=== PATIENT | male | born 1965 | race Caucasian/White ===

== ENCOUNTER 2019-12-31 15:31 | Outpatient (REF) | payer MEDICARE, MEDICAID, SELFPAY ==
[2019-12-31 16:03] LABS: MANUAL DIFF FLAG NO
[2019-12-31 16:04] LABS: Basophils Percent Auto 0.1 % (0-2); Hematocrit 40.3 % (42-52); Hemoglobin 12.9 g/dl (14.0-18.0); Imm Gran Abs Auto 0.03 X10*3/uL (0.00-0.03); Imm Gran Pct Auto 0.4 % (0.0-0.4); Lymphocytes Absolute Auto 1.4 X10*3/uL (1.2-4.9); Lymphocytes Percent Auto 17.4 % (20-40); Mean Corpuscular Hemoglobin 29.1 pg (27.0-33.0); Mean Corpuscular Volume 90.8 fL (80-98); Mean Platelet Volume 10.3 fL (9.4-12.4); Monocytes Absolute Auto 0.5 X10*3/uL (0.1-1.2); Monocytes Percent Auto 6.7 % (2-11); Neutrophils Absolute Auto 6.1 X10*3/uL (2.0-8.3); Neutrophils Percent Auto 75.4 % (45-73); Platelet Count 145 X10*3/uL (160-400); Red Blood Count 4.44 X10*6/uL (4.60-5.80); Red Cell Distribution Width 13.2 % (11.0-16.0); White Blood Count 8.1 X10*3/uL (4.8-10.8)
== END 2019-12-31 15:32 | disposition home or self-care (01) ==
LOC: HO.LABR 15:31
PROVIDERS: Visit Provider Clinical Nurse Specialist Psychiatric/Mental Health, Adult
DX: Z79.899 Other long term (current) drug therapy (principal)
CPT/HCPCS: 36415; 85025

== ENCOUNTER 2020-01-28 15:04 | Outpatient (REF) | payer MEDICARE, MEDICAID, SELFPAY ==
[2020-01-28 15:59] LABS: MANUAL DIFF FLAG NO
[2020-01-28 16:06] LABS: Basophils Percent Auto 0.1 % (0-2); Hematocrit 42.3 % (42-52); Hemoglobin 13.5 g/dl (14.0-18.0); Imm Gran Abs Auto 0.05 X10*3/uL (0.00-0.03); Imm Gran Pct Auto 0.5 % (0.0-0.4); Lymphocytes Absolute Auto 1.6 X10*3/uL (1.2-4.9); Lymphocytes Percent Auto 16.5 % (20-40); Mean Corpuscular HGB Conc 31.9 g/dl (31.0-36.0); Mean Corpuscular Hemoglobin 28.9 pg (27.0-33.0); Mean Corpuscular Volume 90.6 fL (80-98); Mean Platelet Volume 11.2 fL (9.4-12.4); Monocytes Absolute Auto 0.7 X10*3/uL (0.1-1.2); Monocytes Percent Auto 6.6 % (2-11); Neut%MD 76.3 %; Neutrophils Absolute Auto 7.5 X10*3/uL (2.0-8.3); Neutrophils Percent Auto 76.3 % (45-73); Platelet Count 186 X10*3/uL (160-400); Red Blood Count 4.67 X10*6/uL (4.60-5.80); Red Cell Distribution Width 13.2 % (11.0-16.0); WBCANC 9.9 X10*3/uL; White Blood Count 9.9 X10*3/uL (4.8-10.8)
== END 2020-01-28 15:05 | disposition home or self-care (01) ==
LOC: HO.LABR 15:04
PROVIDERS: Visit Provider Clinical Nurse Specialist Psychiatric/Mental Health, Adult
DX: Z79.899 Other long term (current) drug therapy (principal)
CPT/HCPCS: 36415; 85025

== ENCOUNTER 2020-02-25 15:33 | Outpatient (REF) | payer MEDICARE, MEDICAID, SELFPAY ==
[2020-02-25 16:25] LABS: MANUAL DIFF FLAG NO
[2020-02-25 16:31] LABS: Basophils Percent Auto 0.1 % (0-2); Hematocrit 41.1 % (42-52); Hemoglobin 13.4 g/dl (14.0-18.0); Imm Gran Abs Auto 0.07 X10*3/uL (0.00-0.03); Imm Gran Pct Auto 0.9 % (0.0-0.4); Lymphocytes Absolute Auto 1.8 X10*3/uL (1.2-4.9); Lymphocytes Percent Auto 22.5 % (20-40); Mean Corpuscular HGB Conc 32.6 g/dl (31.0-36.0); Mean Corpuscular Hemoglobin 29.2 pg (27.0-33.0); Mean Corpuscular Volume 89.5 fL (80-98); Mean Platelet Volume 10.8 fL (9.4-12.4); Monocytes Absolute Auto 0.7 X10*3/uL (0.1-1.2); Monocytes Percent Auto 8.5 % (2-11); Neutrophils Absolute Auto 5.4 X10*3/uL (2.0-8.3); Platelet Count 173 X10*3/uL (160-400); Red Blood Count 4.59 X10*6/uL (4.60-5.80); Red Cell Distribution Width 13.4 % (11.0-16.0); WBCANC 7.9 X10*3/uL; White Blood Count 7.9 X10*3/uL (4.8-10.8)
== END 2020-02-25 15:34 | disposition home or self-care (01) ==
LOC: HO.LABR 15:33
PROVIDERS: Visit Provider Clinical Nurse Specialist Psychiatric/Mental Health, Adult
DX: Z79.899 Other long term (current) drug therapy (principal)
CPT/HCPCS: 36415; 85025

== ENCOUNTER 2020-03-31 15:24 | Outpatient (REF) | payer MEDICARE, MEDICAID, SELFPAY ==
[2020-03-31 16:01] LABS: MANUAL DIFF FLAG NO
[2020-03-31 16:08] LABS: Hematocrit 41.6 % (42-52); Imm Gran Abs Auto 0.05 X10*3/uL (0.00-0.03); Imm Gran Pct Auto 0.6 % (0.0-0.4); Lymphocytes Absolute Auto 1.7 X10*3/uL (1.2-4.9); Lymphocytes Percent Auto 20.9 % (20-40); Mean Corpuscular HGB Conc 31.3 g/dl (31.0-36.0); Mean Corpuscular Volume 92.9 fL (80-98); Mean Platelet Volume 10.2 fL (9.4-12.4); Monocytes Absolute Auto 0.5 X10*3/uL (0.1-1.2); Monocytes Percent Auto 6.6 % (2-11); Neut%MD 71.9 %; Neutrophils Absolute Auto 5.9 X10*3/uL (2.0-8.3); Neutrophils Percent Auto 71.9 % (45-73); Platelet Count 166 X10*3/uL (160-400); Red Blood Count 4.48 X10*6/uL (4.60-5.80); Red Cell Distribution Width 13.4 % (11.0-16.0); WBCANC 8.2 X10*3/uL; White Blood Count 8.2 X10*3/uL (4.8-10.8)
== END 2020-03-31 15:25 | disposition home or self-care (01) ==
LOC: HO.LABR 15:24
PROVIDERS: Visit Provider Clinical Nurse Specialist Psychiatric/Mental Health, Adult
DX: Z79.899 Other long term (current) drug therapy (principal)
CPT/HCPCS: 36415; 85025; 85048

== ENCOUNTER 2020-05-08 15:24 | Outpatient (REF) | payer MEDICARE, MEDICAID, SELFPAY ==
[2020-05-08 15:46] LABS: MANUAL DIFF FLAG NO
[2020-05-08 15:53] LABS: Hemoglobin 12.8 g/dl (14.0-18.0); Imm Gran Abs Auto 0.04 X10*3/uL (0.00-0.03); Imm Gran Pct Auto 0.5 % (0.0-0.4); Lymphocytes Absolute Auto 1.7 X10*3/uL (1.2-4.9); Mean Corpuscular HGB Conc 31.2 g/dl (31.0-36.0); Mean Corpuscular Hemoglobin 28.6 pg (27.0-33.0); Mean Corpuscular Volume 91.5 fL (80-98); Mean Platelet Volume 10.8 fL (9.4-12.4); Monocytes Absolute Auto 0.7 X10*3/uL (0.1-1.2); Monocytes Percent Auto 8.2 % (2-11); Neut%MD 70.3 %; Neutrophils Absolute Auto 5.6 X10*3/uL (2.0-8.3); Neutrophils Percent Auto 70.3 % (45-73); Platelet Count 166 X10*3/uL (160-400); Red Blood Count 4.48 X10*6/uL (4.60-5.80); Red Cell Distribution Width 13.2 % (11.0-16.0)
== END 2020-05-08 15:25 | disposition home or self-care (01) ==
LOC: HO.LABR 15:24
PROVIDERS: PCP Nurse Practitioner Family; Visit Provider Clinical Nurse Specialist Psychiatric/Mental Health, Adult
DX: Z79.899 Other long term (current) drug therapy (principal)
CPT/HCPCS: 36415; 85025; 85048

== ENCOUNTER 2020-05-28 14:15 | Outpatient (REF) | payer MEDICARE, MEDICAID, SELFPAY ==
[2020-05-28 14:52] LABS: MANUAL DIFF FLAG NO
[2020-05-28 14:54] LABS: Hemoglobin 13.7 g/dl (14.0-18.0); Imm Gran Abs Auto 0.06 X10*3/uL (0.00-0.03); Imm Gran Pct Auto 0.6 % (0.0-0.4); Lymphocytes Absolute Auto 1.6 X10*3/uL (1.2-4.9); Lymphocytes Percent Auto 14.8 % (20-40); Mean Corpuscular HGB Conc 31.1 g/dl (31.0-36.0); Mean Corpuscular Hemoglobin 28.5 pg (27.0-33.0); Mean Corpuscular Volume 91.7 fL (80-98); Mean Platelet Volume 10.7 fL (9.4-12.4); Monocytes Absolute Auto 0.7 X10*3/uL (0.1-1.2); Monocytes Percent Auto 6.6 % (2-11); Neutrophils Absolute Auto 8.3 X10*3/uL (2.0-8.3); Platelet Count 160 X10*3/uL (160-400); Red Cell Distribution Width 13.2 % (11.0-16.0); WBCANC 10.7 X10*3/uL; White Blood Count 10.7 X10*3/uL (4.8-10.8)
== END 2020-05-28 14:16 | disposition home or self-care (01) ==
LOC: HO.LABR 14:15
PROVIDERS: Visit Provider Clinical Nurse Specialist Psychiatric/Mental Health, Adult
DX: Z79.899 Other long term (current) drug therapy (principal)
CPT/HCPCS: 36415; 85025; 85048

== ENCOUNTER 2020-06-30 15:36 | Outpatient (REF) | payer MEDICARE, MEDICAID, SELFPAY ==
[2020-06-30 16:05] LABS: MANUAL DIFF FLAG NO
[2020-06-30 16:18] LABS: Hematocrit 42.6 % (42-52); Hemoglobin 13.5 g/dl (14.0-18.0); Imm Gran Abs Auto 0.04 X10*3/uL (0.00-0.03); Imm Gran Pct Auto 0.5 % (0.0-0.4); Lymphocytes Percent Auto 25.5 % (20-40); Mean Corpuscular HGB Conc 31.7 g/dl (31.0-36.0); Mean Corpuscular Hemoglobin 28.8 pg (27.0-33.0); Mean Corpuscular Volume 90.8 fL (80-98); Mean Platelet Volume 10.8 fL (9.4-12.4); Monocytes Absolute Auto 0.7 X10*3/uL (0.1-1.2); Monocytes Percent Auto 9.2 % (2-11); Neut%MD 64.8 %; Neutrophils Absolute Auto 5.1 X10*3/uL (2.0-8.3); Neutrophils Percent Auto 64.8 % (45-73); Platelet Count 181 X10*3/uL (160-400); Red Blood Count 4.69 X10*6/uL (4.60-5.80); Red Cell Distribution Width 13.4 % (11.0-16.0); WBCANC 7.9 X10*3/uL; White Blood Count 7.9 X10*3/uL (4.8-10.8)
== END 2020-06-30 15:37 | disposition home or self-care (01) ==
LOC: HO.LABR 15:36
PROVIDERS: PCP Internal Medicine; Visit Provider Clinical Nurse Specialist Psychiatric/Mental Health, Adult
DX: Z79.899 Other long term (current) drug therapy (principal)
CPT/HCPCS: 36415; 85025; 85048

== ENCOUNTER 2020-07-28 15:32 | Outpatient (REF) | payer MEDICARE, MEDICAID, SELFPAY ==
[2020-07-28 16:06] LABS: MANUAL DIFF FLAG NO
[2020-07-28 16:10] LABS: Hematocrit 41.2 % (42-52); Hemoglobin 13.1 g/dl (14.0-18.0); Imm Gran Abs Auto 0.04 X10*3/uL (0.00-0.03); Imm Gran Pct Auto 0.5 % (0.0-0.4); Lymphocytes Absolute Auto 1.6 X10*3/uL (1.2-4.9); Mean Corpuscular HGB Conc 31.8 g/dl (31.0-36.0); Mean Corpuscular Hemoglobin 28.7 pg (27.0-33.0); Mean Corpuscular Volume 90.4 fL (80-98); Mean Platelet Volume 10.9 fL (9.4-12.4); Monocytes Absolute Auto 0.7 X10*3/uL (0.1-1.2); Monocytes Percent Auto 7.3 % (2-11); Neutrophils Absolute Auto 6.6 X10*3/uL (2.0-8.3); Neutrophils Percent Auto 74.2 % (45-73); Platelet Count 174 X10*3/uL (160-400); Red Blood Count 4.56 X10*6/uL (4.60-5.80); Red Cell Distribution Width 13.3 % (11.0-16.0); White Blood Count 8.9 X10*3/uL (4.8-10.8)
== END 2020-07-28 15:33 | disposition home or self-care (01) ==
LOC: HO.LABR 15:32
PROVIDERS: PCP Internal Medicine; Visit Provider Clinical Nurse Specialist Psychiatric/Mental Health, Adult
DX: Z79.899 Other long term (current) drug therapy (principal)
CPT/HCPCS: 36415; 85025

== ENCOUNTER 2020-08-25 15:42 | Outpatient (REF) | payer MEDICARE, MEDICAID, SELFPAY ==
[2020-08-25 17:30] LABS: MANUAL DIFF FLAG NO
[2020-08-25 17:40] LABS: Hematocrit 43.4 % (42-52); Hemoglobin 13.8 g/dl (14.0-18.0); Imm Gran Abs Auto 0.04 X10*3/uL (0.00-0.03); Imm Gran Pct Auto 0.4 % (0.0-0.4); Lymphocytes Absolute Auto 1.7 X10*3/uL (1.2-4.9); Lymphocytes Percent Auto 18.5 % (20-40); Mean Corpuscular HGB Conc 31.8 g/dl (31.0-36.0); Mean Corpuscular Hemoglobin 28.6 pg (27.0-33.0); Mean Corpuscular Volume 89.9 fL (80-98); Mean Platelet Volume 12.1 fL (9.4-12.4); Monocytes Absolute Auto 0.6 X10*3/uL (0.1-1.2); Monocytes Percent Auto 6.9 % (2-11); Neut%MD 74.2 %; Neutrophils Absolute Auto 6.6 X10*3/uL (2.0-8.3); Neutrophils Percent Auto 74.2 % (45-73); Platelet Count 173 X10*3/uL (160-400); Red Blood Count 4.83 X10*6/uL (4.60-5.80); Red Cell Distribution Width 13.4 % (11.0-16.0)
== END 2020-08-25 15:43 | disposition home or self-care (01) ==
LOC: HO.LABR 15:42
PROVIDERS: Visit Provider Clinical Nurse Specialist Psychiatric/Mental Health, Adult
DX: Z79.899 Other long term (current) drug therapy (principal)
CPT/HCPCS: 36415; 85025; 85048

== ENCOUNTER 2020-08-28 12:43 | Outpatient (REF) | payer MEDICARE, MEDICAID, SELFPAY ==
[2020-08-28 13:04] LABS: COVID-19 Test Negative (Negative); IDNOW Serial# 9DD0AD1C
== END 2020-08-28 12:44 | disposition home or self-care (01) ==
LOC: HO.LAB 12:43
PROVIDERS: Visit Provider Internal Medicine
DX: Z20.822 Contact with and (suspected) exposure to COVID-19 (principal)
CPT/HCPCS: 36415; 87635; C9803

== ENCOUNTER 2020-09-22 15:25 | Outpatient (REF) | payer MEDICARE, MEDICAID, SELFPAY ==
[2020-09-22 15:38] LABS: MANUAL DIFF FLAG NO
[2020-09-22 15:42] LABS: Basophils Percent Auto 0.1 % (0-2); Hematocrit 42.6 % (42-52); Hemoglobin 13.4 g/dl (14.0-18.0); Imm Gran Abs Auto 0.06 X10*3/uL (0.00-0.03); Imm Gran Pct Auto 0.6 % (0.0-0.4); Lymphocytes Absolute Auto 1.8 X10*3/uL (1.2-4.9); Lymphocytes Percent Auto 16.9 % (20-40); Mean Corpuscular HGB Conc 31.5 g/dl (31.0-36.0); Mean Corpuscular Hemoglobin 28.5 pg (27.0-33.0); Mean Corpuscular Volume 90.4 fL (80-98); Mean Platelet Volume 10.5 fL (9.4-12.4); Monocytes Absolute Auto 0.8 X10*3/uL (0.1-1.2); Monocytes Percent Auto 7.3 % (2-11); Neutrophils Absolute Auto 8.1 X10*3/uL (2.0-8.3); Neutrophils Percent Auto 75.1 % (45-73); Platelet Count 178 X10*3/uL (160-400); Red Blood Count 4.71 X10*6/uL (4.60-5.80); Red Cell Distribution Width 13.7 % (11.0-16.0); White Blood Count 10.7 X10*3/uL (4.8-10.8)
[2020-09-22 16:40] LABS: Prostate Specific Antigen 1.27 ng/mL (<0.05-4.0)
== END 2020-09-22 15:26 | disposition home or self-care (01) ==
LOC: HO.LABR 15:25
PROVIDERS: Nurse Practitioner Family; PCP Internal Medicine; Visit Provider Clinical Nurse Specialist Psychiatric/Mental Health, Adult
DX: Z12.5 Encounter for screening for malignant neoplasm of prostate (principal); Z79.899 Other long term (current) drug therapy
CPT/HCPCS: 36415; 84153; 85025

== ENCOUNTER 2020-09-29 13:52 | Outpatient (REF) | payer MEDICARE, MEDICAID, SELFPAY ==
[2020-09-29 14:19] LABS: MANUAL DIFF FLAG NO
[2020-09-29 14:24] LABS: Hematocrit 41.8 % (42-52); Hemoglobin 13.3 g/dl (14.0-18.0); Imm Gran Abs Auto 0.05 X10*3/uL (0.00-0.03); Imm Gran Pct Auto 0.5 % (0.0-0.4); Lymphocytes Absolute Auto 1.6 X10*3/uL (1.2-4.9); Lymphocytes Percent Auto 16.1 % (20-40); Mean Corpuscular HGB Conc 31.8 g/dl (31.0-36.0); Mean Corpuscular Hemoglobin 28.6 pg (27.0-33.0); Mean Corpuscular Volume 89.9 fL (80-98); Mean Platelet Volume 10.8 fL (9.4-12.4); Monocytes Absolute Auto 0.6 X10*3/uL (0.1-1.2); Monocytes Percent Auto 6.5 % (2-11); Neutrophils Absolute Auto 7.5 X10*3/uL (2.0-8.3); Neutrophils Percent Auto 76.9 % (45-73); Platelet Count 156 X10*3/uL (160-400); Red Blood Count 4.65 X10*6/uL (4.60-5.80); Red Cell Distribution Width 13.3 % (11.0-16.0); White Blood Count 9.7 X10*3/uL (4.8-10.8)
== END 2020-09-29 13:53 | disposition home or self-care (01) ==
LOC: HO.LABR 13:52
PROVIDERS: PCP Physician Assistant; Visit Provider Clinical Nurse Specialist Psychiatric/Mental Health, Adult
DX: Z79.899 Other long term (current) drug therapy (principal)
CPT/HCPCS: 36415; 85025

== ENCOUNTER 2020-10-29 13:28 | Outpatient (REF) | payer MEDICARE, MEDICAID, SELFPAY ==
[2020-10-29 14:17] LABS: MANUAL DIFF FLAG NO
[2020-10-29 14:20] LABS: Hematocrit 41.5 % (42-52); Hemoglobin 13.1 g/dl (14.0-18.0); Imm Gran Abs Auto 0.08 X10*3/uL (0.00-0.03); Imm Gran Pct Auto 1.1 % (0.0-0.4); Lymphocytes Absolute Auto 1.5 X10*3/uL (1.2-4.9); Lymphocytes Percent Auto 19.7 % (20-40); Mean Corpuscular HGB Conc 31.6 g/dl (31.0-36.0); Mean Corpuscular Hemoglobin 28.7 pg (27.0-33.0); Mean Platelet Volume 10.6 fL (9.4-12.4); Monocytes Absolute Auto 0.6 X10*3/uL (0.1-1.2); Monocytes Percent Auto 7.9 % (2-11); Neutrophils Absolute Auto 5.4 X10*3/uL (2.0-8.3); Neutrophils Percent Auto 71.3 % (45-73); Platelet Count 170 X10*3/uL (160-400); Red Blood Count 4.56 X10*6/uL (4.60-5.80); Red Cell Distribution Width 13.4 % (11.0-16.0); White Blood Count 7.6 X10*3/uL (4.8-10.8)
== END 2020-10-29 13:29 | disposition home or self-care (01) ==
LOC: HO.LABR 13:28
PROVIDERS: PCP Internal Medicine; Visit Provider Clinical Nurse Specialist Psychiatric/Mental Health, Adult
DX: Z79.899 Other long term (current) drug therapy (principal)
CPT/HCPCS: 36415; 85025

== ENCOUNTER 2020-12-01 15:37 | Outpatient (REF) | payer MEDICARE, MEDICAID, SELFPAY ==
[2020-12-01 16:51] LABS: MANUAL DIFF FLAG NO
[2020-12-01 16:54] LABS: Hematocrit 41.1 % (42-52); Hemoglobin 13.2 g/dl (14.0-18.0); Imm Gran Abs Auto 0.06 X10*3/uL (0.00-0.03); Imm Gran Pct Auto 0.6 % (0.0-0.4); Lymphocytes Absolute Auto 1.4 X10*3/uL (1.2-4.9); Mean Corpuscular HGB Conc 32.1 g/dl (31.0-36.0); Mean Corpuscular Hemoglobin 28.8 pg (27.0-33.0); Mean Corpuscular Volume 89.7 fL (80-98); Mean Platelet Volume 11.2 fL (9.4-12.4); Monocytes Absolute Auto 0.8 X10*3/uL (0.1-1.2); Monocytes Percent Auto 8.1 % (2-11); Neutrophils Absolute Auto 7.9 X10*3/uL (2.0-8.3); Neutrophils Percent Auto 77.3 % (45-73); Platelet Count 176 X10*3/uL (160-400); Red Blood Count 4.58 X10*6/uL (4.60-5.80); Red Cell Distribution Width 13.5 % (11.0-16.0); White Blood Count 10.2 X10*3/uL (4.8-10.8)
== END 2020-12-01 15:38 | disposition home or self-care (01) ==
LOC: HO.LABR 15:37
PROVIDERS: PCP Internal Medicine; Visit Provider Clinical Nurse Specialist Psychiatric/Mental Health, Adult
DX: Z79.899 Other long term (current) drug therapy (principal)
CPT/HCPCS: 36415; 85025

== ENCOUNTER 2020-12-29 16:07 | Outpatient (REF) | payer MEDICARE, MEDICAID, SELFPAY ==
[2020-12-29 16:31] LABS: MANUAL DIFF FLAG NO
[2020-12-29 16:59] LABS: Basophils Percent Auto 0.1 % (0-2); Hematocrit 41.4 % (42-52); Hemoglobin 13.2 g/dl (14.0-18.0); Imm Gran Abs Auto 0.05 X10*3/uL (0.00-0.03); Imm Gran Pct Auto 0.5 % (0.0-0.4); Lymphocytes Absolute Auto 1.4 X10*3/uL (1.2-4.9); Lymphocytes Percent Auto 13.7 % (20-40); Mean Corpuscular HGB Conc 31.9 g/dl (31.0-36.0); Mean Corpuscular Hemoglobin 28.5 pg (27.0-33.0); Mean Corpuscular Volume 89.4 fL (80-98); Mean Platelet Volume 11.5 fL (9.4-12.4); Monocytes Absolute Auto 0.7 X10*3/uL (0.1-1.2); Monocytes Percent Auto 7.5 % (2-11); Neut%MD 78.2 %; Neutrophils Absolute Auto 7.7 X10*3/uL (2.0-8.3); Neutrophils Percent Auto 78.2 % (45-73); Platelet Count 172 X10*3/uL (160-400); Red Blood Count 4.63 X10*6/uL (4.60-5.80); Red Cell Distribution Width 13.4 % (11.0-16.0); WBCANC 9.8 X10*3/uL; White Blood Count 9.8 X10*3/uL (4.8-10.8)
== END 2020-12-29 16:08 | disposition home or self-care (01) ==
LOC: HO.LABR 16:07
PROVIDERS: PCP Internal Medicine; Visit Provider Clinical Nurse Specialist Psychiatric/Mental Health, Adult
DX: Z79.899 Other long term (current) drug therapy (principal)
CPT/HCPCS: 36415; 85025

== ENCOUNTER 2021-01-01 15:18 | Outpatient (REF) | payer MEDICARE, MEDICAID, SELFPAY ==
[2021-01-01 16:53] LABS: Lithium 0.81 mmol/L (0.60-1.20)
[2021-01-01 16:59] LABS: Anion Gap 12 (12-20); Blood Urea Nitrogen 12 mg/dL (9-16); Calcium 8.9 mg/dL (8.4-10.2); Carbon Dioxide 26 mmol/L (22-29); Chloride 108 mmol/L (96-108); Estimated Glomerular Filt Rate 54; Glucose Random 94 mg/dL (60-115); Potassium 4.1 mmol/L (3.3-5.1); Sodium 142 mmol/L (135-145)
[2021-01-01 17:21] LABS: Thyroid Stimulating Hormone 0.94 uIU/mL (0.32-4.0)
== END 2021-01-01 15:19 | disposition home or self-care (01) ==
LOC: HO.LABR 15:18
PROVIDERS: PCP Physician Assistant; Visit Provider Clinical Nurse Specialist Psychiatric/Mental Health, Adult
DX: Z79.899 Other long term (current) drug therapy (principal)
CPT/HCPCS: 36415; 80048; 80178; 84443

== ENCOUNTER 2021-01-26 15:40 | Outpatient (REF) | payer MEDICARE, MEDICAID, SELFPAY ==
[2021-01-26 15:47] LABS: MANUAL DIFF FLAG NO
[2021-01-26 16:04] LABS: Hematocrit 41.1 % (42.0-52.0); Hemoglobin 13.2 g/dl (14.0-18.0); Imm Gran Abs Auto 0.07 X10*3/uL (0.00-0.03); Imm Gran Pct Auto 0.9 % (0.0-0.4); Lymphocytes Absolute Auto 1.5 X10*3/uL (1.2-4.9); Lymphocytes Percent Auto 19.7 % (20-40); Mean Corpuscular HGB Conc 32.1 g/dl (31.0-36.0); Mean Corpuscular Hemoglobin 28.9 pg (27.0-33.0); Mean Corpuscular Volume 90.1 fL (80.0-98.0); Mean Platelet Volume 10.3 fL (9.4-12.4); Monocytes Absolute Auto 0.6 X10*3/uL (0.1-1.2); Monocytes Percent Auto 8.1 % (2-11); Neutrophils Absolute Auto 5.53 x10*3/uL (2.0-8.3); Neutrophils Percent Auto 71.3 % (45-73); Platelet Count 187 X10*3/uL (160-400); Red Blood Count 4.56 X10*6/uL (4.60-5.80); Red Cell Distribution Width 13.2 % (11.0-16.0); White Blood Count 7.8 X10*3/uL (4.8-10.8)
== END 2021-01-26 15:41 | disposition home or self-care (01) ==
LOC: HO.LAB 15:40
PROVIDERS: Visit Provider Clinical Nurse Specialist Psychiatric/Mental Health, Adult
DX: Z79.899 Other long term (current) drug therapy (principal)
CPT/HCPCS: 36415; 85025

== ENCOUNTER 2021-03-04 15:31 | Outpatient (REF) | payer MEDICARE, MEDICAID, SELFPAY ==
[2021-03-04 15:44] LABS: MANUAL DIFF FLAG NO
[2021-03-04 16:00] LABS: Basophils Percent Auto 0.1 % (0-2); Hemoglobin 13.1 g/dl (14.0-18.0); Imm Gran Abs Auto 0.02 X10*3/uL (0.00-0.03); Imm Gran Pct Auto 0.3 % (0.0-0.4); Lymphocytes Absolute Auto 1.6 X10*3/uL (1.2-4.9); Lymphocytes Percent Auto 20.7 % (20-40); Mean Corpuscular Hemoglobin 28.9 pg (27.0-33.0); Mean Corpuscular Volume 90.5 fL (80.0-98.0); Mean Platelet Volume 10.7 fL (9.4-12.4); Monocytes Absolute Auto 0.5 X10*3/uL (0.1-1.2); Monocytes Percent Auto 6.9 % (2-11); Neutrophils Absolute Auto 5.4 x10*3/uL (2.0-8.3); Platelet Count 168 X10*3/uL (160-400); Red Blood Count 4.53 X10*6/uL (4.60-5.80); WBCANC 7.5 X10*3/uL; White Blood Count 7.5 X10*3/uL (4.8-10.8)
== END 2021-03-04 15:32 | disposition home or self-care (01) ==
LOC: HO.LAB 15:31
PROVIDERS: PCP Internal Medicine; Visit Provider Clinical Nurse Specialist Psychiatric/Mental Health, Adult
DX: Z79.899 Other long term (current) drug therapy (principal)
CPT/HCPCS: 36415; 85025

== ENCOUNTER 2021-03-30 13:16 | Outpatient (REF) | payer MEDICARE, MEDICAID, SELFPAY ==
[2021-03-30 13:37] LABS: MANUAL DIFF FLAG NO
[2021-03-30 14:04] LABS: Hematocrit 44.4 % (42.0-52.0); Hemoglobin 13.9 g/dl (14.0-18.0); Imm Gran Abs Auto 0.07 X10*3/uL (0.00-0.03); Imm Gran Pct Auto 0.9 % (0.0-0.4); Lymphocytes Absolute Auto 1.4 X10*3/uL (1.2-4.9); Lymphocytes Percent Auto 18.3 % (20-40); Mean Corpuscular HGB Conc 31.3 g/dl (31.0-36.0); Mean Corpuscular Hemoglobin 28.5 pg (27.0-33.0); Mean Platelet Volume 11.2 fL (9.4-12.4); Monocytes Absolute Auto 0.6 X10*3/uL (0.1-1.2); Monocytes Percent Auto 7.7 % (2-11); Neutrophils Absolute Auto 5.6 x10*3/uL (2.0-8.3); Neutrophils Percent Auto 73.1 % (45-73); Platelet Count 169 X10*3/uL (160-400); Red Blood Count 4.88 X10*6/uL (4.60-5.80); Red Cell Distribution Width 13.2 % (11.0-16.0); White Blood Count 7.7 X10*3/uL (4.8-10.8)
== END 2021-03-30 13:17 | disposition home or self-care (01) ==
LOC: HO.LABR 13:16
PROVIDERS: Clinical Nurse Specialist Psychiatric/Mental Health, Adult; PCP Physician Assistant; Visit Provider Physician Assistant
DX: Z79.899 Other long term (current) drug therapy (principal)
CPT/HCPCS: 36415; 85025

== ENCOUNTER 2021-04-27 15:28 | Outpatient (REF) | payer MEDICARE, MEDICAID, SELFPAY ==
[2021-04-27 15:49] LABS: MANUAL DIFF FLAG NO
[2021-04-27 16:03] LABS: Basophils Percent Auto 0.1 % (0-2); Hematocrit 42.3 % (42.0-52.0); Hemoglobin 13.3 g/dl (14.0-18.0); Imm Gran Abs Auto 0.05 X10*3/uL (0.00-0.03); Imm Gran Pct Auto 0.5 % (0.0-0.4); Lymphocytes Absolute Auto 1.5 X10*3/uL (1.2-4.9); Lymphocytes Percent Auto 14.3 % (20-40); Mean Corpuscular HGB Conc 31.4 g/dl (31.0-36.0); Mean Corpuscular Hemoglobin 28.4 pg (27.0-33.0); Mean Corpuscular Volume 90.2 fL (80.0-98.0); Mean Platelet Volume 10.6 fL (9.4-12.4); Monocytes Absolute Auto 0.7 X10*3/uL (0.1-1.2); Monocytes Percent Auto 6.7 % (2-11); Neut%MD 78.4 %; Neutrophils Absolute Auto 8.1 x10*3/uL (2.0-8.3); Neutrophils Percent Auto 78.4 % (45-73); Platelet Count 162 X10*3/uL (160-400); Red Blood Count 4.69 X10*6/uL (4.60-5.80); Red Cell Distribution Width 13.2 % (11.0-16.0); WBCANC 10.4 X10*3/uL; White Blood Count 10.4 X10*3/uL (4.8-10.8)
== END 2021-04-27 15:29 | disposition home or self-care (01) ==
LOC: HO.LABR 15:28
PROVIDERS: PCP Physician Assistant; Visit Provider Clinical Nurse Specialist Psychiatric/Mental Health, Adult
DX: Z79.899 Other long term (current) drug therapy (principal)
CPT/HCPCS: 36415; 85025

== ENCOUNTER 2021-05-17 15:09 | Outpatient (REF) | payer MEDICARE, MEDICAID, SELFPAY ==
--- NOTE | ~2021-05-17 | XR_ITS ---
EXAMINATION: XR HIP, RIGHT CLINICAL INFORMATION: Pain COMPARISON: None TECHNIQUE: Two views of the right hip and one view of the pelvis. FINDINGS: Bone alignment is normal. No fracture or dislocation is seen. The right hip joint is normal. Bones of the pelvis are unremarkable. There is mild arthritis with small osteophyte at the left hip joint. There is proliferative bone reaction of the adjacent to both iliac crests. There are degenerative changes of the lower lumbar spine. XR/XR hip RT min 2V IMPRESSION: Normal-appearing right hip.
== END 2021-05-17 15:10 | disposition home or self-care (01) ==
LOC: HO.XRAY 15:09
PROVIDERS: PCP Internal Medicine; Visit Provider Physician Assistant
DX: M25.551 Pain in right hip (principal)
CPT/HCPCS: 73502

== ENCOUNTER 2021-05-26 15:23 | Outpatient (REF) | payer MEDICARE, MEDICAID, SELFPAY ==
[2021-05-26 15:33] LABS: MANUAL DIFF FLAG NO
[2021-05-26 15:44] LABS: Hematocrit 43.7 % (42.0-52.0); Hemoglobin 13.9 g/dl (14.0-18.0); Imm Gran Abs Auto 0.03 X10*3/uL (0.00-0.03); Imm Gran Pct Auto 0.4 % (0.0-0.4); Lymphocytes Absolute Auto 1.3 X10*3/uL (1.2-4.9); Lymphocytes Percent Auto 17.4 % (20-40); Mean Corpuscular HGB Conc 31.8 g/dl (31.0-36.0); Mean Corpuscular Hemoglobin 28.5 pg (27.0-33.0); Mean Corpuscular Volume 89.5 fL (80.0-98.0); Mean Platelet Volume 10.9 fL (9.4-12.4); Monocytes Absolute Auto 0.5 X10*3/uL (0.1-1.2); Neutrophils Absolute Auto 5.5 x10*3/uL (2.0-8.3); Neutrophils Percent Auto 75.2 % (45-73); Platelet Count 159 X10*3/uL (160-400); Red Blood Count 4.88 X10*6/uL (4.60-5.80); Red Cell Distribution Width 13.2 % (11.0-16.0); White Blood Count 7.3 X10*3/uL (4.8-10.8)
== END 2021-05-26 15:24 | disposition home or self-care (01) ==
LOC: HO.LABR 15:23
PROVIDERS: Visit Provider Clinical Nurse Specialist Psychiatric/Mental Health, Adult
DX: Z79.899 Other long term (current) drug therapy (principal)
CPT/HCPCS: 36415; 85025

== ENCOUNTER 2021-06-15 07:46 | Day surgery (SDC) | payer MEDICARE, MEDICAID, SELFPAY ==
[2021-06-10 15:32] VITALS: BMI 39.7
--- NOTE | 2021-06-14 10:49 | HO.ANESPROP2 ---
Documented by User: Odalys Whatley NP 06/14/21 10:50 HPI - Anesthesia Eval Consult details Narrative: 55yo M for Colonoscopy PMFSH Active Problems Active Problems: All Active Problems (Updated 06/10/21 @ 15:21 by Eileen Shields RN) Cough (Acute) Benign prostate hyperplasia (Acute) Adult general medical exam (Acute) Essential hypertension (Acute) Right hip pain (Acute) Status post fall (Acute) Screening for colon cancer (Acute) Screening for prostate cancer (Acute) Essential (primary) hypertension (Acute) Diabetes mellitus (Acute) Schizophrenia, unspecified (Acute) Past Medical History Medical History BPH (benign prostatic hyperplasia) Diabetes mellitus Essential (primary) hypertension Schizophrenia, unspecified Screening for colon cancer Screening for prostate cancer Family History Family History Mother Cancer Father Kidney agenesis Surgical History Surgical History History of root canal procedure History of tooth extraction Social History Social History Housing: Apartment Alcohol intake: never Patient Tobacco Use Status: Never used Tobacco e-Cigarette/Vaping Use: Never Used Second Hand Smoke Exposure: No Use of substances other than those prescribed or required for medical reasons: No Are you DNR?: No Advance Directives: No Advance Directives Information Provided: Yes Recently lost weight without trying: No service: No Current occupational status: employed Cognitive needs: No Hearing needs: No Vision needs: No Meds Allergies Allergy/AdvReac Type Severity Reaction Status Date / Time No Known Allergies [NKA] Allergy Unknown NONE Verified 05/17/21 14:49 Home Medications Medication Instructions Recorded Confirmed Last Taken Type clozapine 100 mg tablet mg PO 05/18/20 05/17/21 Unknown History lithium carbonate 300 mg capsule mg PO 05/18/20 05/17/21 Unknown History lorazepam 2 mg tablet mg PO 05/18/20 05/17/21 Unknown History olanzapine 10 mg tablet mg PO 05/18/20 05/17/21 Unknown History sertraline 100 mg tablet mg PO 05/18/20 05/17/21 Unknown History Exam Exam Date and Time: June 14, 2021 1049 Height,Weight and Vital Signs: Height 5 ft 7 in Weight 115.212 kg Pertinent Lab Results Pertinent Lab Results: Laboratory Tests 01/01/21 05/26/21 15:54 15:31 WBC 7.3 Hgb 13.9 L Hct 43.7 Plt Count 159 L Sodium 142 Potassium 4.1 Chloride 108 Carbon Dioxide 26 BUN 12 Creatinine 1.36 Assessment and Plan Assessment Anesthesia Assessment: Chart Reviewed Documented by User: Luis Antonio Smith MD 06/15/21 15:32 PMFSH Past Medical History Medical History BPH (benign prostatic hyperplasia) Diabetes mellitus Essential (primary) hypertension Schizophrenia, unspecified Screening for colon cancer Screening for prostate cancer Family History Family History Mother Cancer Father Kidney agenesis Family history of problems with anesthesia: No Surgical History Surgical History History of root canal procedure History of tooth extraction History of Problems with Anesthesia: No Social History Social History Housing: Apartment Alcohol intake: never Patient Tobacco Use Status: Never used Tobacco e-Cigarette/Vaping Use: Never Used Second Hand Smoke Exposure: No Use of substances other than those prescribed or required for medical reasons: No Are you DNR?: No Advance Directives: No Advance Directives Information Provided: Yes Recently lost weight without trying: No service: No Current occupational status: employed Cognitive needs: No Hearing needs: No Vision needs: No Meds Allergies Allergy/AdvReac Type Severity Reaction Status Date / Time No Known Allergies [NKA] Allergy Unknown NONE Verified 05/17/21 14:49 Home Medications Medication Instructions Recorded Confirmed Last Taken Type clozapine 100 mg tablet mg PO 05/18/20 05/17/21 Unknown History lithium carbonate 300 mg capsule mg PO 05/18/20 05/17/21 Unknown History lorazepam 2 mg tablet mg PO 05/18/20 05/17/21 Unknown History olanzapine 10 mg tablet mg PO 05/18/20 05/17/21 Unknown History sertraline 100 mg tablet mg PO 05/18/20 05/17/21 Unknown History Exam Airway Mallampati Class: III TM Dist: >3cm Neck ROM: Full Partial: Upper Loose/Missing/Broken Teeth: Yes Heart: rrr Lungs: bl breath sounds Assessment and Plan Assessment Anesthesia Assessment: Anesthesia Plan Discussed Final Anesthetic Review Family History of Problems with Anesthesia: No History of Problems with Anesthesia: No NPO: Yes ASA Class: III Final Preanesthetic Review: Meds/Allgs Chart Reviewed, Consent Obtained/Reviewed and Anes Risks/Benef Reviewed Patient Risk: Intermediate Procedure Risk: Intermediate Anesthetic Plan Anesthetic Plan: MAC: Disposition: Standard PACU
[2021-06-15 08:14] VITALS: BP 152/81; PULSE 77; RESP 20; TEMP 37.1; O2SAT 96
[2021-06-15] MEDS: Lactated Ringers 1,000 ML 100 ML IVCONT (08:20)
--- NOTE | 2021-06-15 08:50 | MHC.SHP ---
Pre-Procedural Eval Section A Date of Service: 06/15/21 The patient is an INPATIENT: No Changes since office visit: No Cold of Flu in the past 2 weeks, No New Medical Problems, No Changes in Medication and No Patient answered all questions The History & Physical has been completed within 30 days and I have reviewed it.: Yes Section B Chief Complaint: screening Allergies: Allergies Allergy/AdvReac Type Severity Reaction Status Date / Time No Known Allergies [NKA] Allergy Unknown NONE Verified 05/17/21 14:49 Plan I have reviewed the history and physical and performed a pertinent physical examination on my patient. No changes have occurred unless specified.
[2021-06-15 08:53] LABS: Glucose, Whole Blood 127 mg/dL (60-115)
--- NOTE | 2021-06-15 10:14 | P.BOP_ITS ---
Brief Operative Note Date of Service: 06/15/21 Pre-op diagnosis: screening colonoscopy Post-op diagnosis: same (colon polyps) Procedure: [id number] Surgeon: Remy Rodriguez Anesthesia: MAC Was an Micropaleontologist used for this Procedure?: No Estimated blood loss (mL): 20 Pathology: other (multiple polyps) Condition: stable Disposition: PACU
--- NOTE | 2021-06-15 10:14 | PM.OP ---
Brief Operative Note Date of Service: 06/15/21 Pre-op diagnosis: screening colonoscopy Post-op diagnosis: same (colon polyps) Procedure: [id number] Surgeon: Remy Rodriguez Anesthesia: MAC Was an [place] Stitcher used for this Procedure?: No Estimated blood loss (mL): 20 Pathology: other (multiple polyps) Condition: stable Disposition: PACU
[2021-06-15 10:17] VITALS: BP 136/79; PULSE 86; RESP 16; TEMP 36.7; O2SAT 97
[2021-06-15 10:32] VITALS: BP 149/97; PULSE 83; RESP 16; O2SAT 96
[2021-06-15 10:37] VITALS: BP 153/90; PULSE 86; RESP 16; TEMP 37.1; O2SAT 97
--- NOTE | 2021-06-15 12:03 | OP_ITS ---
SURGEON: Remy Rodriguez MD PREOPERATIVE DIAGNOSIS: POSTOPERATIVE DIAGNOSIS: PROCEDURE PERFORMED: Colonoscopy to the terminal ileum with snare polypectomy and endoscopic clip placement for control of hemorrhage. ESTIMATED BLOOD LOSS: COMPLICATIONS: ANESTHESIA: ASSISTANTS: SPECIMENS: MEDICATIONS: Monitored anesthesia care. DESCRIPTION OF PROCEDURE: History and physical were performed. The risks and benefits of the procedure were explained to the patient. An informed consent was obtained. The patient was placed in the left lateral decubitus position. A digital rectal exam was performed and was found to be normal. The Olympus pediatric video colonoscope was introduced into the rectum and advanced to the cecum without difficulty. The cecum was identified by transillumination, palpation, and identification of ileocecal valve. Examination was performed. The scope was removed. He tolerated the procedure well and was sent to the recovery area in stable condition. FINDINGS: The terminal ileum was examined and appeared normal. The visualized colonic mucosa was normal. The quality of the prep was good. Multiple colonic polyps were identified and removed with a snare and recovered using suction and Hill Net. The procedure was extended and difficult due to the multiple colonic polyps requiring removal and reinsertion of the colonoscope on multiple occasions. In the right colon was a 15 mm polyp, which was snared and piecemeal suctioned after snaring. In the transverse colon were 7 polyps, 3 of which were greater than 10 mm, which was all snared and recovered with Hill net and suctioned. At 40 cm was a 15-20 mm polyp with a broad-base, which was snared. There was arterial bleeding from the polypectomy site, which was controlled with cautery using the tip of the snare and placement of 2 hemostatic endoscopic clips with excellent hemostasis at the termination of the procedure. The polyp was recovered with the colonoscope. A final polyp at 40 cm measuring less than 10 mm was snared, but could not be recovered because of technical reasons. Retroflexed examination showed moderate-sized internal hemorrhoids. IMPRESSION: Colon polyps. RECOMMENDATION: Follow up the biopsy results. MD WILFRIDO Laguerre/ZULEIKA / [id number]
== END 2021-06-15 11:39 | disposition home or self-care (01) ==
PROVIDERS: PCP Internal Medicine; Visit Provider Internal Medicine Gastroenterology
PROC: 0DJD8ZZ Inspection of Lower Intestinal Tract, Via Natural or Artificial Opening Endoscopic (ICD-10-PCS; CPT 45378; principal; 2021-06-15 09:00)
DX: Z12.11 Encounter for screening for malignant neoplasm of colon (principal); D12.2 Benign neoplasm of ascending colon; D12.3 Benign neoplasm of transverse colon; D12.5 Benign neoplasm of sigmoid colon; K64.8 Other hemorrhoids; K59.00 Constipation, unspecified; I10 Essential (primary) hypertension; E11.9 Type 2 diabetes mellitus without complications; N40.0 Benign prostatic hyperplasia without lower urinary tract symptoms; F20.9 Schizophrenia, unspecified; Z79.84 Long term (current) use of oral hypoglycemic drugs; Z79.899 Other long term (current) drug therapy
CPT/HCPCS: 45385; 82947; 88305; J2250

== ENCOUNTER 2021-07-07 15:07 | Outpatient (REF) | payer MEDICARE, MEDICAID, SELFPAY ==
[2021-07-07 15:22] LABS: MANUAL DIFF FLAG NO
[2021-07-07 15:27] LABS: Basophils Percent Auto 0.1 % (0-2); Hematocrit 40.3 % (42.0-52.0); Hemoglobin 12.7 g/dl (14.0-18.0); Imm Gran Abs Auto 0.02 X10*3/uL (0.00-0.03); Imm Gran Pct Auto 0.3 % (0.0-0.4); Lymphocytes Absolute Auto 1.4 X10*3/uL (1.2-4.9); Mean Corpuscular HGB Conc 31.5 g/dl (31.0-36.0); Mean Corpuscular Hemoglobin 28.2 pg (27.0-33.0); Mean Corpuscular Volume 89.6 fL (80.0-98.0); Mean Platelet Volume 11.3 fL (9.4-12.4); Monocytes Absolute Auto 0.6 X10*3/uL (0.1-1.2); Monocytes Percent Auto 7.8 % (2-11); Neutrophils Absolute Auto 5.9 x10*3/uL (2.0-8.3); Neutrophils Percent Auto 73.8 % (45-73); Platelet Count 155 X10*3/uL (160-400); Red Cell Distribution Width 13.2 % (11.0-16.0)
== END 2021-07-07 15:08 | disposition home or self-care (01) ==
LOC: HO.LABR 15:07
PROVIDERS: Visit Provider Clinical Nurse Specialist Psychiatric/Mental Health, Adult
DX: Z79.899 Other long term (current) drug therapy (principal)
CPT/HCPCS: 36415; 85025

== ENCOUNTER 2021-07-27 15:25 | Outpatient (REF) | payer MEDICARE, MEDICAID, SELFPAY ==
[2021-07-27 16:13] LABS: Basophils Percent Auto 0.1 % (0-2); Hematocrit 41.6 % (42.0-52.0); Hemoglobin 13.3 g/dl (14.0-18.0); Imm Gran Abs Auto 0.05 X10*3/uL (0.00-0.03); Imm Gran Pct Auto 0.7 % (0.0-0.4); Lymphocytes Absolute Auto 1.5 X10*3/uL (1.2-4.9); Lymphocytes Percent Auto 21.6 % (20-40); MANUAL DIFF FLAG NO; Mean Corpuscular Hemoglobin 28.7 pg (27.0-33.0); Mean Corpuscular Volume 89.8 fL (80.0-98.0); Mean Platelet Volume 11.2 fL (9.4-12.4); Monocytes Absolute Auto 0.6 X10*3/uL (0.1-1.2); Monocytes Percent Auto 8.7 % (2-11); Neut%MD 68.9 %; Neutrophils Absolute Auto 4.9 x10*3/uL (2.0-8.3); Neutrophils Percent Auto 68.9 % (45-73); Platelet Count 177 X10*3/uL (160-400); Red Blood Count 4.63 X10*6/uL (4.60-5.80); Red Cell Distribution Width 13.3 % (11.0-16.0); WBCANC 7.1 X10*3/uL; White Blood Count 7.1 X10*3/uL (4.8-10.8)
== END 2021-07-27 15:26 | disposition home or self-care (01) ==
LOC: HO.LABR 15:25
PROVIDERS: Visit Provider Clinical Nurse Specialist Psychiatric/Mental Health, Adult
DX: Z79.899 Other long term (current) drug therapy (principal)
CPT/HCPCS: 36415; 85025

== ENCOUNTER 2021-08-31 15:32 | Outpatient (REF) | payer MEDICARE, MEDICAID, SELFPAY ==
[2021-08-31 15:46] LABS: MANUAL DIFF FLAG NO
[2021-08-31 16:24] LABS: Hematocrit 40.8 % (42.0-52.0); Hemoglobin 12.8 g/dl (14.0-18.0); Imm Gran Abs Auto 0.05 X10*3/uL (0.00-0.03); Imm Gran Pct Auto 0.6 % (0.0-0.4); Lymphocytes Absolute Auto 1.4 X10*3/uL (1.2-4.9); Lymphocytes Percent Auto 17.1 % (20-40); Mean Corpuscular HGB Conc 31.4 g/dl (31.0-36.0); Mean Corpuscular Hemoglobin 27.9 pg (27.0-33.0); Mean Corpuscular Volume 88.9 fL (80.0-98.0); Mean Platelet Volume 10.9 fL (9.4-12.4); Monocytes Absolute Auto 0.6 X10*3/uL (0.1-1.2); Monocytes Percent Auto 7.6 % (2-11); Neutrophils Absolute Auto 6.3 x10*3/uL (2.0-8.3); Neutrophils Percent Auto 74.7 % (45-73); Platelet Count 172 X10*3/uL (160-400); Red Blood Count 4.59 X10*6/uL (4.60-5.80); White Blood Count 8.4 X10*3/uL (4.8-10.8)
== END 2021-08-31 15:33 | disposition home or self-care (01) ==
LOC: HO.LABR 15:32
PROVIDERS: Visit Provider Clinical Nurse Specialist Psychiatric/Mental Health, Adult
DX: Z79.899 Other long term (current) drug therapy (principal)
CPT/HCPCS: 36415; 85025

== ENCOUNTER 2021-09-29 11:06 | Outpatient (REF) | payer MEDICARE, MEDICAID, SELFPAY ==
[2021-09-29 11:29] LABS: MANUAL DIFF FLAG NO
[2021-09-29 11:47] LABS: Hematocrit 41.5 % (42.0-52.0); Hemoglobin 12.9 g/dl (14.0-18.0); Imm Gran Abs Auto 0.04 X10*3/uL (0.00-0.03); Imm Gran Pct Auto 0.6 % (0.0-0.4); Lymphocytes Absolute Auto 1.2 X10*3/uL (1.2-4.9); Lymphocytes Percent Auto 17.3 % (20-40); Mean Corpuscular HGB Conc 31.1 g/dl (31.0-36.0); Mean Corpuscular Hemoglobin 27.6 pg (27.0-33.0); Mean Corpuscular Volume 88.7 fL (80.0-98.0); Mean Platelet Volume 11.9 fL (9.4-12.4); Monocytes Absolute Auto 0.5 X10*3/uL (0.1-1.2); Monocytes Percent Auto 7.2 % (2-11); Neut%MD 74.9 %; Neutrophils Absolute Auto 5.3 x10*3/uL (2.0-8.3); Neutrophils Percent Auto 74.9 % (45-73); Platelet Count 151 X10*3/uL (160-400); Red Blood Count 4.68 X10*6/uL (4.60-5.80); Red Cell Distribution Width 13.2 % (11.0-16.0); WBCANC 7.1 X10*3/uL; White Blood Count 7.1 X10*3/uL (4.8-10.8)
== END 2021-09-29 11:07 | disposition home or self-care (01) ==
LOC: HO.LABR 11:06
PROVIDERS: Absent Provider Clinical Nurse Specialist Psychiatric/Mental Health, Adult; PCP Internal Medicine; Visit Provider Nurse Practitioner Family
DX: Z79.899 Other long term (current) drug therapy (principal)
CPT/HCPCS: 36415; 85025

== ENCOUNTER 2021-10-19 15:21 | Outpatient (REF) | payer MEDICARE, MEDICAID, SELFPAY ==
[2021-10-23 21:56] LABS: Clozapine (Clozaril) 458 mcg/L; Norclozapine 215 mcg/L (25-400)
== END 2021-10-19 15:22 | disposition home or self-care (01) ==
LOC: HO.LABR 15:21
PROVIDERS: Visit Provider Clinical Nurse Specialist Psychiatric/Mental Health, Adult
DX: Z79.899 Other long term (current) drug therapy (principal)
CPT/HCPCS: 36415; 80159; 80178

== ENCOUNTER 2021-11-15 14:33 | Outpatient (REF) | payer MEDICARE, MEDICAID, SELFPAY ==
[2021-11-15 14:48] LABS: MANUAL DIFF FLAG NO
[2021-11-15 15:16] LABS: Hematocrit 41.9 % (42.0-52.0); Hemoglobin 13.2 g/dl (14.0-18.0); Imm Gran Abs Auto 0.03 X10*3/uL (0.00-0.03); Imm Gran Pct Auto 0.4 % (0.0-0.4); Lymphocytes Absolute Auto 1.3 X10*3/uL (1.2-4.9); Lymphocytes Percent Auto 18.1 % (20-40); Mean Corpuscular HGB Conc 31.5 g/dl (31.0-36.0); Mean Corpuscular Hemoglobin 27.8 pg (27.0-33.0); Mean Corpuscular Volume 88.2 fL (80.0-98.0); Mean Platelet Volume 11.9 fL (9.4-12.4); Monocytes Absolute Auto 0.5 X10*3/uL (0.1-1.2); Monocytes Percent Auto 7.3 % (2-11); Neutrophils Absolute Auto 5.5 x10*3/uL (2.0-8.3); Neutrophils Percent Auto 74.2 % (45-73); Platelet Count 162 X10*3/uL (160-400); Red Blood Count 4.75 X10*6/uL (4.60-5.80); White Blood Count 7.4 X10*3/uL (4.8-10.8)
== END 2021-11-15 14:34 | disposition home or self-care (01) ==
LOC: HO.LABR 14:33
PROVIDERS: PCP Internal Medicine; Visit Provider Clinical Nurse Specialist Psychiatric/Mental Health, Adult
DX: Z79.899 Other long term (current) drug therapy (principal)
CPT/HCPCS: 36415; 85025

== ENCOUNTER 2021-11-30 15:50 | Outpatient (REF) | payer MEDICARE, MEDICAID, SELFPAY ==
[2021-11-30 16:22] LABS: MANUAL DIFF FLAG NO
[2021-11-30 16:51] LABS: Eosinophils Percent Auto 0.1 % (0-4); Hematocrit 39.8 % (42.0-52.0); Hemoglobin 12.3 g/dl (14.0-18.0); Imm Gran Abs Auto 0.03 X10*3/uL (0.00-0.03); Imm Gran Pct Auto 0.4 % (0.0-0.4); Lymphocytes Absolute Auto 1.5 X10*3/uL (1.2-4.9); Lymphocytes Percent Auto 20.5 % (20-40); Mean Corpuscular HGB Conc 30.9 g/dl (31.0-36.0); Mean Corpuscular Hemoglobin 27.7 pg (27.0-33.0); Mean Corpuscular Volume 89.6 fL (80.0-98.0); Mean Platelet Volume 11.5 fL (9.4-12.4); Monocytes Absolute Auto 0.6 X10*3/uL (0.1-1.2); Monocytes Percent Auto 8.4 % (2-11); Neutrophils Absolute Auto 5.2 x10*3/uL (2.0-8.3); Neutrophils Percent Auto 70.6 % (45-73); Platelet Count 172 X10*3/uL (160-400); Red Blood Count 4.44 X10*6/uL (4.60-5.80); Red Cell Distribution Width 13.3 % (11.0-16.0); White Blood Count 7.4 X10*3/uL (4.8-10.8)
== END 2021-11-30 15:51 | disposition home or self-care (01) ==
LOC: HO.LABR 15:50
PROVIDERS: PCP Internal Medicine; Visit Provider Clinical Nurse Specialist Psychiatric/Mental Health, Adult
DX: Z79.899 Other long term (current) drug therapy (principal)
CPT/HCPCS: 36415; 85025

== ENCOUNTER 2021-12-30 15:05 | Outpatient (REF) | payer MEDICARE, MEDICAID, SELFPAY ==
[2021-12-30 15:16] LABS: MANUAL DIFF FLAG NO
[2021-12-30 15:54] LABS: Basophils Percent Auto 0.1 % (0-2); Hematocrit 40.2 % (42.0-52.0); Hemoglobin 12.8 g/dl (14.0-18.0); Imm Gran Abs Auto 0.05 X10*3/uL (0.00-0.03); Imm Gran Pct Auto 0.6 % (0.0-0.4); Lymphocytes Absolute Auto 1.5 X10*3/uL (1.2-4.9); Lymphocytes Percent Auto 19.3 % (20-40); Mean Corpuscular HGB Conc 31.8 g/dl (31.0-36.0); Mean Corpuscular Hemoglobin 27.6 pg (27.0-33.0); Mean Corpuscular Volume 86.8 fL (80.0-98.0); Mean Platelet Volume 11.4 fL (9.4-12.4); Monocytes Absolute Auto 0.6 X10*3/uL (0.1-1.2); Monocytes Percent Auto 7.7 % (2-11); Neut%MD 72.3 %; Neutrophils Absolute Auto 5.7 x10*3/uL (2.0-8.3); Neutrophils Percent Auto 72.3 % (45-73); Platelet Count 175 X10*3/uL (160-400); Red Blood Count 4.63 X10*6/uL (4.60-5.80); Red Cell Distribution Width 13.2 % (11.0-16.0); WBCANC 7.8 X10*3/uL; White Blood Count 7.8 X10*3/uL (4.8-10.8)
== END 2021-12-30 15:06 | disposition home or self-care (01) ==
LOC: HO.LABR 15:05
PROVIDERS: PCP Internal Medicine; Visit Provider Clinical Nurse Specialist Psychiatric/Mental Health, Adult
DX: Z79.899 Other long term (current) drug therapy (principal)
CPT/HCPCS: 36415; 85025

== ENCOUNTER 2022-01-25 15:23 | Outpatient (REF) | payer MEDICARE, MEDICAID, SELFPAY ==
[2022-01-25 15:36] LABS: MANUAL DIFF FLAG NO
[2022-01-25 15:50] LABS: Hemoglobin 12.2 g/dl (14.0-18.0); Imm Gran Abs Auto 0.03 X10*3/uL (0.00-0.03); Imm Gran Pct Auto 0.5 % (0.0-0.4); Lymphocytes Absolute Auto 1.5 X10*3/uL (1.2-4.9); Lymphocytes Percent Auto 23.8 % (20-40); Mean Corpuscular HGB Conc 30.5 g/dl (31.0-36.0); Mean Corpuscular Hemoglobin 27.4 pg (27.0-33.0); Mean Corpuscular Volume 89.7 fL (80.0-98.0); Mean Platelet Volume 11.2 fL (9.4-12.4); Monocytes Absolute Auto 0.5 X10*3/uL (0.1-1.2); Monocytes Percent Auto 8.3 % (2-11); Neutrophils Absolute Auto 4.3 x10*3/uL (2.0-8.3); Neutrophils Percent Auto 67.4 % (45-73); Platelet Count 154 X10*3/uL (160-400); Red Blood Count 4.46 X10*6/uL (4.60-5.80); Red Cell Distribution Width 13.2 % (11.0-16.0); White Blood Count 6.4 X10*3/uL (4.8-10.8)
== END 2022-01-25 15:24 | disposition home or self-care (01) ==
LOC: HO.LABR 15:23
PROVIDERS: PCP Internal Medicine; Visit Provider Clinical Nurse Specialist Psychiatric/Mental Health, Adult
DX: Z79.899 Other long term (current) drug therapy (principal)
CPT/HCPCS: 36415; 85025

== ENCOUNTER 2022-02-28 09:39 | Outpatient (REF) | payer MEDICARE, MEDICAID, SELFPAY ==
[2022-02-28 09:52] LABS: MANUAL DIFF FLAG NO
[2022-02-28 10:52] LABS: Basophils Percent Auto 0.1 % (0-2); Hematocrit 42.3 % (42.0-52.0); Hemoglobin 13.2 g/dl (14.0-18.0); Imm Gran Abs Auto 0.04 X10*3/uL (0.00-0.03); Imm Gran Pct Auto 0.5 % (0.0-0.4); Lymphocytes Absolute Auto 1.6 X10*3/uL (1.2-4.9); Lymphocytes Percent Auto 21.8 % (20-40); Mean Corpuscular HGB Conc 31.2 g/dl (31.0-36.0); Mean Corpuscular Hemoglobin 28.3 pg (27.0-33.0); Mean Corpuscular Volume 90.8 fL (80.0-98.0); Monocytes Absolute Auto 0.6 X10*3/uL (0.1-1.2); Monocytes Percent Auto 7.6 % (2-11); Neutrophils Absolute Auto 5.1 x10*3/uL (2.0-8.3); Platelet Count 171 X10*3/uL (160-400); Red Blood Count 4.66 X10*6/uL (4.60-5.80); Red Cell Distribution Width 13.9 % (11.0-16.0); WBCANC 7.3 X10*3/uL; White Blood Count 7.3 X10*3/uL (4.8-10.8)
== END 2022-02-28 09:40 | disposition home or self-care (01) ==
LOC: HO.LABR 09:39
PROVIDERS: Visit Provider Clinical Nurse Specialist Psychiatric/Mental Health, Adult
DX: Z79.899 Other long term (current) drug therapy (principal)
CPT/HCPCS: 36415; 85025

== ENCOUNTER 2022-03-30 10:17 | Outpatient (REF) | payer MEDICARE, MEDICAID, SELFPAY ==
[2022-03-30 10:34] LABS: MANUAL DIFF FLAG NO
[2022-03-30 10:45] LABS: Hematocrit 40.9 % (42.0-52.0); Hemoglobin 12.7 g/dl (14.0-18.0); Imm Gran Abs Auto 0.05 X10*3/uL (0.00-0.03); Imm Gran Pct Auto 0.8 % (0.0-0.4); Lymphocytes Absolute Auto 1.4 X10*3/uL (1.2-4.9); Mean Corpuscular HGB Conc 31.1 g/dl (31.0-36.0); Mean Corpuscular Hemoglobin 28.3 pg (27.0-33.0); Mean Corpuscular Volume 91.3 fL (80.0-98.0); Mean Platelet Volume 10.4 fL (9.4-12.4); Monocytes Absolute Auto 0.5 X10*3/uL (0.1-1.2); Monocytes Percent Auto 7.1 % (2-11); Neutrophils Absolute Auto 4.7 x10*3/uL (2.0-8.3); Neutrophils Percent Auto 71.1 % (45-73); Platelet Count 155 X10*3/uL (160-400); Red Blood Count 4.48 X10*6/uL (4.60-5.80); Red Cell Distribution Width 13.8 % (11.0-16.0); White Blood Count 6.6 X10*3/uL (4.8-10.8)
== END 2022-03-30 10:18 | disposition home or self-care (01) ==
LOC: HO.LABR 10:17
PROVIDERS: Visit Provider Clinical Nurse Specialist Psychiatric/Mental Health, Adult
DX: Z79.899 Other long term (current) drug therapy (principal)
CPT/HCPCS: 36415; 85025

== ENCOUNTER 2022-04-27 11:25 | Outpatient (REF) | payer MEDICARE, MEDICAID, SELFPAY ==
[2022-04-27 11:36] LABS: MANUAL DIFF FLAG NO
[2022-04-27 11:55] LABS: Hematocrit 42.3 % (42.0-52.0); Hemoglobin 13.1 g/dl (14.0-18.0); Imm Gran Abs Auto 0.03 X10*3/uL (0.00-0.03); Imm Gran Pct Auto 0.4 % (0.0-0.4); Lymphocytes Absolute Auto 1.4 X10*3/uL (1.2-4.9); Lymphocytes Percent Auto 17.4 % (20-40); Mean Corpuscular Hemoglobin 28.4 pg (27.0-33.0); Mean Corpuscular Volume 91.8 fL (80.0-98.0); Mean Platelet Volume 10.8 fL (9.4-12.4); Monocytes Absolute Auto 0.5 X10*3/uL (0.1-1.2); Monocytes Percent Auto 6.4 % (2-11); Neutrophils Absolute Auto 6.2 x10*3/uL (2.0-8.3); Neutrophils Percent Auto 75.8 % (45-73); Platelet Count 157 X10*3/uL (160-400); Red Blood Count 4.61 X10*6/uL (4.60-5.80); Red Cell Distribution Width 13.3 % (11.0-16.0); White Blood Count 8.1 X10*3/uL (4.8-10.8)
== END 2022-04-27 11:26 | disposition home or self-care (01) ==
LOC: HO.LABR 11:25
PROVIDERS: Visit Provider Clinical Nurse Specialist Psychiatric/Mental Health, Adult
DX: Z79.899 Other long term (current) drug therapy (principal)
CPT/HCPCS: 36415; 85025

== ENCOUNTER 2022-05-30 13:42 | Outpatient (REF) | payer MEDICARE, MEDICAID, SELFPAY ==
[2022-05-30 13:59] LABS: MANUAL DIFF FLAG NO
[2022-05-30 14:42] LABS: Basophils Percent Auto 0.2 % (0-2); Hematocrit 39.8 % (42.0-52.0); Hemoglobin 12.5 g/dl (14.0-18.0); Imm Gran Abs Auto 0.03 X10*3/uL (0.00-0.03); Imm Gran Pct Auto 0.5 % (0.0-0.4); Lymphocytes Absolute Auto 1.3 X10*3/uL (1.2-4.9); Lymphocytes Percent Auto 20.8 % (20-40); Mean Corpuscular HGB Conc 31.4 g/dl (31.0-36.0); Mean Corpuscular Hemoglobin 28.5 pg (27.0-33.0); Mean Corpuscular Volume 90.9 fL (80.0-98.0); Mean Platelet Volume 12.3 fL (9.4-12.4); Monocytes Absolute Auto 0.3 X10*3/uL (0.1-1.2); Monocytes Percent Auto 4.5 % (2-11); Neutrophils Absolute Auto 4.6 x10*3/uL (2.0-8.3); Platelet Count 153 X10*3/uL (160-400); Red Blood Count 4.38 X10*6/uL (4.60-5.80); Red Cell Distribution Width 13.1 % (11.0-16.0); WBCANC 6.2 X10*3/uL; White Blood Count 6.2 X10*3/uL (4.8-10.8)
== END 2022-05-30 13:43 | disposition home or self-care (01) ==
LOC: HO.LAB 13:42
PROVIDERS: Visit Provider Clinical Nurse Specialist Psychiatric/Mental Health, Adult
DX: Z13.89 Encounter for screening for other disorder (principal)
CPT/HCPCS: 36415; 85025

== ENCOUNTER 2022-05-30 19:08 | Emergency (ER) | payer MEDICARE, MEDICAID, SELFPAY ==
--- NOTE | ~2022-05-30 | XR_ITS ---
EXAMINATION: XR FOOT, RIGHT CLINICAL INFORMATION: Pain. COMPARISON: None TECHNIQUE: AP, lateral, and oblique views of the right foot. FINDINGS: No acute fracture or dislocation. 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 There is a plantar calcaneal spur. There is a prominent posterior calcaneal spur at the insertion of the Achilles tendon with a 7 mm round coarse calcification at the insertion site in the Achilles tendon XR/XR foot RT min 3V IMPRESSION: 1. No acute abnormality. 2. Plantar calcaneal spur. 3. Prominent posterior calcaneal spur at the insertion site of the Achilles tendon.
[2022-05-30 19:29] VITALS: BP 112/60; BP 122/73; PULSE 74; PULSE 75; RESP 16; TEMP 36.4; O2SAT 98; BMI 32.3
--- NOTE | 2022-05-30 19:33 | ED_ITS ---
HPI - Extremity Injury (Lower) General Chief Complaint: Extremity Injury, Lower <ALEC Donald - Last Filed: 05/30/22 19:36> Stated Complaint: R FOOT PAIN X5 HRS,NO INJURY PER EMS <ALEC Donald - Last Filed: 05/30/22 19:36> Time Seen by Provider: 05/30/22 20:41 <ALEC Donald - Last Filed: 05/30/22 19:36> Source: patient <Derick Araujo MD - Last Filed: 05/30/22 21:57> Mode of arrival: ambulatory <Derick Araujo MD - Last Filed: 05/30/22 21:57> Limitations: no limitations <Derick Araujo MD - Last Filed: 05/30/22 21:57> History of Present Illness HPI Narrative: Patient with schizophrenia mentally challenged complaining of pain in the right foot heel area for the last 7 hours no injury no fever no skin color change patient able to ambulate complaining of diffuse pain in the heel area <Jd Araujo MD - Last Filed: 05/30/22 21:57> Related Data Home Medications: Home Medications Medication Instructions Recorded Confirmed clozapine 100 mg tablet mg PO 05/18/20 03/29/22 lithium carbonate 300 mg capsule mg PO 05/18/20 03/29/22 lorazepam 2 mg tablet mg PO 05/18/20 03/29/22 olanzapine 10 mg tablet mg PO 05/18/20 03/29/22 sertraline 100 mg tablet mg PO 05/18/20 03/29/22 Previous Rx's Medication Instructions Recorded metformin 500 mg tablet,extended 500 mg PO DAILY 90 days #90 tabs 12/28/21 release 24 hr ibuprofen 400 mg tablet 400 mg PO Q8H PRN pain #14 tabs 03/29/22 tamsulosin 0.4 mg capsule 0.4 mg PO DAILY #90 caps 04/28/22 blood sugar diagnostic (FreeStyle 1 strip miscellaneous DAILY #100 05/18/22 Lite Strips) strips lancets 28 gauge (FreeStyle #100 ea 05/18/22 Lancets) ibuprofen 600 mg tablet 600 mg PO Q6H PRN fever or pain 05/30/22 #30 tabs <ALEC Donald - Last Filed: 05/30/22 19:36> Allergies/Adverse Reactions: Allergies Allergy/AdvReac Type Severity Reaction Status Date / Time No Known Allergies [NKA] Allergy Unknown NONE Verified 04/14/22 14:20 <ALEC Donald - Last Filed: 05/30/22 19:36> Review of Systems Review of Systems: Yes all other systems are reviewed and are negative <Derick Araujo MD - Last Filed: 05/30/22 21:57> [facility] Past Medical History Medical History: Medical History BPH (benign prostatic hyperplasia) Diabetes mellitus Essential (primary) hypertension Schizophrenia, unspecified Screening for colon cancer Screening for prostate cancer <ALEC Donald - Last Filed: 05/30/22 19:36> Surgical History: Surgical History History of colonoscopy History of root canal procedure History of tooth extraction <ALEC Donald - Last Filed: 05/30/22 19:36> Family History Family History: Family History Mother Cancer Father Kidney agenesis <ALEC Donald - Last Filed: 05/30/22 19:36> Social History Social History: Social History Housing: Apartment Alcohol intake: never Patient Tobacco Use Status: Never used Tobacco e-Cigarette/Vaping Use: Never Used Second Hand Smoke Exposure: No Advance Directives: No Advance Directives Information Provided: No service: No Current occupational status: employed Cognitive needs: No Hearing needs: No Vision needs: No <ALEC Donald - Last Filed: 05/30/22 19:36> Physical Exam Vital Signs: Vital Signs: Last Vital Signs Temp 97.5 F 05/30/22 19:29 Pulse 75 05/30/22 19:29 Resp 16 05/30/22 19:29 BP 122/73 05/30/22 19:29 Pulse Ox 98 05/30/22 19:29 O2 Del Method 05/30/22 19:29 BMI result Body Mass Index 32.3 <ALEC Donald - Last Filed: 05/30/22 19:36> Vital Signs: Last Vital Signs Temp 97.5 F 05/30/22 19:29 Pulse 75 05/30/22 19:29 Resp 16 05/30/22 19:29 BP 122/73 05/30/22 19:29 Pulse Ox 98 05/30/22 19:29 O2 Del Method 05/30/22 19:29 BMI result Body Mass Index 32.3 <Derick Araujo MD - Last Filed: 05/30/22 21:57> Appearance: Alert. And awake. No acute distress. CVS: Normal heart rate and rhythm. Pulses normal. Respiratory: No respiratory distress. Equal air entry bilateral, Abdomen: Soft and nontender. Bowel sounds are present, no mass palpable, no CVA tenderness Skin: Skin warm and dry. Normal skin color. Normal skin turgor. Extremities: No lower extremity edema. No calf tenderness diffuse mild tenderness at calcaneum Neuro: Oriented and awake No motor deficit. <Derick Araujo MD - Last Filed: 05/30/22 21:57> Course Course Course Narrative: RME - 56 yo male with history of DM, HTN, schizophrenia, BPH who presents to the ER from home via EMS for evaluation of right foot pain that started earlier this afternoon. He noticed pain when trying to get up, he was unable to put all of his weight on his foot. Thinks he may have accidentally kicked a piece of furniture but no signs of trauma on exam. Seems lethargic with delayed responses in triage, unknown baseline. 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 if pain continues for further management <ALEC Donald - Last Filed: 05/30/22 19:36> Prescriptions: New ibuprofen 600 mg tablet 600 mg PO Q6H PRN (Reason: fever or pain) Qty: 30 0RF No Action tamsulosin 0.4 mg capsule 0.4 mg PO DAILY Qty: 90 0RF (DME) lancets [FreeStyle Lancets] 28 gauge misc See Rx Instructions .ROUTE .MEDSUPPLY Qty: 100 0RF Rx Instructions: test blood sugar once a day FreeStyle Lite Strips Strip 1 strip miscellaneous DAILY Qty: 100 1RF lorazepam 2 mg tablet PO olanzapine 10 mg tablet PO clozapine 100 mg tablet PO lithium carbonate 300 mg capsule PO sertraline 100 mg tablet PO metformin 500 mg tablet extended release 24 hr 500 mg PO DAILY 90 Days Qty: 90 1RF ibuprofen 400 mg tablet 400 mg PO Q8H PRN (Reason: pain) Qty: 14 0RF <ALEC Donald - Last Filed: 05/30/22 19:36>
[2022-05-30] MEDS: Ibuprofen 600 MG TABLET PO (22:09)
--- NOTE | 2022-05-30 22:33 | PC.NURSE ---
pt medicated per MAY, pt presented to dept via EMS, pt oob to without assistance. die out worker Helen, to book [facility] for pt. pt is in possession of his house keys and other belongings- dc'd to [facility]
== END 2022-05-30 22:36 | disposition home or self-care (01) ==
PROVIDERS: Emergency Provider Internal Medicine
DX: M77.31 Calcaneal spur, right foot (principal); M79.671 Pain in right foot; E11.9 Type 2 diabetes mellitus without complications; I10 Essential (primary) hypertension; Z79.899 Other long term (current) drug therapy; Z79.84 Long term (current) use of oral hypoglycemic drugs
CPT/HCPCS: 36415; 73630; 85025; 99283

== ENCOUNTER 2022-06-01 14:19 | Outpatient (REF) | payer MEDICARE, MEDICAID, SELFPAY ==
[2022-06-01 15:23] LABS: Lithium 0.39 mmol/L (0.60-1.20)
[2022-06-01 15:42] LABS: Anion Gap 14 (12-20); Carbon Dioxide 25 mmol/L (22-29); Chloride 108 mmol/L (96-108); Potassium 4.5 mmol/L (3.3-5.1); Sodium 142 mmol/L (135-145)
[2022-06-01 15:49] LABS: Blood Urea Nitrogen 18 mg/dL (9-16); Estimated Glomerular Filt Rate 52; Glucose Random 100 mg/dL (60-115); Thyroid Stimulating Hormone 0.32 uIU/mL (0.32-4.0)
== END 2022-06-01 14:20 | disposition home or self-care (01) ==
LOC: HO.LAB 14:19
PROVIDERS: Visit Provider Clinical Nurse Specialist Psychiatric/Mental Health, Adult
DX: Z79.899 Other long term (current) drug therapy (principal)
CPT/HCPCS: 36415; 80048; 80178; 84443

== ENCOUNTER 2022-06-11 18:19 | Inpatient (IN) | payer MEDICARE, MEDICAID, SELFPAY ==
--- NOTE | ~2022-06-11 | XR_ITS ---
EXAMINATION: XR ABDOMEN KUB CLINICAL INDICATION: Constipation COMPARISON: 06/26/2022 TECHNIQUE: AP view of the abdomen. FINDINGS: No significantly dilated loops of large or small bowel are evident. There is a large stool burden seen throughout the colon with no pneumatosis intestinalis identified. Psoas margins are intact. No destructive bony lesions identified. There is sacralization of L5 with facet arthropathy and disc space narrowing seen at the L4-L5 level. XR/XR KUB IMPRESSION: Large stool burden throughout the colon.
--- NOTE | ~2022-06-11 | XR_ITS ---
EXAMINATION: XR CHEST CLINICAL INFORMATION: Low oxygenation COMPARISON: 08/22/2019 TECHNIQUE: Frontal view of the chest was obtained. FINDINGS: Lungs are hypoinflated and right diaphragm elevated. Minimal linear opacity of discoid atelectasis in the left midlung zone. No airspace disease or pleural effusion. No pneumothorax. The evaluation of the inferior right lung is limited by the hypoinflation and diaphragm elevation. Cardiac silhouette is normal in size. The visualized bones are intact. XR/XR chest 1V IMPRESSION: * Lungs are hypoinflated and right diaphragm elevated. * No evidence of pneumonia or congestive heart failure.
--- NOTE | ~2022-06-11 | XR_ITS ---
EXAMINATION: XR ABDOMEN COMPLETE CLINICAL INDICATION: Reason for Exam unknown last bm, abd discomfort COMPARISON: KUB 12/28/2006 TECHNIQUE: AP view of the abdomen. FINDINGS: Lines or devices: None. Nonobstructive bowel gas pattern. Large colonic stool burden predominantly in the ascending colon and splenic flexure. Supine technique limits evaluation for extraluminal air although no secondary findings are appreciated. Calcified phleboliths in the pelvis. Bases are clear. XR/XR KUB IMPRESSION: 1. Nonobstructive bowel gas pattern with a large colonic stool burden predominantly in the ascending colon and splenic flexure.
--- NOTE | ~2022-06-11 | XR_ITS ---
EXAMINATION: XR ABDOMEN KUB CLINICAL INDICATION: Bowel obstruction COMPARISON: Abdomen 06/30/2022 TECHNIQUE: AP view of the abdomen. FINDINGS: No abnormally dilated bowel loops. Large volume of stool throughout the colon similar prior study. Bowel pattern change since prior study 06/30/2022. XR/XR abdomen 1V IMPRESSION: Large volume of stool in colon. Nonobstructive bowel pattern.
[2022-06-11 18:30] VITALS: BP 151/88; PULSE 90; RESP 15; TEMP 36.7; O2SAT 95; BMI 29.5
[2022-06-11 19:39] LABS: MANUAL DIFF FLAG NO
[2022-06-11 19:45] LABS: Basophils Percent Auto 0.1 % (0-2); Hematocrit 41.8 % (42.0-52.0); Hemoglobin 13.4 g/dl (14.0-18.0); Imm Gran Abs Auto 0.03 X10*3/uL (0.00-0.03); Imm Gran Pct Auto 0.4 % (0.0-0.4); Lymphocytes Absolute Auto 0.9 X10*3/uL (1.2-4.9); Lymphocytes Percent Auto 10.4 % (20-40); Mean Corpuscular HGB Conc 32.1 g/dl (31.0-36.0); Mean Corpuscular Hemoglobin 28.6 pg (27.0-33.0); Mean Corpuscular Volume 89.1 fL (80.0-98.0); Mean Platelet Volume 11.7 fL (9.4-12.4); Monocytes Absolute Auto 0.5 X10*3/uL (0.1-1.2); Monocytes Percent Auto 5.5 % (2-11); Neutrophils Absolute Auto 7.1 x10*3/uL (2.0-8.3); Neutrophils Percent Auto 83.6 % (45-73); Platelet Count 167 X10*3/uL (160-400); Red Blood Count 4.69 X10*6/uL (4.60-5.80); White Blood Count 8.5 X10*3/uL (4.8-10.8)
--- NOTE | 2022-06-11 19:46 | ED.GENADULT ---
HPI - General Adult General Chief complaint: Psychiatric Symptoms <Dewey Eddy - Last Filed: 06/11/22 19:57> Stated complaint: psych eval <Dewey Eddy - Last Filed: 06/11/22 19:57> Time Seen by Provider: 06/11/22 19:34 <Dewey Eddy - Last Filed: 06/11/22 19:57> Source: patient, RN notes reviewed and old records reviewed <Dewey Eddy - Last Filed: 06/11/22 19:57> Mode of arrival: ambulatory <Dewey Eddy - Last Filed: 06/11/22 19:57> Limitations: other (The patient is not speaking) <Dewey Eddy - Last Filed: 06/11/22 19:57> History of Present Illness HPI narrative: 56-year-old male presents for evaluation of behavioral change. Upon the patient was dropped off because he has not been speaking. It is unclear how long this has been going on. The patient apparently lives in an apartment and has a visiting nurse and should he is taking his medications. He is supposed to be on Clozaril as well as lithium The patient will not answer any questions to explain why he is here or if he has any concerns. Nursing staff spoke to the patient's father who is listed as the patient's caregiver. The patient's father reports that the patient has a history of presenting like this when he stops taking his medications <Dewey Eddy - Last Filed: 06/11/22 19:57> Related Data Home medications: Home Medications Medication Instructions Recorded Confirmed clozapine 100 mg tablet 250 mg PO BEDTIME 05/18/20 06/11/22 lithium carbonate 300 mg capsule 600 mg PO BEDTIME 05/18/20 06/11/22 lorazepam 2 mg tablet 1 tab PO TID PRN Anxiety 06/11/22 06/11/22 metformin 500 mg tablet,extended 1 tab PO DAILY 06/11/22 06/11/22 release 24 hr olanzapine 10 mg tablet 1 tab PO BEDTIME 06/11/22 06/11/22 sertraline 100 mg tablet 150 mg PO QAM 06/11/22 06/11/22 tamsulosin 0.4 mg capsule 1 cap PO DAILY 06/11/22 06/11/22 <Dewey Marleyy - Last Filed: 06/11/22 19:57> Allergies/adverse reactions: Allergies Allergy/AdvReac Type Severity Reaction Status Date / Time No Known Allergies [NKA] Allergy Unknown NONE Verified 04/14/22 14:20 <Dewey Marleyy - Last Filed: 06/11/22 19:57> Review of Systems Review of Systems: unable to obtain review of system <Deweydallas Marleyy - Last Filed: 06/11/22 19:57> [facility] Past Medical History Medical History: Medical History BPH (benign prostatic hyperplasia) Diabetes mellitus Essential (primary) hypertension Schizophrenia, unspecified Screening for colon cancer Screening for prostate cancer <Dewey OCalera - Last Filed: 06/11/22 19:57> Surgical History: Surgical History History of colonoscopy History of root canal procedure History of tooth extraction <Deweydallas Marleyy - Last Filed: 06/11/22 19:57> Family History Family History: Family History Mother Cancer Father Kidney agenesis <Deweydallas Marleyy - Last Filed: 06/11/22 19:57> Social History Social History: Social History Housing: Apartment Alcohol intake: never Patient Tobacco Use Status: Never used Tobacco e-Cigarette/Vaping Use: Never Used Second Hand Smoke Exposure: No Advance Directives: No Advance Directives Information Provided: Yes service: No Current occupational status: employed Cognitive needs: No Hearing needs: No Vision needs: No <Deweydallas Marley Last Filed: 06/11/22 19:57> Physical Exam ED Vital Signs: Vital Signs - 24 hr 06/11/22 18:30 06/12/22 06:42 06/12/22 10:08 Temperature 98.1 F 97.6 F 99.3 F Pulse Rate 90 70 71 Respiratory Rate 15 16 16 Blood Pressure 151/88 H 154/74 H 143/77 H Pulse Oximetry 95 95 95 Oxygen Delivery Method Room Air Room Air Room Air BMI result Body Mass Index 29.5 <Dewey LindsayFly - Last Filed: 06/11/22 19:57> Vital Signs - 24 hr 06/11/22 18:30 06/12/22 06:42 06/12/22 10:08 Temperature 98.1 F 97.6 F 99.3 F Pulse Rate 90 70 71 Respiratory Rate 15 16 16 Blood Pressure 151/88 H 154/74 H 143/77 H Pulse Oximetry 95 95 95 Oxygen Delivery Method Room Air Room Air Room Air BMI result Body Mass Index 29.5 <Sandoval Benson MD - Last Filed: 06/12/22 14:47> Const General: comfortable and no acute distress <Dewey OCalera - Last Filed: 06/11/22 19:57> HENMT Head: Yes normocephalic and Yes atraumatic <Dewey O - Last Filed: 06/11/22 19:57> Eyes Alignment and Position: alignment normal <Dewey O - Last Filed: 06/11/22 19:57> Periorbital: periorbital findings normal <Dewey O - Last Filed: 06/11/22 19:57> Eyelids: Yes eyelids normal <Dewey O - Last Filed: 06/11/22 19:57> Conjunctivae: conjunctivae normal <Dewey O - Last Filed: 06/11/22 19:57> Sclerae: sclerae normal <Dewey O - Last Filed: 06/11/22 19:57> Resp Effort & Inspection: normal respiratory effort <Dewey OCalera - Last Filed: 06/11/22 19:57> Auscultation: clear to auscultation bilaterally <Dewey O - Last Filed: 06/11/22 19:57> GI Inspection: No distended <Dewey O - Last Filed: 06/11/22 19:57> Palpation (GI): Soft to palpation and no guarding <Dewey LindsayCalera - Last Filed: 06/11/22 19:57> Neuro Other: Patient is ambulatory and able to move all extremities. <Dewey O - Last Filed: 06/11/22 19:57> General: no focal motor deficits <Dewey Eddy - Last Filed: 06/11/22 19:57> Psych Other: Patient presenting catatonic, he is staring off without responding to questioning. <Dewey Eddy - Last Filed: 06/11/22 19:57> Mental Status: mental status grossly abnormal <Dewey Eddy - Last Filed: 06/11/22 19:57> Speech and movement: Catatonic speech present <Dewey Eddy - Last Filed: 06/11/22 19:57> Affect: Blunted affect present <Dewey Eddy - Last Filed: 06/11/22 19:57> Attitude: cooperative <Dewey Eddy - Last Filed: 06/11/22 19:57> Course Reevaluation(s) Reevaluation #1: I was able to speak with the patient's father who presents to the ER to traumatic she has an answer any questions. The patient has been schizophrenic since he was a teenager. He has had several presentations with this in the past when he stops taking his medications described as catatonia. The patient's father states he has not had an episode and 5 or 6 years. He will try to get 1 the patient has CHD worker's she is supposed to be taking. <Dewey Eddy - Last Filed: 06/11/22 19:57> Time: 19:56 <Dewey Eddy - Last Filed: 06/11/22 19:57> Reevaluation #2: Under physician observation, stable vital signs, no issue reported by nurse overnight, was evaluated by care team and bed search is underway, continue with physician observation. <Sandoval Benson MD - Last Filed: 06/12/22 14:47> Time: 09:27 <Sandoval Benson MD - Last Filed: 06/12/22 14:47> Medications Administered Generic Name Dose Route Start Last Admin Trade Name Freq PRN Reason Stop Dose Admin [place] Carbonate 600 mg 06/11/22 21:00 06/11/22 20:50 [place] Carbonate 300 Mg Capsule PO 600 mg BEDTIME KRISTIN Administration Lorazepam 2 mg 06/11/22 20:28 06/12/22 10:03 Lorazepam 1 Mg Tablet PO 2 mg TID PRN Administration Anxiety Metformin HCl 500 mg 06/12/22 09:00 06/12/22 10:03 Metformin Hcl Er 500 Mg Tab.Er.24h PO 500 mg DAILY KRISTIN Administration Olanzapine 10 mg 06/11/22 21:00 06/11/22 20:50 Olanzapine 10 Mg Tablet PO 10 mg BEDTIME KRISTIN Administration Sertraline HCl 150 mg 06/12/22 09:00 06/12/22 10:03 Sertraline Hcl 50 Mg Tablet PO 150 mg DAILY KRISTIN Administration Tamsulosin HCl 0.4 mg 06/12/22 09:00 06/12/22 10:03 Tamsulosin Hcl 0.4 Mg Capsule PO 0.4 mg DAILY KRISTIN Administration Discontinued Medications Generic Name Dose Route Start Last Admin Trade Name Freq PRN Reason Stop Dose Admin Clozapine 25 mg 06/11/22 20:29 06/11/22 20:50 Clozapine 25 Mg Tablet PO 06/11/22 20:30 25 mg ONCE ONE Administration <Dewey Eddy - Last Filed: 06/11/22 19:57> Medications Administered Generic Name Dose Route Start Last Admin Trade Name Freq PRN Reason Stop Dose Admin [place] Carbonate 600 mg 06/11/22 21:00 06/11/22 20:50 [place] Carbonate 300 Mg Capsule PO 600 mg BEDTIME KRISTIN Administration Lorazepam 2 mg 06/11/22 20:28 06/12/22 10:03 Lorazepam 1 Mg Tablet PO 2 mg TID PRN Administration Anxiety Metformin HCl 500 mg 06/12/22 09:00 06/12/22 10:03 Metformin Hcl Er 500 Mg Tab.Er.24h PO 500 mg DAILY RKISTIN Administration Olanzapine 10 mg 06/11/22 21:00 06/11/22 20:50 Olanzapine 10 Mg Tablet PO 10 mg BEDTIME KRISTIN Administration Sertraline HCl 150 mg 06/12/22 09:00 06/12/22 10:03 Sertraline Hcl 50 Mg Tablet PO 150 mg DAILY KRISTIN Administration Tamsulosin HCl 0.4 mg 06/12/22 09:00 06/12/22 10:03 Tamsulosin Hcl 0.4 Mg Capsule PO 0.4 mg DAILY KRISTIN Administration Discontinued Medications Generic Name Dose Route Start Last Admin Trade Name Freq PRN Reason Stop Dose Admin Clozapine 25 mg 06/11/22 20:29 06/11/22 20:50 Clozapine 25 Mg Tablet PO 06/11/22 20:30 25 mg ONCE ONE Administration <Sandoval Benson MD - Last Filed: 06/12/22 14:47> Medical Decision Making Medical Decision Making MDM Narrative: 56-year-old male with a history of hypertension, diabetes, schizophrenia presenting for evaluation of behavioral change. The patient has apparently been nonverbal but it is unclear how long. Apparently the patient has a history of presenting this way when he is noncompliant with medications. I do not have a lot of previous records <Dewey Eddy - Last Filed: 06/11/22 19:57> Differential Diagnosis Line schizophrenia Bipolar disorder Catatonia Metabolic encephalopathy CVA <Dewey Eddy - Last Filed: 06/11/22 19:57> Lab Data Result Diagrams: 06/11/22 19:32 06/11/22 19:32 <Dewey Eddy - Last Filed: 06/11/22 19:57> Labs: Lab Results 06/11/22 06/11/22 06/11/22 Range/Units 19:32 19:32 19:32 WBC 8.5 (4.8-10.8) X10*3/uL RBC 4.69 (4.60-5.80) X10*6/uL Hgb 13.4 L (14.0-18.0) g/dl Hct 41.8 L (42.0-52.0) % MCV 89.1 (80.0-98.0) fL MCH 28.6 (27.0-33.0) pg MCHC 32.1 (31.0-36.0) g/dl RDW 13.0 (11.0-16.0) % Plt Count 167 (160-400) X10*3/uL MPV 11.7 (9.4-12.4) fL Immature Gran % (Auto) 0.4 (0.0-0.4) % Neut % (Auto) 83.6 H (45-73) % Lymph % (Auto) 10.4 L (20-40) % [place] % (Auto) 5.5 (2-11) % Eos % (Auto) 0.0 (0-4) % Baso % (Auto) 0.1 (0-2) % Lymph # (Auto) 0.9 L (1.2-4.9) X10*3/uL [place] # (Auto) 0.5 (0.1-1.2) X10*3/uL Eos # (Auto) 0.0 (0.0-0.4) X10*3/uL Baso # (Auto) 0.0 (0.0-0.2) X10*3/uL Abs Immat Gran (auto) 0.03 (0.00-0.03) X10*3/uL Absolute Neuts (auto) 7.1 (2.0-8.3) x10*3/uL Absolute Nucleated RBC 0.000 (0.0-0.012) X10*3/uL Nucleated RBC % (auto) 0.0 (0.0-0.2) /100WBC Sodium 142 (135-145) mmol/L Potassium 4.6 (3.3-5.1) mmol/L Chloride 107 (96-108) mmol/L Carbon Dioxide 23 (22-29) mmol/L Anion Gap 17 (12-20) BUN 13 (9-16) mg/dL Creatinine 1.20 (0.5-1.4) mg/dL Estim Creat Clear Calc 74.6 Estimated GFR > 60 Random Glucose 97 (60-115) mg/dL Calcium 9.2 D (8.4-10.2) mg/dL Total Bilirubin 0.7 (0.0-1.0) mg/dL AST 10 (5-37) U/L ALT 9 (0-40) U/L Alkaline Phosphatase 54 (39-117) U/L Total Protein 6.7 (6.5-8.0) g/dL Albumin 4.3 (3.5-5.0) g/dL [place] (0.60-1.20) mmol/L Ethyl Alcohol < 10 mg/dL COVID-19 ([facility]AKA) Negative (Negative) COVID-19 Clin Com See Note 06/11/22 Range/Units 19:32 WBC (4.8-10.8) X10*3/uL RBC (4.60-5.80) X10*6/uL Hgb (14.0-18.0) g/dl Hct (42.0-52.0) % MCV (80.0-98.0) fL MCH (27.0-33.0) pg MCHC (31.0-36.0) g/dl RDW (11.0-16.0) % Plt Count (160-400) X10*3/uL MPV (9.4-12.4) fL Immature Gran % (Auto) (0.0-0.4) % Neut % (Auto) (45-73) % Lymph % (Auto) (20-40) % [place] % (Auto) (2-11) % Eos % (Auto) (0-4) % Baso % (Auto) (0-2) % Lymph # (Auto) (1.2-4.9) X10*3/uL [place] # (Auto) (0.1-1.2) X10*3/uL Eos # (Auto) (0.0-0.4) X10*3/uL Baso # (Auto) (0.0-0.2) X10*3/uL Abs Immat Gran (auto) (0.00-0.03) X10*3/uL Absolute Neuts (auto) (2.0-8.3) x10*3/uL Absolute Nucleated RBC (0.0-0.012) X10*3/uL Nucleated RBC % (auto) (0.0-0.2) /100WBC Sodium (135-145) mmol/L Potassium (3.3-5.1) mmol/L Chloride (96-108) mmol/L Carbon Dioxide (22-29) mmol/L Anion Gap (12-20) BUN (9-16) mg/dL Creatinine (0.5-1.4) mg/dL Estim Creat Clear Calc Estimated GFR Random Glucose (60-115) mg/dL Calcium (8.4-10.2) mg/dL Total Bilirubin (0.0-1.0) mg/dL AST (5-37) U/L ALT (0-40) U/L Alkaline Phosphatase (39-117) U/L Total Protein (6.5-8.0) g/dL Albumin (3.5-5.0) g/dL [place] 0.50 L (0.60-1.20) mmol/L Ethyl Alcohol mg/dL COVID-19 ([facility]AKA) (Negative) COVID-19 Clin Com <Dewey O'Calera - Last Filed: 06/11/22 19:57> Lab Results 06/11/22 06/11/22 06/11/22 Range/Units 19:32 19:32 19:32 WBC 8.5 (4.8-10.8) X10*3/uL RBC 4.69 (4.60-5.80) X10*6/uL Hgb 13.4 L (14.0-18.0) g/dl Hct 41.8 L (42.0-52.0) % MCV 89.1 (80.0-98.0) fL MCH 28.6 (27.0-33.0) pg MCHC 32.1 (31.0-36.0) g/dl RDW 13.0 (11.0-16.0) % Plt Count 167 (160-400) X10*3/uL MPV 11.7 (9.4-12.4) fL Immature Gran % (Auto) 0.4 (0.0-0.4) % Neut % (Auto) 83.6 H (45-73) % Lymph % (Auto) 10.4 L (20-40) % [place] % (Auto) 5.5 (2-11) % Eos % (Auto) 0.0 (0-4) % Baso % (Auto) 0.1 (0-2) % Lymph # (Auto) 0.9 L (1.2-4.9) X10*3/uL [place] # (Auto) 0.5 (0.1-1.2) X10*3/uL Eos # (Auto) 0.0 (0.0-0.4) X10*3/uL Baso # (Auto) 0.0 (0.0-0.2) X10*3/uL Abs Immat Gran (auto) 0.03 (0.00-0.03) X10*3/uL Absolute Neuts (auto) 7.1 (2.0-8.3) x10*3/uL Absolute Nucleated RBC 0.000 (0.0-0.012) X10*3/uL Nucleated RBC % (auto) 0.0 (0.0-0.2) /100WBC Sodium 142 (135-145) mmol/L Potassium 4.6 (3.3-5.1) mmol/L Chloride 107 (96-108) mmol/L Carbon Dioxide 23 (22-29) mmol/L Anion Gap 17 (12-20) BUN 13 (9-16) mg/dL Creatinine 1.20 (0.5-1.4) mg/dL Estim Creat Clear Calc 74.6 Estimated GFR > 60 Random Glucose 97 (60-115) mg/dL Calcium 9.2 D (8.4-10.2) mg/dL Total Bilirubin 0.7 (0.0-1.0) mg/dL AST 10 (5-37) U/L ALT 9 (0-40) U/L Alkaline Phosphatase 54 (39-117) U/L Total Protein 6.7 (6.5-8.0) g/dL Albumin 4.3 (3.5-5.0) g/dL [place] (0.60-1.20) mmol/L Ethyl Alcohol < 10 mg/dL COVID-19 ([facility]AKA) Negative (Negative) COVID-19 Clin Com See Note 06/11/22 Range/Units 19:32 WBC (4.8-10.8) X10*3/uL RBC (4.60-5.80) X10*6/uL Hgb (14.0-18.0) g/dl Hct (42.0-52.0) % MCV (80.0-98.0) fL MCH (27.0-33.0) pg MCHC (31.0-36.0) g/dl RDW (11.0-16.0) % Plt Count (160-400) X10*3/uL MPV (9.4-12.4) fL Immature Gran % (Auto) (0.0-0.4) % Neut % (Auto) (45-73) % Lymph % (Auto) (20-40) % [place] % (Auto) (2-11) % Eos % (Auto) (0-4) % Baso % (Auto) (0-2) % Lymph # (Auto) (1.2-4.9) X10*3/uL [place] # (Auto) (0.1-1.2) X10*3/uL Eos # (Auto) (0.0-0.4) X10*3/uL Baso # (Auto) (0.0-0.2) X10*3/uL Abs Immat Gran (auto) (0.00-0.03) X10*3/uL Absolute Neuts (auto) (2.0-8.3) x10*3/uL Absolute Nucleated RBC (0.0-0.012) X10*3/uL Nucleated RBC % (auto) (0.0-0.2) /100WBC Sodium (135-145) mmol/L Potassium (3.3-5.1) mmol/L Chloride (96-108) mmol/L Carbon Dioxide (22-29) mmol/L Anion Gap (12-20) BUN (9-16) mg/dL Creatinine (0.5-1.4) mg/dL Estim Creat Clear Calc Estimated GFR Random Glucose (60-115) mg/dL Calcium (8.4-10.2) mg/dL Total Bilirubin (0.0-1.0) mg/dL AST (5-37) U/L ALT (0-40) U/L Alkaline Phosphatase (39-117) U/L Total Protein (6.5-8.0) g/dL Albumin (3.5-5.0) g/dL [place] 0.50 L (0.60-1.20) mmol/L Ethyl Alcohol mg/dL COVID-19 ([facility]AK[facility]) (Negative) COVID-19 Clin Com <Sandoval Benson MD - Last Filed: 06/12/22 14:47> Discharge Plan Discharge Clinical Impression: Schizophrenia, unspecified <Dewey Eddy - Last Filed: 06/11/22 19:57> Patient Disposition: Still a Patient <Dewey Eddy - Last Filed: 06/11/22 19:57> Prescriptions: No Action lorazepam 2 mg tablet 1 tab PO TID PRN (Reason: Anxiety) sertraline 100 mg tablet 150 mg PO QAM olanzapine 10 mg tablet 1 tab PO BEDTIME metformin 500 mg tablet extended release 24 hr 1 tab PO DAILY tamsulosin 0.4 mg capsule 1 cap PO DAILY clozapine 100 mg tablet 250 mg PO BEDTIME lithium carbonate 300 mg capsule 600 mg PO BEDTIME <Dewey Eddy - Last Filed: 06/11/22 19:57> Interventions: Elizabeth-Suicide Risk Severity Scale Last Done: 06/12/22 06:34 <Dewey Eddy - Last Filed: 06/11/22 19:57>
[2022-06-11 20:22] LABS: Alanine Aminotransferase 9 U/L (0-40); Albumin Level 4.3 g/dL (3.5-5.0); Alkaline Phosphatase 54 U/L (39-117); Anion Gap 17 (12-20); Aspartate Amino Transferase 10 U/L (5-37); Bilirubin Total 0.7 mg/dL (0.0-1.0); Blood Urea Nitrogen 13 mg/dL (9-16); Calcium 9.2 mg/dL (8.4-10.2); Carbon Dioxide 23 mmol/L (22-29); Chloride 107 mmol/L (96-108); Creatinine Clr Calc Pharmacy 74.6; Estimated Glomerular Filt Rate > 60; Ethanol < 10 mg/dL; Glucose Random 97 mg/dL (60-115); Potassium 4.6 mmol/L (3.3-5.1); Sodium 142 mmol/L (135-145); Total Protein 6.7 g/dL (6.5-8.0)
[2022-06-11 20:25] LABS: COVID-19 Test Negative (Negative); IDNOW Serial# 55D5AD1C
[2022-06-11] MEDS: cloZAPine 25 MG TABLET PO (20:50)
[2022-06-11] MEDS: OLANZapine 10 MG TABLET PO (20:50)
[2022-06-11] MEDS: Lithium Carbonate 300 MG CAPSULE 600 MG PO (20:50)
--- NOTE | 2022-06-11 20:58 | PC.NURSE ---
Patient is in bed appears resting, tremulous, hypo to non verbal at this time, father and CHD called to obtain home medication list, med list received from [facility] via fax/med rec completed/approved by the provider/medication compliant, no distress reported at this time, care consult ordered, pending urine sample for FIELD, will continue to monitor
--- NOTE | 2022-06-12 06:35 | PC.NURSE ---
Patient slept through the night, no distress observed/reported, medication compliant, labs completed, pending urine sample, behavior non concerning, pending care team assessment, VSS, will continue to monitor
[2022-06-12 06:42] VITALS: BP 154/74; PULSE 70; RESP 16; TEMP 36.4; O2SAT 95
--- NOTE | 2022-06-12 09:24 | MHC.CARE ---
Pt seen by [facility] in community and is a psych bedsearch, he is voluntary for inpatient level of care.
[2022-06-12] MEDS: metFORMIN HCl ER 500 MG TAB.ER.24H PO (10:03)
[2022-06-12] MEDS: Sertraline HCL 50 MG TABLET 150 MG PO (10:03)
[2022-06-12] MEDS: LORazepam 1 MG TABLET 2 MG PO (10:03)
[2022-06-12] MEDS: Tamsulosin HCL 0.4 MG CAPSULE PO (10:03)
[2022-06-12 10:08] VITALS: BP 143/77; PULSE 71; RESP 16; TEMP 37.4; O2SAT 95
--- NOTE | 2022-06-12 13:25 | PC.NURSE ---
Pt continues to be resting in bed, pt not responding to questions. Pt took all of morning medications, offers no complaints. Resp even and unlabored, vss.
--- NOTE | 2022-06-12 16:35 | MHC.CARE ---
Dulce from [facility] came to [facility] ED [facility]OD to complete an MSU on the pt. Dulce stated that the pt is still non verbal and his mouth tremors when he tries to speak. Dulce asked the pt to raise a hand in response to yes/no questions. Pt was able to relay to Dulce that he is hearing voices but not seeing anything. Pt was able to deny SI/HI to Dulce. Pt also was able to reply that he did not know why he was here. Dulce stated that he is sleeping but not eating. Pt has been med compliant while here. Dulce stated that she would inform the MD and the RN that the pt is still a bed search.
[2022-06-12] MEDS: OLANZapine 10 MG TABLET PO (21:47)
[2022-06-12] MEDS: Lithium Carbonate 300 MG CAPSULE 600 MG PO (21:47)
--- NOTE | 2022-06-13 | ECG_ITS ---
Test Reason : PSYCH MEDS Blood Pressure : / mmHG Vent. Rate : 074 BPM Atrial Rate : 074 BPM P-R Int : 148 ms QRS Dur : 082 ms QT Int : 352 ms P-R-T Axes : 072 031 058 degrees QTc Int : 390 ms Normal sinus rhythm Nonspecific T wave abnormality Abnormal ECG When compared with ECG of 18-MAY-2016 11:51, Nonspecific T wave abnormality now evident in Lateral leads Referred By: Zan Hogue Electronically Signed By:AUGUSTO RAYMUNDO MD
--- NOTE | 2022-06-13 07:03 | PC.NURSE ---
assumed care of patient, pt resting comfortably bed, VSS, sec [address], bed search in progress
[2022-06-13 07:04] VITALS: BP 137/80; PULSE 71; RESP 16; TEMP 36.4; O2SAT 93
[2022-06-13] MEDS: Tamsulosin HCL 0.4 MG CAPSULE PO (07:50)
[2022-06-13] MEDS: metFORMIN HCl ER 500 MG TAB.ER.24H PO (07:50)
[2022-06-13] MEDS: Sertraline HCL 50 MG TABLET 150 MG PO (07:50)
[2022-06-13] MEDS: LORazepam 1 MG TABLET 2 MG PO (16:22)
--- NOTE | 2022-06-13 16:23 | PC.NURSE ---
pt helped with urinal, UA sent, given fresh sheets and PRN ativan
[2022-06-13 16:38] LABS: Appearance Urine Clear; Color Urine Yellow; Glucose Urine UA Negative (Negative); Leukocyte Esterase Urine Trace (Negative); Nitrite Urine Negative (Negative); PH 6.5 (5.0-9.0); UMIC TRIGGER UA YES; Urine Blood Negative (Negative); Urine Ketones 40 mg/dL (Negative); Urine Protein Trace mg/dL (Neg-Trace)
[2022-06-13 16:42] LABS: Bacteria Urine None Seen (None Seen); Hyaline Casts Urine 0-2 /LPF (0-2); Squamous Epithelial Cell Urine 0-2 /HPF (0-2); WBC Urine 0-5 /HPF (0-5)
[2022-06-13 16:52] LABS: Amphetamine Screen Urine Not Detected (Not Detect); Barbiturates, Urine Not Detected (Not Detect); Benzodiazepines Screen Urine Not Detected (Not Detect); Cannabinoid Screen Urine Not Detected (Not Detect); Cocaine Screen Urine Not Detected (Not Detect); Fentanyl, urine Not Detected (Not Detect); Opiate Screen Urine Not Detected (Not Detect); Phencyclidine Screen Urine Not Detected (Not Detect)
[2022-06-13 21:29] VITALS: BP 149/98; PULSE 81; RESP 20; TEMP 37.2; O2SAT 95
[2022-06-13] MEDS: OLANZapine 10 MG TABLET PO (21:30)
[2022-06-13] MEDS: cloZAPine 25 MG TABLET PO (21:30)
[2022-06-13] MEDS: Lithium Carbonate 300 MG CAPSULE 600 MG PO (21:30)
[2022-06-14 00:17] VITALS: BP 146/90; PULSE 113; RESP 18; TEMP 36.1; O2SAT 97
--- NOTE | 2022-06-14 02:12 | PC.ADMIT ---
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 Per the crisis report the patient has not taken medications since 06/09/22 and has been experiencing worsening psychiatric symptoms. Patient is slow to respond with poor concentration, poor eye contact and appears to be thought blocked. He denies auditory/visual hallucinations however, per the crisis report the patient has been experiencing command auditory hallucinations telling him not to take his medications. The patient lives in his own apartment and has CHD and VNA services. the patient denies depression ands anxiety, as well as suicidal/homicidal ideation. patient is oriented X'3 and per patient he is independent with ADL's however, when patient arrived to the floor he stated that he needed to urinate but was unable to make it to the bathroom and urinated in his pants. When this job specification writer asked if he uses adult briefs he responded by saying that he use[s] grab bars in the bathroom . Patient was unable to remember the names of his PCP, Therapist or Psychiatrist. patient fully admitted, treatment plan initiated, monitor for safety
[2022-06-14 08:10] VITALS: BP 148/92; PULSE 104; RESP 18; TEMP 36.6; O2SAT 99
[2022-06-14 09:09] LABS: Cholesterol 125 mg/dL; HDL Cholesterol 28 mg/dL; LDL Cholesterol Calculated 75 mg/dl; Triglycerides 112 mg/dL
[2022-06-14 09:12] LABS: Estimated Average Glucose 103 mg/dL; Hemoglobin A1c % 5.2 %
[2022-06-14] MEDS: Tamsulosin HCL 0.4 MG CAPSULE PO (09:26)
[2022-06-14] MEDS: metFORMIN HCl ER 500 MG TAB.ER.24H PO (09:26)
[2022-06-14] MEDS: LORazepam 1 MG TABLET 2 MG PO ×3 (09:26→20:30)
--- NOTE | 2022-06-14 09:38 | HO.PSYADMNOT ---
HPI Date of Service: 06/14/22 Chief Complaint: psychosis Sources of Information: patient interviewed, chart reviewed and crisis/core team assessment reviewed HPI Subjective Notes: [place] Warning (given and shows understanding) and Conditional Voluntary Narrative: Mr. Tenorio is a 56 year-old male with hx of schizophrenia. Pt was brought via EMS after [facility] worker contacted crisis as pt presenting as confused, not talking, staring, which is not his usual. Per [facility] worker, pt was started on ibuprofen about 2 weeks ago and after had change in mentation. He is also on lithium therefore there was concern of lithium toxicity with combination of medication. Pt apparently had stopped some medications prior to being brought to [facility], which appears to be more result of confusion/AMS as this is also not his usual. On the unit, pt presents with black stare, delayed response rate. He did brighten up more after ativan 2mg po. He has ativan 2mg po TID for several years. He denies SI/HI. He denies VH/AH. He was more visible in the afternoon and attended some groups. No behavioral concerns. Past Psychiatric History: Inpatient: multiple in the past. OP: [facility] Past medication trials: clozaril, ativan, sertraline, olanzapine. Medical Evaluation Reviewed: Yes [facility] Medical History BPH (benign prostatic hyperplasia) Diabetes mellitus Essential (primary) hypertension Schizophrenia, unspecified Screening for colon cancer Screening for prostate cancer Surgical History History of colonoscopy History of root canal procedure History of tooth extraction Diagnostics Vital Signs (24Hr): Vital Signs - 24 hr 06/13/22 21:29 06/14/22 00:17 Temperature 98.9 F 97.0 F Pulse Rate 81 113 H Respiratory Rate 20 18 Blood Pressure 149/98 H 146/90 H Pulse Oximetry 95 97 Oxygen Delivery Method Room Air Room Air BMI result Body Mass Index 29.5 Labs 06/11/22 19:32 06/11/22 19:32 Labs: Laboratory Results - last 48 hr 06/13/22 06/13/22 06/14/22 16:23 16:23 08:35 Estimat Average Glucose 103 Hemoglobin A1c % 5.2 Triglycerides Cholesterol LDL Cholesterol, Calc HDL Cholesterol Urine Color Yellow Urine Appearance Clear Urine pH 6.5 Ur Specific [place] 1.020 Urine Protein Trace Urine Glucose (UA) Negative Urine Ketones 40 Urine Blood Negative Urine Nitrite Negative Ur Leukocyte Esterase Trace H Urine RBC 3-5 H Urine WBC 0-5 Ur Squamous Epith Cells 0-2 Urine Bacteria None Seen Hyaline Casts 0-2 Urine Opiates Screen Not Detected Urine Fentanyl Screen Not Detected Ur Barbiturates Screen Not Detected Ur Phencyclidine Scrn Not Detected Ur Amphetamines Screen Not Detected U Benzodiazepines Scrn Not Detected Urine Cocaine Screen Not Detected U Marijuana (THC) Screen Not Detected 06/14/22 08:35 Estimat Average Glucose Hemoglobin A1c % Triglycerides 112 Cholesterol 125 LDL Cholesterol, Calc 75 HDL Cholesterol 28 Urine Color Urine Appearance Urine pH Ur Specific [place] Urine Protein Urine Glucose (UA) Urine Ketones Urine Blood Urine Nitrite Ur Leukocyte Esterase Urine RBC Urine WBC Ur Squamous Epith Cells Urine Bacteria Hyaline Casts Urine Opiates Screen Urine Fentanyl Screen Ur Barbiturates Screen Ur Phencyclidine Scrn Ur Amphetamines Screen U Benzodiazepines Scrn Urine Cocaine Screen U Marijuana (THC) Screen Meds/Allergies Meds Home Medications Medication Instructions Recorded Confirmed Type clozapine 100 mg tablet 250 mg PO BEDTIME 05/18/20 06/11/22 History lithium carbonate 300 mg capsule 600 mg PO BEDTIME 05/18/20 06/11/22 History lorazepam 2 mg tablet 1 tab PO TID PRN Anxiety 06/11/22 06/11/22 History metformin 500 mg tablet,extended 1 tab PO DAILY 06/11/22 06/11/22 History release 24 hr olanzapine 10 mg tablet 1 tab PO BEDTIME 06/11/22 06/11/22 History sertraline 100 mg tablet 150 mg PO QAM 06/11/22 06/11/22 History tamsulosin 0.4 mg capsule 1 cap PO DAILY 06/11/22 06/11/22 History Allergies Allergies Allergy/AdvReac Type Severity Reaction Status Date / Time No Known Allergies [NKA] Allergy Unknown NONE Verified 04/14/22 14:20 Mental Status Exam Mental Status Exam Narrative: Appearance: wearing hospital gown, poor eye contact, in NAD Behavior: cooperative Psychomotor: retardation noted Speech: clear, with significant delayed in response, minimally spontaneous TP: single word answer TC: no overt psychosis, feeling off Mood: better Affect: constricted SI: denies HI: denies VH/AH: denies, ? thought blocking Delusions: no overt delusional content noted or reported. Insight/judgment: fair x 2. Memory/cog: alert, oriented x 3. Assessment & Plan Assessment & Plan (1) Schizophrenia, catatonic: Status: Acute Code(s): 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 Tenorio is a 56 year-old male with hx of schizophrenia, stable for some years until he had declined in past 2-3 week. His [facility] shelter case manager contacted crisis as pt not verbal, appeared confused, not his baseline. Pt did start ibuprofen recently and in combination with lithium concern was potential lithium toxicity. [facility] provider noted jerk like movements which are not baseline. He did missed few doses prior to coming to the hospital. In the ED, lithium not toxic levels. However, it does seem some degree of underlying kidney disease with decrease creatinine clearance. Pt with s/s of catatonia including mutism, staring at wall, did improve once given ativan 2mg. He is on ativan 2mg po TID at home for years but may have missed some doses and in the ED ativan was ordered as PRN. Pt on clozaril but was restarted at 25mg po qhs given reports of pt missing more than 2 doses. He is currently on 50mg po qhs and will increase daily by 25mg. PLAN 1. Admit to M3, cv 15 minutes checks. 2. continue current medications. continue titration of clozaril 50mg po qhs today, 75mg po qhs tomorrow. 3. obtain collateral information 4. Aftercare planning Patient educated on: diagnosis Reason for continued inpatient stay Substantial Risk for: inability to function Statement Statement: I have reviewed the history and physical and performed a pertinent examination on my patient. No changes have occurred unless specified. If the History and Physical was not performed prior to admission, the Hospitalist's service will be consulted for completing the admission physical. Time Spent With Patient Time: Total time managing care of this patient today ____ minutes.
[2022-06-14] MEDS: Sertraline HCL 50 MG TABLET 150 MG PO (12:28)
[2022-06-14 14:11] LABS: Glucose, Whole Blood 120 mg/dL (60-115)
[2022-06-14] MEDS: guaiFENesin 200 MG/10 ML 10 ML LIQUID PO ×2 (17:56→20:34)
--- NOTE | 2022-06-14 18:27 | PC.NURSE ---
Benjamin reportes having gotten his flu shot at his pharmacy prior to 2021
[2022-06-14 20:14] VITALS: BP 128/73; PULSE 81; RESP 18; TEMP 36.6; O2SAT 99
[2022-06-14] MEDS: cloZAPine 25 MG TABLET 50 MG PO (20:30)
[2022-06-14] MEDS: OLANZapine 10 MG TABLET PO (20:30)
[2022-06-14] MEDS: Lithium Carbonate 300 MG CAPSULE 600 MG PO (20:30)
[2022-06-15 08:15] VITALS: BP 134/72; PULSE 66; RESP 18; TEMP 36.6; O2SAT 96
[2022-06-15 08:17] LABS: Glucose, Whole Blood 112 mg/dL (60-115)
[2022-06-15] MEDS: LORazepam 1 MG TABLET 2 MG PO ×3 (09:02→21:37)
[2022-06-15] MEDS: Sertraline HCL 50 MG TABLET 150 MG PO (09:03)
[2022-06-15] MEDS: metFORMIN HCl ER 500 MG TAB.ER.24H PO (09:04)
[2022-06-15] MEDS: Tamsulosin HCL 0.4 MG CAPSULE PO (09:05)
[2022-06-15 21:25] VITALS: BP 129/64; PULSE 72; RESP 16; TEMP 36.1; O2SAT 96
[2022-06-15] MEDS: Lithium Carbonate 300 MG CAPSULE 600 MG PO (21:37)
[2022-06-15] MEDS: OLANZapine 10 MG TABLET PO (21:37)
[2022-06-15] MEDS: cloZAPine 25 MG TABLET 75 MG PO (21:37)
[2022-06-16 09:00] VITALS: BP 124/71; PULSE 74; RESP 16; TEMP 36.5; O2SAT 96
[2022-06-16 09:05] LABS: Glucose, Whole Blood 111 mg/dL (60-115)
--- NOTE | 2022-06-16 09:18 | HO.PSYCHPN ---
Subjective Subjective Date of Service: 06/15/22 Reason For Visit: psychosis Subjective Notes: Conditional Voluntary Interim History: Pt more visible on the unit. He is more talkative. He reports feeling better in that he is able to talk better. He reports his gait is improving- he appears somewhat ataxic but he states is actually improving but not baseline. He denies SI/HI. he reports he slept well. No behavioral concerns Medication Compliance: Yes Side effects from medications: No Attending Groups: Intermittent Review of Systems Review of Systems unable to obtain review of system Mental Status Exam Mental Status Exam Narrative: Appearance: wearing hospital gown, poor eye contact, in NAD Behavior: cooperative Psychomotor: retardation noted Speech: clear, with significant delayed in response, minimally spontaneous TP: single word answer TC: no overt psychosis, feeling off Mood: better Affect: constricted SI: denies HI: denies VH/AH: denies, ? thought blocking Delusions: no overt delusional content noted or reported. Insight/judgment: fair x 2. Memory/cog: alert, oriented x 3. Diagnostics Vital Signs (24Hr): Vital Signs - 24 hr 06/15/22 21:25 Temperature 97.0 F Pulse Rate 72 Respiratory Rate 16 Blood Pressure 129/64 Pulse Oximetry 96 Oxygen Delivery Method Room Air BMI result Body Mass Index 29.5 Labs 06/11/22 19:32 06/11/22 19:32 Labs: Laboratory Results - last 48 hr 06/14/22 06/15/22 06/16/22 09:18 08:08 08:54 POC Glucose 120 H 112 111 Medications Medications Current Medications Acetaminophen (Acetaminophen 325 Mg Tablet) 650 mg PO Q6H PRN PRN Reason: Headache/Pain Mild Scale (1-3) Al Hydroxide/Mg Hydroxide (Magnesium Hydrox/Alum Hydrox 30 Ml Oral.Susp) 30 ml PO Q6H PRN PRN Reason: Heartburn/Nausea Clozapine (Clozapine 25 Mg Tablet) 75 mg PO BEDTIME KRISTIN Last Admin: 06/15/22 21:37 Dose: 75 mg Guaifenesin (Guaifenesin 200 Mg/10 Ml 10 Ml Liquid) 10 ml PO Q4H PRN PRN Reason: productive cough Last Admin: 06/14/22 20:34 Dose: 10 ml Hydroxyzine HCl (Hydroxyzine Hcl 25 Mg Tablet) 25 mg PO Q6H PRN PRN Reason: Anxiety [place] Carbonate ([place] Carbonate 300 Mg Capsule) 600 mg PO BEDTIME COUNTS INCLUDE 234 BEDS AT THE [facility] Last Admin: 06/15/22 21:37 Dose: 600 mg Lorazepam (Lorazepam 1 Mg Tablet) 2 mg PO TID COUNTS INCLUDE 234 BEDS AT THE [facility] Last Admin: 06/15/22 21:37 Dose: 2 mg Magnesium Hydroxide (Milk Of Magnesia 30 Ml Oral.Susp) 30 ml PO DAILY PRN PRN Reason: Constipation Metformin HCl (Metformin Hcl Er 500 Mg Tab.Er.24h) 500 mg PO DAILY COUNTS INCLUDE 234 BEDS AT THE [facility] Last Admin: 06/15/22 09:04 Dose: 500 mg Nicotine Polacrilex (Nicotine Polacrilex 2 Mg Gum) 4 mg BUCCAL Q2H PRN PRN Reason: Nicotine Cravings Olanzapine (Olanzapine 10 Mg Tablet) 10 mg PO BEDTIME COUNTS INCLUDE 234 BEDS AT THE [facility] Last Admin: 06/15/22 21:37 Dose: 10 mg Olanzapine (Olanzapine 5 Mg Tablet) 5 mg PO TID PRN PRN Reason: agitation Sertraline HCl (Sertraline Hcl 50 Mg Tablet) 150 mg PO DAILY COUNTS INCLUDE 234 BEDS AT THE [facility] Last Admin: 06/15/22 09:03 Dose: 150 mg Tamsulosin HCl (Tamsulosin Hcl 0.4 Mg Capsule) 0.4 mg PO DAILY COUNTS INCLUDE 234 BEDS AT THE [facility] Last Admin: 06/15/22 09:05 Dose: 0.4 mg Trazodone HCl (Trazodone Hcl 50 Mg Tablet) 50 mg PO BEDTIME PRN PRN Reason: Insomnia Allergies Allergies Allergy/AdvReac Type Severity Reaction Status Date / Time No Known Allergies [NKA] Allergy Unknown NONE Verified 04/14/22 14:20 Assessment & Plan Assessment & Plan (1) Schizophrenia, catatonic: Status: Acute Code(s): 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 Tenorio is a 56 year-old male with hx of schizophrenia, stable for some years until he had declined in past 2-3 week. His [facility] high risk case manager contacted crisis as pt not verbal, appeared confused, not his baseline. Pt did start ibuprofen recently and in combination with lithium concern was potential lithium toxicity. [facility] provider noted jerk like movements which are not baseline. He did missed few doses prior to coming to the hospital. In the ED, lithium not toxic levels. However, it does seem some degree of underlying kidney disease with decrease creatinine clearance. Pt with s/s of catatonia including mutism, staring at wall, did improve once given ativan 2mg. He is on ativan 2mg po TID at home for years but may have missed some doses and in the ED ativan was ordered as PRN. Pt on clozaril but was restarted at 25mg po qhs given reports of pt missing more than 2 doses. He is currently on 50mg po qhs and will increase daily by 25mg. PLAN 1. Admit to M3, cv 15 minutes checks. 2. continue current medications. continue titration of clozaril 50mg po qhs today, 75mg po qhs tomorrow. 3. obtain collateral information 4. Aftercare planning 06/15 continue tx. Reason for contiued inpatient stay Substantial Risk for: inability to function Time Spent With Patient Time: Total time managing care of this patient today ____ minutes.
--- NOTE | 2022-06-16 09:24 | P.PNPSI_ITS ---
Subjective Subjective Date of Service: 06/16/22 Reason For Visit: psychosis Subjective Notes: Conditional Voluntary Interim History: Benjamin again appears with more signs of catatonia, staring at wall, not talking much. He does note that he seemed to be doing better yesterday. He denied SI/HI. Diagnostics Vital Signs (24Hr): Vital Signs - 24 hr 06/15/22 21:25 Temperature 97.0 F Pulse Rate 72 Respiratory Rate 16 Blood Pressure 129/64 Pulse Oximetry 96 Oxygen Delivery Method Room Air BMI result Body Mass Index 29.5 Labs 06/11/22 19:32 06/11/22 19:32 Labs: Laboratory Results - last 48 hr 06/14/22 06/15/22 06/16/22 09:18 08:08 08:54 POC Glucose 120 H 112 111 Medications Medications Current Medications Acetaminophen (Acetaminophen 325 Mg Tablet) 650 mg PO Q6H PRN PRN Reason: Headache/Pain Mild Scale (1-3) Al Hydroxide/Mg Hydroxide (Magnesium Hydrox/Alum Hydrox 30 Ml Oral.Susp) 30 ml PO Q6H PRN PRN Reason: Heartburn/Nausea Clozapine (Clozapine 25 Mg Tablet) 75 mg PO BEDTIME [facility] Last Admin: 06/15/22 21:37 Dose: 75 mg Guaifenesin (Guaifenesin 200 Mg/10 Ml 10 Ml Liquid) 10 ml PO Q4H PRN PRN Reason: productive cough Last Admin: 06/14/22 20:34 Dose: 10 ml Hydroxyzine HCl (Hydroxyzine Hcl 25 Mg Tablet) 25 mg PO Q6H PRN PRN Reason: Anxiety [place] Carbonate ([place] Carbonate 300 Mg Capsule) 600 mg PO BEDTIME [facility] Last Admin: 06/15/22 21:37 Dose: 600 mg Lorazepam (Lorazepam 1 Mg Tablet) 2 mg PO TID [facility] Last Admin: 06/15/22 21:37 Dose: 2 mg Magnesium Hydroxide (Milk Of Magnesia 30 Ml Oral.Susp) 30 ml PO DAILY PRN PRN Reason: Constipation Metformin HCl (Metformin Hcl Er 500 Mg Tab.Er.24h) 500 mg PO DAILY [facility] Last Admin: 06/15/22 09:04 Dose: 500 mg Nicotine Polacrilex (Nicotine Polacrilex 2 Mg Gum) 4 mg BUCCAL Q2H PRN PRN Reason: Nicotine Cravings Olanzapine (Olanzapine 10 Mg Tablet) 10 mg PO BEDTIME [facility] Last Admin: 06/15/22 21:37 Dose: 10 mg Olanzapine (Olanzapine 5 Mg Tablet) 5 mg PO TID PRN PRN Reason: agitation Sertraline HCl (Sertraline Hcl 50 Mg Tablet) 150 mg PO DAILY [facility] Last Admin: 06/15/22 09:03 Dose: 150 mg Tamsulosin HCl (Tamsulosin Hcl 0.4 Mg Capsule) 0.4 mg PO DAILY [facility] Last Admin: 06/15/22 09:05 Dose: 0.4 mg Trazodone HCl (Trazodone Hcl 50 Mg Tablet) 50 mg PO BEDTIME PRN PRN Reason: Insomnia Allergies Allergies Allergy/AdvReac Type Severity Reaction Status Date / Time No Known Allergies [NKA] Allergy Unknown NONE Verified 04/14/22 14:20 Assessment & Plan Assessment & Plan (1) Schizophrenia, catatonic: Status: Acute Code(s): 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 Tenorio is a 56 year-old male with hx of schizophrenia, stable for some years until he had declined in past 2-[address] [facility] disability case manager contacted crisis as pt not verbal, appeared confused, not his baseline. Pt did start ibuprofen recently and in combination with lithium concern was potential lithium toxicity. [facility] provider noted jerk like movements which are not baseline. He did missed few doses prior to coming to the hospital. In the ED, lithium not toxic levels. However, it does seem some degree of underlying kidney disease with decrease creatinine clearance. Pt with s/s of catatonia including mutism, staring at wall, did improve once given ativan 2mg. He is on ativan 2mg po TID at home for years but may have missed some doses and in the ED ativan was ordered as PRN. Pt on clozaril but was restarted at 25mg po qhs given reports of pt missing more than 2 doses. He is currently on 50mg po qhs and will increase daily by 25mg. PLAN 1. Admit to M3, cv 15 minutes checks. 2. continue current medications. continue titration of clozaril 50mg po qhs today, 75mg po qhs tomorrow. 3. obtain collateral information 4. Aftercare planning 06/15 continue tx. 06/16 increase ativan 2mg po QID. continue clozaril titration Reason for contiued inpatient stay Substantial Risk for: inability to function Time Spent With Patient Time: Total time managing care of this patient today ____ minutes.
[2022-06-16] MEDS: Sertraline HCL 50 MG TABLET 150 MG PO (09:29)
[2022-06-16] MEDS: Tamsulosin HCL 0.4 MG CAPSULE PO (09:29)
[2022-06-16] MEDS: LORazepam 1 MG TABLET 2 MG PO ×4 (09:29→23:02)
[2022-06-16] MEDS: metFORMIN HCl ER 500 MG TAB.ER.24H PO (09:30)
[2022-06-16 10:42] VITALS: BMI 31.6
[2022-06-16 11:05] LABS: Alanine Aminotransferase 7 U/L (0-40); Albumin Level 4.2 g/dL (3.5-5.0); Alkaline Phosphatase 64 U/L (39-117); Anion Gap 15 (12-20); Aspartate Amino Transferase 11 U/L (5-37); Bilirubin Total 0.8 mg/dL (0.0-1.0); Blood Urea Nitrogen 23 mg/dL (9-16); Calcium 9.3 mg/dL (8.4-10.2); Carbon Dioxide 26 mmol/L (22-29); Chloride 106 mmol/L (96-108); Creatinine Clr Calc Pharmacy 73.4; Estimated Glomerular Filt Rate 59; Glucose Fasting 108 mg/dL (60-99); Potassium 4.3 mmol/L (3.3-5.1); Sodium 143 mmol/L (135-145); Total Protein 6.7 g/dL (6.5-8.0)
[2022-06-16] MEDS: Milk of Magnesia 30 ML ORAL.SUSP PO (14:42)
[2022-06-16 16:30] VITALS: RESP 18
[2022-06-16 17:25] VITALS: RESP 18
[2022-06-16] MEDS: Docusate Sodium 100 MG CAPSULE PO (23:02)
[2022-06-16] MEDS: OLANZapine 10 MG TABLET PO (23:03)
[2022-06-16] MEDS: cloZAPine 100 MG TABLET PO (23:03)
[2022-06-16 23:05] VITALS: BP 115/58; PULSE 68; RESP 16; TEMP 36.2; O2SAT 94
[2022-06-17 08:42] LABS: Glucose, Whole Blood 98 mg/dL (60-115)
[2022-06-17 08:55] LABS: Lithium 0.87 mmol/L (0.60-1.20)
[2022-06-17] MEDS: Sertraline HCL 50 MG TABLET 150 MG PO (09:31)
[2022-06-17] MEDS: LORazepam 1 MG TABLET 2 MG PO ×4 (09:31→20:54)
[2022-06-17] MEDS: Tamsulosin HCL 0.4 MG CAPSULE PO (09:31)
[2022-06-17] MEDS: metFORMIN HCl ER 500 MG TAB.ER.24H PO (09:31)
[2022-06-17] MEDS: Docusate Sodium 100 MG CAPSULE PO ×2 (09:31→20:54)
[2022-06-17 09:37] VITALS: BP 124/68; PULSE 81; RESP 18; TEMP 36.2; O2SAT 96
--- NOTE | 2022-06-17 14:49 | P.PNPSI_ITS ---
Subjective Subjective Date of Service: 06/17/22 Reason For Visit: psychosis Interim History: delayed responses, soft spoken and flat. no requests or complaints. per staff, withdrawn. thought-blocking. distractible. eating. more catatonic. Mental Status Exam Mental Status Exam Narrative: Appearance: wearing hospital gown, poor eye contact, in NAD Behavior: cooperative Psychomotor: retardation noted Speech: soft and flat, with significant delayed in response, minimally spontaneo us TP: single word answer TC: no overt psychosis, feeling off Affect: constricted SI: denies HI: denies VH/AH: denies, ? thought blocking Delusions: no overt delusional content noted or reported. Insight/judgment: fair x 2. Memory/cog: alert, oriented x 3. Diagnostics Vital Signs (24Hr): Vital Signs - 24 hr 06/16/22 17:25 06/16/22 16:30 06/16/22 23:05 Temperature 97.2 F Pulse Rate 68 Respiratory Rate 18 18 16 Blood Pressure 115/58 L Pulse Oximetry 94 Oxygen Delivery Method Room Air 06/17/22 09:37 Temperature 97.2 F Pulse Rate 81 Respiratory Rate 18 Blood Pressure 124/68 Pulse Oximetry 96 Oxygen Delivery Method Room Air BMI result Body Mass Index 31.6 Labs 06/11/22 19:32 06/16/22 09:44 Labs: Laboratory Results - last 48 hr 06/16/22 06/16/22 06/17/22 08:54 09:44 08:30 Sodium 143 Potassium 4.3 Chloride 106 Carbon Dioxide 26 Anion Gap 15 BUN 23 H Creatinine 1.26 Estim Creat Clear Calc 73.4 Estimated GFR 59 POC Glucose 111 Fasting Glucose 108 H Calcium 9.3 Total Bilirubin 0.8 AST 11 ALT 7 Alkaline Phosphatase 64 Total Protein 6.7 Albumin 4.2 [place] 0.87 06/17/22 08:32 Sodium Potassium Chloride Carbon Dioxide Anion Gap BUN Creatinine Estim Creat Clear Calc Estimated GFR POC Glucose 98 Fasting Glucose Calcium Total Bilirubin AST ALT Alkaline Phosphatase Total Protein Albumin [place] Medications Medications Current Medications Acetaminophen (Acetaminophen 325 Mg Tablet) 650 mg PO Q6H PRN PRN Reason: Headache/Pain Mild Scale (1-3) Al Hydroxide/Mg Hydroxide (Magnesium Hydrox/Alum Hydrox 30 Ml Oral.Susp) 30 ml PO Q6H PRN PRN Reason: Heartburn/Nausea Clozapine (Clozapine 100 Mg Tablet) 100 mg PO BEDTIME [facility] Last Admin: 06/16/22 23:03 Dose: 100 mg Docusate Sodium (Docusate Sodium 100 Mg Capsule) 100 mg PO BID [facility] Last Admin: 06/17/22 09:31 Dose: 100 mg Guaifenesin (Guaifenesin 200 Mg/10 Ml 10 Ml Liquid) 10 ml PO Q4H PRN PRN Reason: productive cough Last Admin: 06/14/22 20:34 Dose: 10 ml Hydroxyzine HCl (Hydroxyzine Hcl 25 Mg Tablet) 25 mg PO Q6H PRN PRN Reason: Anxiety [place] Carbonate ([place] Carbonate 300 Mg Capsule) 600 mg PO BEDTIME [facility] Last Admin: 06/15/22 21:37 Dose: 600 mg Lorazepam (Lorazepam 1 Mg Tablet) 2 mg PO QID [facility] Last Admin: 06/17/22 13:19 Dose: 2 mg Magnesium Hydroxide (Milk Of Magnesia 30 Ml Oral.Susp) 30 ml PO DAILY PRN PRN Reason: Constipation Last Admin: 06/16/22 14:42 Dose: 30 ml Metformin HCl (Metformin Hcl Er 500 Mg Tab.Er.24h) 500 mg PO DAILY [facility] Last Admin: 06/17/22 09:31 Dose: 500 mg Nicotine Polacrilex (Nicotine Polacrilex 2 Mg Gum) 4 mg BUCCAL Q2H PRN PRN Reason: Nicotine Cravings Olanzapine (Olanzapine 10 Mg Tablet) 10 mg PO BEDTIME [facility] Last Admin: 06/16/22 23:03 Dose: 10 mg Olanzapine (Olanzapine 5 Mg Tablet) 5 mg PO TID PRN PRN Reason: agitation Sertraline HCl (Sertraline Hcl 50 Mg Tablet) 150 mg PO DAILY [facility] Last Admin: 06/17/22 09:31 Dose: 150 mg Tamsulosin HCl (Tamsulosin Hcl 0.4 Mg Capsule) 0.4 mg PO DAILY [facility] Last Admin: 06/17/22 09:31 Dose: 0.4 mg Trazodone HCl (Trazodone Hcl 50 Mg Tablet) 50 mg PO BEDTIME PRN PRN Reason: Insomnia Allergies Allergies Allergy/AdvReac Type Severity Reaction Status Date / Time No Known Allergies [NKA] Allergy Unknown NONE Verified 04/14/22 14:20 Assessment & Plan Assessment & Plan (1) Schizophrenia, catatonic: Status: Acute Code(s): 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 Tenorio is a 56 year-old male with hx of schizophrenia, stable for some years until he had declined in past 2-3 week. His [facility] embedded case manager contacted crisis as pt not verbal, appeared confused, not his baseline. Pt did start ibuprofen recently and in combination with lithium concern was potential lithium toxicity. [facility] provider noted jerk like movements which are not baseline. He did missed few doses prior to coming to the hospital. In the ED, lithium not toxic levels. However, it does seem some degree of underlying kidney disease with decrease creatinine clearance. Pt with s/s of catatonia including mutism, staring at wall, did improve once given ativan 2mg. He is on ativan 2mg po TID at home for years but may have missed some doses and in the ED ativan was ordered as PRN. Pt on clozaril but was restarted at 25mg po qhs given reports of pt missing more than 2 doses. He is currently on 50mg po qhs and will increase daily by 25mg. PLAN 1. Admit to M3, cv 15 minutes checks. 2. continue current medications. continue titration of clozaril 50mg po qhs today, 75mg po qhs tomorrow. 3. obtain collateral information 4. Aftercare planning 06/15 continue tx. 06/16 increase ativan 2mg po QID. continue clozaril titration 06/17: ativan increased from 2 mg TID to 2 mg QID today due to ongoing catatonia. Reason for contiued inpatient stay Substantial Risk for: inability to function and rapid decompensation Time Spent With Patient Time: Total time managing care of this patient today ____ minutes.
[2022-06-17] MEDS: Acetaminophen 325 MG TABLET 650 MG PO (20:53)
[2022-06-17] MEDS: guaiFENesin 200 MG/10 ML 10 ML LIQUID PO (20:53)
[2022-06-17] MEDS: OLANZapine 10 MG TABLET PO (20:54)
[2022-06-17] MEDS: cloZAPine 100 MG TABLET PO (20:54)
[2022-06-17 21:06] VITALS: BP 131/76; PULSE 71; TEMP 36.7; O2SAT 94
[2022-06-18 08:28] VITALS: BP 128/73; PULSE 71; TEMP 36.6; O2SAT 92
[2022-06-18 08:29] LABS: Glucose, Whole Blood 132 mg/dL (60-115)
[2022-06-18] MEDS: Sertraline HCL 50 MG TABLET 150 MG PO (08:55)
[2022-06-18] MEDS: LORazepam 1 MG TABLET 2 MG PO ×4 (08:55→20:27)
[2022-06-18] MEDS: Tamsulosin HCL 0.4 MG CAPSULE PO (08:57)
[2022-06-18] MEDS: Docusate Sodium 100 MG CAPSULE PO ×2 (08:57→20:28)
[2022-06-18] MEDS: metFORMIN HCl ER 500 MG TAB.ER.24H PO (08:57)
[2022-06-18 09:20] LABS: Neutrophils Absolute Auto 5.5 x10*3/uL (2.0-8.3); WBCANC 7.6 X10*3/uL
[2022-06-18] MEDS: guaiFENesin 200 MG/10 ML 10 ML LIQUID PO ×2 (10:52→20:27)
[2022-06-18] MEDS: Acetaminophen 325 MG TABLET 650 MG PO (20:27)
[2022-06-18] MEDS: OLANZapine 10 MG TABLET PO (20:28)
[2022-06-18] MEDS: cloZAPine 100 MG TABLET PO (20:28)
[2022-06-18 20:29] VITALS: BP 127/69; PULSE 67; TEMP 36.8; O2SAT 95
--- NOTE | 2022-06-18 22:01 | P.PNPSI_ITS ---
Subjective Subjective Date of Service: 06/18/22 Reason For Visit: psychosis Interim History: * delayed responses, soft spoken and flat. Patient having cough. No fevers. No SOB. No Chest pain. He continues withdrawn. no requests or complaints. thought-blocking. distractible. eating. Review of Systems Review of Systems unable to obtain review of system Mental Status Exam Mental Status Exam Narrative: Appearance: wearing hospital gown, poor eye contact, in NAD Behavior: cooperative Psychomotor: retardation noted Speech: soft and flat, with significant delayed in response, minimally spontaneous TP: single word answer TC: no overt psychosis, feeling off Affect: constricted SI: denies HI: denies VH/AH: denies, ? thought blocking Delusions: no overt delusional content noted or reported. Insight/judgment: fair x 2. Memory/cog: alert, oriented x 3. Diagnostics Vital Signs (24Hr): Vital Signs - 24 hr 06/18/22 08:28 06/18/22 20:29 Temperature 97.8 F 98.3 F Pulse Rate 71 67 Blood Pressure 128/73 127/69 Pulse Oximetry 92 95 Oxygen Delivery Method Room Air Room Air BMI result Body Mass Index 31.6 Labs 06/11/22 19:32 06/16/22 09:44 Labs: Laboratory Results - last 48 hr 06/17/22 06/17/22 06/18/22 08:30 08:32 08:18 Absolute Neuts (auto) POC Glucose 98 132 H [place] 0.87 06/18/22 09:01 Absolute Neuts (auto) 5.5 POC Glucose [place] Imaging Radiology Impressions: ITS Impressions Chest X-Ray 06/18/22 12:00 IMPRESSION: * Lungs are hypoinflated and right diaphragm elevated. * No evidence of pneumonia or congestive heart failure. Medications Medications Current Medications Acetaminophen (Acetaminophen 325 Mg Tablet) 650 mg PO Q6H PRN PRN Reason: Headache/Pain Mild Scale (1-3) Last Admin: 06/18/22 20:27 Dose: 650 mg Al Hydroxide/Mg Hydroxide (Magnesium Hydrox/Alum Hydrox 30 Ml Oral.Susp) 30 ml PO Q6H PRN PRN Reason: Heartburn/Nausea Clozapine (Clozapine 100 Mg Tablet) 100 mg PO BEDTIME [facility] Last Admin: 06/18/22 20:28 Dose: 100 mg Docusate Sodium (Docusate Sodium 100 Mg Capsule) 100 mg PO BID [facility] Last Admin: 06/18/22 20:28 Dose: 100 mg Guaifenesin (Guaifenesin 200 Mg/10 Ml 10 Ml Liquid) 10 ml PO Q4H PRN PRN Reason: productive cough Last Admin: 06/18/22 20:27 Dose: 10 ml Hydroxyzine HCl (Hydroxyzine Hcl 25 Mg Tablet) 25 mg PO Q6H PRN PRN Reason: Anxiety [place] Carbonate ([place] Carbonate 300 Mg Capsule) 600 mg PO BEDTIME [facility] Last Admin: 06/15/22 21:37 Dose: 600 mg Lorazepam (Lorazepam 1 Mg Tablet) 2 mg PO QID [facility] Last Admin: 06/18/22 20:27 Dose: 2 mg Magnesium Hydroxide (Milk Of Magnesia 30 Ml Oral.Susp) 30 ml PO DAILY PRN PRN Reason: Constipation Last Admin: 06/16/22 14:42 Dose: 30 ml Metformin HCl (Metformin Hcl Er 500 Mg Tab.Er.24h) 500 mg PO DAILY [facility] Last Admin: 06/18/22 08:57 Dose: 500 mg Nicotine Polacrilex (Nicotine Polacrilex 2 Mg Gum) 4 mg [place]CC[place] Q2H PRN PRN Reason: Nicotine Cravings Olanzapine (Olanzapine 10 Mg Tablet) 10 mg PO BEDTIME [facility] Last Admin: 06/18/22 20:28 Dose: 10 mg Olanzapine (Olanzapine 5 Mg Tablet) 5 mg PO TID PRN PRN Reason: agitation Sertraline HCl (Sertraline Hcl 50 Mg Tablet) 150 mg PO DAILY [facility] Last Admin: 06/18/22 08:55 Dose: 150 mg Tamsulosin HCl (Tamsulosin Hcl 0.4 Mg Capsule) 0.4 mg PO DAILY [facility] Last Admin: 06/18/22 08:57 Dose: 0.4 mg Trazodone HCl (Trazodone Hcl 50 Mg Tablet) 50 mg PO BEDTIME PRN PRN Reason: Insomnia Allergies Allergies Allergy/AdvReac Type Severity Reaction Status Date / Time No Known Allergies [NKA] Allergy Unknown NONE Verified 04/14/22 14:20 Assessment & Plan Assessment & Plan (1) Schizophrenia, catatonic: Status: Acute Code(s): 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 Tenorio is a 56 year-old male with hx of schizophrenia, stable for some years until he had declined in past 2-3 week. His [facility] protective services case worker contacted crisis as pt not verbal, appeared confused, not his baseline. Pt did start ibuprofen recently and in combination with lithium concern was potential lithium toxicity. [facility] provider noted jerk like movements which are not baseline. He did missed few doses prior to coming to the hospital. In the ED, lithium not toxic levels. However, it does seem some degree of underlying kidney disease with decrease creatinine clearance. Pt with s/s of catatonia including mutism, staring at wall, did improve once given ativan 2mg. He is on ativan 2mg po TID at home for years but may have missed some doses and in the ED ativan was ordered as PRN. Pt on clozaril but was restarted at 25mg po qhs given reports of pt missing more than 2 doses. He is currently on 50mg po qhs and will increase daily by 25mg. PLAN 1. Admit to M3, cv 15 minutes checks. 2. continue current medications. continue titration of clozaril 50mg po qhs today, 75mg po qhs tomorrow. 3. obtain collateral information 4. Aftercare planning 06/15 continue tx. 06/16 increase ativan 2mg po QID. continue clozaril titration 06/17: ativan increased from 2 mg TID to 2 mg QID today due to ongoing catatonia. 06/18: CXR no evidence of pneumonia or CHF. Monitor respiratory status. Continue psychiatric management. Reason for contiued inpatient stay Substantial Risk for: inability to function and rapid decompensation Time Spent With Patient Time: Total time managing care of this patient today ____ minutes.
[2022-06-19 09:00] VITALS: BP 139/71; PULSE 66; TEMP 36.6; O2SAT 91
[2022-06-19] MEDS: Sertraline HCL 50 MG TABLET 150 MG PO (09:12)
[2022-06-19] MEDS: Tamsulosin HCL 0.4 MG CAPSULE PO (09:13)
[2022-06-19] MEDS: Docusate Sodium 100 MG CAPSULE PO ×2 (09:13→22:25)
[2022-06-19] MEDS: LORazepam 1 MG TABLET 2 MG PO ×4 (09:13→22:25)
[2022-06-19] MEDS: metFORMIN HCl ER 500 MG TAB.ER.24H PO (09:14)
[2022-06-19 13:59] LABS: Glucose, Whole Blood 104 mg/dL (60-115)
[2022-06-19] MEDS: Milk of Magnesia 30 ML ORAL.SUSP PO (15:29)
--- NOTE | 2022-06-19 21:03 | HO.PSYCHPN ---
Subjective Subjective Date of Service: 06/19/22 Reason For Visit: psychosis Interim History: Patient seen and discussed with RN. He seems to be a little more responsive. He was seen in his room. He was slowed and laying in bed. He reported he is OK. He was asked about his eating and said I ate 25% of my food but it's not particularly gourmet food here. He denied SI. Continues on 1:1. He continues with delayed responses, soft spoken and flat. He continues withdrawn. thought-blocking. no requests or complaints. Review of Systems Review of Systems unable to obtain review of system Mental Status Exam Mental Status Exam Narrative: Appearance: wearing hospital gown, poor eye contact, in NAD Behavior: cooperative Psychomotor: retardation noted Speech: soft and flat, with significant delayed in response, minimally spontaneous TP: single word answer TC: no overt psychosis, feeling off Affect: constricted SI: denies HI: denies VH/AH: denies, ? thought blocking Delusions: no overt delusional content noted or reported. Insight/judgment: fair x 2. Memory/cog: alert, oriented x 3. Diagnostics Vital Signs (24Hr): Vital Signs - 24 hr 06/19/22 09:00 Temperature 97.9 F Pulse Rate 66 Blood Pressure 139/71 Pulse Oximetry 91 L Oxygen Delivery Method Room Air BMI result Body Mass Index 31.6 Labs 06/11/22 19:32 06/16/22 09:44 Labs: Laboratory Results - last 48 hr 06/18/22 06/18/22 06/19/22 08:18 09:01 08:54 Absolute Neuts (auto) 5.5 POC Glucose 132 H 104 Imaging Radiology Impressions: ITS Impressions Chest X-Ray 06/18/22 12:00 IMPRESSION: * Lungs are hypoinflated and right diaphragm elevated. * No evidence of pneumonia or congestive heart failure. Medications Medications Current Medications Acetaminophen (Acetaminophen 325 Mg Tablet) 650 mg PO Q6H PRN PRN Reason: Headache/Pain Mild Scale (1-3) Last Admin: 06/18/22 20:27 Dose: 650 mg Al Hydroxide/Mg Hydroxide (Magnesium Hydrox/Alum Hydrox 30 Ml Oral.Susp) 30 ml PO Q6H PRN PRN Reason: Heartburn/Nausea Clozapine (Clozapine 100 Mg Tablet) 100 mg PO BEDTIME [facility] Last Admin: 06/18/22 20:28 Dose: 100 mg Docusate Sodium (Docusate Sodium 100 Mg Capsule) 100 mg PO BID [facility] Last Admin: 06/19/22 09:13 Dose: 100 mg Guaifenesin (Guaifenesin 200 Mg/10 Ml 10 Ml Liquid) 10 ml PO Q4H PRN PRN Reason: productive cough Last Admin: 06/18/22 20:27 Dose: 10 ml Hydroxyzine HCl (Hydroxyzine Hcl 25 Mg Tablet) 25 mg PO Q6H PRN PRN Reason: Anxiety [place] Carbonate ([place] Carbonate 300 Mg Capsule) 600 mg PO BEDTIME [facility] Last Admin: 06/15/22 21:37 Dose: 600 mg Lorazepam (Lorazepam 1 Mg Tablet) 2 mg PO QID [facility] Last Admin: 06/19/22 17:23 Dose: 2 mg Magnesium Hydroxide (Milk Of Magnesia 30 Ml Oral.Susp) 30 ml PO DAILY PRN PRN Reason: Constipation Last Admin: 06/19/22 15:29 Dose: 30 ml Metformin HCl (Metformin Hcl Er 500 Mg Tab.Er.24h) 500 mg PO DAILY [facility] Last Admin: 06/19/22 09:14 Dose: 500 mg Nicotine Polacrilex (Nicotine Polacrilex 2 Mg Gum) 4 mg BUCCAL Q2H PRN PRN Reason: Nicotine Cravings Olanzapine (Olanzapine 10 Mg Tablet) 10 mg PO BEDTIME [facility] Last Admin: 06/18/22 20:28 Dose: 10 mg Olanzapine (Olanzapine 5 Mg Tablet) 5 mg PO TID PRN PRN Reason: agitation Sertraline HCl (Sertraline Hcl 50 Mg Tablet) 150 mg PO DAILY [facility] Last Admin: 06/19/22 09:12 Dose: 150 mg Tamsulosin HCl (Tamsulosin Hcl 0.4 Mg Capsule) 0.4 mg PO DAILY [facility] Last Admin: 06/19/22 09:13 Dose: 0.4 mg Trazodone HCl (Trazodone Hcl 50 Mg Tablet) 50 mg PO BEDTIME PRN PRN Reason: Insomnia Allergies Allergies Allergy/AdvReac Type Severity Reaction Status Date / Time No Known Allergies [NKA] Allergy Unknown NONE Verified 04/14/22 14:20 Assessment & Plan Assessment & Plan (1) Schizophrenia, catatonic: Status: Acute Code(s): 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 Tenorio is a 56 year-old male with hx of schizophrenia, stable for some years until he had declined in past 2-3 week. His [facility] piano case and bench assembler contacted crisis as pt not verbal, appeared confused, not his baseline. Pt did start ibuprofen recently and in combination with lithium concern was potential lithium toxicity. [facility] provider noted jerk like movements which are not baseline. He did missed few doses prior to coming to the hospital. In the ED, lithium not toxic levels. However, it does seem some degree of underlying kidney disease with decrease creatinine clearance. Pt with s/s of catatonia including mutism, staring at wall, did improve once given ativan 2mg. He is on ativan 2mg po TID at home for years but may have missed some doses and in the ED ativan was ordered as PRN. Pt on clozaril but was restarted at 25mg po qhs given reports of pt missing more than 2 doses. He is currently on 50mg po qhs and will increase daily by 25mg. PLAN 1. Admit to M3, cv 15 minutes checks. 2. continue current medications. continue titration of clozaril 50mg po qhs today, 75mg po qhs tomorrow. 3. obtain collateral information 4. Aftercare planning 06/15 continue tx. 06/16 increase ativan 2mg po QID. continue clozaril titration 06/17: ativan increased from 2 mg TID to 2 mg QID today due to ongoing catatonia. 06/18: CXR no evidence of pneumonia or CHF. Monitor respiratory status. Continue psychiatric management. 06/19: Continue current tx plan. Reason for contiued inpatient stay Substantial Risk for: inability to function and rapid decompensation Time Spent With Patient Time: Total time managing care of this patient today ____ minutes.
[2022-06-19 22:10] VITALS: BP 124/63; PULSE 64; RESP 16; TEMP 36.4; O2SAT 95
[2022-06-19] MEDS: OLANZapine 10 MG TABLET PO (22:25)
[2022-06-19] MEDS: cloZAPine 100 MG TABLET PO (22:25)
[2022-06-20 06:00] VITALS: BP 119/62; PULSE 66; RESP 16; TEMP 36.3; O2SAT 94
[2022-06-20 09:20] LABS: Glucose, Whole Blood 104 mg/dL (60-115)
--- NOTE | 2022-06-20 09:30 | HO.PSYCHPN ---
Subjective Subjective Date of Service: 06/20/22 Reason For Visit: psychosis Subjective Notes: Conditional Voluntary Interim History: Pt presents more sedated than catatonic- no waxy flexibility, pt reports feeling somnolent and needing to lay down in bed. He appears to have phlegm. swallowing eval ordered- pt down graded to NDD2- ground/mech altered. Labs ordered including cbc, cmp, no signs of infection, pt afebrile. Ativan lowered. Later in day pt less sedated, more talkative. Review of Systems Review of Systems unable to obtain review of system Mental Status Exam Mental Status Exam Narrative: Appearance: wearing hospital gown, poor eye contact, in NAD Behavior: cooperative Psychomotor: retardation noted Speech: soft and flat, with significant delayed in response, minimally spontaneous TP: single word answer TC: no overt psychosis, feeling off Affect: constricted SI: denies HI: denies VH/AH: denies, ? thought blocking Delusions: no overt delusional content noted or reported. Insight/judgment: fair x 2. Memory/cog: alert, oriented x 3. Diagnostics Vital Signs (24Hr): Vital Signs - 24 hr 06/19/22 22:10 06/20/22 06:00 Temperature 97.6 F 97.4 F Pulse Rate 64 66 Respiratory Rate 16 16 Blood Pressure 124/63 119/62 Pulse Oximetry 95 94 Oxygen Delivery Method Room Air Room Air BMI result Body Mass Index 31.6 Labs 06/11/22 19:32 06/16/22 09:44 Labs: Laboratory Results - last 48 hr 06/19/22 06/20/22 08:54 09:16 POC Glucose 104 104 Imaging Radiology Impressions: ITS Impressions Chest X-Ray 06/18/22 12:00 IMPRESSION: * Lungs are hypoinflated and right diaphragm elevated. * No evidence of pneumonia or congestive heart failure. Medications Medications Current Medications Acetaminophen (Acetaminophen 325 Mg Tablet) 650 mg PO Q6H PRN PRN Reason: Headache/Pain Mild Scale (1-3) Last Admin: 06/18/22 20:27 Dose: 650 mg Al Hydroxide/Mg Hydroxide (Magnesium Hydrox/Alum Hydrox 30 Ml Oral.Susp) 30 ml PO Q6H PRN PRN Reason: Heartburn/Nausea Clozapine (Clozapine 25 Mg Tablet) 125 mg PO BEDTIME [facility] Docusate Sodium (Docusate Sodium 100 Mg Capsule) 100 mg PO BID [facility] Last Admin: 06/19/22 22:25 Dose: 100 mg Guaifenesin (Guaifenesin 200 Mg/10 Ml 10 Ml Liquid) 10 ml PO Q4H PRN PRN Reason: productive cough Last Admin: 06/18/22 20:27 Dose: 10 ml Hydroxyzine HCl (Hydroxyzine Hcl 25 Mg Tablet) 25 mg PO Q6H PRN PRN Reason: Anxiety [place] Carbonate ([place] Carbonate 300 Mg Capsule) 600 mg PO BEDTIME [facility] Last Admin: 06/15/22 21:37 Dose: 600 mg Lorazepam (Lorazepam 1 Mg Tablet) 2 mg PO QID [facility] Last Admin: 06/19/22 22:25 Dose: 2 mg Magnesium Hydroxide (Milk Of Magnesia 30 Ml Oral.Susp) 30 ml PO DAILY PRN PRN Reason: Constipation Last Admin: 06/19/22 15:29 Dose: 30 ml Metformin HCl (Metformin Hcl Er 500 Mg Tab.Er.24h) 500 mg PO DAILY [facility] Last Admin: 06/19/22 09:14 Dose: 500 mg Nicotine Polacrilex (Nicotine Polacrilex 2 Mg Gum) 4 mg [place] Q2H PRN PRN Reason: Nicotine Cravings Olanzapine (Olanzapine 10 Mg Tablet) 10 mg PO BEDTIME [facility] Last Admin: 06/19/22 22:25 Dose: 10 mg Olanzapine (Olanzapine 5 Mg Tablet) 5 mg PO TID PRN PRN Reason: agitation Sertraline HCl (Sertraline Hcl 50 Mg Tablet) 150 mg PO DAILY [facility] Last Admin: 06/19/22 09:12 Dose: 150 mg Tamsulosin HCl (Tamsulosin Hcl 0.4 Mg Capsule) 0.4 mg PO DAILY [facility] Last Admin: 06/19/22 09:13 Dose: 0.4 mg Trazodone HCl (Trazodone Hcl 50 Mg Tablet) 50 mg PO BEDTIME PRN PRN Reason: Insomnia Allergies Allergies Allergy/AdvReac Type Severity Reaction Status Date / Time No Known Allergies [NKA] Allergy Unknown NONE Verified 04/14/22 14:20 Assessment & Plan Assessment & Plan (1) Schizophrenia, catatonic: Status: Acute Code(s): 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 Tenorio is a 56 year-old male with hx of schizophrenia, stable for some years until he had declined in past 2-3 week. His [facility] field case manager contacted crisis as pt not verbal, appeared confused, not his baseline. Pt did start ibuprofen recently and in combination with lithium concern was potential lithium toxicity. [facility] provider noted jerk like movements which are not baseline. He did missed few doses prior to coming to the hospital. In the ED, lithium not toxic levels. However, it does seem some degree of underlying kidney disease with decrease creatinine clearance. Pt with s/s of catatonia including mutism, staring at wall, did improve once given ativan 2mg. He is on ativan 2mg po TID at home for years but may have missed some doses and in the ED ativan was ordered as PRN. Pt on clozaril but was restarted at 25mg po qhs given reports of pt missing more than 2 doses. He is currently on 50mg po qhs and will increase daily by 25mg. PLAN 1. Admit to M3, cv 15 minutes checks. 2. continue current medications. continue titration of clozaril 50mg po qhs today, 75mg po qhs tomorrow. 3. obtain collateral information 4. Aftercare planning 06/15 continue tx. 06/16 increase ativan 2mg po QID. continue clozaril titration 06/17: ativan increased from 2 mg TID to 2 mg QID today due to ongoing catatonia. 06/18: CXR no evidence of pneumonia or CHF. Monitor respiratory status. Continue psychiatric management. 06/19: Continue current tx plan. 06/20 lower ativan to 1mg po tid- pt appears more sedated than catatonic. .hypersalivation noted- rebound anticholigergic with lower dose of clozaril. Titrate clozaril to 125mg po qhs. Home dose was 250mg po qhs. Reason for contiued inpatient stay Substantial Risk for: inability to function Time Spent With Patient Time: Total time managing care of this patient today ____ minutes.
[2022-06-20] MEDS: metFORMIN HCl ER 500 MG TAB.ER.24H PO (09:31)
[2022-06-20] MEDS: LORazepam 1 MG TABLET 2 MG PO (09:31)
[2022-06-20] MEDS: Docusate Sodium 100 MG CAPSULE PO ×2 (09:31→22:16)
[2022-06-20] MEDS: Sertraline HCL 50 MG TABLET 150 MG PO (09:31)
[2022-06-20] MEDS: Tamsulosin HCL 0.4 MG CAPSULE PO (09:31)
[2022-06-20 10:31] LABS: MANUAL DIFF FLAG NO
[2022-06-20 10:34] LABS: Basophils Percent Auto 0.1 % (0-2); Hematocrit 40.9 % (42.0-52.0); Hemoglobin 12.9 g/dl (14.0-18.0); Imm Gran Abs Auto 0.02 X10*3/uL (0.00-0.03); Imm Gran Pct Auto 0.3 % (0.0-0.4); Lymphocytes Absolute Auto 1.5 X10*3/uL (1.2-4.9); Lymphocytes Percent Auto 19.8 % (20-40); Mean Corpuscular HGB Conc 31.5 g/dl (31.0-36.0); Mean Corpuscular Hemoglobin 28.4 pg (27.0-33.0); Mean Corpuscular Volume 89.9 fL (80.0-98.0); Mean Platelet Volume 11.6 fL (9.4-12.4); Monocytes Absolute Auto 0.5 X10*3/uL (0.1-1.2); Monocytes Percent Auto 7.2 % (2-11); Neutrophils Absolute Auto 5.4 x10*3/uL (2.0-8.3); Neutrophils Percent Auto 72.6 % (45-73); Platelet Count 154 X10*3/uL (160-400); Red Blood Count 4.55 X10*6/uL (4.60-5.80); Red Cell Distribution Width 12.7 % (11.0-16.0); White Blood Count 7.4 X10*3/uL (4.8-10.8)
[2022-06-20 11:04] LABS: Alanine Aminotransferase 12 U/L (0-40); Albumin Level 3.8 g/dL (3.5-5.0); Alkaline Phosphatase 63 U/L (39-117); Anion Gap 10 (12-20); Aspartate Amino Transferase 20 U/L (5-37); Bilirubin Total 0.4 mg/dL (0.0-1.0); Blood Urea Nitrogen 19 mg/dL (9-16); Calcium 8.9 mg/dL (8.4-10.2); Carbon Dioxide 28 mmol/L (22-29); Chloride 107 mmol/L (96-108); Creatinine Clr Calc Pharmacy 71.9; Estimated Glomerular Filt Rate 58; Glucose Random 145 mg/dL (60-115); Potassium 4.3 mmol/L (3.3-5.1); Sodium 141 mmol/L (135-145)
--- NOTE | 2022-06-20 12:35 | MHC.SL.SWA ---
Speech Pathologist Impression: Oral phase dysphagia, risk of aspiration Risk of Aspiration Due to: Reduced Cognition Dysphasia Diet Status: Downgrade to NDD2/thin Liquid Consistency and Strategies for Safe Swallow: Liquid Intake Recommendation: Thin Liquid Intake Strategies: Small Sips No Straws Solid Food Consistency: Dietary Recommendations: Grnd/Mech Altered (NDD2) Additional Modifications to Solid Foods: Pt w/ mild oral phase dysphagia 2nd to current mental state. Oral phase characterized by prolonged, slow mastication pattern and pocketing of solid foods. Recommend DOWNGRADE to GROUND/MECH ALTERED (NDD2) solids at this time and continue on THIN liquids, pills WHOLE or CRUSHED in PUREE per pt's tolerance. Discussed with nursing staff on unit. Recommend total supervision, provide cues throughout meals as needed. Pt must be awake and alert for presentation of PO, minimize distractions during meals. Ensure pt is taking small bites and adequately chewing food before swallowing. Alternate solids and liquids to promote oral clearance. Oral cavity to be clear before taking more bites. Upright 90 degree position when eating and drinking. Diet order updated by [employer]. Notified care team (MD, RN, RD) via [place] Message. [employer] will continue to follow. Oral Medication Intake: Crushed with Puree Please contact the pharmacy regarding appropriate crushable or liquid drug formulations that are available whenever modified delivery is recommended. Compensatory Strategies and Precautions to be Taken for Safe Swallow: Sitting Upright (90 deg) Double Swallow No Straw Small Bites and Sips Alternate Liquids/Solids Rate of Ingestion Change Oral Check Avoid Specific Foods Supervision While Eating and Drinking for Safe Swallow: Total Supervision (1:1) Foods to Avoid: Hard to chew solids Swallowing Recommended Treatments: Compens. Strategy Educat. Recommendation for Speech: Inpatient Speech Therapy Tower Hoist Operator Clinican/Clinical Fellow: No Supervisory Statement: I have reviewed and agree with the student/clinical fellow's documentation: N/A Speech Language Pathologist: Nona Whitmore M.A., CCC-B[employer]ER
[2022-06-20 15:15] LABS: COVID-19 Test Negative (Negative); IDNOW Serial# 9DB6401D
[2022-06-20] MEDS: LORazepam 1 MG TABLET PO ×2 (15:54→22:16)
[2022-06-20 22:06] VITALS: BP 125/63; PULSE 63; RESP 16; TEMP 36.4; O2SAT 95
[2022-06-20] MEDS: cloZAPine 100 MG TABLET PO (22:16)
[2022-06-20] MEDS: OLANZapine 10 MG TABLET PO (22:16)
[2022-06-20] MEDS: cloZAPine 25 MG TABLET PO (22:16)
[2022-06-21 08:54] LABS: Glucose, Whole Blood 111 mg/dL (60-115)
[2022-06-21 08:55] VITALS: BP 130/63; PULSE 73; RESP 18; TEMP 36.4; O2SAT 91
[2022-06-21] MEDS: Tamsulosin HCL 0.4 MG CAPSULE PO (09:01)
[2022-06-21] MEDS: Docusate Sodium 100 MG CAPSULE PO ×2 (09:01→20:30)
[2022-06-21] MEDS: LORazepam 1 MG TABLET PO ×3 (09:01→20:30)
[2022-06-21] MEDS: Sertraline HCL 50 MG TABLET 150 MG PO (09:02)
[2022-06-21] MEDS: Milk of Magnesia 30 ML ORAL.SUSP PO (09:02)
[2022-06-21] MEDS: metFORMIN HCl ER 500 MG TAB.ER.24H PO (09:02)
--- NOTE | 2022-06-21 11:20 | HO.PSYCHPN ---
Subjective Subjective Date of Service: 06/21/22 Reason For Visit: psychosis Subjective Notes: Conditional Voluntary Interim History: Pt somewhat somnolent this morning. He reports swelling of right eye, which apparently not new. Pt more awake and visible on the unit around lunch time. He was talking more and more alert. He denies SI/HI. No overt VH/AH. continue clozaril titration Medication Compliance: Yes Side effects from medications: No Mental Status Exam Mental Status Exam Narrative: Appearance: wearing hospital gown, poor eye contact, in NAD Behavior: cooperative Psychomotor: retardation noted Speech:mumbles at times, less delayed in response rate, spontaneous TP: linear TC: no overt psychosis, feeling off Affect: constricted SI: denies HI: denies VH/AH: denies, ? thought blocking Delusions: no overt delusional content noted or reported. Insight/judgment: fair x 2. Memory/cog: alert, oriented x 3. Diagnostics Vital Signs (24Hr): Vital Signs - 24 hr 06/20/22 22:06 06/21/22 08:55 Temperature 97.6 F 97.6 F Pulse Rate 63 73 Respiratory Rate 16 18 Blood Pressure 125/63 130/63 Pulse Oximetry 95 91 L Oxygen Delivery Method Room Air Room Air BMI result Body Mass Index 31.6 Labs 06/20/22 10:25 06/20/22 05:20 Labs: Laboratory Results - last 48 hr 06/19/22 06/20/22 06/20/22 08:54 05:20 09:16 WBC RBC Hgb Hct MCV MCH MCHC RDW Plt Count MPV Immature Gran % (Auto) Neut % (Auto) Lymph % (Auto) [place] % (Auto) Eos % (Auto) Baso % (Auto) Lymph # (Auto) [place] # (Auto) Eos # (Auto) Baso # (Auto) Abs Immat Gran (auto) Absolute Neuts (auto) Absolute Nucleated RBC Nucleated RBC % (auto) Sodium 141 Potassium 4.3 Chloride 107 Carbon Dioxide 28 Anion Gap 10 L BUN 19 H Creatinine 1.27 Estim Creat Clear Calc 71.9 Estimated GFR 58 POC Glucose 104 104 Random Glucose 145 H Calcium 8.9 Total Bilirubin 0.4 AST 20 ALT 12 Alkaline Phosphatase 63 Total Protein 6.0 L Albumin 3.8 COVID-19 ([facility]) COVID-19 Clin Com 06/20/22 06/20/22 06/21/22 10:25 14:35 08:33 WBC 7.4 RBC 4.55 L Hgb 12.9 L Hct 40.9 L MCV 89.9 MCH 28.4 MCHC 31.5 RDW 12.7 Plt Count 154 L MPV 11.6 Immature Gran % (Auto) 0.3 Neut % (Auto) 72.6 Lymph % (Auto) 19.8 L [place] % (Auto) 7.2 Eos % (Auto) 0.0 Baso % (Auto) 0.1 Lymph # (Auto) 1.5 [place] # (Auto) 0.5 Eos # (Auto) 0.0 Baso # (Auto) 0.0 Abs Immat Gran (auto) 0.02 Absolute Neuts (auto) 5.4 Absolute Nucleated RBC 0.000 Nucleated RBC % (auto) 0.0 Sodium Potassium Chloride Carbon Dioxide Anion Gap BUN Creatinine Estim Creat Clear Calc Estimated GFR POC Glucose 111 Random Glucose Calcium Total Bilirubin AST ALT Alkaline Phosphatase Total Protein Albumin COVID-19 ([facility]) Negative COVID-19 Clin Com See Note Imaging Radiology Impressions: ITS Impressions Chest X-Ray 06/18/22 12:00 IMPRESSION: * Lungs are hypoinflated and right diaphragm elevated. * No evidence of pneumonia or congestive heart failure. Medications Medications Current Medications Acetaminophen (Acetaminophen 325 Mg Tablet) 650 mg PO Q6H PRN PRN Reason: Headache/Pain Mild Scale (1-3) Last Admin: 06/18/22 20:27 Dose: 650 mg Al Hydroxide/Mg Hydroxide (Magnesium Hydrox/Alum Hydrox 30 Ml Oral.Susp) 30 ml PO Q6H PRN PRN Reason: Heartburn/Nausea Clozapine (Clozapine 100 Mg Tablet) 100 mg PO BEDTIME [facility] Last Admin: 06/20/22 22:16 Dose: 100 mg Clozapine (Clozapine 25 Mg Tablet) 25 mg PO BEDTIME [facility] Last Admin: 06/20/22 22:16 Dose: 25 mg Docusate Sodium (Docusate Sodium 100 Mg Capsule) 100 mg PO BID [facility] Last Admin: 06/21/22 09:01 Dose: 100 mg Guaifenesin (Guaifenesin 200 Mg/10 Ml 10 Ml Liquid) 10 ml PO Q4H PRN PRN Reason: productive cough Last Admin: 06/18/22 20:27 Dose: 10 ml Hydroxyzine HCl (Hydroxyzine Hcl 25 Mg Tablet) 25 mg PO Q6H PRN PRN Reason: Anxiety [place] Carbonate ([place] Carbonate 300 Mg Capsule) 600 mg PO BEDTIME [facility] Last Admin: 06/15/22 21:37 Dose: 600 mg Lorazepam (Lorazepam 1 Mg Tablet) 1 mg PO TID [facility] Last Admin: 06/21/22 09:01 Dose: 1 mg Magnesium Hydroxide (Milk Of Magnesia 30 Ml Oral.Susp) 30 ml PO DAILY PRN PRN Reason: Constipation Last Admin: 06/21/22 09:02 Dose: 30 ml Metformin HCl (Metformin Hcl Er 500 Mg Tab.Er.24h) 500 mg PO DAILY [facility] Last Admin: 06/21/22 09:02 Dose: 500 mg Nicotine Polacrilex (Nicotine Polacrilex 2 Mg Gum) 4 mg BUCCAL Q2H PRN PRN Reason: Nicotine Cravings Olanzapine (Olanzapine 10 Mg Tablet) 10 mg PO BEDTIME [facility] Last Admin: 06/20/22 22:16 Dose: 10 mg Olanzapine (Olanzapine 5 Mg Tablet) 5 mg PO TID PRN PRN Reason: agitation Sertraline HCl (Sertraline Hcl 50 Mg Tablet) 150 mg PO DAILY [facility] Last Admin: 06/21/22 09:02 Dose: 150 mg Tamsulosin HCl (Tamsulosin Hcl 0.4 Mg Capsule) 0.4 mg PO DAILY [facility] Last Admin: 06/21/22 09:01 Dose: 0.4 mg Trazodone HCl (Trazodone Hcl 50 Mg Tablet) 50 mg PO BEDTIME PRN PRN Reason: Insomnia Allergies Allergies Allergy/AdvReac Type Severity Reaction Status Date / Time No Known Allergies [NKA] Allergy Unknown NONE Verified 04/14/22 14:20 Assessment & Plan Assessment & Plan (1) Schizophrenia, catatonic: Status: Acute Code(s): 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 Tenorio is a 56 year-old male with hx of schizophrenia, stable for some years until he had declined in past 2-3 week. His [facility] pillowcase folder contacted crisis as pt not verbal, appeared confused, not his baseline. Pt did start ibuprofen recently and in combination with lithium concern was potential lithium toxicity. [facility] provider noted jerk like movements which are not baseline. He did missed few doses prior to coming to the hospital. In the ED, lithium not toxic levels. However, it does seem some degree of underlying kidney disease with decrease creatinine clearance. Pt with s/s of catatonia including mutism, staring at wall, did improve once given ativan 2mg. He is on ativan 2mg po TID at home for years but may have missed some doses and in the ED ativan was ordered as PRN. Pt on clozaril but was restarted at 25mg po qhs given reports of pt missing more than 2 doses. He is currently on 50mg po qhs and will increase daily by 25mg. PLAN 1. Admit to M3, cv 15 minutes checks. 2. continue current medications. continue titration of clozaril 50mg po qhs today, 75mg po qhs tomorrow. 3. obtain collateral information 4. Aftercare planning 06/15 continue tx. 06/16 increase ativan 2mg po QID. continue clozaril titration 06/17: ativan increased from 2 mg TID to 2 mg QID today due to ongoing catatonia. 06/18: CXR no evidence of pneumonia or CHF. Monitor respiratory status. Continue psychiatric management. 06/19: Continue current tx plan. 06/20 lower ativan to 1mg po tid- pt appears more sedated than catatonic. .hypersalivation noted- ?rebound anticholigergic with lower dose of clozaril. Titrate clozaril to 125mg po qhs. Home dose was 250mg po qhs. 06/21 continue current tx. continue to monitor sedation, O2sat. Reason for contiued inpatient stay Substantial Risk for: inability to function Time Spent With Patient Time: Total time managing care of this patient today ____ minutes.
[2022-06-21 18:50] VITALS: BP 122/58; PULSE 69; RESP 18; TEMP 36.8; O2SAT 98
[2022-06-21] MEDS: cloZAPine 25 MG TABLET 50 MG PO (20:29)
[2022-06-21] MEDS: bisacodyL 5 MG TABLET.DR 10 MG PO (20:29)
[2022-06-21] MEDS: OLANZapine 10 MG TABLET PO (20:30)
[2022-06-21] MEDS: cloZAPine 100 MG TABLET PO (20:30)
[2022-06-22 08:24] LABS: Glucose, Whole Blood 102 mg/dL (60-115)
[2022-06-22 09:17] VITALS: BP 110/60; PULSE 76; RESP 20; TEMP 36.6; O2SAT 94
[2022-06-22] MEDS: Tamsulosin HCL 0.4 MG CAPSULE PO (09:18)
[2022-06-22] MEDS: LORazepam 1 MG TABLET PO ×3 (09:18→21:25)
[2022-06-22] MEDS: metFORMIN HCl ER 500 MG TAB.ER.24H PO (09:18)
[2022-06-22] MEDS: Sertraline HCL 50 MG TABLET 150 MG PO (09:18)
[2022-06-22] MEDS: Docusate Sodium 100 MG CAPSULE PO ×2 (09:19→21:23)
--- NOTE | 2022-06-22 16:50 | P.PNPSI_ITS ---
Subjective Subjective Date of Service: 06/22/22 Reason For Visit: psychosis Interim History: in bed. slowed, quiet. denies any problems, no questions or concerns. per staff, asleep much of the morning yesterday. walked to bathroom with 2-person assist. falling asleep in chair. denies anx/dep. denies SI/HI/AVH. slowed. making urine. some TV in eves. Mental Status Exam Mental Status Exam Narrative: Appearance: wearing hospital gown, poor eye contact, in NAD Behavior: cooperative Psychomotor: retardation noted Speech:mumbles at times, less delayed in response rate, spontaneous TP: linear TC: no overt psychosis, feeling off Affect: constricted SI: none expressed HI: none expressed VH/AH: none expressed Delusions: no overt delusional content noted or reported. Insight/judgment: fair x 2. Memory/cog: alert, oriented x 3. Diagnostics Vital Signs (24Hr): Vital Signs - 24 hr 06/21/22 18:50 06/22/22 09:17 Temperature 98.2 F 97.8 F Pulse Rate 69 76 Respiratory Rate 18 20 Blood Pressure 122/58 L 110/60 Pulse Oximetry 98 94 Oxygen Delivery Method Room Air Room Air BMI result Body Mass Index 31.6 Labs 06/20/22 10:25 06/20/22 05:20 Labs: Laboratory Results - last 48 hr 06/21/22 06/22/22 08:33 08:19 POC Glucose 111 102 Imaging Radiology Impressions: ITS Impressions Chest X-Ray 06/18/22 12:00 IMPRESSION: * Lungs are hypoinflated and right diaphragm elevated. * No evidence of pneumonia or congestive heart failure. Medications Medications Current Medications Acetaminophen (Acetaminophen 325 Mg Tablet) 650 mg PO Q6H PRN PRN Reason: Headache/Pain Mild Scale (1-3) Last Admin: 06/18/22 20:27 Dose: 650 mg Al Hydroxide/Mg Hydroxide (Magnesium Hydrox/Alum Hydrox 30 Ml Oral.Susp) 30 ml PO Q6H PRN PRN Reason: Heartburn/Nausea Clozapine (Clozapine 100 Mg Tablet) 100 mg PO BEDTIME [facility] Last Admin: 06/21/22 20:30 Dose: 100 mg Clozapine (Clozapine 25 Mg Tablet) 50 mg PO BEDTIME [facility] Last Admin: 06/21/22 20:29 Dose: 50 mg Docusate Sodium (Docusate Sodium 100 Mg Capsule) 100 mg PO BID [facility] Last Admin: 06/22/22 09:19 Dose: 100 mg Guaifenesin (Guaifenesin 200 Mg/10 Ml 10 Ml Liquid) 10 ml PO Q4H PRN PRN Reason: productive cough Last Admin: 06/18/22 20:27 Dose: 10 ml Hydroxyzine HCl (Hydroxyzine Hcl 25 Mg Tablet) 25 mg PO Q6H PRN PRN Reason: Anxiety [place] Carbonate ([place] Carbonate 300 Mg Capsule) 600 mg PO BEDTIME [facility] Last Admin: 06/15/22 21:37 Dose: 600 mg Lorazepam (Lorazepam 1 Mg Tablet) 1 mg PO TID [facility] Last Admin: 06/22/22 15:33 Dose: 1 mg Magnesium Hydroxide (Milk Of Magnesia 30 Ml Oral.Susp) 30 ml PO DAILY PRN PRN Reason: Constipation Last Admin: 06/21/22 09:02 Dose: 30 ml Metformin HCl (Metformin Hcl Er 500 Mg Tab.Er.24h) 500 mg PO DAILY [facility] Last Admin: 06/22/22 09:18 Dose: 500 mg Nicotine Polacrilex (Nicotine Polacrilex 2 Mg Gum) 4 mg BUCCAL Q2H PRN PRN Reason: Nicotine Cravings Olanzapine (Olanzapine 10 Mg Tablet) 10 mg PO BEDTIME [facility] Last Admin: 06/21/22 20:30 Dose: 10 mg Olanzapine (Olanzapine 5 Mg Tablet) 5 mg PO TID PRN PRN Reason: agitation Sertraline HCl (Sertraline Hcl 50 Mg Tablet) 150 mg PO DAILY [facility] Last Admin: 06/22/22 09:18 Dose: 150 mg Tamsulosin HCl (Tamsulosin Hcl 0.4 Mg Capsule) 0.4 mg PO DAILY [facility] Last Admin: 06/22/22 09:18 Dose: 0.4 mg Trazodone HCl (Trazodone Hcl 50 Mg Tablet) 50 mg PO BEDTIME PRN PRN Reason: Insomnia Allergies Allergies Allergy/AdvReac Type Severity Reaction Status Date / Time No Known Allergies [NKA] Allergy Unknown NONE Verified 04/14/22 14:20 Assessment & Plan Assessment & Plan (1) Schizophrenia, catatonic: Status: Acute Code(s): 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 Tenorio is a 56 year-old male with hx of schizophrenia, stable for some years until he had declined in past 2-3 week. His [facility] keycase assembler contacted crisis as pt not verbal, appeared confused, not his baseline. Pt did start ibuprofen recently and in combination with lithium concern was potential lithium toxicity. [facility] provider noted jerk like movements which are not baseline. He did missed few doses prior to coming to the hospital. In the ED, lithium not toxic levels. However, it does seem some degree of underlying kidney disease with decrease creatinine clearance. Pt with s/s of catatonia including mutism, staring at wall, did improve once given ativan 2mg. He is on ativan 2mg po TID at home for years but may have missed some doses and in the ED ativan was ordered as PRN. Pt on clozaril but was restarted at 25mg po qhs given reports of pt missing more than 2 doses. He is currently on 50mg po qhs and will increase daily by 25mg. PLAN 1. Admit to M3, cv 15 minutes checks. 2. continue current medications. continue titration of clozaril 50mg po qhs today, 75mg po qhs tomorrow. 3. obtain collateral information 4. Aftercare planning 06/15 continue tx. 06/16 increase ativan 2mg po QID. continue clozaril titration 06/17: ativan increased from 2 mg TID to 2 mg QID today due to ongoing catatonia. 06/18: CXR no evidence of pneumonia or CHF. Monitor respiratory status. Continue psychiatric management. 06/19: Continue current tx plan. 06/20 lower ativan to 1mg po tid- pt appears more sedated than catatonic. .hypersalivation noted- ?rebound anticholigergic with lower dose of clozaril. Titrate clozaril to 125mg po qhs. Home dose was 250mg po qhs. 06/21 continue current tx. continue to monitor sedation, O2sat. 06/22: stable. no change in mgmt. Reason for contiued inpatient stay Substantial Risk for: inability to function and med/psych decompensation Time Spent With Patient Time: Total time managing care of this patient today ____ minutes.
[2022-06-22] MEDS: OLANZapine 10 MG TABLET PO (21:23)
[2022-06-22] MEDS: cloZAPine 25 MG TABLET 50 MG PO (21:24)
[2022-06-22] MEDS: cloZAPine 100 MG TABLET PO (21:25)
[2022-06-22 21:33] VITALS: BP 115/60; PULSE 71; TEMP 36.4; O2SAT 93
[2022-06-23 07:00] VITALS: BMI 32.1
[2022-06-23 08:15] VITALS: BP 126/64; PULSE 77; RESP 18; TEMP 36.6; O2SAT 97
[2022-06-23 08:38] LABS: Glucose, Whole Blood 116 mg/dL (60-115)
[2022-06-23] MEDS: Sertraline HCL 50 MG TABLET 150 MG PO (08:46)
[2022-06-23] MEDS: metFORMIN HCl ER 500 MG TAB.ER.24H PO (08:47)
[2022-06-23] MEDS: LORazepam 1 MG TABLET PO ×3 (08:48→20:37)
[2022-06-23] MEDS: Docusate Sodium 100 MG CAPSULE PO ×2 (08:48→20:36)
[2022-06-23] MEDS: Tamsulosin HCL 0.4 MG CAPSULE PO (08:48)
--- NOTE | 2022-06-23 15:56 | HO.PSYCHPN ---
Subjective Subjective Date of Service: 06/23/22 Reason For Visit: psychosis Interim History: up and about today, less PMR, more spontaneous. agreeable to clozapine dose increase. per staff, anpped much of day yesterday. up with assistance. not attending groups. dep 9, anx 7 on eves. denies SI/HI. unsure re AVH. slept well overnight. Mental Status Exam Mental Status Exam Narrative: Appearance: wearing hospital gown, poor eye contact, in NAD Behavior: cooperative Psychomotor: retardation noted Speech:mumbles at times, less delayed in response rate, spontaneous TP: linear TC: no overt psychosis, feeling off Affect: constricted SI: none expressed HI: none expressed VH/AH: none expressed Delusions: no overt delusional content noted or reported. Insight/judgment: fair x 2. Memory/cog: alert, oriented x 3. Diagnostics Vital Signs (24Hr): Vital Signs - 24 hr 06/22/22 21:33 06/23/22 08:15 Temperature 97.6 F 97.9 F Pulse Rate 71 77 Respiratory Rate 18 Blood Pressure 115/60 126/64 Pulse Oximetry 93 97 Oxygen Delivery Method Room Air Room Air BMI result Body Mass Index 32.1 Labs 06/20/22 10:25 06/20/22 05:20 Labs: Laboratory Results - last 48 hr 06/22/22 06/23/22 08:19 07:52 POC Glucose 102 116 H Imaging Radiology Impressions: ITS Impressions Chest X-Ray 06/18/22 12:00 IMPRESSION: * Lungs are hypoinflated and right diaphragm elevated. * No evidence of pneumonia or congestive heart failure. Medications Medications Current Medications Acetaminophen (Acetaminophen 325 Mg Tablet) 650 mg PO Q6H PRN PRN Reason: Headache/Pain Mild Scale (1-3) Last Admin: 06/18/22 20:27 Dose: 650 mg Al Hydroxide/Mg Hydroxide (Magnesium Hydrox/Alum Hydrox 30 Ml Oral.Susp) 30 ml PO Q6H PRN PRN Reason: Heartburn/Nausea Clozapine (Clozapine 100 Mg Tablet) 100 mg PO BEDTIME [facility] Last Admin: 06/22/22 21:25 Dose: 100 mg Clozapine (Clozapine 25 Mg Tablet) 50 mg PO BEDTIME [facility] Last Admin: 06/22/22 21:24 Dose: 50 mg Docusate Sodium (Docusate Sodium 100 Mg Capsule) 100 mg PO BID [facility] Last Admin: 06/23/22 08:48 Dose: 100 mg Guaifenesin (Guaifenesin 200 Mg/10 Ml 10 Ml Liquid) 10 ml PO Q4H PRN PRN Reason: productive cough Last Admin: 06/18/22 20:27 Dose: 10 ml Hydroxyzine HCl (Hydroxyzine Hcl 25 Mg Tablet) 25 mg PO Q6H PRN PRN Reason: Anxiety [place] Carbonate ([place] Carbonate 300 Mg Capsule) 600 mg PO BEDTIME [facility] Last Admin: 06/15/22 21:37 Dose: 600 mg Lorazepam (Lorazepam 1 Mg Tablet) 1 mg PO TID [facility] Last Admin: 06/23/22 14:34 Dose: 1 mg Magnesium Hydroxide (Milk Of Magnesia 30 Ml Oral.Susp) 30 ml PO DAILY PRN PRN Reason: Constipation Last Admin: 06/21/22 09:02 Dose: 30 ml Metformin HCl (Metformin Hcl Er 500 Mg Tab.Er.24h) 500 mg PO DAILY [facility] Last Admin: 06/23/22 08:47 Dose: 500 mg Nicotine Polacrilex (Nicotine Polacrilex 2 Mg Gum) 4 mg BUCCAL Q2H PRN PRN Reason: Nicotine Cravings Olanzapine (Olanzapine 10 Mg Tablet) 10 mg PO BEDTIME [facility] Last Admin: 06/22/22 21:23 Dose: 10 mg Olanzapine (Olanzapine 5 Mg Tablet) 5 mg PO TID PRN PRN Reason: agitation Sertraline HCl (Sertraline Hcl 50 Mg Tablet) 150 mg PO DAILY [facility] Last Admin: 06/23/22 08:46 Dose: 150 mg Tamsulosin HCl (Tamsulosin Hcl 0.4 Mg Capsule) 0.4 mg PO DAILY [facility] Last Admin: 06/23/22 08:48 Dose: 0.4 mg Trazodone HCl (Trazodone Hcl 50 Mg Tablet) 50 mg PO BEDTIME PRN PRN Reason: Insomnia Allergies Allergies Allergy/AdvReac Type Severity Reaction Status Date / Time No Known Allergies [NKA] Allergy Unknown NONE Verified 04/14/22 14:20 Assessment & Plan Assessment & Plan (1) Schizophrenia, catatonic: Status: Acute Code(s): 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 Tenorio is a 56 year-old male with hx of schizophrenia, stable for some years until he had declined in past 2-[address] [facility] pillowcase turner contacted crisis as pt not verbal, appeared confused, not his baseline. Pt did start ibuprofen recently and in combination with lithium concern was potential lithium toxicity. [facility] provider noted jerk like movements which are not baseline. He did missed few doses prior to coming to the hospital. In the ED, lithium not toxic levels. However, it does seem some degree of underlying kidney disease with decrease creatinine clearance. Pt with s/s of catatonia including mutism, staring at wall, did improve once given ativan 2mg. He is on ativan 2mg po TID at home for years but may have missed some doses and in the ED ativan was ordered as PRN. Pt on clozaril but was restarted at 25mg po qhs given reports of pt missing more than 2 doses. He is currently on 50mg po qhs and will increase daily by 25mg. PLAN 1. Admit to M3, cv 15 minutes checks. 2. continue current medications. continue titration of clozaril 50mg po qhs today, 75mg po qhs tomorrow. 3. obtain collateral information 4. Aftercare planning 06/15 continue tx. 06/16 increase ativan 2mg po QID. continue clozaril titration 06/17: ativan increased from 2 mg TID to 2 mg QID today due to ongoing catatonia. 06/18: CXR no evidence of pneumonia or CHF. Monitor respiratory status. Continue psychiatric management. 06/19: Continue current tx plan. 06/20 lower ativan to 1mg po tid- pt appears more sedated than catatonic. .hypersalivation noted- ?rebound anticholigergic with lower dose of clozaril. Titrate clozaril to 125mg po qhs. Home dose was 250mg po qhs. 06/21 continue current tx. continue to monitor sedation, O2sat. 06/22: stable. no change in mgmt. 06/23: increase HS clozapine from 150 mg to 175 mg. slightly less PMR. Reason for contiued inpatient stay Substantial Risk for: inability to function and rapid decompensation Time Spent With Patient Time: Total time managing care of this patient today ____ minutes.
--- NOTE | 2022-06-23 16:58 | MHC.SL.SWA ---
Speech Pathologist Impression: Risk of Aspiration Due to: Reduced Cognition Dysphasia Diet Status: Recommend patient continue on Ground/Mechanical Altered with thin liquids pills whole with liquid. Liquid Consistency and Strategies for Safe Swallow: Liquid Intake Recommendation: Thin Liquid Intake Strategies: Small Sips No Straws Solid Food Consistency: Dietary Recommendations: Grnd/Mech Altered (NDD2) Additional Modifications to Solid Foods: Pt w/ mild oral phase dysphagia 2nd to current mental state. Oral phase characterized by prolonged, slow mastication pattern and pocketing of solid foods. Oral Medication Intake: Whole with Liquid Please contact the pharmacy regarding appropriate crushable or liquid drug formulations that are available whenever modified delivery is recommended. Compensatory Strategies and Precautions to be Taken for Safe Swallow: Sitting Upright (90 deg) Double Swallow No Straw Small Bites and Sips Alternate Liquids/Solids Rate of Ingestion Change Avoid Specific Foods Supervision While Eating and Drinking for Safe Swallow: Total Supervision (1:1) Foods to Avoid: Hard to chew solids Swallowing Recommended Treatments: Compens. Strategy Educat. Recommendation for Speech: Inpatient Speech Therapy Comment:Patient was seen during lunch to assess toleration of recommended diet. Patient had already begun his lunch when I arrived, had sitter with him in his room. I introduced myself and stated why I was there which patient listened to without making eye contact. He then ceased eating, put hands in his lap, became very still and did not make any verbal response to queries. I labelled the issue that my presence had made him stop eating so I would leave, then stood near door observing the meal. He resumed eating on my departure. Patient had a lunch of Mac and Cheese with soup and pudding for desert. He ate the full plate of mac and cheese. Noted slow and careful rate of mastication, no difficulty with swallowing. Patient was observed opening and drinking a juice cup, also with no difficulty with swallowing. Patient appears to be tolerating diet consistency well, and it appears to be appropriate given patient's slow rate of mastication. Recommend patient continue on Ground/Mechanical Altered with thin liquids pills whole with liquid. Frequency/Duration: Date Range for Service Req: Timeline to reassess: Oil Expeller Operator Clinican/Clinical Fellow: No Supervisory Statement: I have reviewed and agree with the student/clinical fellow's documentation: N/A Speech Language Pathologist: Vicki Jane M.A., CCC-GAME MASTER
[2022-06-23 20:34] VITALS: BP 127/63; PULSE 62; RESP 18; TEMP 36.4; O2SAT 94
[2022-06-23] MEDS: OLANZapine 10 MG TABLET PO (20:36)
[2022-06-23] MEDS: cloZAPine 100 MG TABLET PO (20:36)
[2022-06-23] MEDS: cloZAPine 25 MG TABLET 75 MG PO (20:36)
[2022-06-23] MEDS: OLANZapine 5 MG TABLET PO (20:37)
[2022-06-24 08:36] LABS: Glucose, Whole Blood 108 mg/dL (60-115)
[2022-06-24 08:54] VITALS: BP 131/77; PULSE 68; RESP 15; TEMP 36.6; O2SAT 92
[2022-06-24] MEDS: metFORMIN HCl ER 500 MG TAB.ER.24H PO (09:08)
[2022-06-24] MEDS: LORazepam 1 MG TABLET PO ×3 (09:08→21:50)
[2022-06-24] MEDS: Sertraline HCL 50 MG TABLET 150 MG PO (09:08)
[2022-06-24] MEDS: Tamsulosin HCL 0.4 MG CAPSULE PO (09:08)
[2022-06-24] MEDS: Docusate Sodium 100 MG CAPSULE PO ×2 (09:08→21:50)
--- NOTE | 2022-06-24 14:10 | P.PNPSI_ITS ---
Subjective Subjective Date of Service: 06/24/22 Reason For Visit: psychosis Interim History: sleeping midday. slowed, tired. states he is not doing well but is unable to describe in what way. agrees to hold off on clozapine increase today. per staff, attended 2 groups yesterday. meds and meals compliant. slept doris shift and also through the night. Mental Status Exam Mental Status Exam Narrative: Appearance: wearing hospital gown, poor eye contact, in NAD Behavior: cooperative Psychomotor: retardation noted Speech:mumbles at times, delayed in response rate, non-spontaneous TP: linear TC: no overt psychosis, feeling off Affect: constricted SI: none expressed HI: none expressed VH/AH: none expressed Delusions: no overt delusional content noted or reported. Insight/judgment: fair x 2. Memory/cog: alert, oriented x 3. Diagnostics Vital Signs (24Hr): Vital Signs - 24 hr 06/23/22 20:34 06/24/22 08:54 Temperature 97.6 F 97.9 F Pulse Rate 62 68 Respiratory Rate 18 15 Blood Pressure 127/63 131/77 Pulse Oximetry 94 92 Oxygen Delivery Method Room Air Room Air BMI result Body Mass Index 32.1 Labs 06/20/22 10:25 06/20/22 05:20 Labs: Laboratory Results - last 48 hr 06/23/22 06/24/22 07:52 08:32 POC Glucose 116 H 108 Imaging Radiology Impressions: ITS Impressions Chest X-Ray 06/18/22 12:00 IMPRESSION: * Lungs are hypoinflated and right diaphragm elevated. * No evidence of pneumonia or congestive heart failure. Medications Medications Current Medications Acetaminophen (Acetaminophen 325 Mg Tablet) 650 mg PO Q6H PRN PRN Reason: Headache/Pain Mild Scale (1-3) Last Admin: 06/18/22 20:27 Dose: 650 mg Al Hydroxide/Mg Hydroxide (Magnesium Hydrox/Alum Hydrox 30 Ml Oral.Susp) 30 ml PO Q6H PRN PRN Reason: Heartburn/Nausea Clozapine (Clozapine 100 Mg Tablet) 100 mg PO BEDTIME [facility] Last Admin: 06/23/22 20:36 Dose: 100 mg Clozapine (Clozapine 25 Mg Tablet) 75 mg PO BEDTIME [facility] Last Admin: 06/23/22 20:36 Dose: 75 mg Docusate Sodium (Docusate Sodium 100 Mg Capsule) 100 mg PO BID [facility] Last Admin: 06/24/22 09:08 Dose: 100 mg Guaifenesin (Guaifenesin 200 Mg/10 Ml 10 Ml Liquid) 10 ml PO Q4H PRN PRN Reason: productive cough Last Admin: 06/18/22 20:27 Dose: 10 ml Hydroxyzine HCl (Hydroxyzine Hcl 25 Mg Tablet) 25 mg PO Q6H PRN PRN Reason: Anxiety [place] Carbonate ([place] Carbonate 300 Mg Capsule) 600 mg PO BEDTIME [facility] Last Admin: 06/15/22 21:37 Dose: 600 mg Lorazepam (Lorazepam 1 Mg Tablet) 1 mg PO TID [facility] Last Admin: 06/24/22 09:08 Dose: 1 mg Magnesium Hydroxide (Milk Of Magnesia 30 Ml Oral.Susp) 30 ml PO DAILY PRN PRN Reason: Constipation Last Admin: 06/21/22 09:02 Dose: 30 ml Metformin HCl (Metformin Hcl Er 500 Mg Tab.Er.24h) 500 mg PO DAILY [facility] Last Admin: 06/24/22 09:08 Dose: 500 mg Nicotine Polacrilex (Nicotine Polacrilex 2 Mg Gum) 4 mg BUCCAL Q2H PRN PRN Reason: Nicotine Cravings Olanzapine (Olanzapine 10 Mg Tablet) 10 mg PO BEDTIME [facility] Last Admin: 06/23/22 20:36 Dose: 10 mg Olanzapine (Olanzapine 5 Mg Tablet) 5 mg PO TID PRN PRN Reason: agitation Last Admin: 06/23/22 20:37 Dose: 5 mg Sertraline HCl (Sertraline Hcl 50 Mg Tablet) 150 mg PO DAILY [facility] Last Admin: 06/24/22 09:08 Dose: 150 mg Tamsulosin HCl (Tamsulosin Hcl 0.4 Mg Capsule) 0.4 mg PO DAILY [facility] Last Admin: 06/24/22 09:08 Dose: 0.4 mg Trazodone HCl (Trazodone Hcl 50 Mg Tablet) 50 mg PO BEDTIME PRN PRN Reason: Insomnia Allergies Allergies Allergy/AdvReac Type Severity Reaction Status Date / Time No Known Allergies [NKA] Allergy Unknown NONE Verified 04/14/22 14:20 Assessment & Plan Assessment & Plan (1) Schizophrenia, catatonic: Status: Acute Code(s): 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 Tenorio is a 56 year-old male with hx of schizophrenia, stable for some years until he had declined in past 2-3 week. His [facility] manager of case contacted crisis as pt not verbal, appeared confused, not his baseline. Pt did start ibuprofen recently and in combination with lithium concern was potential lithium toxicity. [facility] provider noted jerk like movements which are not baseline. He did missed few doses prior to coming to the hospital. In the ED, lithium not toxic levels. However, it does seem some degree of underlying kidney disease with decrease creatinine clearance. Pt with s/s of catatonia including mutism, staring at wall, did improve once given ativan 2mg. He is on ativan 2mg po TID at home for years but may have missed some doses and in the ED ativan was ordered as PRN. Pt on clozaril but was restarted at 25mg po qhs given reports of pt missing more than 2 doses. He is currently on 50mg po qhs and will increase daily by 25mg. PLAN 1. Admit to M3, cv 15 minutes checks. 2. continue current medications. continue titration of clozaril 50mg po qhs today, 75mg po qhs tomorrow. 3. obtain collateral information 4. Aftercare planning 06/15 continue tx. 06/16 increase ativan 2mg po QID. continue clozaril titration 06/17: ativan increased from 2 mg TID to 2 mg QID today due to ongoing catatonia. 06/18: CXR no evidence of pneumonia or CHF. Monitor respiratory status. Continue psychiatric management. 06/19: Continue current tx plan. 06/20 lower ativan to 1mg po tid- pt appears more sedated than catatonic. .hypersalivation noted- ?rebound anticholigergic with lower dose of clozaril. Titrate clozaril to 125mg po qhs. Home dose was 250mg po qhs. 06/21 continue current tx. continue to monitor sedation, O2sat. 06/22: stable. no change in mgmt. 06/23: increase HS clozapine from 150 mg to 175 mg. slightly less PMR. 06/24: appears sedated midday. no increase in clozapine for today. continue cu rrent mgmt. Reason for contiued inpatient stay Substantial Risk for: inability to function and rapid decompensation Time Spent With Patient Time: Total time managing care of this patient today ____ minutes.
--- NOTE | 2022-06-24 15:51 | MHC.SL.SWA ---
Addendum entered and electronically signed by Nona Whitmore MA, CCC-PATHOLOGY LABORATORY DIRECTOR 06/27/22 09:09: D.S. Original Note: Risk of Aspiration Due to: Reduced Cognition Dysphasia Diet Status: Recommend patient UPGRADE to CHOPPED/AVANCED solids (NDD3). Continue with thin liquids pills whole with liquid. Liquid Consistency and Strategies for Safe Swallow: Liquid Intake Recommendation: Thin Liquid Intake Strategies: Small Sips No Straws Solid Food Consistency: Dietary Recommendations: Chopped/Advanced (NDD3) Additional Modifications to Solid Foods: Pt w/ mild oral phase dysphagia 2nd to current mental state. Oral phase characterized by prolonged, slow mastication pattern and pocketing of solid foods. Recommend DOWNGRADE to GROUND/MECH ALTERED (NDD2) solids at this time and continue on THIN liquids, pills WHOLE or CRUSHED in PUREE per pt's tolerance. Discussed with nursing staff on unit. Recommend total supervision, provide cues throughout meals as needed. Pt must be awake and alert for presentation of PO, minimize distractions during meals. Ensure pt is taking small bites and adequately chewing food before swallowing. Alternate solids and liquids to promote oral clearance. Oral cavity to be clear before taking more bites. Upright 90 degree position when eating and drinking. Diet order updated by PATHOLOGY LABORATORY DIRECTOR. Notified care team (MD, RN, RD) via [facility] Message. PATHOLOGY LABORATORY DIRECTOR will continue to follow. Oral Medication Intake: Whole with Liquid Please contact the pharmacy regarding appropriate crushable or liquid drug formulations that are available whenever modified delivery is recommended. Compensatory Strategies and Precautions to be Taken for Safe Swallow: Sitting Upright (90 deg) Double Swallow No Straw Small Bites and Sips Alternate Liquids/Solids Rate of Ingestion Change Avoid Specific Foods Supervision While Eating and Drinking for Safe Swallow: Total Supervision (1:1) Foods to Avoid: Hard to chew solids Swallowing Recommended Treatments: Compens. Strategy Educat. Recommendation for Speech: Inpatient Speech Therapy Pt seen this afternoon for toleration of NDD2 and possible upgrade. Pt observed to be impulsive w/ food and drink w/o cueing; stuffing mouth with food, introducing new PO before clearing oral cavity, long chain sips of water. Pt presented w/ immediate prolonged cough following swallow when these behaviors were observed. When provided with cues to take small bites/sips, slow rate of ingestion, and wait to introduce additional bites/sips until oral cavity is cleared, pt did not present with any s/s of aspiration. Pt observed to cough following chain sips when drinking from small water bottles tilting head back. When taking chain sips from cup, patient not observed to tilt back or present w/ s/s of aspiration. Recommend patient drink out of cup. Pt was agreeable to upgrade under the condition of having some reminders for safe eating strategies during PO. Recommend full 1-1 supervision at this time to provide cues listed above. Recommend UPGRADE at this time to NDD3 (chopped/advanced solids). If pt presenting w/ overt s/s of aspiration (constant throat clear, immediate cough following swallow) and is not able to tolerate upgrade, recommend downgrade to NDD2 (ground/mech altered) solids. PATHOLOGY LABORATORY DIRECTOR to continue to follow. Admissions Representative Clinican/Clinical Fellow: Yes: Lilliana Montenegro M.A., CF-PATHOLOGY LABORATORY DIRECTOR
[2022-06-24 21:44] VITALS: BP 133/75; PULSE 60; RESP 16; TEMP 36.6; O2SAT 93
[2022-06-24] MEDS: cloZAPine 100 MG TABLET PO (21:50)
[2022-06-24] MEDS: OLANZapine 10 MG TABLET PO (21:50)
[2022-06-24] MEDS: OLANZapine 5 MG TABLET PO (21:50)
[2022-06-24] MEDS: cloZAPine 25 MG TABLET 75 MG PO (21:50)
[2022-06-25 07:06] LABS: Neutrophils Absolute Auto 3.8 x10*3/uL (2.0-8.3); WBCANC 6.3 X10*3/uL
[2022-06-25 08:45] VITALS: BP 143/60; PULSE 73; RESP 16; TEMP 36.6; O2SAT 93
[2022-06-25] MEDS: Docusate Sodium 100 MG CAPSULE PO ×2 (08:54→20:13)
[2022-06-25] MEDS: LORazepam 1 MG TABLET PO ×4 (08:54→20:14)
[2022-06-25] MEDS: metFORMIN HCl ER 500 MG TAB.ER.24H PO (08:54)
[2022-06-25] MEDS: Sertraline HCL 50 MG TABLET 150 MG PO (08:54)
[2022-06-25] MEDS: Tamsulosin HCL 0.4 MG CAPSULE PO (08:54)
--- NOTE | 2022-06-25 09:53 | HO.PSYCHPN ---
Subjective Subjective Date of Service: 06/25/22 Reason For Visit: psychosis Subjective Notes: Conditional Voluntary Interim History: Pt up this morning, staring at breakfast. He did eat but minimal verbalization. Pt upgraded in diet as speech therapist recommendation. Pt not talking much unable to provide further details. Medication Compliance: Yes Review of Systems Review of Systems unable to obtain review of system Mental Status Exam Mental Status Exam Narrative: Appearance: wearing hospital gown, poor eye contact, in NAD Behavior: cooperative Psychomotor: retardation noted Speech:mumbles at times, delayed in response rate, non-spontaneous TP: linear TC: no overt psychosis, feeling off Affect: constricted SI: none expressed HI: none expressed VH/AH: none expressed Delusions: no overt delusional content noted or reported. Insight/judgment: fair x 2. Memory/cog: alert, oriented x 3. Diagnostics Vital Signs (24Hr): Vital Signs - 24 hr 06/24/22 21:44 Temperature 97.8 F Pulse Rate 60 Respiratory Rate 16 Blood Pressure 133/75 Pulse Oximetry 93 Oxygen Delivery Method Room Air BMI result Body Mass Index 32.1 Labs 06/20/22 10:25 06/20/22 05:20 Labs: Laboratory Results - last 48 hr 06/24/22 06/25/22 08:32 06:30 Absolute Neuts (auto) 3.8 POC Glucose 108 Imaging Radiology Impressions: ITS Impressions Chest X-Ray 06/18/22 12:00 IMPRESSION: * Lungs are hypoinflated and right diaphragm elevated. * No evidence of pneumonia or congestive heart failure. Medications Medications Current Medications Acetaminophen (Acetaminophen 325 Mg Tablet) 650 mg PO Q6H PRN PRN Reason: Headache/Pain Mild Scale (1-3) Last Admin: 06/18/22 20:27 Dose: 650 mg Al Hydroxide/Mg Hydroxide (Magnesium Hydrox/Alum Hydrox 30 Ml Oral.Susp) 30 ml PO Q6H PRN PRN Reason: Heartburn/Nausea Clozapine (Clozapine 100 Mg Tablet) 100 mg PO BEDTIME [facility] Last Admin: 06/24/22 21:50 Dose: 100 mg Clozapine (Clozapine 25 Mg Tablet) 75 mg PO BEDTIME [facility] Last Admin: 06/24/22 21:50 Dose: 75 mg Docusate Sodium (Docusate Sodium 100 Mg Capsule) 100 mg PO BID [facility] Last Admin: 06/25/22 08:54 Dose: 100 mg Guaifenesin (Guaifenesin 200 Mg/10 Ml 10 Ml Liquid) 10 ml PO Q4H PRN PRN Reason: productive cough Last Admin: 06/18/22 20:27 Dose: 10 ml Hydroxyzine HCl (Hydroxyzine Hcl 25 Mg Tablet) 25 mg PO Q6H PRN PRN Reason: Anxiety [place] Carbonate ([place] Carbonate 300 Mg Capsule) 600 mg PO BEDTIME [facility] Last Admin: 06/15/22 21:37 Dose: 600 mg Lorazepam (Lorazepam 1 Mg Tablet) 1 mg PO TID [facility] Last Admin: 06/25/22 08:54 Dose: 1 mg Magnesium Hydroxide (Milk Of Magnesia 30 Ml Oral.Susp) 30 ml PO DAILY PRN PRN Reason: Constipation Last Admin: 06/21/22 09:02 Dose: 30 ml Metformin HCl (Metformin Hcl Er 500 Mg Tab.Er.24h) 500 mg PO DAILY [facility] Last Admin: 06/25/22 08:54 Dose: 500 mg Nicotine Polacrilex (Nicotine Polacrilex 2 Mg Gum) 4 mg BUCCAL Q2H PRN PRN Reason: Nicotine Cravings Olanzapine (Olanzapine 10 Mg Tablet) 10 mg PO BEDTIME [facility] Last Admin: 06/24/22 21:50 Dose: 10 mg Olanzapine (Olanzapine 5 Mg Tablet) 5 mg PO TID PRN PRN Reason: agitation Last Admin: 06/24/22 21:50 Dose: 5 mg Sertraline HCl (Sertraline Hcl 50 Mg Tablet) 150 mg PO DAILY [facility] Last Admin: 06/25/22 08:54 Dose: 150 mg Tamsulosin HCl (Tamsulosin Hcl 0.4 Mg Capsule) 0.4 mg PO DAILY [facility] Last Admin: 06/25/22 08:54 Dose: 0.4 mg Trazodone HCl (Trazodone Hcl 50 Mg Tablet) 50 mg PO BEDTIME PRN PRN Reason: Insomnia Allergies Allergies Allergy/AdvReac Type Severity Reaction Status Date / Time No Known Allergies [NKA] Allergy Unknown NONE Verified 04/14/22 14:20 Assessment & Plan Assessment & Plan (1) Schizophrenia, catatonic: Status: Acute Code(s): 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 Tenorio is a 56 year-old male with hx of schizophrenia, stable for some years until he had declined in past 2-3 week. His [facility] heel caser contacted crisis as pt not verbal, appeared confused, not his baseline. Pt did start ibuprofen recently and in combination with lithium concern was potential lithium toxicity. [facility] provider noted jerk like movements which are not baseline. He did missed few doses prior to coming to the hospital. In the ED, lithium not toxic levels. However, it does seem some degree of underlying kidney disease with decrease creatinine clearance. Pt with s/s of catatonia including mutism, staring at wall, did improve once given ativan 2mg. He is on ativan 2mg po TID at home for years but may have missed some doses and in the ED ativan was ordered as PRN. Pt on clozaril but was restarted at 25mg po qhs given reports of pt missing more than 2 doses. He is currently on 50mg po qhs and will increase daily by 25mg. PLAN 1. Admit to M3, cv 15 minutes checks. 2. continue current medications. continue titration of clozaril 50mg po qhs today, 75mg po qhs tomorrow. 3. obtain collateral information 4. Aftercare planning 06/15 continue tx. 06/16 increase ativan 2mg po QID. continue clozaril titration 06/17: ativan increased from 2 mg TID to 2 mg QID today due to ongoing catatonia. 06/18: CXR no evidence of pneumonia or CHF. Monitor respiratory status. Continue psychiatric management. 06/19: Continue current tx plan. 06/20 lower ativan to 1mg po tid- pt appears more sedated than catatonic. .hypersalivation noted- ?rebound anticholigergic with lower dose of clozaril. Titrate clozaril to 125mg po qhs. Home dose was 250mg po qhs. 06/21 continue current tx. continue to monitor sedation, O2sat. 06/22: stable. no change in mgmt. 06/23: increase HS clozapine from 150 mg to 175 mg. slightly less PMR. 06/24: appears sedated midday. no increase in clozapine for today. continue current mgmt. 06/25 continue tx. Reason for contiued inpatient stay Substantial Risk for: inability to function Time Spent With Patient Time: Total time managing care of this patient today ____ minutes.
[2022-06-25 12:39] LABS: Glucose, Whole Blood 106 mg/dL (60-115)
--- NOTE | 2022-06-25 18:34 | PC.NURSE ---
PVR today at 1230= 60
[2022-06-25 20:11] VITALS: BP 135/74; PULSE 82; RESP 18; TEMP 36.6; O2SAT 96
[2022-06-25] MEDS: cloZAPine 25 MG TABLET 75 MG PO (20:13)
[2022-06-25] MEDS: cloZAPine 100 MG TABLET 200 MG PO (20:13)
[2022-06-25] MEDS: OLANZapine 5 MG TABLET PO (20:14)
[2022-06-25] MEDS: OLANZapine 10 MG TABLET PO (20:14)
[2022-06-26 08:38] LABS: Glucose, Whole Blood 113 mg/dL (60-115)
[2022-06-26 08:55] VITALS: BP 140/72; PULSE 71; RESP 18; TEMP 36.3; O2SAT 95
[2022-06-26] MEDS: LORazepam 1 MG TABLET PO ×3 (08:59→20:35)
[2022-06-26] MEDS: Docusate Sodium 100 MG CAPSULE PO ×2 (08:59→20:36)
[2022-06-26] MEDS: Sertraline HCL 50 MG TABLET 150 MG PO (08:59)
[2022-06-26] MEDS: Tamsulosin HCL 0.4 MG CAPSULE PO (08:59)
[2022-06-26] MEDS: Milk of Magnesia 30 ML ORAL.SUSP PO (09:00)
[2022-06-26] MEDS: metFORMIN HCl ER 500 MG TAB.ER.24H PO (09:00)
--- NOTE | 2022-06-26 20:09 | P.PNPSI_ITS ---
Subjective Subjective Date of Service: 06/26/22 Reason For Visit: psychosis Interim History: Pt up this morning, staring at breakfast. He did eat but minimal verbalization. Pt upgraded in diet as speech therapist recommendation. Pt not talking much unable to provide further details. Review of Systems Review of Systems unable to obtain review of system Mental Status Exam Mental Status Exam Narrative: Appearance: wearing hospital gown, poor eye contact, in NAD Behavior: cooperative Psychomotor: retardation noted Speech:mumbles at times, delayed in response rate, non-spontaneous TP: linear TC: no overt psychosis, feeling off Affect: constricted SI: none expressed HI: none expressed VH/AH: none expressed Delusions: no overt delusional content noted or reported. Insight/judgment: fair x 2. Memory/cog: alert, oriented x 3. Diagnostics Vital Signs (24Hr): Vital Signs - 24 hr 06/25/22 20:11 06/26/22 08:55 Temperature 97.8 F 97.4 F Pulse Rate 82 71 Respiratory Rate 18 18 Blood Pressure 135/74 140/72 H Pulse Oximetry 96 95 Oxygen Delivery Method Room Air Room Air BMI result Body Mass Index 32.1 Labs 06/20/22 10:25 06/20/22 05:20 Labs: Laboratory Results - last 48 hr 06/25/22 06/25/22 06/26/22 06:30 08:39 08:25 Absolute Neuts (auto) 3.8 POC Glucose 106 113 Imaging Radiology Impressions: ITS Impressions Chest X-Ray 06/18/22 12:00 IMPRESSION: * Lungs are hypoinflated and right diaphragm elevated. * No evidence of pneumonia or congestive heart failure. Medications Medications Current Medications Acetaminophen (Acetaminophen 325 Mg Tablet) 650 mg PO Q6H PRN PRN Reason: Headache/Pain Mild Scale (1-3) Last Admin: 06/18/22 20:27 Dose: 650 mg Al Hydroxide/Mg Hydroxide (Magnesium Hydrox/Alum Hydrox 30 Ml Oral.Susp) 30 ml PO Q6H PRN PRN Reason: Heartburn/Nausea Clozapine (Clozapine 25 Mg Tablet) 250 mg PO BEDTIME [facility] Docusate Sodium (Docusate Sodium 100 Mg Capsule) 100 mg PO BID [facility] Last Admin: 06/26/22 08:59 Dose: 100 mg Guaifenesin (Guaifenesin 200 Mg/10 Ml 10 Ml Liquid) 10 ml PO Q4H PRN PRN Reason: productive cough Last Admin: 06/18/22 20:27 Dose: 10 ml Hydroxyzine HCl (Hydroxyzine Hcl 25 Mg Tablet) 25 mg PO Q6H PRN PRN Reason: Anxiety [place] Carbonate ([place] Carbonate 300 Mg Capsule) 600 mg PO BEDTIME [facility] Last Admin: 06/15/22 21:37 Dose: 600 mg Lorazepam (Lorazepam 1 Mg Tablet) 1 mg PO TID [facility] Last Admin: 06/26/22 15:51 Dose: 1 mg Magnesium Hydroxide (Milk Of Magnesia 30 Ml Oral.Susp) 30 ml PO DAILY PRN PRN Reason: Constipation Last Admin: 06/26/22 09:00 Dose: 30 ml Metformin HCl (Metformin Hcl Er 500 Mg Tab.Er.24h) 500 mg PO DAILY [facility] Last Admin: 06/26/22 09:00 Dose: 500 mg Nicotine Polacrilex (Nicotine Polacrilex 2 Mg Gum) 4 mg BUCCAL Q2H PRN PRN Reason: Nicotine Cravings Olanzapine (Olanzapine 10 Mg Tablet) 10 mg PO BEDTIME [facility] Last Admin: 06/25/22 20:14 Dose: 10 mg Olanzapine (Olanzapine 5 Mg Tablet) 5 mg PO TID PRN PRN Reason: agitation Last Admin: 06/25/22 20:14 Dose: 5 mg Sertraline HCl (Sertraline Hcl 50 Mg Tablet) 150 mg PO DAILY [facility] Last Admin: 06/26/22 08:59 Dose: 150 mg Tamsulosin HCl (Tamsulosin Hcl 0.4 Mg Capsule) 0.4 mg PO DAILY [facility] Last Admin: 06/26/22 08:59 Dose: 0.4 mg Trazodone HCl (Trazodone Hcl 50 Mg Tablet) 50 mg PO BEDTIME PRN PRN Reason: Insomnia Allergies Allergies Allergy/AdvReac Type Severity Reaction Status Date / Time No Known Allergies [NKA] Allergy Unknown NONE Verified 04/14/22 14:20 Assessment & Plan Assessment & Plan (1) Schizophrenia, catatonic: Status: Acute Code(s): 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 Tenorio is a 56 year-old male with hx of schizophrenia, stable for some years until he had declined in past 2-3 week. His [facility] immigration case manager contacted crisis as pt not verbal, appeared confused, not his baseline. Pt did start ibuprofen recently and in combination with lithium concern was potential lithium toxicity. CHD provider noted jerk like movements which are not baseline. He did missed few doses prior to coming to the hospital. In the ED, lithium not toxic levels. However, it does seem some degree of underlying kidney disease with decrease creatinine clearance. Pt with s/s of catatonia including mutism, staring at wall, did improve once given ativan 2mg. He is on ativan 2mg po TID at home for years but may have missed some doses and in the ED ativan was ordered as PRN. Pt on clozaril but was restarted at 25mg po qhs given reports of pt missing more than 2 doses. He is currently on 50mg po qhs and will increase daily by 25mg. PLAN 1. Admit to M3, cv 15 minutes checks. 2. continue current medications. continue titration of clozaril 50mg po qhs today, 75mg po qhs tomorrow. 3. obtain collateral information 4. Aftercare planning 06/15 continue tx. 06/16 increase ativan 2mg po QID. continue clozaril titration 06/17: ativan increased from 2 mg TID to 2 mg QID today due to ongoing catatonia. 06/18: CXR no evidence of pneumonia or CHF. Monitor respiratory status. Continue psychiatric management. 06/19: Continue current tx plan. 06/20 lower ativan to 1mg po tid- pt appears more sedated than catatonic. .hypersalivation noted- ?rebound anticholigergic with lower dose of clozaril. Titrate clozaril to 125mg po qhs. Home dose was 250mg po qhs. 06/21 continue current tx. continue to monitor sedation, O2sat. 06/22: stable. no change in mgmt. 06/23: increase HS clozapine from 150 mg to 175 mg. slightly less PMR. 06/24: appears sedated midday. no increase in clozapine for today. continue current mgmt. 06/25 continue tx. 06/26 did give extra dose of ativan with some effect. Reason for contiued inpatient stay Substantial Risk for: inability to function Time Spent With Patient Time: Total time managing care of this patient today ____ minutes.
[2022-06-26 20:30] VITALS: BP 121/67; PULSE 76; RESP 16; TEMP 36.6; O2SAT 95
[2022-06-26] MEDS: cloZAPine 200 MG, cloZAPine 50 MG 250 MG PO (20:36)
[2022-06-26] MEDS: OLANZapine 10 MG TABLET PO (20:36)
[2022-06-27 08:00] VITALS: BP 126/67; PULSE 95; TEMP 36.6; O2SAT 95
[2022-06-27 08:04] LABS: Glucose, Whole Blood 110 mg/dL (60-115)
[2022-06-27] MEDS: Sertraline HCL 50 MG TABLET 150 MG PO (09:08)
[2022-06-27] MEDS: LORazepam 1 MG TABLET PO ×3 (09:09→20:52)
[2022-06-27] MEDS: Tamsulosin HCL 0.4 MG CAPSULE PO (09:09)
[2022-06-27] MEDS: metFORMIN HCl ER 500 MG TAB.ER.24H PO (09:09)
[2022-06-27] MEDS: Docusate Sodium 100 MG CAPSULE PO ×2 (09:09→20:53)
--- NOTE | 2022-06-27 13:37 | P.PNPSI_ITS ---
Subjective Subjective Date of Service: 06/27/22 Reason For Visit: psychosis Subjective Notes: Conditional Voluntary Interim History: Pt more visible today. He showered and has been able to feed himself. However, continues minimally verbal. When approached, pt states I'm good. Any attempts to ask questions, pt was mute. No waxy flexbility. Pt slept through the night. Medication Compliance: Yes Side effects from medications: No Attending Groups: Yes Review of Systems Review of Systems unable to obtain review of system Mental Status Exam Mental Status Exam Narrative: Appearance: wearing hospital gown, poor eye contact, in NAD Behavior: cooperative Psychomotor: retardation noted Speech:mumbles at times, delayed in response rate, non-spontaneous TP: linear TC: no overt psychosis, feeling off Affect: constricted SI: none expressed HI: none expressed VH/AH: none expressed Delusions: no overt delusional content noted or reported. Insight/judgment: fair x 2. Memory/cog: alert, oriented x 3. Diagnostics Vital Signs (24Hr): Vital Signs - 24 hr 06/26/22 20:30 06/27/22 08:00 Temperature 97.9 F 97.9 F Pulse Rate 76 95 Respiratory Rate 16 Blood Pressure 121/67 126/67 Pulse Oximetry 95 95 Oxygen Delivery Method Room Air Room Air BMI result Body Mass Index 32.1 Labs 06/20/22 10:25 06/20/22 05:20 Labs: Laboratory Results - last 48 hr 06/26/22 06/27/22 08:25 07:55 POC Glucose 113 110 Imaging Radiology Impressions: ITS Impressions Chest X-Ray 06/18/22 12:00 IMPRESSION: * Lungs are hypoinflated and right diaphragm elevated. * No evidence of pneumonia or congestive heart failure. KUB X-Ray 06/26/22 19:04 IMPRESSION: 1. Nonobstructive bowel gas pattern with a large colonic stool burden predominantly in the ascending colon and splenic flexure. Medications Medications Current Medications Acetaminophen (Acetaminophen 325 Mg Tablet) 650 mg PO Q6H PRN PRN Reason: Headache/Pain Mild Scale (1-3) Last Admin: 06/18/22 20:27 Dose: 650 mg Al Hydroxide/Mg Hydroxide (Magnesium Hydrox/Alum Hydrox 30 Ml Oral.Susp) 30 ml PO Q6H PRN PRN Reason: Heartburn/Nausea Clozapine 200 mg/ Clozapine 50 (mg) 250 mg PO BEDTIME [facility] Last Admin: 06/26/22 20:36 Dose: 250 mg Docusate Sodium (Docusate Sodium 100 Mg Capsule) 100 mg PO BID [facility] Last Admin: 06/27/22 09:09 Dose: 100 mg Guaifenesin (Guaifenesin 200 Mg/10 Ml 10 Ml Liquid) 10 ml PO Q4H PRN PRN Reason: productive cough Last Admin: 06/18/22 20:27 Dose: 10 ml Hydroxyzine HCl (Hydroxyzine Hcl 25 Mg Tablet) 25 mg PO Q6H PRN PRN Reason: Anxiety [place] Carbonate ([place] Carbonate 300 Mg Capsule) 600 mg PO BEDTIME [facility] Last Admin: 06/26/22 20:41 Dose: Not Given Lorazepam (Lorazepam 1 Mg Tablet) 1 mg PO TID [facility] Last Admin: 06/27/22 09:09 Dose: 1 mg Magnesium Hydroxide (Milk Of Magnesia 30 Ml Oral.Susp) 30 ml PO DAILY PRN PRN Reason: Constipation Last Admin: 06/26/22 09:00 Dose: 30 ml Metformin HCl (Metformin Hcl Er 500 Mg Tab.Er.24h) 500 mg PO DAILY [facility] Last Admin: 06/27/22 09:09 Dose: 500 mg Nicotine Polacrilex (Nicotine Polacrilex 2 Mg Gum) 4 mg BUCCAL Q2H PRN PRN Reason: Nicotine Cravings Olanzapine (Olanzapine 10 Mg Tablet) 10 mg PO BEDTIME [facility] Last Admin: 06/26/22 20:36 Dose: 10 mg Olanzapine (Olanzapine 5 Mg Tablet) 5 mg PO TID PRN PRN Reason: agitation Last Admin: 06/25/22 20:14 Dose: 5 mg Sertraline HCl (Sertraline Hcl 50 Mg Tablet) 150 mg PO DAILY [facility] Last Admin: 06/27/22 09:08 Dose: 150 mg Tamsulosin HCl (Tamsulosin Hcl 0.4 Mg Capsule) 0.4 mg PO DAILY [facility] Last Admin: 06/27/22 09:09 Dose: 0.4 mg Trazodone HCl (Trazodone Hcl 50 Mg Tablet) 50 mg PO BEDTIME PRN PRN Reason: Insomnia Allergies Allergies Allergy/AdvReac Type Severity Reaction Status Date / Time No Known Allergies [NKA] Allergy Unknown NONE Verified 04/14/22 14:20 Assessment & Plan Assessment & Plan (1) Schizophrenia, catatonic: Status: Acute Code(s): 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 Tenorio is a 56 year-old male with hx of schizophrenia, stable for some years until he had declined in past 2-3 week. 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 Pt did start ibuprofen recently and in combination with lithium concern was potential lithium toxicity. [facility] provider noted jerk like movements which are not baseline. He did missed few doses prior to coming to the hospital. In the ED, lithium not toxic levels. However, it does seem some degree of underlying kidney disease with decrease creatinine clearance. Pt with s/s of catatonia including mutism, staring at wa ll, did improve once given ativan 2mg. He is on ativan 2mg po TID at home for years but may have missed some doses and in the ED ativan was ordered as PRN. Pt on clozaril but was restarted at 25mg po qhs given reports of pt missing more than 2 doses. He is currently on 50mg po qhs and will increase daily by 25mg. PLAN 1. Admit to M3, cv 15 minutes checks. 2. continue current medications. continue titration of clozaril 50mg po qhs today, 75mg po qhs tomorrow. 3. obtain collateral information 4. Aftercare planning 06/15 continue tx. 06/16 increase ativan 2mg po QID. continue clozaril titration 06/17: ativan increased from 2 mg TID to 2 mg QID today due to ongoing catatonia. 06/18: CXR no evidence of pneumonia or CHF. Monitor respiratory status. Continue psychiatric management. 06/19: Continue current tx plan. 06/20 lower ativan to 1mg po tid- pt appears more sedated than catatonic. .hy persalivation noted- ?rebound anticholigergic with lower dose of clozaril. Titrate clozaril to 125mg po qhs. Home dose was 250mg po qhs. 06/21 continue current tx. continue to monitor sedation, O2sat. 06/22: stable. no change in mgmt. 06/23: increase HS clozapine from 150 mg to 175 mg. slightly less PMR. 06/24: appears sedated midday. no increase in clozapine for today. continue current mgmt. 06/25 continue tx. 4/2 did give extra dose of ativan with some effect. /3 continue tx. may increase ativan as pt more alert but mute and staring. Reason for contiued inpatient stay Substantial Risk for: inability to function Time Spent With Patient Time: Total time managing care of this patient today ____ minutes.
--- NOTE | 2022-06-27 15:18 | MHC.SLORD ---
Speech Language Pathology Order Status: Attempted to see pt for dysphagia treatment, pt refused to participate, laying back down to sleep. Per RN, pt tolerated pills with water, is tolerating textures, but with limited PO intake. RN also reported pt is less interactive than he was last week. PRODUCTION CHECKER will continue to follow.
[2022-06-27 20:30] VITALS: BP 129/74; PULSE 72; RESP 16; TEMP 36.4; O2SAT 96
[2022-06-27] MEDS: Lithium Carbonate 300 MG CAPSULE 600 MG PO (20:52)
[2022-06-27] MEDS: cloZAPine 200 MG, cloZAPine 50 MG 250 MG PO (20:53)
[2022-06-27] MEDS: OLANZapine 10 MG TABLET PO (20:53)
[2022-06-28 08:45] VITALS: BP 126/78; PULSE 88; RESP 18; TEMP 36.7; O2SAT 94
[2022-06-28 08:47] LABS: Glucose, Whole Blood 115 mg/dL (60-115)
[2022-06-28] MEDS: Docusate Sodium 100 MG CAPSULE PO ×2 (09:18→20:07)
[2022-06-28] MEDS: Tamsulosin HCL 0.4 MG CAPSULE PO (09:18)
[2022-06-28] MEDS: Sertraline HCL 50 MG TABLET 150 MG PO (09:18)
[2022-06-28] MEDS: metFORMIN HCl ER 500 MG TAB.ER.24H PO (09:18)
[2022-06-28] MEDS: LORazepam 1 MG TABLET PO ×3 (09:19→20:07)
--- NOTE | 2022-06-28 09:31 | P.PNPSI_ITS ---
Subjective Subjective Date of Service: 06/28/22 Reason For Visit: psychosis Subjective Notes: Conditional Voluntary Interim History: more spontaneous vocalization, pt up most of the day, still significantly mute. No SI/HI. He eats on his own, continues on one to one for unsteady gait and AMS. No behavioral concerns. Pt appears to have sleep apnea but no sleep study. Medication Compliance: Yes Review of Systems Review of Systems unable to obtain review of system Mental Status Exam Mental Status Exam Narrative: Appearance: wearing hospital gown, poor eye contact, in NAD Behavior: cooperative Psychomotor: retardation noted Speech:mumbles at times, delayed in response rate, non-spontaneous TP: linear TC: no overt psychosis, feeling off Affect: constricted SI: none expressed HI: none expressed VH/AH: none expressed Delusions: no overt delusional content noted or reported. Insight/judgment: fair x 2. Memory/cog: alert, oriented x 3. Diagnostics Vital Signs (24Hr): Vital Signs - 24 hr 06/27/22 20:30 Temperature 97.6 F Pulse Rate 72 Respiratory Rate 16 Blood Pressure 129/74 Pulse Oximetry 96 Oxygen Delivery Method Room Air BMI result Body Mass Index 32.1 Labs 06/20/22 10:25 06/20/22 05:20 Labs: Laboratory Results - last 48 hr 06/27/22 06/28/22 07:55 08:34 POC Glucose 110 115 Imaging Radiology Impressions: ITS Impressions Chest X-Ray 06/18/22 12:00 IMPRESSION: * Lungs are hypoinflated and right diaphragm elevated. * No evidence of pneumonia or congestive heart failure. KUB X-Ray 06/26/22 19:04 IMPRESSION: 1. Nonobstructive bowel gas pattern with a large colonic stool burden predominantly in the ascending colon and splenic flexure. Medications Medications Current Medications Acetaminophen (Acetaminophen 325 Mg Tablet) 650 mg PO Q6H PRN PRN Reason: Headache/Pain Mild Scale (1-3) Last Admin: 06/18/22 20:27 Dose: 650 mg Al Hydroxide/Mg Hydroxide (Magnesium Hydrox/Alum Hydrox 30 Ml Oral.Susp) 30 ml PO Q6H PRN PRN Reason: Heartburn/Nausea Bisacodyl (Bisacodyl 5 Mg Tablet.Dr) 10 mg PO ONCE ONE Stop: 06/28/22 09:25 Clozapine 200 mg/ Clozapine 50 (mg) 250 mg PO BEDTIME [facility] Last Admin: 06/27/22 20:53 Dose: 250 mg Docusate Sodium (Docusate Sodium 100 Mg Capsule) 100 mg PO BID [facility] Last Admin: 06/28/22 09:18 Dose: 100 mg Guaifenesin (Guaifenesin 200 Mg/10 Ml 10 Ml Liquid) 10 ml PO Q4H PRN PRN Reason: productive cough Last Admin: 06/18/22 20:27 Dose: 10 ml Hydroxyzine HCl (Hydroxyzine Hcl 25 Mg Tablet) 25 mg PO Q6H PRN PRN Reason: Anxiety [place] Carbonate ([place] Carbonate 300 Mg Capsule) 600 mg PO BEDTIME [facility] Last Admin: 06/27/22 20:52 Dose: 600 mg Lorazepam (Lorazepam 1 Mg Tablet) 1 mg PO TID [facility] Last Admin: 06/28/22 09:19 Dose: 1 mg Magnesium Hydroxide (Milk Of Magnesia 30 Ml Oral.Susp) 30 ml PO DAILY PRN PRN Reason: Constipation Last Admin: 06/26/22 09:00 Dose: 30 ml Metformin HCl (Metformin Hcl Er 500 Mg Tab.Er.24h) 500 mg PO DAILY [facility] Last Admin: 06/28/22 09:18 Dose: 500 mg Nicotine Polacrilex (Nicotine Polacrilex 2 Mg Gum) 4 mg BUCCAL Q2H PRN PRN Reason: Nicotine Cravings Olanzapine (Olanzapine 10 Mg Tablet) 10 mg PO BEDTIME [facility] Last Admin: 06/27/22 20:53 Dose: 10 mg Olanzapine (Olanzapine 5 Mg Tablet) 5 mg PO TID PRN PRN Reason: agitation Last Admin: 06/25/22 20:14 Dose: 5 mg Senna (Sennosides 8.6 Mg Tablet) 17.2 mg PO BID [facility] Sertraline HCl (Sertraline Hcl 50 Mg Tablet) 150 mg PO DAILY [facility] Last Admin: 06/28/22 09:18 Dose: 150 mg Tamsulosin HCl (Tamsulosin Hcl 0.4 Mg Capsule) 0.4 mg PO DAILY [facility] Last Admin: 06/28/22 09:18 Dose: 0.4 mg Trazodone HCl (Trazodone Hcl 50 Mg Tablet) 50 mg PO BEDTIME PRN PRN Reason: Insomnia Allergies Allergies Allergy/AdvReac Type Severity Reaction Status Date / Time No Known Allergies [NKA] Allergy Unknown NONE Verified 04/14/22 14:20 Assessment & Plan Assessment & Plan (1) Schizophrenia, catatonic: Status: Acute Code(s): 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 Tenorio is a 56 year-old male with hx of schizophrenia, stable for some years until he had declined in past 2-3 week. 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 Pt did start ibuprofen recently and in combination with lithium concern was potential lithium toxicity. [facility] provider noted jerk like movements which are not baseline. He did missed few doses prior to coming to the hospital. In the ED, lithium not toxic levels. However, it does seem some degree of underlying kidney disease with decrease creatinine clearance. Pt with s/s of catatonia including mutism, staring at wall , did improve once given ativan 2mg. He is on ativan 2mg po TID at home for years but may have missed some doses and in the ED ativan was ordered as PRN. Pt on clozaril but was restarted at 25mg po qhs given reports of pt missing more than 2 doses. He is currently on 50mg po qhs and will increase daily by 25mg. PLAN 1. Admit to M3, cv 15 minutes checks. 2. continue current medications. continue titration of clozaril 50mg po qhs today, 75mg po qhs tomorrow. 3. obtain collateral information 4. Aftercare planning 06/15 continue tx. 06/16 increase ativan 2mg po QID. continue clozaril titration 06/17: ativan increased from 2 mg TID to 2 mg QID today due to ongoing catatonia. 06/18: CXR no evidence of pneumonia or CHF. Monitor respiratory status. Continue psychiatric management. 06/19: Continue current tx plan. 06/20 lower ativan to 1mg po tid- pt appears more sedated than catatonic. .hype rsalivation noted- ?rebound anticholigergic with lower dose of clozaril. Titrate clozaril to 125mg po qhs. Home dose was 250mg po qhs. 06/21 continue current tx. continue to monitor sedation, O2sat. 06/22: stable. no change in mgmt. 06/23: increase HS clozapine from 150 mg to 175 mg. slightly less PMR. 06/24: appears sedated midday. no increase in clozapine for today. continue current mgmt. 06/25 continue tx. 06/26 did give extra dose of ativan with some effect. 06/27 continue tx. may increase ativan as pt more alert but mute and staring. 06/28 continue tx. constipation on KUB. Added senna to colace, ducolax given, may consider enema. Reason for contiued inpatient stay Substantial Risk for: inability to function Time Spent With Patient Time: Total time managing care of this patient today ____ minutes.
[2022-06-28] MEDS: bisacodyL 5 MG TABLET.DR 10 MG PO (11:22)
[2022-06-28 19:50] VITALS: BP 134/74; PULSE 78; RESP 16; TEMP 36.6; O2SAT 93
[2022-06-28] MEDS: Sennosides 8.6 MG TABLET 17.2 MG PO (20:07)
[2022-06-28] MEDS: cloZAPine 200 MG, cloZAPine 50 MG 250 MG PO (20:07)
[2022-06-28] MEDS: OLANZapine 10 MG TABLET PO (20:07)
[2022-06-28] MEDS: Lithium Carbonate 300 MG CAPSULE 600 MG PO (20:07)
--- NOTE | 2022-06-28 21:45 | HO.PSYCHPN ---
Subjective Subjective Reason For Visit: psychosis Diagnostics Vital Signs (24Hr): Vital Signs - 24 hr 06/28/22 08:45 06/28/22 19:50 Temperature 98.1 F 97.9 F Pulse Rate 88 78 Respiratory Rate 18 16 Blood Pressure 126/78 134/74 Pulse Oximetry 94 93 Oxygen Delivery Method Room Air Room Air BMI result Body Mass Index 32.1 Labs 06/20/22 10:25 06/20/22 05:20 Labs: Laboratory Results - last 48 hr 06/27/22 06/28/22 07:55 08:34 POC Glucose 110 115 Imaging Radiology Impressions: ITS Impressions Chest X-Ray 06/18/22 12:00 IMPRESSION: * Lungs are hypoinflated and right diaphragm elevated. * No evidence of pneumonia or congestive heart failure. KUB X-Ray 06/26/22 19:04 IMPRESSION: 1. Nonobstructive bowel gas pattern with a large colonic stool burden predominantly in the ascending colon and splenic flexure. Medications Medications Current Medications Acetaminophen (Acetaminophen 325 Mg Tablet) 650 mg PO Q6H PRN PRN Reason: Headache/Pain Mild Scale (1-3) Last Admin: 06/18/22 20:27 Dose: 650 mg Al Hydroxide/Mg Hydroxide (Magnesium Hydrox/Alum Hydrox 30 Ml Oral.Susp) 30 ml PO Q6H PRN PRN Reason: Heartburn/Nausea Clozapine 200 mg/ Clozapine 50 (mg) 250 mg PO BEDTIME [facility] Last Admin: 06/28/22 20:07 Dose: 250 mg Docusate Sodium (Docusate Sodium 100 Mg Capsule) 100 mg PO BID [facility] Last Admin: 06/28/22 20:07 Dose: 100 mg Guaifenesin (Guaifenesin 200 Mg/10 Ml 10 Ml Liquid) 10 ml PO Q4H PRN PRN Reason: productive cough Last Admin: 06/18/22 20:27 Dose: 10 ml Hydroxyzine HCl (Hydroxyzine Hcl 25 Mg Tablet) 25 mg PO Q6H PRN PRN Reason: Anxiety [place] Carbonate ([place] Carbonate 300 Mg Capsule) 600 mg PO BEDTIME [facility] Last Admin: 06/28/22 20:07 Dose: 600 mg Lorazepam (Lorazepam 1 Mg Tablet) 1 mg PO TID [facility] Last Admin: 06/28/22 20:07 Dose: 1 mg Magnesium Hydroxide (Milk Of Magnesia 30 Ml Oral.Susp) 30 ml PO DAILY PRN PRN Reason: Constipation Last Admin: 06/26/22 09:00 Dose: 30 ml Metformin HCl (Metformin Hcl Er 500 Mg Tab.Er.24h) 500 mg PO DAILY [facility] Last Admin: 06/28/22 09:18 Dose: 500 mg Nicotine Polacrilex (Nicotine Polacrilex 2 Mg Gum) 4 mg BUCCAL Q2H PRN PRN Reason: Nicotine Cravings Olanzapine (Olanzapine 10 Mg Tablet) 10 mg PO BEDTIME [facility] Last Admin: 06/28/22 20:07 Dose: 10 mg Olanzapine (Olanzapine 5 Mg Tablet) 5 mg PO TID PRN PRN Reason: agitation Last Admin: 06/25/22 20:14 Dose: 5 mg Senna (Sennosides 8.6 Mg Tablet) 17.2 mg PO BID [facility] Last Admin: 06/28/22 20:07 Dose: 17.2 mg Sertraline HCl (Sertraline Hcl 50 Mg Tablet) 150 mg PO DAILY [facility] Last Admin: 06/28/22 09:18 Dose: 150 mg Tamsulosin HCl (Tamsulosin Hcl 0.4 Mg Capsule) 0.4 mg PO DAILY [facility] Last Admin: 06/28/22 09:18 Dose: 0.4 mg Trazodone HCl (Trazodone Hcl 50 Mg Tablet) 50 mg PO BEDTIME PRN PRN Reason: Insomnia Allergies Allergies Allergy/AdvReac Type Severity Reaction Status Date / Time No Known Allergies [NKA] Allergy Unknown NONE Verified 04/14/22 14:20 Assessment & Plan Assessment & Plan (1) Schizophrenia, catatonic: Status: Acute Code(s): 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 Tenorio is a 56 year-old male with hx of schizophrenia, stable for some years until he had declined in past 2-3 week. 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 Pt did start ibuprofen recently and in combination with lithium concern was potential lithium toxicity. [facility] provider noted jerk like movements which are not baseline. He did missed few doses prior to coming to the hospital. In the ED, lithium not toxic levels. However, it does seem some degree of underlying kidney disease with decrease creatinine clearance. Pt with s/s of catatonia including mutism, staring at wall, did improve once given ativan 2mg. He is on ativan 2mg po TID at home for years but may have missed some doses and in the ED ativan was ordered as PRN. Pt on clozaril but was restarted at 25mg po qhs given reports of pt missing more than 2 doses. He is currently on 50mg po qhs and will increase daily by 25mg. PLAN 1. Admit to M3, cv 15 minutes checks. 2. continue current medications. continue titration of clozaril 50mg po qhs today, 75mg po qhs tomorrow. 3. obtain collateral information 4. Aftercare planning 06/15 continue tx. 06/16 increase ativan 2mg po QID. continue clozaril titration 06/17: ativan increased from 2 mg TID to 2 mg QID today due to ongoing catatonia. 06/18: CXR no evidence of pneumonia or CHF. Monitor respiratory status. Continue psychiatric management. 06/19: Continue current tx plan. 06/20 lower ativan to 1mg po tid- pt appears more sedated than catatonic. .hypersalivation noted- ?rebound anticholigergic with lower dose of clozaril. Titrate clozaril to 125mg po qhs. Home dose was 250mg po qhs. 06/21 continue current tx. continue to monitor sedation, O2sat. 06/22: stable. no change in mgmt. 06/23: increase HS clozapine from 150 mg to 175 mg. slightly less PMR. 06/24: appears sedated midday. no increase in clozapine for today. continue current mgmt. 06/25 continue tx. 06/26 did give extra dose of ativan with some effect. 06/27 continue tx. may increase ativan as pt more alert but mute and staring. Time Spent With Patient Time: Total time managing care of this patient today ____ minutes.
[2022-06-29 08:56] LABS: Glucose, Whole Blood 112 mg/dL (60-115)
[2022-06-29] MEDS: LORazepam 1 MG TABLET PO ×3 (09:39→21:44)
[2022-06-29] MEDS: Docusate Sodium 100 MG CAPSULE PO ×2 (09:39→21:44)
[2022-06-29] MEDS: Sertraline HCL 50 MG TABLET 150 MG PO (09:39)
[2022-06-29] MEDS: Sennosides 8.6 MG TABLET 17.2 MG PO ×2 (09:39→21:44)
[2022-06-29] MEDS: Tamsulosin HCL 0.4 MG CAPSULE PO (09:39)
[2022-06-29] MEDS: metFORMIN HCl ER 500 MG TAB.ER.24H PO (09:39)
[2022-06-29 10:03] VITALS: BP 126/62; PULSE 79; RESP 16; TEMP 36.3; O2SAT 94
[2022-06-29 10:23] LABS: Creatinine Clr Calc Pharmacy 76.8; Estimated Glomerular Filt Rate > 60
[2022-06-29] MEDS: Milk of Magnesia 30 ML ORAL.SUSP PO (10:49)
--- NOTE | 2022-06-29 14:25 | MHC.SLORD ---
Addendum entered and electronically signed by Nona Whitmore MA, CCC-[employer] TE[employer] 06/29/22 17:56: D.S. Original Note: Speech Language Pathology Order Status: [employer] TE[employer]ER attempted to see pt this afternoon following lunch. Pt in/out of sleep, agreeable to future visit by H[employer] TE[employer]ER during a meal. Per check-in w/ RN, pt tolerating small cup sips of liquid then presented w/ coughing 1/2 [address] through cup. Pt was reportedly cued to slow down and take small sips. Pt reports no difficulty swallowing or w/ current diet. Recommend continued 1-1 supervision during meals, to monitor for s/s of aspiration and provide cueing. Cue to take small bites/sips, slow rate of ingestion, and wait to introduce additional bites/sips until oral cavity is cleared. H[employer] TE[employer]ER to continue to follow, to visit during meal if possible.
--- NOTE | 2022-06-29 15:43 | HO.PSYCHPN ---
Subjective Subjective Date of Service: 06/29/22 Reason For Visit: psychosis Interim History: up and about the unit. PMR, long latency of speech. declines more aggressive mgmt of bowels. no other complaints or requests. per staff, flat, minimal interactions. visible, safe. no BM for nearly a week. slept well. Mental Status Exam Mental Status Exam Narrative: Appearance: street clothes, poor eye contact, in NAD Behavior: cooperative Psychomotor: retardation noted Speech: delayed in response rate, non-spontaneous TP: linear TC: no overt psychosis Affect: flat SI: none expressed HI: none expressed VH/AH: none expressed Delusions: no overt delusional content noted or reported. Insight/judgment: fair x 2. Memory/cog: alert, oriented x 3. Diagnostics Vital Signs (24Hr): Vital Signs - 24 hr 06/28/22 19:50 06/29/22 10:03 Temperature 97.9 F 97.4 F Pulse Rate 78 79 Respiratory Rate 16 16 Blood Pressure 134/74 126/62 Pulse Oximetry 93 94 Oxygen Delivery Method Room Air Room Air BMI result Body Mass Index 32.1 Labs 06/20/22 10:25 06/29/22 08:47 Labs: Laboratory Results - last 48 hr 06/28/22 06/29/22 06/29/22 08:34 08:47 08:50 Creatinine 1.20 Estim Creat Clear Calc 76.8 Estimated GFR > 60 POC Glucose 115 112 Imaging Radiology Impressions: ITS Impressions Chest X-Ray 06/18/22 12:00 IMPRESSION: * Lungs are hypoinflated and right diaphragm elevated. * No evidence of pneumonia or congestive heart failure. KUB X-Ray 06/26/22 19:04 IMPRESSION: 1. Nonobstructive bowel gas pattern with a large colonic stool burden predominantly in the ascending colon and splenic flexure. Medications Medications Current Medications Acetaminophen (Acetaminophen 325 Mg Tablet) 650 mg PO Q6H PRN PRN Reason: Headache/Pain Mild Scale (1-3) Last Admin: 06/18/22 20:27 Dose: 650 mg Al Hydroxide/Mg Hydroxide (Magnesium Hydrox/Alum Hydrox 30 Ml Oral.Susp) 30 ml PO Q6H PRN PRN Reason: Heartburn/Nausea Clozapine 200 mg/ Clozapine 50 (mg) 250 mg PO BEDTIME [facility] Last Admin: 06/28/22 20:07 Dose: 250 mg Docusate Sodium (Docusate Sodium 100 Mg Capsule) 100 mg PO BID [facility] Last Admin: 06/29/22 09:39 Dose: 100 mg Guaifenesin (Guaifenesin 200 Mg/10 Ml 10 Ml Liquid) 10 ml PO Q4H PRN PRN Reason: productive cough Last Admin: 06/18/22 20:27 Dose: 10 ml Hydroxyzine HCl (Hydroxyzine Hcl 25 Mg Tablet) 25 mg PO Q6H PRN PRN Reason: Anxiety [place] Carbonate ([place] Carbonate 300 Mg Capsule) 600 mg PO BEDTIME [facility] Last Admin: 06/28/22 20:07 Dose: 600 mg Lorazepam (Lorazepam 1 Mg Tablet) 1 mg PO TID [facility] Last Admin: 06/29/22 15:01 Dose: 1 mg Magnesium Hydroxide (Milk Of Magnesia 30 Ml Oral.Susp) 30 ml PO DAILY PRN PRN Reason: Constipation Last Admin: 06/29/22 10:49 Dose: 30 ml Metformin HCl (Metformin Hcl Er 500 Mg Tab.Er.24h) 500 mg PO DAILY [facility] Last Admin: 06/29/22 09:39 Dose: 500 mg Nicotine Polacrilex (Nicotine Polacrilex 2 Mg Gum) 4 mg BUCCAL Q2H PRN PRN Reason: Nicotine Cravings Olanzapine (Olanzapine 10 Mg Tablet) 10 mg PO BEDTIME [facility] Last Admin: 06/28/22 20:07 Dose: 10 mg Olanzapine (Olanzapine 5 Mg Tablet) 5 mg PO TID PRN PRN Reason: agitation Last Admin: 06/25/22 20:14 Dose: 5 mg Senna (Sennosides 8.6 Mg Tablet) 17.2 mg PO BID [facility] Last Admin: 06/29/22 09:39 Dose: 17.2 mg Sertraline HCl (Sertraline Hcl 50 Mg Tablet) 150 mg PO DAILY [facility] Last Admin: 06/29/22 09:39 Dose: 150 mg Tamsulosin HCl (Tamsulosin Hcl 0.4 Mg Capsule) 0.4 mg PO DAILY [facility] Last Admin: 06/29/22 09:39 Dose: 0.4 mg Trazodone HCl (Trazodone Hcl 50 Mg Tablet) 50 mg PO BEDTIME PRN PRN Reason: Insomnia Allergies Allergies Allergy/AdvReac Type Severity Reaction Status Date / Time No Known Allergies [NKA] Allergy Unknown NONE Verified 04/14/22 14:20 Assessment & Plan Assessment & Plan (1) Schizophrenia, catatonic: Status: Acute Code(s): 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 Tenorio is a 56 year-old male with hx of schizophrenia, stable for some years until he had declined in past 2-3 week. His [facility] worker hospital contacted crisis as pt not verbal, appeared confused, not his baseline. Pt did start ibuprofen recently and in combination with lithium concern was potential lithium toxicity. [facility] provider noted jerk like movements which are not baseline. He did missed few doses prior to coming to the hospital. In the ED, lithium not toxic levels. However, it does seem some degree of underlying kidney disease with decrease creatinine clearance. Pt with s/s of catatonia including mutism, staring at wall, did improve once given ativan 2mg. He is on ativan 2mg po TID at home for years but may have missed some doses and in the ED ativan was ordered as PRN. Pt on clozaril but was restarted at 25mg po qhs given reports of pt missing more than 2 doses. He is currently on 50mg po qhs and will increase daily by 25mg. PLAN 1. Admit to M3, cv 15 minutes checks. 2. continue current medications.? continue titration of clozaril 50mg po qhs today, 75mg po qhs tomorrow. 3. obtain collateral information 4. Aftercare planning 06/15 continue tx. 06/16 increase ativan 2mg po QID. continue clozaril titration 06/17:? ativan increased from 2 mg TID to 2 mg QID today due to ongoing catatonia. 06/18: CXR no evidence of pneumonia or CHF. Monitor respiratory status. Continue psychiatric management. 06/19: Continue current tx plan. 06/20 lower ativan to 1mg po tid- pt appears more sedated than catatonic. .hypersalivation noted- ?rebound anticholigergic with lower dose of clozaril. Titrate clozaril to 125mg po qhs. Home? dose was 250mg po qhs. 06/21 continue current tx. continue to monitor sedation, O2sat. 06/22: stable.? no change in mgmt. 06/23: increase HS clozapine from 150 mg to 175 mg.? slightly less PMR. 06/24: appears sedated midday.? no increase in clozapine for today.? continue current mgmt. 06/25 continue tx. 06/26 did give extra dose of ativan with some effect. 06/27 continue tx. may increase ativan as pt more alert but mute and staring. 06/28 continue tx. constipation on KUB. Added senna to colace, ducolax given, may consider enema. 06/29: continue current mgmt. remains without stool. Reason for contiued inpatient stay Substantial Risk for: inability to function and rapid decompensation Time Spent With Patient Time: Total time managing care of this patient today ____ minutes.
--- NOTE | 2022-06-29 18:31 | PC.NURSE ---
Pt remains catatonic with minimal response when spoken too. Pt ate breakfast and lunch in the kitchen along with attending art group. Pt ate 100% of these meals without difficulty. Pt received chopped ham steak for supper and had much difficulty with this.Pt having difficulty with the larger pieces of food. Pt received MOM a/o at 1045 with no results. Pt encouraged to sit on toilet which he did without success of a BM. Pt brush his teeth with cuing and ambulated in the hallway.
[2022-06-29 20:20] VITALS: BP 129/74; PULSE 77; RESP 16; O2SAT 94
[2022-06-29] MEDS: Lithium Carbonate 300 MG CAPSULE 600 MG PO (21:44)
[2022-06-29] MEDS: OLANZapine 10 MG TABLET PO (21:44)
[2022-06-29] MEDS: cloZAPine 200 MG, cloZAPine 50 MG 250 MG PO (21:44)
[2022-06-30 08:37] LABS: Glucose, Whole Blood 105 mg/dL (60-115)
[2022-06-30 08:45] VITALS: BP 134/79; PULSE 76; RESP 18; TEMP 36.7; O2SAT 94
[2022-06-30] MEDS: Docusate Sodium 100 MG CAPSULE PO ×2 (09:13→22:58)
[2022-06-30] MEDS: Sennosides 8.6 MG TABLET 17.2 MG PO ×2 (09:13→22:58)
[2022-06-30] MEDS: metFORMIN HCl ER 500 MG TAB.ER.24H PO (09:13)
[2022-06-30] MEDS: LORazepam 1 MG TABLET PO ×2 (09:13→14:57)
[2022-06-30] MEDS: Sertraline HCL 50 MG TABLET 150 MG PO (09:13)
[2022-06-30] MEDS: Tamsulosin HCL 0.4 MG CAPSULE PO (09:13)
[2022-06-30] MEDS: Mineral OiL enema 133 ML ENEMA PR (11:15)
--- NOTE | 2022-06-30 13:50 | MHC.SL.SWA ---
Speech Pathologist Impression: Risk of Aspiration Due to: Reduced Cognition Dysphasia Diet Status: Recommend continue on Chopped/Advanced (NDD3) with Thin Liquids, pills whole with liquid, requiring 1-1 supervision/cuing. Liquid Consistency and Strategies for Safe Swallow: Liquid Intake Recommendation: Thin Liquid Intake Strategies: Small Sips No Straws Solid Food Consistency: Dietary Recommendations: Chopped/Advanced (NDD3) Additional Modifications to Solid Foods: Pt w/ mild oral phase dysphagia 2nd to current mental state. Oral phase characterized by prolonged, slow mastication pattern and pocketing of solid foods. Recommend DOWNGRADE to GROUND/MECH ALTERED (NDD2) solids at this time and continue on THIN liquids, pills WHOLE or CRUSHED in PUREE per pt's tolerance. Discussed with nursing staff on unit. Recommend total supervision, provide cues throughout meals as needed. Pt must be awake and alert for presentation of PO, minimize distractions during meals. Ensure pt is taking small bites and adequately chewing food before swallowing. Alternate solids and liquids to promote oral clearance. Oral cavity to be clear before taking more bites. Upright 90 degree position when eating and drinking. Diet order updated by BUSINESS SYSTEMS ARCHITECT. Notified care team (MD, RN, RD) via [employer] Message. BUSINESS SYSTEMS ARCHITECT will continue to follow. Oral Medication Intake: Whole with Liquid Please contact the pharmacy regarding appropriate crushable or liquid drug formulations that are available whenever modified delivery is recommended. Compensatory Strategies and Precautions to be Taken for Safe Swallow: Sitting Upright (90 deg) Double Swallow No Straw Small Bites and Sips Alternate Liquids/Solids Rate of Ingestion Change Avoid Specific Foods Supervision While Eating and Drinking for Safe Swallow: Total Supervision (1:1) Foods to Avoid: Hard to chew solids Swallowing Recommended Treatments: Compens. Strategy Educat. Recommendation for Speech: Inpatient Speech Therapy Comment: Patient observed at lunch for toleration of upgraded diet (NDD3) with thin liquids. Patient was already eating when BUSINESS SYSTEMS ARCHITECT arrived, had behavioral health advertising assistant monitoring him closely during the meal, offering appropriate cuing throughout. Patient initially was taking spoonfuls of soup, which was managed well until taking about two thirds of the bowl by individual bites, patient produced a wet cough. Aid cued him to try other food, e.g. the mac and cheese which was the main meal on tray. Patient then took a bite of the mac and cheese, then added a second and third bite without swallowing (continuing to chew). Aid then cued him to swallow what he had in his mouth before taking more, then additionally cued him to take a sip of liquid before eating again (which the patient complied with). This pattern, of packing mouth then cued to stop, swallow, sip liquid continued, with patient eating about 1/3 of the Mac and Cheese. Patient then ate some of the sherbert on the tray, managing this consistency without difficulty. Patient then went back to the remaining solid food on the tray which was rice, and again exhibited the pattern of needing to be cued not to pack mouth, swallow and take sip of liquid. Aid did an excellent job monitoring and cuing patient, who needs this level of supervision on this consistency of food. Recommend continue on Chopped/Advanced (NDD3) with Thin Liquids, pills whole with liquid, requiring 1-1 supervision/cuing. Frequency/Duration: Date Range for Service Req: Timeline to reassess: Truck Jumper Clinican/Clinical Fellow: No Supervisory Statement: I have reviewed and agree with the student/clinical fellow's documentation: N/A Speech Language Pathologist: Vicki Jane M.A., CCC-BUSINESS SYSTEMS ARCHITECT
--- NOTE | 2022-06-30 15:36 | P.PNPSI_ITS ---
Subjective Subjective Date of Service: 06/30/22 Reason For Visit: psychosis Subjective Notes: Conditional Voluntary Interim History: Patient's case reviewed with treatment team nursing staff Julieth Haney nurse practitioner Patient remains on one-to-one a fall risk he is lethargic psychomotor retarded thought blocking marked latency speech noted to have Significant constipation abdominal x-ray shows stool but not evidence of obstruction Medication Compliance: Yes Side effects from medications: Yes Attending Groups: No Review of Systems Constipation fall risk Mental Status Exam Mental Status Exam Narrative: Appearance: wearing hospital gown, poor eye contact, in NAD Behavior: Superficially cooperative Psychomotor: retardation noted Speecdelayed in response rate, non-spontaneous TP: linear TC: Poverty of content minimal engagement no gross delusional material Affect: constricted SI: none expressed HI: none expressed VH/AH: none expressed Delusions: no overt delusional content noted or reported. Insight/judgment: fair x 2. Memory/cog: Knows he is in a hospital. No complaints of pain Diagnostics Vital Signs (24Hr): Vital Signs - 24 hr 06/29/22 20:20 06/30/22 08:45 Temperature 98.1 F Pulse Rate 77 76 Respiratory Rate 16 18 Blood Pressure 129/74 134/79 Pulse Oximetry 94 94 Oxygen Delivery Method Room Air Room Air BMI result Body Mass Index 32.1 Labs 06/20/22 10:25 06/29/22 08:47 Labs: Laboratory Results - last 48 hr 06/29/22 06/29/22 06/30/22 08:47 08:50 08:30 Creatinine 1.20 Estim Creat Clear Calc 76.8 Estimated GFR > 60 POC Glucose 112 105 Imaging Radiology Impressions: ITS Impressions Chest X-Ray 06/18/22 12:00 IMPRESSION: * Lungs are hypoinflated and right diaphragm elevated. * No evidence of pneumonia or congestive heart failure. KUB X-Ray 06/26/22 19:04 IMPRESSION: 1. Nonobstructive bowel gas pattern with a large colonic stool burden predominantly in the ascending colon and splenic flexure. Medications Medications Current Medications Acetaminophen (Acetaminophen 325 Mg Tablet) 650 mg PO Q6H PRN PRN Reason: Headache/Pain Mild Scale (1-3) Last Admin: 06/18/22 20:27 Dose: 650 mg Al Hydroxide/Mg Hydroxide (Magnesium Hydrox/Alum Hydrox 30 Ml Oral.Susp) 30 ml PO Q6H PRN PRN Reason: Heartburn/Nausea Clozapine 200 mg/ Clozapine 50 (mg) 250 mg PO BEDTIME [facility] Last Admin: 06/29/22 21:44 Dose: 250 mg Docusate Sodium (Docusate Sodium 100 Mg Capsule) 100 mg PO BID [facility] Last Admin: 06/30/22 09:13 Dose: 100 mg Guaifenesin (Guaifenesin 200 Mg/10 Ml 10 Ml Liquid) 10 ml PO Q4H PRN PRN Reason: productive cough Last Admin: 06/18/22 20:27 Dose: 10 ml Hydroxyzine HCl (Hydroxyzine Hcl 25 Mg Tablet) 25 mg PO Q6H PRN PRN Reason: Anxiety [place] Carbonate ([place] Carbonate 300 Mg Capsule) 600 mg PO BEDTIME [facility] Last Admin: 06/29/22 21:44 Dose: 600 mg Lorazepam (Lorazepam 1 Mg Tablet) 1 mg PO TID [facility] Last Admin: 06/30/22 14:57 Dose: 1 mg Magnesium Hydroxide (Milk Of Magnesia 30 Ml Oral.Susp) 30 ml PO DAILY PRN PRN Reason: Constipation Last Admin: 06/29/22 10:49 Dose: 30 ml Metformin HCl (Metformin Hcl Er 500 Mg Tab.Er.24h) 500 mg PO DAILY [facility] Last Admin: 06/30/22 09:13 Dose: 500 mg Nicotine Polacrilex (Nicotine Polacrilex 2 Mg Gum) 4 mg BUCCAL Q2H PRN PRN Reason: Nicotine Cravings Olanzapine (Olanzapine 10 Mg Tablet) 10 mg PO BEDTIME [facility] Last Admin: 06/29/22 21:44 Dose: 10 mg Olanzapine (Olanzapine 5 Mg Tablet) 5 mg PO TID PRN PRN Reason: agitation Last Admin: 06/25/22 20:14 Dose: 5 mg Senna (Sennosides 8.6 Mg Tablet) 17.2 mg PO BID [facility] Last Admin: 06/30/22 09:13 Dose: 17.2 mg Sertraline HCl (Sertraline Hcl 50 Mg Tablet) 150 mg PO DAILY [facility] Last Admin: 06/30/22 09:13 Dose: 150 mg Tamsulosin HCl (Tamsulosin Hcl 0.4 Mg Capsule) 0.4 mg PO DAILY [facility] Last Admin: 06/30/22 09:13 Dose: 0.4 mg Trazodone HCl (Trazodone Hcl 50 Mg Tablet) 50 mg PO BEDTIME PRN PRN Reason: Insomnia Allergies Allergies Allergy/AdvReac Type Severity Reaction Status Date / Time No Known Allergies [NKA] Allergy Unknown NONE Verified 04/14/22 14:20 Assessment & Plan Assessment & Plan (1) Schizophrenia, catatonic: Status: Acute Code(s): 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 Tenorio is a 56 year-old male with hx of schizophrenia, stable for some years until he had declined in past 2-3 week. His [facility] community case manager contacted crisis as pt not verbal, appeared confused, not his baseline. Pt did start ibuprofen recently and in combination with lithium concern was potential lithium toxicity. [facility] provider noted jerk like movements which are not baseline. He did missed few doses prior to coming to the hospital. In the ED, lithium not toxic levels. However, it does seem some degree of underlying kidney disease with decrease creatinine clearance. Pt with s/s of catatonia including mutism, staring at wall, did improve once given ativan 2mg. He is on ativan 2mg po TID at home for years but may have missed some doses and in the ED ativan was ordered as PRN. Pt on clozaril but was restarted at 25mg po qhs given reports of pt missing more than 2 doses. He is currently on 50mg po qhs and will increase daily by 25mg. PLAN 1. Admit to M3, cv 15 minutes checks. 2. continue current medications.? continue titration of clozaril 50mg po qhs today, 75mg po qhs tomorrow. 3. obtain collateral information 4. Aftercare planning 06/15 continue tx. 06/16 increase ativan 2mg po QID. continue clozaril titration 06/17:? ativan increased from 2 mg TID to 2 mg QID today due to ongoing catatonia. 06/18: CXR no evidence of pneumonia or CHF. Monitor respiratory status. Continue psychiatric management. 06/19: Continue current tx plan. 06/20 lower ativan to 1mg po tid- pt appears more sedated than catatonic. .hypersalivation noted- ?rebound anticholigergic with lower dose of clozaril. Titrate clozaril to 125mg po qhs. Home? dose was 250mg po qhs. 06/21 continue current tx. continue to monitor sedation, O2sat. 06/22: stable.? no change in mgmt. 06/23: increase HS clozapine from 150 mg to 175 mg.? slightly less PMR. 06/24: appears sedated midday.? no increase in clozapine for today.? continue current mgmt. 06/25 continue tx. 06/26 did give extra dose of ativan with some effect. 06/27 continue tx. may increase ativan as pt more alert but mute and staring. 06/28 continue tx. constipation on KUB. Added senna to colace, ducolax given, may consider enema. 06/29: continue current mgmt. remains without stool. 06/30/2022 Patient withdrawn psychomotor retarded discussed with patient's staff option of possible ECT marked constipation without obstruction noted did not respond to enema. Reviewed case with hospitalist service given no obstruction bili soft no evidence of obstruction on abdominal x-ray start lactulose. Hold olanzapine given psychomotor retardation catatonic type symptoms would strongly consider option of ECT monitor for any evidence of abdominal obstruction Start lactulose. . Discontinue Olanzapine Patient educated on: ECT and medical condition Informed Consent: further education needed Reason for contiued inpatient stay Substantial Risk for: inability to function, rapid decompensation and med/psych decompensation Time Spent With Patient Time: Total time managing care of this patient today _35___ minutes.
[2022-06-30] MEDS: Lactulose 20 GM/30 ML SOLUTION PO ×2 (16:56→22:58)
[2022-06-30 22:55] VITALS: BP 123/66; PULSE 78; RESP 16; TEMP 36.3; O2SAT 94
[2022-06-30] MEDS: LORazepam 0.5 MG TABLET 1.5 MG PO (22:58)
[2022-06-30] MEDS: cloZAPine 200 MG, cloZAPine 50 MG 250 MG PO (22:58)
[2022-06-30] MEDS: Lithium Carbonate 300 MG CAPSULE 600 MG PO (22:58)
[2022-07-01 08:00] VITALS: BP 123/71; PULSE 82; TEMP 36.3; O2SAT 92
[2022-07-01 08:57] LABS: Glucose, Whole Blood 101 mg/dL (60-115)
[2022-07-01] MEDS: Sennosides 8.6 MG TABLET 17.2 MG PO ×2 (09:03→20:35)
[2022-07-01] MEDS: metFORMIN HCl ER 500 MG TAB.ER.24H PO (09:03)
[2022-07-01] MEDS: Sertraline HCL 50 MG TABLET 150 MG PO (09:03)
[2022-07-01] MEDS: Tamsulosin HCL 0.4 MG CAPSULE PO (09:03)
[2022-07-01] MEDS: Lactulose 20 GM/30 ML SOLUTION PO ×4 (09:03→20:33)
[2022-07-01] MEDS: LORazepam 0.5 MG TABLET 1.5 MG PO (09:03)
[2022-07-01] MEDS: Docusate Sodium 100 MG CAPSULE PO ×2 (09:03→20:35)
--- NOTE | 2022-07-01 09:32 | P.PNPSI_ITS ---
Subjective Subjective Date of Service: 07/01/22 Reason For Visit: psychosis Subjective Notes: Conditional Voluntary Guardianship: No Medical Problems Affecting Mental Status: Yes (Severe constipation) Interim History: The patient is a 57-year-old male remains lethargic psychomotor retarded he is eating and drinking as per hospitalist service recommended lactulose patient's Suzanne is soft no abdominal pain noted olanzapine discontinued Ativan 2 mg t.i.d. patient on one-to-one for safety patient remains flat apathetic psychomotor retarded poverty of content Medication Compliance: Yes Attending Groups: No Review of Systems Constipation Mental Status Exam Mental Status Exam Narrative: Appearance: wearing hospital gown, poor eye contact, often sleeping Behavior: Superficially cooperative Psychomotor: retardation no waxy flexibility Speecdelayed in response rate, non-spontaneous TP: Marked poverty of content minimal responses but logical TC: Poverty of content denies pain Affect: constricted SI: none expressed HI: none expressed VH/AH: none expressed Delusions: no overt delusional content noted or reported. Insight/judgment: fair x 2. Memory/cog: Knows he is in a hospital. No complaints of pain Belly soft nontender on palpation Diagnostics Vital Signs (24Hr): Vital Signs - 24 hr 06/30/22 22:55 Temperature 97.3 F Pulse Rate 78 Respiratory Rate 16 Blood Pressure 123/66 Pulse Oximetry 94 Oxygen Delivery Method Room Air BMI result Body Mass Index 32.1 Labs 06/20/22 10:25 06/29/22 08:47 Labs: Laboratory Results - last 48 hr 06/29/22 06/30/22 07/01/22 08:47 08:30 08:52 Creatinine 1.20 Estim Creat Clear Calc 76.8 Estimated GFR > 60 POC Glucose 105 101 Imaging Radiology Impressions: ITS Impressions Chest X-Ray 06/18/22 12:00 IMPRESSION: * Lungs are hypoinflated and right diaphragm elevated. * No evidence of pneumonia or congestive heart failure. KUB X-Ray 06/26/22 19:04 IMPRESSION: 1. Nonobstructive bowel gas pattern with a large colonic stool burden predominantly in the ascending colon and splenic flexure. KUB X-Ray 06/30/22 13:56 IMPRESSION: Large stool burden throughout the colon. Medications Medications Current Medications Acetaminophen (Acetaminophen 325 Mg Tablet) 650 mg PO Q6H PRN PRN Reason: Headache/Pain Mild Scale (1-3) Last Admin: 06/18/22 20:27 Dose: 650 mg Al Hydroxide/Mg Hydroxide (Magnesium Hydrox/Alum Hydrox 30 Ml Oral.Susp) 30 ml PO Q6H PRN PRN Reason: Heartburn/Nausea Clozapine 200 mg/ Clozapine 50 (mg) 250 mg PO BEDTIME [facility] Last Admin: 06/30/22 22:58 Dose: 250 mg Docusate Sodium (Docusate Sodium 100 Mg Capsule) 100 mg PO BID [facility] Last Admin: 07/01/22 09:03 Dose: 100 mg Guaifenesin (Guaifenesin 200 Mg/10 Ml 10 Ml Liquid) 10 ml PO Q4H PRN PRN Reason: productive cough Last Admin: 06/18/22 20:27 Dose: 10 ml Hydroxyzine HCl (Hydroxyzine Hcl 25 Mg Tablet) 25 mg PO Q6H PRN PRN Reason: Anxiety Lactulose (Lactulose 20 Gm/30 Ml Solution) 20 gm PO QID [facility] Last Admin: 07/01/22 09:03 Dose: 20 gm [place] Carbonate ([place] Carbonate 300 Mg Capsule) 600 mg PO BEDTIME [facility] Last Admin: 06/30/22 22:58 Dose: 600 mg Lorazepam (Lorazepam 0.5 Mg Tablet) 1.5 mg PO TID [facility] Last Admin: 07/01/22 09:03 Dose: 1.5 mg Magnesium Hydroxide (Milk Of Magnesia 30 Ml Oral.Susp) 30 ml PO DAILY PRN PRN Reason: Constipation Last Admin: 06/29/22 10:49 Dose: 30 ml Metformin HCl (Metformin Hcl Er 500 Mg Tab.Er.24h) 500 mg PO DAILY [facility] Last Admin: 07/01/22 09:03 Dose: 500 mg Nicotine Polacrilex (Nicotine Polacrilex 2 Mg Gum) 4 mg [place] Q2H PRN PRN Reason: Nicotine Cravings Olanzapine (Olanzapine 5 Mg Tablet) 5 mg PO TID PRN PRN Reason: agitation Last Admin: 06/25/22 20:14 Dose: 5 mg Senna (Sennosides 8.6 Mg Tablet) 17.2 mg PO BID [facility] Last Admin: 07/01/22 09:03 Dose: 17.2 mg Sertraline HCl (Sertraline Hcl 50 Mg Tablet) 150 mg PO DAILY [facility] Last Admin: 07/01/22 09:03 Dose: 150 mg Tamsulosin HCl (Tamsulosin Hcl 0.4 Mg Capsule) 0.4 mg PO DAILY [facility] Last Admin: 07/01/22 09:03 Dose: 0.4 mg Trazodone HCl (Trazodone Hcl 50 Mg Tablet) 50 mg PO BEDTIME PRN PRN Reason: Insomnia Allergies Allergies Allergy/AdvReac Type Severity Reaction Status Date / Time No Known Allergies [NKA] Allergy Unknown NONE Verified 04/14/22 14:20 Assessment & Plan Assessment & Plan (1) Schizophrenia, catatonic: Status: Acute Code(s): 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 Tenorio is a 56 year-old male with hx of schizophrenia, stable for some years until he had declined in past 2-3 week. His [facility] wrapper caser contacted crisis as pt not verbal, appeared confused, not his baseline. Pt did start ibuprofen recently and in combination with lithium concern was potential lithium toxicity. [facility] provider noted jerk like movements which are not baseline. He did missed few doses prior to coming to the hospital. In the ED, lithium not toxic levels. However, it does seem some degree of underlying kidney disease with decrease creatinine clearance. Pt with s/s of catatonia including mutism, staring at wall, did improve once given ativan 2mg. He is on ativan 2mg po TID at home for years but may have missed some doses and in the ED ativan was ordered as PRN. Pt on clozaril but was restarted at 25mg po qhs given reports of pt missing more than 2 doses. He is currently on 50mg po qhs and will increase daily by 25mg. PLAN 1. Admit to M3, cv 15 minutes checks. 2. continue current medications.? continue titration of clozaril 50mg po qhs today, 75mg po qhs tomorrow. 3. obtain collateral information 4. Aftercare planning 06/15 continue tx. 06/16 increase ativan 2mg po QID. continue clozaril titration 06/17:? ativan increased from 2 mg TID to 2 mg QID today due to ongoing catatonia. 06/18: CXR no evidence of pneumonia or CHF. Monitor respiratory status. Continue psychiatric management. 06/19: Continue current tx plan. 06/20 lower ativan to 1mg po tid- pt appears more sedated than catatonic. .hypersalivation noted- ?rebound anticholigergic with lower dose of clozaril. Titrate clozaril to 125mg po qhs. Home? dose was 250mg po qhs. 06/21 continue current tx. continue to monitor sedation, O2sat. 06/22: stable.? no change in mgmt. 06/23: increase HS clozapine from 150 mg to 175 mg.? slightly less PMR. 06/24: appears sedated midday.? no increase in clozapine for today.? continue current mgmt. 06/25 continue tx. 06/26 did give extra dose of ativan with some effect. 06/27 continue tx. may increase ativan as pt more alert but mute and staring. 06/28 continue tx. constipation on KUB. Added senna to colace, ducolax given, may consider enema. 06/29: continue current mgmt. remains without stool. 06/30/2022 Patient withdrawn psychomotor retarded discussed with patient's staff option of possible ECT marked constipation without obstruction noted did not respond to enema. Reviewed case with hospitalist service given no obstruction bili soft no evidence of obstruction on abdominal x-ray start lactulose. Hold olanzapine given psychomotor retardation catatonic type symptoms would strongly consider option of ECT monitor for any evidence of abdominal obstruction Start lactulose. . Discontinue Olanzapine 07/01/22 Continue lactulose case reviewed with hospitalist service consider ECT olanzapine discontinued encourage fluids maintain clozapine at present dose secondary to constipation Reason for contiued inpatient stay Substantial Risk for: inability to function and med/psych decompensation Time Spent With Patient Time: Total time managing care of this patient today ____ minutes.
[2022-07-01] MEDS: Mineral OiL enema 133 ML ENEMA PR (13:52)
[2022-07-01] MEDS: LORazepam 1 MG TABLET 2 MG PO ×2 (16:11→20:35)
[2022-07-01 20:05] VITALS: BP 131/68; PULSE 75; RESP 18; TEMP 36.6; O2SAT 96
[2022-07-01] MEDS: Lithium Carbonate 300 MG CAPSULE 600 MG PO (20:34)
[2022-07-01] MEDS: cloZAPine 200 MG, cloZAPine 50 MG 250 MG PO (20:34)
[2022-07-02 07:53] LABS: MANUAL DIFF FLAG NO
[2022-07-02 07:56] LABS: Neut%MD 74.3 %; Neutrophils Absolute Auto 5.8 x10*3/uL (2.0-8.3); WBCANC 7.8 X10*3/uL
[2022-07-02 07:58] LABS: Basophils Percent Auto 0.1 % (0-2); Hematocrit 40.6 % (42.0-52.0); Hemoglobin 12.9 g/dl (14.0-18.0); Imm Gran Abs Auto 0.03 X10*3/uL (0.00-0.03); Imm Gran Pct Auto 0.4 % (0.0-0.4); Lymphocytes Absolute Auto 1.5 X10*3/uL (1.2-4.9); Lymphocytes Percent Auto 18.8 % (20-40); Mean Corpuscular HGB Conc 31.8 g/dl (31.0-36.0); Mean Corpuscular Hemoglobin 28.4 pg (27.0-33.0); Mean Corpuscular Volume 89.2 fL (80.0-98.0); Mean Platelet Volume 11.2 fL (9.4-12.4); Monocytes Absolute Auto 0.5 X10*3/uL (0.1-1.2); Monocytes Percent Auto 6.6 % (2-11); Neutrophils Absolute Auto 5.8 x10*3/uL (2.0-8.3); Neutrophils Percent Auto 74.1 % (45-73); Platelet Count 145 X10*3/uL (160-400); Red Blood Count 4.55 X10*6/uL (4.60-5.80); Red Cell Distribution Width 12.5 % (11.0-16.0); White Blood Count 7.8 X10*3/uL (4.8-10.8)
[2022-07-02 08:00] VITALS: BP 130/65; PULSE 95; RESP 18; TEMP 36.6; O2SAT 95
[2022-07-02 08:42] LABS: Alanine Aminotransferase 10 U/L (0-40); Albumin Level 3.6 g/dL (3.5-5.0); Alkaline Phosphatase 57 U/L (39-117); Anion Gap 11 (12-20); Aspartate Amino Transferase 10 U/L (5-37); Bilirubin Total 0.5 mg/dL (0.0-1.0); Blood Urea Nitrogen 17 mg/dL (9-16); Calcium 8.8 mg/dL (8.4-10.2); Carbon Dioxide 27 mmol/L (22-29); Chloride 109 mmol/L (96-108); Creatinine Clr Calc Pharmacy 76.2; Estimated Glomerular Filt Rate > 60; Glucose Fasting 104 mg/dL (60-99); Potassium 4.7 mmol/L (3.3-5.1); Sodium 142 mmol/L (135-145); Total Protein 5.9 g/dL (6.5-8.0)
[2022-07-02 09:03] LABS: Glucose, Whole Blood 104 mg/dL (60-115)
[2022-07-02] MEDS: Sertraline HCL 50 MG TABLET 150 MG PO (09:07)
[2022-07-02] MEDS: metFORMIN HCl ER 500 MG TAB.ER.24H PO (09:07)
[2022-07-02] MEDS: Sennosides 8.6 MG TABLET 17.2 MG PO ×2 (09:08→20:54)
[2022-07-02] MEDS: Docusate Sodium 100 MG CAPSULE PO ×2 (09:09→20:54)
[2022-07-02] MEDS: LORazepam 1 MG TABLET 2 MG PO ×3 (09:09→20:53)
[2022-07-02] MEDS: Tamsulosin HCL 0.4 MG CAPSULE PO (09:09)
[2022-07-02] MEDS: Lactulose 20 GM/30 ML SOLUTION PO ×4 (09:10→20:52)
--- NOTE | 2022-07-02 16:25 | P.PNPSI_ITS ---
Subjective Subjective Date of Service: 07/02/22 Reason For Visit: psychosis Medical Problems Affecting Mental Status: No Interim History: met with patient. Review chart. Discussed with Nursing. Overall being managed with some features of catatonia and on one-to-one observation. Today is flat in affect. Does answer questions but with clear psychomotor retardation evident. Reported an interest in getting outside. Otherwise denied depression. Denied medication concerns. Denied psychosis but may have some internal preoccupation. Was observed by entry writer to be drinking fluids. Medication Compliance: Yes Side effects from medications: No Attending Groups: No Review of Systems Acute medical concerns: No Review of Systems Review of Systems Nothing acute Mental Status Exam Mental Status Exam Narrative: Appearance: wearing hospital gown, poor eye contact, often sleeping Behavior: Superficially cooperative Psychomotor: retardation Speech- delayed in response rate, non-spontaneous TP: Marked poverty of content minimal responses but logical TC: Poverty of content denies pain Affect: constricted SI: none expressed HI: none expressed VH/AH: none expressed Delusions: no overt delusional content noted or reported. Insight/judgment: fair x 2. Memory/cog: Knows he is in a hospital. No complaints of pain Diagnostics Vital Signs (24Hr): Vital Signs - 24 hr 07/01/22 20:05 07/02/22 08:00 Temperature 97.8 F 97.9 F Pulse Rate 75 95 Respiratory Rate 18 18 Blood Pressure 131/68 130/65 Pulse Oximetry 96 95 Oxygen Delivery Method Room Air Room Air BMI result Body Mass Index 32.1 Labs 07/02/22 07:37 07/02/22 07:37 Labs: Laboratory Results - last 48 hr 07/01/22 07/02/22 07/02/22 08:52 07:37 07:37 WBC 7.8 RBC 4.55 L Hgb 12.9 L Hct 40.6 L MCV 89.2 MCH 28.4 MCHC 31.8 RDW 12.5 Plt Count 145 L MPV 11.2 Immature Gran % (Auto) 0.4 Neut % (Auto) 74.1 H Lymph % (Auto) 18.8 L Barnes % (Auto) 6.6 Eos % (Auto) 0.0 Baso % (Auto) 0.1 Lymph # (Auto) 1.5 Barnes # (Auto) 0.5 Eos # (Auto) 0.0 Baso # (Auto) 0.0 Abs Immat Gran (auto) 0.03 Absolute Neuts (auto) 5.8 Absolute Nucleated RBC 0.000 Nucleated RBC % (auto) 0.0 Sodium 142 Potassium 4.7 Chloride 109 H Carbon Dioxide 27 Anion Gap 11 L BUN 17 H Creatinine 1.21 Estim Creat Clear Calc 76.2 Estimated GFR > 60 POC Glucose 101 Fasting Glucose 104 H Calcium 8.8 Total Bilirubin 0.5 AST 10 ALT 10 Alkaline Phosphatase 57 Total Protein 5.9 L Albumin 3.6 [place] 07/02/22 07/02/22 07/02/22 07:37 07:37 08:58 WBC RBC Hgb Hct MCV MCH MCHC RDW Plt Count MPV Immature Gran % (Auto) Neut % (Auto) Lymph % (Auto) Barnes % (Auto) Eos % (Auto) Baso % (Auto) Lymph # (Auto) Barnes # (Auto) Eos # (Auto) Baso # (Auto) Abs Immat Gran (auto) Absolute Neuts (auto) 5.8 Absolute Nucleated RBC Nucleated RBC % (auto) Sodium Potassium Chloride Carbon Dioxide Anion Gap BUN Creatinine Estim Creat Clear Calc Estimated GFR POC Glucose 104 Fasting Glucose Calcium Total Bilirubin AST ALT Alkaline Phosphatase Total Protein Albumin [place] 0.80 Imaging Radiology Impressions: ITS Impressions Chest X-Ray 06/18/22 12:00 IMPRESSION: * Lungs are hypoinflated and right diaphragm elevated. * No evidence of pneumonia or congestive heart failure. KUB X-Ray 06/26/22 19:04 IMPRESSION: 1. Nonobstructive bowel gas pattern with a large colonic stool burden predominantly in the ascending colon and splenic flexure. KUB X-Ray 06/30/22 13:56 IMPRESSION: Large stool burden throughout the colon. Medications Medications Current Medications Acetaminophen (Acetaminophen 325 Mg Tablet) 650 mg PO Q6H PRN PRN Reason: Headache/Pain Mild Scale (1-3) Last Admin: 06/18/22 20:27 Dose: 650 mg Al Hydroxide/Mg Hydroxide (Magnesium Hydrox/Alum Hydrox 30 Ml Oral.Susp) 30 ml PO Q6H PRN PRN Reason: Heartburn/Nausea Clozapine 200 mg/ Clozapine 50 (mg) 250 mg PO BEDTIME [facility] Last Admin: 07/01/22 20:34 Dose: 50 mg Docusate Sodium (Docusate Sodium 100 Mg Capsule) 100 mg PO BID [facility] Last Admin: 07/02/22 09:09 Dose: 100 mg Guaifenesin (Guaifenesin 200 Mg/10 Ml 10 Ml Liquid) 10 ml PO Q4H PRN PRN Reason: productive cough Last Admin: 06/18/22 20:27 Dose: 10 ml Hydroxyzine HCl (Hydroxyzine Hcl 25 Mg Tablet) 25 mg PO Q6H PRN PRN Reason: Anxiety Lactulose (Lactulose 20 Gm/30 Ml Solution) 20 gm PO QID [facility] Last Admin: 07/02/22 14:33 Dose: 20 gm [place] Carbonate ([place] Carbonate 300 Mg Capsule) 600 mg PO BEDTIME [facility] Last Admin: 07/01/22 20:34 Dose: 600 mg Lorazepam (Lorazepam 1 Mg Tablet) 2 mg PO TID [facility] Last Admin: 07/02/22 14:32 Dose: 2 mg Magnesium Hydroxide (Milk Of Magnesia 30 Ml Oral.Susp) 30 ml PO DAILY PRN PRN Reason: Constipation Last Admin: 06/29/22 10:49 Dose: 30 ml Metformin HCl (Metformin Hcl Er 500 Mg Tab.Er.24h) 500 mg PO DAILY [facility] Last Admin: 07/02/22 09:07 Dose: 500 mg Nicotine Polacrilex (Nicotine Polacrilex 2 Mg Gum) 4 mg [place] Q2H PRN PRN Reason: Nicotine Cravings Olanzapine (Olanzapine 5 Mg Tablet) 5 mg PO TID PRN PRN Reason: agitation Last Admin: 06/25/22 20:14 Dose: 5 mg Senna (Sennosides 8.6 Mg Tablet) 17.2 mg PO BID [facility] Last Admin: 07/02/22 09:08 Dose: 17.2 mg Sertraline HCl (Sertraline Hcl 50 Mg Tablet) 150 mg PO DAILY [facility] Last Admin: 07/02/22 09:07 Dose: 150 mg Tamsulosin HCl (Tamsulosin Hcl 0.4 Mg Capsule) 0.4 mg PO DAILY [facility] Last Admin: 07/02/22 09:09 Dose: 0.4 mg Trazodone HCl (Trazodone Hcl 50 Mg Tablet) 50 mg PO BEDTIME PRN PRN Reason: Insomnia Allergies Allergies Allergy/AdvReac Type Severity Reaction Status Date / Time No Known Allergies [NKA] Allergy Unknown NONE Verified 04/14/22 14:20 Assessment & Plan Assessment & Plan (1) Schizophrenia, catatonic: Status: Acute Code(s): 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 Tenorio is a 56 year-old male with hx of schizophrenia, stable for some years until he had declined in past 2-3 week. His [facility] field nurse case manager contacted crisis as pt not verbal, appeared confused, not his baseline. Pt did start ibuprofen recently and in combination with lithium concern was potential lithium toxicity. [facility] provider noted jerk like movements which are not baseline. He did missed few doses prior to coming to the hospital. In the ED, lithium not toxic levels. However, it does seem some degree of underlying kidney disease with decrease creatinine clearance. Pt with s/s of catatonia including mutism, staring at wall, did improve once given ativan 2mg. He is on ativan 2mg po TID at home for years but may have missed some doses and in the ED ativan was ordered as PRN. Pt on clozaril but was restarted at 25mg po qhs given reports of pt missing more than 2 doses. He is currently on 50mg po qhs and will increase daily by 25mg. PLAN 1. Admit to M3, cv 15 minutes checks. 2. continue current medications.? continue titration of clozaril 50mg po qhs today, 75mg po qhs tomorrow. 3. obtain collateral information 4. Aftercare planning 06/15 continue tx. 06/16 increase ativan 2mg po QID. continue clozaril titration 06/17:? ativan increased from 2 mg TID to 2 mg QID today due to ongoing catatonia. 06/18: CXR no evidence of pneumonia or CHF. Monitor respiratory status. Continue psychiatric management. 06/19: Continue current tx plan. 06/20 lower ativan to 1mg po tid- pt appears more sedated than catatonic. .hypersalivation noted- ?rebound anticholigergic with lower dose of clozaril. Titrate clozaril to 125mg po qhs. Home? dose was 250mg po qhs. 06/21 continue current tx. continue to monitor sedation, O2sat. 06/22: stable.? no change in mgmt. 06/23: increase HS clozapine from 150 mg to 175 mg.? slightly less PMR. 06/24: appears sedated midday.? no increase in clozapine for today.? continue current mgmt. 06/25 continue tx. 06/26 did give extra dose of ativan with some effect. 06/27 continue tx. may increase ativan as pt more alert but mute and staring. 06/28 continue tx. constipation on KUB. Added senna to colace, ducolax given, may consider enema. 06/29: continue current mgmt. remains without stool. 06/30/2022 Patient withdrawn psychomotor retarded discussed with patient's staff option of possible ECT marked constipation without obstruction noted did not respond to enema. Reviewed case with hospitalist service given no obstruction bili soft no evidence of obstruction on abdominal x-ray start lactulose. Hold olanzapine given psychomotor retardation catatonic type symptoms would strongly consider option of ECT monitor for any evidence of abdominal obstruction Start lactulose. . Discontinue Olanzapine 07/02/2022: no changes to current plan- primary team considering ECT Reason for contiued inpatient stay Substantial Risk for: inability to function Time Spent With Patient Time: Total time managing care of this patient today ____ minutes.
[2022-07-02 20:16] VITALS: BP 112/63; PULSE 69; RESP 16; TEMP 36.6; O2SAT 94
[2022-07-02] MEDS: cloZAPine 200 MG, cloZAPine 50 MG 250 MG PO (20:53)
[2022-07-02] MEDS: Lithium Carbonate 300 MG CAPSULE 600 MG PO (20:53)
[2022-07-02] MEDS: Acetaminophen 325 MG TABLET 650 MG PO (20:53)
[2022-07-03 08:20] VITALS: BP 111/55; PULSE 87; RESP 18; TEMP 36.6; O2SAT 95
[2022-07-03] MEDS: Sennosides 8.6 MG TABLET 17.2 MG PO ×2 (09:43→22:42)
[2022-07-03] MEDS: Docusate Sodium 100 MG CAPSULE PO ×2 (09:43→22:44)
[2022-07-03] MEDS: Tamsulosin HCL 0.4 MG CAPSULE PO (09:44)
[2022-07-03] MEDS: metFORMIN HCl ER 500 MG TAB.ER.24H PO (09:44)
[2022-07-03] MEDS: LORazepam 1 MG TABLET 2 MG PO ×2 (09:44→15:09)
[2022-07-03] MEDS: Sertraline HCL 50 MG TABLET 150 MG PO (09:45)
[2022-07-03] MEDS: Lactulose 20 GM/30 ML SOLUTION PO ×2 (09:46→12:25)
[2022-07-03 12:21] LABS: Glucose, Whole Blood 135 mg/dL (60-115)
--- NOTE | 2022-07-03 14:07 | HO.PSYCHPN ---
Subjective Subjective Date of Service: 07/03/22 Reason For Visit: psychosis Interim History: Still some catatonia and on one-to-one observation. Today is flat in affect. Minimal answer. Has been eating more today. Otherwise denied depression. Denied medication concerns. Denied feeling scared or unsafe Medication Compliance: Yes Side effects from medications: No Attending Groups: No Review of Systems Acute medical concerns: No Review of Systems Review of Systems Nothing acute Mental Status Exam Mental Status Exam Narrative: Appearance: wearing hospital gown, poor eye contact, often sleeping Behavior: Superficially cooperative Psychomotor: retardation Speech- delayed in response rate, non-spontaneous TP: Marked poverty of content minimal responses but logical TC: Poverty of content denies pain Affect: constricted SI: none expressed HI: none expressed VH/AH: none expressed Delusions: no overt delusional content noted or reported. Insight/judgment: fair x 2. Memory/cog: Knows he is in a hospital. No complaints of pain Diagnostics Vital Signs (24Hr): Vital Signs - 24 hr 07/02/22 20:16 07/03/22 08:20 Temperature 97.8 F 97.9 F Pulse Rate 69 87 Respiratory Rate 16 18 Blood Pressure 112/63 111/55 L Pulse Oximetry 94 95 Oxygen Delivery Method Room Air Room Air BMI result Body Mass Index 32.1 Labs 07/02/22 07:37 07/02/22 07:37 Labs: Laboratory Results - last 48 hr 07/02/22 07/02/22 07/02/22 07:37 07:37 07:37 WBC 7.8 RBC 4.55 L Hgb 12.9 L Hct 40.6 L MCV 89.2 MCH 28.4 MCHC 31.8 RDW 12.5 Plt Count 145 L MPV 11.2 Immature Gran % (Auto) 0.4 Neut % (Auto) 74.1 H Lymph % (Auto) 18.8 L Calhoun % (Auto) 6.6 Eos % (Auto) 0.0 Baso % (Auto) 0.1 Lymph # (Auto) 1.5 Calhoun # (Auto) 0.5 Eos # (Auto) 0.0 Baso # (Auto) 0.0 Abs Immat Gran (auto) 0.03 Absolute Neuts (auto) 5.8 Absolute Nucleated RBC 0.000 Nucleated RBC % (auto) 0.0 Sodium 142 Potassium 4.7 Chloride 109 H Carbon Dioxide 27 Anion Gap 11 L BUN 17 H Creatinine 1.21 Estim Creat Clear Calc 76.2 Estimated GFR > 60 POC Glucose Fasting Glucose 104 H Calcium 8.8 Total Bilirubin 0.5 AST 10 ALT 10 Alkaline Phosphatase 57 Total Protein 5.9 L Albumin 3.6 Bloomer 0.80 07/02/22 07/02/22 07/03/22 07:37 08:58 12:16 WBC RBC Hgb Hct MCV MCH MCHC RDW Plt Count MPV Immature Gran % (Auto) Neut % (Auto) Lymph % (Auto) Calhoun % (Auto) Eos % (Auto) Baso % (Auto) Lymph # (Auto) Calhoun # (Auto) Eos # (Auto) Baso # (Auto) Abs Immat Gran (auto) Absolute Neuts (auto) 5.8 Absolute Nucleated RBC Nucleated RBC % (auto) Sodium Potassium Chloride Carbon Dioxide Anion Gap BUN Creatinine Estim Creat Clear Calc Estimated GFR POC Glucose 104 135 H Fasting Glucose Calcium Total Bilirubin AST ALT Alkaline Phosphatase Total Protein Albumin Bloomer Imaging Radiology Impressions: ITS Impressions Chest X-Ray 06/18/22 12:00 IMPRESSION: * Lungs are hypoinflated and right diaphragm elevated. * No evidence of pneumonia or congestive heart failure. KUB X-Ray 06/26/22 19:04 IMPRESSION: 1. Nonobstructive bowel gas pattern with a large colonic stool burden predominantly in the ascending colon and splenic flexure. KUB X-Ray 06/30/22 13:56 IMPRESSION: Large stool burden throughout the colon. Medications Medications Current Medications Acetaminophen (Acetaminophen 325 Mg Tablet) 650 mg PO Q6H PRN PRN Reason: Headache/Pain Mild Scale (1-3) Last Admin: 07/02/22 20:53 Dose: 650 mg Al Hydroxide/Mg Hydroxide (Magnesium Hydrox/Alum Hydrox 30 Ml Oral.Susp) 30 ml PO Q6H PRN PRN Reason: Heartburn/Nausea Clozapine 200 mg/ Clozapine 50 (mg) 250 mg PO BEDTIME KRISTIN Last Admin: 07/02/22 20:53 Dose: 250 mg Docusate Sodium (Docusate Sodium 100 Mg Capsule) 100 mg PO BID KRISTIN Last Admin: 07/03/22 09:43 Dose: 100 mg Guaifenesin (Guaifenesin 200 Mg/10 Ml 10 Ml Liquid) 10 ml PO Q4H PRN PRN Reason: productive cough Last Admin: 06/18/22 20:27 Dose: 10 ml Hydroxyzine HCl (Hydroxyzine Hcl 25 Mg Tablet) 25 mg PO Q6H PRN PRN Reason: Anxiety Lactulose (Lactulose 20 Gm/30 Ml Solution) 20 gm PO QID [facility] Last Admin: 07/03/22 12:25 Dose: 20 gm Bloom[place] Carbonate (Bloomer Carbonate 300 Mg Capsule) 600 mg PO BEDTIME [facility] Last Admin: 07/02/22 20:53 Dose: 600 mg Lorazepam (Lorazepam 1 Mg Tablet) 2 mg PO TID [facility] Last Admin: 07/03/22 09:44 Dose: 2 mg Magnesium Hydroxide (Milk Of Magnesia 30 Ml Oral.Susp) 30 ml PO DAILY PRN PRN Reason: Constipation Last Admin: 06/29/22 10:49 Dose: 30 ml Metformin HCl (Metformin Hcl Er 500 Mg Tab.Er.24h) 500 mg PO DAILY [facility] Last Admin: 07/03/22 09:44 Dose: 500 mg Nicotine Polacrilex (Nicotine Polacrilex 2 Mg Gum) 4 mg BUCCAL Q2H PRN PRN Reason: Nicotine Cravings Olanzapine (Olanzapine 5 Mg Tablet) 5 mg PO TID PRN PRN Reason: agitation Last Admin: 06/25/22 20:14 Dose: 5 mg Senna (Sennosides 8.6 Mg Tablet) 17.2 mg PO BID [facility] Last Admin: 07/03/22 09:43 Dose: 17.2 mg Sertraline HCl (Sertraline Hcl 50 Mg Tablet) 150 mg PO DAILY [facility] Last Admin: 07/03/22 09:45 Dose: 150 mg Tamsulosin HCl (Tamsulosin Hcl 0.4 Mg Capsule) 0.4 mg PO DAILY [facility] Last Admin: 07/03/22 09:44 Dose: 0.4 mg Trazodone HCl (Trazodone Hcl 50 Mg Tablet) 50 mg PO BEDTIME PRN PRN Reason: Insomnia Allergies Allergies Allergy/AdvReac Type Severity Reaction Status Date / Time No Known Allergies [NKA] Allergy Unknown NONE Verified 04/14/22 14:20 Assessment & Plan Assessment & Plan (1) Schizophrenia, catatonic: Status: Acute Code(s): 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 Tenorio is a 56 year-old male with hx of schizophrenia, stable for some years until he had declined in past 2-3 week. His CHD case aide contacted crisis as pt not verbal, appeared confused, not his baseline. Pt did start ibuprofen recently and in combination with lithium concern was potential lithium toxicity. CHD provider noted jerk like movements which are not baseline. He did missed few doses prior to coming to the hospital. In the ED, lithium not toxic levels. However, it does seem some degree of underlying kidney disease with decrease creatinine clearance. Pt with s/s of catatonia including mutism, staring at wall, did improve once given ativan 2mg. He is on ativan 2mg po TID at home for years but may have missed some doses and in the ED ativan was ordered as PRN. Pt on clozaril but was restarted at 25mg po qhs given reports of pt missing more than 2 doses. He is currently on 50mg po qhs and will increase daily by 25mg. PLAN 1. Admit to M3, cv 15 minutes checks. 2. continue current medications.? continue titration of clozaril 50mg po qhs today, 75mg po qhs tomorrow. 3. obtain collateral information 4. Aftercare planning 06/15 continue tx. 06/16 increase ativan 2mg po QID. continue clozaril titration 06/17:? ativan increased from 2 mg TID to 2 mg QID today due to ongoing catatonia. 06/18: CXR no evidence of pneumonia or CHF. Monitor respiratory status. Continue psychiatric management. 06/19: Continue current tx plan. 06/20 lower ativan to 1mg po tid- pt appears more sedated than catatonic. .hypersalivation noted- ?rebound anticholigergic with lower dose of clozaril. Titrate clozaril to 125mg po qhs. Home? dose was 250mg po qhs. 06/21 continue current tx. continue to monitor sedation, O2sat. 06/22: stable.? no change in mgmt. 06/23: increase HS clozapine from 150 mg to 175 mg.? slightly less PMR. 06/24: appears sedated midday.? no increase in clozapine for today.? continue current mgmt. 06/25 continue tx. 06/26 did give extra dose of ativan with some effect. 06/27 continue tx. may increase ativan as pt more alert but mute and staring. 06/28 continue tx. constipation on KUB. Added senna to colace, ducolax given, may consider enema. 06/29: continue current mgmt. remains without stool. 06/30/2022 Patient withdrawn psychomotor retarded discussed with patient's staff option of possible ECT marked constipation without obstruction noted did not respond to enema. Reviewed case with hospitalist service given no obstruction bili soft no evidence of obstruction on abdominal x-ray start lactulose. Hold olanzapine given psychomotor retardation catatonic type symptoms would strongly consider option of ECT monitor for any evidence of abdominal obstruction Start lactulose. . Discontinue Olanzapine 07/03/2022: no changes to current plan- primary team considering ECT Reason for contiued inpatient stay Substantial Risk for: inability to function Time Spent With Patient Time: Total time managing care of this patient today ____ minutes.
--- NOTE | 2022-07-03 16:57 | PC.NURSE ---
Pt refused 1700 lactulose c/o gas pains
[2022-07-03 22:40] VITALS: BP 96/49; PULSE 82; RESP 18
[2022-07-03] MEDS: cloZAPine 200 MG, cloZAPine 50 MG 250 MG PO (22:42)
[2022-07-03] MEDS: Lithium Carbonate 300 MG CAPSULE 600 MG PO (22:44)
[2022-07-04 08:40] LABS: Glucose, Whole Blood 98 mg/dL (60-115)
[2022-07-04] MEDS: LORazepam 1 MG TABLET 2 MG PO ×3 (09:40→22:48)
[2022-07-04] MEDS: Sennosides 8.6 MG TABLET 17.2 MG PO (09:40)
[2022-07-04] MEDS: Lactulose 20 GM/30 ML SOLUTION PO ×2 (09:40→14:33)
[2022-07-04] MEDS: Sertraline HCL 50 MG TABLET 150 MG PO (09:41)
[2022-07-04] MEDS: Docusate Sodium 100 MG CAPSULE PO (09:41)
[2022-07-04] MEDS: metFORMIN HCl ER 500 MG TAB.ER.24H PO (09:41)
[2022-07-04] MEDS: Tamsulosin HCL 0.4 MG CAPSULE PO (09:42)
[2022-07-04 09:44] VITALS: BP 134/70; PULSE 81; RESP 18; TEMP 36.3; O2SAT 95
--- NOTE | 2022-07-04 12:12 | MHC.SL.SWA ---
Speech Pathologist Impression: Risk of aspiration, oropharyngeal dysphagia Risk of Aspiration Due to: Reduced Cognition Dysphasia Diet Status: Recommend continue on Chopped/Advanced (NDD3) with Thin Liquids, pills whole with liquid, requiring 1-1 supervision/cuing. Liquid Consistency and Strategies for Safe Swallow: Liquid Intake Recommendation: Thin Liquid Intake Strategies: Small Sips No Straws Solid Food Consistency: Dietary Recommendations: Chopped/Advanced (NDD3) Oral Medication Intake: Whole with Liquid Please contact the pharmacy regarding appropriate crushable or liquid drug formulations that are available whenever modified delivery is recommended. Compensatory Strategies and Precautions to be Taken for Safe Swallow: Sitting Upright (90 deg) Double Swallow No Straw Small Bites and Sips Alternate Liquids/Solids Rate of Ingestion Change Avoid Specific Foods Supervision While Eating and Drinking for Safe Swallow: Total Supervision (1:1) Foods to Avoid: Hard to chew solids Swallowing Recommended Treatments: Compens. Strategy Educat. Recommendation for Speech: Inpatient Speech Therapy Ge[employer] Laboratory Director Clinican/Clinical Fellow: No Supervisory Statement: I have reviewed and agree with the student/clinical fellow's documentation: N/A Speech Language Pathologist: Nona Whitmore M.A., CCC-SANITATION OFFICER
[2022-07-04] MEDS: Lactated Ringers 1,000 ML 125 ML IVCONT (18:22)
[2022-07-04] MEDS: PEG 3350/Na Sulf,Bicarb,Cl/KCL 4,000 ML SOLN.RECON 4000 ML PO (19:45)
[2022-07-04] MEDS: Lithium Carbonate 300 MG CAPSULE 600 MG PO (22:48)
[2022-07-04] MEDS: cloZAPine 200 MG, cloZAPine 50 MG 250 MG PO (22:48)
--- NOTE | 2022-07-04 23:32 | P.PNPSI_ITS ---
Subjective Subjective Date of Service: 07/04/22 Reason For Visit: psychosis Interim History: Patient quite depressed withdrawn still has not passed significant feces remains on one-to-one minimal engagement psychomotor retarded slowed mentation no clear improvement with Ativan 2 t.i.d. c/o some degree abd discomfort abd xr no impaction Medication Compliance: Intermittent Side effects from medications: Yes Mental Status Exam Mental Status Exam Narrative: Appearance: wearing hospital gown, poor eye contact, snoring when sleeping Behavior: Superficially cooperative Psychomotor: retardation Speech- delayed in response rate, non-spontaneous TP: Marked poverty of content minimal responses but logical TC: Poverty of content denies pain Affect: constricted SI: none expressed HI: none expressed VH/AH: none expressed Delusions: no overt delusional content noted or reported. Insight/judgment: fair x 2. Memory/cog: Knows he is in a hospital. minimal c/o stomach discomfort Diagnostics Vital Signs (24Hr): Vital Signs - 24 hr 07/04/22 09:44 Temperature 97.4 F Pulse Rate 81 Respiratory Rate 18 Blood Pressure 134/70 Pulse Oximetry 95 Oxygen Delivery Method Room Air BMI result Body Mass Index 32.1 Labs 07/02/22 07:37 07/02/22 07:37 Labs: Laboratory Results - last 48 hr 07/03/22 07/04/22 12:16 08:36 POC Glucose 135 H 98 Imaging Radiology Impressions: ITS Impressions Chest X-Ray 06/18/22 12:00 IMPRESSION: * Lungs are hypoinflated and right diaphragm elevated. * No evidence of pneumonia or congestive heart failure. KUB X-Ray 06/26/22 19:04 IMPRESSION: 1. Nonobstructive bowel gas pattern with a large colonic stool burden predominantly in the ascending colon and splenic flexure. KUB X-Ray 06/30/22 13:56 IMPRESSION: Large stool burden throughout the colon. Abdomen X-Ray 07/04/22 17:40 IMPRESSION: Large volume of stool in colon. Nonobstructive bowel pattern. Medications Medications Current Medications Acetaminophen (Acetaminophen 325 Mg Tablet) 650 mg PO Q6H PRN PRN Reason: Headache/Pain Mild Scale (1-3) Last Admin: 07/02/22 20:53 Dose: 650 mg Al Hydroxide/Mg Hydroxide (Magnesium Hydrox/Alum Hydrox 30 Ml Oral.Susp) 30 ml PO Q6H PRN PRN Reason: Heartburn/Nausea Clozapine 200 mg/ Clozapine 50 (mg) 250 mg PO BEDTIME [facility] Last Admin: 07/04/22 22:48 Dose: 250 mg Guaifenesin (Guaifenesin 200 Mg/10 Ml 10 Ml Liquid) 10 ml PO Q4H PRN PRN Reason: productive cough Last Admin: 06/18/22 20:27 Dose: 10 ml Lactated Ringer's (Lr) 1,000 mls @ 125 mls/hr IVCONT .Q8H [facility] Stop: 07/05/22 08:59 Last Admin: 07/04/22 18:22 Dose: 125 mls/hr [employer] Carbonate ([employer] Carbonate 300 Mg Capsule) 600 mg PO BEDTIME [facility] Last Admin: 07/04/22 22:48 Dose: 600 mg Lorazepam (Lorazepam 1 Mg Tablet) 2 mg PO TID [facility] Last Admin: 07/04/22 22:48 Dose: 2 mg Magnesium Hydroxide (Milk Of Magnesia 30 Ml Oral.Susp) 30 ml PO DAILY PRN PRN Reason: Constipation Last Admin: 06/29/22 10:49 Dose: 30 ml Metformin HCl (Metformin Hcl Er 500 Mg Tab.Er.24h) 500 mg PO DAILY [facility] Last Admin: 07/04/22 09:41 Dose: 500 mg Nicotine Polacrilex (Nicotine Polacrilex 2 Mg Gum) 4 mg BUCCAL Q2H PRN PRN Reason: Nicotine Cravings Olanzapine (Olanzapine 5 Mg Tablet) 5 mg PO TID PRN PRN Reason: agitation Last Admin: 06/25/22 20:14 Dose: 5 mg Sertraline HCl (Sertraline Hcl 50 Mg Tablet) 150 mg PO DAILY [facility] Last Admin: 07/04/22 09:41 Dose: 150 mg Tamsulosin HCl (Tamsulosin Hcl 0.4 Mg Capsule) 0.4 mg PO DAILY [facility] Last Admin: 07/04/22 09:42 Dose: 0.4 mg Trazodone HCl (Trazodone Hcl 50 Mg Tablet) 50 mg PO BEDTIME PRN PRN Reason: Insomnia Allergies Allergies Allergy/AdvReac Type Severity Reaction Status Date / Time No Known Allergies [NKA] Allergy Unknown NONE Verified 04/14/22 14:20 Assessment & Plan Assessment & Plan (1) Schizophrenia, catatonic: Status: Acute Code(s): 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 Tenorio is a 56 year-old male with hx of schizophrenia, stable for some years until he had declined in past 2-3 week. His CHD director of casework contacted crisis as pt not verbal, appeared confused, not his baseline. Pt did start ibuprofen recently and in combination with lithium concern was potential lithium toxicity. CHD provider noted jerk like movements which are not baseline. He did missed few doses prior to coming to the hospital. In the ED, lithium not toxic levels. However, it does seem some degree of underlying kidney disease with decrease creatinine clearance. Pt with s/s of catatonia including mutism, staring at wall, did improve once given ativan 2mg. He is on ativan 2mg po TID at home for years but may have missed some doses and in the ED ativan was ordered as PRN. Pt on clozaril but was restarted at 25mg po qhs given reports of pt missing more than 2 doses. He is currently on 50mg po qhs and will increase daily by 25mg. PLAN 1. Admit to M3, cv 15 minutes checks. 2. continue current medications.? continue titration of clozaril 50mg po qhs today, 75mg po qhs tomorrow. 3. obtain collateral information 4. Aftercare planning 06/15 continue tx. 06/16 increase ativan 2mg po QID. continue clozaril titration 06/17:? ativan increased from 2 mg TID to 2 mg QID today due to ongoing cataton ia. 06/18: CXR no evidence of pneumonia or CHF. Monitor respiratory status. Continue psychiatric management. 06/19: Continue current tx plan. 06/20 lower ativan to 1mg po tid- pt appears more sedated than catatonic. .hypersalivation noted- ?rebound anticholigergic with lower dose of clozaril. Titrate clozaril to 125mg po qhs. Home? dose was 250mg po qhs. 06/21 continue current tx. continue to monitor sedation, O2sat. 06/22: stable.? no change in mgmt. 06/23: increase HS clozapine from 150 mg to 175 mg.? slightly less PMR. 06/24: appears sedated midday.? no increase in clozapine for today.? continue c urrent mgmt. 06/25 continue tx. 06/26 did give extra dose of ativan with some effect. 06/27 continue tx. may increase ativan as pt more alert but mute and staring. 06/28 continue tx. constipation on KUB. Added senna to colace, ducolax given, may consider enema. 06/29: continue current mgmt. remains without stool. 06/30/2022 Patient withdrawn psychomotor retarded discussed with patient's staff option of possible ECT marked constipation without obstruction noted did not respond to enema. Reviewed case with hospitalist service given no obstruction bili soft no evidence of obstruction on abdominal x-ray start lactulose. Hold olanzapine given psychomotor retardation catatonic type symptoms would strongly consider option of ECT monitor for any evidence of abdominal obstruction Start lactulose. . Discontinue Olanzapine 07/01/22 Continue lactulose case reviewed with hospitalist service consider ECT renato zapine discontinued encourage fluids maintain clozapine at present dose secondary to constipation 07/04/22 Pt on golytely case reviewed extensively with the hospitalist service Dr. Hilton check clozapine level lithium level electrolytes abdominal x-ray nonobstructive pattern Patient educated on: medication risk/benefits and medical condition Informed Consent: further education needed Reason for contiued inpatient stay Substantial Risk for: inability to function, rapid decompensation and med/psych decompensation Time Spent With Patient Time: Total time managing care of this patient today __35__ minutes.
[2022-07-05] MEDS: Lactated Ringers 1,000 ML 125 ML IVCONT (01:56)
--- NOTE | 2022-07-05 05:21 | MHC.HEMONC ---
PT finished 4liters of (Golytely) Gavilyte solution at 310 am tolerated it well. Started to have liquid stools at 23:30 , 00:15, 00:30, 01:30 unable to determine consistency due to auto flush toilet.
[2022-07-05 08:59] VITALS: BP 145/85; PULSE 88; RESP 18; TEMP 36.6; O2SAT 95
[2022-07-05 08:59] LABS: Glucose, Whole Blood 96 mg/dL (60-115)
[2022-07-05] MEDS: Tamsulosin HCL 0.4 MG CAPSULE PO (09:01)
[2022-07-05] MEDS: metFORMIN HCl ER 500 MG TAB.ER.24H PO (09:02)
[2022-07-05] MEDS: Sertraline HCL 50 MG TABLET 150 MG PO (09:02)
[2022-07-05] MEDS: LORazepam 1 MG TABLET 2 MG PO ×2 (09:02→14:17)
--- NOTE | 2022-07-05 13:52 | MHC.SPEECHCO ---
OVEN ROASTER attempted to see patient twice today unsuccessfully. Per RN, Pt had too much difficulty with the Chopped/Advanced (NDD3) meats (cubed ham and cubed chicken) and thus [facility]ND[facility] Per his sitter today, he completed 75-100% of his tray.
--- NOTE | 2022-07-05 16:13 | HO.PSYCHPN ---
Subjective Subjective Date of Service: 07/05/22 Reason For Visit: psychosis Subjective Notes: Conditional Voluntary Guardianship: No Interim History: Patient with perhaps some slight improvement in mentation patient did respond well to goltely he is again moving his bowels has not responded to lorazepam increase to 2 t.i.d. Medication Compliance: Intermittent Attending Groups: No Review of Systems Severe constipation relieved Mental Status Exam Mental Status Exam Narrative: Appearance: wearing hospital gown, poor eye contact, snoring when sleeping Behavior: Superficially cooperative Psychomotor: retardation Speech- delayed in response rate, non-spontaneous TP: Marked poverty of content minimal responses but logical TC: Poverty of content Affect: constricted SI: none expressed HI: none expressed VH/AH: none expressed Delusions: no overt delusional content noted or reported. Insight/judgment: fair x 2. Memory/cog: Knows he is in a hospital. More informational able to tell me who his psychiatric provider is where he works Diagnostics Vital Signs (24Hr): Vital Signs - 24 hr 07/05/22 08:59 Temperature 97.8 F Pulse Rate 88 Respiratory Rate 18 Blood Pressure 145/85 H Pulse Oximetry 95 Oxygen Delivery Method Room Air BMI result Body Mass Index 32.1 Labs 07/02/22 07:37 07/02/22 07:37 Labs: Laboratory Results - last 48 hr 07/04/22 07/05/22 08:36 08:47 POC Glucose 98 96 Imaging Radiology Impressions: ITS Impressions Chest X-Ray 06/18/22 12:00 IMPRESSION: * Lungs are hypoinflated and right diaphragm elevated. * No evidence of pneumonia or congestive heart failure. KUB X-Ray 06/26/22 19:04 IMPRESSION: 1. Nonobstructive bowel gas pattern with a large colonic stool burden predominantly in the ascending colon and splenic flexure. KUB X-Ray 06/30/22 13:56 IMPRESSION: Large stool burden throughout the colon. Abdomen X-Ray 07/04/22 17:40 IMPRESSION: Large volume of stool in colon. Nonobstructive bowel pattern. Medications Medications Current Medications Acetaminophen (Acetaminophen 325 Mg Tablet) 650 mg PO Q6H PRN PRN Reason: Headache/Pain Mild Scale (1-3) Last Admin: 07/02/22 20:53 Dose: 650 mg Al Hydroxide/Mg Hydroxide (Magnesium Hydrox/Alum Hydrox 30 Ml Oral.Susp) 30 ml PO Q6H PRN PRN Reason: Heartburn/Nausea Clozapine 200 mg/ Clozapine 50 (mg) 250 mg PO BEDTIME COUNT INCLUDES [facility] Last Admin: 07/04/22 22:48 Dose: 250 mg Guaifenesin (Guaifenesin 200 Mg/10 Ml 10 Ml Liquid) 10 ml PO Q4H PRN PRN Reason: productive cough Last Admin: 06/18/22 20:27 Dose: 10 ml [place] Carbonate ([place] Carbonate 300 Mg Capsule) 600 mg PO BEDTIME COUNT INCLUDES [facility] Last Admin: 07/04/22 22:48 Dose: 600 mg Lorazepam (Lorazepam 1 Mg Tablet) 1 mg PO TID COUNT INCLUDES THE [facility] Magnesium Hydroxide (Milk Of Magnesia 30 Ml Oral.Susp) 30 ml PO DAILY PRN PRN Reason: Constipation Last Admin: 06/29/22 10:49 Dose: 30 ml Metformin HCl (Metformin Hcl Er 500 Mg Tab.Er.24h) 500 mg PO DAILY COUNT [facility]CLUDES [facility] Last Admin: 07/05/22 09:02 Dose: 500 mg Nicotine Polacrilex (Nicotine Polacrilex 2 Mg Gum) 4 mg BUCCAL Q2H PRN PRN Reason: Nicotine Cravings Olanzapine (Olanzapine 5 Mg Tablet) 5 mg PO TID PRN PRN Reason: agitation Last Admin: 06/25/22 20:14 Dose: 5 mg Sertraline HCl (Sertraline Hcl 50 Mg Tablet) 150 mg PO DAILY COUNT [facility]CLUDES [facility] Last Admin: 07/05/22 09:02 Dose: 150 mg Tamsulosin HCl (Tamsulosin Hcl 0.4 Mg Capsule) 0.4 mg PO DAILY COUNT INCLUDES [facility] Last Admin: 07/05/22 09:01 Dose: 0.4 mg Trazodone HCl (Trazodone Hcl 50 Mg Tablet) 50 mg PO BEDTIME PRN PRN Reason: Insomnia Allergies Allergies Allergy/AdvReac Type Severity Reaction Status Date / Time No Known Allergies [NKA] Allergy Unknown NONE Verified 04/14/22 14:20 Assessment & Plan Assessment & Plan (1) Schizophrenia, catatonic: Status: Acute Code(s): 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 Tenorio is a 56 year-old male with hx of schizophrenia, stable for some years until he had declined in past 2-3 week. His [facility] major case detective contacted crisis as pt not verbal, appeared confused, not his baseline. Pt did start ibuprofen recently and in combination with lithium concern was potential lithium toxicity. CHD provider noted jerk like movements which are not baseline. He did missed few doses prior to coming to the hospital. In the ED, lithium not toxic levels. However, it does seem some degree of underlying kidney disease with decrease creatinine clearance. Pt with s/s of catatonia including mutism, staring at wall, did improve once given ativan 2mg. He is on ativan 2mg po TID at home for years but may have missed some doses and in the ED ativan was ordered as PRN. Pt on clozaril but was restarted at 25mg po qhs given reports of pt missing more than 2 doses. He is currently on 50mg po qhs and will increase daily by 25mg. PLAN 1. Admit to M3, cv 15 minutes checks. 2. continue current medications.? continue titration of clozaril 50mg po qhs today, 75mg po qhs tomorrow. 3. obtain collateral information 4. Aftercare planning 06/15 continue tx. 06/16 increase ativan 2mg po QID. continue clozaril titration 06/17:? ativan increased from 2 mg TID to 2 mg QID today due to ongoing catatonia. 06/18: CXR no evidence of pneumonia or CHF. Monitor respiratory status. Continue psychiatric management. 06/19: Continue current tx plan. 06/20 lower ativan to 1mg po tid- pt appears more sedated than catatonic. .hypersalivation noted- ?rebound anticholigergic with lower dose of clozaril. Titrate clozaril to 125mg po qhs. Home? dose was 250mg po qhs. 06/21 continue current tx. continue to monitor sedation, O2sat. 06/22: stable.? no change in mgmt. 06/23: increase HS clozapine from 150 mg to 175 mg.? slightly less PMR. 06/24: appears sedated midday.? no increase in clozapine for today.? continue current mgmt. 06/25 continue tx. 06/26 did give extra dose of ativan with some effect. 06/27 continue tx. may increase ativan as pt more alert but mute and staring. 06/28 continue tx. constipation on KUB. Added senna to colace, ducolax given, may consider enema. 06/29: continue current mgmt. remains without stool. 06/30/2022 Patient withdrawn psychomotor retarded discussed with patient's staff option of possible ECT marked constipation without obstruction noted did not respond to enema. Reviewed case with hospitalist service given no obstruction bili soft no evidence of obstruction on abdominal x-ray start lactulose. Hold olanzapine given psychomotor retardation catatonic type symptoms would strongly consider option of ECT monitor for any evidence of abdominal obstruction Start lactulose. . Discontinue Olanzapine 07/01/22 Continue lactulose case reviewed with hospitalist service consider ECT olanzapine discontinued encourage fluids maintain clozapine at present dose secondary to constipation 07/04/22 Pt on golytely case reviewed extensively with the hospitalist service Dr. Hilton check clozapine level lithium level electrolytes abdominal x-ray nonobstructive pattern 07/05/2022 Patient intermittently with unsteady gait lower Ativan to 1 t.i.d. check lithium level and electrolytes coordinate with outpatient nurse practitioner Og Bryson continue clozapine sertraline Patient educated on: medication risk/benefits Informed Consent: further education needed Reason for contiued inpatient stay Substantial Risk for: inability to function, rapid decompensation and med/psych decompensation Time Spent With Patient Time: Total time managing care of this patient today _35___ minutes.
[2022-07-05 18:29] VITALS: BP 131/70; PULSE 85; RESP 18; TEMP 36.3; O2SAT 95
--- NOTE | 2022-07-05 18:43 | PC.NURSE ---
Peripheral IV removed from right arm. Catheter intact. No further bleeding. Site clean and dry.
[2022-07-05 19:49] LABS: Alanine Aminotransferase 9 U/L (0-40); Albumin Level 3.7 g/dL (3.5-5.0); Alkaline Phosphatase 60 U/L (39-117); Anion Gap 11 (12-20); Aspartate Amino Transferase 10 U/L (5-37); Bilirubin Total 0.4 mg/dL (0.0-1.0); Blood Urea Nitrogen 14 mg/dL (9-16); Calcium 8.8 mg/dL (8.4-10.2); Carbon Dioxide 31 mmol/L (22-29); Chloride 105 mmol/L (96-108); Creatinine Clr Calc Pharmacy 67.8; Estimated Glomerular Filt Rate 54; Glucose Random 142 mg/dL (60-115); Sodium 143 mmol/L (135-145); Total Protein 5.9 g/dL (6.5-8.0)
[2022-07-05 20:46] LABS: Lithium 0.53 mmol/L (0.60-1.20)
[2022-07-05] MEDS: cloZAPine 200 MG, cloZAPine 50 MG 250 MG PO (21:21)
[2022-07-05] MEDS: LORazepam 1 MG TABLET PO (21:21)
[2022-07-05] MEDS: Lithium Carbonate 300 MG CAPSULE 600 MG PO (21:21)
[2022-07-06 09:08] LABS: Glucose, Whole Blood 84 mg/dL (60-115)
[2022-07-06] MEDS: polyethylene glycoL 3350 17 GM POWD.PACK PO (09:38)
[2022-07-06] MEDS: Tamsulosin HCL 0.4 MG CAPSULE PO (09:39)
[2022-07-06] MEDS: metFORMIN HCl ER 500 MG TAB.ER.24H PO (09:39)
[2022-07-06] MEDS: Sertraline HCL 50 MG TABLET 150 MG PO (09:39)
[2022-07-06] MEDS: LORazepam 1 MG TABLET PO ×3 (09:40→20:36)
[2022-07-06] MEDS: Docusate Sodium 100 MG CAPSULE PO ×2 (09:40→20:37)
[2022-07-06 09:43] VITALS: BP 140/68; PULSE 81; TEMP 36.6; O2SAT 96
--- NOTE | 2022-07-06 10:44 | P.PNPSI_ITS ---
Subjective Subjective Date of Service: 07/06/22 Reason For Visit: psychosis Subjective Notes: Conditional Voluntary Interim History: Pt more talkative today. He reports sleeping better. He states he is able to talk better. He describes mood as depressed but denies SI/HI. He has been more visible but continues on one to one due to fall risk due to unsteady gait and catatonia. Per nursing, pt had several bowel movements. Pt denies any abdominal pain. Medication Compliance: Yes Diagnostics Vital Signs (24Hr): Vital Signs - 24 hr 07/05/22 18:29 07/06/22 09:43 Temperature 97.3 F 97.9 F Pulse Rate 85 81 Respiratory Rate 18 Blood Pressure 131/70 140/68 H Pulse Oximetry 95 96 Oxygen Delivery Method Room Air Room Air BMI result Body Mass Index 32.1 Labs 07/02/22 07:37 07/05/22 18:52 Labs: Laboratory Results - last 48 hr 07/05/22 07/05/22 07/05/22 08:47 18:52 18:52 Sodium 143 Potassium 4.0 Chloride 105 Carbon Dioxide 31 H Anion Gap 11 L BUN 14 Creatinine 1.36 Estim Creat Clear Calc 67.8 Estimated GFR 54 POC Glucose 96 Random Glucose 142 H Calcium 8.8 Total Bilirubin 0.4 AST 10 ALT 9 Alkaline Phosphatase 60 Total Protein 5.9 L Albumin 3.7 [place] 0.53 L 07/06/22 09:02 Sodium Potassium Chloride Carbon Dioxide Anion Gap BUN Creatinine Estim Creat Clear Calc Estimated GFR POC Glucose 84 Random Glucose Calcium Total Bilirubin AST ALT Alkaline Phosphatase Total Protein Albumin [place] Imaging Radiology Impressions: ITS Impressions Chest X-Ray 06/18/22 12:00 IMPRESSION: * Lungs are hypoinflated and right diaphragm elevated. * No evidence of pneumonia or congestive heart failure. KUB X-Ray 06/26/22 19:04 IMPRESSION: 1. Nonobstructive bowel gas pattern with a large colonic stool burden predominantly in the ascending colon and splenic flexure. KUB X-Ray 06/30/22 13:56 IMPRESSION: Large stool burden throughout the colon. Abdomen X-Ray 07/04/22 17:40 IMPRESSION: Large volume of stool in colon. Nonobstructive bowel pattern. Medications Medications Current Medications Acetaminophen (Acetaminophen 325 Mg Tablet) 650 mg PO Q6H PRN PRN Reason: Headache/Pain Mild Scale (1-3) Last Admin: 07/02/22 20:53 Dose: 650 mg Al Hydroxide/Mg Hydroxide (Magnesium Hydrox/Alum Hydrox 30 Ml Oral.Susp) 30 ml PO Q6H PRN PRN Reason: Heartburn/Nausea Clozapine 200 mg/ Clozapine 50 (mg) 250 mg PO BEDTIME [facility] Last Admin: 07/05/22 21:21 Dose: 250 mg Docusate Sodium (Docusate Sodium 100 Mg Capsule) 100 mg PO BID [facility] Last Admin: 07/06/22 09:40 Dose: 100 mg Guaifenesin (Guaifenesin 200 Mg/10 Ml 10 Ml Liquid) 10 ml PO Q4H PRN PRN Reason: productive cough Last Admin: 06/18/22 20:27 Dose: 10 ml [place] Carbonate ([place] Carbonate 300 Mg Capsule) 600 mg PO BEDTIME [facility] Last Admin: 07/05/22 21:21 Dose: 600 mg Lorazepam (Lorazepam 1 Mg Tablet) 1 mg PO TID [facility] Last Admin: 07/06/22 09:40 Dose: 1 mg Magnesium Hydroxide (Milk Of Magnesia 30 Ml Oral.Susp) 30 ml PO DAILY PRN PRN Reason: Constipation Last Admin: 06/29/22 10:49 Dose: 30 ml Metformin HCl (Metformin Hcl Er 500 Mg Tab.Er.24h) 500 mg PO DAILY [facility] Last Admin: 07/06/22 09:39 Dose: 500 mg Nicotine Polacrilex (Nicotine Polacrilex 2 Mg Gum) 4 mg BUCCAL Q2H PRN PRN Reason: Nicotine Cravings Olanzapine (Olanzapine 5 Mg Tablet) 5 mg PO TID PRN PRN Reason: agitation Last Admin: 06/25/22 20:14 Dose: 5 mg Polyethylene Glycol (Polyethylene Glycol 3350 17 Gm Powd.Pack) 17 gm PO DAILY [facility] Last Admin: 07/06/22 09:38 Dose: 17 gm Sertraline HCl (Sertraline Hcl 50 Mg Tablet) 150 mg PO DAILY [facility] Last Admin: 07/06/22 09:39 Dose: 150 mg Tamsulosin HCl (Tamsulosin Hcl 0.4 Mg Capsule) 0.4 mg PO DAILY [facility] Last Admin: 07/06/22 09:39 Dose: 0.4 mg Trazodone HCl (Trazodone Hcl 50 Mg Tablet) 50 mg PO BEDTIME PRN PRN Reason: Insomnia Allergies Allergies Allergy/AdvReac Type Severity Reaction Status Date / Time No Known Allergies [NKA] Allergy Unknown NONE Verified 04/14/22 14:20 Assessment & Plan Assessment & Plan (1) Schizophrenia, catatonic: Status: Acute Code(s): 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 Tenorio is a 56 year-old male with hx of schizophrenia, stable for some years until he had declined in past 2-[address] [facility] family service caseworker contacted crisis as pt not verbal, appeared confused, not his baseline. Pt did start ibuprofen recently and in combination with lithium concern was potential lithium toxicity. CHD provider noted jerk like movements which are not baseline. He did missed few doses prior to coming to the hospital. In the ED, lithium not toxic levels. However, it does seem some degree of underlying kidney disease with decrease creatinine clearance. Pt with s/s of catatonia including mutism, staring at wall, did improve once given ativan 2mg. He is on ativan 2mg po TID at home for years but may have missed some doses and in the ED ativan was ordered as PRN. Pt on clozaril but was restarted at 25mg po qhs given reports of pt missing more than 2 doses. He is currently on 50mg po qhs and will increase daily by 25mg. PLAN 1. Admit to M3, cv 15 minutes checks. 2. continue current medications.? continue titration of clozaril 50mg po qhs today, 75mg po qhs tomorrow. 3. obtain collateral information 4. Aftercare planning 06/15 continue tx. 06/16 increase ativan 2mg po QID. continue clozaril titration 06/17:? ativan increased from 2 mg TID to 2 mg QID today due to ongoing catatonia. 06/18: CXR no evidence of pneumonia or CHF. Monitor respiratory status. Continue psychiatric management. 06/19: Continue current tx plan. 06/20 lower ativan to 1mg po tid- pt appears more sedated than catatonic. .hypersalivation noted- ?rebound anticholigergic with lower dose of clozaril. Titrate clozaril to 125mg po qhs. Home? dose was 250mg po qhs. 06/21 continue current tx. continue to monitor sedation, O2sat. 06/22: stable.? no change in mgmt. 06/23: increase HS clozapine from 150 mg to 175 mg.? slightly less PMR. 06/24: appears sedated midday.? no increase in clozapine for today.? continue current mgmt. 06/25 continue tx. 06/26 did give extra dose of ativan with some effect. 06/27 continue tx. may increase ativan as pt more alert but mute and staring. 06/28 continue tx. constipation on KUB. Added senna to colace, ducolax given, may consider enema. 06/29: continue current mgmt. remains without stool. 06/30/2022 Patient withdrawn psychomotor retarded discussed with patient's staff option of possible ECT marked constipation without obstruction noted did not respond to enema. Reviewed case with hospitalist service given no obstruction bili soft no evidence of obstruction on abdominal x-ray start lactulose. Hold olanzapine given psychomotor retardation catatonic type symptoms would strongly consider option of ECT monitor for any evidence of abdominal obstruction Start lactulose. . Discontinue Olanzapine 07/01/22 Continue lactulose case reviewed with hospitalist service consider ECT olanzapine discontinued encourage fluids maintain clozapine at present dose secondary to constipation 07/04/22 Pt on golytely case reviewed extensively with the hospitalist service Dr. Hilton check clozapine level lithium level electrolytes abdominal x-ray nonobstructive pattern 07/05/2022 Patient intermittently with unsteady gait lower Ativan to 1 t.i.d. check lithium level and electrolytes coordinate with outpatient nurse practitioner Og Bryson continue clozapine sertraline 07/06 continue tx. Reason for contiued inpatient stay Substantial Risk for: inability to function Time Spent With Patient Time: Total time managing care of this patient today ____ minutes.
--- NOTE | 2022-07-06 14:11 | MHC.SL.SWA ---
Addendum entered and electronically signed by Nona Whitmore MA, CCC-MANAGER VOICE 07/07/22 12:30: D.S. Original Note: Risk of Aspiration Due to: Reduced Cognition Dysphasia Diet Status: No change Liquid Consistency and Strategies for Safe Swallow: Liquid Intake Recommendation: Thin Liquid Intake Strategies: Small Sips No Straws Solid Food Consistency: Dietary Recommendations: Grnd/Mech Altered (NDD2) Oral Medication Intake: Whole with Liquid Please contact the pharmacy regarding appropriate crushable or liquid drug formulations that are available whenever modified delivery is recommended. Compensatory Strategies and Precautions to be Taken for Safe Swallow: Sitting Upright (90 deg) Double Swallow No Straw Small Bites and Sips Alternate Liquids/Solids Rate of Ingestion Change Avoid Specific Foods Supervision While Eating and Drinking for Safe Swallow: Total Supervision (1:1) Foods to Avoid: Hard to chew solids Swallowing Recommended Treatments: Compens. Strategy Educat. Recommendation for Speech: Inpatient Speech Therapy Recommend continue on GROUND solids (NDD2) with Thin Liquids, pills whole with liquid, requiring 1-1 supervision/cuing. Cues: take small bites and sips, chew well, slow rate of ingestion, alternate solids and liquids, wait to introduce new bites until oral cavity is cleared. Dental Hygiene Teacher Clinican/Clinical Fellow: Yes: Lilliana Montenegro M.A., CF-MANAGER VOICE Supervisory Statement: I have reviewed and agree with the student/clinical fellow's documentation: N/A Speech Language Pathologist: Nona Whitmore M.A., CCC-MANAGER VOICE
[2022-07-06 20:00] VITALS: BP 120/63; PULSE 73; RESP 16; TEMP 36.7; O2SAT 94
[2022-07-06] MEDS: cloZAPine 200 MG, cloZAPine 50 MG 250 MG PO (20:36)
[2022-07-06] MEDS: Lithium Carbonate 300 MG CAPSULE 600 MG PO (20:37)
[2022-07-07 07:59] LABS: Glucose, Whole Blood 118 mg/dL (60-115)
[2022-07-07] MEDS: polyethylene glycoL 3350 17 GM POWD.PACK PO (08:26)
[2022-07-07] MEDS: metFORMIN HCl ER 500 MG TAB.ER.24H PO (08:27)
[2022-07-07] MEDS: Tamsulosin HCL 0.4 MG CAPSULE PO (08:27)
[2022-07-07] MEDS: Sertraline HCL 50 MG TABLET 150 MG PO (08:28)
[2022-07-07] MEDS: LORazepam 1 MG TABLET PO ×3 (08:28→20:22)
[2022-07-07] MEDS: Docusate Sodium 100 MG CAPSULE PO ×2 (08:29→20:22)
[2022-07-07 08:37] VITALS: BP 136/73; PULSE 72; TEMP 36.6; O2SAT 94
--- NOTE | 2022-07-07 09:45 | HO.PSYCHPN ---
Subjective Subjective Date of Service: 07/07/22 Reason For Visit: psychosis Subjective Notes: Conditional Voluntary Interim History: Patient flat blunted withdrawn does get out of bed encourage ambulation patient has been eating psychomotor retardation noted slowed mentation but improved Medication Compliance: Yes Mental Status Exam Mental Status Exam Narrative: Appearance: wearing hospital gown, poor eye contact, snoring when sleeping Behavior: Superficially cooperative Psychomotor: retardation Speech- delayed in response rate, non-spontaneous TP: Marked poverty of content minimal responses but logical TC: Poverty of content Affect: constricted SI: none expressed HI: none expressed VH/AH: none expressed Delusions: no overt delusional content noted or reported. Insight/judgment: fair x 2. Memory/cog: Knows he is in a hospital. Needs encouragement to ambulate get a bed X post to sunlight Diagnostics Vital Signs (24Hr): Vital Signs - 24 hr 07/06/22 20:00 07/07/22 08:37 Temperature 98.1 F 97.9 F Pulse Rate 73 72 Respiratory Rate 16 Blood Pressure 120/63 136/73 Pulse Oximetry 94 94 Oxygen Delivery Method Room Air Room Air BMI result Body Mass Index 32.1 Labs 07/02/22 07:37 07/05/22 18:52 Labs: Laboratory Results - last 48 hr 07/05/22 07/05/22 07/06/22 18:52 18:52 09:02 Sodium 143 Potassium 4.0 Chloride 105 Carbon Dioxide 31 H Anion Gap 11 L BUN 14 Creatinine 1.36 Estim Creat Clear Calc 67.8 Estimated GFR 54 POC Glucose 84 Random Glucose 142 H Calcium 8.8 Total Bilirubin 0.4 AST 10 ALT 9 Alkaline Phosphatase 60 Total Protein 5.9 L Albumin 3.7 [place] 0.53 L 07/07/22 07:55 Sodium Potassium Chloride Carbon Dioxide Anion Gap BUN Creatinine Estim Creat Clear Calc Estimated GFR POC Glucose 118 H Random Glucose Calcium Total Bilirubin AST ALT Alkaline Phosphatase Total Protein Albumin [place] Imaging Radiology Impressions: ITS Impressions Chest X-Ray 06/18/22 12:00 IMPRESSION: * Lungs are hypoinflated and right diaphragm elevated. * No evidence of pneumonia or congestive heart failure. KUB X-Ray 06/26/22 19:04 IMPRESSION: 1. Nonobstructive bowel gas pattern with a large colonic stool burden predominantly in the ascending colon and splenic flexure. KUB X-Ray 06/30/22 13:56 IMPRESSION: Large stool burden throughout the colon. Abdomen X-Ray 07/04/22 17:40 IMPRESSION: Large volume of stool in colon. Nonobstructive bowel pattern. Medications Medications Current Medications Acetaminophen (Acetaminophen 325 Mg Tablet) 650 mg PO Q6H PRN PRN Reason: Headache/Pain Mild Scale (1-3) Last Admin: 07/02/22 20:53 Dose: 650 mg Al Hydroxide/Mg Hydroxide (Magnesium Hydrox/Alum Hydrox 30 Ml Oral.Susp) 30 ml PO Q6H PRN PRN Reason: Heartburn/Nausea Clozapine 200 mg/ Clozapine 50 (mg) 250 mg PO BEDTIME [facility] Last Admin: 07/06/22 20:36 Dose: 250 mg Docusate Sodium (Docusate Sodium 100 Mg Capsule) 100 mg PO BID [facility] Last Admin: 07/07/22 08:29 Dose: 100 mg Guaifenesin (Guaifenesin 200 Mg/10 Ml 10 Ml Liquid) 10 ml PO Q4H PRN PRN Reason: productive cough Last Admin: 06/18/22 20:27 Dose: 10 ml [place] Carbonate ([place] Carbonate 300 Mg Capsule) 600 mg PO BEDTIME [facility] Last Admin: 07/06/22 20:37 Dose: 600 mg Lorazepam (Lorazepam 1 Mg Tablet) 1 mg PO TID [facility] Last Admin: 07/07/22 08:28 Dose: 1 mg Magnesium Hydroxide (Milk Of Magnesia 30 Ml Oral.Susp) 30 ml PO DAILY PRN PRN Reason: Constipation Last Admin: 06/29/22 10:49 Dose: 30 ml Metformin HCl (Metformin Hcl Er 500 Mg Tab.Er.24h) 500 mg PO DAILY [facility] Last Admin: 07/07/22 08:27 Dose: 500 mg Nicotine Polacrilex (Nicotine Polacrilex 2 Mg Gum) 4 mg [place] Q2H PRN PRN Reason: Nicotine Cravings Olanzapine (Olanzapine 5 Mg Tablet) 5 mg PO TID PRN PRN Reason: agitation Last Admin: 06/25/22 20:14 Dose: 5 mg Polyethylene Glycol (Polyethylene Glycol 3350 17 Gm Powd.Pack) 17 gm PO DAILY [facility] Last Admin: 07/07/22 08:26 Dose: 17 gm Sertraline HCl (Sertraline Hcl 50 Mg Tablet) 150 mg PO DAILY [facility] Last Admin: 07/07/22 08:28 Dose: 150 mg Tamsulosin HCl (Tamsulosin Hcl 0.4 Mg Capsule) 0.4 mg PO DAILY [facility] Last Admin: 07/07/22 08:27 Dose: 0.4 mg Trazodone HCl (Trazodone Hcl 50 Mg Tablet) 50 mg PO BEDTIME PRN PRN Reason: Insomnia Allergies Allergies Allergy/AdvReac Type Severity Reaction Status Date / Time No Known Allergies [NKA] Allergy Unknown NONE Verified 04/14/22 14:20 Assessment & Plan Assessment & Plan (1) Schizophrenia, catatonic: Status: Acute Code(s): 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 Tenorio is a 56 year-old male with hx of schizophrenia, stable for some years until he had declined in past 2-3 week. His [facility] therapeutic case manager contacted crisis as pt not verbal, appeared confused, not his baseline. Pt did start ibuprofen recently and in combination with lithium concern was potential lithium toxicity. CHD provider noted jerk like movements which are not baseline. He did missed few doses prior to coming to the hospital. In the ED, lithium not toxic levels. However, it does seem some degree of underlying kidney disease with decrease creatinine clearance. Pt with s/s of catatonia including mutism, staring at wall, did improve once given ativan 2mg. He is on ativan 2mg po TID at home for years but may have missed some doses and in the ED ativan was ordered as PRN. Pt on clozaril but was restarted at 25mg po qhs given reports of pt missing more than 2 doses. He is currently on 50mg po qhs and will increase daily by 25mg. PLAN 1. Admit to M3, cv 15 minutes checks. 2. continue current medications.? continue titration of clozaril 50mg po qhs today, 75mg po qhs tomorrow. 3. obtain collateral information 4. Aftercare planning 06/15 continue tx. 06/16 increase ativan 2mg po QID. continue clozaril titration 06/17:? ativan increased from 2 mg TID to 2 mg QID today due to ongoing catatonia. 06/18: CXR no evidence of pneumonia or CHF. Monitor respiratory status. Continue psychiatric management. 06/19: Continue current tx plan. 06/20 lower ativan to 1mg po tid- pt appears more sedated than catatonic. .hypersalivation noted- ?rebound anticholigergic with lower dose of clozaril. Titrate clozaril to 125mg po qhs. Home? dose was 250mg po qhs. 06/21 continue current tx. continue to monitor sedation, O2sat. 06/22: stable.? no change in mgmt. 06/23: increase HS clozapine from 150 mg to 175 mg.? slightly less PMR. 06/24: appears sedated midday.? no increase in clozapine for today.? continue current mgmt. 06/25 continue tx. 06/26 did give extra dose of ativan with some effect. 06/27 continue tx. may increase ativan as pt more alert but mute and staring. 06/28 continue tx. constipation on KUB. Added senna to colace, ducolax given, may consider enema. 06/29: continue current mgmt. remains without stool. 06/30/2022 Patient withdrawn psychomotor retarded discussed with patient's staff option of possible ECT marked constipation without obstruction noted did not respond to enema. Reviewed case with hospitalist service given no obstruction bili soft no evidence of obstruction on abdominal x-ray start lactulose. Hold olanzapine given psychomotor retardation catatonic type symptoms would strongly consider option of ECT monitor for any evidence of abdominal obstruction Start lactulose. . Discontinue Olanzapine 07/01/22 Continue lactulose case reviewed with hospitalist service consider ECT olanzapine discontinued encourage fluids maintain clozapine at present dose secondary to constipation 07/04/22 Pt on golytely case reviewed extensively with the hospitalist service Dr. Hilton check clozapine level lithium level electrolytes abdominal x-ray nonobstructive pattern 07/05/2022 Patient intermittently with unsteady gait lower Ativan to 1 t.i.d. check lithium level and electrolytes coordinate with outpatient nurse practitioner Og Bryson continue clozapine sertraline 07/06 continue tx. 07/07/2022 electrolytes ok ll .53 Encouraged exposure to light and ambulation continue Ativan sertraline Clozaril olanzapine p.r.n. Reason for contiued inpatient stay Substantial Risk for: inability to function, rapid decompensation and med/psych decompensation Time Spent With Patient Time: Total time managing care of this patient today ____ minutes.
[2022-07-07 20:20] VITALS: BP 139/82; PULSE 69; RESP 18; TEMP 36.6; O2SAT 96
[2022-07-07] MEDS: cloZAPine 200 MG, cloZAPine 50 MG 250 MG PO (20:21)
[2022-07-07] MEDS: Lithium Carbonate 300 MG CAPSULE 600 MG PO (20:22)
[2022-07-08 08:00] VITALS: BP 148/87; PULSE 79; RESP 18; TEMP 36.1; O2SAT 89
[2022-07-08 08:15] LABS: Glucose, Whole Blood 98 mg/dL (60-115)
[2022-07-08] MEDS: LORazepam 1 MG TABLET PO ×3 (08:23→21:00)
[2022-07-08] MEDS: Sertraline HCL 50 MG TABLET 150 MG PO (08:24)
[2022-07-08] MEDS: Docusate Sodium 100 MG CAPSULE 200 MG PO ×2 (08:24→21:01)
[2022-07-08] MEDS: Tamsulosin HCL 0.4 MG CAPSULE PO (08:25)
[2022-07-08] MEDS: metFORMIN HCl ER 500 MG TAB.ER.24H PO (08:25)
[2022-07-08] MEDS: polyethylene glycoL 3350 17 GM POWD.PACK PO (08:26)
--- NOTE | 2022-07-08 09:34 | P.PNPSI_ITS ---
Subjective Subjective Date of Service: 07/08/22 Reason For Visit: psychosis Subjective Notes: Conditional Voluntary Interim History: pt has been withdrawn fatigued gait reportedly improved flat blunted Medication Compliance: Yes Attending Groups: Intermittent Mental Status Exam Mental Status Exam Narrative: Appearance: wearing hospital gown, poor eye contact, snoring when sleeping Behavior: Superficially cooperative Psychomotor: retardation Speech- delayed in response rate, non-spontaneous TP: Marked poverty of content minimal responses but logical TC: Poverty of content Affect: constricted SI: none expressed HI: none expressed VH/AH: none expressed Delusions: no overt delusional content noted or reported. Insight/judgment: fair x 2. Memory/cog: Knows he is in a hospital. Needs encouragement to ambulate get a bed X post to sunlight Diagnostics Vital Signs (24Hr): Vital Signs - 24 hr 07/07/22 20:20 07/08/22 08:00 Temperature 97.9 F 97.0 F Pulse Rate 69 79 Respiratory Rate 18 18 Blood Pressure 139/82 148/87 H Pulse Oximetry 96 89 L Oxygen Delivery Method Room Air Room Air BMI result Body Mass Index 32.1 Labs 07/02/22 07:37 07/05/22 18:52 Labs: Laboratory Results - last 48 hr 07/07/22 07/08/22 07:55 08:09 POC Glucose 118 H 98 Imaging Radiology Impressions: ITS Impressions Chest X-Ray 06/18/22 12:00 IMPRESSION: * Lungs are hypoinflated and right diaphragm elevated. * No evidence of pneumonia or congestive heart failure. KUB X-Ray 06/26/22 19:04 IMPRESSION: 1. Nonobstructive bowel gas pattern with a large colonic stool burden predominantly in the ascending colon and splenic flexure. KUB X-Ray 06/30/22 13:56 IMPRESSION: Large stool burden throughout the colon. Abdomen X-Ray 07/04/22 17:40 IMPRESSION: Large volume of stool in colon. Nonobstructive bowel pattern. Medications Medications Current Medications Acetaminophen (Acetaminophen 325 Mg Tablet) 650 mg PO Q6H PRN PRN Reason: Headache/Pain Mild Scale (1-3) Last Admin: 07/02/22 20:53 Dose: 650 mg Al Hydroxide/Mg Hydroxide (Magnesium Hydrox/Alum Hydrox 30 Ml Oral.Susp) 30 ml PO Q6H PRN PRN Reason: Heartburn/Nausea Clozapine 200 mg/ Clozapine 50 (mg) 250 mg PO BEDTIME [facility] Last Admin: 07/07/22 20:21 Dose: 250 mg Docusate Sodium (Docusate Sodium 100 Mg Capsule) 200 mg PO BID [facility] Last Admin: 07/08/22 08:24 Dose: 200 mg Guaifenesin (Guaifenesin 200 Mg/10 Ml 10 Ml Liquid) 10 ml PO Q4H PRN PRN Reason: productive cough Last Admin: 06/18/22 20:27 Dose: 10 ml [place] Carbonate ([place] Carbonate 300 Mg Capsule) 600 mg PO BEDTIME [facility] Last Admin: 07/07/22 20:22 Dose: 600 mg Lorazepam (Lorazepam 1 Mg Tablet) 1 mg PO TID [facility] Last Admin: 07/08/22 08:23 Dose: 1 mg Magnesium Hydroxide (Milk Of Magnesia 30 Ml Oral.Susp) 30 ml PO DAILY PRN PRN Reason: Constipation Last Admin: 06/29/22 10:49 Dose: 30 ml Metformin HCl (Metformin Hcl Er 500 Mg Tab.Er.24h) 500 mg PO DAILY [facility] Last Admin: 07/08/22 08:25 Dose: 500 mg Nicotine Polacrilex (Nicotine Polacrilex 2 Mg Gum) 4 mg BUCCAL Q2H PRN PRN Reason: Nicotine Cravings Olanzapine (Olanzapine 5 Mg Tablet) 5 mg PO TID PRN PRN Reason: agitation Last Admin: 06/25/22 20:14 Dose: 5 mg Polyethylene Glycol (Polyethylene Glycol 3350 17 Gm Powd.Pack) 17 gm PO DAILY [facility] Last Admin: 07/08/22 08:26 Dose: 17 gm Sertraline HCl (Sertraline Hcl 50 Mg Tablet) 150 mg PO DAILY [facility] Last Admin: 07/08/22 08:24 Dose: 150 mg Tamsulosin HCl (Tamsulosin Hcl 0.4 Mg Capsule) 0.4 mg PO DAILY [facility] Last Admin: 07/08/22 08:25 Dose: 0.4 mg Trazodone HCl (Trazodone Hcl 50 Mg Tablet) 50 mg PO BEDTIME PRN PRN Reason: Insomnia Allergies Allergies Allergy/AdvReac Type Severity Reaction Status Date / Time No Known Allergies [NKA] Allergy Unknown NONE Verified 04/14/22 14:20 Assessment & Plan Assessment & Plan (1) Schizophrenia, catatonic: Status: Acute Code(s): 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 Jona is a 56 year-old male with hx of schizophrenia, stable for some years until he had declined in past 2-3 week. His [facility] disease case manager rn contacted crisis as pt not verbal, appeared confused, not his baseline. Pt did start ibuprofen recently and in combination with lithium concern was potential lithium toxicity. CHD provider noted jerk like movements which are not baseline. He did missed few doses prior to coming to the hospital. In the ED, lithium not toxic levels. However, it does seem some degree of underlying kidney disease with decrease creatinine clearance. Pt with s/s of catatonia including mutism, staring at wall, did improve once given ativan 2mg. He is on ativan 2mg po TID at home for years but may have missed some doses and in the ED ativan was ordered as PRN. Pt on clozaril but was restarted at 25mg po qhs given reports of pt missing more than 2 doses. He is currently on 50mg po qhs and will increase daily by 25mg. PLAN 1. Admit to M3, cv 15 minutes checks. 2. continue current medications.? continue titration of clozaril 50mg po qhs today, 75mg po qhs tomorrow. 3. obtain collateral information 4. Aftercare planning 06/15 continue tx. 06/16 increase ativan 2mg po QID. continue clozaril titration 06/17:? ativan increased from 2 mg TID to 2 mg QID today due to ongoing catatonia. 06/18: CXR no evidence of pneumonia or CHF. Monitor respiratory status. Continue psychiatric management. 06/19: Continue current tx plan. 06/20 lower ativan to 1mg po tid- pt appears more sedated than catatonic. .hypersalivation noted- ?rebound anticholigergic with lower dose of clozaril. Titrate clozaril to 125mg po qhs. Home? dose was 250mg po qhs. 06/21 continue current tx. continue to monitor sedation, O2sat. 06/22: stable.? no change in mgmt. 06/23: increase HS clozapine from 150 mg to 175 mg.? slightly less PMR. 06/24: appears sedated midday.? no increase in clozapine for today.? continue current mgmt. 06/25 continue tx. 06/26 did give extra dose of ativan with some effect. 06/27 continue tx. may increase ativan as pt more alert but mute and staring. 06/28 continue tx. constipation on KUB. Added senna to colace, ducolax given, may consider enema. 06/29: continue current mgmt. remains without stool. 06/30/2022 Patient withdrawn psychomotor retarded discussed with patient's staff option of possible ECT marked constipation without obstruction noted did not respond to enema. Reviewed case with hospitalist service given no obstruction bili soft no evidence of obstruction on abdominal x-ray start lactulose. Hold olanzapine given psychomotor retardation catatonic type symptoms would strongly consider option of ECT monitor for any evidence of abdominal obstruction Start lactulose. . Discontinue Olanzapine 07/01/22 Continue lactulose case reviewed with hospitalist service consider ECT olanzapine discontinued encourage fluids maintain clozapine at present dose secondary to constipation 07/04/22 Pt on golytely case reviewed extensively with the hospitalist service Dr. Hilton check clozapine level lithium level electrolytes abdominal x-ray nonobstructive pattern 07/05/2022 Patient intermittently with unsteady gait lower Ativan to 1 t.i.d. check lithium level and electrolytes coordinate with outpatient nurse practitioner Og Bryson continue clozapine sertraline 07/06 continue tx. 07/07/2022 electrolytes ok ll .53 Encouraged exposure to light and ambulation continue Ativan sertraline Clozaril olanzapine p.r.n. 07/08/22 Pt seen in f/u inc sertraline 200 mg inc donald 1.5 tid encourage walking oob more Reason for contiued inpatient stay Substantial Risk for: inability to function and rapid decompensation Time Spent With Patient Time: Total time managing care of this patient today ____ minutes.
--- NOTE | 2022-07-08 13:36 | MHC.SL.DTX ---
Dysphagia Diet modifications: Last documented Solid diet consistencies: Grnd/Mech Altered (NDD2) Last documented Liquid consistency: Thin Last documented Medication Administration: Changes made to current diet?: No Liquid Consistency and Strategies: Liquid Intake Recommendation: Thin Compensatory Strategies for Safe Swallow: Small Sips Compensatory Strategies for Safe Swallow(b): Sitting Upright (90 deg) Double Swallow Small Bites and Sips Alternate Liquids/Solids Rate of Ingestion Change Avoid Specific Foods Solid Food Consistency: Dietary Recommendations: Grnd/Mech Altered (NDD2) Additional Modifications to Solids: Pt w/ mild oral phase dysphagia 2nd to current mental state. Oral phase characterized by prolonged, slow mastication pattern and pocketing of solid foods. Recommend DOWNGRADE to GROUND/MECH ALTERED (NDD2) solids at this time and continue on THIN liquids, pills WHOLE or CRUSHED in PUREE per pt's tolerance. Discussed with nursing staff on unit. Recommend total supervision, provide cues throughout meals as needed. Pt must be awake and alert for presentation of PO, minimize distractions during meals. Ensure pt is taking small bites and adequately chewing food before swallowing. Alternate solids and liquids to promote oral clearance. Oral cavity to be clear before taking more bites. Upright 90 degree position when eating and drinking. Diet order updated by CHIEF SALES OFFICER. Notified care team (MD, RN, RD) via Ramer Message. CHIEF SALES OFFICER will continue to follow. Oral Medication Intake: Whole with Liquid Strategies and Precautions to be Taken for Safe Swallow: Sitting Upright (90 deg) Double Swallow Small Bites and Sips Alternate Liquids/Solids Rate of Ingestion Change Avoid Specific Foods Supervision While Eating and/Drinking: Total Supervision (1:1) Foods to Avoid: Hard to chew solids Swallowing Recommended Treatments: Compens. Strategy Educat. Level of Impact on: Daily activities: None Interpersonal interactions: Education: None Employment: None Community: Mild Prognosis for Improvement: Good Recommendation for Speech: Inpatient Speech Therapy Comment: Recommend GROUND/MECH ALTERED solids (NDD2), thin liquids, pills whole w/ liquid. CHIEF SALES OFFICER to continue to follow. Recommend total supervision, provide cues throughout meals as needed. Pt must be awake and alert for presentation of PO, minimize distractions during meals. Ensure pt is taking small bites and adequately chewing food before swallowing. Alternate solids and liquids to promote oral clearance. Oral cavity to be clear before taking more bites. Upright 90 degree position when eating and drinking. Recommended cues: take small bites/sips, slow rate of ingestion, and wait to introduce additional bites/sips until oral cavity is cleared Frequency/Duration: Date Range for Service Req: Timeline to reassess: Additional Comments: Treatment: Per RN report, Pt had difficulty with a meal provided to him that contained large cubes of ham and another of chicken, thus he was down graded by the MD to Ground Solids. Today's sitter reports that he ate 75%-100% of his meal (not the soup) and no new reports of difficulty have been presented in the medical record since his downgrade. Today he tolerated Thin Liquids with no overt s/s of aspiration. He tolerate Puree Solids and Advanced Solids (Jose Cracker in Pudding) with adequate mastication time and oral clearance. Subsequent swallows of thin liquids resulted in no overt s/s of aspiration. Pt has been stable on this diet and no further potential for upgrade exist under his current condition. No further CHIEF SALES OFFICER service required at this time. Please re-refer if status changes. Assessment: Belt Measurer Clinican/Clinical Fellow: No: Lilliana Montenegro M.A., [facility]-CHIEF SALES OFFICER Supervisory Statement: I have reviewed and agree with the student/clinical fellow's documentation: N/A Speech Language Pathologist: Jet Serrano M.A., [facility]-CHIEF SALES OFFICER
[2022-07-08] MEDS: cloZAPine 200 MG, cloZAPine 50 MG 250 MG PO (21:00)
[2022-07-08] MEDS: Lithium Carbonate 300 MG CAPSULE 600 MG PO (21:01)
[2022-07-08 21:03] VITALS: BP 132/60; PULSE 64; RESP 16; TEMP 36.5; O2SAT 97
[2022-07-09 07:31] LABS: Neut%MD 67.4 %; Neutrophils Absolute Auto 4.5 x10*3/uL (2.0-8.3); WBCANC 6.7 X10*3/uL
[2022-07-09 08:40] VITALS: BP 115/71; PULSE 74; RESP 18; TEMP 36.3; O2SAT 99
[2022-07-09] MEDS: Sertraline HCL 100 MG TABLET 200 MG PO (08:45)
[2022-07-09] MEDS: Docusate Sodium 100 MG CAPSULE 200 MG PO ×2 (08:46→20:50)
[2022-07-09] MEDS: LORazepam 1 MG TABLET PO ×3 (08:47→20:49)
[2022-07-09] MEDS: polyethylene glycoL 3350 17 GM POWD.PACK PO (08:48)
[2022-07-09] MEDS: Tamsulosin HCL 0.4 MG CAPSULE PO (08:48)
[2022-07-09] MEDS: metFORMIN HCl ER 500 MG TAB.ER.24H PO (08:48)
--- NOTE | 2022-07-09 14:32 | PC.NURSE ---
Patient showered independently, agreed to join TW for a walk around the unit x1.5. Per 1:1 eating current diet w/o difficulty, no coughing noted.
--- NOTE | 2022-07-09 16:34 | P.PNPSI_ITS ---
Subjective Subjective Date of Service: 07/09/22 Reason For Visit: psychosis Subjective Notes: Conditional Voluntary Guardianship: No Interim History: Patient out of bed more shows some improvement. Patient is able to relate he is experiencing auditory hallucinations Review of Systems Medical Review of Systems: unchanged Mental Status Exam Mental Status Exam Narrative: Appearance: poor eye contact, sitting in kitchen Behavior: Superficially cooperative Psychomotor: retardation Speech- delayed in response rate, non-spontaneous TP: Marked poverty of content minimal responses but logical TC: States he is depressed experiencing auditory hallucinations Affect: constricted SI: none expressed HI: none expressed VH/AH: Auditory hallucinations Delusions: no overt delusional content noted or reported. Insight/judgment: fair x 2. Memory/cog: Knows he is in a hospital. Needs encouragement to ambulate get a bed X post to sunlight Diagnostics Vital Signs (24Hr): Vital Signs - 24 hr 07/08/22 21:03 07/09/22 08:40 Temperature 97.7 F 97.4 F Pulse Rate 64 74 Respiratory Rate 16 18 Blood Pressure 132/60 115/71 Pulse Oximetry 97 99 Oxygen Delivery Method Room Air Room Air BMI result Body Mass Index 32.1 Labs 07/02/22 07:37 07/05/22 18:52 Labs: Laboratory Results - last 48 hr 07/08/22 07/09/22 08:09 07:07 Absolute Neuts (auto) 4.5 POC Glucose 98 Imaging Radiology Impressions: ITS Impressions Chest X-Ray 06/18/22 12:00 IMPRESSION: * Lungs are hypoinflated and right diaphragm elevated. * No evidence of pneumonia or congestive heart failure. KUB X-Ray 06/26/22 19:04 IMPRESSION: 1. Nonobstructive bowel gas pattern with a large colonic stool burden predominantly in the ascending colon and splenic flexure. KUB X-Ray 06/30/22 13:56 IMPRESSION: Large stool burden throughout the colon. Abdomen X-Ray 07/04/22 17:40 IMPRESSION: Large volume of stool in colon. Nonobstructive bowel pattern. Medications Medications Current Medications Acetaminophen (Acetaminophen 325 Mg Tablet) 650 mg PO Q6H PRN PRN Reason: Headache/Pain Mild Scale (1-3) Last Admin: 07/02/22 20:53 Dose: 650 mg Al Hydroxide/Mg Hydroxide (Magnesium Hydrox/Alum Hydrox 30 Ml Oral.Susp) 30 ml PO Q6H PRN PRN Reason: Heartburn/Nausea Clozapine 200 mg/ Clozapine 50 (mg) 250 mg PO BEDTIME [facility] Last Admin: 07/08/22 21:00 Dose: 250 mg Docusate Sodium (Docusate Sodium 100 Mg Capsule) 200 mg PO BID [facility] Last Admin: 07/09/22 08:46 Dose: 200 mg Guaifenesin (Guaifenesin 200 Mg/10 Ml 10 Ml Liquid) 10 ml PO Q4H PRN PRN Reason: productive cough Last Admin: 06/18/22 20:27 Dose: 10 ml [place] Carbonate ([place] Carbonate 300 Mg Capsule) 600 mg PO BEDTIME [facility] Last Admin: 07/08/22 21:01 Dose: 600 mg Lorazepam (Lorazepam 1 Mg Tablet) 1 mg PO TID [facility] Last Admin: 07/09/22 14:31 Dose: 1 mg Magnesium Hydroxide (Milk Of Magnesia 30 Ml Oral.Susp) 30 ml PO DAILY PRN PRN Reason: Constipation Last Admin: 06/29/22 10:49 Dose: 30 ml Metformin HCl (Metformin Hcl Er 500 Mg Tab.Er.24h) 500 mg PO DAILY [facility] Last Admin: 07/09/22 08:48 Dose: 500 mg Nicotine Polacrilex (Nicotine Polacrilex 2 Mg Gum) 4 mg BUCCAL Q2H PRN PRN Reason: Nicotine Cravings Olanzapine (Olanzapine 5 Mg Tablet) 5 mg PO TID PRN PRN Reason: agitation Last Admin: 06/25/22 20:14 Dose: 5 mg Polyethylene Glycol (Polyethylene Glycol 3350 17 Gm Powd.Pack) 17 gm PO DAILY [facility] Last Admin: 07/09/22 08:48 Dose: 17 gm Sertraline HCl (Sertraline Hcl 100 Mg Tablet) 200 mg PO DAILY [facility] Last Admin: 07/09/22 08:45 Dose: 200 mg Tamsulosin HCl (Tamsulosin Hcl 0.4 Mg Capsule) 0.4 mg PO DAILY [facility] Last Admin: 07/09/22 08:48 Dose: 0.4 mg Trazodone HCl (Trazodone Hcl 50 Mg Tablet) 50 mg PO BEDTIME PRN PRN Reason: Insomnia Allergies Allergies Allergy/AdvReac Type Severity Reaction Status Date / Time No Known Allergies [NKA] Allergy Unknown NONE Verified 04/14/22 14:20 Assessment & Plan Assessment & Plan (1) Schizophrenia, catatonic: Status: Acute Code(s): 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 Tenorio is a 56 year-old male with hx of schizophrenia, stable for some years until he had declined in past 2-3 week. His [facility] case management social worker contacted crisis as pt not verbal, appeared confused, not his baseline. Pt did start ibuprofen recently and in combination with lithium concern was potential lithium toxicity. [facility] provider noted jerk like movements which are not baseline. He did missed few doses prior to coming to the hospital. In the ED, lithium not toxic levels. However, it does seem some degree of underlying kidney disease with decrease creatinine clearance. Pt with s/s of catatonia including mutism, staring at wall, did improve once given ativan 2mg. He is on ativan 2mg po TID at home for years but may have missed some doses and in the ED ativan was ordered as PRN. Pt on clozaril but was restarted at 25mg po qhs given reports of pt missing more than 2 doses. He is currently on 50mg po qhs and will increase daily by 25mg. PLAN 1. Admit to M3, cv 15 minutes checks. 2. continue current medications.? continue titration of clozaril 50mg po qhs today, 75mg po qhs tomorrow. 3. obtain collateral information 4. Aftercare planning 06/15 continue tx. 06/16 increase ativan 2mg po QID. continue clozaril titration 06/17:? ativan increased from 2 mg TID to 2 mg QID today due to ongoing catatonia. 06/18: CXR no evidence of pneumonia or CHF. Monitor respiratory status. Continue psychiatric management. 06/19: Continue current tx plan. 06/20 lower ativan to 1mg po tid- pt appears more sedated than catatonic. .hypersalivation noted- ?rebound anticholigergic with lower dose of clozaril. Titrate clozaril to 125mg po qhs. Home? dose was 250mg po qhs. 06/21 continue current tx. continue to monitor sedation, O2sat. 06/22: stable.? no change in mgmt. 06/23: increase HS clozapine from 150 mg to 175 mg.? slightly less PMR. 06/24: appears sedated midday.? no increase in clozapine for today.? continue current mgmt. 06/25 continue tx. 06/26 did give extra dose of ativan with some effect. 06/27 continue tx. may increase ativan as pt more alert but mute and staring. 06/28 continue tx. constipation on KUB. Added senna to colace, ducolax given, may consider enema. 06/29: continue current mgmt. remains without stool. 06/30/2022 Patient withdrawn psychomotor retarded discussed with patient's staff option of possible ECT marked constipation without obstruction noted did not respond to enema. Reviewed case with hospitalist service given no obstruction bili soft no evidence of obstruction on abdominal x-ray start lactulose. Hold olanzapine given psychomotor retardation catatonic type symptoms would strongly consider option of ECT monitor for any evidence of abdominal obstruction Start lactulose. . Discontinue Olanzapine 07/01/22 Continue lactulose case reviewed with hospitalist service consider ECT olanzapine discontinued encourage fluids maintain clozapine at present dose secondary to constipation 07/04/22 Pt on golytely case reviewed extensively with the hospitalist service Dr. Hilton check clozapine level lithium level electrolytes abdominal x-ray nonobstructive pattern 07/05/2022 Patient intermittently with unsteady gait lower Ativan to 1 t.i.d. check lithium level and electrolytes coordinate with outpatient nurse practitioner gO Bryson continue clozapine sertraline 07/06 continue tx. 07/07/2022 electrolytes ok ll .53 Encouraged exposure to light and ambulation continue Ativan sertraline Clozaril olanzapine p.r.n. 07/08/22 Pt seen in f/u inc sertraline 200 mg inc donald 1.5 tid encourage walking oob more 07/09/2022 Patient seen in the kitchen there is some increased range of affect Reason for continued inpatient stay Substantial Risk for: inability to function, rapid decompensation and med/psych decompensation Time Spent With Patient Time: Total time managing care of this patient today ____ minutes.
[2022-07-09 20:45] VITALS: BP 124/72; PULSE 67; RESP 18; TEMP 36; O2SAT 96
[2022-07-09] MEDS: cloZAPine 200 MG, cloZAPine 50 MG 250 MG PO (20:49)
[2022-07-09] MEDS: Lithium Carbonate 300 MG CAPSULE 600 MG PO (20:50)
[2022-07-09] MEDS: Sennosides 8.6 MG TABLET 17.2 MG PO (20:50)
[2022-07-10 02:12] LABS: Glucose, Whole Blood 100 mg/dL (60-115)
--- NOTE | 2022-07-10 05:35 | PC.NURSE ---
New order for clozaril 275 mg not given at HS as order entered after previous ordered dose of 250 mg already administered.
[2022-07-10 08:30] VITALS: BP 121/66; PULSE 72; RESP 16; TEMP 36.6; O2SAT 90
[2022-07-10] MEDS: metFORMIN HCl ER 500 MG TAB.ER.24H PO (08:40)
[2022-07-10] MEDS: Docusate Sodium 100 MG CAPSULE 200 MG PO ×2 (08:40→21:08)
[2022-07-10] MEDS: Tamsulosin HCL 0.4 MG CAPSULE PO (08:40)
[2022-07-10] MEDS: Sertraline HCL 100 MG TABLET 200 MG PO (08:40)
[2022-07-10] MEDS: polyethylene glycoL 3350 17 GM POWD.PACK PO (08:40)
[2022-07-10] MEDS: LORazepam 1 MG TABLET PO ×3 (08:40→21:35)
[2022-07-10 08:50] LABS: Glucose, Whole Blood 104 mg/dL (60-115)
[2022-07-10 20:05] VITALS: BP 130/66; PULSE 75; RESP 16; TEMP 36.2; O2SAT 97
[2022-07-10] MEDS: cloZAPine 25 MG TABLET 75 MG PO (21:06)
[2022-07-10] MEDS: cloZAPine 100 MG TABLET 200 MG PO (21:06)
[2022-07-10] MEDS: Lithium Carbonate 300 MG CAPSULE 600 MG PO (21:08)
[2022-07-10] MEDS: Sennosides 8.6 MG TABLET 17.2 MG PO (21:08)
--- NOTE | 2022-07-10 21:28 | P.PNPSI_ITS ---
Subjective Subjective Date of Service: 07/10/22 Reason For Visit: psychosis Subjective Notes: Conditional Voluntary Healthcare Proxy: No Guardianship: No Medical Problems Affecting Mental Status: No Interim History: The patient more active and engaged. Not sleeping in his room for most the day like he had been previously more verbal regarding hallucinations feeling depressed denies SI Medication Compliance: Yes Side effects from medications: Yes (Constipation) Mental Status Exam Mental Status Exam Narrative: Appearance: poor eye contact, sitting in kitchen Behavior: Superficially cooperative Psychomotor: retardation Speech- delayed in response rate, non-spontaneous TP: logical concrete TC: States he is depressed experiencing auditory hallucinations Affect: constricted SI: none expressed HI: none expressed VH/AH: Auditory hallucinations Delusions: no overt delusional content noted or reported. Insight/judgment: fair x 2. Memory/cog: Diagnostics Vital Signs (24Hr): Vital Signs - 24 hr 07/10/22 08:30 07/10/22 20:05 Temperature 97.8 F 97.1 F Pulse Rate 72 75 Respiratory Rate 16 16 Blood Pressure 121/66 130/66 Pulse Oximetry 90 L 97 Oxygen Delivery Method Room Air Room Air BMI result Body Mass Index 32.1 Labs 07/02/22 07:37 07/05/22 18:52 Labs: Laboratory Results - last 48 hr 07/09/22 07/09/22 07/10/22 07:07 08:44 08:38 Absolute Neuts (auto) 4.5 POC Glucose 100 104 Imaging Radiology Impressions: ITS Impressions Chest X-Ray 06/18/22 12:00 IMPRESSION: * Lungs are hypoinflated and right diaphragm elevated. * No evidence of pneumonia or congestive heart failure. KUB X-Ray 06/26/22 19:04 IMPRESSION: 1. Nonobstructive bowel gas pattern with a large colonic stool burden predominantly in the ascending colon and splenic flexure. KUB X-Ray 06/30/22 13:56 IMPRESSION: Large stool burden throughout the colon. Abdomen X-Ray 07/04/22 17:40 IMPRESSION: Large volume of stool in colon. Nonobstructive bowel pattern. Medications Medications Current Medications Acetaminophen (Acetaminophen 325 Mg Tablet) 650 mg PO Q6H PRN PRN Reason: Headache/Pain Mild Scale (1-3) Last Admin: 07/02/22 20:53 Dose: 650 mg Al Hydroxide/Mg Hydroxide (Magnesium Hydrox/Alum Hydrox 30 Ml Oral.Susp) 30 ml PO Q6H PRN PRN Reason: Heartburn/Nausea Clozapine (Clozapine 25 Mg Tablet) 75 mg PO BEDTIME [facility] Last Admin: 07/10/22 21:06 Dose: 75 mg Clozapine (Clozapine 100 Mg Tablet) 200 mg PO BEDTIME [facility] Last Admin: 07/10/22 21:06 Dose: 200 mg Docusate Sodium (Docusate Sodium 100 Mg Capsule) 200 mg PO BID [facility] Last Admin: 07/10/22 21:08 Dose: 200 mg Guaifenesin (Guaifenesin 200 Mg/10 Ml 10 Ml Liquid) 10 ml PO Q4H PRN PRN Reason: productive cough Last Admin: 06/18/22 20:27 Dose: 10 ml [place] Carbonate ([place] Carbonate 300 Mg Capsule) 600 mg PO BEDTIME [facility] Last Admin: 07/10/22 21:08 Dose: 600 mg Magnesium Hydroxide (Milk Of Magnesia 30 Ml Oral.Susp) 30 ml PO DAILY PRN PRN Reason: Constipation Last Admin: 06/29/22 10:49 Dose: 30 ml Metformin HCl (Metformin Hcl Er 500 Mg Tab.Er.24h) 500 mg PO DAILY [facility] Last Admin: 07/10/22 08:40 Dose: 500 mg Nicotine Polacrilex (Nicotine Polacrilex 2 Mg Gum) 4 mg BUCCAL Q2H PRN PRN Reason: Nicotine Cravings Olanzapine (Olanzapine 5 Mg Tablet) 5 mg PO TID PRN PRN Reason: agitation Last Admin: 06/25/22 20:14 Dose: 5 mg Polyethylene Glycol (Polyethylene Glycol 3350 17 Gm Powd.Pack) 17 gm PO DAILY [facility] Last Admin: 07/10/22 08:40 Dose: 17 gm Senna (Sennosides 8.6 Mg Tablet) 17.2 mg PO BEDTIME [facility] Last Admin: 07/10/22 21:08 Dose: 17.2 mg Sertraline HCl (Sertraline Hcl 100 Mg Tablet) 200 mg PO DAILY [facility] Last Admin: 07/10/22 08:40 Dose: 200 mg Tamsulosin HCl (Tamsulosin Hcl 0.4 Mg Capsule) 0.4 mg PO DAILY [facility] Last Admin: 07/10/22 08:40 Dose: 0.4 mg Trazodone HCl (Trazodone Hcl 50 Mg Tablet) 50 mg PO BEDTIME PRN PRN Reason: Insomnia Allergies Allergies Allergy/AdvReac Type Severity Reaction Status Date / Time No Known Allergies [NKA] Allergy Unknown NONE Verified 04/14/22 14:20 Assessment & Plan Assessment & Plan (1) Schizophrenia, catatonic: Status: Acute Code(s): 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 Tenorio is a 56 year-old male with hx of schizophrenia, stable for some years until he had declined in past 2-3 week. His [facility] family independence case manager contacted crisis as pt not verbal, appeared confused, not his baseline. Pt did start ibuprofen recently and in combination with lithium concern was potential lithium toxicity. [facility] provider noted jerk like movements which are not baseline. He did missed few doses prior to coming to the hospital. In the ED, lithium not toxic levels. However, it does seem some degree of underlying kidney disease with decrease creatinine clearance. Pt with s/s of catatonia including mutism, staring at wall, did improve once given ativan 2mg. He is on ativan 2mg po TID at home for years but may have missed some doses and in the ED ativan was ordered as PRN. Pt on clozaril but was restarted at 25mg po qhs given reports of pt missing more than 2 doses. He is currently on 50mg po qhs and will increase daily by 25mg. PLAN 1. Admit to M3, cv 15 minutes checks. 2. continue current medications.? continue titration of clozaril 50mg po qhs today, 75mg po qhs tomorrow. 3. obtain collateral information 4. Aftercare planning 06/15 continue tx. 06/16 increase ativan 2mg po QID. continue clozaril titration 06/17:? ativan increased from 2 mg TID to 2 mg QID today due to ongoing catatoni a. 06/18: CXR no evidence of pneumonia or CHF. Monitor respiratory status. Continue psychiatric management. 06/19: Continue current tx plan. 06/20 lower ativan to 1mg po tid- pt appears more sedated than catatonic. .hypersalivation noted- ?rebound anticholigergic with lower dose of clozaril. Titrate clozaril to 125mg po qhs. Home? dose was 250mg po qhs. 06/21 continue current tx. continue to monitor sedation, O2sat. 06/22: stable.? no change in mgmt. 06/23: increase HS clozapine from 150 mg to 175 mg.? slightly less PMR. 06/24: appears sedated midday.? no increase in clozapine for today.? continue cu rrent mgmt. 06/25 continue tx. 06/26 did give extra dose of ativan with some effect. 06/27 continue tx. may increase ativan as pt more alert but mute and staring. 06/28 continue tx. constipation on KUB. Added senna to colace, ducolax given, may consider enema. 06/29: continue current mgmt. remains without stool. 06/30/2022 Patient withdrawn psychomotor retarded discussed with patient's staff option of possible ECT marked constipation without obstruction noted did not respond to enema. Reviewed case with hospitalist service given no obstruction bili soft no evidence of obstruction on abdominal x-ray start lactulose. Hold olanzapine given psychomotor retardation catatonic type symptoms would strongly consider option of ECT monitor for any evidence of abdominal obstruction Start lactulose. . Discontinue Olanzapine 07/01/22 Continue lactulose case reviewed with hospitalist service consider ECT olanz apine discontinued encourage fluids maintain clozapine at present dose secondary to constipation 07/04/22 Pt on golytely case reviewed extensively with the hospitalist service Dr. Hilton check clozapine level lithium level electrolytes abdominal x-ray nonobstructive pattern 07/05/2022 Patient intermittently with unsteady gait lower Ativan to 1 t.i.d. check lithium level and electrolytes coordinate with outpatient nurse practitioner Og Bryson continue clozapine sertraline 07/06 continue tx. 07/07/2022 electrolytes ok ll .53 Encouraged exposure to light and ambulation continue Ativan sertraline Clozaril olanzapine p.r.n. 07/08/22 Pt seen in f/u inc sertraline 200 mg inc donald 1.5 tid encourage walking oob more 07/09/2022 Patient seen in the kitchen there is some increased range of affect 07/10/2022 Patient continues to show some improvement Better they will functioning sertraline has been increased to 200 mg clozapine increased 300 mg Monitor for over sedation constipation encourage had a bed continue lorazepam for catatonia Reason for continued inpatient stay Substantial Risk for: inability to function and rapid decompensation Time Spent With Patient Time: Total time managing care of this patient today ____ minutes.
[2022-07-11 06:43] LABS: Clozapine (Clozaril) 388 mcg/L; Norclozapine 225 mcg/L (25-400)
[2022-07-11 08:24] LABS: Glucose, Whole Blood 96 mg/dL (60-115)
[2022-07-11] MEDS: polyethylene glycoL 3350 17 GM POWD.PACK PO (08:27)
[2022-07-11] MEDS: Tamsulosin HCL 0.4 MG CAPSULE PO (08:29)
[2022-07-11] MEDS: Sertraline HCL 100 MG TABLET 200 MG PO (08:29)
[2022-07-11] MEDS: Docusate Sodium 100 MG CAPSULE 200 MG PO ×2 (08:29→21:04)
[2022-07-11] MEDS: metFORMIN HCl ER 500 MG TAB.ER.24H PO (08:30)
[2022-07-11] MEDS: LORazepam 1 MG TABLET PO ×3 (08:30→21:04)
[2022-07-11 08:39] VITALS: BP 130/70; PULSE 70; TEMP 36.3; O2SAT 96
--- NOTE | 2022-07-11 13:08 | P.PNPSI_ITS ---
Subjective Subjective Date of Service: 07/11/22 Reason For Visit: psychosis Interim History: the nursing staff reported that his fasting blood sugars was 96 today, he has been cooperative and compliant with treatment. He reported some auditory hallucinations but much better. On interview the patient had a very severe delayed response but no active psychotic symptoms, able to contract for safety Mental Status Exam Mental Status Exam Patient Appearance: Appropriate Patient Orientation: Person and Situation Level of Consciousness: Awake and Appropriate Patient Behavior: Guarded Mood Description: Withdrawn Affect Description: Blunted Patient Cognition Impaired: No Ability to Follow Directions: Good Speech Pattern: Impoverished and Difficulty Finding Words Hallucinations: Auditory Delusions: Paranoid Ideation Thought Process: Slowed Thinking Thought Content: positive for Poverty of Content and positive for Thought Blocking Judgement: Fair Diagnostics Vital Signs (24Hr): Vital Signs - 24 hr 07/10/22 20:05 07/11/22 08:39 Temperature 97.1 F 97.3 F Pulse Rate 75 70 Respiratory Rate 16 Blood Pressure 130/66 130/70 Pulse Oximetry 97 96 Oxygen Delivery Method Room Air Room Air BMI result Body Mass Index 32.1 Labs 07/02/22 07:37 07/05/22 18:52 Labs: Laboratory Results - last 48 hr 07/06/22 07/09/22 07/10/22 12:19 08:44 08:38 POC Glucose 100 104 Clozapine 388 Norclozapine 225 07/11/22 08:20 POC Glucose 96 Clozapine Norclozapine Imaging Radiology Impressions: ITS Impressions Chest X-Ray 06/18/22 12:00 IMPRESSION: * Lungs are hypoinflated and right diaphragm elevated. * No evidence of pneumonia or congestive heart failure. KUB X-Ray 06/26/22 19:04 IMPRESSION: 1. Nonobstructive bowel gas pattern with a large colonic stool burden predominantly in the ascending colon and splenic flexure. KUB X-Ray 06/30/22 13:56 IMPRESSION: Large stool burden throughout the colon. Abdomen X-Ray 07/04/22 17:40 IMPRESSION: Large volume of stool in colon. Nonobstructive bowel pattern. Medications Medications Current Medications Acetaminophen (Acetaminophen 325 Mg Tablet) 650 mg PO Q6H PRN PRN Reason: Headache/Pain Mild Scale (1-3) Last Admin: 07/02/22 20:53 Dose: 650 mg Al Hydroxide/Mg Hydroxide (Magnesium Hydrox/Alum Hydrox 30 Ml Oral.Susp) 30 ml PO Q6H PRN PRN Reason: Heartburn/Nausea Clozapine (Clozapine 100 Mg Tablet) 300 mg PO BEDTIME [facility] Docusate Sodium (Docusate Sodium 100 Mg Capsule) 200 mg PO BID [facility] Last Admin: 07/11/22 08:29 Dose: 200 mg Guaifenesin (Guaifenesin 200 Mg/10 Ml 10 Ml Liquid) 10 ml PO Q4H PRN PRN Reason: productive cough Last Admin: 06/18/22 20:27 Dose: 10 ml [place] Carbonate ([place] Carbonate 300 Mg Capsule) 600 mg PO BEDTIME [facility] Last Admin: 07/10/22 21:08 Dose: 600 mg Lorazepam (Lorazepam 1 Mg Tablet) 1 mg PO TID [facility] Last Admin: 07/11/22 08:30 Dose: 1 mg Magnesium Hydroxide (Milk Of Magnesia 30 Ml Oral.Susp) 30 ml PO DAILY PRN PRN Reason: Constipation Last Admin: 06/29/22 10:49 Dose: 30 ml Metformin HCl (Metformin Hcl Er 500 Mg Tab.Er.24h) 500 mg PO DAILY [facility] Last Admin: 07/11/22 08:30 Dose: 500 mg Nicotine Polacrilex (Nicotine Polacrilex 2 Mg Gum) 4 mg BUCCAL Q2H PRN PRN Reason: Nicotine Cravings Olanzapine (Olanzapine 5 Mg Tablet) 5 mg PO TID PRN PRN Reason: agitation Last Admin: 06/25/22 20:14 Dose: 5 mg Polyethylene Glycol (Polyethylene Glycol 3350 17 Gm Powd.Pack) 17 gm PO DAILY [facility] Last Admin: 07/11/22 08:27 Dose: 17 gm Senna (Sennosides 8.6 Mg Tablet) 17.2 mg PO BEDTIME [facility] Last Admin: 07/10/22 21:08 Dose: 17.2 mg Sertraline HCl (Sertraline Hcl 100 Mg Tablet) 200 mg PO DAILY [facility] Last Admin: 07/11/22 08:29 Dose: 200 mg Tamsulosin HCl (Tamsulosin Hcl 0.4 Mg Capsule) 0.4 mg PO DAILY [facility] Last Admin: 07/11/22 08:29 Dose: 0.4 mg Trazodone HCl (Trazodone Hcl 50 Mg Tablet) 50 mg PO BEDTIME PRN PRN Reason: Insomnia Allergies Allergies Allergy/AdvReac Type Severity Reaction Status Date / Time No Known Allergies [NKA] Allergy Unknown NONE Verified 04/14/22 14:20 Assessment & Plan Assessment & Plan (1) Schizophrenia, catatonic: Status: Acute Code(s): 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 Tenorio is a 56 year-old male with hx of schizophrenia, stable for some years until he had declined in past 2-3 week. His CHD case maker contacted crisis as pt not verbal, appeared confused, not his baseline. Pt did start ibuprofen recently and in combination with lithium concern was potential lithium toxicity. CHD provider noted jerk like movements which are not baseline. He did missed few doses prior to coming to the hospital. In the ED, lithium not toxic levels. However, it does seem some degree of underlying kidney disease with decrease creatinine clearance. Pt with s/s of catatonia including mutism, staring at wall, did improve once given ativan 2mg. He is on ativan 2mg po TID at home for years but may have missed some doses and in the ED ativan was ordered as PRN. Pt on clozaril but was restarted at 25mg po qhs given reports of pt missing more than 2 doses. He is currently on 50mg po qhs and will increase daily by 25mg. PLAN 1. Admit to M3, cv 15 minutes checks. 2. continue current medications.? continue titration of clozaril 50mg po qhs today, 75mg po qhs tomorrow. 3. obtain collateral information 4. Aftercare planning 06/15 continue tx. 06/16 increase ativan 2mg po QID. continue clozaril titration 06/17:? ativan increased from 2 mg TID to 2 mg QID today due to ongoing catatonia. 06/18: CXR no evidence of pneumonia or CHF. Monitor respiratory status. Continue psychiatric management. 06/19: Continue current tx plan. 06/20 lower ativan to 1mg po tid- pt appears more sedated than catatonic. .hypersalivation noted- ?rebound anticholigergic with lower dose of clozaril. Titrate clozaril to 125mg po qhs. Home? dose was 250mg po qhs. 06/21 continue current tx. continue to monitor sedation, O2sat. 06/22: stable.? no change in mgmt. 06/23: increase HS clozapine from 150 mg to 175 mg.? slightly less PMR. 06/24: appears sedated midday.? no increase in clozapine for today.? continue current mgmt. 06/25 continue tx. 06/26 did give extra dose of ativan with some effect. 06/27 continue tx. may increase ativan as pt more alert but mute and staring. 06/28 continue tx. constipation on KUB. Added senna to colace, ducolax given, may consider enema. 06/29: continue current mgmt. remains without stool. 06/30/2022 Patient withdrawn psychomotor retarded discussed with patient's staff option of possible ECT marked constipation without obstruction noted did not respond to enema. Reviewed case with hospitalist service given no obstruction bili soft no evidence of obstruction on abdominal x-ray start lactulose. Hold olanzapine given psychomotor retardation catatonic type symptoms would strongly consider option of ECT monitor for any evidence of abdominal obstruction Start lactulose. . Discontinue Olanzapine 07/01/22 Continue lactulose case reviewed with hospitalist service consider ECT olanzapine discontinued encourage fluids maintain clozapine at present dose secondary to constipation 07/04/22 Pt on golytely case reviewed extensively with the hospitalist service Dr. Hilton check clozapine level lithium level electrolytes abdominal x-ray nonobstructive pattern 07/05/2022 Patient intermittently with unsteady gait lower Ativan to 1 t.i.d. check lithium level and electrolytes coordinate with outpatient nurse practitioner Og Bryson continue clozapine sertraline 07/06 continue tx. 07/07/2022 electrolytes ok ll .53 Encouraged exposure to light and ambulation continue Ativan sertraline Clozaril olanzapine p.r.n. 07/08/22 Pt seen in f/u inc sertraline 200 mg inc donald 1.5 tid encourage walking oob more 07/09/2022 Patient seen in the kitchen there is some increased range of affect 07/10/2022 Patient continues to show some improvement Better they will functioning sertraline has been increased to 200 mg clozapine increased 300 mg Monitor for over sedation constipation encourage had a bed continue lorazepam for catatonia 07/11 keep same treatment. Reason for continued inpatient stay Substantial Risk for: inability to function, rapid decompensation and med/psych decompensation Time Spent With Patient Time: Total time managing care of this patient today __20__ minutes.
[2022-07-11 20:00] VITALS: BP 108/54; PULSE 70; RESP 18; TEMP 36.6; O2SAT 98
[2022-07-11] MEDS: Lithium Carbonate 300 MG CAPSULE 600 MG PO (21:04)
[2022-07-11] MEDS: Sennosides 8.6 MG TABLET 17.2 MG PO (21:04)
[2022-07-11] MEDS: cloZAPine 100 MG TABLET 300 MG PO (21:04)
[2022-07-12 08:38] LABS: Glucose, Whole Blood 96 mg/dL (60-115)
[2022-07-12] MEDS: polyethylene glycoL 3350 17 GM POWD.PACK PO (08:45)
[2022-07-12] MEDS: metFORMIN HCl ER 500 MG TAB.ER.24H PO (08:46)
[2022-07-12] MEDS: Sertraline HCL 100 MG TABLET 200 MG PO (08:46)
[2022-07-12] MEDS: LORazepam 1 MG TABLET PO ×3 (08:50→21:53)
[2022-07-12] MEDS: Tamsulosin HCL 0.4 MG CAPSULE PO (08:50)
[2022-07-12] MEDS: Docusate Sodium 100 MG CAPSULE 200 MG PO ×2 (08:50→21:53)
[2022-07-12 08:55] VITALS: BP 120/66; PULSE 78; TEMP 36.6; O2SAT 100
--- NOTE | 2022-07-12 21:36 | P.PNPSI_ITS ---
Subjective Subjective Date of Service: 07/12/22 Reason For Visit: psychosis Subjective Notes: Conditional Voluntary Healthcare Proxy: No Guardianship: No Interim History: pt seen in f/u mood improving some aud diaz but able to put them in the background less depressed orozco affect Medication Compliance: Yes Review of Systems Acute medical concerns: No Mental Status Exam Mental Status Exam Patient Appearance: Appropriate Patient Orientation: Person and Situation Level of Consciousness: Awake and Appropriate Patient Behavior: Appropriate and Cooperative Mood Description: Calm and Constricted Affect Description: Blunted Patient Cognition Impaired: No Ability to Follow Directions: Good Speech Pattern: Impoverished Hallucinations: Auditory Thought Process: Slowed Thinking Thought Content: positive for Poverty of Content and positive for Thought Blocking Judgement: Fair Judgement and Insight: improved mood orozco affect Diagnostics Vital Signs (24Hr): Vital Signs - 24 hr 07/12/22 08:55 Temperature 97.8 F Pulse Rate 78 Blood Pressure 120/66 Pulse Oximetry 100 Oxygen Delivery Method Room Air BMI result Body Mass Index 32.1 Labs 07/02/22 07:37 07/05/22 18:52 Labs: Laboratory Results - last 48 hr 07/06/22 07/11/22 07/12/22 12:19 08:20 08:34 POC Glucose 96 96 Clozapine 388 Norclozapine 225 Imaging Radiology Impressions: ITS Impressions Chest X-Ray 06/18/22 12:00 IMPRESSION: * Lungs are hypoinflated and right diaphragm elevated. * No evidence of pneumonia or congestive heart failure. KUB X-Ray 06/26/22 19:04 IMPRESSION: 1. Nonobstructive bowel gas pattern with a large colonic stool burden predominantly in the ascending colon and splenic flexure. KUB X-Ray 06/30/22 13:56 IMPRESSION: Large stool burden throughout the colon. Abdomen X-Ray 07/04/22 17:40 IMPRESSION: Large volume of stool in colon. Nonobstructive bowel pattern. Medications Medications Current Medications Acetaminophen (Acetaminophen 325 Mg Tablet) 650 mg PO Q6H PRN PRN Reason: Headache/Pain Mild Scale (1-3) Last Admin: 07/02/22 20:53 Dose: 650 mg Al Hydroxide/Mg Hydroxide (Magnesium Hydrox/Alum Hydrox 30 Ml Oral.Susp) 30 ml PO Q6H PRN PRN Reason: Heartburn/Nausea Clozapine (Clozapine 100 Mg Tablet) 300 mg PO BEDTIME [facility] Last Admin: 07/11/22 21:04 Dose: 300 mg Docusate Sodium (Docusate Sodium 100 Mg Capsule) 200 mg PO BID [facility] Last Admin: 07/12/22 08:50 Dose: 200 mg Guaifenesin (Guaifenesin 200 Mg/10 Ml 10 Ml Liquid) 10 ml PO Q4H PRN PRN Reason: productive cough Last Admin: 06/18/22 20:27 Dose: 10 ml [place] Carbonate ([place] Carbonate 300 Mg Capsule) 600 mg PO BEDTIME [facility] Last Admin: 07/11/22 21:04 Dose: 600 mg Lorazepam (Lorazepam 1 Mg Tablet) 1 mg PO TID [facility] Last Admin: 07/12/22 15:36 Dose: 1 mg Magnesium Hydroxide (Milk Of Magnesia 30 Ml Oral.Susp) 30 ml PO DAILY PRN PRN Reason: Constipation Last Admin: 06/29/22 10:49 Dose: 30 ml Metformin HCl (Metformin Hcl Er 500 Mg Tab.Er.24h) 500 mg PO DAILY [facility] Last Admin: 07/12/22 08:46 Dose: 500 mg Nicotine Polacrilex (Nicotine Polacrilex 2 Mg Gum) 4 mg BUCCAL Q2H PRN PRN Reason: Nicotine Cravings Olanzapine (Olanzapine 5 Mg Tablet) 5 mg PO TID PRN PRN Reason: agitation Last Admin: 06/25/22 20:14 Dose: 5 mg Polyethylene Glycol (Polyethylene Glycol 3350 17 Gm Powd.Pack) 17 gm PO DAILY [facility] Last Admin: 07/12/22 08:45 Dose: 17 gm Senna (Sennosides 8.6 Mg Tablet) 17.2 mg PO BEDTIME [facility] Last Admin: 07/11/22 21:04 Dose: 17.2 mg Sertraline HCl (Sertraline Hcl 100 Mg Tablet) 200 mg PO DAILY [facility] Last Admin: 07/12/22 08:46 Dose: 200 mg Tamsulosin HCl (Tamsulosin Hcl 0.4 Mg Capsule) 0.4 mg PO DAILY [facility] Last Admin: 07/12/22 08:50 Dose: 0.4 mg Trazodone HCl (Trazodone Hcl 50 Mg Tablet) 50 mg PO BEDTIME PRN PRN Reason: Insomnia Allergies Allergies Allergy/AdvReac Type Severity Reaction Status Date / Time No Known Allergies [NKA] Allergy Unknown NONE Verified 04/14/22 14:20 Assessment & Plan Assessment & Plan (1) Schizophrenia, catatonic: Status: Acute Code(s): 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 Tenorio is a 56 year-old male with hx of schizophrenia, stable for some years until he had declined in past 2-3 week. His CHD shoe parts caser contacted crisis as pt not verbal, appeared confused, not his baseline. Pt did start ibuprofen recently and in combination with lithium concern was potential lithium toxicity. CHD provider noted jerk like movements which are not baseline. He did missed few doses prior to coming to the hospital. In the ED, lithium not toxic levels. However, it does seem some degree of underlying kidney disease with decrease creatinine clearance. Pt with s/s of catatonia including mutism, staring at wall, did improve once given ativan 2mg. He is on ativan 2mg po TID at home for years but may have missed some doses and in the ED ativan was ordered as PRN. Pt on clozaril but was restarted at 25mg po qhs given reports of pt missing more than 2 doses. He is currently on 50mg po qhs and will increase daily by 25mg. PLAN 1. Admit to M3, cv 15 minutes checks. 2. continue current medications.? continue titration of clozaril 50mg po qhs today, 75mg po qhs tomorrow. 3. obtain collateral information 4. Aftercare planning 06/15 continue tx. 06/16 increase ativan 2mg po QID. continue clozaril titration 06/17:? ativan increased from 2 mg TID to 2 mg QID today due to ongoing catatonia. 06/18: CXR no evidence of pneumonia or CHF. Monitor respiratory status. Continue psychiatric management. 06/19: Continue current tx plan. 06/20 lower ativan to 1mg po tid- pt appears more sedated than catatonic. .hypersalivation noted- ?rebound anticholigergic with lower dose of clozaril. Titrate clozaril to 125mg po qhs. Home? dose was 250mg po qhs. 06/21 continue current tx. continue to monitor sedation, O2sat. 06/22: stable.? no change in mgmt. 06/23: increase HS clozapine from 150 mg to 175 mg.? slightly less PMR. 06/24: appears sedated midday.? no increase in clozapine for today.? continue current mgmt. 06/25 continue tx. 06/26 did give extra dose of ativan with some effect. 06/27 continue tx. may increase ativan as pt more alert but mute and staring. 06/28 continue tx. constipation on KUB. Added senna to colace, ducolax given, may consider enema. 06/29: continue current mgmt. remains without stool. 06/30/2022 Patient withdrawn psychomotor retarded discussed with patient's staff option of possible ECT marked constipation without obstruction noted did not respond to enema. Reviewed case with hospitalist service given no obstruction bili soft no evidence of obstruction on abdominal x-ray start lactulose. Hold olanzapine given psychomotor retardation catatonic type symptoms would strongly consider option of ECT monitor for any evidence of abdominal obstruction Start lactulose. . Discontinue Olanzapine 07/01/22 Continue lactulose case reviewed with hospitalist service consider ECT olanzapine discontinued encourage fluids maintain clozapine at present dose secondary to constipation 07/04/22 Pt on golytely case reviewed extensively with the hospitalist service Dr. Hilton check clozapine level lithium level electrolytes abdominal x-ray nonobstructive pattern 07/05/2022 Patient intermittently with unsteady gait lower Ativan to 1 t.i.d. check lithium level and electrolytes coordinate with outpatient nurse practitioner Og Bryson continue clozapine sertraline 07/06 continue tx. 07/07/2022 electrolytes ok ll .53 Encouraged exposure to light and ambulation continue Ativan sertraline Clozaril olanzapine p.r.n. 07/08/22 Pt seen in f/u inc sertraline 200 mg inc donald 1.5 tid encourage walking oob more 07/09/2022 Patient seen in the kitchen there is some increased range of affect 07/10/2022 Patient continues to show some improvement Better they will functioning sertraline has been increased to 200 mg clozapine increased 300 mg Monitor for over sedation constipation encourage had a bed continue lorazepam for catatonia 07/11 keep same treatment. 07/12/2022 Continue clozapine sertraline patient is showing clear improvement Patient educated on: diagnosis and medication risk/benefits Informed Consent: understands Reason for continued inpatient stay Substantial Risk for: inability to function and rapid decompensation Time Spent With Patient Time: Total time managing care of this patient today ____ minutes.
[2022-07-12 21:45] VITALS: BP 127/60; PULSE 74; RESP 18; TEMP 36.6; O2SAT 98
[2022-07-12] MEDS: cloZAPine 100 MG TABLET 300 MG PO (21:53)
[2022-07-12] MEDS: Lithium Carbonate 300 MG CAPSULE 600 MG PO (21:53)
[2022-07-12] MEDS: Sennosides 8.6 MG TABLET 17.2 MG PO (21:53)
[2022-07-13 06:00] VITALS: BP 128/68; PULSE 77; RESP 18; TEMP 36.7; O2SAT 98
[2022-07-13] MEDS: Sertraline HCL 100 MG TABLET 200 MG PO (08:24)
[2022-07-13] MEDS: Tamsulosin HCL 0.4 MG CAPSULE PO (08:24)
[2022-07-13] MEDS: Docusate Sodium 100 MG CAPSULE 200 MG PO ×2 (08:24→21:29)
[2022-07-13] MEDS: LORazepam 1 MG TABLET PO ×3 (08:24→21:29)
[2022-07-13] MEDS: polyethylene glycoL 3350 17 GM POWD.PACK PO (08:25)
[2022-07-13] MEDS: metFORMIN HCl ER 500 MG TAB.ER.24H PO (08:25)
[2022-07-13 08:26] LABS: Glucose, Whole Blood 96 mg/dL (60-115)
[2022-07-13 10:41] LABS: Creatinine Clr Calc Pharmacy 63.6; Estimated Glomerular Filt Rate 50
--- NOTE | 2022-07-13 19:47 | HO.PSYCHPN ---
Subjective Subjective Date of Service: 07/13/22 Reason For Visit: psychosis Subjective Notes: Conditional Voluntary Interim History: Patient continues to show improvement in mood and range of affect Medication Compliance: Yes Mental Status Exam Mental Status Exam Patient Appearance: Appropriate Patient Orientation: Person and Situation Level of Consciousness: Awake and Appropriate Patient Behavior: Appropriate and Cooperative Mood Description: Calm and Constricted Affect Description: Blunted Patient Cognition Impaired: No Ability to Follow Directions: Good Speech Pattern: Impoverished Memory Description: Working Impaired Hallucinations: Auditory Thought Process: Slowed Thinking Thought Content: positive for Poverty of Content and positive for Thought Blocking Judgement: Fair Judgement and Insight: improved mood orozco affect Diagnostics Vital Signs (24Hr): Vital Signs - 24 hr 07/12/22 21:45 07/13/22 06:00 Temperature 97.8 F 98.0 F Pulse Rate 74 77 Respiratory Rate 18 18 Blood Pressure 127/60 128/68 Pulse Oximetry 98 98 Oxygen Delivery Method Room Air Room Air BMI result Body Mass Index 32.1 Labs 07/02/22 07:37 07/13/22 09:38 Labs: Laboratory Results - last 48 hr 07/12/22 07/13/22 07/13/22 08:34 08:20 09:38 Creatinine 1.45 H Estim Creat Clear Calc 63.6 Estimated GFR 50 POC Glucose 96 96 Imaging Radiology Impressions: ITS Impressions Chest X-Ray 06/18/22 12:00 IMPRESSION: * Lungs are hypoinflated and right diaphragm elevated. * No evidence of pneumonia or congestive heart failure. KUB X-Ray 06/26/22 19:04 IMPRESSION: 1. Nonobstructive bowel gas pattern with a large colonic stool burden predominantly in the ascending colon and splenic flexure. KUB X-Ray 06/30/22 13:56 IMPRESSION: Large stool burden throughout the colon. Abdomen X-Ray 07/04/22 17:40 IMPRESSION: Large volume of stool in colon. Nonobstructive bowel pattern. Medications Medications Current Medications Acetaminophen (Acetaminophen 325 Mg Tablet) 650 mg PO Q6H PRN PRN Reason: Headache/Pain Mild Scale (1-3) Last Admin: 07/02/22 20:53 Dose: 650 mg Al Hydroxide/Mg Hydroxide (Magnesium Hydrox/Alum Hydrox 30 Ml Oral.Susp) 30 ml PO Q6H PRN PRN Reason: Heartburn/Nausea Clozapine (Clozapine 100 Mg Tablet) 300 mg PO BEDTIME KRISTIN Last Admin: 07/12/22 21:53 Dose: 300 mg Docusate Sodium (Docusate Sodium 100 Mg Capsule) 200 mg PO BID [facility] Last Admin: 07/13/22 08:24 Dose: 200 mg Guaifenesin (Guaifenesin 200 Mg/10 Ml 10 Ml Liquid) 10 ml PO Q4H PRN PRN Reason: productive cough Last Admin: 06/18/22 20:27 Dose: 10 ml [place] Carbonate ([place] Carbonate 300 Mg Capsule) 600 mg PO BEDTIME [facility] Last Admin: 07/12/22 21:53 Dose: 600 mg Lorazepam (Lorazepam 1 Mg Tablet) 1 mg PO TID [facility] Last Admin: 07/13/22 14:33 Dose: 1 mg Magnesium Hydroxide (Milk Of Magnesia 30 Ml Oral.Susp) 30 ml PO DAILY PRN PRN Reason: Constipation Last Admin: 06/29/22 10:49 Dose: 30 ml Metformin HCl (Metformin Hcl Er 500 Mg Tab.Er.24h) 500 mg PO DAILY [facility] Last Admin: 07/13/22 08:25 Dose: 500 mg Nicotine Polacrilex (Nicotine Polacrilex 2 Mg Gum) 4 mg BUCCAL Q2H PRN PRN Reason: Nicotine Cravings Olanzapine (Olanzapine 5 Mg Tablet) 5 mg PO TID PRN PRN Reason: agitation Last Admin: 06/25/22 20:14 Dose: 5 mg Polyethylene Glycol (Polyethylene Glycol 3350 17 Gm Powd.Pack) 17 gm PO DAILY [facility] Last Admin: 07/13/22 08:25 Dose: 17 gm Senna (Sennosides 8.6 Mg Tablet) 17.2 mg PO BEDTIME [facility] Last Admin: 07/12/22 21:53 Dose: 17.2 mg Sertraline HCl (Sertraline Hcl 100 Mg Tablet) 200 mg PO DAILY [facility] Last Admin: 07/13/22 08:24 Dose: 200 mg Tamsulosin HCl (Tamsulosin Hcl 0.4 Mg Capsule) 0.4 mg PO DAILY [facility] Last Admin: 07/13/22 08:24 Dose: 0.4 mg Trazodone HCl (Trazodone Hcl 50 Mg Tablet) 50 mg PO BEDTIME PRN PRN Reason: Insomnia Allergies Allergies Allergy/AdvReac Type Severity Reaction Status Date / Time No Known Allergies [NKA] Allergy Unknown NONE Verified 04/14/22 14:20 Assessment & Plan Assessment & Plan (1) Schizophrenia, catatonic: Status: Acute Code(s): 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 Tenorio is a 56 year-old male with hx of schizophrenia, stable for some years until he had declined in past 2-3 week. His [facility] case operator contacted crisis as pt not verbal, appeared confused, not his baseline. Pt did start ibuprofen recently and in combination with lithium concern was potential lithium toxicity. CHD provider noted jerk like movements which are not baseline. He did missed few doses prior to coming to the hospital. In the ED, lithium not toxic levels. However, it does seem some degree of underlying kidney disease with decrease creatinine clearance. Pt with s/s of catatonia including mutism, staring at wall, did improve once given ativan 2mg. He is on ativan 2mg po TID at home for years but may have missed some doses and in the ED ativan was ordered as PRN. Pt on clozaril but was restarted at 25mg po qhs given reports of pt missing more than 2 doses. He is currently on 50mg po qhs and will increase daily by 25mg. PLAN 1. Admit to M3, cv 15 minutes checks. 2. continue current medications.? continue titration of clozaril 50mg po qhs today, 75mg po qhs tomorrow. 3. obtain collateral information 4. Aftercare planning 06/15 continue tx. 06/16 increase ativan 2mg po QID. continue clozaril titration 06/17:? ativan increased from 2 mg TID to 2 mg QID today due to ongoing catatonia. 06/18: CXR no evidence of pneumonia or CHF. Monitor respiratory status. Continue psychiatric management. 06/19: Continue current tx plan. 06/20 lower ativan to 1mg po tid- pt appears more sedated than catatonic. .hypersalivation noted- ?rebound anticholigergic with lower dose of clozaril. Titrate clozaril to 125mg po qhs. Home? dose was 250mg po qhs. 06/21 continue current tx. continue to monitor sedation, O2sat. 06/22: stable.? no change in mgmt. 06/23: increase HS clozapine from 150 mg to 175 mg.? slightly less PMR. 06/24: appears sedated midday.? no increase in clozapine for today.? continue current mgmt. 06/25 continue tx. 06/26 did give extra dose of ativan with some effect. 06/27 continue tx. may increase ativan as pt more alert but mute and staring. 06/28 continue tx. constipation on KUB. Added senna to colace, ducolax given, may consider enema. 06/29: continue current mgmt. remains without stool. 06/30/2022 Patient withdrawn psychomotor retarded discussed with patient's staff option of possible ECT marked constipation without obstruction noted did not respond to enema. Reviewed case with hospitalist service given no obstruction bili soft no evidence of obstruction on abdominal x-ray start lactulose. Hold olanzapine given psychomotor retardation catatonic type symptoms would strongly consider option of ECT monitor for any evidence of abdominal obstruction Start lactulose. . Discontinue Olanzapine 07/01/22 Continue lactulose case reviewed with hospitalist service consider ECT olanzapine discontinued encourage fluids maintain clozapine at present dose secondary to constipation 07/04/22 Pt on golytely case reviewed extensively with the hospitalist service Dr. Hilton check clozapine level lithium level electrolytes abdominal x-ray nonobstructive pattern 07/05/2022 Patient intermittently with unsteady gait lower Ativan to 1 t.i.d. check lithium level and electrolytes coordinate with outpatient nurse practitioner Og Bryson continue clozapine sertraline 07/06 continue tx. 07/07/2022 electrolytes ok ll .53 Encouraged exposure to light and ambulation continue Ativan sertraline Clozaril olanzapine p.r.n. 07/08/22 Pt seen in f/u inc sertraline 200 mg inc donald 1.5 tid encourage walking oob more 07/09/2022 Patient seen in the kitchen there is some increased range of affect 07/10/2022 Patient continues to show some improvement Better they will functioning sertraline has been increased to 200 mg clozapine increased 300 mg Monitor for over sedation constipation encourage had a bed continue lorazepam for catatonia 07/11 keep same treatment. 07/12/2022 Continue clozapine sertraline patient is showing clear improvement 07/13/2022 Continue plan of care Patient educated on: medical condition Informed Consent: understands Reason for continued inpatient stay Substantial Risk for: inability to function and rapid decompensation Time Spent With Patient Time: Total time managing care of this patient today ____ minutes.
[2022-07-13 20:30] VITALS: BP 111/56; PULSE 65; RESP 16; TEMP 36.4; O2SAT 97
[2022-07-13] MEDS: cloZAPine 100 MG TABLET 300 MG PO (21:29)
[2022-07-13] MEDS: Sennosides 8.6 MG TABLET 17.2 MG PO (21:29)
[2022-07-13] MEDS: Lithium Carbonate 300 MG CAPSULE 600 MG PO (21:29)
[2022-07-14 07:00] VITALS: BMI 32.3
[2022-07-14 08:20] VITALS: BP 125/67; PULSE 68; RESP 16; TEMP 36.7; O2SAT 97
[2022-07-14] MEDS: LORazepam 1 MG TABLET PO ×3 (08:23→20:55)
[2022-07-14] MEDS: metFORMIN HCl ER 500 MG TAB.ER.24H PO (08:23)
[2022-07-14] MEDS: Tamsulosin HCL 0.4 MG CAPSULE PO (08:23)
[2022-07-14] MEDS: Sertraline HCL 100 MG TABLET 200 MG PO (08:23)
[2022-07-14] MEDS: Docusate Sodium 100 MG CAPSULE 200 MG PO ×2 (08:23→20:56)
[2022-07-14] MEDS: polyethylene glycoL 3350 17 GM POWD.PACK PO (08:24)
[2022-07-14 08:30] LABS: Glucose, Whole Blood 97 mg/dL (60-115)
--- NOTE | 2022-07-14 12:47 | P.PNPSI_ITS ---
Subjective Subjective Date of Service: 07/14/22 Reason For Visit: psychosis Subjective Notes: Conditional Voluntary Interim History: Patient with gradually Pope range of motion states feels mildly depressed but more engaged out of bed enjoying sunshine still slowed mentation and slowed speech Swallowing re-evaluation reviewed Medication Compliance: Yes Review of Systems Continues to need supervision during meals Mental Status Exam Mental Status Exam Patient Appearance: Appropriate Patient Orientation: Person and Situation Level of Consciousness: Awake and Appropriate Patient Behavior: Appropriate and Cooperative Mood Description: Calm, Constricted and Flat Affect Description: Blunted Patient Cognition Impaired: No Ability to Follow Directions: Good Speech Pattern: Impoverished Memory Description: Working Impaired Hallucinations: Auditory Thought Process: Slowed Thinking Thought Content: positive for Poverty of Content and positive for Thought Blocking Judgement: Fair Judgement and Insight: improved mood pope affect Diagnostics Vital Signs (24Hr): Vital Signs - 24 hr 07/13/22 20:30 07/14/22 08:20 Temperature 97.6 F 98.0 F Pulse Rate 65 68 Respiratory Rate 16 16 Blood Pressure 111/56 L 125/67 Pulse Oximetry 97 97 Oxygen Delivery Method Room Air Room Air BMI result Body Mass Index 32.3 Labs 07/02/22 07:37 07/13/22 09:38 Labs: Laboratory Results - last 48 hr 07/13/22 07/13/22 07/14/22 08:20 09:38 08:22 Creatinine 1.45 H Estim Creat Clear Calc 63.6 Estimated GFR 50 POC Glucose 96 97 Imaging Radiology Impressions: ITS Impressions Chest X-Ray 06/18/22 12:00 IMPRESSION: * Lungs are hypoinflated and right diaphragm elevated. * No evidence of pneumonia or congestive heart failure. KUB X-Ray 06/26/22 19:04 IMPRESSION: 1. Nonobstructive bowel gas pattern with a large colonic stool burden predominantly in the ascending colon and splenic flexure. KUB X-Ray 06/30/22 13:56 IMPRESSION: Large stool burden throughout the colon. Abdomen X-Ray 07/04/22 17:40 IMPRESSION: Large volume of stool in colon. Nonobstructive bowel pattern. Medications Medications Current Medications Acetaminophen (Acetaminophen 325 Mg Tablet) 650 mg PO Q6H PRN PRN Reason: Headache/Pain Mild Scale (1-3) Last Admin: 07/02/22 20:53 Dose: 650 mg Al Hydroxide/Mg Hydroxide (Magnesium Hydrox/Alum Hydrox 30 Ml Oral.Susp) 30 ml PO Q6H PRN PRN Reason: Heartburn/Nausea Clozapine (Clozapine 100 Mg Tablet) 300 mg PO BEDTIME [facility] Last Admin: 07/13/22 21:29 Dose: 300 mg Docusate Sodium (Docusate Sodium 100 Mg Capsule) 200 mg PO BID [facility] Last Admin: 07/14/22 08:23 Dose: 200 mg Guaifenesin (Guaifenesin 200 Mg/10 Ml 10 Ml Liquid) 10 ml PO Q4H PRN PRN Reason: productive cough Last Admin: 06/18/22 20:27 Dose: 10 ml [place] Carbonate ([place] Carbonate 300 Mg Capsule) 600 mg PO BEDTIME [facility] Last Admin: 07/13/22 21:29 Dose: 600 mg Lorazepam (Lorazepam 1 Mg Tablet) 1 mg PO TID [facility] Last Admin: 07/14/22 08:23 Dose: 1 mg Magnesium Hydroxide (Milk Of Magnesia 30 Ml Oral.Susp) 30 ml PO DAILY PRN PRN Reason: Constipation Last Admin: 06/29/22 10:49 Dose: 30 ml Metformin HCl (Metformin Hcl Er 500 Mg Tab.Er.24h) 500 mg PO DAILY [facility] Last Admin: 07/14/22 08:23 Dose: 500 mg Nicotine Polacrilex (Nicotine Polacrilex 2 Mg Gum) 4 mg BUCCAL Q2H PRN PRN Reason: Nicotine Cravings Olanzapine (Olanzapine 5 Mg Tablet) 5 mg PO TID PRN PRN Reason: agitation Last Admin: 06/25/22 20:14 Dose: 5 mg Polyethylene Glycol (Polyethylene Glycol 3350 17 Gm Powd.Pack) 17 gm PO DAILY [facility] Last Admin: 07/14/22 08:24 Dose: 17 gm Senna (Sennosides 8.6 Mg Tablet) 17.2 mg PO BEDTIME [facility] Last Admin: 07/13/22 21:29 Dose: 17.2 mg Sertraline HCl (Sertraline Hcl 100 Mg Tablet) 200 mg PO DAILY [facility] Last Admin: 07/14/22 08:23 Dose: 200 mg Tamsulosin HCl (Tamsulosin Hcl 0.4 Mg Capsule) 0.4 mg PO DAILY [facility] Last Admin: 07/14/22 08:23 Dose: 0.4 mg Trazodone HCl (Trazodone Hcl 50 Mg Tablet) 50 mg PO BEDTIME PRN PRN Reason: Insomnia Allergies Allergies Allergy/AdvReac Type Severity Reaction Status Date / Time No Known Allergies [NKA] Allergy Unknown NONE Verified 04/14/22 14:20 Assessment & Plan Assessment & Plan (1) Schizophrenia, catatonic: Status: Acute Code(s): 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 Tenorio is a 56 year-old male with hx of schizophrenia, stable for some years until he had declined in past 2-3 week. His [facility] hospice case manager contacted crisis as pt not verbal, appeared confused, not his baseline. Pt did start ibuprofen recently and in combination with lithium concern was potential lithium toxicity. CHD provider noted jerk like movements which are not baseline. He did missed few doses prior to coming to the hospital. In the ED, lithium not toxic levels. However, it does seem some degree of underlying kidney disease with decrease creatinine clearance. Pt with s/s of catatonia including mutism, staring at wall, did improve once given ativan 2mg. He is on ativan 2mg po TID at home for years but may have missed some doses and in the ED ativan was ordered as PRN. Pt on clozaril but was restarted at 25mg po qhs given reports of pt missing more than 2 doses. He is currently on 50mg po qhs and will increase daily by 25mg. PLAN 1. Admit to M3, cv 15 minutes checks. 2. continue current medications.? continue titration of clozaril 50mg po qhs today, 75mg po qhs tomorrow. 3. obtain collateral information 4. Aftercare planning 06/15 continue tx. 06/16 increase ativan 2mg po QID. continue clozaril titration 06/17:? ativan increased from 2 mg TID to 2 mg QID today due to ongoing ca tatonia. 06/18: CXR no evidence of pneumonia or CHF. Monitor respiratory status. Continue psychiatric management. 06/19: Continue current tx plan. 06/20 lower ativan to 1mg po tid- pt appears more sedated than catatonic. .hypersalivation noted- ?rebound anticholigergic with lower dose of clozaril. Titrate clozaril to 125mg po qhs. Home? dose was 250mg po qhs. 06/21 continue current tx. continue to monitor sedation, O2sat. 06/22: stable.? no change in mgmt. 06/23: increase HS clozapine from 150 mg to 175 mg.? slightly less PMR. 06/24: appears sedated midday.? no increase in clozapine for today.? continue current mgmt. 06/25 continue tx. 06/26 did give extra dose of ativan with some effect. 06/27 continue tx. may increase ativan as pt more alert but mute and staring. 06/28 continue tx. constipation on KUB. Added senna to colace, ducolax given, may consider enema. 06/29: continue current mgmt. remains without stool. 06/30/2022 Patient withdrawn psychomotor retarded discussed with patient's staff option of possible ECT marked constipation without obstruction noted did not respond to enema. Reviewed case with hospitalist service given no obstruction bili soft no evidence of obstruction on abdominal x-ray start lactulose. Hold olanzapine given psychomotor retardation catatonic type symptoms would strongly consider option of ECT monitor for any evidence of abdominal obstruction Start lactulose. . Discontinue Olanzapine 07/01/22 Continue lactulose case reviewed with hospitalist service consider ECT olanzapine discontinued encourage fluids maintain clozapine at present dose secondary to constipation 07/04/22 Pt on golytely case reviewed extensively with the hospitalist service Dr. Hilton check clozapine level lithium level electrolytes abdominal x-ray nonobstructive pattern 07/05/2022 Patient intermittently with unsteady gait lower Ativan to 1 t.i.d. check lithium level and electrolytes coordinate with outpatient nurse practitioner Og Bryson continue clozapine sertraline 07/06 continue tx. 07/07/2022 electrolytes ok ll .53 Encouraged exposure to light and ambulation continue Ativan sertraline Clozaril olanzapine p.r.n. 07/08/22 Pt seen in f/u inc sertraline 200 mg inc donald 1.5 tid encourage walking oob more 07/09/2022 Patient seen in the kitchen there is some increased range of affect 07/10/2022 Patient continues to show some improvement Better they will functioning sertraline has been increased to 200 mg clozapine increased 300 mg Monitor for over sedation constipation encourage had a bed continue lorazepam for catatonia 07/11 keep same treatment. 07/12/2022 Continue clozapine sertraline patient is showing clear improvement 07/13/2022 Continue plan of care 07/14/2022 Continue plan of care. Patient still requires one-to-one during meals still at risk Reason for continued inpatient stay Substantial Risk for: inability to function and rapid decompensation Time Spent With Patient Time: Total time managing care of this patient today ____ minutes.
--- NOTE | 2022-07-14 13:59 | MHC.SL.SWA ---
Speech Pathologist Impression: Risk of Aspiration Due to: Reduced Cognition Dysphasia Diet Status: Upgrade to Chopped/Advanced (NDD3) with Thin Liquids Liquid Consistency and Strategies for Safe Swallow: Liquid Intake Recommendation: Thin Liquid Intake Strategies: Small Sips Solid Food Consistency: Dietary Recommendations: Chopped/Advanced (NDD3) Additional Modifications to Solid Foods: Will request patient be cleared for bread so he can access sandwiches and burgers with bun. Patient continues to require supervision during meals, as he is at risk for packing mouth, creating choking risk. e.g. Patient has been previously viewed to benefit from occasional cuing to stop and finish eating what is in his mouth before adding more food. Oral Medication Intake: Whole with Liquid Please contact the pharmacy regarding appropriate crushable or liquid drug formulations that are available whenever modified delivery is recommended. Compensatory Strategies and Precautions to be Taken for Safe Swallow: Sitting Upright (90 deg) Liquids from Cup Liquids from Straw Small Bites and Sips Alternate Liquids/Solids Rate of Ingestion Change Supervision While Eating and Drinking for Safe Swallow: Total Supervision (1:1) Foods to Avoid: Large pieces of food, difficult to chew solids. Swallowing Recommended Treatments: Compens. Strategy Educat. Recommendation for Speech: Inpatient Speech Therapy Comment: Patient continues to present with a slowed rate of mastication and oral management of food consistent with a mild to moderate oral phase dysphagia. Patient is at risk for choking if too much food is added to mouth before swallowing. However, reason for this evaluation was patient and staff c/o limited choices on ground mechanical diet, which was previously determined to be safest diet, given choking risk. On assessment today, patient managed more advanced textures, but again presented with slowed rate of mastication. Recommend advance diet to CHOPPED/ADVANCED (NDD3), continue on THIN LIQUIDS, with pills whole with liquid. Patient will require supervision during his meals with cuing to avoid packing mouth with too much food, or food and liquid. TEACHING ASSISTANT will request RD clear patient for breads so that he may access sandwiches, etc. , RN, RD advised of recommendation by secure text, TEACHING ASSISTANT adjusted diet recommendations in EXPANSE. Frequency/Duration: Recommend 1-2 F/u for toleration of diet. Date Range for Service Req: Timeline to reassess: Buckle Stapler Clinican/Clinical Fellow: No Supervisory Statement: I have reviewed and agree with the student/clinical fellow's documentation: N/A Speech Language Pathologist: Vicki Jane M.A., [facility]-TEACHING ASSISTANT
[2022-07-14 20:10] VITALS: BP 126/71; PULSE 66; RESP 18; TEMP 36.4; O2SAT 97
[2022-07-14] MEDS: Lithium Carbonate 300 MG CAPSULE 600 MG PO (20:55)
[2022-07-14] MEDS: Sennosides 8.6 MG TABLET 17.2 MG PO (20:55)
[2022-07-14] MEDS: cloZAPine 100 MG TABLET 300 MG PO (20:56)
[2022-07-15 06:00] VITALS: BP 136/70; PULSE 78; RESP 16; TEMP 36.7; O2SAT 98
[2022-07-15 08:15] LABS: Glucose, Whole Blood 101 mg/dL (60-115)
[2022-07-15] MEDS: polyethylene glycoL 3350 17 GM POWD.PACK PO (08:43)
[2022-07-15] MEDS: Sertraline HCL 100 MG TABLET 200 MG PO (08:44)
[2022-07-15] MEDS: metFORMIN HCl ER 500 MG TAB.ER.24H PO (08:44)
[2022-07-15] MEDS: Tamsulosin HCL 0.4 MG CAPSULE PO (08:44)
[2022-07-15] MEDS: Docusate Sodium 100 MG CAPSULE 200 MG PO ×2 (08:44→20:56)
[2022-07-15] MEDS: LORazepam 1 MG TABLET PO ×3 (08:44→20:56)
--- NOTE | 2022-07-15 14:55 | MHC.SLORD ---
Speech Language Pathology Order Status: Per discussion with vp digital marketing social media and crm, pt is tolerating chopped diet, is supervised and cued by staff during meals. He has been doing well with diet textures with no reported choking or difficulties. VETERINARY SURGEON will continue to follow.
--- NOTE | 2022-07-15 17:35 | HO.PSYCHPN ---
Subjective Subjective Date of Service: 07/15/22 Reason For Visit: psychosis Subjective Notes: Conditional Voluntary Guardianship: No Interim History: Patient gradually improving less internally preoccupied still psycho motor retarded issues related to chewing and swallowing reviewed with speech Medication Compliance: Yes Attending Groups: No Mental Status Exam Mental Status Exam Patient Appearance: Appropriate Patient Orientation: Person and Situation Level of Consciousness: Awake and Appropriate Patient Behavior: Appropriate and Cooperative Mood Description: Calm, Constricted and Flat Affect Description: Blunted Patient Cognition Impaired: No Ability to Follow Directions: Good Speech Pattern: Impoverished Memory Description: Working Impaired Hallucinations: Auditory Thought Process: Slowed Thinking Thought Content: positive for Poverty of Content and positive for Thought Blocking Judgement: Fair Judgement and Insight: improved mood orozco affect Diagnostics Vital Signs (24Hr): Vital Signs - 24 hr 07/14/22 20:10 07/15/22 06:00 Temperature 97.6 F 98.0 F Pulse Rate 66 78 Respiratory Rate 18 16 Blood Pressure 126/71 136/70 Pulse Oximetry 97 98 Oxygen Delivery Method Room Air Room Air BMI result Body Mass Index 32.3 Labs 07/02/22 07:37 07/13/22 09:38 Labs: Laboratory Results - last 48 hr 07/14/22 07/15/22 08:22 08:11 POC Glucose 97 101 Imaging Radiology Impressions: ITS Impressions Chest X-Ray 06/18/22 12:00 IMPRESSION: * Lungs are hypoinflated and right diaphragm elevated. * No evidence of pneumonia or congestive heart failure. KUB X-Ray 06/26/22 19:04 IMPRESSION: 1. Nonobstructive bowel gas pattern with a large colonic stool burden predominantly in the ascending colon and splenic flexure. KUB X-Ray 06/30/22 13:56 IMPRESSION: Large stool burden throughout the colon. Abdomen X-Ray 07/04/22 17:40 IMPRESSION: Large volume of stool in colon. Nonobstructive bowel pattern. Medications Medications Current Medications Acetaminophen (Acetaminophen 325 Mg Tablet) 650 mg PO Q6H PRN PRN Reason: Headache/Pain Mild Scale (1-3) Last Admin: 07/02/22 20:53 Dose: 650 mg Al Hydroxide/Mg Hydroxide (Magnesium Hydrox/Alum Hydrox 30 Ml Oral.Susp) 30 ml PO Q6H PRN PRN Reason: Heartburn/Nausea Clozapine (Clozapine 100 Mg Tablet) 300 mg PO BEDTIME KRISTIN Last Admin: 07/14/22 20:56 Dose: 300 mg Docusate Sodium (Docusate Sodium 100 Mg Capsule) 200 mg PO BID [facility] Last Admin: 07/15/22 08:44 Dose: 200 mg Guaifenesin (Guaifenesin 200 Mg/10 Ml 10 Ml Liquid) 10 ml PO Q4H PRN PRN Reason: productive cough Last Admin: 06/18/22 20:27 Dose: 10 ml [place] Carbonate ([place] Carbonate 300 Mg Capsule) 600 mg PO BEDTIME [facility] Last Admin: 07/14/22 20:55 Dose: 600 mg Lorazepam (Lorazepam 1 Mg Tablet) 1 mg PO TID [facility] Last Admin: 07/15/22 14:32 Dose: 1 mg Magnesium Hydroxide (Milk Of Magnesia 30 Ml Oral.Susp) 30 ml PO DAILY PRN PRN Reason: Constipation Last Admin: 06/29/22 10:49 Dose: 30 ml Metformin HCl (Metformin Hcl Er 500 Mg Tab.Er.24h) 500 mg PO DAILY [facility] Last Admin: 07/15/22 08:44 Dose: 500 mg Nicotine Polacrilex (Nicotine Polacrilex 2 Mg Gum) 4 mg BUCCAL Q2H PRN PRN Reason: Nicotine Cravings Olanzapine (Olanzapine 5 Mg Tablet) 5 mg PO TID PRN PRN Reason: agitation Last Admin: 06/25/22 20:14 Dose: 5 mg Polyethylene Glycol (Polyethylene Glycol 3350 17 Gm Powd.Pack) 17 gm PO DAILY [facility] Last Admin: 07/15/22 08:43 Dose: 17 gm Senna (Sennosides 8.6 Mg Tablet) 17.2 mg PO BEDTIME [facility] Last Admin: 07/14/22 20:55 Dose: 17.2 mg Sertraline HCl (Sertraline Hcl 100 Mg Tablet) 200 mg PO DAILY [facility] Last Admin: 07/15/22 08:44 Dose: 200 mg Tamsulosin HCl (Tamsulosin Hcl 0.4 Mg Capsule) 0.4 mg PO DAILY [facility] Last Admin: 07/15/22 08:44 Dose: 0.4 mg Trazodone HCl (Trazodone Hcl 50 Mg Tablet) 50 mg PO BEDTIME PRN PRN Reason: Insomnia Allergies Allergies Allergy/AdvReac Type Severity Reaction Status Date / Time No Known Allergies [NKA] Allergy Unknown NONE Verified 04/14/22 14:20 Assessment & Plan Assessment & Plan (1) Schizophrenia, catatonic: Status: Acute Code(s): 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 Tenorio is a 56 year-old male with hx of schizophrenia, stable for some years until he had declined in past 2-3 week. His [facility] case maker contacted crisis as pt not verbal, appeared confused, not his baseline. Pt did start ibuprofen recently and in combination with lithium concern was potential lithium toxicity. [facility] provider noted jerk like movements which are not baseline. He did missed few doses prior to coming to the hospital. In the ED, lithium not toxic levels. However, it does seem some degree of underlying kidney disease with decrease creatinine clearance. Pt with s/s of catatonia including mutism, staring at wall, did improve once given ativan 2mg. He is on ativan 2mg po TID at home for years but may have missed some doses and in the ED ativan was ordered as PRN. Pt on clozaril but was restarted at 25mg po qhs given reports of pt missing more than 2 doses. He is currently on 50mg po qhs and will increase daily by 25mg. PLAN 1. Admit to M3, cv 15 minutes checks. 2. continue current medications.? continue titration of clozaril 50mg po qhs today, 75mg po qhs tomorrow. 3. obtain collateral information 4. Aftercare planning 06/15 continue tx. 06/16 increase ativan 2mg po QID. continue clozaril titration 06/17:? ativan increased from 2 mg TID to 2 mg QID today due to ongoing catatonia. 06/18: CXR no evidence of pneumonia or CHF. Monitor respiratory status. Continue psychiatric management. 06/19: Continue current tx plan. 06/20 lower ativan to 1mg po tid- pt appears more sedated than catatonic. .hypersalivation noted- ?rebound anticholigergic with lower dose of clozaril. Titrate clozaril to 125mg po qhs. Home? dose was 250mg po qhs. 06/21 continue current tx. continue to monitor sedation, O2sat. 06/22: stable.? no change in mgmt. 06/23: increase HS clozapine from 150 mg to 175 mg.? slightly less PMR. 06/24: appears sedated midday.? no increase in clozapine for today.? continue current mgmt. 06/25 continue tx. 06/26 did give extra dose of ativan with some effect. 06/27 continue tx. may increase ativan as pt more alert but mute and staring. 06/28 continue tx. constipation on KUB. Added senna to colace, ducolax given, may consider enema. 06/29: continue current mgmt. remains without stool. 06/30/2022 Patient withdrawn psychomotor retarded discussed with patient's staff option of possible ECT marked constipation without obstruction noted did not respond to enema. Reviewed case with hospitalist service given no obstruction bili soft no evidence of obstruction on abdominal x-ray start lactulose. Hold olanzapine given psychomotor retardation catatonic type symptoms would strongly consider option of ECT monitor for any evidence of abdominal obstruction Start lactulose. . Discontinue Olanzapine 07/01/22 Continue lactulose case reviewed with hospitalist service consider ECT olanzapine discontinued encourage fluids maintain clozapine at present dose secondary to constipation 07/04/22 Pt on golytely case reviewed extensively with the hospitalist service Dr. Hilton check clozapine level lithium level electrolytes abdominal x-ray nonobstructive pattern 07/05/2022 Patient intermittently with unsteady gait lower Ativan to 1 t.i.d. check lithium level and electrolytes coordinate with outpatient nurse practitioner Og Bryson continue clozapine sertraline 07/06 continue tx. 07/07/2022 electrolytes ok ll .53 Encouraged exposure to light and ambulation continue Ativan sertraline Clozaril olanzapine p.r.n. 07/08/22 Pt seen in f/u inc sertraline 200 mg inc donald 1.5 tid encourage walking oob more 07/09/2022 Patient seen in the kitchen there is some increased range of affect 07/10/2022 Patient continues to show some improvement Better they will functioning sertraline has been increased to 200 mg clozapine increased 300 mg Monitor for over sedation constipation encourage had a bed continue lorazepam for catatonia 07/11 keep same treatment. 07/12/2022 Continue clozapine sertraline patient is showing clear improvement 07/13/2022 Continue plan of care 07/14/2022 Continue plan of care. Patient still requires one-to-one during meals still at risk 07/15/2022 Continue clozapine sertraline lorazepam Continue have speech work with patient on swallowing and more awareness portions and showing Patient educated on: medication risk/benefits and medical condition Informed Consent: further education needed Reason for continued inpatient stay Substantial Risk for: inability to function and rapid decompensation Time Spent With Patient Time: Total time managing care of this patient today ____ minutes.
[2022-07-15 20:50] VITALS: BP 127/64; PULSE 76; RESP 18; TEMP 36.4; O2SAT 98
[2022-07-15] MEDS: cloZAPine 100 MG TABLET 300 MG PO (20:55)
[2022-07-15] MEDS: Lithium Carbonate 300 MG CAPSULE 600 MG PO (20:55)
[2022-07-15] MEDS: Sennosides 8.6 MG TABLET 17.2 MG PO (20:56)
[2022-07-16 07:09] LABS: Neut%MD 65.3 %; Neutrophils Absolute Auto 4.2 x10*3/uL (2.0-8.3); WBCANC 6.5 X10*3/uL
[2022-07-16 08:36] LABS: Glucose, Whole Blood 94 mg/dL (60-115)
[2022-07-16] MEDS: polyethylene glycoL 3350 17 GM POWD.PACK PO (08:38)
[2022-07-16] MEDS: Sertraline HCL 100 MG TABLET 200 MG PO (08:39)
[2022-07-16] MEDS: Tamsulosin HCL 0.4 MG CAPSULE PO (08:39)
[2022-07-16] MEDS: LORazepam 1 MG TABLET PO ×3 (08:40→20:56)
[2022-07-16] MEDS: Docusate Sodium 100 MG CAPSULE 200 MG PO ×2 (08:40→20:56)
[2022-07-16] MEDS: metFORMIN HCl ER 500 MG TAB.ER.24H PO (08:40)
[2022-07-16 08:44] VITALS: BP 140/69; PULSE 80; TEMP 36.2; O2SAT 98
--- NOTE | 2022-07-16 12:28 | HO.PSYCHPN ---
Subjective Subjective Date of Service: 07/16/22 Reason For Visit: psychosis Subjective Notes: Conditional Voluntary Healthcare Proxy: No Guardianship: No Medical Problems Affecting Mental Status: No Interim History: Patient was seen and discussed in rounds today. Records and plans were reviewed. He has been doing a lot better, speaking full sentences. He is little anxious about his discharge. No hallucinations reported. He is medication compliant. Attending groups. No complaints or side effects. No changes were made today Medication Compliance: Yes Side effects from medications: No Attending Groups: Yes Review of Systems Review of Systems Yes all other systems are reviewed and are negative Mental Status Exam Mental Status Exam Narrative: In today's visit he is alert, oriented and pleasant. Soft-spoken speech. Moderate eye contact. Affect is constricted. No acute signs of psychosis. Denies any auditory or visual hallucinations. No SI. Cognitively he has slow thought processes. Judgment is intact. Diagnostics Vital Signs (24Hr): Vital Signs - 24 hr 07/15/22 20:50 07/16/22 08:44 Temperature 97.6 F 97.2 F Pulse Rate 76 80 Respiratory Rate 18 Blood Pressure 127/64 140/69 H Pulse Oximetry 98 98 Oxygen Delivery Method Room Air Room Air BMI result Body Mass Index 32.3 Labs 07/02/22 07:37 07/13/22 09:38 Labs: Laboratory Results - last 48 hr 07/15/22 07/16/22 07/16/22 08:11 06:31 08:31 Absolute Neuts (auto) 4.2 POC Glucose 101 94 Imaging Radiology Impressions: ITS Impressions Chest X-Ray 06/18/22 12:00 IMPRESSION: * Lungs are hypoinflated and right diaphragm elevated. * No evidence of pneumonia or congestive heart failure. KUB X-Ray 06/26/22 19:04 IMPRESSION: 1. Nonobstructive bowel gas pattern with a large colonic stool burden predominantly in the ascending colon and splenic flexure. KUB X-Ray 06/30/22 13:56 IMPRESSION: Large stool burden throughout the colon. Abdomen X-Ray 07/04/22 17:40 IMPRESSION: Large volume of stool in colon. Nonobstructive bowel pattern. Medications Medications Current Medications Acetaminophen (Acetaminophen 325 Mg Tablet) 650 mg PO Q6H PRN PRN Reason: Headache/Pain Mild Scale (1-3) Last Admin: 07/02/22 20:53 Dose: 650 mg Al Hydroxide/Mg Hydroxide (Magnesium Hydrox/Alum Hydrox 30 Ml Oral.Susp) 30 ml PO Q6H PRN PRN Reason: Heartburn/Nausea Clozapine (Clozapine 100 Mg Tablet) 300 mg PO BEDTIME [facility] Last Admin: 07/15/22 20:55 Dose: 300 mg Docusate Sodium (Docusate Sodium 100 Mg Capsule) 200 mg PO BID [facility] Last Admin: 07/16/22 08:40 Dose: 200 mg Guaifenesin (Guaifenesin 200 Mg/10 Ml 10 Ml Liquid) 10 ml PO Q4H PRN PRN Reason: productive cough Last Admin: 06/18/22 20:27 Dose: 10 ml [place] Carbonate ([place] Carbonate 300 Mg Capsule) 600 mg PO BEDTIME [facility] Last Admin: 07/15/22 20:55 Dose: 600 mg Lorazepam (Lorazepam 1 Mg Tablet) 1 mg PO TID [facility] Last Admin: 07/16/22 08:40 Dose: 1 mg Magnesium Hydroxide (Milk Of Magnesia 30 Ml Oral.Susp) 30 ml PO DAILY PRN PRN Reason: Constipation Last Admin: 06/29/22 10:49 Dose: 30 ml Metformin HCl (Metformin Hcl Er 500 Mg Tab.Er.24h) 500 mg PO DAILY [facility] Last Admin: 07/16/22 08:40 Dose: 500 mg Nicotine Polacrilex (Nicotine Polacrilex 2 Mg Gum) 4 mg BUCCAL Q2H PRN PRN Reason: Nicotine Cravings Olanzapine (Olanzapine 5 Mg Tablet) 5 mg PO TID PRN PRN Reason: agitation Last Admin: 06/25/22 20:14 Dose: 5 mg Polyethylene Glycol (Polyethylene Glycol 3350 17 Gm Powd.Pack) 17 gm PO DAILY [facility] Last Admin: 07/16/22 08:38 Dose: 17 gm Senna (Sennosides 8.6 Mg Tablet) 17.2 mg PO BEDTIME [facility] Last Admin: 07/15/22 20:56 Dose: 17.2 mg Sertraline HCl (Sertraline Hcl 100 Mg Tablet) 200 mg PO DAILY [facility] Last Admin: 07/16/22 08:39 Dose: 200 mg Tamsulosin HCl (Tamsulosin Hcl 0.4 Mg Capsule) 0.4 mg PO DAILY [facility] Last Admin: 07/16/22 08:39 Dose: 0.4 mg Trazodone HCl (Trazodone Hcl 50 Mg Tablet) 50 mg PO BEDTIME PRN PRN Reason: Insomnia Allergies Allergies Allergy/AdvReac Type Severity Reaction Status Date / Time No Known Allergies [NKA] Allergy Unknown NONE Verified 04/14/22 14:20 Assessment & Plan Assessment & Plan (1) Schizophrenia, catatonic: Status: Acute Code(s): 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 Tenorio is a 56 year-old male with hx of schizophrenia, stable for some years until he had declined in past 2-3 week. His [facility] shoe caser contacted crisis as pt not verbal, appeared confused, not his baseline. Pt did start ibuprofen recently and in combination with lithium concern was potential lithium toxicity. [facility] provider noted jerk like movements which are not baseline. He did missed few doses prior to coming to the hospital. In the ED, lithium not toxic levels. However, it does seem some degree of underlying kidney disease with decrease creatinine clearance. Pt with s/s of catatonia including mutism, staring at wall, did improve once given ativan 2mg. He is on ativan 2mg po TID at home for years but may have missed some doses and in the ED ativan was ordered as PRN. Pt on clozaril but was restarted at 25mg po qhs given reports of pt missing more than 2 doses. He is currently on 50mg po qhs and will increase daily by 25mg. PLAN 1. Admit to M3, cv 15 minutes checks. 2. continue current medications.? continue titration of clozaril 50mg po qhs today, 75mg po qhs tomorrow. 3. obtain collateral information 4. Aftercare planning 06/15 continue tx. 06/16 increase ativan 2mg po QID. continue clozaril titration 06/17:? ativan increased from 2 mg TID to 2 mg QID today due to ongoing catatonia. 06/18: CXR no evidence of pneumonia or CHF. Monitor respiratory status. Continue psychiatric management. 06/19: Continue current tx plan. 06/20 lower ativan to 1mg po tid- pt appears more sedated than catatonic. .hypersalivation noted- ?rebound anticholigergic with lower dose of clozaril. Titrate clozaril to 125mg po qhs. Home? dose was 250mg po qhs. 06/21 continue current tx. continue to monitor sedation, O2sat. 06/22: stable.? no change in mgmt. 06/23: increase HS clozapine from 150 mg to 175 mg.? slightly less PMR. 06/24: appears sedated midday.? no increase in clozapine for today.? continue current mgmt. 06/25 continue tx. 06/26 did give extra dose of ativan with some effect. 06/27 continue tx. may increase ativan as pt more alert but mute and staring. 06/28 continue tx. constipation on KUB. Added senna to colace, ducolax given, may consider enema. 06/29: continue current mgmt. remains without stool. 06/30/2022 Patient withdrawn psychomotor retarded discussed with patient's staff option of possible ECT marked constipation without obstruction noted did not respond to enema. Reviewed case with hospitalist service given no obstruction bili soft no evidence of obstruction on abdominal x-ray start lactulose. Hold olanzapine given psychomotor retardation catatonic type symptoms would strongly consider option of ECT monitor for any evidence of abdominal obstruction Start lactulose. . Discontinue Olanzapine 07/01/22 Continue lactulose case reviewed with hospitalist service consider ECT olanzapine discontinued encourage fluids maintain clozapine at present dose secondary to constipation 07/04/22 Pt on golytely case reviewed extensively with the hospitalist service Dr. Hilton check clozapine level lithium level electrolytes abdominal x-ray nonobstructive pattern 07/05/2022 Patient intermittently with unsteady gait lower Ativan to 1 t.i.d. check lithium level and electrolytes coordinate with outpatient nurse practitioner Og Bryson continue clozapine sertraline 07/06 continue tx. 07/07/2022 electrolytes ok ll .53 Encouraged exposure to light and ambulation continue Ativan sertraline Clozaril olanzapine p.r.n. 07/08/22 Pt seen in f/u inc sertraline 200 mg inc donald 1.5 tid encourage walking oob more 07/09/2022 Patient seen in the kitchen there is some increased range of affect 07/10/2022 Patient continues to show some improvement Better they will functioning sertraline has been increased to 200 mg clozapine increased 300 mg Monitor for over sedation constipation encourage had a bed continue lorazepam for catatonia 07/11 keep same treatment. 07/12/2022 Continue clozapine sertraline patient is showing clear improvement 07/13/2022 Continue plan of care 07/14/2022 Continue plan of care. Patient still requires one-to-one during meals still at risk 07/15/2022 Continue clozapine sertraline lorazepam 07/16: Continue current regimen and plans Reason for continued inpatient stay Substantial Risk for: med/psych decompensation Time Spent With Patient Time: Total time managing care of this patient today ____ minutes.
[2022-07-16 19:50] VITALS: BP 118/62; PULSE 70; RESP 16; TEMP 36.6; O2SAT 96
[2022-07-16] MEDS: Sennosides 8.6 MG TABLET 17.2 MG PO (20:55)
[2022-07-16] MEDS: cloZAPine 100 MG TABLET 300 MG PO (20:56)
[2022-07-16] MEDS: Lithium Carbonate 300 MG CAPSULE 600 MG PO (20:56)
[2022-07-17 08:31] VITALS: BP 126/66; PULSE 73; TEMP 36.4; O2SAT 98
[2022-07-17] MEDS: polyethylene glycoL 3350 17 GM POWD.PACK PO (08:38)
[2022-07-17] MEDS: Tamsulosin HCL 0.4 MG CAPSULE PO (08:39)
[2022-07-17] MEDS: Sertraline HCL 100 MG TABLET 200 MG PO (08:39)
[2022-07-17] MEDS: Docusate Sodium 100 MG CAPSULE 200 MG PO ×2 (08:39→20:56)
[2022-07-17 08:40] LABS: Glucose, Whole Blood 86 mg/dL (60-115)
[2022-07-17] MEDS: LORazepam 1 MG TABLET PO ×3 (08:40→20:56)
[2022-07-17] MEDS: metFORMIN HCl ER 500 MG TAB.ER.24H PO (08:40)
--- NOTE | 2022-07-17 11:53 | HO.PSYCHPN ---
Subjective Subjective Date of Service: 07/17/22 Reason For Visit: psychosis Subjective Notes: Conditional Voluntary Healthcare Proxy: No Guardianship: No Medical Problems Affecting Mental Status: No Interim History: Patient was seen and discussed in rounds today. Records and plans were reviewed. He has been visible and overall stew in better. Continues to have some cognitive deficits with short-term memory. There was report of having some testicular pain but he denies it this morning. He is working towards discharged early this week. Eating and sleeping adequately. No changes were made today. Medication Compliance: Yes Side effects from medications: No Attending Groups: Yes Review of Systems Review of Systems Yes all other systems are reviewed and are negative Mental Status Exam Mental Status Exam Narrative: In today's visit he is alert, oriented and pleasant. Soft-spoken speech. Moderate eye contact. Affect is constricted. No acute signs of psychosis. Denies any auditory or visual hallucinations. No SI. Cognitively he has slow thought processes. Judgment is intact. Diagnostics Vital Signs (24Hr): Vital Signs - 24 hr 07/16/22 19:50 07/17/22 08:31 Temperature 97.9 F 97.5 F Pulse Rate 70 73 Respiratory Rate 16 Blood Pressure 118/62 126/66 Pulse Oximetry 96 98 Oxygen Delivery Method Room Air Room Air BMI result Body Mass Index 32.3 Labs 07/02/22 07:37 07/13/22 09:38 Labs: Laboratory Results - last 48 hr 07/16/22 07/16/22 07/17/22 06:31 08:31 08:35 Absolute Neuts (auto) 4.2 POC Glucose 94 86 Imaging Radiology Impressions: ITS Impressions Chest X-Ray 06/18/22 12:00 IMPRESSION: * Lungs are hypoinflated and right diaphragm elevated. * No evidence of pneumonia or congestive heart failure. KUB X-Ray 06/26/22 19:04 IMPRESSION: 1. Nonobstructive bowel gas pattern with a large colonic stool burden predominantly in the ascending colon and splenic flexure. KUB X-Ray 06/30/22 13:56 IMPRESSION: Large stool burden throughout the colon. Abdomen X-Ray 07/04/22 17:40 IMPRESSION: Large volume of stool in colon. Nonobstructive bowel pattern. Medications Medications Current Medications Acetaminophen (Acetaminophen 325 Mg Tablet) 650 mg PO Q6H PRN PRN Reason: Headache/Pain Mild Scale (1-3) Last Admin: 07/02/22 20:53 Dose: 650 mg Al Hydroxide/Mg Hydroxide (Magnesium Hydrox/Alum Hydrox 30 Ml Oral.Susp) 30 ml PO Q6H PRN PRN Reason: Heartburn/Nausea Clozapine (Clozapine 100 Mg Tablet) 300 mg PO BEDTIME [facility] Last Admin: 07/16/22 20:56 Dose: 300 mg Docusate Sodium (Docusate Sodium 100 Mg Capsule) 200 mg PO BID [facility] Last Admin: 07/17/22 08:39 Dose: 200 mg Guaifenesin (Guaifenesin 200 Mg/10 Ml 10 Ml Liquid) 10 ml PO Q4H PRN PRN Reason: productive cough Last Admin: 06/18/22 20:27 Dose: 10 ml [place] Carbonate ([place] Carbonate 300 Mg Capsule) 600 mg PO BEDTIME [facility] Last Admin: 07/16/22 20:56 Dose: 600 mg Lorazepam (Lorazepam 1 Mg Tablet) 1 mg PO TID [facility] Last Admin: 07/17/22 08:40 Dose: 1 mg Magnesium Hydroxide (Milk Of Magnesia 30 Ml Oral.Susp) 30 ml PO DAILY PRN PRN Reason: Constipation Last Admin: 06/29/22 10:49 Dose: 30 ml Metformin HCl (Metformin Hcl Er 500 Mg Tab.Er.24h) 500 mg PO DAILY [facility] Last Admin: 07/17/22 08:40 Dose: 500 mg Nicotine Polacrilex (Nicotine Polacrilex 2 Mg Gum) 4 mg BUCCAL Q2H PRN PRN Reason: Nicotine Cravings Olanzapine (Olanzapine 5 Mg Tablet) 5 mg PO TID PRN PRN Reason: agitation Last Admin: 06/25/22 20:14 Dose: 5 mg Polyethylene Glycol (Polyethylene Glycol 3350 17 Gm Powd.Pack) 17 gm PO DAILY [facility] Last Admin: 07/17/22 08:38 Dose: 17 gm Senna (Sennosides 8.6 Mg Tablet) 17.2 mg PO BEDTIME [facility] Last Admin: 07/16/22 20:55 Dose: 17.2 mg Sertraline HCl (Sertraline Hcl 100 Mg Tablet) 200 mg PO DAILY [facility] Last Admin: 07/17/22 08:39 Dose: 200 mg Tamsulosin HCl (Tamsulosin Hcl 0.4 Mg Capsule) 0.4 mg PO DAILY [facility] Last Admin: 07/17/22 08:39 Dose: 0.4 mg Trazodone HCl (Trazodone Hcl 50 Mg Tablet) 50 mg PO BEDTIME PRN PRN Reason: Insomnia Allergies Allergies Allergy/AdvReac Type Severity Reaction Status Date / Time No Known Allergies [NKA] Allergy Unknown NONE Verified 04/14/22 14:20 Assessment & Plan Assessment & Plan (1) Schizophrenia, catatonic: Status: Acute Code(s): 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 Tenorio is a 56 year-old male with hx of schizophrenia, stable for some years until he had declined in past 2-3 week. His [facility] case briefer contacted crisis as pt not verbal, appeared confused, not his baseline. Pt did start ibuprofen recently and in combination with lithium concern was potential lithium toxicity. [facility] provider noted jerk like movements which are not baseline. He did missed few doses prior to coming to the hospital. In the ED, lithium not toxic levels. However, it does seem some degree of underlying kidney disease with decrease creatinine clearance. Pt with s/s of catatonia including mutism, staring at wall, did improve once given ativan 2mg. He is on ativan 2mg po TID at home for years but may have missed some doses and in the ED ativan was ordered as PRN. Pt on clozaril but was restarted at 25mg po qhs given reports of pt missing more than 2 doses. He is currently on 50mg po qhs and will increase daily by 25mg. PLAN 1. Admit to M3, cv 15 minutes checks. 2. continue current medications.? continue titration of clozaril 50mg po qhs today, 75mg po qhs tomorrow. 3. obtain collateral information 4. Aftercare planning 06/15 continue tx. 06/16 increase ativan 2mg po QID. continue clozaril titration 06/17:? ativan increased from 2 mg TID to 2 mg QID today due to ongoing catatonia. 06/18: CXR no evidence of pneumonia or CHF. Monitor respiratory status. Continue psychiatric management. 06/19: Continue current tx plan. 06/20 lower ativan to 1mg po tid- pt appears more sedated than catatonic. .hypersalivation noted- ?rebound anticholigergic with lower dose of clozaril. Titrate clozaril to 125mg po qhs. Home? dose was 250mg po qhs. 06/21 continue current tx. continue to monitor sedation, O2sat. 06/22: stable.? no change in mgmt. 06/23: increase HS clozapine from 150 mg to 175 mg.? slightly less PMR. 06/24: appears sedated midday.? no increase in clozapine for today.? continue current mgmt. 06/25 continue tx. 06/26 did give extra dose of ativan with some effect. 06/27 continue tx. may increase ativan as pt more alert but mute and staring. 06/28 continue tx. constipation on KUB. Added senna to colace, ducolax given, may consider enema. 06/29: continue current mgmt. remains without stool. 06/30/2022 Patient withdrawn psychomotor retarded discussed with patient's staff option of possible ECT marked constipation without obstruction noted did not respond to enema. Reviewed case with hospitalist service given no obstruction bili soft no evidence of obstruction on abdominal x-ray start lactulose. Hold olanzapine given psychomotor retardation catatonic type symptoms would strongly consider option of ECT monitor for any evidence of abdominal obstruction Start lactulose. . Discontinue Olanzapine 07/01/22 Continue lactulose case reviewed with hospitalist service consider ECT olanzapine discontinued encourage fluids maintain clozapine at present dose secondary to constipation 07/04/22 Pt on golytely case reviewed extensively with the hospitalist service Dr. Hilton check clozapine level lithium level electrolytes abdominal x-ray nonobstructive pattern 07/05/2022 Patient intermittently with unsteady gait lower Ativan to 1 t.i.d. check lithium level and electrolytes coordinate with outpatient nurse practitioner Og Bryson continue clozapine sertraline 07/06 continue tx. 07/07/2022 electrolytes ok ll .53 Encouraged exposure to light and ambulation continue Ativan sertraline Clozaril olanzapine p.r.n. 07/08/22 Pt seen in f/u inc sertraline 200 mg inc donald 1.5 tid encourage walking oob more 07/09/2022 Patient seen in the kitchen there is some increased range of affect 07/10/2022 Patient continues to show some improvement Better they will functioning sertraline has been increased to 200 mg clozapine increased 300 mg Monitor for over sedation constipation encourage had a bed continue lorazepam for catatonia 07/11 keep same treatment. 07/12/2022 Continue clozapine sertraline patient is showing clear improvement 07/13/2022 Continue plan of care 07/14/2022 Continue plan of care. Patient still requires one-to-one during meals still at risk 07/15/2022 Continue clozapine sertraline lorazepam 07/16: Continue current regimen and plans 07/17: Continue current plans and regimen Reason for continued inpatient stay Substantial Risk for: med/psych decompensation Time Spent With Patient Time: Total time managing care of this patient today ____ minutes.
[2022-07-17 20:18] VITALS: BP 117/73; PULSE 79; RESP 16; TEMP 36.3; O2SAT 99
[2022-07-17] MEDS: Lithium Carbonate 300 MG CAPSULE 600 MG PO (20:56)
[2022-07-17] MEDS: cloZAPine 100 MG TABLET 300 MG PO (20:56)
[2022-07-17] MEDS: Sennosides 8.6 MG TABLET 17.2 MG PO (20:56)
[2022-07-18 08:00] VITALS: BP 116/61; PULSE 81; TEMP 36.4; O2SAT 96
[2022-07-18 08:50] LABS: Glucose, Whole Blood 92 mg/dL (60-115)
[2022-07-18] MEDS: polyethylene glycoL 3350 17 GM POWD.PACK PO (08:59)
[2022-07-18] MEDS: Tamsulosin HCL 0.4 MG CAPSULE PO (08:59)
[2022-07-18] MEDS: Docusate Sodium 100 MG CAPSULE 200 MG PO ×2 (09:00→21:00)
[2022-07-18] MEDS: metFORMIN HCl ER 500 MG TAB.ER.24H PO (09:01)
[2022-07-18] MEDS: Sertraline HCL 100 MG TABLET 200 MG PO (09:01)
[2022-07-18] MEDS: LORazepam 1 MG TABLET PO ×3 (09:01→21:00)
--- NOTE | 2022-07-18 14:53 | HO.PSYCHPN ---
Subjective Subjective Date of Service: 07/18/22 Reason For Visit: psychosis Subjective Notes: Conditional Voluntary Interim History: Pt reports feeling better. His speech is more spontaneous. He is visible on the unit and social with select peers. No VH/AH. No overt delusional content noted or reported. No SI/HI. He is completing ADL on his own. No behavioral concerns. d/c tomorrow. Medication Compliance: Yes Mental Status Exam Mental Status Exam Narrative: Appearance: wearing hospital gown, poor eye contact, in NAD Behavior: cooperative Psychomotor: no agitation or retardation noted Speech: clear, regular response rate, spontaneous TP: linear TC: feeling better, wanting to go home soon Affect: brighter SI: none expressed HI: none expressed VH/AH: none expressed Delusions: no overt delusional content noted or reported. Insight/judgment: fair x 2. Memory/cog: alert, oriented x 3. Diagnostics Vital Signs (24Hr): Vital Signs - 24 hr 07/17/22 20:18 07/18/22 08:00 Temperature 97.3 F 97.6 F Pulse Rate 79 81 Respiratory Rate 16 Blood Pressure 117/73 116/61 Pulse Oximetry 99 96 Oxygen Delivery Method Room Air Room Air BMI result Body Mass Index 32.3 Labs 07/02/22 07:37 07/13/22 09:38 Labs: Laboratory Results - last 48 hr 07/17/22 07/18/22 08:35 08:46 POC Glucose 86 92 Imaging Radiology Impressions: ITS Impressions Chest X-Ray 06/18/22 12:00 IMPRESSION: * Lungs are hypoinflated and right diaphragm elevated. * No evidence of pneumonia or congestive heart failure. KUB X-Ray 06/26/22 19:04 IMPRESSION: 1. Nonobstructive bowel gas pattern with a large colonic stool burden predominantly in the ascending colon and splenic flexure. KUB X-Ray 06/30/22 13:56 IMPRESSION: Large stool burden throughout the colon. Abdomen X-Ray 07/04/22 17:40 IMPRESSION: Large volume of stool in colon. Nonobstructive bowel pattern. Medications Medications Current Medications Acetaminophen (Acetaminophen 325 Mg Tablet) 650 mg PO Q6H PRN PRN Reason: Headache/Pain Mild Scale (1-3) Last Admin: 07/02/22 20:53 Dose: 650 mg Al Hydroxide/Mg Hydroxide (Magnesium Hydrox/Alum Hydrox 30 Ml Oral.Susp) 30 ml PO Q6H PRN PRN Reason: Heartburn/Nausea Clozapine (Clozapine 100 Mg Tablet) 300 mg PO BEDTIME [facility] Last Admin: 07/17/22 20:56 Dose: 300 mg Docusate Sodium (Docusate Sodium 100 Mg Capsule) 200 mg PO BID [facility] Last Admin: 07/18/22 09:00 Dose: 200 mg Guaifenesin (Guaifenesin 200 Mg/10 Ml 10 Ml Liquid) 10 ml PO Q4H PRN PRN Reason: productive cough Last Admin: 06/18/22 20:27 Dose: 10 ml [place] Carbonate ([place] Carbonate 300 Mg Capsule) 600 mg PO BEDTIME [facility] Last Admin: 07/17/22 20:56 Dose: 600 mg Lorazepam (Lorazepam 1 Mg Tablet) 1 mg PO TID [facility] Last Admin: 07/18/22 14:35 Dose: 1 mg Magnesium Hydroxide (Milk Of Magnesia 30 Ml Oral.Susp) 30 ml PO DAILY PRN PRN Reason: Constipation Last Admin: 06/29/22 10:49 Dose: 30 ml Metformin HCl (Metformin Hcl Er 500 Mg Tab.Er.24h) 500 mg PO DAILY [facility] Last Admin: 07/18/22 09:01 Dose: 500 mg Nicotine Polacrilex (Nicotine Polacrilex 2 Mg Gum) 4 mg BUCCAL Q2H PRN PRN Reason: Nicotine Cravings Olanzapine (Olanzapine 5 Mg Tablet) 5 mg PO TID PRN PRN Reason: agitation Last Admin: 06/25/22 20:14 Dose: 5 mg Polyethylene Glycol (Polyethylene Glycol 3350 17 Gm Powd.Pack) 17 gm PO DAILY [facility] Last Admin: 07/18/22 08:59 Dose: 17 gm Senna (Sennosides 8.6 Mg Tablet) 17.2 mg PO BEDTIME [facility] Last Admin: 07/17/22 20:56 Dose: 17.2 mg Sertraline HCl (Sertraline Hcl 100 Mg Tablet) 200 mg PO DAILY [facility] Last Admin: 07/18/22 09:01 Dose: 200 mg Tamsulosin HCl (Tamsulosin Hcl 0.4 Mg Capsule) 0.4 mg PO DAILY [facility] Last Admin: 07/18/22 08:59 Dose: 0.4 mg Trazodone HCl (Trazodone Hcl 50 Mg Tablet) 50 mg PO BEDTIME PRN PRN Reason: Insomnia Allergies Allergies Allergy/AdvReac Type Severity Reaction Status Date / Time No Known Allergies [NKA] Allergy Unknown NONE Verified 04/14/22 14:20 Assessment & Plan Assessment & Plan (1) Schizophrenia, catatonic: Status: Acute Code(s): 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 Tenorio is a 56 year-old male with hx of schizophrenia, stable for some years until he had declined in past 2-3 week. His [facility] nurse outreach case manager contacted crisis as pt not verbal, appeared confused, not his baseline. Pt did start ibuprofen recently and in combination with lithium concern was potential lithium toxicity. [facility] provider noted jerk like movements which are not baseline. He did missed few doses prior to coming to the hospital. In the ED, lithium not toxic levels. However, it does seem some degree of underlying kidney disease with decrease creatinine clearance. Pt with s/s of catatonia including mutism, staring at wall, did improve once given ativan 2mg. He is on ativan 2mg po TID at home for years but may have missed some doses and in the ED ativan was ordered as PRN. Pt on clozaril but was restarted at 25mg po qhs given reports of pt missing more than 2 doses. He is currently on 50mg po qhs and will increase daily by 25mg. PLAN 1. Admit to M3, cv 15 minutes checks. 2. continue current medications.? continue titration of clozaril 50mg po qhs today, 75mg po qhs tomorrow. 3. obtain collateral information 4. Aftercare planning 06/15 continue tx. 06/16 increase ativan 2mg po QID. continue clozaril titration 06/17:? ativan increased from 2 mg TID to 2 mg QID today due to ongoing catatonia. 06/18: CXR no evidence of pneumonia or CHF. Monitor respiratory status. Continue psychiatric management. 06/19: Continue current tx plan. 06/20 lower ativan to 1mg po tid- pt appears more sedated than catatonic. .hypersalivation noted- ?rebound anticholigergic with lower dose of clozaril. Titrate clozaril to 125mg po qhs. Home? dose was 250mg po qhs. 06/21 continue current tx. continue to monitor sedation, O2sat. 06/22: stable.? no change in mgmt. 06/23: increase HS clozapine from 150 mg to 175 mg.? slightly less PMR. 06/24: appears sedated midday.? no increase in clozapine for today.? continue current mgmt. 06/25 continue tx. 06/26 did give extra dose of ativan with some effect. 06/27 continue tx. may increase ativan as pt more alert but mute and staring. 06/28 continue tx. constipation on KUB. Added senna to colace, ducolax given, may consider enema. 06/29: continue current mgmt. remains without stool. 06/30/2022 Patient withdrawn psychomotor retarded discussed with patient's staff option of possible ECT marked constipation without obstruction noted did not respond to enema. Reviewed case with hospitalist service given no obstruction bili soft no evidence of obstruction on abdominal x-ray start lactulose. Hold olanzapine given psychomotor retardation catatonic type symptoms would strongly consider option of ECT monitor for any evidence of abdominal obstruction Start lactulose. . Discontinue Olanzapine 07/01/22 Continue lactulose case reviewed with hospitalist service consider ECT olanzapine discontinued encourage fluids maintain clozapine at present dose secondary to constipation 07/04/22 Pt on golytely case reviewed extensively with the hospitalist service Dr. Hilton check clozapine level lithium level electrolytes abdominal x-ray nonobstructive pattern 07/05/2022 Patient intermittently with unsteady gait lower Ativan to 1 t.i.d. check lithium level and electrolytes coordinate with outpatient nurse practitioner Og Bryson continue clozapine sertraline 07/06 continue tx. 07/07/2022 electrolytes ok ll .53 Encouraged exposure to light and ambulation continue Ativan sertraline Clozaril olanzapine p.r.n. 07/08/22 Pt seen in f/u inc sertraline 200 mg inc donald 1.5 tid encourage walking oob more 07/09/2022 Patient seen in the kitchen there is some increased range of affect 07/10/2022 Patient continues to show some improvement Better they will functioning sertraline has been increased to 200 mg clozapine increased 300 mg Monitor for over sedation constipation encourage had a bed continue lorazepam for catatonia 07/11 keep same treatment. 07/12/2022 Continue clozapine sertraline patient is showing clear improvement 07/13/2022 Continue plan of care 07/14/2022 Continue plan of care. Patient still requires one-to-one during meals still at risk 07/15/2022 Continue clozapine sertraline lorazepam Continue have speech work with patient on swallowing and more awareness portions and showing 07/18 continue tx. stable, d/c tomorrow. Reason for continued inpatient stay Substantial Risk for: stable for discharge Time Spent With Patient Time: Total time managing care of this patient today ____ minutes.
[2022-07-18] MEDS: Milk of Magnesia 30 ML ORAL.SUSP PO (17:37)
--- NOTE | 2022-07-18 17:39 | PC.NURSE ---
Per EMR, RN report, patient has not had BM x2 days. Reviewed w/ provider and patient. Patient given MOM per provider recommendation.
[2022-07-18 20:30] VITALS: BP 131/75; PULSE 73; RESP 16; TEMP 36.6; O2SAT 98
[2022-07-18] MEDS: Lithium Carbonate 300 MG CAPSULE 600 MG PO (21:00)
[2022-07-18] MEDS: cloZAPine 100 MG TABLET 300 MG PO (21:00)
[2022-07-18] MEDS: Sennosides 8.6 MG TABLET 17.2 MG PO (21:00)
[2022-07-19 08:15] LABS: Glucose, Whole Blood 91 mg/dL (60-115)
[2022-07-19] MEDS: polyethylene glycoL 3350 17 GM POWD.PACK PO (08:15)
[2022-07-19] MEDS: Tamsulosin HCL 0.4 MG CAPSULE PO (08:17)
[2022-07-19] MEDS: LORazepam 1 MG TABLET PO ×2 (08:17→14:12)
[2022-07-19] MEDS: Docusate Sodium 100 MG CAPSULE 200 MG PO (08:18)
[2022-07-19] MEDS: Sertraline HCL 100 MG TABLET 200 MG PO (08:18)
[2022-07-19] MEDS: metFORMIN HCl ER 500 MG TAB.ER.24H PO (08:18)
[2022-07-19 08:35] VITALS: BP 106/61; PULSE 77; RESP 16; TEMP 36.6; O2SAT 96
--- NOTE | 2022-07-19 13:35 | PM.PSYDC ---
DS: Providers Provider Date of Service: 07/19/22 Date of admission: 06/13/22 23:36 Primary care physician: Jonn Smith MD DS: Diagnosis Discharge Diagnosis (1) Schizophrenia, catatonic: Status: Acute DS: Medications Discharge Medications Home Medications: Previous Rx's Medication Instructions Recorded clozapine 100 mg tablet 300 mg PO BEDTIME #45 tabs 07/19/22 docusate sodium 100 mg capsule 200 mg PO BID #120 caps 07/19/22 lithium carbonate 300 mg capsule 600 mg PO BEDTIME #60 caps 07/19/22 lorazepam 1 mg tablet 1 mg PO TID #90 tabs 07/19/22 metformin 500 mg tablet,extended 500 mg PO DAILY #30 tabs 07/19/22 release 24 hr polyethylene glycol 3350 8.5 gram 17 g PO DAILY #72 ea 07/19/22 oral powder packet sennosides 8.6 mg tablet (Senna 17.2 mg PO BEDTIME #30 tabs 07/19/22 Lax) sertraline 100 mg tablet 200 mg PO DAILY #60 tabs 07/19/22 tamsulosin 0.4 mg capsule 0.4 mg PO DAILY #30 caps 07/19/22 Mental Status Exam Mental Status Exam Narrative: Appearance: wearing hospital gown, poor eye contact, in NAD Behavior: cooperative Psychomotor: no agitation or retardation noted Speech: clear, regular response rate, spontaneous TP: linear TC: feeling better, wanting to go home soon Affect: brighter SI: none expressed HI: none expressed VH/AH: none expressed Delusions: no overt delusional content noted or reported. Insight/judgment: fair x 2. Memory/cog: alert, oriented x 3. Data Data Completed and Pending Completed studies during hospitalization [Text1]: 07/13/22 07/13/22 07/14/22 08:20 09:38 08:22 Absolute Neuts (auto) Creatinine 1.45 H Estim Creat Clear Calc 63.6 Estimated GFR 50 POC Glucose 96 97 07/15/22 07/16/22 07/16/22 08:11 06:31 08:31 Absolute Neuts (auto) 4.2 Creatinine Estim Creat Clear Calc Estimated GFR POC Glucose 101 94 07/17/22 07/18/22 07/19/22 08:35 08:46 08:10 Absolute Neuts (auto) Creatinine Estim Creat Clear Calc Estimated GFR POC Glucose 86 92 91 Imaging Diagnostic Imaging Impressions Chest X-Ray 06/18/22 12:00 IMPRESSION: * Lungs are hypoinflated and right diaphragm elevated. * No evidence of pneumonia or congestive heart failure. KUB X-Ray 06/26/22 19:04 IMPRESSION: 1. Nonobstructive bowel gas pattern with a large colonic stool burden predominantly in the ascending colon and splenic flexure. KUB X-Ray 06/30/22 13:56 IMPRESSION: Large stool burden throughout the colon. Abdomen X-Ray 07/04/22 17:40 IMPRESSION: Large volume of stool in colon. Nonobstructive bowel pattern. DS: Summary Hospital Course Hospital Course: ?[place]o Warning (given and shows understanding) and Conditional Voluntary Narrative: Mr. Tenorio is a 56 year-old male with hx of schizophrenia. Pt was brought via EMS after [facility] worker contacted crisis as pt presenting as confused, not talking, staring, which is not his usual. Per [facility] worker, pt was started on ibuprofen about 2 weeks ago and after had change in mentation. He is also on lithium therefore there was concern of lithium toxicity with combination of medication. Pt apparently had stopped some medications prior to being brought to [facility] ED, which appears to be more result of confusion/AMS as this is also not his usual. On the unit, pt presents with black stare, delayed response rate. He did brighten up more after ativan 2mg po. He has ativan 2mg po TID for several years. He denies SI/HI. He denies VH/AH. He was more visible in the afternoon and attended some groups. No behavioral concerns. Past Psychiatric History: Inpatient: multiple in the past.? OP: [facility] ? Past medication trials: clozaril, ativan, sertraline, olanzapine. Medical Evaluation Reviewed: Yes HOSPITAL COURSE On the unit, pt was admitted on a CV and placed on 15 minutes checks for safety. Pt presented as confused, with significant psychomotor retardation, mutism and wisome degree of ataxic gait and unsteady gait which required him to be on one to one. After discussing risks, benefits and alternative treatment options, Pt was restarted on ativan, clozaril, lithium. He had been on lorazepam 2mg po TID for several years. He did seem to have episodes of hypoxia at night, which could be result of underlying sleep apnea. He has not had a sleep study but pt recommended to have one outpatient. He also appeared somewhat lethargic (more than catatonic at that point, no waxy flexibility, or blank staring) and ativan was decreased to 1mg po TID. He was continued on clozaril but olanzapine was discontinued to avoid unnecessary side effects such as constipation, over sedation without clear therapeutic benefit. He did not report or present with overt psychosis or delusional content. His clozaril was titrated to 300mg po qhs. Sertraline was increase to 200mg po daily. He did have severe constipation without signs of obstruction. MIralax and senna were added to bowel regimen. There were no disruptive behaviors nor need for restraint. He gradually presented with much brighter affect and his gait improved. He was able to complete ADLS on his own as usual. He was more visible on the unit and social with select peers. No SI/HI. Status at Discharge Cognitive/behavioral status at discharge: Pt with brighter, non labile, although limited range of affect is his baseline. No SI/HI. No psychosis or delusions. Pt sleeping and eating well. No signs of aggression towards self or others. No signs of aggression towards self or others. Functional status at discharge: independent ambulation Overall status at discharge: patient is progressing back to baseline Time Spent with Patient Time attestation: Total time managing care of this patient today ____ minutes. Discharge Plan Discharge Anticipated Discharge Date/Time: 07/19/22 13:36 Discharge Diagnosis: Schizophrenia Referrals: Jonn Smith MD [Primary Care Provider] - 08/04/22 10:30 am (Follow up appointment made to see Wanda Ernst NP, spoke with Juanita at [facility]) Discharge Medications: New clozapine 100 mg Tablet 300 mg PO BEDTIME Qty: 45 0RF sertraline 100 mg Tablet 200 mg PO DAILY Qty: 60 0RF tamsulosin 0.4 mg Capsule 0.4 mg PO DAILY Qty: 30 0RF lithium carbonate 300 mg Capsule 600 mg PO BEDTIME Qty: 60 0RF docusate sodium 100 mg Capsule 200 mg PO BID Qty: 120 0RF lorazepam 1 mg Tablet 1 mg PO TID Qty: 90 0RF polyethylene glycol 3350 8.5 gram powder in packet 17 g PO DAILY Qty: 72 0RF sennosides [Senna Lax] 8.6 mg Tablet 17.2 mg PO BEDTIME Qty: 30 0RF metformin 500 mg Tablet Extended Release 24 Hr 500 mg PO DAILY Qty: 30 0RF Discontinued lorazepam 2 mg tablet 1 tab PO TID PRN (Reason: Anxiety) sertraline 100 mg tablet 150 mg PO QAM olanzapine 10 mg tablet 1 tab PO BEDTIME metformin 500 mg tablet extended release 24 hr 1 tab PO DAILY tamsulosin 0.4 mg capsule 1 cap PO DAILY clozapine 100 mg tablet 250 mg PO BEDTIME lithium carbonate 300 mg capsule 600 mg PO BEDTIME Discharge Orders: Discharge Order (Routine); Ordered 07/19/22 Ordered By: Dahiana Haney Diet: Regular diet Activity on Discharge: As tolerated Stand Alone Forms: Patient Portal Discharge page Care Plan Goals: 1. Maintain mood 2. No SI/HI 3. No overt psychosis or delusional content noted or reported Health Concerns: Follow up with PCP to schedule sleep study and routine care Plan of Treatment: 1. Take medications as prescribed 2. Go to nearest ED or call 911 in event of emergency Assessment: Pt with brighter, non labile affect (still with some degree of limited range of affect but this is baseline). No SI/HI. No overt psychosis or delusional content. Pt sleeping and eating well. Future oriented. No s/s of catatonia or psychomotor retardation noted.
--- NOTE | 2022-07-19 15:08 | MHC.SL.SWA ---
Addendum entered and electronically signed by Nona Whitmore MA, CCC-SOLAR SALES ASSOCIATE 07/22/22 14:46: D.S. Original Note: Risk of Aspiration Due to: Reduced Cognition Dysphasia Diet Status: No change Liquid Consistency and Strategies for Safe Swallow: Liquid Intake Recommendation: Thin Liquid Intake Strategies: Small Sips Solid Food Consistency: Dietary Recommendations: Chopped/Advanced (NDD3) Additional Modifications to Solid Foods: Will request patient be cleared for bread so he can access sandwiches and burgers with bun. Patient continues to require supervision during meals, as he is at risk for packing mouth, creating choking risk. e.g. Patient has been previously viewed to benefit from occasional cuing to stop and finish eating what is in his mouth before adding more food. Oral Medication Intake: Whole with Liquid Please contact the pharmacy regarding appropriate crushable or liquid drug formulations that are available whenever modified delivery is recommended. Compensatory Strategies and Precautions to be Taken for Safe Swallow: Sitting Upright (90 deg) Liquids from Cup Liquids from Straw Small Bites and Sips Alternate Liquids/Solids Rate of Ingestion Change Supervision While Eating and Drinking for Safe Swallow: Total Supervision (1:1) Foods to Avoid: Large pieces of food, difficult to chew solids. Swallowing Recommended Treatments: Compens. Strategy Educat. Recommendation for Speech: Inpatient Speech Therapy Pt seen this afternoon prior to d/c. Pt reports that he has been tolerating current diet well. RN reports pt complaining of consistent gurgly feeling in throat. SOLAR SALES ASSOCIATE provided education and resources to pt. SOLAR SALES ASSOCIATE recommended if sensation in throat persists, ptshould see doctor for referral for ENT and/or SOLAR SALES ASSOCIATE. SOLAR SALES ASSOCIATE provided educational reminders of safe eating strategies: small bites/sips, wait to introduce new bites, chew well. Registered Diet Technician Clinican/Clinical Fellow: Yes: Lilliana Montenegro M.A., CF-[employer] SAL[employer] ASSOCIATE
--- NOTE | 2022-07-19 15:22 | PC.NURSE ---
Patient alert, oriented, engages in conversation, responses increasingly spontaneous. Describes depression and anxiety at about a 4, but denies SI AH/VH or any other concerns. States he is looking forward to returning home this afternoon, denies any concerns about upcoming discharge. Reviewed discharge instructions- patient verbalized understanding. Reviewed belongings w/ patient- patient thought he had a duffel bag here as well but not on belongings list. ED called as well- no belongings there. Patient states that they may be w/ [facility]. No other concerns reported. Patient discharged to care of his staff .
== END 2022-07-19 15:12 | disposition home or self-care (01) | DRG 885 ==
LOC: HO.ED 06-12 14:47 → HO.PGERI 06-13 23:51 → HO.PADLT16 06-13 23:57
PROVIDERS: Physician Assistant; Psychiatry & Neurology Psychiatry; Admitting Provider Psychiatry & Neurology Psychiatry; Emergency Provider Emergency Medicine Emergency Medical Services; PCP Internal Medicine; Visit Provider Social Worker
DX: F20.2 Catatonic schizophrenia (principal); N40.0 Benign prostatic hyperplasia without lower urinary tract symptoms; Z20.822 Contact with and (suspected) exposure to COVID-19; Z79.84 Long term (current) use of oral hypoglycemic drugs; Z79.899 Other long term (current) drug therapy
CPT/HCPCS: 36415; 71045; 74018; 80053; 80061; 80159; 80178; 80307; 81001; 82077; 82565; 82947; 83036; 85025; 85048; 87635; 92526; 92610; 93005; 97162; 99285

== ENCOUNTER 2022-07-26 13:36 | Outpatient (REF) | payer MEDICARE, MEDICAID, SELFPAY ==
[2022-07-26 13:54] LABS: MANUAL DIFF FLAG NO
[2022-07-26 14:22] LABS: Basophils Percent Auto 0.1 % (0-2); Hematocrit 39.7 % (42.0-52.0); Hemoglobin 12.7 g/dl (14.0-18.0); Imm Gran Abs Auto 0.04 X10*3/uL (0.00-0.03); Imm Gran Pct Auto 0.5 % (0.0-0.4); Lymphocytes Absolute Auto 1.4 X10*3/uL (1.2-4.9); Lymphocytes Percent Auto 17.8 % (20-40); Mean Corpuscular Hemoglobin 28.5 pg (27.0-33.0); Monocytes Absolute Auto 0.5 X10*3/uL (0.1-1.2); Neutrophils Absolute Auto 5.7 x10*3/uL (2.0-8.3); Neutrophils Percent Auto 74.6 % (45-73); Platelet Count 180 X10*3/uL (160-400); Red Blood Count 4.46 X10*6/uL (4.60-5.80); White Blood Count 7.6 X10*3/uL (4.8-10.8)
== END 2022-07-26 13:37 | disposition home or self-care (01) ==
LOC: HO.LABR 13:36
PROVIDERS: PCP Internal Medicine; Visit Provider Clinical Nurse Specialist Psychiatric/Mental Health, Adult
DX: Z79.899 Other long term (current) drug therapy (principal)
CPT/HCPCS: 36415; 85025

== ENCOUNTER → 2022-08-14 19:30 | Outpatient (REF) | payer MEDICARE, MEDICAID, SELFPAY | LOC: HO.SL 19:30 | PROVIDERS: PCP Internal Medicine; Visit Provider Nurse Practitioner Family | DX: Z13.89 Encounter for screening for other disorder (principal) ==

== ENCOUNTER 2022-08-18 13:26 | Outpatient (REF) | payer MEDICARE, MEDICAID, SELFPAY ==
[2022-08-18 14:42] LABS: Lithium 0.67 mmol/L (0.60-1.20)
[2022-08-18 14:47] LABS: Anion Gap 12 (12-20); Blood Urea Nitrogen 13 mg/dL (9-16); Calcium 8.9 mg/dL (8.4-10.2); Carbon Dioxide 29 mmol/L (22-29); Chloride 107 mmol/L (96-108); Estimated Glomerular Filt Rate > 60; Glucose Random 90 mg/dL (60-115); Potassium 4.5 mmol/L (3.3-5.1); Sodium 143 mmol/L (135-145)
== END 2022-08-18 13:27 | disposition home or self-care (01) ==
LOC: HO.LAB 13:26
PROVIDERS: Visit Provider Clinical Nurse Specialist Psychiatric/Mental Health, Adult
DX: Z79.899 Other long term (current) drug therapy (principal)
CPT/HCPCS: 36415; 80048; 80178

== ENCOUNTER 2022-08-26 11:09 | Outpatient (REF) | payer MEDICARE, MEDICAID, SELFPAY ==
[2022-08-26 11:24] LABS: MANUAL DIFF FLAG NO
[2022-08-26 12:27] LABS: Basophils Percent Auto 0.1 % (0-2); Hematocrit 40.2 % (42.0-52.0); Hemoglobin 12.6 g/dl (14.0-18.0); Imm Gran Abs Auto 0.04 X10*3/uL (0.00-0.03); Imm Gran Pct Auto 0.5 % (0.0-0.4); Lymphocytes Absolute Auto 1.4 X10*3/uL (1.2-4.9); Lymphocytes Percent Auto 19.2 % (20-40); Mean Corpuscular HGB Conc 31.3 g/dl (31.0-36.0); Mean Corpuscular Hemoglobin 28.8 pg (27.0-33.0); Monocytes Absolute Auto 0.5 X10*3/uL (0.1-1.2); Monocytes Percent Auto 6.7 % (2-11); Neutrophils Absolute Auto 5.4 x10*3/uL (2.0-8.3); Neutrophils Percent Auto 73.5 % (45-73); Platelet Count 170 X10*3/uL (160-400); Red Blood Count 4.37 X10*6/uL (4.60-5.80); Red Cell Distribution Width 13.7 % (11.0-16.0); White Blood Count 7.3 X10*3/uL (4.8-10.8)
== END 2022-08-26 11:10 | disposition home or self-care (01) ==
LOC: HO.LABR 11:09
PROVIDERS: PCP Internal Medicine; Visit Provider Clinical Nurse Specialist Psychiatric/Mental Health, Adult
DX: Z79.899 Other long term (current) drug therapy (principal)
CPT/HCPCS: 36415; 85025

== ENCOUNTER 2022-09-22 13:42 | Outpatient (REF) | payer MEDICARE, MEDICAID, SELFPAY ==
[2022-09-22 13:51] LABS: MANUAL DIFF FLAG NO
[2022-09-22 14:38] LABS: Basophils Percent Auto 0.1 % (0-2); Hematocrit 38.2 % (42.0-52.0); Imm Gran Abs Auto 0.03 X10*3/uL (0.00-0.03); Imm Gran Pct Auto 0.4 % (0.0-0.4); Lymphocytes Absolute Auto 1.7 X10*3/uL (1.2-4.9); Lymphocytes Percent Auto 20.5 % (20-40); Mean Corpuscular HGB Conc 31.4 g/dl (31.0-36.0); Mean Corpuscular Hemoglobin 28.8 pg (27.0-33.0); Mean Corpuscular Volume 91.8 fL (80.0-98.0); Monocytes Absolute Auto 0.6 X10*3/uL (0.1-1.2); Monocytes Percent Auto 7.5 % (2-11); Neutrophils Absolute Auto 5.9 x10*3/uL (2.0-8.3); Neutrophils Percent Auto 71.5 % (45-73); Platelet Count 185 X10*3/uL (160-400); Red Blood Count 4.16 X10*6/uL (4.60-5.80); Red Cell Distribution Width 13.7 % (11.0-16.0); White Blood Count 8.3 X10*3/uL (4.8-10.8)
== END 2022-09-22 13:43 | disposition home or self-care (01) ==
LOC: HO.LABR 13:42
PROVIDERS: Visit Provider Clinical Nurse Specialist Psychiatric/Mental Health, Adult
DX: Z79.899 Other long term (current) drug therapy (principal)
CPT/HCPCS: 36415; 85025

== ENCOUNTER 2022-10-12 10:23 | Outpatient (AMB) | payer MEDICARE, MEDICAID, SELFPAY ==
--- NOTE | 2022-10-12 10:27 | A.OFFPC_ITS ---
Vital Signs 10/12/22 10:29 Height 5 ft 10 in Weight 213 lb 8 oz BMI 30.6 BP 130/82 Blood Pressure Location Lt brachial Position Sitting Pulse 82 Pulse Source Pulse Oximeter Pulse Oximetry (%) 95 Oxygen Delivery Method Room Air Intake Visit Reasons: 6m F/U Intake Note: Patient is here to follow up on DM, HTN, Schizophernia. [employer] Supervisor Required: No Manager Casino: Not Required per policy Accompanied by: Self / Same As Patient Allergies No Known Allergies [NKA] Allergy (Unknown, Verified 10/12/22 10:29) NONE Tobacco use date assessed: 10/12/22 Dental Screening Dental Screen Date: 10/12/22 Did you have a dental visit in the last 12 months?: Yes Did you have a dental problem in the last 6 months where you did not have access to dental care?: No Was dental information given to patient?: Patient has dentist HPI 6m F/U HPI Details 57-year-old male presents to the office for a follow-up visit. He comes alone to the office. He reports that somebody supervises him for taking medications. Patient lives alone and came to the office driving. Able to function and do activities of daily living. [facility] Medical History BPH (benign prostatic hyperplasia) Diabetes mellitus Essential (primary) hypertension Schizophrenia, unspecified Screening for colon cancer Screening for prostate cancer Surgical History History of colonoscopy History of root canal procedure History of tooth extraction Family History Mother Cancer Father Kidney agenesis Social History Household Members: None Housing: Apartment Do you presently have visiting nurse or other home services: Yes Alcohol intake: never Patient Tobacco Use Status: Never used Tobacco e-Cigarette/Vaping Use: Never Used Second Hand Smoke Exposure: No service: No Current occupational status: employed Sexual orientation: Don't Know Cognitive needs: No Hearing needs: No Vision needs: No Questionnaire Thrive Questionnaire Date Thrive assessed: 04/14/22 JONAH-7 AMB Questionnaire JONAH-7 Date JONAH - 7 assessed: 10/12/22 Feeling nervous, anxious, or on edge: 0 = Not at all Not being able to stop or control worryin = Not at all Worrying too much about different things: 0 = Not at all Trouble relaxin = Not at all Being so restless that it is hard to sit still: 0 = Not at all Becoming easily annoyed or irritable: 0 = Not at all Feeling afraid as if something awful might happen: 0 = Not at all Total JONAH-7 score (0-4 normal; 5-9 mild; 10-14 moderate; 15-21 severe): 0 Source: Developed by Drs. Jacob Bates, Farrah Scott, Jose Martin Powell and colleagues, with an educational brigid from [employer]. Physical exam (Primary Care) Vital Signs: Last Vital Signs Pulse 82 10/12/22 10:29 BP 130/82 10/12/22 10:29 Pulse Ox 95 10/12/22 10:29 Oxygen Delivery Method Room Air 10/12/22 10:29 BMI result Body Mass Index 30.6 Tobacco/Smoking Status: Tobacco use Status Tobacco use date assessed 10/12/22 10/12/22 10:37 Patient Tobacco Use Status Never used Tobacco 10/12/22 10:37 e-Cigarette/Vaping Use Never Used 10/12/22 10:37 Thrive Assessment: Date of Thrive Assessment Date Thrive assessed 04/14/22 10/12/22 10:37 Const General: cooperative, healthy appearing and comfortable HENMT Head: Yes normal to inspection and Yes atraumatic Eyes General: appearance normal, both eyes and all related structures Neck Neck: Yes normal visual inspection and Yes full ROM Chest Chest palpation & inspection: normal inspection of the chest Resp Effort & Inspection: normal respiratory effort Auscultation: clear to auscultation bilaterally Cardio Jugular venous distension: no JVD Palpation: normal PMI Rate: regular rate Heart sounds: S1 normal heart sound present and S2 normal heart sound present GI Palpation (GI): Soft to palpation and No hepatosplenomegaly present Extrem General: Yes normal to inspection and Yes full ROM Results AMB Hemoglobin A1c AMB Hemoglobin A1c 5.1 % Last Edit by CORRY Harris on 10/12/22 10:40 Results Reviewed Results Reviewed: Laboratory Last Values Hgb A1c (Clinic) 5.1 % (4.0-6.0) 10/12/22 10:27 Assessment and Plan Assessment & Plan (1) Schizophrenia, catatonic: Code(s): F20.2 - Catatonic schizophrenia Plan: This condition is much improved. Patient is able to live independently, Drive and do a few activities of daily living independently. Continue current medications. (2) Essential hypertension: Code(s): I10 - Essential (primary) hypertension Plan: Blood pressure is in range. Continue current medications. (3) Diabetes mellitus: Code(s): E11.9 - Type 2 diabetes mellitus without complications Qualifiers: Diabetes mellitus type: type 2 Diabetes mellitus [facility] insulin use: without [facility] use Diabetes mellitus complication status: with hyperglycemia Qualified Code(s): E11.65 - Type 2 diabetes mellitus with hyperglycemia Plan A1c is in range. Continue current medications. Orders: Orders AMB Hemoglobin A1c Today E11.9 - Type 2 diabetes mellitus without complications Coding Level of Care Code Est Pt Level 4 (48721) Diagnoses Schizophrenia, catatonic F20.2 Essential hypertension I10 Diabetes mellitus E11.65 Diabetes mellitus type: type 2 Diabetes mellitus [facility] insulin use: without [facility] use Diabetes mellitus complication status: with hyperglycemia
[2022-10-12 10:29] VITALS: BP 130/82; PULSE 82; O2SAT 95; BMI 30.6
== END 2022-10-12 11:23 | disposition home or self-care (01) ==
PROVIDERS: PCP Internal Medicine; Visit Provider Internal Medicine
DX: F20.2 Catatonic schizophrenia (principal); I10 Essential (primary) hypertension; E11.65 Type 2 diabetes mellitus with hyperglycemia; E11.9 Type 2 diabetes mellitus without complications
CPT/HCPCS: 83036; 99214

== ENCOUNTER 2022-10-22 09:21 | Outpatient (REF) | payer MEDICARE, MEDICAID, SELFPAY ==
[2022-10-22 10:13] LABS: Basophils Percent Auto 0.2 % (0-2); Hematocrit 41.4 % (42.0-52.0); Hemoglobin 13.1 g/dl (14.0-18.0); Imm Gran Abs Auto 0.04 X10*3/uL (0.00-0.03); Imm Gran Pct Auto 0.6 % (0.0-0.4); Lymphocytes Absolute Auto 1.5 X10*3/uL (1.2-4.9); Lymphocytes Percent Auto 22.5 % (20-40); MANUAL DIFF FLAG NO; Mean Corpuscular HGB Conc 31.6 g/dl (31.0-36.0); Mean Corpuscular Hemoglobin 28.9 pg (27.0-33.0); Mean Corpuscular Volume 91.2 fL (80.0-98.0); Mean Platelet Volume 11.6 fL (9.4-12.4); Monocytes Absolute Auto 0.5 X10*3/uL (0.1-1.2); Neutrophils Absolute Auto 4.6 x10*3/uL (2.0-8.3); Neutrophils Percent Auto 68.7 % (45-73); Platelet Count 156 X10*3/uL (160-400); Red Blood Count 4.54 X10*6/uL (4.60-5.80); Red Cell Distribution Width 13.2 % (11.0-16.0); White Blood Count 6.6 X10*3/uL (4.8-10.8)
== END 2022-10-22 09:22 | disposition home or self-care (01) ==
LOC: HO.LABR 09:21
PROVIDERS: Visit Provider Clinical Nurse Specialist Psychiatric/Mental Health, Adult
DX: Z79.899 Other long term (current) drug therapy (principal)
CPT/HCPCS: 36415; 85025

== ENCOUNTER 2022-11-16 12:46 | Outpatient (REF) | payer MEDICARE, MEDICAID, SELFPAY ==
[2022-11-16 13:05] LABS: MANUAL DIFF FLAG NO
[2022-11-16 13:38] LABS: Basophils Percent Auto 0.1 % (0-2); Hematocrit 40.2 % (42.0-52.0); Hemoglobin 12.6 g/dl (14.0-18.0); Imm Gran Abs Auto 0.05 X10*3/uL (0.00-0.03); Imm Gran Pct Auto 0.6 % (0.0-0.4); Lymphocytes Absolute Auto 1.6 X10*3/uL (1.2-4.9); Lymphocytes Percent Auto 20.5 % (20-40); Mean Corpuscular HGB Conc 31.3 g/dl (31.0-36.0); Mean Corpuscular Hemoglobin 28.3 pg (27.0-33.0); Mean Corpuscular Volume 90.3 fL (80.0-98.0); Mean Platelet Volume 10.5 fL (9.4-12.4); Monocytes Absolute Auto 0.6 X10*3/uL (0.1-1.2); Monocytes Percent Auto 7.4 % (2-11); Neutrophils Absolute Auto 5.5 x10*3/uL (2.0-8.3); Neutrophils Percent Auto 71.4 % (45-73); Platelet Count 187 X10*3/uL (160-400); Red Blood Count 4.45 X10*6/uL (4.60-5.80); Red Cell Distribution Width 12.9 % (11.0-16.0); White Blood Count 7.7 X10*3/uL (4.8-10.8)
== END 2022-11-16 12:47 | disposition home or self-care (01) ==
LOC: HO.LABR 12:46
PROVIDERS: Visit Provider Clinical Nurse Specialist Psychiatric/Mental Health, Adult
DX: Z79.899 Other long term (current) drug therapy (principal)
CPT/HCPCS: 36415; 85025

== ENCOUNTER 2022-11-29 15:09 | Outpatient (AMB) | payer MEDICARE, MEDICAID, SELFPAY ==
--- NOTE | 2022-11-29 15:13 | MHC.OFFVIS ---
Intake Vital Signs 11/29/22 15:14 Height 5 ft 10 in Weight 213 lb BMI 30.6 BP 138/76 Blood Pressure Location Rt brachial Position Sitting Pulse 80 Pulse Source Pulse Oximeter Pulse Oximetry (%) 96 Oxygen Delivery Method Room Air Intake Visit Reasons: I-CONTRACT ASSISTANT: Sleep Apnea - Confirmed Intake Note: Patient presents for sleep apnea.Patient states this is for sleep apnea Allergies No Known Allergies [NKA] Allergy (Unknown, Verified 12/21/22 09:41) NONE HPI HPI Comments History of Present Illness Details 57 y/o male patient presents for new in-person visit to manage sleep apnea and nocturnal hypoxia. Patient did experience nocturnal hypoxia at times and was recommended to have outpatient sleep study.? The PSG sleep study result was mild degree of sleep apnea. The AHI was 7/hr and oxygen garcía was 84%. 3LPM oxygen used during the sleep study to maintain oxygenation. Pt reports he wakes up gasping frequently, and having non refreshing sleep. He wakes up tired and exhausted. He feels he breathe heavy, and can't sleep on his back, needs to sleep on his side. He always sleepy and tired. Sleep questionnaire: Have you ever been diagnosed with a sleep disorder? Yes, mild degree of sleep apnea and nocturnal hypoxemia. Have you ever had a sleep study in the past? Yes, PSG. Have you ever been treated for a sleep disorder? No. Do you take medications for a sleep disorder? Yes. Do you snore? Yes. Do you wake up gasping at night? Yes. Do you have episodes of apneas? Yes. If yes, are they witnessed? Yes. Do you have episodes of nocturnal chest pain or dyspnea? Yes. Do you have difficulty initiating sleep? No. Do you have difficulty maintaining sleep? Yes. Do you wake up tired? Yes. Do you have headaches upon awakening? No. Do you wake up with dry mouth or throat? Yes. Do you have GERD? Yes. Do you have nocturia? Yes. Do you have nocturnal leg cramps? No. Do you have symptoms of restless legs? No. Do you act out your dreams? No. Sleep hygiene questionnaire: What is your usual sleep routine? Usual bedtime is at 9 pm; Usual wake up time is at 6-7 am. Do you take naps? No. Is your sleep environment cool, dark, and quiet? No, needs light to sleep better. Do you exercise? Yes, stationary bike every day for 25 min. He lost about 60 lb. Do you take caffeine or other stimulants? Coffee in the morning and afternoon, and trying to cut it. Do you use electronics in bed? Watches TV. What is your work schedule? , Monday 12-2 pm. Hypersomnolence questionnaire: Do you have daytime tiredness or fatigue? Yes. Do you easily fall asleep when inactive? No. Have you ever had episodes of sudden weakness? No. Have you ever had episodes of sudden weakness associated with strong emotions? No. PFSH Medical History BPH (benign prostatic hyperplasia) Screening for colon cancer Screening for prostate cancer Essential (primary) hypertension Diabetes mellitus Surgical History History of colonoscopy History of tooth extraction History of root canal procedure Family History Mother Cancer Father Kidney agenesis Social History Household Members: None Housing: Apartment Do you presently have visiting nurse or other home services: Yes Alcohol intake: never Patient Tobacco Use Status: Never used Tobacco e-Cigarette/Vaping Use: Never Used Second Hand Smoke Exposure: No service: No Current occupational status: employed Sexual orientation: Don't Know Cognitive needs: No Hearing needs: No Vision needs: No Review of Systems Const All systems reviewed & are unremarkable except as noted in HPI and below ENT Reports Normal hearing present Neuro Reports Normal hearing present Physical Exam Vital Signs: Last Vital Signs Pulse 80 11/29/22 15:14 BP 138/76 11/29/22 15:14 Pulse Ox 96 11/29/22 15:14 Oxygen Delivery Method Room Air 11/29/22 15:14 BMI result Body Mass Index 30.6 Const General: cooperative and tired appearing Nutritional Appearance: obese Orientation/consciousness: patient oriented x3 Neck Neck: Yes full ROM and Yes supple Resp Effort & Inspection: normal respiratory effort and able to speak in complete sentences Neuro Other: Dyskinesia, mouth and leg involuntary movement. General: patient oriented x3 and gait normal Cranial nerves: Yes Bilaterally intact EOM present, Yes Normal facial strength present, Yes Midline tongue present, Yes Symmetric palate elevation present, Yes Normal hearing present, Yes Ability to bilaterally rotate head present and Yes Ability to bilaterally elevate shoulders present Cognition (Neuro): normal cognition Psych Appearance: grossly normal Speech and movement: Other speech and movement exam findings present (Psych) (dyskinesia, mouth and leg invoulntary movement. ) Affect: Other affect and mood findings present (flat effect but cooperative. ) Attitude: cooperative Assessment & Plan Assessment & Plan (1) Mild sleep apnea: Code(s): G47.30 - Sleep apnea, unspecified (2) Nocturnal hypoxia: Code(s): G47.34 - Idiopathic sleep related nonobstructive alveolar hypoventilation Plan Advised patient to undergo in lab CPAP titration study to find optimal CPAP pressure to treat sleep apnea and nocturnal hypoxemia. Advised patient to continue to sleep on his side. Sleep hygiene education provided, limit electronic screen use before bedtime. Wt reduction adivsed. Coding Level of Care Code New Pt Level 4 (06001) Diagnoses Mild sleep apnea G47.30 Nocturnal hypoxia G47.34
[2022-11-29 15:14] VITALS: BP 138/76; PULSE 80; O2SAT 96; BMI 30.6
== END 2022-11-29 15:39 | disposition home or self-care (01) ==
LOC: HO.HSMC 15:09
PROVIDERS: PCP Internal Medicine; Visit Provider Nurse Practitioner Family
DX: G47.30 Sleep apnea, unspecified (principal); G47.34 Idiopathic sleep related nonobstructive alveolar hypoventilation
CPT/HCPCS: 99204

== ENCOUNTER → 2022-11-29 15:09 | Outpatient (BNVA) | payer MEDICARE, MEDICAID, SELFPAY | PROVIDERS: PCP Internal Medicine; Visit Provider Nurse Practitioner Family ==

== ENCOUNTER 2022-12-19 13:08 | Outpatient (REF) | payer MEDICARE, MEDICAID, SELFPAY ==
[2022-12-19 13:53] LABS: MANUAL DIFF FLAG NO
[2022-12-19 14:15] LABS: Basophils Percent Auto 0.1 % (0-2); Hematocrit 40.7 % (42.0-52.0); Hemoglobin 12.4 g/dl (14.0-18.0); Imm Gran Abs Auto 0.11 X10*3/uL (0.00-0.03); Imm Gran Pct Auto 1.4 % (0.0-0.4); Lymphocytes Absolute Auto 1.5 X10*3/uL (1.2-4.9); Lymphocytes Percent Auto 19.2 % (20-40); Mean Corpuscular HGB Conc 30.5 g/dl (31.0-36.0); Mean Corpuscular Hemoglobin 28.1 pg (27.0-33.0); Mean Corpuscular Volume 92.1 fL (80.0-98.0); Mean Platelet Volume 10.4 fL (9.4-12.4); Monocytes Absolute Auto 0.6 X10*3/uL (0.1-1.2); Monocytes Percent Auto 7.7 % (2-11); Neutrophils Absolute Auto 5.5 x10*3/uL (2.0-8.3); Neutrophils Percent Auto 71.6 % (45-73); Platelet Count 165 X10*3/uL (160-400); Red Blood Count 4.42 X10*6/uL (4.60-5.80); Red Cell Distribution Width 13.3 % (11.0-16.0); White Blood Count 7.8 X10*3/uL (4.8-10.8)
== END 2022-12-19 13:09 | disposition home or self-care (01) ==
LOC: HO.LABR 13:08
PROVIDERS: PCP Internal Medicine; Visit Provider Clinical Nurse Specialist Psychiatric/Mental Health, Adult
DX: Z79.899 Other long term (current) drug therapy (principal)
CPT/HCPCS: 36415; 85025

== ENCOUNTER 2022-12-21 09:12 | Outpatient (AMB) | payer MEDICARE, MEDICAID, SELFPAY ==
[2022-12-21 09:27] VITALS: BP 114/72; PULSE 80; O2SAT 97; BMI 31.6
--- NOTE | 2022-12-21 09:27 | A.OFFVIS_ITS ---
Intake Vital Signs 12/21/22 09:27 Height 5 ft 10 in Weight 220 lb 0.8 oz BMI 31.6 BP 114/72 Blood Pressure Location Lt brachial Position Sitting Pulse 80 Pulse Source Pulse Oximeter Temp Source Skin Pulse Oximetry (%) 97 Oxygen Delivery Method Room Air Intake Visit Reasons: SAWV Allergies No Known Allergies [NKA] Allergy (Unknown, Verified 12/21/22 09:41) NONE Medication List - Last Reconciled 12/21/22 by [facility]ila blood sugar diagnostic (FreeStyle Lite Strips) 1 strip miscellaneous DAILY clozapine 300 mg (3 x 100 mg) PO BEDTIME docusate sodium 200 mg (2 x 100 mg) PO BID lancets (FreeStyle Lancets) TEST BLOOD SUGAR ONCE DAILY lithium carbonate 600 mg (2 x 300 mg) PO BEDTIME lorazepam 1 mg PO TID metformin ER 500 mg PO DAILY sennosides (Senna Lax) 17.2 mg (2 x 8.6 mg) PO BEDTIME sertraline 200 mg (2 x 100 mg) PO DAILY tamsulosin 0.4 mg PO DAILY HPI SAWV HPI Details Patient is a 57-year-old male who presents today for subsequent wellness visit. Patient of Dr. Smith. Today we discussed patient's need for prostate cancer screening. Up-to-date with immunizations. [place] of care was reviewed with the patient and he was provided with a screening schedule. End of life planning was discussed with the patient and he was provided with healthcare proxy and MOLST forms. [facility] Medical History BPH (benign prostatic hyperplasia) Screening for colon cancer Screening for prostate cancer Essential (primary) hypertension Diabetes mellitus Surgical History History of colonoscopy History of tooth extraction History of root canal procedure Family History Mother Cancer Father Kidney agenesis Social History Household Members: None Housing: Apartment Do you presently have visiting nurse or other home services: Yes Alcohol intake: never Patient Tobacco Use Status: Never used Tobacco e-Cigarette/Vaping Use: Never Used Second Hand Smoke Exposure: No service: No Current occupational status: employed Sexual orientation: Don't Know Cognitive needs: No Hearing needs: No Vision needs: No Questionnaire Medicare Wellness Checkup What [age] your age?: 65-69 (57) What gender do you identify with?: male During the past 4 weeks, how much have you been bothered by emotional problems such as feeling anxious, depressed, irritable, sad or downhearted, and blue?: slightly During the past 4 weeks, has your physical & emotional health limited your social activities with family, friends, neighbors, or groups?: slightly During the past 4 weeks, how much bodily pain have you generally had?: very mild pain During the past 4 weeks, was someone available to help you if you needed & wanted help?: yes, quite a bit During the past 4 weeks, what was the hardest physical activity you could do for at least 2 minutes?: light Can you get to places out of walking distance without help? (For eg., can you travel alone on buses, taxis or drive your car?): Yes Can you go shopping for groceries or clothes without someone's help?: Yes Can you prepare your own meals?: Yes Can you do your housework without help?: Yes Because of any health problems, do you need the help of another person with your personal care needs such as eating, bathing, dressing or getting around the house?: No During the past 4 weeks, how would you rate your health in general?: very good During the past 4 weeks how have things been going for you?: pretty well Are you having difficulties driving your car?: no Do you always fasten your seat belt when you are in a car?: yes, usually During past 4 weeks, have you been bothered by the following: never: Problems using the telephone?, seldom: Falling or dizzy when standing up and Sexual problems?, sometimes: Teeth or denture problems? and Tiredness or fatigue? and often: Trouble eating well? Have you fallen 2 or more times in the past year?: Yes Are you afraid of falling?: Yes Are you a smoker?: no During the past 4 weeks, how many drinks of wine, beer, or other alcoholic beverages did you have?: no alcohol at all Do you exercise for about 20 minutes 3 or more times a week?: yes, most of the time Have you been given information to help with the following?: yes: Hazards in your house that might hurt you? and yes: Keeping track of your medications? How often do you have trouble taking medicines the way you have been told to take them?: I always take medicine as prescribed How confident are you that you can control & manage most of your health problems?: very confident What is your race?: White Mini Mental State Exam (MMSE) Orientation What is the (year) (season) (date) (day) (month)?: year, season, date, day and month Score Score: 5 Activity of Daily Living Bathing - sponge bath, tub bath or shower: receives no assistance (gets in/out by self, if usual bathing means Dressing - getting clothes from closets & drawers, including inner/outer garments & fasteners.: gets clothes & gets completely dressed without help Toileting - going to the 'toilet room' for urine/bowel elimination & cleaning self/arranging clothes: goes to toilet room, cleans self, arranges clothes without help Transfer: moves in & out of bed and chair without help (may use support object) Continence: controls urination/bowel movements completely by self Feeding: feeds self without help Total Score: 0 Information obtained from: patient Using telephone: independent Traveling: independent Shopping: independent Preparing meals: independent Housework: independent Taking medicine: needs assistance Managing money: independent PHQ-9 Over the last 2 weeks, how often have you been bothered by any of the following problems? 1. Little interest or pleasure in doing things: several days 2. Feeling down, depressed, or hopeless: several days 3. Trouble falling or staying asleep, or sleeping too much: not at all 4. Feeling tired or having little energy: not at all 5. Poor appetite or overeating: not at all 6. Feeling bad about yourself - or that you are a failure or have let yourself or your family down: not at all 7. Trouble concentrating on things, such as reading the newspaper or watching television: not at all 8. Moving or speaking so slowly that other people could have noticed. Or the opposite - being so fidgety or restless that you have been moving around a lot more than usual: not at all 9. Thoughts that you would be better off or of hurting yourself in some way: not at all Total score: 2 Depression Screening Interpretation: Negative 67900 - PHQ-9 Billing: Yes Source: Developed by Drs. Jacob Bates, Farrah Scott, Jose Martin Powell and colleagues, with an educational brigid from [employer]. Physical Exam Vital Signs: Last Vital Signs Pulse 80 12/21/22 09:27 BP 114/72 12/21/22 09:27 Pulse Ox 97 12/21/22 09:27 Oxygen Delivery Method Room Air 12/21/22 09:27 BMI result Body Mass Index 31.6 Const General: cooperative and no acute distress Orientation/consciousness: patient oriented x3 HEENT Other: Whisper test: pass Neuro Other: Balance: Normal Get up and walk: able to Romberg: negative Tandem gait: unable to General: patient oriented x3 Assessment & Plan Assessment & Plan (1) Benign prostate hyperplasia: Code(s): N40.0 - Benign prostatic hyperplasia without lower urinary tract symptoms Qualifiers: Lower urinary tract symptom presence: unspecified whether lower urinary tract symptoms present Qualified Code(s): N40.0 - Benign prostatic hyperplasia without lower urinary tract symptoms Plan: Tamsulosin 0.4 mg daily (2) Adult general medical exam: Code(s): Z00.00 - Encounter for general adult medical examination without abnormal findings (3) Essential hypertension: Code(s): I10 - Essential (primary) hypertension Plan: Stable Low-sodium diet (4) Screening for prostate cancer: Code(s): Z12.5 - Encounter for screening for malignant neoplasm of prostate (5) Diabetes mellitus: Code(s): E11.9 - Type 2 diabetes mellitus without complications Qualifiers: Diabetes mellitus type: type 2 Diabetes mellitus intermodal customer service insulin use: without intermodal customer service use Diabetes mellitus complication status: with hyperglycemia Qualified Code(s): E11.65 - Type 2 diabetes mellitus with hyperglycemia Plan: A1c 5.1 09/2022 Low-carbohydrate diet Metformin 500 mg daily (6) Schizophrenia, unspecified: Code(s): F20.9 - Schizophrenia, unspecified Plan: Continue to follow-up with therapist and psychiatrist (7) Mild sleep apnea: Code(s): G47.30 - Sleep apnea, unspecified Plan: Continue to follow-up with Dr. Roldan Orders: Orders Prostate Specific Antigen Today Z12.5 - Encounter for screening for malignant neoplasm of prostate Quality Reporting (2019) Depression/Bipolar (159/160/161/177) PHQ-9: Total score: 2 Coding Level of Care Code Medicare Subsequent (G0439) Diagnoses Benign prostatic hyperplasia, unspecified whether lower urinary tract symptoms present N40.0 Lower urinary tract symptom presence: unspecified whether lower urinary tract symptoms present Adult general medical exam Z00.00 Essential hypertension I10 Screening for prostate cancer Z12.5 Type 2 diabetes mellitus with hyperglycemia, without long-term current use of insulin E11.65 Diabetes mellitus type: type 2 Diabetes mellitus intermediate insulin use: without intermediate use Diabetes mellitus complication status: with hyperglycemia Paranoid schizophrenia F20.9 Mild sleep apnea G47.30 CPT Codes Advance Care Planning - Time spent: 1-15 minutes, not on file ([id number]) Advance Care Planning Date of discussion: 12/21/22 Who was present: pt and cyber legal advisor Forms completed: None Time spent: 1-15 minutes, not on file Actual minutes spent: 3 Did not discuss due to Cultural/Spiritual beliefs: No
== END 2022-12-21 09:54 | disposition home or self-care (01) ==
PROVIDERS: PCP Internal Medicine; Visit Provider Nurse Practitioner Family
DX: Z00.00 Encounter for general adult medical examination without abnormal findings (principal); I10 Essential (primary) hypertension; E11.65 Type 2 diabetes mellitus with hyperglycemia; F20.9 Schizophrenia, unspecified; Z12.5 Encounter for screening for malignant neoplasm of prostate; N40.0 Benign prostatic hyperplasia without lower urinary tract symptoms; G47.30 Sleep apnea, unspecified
CPT/HCPCS: 1124F; G0439

== ENCOUNTER 2023-01-03 16:40 | Inpatient (IN) | payer MEDICARE, MEDICAID, SELFPAY ==
--- NOTE | ~2023-01-03 | US_ITS ---
EXAMINATION: US VENOUS WITH DOPPLER UPPER EXTREMITY, RIGHT CLINICAL INFORMATION: Right hand swelling COMPARISON: None available. TECHNIQUE: Ultrasound of the upper extremity is performed using compression sonography and color and pulse Doppler flow with assessment of augmentation of flow. There is also imaging and Doppler assessment of the jugular and subclavian veins. Spectral analysis with color-flow imaging is performed. FINDINGS: Respiratory variation, normal compression, and augmented flow are noted throughout the upper extremity including the axillary, brachial, cubital, and radial and ulnar veins. There is normal flow in the internal jugular and subclavian veins. There is no visible deep or superficial thrombophlebitis. If the patient's symptoms progress, a followup ultrasound in 5 -7 days might be of value to exclude proximal propagation from a nonvisualized distal arm vein. US/US venous duplex UE RT IMPRESSION: No DVT demonstrated in the right upper extremity
--- NOTE | 2023-01-03 16:55 | ED.PSYCH ---
HPI - Psych General Stated Complaint: Crisis Time Seen by Provider: 01/03/23 16:44 Source: EMS Mode of arrival: EMS Limitations: altered mental status History of Present Illness HPI Narrative: patient comes to the emergency room via EMS from [facility]. Patient is awake, alert but not speaking. Patient has history of schizoaffective disorder, depressive type with catatonia. According to reports from [facility], patient is currently compliant with his medications due to having a VNA coming to his house twice a day. Patient was assessed by [facility] at the request of his CS worker, seems the patient is decompensated and catatonic state, patient makes no effort pain to engage in conversation. According to the report, about a week ago, patient was still able to drive, but to work and meet with [facility]. Patient was able to dress himself but is struggling with ADLs Related Data Previous Rx's Medication Instructions Recorded clozapine 100 mg tablet 300 mg (3 x 100 mg) PO BEDTIME #45 07/19/22 tabs lithium carbonate 300 mg capsule 600 mg (2 x 300 mg) PO BEDTIME #60 07/19/22 caps lorazepam 1 mg tablet 1 mg PO TID #90 tabs 07/19/22 sertraline 100 mg tablet 200 mg (2 x 100 mg) PO DAILY #60 07/19/22 tabs sennosides 8.6 mg tablet (Senna 17.2 mg (2 x 8.6 mg) PO BEDTIME 09/05/22 Lax) #90 tabs blood sugar diagnostic (FreeStyle 1 strip miscellaneous DAILY #100 10/05/22 Lite Strips) strips lancets 28 gauge (FreeStyle #100 ea 10/05/22 Lancets) tamsulosin 0.4 mg capsule 0.4 mg PO DAILY #90 caps 11/03/22 docusate sodium 100 mg capsule 200 mg (2 x 100 mg) PO BID #120 12/18/22 caps metformin 500 mg tablet,extended 500 mg PO DAILY #30 tabs 12/26/22 release 24 hr Allergies Allergy/AdvReac Type Severity Reaction Status Date / Time No Known Allergies [NKA] Allergy Unknown NONE Verified 12/21/22 09:41 Review of Systems Review of Systems: Yes Unobtainable due to mental condition PMFSH Past Medical History Medical History Schizophrenia, catatonic BPH (benign prostatic hyperplasia) Screening for colon cancer Screening for prostate cancer Essential (primary) hypertension Diabetes mellitus Surgical History History of colonoscopy History of tooth extraction History of root canal procedure Family History Family History Mother Cancer Father Kidney agenesis Social History Social History Household Members: None Housing: Apartment Do you presently have visiting nurse or other home services: Yes Alcohol intake: never Patient Tobacco Use Status: Never used Tobacco e-Cigarette/Vaping Use: Never Used Second Hand Smoke Exposure: No service: No Current occupational status: employed Sexual orientation: Don't Know Cognitive needs: No Hearing needs: No Vision needs: No Physical Exam Const: Other: ?Appearance: Alert.? No acute distress.? ?able to follow commands but not answering any questions Eyes: Pupils equal, round and reactive to light.? ENT: Pharynx normal.? Neck: Normal inspection.? Neck supple. No lymph nodes noted. No crepitus CVS: Normal heart rate and rhythm.? Pulses normal. Normal S1 and S2 Respiratory: No respiratory distress.? Breath sounds normal. No Wheezing. No rales? Abdomen: Soft and nontender. No rigidity. No distention.? Skin: Skin warm and dry.? Normal skin color.? Normal skin turgor.? Extremities: No lower extremity edema. No Lacerations. No Rash Neuro: Oriented X 3.? No motor deficit.? No sensory deficit. Moving all extremities. No slurred speech. CN 2 through 12 grossly intact Psych: calm, cooperative,? seems spaced out, distracted, not answering questions Course Course Course Narrative: - all of patient' labs pending - care team consult pending - patient will likely be admitted, patient seems to be significantly decompensated according to [facility] notes - physician observation started at 17:00 Medical Decision Making Differential Diagnosis Differential Diagnoses: The differential diagnosis associated with the presentation includes ( schizophrenia, schizoaffective disorder, catatonia) Admission/Observation Consideration of admission/observation: Escalation of care including admission/observation considered ( patient will likely be admitted. Patient has already been seen by [facility], likely to be admitted) Discharge Plan Discharge Clinical Impression: Schizophrenia, catatonic Patient Disposition: Still a Patient Prescriptions: No Action sennosides [Senna Lax] 8.6 mg tablet 17.2 mg PO BEDTIME Qty: 90 3RF FreeStyle Lite Strips Strip 1 strip miscellaneous DAILY Qty: 100 5RF (DME) lancets [FreeStyle Lancets] 28 gauge misc See Rx Instructions .ROUTE .COMPLEX Qty: 100 0RF Dose Instruction: TEST BLOOD SUGAR ONCE DAILY Rx Instructions: TEST BLOOD SUGAR ONCE DAILY tamsulosin 0.4 mg capsule 0.4 mg PO DAILY Qty: 90 0RF docusate sodium 100 mg capsule 200 mg PO BID Qty: 120 3RF metformin 500 mg tablet extended release 24 hr 500 mg PO DAILY Qty: 30 1RF clozapine 100 mg Tablet 300 mg PO BEDTIME Qty: 45 0RF sertraline 100 mg Tablet 200 mg PO DAILY Qty: 60 0RF lithium carbonate 300 mg Capsule 600 mg PO BEDTIME Qty: 60 0RF lorazepam 1 mg Tablet 1 mg PO TID Qty: 90 0RF
[2023-01-03 17:03] VITALS: BP 148/80; PULSE 84; RESP 16; TEMP 37; O2SAT 100; BMI 28.0
[2023-01-03 18:05] LABS: Alanine Aminotransferase 6 U/L (0-40); Albumin Level 4.2 g/dL (3.5-5.0); Alkaline Phosphatase 59 U/L (39-117); Anion Gap 14 (12-20); Aspartate Amino Transferase 12 U/L (5-37); Bilirubin Direct 0.2 mg/dL (0.0-0.5); Bilirubin Total 0.5 mg/dL (0.0-1.0); Blood Urea Nitrogen 19 mg/dL (9-16); Calcium 9.5 mg/dL (8.4-10.2); Carbon Dioxide 25 mmol/L (22-29); Chloride 105 mmol/L (96-108); Creatinine Clr Calc Pharmacy 65.9; Estimated Glomerular Filt Rate 54; Glucose Random 87 mg/dL (60-115); Magnesium 2.1 mg/dL (1.6-2.6); Potassium 4.1 mmol/L (3.3-5.1); Sodium 140 mmol/L (135-145); Total Protein 7.2 g/dL (6.5-8.0)
--- NOTE | 2023-01-03 19:10 | PC.NURSE ---
pt triaged by FAITH Castillo. pt appears catatonic, hx of schizophrenia with SI. have to pull information from pt. delayed responses. regular diet ordered. pt able to feed himself. sitter at bedside for pt safety. rr even/unlabored. resting quietly on stetcher in no apparent distress. plan of care ongoing.
[2023-01-03 20:00] VITALS: BP 122/66; PULSE 75; RESP 18; TEMP 37.1; O2SAT 95
--- NOTE | 2023-01-03 20:07 | PC.NURSE ---
Assumed care at 1900, introduced self to patient, updated vital signs, unable to obtain history, pt in catatonic state, pt unable to answer questions. Provided with urinal, sitter in place, call contreras in place. Plan of care on going.
[2023-01-03 23:55] VITALS: BP 114/62; PULSE 63; RESP 17; TEMP 36.9; O2SAT 95
--- NOTE | 2023-01-04 01:38 | PC.NURSE ---
per CARE team pt seen in the community by [facility], patient to go up to [facility] however they will not accept pt at this time until the morning. pt resting comfortably on stretcher, respirations even and unlabored, pt continues to be in a catatonic state not answering questions at this time. call contreras within reach, sitter in place, plan of care ongoing.
[2023-01-04 06:52] VITALS: RESP 17
[2023-01-04 06:57] VITALS: BP 145/81; PULSE 73; RESP 17; TEMP 37.3; O2SAT 95
--- NOTE | 2023-01-04 08:59 | PHA.MEDREC ---
Pharmacy Consult ? Medication Reconciliation Pharmacy has completed the medication reconciliation.Med rec complete using list from [facility]. Pt has VNA who gives meds at home BID. Pt last dose of all meds at home was 10/10 for morning dose before sent to [facility] by [facility] in afternoon.
[2023-01-04 10:40] VITALS: BP 126/80; PULSE 78; RESP 16; TEMP 36.8; O2SAT 94
--- NOTE | 2023-01-04 11:51 | PC.NURSE ---
at 1040 am pt ate one bowl of rice checks with 240cc milk. He was able to eat independently without any choking after rn prepared the cereal and put the spoon in his hand. He was able to void in the toliet and manage his own clothing at 1110 - voided a very large amount of urine. There was notable hesitancy prior to start of void and, toward the end of the void, multiple bursts. Pt has a history of being on flomax and ddavp.
--- NOTE | 2023-01-04 14:53 | P.HPPS_ITS ---
HPI Date of Service: 01/04/23 Chief Complaint: Psychosis HPI Narrative: per [facility] crisis eval, pt was noted to have changed from his baseline level of function in the negative and was referred for hospitalization as a result. he has stopped going to work and has become very psychomotorically slowed. [facility] team noted his apartment smelled of urine and pt was slowed and appeared distracted, unable to effectively engage with the team. he was referref for hospitalization and was admitted voluntarily. on interview by psych MD in the unit, pt was quite delayed in his responses, had a resting tremor of his jaw and RUE, and what responses were offered were extremely terse. he was unable to describe his mood and denied SI, endorsed AVH. Past Psychiatric History: Inpatient: multiple in the past. h/o ECT for catatonia. OP: [facility] Past medication trials: clozaril, ativan, sertraline, olanzapine. Medical Evaluation Reviewed: Yes [facility] Medical History Schizophrenia, catatonic BPH (benign prostatic hyperplasia) Screening for colon cancer Screening for prostate cancer Essential (primary) hypertension Diabetes mellitus Surgical History History of colonoscopy History of tooth extraction History of root canal procedure Family History: unknown Social History: lives independently, works, drives. apartment in [place]. Substance History: none reported Trauma History: unknown Diagnostics Vital Signs (24Hr): Vital Signs - 24 hr 01/03/23 17:03 01/03/23 20:00 01/03/23 23:55 Temperature 98.6 F 98.7 F 98.4 F Pulse Rate 84 75 63 Respiratory Rate 16 18 17 Blood Pressure 148/80 H 122/66 114/62 Pulse Oximetry 100 95 95 Oxygen Delivery Method Room Air Room Air Room Air 01/04/23 06:52 01/04/23 06:57 Temperature 99.2 F Pulse Rate 73 Respiratory Rate 17 17 Blood Pressure 145/81 H Pulse Oximetry 95 Oxygen Delivery Method Room Air BMI result Body Mass Index 28.0 Labs 01/03/23 17:40 01/03/23 17:40 Labs: Laboratory Results - last 48 hr 01/03/23 01/04/23 01/04/23 17:40 00:55 10:38 WBC 7.8 RBC 4.42 L Hgb 12.7 L Hct 40.1 L MCV 90.7 MCH 28.7 MCHC 31.7 RDW 13.2 Plt Count 166 MPV 11.0 Immature Gran % (Auto) 0.5 H Neut % (Auto) 71.4 Lymph % (Auto) 20.7 [place] % (Auto) 7.4 Eos % (Auto) 0.0 Baso % (Auto) 0.0 Lymph # (Auto) 1.6 [place] # (Auto) 0.6 Eos # (Auto) 0.0 Baso # (Auto) 0.0 Abs Immat Gran (auto) 0.04 H Absolute Neuts (auto) 5.6 Absolute Nucleated RBC 0.000 Nucleated RBC % (auto) 0.0 Sodium 140 Potassium 4.1 Chloride 105 Carbon Dioxide 25 Anion Gap 14 BUN 19 H Creatinine 1.35 Estim Creat Clear Calc 65.9 Estimated GFR 54 POC Glucose 108 Random Glucose 87 Calcium 9.5 D Magnesium 2.1 Total Bilirubin 0.5 Direct Bilirubin 0.2 AST 12 ALT 6 Alkaline Phosphatase 59 Total Protein 7.2 Albumin 4.2 Urine Color Yellow Urine Appearance Clear Urine pH 6.5 Ur Specific [place] 1.015 Urine Protein Negative Urine Glucose (UA) Negative Urine Ketones Negative Urine Blood Negative Urine Nitrite Negative Ur Leukocyte Esterase Negative Urine Opiates Screen Not Detected Urine Fentanyl Screen Not Detected Ur Barbiturates Screen Not Detected Ur Phencyclidine Scrn Not Detected Ur Amphetamines Screen Not Detected U Benzodiazepines Scrn Not Detected [place] 0.72 Urine Cocaine Screen Not Detected U Marijuana (THC) Screen Not Detected Ethyl Alcohol < 10 COVID-19 ([facility]) Negative COVID-19 Clin Com See Note Meds/Allergies Meds Home Medications Medication Instructions Recorded Confirmed Type lancets 28 gauge (FreeStyle 01/04/23 01/04/23 History Lancets) tamsulosin 0.4 mg capsule 0.4 mg PO DAILY 01/04/23 01/04/23 History Allergies Allergies Allergy/AdvReac Type Severity Reaction Status Date / Time No Known Allergies [NKA] Allergy Unknown NONE Verified 12/21/22 09:41 Mental Status Exam Mental Status Exam Narrative: Appearance: wearing hospital gown, poor eye contact, in NAD Behavior: cooperative Psychomotor: no agitation or retardation noted Speech: soft, muffled, terse, non-spontaneous TP: linear TC: no delusions or paranoia expressed Affect: constricted, hyper-intense SI: none HI: none VH/AH: + Insight/judgment: fair x 2. Memory/cog: alert, oriented x 3. Assessment & Plan Assessment & Plan (1) Schizoaffective disorder, depressive type: Status: Acute Code(s): F25.1 - Schizoaffective disorder, depressive type Plan continue outpt medications regimen for now. recent onset of mvmts which appear c/w EPS; unclear why movements have begun. trend Sx. T/C ECT if indicated, as was done at most recent admission on M3. Patient educated on: medication risk/benefits and ECT Reason for continued inpatient stay Substantial Risk for: inability to function Statement Statement: I have reviewed the history and physical and performed a pertinent examination on my patient. No changes have occurred unless specified. If the History and Physical was not performed prior to admission, the Hospitalist's service will be consulted for completing the admission physical. Time Spent With Patient Time: Total time managing care of this patient today _55___ minutes.
--- NOTE | 2023-01-04 15:03 | PC.NURSE ---
Pt is unable to remember or communicate if he had a flu shot this year due to decompensated mental state. His visiting nurse and his pharmacy were unable to tell me if he had his flu shot this year. Until we are able to determine if he has received flu shot this season we will hold off on flu shot.
--- NOTE | 2023-01-04 16:43 | PC.NURSE ---
Benjamin was admitted to M3 at 1030 from [facility] on CV for treatment of schizophrenia with catatonia? Father alerted outreach team of pt's recent decompensation and they brought him for crisis evaluation. As recently as last week pt was noted at baseline: driving, working and going to the gym. Per visiting nurse she noted he was more withdrawn starting during Monday am visit. She says he had not missed any visits and has been compliant with all rxd meds. De[place] level is .72. Per outreach RN pt stopped using his seasonal affective lamp last week. Benjamin had difficulty engaging in the admission assessment. He appeared to be attending to questions but his answers were delayed or nonexistent. Much of the assessment was based on crisis eval and collateral from outpt providers. He is flat and withdrawn but did respond verbally briefly and intermittently. He appears internally preoccupied with significant thought blocking. Benjamin did not eat in ED. Here on the unit he has eaten meals with minimal prompting - staff hands him utensils and he eats. Unfortunately he has a pronounced tremor in right upper and lower extremities which complicate his eating. Weighted utensils were obtained from OT for trial at dinner. Pt was accompanied during meals here today and no choking episodes were noted ( he had difficulty with choking last admission) He was unable to follow instructions for standing scale so has not yet been weighed. He was steady on his feet on arrival. Benjamin has been laying in bed with his eyes open this shift. No napping noted. No history or current issues with substance abuse. In ED pt was noted to have urinary issues : one episode of urinary incontinence, then last night he was retaining with bladder scan [address]. This is not baseline. Per pharmacy outpt MD declined to refill flomax so pt has not had the med for approximately 3 weeks. With prompting to use the bathroom he voided in toilet lg amount at 1110 am. Other medical issues include NIDDM and HTN. RBS today 108 on arrival to the unit and VSS. Benjamin is on q 15 minute Safety Checks
[2023-01-04 20:00] VITALS: BP 134/67; PULSE 84; RESP 16; TEMP 36.8; O2SAT 95
[2023-01-04] MEDS: Docusate Sodium 100 MG CAPSULE 200 MG PO (21:43)
[2023-01-04] MEDS: cloZAPine 100 MG TABLET 300 MG PO (21:43)
[2023-01-04] MEDS: Lithium Carbonate 300 MG CAPSULE 600 MG PO (21:44)
[2023-01-04] MEDS: Sennosides 8.6 MG TABLET 17.2 MG PO (21:44)
[2023-01-04] MEDS: LORazepam 1 MG TABLET PO (21:45)
--- NOTE | 2023-01-05 06:56 | PC.NURSE ---
inability to void-brought to the toilet this AM. unable to pass urine. no c/o discomfort. dr. knight notified via tiger text. will review concerns at shift change.
[2023-01-05 07:00] VITALS: BMI 30.1
[2023-01-05 08:08] VITALS: BP 120/60; PULSE 81; RESP 20; TEMP 36.1; O2SAT 93
[2023-01-05] MEDS: LORazepam 1 MG TABLET PO ×3 (08:21→22:44)
[2023-01-05] MEDS: metFORMIN HCl ER 500 MG TAB.ER.24H PO (08:21)
[2023-01-05] MEDS: Docusate Sodium 100 MG CAPSULE 200 MG PO (08:21)
[2023-01-05] MEDS: Tamsulosin HCL 0.4 MG CAPSULE PO (08:21)
[2023-01-05] MEDS: Sertraline HCL 100 MG TABLET 200 MG PO (08:21)
[2023-01-05 08:28] LABS: Glucose, Whole Blood 107 mg/dL (60-115)
[2023-01-05 09:23] LABS: Lithium 0.85 mmol/L (0.60-1.20)
--- NOTE | 2023-01-05 09:46 | PC.NURSE ---
Patient voided a large amount of urine this am. Pt experiencing hesitancy with urination, denies discomfort, will continue to monitor.
[2023-01-05] MEDS: Magnesium Hydrox/Alum Hydrox 30 ML ORAL.SUSP PO (11:31)
--- NOTE | 2023-01-05 13:17 | P.PNPSI_ITS ---
Subjective Subjective Date of Service: 01/05/23 Reason For Visit: Psychosis Subjective Notes: Conditional Voluntary Interim History: Pt with significant delayed in response. Pt reports hearing voices and seeing things. Takes time to elaborate. He denies SI/HI. He reports constipation. question of urinary retention- bladder scan has to be post void. Review of Systems Review of Systems Yes Unobtainable due to mental condition Mental Status Exam Mental Status Exam Narrative: Appearance: wearing hospital gown, poor eye contact, in NAD Behavior: cooperative Psychomotor: no agitation or retardation noted Speech: soft, muffled, terse, non-spontaneous TP: linear TC: no delusions or paranoia expressed Affect: constricted, hyper-intense SI: none HI: none VH/AH: + Insight/judgment: fair x 2. Memory/cog: alert, oriented x 3. Diagnostics Vital Signs (24Hr): Vital Signs - 24 hr 01/04/23 20:00 01/05/23 08:08 Temperature 98.2 F 97.0 F Pulse Rate 84 81 Respiratory Rate 16 20 Blood Pressure 134/67 120/60 Pulse Oximetry 95 93 Oxygen Delivery Method Room Air Room Air BMI result Body Mass Index 28.0 Labs 01/03/23 17:40 01/05/23 13:38 Labs: Laboratory Results - last 48 hr 01/03/23 01/04/23 01/04/23 17:40 00:55 10:38 WBC 7.8 RBC 4.42 L Hgb 12.7 L Hct 40.1 L MCV 90.7 MCH 28.7 MCHC 31.7 RDW 13.2 Plt Count 166 MPV 11.0 Immature Gran % (Auto) 0.5 H Neut % (Auto) 71.4 Lymph % (Auto) 20.7 [place] % (Auto) 7.4 Eos % (Auto) 0.0 Baso % (Auto) 0.0 Lymph # (Auto) 1.6 [place] # (Auto) 0.6 Eos # (Auto) 0.0 Baso # (Auto) 0.0 Abs Immat Gran (auto) 0.04 H Absolute Neuts (auto) 5.6 Absolute Nucleated RBC 0.000 Nucleated RBC % (auto) 0.0 Sodium 140 Potassium 4.1 Chloride 105 Carbon Dioxide 25 Anion Gap 14 BUN 19 H Creatinine 1.35 Estim Creat Clear Calc 65.9 Estimated GFR 54 POC Glucose 108 Random Glucose 87 Calcium 9.5 D Magnesium 2.1 Total Bilirubin 0.5 Direct Bilirubin 0.2 AST 12 ALT 6 Alkaline Phosphatase 59 Total Protein 7.2 Albumin 4.2 Urine Color Yellow Urine Appearance Clear Urine pH 6.5 Ur Specific [place] 1.015 Urine Protein Negative Urine Glucose (UA) Negative Urine Ketones Negative Urine Blood Negative Urine Nitrite Negative Ur Leukocyte Esterase Negative Urine Opiates Screen Not Detected Urine Fentanyl Screen Not Detected Ur Barbiturates Screen Not Detected Ur Phencyclidine Scrn Not Detected Ur Amphetamines Screen Not Detected U Benzodiazepines Scrn Not Detected [place] 0.72 Urine Cocaine Screen Not Detected U Marijuana (THC) Screen Not Detected Ethyl Alcohol < 10 COVID-19 ([facility]) Negative COVID-19 Clin Com See Note 01/05/23 01/05/23 08:23 08:36 WBC RBC Hgb Hct MCV MCH MCHC RDW Plt Count MPV Immature Gran % (Auto) Neut % (Auto) Lymph % (Auto) [place] % (Auto) Eos % (Auto) Baso % (Auto) Lymph # (Auto) [place] # (Auto) Eos # (Auto) Baso # (Auto) Abs Immat Gran (auto) Absolute Neuts (auto) Absolute Nucleated RBC Nucleated RBC % (auto) Sodium Potassium Chloride Carbon Dioxide Anion Gap BUN Creatinine Estim Creat Clear Calc Estimated GFR POC Glucose 107 Random Glucose Calcium Magnesium Total Bilirubin Direct Bilirubin AST ALT Alkaline Phosphatase Total Protein Albumin Urine Color Urine Appearance Urine pH Ur Specific [place] Urine Protein Urine Glucose (UA) Urine Ketones Urine Blood Urine Nitrite Ur Leukocyte Esterase Urine Opiates Screen Urine Fentanyl Screen Ur Barbiturates Screen Ur Phencyclidine Scrn Ur Amphetamines Screen U Benzodiazepines Scrn [place] 0.85 Urine Cocaine Screen U Marijuana (THC) Screen Ethyl Alcohol COVID-19 ([facility]) COVID-19 Clin Com Medications Medications Current Medications Acetaminophen (Acetaminophen 325 Mg Tablet) 650 mg PO Q6H PRN PRN Reason: Headache/Pain Mild Scale (1-3) Al Hydroxide/Mg Hydroxide (Magnesium Hydrox/Alum Hydrox 30 Ml Oral.Susp) 30 ml PO Q6H PRN PRN Reason: Heartburn/Nausea Last Admin: 01/05/23 11:31 Dose: 30 ml Clozapine (Clozapine 100 Mg Tablet) 300 mg PO BEDTIME [facility] Last Admin: 01/04/23 21:43 Dose: 300 mg Hydroxyzine HCl (Hydroxyzine Hcl 25 Mg Tablet) 25 mg PO Q6H PRN PRN Reason: Anxiety [place] Carbonate ([place] Carbonate 300 Mg Capsule) 600 mg PO BEDTIME [facility] Last Admin: 01/04/23 21:44 Dose: 600 mg Lorazepam (Lorazepam 1 Mg Tablet) 1 mg PO TID [facility] Last Admin: 01/05/23 08:21 Dose: 1 mg Magnesium Hydroxide (Milk Of Magnesia 30 Ml Oral.Susp) 30 ml PO DAILY PRN PRN Reason: Constipation Metformin HCl (Metformin Hcl Er 500 Mg Tab.Er.24h) 500 mg PO DAILY [facility] Last Admin: 01/05/23 08:21 Dose: 500 mg Nicotine Polacrilex (Nicotine Polacrilex 2 Mg Gum) 4 mg BUCCAL Q2H PRN PRN Reason: Nicotine Cravings Senna (Sennosides 8.6 Mg Tablet) 17.2 mg PO BEDTIME [facility] Last Admin: 01/04/23 21:44 Dose: 17.2 mg Senna/Docusate Sodium (Sennosides/Docusate Sodium Tablet) 2 tab PO BID [facility] Sertraline HCl (Sertraline Hcl 100 Mg Tablet) 200 mg PO DAILY [facility] Last Admin: 01/05/23 08:21 Dose: 200 mg Tamsulosin HCl (Tamsulosin Hcl 0.4 Mg Capsule) 0.4 mg PO DAILY [facility] Last Admin: 01/05/23 08:21 Dose: 0.4 mg Trazodone HCl (Trazodone Hcl 50 Mg Tablet) 50 mg PO BEDTIME MRX1 PRN PRN Reason: Insomnia Allergies Allergies Allergy/AdvReac Type Severity Reaction Status Date / Time No Known Allergies [NKA] Allergy Unknown NONE Verified 12/21/22 09:41 Assessment & Plan Assessment & Plan (1) Schizoaffective disorder, depressive type: Status: Acute Code(s): F25.1 - Schizoaffective disorder, depressive type Plan continue outpt medications regimen for now. recent onset of mvmts which appear c/w EPS; unclear why movements have begun. trend Sx. T/C ECT if indicated, as was done at most recent admission on M3. PLAN 01/05- pt reports hearing voices, taking clozaril. will check clozaril level. decrease sertraline as it worsens psychosis. order bladder scan POST VOID, may need straigh cath if PVR>300ml. sennakot BID. Pt appears with chest congestion, excessive secretions. Reason for continued inpatient stay Substantial Risk for: inability to function Time Spent With Patient Time: Total time managing care of this patient today ____ minutes.
[2023-01-05 14:04] LABS: Alanine Aminotransferase < 5 U/L (0-40); Alkaline Phosphatase 57 U/L (39-117); Anion Gap 12 (12-20); Aspartate Amino Transferase 9 U/L (5-37); Bilirubin Total 0.5 mg/dL (0.0-1.0); Blood Urea Nitrogen 24 mg/dL (9-16); Calcium 9.5 mg/dL (8.4-10.2); Carbon Dioxide 28 mmol/L (22-29); Chloride 105 mmol/L (96-108); Estimated Glomerular Filt Rate 52; Glucose Random 120 mg/dL (60-115); Sodium 141 mmol/L (135-145); Total Protein 6.8 g/dL (6.5-8.0)
[2023-01-05 20:23] VITALS: BP 130/65; PULSE 64; RESP 16; TEMP 36.7; O2SAT 95
[2023-01-05] MEDS: Sennosides/Docusate Sodium TABLET 2 TAB PO (22:44)
[2023-01-05] MEDS: Lithium Carbonate 300 MG CAPSULE 600 MG PO (22:44)
[2023-01-05] MEDS: cloZAPine 100 MG TABLET 300 MG PO (22:44)
[2023-01-06 07:48] LABS: Glucose, Whole Blood 112 mg/dL (60-115)
[2023-01-06 08:00] VITALS: BP 110/59; PULSE 74; RESP 20; TEMP 36.2; O2SAT 94
[2023-01-06] MEDS: metFORMIN HCl ER 500 MG TAB.ER.24H PO (08:00)
[2023-01-06] MEDS: Tamsulosin HCL 0.4 MG CAPSULE PO (08:01)
[2023-01-06] MEDS: Sertraline HCL 100 MG TABLET PO (08:01)
[2023-01-06] MEDS: LORazepam 1 MG TABLET PO ×3 (08:01→22:15)
[2023-01-06] MEDS: Sennosides/Docusate Sodium TABLET 2 TAB PO ×2 (08:01→22:15)
--- NOTE | 2023-01-06 14:43 | HO.PSYCHPN ---
Subjective Subjective Date of Service: 01/06/23 Reason For Visit: Psychosis Interim History: no IVM noted today. remains otherwise as per two days ago. states he is feeling a little different now than he was when admitted, can't say in what way. states he would llike to hold off on ECT for now and just take medications. per staff, slowed thoughts. anx/dep 8. diet changed to chopped. in bed all doris, appeared to have slept through the night. Mental Status Exam Mental Status Exam Narrative: Appearance: wearing hospital gown, poor eye contact, in NAD Behavior: cooperative Psychomotor: retardation Speech: soft, muffled, terse, non-spontaneous TP: linear TC: no delusions or paranoia expressed Affect: constricted, hypo-intense SI: none expressed HI: none expressed VH/AH: none expressed Insight/judgment: fair x 2. Memory/cog: alert, oriented x 3. Diagnostics Vital Signs (24Hr): Vital Signs - 24 hr 01/05/23 20:23 01/06/23 08:00 Temperature 98.0 F 97.1 F Pulse Rate 64 74 Respiratory Rate 16 20 Blood Pressure 130/65 110/59 L Pulse Oximetry 95 94 Oxygen Delivery Method Room Air Room Air BMI result Body Mass Index 30.1 Labs 01/03/23 17:40 01/05/23 13:38 Labs: Laboratory Results - last 48 hr 01/05/23 01/05/23 01/05/23 08:23 08:36 13:38 Sodium 141 Potassium 4.0 Chloride 105 Carbon Dioxide 28 Anion Gap 12 BUN 24 H Creatinine 1.39 Estim Creat Clear Calc 64.0 Estimated GFR 52 POC Glucose 107 Random Glucose 120 H Calcium 9.5 Total Bilirubin 0.5 AST 9 ALT < 5 Alkaline Phosphatase 57 Total Protein 6.8 Albumin 4.0 [place] 0.85 01/06/23 07:43 Sodium Potassium Chloride Carbon Dioxide Anion Gap BUN Creatinine Estim Creat Clear Calc Estimated GFR POC Glucose 112 Random Glucose Calcium Total Bilirubin AST ALT Alkaline Phosphatase Total Protein Albumin Tiro Medications Medications Current Medications Acetaminophen (Acetaminophen 325 Mg Tablet) 650 mg PO Q6H PRN PRN Reason: Headache/Pain Mild Scale (1-3) Al Hydroxide/Mg Hydroxide (Magnesium Hydrox/Alum Hydrox 30 Ml Oral.Susp) 30 ml PO Q6H PRN PRN Reason: Heartburn/Nausea Last Admin: 01/05/23 11:31 Dose: 30 ml Clozapine (Clozapine 100 Mg Tablet) 300 mg PO BEDTIME [facility] Last Admin: 01/05/23 22:44 Dose: 300 mg Hydroxyzine HCl (Hydroxyzine Hcl 25 Mg Tablet) 25 mg PO Q6H PRN PRN Reason: Anxiety [place] Carbonate ([place] Carbonate 300 Mg Capsule) 600 mg PO BEDTIME [facility] Last Admin: 01/05/23 22:44 Dose: 600 mg Lorazepam (Lorazepam 1 Mg Tablet) 1 mg PO TID [facility] Last Admin: 01/06/23 08:01 Dose: 1 mg Magnesium Hydroxide (Milk Of Magnesia 30 Ml Oral.Susp) 30 ml PO DAILY PRN PRN Reason: Constipation Metformin HCl (Metformin Hcl Er 500 Mg Tab.Er.24h) 500 mg PO DAILY [facility] Last Admin: 01/06/23 08:00 Dose: 500 mg Nicotine Polacrilex (Nicotine Polacrilex 2 Mg Gum) 4 mg BUCCAL Q2H PRN PRN Reason: Nicotine Cravings Senna/Docusate Sodium (Sennosides/Docusate Sodium Tablet) 2 tab PO BID [facility] Last Admin: 01/06/23 08:01 Dose: 2 tab Sertraline HCl (Sertraline Hcl 100 Mg Tablet) 100 mg PO DAILY [facility] Last Admin: 01/06/23 08:01 Dose: 100 mg Tamsulosin HCl (Tamsulosin Hcl 0.4 Mg Capsule) 0.4 mg PO DAILY [facility] Last Admin: 01/06/23 08:01 Dose: 0.4 mg Trazodone HCl (Trazodone Hcl 50 Mg Tablet) 50 mg PO BEDTIME MRX1 PRN PRN Reason: Insomnia Allergies Allergies Allergy/AdvReac Type Severity Reaction Status Date / Time No Known Allergies [NKA] Allergy Unknown NONE Verified 12/21/22 09:41 Assessment & Plan Assessment & Plan (1) Schizoaffective disorder, depressive type: Status: Acute Code(s): F25.1 - Schizoaffective disorder, depressive type Plan 01/04: continue outpt medications regimen for now. recent onset of mvmts which appear c/w EPS; unclear why movements have begun. trend Sx. T/C ECT if indicated, as was done at most recent admission on M3. 01/05- pt reports hearing voices, taking clozaril. will check clozaril level. decrease sertraline as it worsens psychosis. order bladder scan POST VOID, may need straigh cath if PVR>300ml. sennakot BID. Pt appears with chest congestion, excessive secretions. 01/06: continue current mgmt. IVM have resolved. T/C anti-ACh agent if sialorrhea continues. declines ECT at present. feels changed from admission, unable to express in what way. Reason for continued inpatient stay Substantial Risk for: inability to function and rapid decompensation Time Spent With Patient Time: Total time managing care of this patient today __25__ minutes.
[2023-01-06 20:00] VITALS: BP 127/69; PULSE 62; RESP 18; TEMP 36.1; O2SAT 95
[2023-01-06] MEDS: cloZAPine 100 MG TABLET 300 MG PO (22:15)
[2023-01-06] MEDS: Lithium Carbonate 300 MG CAPSULE 600 MG PO (22:15)
[2023-01-07] MEDS: metFORMIN HCl ER 500 MG TAB.ER.24H PO (08:22)
[2023-01-07 08:23] LABS: Glucose, Whole Blood 102 mg/dL (60-115)
[2023-01-07] MEDS: Tamsulosin HCL 0.4 MG CAPSULE PO (08:23)
[2023-01-07] MEDS: LORazepam 1 MG TABLET PO ×3 (08:23→22:36)
[2023-01-07] MEDS: Sennosides/Docusate Sodium TABLET 2 TAB PO ×2 (08:23→22:36)
[2023-01-07] MEDS: Sertraline HCL 100 MG TABLET PO (08:23)
--- NOTE | 2023-01-07 16:46 | P.PNPSI_ITS ---
Subjective Subjective Date of Service: 01/07/23 Reason For Visit: Psychosis Medical Problems Affecting Mental Status: No Interim History: No management issues. Eating in day area. Minimal engagement not much to say . Medication Compliance: Yes Side effects from medications: No Attending Groups: No Review of Systems Acute medical concerns: No Review of Systems Review of Systems Yes Unobtainable due to mental status Mental Status Exam Mental Status Exam Narrative: Appearance: wearing hospital gown, poor eye contact, in NAD Behavior: cooperative Psychomotor: retardation Speech: soft, muffled, terse, non-spontaneous TP: linear TC: no delusions or paranoia expressed Affect: constricted, hypo-intense SI: none expressed HI: none expressed VH/AH: none expressed Insight/judgment: fair x 2. Memory/cog: alert, oriented x 3. Diagnostics Vital Signs (24Hr): Vital Signs - 24 hr 01/06/23 20:00 Temperature 97.0 F Pulse Rate 62 Respiratory Rate 18 Blood Pressure 127/69 Pulse Oximetry 95 Oxygen Delivery Method Room Air BMI result Body Mass Index 30.1 Labs 01/03/23 17:40 01/05/23 13:38 Labs: Laboratory Results - last 48 hr 01/06/23 01/07/23 07:43 08:13 POC Glucose 112 102 Medications Medications Current Medications Acetaminophen (Acetaminophen 325 Mg Tablet) 650 mg PO Q6H PRN PRN Reason: Headache/Pain Mild Scale (1-3) Al Hydroxide/Mg Hydroxide (Magnesium Hydrox/Alum Hydrox 30 Ml Oral.Susp) 30 ml PO Q6H PRN PRN Reason: Heartburn/Nausea Last Admin: 01/05/23 11:31 Dose: 30 ml Clozapine (Clozapine 100 Mg Tablet) 300 mg PO BEDTIME [facility] Last Admin: 01/06/23 22:15 Dose: 300 mg Hydroxyzine HCl (Hydroxyzine Hcl 25 Mg Tablet) 25 mg PO Q6H PRN PRN Reason: Anxiety [place] Carbonate ([place] Carbonate 300 Mg Capsule) 600 mg PO BEDTIME [facility] Last Admin: 01/06/23 22:15 Dose: 600 mg Lorazepam (Lorazepam 1 Mg Tablet) 1 mg PO TID [facility] Last Admin: 01/07/23 14:47 Dose: 1 mg Magnesium Hydroxide (Milk Of Magnesia 30 Ml Oral.Susp) 30 ml PO DAILY PRN PRN Reason: Constipation Metformin HCl (Metformin Hcl Er 500 Mg Tab.Er.24h) 500 mg PO DAILY [facility] Last Admin: 01/07/23 08:22 Dose: 500 mg Nicotine Polacrilex (Nicotine Polacrilex 2 Mg Gum) 4 mg BUCCAL Q2H PRN PRN Reason: Nicotine Cravings Senna/Docusate Sodium (Sennosides/Docusate Sodium Tablet) 2 tab PO BID [facility] Last Admin: 01/07/23 08:23 Dose: 2 tab Sertraline HCl (Sertraline Hcl 100 Mg Tablet) 100 mg PO DAILY [facility] Last Admin: 01/07/23 08:23 Dose: 100 mg Tamsulosin HCl (Tamsulosin Hcl 0.4 Mg Capsule) 0.4 mg PO DAILY [facility] Last Admin: 01/07/23 08:23 Dose: 0.4 mg Trazodone HCl (Trazodone Hcl 50 Mg Tablet) 50 mg PO BEDTIME MRX1 PRN PRN Reason: Insomnia Allergies Allergies Allergy/AdvReac Type Severity Reaction Status Date / Time No Known Allergies [NKA] Allergy Unknown NONE Verified 12/21/22 09:41 Assessment & Plan Assessment & Plan (1) Schizoaffective disorder, depressive type: Status: Acute Code(s): F25.1 - Schizoaffective disorder, depressive type Plan 01/04: continue outpt medications regimen for now. recent onset of mvmts which appear c/w EPS; unclear why movements have begun. trend Sx. T/C ECT if indicated, as was done at most recent admission on M3. 01/05- pt reports hearing voices, taking clozaril. will check clozaril level. decrease sertraline as it worsens psychosis. order bladder scan POST VOID, may need straigh cath if PVR>300ml. sennakot BID. Pt appears with chest congestion, excessive secretions. 01/06: continue current mgmt. IVM have resolved. T/C anti-ACh agent if sialorrhea continues. declines ECT at present. feels changed from admission, unable to express in what way. 01/07: no changes Reason for continued inpatient stay Substantial Risk for: inability to function Time Spent With Patient Time: Total time managing care of this patient today ____ minutes.
[2023-01-07 19:12] VITALS: BP 135/70; PULSE 61; RESP 16; TEMP 36.2; O2SAT 97
[2023-01-07] MEDS: Lithium Carbonate 300 MG CAPSULE 600 MG PO (22:36)
[2023-01-07] MEDS: cloZAPine 100 MG TABLET 300 MG PO (22:36)
[2023-01-08 08:08] LABS: Glucose, Whole Blood 96 mg/dL (60-115)
[2023-01-08 08:50] VITALS: BP 126/75; PULSE 70; RESP 20; TEMP 36.1; O2SAT 95
[2023-01-08] MEDS: metFORMIN HCl ER 500 MG TAB.ER.24H PO (08:53)
[2023-01-08] MEDS: Sennosides/Docusate Sodium TABLET 2 TAB PO ×2 (08:53→21:15)
[2023-01-08] MEDS: LORazepam 1 MG TABLET PO ×3 (08:53→21:15)
[2023-01-08] MEDS: Tamsulosin HCL 0.4 MG CAPSULE PO (08:53)
[2023-01-08] MEDS: Sertraline HCL 100 MG TABLET PO (08:53)
--- NOTE | 2023-01-08 14:56 | P.PNPSI_ITS ---
Subjective Subjective Date of Service: 01/08/23 Reason For Visit: Psychosis Interim History: No management issues. Showered today. Eating in day area. No concerns. No overt psychosis Medication Compliance: Yes Side effects from medications: No Attending Groups: Intermittent Review of Systems Acute medical concerns: No Review of Systems Review of Systems Yes all other systems are reviewed and are negative Mental Status Exam Mental Status Exam Narrative: Appearance: wearing hospital gown, poor eye contact, in NAD Behavior: cooperative Psychomotor: retardation Speech: soft, muffled, terse, non-spontaneous TP: linear TC: no delusions or paranoia expressed Affect: constricted, hypo-intense SI: none expressed HI: none expressed VH/AH: none expressed Insight/judgment: fair x 2. Memory/cog: alert, oriented x 3. Diagnostics Vital Signs (24Hr): Vital Signs - 24 hr 01/07/23 19:12 01/08/23 08:50 Temperature 97.1 F 97.0 F Pulse Rate 61 70 Respiratory Rate 16 20 Blood Pressure 135/70 126/75 Pulse Oximetry 97 95 Oxygen Delivery Method Room Air Room Air BMI result Body Mass Index 30.1 Labs 01/03/23 17:40 01/05/23 13:38 Labs: Laboratory Results - last 48 hr 01/07/23 01/08/23 08:13 08:02 POC Glucose 102 96 Medications Medications Current Medications Acetaminophen (Acetaminophen 325 Mg Tablet) 650 mg PO Q6H PRN PRN Reason: Headache/Pain Mild Scale (1-3) Al Hydroxide/Mg Hydroxide (Magnesium Hydrox/Alum Hydrox 30 Ml Oral.Susp) 30 ml PO Q6H PRN PRN Reason: Heartburn/Nausea Last Admin: 01/05/23 11:31 Dose: 30 ml Clozapine (Clozapine 100 Mg Tablet) 300 mg PO BEDTIME [facility] Last Admin: 01/07/23 22:36 Dose: 300 mg Hydroxyzine HCl (Hydroxyzine Hcl 25 Mg Tablet) 25 mg PO Q6H PRN PRN Reason: Anxiety [place] Carbonate ([place] Carbonate 300 Mg Capsule) 600 mg PO BEDTIME [facility] Last Admin: 01/07/23 22:36 Dose: 600 mg Lorazepam (Lorazepam 1 Mg Tablet) 1 mg PO TID [facility] Last Admin: 01/08/23 08:53 Dose: 1 mg Magnesium Hydroxide (Milk Of Magnesia 30 Ml Oral.Susp) 30 ml PO DAILY PRN PRN Reason: Constipation Metformin HCl (Metformin Hcl Er 500 Mg Tab.Er.24h) 500 mg PO DAILY [facility] Last Admin: 01/08/23 08:53 Dose: 500 mg Nicotine Polacrilex (Nicotine Polacrilex 2 Mg Gum) 4 mg BUCCAL Q2H PRN PRN Reason: Nicotine Cravings Senna/Docusate Sodium (Sennosides/Docusate Sodium Tablet) 2 tab PO BID [facility] Last Admin: 01/08/23 08:53 Dose: 2 tab Sertraline HCl (Sertraline Hcl 100 Mg Tablet) 100 mg PO DAILY [facility] Last Admin: 01/08/23 08:53 Dose: 100 mg Tamsulosin HCl (Tamsulosin Hcl 0.4 Mg Capsule) 0.4 mg PO DAILY [facility] Last Admin: 01/08/23 08:53 Dose: 0.4 mg Trazodone HCl (Trazodone Hcl 50 Mg Tablet) 50 mg PO BEDTIME MRX1 PRN PRN Reason: Insomnia Allergies Allergies Allergy/AdvReac Type Severity Reaction Status Date / Time No Known Allergies [NKA] Allergy Unknown NONE Verified 12/21/22 09:41 Assessment & Plan Assessment & Plan (1) Schizoaffective disorder, depressive type: Status: Acute Code(s): F25.1 - Schizoaffective disorder, depressive type Plan 01/04: continue outpt medications regimen for now. recent onset of mvmts which appear c/w EPS; unclear why movements have begun. trend Sx. T/C ECT if indicated, as was done at most recent admission on M3. 01/05- pt reports hearing voices, taking clozaril. will check clozaril level. decrease sertraline as it worsens psychosis. order bladder scan POST VOID, may need straigh cath if PVR>300ml. sennakot BID. Pt appears with chest congestion, excessive secretions. 01/06: continue current mgmt. IVM have resolved. T/C anti-ACh agent if sialorrhea continues. declines ECT at present. feels changed from admission, unable to express in what way. 01/08: no changes Reason for continued inpatient stay Substantial Risk for: inability to function Time Spent With Patient Time: Total time managing care of this patient today ____ minutes.
[2023-01-08 18:57] VITALS: BP 117/64; PULSE 74; RESP 16; TEMP 36.3; O2SAT 96
[2023-01-08] MEDS: Lithium Carbonate 300 MG CAPSULE 600 MG PO (21:15)
[2023-01-08] MEDS: cloZAPine 100 MG TABLET 300 MG PO (21:16)
[2023-01-09 07:59] LABS: Glucose, Whole Blood 108 mg/dL (60-115)
[2023-01-09 08:29] VITALS: BP 123/60; PULSE 78; RESP 16; TEMP 36.1; O2SAT 100
[2023-01-09] MEDS: Tamsulosin HCL 0.4 MG CAPSULE PO (08:52)
[2023-01-09] MEDS: metFORMIN HCl ER 500 MG TAB.ER.24H PO (08:52)
[2023-01-09] MEDS: Sertraline HCL 100 MG TABLET PO (08:53)
[2023-01-09] MEDS: LORazepam 1 MG TABLET PO ×3 (08:53→20:28)
[2023-01-09] MEDS: Sennosides/Docusate Sodium TABLET 2 TAB PO ×2 (08:53→20:28)
--- NOTE | 2023-01-09 15:46 | P.PNPSI_ITS ---
Subjective Subjective Date of Service: 01/09/23 Reason For Visit: Psychosis Interim History: reports feeling slightly better than at admission. slowed and disorganized. says he might as well do ECT. per staff, isolative, napping. up for meals. visit with father. increased presence in afternoon. denies SI/HI/AVH. still PMR. voiding 1-2x/shift. Mental Status Exam Mental Status Exam Narrative: Appearance: wearing hospital gown, poor eye contact, in NAD Behavior: cooperative Psychomotor: retardation Speech: soft, muffled, terse, non-spontaneous TP: linear very briefly , then tangential/loose TC: no delusions or paranoia expressed Affect: constricted, hypo-intense mood: depressed SI: none expressed HI: none expressed VH/AH: none expressed Insight/judgment: fair x 2. Memory/cog: alert, oriented x 3. Diagnostics Vital Signs (24Hr): Vital Signs - 24 hr 01/08/23 18:57 01/09/23 08:29 Temperature 97.3 F 97.0 F Pulse Rate 74 78 Respiratory Rate 16 16 Blood Pressure 117/64 123/60 Pulse Oximetry 96 100 Oxygen Delivery Method Room Air Room Air BMI result Body Mass Index 30.1 Labs 01/03/23 17:40 01/05/23 13:38 Labs: Laboratory Results - last 48 hr 01/08/23 01/09/23 08:02 07:54 POC Glucose 96 108 Medications Medications Current Medications Acetaminophen (Acetaminophen 325 Mg Tablet) 650 mg PO Q6H PRN PRN Reason: Headache/Pain Mild Scale (1-3) Al Hydroxide/Mg Hydroxide (Magnesium Hydrox/Alum Hydrox 30 Ml Oral.Susp) 30 ml PO Q6H PRN PRN Reason: Heartburn/Nausea Last Admin: 01/05/23 11:31 Dose: 30 ml Clozapine (Clozapine 100 Mg Tablet) 300 mg PO BEDTIME KRISTIN Last Admin: 01/08/23 21:16 Dose: 300 mg Hydroxyzine HCl (Hydroxyzine Hcl 25 Mg Tablet) 25 mg PO Q6H PRN PRN Reason: Anxiety [place] Carbonate ([place] Carbonate 300 Mg Capsule) 600 mg PO BEDTIME KRISTIN Last Admin: 01/08/23 21:15 Dose: 600 mg Lorazepam (Lorazepam 1 Mg Tablet) 1 mg PO TID KRISTIN Last Admin: 01/09/23 14:52 Dose: 1 mg Magnesium Hydroxide (Milk Of Magnesia 30 Ml Oral.Susp) 30 ml PO DAILY PRN PRN Reason: Constipation Metformin HCl (Metformin Hcl Er 500 Mg Tab.Er.24h) 500 mg PO DAILY [facility] Last Admin: 01/09/23 08:52 Dose: 500 mg Nicotine Polacrilex (Nicotine Polacrilex 2 Mg Gum) 4 mg BUCCAL Q2H PRN PRN Reason: Nicotine Cravings Senna/Docusate Sodium (Sennosides/Docusate Sodium Tablet) 2 tab PO BID [facility] Last Admin: 01/09/23 08:53 Dose: 2 tab Sertraline HCl (Sertraline Hcl 100 Mg Tablet) 100 mg PO DAILY [facility] Last Admin: 01/09/23 08:53 Dose: 100 mg Tamsulosin HCl (Tamsulosin Hcl 0.4 Mg Capsule) 0.4 mg PO DAILY [facility] Last Admin: 01/09/23 08:52 Dose: 0.4 mg Trazodone HCl (Trazodone Hcl 50 Mg Tablet) 50 mg PO BEDTIME MRX1 PRN PRN Reason: Insomnia Allergies Allergies Allergy/AdvReac Type Severity Reaction Status Date / Time No Known Allergies [NKA] Allergy Unknown NONE Verified 12/21/22 09:41 Assessment & Plan Assessment & Plan (1) Schizoaffective disorder, depressive type: Status: Acute Code(s): F25.1 - Schizoaffective disorder, depressive type Plan 01/04: continue outpt medications regimen for now. recent onset of mvmts which appear c/w EPS; unclear why movements have begun. trend Sx. T/C ECT if indicated, as was done at most recent admission on M3. 01/05- pt reports hearing voices, taking clozaril. will check clozaril level. decrease sertraline as it worsens psychosis. order bladder scan POST VOID, may need straigh cath if PVR>300ml. sennakot BID. Pt appears with chest congestion, excessive secretions. 01/06: continue current mgmt. IVM have resolved. T/C anti-ACh agent if sialorrhea continues. declines ECT at present. feels changed from admission, unable to express in what way. 01/08: no changes 01/09: says he is depressed, expresses interest in ECT. consult [facility] and obtain medical clearance. continue current medication. Reason for continued inpatient stay Substantial Risk for: inability to function and rapid decompensation Time Spent With Patient Time: Total time managing care of this patient today __25__ minutes.
[2023-01-09 19:45] VITALS: BP 131/60; PULSE 66; RESP 17; TEMP 36.4; O2SAT 96
[2023-01-09] MEDS: cloZAPine 100 MG TABLET 300 MG PO (20:27)
[2023-01-09] MEDS: Lithium Carbonate 300 MG CAPSULE 600 MG PO (20:28)
--- NOTE | 2023-01-09 20:59 | P.CONHOSP_ITS ---
History of Present Illness Data of Consult Service Date: 01/09/23 Requesting physician: Alejandro Crane Primary Care Provider: Unknown Physician HPI Reason for consult: ECT evaluation 57-year-old male with history of hypertension, [id number] type 2 diabetes, schizoaffective disorder, and depression with catatonia admitted to Psychiatry with consult placed to hospitalist service for ECT evaluation. The patient is not the best historian. He is noted to be very slow to respond and question the accuracy of his responses. The patient has no complaints. Upon review of systems, he does state he is short of breath all the time. Patient is noted to be sitter comfortably without any increased work of breathing or distress. He states he is able to walk down the diaz and Nura and flight of stairs but occasionally gets lightheaded. No syncope. No chest pains or palpitations. Denies any history of seizure activity. States he has undergone ECT in the past but is unable to elaborate on this. EKG reviewed which shows NSR, rate 64, no significant st/t wave abnormality. Review of Systems 2 Review of Systems: General: No fevers, malaise, unintentional weight loss HEENT: No blurred vision, diplopia Cardiovascular: No chest pain, palpitations, or leg edema Respiratory: +sob. No wheezing, cough Neuro: No headaches, weakness, paresthesias, seizures. +lightheaded PMFSH Medical History Schizophrenia, catatonic BPH (benign prostatic hyperplasia) Screening for colon cancer Screening for prostate cancer Essential (primary) hypertension Diabetes mellitus Family History Mother Cancer Father Kidney agenesis Surgical History History of colonoscopy History of tooth extraction History of root canal procedure Social History Household Members: None Housing: Apartment Do you presently have visiting nurse or other home services: Yes ([place]) Alcohol intake: never Patient Tobacco Use Status: Never used Tobacco Smoked in Last 30 Days: No e-Cigarette/Vaping Use: Never Used Second Hand Smoke Exposure: No Use of substances other than those prescribed or required for medical reasons: No Currently Displaying Signs/Symptoms of Drug Intoxication Withdrawal: No Any prior treatment program specific to substance use: No Have you been hit, kicked, punched, or otherwise hurt by someone within the past year? If so, by whom?: No Do you feel safe in your current relationship?: No Current Relationship Is there a partner from a previous relationship who is making you feel unsafe now?: No Are you made to feel afraid or neglected: No Advance Directives: No Advance Directives Information Provided: No Do you have thoughts of harming others: None Do you have a plan to hurt others: No Plan Recently lost weight without trying: Unsure Poor oral hygiene: No service: No Current occupational status: employed Sexual orientation: Unable to collect Cognitive needs: No Hearing needs: No Vision needs: No Meds Allergies Allergy/AdvReac Type Severity Reaction Status Date / Time No Known Allergies [NKA] Allergy Unknown NONE Verified 12/21/22 09:41 Active Medications: Current Medications Acetaminophen (Acetaminophen 325 Mg Tablet) 650 mg PO Q6H PRN PRN Reason: Headache/Pain Mild Scale (1-3) Al Hydroxide/Mg Hydroxide (Magnesium Hydrox/Alum Hydrox 30 Ml Oral.Susp) 30 ml PO Q6H PRN PRN Reason: Heartburn/Nausea Last Admin: 01/05/23 11:31 Dose: 30 ml Clozapine (Clozapine 100 Mg Tablet) 300 mg PO BEDTIME [facility] Last Admin: 01/09/23 20:27 Dose: 300 mg Hydroxyzine HCl (Hydroxyzine Hcl 25 Mg Tablet) 25 mg PO Q6H PRN PRN Reason: Anxiety [place] Carbonate ([place] Carbonate 300 Mg Capsule) 600 mg PO BEDTIME [facility] Last Admin: 01/09/23 20:28 Dose: 600 mg Lorazepam (Lorazepam 1 Mg Tablet) 1 mg PO TID [facility] Last Admin: 01/09/23 20:28 Dose: 1 mg Magnesium Hydroxide (Milk Of Magnesia 30 Ml Oral.Susp) 30 ml PO DAILY PRN PRN Reason: Constipation Metformin HCl (Metformin Hcl Er 500 Mg Tab.Er.24h) 500 mg PO DAILY [facility] Last Admin: 01/09/23 08:52 Dose: 500 mg Nicotine Polacrilex (Nicotine Polacrilex 2 Mg Gum) 4 mg BUCCAL Q2H PRN PRN Reason: Nicotine Cravings Senna/Docusate Sodium (Sennosides/Docusate Sodium Tablet) 2 tab PO BID [facility] Last Admin: 01/09/23 20:28 Dose: 2 tab Sertraline HCl (Sertraline Hcl 100 Mg Tablet) 100 mg PO DAILY [facility] Last Admin: 01/09/23 08:53 Dose: 100 mg Tamsulosin HCl (Tamsulosin Hcl 0.4 Mg Capsule) 0.4 mg PO DAILY [facility] Last Admin: 01/09/23 08:52 Dose: 0.4 mg Trazodone HCl (Trazodone Hcl 50 Mg Tablet) 50 mg PO BEDTIME MRX1 PRN PRN Reason: Insomnia Home Medications Medication Instructions Recorded Confirmed Last Taken Type lancets 28 gauge (FreeStyle 01/04/23 01/04/23 Unknown History Lancets) tamsulosin 0.4 mg capsule 0.4 mg PO DAILY 01/04/23 01/04/23 01/02/23 17:00 History Physical Exam 2 Vital Signs and Narrative: Vital Signs: Last Vital Signs Temp 97.6 F 01/09/23 19:45 Pulse 66 01/09/23 19:45 Resp 17 01/09/23 19:45 BP 131/60 01/09/23 19:45 Pulse Ox 96 01/09/23 19:45 O2 Del Method Room Air 01/09/23 19:45 BMI result Body Mass Index 30.1 Constitutional - Awake and Alert, No apparent distress Eyes - PERRLA, EOMI Cardiovascular - S1S2, RRR, No edema Respiratory - Normal lung expansion, Normal respiratory effort, No respiratory distress, CTA bilaterally Extremities - no calf tenderness bilaterally, no swelling Skin - Warm/Dry Neurological - Alert & oriented x3 Psych- flat affect, slow to respond Results Labs 01/03/23 17:40 01/05/23 13:38 Labs: Laboratory Results - last 24 hr 01/09/23 07:54 POC Glucose 108 Assessment and Plan (1) Routine medical exam: Status: Acute Plan 57-year-old male with history of hypertension, [id number] type 2 diabetes, schizoaffective disorder, and depression with catatonia admitted to Psychiatry consult placed to hospitalist service for ECT evaluation. # schizoaffective disorder/depression with catatonia -plan per Psychiatry -Pt reports constant sob. He is maintaining oximetry 100% with lungs CTA on exam. There is no respiratory distress or increased wob. VS are stable. EKG is without dysrhythmia or significant ST/T wave abnormality, QT/QTc normal. Discussed with Dr. Torres. At this time, no medical contraindication exists that would preclude pt from undergoing ECT. Thank you for allowing me to participate in this consult. Signing off at this time. Please do not hesitate to call for further questions. Time Spent With Patient Time: Total time managing care of this patient today ____ minutes.
[2023-01-10 08:08] LABS: Neut%MD 65.2 %; Neutrophils Absolute Auto 4.7 x10*3/uL (2.0-8.3); WBCANC 7.3 X10*3/uL
[2023-01-10 08:09] LABS: Glucose, Whole Blood 101 mg/dL (60-115)
[2023-01-10] MEDS: Sennosides/Docusate Sodium TABLET 2 TAB PO ×2 (08:38→19:53)
[2023-01-10] MEDS: LORazepam 1 MG TABLET PO ×3 (08:38→19:53)
[2023-01-10] MEDS: Tamsulosin HCL 0.4 MG CAPSULE PO (08:38)
[2023-01-10] MEDS: metFORMIN HCl ER 500 MG TAB.ER.24H PO (08:38)
[2023-01-10] MEDS: Sertraline HCL 100 MG TABLET PO (08:39)
[2023-01-10 08:44] VITALS: BP 127/70; PULSE 62; RESP 16; TEMP 36.2; O2SAT 96
--- NOTE | 2023-01-10 15:39 | P.PNPSI_ITS ---
Subjective Subjective Date of Service: 01/10/23 Reason For Visit: Psychosis Interim History: no change in presentation. reports slight improvement in depression from admission. met with [facility], remains interested in ECT. per staff, sleeping better. eating 100%. out in the milieu more. not attending groups. taking meds, c/o depression. +SI. no plan. slept well overnight. Mental Status Exam Mental Status Exam Narrative: Appearance: wearing hospital gown, poor eye contact, in NAD Behavior: cooperative Psychomotor: retardation Speech: soft, muffled, terse, non-spontaneous TP: linear TC: no delusions or paranoia expressed Affect: constricted, hypo-intense mood: depressed SI: none expressed HI: none expressed VH/AH: none expressed Insight/judgment: fair x 2. Memory/cog: alert, oriented x 3. Diagnostics Vital Signs (24Hr): Vital Signs - 24 hr 01/09/23 19:45 01/10/23 08:44 Temperature 97.6 F 97.1 F Pulse Rate 66 62 Respiratory Rate 17 16 Blood Pressure 131/60 127/70 Pulse Oximetry 96 96 Oxygen Delivery Method Room Air Room Air BMI result Body Mass Index 30.1 Labs 01/03/23 17:40 01/05/23 13:38 Labs: Laboratory Results - last 48 hr 01/09/23 01/10/23 01/10/23 07:54 07:49 08:01 Absolute Neuts (auto) 4.7 POC Glucose 108 101 Medications Medications Current Medications Acetaminophen (Acetaminophen 325 Mg Tablet) 650 mg PO Q6H PRN PRN Reason: Headache/Pain Mild Scale (1-3) Al Hydroxide/Mg Hydroxide (Magnesium Hydrox/Alum Hydrox 30 Ml Oral.Susp) 30 ml PO Q6H PRN PRN Reason: Heartburn/Nausea Last Admin: 01/05/23 11:31 Dose: 30 ml Clozapine (Clozapine 100 Mg Tablet) 300 mg PO BEDTIME KRISTIN Last Admin: 01/09/23 20:27 Dose: 300 mg Hydroxyzine HCl (Hydroxyzine Hcl 25 Mg Tablet) 25 mg PO Q6H PRN PRN Reason: Anxiety [place] Carbonate ([place] Carbonate 300 Mg Capsule) 600 mg PO BEDTIME KRISTIN Last Admin: 01/09/23 20:28 Dose: 600 mg Lorazepam (Lorazepam 1 Mg Tablet) 1 mg PO TID KRISTIN Last Admin: 01/10/23 14:37 Dose: 1 mg Magnesium Hydroxide (Milk Of Magnesia 30 Ml Oral.Susp) 30 ml PO DAILY PRN PRN Reason: Constipation Metformin HCl (Metformin Hcl Er 500 Mg Tab.Er.24h) 500 mg PO DAILY [facility] Last Admin: 01/10/23 08:38 Dose: 500 mg Nicotine Polacrilex (Nicotine Polacrilex 2 Mg Gum) 4 mg BUCCAL Q2H PRN PRN Reason: Nicotine Cravings Senna/Docusate Sodium (Sennosides/Docusate Sodium Tablet) 2 tab PO BID [facility] Last Admin: 01/10/23 08:38 Dose: 2 tab Sertraline HCl (Sertraline Hcl 100 Mg Tablet) 100 mg PO DAILY [facility] Last Admin: 01/10/23 08:39 Dose: 100 mg Tamsulosin HCl (Tamsulosin Hcl 0.4 Mg Capsule) 0.4 mg PO DAILY [facility] Last Admin: 01/10/23 08:38 Dose: 0.4 mg Trazodone HCl (Trazodone Hcl 50 Mg Tablet) 50 mg PO BEDTIME MRX1 PRN PRN Reason: Insomnia Allergies Allergies Allergy/AdvReac Type Severity Reaction Status Date / Time No Known Allergies [NKA] Allergy Unknown NONE Verified 12/21/22 09:41 Assessment & Plan Assessment & Plan (1) Routine medical exam: Status: Acute Code(s): Z00.00 - Encounter for general adult medical examination without abnormal findings (2) Schizoaffective disorder, depressive type: Status: Acute Code(s): F25.1 - Schizoaffective disorder, depressive type Assessment and Plan: 01/04: continue outpt medications regimen for now. recent onset of mvmts which appear c/w EPS; unclear why movements have begun. trend Sx. T/C ECT if indicated, as was done at most recent admission on M3. 01/05- pt reports hearing voices, taking clozaril. will check clozaril level. decrease sertraline as it worsens psychosis. order bladder scan POST VOID, may need straigh cath if PVR>300ml. sennakot BID. Pt appears with chest congestion, excessive secretions. 01/06: continue current mgmt. IVM have resolved. T/C anti-ACh agent if sialorrhea continues. declines ECT at present. feels changed from admission, unable to express in what way. 01/08: no changes 01/09: says he is depressed, expresses interest in ECT. consult [facility] and obtain medical clearance. continue current medication. 01/10: medically cleared for ECT. seen by [facility]; awaiting go-ahead from [facility] for ECT. continue current medications for now. stable presentation, depressed and severely PMR. Reason for continued inpatient stay Substantial Risk for: inability to function and rapid decompensation Time Spent With Patient Time: Total time managing care of this patient today __25__ minutes.
[2023-01-10 18:00] VITALS: BP 133/67; PULSE 59; RESP 16; TEMP 36.3; O2SAT 96
[2023-01-10] MEDS: Lithium Carbonate 300 MG CAPSULE 600 MG PO (19:53)
[2023-01-10] MEDS: cloZAPine 100 MG TABLET 300 MG PO (19:53)
[2023-01-10] MEDS: traZODone HCL 50 MG TABLET PO (19:53)
--- NOTE | 2023-01-10 22:22 | P.CONECT_ITS ---
History of Present Illness General Data Date of Service: 01/10/23 Reason for consult: ect evaluation Requesting provider: Alejandro Crane History of Present Illness Pt is a 57 yo male hx schizoaffective dx adm with depression ,catatonic like be oscar.On cloz sertraline donald 1 tid . Has been inc unable to fx taking care of himself Past Psychiatric History/Medication Trials: hx of catatonia on cloz x yrs past hx of ect [facility] Medical History Schizophrenia, catatonic BPH (benign prostatic hyperplasia) Screening for colon cancer Screening for prostate cancer Essential (primary) hypertension Diabetes mellitus Surgical History History of colonoscopy History of tooth extraction History of root canal procedure Family History: unknown Social History: lives independently, works, drives. apartment in [place]. Trauma History: unknown Meds/Allergies Meds Home Medications Medication Instructions Recorded Confirmed Type lancets 28 gauge (AristeoStyle 01/04/23 01/04/23 History Lancets) tamsulosin 0.4 mg capsule 0.4 mg PO DAILY 01/04/23 01/04/23 History Allergies Allergies Allergy/AdvReac Type Severity Reaction Status Date / Time No Known Allergies [NKA] Allergy Unknown NONE Verified 12/21/22 09:41 Mental Status Exam Mental Status Exam Narrative: * Appearance: lying in bed lethargic Behavior: cooperative Psychomotor: retardation Speech: soft, muffled, terse, non-spontaneous TP: linear TC: no delusions or paranoia expressed Affect: constricted, hypo-intense mood: depressed SI: none expressed HI: none expressed VH/AH: pos aud diaz Insight/judgment: fair x 2. Memory/cog: alert, oriented x 3. Assessment & Plan Assessment & Plan (1) Schizoaffective disorder, depressive type: Status: Acute Code(s): F25.1 - Schizoaffective disorder, depressive type Plan consider ect for depression catatonia coukld inc lorazepam pt was asking about ect hx htn diabetes will review with team Total time managing care of this patient today ____ minutes. Patient educated on: diagnosis and ECT Informed Consent: further education needed
[2023-01-11] MEDS: metFORMIN HCl ER 500 MG TAB.ER.24H PO (08:28)
[2023-01-11] MEDS: LORazepam 1 MG TABLET PO ×3 (08:28→20:24)
[2023-01-11] MEDS: Sertraline HCL 100 MG TABLET PO (08:28)
[2023-01-11] MEDS: Sennosides/Docusate Sodium TABLET 2 TAB PO ×2 (08:29→20:24)
[2023-01-11] MEDS: Tamsulosin HCL 0.4 MG CAPSULE PO (08:29)
[2023-01-11 08:31] LABS: Glucose, Whole Blood 94 mg/dL (60-115)
[2023-01-11 08:36] VITALS: BP 127/78; PULSE 73; RESP 16; TEMP 36.3; O2SAT 95
--- NOTE | 2023-01-11 15:34 | P.PNPSI_ITS ---
Subjective Subjective Date of Service: 01/11/23 Reason For Visit: Psychosis Interim History: slightly less delay in responses. continue current mgmt. planning for ECT monday. per staff, PMR. no groups or socializing. slept eves. taking meds. slept O/N. ECT monday. Mental Status Exam Mental Status Exam Narrative: Appearance: wearing street clothes, soiled, poor eye contact, in NAD Behavior: cooperative Psychomotor: retardation Speech: soft, muffled, terse, non-spontaneous TP: linear TC: no delusions or paranoia expressed Affect: constricted, hypo-intense mood: depressed SI: none expressed HI: none expressed VH/AH: none expressed Insight/judgment: fair x 2. Memory/cog: alert, oriented x 3. Diagnostics Vital Signs (24Hr): Vital Signs - 24 hr 01/10/23 18:00 01/11/23 08:36 Temperature 97.3 F 97.3 F Pulse Rate 59 73 Respiratory Rate 16 16 Blood Pressure 133/67 127/78 Pulse Oximetry 96 95 Oxygen Delivery Method Room Air Room Air BMI result Body Mass Index 30.1 Labs 01/03/23 17:40 01/05/23 13:38 Labs: Laboratory Results - last 48 hr 01/10/23 01/10/23 01/11/23 07:49 08:01 08:27 Absolute Neuts (auto) 4.7 POC Glucose 101 94 Medications Medications Current Medications Acetaminophen (Acetaminophen 325 Mg Tablet) 650 mg PO Q6H PRN PRN Reason: Headache/Pain Mild Scale (1-3) Al Hydroxide/Mg Hydroxide (Magnesium Hydrox/Alum Hydrox 30 Ml Oral.Susp) 30 ml PO Q6H PRN PRN Reason: Heartburn/Nausea Last Admin: 01/05/23 11:31 Dose: 30 ml Clozapine (Clozapine 100 Mg Tablet) 300 mg PO BEDTIME KRISTIN Last Admin: 01/10/23 19:53 Dose: 300 mg Hydroxyzine HCl (Hydroxyzine Hcl 25 Mg Tablet) 25 mg PO Q6H PRN PRN Reason: Anxiety [place] Carbonate ([place] Carbonate 300 Mg Capsule) 600 mg PO BEDTIME KRISTIN Last Admin: 01/10/23 19:53 Dose: 600 mg Lorazepam (Lorazepam 1 Mg Tablet) 1 mg PO TID KRISTIN Last Admin: 01/11/23 14:39 Dose: 1 mg Magnesium Hydroxide (Milk Of Magnesia 30 Ml Oral.Susp) 30 ml PO DAILY PRN PRN Reason: Constipation Metformin HCl (Metformin Hcl Er 500 Mg Tab.Er.24h) 500 mg PO DAILY [facility] Last Admin: 01/11/23 08:28 Dose: 500 mg Nicotine Polacrilex (Nicotine Polacrilex 2 Mg Gum) 4 mg BUCCAL Q2H PRN PRN Reason: Nicotine Cravings Senna/Docusate Sodium (Sennosides/Docusate Sodium Tablet) 2 tab PO BID [facility] Last Admin: 01/11/23 08:29 Dose: 2 tab Sertraline HCl (Sertraline Hcl 100 Mg Tablet) 100 mg PO DAILY [facility] Last Admin: 01/11/23 08:28 Dose: 100 mg Tamsulosin HCl (Tamsulosin Hcl 0.4 Mg Capsule) 0.4 mg PO DAILY [facility] Last Admin: 01/11/23 08:29 Dose: 0.4 mg Trazodone HCl (Trazodone Hcl 50 Mg Tablet) 50 mg PO BEDTIME MRX1 PRN PRN Reason: Insomnia Last Admin: 01/10/23 19:53 Dose: 50 mg Allergies Allergies Allergy/AdvReac Type Severity Reaction Status Date / Time No Known Allergies [NKA] Allergy Unknown NONE Verified 12/21/22 09:41 Assessment & Plan Assessment & Plan (1) Schizoaffective disorder, depressive type: Status: Acute Code(s): F25.1 - Schizoaffective disorder, depressive type Plan 01/04: continue outpt medications regimen for now. recent onset of mvmts which appear c/w EPS; unclear why movements have begun. trend Sx. T/C ECT if indicated; pt has h/o ECT with some response. 01/05- pt reports hearing voices, taking clozaril. will check clozaril level. decrease sertraline as it worsens psychosis. order bladder scan POST VOID, may need straigh cath if PVR>300ml. sennakot BID. Pt appears with chest congestion, excessive secretions. 01/06: continue current mgmt. IVM have resolved. T/C anti-ACh agent if sialorrhea continues. declines ECT at present. feels changed from admission, unable to express in what way. 01/08: no changes 01/09: says he is depressed, expresses interest in ECT. consult [facility] and obtain medical clearance. continue current medication. 01/10: medically cleared for ECT. seen by [facility]; awaiting go-ahead from [facility] for ECT. continue current medications for now. stable presentation, depressed and severely PMR. 01/11: continue current mgmt. ECT to start monday. slightly faster responses today. Reason for continued inpatient stay Substantial Risk for: inability to function and rapid decompensation Time Spent With Patient Time: Total time managing care of this patient today _25___ minutes.
[2023-01-11 19:58] VITALS: BP 119/56; PULSE 60; RESP 18; TEMP 36.4; O2SAT 97
[2023-01-11] MEDS: cloZAPine 100 MG TABLET 300 MG PO (20:22)
[2023-01-11] MEDS: Lithium Carbonate 300 MG CAPSULE 600 MG PO (20:23)
[2023-01-12 07:00] VITALS: BMI 30.1
[2023-01-12 08:30] VITALS: BP 124/67; PULSE 68; RESP 20; TEMP 36.4; O2SAT 97
[2023-01-12] MEDS: LORazepam 1 MG TABLET PO ×2 (08:33→17:41)
[2023-01-12] MEDS: metFORMIN HCl ER 500 MG TAB.ER.24H PO (08:34)
[2023-01-12] MEDS: Sertraline HCL 100 MG TABLET PO (08:34)
[2023-01-12] MEDS: Tamsulosin HCL 0.4 MG CAPSULE PO (08:34)
[2023-01-12] MEDS: Sennosides/Docusate Sodium TABLET 2 TAB PO ×2 (08:34→22:08)
[2023-01-12 09:28] LABS: Creatinine Clr Calc Pharmacy 76.7; Estimated Glomerular Filt Rate > 60
[2023-01-12 10:54] LABS: Glucose, Whole Blood 121 mg/dL (60-115)
--- NOTE | 2023-01-12 14:35 | P.PNPSI_ITS ---
Subjective Subjective Date of Service: 01/12/23 Reason For Visit: Psychosis Interim History: calm, cooperative, PMR, depressed. per staff, showered and washed clothes with minimal support. not attending groups, not engaging in social interactions. in the milieu for meals only. mostly in bed eves and NOC. Mental Status Exam Mental Status Exam Narrative: Appearance: wearing street clothes, soiled, poor eye contact, in NAD Behavior: cooperative Psychomotor: retardation Speech: soft, muffled, terse, non-spontaneous TP: linear TC: no delusions or paranoia expressed Affect: constricted, hypo-intense mood: depressed SI: none expressed HI: none expressed VH/AH: none expressed Insight/judgment: fair x 2. Memory/cog: alert, oriented x 3. Diagnostics Vital Signs (24Hr): Vital Signs - 24 hr 01/11/23 19:58 01/12/23 08:30 Temperature 97.5 F 97.5 F Pulse Rate 60 68 Respiratory Rate 18 20 Blood Pressure 119/56 L 124/67 Pulse Oximetry 97 97 Oxygen Delivery Method Room Air Room Air BMI result Body Mass Index 30.1 Labs 01/03/23 17:40 01/12/23 08:46 Labs: Laboratory Results - last 48 hr 01/11/23 01/12/23 01/12/23 08:27 08:46 10:50 Creatinine 1.20 Estim Creat Clear Calc 76.7 Estimated GFR > 60 POC Glucose 94 121 H Medications Medications Current Medications Acetaminophen (Acetaminophen 325 Mg Tablet) 650 mg PO Q6H PRN PRN Reason: Headache/Pain Mild Scale (1-3) Al Hydroxide/Mg Hydroxide (Magnesium Hydrox/Alum Hydrox 30 Ml Oral.Susp) 30 ml PO Q6H PRN PRN Reason: Heartburn/Nausea Last Admin: 01/05/23 11:31 Dose: 30 ml Clozapine (Clozapine 100 Mg Tablet) 300 mg PO BEDTIME KRISTIN Last Admin: 01/11/23 20:22 Dose: 300 mg Hydroxyzine HCl (Hydroxyzine Hcl 25 Mg Tablet) 25 mg PO Q6H PRN PRN Reason: Anxiety [place] Carbonate ([place] Carbonate 300 Mg Capsule) 300 mg PO BEDTIME KRISTIN Lorazepam (Lorazepam 1 Mg Tablet) 1 mg PO BID@0800,1800 K[facility] Magnesium Hydroxide (Milk Of Magnesia 30 Ml Oral.Susp) 30 ml PO DAILY PRN PRN Reason: Constipation Metformin HCl (Metformin Hcl Er 500 Mg Tab.Er.24h) 500 mg PO DAILY [facility] Last Admin: 01/12/23 08:34 Dose: 500 mg Nicotine Polacrilex (Nicotine Polacrilex 2 Mg Gum) 4 mg BUCCAL Q2H PRN PRN Reason: Nicotine Cravings Senna/Docusate Sodium (Sennosides/Docusate Sodium Tablet) 2 tab PO BID [facility] Last Admin: 01/12/23 08:34 Dose: 2 tab Sertraline HCl (Sertraline Hcl 100 Mg Tablet) 100 mg PO DAILY [facility] Last Admin: 01/12/23 08:34 Dose: 100 mg Tamsulosin HCl (Tamsulosin Hcl 0.4 Mg Capsule) 0.4 mg PO DAILY [facility] Last Admin: 01/12/23 08:34 Dose: 0.4 mg Trazodone HCl (Trazodone Hcl 50 Mg Tablet) 50 mg PO BEDTIME MRX1 PRN PRN Reason: Insomnia Last Admin: 01/10/23 19:53 Dose: 50 mg Allergies Allergies Allergy/AdvReac Type Severity Reaction Status Date / Time No Known Allergies [NKA] Allergy Unknown NONE Verified 12/21/22 09:41 Assessment & Plan Assessment & Plan (1) Schizoaffective disorder, depressive type: Status: Acute Code(s): F25.1 - Schizoaffective disorder, depressive type Plan 01/04: continue outpt medications regimen for now. recent onset of mvmts which appear c/w EPS; unclear why movements have begun. trend Sx. T/C ECT if indicated; pt has h/o ECT with some response. 01/05- pt reports hearing voices, taking clozaril. will check clozaril level. decrease sertraline as it worsens psychosis. order bladder scan POST VOID, may need straigh cath if PVR>300ml. sennakot BID. Pt appears with chest congestion, excessive secretions. 01/06: continue current mgmt. IVM have resolved. T/C anti-ACh agent if sialorrhea continues. declines ECT at present. feels changed from admission, unable to express in what way. 01/08: no changes 01/09: says he is depressed, expresses interest in ECT. consult [facility] and obtain medical clearance. continue current medication. 01/10: medically cleared for ECT. seen by [facility]; awaiting go-ahead from [facility] for ECT. continue current medications for now. stable presentation, depressed and severely PMR. 01/11: continue current mgmt. ECT to start monday. slightly faster responses today. 01/12: slower today, no substantial change in past couple of days. ECT tomorrow morning. Reason for continued inpatient stay Substantial Risk for: inability to function and rapid decompensation Time Spent With Patient Time: Total time managing care of this patient today ____ minutes.
[2023-01-12 20:12] VITALS: BP 115/65; PULSE 58; RESP 16; TEMP 36.2; O2SAT 95
[2023-01-12] MEDS: cloZAPine 100 MG TABLET 300 MG PO (22:09)
[2023-01-12] MEDS: Acetaminophen 325 MG TABLET 650 MG PO (22:13)
[2023-01-13] VITALS (12 sets, daily range): BP systolic 117–159; BP diastolic 64–83; PULSE 63–93; RESP 16–21; TEMP 36.1–36.7; O2SAT 93–100
[2023-01-13 08:11] LABS: Glucose, Whole Blood 102 mg/dL (60-115)
--- NOTE | 2023-01-13 09:28 | P.CONAN_ITS ---
[facility] Active Problems Active Problems: All Active Problems (Updated 01/09/23 @ 21:06 by ALEC Agustin) Routine medical exam (Acute) Schizoaffective disorder, depressive type (Acute) Schizophrenia, catatonic (Acute) Mild sleep apnea (Acute) Nocturnal hypoxia (Acute) Joint inflammation of right hand and wrist (Acute) Cough (Acute) Benign prostate hyperplasia (Acute) Adult general medical exam (Acute) Essential hypertension (Acute) Right hip pain (Acute) Status post fall (Acute) Screening for colon cancer (Acute) Screening for prostate cancer (Acute) Essential (primary) hypertension (Acute) Diabetes mellitus (Acute) Past Medical History Medical History Schizophrenia, catatonic BPH (benign prostatic hyperplasia) Screening for colon cancer Screening for prostate cancer Essential (primary) hypertension Diabetes mellitus Family History Family History Mother Cancer Father Kidney agenesis Family history of problems with anesthesia: No Surgical History Surgical History History of colonoscopy History of tooth extraction History of root canal procedure History of Problems with Anesthesia: No Social History Social History Household Members: None Housing: Apartment Do you presently have visiting nurse or other home services: Yes ([facility]) Alcohol intake: never Patient Tobacco Use Status: Never used Tobacco Smoked in Last 30 Days: No e-Cigarette/Vaping Use: Never Used Second Hand Smoke Exposure: No Use of substances other than those prescribed or required for medical reasons: No Currently Displaying Signs/Symptoms of Drug Intoxication Withdrawal: No Any prior treatment program specific to substance use: No Have you been hit, kicked, punched, or otherwise hurt by someone within the past year? If so, by whom?: No Do you feel safe in your current relationship?: No Current Relationship Is there a partner from a previous relationship who is making you feel unsafe now?: No Are you made to feel afraid or neglected: No Advance Directives: No Advance Directives Information Provided: No Do you have thoughts of harming others: None Do you have a plan to hurt others: No Plan Recently lost weight without trying: Unsure Poor oral hygiene: No service: No Current occupational status: employed Sexual orientation: Unable to collect Cognitive needs: No Hearing needs: No Vision needs: No Meds Allergies Allergy/AdvReac Type Severity Reaction Status Date / Time No Known Allergies [NKA] Allergy Unknown NONE Verified 12/21/22 09:41 Active Medications: Current Medications Acetaminophen (Acetaminophen 325 Mg Tablet) 650 mg PO Q6H PRN PRN Reason: Headache/Pain Mild Scale (1-3) Last Admin: 01/12/23 22:13 Dose: 650 mg Al Hydroxide/Mg Hydroxide (Magnesium Hydrox/Alum Hydrox 30 Ml Oral.Susp) 30 ml PO Q6H PRN PRN Reason: Heartburn/Nausea Last Admin: 01/05/23 11:31 Dose: 30 ml Clozapine (Clozapine 100 Mg Tablet) 300 mg PO BEDTIME [facility] Last Admin: 01/12/23 22:09 Dose: 300 mg Hydroxyzine HCl (Hydroxyzine Hcl 25 Mg Tablet) 25 mg PO Q6H PRN PRN Reason: Anxiety Lactated Ringer's (Lr) 1,000 mls @ 50 mls/hr IVCONT .Q20H [facility] [place] Carbonate ([place] Carbonate 300 Mg Capsule) 300 mg PO BEDTIME [facility] Last Admin: 01/12/23 22:16 Dose: Not Given Lorazepam (Lorazepam 1 Mg Tablet) 1 mg PO BID@0800,1800 [facility] Last Admin: 01/12/23 17:41 Dose: 1 mg Magnesium Hydroxide (Milk Of Magnesia 30 Ml Oral.Susp) 30 ml PO DAILY PRN PRN Reason: Constipation Metformin HCl (Metformin Hcl Er 500 Mg Tab.Er.24h) 500 mg PO DAILY [facility] Last Admin: 01/12/23 08:34 Dose: 500 mg Nicotine Polacrilex (Nicotine Polacrilex 2 Mg Gum) 4 mg BUCCAL Q2H PRN PRN Reason: Nicotine Cravings Senna/Docusate Sodium (Sennosides/Docusate Sodium Tablet) 2 tab PO BID [facility] Last Admin: 01/12/23 22:08 Dose: 2 tab Sertraline HCl (Sertraline Hcl 100 Mg Tablet) 100 mg PO DAILY [facility] Last Admin: 01/12/23 08:34 Dose: 100 mg Tamsulosin HCl (Tamsulosin Hcl 0.4 Mg Capsule) 0.4 mg PO DAILY [facility] Last Admin: 01/12/23 08:34 Dose: 0.4 mg Trazodone HCl (Trazodone Hcl 50 Mg Tablet) 50 mg PO BEDTIME MRX1 PRN PRN Reason: Insomnia Last Admin: 01/10/23 19:53 Dose: 50 mg Home Medications Medication Instructions Recorded Confirmed Last Taken Type lancets 28 gauge (FreeStyle 01/04/23 01/04/23 Unknown History Lancets) tamsulosin 0.4 mg capsule 0.4 mg PO DAILY 01/04/23 01/04/23 01/02/23 17:00 History Exam Exam Date and Time: January 13, 2023 0928 Height,Weight and Vital Signs: Height 5 ft 10 in Weight 95.148 kg Last Vital Signs Temp 97 F 01/13/23 08:44 Pulse 73 01/13/23 08:44 Resp 16 01/13/23 08:44 BP 124/80 01/13/23 08:44 Pulse Ox 95 01/13/23 08:44 O2 Del Method Room Air 01/13/23 08:44 Pertinent Lab Results Pertinent Lab Results: Laboratory Tests 01/03/23 01/04/23 01/04/23 17:40 00:55 10:38 WBC 7.8 RBC 4.42 L Hgb 12.7 L Hct 40.1 L MCV 90.7 MCH 28.7 MCHC 31.7 RDW 13.2 Plt Count 166 MPV 11.0 Immature Gran % (Auto) 0.5 H Neut % (Auto) 71.4 Lymph % (Auto) 20.7 [place] % (Auto) 7.4 Eos % (Auto) 0.0 Baso % (Auto) 0.0 Lymph # (Auto) 1.6 [place] # (Auto) 0.6 Eos # (Auto) 0.0 Baso # (Auto) 0.0 Abs Immat Gran (auto) 0.04 H Absolute Neuts (auto) 5.6 Absolute Nucleated RBC 0.000 Nucleated RBC % (auto) 0.0 Sodium 140 Potassium 4.1 Chloride 105 Carbon Dioxide 25 Anion Gap 14 BUN 19 H Creatinine 1.35 Estim Creat Clear Calc 65.9 Estimated GFR 54 POC Glucose 108 Random Glucose 87 Calcium 9.5 D Magnesium 2.1 Total Bilirubin 0.5 Direct Bilirubin 0.2 AST 12 ALT 6 Alkaline Phosphatase 59 Total Protein 7.2 Albumin 4.2 Urine Color Yellow Urine Appearance Clear Urine pH 6.5 Ur Specific [place] 1.015 Urine Protein Negative Urine Glucose (UA) Negative Urine Ketones Negative Urine Blood Negative Urine Nitrite Negative Ur Leukocyte Esterase Negative Urine Opiates Screen Not Detected Urine Fentanyl Screen Not Detected Ur Barbiturates Screen Not Detected Ur Phencyclidine Scrn Not Detected Ur Amphetamines Screen Not Detected U Benzodiazepines Scrn Not Detected [place] 0.72 Urine Cocaine Screen Not Detected U Marijuana (THC) Screen Not Detected Ethyl Alcohol < 10 COVID-19 ([facility]) Negative COVID-19 Clin Com See Note 01/05/23 01/05/23 01/05/23 08:23 08:36 13:38 WBC RBC Hgb Hct MCV MCH MCHC RDW Plt Count MPV Immature Gran % (Auto) Neut % (Auto) Lymph % (Auto) [place] % (Auto) Eos % (Auto) Baso % (Auto) Lymph # (Auto) [place] # (Auto) Eos # (Auto) Baso # (Auto) Abs Immat Gran (auto) Absolute Neuts (auto) Absolute Nucleated RBC Nucleated RBC % (auto) Sodium 141 Potassium 4.0 Chloride 105 Carbon Dioxide 28 Anion Gap 12 BUN 24 H Creatinine 1.39 Estim Creat Clear Calc 64.0 Estimated GFR 52 POC Glucose 107 Random Glucose 120 H Calcium 9.5 Magnesium Total Bilirubin 0.5 Direct Bilirubin AST 9 ALT < 5 Alkaline Phosphatase 57 Total Protein 6.8 Albumin 4.0 Urine Color Urine Appearance Urine pH Ur Specific [place] Urine Protein Urine Glucose (UA) Urine Ketones Urine Blood Urine Nitrite Ur Leukocyte Esterase Urine Opiates Screen Urine Fentanyl Screen Ur Barbiturates Screen Ur Phencyclidine Scrn Ur Amphetamines Screen U Benzodiazepines Scrn [place] 0.85 Urine Cocaine Screen U Marijuana (THC) Screen Ethyl Alcohol COVID-19 ([facility]) COVID-19 Clin Com 01/06/23 01/07/23 01/08/23 07:43 08:13 08:02 WBC RBC Hgb Hct MCV MCH MCHC RDW Plt Count MPV Immature Gran % (Auto) Neut % (Auto) Lymph % (Auto) [place] % (Auto) Eos % (Auto) Baso % (Auto) Lymph # (Auto) [place] # (Auto) Eos # (Auto) Baso # (Auto) Abs Immat Gran (auto) Absolute Neuts (auto) Absolute Nucleated RBC Nucleated RBC % (auto) Sodium Potassium Chloride Carbon Dioxide Anion Gap BUN Creatinine Estim Creat Clear Calc Estimated GFR POC Glucose 112 102 96 Random Glucose Calcium Magnesium Total Bilirubin Direct Bilirubin AST ALT Alkaline Phosphatase Total Protein Albumin Urine Color Urine Appearance Urine pH Ur Specific [place] Urine Protein Urine Glucose (UA) Urine Ketones Urine Blood Urine Nitrite Ur Leukocyte Esterase Urine Opiates Screen Urine Fentanyl Screen Ur Barbiturates Screen Ur Phencyclidine Scrn Ur Amphetamines Screen U Benzodiazepines Scrn [place] Urine Cocaine Screen U Marijuana (THC) Screen Ethyl Alcohol COVID-19 ([facility]) COVID-19 [employer] Com 01/09/23 01/10/23 01/10/23 07:54 07:49 08:01 WBC RBC Hgb Hct MCV MCH MCHC RDW Plt Count MPV Immature Gran % (Auto) Neut % (Auto) Lymph % (Auto) [place] % (Auto) Eos % (Auto) Baso % (Auto) Lymph # (Auto) [place] # (Auto) Eos # (Auto) Baso # (Auto) Abs Immat Gran (auto) Absolute Neuts (auto) 4.7 Absolute Nucleated RBC Nucleated RBC % (auto) Sodium Potassium Chloride Carbon Dioxide Anion Gap BUN Creatinine Estim Creat Clear Calc Estimated GFR POC Glucose 108 101 Random Glucose Calcium Magnesium Total Bilirubin Direct Bilirubin AST ALT Alkaline Phosphatase Total Protein Albumin Urine Color Urine Appearance Urine pH Ur Specific [place] Urine Protein Urine Glucose (UA) Urine Ketones Urine Blood Urine Nitrite Ur Leukocyte Esterase Urine Opiates Screen Urine Fentanyl Screen Ur Barbiturates Screen Ur Phencyclidine Scrn Ur Amphetamines Screen U Benzodiazepines Scrn [place] Urine Cocaine Screen U Marijuana (THC) Screen Ethyl Alcohol COVID-19 ([facility]) COVID-19 [employer] Com 01/11/23 01/12/23 01/12/23 08:27 08:46 10:50 WBC RBC Hgb Hct MCV MCH MCHC RDW Plt Count MPV Immature Gran % (Auto) Neut % (Auto) Lymph % (Auto) [place] % (Auto) Eos % (Auto) Baso % (Auto) Lymph # (Auto) [place] # (Auto) Eos # (Auto) Baso # (Auto) Abs Immat Gran (auto) Absolute Neuts (auto) Absolute Nucleated RBC Nucleated RBC % (auto) Sodium Potassium Chloride Carbon Dioxide Anion Gap BUN Creatinine 1.20 Estim Creat Clear Calc 76.7 Estimated GFR > 60 POC Glucose 94 121 H Random Glucose Calcium Magnesium Total Bilirubin Direct Bilirubin AST ALT Alkaline Phosphatase Total Protein Albumin Urine Color Urine Appearance Urine pH Ur Specific [place] Urine Protein Urine Glucose (UA) Urine Ketones Urine Blood Urine Nitrite Ur Leukocyte Esterase Urine Opiates Screen Urine Fentanyl Screen Ur Barbiturates Screen Ur Phencyclidine Scrn Ur Amphetamines Screen U Benzodiazepines Scrn [place] Urine Cocaine Screen U Marijuana (THC) Screen Ethyl Alcohol COVID-19 ([facility]) COVID-19 Clin Com 01/13/23 08:05 WBC RBC Hgb Hct MCV MCH MCHC RDW Plt Count MPV Immature Gran % (Auto) Neut % (Auto) Lymph % (Auto) [place] % (Auto) Eos % (Auto) Baso % (Auto) Lymph # (Auto) [place] # (Auto) Eos # (Auto) Baso # (Auto) Abs Immat Gran (auto) Absolute Neuts (auto) Absolute Nucleated RBC Nucleated RBC % (auto) Sodium Potassium Chloride Carbon Dioxide Anion Gap BUN Creatinine Estim Creat Clear Calc Estimated GFR POC Glucose 102 Random Glucose Calcium Magnesium Total Bilirubin Direct Bilirubin AST ALT Alkaline Phosphatase Total Protein Albumin Urine Color Urine Appearance Urine pH Ur Specific [place] Urine Protein Urine Glucose (UA) Urine Ketones Urine Blood Urine Nitrite Ur Leukocyte Esterase Urine Opiates Screen Urine Fentanyl Screen Ur Barbiturates Screen Ur Phencyclidine Scrn Ur Amphetamines Screen U Benzodiazepines Scrn [place] Urine Cocaine Screen U Marijuana (THC) Screen Ethyl Alcohol COVID-19 ([facility]) COVID-19 Clin Com Airway Mallampati Class: II TM Dist: >3cm Neck ROM: Full Heart: rrr Lungs: cta Assessment and Plan Assessment Anesthesia Assessment: Anesthesia Plan Discussed and Chart Reviewed Final Anesthetic Review Family History of Problems with Anesthesia: No History of Problems with Anesthesia: No NPO: Yes ASA Class: III Final Preanesthetic Review: No Changes in Pt Med Stat, Meds/Allgs Chart Reviewed and Consent Obtained/Reviewed Patient Risk: Intermediate Procedure Risk: Intermediate Anesthetic Plan Anesthetic Plan: GA Disposition: Standard PACU
--- NOTE | 2023-01-13 10:03 | MHC.SHP ---
Pre-Procedural Eval Section A Date of Service: 01/13/23 The patient is an INPATIENT: Yes Changes since office visit: Yes Changes in Medication; No Cold of Flu in the past 2 weeks, No New Medical Problems and No Patient answered all questions The History & Physical has been completed within 30 days and I have reviewed it.: Yes Section B Chief Complaint: Psychosis Allergies: Allergies Allergy/AdvReac Type Severity Reaction Status Date / Time No Known Allergies [NKA] Allergy Unknown NONE Verified 12/21/22 09:41 Plan I have reviewed the history and physical and performed a pertinent physical examination on my patient. No changes have occurred unless specified. Time Spent With Patient Time: Total time managing care of this patient today ____ minutes.
[2023-01-13] MEDS: LORazepam 2 MG/ML VIAL IVPUSH (10:37)
[2023-01-13] MEDS: Sertraline HCL 100 MG TABLET PO (12:01)
[2023-01-13] MEDS: metFORMIN HCl ER 500 MG TAB.ER.24H PO (12:02)
[2023-01-13] MEDS: Sennosides/Docusate Sodium TABLET 2 TAB PO ×2 (12:03→20:30)
[2023-01-13] MEDS: Tamsulosin HCL 0.4 MG CAPSULE PO (12:03)
--- NOTE | 2023-01-13 13:40 | P.PNPSI_ITS ---
Subjective Subjective Date of Service: 01/13/23 Reason For Visit: Psychosis Interim History: calm, cooperative, back from ECT. no complications. no questions or concerns. per staff, PMR. cued to do ADLs. shaved, showered. dep/anx 7. eating OK. got ECT this morning. Mental Status Exam Mental Status Exam Narrative: Appearance: wearing hospital clothes, poor eye contact, in NAD Behavior: cooperative Psychomotor: retardation Speech: soft, muffled, terse, non-spontaneous TP: linear TC: no delusions or paranoia expressed Affect: constricted, hypo-intense mood: depressed SI: none expressed HI: none expressed VH/AH: none expressed Insight/judgment: fair x 2. Memory/cog: alert, oriented x 3. Diagnostics Vital Signs (24Hr): Vital Signs - 24 hr 01/12/23 20:12 01/13/23 08:15 01/13/23 08:35 Temperature 97.2 F 98.1 F 98.1 F Pulse Rate 58 71 71 Respiratory Rate 16 20 20 Blood Pressure 115/65 117/64 117/64 Pulse Oximetry 95 94 94 Oxygen Delivery Method Room Air Room Air Oxygen Flow Rate 01/13/23 08:44 01/13/23 10:30 01/13/23 10:35 Temperature 97 F 97.5 F Pulse Rate 73 63 93 Respiratory Rate 16 16 16 Blood Pressure 124/80 157/80 H 141/78 H Pulse Oximetry 95 100 98 Oxygen Delivery Method Room Air Nasal Cannula with ETCO2 Oxygen Flow Rate 2 01/13/23 10:40 01/13/23 10:45 01/13/23 11:00 Temperature Pulse Rate 85 83 85 Respiratory Rate 21 H 20 21 H Blood Pressure 159/75 H 159/75 H 149/81 H Pulse Oximetry 98 98 93 Oxygen Delivery Method Nasal Cannula with ETCO2 Nasal Cannula with ETCO2 Room Air Oxygen Flow Rate 2 2 52 01/13/23 11:15 01/13/23 11:30 01/13/23 11:55 Temperature 97.2 F Pulse Rate 83 83 84 Respiratory Rate 20 21 H 20 Blood Pressure 140/83 H 141/80 H 136/70 Pulse Oximetry 94 93 95 Oxygen Delivery Method Room Air Room Air Oxygen Flow Rate 01/13/23 11:55 Temperature 97.2 F Pulse Rate 84 Respiratory Rate 20 Blood Pressure 136/70 Pulse Oximetry 95 Oxygen Delivery Method Room Air Oxygen Flow Rate BMI result Body Mass Index 30.1 Labs 01/03/23 17:40 01/12/23 08:46 Labs: Laboratory Results - last 48 hr 01/12/23 01/12/23 01/13/23 08:46 10:50 08:05 Creatinine 1.20 Estim Creat Clear Calc 76.7 Estimated GFR > 60 POC Glucose 121 H 102 Medications Medications Current Medications Acetaminophen (Acetaminophen 325 Mg Tablet) 650 mg PO Q6H PRN PRN Reason: Headache/Pain Mild Scale (1-3) Last Admin: 01/12/23 22:13 Dose: 650 mg Al Hydroxide/Mg Hydroxide (Magnesium Hydrox/Alum Hydrox 30 Ml Oral.Susp) 30 ml PO Q6H PRN PRN Reason: Heartburn/Nausea Last Admin: 01/05/23 11:31 Dose: 30 ml Clozapine (Clozapine 100 Mg Tablet) 300 mg PO BEDTIME [facility] Last Admin: 01/12/23 22:09 Dose: 300 mg Hydroxyzine HCl (Hydroxyzine Hcl 25 Mg Tablet) 25 mg PO Q6H PRN PRN Reason: Anxiety Lorazepam (Lorazepam 1 Mg Tablet) 1 mg PO BID@0800,1800 [facility] Last Admin: 01/13/23 12:02 Dose: Not Given Magnesium Hydroxide (Milk Of Magnesia 30 Ml Oral.Susp) 30 ml PO DAILY PRN PRN Reason: Constipation Metformin HCl (Metformin Hcl Er 500 Mg Tab.Er.24h) 500 mg PO DAILY [facility] Last Admin: 01/13/23 12:02 Dose: 500 mg Nicotine Polacrilex (Nicotine Polacrilex 2 Mg Gum) 4 mg BUCCAL Q2H PRN PRN Reason: Nicotine Cravings Senna/Docusate Sodium (Sennosides/Docusate Sodium Tablet) 2 tab PO BID [facility] Last Admin: 01/13/23 12:03 Dose: 2 tab Sertraline HCl (Sertraline Hcl 100 Mg Tablet) 100 mg PO DAILY [facility] Last Admin: 01/13/23 12:01 Dose: 100 mg Tamsulosin HCl (Tamsulosin Hcl 0.4 Mg Capsule) 0.4 mg PO DAILY [facility] Last Admin: 01/13/23 12:03 Dose: 0.4 mg Trazodone HCl (Trazodone Hcl 50 Mg Tablet) 50 mg PO BEDTIME MRX1 PRN PRN Reason: Insomnia Last Admin: 01/10/23 19:53 Dose: 50 mg Allergies Allergies Allergy/AdvReac Type Severity Reaction Status Date / Time No Known Allergies [NKA] Allergy Unknown NONE Verified 12/21/22 09:41 Assessment & Plan Assessment & Plan (1) Schizoaffective disorder, depressive type: Status: Acute Code(s): F25.1 - Schizoaffective disorder, depressive type Plan 01/04: continue outpt medications regimen for now. recent onset of mvmts which appear c/w EPS; unclear why movements have begun. trend Sx. T/C ECT if indicated; pt has h/o ECT with some response. 01/05- pt reports hearing voices, taking clozaril. will check clozaril level. decrease sertraline as it worsens psychosis. order bladder scan POST VOID, may need straigh cath if PVR>300ml. sennakot BID. Pt appears with chest congestion, excessive secretions. 01/06: continue current mgmt. IVM have resolved. T/C anti-ACh agent if sialorrhea continues. declines ECT at present. feels changed from admission, unable to express in what way. 01/08: no changes 01/09: says he is depressed, expresses interest in ECT. consult [facility] and obtain medical clearance. continue current medication. 01/10: medically cleared for ECT. seen by [facility]; awaiting go-ahead from [place] for ECT. continue current medications for now. stable presentation, depressed and severely PMR. 01/11: continue current mgmt. ECT to start monday. slightly faster responses today. 01/12: slower today, no substantial change in past couple of days. ECT tomorrow morning. 01/13: [facility] #1 completed this morning. no negative events. continue current mgmt. ECT #2 monday. Reason for continued inpatient stay Substantial Risk for: inability to function and rapid decompensation Time Spent With Patient Time: Total time managing care of this patient today ____ minutes.
[2023-01-13] MEDS: LORazepam 1 MG TABLET PO (17:33)
--- NOTE | 2023-01-13 20:05 | HO.ECTPROC ---
ECT Procedure Note Diagnosis/Treatment Date of Service: 01/13/23 Diagnosis: Schizoaffective Disorder Current Treatment Number: 1 Treatment: Series Interval Clinical Notes: Patient depressed withdrawn slowed mentation able to give consent agreeable to treatment Time: Total time managing care of this patient today ____ minutes. ECT Settings Device: THYMATRON DGx Electrode Placement: Bitemporal Program/Pulse Width: 0.50 Energy Percent: 100 Seizure Duration By EEG (in seconds): 42 Medications Administration General Anesthetic: Etomidate (16) Muscle Relaxant: Succinylcholine (120) Ancillary Medications Anti-emetics: Zofran - Pre ECT Miscillaneous Medications: Other (lorazepam 2 mg) Airway Management Airway Management: Bag Mask Ventilation Treatment Recommendations No Changes Recommended: No change Notes: iv lorazepam 2 mg post Pt Tolerated Procedure w/o Issue: Yes
[2023-01-13] MEDS: cloZAPine 100 MG TABLET 300 MG PO (20:30)
[2023-01-14 08:10] LABS: Glucose, Whole Blood 94 mg/dL (60-115)
[2023-01-14] MEDS: LORazepam 1 MG TABLET PO ×3 (08:21→21:02)
[2023-01-14] MEDS: Sennosides/Docusate Sodium TABLET 2 TAB PO ×2 (08:21→21:02)
[2023-01-14] MEDS: Tamsulosin HCL 0.4 MG CAPSULE PO (08:21)
[2023-01-14] MEDS: metFORMIN HCl ER 500 MG TAB.ER.24H PO (08:21)
[2023-01-14] MEDS: Sertraline HCL 100 MG TABLET PO (08:21)
[2023-01-14 09:31] VITALS: BP 144/73; PULSE 70; RESP 20; TEMP 36.2; O2SAT 95
--- NOTE | 2023-01-14 09:49 | P.PNPSI_ITS ---
Subjective Subjective Date of Service: 01/14/23 Reason For Visit: Psychosis Subjective Notes: Conditional Voluntary Interim History: Patient somewhat improved some decrease in lethargy internal preoccupation has been doing self-care tolerated 1st ECT without difficulty Medication Compliance: Yes Side effects from medications: No Review of Systems Acute medical concerns: No Mental Status Exam Mental Status Exam Narrative: Appearance: Behavior: cooperative Psychomotor: retardation Speech: soft, slowed hesitant TP: linear TC: no delusions or paranoia expressed Affect: constricted, flat mood: depressed SI: none expressed HI: none expressed VH/AH: pos Insight/judgment: fair x 2. Memory/cog: alert, oriented x 3. Diagnostics Vital Signs (24Hr): Vital Signs - 24 hr 01/13/23 10:30 01/13/23 10:35 01/13/23 10:40 Temperature 97.5 F Pulse Rate 63 93 85 Respiratory Rate 16 16 21 H Blood Pressure 157/80 H 141/78 H 159/75 H Pulse Oximetry 100 98 98 Oxygen Delivery Method Nasal Cannula with ETCO2 Nasal Cannula with ETCO2 Oxygen Flow Rate 2 2 01/13/23 10:45 01/13/23 11:00 01/13/23 11:15 Temperature Pulse Rate 83 85 83 Respiratory Rate 20 21 H 20 Blood Pressure 159/75 H 149/81 H 140/83 H Pulse Oximetry 98 93 94 Oxygen Delivery Method Nasal Cannula with ETCO2 Room Air Room Air Oxygen Flow Rate 2 52 01/13/23 11:30 01/13/23 11:55 01/13/23 11:55 Temperature 97.2 F 97.2 F Pulse Rate 83 84 84 Respiratory Rate 21 H 20 20 Blood Pressure 141/80 H 136/70 136/70 Pulse Oximetry 93 95 95 Oxygen Delivery Method Room Air Room Air Oxygen Flow Rate 01/13/23 19:35 01/14/23 09:31 Temperature 97.0 F 97.2 F Pulse Rate 73 70 Respiratory Rate 18 20 Blood Pressure 142/73 H 144/73 H Pulse Oximetry 97 95 Oxygen Delivery Method Room Air Room Air Oxygen Flow Rate BMI result Body Mass Index 30.1 Labs 01/03/23 17:40 01/12/23 08:46 Labs: Laboratory Results - last 48 hr 01/12/23 01/13/23 01/14/23 10:50 08:05 08:04 POC Glucose 121 H 102 94 Medications Medications Current Medications Acetaminophen (Acetaminophen 325 Mg Tablet) 650 mg PO Q6H PRN PRN Reason: Headache/Pain Mild Scale (1-3) Last Admin: 01/12/23 22:13 Dose: 650 mg Al Hydroxide/Mg Hydroxide (Magnesium Hydrox/Alum Hydrox 30 Ml Oral.Susp) 30 ml PO Q6H PRN PRN Reason: Heartburn/Nausea Last Admin: 01/05/23 11:31 Dose: 30 ml Clozapine (Clozapine 100 Mg Tablet) 300 mg PO BEDTIME KRISTIN Last Admin: 01/13/23 20:30 Dose: 300 mg Hydroxyzine HCl (Hydroxyzine Hcl 25 Mg Tablet) 25 mg PO Q6H PRN PRN Reason: Anxiety Magnesium Hydroxide (Milk Of Magnesia 30 Ml Oral.Susp) 30 ml PO DAILY PRN PRN Reason: Constipation Metformin HCl (Metformin Hcl Er 500 Mg Tab.Er.24h) 500 mg PO DAILY [facility] Last Admin: 01/14/23 08:21 Dose: 500 mg Nicotine Polacrilex (Nicotine Polacrilex 2 Mg Gum) 4 mg BUCCAL Q2H PRN PRN Reason: Nicotine Cravings Senna/Docusate Sodium (Sennosides/Docusate Sodium Tablet) 2 tab PO BID [facility] Last Admin: 01/14/23 08:21 Dose: 2 tab Sertraline HCl (Sertraline Hcl 100 Mg Tablet) 100 mg PO DAILY [facility] Last Admin: 01/14/23 08:21 Dose: 100 mg Tamsulosin HCl (Tamsulosin Hcl 0.4 Mg Capsule) 0.4 mg PO DAILY [facility] Last Admin: 01/14/23 08:21 Dose: 0.4 mg Trazodone HCl (Trazodone Hcl 50 Mg Tablet) 50 mg PO BEDTIME MRX1 PRN PRN Reason: Insomnia Last Admin: 01/10/23 19:53 Dose: 50 mg Allergies Allergies Allergy/AdvReac Type Severity Reaction Status Date / Time No Known Allergies [NKA] Allergy Unknown NONE Verified 12/21/22 09:41 Assessment & Plan Assessment & Plan (1) Schizoaffective disorder, depressive type: Status: Acute Code(s): F25.1 - Schizoaffective disorder, depressive type Plan 01/04: continue outpt medications regimen for now. recent onset of mvmts which appear c/w EPS; unclear why movements have begun. trend Sx. T/C ECT if indicated; pt has h/o ECT with some response. 01/05- pt reports hearing voices, taking clozaril. will check clozaril level. decrease sertraline as it worsens psychosis. order bladder scan POST VOID, may need straigh cath if PVR>300ml. sennakot BID. Pt appears with chest congestion, excessive secretions. 01/06: continue current mgmt. IVM have resolved. T/C anti-ACh agent if sialorrhea continues. declines ECT at present. feels changed from admission, unable to express in what way. 01/08: no changes 01/09: says he is depressed, expresses interest in ECT. consult [facility] and obtain medical clearance. continue current medication. 01/10: medically cleared for ECT. seen by [facility]; awaiting go-ahead from [facility] for ECT. continue current medications for now. stable presentation, depressed and severely PMR. 01/11: continue current mgmt. ECT to start monday. slightly faster responses today. 01/12: slower today, no substantial change in past couple of days. ECT tomorrow morning. 01/13: ECY #1 completed this morning. no negative events. continue current mgmt. ECT #2 monday. 01/14 Tolerated 1st ECT bitemporally continue plan of care on a decreased dose of lorazepam Patient educated on: diagnosis and ECT Informed Consent: understands Reason for continued inpatient stay Substantial Risk for: inability to function and rapid decompensation Time Spent With Patient Time: Total time managing care of this patient today ____ minutes.
[2023-01-14 20:21] VITALS: BP 113/70; PULSE 79; RESP 16; TEMP 36.7; O2SAT 98
[2023-01-14] MEDS: cloZAPine 100 MG TABLET 300 MG PO (21:02)
[2023-01-15 08:14] LABS: Glucose, Whole Blood 94 mg/dL (60-115)
[2023-01-15] MEDS: Tamsulosin HCL 0.4 MG CAPSULE PO (08:30)
[2023-01-15] MEDS: Sennosides/Docusate Sodium TABLET 2 TAB PO ×2 (08:30→20:45)
[2023-01-15] MEDS: metFORMIN HCl ER 500 MG TAB.ER.24H PO (08:30)
[2023-01-15] MEDS: LORazepam 1 MG TABLET PO ×2 (08:30→15:33)
[2023-01-15] MEDS: Sertraline HCL 100 MG TABLET PO (08:30)
[2023-01-15 08:53] VITALS: BP 108/71; PULSE 71; RESP 20; TEMP 36.3; O2SAT 96
--- NOTE | 2023-01-15 16:03 | HO.PSYCHPN ---
Subjective Subjective Date of Service: 01/15/23 Reason For Visit: Psychosis Subjective Notes: Conditional Voluntary Guardianship: No Medication Compliance: Yes Attending Groups: Intermittent Review of Systems Acute medical concerns: No Medical Review of Systems: unchanged Mental Status Exam Mental Status Exam Narrative: Appearance: Behavior: cooperative Psychomotor: retardation Speech: soft, slowed hesitant TP: linear TC: no delusions or paranoia expressed Affect: constricted, flat mood: depressed SI: none expressed HI: none expressed VH/AH: pos Insight/judgment: fair x 2. Memory/cog: alert, oriented x 3. Diagnostics Vital Signs (24Hr): Vital Signs - 24 hr 01/14/23 20:21 01/15/23 08:53 Temperature 98.0 F 97.4 F Pulse Rate 79 71 Respiratory Rate 16 20 Blood Pressure 113/70 108/71 Pulse Oximetry 98 96 Oxygen Delivery Method Room Air Room Air BMI result Body Mass Index 30.1 Labs 01/03/23 17:40 01/12/23 08:46 Labs: Laboratory Results - last 48 hr 01/14/23 01/15/23 08:04 08:05 POC Glucose 94 94 Medications Medications Current Medications Acetaminophen (Acetaminophen 325 Mg Tablet) 650 mg PO Q6H PRN PRN Reason: Headache/Pain Mild Scale (1-3) Last Admin: 01/12/23 22:13 Dose: 650 mg Al Hydroxide/Mg Hydroxide (Magnesium Hydrox/Alum Hydrox 30 Ml Oral.Susp) 30 ml PO Q6H PRN PRN Reason: Heartburn/Nausea Last Admin: 01/05/23 11:31 Dose: 30 ml Clozapine (Clozapine 100 Mg Tablet) 300 mg PO BEDTIME [facility] Last Admin: 01/14/23 21:02 Dose: 300 mg Hydroxyzine HCl (Hydroxyzine Hcl 25 Mg Tablet) 25 mg PO Q6H PRN PRN Reason: Anxiety Lorazepam (Lorazepam 1 Mg Tablet) 1 mg PO TID [facility] Last Admin: 01/15/23 15:33 Dose: 1 mg Magnesium Hydroxide (Milk Of Magnesia 30 Ml Oral.Susp) 30 ml PO DAILY PRN PRN Reason: Constipation Metformin HCl (Metformin Hcl Er 500 Mg Tab.Er.24h) 500 mg PO DAILY [facility] Last Admin: 01/15/23 08:30 Dose: 500 mg Nicotine Polacrilex (Nicotine Polacrilex 2 Mg Gum) 4 mg BUCCAL Q2H PRN PRN Reason: Nicotine Cravings Senna/Docusate Sodium (Sennosides/Docusate Sodium Tablet) 2 tab PO BID [facility] Last Admin: 01/15/23 08:30 Dose: 2 tab Sertraline HCl (Sertraline Hcl 100 Mg Tablet) 100 mg PO DAILY [facility] Last Admin: 01/15/23 08:30 Dose: 100 mg Tamsulosin HCl (Tamsulosin Hcl 0.4 Mg Capsule) 0.4 mg PO DAILY [facility] Last Admin: 01/15/23 08:30 Dose: 0.4 mg Trazodone HCl (Trazodone Hcl 50 Mg Tablet) 50 mg PO BEDTIME MRX1 PRN PRN Reason: Insomnia Last Admin: 01/10/23 19:53 Dose: 50 mg Allergies Allergies Allergy/AdvReac Type Severity Reaction Status Date / Time No Known Allergies [NKA] Allergy Unknown NONE Verified 12/21/22 09:41 Assessment & Plan Assessment & Plan (1) Schizoaffective disorder, depressive type: Status: Acute Code(s): F25.1 - Schizoaffective disorder, depressive type Plan 01/04: continue outpt medications regimen for now. recent onset of mvmts which appear c/w EPS; unclear why movements have begun. trend Sx. T/C ECT if indicated; pt has h/o ECT with some response. 01/05- pt reports hearing voices, taking clozaril. will check clozaril level. decrease sertraline as it worsens psychosis. order bladder scan POST VOID, may need straigh cath if PVR>300ml. sennakot BID. Pt appears with chest congestion, excessive secretions. 01/06: continue current mgmt. IVM have resolved. T/C anti-ACh agent if sialorrhea continues. declines ECT at present. feels changed from admission, unable to express in what way. 01/08: no changes 01/09: says he is depressed, expresses interest in ECT. consult [facility] and obtain medical clearance. continue current medication. 01/10: medically cleared for ECT. seen by [facility]; awaiting go-ahead from [facility] for ECT. continue current medications for now. stable presentation, depressed and severely PMR. 01/11: continue current mgmt. ECT to start monday. slightly faster responses today. 01/12: slower today, no substantial change in past couple of days. ECT tomorrow morning. 01/13: ECY #1 completed this morning. no negative events. continue current mgmt. ECT #2 monday. 01/14 Tolerated 1st ECT bitemporally continue plan of care on a decreased dose of lorazepam 01/15/2023 Continue ECT try and limit lorazepam but if needed may need to increase does cannot was reversed with flumazenil Patient educated on: ECT Informed Consent: further education needed Reason for continued inpatient stay Substantial Risk for: inability to function, rapid decompensation and med/psych decompensation Time Spent With Patient Time: Total time managing care of this patient today ____ minutes.
[2023-01-15 19:37] VITALS: BP 133/72; PULSE 80; RESP 16; TEMP 36.4; O2SAT 99
[2023-01-15] MEDS: cloZAPine 100 MG TABLET 300 MG PO (20:45)
[2023-01-16] VITALS (9 sets, daily range): BP systolic 120–154; BP diastolic 59–90; PULSE 68–94; RESP 14–20; TEMP 36.1–36.4; O2SAT 95–98
[2023-01-16 06:13] LABS: Glucose, Whole Blood 100 mg/dL (60-115)
--- NOTE | 2023-01-16 07:02 | MHC.SHP ---
Pre-Procedural Eval Section A Date of Service: 01/16/23 The patient is an INPATIENT: Yes Changes since office visit: No Cold of Flu in the past 2 weeks, No New Medical Problems, No Changes in Medication and No Patient answered all questions The History & Physical has been completed within 30 days and I have reviewed it.: Yes Section B Chief Complaint: Psychosis Allergies: Allergies Allergy/AdvReac Type Severity Reaction Status Date / Time No Known Allergies [NKA] Allergy Unknown NONE Verified 12/21/22 09:41 Plan I have reviewed the history and physical and performed a pertinent physical examination on my patient. No changes have occurred unless specified. Time Spent With Patient Time: Total time managing care of this patient today ____ minutes.
--- NOTE | 2023-01-16 07:42 | HO.ANESPROP2 ---
[facility] Active Problems Active Problems: All Active Problems (Updated 01/09/23 @ 21:06 by ALEC Agustin) Routine medical exam (Acute) Schizoaffective disorder, depressive type (Acute) Schizophrenia, catatonic (Acute) Mild sleep apnea (Acute) Nocturnal hypoxia (Acute) Joint inflammation of right hand and wrist (Acute) Cough (Acute) Benign prostate hyperplasia (Acute) Adult general medical exam (Acute) Essential hypertension (Acute) Right hip pain (Acute) Status post fall (Acute) Screening for colon cancer (Acute) Screening for prostate cancer (Acute) Essential (primary) hypertension (Acute) Diabetes mellitus (Acute) Past Medical History Medical History Schizophrenia, catatonic BPH (benign prostatic hyperplasia) Screening for colon cancer Screening for prostate cancer Essential (primary) hypertension Diabetes mellitus Family History Family History Mother Cancer Father Kidney agenesis Family history of problems with anesthesia: No Surgical History Surgical History History of colonoscopy History of tooth extraction History of root canal procedure History of Problems with Anesthesia: No Social History Social History Household Members: None Housing: Apartment Do you presently have visiting nurse or other home services: Yes ([facility]) Alcohol intake: never Patient Tobacco Use Status: Never used Tobacco Smoked in Last 30 Days: No e-Cigarette/Vaping Use: Never Used Second Hand Smoke Exposure: No Use of substances other than those prescribed or required for medical reasons: No Currently Displaying Signs/Symptoms of Drug Intoxication Withdrawal: No Any prior treatment program specific to substance use: No Have you been hit, kicked, punched, or otherwise hurt by someone within the past year? If so, by whom?: No Do you feel safe in your current relationship?: No Current Relationship Is there a partner from a previous relationship who is making you feel unsafe now?: No Are you made to feel afraid or neglected: No Advance Directives: No Advance Directives Information Provided: No Do you have thoughts of harming others: None Do you have a plan to hurt others: No Plan Recently lost weight without trying: Unsure Poor oral hygiene: No service: No Current occupational status: employed Sexual orientation: Unable to collect Cognitive needs: No Hearing needs: No Vision needs: No Meds Allergies Allergy/AdvReac Type Severity Reaction Status Date / Time No Known Allergies [NKA] Allergy Unknown NONE Verified 12/21/22 09:41 Active Medications: Current Medications Acetaminophen (Acetaminophen 325 Mg Tablet) 650 mg PO Q6H PRN PRN Reason: Headache/Pain Mild Scale (1-3) Last Admin: 01/12/23 22:13 Dose: 650 mg Al Hydroxide/Mg Hydroxide (Magnesium Hydrox/Alum Hydrox 30 Ml Oral.Susp) 30 ml PO Q6H PRN PRN Reason: Heartburn/Nausea Last Admin: 01/05/23 11:31 Dose: 30 ml Clozapine (Clozapine 100 Mg Tablet) 300 mg PO BEDTIME [facility] Last Admin: 01/15/23 20:45 Dose: 300 mg Hydroxyzine HCl (Hydroxyzine Hcl 25 Mg Tablet) 25 mg PO Q6H PRN PRN Reason: Anxiety Lactated Ringer's (Lr) 1,000 mls @ 50 mls/hr IVCONT .Q20H KRISTIN Lorazepam (Lorazepam 1 Mg Tablet) 1 mg PO TID [facility] Last Admin: 01/15/23 20:10 Dose: Not Given Magnesium Hydroxide (Milk Of Magnesia 30 Ml Oral.Susp) 30 ml PO DAILY PRN PRN Reason: Constipation Metformin HCl (Metformin Hcl Er 500 Mg Tab.Er.24h) 500 mg PO DAILY [facility] Last Admin: 01/15/23 08:30 Dose: 500 mg Nicotine Polacrilex (Nicotine Polacrilex 2 Mg Gum) 4 mg BUCCAL Q2H PRN PRN Reason: Nicotine Cravings Senna/Docusate Sodium (Sennosides/Docusate Sodium Tablet) 2 tab PO BID [facility] Last Admin: 01/15/23 20:45 Dose: 2 tab Sertraline HCl (Sertraline Hcl 100 Mg Tablet) 100 mg PO DAILY [facility] Last Admin: 01/15/23 08:30 Dose: 100 mg Tamsulosin HCl (Tamsulosin Hcl 0.4 Mg Capsule) 0.4 mg PO DAILY [facility] Last Admin: 01/15/23 08:30 Dose: 0.4 mg Trazodone HCl (Trazodone Hcl 50 Mg Tablet) 50 mg PO BEDTIME MRX1 PRN PRN Reason: Insomnia Last Admin: 01/10/23 19:53 Dose: 50 mg Home Medications Medication Instructions Recorded Confirmed Last Taken Type lancets 28 gauge (FreeStyle 01/04/23 01/04/23 Unknown History Lancets) tamsulosin 0.4 mg capsule 0.4 mg PO DAILY 01/04/23 01/04/23 01/02/23 17:00 History Exam Exam Date and Time: January 16, 2023 0742 Height,Weight and Vital Signs: Height 5 ft 10 in Weight 95.148 kg Last Vital Signs Temp 97.6 F 01/16/23 06:44 Pulse 68 01/16/23 06:44 Resp 14 01/16/23 06:44 BP 130/80 01/16/23 06:44 Pulse Ox 95 01/16/23 06:44 O2 Del Method Room Air 01/16/23 06:44 O2 Flow Rate 52 01/13/23 11:00 Pertinent Lab Results Pertinent Lab Results: Laboratory Tests 01/03/23 01/04/23 01/04/23 17:40 00:55 10:38 WBC 7.8 RBC 4.42 L Hgb 12.7 L Hct 40.1 L MCV 90.7 MCH 28.7 MCHC 31.7 RDW 13.2 Plt Count 166 MPV 11.0 Immature Gran % (Auto) 0.5 H Neut % (Auto) 71.4 Lymph % (Auto) 20.7 Cherry % (Auto) 7.4 Eos % (Auto) 0.0 Baso % (Auto) 0.0 Lymph # (Auto) 1.6 Cherry # (Auto) 0.6 Eos # (Auto) 0.0 Baso # (Auto) 0.0 Abs Immat Gran (auto) 0.04 H Absolute Neuts (auto) 5.6 Absolute Nucleated RBC 0.000 Nucleated RBC % (auto) 0.0 Sodium 140 Potassium 4.1 Chloride 105 Carbon Dioxide 25 Anion Gap 14 BUN 19 H Creatinine 1.35 Estim Creat Clear Calc 65.9 Estimated GFR 54 POC Glucose 108 Random Glucose 87 Calcium 9.5 D Magnesium 2.1 Total Bilirubin 0.5 Direct Bilirubin 0.2 AST 12 ALT 6 Alkaline Phosphatase 59 Total Protein 7.2 Albumin 4.2 Urine Color Yellow Urine Appearance Clear Urine pH 6.5 Ur Specific [place] 1.015 Urine Protein Negative Urine Glucose (UA) Negative Urine Ketones Negative Urine Blood Negative Urine Nitrite Negative Ur Leukocyte Esterase Negative Urine Opiates Screen Not Detected Urine Fentanyl Screen Not Detected Ur Barbiturates Screen Not Detected Ur Phencyclidine Scrn Not Detected Ur Amphetamines Screen Not Detected U Benzodiazepines Scrn Not Detected [place] 0.72 Urine Cocaine Screen Not Detected U Marijuana (THC) Screen Not Detected Ethyl Alcohol < 10 COVID-19 ([facility]) Negative COVID-[employer] [employer] See Note 01/05/23 01/05/23 01/05/23 08:23 08:36 13:38 WBC RBC Hgb Hct MCV MCH MCHC RDW Plt Count MPV Immature Gran % (Auto) Neut % (Auto) Lymph % (Auto) Cherry % (Auto) Eos % (Auto) Baso % (Auto) Lymph # (Auto) Cherry # (Auto) Eos # (Auto) Baso # (Auto) Abs Immat Gran (auto) Absolute Neuts (auto) Absolute Nucleated RBC Nucleated RBC % (auto) Sodium 141 Potassium 4.0 Chloride 105 Carbon Dioxide 28 Anion Gap 12 BUN 24 H Creatinine 1.39 Estim Creat Clear Calc 64.0 Estimated GFR 52 POC Glucose 107 Random Glucose 120 H Calcium 9.5 Magnesium Total Bilirubin 0.5 Direct Bilirubin AST 9 ALT < 5 Alkaline Phosphatase 57 Total Protein 6.8 Albumin 4.0 Urine Color Urine Appearance Urine pH Ur Specific [place] Urine Protein Urine Glucose (UA) Urine Ketones Urine Blood Urine Nitrite Ur Leukocyte Esterase Urine Opiates Screen Urine Fentanyl Screen Ur Barbiturates Screen Ur Phencyclidine Scrn Ur Amphetamines Screen U Benzodiazepines Scrn [place] 0.85 Urine Cocaine Screen U Marijuana (THC) Screen Ethyl Alcohol COVID-19 ([facility]) COVID-[facility] [employer] 01/06/23 01/07/23 01/08/23 07:43 08:13 08:02 WBC RBC Hgb Hct MCV MCH MCHC RDW Plt Count MPV Immature Gran % (Auto) Neut % (Auto) Lymph % (Auto) Cherry % (Auto) Eos % (Auto) Baso % (Auto) Lymph # (Auto) Cherry # (Auto) Eos # (Auto) Baso # (Auto) Abs Immat Gran (auto) Absolute Neuts (auto) Absolute Nucleated RBC Nucleated RBC % (auto) Sodium Potassium Chloride Carbon Dioxide Anion Gap BUN Creatinine Estim Creat Clear Calc Estimated GFR POC Glucose 112 102 96 Random Glucose Calcium Magnesium Total Bilirubin Direct Bilirubin AST ALT Alkaline Phosphatase Total Protein Albumin Urine Color Urine Appearance Urine pH Ur Specific [place] Urine Protein Urine Glucose (UA) Urine Ketones Urine Blood Urine Nitrite Ur Leukocyte Esterase Urine Opiates Screen Urine Fentanyl Screen Ur Barbiturates Screen Ur Phencyclidine Scrn Ur Amphetamines Screen U Benzodiazepines Scrn [place] Urine Cocaine Screen U Marijuana (THC) Screen Ethyl Alcohol COVID-19 ([facility]) COVID-19 depict 01/09/23 01/10/23 01/10/23 07:54 07:49 08:01 WBC RBC Hgb Hct MCV MCH MCHC RDW Plt Count MPV Immature Gran % (Auto) Neut % (Auto) Lymph % (Auto) Cherry % (Auto) Eos % (Auto) Baso % (Auto) Lymph # (Auto) Cherry # (Auto) Eos # (Auto) Baso # (Auto) Abs Immat Gran (auto) Absolute Neuts (auto) 4.7 Absolute Nucleated RBC Nucleated RBC % (auto) Sodium Potassium Chloride Carbon Dioxide Anion Gap BUN Creatinine Estim Creat Clear Calc Estimated GFR POC Glucose 108 101 Random Glucose Calcium Magnesium Total Bilirubin Direct Bilirubin AST ALT Alkaline Phosphatase Total Protein Albumin Urine Color Urine Appearance Urine pH Ur Specific [place] Urine Protein Urine Glucose (UA) Urine Ketones Urine Blood Urine Nitrite Ur Leukocyte Esterase Urine Opiates Screen Urine Fentanyl Screen Ur Barbiturates Screen Ur Phencyclidine Scrn Ur Amphetamines Screen U Benzodiazepines Scrn [place] Urine Cocaine Screen U Marijuana (THC) Screen Ethyl Alcohol COVID-19 ([facility]) COVID-19 depict 01/11/23 01/12/23 01/12/23 08:27 08:46 10:50 WBC RBC Hgb Hct MCV MCH MCHC RDW Plt Count MPV Immature Gran % (Auto) Neut % (Auto) Lymph % (Auto) Cherry % (Auto) Eos % (Auto) Baso % (Auto) Lymph # (Auto) Cherry # (Auto) Eos # (Auto) Baso # (Auto) Abs Immat Gran (auto) Absolute Neuts (auto) Absolute Nucleated RBC Nucleated RBC % (auto) Sodium Potassium Chloride Carbon Dioxide Anion Gap BUN Creatinine 1.20 Estim Creat Clear Calc 76.7 Estimated GFR > 60 POC Glucose 94 121 H Random Glucose Calcium Magnesium Total Bilirubin Direct Bilirubin AST ALT Alkaline Phosphatase Total Protein Albumin Urine Color Urine Appearance Urine pH Ur Specific [place] Urine Protein Urine Glucose (UA) Urine Ketones Urine Blood Urine Nitrite Ur Leukocyte Esterase Urine Opiates Screen Urine Fentanyl Screen Ur Barbiturates Screen Ur Phencyclidine Scrn Ur Amphetamines Screen U Benzodiazepines Scrn [place] Urine Cocaine Screen U Marijuana (THC) Screen Ethyl Alcohol COVID-19 ([facility]) COVID-19 [employer] 01/13/23 01/14/23 01/15/23 08:05 08:04 08:05 WBC RBC Hgb Hct MCV MCH MCHC RDW Plt Count MPV Immature Gran % (Auto) Neut % (Auto) Lymph % (Auto) Cherry % (Auto) Eos % (Auto) Baso % (Auto) Lymph # (Auto) Cherry # (Auto) Eos # (Auto) Baso # (Auto) Abs Immat Gran (auto) Absolute Neuts (auto) Absolute Nucleated RBC Nucleated RBC % (auto) Sodium Potassium Chloride Carbon Dioxide Anion Gap BUN Creatinine Estim Creat Clear Calc Estimated GFR POC Glucose 102 94 94 Random Glucose Calcium Magnesium Total Bilirubin Direct Bilirubin AST ALT Alkaline Phosphatase Total Protein Albumin Urine Color Urine Appearance Urine pH Ur Specific [place] Urine Protein Urine Glucose (UA) Urine Ketones Urine Blood Urine Nitrite Ur Leukocyte Esterase Urine Opiates Screen Urine Fentanyl Screen Ur Barbiturates Screen Ur Phencyclidine Scrn Ur Amphetamines Screen U Benzodiazepines Scrn [place] Urine Cocaine Screen U Marijuana (THC) Screen Ethyl Alcohol COVID-19 ([facility]) COVID-19 [employer] 01/16/23 06:07 WBC RBC Hgb Hct MCV MCH MCHC RDW Plt Count MPV Immature Gran % (Auto) Neut % (Auto) Lymph % (Auto) Cherry % (Auto) Eos % (Auto) Baso % (Auto) Lymph # (Auto) Cherry # (Auto) Eos # (Auto) Baso # (Auto) Abs Immat Gran (auto) Absolute Neuts (auto) Absolute Nucleated RBC Nucleated RBC % (auto) Sodium Potassium Chloride Carbon Dioxide Anion Gap BUN Creatinine Estim Creat Clear Calc Estimated GFR POC Glucose 100 Random Glucose Calcium Magnesium Total Bilirubin Direct Bilirubin AST ALT Alkaline Phosphatase Total Protein Albumin Urine Color Urine Appearance Urine pH Ur Specific [place] Urine Protein Urine Glucose (UA) Urine Ketones Urine Blood Urine Nitrite Ur Leukocyte Esterase Urine Opiates Screen Urine Fentanyl Screen Ur Barbiturates Screen Ur Phencyclidine Scrn Ur Amphetamines Screen U Benzodiazepines Scrn [place] Urine Cocaine Screen U Marijuana (THC) Screen Ethyl Alcohol COVID-19 ([facility]) COVID-19 Clin Com Airway Mallampati Class: II TM Dist: >3cm Neck ROM: Full Denture: Upper Heart: rrr Lungs: cta Assessment and Plan Assessment Anesthesia Assessment: Anesthesia Plan Discussed and Chart Reviewed Final Anesthetic Review Family History of Problems with Anesthesia: No History of Problems with Anesthesia: No NPO: Yes ASA Class: III Final Preanesthetic Review: No Changes in Pt Med Stat, Meds/Allgs Chart Reviewed and Consent Obtained/Reviewed Patient Risk: Intermediate Procedure Risk: Intermediate Anesthetic Plan Anesthetic Plan: GA Disposition: Standard PACU
--- NOTE | 2023-01-16 08:03 | HO.ECTPROC ---
ECT Procedure Note Diagnosis/Treatment Date of Service: 01/16/23 Diagnosis: Schizoaffective Disorder Previous ECT Date: 01/13/23 Current Treatment Number: 2 Treatment: Series Interval Clinical Notes: The patient was very sleepy, awaken with verbal stimuli, looks despondent, denies side effects with previous ECT. Bitemporal ECT tamiko as previous procedure, still dyphoric. No complications with the procedure. Time: Total time managing care of this patient today __30__ minutes. ECT Settings Device: THYMATRON DGx Electrode Placement: Bitemporal Program/Pulse Width: 0.50 Energy Percent: 100 Seizure Duration By EEG (in seconds): 35 By Motor Observation (in seconds): 21 Medications Administration General Anesthetic: Etomidate (16) Muscle Relaxant: Succinylcholine (00) Ancillary Medications Analgesics: Torodol - Pre ECT Anti-emetics: Zofran - Pre ECT Airway Management Airway Management: Bag Mask Ventilation Treatment Recommendations No Changes Recommended: No change Pt Tolerated Procedure w/o Issue: Yes
[2023-01-16] MEDS: LORazepam 1 MG TABLET PO ×3 (09:27→22:22)
[2023-01-16] MEDS: Sertraline HCL 100 MG TABLET PO (09:28)
[2023-01-16] MEDS: Sennosides/Docusate Sodium TABLET 2 TAB PO ×2 (09:28→22:22)
[2023-01-16] MEDS: metFORMIN HCl ER 500 MG TAB.ER.24H PO (09:28)
[2023-01-16] MEDS: Tamsulosin HCL 0.4 MG CAPSULE PO (09:29)
--- NOTE | 2023-01-16 15:18 | HO.PSYCHPN ---
Subjective Subjective Date of Service: 01/16/23 Reason For Visit: Psychosis Interim History: calm, cooperative. remains with PMR, but faster responses than earlier in stay. per staff, had a good w/e. spontaneous speech over w/e. watching some TV. eating well, reg. diet. sleeping well. good ADLs. Mental Status Exam Mental Status Exam Narrative: Appearance: wearing hospital clothes, fair eye contact, in NAD Behavior: cooperative Psychomotor: retardation Speech: soft, muffled, terse, non-spontaneous TP: linear TC: no delusions or paranoia expressed Affect: constricted, hypo-intense mood: anxious, fluctuating SI: none expressed HI: none expressed VH/AH: none expressed Insight/judgment: fair x 2. Memory/cog: alert, oriented x 3. Diagnostics Vital Signs (24Hr): Vital Signs - 24 hr 01/15/23 19:37 01/16/23 06:15 01/16/23 06:44 Temperature 97.5 F 97.0 F 97.6 F Pulse Rate 80 72 68 Respiratory Rate 16 18 14 Blood Pressure 133/72 130/80 130/80 Pulse Oximetry 99 98 95 Oxygen Delivery Method Room Air Room Air Oxygen Flow Rate 01/16/23 08:30 01/16/23 08:35 01/16/23 08:40 Temperature 97.3 F Pulse Rate 80 94 94 Respiratory Rate 16 15 15 Blood Pressure 143/83 H 154/88 H 148/89 H Pulse Oximetry 97 96 98 Oxygen Delivery Method Nasal Cannula Nasal Cannula Nasal Cannula Oxygen Flow Rate 2 2 2 01/16/23 08:45 01/16/23 09:01 01/16/23 09:15 Temperature 97.3 F 97.0 F Pulse Rate 92 86 88 Respiratory Rate 15 15 20 Blood Pressure 151/90 H 146/85 H 127/74 Pulse Oximetry 95 95 98 Oxygen Delivery Method Room Air Room Air Oxygen Flow Rate 2 BMI result Body Mass Index 30.1 Labs 01/03/23 17:40 01/12/23 08:46 Labs: Laboratory Results - last 48 hr 01/15/23 01/16/23 08:05 06:07 POC Glucose 94 100 Medications Medications Current Medications Acetaminophen (Acetaminophen 325 Mg Tablet) 650 mg PO Q6H PRN PRN Reason: Headache/Pain Mild Scale (1-3) Last Admin: 01/12/23 22:13 Dose: 650 mg Al Hydroxide/Mg Hydroxide (Magnesium Hydrox/Alum Hydrox 30 Ml Oral.Susp) 30 ml PO Q6H PRN PRN Reason: Heartburn/Nausea Last Admin: 01/05/23 11:31 Dose: 30 ml Clozapine (Clozapine 100 Mg Tablet) 300 mg PO BEDTIME [facility] Last Admin: 01/15/23 20:45 Dose: 300 mg Hydroxyzine HCl (Hydroxyzine Hcl 25 Mg Tablet) 25 mg PO Q6H PRN PRN Reason: Anxiety Lorazepam (Lorazepam 1 Mg Tablet) 1 mg PO TID [facility] Last Admin: 01/16/23 14:38 Dose: 1 mg Magnesium Hydroxide (Milk Of Magnesia 30 Ml Oral.Susp) 30 ml PO DAILY PRN PRN Reason: Constipation Metformin HCl (Metformin Hcl Er 500 Mg Tab.Er.24h) 500 mg PO DAILY [facility] Last Admin: 01/16/23 09:28 Dose: 500 mg Nicotine Polacrilex (Nicotine Polacrilex 2 Mg Gum) 4 mg BUCCAL Q2H PRN PRN Reason: Nicotine Cravings Senna/Docusate Sodium (Sennosides/Docusate Sodium Tablet) 2 tab PO BID [facility] Last Admin: 01/16/23 09:28 Dose: 2 tab Sertraline HCl (Sertraline Hcl 100 Mg Tablet) 100 mg PO DAILY [facility] Last Admin: 01/16/23 09:28 Dose: 100 mg Tamsulosin HCl (Tamsulosin Hcl 0.4 Mg Capsule) 0.4 mg PO DAILY [facility] Last Admin: 01/16/23 09:29 Dose: 0.4 mg Trazodone HCl (Trazodone Hcl 50 Mg Tablet) 50 mg PO BEDTIME MRX1 PRN PRN Reason: Insomnia Last Admin: 01/10/23 19:53 Dose: 50 mg Allergies Allergies Allergy/AdvReac Type Severity Reaction Status Date / Time No Known Allergies [NKA] Allergy Unknown NONE Verified 12/21/22 09:41 Assessment & Plan Assessment & Plan (1) Schizoaffective disorder, depressive type: Status: Acute Code(s): F25.1 - Schizoaffective disorder, depressive type Plan 01/04: continue outpt medications regimen for now. recent onset of mvmts which appear c/w EPS; unclear why movements have begun. trend Sx. T/C ECT if indicated; pt has h/o ECT with some response. 01/05- pt reports hearing voices, taking clozaril. will check clozaril level. decrease sertraline as it worsens psychosis. order bladder scan POST VOID, may need straigh cath if PVR>300ml. sennakot BID. Pt appears with chest congestion, excessive secretions. 01/06: continue current mgmt. IVM have resolved. T/C anti-ACh agent if sialorrhea continues. declines ECT at present. feels changed from admission, unable to express in what way. 01/08: no changes 01/09: says he is depressed, expresses interest in ECT. consult [place] and obtain medical clearance. continue current medication. 01/10: medically cleared for ECT. seen by [facility]; awaiting go-ahead from [place] for ECT. continue current medications for now. stable presentation, depressed and severely PMR. 01/11: continue current mgmt. ECT to start monday. slightly faster responses today. 01/12: slower today, no substantial change in past couple of days. ECT tomorrow morning. 01/13: ECY #1 completed this morning. no negative events. continue current mgmt. ECT #2 monday. 01/14: Tolerated 1st ECT bitemporally continue plan of care on a decreased dose of lorazepam 01/15: Continue ECT try and limit lorazepam but if needed may need to increase does cannot was reversed with flumazenil. 01/16: tolerated ECT #2 today. slowed from weekend. continue current mgmt. Reason for continued inpatient stay Substantial Risk for: inability to function and rapid decompensation Time Spent With Patient Time: Total time managing care of this patient today __25__ minutes.
[2023-01-16] MEDS: cloZAPine 100 MG TABLET 300 MG PO (22:21)
[2023-01-17 08:03] LABS: Glucose, Whole Blood 94 mg/dL (60-115)
[2023-01-17 08:33] LABS: Neut%MD 66.1 %; Neutrophils Absolute Auto 3.6 x10*3/uL (2.0-8.3); WBCANC 5.4 X10*3/uL
[2023-01-17 08:39] VITALS: BP 126/69; PULSE 80; RESP 16; TEMP 36.6; O2SAT 99
[2023-01-17] MEDS: LORazepam 1 MG TABLET PO ×2 (08:41→15:20)
[2023-01-17] MEDS: metFORMIN HCl ER 500 MG TAB.ER.24H PO (08:41)
[2023-01-17] MEDS: Sennosides/Docusate Sodium TABLET 2 TAB PO ×2 (08:41→20:22)
[2023-01-17] MEDS: Tamsulosin HCL 0.4 MG CAPSULE PO (08:41)
[2023-01-17] MEDS: Sertraline HCL 100 MG TABLET PO (08:41)
--- NOTE | 2023-01-17 14:03 | P.PNPSI_ITS ---
Subjective Subjective Date of Service: 01/17/23 Reason For Visit: Psychosis Interim History: clearly faster responses today, able to ambulate a bit on the unit, observed in the milieu for the first time by this radio news writer. no complaints or requests. per staff, some PMR. dep 4 anx 7. no SI/HI/AVH. slept well overnight. Mental Status Exam Mental Status Exam Narrative: Appearance: wearing street clothes, fair eye contact, in NAD Behavior: cooperative Psychomotor: retardation, less than previous Speech: soft, terse, non-spontaneous TP: linear TC: no delusions or paranoia expressed Affect: constricted, hypo-intense mood: anxious SI: none expressed HI: none expressed VH/AH: none expressed Insight/judgment: fair x 2. Memory/cog: alert, oriented x 3. Diagnostics Vital Signs (24Hr): Vital Signs - 24 hr 01/16/23 19:23 01/17/23 08:39 Temperature 97.5 F 97.9 F Pulse Rate 76 80 Respiratory Rate 16 16 Blood Pressure 120/59 L 126/69 Pulse Oximetry 96 99 Oxygen Delivery Method Room Air Room Air BMI result Body Mass Index 30.1 Labs 01/03/23 17:40 01/12/23 08:46 Labs: Laboratory Results - last 48 hr 01/16/23 01/17/23 01/17/23 06:07 07:59 08:10 Absolute Neuts (auto) 3.6 POC Glucose 100 94 Medications Medications Current Medications Acetaminophen (Acetaminophen 325 Mg Tablet) 650 mg PO Q6H PRN PRN Reason: Headache/Pain Mild Scale (1-3) Last Admin: 01/12/23 22:13 Dose: 650 mg Al Hydroxide/Mg Hydroxide (Magnesium Hydrox/Alum Hydrox 30 Ml Oral.Susp) 30 ml PO Q6H PRN PRN Reason: Heartburn/Nausea Last Admin: 01/05/23 11:31 Dose: 30 ml Clozapine (Clozapine 100 Mg Tablet) 300 mg PO BEDTIME [facility] Last Admin: 01/16/23 22:21 Dose: 300 mg Hydroxyzine HCl (Hydroxyzine Hcl 25 Mg Tablet) 25 mg PO Q6H PRN PRN Reason: Anxiety Lorazepam (Lorazepam 1 Mg Tablet) 1 mg PO TID [facility] Last Admin: 01/17/23 08:41 Dose: 1 mg Magnesium Hydroxide (Milk Of Magnesia 30 Ml Oral.Susp) 30 ml PO DAILY PRN PRN Reason: Constipation Metformin HCl (Metformin Hcl Er 500 Mg Tab.Er.24h) 500 mg PO DAILY [facility] Last Admin: 01/17/23 08:41 Dose: 500 mg Nicotine Polacrilex (Nicotine Polacrilex 2 Mg Gum) 4 mg BUCCAL Q2H PRN PRN Reason: Nicotine Cravings Senna/Docusate Sodium (Sennosides/Docusate Sodium Tablet) 2 tab PO BID [facility] Last Admin: 01/17/23 08:41 Dose: 2 tab Sertraline HCl (Sertraline Hcl 100 Mg Tablet) 100 mg PO DAILY [facility] Last Admin: 01/17/23 08:41 Dose: 100 mg Tamsulosin HCl (Tamsulosin Hcl 0.4 Mg Capsule) 0.4 mg PO DAILY [facility] Last Admin: 01/17/23 08:41 Dose: 0.4 mg Trazodone HCl (Trazodone Hcl 50 Mg Tablet) 50 mg PO BEDTIME MRX1 PRN PRN Reason: Insomnia Last Admin: 01/10/23 19:53 Dose: 50 mg Allergies Allergies Allergy/AdvReac Type Severity Reaction Status Date / Time No Known Allergies [NKA] Allergy Unknown NONE Verified 12/21/22 09:41 Assessment & Plan Assessment & Plan (1) Schizoaffective disorder, depressive type: Status: Acute Code(s): F25.1 - Schizoaffective disorder, depressive type Plan 01/04: continue outpt medications regimen for now. recent onset of mvmts which appear c/w EPS; unclear why movements have begun. trend Sx. T/C ECT if indicated; pt has h/o ECT with some response. 01/05- pt reports hearing voices, taking clozaril. will check clozaril level. decrease sertraline as it worsens psychosis. order bladder scan POST VOID, may need straigh cath if PVR>300ml. sennakot BID. Pt appears with chest congestion, excessive secretions. 01/06: continue current mgmt. IVM have resolved. T/C anti-ACh agent if sialorrhea continues. declines ECT at present. feels changed from admission, unable to express in what way. 01/08: no changes 01/09: says he is depressed, expresses interest in ECT. consult [facility] and obtain medical clearance. continue current medication. 01/10: medically cleared for ECT. seen by [facility]; awaiting go-ahead from [place] for ECT. continue current medications for now. stable presentation, depressed and severely PMR. 01/11: continue current mgmt. ECT to start monday. slightly faster responses today. 01/12: slower today, no substantial change in past couple of days. ECT tomorrow morning. 01/13: ECY #1 completed this morning. no negative events. continue current mgmt. ECT #2 monday. 01/14: Tolerated 1st ECT bitemporally continue plan of care on a decreased dose of lorazepam 01/15: Continue ECT try and limit lorazepam but if needed may need to increase does cannot was reversed with flumazenil. 01/16: tolerated ECT #2 today. slowed from weekend. continue current mgmt. 01/17: ambulating in the milieu, less PMR. continue current mgmt. Reason for continued inpatient stay Substantial Risk for: inability to function and rapid decompensation Time Spent With Patient Time: Total time managing care of this patient today __25__ minutes.
[2023-01-17 19:40] VITALS: BP 127/59; PULSE 77; RESP 15; TEMP 36.2; O2SAT 96
[2023-01-17] MEDS: cloZAPine 100 MG TABLET 300 MG PO (20:22)
[2023-01-18] VITALS (12 sets, daily range): BP systolic 115–169; BP diastolic 57–88; PULSE 70–101; RESP 14–20; TEMP 36.1–37.6; O2SAT 94–99
[2023-01-18 08:02] LABS: Glucose, Whole Blood 98 mg/dL (60-115)
--- NOTE | 2023-01-18 13:20 | P.CONAN_ITS ---
HPI - Anesthesia Eval Consult details Narrative: 57 yo male patient for ECT PMFSH Active Problems Active Problems: All Active Problems (Updated 01/18/23 @ 13:21 by Karie Serrano MD) Routine medical exam (Acute) Schizoaffective disorder, depressive type (Acute) Schizophrenia, catatonic (Acute) Mild sleep apnea (Acute) Nocturnal hypoxia (Acute) Joint inflammation of right hand and wrist (Acute) Cough (Acute) Benign prostate hyperplasia (Acute) Adult general medical exam (Acute) Essential hypertension (Acute) Right hip pain (Acute) Status post fall (Acute) Screening for colon cancer (Acute) Screening for prostate cancer (Acute) Essential (primary) hypertension (Acute) Diabetes mellitus (Acute) Past Medical History Medical History Schizophrenia, catatonic BPH (benign prostatic hyperplasia) Screening for colon cancer Screening for prostate cancer Essential (primary) hypertension Diabetes mellitus Family History Family History Mother Cancer Father Kidney agenesis Family history of problems with anesthesia: No Surgical History Surgical History History of colonoscopy History of tooth extraction History of root canal procedure History of Problems with Anesthesia: No Social History Social History Household Members: None Housing: Apartment Do you presently have visiting nurse or other home services: Yes (Jansen) Alcohol intake: never Patient Tobacco Use Status: Never used Tobacco Smoked in Last 30 Days: No e-Cigarette/Vaping Use: Never Used Second Hand Smoke Exposure: No Use of substances other than those prescribed or required for medical reasons: No Currently Displaying Signs/Symptoms of Drug Intoxication Withdrawal: No Any prior treatment program specific to substance use: No Have you been hit, kicked, punched, or otherwise hurt by someone within the past year? If so, by whom?: No Do you feel safe in your current relationship?: No Current Relationship Is there a partner from a previous relationship who is making you feel unsafe now?: No Are you made to feel afraid or neglected: No Advance Directives: No Advance Directives Information Provided: No Do you have thoughts of harming others: None Do you have a plan to hurt others: No Plan Recently lost weight without trying: Unsure Poor oral hygiene: No service: No Current occupational status: employed Sexual orientation: Unable to collect Cognitive needs: No Hearing needs: No Vision needs: No Meds Allergies Allergy/AdvReac Type Severity Reaction Status Date / Time No Known Allergies [NKA] Allergy Unknown NONE Verified 12/21/22 09:41 Active Medications: Current Medications Acetaminophen (Acetaminophen 325 Mg Tablet) 650 mg PO Q6H PRN PRN Reason: Headache/Pain Mild Scale (1-3) Last Admin: 01/12/23 22:13 Dose: 650 mg Al Hydroxide/Mg Hydroxide (Magnesium Hydrox/Alum Hydrox 30 Ml Oral.Susp) 30 ml PO Q6H PRN PRN Reason: Heartburn/Nausea Last Admin: 01/05/23 11:31 Dose: 30 ml Clozapine (Clozapine 100 Mg Tablet) 300 mg PO BEDTIME REPLACED BY [facility] Last Admin: 01/17/23 20:22 Dose: 300 mg Hydroxyzine HCl (Hydroxyzine Hcl 25 Mg Tablet) 25 mg PO Q6H PRN PRN Reason: Anxiety Lorazepam (Lorazepam 1 Mg Tablet) 1 mg PO TID REPLACED BY [facility] Last Admin: 01/17/23 20:27 Dose: Not Given Magnesium Hydroxide (Milk Of Magnesia 30 Ml Oral.Susp) 30 ml PO DAILY PRN PRN Reason: Constipation Metformin HCl (Metformin Hcl Er 500 Mg Tab.Er.24h) 500 mg PO DAILY REPLACED BY [facility] Last Admin: 01/17/23 08:41 Dose: 500 mg Nicotine Polacrilex (Nicotine Polacrilex 2 Mg Gum) 4 mg BUCCAL Q2H PRN PRN Reason: Nicotine Cravings Senna/Docusate Sodium (Sennosides/Docusate Sodium Tablet) 2 tab PO BID REPLACED BY [facility] Last Admin: 01/17/23 20:22 Dose: 2 tab Sertraline HCl (Sertraline Hcl 100 Mg Tablet) 100 mg PO DAILY REPLACED BY [facility] Last Admin: 01/17/23 08:41 Dose: 100 mg Tamsulosin HCl (Tamsulosin Hcl 0.4 Mg Capsule) 0.4 mg PO DAILY REPLACED BY [facility] Last Admin: 01/17/23 08:41 Dose: 0.4 mg Trazodone HCl (Trazodone Hcl 50 Mg Tablet) 50 mg PO BEDTIME MRX1 PRN PRN Reason: Insomnia Last Admin: 01/10/23 19:53 Dose: 50 mg Home Medications Medication Instructions Recorded Confirmed Last Taken Type lancets 28 gauge (FreeStyle 01/04/23 01/04/23 Unknown History Lancets) tamsulosin 0.4 mg capsule 0.4 mg PO DAILY 01/04/23 01/04/23 01/02/23 17:00 History Exam Exam Date and Time: January 18, 2023 1320 Height,Weight and Vital Signs: Height 5 ft 10 in Weight 95.148 kg Last Vital Signs Temp 97.0 F 01/18/23 12:48 Pulse 75 01/18/23 12:48 Resp 20 01/18/23 12:48 BP 155/85 H 01/18/23 12:48 Pulse Ox 99 01/18/23 12:48 O2 Del Method Room Air 01/18/23 12:48 O2 Flow Rate 2 01/16/23 09:01 Pertinent Lab Results Pertinent Lab Results: Laboratory Tests 01/03/23 01/04/23 01/04/23 17:40 00:55 10:38 WBC 7.8 RBC 4.42 L Hgb 12.7 L Hct 40.1 L MCV 90.7 MCH 28.7 MCHC 31.7 RDW 13.2 Plt Count 166 MPV 11.0 Immature Gran % (Auto) 0.5 H Neut % (Auto) 71.4 Lymph % (Auto) 20.7 [place] % (Auto) 7.4 Eos % (Auto) 0.0 Baso % (Auto) 0.0 Lymph # (Auto) 1.6 [place] # (Auto) 0.6 Eos # (Auto) 0.0 Baso # (Auto) 0.0 Abs Immat Gran (auto) 0.04 H Absolute Neuts (auto) 5.6 Absolute Nucleated RBC 0.000 Nucleated RBC % (auto) 0.0 Sodium 140 Potassium 4.1 Chloride 105 Carbon Dioxide 25 Anion Gap 14 BUN 19 H Creatinine 1.35 Estim Creat Clear Calc 65.9 Estimated GFR 54 POC Glucose 108 Random Glucose 87 Calcium 9.5 D Magnesium 2.1 Total Bilirubin 0.5 Direct Bilirubin 0.2 AST 12 ALT 6 Alkaline Phosphatase 59 Total Protein 7.2 Albumin 4.2 Urine Color Yellow Urine Appearance Clear Urine pH 6.5 Ur Specific [place] 1.015 Urine Protein Negative Urine Glucose (UA) Negative Urine Ketones Negative Urine Blood Negative Urine Nitrite Negative Ur Leukocyte Esterase Negative Urine Opiates Screen Not Detected Urine Fentanyl Screen Not Detected Ur Barbiturates Screen Not Detected Ur Phencyclidine Scrn Not Detected Ur Amphetamines Screen Not Detected U Benzodiazepines Scrn Not Detected [place] 0.72 Urine Cocaine Screen Not Detected U Marijuana (THC) Screen Not Detected Ethyl Alcohol < 10 COVID-19 (SHAKA) Negative COVID-19 Tw[facility]q See Note 01/05/23 01/05/23 01/05/23 08:23 08:36 13:38 WBC RBC Hgb Hct MCV MCH MCHC RDW Plt Count MPV Immature Gran % (Auto) Neut % (Auto) Lymph % (Auto) [place] % (Auto) Eos % (Auto) Baso % (Auto) Lymph # (Auto) [place] # (Auto) Eos # (Auto) Baso # (Auto) Abs Immat Gran (auto) Absolute Neuts (auto) Absolute Nucleated RBC Nucleated RBC % (auto) Sodium 141 Potassium 4.0 Chloride 105 Carbon Dioxide 28 Anion Gap 12 BUN 24 H Creatinine 1.39 Estim Creat Clear Calc 64.0 Estimated GFR 52 POC Glucose 107 Random Glucose 120 H Calcium 9.5 Magnesium Total Bilirubin 0.5 Direct Bilirubin AST 9 ALT < 5 Alkaline Phosphatase 57 Total Protein 6.8 Albumin 4.0 Urine Color Urine Appearance Urine pH Ur Specific [place] Urine Protein Urine Glucose (UA) Urine Ketones Urine Blood Urine Nitrite Ur Leukocyte Esterase Urine Opiates Screen Urine Fentanyl Screen Ur Barbiturates Screen Ur Phencyclidine Scrn Ur Amphetamines Screen U Benzodiazepines Scrn [place] 0.85 Urine Cocaine Screen U Marijuana (THC) Screen Ethyl Alcohol COVID-19 ([facility]AKA) COVID-19 Tw[place]q 01/06/23 01/07/23 01/08/23 07:43 08:13 08:02 WBC RBC Hgb Hct MCV MCH MCHC RDW Plt Count MPV Immature Gran % (Auto) Neut % (Auto) Lymph % (Auto) [place] % (Auto) Eos % (Auto) Baso % (Auto) Lymph # (Auto) [place] # (Auto) Eos # (Auto) Baso # (Auto) Abs Immat Gran (auto) Absolute Neuts (auto) Absolute Nucleated RBC Nucleated RBC % (auto) Sodium Potassium Chloride Carbon Dioxide Anion Gap BUN Creatinine Estim Creat Clear Calc Estimated GFR POC Glucose 112 102 96 Random Glucose Calcium Magnesium Total Bilirubin Direct Bilirubin AST ALT Alkaline Phosphatase Total Protein Albumin Urine Color Urine Appearance Urine pH Ur Specific [place] Urine Protein Urine Glucose (UA) Urine Ketones Urine Blood Urine Nitrite Ur Leukocyte Esterase Urine Opiates Screen Urine Fentanyl Screen Ur Barbiturates Screen Ur Phencyclidine Scrn Ur Amphetamines Screen U Benzodiazepines Scrn [place] Urine Cocaine Screen U Marijuana (THC) Screen Ethyl Alcohol COVID-19 ([facility]) COVID-19 [employer] 01/09/23 01/10/23 01/10/23 07:54 07:49 08:01 WBC RBC Hgb Hct MCV MCH MCHC RDW Plt Count MPV Immature Gran % (Auto) Neut % (Auto) Lymph % (Auto) [place] % (Auto) Eos % (Auto) Baso % (Auto) Lymph # (Auto) [place] # (Auto) Eos # (Auto) Baso # (Auto) Abs Immat Gran (auto) Absolute Neuts (auto) 4.7 Absolute Nucleated RBC Nucleated RBC % (auto) Sodium Potassium Chloride Carbon Dioxide Anion Gap BUN Creatinine Estim Creat Clear Calc Estimated GFR POC Glucose 108 101 Random Glucose Calcium Magnesium Total Bilirubin Direct Bilirubin AST ALT Alkaline Phosphatase Total Protein Albumin Urine Color Urine Appearance Urine pH Ur Specific [place] Urine Protein Urine Glucose (UA) Urine Ketones Urine Blood Urine Nitrite Ur Leukocyte Esterase Urine Opiates Screen Urine Fentanyl Screen Ur Barbiturates Screen Ur Phencyclidine Scrn Ur Amphetamines Screen U Benzodiazepines Scrn [place] Urine Cocaine Screen U Marijuana (THC) Screen Ethyl Alcohol COVID-19 ([facility]AK[facility]) COVID-19 Tw[facility]q 01/11/23 01/12/23 01/12/23 08:27 08:46 10:50 WBC RBC Hgb Hct MCV MCH MCHC RDW Plt Count MPV Immature Gran % (Auto) Neut % (Auto) Lymph % (Auto) [place] % (Auto) Eos % (Auto) Baso % (Auto) Lymph # (Auto) [place] # (Auto) Eos # (Auto) Baso # (Auto) Abs Immat Gran (auto) Absolute Neuts (auto) Absolute Nucleated RBC Nucleated RBC % (auto) Sodium Potassium Chloride Carbon Dioxide Anion Gap BUN Creatinine 1.20 Estim Creat Clear Calc 76.7 Estimated GFR > 60 POC Glucose 94 121 H Random Glucose Calcium Magnesium Total Bilirubin Direct Bilirubin AST ALT Alkaline Phosphatase Total Protein Albumin Urine Color Urine Appearance Urine pH Ur Specific [place] Urine Protein Urine Glucose (UA) Urine Ketones Urine Blood Urine Nitrite Ur Leukocyte Esterase Urine Opiates Screen Urine Fentanyl Screen Ur Barbiturates Screen Ur Phencyclidine Scrn Ur Amphetamines Screen U Benzodiazepines Scrn [place] Urine Cocaine Screen U Marijuana (THC) Screen Ethyl Alcohol COVID-19 ([facility]AK[facility]) COVID-19 Twonq 01/13/23 01/14/23 01/15/23 08:05 08:04 08:05 WBC RBC Hgb Hct MCV MCH MCHC RDW Plt Count MPV Immature Gran % (Auto) Neut % (Auto) Lymph % (Auto) [place] % (Auto) Eos % (Auto) Baso % (Auto) Lymph # (Auto) [place] # (Auto) Eos # (Auto) Baso # (Auto) Abs Immat Gran (auto) Absolute Neuts (auto) Absolute Nucleated RBC Nucleated RBC % (auto) Sodium Potassium Chloride Carbon Dioxide Anion Gap BUN Creatinine Estim Creat Clear Calc Estimated GFR POC Glucose 102 94 94 Random Glucose Calcium Magnesium Total Bilirubin Direct Bilirubin AST ALT Alkaline Phosphatase Total Protein Albumin Urine Color Urine Appearance Urine pH Ur Specific [place] Urine Protein Urine Glucose (UA) Urine Ketones Urine Blood Urine Nitrite Ur Leukocyte Esterase Urine Opiates Screen Urine Fentanyl Screen Ur Barbiturates Screen Ur Phencyclidine Scrn Ur Amphetamines Screen U Benzodiazepines Scrn [place] Urine Cocaine Screen U Marijuana (THC) Screen Ethyl Alcohol COVID-19 ([facility]AK[facility]) [employer] 01/16/23 01/17/23 01/17/23 06:07 07:59 08:10 WBC RBC Hgb Hct MCV MCH MCHC RDW Plt Count MPV Immature Gran % (Auto) Neut % (Auto) Lymph % (Auto) [place] % (Auto) Eos % (Auto) Baso % (Auto) Lymph # (Auto) [place] # (Auto) Eos # (Auto) Baso # (Auto) Abs Immat Gran (auto) Absolute Neuts (auto) 3.6 Absolute Nucleated RBC Nucleated RBC % (auto) Sodium Potassium Chloride Carbon Dioxide Anion Gap BUN Creatinine Estim Creat Clear Calc Estimated GFR POC Glucose 100 94 Random Glucose Calcium Magnesium Total Bilirubin Direct Bilirubin AST ALT Alkaline Phosphatase Total Protein Albumin Urine Color Urine Appearance Urine pH Ur Specific [place] Urine Protein Urine Glucose (UA) Urine Ketones Urine Blood Urine Nitrite Ur Leukocyte Esterase Urine Opiates Screen Urine Fentanyl Screen Ur Barbiturates Screen Ur Phencyclidine Scrn Ur Amphetamines Screen U Benzodiazepines Scrn [place] Urine Cocaine Screen U Marijuana (THC) Screen Ethyl Alcohol COVID-19 ([place]) [employer] 01/18/23 07:56 WBC RBC Hgb Hct MCV MCH MCHC RDW Plt Count MPV Immature Gran % (Auto) Neut % (Auto) Lymph % (Auto) [place] % (Auto) Eos % (Auto) Baso % (Auto) Lymph # (Auto) [place] # (Auto) Eos # (Auto) Baso # (Auto) Abs Immat Gran (auto) Absolute Neuts (auto) Absolute Nucleated RBC Nucleated RBC % (auto) Sodium Potassium Chloride Carbon Dioxide Anion Gap BUN Creatinine Estim Creat Clear Calc Estimated GFR POC Glucose 98 Random Glucose Calcium Magnesium Total Bilirubin Direct Bilirubin AST ALT Alkaline Phosphatase Total Protein Albumin Urine Color Urine Appearance Urine pH Ur Specific [place] Urine Protein Urine Glucose (UA) Urine Ketones Urine Blood Urine Nitrite Ur Leukocyte Esterase Urine Opiates Screen Urine Fentanyl Screen Ur Barbiturates Screen Ur Phencyclidine Scrn Ur Amphetamines Screen U Benzodiazepines Scrn [place] Urine Cocaine Screen U Marijuana (THC) Screen Ethyl Alcohol COVID-19 ([facility]AK[facility]) COVID-19 Clin Com Airway Mallampati Class: III (Small mouth opening) TM Dist: >3cm Neck ROM: Full Partial: Upper Loose/Missing/Broken Teeth: Yes (Upper denture) Heart: RRR Lungs: CTAB Assessment and Plan Assessment Anesthesia Assessment: Anesthesia Plan Discussed and Chart Reviewed Final Anesthetic Review Family History of Problems with Anesthesia: No History of Problems with Anesthesia: No NPO: Yes ASA Class: III Final Preanesthetic Review: No Changes in Pt Med Stat, Meds/Allgs Chart Reviewed, Consent Obtained/Reviewed and Anes Risks/Benef Reviewed Patient Risk: Intermediate Procedure Risk: Intermediate Assessment/Block/Sedation in SS: Assess/Block/Sedation-SS Anesthetic Plan Anesthetic Plan: GA Disposition: Standard PACU and Inp. Admit - Standard Bed
--- NOTE | 2023-01-18 13:50 | MHC.SHP ---
Pre-Procedural Eval Section A Date of Service: 01/18/23 The patient is an INPATIENT: Yes Changes since office visit: No Cold of Flu in the past 2 weeks, No New Medical Problems, No Changes in Medication and No Patient answered all questions The History & Physical has been completed within 30 days and I have reviewed it.: Yes Section B Chief Complaint: Psychosis Allergies: Allergies Allergy/AdvReac Type Severity Reaction Status Date / Time No Known Allergies [NKA] Allergy Unknown NONE Verified 12/21/22 09:41 Plan I have reviewed the history and physical and performed a pertinent physical examination on my patient. No changes have occurred unless specified. Time Spent With Patient Time: Total time managing care of this patient today ____ minutes.
--- NOTE | 2023-01-18 13:51 | HO.ECTPROC ---
ECT Procedure Note Diagnosis/Treatment Date of Service: 01/18/23 Diagnosis: Schizoaffective Disorder Previous ECT Date: 01/16/23 Current Treatment Number: 3 Treatment: Series Interval Clinical Notes: . Patient remains depressed withdrawn delayed response slowed mentation given iv ativan post ect Time: Total time managing care of this patient today ____ minutes. ECT Settings Device: THYMATRON DGx Electrode Placement: Bitemporal Program/Pulse Width: 0.50 Energy Percent: 100 Seizure Duration By EEG (in seconds): 34 Medications Administration General Anesthetic: Etomidate (16) Muscle Relaxant: Succinylcholine (120) Ancillary Medications Analgesics: Torodol - Pre ECT Anti-emetics: Zofran - Pre ECT Airway Management Airway Management: Bag Mask Ventilation Treatment Recommendations No Changes Recommended: No change Notes: USE FLUMAZENIL PRE TX may get better response ? Pt Tolerated Procedure w/o Issue: Yes
[2023-01-18] MEDS: LORazepam 2 MG/ML VIAL IVPUSH (14:24)
[2023-01-18] MEDS: Sennosides/Docusate Sodium TABLET 2 TAB PO ×2 (15:28→20:40)
[2023-01-18] MEDS: Sertraline HCL 100 MG TABLET PO (15:29)
[2023-01-18] MEDS: LORazepam 1 MG TABLET PO ×2 (15:29→20:40)
[2023-01-18] MEDS: Tamsulosin HCL 0.4 MG CAPSULE PO (15:29)
[2023-01-18] MEDS: metFORMIN HCl ER 500 MG TAB.ER.24H PO (15:29)
--- NOTE | 2023-01-18 15:44 | P.PNPSI_ITS ---
Subjective Subjective Date of Service: 01/18/23 Reason For Visit: Psychosis Interim History: calm, cooperative. slowed. per staff more active in the milieu last night. Mental Status Exam Mental Status Exam Narrative: Appearance: wearing street clothes, fair eye contact, in NAD Behavior: cooperative Psychomotor: retardation, less than previous Speech: soft, terse, non-spontaneous TP: linear TC: no delusions or paranoia expressed Affect: constricted, hypo-intense mood: anxious SI: none expressed HI: none expressed VH/AH: none expressed Insight/judgment: fair x 2. Memory/cog: alert, oriented x 3. Diagnostics Vital Signs (24Hr): Vital Signs - 24 hr 01/17/23 19:40 01/18/23 07:37 01/18/23 12:00 Temperature 97.2 F 97.1 F 97.3 F Pulse Rate 77 78 70 Respiratory Rate 15 14 18 Blood Pressure 127/59 L 116/61 126/78 Pulse Oximetry 96 97 98 Oxygen Delivery Method Room Air Room Air Oxygen Flow Rate 01/18/23 12:48 01/18/23 13:53 01/18/23 13:58 Temperature 97.0 F 99.6 F Pulse Rate 75 84 97 Respiratory Rate 20 16 16 Blood Pressure 155/85 H 169/88 H 137/64 Pulse Oximetry 99 99 97 Oxygen Delivery Method Room Air Nasal Cannula with ETCO2 Nasal Cannula with ETCO2 Oxygen Flow Rate 3 3 01/18/23 14:03 01/18/23 14:08 01/18/23 14:20 Temperature Pulse Rate 84 89 88 Respiratory Rate 20 16 18 Blood Pressure 139/63 127/58 L 127/58 L Pulse Oximetry 99 98 96 Oxygen Delivery Method Nasal Cannula with ETCO2 Nasal Cannula with ETCO2 Room Air Oxygen Flow Rate 3 3 01/18/23 14:35 01/18/23 14:45 01/18/23 15:37 Temperature 98.3 F 97.2 F Pulse Rate 95 97 101 H Respiratory Rate 19 18 18 Blood Pressure 132/63 149/73 H 142/75 H Pulse Oximetry 94 96 98 Oxygen Delivery Method Room Air Room Air Oxygen Flow Rate BMI result Body Mass Index 30.1 Labs 01/03/23 17:40 01/12/23 08:46 Labs: Laboratory Results - last 48 hr 01/17/23 01/17/23 01/18/23 07:59 08:10 07:56 Absolute Neuts (auto) 3.6 POC Glucose 94 98 Medications Medications Current Medications Acetaminophen (Acetaminophen 325 Mg Tablet) 650 mg PO Q6H PRN PRN Reason: Headache/Pain Mild Scale (1-3) Last Admin: 01/12/23 22:13 Dose: 650 mg Al Hydroxide/Mg Hydroxide (Magnesium Hydrox/Alum Hydrox 30 Ml Oral.Susp) 30 ml PO Q6H PRN PRN Reason: Heartburn/Nausea Last Admin: 01/05/23 11:31 Dose: 30 ml Clozapine (Clozapine 100 Mg Tablet) 300 mg PO BEDTIME [facility] Last Admin: 01/17/23 20:22 Dose: 300 mg Hydroxyzine HCl (Hydroxyzine Hcl 25 Mg Tablet) 25 mg PO Q6H PRN PRN Reason: Anxiety Lactated Ringer's (Lr) 1,000 mls @ 100 mls/hr IVCONT .Q10H KRISTIN Lorazepam (Lorazepam 1 Mg Tablet) 1 mg PO TID [facility] Last Admin: 01/18/23 15:29 Dose: 1 mg Magnesium Hydroxide (Milk Of Magnesia 30 Ml Oral.Susp) 30 ml PO DAILY PRN PRN Reason: Constipation Metformin HCl (Metformin Hcl Er 500 Mg Tab.Er.24h) 500 mg PO DAILY [facility] Last Admin: 01/18/23 15:29 Dose: 500 mg Nicotine Polacrilex (Nicotine Polacrilex 2 Mg Gum) 4 mg BUCCAL Q2H PRN PRN Reason: Nicotine Cravings Ondansetron HCl (Ondansetron Hcl 4 Mg/2 Ml Vial) 4 mg IVPUSH ONCE PRN PRN Reason: Nausea and Vomiting Senna/Docusate Sodium (Sennosides/Docusate Sodium Tablet) 2 tab PO BID [facility] Last Admin: 01/18/23 15:28 Dose: 2 tab Sertraline HCl (Sertraline Hcl 100 Mg Tablet) 100 mg PO DAILY [facility] Last Admin: 01/18/23 15:29 Dose: 100 mg Tamsulosin HCl (Tamsulosin Hcl 0.4 Mg Capsule) 0.4 mg PO DAILY [facility] Last Admin: 01/18/23 15:29 Dose: 0.4 mg Trazodone HCl (Trazodone Hcl 50 Mg Tablet) 50 mg PO BEDTIME MRX1 PRN PRN Reason: Insomnia Last Admin: 01/10/23 19:53 Dose: 50 mg Allergies Allergies Allergy/AdvReac Type Severity Reaction Status Date / Time No Known Allergies [NKA] Allergy Unknown NONE Verified 12/21/22 09:41 Assessment & Plan Assessment & Plan (1) Schizoaffective disorder, depressive type: Status: Acute Code(s): F25.1 - Schizoaffective disorder, depressive type Plan 01/04: continue outpt medications regimen for now. recent onset of mvmts which appear c/w EPS; unclear why movements have begun. trend Sx. T/C ECT if indicated; pt has h/o ECT with some response. 01/05- pt reports hearing voices, taking clozaril. will check clozaril level. decrease sertraline as it worsens psychosis. order bladder scan POST VOID, may need straigh cath if PVR>300ml. sennakot BID. Pt appears with chest congestion, excessive secretions. 01/06: continue current mgmt. IVM have resolved. T/C anti-ACh agent if sialorrhea continues. declines ECT at present. feels changed from admission, unable to express in what way. 01/08: no changes 01/09: says he is depressed, expresses interest in ECT. consult [facility] and obtain medical clearance. continue current medication. 01/10: medically cleared for ECT. seen by [facility]; awaiting go-ahead from sawyer for ECT. continue current medications for now. stable presentation, depressed and severely PMR. 01/11: continue current mgmt. ECT to start monday. slightly faster responses today. 01/12: slower today, no substantial change in past couple of days. ECT tomorrow morning. 01/13: ECY #1 completed this morning. no negative events. continue current mgmt. ECT #2 monday. 01/14: Tolerated 1st ECT bitemporally continue plan of care on a decreased dose of lorazepam 01/15: Continue ECT try and limit lorazepam but if needed may need to increase does cannot was reversed with flumazenil. 01/16: tolerated ECT #2 today. slowed from weekend. continue current mgmt. 01/17: ambulating in the milieu, less PMR. continue current mgmt. 01/18: ECT #3 completed today. slightly more active in the milieu the past 36 hours. Reason for continued inpatient stay Substantial Risk for: inability to function and rapid decompensation Time Spent With Patient Time: Total time managing care of this patient today __25__ minutes.
--- NOTE | 2023-01-18 16:10 | PC.NURSE ---
Pt's AM meds were pulled but held per Dr. Crane due to pt having ECT. Meds were administered at 1530 when pt returned. Since pt received scheduled 0900 medication at 1530, pt'/s 1500 Ativan was held per Dr. Crane.
[2023-01-18] MEDS: cloZAPine 100 MG TABLET 300 MG PO (20:40)
[2023-01-19 07:00] VITALS: BMI 30.6
[2023-01-19 07:13] VITALS: BP 116/59; PULSE 69; RESP 14; TEMP 36.3; O2SAT 98
[2023-01-19 07:50] LABS: Glucose, Whole Blood 93 mg/dL (60-115)
[2023-01-19] MEDS: Sennosides/Docusate Sodium TABLET 2 TAB PO ×2 (08:21→21:02)
[2023-01-19] MEDS: metFORMIN HCl ER 500 MG TAB.ER.24H PO (08:21)
[2023-01-19] MEDS: Sertraline HCL 100 MG TABLET PO (08:21)
[2023-01-19] MEDS: Tamsulosin HCL 0.4 MG CAPSULE PO (08:21)
[2023-01-19] MEDS: LORazepam 1 MG TABLET PO (08:21)
[2023-01-19 09:06] LABS: Creatinine Clr Calc Pharmacy 81.4; Estimated Glomerular Filt Rate > 60
[2023-01-19] MEDS: Omeprazole 20 MG CAPSULE.DR PO ×2 (11:12→17:35)
--- NOTE | 2023-01-19 15:47 | P.PNPSI_ITS ---
Subjective Subjective Date of Service: 01/19/23 Reason For Visit: Psychosis Interim History: ambulating in milieu, interactive, less slowed than yesterday. c/o CP when lying down, agreed to start omeprazole. per staff, napping. brighter, more active after ECT. slowed again eves. showered. Mental Status Exam Mental Status Exam Narrative: Appearance: wearing street clothes, fair eye contact, in NAD Behavior: cooperative Psychomotor: retardation, less than previous Speech: soft, terse, non-spontaneous TP: linear TC: no delusions or paranoia expressed Affect: constricted, hypo-intense mood: unchanged from yesterday SI: none expressed HI: none expressed VH/AH: none expressed Insight/judgment: fair x 2. Memory/cog: alert, oriented x 3. Diagnostics Vital Signs (24Hr): Vital Signs - 24 hr 01/18/23 18:00 01/19/23 07:13 Temperature 98.2 F 97.4 F Pulse Rate 82 69 Respiratory Rate 16 14 Blood Pressure 115/57 L 116/59 L Pulse Oximetry 98 98 Oxygen Delivery Method Room Air Room Air BMI result Body Mass Index 30.6 Labs 01/03/23 17:40 01/19/23 08:17 Labs: Laboratory Results - last 48 hr 01/18/23 01/19/23 01/19/23 07:56 07:42 08:17 Creatinine 1.13 Estim Creat Clear Calc 81.4 Estimated GFR > 60 POC Glucose 98 93 Medications Medications Current Medications Acetaminophen (Acetaminophen 325 Mg Tablet) 650 mg PO Q6H PRN PRN Reason: Headache/Pain Mild Scale (1-3) Last Admin: 01/12/23 22:13 Dose: 650 mg Al Hydroxide/Mg Hydroxide (Magnesium Hydrox/Alum Hydrox 30 Ml Oral.Susp) 30 ml PO Q6H PRN PRN Reason: Heartburn/Nausea Last Admin: 01/05/23 11:31 Dose: 30 ml Clozapine (Clozapine 100 Mg Tablet) 300 mg PO BEDTIME KRISTIN Last Admin: 01/18/23 20:40 Dose: 300 mg Hydroxyzine HCl (Hydroxyzine Hcl 25 Mg Tablet) 25 mg PO Q6H PRN PRN Reason: Anxiety Magnesium Hydroxide (Milk Of Magnesia 30 Ml Oral.Susp) 30 ml PO DAILY PRN PRN Reason: Constipation Metformin HCl (Metformin Hcl Er 500 Mg Tab.Er.24h) 500 mg PO DAILY [facility] Last Admin: 01/19/23 08:21 Dose: 500 mg Nicotine Polacrilex (Nicotine Polacrilex 2 Mg Gum) 4 mg BUCCAL Q2H PRN PRN Reason: Nicotine Cravings Omeprazole (Omeprazole 20 Mg Capsule.Dr) 20 mg PO BID@0630,1630 [facility] Last Admin: 01/19/23 11:12 Dose: 20 mg Ondansetron HCl (Ondansetron Hcl 4 Mg/2 Ml Vial) 4 mg IVPUSH ONCE PRN PRN Reason: Nausea and Vomiting Senna/Docusate Sodium (Sennosides/Docusate Sodium Tablet) 2 tab PO BID [facility] Last Admin: 01/19/23 08:21 Dose: 2 tab Sertraline HCl (Sertraline Hcl 100 Mg Tablet) 100 mg PO DAILY [facility] Last Admin: 01/19/23 08:21 Dose: 100 mg Tamsulosin HCl (Tamsulosin Hcl 0.4 Mg Capsule) 0.4 mg PO DAILY [facility] Last Admin: 01/19/23 08:21 Dose: 0.4 mg Trazodone HCl (Trazodone Hcl 50 Mg Tablet) 50 mg PO BEDTIME MRX1 PRN PRN Reason: Insomnia Last Admin: 01/10/23 19:53 Dose: 50 mg Allergies Allergies Allergy/AdvReac Type Severity Reaction Status Date / Time No Known Allergies [NKA] Allergy Unknown NONE Verified 12/21/22 09:41 Assessment & Plan Assessment & Plan (1) Schizoaffective disorder, depressive type: Status: Acute Code(s): F25.1 - Schizoaffective disorder, depressive type Plan 01/04: continue outpt medications regimen for now. recent onset of mvmts which appear c/w EPS; unclear why movements have begun. trend Sx. T/C ECT if indicated; pt has h/o ECT with some response. 01/05- pt reports hearing voices, taking clozaril. will check clozaril level. decrease sertraline as it worsens psychosis. order bladder scan POST VOID, may need straigh cath if PVR>300ml. sennakot BID. Pt appears with chest congestion, excessive secretions. 01/06: continue current mgmt. IVM have resolved. T/C anti-ACh agent if sialorrhea continues. declines ECT at present. feels changed from admission, unable to express in what way. 10/15: no changes 01/09: says he is depressed, expresses interest in ECT. consult [facility] and obtain medical clearance. continue current medication. 01/10: medically cleared for ECT. seen by [facility]; awaiting go-ahead from [facility] for ECT. continue current medications for now. stable presentation, depressed and severely PMR. 01/11: continue current mgmt. ECT to start monday. slightly faster responses today. 01/12: slower today, no substantial change in past couple of days. ECT tomorrow morning. 01/13: ECY #1 completed this morning. no negative events. continue current mgmt. ECT #2 monday. 01/14: Tolerated 1st ECT bitemporally continue plan of care on a decreased dose of lorazepam 01/15: Continue ECT try and limit lorazepam but if needed may need to increase does cannot was reversed with flumazenil. 01/16: tolerated ECT #2 today. slowed from weekend. continue current mgmt. 01/17: ambulating in the milieu, less PMR. continue current mgmt. 01/18: ECT #3 completed today. slightly more active in the milieu the past 36 hours. 01/19: less slowed than previously. up and about the unit. c/o CP when lying down, agreed to trial of omeprazole 20 BID. Reason for continued inpatient stay Substantial Risk for: inability to function and rapid decompensation Time Spent With Patient Time: Total time managing care of this patient today __25__ minutes.
[2023-01-19 19:55] VITALS: BP 112/68; PULSE 70; RESP 18; TEMP 36.5; O2SAT 98
[2023-01-19] MEDS: cloZAPine 100 MG TABLET 300 MG PO (21:01)
[2023-01-20 08:03] LABS: Glucose, Whole Blood 93 mg/dL (60-115)
[2023-01-20 08:14] VITALS: BP 123/74; PULSE 66; RESP 18; TEMP 36.2; O2SAT 96
[2023-01-20] MEDS: metFORMIN HCl ER 500 MG TAB.ER.24H PO (10:44)
[2023-01-20] MEDS: Tamsulosin HCL 0.4 MG CAPSULE PO (10:44)
[2023-01-20] MEDS: Sertraline HCL 100 MG TABLET PO (10:44)
[2023-01-20] MEDS: Sennosides/Docusate Sodium TABLET 2 TAB PO ×2 (10:44→22:13)
--- NOTE | 2023-01-20 11:13 | HO.PSYCHPN ---
Subjective Subjective Date of Service: 01/20/23 Reason For Visit: Psychosis Interim History: slowed, calm, cooperative. missed ECT today due to having eaten this morning. does not seem to appreciate the fact, distractable. per staff, depressed, slowed, but improving. good sleep overnight. Mental Status Exam Mental Status Exam Narrative: Appearance: wearing mix of hospital and street clothes, fair eye contact, in NAD Behavior: cooperative Psychomotor: retardation, less than previous Speech: soft, terse, non-spontaneous TP: linear TC: no delusions or paranoia expressed Affect: constricted, hypo-intense mood: unchanged from yesterday SI: none expressed HI: none expressed VH/AH: none expressed Insight/judgment: fair x 2. Memory/cog: alert, oriented x 3. Diagnostics Vital Signs (24Hr): Vital Signs - 24 hr 01/19/23 19:55 01/20/23 08:14 Temperature 97.7 F 97.2 F Pulse Rate 70 66 Respiratory Rate 18 18 Blood Pressure 112/68 123/74 Pulse Oximetry 98 96 Oxygen Delivery Method Room Air Room Air BMI result Body Mass Index 30.6 Labs 01/03/23 17:40 01/19/23 08:17 Labs: Laboratory Results - last 48 hr 01/19/23 01/19/23 01/20/23 07:42 08:17 07:53 Creatinine 1.13 Estim Creat Clear Calc 81.4 Estimated GFR > 60 POC Glucose 93 93 Medications Medications Current Medications Acetaminophen (Acetaminophen 325 Mg Tablet) 650 mg PO Q6H PRN PRN Reason: Headache/Pain Mild Scale (1-3) Last Admin: 01/12/23 22:13 Dose: 650 mg Al Hydroxide/Mg Hydroxide (Magnesium Hydrox/Alum Hydrox 30 Ml Oral.Susp) 30 ml PO Q6H PRN PRN Reason: Heartburn/Nausea Last Admin: 01/05/23 11:31 Dose: 30 ml Clozapine (Clozapine 100 Mg Tablet) 300 mg PO BEDTIME KRISTIN Last Admin: 01/19/23 21:01 Dose: 300 mg Hydroxyzine HCl (Hydroxyzine Hcl 25 Mg Tablet) 25 mg PO Q6H PRN PRN Reason: Anxiety Magnesium Hydroxide (Milk Of Magnesia 30 Ml Oral.Susp) 30 ml PO DAILY PRN PRN Reason: Constipation Metformin HCl (Metformin Hcl Er 500 Mg Tab.Er.24h) 500 mg PO DAILY KRISTIN Last Admin: 01/20/23 10:44 Dose: 500 mg Nicotine Polacrilex (Nicotine Polacrilex 2 Mg Gum) 4 mg BUCCAL Q2H PRN PRN Reason: Nicotine Cravings Omeprazole (Omeprazole 20 Mg Capsule.Dr) 20 mg PO BID@0630,1630 [facility] Last Admin: 01/20/23 10:50 Dose: Not Given Ondansetron HCl (Ondansetron Hcl 4 Mg/2 Ml Vial) 4 mg IVPUSH ONCE PRN PRN Reason: Nausea and Vomiting Senna/Docusate Sodium (Sennosides/Docusate Sodium Tablet) 2 tab PO BID [facility] Last Admin: 01/20/23 10:44 Dose: 2 tab Sertraline HCl (Sertraline Hcl 100 Mg Tablet) 100 mg PO DAILY [facility] Last Admin: 01/20/23 10:44 Dose: 100 mg Tamsulosin HCl (Tamsulosin Hcl 0.4 Mg Capsule) 0.4 mg PO DAILY [facility] Last Admin: 01/20/23 10:44 Dose: 0.4 mg Trazodone HCl (Trazodone Hcl 50 Mg Tablet) 50 mg PO BEDTIME MRX1 PRN PRN Reason: Insomnia Last Admin: 01/10/23 19:53 Dose: 50 mg Allergies Allergies Allergy/AdvReac Type Severity Reaction Status Date / Time No Known Allergies [NKA] Allergy Unknown NONE Verified 12/21/22 09:41 Assessment & Plan Assessment & Plan (1) Schizoaffective disorder, depressive type: Status: Acute Code(s): F25.1 - Schizoaffective disorder, depressive type Plan 01/04: continue outpt medications regimen for now. recent onset of mvmts which appear c/w EPS; unclear why movements have begun. trend Sx. T/C ECT if indicated; pt has h/o ECT with some response. 01/05- pt reports hearing voices, taking clozaril. will check clozaril level. decrease sertraline as it worsens psychosis. order bladder scan POST VOID, may need straigh cath if PVR>300ml. sennakot BID. Pt appears with chest congestion, excessive secretions. 01/06: continue current mgmt. IVM have resolved. T/C anti-ACh agent if sialorrhea continues. declines ECT at present. feels changed from admission, unable to express in what way. 01/08: no changes 01/09: says he is depressed, expresses interest in ECT. consult [facility] and obtain medical clearance. continue current medication. 01/10: medically cleared for ECT. seen by [facility]; awaiting go-ahead from [place] [facility] for ECT. continue current medications for now. stable presentation, depressed and severely PMR. 01/11: continue current mgmt. ECT to start monday. slightly faster responses today. 01/12: slower today, no substantial change in past couple of days. ECT tomorrow morning. 01/13: ECY #1 completed this morning. no negative events. continue current mgmt. ECT #2 monday. 01/14: Tolerated 1st ECT bitemporally continue plan of care on a decreased dose of lorazepam 01/15: Continue ECT try and limit lorazepam but if needed may need to increase does cannot was reversed with flumazenil. 01/16: tolerated ECT #2 today. slowed from weekend. continue current mgmt. 01/17: ambulating in the milieu, less PMR. continue current mgmt. 01/18: ECT #3 completed today. slightly more active in the milieu the past 36 hours. 01/19: less slowed than previously. up and about the unit. c/o CP when lying down, agreed to trial of omeprazole 20 BID. 01/20: missed ECT this morning due to having eaten some breakfast. remains slowed but improved from admission. continue current mgmt. Reason for continued inpatient stay Substantial Risk for: inability to function and rapid decompensation Time Spent With Patient Time: Total time managing care of this patient today __25__ minutes.
[2023-01-20] MEDS: Omeprazole 20 MG CAPSULE.DR PO (17:07)
[2023-01-20 19:47] VITALS: BP 109/56; PULSE 63; RESP 16; TEMP 36.7; O2SAT 97
[2023-01-20] MEDS: cloZAPine 100 MG TABLET 300 MG PO (22:13)
[2023-01-21 07:59] LABS: Glucose, Whole Blood 102 mg/dL (60-115)
[2023-01-21 08:30] VITALS: BP 149/67; PULSE 75; RESP 20; TEMP 36.1; O2SAT 98
[2023-01-21] MEDS: Omeprazole 20 MG CAPSULE.DR PO ×2 (08:44→16:22)
[2023-01-21] MEDS: Tamsulosin HCL 0.4 MG CAPSULE PO (08:45)
[2023-01-21] MEDS: Sertraline HCL 100 MG TABLET PO (08:45)
[2023-01-21] MEDS: LORazepam 1 MG TABLET PO ×3 (08:45→20:31)
[2023-01-21] MEDS: metFORMIN HCl ER 500 MG TAB.ER.24H PO (08:45)
[2023-01-21] MEDS: Sennosides/Docusate Sodium TABLET 2 TAB PO ×2 (08:45→20:31)
--- NOTE | 2023-01-21 09:53 | P.PNPSI_ITS ---
Subjective Subjective Date of Service: 01/21/23 Reason For Visit: Psychosis Interim History: Patient was seen and discussed in rounds today. Records and plans were reviewed. He continues to be withdrawn, home minimal response with delay. He is medication compliant. He missed his ECT on Monday because of eating. He feels that the treatment has been helpful to him. He is not having any complaints. No changes were made today Medication Compliance: Yes Attending Groups: No Review of Systems Review of Systems Yes all other systems are reviewed and are negative Mental Status Exam Mental Status Exam Narrative: In today's visit he is alert, oriented and pleasant. Soft-spoken speech. Moderate eye contact. Affect is appropriate and constricted. No signs of psychosis. No SI. Cognitively he has slow thought processes. Judgment is intact. Diagnostics Vital Signs (24Hr): Vital Signs - 24 hr 01/20/23 19:47 Temperature 98.1 F Pulse Rate 63 Respiratory Rate 16 Blood Pressure 109/56 L Pulse Oximetry 97 Oxygen Delivery Method Room Air BMI result Body Mass Index 30.6 Labs 01/03/23 17:40 01/19/23 08:17 Labs: Laboratory Results - last 48 hr 01/20/23 01/21/23 07:53 07:54 POC Glucose 93 102 Medications Medications Current Medications Acetaminophen (Acetaminophen 325 Mg Tablet) 650 mg PO Q6H PRN PRN Reason: Headache/Pain Mild Scale (1-3) Last Admin: 01/12/23 22:13 Dose: 650 mg Al Hydroxide/Mg Hydroxide (Magnesium Hydrox/Alum Hydrox 30 Ml Oral.Susp) 30 ml PO Q6H PRN PRN Reason: Heartburn/Nausea Last Admin: 01/05/23 11:31 Dose: 30 ml Clozapine (Clozapine 100 Mg Tablet) 300 mg PO BEDTIME KRISTIN Last Admin: 01/20/23 22:13 Dose: 300 mg Hydroxyzine HCl (Hydroxyzine Hcl 25 Mg Tablet) 25 mg PO Q6H PRN PRN Reason: Anxiety Lorazepam (Lorazepam 1 Mg Tablet) 1 mg PO TID [facility] Last Admin: 01/21/23 08:45 Dose: 1 mg Magnesium Hydroxide (Milk Of Magnesia 30 Ml Oral.Susp) 30 ml PO DAILY PRN PRN Reason: Constipation Metformin HCl (Metformin Hcl Er 500 Mg Tab.Er.24h) 500 mg PO DAILY [facility] Last Admin: 01/21/23 08:45 Dose: 500 mg Nicotine Polacrilex (Nicotine Polacrilex 2 Mg Gum) 4 mg BUCCAL Q2H PRN PRN Reason: Nicotine Cravings Omeprazole (Omeprazole 20 Mg Capsule.) 20 mg PO BID@0630,1630 [facility] Last Admin: 01/21/23 08:44 Dose: 20 mg Ondansetron HCl (Ondansetron Hcl 4 Mg/2 Ml Vial) 4 mg IVPUSH ONCE PRN PRN Reason: Nausea and Vomiting Senna/Docusate Sodium (Sennosides/Docusate Sodium Tablet) 2 tab PO BID [facility] Last Admin: 01/21/23 08:45 Dose: 2 tab Sertraline HCl (Sertraline Hcl 100 Mg Tablet) 100 mg PO DAILY [facility] Last Admin: 01/21/23 08:45 Dose: 100 mg Tamsulosin HCl (Tamsulosin Hcl 0.4 Mg Capsule) 0.4 mg PO DAILY [facility] Last Admin: 01/21/23 08:45 Dose: 0.4 mg Trazodone HCl (Trazodone Hcl 50 Mg Tablet) 50 mg PO BEDTIME MRX1 PRN PRN Reason: Insomnia Last Admin: 01/10/23 19:53 Dose: 50 mg Allergies Allergies Allergy/AdvReac Type Severity Reaction Status Date / Time No Known Allergies [NKA] Allergy Unknown NONE Verified 12/21/22 09:41 Assessment & Plan Assessment & Plan (1) Schizoaffective disorder, depressive type: Status: Acute Code(s): F25.1 - Schizoaffective disorder, depressive type Plan 01/04: continue outpt medications regimen for now. recent onset of mvmts which appear c/w EPS; unclear why movements have begun. trend Sx. T/C ECT if indicated; pt has h/o ECT with some response. 01/05- pt reports hearing voices, taking clozaril. will check clozaril level. decrease sertraline as it worsens psychosis. order bladder scan POST VOID, may need straigh cath if PVR>300ml. sennakot BID. Pt appears with chest congestion, excessive secretions. 01/06: continue current mgmt. IVM have resolved. T/C anti-ACh agent if sialorrhea continues. declines ECT at present. feels changed from admission, unable to express in what way. 01/08: no changes 01/09: says he is depressed, expresses interest in ECT. consult [facility] and obtain medical clearance. continue current medication. 01/10: medically cleared for ECT. seen by [facility]; awaiting go-ahead from [facility] for ECT. continue current medications for now. stable presentation, depressed and severely PMR. 01/11: continue current mgmt. ECT to start monday. slightly faster responses today. 01/12: slower today, no substantial change in past couple of days. ECT tomorrow morning. 01/13: ECY #1 completed this morning. no negative events. continue current mgmt. ECT #2 monday. 01/14: Tolerated 1st ECT bitemporally continue plan of care on a decreased dose of lorazepam 01/15: Continue ECT try and limit lorazepam but if needed may need to increase does cannot was reversed with flumazenil. 01/16: tolerated ECT #2 today. slowed from weekend. continue current mgmt. 01/17: ambulating in the milieu, less PMR. continue current mgmt. 01/18: ECT #3 completed today. slightly more active in the milieu the past 36 hours. 01/19: less slowed than previously. up and about the unit. c/o CP when lying down, agreed to trial of omeprazole 20 BID. 01/20: missed ECT this morning due to having eaten some breakfast. remains slowed but improved from admission. continue current mgmt. 01/21: Continue current regimen and plans. Continue ECT on Monday. Reason for continued inpatient stay Substantial Risk for: med/psych decompensation Time Spent With Patient Time: Total time managing care of this patient today ____ minutes.
[2023-01-21 19:32] VITALS: BP 126/71; PULSE 78; RESP 18; TEMP 36.3; O2SAT 99
[2023-01-21] MEDS: cloZAPine 100 MG TABLET 300 MG PO (20:31)
[2023-01-22] MEDS: Omeprazole 20 MG CAPSULE.DR PO ×2 (06:43→16:29)
[2023-01-22 08:00] VITALS: BP 113/57; PULSE 74; RESP 20; TEMP 36.2; O2SAT 97
[2023-01-22 08:10] LABS: Glucose, Whole Blood 104 mg/dL (60-115)
[2023-01-22] MEDS: Sennosides/Docusate Sodium TABLET 2 TAB PO ×2 (08:18→20:29)
[2023-01-22] MEDS: LORazepam 1 MG TABLET PO ×2 (08:18→15:16)
[2023-01-22] MEDS: metFORMIN HCl ER 500 MG TAB.ER.24H PO (08:19)
[2023-01-22] MEDS: Tamsulosin HCL 0.4 MG CAPSULE PO (08:20)
[2023-01-22] MEDS: Sertraline HCL 100 MG TABLET PO (08:21)
--- NOTE | 2023-01-22 08:58 | P.PNPSI_ITS ---
Subjective Subjective Date of Service: 01/22/23 Reason For Visit: Psychosis Subjective Notes: Conditional Voluntary Interim History: Patient was seen and discussed in rounds today. Records and plans were reviewed. He has been stable and compliant with treatment. Clozaril level pending. POC was 1 0 to. Eating and sleeping adequately. No complaints or side effects. No changes were made Medication Compliance: Yes Attending Groups: No Review of Systems Review of Systems Yes all other systems are reviewed and are negative Mental Status Exam Mental Status Exam Narrative: In today's visit he is alert, oriented and pleasant. Soft-spoken speech. Moderate eye contact. Affect is appropriate and constricted. No signs of psychosis. No SI. Cognitively he has slow thought processes. Judgment is intact. Diagnostics Vital Signs (24Hr): Vital Signs - 24 hr 01/21/23 19:32 Temperature 97.3 F Pulse Rate 78 Respiratory Rate 18 Blood Pressure 126/71 Pulse Oximetry 99 Oxygen Delivery Method Room Air BMI result Body Mass Index 30.6 Labs 01/03/23 17:40 01/19/23 08:17 Labs: Laboratory Results - last 48 hr 01/21/23 01/22/23 07:54 08:00 POC Glucose 102 104 Medications Medications Current Medications Acetaminophen (Acetaminophen 325 Mg Tablet) 650 mg PO Q6H PRN PRN Reason: Headache/Pain Mild Scale (1-3) Last Admin: 01/12/23 22:13 Dose: 650 mg Al Hydroxide/Mg Hydroxide (Magnesium Hydrox/Alum Hydrox 30 Ml Oral.Susp) 30 ml PO Q6H PRN PRN Reason: Heartburn/Nausea Last Admin: 01/05/23 11:31 Dose: 30 ml Clozapine (Clozapine 100 Mg Tablet) 300 mg PO BEDTIME [facility] Last Admin: 01/21/23 20:31 Dose: 300 mg Hydroxyzine HCl (Hydroxyzine Hcl 25 Mg Tablet) 25 mg PO Q6H PRN PRN Reason: Anxiety Lorazepam (Lorazepam 1 Mg Tablet) 1 mg PO TID [facility] Last Admin: 01/22/23 08:18 Dose: 1 mg Magnesium Hydroxide (Milk Of Magnesia 30 Ml Oral.Susp) 30 ml PO DAILY PRN PRN Reason: Constipation Metformin HCl (Metformin Hcl Er 500 Mg Tab.Er.24h) 500 mg PO DAILY [facility] Last Admin: 01/22/23 08:19 Dose: 500 mg Nicotine Polacrilex (Nicotine Polacrilex 2 Mg Gum) 4 mg BUCCAL Q2H PRN PRN Reason: Nicotine Cravings Omeprazole (Omeprazole 20 Mg Capsule.) 20 mg PO BID@0630,1630 [facility] Last Admin: 01/22/23 06:43 Dose: 20 mg Ondansetron HCl (Ondansetron Hcl 4 Mg/2 Ml Vial) 4 mg IVPUSH ONCE PRN PRN Reason: Nausea and Vomiting Senna/Docusate Sodium (Sennosides/Docusate Sodium Tablet) 2 tab PO BID [facility] Last Admin: 01/22/23 08:18 Dose: 2 tab Sertraline HCl (Sertraline Hcl 100 Mg Tablet) 100 mg PO DAILY [facility] Last Admin: 01/22/23 08:21 Dose: 100 mg Tamsulosin HCl (Tamsulosin Hcl 0.4 Mg Capsule) 0.4 mg PO DAILY [facility] Last Admin: 01/22/23 08:20 Dose: 0.4 mg Trazodone HCl (Trazodone Hcl 50 Mg Tablet) 50 mg PO BEDTIME MRX1 PRN PRN Reason: Insomnia Last Admin: 01/10/23 19:53 Dose: 50 mg Allergies Allergies Allergy/AdvReac Type Severity Reaction Status Date / Time No Known Allergies [NKA] Allergy Unknown NONE Verified 12/21/22 09:41 Assessment & Plan Assessment & Plan (1) Schizoaffective disorder, depressive type: Status: Acute Code(s): F25.1 - Schizoaffective disorder, depressive type Plan 01/04: continue outpt medications regimen for now. recent onset of mvmts which appear c/w EPS; unclear why movements have begun. trend Sx. T/C ECT if indicated; pt has h/o ECT with some response. 01/05- pt reports hearing voices, taking clozaril. will check clozaril level. decrease sertraline as it worsens psychosis. order bladder scan POST VOID, may need straigh cath if PVR>300ml. sennakot BID. Pt appears with chest congestion, excessive secretions. 01/06: continue current mgmt. IVM have resolved. T/C anti-ACh agent if sialorrhea continues. declines ECT at present. feels changed from admission, unable to express in what way. 01/08: no changes 01/09: says he is depressed, expresses interest in ECT. consult [facility] and obtain medical clearance. continue current medication. 01/10: medically cleared for ECT. seen by [facility]; awaiting go-ahead from [facility] for ECT. continue current medications for now. stable presentation, depressed and severely PMR. 01/11: continue current mgmt. ECT to start monday. slightly faster responses today. 01/12: slower today, no substantial change in past couple of days. ECT tomorrow morning. 01/13: ECY #1 completed this morning. no negative events. continue current mgmt. ECT #2 monday. 01/14: Tolerated 1st ECT bitemporally continue plan of care on a decreased dose of lorazepam 01/15: Continue ECT try and limit lorazepam but if needed may need to increase does cannot was reversed with flumazenil. 01/16: tolerated ECT #2 today. slowed from weekend. continue current mgmt. 01/17: ambulating in the milieu, less PMR. continue current mgmt. 01/18: ECT #3 completed today. slightly more active in the milieu the past 36 hours. 01/19: less slowed than previously. up and about the unit. c/o CP when lying down, agreed to trial of omeprazole 20 BID. 01/20: missed ECT this morning due to having eaten some breakfast. remains slowed but improved from admission. continue current mgmt. 01/21: Continue current regimen and plans. Continue ECT on Monday. 01/22: Continue current plans and regimen. Reason for continued inpatient stay Substantial Risk for: med/psych decompensation Time Spent With Patient Time: Total time managing care of this patient today ____ minutes.
[2023-01-22 19:25] VITALS: BP 119/68; PULSE 66; RESP 13; TEMP 36.2; O2SAT 100
[2023-01-22] MEDS: cloZAPine 100 MG TABLET 300 MG PO (20:29)
[2023-01-23] VITALS (12 sets, daily range): BP systolic 121–192; BP diastolic 58–89; PULSE 63–103; RESP 15–18; TEMP 36.1–37.3; O2SAT 92–99
[2023-01-23 06:42] LABS: Glucose, Whole Blood 93 mg/dL (60-115)
--- NOTE | 2023-01-23 07:03 | HO.ANESPROP2 ---
[facility] Active Problems Active Problems: All Active Problems (Updated 01/09/23 @ 21:06 by ALEC Agustin) Routine medical exam (Acute) Schizoaffective disorder, depressive type (Acute) Schizophrenia, catatonic (Acute) Mild sleep apnea (Acute) Nocturnal hypoxia (Acute) Joint inflammation of right hand and wrist (Acute) Cough (Acute) Benign prostate hyperplasia (Acute) Adult general medical exam (Acute) Essential hypertension (Acute) Right hip pain (Acute) Status post fall (Acute) Screening for colon cancer (Acute) Screening for prostate cancer (Acute) Essential (primary) hypertension (Acute) Diabetes mellitus (Acute) Past Medical History Medical History Schizophrenia, catatonic BPH (benign prostatic hyperplasia) Screening for colon cancer Screening for prostate cancer Essential (primary) hypertension Diabetes mellitus Family History Family History Mother Cancer Father Kidney agenesis Family history of problems with anesthesia: No Surgical History Surgical History History of colonoscopy History of tooth extraction History of root canal procedure History of Problems with Anesthesia: No Social History Social History Household Members: None Housing: Apartment Do you presently have visiting nurse or other home services: Yes ([facility]) Alcohol intake: never Patient Tobacco Use Status: Never used Tobacco Smoked in Last 30 Days: No e-Cigarette/Vaping Use: Never Used Second Hand Smoke Exposure: No Use of substances other than those prescribed or required for medical reasons: No Currently Displaying Signs/Symptoms of Drug Intoxication Withdrawal: No Any prior treatment program specific to substance use: No Have you been hit, kicked, punched, or otherwise hurt by someone within the past year? If so, by whom?: No Do you feel safe in your current relationship?: No Current Relationship Is there a partner from a previous relationship who is making you feel unsafe now?: No Are you made to feel afraid or neglected: No Advance Directives: No Advance Directives Information Provided: No Do you have thoughts of harming others: None Do you have a plan to hurt others: No Plan Recently lost weight without trying: Unsure Poor oral hygiene: No service: No Current occupational status: employed Sexual orientation: Unable to collect Cognitive needs: No Hearing needs: No Vision needs: No Meds Allergies Allergy/AdvReac Type Severity Reaction Status Date / Time No Known Allergies [NKA] Allergy Unknown NONE Verified 12/21/22 09:41 Active Medications: Current Medications Acetaminophen (Acetaminophen 325 Mg Tablet) 650 mg PO Q6H PRN PRN Reason: Headache/Pain Mild Scale (1-3) Last Admin: 01/12/23 22:13 Dose: 650 mg Al Hydroxide/Mg Hydroxide (Magnesium Hydrox/Alum Hydrox 30 Ml Oral.Susp) 30 ml PO Q6H PRN PRN Reason: Heartburn/Nausea Last Admin: 01/05/23 11:31 Dose: 30 ml Clozapine (Clozapine 100 Mg Tablet) 300 mg PO BEDTIME [facility] Last Admin: 01/22/23 20:29 Dose: 300 mg Hydroxyzine HCl (Hydroxyzine Hcl 25 Mg Tablet) 25 mg PO Q6H PRN PRN Reason: Anxiety Lorazepam (Lorazepam 1 Mg Tablet) 1 mg PO TID [facility] Last Admin: 01/22/23 20:31 Dose: Not Given Magnesium Hydroxide (Milk Of Magnesia 30 Ml Oral.Susp) 30 ml PO DAILY PRN PRN Reason: Constipation Metformin HCl (Metformin Hcl Er 500 Mg Tab.Er.24h) 500 mg PO DAILY [facility] Last Admin: 01/22/23 08:19 Dose: 500 mg Nicotine Polacrilex (Nicotine Polacrilex 2 Mg Gum) 4 mg BUCCAL Q2H PRN PRN Reason: Nicotine Cravings Omeprazole (Omeprazole 20 Mg Capsule.) 20 mg PO BID@0630,1630 [facility] Last Admin: 01/22/23 16:29 Dose: 20 mg Ondansetron HCl (Ondansetron Hcl 4 Mg/2 Ml Vial) 4 mg IVPUSH ONCE PRN PRN Reason: Nausea and Vomiting Senna/Docusate Sodium (Sennosides/Docusate Sodium Tablet) 2 tab PO BID [facility] Last Admin: 01/22/23 20:29 Dose: 2 tab Sertraline HCl (Sertraline Hcl 100 Mg Tablet) 100 mg PO DAILY [facility] Last Admin: 01/22/23 08:21 Dose: 100 mg Tamsulosin HCl (Tamsulosin Hcl 0.4 Mg Capsule) 0.4 mg PO DAILY [facility] Last Admin: 01/22/23 08:20 Dose: 0.4 mg Trazodone HCl (Trazodone Hcl 50 Mg Tablet) 50 mg PO BEDTIME MRX1 PRN PRN Reason: Insomnia Last Admin: 01/10/23 19:53 Dose: 50 mg Home Medications Medication Instructions Recorded Confirmed Last Taken Type lancets 28 gauge (FreeStyle 01/04/23 01/04/23 Unknown History Lancets) tamsulosin 0.4 mg capsule 0.4 mg PO DAILY 01/04/23 01/04/23 01/02/23 17:00 History Exam Exam Date and Time: January 23, 2023 0703 Height,Weight and Vital Signs: Height 5 ft 10 in Weight 96.615 kg Last Vital Signs Temp 97.3 F 01/23/23 06:43 Pulse 73 01/23/23 06:43 Resp 16 01/23/23 06:43 BP 128/83 01/23/23 06:43 Pulse Ox 94 01/23/23 06:43 O2 Del Method Room Air 01/23/23 06:43 O2 Flow Rate 3 01/18/23 14:08 Pertinent Lab Results Pertinent Lab Results: Laboratory Tests 01/03/23 01/04/23 01/04/23 17:40 00:55 10:38 WBC 7.8 RBC 4.42 L Hgb 12.7 L Hct 40.1 L MCV 90.7 MCH 28.7 MCHC 31.7 RDW 13.2 Plt Count 166 MPV 11.0 Immature Gran % (Auto) 0.5 H Neut % (Auto) 71.4 Lymph % (Auto) 20.7 [place] % (Auto) 7.4 Eos % (Auto) 0.0 Baso % (Auto) 0.0 Lymph # (Auto) 1.6 [place] # (Auto) 0.6 Eos # (Auto) 0.0 Baso # (Auto) 0.0 Abs Immat Gran (auto) 0.04 H Absolute Neuts (auto) 5.6 Absolute Nucleated RBC 0.000 Nucleated RBC % (auto) 0.0 Sodium 140 Potassium 4.1 Chloride 105 Carbon Dioxide 25 Anion Gap 14 BUN 19 H Creatinine 1.35 Estim Creat Clear Calc 65.9 Estimated GFR 54 POC Glucose 108 Random Glucose 87 Calcium 9.5 D Magnesium 2.1 Total Bilirubin 0.5 Direct Bilirubin 0.2 AST 12 ALT 6 Alkaline Phosphatase 59 Total Protein 7.2 Albumin 4.2 Urine Color Yellow Urine Appearance Clear Urine pH 6.5 Ur Specific [place] 1.015 Urine Protein Negative Urine Glucose (UA) Negative Urine Ketones Negative Urine Blood Negative Urine Nitrite Negative Ur Leukocyte Esterase Negative Urine Opiates Screen Not Detected Urine Fentanyl Screen Not Detected Ur Barbiturates Screen Not Detected Ur Phencyclidine Scrn Not Detected Ur Amphetamines Screen Not Detected U Benzodiazepines Scrn Not Detected [place] 0.72 Urine Cocaine Screen Not Detected U Marijuana (THC) Screen Not Detected Ethyl Alcohol < 10 COVID-19 ([facility]) Negative COVID-19 Clin Com See Note 01/05/23 01/05/23 01/05/23 08:23 08:36 13:38 WBC RBC Hgb Hct MCV MCH MCHC RDW Plt Count MPV Immature Gran % (Auto) Neut % (Auto) Lymph % (Auto) [place] % (Auto) Eos % (Auto) Baso % (Auto) Lymph # (Auto) [place] # (Auto) Eos # (Auto) Baso # (Auto) Abs Immat Gran (auto) Absolute Neuts (auto) Absolute Nucleated RBC Nucleated RBC % (auto) Sodium 141 Potassium 4.0 Chloride 105 Carbon Dioxide 28 Anion Gap 12 BUN 24 H Creatinine 1.39 Estim Creat Clear Calc 64.0 Estimated GFR 52 POC Glucose 107 Random Glucose 120 H Calcium 9.5 Magnesium Total Bilirubin 0.5 Direct Bilirubin AST 9 ALT < 5 Alkaline Phosphatase 57 Total Protein 6.8 Albumin 4.0 Urine Color Urine Appearance Urine pH Ur Specific [place] Urine Protein Urine Glucose (UA) Urine Ketones Urine Blood Urine Nitrite Ur Leukocyte Esterase Urine Opiates Screen Urine Fentanyl Screen Ur Barbiturates Screen Ur Phencyclidine Scrn Ur Amphetamines Screen U Benzodiazepines Scrn [place] 0.85 Urine Cocaine Screen U Marijuana (THC) Screen Ethyl Alcohol COVID-19 ([facility]) COVID-19 Clin Com 01/06/23 01/07/23 01/08/23 07:43 08:13 08:02 WBC RBC Hgb Hct MCV MCH MCHC RDW Plt Count MPV Immature Gran % (Auto) Neut % (Auto) Lymph % (Auto) [place] % (Auto) Eos % (Auto) Baso % (Auto) Lymph # (Auto) [place] # (Auto) Eos # (Auto) Baso # (Auto) Abs Immat Gran (auto) Absolute Neuts (auto) Absolute Nucleated RBC Nucleated RBC % (auto) Sodium Potassium Chloride Carbon Dioxide Anion Gap BUN Creatinine Estim Creat Clear Calc Estimated GFR POC Glucose 112 102 96 Random Glucose Calcium Magnesium Total Bilirubin Direct Bilirubin AST ALT Alkaline Phosphatase Total Protein Albumin Urine Color Urine Appearance Urine pH Ur Specific [place] Urine Protein Urine Glucose (UA) Urine Ketones Urine Blood Urine Nitrite Ur Leukocyte Esterase Urine Opiates Screen Urine Fentanyl Screen Ur Barbiturates Screen Ur Phencyclidine Scrn Ur Amphetamines Screen U Benzodiazepines Scrn [place] Urine Cocaine Screen U Marijuana (THC) Screen Ethyl Alcohol COVID-19 ([facility]) COVID-19 Explore.To [employer] Pages Com 01/09/23 01/10/23 01/10/23 07:54 07:49 08:01 WBC RBC Hgb Hct MCV MCH MCHC RDW Plt Count MPV Immature Gran % (Auto) Neut % (Auto) Lymph % (Auto) [place] % (Auto) Eos % (Auto) Baso % (Auto) Lymph # (Auto) [place] # (Auto) Eos # (Auto) Baso # (Auto) Abs Immat Gran (auto) Absolute Neuts (auto) 4.7 Absolute Nucleated RBC Nucleated RBC % (auto) Sodium Potassium Chloride Carbon Dioxide Anion Gap BUN Creatinine Estim Creat Clear Calc Estimated GFR POC Glucose 108 101 Random Glucose Calcium Magnesium Total Bilirubin Direct Bilirubin AST ALT Alkaline Phosphatase Total Protein Albumin Urine Color Urine Appearance Urine pH Ur Specific [place] Urine Protein Urine Glucose (UA) Urine Ketones Urine Blood Urine Nitrite Ur Leukocyte Esterase Urine Opiates Screen Urine Fentanyl Screen Ur Barbiturates Screen Ur Phencyclidine Scrn Ur Amphetamines Screen U Benzodiazepines Scrn [place] Urine Cocaine Screen U Marijuana (THC) Screen Ethyl Alcohol COVID-19 ([facility]) COVID-19 Explore.To [employer] Com 01/11/23 01/12/23 01/12/23 08:27 08:46 10:50 WBC RBC Hgb Hct MCV MCH MCHC RDW Plt Count MPV Immature Gran % (Auto) Neut % (Auto) Lymph % (Auto) [place] % (Auto) Eos % (Auto) Baso % (Auto) Lymph # (Auto) [place] # (Auto) Eos # (Auto) Baso # (Auto) Abs Immat Gran (auto) Absolute Neuts (auto) Absolute Nucleated RBC Nucleated RBC % (auto) Sodium Potassium Chloride Carbon Dioxide Anion Gap BUN Creatinine 1.20 Estim Creat Clear Calc 76.7 Estimated GFR > 60 POC Glucose 94 121 H Random Glucose Calcium Magnesium Total Bilirubin Direct Bilirubin AST ALT Alkaline Phosphatase Total Protein Albumin Urine Color Urine Appearance Urine pH Ur Specific [place] Urine Protein Urine Glucose (UA) Urine Ketones Urine Blood Urine Nitrite Ur Leukocyte Esterase Urine Opiates Screen Urine Fentanyl Screen Ur Barbiturates Screen Ur Phencyclidine Scrn Ur Amphetamines Screen U Benzodiazepines Scrn [place] Urine Cocaine Screen U Marijuana (THC) Screen Ethyl Alcohol COVID-19 ([facility]) COVID-19 Clin Com 01/13/23 01/14/23 01/15/23 08:05 08:04 08:05 WBC RBC Hgb Hct MCV MCH MCHC RDW Plt Count MPV Immature Gran % (Auto) Neut % (Auto) Lymph % (Auto) [place] % (Auto) Eos % (Auto) Baso % (Auto) Lymph # (Auto) [place] # (Auto) Eos # (Auto) Baso # (Auto) Abs Immat Gran (auto) Absolute Neuts (auto) Absolute Nucleated RBC Nucleated RBC % (auto) Sodium Potassium Chloride Carbon Dioxide Anion Gap BUN Creatinine Estim Creat Clear Calc Estimated GFR POC Glucose 102 94 94 Random Glucose Calcium Magnesium Total Bilirubin Direct Bilirubin AST ALT Alkaline Phosphatase Total Protein Albumin Urine Color Urine Appearance Urine pH Ur Specific [place] Urine Protein Urine Glucose (UA) Urine Ketones Urine Blood Urine Nitrite Ur Leukocyte Esterase Urine Opiates Screen Urine Fentanyl Screen Ur Barbiturates Screen Ur Phencyclidine Scrn Ur Amphetamines Screen U Benzodiazepines Scrn [place] Urine Cocaine Screen U Marijuana (THC) Screen Ethyl Alcohol COVID-19 ([facility]) COVID-19 Explore.To [employer] Com 01/16/23 01/17/23 01/17/23 06:07 07:59 08:10 WBC RBC Hgb Hct MCV MCH MCHC RDW Plt Count MPV Immature Gran % (Auto) Neut % (Auto) Lymph % (Auto) [place] % (Auto) Eos % (Auto) Baso % (Auto) Lymph # (Auto) [place] # (Auto) Eos # (Auto) Baso # (Auto) Abs Immat Gran (auto) Absolute Neuts (auto) 3.6 Absolute Nucleated RBC Nucleated RBC % (auto) Sodium Potassium Chloride Carbon Dioxide Anion Gap BUN Creatinine Estim Creat Clear Calc Estimated GFR POC Glucose 100 94 Random Glucose Calcium Magnesium Total Bilirubin Direct Bilirubin AST ALT Alkaline Phosphatase Total Protein Albumin Urine Color Urine Appearance Urine pH Ur Specific [place] Urine Protein Urine Glucose (UA) Urine Ketones Urine Blood Urine Nitrite Ur Leukocyte Esterase Urine Opiates Screen Urine Fentanyl Screen Ur Barbiturates Screen Ur Phencyclidine Scrn Ur Amphetamines Screen U Benzodiazepines Scrn [place] Urine Cocaine Screen U Marijuana (THC) Screen Ethyl Alcohol COVID-19 ([facility]) COVID-19 Explore.To [employer] Pages Com 01/18/23 01/19/23 01/19/23 07:56 07:42 08:17 WBC RBC Hgb Hct MCV MCH MCHC RDW Plt Count MPV Immature Gran % (Auto) Neut % (Auto) Lymph % (Auto) [place] % (Auto) Eos % (Auto) Baso % (Auto) Lymph # (Auto) [place] # (Auto) Eos # (Auto) Baso # (Auto) Abs Immat Gran (auto) Absolute Neuts (auto) Absolute Nucleated RBC Nucleated RBC % (auto) Sodium Potassium Chloride Carbon Dioxide Anion Gap BUN Creatinine 1.13 Estim Creat Clear Calc 81.4 Estimated GFR > 60 POC Glucose 98 93 Random Glucose Calcium Magnesium Total Bilirubin Direct Bilirubin AST ALT Alkaline Phosphatase Total Protein Albumin Urine Color Urine Appearance Urine pH Ur Specific [place] Urine Protein Urine Glucose (UA) Urine Ketones Urine Blood Urine Nitrite Ur Leukocyte Esterase Urine Opiates Screen Urine Fentanyl Screen Ur Barbiturates Screen Ur Phencyclidine Scrn Ur Amphetamines Screen U Benzodiazepines Scrn [place] Urine Cocaine Screen U Marijuana (THC) Screen Ethyl Alcohol COVID-19 ([facility]) COVID-19 Milk A Deal 01/20/23 01/21/23 01/22/23 07:53 07:54 08:00 WBC RBC Hgb Hct MCV MCH MCHC RDW Plt Count MPV Immature Gran % (Auto) Neut % (Auto) Lymph % (Auto) [place] % (Auto) Eos % (Auto) Baso % (Auto) Lymph # (Auto) [place] # (Auto) Eos # (Auto) Baso # (Auto) Abs Immat Gran (auto) Absolute Neuts (auto) Absolute Nucleated RBC Nucleated RBC % (auto) Sodium Potassium Chloride Carbon Dioxide Anion Gap BUN Creatinine Estim Creat Clear Calc Estimated GFR POC Glucose 93 102 104 Random Glucose Calcium Magnesium Total Bilirubin Direct Bilirubin AST ALT Alkaline Phosphatase Total Protein Albumin Urine Color Urine Appearance Urine pH Ur Specific [place] Urine Protein Urine Glucose (UA) Urine Ketones Urine Blood Urine Nitrite Ur Leukocyte Esterase Urine Opiates Screen Urine Fentanyl Screen Ur Barbiturates Screen Ur Phencyclidine Scrn Ur Amphetamines Screen U Benzodiazepines Scrn [place] Urine Cocaine Screen U Marijuana (THC) Screen Ethyl Alcohol COVID-19 ([facility]) [email or web address] Com 01/23/23 06:39 WBC RBC Hgb Hct MCV MCH MCHC RDW Plt Count MPV Immature Gran % (Auto) Neut % (Auto) Lymph % (Auto) [place] % (Auto) Eos % (Auto) Baso % (Auto) Lymph # (Auto) [place] # (Auto) Eos # (Auto) Baso # (Auto) Abs Immat Gran (auto) Absolute Neuts (auto) Absolute Nucleated RBC Nucleated RBC % (auto) Sodium Potassium Chloride Carbon Dioxide Anion Gap BUN Creatinine Estim Creat Clear Calc Estimated GFR POC Glucose 93 Random Glucose Calcium Magnesium Total Bilirubin Direct Bilirubin AST ALT Alkaline Phosphatase Total Protein Albumin Urine Color Urine Appearance Urine pH Ur Specific [place] Urine Protein Urine Glucose (UA) Urine Ketones Urine Blood Urine Nitrite Ur Leukocyte Esterase Urine Opiates Screen Urine Fentanyl Screen Ur Barbiturates Screen Ur Phencyclidine Scrn Ur Amphetamines Screen U Benzodiazepines Scrn [place] Urine Cocaine Screen U Marijuana (THC) Screen Ethyl Alcohol COVID-19 ([facility]) COVID-19 Clin Com Airway Mallampati Class: II TM Dist: >3cm Neck ROM: Full Denture: Upper Heart: rrrr Lungs: cta Assessment and Plan Assessment Anesthesia Assessment: Anesthesia Plan Discussed and Chart Reviewed Final Anesthetic Review Family History of Problems with Anesthesia: No History of Problems with Anesthesia: No NPO: Yes ASA Class: III Final Preanesthetic Review: No Changes in Pt Med Stat, Meds/Allgs Chart Reviewed and Consent Obtained/Reviewed Patient Risk: Intermediate Procedure Risk: Intermediate Anesthetic Plan Anesthetic Plan: GA Disposition: Standard PACU
--- NOTE | 2023-01-23 07:04 | MHC.SHP ---
Pre-Procedural Eval Section A Date of Service: 01/23/23 The patient is an INPATIENT: Yes Changes since office visit: No Cold of Flu in the past 2 weeks, No New Medical Problems, No Changes in Medication and No Patient answered all questions The History & Physical has been completed within 30 days and I have reviewed it.: Yes Section B Chief Complaint: Psychosis Allergies: Allergies Allergy/AdvReac Type Severity Reaction Status Date / Time No Known Allergies [NKA] Allergy Unknown NONE Verified 12/21/22 09:41 Plan I have reviewed the history and physical and performed a pertinent physical examination on my patient. No changes have occurred unless specified. Time Spent With Patient Time: Total time managing care of this patient today ____ minutes.
--- NOTE | 2023-01-23 08:01 | HO.ECTPROC ---
ECT Procedure Note Diagnosis/Treatment Date of Service: 01/23/23 Diagnosis: Catatonia and Schizoaffective Disorder Previous ECT Date: 01/18/23 Current Treatment Number: 5 Treatment: Series Interval Clinical Notes: The patient didn't have ECT last Monday since he ate breakfast and the procedure needed to be cancelled. Today, he came and he was catatonic like, responding barely to verbal stimuli, he was able to answer with short phrases. ECT done bitemporal as usual without any complications. I ordered Ativan 2 mg IVP after procedure due to catatonia. Time: Total time managing care of this patient today ____ minutes. ECT Settings Device: THYMATRON DGx Electrode Placement: Bitemporal Program/Pulse Width: 0.50 Energy Percent: 100 Seizure Duration By EEG (in seconds): 51 By Motor Observation (in seconds): 19 Medications Administration General Anesthetic: Etomidate (16) Muscle Relaxant: Succinylcholine (120) Ancillary Medications Analgesics: Torodol - Pre ECT Anti-emetics: Zofran - Pre ECT Miscillaneous Medications: Other (Ativan 2 mg IVP after procedure) Airway Management Airway Management: Bag Mask Ventilation Treatment Recommendations No Changes Recommended: No change Pt Tolerated Procedure w/o Issue: Yes
[2023-01-23] MEDS: LORazepam 2 MG/ML VIAL IVPUSH (08:16)
[2023-01-23] MEDS: LORazepam 1 MG TABLET PO ×3 (09:37→20:07)
[2023-01-23] MEDS: Sertraline HCL 100 MG TABLET PO (09:37)
[2023-01-23] MEDS: metFORMIN HCl ER 500 MG TAB.ER.24H PO (09:37)
[2023-01-23] MEDS: Omeprazole 20 MG CAPSULE.DR PO ×2 (09:37→16:06)
[2023-01-23] MEDS: Sennosides/Docusate Sodium TABLET 2 TAB PO ×2 (09:38→20:07)
[2023-01-23] MEDS: Tamsulosin HCL 0.4 MG CAPSULE PO (09:38)
--- NOTE | 2023-01-23 13:08 | P.PNPSI_ITS ---
Subjective Subjective Date of Service: 01/23/23 Reason For Visit: Psychosis Interim History: more engaging than last week. more spontaneous, better related. states he felt quite well one of the days over the weekend. got ECT this morning, no complications. per staff, ativan fell off 01/19 and was noticed over w/e and restarted. since restarting, improved much. +ADLs. brighter, more engaged monday. Mental Status Exam Mental Status Exam Narrative: In today's visit he is alert, oriented and pleasant. Soft-spoken speech. Moderate eye contact. Affect is appropriate and constricted. No signs of psychosis. No SI. Cognitively he has slow thought processes. Judgment is intact. Diagnostics Vital Signs (24Hr): Vital Signs - 24 hr 01/22/23 19:25 01/23/23 05:55 01/23/23 06:43 Temperature 97.1 F 97.6 F 97.3 F Pulse Rate 66 63 73 Respiratory Rate 13 16 16 Blood Pressure 119/68 121/60 128/83 Pulse Oximetry 100 95 94 Oxygen Delivery Method Room Air Room Air Oxygen Flow Rate 01/23/23 08:01 01/23/23 08:06 01/23/23 08:11 Temperature 99.2 F Pulse Rate 70 97 97 Respiratory Rate 16 16 16 Blood Pressure 158/89 H 153/76 H 192/88 H Pulse Oximetry 97 97 97 Oxygen Delivery Method Nasal Cannula Nasal Cannula Nasal Cannula Oxygen Flow Rate 2 2 2 01/23/23 08:16 01/23/23 08:31 01/23/23 08:46 Temperature Pulse Rate 99 103 H 99 Respiratory Rate 16 16 16 Blood Pressure 151/83 H 140/84 H 158/77 H Pulse Oximetry 92 97 93 Oxygen Delivery Method Nasal Cannula Room Air Room Air Oxygen Flow Rate 2 01/23/23 09:01 01/23/23 09:30 01/23/23 09:32 Temperature 97.6 F 97.8 F 97.8 F Pulse Rate 95 101 H 101 H Respiratory Rate 16 18 18 Blood Pressure 142/88 H 148/83 H 148/83 H Pulse Oximetry 94 93 93 Oxygen Delivery Method Room Air Room Air Oxygen Flow Rate BMI result Body Mass Index 30.6 Labs 01/03/23 17:40 01/19/23 08:17 Labs: Laboratory Results - last 48 hr 01/22/23 01/23/23 08:00 06:39 POC Glucose 104 93 Medications Medications Current Medications Acetaminophen (Acetaminophen 325 Mg Tablet) 650 mg PO Q6H PRN PRN Reason: Headache/Pain Mild Scale (1-3) Last Admin: 01/12/23 22:13 Dose: 650 mg Al Hydroxide/Mg Hydroxide (Magnesium Hydrox/Alum Hydrox 30 Ml Oral.Susp) 30 ml PO Q6H PRN PRN Reason: Heartburn/Nausea Last Admin: 01/05/23 11:31 Dose: 30 ml Clozapine (Clozapine 100 Mg Tablet) 300 mg PO BEDTIME [facility] Last Admin: 01/22/23 20:29 Dose: 300 mg Hydroxyzine HCl (Hydroxyzine Hcl 25 Mg Tablet) 25 mg PO Q6H PRN PRN Reason: Anxiety Lorazepam (Lorazepam 1 Mg Tablet) 1 mg PO TID [facility] Last Admin: 01/23/23 09:37 Dose: 1 mg Magnesium Hydroxide (Milk Of Magnesia 30 Ml Oral.Susp) 30 ml PO DAILY PRN PRN Reason: Constipation Metformin HCl (Metformin Hcl Er 500 Mg Tab.Er.24h) 500 mg PO DAILY [facility] Last Admin: 01/23/23 09:37 Dose: 500 mg Nicotine Polacrilex (Nicotine Polacrilex 2 Mg Gum) 4 mg BUCCAL Q2H PRN PRN Reason: Nicotine Cravings Omeprazole (Omeprazole 20 Mg Capsule.Dr) 20 mg PO BID@0630,1630 [facility] Last Admin: 01/23/23 09:37 Dose: 20 mg Ondansetron HCl (Ondansetron Hcl 4 Mg/2 Ml Vial) 4 mg IVPUSH ONCE PRN PRN Reason: Nausea and Vomiting Polyethylene Glycol (Polyethylene Glycol 3350 17 Gm Powd.Pack) 17 gm PO DAILY PRN PRN Reason: Constipation Senna/Docusate Sodium (Sennosides/Docusate Sodium Tablet) 2 tab PO BID [facility] Last Admin: 01/23/23 09:38 Dose: 2 tab Sertraline HCl (Sertraline Hcl 100 Mg Tablet) 100 mg PO DAILY [facility] Last Admin: 01/23/23 09:37 Dose: 100 mg Tamsulosin HCl (Tamsulosin Hcl 0.4 Mg Capsule) 0.4 mg PO DAILY [facility] Last Admin: 01/23/23 09:38 Dose: 0.4 mg Trazodone HCl (Trazodone Hcl 50 Mg Tablet) 50 mg PO BEDTIME MRX1 PRN PRN Reason: Insomnia Last Admin: 01/10/23 19:53 Dose: 50 mg Allergies Allergies Allergy/AdvReac Type Severity Reaction Status Date / Time No Known Allergies [NKA] Allergy Unknown NONE Verified 12/21/22 09:41 Assessment & Plan Assessment & Plan (1) Schizoaffective disorder, depressive type: Status: Acute Code(s): F25.1 - Schizoaffective disorder, depressive type Plan 01/04: continue outpt medications regimen for now. recent onset of mvmts which appear c/w EPS; unclear why movements have begun. trend Sx. T/C ECT if indicated; pt has h/o ECT with some response. 01/05- pt reports hearing voices, taking clozaril. will check clozaril level. decrease sertraline as it worsens psychosis. order bladder scan POST VOID, may need straigh cath if PVR>300ml. sennakot BID. Pt appears with chest congestion, excessive secretions. 01/06: continue current mgmt. IVM have resolved. T/C anti-ACh agent if sialorrhea continues. declines ECT at present. feels changed from admission, unable to express in what way. 01/08: no changes 01/09: says he is depressed, expresses interest in ECT. consult [facility] and obtain medical clearance. continue current medication. 01/10: medically cleared for ECT. seen by [facility]; awaiting go-ahead from [place] for ECT. continue current medications for now. stable presentation, depressed and severely PMR. 01/11: continue current mgmt. ECT to start monday. slightly faster responses today. 01/12: slower today, no substantial change in past couple of days. ECT tomorrow morning. 01/13: ECY #1 completed this morning. no negative events. continue current mgmt. ECT #2 monday. 01/14: Tolerated 1st ECT bitemporally continue plan of care on a decreased dose of lorazepam 01/15: Continue ECT try and limit lorazepam but if needed may need to increase does cannot was reversed with flumazenil. 01/16: tolerated ECT #2 today. slowed from weekend. continue current mgmt. 01/17: ambulating in the milieu, less PMR. continue current mgmt. 01/18: ECT #3 completed today. slightly more active in the milieu the past 36 hours. 01/19: less slowed than previously. up and about the unit. c/o CP when lying down, agreed to trial of omeprazole 20 BID. 01/20: missed ECT this morning due to having eaten some breakfast. remains slowed but improved from admission. continue current mgmt. 01/21: Continue current regimen and plans. Continue ECT on Monday. 01/22: Continue current plans and regimen. 01/23: ECT #4 completed this morning. more up and about, better related. Reason for continued inpatient stay Substantial Risk for: inability to function and rapid decompensation Time Spent With Patient Time: Total time managing care of this patient today __25__ minutes.
[2023-01-23] MEDS: polyethylene glycoL 3350 17 GM POWD.PACK PO (14:28)
[2023-01-23] MEDS: cloZAPine 100 MG TABLET 300 MG PO (20:08)
[2023-01-24 07:15] VITALS: BP 129/64; PULSE 73; TEMP 36.2; O2SAT 93
[2023-01-24] MEDS: LORazepam 1 MG TABLET PO ×3 (08:12→20:53)
[2023-01-24] MEDS: Omeprazole 20 MG CAPSULE.DR PO ×2 (08:12→16:28)
[2023-01-24] MEDS: Sertraline HCL 100 MG TABLET PO (08:12)
[2023-01-24] MEDS: Sennosides/Docusate Sodium TABLET 2 TAB PO ×2 (08:12→20:52)
[2023-01-24] MEDS: metFORMIN HCl ER 500 MG TAB.ER.24H PO (08:12)
[2023-01-24] MEDS: Tamsulosin HCL 0.4 MG CAPSULE PO (08:12)
[2023-01-24 08:17] LABS: Glucose, Whole Blood 101 mg/dL (60-115)
[2023-01-24 08:52] VITALS: BP 129/64; PULSE 73; RESP 16; TEMP 36.2; O2SAT 93
[2023-01-24 09:10] LABS: Neut%MD 75.1 %; Neutrophils Absolute Auto 5.4 x10*3/uL (2.0-8.3); WBCANC 7.2 X10*3/uL
[2023-01-24 19:45] VITALS: PULSE 76; RESP 15; TEMP 36.2; O2SAT 99
[2023-01-24] MEDS: cloZAPine 100 MG TABLET 300 MG PO (20:52)
--- NOTE | 2023-01-24 21:34 | P.PNPSI_ITS ---
Subjective Subjective Date of Service: 01/24/23 Reason For Visit: Psychosis Subjective Notes: Conditional Voluntary Interim History: Patient generally with orozco affect remains internally preoccupied at times difficulty expressing himself. Has been more engaged social at times seems to be doing better with ECT lorazepam sertraline Medication Compliance: Yes Attending Groups: Intermittent Review of Systems Acute medical concerns: No Mental Status Exam Mental Status Exam Narrative: Appearance: wearing mix of hospital and street clothes, fair eye contact, in NAD Behavior: cooperative Psychomotor: retardation, less than previous Speech: soft, terse, non-spontaneous TP: linear slowed TC: no delusions or paranoia expressed but internally preoccupied Affect: constricted, hypo-intense mood: flat SI: none expressed HI: none expressed VH/AH: none expressed Insight/judgment: fair x 2. Memory/cog: alert, oriented x 3. Diagnostics Vital Signs (24Hr): Vital Signs - 24 hr 01/24/23 07:15 01/24/23 08:52 01/24/23 19:45 Temperature 97.1 F 97.1 F 97.2 F Pulse Rate 73 73 76 Respiratory Rate 16 15 Blood Pressure 129/64 129/64 Pulse Oximetry 93 93 99 Oxygen Delivery Method Room Air Room Air Room Air BMI result Body Mass Index 30.6 Labs 01/03/23 17:40 01/19/23 08:17 Labs: Laboratory Results - last 48 hr 01/23/23 01/24/23 01/24/23 06:39 08:11 08:51 Absolute Neuts (auto) Cancelled POC Glucose 93 101 01/24/23 08:51 Absolute Neuts (auto) 5.4 POC Glucose Medications Medications Current Medications Acetaminophen (Acetaminophen 325 Mg Tablet) 650 mg PO Q6H PRN PRN Reason: Headache/Pain Mild Scale (1-3) Last Admin: 01/12/23 22:13 Dose: 650 mg Al Hydroxide/Mg Hydroxide (Magnesium Hydrox/Alum Hydrox 30 Ml Oral.Susp) 30 ml PO Q6H PRN PRN Reason: Heartburn/Nausea Last Admin: 01/05/23 11:31 Dose: 30 ml Clozapine (Clozapine 100 Mg Tablet) 300 mg PO BEDTIME [facility] Last Admin: 01/24/23 20:52 Dose: 300 mg Hydroxyzine HCl (Hydroxyzine Hcl 25 Mg Tablet) 25 mg PO Q6H PRN PRN Reason: Anxiety Lorazepam (Lorazepam 1 Mg Tablet) 1 mg PO TID [facility] Last Admin: 01/24/23 20:53 Dose: 1 mg Magnesium Hydroxide (Milk Of Magnesia 30 Ml Oral.Susp) 30 ml PO DAILY PRN PRN Reason: Constipation Metformin HCl (Metformin Hcl Er 500 Mg Tab.Er.24h) 500 mg PO DAILY [facility] Last Admin: 01/24/23 08:12 Dose: 500 mg Nicotine Polacrilex (Nicotine Polacrilex 2 Mg Gum) 4 mg BUCCAL Q2H PRN PRN Reason: Nicotine Cravings Omeprazole (Omeprazole 20 Mg Capsule.Dr) 20 mg PO BID@0630,1630 [facility] Last Admin: 01/24/23 16:28 Dose: 20 mg Ondansetron HCl (Ondansetron Hcl 4 Mg/2 Ml Vial) 4 mg IVPUSH ONCE PRN PRN Reason: Nausea and Vomiting Polyethylene Glycol (Polyethylene Glycol 3350 17 Gm Powd.Pack) 17 gm PO DAILY PRN PRN Reason: Constipation Last Admin: 01/23/23 14:28 Dose: 17 gm Senna/Docusate Sodium (Sennosides/Docusate Sodium Tablet) 2 tab PO BID [facility] Last Admin: 01/24/23 20:52 Dose: 2 tab Sertraline HCl (Sertraline Hcl 50 Mg Tablet) 150 mg PO DAILY [facility] Tamsulosin HCl (Tamsulosin Hcl 0.4 Mg Capsule) 0.4 mg PO DAILY [facility] Last Admin: 01/24/23 08:12 Dose: 0.4 mg Trazodone HCl (Trazodone Hcl 50 Mg Tablet) 50 mg PO BEDTIME MRX1 PRN PRN Reason: Insomnia Last Admin: 01/10/23 19:53 Dose: 50 mg Allergies Allergies Allergy/AdvReac Type Severity Reaction Status Date / Time No Known Allergies [NKA] Allergy Unknown NONE Verified 12/21/22 09:41 Assessment & Plan Assessment & Plan (1) Schizoaffective disorder, depressive type: Status: Acute Code(s): F25.1 - Schizoaffective disorder, depressive type Plan 01/04: continue outpt medications regimen for now. recent onset of mvmts which appear c/w EPS; unclear why movements have begun. trend Sx. T/C ECT if indicated; pt has h/o ECT with some response. 01/05- pt reports hearing voices, taking clozaril. will check clozaril level. decrease sertraline as it worsens psychosis. order bladder scan POST VOID, may need straigh cath if PVR>300ml. sennakot BID. Pt appears with chest congestion, excessive secretions. 01/06: continue current mgmt. IVM have resolved. T/C anti-ACh agent if sialorrhea continues. declines ECT at present. feels changed from admission, unable to express in what way. 01/08: no changes 01/09: says he is depressed, expresses interest in ECT. consult [place] and obtain medical clearance. continue current medication. 01/10: medically cleared for ECT. seen by [facility]; awaiting go-ahead from [place] for ECT. continue current medications for now. stable presentation, depressed and severely PMR. 01/11: continue current mgmt. ECT to start monday. slightly faster responses today. 01/12: slower today, no substantial change in past couple of days. ECT tomorrow morning. 01/13: ECY #1 completed this morning. no negative events. continue current mgmt. ECT #2 monday. 01/14: Tolerated 1st ECT bitemporally continue plan of care on a decreased dose of lorazepam 01/15: Continue ECT try and limit lorazepam but if needed may need to increase does cannot was reversed with flumazenil. 01/16: tolerated ECT #2 today. slowed from weekend. continue current mgmt. 01/17: ambulating in the milieu, less PMR. continue current mgmt. 01/18: ECT #3 completed today. slightly more active in the milieu the past 36 hours. 01/19: less slowed than previously. up and about the unit. c/o CP when lying down, agreed to trial of omeprazole 20 BID. 01/20: missed ECT this morning due to having eaten some breakfast. remains slowed but improved from admission. continue current mgmt. 01/21: Continue current regimen and plans. Continue ECT on Monday. 01/22: Continue current plans and regimen. 01/23: ECT #4 completed this morning. more up and about, better related. 01/24/23 pt somewhat flat some internal preoccupation cont ect in am Reason for continued inpatient stay Substantial Risk for: inability to function and rapid decompensation Time Spent With Patient Time: Total time managing care of this patient today ____ minutes.
[2023-01-25] VITALS (11 sets, daily range): BP systolic 132–162; BP diastolic 69–93; PULSE 73–93; RESP 14–24; TEMP 36.2–37.1; O2SAT 94–100
[2023-01-25 06:12] LABS: Glucose, Whole Blood 106 mg/dL (60-115)
--- NOTE | 2023-01-25 07:11 | P.CONAN_ITS ---
[facility] Active Problems Active Problems: All Active Problems (Updated 01/09/23 @ 21:06 by ALEC Agustin) Routine medical exam (Acute) Schizoaffective disorder, depressive type (Acute) Schizophrenia, catatonic (Acute) Mild sleep apnea (Acute) Nocturnal hypoxia (Acute) Joint inflammation of right hand and wrist (Acute) Cough (Acute) Benign prostate hyperplasia (Acute) Adult general medical exam (Acute) Essential hypertension (Acute) Right hip pain (Acute) Status post fall (Acute) Screening for colon cancer (Acute) Screening for prostate cancer (Acute) Essential (primary) hypertension (Acute) Diabetes mellitus (Acute) Past Medical History Medical History Schizophrenia, catatonic BPH (benign prostatic hyperplasia) Screening for colon cancer Screening for prostate cancer Essential (primary) hypertension Diabetes mellitus Family History Family History Mother Cancer Father Kidney agenesis Family history of problems with anesthesia: No Surgical History Surgical History History of colonoscopy History of tooth extraction History of root canal procedure History of Problems with Anesthesia: No Social History Social History Household Members: None Housing: Apartment Do you presently have visiting nurse or other home services: Yes ([place]) Alcohol intake: never Patient Tobacco Use Status: Never used Tobacco Smoked in Last 30 Days: No e-Cigarette/Vaping Use: Never Used Second Hand Smoke Exposure: No Use of substances other than those prescribed or required for medical reasons: No Currently Displaying Signs/Symptoms of Drug Intoxication Withdrawal: No Any prior treatment program specific to substance use: No Have you been hit, kicked, punched, or otherwise hurt by someone within the past year? If so, by whom?: No Do you feel safe in your current relationship?: No Current Relationship Is there a partner from a previous relationship who is making you feel unsafe now?: No Are you made to feel afraid or neglected: No Advance Directives: No Advance Directives Information Provided: No Do you have thoughts of harming others: None Do you have a plan to hurt others: No Plan Recently lost weight without trying: Unsure Poor oral hygiene: No service: No Current occupational status: employed Sexual orientation: Unable to collect Cognitive needs: No Hearing needs: No Vision needs: No Meds Allergies Allergy/AdvReac Type Severity Reaction Status Date / Time No Known Allergies [NKA] Allergy Unknown NONE Verified 12/21/22 09:41 Active Medications: Current Medications Acetaminophen (Acetaminophen 325 Mg Tablet) 650 mg PO Q6H PRN PRN Reason: Headache/Pain Mild Scale (1-3) Last Admin: 01/12/23 22:13 Dose: 650 mg Al Hydroxide/Mg Hydroxide (Magnesium Hydrox/Alum Hydrox 30 Ml Oral.Susp) 30 ml PO Q6H PRN PRN Reason: Heartburn/Nausea Last Admin: 01/05/23 11:31 Dose: 30 ml Clozapine (Clozapine 100 Mg Tablet) 300 mg PO BEDTIME [facility] Last Admin: 01/24/23 20:52 Dose: 300 mg Hydroxyzine HCl (Hydroxyzine Hcl 25 Mg Tablet) 25 mg PO Q6H PRN PRN Reason: Anxiety Lorazepam (Lorazepam 1 Mg Tablet) 1 mg PO TID [facility] Last Admin: 01/24/23 20:53 Dose: 1 mg Magnesium Hydroxide (Milk Of Magnesia 30 Ml Oral.Susp) 30 ml PO DAILY PRN PRN Reason: Constipation Metformin HCl (Metformin Hcl Er 500 Mg Tab.Er.24h) 500 mg PO DAILY [facility] Last Admin: 01/24/23 08:12 Dose: 500 mg Nicotine Polacrilex (Nicotine Polacrilex 2 Mg Gum) 4 mg BUCCAL Q2H PRN PRN Reason: Nicotine Cravings Omeprazole (Omeprazole 20 Mg Capsule.Dr) 20 mg PO BID@0630,1630 [facility] Last Admin: 01/24/23 16:28 Dose: 20 mg Ondansetron HCl (Ondansetron Hcl 4 Mg/2 Ml Vial) 4 mg IVPUSH ONCE PRN PRN Reason: Nausea and Vomiting Polyethylene Glycol (Polyethylene Glycol 3350 17 Gm Powd.Pack) 17 gm PO DAILY PRN PRN Reason: Constipation Last Admin: 01/23/23 14:28 Dose: 17 gm Senna/Docusate Sodium (Sennosides/Docusate Sodium Tablet) 2 tab PO BID [facility] Last Admin: 01/24/23 20:52 Dose: 2 tab Sertraline HCl (Sertraline Hcl 50 Mg Tablet) 150 mg PO DAILY [facility] Tamsulosin HCl (Tamsulosin Hcl 0.4 Mg Capsule) 0.4 mg PO DAILY [facility] Last Admin: 01/24/23 08:12 Dose: 0.4 mg Trazodone HCl (Trazodone Hcl 50 Mg Tablet) 50 mg PO BEDTIME MRX1 PRN PRN Reason: Insomnia Last Admin: 01/10/23 19:53 Dose: 50 mg Home Medications Medication Instructions Recorded Confirmed Last Taken Type lancets 28 gauge (FreeStyle 01/04/23 01/04/23 Unknown History Lancets) tamsulosin 0.4 mg capsule 0.4 mg PO DAILY 01/04/23 01/04/23 01/02/23 17:00 History Exam Exam Date and Time: January 25, 2023 0711 Height,Weight and Vital Signs: Height 5 ft 10 in Weight 96.615 kg Last Vital Signs Temp 97.1 F 01/25/23 06:52 Pulse 77 01/25/23 06:52 Resp 16 01/25/23 06:52 BP 149/70 H 01/25/23 06:52 Pulse Ox 98 01/25/23 06:52 O2 Del Method Room Air 01/25/23 06:42 O2 Flow Rate 2 01/23/23 08:16 Pertinent Lab Results Pertinent Lab Results: Laboratory Tests 01/03/23 01/04/23 01/04/23 17:40 00:55 10:38 WBC 7.8 RBC 4.42 L Hgb 12.7 L Hct 40.1 L MCV 90.7 MCH 28.7 MCHC 31.7 RDW 13.2 Plt Count 166 MPV 11.0 Immature Gran % (Auto) 0.5 H Neut % (Auto) 71.4 Lymph % (Auto) 20.7 [place] % (Auto) 7.4 Eos % (Auto) 0.0 Baso % (Auto) 0.0 Lymph # (Auto) 1.6 [place] # (Auto) 0.6 Eos # (Auto) 0.0 Baso # (Auto) 0.0 Abs Immat Gran (auto) 0.04 H Absolute Neuts (auto) 5.6 Absolute Nucleated RBC 0.000 Nucleated RBC % (auto) 0.0 Sodium 140 Potassium 4.1 Chloride 105 Carbon Dioxide 25 Anion Gap 14 BUN 19 H Creatinine 1.35 Estim Creat Clear Calc 65.9 Estimated GFR 54 POC Glucose 108 Random Glucose 87 Calcium 9.5 D Magnesium 2.1 Total Bilirubin 0.5 Direct Bilirubin 0.2 AST 12 ALT 6 Alkaline Phosphatase 59 Total Protein 7.2 Albumin 4.2 Urine Color Yellow Urine Appearance Clear Urine pH 6.5 Ur Specific [place] 1.015 Urine Protein Negative Urine Glucose (UA) Negative Urine Ketones Negative Urine Blood Negative Urine Nitrite Negative Ur Leukocyte Esterase Negative Urine Opiates Screen Not Detected Urine Fentanyl Screen Not Detected Ur Barbiturates Screen Not Detected Ur Phencyclidine Scrn Not Detected Ur Amphetamines Screen Not Detected U Benzodiazepines Scrn Not Detected [place] 0.72 Urine Cocaine Screen Not Detected U Marijuana (THC) Screen Not Detected Ethyl Alcohol < 10 COVID-19 ([facility]) Negative COVID-19 [facility] See Note 01/05/23 01/05/23 01/05/23 08:23 08:36 13:38 WBC RBC Hgb Hct MCV MCH MCHC RDW Plt Count MPV Immature Gran % (Auto) Neut % (Auto) Lymph % (Auto) [place] % (Auto) Eos % (Auto) Baso % (Auto) Lymph # (Auto) [place] # (Auto) Eos # (Auto) Baso # (Auto) Abs Immat Gran (auto) Absolute Neuts (auto) Absolute Nucleated RBC Nucleated RBC % (auto) Sodium 141 Potassium 4.0 Chloride 105 Carbon Dioxide 28 Anion Gap 12 BUN 24 H Creatinine 1.39 Estim Creat Clear Calc 64.0 Estimated GFR 52 POC Glucose 107 Random Glucose 120 H Calcium 9.5 Magnesium Total Bilirubin 0.5 Direct Bilirubin AST 9 ALT < 5 Alkaline Phosphatase 57 Total Protein 6.8 Albumin 4.0 Urine Color Urine Appearance Urine pH Ur Specific [place] Urine Protein Urine Glucose (UA) Urine Ketones Urine Blood Urine Nitrite Ur Leukocyte Esterase Urine Opiates Screen Urine Fentanyl Screen Ur Barbiturates Screen Ur Phencyclidine Scrn Ur Amphetamines Screen U Benzodiazepines Scrn [place] 0.85 Urine Cocaine Screen U Marijuana (THC) Screen Ethyl Alcohol COVID-19 ([facility]) COVID-19 [facility] 01/06/23 01/07/23 01/08/23 07:43 08:13 08:02 WBC RBC Hgb Hct MCV MCH MCHC RDW Plt Count MPV Immature Gran % (Auto) Neut % (Auto) Lymph % (Auto) [place] % (Auto) Eos % (Auto) Baso % (Auto) Lymph # (Auto) [place] # (Auto) Eos # (Auto) Baso # (Auto) Abs Immat Gran (auto) Absolute Neuts (auto) Absolute Nucleated RBC Nucleated RBC % (auto) Sodium Potassium Chloride Carbon Dioxide Anion Gap BUN Creatinine Estim Creat Clear Calc Estimated GFR POC Glucose 112 102 96 Random Glucose Calcium Magnesium Total Bilirubin Direct Bilirubin AST ALT Alkaline Phosphatase Total Protein Albumin Urine Color Urine Appearance Urine pH Ur Specific [place] Urine Protein Urine Glucose (UA) Urine Ketones Urine Blood Urine Nitrite Ur Leukocyte Esterase Urine Opiates Screen Urine Fentanyl Screen Ur Barbiturates Screen Ur Phencyclidine Scrn Ur Amphetamines Screen U Benzodiazepines Scrn [place] Urine Cocaine Screen U Marijuana (THC) Screen Ethyl Alcohol COVID-19 ([facility]) COVID-19 [facility] 01/09/23 01/10/23 01/10/23 07:54 07:49 08:01 WBC RBC Hgb Hct MCV MCH MCHC RDW Plt Count MPV Immature Gran % (Auto) Neut % (Auto) Lymph % (Auto) [place] % (Auto) Eos % (Auto) Baso % (Auto) Lymph # (Auto) [place] # (Auto) Eos # (Auto) Baso # (Auto) Abs Immat Gran (auto) Absolute Neuts (auto) 4.7 Absolute Nucleated RBC Nucleated RBC % (auto) Sodium Potassium Chloride Carbon Dioxide Anion Gap BUN Creatinine Estim Creat Clear Calc Estimated GFR POC Glucose 108 101 Random Glucose Calcium Magnesium Total Bilirubin Direct Bilirubin AST ALT Alkaline Phosphatase Total Protein Albumin Urine Color Urine Appearance Urine pH Ur Specific [place] Urine Protein Urine Glucose (UA) Urine Ketones Urine Blood Urine Nitrite Ur Leukocyte Esterase Urine Opiates Screen Urine Fentanyl Screen Ur Barbiturates Screen Ur Phencyclidine Scrn Ur Amphetamines Screen U Benzodiazepines Scrn [place] Urine Cocaine Screen U Marijuana (THC) Screen Ethyl Alcohol COVID-19 ([facility]) COVID-19 [facility] 01/11/23 01/12/23 01/12/23 08:27 08:46 10:50 WBC RBC Hgb Hct MCV MCH MCHC RDW Plt Count MPV Immature Gran % (Auto) Neut % (Auto) Lymph % (Auto) [place] % (Auto) Eos % (Auto) Baso % (Auto) Lymph # (Auto) [place] # (Auto) Eos # (Auto) Baso # (Auto) Abs Immat Gran (auto) Absolute Neuts (auto) Absolute Nucleated RBC Nucleated RBC % (auto) Sodium Potassium Chloride Carbon Dioxide Anion Gap BUN Creatinine 1.20 Estim Creat Clear Calc 76.7 Estimated GFR > 60 POC Glucose 94 121 H Random Glucose Calcium Magnesium Total Bilirubin Direct Bilirubin AST ALT Alkaline Phosphatase Total Protein Albumin Urine Color Urine Appearance Urine pH Ur Specific [place] Urine Protein Urine Glucose (UA) Urine Ketones Urine Blood Urine Nitrite Ur Leukocyte Esterase Urine Opiates Screen Urine Fentanyl Screen Ur Barbiturates Screen Ur Phencyclidine Scrn Ur Amphetamines Screen U Benzodiazepines Scrn [place] Urine Cocaine Screen U Marijuana (THC) Screen Ethyl Alcohol COVID-19 ([facility]) COVID-19 [facility] 01/13/23 01/14/23 01/15/23 08:05 08:04 08:05 WBC RBC Hgb Hct MCV MCH MCHC RDW Plt Count MPV Immature Gran % (Auto) Neut % (Auto) Lymph % (Auto) [place] % (Auto) Eos % (Auto) Baso % (Auto) Lymph # (Auto) [place] # (Auto) Eos # (Auto) Baso # (Auto) Abs Immat Gran (auto) Absolute Neuts (auto) Absolute Nucleated RBC Nucleated RBC % (auto) Sodium Potassium Chloride Carbon Dioxide Anion Gap BUN Creatinine Estim Creat Clear Calc Estimated GFR POC Glucose 102 94 94 Random Glucose Calcium Magnesium Total Bilirubin Direct Bilirubin AST ALT Alkaline Phosphatase Total Protein Albumin Urine Color Urine Appearance Urine pH Ur Specific [place] Urine Protein Urine Glucose (UA) Urine Ketones Urine Blood Urine Nitrite Ur Leukocyte Esterase Urine Opiates Screen Urine Fentanyl Screen Ur Barbiturates Screen Ur Phencyclidine Scrn Ur Amphetamines Screen U Benzodiazepines Scrn [place] Urine Cocaine Screen U Marijuana (THC) Screen Ethyl Alcohol COVID-19 ([facility]) [facility] 01/16/23 01/17/23 01/17/23 06:07 07:59 08:10 WBC RBC Hgb Hct MCV MCH MCHC RDW Plt Count MPV Immature Gran % (Auto) Neut % (Auto) Lymph % (Auto) [place] % (Auto) Eos % (Auto) Baso % (Auto) Lymph # (Auto) [place] # (Auto) Eos # (Auto) Baso # (Auto) Abs Immat Gran (auto) Absolute Neuts (auto) 3.6 Absolute Nucleated RBC Nucleated RBC % (auto) Sodium Potassium Chloride Carbon Dioxide Anion Gap BUN Creatinine Estim Creat Clear Calc Estimated GFR POC Glucose 100 94 Random Glucose Calcium Magnesium Total Bilirubin Direct Bilirubin AST ALT Alkaline Phosphatase Total Protein Albumin Urine Color Urine Appearance Urine pH Ur Specific [place] Urine Protein Urine Glucose (UA) Urine Ketones Urine Blood Urine Nitrite Ur Leukocyte Esterase Urine Opiates Screen Urine Fentanyl Screen Ur Barbiturates Screen Ur Phencyclidine Scrn Ur Amphetamines Screen U Benzodiazepines Scrn [place] Urine Cocaine Screen U Marijuana (THC) Screen Ethyl Alcohol COVID-19 ([facility]) COVID-19 [facility] 01/18/23 01/19/23 01/19/23 07:56 07:42 08:17 WBC RBC Hgb Hct MCV MCH MCHC RDW Plt Count MPV Immature Gran % (Auto) Neut % (Auto) Lymph % (Auto) [place] % (Auto) Eos % (Auto) Baso % (Auto) Lymph # (Auto) [place] # (Auto) Eos # (Auto) Baso # (Auto) Abs Immat Gran (auto) Absolute Neuts (auto) Absolute Nucleated RBC Nucleated RBC % (auto) Sodium Potassium Chloride Carbon Dioxide Anion Gap BUN Creatinine 1.13 Estim Creat Clear Calc 81.4 Estimated GFR > 60 POC Glucose 98 93 Random Glucose Calcium Magnesium Total Bilirubin Direct Bilirubin AST ALT Alkaline Phosphatase Total Protein Albumin Urine Color Urine Appearance Urine pH Ur Specific [place] Urine Protein Urine Glucose (UA) Urine Ketones Urine Blood Urine Nitrite Ur Leukocyte Esterase Urine Opiates Screen Urine Fentanyl Screen Ur Barbiturates Screen Ur Phencyclidine Scrn Ur Amphetamines Screen U Benzodiazepines Scrn [place] Urine Cocaine Screen U Marijuana (THC) Screen Ethyl Alcohol COVID-19 ([facility]) COVID-19 [facility] 01/20/23 01/21/23 01/22/23 07:53 07:54 08:00 WBC RBC Hgb Hct MCV MCH MCHC RDW Plt Count MPV Immature Gran % (Auto) Neut % (Auto) Lymph % (Auto) [place] % (Auto) Eos % (Auto) Baso % (Auto) Lymph # (Auto) [place] # (Auto) Eos # (Auto) Baso # (Auto) Abs Immat Gran (auto) Absolute Neuts (auto) Absolute Nucleated RBC Nucleated RBC % (auto) Sodium Potassium Chloride Carbon Dioxide Anion Gap BUN Creatinine Estim Creat Clear Calc Estimated GFR POC Glucose 93 102 104 Random Glucose Calcium Magnesium Total Bilirubin Direct Bilirubin AST ALT Alkaline Phosphatase Total Protein Albumin Urine Color Urine Appearance Urine pH Ur Specific [place] Urine Protein Urine Glucose (UA) Urine Ketones Urine Blood Urine Nitrite Ur Leukocyte Esterase Urine Opiates Screen Urine Fentanyl Screen Ur Barbiturates Screen Ur Phencyclidine Scrn Ur Amphetamines Screen U Benzodiazepines Scrn [place] Urine Cocaine Screen U Marijuana (THC) Screen Ethyl Alcohol COVID-19 ([facility]) COVID-19 [facility] 01/23/23 01/24/23 01/24/23 06:39 08:11 08:51 WBC RBC Hgb Hct MCV MCH MCHC RDW Plt Count MPV Immature Gran % (Auto) Neut % (Auto) Lymph % (Auto) [place] % (Auto) Eos % (Auto) Baso % (Auto) Lymph # (Auto) [place] # (Auto) Eos # (Auto) Baso # (Auto) Abs Immat Gran (auto) Absolute Neuts (auto) Cancelled Absolute Nucleated RBC Nucleated RBC % (auto) Sodium Potassium Chloride Carbon Dioxide Anion Gap BUN Creatinine Estim Creat Clear Calc Estimated GFR POC Glucose 93 101 Random Glucose Calcium Magnesium Total Bilirubin Direct Bilirubin AST ALT Alkaline Phosphatase Total Protein Albumin Urine Color Urine Appearance Urine pH Ur Specific [place] Urine Protein Urine Glucose (UA) Urine Ketones Urine Blood Urine Nitrite Ur Leukocyte Esterase Urine Opiates Screen Urine Fentanyl Screen Ur Barbiturates Screen Ur Phencyclidine Scrn Ur Amphetamines Screen U Benzodiazepines Scrn [place] Urine Cocaine Screen U Marijuana (THC) Screen Ethyl Alcohol COVID-19 ([facility]) [facility] 01/24/23 01/25/23 08:51 06:06 WBC RBC Hgb Hct MCV MCH MCHC RDW Plt Count MPV Immature Gran % (Auto) Neut % (Auto) Lymph % (Auto) [place] % (Auto) Eos % (Auto) Baso % (Auto) Lymph # (Auto) [place] # (Auto) Eos # (Auto) Baso # (Auto) Abs Immat Gran (auto) Absolute Neuts (auto) 5.4 Absolute Nucleated RBC Nucleated RBC % (auto) Sodium Potassium Chloride Carbon Dioxide Anion Gap BUN Creatinine Estim Creat Clear Calc Estimated GFR POC Glucose 106 Random Glucose Calcium Magnesium Total Bilirubin Direct Bilirubin AST ALT Alkaline Phosphatase Total Protein Albumin Urine Color Urine Appearance Urine pH Ur Specific [place] Urine Protein Urine Glucose (UA) Urine Ketones Urine Blood Urine Nitrite Ur Leukocyte Esterase Urine Opiates Screen Urine Fentanyl Screen Ur Barbiturates Screen Ur Phencyclidine Scrn Ur Amphetamines Screen U Benzodiazepines Scrn [place] Urine Cocaine Screen U Marijuana (THC) Screen Ethyl Alcohol COVID-19 ([facility]) COVID-19 Clin Com Airway Mallampati Class: II TM Dist: >3cm Neck ROM: Full Heart: rrr Lungs: cta Assessment and Plan Assessment Anesthesia Assessment: Anesthesia Plan Discussed and Chart Reviewed Final Anesthetic Review Family History of Problems with Anesthesia: No History of Problems with Anesthesia: No NPO: Yes ASA Class: III Final Preanesthetic Review: No Changes in Pt Med Stat, Meds/Allgs Chart Reviewed and Consent Obtained/Reviewed Patient Risk: Intermediate Procedure Risk: Intermediate Anesthetic Plan Anesthetic Plan: GA Disposition: Standard PACU
--- NOTE | 2023-01-25 08:10 | MHC.SHP ---
Pre-Procedural Eval Section A Date of Service: 01/25/23 The patient is an INPATIENT: Yes Changes since office visit: No Cold of Flu in the past 2 weeks, No New Medical Problems, No Changes in Medication and No Patient answered all questions The History & Physical has been completed within 30 days and I have reviewed it.: Yes Section B Chief Complaint: Psychosis Allergies: Allergies Allergy/AdvReac Type Severity Reaction Status Date / Time No Known Allergies [NKA] Allergy Unknown NONE Verified 12/21/22 09:41 Plan I have reviewed the history and physical and performed a pertinent physical examination on my patient. No changes have occurred unless specified. Time Spent With Patient Time: Total time managing care of this patient today ____ minutes.
--- NOTE | 2023-01-25 08:10 | HO.ECTPROC ---
ECT Procedure Note Diagnosis/Treatment Date of Service: 01/25/23 Diagnosis: Catatonia and Schizoaffective Disorder Previous ECT Date: 01/18/23 Current Treatment Number: 6 Treatment: Series Interval Clinical Notes: pt has ect number 6 .some inc range affect noted lorazepam 1 mg iv post tx Time: Total time managing care of this patient today ____ minutes. ECT Settings Device: THYMATRON DGx Electrode Placement: Bitemporal Program/Pulse Width: 0.50 Energy Percent: 100 Seizure Duration By EEG (in seconds): 23 Medications Administration General Anesthetic: Etomidate (16) Muscle Relaxant: Succinylcholine (120) Ancillary Medications Analgesics: Torodol - Pre ECT Anti-emetics: Zofran - Pre ECT Miscillaneous Medications: Other (Ativan 2 mg IVP after procedure) Airway Management Airway Management: Bag Mask Ventilation Treatment Recommendations No Changes Recommended: No change Notes: hold lorazepam nite prior to ect Pt Tolerated Procedure w/o Issue: Yes
[2023-01-25] MEDS: LORazepam 2 MG/ML VIAL 1 MG IVPUSH (08:56)
[2023-01-25] MEDS: Tamsulosin HCL 0.4 MG CAPSULE PO (10:17)
[2023-01-25] MEDS: metFORMIN HCl ER 500 MG TAB.ER.24H PO (10:17)
[2023-01-25] MEDS: Sennosides/Docusate Sodium TABLET 2 TAB PO ×2 (10:17→21:18)
[2023-01-25] MEDS: Omeprazole 20 MG CAPSULE.DR PO ×2 (10:17→17:44)
[2023-01-25] MEDS: Sertraline HCL 50 MG TABLET 150 MG PO (10:18)
[2023-01-25] MEDS: polyethylene glycoL 3350 17 GM POWD.PACK PO (10:25)
[2023-01-25] MEDS: bisacodyL 10 MG SUPP.RECT PR (11:40)
[2023-01-25] MEDS: LORazepam 1 MG TABLET PO ×2 (14:41→21:17)
[2023-01-25] MEDS: cloZAPine 100 MG TABLET 300 MG PO (21:17)
--- NOTE | 2023-01-25 21:36 | P.PNPSI_ITS ---
Subjective Subjective Date of Service: 01/25/23 Reason For Visit: Psychosis Interim History: Tolerating ECT increase range of affect Medication Compliance: Yes Side effects from medications: Yes Review of Systems Constipation responded to treatment history of questionable obstructive sleep apnea some increased secretions noted Mental Status Exam Mental Status Exam Narrative: Appearance: wearing mix of hospital and street clothes, fair eye contact, in NAD Behavior: cooperative Psychomotor: retardation, less than previous Speech: soft, terse, non-spontaneous TP: linear slowed TC: no delusions or paranoia expressed but internally preoccupied Affect: constricted, hypo-intense mood: flat SI: none expressed HI: none expressed VH/AH: none expressed Insight/judgment: fair x 2. Memory/cog: alert, oriented x 3. Diagnostics Vital Signs (24Hr): Vital Signs - 24 hr 01/25/23 06:42 01/25/23 06:52 01/25/23 08:35 Temperature 97.5 F 97.1 F 98.8 F Pulse Rate 73 77 90 Respiratory Rate 14 16 24 H Blood Pressure 156/82 H 149/70 H 161/93 H Pulse Oximetry 94 98 100 Oxygen Delivery Method Room Air Nasal Cannula Oxygen Flow Rate 2 01/25/23 08:40 01/25/23 08:45 01/25/23 08:50 Temperature Pulse Rate 93 89 87 Respiratory Rate 22 H 22 H 18 Blood Pressure 162/84 H 153/85 H 152/80 H Pulse Oximetry 95 96 98 Oxygen Delivery Method Nasal Cannula Nasal Cannula Nasal Cannula Oxygen Flow Rate 2 2 01/25/23 09:05 01/25/23 09:20 01/25/23 09:38 Temperature 97.6 F Pulse Rate 83 79 81 Respiratory Rate 18 17 17 Blood Pressure 152/83 H 135/89 151/82 H Pulse Oximetry 94 96 95 Oxygen Delivery Method Room Air Room Air Room Air Oxygen Flow Rate 01/25/23 10:05 Temperature 98.1 F Pulse Rate 85 Respiratory Rate 16 Blood Pressure 136/82 Pulse Oximetry 95 Oxygen Delivery Method Oxygen Flow Rate BMI result Body Mass Index 30.6 Labs 01/03/23 17:40 01/19/23 08:17 Labs: Laboratory Results - last 48 hr 01/24/23 01/24/23 01/24/23 08:11 08:51 08:51 Absolute Neuts (auto) Cancelled 5.4 POC Glucose 101 01/25/23 06:06 Absolute Neuts (auto) POC Glucose 106 Medications Medications Current Medications Acetaminophen (Acetaminophen 325 Mg Tablet) 650 mg PO Q6H PRN PRN Reason: Headache/Pain Mild Scale (1-3) Last Admin: 01/12/23 22:13 Dose: 650 mg Al Hydroxide/Mg Hydroxide (Magnesium Hydrox/Alum Hydrox 30 Ml Oral.Susp) 30 ml PO Q6H PRN PRN Reason: Heartburn/Nausea Last Admin: 01/05/23 11:31 Dose: 30 ml Bisacodyl (Bisacodyl 10 Mg Supp.Rect) 10 mg AL DAILY PRN PRN Reason: Constipation Last Admin: 01/25/23 11:40 Dose: 10 mg Clozapine (Clozapine 100 Mg Tablet) 300 mg PO BEDTIME [facility] Last Admin: 01/25/23 21:17 Dose: 300 mg Hydroxyzine HCl (Hydroxyzine Hcl 25 Mg Tablet) 25 mg PO Q6H PRN PRN Reason: Anxiety Lorazepam (Lorazepam 1 Mg Tablet) 1 mg PO TID [facility] Last Admin: 01/25/23 21:17 Dose: 1 mg Magnesium Hydroxide (Milk Of Magnesia 30 Ml Oral.Susp) 30 ml PO DAILY PRN PRN Reason: Constipation Metformin HCl (Metformin Hcl Er 500 Mg Tab.Er.24h) 500 mg PO DAILY [facility] Last Admin: 01/25/23 10:17 Dose: 500 mg Nicotine Polacrilex (Nicotine Polacrilex 2 Mg Gum) 4 mg BUCCAL Q2H PRN PRN Reason: Nicotine Cravings Omeprazole (Omeprazole 20 Mg Capsule.Dr) 20 mg PO BID@0630,1630 [facility] Last Admin: 01/25/23 17:44 Dose: 20 mg Ondansetron HCl (Ondansetron Hcl 4 Mg/2 Ml Vial) 4 mg IVPUSH ONCE PRN PRN Reason: Nausea and Vomiting Polyethylene Glycol (Polyethylene Glycol 3350 17 Gm Powd.Pack) 17 gm PO DAILY [facility] Senna/Docusate Sodium (Sennosides/Docusate Sodium Tablet) 2 tab PO BID [facility] Last Admin: 01/25/23 21:18 Dose: 2 tab Sertraline HCl (Sertraline Hcl 50 Mg Tablet) 150 mg PO DAILY [facility] Last Admin: 01/25/23 10:18 Dose: 150 mg Tamsulosin HCl (Tamsulosin Hcl 0.4 Mg Capsule) 0.4 mg PO DAILY [facility] Last Admin: 01/25/23 10:17 Dose: 0.4 mg Trazodone HCl (Trazodone Hcl 50 Mg Tablet) 50 mg PO BEDTIME MRX1 PRN PRN Reason: Insomnia Last Admin: 01/10/23 19:53 Dose: 50 mg Allergies Allergies Allergy/AdvReac Type Severity Reaction Status Date / Time No Known Allergies [NKA] Allergy Unknown NONE Verified 12/21/22 09:41 Assessment & Plan Assessment & Plan (1) Schizoaffective disorder, depressive type: Status: Acute Code(s): F25.1 - Schizoaffective disorder, depressive type Plan 01/04: continue outpt medications regimen for now. recent onset of mvmts which appear c/w EPS; unclear why movements have begun. trend Sx. T/C ECT if indicated; pt has h/o ECT with some response. 01/05- pt reports hearing voices, taking clozaril. will check clozaril level. decrease sertraline as it worsens psychosis. order bladder scan POST VOID, may need straigh cath if PVR>300ml. sennakot BID. Pt appears with chest congestion, excessive secretions. 01/06: continue current mgmt. IVM have resolved. T/C anti-ACh agent if sialorrhea continues. declines ECT at present. feels changed from admission, unable to express in what way. 01/08: no changes 01/09: says he is depressed, expresses interest in ECT. consult [place] and obtain medical clearance. continue current medication. 01/10: medically cleared for ECT. seen by [facility]; awaiting go-ahead from [place] for ECT. continue current medications for now. stable presentation, depressed and severely PMR. 01/11: continue current mgmt. ECT to start monday. slightly faster responses today. 01/12: slower today, no substantial change in past couple of days. ECT tomorrow morning. 01/13: ECY #1 completed this morning. no negative events. continue current mgmt. ECT #2 monday. 01/14: Tolerated 1st ECT bitemporally continue plan of care on a decreased dose of lorazepam 01/15: Continue ECT try and limit lorazepam but if needed may need to increase does cannot was reversed with flumazenil. 01/16: tolerated ECT #2 today. slowed from weekend. continue current mgmt. 01/17: ambulating in the milieu, less PMR. continue current mgmt. 01/18: ECT #3 completed today. slightly more active in the milieu the past 36 hours. 01/19: less slowed than previously. up and about the unit. c/o CP when lying down, agreed to trial of omeprazole 20 BID. 01/20: missed ECT this morning due to having eaten some breakfast. remains slowed but improved from admission. continue current mgmt. 01/21: Continue current regimen and plans. Continue ECT on Monday. 01/22: Continue current plans and regimen. 01/23: ECT #4 completed this morning. more up and about, better related. 01/24/23 pt somewhat flat some internal preoccupation cont ect in am 01/25/2023 Use wedge when sleeping to decrease the risk of aspiration consider Robinul but would increase severe constipation risk questionable history of ALFREDO trying clarify continue ECT patient improved sertraline increased Patient educated on: medication risk/benefits and ECT Informed Consent: understands Reason for continued inpatient stay Substantial Risk for: inability to function, rapid decompensation and med/psych decompensation Time Spent With Patient Time: Total time managing care of this patient today ____ minutes.
[2023-01-26 07:21] LABS: Creatinine Clr Calc Pharmacy 84.3; Estimated Glomerular Filt Rate > 60
[2023-01-26 07:53] VITALS: BP 137/74; PULSE 71; RESP 16; TEMP 36.2; O2SAT 94
[2023-01-26 07:59] LABS: Glucose, Whole Blood 116 mg/dL (60-115)
[2023-01-26 08:19] LABS: Clozapine (Clozaril) 408 mcg/L; Norclozapine 258 mcg/L (25-400)
[2023-01-26 08:25] VITALS: BMI 31.2
[2023-01-26] MEDS: Omeprazole 20 MG CAPSULE.DR PO ×2 (08:29→16:31)
[2023-01-26] MEDS: metFORMIN HCl ER 500 MG TAB.ER.24H PO (08:29)
[2023-01-26] MEDS: Sertraline HCL 50 MG TABLET 150 MG PO (08:30)
[2023-01-26] MEDS: Sennosides/Docusate Sodium TABLET 2 TAB PO ×2 (08:30→21:15)
[2023-01-26] MEDS: LORazepam 1 MG TABLET PO ×2 (08:30→15:01)
[2023-01-26] MEDS: Tamsulosin HCL 0.4 MG CAPSULE PO (08:31)
[2023-01-26] MEDS: polyethylene glycoL 3350 17 GM POWD.PACK PO (08:32)
[2023-01-26 19:51] VITALS: BP 112/61; PULSE 71; RESP 16; TEMP 36.6; O2SAT 97
[2023-01-26] MEDS: cloZAPine 100 MG TABLET 300 MG PO (21:08)
--- NOTE | 2023-01-26 22:38 | P.PNPSI_ITS ---
Subjective Subjective Date of Service: 01/26/23 Reason For Visit: Psychosis Subjective Notes: Conditional Voluntary Healthcare Proxy: No Guardianship: No Interim History: Patient generally improved orozco affect tolerating ECT Medication Compliance: Yes Mental Status Exam Mental Status Exam Narrative: Appearance: wearing mix of hospital and street clothes, fair eye contact, in NAD Behavior: cooperative Psychomotor: retardation, less than previous Speech: soft, terse, non-spontaneous TP: linear slowed TC: no delusions or paranoia expressed but internally preoccupied Affect: constricted, hypo-intense mood: flat SI: none expressed HI: none expressed VH/AH: none expressed Insight/judgment: fair x 2. Memory/cog: alert, oriented x 3. Diagnostics Vital Signs (24Hr): Vital Signs - 24 hr 01/26/23 07:53 Temperature 97.1 F Pulse Rate 71 Respiratory Rate 16 Blood Pressure 137/74 Pulse Oximetry 94 Oxygen Delivery Method Room Air BMI result Body Mass Index 31.2 Labs 01/03/23 17:40 01/26/23 06:37 Labs: Laboratory Results - last 48 hr 01/20/23 01/25/23 01/26/23 08:37 06:06 06:37 Creatinine 1.10 Estim Creat Clear Calc 84.3 Estimated GFR > 60 POC Glucose 106 Clozapine 408 Norclozapine 258 01/26/23 07:52 Creatinine Estim Creat Clear Calc Estimated GFR POC Glucose 116 H Clozapine Norclozapine Medications Medications Current Medications Acetaminophen (Acetaminophen 325 Mg Tablet) 650 mg PO Q6H PRN PRN Reason: Headache/Pain Mild Scale (1-3) Last Admin: 01/12/23 22:13 Dose: 650 mg Al Hydroxide/Mg Hydroxide (Magnesium Hydrox/Alum Hydrox 30 Ml Oral.Susp) 30 ml PO Q6H PRN PRN Reason: Heartburn/Nausea Last Admin: 01/05/23 11:31 Dose: 30 ml Bisacodyl (Bisacodyl 10 Mg Supp.Rect) 10 mg [place] DAILY PRN PRN Reason: Constipation Last Admin: 01/25/23 11:40 Dose: 10 mg Clozapine (Clozapine 100 Mg Tablet) 300 mg PO BEDTIME [facility] Last Admin: 01/26/23 21:08 Dose: 300 mg Hydroxyzine HCl (Hydroxyzine Hcl 25 Mg Tablet) 25 mg PO Q6H PRN PRN Reason: Anxiety Lorazepam (Lorazepam 1 Mg Tablet) 1 mg PO TID [facility] Last Admin: 01/26/23 21:12 Dose: Not Given Magnesium Hydroxide (Milk Of Magnesia 30 Ml Oral.Susp) 30 ml PO DAILY PRN PRN Reason: Constipation Metformin HCl (Metformin Hcl Er 500 Mg Tab.Er.24h) 500 mg PO DAILY [facility] Last Admin: 01/26/23 08:29 Dose: 500 mg Nicotine Polacrilex (Nicotine Polacrilex 2 Mg Gum) 4 mg BUCCAL Q2H PRN PRN Reason: Nicotine Cravings Omeprazole (Omeprazole 20 Mg Capsule.Dr) 20 mg PO BID@0630,1630 [facility] Last Admin: 01/26/23 16:31 Dose: 20 mg Ondansetron HCl (Ondansetron Hcl 4 Mg/2 Ml Vial) 4 mg IVPUSH ONCE PRN PRN Reason: Nausea and Vomiting Polyethylene Glycol (Polyethylene Glycol 3350 17 Gm Powd.Pack) 17 gm PO DAILY [facility] Last Admin: 01/26/23 08:32 Dose: 17 gm Senna/Docusate Sodium (Sennosides/Docusate Sodium Tablet) 2 tab PO BID [facility] Last Admin: 01/26/23 21:15 Dose: 2 tab Sertraline HCl (Sertraline Hcl 50 Mg Tablet) 150 mg PO DAILY [facility] Last Admin: 01/26/23 08:30 Dose: 150 mg Tamsulosin HCl (Tamsulosin Hcl 0.4 Mg Capsule) 0.4 mg PO DAILY [facility] Last Admin: 01/26/23 08:31 Dose: 0.4 mg Trazodone HCl (Trazodone Hcl 50 Mg Tablet) 50 mg PO BEDTIME MRX1 PRN PRN Reason: Insomnia Last Admin: 01/10/23 19:53 Dose: 50 mg Allergies Allergies Allergy/AdvReac Type Severity Reaction Status Date / Time No Known Allergies [NKA] Allergy Unknown NONE Verified 12/21/22 09:41 Assessment & Plan Assessment & Plan (1) Schizoaffective disorder, depressive type: Status: Acute Code(s): F25.1 - Schizoaffective disorder, depressive type Plan 01/04: continue outpt medications regimen for now. recent onset of mvmts which appear c/w EPS; unclear why movements have begun. trend Sx. T/C ECT if indicated; pt has h/o ECT with some response. 01/05- pt reports hearing voices, taking clozaril. will check clozaril level. decrease sertraline as it worsens psychosis. order bladder scan POST VOID, may need straigh cath if PVR>300ml. sennakot BID. Pt appears with chest congestion, excessive secretions. 01/06: continue current mgmt. IVM have resolved. T/C anti-ACh agent if sialorrhea continues. declines ECT at present. feels changed from admission, unable to express in what way. 01/08: no changes 01/09: says he is depressed, expresses interest in ECT. consult [place] and obtain medical clearance. continue current medication. 01/10: medically cleared for ECT. seen by [facility]; awaiting go-ahead from [place] for ECT. continue current medications for now. stable presentation, depressed and severely PMR. 01/11: continue current mgmt. ECT to start monday. slightly faster responses today. 01/12: slower today, no substantial change in past couple of days. ECT tomorrow morning. 01/13: ECY #1 completed this morning. no negative events. continue current mgmt. ECT #2 monday. 01/14: Tolerated 1st ECT bitemporally continue plan of care on a decreased dose of lorazepam 01/15: Continue ECT try and limit lorazepam but if needed may need to increase does cannot was reversed with flumazenil. 01/16: tolerated ECT #2 today. slowed from weekend. continue current mgmt. 01/17: ambulating in the milieu, less PMR. continue current mgmt. 01/18: ECT #3 completed today. slightly more active in the milieu the past 36 hours. 01/19: less slowed than previously. up and about the unit. c/o CP when lying down, agreed to trial of omeprazole 20 BID. 01/20: missed ECT this morning due to having eaten some breakfast. remains slowed but improved from admission. continue current mgmt. 01/21: Continue current regimen and plans. Continue ECT on Monday. 01/22: Continue current plans and regimen. 01/23: ECT #4 completed this morning. more up and about, better related. 01/24/23 pt somewhat flat some internal preoccupation cont ect in am 01/25/2023 Use wedge when sleeping to decrease the risk of aspiration consider Robinul but would increase severe constipation risk questionable history of ALFREDO trying clarify continue ECT patient improved sertraline increased 01/26/2023 Continue ECT Reason for continued inpatient stay Substantial Risk for: rapid decompensation Time Spent With Patient Time: Total time managing care of this patient today ____ minutes.
[2023-01-27] VITALS (10 sets, daily range): BP systolic 129–156; BP diastolic 66–91; PULSE 75–90; RESP 15–21; TEMP 36.1–36.7; O2SAT 95–98
[2023-01-27 06:19] LABS: Glucose, Whole Blood 115 mg/dL (60-115)
--- NOTE | 2023-01-27 06:51 | P.CONAN_ITS ---
FORM[facility]LY [facility] Active Problems Active Problems: All Active Problems (Updated 01/09/23 @ 21:06 by ALEC Agustin) Routine medical exam (Acute) Schizoaffective disorder, depressive type (Acute) Schizophrenia, catatonic (Acute) Mild sleep apnea (Acute) Nocturnal hypoxia (Acute) Joint inflammation of right hand and wrist (Acute) Cough (Acute) Benign prostate hyperplasia (Acute) Adult general medical exam (Acute) Essential hypertension (Acute) Right hip pain (Acute) Status post fall (Acute) Screening for colon cancer (Acute) Screening for prostate cancer (Acute) Essential (primary) hypertension (Acute) Diabetes mellitus (Acute) Past Medical History Medical History Schizophrenia, catatonic BPH (benign prostatic hyperplasia) Screening for colon cancer Screening for prostate cancer Essential (primary) hypertension Diabetes mellitus Family History Family History Mother Cancer Father Kidney agenesis Family history of problems with anesthesia: No Surgical History Surgical History History of colonoscopy History of tooth extraction History of root canal procedure History of Problems with Anesthesia: No Social History Social History Household Members: None Housing: Apartment Do you presently have visiting nurse or other home services: Yes ([employer]) Alcohol intake: never Patient Tobacco Use Status: Never used Tobacco Smoked in Last 30 Days: No e-Cigarette/Vaping Use: Never Used Second Hand Smoke Exposure: No Use of substances other than those prescribed or required for medical reasons: No Currently Displaying Signs/Symptoms of Drug Intoxication Withdrawal: No Any prior treatment program specific to substance use: No Have you been hit, kicked, punched, or otherwise hurt by someone within the past year? If so, by whom?: No Do you feel safe in your current relationship?: No Current Relationship Is there a partner from a previous relationship who is making you feel unsafe now?: No Are you made to feel afraid or neglected: No Advance Directives: No Advance Directives Information Provided: No Do you have thoughts of harming others: None Do you have a plan to hurt others: No Plan Recently lost weight without trying: Unsure Poor oral hygiene: No service: No Current occupational status: employed Sexual orientation: Unable to collect Cognitive needs: No Hearing needs: No Vision needs: No Meds Allergies Allergy/AdvReac Type Severity Reaction Status Date / Time No Known Allergies [NKA] Allergy Unknown NONE Verified 12/21/22 09:41 Active Medications: Current Medications Acetaminophen (Acetaminophen 325 Mg Tablet) 650 mg PO Q6H PRN PRN Reason: Headache/Pain Mild Scale (1-3) Last Admin: 01/12/23 22:13 Dose: 650 mg Al Hydroxide/Mg Hydroxide (Magnesium Hydrox/Alum Hydrox 30 Ml Oral.Susp) 30 ml PO Q6H PRN PRN Reason: Heartburn/Nausea Last Admin: 01/05/23 11:31 Dose: 30 ml Bisacodyl (Bisacodyl 10 Mg Supp.Rect) 10 mg IN DAILY PRN PRN Reason: Constipation Last Admin: 01/25/23 11:40 Dose: 10 mg Clozapine (Clozapine 100 Mg Tablet) 300 mg PO BEDTIME [facility] Last Admin: 01/26/23 21:08 Dose: 300 mg Hydroxyzine HCl (Hydroxyzine Hcl 25 Mg Tablet) 25 mg PO Q6H PRN PRN Reason: Anxiety Lactated Ringer's (Lr) 1,000 mls @ 50 mls/hr IVCONT .Q20H [facility] Lorazepam (Lorazepam 1 Mg Tablet) 1 mg PO TID [facility] Last Admin: 01/26/23 21:12 Dose: Not Given Magnesium Hydroxide (Milk Of Magnesia 30 Ml Oral.Susp) 30 ml PO DAILY PRN PRN Reason: Constipation Metformin HCl (Metformin Hcl Er 500 Mg Tab.Er.24h) 500 mg PO DAILY [facility] Last Admin: 01/26/23 08:29 Dose: 500 mg Nicotine Polacrilex (Nicotine Polacrilex 2 Mg Gum) 4 mg BUCCAL Q2H PRN PRN Reason: Nicotine Cravings Omeprazole (Omeprazole 20 Mg Capsule.Dr) 20 mg PO BID@0630,1630 [facility] Last Admin: 01/26/23 16:31 Dose: 20 mg Ondansetron HCl (Ondansetron Hcl 4 Mg/2 Ml Vial) 4 mg IVPUSH ONCE PRN PRN Reason: Nausea and Vomiting Polyethylene Glycol (Polyethylene Glycol 3350 17 Gm Powd.Pack) 17 gm PO DAILY [facility] Last Admin: 01/26/23 08:32 Dose: 17 gm Senna/Docusate Sodium (Sennosides/Docusate Sodium Tablet) 2 tab PO BID [facility] Last Admin: 01/26/23 21:15 Dose: 2 tab Sertraline HCl (Sertraline Hcl 50 Mg Tablet) 150 mg PO DAILY [facility] Last Admin: 01/26/23 08:30 Dose: 150 mg Tamsulosin HCl (Tamsulosin Hcl 0.4 Mg Capsule) 0.4 mg PO DAILY [facility] Last Admin: 01/26/23 08:31 Dose: 0.4 mg Trazodone HCl (Trazodone Hcl 50 Mg Tablet) 50 mg PO BEDTIME MRX1 PRN PRN Reason: Insomnia Last Admin: 01/10/23 19:53 Dose: 50 mg Home Medications Medication Instructions Recorded Confirmed Last Taken Type lancets 28 gauge (FreeStyle 01/04/23 01/04/23 Unknown History Lancets) tamsulosin 0.4 mg capsule 0.4 mg PO DAILY 01/04/23 01/04/23 01/02/23 17:00 History Exam Exam Date and Time: January 27, 2023 0651 Height,Weight and Vital Signs: Height 5 ft 10 in Weight 98.702 kg Last Vital Signs Temp 97.2 F 01/27/23 06:38 Pulse 75 01/27/23 06:38 Resp 16 01/27/23 06:38 BP 139/78 01/27/23 06:38 Pulse Ox 95 01/27/23 06:38 O2 Del Method Room Air 01/27/23 06:38 O2 Flow Rate 2 01/25/23 08:45 Pertinent Lab Results Pertinent Lab Results: Laboratory Tests 01/03/23 01/04/23 01/04/23 17:40 00:55 10:38 WBC 7.8 RBC 4.42 L Hgb 12.7 L Hct 40.1 L MCV 90.7 MCH 28.7 MCHC 31.7 RDW 13.2 Plt Count 166 MPV 11.0 Immature Gran % (Auto) 0.5 H Neut % (Auto) 71.4 Lymph % (Auto) 20.7 [place] % (Auto) 7.4 Eos % (Auto) 0.0 Baso % (Auto) 0.0 Lymph # (Auto) 1.6 [place] # (Auto) 0.6 Eos # (Auto) 0.0 Baso # (Auto) 0.0 Abs Immat Gran (auto) 0.04 H Absolute Neuts (auto) 5.6 Absolute Nucleated RBC 0.000 Nucleated RBC % (auto) 0.0 Sodium 140 Potassium 4.1 Chloride 105 Carbon Dioxide 25 Anion Gap 14 BUN 19 H Creatinine 1.35 Estim Creat Clear Calc 65.9 Estimated GFR 54 POC Glucose 108 Random Glucose 87 Calcium 9.5 D Magnesium 2.1 Total Bilirubin 0.5 Direct Bilirubin 0.2 AST 12 ALT 6 Alkaline Phosphatase 59 Total Protein 7.2 Albumin 4.2 Urine Color Yellow Urine Appearance Clear Urine pH 6.5 Ur Specific [place] 1.015 Urine Protein Negative Urine Glucose (UA) Negative Urine Ketones Negative Urine Blood Negative Urine Nitrite Negative Ur Leukocyte Esterase Negative Urine Opiates Screen Not Detected Urine Fentanyl Screen Not Detected Ur Barbiturates Screen Not Detected Ur Phencyclidine Scrn Not Detected Clozapine Norclozapine Ur Amphetamines Screen Not Detected U Benzodiazepines Scrn Not Detected [place] 0.72 Urine Cocaine Screen Not Detected U Marijuana (THC) Screen Not Detected Ethyl Alcohol < 10 COVID-19 ([facility]) Negative COVID-19 [facility] See Note 01/05/23 01/05/23 01/05/23 08:23 08:36 13:38 WBC RBC Hgb Hct MCV MCH MCHC RDW Plt Count MPV Immature Gran % (Auto) Neut % (Auto) Lymph % (Auto) [place] % (Auto) Eos % (Auto) Baso % (Auto) Lymph # (Auto) [place] # (Auto) Eos # (Auto) Baso # (Auto) Abs Immat Gran (auto) Absolute Neuts (auto) Absolute Nucleated RBC Nucleated RBC % (auto) Sodium 141 Potassium 4.0 Chloride 105 Carbon Dioxide 28 Anion Gap 12 BUN 24 H Creatinine 1.39 Estim Creat Clear Calc 64.0 Estimated GFR 52 POC Glucose 107 Random Glucose 120 H Calcium 9.5 Magnesium Total Bilirubin 0.5 Direct Bilirubin AST 9 ALT < 5 Alkaline Phosphatase 57 Total Protein 6.8 Albumin 4.0 Urine Color Urine Appearance Urine pH Ur Specific [place] Urine Protein Urine Glucose (UA) Urine Ketones Urine Blood Urine Nitrite Ur Leukocyte Esterase Urine Opiates Screen Urine Fentanyl Screen Ur Barbiturates Screen Ur Phencyclidine Scrn Clozapine Norclozapine Ur Amphetamines Screen U Benzodiazepines Scrn [place] 0.85 Urine Cocaine Screen U Marijuana (THC) Screen Ethyl Alcohol COVID-19 ([facility]) COVID-19 Clin Com 01/06/23 01/07/23 01/08/23 07:43 08:13 08:02 WBC RBC Hgb Hct MCV MCH MCHC RDW Plt Count MPV Immature Gran % (Auto) Neut % (Auto) Lymph % (Auto) [place] % (Auto) Eos % (Auto) Baso % (Auto) Lymph # (Auto) [place] # (Auto) Eos # (Auto) Baso # (Auto) Abs Immat Gran (auto) Absolute Neuts (auto) Absolute Nucleated RBC Nucleated RBC % (auto) Sodium Potassium Chloride Carbon Dioxide Anion Gap BUN Creatinine Estim Creat Clear Calc Estimated GFR POC Glucose 112 102 96 Random Glucose Calcium Magnesium Total Bilirubin Direct Bilirubin AST ALT Alkaline Phosphatase Total Protein Albumin Urine Color Urine Appearance Urine pH Ur Specific [place] Urine Protein Urine Glucose (UA) Urine Ketones Urine Blood Urine Nitrite Ur Leukocyte Esterase Urine Opiates Screen Urine Fentanyl Screen Ur Barbiturates Screen Ur Phencyclidine Scrn Clozapine Norclozapine Ur Amphetamines Screen U Benzodiazepines Scrn [place] Urine Cocaine Screen U Marijuana (THC) Screen Ethyl Alcohol COVID-19 ([facility]) COVID-19 [employer] 01/09/23 01/10/23 01/10/23 07:54 07:49 08:01 WBC RBC Hgb Hct MCV MCH MCHC RDW Plt Count MPV Immature Gran % (Auto) Neut % (Auto) Lymph % (Auto) [place] % (Auto) Eos % (Auto) Baso % (Auto) Lymph # (Auto) [place] # (Auto) Eos # (Auto) Baso # (Auto) Abs Immat Gran (auto) Absolute Neuts (auto) 4.7 Absolute Nucleated RBC Nucleated RBC % (auto) Sodium Potassium Chloride Carbon Dioxide Anion Gap BUN Creatinine Estim Creat Clear Calc Estimated GFR POC Glucose 108 101 Random Glucose Calcium Magnesium Total Bilirubin Direct Bilirubin AST ALT Alkaline Phosphatase Total Protein Albumin Urine Color Urine Appearance Urine pH Ur Specific [place] Urine Protein Urine Glucose (UA) Urine Ketones Urine Blood Urine Nitrite Ur Leukocyte Esterase Urine Opiates Screen Urine Fentanyl Screen Ur Barbiturates Screen Ur Phencyclidine Scrn Clozapine Norclozapine Ur Amphetamines Screen U Benzodiazepines Scrn [place] Urine Cocaine Screen U Marijuana (THC) Screen Ethyl Alcohol COVID-19 ([facility]) COVID-19 [employer] 01/11/23 01/12/23 01/12/23 08:27 08:46 10:50 WBC RBC Hgb Hct MCV MCH MCHC RDW Plt Count MPV Immature Gran % (Auto) Neut % (Auto) Lymph % (Auto) [place] % (Auto) Eos % (Auto) Baso % (Auto) Lymph # (Auto) [place] # (Auto) Eos # (Auto) Baso # (Auto) Abs Immat Gran (auto) Absolute Neuts (auto) Absolute Nucleated RBC Nucleated RBC % (auto) Sodium Potassium Chloride Carbon Dioxide Anion Gap BUN Creatinine 1.20 Estim Creat Clear Calc 76.7 Estimated GFR > 60 POC Glucose 94 121 H Random Glucose Calcium Magnesium Total Bilirubin Direct Bilirubin AST ALT Alkaline Phosphatase Total Protein Albumin Urine Color Urine Appearance Urine pH Ur Specific [place] Urine Protein Urine Glucose (UA) Urine Ketones Urine Blood Urine Nitrite Ur Leukocyte Esterase Urine Opiates Screen Urine Fentanyl Screen Ur Barbiturates Screen Ur Phencyclidine Scrn Clozapine Norclozapine Ur Amphetamines Screen U Benzodiazepines Scrn [place] Urine Cocaine Screen U Marijuana (THC) Screen Ethyl Alcohol COVID-19 ([facility]) [employer] 01/13/23 01/14/23 01/15/23 08:05 08:04 08:05 WBC RBC Hgb Hct MCV MCH MCHC RDW Plt Count MPV Immature Gran % (Auto) Neut % (Auto) Lymph % (Auto) [place] % (Auto) Eos % (Auto) Baso % (Auto) Lymph # (Auto) [place] # (Auto) Eos # (Auto) Baso # (Auto) Abs Immat Gran (auto) Absolute Neuts (auto) Absolute Nucleated RBC Nucleated RBC % (auto) Sodium Potassium Chloride Carbon Dioxide Anion Gap BUN Creatinine Estim Creat Clear Calc Estimated GFR POC Glucose 102 94 94 Random Glucose Calcium Magnesium Total Bilirubin Direct Bilirubin AST ALT Alkaline Phosphatase Total Protein Albumin Urine Color Urine Appearance Urine pH Ur Specific [place] Urine Protein Urine Glucose (UA) Urine Ketones Urine Blood Urine Nitrite Ur Leukocyte Esterase Urine Opiates Screen Urine Fentanyl Screen Ur Barbiturates Screen Ur Phencyclidine Scrn Clozapine Norclozapine Ur Amphetamines Screen U Benzodiazepines Scrn [place] Urine Cocaine Screen U Marijuana (THC) Screen Ethyl Alcohol COVID-19 ([facility]) [employer] 01/16/23 01/17/23 01/17/23 06:07 07:59 08:10 WBC RBC Hgb Hct MCV MCH MCHC RDW Plt Count MPV Immature Gran % (Auto) Neut % (Auto) Lymph % (Auto) [place] % (Auto) Eos % (Auto) Baso % (Auto) Lymph # (Auto) [place] # (Auto) Eos # (Auto) Baso # (Auto) Abs Immat Gran (auto) Absolute Neuts (auto) 3.6 Absolute Nucleated RBC Nucleated RBC % (auto) Sodium Potassium Chloride Carbon Dioxide Anion Gap BUN Creatinine Estim Creat Clear Calc Estimated GFR POC Glucose 100 94 Random Glucose Calcium Magnesium Total Bilirubin Direct Bilirubin AST ALT Alkaline Phosphatase Total Protein Albumin Urine Color Urine Appearance Urine pH Ur Specific [place] Urine Protein Urine Glucose (UA) Urine Ketones Urine Blood Urine Nitrite Ur Leukocyte Esterase Urine Opiates Screen Urine Fentanyl Screen Ur Barbiturates Screen Ur Phencyclidine Scrn Clozapine Norclozapine Ur Amphetamines Screen U Benzodiazepines Scrn [place] Urine Cocaine Screen U Marijuana (THC) Screen Ethyl Alcohol COVID-19 ([facility]) [employer] 01/18/23 01/19/23 01/19/23 07:56 07:42 08:17 WBC RBC Hgb Hct MCV MCH MCHC RDW Plt Count MPV Immature Gran % (Auto) Neut % (Auto) Lymph % (Auto) [place] % (Auto) Eos % (Auto) Baso % (Auto) Lymph # (Auto) [place] # (Auto) Eos # (Auto) Baso # (Auto) Abs Immat Gran (auto) Absolute Neuts (auto) Absolute Nucleated RBC Nucleated RBC % (auto) Sodium Potassium Chloride Carbon Dioxide Anion Gap BUN Creatinine 1.13 Estim Creat Clear Calc 81.4 Estimated GFR > 60 POC Glucose 98 93 Random Glucose Calcium Magnesium Total Bilirubin Direct Bilirubin AST ALT Alkaline Phosphatase Total Protein Albumin Urine Color Urine Appearance Urine pH Ur Specific [place] Urine Protein Urine Glucose (UA) Urine Ketones Urine Blood Urine Nitrite Ur Leukocyte Esterase Urine Opiates Screen Urine Fentanyl Screen Ur Barbiturates Screen Ur Phencyclidine Scrn Clozapine Norclozapine Ur Amphetamines Screen U Benzodiazepines Scrn [place] Urine Cocaine Screen U Marijuana (THC) Screen Ethyl Alcohol COVID-19 ([facility]) [employer] 01/20/23 01/20/23 01/21/23 07:53 08:37 07:54 WBC RBC Hgb Hct MCV MCH MCHC RDW Plt Count MPV Immature Gran % (Auto) Neut % (Auto) Lymph % (Auto) [place] % (Auto) Eos % (Auto) Baso % (Auto) Lymph # (Auto) [place] # (Auto) Eos # (Auto) Baso # (Auto) Abs Immat Gran (auto) Absolute Neuts (auto) Absolute Nucleated RBC Nucleated RBC % (auto) Sodium Potassium Chloride Carbon Dioxide Anion Gap BUN Creatinine Estim Creat Clear Calc Estimated GFR POC Glucose 93 102 Random Glucose Calcium Magnesium Total Bilirubin Direct Bilirubin AST ALT Alkaline Phosphatase Total Protein Albumin Urine Color Urine Appearance Urine pH Ur Specific [place] Urine Protein Urine Glucose (UA) Urine Ketones Urine Blood Urine Nitrite Ur Leukocyte Esterase Urine Opiates Screen Urine Fentanyl Screen Ur Barbiturates Screen Ur Phencyclidine Scrn Clozapine 408 Norclozapine 258 Ur Amphetamines Screen U Benzodiazepines Scrn [place] Urine Cocaine Screen U Marijuana (THC) Screen Ethyl Alcohol COVID-19 ([facility]) [employer] 01/22/23 01/23/23 01/24/23 08:00 06:39 08:11 WBC RBC Hgb Hct MCV MCH MCHC RDW Plt Count MPV Immature Gran % (Auto) Neut % (Auto) Lymph % (Auto) [place] % (Auto) Eos % (Auto) Baso % (Auto) Lymph # (Auto) [place] # (Auto) Eos # (Auto) Baso # (Auto) Abs Immat Gran (auto) Absolute Neuts (auto) Absolute Nucleated RBC Nucleated RBC % (auto) Sodium Potassium Chloride Carbon Dioxide Anion Gap BUN Creatinine Estim Creat Clear Calc Estimated GFR POC Glucose 104 93 101 Random Glucose Calcium Magnesium Total Bilirubin Direct Bilirubin AST ALT Alkaline Phosphatase Total Protein Albumin Urine Color Urine Appearance Urine pH Ur Specific [place] Urine Protein Urine Glucose (UA) Urine Ketones Urine Blood Urine Nitrite Ur Leukocyte Esterase Urine Opiates Screen Urine Fentanyl Screen Ur Barbiturates Screen Ur Phencyclidine Scrn Clozapine Norclozapine Ur Amphetamines Screen U Benzodiazepines Scrn [place] Urine Cocaine Screen U Marijuana (THC) Screen Ethyl Alcohol COVID-19 ([facility]) COVID-[employer] 01/24/23 01/24/23 01/25/23 08:51 08:51 06:06 WBC RBC Hgb Hct MCV MCH MCHC RDW Plt Count MPV Immature Gran % (Auto) Neut % (Auto) Lymph % (Auto) [place] % (Auto) Eos % (Auto) Baso % (Auto) Lymph # (Auto) [place] # (Auto) Eos # (Auto) Baso # (Auto) Abs Immat Gran (auto) Absolute Neuts (auto) Cancelled 5.4 Absolute Nucleated RBC Nucleated RBC % (auto) Sodium Potassium Chloride Carbon Dioxide Anion Gap BUN Creatinine Estim Creat Clear Calc Estimated GFR POC Glucose 106 Random Glucose Calcium Magnesium Total Bilirubin Direct Bilirubin AST ALT Alkaline Phosphatase Total Protein Albumin Urine Color Urine Appearance Urine pH Ur Specific [place] Urine Protein Urine Glucose (UA) Urine Ketones Urine Blood Urine Nitrite Ur Leukocyte Esterase Urine Opiates Screen Urine Fentanyl Screen Ur Barbiturates Screen Ur Phencyclidine Scrn Clozapine Norclozapine Ur Amphetamines Screen U Benzodiazepines Scrn [place] Urine Cocaine Screen U Marijuana (THC) Screen Ethyl Alcohol COVID-19 ([facility]) COVID-19 Clin Com 01/26/23 01/26/23 01/27/23 06:37 07:52 06:15 WBC RBC Hgb Hct MCV MCH MCHC RDW Plt Count MPV Immature Gran % (Auto) Neut % (Auto) Lymph % (Auto) [place] % (Auto) Eos % (Auto) Baso % (Auto) Lymph # (Auto) [place] # (Auto) Eos # (Auto) Baso # (Auto) Abs Immat Gran (auto) Absolute Neuts (auto) Absolute Nucleated RBC Nucleated RBC % (auto) Sodium Potassium Chloride Carbon Dioxide Anion Gap BUN Creatinine 1.10 Estim Creat Clear Calc 84.3 Estimated GFR > 60 POC Glucose 116 H 115 Random Glucose Calcium Magnesium Total Bilirubin Direct Bilirubin AST ALT Alkaline Phosphatase Total Protein Albumin Urine Color Urine Appearance Urine pH Ur Specific [place] Urine Protein Urine Glucose (UA) Urine Ketones Urine Blood Urine Nitrite Ur Leukocyte Esterase Urine Opiates Screen Urine Fentanyl Screen Ur Barbiturates Screen Ur Phencyclidine Scrn Clozapine Norclozapine Ur Amphetamines Screen U Benzodiazepines Scrn [place] Urine Cocaine Screen U Marijuana (THC) Screen Ethyl Alcohol COVID-19 ([facility]) COVID-19 Clin Com Airway Mallampati Class: II TM Dist: >3cm Neck ROM: Full Heart: rrr Lungs: cta Assessment and Plan Assessment Anesthesia Assessment: Anesthesia Plan Discussed and Chart Reviewed Final Anesthetic Review Family History of Problems with Anesthesia: No History of Problems with Anesthesia: No NPO: Yes ASA Class: III Final Preanesthetic Review: No Changes in Pt Med Stat, Meds/Allgs Chart Reviewed and Consent Obtained/Reviewed Patient Risk: Intermediate Procedure Risk: Intermediate Anesthetic Plan Anesthetic Plan: GA Disposition: Standard PACU
--- NOTE | 2023-01-27 07:49 | MHC.SHP ---
Pre-Procedural Eval Section A Date of Service: 01/27/23 The patient is an INPATIENT: Yes Changes since office visit: Yes Changes in Medication and Yes Patient answered all questions; No Cold of Flu in the past 2 weeks and No New Medical Problems The History & Physical has been completed within 30 days and I have reviewed it.: Yes Section B Chief Complaint: Psychosis Allergies: Allergies Allergy/AdvReac Type Severity Reaction Status Date / Time No Known Allergies [NKA] Allergy Unknown NONE Verified 12/21/22 09:41 Plan I have reviewed the history and physical and performed a pertinent physical examination on my patient. No changes have occurred unless specified. Time Spent With Patient Time: Total time managing care of this patient today ____ minutes.
[2023-01-27] MEDS: LORazepam 2 MG/ML VIAL 1 MG IVPUSH (08:33)
[2023-01-27 09:21] LABS: Glucose, Whole Blood 116 mg/dL (60-115)
[2023-01-27] MEDS: polyethylene glycoL 3350 17 GM POWD.PACK PO (09:46)
[2023-01-27] MEDS: Sennosides/Docusate Sodium TABLET 2 TAB PO ×2 (09:46→20:25)
[2023-01-27] MEDS: Omeprazole 20 MG CAPSULE.DR PO ×2 (09:47→16:58)
[2023-01-27] MEDS: Sertraline HCL 50 MG TABLET 150 MG PO (09:47)
[2023-01-27] MEDS: LORazepam 1 MG TABLET PO ×3 (09:47→20:25)
[2023-01-27] MEDS: metFORMIN HCl ER 500 MG TAB.ER.24H PO (09:47)
[2023-01-27] MEDS: Tamsulosin HCL 0.4 MG CAPSULE PO (09:47)
--- NOTE | 2023-01-27 13:39 | HO.PSYCHPN ---
Subjective Subjective Date of Service: 01/27/23 Reason For Visit: Psychosis Interim History: reports feeling better. more talkative, spontaneous. cognition may be impaired. informed of plan for 2 more ECTs and then D/C. per staff, ECT done, smiling. showered yesterday. shaved. dep 6, anx 4. less MIGUEL. denies AVH. 2 more ECT. D/C late next week. Mental Status Exam Mental Status Exam Narrative: Appearance: wearing street clothes, fair eye contact, in NAD Behavior: cooperative Psychomotor: retardation, less than previous Speech: soft, terse, spontaneous TP: linear, logical, normal rate TC: no delusions or paranoia expressed Affect: constricted, hypo-intense mood: improved SI: none expressed HI: none expressed VH/AH: none expressed Insight/judgment: fair x 2. Memory/cog: alert, oriented x 3. Diagnostics Vital Signs (24Hr): Vital Signs - 24 hr 01/26/23 19:51 01/27/23 05:50 01/27/23 06:38 Temperature 97.9 F 97.1 F 97.2 F Pulse Rate 71 81 75 Respiratory Rate 16 16 16 Blood Pressure 112/61 129/75 139/78 Pulse Oximetry 97 96 95 Oxygen Delivery Method Room Air Room Air Oxygen Flow Rate 01/27/23 08:07 01/27/23 08:12 01/27/23 08:17 Temperature 97.0 F Pulse Rate 87 88 90 Respiratory Rate 16 17 21 H Blood Pressure 155/91 H 151/85 H 135/84 Pulse Oximetry 98 97 98 Oxygen Delivery Method Nasal Cannula with ETCO2 Nasal Cannula with ETCO2 Nasal Cannula with ETCO2 Oxygen Flow Rate 2 2 2 01/27/23 08:22 01/27/23 08:37 01/27/23 08:54 Temperature 97.0 F Pulse Rate 83 81 77 Respiratory Rate 17 17 16 Blood Pressure 151/88 H 145/87 H 139/89 Pulse Oximetry 98 97 98 Oxygen Delivery Method Room Air Room Air Room Air Oxygen Flow Rate BMI result Body Mass Index 31.2 Labs 01/03/23 17:40 01/26/23 06:37 Labs: Laboratory Results - last 48 hr 01/20/23 01/26/23 01/26/23 08:37 06:37 07:52 Creatinine 1.10 Estim Creat Clear Calc 84.3 Estimated GFR > 60 POC Glucose 116 H Clozapine 408 Norclozapine 258 01/27/23 01/27/23 06:15 09:15 Creatinine Estim Creat Clear Calc Estimated GFR POC Glucose 115 116 H Clozapine Norclozapine Medications Medications Current Medications Acetaminophen (Acetaminophen 325 Mg Tablet) 650 mg PO Q6H PRN PRN Reason: Headache/Pain Mild Scale (1-3) Last Admin: 01/12/23 22:13 Dose: 650 mg Al Hydroxide/Mg Hydroxide (Magnesium Hydrox/Alum Hydrox 30 Ml Oral.Susp) 30 ml PO Q6H PRN PRN Reason: Heartburn/Nausea Last Admin: 01/05/23 11:31 Dose: 30 ml Bisacodyl (Bisacodyl 10 Mg Supp.Rect) 10 mg [place] DAILY PRN PRN Reason: Constipation Last Admin: 01/25/23 11:40 Dose: 10 mg Clozapine (Clozapine 100 Mg Tablet) 300 mg PO BEDTIME [facility] Last Admin: 01/26/23 21:08 Dose: 300 mg Hydroxyzine HCl (Hydroxyzine Hcl 25 Mg Tablet) 25 mg PO Q6H PRN PRN Reason: Anxiety Lorazepam (Lorazepam 1 Mg Tablet) 1 mg PO TID [facility] Last Admin: 01/27/23 09:47 Dose: 1 mg Magnesium Hydroxide (Milk Of Magnesia 30 Ml Oral.Susp) 30 ml PO DAILY PRN PRN Reason: Constipation Metformin HCl (Metformin Hcl Er 500 Mg Tab.Er.24h) 500 mg PO DAILY [facility] Last Admin: 01/27/23 09:47 Dose: 500 mg Nicotine Polacrilex (Nicotine Polacrilex 2 Mg Gum) 4 mg BUCCAL Q2H PRN PRN Reason: Nicotine Cravings Omeprazole (Omeprazole 20 Mg Capsule.Dr) 20 mg PO BID@0630,1630 [facility] Last Admin: 01/27/23 09:47 Dose: 20 mg Ondansetron HCl (Ondansetron Hcl 4 Mg/2 Ml Vial) 4 mg IVPUSH ONCE PRN PRN Reason: Nausea and Vomiting Polyethylene Glycol (Polyethylene Glycol 3350 17 Gm Powd.Pack) 17 gm PO DAILY [facility] Last Admin: 01/27/23 09:46 Dose: 17 gm Senna/Docusate Sodium (Sennosides/Docusate Sodium Tablet) 2 tab PO BID [facility] Last Admin: 01/27/23 09:46 Dose: 2 tab Sertraline HCl (Sertraline Hcl 50 Mg Tablet) 150 mg PO DAILY [facility] Last Admin: 01/27/23 09:47 Dose: 150 mg Tamsulosin HCl (Tamsulosin Hcl 0.4 Mg Capsule) 0.4 mg PO DAILY [facility] Last Admin: 01/27/23 09:47 Dose: 0.4 mg Trazodone HCl (Trazodone Hcl 50 Mg Tablet) 50 mg PO BEDTIME MRX1 PRN PRN Reason: Insomnia Last Admin: 01/10/23 19:53 Dose: 50 mg Allergies Allergies Allergy/AdvReac Type Severity Reaction Status Date / Time No Known Allergies [NKA] Allergy Unknown NONE Verified 12/21/22 09:41 Assessment & Plan Assessment & Plan (1) Schizoaffective disorder, depressive type: Status: Acute Code(s): F25.1 - Schizoaffective disorder, depressive type Plan 01/04: continue outpt medications regimen for now. recent onset of mvmts which appear c/w EPS; unclear why movements have begun. trend Sx. T/C ECT if indicated; pt has h/o ECT with some response. 01/05- pt reports hearing voices, taking clozaril. will check clozaril level. decrease sertraline as it worsens psychosis. order bladder scan POST VOID, may need straigh cath if PVR>300ml. sennakot BID. Pt appears with chest congestion, excessive secretions. 01/06: continue current mgmt. IVM have resolved. T/C anti-ACh agent if sialorrhea continues. declines ECT at present. feels changed from admission, unable to express in what way. 01/08: no changes 01/09: says he is depressed, expresses interest in ECT. consult [facility] and obtain medical clearance. continue current medication. 01/10: medically cleared for ECT. seen by [facility]; awaiting go-ahead from [facility] for ECT. continue current medications for now. stable presentation, depressed and severely PMR. 01/11: continue current mgmt. ECT to start monday. slightly faster responses today. 01/12: slower today, no substantial change in past couple of days. ECT tomorrow morning. 01/13: ECY #1 completed this morning. no negative events. continue current mgmt. ECT #2 monday. 01/14: Tolerated 1st ECT bitemporally continue plan of care on a decreased dose of lorazepam 01/15: Continue ECT try and limit lorazepam but if needed may need to increase does cannot was reversed with flumazenil. 01/16: tolerated ECT #2 today. slowed from weekend. continue current mgmt. 01/17: ambulating in the milieu, less PMR. continue current mgmt. 01/18: ECT #3 completed today. slightly more active in the milieu the past 36 hours. 01/19: less slowed than previously. up and about the unit. c/o CP when lying down, agreed to trial of omeprazole 20 BID. 01/20: missed ECT this morning due to having eaten some breakfast. remains slowed but improved from admission. continue current mgmt. 01/21: Continue current regimen and plans. Continue ECT on Monday. 01/22: Continue current plans and regimen. 01/23: ECT #4 completed this morning. more up and about, better related. 01/24/23 pt somewhat flat some internal preoccupation cont ect in am 01/25/2023 Use wedge when sleeping to decrease the risk of aspiration consider Robinul but would increase severe constipation risk questionable history of ALFREDO trying clarify continue ECT patient improved sertraline increased 01/26/2023 Continue ECT 01/27: ECT #6 today, well-tolerated, improved processing speed and spontaneity of speech. continue for 2 more ECTs next week, then planning for discharge to home. Reason for continued inpatient stay Substantial Risk for: inability to function and rapid decompensation Time Spent With Patient Time: Total time managing care of this patient today __25__ minutes.
--- NOTE | 2023-01-27 14:40 | HO.ECTPROC ---
ECT Procedure Note Diagnosis/Treatment Date of Service: 01/27/23 Previous ECT Date: 01/25/23 Current Treatment Number: 7 Treatment: Series Interval Clinical Notes: pt doing better orozco affect no noted s/e Time: Total time managing care of this patient today ____ minutes. ECT Settings Device: THYMATRON DGx Electrode Placement: Bitemporal Program/Pulse Width: 0.50 Energy Percent: 100 Seizure Duration By EEG (in seconds): 18 Medications Administration General Anesthetic: Etomidate (18) Muscle Relaxant: Succinylcholine (120) Ancillary Medications Analgesics: Torodol - Pre ECT Anti-emetics: Zofran - Pre ECT Miscillaneous Medications: Other (lorazepam 1 mg ivp post ect) Airway Management Airway Management: Bag Mask Ventilation Treatment Recommendations Notes: lorazepam held night prior lower etom 16 mg Pt Tolerated Procedure w/o Issue: Yes
[2023-01-27] MEDS: cloZAPine 100 MG TABLET 300 MG PO (20:25)
[2023-01-28 08:00] VITALS: BP 112/56; PULSE 81; RESP 16; TEMP 36.6; O2SAT 94
[2023-01-28 08:02] LABS: Glucose, Whole Blood 122 mg/dL (60-115)
[2023-01-28] MEDS: Sertraline HCL 50 MG TABLET 150 MG PO (08:47)
[2023-01-28] MEDS: Omeprazole 20 MG CAPSULE.DR PO ×2 (08:48→15:42)
[2023-01-28] MEDS: Sennosides/Docusate Sodium TABLET 2 TAB PO ×2 (08:48→20:29)
[2023-01-28] MEDS: metFORMIN HCl ER 500 MG TAB.ER.24H PO (08:48)
[2023-01-28] MEDS: Tamsulosin HCL 0.4 MG CAPSULE PO (08:49)
[2023-01-28] MEDS: polyethylene glycoL 3350 17 GM POWD.PACK PO (08:49)
[2023-01-28] MEDS: LORazepam 1 MG TABLET PO ×3 (08:49→20:29)
--- NOTE | 2023-01-28 13:32 | P.PNPSI_ITS ---
Subjective Subjective Date of Service: 01/28/23 Reason For Visit: Psychosis Subjective Notes: Conditional Voluntary Interim History: The nursing staff reported that the patient had been more verbal, out in the common areas. He had ECT yesterday and he was incontinent after the procedure. On interview the patient reports that he is feeling much better, he looks alert and awake no evidence of catatonic symptoms. Mental Status Exam Mental Status Exam Patient Appearance: Well Grooomed and Appropriate Patient Orientation: Person and Situation Level of Consciousness: Awake and Appropriate Patient Behavior: Cooperative and Passive Mood Description: Calm Affect Description: Constricted Patient Cognition Impaired: No Ability to Follow Directions: Good Speech Pattern: Clear Hallucinations: None Delusions: Not Present Thought Process: Linear Thought Content: positive for [place] and positive for Poverty of Content Judgement: Fair Diagnostics Vital Signs (24Hr): Vital Signs - 24 hr 01/27/23 20:05 01/28/23 08:00 Temperature 97.8 F 98 F Pulse Rate 80 81 Respiratory Rate 15 16 Blood Pressure 156/66 H 112/56 L Pulse Oximetry 96 94 Oxygen Delivery Method Room Air Room Air BMI result Body Mass Index 31.2 Labs 01/03/23 17:40 01/26/23 06:37 Labs: Laboratory Results - last 48 hr 01/27/23 01/27/23 01/28/23 06:15 09:15 07:51 POC Glucose 115 116 H 122 H Medications Medications Current Medications Acetaminophen (Acetaminophen 325 Mg Tablet) 650 mg PO Q6H PRN PRN Reason: Headache/Pain Mild Scale (1-3) Last Admin: 01/12/23 22:13 Dose: 650 mg Al Hydroxide/Mg Hydroxide (Magnesium Hydrox/Alum Hydrox 30 Ml Oral.Susp) 30 ml PO Q6H PRN PRN Reason: Heartburn/Nausea Last Admin: 01/05/23 11:31 Dose: 30 ml Bisacodyl (Bisacodyl 10 Mg Supp.Rect) 10 mg [place] DAILY PRN PRN Reason: Constipation Last Admin: 01/25/23 11:40 Dose: 10 mg Clozapine (Clozapine 100 Mg Tablet) 300 mg PO BEDTIME [facility] Last Admin: 01/27/23 20:25 Dose: 300 mg Hydroxyzine HCl (Hydroxyzine Hcl 25 Mg Tablet) 25 mg PO Q6H PRN PRN Reason: Anxiety Lorazepam (Lorazepam 1 Mg Tablet) 1 mg PO TID [facility] Last Admin: 01/28/23 08:49 Dose: 1 mg Magnesium Hydroxide (Milk Of Magnesia 30 Ml Oral.Susp) 30 ml PO DAILY PRN PRN Reason: Constipation Metformin HCl (Metformin Hcl Er 500 Mg Tab.Er.24h) 500 mg PO DAILY [facility] Last Admin: 01/28/23 08:48 Dose: 500 mg Nicotine Polacrilex (Nicotine Polacrilex 2 Mg Gum) 4 mg BUCCAL Q2H PRN PRN Reason: Nicotine Cravings Omeprazole (Omeprazole 20 Mg Capsule.Dr) 20 mg PO BID@0630,1630 [facility] Last Admin: 01/28/23 08:48 Dose: 20 mg Ondansetron HCl (Ondansetron Hcl 4 Mg/2 Ml Vial) 4 mg IVPUSH ONCE PRN PRN Reason: Nausea and Vomiting Polyethylene Glycol (Polyethylene Glycol 3350 17 Gm Powd.Pack) 17 gm PO DAILY [facility] Last Admin: 01/28/23 08:49 Dose: 17 gm Senna/Docusate Sodium (Sennosides/Docusate Sodium Tablet) 2 tab PO BID [facility] Last Admin: 01/28/23 08:48 Dose: 2 tab Sertraline HCl (Sertraline Hcl 50 Mg Tablet) 150 mg PO DAILY [facility] Last Admin: 01/28/23 08:47 Dose: 150 mg Tamsulosin HCl (Tamsulosin Hcl 0.4 Mg Capsule) 0.4 mg PO DAILY [facility] Last Admin: 01/28/23 08:49 Dose: 0.4 mg Trazodone HCl (Trazodone Hcl 50 Mg Tablet) 50 mg PO BEDTIME MRX1 PRN PRN Reason: Insomnia Last Admin: 01/10/23 19:53 Dose: 50 mg Allergies Allergies Allergy/AdvReac Type Severity Reaction Status Date / Time No Known Allergies [NKA] Allergy Unknown NONE Verified 12/21/22 09:41 Assessment & Plan Assessment & Plan (1) Schizoaffective disorder, depressive type: Status: Acute Code(s): F25.1 - Schizoaffective disorder, depressive type Plan 01/04: continue outpt medications regimen for now. recent onset of mvmts which appear c/w EPS; unclear why movements have begun. trend Sx. T/C ECT if indicated; pt has h/o ECT with some response. 01/05- pt reports hearing voices, taking clozaril. will check clozaril level. decrease sertraline as it worsens psychosis. order bladder scan POST VOID, may need straigh cath if PVR>300ml. sennakot BID. Pt appears with chest congestion, excessive secretions. 01/06: continue current mgmt. IVM have resolved. T/C anti-ACh agent if sialorrhea continues. declines ECT at present. feels changed from admission, unable to express in what way. 01/08: no changes 01/09: says he is depressed, expresses interest in ECT. consult [facility] and obtain medical clearance. continue current medication. 01/10: medically cleared for ECT. seen by [facility]; awaiting go-ahead from [place] for ECT. continue current medications for now. stable presentation, depressed and severely PMR. 01/11: continue current mgmt. ECT to start monday. slightly faster responses today. 01/12: slower today, no substantial change in past couple of days. ECT tomorrow morning. 01/13: ECY #1 completed this morning. no negative events. continue current mgmt. ECT #2 monday. 01/14: Tolerated 1st ECT bitemporally continue plan of care on a decreased dose of lorazepam 01/15: Continue ECT try and limit lorazepam but if needed may need to increase does cannot was reversed with flumazenil. 01/16: tolerated ECT #2 today. slowed from weekend. continue current mgmt. 01/17: ambulating in the milieu, less PMR. continue current mgmt. 01/18: ECT #3 completed today. slightly more active in the milieu the past 36 hours. 01/19: less slowed than previously. up and about the unit. c/o CP when lying down, agreed to trial of omeprazole 20 BID. 01/20: missed ECT this morning due to having eaten some breakfast. remains slowed but improved from admission. continue current mgmt. 01/21: Continue current regimen and plans. Continue ECT on Monday. 01/22: Continue current plans and regimen. 01/23: ECT #4 completed this morning. more up and about, better related. 01/24/23 pt somewhat flat some internal preoccupation cont ect in am 01/25/2023 Use wedge when sleeping to decrease the risk of aspiration consider Robinul but would increase severe constipation risk questionable history of ALFREDO trying clarify continue ECT patient improved sertraline increased 01/26/2023 Continue ECT 01/27: ECT #6 today, well-tolerated, improved processing speed and spontaneity of speech. continue for 2 more ECTs next week, then planning for discharge to home. 02/07 continue same treatment. Reason for continued inpatient stay Substantial Risk for: inability to function, rapid decompensation and med/psych decompensation Time Spent With Patient Time: Total time managing care of this patient today __20__ minutes.
[2023-01-28 19:40] VITALS: BP 116/68; PULSE 76; RESP 16; TEMP 36.1; O2SAT 98
[2023-01-28] MEDS: cloZAPine 100 MG TABLET 300 MG PO (20:29)
[2023-01-29 08:00] VITALS: BP 119/70; PULSE 76; RESP 16; TEMP 36.6; O2SAT 97
[2023-01-29 08:15] LABS: Glucose, Whole Blood 98 mg/dL (60-115)
[2023-01-29] MEDS: Sennosides/Docusate Sodium TABLET 2 TAB PO ×2 (08:21→20:17)
[2023-01-29] MEDS: Sertraline HCL 50 MG TABLET 150 MG PO (08:21)
[2023-01-29] MEDS: Tamsulosin HCL 0.4 MG CAPSULE PO (08:21)
[2023-01-29] MEDS: LORazepam 1 MG TABLET PO ×2 (08:22→15:30)
[2023-01-29] MEDS: Omeprazole 20 MG CAPSULE.DR PO ×2 (08:22→15:30)
[2023-01-29] MEDS: metFORMIN HCl ER 500 MG TAB.ER.24H PO (08:22)
[2023-01-29] MEDS: polyethylene glycoL 3350 17 GM POWD.PACK PO (08:23)
--- NOTE | 2023-01-29 13:54 | P.PNPSI_ITS ---
Subjective Subjective Date of Service: 01/29/23 Reason For Visit: Psychosis Subjective Notes: Conditional Voluntary Interim History: The nursing staff reported the patient is doing well, his affect is brighter and he had been compliant with treatment. On interview the patient denies new symptoms, pleasant. Mental Status Exam Mental Status Exam Patient Appearance: Well Grooomed and Appropriate Patient Orientation: Person and Situation Level of Consciousness: Awake Patient Behavior: Cooperative Mood Description: Calm Affect Description: Constricted Patient Cognition Impaired: No Ability to Follow Directions: Good Speech Pattern: Clear Hallucinations: None Delusions: Not Present Thought Process: Linear Thought Content: positive for Circumstantial Judgement: Fair Diagnostics Vital Signs (24Hr): Vital Signs - 24 hr 01/28/23 19:40 01/29/23 08:00 Temperature 97.0 F 98 F Pulse Rate 76 76 Respiratory Rate 16 16 Blood Pressure 116/68 119/70 Pulse Oximetry 98 97 Oxygen Delivery Method Room Air Room Air BMI result Body Mass Index 31.2 Labs 01/03/23 17:40 01/26/23 06:37 Labs: Laboratory Results - last 48 hr 01/28/23 01/29/23 07:51 08:00 POC Glucose 122 H 98 Medications Medications Current Medications Acetaminophen (Acetaminophen 325 Mg Tablet) 650 mg PO Q6H PRN PRN Reason: Headache/Pain Mild Scale (1-3) Last Admin: 01/12/23 22:13 Dose: 650 mg Al Hydroxide/Mg Hydroxide (Magnesium Hydrox/Alum Hydrox 30 Ml Oral.Susp) 30 ml PO Q6H PRN PRN Reason: Heartburn/Nausea Last Admin: 01/05/23 11:31 Dose: 30 ml Bisacodyl (Bisacodyl 10 Mg Supp.Rect) 10 mg [place] DAILY PRN PRN Reason: Constipation Last Admin: 01/25/23 11:40 Dose: 10 mg Clozapine (Clozapine 100 Mg Tablet) 300 mg PO BEDTIME [facility] Last Admin: 01/28/23 20:29 Dose: 300 mg Hydroxyzine HCl (Hydroxyzine Hcl 25 Mg Tablet) 25 mg PO Q6H PRN PRN Reason: Anxiety Lorazepam (Lorazepam 1 Mg Tablet) 1 mg PO TID [facility] Last Admin: 01/29/23 08:22 Dose: 1 mg Magnesium Hydroxide (Milk Of Magnesia 30 Ml Oral.Susp) 30 ml PO DAILY PRN PRN Reason: Constipation Metformin HCl (Metformin Hcl Er 500 Mg Tab.Er.24h) 500 mg PO DAILY [facility] Last Admin: 01/29/23 08:22 Dose: 500 mg Nicotine Polacrilex (Nicotine Polacrilex 2 Mg Gum) 4 mg BUCCAL Q2H PRN PRN Reason: Nicotine Cravings Omeprazole (Omeprazole 20 Mg Capsule.Dr) 20 mg PO BID@0630,1630 [facility] Last Admin: 01/29/23 08:22 Dose: 20 mg Ondansetron HCl (Ondansetron Hcl 4 Mg/2 Ml Vial) 4 mg IVPUSH ONCE PRN PRN Reason: Nausea and Vomiting Polyethylene Glycol (Polyethylene Glycol 3350 17 Gm Powd.Pack) 17 gm PO DAILY [facility] Last Admin: 01/29/23 08:23 Dose: 17 gm Senna/Docusate Sodium (Sennosides/Docusate Sodium Tablet) 2 tab PO BID [facility] Last Admin: 01/29/23 08:21 Dose: 2 tab Sertraline HCl (Sertraline Hcl 50 Mg Tablet) 150 mg PO DAILY [facility] Last Admin: 01/29/23 08:21 Dose: 150 mg Tamsulosin HCl (Tamsulosin Hcl 0.4 Mg Capsule) 0.4 mg PO DAILY [facility] Last Admin: 01/29/23 08:21 Dose: 0.4 mg Trazodone HCl (Trazodone Hcl 50 Mg Tablet) 50 mg PO BEDTIME MRX1 PRN PRN Reason: Insomnia Last Admin: 01/10/23 19:53 Dose: 50 mg Allergies Allergies Allergy/AdvReac Type Severity Reaction Status Date / Time No Known Allergies [NKA] Allergy Unknown NONE Verified 12/21/22 09:41 Assessment & Plan Assessment & Plan (1) Schizoaffective disorder, depressive type: Status: Acute Code(s): F25.1 - Schizoaffective disorder, depressive type Plan 01/04: continue outpt medications regimen for now. recent onset of mvmts which appear c/w EPS; unclear why movements have begun. trend Sx. T/C ECT if indicated; pt has h/o ECT with some response. 01/05- pt reports hearing voices, taking clozaril. will check clozaril level. decrease sertraline as it worsens psychosis. order bladder scan POST VOID, may need straigh cath if PVR>300ml. sennakot BID. Pt appears with chest congestion, excessive secretions. 01/06: continue current mgmt. IVM have resolved. T/C anti-ACh agent if sialorrhea continues. declines ECT at present. feels changed from admission, unable to express in what way. 01/08: no changes 01/09: says he is depressed, expresses interest in ECT. consult [place] and obtain medical clearance. continue current medication. 01/10: medically cleared for ECT. seen by [facility]; awaiting go-ahead from [place] for ECT. continue current medications for now. stable presentation, depressed and severely PMR. 01/11: continue current mgmt. ECT to start monday. slightly faster responses today. 01/12: slower today, no substantial change in past couple of days. ECT tomorrow morning. 01/13: ECY #1 completed this morning. no negative events. continue current mgmt. ECT #2 monday. 01/14: Tolerated 1st ECT bitemporally continue plan of care on a decreased dose of lorazepam 01/15: Continue ECT try and limit lorazepam but if needed may need to increase does cannot was reversed with flumazenil. 01/16: tolerated ECT #2 today. slowed from weekend. continue current mgmt. 01/17: ambulating in the milieu, less PMR. continue current mgmt. 01/18: ECT #3 completed today. slightly more active in the milieu the past 36 hours. 01/19: less slowed than previously. up and about the unit. c/o CP when lying down, agreed to trial of omeprazole 20 BID. 01/20: missed ECT this morning due to having eaten some breakfast. remains slowed but improved from admission. continue current mgmt. 01/21: Continue current regimen and plans. Continue ECT on Monday. 01/22: Continue current plans and regimen. 01/23: ECT #4 completed this morning. more up and about, better related. 01/24/23 pt somewhat flat some internal preoccupation cont ect in am 01/25/2023 Use wedge when sleeping to decrease the risk of aspiration consider Robinul but would increase severe constipation risk questionable history of ALFREDO trying clarify continue ECT patient improved sertraline increased 01/26/2023 Continue ECT 01/27: ECT #6 today, well-tolerated, improved processing speed and spontaneity of speech. continue for 2 more ECTs next week, then planning for discharge to home. 02/07 continue same treatment. 01/29 continue same Treatment. Reason for continued inpatient stay Substantial Risk for: inability to function, rapid decompensation and med/psych decompensation Time Spent With Patient Time: Total time managing care of this patient today __20__ minutes.
[2023-01-29 19:55] VITALS: BP 126/60; PULSE 76; RESP 18; TEMP 36.2; O2SAT 95
[2023-01-29] MEDS: cloZAPine 100 MG TABLET 300 MG PO (20:16)
[2023-01-30] VITALS (11 sets, daily range): BP systolic 107–193; BP diastolic 57–100; PULSE 70–95; RESP 12–20; TEMP 36.1–36.6; O2SAT 96–98
[2023-01-30 05:56] LABS: Glucose, Whole Blood 123 mg/dL (60-115)
--- NOTE | 2023-01-30 06:50 | P.CONAN_ITS ---
[facility] Active Problems Active Problems: All Active Problems (Updated 01/09/23 @ 21:06 by ALEC Agustin) Routine medical exam (Acute) Schizoaffective disorder, depressive type (Acute) Schizophrenia, catatonic (Acute) Mild sleep apnea (Acute) Nocturnal hypoxia (Acute) Joint inflammation of right hand and wrist (Acute) Cough (Acute) Benign prostate hyperplasia (Acute) Adult general medical exam (Acute) Essential hypertension (Acute) Right hip pain (Acute) Status post fall (Acute) Screening for colon cancer (Acute) Screening for prostate cancer (Acute) Essential (primary) hypertension (Acute) Diabetes mellitus (Acute) Past Medical History Medical History Schizophrenia, catatonic BPH (benign prostatic hyperplasia) Screening for colon cancer Screening for prostate cancer Essential (primary) hypertension Diabetes mellitus Family History Family History Mother Cancer Father Kidney agenesis Family history of problems with anesthesia: No Surgical History Surgical History History of colonoscopy History of tooth extraction History of root canal procedure History of Problems with Anesthesia: No Social History Social History Household Members: None Housing: Apartment Do you presently have visiting nurse or other home services: Yes ([facility]) Alcohol intake: never Patient Tobacco Use Status: Never used Tobacco Smoked in Last 30 Days: No e-Cigarette/Vaping Use: Never Used Second Hand Smoke Exposure: No Use of substances other than those prescribed or required for medical reasons: No Currently Displaying Signs/Symptoms of Drug Intoxication Withdrawal: No Any prior treatment program specific to substance use: No Have you been hit, kicked, punched, or otherwise hurt by someone within the past year? If so, by whom?: No Do you feel safe in your current relationship?: No Current Relationship Is there a partner from a previous relationship who is making you feel unsafe now?: No Are you made to feel afraid or neglected: No Advance Directives: No Advance Directives Information Provided: No Do you have thoughts of harming others: None Do you have a plan to hurt others: No Plan Recently lost weight without trying: Unsure Poor oral hygiene: No service: No Current occupational status: employed Sexual orientation: Unable to collect Cognitive needs: No Hearing needs: No Vision needs: No Meds Allergies Allergy/AdvReac Type Severity Reaction Status Date / Time No Known Allergies [NKA] Allergy Unknown NONE Verified 12/21/22 09:41 Active Medications: Current Medications Acetaminophen (Acetaminophen 325 Mg Tablet) 650 mg PO Q6H PRN PRN Reason: Headache/Pain Mild Scale (1-3) Last Admin: 01/12/23 22:13 Dose: 650 mg Al Hydroxide/Mg Hydroxide (Magnesium Hydrox/Alum Hydrox 30 Ml Oral.Susp) 30 ml PO Q6H PRN PRN Reason: Heartburn/Nausea Last Admin: 01/05/23 11:31 Dose: 30 ml Bisacodyl (Bisacodyl 10 Mg Supp.Rect) 10 mg IN DAILY PRN PRN Reason: Constipation Last Admin: 01/25/23 11:40 Dose: 10 mg Clozapine (Clozapine 100 Mg Tablet) 300 mg PO BEDTIME [facility] Last Admin: 01/29/23 20:16 Dose: 300 mg Hydroxyzine HCl (Hydroxyzine Hcl 25 Mg Tablet) 25 mg PO Q6H PRN PRN Reason: Anxiety Lactated Ringer's (Lr) 1,000 mls @ 50 mls/hr IVCONT .Q20H [facility] Lorazepam (Lorazepam 1 Mg Tablet) 1 mg PO TID [facility] Last Admin: 01/29/23 19:59 Dose: Not Given Magnesium Hydroxide (Milk Of Magnesia 30 Ml Oral.Susp) 30 ml PO DAILY PRN PRN Reason: Constipation Metformin HCl (Metformin Hcl Er 500 Mg Tab.Er.24h) 500 mg PO DAILY [facility] Last Admin: 01/29/23 08:22 Dose: 500 mg Nicotine Polacrilex (Nicotine Polacrilex 2 Mg Gum) 4 mg BUCCAL Q2H PRN PRN Reason: Nicotine Cravings Omeprazole (Omeprazole 20 Mg Capsule.Dr) 20 mg PO BID@0630,1630 [facility] Last Admin: 01/29/23 15:30 Dose: 20 mg Ondansetron HCl (Ondansetron Hcl 4 Mg/2 Ml Vial) 4 mg IVPUSH ONCE PRN PRN Reason: Nausea and Vomiting Polyethylene Glycol (Polyethylene Glycol 3350 17 Gm Powd.Pack) 17 gm PO DAILY [facility] Last Admin: 01/29/23 08:23 Dose: 17 gm Senna/Docusate Sodium (Sennosides/Docusate Sodium Tablet) 2 tab PO BID [facility] Last Admin: 01/29/23 20:17 Dose: 2 tab Sertraline HCl (Sertraline Hcl 50 Mg Tablet) 150 mg PO DAILY [facility] Last Admin: 01/29/23 08:21 Dose: 150 mg Tamsulosin HCl (Tamsulosin Hcl 0.4 Mg Capsule) 0.4 mg PO DAILY [facility] Last Admin: 01/29/23 08:21 Dose: 0.4 mg Trazodone HCl (Trazodone Hcl 50 Mg Tablet) 50 mg PO BEDTIME MRX1 PRN PRN Reason: Insomnia Last Admin: 01/10/23 19:53 Dose: 50 mg Home Medications Medication Instructions Recorded Confirmed Last Taken Type lancets 28 gauge (FreeStyle 01/04/23 01/04/23 Unknown History Lancets) tamsulosin 0.4 mg capsule 0.4 mg PO DAILY 01/04/23 01/04/23 01/02/23 17:00 History Exam Exam Date and Time: January 30, 2023 0650 Height,Weight and Vital Signs: Height 5 ft 10 in Weight 98.702 kg Last Vital Signs Temp 97.3 F 01/30/23 06:34 Pulse 77 01/30/23 06:34 Resp 12 01/30/23 06:34 BP 160/92 H 01/30/23 06:34 Pulse Ox 97 01/30/23 06:34 O2 Del Method Room Air 01/30/23 06:34 O2 Flow Rate 2 01/27/23 08:17 Pertinent Lab Results Pertinent Lab Results: Laboratory Tests 01/03/23 01/04/23 01/04/23 17:40 00:55 10:38 WBC 7.8 RBC 4.42 L Hgb 12.7 L Hct 40.1 L MCV 90.7 MCH 28.7 MCHC 31.7 RDW 13.2 Plt Count 166 MPV 11.0 Immature Gran % (Auto) 0.5 H Neut % (Auto) 71.4 Lymph % (Auto) 20.7 [place] % (Auto) 7.4 Eos % (Auto) 0.0 Baso % (Auto) 0.0 Lymph # (Auto) 1.6 [place] # (Auto) 0.6 Eos # (Auto) 0.0 Baso # (Auto) 0.0 Abs Immat Gran (auto) 0.04 H Absolute Neuts (auto) 5.6 Absolute Nucleated RBC 0.000 Nucleated RBC % (auto) 0.0 Sodium 140 Potassium 4.1 Chloride 105 Carbon Dioxide 25 Anion Gap 14 BUN 19 H Creatinine 1.35 Estim Creat Clear Calc 65.9 Estimated GFR 54 POC Glucose 108 Random Glucose 87 Calcium 9.5 D Magnesium 2.1 Total Bilirubin 0.5 Direct Bilirubin 0.2 AST 12 ALT 6 Alkaline Phosphatase 59 Total Protein 7.2 Albumin 4.2 Urine Color Yellow Urine Appearance Clear Urine pH 6.5 Ur Specific [place] 1.015 Urine Protein Negative Urine Glucose (UA) Negative Urine Ketones Negative Urine Blood Negative Urine Nitrite Negative Ur Leukocyte Esterase Negative Urine Opiates Screen Not Detected Urine Fentanyl Screen Not Detected Ur Barbiturates Screen Not Detected Ur Phencyclidine Scrn Not Detected Clozapine Norclozapine Ur Amphetamines Screen Not Detected U Benzodiazepines Scrn Not Detected [place] 0.72 Urine Cocaine Screen Not Detected U Marijuana (THC) Screen Not Detected Ethyl Alcohol < 10 COVID-19 ([facility]) Negative COVID-19 IT MOVES IT Com See Note 01/05/23 01/05/23 01/05/23 08:23 08:36 13:38 WBC RBC Hgb Hct MCV MCH MCHC RDW Plt Count MPV Immature Gran % (Auto) Neut % (Auto) Lymph % (Auto) [place] % (Auto) Eos % (Auto) Baso % (Auto) Lymph # (Auto) [place] # (Auto) Eos # (Auto) Baso # (Auto) Abs Immat Gran (auto) Absolute Neuts (auto) Absolute Nucleated RBC Nucleated RBC % (auto) Sodium 141 Potassium 4.0 Chloride 105 Carbon Dioxide 28 Anion Gap 12 BUN 24 H Creatinine 1.39 Estim Creat Clear Calc 64.0 Estimated GFR 52 POC Glucose 107 Random Glucose 120 H Calcium 9.5 Magnesium Total Bilirubin 0.5 Direct Bilirubin AST 9 ALT < 5 Alkaline Phosphatase 57 Total Protein 6.8 Albumin 4.0 Urine Color Urine Appearance Urine pH Ur Specific [place] Urine Protein Urine Glucose (UA) Urine Ketones Urine Blood Urine Nitrite Ur Leukocyte Esterase Urine Opiates Screen Urine Fentanyl Screen Ur Barbiturates Screen Ur Phencyclidine Scrn Clozapine Norclozapine Ur Amphetamines Screen U Benzodiazepines Scrn [place] 0.85 Urine Cocaine Screen U Marijuana (THC) Screen Ethyl Alcohol COVID-19 ([facility]) COVID-19 Clin Com 01/06/23 01/07/23 01/08/23 07:43 08:13 08:02 WBC RBC Hgb Hct MCV MCH MCHC RDW Plt Count MPV Immature Gran % (Auto) Neut % (Auto) Lymph % (Auto) [place] % (Auto) Eos % (Auto) Baso % (Auto) Lymph # (Auto) [place] # (Auto) Eos # (Auto) Baso # (Auto) Abs Immat Gran (auto) Absolute Neuts (auto) Absolute Nucleated RBC Nucleated RBC % (auto) Sodium Potassium Chloride Carbon Dioxide Anion Gap BUN Creatinine Estim Creat Clear Calc Estimated GFR POC Glucose 112 102 96 Random Glucose Calcium Magnesium Total Bilirubin Direct Bilirubin AST ALT Alkaline Phosphatase Total Protein Albumin Urine Color Urine Appearance Urine pH Ur Specific [place] Urine Protein Urine Glucose (UA) Urine Ketones Urine Blood Urine Nitrite Ur Leukocyte Esterase Urine Opiates Screen Urine Fentanyl Screen Ur Barbiturates Screen Ur Phencyclidine Scrn Clozapine Norclozapine Ur Amphetamines Screen U Benzodiazepines Scrn [place] Urine Cocaine Screen U Marijuana (THC) Screen Ethyl Alcohol COVID-19 ([facility]) COVID-19 Cardiorobotics 01/09/23 01/10/23 01/10/23 07:54 07:49 08:01 WBC RBC Hgb Hct MCV MCH MCHC RDW Plt Count MPV Immature Gran % (Auto) Neut % (Auto) Lymph % (Auto) [place] % (Auto) Eos % (Auto) Baso % (Auto) Lymph # (Auto) [place] # (Auto) Eos # (Auto) Baso # (Auto) Abs Immat Gran (auto) Absolute Neuts (auto) 4.7 Absolute Nucleated RBC Nucleated RBC % (auto) Sodium Potassium Chloride Carbon Dioxide Anion Gap BUN Creatinine Estim Creat Clear Calc Estimated GFR POC Glucose 108 101 Random Glucose Calcium Magnesium Total Bilirubin Direct Bilirubin AST ALT Alkaline Phosphatase Total Protein Albumin Urine Color Urine Appearance Urine pH Ur Specific [place] Urine Protein Urine Glucose (UA) Urine Ketones Urine Blood Urine Nitrite Ur Leukocyte Esterase Urine Opiates Screen Urine Fentanyl Screen Ur Barbiturates Screen Ur Phencyclidine Scrn Clozapine Norclozapine Ur Amphetamines Screen U Benzodiazepines Scrn [place] Urine Cocaine Screen U Marijuana (THC) Screen Ethyl Alcohol COVID-19 ([facility]) COVID-19 Cardiorobotics 01/11/23 01/12/23 01/12/23 08:27 08:46 10:50 WBC RBC Hgb Hct MCV MCH MCHC RDW Plt Count MPV Immature Gran % (Auto) Neut % (Auto) Lymph % (Auto) [place] % (Auto) Eos % (Auto) Baso % (Auto) Lymph # (Auto) [place] # (Auto) Eos # (Auto) Baso # (Auto) Abs Immat Gran (auto) Absolute Neuts (auto) Absolute Nucleated RBC Nucleated RBC % (auto) Sodium Potassium Chloride Carbon Dioxide Anion Gap BUN Creatinine 1.20 Estim Creat Clear Calc 76.7 Estimated GFR > 60 POC Glucose 94 121 H Random Glucose Calcium Magnesium Total Bilirubin Direct Bilirubin AST ALT Alkaline Phosphatase Total Protein Albumin Urine Color Urine Appearance Urine pH Ur Specific [place] Urine Protein Urine Glucose (UA) Urine Ketones Urine Blood Urine Nitrite Ur Leukocyte Esterase Urine Opiates Screen Urine Fentanyl Screen Ur Barbiturates Screen Ur Phencyclidine Scrn Clozapine Norclozapine Ur Amphetamines Screen U Benzodiazepines Scrn [place] Urine Cocaine Screen U Marijuana (THC) Screen Ethyl Alcohol COVID-19 ([facility]) [employer] 01/13/23 01/14/23 01/15/23 08:05 08:04 08:05 WBC RBC Hgb Hct MCV MCH MCHC RDW Plt Count MPV Immature Gran % (Auto) Neut % (Auto) Lymph % (Auto) [place] % (Auto) Eos % (Auto) Baso % (Auto) Lymph # (Auto) [place] # (Auto) Eos # (Auto) Baso # (Auto) Abs Immat Gran (auto) Absolute Neuts (auto) Absolute Nucleated RBC Nucleated RBC % (auto) Sodium Potassium Chloride Carbon Dioxide Anion Gap BUN Creatinine Estim Creat Clear Calc Estimated GFR POC Glucose 102 94 94 Random Glucose Calcium Magnesium Total Bilirubin Direct Bilirubin AST ALT Alkaline Phosphatase Total Protein Albumin Urine Color Urine Appearance Urine pH Ur Specific [place] Urine Protein Urine Glucose (UA) Urine Ketones Urine Blood Urine Nitrite Ur Leukocyte Esterase Urine Opiates Screen Urine Fentanyl Screen Ur Barbiturates Screen Ur Phencyclidine Scrn Clozapine Norclozapine Ur Amphetamines Screen U Benzodiazepines Scrn [place] Urine Cocaine Screen U Marijuana (THC) Screen Ethyl Alcohol COVID-19 ([facility]) [employer] 01/16/23 01/17/23 01/17/23 06:07 07:59 08:10 WBC RBC Hgb Hct MCV MCH MCHC RDW Plt Count MPV Immature Gran % (Auto) Neut % (Auto) Lymph % (Auto) [place] % (Auto) Eos % (Auto) Baso % (Auto) Lymph # (Auto) [place] # (Auto) Eos # (Auto) Baso # (Auto) Abs Immat Gran (auto) Absolute Neuts (auto) 3.6 Absolute Nucleated RBC Nucleated RBC % (auto) Sodium Potassium Chloride Carbon Dioxide Anion Gap BUN Creatinine Estim Creat Clear Calc Estimated GFR POC Glucose 100 94 Random Glucose Calcium Magnesium Total Bilirubin Direct Bilirubin AST ALT Alkaline Phosphatase Total Protein Albumin Urine Color Urine Appearance Urine pH Ur Specific [place] Urine Protein Urine Glucose (UA) Urine Ketones Urine Blood Urine Nitrite Ur Leukocyte Esterase Urine Opiates Screen Urine Fentanyl Screen Ur Barbiturates Screen Ur Phencyclidine Scrn Clozapine Norclozapine Ur Amphetamines Screen U Benzodiazepines Scrn [place] Urine Cocaine Screen U Marijuana (THC) Screen Ethyl Alcohol COVID-19 ([facility]) [employer] 01/18/23 01/19/23 01/19/23 07:56 07:42 08:17 WBC RBC Hgb Hct MCV MCH MCHC RDW Plt Count MPV Immature Gran % (Auto) Neut % (Auto) Lymph % (Auto) [place] % (Auto) Eos % (Auto) Baso % (Auto) Lymph # (Auto) [place] # (Auto) Eos # (Auto) Baso # (Auto) Abs Immat Gran (auto) Absolute Neuts (auto) Absolute Nucleated RBC Nucleated RBC % (auto) Sodium Potassium Chloride Carbon Dioxide Anion Gap BUN Creatinine 1.13 Estim Creat Clear Calc 81.4 Estimated GFR > 60 POC Glucose 98 93 Random Glucose Calcium Magnesium Total Bilirubin Direct Bilirubin AST ALT Alkaline Phosphatase Total Protein Albumin Urine Color Urine Appearance Urine pH Ur Specific [place] Urine Protein Urine Glucose (UA) Urine Ketones Urine Blood Urine Nitrite Ur Leukocyte Esterase Urine Opiates Screen Urine Fentanyl Screen Ur Barbiturates Screen Ur Phencyclidine Scrn Clozapine Norclozapine Ur Amphetamines Screen U Benzodiazepines Scrn [place] Urine Cocaine Screen U Marijuana (THC) Screen Ethyl Alcohol COVID-19 ([facility]) [employer] 01/20/23 01/20/23 01/21/23 07:53 08:37 07:54 WBC RBC Hgb Hct MCV MCH MCHC RDW Plt Count MPV Immature Gran % (Auto) Neut % (Auto) Lymph % (Auto) [place] % (Auto) Eos % (Auto) Baso % (Auto) Lymph # (Auto) [place] # (Auto) Eos # (Auto) Baso # (Auto) Abs Immat Gran (auto) Absolute Neuts (auto) Absolute Nucleated RBC Nucleated RBC % (auto) Sodium Potassium Chloride Carbon Dioxide Anion Gap BUN Creatinine Estim Creat Clear Calc Estimated GFR POC Glucose 93 102 Random Glucose Calcium Magnesium Total Bilirubin Direct Bilirubin AST ALT Alkaline Phosphatase Total Protein Albumin Urine Color Urine Appearance Urine pH Ur Specific [place] Urine Protein Urine Glucose (UA) Urine Ketones Urine Blood Urine Nitrite Ur Leukocyte Esterase Urine Opiates Screen Urine Fentanyl Screen Ur Barbiturates Screen Ur Phencyclidine Scrn Clozapine 408 Norclozapine 258 Ur Amphetamines Screen U Benzodiazepines Scrn [place] Urine Cocaine Screen U Marijuana (THC) Screen Ethyl Alcohol COVID-19 ([facility]) [employer] 01/22/23 01/23/23 01/24/23 08:00 06:39 08:11 WBC RBC Hgb Hct MCV MCH MCHC RDW Plt Count MPV Immature Gran % (Auto) Neut % (Auto) Lymph % (Auto) [place] % (Auto) Eos % (Auto) Baso % (Auto) Lymph # (Auto) [place] # (Auto) Eos # (Auto) Baso # (Auto) Abs Immat Gran (auto) Absolute Neuts (auto) Absolute Nucleated RBC Nucleated RBC % (auto) Sodium Potassium Chloride Carbon Dioxide Anion Gap BUN Creatinine Estim Creat Clear Calc Estimated GFR POC Glucose 104 93 101 Random Glucose Calcium Magnesium Total Bilirubin Direct Bilirubin AST ALT Alkaline Phosphatase Total Protein Albumin Urine Color Urine Appearance Urine pH Ur Specific [place] Urine Protein Urine Glucose (UA) Urine Ketones Urine Blood Urine Nitrite Ur Leukocyte Esterase Urine Opiates Screen Urine Fentanyl Screen Ur Barbiturates Screen Ur Phencyclidine Scrn Clozapine Norclozapine Ur Amphetamines Screen U Benzodiazepines Scrn [place] Urine Cocaine Screen U Marijuana (THC) Screen Ethyl Alcohol COVID-19 ([facility]) [employer] 01/24/23 01/24/23 01/25/23 08:51 08:51 06:06 WBC RBC Hgb Hct MCV MCH MCHC RDW Plt Count MPV Immature Gran % (Auto) Neut % (Auto) Lymph % (Auto) [place] % (Auto) Eos % (Auto) Baso % (Auto) Lymph # (Auto) [place] # (Auto) Eos # (Auto) Baso # (Auto) Abs Immat Gran (auto) Absolute Neuts (auto) Cancelled 5.4 Absolute Nucleated RBC Nucleated RBC % (auto) Sodium Potassium Chloride Carbon Dioxide Anion Gap BUN Creatinine Estim Creat Clear Calc Estimated GFR POC Glucose 106 Random Glucose Calcium Magnesium Total Bilirubin Direct Bilirubin AST ALT Alkaline Phosphatase Total Protein Albumin Urine Color Urine Appearance Urine pH Ur Specific [place] Urine Protein Urine Glucose (UA) Urine Ketones Urine Blood Urine Nitrite Ur Leukocyte Esterase Urine Opiates Screen Urine Fentanyl Screen Ur Barbiturates Screen Ur Phencyclidine Scrn Clozapine Norclozapine Ur Amphetamines Screen U Benzodiazepines Scrn [place] Urine Cocaine Screen U Marijuana (THC) Screen Ethyl Alcohol COVID-19 ([facility]) COVID-19 Clin Com 01/26/23 01/26/23 01/27/23 06:37 07:52 06:15 WBC RBC Hgb Hct MCV MCH MCHC RDW Plt Count MPV Immature Gran % (Auto) Neut % (Auto) Lymph % (Auto) [place] % (Auto) Eos % (Auto) Baso % (Auto) Lymph # (Auto) [place] # (Auto) Eos # (Auto) Baso # (Auto) Abs Immat Gran (auto) Absolute Neuts (auto) Absolute Nucleated RBC Nucleated RBC % (auto) Sodium Potassium Chloride Carbon Dioxide Anion Gap BUN Creatinine 1.10 Estim Creat Clear Calc 84.3 Estimated GFR > 60 POC Glucose 116 H 115 Random Glucose Calcium Magnesium Total Bilirubin Direct Bilirubin AST ALT Alkaline Phosphatase Total Protein Albumin Urine Color Urine Appearance Urine pH Ur Specific [place] Urine Protein Urine Glucose (UA) Urine Ketones Urine Blood Urine Nitrite Ur Leukocyte Esterase Urine Opiates Screen Urine Fentanyl Screen Ur Barbiturates Screen Ur Phencyclidine Scrn Clozapine Norclozapine Ur Amphetamines Screen U Benzodiazepines Scrn [place] Urine Cocaine Screen U Marijuana (THC) Screen Ethyl Alcohol COVID-19 ([facility]) COVID-19 Clin Com 01/27/23 01/28/23 01/29/23 09:15 07:51 08:00 WBC RBC Hgb Hct MCV MCH MCHC RDW Plt Count MPV Immature Gran % (Auto) Neut % (Auto) Lymph % (Auto) [place] % (Auto) Eos % (Auto) Baso % (Auto) Lymph # (Auto) [place] # (Auto) Eos # (Auto) Baso # (Auto) Abs Immat Gran (auto) Absolute Neuts (auto) Absolute Nucleated RBC Nucleated RBC % (auto) Sodium Potassium Chloride Carbon Dioxide Anion Gap BUN Creatinine Estim Creat Clear Calc Estimated GFR POC Glucose 116 H 122 H 98 Random Glucose Calcium Magnesium Total Bilirubin Direct Bilirubin AST ALT Alkaline Phosphatase Total Protein Albumin Urine Color Urine Appearance Urine pH Ur Specific [place] Urine Protein Urine Glucose (UA) Urine Ketones Urine Blood Urine Nitrite Ur Leukocyte Esterase Urine Opiates Screen Urine Fentanyl Screen Ur Barbiturates Screen Ur Phencyclidine Scrn Clozapine Norclozapine Ur Amphetamines Screen U Benzodiazepines Scrn [place] Urine Cocaine Screen U Marijuana (THC) Screen Ethyl Alcohol COVID-19 ([facility]) COVID-19 Clin Com 01/30/23 05:51 WBC RBC Hgb Hct MCV MCH MCHC RDW Plt Count MPV Immature Gran % (Auto) Neut % (Auto) Lymph % (Auto) [place] % (Auto) Eos % (Auto) Baso % (Auto) Lymph # (Auto) [place] # (Auto) Eos # (Auto) Baso # (Auto) Abs Immat Gran (auto) Absolute Neuts (auto) Absolute Nucleated RBC Nucleated RBC % (auto) Sodium Potassium Chloride Carbon Dioxide Anion Gap BUN Creatinine Estim Creat Clear Calc Estimated GFR POC Glucose 123 H Random Glucose Calcium Magnesium Total Bilirubin Direct Bilirubin AST ALT Alkaline Phosphatase Total Protein Albumin Urine Color Urine Appearance Urine pH Ur Specific [place] Urine Protein Urine Glucose (UA) Urine Ketones Urine Blood Urine Nitrite Ur Leukocyte Esterase Urine Opiates Screen Urine Fentanyl Screen Ur Barbiturates Screen Ur Phencyclidine Scrn Clozapine Norclozapine Ur Amphetamines Screen U Benzodiazepines Scrn [place] Urine Cocaine Screen U Marijuana (THC) Screen Ethyl Alcohol COVID-19 ([facility]) COVID-19 Clin Com Airway Mallampati Class: III TM Dist: >3cm Neck ROM: Full Heart: r Lungs: cta Assessment and Plan Assessment Anesthesia Assessment: Anesthesia Plan Discussed and Chart Reviewed Final Anesthetic Review Family History of Problems with Anesthesia: No History of Problems with Anesthesia: No NPO: Yes ASA Class: III Final Preanesthetic Review: No Changes in Pt Med Stat, Meds/Allgs Chart Reviewed and Consent Obtained/Reviewed Patient Risk: Intermediate Procedure Risk: Intermediate Anesthetic Plan Anesthetic Plan: GA Disposition: Standard PACU
--- NOTE | 2023-01-30 07:42 | MHC.SHP ---
Pre-Procedural Eval Section A Date of Service: 01/30/23 The patient is an INPATIENT: Yes Changes since office visit: No Cold of Flu in the past 2 weeks, No New Medical Problems, No Changes in Medication and No Patient answered all questions The History & Physical has been completed within 30 days and I have reviewed it.: Yes Section B Chief Complaint: Psychosis Allergies: Allergies Allergy/AdvReac Type Severity Reaction Status Date / Time No Known Allergies [NKA] Allergy Unknown NONE Verified 12/21/22 09:41 Plan I have reviewed the history and physical and performed a pertinent physical examination on my patient. No changes have occurred unless specified. Time Spent With Patient Time: Total time managing care of this patient today ____ minutes.
--- NOTE | 2023-01-30 07:59 | HO.ECTPROC ---
ECT Procedure Note Diagnosis/Treatment Date of Service: 01/30/23 Diagnosis: Catatonia and Schizoaffective Disorder Previous ECT Date: 01/27/23 Current Treatment Number: 8 Treatment: Series Interval Clinical Notes: The patient's catatonia has resolved, he is able to respond questions, a little hypoactive since he is sleepy, he stated that he slept poorly last night. No side effects with the previous procedure. Current procedure done as usual, no complications. We decided not to give the Ativan post ECT since the patient is not catatonic anymore. Time: Total time managing care of this patient today _30___ minutes. ECT Settings Device: THYMATRON DGx Electrode Placement: Bitemporal Program/Pulse Width: 0.50 Energy Percent: 100 Seizure Duration By EEG (in seconds): 0 (the computer didn't registerd seizure activity but he had seizure activity until 57s) By Motor Observation (in seconds): 19 Medications Administration General Anesthetic: Etomidate (18) Muscle Relaxant: Succinylcholine (120) Ancillary Medications Analgesics: Torodol - Pre ECT Anti-emetics: Zofran - Pre ECT Airway Management Airway Management: Bag Mask Ventilation Treatment Recommendations No Changes Recommended: No change Pt Tolerated Procedure w/o Issue: Yes
[2023-01-30] MEDS: LORazepam 1 MG TABLET PO ×3 (09:57→21:14)
[2023-01-30] MEDS: Omeprazole 20 MG CAPSULE.DR PO ×2 (09:57→16:10)
[2023-01-30] MEDS: Sertraline HCL 50 MG TABLET 150 MG PO (09:58)
[2023-01-30] MEDS: Tamsulosin HCL 0.4 MG CAPSULE PO (09:58)
[2023-01-30] MEDS: metFORMIN HCl ER 500 MG TAB.ER.24H PO (09:58)
[2023-01-30] MEDS: Sennosides/Docusate Sodium TABLET 2 TAB PO ×2 (09:59→21:14)
[2023-01-30] MEDS: polyethylene glycoL 3350 17 GM POWD.PACK PO (10:11)
--- NOTE | 2023-01-30 14:40 | P.PNPSI_ITS ---
Subjective Subjective Date of Service: 01/30/23 Reason For Visit: Psychosis Interim History: out and about in milieu. more affectively expressive. more spontaneous. denies dep/anx. agreeable to discharge . per staff, ECT this morning. bright affect, laughing and joking. no anx/dep. Mental Status Exam Mental Status Exam Narrative: Appearance: wearing street clothes, fair eye contact, in NAD Behavior: cooperative Psychomotor: slight retardation Speech: nml rate, amount, loudness, latency; spontaneous TP: linear, logical TC: no delusions or paranoia expressed Affect: more flexible, hypo-intense mood: improved, denies dep/anx SI: none expressed HI: none expressed VH/AH: none expressed Insight/judgment: fair x 2. Memory/cog: alert, oriented x 3. Diagnostics Vital Signs (24Hr): Vital Signs - 24 hr 01/29/23 19:55 01/30/23 06:00 01/30/23 06:34 Temperature 97.2 F 97.0 F 97.3 F Pulse Rate 76 79 77 Respiratory Rate 18 18 12 Blood Pressure 126/60 140/79 H 160/92 H Pulse Oximetry 95 98 97 Oxygen Delivery Method Room Air Room Air Room Air Oxygen Flow Rate 01/30/23 08:09 01/30/23 08:14 01/30/23 08:19 Temperature 97.8 F Pulse Rate 91 93 95 Respiratory Rate 16 18 18 Blood Pressure 193/90 H 183/94 H 164/88 H Pulse Oximetry 97 98 98 Oxygen Delivery Method Nasal Cannula with ETCO2 Nasal Cannula with ETCO2 Nasal Cannula with ETCO2 Oxygen Flow Rate 3 2 2 01/30/23 08:24 01/30/23 08:39 01/30/23 08:54 Temperature 97.8 F Pulse Rate 91 86 85 Respiratory Rate 18 20 20 Blood Pressure 187/100 H 182/94 H 174/93 H Pulse Oximetry 98 97 96 Oxygen Delivery Method Nasal Cannula with ETCO2 Room Air Room Air Oxygen Flow Rate 2 01/30/23 09:35 01/30/23 14:37 Temperature 97.0 F 97.0 F Pulse Rate 84 84 Respiratory Rate 20 20 Blood Pressure 130/77 130/77 Pulse Oximetry 98 98 Oxygen Delivery Method Room Air Oxygen Flow Rate BMI result Body Mass Index 31.2 Labs 01/03/23 17:40 01/26/23 06:37 Labs: Laboratory Results - last 48 hr 01/29/23 01/30/23 08:00 05:51 POC Glucose 98 123 H Medications Medications Current Medications Acetaminophen (Acetaminophen 325 Mg Tablet) 650 mg PO Q6H PRN PRN Reason: Headache/Pain Mild Scale (1-3) Last Admin: 01/12/23 22:13 Dose: 650 mg Al Hydroxide/Mg Hydroxide (Magnesium Hydrox/Alum Hydrox 30 Ml Oral.Susp) 30 ml PO Q6H PRN PRN Reason: Heartburn/Nausea Last Admin: 01/05/23 11:31 Dose: 30 ml Bisacodyl (Bisacodyl 10 Mg Supp.Rect) 10 mg [place] DAILY PRN PRN Reason: Constipation Last Admin: 01/25/23 11:40 Dose: 10 mg Clozapine (Clozapine 100 Mg Tablet) 300 mg PO BEDTIME [facility] Last Admin: 01/29/23 20:16 Dose: 300 mg Hydroxyzine HCl (Hydroxyzine Hcl 25 Mg Tablet) 25 mg PO Q6H PRN PRN Reason: Anxiety Lorazepam (Lorazepam 1 Mg Tablet) 1 mg PO TID [facility] Last Admin: 01/30/23 09:57 Dose: 1 mg Magnesium Hydroxide (Milk Of Magnesia 30 Ml Oral.Susp) 30 ml PO DAILY PRN PRN Reason: Constipation Metformin HCl (Metformin Hcl Er 500 Mg Tab.Er.24h) 500 mg PO DAILY [facility] Last Admin: 01/30/23 09:58 Dose: 500 mg Nicotine Polacrilex (Nicotine Polacrilex 2 Mg Gum) 4 mg BUCCAL Q2H PRN PRN Reason: Nicotine Cravings Omeprazole (Omeprazole 20 Mg Capsule.Dr) 20 mg PO BID@0630,1630 [facility] Last Admin: 01/30/23 09:57 Dose: 20 mg Ondansetron HCl (Ondansetron Hcl 4 Mg/2 Ml Vial) 4 mg IVPUSH ONCE PRN PRN Reason: Nausea and Vomiting Polyethylene Glycol (Polyethylene Glycol 3350 17 Gm Powd.Pack) 17 gm PO DAILY [facility] Last Admin: 01/30/23 10:11 Dose: 17 gm Senna/Docusate Sodium (Sennosides/Docusate Sodium Tablet) 2 tab PO BID [facility] Last Admin: 01/30/23 09:59 Dose: 2 tab Sertraline HCl (Sertraline Hcl 50 Mg Tablet) 150 mg PO DAILY [facility] Last Admin: 01/30/23 09:58 Dose: 150 mg Tamsulosin HCl (Tamsulosin Hcl 0.4 Mg Capsule) 0.4 mg PO DAILY [facility] Last Admin: 01/30/23 09:58 Dose: 0.4 mg Trazodone HCl (Trazodone Hcl 50 Mg Tablet) 50 mg PO BEDTIME [facility] PRN PRN Reason: Insomnia Last Admin: 01/10/23 19:53 Dose: 50 mg Allergies Allergies Allergy/AdvReac Type Severity Reaction Status Date / Time No Known Allergies [NKA] Allergy Unknown NONE Verified 12/21/22 09:41 Assessment & Plan Assessment & Plan (1) Schizoaffective disorder, depressive type: Status: Acute Code(s): F25.1 - Schizoaffective disorder, depressive type Plan 01/04: continue outpt medications regimen for now. recent onset of mvmts which appear c/w EPS; unclear why movements have begun. trend Sx. T/C ECT if indicated; pt has h/o ECT with some response. 01/05- pt reports hearing voices, taking clozaril. will check clozaril level. decrease sertraline as it worsens psychosis. order bladder scan POST VOID, may need straigh cath if PVR>300ml. sennakot BID. Pt appears with chest congestion, excessive secretions. 01/06: continue current mgmt. IVM have resolved. T/C anti-ACh agent if sialorrhea continues. declines ECT at present. feels changed from admission, unable to express in what way. 01/08: no changes 01/09: says he is depressed, expresses interest in ECT. consult [facility] and obtain medical clearance. continue current medication. 01/10: medically cleared for ECT. seen by [facility]; awaiting go-ahead from [facility] for ECT. continue current medications for now. stable presentation, depressed and severely PMR. 01/11: continue current mgmt. ECT to start monday. slightly faster responses today. 01/12: slower today, no substantial change in past couple of days. ECT tomorrow morning. 01/13: ECY #1 completed this morning. no negative events. continue current mgmt. ECT #2 monday. 01/14: Tolerated 1st ECT bitemporally continue plan of care on a decreased dose of lorazepam 01/15: Continue ECT try and limit lorazepam but if needed may need to increase does cannot was reversed with flumazenil. 01/16: tolerated ECT #2 today. slowed from weekend. continue current mgmt. 01/17: ambulating in the milieu, less PMR. continue current mgmt. 01/18: ECT #3 completed today. slightly more active in the milieu the past 36 hours. 01/19: less slowed than previously. up and about the unit. c/o CP when lying down, agreed to trial of omeprazole 20 BID. 01/20: missed ECT this morning due to having eaten some breakfast. remains slowed but improved from admission. continue current mgmt. 01/21: Continue current regimen and plans. Continue ECT on Monday. 01/22: Continue current plans and regimen. 01/23: ECT #4 completed this morning. more up and about, better related. 01/24/23 pt somewhat flat some internal preoccupation cont ect in am 01/25/2023 Use wedge when sleeping to decrease the risk of aspiration consider Robinul but would increase severe constipation risk questionable history of ALFREDO trying clarify continue ECT patient improved sertraline increased 01/26/2023 Continue ECT 01/27: ECT #6 today, well-tolerated, improved processing speed and spontaneity of speech. continue for 2 more ECTs next week, then planning for discharge to home. 02/07 continue same treatment. 01/29 continue same Treatment. 01/30: ECT #7 completed today. planning for 1 more ECT weds, then discharge . substantial improvement over w/e, with more flexible affect, more speech, resolved mood and anxiety complaints. Reason for continued inpatient stay Substantial Risk for: inability to function and rapid decompensation Time Spent With Patient Time: Total time managing care of this patient today _25___ minutes.
[2023-01-30] MEDS: cloZAPine 100 MG TABLET 300 MG PO (21:14)
[2023-01-31 06:00] VITALS: BP 133/60; PULSE 97; TEMP 36.2; O2SAT 94
[2023-01-31 07:34] LABS: Glucose, Whole Blood 106 mg/dL (60-115)
[2023-01-31 08:29] LABS: Neut%MD 67.7 %; Neutrophils Absolute Auto 4.3 x10*3/uL (2.0-8.3); WBCANC 6.3 X10*3/uL
[2023-01-31] MEDS: Sertraline HCL 50 MG TABLET 150 MG PO (08:30)
[2023-01-31] MEDS: Omeprazole 20 MG CAPSULE.DR PO ×2 (08:31→16:47)
[2023-01-31] MEDS: LORazepam 1 MG TABLET PO ×2 (08:31→15:05)
[2023-01-31] MEDS: Sennosides/Docusate Sodium TABLET 2 TAB PO ×2 (08:31→20:49)
[2023-01-31] MEDS: Tamsulosin HCL 0.4 MG CAPSULE PO (08:31)
[2023-01-31] MEDS: metFORMIN HCl ER 500 MG TAB.ER.24H PO (08:31)
[2023-01-31] MEDS: polyethylene glycoL 3350 17 GM POWD.PACK PO (08:32)
--- NOTE | 2023-01-31 09:23 | HO.PSYCHPN ---
Subjective Subjective Date of Service: 01/31/23 Reason For Visit: Psychosis Subjective Notes: Conditional Voluntary Interim History: Seen in psychiatric follow-up mood improved schedule for ECT tomorrow prior to discharge Mental Status Exam Mental Status Exam Narrative: Appearance: wearing street clothes, fair eye contact, in NAD Behavior: cooperative Psychomotor: slight retardation Speech: nml rate, amount, loudness, latency; spontaneous TP: linear, logical TC: no delusions or paranoia expressed Affect: more flexible, hypo-intense mood: improved, denies dep/anx SI: none expressed HI: none expressed VH/AH: none expressed Insight/judgment: fair x 2. Memory/cog: alert, oriented x 3. Diagnostics Vital Signs (24Hr): Vital Signs - 24 hr 01/30/23 09:35 01/30/23 14:37 01/30/23 19:10 Temperature 97.0 F 97.0 F 97.0 F Pulse Rate 84 84 70 Respiratory Rate 20 20 16 Blood Pressure 130/77 130/77 107/57 L Pulse Oximetry 98 98 96 Oxygen Delivery Method Room Air Room Air 01/31/23 06:00 Temperature 97.1 F Pulse Rate 97 Respiratory Rate Blood Pressure 133/60 Pulse Oximetry 94 Oxygen Delivery Method Room Air BMI result Body Mass Index 31.2 Labs 01/03/23 17:40 01/26/23 06:37 Labs: Laboratory Results - last 48 hr 01/30/23 01/31/23 01/31/23 05:51 07:29 08:18 Absolute Neuts (auto) 4.3 POC Glucose 123 H 106 Medications Medications Current Medications Acetaminophen (Acetaminophen 325 Mg Tablet) 650 mg PO Q6H PRN PRN Reason: Headache/Pain Mild Scale (1-3) Last Admin: 01/12/23 22:13 Dose: 650 mg Al Hydroxide/Mg Hydroxide (Magnesium Hydrox/Alum Hydrox 30 Ml Oral.Susp) 30 ml PO Q6H PRN PRN Reason: Heartburn/Nausea Last Admin: 01/05/23 11:31 Dose: 30 ml Bisacodyl (Bisacodyl 10 Mg Supp.Rect) 10 mg [place] DAILY PRN PRN Reason: Constipation Last Admin: 01/25/23 11:40 Dose: 10 mg Clozapine (Clozapine 100 Mg Tablet) 300 mg PO BEDTIME [facility] Last Admin: 01/30/23 21:14 Dose: 300 mg Hydroxyzine HCl (Hydroxyzine Hcl 25 Mg Tablet) 25 mg PO Q6H PRN PRN Reason: Anxiety Lorazepam (Lorazepam 1 Mg Tablet) 1 mg PO TID [facility] Last Admin: 01/31/23 08:31 Dose: 1 mg Magnesium Hydroxide (Milk Of Magnesia 30 Ml Oral.Susp) 30 ml PO DAILY PRN PRN Reason: Constipation Metformin HCl (Metformin Hcl Er 500 Mg Tab.Er.24h) 500 mg PO DAILY [facility] Last Admin: 01/31/23 08:31 Dose: 500 mg Nicotine Polacrilex (Nicotine Polacrilex 2 Mg Gum) 4 mg BUCCAL Q2H PRN PRN Reason: Nicotine Cravings Omeprazole (Omeprazole 20 Mg Capsule.Dr) 20 mg PO BID@0630,1630 [facility] Last Admin: 01/31/23 08:31 Dose: 20 mg Ondansetron HCl (Ondansetron Hcl 4 Mg/2 Ml Vial) 4 mg IVPUSH ONCE PRN PRN Reason: Nausea and Vomiting Polyethylene Glycol (Polyethylene Glycol 3350 17 Gm Powd.Pack) 17 gm PO DAILY [facility] Last Admin: 01/31/23 08:32 Dose: 17 gm Senna/Docusate Sodium (Sennosides/Docusate Sodium Tablet) 2 tab PO BID [facility] Last Admin: 01/31/23 08:31 Dose: 2 tab Sertraline HCl (Sertraline Hcl 50 Mg Tablet) 150 mg PO DAILY [facility] Last Admin: 01/31/23 08:30 Dose: 150 mg Tamsulosin HCl (Tamsulosin Hcl 0.4 Mg Capsule) 0.4 mg PO DAILY [facility] Last Admin: 01/31/23 08:31 Dose: 0.4 mg Trazodone HCl (Trazodone Hcl 50 Mg Tablet) 50 mg PO BEDTIME [facility]X1 PRN PRN Reason: Insomnia Last Admin: 01/10/23 19:53 Dose: 50 mg Allergies Allergies Allergy/AdvReac Type Severity Reaction Status Date / Time No Known Allergies [NKA] Allergy Unknown NONE Verified 12/21/22 09:41 Assessment & Plan Assessment & Plan (1) Schizoaffective disorder, depressive type: Status: Acute Code(s): F25.1 - Schizoaffective disorder, depressive type Plan 01/04: continue outpt medications regimen for now. recent onset of mvmts which appear c/w EPS; unclear why movements have begun. trend Sx. T/C ECT if indicated; pt has h/o ECT with some response. 01/05- pt reports hearing voices, taking clozaril. will check clozaril level. decrease sertraline as it worsens psychosis. order bladder scan POST VOID, may need straigh cath if PVR>300ml. sennakot BID. Pt appears with chest congestion, excessive secretions. 01/06: continue current mgmt. IVM have resolved. T/C anti-ACh agent if sialorrhea continues. declines ECT at present. feels changed from admission, unable to express in what way. 01/08: no changes 01/09: says he is depressed, expresses interest in ECT. consult [facility] and obtain medical clearance. continue current medication. 01/10: medically cleared for ECT. seen by [facility]; awaiting go-ahead from [place] for ECT. continue current medications for now. stable presentation, depressed and severely PMR. 01/11: continue current mgmt. ECT to start monday. slightly faster responses today. 01/12: slower today, no substantial change in past couple of days. ECT tomorrow morning. 01/13: ECY #1 completed this morning. no negative events. continue current mgmt. ECT #2 monday. 01/14: Tolerated 1st ECT bitemporally continue plan of care on a decreased dose of lorazepam 01/15: Continue ECT try and limit lorazepam but if needed may need to increase does cannot was reversed with flumazenil. 01/16: tolerated ECT #2 today. slowed from weekend. continue current mgmt. 01/17: ambulating in the milieu, less PMR. continue current mgmt. 01/18: ECT #3 completed today. slightly more active in the milieu the past 36 hours. 01/19: less slowed than previously. up and about the unit. c/o CP when lying down, agreed to trial of omeprazole 20 BID. 01/20: missed ECT this morning due to having eaten some breakfast. remains slowed but improved from admission. continue current mgmt. 01/21: Continue current regimen and plans. Continue ECT on Monday. 01/22: Continue current plans and regimen. 01/23: ECT #4 completed this morning. more up and about, better related. 01/24/23 pt somewhat flat some internal preoccupation cont ect in am 01/25/2023 Use wedge when sleeping to decrease the risk of aspiration consider Robinul but would increase severe constipation risk questionable history of ALFREDO trying clarify continue ECT patient improved sertraline increased 01/26/2023 Continue ECT 01/27: ECT #6 today, well-tolerated, improved processing speed and spontaneity of speech. continue for 2 more ECTs next week, then planning for discharge to home. 02/07 continue same treatment. 01/29 continue same Treatment. 01/30: ECT #7 completed today. planning for 1 more ECT , then discharge . substantial improvement over w/e, with more flexible affect, more speech, resolved mood and anxiety complaints. 01/31/23 Pt seen in f/u much improved Reason for continued inpatient stay Substantial Risk for: inability to function and rapid decompensation Time Spent With Patient Time: Total time managing care of this patient today ____ minutes.
[2023-01-31 20:30] VITALS: BP 117/62; PULSE 76; TEMP 36.4; O2SAT 97
[2023-01-31] MEDS: cloZAPine 100 MG TABLET 300 MG PO (20:49)
[2023-02-01] VITALS (11 sets, daily range): BP systolic 126–177; BP diastolic 62–98; PULSE 66–95; RESP 16–20; TEMP 36.1–36.6; O2SAT 93–100
[2023-02-01 06:02] LABS: Glucose, Whole Blood 110 mg/dL (60-115)
--- NOTE | 2023-02-01 09:12 | MHC.SHP ---
Pre-Procedural Eval Section A Date of Service: 02/01/23 Changes since office visit: Yes New Medical Problems and Yes Patient answered all questions; No Cold of Flu in the past 2 weeks and No Changes in Medication The History & Physical has been completed within 30 days and I have reviewed it.: Yes Section B Chief Complaint: Psychosis Allergies: Allergies Allergy/AdvReac Type Severity Reaction Status Date / Time No Known Allergies [NKA] Allergy Unknown NONE Verified 12/21/22 09:41 Plan I have reviewed the history and physical and performed a pertinent physical examination on my patient. No changes have occurred unless specified. Time Spent With Patient Time: Total time managing care of this patient today ____ minutes.
--- NOTE | 2023-02-01 09:12 | HO.ECTPROC ---
ECT Procedure Note Diagnosis/Treatment Date of Service: 02/01/23 Diagnosis: Catatonia and Schizoaffective Disorder Previous ECT Date: 01/27/23 Current Treatment Number: 9 Treatment: Series Interval Clinical Notes: pt much improved would do well with maintenance orozco affect sense of humor Time: Total time managing care of this patient today _35___ minutes. ECT Settings Device: THYMATRON DGx Electrode Placement: Rt temporal/ Lt frontal Program/Pulse Width: Other Energy Percent: 100 Seizure Duration By EEG (in seconds): 47 Medications Administration General Anesthetic: Etomidate (18) Muscle Relaxant: Succinylcholine (120) Ancillary Medications Anti-emetics: Zofran - Pre ECT Airway Management Airway Management: Bag Mask Ventilation Treatment Recommendations No Changes Recommended: No change Notes: pt has r hand swelling no fever has not has that as iv site Pt Tolerated Procedure w/o Issue: Yes
[2023-02-01] MEDS: polyethylene glycoL 3350 17 GM POWD.PACK PO (11:03)
[2023-02-01] MEDS: Omeprazole 20 MG CAPSULE.DR PO ×2 (11:05→17:40)
[2023-02-01] MEDS: Sennosides/Docusate Sodium TABLET 2 TAB PO ×2 (11:05→20:25)
[2023-02-01] MEDS: metFORMIN HCl ER 500 MG TAB.ER.24H PO (11:05)
[2023-02-01] MEDS: LORazepam 1 MG TABLET PO ×3 (11:05→20:26)
[2023-02-01] MEDS: Sertraline HCL 50 MG TABLET 150 MG PO (11:06)
[2023-02-01] MEDS: Tamsulosin HCL 0.4 MG CAPSULE PO (11:06)
--- NOTE | 2023-02-01 11:46 | PM.PSYDC ---
DS: Providers Provider Date of Service: 02/01/23 Date of admission: 01/04/23 09:57 Primary care physician: Unknown Physician Consults: 01/09/23 15:49 Consult to Hospitalist Routine Comment: Consulting Provider: Hospitalist Reason For Exam: ECT clearance Consult to Mental Health Routine Consulting Provider: Steven Huerta Reason for consultation: ECT for depression DS: Diagnosis Discharge Diagnosis (1) Schizoaffective disorder, depressive type: Status: Acute DS: Medications Discharge Medications Home Medications: Home Medications Medication Instructions Recorded Confirmed lancets 28 gauge (FreeStyle 01/04/23 01/04/23 Lancets) tamsulosin 0.4 mg capsule 0.4 mg PO DAILY 01/04/23 01/04/23 Previous Rx's Medication Instructions Recorded clozapine 100 mg tablet 300 mg (3 x 100 mg) PO BEDTIME #45 07/19/22 tabs lithium carbonate 300 mg capsule 600 mg (2 x 300 mg) PO BEDTIME #60 07/19/22 caps lorazepam 1 mg tablet 1 mg PO TID #90 tabs 07/19/22 sennosides 8.6 mg tablet (Senna 17.2 mg (2 x 8.6 mg) PO BEDTIME 09/05/22 Lax) #90 tabs docusate sodium 100 mg capsule 200 mg (2 x 100 mg) PO BID #120 12/18/22 caps metformin 500 mg tablet,extended 500 mg PO DAILY #30 tabs 12/26/22 release 24 hr omeprazole 20 mg capsule,delayed 20 mg PO BID@0630,1630 30 days #60 02/01/23 release caps polyethylene glycol 3350 17 gram 17 g PO DAILY 30 days #30 ea 02/01/23 oral powder packet sertraline 50 mg tablet 150 mg (3 x 50 mg) PO DAILY #0 tabs 02/01/23 Mental Status Exam Mental Status Exam Narrative: Appearance: wearing street clothes, fair eye contact, in NAD Behavior: cooperative Psychomotor: slight retardation Speech: nml rate, amount, loudness, latency; spontaneous TP: linear, logical TC: no delusions or paranoia expressed Affect: more flexible, hypo-intense mood: good SI: none HI: none VH/AH: none Insight/judgment: fair x 2. Memory/cog: alert, oriented x 3. Data Data Completed and Pending Completed studies during hospitalization [Text1]: 01/20/23 01/26/23 01/26/23 08:37 06:37 07:52 Absolute Neuts (auto) Creatinine 1.10 Estim Creat Clear Calc 84.3 Estimated GFR > 60 POC Glucose 116 H Clozapine 408 Norclozapine 258 01/27/23 01/27/23 01/28/23 06:15 09:15 07:51 Absolute Neuts (auto) Creatinine Estim Creat Clear Calc Estimated GFR POC Glucose 115 116 H 122 H Clozapine Norclozapine 01/29/23 01/30/23 01/31/23 08:00 05:51 07:29 Absolute Neuts (auto) Creatinine Estim Creat Clear Calc Estimated GFR POC Glucose 98 123 H 106 Clozapine Norclozapine 01/31/23 02/01/23 08:18 05:55 Absolute Neuts (auto) 4.3 Creatinine Estim Creat Clear Calc Estimated GFR POC Glucose 110 Clozapine Norclozapine DS: Summary Hospital Course Hospital Course: per 01/04 admission note: per [facility] crisis eval, pt was noted to have changed from his baseline level of function in the negative and was referred for hospitalization as a result. he has stopped going to work and has become very psychomotorically slowed. [facility] team noted his apartment smelled of urine and pt was slowed and appeared distracted, unable to effectively engage with the team. he was referref for hospitalization and was admitted voluntarily. on interview by psych MD in the unit, pt was quite delayed in his responses, had a resting tremor of his jaw and RUE, and what responses were offered were extremely terse. he was unable to describe his mood and denied SI, endorsed AVH. Past Psychiatric History: Inpatient: multiple in the past. h/o ECT for catatonia. OP: [facility] Og Lomas Past medication trials: clozaril, ativan, sertraline, olanzapine. Medical Evaluation Reviewed: Yes [facility] Medical History Schizophrenia, catatonic BPH (benign prostatic hyperplasia) Screening for colon cancer Screening for prostate cancer Essential (primary) hypertension Diabetes mellitus Surgical History History of colonoscopy History of tooth extraction History of root canal procedure Family History: unknown Social History: lives independently, works, drives. apartment in [place]. Substance History: none reported Trauma History: unknown Precis: 01/04: continue outpt medications regimen for now. recent onset of mvmts which appear c/w EPS; unclear why movements have begun. trend Sx. T/C ECT if indicated; pt has h/o ECT with some response. 01/05- pt reports hearing voices, taking clozaril. will check clozaril level. decrease sertraline as it worsens psychosis. order bladder scan POST VOID, may need straight cath if PVR>300ml. sennakot BID. Pt appears with chest congestion, excessive secretions. 01/06: continue current mgmt. IVM have resolved. T/C anti-ACh agent if sialorrhea continues. declines ECT at present. feels changed from admission, unable to express in what way. 01/08: no changes 01/09: says he is depressed, expresses interest in ECT. consult [facility] and obtain medical clearance. continue current medication. 01/10: medically cleared for ECT. seen by [facility]; awaiting go-ahead from [place] for ECT. continue current medications for now. stable presentation, depressed and severely PMR. 01/11: continue current mgmt. ECT to start monday. slightly faster responses today. 01/12: slower today, no substantial change in past couple of days. ECT tomorrow morning. 01/13: ECT #1 completed this morning. no negative events. continue current mgmt. ECT #2 monday. 01/14: Tolerated 1st ECT bitemporally continue plan of care on a decreased dose of lorazepam 01/15: Continue ECT try and limit lorazepam but if needed may need to increase does cannot was reversed with flumazenil. 01/16: tolerated ECT #2 today. slowed from weekend. continue current mgmt. 01/17: ambulating in the milieu, less PMR. continue current mgmt. 01/18: ECT #3 completed today. slightly more active in the milieu the past 36 hours. 01/19: less slowed than previously. up and about the unit. c/o CP when lying down, agreed to trial of omeprazole 20 BID. 01/20: missed ECT this morning due to having eaten some breakfast. remains slowed but improved from admission. continue current mgmt. 01/21: Continue current regimen and plans. Continue ECT on Monday. 01/22: Continue current plans and regimen. 01/23: ECT #4 completed this morning. more up and about, better related. 01/24: pt somewhat flat some internal preoccupation cont ect in am 01/25: Use wedge when sleeping to decrease the risk of aspiration consider Robinul but would increase severe constipation risk questionable history of ALFREDO trying clarify continue ECT patient improved sertraline increased 01/26: Continue ECT 01/27: ECT #6 today, well-tolerated, improved processing speed and spontaneity of speech. continue for 2 more ECTs next week, then planning for discharge to home. 02/07 continue same treatment. 01/29 continue same Treatment. 01/30: ECT #7 completed today. planning for 1 more ECT , then discharge . substantial improvement over w/e, with more flexible affect, more speech, resolved mood and anxiety complaints. 01/31: Pt seen in f/u much improved. 02/01: ECT #8 completed, very much improved from admission. 02/02: stable, no longer depressed. discharged to home as per plan. Time Spent with Patient Time attestation: Total time managing care of this patient today ____ minutes. Time spent: Greater than 30 minutes Discharge Plan Discharge Anticipated Discharge Date/Time: 02/02/23 11:00 Patient Disposition: Home, Self-Care Discharge Diagnosis: Schizoaffective Disorder, Depressive Type Referrals: Jonn Smith MD [Physician] - 1 Week (OFFICE WILL CONTACT PATIENT) Discharge Medications: New polyethylene glycol 3350 17 gram Powder In Packet 17 g PO DAILY 30 Days Qty: 30 0RF omeprazole 20 mg Capsule,Delayed Release(Dr/Ec) 20 mg PO BID@0630,1630 30 Days Qty: 60 0RF sertraline 50 mg Tablet 150 mg PO DAILY Qty: 0 0RF Continued sennosides [Senna Lax] 8.6 mg tablet 17.2 mg PO BEDTIME Qty: 90 3RF docusate sodium 100 mg capsule 200 mg PO BID Qty: 120 3RF metformin 500 mg tablet extended release 24 hr 500 mg PO DAILY Qty: 30 1RF clozapine 100 mg Tablet 300 mg PO BEDTIME Qty: 45 0RF lithium carbonate 300 mg Capsule 600 mg PO BEDTIME Qty: 60 0RF lorazepam 1 mg Tablet 1 mg PO TID Qty: 90 0RF tamsulosin 0.4 mg capsule 0.4 mg PO DAILY (DME) lancets [FreeStyle Lancets] 28 gauge misc See Rx Instructions .ROUTE .COMPLEX Rx Instructions: TEST BLOOD SUGAR ONCE DAILY Discontinued sertraline 100 mg Tablet 200 mg PO DAILY Qty: 60 0RF Discharge Orders: Discharge Order (Routine); Ordered 02/02/23 Ordered By: Alejandro Crane Diet: Diabetic diet Activity on Discharge: As tolerated Stand Alone Forms: Patient Portal Discharge page, Community Support Care Plan Goals: remain safe and stable in the outpatient treatment setting Health Concerns: Diabetes Mellitus Plan of Treatment: take medications as prescribed, attend appointments as scheduled Assessment: not at imminent risk of harm to self or others
[2023-02-01] MEDS: cloZAPine 100 MG TABLET 300 MG PO (20:25)
--- NOTE | 2023-02-01 21:46 | HO.ECTPROC ---
ECT Procedure Note Diagnosis/Treatment Date of Service: 02/01/23 Diagnosis: Schizoaffective Disorder Current Treatment Number: 9 Treatment: Series Interval Clinical Notes: Patient doing markedly better orozco affect no complaints of side effects seems safe for discharge tomorrow will have evaluation for ALFREDO to night unfortunately not able to do outpatient ECT Time: Total time managing care of this patient today _35___ minutes. ECT Settings Device: THYMATRON DGx Electrode Placement: Rt temporal/ Lt frontal Program/Pulse Width: 0.50 Energy Percent: 100 Seizure Duration By EEG (in seconds): 47 Medications Administration General Anesthetic: Etomidate (18) Muscle Relaxant: Succinylcholine (120) Ancillary Medications Anti-emetics: Zofran - Pre ECT Airway Management Airway Management: Bag Mask Ventilation Treatment Recommendations No Changes Recommended: No change Notes: Patient has done remarkably well Pt Tolerated Procedure w/o Issue: Yes
[2023-02-02 08:33] LABS: Glucose, Whole Blood 103 mg/dL (60-115)
[2023-02-02] MEDS: LORazepam 1 MG TABLET PO (09:08)
[2023-02-02] MEDS: Omeprazole 20 MG CAPSULE.DR PO (09:08)
[2023-02-02] MEDS: Sennosides/Docusate Sodium TABLET 2 TAB PO (09:09)
[2023-02-02] MEDS: Sertraline HCL 50 MG TABLET 150 MG PO (09:09)
[2023-02-02] MEDS: metFORMIN HCl ER 500 MG TAB.ER.24H PO (09:09)
[2023-02-02] MEDS: polyethylene glycoL 3350 17 GM POWD.PACK PO (09:09)
[2023-02-02] MEDS: Tamsulosin HCL 0.4 MG CAPSULE PO (09:09)
[2023-02-02 09:28] LABS: Creatinine Clr Calc Pharmacy 77.4; Estimated Glomerular Filt Rate > 60
[2023-02-02 09:37] VITALS: BP 152/70; PULSE 73; RESP 18; TEMP 36.8; O2SAT 94
== END 2023-02-02 13:10 | disposition home or self-care (01) | DRG 885 ==
LOC: HO.ED 17:33 → HO.PADLT16 01-04 10:03
PROVIDERS: Physician Assistant; Psychiatry & Neurology Psychiatry; Social Worker; Admitting Provider Psychiatry & Neurology Psychiatry; Emergency Provider Emergency Medicine; Visit Provider Psychiatry & Neurology Psychiatry
PROC: GZB4ZZZ Other Electroconvulsive Therapy (ICD-10-PCS; CPT 90870; principal; 2023-01-13 10:30)
DX: F25.1 Schizoaffective disorder, depressive type (principal); F06.1 Catatonic disorder due to known physiological condition; N40.0 Benign prostatic hyperplasia without lower urinary tract symptoms; Z20.822 Contact with and (suspected) exposure to COVID-19; Z79.84 Long term (current) use of oral hypoglycemic drugs; Z79.899 Other long term (current) drug therapy
CPT/HCPCS: 36415; 80048; 80053; 80076; 80159; 80178; 80307; 81003; 82565; 82947; 83735; 85025; 85048; 87635; 90870; 93005; 93971; 99285; J0330; J2060; J2405

== ENCOUNTER → 2023-01-04 09:57 | Outpatient (BNV) | payer MEDICARE, MEDICAID, SELFPAY | PROVIDERS: Admitting Provider Psychiatry & Neurology Psychiatry; Emergency Provider Emergency Medicine; Visit Provider Psychiatry & Neurology Psychiatry | DX: F25.1 Schizoaffective disorder, depressive type (principal) | CPT/HCPCS: 90870; 99231; 99232; 99499 ==

== ENCOUNTER → 2023-01-04 09:57 | Outpatient (BNV) | payer MEDICARE, MEDICAID, SELFPAY | PROVIDERS: Admitting Provider Psychiatry & Neurology Psychiatry; Emergency Provider Emergency Medicine; Visit Provider Psychiatry & Neurology Psychiatry | DX: F25.1 Schizoaffective disorder, depressive type (principal) | CPT/HCPCS: 90792; 90870; 99231; 99232; 99239 ==

== ENCOUNTER → 2023-01-04 09:57 | Outpatient (BNV) | payer MEDICARE, MEDICAID, SELFPAY | PROVIDERS: Admitting Provider Psychiatry & Neurology Psychiatry; Emergency Provider Emergency Medicine; Visit Provider Physician Assistant | DX: R06.02 Shortness of breath (principal) | CPT/HCPCS: 99221 ==

== ENCOUNTER 2023-02-23 11:33 | Outpatient (REF) | payer MEDICARE, MEDICAID, SELFPAY ==
[2023-02-23 11:48] LABS: MANUAL DIFF FLAG NO
[2023-02-23 12:17] LABS: Basophils Percent Auto 0.1 % (0-2); Hematocrit 42.3 % (42.0-52.0); Hemoglobin 13.3 g/dl (14.0-18.0); Imm Gran Abs Auto 0.04 X10*3/uL (0.00-0.03); Imm Gran Pct Auto 0.6 % (0.0-0.4); Lymphocytes Absolute Auto 1.4 X10*3/uL (1.2-4.9); Lymphocytes Percent Auto 20.8 % (20-40); Mean Corpuscular HGB Conc 31.4 g/dl (31.0-36.0); Mean Corpuscular Hemoglobin 28.5 pg (27.0-33.0); Mean Corpuscular Volume 90.8 fL (80.0-98.0); Monocytes Absolute Auto 0.4 X10*3/uL (0.1-1.2); Monocytes Percent Auto 6.5 % (2-11); Neutrophils Absolute Auto 4.9 x10*3/uL (2.0-8.3); Platelet Count 178 X10*3/uL (160-400); Red Blood Count 4.66 X10*6/uL (4.60-5.80); Red Cell Distribution Width 13.1 % (11.0-16.0); White Blood Count 6.7 X10*3/uL (4.8-10.8)
== END 2023-02-23 11:34 | disposition home or self-care (01) ==
LOC: HO.LABR 11:33
PROVIDERS: Visit Provider Clinical Nurse Specialist Psychiatric/Mental Health, Adult
DX: Z79.899 Other long term (current) drug therapy (principal)
CPT/HCPCS: 36415; 85025

== ENCOUNTER 2023-03-05 10:05 | Inpatient (IN) | payer MEDICARE, MEDICAID, SELFPAY ==
--- NOTE | ~2023-03-05 | XR_ITS ---
EXAMINATION: XR CHEST CLINICAL INFORMATION: Acute mental status change COMPARISON: Previous chest x-ray May 2022 TECHNIQUE: Frontal view of the chest was obtained. FINDINGS: No significant abnormality is noted involving the heart, lungs, mediastinum, bony thorax or soft tissues. Degenerative changes of the thoracic spine. XR/XR chest 1V IMPRESSION: Unremarkable examination.
--- NOTE | ~2023-03-05 | CT_ITS ---
EXAMINATION: CT HEAD WITHOUT CONTRAST CLINICAL INFORMATION: Acute mental status change COMPARISON: Previous head CT from 2019 TECHNIQUE: Contiguous axial imaging was performed from the skull base to vertex without intravenous administration of contrast. This CT examination was performed using dose optimization techniques as appropriate, variously including the following: *Automated exposure control *Adjustment of mA and/or kV according to patient size (this includes techniques or standardized protocols for targeted exams where dose is matched to indication/reason for exam; i.e. extremities or head) *Use of iterative reconstruction technique DLP: 843mGy-cm FINDINGS: there is no evidence of an extra-axial collection. There is no evidence of intra or extra-axial hemorrhage. The ventricles and extra-axial CSF spaces are appropriate. Joe-white matter differentiation is normal. No mass, mass effect or infarct is seen. There is partial soft tissue opacification of the left side of the sphenoid sinus. Paranasal sinuses, mastoid air cells and middle ears are otherwise clear. CT/CT head/brain wo IV con IMPRESSION: No acute intracranial findings. Mild sphenoid sinus disease.
[2023-03-05 10:23] VITALS: BP 126/71; BP 135/77; PULSE 69; PULSE 70; RESP 12; TEMP 37; O2SAT 95; O2SAT 96
--- NOTE | 2023-03-05 10:27 | ECG_ITS ---
Test Reason : AMS Blood Pressure : / mmHG Vent. Rate : 065 BPM Atrial Rate : 065 BPM P-R Int : 176 ms QRS Dur : 086 ms QT Int : 374 ms P-R-T Axes : 043 023 037 degrees QTc Int : 388 ms Normal sinus rhythm Nonspecific T wave abnormality Abnormal ECG When compared with ECG of 03-JAN-2023 17:09, Nonspecific T wave abnormality no longer evident in Inferior leads Referred By: Florecita Ellison Electronically Signed By:Homer Paige
--- NOTE | 2023-03-05 10:27 | ED_ITS ---
HPI - General Adult General Chief complaint: Altered Mental Status Stated complaint: AMS LETHARGIC Time Seen by Provider: 03/05/23 10:26 Source: patient and EMS Mode of arrival: EMS Limitations: no limitations History of Present Illness HPI narrative: Patient is a 57 year old assigned male at with a history of schizoaffective disorder, HTN, and DM presenting to the emergency department today with concerns of being altered. Patient states that he feels fine and does not have any complaints. EMS states that [facility] called EMS because when she arrived at his house to give him his meds, he seemed altered. Patient denies any dizziness, lightheadedness, abdominal pain, nausea, vomiting, fever, chills, blurry vision, double vision, loss of vision, chest pain, difficulty breathing, shortness of breath, back pain, night sweats, pain with urination, increased urinary frequency, increased urinary urgency, blood in his urine or stool, syncope or a near syncopal episode, recent trauma or falls, bowel incontinence, bladder incontinence, bowel retention, bladder retention, or any other complaints at this time. Relieving factors: none Exacerbating factors: none Associated symptoms: denies other symptoms Treatments prior to arrival: none Related Data Home Medications Medication Instructions Recorded Confirmed lancets 28 gauge (FreeStyle 01/04/23 01/04/23 Lancets) tamsulosin 0.4 mg capsule 0.4 mg PO DAILY 01/04/23 01/04/23 Previous Rx's Medication Instructions Recorded clozapine 100 mg tablet 300 mg (3 x 100 mg) PO BEDTIME #45 07/19/22 tabs lithium carbonate 300 mg capsule 600 mg (2 x 300 mg) PO BEDTIME #60 07/19/22 caps lorazepam 1 mg tablet 1 mg PO TID #90 tabs 07/19/22 sennosides 8.6 mg tablet (Senna 17.2 mg (2 x 8.6 mg) PO BEDTIME 09/05/22 Lax) #90 tabs docusate sodium 100 mg capsule 200 mg (2 x 100 mg) PO BID #120 12/18/22 caps metformin 500 mg tablet,extended 500 mg PO DAILY #30 tabs 12/26/22 release 24 hr omeprazole 20 mg capsule,delayed 20 mg PO BID@0630,1630 30 days #60 02/01/23 release caps polyethylene glycol 3350 17 gram 17 g PO DAILY 30 days #30 ea 02/01/23 oral powder packet sertraline 50 mg tablet 150 mg (3 x 50 mg) PO DAILY #0 tabs 02/01/23 Allergies Allergy/AdvReac Type Severity Reaction Status Date / Time No Known Allergies [NKA] Allergy Unknown NONE Verified 12/21/22 09:41 Review of Systems 2 Constitutional: Constitutional: Reports no additional constitutional complaints, Denies chills, Denies fever(s) and Denies night sweats Eyes: Eyes: Reports no additional eye complaints, Denies blurry vision, Denies change in vision, Denies diplopia, Denies eye discharge, Denies loss of vision and Denies eye pain ENT: Denies dizziness Cardiovascular: Cardiovascular: Reports no additional cardiovascular complaints, Denies chest pain, Denies lightheadedness, Denies Loss of Consciousness and Denies dyspnea Respiratory: Respiratory: Reports no additional respiratory complaints and Denies dyspnea Gastrointestinal: Gastrointestinal: Reports no additional gastrointestinal complaints, Denies abdominal pain, Denies melena, Denies hematochezia, Denies change in bowel habits and Denies change in stool character Genitourinary: Genitourinary: Reports no additional male genitourinary complaints, Denies hematuria, Denies oliguria, Denies difficulty urinating, Denies dysuria, Denies urinary frequency, Denies urinary hesitancy, Denies urinary incontinence and Denies urinary urgency Musculoskeletal: Musculoskeletal: Reports no additional musculoskeletal complaints, Denies numbness and Denies tingling Neurologic: Denies dizziness, Denies loss of vision, Denies numbness and Denies tingling Psychiatric: Psychiatric: Reports no additional psychiatric complaints Endocrine: Endocrine: Reports no additional endocrine complaints Hematologic/Lymphatic: Hematologic/Lymphatic: Reports no additional hematologic/lymphatic complaints Allergic/Immunologic: Allergic/Immunologic: Reports no additional allergic/immunologic complaints PMFSH Past Medical History Attestation statement: The following information was validated with the patient. Source: old records reviewed and nursing notes reviewed Medical History (Updated 03/05/23 @ 14:57 by ALEC Acuna) Nocturnal hypoxia Joint inflammation of right hand and wrist Status post fall Adult general medical exam Screening for colon cancer Screening for prostate cancer Cough Routine medical exam Schizophrenia, catatonic BPH (benign prostatic hyperplasia) Essential (primary) hypertension Diabetes mellitus Surgical History History of colonoscopy History of tooth extraction History of root canal procedure Family History Family History Mother Cancer Father Kidney agenesis Social History Social History Household Members: None Housing: Apartment Do you presently have visiting nurse or other home services: Yes ([place]) Alcohol intake: never Comment: 1:1 Patient Tobacco Use Status: Never used Tobacco e-Cigarette/Vaping Use: Never Used Second Hand Smoke Exposure: No Advance Directives: No Advance Directives Information Provided: No service: No Current occupational status: employed Sexual orientation: Unable to collect Cognitive needs: No Hearing needs: No Vision needs: No Physical Exam ED Vital Signs: Vital Signs - 24 hr 03/05/23 10:23 03/05/23 12:01 Temperature 98.6 F Pulse Rate 69 65 Respiratory Rate 12 16 Blood Pressure 135/77 131/75 Pulse Oximetry 96 96 Oxygen Delivery Method Room Air Room Air BMI result Body Mass Index 0.4 Const General: cooperative, no acute distress, alert and awake Nutritional Appearance: well nourished Orientation/consciousness: patient oriented x3 Limitations: no limitations HENMT Head: Yes normal to inspection and Yes atraumatic Ears: hearing grossly normal bilaterally and external ears normal General nose exam: Normal external nose present, no nasal discharge noted and no epistaxis Face and sinus: Yes normal facial exam, No abrasion and No laceration Mouth: Normal oral and palatal mucosa present, no drooling and no muffled voice Eyes General: appearance normal, both eyes and all related structures Periorbital: periorbital findings normal Eyelids: Yes eyelids normal Conjunctivae: conjunctivae normal Pupils: Equal, round and reactive pupils present EOM: EOMs intact bilaterally Neck Neck: Yes normal visual inspection, Yes full ROM and Yes no lymphadenopathy Chest Chest palpation & inspection: normal inspection of the chest Resp Effort & Inspection: normal respiratory effort and able to speak in complete sentences Auscultation: clear to auscultation bilaterally Cardio Rate: regular rate Rhythm: regular rhythm GI Inspection: Yes normal to inspection Palpation (GI): Soft to palpation, not firm, nontender and no guarding Neuro General: patient oriented x3 and moves all extremities Cranial nerves: Yes Equal, round and reactive pupils present Cognition (Neuro): normal cognition Motor exam (neuro): 5/5 motor strength present throughout Sensory Exam: Normal double simultaneous stimulation for sensation Coordination: [id number] test normal Extrem General: Yes normal to inspection, Yes full ROM and Yes capillary refill normal Psych Appearance: grossly normal Mental Status: mental status grossly normal Affect: normal affect Attitude: cooperative Thought process: Normal thought process present Thought content: Normal thought content present Insight: Good insight present (Psych) Medications Administered Discontinued Medications Generic Name Dose Route Start Last Admin Trade Name Freq PRN Reason Stop Dose Admin Sodium Chloride 1,000 mls @ 999 mls/hr 03/05/23 11:30 03/05/23 12:03 Ns IV 03/05/23 12:30 999 mls/hr .Q1H1M KRISTIN Administration Medical Decision Making Medical Decision Making [facility] Narrative: Patient is a 57 year old assigned male at with a history of schizoaffective disorder, HTN, and DM presenting to the emergency department today with no acute complaints. Patient's physical exam was unremarkable. Patient's blood work was unremarkable. Patient's urine showed no acute process. Patient's EKG was unremarkable. Patient's chest x-ray and head CT showed no acute process. I explained my physical exam findings as well as all test results to the patient. I answered all questions asked by the patient. Patient disposition will be determined after CARE team evaluation. Differential Diagnosis Differential Diagnoses: The differential diagnosis associated with the presentation includes Schizoaffective disorder Admission/Observation Consideration of admission/observation: Escalation of care including admission/observation considered Patient's disposition will be determined after CARE team evaluation. Lab Data [facility] Lab Attestation statement: I reviewed the patient's lab results. My interpretation of these studies and their corresponding values is that they are grossly normal. 03/05/23 11:05 03/05/23 11:05 Labs: Lab Results 03/05/23 03/05/23 Range/Units 11:05 14:01 WBC 6.7 (4.8-10.8) X10*3/uL RBC 4.73 (4.60-5.80) X10*6/uL Hgb 13.5 L (14.0-18.0) g/dl Hct 42.3 (42.0-52.0) % MCV 89.4 (80.0-98.0) fL MCH 28.5 (27.0-33.0) pg MCHC 31.9 (31.0-36.0) g/dl RDW 13.1 (11.0-16.0) % Plt Count 149 L (160-400) X10*3/uL MPV 11.1 (9.4-12.4) fL Immature Gran % (Auto) 0.6 H (0.0-0.4) % Neut % (Auto) 74.0 H (45-73) % Lymph % (Auto) 18.4 L (20-40) % [place] % (Auto) 7.0 (2-11) % Eos % (Auto) 0.0 (0-4) % Baso % (Auto) 0.0 (0-2) % Lymph # (Auto) 1.2 (1.2-4.9) X10*3/uL [place] # (Auto) 0.5 (0.1-1.2) X10*3/uL Eos # (Auto) 0.0 (0.0-0.4) X10*3/uL Baso # (Auto) 0.0 (0.0-0.2) X10*3/uL Abs Immat Gran (auto) 0.04 H (0.00-0.03) X10*3/uL Absolute Neuts (auto) 4.9 (2.0-8.3) x10*3/uL Absolute Nucleated RBC 0.000 (0.0-0.012) X10*3/uL Nucleated RBC % (auto) 0.0 (0.0-0.2) /100WBC Sodium 143 (135-145) mmol/L Potassium 4.3 (3.3-5.1) mmol/L Chloride 109 H (96-108) mmol/L Carbon Dioxide 27 (22-29) mmol/L Anion Gap 11 L (12-20) BUN 17 H (9-16) mg/dL Creatinine 1.42 H (0.5-1.4) mg/dL Estim Creat Clear Calc 79.0 Estimated GFR 51 Random Glucose 107 (60-115) mg/dL Calcium 9.3 (8.4-10.2) mg/dL Total Bilirubin 0.6 (0.0-1.0) mg/dL AST 10 (5-37) U/L ALT 7 (0-40) U/L Alkaline Phosphatase 60 (39-117) U/L Total Protein 7.3 (6.5-8.0) g/dL Albumin 4.4 (3.5-5.0) g/dL Urine Color Yellow Urine Appearance Clear Urine pH 6.5 (5.0-9.0) Ur Specific [place] 1.010 (1.005-1.025) Urine Protein Negative (Neg-Trace) mg/dL Urine Glucose (UA) Negative (Negative) mg/dL Urine Ketones Negative (Negative) mg/dL Urine Blood Negative (Negative) Urine Nitrite Negative (Negative) Ur Leukocyte Esterase Negative (Negative) Salicylates < 5.0 L (15-30) mg/dL Urine Opiates Screen Not Detected (Not Detect) Urine Fentanyl Screen Not Detected (Not Detect) Acetaminophen < 3 (<30) mcg/mL Ur Barbiturates Screen Not Detected (Not Detect) Ur Phencyclidine Scrn Not Detected (Not Detect) Ur Amphetamines Screen Not Detected (Not Detect) U Benzodiazepines Scrn Not Detected (Not Detect) Urine Cocaine Screen Not Detected (Not Detect) U Marijuana (THC) Screen Not Detected (Not Detect) Ethyl Alcohol < 10 mg/dL COVID-19 (SHAKA) Negative (Negative) COVID-19 Clin Com See Note Independent Interpretation I performed an independent interpretation of an: EKG, Plain X-Ray and CT Scan Interpretation: My interpretation is in agreement with the radiologist's impression of these imaging studies. - EXAMINATION: XR CHEST CLINICAL INFORMATION: Acute mental status change COMPARISON: Previous chest x-ray May 2022 TECHNIQUE: Frontal view of the chest was obtained. FINDINGS: No significant abnormality is noted involving the heart, lungs, mediastinum, bony thorax or soft tissues. Degenerative changes of the thoracic spine. XR/XR chest 1V IMPRESSION: Unremarkable examination. Dictated By: Dorie Ramos MD Signed By: Electronically signed by Dorie Ramos MD 03/05/23 1142 - EXAMINATION: CT HEAD WITHOUT CONTRAST CLINICAL INFORMATION: Acute mental status change COMPARISON: Previous head CT from 2019 TECHNIQUE: Contiguous axial imaging was performed from the skull base to vertex without intravenous administration of contrast. This CT examination was performed using dose optimization techniques as appropriate, variously including the following: *Automated exposure control *Adjustment of mA and/or kV according to patient size (this includes techniques or standardized protocols for targeted exams where dose is matched to indication/reason for exam; i.e. extremities or head) *Use of iterative reconstruction technique DLP: 843mGy-cm FINDINGS: there is no evidence of an extra-axial collection. There is no evidence of intra or extra-axial hemorrhage. The ventricles and extra-axial CSF spaces are appropriate. Joe-white matter differentiation is normal. No mass, mass effect or infarct is seen. There is partial soft tissue opacification of the left side of the sphenoid sinus. Paranasal sinuses, mastoid air cells and middle ears are otherwise clear. CT/CT head/brain wo IV con IMPRESSION: No acute intracranial findings. Mild sphenoid sinus disease. Dictated By: Dorie Ramos MD Signed By: Electronically signed by Dorie Ramos MD 03/05/23 1245 - Vent. Rate: 065 BPM Atrial Rate: 065 BPM P-R Int: 176 ms QRS Dur: 086 ms QT Int: 374 ms P-R-T Axes: 043 023 037 degrees QTc Int: 388 ms Normal sinus rhythm Nonspecific T wave abnormality Abnormal ECG When compared with ECG of 03-JAN-2023 17:09, Nonspecific T wave abnormality no longer evident in Inferior leads DD/ 1035 Radiology Impression Discussion of test interpretation with radiology: I have reviewed the radiologist's reading. Independent Historian Clinical information obtained from an independent historian. History obtained from or confirmed by: EMS (EMS provided additional history and confirmed the history provided by the patient.) Chronic Conditions Patient?s care impacted by: Diabetes and Hypertension Critical Care Time Critical Care Time Critical Care Time: Yes Total Critical Care Time: 45 Attestation: I spent 45 minutes of Critical Care Time with this patient. This does not include time spent on separately reported billable procedures. Discharge Plan Discharge Clinical Impression: Schizoaffective disorder, depressive type Patient Disposition: Still a Patient Prescriptions: No Action sennosides [Senna Lax] 8.6 mg tablet 17.2 mg PO BEDTIME Qty: 90 3RF docusate sodium 100 mg capsule 200 mg PO BID Qty: 120 3RF metformin 500 mg tablet extended release 24 hr 500 mg PO DAILY Qty: 30 1RF clozapine 100 mg Tablet 300 mg PO BEDTIME Qty: 45 0RF lithium carbonate 300 mg Capsule 600 mg PO BEDTIME Qty: 60 0RF lorazepam 1 mg Tablet 1 mg PO TID Qty: 90 0RF tamsulosin 0.4 mg capsule 0.4 mg PO DAILY (DME) lancets [FreeStyle Lancets] 28 gauge misc See Rx Instructions .ROUTE .COMPLEX Rx Instructions: TEST BLOOD SUGAR ONCE DAILY polyethylene glycol 3350 17 gram Powder In Packet 17 g PO DAILY 30 Days Qty: 30 0RF omeprazole 20 mg Capsule,Delayed Release(Dr/Ec) 20 mg PO BID@0630,1630 30 Days Qty: 60 0RF sertraline 50 mg Tablet 150 mg PO DAILY Qty: 0 0RF
[2023-03-05 11:08] LABS: MANUAL DIFF FLAG NO
[2023-03-05 11:10] LABS: Hematocrit 42.3 % (42.0-52.0); Hemoglobin 13.5 g/dl (14.0-18.0); Imm Gran Abs Auto 0.04 X10*3/uL (0.00-0.03); Imm Gran Pct Auto 0.6 % (0.0-0.4); Lymphocytes Absolute Auto 1.2 X10*3/uL (1.2-4.9); Lymphocytes Percent Auto 18.4 % (20-40); Mean Corpuscular HGB Conc 31.9 g/dl (31.0-36.0); Mean Corpuscular Hemoglobin 28.5 pg (27.0-33.0); Mean Corpuscular Volume 89.4 fL (80.0-98.0); Mean Platelet Volume 11.1 fL (9.4-12.4); Monocytes Absolute Auto 0.5 X10*3/uL (0.1-1.2); Neutrophils Absolute Auto 4.9 x10*3/uL (2.0-8.3); Platelet Count 149 X10*3/uL (160-400); Red Blood Count 4.73 X10*6/uL (4.60-5.80); Red Cell Distribution Width 13.1 % (11.0-16.0); White Blood Count 6.7 X10*3/uL (4.8-10.8)
[2023-03-05 11:25] LABS: COVID-19 Test Negative (Negative); IDNOW Serial# 08D9AD1C
[2023-03-05 11:26] LABS: Alanine Aminotransferase 7 U/L (0-40); Albumin Level 4.4 g/dL (3.5-5.0); Alkaline Phosphatase 60 U/L (39-117); Anion Gap 11 (12-20); Aspartate Amino Transferase 10 U/L (5-37); Bilirubin Total 0.6 mg/dL (0.0-1.0); Blood Urea Nitrogen 17 mg/dL (9-16); Calcium 9.3 mg/dL (8.4-10.2); Carbon Dioxide 27 mmol/L (22-29); Chloride 109 mmol/L (96-108); Estimated Glomerular Filt Rate 51; Ethanol < 10 mg/dL; Glucose Random 107 mg/dL (60-115); Potassium 4.3 mmol/L (3.3-5.1); Sodium 143 mmol/L (135-145); Total Protein 7.3 g/dL (6.5-8.0)
[2023-03-05 11:29] LABS: Acetaminophen LAB < 3 mcg/mL (<30); Salicylate < 5.0 mg/dL (15-30)
[2023-03-05 12:01] VITALS: BP 131/75; PULSE 65; RESP 16; O2SAT 96
[2023-03-05] MEDS: 0.9 % Sodium Chloride 1,000 ML 999 ML IV (12:03)
[2023-03-05 14:10] LABS: Appearance Urine Clear; Color Urine Yellow; Glucose Urine UA Negative (Negative); Leukocyte Esterase Urine Negative (Negative); Nitrite Urine Negative (Negative); PH 6.5 (5.0-9.0); Urine Blood Negative (Negative); Urine Ketones Negative (Negative); Urine Protein Negative (Neg-Trace)
[2023-03-05 14:15] LABS: Amphetamine Screen Urine Not Detected (Not Detect); Barbiturates, Urine Not Detected (Not Detect); Benzodiazepines Screen Urine Not Detected (Not Detect); Cannabinoid Screen Urine Not Detected (Not Detect); Cocaine Screen Urine Not Detected (Not Detect); Fentanyl, urine Not Detected (Not Detect); Opiate Screen Urine Not Detected (Not Detect); Phencyclidine Screen Urine Not Detected (Not Detect)
[2023-03-05 19:18] VITALS: BP 131/70; PULSE 63; RESP 20; TEMP 36.8; O2SAT 97
--- NOTE | 2023-03-05 20:06 | PC.NURSE ---
Patient is alert and oriented x3. VSS. Patient reports occasional generalized pain which is usually managed with repositioning. Patient requested urinal. This RN assisted patient to use a urinal, he voided 345 mL of yellow, clear, non-odorous urine. Patient instructed in call contreras use, patient verbalized understanding. Call contreras placed within patient's reach.
--- NOTE | 2023-03-05 21:06 | MHC.CARE ---
Pt was seen by the CARE Team and will be made a follow up to allow the team to contact pt's providers. Pt is aware of plan
[2023-03-06] VITALS (11 sets, daily range): BP systolic 115–160; BP diastolic 60–77; PULSE 59–91; RESP 14–20; TEMP 36.2–37.1; O2SAT 92–98
--- NOTE | 2023-03-06 00:54 | PC.NURSE ---
this rn assumed care of pt @ 2100. pt sleeping but arousable to name. med rec not previously performed on previous shift. this rn performed med rec utilizing last fill date in medical record. awaiting medications to be continued
[2023-03-06 05:25] LABS: Lithium 0.65 mmol/L (0.60-1.20)
--- NOTE | 2023-03-06 05:30 | PC.NURSE ---
this rn attempted at 0530 to give report to pacu prior to scheduled ect @ 0600
--- NOTE | 2023-03-06 05:45 | PC.NURSE ---
this rn attempted @ this time to give report to rn referral prior to transport to scheduled ect
--- NOTE | 2023-03-06 07:14 | PC.NURSE ---
this rn gave rn to rn report to laurent puentes in pacu. pt to go down to pacu for scheduled ect procedure. pacu staff to bring pt down to pacu bay 5. hand off report given to oncoming shift rn
--- NOTE | 2023-03-06 07:16 | PC.NURSE ---
Patient taken to ECT by PACU staff.
--- NOTE | 2023-03-06 07:23 | MHC.SHP ---
Pre-Procedural Eval Section A Date of Service: 03/06/23 The patient is an INPATIENT: No Changes since office visit: No Cold of Flu in the past 2 weeks, No New Medical Problems, No Changes in Medication and No Patient answered all questions The History & Physical has been completed within 30 days and I have reviewed it.: Yes Section B Chief Complaint: AMS LETHARGIC Details of Present Illness: The patient was transferred from the ED, on 03/05 [facility] called EMS since the patient was altered. He was transferred from the ED to PACU for ECT and reassess after the procedure. Relevant Family History (Specify if Yes): No Relevant Social History: None Present Medications: see Short Stay Collaborative assessment Medical History: No relevant PMH History of Previous Operations: No relevant previous surgery Allergies: Allergies Allergy/AdvReac Type Severity Reaction Status Date / Time No Known Allergies [NKA] Allergy Unknown NONE Verified 12/21/22 09:41 Review of Systems Sugical H&P ROS: Negative: Constitution, Cardiovascular, Respiratory, Neurological, Psychiatric, Hem-Onc, Allergic/Immunologic, Gastrointestinal, Genitourinary, Musculoskeletal, Integumentary, Endocrine and Eyes/Ears/Nose/Throat Exam Surgical H&P Exam: Normal: HEENT, Normal: Heart, Normal: Lungs, Normal: Extremities, Normal: Abdomen, Normal: Skin and Normal: Neurological Plan Diagnosis/Plan: Unchanged I have reviewed the history and physical and performed a pertinent physical examination on my patient. No changes have occurred unless specified. Time Spent With Patient Time: Total time managing care of this patient today __20__ minutes.
[2023-03-06 07:28] LABS: Glucose, Whole Blood 97 mg/dL (60-115)
--- NOTE | 2023-03-06 07:43 | HO.ECTPROC ---
ECT Procedure Note Diagnosis/Treatment Date of Service: 03/06/23 Diagnosis: Schizoaffective Disorder Previous ECT Date: 02/01/23 Treatment: Maintenance Interval Clinical Notes: The patient was brought to our ED last weekend since the [facility] noticed that he was mute and on the ED, the care team assessed. We did the ECT and he will be reassessed after the procedure. Before, the procedure, he was awake and he was able to answer a few questions, he signed the consents for ECT and anestesia, still minimally responsive. I changed the ECT to bitemperal at 0.5 100% and he had a motor seizures for more than 20s but the computer was unable to register the seizure that was over 60s. He woke up without any problems, I ordered Ativan 1 mg after the procedure for catatonia. Time: Total time managing care of this patient today ____ minutes. ECT Settings Device: THYMATRON DGx Electrode Placement: Bifrontal Program/Pulse Width: 0.50 Energy Percent: 100 Seizure Duration By EEG (in seconds): 0 (computer didn't recognize seizure activity but he had seizure activity until 81s) By Motor Observation (in seconds): 24 Medications Administration General Anesthetic: Etomidate (18) Muscle Relaxant: Succinylcholine (120) Ancillary Medications Anti-emetics: Zofran - Pre ECT Miscillaneous Medications: Other (Ativan 1 mg IVP after procedure) Airway Management Airway Management: Bag Mask Ventilation Treatment Recommendations No Changes Recommended: No change
[2023-03-06] MEDS: LORazepam 2 MG/ML VIAL 1 MG IVPUSH (07:58)
--- NOTE | 2023-03-06 08:01 | HO.ANESPROP2 ---
[facility] Active Problems Active Problems: All Active Problems (Updated 03/05/23 @ 14:57 by ALEC Acuna) Schizoaffective disorder, depressive type (Acute) Mild sleep apnea (Acute) Benign prostate hyperplasia (Acute) Essential hypertension (Acute) Right hip pain (Acute) Essential (primary) hypertension (Acute) Diabetes mellitus (Acute) Past Medical History Medical History Nocturnal hypoxia Joint inflammation of right hand and wrist Status post fall Adult general medical exam Screening for colon cancer Screening for prostate cancer Cough Routine medical exam Schizophrenia, catatonic BPH (benign prostatic hyperplasia) Essential (primary) hypertension Diabetes mellitus Family History Family History Mother Cancer Father Kidney agenesis Family history of problems with anesthesia: No Surgical History Surgical History History of colonoscopy History of tooth extraction History of root canal procedure History of Problems with Anesthesia: No Social History Social History Household Members: None Housing: Apartment Do you presently have visiting nurse or other home services: Yes ([place]) Alcohol intake: former Comment: 1:1 Patient Tobacco Use Status: Never used Tobacco Smoked in Last 30 Days: No e-Cigarette/Vaping Use: Never Used Second Hand Smoke Exposure: No Use of substances other than those prescribed or required for medical reasons: No Advance Directives: No Advance Directives Information Provided: No Healthcare Proxy: No Guardian: No service: No Current occupational status: employed Sexual orientation: Unable to collect Cognitive needs: No Hearing needs: No Vision needs: No Meds Allergies Allergy/AdvReac Type Severity Reaction Status Date / Time No Known Allergies [NKA] Allergy Unknown NONE Verified 12/21/22 09:41 Active Medications: Current Medications Clozapine (Clozapine 100 Mg Tablet) 300 mg PO BEDTIME KRISTIN Docusate Sodium (Docusate Sodium 100 Mg Capsule) 200 mg PO BID KRISTIN [place] Carbonate ([place] Carbonate 300 Mg Capsule) 600 mg PO BEDTIME KRISTIN Lorazepam (Lorazepam 1 Mg Tablet) 1 mg PO TID KRISTIN Metformin HCl (Metformin Hcl Er 500 Mg Tab.Er.24h) 500 mg PO DAILY KRISTIN Omeprazole (Omeprazole 20 Mg Capsule.Dr) 20 mg PO BID@0630,1630 KRISTIN Last Admin: 03/06/23 06:51 Dose: Not Given Sertraline HCl (Sertraline Hcl 50 Mg Tablet) 150 mg PO DAILY [facility] Tamsulosin HCl (Tamsulosin Hcl 0.4 Mg Capsule) 0.4 mg PO DAILY [facility] Home Medications Medication Instructions Recorded Confirmed Last Taken Type lancets 28 gauge (FreeStyle 01/04/23 01/04/23 Unknown History Lancets) tamsulosin 0.4 mg capsule 0.4 mg PO DAILY 01/04/23 03/06/23 01/02/23 17:00 History Exam Height,Weight and Vital Signs: Height 50 ft 10 in Weight 99.79 kg Last Vital Signs Temp 97.5 F 03/06/23 07:25 Pulse 70 03/06/23 07:25 Resp 18 03/06/23 07:25 BP 137/75 03/06/23 07:25 Pulse Ox 96 03/06/23 07:25 O2 Del Method Room Air 03/06/23 07:25 Pertinent Lab Results Pertinent Lab Results: Laboratory Tests 03/05/23 03/05/23 03/06/23 11:05 14:01 05:07 WBC 6.7 RBC 4.73 Hgb 13.5 L Hct 42.3 MCV 89.4 MCH 28.5 MCHC 31.9 RDW 13.1 Plt Count 149 L MPV 11.1 Immature Gran % (Auto) 0.6 H Neut % (Auto) 74.0 H Lymph % (Auto) 18.4 L [place] % (Auto) 7.0 Eos % (Auto) 0.0 Baso % (Auto) 0.0 Lymph # (Auto) 1.2 [place] # (Auto) 0.5 Eos # (Auto) 0.0 Baso # (Auto) 0.0 Abs Immat Gran (auto) 0.04 H Absolute Neuts (auto) 4.9 Absolute Nucleated RBC 0.000 Nucleated RBC % (auto) 0.0 Sodium 143 Potassium 4.3 Chloride 109 H Carbon Dioxide 27 Anion Gap 11 L BUN 17 H Creatinine 1.42 H Estim Creat Clear Calc 79.0 Estimated GFR 51 POC Glucose Random Glucose 107 Calcium 9.3 Total Bilirubin 0.6 AST 10 ALT 7 Alkaline Phosphatase 60 Total Protein 7.3 Albumin 4.4 Urine Color Yellow Urine Appearance Clear Urine pH 6.5 Ur Specific [place] 1.010 Urine Protein Negative Urine Glucose (UA) Negative Urine Ketones Negative Urine Blood Negative Urine Nitrite Negative Ur Leukocyte Esterase Negative Salicylates < 5.0 L Urine Opiates Screen Not Detected Urine Fentanyl Screen Not Detected Acetaminophen < 3 Ur Barbiturates Screen Not Detected Ur Phencyclidine Scrn Not Detected Ur Amphetamines Screen Not Detected U Benzodiazepines Scrn Not Detected [place] 0.65 Urine Cocaine Screen Not Detected U Marijuana (THC) Screen Not Detected Ethyl Alcohol < 10 COVID-19 (SHAKA) Negative COVID-19 Clin Com See Note 03/06/23 07:24 WBC RBC Hgb Hct MCV MCH MCHC RDW Plt Count MPV Immature Gran % (Auto) Neut % (Auto) Lymph % (Auto) [place] % (Auto) Eos % (Auto) Baso % (Auto) Lymph # (Auto) [place] # (Auto) Eos # (Auto) Baso # (Auto) Abs Immat Gran (auto) Absolute Neuts (auto) Absolute Nucleated RBC Nucleated RBC % (auto) Sodium Potassium Chloride Carbon Dioxide Anion Gap BUN Creatinine Estim Creat Clear Calc Estimated GFR POC Glucose 97 Random Glucose Calcium Total Bilirubin AST ALT Alkaline Phosphatase Total Protein Albumin Urine Color Urine Appearance Urine pH Ur Specific [place] Urine Protein Urine Glucose (UA) Urine Ketones Urine Blood Urine Nitrite Ur Leukocyte Esterase Salicylates Urine Opiates Screen Urine Fentanyl Screen Acetaminophen Ur Barbiturates Screen Ur Phencyclidine Scrn Ur Amphetamines Screen U Benzodiazepines Scrn [place] Urine Cocaine Screen U Marijuana (THC) Screen Ethyl Alcohol COVID-19 ([facility]) COVID-19 Clin Com Airway Mallampati Class: Patient Non-Cooperative TM Dist: >3cm Neck ROM: Full Loose/Missing/Broken Teeth: Yes and Upper Heart: RRR Lungs: CTA Assessment and Plan Assessment Anesthesia Assessment: Anesthesia Plan Discussed and Chart Reviewed Final Anesthetic Review Family History of Problems with Anesthesia: No History of Problems with Anesthesia: No NPO: Yes ASA Class: III Final Preanesthetic Review: Meds/Allgs Chart Reviewed, Consent Obtained/Reviewed and Anes Risks/Benef Reviewed Patient Risk: Intermediate Procedure Risk: Intermediate Anesthetic Plan Anesthetic Plan: GA Disposition: Standard PACU
--- NOTE | 2023-03-06 08:39 | PC.NURSE ---
Patient back from ECT. Patient's outreach program ([facility]) Yovana updated per request. Would like a call if patient gets discharged or has medication changes ([phone]).
[2023-03-06 10:11] LABS: Glucose, Whole Blood 97 mg/dL (60-115)
[2023-03-06] MEDS: Sertraline HCL 50 MG TABLET 150 MG PO (10:54)
[2023-03-06] MEDS: Tamsulosin HCL 0.4 MG CAPSULE PO ×2 (10:55→20:58)
[2023-03-06] MEDS: metFORMIN HCl ER 500 MG TAB.ER.24H PO (10:55)
--- NOTE | 2023-03-06 11:03 | PC.NURSE ---
Patient awake, eating breakfast. Reports it's good. Patient cooperative with morning medications, took them without incident.
--- NOTE | 2023-03-06 12:25 | PC.NURSE ---
Patient incontinent of urine. Linens changed, stephanie care provided. MASD noted to coccyx and gluteal cleft area. Call contreras within reach.
--- NOTE | 2023-03-06 13:00 | PC.NURSE ---
Medication list requested from [facility] worker Yovana, received and faxed to pharmacy.
--- NOTE | 2023-03-06 13:40 | PC.NURSE ---
Patient given lunch tray.
--- NOTE | 2023-03-06 13:52 | PHA.MEDREC ---
Pharmacy Consult ? Medication Reconciliation Pharmacy has completed the medication reconciliation. Reviewed and updated list of medications from faxed med list.
--- NOTE | 2023-03-06 15:37 | PC.ADMIT ---
Benjamin is a 57-year-old male [place] [facility] [place] for treatment of schizoaffective disorder, bipolar type. Tox screen negative, [place] 0.65. Pt was recently discharged from 01/31/23. Pt was brought into the ED after he was not at his baseline level of functioning. His [facility] worker stated he was unable to make eye contact, had delays of speech and appeared to have signs of catatonia. During admission assessment, pt was pleasant but appeared flat and guarded with thought-blocking. Pt was able to make eye contact but stated he was tired and asked to sleep. Per crisis eval, pt reports good sleep and appetite. Pt reports feeling slow and denies SI/HI. Pt received ECT earlier today. Pt placed on 15 minute safety checks.
--- NOTE | 2023-03-06 16:09 | HE.PHANOTE ---
RE: clozapine Spoke to nurse Zambrano who confirmed she spoke to Benjamin's visiting nurse and he last received his dose on 03/04/23
[2023-03-06] MEDS: Sennosides 8.6 MG TABLET 17.2 MG PO (20:58)
[2023-03-06] MEDS: Lithium Carbonate ER 300 MG TABLET.ER 600 MG PO (20:58)
[2023-03-06] MEDS: Docusate Sodium 100 MG CAPSULE 200 MG PO (20:58)
[2023-03-06] MEDS: LORazepam 1 MG TABLET PO (20:58)
[2023-03-06] MEDS: cloZAPine 100 MG TABLET 300 MG PO (20:59)
[2023-03-07 07:42] VITALS: BP 134/83; PULSE 83; RESP 16; TEMP 36.1; O2SAT 94
[2023-03-07] MEDS: Docusate Sodium 100 MG CAPSULE 200 MG PO ×2 (08:26→21:01)
[2023-03-07] MEDS: Sertraline HCL 50 MG TABLET 150 MG PO (08:26)
[2023-03-07] MEDS: metFORMIN HCl ER 500 MG TAB.ER.24H PO (08:26)
[2023-03-07] MEDS: LORazepam 1 MG TABLET PO ×3 (08:26→20:59)
[2023-03-07] MEDS: Omeprazole 20 MG CAPSULE.DR PO (08:26)
[2023-03-07] MEDS: polyethylene glycoL 3350 17 GM POWD.PACK PO (08:27)
--- NOTE | 2023-03-07 08:55 | P.HPPS_ITS ---
HPI Date of Service: 03/07/23 Chief Complaint: Psychosis HPI Narrative: per CARE team evaluation, pt was referred for evaluation by his VNA, who found him slower than usual and appearing to decompensate. he was found suitable for admission and received one ECT Tx prior to admission. he is slated for another course of ECT inpatient. he appears vastly improved from when he was admitted most recently (01/04/23), but not as well as when he was discharged (01/31/23). he is clearly slower, more distracted, and less spontaneous. he endorses depressed mood, denies SI/AVH. he endorses interest in ECT. Past Psychiatric History: Inpatient: multiple in the past. h/o ECT for catatonia. OP: [facility] [place] Past medication trials: clozaril, ativan, sertraline, olanzapine. Medical Evaluation Reviewed: Yes [facility] Medical History Nocturnal hypoxia Joint inflammation of right hand and wrist Status post fall Adult general medical exam Screening for colon cancer Screening for prostate cancer Cough Routine medical exam Schizophrenia, catatonic BPH (benign prostatic hyperplasia) Essential (primary) hypertension Diabetes mellitus Surgical History History of colonoscopy History of tooth extraction History of root canal procedure Family History: unknown Social History: lives independently, works, drives. apartment in [place]. Substance History: none Trauma History: unknown Diagnostics Vital Signs (24Hr): Vital Signs - 24 hr 03/06/23 12:24 03/06/23 19:15 03/07/23 07:42 Temperature 98.7 F 97.2 F 97.0 F Pulse Rate 83 79 83 Respiratory Rate 18 16 16 Blood Pressure 135/60 115/64 134/83 Pulse Oximetry 95 94 94 Oxygen Delivery Method Room Air Room Air Room Air BMI result Body Mass Index 0.4 Labs 03/05/23 11:05 03/05/23 11:05 Labs: Laboratory Results - last 48 hr 03/05/23 03/05/23 03/06/23 11:05 14:01 05:07 WBC 6.7 RBC 4.73 Hgb 13.5 L Hct 42.3 MCV 89.4 MCH 28.5 MCHC 31.9 RDW 13.1 Plt Count 149 L MPV 11.1 Immature Gran % (Auto) 0.6 H Neut % (Auto) 74.0 H Lymph % (Auto) 18.4 L [place] % (Auto) 7.0 Eos % (Auto) 0.0 Baso % (Auto) 0.0 Lymph # (Auto) 1.2 [place] # (Auto) 0.5 Eos # (Auto) 0.0 Baso # (Auto) 0.0 Abs Immat Gran (auto) 0.04 H Absolute Neuts (auto) 4.9 Absolute Nucleated RBC 0.000 Nucleated RBC % (auto) 0.0 Sodium 143 Potassium 4.3 Chloride 109 H Carbon Dioxide 27 Anion Gap 11 L BUN 17 H Creatinine 1.42 H Estim Creat Clear Calc 79.0 Estimated GFR 51 POC Glucose Random Glucose 107 Calcium 9.3 Total Bilirubin 0.6 AST 10 ALT 7 Alkaline Phosphatase 60 Total Protein 7.3 Albumin 4.4 Urine Color Yellow Urine Appearance Clear Urine pH 6.5 Ur Specific [place] 1.010 Urine Protein Negative Urine Glucose (UA) Negative Urine Ketones Negative Urine Blood Negative Urine Nitrite Negative Ur Leukocyte Esterase Negative Salicylates < 5.0 L Urine Opiates Screen Not Detected Urine Fentanyl Screen Not Detected Acetaminophen < 3 Ur Barbiturates Screen Not Detected Ur Phencyclidine Scrn Not Detected Ur Amphetamines Screen Not Detected U Benzodiazepines Scrn Not Detected [place] 0.65 Urine Cocaine Screen Not Detected U Marijuana (THC) Screen Not Detected Ethyl Alcohol < 10 COVID-19 ([facility]) Negative COVID-19 Clin Com See Note 03/06/23 03/06/23 07:24 10:08 WBC RBC Hgb Hct MCV MCH MCHC RDW Plt Count MPV Immature Gran % (Auto) Neut % (Auto) Lymph % (Auto) [place] % (Auto) Eos % (Auto) Baso % (Auto) Lymph # (Auto) [place] # (Auto) Eos # (Auto) Baso # (Auto) Abs Immat Gran (auto) Absolute Neuts (auto) Absolute Nucleated RBC Nucleated RBC % (auto) Sodium Potassium Chloride Carbon Dioxide Anion Gap BUN Creatinine Estim Creat Clear Calc Estimated GFR POC Glucose 97 97 Random Glucose Calcium Total Bilirubin AST ALT Alkaline Phosphatase Total Protein Albumin Urine Color Urine Appearance Urine pH Ur Specific [place] Urine Protein Urine Glucose (UA) Urine Ketones Urine Blood Urine Nitrite Ur Leukocyte Esterase Salicylates Urine Opiates Screen Urine Fentanyl Screen Acetaminophen Ur Barbiturates Screen Ur Phencyclidine Scrn Ur Amphetamines Screen U Benzodiazepines Scrn [place] Urine Cocaine Screen U Marijuana (THC) Screen Ethyl Alcohol COVID-19 ([facility]) COVID-19 Clin Com Imaging Radiology Impressions: ITS Impressions Chest X-Ray 03/05/23 11:16 IMPRESSION: Unremarkable examination. Head CT 03/05/23 11:42 IMPRESSION: No acute intracranial findings. Mild sphenoid sinus disease. Meds/Allergies Meds Home Medications Medication Instructions Recorded Confirmed Type lancets 28 gauge (FreeStyle 01/04/23 01/04/23 History Lancets) tamsulosin 0.4 mg capsule 0.4 mg PO QPM 01/04/23 03/06/23 History Allergies Allergies Allergy/AdvReac Type Severity Reaction Status Date / Time No Known Allergies [NKA] Allergy Unknown NONE Verified 12/21/22 09:41 Mental Status Exam Mental Status Exam Narrative: Appearance: wearing hospital lilliam, fair eye contact, in NAD Behavior: cooperative Psychomotor: moderate retardation Speech: nml rate, decr amount, decr loudness, incr latency TP: linear, logical TC: no delusions or paranoia expressed Affect: constricted, hypo-intense, non-labile mood: i'm having a little bit of a hard time SI: none HI: none VH/AH: none Insight/judgment: fair x 2. Memory/cog: alert, oriented x 3. Assessment & Plan Assessment & Plan (1) Schizoaffective disorder, depressive type: Status: Acute Code(s): F25.1 - Schizoaffective disorder, depressive type Plan continue outpt medications. obtain ECT clearance. begin inpatient ECT, to start monday. Patient educated on: ECT and therapeutic strategies Reason for continued inpatient stay Substantial Risk for: inability to function and rapid decompensation Statement Statement: I have reviewed the history and physical and performed a pertinent examination on my patient. No changes have occurred unless specified. If the History and Physical was not performed prior to admission, the Hospitalist's service will be consulted for completing the admission physical. Time Spent With Patient Time: Total time managing care of this patient today __55__ minutes.
[2023-03-07 09:11] LABS: Glucose, Whole Blood 96 mg/dL (60-115)
--- NOTE | 2023-03-07 16:55 | HO.PM.IMCN ---
History of Present Illness Data of Consult Service Date: 03/07/23 Requesting physician: Alejandro Crane Primary Care Provider: MD ARIELLE Cosby Reason for consult: ECT evaluation 57-year-old male with history of hypertension, [id number] type 2 diabetes, schizoaffective disorder, and depression with catatonia admitted to Psychiatry with consult placed to hospitalist service for ECT evaluation. The patient has no complaints. Patient is noted to be sitting comfortably without any increased work of breathing or distress. He states he is able to walk down the diaz and ascend a flight of stairs. No syncope or lightheadedness. No chest pains, sob, or palpitations. Denies any history of seizure activity. States he has undergone ECT in the past including last night. EKG reviewed which shows NSR, rate 65, no significant st/t wave abnormality. Qt/Qtc wnl. Review of Systems Review of Systems: Yes all other systems are reviewed and are negative [facility] Medical History (Updated 03/07/23 @ 16:59 by ALEC Agustin) Routine medical exam Nocturnal hypoxia Joint inflammation of right hand and wrist Status post fall Adult general medical exam Screening for colon cancer Screening for prostate cancer Cough Schizophrenia, catatonic BPH (benign prostatic hyperplasia) Essential (primary) hypertension Diabetes mellitus Family History Mother Cancer Father Kidney agenesis Surgical History History of colonoscopy History of tooth extraction History of root canal procedure Social History Household Members: None Housing: Apartment Do you presently have visiting nurse or other home services: Yes Alcohol intake: former Comment: 1:1 Patient Tobacco Use Status: Never used Tobacco Smoked in Last 30 Days: No e-Cigarette/Vaping Use: Never Used Second Hand Smoke Exposure: No Use of substances other than those prescribed or required for medical reasons: No Currently Displaying Signs/Symptoms of Drug Intoxication Withdrawal: No Have you been hit, kicked, punched, or otherwise hurt by someone within the past year? If so, by whom?: No Do you feel safe in your current relationship?: No Current Relationship Is there a partner from a previous relationship who is making you feel unsafe now?: No Advance Directives: No Advance Directives Information Provided: No Healthcare Proxy: No Guardian: No Do you have thoughts of harming others: None Do you have a plan to hurt others: No Plan Recently lost weight without trying: No Nutrition Risks: No Nutritional Risk Poor oral hygiene: No service: No Current occupational status: employed Sexual orientation: Straight/Heterosexual Cognitive needs: No Hearing needs: No Vision needs: No Meds Allergies Allergy/AdvReac Type Severity Reaction Status Date / Time No Known Allergies [NKA] Allergy Unknown NONE Verified 12/21/22 09:41 Active Medications: Current Medications Acetaminophen (Acetaminophen 325 Mg Tablet) 650 mg PO Q6H PRN PRN Reason: Headache/Pain Mild Scale (1-3) Al Hydroxide/Mg Hydroxide (Magnesium Hydrox/Alum Hydrox 30 Ml Oral.Susp) 30 ml PO Q6H PRN PRN Reason: Heartburn/Nausea Clozapine (Clozapine 100 Mg Tablet) 300 mg PO BEDTIME [facility] Last Admin: 03/06/23 20:59 Dose: 300 mg Docusate Sodium (Docusate Sodium 100 Mg Capsule) 200 mg PO BID [facility] Last Admin: 03/07/23 08:26 Dose: 200 mg Hydroxyzine HCl (Hydroxyzine Hcl 25 Mg Tablet) 25 mg PO Q6H PRN PRN Reason: Anxiety [place] Carbonate ([place] Carbonate Er 300 Mg Tablet.Er) 600 mg PO BEDTIME [facility] Last Admin: 03/06/23 20:58 Dose: 600 mg Lorazepam (Lorazepam 1 Mg Tablet) 1 mg PO TID [facility] Last Admin: 03/07/23 15:36 Dose: 1 mg Magnesium Hydroxide (Milk Of Magnesia 30 Ml Oral.Susp) 30 ml PO DAILY PRN PRN Reason: Constipation Metformin HCl (Metformin Hcl Er 500 Mg Tab.Er.24h) 500 mg PO DAILY [facility] Last Admin: 03/07/23 08:26 Dose: 500 mg Omeprazole (Omeprazole 20 Mg Capsule.Dr) 20 mg PO DAILY@0630 [facility] Last Admin: 03/07/23 08:26 Dose: 20 mg Polyethylene Glycol (Polyethylene Glycol 3350 17 Gm Powd.Pack) 17 gm PO DAILY [facility] Last Admin: 03/07/23 08:27 Dose: 17 gm Senna (Sennosides 8.6 Mg Tablet) 17.2 mg PO BEDTIME [facility] Last Admin: 03/06/23 20:58 Dose: 17.2 mg Sertraline HCl (Sertraline Hcl 50 Mg Tablet) 150 mg PO DAILY [facility] Last Admin: 03/07/23 08:26 Dose: 150 mg Tamsulosin HCl (Tamsulosin Hcl 0.4 Mg Capsule) 0.4 mg PO BEDTIME [facility]RISTIN Last Admin: 03/06/23 20:58 Dose: 0.4 mg Trazodone HCl (Trazodone Hcl 50 Mg Tablet) 50 mg PO BEDTIME MRX1 PRN PRN Reason: Insomnia Home Medications Medication Instructions Recorded Confirmed Last Taken Type lancets 28 gauge (FreeStyle 01/04/23 01/04/23 Unknown History Lancets) tamsulosin 0.4 mg capsule 0.4 mg PO QPM 01/04/23 03/06/23 01/02/23 17:00 History Physical Exam Vital Signs and Narrative: Vital Signs: Last Vital Signs Temp 97.0 F 03/07/23 07:42 Pulse 83 03/07/23 07:42 Resp 16 03/07/23 07:42 BP 134/83 03/07/23 07:42 Pulse Ox 94 03/07/23 07:42 O2 Del Method Room Air 03/07/23 07:42 O2 Flow Rate 2 03/06/23 08:00 BMI result Body Mass Index 0.4 Constitutional - Awake and Alert, No apparent distress Eyes - PERRLA, EOMI Cardiovascular - S1S2, RRR, No edema Respiratory - Normal lung expansion, Normal respiratory effort, No respiratory distress, CTA bilaterally Extremities - no calf tenderness bilaterally, no swelling Skin - Warm/Dry Neurological - Alert & oriented x3 Psychological - flat affect Results Labs 03/05/23 11:05 03/05/23 11:05 Labs: Laboratory Results - last 24 hr 03/07/23 09:03 POC Glucose 96 Assessment and Plan (1) Routine medical exam: Status: Acute Plan 57-year-old male with history of hypertension, dth-xomkhar-aphunktzo type 2 diabetes, schizoaffective disorder, and depression with catatonia admitted to Psychiatry consult placed to hospitalist service for ECT evaluation. # schizoaffective disorder/depression with catatonia -plan per Psychiatry -VS are stable. EKG is without dysrhythmia or significant ST/T wave abnormality, QT/QTc normal. At this time, no medical contraindication exists that would preclude pt from undergoing ECT. Thank you for allowing me to participate in this consult. Signing off at this time. Please do not hesitate to call for further questions.
[2023-03-07 19:40] VITALS: BP 124/65; PULSE 67; RESP 14; TEMP 36.2; O2SAT 97
[2023-03-07] MEDS: cloZAPine 100 MG TABLET 300 MG PO (20:58)
[2023-03-07] MEDS: Lithium Carbonate ER 300 MG TABLET.ER 600 MG PO (20:58)
[2023-03-07] MEDS: Tamsulosin HCL 0.4 MG CAPSULE PO (20:59)
[2023-03-07] MEDS: Sennosides 8.6 MG TABLET 17.2 MG PO (21:00)
[2023-03-08] MEDS: Omeprazole 20 MG CAPSULE.DR PO (06:49)
[2023-03-08 07:49] VITALS: BP 126/67; PULSE 82; RESP 16; TEMP 36.4; O2SAT 93
[2023-03-08 07:53] LABS: Glucose, Whole Blood 124 mg/dL (60-115)
[2023-03-08] MEDS: Docusate Sodium 100 MG CAPSULE 200 MG PO ×2 (08:26→20:46)
[2023-03-08] MEDS: LORazepam 1 MG TABLET PO ×3 (08:26→20:48)
[2023-03-08] MEDS: polyethylene glycoL 3350 17 GM POWD.PACK PO (08:26)
[2023-03-08] MEDS: metFORMIN HCl ER 500 MG TAB.ER.24H PO (08:26)
[2023-03-08] MEDS: Sertraline HCL 50 MG TABLET 150 MG PO (08:26)
--- NOTE | 2023-03-08 14:02 | HO.PSYCHPN ---
Subjective Subjective Date of Service: 03/08/23 Reason For Visit: Psychosis Interim History: calm, cooperative. similar presentation as yesterday. awaiting ECT monday. per staff, blunted, depressed. some thought-blocking. cleared by hospitalist for ECT. slept about 8 hours. Mental Status Exam Mental Status Exam Narrative: Appearance: wearing hospital lilliam, fair eye contact, in NAD Behavior: cooperative Psychomotor: moderate retardation Speech: nml rate, decr amount, decr loudness, incr latency TP: linear, logical TC: no delusions or paranoia expressed Affect: constricted, hypo-intense, non-labile mood: depressed SI: none HI: none VH/AH: none Insight/judgment: fair x 2. Memory/cog: alert, oriented x 3. Diagnostics Vital Signs (24Hr): Vital Signs - 24 hr 03/07/23 19:40 03/08/23 07:49 Temperature 97.1 F 97.5 F Pulse Rate 67 82 Respiratory Rate 14 16 Blood Pressure 124/65 126/67 Pulse Oximetry 97 93 Oxygen Delivery Method Room Air Room Air BMI result Body Mass Index 0.4 Labs 03/05/23 11:05 03/05/23 11:05 Labs: Laboratory Results - last 48 hr 03/07/23 03/08/23 09:03 07:42 POC Glucose 96 124 H Imaging Radiology Impressions: ITS Impressions Chest X-Ray 03/05/23 11:16 IMPRESSION: Unremarkable examination. Head CT 03/05/23 11:42 IMPRESSION: No acute intracranial findings. Mild sphenoid sinus disease. Medications Medications Current Medications Acetaminophen (Acetaminophen 325 Mg Tablet) 650 mg PO Q6H PRN PRN Reason: Headache/Pain Mild Scale (1-3) Al Hydroxide/Mg Hydroxide (Magnesium Hydrox/Alum Hydrox 30 Ml Oral.Susp) 30 ml PO Q6H PRN PRN Reason: Heartburn/Nausea Clozapine (Clozapine 100 Mg Tablet) 300 mg PO BEDTIME [facility] Last Admin: 03/07/23 20:58 Dose: 300 mg Docusate Sodium (Docusate Sodium 100 Mg Capsule) 200 mg PO BID KRISTIN Last Admin: 03/08/23 08:26 Dose: 200 mg Hydroxyzine HCl (Hydroxyzine Hcl 25 Mg Tablet) 25 mg PO Q6H PRN PRN Reason: Anxiety [place] Carbonate ([place] Carbonate Er 300 Mg Tablet.Er) 600 mg PO BEDTIME KRISTIN Last Admin: 03/07/23 20:58 Dose: 600 mg Lorazepam (Lorazepam 1 Mg Tablet) 1 mg PO TID [facility] Last Admin: 03/08/23 08:26 Dose: 1 mg Magnesium Hydroxide (Milk Of Magnesia 30 Ml Oral.Susp) 30 ml PO DAILY PRN PRN Reason: Constipation Metformin HCl (Metformin Hcl Er 500 Mg Tab.Er.24h) 500 mg PO DAILY [facility] Last Admin: 03/08/23 08:26 Dose: 500 mg Omeprazole (Omeprazole 20 Mg Capsule.Dr) 20 mg PO DAILY@0630 [facility] Last Admin: 03/08/23 06:49 Dose: 20 mg Polyethylene Glycol (Polyethylene Glycol 3350 17 Gm Powd.Pack) 17 gm PO DAILY [facility] Last Admin: 03/08/23 08:26 Dose: 17 gm Senna (Sennosides 8.6 Mg Tablet) 17.2 mg PO BEDTIME [facility] Last Admin: 03/07/23 21:00 Dose: 17.2 mg Sertraline HCl (Sertraline Hcl 50 Mg Tablet) 150 mg PO DAILY [facility] Last Admin: 03/08/23 08:26 Dose: 150 mg Tamsulosin HCl (Tamsulosin Hcl 0.4 Mg Capsule) 0.4 mg PO BEDTIME [facility] Last Admin: 03/07/23 20:59 Dose: 0.4 mg Trazodone HCl (Trazodone Hcl 50 Mg Tablet) 50 mg PO BEDTIME MRX1 PRN PRN Reason: Insomnia Allergies Allergies Allergy/AdvReac Type Severity Reaction Status Date / Time No Known Allergies [NKA] Allergy Unknown NONE Verified 12/21/22 09:41 Assessment & Plan Assessment & Plan (1) Routine medical exam: Status: Acute Code(s): Z00.00 - Encounter for general adult medical examination without abnormal findings Assessment and Plan: 57-year-old male with history of hypertension, [id number] type 2 diabetes, schizoaffective disorder, and depression with catatonia admitted to Psychiatry consult placed to hospitalist service for ECT evaluation. # schizoaffective disorder/depression with catatonia -plan per Psychiatry -VS are stable. EKG is without dysrhythmia or significant ST/T wave abnormality, QT/QTc normal. At this time, no medical contraindication exists that would preclude pt from undergoing ECT. (2) Schizoaffective disorder, depressive type: Status: Acute Code(s): F25.1 - Schizoaffective disorder, depressive type Plan 03/07: continue outpt medications. obtain ECT clearance. begin inpatient ECT, to start monday. 03/08: medically cleared for ECT. scheduled for monday. continue current mgmt. Reason for continued inpatient stay Substantial Risk for: harm to self, inability to function and rapid decompensation Time Spent With Patient Time: Total time managing care of this patient today __25__ minutes.
[2023-03-08 20:33] VITALS: BP 136/73; PULSE 61; RESP 18; TEMP 36.7; O2SAT 97
[2023-03-08] MEDS: Lithium Carbonate ER 300 MG TABLET.ER 600 MG PO (20:47)
[2023-03-08] MEDS: cloZAPine 100 MG TABLET 300 MG PO (20:48)
[2023-03-08] MEDS: Sennosides 8.6 MG TABLET 17.2 MG PO (20:48)
[2023-03-08] MEDS: Tamsulosin HCL 0.4 MG CAPSULE PO (20:49)
[2023-03-09] MEDS: Omeprazole 20 MG CAPSULE.DR PO (06:37)
[2023-03-09 07:00] VITALS: BMI 31.5
[2023-03-09 07:35] VITALS: BP 123/64; PULSE 67; RESP 20; TEMP 36.3; O2SAT 94
[2023-03-09 08:26] LABS: Glucose, Whole Blood 98 mg/dL (60-115)
[2023-03-09] MEDS: polyethylene glycoL 3350 17 GM POWD.PACK PO (08:50)
[2023-03-09] MEDS: Sertraline HCL 50 MG TABLET 150 MG PO (08:51)
[2023-03-09] MEDS: Docusate Sodium 100 MG CAPSULE 200 MG PO ×2 (08:52→20:02)
[2023-03-09] MEDS: metFORMIN HCl ER 500 MG TAB.ER.24H PO (08:52)
[2023-03-09] MEDS: LORazepam 1 MG TABLET PO ×3 (08:52→20:03)
--- NOTE | 2023-03-09 14:18 | HO.PSYCHPN ---
Subjective Subjective Date of Service: 03/09/23 Reason For Visit: Psychosis Interim History: calm, cooperative. not terribly bad, no AH. no change in presentation. ECT tomorrow. per staff, dep 3 anx 2. eating well. denies SI/HI/AVH. dep/anx 6 eves. isolative. +meds. slept 8 hours. Mental Status Exam Mental Status Exam Narrative: Appearance: wearing street clothes, fair eye contact, in NAD Behavior: cooperative Psychomotor: moderate retardation Speech: nml rate, decr amount, decr loudness, incr latency TP: linear, logical TC: no delusions or paranoia expressed Affect: constricted, hypo-intense, non-labile mood: not terribly bad. SI: none expressed HI: none expressed VH/AH: no AH, no VH expressed Insight/judgment: fair x 2. Memory/cog: alert, oriented x 3. Diagnostics Vital Signs (24Hr): Vital Signs - 24 hr 03/08/23 20:33 03/09/23 07:35 Temperature 98.1 F 97.3 F Pulse Rate 61 67 Respiratory Rate 18 20 Blood Pressure 136/73 123/64 Pulse Oximetry 97 94 Oxygen Delivery Method Room Air Room Air BMI result Body Mass Index 0.4 Labs 03/05/23 11:05 03/05/23 11:05 Labs: Laboratory Results - last 48 hr 03/08/23 03/09/23 07:42 08:10 POC Glucose 124 H 98 Imaging Radiology Impressions: ITS Impressions Chest X-Ray 03/05/23 11:16 IMPRESSION: Unremarkable examination. Head CT 03/05/23 11:42 IMPRESSION: No acute intracranial findings. Mild sphenoid sinus disease. Medications Medications Current Medications Acetaminophen (Acetaminophen 325 Mg Tablet) 650 mg PO Q6H PRN PRN Reason: Headache/Pain Mild Scale (1-3) Al Hydroxide/Mg Hydroxide (Magnesium Hydrox/Alum Hydrox 30 Ml Oral.Susp) 30 ml PO Q6H PRN PRN Reason: Heartburn/Nausea Clozapine (Clozapine 100 Mg Tablet) 300 mg PO BEDTIME [facility] Last Admin: 03/08/23 20:48 Dose: 300 mg Docusate Sodium (Docusate Sodium 100 Mg Capsule) 200 mg PO BID KRISTIN Last Admin: 03/09/23 08:52 Dose: 200 mg Hydroxyzine HCl (Hydroxyzine Hcl 25 Mg Tablet) 25 mg PO Q6H PRN PRN Reason: Anxiety [place] Carbonate ([place] Carbonate Er 300 Mg Tablet.Er) 600 mg PO BEDTIME [facility] Last Admin: 03/08/23 20:47 Dose: 600 mg Lorazepam (Lorazepam 1 Mg Tablet) 1 mg PO TID [facility] Last Admin: 03/09/23 08:52 Dose: 1 mg Magnesium Hydroxide (Milk Of Magnesia 30 Ml Oral.Susp) 30 ml PO DAILY PRN PRN Reason: Constipation Metformin HCl (Metformin Hcl Er 500 Mg Tab.Er.24h) 500 mg PO DAILY [facility] Last Admin: 03/09/23 08:52 Dose: 500 mg Omeprazole (Omeprazole 20 Mg Capsule.Dr) 20 mg PO DAILY@0630 [facility] Last Admin: 03/09/23 06:37 Dose: 20 mg Polyethylene Glycol (Polyethylene Glycol 3350 17 Gm Powd.Pack) 17 gm PO DAILY [facility] Last Admin: 03/09/23 08:50 Dose: 17 gm Senna (Sennosides 8.6 Mg Tablet) 17.2 mg PO BEDTIME [facility] Last Admin: 03/08/23 20:48 Dose: 17.2 mg Sertraline HCl (Sertraline Hcl 50 Mg Tablet) 150 mg PO DAILY [facility] Last Admin: 03/09/23 08:51 Dose: 150 mg Tamsulosin HCl (Tamsulosin Hcl 0.4 Mg Capsule) 0.4 mg PO BEDTIME [facility] Last Admin: 03/08/23 20:49 Dose: 0.4 mg Trazodone HCl (Trazodone Hcl 50 Mg Tablet) 50 mg PO BEDTIME MRX1 PRN PRN Reason: Insomnia Allergies Allergies Allergy/AdvReac Type Severity Reaction Status Date / Time No Known Allergies [NKA] Allergy Unknown NONE Verified 12/21/22 09:41 Assessment & Plan Assessment & Plan (1) Routine medical exam: Status: Acute Code(s): Z00.00 - Encounter for general adult medical examination without abnormal findings Assessment and Plan: 57-year-old male with history of hypertension, [id number] type 2 diabetes, schizoaffective disorder, and depression with catatonia admitted to Psychiatry consult placed to hospitalist service for ECT evaluation. # schizoaffective disorder/depression with catatonia -plan per Psychiatry -VS are stable. EKG is without dysrhythmia or significant ST/T wave abnormality, QT/QTc normal. At this time, no medical contraindication exists that would preclude pt from undergoing ECT. (2) Schizoaffective disorder, depressive type: Status: Acute Code(s): F25.1 - Schizoaffective disorder, depressive type Plan 03/07: continue outpt medications. obtain ECT clearance. begin inpatient ECT, to start monday. 03/08: medically cleared for ECT. scheduled for monday. continue current mgmt. 03/09: ECT tomorrow. remains slowed and depressed, non-psychotic. hold ativan tonight. continue plan of care otherwise. Reason for continued inpatient stay Substantial Risk for: inability to function and rapid decompensation Time Spent With Patient Time: Total time managing care of this patient today _25___ minutes.
[2023-03-09] MEDS: Lithium Carbonate ER 300 MG TABLET.ER 600 MG PO (20:03)
[2023-03-09] MEDS: traZODone HCL 50 MG TABLET PO (20:03)
[2023-03-09] MEDS: Tamsulosin HCL 0.4 MG CAPSULE PO (20:03)
[2023-03-09] MEDS: cloZAPine 100 MG TABLET 300 MG PO (20:03)
[2023-03-09] MEDS: Sennosides 8.6 MG TABLET 17.2 MG PO (20:03)
[2023-03-09 20:33] VITALS: BP 126/58; PULSE 66; RESP 18; TEMP 36.8; O2SAT 95
[2023-03-10] VITALS (9 sets, daily range): BP systolic 122–173; BP diastolic 56–116; PULSE 70–90; RESP 14–158; TEMP 36.2–37.1; O2SAT 90–99
[2023-03-10 07:43] LABS: Glucose, Whole Blood 100 mg/dL (60-115)
[2023-03-10] MEDS: metFORMIN HCl ER 500 MG TAB.ER.24H PO (08:52)
[2023-03-10] MEDS: Sertraline HCL 50 MG TABLET 150 MG PO (08:52)
[2023-03-10] MEDS: Docusate Sodium 100 MG CAPSULE 200 MG PO ×2 (08:52→21:30)
[2023-03-10 12:59] LABS: Glucose, Whole Blood 77 mg/dL (60-115)
--- NOTE | 2023-03-10 13:07 | MHC.SHP ---
Pre-Procedural Eval Section A Date of Service: 03/10/23 The patient is an INPATIENT: Yes Changes since office visit: No Cold of Flu in the past 2 weeks, No New Medical Problems, No Changes in Medication and No Patient answered all questions The History & Physical has been completed within 30 days and I have reviewed it.: Yes Section B Chief Complaint: Psychosis Allergies: Allergies Allergy/AdvReac Type Severity Reaction Status Date / Time No Known Allergies [NKA] Allergy Unknown NONE Verified 12/21/22 09:41 Plan I have reviewed the history and physical and performed a pertinent physical examination on my patient. No changes have occurred unless specified. Time Spent With Patient Time: Total time managing care of this patient today ____ minutes.
--- NOTE | 2023-03-10 13:46 | P.PNPSI_ITS ---
Subjective Subjective Date of Service: 03/10/23 Reason For Visit: Psychosis Interim History: no change in presentation. awaiting ECT. per staff, no issues overnight. Mental Status Exam Mental Status Exam Narrative: Appearance: wearing street clothes, fair eye contact, in NAD Behavior: cooperative Psychomotor: moderate retardation Speech: nml rate, decr amount, decr loudness, incr latency TP: linear, logical TC: no delusions or paranoia expressed Affect: constricted, hypo-intense, non-labile mood: depressed SI: none expressed HI: none expressed VH/AH: no AVH expressed Insight/judgment: fair x 2. Memory/cog: alert, oriented x 3. Diagnostics Vital Signs (24Hr): Vital Signs - 24 hr 03/09/23 20:33 03/10/23 08:05 03/10/23 12:50 Temperature 98.3 F 97.3 F 97.1 F Pulse Rate 66 76 70 Respiratory Rate 18 14 18 Blood Pressure 126/58 L 127/68 148/86 H Pulse Oximetry 95 90 L 98 Oxygen Delivery Method Room Air Room Air Room Air BMI result Body Mass Index 31.5 Labs 03/05/23 11:05 03/05/23 11:05 Labs: Laboratory Results - last 48 hr 03/09/23 03/10/23 03/10/23 08:10 07:37 12:55 POC Glucose 98 100 77 Imaging Radiology Impressions: ITS Impressions Chest X-Ray 03/05/23 11:16 IMPRESSION: Unremarkable examination. Head CT 03/05/23 11:42 IMPRESSION: No acute intracranial findings. Mild sphenoid sinus disease. Medications Medications Current Medications Acetaminophen (Acetaminophen 325 Mg Tablet) 650 mg PO Q6H PRN PRN Reason: Headache/Pain Mild Scale (1-3) Al Hydroxide/Mg Hydroxide (Magnesium Hydrox/Alum Hydrox 30 Ml Oral.Susp) 30 ml PO Q6H PRN PRN Reason: Heartburn/Nausea Clozapine (Clozapine 100 Mg Tablet) 300 mg PO BEDTIME [facility] Last Admin: 03/09/23 20:03 Dose: 300 mg Docusate Sodium (Docusate Sodium 100 Mg Capsule) 200 mg PO BID KRISTIN Last Admin: 03/10/23 08:52 Dose: 200 mg Hydroxyzine HCl (Hydroxyzine Hcl 25 Mg Tablet) 25 mg PO Q6H PRN PRN Reason: Anxiety [place] Carbonate ([place] Carbonate Er 300 Mg Tablet.Er) 600 mg PO BEDTIME [facility] Last Admin: 03/09/23 20:03 Dose: 600 mg Lorazepam (Lorazepam 1 Mg Tablet) 1 mg PO TID [facility] Last Admin: 03/10/23 08:57 Dose: Not Given Magnesium Hydroxide (Milk Of Magnesia 30 Ml Oral.Susp) 30 ml PO DAILY PRN PRN Reason: Constipation Metformin HCl (Metformin Hcl Er 500 Mg Tab.Er.24h) 500 mg PO DAILY [facility] Last Admin: 03/10/23 08:52 Dose: 500 mg Omeprazole (Omeprazole 20 Mg Capsule.Dr) 20 mg PO DAILY@0630 [facility] Last Admin: 03/10/23 05:40 Dose: Not Given Polyethylene Glycol (Polyethylene Glycol 3350 17 Gm Powd.Pack) 17 gm PO DAILY [facility] Last Admin: 03/10/23 08:58 Dose: Not Given Senna (Sennosides 8.6 Mg Tablet) 17.2 mg PO BEDTIME [facility] Last Admin: 03/09/23 20:03 Dose: 17.2 mg Sertraline HCl (Sertraline Hcl 50 Mg Tablet) 150 mg PO DAILY [facility] Last Admin: 03/10/23 08:52 Dose: 150 mg Tamsulosin HCl (Tamsulosin Hcl 0.4 Mg Capsule) 0.4 mg PO BEDTIME [facility] Last Admin: 03/09/23 20:03 Dose: 0.4 mg Trazodone HCl (Trazodone Hcl 50 Mg Tablet) 50 mg PO BEDTIME MRX1 PRN PRN Reason: Insomnia Last Admin: 03/09/23 20:03 Dose: 50 mg Allergies Allergies Allergy/AdvReac Type Severity Reaction Status Date / Time No Known Allergies [NKA] Allergy Unknown NONE Verified 12/21/22 09:41 Assessment & Plan Assessment & Plan (1) Routine medical exam: Status: Acute Code(s): Z00.00 - Encounter for general adult medical examination without abnormal findings Assessment and Plan: 57-year-old male with history of hypertension, [id number] type 2 diabetes, schizoaffective disorder, and depression with catatonia admitted to Psychiatry consult placed to hospitalist service for ECT evaluation. # schizoaffective disorder/depression with catatonia -plan per Psychiatry -VS are stable. EKG is without dysrhythmia or significant ST/T wave abnormality, QT/QTc normal. At this time, no medical contraindication exists that would preclude pt from undergoing ECT. (2) Schizoaffective disorder, depressive type: Status: Acute Code(s): F25.1 - Schizoaffective disorder, depressive type Plan 03/07: continue outpt medications. obtain ECT clearance. begin inpatient ECT, to start monday. 03/08: medically cleared for ECT. scheduled for monday. continue current mgmt. 03/09: ECT tomorrow. remains slowed and depressed, non-psychotic. hold ativan tonight. continue plan of care otherwise. 03/10: awaiting anoon ECT. no change in presentation. continue current mgmt. Reason for continued inpatient stay Substantial Risk for: harm to self, inability to function and rapid decompensation Time Spent With Patient Time: Total time managing care of this patient today ____ minutes.
--- NOTE | 2023-03-10 13:59 | HO.ECTPROC ---
ECT Procedure Note Diagnosis/Treatment Date of Service: 03/10/23 Diagnosis: Catatonia and Schizoaffective Disorder Previous ECT Date: 03/06/23 Current Treatment Number: 2 Treatment: Series Interval Clinical Notes: The patient was admitted after the last ECT for catatonia. No side effects with previous procedure. ECT done bifrontal 0.5 at 100%, he had an observed seizure for more than 20s and EEG showed seizure activity for 41s but the computer didn't registered. Woke up without problems. Time: Total time managing care of this patient today ____ minutes. ECT Settings Device: THYMATRON DGx Electrode Placement: Bifrontal Program/Pulse Width: 0.50 Energy Percent: 100 Seizure Duration By EEG (in seconds): 0 (41 s of seizure activity not recorded) By Motor Observation (in seconds): 21 Medications Administration General Anesthetic: Etomidate (18) Muscle Relaxant: Succinylcholine (120) Ancillary Medications Analgesics: Torodol - Pre ECT Anti-emetics: Zofran - Pre ECT Miscillaneous Medications: Other (ativan 1 mg IVP after procedure) Airway Management Airway Management: Bag Mask Ventilation Treatment Recommendations No Changes Recommended: No change Pt Tolerated Procedure w/o Issue: Yes
--- NOTE | 2023-03-10 14:01 | HO.ANESPROP2 ---
HPI - Anesthesia Eval Consult details Narrative: 57 yo M presenting for ECT PMFSH Active Problems Active Problems: All Active Problems (Updated 03/07/23 @ 16:59 by ALEC Agustin) Routine medical exam (Acute) Schizoaffective disorder, depressive type (Acute) Mild sleep apnea (Acute) Benign prostate hyperplasia (Acute) Essential hypertension (Acute) Right hip pain (Acute) Essential (primary) hypertension (Acute) Diabetes mellitus (Acute) Past Medical History Medical History (Updated 03/07/23 @ 16:59 by ALEC Agustin) Routine medical exam Nocturnal hypoxia Joint inflammation of right hand and wrist Status post fall Adult general medical exam Screening for colon cancer Screening for prostate cancer Cough Schizophrenia, catatonic BPH (benign prostatic hyperplasia) Essential (primary) hypertension Diabetes mellitus Family History Family History Mother Cancer Father Kidney agenesis Family history of problems with anesthesia: No Surgical History Surgical History History of colonoscopy History of tooth extraction History of root canal procedure History of Problems with Anesthesia: No Social History Social History Household Members: None Housing: Apartment Do you presently have visiting nurse or other home services: Yes Alcohol intake: former Comment: 1:1 Patient Tobacco Use Status: Never used Tobacco Smoked in Last 30 Days: No e-Cigarette/Vaping Use: Never Used Second Hand Smoke Exposure: No Use of substances other than those prescribed or required for medical reasons: No Currently Displaying Signs/Symptoms of Drug Intoxication Withdrawal: No Have you been hit, kicked, punched, or otherwise hurt by someone within the past year? If so, by whom?: No Do you feel safe in your current relationship?: No Current Relationship Is there a partner from a previous relationship who is making you feel unsafe now?: No Advance Directives: No Advance Directives Information Provided: No Healthcare Proxy: No Guardian: No Do you have thoughts of harming others: None Do you have a plan to hurt others: No Plan Recently lost weight without trying: No Nutrition Risks: No Nutritional Risk Poor oral hygiene: No service: No Current occupational status: employed Sexual orientation: Straight/Heterosexual Cognitive needs: No Hearing needs: No Vision needs: No Meds Allergies Allergy/AdvReac Type Severity Reaction Status Date / Time No Known Allergies [NKA] Allergy Unknown NONE Verified 12/21/22 09:41 Active Medications: Current Medications Acetaminophen (Acetaminophen 325 Mg Tablet) 650 mg PO Q6H PRN PRN Reason: Headache/Pain Mild Scale (1-3) Al Hydroxide/Mg Hydroxide (Magnesium Hydrox/Alum Hydrox 30 Ml Oral.Susp) 30 ml PO Q6H PRN PRN Reason: Heartburn/Nausea Clozapine (Clozapine 100 Mg Tablet) 300 mg PO BEDTIME [facility] Last Admin: 03/09/23 20:03 Dose: 300 mg Docusate Sodium (Docusate Sodium 100 Mg Capsule) 200 mg PO BID [facility] Last Admin: 03/10/23 08:52 Dose: 200 mg Hydroxyzine HCl (Hydroxyzine Hcl 25 Mg Tablet) 25 mg PO Q6H PRN PRN Reason: Anxiety [place] Carbonate ([place] Carbonate Er 300 Mg Tablet.Er) 600 mg PO BEDTIME [facility] Last Admin: 03/09/23 20:03 Dose: 600 mg Lorazepam (Lorazepam 1 Mg Tablet) 1 mg PO TID [facility] Last Admin: 03/10/23 08:57 Dose: Not Given Magnesium Hydroxide (Milk Of Magnesia 30 Ml Oral.Susp) 30 ml PO DAILY PRN PRN Reason: Constipation Metformin HCl (Metformin Hcl Er 500 Mg Tab.Er.24h) 500 mg PO DAILY [facility] Last Admin: 03/10/23 08:52 Dose: 500 mg Omeprazole (Omeprazole 20 Mg Capsule.Dr) 20 mg PO DAILY@0630 [facility] Last Admin: 03/10/23 05:40 Dose: Not Given Polyethylene Glycol (Polyethylene Glycol 3350 17 Gm Powd.Pack) 17 gm PO DAILY [facility] Last Admin: 03/10/23 08:58 Dose: Not Given Senna (Sennosides 8.6 Mg Tablet) 17.2 mg PO BEDTIME [facility] Last Admin: 03/09/23 20:03 Dose: 17.2 mg Sertraline HCl (Sertraline Hcl 50 Mg Tablet) 150 mg PO DAILY [facility] Last Admin: 03/10/23 08:52 Dose: 150 mg Tamsulosin HCl (Tamsulosin Hcl 0.4 Mg Capsule) 0.4 mg PO BEDTIME [facility] Last Admin: 03/09/23 20:03 Dose: 0.4 mg Trazodone HCl (Trazodone Hcl 50 Mg Tablet) 50 mg PO BEDTIME MRX1 PRN PRN Reason: Insomnia Last Admin: 03/09/23 20:03 Dose: 50 mg Home Medications Medication Instructions Recorded Confirmed Last Taken Type lancets 28 gauge (FreeStyle 01/04/23 01/04/23 Unknown History Lancets) tamsulosin 0.4 mg capsule 0.4 mg PO QPM 01/04/23 03/06/23 01/02/23 17:00 History Exam Exam Date and Time: March 10, 2023 1350 Height,Weight and Vital Signs: Height 5 ft 10 in Weight 99.7 kg Last Vital Signs Temp 97.1 F 03/10/23 12:50 Pulse 70 03/10/23 12:50 Resp 18 03/10/23 12:50 BP 148/86 H 03/10/23 12:50 Pulse Ox 98 03/10/23 12:50 O2 Del Method Room Air 03/10/23 12:50 O2 Flow Rate 2 03/06/23 08:00 Pertinent Lab Results Pertinent Lab Results: Laboratory Tests 03/05/23 03/05/23 03/06/23 11:05 14:01 05:07 WBC 6.7 RBC 4.73 Hgb 13.5 L Hct 42.3 MCV 89.4 MCH 28.5 MCHC 31.9 RDW 13.1 Plt Count 149 L MPV 11.1 Immature Gran % (Auto) 0.6 H Neut % (Auto) 74.0 H Lymph % (Auto) 18.4 L Hall % (Auto) 7.0 Eos % (Auto) 0.0 Baso % (Auto) 0.0 Lymph # (Auto) 1.2 Hall # (Auto) 0.5 Eos # (Auto) 0.0 Baso # (Auto) 0.0 Abs Immat Gran (auto) 0.04 H Absolute Neuts (auto) 4.9 Absolute Nucleated RBC 0.000 Nucleated RBC % (auto) 0.0 Sodium 143 Potassium 4.3 Chloride 109 H Carbon Dioxide 27 Anion Gap 11 L BUN 17 H Creatinine 1.42 H Estim Creat Clear Calc 79.0 Estimated GFR 51 POC Glucose Random Glucose 107 Calcium 9.3 Total Bilirubin 0.6 AST 10 ALT 7 Alkaline Phosphatase 60 Total Protein 7.3 Albumin 4.4 Urine Color Yellow Urine Appearance Clear Urine pH 6.5 Ur Specific Chloe 1.010 Urine Protein Negative Urine Glucose (UA) Negative Urine Ketones Negative Urine Blood Negative Urine Nitrite Negative Ur Leukocyte Esterase Negative Salicylates < 5.0 L Urine Opiates Screen Not Detected Urine Fentanyl Screen Not Detected Acetaminophen < 3 Ur Barbiturates Screen Not Detected Ur Phencyclidine Scrn Not Detected Ur Amphetamines Screen Not Detected U Benzodiazepines Scrn Not Detected [place] 0.65 Urine Cocaine Screen Not Detected U Marijuana (THC) Screen Not Detected Ethyl Alcohol < 10 COVID-19 ([facility]) Negative COVID-19 Clin Com See Note 03/06/23 03/06/23 03/07/23 07:24 10:08 09:03 WBC RBC Hgb Hct MCV MCH MCHC RDW Plt Count MPV Immature Gran % (Auto) Neut % (Auto) Lymph % (Auto) Hall % (Auto) Eos % (Auto) Baso % (Auto) Lymph # (Auto) Hall # (Auto) Eos # (Auto) Baso # (Auto) Abs Immat Gran (auto) Absolute Neuts (auto) Absolute Nucleated RBC Nucleated RBC % (auto) Sodium Potassium Chloride Carbon Dioxide Anion Gap BUN Creatinine Estim Creat Clear Calc Estimated GFR POC Glucose 97 97 96 Random Glucose Calcium Total Bilirubin AST ALT Alkaline Phosphatase Total Protein Albumin Urine Color Urine Appearance Urine pH Ur Specific Chloe Urine Protein Urine Glucose (UA) Urine Ketones Urine Blood Urine Nitrite Ur Leukocyte Esterase Salicylates Urine Opiates Screen Urine Fentanyl Screen Acetaminophen Ur Barbiturates Screen Ur Phencyclidine Scrn Ur Amphetamines Screen U Benzodiazepines Scrn [place] Urine Cocaine Screen U Marijuana (THC) Screen Ethyl Alcohol COVID-19 ([facility]) COVID-19 Clin Com 03/08/23 03/09/23 03/10/23 07:42 08:10 07:37 WBC RBC Hgb Hct MCV MCH MCHC RDW Plt Count MPV Immature Gran % (Auto) Neut % (Auto) Lymph % (Auto) Hall % (Auto) Eos % (Auto) Baso % (Auto) Lymph # (Auto) Hall # (Auto) Eos # (Auto) Baso # (Auto) Abs Immat Gran (auto) Absolute Neuts (auto) Absolute Nucleated RBC Nucleated RBC % (auto) Sodium Potassium Chloride Carbon Dioxide Anion Gap BUN Creatinine Estim Creat Clear Calc Estimated GFR POC Glucose 124 H 98 100 Random Glucose Calcium Total Bilirubin AST ALT Alkaline Phosphatase Total Protein Albumin Urine Color Urine Appearance Urine pH Ur Specific Chloe Urine Protein Urine Glucose (UA) Urine Ketones Urine Blood Urine Nitrite Ur Leukocyte Esterase Salicylates Urine Opiates Screen Urine Fentanyl Screen Acetaminophen Ur Barbiturates Screen Ur Phencyclidine Scrn Ur Amphetamines Screen U Benzodiazepines Scrn [place] Urine Cocaine Screen U Marijuana (THC) Screen Ethyl Alcohol COVID-19 ([facility]) COVID-19 Clin Com 03/10/23 12:55 WBC RBC Hgb Hct MCV MCH MCHC RDW Plt Count MPV Immature Gran % (Auto) Neut % (Auto) Lymph % (Auto) Hall % (Auto) Eos % (Auto) Baso % (Auto) Lymph # (Auto) Hall # (Auto) Eos # (Auto) Baso # (Auto) Abs Immat Gran (auto) Absolute Neuts (auto) Absolute Nucleated RBC Nucleated RBC % (auto) Sodium Potassium Chloride Carbon Dioxide Anion Gap BUN Creatinine Estim Creat Clear Calc Estimated GFR POC Glucose 77 Random Glucose Calcium Total Bilirubin AST ALT Alkaline Phosphatase Total Protein Albumin Urine Color Urine Appearance Urine pH Ur Specific Chloe Urine Protein Urine Glucose (UA) Urine Ketones Urine Blood Urine Nitrite Ur Leukocyte Esterase Salicylates Urine Opiates Screen Urine Fentanyl Screen Acetaminophen Ur Barbiturates Screen Ur Phencyclidine Scrn Ur Amphetamines Screen U Benzodiazepines Scrn [place] Urine Cocaine Screen U Marijuana (THC) Screen Ethyl Alcohol COVID-19 ([facility]) COVID-19 Clin Com Airway Mallampati Class: III TM Dist: <=3cm Neck ROM: Full Loose/Missing/Broken Teeth: Yes (poor dentition) Heart: S1S2 Lungs: CTAB Assessment and Plan Assessment Anesthesia Assessment: Anesthesia Plan Discussed and Chart Reviewed Final Anesthetic Review Family History of Problems with Anesthesia: No History of Problems with Anesthesia: No NPO: Yes ASA Class: III Final Preanesthetic Review: No Changes in Pt Med Stat, Meds/Allgs Chart Reviewed, Consent Obtained/Reviewed and Anes Risks/Benef Reviewed Patient Risk: Intermediate Procedure Risk: Low Anesthetic Plan Anesthetic Plan: GA and Agree w/ Assess. and Plan Disposition: Standard PACU
[2023-03-10] MEDS: LORazepam 2 MG/ML VIAL 1 MG IVPUSH (14:21)
--- NOTE | 2023-03-10 15:26 | PC.NURSE ---
Benjamin was picked up from ECT this afternoon by this RN and returned to the unit at 1500 via wheelchair. He denies headache and nausea. His vitals were stable (see documentation). He reported feeling somewhat unsteady while walking. He was incontinent of urine x1 and showered with supervision d/t unsteadiness upon return to the unit. He reported being hungry and sat in the day room listening to [employer] while waiting for his meal tray to arrive.
[2023-03-10] MEDS: Sennosides 8.6 MG TABLET 17.2 MG PO (21:27)
[2023-03-10] MEDS: Lithium Carbonate ER 300 MG TABLET.ER 600 MG PO (21:28)
[2023-03-10] MEDS: cloZAPine 100 MG TABLET 300 MG PO (21:29)
[2023-03-10] MEDS: Tamsulosin HCL 0.4 MG CAPSULE PO (21:30)
[2023-03-10] MEDS: LORazepam 1 MG TABLET PO (21:30)
[2023-03-11 06:00] VITALS: BP 121/61; PULSE 71; TEMP 36.5; O2SAT 96
[2023-03-11] MEDS: Omeprazole 20 MG CAPSULE.DR PO (06:32)
[2023-03-11 08:28] VITALS: BP 121/61; PULSE 71; TEMP 36.5; O2SAT 96
[2023-03-11] MEDS: metFORMIN HCl ER 500 MG TAB.ER.24H PO (08:59)
[2023-03-11] MEDS: Docusate Sodium 100 MG CAPSULE 200 MG PO ×2 (08:59→20:37)
[2023-03-11] MEDS: Sertraline HCL 50 MG TABLET 150 MG PO (09:00)
[2023-03-11] MEDS: LORazepam 1 MG TABLET PO ×3 (09:01→20:38)
[2023-03-11] MEDS: polyethylene glycoL 3350 17 GM POWD.PACK PO (09:02)
--- NOTE | 2023-03-11 17:18 | HO.PSYCHPN ---
Subjective Subjective Date of Service: 03/11/23 Reason For Visit: Psychosis Interim History: Patient seen. He is tolerating ECT. He denies complications. He is feeling his mood is improving. Otherwise no change in presentation. per staff, no issues overnight. Review of Systems Review of Systems Yes all other systems are reviewed and are negative Constitutional: Reports no additional constitutional complaints, Denies chills, Denies fever(s) and Denies night sweats Eyes: Reports no additional eye complaints, Denies blurry vision, Denies change in vision, Denies diplopia, Denies eye discharge, Denies loss of vision and Denies eye pain Denies dizziness Cardiovascular: Reports no additional cardiovascular complaints, Denies chest pain, Denies lightheadedness, Denies Loss of Consciousness and Denies dyspnea Respiratory: Reports no additional respiratory complaints and Denies dyspnea Gastrointestinal: Reports no additional gastrointestinal complaints, Denies abdominal pain, Denies melena, Denies hematochezia, Denies change in bowel habits and Denies change in stool character Genitourinary: Reports no additional male genitourinary complaints, Denies hematuria, Denies oliguria, Denies difficulty urinating, Denies dysuria, Denies urinary frequency, Denies urinary hesitancy, Denies urinary incontinence and Denies urinary urgency Musculoskeletal: Reports no additional musculoskeletal complaints, Denies numbness and Denies tingling Denies dizziness, Denies loss of vision, Denies numbness and Denies tingling Psychiatric: Reports no additional psychiatric complaints Endocrine: Reports no additional endocrine complaints Hematologic/Lymphatic: Reports no additional hematologic/lymphatic complaints Allergic/Immunologic: Reports no additional allergic/immunologic complaints Mental Status Exam Mental Status Exam Narrative: Appearance: wearing street clothes, fair eye contact, in NAD Behavior: cooperative Psychomotor: moderate retardation Speech: nml rate, decr amount, decr loudness, incr latency TP: linear, logical TC: no delusions or paranoia expressed Affect: constricted, hypo-intense, non-labile mood: depressed SI: none expressed HI: none expressed VH/AH: no AVH expressed Insight/judgment: fair x 2. Memory/cog: alert, oriented x 3. Diagnostics Vital Signs (24Hr): Vital Signs - 24 hr 03/10/23 19:15 03/11/23 06:00 03/11/23 08:28 Temperature 98.3 F 97.7 F 97.7 F Pulse Rate 88 71 71 Respiratory Rate 14 Blood Pressure 122/56 L 121/61 121/61 Pulse Oximetry 98 96 96 Oxygen Delivery Method Room Air Room Air Room Air BMI result Body Mass Index 31.5 Labs 03/05/23 11:05 03/05/23 11:05 Labs: Laboratory Results - last 48 hr 03/10/23 03/10/23 07:37 12:55 POC Glucose 100 77 Imaging Radiology Impressions: ITS Impressions Chest X-Ray 03/05/23 11:16 IMPRESSION: Unremarkable examination. Head CT 03/05/23 11:42 IMPRESSION: No acute intracranial findings. Mild sphenoid sinus disease. Medications Medications Current Medications Acetaminophen (Acetaminophen 325 Mg Tablet) 650 mg PO Q6H PRN PRN Reason: Headache/Pain Mild Scale (1-3) Al Hydroxide/Mg Hydroxide (Magnesium Hydrox/Alum Hydrox 30 Ml Oral.Susp) 30 ml PO Q6H PRN PRN Reason: Heartburn/Nausea Clozapine (Clozapine 100 Mg Tablet) 300 mg PO BEDTIME [facility] Last Admin: 03/10/23 21:29 Dose: 300 mg Docusate Sodium (Docusate Sodium 100 Mg Capsule) 200 mg PO BID [facility] Last Admin: 03/11/23 08:59 Dose: 200 mg Hydroxyzine HCl (Hydroxyzine Hcl 25 Mg Tablet) 25 mg PO Q6H PRN PRN Reason: Anxiety [place] Carbonate ([place] Carbonate Er 300 Mg Tablet.Er) 600 mg PO BEDTIME [facility] Last Admin: 03/10/23 21:28 Dose: 600 mg Lorazepam (Lorazepam 1 Mg Tablet) 1 mg PO TID [facility] Last Admin: 03/11/23 14:49 Dose: 1 mg Magnesium Hydroxide (Milk Of Magnesia 30 Ml Oral.Susp) 30 ml PO DAILY PRN PRN Reason: Constipation Metformin HCl (Metformin Hcl Er 500 Mg Tab.Er.24h) 500 mg PO DAILY [facility] Last Admin: 03/11/23 08:59 Dose: 500 mg Omeprazole (Omeprazole 20 Mg Capsule.Dr) 20 mg PO DAILY@0630 [facility] Last Admin: 03/11/23 06:32 Dose: 20 mg Polyethylene Glycol (Polyethylene Glycol 3350 17 Gm Powd.Pack) 17 gm PO DAILY [facility] Last Admin: 03/11/23 09:02 Dose: 17 gm Senna (Sennosides 8.6 Mg Tablet) 17.2 mg PO BEDTIME [facility] Last Admin: 03/10/23 21:27 Dose: 17.2 mg Sertraline HCl (Sertraline Hcl 50 Mg Tablet) 150 mg PO DAILY [facility] Last Admin: 03/11/23 09:00 Dose: 150 mg Tamsulosin HCl (Tamsulosin Hcl 0.4 Mg Capsule) 0.4 mg PO BEDTIME [facility] Last Admin: 03/10/23 21:30 Dose: 0.4 mg Trazodone HCl (Trazodone Hcl 50 Mg Tablet) 50 mg PO BEDTIME MRX1 PRN PRN Reason: Insomnia Last Admin: 03/09/23 20:03 Dose: 50 mg Allergies Allergies Allergy/AdvReac Type Severity Reaction Status Date / Time No Known Allergies [NKA] Allergy Unknown NONE Verified 12/21/22 09:41 Assessment & Plan Assessment & Plan (1) Routine medical exam: Status: Acute Code(s): Z00.00 - Encounter for general adult medical examination without abnormal findings Assessment and Plan: 57-year-old male with history of hypertension, [id number] type 2 diabetes, schizoaffective disorder, and depression with catatonia admitted to Psychiatry consult placed to hospitalist service for ECT evaluation. # schizoaffective disorder/depression with catatonia -plan per Psychiatry -VS are stable. EKG is without dysrhythmia or significant ST/T wave abnormality, QT/QTc normal. At this time, no medical contraindication exists that would preclude pt from undergoing ECT. (2) Schizoaffective disorder, depressive type: Status: Acute Code(s): F25.1 - Schizoaffective disorder, depressive type Plan 03/07: continue outpt medications. obtain ECT clearance. begin inpatient ECT, to start monday. 03/08: medically cleared for ECT. scheduled for monday. continue current mgmt. 03/09: ECT tomorrow. remains slowed and depressed, non-psychotic. hold ativan tonight. continue plan of care otherwise. 03/10: awaiting anoon ECT. no change in presentation. continue current mgmt. 03/11: Continue current management and treatment plan. Reason for continued inpatient stay Substantial Risk for: inability to function and rapid decompensation Time Spent With Patient Time: Total time managing care of this patient today ____ minutes.
[2023-03-11 19:45] VITALS: BP 120/60; PULSE 77; RESP 16; TEMP 36.6; O2SAT 99
[2023-03-11] MEDS: Lithium Carbonate ER 300 MG TABLET.ER 600 MG PO (20:37)
[2023-03-11] MEDS: Tamsulosin HCL 0.4 MG CAPSULE PO (20:37)
[2023-03-11] MEDS: cloZAPine 100 MG TABLET 300 MG PO (20:37)
[2023-03-11] MEDS: Sennosides 8.6 MG TABLET 17.2 MG PO (20:37)
[2023-03-12 06:00] VITALS: BP 133/62; PULSE 62; RESP 18; TEMP 36.3; O2SAT 96
[2023-03-12] MEDS: Omeprazole 20 MG CAPSULE.DR PO (06:22)
[2023-03-12 07:55] VITALS: BP 133/62; PULSE 62; RESP 18; TEMP 36.3; O2SAT 96
[2023-03-12 07:59] LABS: Glucose, Whole Blood 120 mg/dL (60-115)
[2023-03-12] MEDS: Docusate Sodium 100 MG CAPSULE 200 MG PO ×2 (08:02→21:08)
[2023-03-12] MEDS: metFORMIN HCl ER 500 MG TAB.ER.24H PO (08:02)
[2023-03-12] MEDS: Sertraline HCL 50 MG TABLET 150 MG PO (08:02)
[2023-03-12] MEDS: LORazepam 1 MG TABLET PO ×3 (08:02→21:07)
[2023-03-12] MEDS: polyethylene glycoL 3350 17 GM POWD.PACK PO (08:02)
[2023-03-12 08:44] LABS: Neut%MD 68.7 %; Neutrophils Absolute Auto 4.4 x10*3/uL (2.0-8.3); WBCANC 6.4 X10*3/uL
[2023-03-12 08:56] LABS: Creatinine Clr Calc Pharmacy 74.7; Estimated Glomerular Filt Rate 59
--- NOTE | 2023-03-12 14:27 | PC.NURSE ---
Pt had a visit with his father who asked to speak with this RN. Father stated I don't want him getting any more shock treatments. He had them 10 years ago and he ended up in the ICU, I don't want to go through that again. Benjamin, you don't want the treatments anymore right? Pt shook his head no. RN explained that pt has a right to refuse treatments. Pt's father wrote a letter stating that pt does not want to receive any additional ECT treatments and he signed the letter along with the pt. Dr. Vega aware who will reach out to Dr. Crane.
--- NOTE | 2023-03-12 19:35 | HO.PSYCHPN ---
Subjective Subjective Date of Service: 03/12/23 Reason For Visit: Psychosis Interim History: Patient seen. He is tolerating ECT. He denies complications. Later in the day, his father told RN Benjamin shouldn't be getting ECT due to having complications 10 years ago while getting ECT. He reported that after talking to him, patient also said he doesn't want to do ECT anymore. Patient was told he has the right to refuse treatment. Otherwise patient is feeling his mood is improving. Per staff, no issues overnight. Review of Systems Review of Systems Yes all other systems are reviewed and are negative Constitutional: Reports no additional constitutional complaints, Denies chills, Denies fever(s) and Denies night sweats Eyes: Reports no additional eye complaints, Denies blurry vision, Denies change in vision, Denies diplopia, Denies eye discharge, Denies loss of vision and Denies eye pain Denies dizziness Cardiovascular: Reports no additional cardiovascular complaints, Denies chest pain, Denies lightheadedness, Denies Loss of Consciousness and Denies dyspnea Respiratory: Reports no additional respiratory complaints and Denies dyspnea Gastrointestinal: Reports no additional gastrointestinal complaints, Denies abdominal pain, Denies melena, Denies hematochezia, Denies change in bowel habits and Denies change in stool character Genitourinary: Reports no additional male genitourinary complaints, Denies hematuria, Denies oliguria, Denies difficulty urinating, Denies dysuria, Denies urinary frequency, Denies urinary hesitancy, Denies urinary incontinence and Denies urinary urgency Musculoskeletal: Reports no additional musculoskeletal complaints, Denies numbness and Denies tingling Denies dizziness, Denies loss of vision, Denies numbness and Denies tingling Psychiatric: Reports no additional psychiatric complaints Endocrine: Reports no additional endocrine complaints Hematologic/Lymphatic: Reports no additional hematologic/lymphatic complaints Allergic/Immunologic: Reports no additional allergic/immunologic complaints Mental Status Exam Mental Status Exam Narrative: Appearance: wearing street clothes, fair eye contact, in NAD Behavior: cooperative Psychomotor: moderate retardation Speech: nml rate, decr amount, decr loudness, incr latency TP: linear, logical TC: no delusions or paranoia expressed Affect: constricted, hypo-intense, non-labile mood: depressed SI: none expressed HI: none expressed VH/AH: no AVH expressed Insight/judgment: fair x 2. Memory/cog: alert, oriented x 3. Diagnostics Vital Signs (24Hr): Vital Signs - 24 hr 03/11/23 19:45 03/12/23 06:00 03/12/23 07:55 Temperature 97.8 F 97.4 F 97.4 F Pulse Rate 77 62 62 Respiratory Rate 16 18 18 Blood Pressure 120/60 133/62 133/62 Pulse Oximetry 99 96 96 Oxygen Delivery Method Room Air Room Air Room Air BMI result Body Mass Index 31.5 Labs 03/05/23 11:05 03/12/23 08:15 Labs: Laboratory Results - last 48 hr 03/12/23 03/12/23 07:49 08:15 Absolute Neuts (auto) 4.4 Creatinine 1.26 Estim Creat Clear Calc 74.7 Estimated GFR 59 POC Glucose 120 H Imaging Radiology Impressions: ITS Impressions Chest X-Ray 03/05/23 11:16 IMPRESSION: Unremarkable examination. Head CT 03/05/23 11:42 IMPRESSION: No acute intracranial findings. Mild sphenoid sinus disease. Medications Medications Current Medications Acetaminophen (Acetaminophen 325 Mg Tablet) 650 mg PO Q6H PRN PRN Reason: Headache/Pain Mild Scale (1-3) Al Hydroxide/Mg Hydroxide (Magnesium Hydrox/Alum Hydrox 30 Ml Oral.Susp) 30 ml PO Q6H PRN PRN Reason: Heartburn/Nausea Clozapine (Clozapine 100 Mg Tablet) 300 mg PO BEDTIME [facility] Last Admin: 03/11/23 20:37 Dose: 300 mg Docusate Sodium (Docusate Sodium 100 Mg Capsule) 200 mg PO BID [facility] Last Admin: 03/12/23 08:02 Dose: 200 mg Hydroxyzine HCl (Hydroxyzine Hcl 25 Mg Tablet) 25 mg PO Q6H PRN PRN Reason: Anxiety [place] Carbonate ([place] Carbonate Er 300 Mg Tablet.Er) 600 mg PO BEDTIME [facility] Last Admin: 03/11/23 20:37 Dose: 600 mg Lorazepam (Lorazepam 1 Mg Tablet) 1 mg PO TID [facility] Last Admin: 03/12/23 14:44 Dose: 1 mg Magnesium Hydroxide (Milk Of Magnesia 30 Ml Oral.Susp) 30 ml PO DAILY PRN PRN Reason: Constipation Metformin HCl (Metformin Hcl Er 500 Mg Tab.Er.24h) 500 mg PO DAILY [facility] Last Admin: 03/12/23 08:02 Dose: 500 mg Omeprazole (Omeprazole 20 Mg Capsule.) 20 mg PO DAILY@0630 [facility] Last Admin: 03/12/23 06:22 Dose: 20 mg Polyethylene Glycol (Polyethylene Glycol 3350 17 Gm Powd.Pack) 17 gm PO DAILY [facility] Last Admin: 03/12/23 08:02 Dose: 17 gm Senna (Sennosides 8.6 Mg Tablet) 17.2 mg PO BEDTIME [facility] Last Admin: 03/11/23 20:37 Dose: 17.2 mg Sertraline HCl (Sertraline Hcl 50 Mg Tablet) 150 mg PO DAILY [facility] Last Admin: 03/12/23 08:02 Dose: 150 mg Tamsulosin HCl (Tamsulosin Hcl 0.4 Mg Capsule) 0.4 mg PO BEDTIME [facility] Last Admin: 03/11/23 20:37 Dose: 0.4 mg Trazodone HCl (Trazodone Hcl 50 Mg Tablet) 50 mg PO BEDTIME MRX1 PRN PRN Reason: Insomnia Last Admin: 03/09/23 20:03 Dose: 50 mg Allergies Allergies Allergy/AdvReac Type Severity Reaction Status Date / Time No Known Allergies [NKA] Allergy Unknown NONE Verified 12/21/22 09:41 Assessment & Plan Assessment & Plan (1) Routine medical exam: Status: Acute Code(s): Z00.00 - Encounter for general adult medical examination without abnormal findings Assessment and Plan: 57-year-old male with history of hypertension, [id number] type 2 diabetes, schizoaffective disorder, and depression with catatonia admitted to Psychiatry consult placed to hospitalist service for ECT evaluation. # schizoaffective disorder/depression with catatonia -plan per Psychiatry -VS are stable. EKG is without dysrhythmia or significant ST/T wave abnormality, QT/QTc normal. At this time, no medical contraindication exists that would preclude pt from undergoing ECT. (2) Schizoaffective disorder, depressive type: Status: Acute Code(s): F25.1 - Schizoaffective disorder, depressive type Plan 03/07: continue outpt medications. obtain ECT clearance. begin inpatient ECT, to start monday. 03/08: medically cleared for ECT. scheduled for monday. continue current mgmt. 03/09: ECT tomorrow. remains slowed and depressed, non-psychotic. hold ativan tonight. continue plan of care otherwise. 03/10: awaiting anoon ECT. no change in presentation. continue current mgmt. 03/11: Continue current management and treatment plan. 03/12: Hold ECT tomorrow. Informed primary team about above. Reason for continued inpatient stay Substantial Risk for: harm to self, inability to function and rapid decompensation Time Spent With Patient Time: Total time managing care of this patient today ____ minutes.
[2023-03-12 21:00] VITALS: BP 134/64; PULSE 66; RESP 16; TEMP 36.2; O2SAT 98
[2023-03-12] MEDS: cloZAPine 100 MG TABLET 300 MG PO (21:07)
[2023-03-12] MEDS: Lithium Carbonate ER 300 MG TABLET.ER 600 MG PO (21:07)
[2023-03-12] MEDS: Tamsulosin HCL 0.4 MG CAPSULE PO (21:07)
[2023-03-12] MEDS: Sennosides 8.6 MG TABLET 17.2 MG PO (21:08)
[2023-03-12 21:17] LABS: Glucose, Whole Blood 88 mg/dL (60-115)
[2023-03-13] MEDS: Omeprazole 20 MG CAPSULE.DR PO (07:15)
[2023-03-13 08:09] LABS: Glucose, Whole Blood 103 mg/dL (60-115)
[2023-03-13] MEDS: metFORMIN HCl ER 500 MG TAB.ER.24H PO (08:37)
[2023-03-13] MEDS: Sertraline HCL 50 MG TABLET 150 MG PO (08:38)
[2023-03-13] MEDS: Docusate Sodium 100 MG CAPSULE 200 MG PO ×2 (08:38→20:40)
[2023-03-13] MEDS: LORazepam 1 MG TABLET PO ×3 (08:38→20:39)
[2023-03-13] MEDS: polyethylene glycoL 3350 17 GM POWD.PACK PO (08:39)
[2023-03-13 08:52] VITALS: BP 153/73; PULSE 100; RESP 18; TEMP 36.2; O2SAT 96
--- NOTE | 2023-03-13 11:57 | MHC.SL.SWA ---
Speech Pathologist Impression: Risk of aspiration, oropharyngeal dysphagia Dysphasia Diet Status: DOWNGRADE solids to NDD3, requiring 1-1 supervision/cuing. Cues: take small bites and sips, chew well, slow rate of ingestion, alternate solids and liquids, wait to introduce new bites until oral cavity is cleared. Liquid Consistency and Strategies for Safe Swallow: Liquid Intake Recommendation: Thin Liquid Intake Strategies: Small Sips Solid Food Consistency: Dietary Recommendations: Chopped/Advanced (NDD3) Additional Modifications to Solid Foods: Pt seen for bedside dysphagia evaluation this morning. Pt demonstrated some impulsive and unsafe eating behaviors, such as taking heaping spoonfuls of food and packing mouth with food before swallowing. He responded very well to verbal cues requesting him to take smaller bites, to eat with a small pace, take one bite at a time, and alternating bites of food with sips of liquid. Recommend START pt on CHOPPED/ADVANCED solids (NDD3) and THIN liquids, pills CRUSHED or WHOLE in PUREE depending on pt's tolerance/preference. Pt is recommended TOTAL supervision as he would benefit from cues throughout meals. SEASONAL TAX PREPARER will continue to follow. Oral Medication Intake: Crushed with Puree Please contact the pharmacy regarding appropriate crushable or liquid drug formulations that are available whenever modified delivery is recommended. Compensatory Strategies and Precautions to be Taken for Safe Swallow: Sitting Upright (90 deg) Double Swallow No Straw Small Bites and Sips Alternate Liquids/Solids Rate of Ingestion Change Avoid Specific Foods Supervision While Eating and Drinking for Safe Swallow: Total Supervision (1:1) Foods to Avoid: Hard, dry, or sticky foods; mixed textures (i.e. thin broth with solid ingredients) Swallowing Recommended Treatments: Compens. Strategy Educat. Recommendation for Speech: Inpatient Speech Therapy Comment: SEASONAL TAX PREPARER will continue to monitor given pt's history of dysphagia Control Panel Assembler Clinican/Clinical Fellow: No Supervisory Statement: I have reviewed and agree with the student/clinical fellow's documentation: N/A Speech Language Pathologist: Nona Whitmore M.A., [facility]-SEASONAL TAX PREPARER
--- NOTE | 2023-03-13 12:20 | P.DS_ITS ---
DS: Providers Provider Date of Service: 03/13/23 Date of admission: 03/06/23 14:33 Primary care physician: Jonn Smith MD DS: Diagnosis Discharge Diagnosis (1) Routine medical exam: Status: Acute (2) Schizoaffective disorder, depressive type: Status: Acute DS: Medications Discharge Medications Home Medications: Home Medications Medication Instructions Recorded Confirmed lancets 28 gauge (FreeStyle 01/04/23 01/04/23 Lancets) tamsulosin 0.4 mg capsule 0.4 mg PO QPM 01/04/23 03/06/23 Previous Rx's Medication Instructions Recorded clozapine 100 mg tablet 300 mg (3 x 100 mg) PO BEDTIME #45 07/19/22 tabs lithium carbonate 300 mg capsule 600 mg (2 x 300 mg) PO BEDTIME #60 07/19/22 caps lorazepam 1 mg tablet 1 mg PO TID #90 tabs 07/19/22 sennosides 8.6 mg tablet (Senna 17.2 mg (2 x 8.6 mg) PO BEDTIME 09/05/22 Lax) #90 tabs docusate sodium 100 mg capsule 200 mg (2 x 100 mg) PO BID #120 12/18/22 caps metformin 500 mg tablet,extended 500 mg PO DAILY #30 tabs 12/26/22 release 24 hr omeprazole 20 mg capsule,delayed 20 mg PO BID@0630,1630 30 days #60 02/01/23 release caps polyethylene glycol 3350 17 gram 17 g PO DAILY 30 days #30 ea 02/01/23 oral powder packet sertraline 50 mg tablet 150 mg (3 x 50 mg) PO DAILY #0 tabs 02/01/23 Mental Status Exam Mental Status Exam Narrative: Appearance: wearing street clothes, fair eye contact, in NAD Behavior: cooperative Psychomotor: moderate retardation Speech: decr rate, decr amount, decr loudness, incr latency TP: linear, logical TC: no delusions or paranoia expressed Affect: constricted, hypo-intense, non-labile mood: good SI: none HI: none VH/AH: no AVH Insight/judgment: fair x 2. Memory/cog: alert, oriented x 3. Data Data Completed and Pending Completed studies during hospitalization [Text1]: 03/07/23 03/08/23 03/09/23 09:03 07:42 08:10 Absolute Neuts (auto) Creatinine Estim Creat Clear Calc Estimated GFR POC Glucose 96 124 H 98 03/10/23 03/10/23 03/12/23 07:37 12:55 07:49 Absolute Neuts (auto) Creatinine Estim Creat Clear Calc Estimated GFR POC Glucose 100 77 120 H 03/12/23 03/12/23 03/13/23 08:15 21:05 07:37 Absolute Neuts (auto) 4.4 Creatinine 1.26 Estim Creat Clear Calc 74.7 Estimated GFR 59 POC Glucose 88 103 Imaging Diagnostic Imaging Impressions Chest X-Ray 03/05/23 11:16 IMPRESSION: Unremarkable examination. Head CT 03/05/23 11:42 IMPRESSION: No acute intracranial findings. Mild sphenoid sinus disease. DS: Summary Hospital Course Hospital Course: per 03/07 admission note: per CARE team evaluation, pt was referred for evaluation by his [facility], who found him slower than usual and appearing to decompensate. he was found suitable for admission and received one ECT Tx prior to admission. he is slated for another course of ECT inpatient. he appears vastly improved from when he was admitted most recently (01/04/23), but not as well as when he was discharged (01/31/23). he is clearly slower, more distracted, and less spontaneous. he endorses depressed mood, denies SI/AVH. he endorses interest in ECT. Past Psychiatric History: Inpatient: multiple in the past. h/o ECT for catatonia. OP: [facility] Past medication trials: clozaril, ativan, sertraline, olanzapine. Medical Evaluation Reviewed: Yes [facility] Medical History Nocturnal hypoxia Joint inflammation of right hand and wrist Status post fall Adult general medical exam Screening for colon cancer Screening for prostate cancer Cough Routine medical exam Schizophrenia, catatonic BPH (benign prostatic hyperplasia) Essential (primary) hypertension Diabetes mellitus Surgical History History of colonoscopy History of tooth extraction History of root canal procedure Family History: unknown Social History: lives independently, works, drives. apartment in [place]. Substance History: none Trauma History: unknown Precis: 03/07: continue outpt medications. obtain ECT clearance. begin inpatient ECT, to start monday. 03/08: medically cleared for ECT. scheduled for monday. continue current mgmt. 03/09: ECT tomorrow. remains slowed and depressed, non-psychotic. hold ativan tonight. continue plan of care otherwise. 03/10: awaiting anoon ECT. no change in presentation. continue current mgmt. 03/11: Continue current management and treatment plan. 03/12: pt refusing ECT after pressure from his father. Hold ECT tomorrow. Informed primary team about above. 03/13: pt affirms he does not want ECT. meds reviewed, reconciled. pt to be discharged tomorrow to outpt F/U. 03/14: no change in presentation, discharged as per plan. remains similar in presentation to time of discharge at last hospitalization. per 03/13 speech therapy eval: Speech Pathologist Impression: Risk of aspiration, oropharyngeal dysphagia Dysphasia Diet Status: DOWNGRADE solids to NDD3, requiring 1-1 supervision/cuing. Cues: take small bites and sips, chew well, slow rate of ingestion, alternate solids and liquids, wait to introduce new bites until oral cavity is cleared. Liquid Consistency and Strategies for Safe Swallow: Liquid Intake Recommendation: Thin Liquid Intake Strategies: Small Sips Solid Food Consistency: Dietary Recommendations: Chopped/Advanced (NDD3) Additional Modifications to Solid Foods: Pt seen for bedside dysphagia evaluation this morning. Pt demonstrated some impulsive and unsafe eating behaviors, such as taking heaping spoonfuls of food and packing mouth with food before swallowing. He responded very well to verbal cues requesting him to take smaller bites, to eat with a small pace, take one bite at a time, and alternating bites of food with sips of liquid. Recommend START pt on CHOPPED/A DVANCED solids (NDD3) and THIN liquids, pills CRUSHED or WHOLE in PUREE depending on pt's tolerance/preference. Pt is recommended TOTAL supervision as he would benefit from cues throughout meals. 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 Oral Medication Intake: Crushed with Puree Please contact the pharmacy regarding appropriate crushable or liquid drug formulations that are available whenever modified delivery is recommended. Compensatory Strategies and Precautions to be Taken for Safe Swallow: Sitting Upright (90 deg) Double Swallow No Straw Small Bites and Sips Alternate Liquids/Solids Rate of Ingestion Change Avoid Specific Foods Supervision While Eating and Drinking for Safe Swallow: Total Supervision (1:1) Foods to Avoid: Hard, dry, or sticky foods; mixed textures (i.e. thin broth with solid ingredients) Swallowing Recommended Treatments: Compens. Strategy Educat. Recommendation for Speech: Inpatient Speech Therapy Time Spent with Patient Time attestation: Total time managing care of this patient today ____ minutes. Time spent: Greater than 30 minutes Discharge Plan Discharge Anticipated Discharge Date/Time: 03/14/23 11:00 Patient Disposition: Home, Self-Care Discharge Diagnosis: schizoaffective disorder, depressive type Referrals: Psychiatry [Other] - 1 Week (*Your [facility] outreach staff will reach out to [facility] in order to obtain your follow up appointment. ) [facility] [Other] - 1 Week ([facility] services to restart this evening.) Jonn Smith MD [Primary Care Provider] - 1 Week (PCP office will contact patient with appt.) Discharge Medications: Continued sennosides [Senna Lax] 8.6 mg tablet 17.2 mg PO BEDTIME Qty: 90 3RF docusate sodium 100 mg capsule 200 mg PO BID Qty: 120 3RF metformin 500 mg tablet extended release 24 hr 500 mg PO DAILY Qty: 30 1RF clozapine 100 mg Tablet 300 mg PO BEDTIME Qty: 45 0RF lithium carbonate 300 mg Capsule 600 mg PO BEDTIME Qty: 60 0RF lorazepam 1 mg Tablet 1 mg PO TID Qty: 90 0RF tamsulosin 0.4 mg capsule 0.4 mg PO QPM (DME) lancets [FreeStyle Lancets] 28 gauge misc See Rx Instructions .ROUTE .COMPLEX Rx Instructions: TEST BLOOD SUGAR ONCE DAILY polyethylene glycol 3350 17 gram Powder In Packet 17 g PO DAILY 30 Days Qty: 30 0RF omeprazole 20 mg Capsule,Delayed Release(Dr/Ec) 20 mg PO BID@0630,1630 30 Days Qty: 60 0RF sertraline 50 mg Tablet 150 mg PO DAILY Qty: 0 0RF Discharge Orders: Discharge Order (Routine); Ordered 03/14/23 Ordered By: Alejandro Crane Diet: Diabetic diet Activity on Discharge: As tolerated Stand Alone Forms: Patient Portal Discharge page, Community Support Care Plan Goals: remain safe and stable in the outpatient treatment setting Health Concerns: Diabetes Mellitus Plan of Treatment: take medications as prescribed, attend appointments as scheduled Assessment: not at imminent risk of harm to self or others Discharge Date/Time: 03/14/23 11:57
[2023-03-13 19:13] VITALS: BP 116/67; PULSE 83; RESP 16; TEMP 36; O2SAT 95
[2023-03-13] MEDS: cloZAPine 100 MG TABLET 300 MG PO (20:38)
[2023-03-13] MEDS: Lithium Carbonate ER 300 MG TABLET.ER 600 MG PO (20:38)
[2023-03-13] MEDS: Tamsulosin HCL 0.4 MG CAPSULE PO (20:39)
[2023-03-13] MEDS: Sennosides 8.6 MG TABLET 17.2 MG PO (20:40)
[2023-03-13 20:49] LABS: Glucose, Whole Blood 127 mg/dL (60-115)
[2023-03-14] MEDS: Omeprazole 20 MG CAPSULE.DR PO (06:35)
[2023-03-14 07:55] VITALS: BP 134/65; PULSE 72; RESP 16; TEMP 36.6; O2SAT 95
[2023-03-14 08:34] LABS: Glucose, Whole Blood 100 mg/dL (60-115)
[2023-03-14] MEDS: Sertraline HCL 50 MG TABLET 150 MG PO (08:55)
[2023-03-14] MEDS: LORazepam 1 MG TABLET PO (08:55)
[2023-03-14] MEDS: metFORMIN HCl ER 500 MG TAB.ER.24H PO (08:56)
[2023-03-14] MEDS: Docusate Sodium 100 MG CAPSULE 200 MG PO (08:56)
[2023-03-14] MEDS: polyethylene glycoL 3350 17 GM POWD.PACK PO (08:57)
== END 2023-03-14 11:57 | disposition home or self-care (01) | DRG 885 ==
LOC: HO.ED 03-06 14:28 → HO.PADLT16 03-06 14:46
PROVIDERS: Physician Assistant Medical; Psychiatry & Neurology Psychiatry; Student in an Organized Health Care Education/Training Program; Admitting Provider Psychiatry & Neurology Psychiatry; Emergency Provider Emergency Medicine Emergency Medical Services; PCP Internal Medicine; Visit Provider Psychiatry & Neurology Psychiatry
PROC: (CPT 90870; principal; 2023-03-06 07:30)
PROC: GZB4ZZZ Other Electroconvulsive Therapy (ICD-10-PCS; CPT 90870; principal; 2023-03-10 15:30)
DX: F25.1 Schizoaffective disorder, depressive type (principal); I10 Essential (primary) hypertension; E11.9 Type 2 diabetes mellitus without complications; F06.1 Catatonic disorder due to known physiological condition; Z20.822 Contact with and (suspected) exposure to COVID-19; Z79.84 Long term (current) use of oral hypoglycemic drugs; Z79.899 Other long term (current) drug therapy
CPT/HCPCS: 36415; 70450; 71045; 80053; 80143; 80178; 80179; 80307; 81003; 82565; 82947; 85025; 85048; 87635; 90870; 92610; 93005; 99285; J0330; J2060; J2405; S9485

== ENCOUNTER → 2023-03-05 10:27 | Outpatient (BNV) | payer MEDICARE, MEDICAID, SELFPAY | PROVIDERS: Emergency Provider Emergency Medicine Emergency Medical Services; PCP Internal Medicine; Visit Provider Internal Medicine Cardiovascular Disease | DX: R94.31 Abnormal electrocardiogram [ECG] [EKG] (principal); R41.82 Altered mental status, unspecified | CPT/HCPCS: 93010 ==

== ENCOUNTER → 2023-03-05 10:55 | Outpatient (BNV) | payer MEDICARE, MEDICAID, SELFPAY | PROVIDERS: Emergency Provider Emergency Medicine Emergency Medical Services; PCP Internal Medicine; Visit Provider Psychiatry & Neurology Psychiatry | DX: F25.1 Schizoaffective disorder, depressive type (principal) | CPT/HCPCS: 90792; 90870; 99231; 99239 ==

== ENCOUNTER → 2023-03-06 14:33 | Outpatient (BNV) | payer MEDICARE, MEDICAID, SELFPAY | PROVIDERS: Admitting Provider Psychiatry & Neurology Psychiatry; Emergency Provider Emergency Medicine Emergency Medical Services; PCP Internal Medicine; Visit Provider Physician Assistant | DX: Z02.2 Encounter for examination for admission to residential institution (principal) | CPT/HCPCS: 99429 ==

== ENCOUNTER 2023-03-28 13:55 | Outpatient (REF) | payer MEDICARE, MEDICAID, SELFPAY ==
[2023-03-28 14:10] LABS: MANUAL DIFF FLAG NO
[2023-03-28 15:01] LABS: Hematocrit 38.2 % (42.0-52.0); Hemoglobin 12.3 g/dl (14.0-18.0); Imm Gran Abs Auto 0.05 X10*3/uL (0.00-0.03); Imm Gran Pct Auto 0.7 % (0.0-0.4); Lymphocytes Absolute Auto 1.5 X10*3/uL (1.2-4.9); Lymphocytes Percent Auto 19.7 % (20-40); Mean Corpuscular HGB Conc 32.2 g/dl (31.0-36.0); Mean Corpuscular Hemoglobin 28.5 pg (27.0-33.0); Mean Corpuscular Volume 88.6 fL (80.0-98.0); Mean Platelet Volume 10.7 fL (9.4-12.4); Monocytes Absolute Auto 0.5 X10*3/uL (0.1-1.2); Monocytes Percent Auto 7.1 % (2-11); Neutrophils Absolute Auto 5.5 x10*3/uL (2.0-8.3); Neutrophils Percent Auto 72.5 % (45-73); Platelet Count 181 X10*3/uL (160-400); Red Blood Count 4.31 X10*6/uL (4.60-5.80); Red Cell Distribution Width 13.2 % (11.0-16.0); White Blood Count 7.6 X10*3/uL (4.8-10.8)
== END 2023-03-28 13:56 | disposition home or self-care (01) ==
LOC: HO.LABR 13:55
PROVIDERS: Visit Provider Clinical Nurse Specialist Psychiatric/Mental Health, Adult
DX: Z79.899 Other long term (current) drug therapy (principal)
CPT/HCPCS: 36415; 85025

== ENCOUNTER 2023-04-05 12:59 | Outpatient (AMB) | payer MEDICARE, MEDICAID, SELFPAY ==
--- NOTE | 2023-04-05 13:19 | MHC.OFFVIS ---
Intake Vital Signs 04/05/23 13:21 Height 5 ft 10 in Weight 233 lb 4 oz BMI 33.5 BP 138/62 Blood Pressure Location Rt brachial Position Sitting Pulse 70 Pulse Source Pulse Oximeter Pulse Oximetry (%) 96 Oxygen Delivery Method Room Air Intake Visit Reasons: f/u appt - Confirmed with [facility] Allergies No Known Allergies [NKA] Allergy (Unknown, Verified 04/05/23 13:23) NONE HPI HPI Comments History of Present Illness Details 57 y/o male patient presents for follow up of sleep study. The home sleep study result was significant for a severe degree of sleep apnea. The AHI was 56/hr and there is also nocturnal hypoxemia with average O2 sat 89%. lowest O2 sat 79%. The the duration of O2 sat lower than 88% for 134 min. In lab titration study ordered, but the test was hold due to too soon to have a repeat sleep study. Pt reports he wakes up gasping frequently, and having non refreshing sleep. He wakes up tired and exhausted. He feels he breathe heavy, and can't sleep on his back, needs to sleep on his side. He always sleepy and tired. [facility] Medical History (Updated 04/05/23 @ 13:34 by Jean Carlos Roldan CNP) Mild sleep apnea Nocturnal hypoxia Routine medical exam Joint inflammation of right hand and wrist Status post fall Adult general medical exam Screening for colon cancer Screening for prostate cancer Cough Schizophrenia, catatonic BPH (benign prostatic hyperplasia) Essential (primary) hypertension Diabetes mellitus Surgical History History of colonoscopy History of tooth extraction History of root canal procedure Family History Mother Cancer Father Kidney agenesis Social History Household Members: None Housing: Apartment Do you presently have visiting nurse or other home services: Yes Alcohol intake: former Comment: 1:1 Patient Tobacco Use Status: Never used Tobacco e-Cigarette/Vaping Use: Never Used Second Hand Smoke Exposure: No service: No Current occupational status: employed Sexual orientation: Straight/Heterosexual Cognitive needs: No Hearing needs: No Vision needs: No Review of Systems Const All systems reviewed & are unremarkable except as noted in HPI and below ENT Reports Normal hearing present Neuro Reports Normal hearing present Physical Exam Vital Signs: Last Vital Signs Pulse 70 04/05/23 13:21 BP 138/62 04/05/23 13:21 Pulse Ox 96 04/05/23 13:21 Oxygen Delivery Method Room Air 04/05/23 13:21 BMI result Body Mass Index 33.5 Const General: cooperative and tired appearing Nutritional Appearance: obese Orientation/consciousness: patient oriented x3 Neck Neck: Yes full ROM and Yes supple Resp Effort & Inspection: normal respiratory effort and able to speak in complete sentences Neuro Other: Dyskinesia, mouth and leg involuntary movement. General: patient oriented x3 and gait normal Cranial nerves: Yes Bilaterally intact EOM present, Yes Normal facial strength present, Yes Midline tongue present, Yes Symmetric palate elevation present, Yes Normal hearing present, Yes Ability to bilaterally rotate head present and Yes Ability to bilaterally elevate shoulders present Cognition (Neuro): normal cognition Psych Appearance: grossly normal Speech and movement: Other speech and movement exam findings present (Psych) (dyskinesia, mouth and leg invoulntary movement. ) Affect: Other affect and mood findings present (flat effect but cooperative. ) Attitude: cooperative Assessment & Plan Assessment & Plan (1) Nocturnal hypoxia: Code(s): G47.34 - Idiopathic sleep related nonobstructive alveolar hypoventilation (2) Sleep apnea: Comment: Severe degree of sleep apnea with hypoxemia. Code(s): G47.30 - Sleep apnea, unspecified Plan Advised patient to undergo in lab CPAP titration study to find optimal CPAP pressure to treat sleep apnea and nocturnal hypoxemia. Advised patient to continue to sleep on his side. Sleep hygiene education provided, limit electronic screen use before bedtime. Wt reduction adivsed. Orders: Orders RT PSG in-lab sleep titration Today G47.30 - Sleep apnea, unspecified, G47.34 - Idiopathic sleep related nonobstructive alveolar hypoventilation Coding Level of Care Code Est Pt Level 3 (15433) Diagnoses Nocturnal hypoxia G47.34 Sleep apnea G47.30
[2023-04-05 13:21] VITALS: BP 138/62; PULSE 70; O2SAT 96; BMI 33.5
== END 2023-04-05 13:40 | disposition home or self-care (01) ==
PROVIDERS: PCP Internal Medicine; Visit Provider Nurse Practitioner Family
DX: G47.34 Idiopathic sleep related nonobstructive alveolar hypoventilation (principal); G47.30 Sleep apnea, unspecified
CPT/HCPCS: 99213

== ENCOUNTER → 2023-04-05 12:59 | Outpatient (BNVA) | payer MEDICARE, MEDICAID, SELFPAY | PROVIDERS: PCP Internal Medicine; Visit Provider Nurse Practitioner Family | DX: G47.34 Idiopathic sleep related nonobstructive alveolar hypoventilation (principal); G47.30 Sleep apnea, unspecified | CPT/HCPCS: 99212 ==

== ENCOUNTER 2023-04-13 13:29 | Outpatient (AMB) | payer MEDICARE, MEDICAID, SELFPAY ==
--- NOTE | 2023-04-13 13:44 | MHC.PC.OV ---
Vital Signs 04/13/23 13:46 Height 5 ft 10 in Weight 222 lb 8 oz BMI 31.9 BP 110/72 Blood Pressure Location Lt brachial Position Sitting Pulse 67 Pulse Source Pulse Oximeter Pulse Oximetry (%) 96 Oxygen Delivery Method Room Air Intake Visit Reasons: 6 month f/u Intake Note: Patient is here to follow up on HTN, DM, Sleep [place]. Financial Planning Analyst Required: No Merchandise Planner: Not Required per policy Accompanied by: Self / Same As Patient Allergies No Known Allergies [NKA] Allergy (Unknown, Verified 04/13/23 14:27) NONE Medication List - Last Reconciled 04/13/23 by Jonn Smith MD clozapine 300 mg (3 x 100 mg) PO BEDTIME docusate sodium 200 mg (2 x 100 mg) PO BID lancets (FreeStyle Lancets) TEST BLOOD SUGAR ONCE DAILY lithium carbonate 600 mg (2 x 300 mg) PO BEDTIME lorazepam 1 mg PO TID metformin ER 500 mg PO DAILY omeprazole 20 mg PO BID@0630,1630 30 days omeprazole magnesium (Prilosec) 10 mg PO DAILY sennosides (Senna Lax) 17.2 mg (2 x 8.6 mg) PO BEDTIME sertraline 150 mg (3 x 50 mg) PO DAILY tamsulosin 0.4 mg PO QPM Tobacco use date assessed: 04/13/23 Dental Screening Dental Screen Date: 04/13/23 Did you have a dental visit in the last 12 months?: Yes Did you have a dental problem in the last 6 months where you did not have access to dental care?: No Was dental information given to patient?: Patient has dentist HPI 6 month f/u HPI Details 57-year-old male presents to the office to discuss his medical condition. Patient comes alone for the office visit. He has been driving independently. Patient has schizoaffective disorder and response to questions very slowly. He reports that he has been taking medications and has been seeing the psychiatrist. Could not recollect if he needed any refills. EMR reviewed and determined that patient was seen by the neurologist for evaluation of obstructive sleep apnea. A sleep study has been requested. [facility] Medical History Mild sleep apnea Nocturnal hypoxia Routine medical exam Joint inflammation of right hand and wrist Status post fall Adult general medical exam Screening for colon cancer Screening for prostate cancer Cough Schizophrenia, catatonic BPH (benign prostatic hyperplasia) Essential (primary) hypertension Diabetes mellitus Surgical History History of colonoscopy History of tooth extraction History of root canal procedure Family History Mother Cancer Father Kidney agenesis Social History Household Members: None Housing: Apartment Do you presently have visiting nurse or other home services: Yes Alcohol intake: former Comment: 1:1 Patient Tobacco Use Status: Never used Tobacco e-Cigarette/Vaping Use: Never Used Second Hand Smoke Exposure: No service: No Current occupational status: employed Sexual orientation: Straight/Heterosexual Cognitive needs: No Hearing needs: No Vision needs: No Questionnaire PHQ-9 Over the last 2 weeks, how often have you been bothered by any of the following problems? 1. Little interest or pleasure in doing things: not at all 2. Feeling down, depressed, or hopeless: several days 3. Trouble falling or staying asleep, or sleeping too much: not at all 4. Feeling tired or having little energy: not at all 5. Poor appetite or overeating: not at all 6. Feeling bad about yourself - or that you are a failure or have let yourself or your family down: not at all 7. Trouble concentrating on things, such as reading the newspaper or watching television: not at all 8. Moving or speaking so slowly that other people could have noticed. Or the opposite - being so fidgety or restless that you have been moving around a lot more than usual: not at all 9. Thoughts that you would be better off or of hurting yourself in some way: not at all Total score: 1 Depression Screening Interpretation: Negative Depression Screening Done: Yes Source: Developed by Drs. Jacob Bates, Farrah Scott, Jose Martin Powell and colleagues, with an educational brigid from [employer]. Thrive Questionnaire Date Thrive assessed: 04/13/23 I am a: Patient What is your living situation today?: I have a steady place to live Within the past 12 months, did the food you bought not last and you didn't have the money to get more?: Never true Within the past 12 months, did you worry whether your food would run out before you got money to buy more?: Never true Do you have trouble paying for medicines?: No Do you have trouble getting transportation to medical appointments?: No Do you have trouble paying your heating and electricity bill?: No Do you have trouble taking care of your child, family member or friend?: No Do you have trouble with day-to-day activities such as bathing, preparing meals, shopping, managing finances, etc.?: No Are you currently unemployed and looking for a job?: No Are you interested in more education?: No Currently or been in a relationship where the following occur: no concerns reported AUDIT C Alcohol Use Questionnaire (AUDIT-C) 1. How often do you have a drink containing alcohol?: Never Total Score: 0 JONAH-7 AMB Questionnaire JONAH-7 Date JONAH - 7 assessed: 04/13/23 Not being able to stop or control worryin = Not at all Worrying too much about different things: 0 = Not at all Trouble relaxin = Not at all Being so restless that it is hard to sit still: 0 = Not at all Becoming easily annoyed or irritable: 0 = Not at all Feeling afraid as if something awful might happen: 0 = Not at all Source: Developed by Drs. Jacob Bates, Farrah Scott, Jose Martin Powell and colleagues, with an educational brigid from [employer]. Physical exam (Primary Care) Vital Signs: Last Vital Signs Pulse 67 04/13/23 13:46 BP 110/72 04/13/23 13:46 Pulse Ox 96 04/13/23 13:46 Oxygen Delivery Method Room Air 04/13/23 13:46 BMI result Body Mass Index 31.9 Tobacco/Smoking Status: Tobacco use Status Tobacco use date assessed 04/13/23 04/13/23 13:46 Patient Tobacco Use Status Never used Tobacco 04/13/23 13:46 e-Cigarette/Vaping Use Never Used 04/13/23 13:46 PHQ-9: PHQ-9 Score PHQ-9: Total score 1 04/13/23 14:02 Depression Screening Interpretation: Negative Thrive Assessment: Date of Thrive Assessment Date Thrive assessed 04/13/23 04/13/23 13:46 Currently or been in a relationship where the following occur: no concerns reported Const General: cooperative and healthy appearing Nutritional Appearance: well nourished Orientation/consciousness: patient oriented x3 Limitations: no limitations HENMT Head: Yes normal to inspection Eyes General: appearance normal, both eyes and all related structures Neck Neck: Yes normal visual inspection Chest Chest palpation & inspection: normal palpation of entire chest wall Resp Effort & Inspection: normal respiratory effort Neuro General: patient oriented x3 Office Procedures Flu Questionnaire Does the patient have a severe egg allergy?: No Does the patient have severe life threatening allergies?: No Does the patient have a fever or illness today?: No Has the patient ever had Guillain-Westby Syndrome?: No Has the patient ever had any past reaction to a flu shot?: No Results AMB Hemoglobin A1c AMB Hemoglobin A1c 5.6 % Last Edit by CORRY Harris on 04/13/23 14:01 Immunizations flu vacc [id number] 6mos up(PF) 60 mcg(15 mcgx4)/0.5 mL IM syringe Performing Provider: Jonn Smith MD Performing Location: [facility] Administered by: CORRY George on 04/13/23 14:07 Dose Route Admin Location Dispensed Lot Number Expiration Date NDC Raw Stock Dyeing Machine Tender 0.5 mL IM Left Tricep 0.5 mL [id number] 09/24/23 15308-710-58 [employer] VIS Given Date VIS Provided VIS Publication Date 04/13/23 Single Vaccine 20 Eligibility Eligibility Date Funding Source Not VFC Eligible 04/13/23 Private Results Reviewed Results Reviewed: Laboratory Last Values Hgb A1c (Clinic) 5.6 % (4.0-6.0) 04/13/23 13:48 Assessment and Plan Assessment & Plan (1) Diabetes mellitus: Code(s): E11.9 - Type 2 diabetes mellitus without complications Qualifiers: Diabetes mellitus type: type 2 Diabetes mellitus senior living insulin use: without keno terminal operator use Diabetes mellitus complication status: with hyperglycemia Qualified Code(s): E11.65 - Type 2 diabetes mellitus with hyperglycemia Plan: A1c is in range. However creatinine seems to be increasing. Repeat blood work. Continue medications at same dosage. (2) Essential (primary) hypertension: Code(s): I10 - Essential (primary) hypertension Plan: Blood pressure is in range. Continue medications at same dosage. (3) Schizoaffective disorder, depressive type: Code(s): F25.1 - Schizoaffective disorder, depressive type Plan: Condition is stable. Patient does receive ECT treatment. Follow-up as per psychiatrist. (4) Sleep apnea: Comment: Severe degree of sleep apnea with hypoxemia. Code(s): G47.30 - Sleep apnea, unspecified Orders: Orders Influenza [id number] Immunization Today Z23 - Encounter for immunization AMB Hemoglobin A1c Today E11.9 - Type 2 diabetes mellitus without complications Coding Level of Care Code Est Pt Level 4 (20995) Diagnoses Type 2 diabetes mellitus with hyperglycemia, without long-term current use of insulin E11.65 Diabetes mellitus type: type 2 Diabetes mellitus senior living insulin use: without keno terminal operator use Diabetes mellitus complication status: with hyperglycemia Essential (primary) hypertension I10 Schizoaffective disorder, depressive type F25.1 Sleep apnea G47.30
[2023-04-13 13:46] VITALS: BP 110/72; PULSE 67; O2SAT 96; BMI 31.9
== END 2023-04-13 14:20 | disposition home or self-care (01) ==
PROVIDERS: PCP Internal Medicine; Visit Provider Internal Medicine
DX: Z23 Encounter for immunization (principal); E11.65 Type 2 diabetes mellitus with hyperglycemia; I10 Essential (primary) hypertension; F25.1 Schizoaffective disorder, depressive type; G47.30 Sleep apnea, unspecified
CPT/HCPCS: 83036; 90471; 90686; 99214

== ENCOUNTER 2023-04-16 17:44 | Inpatient (IN) | payer MEDICARE, MEDICAID, SELFPAY ==
--- NOTE | 2023-04-16 17:48 | ECG_ITS ---
Test Reason : crisis Blood Pressure : / mmHG Vent. Rate : 060 BPM Atrial Rate : 060 BPM P-R Int : 170 ms QRS Dur : 082 ms QT Int : 378 ms P-R-T Axes : 051 020 037 degrees QTc Int : 378 ms Normal sinus rhythm Nonspecific T wave abnormality Abnormal ECG When compared with ECG of 05-MAR-2023 10:35, No significant change was found Referred By: Norma Burger Electronically Signed By:Homer Paige
[2023-04-16 17:53] VITALS: BP 120/58; PULSE 122; PULSE 78; RESP 16; TEMP 36.4; O2SAT 97; O2SAT 98; BMI 31.4
--- NOTE | 2023-04-16 17:54 | ED_ITS ---
HPI - Psych General Chief Complaint: Psychiatric Symptoms Stated Complaint: EVAL Source: patient, EMS and old records reviewed Mode of arrival: EMS Limitations: other (vague historian) History of Present Illness HPI Narrative: 57 yo male with PMH of HTN, NIDDM, schizoaffective disorder, and depression with catatonia just admitted here start of february for episode and required ECT - responded well. Here after his VNA noted he has decompensated and worried he is in another cycle. He denies anything to me other than feeling tired and down. No trauma or pain. He is compliant with medications - he lives alone but has VNA at home twice a day. MD complaint: feels depressed Onset (ago): unknown Duration: constant History of same: Yes Relieving factors: none Exacerbating factors: none Context: other Associated psychiatric symptoms: depression Associated symptoms: other (fatigue and malaise) Treatments prior to arrival: none Related Data Home Medications Medication Instructions Recorded Confirmed lancets 28 gauge (FreeStyle 01/04/23 04/13/23 Lancets) tamsulosin 0.4 mg capsule 0.4 mg PO QPM 01/04/23 04/13/23 omeprazole magnesium 2.5 mg oral 10 mg PO DAILY 04/05/23 04/13/23 suspension,delayed release (Prilosec) Previous Rx's Medication Instructions Recorded clozapine 100 mg tablet 300 mg (3 x 100 mg) PO BEDTIME #45 07/19/22 tabs lithium carbonate 300 mg capsule 600 mg (2 x 300 mg) PO BEDTIME #60 07/19/22 caps lorazepam 1 mg tablet 1 mg PO TID #90 tabs 07/19/22 docusate sodium 100 mg capsule 200 mg (2 x 100 mg) PO BID #120 12/18/22 caps metformin 500 mg tablet,extended 500 mg PO DAILY #30 tabs 12/26/22 release 24 hr sertraline 50 mg tablet 150 mg (3 x 50 mg) PO DAILY #0 tabs 02/01/23 omeprazole 20 mg capsule,delayed 20 mg PO BID@0630,1630 30 days #60 03/17/23 release caps sennosides 8.6 mg tablet (Senna 17.2 mg (2 x 8.6 mg) PO BEDTIME 04/11/23 Lax) #90 tabs Allergies Allergy/AdvReac Type Severity Reaction Status Date / Time No Known Allergies [NKA] Allergy Unknown NONE Verified 04/13/23 14:27 Review of Systems 2 Review of Systems: Constitutional : No Fever, No Chills ENT/Mouth : No Ear Pain, No Nasal Congestion, No sore throat Eyes: No Eye Pain, No Swelling, No Redness Cardiovascular : No Chest Pain, No SOB Respiratory : No Cough, No Sputum, No Dyspnea Gastrointestinal : No Nausea, No Vomiting, No Diarrhea, No Hematochezia, No Melena Genitourinary : No Dysuria, No Urinary Frequency, No Hematuria Musculoskeletal : No Myalgias Skin : No Skin Lesions, No rash Neuro : No Weakness, No Numbness, No Paresthesias, No Dizziness, No Headache Psych : no Anxiety, positive Depression, no SI/HI Heme/Lymph: No Lymphadenopathy Endocrine : No Polyuria, No Polydipsia All other systems reviewed and are negative [facility] Past Medical History Attestation statement: The following information was validated with the patient. Source: old records reviewed Onset Date is defined in the Problem List Problems that require an onset date and time if occurred within 24 hrs of arrival to the ED Aortic Dissection and Rupture; Neurologic impairment; Cardiopulmonary Arrest; Endotracheal Intubation; Insertion or Replacement of Mechanical Circulatory Assist Device Medical History Mild sleep apnea Nocturnal hypoxia Routine medical exam Joint inflammation of right hand and wrist Status post fall Adult general medical exam Screening for colon cancer Screening for prostate cancer Cough Schizophrenia, catatonic BPH (benign prostatic hyperplasia) Essential (primary) hypertension Diabetes mellitus Surgical History History of colonoscopy History of tooth extraction History of root canal procedure Family History Family History Mother Cancer Father Kidney agenesis Social History Social History Household Members: None Housing: Apartment Do you presently have visiting nurse or other home services: Yes Alcohol intake: former Comment: 1:1 Patient Tobacco Use Status: Never used Tobacco Smoked in Last 30 Days: No e-Cigarette/Vaping Use: Never Used Second Hand Smoke Exposure: No Advance Directives: No Advance Directives Information Provided: No service: No Current occupational status: employed Sexual orientation: Straight/Heterosexual Cognitive needs: No Hearing needs: No Vision needs: No Physical Exam 2 Vital Signs: Vital Signs: Last Vital Signs Temp 97.6 F 04/16/23 17:53 Pulse 78 04/16/23 17:53 Resp 16 04/16/23 17:53 BP 120/58 L 04/16/23 17:53 Pulse Ox 97 04/16/23 17:53 O2 Del Method Room Air 04/16/23 17:53 BMI result Body Mass Index 31.4 Appearance: Alert. Oriented X3. No acute distress. Very soft spoken and flat affect Eyes: Pupils equal, round and reactive to light. ENT: Pharynx normal. Neck: Normal inspection. Neck supple. CVS: Normal heart rate and rhythm. Pulses normal. Respiratory: No respiratory distress. Breath sounds normal. Abdomen: Soft and nontender. Skin: Skin warm and dry. Normal skin color. Normal skin turgor. Extremities: No lower extremity edema. No calf ttp Neuro: Oriented X 3. No motor deficit. No sensory deficit. CN2-12 intact Course Course Course Narrative: Physician observation started at 712pm. Patient placed in physician observation because the patient needed more time for CARE team to assess the need for psych admission. At the time observation was started the patient's vitals were stable, patient is alert and oriented but very withdrawn and flat affect Neuro: nonfocal, CV RRR, Lungs clear mild dehydration will give fluids and recheck Cr in AM Medical Decision Making Medical Decision Making [facility] Narrative: 57 yo male with PMH of HTN, NIDDM, schizoaffective disorder, and depression with catatonia here with c/o being tired and depressed - seems to be similar to recent admission he has a nonfocal neuro exam will obtain basic labs, CARE team consult and assess need for ECT treatment. Differential Diagnosis Differential Diagnoses: The differential diagnosis associated with the presentation includes depression, fatigue Admission/Observation Consideration of admission/observation: Escalation of care including admission/observation considered observe until assessed by care team Consult Healthcare Provider Management of the patient was discussed with: Behavioral Health Provider Lab Data [facility] Lab Attestation statement: I reviewed the patient's lab results. 04/16/23 18:26 04/16/23 18:26 Labs: Lab Results 04/16/23 04/16/23 04/16/23 Range/Units 18:25 18:26 18:28 WBC 8.6 (4.8-10.8) X10*3/uL RBC 4.51 L (4.60-5.80) X10*6/uL Hgb 12.9 L (14.0-18.0) g/dl Hct 40.9 L (42.0-52.0) % MCV 90.7 (80.0-98.0) fL MCH 28.6 (27.0-33.0) pg MCHC 31.5 (31.0-36.0) g/dl RDW 13.3 (11.0-16.0) % Plt Count 146 L (160-400) X10*3/uL MPV 10.8 (9.4-12.4) fL Immature Gran % (Auto) 0.5 H (0.0-0.4) % Neut % (Auto) 75.0 H (45-73) % Lymph % (Auto) 17.2 L (20-40) % Geary % (Auto) 7.2 (2-11) % Eos % (Auto) 0.0 (0-4) % Baso % (Auto) 0.1 (0-2) % Lymph # (Auto) 1.5 (1.2-4.9) X10*3/uL Geary # (Auto) 0.6 (0.1-1.2) X10*3/uL Eos # (Auto) 0.0 (0.0-0.4) X10*3/uL Baso # (Auto) 0.0 (0.0-0.2) X10*3/uL Abs Immat Gran (auto) 0.04 H (0.00-0.03) X10*3/uL Absolute Neuts (auto) 6.4 (2.0-8.3) x10*3/uL Absolute Nucleated RBC 0.000 (0.0-0.012) X10*3/uL Nucleated RBC % (auto) 0.0 (0.0-0.2) /100WBC VBG pH 7.34 (7.32-7.43) VBG pCO2 53 mmHg VBG pO2 45 mmHg VBG HCO3 29 H (22-26) mmol/L VBG O2 Saturation 76.0 % VBG Base Excess 2.5 mmol/L Sodium 142 (135-145) mmol/L Potassium 4.1 (3.3-5.1) mmol/L Chloride 109 H (96-108) mmol/L Carbon Dioxide 26 (22-29) mmol/L Anion Gap 11 L (12-20) BUN 13 (9-16) mg/dL Creatinine 1.43 H (0.5-1.4) mg/dL Estim Creat Clear Calc 67.6 Estimated GFR 51 Random Glucose 68 (60-115) mg/dL Calcium 8.9 (8.4-10.2) mg/dL Magnesium 2.4 (1.6-2.6) mg/dL Total Bilirubin 0.4 (0.0-1.0) mg/dL Direct Bilirubin 0.2 (0.0-0.5) mg/dL AST 13 (5-37) U/L ALT 9 (0-40) U/L Alkaline Phosphatase 62 (39-117) U/L Ammonia 48 (13-55) umol/L Total Creatine Kinase 107 (38-174) U/L Total Protein 7.1 (6.5-8.0) g/dL Albumin 4.2 (3.5-5.0) g/dL TSH 0.69 (0.32-4.0) uIU/mL Level [place] 0.87 (0.60-1.20) mmol/L Ethyl Alcohol < 10 mg/dL COVID-19 ([facility]AKA) Negative (Negative) COVID-19 Clin Com See Note Independent Interpretation I performed an independent interpretation of an: EKG Interpretation: Rate: 60 Rhythm: NSR Exline: normal Normal P waves. Normal BEVERLY. Normal QRS complex. ST T wave : no MANPREET, artifact noted qTC: 378 prior studies: no acute ischemia The study has been interpreted contemporaneously by me. . Independent Historian Clinical information obtained from an independent historian. History obtained from or confirmed by: EMS External Record Review External record reviewed: Inpatient record Discharge Plan Discharge Clinical Impression: Schizoaffective disorder, depressive type, Acute dehydration Patient Disposition: Still a Patient Prescriptions: No Action docusate sodium 100 mg capsule 200 mg PO BID Qty: 120 3RF metformin 500 mg tablet extended release 24 hr 500 mg PO DAILY Qty: 30 1RF omeprazole 20 mg capsule,delayed release(DR/EC) 20 mg PO BID@0630,1630 30 Days Qty: 60 0RF sennosides [Senna Lax] 8.6 mg tablet 17.2 mg PO BEDTIME Qty: 90 3RF clozapine 100 mg Tablet 300 mg PO BEDTIME Qty: 45 0RF lithium carbonate 300 mg Capsule 600 mg PO BEDTIME Qty: 60 0RF lorazepam 1 mg Tablet 1 mg PO TID Qty: 90 0RF tamsulosin 0.4 mg capsule 0.4 mg PO QPM (DME) lancets [FreeStyle Lancets] 28 gauge misc See Rx Instructions .ROUTE .COMPLEX Rx Instructions: TEST BLOOD SUGAR ONCE DAILY sertraline 50 mg Tablet 150 mg PO DAILY Qty: 0 0RF Prilosec 2.5 mg susp,delayed release for recon 10 mg PO DAILY Interventions: [place]-Suicide Risk Severity Scale Last Done: 04/16/23 18:26
--- NOTE | 2023-04-16 18:28 | PC.NURSE ---
pt changed to hospital gown with security at bedside. pt alert and oriented. affect is flat, pt responds with short answers to questions and does not elaborate on health history. denies SI/HI.
[2023-04-16 18:30] LABS: MANUAL DIFF FLAG NO
[2023-04-16 18:31] LABS: Basophils Percent Auto 0.1 % (0-2); Hematocrit 40.9 % (42.0-52.0); Hemoglobin 12.9 g/dl (14.0-18.0); Imm Gran Abs Auto 0.04 X10*3/uL (0.00-0.03); Imm Gran Pct Auto 0.5 % (0.0-0.4); Lymphocytes Absolute Auto 1.5 X10*3/uL (1.2-4.9); Lymphocytes Percent Auto 17.2 % (20-40); Mean Corpuscular HGB Conc 31.5 g/dl (31.0-36.0); Mean Corpuscular Hemoglobin 28.6 pg (27.0-33.0); Mean Corpuscular Volume 90.7 fL (80.0-98.0); Mean Platelet Volume 10.8 fL (9.4-12.4); Monocytes Absolute Auto 0.6 X10*3/uL (0.1-1.2); Monocytes Percent Auto 7.2 % (2-11); Neutrophils Absolute Auto 6.4 x10*3/uL (2.0-8.3); Platelet Count 146 X10*3/uL (160-400); Red Blood Count 4.51 X10*6/uL (4.60-5.80); Red Cell Distribution Width 13.3 % (11.0-16.0); White Blood Count 8.6 X10*3/uL (4.8-10.8)
[2023-04-16 18:35] LABS: VBG Base Excess 2.5 mmol/L; VBG HCO3 29 mmol/L (22-26); VBG pCO2 53 mmHg; VBG pH 7.34 (7.32-7.43); VBG pO2 45 mmHg
[2023-04-16 18:35] LABS: Venous Blood Gas Refer to POC result
[2023-04-16 18:39] LABS: Ammonia 48 umol/L (13-55)
[2023-04-16 18:40] LABS: Lithium 0.87 mmol/L (0.60-1.20)
[2023-04-16 18:47] LABS: Alanine Aminotransferase 9 U/L (0-40); Albumin Level 4.2 g/dL (3.5-5.0); Alkaline Phosphatase 62 U/L (39-117); Anion Gap 11 (12-20); Aspartate Amino Transferase 13 U/L (5-37); Bilirubin Direct 0.2 mg/dL (0.0-0.5); Bilirubin Total 0.4 mg/dL (0.0-1.0); Blood Urea Nitrogen 13 mg/dL (9-16); Calcium 8.9 mg/dL (8.4-10.2); Carbon Dioxide 26 mmol/L (22-29); Chloride 109 mmol/L (96-108); Creatinine Clr Calc Pharmacy 67.6; Estimated Glomerular Filt Rate 51; Ethanol < 10 mg/dL; Glucose Random 68 mg/dL (60-115); Magnesium 2.4 mg/dL (1.6-2.6); Potassium 4.1 mmol/L (3.3-5.1); Sodium 142 mmol/L (135-145); Total Protein 7.1 g/dL (6.5-8.0)
[2023-04-16 18:51] LABS: COVID-19 Test Negative (Negative); IDNOW Serial# 08D9AD1C
[2023-04-16 19:08] LABS: TSH reflex Free T4 0.69 uIU/mL (0.32-4.0)
[2023-04-16] MEDS: 0.9 % Sodium Chloride 1,000 ML 999 ML IV (19:26)
[2023-04-16 20:15] VITALS: BP 131/71; PULSE 66; RESP 12; TEMP 36.7; O2SAT 99
[2023-04-16 20:58] LABS: Appearance Urine Clear; Color Urine Yellow; Glucose Urine UA Negative (Negative); Leukocyte Esterase Urine Negative (Negative); Nitrite Urine Negative (Negative); Specific Gravity - Urine 1.015 (1.005-1.025); Urine Blood Negative (Negative); Urine Ketones Negative (Negative); Urine Protein Negative (Neg-Trace)
[2023-04-16 21:05] LABS: Amphetamine Screen Urine Not Detected (Not Detect); Barbiturates, Urine Not Detected (Not Detect); Benzodiazepines Screen Urine Not Detected (Not Detect); Cannabinoid Screen Urine Not Detected (Not Detect); Cocaine Screen Urine Not Detected (Not Detect); Fentanyl, urine Not Detected (Not Detect); Opiate Screen Urine Not Detected (Not Detect); Phencyclidine Screen Urine Not Detected (Not Detect)
[2023-04-17 00:07] LABS: Glucose, Whole Blood 85 mg/dL (60-115)
--- NOTE | 2023-04-17 00:27 | PC.NURSE ---
this rn assumed care of pt @0160. pt sleeping at this time. respirations non labored pt easily wakes to name. 1:[address]
--- NOTE | 2023-04-17 00:51 | PC.NURSE ---
this rn and dr stubbs attempted to perform med rec on pt. medication card pt present to ED with did not match doses previously filled from pharmacy. unable to complete med rec. international accountant aware
--- NOTE | 2023-04-17 04:10 | PC.NURSE ---
pt boosted up in bed. provided with warm pillow. pt affect flat
[2023-04-17 05:45] VITALS: BP 127/78; PULSE 73; RESP 17; TEMP 36.4; O2SAT 97
[2023-04-17 07:09] VITALS: BP 139/77; PULSE 76; RESP 16; TEMP 36.5; O2SAT 93
[2023-04-17 07:15] LABS: Glucose, Whole Blood 90 mg/dL (60-115)
[2023-04-17 07:23] LABS: Anion Gap 10 (12-20); Blood Urea Nitrogen 12 mg/dL (9-16); Calcium 8.8 mg/dL (8.4-10.2); Carbon Dioxide 28 mmol/L (22-29); Chloride 111 mmol/L (96-108); Creatinine Clr Calc Pharmacy 70.6; Estimated Glomerular Filt Rate 53; Glucose Random 93 mg/dL (60-115); Potassium 3.9 mmol/L (3.3-5.1); Sodium 145 mmol/L (135-145)
--- NOTE | 2023-04-17 07:30 | PC.NURSE ---
Pt sleeping at this time, respirations even and unlabored. Patient observer within arms reach.
--- NOTE | 2023-04-17 07:49 | PC.NURSE ---
Called pharmacy to complete med rec for this pt. hospital pharmacy technician will do once all admits are done.
--- NOTE | 2023-04-17 10:19 | PHA.MEDREC ---
Pharmacy Consult ? Medication Reconciliation Pharmacy has completed the medication reconciliation. Spoke to patient. OF NOTE: patient took last dose of clozaril last night, and takes lithium BID.
--- NOTE | 2023-04-17 12:21 | MHC.CM.ED ---
Received voicemail from Carissa at [facility] stating patient is active with their agency. Left voicemail explaining patient is still waiting to be seen by the Care Team via telephone at [phone] ext [phone]. Continue to monitor for d/c needs.
[2023-04-17 14:00] VITALS: BP 131/67; PULSE 79; RESP 18; TEMP 36.8; O2SAT 97
--- NOTE | 2023-04-17 14:48 | PC.NURSE ---
Alert but slow to respond, denies SI/Hi or any pain or discomfort
--- NOTE | 2023-04-17 15:05 | MHC.CARE ---
Patient evaluated by the CARE Team, disposition inpatient psychiatric care.
--- NOTE | 2023-04-17 16:00 | PC.NURSE ---
Report given to POD RN
[2023-04-17 16:12] VITALS: BP 143/79; PULSE 76; RESP 16; TEMP 36.9; O2SAT 94
--- NOTE | 2023-04-17 16:27 | PC.NURSE ---
Assumed care of patient at 1625, patient moved from main ER to 3. This RN removed IV from LFA. Pt denies pain, SI/HI. Pt is now resting calmly in bed, offers no complaints. RR even and unlabored
[2023-04-17 21:20] VITALS: BP 150/73; PULSE 76; RESP 18; TEMP 36.7; O2SAT 98
[2023-04-17] MEDS: Sertraline HCL 100 MG TABLET PO (21:59)
[2023-04-17] MEDS: LORazepam 1 MG TABLET PO (21:59)
[2023-04-17] MEDS: Docusate Sodium 100 MG CAPSULE 200 MG PO (21:59)
[2023-04-17] MEDS: Lithium Carbonate 300 MG CAPSULE PO (21:59)
[2023-04-17] MEDS: Tamsulosin HCL 0.4 MG CAPSULE PO (21:59)
[2023-04-17] MEDS: cloZAPine 100 MG TABLET 300 MG PO (21:59)
[2023-04-17] MEDS: Sennosides 8.6 MG TABLET 17.2 MG PO (21:59)
[2023-04-17 22:38] VITALS: BMI 30.4
--- NOTE | 2023-04-17 22:59 | PC.ADMIT ---
Patient is a 57 year old male admitted from [facility] on 04/17/23 at 2120 on a CV for increased lethargy and decompensation. Patient recently admitted to [facility] in February 2023 and received ECT. His VNA at home report that he is increasingly tired, and unable to care for himself, and worried that he may be entering another cycle requiring ECT. Patient is appearing flat, slow to answer questions, and minimal responses. Patient is known to be med compliant, and sometimes refuses to take 2pm ativan.? Upon arrival to the unit, patient appears flat, avoiding eye contact, and slow to respond or declining to answer. Patient appears anxious., bouncing legs up and down constantly while talking. Cooperative with vital signs, skin check, and signing DAUQAN?s. Patient has easier time answering yes or no questions. Patient denies SI/HI/AH/VH.
[2023-04-18] MEDS: Omeprazole 20 MG CAPSULE.DR PO ×2 (05:52→16:33)
[2023-04-18 08:11] VITALS: BP 141/66; PULSE 80; RESP 16; TEMP 36.2; O2SAT 97
[2023-04-18] MEDS: Lithium Carbonate 300 MG CAPSULE PO ×2 (08:22→19:36)
[2023-04-18] MEDS: Docusate Sodium 100 MG CAPSULE 200 MG PO ×2 (08:22→19:36)
[2023-04-18] MEDS: LORazepam 1 MG TABLET PO ×3 (08:22→19:36)
[2023-04-18] MEDS: Sertraline HCL 100 MG TABLET PO ×2 (08:22→19:36)
[2023-04-18] MEDS: metFORMIN HCl ER 500 MG TAB.ER.24H PO (08:22)
[2023-04-18 08:48] LABS: Glucose, Whole Blood 100 mg/dL (60-115)
--- NOTE | 2023-04-18 13:54 | HO.PSYADMNOT ---
HPI Date of Service: 04/18/23 Chief Complaint: Depression Sources of Information: patient interviewed, chart reviewed and crisis/core team assessment reviewed HPI Subjective Notes: [place] Warning and Conditional Voluntary Healthcare Proxy: No Guardianship: No Medical Problems Affecting Mental Status: No Narrative: 57 yo male, history of schizoaffective disorder, bipolar type, presents with lethargy/decompensation/anergy/depression, possibly catatonia. Hx of ECT which is reported stopped due to feedback from his father. VNA reports regression however med compliant. Iyanbito level WNL. Pt seen x 3. He is slow to respond to questions, offering minimal responses. He does deny SI/HI. He states, I feel feverish . T 97.1 Recent discharge 03/14/24 with a similiar presentation, refusal of ECT. Swallow eval last admit- NDD3, chopped/adv solids, thin liquids, pills crushed in puree, total supervision for eating and meds. Continued. Past Psychiatric History: Inpatient: multiple in the past. h/o ECT for catatonia. OP: [facility] Past medication trials: clozaril, ativan, sertraline, olanzapine. Medical Evaluation Reviewed: Yes REPLACED BY [facility] Medical History Mild sleep apnea Nocturnal hypoxia Routine medical exam Joint inflammation of right hand and wrist Status post fall Adult general medical exam Screening for colon cancer Screening for prostate cancer Cough Schizophrenia, catatonic BPH (benign prostatic hyperplasia) Essential (primary) hypertension Diabetes mellitus Surgical History History of colonoscopy History of tooth extraction History of root canal procedure Family History: unknown Social History: lives independently, works, drives. apartment in [place]. Substance History: no history Trauma History: unknown Diagnostics Vital Signs (24Hr): Vital Signs - 24 hr 04/17/23 14:00 04/17/23 16:12 04/17/23 21:20 Temperature 98.2 F 98.4 F 98.1 F Pulse Rate 79 76 76 Respiratory Rate 18 16 18 Blood Pressure 131/67 143/79 H 150/73 H Pulse Oximetry 97 94 98 Oxygen Delivery Method Room Air Room Air Room Air 04/18/23 08:11 Temperature 97.1 F Pulse Rate 80 Respiratory Rate 16 Blood Pressure 141/66 H Pulse Oximetry 97 Oxygen Delivery Method Room Air BMI result Body Mass Index 30.4 Labs 04/16/23 18:26 04/17/23 06:53 Labs: Laboratory Results - last 48 hr 04/16/23 04/16/23 04/16/23 18:25 18:26 18:28 WBC 8.6 RBC 4.51 L Hgb 12.9 L Hct 40.9 L MCV 90.7 MCH 28.6 MCHC 31.5 RDW 13.3 Plt Count 146 L MPV 10.8 Immature Gran % (Auto) 0.5 H Neut % (Auto) 75.0 H Lymph % (Auto) 17.2 L [place] % (Auto) 7.2 Eos % (Auto) 0.0 Baso % (Auto) 0.1 Lymph # (Auto) 1.5 [place] # (Auto) 0.6 Eos # (Auto) 0.0 Baso # (Auto) 0.0 Abs Immat Gran (auto) 0.04 H Absolute Neuts (auto) 6.4 Absolute Nucleated RBC 0.000 Nucleated RBC % (auto) 0.0 VBG pH 7.34 VBG pCO2 53 VBG pO2 45 VBG HCO3 29 H VBG O2 Saturation 76.0 VBG Base Excess 2.5 Sodium 142 Potassium 4.1 Chloride 109 H Carbon Dioxide 26 Anion Gap 11 L BUN 13 Creatinine 1.43 H Estim Creat Clear Calc 67.6 Estimated GFR 51 POC Glucose Random Glucose 68 Calcium 8.9 Magnesium 2.4 Total Bilirubin 0.4 Direct Bilirubin 0.2 AST 13 ALT 9 Alkaline Phosphatase 62 Ammonia 48 Total Creatine Kinase 107 Total Protein 7.1 Albumin 4.2 TSH 0.69 Urine Color Urine Appearance Urine pH Ur Specific [place] Urine Protein Urine Glucose (UA) Urine Ketones Urine Blood Urine Nitrite Ur Leukocyte Esterase Urine Opiates Screen Urine Fentanyl Screen Ur Barbiturates Screen Ur Phencyclidine Scrn Ur Amphetamines Screen U Benzodiazepines Scrn Iyanbito 0.87 Urine Cocaine Screen U Marijuana (THC) Screen Ethyl Alcohol < 10 COVID-19 ([facility]AK[facility]) Negative COVID-19 Clin Com See Note 04/16/23 04/16/23 04/17/23 20:50 23:57 06:53 WBC RBC Hgb Hct MCV MCH MCHC RDW Plt Count MPV Immature Gran % (Auto) Neut % (Auto) Lymph % (Auto) [place] % (Auto) Eos % (Auto) Baso % (Auto) Lymph # (Auto) [place] # (Auto) Eos # (Auto) Baso # (Auto) Abs Immat Gran (auto) Absolute Neuts (auto) Absolute Nucleated RBC Nucleated RBC % (auto) VBG pH VBG pCO2 VBG pO2 VBG HCO3 VBG O2 Saturation VBG Base Excess Sodium 145 Potassium 3.9 Chloride 111 H Carbon Dioxide 28 Anion Gap 10 L BUN 12 Creatinine 1.37 Estim Creat Clear Calc 70.6 Estimated GFR 53 POC Glucose 85 Random Glucose 93 Calcium 8.8 Magnesium Total Bilirubin Direct Bilirubin AST ALT Alkaline Phosphatase Ammonia Total Creatine Kinase Total Protein Albumin TSH Urine Color Yellow Urine Appearance Clear Urine pH 6.0 Ur Specific [place] 1.015 Urine Protein Negative Urine Glucose (UA) Negative Urine Ketones Negative Urine Blood Negative Urine Nitrite Negative Ur Leukocyte Esterase Negative Urine Opiates Screen Not Detected Urine Fentanyl Screen Not Detected Ur Barbiturates Screen Not Detected Ur Phencyclidine Scrn Not Detected Ur Amphetamines Screen Not Detected U Benzodiazepines Scrn Not Detected [place] Urine Cocaine Screen Not Detected U Marijuana (THC) Screen Not Detected Ethyl Alcohol COVID-19 ([facility]AK[facility]) [employer] 04/17/23 04/18/23 07:06 08:44 WBC RBC Hgb Hct MCV MCH MCHC RDW Plt Count MPV Immature Gran % (Auto) Neut % (Auto) Lymph % (Auto) [place] % (Auto) Eos % (Auto) Baso % (Auto) Lymph # (Auto) [place] # (Auto) Eos # (Auto) Baso # (Auto) Abs Immat Gran (auto) Absolute Neuts (auto) Absolute Nucleated RBC Nucleated RBC % (auto) VBG pH VBG pCO2 VBG pO2 VBG HCO3 VBG O2 Saturation VBG Base Excess Sodium Potassium Chloride Carbon Dioxide Anion Gap BUN Creatinine Estim Creat Clear Calc Estimated GFR POC Glucose 90 100 Random Glucose Calcium Magnesium Total Bilirubin Direct Bilirubin AST ALT Alkaline Phosphatase Ammonia Total Creatine Kinase Total Protein Albumin TSH Urine Color Urine Appearance Urine pH Ur Specific [place] Urine Protein Urine Glucose (UA) Urine Ketones Urine Blood Urine Nitrite Ur Leukocyte Esterase Urine Opiates Screen Urine Fentanyl Screen Ur Barbiturates Screen Ur Phencyclidine Scrn Ur Amphetamines Screen U Benzodiazepines Scrn [place] Urine Cocaine Screen U Marijuana (THC) Screen Ethyl Alcohol COVID-19 ([facility]AKA) COVID-19 [employer] Meds/Allergies Meds Home Medications Medication Instructions Recorded Confirmed Type tamsulosin 0.4 mg capsule 0.4 mg PO QPM 01/04/23 04/17/23 History lithium carbonate 300 mg capsule 300 mg PO BID 04/17/23 04/17/23 History sertraline 100 mg tablet 100 mg PO BID 04/17/23 04/17/23 History Allergies Allergies Allergy/AdvReac Type Severity Reaction Status Date / Time No Known Allergies [NKA] Allergy Unknown NONE Verified 04/13/23 14:27 Mental Status Exam Mental Status Exam Patient Appearance: Fatigued Patient Orientation: Person and Place Level of Consciousness: Awake, Alert and Follows Commands Patient Behavior: Guarded, Passive, Suspicious, Avoidant, Isolative and Good Eye Contact Mood Description: Constricted Affect Description: Constricted Patient Cognition Impaired: No Ability to Follow Directions: Fair Speech Pattern: Impoverished, Spontaneous Speech, Soft-Spoken, Delayed and Long Pauses Memory Description: Episodic Impaired Hallucinations: None (denies) Delusions: Paranoid Ideation Perceptual Disturbances: Depersonalization Thought Process: Rumination Thought Content: positive for Perseveration Depressive Symptoms: Increased Fatigue and Loss of Energy Judgement: Poor Assessment & Plan Assessment & Plan (1) Schizoaffective disorder, depressive type: Status: Acute Code(s): F25.1 - Schizoaffective disorder, depressive type Plan 57 yo male, to ER secondary to decompensation and lethargy. Hx of catatonia. Compliant with medicine in the community however his team reports decline prior to admission. Plan: Clozapine level. B12,Folate, Iron Profile Continue swallow eval recommendations NDD3, chopped/adv solids, think liquids, meds crushed in puree and total supervision meals/meds. Collateral contact- OP team, residence, family ECT consult if pt will agree. It has been effective for pt in the past. Patient educated on: therapeutic strategies Informed Consent: further education needed Reason for continued inpatient stay Substantial Risk for: rapid decompensation Statement Statement: I have reviewed the history and physical and performed a pertinent examination on my patient. No changes have occurred unless specified. If the History and Physical was not performed prior to admission, the Hospitalist's service will be consulted for completing the admission physical. Time Spent With Patient Time: Total time managing care of this patient today ____ minutes.
--- NOTE | 2023-04-18 16:57 | MHC.CM.ED ---
Received telephone call from Carissa at [facility]. Pt is active with them. She was updated that patient was admitted to [facility]. Did not mention M5. Pt is active with agency. May need to be called when patient discharges home ([phone] ext [phone]).
[2023-04-18 18:00] VITALS: BP 120/70; PULSE 71; RESP 16; TEMP 36.2; O2SAT 98
[2023-04-18] MEDS: Tamsulosin HCL 0.4 MG CAPSULE PO (19:36)
[2023-04-18] MEDS: Sennosides 8.6 MG TABLET 17.2 MG PO (19:36)
[2023-04-18] MEDS: cloZAPine 100 MG TABLET 300 MG PO (19:36)
[2023-04-19] MEDS: Omeprazole 20 MG CAPSULE.DR PO ×2 (05:48→16:34)
[2023-04-19 08:00] VITALS: BP 143/78; PULSE 71; RESP 16; TEMP 36.1; O2SAT 96
[2023-04-19 08:43] LABS: Glucose, Whole Blood 106 mg/dL (60-115)
[2023-04-19] MEDS: metFORMIN HCl ER 500 MG TAB.ER.24H PO (09:24)
[2023-04-19] MEDS: Sertraline HCL 100 MG TABLET PO ×2 (09:24→20:41)
[2023-04-19] MEDS: LORazepam 1 MG TABLET PO ×3 (09:24→20:41)
[2023-04-19] MEDS: Lithium Carbonate 300 MG CAPSULE PO ×2 (09:24→20:41)
[2023-04-19] MEDS: Docusate Sodium 100 MG CAPSULE 200 MG PO ×2 (09:24→20:41)
[2023-04-19 10:22] LABS: Iron 71 mcg/dL (45-160); Magnesium 2.1 mg/dL (1.6-2.6); Percent Iron Saturation 31 % (15-50); Total Iron Binding Capacity 230 mcg/dL (228-428); Unsaturated Iron Binding 159 ug/dL
[2023-04-19 10:55] LABS: Folate 11.6 ng/mL (> or = 4.0); Vitamin B12 328 pg/mL (200-900)
--- NOTE | 2023-04-19 14:54 | MHC.SL.SWA ---
Dysphasia Diet Status: NO CHANGE Liquid Consistency and Strategies for Safe Swallow: Liquid Intake Recommendation: Thin Solid Food Consistency: Dietary Recommendations: Chopped/Advanced (NDD3) Additional Modifications to Solid Foods: Moisten w/ sauce/gravy Oral Medication Intake: Whole with Puree Please contact the pharmacy regarding appropriate crushable or liquid drug formulations that are available whenever modified delivery is recommended. Compensatory Strategies and Precautions to be Taken for Safe Swallow: Sitting Upright (90 deg) Small Bites and Sips Alternate Liquids/Solids Rate of Ingestion Change Supervision While Eating and Drinking for Safe Swallow: Total Supervision (1:1) Foods to Avoid: Hard, dry, or sticky foods; mixed textures (i.e. thin broth with solid ingredients) Swallowing Recommended Treatments: Recommendation for Speech: Inpatient Speech Therapy Comment: Patient seen by [employer] w/ chopped tray for lunch. Recommend patient continue with chopped solids and thin liquids w/ supervision at this time. Patient observed to eat multiple bites consecutively then take a sip of liquid and present w/ prolonged cough. Recommend pills whole in puree. Pt requires 1-1 supervision/cuing. Cues: take small bites and sips, chew well, slow rate of ingestion, alternate solids and liquids, wait to introduce new bites until oral cavity is cleared. Patient reportedly eats regular solids at home and takes pills whole w/ liquid. Recommend that patient trial regular solid tray w/ [employer]. Home Specialist Clinican/Clinical Fellow: No Supervisory Statement: I have reviewed and agree with the student/clinical fellow's documentation: N/A Speech Language Pathologist: Lilliana Montenegro M.A. [facility]-[employer] [employer]
[2023-04-19 18:45] VITALS: BP 127/78; PULSE 68; RESP 16; TEMP 36.4; O2SAT 97
--- NOTE | 2023-04-19 19:06 | HO.PSYCHPN ---
Subjective Subjective Date of Service: 04/19/23 Reason For Visit: Depression Subjective Notes: Conditional Voluntary Healthcare Proxy: No Guardianship: No Medical Problems Affecting Mental Status: No Interim History: Pt willing to meet and participatory Reports depression. No interest in ECT which has helped in the past. Identifies major issue as when at home having difficulty swallowing-fears choking-recently vomited cereal and milk. Agrees to med adjustment Repeat swallow eval done with pt. Medication Compliance: Yes Side effects from medications: No Attending Groups: No Review of Systems Acute medical concerns: No Medical Review of Systems: unchanged Review of Systems Reports dysphagia Gastrointestinal: Reports dysphagia Mental Status Exam Mental Status Exam Patient Appearance: Fatigued Patient Orientation: Person and Place Level of Consciousness: Awake, Alert and Follows Commands Patient Behavior: Guarded, Passive, Suspicious, Avoidant, Isolative and Good Eye Contact Mood Description: Constricted Affect Description: Constricted Patient Cognition Impaired: No Ability to Follow Directions: Fair Speech Pattern: Impoverished, Spontaneous Speech, Soft-Spoken, Delayed and Long Pauses Memory Description: Episodic Impaired Hallucinations: None (denies) Delusions: Paranoid Ideation Perceptual Disturbances: Depersonalization Thought Process: Rumination Thought Content: positive for Perseveration Depressive Symptoms: Increased Fatigue and Loss of Energy Judgement: Poor Diagnostics Vital Signs (24Hr): Vital Signs - 24 hr 04/19/23 08:00 Temperature 97 F Pulse Rate 71 Respiratory Rate 16 Blood Pressure 143/78 H Pulse Oximetry 96 Oxygen Delivery Method Room Air BMI result Body Mass Index 30.4 Labs 04/16/23 18:26 04/17/23 06:53 Labs: Laboratory Results - last 48 hr 04/18/23 04/19/23 04/19/23 08:44 08:38 09:53 POC Glucose 100 106 Magnesium 2.1 Iron 71 TIBC 230 % Saturation 31 Unsat Iron Binding 159 Vitamin B12 328 Folate 11.6 Medications Medications Current Medications Acetaminophen (Acetaminophen 325 Mg Tablet) 650 mg PO Q6H PRN PRN Reason: Headache/Pain Mild Scale (1-3) Al Hydroxide/Mg Hydroxide (Magnesium Hydrox/Alum Hydrox 30 Ml Oral.Susp) 30 ml PO Q6H PRN PRN Reason: Heartburn/Nausea Clozapine (Clozapine 100 Mg Tablet) 300 mg PO BEDTIME KRISTIN Last Admin: 04/18/23 19:36 Dose: 300 mg Docusate Sodium (Docusate Sodium 100 Mg Capsule) 200 mg PO BID [facility] Last Admin: 04/19/23 09:24 Dose: 200 mg Hydroxyzine HCl (Hydroxyzine Hcl 25 Mg Tablet) 25 mg PO Q6H PRN PRN Reason: Anxiety [place] Carbonate ([place] Carbonate 300 Mg Capsule) 300 mg PO BID [facility] Last Admin: 04/19/23 09:24 Dose: 300 mg Lorazepam (Lorazepam 1 Mg Tablet) 1 mg PO TID [facility] Last Admin: 04/19/23 14:48 Dose: 1 mg Magnesium Hydroxide (Milk Of Magnesia 30 Ml Oral.Susp) 30 ml PO DAILY PRN PRN Reason: Constipation Metformin HCl (Metformin Hcl Er 500 Mg Tab.Er.24h) 500 mg PO DAILY [facility] Last Admin: 04/19/23 09:24 Dose: 500 mg Omeprazole (Omeprazole 20 Mg Capsule.Dr) 20 mg PO BID@0630,1630 [facility] Last Admin: 04/19/23 16:34 Dose: 20 mg Senna (Sennosides 8.6 Mg Tablet) 17.2 mg PO BEDTIME [facility] Last Admin: 04/18/23 19:36 Dose: 17.2 mg Sertraline HCl (Sertraline Hcl 100 Mg Tablet) 100 mg PO BID [facility] Last Admin: 04/19/23 09:24 Dose: 100 mg Tamsulosin HCl (Tamsulosin Hcl 0.4 Mg Capsule) 0.4 mg PO BEDTIME [facility] Last Admin: 04/18/23 19:36 Dose: 0.4 mg Trazodone HCl (Trazodone Hcl 50 Mg Tablet) 50 mg PO BEDTIME MRX1 PRN PRN Reason: Insomnia Allergies Allergies Allergy/AdvReac Type Severity Reaction Status Date / Time No Known Allergies [NKA] Allergy Unknown NONE Verified 04/13/23 14:27 Assessment & Plan Assessment & Plan (1) Schizoaffective disorder, depressive type: Status: Acute Code(s): F25.1 - Schizoaffective disorder, depressive type Plan 57 yo male, to ER secondary to decompensation and lethargy. Hx of catatonia. Compliant with medicine in the community however his team reports decline prior to admission. Plan: Clozapine level. B12,Folate, Iron Profile Continue swallow eval recommendations NDD3, chopped/adv solids, think liquids, meds crushed in puree and total supervision meals/meds. Collateral contact- OP team, residence, family ECT consult if pt will agree. It has been effective for pt in the past. 04/19/23- Swallow re-eval appreciated. Pt considering medicine changes Reports swallowing is his major concern. Patient educated on: therapeutic strategies and medical condition Informed Consent: further education needed Reason for continued inpatient stay Substantial Risk for: rapid decompensation and med/psych decompensation Time Spent With Patient Time: Total time managing care of this patient today ____ minutes.
[2023-04-19] MEDS: Sennosides 8.6 MG TABLET 17.2 MG PO (20:41)
[2023-04-19] MEDS: cloZAPine 100 MG TABLET 300 MG PO (20:41)
[2023-04-19] MEDS: Tamsulosin HCL 0.4 MG CAPSULE PO (20:41)
[2023-04-20] MEDS: Omeprazole 20 MG CAPSULE.DR PO ×2 (06:24→16:42)
[2023-04-20 08:00] VITALS: BP 129/85; PULSE 76; RESP 16; TEMP 36.2; O2SAT 95
[2023-04-20 08:12] LABS: Glucose, Whole Blood 96 mg/dL (60-115)
[2023-04-20] MEDS: Sertraline HCL 100 MG TABLET PO ×2 (08:55→19:56)
[2023-04-20] MEDS: LORazepam 1 MG TABLET PO ×3 (08:55→19:55)
[2023-04-20] MEDS: Docusate Sodium 100 MG CAPSULE 200 MG PO ×2 (08:55→19:56)
[2023-04-20] MEDS: Lithium Carbonate 300 MG CAPSULE PO ×2 (08:55→19:56)
[2023-04-20] MEDS: metFORMIN HCl ER 500 MG TAB.ER.24H PO (08:55)
[2023-04-20 11:42] VITALS: BMI 32.0
--- NOTE | 2023-04-20 15:11 | MHC.SL.SWA ---
Speech Pathologist Impression: Risk of Aspiration Due to: Dysphasia Diet Status: Recommend UPGRADE diet to Regular with THIN liquids, pills whole with liquid. Recommend periodic supervision/check ins during meal as patient has history of packing mouth/choking episodes, and may need reminders. Liquid Consistency and Strategies for Safe Swallow: Liquid Intake Recommendation: Thin Liquid Intake Strategies: Solid Food Consistency: Dietary Recommendations: Regular Additional Modifications to Solid Foods: Monitor patient for taking small, reasonable bites of food per swallow~ patient with HX behaviorally packing mouth, adding more food/liquid to mouth before swallowing, and episodic choking when engaging in this behavior. Oral Medication Intake: Whole with Puree Please contact the pharmacy regarding appropriate crushable or liquid drug formulations that are available whenever modified delivery is recommended. Compensatory Strategies and Precautions to be Taken for Safe Swallow: Sitting Upright (90 deg) Small Bites and Sips Alternate Liquids/Solids Rate of Ingestion Change Supervision While Eating and Drinking for Safe Swallow: Intermittent Supervision Foods to Avoid: Hard, dry, or sticky foods Swallowing Recommended Treatments: Recommendation for Speech: Inpatient Speech Therapy Comment: Patient seen at lunch for trial with regular diet. [employer] had ordered regular burger to be added to ordered chopped Mac and cheese. In addition, tray had cup of black coffee, and a cupcake. [employer] brought tray to patient who was seated in community eating area, with several other patients present and eating lunch. [employer] introduced self and reason for presence at lunch, patient gave minimal acknowledgement verbally, but with tray present began to eat. Patient was observed eating the Mac and cheese, noted to take reasonable, individual bites, producing a mildly delayed oral phase due to mastication followed by timely swallow, with all aspects mostly wfl. Patient periodically took sips of coffee with all aspects of swallow WFL. Patient then took bites of burger, again taking individual bites, producing a timely oral phase, timely pharyngeal phase with swallow trigger present, no apparent oral residual after swallow. Throughout meal, patient evidenced a good pace to eating, had no incidents of packing mouth or taking more than one bite/mouthful per swallow. [employer] discussed patient with RN after observation, with RN expressing ? about requirement for 1-1 during meals. [employer] reported hx of mouth packing/choking incident at previous admit, and request this time for [employer] evaluation. Recommended periodic supervision/reminders as needed for this behavior. Recommend UPGRADE diet to Regular with THIN liquids, pills whole with liquid. As patient on least restrictive diet, will d/c services at this time. Please re-contact if any additional concerns arise. Frequency/Duration: Date Range for Service Req: Timeline to reassess: Body Care Manager Clinican/Clinical Fellow: No Supervisory Statement: I have reviewed and agree with the student/clinical fellow's documentation: N/A Speech Language Pathologist: Vicki Jane M.A., CCC-[facility] [employer]
--- NOTE | 2023-04-20 15:26 | P.PNPSI_ITS ---
Subjective Subjective Date of Service: 04/20/23 Reason For Visit: Depression Subjective Notes: Conditional Voluntary Healthcare Proxy: No Guardianship: No Medical Problems Affecting Mental Status: No Interim History: Pt resting in bed today. Alert, interactive. Reports eating/swallowing have improved. Feeling safe with milieu support while he eats. Agrees to further eval of swallowing issues. Discussed with team/Dr. Huerta, who knows pt well. Remains depressed, isolative, anergic. Medication Compliance: Yes Side effects from medications: No Attending Groups: No Review of Systems Acute medical concerns: No Medical Review of Systems: unchanged Review of Systems Reports dysphagia Gastrointestinal: Reports dysphagia Mental Status Exam Mental Status Exam Patient Appearance: Fatigued Patient Orientation: Person and Place Level of Consciousness: Awake, Alert and Follows Commands Patient Behavior: Guarded, Passive, Suspicious, Avoidant, Isolative and Good Eye Contact Mood Description: Constricted Affect Description: Constricted Patient Cognition Impaired: No Ability to Follow Directions: Fair Speech Pattern: Impoverished, Spontaneous Speech, Soft-Spoken, Delayed and Long Pauses Memory Description: Episodic Impaired Hallucinations: None (denies) Delusions: Paranoid Ideation Perceptual Disturbances: Depersonalization Thought Process: Rumination Thought Content: positive for Perseveration Depressive Symptoms: Increased Fatigue and Loss of Energy Judgement: Poor Diagnostics Vital Signs (24Hr): Vital Signs - 24 hr 04/19/23 18:45 04/20/23 08:00 Temperature 97.6 F 97.1 F Pulse Rate 68 76 Respiratory Rate 16 16 Blood Pressure 127/78 129/85 Pulse Oximetry 97 95 Oxygen Delivery Method Room Air Room Air BMI result Body Mass Index 32.0 Labs 04/16/23 18:26 04/17/23 06:53 Labs: Laboratory Results - last 48 hr 04/19/23 04/19/23 04/20/23 08:38 09:53 08:07 POC Glucose 106 96 Magnesium 2.1 Iron 71 TIBC 230 % Saturation 31 Unsat Iron Binding 159 Vitamin B12 328 Folate 11.6 Medications Medications Current Medications Acetaminophen (Acetaminophen 325 Mg Tablet) 650 mg PO Q6H PRN PRN Reason: Headache/Pain Mild Scale (1-3) Al Hydroxide/Mg Hydroxide (Magnesium Hydrox/Alum Hydrox 30 Ml Oral.Susp) 30 ml PO Q6H PRN PRN Reason: Heartburn/Nausea Clozapine (Clozapine 100 Mg Tablet) 300 mg PO BEDTIME KRISTIN Last Admin: 04/19/23 20:41 Dose: 300 mg Docusate Sodium (Docusate Sodium 100 Mg Capsule) 200 mg PO BID [facility] Last Admin: 04/20/23 08:55 Dose: 200 mg Hydroxyzine HCl (Hydroxyzine Hcl 25 Mg Tablet) 25 mg PO Q6H PRN PRN Reason: Anxiety [place] Carbonate ([place] Carbonate 300 Mg Capsule) 300 mg PO BID [facility] Last Admin: 04/20/23 08:55 Dose: 300 mg Lorazepam (Lorazepam 1 Mg Tablet) 1 mg PO TID [facility] Last Admin: 04/20/23 14:26 Dose: 1 mg Magnesium Hydroxide (Milk Of Magnesia 30 Ml Oral.Susp) 30 ml PO DAILY PRN PRN Reason: Constipation Metformin HCl (Metformin Hcl Er 500 Mg Tab.Er.24h) 500 mg PO DAILY [facility] Last Admin: 04/20/23 08:55 Dose: 500 mg Omeprazole (Omeprazole 20 Mg Capsule.Dr) 20 mg PO BID@0630,1630 [facility] Last Admin: 04/20/23 06:24 Dose: 20 mg Senna (Sennosides 8.6 Mg Tablet) 17.2 mg PO BEDTIME [facility] Last Admin: 04/19/23 20:41 Dose: 17.2 mg Sertraline HCl (Sertraline Hcl 100 Mg Tablet) 100 mg PO BID [facility] Last Admin: 04/20/23 08:55 Dose: 100 mg Tamsulosin HCl (Tamsulosin Hcl 0.4 Mg Capsule) 0.4 mg PO BEDTIME [facility] Last Admin: 04/19/23 20:41 Dose: 0.4 mg Trazodone HCl (Trazodone Hcl 50 Mg Tablet) 50 mg PO BEDTIME MRX1 PRN PRN Reason: Insomnia Allergies Allergies Allergy/AdvReac Type Severity Reaction Status Date / Time No Known Allergies [NKA] Allergy Unknown NONE Verified 04/13/23 14:27 Assessment & Plan Assessment & Plan (1) Schizoaffective disorder, depressive type: Status: Acute Code(s): F25.1 - Schizoaffective disorder, depressive type Plan 57 yo male, to ER secondary to decompensation and lethargy. Hx of catatonia. Compliant with medicine in the community however his team reports decline prior to admission. Plan: Clozapine level. B12,Folate, Iron Profile Continue swallow eval recommendations NDD3, chopped/adv solids, think liquids, meds crushed in puree and total supervision meals/meds. Collateral contact- OP team, residence, family ECT consult if pt will agree. It has been effective for pt in the past. 04/20/23 Continue current tx. Further swallow eval to be decided. Patient educated on: medication risk/benefits and therapeutic strategies Informed Consent: further education needed Reason for continued inpatient stay Substantial Risk for: rapid decompensation and med/psych decompensation Time Spent With Patient Time: Total time managing care of this patient today ____ minutes.
[2023-04-20 18:00] VITALS: BP 142/67; PULSE 73; RESP 18; TEMP 36.7; O2SAT 95
[2023-04-20] MEDS: Tamsulosin HCL 0.4 MG CAPSULE PO (19:56)
[2023-04-20] MEDS: Sennosides 8.6 MG TABLET 17.2 MG PO (19:57)
[2023-04-20] MEDS: cloZAPine 100 MG TABLET 300 MG PO (19:57)
[2023-04-20] MEDS: Milk of Magnesia 30 ML ORAL.SUSP PO (20:00)
[2023-04-21] MEDS: Omeprazole 20 MG CAPSULE.DR PO ×2 (06:05→16:55)
[2023-04-21 08:20] LABS: Glucose, Whole Blood 107 mg/dL (60-115)
[2023-04-21 08:31] VITALS: BP 109/48; PULSE 66; RESP 16; TEMP 36.6; O2SAT 98
[2023-04-21] MEDS: Lithium Carbonate 300 MG CAPSULE PO ×2 (08:37→20:37)
[2023-04-21] MEDS: Sertraline HCL 100 MG TABLET PO ×2 (08:37→20:38)
[2023-04-21] MEDS: metFORMIN HCl ER 500 MG TAB.ER.24H PO (08:37)
[2023-04-21] MEDS: LORazepam 1 MG TABLET PO ×3 (08:37→20:37)
[2023-04-21] MEDS: Docusate Sodium 100 MG CAPSULE 200 MG PO ×2 (08:37→20:36)
[2023-04-21] MEDS: Milk of Magnesia 30 ML ORAL.SUSP PO (09:59)
--- NOTE | 2023-04-21 15:27 | HO.PSYCHPN ---
Subjective Subjective Date of Service: 04/21/23 Reason For Visit: Depression Subjective Notes: Conditional Voluntary Healthcare Proxy: No Guardianship: No Medical Problems Affecting Mental Status: No Interim History: Pt has been upgraded for swallow eval to regular diet, thin liquids, pills whole with liquid during meal and with check ins during eating. Reports sx sialorrhea, atropine drops SL prn ordered. Pt not very talkative today, reports depressive sx, feeling cold. Trial of Abilify to agument regime initiated to assist with sx. mgt. Medication Compliance: Yes Side effects from medications: No Attending Groups: Intermittent Review of Systems Acute medical concerns: No Medical Review of Systems: unchanged Review of Systems Review of Systems reports feeling cold reports sialorrhea, especially at night. Yes all other systems are reviewed and are negative Mental Status Exam Mental Status Exam Patient Appearance: Fatigued Patient Orientation: Person and Place Level of Consciousness: Awake, Alert and Follows Commands Patient Behavior: Guarded, Passive, Suspicious, Avoidant, Isolative and Good Eye Contact Mood Description: Constricted Affect Description: Constricted Patient Cognition Impaired: No Ability to Follow Directions: Fair Speech Pattern: Impoverished, Spontaneous Speech, Soft-Spoken, Delayed and Long Pauses Memory Description: Episodic Impaired Hallucinations: None (denies) Delusions: Paranoid Ideation Perceptual Disturbances: Depersonalization Thought Process: Rumination Thought Content: positive for Perseveration Depressive Symptoms: Increased Fatigue and Loss of Energy Judgement: Poor Diagnostics Vital Signs (24Hr): Vital Signs - 24 hr 04/20/23 18:00 04/21/23 08:31 Temperature 98.0 F 97.9 F Pulse Rate 73 66 Respiratory Rate 18 16 Blood Pressure 142/67 H 109/48 L Pulse Oximetry 95 98 Oxygen Delivery Method Room Air Room Air BMI result Body Mass Index 32.0 Labs 04/16/23 18:26 04/17/23 06:53 Labs: Laboratory Results - last 48 hr 04/20/23 04/21/23 08:07 08:16 POC Glucose 96 107 Medications Medications Current Medications Acetaminophen (Acetaminophen 325 Mg Tablet) 650 mg PO Q6H PRN PRN Reason: Headache/Pain Mild Scale (1-3) Al Hydroxide/Mg Hydroxide (Magnesium Hydrox/Alum Hydrox 30 Ml Oral.Susp) 30 ml PO Q6H PRN PRN Reason: Heartburn/Nausea Clozapine (Clozapine 100 Mg Tablet) 300 mg PO BEDTIME [facility] Last Admin: 04/20/23 19:57 Dose: 300 mg Docusate Sodium (Docusate Sodium 100 Mg Capsule) 200 mg PO BID [facility] Last Admin: 04/21/23 08:37 Dose: 200 mg Hydroxyzine HCl (Hydroxyzine Hcl 25 Mg Tablet) 25 mg PO Q6H PRN PRN Reason: Anxiety [place] Carbonate ([place] Carbonate 300 Mg Capsule) 300 mg PO BID [facility] Last Admin: 04/21/23 08:37 Dose: 300 mg Lorazepam (Lorazepam 1 Mg Tablet) 1 mg PO TID [facility] Last Admin: 04/21/23 14:28 Dose: 1 mg Magnesium Hydroxide (Milk Of Magnesia 30 Ml Oral.Susp) 30 ml PO DAILY PRN PRN Reason: Constipation Last Admin: 04/21/23 09:59 Dose: 30 ml Metformin HCl (Metformin Hcl Er 500 Mg Tab.Er.24h) 500 mg PO DAILY [facility] Last Admin: 04/21/23 08:37 Dose: 500 mg Omeprazole (Omeprazole 20 Mg Capsule.Dr) 20 mg PO BID@0630,1630 [facility] Last Admin: 04/21/23 06:05 Dose: 20 mg Risperidone (Risperidone 0.5 Mg Tablet) 0.5 mg PO BID [facility] Senna (Sennosides 8.6 Mg Tablet) 17.2 mg PO BEDTIME [facility] Last Admin: 04/20/23 19:57 Dose: 17.2 mg Sertraline HCl (Sertraline Hcl 100 Mg Tablet) 100 mg PO BID [facility] Last Admin: 04/21/23 08:37 Dose: 100 mg Tamsulosin HCl (Tamsulosin Hcl 0.4 Mg Capsule) 0.4 mg PO BEDTIME [facility] Last Admin: 04/20/23 19:56 Dose: 0.4 mg Trazodone HCl (Trazodone Hcl 50 Mg Tablet) 50 mg PO BEDTIME MRX1 PRN PRN Reason: Insomnia Allergies Allergies Allergy/AdvReac Type Severity Reaction Status Date / Time No Known Allergies [NKA] Allergy Unknown NONE Verified 04/13/23 14:27 Assessment & Plan Assessment & Plan (1) Schizoaffective disorder, depressive type: Status: Acute Code(s): F25.1 - Schizoaffective disorder, depressive type Plan 57 yo male, to ER secondary to decompensation and lethargy. Hx of catatonia. Compliant with medicine in the community however his team reports decline prior to admission. Plan: Clozapine level. B12,Folate, Iron Profile Continue swallow eval recommendations NDD3, chopped/adv solids, think liquids, meds crushed in puree and total supervision meals/meds. Collateral contact- OP team, residence, family ECT consult if pt will agree. It has been effective for pt in the past. 04/20/23 Continue current tx. Further swallow eval to be decided. 04/21/23 Atropine opth drops SL 1 q4h prn sialorrhea sx Abilify 5 mg a.m. trial for augmentation of regime Informed Consent: further education needed Reason for continued inpatient stay Substantial Risk for: rapid decompensation Time Spent With Patient Time: Total time managing care of this patient today ____ minutes.
[2023-04-21 17:44] VITALS: BP 142/74; PULSE 75; RESP 16; TEMP 36.3; O2SAT 99
[2023-04-21] MEDS: cloZAPine 100 MG TABLET 300 MG PO (20:35)
[2023-04-21] MEDS: Tamsulosin HCL 0.4 MG CAPSULE PO (20:37)
[2023-04-21] MEDS: Sennosides 8.6 MG TABLET 17.2 MG PO (20:38)
[2023-04-22] MEDS: Omeprazole 20 MG CAPSULE.DR PO ×2 (06:08→17:20)
[2023-04-22 08:29] LABS: Glucose, Whole Blood 98 mg/dL (60-115)
[2023-04-22 08:30] VITALS: BP 149/73; PULSE 78; RESP 16; TEMP 36.2; O2SAT 100
[2023-04-22] MEDS: Docusate Sodium 100 MG CAPSULE 200 MG PO ×2 (08:52→20:41)
[2023-04-22] MEDS: Sertraline HCL 100 MG TABLET PO ×2 (08:53→20:41)
[2023-04-22] MEDS: Lithium Carbonate 300 MG CAPSULE PO ×2 (08:53→20:41)
[2023-04-22] MEDS: metFORMIN HCl ER 500 MG TAB.ER.24H PO (08:53)
[2023-04-22] MEDS: ARIPiprazole 5 MG TABLET PO (08:53)
[2023-04-22] MEDS: LORazepam 1 MG TABLET PO ×3 (08:53→20:41)
--- NOTE | 2023-04-22 12:05 | P.PNPSI_ITS ---
Subjective Subjective Date of Service: 04/22/23 Reason For Visit: Depression Interim History: Pt has not been pocketing food; he has been upgraded for swallow eval to regular diet, thin liquids, pills whole with liquid during meal and with check ins during eating. Reports sx sialorrhea, atropine drops SL prn ordered. Pt not very talkative today, reports depressive sx, feeling cold. Trial of Abilify to agument regime initiated to assist with sx. mgt. Medication Compliance: Yes Side effects from medications: No Review of Systems Acute medical concerns: No Medical Review of Systems: unchanged Review of Systems Review of Systems reports feeling cold reports sialorrhea, especially at night. Yes all other systems are reviewed and are negative and Unobtainable due to mental status Reports dysphagia Gastrointestinal: Reports dysphagia Mental Status Exam Mental Status Exam Patient Appearance: Fatigued Patient Orientation: Person and Place Level of Consciousness: Awake, Alert and Follows Commands Patient Behavior: Guarded, Passive, Suspicious, Avoidant, Isolative and Good Eye Contact Mood Description: Constricted Affect Description: Constricted Patient Cognition Impaired: No Ability to Follow Directions: Fair Speech Pattern: Impoverished, Spontaneous Speech, Soft-Spoken, Delayed and Long Pauses Memory Description: Episodic Impaired Thought Process: Intact Thought Content: positive for Intact Judgement: Fair Diagnostics Vital Signs (24Hr): Vital Signs - 24 hr 04/21/23 17:44 04/22/23 08:30 Temperature 97.3 F 97.2 F Pulse Rate 75 78 Respiratory Rate 16 16 Blood Pressure 142/74 H 149/73 H Pulse Oximetry 99 100 Oxygen Delivery Method Room Air Room Air BMI result Body Mass Index 32.0 Labs 04/16/23 18:26 04/17/23 06:53 Labs: Laboratory Results - last 48 hr 04/21/23 04/22/23 08:16 08:22 POC Glucose 107 98 Medications Medications Current Medications Acetaminophen (Acetaminophen 325 Mg Tablet) 650 mg PO Q6H PRN PRN Reason: Headache/Pain Mild Scale (1-3) Al Hydroxide/Mg Hydroxide (Magnesium Hydrox/Alum Hydrox 30 Ml Oral.Susp) 30 ml PO Q6H PRN PRN Reason: Heartburn/Nausea Aripiprazole (Aripiprazole 5 Mg Tablet) 5 mg PO DAILY [facility] Last Admin: 04/22/23 08:53 Dose: 5 mg Atropine Sulfate (Atropine Sulfate 1 % Ophth Mallorie 2 Ml Bottle) 1 drop SUBLINGUAL Q4H PRN PRN Reason: Sialorrhea Clozapine (Clozapine 100 Mg Tablet) 300 mg PO BEDTIME [facility] Last Admin: 04/21/23 20:35 Dose: 300 mg Docusate Sodium (Docusate Sodium 100 Mg Capsule) 200 mg PO BID [facility] [place] Last Admin: 04/22/23 08:52 Dose: 200 mg Hydroxyzine HCl (Hydroxyzine Hcl 25 Mg Tablet) 25 mg PO Q6H PRN PRN Reason: Anxiety [place]ora Carbonate (Flora Carbonate 300 Mg Capsule) 300 mg PO BID [facility] [place] Last Admin: 04/22/23 08:53 Dose: 300 mg Lorazepam (Lorazepam 1 Mg Tablet) 1 mg PO TID [facility] [place] Last Admin: 04/22/23 08:53 Dose: 1 mg Magnesium Hydroxide (Milk Of Magnesia 30 Ml Oral.Susp) 30 ml PO DAILY PRN PRN Reason: Constipation Last Admin: 04/21/23 09:59 Dose: 30 ml Metformin HCl (Metformin Hcl Er 500 Mg Tab.Er.24h) 500 mg PO DAILY [facility] [place] Last Admin: 04/22/23 08:53 Dose: 500 mg Omeprazole (Omeprazole 20 Mg Capsule.Dr) 20 mg PO BID@0630,1630 [facility] [place] Last Admin: 04/22/23 06:08 Dose: 20 mg Senna (Sennosides 8.6 Mg Tablet) 17.2 mg PO BEDTIME [facility] [place] Last Admin: 04/21/23 20:38 Dose: 17.2 mg Sertraline HCl (Sertraline Hcl 100 Mg Tablet) 100 mg PO BID [facility] [place] Last Admin: 04/22/23 08:53 Dose: 100 mg Tamsulosin HCl (Tamsulosin Hcl 0.4 Mg Capsule) 0.4 mg PO BEDTIME [facility] [place] Last Admin: 04/21/23 20:37 Dose: 0.4 mg Trazodone HCl (Trazodone Hcl 50 Mg Tablet) 50 mg PO BEDTIME MRX1 PRN PRN Reason: Insomnia Allergies Allergies Allergy/AdvReac Type Severity Reaction Status Date / Time No Known Allergies [NKA] Allergy Unknown NONE Verified 04/13/23 14:27 Assessment & Plan Assessment & Plan (1) Schizoaffective disorder, depressive type: Status: Acute Code(s): F25.1 - Schizoaffective disorder, depressive type Plan 57 yo male, to ER secondary to decompensation and lethargy. Hx of catatonia. Compliant with medicine in the community however his team reports decline prior to admission. Plan: Clozapine level. B12,Folate, Iron Profile Continue swallow eval recommendations NDD3, chopped/adv solids, think liquids, meds crushed in puree and total supervision meals/meds. Collateral contact- OP team, residence, family ECT consult if pt will agree. It has been effective for pt in the past. 04/20/23 Continue current tx. Further swallow eval to be decided. 04/21/23 Atropine opth drops SL 1 q4h prn sialorrhea sx Abilify 5 mg a.m. trial for augmentation of regime 04/22/23 continue tx plan Reason for continued inpatient stay Substantial Risk for: harm to self, inability to function and rapid decompensation Time Spent With Patient Time: Total time managing care of this patient today ____ minutes.
[2023-04-22 18:00] VITALS: BP 131/63; PULSE 75; RESP 18; TEMP 36.5; O2SAT 97
[2023-04-22] MEDS: Sennosides 8.6 MG TABLET 17.2 MG PO (20:41)
[2023-04-22] MEDS: Tamsulosin HCL 0.4 MG CAPSULE PO (20:41)
[2023-04-22] MEDS: cloZAPine 100 MG TABLET 300 MG PO (20:41)
[2023-04-23] MEDS: Omeprazole 20 MG CAPSULE.DR PO ×2 (06:34→17:29)
[2023-04-23 08:30] VITALS: BP 149/74; PULSE 68; RESP 16; TEMP 36.2; O2SAT 95
[2023-04-23 08:52] LABS: Glucose, Whole Blood 110 mg/dL (60-115)
[2023-04-23] MEDS: Sertraline HCL 100 MG TABLET PO ×2 (09:05→20:33)
[2023-04-23] MEDS: LORazepam 1 MG TABLET PO ×3 (09:05→20:33)
[2023-04-23] MEDS: metFORMIN HCl ER 500 MG TAB.ER.24H PO (09:05)
[2023-04-23] MEDS: Docusate Sodium 100 MG CAPSULE 200 MG PO ×2 (09:06→20:33)
[2023-04-23] MEDS: ARIPiprazole 5 MG TABLET PO (09:06)
[2023-04-23] MEDS: Lithium Carbonate 300 MG CAPSULE PO ×2 (09:06→20:33)
--- NOTE | 2023-04-23 10:10 | HO.PSYCHPN ---
Subjective Subjective Date of Service: 04/23/23 Reason For Visit: Depression Interim History: Pt has not been pocketing food;reports he feels safe on unit. He is intermittently internally preoccupied and has delayed response. med compliant no side effect noted Medication Compliance: Yes Side effects from medications: No Attending Groups: Intermittent Review of Systems Acute medical concerns: No Medical Review of Systems: unchanged Review of Systems Review of Systems reports feeling cold reports sialorrhea, especially at night. Yes all other systems are reviewed and are negative and Unobtainable due to mental status Reports dysphagia Gastrointestinal: Reports dysphagia Mental Status Exam Mental Status Exam Patient Appearance: Fatigued Patient Orientation: Person and Place Level of Consciousness: Awake, Alert and Follows Commands Patient Behavior: Guarded, Passive, Suspicious, Avoidant, Isolative and Good Eye Contact Mood Description: Constricted Affect Description: Constricted Patient Cognition Impaired: No Ability to Follow Directions: Fair Speech Pattern: Impoverished, Spontaneous Speech, Soft-Spoken, Delayed and Long Pauses Memory Description: Episodic Impaired Judgement: Fair Diagnostics Vital Signs (24Hr): Vital Signs - 24 hr 04/22/23 18:00 04/23/23 08:30 Temperature 97.7 F 97.1 F Pulse Rate 75 68 Respiratory Rate 18 16 Blood Pressure 131/63 149/74 H Pulse Oximetry 97 95 Oxygen Delivery Method Room Air Room Air BMI result Body Mass Index 32.0 Labs 04/16/23 18:26 04/17/23 06:53 Labs: Laboratory Results - last 48 hr 04/22/23 04/23/23 08:22 08:15 POC Glucose 98 110 Medications Medications Current Medications Acetaminophen (Acetaminophen 325 Mg Tablet) 650 mg PO Q6H PRN PRN Reason: Headache/Pain Mild Scale (1-3) Al Hydroxide/Mg Hydroxide (Magnesium Hydrox/Alum Hydrox 30 Ml Oral.Susp) 30 ml PO Q6H PRN PRN Reason: Heartburn/Nausea Aripiprazole (Aripiprazole 5 Mg Tablet) 5 mg PO DAILY [facility] Last Admin: 04/23/23 09:06 Dose: 5 mg Atropine Sulfate (Atropine Sulfate 1 % Ophth Mallorie 2 Ml Bottle) 1 drop SUBLINGUAL Q4H PRN PRN Reason: Sialorrhea Clozapine (Clozapine 100 Mg Tablet) 300 mg PO BEDTIME [facility] Last Admin: 04/22/23 20:41 Dose: 300 mg Docusate Sodium (Docusate Sodium 100 Mg Capsule) 200 mg PO BID [facility] Last Admin: 04/23/23 09:06 Dose: 200 mg Hydroxyzine HCl (Hydroxyzine Hcl 25 Mg Tablet) 25 mg PO Q6H PRN PRN Reason: Anxiety [place] Carbonate ([place] Carbonate 300 Mg Capsule) 300 mg PO BID [facility] Last Admin: 04/23/23 09:06 Dose: 300 mg Lorazepam (Lorazepam 1 Mg Tablet) 1 mg PO TID [facility] Last Admin: 04/23/23 09:05 Dose: 1 mg Magnesium Hydroxide (Milk Of Magnesia 30 Ml Oral.Susp) 30 ml PO DAILY PRN PRN Reason: Constipation Last Admin: 04/21/23 09:59 Dose: 30 ml Metformin HCl (Metformin Hcl Er 500 Mg Tab.Er.24h) 500 mg PO DAILY [facility] Last Admin: 04/23/23 09:05 Dose: 500 mg Omeprazole (Omeprazole 20 Mg Capsule.Dr) 20 mg PO BID@0630,1630 [facility] Last Admin: 04/23/23 06:34 Dose: 20 mg Senna (Sennosides 8.6 Mg Tablet) 17.2 mg PO BEDTIME [facility] Last Admin: 04/22/23 20:41 Dose: 17.2 mg Sertraline HCl (Sertraline Hcl 100 Mg Tablet) 100 mg PO BID [facility] Last Admin: 04/23/23 09:05 Dose: 100 mg Tamsulosin HCl (Tamsulosin Hcl 0.4 Mg Capsule) 0.4 mg PO BEDTIME [facility] Last Admin: 04/22/23 20:41 Dose: 0.4 mg Trazodone HCl (Trazodone Hcl 50 Mg Tablet) 50 mg PO BEDTIME MRX1 PRN PRN Reason: Insomnia Allergies Allergies Allergy/AdvReac Type Severity Reaction Status Date / Time No Known Allergies [NKA] Allergy Unknown NONE Verified 04/13/23 14:27 Assessment & Plan Assessment & Plan (1) Schizoaffective disorder, depressive type: Status: Acute Code(s): F25.1 - Schizoaffective disorder, depressive type Plan 57 yo male, to ER secondary to decompensation and lethargy. Hx of catatonia. Compliant with medicine in the community however his team reports decline prior to admission. Plan: Clozapine level. B12,Folate, Iron Profile Continue swallow eval recommendations NDD3, chopped/adv solids, think liquids, meds crushed in puree and total supervision meals/meds. Collateral contact- OP team, residence, family ECT consult if pt will agree. It has been effective for pt in the past. 04/20/23 Continue current tx. Further swallow eval to be decided. 04/21/23 Atropine opth drops SL 1 q4h prn sialorrhea sx Abilify 5 mg a.m. trial for augmentation of regime 04/22/23 continue tx plan 04/23/23 continue tx plan Patient educated on: medication risk/benefits and therapeutic strategies Reason for continued inpatient stay Substantial Risk for: harm to self, inability to function, rapid decompensation and med/psych decompensation Time Spent With Patient Time: Total time managing care of this patient today ____ minutes.
[2023-04-23 10:21] LABS: Neut%MD 72.3 %; Neutrophils Absolute Auto 4.9 x10*3/uL (2.0-8.3); WBCANC 6.8 X10*3/uL
[2023-04-23 16:39] LABS: Clozapine (Clozaril) 550 mcg/L; Norclozapine 222 mcg/L (25-400)
[2023-04-23 18:00] VITALS: BP 113/60; PULSE 72; RESP 16; TEMP 36.3; O2SAT 98
[2023-04-23] MEDS: cloZAPine 100 MG TABLET 300 MG PO (20:32)
[2023-04-23] MEDS: Sennosides 8.6 MG TABLET 17.2 MG PO (20:33)
[2023-04-23] MEDS: Tamsulosin HCL 0.4 MG CAPSULE PO (20:33)
[2023-04-23] MEDS: polyethylene glycoL 3350 17 GM POWD.PACK PO (20:33)
[2023-04-24] MEDS: Omeprazole 20 MG CAPSULE.DR PO ×2 (05:50→16:23)
[2023-04-24 08:00] VITALS: BP 128/75; PULSE 79; RESP 16; TEMP 36.4; O2SAT 96
[2023-04-24 08:11] LABS: Glucose, Whole Blood 104 mg/dL (60-115)
[2023-04-24] MEDS: Sertraline HCL 100 MG TABLET PO ×2 (08:23→20:10)
[2023-04-24] MEDS: Docusate Sodium 100 MG CAPSULE 200 MG PO ×2 (08:23→20:09)
[2023-04-24] MEDS: metFORMIN HCl ER 500 MG TAB.ER.24H PO (08:23)
[2023-04-24] MEDS: LORazepam 1 MG TABLET PO ×3 (08:24→20:10)
[2023-04-24] MEDS: ARIPiprazole 5 MG TABLET PO (08:24)
[2023-04-24] MEDS: Lithium Carbonate 300 MG CAPSULE PO ×2 (08:24→20:10)
[2023-04-24 09:14] LABS: Creatinine Clr Calc Pharmacy 71.7; Estimated Glomerular Filt Rate 54
--- NOTE | 2023-04-24 16:41 | HO.PSYCHPN ---
Subjective Subjective Date of Service: 04/24/23 Reason For Visit: Depression Subjective Notes: Conditional Voluntary Healthcare Proxy: No Guardianship: No Medical Problems Affecting Mental Status: No Interim History: Benjamin reports mild improvement in mood, increased interest in group attendance. GI consult ordered. He reports doing well with speech recommendations for dysphagia and hopes to have Barium Swallow to make sure there are no specific problems. Tolerating Abilify augment without SE he reports In the milieu in the a.m. Napping in the afternoon. States he awakens for later afternoon group activity. Medication Compliance: Yes Side effects from medications: No Attending Groups: Intermittent Review of Systems Acute medical concerns: No Medical Review of Systems: unchanged Review of Systems Review of Systems dysphagia improved per pt report when following speech plan of care. Mental Status Exam Mental Status Exam Patient Appearance: Fatigued and Appropriate Patient Orientation: Person, Place, Time and Situation Level of Consciousness: Alert Patient Behavior: Talkative and Good Eye Contact Mood Description: Constricted Affect Description: Constricted Patient Cognition Impaired: No Ability to Follow Directions: Fair Speech Pattern: Spontaneous Speech, Soft-Spoken and Long Pauses Memory Description: Intact Hallucinations: None (denies) Delusions: Not Present Perceptual Disturbances: Depersonalization and Derealization Thought Process: Rumination Thought Content: positive for Circumstantial, positive for Thought Blocking (??) and positive for Suicidal Ideation (denies) Depressive Symptoms: Low Self Esteem Judgement: Fair Diagnostics Vital Signs (24Hr): Vital Signs - 24 hr 04/23/23 18:00 04/24/23 08:00 Temperature 97.3 F 97.5 F Pulse Rate 72 79 Respiratory Rate 16 16 Blood Pressure 113/60 128/75 Pulse Oximetry 98 96 Oxygen Delivery Method Room Air Room Air BMI result Body Mass Index 32.0 Labs 04/16/23 18:26 04/24/23 08:36 Labs: Laboratory Results - last 48 hr 04/19/23 04/23/23 04/23/23 09:53 08:15 10:16 Absolute Neuts (auto) 4.9 Creatinine Estim Creat Clear Calc Estimated GFR POC Glucose 110 Clozapine 550 Norclozapine 222 04/24/23 04/24/23 08:03 08:36 Absolute Neuts (auto) Creatinine 1.36 Estim Creat Clear Calc 71.7 Estimated GFR 54 POC Glucose 104 Clozapine Norclozapine Medications Medications Current Medications Acetaminophen (Acetaminophen 325 Mg Tablet) 650 mg PO Q6H PRN PRN Reason: Headache/Pain Mild Scale (1-3) Al Hydroxide/Mg Hydroxide (Magnesium Hydrox/Alum Hydrox 30 Ml Oral.Susp) 30 ml PO Q6H PRN PRN Reason: Heartburn/Nausea Aripiprazole (Aripiprazole 5 Mg Tablet) 5 mg PO DAILY [facility] Last Admin: 04/24/23 08:24 Dose: 5 mg Atropine Sulfate (Atropine Sulfate 1 % Ophth Mallorie 2 Ml Bottle) 1 drop SUBLINGUAL Q4H PRN PRN Reason: Sialorrhea Clozapine (Clozapine 100 Mg Tablet) 300 mg PO BEDTIME [facility] Last Admin: 04/23/23 20:32 Dose: 300 mg Docusate Sodium (Docusate Sodium 100 Mg Capsule) 200 mg PO BID [facility] Last Admin: 04/24/23 08:23 Dose: 200 mg Hydroxyzine HCl (Hydroxyzine Hcl 25 Mg Tablet) 25 mg PO Q6H PRN PRN Reason: Anxiety [place] Carbonate ([place] Carbonate 300 Mg Capsule) 300 mg PO BID [facility] Last Admin: 04/24/23 08:24 Dose: 300 mg Lorazepam (Lorazepam 1 Mg Tablet) 1 mg PO TID [facility] Last Admin: 04/24/23 14:05 Dose: 1 mg Magnesium Hydroxide (Milk Of Magnesia 30 Ml Oral.Susp) 30 ml PO DAILY PRN PRN Reason: Constipation Last Admin: 04/21/23 09:59 Dose: 30 ml Metformin HCl (Metformin Hcl Er 500 Mg Tab.Er.24h) 500 mg PO DAILY [facility] Last Admin: 04/24/23 08:23 Dose: 500 mg Omeprazole (Omeprazole 20 Mg Capsule.Dr) 20 mg PO BID@0630,1630 [facility] Last Admin: 04/24/23 16:23 Dose: 20 mg Polyethylene Glycol (Polyethylene Glycol 3350 17 Gm Powd.Pack) 17 gm PO DAILY PRN PRN Reason: Constipation Last Admin: 04/23/23 20:33 Dose: 17 gm Senna (Sennosides 8.6 Mg Tablet) 17.2 mg PO BEDTIME [facility] Last Admin: 04/23/23 20:33 Dose: 17.2 mg Sertraline HCl (Sertraline Hcl 100 Mg Tablet) 100 mg PO BID [facility] Last Admin: 04/24/23 08:23 Dose: 100 mg Tamsulosin HCl (Tamsulosin Hcl 0.4 Mg Capsule) 0.4 mg PO BEDTIME [facility] Last Admin: 04/23/23 20:33 Dose: 0.4 mg Trazodone HCl (Trazodone Hcl 50 Mg Tablet) 50 mg PO BEDTIME MRX1 PRN PRN Reason: Insomnia Allergies Allergies Allergy/AdvReac Type Severity Reaction Status Date / Time No Known Allergies [NKA] Allergy Unknown NONE Verified 04/13/23 14:27 Assessment & Plan Assessment & Plan (1) Schizoaffective disorder, depressive type: Status: Acute Code(s): F25.1 - Schizoaffective disorder, depressive type Plan 57 yo male, to ER secondary to decompensation and lethargy. Hx of catatonia. Compliant with medicine in the community however his team reports decline prior to admission. Plan: Clozapine level. B12,Folate, Iron Profile Continue swallow eval recommendations NDD3, chopped/adv solids, think liquids, meds crushed in puree and total supervision meals/meds. Collateral contact- OP team, residence, family ECT consult if pt will agree. It has been effective for pt in the past. 04/20/23 Continue current tx. Further swallow eval to be decided. 04/21/23 Atropine opth drops SL 1 q4h prn sialorrhea sx Abilify 5 mg a.m. trial for augmentation of regime 04/22/23 continue tx plan 04/23/23 continue tx plan 04/24/23 GI Consult for dysphagia, sialorrhea, choking. Continue current regime. Patient educated on: therapeutic strategies and medical condition Informed Consent: understands Reason for continued inpatient stay Substantial Risk for: med/psych decompensation Time Spent With Patient Time: Total time managing care of this patient today ____ minutes.
[2023-04-24 18:00] VITALS: BP 135/80; PULSE 75; RESP 16; TEMP 36.6
[2023-04-24] MEDS: Sennosides 8.6 MG TABLET 17.2 MG PO (20:08)
[2023-04-24] MEDS: Tamsulosin HCL 0.4 MG CAPSULE PO (20:09)
[2023-04-24] MEDS: cloZAPine 100 MG TABLET 300 MG PO (20:11)
[2023-04-24] MEDS: polyethylene glycoL 3350 17 GM POWD.PACK PO (20:31)
[2023-04-25] MEDS: Omeprazole 20 MG CAPSULE.DR PO ×2 (06:15→17:01)
[2023-04-25] MEDS: Lithium Carbonate 300 MG CAPSULE PO ×2 (08:22→20:00)
[2023-04-25] MEDS: LORazepam 1 MG TABLET PO ×3 (08:22→20:01)
[2023-04-25] MEDS: Docusate Sodium 100 MG CAPSULE 200 MG PO ×2 (08:22→19:59)
[2023-04-25] MEDS: ARIPiprazole 5 MG TABLET PO (08:22)
[2023-04-25] MEDS: Sertraline HCL 100 MG TABLET PO ×2 (08:22→20:00)
[2023-04-25] MEDS: metFORMIN HCl ER 500 MG TAB.ER.24H PO (08:22)
[2023-04-25 08:30] LABS: Glucose, Whole Blood 116 mg/dL (60-115)
[2023-04-25 08:35] VITALS: BP 123/63; PULSE 69; RESP 16; TEMP 36.2; O2SAT 97
--- NOTE | 2023-04-25 09:52 | P.PNPSI_ITS ---
Subjective Subjective Date of Service: 04/25/23 Reason For Visit: Depression Subjective Notes: Conditional Voluntary Healthcare Proxy: No Guardianship: No Medical Problems Affecting Mental Status: No Interim History: Pt reports feeling improved. He visited with his father which he states was positive. Care discussed with out pt prescriber, Og Lomas who reports pt has been more socially isolative during the pandemic and as a result seemingly increasingly symptomatic. [facility] team is attempting to engage him in more social activities to help with sx of isolation and lonliness. Pt reports no adverse effects from Abilify. GI consult pending, ?need for barium swallow eval. Medication Compliance: Yes Side effects from medications: No Attending Groups: Yes Review of Systems Acute medical concerns: No Medical Review of Systems: unchanged Review of Systems Review of Systems Yes all other systems are reviewed and are negative Mental Status Exam Mental Status Exam Patient Appearance: Appropriate Patient Orientation: Person, Place, Time and Situation Level of Consciousness: Alert Patient Behavior: Talkative and Good Eye Contact Mood Description: Constricted Affect Description: Constricted Patient Cognition Impaired: No Ability to Follow Directions: Fair Speech Pattern: Spontaneous Speech, Soft-Spoken and Long Pauses Memory Description: Intact Hallucinations: None (denies) Delusions: Not Present Perceptual Disturbances: Depersonalization and Derealization Thought Process: Rumination Thought Content: positive for Circumstantial, positive for Thought Blocking (??) and positive for Suicidal Ideation (denies) Depressive Symptoms: Low Self Esteem Judgement: Fair Diagnostics Vital Signs (24Hr): Vital Signs - 24 hr 04/24/23 18:00 Temperature 97.8 F Pulse Rate 75 Respiratory Rate 16 Blood Pressure 135/80 BMI result Body Mass Index 32.0 Labs 04/16/23 18:26 04/24/23 08:36 Labs: Laboratory Results - last 48 hr 04/19/23 04/23/23 04/24/23 09:53 10:16 08:03 Absolute Neuts (auto) 4.9 Creatinine Estim Creat Clear Calc Estimated GFR POC Glucose 104 Clozapine 550 Norclozapine 222 04/24/23 04/25/23 08:36 08:15 Absolute Neuts (auto) Creatinine 1.36 Estim Creat Clear Calc 71.7 Estimated GFR 54 POC Glucose 116 H Clozapine Norclozapine Medications Medications Current Medications Acetaminophen (Acetaminophen 325 Mg Tablet) 650 mg PO Q6H PRN PRN Reason: Headache/Pain Mild Scale (1-3) Al Hydroxide/Mg Hydroxide (Magnesium Hydrox/Alum Hydrox 30 Ml Oral.Susp) 30 ml PO Q6H PRN PRN Reason: Heartburn/Nausea Aripiprazole (Aripiprazole 5 Mg Tablet) 5 mg PO DAILY [facility] Last Admin: 04/25/23 08:22 Dose: 5 mg Atropine Sulfate (Atropine Sulfate 1 % Ophth Mallorie 2 Ml Bottle) 1 drop SUBLINGUAL Q4H PRN PRN Reason: Sialorrhea Clozapine (Clozapine 100 Mg Tablet) 300 mg PO BEDTIME [facility] Last Admin: 04/24/23 20:11 Dose: 300 mg Docusate Sodium (Docusate Sodium 100 Mg Capsule) 200 mg PO BID [facility] Last Admin: 04/25/23 08:22 Dose: 200 mg Hydroxyzine HCl (Hydroxyzine Hcl 25 Mg Tablet) 25 mg PO Q6H PRN PRN Reason: Anxiety [place] Carbonate ([place] Carbonate 300 Mg Capsule) 300 mg PO BID [facility] Last Admin: 04/25/23 08:22 Dose: 300 mg Lorazepam (Lorazepam 1 Mg Tablet) 1 mg PO TID [facility] Last Admin: 04/25/23 08:22 Dose: 1 mg Magnesium Hydroxide (Milk Of Magnesia 30 Ml Oral.Susp) 30 ml PO DAILY PRN PRN Reason: Constipation Last Admin: 04/21/23 09:59 Dose: 30 ml Metformin HCl (Metformin Hcl Er 500 Mg Tab.Er.24h) 500 mg PO DAILY [facility] Last Admin: 04/25/23 08:22 Dose: 500 mg Omeprazole (Omeprazole 20 Mg Capsule.Dr) 20 mg PO BID@0630,1630 [facility] Last Admin: 04/25/23 06:15 Dose: 20 mg Polyethylene Glycol (Polyethylene Glycol 3350 17 Gm Powd.Pack) 17 gm PO DAILY PRN PRN Reason: Constipation Last Admin: 04/24/23 20:31 Dose: 17 gm Senna (Sennosides 8.6 Mg Tablet) 17.2 mg PO BEDTIME [facility] Last Admin: 04/24/23 20:08 Dose: 17.2 mg Sertraline HCl (Sertraline Hcl 100 Mg Tablet) 100 mg PO BID [facility] Last Admin: 04/25/23 08:22 Dose: 100 mg Tamsulosin HCl (Tamsulosin Hcl 0.4 Mg Capsule) 0.4 mg PO BEDTIME [facility] Last Admin: 04/24/23 20:09 Dose: 0.4 mg Trazodone HCl (Trazodone Hcl 50 Mg Tablet) 50 mg PO BEDTIME MRX1 PRN PRN Reason: Insomnia Allergies Allergies Allergy/AdvReac Type Severity Reaction Status Date / Time No Known Allergies [NKA] Allergy Unknown NONE Verified 04/13/23 14:27 Assessment & Plan Assessment & Plan (1) Schizoaffective disorder, depressive type: Status: Acute Code(s): F25.1 - Schizoaffective disorder, depressive type Plan 57 yo male, to ER secondary to decompensation and lethargy. Hx of catatonia. Compliant with medicine in the community however his team reports decline prior to admission. Plan: Clozapine level. B12,Folate, Iron Profile Continue swallow eval recommendations NDD3, chopped/adv solids, think liquids, meds crushed in puree and total supervision meals/meds. Collateral contact- OP team, residence, family ECT consult if pt will agree. It has been effective for pt in the past. 04/20/23 Continue current tx. Further swallow eval to be decided. 04/21/23 Atropine opth drops SL 1 q4h prn sialorrhea sx Abilify 5 mg a.m. trial for augmentation of regime 04/22/23 continue tx plan 04/23/23 continue tx plan 04/24/23 GI Consult for dysphagia, sialorrhea, choking. Continue current regime. 04/25/23 Continue tx. Patient educated on: therapeutic strategies Informed Consent: understands and further education needed Reason for continued inpatient stay Substantial Risk for: rapid decompensation Time Spent With Patient Time: Total time managing care of this patient today ____ minutes.
[2023-04-25 12:31] LABS: Glucose, Whole Blood 98 mg/dL (60-115)
[2023-04-25 16:51] LABS: Glucose, Whole Blood 96 mg/dL (60-115)
[2023-04-25 17:07] VITALS: BP 146/80; PULSE 63; RESP 16; TEMP 36.2; O2SAT 99
[2023-04-25] MEDS: cloZAPine 100 MG TABLET 300 MG PO (20:00)
[2023-04-25] MEDS: Tamsulosin HCL 0.4 MG CAPSULE PO (20:00)
[2023-04-25] MEDS: Sennosides 8.6 MG TABLET 17.2 MG PO (20:01)
[2023-04-25] MEDS: polyethylene glycoL 3350 17 GM POWD.PACK PO (20:35)
[2023-04-26] MEDS: Omeprazole 20 MG CAPSULE.DR PO ×2 (06:24→17:21)
[2023-04-26 07:58] VITALS: BP 118/79; PULSE 84; RESP 16; TEMP 36.4; O2SAT 96
[2023-04-26 08:06] LABS: Glucose, Whole Blood 97 mg/dL (60-115)
[2023-04-26] MEDS: metFORMIN HCl ER 500 MG TAB.ER.24H PO (08:56)
[2023-04-26] MEDS: Docusate Sodium 100 MG CAPSULE 200 MG PO ×2 (08:56→20:03)
[2023-04-26] MEDS: ARIPiprazole 5 MG TABLET PO (08:56)
[2023-04-26] MEDS: Lithium Carbonate 300 MG CAPSULE PO ×2 (08:56→20:04)
[2023-04-26] MEDS: LORazepam 1 MG TABLET PO ×3 (08:57→20:03)
[2023-04-26] MEDS: Sertraline HCL 100 MG TABLET PO ×2 (08:57→20:04)
--- NOTE | 2023-04-26 13:30 | P.PNPSI_ITS ---
Subjective Subjective Date of Service: 04/26/23 Reason For Visit: Depression Subjective Notes: Conditional Voluntary Healthcare Proxy: No Guardianship: No Medical Problems Affecting Mental Status: No Interim History: Improved affect today. Engaging/Initiating discussion. Increased interest in care planning for discharge. Pleased that his out pt team was contacted and are thinking of ways to help him on discharge. Discussed his schedule. Reports working 2 [id number] for 8 hours. Uses days off for appointments, VNA BID and home cleaning. Considering social day programs to help fill some free time with activities Medication Compliance: Yes Side effects from medications: No Attending Groups: Yes Review of Systems Acute medical concerns: No Medical Review of Systems: unchanged Review of Systems Review of Systems Yes all other systems are reviewed and are negative Mental Status Exam Mental Status Exam Patient Appearance: Appropriate Patient Orientation: Person, Place, Time and Situation Level of Consciousness: Alert Patient Behavior: Talkative and Good Eye Contact Mood Description: Constricted Affect Description: Constricted Patient Cognition Impaired: No Ability to Follow Directions: Fair Speech Pattern: Spontaneous Speech, Soft-Spoken and Long Pauses Memory Description: Intact Hallucinations: None (denies) Delusions: Not Present Perceptual Disturbances: Depersonalization and Derealization Thought Process: Rumination Thought Content: positive for Circumstantial, positive for Thought Blocking (??) and positive for Suicidal Ideation (denies) Depressive Symptoms: Low Self Esteem Judgement: Fair Diagnostics Vital Signs (24Hr): Vital Signs - 24 hr 04/25/23 17:07 04/26/23 07:58 Temperature 97.1 F 97.5 F Pulse Rate 63 84 Respiratory Rate 16 16 Blood Pressure 146/80 H 118/79 Pulse Oximetry 99 96 Oxygen Delivery Method Room Air Room Air BMI result Body Mass Index 32.0 Labs 04/16/23 18:26 04/24/23 08:36 Labs: Laboratory Results - last 48 hr 04/25/23 04/25/23 04/25/23 08:15 12:17 16:47 POC Glucose 116 H 98 96 04/26/23 08:01 POC Glucose 97 Medications Medications Current Medications Acetaminophen (Acetaminophen 325 Mg Tablet) 650 mg PO Q6H PRN PRN Reason: Headache/Pain Mild Scale (1-3) Al Hydroxide/Mg Hydroxide (Magnesium Hydrox/Alum Hydrox 30 Ml Oral.Susp) 30 ml PO Q6H PRN PRN Reason: Heartburn/Nausea Aripiprazole (Aripiprazole 5 Mg Tablet) 5 mg PO DAILY [facility] Last Admin: 04/26/23 08:56 Dose: 5 mg Atropine Sulfate (Atropine Sulfate 1 % Ophth Mallorie 2 Ml Bottle) 1 drop SUBLINGUAL Q4H PRN PRN Reason: Sialorrhea Clozapine (Clozapine 100 Mg Tablet) 300 mg PO BEDTIME [facility] Last Admin: 04/25/23 20:00 Dose: 300 mg Docusate Sodium (Docusate Sodium 100 Mg Capsule) 200 mg PO BID [facility] Last Admin: 04/26/23 08:56 Dose: 200 mg Hydroxyzine HCl (Hydroxyzine Hcl 25 Mg Tablet) 25 mg PO Q6H PRN PRN Reason: Anxiety [place] Carbonate ([place] Carbonate 300 Mg Capsule) 300 mg PO BID [facility] Last Admin: 04/26/23 08:56 Dose: 300 mg Lorazepam (Lorazepam 1 Mg Tablet) 1 mg PO TID [facility] Last Admin: 04/26/23 08:57 Dose: 1 mg Magnesium Hydroxide (Milk Of Magnesia 30 Ml Oral.Susp) 30 ml PO DAILY PRN PRN Reason: Constipation Last Admin: 04/21/23 09:59 Dose: 30 ml Metformin HCl (Metformin Hcl Er 500 Mg Tab.Er.24h) 500 mg PO DAILY [facility] Last Admin: 04/26/23 08:56 Dose: 500 mg Omeprazole (Omeprazole 20 Mg Capsule.Dr) 20 mg PO BID@0630,1630 [facility] Last Admin: 04/26/23 06:24 Dose: 20 mg Polyethylene Glycol (Polyethylene Glycol 3350 17 Gm Powd.Pack) 17 gm PO DAILY PRN PRN Reason: Constipation Last Admin: 04/25/23 20:35 Dose: 17 gm Senna (Sennosides 8.6 Mg Tablet) 17.2 mg PO BEDTIME [facility] Last Admin: 04/25/23 20:01 Dose: 17.2 mg Sertraline HCl (Sertraline Hcl 100 Mg Tablet) 100 mg PO BID [facility] Last Admin: 04/26/23 08:57 Dose: 100 mg Tamsulosin HCl (Tamsulosin Hcl 0.4 Mg Capsule) 0.4 mg PO BEDTIME [facility] Last Admin: 04/25/23 20:00 Dose: 0.4 mg Trazodone HCl (Trazodone Hcl 50 Mg Tablet) 50 mg PO BEDTIME MRX1 PRN PRN Reason: Insomnia Allergies Allergies Allergy/AdvReac Type Severity Reaction Status Date / Time No Known Allergies [NKA] Allergy Unknown NONE Verified 04/13/23 14:27 Assessment & Plan Assessment & Plan (1) Schizoaffective disorder, depressive type: Status: Acute Code(s): F25.1 - Schizoaffective disorder, depressive type Plan 57 yo male, to ER secondary to decompensation and lethargy. Hx of catatonia. Compliant with medicine in the community however his team reports decline prior to admission. Plan: Clozapine level. B12,Folate, Iron Profile Continue swallow eval recommendations NDD3, chopped/adv solids, think liquids, meds crushed in puree and total supervision meals/meds. Collateral contact- OP team, residence, family ECT consult if pt will agree. It has been effective for pt in the past. 04/20/23 Continue current tx. Further swallow eval to be decided. 04/21/23 Atropine opth drops SL 1 q4h prn sialorrhea sx Abilify 5 mg a.m. trial for augmentation of regime 04/22/23 continue tx plan 04/23/23 continue tx plan 04/24/23 GI Consult for dysphagia, sialorrhea, choking. Continue current regime. 04/25/23 Continue tx. 04/26/23 Continue tx Patient educated on: therapeutic strategies Informed Consent: understands and further education needed Reason for continued inpatient stay Substantial Risk for: rapid decompensation Time Spent With Patient Time: Total time managing care of this patient today ____ minutes.
[2023-04-26 19:16] VITALS: BP 136/65; PULSE 72; RESP 16; TEMP 36.2; O2SAT 98
[2023-04-26] MEDS: Atropine Sulfate 1 % Ophth Sol 2 ML BOTTLE 1 DROP SUBLINGUAL (20:01)
[2023-04-26] MEDS: Sennosides 8.6 MG TABLET 17.2 MG PO (20:03)
[2023-04-26] MEDS: cloZAPine 100 MG TABLET 300 MG PO (20:04)
[2023-04-26] MEDS: Tamsulosin HCL 0.4 MG CAPSULE PO (20:04)
[2023-04-26] MEDS: polyethylene glycoL 3350 17 GM POWD.PACK PO (20:22)
[2023-04-27] MEDS: Omeprazole 20 MG CAPSULE.DR PO ×2 (06:23→16:45)
[2023-04-27 08:00] VITALS: BP 134/64; PULSE 65; RESP 16; TEMP 36.3; O2SAT 94
[2023-04-27 08:12] LABS: Glucose, Whole Blood 104 mg/dL (60-115)
[2023-04-27] MEDS: Sertraline HCL 100 MG TABLET PO ×2 (08:16→20:35)
[2023-04-27] MEDS: Lithium Carbonate 300 MG CAPSULE PO ×2 (08:16→20:14)
[2023-04-27] MEDS: Docusate Sodium 100 MG CAPSULE 200 MG PO ×2 (08:16→20:13)
[2023-04-27] MEDS: metFORMIN HCl ER 500 MG TAB.ER.24H PO (08:16)
[2023-04-27] MEDS: ARIPiprazole 5 MG TABLET PO (08:16)
[2023-04-27] MEDS: LORazepam 1 MG TABLET PO ×3 (08:17→20:13)
[2023-04-27 13:04] VITALS: BMI 31.7
--- NOTE | 2023-04-27 17:18 | HO.PSYCHPN ---
Subjective Subjective Date of Service: 04/27/23 Reason For Visit: Depression Subjective Notes: Conditional Voluntary Healthcare Proxy: No Guardianship: No Medical Problems Affecting Mental Status: No Interim History: Pt visable in milieu, attending group, states he is feeling well. Denies SI, HI. Reports no depressive, anxious sx. Call to his program [facility], today [phone] to review plan of care. Medication Compliance: Yes Side effects from medications: No Attending Groups: Yes Review of Systems Acute medical concerns: No Medical Review of Systems: unchanged Review of Systems Review of Systems Yes all other systems are reviewed and are negative Mental Status Exam Mental Status Exam Patient Appearance: Appropriate Patient Orientation: Person, Place, Time and Situation Level of Consciousness: Alert Patient Behavior: Talkative and Good Eye Contact Mood Description: Constricted Affect Description: Constricted Patient Cognition Impaired: No Ability to Follow Directions: Fair Speech Pattern: Spontaneous Speech, Soft-Spoken and Long Pauses Memory Description: Intact Hallucinations: None (denies) Delusions: Not Present Perceptual Disturbances: Depersonalization and Derealization Thought Process: Rumination Thought Content: positive for Circumstantial, positive for Thought Blocking (??) and positive for Suicidal Ideation (denies) Depressive Symptoms: Low Self Esteem Judgement: Fair Diagnostics Vital Signs (24Hr): Vital Signs - 24 hr 04/26/23 19:16 04/27/23 08:00 Temperature 97.2 F 97.4 F Pulse Rate 72 65 Respiratory Rate 16 16 Blood Pressure 136/65 134/64 Pulse Oximetry 98 94 Oxygen Delivery Method Room Air Room Air BMI result Body Mass Index 31.7 Labs 04/16/23 18:26 04/24/23 08:36 Labs: Laboratory Results - last 48 hr 04/26/23 04/27/23 08:01 08:08 POC Glucose 97 104 Medications Medications Current Medications Acetaminophen (Acetaminophen 325 Mg Tablet) 650 mg PO Q6H PRN PRN Reason: Headache/Pain Mild Scale (1-3) Al Hydroxide/Mg Hydroxide (Magnesium Hydrox/Alum Hydrox 30 Ml Oral.Susp) 30 ml PO Q6H PRN PRN Reason: Heartburn/Nausea Aripiprazole (Aripiprazole 5 Mg Tablet) 5 mg PO DAILY [facility] Last Admin: 04/27/23 08:16 Dose: 5 mg Atropine Sulfate (Atropine Sulfate 1 % Ophth Mallorie 2 Ml Bottle) 1 drop SUBLINGUAL Q4H PRN PRN Reason: Sialorrhea Last Admin: 04/26/23 20:01 Dose: 1 drop Clozapine (Clozapine 100 Mg Tablet) 300 mg PO BEDTIME [facility] Last Admin: 04/26/23 20:04 Dose: 300 mg Docusate Sodium (Docusate Sodium 100 Mg Capsule) 200 mg PO BID [facility] Last Admin: 04/27/23 08:16 Dose: 200 mg Hydroxyzine HCl (Hydroxyzine Hcl 25 Mg Tablet) 25 mg PO Q6H PRN PRN Reason: Anxiety [place] Carbonate ([place] Carbonate 300 Mg Capsule) 300 mg PO BID [facility] Last Admin: 04/27/23 08:16 Dose: 300 mg Lorazepam (Lorazepam 1 Mg Tablet) 1 mg PO TID [facility] Last Admin: 04/27/23 14:59 Dose: 1 mg Magnesium Hydroxide (Milk Of Magnesia 30 Ml Oral.Susp) 30 ml PO DAILY PRN PRN Reason: Constipation Last Admin: 04/21/23 09:59 Dose: 30 ml Metformin HCl (Metformin Hcl Er 500 Mg Tab.Er.24h) 500 mg PO DAILY [facility] Last Admin: 04/27/23 08:16 Dose: 500 mg Omeprazole (Omeprazole 20 Mg Capsule.Dr) 20 mg PO BID@0630,1630 [facility] Last Admin: 04/27/23 16:45 Dose: 20 mg Polyethylene Glycol (Polyethylene Glycol 3350 17 Gm Powd.Pack) 17 gm PO DAILY PRN PRN Reason: Constipation Last Admin: 04/26/23 20:22 Dose: 17 gm Senna (Sennosides 8.6 Mg Tablet) 17.2 mg PO BEDTIME [facility] Last Admin: 04/26/23 20:03 Dose: 17.2 mg Sertraline HCl (Sertraline Hcl 100 Mg Tablet) 100 mg PO BID [facility] Last Admin: 04/27/23 08:16 Dose: 100 mg Tamsulosin HCl (Tamsulosin Hcl 0.4 Mg Capsule) 0.4 mg PO BEDTIME [facility] Last Admin: 04/26/23 20:04 Dose: 0.4 mg Trazodone HCl (Trazodone Hcl 50 Mg Tablet) 50 mg PO BEDTIME MRX1 PRN PRN Reason: Insomnia Allergies Allergies Allergy/AdvReac Type Severity Reaction Status Date / Time No Known Allergies [NKA] Allergy Unknown NONE Verified 04/13/23 14:27 Assessment & Plan Assessment & Plan (1) Schizoaffective disorder, depressive type: Status: Acute Code(s): F25.1 - Schizoaffective disorder, depressive type Plan 57 yo male, to ER secondary to decompensation and lethargy. Hx of catatonia. Compliant with medicine in the community however his team reports decline prior to admission. Plan: Clozapine level. B12,Folate, Iron Profile Continue swallow eval recommendations NDD3, chopped/adv solids, think liquids, meds crushed in puree and total supervision meals/meds. Collateral contact- OP team, residence, family ECT consult if pt will agree. It has been effective for pt in the past. 04/20/23 Continue current tx. Further swallow eval to be decided. 04/21/23 Atropine opth drops SL 1 q4h prn sialorrhea sx Abilify 5 mg a.m. trial for augmentation of regime 04/22/23 continue tx plan 04/23/23 continue tx plan 04/24/23 GI Consult for dysphagia, sialorrhea, choking. Continue current regime. 04/25/23 Continue tx. 04/27/23 Continue tx Informed Consent: understands and further education needed Reason for continued inpatient stay Substantial Risk for: rapid decompensation Time Spent With Patient Time: Total time managing care of this patient today ____ minutes.
[2023-04-27 18:00] VITALS: BP 116/77; PULSE 71; RESP 16; TEMP 36.2; O2SAT 96
[2023-04-27] MEDS: cloZAPine 100 MG TABLET 300 MG PO (20:14)
[2023-04-27] MEDS: Sennosides 8.6 MG TABLET 17.2 MG PO (20:14)
[2023-04-27] MEDS: Tamsulosin HCL 0.4 MG CAPSULE PO (20:14)
[2023-04-27] MEDS: Atropine Sulfate 1 % Ophth Sol 2 ML BOTTLE 1 DROP SUBLINGUAL (20:21)
[2023-04-28] MEDS: Omeprazole 20 MG CAPSULE.DR PO ×2 (06:12→16:21)
[2023-04-28 08:00] VITALS: BP 137/69; PULSE 66; RESP 16; TEMP 36.4; O2SAT 98
[2023-04-28 08:28] LABS: Glucose, Whole Blood 105 mg/dL (60-115)
[2023-04-28] MEDS: Sertraline HCL 100 MG TABLET PO ×2 (08:33→20:10)
[2023-04-28] MEDS: ARIPiprazole 5 MG TABLET PO (08:33)
[2023-04-28] MEDS: Docusate Sodium 100 MG CAPSULE 200 MG PO ×2 (08:33→20:07)
[2023-04-28] MEDS: LORazepam 1 MG TABLET PO ×3 (08:33→20:10)
[2023-04-28] MEDS: Lithium Carbonate 300 MG CAPSULE PO ×2 (08:33→20:08)
[2023-04-28] MEDS: metFORMIN HCl ER 500 MG TAB.ER.24H PO (08:33)
[2023-04-28 08:51] LABS: Lithium 0.78 mmol/L (0.60-1.20)
[2023-04-28 13:37] LABS: Clozapine (Clozaril) 432 mcg/L; Norclozapine 232 mcg/L (25-400)
--- NOTE | 2023-04-28 16:12 | P.PNPSI_ITS ---
Subjective Subjective Date of Service: 04/28/23 Reason For Visit: Depression Subjective Notes: Conditional Voluntary Healthcare Proxy: No Guardianship: No Medical Problems Affecting Mental Status: No Interim History: Benjamin reports feeling well. Looking forward to discharge on 05/02 He has trialed atropine drops for sialorrhea with efficacy. Denies med side effects. Participating in milieu and with peers this afternoon. Medication Compliance: Yes Side effects from medications: No Attending Groups: Yes Review of Systems Acute medical concerns: No Medical Review of Systems: unchanged Review of Systems Review of Systems Yes all other systems are reviewed and are negative Mental Status Exam Mental Status Exam Patient Appearance: Appropriate Patient Orientation: Person, Place, Time and Situation Level of Consciousness: Alert Patient Behavior: Talkative and Good Eye Contact Mood Description: Constricted Affect Description: Constricted Patient Cognition Impaired: No Ability to Follow Directions: Fair Speech Pattern: Spontaneous Speech, Soft-Spoken and Long Pauses Memory Description: Intact Hallucinations: None (denies) Delusions: Not Present Perceptual Disturbances: Depersonalization and Derealization Thought Process: Rumination Thought Content: positive for Circumstantial, positive for Thought Blocking (??) and positive for Suicidal Ideation (denies) Depressive Symptoms: Low Self Esteem Judgement: Fair Diagnostics Vital Signs (24Hr): Vital Signs - 24 hr 04/27/23 18:00 04/28/23 08:00 Temperature 97.2 F 97.5 F Pulse Rate 71 66 Respiratory Rate 16 16 Blood Pressure 116/77 137/69 Pulse Oximetry 96 98 Oxygen Delivery Method Room Air Room Air BMI result Body Mass Index 31.7 Labs 04/16/23 18:26 04/24/23 08:36 Labs: Laboratory Results - last 48 hr 04/23/23 04/27/23 04/28/23 07:24 08:08 08:10 POC Glucose 104 Clozapine 432 Norclozapine 232 [place] 0.78 04/28/23 08:19 POC Glucose 105 Clozapine Norclozapine [place] Medications Medications Current Medications Acetaminophen (Acetaminophen 325 Mg Tablet) 650 mg PO Q6H PRN PRN Reason: Headache/Pain Mild Scale (1-3) Al Hydroxide/Mg Hydroxide (Magnesium Hydrox/Alum Hydrox 30 Ml Oral.Susp) 30 ml PO Q6H PRN PRN Reason: Heartburn/Nausea Aripiprazole (Aripiprazole 5 Mg Tablet) 5 mg PO DAILY [facility] Last Admin: 04/28/23 08:33 Dose: 5 mg Atropine Sulfate (Atropine Sulfate 1 % Ophth Mallorie 2 Ml Bottle) 1 drop SUBLINGUAL Q4H PRN PRN Reason: Sialorrhea Last Admin: 04/27/23 20:21 Dose: 1 drop Clozapine (Clozapine 100 Mg Tablet) 300 mg PO BEDTIME [facility] Last Admin: 04/27/23 20:14 Dose: 300 mg Docusate Sodium (Docusate Sodium 100 Mg Capsule) 200 mg PO BID [facility] Last Admin: 04/28/23 08:33 Dose: 200 mg Hydroxyzine HCl (Hydroxyzine Hcl 25 Mg Tablet) 25 mg PO Q6H PRN PRN Reason: Anxiety [place] Carbonate ([place] Carbonate 300 Mg Capsule) 300 mg PO BID [facility] Last Admin: 04/28/23 08:33 Dose: 300 mg Lorazepam (Lorazepam 1 Mg Tablet) 1 mg PO TID [facility] Last Admin: 04/28/23 14:34 Dose: 1 mg Magnesium Hydroxide (Milk Of Magnesia 30 Ml Oral.Susp) 30 ml PO DAILY PRN PRN Reason: Constipation Last Admin: 04/21/23 09:59 Dose: 30 ml Metformin HCl (Metformin Hcl Er 500 Mg Tab.Er.24h) 500 mg PO DAILY [facility] Last Admin: 04/28/23 08:33 Dose: 500 mg Omeprazole (Omeprazole 20 Mg Capsule.Dr) 20 mg PO BID@0630,1630 [facility] Last Admin: 04/28/23 06:12 Dose: 20 mg Polyethylene Glycol (Polyethylene Glycol 3350 17 Gm Powd.Pack) 17 gm PO DAILY PRN PRN Reason: Constipation Last Admin: 04/26/23 20:22 Dose: 17 gm Senna (Sennosides 8.6 Mg Tablet) 17.2 mg PO BEDTIME [facility] Last Admin: 04/27/23 20:14 Dose: 17.2 mg Sertraline HCl (Sertraline Hcl 100 Mg Tablet) 100 mg PO BID [facility] Last Admin: 04/28/23 08:33 Dose: 100 mg Tamsulosin HCl (Tamsulosin Hcl 0.4 Mg Capsule) 0.4 mg PO BEDTIME [facility] Last Admin: 04/27/23 20:14 Dose: 0.4 mg Trazodone HCl (Trazodone Hcl 50 Mg Tablet) 50 mg PO BEDTIME MRX1 PRN PRN Reason: Insomnia Allergies Allergies Allergy/AdvReac Type Severity Reaction Status Date / Time No Known Allergies [NKA] Allergy Unknown NONE Verified 04/13/23 14:27 Assessment & Plan Assessment & Plan (1) Schizoaffective disorder, depressive type: Status: Acute Code(s): F25.1 - Schizoaffective disorder, depressive type Plan 57 yo male, to ER secondary to decompensation and lethargy. Hx of catatonia. Compliant with medicine in the community however his team reports decline prior to admission. Plan: Clozapine level. B12,Folate, Iron Profile Continue swallow eval recommendations NDD3, chopped/adv solids, think liquids, meds crushed in puree and total supervision meals/meds. Collateral contact- OP team, residence, family ECT consult if pt will agree. It has been effective for pt in the past. 04/20/23 Continue current tx. Further swallow eval to be decided. 04/21/23 Atropine opth drops SL 1 q4h prn sialorrhea sx Abilify 5 mg a.m. trial for augmentation of regime 04/22/23 continue tx plan 04/23/23 continue tx plan 04/24/23 GI Consult for dysphagia, sialorrhea, choking. Continue current regime. 04/25/23 Continue tx. 04/27/23 Continue tx 04/28/23 Continue tx Informed Consent: understands Reason for continued inpatient stay Substantial Risk for: rapid decompensation Time Spent With Patient Time: Total time managing care of this patient today ____ minutes.
[2023-04-28 17:21] VITALS: BP 138/69; PULSE 73; RESP 16; TEMP 36.2; O2SAT 99
[2023-04-28] MEDS: Tamsulosin HCL 0.4 MG CAPSULE PO (20:10)
[2023-04-28] MEDS: Sennosides 8.6 MG TABLET 17.2 MG PO (20:10)
[2023-04-28] MEDS: cloZAPine 100 MG TABLET 300 MG PO (20:11)
[2023-04-28] MEDS: polyethylene glycoL 3350 17 GM POWD.PACK PO (20:17)
[2023-04-28] MEDS: Atropine Sulfate 1 % Ophth Sol 2 ML BOTTLE 1 DROP SUBLINGUAL (20:24)
[2023-04-29] MEDS: Omeprazole 20 MG CAPSULE.DR PO ×2 (05:37→17:41)
[2023-04-29] MEDS: Docusate Sodium 100 MG CAPSULE 200 MG PO ×2 (08:31→20:31)
[2023-04-29] MEDS: LORazepam 1 MG TABLET PO ×3 (08:31→20:31)
[2023-04-29] MEDS: metFORMIN HCl ER 500 MG TAB.ER.24H PO (08:31)
[2023-04-29] MEDS: ARIPiprazole 5 MG TABLET PO (08:31)
[2023-04-29] MEDS: Sertraline HCL 100 MG TABLET PO ×2 (08:32→20:31)
[2023-04-29] MEDS: Lithium Carbonate 300 MG CAPSULE PO ×2 (08:32→20:31)
[2023-04-29 08:40] VITALS: BP 126/74; PULSE 75; RESP 18; TEMP 36.2; O2SAT 98
--- NOTE | 2023-04-29 10:55 | P.PNPSI_ITS ---
Subjective Subjective Date of Service: 04/29/23 Reason For Visit: Depression Interim History: met with patient. Discussed with Nursing. Chart reviewed. Overall has been bright and more engaged in the milieu. Reports feeling that he is doing well. Denies depression. Sleep energy and appetite okay. 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 Has been feeling constipated and reports MiraLax is usually helpful. Looking forward to hopefully discharge after the weekend. Medication Compliance: Yes Side effects from medications: No Attending Groups: Yes Review of Systems Acute medical concerns: No Review of Systems Review of Systems Constipation, reports MiraLax helpful Mental Status Exam Mental Status Exam Patient Appearance: Appropriate Patient Orientation: Person, Place, Time and Situation Level of Consciousness: Alert Patient Behavior: Talkative and Good Eye Contact Mood Description: Constricted Affect Description: Constricted Patient Cognition Impaired: No Ability to Follow Directions: Fair Speech Pattern: Spontaneous Speech, Soft-Spoken and Long Pauses Memory Description: Intact Hallucinations: None (denies) Delusions: Not Present Thought Process: Intact Thought Content: positive for Circumstantial, positive for Thought Blocking (??) and positive for Suicidal Ideation (denies) Depressive Symptoms: Low Self Esteem Judgement: Fair Diagnostics Vital Signs (24Hr): Vital Signs - 24 hr 04/28/23 17:21 04/29/23 08:40 Temperature 97.2 F 97.2 F Pulse Rate 73 75 Respiratory Rate 16 18 Blood Pressure 138/69 126/74 Pulse Oximetry 99 98 Oxygen Delivery Method Room Air Room Air BMI result Body Mass Index 31.7 Labs 04/16/23 18:26 04/24/23 08:36 Labs: Laboratory Results - last 48 hr 04/23/23 04/28/23 04/28/23 07:24 08:10 08:19 POC Glucose 105 Clozapine 432 Norclozapine 232 Tynan 0.78 Medications Medications Current Medications Acetaminophen (Acetaminophen 325 Mg Tablet) 650 mg PO Q6H PRN PRN Reason: Headache/Pain Mild Scale (1-3) Al Hydroxide/Mg Hydroxide (Magnesium Hydrox/Alum Hydrox 30 Ml Oral.Susp) 30 ml PO Q6H PRN PRN Reason: Heartburn/Nausea Aripiprazole (Aripiprazole 5 Mg Tablet) 5 mg PO DAILY [facility]RISTIN Last Admin: 04/29/23 08:31 Dose: 5 mg Atropine Sulfate (Atropine Sulfate 1 % Ophth Mallorie 2 Ml Bottle) 1 drop SUBLINGUAL Q4H PRN PRN Reason: Sialorrhea Last Admin: 04/28/23 20:24 Dose: 1 drop Clozapine (Clozapine 100 Mg Tablet) 300 mg PO BEDTIME [facility] Last Admin: 04/28/23 20:11 Dose: 300 mg Docusate Sodium (Docusate Sodium 100 Mg Capsule) 200 mg PO BID [facility] Last Admin: 04/29/23 08:31 Dose: 200 mg Hydroxyzine HCl (Hydroxyzine Hcl 25 Mg Tablet) 25 mg PO Q6H PRN PRN Reason: Anxiety [place] Carbonate ([place] Carbonate 300 Mg Capsule) 300 mg PO BID [facility] Last Admin: 04/29/23 08:32 Dose: 300 mg Lorazepam (Lorazepam 1 Mg Tablet) 1 mg PO TID [facility] Last Admin: 04/29/23 08:31 Dose: 1 mg Magnesium Hydroxide (Milk Of Magnesia 30 Ml Oral.Susp) 30 ml PO DAILY PRN PRN Reason: Constipation Last Admin: 04/21/23 09:59 Dose: 30 ml Metformin HCl (Metformin Hcl Er 500 Mg Tab.Er.24h) 500 mg PO DAILY [facility] Last Admin: 04/29/23 08:31 Dose: 500 mg Omeprazole (Omeprazole 20 Mg Capsule.Dr) 20 mg PO BID@0630,1630 [facility] Last Admin: 04/29/23 05:37 Dose: 20 mg Polyethylene Glycol (Polyethylene Glycol 3350 17 Gm Powd.Pack) 17 gm PO DAILY PRN PRN Reason: Constipation Last Admin: 04/28/23 20:17 Dose: 17 gm Senna (Sennosides 8.6 Mg Tablet) 17.2 mg PO BEDTIME [facility] Last Admin: 04/28/23 20:10 Dose: 17.2 mg Sertraline HCl (Sertraline Hcl 100 Mg Tablet) 100 mg PO BID [facility] Last Admin: 04/29/23 08:32 Dose: 100 mg Tamsulosin HCl (Tamsulosin Hcl 0.4 Mg Capsule) 0.4 mg PO BEDTIME [facility] Last Admin: 04/28/23 20:10 Dose: 0.4 mg Trazodone HCl (Trazodone Hcl 50 Mg Tablet) 50 mg PO BEDTIME MRX1 PRN PRN Reason: Insomnia Allergies Allergies Allergy/AdvReac Type Severity Reaction Status Date / Time No Known Allergies [NKA] Allergy Unknown NONE Verified 04/13/23 14:27 Assessment & Plan Assessment & Plan (1) Schizoaffective disorder, depressive type: Status: Acute Code(s): F25.1 - Schizoaffective disorder, depressive type Plan 57 yo male, to ER secondary to decompensation and lethargy. Hx of catatonia. Compliant with medicine in the community however his team reports decline prior to admission. Plan: Clozapine level. B12,Folate, Iron Profile Continue swallow eval recommendations NDD3, chopped/adv solids, think liquids, meds crushed in puree and total supervision meals/meds. Collateral contact- OP team, residence, family ECT consult if pt will agree. It has been effective for pt in the past. 04/20/23 Continue current tx. Further swallow eval to be decided. 04/21/23 Atropine opth drops SL 1 q4h prn sialorrhea sx Abilify 5 mg a.m. trial for augmentation of regime 04/22/23 continue tx plan 04/23/23 continue tx plan 04/24/23 GI Consult for dysphagia, sialorrhea, choking. Continue current regime. 04/25/23 Continue tx. 04/27/23 Continue tx 04/28/23 Continue tx 04/29: add MiraLax Reason for continued inpatient stay Substantial Risk for: rapid decompensation Time Spent With Patient Time: Total time managing care of this patient today ____ minutes.
[2023-04-29 12:38] LABS: Glucose, Whole Blood 144 mg/dL (60-115)
[2023-04-29] MEDS: polyethylene glycoL 3350 17 GM POWD.PACK PO (14:44)
[2023-04-29 18:55] VITALS: BP 119/58; PULSE 77; RESP 18; TEMP 36.3; O2SAT 99
[2023-04-29] MEDS: cloZAPine 100 MG TABLET 300 MG PO (20:31)
[2023-04-29] MEDS: Tamsulosin HCL 0.4 MG CAPSULE PO (20:31)
[2023-04-29] MEDS: Sennosides 8.6 MG TABLET 17.2 MG PO (20:31)
[2023-04-29] MEDS: Atropine Sulfate 1 % Ophth Sol 2 ML BOTTLE 1 DROP SUBLINGUAL (20:34)
[2023-04-30] MEDS: Omeprazole 20 MG CAPSULE.DR PO ×2 (06:18→17:18)
[2023-04-30 08:10] VITALS: BP 143/70; PULSE 72; RESP 18; TEMP 36.2; O2SAT 97
[2023-04-30 08:10] LABS: Neut%MD 63.3 %; Neutrophils Absolute Auto 4.8 x10*3/uL (2.0-8.3); WBCANC 7.6 X10*3/uL
[2023-04-30 08:29] LABS: Glucose, Whole Blood 90 mg/dL (60-115)
[2023-04-30] MEDS: Sertraline HCL 100 MG TABLET PO ×2 (08:43→20:30)
[2023-04-30] MEDS: metFORMIN HCl ER 500 MG TAB.ER.24H PO (08:43)
[2023-04-30] MEDS: Docusate Sodium 100 MG CAPSULE 200 MG PO ×2 (08:43→20:26)
[2023-04-30] MEDS: ARIPiprazole 5 MG TABLET PO (08:43)
[2023-04-30] MEDS: Lithium Carbonate 300 MG CAPSULE PO ×2 (08:43→20:25)
[2023-04-30] MEDS: polyethylene glycoL 3350 17 GM POWD.PACK PO (08:44)
[2023-04-30] MEDS: LORazepam 1 MG TABLET PO ×3 (08:44→20:26)
--- NOTE | 2023-04-30 12:12 | P.PNPSI_ITS ---
Subjective Subjective Date of Service: 04/30/23 Reason For Visit: Depression Interim History: Met with patient. Discussed with Nursing. Reports having a bowel movment today. Bright and in the milieu. Enjoyed talking about his apartment, playing golf in the [place] and local golf courses he likes. 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 Denies depression. Sleep energy and appetite okay. Looking forward to hopefully discharge after the weekend. Medication Compliance: Yes Side effects from medications: No Attending Groups: Yes Review of Systems Acute medical concerns: No Review of Systems Review of Systems Constipation- had bowel movement today Mental Status Exam Mental Status Exam Patient Appearance: Appropriate Patient Orientation: Person, Place, Time and Situation Level of Consciousness: Alert Patient Behavior: Talkative and Good Eye Contact Mood Description: Relaxed Affect Description: Happy Patient Cognition Impaired: No Ability to Follow Directions: Fair Speech Pattern: Spontaneous Speech, Soft-Spoken and Long Pauses Memory Description: Intact Diagnostics Vital Signs (24Hr): Vital Signs - 24 hr 04/29/23 18:55 04/30/23 08:10 Temperature 97.3 F 97.2 F Pulse Rate 77 72 Respiratory Rate 18 18 Blood Pressure 119/58 L 143/70 H Pulse Oximetry 99 97 Oxygen Delivery Method Room Air Room Air BMI result Body Mass Index 31.7 Labs 04/16/23 18:26 04/24/23 08:36 Labs: Laboratory Results - last 48 hr 04/23/23 04/29/23 04/30/23 07:24 12:31 07:35 Absolute Neuts (auto) 4.8 POC Glucose 144 H Clozapine 432 Norclozapine 232 04/30/23 08:21 Absolute Neuts (auto) POC Glucose 90 Clozapine Norclozapine Medications Medications Current Medications Acetaminophen (Acetaminophen 325 Mg Tablet) 650 mg PO Q6H PRN PRN Reason: Headache/Pain Mild Scale (1-3) Al Hydroxide/Mg Hydroxide (Magnesium Hydrox/Alum Hydrox 30 Ml Oral.Susp) 30 ml PO Q6H PRN PRN Reason: Heartburn/Nausea Aripiprazole (Aripiprazole 5 Mg Tablet) 5 mg PO DAILY [facility] Last Admin: 04/30/23 08:43 Dose: 5 mg Atropine Sulfate (Atropine Sulfate 1 % Ophth Mallorie 2 Ml Bottle) 1 drop SUBLINGUAL Q4H PRN PRN Reason: Sialorrhea Last Admin: 04/29/23 20:34 Dose: 1 drop Clozapine (Clozapine 100 Mg Tablet) 300 mg PO BEDTIME [facility] Last Admin: 04/29/23 20:31 Dose: 300 mg Docusate Sodium (Docusate Sodium 100 Mg Capsule) 200 mg PO BID [facility] Last Admin: 04/30/23 08:43 Dose: 200 mg Hydroxyzine HCl (Hydroxyzine Hcl 25 Mg Tablet) 25 mg PO Q6H PRN PRN Reason: Anxiety [place] Carbonate ([place] Carbonate 300 Mg Capsule) 300 mg PO BID [facility] Last Admin: 04/30/23 08:43 Dose: 300 mg Lorazepam (Lorazepam 1 Mg Tablet) 1 mg PO TID [facility] Last Admin: 04/30/23 08:44 Dose: 1 mg Magnesium Hydroxide (Milk Of Magnesia 30 Ml Oral.Susp) 30 ml PO DAILY PRN PRN Reason: Constipation Last Admin: 04/21/23 09:59 Dose: 30 ml Metformin HCl (Metformin Hcl Er 500 Mg Tab.Er.24h) 500 mg PO DAILY [facility] Last Admin: 04/30/23 08:43 Dose: 500 mg Omeprazole (Omeprazole 20 Mg Capsule.Dr) 20 mg PO BID@0630,1630 [facility] Last Admin: 04/30/23 06:18 Dose: 20 mg Polyethylene Glycol (Polyethylene Glycol 3350 17 Gm Powd.Pack) 17 gm PO DAILY PRN PRN Reason: Constipation Last Admin: 04/28/23 20:17 Dose: 17 gm Polyethylene Glycol (Polyethylene Glycol 3350 17 Gm Powd.Pack) 17 gm PO DAILY [facility] Last Admin: 04/30/23 08:44 Dose: 17 gm Senna (Sennosides 8.6 Mg Tablet) 17.2 mg PO BEDTIME [facility] Last Admin: 04/29/23 20:31 Dose: 17.2 mg Sertraline HCl (Sertraline Hcl 100 Mg Tablet) 100 mg PO BID [facility] Last Admin: 04/30/23 08:43 Dose: 100 mg Tamsulosin HCl (Tamsulosin Hcl 0.4 Mg Capsule) 0.4 mg PO BEDTIME [facility] Last Admin: 04/29/23 20:31 Dose: 0.4 mg Trazodone HCl (Trazodone Hcl 50 Mg Tablet) 50 mg PO BEDTIME MRX1 PRN PRN Reason: Insomnia Allergies Allergies Allergy/AdvReac Type Severity Reaction Status Date / Time No Known Allergies [NKA] Allergy Unknown NONE Verified 04/13/23 14:27 Assessment & Plan Assessment & Plan (1) Schizoaffective disorder, depressive type: Status: Acute Code(s): F25.1 - Schizoaffective disorder, depressive type Plan 57 yo male, to ER secondary to decompensation and lethargy. Hx of catatonia. Compliant with medicine in the community however his team reports decline prior to admission. Plan: Clozapine level. B12,Folate, Iron Profile Continue swallow eval recommendations NDD3, chopped/adv solids, think liquids, meds crushed in puree and total supervision meals/meds. Collateral contact- OP team, residence, family ECT consult if pt will agree. It has been effective for pt in the past. 04/20/23 Continue current tx. Further swallow eval to be decided. 04/21/23 Atropine opth drops SL 1 q4h prn sialorrhea sx Abilify 5 mg a.m. trial for augmentation of regime 04/22/23 continue tx plan 04/23/23 continue tx plan 04/24/23 GI Consult for dysphagia, sialorrhea, choking. Continue current regime. 04/25/23 Continue tx. 04/27/23 Continue tx 04/28/23 Continue tx 04/29: add MiraLax 04/30: no changes Reason for continued inpatient stay Substantial Risk for: rapid decompensation Time Spent With Patient Time: Total time managing care of this patient today ____ minutes.
[2023-04-30] MEDS: bisacodyL 5 MG TABLET.DR 10 MG PO (15:17)
[2023-04-30 18:00] VITALS: BP 136/68; PULSE 75; RESP 18; TEMP 36.7; O2SAT 98
[2023-04-30] MEDS: Tamsulosin HCL 0.4 MG CAPSULE PO (20:25)
[2023-04-30] MEDS: Sennosides 8.6 MG TABLET 17.2 MG PO (20:26)
[2023-04-30] MEDS: cloZAPine 100 MG TABLET 300 MG PO (20:26)
[2023-05-01] MEDS: Omeprazole 20 MG CAPSULE.DR PO ×2 (06:29→17:25)
[2023-05-01 08:26] LABS: Glucose, Whole Blood 93 mg/dL (60-115)
[2023-05-01 08:35] VITALS: BP 158/80; PULSE 75; RESP 16; TEMP 36.2; O2SAT 97
[2023-05-01] MEDS: metFORMIN HCl ER 500 MG TAB.ER.24H PO (08:42)
[2023-05-01] MEDS: LORazepam 1 MG TABLET PO ×3 (08:42→20:19)
[2023-05-01] MEDS: Lithium Carbonate 300 MG CAPSULE PO ×2 (08:42→20:20)
[2023-05-01] MEDS: ARIPiprazole 5 MG TABLET PO (08:42)
[2023-05-01] MEDS: polyethylene glycoL 3350 17 GM POWD.PACK PO (08:42)
[2023-05-01] MEDS: Sertraline HCL 100 MG TABLET PO ×2 (08:42→20:26)
[2023-05-01] MEDS: Docusate Sodium 100 MG CAPSULE 200 MG PO ×2 (08:42→20:20)
[2023-05-01 08:53] LABS: Creatinine Clr Calc Pharmacy 66.6; Estimated Glomerular Filt Rate 49
--- NOTE | 2023-05-01 15:06 | P.PNPSI_ITS ---
Subjective Subjective Date of Service: 05/01/23 Reason For Visit: Depression Subjective Notes: Conditional Voluntary Healthcare Proxy: No Guardianship: No Medical Problems Affecting Mental Status: No Interim History: Pt seen, discussed in team meeting. Pt visable in milieu, interactive, looking forward to discharge tomorrow and returning to work and activities. Denies medication SE. Discussed sialorrhea and current rx for atropine drops along with his OP nurses concern about using this prn at home. Pt agrees a tablet would be safer for him. As a result atropine was stopped, amitriptyline prn ordered for sialorrhea. Medication Compliance: Yes Side effects from medications: No Attending Groups: Yes Review of Systems Acute medical concerns: No Medical Review of Systems: unchanged Review of Systems Review of Systems Yes all other systems are reviewed and are negative (denies) Mental Status Exam Mental Status Exam Patient Appearance: Appropriate Patient Orientation: Person, Place, Time and Situation Level of Consciousness: Alert Patient Behavior: Talkative and Good Eye Contact Mood Description: Relaxed Affect Description: Calm Patient Cognition Impaired: No Ability to Follow Directions: Good Speech Pattern: Spontaneous Speech Memory Description: Intact Hallucinations: None Delusions: Not Present Thought Process: Goal Oriented Thought Content: positive for Goal Oriented Judgement: Good Diagnostics Vital Signs (24Hr): Vital Signs - 24 hr 04/30/23 18:00 05/01/23 08:35 Temperature 98.0 F 97.2 F Pulse Rate 75 75 Respiratory Rate 18 16 Blood Pressure 136/68 158/80 H Pulse Oximetry 98 97 Oxygen Delivery Method Room Air Room Air BMI result Body Mass Index 31.7 Labs 04/16/23 18:26 05/02/23 08:07 Labs: Laboratory Results - last 48 hr 04/30/23 04/30/23 05/01/23 07:35 08:21 08:23 Absolute Neuts (auto) 4.8 Hold Purple Top Creatinine Estim Creat Clear Calc Estimated GFR POC Glucose 90 93 05/01/23 08:28 Absolute Neuts (auto) Hold Purple Top SEE NOTE Creatinine 1.46 H Estim Creat Clear Calc 66.6 Estimated GFR 49 POC Glucose Medications Medications Current Medications Acetaminophen (Acetaminophen 325 Mg Tablet) 650 mg PO Q6H PRN PRN Reason: Headache/Pain Mild Scale (1-3) Al Hydroxide/Mg Hydroxide (Magnesium Hydrox/Alum Hydrox 30 Ml Oral.Susp) 30 ml PO Q6H PRN PRN Reason: Heartburn/Nausea Amitriptyline HCl (Amitriptyline Hcl 10 Mg Tablet) 10 mg PO BEDTIME PRN PRN Reason: sialorrhea Aripiprazole (Aripiprazole 5 Mg Tablet) 5 mg PO DAILY [facility] Last Admin: 05/01/23 08:42 Dose: 5 mg Bisacodyl (Bisacodyl 5 Mg Tablet.) 10 mg PO DAILY PRN PRN Reason: Constipation Clozapine (Clozapine 100 Mg Tablet) 300 mg PO BEDTIME [facility] Last Admin: 04/30/23 20:26 Dose: 300 mg Docusate Sodium (Docusate Sodium 100 Mg Capsule) 200 mg PO BID [facility] Last Admin: 05/01/23 08:42 Dose: 200 mg Hydroxyzine HCl (Hydroxyzine Hcl 25 Mg Tablet) 25 mg PO Q6H PRN PRN Reason: Anxiety [place] Carbonate ([place] Carbonate 300 Mg Capsule) 300 mg PO BID [facility] Last Admin: 05/01/23 08:42 Dose: 300 mg Lorazepam (Lorazepam 1 Mg Tablet) 1 mg PO TID [facility] Last Admin: 05/01/23 08:42 Dose: 1 mg Magnesium Hydroxide (Milk Of Magnesia 30 Ml Oral.Susp) 30 ml PO DAILY PRN PRN Reason: Constipation Last Admin: 04/21/23 09:59 Dose: 30 ml Metformin HCl (Metformin Hcl Er 500 Mg Tab.Er.24h) 500 mg PO DAILY [facility] Last Admin: 05/01/23 08:42 Dose: 500 mg Omeprazole (Omeprazole 20 Mg Capsule.) 20 mg PO BID@0630,1630 [facility] Last Admin: 05/01/23 06:29 Dose: 20 mg Polyethylene Glycol (Polyethylene Glycol 3350 17 Gm Powd.Pack) 17 gm PO DAILY PRN PRN Reason: Constipation Last Admin: 04/28/23 20:17 Dose: 17 gm Polyethylene Glycol (Polyethylene Glycol 3350 17 Gm Powd.Pack) 17 gm PO DAILY [facility] Last Admin: 05/01/23 08:42 Dose: 17 gm Senna (Sennosides 8.6 Mg Tablet) 17.2 mg PO BEDTIME [facility] Last Admin: 04/30/23 20:26 Dose: 17.2 mg Sertraline HCl (Sertraline Hcl 100 Mg Tablet) 100 mg PO BID [facility] Last Admin: 05/01/23 08:42 Dose: 100 mg Tamsulosin HCl (Tamsulosin Hcl 0.4 Mg Capsule) 0.4 mg PO BEDTIME [facility] Last Admin: 04/30/23 20:25 Dose: 0.4 mg Trazodone HCl (Trazodone Hcl 50 Mg Tablet) 50 mg PO BEDTIME MRX1 PRN PRN Reason: Insomnia Allergies Allergies Allergy/AdvReac Type Severity Reaction Status Date / Time No Known Allergies [NKA] Allergy Unknown NONE Verified 04/13/23 14:27 Assessment & Plan Assessment & Plan (1) Schizoaffective disorder, depressive type: Status: Acute Code(s): F25.1 - Schizoaffective disorder, depressive type Plan 57 yo male, to ER secondary to decompensation and lethargy. Hx of catatonia. Compliant with medicine in the community however his team reports decline prior to admission. Plan: Clozapine level. B12,Folate, Iron Profile Continue swallow eval recommendations NDD3, chopped/adv solids, think liquids, meds crushed in puree and total supervision meals/meds. Collateral contact- OP team, residence, family ECT consult if pt will agree. It has been effective for pt in the past. 04/20/23 Continue current tx. Further swallow eval to be decided. 04/21/23 Atropine opth drops SL 1 q4h prn sialorrhea sx Abilify 5 mg a.m. trial for augmentation of regime 04/22/23 continue tx plan 04/23/23 continue tx plan 04/24/23 GI Consult for dysphagia, sialorrhea, choking. Continue current regime. 04/25/23 Continue tx. 04/27/23 Continue tx 04/28/23 Continue tx 04/29: add MiraLax 04/30: no changes 05/01/23: DC Atropine drops Amitriptyline 10 mg daily prn sialorrhea Discharge for 05/02/23. Patient educated on: medication risk/benefits Informed Consent: understands Reason for continued inpatient stay Substantial Risk for: stable for discharge Time Spent With Patient Time: Total time managing care of this patient today ____ minutes.
[2023-05-01 18:00] VITALS: BP 127/79; PULSE 77; RESP 16; TEMP 36.4; O2SAT 94
[2023-05-01] MEDS: cloZAPine 100 MG TABLET 300 MG PO (20:18)
[2023-05-01] MEDS: Sennosides 8.6 MG TABLET 17.2 MG PO (20:19)
[2023-05-01] MEDS: Tamsulosin HCL 0.4 MG CAPSULE PO (20:26)
[2023-05-02] MEDS: Omeprazole 20 MG CAPSULE.DR PO (06:13)
[2023-05-02 08:00] VITALS: BP 159/73; PULSE 87; RESP 16; TEMP 36.3; O2SAT 99
[2023-05-02 08:15] LABS: Glucose, Whole Blood 89 mg/dL (60-115)
[2023-05-02 08:20] LABS: Lithium 0.68 mmol/L (0.60-1.20)
[2023-05-02 08:34] LABS: Anion Gap 13 (12-20); Blood Urea Nitrogen 27 mg/dL (9-16); Carbon Dioxide 29 mmol/L (22-29); Chloride 106 mmol/L (96-108); Creatinine Clr Calc Pharmacy 70.9; Estimated Glomerular Filt Rate 53; Glucose Random 101 mg/dL (60-115); Potassium 4.5 mmol/L (3.3-5.1); Sodium 143 mmol/L (135-145)
[2023-05-02] MEDS: Sertraline HCL 100 MG TABLET PO (08:34)
[2023-05-02] MEDS: Lithium Carbonate 300 MG CAPSULE PO (08:35)
[2023-05-02] MEDS: metFORMIN HCl ER 500 MG TAB.ER.24H PO (08:35)
[2023-05-02] MEDS: ARIPiprazole 5 MG TABLET PO (08:35)
[2023-05-02] MEDS: LORazepam 1 MG TABLET PO (08:35)
[2023-05-02] MEDS: Docusate Sodium 100 MG CAPSULE 200 MG PO (08:35)
[2023-05-02] MEDS: polyethylene glycoL 3350 17 GM POWD.PACK PO (08:35)
[2023-05-02 08:49] LABS: Thyroid Stimulating Hormone 1.07 uIU/mL (0.32-4.0)
--- NOTE | 2023-05-02 09:55 | P.DS_ITS ---
DS: Providers Provider Date of Service: 05/02/23 Date of admission: 04/17/23 20:17 Date of discharge: 05/02/23 Primary care physician: Jonn Smith MD Admitting clinician: Jennifer Prasad Attending physician on admission: Steven Huerta Consults: 04/24/23 16:39 Consult to Gastroenterology Routine Consulting Provider: [facility] Reason for consultation: dysphagia,sialorrhea-following swallow consult directions, ?Ba swallow Has provider been notified: No Attending physician on discharge: Steven Huerta Discharging clinician: Jennifer Prasad DS: Diagnosis Discharge Diagnosis (1) Schizoaffective disorder, depressive type: Status: Acute DS: Medications Discharge Medications Home Medications: Home Medications Medication Instructions Recorded Confirmed tamsulosin 0.4 mg capsule 0.4 mg PO QPM 01/04/23 04/17/23 Previous Rx's Medication Instructions Recorded docusate sodium 100 mg capsule 200 mg (2 x 100 mg) PO BID #120 12/18/22 caps metformin 500 mg tablet,extended 500 mg PO DAILY #30 tabs 12/26/22 release 24 hr omeprazole 20 mg capsule,delayed 20 mg PO BID@0630,1630 30 days #60 03/17/23 release caps sennosides 8.6 mg tablet (Senna 17.2 mg (2 x 8.6 mg) PO BEDTIME 04/11/23 Lax) #90 tabs aripiprazole 5 mg tablet (Abilify) 5 mg PO DAILY #30 tabs 05/02/23 clozapine 100 mg tablet 300 mg (3 x 100 mg) PO BEDTIME #21 05/02/23 tabs lithium carbonate 300 mg capsule 300 mg PO BID #60 caps 05/02/23 lorazepam 1 mg tablet 1 mg PO TID #90 tabs 05/02/23 polyethylene glycol 3350 17 17 g PO DAILY #119 grams 05/02/23 gram/dose oral powder (Miralax) sertraline 100 mg tablet 100 mg PO BID #60 tabs 05/02/23 Mental Status Exam Mental Status Exam Patient Appearance: Appropriate Patient Orientation: Person, Place, Time and Situation Level of Consciousness: Alert Patient Behavior: Talkative and Good Eye Contact Mood Description: Relaxed Affect Description: Calm Patient Cognition Impaired: No Ability to Follow Directions: Good Speech Pattern: Spontaneous Speech Memory Description: Intact Hallucinations: None Delusions: Not Present Thought Process: Goal Oriented Thought Content: positive for Goal Oriented Judgement: Good Data Data Completed and Pending Completed studies during hospitalization [Text1]: 04/23/23 04/25/23 04/25/23 07:24 12:17 16:47 Absolute Neuts (auto) Hold Purple Top Sodium Potassium Chloride Carbon Dioxide Anion Gap BUN Creatinine Estim Creat Clear Calc Estimated GFR POC Glucose 98 96 Random Glucose Calcium TSH Clozapine 432 Norclozapine 232 Meridian 04/26/23 04/27/23 04/28/23 08:01 08:08 08:10 Absolute Neuts (auto) Hold Purple Top Sodium Potassium Chloride Carbon Dioxide Anion Gap BUN Creatinine Estim Creat Clear Calc Estimated GFR POC Glucose 97 104 Random Glucose Calcium TSH Clozapine Norclozapine Meridian 0.78 04/28/23 04/29/23 04/30/23 08:19 12:31 07:35 Absolute Neuts (auto) 4.8 Hold Purple Top Sodium Potassium Chloride Carbon Dioxide Anion Gap BUN Creatinine Estim Creat Clear Calc Estimated GFR POC Glucose 105 144 H Random Glucose Calcium TSH Clozapine Norclozapine Meridian 04/30/23 05/01/23 05/01/23 08:21 08:23 08:28 Absolute Neuts (auto) Hold Purple Top SEE NOTE Sodium Potassium Chloride Carbon Dioxide Anion Gap BUN Creatinine 1.46 H Estim Creat Clear Calc 66.6 Estimated GFR 49 POC Glucose 90 93 Random Glucose Calcium TSH Clozapine Norclozapine Meridian 05/02/23 05/02/23 08:07 08:11 Absolute Neuts (auto) Hold Purple Top Sodium 143 Potassium 4.5 Chloride 106 Carbon Dioxide 29 Anion Gap 13 BUN 27 H Creatinine 1.37 Estim Creat Clear Calc 70.9 Estimated GFR 53 POC Glucose 89 Random Glucose 101 Calcium 9.0 TSH 1.07 Clozapine Norclozapine Meridian 0.68 DS: Summary Hospital Course Hospital Course: 57 yo male, history of schizoaffective disorder, depressed, admitted to adult psychiatry for exacerbation of symptoms of depression. Medications were reviewed and adjusted. Clozapine was continued with clozapine levels of 550 and 432 and norclozapine levels of 222 and 232. WBC 8.6 on 04/16/23 and ANC 4.8 on 04/30/23. Meridian was maintained with levels of 0.78 and 0.68 05/02/22. Abilify 5 mg was initiated for antidepressant agumentation. Amitriptyline prn was added for sialorrhea. Pt, upon admission reported symptoms of difficulty swallowing and choking on food while eating. Extensive speech/swallow evaluations were completed. It is recommended pt have a regular diet with thin liquids, medications taken whole with liquid or puree. Pt was educated regarding avoiding packing his mouth due to choking risk, to sit up straight when eading/drinking, take small bites/sips and to alternate liquids and solids. He was instructed to avoid hard, dry and sticky foods. Pt increased his participation in milieu and improved with increased connection. Care was discussed with OP team who report an increase in symptoms since the beginning of the pandemic possibly due to an increase in social isolation. They will work with him on this in out patient to increase his connections to social activities. Status at Discharge Functional status at discharge: independent ambulation Overall status at discharge: patient is progressing back to baseline Time Spent with Patient Time attestation: Total time managing care of this patient today ____ minutes. Time spent: Greater than 30 minutes Discharge Plan Discharge Anticipated Discharge Date/Time: 05/02/23 12:00 Patient Disposition: Home, Self-Care Discharge Diagnosis: Schizoaffective Disorder, Depressed Referrals: [place] [facility] [Other] - 1 Week (fax- [phone] RN will start again following D/C. ) [facility] Psychiatry w Og Lomas [Other] - 1 Week [facility] radha Alcantara [Other] - 1 Week Debi Ascencio PA [Physician Geophysical Party Chief] - 05/17/23 1:00 pm (IN OFFICE 2 [facility] [address]) Jonn Smith MD [Primary Care Provider] - 07/20/23 2:00 pm (IN OFFICE) Discharge Medications: New aripiprazole [Abilify] 5 mg Tablet 5 mg PO DAILY Qty: 30 0RF polyethylene glycol 3350 [Miralax] 17 gram/dose powder 17 g PO DAILY Qty: 119 0RF amitriptyline 10 mg tablet 10 mg PO DAILY PRN (Reason: sialorrhea) Qty: 14 1RF Continued docusate sodium 100 mg capsule 200 mg PO BID Qty: 120 3RF metformin 500 mg tablet extended release 24 hr 500 mg PO DAILY Qty: 30 1RF omeprazole 20 mg capsule,delayed release(DR/EC) 20 mg PO BID@0630,1630 30 Days Qty: 60 0RF sennosides [Senna Lax] 8.6 mg tablet 17.2 mg PO BEDTIME Qty: 90 3RF clozapine 100 mg Tablet 300 mg PO BEDTIME Qty: 21 0RF sertraline 100 mg tablet 100 mg PO BID Qty: 60 0RF lorazepam 1 mg Tablet 1 mg PO TID Qty: 90 0RF tamsulosin 0.4 mg capsule 0.4 mg PO QPM Changed lithium carbonate 300 mg capsule 300 mg PO BID Qty: 60 0RF Discharge Orders: Discharge Order (Routine); Ordered 05/02/23 Ordered By: Jennifer Prasad Diet: Diabetic diet Activity on Discharge: As tolerated Stand Alone Forms: Patient Portal Discharge page, Community Support Care Plan Goals: Mood and Behavioral Stabilization Health Concerns: Mood and Behavioral Stabilization Plan of Treatment: Attend scheduled appointments Take medications as directed Assessment: Scheduled discharge. Pt interviewed prior to discharge and found to be fully oriented and without SI/HI. Pt has insight and demonstrates good judgment in terms of wanting to pursue treatment. Pt is not in imminent risk of harm to self or others and has a safety plan that includes presenting to the closest ER or calling 911 if feeling unsafe. Pt has been observed closely by nursing and unit staff throughout admission. Pt has not engaged in any behaviors that suggest dangerousness to self or others and has demonstrated appropriate behaviors and impulse control.
== END 2023-05-02 11:36 | disposition home or self-care (01) | DRG 885 ==
LOC: HO.ED 04-17 16:23 → HO.PM5 04-17 20:24
PROVIDERS: Admitting Provider Psychiatry & Neurology Psychiatry; Emergency Provider Emergency Medicine; PCP Internal Medicine; Visit Provider Clinical Nurse Specialist Psychiatric/Mental Health, Adult
DX: F25.1 Schizoaffective disorder, depressive type (principal); R13.10 Dysphagia, unspecified; K11.7 Disturbances of salivary secretion; Z20.822 Contact with and (suspected) exposure to COVID-19; Z79.899 Other long term (current) drug therapy
CPT/HCPCS: 36415; 80048; 80076; 80159; 80178; 80307; 81003; 82140; 82550; 82565; 82607; 82746; 82803; 82947; 83540; 83735; 84443; 85025; 85048; 87635; 92507; 92610; 93005; 99285; S9485

== ENCOUNTER → 2023-04-16 17:48 | Outpatient (BNV) | payer MEDICARE, MEDICAID, SELFPAY | PROVIDERS: Emergency Provider Emergency Medicine; PCP Internal Medicine; Visit Provider Internal Medicine Cardiovascular Disease | DX: R94.31 Abnormal electrocardiogram [ECG] [EKG] (principal) | CPT/HCPCS: 93010 ==

== ENCOUNTER → 2023-04-17 20:17 | Outpatient (BNV) | payer MEDICARE, MEDICAID, SELFPAY | PROVIDERS: Admitting Provider Psychiatry & Neurology Psychiatry; Emergency Provider Emergency Medicine; PCP Internal Medicine; Visit Provider Clinical Nurse Specialist Psychiatric/Mental Health, Adult | DX: F25.1 Schizoaffective disorder, depressive type (principal) | CPT/HCPCS: 90792; 99231; 99232; 99239 ==

== ENCOUNTER 2023-05-04 12:24 | Outpatient (REF) | payer MEDICARE, MEDICAID, SELFPAY ==
[2023-05-04 12:38] LABS: MANUAL DIFF FLAG NO
[2023-05-04 13:37] LABS: Hemoglobin 12.2 g/dl (14.0-18.0); Imm Gran Abs Auto 0.04 X10*3/uL (0.00-0.03); Imm Gran Pct Auto 0.6 % (0.0-0.4); Lymphocytes Absolute Auto 1.3 X10*3/uL (1.2-4.9); Lymphocytes Percent Auto 18.5 % (20-40); Mean Corpuscular HGB Conc 32.1 g/dl (31.0-36.0); Mean Corpuscular Hemoglobin 28.7 pg (27.0-33.0); Mean Corpuscular Volume 89.4 fL (80.0-98.0); Mean Platelet Volume 11.5 fL (9.4-12.4); Monocytes Absolute Auto 0.5 X10*3/uL (0.1-1.2); Monocytes Percent Auto 6.3 % (2-11); Neutrophils Absolute Auto 5.4 x10*3/uL (2.0-8.3); Neutrophils Percent Auto 74.6 % (45-73); Platelet Count 168 X10*3/uL (160-400); Red Blood Count 4.25 X10*6/uL (4.60-5.80); Red Cell Distribution Width 13.4 % (11.0-16.0); White Blood Count 7.2 X10*3/uL (4.8-10.8)
== END 2023-05-04 12:25 | disposition home or self-care (01) ==
LOC: HO.LABR 12:24
PROVIDERS: PCP Internal Medicine; Visit Provider Clinical Nurse Specialist Psychiatric/Mental Health, Adult
DX: Z79.899 Other long term (current) drug therapy (principal)
CPT/HCPCS: 36415; 85025

== ENCOUNTER 2023-05-29 12:49 | Outpatient (REF) | payer MEDICARE, MEDICAID, SELFPAY ==
[2023-05-29 13:04] LABS: MANUAL DIFF FLAG NO
[2023-05-29 13:51] LABS: Basophils Percent Auto 0.1 % (0-2); Hematocrit 41.4 % (42.0-52.0); Hemoglobin 12.8 g/dl (14.0-18.0); Imm Gran Abs Auto 0.05 X10*3/uL (0.00-0.03); Imm Gran Pct Auto 0.6 % (0.0-0.4); Lymphocytes Absolute Auto 1.3 X10*3/uL (1.2-4.9); Lymphocytes Percent Auto 16.4 % (20-40); Mean Corpuscular HGB Conc 30.9 g/dl (31.0-36.0); Mean Corpuscular Hemoglobin 28.4 pg (27.0-33.0); Mean Platelet Volume 12.2 fL (9.4-12.4); Monocytes Absolute Auto 0.5 X10*3/uL (0.1-1.2); Monocytes Percent Auto 5.7 % (2-11); Neut%MD 77.2 %; Neutrophils Absolute Auto 6.3 x10*3/uL (2.0-8.3); Neutrophils Percent Auto 77.2 % (45-73); Platelet Count 128 X10*3/uL (160-400); Red Cell Distribution Width 13.2 % (11.0-16.0); WBCANC 8.1 X10*3/uL; White Blood Count 8.1 X10*3/uL (4.8-10.8)
== END 2023-05-29 12:50 | disposition home or self-care (01) ==
LOC: HO.LABR 12:49
PROVIDERS: Visit Provider Clinical Nurse Specialist Psychiatric/Mental Health, Adult
DX: Z79.899 Other long term (current) drug therapy (principal)
CPT/HCPCS: 36415; 85025

== ENCOUNTER 2023-06-28 15:06 | Outpatient (REF) | payer MEDICARE, MEDICAID, SELFPAY ==
[2023-06-28 15:25] LABS: MANUAL DIFF FLAG NO
[2023-06-28 17:37] LABS: Basophils Percent Auto 0.1 % (0-2); Hematocrit 42.1 % (42.0-52.0); Hemoglobin 13.2 g/dl (14.0-18.0); Imm Gran Abs Auto 0.04 X10*3/uL (0.00-0.03); Imm Gran Pct Auto 0.5 % (0.0-0.4); Lymphocytes Absolute Auto 1.4 X10*3/uL (1.2-4.9); Lymphocytes Percent Auto 16.9 % (20-40); Mean Corpuscular HGB Conc 31.4 g/dl (31.0-36.0); Mean Corpuscular Hemoglobin 28.4 pg (27.0-33.0); Mean Corpuscular Volume 90.5 fL (80.0-98.0); Mean Platelet Volume 12.1 fL (9.4-12.4); Monocytes Absolute Auto 0.5 X10*3/uL (0.1-1.2); Monocytes Percent Auto 6.2 % (2-11); Neutrophils Absolute Auto 6.4 x10*3/uL (2.0-8.3); Neutrophils Percent Auto 76.3 % (45-73); Platelet Count 173 X10*3/uL (160-400); Red Blood Count 4.65 X10*6/uL (4.60-5.80); Red Cell Distribution Width 13.2 % (11.0-16.0); White Blood Count 8.3 X10*3/uL (4.8-10.8)
== END 2023-06-28 15:07 | disposition home or self-care (01) ==
LOC: HO.LAB 15:06
PROVIDERS: PCP Internal Medicine; Visit Provider Clinical Nurse Specialist Psychiatric/Mental Health, Adult
DX: Z79.899 Other long term (current) drug therapy (principal)
CPT/HCPCS: 36415; 85025

== ENCOUNTER 2023-07-07 15:16 | Outpatient (REF) | payer MEDICARE, MEDICAID, SELFPAY ==
[2023-07-07 15:39] LABS: Lithium 0.91 mmol/L (0.60-1.20)
[2023-07-12 05:43] LABS: Clozapine (Clozaril) 278 mcg/L; Norclozapine 204 mcg/L (25-400)
== END 2023-07-07 15:17 | disposition home or self-care (01) ==
LOC: HO.LAB 15:16
PROVIDERS: PCP Internal Medicine; Visit Provider Clinical Nurse Specialist Psychiatric/Mental Health, Adult
DX: Z79.899 Other long term (current) drug therapy (principal)
CPT/HCPCS: 36415; 80159; 80178

== ENCOUNTER 2023-07-20 13:56 | Outpatient (AMB) | payer MEDICARE, MEDICAID, SELFPAY ==
--- NOTE | 2023-07-20 14:05 | A.OFFPC_ITS ---
Vital Signs 07/20/23 14:10 Height 5 ft 10 in Weight 220 lb 6 oz BMI 31.6 BP 122/62 Blood Pressure Location Lt brachial Position Sitting Pulse 75 Pulse Source Pulse Oximeter Pulse Oximetry (%) 96 Oxygen Delivery Method Room Air Intake Visit Reasons: 3 month f/u Intake Note: Patient is here to follow up on DM, HTN, PPH. Residential Appliance Repair Technician Required: No Passenger Elevator Operator: Not Required per policy Accompanied by: Self / Same As Patient Allergies No Known Allergies [NKA] Allergy (Unknown, Verified 07/20/23 14:47) NONE Medication List - Last Reconciled 07/20/23 by Jonn Smith MD amitriptyline 10 mg PO DAILY PRN aripiprazole (Abilify) 5 mg PO DAILY clozapine 300 mg (3 x 100 mg) PO BEDTIME docusate sodium 200 mg (2 x 100 mg) PO BID lithium carbonate 300 mg PO BID lorazepam 1 mg PO TID metformin ER 500 mg PO DAILY omeprazole 20 mg PO BID@0630,1630 30 days polyethylene glycol 3350 (Miralax) 17 grams PO DAILY sennosides (Senna Lax) 17.2 mg (2 x 8.6 mg) PO BEDTIME sertraline 100 mg PO BID tamsulosin 0.4 mg PO QPM Tobacco use date assessed: 07/20/23 Dental Screening Dental Screen Date: 04/13/23 HPI 3 month f/u HPI Details 58-year-old male presents to the office to discuss his medical condition. He comes alone to the office. Patient has schizophrenia that is at baseline. He is able to drive and do certain activities independently. Medications are still actively administered to him. He is able to sleep well. [facility] Medical History Mild sleep apnea Nocturnal hypoxia Routine medical exam Joint inflammation of right hand and wrist Status post fall Adult general medical exam Screening for colon cancer Screening for prostate cancer Cough Schizophrenia, catatonic BPH (benign prostatic hyperplasia) Essential (primary) hypertension Diabetes mellitus Surgical History History of colonoscopy History of tooth extraction History of root canal procedure Family History Mother Cancer Father Kidney agenesis Social History Household Members: None Housing: Apartment Do you presently have visiting nurse or other home services: Yes Alcohol intake: former Comment: 1:1 Patient Tobacco Use Status: Never used Tobacco e-Cigarette/Vaping Use: Never Used Second Hand Smoke Exposure: No service: No Current occupational status: employed Sexual orientation: Straight/Heterosexual Cognitive needs: No Hearing needs: No Vision needs: No Questionnaire Thrive Questionnaire Date Thrive assessed: 05/01/23 JONAH-7 AMB Questionnaire JONAH-7 Date JONAH - 7 assessed: 04/13/23 Source: Developed by Drs. Jacob Bates, Farrah Scott, Jose Martin Powell and colleagues, with an educational brigid from [employer]. Physical exam (Primary Care) Vital Signs: Last Vital Signs Pulse 75 07/20/23 14:10 BP 122/62 07/20/23 14:10 Pulse Ox 96 07/20/23 14:10 Oxygen Delivery Method Room Air 07/20/23 14:10 BMI result Body Mass Index 31.6 Tobacco/Smoking Status: Tobacco use Status Tobacco use date assessed 07/20/23 07/20/23 14:15 Patient Tobacco Use Status Never used Tobacco 07/20/23 14:15 e-Cigarette/Vaping Use Never Used 07/20/23 14:15 Thrive Assessment: Date of Thrive Assessment Date Thrive assessed 05/01/23 07/20/23 14:15 Const General: cooperative and healthy appearing Nutritional Appearance: well nourished Orientation/consciousness: patient oriented x3 Limitations: no limitations HENMT Head: Yes normal to inspection Eyes General: appearance normal, both eyes and all related structures Neck Neck: Yes normal visual inspection Chest Chest palpation & inspection: normal palpation of entire chest wall Resp Effort & Inspection: normal respiratory effort Neuro General: patient oriented x3 Results AMB Hemoglobin A1c AMB Hemoglobin A1c 5.1 % Last Edit by CORRY Harris on 07/20/23 14:23 Results Reviewed Results Reviewed: Laboratory Last Values Hgb A1c (Clinic) 5.1 % (4.0-6.0) 07/20/23 14:05 Assessment and Plan Assessment & Plan (1) Diabetes mellitus: Code(s): E11.9 - Type 2 diabetes mellitus without complications Qualifiers: Diabetes mellitus type: type 2 Diabetes mellitus emt intermediate insulin use: without emt intermediate use Diabetes mellitus complication status: with hyperglycemia Qualified Code(s): E11.65 - Type 2 diabetes mellitus with hyperglycemia Plan: Condition is stable. Continue current medications. (2) Essential hypertension: Code(s): I10 - Essential (primary) hypertension Plan: BP is in range. Continue current medications (3) Schizoaffective disorder, depressive type: Code(s): F25.1 - Schizoaffective disorder, depressive type Plan: At baseline. Continue medications at same dosage. Orders: Orders AMB Hemoglobin A1c Today E11.65 - Type 2 diabetes mellitus with hyperglycemia Medications: Refilled metformin ER 500 mg PO DAILY 30 tabs 1RF E11.65 - Type 2 diabetes mellitus with hyperglycemia polyethylene glycol 3350 (Miralax) 17 grams PO DAILY 119 grams 0RF Coding Level of Care Code Est Pt Level 4 (10010) Diagnoses Type 2 diabetes mellitus with hyperglycemia, without long-term current use of insulin E11.65 Diabetes mellitus type: type 2 Diabetes mellitus intermediate insulin use: without intermediate use Diabetes mellitus complication status: with hyperglycemia Essential hypertension I10 Schizoaffective disorder, depressive type F25.1
[2023-07-20 14:10] VITALS: BP 122/62; PULSE 75; O2SAT 96; BMI 31.6
== END 2023-07-20 14:50 | disposition home or self-care (01) ==
PROVIDERS: PCP Internal Medicine; Visit Provider Internal Medicine
DX: E11.65 Type 2 diabetes mellitus with hyperglycemia (principal); I10 Essential (primary) hypertension; F25.1 Schizoaffective disorder, depressive type
CPT/HCPCS: 83036; 99214

== ENCOUNTER 2023-08-17 13:49 | Outpatient (REF) | payer MEDICARE, MEDICAID, SELFPAY ==
[2023-08-17 14:05] LABS: MANUAL DIFF FLAG NO
[2023-08-17 14:53] LABS: Basophils Percent Auto 0.1 % (0-2); Hematocrit 40.7 % (42.0-52.0); Hemoglobin 12.6 g/dl (14.0-18.0); Imm Gran Abs Auto 0.05 X10*3/uL (0.00-0.03); Imm Gran Pct Auto 0.7 % (0.0-0.4); Lymphocytes Absolute Auto 1.6 X10*3/uL (1.2-4.9); Lymphocytes Percent Auto 21.5 % (20-40); Mean Corpuscular Hemoglobin 28.1 pg (27.0-33.0); Mean Corpuscular Volume 90.8 fL (80.0-98.0); Mean Platelet Volume 10.9 fL (9.4-12.4); Monocytes Absolute Auto 0.6 X10*3/uL (0.1-1.2); Monocytes Percent Auto 7.6 % (2-11); Neutrophils Absolute Auto 5.3 x10*3/uL (2.0-8.3); Neutrophils Percent Auto 70.1 % (45-73); Platelet Count 186 X10*3/uL (160-400); Red Blood Count 4.48 X10*6/uL (4.60-5.80); Red Cell Distribution Width 13.7 % (11.0-16.0); White Blood Count 7.5 X10*3/uL (4.8-10.8)
== END 2023-08-17 13:50 | disposition home or self-care (01) ==
LOC: HO.LABR 13:49
PROVIDERS: PCP Internal Medicine; Visit Provider Clinical Nurse Specialist Psychiatric/Mental Health, Adult
DX: Z79.899 Other long term (current) drug therapy (principal)
CPT/HCPCS: 36415; 85025

== ENCOUNTER 2023-09-15 11:38 | Outpatient (REF) | payer MEDICARE, MEDICAID, SELFPAY ==
[2023-09-15 12:08] LABS: MANUAL DIFF FLAG NO
[2023-09-15 12:34] LABS: Basophils Percent Auto 0.1 % (0-2); Hematocrit 38.8 % (42.0-52.0); Hemoglobin 12.2 g/dl (14.0-18.0); Imm Gran Abs Auto 0.05 X10*3/uL (0.00-0.03); Imm Gran Pct Auto 0.7 % (0.0-0.4); Lymphocytes Absolute Auto 1.5 X10*3/uL (1.2-4.9); Lymphocytes Percent Auto 20.6 % (20-40); Mean Corpuscular HGB Conc 31.4 g/dl (31.0-36.0); Mean Corpuscular Hemoglobin 27.6 pg (27.0-33.0); Mean Corpuscular Volume 87.8 fL (80.0-98.0); Monocytes Absolute Auto 0.5 X10*3/uL (0.1-1.2); Monocytes Percent Auto 6.9 % (2-11); Neutrophils Absolute Auto 5.1 x10*3/uL (2.0-8.3); Neutrophils Percent Auto 71.7 % (45-73); Platelet Count 185 X10*3/uL (160-400); Red Blood Count 4.42 X10*6/uL (4.60-5.80); Red Cell Distribution Width 13.2 % (11.0-16.0); White Blood Count 7.1 X10*3/uL (4.8-10.8)
== END 2023-09-15 11:39 | disposition home or self-care (01) ==
LOC: HO.LABR 11:38
PROVIDERS: PCP Internal Medicine; Visit Provider Clinical Nurse Specialist Psychiatric/Mental Health, Adult
DX: Z79.899 Other long term (current) drug therapy (principal)
CPT/HCPCS: 36415; 85025

== ENCOUNTER 2023-10-13 12:08 | Outpatient (REF) | payer MEDICARE, MEDICAID, SELFPAY ==
[2023-10-13 12:25] LABS: MANUAL DIFF FLAG NO
[2023-10-13 12:41] LABS: Basophils Percent Auto 0.1 % (0-2); Hematocrit 40.5 % (42.0-52.0); Hemoglobin 12.8 g/dl (14.0-18.0); Imm Gran Abs Auto 0.07 X10*3/uL (0.00-0.03); Imm Gran Pct Auto 0.7 % (0.0-0.4); Lymphocytes Absolute Auto 1.3 X10*3/uL (1.2-4.9); Lymphocytes Percent Auto 12.7 % (20-40); Mean Corpuscular HGB Conc 31.6 g/dl (31.0-36.0); Mean Corpuscular Hemoglobin 28.2 pg (27.0-33.0); Mean Corpuscular Volume 89.2 fL (80.0-98.0); Mean Platelet Volume 10.7 fL (9.4-12.4); Monocytes Absolute Auto 0.7 X10*3/uL (0.1-1.2); Monocytes Percent Auto 6.5 % (2-11); Neutrophils Absolute Auto 8.5 x10*3/uL (2.0-8.3); Platelet Count 168 X10*3/uL (160-400); Red Blood Count 4.54 X10*6/uL (4.60-5.80); Red Cell Distribution Width 13.6 % (11.0-16.0); White Blood Count 10.6 X10*3/uL (4.8-10.8)
== END 2023-10-13 12:09 | disposition home or self-care (01) ==
LOC: HO.LABR 12:08
PROVIDERS: PCP Internal Medicine; Visit Provider Clinical Nurse Specialist Psychiatric/Mental Health, Adult
DX: Z79.899 Other long term (current) drug therapy (principal)
CPT/HCPCS: 36415; 85025

== ENCOUNTER 2023-10-26 14:32 | Outpatient (AMB) | payer MEDICARE, MEDICAID, SELFPAY ==
[2023-10-26 14:33] VITALS: BP 134/72; PULSE 62; O2SAT 97; BMI 31.3
--- NOTE | 2023-10-26 14:33 | MHC.PC.OV ---
Vital Signs 10/26/23 14:33 Height 5 ft 10 in Weight 218 lb 0.2 oz BMI 31.3 BP 134/72 Blood Pressure Location Lt brachial Position Sitting Pulse 62 Pulse Source Pulse Oximeter Pulse Oximetry (%) 97 Oxygen Delivery Method Room Air Intake Visit Reasons: 3 Month F/U Plastics Patternmaker Required: No Allergies No Known Allergies [NKA] Allergy (Unknown, Verified 11/07/23 12:15) NONE Medication List - Last Reconciled 11/07/23 by Jonn Smith MD amitriptyline 10 mg PO DAILY PRN aripiprazole (Abilify) 5 mg PO DAILY clozapine 300 mg (3 x 100 mg) PO BEDTIME docusate sodium 200 mg (2 x 100 mg) PO BID lithium carbonate 300 mg PO BID lorazepam 1 mg PO TID metformin ER 500 mg PO DAILY omeprazole 20 mg PO BID@0630,1630 30 days polyethylene glycol 3350 (Miralax) 17 grams PO DAILY sennosides (Senna Lax) 17.2 mg (2 x 8.6 mg) PO BEDTIME sertraline 100 mg PO BID tamsulosin 0.4 mg PO QPM Tobacco use date assessed: 07/20/23 Dental Screening Dental Screen Date: 04/13/23 HPI 3 Month F/U HPI Details 58-year-old male presents to the office to discuss his chronic medical conditions. Patient comes alone. He has history of schizoaffective disorder. His mental health is stable currently. He is able to function and do activities of daily living. He does not drive. Compliant with his medications he reports he is at baseline state of health. [facility] Medical History Mild sleep apnea Nocturnal hypoxia Routine medical exam Joint inflammation of right hand and wrist Status post fall Adult general medical exam Screening for colon cancer Screening for prostate cancer Cough Schizophrenia, catatonic BPH (benign prostatic hyperplasia) Essential (primary) hypertension Diabetes mellitus Surgical History History of colonoscopy History of tooth extraction History of root canal procedure Family History Mother Cancer Father Kidney agenesis Social History Household Members: None Housing: Apartment Do you presently have visiting nurse or other home services: Yes Alcohol intake: former Comment: 1:1 Patient Tobacco Use Status: Never used Tobacco e-Cigarette/Vaping Use: Never Used Second Hand Smoke Exposure: No service: No Current occupational status: employed Sexual orientation: Straight/Heterosexual Cognitive needs: No Hearing needs: No Vision needs: No Questionnaire Thrive Questionnaire Date Thrive assessed: 05/01/23 AUDIT C Alcohol Use Questionnaire (AUDIT-C) 1. How often do you have a drink containing alcohol?: Never Total Score: 0 JONAH-7 AMB Questionnaire JONAH-7 Date JONAH - 7 assessed: 04/13/23 Source: Developed by Drs. Jacob Bates, Farrah Scott, Jose Martin Powell and colleagues, with an educational brigid from [employer]. Physical exam (Primary Care) Vital Signs: Last Vital Signs Pulse 62 10/26/23 14:33 BP 134/72 10/26/23 14:33 Pulse Ox 97 10/26/23 14:33 Oxygen Delivery Method Room Air 10/26/23 14:33 Care Plan Goal for BP management: Blood pressure is stable. BMI result Body Mass Index 31.3 Tobacco/Smoking Status: Tobacco use Status Tobacco use date assessed 07/20/23 10/26/23 14:38 Patient Tobacco Use Status Never used Tobacco 10/26/23 14:38 e-Cigarette/Vaping Use Never Used 10/26/23 14:38 Thrive Assessment: Date of Thrive Assessment Date Thrive assessed 05/01/23 10/26/23 14:38 Const General: cooperative and healthy appearing Nutritional Appearance: well nourished Orientation/consciousness: patient oriented x3 Limitations: no limitations HENMT Head: Yes normal to inspection Eyes General: appearance normal, both eyes and all related structures Neck Neck: Yes normal visual inspection Chest Chest palpation & inspection: normal palpation of entire chest wall Resp Effort & Inspection: normal respiratory effort Neuro General: patient oriented x3 Results AMB Hemoglobin A1c AMB Hemoglobin A1c 5.1 % Last Edit by CORRY Ware on 10/26/23 14:41 Results Reviewed Results Reviewed: Laboratory Last Values Hgb A1c (Clinic) 5.1 % (4.0-6.0) 10/26/23 14:24 Assessment and Plan Assessment & Plan (1) Diabetes mellitus: Code(s): E11.9 - Type 2 diabetes mellitus without complications Qualifiers: Diabetes mellitus type: type 2 Diabetes mellitus fdc insulin use: without fdc use Diabetes mellitus complication status: with hyperglycemia Qualified Code(s): E11.65 - Type 2 diabetes mellitus with hyperglycemia Plan: A1c is 5.1. Continue medications at same dosage. (2) Essential (primary) hypertension: Code(s): I10 - Essential (primary) hypertension Plan: Blood pressure is well controlled. Continue medications at same dosage. Orders: Orders AMB Hemoglobin A1c 10/26/23 E11.65 - Type 2 diabetes mellitus with hyperglycemia Coding Level of Care Code Est Pt Level 4 (70595) Complex EM visit Add On G2211 Diagnoses Type 2 diabetes mellitus with hyperglycemia, without long-term current use of insulin E11.65 Diabetes mellitus type: type 2 Diabetes mellitus fdc insulin use: without intermediate teacher use Diabetes mellitus complication status: with hyperglycemia Essential (primary) hypertension I10
== END 2023-10-26 14:57 | disposition home or self-care (01) ==
LOC: HO.HMGH 14:32
PROVIDERS: PCP Internal Medicine; Visit Provider Internal Medicine
DX: E11.65 Type 2 diabetes mellitus with hyperglycemia (principal)
CPT/HCPCS: 83036; 99214; G2211

== ENCOUNTER 2023-11-08 13:50 | Outpatient (REF) | payer MEDICARE, MEDICAID, SELFPAY ==
[2023-11-08 14:07] LABS: MANUAL DIFF FLAG NO
[2023-11-08 15:44] LABS: Basophils Percent Auto 0.2 % (0-2); Hematocrit 39.1 % (42.0-52.0); Hemoglobin 12.1 g/dl (14.0-18.0); Imm Gran Abs Auto 0.06 X10*3/uL (0.00-0.03); Imm Gran Pct Auto 0.9 % (0.0-0.4); Lymphocytes Absolute Auto 1.3 X10*3/uL (1.2-4.9); Lymphocytes Percent Auto 19.2 % (20-40); Mean Corpuscular HGB Conc 30.9 g/dl (31.0-36.0); Mean Corpuscular Hemoglobin 27.9 pg (27.0-33.0); Mean Corpuscular Volume 90.1 fL (80.0-98.0); Mean Platelet Volume 11.7 fL (9.4-12.4); Monocytes Absolute Auto 0.5 X10*3/uL (0.1-1.2); Monocytes Percent Auto 6.9 % (2-11); Neutrophils Absolute Auto 4.8 x10*3/uL (2.0-8.3); Neutrophils Percent Auto 72.8 % (45-73); Platelet Count 165 X10*3/uL (160-400); Red Blood Count 4.34 X10*6/uL (4.60-5.80); Red Cell Distribution Width 13.5 % (11.0-16.0); White Blood Count 6.6 X10*3/uL (4.8-10.8)
== END 2023-11-08 13:51 | disposition home or self-care (01) ==
LOC: HO.LAB 13:50
PROVIDERS: PCP Internal Medicine; Visit Provider Clinical Nurse Specialist Psychiatric/Mental Health, Adult
DX: Z79.899 Other long term (current) drug therapy (principal)
CPT/HCPCS: 36415; 85025

== ENCOUNTER 2023-12-19 10:48 | Outpatient (REF) | payer MEDICARE, MEDICAID, SELFPAY ==
[2023-12-19 11:03] LABS: MANUAL DIFF FLAG NO
[2023-12-19 11:46] LABS: Basophils Percent Auto 0.1 % (0-2); Hematocrit 38.7 % (42.0-52.0); Imm Gran Abs Auto 0.09 X10*3/uL (0.00-0.03); Imm Gran Pct Auto 0.8 % (0.0-0.4); Lymphocytes Absolute Auto 1.2 X10*3/uL (1.2-4.9); Lymphocytes Percent Auto 9.7 % (20-40); Mean Corpuscular Volume 90.4 fL (80.0-98.0); Mean Platelet Volume 10.8 fL (9.4-12.4); Monocytes Absolute Auto 0.7 X10*3/uL (0.1-1.2); Neutrophils Absolute Auto 9.9 x10*3/uL (2.0-8.3); Neutrophils Percent Auto 83.4 % (45-73); Platelet Count 168 X10*3/uL (160-400); Red Blood Count 4.28 X10*6/uL (4.60-5.80); Red Cell Distribution Width 13.7 % (11.0-16.0); White Blood Count 11.9 X10*3/uL (4.8-10.8)
== END 2023-12-19 10:49 | disposition home or self-care (01) ==
LOC: HO.LABR 10:48
PROVIDERS: PCP Internal Medicine; Visit Provider Clinical Nurse Specialist Psychiatric/Mental Health, Adult
DX: Z79.899 Other long term (current) drug therapy (principal)
CPT/HCPCS: 36415; 85025

== ENCOUNTER 2023-12-27 14:36 | Outpatient (AMB) | payer MEDICARE, MEDICAID, SELFPAY ==
--- NOTE | 2023-12-27 14:54 | A.OFFVIS_ITS ---
Intake Vital Signs 12/27/23 14:57 Height 5 ft 10 in Weight 220 lb 8 oz BMI 31.6 BP 110/72 Blood Pressure Location Lt brachial Position Sitting Pulse 73 Pulse Source Pulse Oximeter Pulse Oximetry (%) 96 Oxygen Delivery Method Room Air Intake Visit Reasons: SALENAV G0439 Intake Note: Patient is here for an Annual Wellness Visit. 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 [facility] Medical History Mild sleep apnea Nocturnal hypoxia Routine medical exam Joint inflammation of right hand and wrist Status post fall Adult general medical exam Screening for colon cancer Screening for prostate cancer Cough Schizophrenia, catatonic BPH (benign prostatic hyperplasia) Essential (primary) hypertension Diabetes mellitus Surgical History History of colonoscopy (~06/15/21) History of tooth extraction History of root canal procedure Family History Mother Cancer Father Kidney agenesis Social History Household Members: None Housing: Apartment Do you presently have visiting nurse or other home services: Yes Alcohol intake: former Comment: 1:1 Patient Tobacco Use Status: Never used Tobacco e-Cigarette/Vaping Use: Never Used Second Hand Smoke Exposure: No service: No Current occupational status: employed Sexual orientation: Straight/Heterosexual Cognitive needs: No Hearing needs: No Vision needs: No Questionnaire Medicare Wellness Checkup What [age] your [age]?: 65-69 (58) What gender do you identify with?: male During the past 4 weeks, how much have you been bothered by emotional problems such as feeling anxious, depressed, irritable, sad or downhearted, and blue?: slightly During the past 4 weeks, has your physical & emotional health limited your social activities with family, friends, neighbors, or groups?: slightly During the past 4 weeks, how much bodily pain have you generally had?: very mild pain During the past 4 weeks, was someone available to help you if you needed & wanted help?: yes, some During the past 4 weeks, what was the hardest physical activity you could do for at least 2 minutes?: moderate Can you get to places out of walking distance without help? (For eg., can you travel alone on buses, taxis or drive your car?): Yes Can you go shopping for groceries or clothes without someone's help?: Yes Can you prepare your own meals?: Yes Can you do your housework without help?: Yes Because of any health problems, do you need the help of another person with your personal care needs such as eating, bathing, dressing or getting around the house?: No Can you handle your own money without help?: Yes During the past 4 weeks, how would you rate your health in general?: very good During the past 4 weeks how have things been going for you?: pretty well Are you having difficulties driving your car?: no Do you always fasten your seat belt when you are in a car?: yes, usually During past 4 weeks, have you been bothered by the following: never: Falling or dizzy when standing up and Problems using the telephone?, sometimes: Trouble eating well?, Teeth or denture problems? and Tiredness or fatigue? and often: Sexual problems? Have you fallen 2 or more times in the past year?: No Are you afraid of falling?: Yes Are you a smoker?: no During the past 4 weeks, how many drinks of wine, beer, or other alcoholic beverages did you have?: no alcohol at all Do you exercise for about 20 minutes 3 or more times a week?: yes, all the time Have you been given information to help with the following?: yes: Hazards in your house that might hurt you? and yes: Keeping track of your medications? How often do you have trouble taking medicines the way you have been told to take them?: I always take medicine as prescribed How confident are you that you can control & manage most of your health problems?: somewhat confident What is your race?: White Mini Mental State Exam (MMSE) Orientation What is the (year) (season) (date) (day) (month)?: year and season Score Score: 2 Activity of Daily Living Bathing - sponge bath, tub bath or shower: receives no assistance (gets in/out by self, if usual bathing means Dressing - getting clothes from closets & drawers, including inner/outer garments & fasteners.: gets clothes & gets completely dressed without help Toileting - going to the 'toilet room' for urine/bowel elimination & cleaning self/arranging clothes: goes to toilet room, cleans self, arranges clothes without help Transfer: moves in & out of bed and chair without help (may use support object) Feeding: feeds self without help Total Score: 0 Information obtained from: patient Using telephone: independent Traveling: independent Shopping: independent Preparing meals: independent Housework: independent Taking medicine: independent Managing money: independent PHQ-9 Over the last 2 weeks, how often have you been bothered by any of the following problems? 1. Little interest or pleasure in doing things: several days 2. Feeling down, depressed, or hopeless: more than half the days 3. Trouble falling or staying asleep, or sleeping too much: not at all 4. Feeling tired or having little energy: more than half the days 5. Poor appetite or overeating: more than half the days 6. Feeling bad about yourself - or that you are a failure or have let yourself or your family down: not at all 7. Trouble concentrating on things, such as reading the newspaper or watching t elevision: several days 8. Moving or speaking so slowly that other people could have noticed. Or the opposite - being so fidgety or restless that you have been moving around a lot more than usual: several days 9. Thoughts that you would be better off or of hurting yourself in some way: not at all Total score: 9 Source: Developed by Drs. Jacob Bates, Farrah Scott, Jose Martin Powell and colleagues, with an educational brigid from [employer]. Thrive Questionnaire Date Thrive assessed: 05/01/23 Are you currently unemployed and looking for a job?: No JONAH-7 AMB Questionnaire JONAH-7 Date JONAH - 7 assessed: 04/13/23 Source: Developed by Drs. Jacob Bates, Farrah Scott, Jose Martin Powell and colleagues, with an educational brigid from [employer]. Physical Exam Vital Signs: Last Vital Signs Pulse 73 12/27/23 14:57 BP 110/72 12/27/23 14:57 Pulse Ox 96 12/27/23 14:57 Oxygen Delivery Method Room Air 12/27/23 14:57 BMI result Body Mass Index 31.6 Balance: Negative Romberg: Negative Tandem Walk: Able to Walk and Turn: Able to Rise from sit to stand: Able to Hearing Whisper test: Pass Patient sees a psychiatrist at [facility], resizer operator at [facility], slubber operator at [place]. Plan for his screening procedures were provided to the patient. Const General: cooperative and healthy appearing Nutritional Appearance: well nourished Orientation/consciousness: patient oriented x3 Limitations: no limitations HEENT Head: Yes normal to inspection Eyes General: appearance normal, both eyes and all related structures Neck Neck: Yes normal visual inspection Chest Chest palpation & inspection: normal palpation of entire chest wall Resp Effort & Inspection: normal respiratory effort Neuro General: patient oriented x3 Assessment & Plan Assessment & Plan (1) Sleep apnea: Comment: Severe degree of sleep apnea with hypoxemia. Code(s): G47.30 - Sleep apnea, unspecified (2) Schizoaffective disorder, depressive type: Code(s): F25.1 - Schizoaffective disorder, depressive type Plan: Condition is stable (3) Benign prostate hyperplasia: Code(s): N40.0 - Benign prostatic hyperplasia without lower urinary tract symptoms Qualifiers: Lower urinary tract symptom presence: unspecified whether lower urinary tract symptoms present Qualified Code(s): N40.0 - Benign prostatic hyperplasia without lower urinary tract symptoms Plan: Condition is stable. (4) Essential hypertension: Code(s): I10 - Essential (primary) hypertension Plan: Blood pressure is stable. (5) Essential (primary) hypertension: Code(s): I10 - Essential (primary) hypertension Plan: Condition is stable. 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 (7) Annual physical exam: Code(s): Z00.00 - Encounter for general adult medical examination without abnormal findings Plan: Condition reviewed Plan Stable Quality Reporting (2019) Depression/Bipolar (159/160/161/177) PHQ-9: Total score: 9 Coding Level of Care Code Medicare Subsequent (G0439) Diagnoses Sleep apnea G47.30 Schizoaffective disorder, depressive type F25.1 Benign prostatic hyperplasia, unspecified whether lower urinary tract symptoms present N40.0 Lower urinary tract symptom presence: unspecified whether lower urinary tract symptoms present Essential hypertension I10 Essential (primary) hypertension I10 Type 2 diabetes mellitus with hyperglycemia, without long-term current use of insulin E11.65 Diabetes mellitus type: type 2 Diabetes mellitus nursing home insulin use: without exterminator helper termite use Diabetes mellitus complication status: with hyperglycemia Annual physical exam Z00.00
[2023-12-27 14:57] VITALS: BP 110/72; PULSE 73; O2SAT 96; BMI 31.6
== END 2023-12-27 15:51 | disposition home or self-care (01) ==
PROVIDERS: PCP Internal Medicine; Visit Provider Internal Medicine
DX: Z00.00 Encounter for general adult medical examination without abnormal findings (principal); F25.1 Schizoaffective disorder, depressive type; E11.65 Type 2 diabetes mellitus with hyperglycemia; G47.30 Sleep apnea, unspecified; N40.0 Benign prostatic hyperplasia without lower urinary tract symptoms; I10 Essential (primary) hypertension

== ENCOUNTER → 2023-12-27 14:36 | Outpatient (BNVA) | payer MEDICARE, MEDICAID, SELFPAY | PROVIDERS: PCP Internal Medicine; Visit Provider Internal Medicine ==

== ENCOUNTER 2024-01-05 11:19 | Inpatient (IN) | payer MEDICARE, MEDICAID, SELFPAY ==
--- NOTE | ~2024-01-05 | CT_ITS ---
EXAMINATION: CT CERVICAL SPINE WITHOUT CONTRAST CLINICAL INFORMATION: Mechanical fall COMPARISON: None available. TECHNIQUE: Contiguous axial images through the cervical spine using 2 mm collimation with bone and soft tissue algorithm. Sagittal and coronal reformatted images acquired. This CT examination was performed using dose optimization techniques as appropriate, variously including the following: *Automated exposure control *Adjustment of mA and/or kV according to patient size (this includes techniques or standardized protocols for targeted exams where dose is matched to indication/reason for exam; i.e. extremities or head) *Use of iterative reconstruction technique DLP: 430 mGy-cm FINDINGS: Craniocervical junction is intact. C1 is intact. C2 is intact. C3 is intact. C4 is intact. C5 is intact. C6 is intact. C3 C7 is intact. Multilevel syndesmophyte formation and marginal osteophyte formation with preservation of the intervertebral disc height from C2 C7. Cortical irregularity at the syndesmophyte formation at C3. No gross malalignment. No prevertebral compartment hematoma. Calcified lesions of the nuchal ligament at C4. Tympanic cavities and mastoid air cells are aerated. CT/CT cervical spine wo IV con IMPRESSION: Multilevel spondylosis likely representing DISH without acute fracture or trauma-related listhesis. A acute to subacute fracture of the syndesmophyte formation at C3 cannot be entire excluded. If patient's symptoms persist recommend non-IV contrast MRI cervical spine. Fleischner guidelines were followed. Electronically signed by: Mayank Irwin MD 02/13/2024 03:34 PM [facility]
--- NOTE | ~2024-01-05 | MR_ITS ---
EXAMINATION: MR CERVICAL SPINE WITHOUT CONTRAST CLINICAL INFORMATION: Syndesmophyte formation at C3 COMPARISON: None available. TECHNIQUE: MRI of the cervical spine was obtained. This examination was ultimately prematurely terminated. Only localizer sequences were obtained. This is a nondiagnostic MRI of the cervical spine. Recommend repeat examination. Electronically signed by: Villa Tello MD 02/13/2024 06:39 PM [facility]
--- NOTE | ~2024-01-05 | MR_ITS ---
EXAMINATION: MR CERVICAL SPINE WITHOUT CONTRAST CLINICAL INFORMATION: CT suggestive of C3 fracture COMPARISON: None available. TECHNIQUE: MRI of the cervical spine was obtained using routine sequences without contrast. FINDINGS: Motion artifact is present. The imaged posterior fossa is unremarkable. Straightening of the normal cervical lordosis. No listhesis. No acute bone marrow abnormality. The vertebral body heights are preserved. There is no definitive evidence of fracture involving the C3 syndesmophyte there is most slight. Multilevel disc desiccation without significant disc height loss. The visualized spinal cord is normal in caliber. No abnormal cord signal. C2-C3: Bilateral facet arthrosis. No significant spinal canal or neural foraminal narrowing. C3-4: Disc osteophyte complex, bilateral uncovertebral hypertrophy, and bilateral facet arthrosis. Mild left greater than right neural foraminal narrowing. No significant spinal canal stenosis is C4-5: Bilateral facet arthrosis. No significant spinal canal or neural foraminal narrowing. C5-6: Disc osteophyte complex and left greater than right uncovertebral hypertrophy. Mild left neural foraminal narrowing. No significant spinal canal stenosis. C6-7: Disc osteophyte complex, bilateral uncovertebral hypertrophy, and bilateral facet arthrosis. No significant spinal canal or neural foraminal narrowing. There is a small perineural cyst on the right. C7-T1: Bilateral facet arthrosis. Mild left neural foraminal narrowing. No significant spinal canal stenosis. The paravertebral soft tissues are unremarkable. MR/MR cervical spine wo con IMPRESSION: Within the limitations of the study, 1. No definitive evidence of fracture involving the C3 syndesmophyte. 2. Multilevel cervical spondylosis without significant spinal canal stenosis or cord compression. Mild multilevel neural foraminal narrowing as described above. Electronically signed by: Villa Tello MD 02/14/2024 03:51 PM [facility]
--- NOTE | ~2024-01-05 | CT_ITS ---
EXAMINATION: CT HEAD WITHOUT CONTRAST CLINICAL INFORMATION: mechanical fall COMPARISON: CT dated March 05, 2023 TECHNIQUE: Contiguous axial imaging was performed from the skull base to vertex without intravenous administration of contrast. This CT examination was performed using dose optimization techniques as appropriate, variously including the following: *Automated exposure control *Adjustment of mA and/or kV according to patient size (this includes techniques or standardized protocols for targeted exams where dose is matched to indication/reason for exam; i.e. extremities or head) *Use of iterative reconstruction technique DLP: 108 mGy-cm FINDINGS: Bony calvarium is intact. Skull base is intact and No acute intracranial hemorrhage, mass effect, midline shift, hydrocephalus or herniation. Joe-white matter differentiation is normal. Posterior cranial fossa contents demonstrated no acute intracranial hemorrhage or mass effect. 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 Mucosal thickening and secretions in the left sphenoid sinus. Tympanic cavities and mastoid air cells are aerated. Pneumatized petrous apices, congenital variants. No gross hematoma within the intraconal or the extraconal compartments of the orbits... CT/CT head/brain wo IV con IMPRESSION: No acute fracture, bony calvarium or acute intracranial hemorrhage. Stable brain. Electronically signed by: Mayank Irwin MD 02/13/2024 03:39 PM [facility]
--- NOTE | ~2024-01-05 | CT_ITS ---
EXAMINATION: CT HIP WITHOUT CONTRAST, RIGHT CLINICAL INFORMATION: Mechanical fall COMPARISON: None available. TECHNIQUE: Multidetector volumetric imaging was obtained through the right hip without contrast material. Multiplanar reformatted images were submitted in coronal and sagittal planes. This CT examination was performed using dose optimization techniques as appropriate, variously including the following: *Automated exposure control *Adjustment of mA and/or kV according to patient size (this includes techniques or standardized protocols for targeted exams where dose is matched to indication/reason for exam; i.e. extremities or head) *Use of iterative reconstruction technique DLP: 425 mGy-cm FINDINGS: The anterior and posterior columns of the right acetabulum are intact. The right femoral head is well-seated in the right acetabulum. The right femoral head neck intertrochanteric region and proximal diaphysis are intact. The right superior and inferior pubic rami are intact. Exostosis in the right ischium and right iliac crest. Marginal osteophyte formation of right sacroiliac joint. No gross soft tissue hematoma. Vascular calcifications. Abundant stool in the large intestine. The sacrococcyx appears intact. CT/CT hip RT wo IV con IMPRESSION: No acute fracture or dislocation right coxofemoral joints/right hip. Electronically signed by: Mayank Irwin MD 02/13/2024 03:48 PM [facility]
--- NOTE | ~2024-01-05 | XR_ITS ---
EXAMINATION: XR CHEST CLINICAL INFORMATION: Rule out pneumonia COMPARISON: Chest x-ray on 03/05/2023 TECHNIQUE: 2 views of the chest were obtained. FINDINGS: The cardiac silhouette is normal. There is mild diffuse bronchial wall thickening. There are no areas of consolidation. There are no pleural effusions or pneumothoraces. The bones and soft tissues are unremarkable for the patient's age. XR/XR chest 2V IMPRESSION: Bronchial wall thickening may be infectious and/or inflammatory in etiology. Electronically signed by: Marianna Torres MD 01/07/2024 03:31 PM EDT
--- NOTE | ~2024-01-05 | CT_ITS ---
EXAMINATION: CT HIP WITHOUT CONTRAST, LEFT CLINICAL INFORMATION: Mechanical fall. COMPARISON: None available. TECHNIQUE: Multidetector volumetric imaging was obtained through the left hip without contrast material. Multiplanar reformatted images were submitted in coronal and sagittal planes. This CT examination was performed using dose optimization techniques as appropriate, variously including the following: *Automated exposure control *Adjustment of mA and/or kV according to patient size (this includes techniques or standardized protocols for targeted exams where dose is matched to indication/reason for exam; i.e. extremities or head) *Use of iterative reconstruction technique DLP: 425 mGy-cm FINDINGS: The left acetabulum anterior and posterior column are intact. The left superior and inferior pubic rami are intact. Left femoral head neck intertrochanteric region and proximal diaphysis are intact. The left femoral head is well-seated in the left acetabulum. Probable bony island in the intertrochanteric region. Exostosis in the left iliac crest likely degenerative similar findings in the left ischium. 6 mm sclerotic lesion posterior left iliac bone. Degenerative changes in the left sacroiliac joint. No gross soft tissue hematoma. CT/CT hip LT wo IV con IMPRESSION: No acute fracture or dislocation, left coxofemoral joint/hip. Electronically signed by: Mayank Irwin MD 02/13/2024 03:44 PM EST
--- NOTE | ~2024-01-05 | XR_ITS ---
EXAMINATION: XR CHEST CLINICAL INFORMATION: low 02 COMPARISON: Chest x-ray January 07, 2024 TECHNIQUE: Frontal portable view of the chest was obtained. 7:30 AM FINDINGS: No significant abnormality is noted involving the heart, lungs, mediastinum, bony thorax or soft tissues. XR/XR chest 1V IMPRESSION: Unremarkable examination. Electronically signed by: Josse Gregorio MD 02/21/2024 05:53 PM EST
[2024-01-05 11:27] VITALS: BP 123/51; BP 134/80; PULSE 80; PULSE 86; RESP 18; TEMP 36.7; O2SAT 97; O2SAT 98; BMI 30.5
--- NOTE | 2024-01-05 11:30 | ED.GENADULT ---
HPI - General Adult General Chief complaint: Psychiatric Symptoms Stated complaint: Hx schizophrenia, deprression, catatonic Time Seen by Provider: 01/05/24 11:30 Source: patient and EMS Mode of arrival: EMS Limitations: other (patient is catatonic) History of Present Illness ED Provider: Florecita Ellison PA-C HPI narrative: Patient is a 58 year old assigned male at with a history of schizoaffective disorder, HTN, and DM presenting to the emergency department today in a catatonic state. Patient is well connected in the community with psychiatric resources. Was evaluated by [facility] who recommended he come to the ER because of his catatonic state. Patient not answering questions at this time. Related Data Home Medications ?Medication ?Instructions ?Recorded ?Confirmed aripiprazole 5 mg tablet 5 mg PO BEDTIME 01/05/24 01/05/24 lithium carbonate 300 mg capsule 300 mg PO BID 01/05/24 01/05/24 omeprazole 20 mg capsule,delayed 20 mg PO DAILY@0630 01/05/24 01/05/24 release polyethylene glycol 3350 17 17 g PO DAILY 01/05/24 01/05/24 gram/dose oral powder (Miralax) sennosides 8.6 mg tablet (senna) 17.2 mg PO BEDTIME 01/05/24 01/05/24 tamsulosin 0.4 mg capsule 0.4 mg PO BEDTIME 01/05/24 01/05/24 Previous Rx's ?Medication ?Instructions ?Recorded clozapine 100 mg tablet 300 mg (3 x 100 mg) PO BEDTIME #21 05/02/23 tabs lorazepam 1 mg tablet 1 mg PO TID #90 tabs 05/02/23 sertraline 100 mg tablet 100 mg PO BID #60 tabs 05/02/23 docusate sodium 100 mg capsule 200 mg (2 x 100 mg) PO BID #120 12/12/23 caps metformin 500 mg tablet,extended 500 mg PO DAILY #30 tabs 12/14/23 release 24 hr blood sugar diagnostic (OneTouch #100 ea 01/04/24 Ultra Test strips) blood-glucose meter (OneTouch #1 ea 01/04/24 Ultra2 Meter) lancets 30 gauge (OneTouch Delica #200 ea 01/04/24 Plus Lancet) Allergies Allergy/AdvReac Type Severity Reaction Status Date / Time No Known Allergies [NKA] Allergy Unknown NONE Verified 01/05/24 11:31 Review of Systems Review of Systems: Yes Other (patient not answering ROS secondary to catatonic state) Psychiatric: Comments: catatonia PMFSH Past Medical History Attestation statement: The following information was validated with the patient. Source: old records reviewed and nursing notes reviewed Medical History Mild sleep apnea Nocturnal hypoxia Routine medical exam Joint inflammation of right hand and wrist Status post fall Adult general medical exam Screening for colon cancer Screening for prostate cancer Cough Schizophrenia, catatonic BPH (benign prostatic hyperplasia) Essential (primary) hypertension Diabetes mellitus Surgical History History of colonoscopy (~06/15/21) History of tooth extraction History of root canal procedure Family History Family History Mother Cancer Father Kidney agenesis Social History Social History Household Members: None Housing: Apartment Do you presently have visiting nurse or other home services: Yes Unable to assess alcohol history related to: Unable to respond Alcohol intake: former Comment: 1:1 Patient Tobacco Use Status: Never used Tobacco Smoked in Last 30 Days: No e-Cigarette/Vaping Use: Never Used Second Hand Smoke Exposure: No Use of substances other than those prescribed or required for medical reasons: Unable to respond Advance Directives: No Advance Directives Information Provided: No Do you have a plan to hurt others: No Plan service: No Current occupational status: employed Sexual orientation: Straight/Heterosexual Cognitive needs: No Hearing needs: No Vision needs: No Physical Exam ED Vital Signs: Vital Signs - 24 hr 01/05/24 11:27 01/05/24 16:56 Temperature 98.0 F 98.4 F Pulse Rate 80 89 Respiratory Rate 18 14 Blood Pressure 134/80 136/74 Pulse Oximetry 97 94 Oxygen Delivery Method Room Air Room Air BMI result Body Mass Index 30.5 Const General: cooperative, no acute distress, alert and awake Nutritional Appearance: well nourished Limitations: other limitations (catatonic) HENMT Head: Yes normal to inspection and Yes atraumatic Ears: hearing grossly normal bilaterally and external ears normal General nose exam: Normal external nose present, no nasal discharge noted and no epistaxis Face and sinus: Yes normal facial exam, No abrasion and No laceration Mouth: Normal oral and palatal mucosa present, no drooling and no muffled voice Eyes General: appearance normal, both eyes and all related structures Periorbital: periorbital findings normal Eyelids: Yes eyelids normal Conjunctivae: conjunctivae normal Pupils: Equal, round and reactive pupils present EOM: EOMs intact bilaterally Neck Neck: Yes normal visual inspection, Yes full ROM and Yes no lymphadenopathy Chest Chest palpation & inspection: normal inspection of the chest Resp Effort & Inspection: normal respiratory effort and able to speak in complete sentences GI Inspection: Yes normal to inspection Neuro General: moves all extremities Cranial nerves: Yes Equal, round and reactive pupils present Cognition (Neuro): normal cognition Extrem General: Yes normal to inspection, Yes full ROM and Yes capillary refill normal Psych Appearance: grossly normal Affect: Other affect and mood findings present (catatonic) Attitude: Refuses to answer (attititude/behavior) Course Reevaluation(s) Reevaluation #1: Physician observation continued. Uneventful night. Vital signs stable. No complaints from nursing overnight. Med reconciliation reviewed and done. Bed search is underway, Will continue to monitor. Time: 08:15 Medications Administered Generic Name Dose Route Start Last Admin Trade Name Michelle PRN Reason Stop Dose Admin Aripiprazole 5 mg 01/05/24 21:00 01/05/24 22:46 Aripiprazole 5 Mg Tablet PO 5 mg BEDTIME KRISTIN Administration Clozapine 300 mg 01/05/24 21:00 01/05/24 22:57 Clozapine 100 Mg Tablet PO 300 mg BEDTIME KRISTIN Administration Docusate Sodium 200 mg 01/05/24 21:00 01/05/24 22:57 Docusate Sodium 100 Mg Capsule PO 200 mg BID KRISTIN Administration Provencal Carbonate 300 mg 01/05/24 21:00 01/05/24 22:45 Provencal Carbonate 300 Mg Capsule PO 300 mg BID KRISTIN Administration Lorazepam 1 mg 01/05/24 15:00 01/05/24 22:47 Lorazepam 1 Mg Tablet PO Not Given TID KRISTIN Metformin HCl 500 mg 01/05/24 16:30 01/05/24 19:22 Metformin Hcl Er 500 Mg Tab.Er.24h PO 500 mg DAILY KRISTIN Administration Omeprazole 20 mg 01/05/24 16:30 01/05/24 19:21 Omeprazole 20 Mg Capsule. PO 20 mg DAILY@0630 KRISTIN Administration Sertraline HCl 100 mg 01/05/24 16:30 01/05/24 22:46 Sertraline Hcl 100 Mg Tablet PO 100 mg BID KRISTIN Administration Tamsulosin HCl 0.4 mg 01/05/24 21:00 01/05/24 22:57 Tamsulosin Hcl 0.4 Mg Capsule PO 0.4 mg BEDTIME KRISTIN Administration Discontinued Medications Generic Name Dose Route Start Last Admin Trade Name Michelle PRN Reason Stop Dose Admin Lorazepam 2 mg 01/05/24 11:34 01/05/24 11:53 Lorazepam 1 Mg Tablet PO 01/05/24 11:35 2 mg ONCE ONE Administration Medical Decision Making Medical Decision Making MDM Narrative: Patient is a 58 year old assigned male at with a history of schizoaffective disorder, HTN, and DM presenting to the emergency department today in a catatonic state. Patient's physical exam showed an individual in a catatonic state. Patient's blood work was unremarkable. Patient's EKG was unremarkable. Patient was evaluated by CARE team who recommended psychiatry referral. Psychiatry met with the patient who recommended inpatient level of psychiatric care. I explained my physical exam findings as well as all test results to the patient. Patient to remain in the department under physician observation pending either psychiatric admission or transfer to an appropriate psychiatric facility. Patient was given PO Ativan which relieved some of the patient's symptoms. Patient ate his entire lunch tray. Differential Diagnosis Differential Diagnoses: The differential diagnosis associated with the presentation includes Catatonia Admission/Observation Consideration of admission/observation: Escalation of care including admission/observation considered Patient to be admitted for continued psychiatric care or transferred to an appropriate psychiatric facility. Consult Healthcare Provider Management of the patient was discussed with: Behavioral Health Provider (spoke to the CARE team and psychiatry as noted in the MDM Rationale portion of this note. ) Lab Data [facility] Lab Attestation statement: I reviewed the patient's lab results. My interpretation of these results are in the MDM Rationale portion of this note. 01/05/24 11:49 01/05/24 11:49 Labs: Lab Results 01/05/24 01/05/24 01/05/24 Range/Units 11:49 15:51 18:36 WBC 8.9 (4.8-10.8) X10*3/uL RBC 4.82 (4.60-5.80) X10*6/uL Hgb 13.9 L (14.0-18.0) g/dl Hct 42.6 (42.0-52.0) % MCV 88.4 (80.0-98.0) fL MCH 28.8 (27.0-33.0) pg MCHC 32.6 (31.0-36.0) g/dl RDW 13.2 (11.0-16.0) % Plt Count 169 (160-400) X10*3/uL MPV 11.1 (9.4-12.4) fL Immature Gran % (Auto) 0.6 H (0.0-0.4) % Neut % (Auto) 79.4 H (45-73) % Lymph % (Auto) 13.1 L (20-40) % [place] % (Auto) 6.8 (2-11) % Eos % (Auto) 0.0 (0-4) % Baso % (Auto) 0.1 (0-2) % Lymph # (Auto) 1.2 (1.2-4.9) X10*3/uL [place] # (Auto) 0.6 (0.1-1.2) X10*3/uL Eos # (Auto) 0.0 (0.0-0.4) X10*3/uL Baso # (Auto) 0.0 (0.0-0.2) X10*3/uL Abs Immat Gran (auto) 0.05 H (0.00-0.03) X10*3/uL Absolute Neuts (auto) 7.1 (2.0-8.3) x10*3/uL Absolute Nucleated RBC 0.000 (0.0-0.012) X10*3/uL Nucleated RBC % (auto) 0.0 (0.0-0.2) /100WBC Sodium 141 (135-145) mmol/L Potassium 4.6 (3.3-5.1) mmol/L Chloride 106 (96-108) mmol/L Carbon Dioxide 27 (22-29) mmol/L Anion Gap 13 (12-20) BUN 23 H (9-16) mg/dL Creatinine 1.42 H (0.5-1.4) mg/dL Estim Creat Clear Calc 64.4 Estimated GFR 51 POC Glucose 90 (60-115) mg/dL Random Glucose 82 (60-115) mg/dL Calcium 9.2 (8.4-10.2) mg/dL Total Bilirubin 0.6 (0.0-1.0) mg/dL AST 13 (5-37) U/L ALT 9 (0-40) U/L Alkaline Phosphatase 64 (39-117) U/L Total Protein 7.0 (6.5-8.0) g/dL Albumin 4.1 (3.5-5.0) g/dL Salicylates < 5.0 L (15-30) mg/dL Acetaminophen < 3 (<30) mcg/mL Provencal 1.19 (0.60-1.20) mmol/L Ethyl Alcohol < 10 mg/dL COVID-19 (SHAKA) Negative (Negative) COVID-19 Clin Com See Note Independent Interpretation I performed an independent interpretation of an: EKG Interpretation: Vent. Rate: 077 BPM Atrial Rate: 077 BPM P-R Int: 152 ms QRS Dur: 086 ms QT Int: 350 ms P-R-T Axes: 051 006 067 degrees QTc Int: 396 ms Normal sinus rhythm Nonspecific T wave abnormality Abnormal ECG When compared with ECG of 16-APR-2023 18:34, No significant change was found Electronically Signed By:ATIF ASHLEY MD Dictated By: Atif Ashley MD Signed By: Electronically signed by Atif Ashley MD 01/05/24 1644 Radiology Impression Discussion of test interpretation with radiology: I have reviewed the radiologist's reading. Independent Historian Clinical information obtained from an independent historian. History obtained from or confirmed by: EMS (EMS provided additional history and confirmed the history provided by the patient.) Critical Care Time Critical Care Time Critical Care Time: Yes Total Critical Care Time: 48 Attestation: I spent 48 minutes of Critical Care Time with this patient. This does not include time spent on separately reported billable procedures. Discharge Plan Discharge Clinical Impression: Catatonia Patient Disposition: Still a Patient Prescriptions: No Action docusate sodium 100 mg capsule 200 mg PO BID Qty: 120 3RF metformin 500 mg tablet extended release 24 hr 500 mg PO DAILY Qty: 30 1RF (DME) lancets [OneTouch Delica Plus Lancet] 30 gauge misc See Rx Instructions .Route Qty: 200 0RF Rx Instructions: As directed daily (DME) OneTouch Ultra Test Strip See Rx Instructions .Route Qty: 100 0RF Rx Instructions: As directed daily (DME) blood-glucose meter [OneTouch Ultra2 Meter] Misc See Rx Instructions .Route Qty: 1 0RF Rx Instructions: As directed clozapine 100 mg Tablet 300 mg PO BEDTIME Qty: 21 0RF sertraline 100 mg tablet 100 mg PO BID Qty: 60 0RF lorazepam 1 mg Tablet 1 mg PO TID Qty: 90 0RF lithium carbonate 300 mg capsule 300 mg PO BID omeprazole 20 mg capsule,delayed release(DR/EC) 20 mg PO DAILY@0630 tamsulosin 0.4 mg capsule 0.4 mg PO BEDTIME aripiprazole 5 mg tablet 5 mg PO BEDTIME sennosides [senna] 8.6 mg Tablet 17.2 mg PO BEDTIME polyethylene glycol 3350 [Miralax] 17 gram/dose Powder 17 g PO DAILY Interventions: [place]-Suicide Risk Severity Scale Last Done: 01/05/24 19:31 Print Language: Qatari
--- NOTE | 2024-01-05 11:34 | ECG_ITS ---
Test Reason : catatonic Blood Pressure : / mmHG Vent. Rate : 077 BPM Atrial Rate : 077 BPM P-R Int : 152 ms QRS Dur : 086 ms QT Int : 350 ms P-R-T Axes : 051 006 067 degrees QTc Int : 396 ms Normal sinus rhythm Nonspecific T wave abnormality Abnormal ECG When compared with ECG of 16-APR-2023 18:34, No significant change was found Referred By: Florecita Ellison Electronically Signed By:AUGUSTO RAYMUNDO MD
[2024-01-05] MEDS: LORazepam 1 MG TABLET 2 MG PO (11:53)
[2024-01-05 11:56] LABS: MANUAL DIFF FLAG NO
[2024-01-05 11:58] LABS: Basophils Percent Auto 0.1 % (0-2); Hematocrit 42.6 % (42.0-52.0); Hemoglobin 13.9 g/dl (14.0-18.0); Imm Gran Abs Auto 0.05 X10*3/uL (0.00-0.03); Imm Gran Pct Auto 0.6 % (0.0-0.4); Lymphocytes Absolute Auto 1.2 X10*3/uL (1.2-4.9); Lymphocytes Percent Auto 13.1 % (20-40); Mean Corpuscular HGB Conc 32.6 g/dl (31.0-36.0); Mean Corpuscular Hemoglobin 28.8 pg (27.0-33.0); Mean Corpuscular Volume 88.4 fL (80.0-98.0); Mean Platelet Volume 11.1 fL (9.4-12.4); Monocytes Absolute Auto 0.6 X10*3/uL (0.1-1.2); Monocytes Percent Auto 6.8 % (2-11); Neutrophils Absolute Auto 7.1 x10*3/uL (2.0-8.3); Neutrophils Percent Auto 79.4 % (45-73); Platelet Count 169 X10*3/uL (160-400); Red Blood Count 4.82 X10*6/uL (4.60-5.80); Red Cell Distribution Width 13.2 % (11.0-16.0); White Blood Count 8.9 X10*3/uL (4.8-10.8)
--- NOTE | 2024-01-05 12:15 | PC.NURSE ---
Pt GUANAKO from home for depression/catatonic state. Pt hx of schizophrenia/depression, visiting nurse from [facility] went to do visit on pt when he answered the door, and was not responsing verbally.. This RN spoke with Sandra from [facility]. Per Sandra, over the last week pt has been making SI statements/not taking care of himself. He has not been grocery shopping and has little to no food in the house, she states she's symptoms have been progressively worsening over the week. [place] [facility] [place] Upon arrival pt alert, unable to assess orientation d/t pt not responding verbally, able to follow commands. No increased wob/sob noted, lung sounds cta bilaterally, s1 and s2 heard, abdomen soft, non-tender on palpation. Pt resting in bed quietly, medicated per MAY with 2mg PO ativan. Call contreras within reach, all needs met at this time, plan of care ongoing. Sandra [facility] [phone],
[2024-01-05 12:16] LABS: COVID-19 Test Negative (Negative); IDNOW Serial# 152EDE1D
[2024-01-05 12:19] LABS: Acetaminophen LAB < 3 mcg/mL (<30); Alanine Aminotransferase 9 U/L (0-40); Albumin Level 4.1 g/dL (3.5-5.0); Alkaline Phosphatase 64 U/L (39-117); Anion Gap 13 (12-20); Aspartate Amino Transferase 13 U/L (5-37); Bilirubin Total 0.6 mg/dL (0.0-1.0); Blood Urea Nitrogen 23 mg/dL (9-16); Calcium 9.2 mg/dL (8.4-10.2); Carbon Dioxide 27 mmol/L (22-29); Chloride 106 mmol/L (96-108); Creatinine Clr Calc Pharmacy 64.4; Estimated Glomerular Filt Rate 51; Ethanol < 10 mg/dL; Glucose Random 82 mg/dL (60-115); Potassium 4.6 mmol/L (3.3-5.1); Salicylate < 5.0 mg/dL (15-30); Sodium 141 mmol/L (135-145)
--- NOTE | 2024-01-05 15:11 | MHC.CARE ---
T/W spoke with Pt's father. Pt's father reported he is the HCP however it is not invoked at this time. He was informed that Pt is in the hospital at this time and safe however when he is transferred to a unit Pt will need to sign an DAQUAN for father to speak with TX team.
--- NOTE | 2024-01-05 16:09 | PHA.MEDREC ---
Addendum entered by Regine Morales RPh 01/05/24 16:28: Reviewed by [facility] Original Note: Pharmacy Consult ? Medication Reconciliation Pharmacy has completed the medication reconciliation. Spoke to patients nurse Sandra from [facility] to confirm med list. Sandra states patient is no longer taking Amitriptyline 10 mg. Nurse said patient takes Clozapine 300 mg at bedtime as for last dose she doesn't know if patient received his bedtime meds last night (01/04/24. The last time she knows patient received a dose was on 01/03/24. Rincon Carbonate is now 300 mg BID, and Abilify 5 mg and Tamsulosin 0.4 mg patient takes at bedtime.
[2024-01-05 16:14] LABS: Lithium 1.19 mmol/L (0.60-1.20)
[2024-01-05 16:56] VITALS: BP 136/74; PULSE 89; RESP 14; TEMP 36.9; O2SAT 94
--- NOTE | 2024-01-05 17:28 | PC.NURSE ---
Med administration delayed d/t unverified by pharmacy.
[2024-01-05 18:39] LABS: Glucose, Whole Blood 90 mg/dL (60-115)
[2024-01-05] MEDS: Sertraline HCL 100 MG TABLET PO ×2 (19:21→22:46)
[2024-01-05] MEDS: Omeprazole 20 MG CAPSULE.DR PO (19:21)
[2024-01-05] MEDS: metFORMIN HCl ER 500 MG TAB.ER.24H PO (19:22)
[2024-01-05] MEDS: LORazepam 1 MG TABLET PO (19:24)
--- NOTE | 2024-01-05 19:30 | PC.NURSE ---
Pt has been able to follow commands, eat w/o support. Took pills whole iwth water. Skin pwd. moist MM. Unable to state needs.
[2024-01-05] MEDS: Lithium Carbonate 300 MG CAPSULE PO (22:45)
[2024-01-05] MEDS: ARIPiprazole 5 MG TABLET PO (22:46)
[2024-01-05] MEDS: Tamsulosin HCL 0.4 MG CAPSULE PO (22:57)
[2024-01-05] MEDS: cloZAPine 100 MG TABLET 300 MG PO (22:57)
[2024-01-05] MEDS: Docusate Sodium 100 MG CAPSULE 200 MG PO (22:57)
[2024-01-06] MEDS: Lithium Carbonate 300 MG CAPSULE PO (09:30)
[2024-01-06] MEDS: Sertraline HCL 100 MG TABLET PO ×2 (09:30→20:11)
[2024-01-06] MEDS: Omeprazole 20 MG CAPSULE.DR PO (09:30)
[2024-01-06] MEDS: metFORMIN HCl ER 500 MG TAB.ER.24H PO (09:30)
[2024-01-06] MEDS: Docusate Sodium 100 MG CAPSULE 200 MG PO ×2 (09:30→20:10)
[2024-01-06] MEDS: LORazepam 1 MG TABLET PO (09:30)
[2024-01-06 11:14] VITALS: BP 113/67; PULSE 87; RESP 14; TEMP 36.8; O2SAT 97
[2024-01-06 12:45] VITALS: BP 128/68; PULSE 93; RESP 20; TEMP 36.6; O2SAT 97
[2024-01-06 14:13] VITALS: BMI 30.3
[2024-01-06] MEDS: LORazepam 1 MG TABLET 2 MG PO ×2 (15:27→20:10)
--- NOTE | 2024-01-06 18:00 | PC.ADMIT ---
This is on of multiple admissions for this 58 y.o. male to the Behavioral Health units at [facility]. Referred by [facility] Care Team with Dx of Schizoaffective disorder, depressive type. Catatonic presentation. Nurse to nurse done prior to admission. Arrived on unit at 1205 and placed on 5 min safety checks, unlocked bathroom. Section 12B signed by Dr Crane after meeting with pt. Precipitating events to admission: brought in by ambulance to [facility] ED due to [facility] staff finding he was unable to speak at his home. Pt opened door to [facility] staff at his home, but was unable to respond to questions. Unable to respond during admission process, blankly stared at this verse writer. Vague responses noted few times during admission process. Able to sign consents when place to sign indicated/explanations given; slow responses/signatures noted. Slight soiling of feces noted in underwear on electronic data interchange specialist/skin check. Showered upon admission to unit with staff assist. Able to wash body parts with direction from staff. Able to eat sandwich, drink gingerale with staff direction for lunch. Required cueing to move forward with ambulation; slow gait noted. Required cueing to toilet, sit on bed and lie down. Required assistance with covering with bed linens. Rested in bed after lunch. Toileted x2 without results. Admission orders received from Dr Crane. Scheduled Ativan 2mg po given at 1527. Exited room independently at 1630 when informed supper was on unit. Ate 100% supper independently. Slight improvement with responses noted, able to respond to simple questions asked when only yes or no was required. Exited community area, found own room, rested in bed and covered self with bed linens after supper. Clarence level 1.19 01/05/24. Clarence level to be drawn tomorrow. ETOH <10, Tox screen not done.
--- NOTE | 2024-01-06 18:49 | HO.PSYADMNOT ---
HPI Date of Service: 01/06/24 Chief Complaint: catatonia HPI Narrative: per CARE team cynthia, pt was BIBA to [facility] ED after [facility] workers made a home visit and found him catatonic. pt was unable to engage with staff from [facility], EMS, ED, or CARE team. 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 per outpt team, pt was able to indicate he was having thoughts of harming himself when assessed in his home. on interview with MD on the unit, pt was unable to answer more than one question. blank stare. section 12b completed. Past Psychiatric History: Inpatient: multiple in the past. h/o ECT for catatonia. OP: [facility] Past medication trials: clozaril, ativan, sertraline, olanzapine. Medical Evaluation Reviewed: Yes [facility] Medical History Mild sleep apnea Nocturnal hypoxia Routine medical exam Joint inflammation of right hand and wrist Status post fall Adult general medical exam Screening for colon cancer Screening for prostate cancer Cough Schizophrenia, catatonic BPH (benign prostatic hyperplasia) Essential (primary) hypertension Diabetes mellitus Surgical History History of colonoscopy (~06/15/21) History of tooth extraction History of root canal procedure Family History: unknown Social History: lives independently, works, drives. apartment in [place]. Substance History: none noted Trauma History: unknown Diagnostics Vital Signs (24Hr): Vital Signs - 24 hr 01/06/24 11:14 01/06/24 12:45 Temperature 98.3 F 97.9 F Pulse Rate 87 93 Respiratory Rate 14 20 Blood Pressure 113/67 128/68 Pulse Oximetry 97 97 Oxygen Delivery Method Room Air Room Air BMI result Body Mass Index 30.3 Labs 01/05/24 11:49 01/05/24 11:49 Labs: Laboratory Results - last 48 hr 01/05/24 01/05/24 01/05/24 11:49 15:51 18:36 WBC 8.9 RBC 4.82 Hgb 13.9 L Hct 42.6 MCV 88.4 MCH 28.8 MCHC 32.6 RDW 13.2 Plt Count 169 MPV 11.1 Immature Gran % (Auto) 0.6 H Neut % (Auto) 79.4 H Lymph % (Auto) 13.1 L [place] % (Auto) 6.8 Eos % (Auto) 0.0 Baso % (Auto) 0.1 Lymph # (Auto) 1.2 [place] # (Auto) 0.6 Eos # (Auto) 0.0 Baso # (Auto) 0.0 Abs Immat Gran (auto) 0.05 H Absolute Neuts (auto) 7.1 Absolute Nucleated RBC 0.000 Nucleated RBC % (auto) 0.0 Sodium 141 Potassium 4.6 Chloride 106 Carbon Dioxide 27 Anion Gap 13 BUN 23 H Creatinine 1.42 H Estim Creat Clear Calc 64.4 Estimated GFR 51 POC Glucose 90 Random Glucose 82 Calcium 9.2 Total Bilirubin 0.6 AST 13 ALT 9 Alkaline Phosphatase 64 Total Protein 7.0 Albumin 4.1 Salicylates < 5.0 L Acetaminophen < 3 [place] 1.19 Ethyl Alcohol < 10 COVID-19 ([facility]) Negative COVID-19 Clin Com See Note Meds/Allergies Meds Home Medications ?Medication ?Instructions ?Recorded ?Confirmed ?Type aripiprazole 5 mg tablet 5 mg PO BEDTIME 01/05/24 01/05/24 History lithium carbonate 300 mg capsule 300 mg PO BID 01/05/24 01/05/24 History omeprazole 20 mg capsule,delayed 20 mg PO DAILY@0630 01/05/24 01/05/24 History release polyethylene glycol 3350 17 17 g PO DAILY 01/05/24 01/05/24 History gram/dose oral powder (Miralax) sennosides 8.6 mg tablet (senna) 17.2 mg PO BEDTIME 01/05/24 01/05/24 History tamsulosin 0.4 mg capsule 0.4 mg PO BEDTIME 01/05/24 01/05/24 History Allergies Allergies Allergy/AdvReac Type Severity Reaction Status Date / Time No Known Allergies [NKA] Allergy Unknown NONE Verified 01/05/24 11:31 Mental Status Exam Mental Status Exam Narrative: disheveled, hospital garb. PMR. poor eye contact. cooperative. speech almost nil, nearly inaudible. only able to say yes on the rhetorical question, you're really slowed down again, aren't you? thoughts difficult to discern, single response was linear. affect flat. mood, SI/HI/AVH unable to assess (pt made no response to questions). Assessment & Plan Assessment & Plan (1) Catatonia: Status: Acute Code(s): F06.1 - Catatonic disorder due to known physiological condition (2) Schizoaffective disorder, depressive type: Status: Acute Code(s): F25.1 - Schizoaffective disorder, depressive type (3) Essential (primary) hypertension: Status: Acute Code(s): I10 - Essential (primary) hypertension (4) Diabetes mellitus: Status: Acute Qualifiers: Diabetes mellitus type: type 2 Diabetes mellitus half-way insulin use: without half-way use Diabetes mellitus complication status: with hyperglycemia Qualified Code(s): E11.65 - Type 2 diabetes mellitus with hyperglycemia Code(s): E11.9 - Type 2 diabetes mellitus without complications (5) Sleep apnea: Status: Acute Code(s): G47.30 - Sleep apnea, unspecified Plan continue home meds. add ativan 2 TID. attempt to obtain consent for ECT, as ECT has historically been most effective Tx for this pt's catatonia. supportive care. Patient educated on: medication risk/benefits and ECT Reason for continued inpatient stay Substantial Risk for: inability to function Statement Statement: I have reviewed the history and physical and performed a pertinent examination on my patient. No changes have occurred unless specified. If the History and Physical was not performed prior to admission, the Hospitalist's service will be consulted for completing the admission physical. Time Spent With Patient Time: Total time managing care of this patient today __55__ minutes.
[2024-01-06 20:00] VITALS: BP 134/76; PULSE 75; RESP 16; TEMP 36; O2SAT 97
[2024-01-06] MEDS: ARIPiprazole 5 MG TABLET PO (20:09)
[2024-01-06] MEDS: cloZAPine 100 MG TABLET 300 MG PO (20:10)
[2024-01-06] MEDS: Sennosides 8.6 MG TABLET 17.2 MG PO (20:15)
[2024-01-06] MEDS: Tamsulosin HCL 0.4 MG CAPSULE PO (20:15)
[2024-01-07 08:03] LABS: Anion Gap 15 (12-20); Blood Urea Nitrogen 23 mg/dL (9-16); Calcium 9.2 mg/dL (8.4-10.2); Carbon Dioxide 25 mmol/L (22-29); Chloride 106 mmol/L (96-108); Creatinine Clr Calc Pharmacy 65.6; Estimated Glomerular Filt Rate 52; Glucose Random 132 mg/dL (60-115); Potassium 4.4 mmol/L (3.3-5.1); Sodium 142 mmol/L (135-145)
[2024-01-07 08:23] VITALS: BP 137/65; PULSE 92; RESP 20; TEMP 36.2; O2SAT 96
[2024-01-07] MEDS: Docusate Sodium 100 MG CAPSULE 200 MG PO (08:24)
[2024-01-07] MEDS: Omeprazole 20 MG CAPSULE.DR PO (08:25)
[2024-01-07] MEDS: metFORMIN HCl ER 500 MG TAB.ER.24H PO (08:25)
[2024-01-07] MEDS: LORazepam 1 MG TABLET 2 MG PO ×4 (08:26→20:58)
[2024-01-07] MEDS: polyethylene glycoL 3350 17 GM POWD.PACK PO (08:26)
[2024-01-07] MEDS: Sertraline HCL 100 MG TABLET PO ×2 (08:26→20:58)
--- NOTE | 2024-01-07 15:10 | P.PNPSI_ITS ---
Subjective Subjective Date of Service: 01/07/24 Reason For Visit: catatonia Interim History: minimal verbal output. per RN, some gurgling, better on elevation. generally mute with staff. ate breakfast on his own, had to be fed lunch. Mental Status Exam Mental Status Exam Narrative: disheveled, hospital garb. PMR. poor eye contact. cooperative. speech almost nil, nearly inaudible. thoughts difficult to discern, overtly linear. affect flat. mood, SI/HI/AVH unable to assess (pt made no response to questions). Diagnostics Vital Signs (24Hr): Vital Signs - 24 hr 01/06/24 20:00 01/07/24 08:23 Temperature 96.8 F 97.2 F Pulse Rate 75 92 Respiratory Rate 16 20 Blood Pressure 134/76 137/65 Pulse Oximetry 97 96 Oxygen Delivery Method Room Air Room Air BMI result Body Mass Index 30.3 Labs 01/05/24 11:49 01/07/24 07:36 Labs: Laboratory Results - last 48 hr 01/05/24 01/05/24 01/07/24 15:51 18:36 07:36 Sodium 142 Potassium 4.4 Chloride 106 Carbon Dioxide 25 Anion Gap 15 BUN 23 H Creatinine 1.39 Estim Creat Clear Calc 65.6 Estimated GFR 52 POC Glucose 90 Random Glucose 132 H Calcium 9.2 [place] 1.19 0.90 Medications Medications Current Medications Acetaminophen (Acetaminophen 325 Mg Tablet) 650 mg PO Q6H PRN PRN Reason: Headache/Pain Mild Scale (1-3) Al Hydroxide/Mg Hydroxide (Magnesium Hydrox/Alum Hydrox 30 Ml Oral.Susp) 30 ml PO Q6H PRN PRN Reason: Heartburn/Nausea Aripiprazole (Aripiprazole 5 Mg Tablet) 5 mg PO BEDTIME [facility] Last Admin: 01/06/24 20:09 Dose: 5 mg Clozapine (Clozapine 100 Mg Tablet) 300 mg PO BEDTIME [facility] Last Admin: 01/06/24 20:10 Dose: 300 mg Docusate Sodium (Docusate Sodium 100 Mg Capsule) 200 mg PO BID [facility] Last Admin: 01/07/24 08:24 Dose: 200 mg Hydroxyzine HCl (Hydroxyzine Hcl 25 Mg Tablet) 25 mg PO Q6H PRN PRN Reason: Anxiety [place] Carbonate ([place] Carbonate 300 Mg Capsule) 300 mg PO BID [facility] Last Admin: 01/06/24 09:30 Dose: 300 mg Lorazepam (Lorazepam 1 Mg Tablet) 2 mg PO QID [facility] Last Admin: 01/07/24 14:06 Dose: 2 mg Magnesium Hydroxide (Milk Of Magnesia 30 Ml Oral.Susp) 30 ml PO DAILY PRN PRN Reason: Constipation Metformin HCl (Metformin Hcl Er 500 Mg Tab.Er.24h) 500 mg PO DAILY [facility] Last Admin: 01/07/24 08:25 Dose: 500 mg Omeprazole (Omeprazole 20 Mg Capsule.Dr) 20 mg PO DAILY@0630 [facility] Last Admin: 01/07/24 08:25 Dose: 20 mg Polyethylene Glycol (Polyethylene Glycol 3350 17 Gm Powd.Pack) 17 gm PO DAILY [facility] Last Admin: 01/07/24 08:26 Dose: 17 gm Senna (Sennosides 8.6 Mg Tablet) 17.2 mg PO BEDTIME [facility] Last Admin: 01/06/24 20:15 Dose: 17.2 mg Sertraline HCl (Sertraline Hcl 100 Mg Tablet) 100 mg PO BID [facility] Last Admin: 01/07/24 08:26 Dose: 100 mg Tamsulosin HCl (Tamsulosin Hcl 0.4 Mg Capsule) 0.4 mg PO BEDTIME [facility] Last Admin: 01/06/24 20:15 Dose: 0.4 mg Trazodone HCl (Trazodone Hcl 50 Mg Tablet) 50 mg PO BEDTIME MRX1 PRN PRN Reason: Insomnia Allergies Allergies Allergy/AdvReac Type Severity Reaction Status Date / Time No Known Allergies [NKA] Allergy Unknown NONE Verified 01/05/24 11:31 Assessment & Plan Assessment & Plan (1) Catatonia: Status: Acute Code(s): F06.1 - Catatonic disorder due to known physiological condition (2) Schizoaffective disorder, depressive type: Status: Acute Code(s): F25.1 - Schizoaffective disorder, depressive type (3) Essential (primary) hypertension: Status: Acute Code(s): I10 - Essential (primary) hypertension (4) Diabetes mellitus: Qualifiers: Diabetes mellitus type: type 2 Diabetes mellitus assisted insulin use: without termite inspector use Diabetes mellitus complication status: with hyperglycemia Qualified Code(s): E11.65 - Type 2 diabetes mellitus with hyperglycemia Status: Acute Code(s): E11.9 - Type 2 diabetes mellitus without complications (5) Sleep apnea: Status: Acute Code(s): G47.30 - Sleep apnea, unspecified Plan 01/05: continue home meds. add ativan 2 TID. attempt to obtain consent for ECT, as ECT has historically been most effective Tx for this pt's catatonia. supportive care. 01/06: increase ativan to 2 QID for catatonia. CXR to R/O pneumonia. swallow eval for food safety. otherwise continue current mgmt. Reason for continued inpatient stay Substantial Risk for: inability to function Time Spent With Patient Time: Total time managing care of this patient today __25__ minutes.
[2024-01-07 20:00] VITALS: BP 134/84; PULSE 75; RESP 18; TEMP 36; O2SAT 92
[2024-01-07] MEDS: cloZAPine 100 MG TABLET 300 MG PO (20:57)
[2024-01-07] MEDS: ARIPiprazole 5 MG TABLET PO (20:57)
[2024-01-07] MEDS: Tamsulosin HCL 0.4 MG CAPSULE PO (21:14)
[2024-01-08] MEDS: Omeprazole 20 MG CAPSULE.DR PO (06:29)
[2024-01-08 09:00] VITALS: BP 134/84; PULSE 79; RESP 18; TEMP 36.8; O2SAT 95
[2024-01-08] MEDS: metFORMIN HCl ER 500 MG TAB.ER.24H PO (09:17)
[2024-01-08] MEDS: Docusate Sodium 100 MG CAPSULE 200 MG PO ×2 (09:17→20:28)
[2024-01-08] MEDS: LORazepam 1 MG TABLET 2 MG PO ×4 (09:17→20:29)
[2024-01-08] MEDS: Sertraline HCL 100 MG TABLET PO ×2 (09:17→20:28)
[2024-01-08] MEDS: polyethylene glycoL 3350 17 GM POWD.PACK PO (09:18)
--- NOTE | 2024-01-08 15:15 | MHC.SL.SWA ---
Speech Pathologist Impression: Risk of Aspiration, Oropharyngeal Dysphagia Risk of Aspiration Due to: Reduced Cognition Dysphasia Diet Status: DOWNGRADE liquids from THIN to NTL Liquid Consistency and Strategies for Safe Swallow: Liquid Intake Recommendation: [place] Thick Liquid Intake Strategies: Small Sips No Straws Solid Food Consistency: Dietary Recommendations: Regular Additional Modifications to Solid Foods: Patient seen for bedside swallow. Coughing on thin liquids. Tendency to take impulsive sips and pack mouth full of food. Recommend REGULAR texture solids and NECTAR THICK liquids, pills WHOLE in PUREE. Patient will need 1:1 supervision with PO intake, cues for patient to take small, individual bites/sips. Oral Medication Intake: Whole with Puree Please contact the pharmacy regarding appropriate crushable or liquid drug formulations that are available whenever modified delivery is recommended. Compensatory Strategies and Precautions to be Taken for Safe Swallow: Sitting Upright (90 deg) Double Swallow No Straw Small Bites and Sips Alternate Liquids/Solids Rate of Ingestion Change Avoid Specific Foods Supervision While Eating and Drinking for Safe Swallow: Total Supervision (1:1) Foods to Avoid: Mixed consistencies Swallowing Recommended Treatments: Compens. Strategy Educat. Recommendation for Speech: Inpatient Speech Therapy Frequency/Duration: M-F PRN Date Range for Service Req: Timeline to reassess: Dry Kiln Worker Clinican/Clinical Fellow: No Supervisory Statement: I have reviewed and agree with the student/clinical fellow's documentation: N/A Speech Language Pathologist: Nona Whitmore M.A., CCC-SALES AND MARKETING PROFESSIONAL
--- NOTE | 2024-01-08 16:14 | P.PNPSI_ITS ---
Subjective Subjective Date of Service: 01/08/24 Reason For Visit: catatonia Interim History: minimal verbal communication. using some head gestures. c/o feeling tired, so ativan will not be increased. encouraged to do ECT. per staff, no change in presentation. seen for swallow eval. Mental Status Exam Mental Status Exam Narrative: disheveled, hospital garb. PMR. poor eye contact. cooperative. speech almost nil, nearly inaudible. thoughts difficult to discern, overtly linear. affect flat. mood, SI/HI/AVH unable to assess (pt made no response to questions). Diagnostics Vital Signs (24Hr): Vital Signs - 24 hr 01/07/24 20:00 01/08/24 09:00 Temperature 96.8 F 98.2 F Pulse Rate 75 79 Respiratory Rate 18 18 Blood Pressure 134/84 134/84 Pulse Oximetry 92 95 Oxygen Delivery Method Room Air Room Air BMI result Body Mass Index 30.3 Labs 01/05/24 11:49 01/07/24 07:36 Labs: Laboratory Results - last 48 hr 01/07/24 07:36 Sodium 142 Potassium 4.4 Chloride 106 Carbon Dioxide 25 Anion Gap 15 BUN 23 H Creatinine 1.39 Estim Creat Clear Calc 65.6 Estimated GFR 52 Random Glucose 132 H Calcium 9.2 [place] 0.90 Imaging Radiology Impressions: ITS Impressions Chest X-Ray 01/07/24 13:27 IMPRESSION: Bronchial wall thickening may be infectious and/or inflammatory in etiology. Electronically signed by: Marianna Torres MD 01/07/2024 03:31 PM EDT RP Medications Medications Current Medications Acetaminophen (Acetaminophen 325 Mg Tablet) 650 mg PO Q6H PRN PRN Reason: Headache/Pain Mild Scale (1-3) Al Hydroxide/Mg Hydroxide (Magnesium Hydrox/Alum Hydrox 30 Ml Oral.Susp) 30 ml PO Q6H PRN PRN Reason: Heartburn/Nausea Aripiprazole (Aripiprazole 5 Mg Tablet) 5 mg PO BEDTIME [facility] Last Admin: 01/07/24 20:57 Dose: 5 mg Clozapine (Clozapine 100 Mg Tablet) 300 mg PO BEDTIME [facility] Last Admin: 01/07/24 20:57 Dose: 300 mg Docusate Sodium (Docusate Sodium 100 Mg Capsule) 200 mg PO BID [facility] Last Admin: 01/08/24 09:17 Dose: 200 mg Hydroxyzine HCl (Hydroxyzine Hcl 25 Mg Tablet) 25 mg PO Q6H PRN PRN Reason: Anxiety [place] Carbonate ([place] Carbonate 300 Mg Capsule) 300 mg PO BID [facility] Last Admin: 01/06/24 09:30 Dose: 300 mg Lorazepam (Lorazepam 1 Mg Tablet) 2 mg PO QID [facility] Last Admin: 01/08/24 12:44 Dose: 2 mg Magnesium Hydroxide (Milk Of Magnesia 30 Ml Oral.Susp) 30 ml PO DAILY PRN PRN Reason: Constipation Metformin HCl (Metformin Hcl Er 500 Mg Tab.Er.24h) 500 mg PO DAILY [facility] Last Admin: 01/08/24 09:17 Dose: 500 mg Omeprazole (Omeprazole 20 Mg Capsule.Dr) 20 mg PO DAILY@0630 [facility] Last Admin: 01/08/24 06:29 Dose: 20 mg Polyethylene Glycol (Polyethylene Glycol 3350 17 Gm Powd.Pack) 17 gm PO DAILY [facility] Last Admin: 01/08/24 09:18 Dose: 17 gm Senna (Sennosides 8.6 Mg Tablet) 17.2 mg PO BEDTIME [facility] Last Admin: 01/07/24 21:05 Dose: Not Given Sertraline HCl (Sertraline Hcl 100 Mg Tablet) 100 mg PO BID [facility] Last Admin: 01/08/24 09:17 Dose: 100 mg Tamsulosin HCl (Tamsulosin Hcl 0.4 Mg Capsule) 0.4 mg PO BEDTIME [facility] Last Admin: 01/07/24 21:14 Dose: 0.4 mg Trazodone HCl (Trazodone Hcl 50 Mg Tablet) 50 mg PO BEDTIME MRX1 PRN PRN Reason: Insomnia Allergies Allergies Allergy/AdvReac Type Severity Reaction Status Date / Time No Known Allergies [NKA] Allergy Unknown NONE Verified 01/05/24 11:31 Assessment & Plan Assessment & Plan (1) Catatonia: Status: Acute Code(s): F06.1 - Catatonic disorder due to known physiological condition (2) Schizoaffective disorder, depressive type: Status: Acute Code(s): F25.1 - Schizoaffective disorder, depressive type (3) Essential (primary) hypertension: Status: Acute Code(s): I10 - Essential (primary) hypertension (4) Diabetes mellitus: Qualifiers: Diabetes mellitus type: type 2 Diabetes mellitus senior care insulin use: without intermediate teacher use Diabetes mellitus complication status: with hyperglycemia Qualified Code(s): E11.65 - Type 2 diabetes mellitus with hyperglycemia Status: Acute Code(s): E11.9 - Type 2 diabetes mellitus without complications (5) Sleep apnea: Status: Acute Code(s): G47.30 - Sleep apnea, unspecified Plan 01/05: continue home meds. add ativan 2 TID. attempt to obtain consent for ECT, as ECT has historically been most effective Tx for this pt's catatonia. supportive care. 01/06: increase ativan to 2 QID for catatonia. CXR to R/O pneumonia. swallow eval for food safety. otherwise continue current mgmt. 01/07: no change in presentation. per swallow eval at risk of aspiration will need modified diet (ordered). CXR not showing pneumonia. c/o sedation, will continue ativan at current dose. encouraging ECT. Reason for continued inpatient stay Substantial Risk for: inability to function and rapid decompensation Time Spent With Patient Time: Total time managing care of this patient today ____ minutes.
[2024-01-08 20:00] VITALS: BP 121/65; PULSE 65; RESP 18; TEMP 36; O2SAT 95
[2024-01-08] MEDS: ARIPiprazole 5 MG TABLET PO (20:28)
[2024-01-08] MEDS: Sennosides 8.6 MG TABLET 17.2 MG PO (20:28)
[2024-01-08] MEDS: Tamsulosin HCL 0.4 MG CAPSULE PO (20:28)
[2024-01-08] MEDS: cloZAPine 100 MG TABLET 300 MG PO (20:28)
[2024-01-09] MEDS: Omeprazole 20 MG CAPSULE.DR PO (06:36)
[2024-01-09 08:00] VITALS: BP 139/76; PULSE 71; RESP 16; TEMP 36.8; O2SAT 95
[2024-01-09] MEDS: metFORMIN HCl ER 500 MG TAB.ER.24H PO (08:41)
[2024-01-09] MEDS: LORazepam 1 MG TABLET 2 MG PO ×4 (08:41→21:40)
[2024-01-09] MEDS: Docusate Sodium 100 MG CAPSULE 200 MG PO ×2 (08:42→21:41)
[2024-01-09] MEDS: polyethylene glycoL 3350 17 GM POWD.PACK PO (08:47)
[2024-01-09] MEDS: Sertraline HCL 100 MG TABLET PO ×2 (08:48→21:43)
--- NOTE | 2024-01-09 10:52 | P.PNPSI_ITS ---
Subjective Subjective Date of Service: 01/09/24 Reason For Visit: catatonia Subjective Notes: Section 12B Interim History: The nursing staff reported the patient had been on his bed most of the time, minimally interacting with peers or staff. The patient was brought to the hospital after he was seen by his outpatient providers completely neglected. On interview the patient was very passive, nearly catatonic. He was unable to recognize me since I did ECT on him last February. Mental Status Exam Mental Status Exam Patient Appearance: Appropriate Patient Orientation: Person and Situation Level of Consciousness: Awake and Appropriate Patient Behavior: Guarded and Passive Mood Description: Withdrawn Affect Description: Constricted Patient Cognition Impaired: Yes Ability to Follow Directions: Fair Speech Pattern: Impoverished and Monotone Hallucinations: None Delusions: Not Present Thought Process: Distracted and Slowed Thinking Thought Content: positive for [place] and positive for Poverty of Content Judgement: Poor Diagnostics Vital Signs (24Hr): Vital Signs - 24 hr 01/08/24 20:00 01/09/24 08:00 Temperature 96.8 F 98.2 F Pulse Rate 65 71 Respiratory Rate 18 16 Blood Pressure 121/65 139/76 Pulse Oximetry 95 95 Oxygen Delivery Method Room Air Room Air BMI result Body Mass Index 30.3 Labs 01/05/24 11:49 01/07/24 07:36 Imaging Radiology Impressions: ITS Impressions Chest X-Ray 01/07/24 13:27 IMPRESSION: Bronchial wall thickening may be infectious and/or inflammatory in etiology. Electronically signed by: Marianna Torres MD 01/07/2024 03:31 PM EDT RP Medications Medications Current Medications Acetaminophen (Acetaminophen 325 Mg Tablet) 650 mg PO Q6H PRN PRN Reason: Headache/Pain Mild Scale (1-3) Al Hydroxide/Mg Hydroxide (Magnesium Hydrox/Alum Hydrox 30 Ml Oral.Susp) 30 ml PO Q6H PRN PRN Reason: Heartburn/Nausea Aripiprazole (Aripiprazole 5 Mg Tablet) 5 mg PO BEDTIME KRISTIN Last Admin: 01/08/24 20:28 Dose: 5 mg Clozapine (Clozapine 100 Mg Tablet) 300 mg PO BEDTIME KRISTIN Last Admin: 01/08/24 20:28 Dose: 300 mg Docusate Sodium (Docusate Sodium 100 Mg Capsule) 200 mg PO BID KRISTIN Last Admin: 01/09/24 08:42 Dose: 200 mg Hydroxyzine HCl (Hydroxyzine Hcl 25 Mg Tablet) 25 mg PO Q6H PRN PRN Reason: Anxiety [place] Carbonate ([place] Carbonate 300 Mg Capsule) 300 mg PO BID [facility] Last Admin: 01/06/24 09:30 Dose: 300 mg Lorazepam (Lorazepam 1 Mg Tablet) 2 mg PO QID [facility] Last Admin: 01/09/24 08:41 Dose: 2 mg Magnesium Hydroxide (Milk Of Magnesia 30 Ml Oral.Susp) 30 ml PO DAILY PRN PRN Reason: Constipation Metformin HCl (Metformin Hcl Er 500 Mg Tab.Er.24h) 500 mg PO DAILY [facility] Last Admin: 01/09/24 08:41 Dose: 500 mg Omeprazole (Omeprazole 20 Mg Capsule.Dr) 20 mg PO DAILY@0630 [facility] Last Admin: 01/09/24 06:36 Dose: 20 mg Polyethylene Glycol (Polyethylene Glycol 3350 17 Gm Powd.Pack) 17 gm PO DAILY [facility] Last Admin: 01/09/24 08:47 Dose: 17 gm Senna (Sennosides 8.6 Mg Tablet) 17.2 mg PO BEDTIME [facility] Last Admin: 01/08/24 20:28 Dose: 17.2 mg Sertraline HCl (Sertraline Hcl 100 Mg Tablet) 100 mg PO BID [facility] Last Admin: 01/09/24 08:48 Dose: 100 mg Tamsulosin HCl (Tamsulosin Hcl 0.4 Mg Capsule) 0.4 mg PO BEDTIME [facility] Last Admin: 01/08/24 20:28 Dose: 0.4 mg Trazodone HCl (Trazodone Hcl 50 Mg Tablet) 50 mg PO BEDTIME MRX1 PRN PRN Reason: Insomnia Allergies Allergies Allergy/AdvReac Type Severity Reaction Status Date / Time No Known Allergies [NKA] Allergy Unknown NONE Verified 01/05/24 11:31 Assessment & Plan Assessment & Plan (1) Catatonia: Status: Acute Code(s): F06.1 - Catatonic disorder due to known physiological condition (2) Schizoaffective disorder, depressive type: Status: Acute Code(s): F25.1 - Schizoaffective disorder, depressive type (3) Essential (primary) hypertension: Status: Acute Code(s): I10 - Essential (primary) hypertension (4) Diabetes mellitus: Qualifiers: Diabetes mellitus complication status: with hyperglycemia Diabetes mellitus watermaster insulin use: without half-way use Diabetes mellitus type: t ype 2 Qualified Code(s): E11.65 - Type 2 diabetes mellitus with hyperglycemia Status: Acute Code(s): E11.9 - Type 2 diabetes mellitus without complications (5) Sleep apnea: Status: Acute Code(s): G47.30 - Sleep apnea, unspecified Plan 01/05: continue home meds. add ativan 2 TID. attempt to obtain consent for ECT, as ECT has historically been most effective Tx for this pt's catatonia. supportive care. 01/06: increase ativan to 2 QID for catatonia. CXR to R/O pneumonia. swallow eval for food safety. otherwise continue current mgmt. 01/07: no change in presentation. per swallow eval at risk of aspiration will need modified diet (ordered). CXR not showing pneumonia. c/o sedation, will continue ativan at current dose. encouraging ECT. 01/08 continue same treatment, we will do referral for ECT. Reason for continued inpatient stay Substantial Risk for: inability to function, rapid decompensation and med/psych decompensation Time Spent With Patient Time: Total time managing care of this patient today ___20_ minutes.
--- NOTE | 2024-01-09 13:47 | MHC.SL.DTX ---
Dysphagia Diet modifications: Last documented Solid diet consistencies: Grnd/Mech Altered (NDD2) Changes made to current diet?: No Liquid Consistency and Strategies: Liquid Intake Recommendation: [place] Thick Compensatory Strategies for Safe Swallow: Small Sips No Straws Compensatory Strategies for Safe Swallow(b): Sitting Upright (90 deg) No Straw Liquids from Cup Small Bites and Sips Rate of Ingestion Change Solid Food Consistency: Dietary Recommendations: Regular Additional Modifications to Solids: Patient seen for bedside swallow. Coughing on thin liquids. Tendency to take impulsive sips and pack mouth full of food. Recommend REGULAR texture solids and NECTAR THICK liquids, pills WHOLE in PUREE. Patient will need 1:1 supervision with PO intake, cues for patient to take small, individual bites/sips. Oral Medication Intake: Whole with Puree Strategies and Precautions to be Taken for Safe Swallow: Sitting Upright (90 deg) No Straw Liquids from Cup Small Bites and Sips Rate of Ingestion Change Supervision While Eating and/Drinking: Total Supervision (1:1) Foods to Avoid: Mixed consistencies Swallowing Recommended Treatments: Oral Motor Exercises Base of Tongue Exercises Pharyngeal Resistive Exer Compens. Strategy Educat. Level of Impact on: Daily activities: None Interpersonal interactions: Education: None Employment: None Community: Mild Prognosis for Improvement: Good Recommendation for Speech: Inpatient Speech Therapy Comment: Patient seen for bedside swallow. Coughing on thin liquids. Tendency to take impulsive sips and pack mouth full of food. Recommend REGULAR texture solids and NECTAR THICK liquids, pills WHOLE in PUREE. Patient will need 1:1 supervision with PO intake, cues for patient to take small, individual bites/sips. Frequency/Duration: M-F PRN Additional Comments: Treatment: Pt seen after lunch. WARP HAULER reports no difficulty with current diet of Regular Solids and [place]-Thick Liquids. HAND KISS SETTER reassessed for toleration of Regular Solid and Thin Liquids. He is noted to have a very wet and gurgled vocal quality at rest. He is asked to clear his throat to which he responds that he can't. Pt tolerated his first two sips of Thin Liquids with no overt s/s of aspiration. Pt noted to sit more upright when drinking liquids independently. Unfortunately, on his third sip he demonstrated weak, insufficient cough and throat clearing. No further PO trials were attempted. Pt does appear better today with medication changes. HAND KISS SETTER will continue to monitor for safe return to baseline Thin Liquids. Race Steward Clinican/Clinical Fellow: No Supervisory Statement: I have reviewed and agree with the student/clinical fellow's documentation: N/A Speech Language Pathologist: Jet Serrano M.A., [facility]-HAND KISS SETTER
[2024-01-09 20:00] VITALS: BP 121/83; PULSE 77; RESP 16; TEMP 36.4; O2SAT 97
[2024-01-09] MEDS: cloZAPine 100 MG TABLET 300 MG PO (21:39)
[2024-01-09] MEDS: Tamsulosin HCL 0.4 MG CAPSULE PO (21:40)
[2024-01-09] MEDS: Sennosides 8.6 MG TABLET 17.2 MG PO (21:40)
[2024-01-09] MEDS: ARIPiprazole 5 MG TABLET PO (21:41)
[2024-01-10] MEDS: Omeprazole 20 MG CAPSULE.DR PO (05:40)
[2024-01-10 08:00] VITALS: BP 124/76; PULSE 76; RESP 18; TEMP 36.8; O2SAT 98
[2024-01-10] MEDS: polyethylene glycoL 3350 17 GM POWD.PACK PO (09:27)
[2024-01-10] MEDS: LORazepam 1 MG TABLET 2 MG PO ×4 (09:27→20:54)
[2024-01-10] MEDS: Sertraline HCL 100 MG TABLET PO ×2 (09:28→20:54)
[2024-01-10] MEDS: Docusate Sodium 100 MG CAPSULE 200 MG PO ×2 (09:28→20:54)
[2024-01-10] MEDS: metFORMIN HCl ER 500 MG TAB.ER.24H PO (09:28)
--- NOTE | 2024-01-10 15:15 | P.PNPSI_ITS ---
Subjective Subjective Date of Service: 01/10/24 Reason For Visit: catatonia Subjective Notes: Section 12B Interim History: The nursing staff reported the patient had been having severe thought blocking staying on his bed most of the time. Was seen responding to internal stimuli. He has been visible in the unit with encouragement. On interview the patient was unable to verbalize how he was feeling he looks nearly catatonic. We are going to filed for Section 7 and 8 since the patient can not sign for himself into the hospital due to catatonia. We will continue with Ativan 2 mg p.o. 4 times a day Mental Status Exam Mental Status Exam Patient Appearance: Appropriate Patient Orientation: Person Level of Consciousness: Awake Patient Behavior: Guarded and Passive Mood Description: Calm Affect Description: Blunted Patient Cognition Impaired: Yes Ability to Follow Directions: Fair Speech Pattern: Impoverished Hallucinations: None Delusions: Ideas of Reference Thought Process: Distracted and Slowed Thinking Thought Content: positive for [place] and positive for Poverty of Content Judgement: Poor Diagnostics Vital Signs (24Hr): Vital Signs - 24 hr 01/09/24 20:00 01/10/24 08:00 Temperature 97.5 F 98.2 F Pulse Rate 77 76 Respiratory Rate 16 18 Blood Pressure 121/83 124/76 Pulse Oximetry 97 98 Oxygen Delivery Method Room Air Room Air BMI result Body Mass Index 30.3 Labs 01/05/24 11:49 01/07/24 07:36 Imaging Radiology Impressions: ITS Impressions Chest X-Ray 01/07/24 13:27 IMPRESSION: Bronchial wall thickening may be infectious and/or inflammatory in etiology. Electronically signed by: Marianna Torres MD 01/07/2024 03:31 PM EDT Medications Medications Current Medications Acetaminophen (Acetaminophen 325 Mg Tablet) 650 mg PO Q6H PRN PRN Reason: Headache/Pain Mild Scale (1-3) Al Hydroxide/Mg Hydroxide (Magnesium Hydrox/Alum Hydrox 30 Ml Oral.Susp) 30 ml PO Q6H PRN PRN Reason: Heartburn/Nausea Aripiprazole (Aripiprazole 5 Mg Tablet) 5 mg PO BEDTIME KRISTIN Last Admin: 01/09/24 21:41 Dose: 5 mg Clozapine (Clozapine 100 Mg Tablet) 300 mg PO BEDTIME KRISTIN Last Admin: 01/09/24 21:39 Dose: 300 mg Docusate Sodium (Docusate Sodium 100 Mg Capsule) 200 mg PO BID [facility] Last Admin: 01/10/24 09:28 Dose: 200 mg Hydroxyzine HCl (Hydroxyzine Hcl 25 Mg Tablet) 25 mg PO Q6H PRN PRN Reason: Anxiety [place] Carbonate ([place] Carbonate 300 Mg Capsule) 300 mg PO BID [facility] Last Admin: 01/06/24 09:30 Dose: 300 mg Lorazepam (Lorazepam 1 Mg Tablet) 2 mg PO QID [facility] Last Admin: 01/10/24 14:01 Dose: 2 mg Magnesium Hydroxide (Milk Of Magnesia 30 Ml Oral.Susp) 30 ml PO DAILY PRN PRN Reason: Constipation Metformin HCl (Metformin Hcl Er 500 Mg Tab.Er.24h) 500 mg PO DAILY [facility] Last Admin: 01/10/24 09:28 Dose: 500 mg Omeprazole (Omeprazole 20 Mg Capsule.Dr) 20 mg PO DAILY@0630 [facility] Last Admin: 01/10/24 05:40 Dose: 20 mg Polyethylene Glycol (Polyethylene Glycol 3350 17 Gm Powd.Pack) 17 gm PO DAILY [facility] Last Admin: 01/10/24 09:27 Dose: 17 gm Senna (Sennosides 8.6 Mg Tablet) 17.2 mg PO BEDTIME [facility] Last Admin: 01/09/24 21:40 Dose: 17.2 mg Sertraline HCl (Sertraline Hcl 100 Mg Tablet) 100 mg PO BID [facility] Last Admin: 01/10/24 09:28 Dose: 100 mg Tamsulosin HCl (Tamsulosin Hcl 0.4 Mg Capsule) 0.4 mg PO BEDTIME [facility] Last Admin: 01/09/24 21:40 Dose: 0.4 mg Trazodone HCl (Trazodone Hcl 50 Mg Tablet) 50 mg PO BEDTIME MRX1 PRN PRN Reason: Insomnia Allergies Allergies Allergy/AdvReac Type Severity Reaction Status Date / Time No Known Allergies [NKA] Allergy Unknown NONE Verified 01/05/24 11:31 Assessment & Plan Assessment & Plan (1) Catatonia: Status: Acute Code(s): F06.1 - Catatonic disorder due to known physiological condition (2) Schizoaffective disorder, depressive type: Status: Acute Code(s): F25.1 - Schizoaffective disorder, depressive type (3) Essential (primary) hypertension: Status: Acute Code(s): I10 - Essential (primary) hypertension (4) Diabetes mellitus: Qualifiers: Diabetes mellitus type: type 2 Diabetes mellitus senior living insulin use: without senior living use Diabetes mellitus complication status: with hyperglycemia Qualified Code(s): E11.65 - Type 2 diabetes mellitus with hyperglycemia Status: Acute Code(s): E11.9 - Type 2 diabetes mellitus without complications (5) Sleep apnea: Status: Acute Code(s): G47.30 - Sleep apnea, unspecified Plan 01/05: continue home meds. add ativan 2 TID. attempt to obtain consent for ECT, as ECT has historically been most effective Tx for this pt's catatonia. supportive care. 01/06: increase ativan to 2 QID for catatonia. CXR to R/O pneumonia. swallow eval for food safety. otherwise continue current mgmt. 01/07: no change in presentation. per swallow eval at risk of aspiration will need modified diet (ordered). CXR not showing pneumonia. c/o sedation, will continue ativan at current dose. encouraging ECT. 01/08 continue same treatment, we will do referral for ECT. 01/09 continue same treatment, we are going to try to invoke healthcare proxy, we are filing for Section 7 and 8 Reason for continued inpatient stay Substantial Risk for: inability to function, rapid decompensation and med/psych decompensation Time Spent With Patient Time: Total time managing care of this patient today __20__ minutes.
[2024-01-10 20:00] VITALS: BP 147/77; PULSE 77; RESP 17; TEMP 36.1; O2SAT 98
[2024-01-10] MEDS: cloZAPine 100 MG TABLET 300 MG PO (20:53)
[2024-01-10] MEDS: Tamsulosin HCL 0.4 MG CAPSULE PO (20:54)
[2024-01-10] MEDS: Sennosides 8.6 MG TABLET 17.2 MG PO (20:54)
[2024-01-10] MEDS: ARIPiprazole 5 MG TABLET PO (20:54)
[2024-01-10] MEDS: traZODone HCL 50 MG TABLET PO (20:54)
[2024-01-11] MEDS: Omeprazole 20 MG CAPSULE.DR PO (05:56)
[2024-01-11 08:00] VITALS: BP 130/80; PULSE 80; RESP 16; TEMP 36.4; O2SAT 95
[2024-01-11] MEDS: Docusate Sodium 100 MG CAPSULE 200 MG PO ×2 (09:05→20:48)
[2024-01-11] MEDS: metFORMIN HCl ER 500 MG TAB.ER.24H PO (09:06)
[2024-01-11] MEDS: LORazepam 1 MG TABLET 2 MG PO ×4 (09:06→20:49)
[2024-01-11] MEDS: Sertraline HCL 100 MG TABLET PO ×2 (09:29→20:48)
[2024-01-11] MEDS: polyethylene glycoL 3350 17 GM POWD.PACK PO (09:37)
[2024-01-11] MEDS: Milk of Magnesia 30 ML ORAL.SUSP PO (12:48)
--- NOTE | 2024-01-11 12:48 | MHC.SL.SWA ---
Speech Pathologist Impression: Risk of Aspiration Due to: Reduced Cognition Dysphasia Diet Status: Continue Regular Solids upgrade to thin liquids. DC Speech service. Liquid Consistency and Strategies for Safe Swallow: Liquid Intake Recommendation: Thin Liquid Intake Strategies: Small Sips Solid Food Consistency: Dietary Recommendations: Regular Additional Modifications to Solid Foods: Patient seen for bedside swallow. Coughing on thin liquids. Tendency to take impulsive sips and pack mouth full of food. Recommend REGULAR texture solids and NECTAR THICK liquids, pills WHOLE in PUREE. Patient will need 1:1 supervision with PO intake, cues for patient to take small, individual bites/sips. Oral Medication Intake: Whole with Puree Please contact the pharmacy regarding appropriate crushable or liquid drug formulations that are available whenever modified delivery is recommended. Compensatory Strategies and Precautions to be Taken for Safe Swallow: Sitting Upright (90 deg) Liquids from Cup Small Bites and Sips Rate of Ingestion Change Supervision While Eating and Drinking for Safe Swallow: Total Supervision (1:1) Foods to Avoid: Mixed consistencies Swallowing Recommended Treatments: Base of Tongue Exercises Compens. Strategy Educat. Recommendation for Speech: Inpatient Speech Therapy Comment: Patient seen at lunch today, with tray arriving without liquids. OUTREACH COUNSELOR supplied cup of water with ice and NT apple juice for trials of liquids during lunch. TABLE GAMES SUPERVISOR provided patient with plastic knife, as fish was whole, needed cutting. Patient noted to be somewhat clumsy with cutlery, sometimes missing food, or using utensil upside down. However he made good independent progress through his meal. On request, patient took sip of liquid from cup, evidencing mild delay of swallow (absent swallow trigger) but no clinical signs of aspiration. Patient was also very tentative with raising cup to mouth, OUTREACH COUNSELOR provided straw. When patient independently drank water with straw, produced a timely swallow, no clinical signs of aspiration. Recommend UPGRADE liquids to THIN, continue on regular diet. As patient is on least restrictive diet, evidencing improved mentation, recommend DC speech at this time. Please re-contact if additional concerns arise. Frequency/Duration: M-F PRN Date Range for Service Req: Timeline to reassess: Road Crossing Guard Clinican/Clinical Fellow: No Supervisory Statement: I have reviewed and agree with the student/clinical fellow's documentation: N/A Speech Language Pathologist: Vicki Jane M.A., [facility]-OUTREACH COUNSELOR
--- NOTE | 2024-01-11 15:59 | P.PNPSI_ITS ---
Subjective Subjective Date of Service: 01/11/24 Reason For Visit: catatonia Subjective Notes: Conditional Voluntary Interim History: The nursing staff reported the patient had being isolative, yesterday he took a shower. The foster care social worker is trying to call the CHD worker and get more collateral information. On interview the patient was nonsensical at times, internally preoccupied. Mental Status Exam Mental Status Exam Patient Appearance: Appropriate Patient Orientation: Person and Situation Level of Consciousness: Awake and Appropriate Patient Behavior: Guarded and Passive Mood Description: Withdrawn Affect Description: Constricted Patient Cognition Impaired: Yes Ability to Follow Directions: Good Speech Pattern: Clear Hallucinations: None Delusions: Not Present Thought Process: Distracted and Slowed Thinking Thought Content: positive for [place] and positive for Poverty of Content Judgement: Fair Diagnostics Vital Signs (24Hr): Vital Signs - 24 hr 01/10/24 20:00 01/11/24 08:00 Temperature 97 F 97.6 F Pulse Rate 77 80 Respiratory Rate 17 16 Blood Pressure 147/77 H 130/80 Pulse Oximetry 98 95 Oxygen Delivery Method Room Air Room Air BMI result Body Mass Index 30.3 Labs 01/05/24 11:49 01/07/24 07:36 Imaging Radiology Impressions: ITS Impressions Chest X-Ray 01/07/24 13:27 IMPRESSION: Bronchial wall thickening may be infectious and/or inflammatory in etiology. Electronically signed by: Marianna Torres MD 01/07/2024 03:31 PM EDT RP Medications Medications Current Medications Acetaminophen (Acetaminophen 325 Mg Tablet) 650 mg PO Q6H PRN PRN Reason: Headache/Pain Mild Scale (1-3) Al Hydroxide/Mg Hydroxide (Magnesium Hydrox/Alum Hydrox 30 Ml Oral.Susp) 30 ml PO Q6H PRN PRN Reason: Heartburn/Nausea Aripiprazole (Aripiprazole 5 Mg Tablet) 5 mg PO BEDTIME KRISTIN Last Admin: 01/10/24 20:54 Dose: 5 mg Clozapine (Clozapine 100 Mg Tablet) 300 mg PO BEDTIME KRISTIN Last Admin: 01/10/24 20:53 Dose: 300 mg Docusate Sodium (Docusate Sodium 100 Mg Capsule) 200 mg PO BID KRISTIN Last Admin: 01/11/24 09:05 Dose: 200 mg Hydroxyzine HCl (Hydroxyzine Hcl 25 Mg Tablet) 25 mg PO Q6H PRN PRN Reason: Anxiety [place] Carbonate ([place] Carbonate 300 Mg Capsule) 300 mg PO BID [facility] Last Admin: 01/06/24 09:30 Dose: 300 mg Lorazepam (Lorazepam 1 Mg Tablet) 2 mg PO QID [facility] Last Admin: 01/11/24 12:47 Dose: 2 mg Magnesium Hydroxide (Milk Of Magnesia 30 Ml Oral.Susp) 30 ml PO DAILY PRN PRN Reason: Constipation Last Admin: 01/11/24 12:48 Dose: 30 ml Metformin HCl (Metformin Hcl Er 500 Mg Tab.Er.24h) 500 mg PO DAILY [facility] Last Admin: 01/11/24 09:06 Dose: 500 mg Omeprazole (Omeprazole 20 Mg Capsule.Dr) 20 mg PO DAILY@0630 [facility] Last Admin: 01/11/24 05:56 Dose: 20 mg Polyethylene Glycol (Polyethylene Glycol 3350 17 Gm Powd.Pack) 17 gm PO DAILY [facility] Last Admin: 01/11/24 09:37 Dose: 17 gm Senna (Sennosides 8.6 Mg Tablet) 17.2 mg PO BEDTIME [facility] Last Admin: 01/10/24 20:54 Dose: 17.2 mg Sertraline HCl (Sertraline Hcl 100 Mg Tablet) 100 mg PO BID [facility] Last Admin: 01/11/24 09:29 Dose: 100 mg Tamsulosin HCl (Tamsulosin Hcl 0.4 Mg Capsule) 0.4 mg PO BEDTIME [facility] Last Admin: 01/10/24 20:54 Dose: 0.4 mg Trazodone HCl (Trazodone Hcl 50 Mg Tablet) 50 mg PO BEDTIME MRX1 PRN PRN Reason: Insomnia Last Admin: 01/10/24 20:54 Dose: 50 mg Allergies Allergies Allergy/AdvReac Type Severity Reaction Status Date / Time No Known Allergies [NKA] Allergy Unknown NONE Verified 01/05/24 11:31 Assessment & Plan Assessment & Plan (1) Catatonia: Status: Acute Code(s): F06.1 - Catatonic disorder due to known physiological condition (2) Schizoaffective disorder, depressive type: Status: Acute Code(s): F25.1 - Schizoaffective disorder, depressive type (3) Essential (primary) hypertension: Status: Acute Code(s): I10 - Essential (primary) hypertension (4) Diabetes mellitus: Qualifiers: Diabetes mellitus type: type 2 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 add ativan 2 TID. attempt to obtain consent for ECT, as ECT has historically been most effective Tx for this pt's catatonia. supportive care. 01/06: increase ativan to 2 QID for catatonia. CXR to R/O pneumonia. swallow eval for food safety. otherwise continue current mgmt. 01/07: no change in presentation. per swallow eval at risk of aspiration will need modified diet (ordered). CXR not showing pneumonia. c/o sedation, will continue ativan at current dose. encouraging ECT. 01/08 continue same treatment, we will do referral for ECT. 01/09 continue same treatment, we are going to try to invoke healthcare proxy, we are filing for Section 7 and 8 01/10 we filed for Section 7 and 8, continue with same treatment. We will try to gather more collateral information Reason for continued inpatient stay Substantial Risk for: inability to function, rapid decompensation and med/psych decompensation Time Spent With Patient Time: Total time managing care of this patient today __20__ minutes.
[2024-01-11 20:00] VITALS: BP 126/75; PULSE 69; RESP 16; TEMP 36.5; O2SAT 97
[2024-01-11] MEDS: ARIPiprazole 5 MG TABLET PO (20:48)
[2024-01-11] MEDS: Tamsulosin HCL 0.4 MG CAPSULE PO (20:48)
[2024-01-11] MEDS: Sennosides 8.6 MG TABLET 17.2 MG PO (20:49)
[2024-01-11] MEDS: cloZAPine 100 MG TABLET 300 MG PO (20:49)
[2024-01-12] MEDS: Omeprazole 20 MG CAPSULE.DR PO (06:25)
[2024-01-12 08:31] VITALS: BP 142/72; PULSE 81; RESP 20; TEMP 35.9; O2SAT 96
[2024-01-12] MEDS: polyethylene glycoL 3350 17 GM POWD.PACK PO (08:33)
[2024-01-12] MEDS: metFORMIN HCl ER 500 MG TAB.ER.24H PO (08:33)
[2024-01-12] MEDS: Docusate Sodium 100 MG CAPSULE 200 MG PO ×2 (08:33→20:17)
[2024-01-12] MEDS: Sertraline HCL 100 MG TABLET PO ×2 (08:33→20:17)
[2024-01-12] MEDS: LORazepam 1 MG TABLET 2 MG PO ×3 (08:33→20:17)
[2024-01-12] MEDS: Acetaminophen 325 MG TABLET 650 MG PO (09:03)
[2024-01-12 09:07] LABS: Neut%MD 70.4 %; Neutrophils Absolute Auto 4.9 x10*3/uL (2.0-8.3); WBCANC 6.9 X10*3/uL
--- NOTE | 2024-01-12 13:58 | HO.PSYCHPN ---
Subjective Subjective Date of Service: 01/12/24 Reason For Visit: catatonia Subjective Notes: Section 7 and Section 8 Interim History: The nursing staff reported the patient had been visible in the unit mostly in the kitchen a little more responsive. He slept 8 hours. The social media content manager reported yesterday was nonsensical ambulating with help. Today interview the patient was nonsensical very sleepy. We are lowering the lorazepam to 2 mg p.o. t.i.d.. Mental Status Exam Mental Status Exam Patient Appearance: Well Grooomed and Appropriate Patient Orientation: Person and Situation Level of Consciousness: Awake and Appropriate Patient Behavior: Guarded and Passive Mood Description: Withdrawn Affect Description: Blunted Patient Cognition Impaired: Yes Ability to Follow Directions: Good Speech Pattern: No Speech Hallucinations: None Delusions: Present Thought Process: Distracted Thought Content: positive for Poverty of Content and positive for Thought Blocking Judgement: Poor Diagnostics Vital Signs (24Hr): Vital Signs - 24 hr 01/11/24 20:00 01/12/24 08:31 Temperature 97.7 F 96.7 F L Pulse Rate 69 81 Respiratory Rate 16 20 Blood Pressure 126/75 142/72 H Pulse Oximetry 97 96 Oxygen Delivery Method Room Air Room Air BMI result Body Mass Index 30.3 Labs 01/05/24 11:49 01/07/24 07:36 Labs: Laboratory Results - last 48 hr 01/12/24 08:25 Absolute Neuts (auto) 4.9 Imaging Radiology Impressions: ITS Impressions Chest X-Ray 01/07/24 13:27 IMPRESSION: Bronchial wall thickening may be infectious and/or inflammatory in etiology. Electronically signed by: Marianna Torres MD 01/07/2024 03:31 PM EDT Medications Medications Current Medications Acetaminophen (Acetaminophen 325 Mg Tablet) 650 mg PO Q6H PRN PRN Reason: Headache/Pain Mild Scale (1-3) Last Admin: 01/12/24 09:03 Dose: 650 mg Al Hydroxide/Mg Hydroxide (Magnesium Hydrox/Alum Hydrox 30 Ml Oral.Susp) 30 ml PO Q6H PRN PRN Reason: Heartburn/Nausea Aripiprazole (Aripiprazole 5 Mg Tablet) 5 mg PO BEDTIME KRISTIN Last Admin: 01/11/24 20:48 Dose: 5 mg Clozapine (Clozapine 100 Mg Tablet) 300 mg PO BEDTIME KRISTIN Last Admin: 01/11/24 20:49 Dose: 300 mg Docusate Sodium (Docusate Sodium 100 Mg Capsule) 200 mg PO BID [facility] Last Admin: 01/12/24 08:33 Dose: 200 mg Hydroxyzine HCl (Hydroxyzine Hcl 25 Mg Tablet) 25 mg PO Q6H PRN PRN Reason: Anxiety [place] Carbonate ([place] Carbonate 300 Mg Capsule) 300 mg PO BID [facility] Last Admin: 01/06/24 09:30 Dose: 300 mg Lorazepam (Lorazepam 1 Mg Tablet) 2 mg PO TID [facility] Magnesium Hydroxide (Milk Of Magnesia 30 Ml Oral.Susp) 30 ml PO DAILY PRN PRN Reason: Constipation Last Admin: 01/11/24 12:48 Dose: 30 ml Metformin HCl (Metformin Hcl Er 500 Mg Tab.Er.24h) 500 mg PO DAILY [facility] Last Admin: 01/12/24 08:33 Dose: 500 mg Omeprazole (Omeprazole 20 Mg Capsule.Dr) 20 mg PO DAILY@0630 [facility] Last Admin: 01/12/24 06:25 Dose: 20 mg Polyethylene Glycol (Polyethylene Glycol 3350 17 Gm Powd.Pack) 17 gm PO DAILY [facility] Last Admin: 01/12/24 08:33 Dose: 17 gm Senna (Sennosides 8.6 Mg Tablet) 17.2 mg PO BEDTIME [facility] Last Admin: 01/11/24 20:49 Dose: 17.2 mg Sertraline HCl (Sertraline Hcl 100 Mg Tablet) 100 mg PO BID [facility] Last Admin: 01/12/24 08:33 Dose: 100 mg Tamsulosin HCl (Tamsulosin Hcl 0.4 Mg Capsule) 0.4 mg PO BEDTIME [facility] Last Admin: 01/11/24 20:48 Dose: 0.4 mg Trazodone HCl (Trazodone Hcl 50 Mg Tablet) 50 mg PO BEDTIME MRX1 PRN PRN Reason: Insomnia Last Admin: 01/10/24 20:54 Dose: 50 mg Allergies Allergies Allergy/AdvReac Type Severity Reaction Status Date / Time No Known Allergies [NKA] Allergy Unknown NONE Verified 01/05/24 11:31 Assessment & Plan Assessment & Plan (1) Catatonia: Status: Acute Code(s): F06.1 - Catatonic disorder due to known physiological condition (2) Schizoaffective disorder, depressive type: Status: Acute Code(s): F25.1 - Schizoaffective disorder, depressive type (3) Essential (primary) hypertension: Status: Acute Code(s): I10 - Essential (primary) hypertension (4) Diabetes mellitus: Qualifiers: Diabetes mellitus complication status: with hyperglycemia Diabetes mellitus alf insulin use: without alf use Diabetes mellitus type: type 2 Qualified Code(s): E11.65 - Type 2 diabetes mellitus with hyperglycemia Status: Acute Code(s): E11.9 - Type 2 diabetes mellitus without complications (5) Sleep apnea: Status: Acute Code(s): G47.30 - Sleep apnea, unspecified Plan 01/05: continue home meds. add ativan 2 TID. attempt to obtain consent for ECT, as ECT has historically been most effective Tx for this pt's catatonia. supportive care. 01/06: increase ativan to 2 QID for catatonia. CXR to R/O pneumonia. swallow eval for food safety. otherwise continue current mgmt. 01/07: no change in presentation. per swallow eval at risk of aspiration will need modified diet (ordered). CXR not showing pneumonia. c/o sedation, will continue ativan at current dose. encouraging ECT. 01/08 continue same treatment, we will do referral for ECT. 01/09 continue same treatment, we are going to try to invoke healthcare proxy, we are filing for Section 7 and 8 01/10 we filed for Section 7 and 8, continue with same treatment. We will try to gather more collateral information. 01/11 we are lowering Ativan to 2 mg p.o. t.i.d. since he was over-sedated today in the morning Reason for continued inpatient stay Substantial Risk for: inability to function, rapid decompensation and med/psych decompensation Time Spent With Patient Time: Total time managing care of this patient today __20__ minutes.
[2024-01-12 20:00] VITALS: BP 131/64; PULSE 75; RESP 20; TEMP 36.2; O2SAT 96
[2024-01-12] MEDS: cloZAPine 100 MG TABLET 300 MG PO (20:17)
[2024-01-12] MEDS: Sennosides 8.6 MG TABLET 17.2 MG PO (20:17)
[2024-01-12] MEDS: ARIPiprazole 5 MG TABLET PO (20:18)
[2024-01-12] MEDS: Tamsulosin HCL 0.4 MG CAPSULE PO (20:18)
[2024-01-13] MEDS: Omeprazole 20 MG CAPSULE.DR PO (06:08)
--- NOTE | 2024-01-13 06:46 | P.PNPSI_ITS ---
Subjective Subjective Date of Service: 01/13/24 Reason For Visit: catatonia Subjective Notes: Section 7 and Section 8 Interim History: The nursing staff reported the patient remains most of the time isolative with minimal interaction. He looks catatonic but the team reported that he had been more responsive. On interview the patient was ambulatory but still catatonic. We lowered lorazepam yesterday due to over-sedation. Mental Status Exam Mental Status Exam Patient Appearance: Appropriate and Unkempt Patient Orientation: Person and Situation Level of Consciousness: Awake Patient Behavior: Guarded and Passive Mood Description: Withdrawn Affect Description: Blunted Patient Cognition Impaired: Yes Ability to Follow Directions: Fair Speech Pattern: Impoverished Thought Process: Illogical Thought Content: positive for [place], positive for Poverty of Content and positive for Disorganized Judgement: Poor Diagnostics Vital Signs (24Hr): Vital Signs - 24 hr 01/12/24 08:31 01/12/24 20:00 Temperature 96.7 F L 97.1 F Pulse Rate 81 75 Respiratory Rate 20 20 Blood Pressure 142/72 H 131/64 Pulse Oximetry 96 96 Oxygen Delivery Method Room Air Room Air BMI result Body Mass Index 30.3 Labs 01/05/24 11:49 01/07/24 07:36 Labs: Laboratory Results - last 48 hr 01/12/24 08:25 Absolute Neuts (auto) 4.9 Imaging Radiology Impressions: ITS Impressions Chest X-Ray 01/07/24 13:27 IMPRESSION: Bronchial wall thickening may be infectious and/or inflammatory in etiology. Electronically signed by: Marianna Torres MD 01/07/2024 03:31 PM EDT Medications Medications Current Medications Acetaminophen (Acetaminophen 325 Mg Tablet) 650 mg PO Q6H PRN PRN Reason: Headache/Pain Mild Scale (1-3) Last Admin: 01/12/24 09:03 Dose: 650 mg Al Hydroxide/Mg Hydroxide (Magnesium Hydrox/Alum Hydrox 30 Ml Oral.Susp) 30 ml PO Q6H PRN PRN Reason: Heartburn/Nausea Aripiprazole (Aripiprazole 5 Mg Tablet) 5 mg PO BEDTIME KRISTIN Last Admin: 01/12/24 20:18 Dose: 5 mg Clozapine (Clozapine 100 Mg Tablet) 300 mg PO BEDTIME KRISTIN Last Admin: 01/12/24 20:17 Dose: 300 mg Docusate Sodium (Docusate Sodium 100 Mg Capsule) 200 mg PO BID [facility] Last Admin: 01/12/24 20:17 Dose: 200 mg Hydroxyzine HCl (Hydroxyzine Hcl 25 Mg Tablet) 25 mg PO Q6H PRN PRN Reason: Anxiety [place] Carbonate ([place] Carbonate 300 Mg Capsule) 300 mg PO BID [facility] Last Admin: 01/06/24 09:30 Dose: 300 mg Lorazepam (Lorazepam 1 Mg Tablet) 2 mg PO TID [facility] Last Admin: 01/12/24 20:17 Dose: 2 mg Magnesium Hydroxide (Milk Of Magnesia 30 Ml Oral.Susp) 30 ml PO DAILY PRN PRN Reason: Constipation Last Admin: 01/11/24 12:48 Dose: 30 ml Metformin HCl (Metformin Hcl Er 500 Mg Tab.Er.24h) 500 mg PO DAILY [facility] Last Admin: 01/12/24 08:33 Dose: 500 mg Omeprazole (Omeprazole 20 Mg Capsule.Dr) 20 mg PO DAILY@0630 [facility] Last Admin: 01/13/24 06:08 Dose: 20 mg Polyethylene Glycol (Polyethylene Glycol 3350 17 Gm Powd.Pack) 17 gm PO DAILY [facility] Last Admin: 01/12/24 08:33 Dose: 17 gm Senna (Sennosides 8.6 Mg Tablet) 17.2 mg PO BEDTIME [facility] Last Admin: 01/12/24 20:17 Dose: 17.2 mg Sertraline HCl (Sertraline Hcl 100 Mg Tablet) 100 mg PO BID [facility] Last Admin: 01/12/24 20:17 Dose: 100 mg Tamsulosin HCl (Tamsulosin Hcl 0.4 Mg Capsule) 0.4 mg PO BEDTIME [facility] Last Admin: 01/12/24 20:18 Dose: 0.4 mg Trazodone HCl (Trazodone Hcl 50 Mg Tablet) 50 mg PO BEDTIME MRX1 PRN PRN Reason: Insomnia Last Admin: 01/10/24 20:54 Dose: 50 mg Allergies Allergies Allergy/AdvReac Type Severity Reaction Status Date / Time No Known Allergies [NKA] Allergy Unknown NONE Verified 01/05/24 11:31 Assessment & Plan Assessment & Plan (1) Catatonia: Status: Acute Code(s): F06.1 - Catatonic disorder due to known physiological condition (2) Schizoaffective disorder, depressive type: Status: Acute Code(s): F25.1 - Schizoaffective disorder, depressive type (3) Essential (primary) hypertension: Status: Acute Code(s): I10 - Essential (primary) hypertension (4) Diabetes mellitus: Qualifiers: Diabetes mellitus complication status: with hyperglycemia Diabetes mellitus mcc insulin use: without mcc use Diabetes mellitus type: t ype 2 Qualified Code(s): E11.65 - Type 2 diabetes mellitus with hyperglycemia Status: Acute Code(s): E11.9 - Type 2 diabetes mellitus without complications (5) Sleep apnea: Status: Acute Code(s): G47.30 - Sleep apnea, unspecified Plan 01/05: continue home meds. add ativan 2 TID. attempt to obtain consent for ECT, as ECT has historically been most effective Tx for this pt's catatonia. supportive care. 01/06: increase ativan to 2 QID for catatonia. CXR to R/O pneumonia. swallow eval for food safety. otherwise continue current mgmt. 01/07: no change in presentation. per swallow eval at risk of aspiration will need modified diet (ordered). CXR not showing pneumonia. c/o sedation, will continue ativan at current dose. encouraging ECT. 01/08 continue same treatment, we will do referral for ECT. 01/09 continue same treatment, we are going to try to invoke healthcare proxy, we are filing for Section 7 and 8 01/10 we filed for Section 7 and 8, continue with same treatment. We will try to gather more collateral information. 01/11 we are lowering Ativan to 2 mg p.o. t.i.d. since he was over-sedated today in the morning. 01/12 continue same treatment Reason for continued inpatient stay Substantial Risk for: inability to function, rapid decompensation and med/psych decompensation Time Spent With Patient Time: Total time managing care of this patient today ___20_ minutes.
[2024-01-13 08:00] VITALS: BP 127/76; PULSE 76; RESP 16; TEMP 36.1; O2SAT 96
[2024-01-13] MEDS: Docusate Sodium 100 MG CAPSULE 200 MG PO ×2 (08:47→20:41)
[2024-01-13] MEDS: LORazepam 1 MG TABLET 2 MG PO ×3 (08:47→20:41)
[2024-01-13] MEDS: metFORMIN HCl ER 500 MG TAB.ER.24H PO (08:47)
[2024-01-13] MEDS: Sertraline HCL 100 MG TABLET PO ×2 (08:47→20:41)
[2024-01-13] MEDS: polyethylene glycoL 3350 17 GM POWD.PACK PO (08:48)
[2024-01-13 20:00] VITALS: BP 129/67; PULSE 61; RESP 18; TEMP 36.5; O2SAT 96
[2024-01-13] MEDS: Sennosides 8.6 MG TABLET 17.2 MG PO (20:41)
[2024-01-13] MEDS: cloZAPine 100 MG TABLET 300 MG PO (20:41)
[2024-01-13] MEDS: ARIPiprazole 5 MG TABLET PO (20:41)
[2024-01-13] MEDS: Tamsulosin HCL 0.4 MG CAPSULE PO (20:41)
[2024-01-14] MEDS: Omeprazole 20 MG CAPSULE.DR PO (05:30)
--- NOTE | 2024-01-14 06:35 | P.PNPSI_ITS ---
Subjective Subjective Date of Service: 01/14/24 Reason For Visit: catatonia Subjective Notes: Section 7, Section 8 and Section 12B Interim History: The nursing staff reported the patient had been isolative, responding only to direct questions. On interview the patient remains still catatonic. He slept 8 hours. Mental Status Exam Mental Status Exam Patient Appearance: Appropriate Patient Orientation: Person and Situation Level of Consciousness: Awake and Appropriate Patient Behavior: Guarded and Passive Mood Description: Withdrawn Affect Description: Constricted Patient Cognition Impaired: Yes Ability to Follow Directions: Good Speech Pattern: Clear Hallucinations: None Delusions: Paranoid Ideation Thought Process: Distracted and Slowed Thinking Thought Content: positive for [place], positive for Poverty of Content and positive for Thought Blocking Judgement: Poor Diagnostics Vital Signs (24Hr): Vital Signs - 24 hr 01/13/24 08:00 01/13/24 20:00 Temperature 97 F 97.7 F Pulse Rate 76 61 Respiratory Rate 16 18 Blood Pressure 127/76 129/67 Pulse Oximetry 96 96 Oxygen Delivery Method Room Air Room Air BMI result Body Mass Index 30.3 Labs 01/05/24 11:49 01/07/24 07:36 Labs: Laboratory Results - last 48 hr 01/12/24 08:25 Absolute Neuts (auto) 4.9 Imaging Radiology Impressions: ITS Impressions Chest X-Ray 01/07/24 13:27 IMPRESSION: Bronchial wall thickening may be infectious and/or inflammatory in etiology. Electronically signed by: Marianna Torres MD 01/07/2024 03:31 PM EDT Medications Medications Current Medications Acetaminophen (Acetaminophen 325 Mg Tablet) 650 mg PO Q6H PRN PRN Reason: Headache/Pain Mild Scale (1-3) Last Admin: 01/12/24 09:03 Dose: 650 mg Al Hydroxide/Mg Hydroxide (Magnesium Hydrox/Alum Hydrox 30 Ml Oral.Susp) 30 ml PO Q6H PRN PRN Reason: Heartburn/Nausea Aripiprazole (Aripiprazole 5 Mg Tablet) 5 mg PO BEDTIME KRISTIN Last Admin: 01/13/24 20:41 Dose: 5 mg Clozapine (Clozapine 100 Mg Tablet) 300 mg PO BEDTIME KRISTIN Last Admin: 01/13/24 20:41 Dose: 300 mg Docusate Sodium (Docusate Sodium 100 Mg Capsule) 200 mg PO BID KRISTIN Last Admin: 01/13/24 20:41 Dose: 200 mg Hydroxyzine HCl (Hydroxyzine Hcl 25 Mg Tablet) 25 mg PO Q6H PRN PRN Reason: Anxiety [place] Carbonate ([place] Carbonate 300 Mg Capsule) 300 mg PO BID [facility] Last Admin: 01/06/24 09:30 Dose: 300 mg Lorazepam (Lorazepam 1 Mg Tablet) 2 mg PO TID [facility] Last Admin: 01/13/24 20:41 Dose: 2 mg Magnesium Hydroxide (Milk Of Magnesia 30 Ml Oral.Susp) 30 ml PO DAILY PRN PRN Reason: Constipation Last Admin: 01/11/24 12:48 Dose: 30 ml Metformin HCl (Metformin Hcl Er 500 Mg Tab.Er.24h) 500 mg PO DAILY [facility] Last Admin: 01/13/24 08:47 Dose: 500 mg Omeprazole (Omeprazole 20 Mg Capsule.Dr) 20 mg PO DAILY@0630 [facility] Last Admin: 01/14/24 05:30 Dose: 20 mg Polyethylene Glycol (Polyethylene Glycol 3350 17 Gm Powd.Pack) 17 gm PO DAILY [facility] Last Admin: 01/13/24 08:48 Dose: 17 gm Senna (Sennosides 8.6 Mg Tablet) 17.2 mg PO BEDTIME [facility] Last Admin: 01/13/24 20:41 Dose: 17.2 mg Sertraline HCl (Sertraline Hcl 100 Mg Tablet) 100 mg PO BID [facility] Last Admin: 01/13/24 20:41 Dose: 100 mg Tamsulosin HCl (Tamsulosin Hcl 0.4 Mg Capsule) 0.4 mg PO BEDTIME [facility] Last Admin: 01/13/24 20:41 Dose: 0.4 mg Trazodone HCl (Trazodone Hcl 50 Mg Tablet) 50 mg PO BEDTIME MRX1 PRN PRN Reason: Insomnia Last Admin: 01/10/24 20:54 Dose: 50 mg Allergies Allergies Allergy/AdvReac Type Severity Reaction Status Date / Time No Known Allergies [NKA] Allergy Unknown NONE Verified 01/05/24 11:31 Assessment & Plan Assessment & Plan (1) Catatonia: Status: Acute Code(s): F06.1 - Catatonic disorder due to known physiological condition (2) Schizoaffective disorder, depressive type: Status: Acute Code(s): F25.1 - Schizoaffective disorder, depressive type (3) Essential (primary) hypertension: Status: Acute Code(s): I10 - Essential (primary) hypertension (4) Diabetes mellitus: Qualifiers: Diabetes mellitus complication status: with hyperglycemia Diabetes mellitus [facility] insulin use: without [facility] use Diabetes mellitus type: t ype 2 Qualified Code(s): E11.65 - Type 2 diabetes mellitus with hyperglycemia Status: Acute Code(s): E11.9 - Type 2 diabetes mellitus without complications (5) Sleep apnea: Status: Acute Code(s): G47.30 - Sleep apnea, unspecified Plan 01/05: continue home meds. add ativan 2 TID. attempt to obtain consent for ECT, as ECT has historically been most effective Tx for this pt's catatonia. supportive care. 01/06: increase ativan to 2 QID for catatonia. CXR to R/O pneumonia. swallow eval for food safety. otherwise continue current mgmt. 01/07: no change in presentation. per swallow eval at risk of aspiration will need modified diet (ordered). CXR not showing pneumonia. c/o sedation, will continue ativan at current dose. encouraging ECT. 01/08 continue same treatment, we will do referral for ECT. 01/09 continue same treatment, we are going to try to invoke healthcare proxy, we are filing for Section 7 and 8 01/10 we filed for Section 7 and 8, continue with same treatment. We will try to gather more collateral information. 01/11 we are lowering Ativan to 2 mg p.o. t.i.d. since he was over-sedated today in the morning. 01/12 continue same treatment. 01/13 continue same treatment. Reason for continued inpatient stay Substantial Risk for: inability to function, rapid decompensation and med/psych decompensation Time Spent With Patient Time: Total time managing care of this patient today __20__ minutes.
[2024-01-14 07:55] VITALS: BP 132/74; PULSE 78; RESP 18; TEMP 36.8; O2SAT 97
[2024-01-14] MEDS: polyethylene glycoL 3350 17 GM POWD.PACK PO (08:16)
[2024-01-14] MEDS: Sertraline HCL 100 MG TABLET PO ×2 (08:17→20:43)
[2024-01-14] MEDS: Docusate Sodium 100 MG CAPSULE 200 MG PO ×2 (08:17→20:43)
[2024-01-14] MEDS: Lithium Carbonate 300 MG CAPSULE PO ×2 (08:17→20:43)
[2024-01-14] MEDS: LORazepam 1 MG TABLET 2 MG PO ×3 (08:17→20:43)
[2024-01-14] MEDS: metFORMIN HCl ER 500 MG TAB.ER.24H PO (08:17)
[2024-01-14 08:56] LABS: Creatinine Clr Calc Pharmacy 58.8; Estimated Glomerular Filt Rate 46
[2024-01-14 20:00] VITALS: BP 121/56; PULSE 60; RESP 18; TEMP 36.4; O2SAT 97
[2024-01-14] MEDS: cloZAPine 100 MG TABLET 300 MG PO (20:43)
[2024-01-14] MEDS: Sennosides 8.6 MG TABLET 17.2 MG PO (20:43)
[2024-01-14] MEDS: ARIPiprazole 5 MG TABLET PO (20:43)
[2024-01-14] MEDS: Tamsulosin HCL 0.4 MG CAPSULE PO (20:43)
[2024-01-15] MEDS: Omeprazole 20 MG CAPSULE.DR PO (06:40)
[2024-01-15 08:00] VITALS: BP 107/75; RESP 16; TEMP 36.2; O2SAT 98
[2024-01-15] MEDS: Lithium Carbonate 300 MG CAPSULE PO ×2 (09:30→20:08)
[2024-01-15] MEDS: Sertraline HCL 100 MG TABLET PO ×2 (09:30→20:08)
[2024-01-15] MEDS: metFORMIN HCl ER 500 MG TAB.ER.24H PO (09:30)
[2024-01-15] MEDS: LORazepam 1 MG TABLET 2 MG PO ×3 (09:31→20:09)
--- NOTE | 2024-01-15 12:17 | HO.PSYCHPN ---
Subjective Subjective Date of Service: 01/15/24 Reason For Visit: catatonia Subjective Notes: Section 7 and Section 8 Interim History: The nursing staff reported the patient looks slightly better, with good appetite medication compliant. The social science professor reported they try to reach out the outreach service of [facility]. On interview the patient remains with thought blocking. Mental Status Exam Mental Status Exam Patient Appearance: Appropriate Patient Orientation: Person and Situation Level of Consciousness: Awake and Appropriate Patient Behavior: Guarded and Passive Mood Description: Withdrawn and Blunted Affect Description: Blunted Patient Cognition Impaired: Yes Ability to Follow Directions: Good Speech Pattern: Clear Hallucinations: None Delusions: Ideas of Reference Thought Process: Distracted and Slowed Thinking Thought Content: positive for [place] and positive for Thought Blocking Judgement: Poor Diagnostics Vital Signs (24Hr): Vital Signs - 24 hr 01/14/24 20:00 01/15/24 08:00 Temperature 97.6 F 97.1 F Pulse Rate 60 Respiratory Rate 18 16 Blood Pressure 121/56 L 107/75 Pulse Oximetry 97 98 Oxygen Delivery Method Room Air Room Air BMI result Body Mass Index 30.3 Labs 01/05/24 11:49 01/14/24 08:35 Labs: Laboratory Results - last 48 hr 01/14/24 08:35 Creatinine 1.55 H Estim Creat Clear Calc 58.8 Estimated GFR 46 Imaging Radiology Impressions: ITS Impressions Chest X-Ray 01/07/24 13:27 IMPRESSION: Bronchial wall thickening may be infectious and/or inflammatory in etiology. Electronically signed by: Marianna Torres MD 01/07/2024 03:31 PM EDT Medications Medications Current Medications Acetaminophen (Acetaminophen 325 Mg Tablet) 650 mg PO Q6H PRN PRN Reason: Headache/Pain Mild Scale (1-3) Last Admin: 01/12/24 09:03 Dose: 650 mg Al Hydroxide/Mg Hydroxide (Magnesium Hydrox/Alum Hydrox 30 Ml Oral.Susp) 30 ml PO Q6H PRN PRN Reason: Heartburn/Nausea Aripiprazole (Aripiprazole 5 Mg Tablet) 5 mg PO BEDTIME KRISTIN Last Admin: 01/14/24 20:43 Dose: 5 mg Clozapine (Clozapine 100 Mg Tablet) 300 mg PO BEDTIME KRISTIN Last Admin: 01/14/24 20:43 Dose: 300 mg Docusate Sodium (Docusate Sodium 100 Mg Capsule) 200 mg PO BID KRISTIN Last Admin: 01/15/24 09:30 Dose: Not Given Hydroxyzine HCl (Hydroxyzine Hcl 25 Mg Tablet) 25 mg PO Q6H PRN PRN Reason: Anxiety [place] Carbonate ([place] Carbonate 300 Mg Capsule) 300 mg PO BID [facility] Last Admin: 01/15/24 09:30 Dose: 300 mg Lorazepam (Lorazepam 1 Mg Tablet) 2 mg PO TID [facility] Last Admin: 01/15/24 09:31 Dose: 2 mg Magnesium Hydroxide (Milk Of Magnesia 30 Ml Oral.Susp) 30 ml PO DAILY PRN PRN Reason: Constipation Last Admin: 01/11/24 12:48 Dose: 30 ml Metformin HCl (Metformin Hcl Er 500 Mg Tab.Er.24h) 500 mg PO DAILY [facility] Last Admin: 01/15/24 09:30 Dose: 500 mg Omeprazole (Omeprazole 20 Mg Capsule.Dr) 20 mg PO DAILY@0630 [facility] Last Admin: 01/15/24 06:40 Dose: 20 mg Polyethylene Glycol (Polyethylene Glycol 3350 17 Gm Powd.Pack) 17 gm PO DAILY [facility] Last Admin: 01/15/24 09:31 Dose: Not Given Senna (Sennosides 8.6 Mg Tablet) 17.2 mg PO BEDTIME [facility] Last Admin: 01/14/24 20:43 Dose: 17.2 mg Sertraline HCl (Sertraline Hcl 100 Mg Tablet) 100 mg PO BID [facility] Last Admin: 01/15/24 09:30 Dose: 100 mg Tamsulosin HCl (Tamsulosin Hcl 0.4 Mg Capsule) 0.4 mg PO BEDTIME [facility] Last Admin: 01/14/24 20:43 Dose: 0.4 mg Trazodone HCl (Trazodone Hcl 50 Mg Tablet) 50 mg PO BEDTIME MRX1 PRN PRN Reason: Insomnia Last Admin: 01/10/24 20:54 Dose: 50 mg Allergies Allergies Allergy/AdvReac Type Severity Reaction Status Date / Time No Known Allergies [NKA] Allergy Unknown NONE Verified 01/05/24 11:31 Assessment & Plan Assessment & Plan (1) Catatonia: Status: Acute Code(s): F06.1 - Catatonic disorder due to known physiological condition (2) Schizoaffective disorder, depressive type: Status: Acute Code(s): F25.1 - Schizoaffective disorder, depressive type (3) Essential (primary) hypertension: Status: Acute Code(s): I10 - Essential (primary) hypertension (4) Diabetes mellitus: Qualifiers: Diabetes mellitus complication status: with hyperglycemia 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 add ativan 2 TID. attempt to obtain consent for ECT, as ECT has historically been most effective Tx for this pt's catatonia. supportive care. 01/06: increase ativan to 2 QID for catatonia. CXR to R/O pneumonia. swallow eval for food safety. otherwise continue current mgmt. 01/07: no change in presentation. per swallow eval at risk of aspiration will need modified diet (ordered). CXR not showing pneumonia. c/o sedation, will continue ativan at current dose. encouraging ECT. 01/08 continue same treatment, we will do referral for ECT. 01/09 continue same treatment, we are going to try to invoke healthcare proxy, we are filing for Section 7 and 8 01/10 we filed for Section 7 and 8, continue with same treatment. We will try to gather more collateral information. 01/11 we are lowering Ativan to 2 mg p.o. t.i.d. since he was over-sedated today in the morning. 01/12 continue same treatment. 01/13 continue same treatment. 01/14 continue same treatment, mild improvement Reason for continued inpatient stay Substantial Risk for: inability to function, rapid decompensation and med/psych decompensation Time Spent With Patient Time: Total time managing care of this patient today _20___ minutes.
[2024-01-15 20:00] VITALS: BP 124/60; PULSE 69; RESP 18; TEMP 36.7; O2SAT 95
[2024-01-15] MEDS: cloZAPine 100 MG TABLET 300 MG PO (20:07)
[2024-01-15] MEDS: ARIPiprazole 5 MG TABLET PO (20:08)
[2024-01-15] MEDS: Tamsulosin HCL 0.4 MG CAPSULE PO (20:08)
[2024-01-15] MEDS: Docusate Sodium 100 MG CAPSULE 200 MG PO (20:09)
[2024-01-15] MEDS: Sennosides 8.6 MG TABLET 17.2 MG PO (20:09)
[2024-01-16] MEDS: Omeprazole 20 MG CAPSULE.DR PO (06:02)
[2024-01-16 08:00] VITALS: BP 110/62; PULSE 66; RESP 20; TEMP 36.9; O2SAT 94
--- NOTE | 2024-01-16 08:47 | P.PNPSI_ITS ---
Subjective Subjective Reason For Visit: catatonia Diagnostics Vital Signs (24Hr): Vital Signs - 24 hr 01/15/24 20:00 Temperature 98.1 F Pulse Rate 69 Respiratory Rate 18 Blood Pressure 124/60 Pulse Oximetry 95 Oxygen Delivery Method Room Air BMI result Body Mass Index 30.3 Labs 01/05/24 11:49 01/14/24 08:35 Labs: Laboratory Results - last 48 hr 01/14/24 08:35 Creatinine 1.55 H Estim Creat Clear Calc 58.8 Estimated GFR 46 Imaging Radiology Impressions: ITS Impressions Chest X-Ray 01/07/24 13:27 IMPRESSION: Bronchial wall thickening may be infectious and/or inflammatory in etiology. Electronically signed by: Marianna Torres MD 01/07/2024 03:31 PM EDT RP Medications Medications Current Medications Acetaminophen (Acetaminophen 325 Mg Tablet) 650 mg PO Q6H PRN PRN Reason: Headache/Pain Mild Scale (1-3) Last Admin: 01/12/24 09:03 Dose: 650 mg Al Hydroxide/Mg Hydroxide (Magnesium Hydrox/Alum Hydrox 30 Ml Oral.Susp) 30 ml PO Q6H PRN PRN Reason: Heartburn/Nausea Aripiprazole (Aripiprazole 5 Mg Tablet) 5 mg PO BEDTIME [facility] Last Admin: 01/15/24 20:08 Dose: 5 mg Clozapine (Clozapine 100 Mg Tablet) 300 mg PO BEDTIME [facility]RI[facility] Last Admin: 01/15/24 20:07 Dose: 300 mg Docusate Sodium (Docusate Sodium 100 Mg Capsule) 200 mg PO BID [facility] Last Admin: 01/15/24 20:09 Dose: 200 mg Hydroxyzine HCl (Hydroxyzine Hcl 25 Mg Tablet) 25 mg PO Q6H PRN PRN Reason: Anxiety [place] Carbonate ([place] Carbonate 300 Mg Capsule) 300 mg PO BID [facility] Last Admin: 01/15/24 20:08 Dose: 300 mg Lorazepam (Lorazepam 1 Mg Tablet) 2 mg PO TID [facility] Last Admin: 01/15/24 20:09 Dose: 2 mg Magnesium Hydroxide (Milk Of Magnesia 30 Ml Oral.Susp) 30 ml PO DAILY PRN PRN Reason: Constipation Last Admin: 01/11/24 12:48 Dose: 30 ml Metformin HCl (Metformin Hcl Er 500 Mg Tab.Er.24h) 500 mg PO DAILY [facility]RISTIN Last Admin: 01/15/24 09:30 Dose: 500 mg Omeprazole (Omeprazole 20 Mg Capsule.Dr) 20 mg PO DAILY@0630 [facility] Last Admin: 01/16/24 06:02 Dose: 20 mg Polyethylene Glycol (Polyethylene Glycol 3350 17 Gm Powd.Pack) 17 gm PO DAILY [facility] Last Admin: 01/15/24 09:31 Dose: Not Given Senna (Sennosides 8.6 Mg Tablet) 17.2 mg PO BEDTIME [facility] Last Admin: 01/15/24 20:09 Dose: 17.2 mg Sertraline HCl (Sertraline Hcl 100 Mg Tablet) 100 mg PO BID [facility] Last Admin: 01/15/24 20:08 Dose: 100 mg Tamsulosin HCl (Tamsulosin Hcl 0.4 Mg Capsule) 0.4 mg PO BEDTIME [facility] Last Admin: 01/15/24 20:08 Dose: 0.4 mg Trazodone HCl (Trazodone Hcl 50 Mg Tablet) 50 mg PO BEDTIME MRX1 PRN PRN Reason: Insomnia Last Admin: 01/10/24 20:54 Dose: 50 mg Allergies Allergies Allergy/AdvReac Type Severity Reaction Status Date / Time No Known Allergies [NKA] Allergy Unknown NONE Verified 01/05/24 11:31 Assessment & Plan Assessment & Plan (1) Catatonia: Status: Acute Code(s): F06.1 - Catatonic disorder due to known physiological condition (2) Schizoaffective disorder, depressive type: Status: Acute Code(s): F25.1 - Schizoaffective disorder, depressive type (3) Essential (primary) hypertension: Status: Acute Code(s): I10 - Essential (primary) hypertension (4) Diabetes mellitus: Qualifiers: Diabetes mellitus type: type 2 Diabetes mellitus water quality specialist insulin use: without water quality specialist use Diabetes mellitus complication status: with hyperglycemia Qualified Code(s): E11.65 - Type 2 diabetes mellitus with hyperglycemia Status: Acute Code(s): E11.9 - Type 2 diabetes mellitus without complications (5) Sleep apnea: Status: Acute Code(s): G47.30 - Sleep apnea, unspecified Plan 01/05: continue home meds. add ativan 2 TID. attempt to obtain consent for ECT, as ECT has historically been most effective Tx for this pt's catatonia. supportive care. 01/06: increase ativan to 2 QID for catatonia. CXR to R/O pneumonia. swallow eval for food safety. otherwise continue current mgmt. 01/07: no change in presentation. per swallow eval at risk of aspiration will need modified diet (ordered). CXR not showing pneumonia. c/o sedation, will continue ativan at current dose. encouraging ECT. 01/08 continue same treatment, we will do referral for ECT. 01/09 continue same treatment, we are going to try to invoke healthcare proxy, we are filing for Section 7 and 8 01/10 we filed for Section 7 and 8, continue with same treatment. We will try to gather more collateral information. 01/11 we are lowering Ativan to 2 mg p.o. t.i.d. since he was over-sedated today in the morning. 01/12 continue same treatment. 01/13 continue same treatment. 01/14 continue same treatment, mild improvement Time Spent With Patient Time: Total time managing care of this patient today ____ minutes.
[2024-01-16] MEDS: metFORMIN HCl ER 500 MG TAB.ER.24H PO (10:01)
[2024-01-16] MEDS: Lithium Carbonate 300 MG CAPSULE PO ×2 (10:01→20:31)
[2024-01-16] MEDS: Sertraline HCL 100 MG TABLET PO ×2 (10:01→20:31)
[2024-01-16] MEDS: LORazepam 1 MG TABLET 2 MG PO ×3 (10:01→20:29)
[2024-01-16] MEDS: polyethylene glycoL 3350 17 GM POWD.PACK PO (10:02)
[2024-01-16] MEDS: Docusate Sodium 100 MG CAPSULE 200 MG PO ×2 (10:02→20:30)
--- NOTE | 2024-01-16 12:35 | HO.PSYCHPN ---
Subjective Subjective Date of Service: 01/16/24 Reason For Visit: catatonia Subjective Notes: Section 7 Healthcare Proxy: No Guardianship: No Interim History: Patient has been on clozapine sertraline and lorazepam for catatonia. Patient has a history of recurrent catatonia might benefit in the future from lithium for cyclic disorder. Patient has been taking in some food and fluids. Patient has had past treatment with ECT that was effective and past treatment with ECT that was not effective , Patient remains significantly psychomotor retarded he is awake speech quite delayed Mental Status Exam Mental Status Exam Patient Appearance: Appropriate Patient Orientation: Person and Situation Level of Consciousness: Awake, Appropriate and Combative Patient Behavior: Guarded and Passive Mood Description: Withdrawn and Blunted Affect Description: Blunted Patient Cognition Impaired: Yes Ability to Follow Directions: Good Speech Pattern: Clear Hallucinations: None Delusions: Ideas of Reference Thought Process: Distracted and Slowed Thinking Thought Content: positive for [place] and positive for Thought Blocking Judgement: Poor Diagnostics Vital Signs (24Hr): Vital Signs - 24 hr 01/15/24 20:00 01/16/24 08:00 Temperature 98.1 F 98.4 F Pulse Rate 69 66 Respiratory Rate 18 20 Blood Pressure 124/60 110/62 Pulse Oximetry 95 94 Oxygen Delivery Method Room Air Room Air BMI result Body Mass Index 30.3 Labs 01/05/24 11:49 01/14/24 08:35 Imaging Radiology Impressions: ITS Impressions Chest X-Ray 01/07/24 13:27 IMPRESSION: Bronchial wall thickening may be infectious and/or inflammatory in etiology. Electronically signed by: Marianna Torres MD 01/07/2024 03:31 PM EDT Medications Medications Current Medications Acetaminophen (Acetaminophen 325 Mg Tablet) 650 mg PO Q6H PRN PRN Reason: Headache/Pain Mild Scale (1-3) Last Admin: 01/12/24 09:03 Dose: 650 mg Al Hydroxide/Mg Hydroxide (Magnesium Hydrox/Alum Hydrox 30 Ml Oral.Susp) 30 ml PO Q6H PRN PRN Reason: Heartburn/Nausea Aripiprazole (Aripiprazole 5 Mg Tablet) 5 mg PO BEDTIME [facility] Last Admin: 01/15/24 20:08 Dose: 5 mg Clozapine (Clozapine 100 Mg Tablet) 300 mg PO BEDTIME [facility] Last Admin: 01/15/24 20:07 Dose: 300 mg Docusate Sodium (Docusate Sodium 100 Mg Capsule) 200 mg PO BID [facility] Last Admin: 01/16/24 10:02 Dose: 200 mg Hydroxyzine HCl (Hydroxyzine Hcl 25 Mg Tablet) 25 mg PO Q6H PRN PRN Reason: Anxiety [place] Carbonate ([place] Carbonate 300 Mg Capsule) 300 mg PO BID [facility] Last Admin: 01/16/24 10:01 Dose: 300 mg Lorazepam (Lorazepam 1 Mg Tablet) 2 mg PO TID [facility] Last Admin: 01/16/24 10:01 Dose: 2 mg Magnesium Hydroxide (Milk Of Magnesia 30 Ml Oral.Susp) 30 ml PO DAILY PRN PRN Reason: Constipation Last Admin: 01/11/24 12:48 Dose: 30 ml Metformin HCl (Metformin Hcl Er 500 Mg Tab.Er.24h) 500 mg PO DAILY [facility] Last Admin: 01/16/24 10:01 Dose: 500 mg Omeprazole (Omeprazole 20 Mg Capsule.Dr) 20 mg PO DAILY@0630 [facility] Last Admin: 01/16/24 06:02 Dose: 20 mg Polyethylene Glycol (Polyethylene Glycol 3350 17 Gm Powd.Pack) 17 gm PO DAILY [facility] Last Admin: 01/16/24 10:02 Dose: 17 gm Senna (Sennosides 8.6 Mg Tablet) 17.2 mg PO BEDTIME [facility] Last Admin: 01/15/24 20:09 Dose: 17.2 mg Sertraline HCl (Sertraline Hcl 100 Mg Tablet) 100 mg PO BID [facility] Last Admin: 01/16/24 10:01 Dose: 100 mg Tamsulosin HCl (Tamsulosin Hcl 0.4 Mg Capsule) 0.4 mg PO BEDTIME [facility] Last Admin: 01/15/24 20:08 Dose: 0.4 mg Trazodone HCl (Trazodone Hcl 50 Mg Tablet) 50 mg PO BEDTIME MRX1 PRN PRN Reason: Insomnia Last Admin: 01/10/24 20:54 Dose: 50 mg Allergies Allergies Allergy/AdvReac Type Severity Reaction Status Date / Time No Known Allergies [NKA] Allergy Unknown NONE Verified 01/05/24 11:31 Assessment & Plan Assessment & Plan (1) Catatonia: Status: Acute Code(s): F06.1 - Catatonic disorder due to known physiological condition (2) Schizoaffective disorder, depressive type: Status: Acute Code(s): F25.1 - Schizoaffective disorder, depressive type (3) Essential (primary) hypertension: Status: Acute Code(s): I10 - Essential (primary) hypertension (4) Diabetes mellitus: Qualifiers: Diabetes mellitus complication status: with hyperglycemia Diabetes mellitus fdc insulin use: 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 add ativan 2 TID. attempt to obtain consent for ECT, as ECT has historically been most effective Tx for this pt's catatonia. supportive care. 01/06: increase ativan to 2 QID for catatonia. CXR to R/O pneumonia. swallow eval for food safety. otherwise continue current mgmt. 01/07: no change in presentation. per swallow eval at risk of aspiration will need modified diet (ordered). CXR not showing pneumonia. c/o sedation, will continue ativan at current dose. encouraging ECT. 01/08 continue same treatment, we will do referral for ECT. 01/09 continue same treatment, we are going to try to invoke healthcare proxy, we are filing for Section 7 and 8 01/10 we filed for Section 7 and 8, continue with same treatment. We will try to gather more collateral information. 01/11 we are lowering Ativan to 2 mg p.o. t.i.d. since he was over-sedated today in the morning. 01/12 continue same treatment. 01/13 continue same treatment. 01/14 continue same treatment, mild improvement 01/16/2024 Continue plan of care check lab continue Ativan Reason for continued inpatient stay Substantial Risk for: inability to function, rapid decompensation and med/psych decompensation Time Spent With Patient Time: Total time managing care of this patient today ____ minutes.
--- NOTE | 2024-01-16 16:20 | PC.NURSE ---
Pt noted to have insp/exp rhonchi and congested weak cough upon waking this AM. O2 sats 94%-96%. Pt encouraged to C/DB and get up and ambulating. Once OOB and walking pt rechecked and lungs now CTA and no coughing noted. He denied sob or other complaint. no s/s physical distress noted. VS as noted. MD aware no POC's ordered on this diabetic patient.
[2024-01-16 18:48] LABS: Glucose, Whole Blood 88 mg/dL (60-115)
[2024-01-16 20:26] VITALS: BP 114/57; PULSE 66; RESP 17; TEMP 36.6; O2SAT 94
[2024-01-16] MEDS: cloZAPine 100 MG TABLET 300 MG PO (20:29)
[2024-01-16] MEDS: ARIPiprazole 5 MG TABLET PO (20:30)
[2024-01-16] MEDS: Sennosides 8.6 MG TABLET 17.2 MG PO (20:31)
[2024-01-16] MEDS: Tamsulosin HCL 0.4 MG CAPSULE PO (20:31)
[2024-01-17] MEDS: Omeprazole 20 MG CAPSULE.DR PO (05:53)
[2024-01-17 08:34] VITALS: BP 117/66; PULSE 66; RESP 18; TEMP 37.3; O2SAT 94
[2024-01-17] MEDS: metFORMIN HCl ER 500 MG TAB.ER.24H PO (08:36)
[2024-01-17] MEDS: Docusate Sodium 100 MG CAPSULE 200 MG PO ×2 (08:36→19:56)
[2024-01-17] MEDS: Sertraline HCL 100 MG TABLET PO ×2 (08:37→19:56)
[2024-01-17] MEDS: Lithium Carbonate 300 MG CAPSULE PO ×2 (08:37→19:57)
[2024-01-17] MEDS: LORazepam 1 MG TABLET 2 MG PO (08:37)
[2024-01-17 08:38] LABS: Estimated Average Glucose 103 mg/dL; Hemoglobin A1C 109.0097 umol/L; Hemoglobin A1c % 5.2 % (<6.0); Total Hemoglobin (HGBA1C) 3250.9729 umol/L
[2024-01-17] MEDS: polyethylene glycoL 3350 17 GM POWD.PACK PO (08:39)
[2024-01-17 08:43] LABS: Alanine Aminotransferase 12 U/L (0-40); Albumin Level 3.9 g/dL (3.5-5.0); Alkaline Phosphatase 66 U/L (39-117); Anion Gap 10 (12-20); Aspartate Amino Transferase 15 U/L (5-37); Bilirubin Total 0.4 mg/dL (0.0-1.0); Blood Urea Nitrogen 24 mg/dL (9-16); Calcium 9.4 mg/dL (8.4-10.2); Carbon Dioxide 29 mmol/L (22-29); Chloride 109 mmol/L (96-108); Creatinine Clr Calc Pharmacy 66.5; Estimated Glomerular Filt Rate 53; Glucose Fasting 90 mg/dL (60-99); Potassium 4.3 mmol/L (3.3-5.1); Sodium 144 mmol/L (135-145); Total Protein 6.6 g/dL (6.5-8.0)
[2024-01-17 08:58] LABS: TSH reflex Free T4 0.78 uIU/mL (0.32-4.0)
[2024-01-17 09:00] LABS: Lithium 0.65 mmol/L (0.60-1.20)
[2024-01-17] MEDS: LORazepam 1 MG TABLET PO ×2 (15:37→19:58)
--- NOTE | 2024-01-17 18:44 | P.PNPSI_ITS ---
Subjective Subjective Date of Service: 01/17/24 Reason For Visit: catatonia Subjective Notes: Section 7 Healthcare Proxy: No Guardianship: No Medical Problems Affecting Mental Status: No Interim History: The patient shows continued evidence of significant catatonia complicated by what appears to be over-sedation. He is somewhat obese and this complicates the situation. Has significant thought blocking nods yes when asked about depression was able to eat lunch. Minimal engagement needs encouragement to get out of bed Medication Compliance: Yes Side effects from medications: Yes Mental Status Exam Mental Status Exam Patient Appearance: Fatigued Patient Orientation: Person, Place and Situation Level of Consciousness: Drowsy, Sedated and Lethargic Patient Behavior: Guarded and Passive Mood Description: Withdrawn, Depressed and Blunted Affect Description: Constricted and Blunted Patient Cognition Impaired: Yes Ability to Follow Directions: Good Speech Pattern: Whisper, Delayed and Long Pauses Thought Process: Distracted and Slowed Thinking Thought Content: positive for [place] and positive for Thought Blocking Abnormal Motor Activity Signs and Symptoms: Psychomotor Retardation Judgement: Poor Judgement and Insight: Patient nods yes when asked about depression does not respond when asked about hallucinations difficult to arouse when seen Diagnostics Vital Signs (24Hr): Vital Signs - 24 hr 01/16/24 20:26 01/17/24 08:34 Temperature 97.8 F 99.1 F Pulse Rate 66 66 Respiratory Rate 17 18 Blood Pressure 114/57 L 117/66 Pulse Oximetry 94 94 Oxygen Delivery Method Room Air Room Air BMI result Body Mass Index 30.3 Labs 01/05/24 11:49 01/17/24 08:14 Labs: Laboratory Results - last 48 hr 01/16/24 01/17/24 10:15 08:14 Sodium 144 Potassium 4.3 Chloride 109 H Carbon Dioxide 29 Anion Gap 10 L BUN 24 H Creatinine 1.37 Estim Creat Clear Calc 66.5 Estimated GFR 53 POC Glucose 88 Fasting Glucose 90 Estimat Average Glucose 103 Hemoglobin A1c % 5.2 Calcium 9.4 Total Bilirubin 0.4 AST 15 ALT 12 Alkaline Phosphatase 66 Total Protein 6.6 Albumin 3.9 TSH 0.78 [place] 0.65 Imaging Radiology Impressions: ITS Impressions Chest X-Ray 01/07/24 13:27 IMPRESSION: Bronchial wall thickening may be infectious and/or inflammatory in etiology. Electronically signed by: Marianna Torres MD 01/07/2024 03:31 PM EDT RP Medications Medications Current Medications Acetaminophen (Acetaminophen 325 Mg Tablet) 650 mg PO Q6H PRN PRN Reason: Headache/Pain Mild Scale (1-3) Last Admin: 01/12/24 09:03 Dose: 650 mg Al Hydroxide/Mg Hydroxide (Magnesium Hydrox/Alum Hydrox 30 Ml Oral.Susp) 30 ml PO Q6H PRN PRN Reason: Heartburn/Nausea Aripiprazole (Aripiprazole 5 Mg Tablet) 5 mg PO BEDTIME [facility] Last Admin: 01/16/24 20:30 Dose: 5 mg Clozapine 200 mg/ Clozapine 50 (mg) 250 mg PO DAILY@1930 [facility] Docusate Sodium (Docusate Sodium 100 Mg Capsule) 200 mg PO BID [facility] Last Admin: 01/17/24 08:36 Dose: 200 mg Hydroxyzine HCl (Hydroxyzine Hcl 25 Mg Tablet) 25 mg PO Q6H PRN PRN Reason: Anxiety [place] Carbonate ([place] Carbonate 300 Mg Capsule) 300 mg PO BID [facility] Last Admin: 01/17/24 08:37 Dose: 300 mg Lorazepam (Lorazepam 1 Mg Tablet) 1 mg PO TID [facility] Last Admin: 01/17/24 15:37 Dose: 1 mg Magnesium Hydroxide (Milk Of Magnesia 30 Ml Oral.Susp) 30 ml PO DAILY PRN PRN Reason: Constipation Last Admin: 01/11/24 12:48 Dose: 30 ml Metformin HCl (Metformin Hcl Er 500 Mg Tab.Er.24h) 500 mg PO DAILY [facility] Last Admin: 01/17/24 08:36 Dose: 500 mg Omeprazole (Omeprazole 20 Mg Capsule.Dr) 20 mg PO DAILY@0630 [facility] Last Admin: 01/17/24 05:53 Dose: 20 mg Polyethylene Glycol (Polyethylene Glycol 3350 17 Gm Powd.Pack) 17 gm PO DAILY [facility] Last Admin: 01/17/24 08:39 Dose: 17 gm Senna (Sennosides 8.6 Mg Tablet) 17.2 mg PO BEDTIME [facility] Last Admin: 01/16/24 20:31 Dose: 17.2 mg Sertraline HCl (Sertraline Hcl 100 Mg Tablet) 100 mg PO BID [facility] Last Admin: 01/17/24 08:37 Dose: 100 mg Tamsulosin HCl (Tamsulosin Hcl 0.4 Mg Capsule) 0.4 mg PO BEDTIME [facility] Last Admin: 01/16/24 20:31 Dose: 0.4 mg Trazodone HCl (Trazodone Hcl 50 Mg Tablet) 50 mg PO BEDTIME MRX1 PRN PRN Reason: Insomnia Last Admin: 01/10/24 20:54 Dose: 50 mg Allergies Allergies Allergy/AdvReac Type Severity Reaction Status Date / Time No Known Allergies [NKA] Allergy Unknown NONE Verified 01/05/24 11:31 Assessment & Plan Assessment & Plan (1) Catatonia: Status: Acute Code(s): F06.1 - Catatonic disorder due to known physiological condition (2) Schizoaffective disorder, depressive type: Status: Acute Code(s): F25.1 - Schizoaffective disorder, depressive type (3) Essential (primary) hypertension: Status: Acute Code(s): I10 - Essential (primary) hypertension (4) Diabetes mellitus: Qualifiers: Diabetes mellitus complication status: with hyperglycemia Diabetes mellitus half-way insulin use: without half-way use Diabetes mellitus type: t ype 2 Qualified Code(s): E11.65 - Type 2 diabetes mellitus with hyperglycemia Status: Acute Code(s): E11.9 - Type 2 diabetes mellitus without complications (5) Sleep apnea: Status: Acute Code(s): G47.30 - Sleep apnea, unspecified Plan 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 Patient not tolerating combination of clozapine and lorazepam appears overly sedated lethargic remains blunted psychomotor retarded with catatonia. Will lower Ativan to 1 mg 3 times a day lower clozapine to 250 mg hopefully patient will be more alert and we can better tease out catatonia versus medication induced lethargy on top of that. The patient has had a complicated response in the past to ECT. Last year did seem to help him in some years past the patient did have a course of over 10 treatments that did not help with his catatonia and eventually responded to combination of clozapine and lorazepam. stop abilify If patient becomes more alert will try and see if he is able to possibly consent for ECT which he has done in the past there was a lot of negative feedback from a family member which had been difficult for the patient to deal with. There is a court hearing for treatment order and retention scheduled past records in responses extensively reviewed Patient educated on: diagnosis, medication risk/benefits and ECT Informed Consent: further education needed Reason for continued inpatient stay Substantial Risk for: inability to function, rapid decompensation and med/psych decompensation Time Spent With Patient Time: Total time managing care of this patient today __45__ minutes.
[2024-01-17] MEDS: Sennosides 8.6 MG TABLET 17.2 MG PO (19:54)
[2024-01-17] MEDS: cloZAPine 200 MG, cloZAPine 50 MG 250 MG PO (19:55)
[2024-01-17] MEDS: traZODone HCL 50 MG TABLET PO (19:56)
[2024-01-17] MEDS: ARIPiprazole 5 MG TABLET PO (19:57)
[2024-01-17] MEDS: Tamsulosin HCL 0.4 MG CAPSULE PO (19:58)
[2024-01-17 20:00] VITALS: BP 121/67; PULSE 62; RESP 16; TEMP 36.4; O2SAT 94
[2024-01-18] MEDS: Omeprazole 20 MG CAPSULE.DR PO (06:19)
[2024-01-18 08:53] VITALS: BP 123/60; PULSE 60; RESP 18; TEMP 36.3; O2SAT 94
[2024-01-18] MEDS: metFORMIN HCl ER 500 MG TAB.ER.24H PO (08:54)
[2024-01-18] MEDS: LORazepam 1 MG TABLET PO ×3 (08:54→20:45)
[2024-01-18] MEDS: Sertraline HCL 100 MG TABLET PO ×2 (08:54→20:45)
[2024-01-18] MEDS: polyethylene glycoL 3350 17 GM POWD.PACK PO (08:54)
[2024-01-18] MEDS: Lithium Carbonate 300 MG CAPSULE PO ×2 (08:54→20:46)
[2024-01-18] MEDS: Docusate Sodium 100 MG CAPSULE 200 MG PO ×2 (08:54→20:43)
[2024-01-18 11:32] VITALS: BMI 30.1
[2024-01-18 20:00] VITALS: BP 116/62; PULSE 84; RESP 16; TEMP 36.6; O2SAT 94
[2024-01-18] MEDS: cloZAPine 200 MG, cloZAPine 50 MG 250 MG PO (20:44)
[2024-01-18] MEDS: Tamsulosin HCL 0.4 MG CAPSULE PO (20:44)
[2024-01-18] MEDS: Sennosides 8.6 MG TABLET 17.2 MG PO (20:44)
--- NOTE | 2024-01-18 20:49 | HO.PSYCHPN ---
Subjective Subjective Date of Service: 01/18/24 Reason For Visit: catatonia Subjective Notes: Section 7 Interim History: Pt with orozco affect flat dysphoric somewhat more alert and engaged seems better on lower cloz lorazepam Diagnostics Vital Signs (24Hr): Vital Signs - 24 hr 01/18/24 08:53 Temperature 97.4 F Pulse Rate 60 Respiratory Rate 18 Blood Pressure 123/60 Pulse Oximetry 94 Oxygen Delivery Method Room Air BMI result Body Mass Index 30.1 Labs 01/05/24 11:49 01/17/24 08:14 Labs: Laboratory Results - last 48 hr 01/17/24 08:14 Sodium 144 Potassium 4.3 Chloride 109 H Carbon Dioxide 29 Anion Gap 10 L BUN 24 H Creatinine 1.37 Estim Creat Clear Calc 66.5 Estimated GFR 53 Fasting Glucose 90 Estimat Average Glucose 103 Hemoglobin A1c % 5.2 Calcium 9.4 Total Bilirubin 0.4 AST 15 ALT 12 Alkaline Phosphatase 66 Total Protein 6.6 Albumin 3.9 TSH 0.78 [place] 0.65 Imaging Radiology Impressions: ITS Impressions Chest X-Ray 01/07/24 13:27 IMPRESSION: Bronchial wall thickening may be infectious and/or inflammatory in etiology. Electronically signed by: Marianna Torres MD 01/07/2024 03:31 PM EDT RP Medications Medications Current Medications Acetaminophen (Acetaminophen 325 Mg Tablet) 650 mg PO Q6H PRN PRN Reason: Headache/Pain Mild Scale (1-3) Last Admin: 01/12/24 09:03 Dose: 650 mg Al Hydroxide/Mg Hydroxide (Magnesium Hydrox/Alum Hydrox 30 Ml Oral.Susp) 30 ml PO Q6H PRN PRN Reason: Heartburn/Nausea Clozapine 200 mg/ Clozapine 50 (mg) 250 mg PO DAILY@1930 [facility] Last Admin: 01/17/24 19:55 Dose: 250 mg Docusate Sodium (Docusate Sodium 100 Mg Capsule) [address] [facility] Last Admin: 01/18/24 08:54 Dose: 200 mg Hydroxyzine HCl (Hydroxyzine Hcl 25 Mg Tablet) 25 mg PO Q6H PRN PRN Reason: Anxiety [place] Carbonate ([place] Carbonate 300 Mg Capsule) [address] [facility] Last Admin: 01/18/24 08:54 Dose: 300 mg Lorazepam (Lorazepam 1 Mg Tablet) [address] [facility] Last Admin: 01/18/24 15:04 Dose: 1 mg Magnesium Hydroxide (Milk Of Magnesia 30 Ml Oral.Susp) 30 ml PO DAILY PRN PRN Reason: Constipation Last Admin: 01/11/24 12:48 Dose: 30 ml Metformin HCl (Metformin Hcl Er 500 Mg Tab.Er.24h) [address] [facility] Last Admin: 01/18/24 08:54 Dose: 500 mg Omeprazole (Omeprazole 20 Mg Capsule.Dr) 20 mg PO DAILY@0630 [facility] Last Admin: 01/18/24 06:19 Dose: 20 mg Polyethylene Glycol (Polyethylene Glycol 3350 17 Gm Powd.Pack) [address] [facility] Last Admin: 01/18/24 08:54 Dose: 17 gm Senna (Sennosides 8.6 Mg Tablet) 17.[address] [facility] Last Admin: 01/17/24 19:54 Dose: 17.2 mg Sertraline HCl (Sertraline Hcl 100 Mg Tablet) [address] [facility] Last Admin: 01/18/24 08:54 Dose: 100 mg Tamsulosin HCl (Tamsulosin Hcl 0.4 Mg Capsule) 0.[address] [facility] Last Admin: 01/17/24 19:58 Dose: 0.4 mg Trazodone HCl (Trazodone Hcl 50 Mg Tablet) 50 mg PO BEDTIME MRX1 PRN PRN Reason: Insomnia Last Admin: 01/17/24 19:56 Dose: 50 mg Allergies Allergies Allergy/AdvReac Type Severity Reaction Status Date / Time No Known Allergies [NKA] Allergy Unknown NONE Verified 01/05/24 11:31 Assessment & Plan Assessment & Plan (1) Catatonia: Status: Acute Code(s): F06.1 - Catatonic disorder due to known physiological condition (2) Schizoaffective disorder, depressive type: Status: Acute Code(s): F25.1 - Schizoaffective disorder, depressive type (3) Essential (primary) hypertension: Status: Acute Code(s): I10 - Essential (primary) hypertension (4) Diabetes mellitus: Qualifiers: Diabetes mellitus type: type 2 Diabetes mellitus nursing home insulin use: without ocean transportation intermediary use Diabetes mellitus complication status: with hyperglycemia Qualified Code(s): E11.65 - Type 2 diabetes mellitus with hyperglycemia Status: Acute Code(s): E11.9 - Type 2 diabetes mellitus without complications (5) Sleep apnea: Status: Acute Code(s): G47.30 - Sleep apnea, unspecified Plan 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 Patient not tolerating combination of clozapine and lorazepam appears overly sedated lethargic remains blunted psychomotor retarded with catatonia. Will lower Ativan to 1 mg 3 times a day lower clozapine to 250 mg hopefully patient will be more alert and we can better tease out catatonia versus medication induced lethargy on top of that. The patient has had a complicated response in the past to ECT. Last year did seem to help him in some years past the patient did have a course of over 10 treatments that did not help with his catatonia and eventually responded to combination of clozapine and lorazepam. stop abilify If patient becomes more alert will try and see if he is able to possibly consent for ECT which he has done in the past there was a lot of negative feedback from a family member which had been difficult for the patient to deal with. There is a court hearing for treatment order and retention scheduled past records in responses extensively reviewed 01/18/24 cont current tx plan improvement noted abilify d/c in context of catatonia monitor response to dec clozapine lower ativan . trying to balance catatonia tx vs oversedation ect remains possible option but pt improved today Reason for continued inpatient stay Substantial Risk for: inability to function, rapid decompensation and med/psych decompensation Time Spent With Patient Time: Total time managing care of this patient today ____ minutes.
[2024-01-19] MEDS: Omeprazole 20 MG CAPSULE.DR PO (06:24)
[2024-01-19 08:00] VITALS: BP 126/78; PULSE 69; RESP 20; TEMP 36.2; O2SAT 97
[2024-01-19] MEDS: Lithium Carbonate 300 MG CAPSULE PO ×2 (08:55→21:49)
[2024-01-19] MEDS: Sertraline HCL 100 MG TABLET PO ×2 (08:55→21:49)
[2024-01-19] MEDS: LORazepam 1 MG TABLET PO ×3 (08:55→21:49)
[2024-01-19] MEDS: metFORMIN HCl ER 500 MG TAB.ER.24H PO (08:56)
[2024-01-19] MEDS: Docusate Sodium 100 MG CAPSULE 200 MG PO ×2 (08:56→21:48)
[2024-01-19] MEDS: polyethylene glycoL 3350 17 GM POWD.PACK PO (08:57)
[2024-01-19 09:10] LABS: Neut%MD 73.6 %; Neutrophils Absolute Auto 5.3 x10*3/uL (2.0-8.3); WBCANC 7.2 X10*3/uL
[2024-01-19 09:17] LABS: Lithium 0.89 mmol/L (0.60-1.20)
[2024-01-19 20:00] VITALS: BP 139/66; PULSE 77; RESP 16; TEMP 36.6; O2SAT 95
[2024-01-19] MEDS: cloZAPine 200 MG, cloZAPine 50 MG 250 MG PO (21:47)
[2024-01-19] MEDS: Tamsulosin HCL 0.4 MG CAPSULE PO (21:49)
[2024-01-19] MEDS: Sennosides 8.6 MG TABLET 17.2 MG PO (21:49)
[2024-01-20 09:09] VITALS: BP 132/61; PULSE 79; RESP 16; TEMP 36.5; O2SAT 96
[2024-01-20] MEDS: polyethylene glycoL 3350 17 GM POWD.PACK PO (09:10)
[2024-01-20] MEDS: LORazepam 1 MG TABLET PO (09:11)
[2024-01-20] MEDS: Sertraline HCL 100 MG TABLET PO ×2 (09:11→20:39)
[2024-01-20] MEDS: Lithium Carbonate 300 MG CAPSULE PO ×2 (09:11→20:39)
[2024-01-20] MEDS: Docusate Sodium 100 MG CAPSULE 200 MG PO (09:11)
[2024-01-20] MEDS: metFORMIN HCl ER 500 MG TAB.ER.24H PO (09:11)
[2024-01-20] MEDS: LORazepam 2 MG/ML VIAL IM (11:55)
--- NOTE | 2024-01-20 12:09 | PC.NURSE ---
Patient appears more catatonic today than previous days. He has been in bed the entire morning, minimal response to questions with no facial expressions upon interactions. Patient also noted to have audible mucous buildup, upon assessment lung sounds were clear and patient is sitting up in bed and encouraged to cough to prevent aspiration. Provider Dahiana Haney notified and ordered 2mg Ativan IM. Patient agreed to medication which was placed in his left deltoid, pending effectiveness.
[2024-01-20 14:14] VITALS: BP 129/93
[2024-01-20] MEDS: cloNIDine HCL 0.1 MG TABLET 0.05 MG PO ×2 (14:14→20:39)
[2024-01-20] MEDS: LORazepam 1 MG TABLET 2 MG PO ×2 (15:06→20:39)
[2024-01-20 20:00] VITALS: BP 126/68; PULSE 76; RESP 16; TEMP 36.4; O2SAT 98
--- NOTE | 2024-01-20 20:10 | HO.PSYCHPN ---
Subjective Subjective Date of Service: 01/20/24 Reason For Visit: catatonia Subjective Notes: Conditional Voluntary Interim History: Pt slept most of the night. He is standing, staring, waxy flexibility on exam, mute. given ativan 2mg IM for catatonia- with good effect. increased ativan dose to 2mg TID. however, other side effects in terms of unsteady gait. started on clonidine low dose for hypersalivation, trying to avoid adding yet another anticholihergic medications given his chronic constipation. Later he appeared more talkative and was able to eat. Review of Systems Review of Systems Yes Other (patient not answering ROS secondary to catatonic state) Mental Status Exam Mental Status Exam Narrative: disheveled, hospital garb. PMR. poor eye contact. cooperative. speech almost nil, nearly inaudible. thoughts difficult to discern, overtly linear. affect flat. mood, SI/HI/AVH unable to assess (pt made no response to questions). Diagnostics Vital Signs (24Hr): Vital Signs - 24 hr 01/20/24 09:09 01/20/24 14:14 Temperature 97.7 F Pulse Rate 79 Respiratory Rate 16 Blood Pressure 132/61 129/93 H Pulse Oximetry 96 Oxygen Delivery Method Room Air BMI result Body Mass Index 30.1 Labs 01/05/24 11:49 01/21/24 12:20 Labs: Laboratory Results - last 48 hr 01/19/24 08:50 Absolute [place] (auto) 5.3 [place] 0.89 Imaging Radiology Impressions: ITS Impressions Chest X-Ray 01/07/24 13:27 IMPRESSION: Bronchial wall thickening may be infectious and/or inflammatory in etiology. Electronically signed by: Marianna Torres MD 01/07/2024 03:31 PM EDT Medications Medications Current Medications Acetaminophen (Acetaminophen 325 Mg Tablet) 650 mg PO Q6H PRN PRN Reason: Headache/Pain Mild Scale (1-3) Last Admin: 01/12/24 09:03 Dose: 650 mg Al Hydroxide/Mg Hydroxide (Magnesium Hydrox/Alum Hydrox 30 Ml Oral.Susp) 30 ml PO Q6H PRN PRN Reason: Heartburn/Nausea Clonidine HCl (Clonidine Hcl 0.1 Mg Tablet) 0.05 mg PO BID [facility]; Protocol Last Admin: 01/20/24 14:14 Dose: 0.05 mg Clozapine 200 mg/ Clozapine 50 (mg) 250 mg PO DAILY@1930 [facility] Last Admin: 01/19/24 21:47 Dose: 250 mg Docusate Sodium (Docusate Sodium 100 Mg Capsule) 100 mg PO BID [facility] Hydroxyzine HCl (Hydroxyzine Hcl 25 Mg Tablet) 25 mg PO Q6H PRN PRN Reason: Anxiety [place] Carbonate ([place] Carbonate 300 Mg Capsule) 300 mg PO BID [facility] Last Admin: 01/20/24 09:11 Dose: 300 mg Lorazepam (Lorazepam 1 Mg Tablet) 2 mg PO TID [facility] Last Admin: 01/20/24 15:06 Dose: 2 mg Magnesium Hydroxide (Milk Of Magnesia 30 Ml Oral.Susp) 30 ml PO DAILY PRN PRN Reason: Constipation Last Admin: 01/11/24 12:48 Dose: 30 ml Metformin HCl (Metformin Hcl Er 500 Mg Tab.Er.24h) 500 mg PO DAILY [facility] Last Admin: 01/20/24 09:11 Dose: 500 mg Omeprazole (Omeprazole 20 Mg Capsule.Dr) 20 mg PO DAILY@0630 [facility] Last Admin: 01/20/24 08:40 Dose: Not Given Polyethylene Glycol (Polyethylene Glycol 3350 17 Gm Powd.Pack) 17 gm PO DAILY [facility] Last Admin: 01/20/24 09:10 Dose: 17 gm Senna (Sennosides 8.6 Mg Tablet) 17.2 mg PO BEDTIME [facility] Last Admin: 01/19/24 21:49 Dose: 17.2 mg Sertraline HCl (Sertraline Hcl 100 Mg Tablet) 100 mg PO BID [facility] Last Admin: 01/20/24 09:11 Dose: 100 mg Tamsulosin HCl (Tamsulosin Hcl 0.4 Mg Capsule) 0.4 mg PO BEDTIME [facility] Last Admin: 01/19/24 21:49 Dose: 0.4 mg Trazodone HCl (Trazodone Hcl 50 Mg Tablet) 50 mg PO BEDTIME MRX1 PRN PRN Reason: Insomnia Last Admin: 01/17/24 19:56 Dose: 50 mg Allergies Allergies Allergy/AdvReac Type Severity Reaction Status Date / Time No Known Allergies [NKA] Allergy Unknown NONE Verified 01/05/24 11:31 Assessment & Plan Assessment & Plan (1) Catatonia: Status: Acute Code(s): F06.1 - Catatonic disorder due to known physiological condition (2) Schizoaffective disorder, depressive type: Status: Acute Code(s): F25.1 - Schizoaffective disorder, depressive type (3) Essential (primary) hypertension: Status: Acute Code(s): I10 - Essential (primary) hypertension (4) Diabetes mellitus: Qualifiers: Diabetes mellitus complication status: with hyperglycemia Diabetes mellitus intermediate teacher insulin use: without intermediate teacher use Diabetes mellitus type: type 2 Qualified Code(s): E11.65 - Type 2 diabetes mellitus with hyperglycemia Status: Acute Code(s): E11.9 - Type 2 diabetes mellitus without complications (5) Sleep apnea: Status: Acute Code(s): G47.30 - Sleep apnea, unspecified Plan 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 Patient not tolerating combination of clozapine and lorazepam appears overly sedated lethargic remains blunted psychomotor retarded with catatonia. Will lower Ativan to 1 mg 3 times a day lower clozapine to 250 mg hopefully patient will be more alert and we can better tease out catatonia versus medication induced lethargy on top of that. The patient has had a complicated response in the past to ECT. Last year did seem to help him in some years past the patient did have a course of over 10 treatments that did not help with his catatonia and eventually responded to combination of clozapine and lorazepam. stop abilify If patient becomes more alert will try and see if he is able to possibly consent for ECT which he has done in the past there was a lot of negative feedback from a family member which had been difficult for the patient to deal with. There is a court hearing for treatment order and retention scheduled past records in responses extensively reviewed 01/18/24 cont current tx plan improvement noted abilify d/c in context of catatonia monitor response to dec clozapine lower ativan . trying to balance catatonia tx vs oversedation ect remains possible option but pt improved today 01/19 increased ativan back to 2mg po TID due to worsening catatonia. started clonidine 0.05mg po BID for hypersalivation, trying to avoid anticholinergic medication for this side effects given ongoing constipation. monitor BP, renal function. Reason for continued inpatient stay Substantial Risk for: inability to function Time Spent With Patient Time: Total time managing care of this patient today ____ minutes.
[2024-01-20] MEDS: Docusate Sodium 100 MG CAPSULE PO (20:38)
[2024-01-20] MEDS: Tamsulosin HCL 0.4 MG CAPSULE PO (20:38)
[2024-01-20 20:39] VITALS: BP 126/68
[2024-01-20] MEDS: cloZAPine 200 MG, cloZAPine 50 MG 250 MG PO (20:39)
[2024-01-20] MEDS: Sennosides 8.6 MG TABLET 17.2 MG PO (20:41)
[2024-01-21] MEDS: Omeprazole 20 MG CAPSULE.DR PO (06:28)
[2024-01-21 08:00] VITALS: BP 139/86; PULSE 73; RESP 16; TEMP 36.4; O2SAT 93
[2024-01-21 08:04] LABS: Creatinine Clr Calc Pharmacy 55.4; Estimated Glomerular Filt Rate 43
[2024-01-21] MEDS: polyethylene glycoL 3350 17 GM POWD.PACK PO (09:18)
[2024-01-21] MEDS: metFORMIN HCl ER 500 MG TAB.ER.24H PO (09:20)
[2024-01-21] MEDS: LORazepam 1 MG TABLET 2 MG PO ×3 (09:22→20:20)
[2024-01-21] MEDS: Sertraline HCL 100 MG TABLET PO ×2 (09:23→20:22)
[2024-01-21] MEDS: Docusate Sodium 100 MG CAPSULE PO ×2 (09:23→20:21)
[2024-01-21] MEDS: cloNIDine HCL 0.1 MG TABLET 0.05 MG PO ×2 (09:24→20:20)
[2024-01-21] MEDS: Lithium Carbonate 300 MG CAPSULE PO ×2 (09:24→20:20)
[2024-01-21 12:49] LABS: Alanine Aminotransferase 15 U/L (0-40); Alkaline Phosphatase 65 U/L (39-117); Anion Gap 13 (12-20); Aspartate Amino Transferase 15 U/L (5-37); Bilirubin Total 0.5 mg/dL (0.0-1.0); Blood Urea Nitrogen 31 mg/dL (9-16); Calcium 9.3 mg/dL (8.4-10.2); Carbon Dioxide 26 mmol/L (22-29); Chloride 106 mmol/L (96-108); Creatinine Clr Calc Pharmacy 51.6; Estimated Glomerular Filt Rate 40; Glucose Random 173 mg/dL (60-115); Potassium 3.8 mmol/L (3.3-5.1); Sodium 141 mmol/L (135-145); Total Protein 6.7 g/dL (6.5-8.0)
--- NOTE | 2024-01-21 16:01 | P.PNPSI_ITS ---
Subjective Subjective Date of Service: 01/21/24 Reason For Visit: catatonia Subjective Notes: Conditional Voluntary Interim History: Pt slept most of the night. Labs completed- renal function elevated Cr and BUN. will repeat adding electrolytes and lithium level. Pt more visible, slightly more spontaneous but ativan does seem to have partial benefit. Review of Systems Review of Systems Yes Other (patient not answering ROS secondary to catatonic state) Mental Status Exam Mental Status Exam Patient Appearance: Fatigued Patient Orientation: Person, Place and Situation Level of Consciousness: Drowsy, Sedated and Lethargic Patient Behavior: Guarded and Passive Mood Description: Withdrawn, Depressed and Blunted Affect Description: Constricted and Blunted Patient Cognition Impaired: Yes Ability to Follow Directions: Good Speech Pattern: Whisper, Delayed and Long Pauses Diagnostics Vital Signs (24Hr): Vital Signs - 24 hr 01/20/24 20:00 01/20/24 20:39 01/21/24 08:00 Temperature 97.6 F 97.5 F Pulse Rate 76 73 Respiratory Rate 16 16 Blood Pressure 126/68 126/68 139/86 Pulse Oximetry 98 93 Oxygen Delivery Method Room Air Room Air BMI result Body Mass Index 30.1 Labs 01/05/24 11:49 01/21/24 12:20 Labs: Laboratory Results - last 48 hr 01/21/24 01/21/24 07:36 12:20 Sodium 141 Potassium 3.8 Chloride 106 Carbon Dioxide 26 Anion Gap 13 BUN 31 H Creatinine 1.64 H 1.76 H Estim Creat Clear Calc 55.4 51.6 Estimated GFR 43 40 Random Glucose 173 H Calcium 9.3 Total Bilirubin 0.5 AST 15 ALT 15 Alkaline Phosphatase 65 Total Protein 6.7 Albumin 4.0 [place] 1.20 Imaging Radiology Impressions: ITS Impressions Chest X-Ray 01/07/24 13:27 IMPRESSION: Bronchial wall thickening may be infectious and/or inflammatory in etiology. Electronically signed by: Marianna Torres MD 01/07/2024 03:31 PM EDT Medications Medications Current Medications Acetaminophen (Acetaminophen 325 Mg Tablet) 650 mg PO Q6H PRN PRN Reason: Headache/Pain Mild Scale (1-3) Last Admin: 01/12/24 09:03 Dose: 650 mg Al Hydroxide/Mg Hydroxide (Magnesium Hydrox/Alum Hydrox 30 Ml Oral.Susp) 30 ml PO Q6H PRN PRN Reason: Heartburn/Nausea Clonidine HCl (Clonidine Hcl 0.1 Mg Tablet) 0.05 mg PO BID [facility]; Protocol Last Admin: 01/21/24 09:24 Dose: 0.05 mg Clozapine 200 mg/ Clozapine 50 (mg) 250 mg PO DAILY@1930 [facility] Last Admin: 01/20/24 20:39 Dose: 250 mg Docusate Sodium (Docusate Sodium 100 Mg Capsule) 100 mg PO BID [facility] Last Admin: 01/21/24 09:23 Dose: 100 mg Hydroxyzine HCl (Hydroxyzine Hcl 25 Mg Tablet) 25 mg PO Q6H PRN PRN Reason: Anxiety [place] Carbonate ([place] Carbonate 300 Mg Capsule) 300 mg PO BID [facility] Last Admin: 01/21/24 09:24 Dose: 300 mg Lorazepam (Lorazepam 1 Mg Tablet) 2 mg PO TID [facility] Last Admin: 01/21/24 15:44 Dose: 2 mg Magnesium Hydroxide (Milk Of Magnesia 30 Ml Oral.Susp) 30 ml PO DAILY PRN PRN Reason: Constipation Last Admin: 01/11/24 12:48 Dose: 30 ml Metformin HCl (Metformin Hcl Er 500 Mg Tab.Er.24h) 500 mg PO DAILY [facility] Last Admin: 01/21/24 09:20 Dose: 500 mg Omeprazole (Omeprazole 20 Mg Capsule.Dr) 20 mg PO DAILY@0630 [facility] Last Admin: 01/21/24 06:28 Dose: 20 mg Polyethylene Glycol (Polyethylene Glycol 3350 17 Gm Powd.Pack) 17 gm PO DAILY [facility] Last Admin: 01/21/24 09:18 Dose: 17 gm Senna (Sennosides 8.6 Mg Tablet) 17.2 mg PO BEDTIME [facility] Last Admin: 01/20/24 20:41 Dose: 17.2 mg Sertraline HCl (Sertraline Hcl 100 Mg Tablet) 100 mg PO BID [facility] Last Admin: 01/21/24 09:23 Dose: 100 mg Tamsulosin HCl (Tamsulosin Hcl 0.4 Mg Capsule) 0.4 mg PO BEDTIME [facility] Last Admin: 01/20/24 20:38 Dose: 0.4 mg Trazodone HCl (Trazodone Hcl 50 Mg Tablet) 50 mg PO BEDTIME MRX1 PRN PRN Reason: Insomnia Last Admin: 01/17/24 19:56 Dose: 50 mg Allergies Allergies Allergy/AdvReac Type Severity Reaction Status Date / Time No Known Allergies [NKA] Allergy Unknown NONE Verified 01/05/24 11:31 Assessment & Plan Assessment & Plan (1) Catatonia: Status: Acute Code(s): F06.1 - Catatonic disorder due to known physiological condition (2) Schizoaffective disorder, depressive type: Status: Acute Code(s): F25.1 - Schizoaffective disorder, depressive type (3) Essential (primary) hypertension: Status: Acute Code(s): I10 - Essential (primary) hypertension (4) Diabetes mellitus: Qualifiers: Diabetes mellitus complication status: with hyperglycemia Diabetes mellitus intermediate accountant insulin use: without longterm use Diabetes mellitus type: t ype 2 Qualified Code(s): E11.65 - Type 2 diabetes mellitus with hyperglycemia Status: Acute Code(s): E11.9 - Type 2 diabetes mellitus without complications (5) Sleep apnea: Status: Acute Code(s): G47.30 - Sleep apnea, unspecified Plan 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 Patient not tolerating combination of clozapine and lorazepam appears overly sedated lethargic remains blunted psychomotor retarded with catatonia. Will lower Ativan to 1 mg 3 times a day lower clozapine to 250 mg hopefully patient will be more alert and we can better tease out catatonia versus medication induced lethargy on top of that. The patient has had a complicated response in the past to ECT. Last year did seem to help him in some years past the patient did have a course of over 10 treatments that did not help with his catatonia and eventually responded to combination of clozapine and lorazepam. stop abilify If patient becomes more alert will try and see if he is able to possibly consent for ECT which he has done in the past there was a lot of negative feedback from a family member which had been difficult for the patient to deal with. There is a court hearing for treatment order and retention scheduled past records in responses extensively reviewed 01/18/24 cont current tx plan improvement noted abilify d/c in context of catatonia monitor response to dec clozapine lower ativan . trying to balance catatonia tx vs oversedation ect remains possible option but pt improved today 01/20 recheck renal, with electrolytes and lithium level. hold lithium given [place]. encouraged fluids. may need IV fluids. Reason for continued inpatient stay Substantial Risk for: inability to function Time Spent With Patient Time: Total time managing care of this patient today ____ minutes.
[2024-01-21 20:00] VITALS: BP 109/56; PULSE 74; RESP 16; TEMP 36.6; O2SAT 99
[2024-01-21] MEDS: Sennosides 8.6 MG TABLET 17.2 MG PO (20:20)
[2024-01-21] MEDS: Tamsulosin HCL 0.4 MG CAPSULE PO (20:20)
[2024-01-21] MEDS: cloZAPine 200 MG, cloZAPine 50 MG 250 MG PO (20:21)
--- NOTE | 2024-01-21 22:11 | HO.PSYCHPN ---
Subjective Subjective Date of Service: 01/19/24 Reason For Visit: catatonia Subjective Notes: Section 7 Interim History: late entry for 01/19/24 Pt getting oob more but wooden depressed looking minimally reactive verbally He is eating and drinking Mental Status Exam Mental Status Exam Patient Appearance: Fatigued Patient Orientation: Person, Place and Situation Level of Consciousness: Drowsy, Sedated and Lethargic Patient Behavior: Guarded and Passive Mood Description: Withdrawn, Depressed and Blunted Affect Description: Constricted and Blunted Patient Cognition Impaired: Yes Ability to Follow Directions: Good Speech Pattern: Whisper, Delayed and Long Pauses Thought Process: Distracted and Slowed Thinking Thought Content: positive for [place] and positive for Thought Blocking Abnormal Motor Activity Signs and Symptoms: Psychomotor Retardation Judgement: Poor Judgement and Insight: Patient nods yes when asked about depression does not respond when asked about hallucinations or si or hi Diagnostics Vital Signs (24Hr): Vital Signs - 24 hr 01/21/24 08:00 01/21/24 20:00 Temperature 97.5 F 97.8 F Pulse Rate 73 74 Respiratory Rate 16 16 Blood Pressure 139/86 109/56 L Pulse Oximetry 93 99 Oxygen Delivery Method Room Air Room Air BMI result Body Mass Index 30.1 Labs 01/05/24 11:49 01/21/24 12:20 Labs: Laboratory Results - last 48 hr 01/21/24 01/21/24 07:36 12:20 Sodium 141 Potassium 3.8 Chloride 106 Carbon Dioxide 26 Anion Gap 13 BUN 31 H Creatinine 1.64 H 1.76 H Estim Creat Clear Calc 55.4 51.6 Estimated GFR 43 40 Random Glucose 173 H Calcium 9.3 Total Bilirubin 0.5 AST 15 ALT 15 Alkaline Phosphatase 65 Total Protein 6.7 Albumin 4.0 [place] 1.20 Imaging Radiology Impressions: ITS Impressions Chest X-Ray 01/07/24 13:27 IMPRESSION: Bronchial wall thickening may be infectious and/or inflammatory in etiology. Electronically signed by: Marianna Torres MD 01/07/2024 03:31 PM EDT RP Medications Medications Current Medications Acetaminophen (Acetaminophen 325 Mg Tablet) 650 mg PO Q6H PRN PRN Reason: Headache/Pain Mild Scale (1-3) Last Admin: 01/12/24 09:03 Dose: 650 mg Al Hydroxide/Mg Hydroxide (Magnesium Hydrox/Alum Hydrox 30 Ml Oral.Susp) 30 ml PO Q6H PRN PRN Reason: Heartburn/Nausea Clonidine HCl (Clonidine Hcl 0.1 Mg Tablet) 0.05 mg PO BID COUNTS INCLUDE 234 BEDS AT THE [facility]; Protocol Last Admin: 01/21/24 20:20 Dose: 0.05 mg Clozapine 200 mg/ Clozapine 50 (mg) 250 mg PO DAILY@1930 COUNTS INCLUDE 234 BEDS AT THE [facility] Last Admin: 01/21/24 20:21 Dose: 250 mg Docusate Sodium (Docusate Sodium 100 Mg Capsule) 100 mg PO BID COUNTS INCLUDE 234 BEDS AT THE [facility] Last Admin: 01/21/24 20:21 Dose: 100 mg Hydroxyzine HCl (Hydroxyzine Hcl 25 Mg Tablet) 25 mg PO Q6H PRN PRN Reason: Anxiety [place] Carbonate ([place] Carbonate 300 Mg Capsule) 300 mg PO BID COUNTS INCLUDE 234 BEDS AT THE [facility] Last Admin: 01/21/24 20:20 Dose: 300 mg Lorazepam (Lorazepam 1 Mg Tablet) 2 mg PO TID COUNTS INCLUDE 234 BEDS AT THE [facility] Last Admin: 01/21/24 20:20 Dose: 2 mg Magnesium Hydroxide (Milk Of Magnesia 30 Ml Oral.Susp) 30 ml PO DAILY PRN PRN Reason: Constipation Last Admin: 01/11/24 12:48 Dose: 30 ml Metformin HCl (Metformin Hcl Er 500 Mg Tab.Er.24h) 500 mg PO DAILY COUNTS INCLUDE 234 BEDS AT THE [facility] Last Admin: 01/21/24 09:20 Dose: 500 mg Omeprazole (Omeprazole 20 Mg Capsule.Dr) 20 mg PO DAILY@0630 COUNTS INCLUDE 234 BEDS AT THE [facility] Last Admin: 01/21/24 06:28 Dose: 20 mg Polyethylene Glycol (Polyethylene Glycol 3350 17 Gm Powd.Pack) 17 gm PO DAILY COUNTS INCLUDE 234 BEDS AT THE [facility] Last Admin: 01/21/24 09:18 Dose: 17 gm Senna (Sennosides 8.6 Mg Tablet) 17.2 mg PO BEDTIME COUNTS INCLUDE 234 BEDS AT THE [facility] Last Admin: 01/21/24 20:20 Dose: 17.2 mg Sertraline HCl (Sertraline Hcl 100 Mg Tablet) 100 mg PO BID COUNTS INCLUDE 234 BEDS AT THE [facility] Last Admin: 01/21/24 20:22 Dose: 100 mg Tamsulosin HCl (Tamsulosin Hcl 0.4 Mg Capsule) 0.4 mg PO BEDTIME COUNTS INCLUDE 234 BEDS AT THE [facility] Last Admin: 01/21/24 20:20 Dose: 0.4 mg Trazodone HCl (Trazodone Hcl 50 Mg Tablet) 50 mg PO BEDTIME MRX1 PRN PRN Reason: Insomnia Last Admin: 01/17/24 19:56 Dose: 50 mg Allergies Allergies Allergy/AdvReac Type Severity Reaction Status Date / Time No Known Allergies [NKA] Allergy Unknown NONE Verified 01/05/24 11:31 Assessment & Plan Assessment & Plan (1) Catatonia: Status: Acute Code(s): F06.1 - Catatonic disorder due to known physiological condition (2) Schizoaffective disorder, depressive type: Status: Acute Code(s): F25.1 - Schizoaffective disorder, depressive type (3) Essential (primary) hypertension: Status: Acute Code(s): I10 - Essential (primary) hypertension (4) Diabetes mellitus: Qualifiers: Diabetes mellitus type: type 2 Diabetes mellitus jail insulin use: without jail use Diabetes mellitus complication status: with hyperglycemia Qualified Code(s): E11.65 - Type 2 diabetes mellitus with hyperglycemia Status: Acute Code(s): E11.9 - Type 2 diabetes mellitus without complications (5) Sleep apnea: Status: Acute Code(s): G47.30 - Sleep apnea, unspecified Plan 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 Patient not tolerating combination of clozapine and lorazepam appears overly sedated lethargic remains blunted psychomotor retarded with catatonia. Will lower Ativan to 1 mg 3 times a day lower clozapine to 250 mg hopefully patient will be more alert and we can better tease out catatonia versus medication induced lethargy on top of that. The patient has had a complicated response in the past to ECT. Last year did seem to help him in some years past the patient did have a course of over 10 treatments that did not help with his catatonia and eventually responded to combination of clozapine and lorazepam. stop abilify If patient becomes more alert will try and see if he is able to possibly consent for ECT which he has done in the past there was a lot of negative feedback from a family member which had been difficult for the patient to deal with. There is a court hearing for treatment order and retention scheduled past records in responses extensively reviewed 01/18/24 cont current tx plan improvement noted abilify d/c in context of catatonia monitor response to dec clozapine lower ativan . trying to balance catatonia tx vs oversedation ect remains possible option but pt improved today 01/19/24 labs reviewed some inc oob but significant thought blocking may try to inc lorazepam again if no change next few days will recommend ect Reason for continued inpatient stay Substantial Risk for: inability to function, rapid decompensation and med/psych decompensation Time Spent With Patient Time: Total time managing care of this patient today ____ minutes.
[2024-01-22 05:53] LABS: Clozapine (Clozaril) 353 mcg/L; Norclozapine 196 mcg/L (25-400)
[2024-01-22] MEDS: Omeprazole 20 MG CAPSULE.DR PO (06:33)
[2024-01-22 08:00] VITALS: BP 120/58; PULSE 65; RESP 16; O2SAT 95
[2024-01-22 08:35] VITALS: BP 120/58
[2024-01-22] MEDS: LORazepam 1 MG TABLET 2 MG PO ×3 (08:35→20:30)
[2024-01-22] MEDS: Docusate Sodium 100 MG CAPSULE PO ×2 (08:35→20:31)
[2024-01-22] MEDS: cloNIDine HCL 0.1 MG TABLET 0.05 MG PO ×2 (08:35→20:32)
[2024-01-22] MEDS: Sertraline HCL 100 MG TABLET PO ×2 (08:35→20:31)
[2024-01-22] MEDS: Lithium Carbonate 300 MG CAPSULE PO (08:35)
[2024-01-22] MEDS: polyethylene glycoL 3350 17 GM POWD.PACK PO (08:37)
[2024-01-22] MEDS: metFORMIN HCl 500 MG TABLET PO (08:43)
--- NOTE | 2024-01-22 10:58 | PM.EVENT ---
Event Note Date of Service: 01/22/24 Event Note: consult for CAMILLE pt is catatonic and nurse reports he was eating and drinking minimally yesterday. has not moved today and has not had anything PO. met with pt who was laying in bed sleeping. answered yes/no to me. has been urinating and agreed to push PO fluids today due to CAMILLE. he is aware he will need IVF if he does not push PO fluids today. spoke with nurse who is aware and will encourage pt. recheck BMP tomorrow Time Spent With Patient Time: Total time managing care of this patient today 10 minutes.
[2024-01-22 16:37] LABS: Alanine Aminotransferase 10 U/L (0-40); Albumin Level 3.8 g/dL (3.5-5.0); Alkaline Phosphatase 55 U/L (39-117); Anion Gap 10 (12-20); Aspartate Amino Transferase 18 U/L (5-37); Bilirubin Total 0.4 mg/dL (0.0-1.0); Blood Urea Nitrogen 29 mg/dL (9-16); Carbon Dioxide 28 mmol/L (22-29); Chloride 107 mmol/L (96-108); Creatinine Clr Calc Pharmacy 54.4; Estimated Glomerular Filt Rate 42; Glucose Random 96 mg/dL (60-115); Potassium 3.8 mmol/L (3.3-5.1); Sodium 141 mmol/L (135-145); Total Protein 6.3 g/dL (6.5-8.0)
[2024-01-22 20:00] VITALS: BP 111/57; PULSE 60; RESP 18; TEMP 36.2; O2SAT 96
[2024-01-22] MEDS: cloZAPine 200 MG, cloZAPine 50 MG 250 MG PO (20:30)
[2024-01-22] MEDS: Tamsulosin HCL 0.4 MG CAPSULE PO (20:31)
[2024-01-22] MEDS: Sennosides 8.6 MG TABLET 17.2 MG PO (20:32)
--- NOTE | 2024-01-22 22:59 | HO.PSYCHPN ---
Subjective Subjective Date of Service: 01/22/24 Reason For Visit: catatonia Subjective Notes: Section 7 Healthcare Proxy: No Guardianship: No Interim History: Pt has some improvement noted orozco affect les restricted in speech inc creat noted has been taking lorazepam clozapine. Mental Status Exam Mental Status Exam Patient Appearance: Fatigued Patient Orientation: Person, Place and Situation Level of Consciousness: Awake and Drowsy Patient Behavior: Guarded and Passive Mood Description: Withdrawn, Depressed and Blunted Affect Description: Constricted and Blunted Patient Cognition Impaired: Yes Ability to Follow Directions: Good Speech Pattern: Whisper and Delayed Hallucinations: Auditory (vague) Delusions: Not Present Thought Process: Distracted and Slowed Thinking Thought Content: positive for [place] and positive for Thought Blocking Abnormal Motor Activity Signs and Symptoms: Psychomotor Retardation Judgement: Poor Judgement and Insight: Patient nods yes when asked about depression some inc verbal output Diagnostics Vital Signs (24Hr): Vital Signs - 24 hr 01/22/24 08:00 01/22/24 08:35 01/22/24 20:00 Temperature 97.1 F Pulse Rate 65 60 Respiratory Rate 16 18 Blood Pressure 120/58 L 120/58 L 111/57 L Pulse Oximetry 95 96 Oxygen Delivery Method Room Air Room Air BMI result Body Mass Index 30.1 Labs 01/05/24 11:49 01/22/24 16:09 Labs: Laboratory Results - last 48 hr 01/17/24 01/21/24 01/21/24 08:14 07:36 12:20 Sodium 141 Potassium 3.8 Chloride 106 Carbon Dioxide 26 Anion Gap 13 BUN 31 H Creatinine 1.64 H 1.76 H Estim Creat Clear Calc 55.4 51.6 Estimated GFR 43 40 Random Glucose 173 H Calcium 9.3 Total Bilirubin 0.5 AST 15 ALT 15 Alkaline Phosphatase 65 Total Protein 6.7 Albumin 4.0 Clozapine 353 Norclozapine 196 [place] 1.20 01/22/24 16:09 Sodium 141 Potassium 3.8 Chloride 107 Carbon Dioxide 28 Anion Gap 10 L BUN 29 H Creatinine 1.67 H Estim Creat Clear Calc 54.4 Estimated GFR 42 Random Glucose 96 Calcium 9.0 Total Bilirubin 0.4 AST 18 ALT 10 Alkaline Phosphatase 55 Total Protein 6.3 L Albumin 3.8 Clozapine Norclozapine [place] Imaging Radiology Impressions: ITS Impressions Chest X-Ray 01/07/24 13:27 IMPRESSION: Bronchial wall thickening may be infectious and/or inflammatory in etiology. Electronically signed by: Marianna Torres MD 01/07/2024 03:31 PM EDT RP Medications Medications Current Medications Acetaminophen (Acetaminophen 325 Mg Tablet) 650 mg PO Q6H PRN PRN Reason: Headache/Pain Mild Scale (1-3) Last Admin: 01/12/24 09:03 Dose: 650 mg Al Hydroxide/Mg Hydroxide (Magnesium Hydrox/Alum Hydrox 30 Ml Oral.Susp) 30 ml PO Q6H PRN PRN Reason: Heartburn/Nausea Clonidine HCl (Clonidine Hcl 0.1 Mg Tablet) 0.05 mg PO BID [facility]; Protocol Last Admin: 01/22/24 20:32 Dose: 0.05 mg Clozapine 200 mg/ Clozapine 50 (mg) 250 mg PO DAILY@193 [facility] Last Admin: 01/22/24 20:30 Dose: 250 mg Docusate Sodium (Docusate Sodium 100 Mg Capsule) 100 mg PO BID [facility] Last Admin: 01/22/24 20:31 Dose: 100 mg Hydroxyzine HCl (Hydroxyzine Hcl 25 Mg Tablet) 25 mg PO Q6H PRN PRN Reason: Anxiety [place] Carbonate ([place] Carbonate 300 Mg Capsule) 300 mg PO BEDTIME [facility] Lorazepam (Lorazepam 1 Mg Tablet) 2 mg PO TID [facility] Last Admin: 01/22/24 20:30 Dose: 2 mg Magnesium Hydroxide (Milk Of Magnesia 30 Ml Oral.Susp) 30 ml PO DAILY PRN PRN Reason: Constipation Last Admin: 01/11/24 12:48 Dose: 30 ml Metformin HCl (Metformin Hcl 500 Mg Tablet) 500 mg PO DAILY [facility] Last Admin: 01/22/24 08:43 Dose: 500 mg Omeprazole (Omeprazole 20 Mg Capsule.Dr) 20 mg PO DAILY@0630 [facility] Last Admin: 01/22/24 06:33 Dose: 20 mg Polyethylene Glycol (Polyethylene Glycol 3350 17 Gm Powd.Pack) 17 gm PO DAILY [facility] Last Admin: 01/22/24 08:37 Dose: 17 gm Senna (Sennosides 8.6 Mg Tablet) 17.2 mg PO BEDTIME [facility] Last Admin: 01/22/24 20:32 Dose: 17.2 mg Sertraline HCl (Sertraline Hcl 100 Mg Tablet) 100 mg PO BID [facility] Last Admin: 01/22/24 20:31 Dose: 100 mg Tamsulosin HCl (Tamsulosin Hcl 0.4 Mg Capsule) 0.4 mg PO BEDTIME [facility] Last Admin: 01/22/24 20:31 Dose: 0.4 mg Trazodone HCl (Trazodone Hcl 50 Mg Tablet) 50 mg PO BEDTIME MRX1 PRN PRN Reason: Insomnia Last Admin: 01/17/24 19:56 Dose: 50 mg Allergies Allergies Allergy/AdvReac Type Severity Reaction Status Date / Time No Known Allergies [NKA] Allergy Unknown NONE Verified 01/05/24 11:31 Assessment & Plan Assessment & Plan (1) Catatonia: Status: Acute Code(s): F06.1 - Catatonic disorder due to known physiological condition (2) Schizoaffective disorder, depressive type: Status: Acute Code(s): F25.1 - Schizoaffective disorder, depressive type (3) Essential (primary) hypertension: Status: Acute Code(s): I10 - Essential (primary) hypertension (4) Diabetes mellitus: Qualifiers: Diabetes mellitus type: type 2 Diabetes mellitus 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 Patient not tolerating combination of clozapine and lorazepam appears overly sedated lethargic remains blunted psychomotor retarded with catatonia. Will lower Ativan to 1 mg 3 times a day lower clozapine to 250 mg hopefully patient will be more alert and we can better tease out catatonia versus medication induced lethargy on top of that. The patient has had a complicated response in the past to ECT. Last year did seem to help him in some years past the patient did have a course of over 10 treatments that did not help with his catatonia and eventually responded to combination of clozapine and lorazepam. stop abilify If patient becomes more alert will try and see if he is able to possibly consent for ECT which he has done in the past there was a lot of negative feedback from a family member which had been difficult for the patient to deal with. There is a court hearing for treatment order and retention scheduled past records in responses extensively reviewed 01/18/24 cont current tx plan improvement noted abilify d/c in context of catatonia monitor response to dec clozapine lower ativan . trying to balance catatonia tx vs oversedation ect remains possible option but pt improved today 01/18 recheck renal, with electrolytes and lithium level. hold lithium given CAMILLE. encouraged fluids. may need IV fluids. 01/22/24 ck creat in am iv fluids if not improved Reason for continued inpatient stay Substantial Risk for: inability to function, rapid decompensation and med/psych decompensation Time Spent With Patient Time: Total time managing care of this patient today ____ minutes.
[2024-01-23] MEDS: Omeprazole 20 MG CAPSULE.DR PO (06:29)
[2024-01-23 08:00] VITALS: BP 110/62; PULSE 72; RESP 18; TEMP 37; O2SAT 98
[2024-01-23] MEDS: Docusate Sodium 100 MG CAPSULE PO ×2 (08:35→21:03)
[2024-01-23] MEDS: cloNIDine HCL 0.1 MG TABLET 0.05 MG PO ×2 (08:35→21:03)
[2024-01-23] MEDS: LORazepam 1 MG TABLET 2 MG PO ×2 (08:35→21:03)
[2024-01-23] MEDS: Sertraline HCL 100 MG TABLET PO ×2 (08:35→21:02)
[2024-01-23] MEDS: polyethylene glycoL 3350 17 GM POWD.PACK PO (08:36)
[2024-01-23] MEDS: metFORMIN HCl 500 MG TABLET PO (08:36)
--- NOTE | 2024-01-23 09:49 | PM.EVENT ---
Event Note Date of Service: 01/23/24 Event Note: Pt still catatonic and not taking enough PO fluids. - add 2L LR due to increasing creatinine. Time Spent With Patient Time: Total time managing care of this patient today ____ minutes.
[2024-01-23] MEDS: Lactated Ringers 1,000 ML 999 ML IV ×2 (10:33→11:52)
[2024-01-23 14:02] LABS: Anion Gap 12 (12-20); Blood Urea Nitrogen 25 mg/dL (9-16); Calcium 8.9 mg/dL (8.4-10.2); Carbon Dioxide 29 mmol/L (22-29); Chloride 107 mmol/L (96-108); Creatinine Clr Calc Pharmacy 70.4; Estimated Glomerular Filt Rate 57; Glucose Random 91 mg/dL (60-115); Sodium 144 mmol/L (135-145)
[2024-01-23] MEDS: LORazepam 2 MG/ML VIAL 1 MG IVPUSH ×2 (14:40→16:44)
--- NOTE | 2024-01-23 16:41 | P.PNPSI_ITS ---
Subjective Subjective Date of Service: 01/22/24 Reason For Visit: catatonia Subjective Notes: Section 7 Healthcare Proxy: Yes Medical Problems Affecting Mental Status: No Interim History: Pt with variable response to lorazepam for catatonia lithium held sec to inc creatinine , was given iv fluids later lorazepam iv push. Today pts HCP paperwork was obtained and spoke with pts hcp his father. Pt was consenting to iv lorazepam also reviewed this with hcp who is aware that pt has catatonia agrees to medication but at this point refuses to consider ect given what he had seen in the past 2011 spoke with hcp regarding more recent ect and response Mental Status Exam Mental Status Exam Patient Appearance: Fatigued Patient Orientation: Person, Place and Situation Level of Consciousness: Awake and Drowsy Patient Behavior: Guarded and Passive Mood Description: Withdrawn, Depressed and Blunted Affect Description: Constricted and Blunted Patient Cognition Impaired: Yes Ability to Follow Directions: Fair Speech Pattern: Spontaneous Speech, Whisper, Delayed and Poor Articulation Hallucinations: Auditory (vague) Delusions: Not Present Thought Process: Distracted and Slowed Thinking Thought Content: positive for [place] and positive for Thought Blocking Abnormal Motor Activity Signs and Symptoms: Psychomotor Retardation Judgement: Poor Judgement and Insight: some inc verbal output Diagnostics Vital Signs (24Hr): Vital Signs - 24 hr 01/22/24 20:00 01/23/24 08:00 Temperature 97.1 F 98.6 F Pulse Rate 60 72 Respiratory Rate 18 18 Blood Pressure 111/57 L 110/62 Pulse Oximetry 96 98 Oxygen Delivery Method Room Air Room Air BMI result Body Mass Index 30.1 Labs 01/05/24 11:49 01/23/24 08:05 Labs: Laboratory Results - last 48 hr 01/17/24 01/22/24 01/23/24 08:14 16:09 08:05 Sodium 141 144 Potassium 3.8 4.0 Chloride 107 107 Carbon Dioxide 28 29 Anion Gap 10 L 12 BUN 29 H 25 H Creatinine 1.67 H 1.29 Estim Creat Clear Calc 54.4 70.4 Estimated GFR 42 57 Random Glucose 96 91 Calcium 9.0 8.9 Total Bilirubin 0.4 AST 18 ALT 10 Alkaline Phosphatase 55 Total Protein 6.3 L Albumin 3.8 Clozapine 353 Norclozapine 196 Imaging Radiology Impressions: ITS Impressions Chest X-Ray 01/07/24 13:27 IMPRESSION: Bronchial wall thickening may be infectious and/or inflammatory in etiology. Electronically signed by: Marianna Torres MD 01/07/2024 03:31 PM EDT RP Medications Medications Current Medications Acetaminophen (Acetaminophen 325 Mg Tablet) 650 mg PO Q6H PRN PRN Reason: Headache/Pain Mild Scale (1-3) Last Admin: 01/12/24 09:03 Dose: 650 mg Al Hydroxide/Mg Hydroxide (Magnesium Hydrox/Alum Hydrox 30 Ml Oral.Susp) 30 ml PO Q6H PRN PRN Reason: Heartburn/Nausea Clonidine HCl (Clonidine Hcl 0.1 Mg Tablet) 0.05 mg PO BID [facility]; Protocol Last Admin: 01/23/24 08:35 Dose: 0.05 mg Clozapine 200 mg/ Clozapine 50 (mg) 250 mg PO DAILY@1930 [facility] Last Admin: 01/22/24 20:30 Dose: 250 mg Docusate Sodium (Docusate Sodium 100 Mg Capsule) 100 mg PO BID [facility] Last Admin: 01/23/24 08:35 Dose: 100 mg Hydroxyzine HCl (Hydroxyzine Hcl 25 Mg Tablet) 25 mg PO Q6H PRN PRN Reason: Anxiety [place] Carbonate ([place] Carbonate 300 Mg Capsule) 300 mg PO BEDTIME [facility] Magnesium Hydroxide (Milk Of Magnesia 30 Ml Oral.Susp) 30 ml PO DAILY PRN PRN Reason: Constipation Last Admin: 01/11/24 12:48 Dose: 30 ml Metformin HCl (Metformin Hcl 500 Mg Tablet) 500 mg PO DAILY [facility] Last Admin: 01/23/24 08:36 Dose: 500 mg Omeprazole (Omeprazole 20 Mg Capsule.Dr) 20 mg PO DAILY@0630 [facility] Last Admin: 01/23/24 06:29 Dose: 20 mg Polyethylene Glycol (Polyethylene Glycol 3350 17 Gm Powd.Pack) 17 gm PO DAILY [facility] Last Admin: 01/23/24 08:36 Dose: 17 gm Senna (Sennosides 8.6 Mg Tablet) 17.2 mg PO BEDTIME [facility] Last Admin: 01/22/24 20:32 Dose: 17.2 mg Sertraline HCl (Sertraline Hcl 100 Mg Tablet) 100 mg PO BID [facility] Last Admin: 01/23/24 08:35 Dose: 100 mg Tamsulosin HCl (Tamsulosin Hcl 0.4 Mg Capsule) 0.4 mg PO BEDTIME [facility] Last Admin: 01/22/24 20:31 Dose: 0.4 mg Trazodone HCl (Trazodone Hcl 50 Mg Tablet) 50 mg PO BEDTIME MRX1 PRN PRN Reason: Insomnia Last Admin: 01/17/24 19:56 Dose: 50 mg Allergies Allergies Allergy/AdvReac Type Severity Reaction Status Date / Time No Known Allergies [NKA] Allergy Unknown NONE Verified 01/05/24 11:31 Assessment & Plan Assessment & Plan (1) Catatonia: Status: Acute Code(s): F06.1 - Catatonic disorder due to known physiological condition (2) Schizoaffective disorder, depressive type: Status: Acute Code(s): F25.1 - Schizoaffective disorder, depressive type (3) Essential (primary) hypertension: Status: Acute Code(s): I10 - Essential (primary) hypertension (4) Diabetes mellitus: Qualifiers: Diabetes mellitus complication status: with hyperglycemia Diabetes mellitus 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 Patient not tolerating combination of clozapine and lorazepam appears overly sedated lethargic remains blunted psychomotor retarded with catatonia. Will lower Ativan to 1 mg 3 times a day lower clozapine to 250 mg hopefully patient will be more alert and we can better tease out catatonia versus medication induced lethargy on top of that. The patient has had a complicated response in the past to ECT. Last year did seem to help him in some years past the patient did have a course of over 10 treatments that did not help with his catatonia and eventually responded to combination of clozapine and lorazepam. stop abilify If patient becomes more alert will try and see if he is able to possibly consent for ECT which he has done in the past there was a lot of negative feedback from a family member which had been difficult for the patient to deal with. There is a court hearing for treatment order and retention scheduled past records in responses extensively reviewed 01/18/24 cont current tx plan improvement noted abilify d/c in context of catatonia monitor response to dec clozapine lower ativan . trying to balance catatonia tx vs oversedation ect remains possible option but pt improved today 01/18 recheck renal, with electrolytes and lithium level. hold lithium given CAMILLE. encouraged fluids. may need IV fluids. 01/22/24 ck creat in am iv fluids if not improved 01/23/24 hcp invoked in chart was invoked when sec 7 filed essentially given iv fluids and donald ivp ck labs in am ect presently on hold father states will sign cv tomm Reason for continued inpatient stay Substantial Risk for: inability to function, rapid decompensation and med/psych decompensation Time Spent With Patient Time: Total time managing care of this patient today ____ minutes.
[2024-01-23 20:00] VITALS: BP 146/75; PULSE 74; RESP 18; TEMP 36.3; O2SAT 97
[2024-01-23] MEDS: Tamsulosin HCL 0.4 MG CAPSULE PO (21:02)
[2024-01-23] MEDS: Sennosides 8.6 MG TABLET 17.2 MG PO (21:02)
[2024-01-23] MEDS: cloZAPine 200 MG, cloZAPine 50 MG 250 MG PO (21:02)
[2024-01-23 21:03] VITALS: BP 146/75
[2024-01-23] MEDS: 0.9 % Sodium Chloride Flush 3 ML SYRINGE IVFLUSH (23:19)
[2024-01-24] MEDS: Omeprazole 20 MG CAPSULE.DR PO (06:25)
[2024-01-24 08:15] LABS: Anion Gap 10 (12-20); Blood Urea Nitrogen 22 mg/dL (9-16); Calcium 8.9 mg/dL (8.4-10.2); Carbon Dioxide 28 mmol/L (22-29); Chloride 110 mmol/L (96-108); Creatinine Clr Calc Pharmacy 66.3; Estimated Glomerular Filt Rate 53; Glucose Random 101 mg/dL (60-115); Potassium 4.1 mmol/L (3.3-5.1); Sodium 144 mmol/L (135-145)
[2024-01-24 09:04] VITALS: BP 115/68; PULSE 66; RESP 16; TEMP 36.1; O2SAT 95
[2024-01-24] MEDS: 0.9 % Sodium Chloride Flush 3 ML SYRINGE IVFLUSH ×2 (09:25→17:24)
[2024-01-24] MEDS: LORazepam 1 MG TABLET 2 MG PO ×3 (09:28→20:36)
[2024-01-24] MEDS: cloNIDine HCL 0.1 MG TABLET 0.05 MG PO ×2 (09:28→20:37)
[2024-01-24] MEDS: Sertraline HCL 100 MG TABLET PO ×2 (09:28→20:36)
[2024-01-24] MEDS: Docusate Sodium 100 MG CAPSULE PO ×2 (09:28→20:37)
[2024-01-24] MEDS: metFORMIN HCl 500 MG TABLET PO (09:28)
[2024-01-24] MEDS: polyethylene glycoL 3350 17 GM POWD.PACK PO (09:30)
[2024-01-24] MEDS: Flu Vacc TS2024-25(6mos up)/PF 0.5 ML SYRINGE IM (10:48)
[2024-01-24 16:34] LABS: Glucose, Whole Blood 106 mg/dL (60-115)
[2024-01-24 20:00] VITALS: BP 127/66; PULSE 64; RESP 17; TEMP 36.8; O2SAT 98
[2024-01-24 20:00] LABS: Glucose, Whole Blood 105 mg/dL (60-115)
[2024-01-24] MEDS: Tamsulosin HCL 0.4 MG CAPSULE PO (20:36)
[2024-01-24] MEDS: cloZAPine 200 MG, cloZAPine 50 MG 250 MG PO (20:36)
[2024-01-24] MEDS: Sennosides 8.6 MG TABLET 17.2 MG PO (20:37)
--- NOTE | 2024-01-24 21:32 | P.PNPSI_ITS ---
Subjective Subjective Date of Service: 01/24/24 Reason For Visit: catatonia Subjective Notes: Conditional Voluntary (signed by HCP) Healthcare Proxy: Yes Interim History: Pt slept most of the night. Improvement in renal function with IV fluids. Speech more spontaneous. He denies constipation- which is ongoing concern with him. He denies SI/HI. He has been visible for meals. Review of Systems Review of Systems Yes Other (patient not answering ROS secondary to catatonic state) Mental Status Exam Mental Status Exam Narrative: disheveled, hospital garb. PMR. poor eye contact. cooperative. speech almost nil, nearly inaudible. thoughts difficult to discern, overtly linear. affect flat. mood, SI/HI/AVH unable to assess (pt made no response to questions). Diagnostics Vital Signs (24Hr): Vital Signs - 24 hr 01/24/24 09:04 01/24/24 20:00 Temperature 97 F 98.3 F Pulse Rate 66 64 Respiratory Rate 16 17 Blood Pressure 115/68 127/66 Pulse Oximetry 95 98 Oxygen Delivery Method Room Air BMI result Body Mass Index 30.1 Labs 01/05/24 11:49 01/24/24 07:46 Labs: Laboratory Results - last 48 hr 01/23/24 01/24/24 01/24/24 08:05 07:46 16:29 Sodium 144 144 Potassium 4.0 4.1 Chloride 107 110 H Carbon Dioxide 29 28 Anion Gap 12 10 L BUN 25 H 22 H Creatinine 1.29 1.37 Estim Creat Clear Calc 70.4 66.3 Estimated GFR 57 53 POC Glucose 106 Random Glucose 91 101 Calcium 8.9 8.9 01/24/24 19:54 Sodium Potassium Chloride Carbon Dioxide Anion Gap BUN Creatinine Estim Creat Clear Calc Estimated GFR POC Glucose 105 Random Glucose Calcium Imaging Radiology Impressions: ITS Impressions Chest X-Ray 01/07/24 13:27 IMPRESSION: Bronchial wall thickening may be infectious and/or inflammatory in etiology. Electronically signed by: Marianna Torres MD 01/07/2024 03:31 PM EDT RP Medications Medications Current Medications Acetaminophen (Acetaminophen 325 Mg Tablet) 650 mg PO Q6H PRN PRN Reason: Headache/Pain Mild Scale (1-3) Last Admin: 01/12/24 09:03 Dose: 650 mg Al Hydroxide/Mg Hydroxide (Magnesium Hydrox/Alum Hydrox 30 Ml Oral.Susp) 30 ml PO Q6H PRN PRN Reason: Heartburn/Nausea Clonidine HCl (Clonidine Hcl 0.1 Mg Tablet) 0.05 mg PO BID [facility]; Protocol Last Admin: 01/24/24 20:37 Dose: 0.05 mg Clozapine 200 mg/ Clozapine 50 (mg) 250 mg PO DAILY@1930 [facility] Last Admin: 01/24/24 20:36 Dose: 250 mg Docusate Sodium (Docusate Sodium 100 Mg Capsule) 100 mg PO BID [facility] Last Admin: 01/24/24 20:37 Dose: 100 mg Glucose (Glucose Gel 15 Gm Gel..Gram.) 15 gm PO Q15M PRN; Protocol PRN Reason: per Hypoglycemia Standing Ord. Hydroxyzine HCl (Hydroxyzine Hcl 25 Mg Tablet) 25 mg PO Q6H PRN PRN Reason: Anxiety Dextrose (D10) 250 mls @ 750 mls/hr IV Q15M PRN; Protocol PRN Reason: per Hypoglycemia Standing Ord. Insulin Human Lispro (Insulin Lispro 100 Unit/Ml 3 Ml Vial) 0 unit SUBCUT QIDACHS [facility]; Protocol Last Admin: 01/24/24 20:40 Dose: Not Given Lorazepam (Lorazepam 1 Mg Tablet) 2 mg PO TID [facility] Last Admin: 01/24/24 20:36 Dose: 2 mg Magnesium Hydroxide (Milk Of Magnesia 30 Ml Oral.Susp) 30 ml PO DAILY PRN PRN Reason: Constipation Last Admin: 01/11/24 12:48 Dose: 30 ml Omeprazole (Omeprazole 20 Mg Capsule.Dr) 20 mg PO DAILY@0630 [facility] Last Admin: 01/24/24 06:25 Dose: 20 mg Polyethylene Glycol (Polyethylene Glycol 3350 17 Gm Powd.Pack) 17 gm PO DAILY [facility] Last Admin: 01/24/24 09:30 Dose: 17 gm Senna (Sennosides 8.6 Mg Tablet) 17.2 mg PO BEDTIME [facility] Last Admin: 01/24/24 20:37 Dose: 17.2 mg Sertraline HCl (Sertraline Hcl 100 Mg Tablet) 100 mg PO BID [facility] Last Admin: 01/24/24 20:36 Dose: 100 mg Tamsulosin HCl (Tamsulosin Hcl 0.4 Mg Capsule) 0.4 mg PO BEDTIME [facility] Last Admin: 01/24/24 20:36 Dose: 0.4 mg Trazodone HCl (Trazodone Hcl 50 Mg Tablet) 50 mg PO BEDTIME MRX1 PRN PRN Reason: Insomnia Last Admin: 01/17/24 19:56 Dose: 50 mg Allergies Allergies Allergy/AdvReac Type Severity Reaction Status Date / Time No Known Allergies [NKA] Allergy Unknown NONE Verified 01/05/24 11:31 Assessment & Plan Assessment & Plan (1) Catatonia: Status: Acute Code(s): F06.1 - Catatonic disorder due to known physiological condition (2) Schizoaffective disorder, depressive type: Status: Acute Code(s): F25.1 - Schizoaffective disorder, depressive type (3) Essential (primary) hypertension: Status: Acute Code(s): I10 - Essential (primary) hypertension (4) Diabetes mellitus: Qualifiers: Diabetes mellitus complication status: with hyperglycemia Diabetes mellitus 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 Patient not tolerating combination of clozapine and lorazepam appears overly sedated lethargic remains blunted psychomotor retarded with catatonia. Will lower Ativan to 1 mg 3 times a day lower clozapine to 250 mg hopefully patient will be more alert and we can better tease out catatonia versus medication induced lethargy on top of that. The patient has had a complicated response in the past to ECT. Last year did seem to help him in some years past the patient did have a course of over 10 treatments that did not help with his catatonia and eventually responded to combination of clozapine and lorazepam. stop abilify If patient becomes more alert will try and see if he is able to possibly consent for ECT which he has done in the past there was a lot of negative feedback from a family member which had been difficult for the patient to deal with. There is a court hearing for treatment order and retention scheduled past records in responses extensively reviewed 01/18/24 cont current tx plan improvement noted abilify d/c in context of catatonia monitor response to dec clozapine lower ativan . trying to balance catatonia tx vs oversedation ect remains possible option but pt improved today 01/18 recheck renal, with electrolytes and lithium level. hold lithium given CAMILLE. encouraged fluids. may need IV fluids. 01/22/24 ck creat in am iv fluids if not improved 01/23/24 hcp invoked in chart was invoked when sec 7 filed essentially given iv fluids and donald ivp ck labs in am ect presently on hold father states will sign cv tomm 01/23 renal function improved with IV fluids- will remove IV. continue current meds. lithium stopped. Reason for continued inpatient stay Substantial Risk for: inability to function Time Spent With Patient Time: Total time managing care of this patient today ____ minutes.
[2024-01-25] MEDS: Omeprazole 20 MG CAPSULE.DR PO (05:15)
[2024-01-25 06:42] LABS: Glucose, Whole Blood 110 mg/dL (60-115)
[2024-01-25 07:00] VITALS: BMI 30.5
[2024-01-25 08:00] VITALS: BP 123/68; PULSE 72; RESP 14; TEMP 36.5; O2SAT 99
[2024-01-25] MEDS: polyethylene glycoL 3350 17 GM POWD.PACK PO (09:00)
[2024-01-25] MEDS: LORazepam 1 MG TABLET 2 MG PO ×3 (09:02→21:15)
[2024-01-25] MEDS: cloNIDine HCL 0.1 MG TABLET 0.05 MG PO ×2 (09:02→21:15)
[2024-01-25] MEDS: Sertraline HCL 100 MG TABLET PO ×2 (09:03→21:15)
[2024-01-25] MEDS: Docusate Sodium 100 MG CAPSULE PO ×2 (09:03→21:16)
[2024-01-25 12:46] LABS: Glucose, Whole Blood 159 mg/dL (60-115)
[2024-01-25] MEDS: Insulin Lispro 100 UNIT/ML 3 ML VIAL SUBCUT (12:49)
--- NOTE | 2024-01-25 14:21 | HO.PSYCHPN ---
Subjective Subjective Date of Service: 01/25/24 Reason For Visit: catatonia Subjective Notes: Conditional Voluntary Healthcare Proxy: Yes Interim History: The nursing staff reported the patient had been less catatonic. His father who is the healthcare proxy signed him in. Last days he was with Ativan IV with some improvement. On interview the patient remains internally preoccupied but he is more visible in the unit. Mental Status Exam Mental Status Exam Patient Appearance: Well Grooomed and Appropriate Patient Orientation: Person and Situation Level of Consciousness: Awake and Appropriate Patient Behavior: Guarded and Passive Mood Description: Withdrawn Affect Description: Constricted Patient Cognition Impaired: Yes Ability to Follow Directions: Good Speech Pattern: Clear Hallucinations: None Delusions: Not Present Thought Process: Distracted and Slowed Thinking Thought Content: positive for [place] and positive for Poverty of Content Judgement: Fair Diagnostics Vital Signs (24Hr): Vital Signs - 24 hr 01/24/24 20:00 01/25/24 08:00 Temperature 98.3 F 97.7 F Pulse Rate 64 72 Respiratory Rate 17 14 Blood Pressure 127/66 123/68 Pulse Oximetry 98 99 Oxygen Delivery Method Room Air BMI result Body Mass Index 30.1 Labs 01/05/24 11:49 01/24/24 07:46 Labs: Laboratory Results - last 48 hr 01/24/24 01/24/24 01/24/24 07:46 16:29 19:54 Sodium 144 Potassium 4.1 Chloride 110 H Carbon Dioxide 28 Anion Gap 10 L BUN 22 H Creatinine 1.37 Estim Creat Clear Calc 66.3 Estimated GFR 53 POC Glucose 106 105 Random Glucose 101 Calcium 8.9 01/25/24 01/25/24 06:36 12:42 Sodium Potassium Chloride Carbon Dioxide Anion Gap BUN Creatinine Estim Creat Clear Calc Estimated GFR POC Glucose 110 159 H Random Glucose Calcium Imaging Radiology Impressions: ITS Impressions Chest X-Ray 01/07/24 13:27 IMPRESSION: Bronchial wall thickening may be infectious and/or inflammatory in etiology. Electronically signed by: Marianna Torres MD 01/07/2024 03:31 PM EDT RP Medications Medications Current Medications Acetaminophen (Acetaminophen 325 Mg Tablet) 650 mg PO Q6H PRN PRN Reason: Headache/Pain Mild Scale (1-3) Last Admin: 01/12/24 09:03 Dose: 650 mg Al Hydroxide/Mg Hydroxide (Magnesium Hydrox/Alum Hydrox 30 Ml Oral.Susp) 30 ml PO Q6H PRN PRN Reason: Heartburn/Nausea Clonidine HCl (Clonidine Hcl 0.1 Mg Tablet) 0.05 mg PO BID [facility]; Protocol Last Admin: 01/25/24 09:02 Dose: 0.05 mg Clozapine 200 mg/ Clozapine 50 (mg) 250 mg PO DAILY@1930 [facility] Last Admin: 01/24/24 20:36 Dose: 250 mg Docusate Sodium (Docusate Sodium 100 Mg Capsule) 100 mg PO BID [facility] Last Admin: 01/25/24 09:03 Dose: 100 mg Glucose (Glucose Gel 15 Gm Gel..Gram.) 15 gm PO Q15M PRN; Protocol PRN Reason: per Hypoglycemia Standing Ord. Hydroxyzine HCl (Hydroxyzine Hcl 25 Mg Tablet) 25 mg PO Q6H PRN PRN Reason: Anxiety Dextrose (D10) 250 mls @ 750 mls/hr IV Q15M PRN; Protocol PRN Reason: per Hypoglycemia Standing Ord. Insulin Human Lispro (Insulin Lispro 100 Unit/Ml 3 Ml Vial) 0 unit SUBCUT QIDACHS [facility]; Protocol Last Admin: 01/25/24 12:49 Dose: 2 unit Lorazepam (Lorazepam 1 Mg Tablet) 2 mg PO TID [facility] Last Admin: 01/25/24 09:02 Dose: 2 mg Magnesium Hydroxide (Milk Of Magnesia 30 Ml Oral.Susp) 30 ml PO DAILY PRN PRN Reason: Constipation Last Admin: 01/11/24 12:48 Dose: 30 ml Omeprazole (Omeprazole 20 Mg Capsule.Dr) 20 mg PO DAILY@0630 [facility] Last Admin: 01/25/24 05:15 Dose: 20 mg Polyethylene Glycol (Polyethylene Glycol 3350 17 Gm Powd.Pack) 17 gm PO DAILY [facility] Last Admin: 01/25/24 09:00 Dose: 17 gm Senna (Sennosides 8.6 Mg Tablet) 17.2 mg PO BEDTIME [facility] Last Admin: 01/24/24 20:37 Dose: 17.2 mg Sertraline HCl (Sertraline Hcl 100 Mg Tablet) 100 mg PO BID [facility] Last Admin: 01/25/24 09:03 Dose: 100 mg Tamsulosin HCl (Tamsulosin Hcl 0.4 Mg Capsule) 0.4 mg PO BEDTIME [facility] Last Admin: 01/24/24 20:36 Dose: 0.4 mg Trazodone HCl (Trazodone Hcl 50 Mg Tablet) 50 mg PO BEDTIME MRX1 PRN PRN Reason: Insomnia Last Admin: 01/17/24 19:56 Dose: 50 mg Allergies Allergies Allergy/AdvReac Type Severity Reaction Status Date / Time No Known Allergies [NKA] Allergy Unknown NONE Verified 01/05/24 11:31 Assessment & Plan Assessment & Plan (1) Catatonia: Status: Acute Code(s): F06.1 - Catatonic disorder due to known physiological condition (2) Schizoaffective disorder, depressive type: Status: Acute Code(s): F25.1 - Schizoaffective disorder, depressive type (3) Essential (primary) hypertension: Status: Acute Code(s): I10 - Essential (primary) hypertension (4) Diabetes mellitus: Qualifiers: Diabetes mellitus type: type 2 Diabetes mellitus [facility] insulin use: without [facility] use Diabetes mellitus complication status: with hyperglycemia Qualified Code(s): E11.65 - Type 2 diabetes mellitus with hyperglycemia Status: Acute Code(s): E11.9 - Type 2 diabetes mellitus without complications (5) Sleep apnea: Status: Acute Code(s): G47.30 - Sleep apnea, unspecified Plan 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 Patient not tolerating combination of clozapine and lorazepam appears overly sedated lethargic remains blunted psychomotor retarded with catatonia. Will lower Ativan to 1 mg 3 times a day lower clozapine to 250 mg hopefully patient will be more alert and we can better tease out catatonia versus medication induced lethargy on top of that. The patient has had a complicated response in the past to ECT. Last year did seem to help him in some years past the patient did have a course of over 10 treatments that did not help with his catatonia and eventually responded to combination of clozapine and lorazepam. stop abilify If patient becomes more alert will try and see if he is able to possibly consent for ECT which he has done in the past there was a lot of negative feedback from a family member which had been difficult for the patient to deal with. There is a court hearing for treatment order and retention scheduled past records in responses extensively reviewed 01/18/24 cont current tx plan improvement noted abilify d/c in context of catatonia monitor response to dec clozapine lower ativan . trying to balance catatonia tx vs oversedation ect remains possible option but pt improved today Plan 1. Continue with Clozaril and Ativan. 2. We will reassess the possibility of ECT with his father. Reason for continued inpatient stay Substantial Risk for: inability to function, rapid decompensation and med/psych decompensation Time Spent With Patient Time: Total time managing care of this patient today __20__ minutes.
[2024-01-25 16:54] LABS: Glucose, Whole Blood 84 mg/dL (60-115)
[2024-01-25 21:08] VITALS: BP 132/71; PULSE 78; RESP 17; TEMP 36.4; O2SAT 100
[2024-01-25] MEDS: cloZAPine 200 MG, cloZAPine 50 MG 250 MG PO (21:14)
[2024-01-25 21:15] VITALS: BP 132/71
[2024-01-25] MEDS: Tamsulosin HCL 0.4 MG CAPSULE PO (21:15)
[2024-01-25] MEDS: Sennosides 8.6 MG TABLET 17.2 MG PO (21:15)
[2024-01-25 21:29] LABS: Glucose, Whole Blood 118 mg/dL (60-115)
[2024-01-26] MEDS: Omeprazole 20 MG CAPSULE.DR PO (05:47)
[2024-01-26 06:41] LABS: Glucose, Whole Blood 101 mg/dL (60-115)
[2024-01-26 08:00] VITALS: BP 98/48; PULSE 88; RESP 16; TEMP 36.7; O2SAT 98
[2024-01-26 08:08] LABS: Neut%MD 67.4 %; Neutrophils Absolute Auto 3.4 x10*3/uL (2.0-8.3); WBCANC 5.1 X10*3/uL
[2024-01-26] MEDS: Docusate Sodium 100 MG CAPSULE PO ×2 (09:00→21:22)
[2024-01-26] MEDS: LORazepam 1 MG TABLET 2 MG PO ×3 (09:00→21:22)
[2024-01-26 09:01] VITALS: BP 92/48
[2024-01-26] MEDS: Sertraline HCL 100 MG TABLET PO ×2 (09:02→21:20)
[2024-01-26] MEDS: polyethylene glycoL 3350 17 GM POWD.PACK PO (09:02)
--- NOTE | 2024-01-26 11:15 | P.PNPSI_ITS ---
Subjective Subjective Date of Service: 01/26/24 Reason For Visit: catatonia Subjective Notes: Conditional Voluntary Healthcare Proxy: Yes Interim History: The nursing staff reported the patient remains with slow responses, he slept 8 hours. On interview the patient has a very long latency for responses, nonsensical at times. We discussed the case with Dr. Luz apparently is Ativan IM works better for him than the p.o.. Mental Status Exam Mental Status Exam Patient Appearance: Appropriate Patient Orientation: Person Level of Consciousness: Awake Patient Behavior: Guarded and Passive Mood Description: Withdrawn Affect Description: Blunted Patient Cognition Impaired: Yes Ability to Follow Directions: Good Speech Pattern: Impoverished, Delayed and Long Pauses Hallucinations: None Delusions: Ideas of Reference Thought Process: Slowed Thinking Thought Content: positive for [place], positive for Poverty of Content and positive for Thought Blocking Judgement: Poor Diagnostics Vital Signs (24Hr): Vital Signs - 24 hr 01/25/24 21:08 01/25/24 21:15 01/26/24 08:00 Temperature 97.5 F 98.1 F Pulse Rate 78 88 Respiratory Rate 17 16 Blood Pressure 132/71 132/71 98/48 L Pulse Oximetry 100 98 Oxygen Delivery Method Room Air Room Air 01/26/24 09:01 Temperature Pulse Rate Respiratory Rate Blood Pressure 92/48 L Pulse Oximetry Oxygen Delivery Method BMI result Body Mass Index 30.5 Labs 01/05/24 11:49 01/24/24 07:46 Labs: Laboratory Results - last 48 hr 01/24/24 01/24/24 01/25/24 16:29 19:54 06:36 Absolute Neuts (auto) POC Glucose 106 105 110 01/25/24 01/25/24 01/25/24 12:42 16:48 21:13 Absolute Neuts (auto) POC Glucose 159 H 84 118 H 01/26/24 01/26/24 06:33 07:56 Absolute Neuts (auto) 3.4 POC Glucose 101 Imaging Radiology Impressions: ITS Impressions Chest X-Ray 01/07/24 13:27 IMPRESSION: Bronchial wall thickening may be infectious and/or inflammatory in etiology. Electronically signed by: Marianna Torres MD 01/07/2024 03:31 PM EDT Medications Medications Current Medications Acetaminophen (Acetaminophen 325 Mg Tablet) 650 mg PO Q6H PRN PRN Reason: Headache/Pain Mild Scale (1-3) Last Admin: 01/12/24 09:03 Dose: 650 mg Al Hydroxide/Mg Hydroxide (Magnesium Hydrox/Alum Hydrox 30 Ml Oral.Susp) 30 ml PO Q6H PRN PRN Reason: Heartburn/Nausea Clonidine HCl (Clonidine Hcl 0.1 Mg Tablet) 0.05 mg PO BID [facility]; Protocol Last Admin: 01/26/24 09:01 Dose: Not Given Clozapine 200 mg/ Clozapine 50 (mg) 250 mg PO DAILY@1930 [facility] Last Admin: 01/25/24 21:14 Dose: 250 mg Docusate Sodium (Docusate Sodium 100 Mg Capsule) 100 mg PO BID [facility] Last Admin: 01/26/24 09:00 Dose: 100 mg Glucose (Glucose Gel 15 Gm Gel..Gram.) 15 gm PO Q15M PRN; Protocol PRN Reason: per Hypoglycemia Standing Ord. Hydroxyzine HCl (Hydroxyzine Hcl 25 Mg Tablet) 25 mg PO Q6H PRN PRN Reason: Anxiety Dextrose (D10) 250 mls @ 750 mls/hr IV Q15M PRN; Protocol PRN Reason: per Hypoglycemia Standing Ord. Insulin Human Lispro (Insulin Lispro 100 Unit/Ml 3 Ml Vial) 0 unit SUBCUT QIDACHS [facility]; Protocol Last Admin: 01/26/24 08:08 Dose: Not Given Lorazepam (Lorazepam 1 Mg Tablet) 2 mg PO TID [facility] Last Admin: 01/26/24 09:00 Dose: 2 mg Magnesium Hydroxide (Milk Of Magnesia 30 Ml Oral.Susp) 30 ml PO DAILY PRN PRN Reason: Constipation Last Admin: 01/11/24 12:48 Dose: 30 ml Omeprazole (Omeprazole 20 Mg Capsule.Dr) 20 mg PO DAILY@0630 [facility] Last Admin: 01/26/24 05:47 Dose: 20 mg Polyethylene Glycol (Polyethylene Glycol 3350 17 Gm Powd.Pack) 17 gm PO DAILY [facility] Last Admin: 01/26/24 09:02 Dose: 17 gm Senna (Sennosides 8.6 Mg Tablet) 17.2 mg PO BEDTIME [facility] Last Admin: 01/25/24 21:15 Dose: 17.2 mg Sertraline HCl (Sertraline Hcl 100 Mg Tablet) 100 mg PO BID [facility] Last Admin: 01/26/24 09:02 Dose: 100 mg Tamsulosin HCl (Tamsulosin Hcl 0.4 Mg Capsule) 0.4 mg PO BEDTIME [facility] Last Admin: 01/25/24 21:15 Dose: 0.4 mg Trazodone HCl (Trazodone Hcl 50 Mg Tablet) 50 mg PO BEDTIME MRX1 PRN PRN Reason: Insomnia Last Admin: 01/17/24 19:56 Dose: 50 mg Allergies Allergies Allergy/AdvReac Type Severity Reaction Status Date / Time No Known Allergies [NKA] Allergy Unknown NONE Verified 01/05/24 11:31 Assessment & Plan Assessment & Plan (1) Catatonia: Status: Acute Code(s): F06.1 - Catatonic disorder due to known physiological condition (2) Schizoaffective disorder, depressive type: Status: Acute Code(s): F25.1 - Schizoaffective disorder, depressive type (3) Essential (primary) hypertension: Status: Acute Code(s): I10 - Essential (primary) hypertension (4) Diabetes mellitus: Qualifiers: Diabetes mellitus complication status: with hyperglycemia 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 Patient not tolerating combination of clozapine and lorazepam appears overly sedated lethargic remains blunted psychomotor retarded with catatonia. Will lower Ativan to 1 mg 3 times a day lower clozapine to 250 mg hopefully patient will be more alert and we can better tease out catatonia versus medication induced lethargy on top of that. The patient has had a complicated response in the past to ECT. Last year did seem to help him in some years past the patient did have a course of over 10 treatments that did not help with his catatonia and eventually responded to combination of clozapine and lorazepam. stop abilify If patient becomes more alert will try and see if he is able to possibly consent for ECT which he has done in the past there was a lot of negative feedback from a family member which had been difficult for the patient to deal with. There is a court hearing for treatment order and retention scheduled past records in responses extensively reviewed 01/18/24 cont current tx plan improvement noted abilify d/c in context of catatonia monitor response to dec clozapine lower ativan . trying to balance catatonia tx vs oversedation ect remains possible option but pt improved today Plan 1. Continue with Clozaril and Ativan. 2. We will reassess the possibility of ECT with his father. 3. The patient is conditional voluntary by healthcare proxy Reason for continued inpatient stay Substantial Risk for: inability to function, rapid decompensation and med/psych decompensation Time Spent With Patient Time: Total time managing care of this patient today _20___ minutes.
[2024-01-26 11:37] LABS: Glucose, Whole Blood 97 mg/dL (60-115)
[2024-01-26 16:38] LABS: Glucose, Whole Blood 83 mg/dL (60-115)
[2024-01-26 20:00] VITALS: BP 119/58; PULSE 95; RESP 18; TEMP 36.4; O2SAT 95
[2024-01-26] MEDS: cloNIDine HCL 0.1 MG TABLET 0.05 MG PO (21:20)
[2024-01-26] MEDS: cloZAPine 200 MG, cloZAPine 50 MG 250 MG PO (21:20)
[2024-01-26] MEDS: Sennosides 8.6 MG TABLET 17.2 MG PO (21:22)
[2024-01-26] MEDS: Tamsulosin HCL 0.4 MG CAPSULE PO (21:22)
[2024-01-26 21:36] LABS: Glucose, Whole Blood 101 mg/dL (60-115)
[2024-01-27] MEDS: Omeprazole 20 MG CAPSULE.DR PO (06:48)
[2024-01-27 06:59] LABS: Glucose, Whole Blood 108 mg/dL (60-115)
--- NOTE | 2024-01-27 08:07 | HO.PSYCHPN ---
Subjective Subjective Date of Service: 01/27/24 Reason For Visit: catatonia Subjective Notes: Section 7 Interim History: The nursing staff reported the patient remains with slow responses. Sleeping ok. Presents with minimal responses. Catatonia evident with very long latency for responses. Is taking ativan PO along with clozapine Medication Compliance: Yes Side effects from medications: No Attending Groups: No Review of Systems Acute medical concerns: No Review of Systems Review of Systems Yes Other (patient not answering ROS secondary to catatonic state) Mental Status Exam Mental Status Exam Patient Appearance: Appropriate Patient Orientation: Person Level of Consciousness: Awake Patient Behavior: Guarded and Passive Mood Description: Withdrawn Affect Description: Blunted Patient Cognition Impaired: Yes Ability to Follow Directions: Good Speech Pattern: Impoverished, Delayed and Long Pauses Diagnostics Vital Signs (24Hr): Vital Signs - 24 hr 01/26/24 09:01 01/26/24 20:00 Temperature 97.5 F Pulse Rate 95 Respiratory Rate 18 Blood Pressure 92/48 L 119/58 L Pulse Oximetry 95 Oxygen Delivery Method Room Air BMI result Body Mass Index 30.5 Labs 01/05/24 11:49 01/24/24 07:46 Labs: Laboratory Results - last 48 hr 01/25/24 01/25/24 01/25/24 12:42 16:48 21:13 Absolute Neuts (auto) POC Glucose 159 H 84 118 H 01/26/24 01/26/24 01/26/24 06:33 07:56 11:32 Absolute Neuts (auto) 3.4 POC Glucose 101 97 01/26/24 01/26/24 01/27/24 16:33 21:18 06:50 Absolute Neuts (auto) POC Glucose 83 101 108 Imaging Radiology Impressions: ITS Impressions Chest X-Ray 01/07/24 13:27 IMPRESSION: Bronchial wall thickening may be infectious and/or inflammatory in etiology. Electronically signed by: Marianna Torres MD 01/07/2024 03:31 PM EDT RP Medications Medications Current Medications Acetaminophen (Acetaminophen 325 Mg Tablet) 650 mg PO Q6H PRN PRN Reason: Headache/Pain Mild Scale (1-3) Last Admin: 01/12/24 09:03 Dose: 650 mg Al Hydroxide/Mg Hydroxide (Magnesium Hydrox/Alum Hydrox 30 Ml Oral.Susp) 30 ml PO Q6H PRN PRN Reason: Heartburn/Nausea Clonidine HCl (Clonidine Hcl 0.1 Mg Tablet) 0.05 mg PO BID [facility]; Protocol Last Admin: 01/26/24 21:20 Dose: 0.05 mg Clozapine 200 mg/ Clozapine 50 (mg) 250 mg PO DAILY@1930 [facility] Last Admin: 01/26/24 21:20 Dose: 250 mg Docusate Sodium (Docusate Sodium 100 Mg Capsule) 100 mg PO BID [facility] Last Admin: 01/26/24 21:22 Dose: 100 mg Glucose (Glucose Gel 15 Gm Gel..Gram.) 15 gm PO Q15M PRN; Protocol PRN Reason: per Hypoglycemia Standing Ord. Hydroxyzine HCl (Hydroxyzine Hcl 25 Mg Tablet) 25 mg PO Q6H PRN PRN Reason: Anxiety Dextrose (D10) 250 mls @ 750 mls/hr IV Q15M PRN; Protocol PRN Reason: per Hypoglycemia Standing Ord. Insulin Human Lispro (Insulin Lispro 100 Unit/Ml 3 Ml Vial) 0 unit SUBCUT QIDACHS [facility]; Protocol Last Admin: 01/27/24 07:28 Dose: Not Given Lorazepam (Lorazepam 1 Mg Tablet) 2 mg PO TID [facility] Last Admin: 01/26/24 21:22 Dose: 2 mg Magnesium Hydroxide (Milk Of Magnesia 30 Ml Oral.Susp) 30 ml PO DAILY PRN PRN Reason: Constipation Last Admin: 01/11/24 12:48 Dose: 30 ml Omeprazole (Omeprazole 20 Mg Capsule.Dr) 20 mg PO DAILY@0630 [facility] Last Admin: 01/27/24 06:48 Dose: 20 mg Polyethylene Glycol (Polyethylene Glycol 3350 17 Gm Powd.Pack) 17 gm PO DAILY [facility] Last Admin: 01/26/24 09:02 Dose: 17 gm Senna (Sennosides 8.6 Mg Tablet) 17.2 mg PO BEDTIME [facility] Last Admin: 01/26/24 21:22 Dose: 17.2 mg Sertraline HCl (Sertraline Hcl 100 Mg Tablet) 100 mg PO BID [facility] Last Admin: 01/26/24 21:20 Dose: 100 mg Tamsulosin HCl (Tamsulosin Hcl 0.4 Mg Capsule) 0.4 mg PO BEDTIME [facility] Last Admin: 01/26/24 21:22 Dose: 0.4 mg Trazodone HCl (Trazodone Hcl 50 Mg Tablet) 50 mg PO BEDTIME MRX1 PRN PRN Reason: Insomnia Last Admin: 01/17/24 19:56 Dose: 50 mg Allergies Allergies Allergy/AdvReac Type Severity Reaction Status Date / Time No Known Allergies [NKA] Allergy Unknown NONE Verified 01/05/24 11:31 Assessment & Plan Assessment & Plan (1) Catatonia: Status: Acute Code(s): F06.1 - Catatonic disorder due to known physiological condition (2) Schizoaffective disorder, depressive type: Status: Acute Code(s): F25.1 - Schizoaffective disorder, depressive type (3) Essential (primary) hypertension: Status: Acute Code(s): I10 - Essential (primary) hypertension (4) Diabetes mellitus: Qualifiers: Diabetes mellitus complication status: with hyperglycemia Diabetes mellitus intermission coordinator insulin use: without senior living use Diabetes mellitus type: type 2 Qualified Code(s): E11.65 - Type 2 diabetes mellitus with hyperglycemia Status: Acute Code(s): E11.9 - Type 2 diabetes mellitus without complications (5) Sleep apnea: Status: Acute Code(s): G47.30 - Sleep apnea, unspecified Plan 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 Patient not tolerating combination of clozapine and lorazepam appears overly sedated lethargic remains blunted psychomotor retarded with catatonia. Will lower Ativan to 1 mg 3 times a day lower clozapine to 250 mg hopefully patient will be more alert and we can better tease out catatonia versus medication induced lethargy on top of that. The patient has had a complicated response in the past to ECT. Last year did seem to help him in some years past the patient did have a course of over 10 treatments that did not help with his catatonia and eventually responded to combination of clozapine and lorazepam. stop abilify If patient becomes more alert will try and see if he is able to possibly consent for ECT which he has done in the past there was a lot of negative feedback from a family member which had been difficult for the patient to deal with. There is a court hearing for treatment order and retention scheduled past records in responses extensively reviewed 01/18/24 cont current tx plan improvement noted abilify d/c in context of catatonia monitor response to dec clozapine lower ativan . trying to balance catatonia tx vs oversedation ect remains possible option but pt improved today Plan 1. Continue with Clozaril and Ativan. 2. We will reassess the possibility of ECT with his father. 3. The patient is conditional voluntary by healthcare proxy 01/27/24: no changes ie continue as per primary team above Reason for continued inpatient stay Substantial Risk for: inability to function Time Spent With Patient Time: Total time managing care of this patient today ____ minutes.
[2024-01-27 08:15] VITALS: BP 120/68; PULSE 68; RESP 18; TEMP 36.8; O2SAT 96
[2024-01-27] MEDS: cloNIDine HCL 0.1 MG TABLET 0.05 MG PO ×2 (08:49→20:35)
[2024-01-27] MEDS: polyethylene glycoL 3350 17 GM POWD.PACK PO (08:50)
[2024-01-27] MEDS: Docusate Sodium 100 MG CAPSULE PO ×2 (08:50→20:34)
[2024-01-27] MEDS: LORazepam 1 MG TABLET 2 MG PO ×3 (08:50→20:34)
[2024-01-27] MEDS: Sertraline HCL 100 MG TABLET PO ×2 (08:50→20:35)
[2024-01-27 11:17] LABS: Glucose, Whole Blood 99 mg/dL (60-115)
[2024-01-27 16:25] VITALS: BP 117/59
[2024-01-27 16:40] LABS: Glucose, Whole Blood 80 mg/dL (60-115)
[2024-01-27 20:00] VITALS: BP 105/57; PULSE 62; RESP 18; TEMP 36.4; O2SAT 95
[2024-01-27] MEDS: cloZAPine 200 MG, cloZAPine 50 MG 250 MG PO (20:34)
[2024-01-27] MEDS: Tamsulosin HCL 0.4 MG CAPSULE PO (20:34)
[2024-01-27] MEDS: Sennosides 8.6 MG TABLET 17.2 MG PO (20:34)
[2024-01-27 21:36] LABS: Glucose, Whole Blood 99 mg/dL (60-115)
[2024-01-28] MEDS: Omeprazole 20 MG CAPSULE.DR PO (06:24)
[2024-01-28 06:43] LABS: Glucose, Whole Blood 111 mg/dL (60-115)
[2024-01-28 07:39] LABS: Creatinine Clr Calc Pharmacy 61.8; Estimated Glomerular Filt Rate 48
[2024-01-28 08:50] VITALS: BP 127/74; PULSE 69; RESP 18; TEMP 36.8; O2SAT 97
[2024-01-28] MEDS: Sertraline HCL 100 MG TABLET PO ×2 (09:10→21:24)
[2024-01-28] MEDS: cloNIDine HCL 0.1 MG TABLET 0.05 MG PO ×2 (09:10→21:22)
[2024-01-28] MEDS: Docusate Sodium 100 MG CAPSULE PO ×2 (09:10→21:25)
[2024-01-28] MEDS: LORazepam 1 MG TABLET 2 MG PO ×3 (09:10→21:21)
[2024-01-28] MEDS: polyethylene glycoL 3350 17 GM POWD.PACK PO (09:11)
--- NOTE | 2024-01-28 10:21 | P.PNPSI_ITS ---
Subjective Subjective Date of Service: 01/28/24 Reason For Visit: catatonia Interim History: The nursing staff reported the patient remains with slow responses. Sleeping ok. Presents with minimal responses and catatonia evident with very long latency for responses. Is taking ativan PO along with clozapine. Was observed in day area later and eating all of his lunch. Medication Compliance: Yes Side effects from medications: No Attending Groups: No Review of Systems Acute medical concerns: No Review of Systems Review of Systems Yes Other (patient not answering ROS secondary to catatonic state) Mental Status Exam Mental Status Exam Patient Appearance: Appropriate Patient Orientation: Person Level of Consciousness: Awake Patient Behavior: Guarded and Passive Mood Description: Withdrawn Affect Description: Blunted Patient Cognition Impaired: Yes Ability to Follow Directions: Good Speech Pattern: Impoverished, Delayed and Long Pauses Diagnostics Vital Signs (24Hr): Vital Signs - 24 hr 01/27/24 16:25 01/27/24 20:00 Temperature 97.6 F Pulse Rate 62 Respiratory Rate 18 Blood Pressure 117/59 L 105/57 L Pulse Oximetry 95 Oxygen Delivery Method Room Air BMI result Body Mass Index 30.5 Labs 01/05/24 11:49 01/28/24 07:21 Labs: Laboratory Results - last 48 hr 01/26/24 01/26/24 01/26/24 11:32 16:33 21:18 Creatinine Estim Creat Clear Calc Estimated GFR POC Glucose 97 83 101 01/27/24 01/27/24 01/27/24 06:50 11:13 16:36 Creatinine Estim Creat Clear Calc Estimated GFR POC Glucose 108 99 80 01/27/24 01/28/24 01/28/24 21:31 06:25 07:21 Creatinine 1.48 H Estim Creat Clear Calc 61.8 Estimated GFR 48 POC Glucose 99 111 Imaging Radiology Impressions: ITS Impressions Chest X-Ray 01/07/24 13:27 IMPRESSION: Bronchial wall thickening may be infectious and/or inflammatory in etiology. Electronically signed by: Marianna Torres MD 01/07/2024 03:31 PM EDT Medications Medications Current Medications Acetaminophen (Acetaminophen 325 Mg Tablet) 650 mg PO Q6H PRN PRN Reason: Headache/Pain Mild Scale (1-3) Last Admin: 01/12/24 09:03 Dose: 650 mg Al Hydroxide/Mg Hydroxide (Magnesium Hydrox/Alum Hydrox 30 Ml Oral.Susp) 30 ml PO Q6H PRN PRN Reason: Heartburn/Nausea Clonidine HCl (Clonidine Hcl 0.1 Mg Tablet) 0.05 mg PO BID [facility]; Protocol Last Admin: 01/28/24 09:10 Dose: 0.05 mg Clozapine 200 mg/ Clozapine 50 (mg) 250 mg PO DAILY@1930 [facility] Last Admin: 01/27/24 20:34 Dose: 250 mg Docusate Sodium (Docusate Sodium 100 Mg Capsule) 100 mg PO BID [facility] Last Admin: 01/28/24 09:10 Dose: 100 mg Glucose (Glucose Gel 15 Gm Gel..Gram.) 15 gm PO Q15M PRN; Protocol PRN Reason: per Hypoglycemia Standing Ord. Hydroxyzine HCl (Hydroxyzine Hcl 25 Mg Tablet) 25 mg PO Q6H PRN PRN Reason: Anxiety Dextrose (D10) 250 mls @ 750 mls/hr IV Q15M PRN; Protocol PRN Reason: per Hypoglycemia Standing Ord. Insulin Human Lispro (Insulin Lispro 100 Unit/Ml 3 Ml Vial) 0 unit SUBCUT QIDACHS [facility]; Protocol Last Admin: 01/28/24 08:33 Dose: Not Given Lorazepam (Lorazepam 1 Mg Tablet) 2 mg PO TID [facility] Last Admin: 01/28/24 09:10 Dose: 2 mg Magnesium Hydroxide (Milk Of Magnesia 30 Ml Oral.Susp) 30 ml PO DAILY PRN PRN Reason: Constipation Last Admin: 01/11/24 12:48 Dose: 30 ml Omeprazole (Omeprazole 20 Mg Capsule.Dr) 20 mg PO DAILY@0630 [facility] Last Admin: 01/28/24 06:24 Dose: 20 mg Polyethylene Glycol (Polyethylene Glycol 3350 17 Gm Powd.Pack) 17 gm PO DAILY [facility] Last Admin: 01/28/24 09:11 Dose: 17 gm Senna (Sennosides 8.6 Mg Tablet) 17.2 mg PO BEDTIME [facility] Last Admin: 01/27/24 20:34 Dose: 17.2 mg Sertraline HCl (Sertraline Hcl 100 Mg Tablet) 100 mg PO BID [facility] Last Admin: 01/28/24 09:10 Dose: 100 mg Tamsulosin HCl (Tamsulosin Hcl 0.4 Mg Capsule) 0.4 mg PO BEDTIME [facility] Last Admin: 01/27/24 20:34 Dose: 0.4 mg Trazodone HCl (Trazodone Hcl 50 Mg Tablet) 50 mg PO BEDTIME MRX1 PRN PRN Reason: Insomnia Last Admin: 01/17/24 19:56 Dose: 50 mg Allergies Allergies Allergy/AdvReac Type Severity Reaction Status Date / Time No Known Allergies [NKA] Allergy Unknown NONE Verified 01/05/24 11:31 Assessment & Plan Assessment & Plan (1) Catatonia: Status: Acute Code(s): F06.1 - Catatonic disorder due to known physiological condition (2) Schizoaffective disorder, depressive type: Status: Acute Code(s): F25.1 - Schizoaffective disorder, depressive type (3) Essential (primary) hypertension: Status: Acute Code(s): I10 - Essential (primary) hypertension (4) Diabetes mellitus: Qualifiers: Diabetes mellitus complication status: with hyperglycemia Diabetes mellitus halfway insulin use: without halfway use Diabetes mellitus type: t ype 2 Qualified Code(s): E11.65 - Type 2 diabetes mellitus with hyperglycemia Status: Acute Code(s): E11.9 - Type 2 diabetes mellitus without complications (5) Sleep apnea: Status: Acute Code(s): G47.30 - Sleep apnea, unspecified Plan 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 Patient not tolerating combination of clozapine and lorazepam appears overly sedated lethargic remains blunted psychomotor retarded with catatonia. Will lower Ativan to 1 mg 3 times a day lower clozapine to 250 mg hopefully patient will be more alert and we can better tease out catatonia versus medication induced lethargy on top of that. The patient has had a complicated response in the past to ECT. Last year did seem to help him in some years past the patient did have a course of over 10 treatments that did not help with his catatonia and eventually responded to combination of clozapine and lorazepam. stop abilify If patient becomes more alert will try and see if he is able to possibly consent for ECT which he has done in the past there was a lot of negative feedback from a family member which had been difficult for the patient to deal with. There is a court hearing for treatment order and retention scheduled past records in responses extensively reviewed 01/18/24 cont current tx plan improvement noted abilify d/c in context of catatonia monitor response to dec clozapine lower ativan . trying to balance catatonia tx vs oversedation ect remains possible option but pt improved today Plan 1. Continue with Clozaril and Ativan. 2. We will reassess the possibility of ECT with his father. 3. The patient is conditional voluntary by healthcare proxy 01/28/24: no changes ie continue as per primary team above Reason for continued inpatient stay Substantial Risk for: inability to function Time Spent With Patient Time: Total time managing care of this patient today ____ minutes.
[2024-01-28 11:36] LABS: Glucose, Whole Blood 93 mg/dL (60-115)
[2024-01-28 20:00] VITALS: BP 117/64; PULSE 84; RESP 16; TEMP 36.8; O2SAT 94
[2024-01-28 20:00] LABS: Glucose, Whole Blood 123 mg/dL (60-115)
[2024-01-28] MEDS: cloZAPine 200 MG, cloZAPine 50 MG 250 MG PO (21:21)
[2024-01-28 21:22] VITALS: BP 117/64
[2024-01-28] MEDS: Sennosides 8.6 MG TABLET 17.2 MG PO (21:24)
[2024-01-28] MEDS: Tamsulosin HCL 0.4 MG CAPSULE PO (21:25)
[2024-01-29] MEDS: Omeprazole 20 MG CAPSULE.DR PO (06:24)
[2024-01-29 06:41] LABS: Glucose, Whole Blood 109 mg/dL (60-115)
[2024-01-29 08:00] VITALS: BP 127/55; PULSE 72; RESP 16; TEMP 37.1; O2SAT 97
[2024-01-29] MEDS: Docusate Sodium 100 MG CAPSULE PO ×2 (09:25→20:52)
[2024-01-29] MEDS: Sertraline HCL 100 MG TABLET PO ×2 (09:26→20:53)
[2024-01-29] MEDS: cloNIDine HCL 0.1 MG TABLET 0.05 MG PO ×2 (09:26→20:50)
[2024-01-29] MEDS: LORazepam 1 MG TABLET 2 MG PO ×3 (09:27→20:49)
[2024-01-29] MEDS: polyethylene glycoL 3350 17 GM POWD.PACK PO (09:28)
--- NOTE | 2024-01-29 15:18 | HO.PSYCHPN ---
Subjective Subjective Date of Service: 01/29/24 Reason For Visit: catatonia Subjective Notes: Conditional Voluntary Healthcare Proxy: Yes Interim History: The nursing staff reported the patient had been isolative in his room he slept 8 hours. On interview the patient remains hypoactive, with delayed response. His father signed the conditional voluntary but he does not want ECT so we will continue with benzodiazepines. Mental Status Exam Mental Status Exam Patient Appearance: Appropriate Patient Orientation: Person Level of Consciousness: Awake and Obtunded Patient Behavior: Guarded and Passive Mood Description: Blunted Affect Description: Calm Patient Cognition Impaired: Yes Ability to Follow Directions: Fair Speech Pattern: Clear Hallucinations: None Delusions: Not Present Thought Process: Distracted and Slowed Thinking Thought Content: positive for [place] and positive for Poverty of Content Judgement: Poor Diagnostics Vital Signs (24Hr): Vital Signs - 24 hr 01/28/24 20:00 01/28/24 21:22 01/29/24 08:00 Temperature 98.3 F 98.7 F Pulse Rate 84 72 Respiratory Rate 16 16 Blood Pressure 117/64 117/64 127/55 L Pulse Oximetry 94 97 Oxygen Delivery Method Room Air Room Air BMI result Body Mass Index 30.5 Labs 01/05/24 11:49 01/28/24 07:21 Labs: Laboratory Results - last 48 hr 01/27/24 01/27/24 01/28/24 16:36 21:31 06:25 Creatinine Estim Creat Clear Calc Estimated GFR POC Glucose 80 99 111 01/28/24 01/28/24 01/28/24 07:21 11:32 19:53 Creatinine 1.48 H Estim Creat Clear Calc 61.8 Estimated GFR 48 POC Glucose 93 123 H 01/29/24 06:32 Creatinine Estim Creat Clear Calc Estimated GFR POC Glucose 109 Imaging Radiology Impressions: ITS Impressions Chest X-Ray 01/07/24 13:27 IMPRESSION: Bronchial wall thickening may be infectious and/or inflammatory in etiology. Electronically signed by: Marianna Torres MD 01/07/2024 03:31 PM EDT Medications Medications Current Medications Acetaminophen (Acetaminophen 325 Mg Tablet) 650 mg PO Q6H PRN PRN Reason: Headache/Pain Mild Scale (1-3) Last Admin: 01/12/24 09:03 Dose: 650 mg Al Hydroxide/Mg Hydroxide (Magnesium Hydrox/Alum Hydrox 30 Ml Oral.Susp) 30 ml PO Q6H PRN PRN Reason: Heartburn/Nausea Clonidine HCl (Clonidine Hcl 0.1 Mg Tablet) 0.05 mg PO BID [facility]; Protocol Last Admin: 01/29/24 09:26 Dose: 0.05 mg Clozapine 200 mg/ Clozapine 50 (mg) 250 mg PO DAILY@1930 [facility] Last Admin: 01/28/24 21:21 Dose: 250 mg Docusate Sodium (Docusate Sodium 100 Mg Capsule) 100 mg PO BID [facility] Last Admin: 01/29/24 09:25 Dose: 100 mg Glucose (Glucose Gel 15 Gm Gel..Gram.) 15 gm PO Q15M PRN; Protocol PRN Reason: per Hypoglycemia Standing Ord. Hydroxyzine HCl (Hydroxyzine Hcl 25 Mg Tablet) 25 mg PO Q6H PRN PRN Reason: Anxiety Dextrose (D10) 250 mls @ 750 mls/hr IV Q15M PRN; Protocol PRN Reason: per Hypoglycemia Standing Ord. Insulin Human Lispro (Insulin Lispro 100 Unit/Ml 3 Ml Vial) 0 unit SUBCUT DAILY [facility]; Protocol Last Admin: 01/29/24 09:28 Dose: Not Given Lorazepam (Lorazepam 1 Mg Tablet) 2 mg PO TID [facility] Last Admin: 01/29/24 14:30 Dose: 2 mg Magnesium Hydroxide (Milk Of Magnesia 30 Ml Oral.Susp) 30 ml PO DAILY PRN PRN Reason: Constipation Last Admin: 01/11/24 12:48 Dose: 30 ml Omeprazole (Omeprazole 20 Mg Capsule.Dr) 20 mg PO DAILY@0630 [facility] Last Admin: 01/29/24 06:24 Dose: 20 mg Polyethylene Glycol (Polyethylene Glycol 3350 17 Gm Powd.Pack) 17 gm PO DAILY [facility] Last Admin: 01/29/24 09:28 Dose: 17 gm Senna (Sennosides 8.6 Mg Tablet) 17.2 mg PO BEDTIME [facility] Last Admin: 01/28/24 21:24 Dose: 17.2 mg Sertraline HCl (Sertraline Hcl 100 Mg Tablet) 100 mg PO BID [facility] Last Admin: 01/29/24 09:26 Dose: 100 mg Tamsulosin HCl (Tamsulosin Hcl 0.4 Mg Capsule) 0.4 mg PO BEDTIME [facility] Last Admin: 01/28/24 21:25 Dose: 0.4 mg Trazodone HCl (Trazodone Hcl 50 Mg Tablet) 50 mg PO BEDTIME MRX1 PRN PRN Reason: Insomnia Last Admin: 01/17/24 19:56 Dose: 50 mg Allergies Allergies Allergy/AdvReac Type Severity Reaction Status Date / Time No Known Allergies [NKA] Allergy Unknown NONE Verified 01/05/24 11:31 Assessment & Plan Assessment & Plan (1) Catatonia: Status: Acute Code(s): F06.1 - Catatonic disorder due to known physiological condition (2) Schizoaffective disorder, depressive type: Status: Acute Code(s): F25.1 - Schizoaffective disorder, depressive type (3) Essential (primary) hypertension: Status: Acute Code(s): I10 - Essential (primary) hypertension (4) Diabetes mellitus: Qualifiers: Diabetes mellitus complication status: with hyperglycemia Diabetes mellitus prison insulin use: without prison use Diabetes mellitus type: type 2 Qualified Code(s): E11.65 - Type 2 diabetes mellitus with hyperglycemia Status: Acute Code(s): E11.9 - Type 2 diabetes mellitus without complications (5) Sleep apnea: Status: Acute Code(s): G47.30 - Sleep apnea, unspecified Plan 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 Patient not tolerating combination of clozapine and lorazepam appears overly sedated lethargic remains blunted psychomotor retarded with catatonia. Will lower Ativan to 1 mg 3 times a day lower clozapine to 250 mg hopefully patient will be more alert and we can better tease out catatonia versus medication induced lethargy on top of that. The patient has had a complicated response in the past to ECT. Last year did seem to help him in some years past the patient did have a course of over 10 treatments that did not help with his catatonia and eventually responded to combination of clozapine and lorazepam. stop abilify If patient becomes more alert will try and see if he is able to possibly consent for ECT which he has done in the past there was a lot of negative feedback from a family member which had been difficult for the patient to deal with. There is a court hearing for treatment order and retention scheduled past records in responses extensively reviewed 01/18/24 cont current tx plan improvement noted abilify d/c in context of catatonia monitor response to dec clozapine lower ativan . trying to balance catatonia tx vs oversedation ect remains possible option but pt improved today Plan 1. Continue with Clozaril and Ativan. 2. We will reassess the possibility of ECT with his father. His father has adamantly refused this treatment option. 3. The patient is conditional voluntary by healthcare proxy 4. The patient remains with some catatonic symptoms but slightly better. We will wait. Reason for continued inpatient stay Substantial Risk for: inability to function, rapid decompensation and med/psych decompensation Time Spent With Patient Time: Total time managing care of this patient today _20___ minutes.
[2024-01-29 20:00] VITALS: BP 87/57; PULSE 97; RESP 16; TEMP 36.5; O2SAT 100
[2024-01-29 20:12] LABS: Glucose, Whole Blood 148 mg/dL (60-115)
[2024-01-29] MEDS: cloZAPine 200 MG, cloZAPine 50 MG 250 MG PO (20:49)
[2024-01-29 20:50] VITALS: BP 118/76
[2024-01-29] MEDS: Sennosides 8.6 MG TABLET 17.2 MG PO (20:52)
[2024-01-29] MEDS: Tamsulosin HCL 0.4 MG CAPSULE PO (20:53)
[2024-01-30] MEDS: Omeprazole 20 MG CAPSULE.DR PO (06:35)
[2024-01-30 06:49] LABS: Glucose, Whole Blood 109 mg/dL (60-115)
[2024-01-30 09:28] VITALS: BP 120/68; PULSE 79; RESP 15; TEMP 36.7; O2SAT 95
[2024-01-30] MEDS: polyethylene glycoL 3350 17 GM POWD.PACK PO (09:29)
[2024-01-30] MEDS: cloNIDine HCL 0.1 MG TABLET 0.05 MG PO ×2 (09:30→20:45)
[2024-01-30] MEDS: Docusate Sodium 100 MG CAPSULE PO ×2 (09:30→20:47)
[2024-01-30] MEDS: Sertraline HCL 100 MG TABLET PO ×2 (09:30→20:47)
[2024-01-30] MEDS: LORazepam 1 MG TABLET 2 MG PO ×3 (09:30→20:44)
--- NOTE | 2024-01-30 13:49 | P.PNPSI_ITS ---
Subjective Subjective Date of Service: 01/30/24 Reason For Visit: catatonia Subjective Notes: Conditional Voluntary Interim History: The nursing staff reported the patient had been compliant with treatment, he came out today in the morning. Today interview the patient was slightly more awake and alert. Still catatonic Mental Status Exam Mental Status Exam Patient Appearance: Appropriate Patient Orientation: Person and Situation Level of Consciousness: Awake and Appropriate Patient Behavior: Guarded and Passive Mood Description: Withdrawn Affect Description: Constricted Patient Cognition Impaired: Yes Ability to Follow Directions: Good Speech Pattern: Clear Hallucinations: None Delusions: Not Present Thought Process: Distracted and Slowed Thinking Thought Content: positive for Armstrong and positive for Poverty of Content Judgement: Fair Diagnostics Vital Signs (24Hr): Vital Signs - 24 hr 01/29/24 20:00 01/29/24 20:50 01/30/24 09:28 Temperature 97.7 F 98.1 F Pulse Rate 97 79 Respiratory Rate 16 15 Blood Pressure 87/57 L 118/76 120/68 Pulse Oximetry 100 95 Oxygen Delivery Method Room Air Room Air BMI result Body Mass Index 30.5 Labs 01/05/24 11:49 01/28/24 07:21 Labs: Laboratory Results - last 48 hr 01/28/24 01/29/24 01/29/24 19:53 06:32 19:56 POC Glucose 123 H 109 148 H 01/30/24 06:34 POC Glucose 109 Imaging Radiology Impressions: ITS Impressions Chest X-Ray 01/07/24 13:27 IMPRESSION: Bronchial wall thickening may be infectious and/or inflammatory in etiology. Electronically signed by: Marianna Torres MD 01/07/2024 03:31 PM EDT Medications Medications Current Medications Acetaminophen (Acetaminophen 325 Mg Tablet) 650 mg PO Q6H PRN PRN Reason: Headache/Pain Mild Scale (1-3) Last Admin: 01/12/24 09:03 Dose: 650 mg Al Hydroxide/Mg Hydroxide (Magnesium Hydrox/Alum Hydrox 30 Ml Oral.Susp) 30 ml PO Q6H PRN PRN Reason: Heartburn/Nausea Clonidine HCl (Clonidine Hcl 0.1 Mg Tablet) 0.05 mg PO BID [facility]; Protocol Last Admin: 01/30/24 09:30 Dose: 0.05 mg Clozapine 200 mg/ Clozapine 50 (mg) 250 mg PO DAILY@1930 [facility] Last Admin: 01/29/24 20:49 Dose: 250 mg Docusate Sodium (Docusate Sodium 100 Mg Capsule) 100 mg PO BID [facility] Last Admin: 01/30/24 09:30 Dose: 100 mg Glucose (Glucose Gel 15 Gm Gel..Gram.) 15 gm PO Q15M PRN; Protocol PRN Reason: per Hypoglycemia Standing Ord. Hydroxyzine HCl (Hydroxyzine Hcl 25 Mg Tablet) 25 mg PO Q6H PRN PRN Reason: Anxiety Dextrose (D10) 250 mls @ 750 mls/hr IV Q15M PRN; Protocol PRN Reason: per Hypoglycemia Standing Ord. Insulin Human Lispro (Insulin Lispro 100 Unit/Ml 3 Ml Vial) 0 unit SUBCUT DAILY [facility]; Protocol Last Admin: 01/30/24 09:31 Dose: Not Given Lorazepam (Lorazepam 1 Mg Tablet) 2 mg PO TID [facility] Last Admin: 01/30/24 09:30 Dose: 2 mg Magnesium Hydroxide (Milk Of Magnesia 30 Ml Oral.Susp) 30 ml PO DAILY PRN PRN Reason: Constipation Last Admin: 01/11/24 12:48 Dose: 30 ml Omeprazole (Omeprazole 20 Mg Capsule.Dr) 20 mg PO DAILY@0630 [facility] Last Admin: 01/30/24 06:35 Dose: 20 mg Polyethylene Glycol (Polyethylene Glycol 3350 17 Gm Powd.Pack) 17 gm PO DAILY [facility] Last Admin: 01/30/24 09:29 Dose: 17 gm Senna (Sennosides 8.6 Mg Tablet) 17.2 mg PO BEDTIME [facility] Last Admin: 01/29/24 20:52 Dose: 17.2 mg Sertraline HCl (Sertraline Hcl 100 Mg Tablet) 100 mg PO BID [facility] Last Admin: 01/30/24 09:30 Dose: 100 mg Tamsulosin HCl (Tamsulosin Hcl 0.4 Mg Capsule) 0.4 mg PO BEDTIME [facility] Last Admin: 01/29/24 20:53 Dose: 0.4 mg Trazodone HCl (Trazodone Hcl 50 Mg Tablet) 50 mg PO BEDTIME MRX1 PRN PRN Reason: Insomnia Last Admin: 01/17/24 19:56 Dose: 50 mg Allergies Allergies Allergy/AdvReac Type Severity Reaction Status Date / Time No Known Allergies [NKA] Allergy Unknown NONE Verified 01/05/24 11:31 Assessment & Plan Assessment & Plan (1) Catatonia: Status: Acute Code(s): F06.1 - Catatonic disorder due to known physiological condition (2) Schizoaffective disorder, depressive type: Status: Acute Code(s): F25.1 - Schizoaffective disorder, depressive type (3) Essential (primary) hypertension: Status: Acute Code(s): I10 - Essential (primary) hypertension (4) Diabetes mellitus: Qualifiers: Diabetes mellitus type: type 2 Diabetes mellitus group home insulin use: 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 Patient not tolerating combination of clozapine and lorazepam appears overly sedated lethargic remains blunted psychomotor retarded with catatonia. Will lower Ativan to 1 mg 3 times a day lower clozapine to 250 mg hopefully patient will be more alert and we can better tease out catatonia versus medication induced lethargy on top of that. The patient has had a complicated response in the past to ECT. Last year did seem to help him in some years past the patient did have a course of over 10 treatments that did not help with his catatonia and eventually responded to combination of clozapine and lorazepam. stop abilify If patient becomes more alert will try and see if he is able to possibly consent for ECT which he has done in the past there was a lot of negative feedback from a family member which had been difficult for the patient to deal with. There is a court hearing for treatment order and retention scheduled past records in responses extensively reviewed 01/18/24 cont current tx plan improvement noted abilify d/c in context of catatonia monitor response to dec clozapine lower ativan . trying to balance catatonia tx vs oversedation ect remains possible option but pt improved today Plan 1. Continue with Clozaril and Ativan. 2. We will reassess the possibility of ECT with his father. His father has adamantly refused this treatment option. 3. The patient is conditional voluntary by healthcare proxy 4. The patient remains with some catatonic symptoms but slightly better. We will wait. Reason for continued inpatient stay Substantial Risk for: inability to function, rapid decompensation and med/psych decompensation Time Spent With Patient Time: Total time managing care of this patient today __20__ minutes.
[2024-01-30 20:00] VITALS: BP 90/57; PULSE 66; RESP 18; TEMP 36.5; O2SAT 96
[2024-01-30] MEDS: cloZAPine 200 MG, cloZAPine 50 MG 250 MG PO (20:44)
[2024-01-30 20:45] VITALS: BP 90/57
[2024-01-30] MEDS: Sennosides 8.6 MG TABLET 17.2 MG PO (20:47)
[2024-01-30] MEDS: Tamsulosin HCL 0.4 MG CAPSULE PO (20:47)
[2024-01-31] MEDS: Omeprazole 20 MG CAPSULE.DR PO (06:37)
[2024-01-31 06:46] LABS: Glucose, Whole Blood 98 mg/dL (60-115)
[2024-01-31 08:00] VITALS: BP 130/75; PULSE 72; TEMP 36.2; O2SAT 95
[2024-01-31] MEDS: polyethylene glycoL 3350 17 GM POWD.PACK PO (09:08)
[2024-01-31] MEDS: LORazepam 1 MG TABLET 2 MG PO ×3 (09:11→19:49)
[2024-01-31 09:12] VITALS: BP 130/75
[2024-01-31] MEDS: Sertraline HCL 100 MG TABLET PO ×2 (09:12→19:50)
[2024-01-31] MEDS: Docusate Sodium 100 MG CAPSULE PO ×2 (09:12→19:53)
[2024-01-31] MEDS: cloNIDine HCL 0.1 MG TABLET 0.05 MG PO ×2 (09:12→19:52)
[2024-01-31 10:23] VITALS: RESP 17
--- NOTE | 2024-01-31 13:40 | HO.PSYCHPN ---
Subjective Subjective Date of Service: 01/31/24 Reason For Visit: catatonia Subjective Notes: Conditional Voluntary Healthcare Proxy: Yes Interim History: The nursing staff reported no changes in his mental status, compliant with treatment, he eats by himself his meals and he takes good p.o. in take of fluids. On interview the patient remains catatonic at times. Mental Status Exam Mental Status Exam Patient Appearance: Appropriate Patient Orientation: Person and Situation Level of Consciousness: Awake Patient Behavior: Guarded and Passive Mood Description: Calm Affect Description: Constricted Patient Cognition Impaired: Yes Ability to Follow Directions: Good Speech Pattern: Clear Hallucinations: None Delusions: Ideas of Reference Thought Process: Distracted and Slowed Thinking Thought Content: positive for Thought Blocking Judgement: Poor Diagnostics Vital Signs (24Hr): Vital Signs - 24 hr 01/30/24 20:00 01/30/24 20:45 01/31/24 08:00 Temperature 97.7 F 97.1 F Pulse Rate 66 72 Respiratory Rate 18 Blood Pressure 90/57 L 90/57 L 130/75 Pulse Oximetry 96 95 Oxygen Delivery Method Room Air 01/31/24 09:12 01/31/24 10:23 Temperature Pulse Rate Respiratory Rate 17 Blood Pressure 130/75 Pulse Oximetry Oxygen Delivery Method BMI result Body Mass Index 30.5 Labs 01/05/24 11:49 01/28/24 07:21 Labs: Laboratory Results - last 48 hr 01/29/24 01/30/24 01/31/24 19:56 06:34 06:35 POC Glucose 148 H 109 98 Imaging Radiology Impressions: ITS Impressions Chest X-Ray 01/07/24 13:27 IMPRESSION: Bronchial wall thickening may be infectious and/or inflammatory in etiology. Electronically signed by: Marianna Torres MD 01/07/2024 03:31 PM EDT Medications Medications Current Medications Acetaminophen (Acetaminophen 325 Mg Tablet) 650 mg PO Q6H PRN PRN Reason: Headache/Pain Mild Scale (1-3) Last Admin: 01/12/24 09:03 Dose: 650 mg Al Hydroxide/Mg Hydroxide (Magnesium Hydrox/Alum Hydrox 30 Ml Oral.Susp) 30 ml PO Q6H PRN PRN Reason: Heartburn/Nausea Clonidine HCl (Clonidine Hcl 0.1 Mg Tablet) 0.05 mg PO BID [facility]; Protocol Last Admin: 01/31/24 09:12 Dose: 0.05 mg Clozapine 200 mg/ Clozapine 50 (mg) 250 mg PO DAILY@1930 [facility] Last Admin: 01/30/24 20:44 Dose: 250 mg Docusate Sodium (Docusate Sodium 100 Mg Capsule) 100 mg PO BID [facility] Last Admin: 01/31/24 09:12 Dose: 100 mg Glucose (Glucose Gel 15 Gm Gel..Gram.) 15 gm PO Q15M PRN; Protocol PRN Reason: per Hypoglycemia Standing Ord. Hydroxyzine HCl (Hydroxyzine Hcl 25 Mg Tablet) 25 mg PO Q6H PRN PRN Reason: Anxiety Dextrose (D10) 250 mls @ 750 mls/hr IV Q15M PRN; Protocol PRN Reason: per Hypoglycemia Standing Ord. Insulin Human Lispro (Insulin Lispro 100 Unit/Ml 3 Ml Vial) 0 unit SUBCUT DAILY [facility]; Protocol Last Admin: 01/31/24 11:00 Dose: Not Given Lorazepam (Lorazepam 1 Mg Tablet) 2 mg PO TID [facility] Last Admin: 01/31/24 09:11 Dose: 2 mg Magnesium Hydroxide (Milk Of Magnesia 30 Ml Oral.Susp) 30 ml PO DAILY PRN PRN Reason: Constipation Last Admin: 01/11/24 12:48 Dose: 30 ml Omeprazole (Omeprazole 20 Mg Capsule.Dr) 20 mg PO DAILY@0630 [facility] Last Admin: 01/31/24 06:37 Dose: 20 mg Polyethylene Glycol (Polyethylene Glycol 3350 17 Gm Powd.Pack) 17 gm PO DAILY [facility] Last Admin: 01/31/24 09:08 Dose: 17 gm Senna (Sennosides 8.6 Mg Tablet) 17.2 mg PO BEDTIME [facility] Last Admin: 01/30/24 20:47 Dose: 17.2 mg Sertraline HCl (Sertraline Hcl 100 Mg Tablet) 100 mg PO BID [facility] Last Admin: 01/31/24 09:12 Dose: 100 mg Tamsulosin HCl (Tamsulosin Hcl 0.4 Mg Capsule) 0.4 mg PO BEDTIME [facility] Last Admin: 01/30/24 20:47 Dose: 0.4 mg Trazodone HCl (Trazodone Hcl 50 Mg Tablet) 50 mg PO BEDTIME MRX1 PRN PRN Reason: Insomnia Last Admin: 01/17/24 19:56 Dose: 50 mg Allergies Allergies Allergy/AdvReac Type Severity Reaction Status Date / Time No Known Allergies [NKA] Allergy Unknown NONE Verified 01/05/24 11:31 Assessment & Plan Assessment & Plan (1) Catatonia: Status: Acute Code(s): F06.1 - Catatonic disorder due to known physiological condition (2) Schizoaffective disorder, depressive type: Status: Acute Code(s): F25.1 - Schizoaffective disorder, depressive type (3) Essential (primary) hypertension: Status: Acute Code(s): I10 - Essential (primary) hypertension (4) Diabetes mellitus: Qualifiers: Diabetes mellitus complication status: with hyperglycemia Diabetes mellitus [facility] use: without [facility] use Diabetes mellitus type: type 2 Qualified Code(s): E11.65 - Type 2 diabetes mellitus with hyperglycemia Status: Acute Code(s): E11.9 - Type 2 diabetes mellitus without complications (5) Sleep apnea: Status: Acute Code(s): G47.30 - Sleep apnea, unspecified Plan 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 Patient not tolerating combination of clozapine and lorazepam appears overly sedated lethargic remains blunted psychomotor retarded with catatonia. Will lower Ativan to 1 mg 3 times a day lower clozapine to 250 mg hopefully patient will be more alert and we can better tease out catatonia versus medication induced lethargy on top of that. The patient has had a complicated response in the past to ECT. Last year did seem to help him in some years past the patient did have a course of over 10 treatments that did not help with his catatonia and eventually responded to combination of clozapine and lorazepam. stop abilify If patient becomes more alert will try and see if he is able to possibly consent for ECT which he has done in the past there was a lot of negative feedback from a family member which had been difficult for the patient to deal with. There is a court hearing for treatment order and retention scheduled past records in responses extensively reviewed 01/18/24 cont current tx plan improvement noted abilify d/c in context of catatonia monitor response to dec clozapine lower ativan . trying to balance catatonia tx vs oversedation ect remains possible option but pt improved today Plan 1. Continue with Clozaril and Ativan. 2. We will reassess the possibility of ECT with his father. His father has adamantly refused this treatment option. 3. The patient is conditional voluntary by healthcare proxy 4. The patient remains with some catatonic symptoms but slightly better. We will wait. Reason for continued inpatient stay Substantial Risk for: inability to function, rapid decompensation and med/psych decompensation Time Spent With Patient Time: Total time managing care of this patient today _20___ minutes.
[2024-01-31] MEDS: cloZAPine 200 MG, cloZAPine 50 MG 250 MG PO (19:50)
[2024-01-31] MEDS: Tamsulosin HCL 0.4 MG CAPSULE PO (19:51)
[2024-01-31 19:52] VITALS: BP 135/73
[2024-01-31] MEDS: Sennosides 8.6 MG TABLET 17.2 MG PO (19:52)
[2024-01-31 20:00] VITALS: BP 135/73; PULSE 68; RESP 16; TEMP 36.3; O2SAT 97
[2024-02-01 06:40] LABS: Glucose, Whole Blood 101 mg/dL (60-115)
[2024-02-01 08:00] VITALS: BP 128/61; PULSE 74; RESP 18; TEMP 36.4; O2SAT 98
[2024-02-01] MEDS: cloNIDine HCL 0.1 MG TABLET 0.05 MG PO ×2 (08:41→20:33)
[2024-02-01] MEDS: Docusate Sodium 100 MG CAPSULE PO ×2 (08:42→20:29)
[2024-02-01] MEDS: Sertraline HCL 100 MG TABLET PO ×2 (08:42→20:28)
[2024-02-01] MEDS: polyethylene glycoL 3350 17 GM POWD.PACK PO (08:46)
[2024-02-01] MEDS: LORazepam 1 MG TABLET 2 MG PO ×3 (09:41→20:28)
[2024-02-01 13:42] VITALS: BMI 30.6
--- NOTE | 2024-02-01 14:25 | P.PNPSI_ITS ---
Subjective Subjective Date of Service: 02/01/24 Reason For Visit: catatonia Subjective Notes: Conditional Voluntary Interim History: The nursing staff reported no changes in his mental status still catatonic at times. On interview the patient is able to follow simple commands. Mental Status Exam Mental Status Exam Patient Orientation: Person and Situation Level of Consciousness: Awake and Appropriate Patient Behavior: Guarded and Passive Mood Description: Blunted Affect Description: Blunted Patient Cognition Impaired: Yes Ability to Follow Directions: Fair Speech Pattern: Clear Hallucinations: None Delusions: Ideas of Reference Thought Process: Distracted and Slowed Thinking Thought Content: positive for Poverty of Content and positive for Thought Blocking Judgement: Poor Diagnostics Vital Signs (24Hr): Vital Signs - 24 hr 01/31/24 19:52 01/31/24 20:00 02/01/24 08:00 Temperature 97.4 F 97.6 F Pulse Rate 68 74 Respiratory Rate 16 18 Blood Pressure 135/73 135/73 128/61 Pulse Oximetry 97 98 Oxygen Delivery Method Room Air Room Air BMI result Body Mass Index 30.6 Labs 01/05/24 11:49 01/28/24 07:21 Labs: Laboratory Results - last 48 hr 01/31/24 02/01/24 06:35 06:09 POC Glucose 98 101 Imaging Radiology Impressions: ITS Impressions Chest X-Ray 01/07/24 13:27 IMPRESSION: Bronchial wall thickening may be infectious and/or inflammatory in etiology. Electronically signed by: Marianna Torres MD 01/07/2024 03:31 PM EDT RP Medications Medications Current Medications Acetaminophen (Acetaminophen 325 Mg Tablet) 650 mg PO Q6H PRN PRN Reason: Headache/Pain Mild Scale (1-3) Last Admin: 01/12/24 09:03 Dose: 650 mg Al Hydroxide/Mg Hydroxide (Magnesium Hydrox/Alum Hydrox 30 Ml Oral.Susp) 30 ml PO Q6H PRN PRN Reason: Heartburn/Nausea Clonidine HCl (Clonidine Hcl 0.1 Mg Tablet) 0.05 mg PO BID [facility]; Protocol Last Admin: 02/01/24 08:41 Dose: 0.05 mg Clozapine 200 mg/ Clozapine 50 (mg) 250 mg PO DAILY@1930 [facility] Last Admin: 01/31/24 19:50 Dose: 250 mg Docusate Sodium (Docusate Sodium 100 Mg Capsule) 100 mg PO BID [facility] Last Admin: 02/01/24 08:42 Dose: 100 mg Glucose (Glucose Gel 15 Gm Gel..Gram.) 15 gm PO Q15M PRN; Protocol PRN Reason: per Hypoglycemia Standing Ord. Hydroxyzine HCl (Hydroxyzine Hcl 25 Mg Tablet) 25 mg PO Q6H PRN PRN Reason: Anxiety Dextrose (D10) 250 mls @ 750 mls/hr IV Q15M PRN; Protocol PRN Reason: per Hypoglycemia Standing Ord. Insulin Human Lispro (Insulin Lispro 100 Unit/Ml 3 Ml Vial) 0 unit SUBCUT DAILY [facility]; Protocol Last Admin: 02/01/24 08:43 Dose: Not Given Lorazepam (Lorazepam 1 Mg Tablet) 2 mg PO TID [facility] Last Admin: 02/01/24 09:41 Dose: 2 mg Magnesium Hydroxide (Milk Of Magnesia 30 Ml Oral.Susp) 30 ml PO DAILY PRN PRN Reason: Constipation Last Admin: 01/11/24 12:48 Dose: 30 ml Omeprazole (Omeprazole 20 Mg Capsule.Dr) 20 mg PO DAILY@0630 [facility] Last Admin: 02/01/24 06:39 Dose: Not Given Polyethylene Glycol (Polyethylene Glycol 3350 17 Gm Powd.Pack) 17 gm PO DAILY [facility] Last Admin: 02/01/24 08:46 Dose: 17 gm Senna (Sennosides 8.6 Mg Tablet) 17.2 mg PO BEDTIME [facility] Last Admin: 01/31/24 19:52 Dose: 17.2 mg Sertraline HCl (Sertraline Hcl 100 Mg Tablet) 100 mg PO BID [facility] Last Admin: 02/01/24 08:42 Dose: 100 mg Tamsulosin HCl (Tamsulosin Hcl 0.4 Mg Capsule) 0.4 mg PO BEDTIME [facility] Last Admin: 01/31/24 19:51 Dose: 0.4 mg Trazodone HCl (Trazodone Hcl 50 Mg Tablet) 50 mg PO BEDTIME MRX1 PRN PRN Reason: Insomnia Last Admin: 01/17/24 19:56 Dose: 50 mg Allergies Allergies Allergy/AdvReac Type Severity Reaction Status Date / Time No Known Allergies [NKA] Allergy Unknown NONE Verified 01/05/24 11:31 Assessment & Plan Assessment & Plan (1) Catatonia: Status: Acute Code(s): F06.1 - Catatonic disorder due to known physiological condition (2) Schizoaffective disorder, depressive type: Status: Acute Code(s): F25.1 - Schizoaffective disorder, depressive type (3) Essential (primary) hypertension: Status: Acute Code(s): I10 - Essential (primary) hypertension (4) Diabetes mellitus: Qualifiers: Diabetes mellitus type: type 2 Diabetes mellitus nursing home insulin use: without nursing home use Diabetes mellitus complication status: with hyperglycemia Qualified Code(s): E11.65 - Type 2 diabetes mellitus with hyperglycemia Status: Acute Code(s): E11.9 - Type 2 diabetes mellitus without complications (5) Sleep apnea: Status: Acute Code(s): G47.30 - Sleep apnea, unspecified Plan 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 Patient not tolerating combination of clozapine and lorazepam appears overly sedated lethargic remains blunted psychomotor retarded with catatonia. Will lower Ativan to 1 mg 3 times a day lower clozapine to 250 mg hopefully patient will be more alert and we can better tease out catatonia versus medication induced lethargy on top of that. The patient has had a complicated response in the past to ECT. Last year did seem to help him in some years past the patient did have a course of over 10 treatments that did not help with his catatonia and eventually responded to combination of clozapine and lorazepam. stop abilify If patient becomes more alert will try and see if he is able to possibly consent for ECT which he has done in the past there was a lot of negative feedback from a family member which had been difficult for the patient to deal with. There is a court hearing for treatment order and retention scheduled past records in responses extensively reviewed 01/18/24 cont current tx plan improvement noted abilify d/c in context of catatonia monitor response to dec clozapine lower ativan . trying to balance catatonia tx vs oversedation ect remains possible option but pt improved today Plan 1. Continue with Clozaril and Ativan. 2. We will reassess the possibility of ECT with his father. His father has adamantly refused this treatment option. 3. The patient is conditional voluntary by healthcare proxy 4. The patient remains with some catatonic symptoms but slightly better. We will wait. Reason for continued inpatient stay Substantial Risk for: inability to function, rapid decompensation and med/psych decompensation Time Spent With Patient Time: Total time managing care of this patient today __20__ minutes.
[2024-02-01 19:42] VITALS: BP 104/61; PULSE 78; RESP 18; TEMP 36.4; O2SAT 96
[2024-02-01] MEDS: Tamsulosin HCL 0.4 MG CAPSULE PO (20:28)
[2024-02-01] MEDS: cloZAPine 200 MG, cloZAPine 50 MG 250 MG PO (20:29)
[2024-02-01] MEDS: Sennosides 8.6 MG TABLET 17.2 MG PO (20:29)
[2024-02-02] MEDS: Omeprazole 20 MG CAPSULE.DR PO (06:11)
[2024-02-02 06:31] LABS: Glucose, Whole Blood 102 mg/dL (60-115)
[2024-02-02 08:49] LABS: Neutrophils Absolute Auto 3.3 x10*3/uL (2.0-8.3); WBCANC 5.2 X10*3/uL
[2024-02-02 09:10] VITALS: BP 134/65; PULSE 76; RESP 18; TEMP 36.1; O2SAT 96
[2024-02-02] MEDS: LORazepam 1 MG TABLET 2 MG PO ×3 (09:14→21:30)
[2024-02-02] MEDS: Docusate Sodium 100 MG CAPSULE PO ×2 (09:14→21:31)
[2024-02-02] MEDS: cloNIDine HCL 0.1 MG TABLET 0.05 MG PO ×2 (09:14→21:31)
[2024-02-02] MEDS: polyethylene glycoL 3350 17 GM POWD.PACK PO (09:15)
[2024-02-02] MEDS: Sertraline HCL 100 MG TABLET PO ×2 (09:15→21:30)
--- NOTE | 2024-02-02 11:47 | P.PNPSI_ITS ---
Subjective Subjective Date of Service: 02/02/24 Reason For Visit: catatonia Subjective Notes: Conditional Voluntary Healthcare Proxy: Yes Interim History: The nursing staff reported the patient had a big bowel movement yesterday. He slept 8 hours. His visible on the common areas, hypoactive responding with 1 word. Able to follow simple commands still catatonic. Mental Status Exam Mental Status Exam Patient Appearance: Appropriate Patient Orientation: Person Level of Consciousness: Obtunded Patient Behavior: Guarded and Passive Mood Description: Withdrawn Affect Description: Blunted Patient Cognition Impaired: Yes Ability to Follow Directions: Fair Speech Pattern: Clear Hallucinations: None Delusions: Not Present Thought Process: Distracted and Slowed Thinking Thought Content: positive for [place] and positive for Poverty of Content Judgement: Poor Diagnostics Vital Signs (24Hr): Vital Signs - 24 hr 02/01/24 19:42 02/02/24 09:10 Temperature 97.6 F 97 F Pulse Rate 78 76 Respiratory Rate 18 18 Blood Pressure 104/61 134/65 Pulse Oximetry 96 96 Oxygen Delivery Method Room Air Room Air BMI result Body Mass Index 30.6 Labs 01/05/24 11:49 01/28/24 07:21 Labs: Laboratory Results - last 48 hr 02/01/24 02/02/24 02/02/24 06:09 06:19 08:25 Absolute Neuts (auto) 3.3 POC Glucose 101 102 Imaging Radiology Impressions: ITS Impressions Chest X-Ray 01/07/24 13:27 IMPRESSION: Bronchial wall thickening may be infectious and/or inflammatory in etiology. Electronically signed by: Marianna Torres MD 01/07/2024 03:31 PM EDT Medications Medications Current Medications Acetaminophen (Acetaminophen 325 Mg Tablet) 650 mg PO Q6H PRN PRN Reason: Headache/Pain Mild Scale (1-3) Last Admin: 01/12/24 09:03 Dose: 650 mg Al Hydroxide/Mg Hydroxide (Magnesium Hydrox/Alum Hydrox 30 Ml Oral.Susp) 30 ml PO Q6H PRN PRN Reason: Heartburn/Nausea Clonidine HCl (Clonidine Hcl 0.1 Mg Tablet) 0.05 mg PO BID [facility]; Protocol Last Admin: 02/02/24 09:14 Dose: 0.05 mg Clozapine 200 mg/ Clozapine 50 (mg) 250 mg PO DAILY@1930 [facility] Last Admin: 02/01/24 20:29 Dose: 250 mg Docusate Sodium (Docusate Sodium 100 Mg Capsule) 100 mg PO BID [facility] Last Admin: 02/02/24 09:14 Dose: 100 mg Glucose (Glucose Gel 15 Gm Gel..Gram.) 15 gm PO Q15M PRN; Protocol PRN Reason: per Hypoglycemia Standing Ord. Hydroxyzine HCl (Hydroxyzine Hcl 25 Mg Tablet) 25 mg PO Q6H PRN PRN Reason: Anxiety Dextrose (D10) 250 mls @ 750 mls/hr IV Q15M PRN; Protocol PRN Reason: per Hypoglycemia Standing Ord. Insulin Human Lispro (Insulin Lispro 100 Unit/Ml 3 Ml Vial) 0 unit SUBCUT DAILY [facility]; Protocol Last Admin: 02/02/24 09:15 Dose: Not Given Lorazepam (Lorazepam 1 Mg Tablet) 2 mg PO TID [facility] Last Admin: 02/02/24 09:14 Dose: 2 mg Magnesium Hydroxide (Milk Of Magnesia 30 Ml Oral.Susp) 30 ml PO DAILY PRN PRN Reason: Constipation Last Admin: 01/11/24 12:48 Dose: 30 ml Omeprazole (Omeprazole 20 Mg Capsule.Dr) 20 mg PO DAILY@0630 [facility] Last Admin: 02/02/24 06:11 Dose: 20 mg Polyethylene Glycol (Polyethylene Glycol 3350 17 Gm Powd.Pack) 17 gm PO DAILY [facility] Last Admin: 02/02/24 09:15 Dose: 17 gm Senna (Sennosides 8.6 Mg Tablet) 17.2 mg PO BEDTIME [facility] Last Admin: 02/01/24 20:29 Dose: 17.2 mg Sertraline HCl (Sertraline Hcl 100 Mg Tablet) 100 mg PO BID [facility] Last Admin: 02/02/24 09:15 Dose: 100 mg Tamsulosin HCl (Tamsulosin Hcl 0.4 Mg Capsule) 0.4 mg PO BEDTIME [facility] Last Admin: 02/01/24 20:28 Dose: 0.4 mg Trazodone HCl (Trazodone Hcl 50 Mg Tablet) 50 mg PO BEDTIME MRX1 PRN PRN Reason: Insomnia Last Admin: 01/17/24 19:56 Dose: 50 mg Allergies Allergies Allergy/AdvReac Type Severity Reaction Status Date / Time No Known Allergies [NKA] Allergy Unknown NONE Verified 01/05/24 11:31 Assessment & Plan Assessment & Plan (1) Catatonia: Status: Acute Code(s): F06.1 - Catatonic disorder due to known physiological condition (2) Schizoaffective disorder, depressive type: Status: Acute Code(s): F25.1 - Schizoaffective disorder, depressive type (3) Essential (primary) hypertension: Status: Acute Code(s): I10 - Essential (primary) hypertension (4) Diabetes mellitus: Qualifiers: Diabetes mellitus type: type 2 Diabetes mellitus detention insulin use: without termite control representative use Diabetes mellitus complication status: with hyperglycemia Qualified Code(s): E11.65 - Type 2 diabetes mellitus with hyperglycemia Status: Acute Code(s): E11.9 - Type 2 diabetes mellitus without complications (5) Sleep apnea: Status: Acute Code(s): G47.30 - Sleep apnea, unspecified Plan 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 Patient not tolerating combination of clozapine and lorazepam appears overly sedated lethargic remains blunted psychomotor retarded with catatonia. Will lower Ativan to 1 mg 3 times a day lower clozapine to 250 mg hopefully patient will be more alert and we can better tease out catatonia versus medication induced lethargy on top of that. The patient has had a complicated response in the past to ECT. Last year did seem to help him in some years past the patient did have a course of over 10 treatments that did not help with his catatonia and eventually responded to combination of clozapine and lorazepam. stop abilify If patient becomes more alert will try and see if he is able to possibly consent for ECT which he has done in the past there was a lot of negative feedback from a family member which had been difficult for the patient to deal with. There is a court hearing for treatment order and retention scheduled past records in responses extensively reviewed 01/18/24 cont current tx plan improvement noted abilify d/c in context of catatonia monitor response to dec clozapine lower ativan . trying to balance catatonia tx vs oversedation ect remains possible option but pt improved today Plan 1. Continue with Clozaril and Ativan. 2. We will reassess the possibility of ECT with his father. His father has adamantly refused this treatment option. 3. The patient is conditional voluntary by healthcare proxy 4. The patient remains with some catatonic symptoms but slightly better. We will wait. Reason for continued inpatient stay Substantial Risk for: inability to function, rapid decompensation and med/psych decompensation Time Spent With Patient Time: Total time managing care of this patient today __20__ minutes.
[2024-02-02 20:00] VITALS: BP 138/89; PULSE 72; RESP 16; TEMP 36.6; O2SAT 96
[2024-02-02] MEDS: cloZAPine 200 MG, cloZAPine 50 MG 250 MG PO (21:30)
[2024-02-02] MEDS: Tamsulosin HCL 0.4 MG CAPSULE PO (21:30)
[2024-02-02] MEDS: Sennosides 8.6 MG TABLET 17.2 MG PO (21:30)
[2024-02-02 21:31] VITALS: BP 138/89
[2024-02-03] MEDS: Omeprazole 20 MG CAPSULE.DR PO (06:39)
[2024-02-03 06:46] LABS: Glucose, Whole Blood 95 mg/dL (60-115)
[2024-02-03 08:10] VITALS: BP 128/64; PULSE 70; RESP 16; TEMP 36.8; O2SAT 96
--- NOTE | 2024-02-03 08:47 | HO.PSYCHPN ---
Subjective Subjective Date of Service: 02/03/24 Reason For Visit: catatonia Subjective Notes: Conditional Voluntary Healthcare Proxy: Yes Interim History: Periods of some brief improvement, but mostly catatonic, he is eating, with encouragement from nursing out for meals. No SI/HI. Medication Compliance: Yes Review of Systems Review of Systems Yes Other (patient not answering ROS secondary to catatonic state) Mental Status Exam Mental Status Exam Narrative: disheveled, hospital garb. PMR. poor eye contact. cooperative. speech almost nil, nearly inaudible. thoughts difficult to discern, overtly linear. affect flat. mood, SI/HI/AVH unable to assess (pt made no response to questions). Diagnostics Vital Signs (24Hr): Vital Signs - 24 hr 02/02/24 09:10 02/02/24 20:00 02/02/24 21:31 Temperature 97 F 97.8 F Pulse Rate 76 72 Respiratory Rate 18 16 Blood Pressure 134/65 138/89 138/89 Pulse Oximetry 96 96 Oxygen Delivery Method Room Air Room Air BMI result Body Mass Index 30.6 Labs 01/05/24 11:49 02/04/24 07:17 Labs: Laboratory Results - last 48 hr 02/02/24 02/02/24 02/03/24 06:19 08:25 06:37 Absolute Neuts (auto) 3.3 POC Glucose 102 95 Imaging Radiology Impressions: ITS Impressions Chest X-Ray 01/07/24 13:27 IMPRESSION: Bronchial wall thickening may be infectious and/or inflammatory in etiology. Electronically signed by: Marianna Torres MD 01/07/2024 03:31 PM EDT Medications Medications Current Medications Acetaminophen (Acetaminophen 325 Mg Tablet) 650 mg PO Q6H PRN PRN Reason: Headache/Pain Mild Scale (1-3) Last Admin: 01/12/24 09:03 Dose: 650 mg Al Hydroxide/Mg Hydroxide (Magnesium Hydrox/Alum Hydrox 30 Ml Oral.Susp) 30 ml PO Q6H PRN PRN Reason: Heartburn/Nausea Clonidine HCl (Clonidine Hcl 0.1 Mg Tablet) 0.05 mg PO BID [facility]; Protocol Last Admin: 02/02/24 21:31 Dose: 0.05 mg Clozapine 200 mg/ Clozapine 50 (mg) 250 mg PO DAILY@1930 [facility] Last Admin: 02/02/24 21:30 Dose: 250 mg Docusate Sodium (Docusate Sodium 100 Mg Capsule) 100 mg PO BID [facility] Last Admin: 02/02/24 21:31 Dose: 100 mg Glucose (Glucose Gel 15 Gm Gel..Gram.) 15 gm PO Q15M PRN; Protocol PRN Reason: per Hypoglycemia Standing Ord. Hydroxyzine HCl (Hydroxyzine Hcl 25 Mg Tablet) 25 mg PO Q6H PRN PRN Reason: Anxiety Dextrose (D10) 250 mls @ 750 mls/hr IV Q15M PRN; Protocol PRN Reason: per Hypoglycemia Standing Ord. Insulin Human Lispro (Insulin Lispro 100 Unit/Ml 3 Ml Vial) 0 unit SUBCUT DAILY [facility]; Protocol Last Admin: 02/02/24 09:15 Dose: Not Given Lorazepam (Lorazepam 1 Mg Tablet) 2 mg PO TID [facility] Last Admin: 02/02/24 21:30 Dose: 2 mg Magnesium Hydroxide (Milk Of Magnesia 30 Ml Oral.Susp) 30 ml PO DAILY PRN PRN Reason: Constipation Last Admin: 01/11/24 12:48 Dose: 30 ml Omeprazole (Omeprazole 20 Mg Capsule.Dr) 20 mg PO DAILY@0630 [facility] Last Admin: 02/03/24 06:39 Dose: 20 mg Polyethylene Glycol (Polyethylene Glycol 3350 17 Gm Powd.Pack) 17 gm PO DAILY [facility] Last Admin: 02/02/24 09:15 Dose: 17 gm Senna (Sennosides 8.6 Mg Tablet) 17.2 mg PO BEDTIME [facility] Last Admin: 02/02/24 21:30 Dose: 17.2 mg Sertraline HCl (Sertraline Hcl 100 Mg Tablet) 100 mg PO BID [facility] Last Admin: 02/02/24 21:30 Dose: 100 mg Tamsulosin HCl (Tamsulosin Hcl 0.4 Mg Capsule) 0.4 mg PO BEDTIME [facility] Last Admin: 02/02/24 21:30 Dose: 0.4 mg Trazodone HCl (Trazodone Hcl 50 Mg Tablet) 50 mg PO BEDTIME MRX1 PRN PRN Reason: Insomnia Last Admin: 01/17/24 19:56 Dose: 50 mg Allergies Allergies Allergy/AdvReac Type Severity Reaction Status Date / Time No Known Allergies [NKA] Allergy Unknown NONE Verified 01/05/24 11:31 Assessment & Plan Assessment & Plan (1) Catatonia: Status: Acute Code(s): F06.1 - Catatonic disorder due to known physiological condition (2) Schizoaffective disorder, depressive type: Status: Acute Code(s): F25.1 - Schizoaffective disorder, depressive type (3) Essential (primary) hypertension: Status: Acute Code(s): I10 - Essential (primary) hypertension (4) Diabetes mellitus: Qualifiers: Diabetes mellitus complication status: with hyperglycemia Diabetes mellitus director long term care insulin use: without mcc use Diabetes mellitus type: type 2 Qualified Code(s): E11.65 - Type 2 diabetes mellitus with hyperglycemia Status: Acute Code(s): E11.9 - Type 2 diabetes mellitus without complications (5) Sleep apnea: Status: Acute Code(s): G47.30 - Sleep apnea, unspecified Plan 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 Patient not tolerating combination of clozapine and lorazepam appears overly sedated lethargic remains blunted psychomotor retarded with catatonia. Will lower Ativan to 1 mg 3 times a day lower clozapine to 250 mg hopefully patient will be more alert and we can better tease out catatonia versus medication induced lethargy on top of that. The patient has had a complicated response in the past to ECT. Last year did seem to help him in some years past the patient did have a course of over 10 treatments that did not help with his catatonia and eventually responded to combination of clozapine and lorazepam. stop abilify If patient becomes more alert will try and see if he is able to possibly consent for ECT which he has done in the past there was a lot of negative feedback from a family member which had been difficult for the patient to deal with. There is a court hearing for treatment order and retention scheduled past records in responses extensively reviewed 01/18/24 cont current tx plan improvement noted abilify d/c in context of catatonia monitor response to dec clozapine lower ativan . trying to balance catatonia tx vs oversedation ect remains possible option but pt improved today Plan 1. Continue with Clozaril and Ativan. 2. We will reassess the possibility of ECT with his father. His father has adamantly refused this treatment option. 3. The patient is conditional voluntary by healthcare proxy 4. The patient remains with some catatonic symptoms but slightly better. We will wait. Reason for continued inpatient stay Substantial Risk for: inability to function Time Spent With Patient Time: Total time managing care of this patient today ____ minutes.
[2024-02-03] MEDS: LORazepam 1 MG TABLET 2 MG PO ×3 (09:18→21:30)
[2024-02-03] MEDS: cloNIDine HCL 0.1 MG TABLET 0.05 MG PO ×2 (09:19→21:30)
[2024-02-03] MEDS: Docusate Sodium 100 MG CAPSULE PO ×2 (09:19→21:29)
[2024-02-03] MEDS: Sertraline HCL 100 MG TABLET PO ×2 (09:19→21:30)
[2024-02-03] MEDS: polyethylene glycoL 3350 17 GM POWD.PACK PO (09:20)
[2024-02-03 20:00] VITALS: BP 119/67; PULSE 66; RESP 16; TEMP 36.4; O2SAT 96
[2024-02-03] MEDS: Sennosides 8.6 MG TABLET 17.2 MG PO (21:29)
[2024-02-03] MEDS: cloZAPine 200 MG, cloZAPine 50 MG 250 MG PO (21:29)
[2024-02-03 21:30] VITALS: BP 119/67
[2024-02-03] MEDS: Tamsulosin HCL 0.4 MG CAPSULE PO (21:30)
[2024-02-04] MEDS: Omeprazole 20 MG CAPSULE.DR PO (06:47)
[2024-02-04 06:55] LABS: Glucose, Whole Blood 98 mg/dL (60-115)
[2024-02-04 07:36] LABS: Creatinine Clr Calc Pharmacy 69.3; Estimated Glomerular Filt Rate 55
[2024-02-04 07:55] VITALS: BP 123/73; PULSE 72; RESP 20; TEMP 36.6; O2SAT 97
[2024-02-04] MEDS: Sertraline HCL 100 MG TABLET PO ×2 (09:28→20:14)
[2024-02-04] MEDS: polyethylene glycoL 3350 17 GM POWD.PACK PO (09:28)
[2024-02-04] MEDS: cloNIDine HCL 0.1 MG TABLET 0.05 MG PO ×2 (09:28→20:14)
[2024-02-04] MEDS: Docusate Sodium 100 MG CAPSULE PO ×2 (09:28→20:14)
[2024-02-04] MEDS: LORazepam 1 MG TABLET 2 MG PO ×3 (09:33→20:13)
--- NOTE | 2024-02-04 19:57 | HO.PSYCHPN ---
Subjective Subjective Date of Service: 02/04/24 Reason For Visit: catatonia Interim History: Periods of some brief improvement, but mostly catatonic, he is eating, with encouragement from nursing out for meals. No SI/HI. Review of Systems Review of Systems Yes Other (patient not answering ROS secondary to catatonic state) Mental Status Exam Mental Status Exam Patient Appearance: Appropriate Patient Orientation: Person Level of Consciousness: Obtunded Patient Behavior: Guarded and Passive Mood Description: Withdrawn Affect Description: Blunted Patient Cognition Impaired: Yes Ability to Follow Directions: Fair Speech Pattern: Clear Diagnostics Vital Signs (24Hr): Vital Signs - 24 hr 02/03/24 20:00 02/03/24 21:30 02/04/24 07:55 Temperature 97.5 F 97.9 F Pulse Rate 66 72 Respiratory Rate 16 20 Blood Pressure 119/67 119/67 123/73 Pulse Oximetry 96 97 Oxygen Delivery Method Room Air Room Air BMI result Body Mass Index 30.6 Labs 01/05/24 11:49 02/04/24 07:17 Labs: Laboratory Results - last 48 hr 02/03/24 02/04/24 02/04/24 06:37 06:46 07:17 Creatinine 1.32 Estim Creat Clear Calc 69.3 Estimated GFR 55 POC Glucose 95 98 Imaging Radiology Impressions: ITS Impressions Chest X-Ray 01/07/24 13:27 IMPRESSION: Bronchial wall thickening may be infectious and/or inflammatory in etiology. Electronically signed by: Marianna Torres MD 01/07/2024 03:31 PM EDT Medications Medications Current Medications Acetaminophen (Acetaminophen 325 Mg Tablet) 650 mg PO Q6H PRN PRN Reason: Headache/Pain Mild Scale (1-3) Last Admin: 01/12/24 09:03 Dose: 650 mg Al Hydroxide/Mg Hydroxide (Magnesium Hydrox/Alum Hydrox 30 Ml Oral.Susp) 30 ml PO Q6H PRN PRN Reason: Heartburn/Nausea Clonidine HCl (Clonidine Hcl 0.1 Mg Tablet) 0.05 mg PO BID [facility]; Protocol Last Admin: 02/04/24 09:28 Dose: 0.05 mg Clozapine 200 mg/ Clozapine 50 (mg) 250 mg PO DAILY@1930 [facility] Last Admin: 02/03/24 21:29 Dose: 250 mg Docusate Sodium (Docusate Sodium 100 Mg Capsule) 100 mg PO BID [facility] Last Admin: 02/04/24 09:28 Dose: 100 mg Glucose (Glucose Gel 15 Gm Gel..Gram.) 15 gm PO Q15M PRN; Protocol PRN Reason: per Hypoglycemia Standing Ord. Hydroxyzine HCl (Hydroxyzine Hcl 25 Mg Tablet) 25 mg PO Q6H PRN PRN Reason: Anxiety Dextrose (D10) 250 mls @ 750 mls/hr IV Q15M PRN; Protocol PRN Reason: per Hypoglycemia Standing Ord. Insulin Human Lispro (Insulin Lispro 100 Unit/Ml 3 Ml Vial) 0 unit SUBCUT DAILY [facility]; Protocol Last Admin: 02/04/24 09:30 Dose: Not Given Lorazepam (Lorazepam 1 Mg Tablet) 2 mg PO TID [facility] Last Admin: 02/04/24 14:30 Dose: 2 mg Magnesium Hydroxide (Milk Of Magnesia 30 Ml Oral.Susp) 30 ml PO DAILY PRN PRN Reason: Constipation Last Admin: 01/11/24 12:48 Dose: 30 ml Omeprazole (Omeprazole 20 Mg Capsule.Dr) 20 mg PO DAILY@0630 [facility] Last Admin: 02/04/24 06:47 Dose: 20 mg Polyethylene Glycol (Polyethylene Glycol 3350 17 Gm Powd.Pack) 17 gm PO DAILY [facility] Last Admin: 02/04/24 09:28 Dose: 17 gm Senna (Sennosides 8.6 Mg Tablet) 17.2 mg PO BEDTIME [facility] Last Admin: 02/03/24 21:29 Dose: 17.2 mg Sertraline HCl (Sertraline Hcl 100 Mg Tablet) 100 mg PO BID [facility] Last Admin: 02/04/24 09:28 Dose: 100 mg Tamsulosin HCl (Tamsulosin Hcl 0.4 Mg Capsule) 0.4 mg PO BEDTIME [facility] Last Admin: 02/03/24 21:30 Dose: 0.4 mg Trazodone HCl (Trazodone Hcl 50 Mg Tablet) 50 mg PO BEDTIME MRX1 PRN PRN Reason: Insomnia Last Admin: 01/17/24 19:56 Dose: 50 mg Allergies Allergies Allergy/AdvReac Type Severity Reaction Status Date / Time No Known Allergies [NKA] Allergy Unknown NONE Verified 01/05/24 11:31 Assessment & Plan Assessment & Plan (1) Catatonia: Status: Acute Code(s): F06.1 - Catatonic disorder due to known physiological condition (2) Schizoaffective disorder, depressive type: Status: Acute Code(s): F25.1 - Schizoaffective disorder, depressive type (3) Essential (primary) hypertension: Status: Acute Code(s): I10 - Essential (primary) hypertension (4) Diabetes mellitus: Qualifiers: Diabetes mellitus complication status: with hyperglycemia Diabetes mellitus senior living insulin use: without dedicated intermodal truck driver use Diabetes mellitus type: type 2 Qualified Code(s): E11.65 - Type 2 diabetes mellitus with hyperglycemia Status: Acute Code(s): E11.9 - Type 2 diabetes mellitus without complications (5) Sleep apnea: Status: Acute Code(s): G47.30 - Sleep apnea, unspecified Plan 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 Patient not tolerating combination of clozapine and lorazepam appears overly sedated lethargic remains blunted psychomotor retarded with catatonia. Will lower Ativan to 1 mg 3 times a day lower clozapine to 250 mg hopefully patient will be more alert and we can better tease out catatonia versus medication induced lethargy on top of that. The patient has had a complicated response in the past to ECT. Last year did seem to help him in some years past the patient did have a course of over 10 treatments that did not help with his catatonia and eventually responded to combination of clozapine and lorazepam. stop abilify If patient becomes more alert will try and see if he is able to possibly consent for ECT which he has done in the past there was a lot of negative feedback from a family member which had been difficult for the patient to deal with. There is a court hearing for treatment order and retention scheduled past records in responses extensively reviewed 01/18/24 cont current tx plan improvement noted abilify d/c in context of catatonia monitor response to dec clozapine lower ativan . trying to balance catatonia tx vs oversedation ect remains possible option but pt improved today 02/03 intermittent worsening of catatonia. continue tx. Plan 1. Continue with Clozaril and Ativan. 2. We will reassess the possibility of ECT with his father. His father has adamantly refused this treatment option. 3. The patient is conditional voluntary by healthcare proxy 4. The patient remains with some catatonic symptoms but slightly better. We will wait. Reason for continued inpatient stay Substantial Risk for: inability to function Time Spent With Patient Time: Total time managing care of this patient today ____ minutes.
[2024-02-04 20:12] VITALS: BP 113/50; PULSE 71; RESP 17; TEMP 37.2; O2SAT 97
[2024-02-04 20:14] VITALS: BP 113/50
[2024-02-04] MEDS: Tamsulosin HCL 0.4 MG CAPSULE PO (20:14)
[2024-02-04] MEDS: Sennosides 8.6 MG TABLET 17.2 MG PO (20:14)
[2024-02-04] MEDS: cloZAPine 200 MG, cloZAPine 50 MG 250 MG PO (20:14)
[2024-02-05] MEDS: Omeprazole 20 MG CAPSULE.DR PO (06:03)
[2024-02-05 06:53] LABS: Glucose, Whole Blood 94 mg/dL (60-115)
[2024-02-05 08:00] VITALS: BP 101/60; PULSE 73; RESP 16; TEMP 37.9; O2SAT 99
[2024-02-05] MEDS: LORazepam 1 MG TABLET 2 MG PO ×3 (09:28→20:15)
[2024-02-05 09:29] VITALS: BP 101/50
[2024-02-05] MEDS: Sertraline HCL 100 MG TABLET PO ×2 (09:29→20:17)
[2024-02-05] MEDS: Docusate Sodium 100 MG CAPSULE PO ×2 (09:29→20:17)
[2024-02-05] MEDS: cloNIDine HCL 0.1 MG TABLET 0.05 MG PO ×2 (09:29→20:16)
[2024-02-05] MEDS: polyethylene glycoL 3350 17 GM POWD.PACK PO (09:31)
--- NOTE | 2024-02-05 13:48 | HO.PSYCHPN ---
Subjective Subjective Date of Service: 02/05/24 Reason For Visit: catatonia Subjective Notes: Conditional Voluntary Healthcare Proxy: Yes Interim History: The nursing staff reported that he still flat, he slept 7 hours goes to common areas for meals. On interview the patient was unable to answer questions due to catatonia. Mental Status Exam Mental Status Exam Patient Appearance: Appropriate Patient Orientation: Person Level of Consciousness: Awake Patient Behavior: Guarded Mood Description: Withdrawn Affect Description: Blunted Patient Cognition Impaired: Yes Ability to Follow Directions: Good Speech Pattern: Clear Hallucinations: None Delusions: Not Present Thought Process: Distracted and Slowed Thinking Thought Content: positive for Poverty of Content and positive for Thought Blocking Judgement: Poor Diagnostics Vital Signs (24Hr): Vital Signs - 24 hr 02/04/24 20:12 02/04/24 20:14 02/05/24 08:00 Temperature 99.0 F 100.2 F Pulse Rate 71 73 Respiratory Rate 17 16 Blood Pressure 113/50 L 113/50 L 101/60 Pulse Oximetry 97 99 Oxygen Delivery Method Room Air Room Air 02/05/24 09:29 Temperature Pulse Rate Respiratory Rate Blood Pressure 101/50 L Pulse Oximetry Oxygen Delivery Method BMI result Body Mass Index 30.6 Labs 01/05/24 11:49 02/04/24 07:17 Labs: Laboratory Results - last 48 hr 02/04/24 02/04/24 02/05/24 06:46 07:17 06:37 Creatinine 1.32 Estim Creat Clear Calc 69.3 Estimated GFR 55 POC Glucose 98 94 Imaging Radiology Impressions: ITS Impressions Chest X-Ray 01/07/24 13:27 IMPRESSION: Bronchial wall thickening may be infectious and/or inflammatory in etiology. Electronically signed by: Marianna Torres MD 01/07/2024 03:31 PM EDT RP Medications Medications Current Medications Acetaminophen (Acetaminophen 325 Mg Tablet) 650 mg PO Q6H PRN PRN Reason: Headache/Pain Mild Scale (1-3) Last Admin: 01/12/24 09:03 Dose: 650 mg Al Hydroxide/Mg Hydroxide (Magnesium Hydrox/Alum Hydrox 30 Ml Oral.Susp) 30 ml PO Q6H PRN PRN Reason: Heartburn/Nausea Clonidine HCl (Clonidine Hcl 0.1 Mg Tablet) 0.05 mg PO BID [facility]; Protocol Last Admin: 02/05/24 09:29 Dose: 0.05 mg Clozapine 200 mg/ Clozapine 50 (mg) 250 mg PO DAILY@1930 [facility] Last Admin: 02/04/24 20:14 Dose: 250 mg Docusate Sodium (Docusate Sodium 100 Mg Capsule) 100 mg PO BID [facility] Last Admin: 02/05/24 09:29 Dose: 100 mg Glucose (Glucose Gel 15 Gm Gel..Gram.) 15 gm PO Q15M PRN; Protocol PRN Reason: per Hypoglycemia Standing Ord. Hydroxyzine HCl (Hydroxyzine Hcl 25 Mg Tablet) 25 mg PO Q6H PRN PRN Reason: Anxiety Dextrose (D10) 250 mls @ 750 mls/hr IV Q15M PRN; Protocol PRN Reason: per Hypoglycemia Standing Ord. Insulin Human Lispro (Insulin Lispro 100 Unit/Ml 3 Ml Vial) 0 unit SUBCUT DAILY [facility]; Protocol Last Admin: 02/05/24 09:31 Dose: Not Given Lorazepam (Lorazepam 1 Mg Tablet) 2 mg PO TID [facility] Last Admin: 02/05/24 09:28 Dose: 2 mg Magnesium Hydroxide (Milk Of Magnesia 30 Ml Oral.Susp) 30 ml PO DAILY PRN PRN Reason: Constipation Last Admin: 01/11/24 12:48 Dose: 30 ml Omeprazole (Omeprazole 20 Mg Capsule.Dr) 20 mg PO DAILY@0630 [facility] Last Admin: 02/05/24 06:03 Dose: 20 mg Polyethylene Glycol (Polyethylene Glycol 3350 17 Gm Powd.Pack) 17 gm PO DAILY [facility] Last Admin: 02/05/24 09:31 Dose: 17 gm Senna (Sennosides 8.6 Mg Tablet) 17.2 mg PO BEDTIME [facility] Last Admin: 02/04/24 20:14 Dose: 17.2 mg Sertraline HCl (Sertraline Hcl 100 Mg Tablet) 100 mg PO BID [facility] Last Admin: 02/05/24 09:29 Dose: 100 mg Tamsulosin HCl (Tamsulosin Hcl 0.4 Mg Capsule) 0.4 mg PO BEDTIME [facility] Last Admin: 02/04/24 20:14 Dose: 0.4 mg Trazodone HCl (Trazodone Hcl 50 Mg Tablet) 50 mg PO BEDTIME MRX1 PRN PRN Reason: Insomnia Last Admin: 01/17/24 19:56 Dose: 50 mg Allergies Allergies Allergy/AdvReac Type Severity Reaction Status Date / Time No Known Allergies [NKA] Allergy Unknown NONE Verified 01/05/24 11:31 Assessment & Plan Assessment & Plan (1) Catatonia: Status: Acute Code(s): F06.1 - Catatonic disorder due to known physiological condition (2) Schizoaffective disorder, depressive type: Status: Acute Code(s): F25.1 - Schizoaffective disorder, depressive type (3) Essential (primary) hypertension: Status: Acute Code(s): I10 - Essential (primary) hypertension (4) Diabetes mellitus: Qualifiers: Diabetes mellitus type: type 2 Diabetes mellitus continuous churn buttermaker insulin use: without chcf use Diabetes mellitus complication status: with hyperglycemia Qualified Code(s): E11.65 - Type 2 diabetes mellitus with hyperglycemia Status: Acute Code(s): E11.9 - Type 2 diabetes mellitus without complications (5) Sleep apnea: Status: Acute Code(s): G47.30 - Sleep apnea, unspecified Plan 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 Patient not tolerating combination of clozapine and lorazepam appears overly sedated lethargic remains blunted psychomotor retarded with catatonia. Will lower Ativan to 1 mg 3 times a day lower clozapine to 250 mg hopefully patient will be more alert and we can better tease out catatonia versus medication induced lethargy on top of that. The patient has had a complicated response in the past to ECT. Last year did seem to help him in some years past the patient did have a course of over 10 treatments that did not help with his catatonia and eventually responded to combination of clozapine and lorazepam. stop abilify If patient becomes more alert will try and see if he is able to possibly consent for ECT which he has done in the past there was a lot of negative feedback from a family member which had been difficult for the patient to deal with. There is a court hearing for treatment order and retention scheduled past records in responses extensively reviewed 01/18/24 cont current tx plan improvement noted abilify d/c in context of catatonia monitor response to dec clozapine lower ativan . trying to balance catatonia tx vs oversedation ect remains possible option but pt improved today 02/03 intermittent worsening of catatonia. continue tx. Plan 1. Continue with Clozaril and Ativan. 2. We will reassess the possibility of ECT with his father. His father has adamantly refused this treatment option. 3. The patient is conditional voluntary by healthcare proxy 4. The patient remains with some catatonic symptoms but slightly better. We will wait. Reason for continued inpatient stay Substantial Risk for: inability to function, rapid decompensation and med/psych decompensation Time Spent With Patient Time: Total time managing care of this patient today __20__ minutes.
[2024-02-05 20:00] VITALS: BP 106/56; PULSE 71; RESP 18; TEMP 36.6
[2024-02-05] MEDS: Tamsulosin HCL 0.4 MG CAPSULE PO (20:15)
[2024-02-05] MEDS: cloZAPine 200 MG, cloZAPine 50 MG 250 MG PO (20:16)
[2024-02-05] MEDS: Sennosides 8.6 MG TABLET 17.2 MG PO (20:17)
[2024-02-06] MEDS: Omeprazole 20 MG CAPSULE.DR PO (06:24)
[2024-02-06 06:54] LABS: Glucose, Whole Blood 103 mg/dL (60-115)
[2024-02-06 08:00] VITALS: BP 109/63; PULSE 77; RESP 18; TEMP 37.1; O2SAT 95
[2024-02-06] MEDS: cloNIDine HCL 0.1 MG TABLET 0.05 MG PO ×2 (09:15→20:42)
[2024-02-06] MEDS: Docusate Sodium 100 MG CAPSULE PO ×2 (09:15→20:42)
[2024-02-06] MEDS: Sertraline HCL 100 MG TABLET PO ×2 (09:15→20:42)
[2024-02-06] MEDS: LORazepam 1 MG TABLET 2 MG PO ×3 (09:16→22:08)
[2024-02-06] MEDS: polyethylene glycoL 3350 17 GM POWD.PACK PO (09:16)
--- NOTE | 2024-02-06 13:45 | P.PNPSI_ITS ---
Subjective Subjective Date of Service: 02/06/24 Reason For Visit: catatonia Subjective Notes: Conditional Voluntary Interim History: The nursing staff reported no changes in his mental status, he goes out and goes to the bathroom by himself and have meals but he is isolative with delayed response. On interview the patient denies new symptoms. Today we met with the his father and explained the lack of response since he needs ECT. Mental Status Exam Mental Status Exam Patient Appearance: Appropriate Patient Orientation: Person and Situation Level of Consciousness: Awake and Appropriate Patient Behavior: Guarded and Passive Mood Description: Calm Affect Description: Constricted Patient Cognition Impaired: Yes Ability to Follow Directions: Good Speech Pattern: Clear Hallucinations: None Delusions: Not Present Thought Process: Distracted and Slowed Thinking Thought Content: positive for [place] and positive for Thought Blocking Judgement: Poor Diagnostics Vital Signs (24Hr): Vital Signs - 24 hr 02/05/24 20:00 02/06/24 08:00 Temperature 97.8 F 98.8 F Pulse Rate 71 77 Respiratory Rate 18 18 Blood Pressure 106/56 L 109/63 Pulse Oximetry 95 Oxygen Delivery Method Room Air Room Air BMI result Body Mass Index 30.6 Labs 01/05/24 11:49 02/04/24 07:17 Labs: Laboratory Results - last 48 hr 02/05/24 02/06/24 06:37 06:46 POC Glucose 94 103 Imaging Radiology Impressions: ITS Impressions Chest X-Ray 01/07/24 13:27 IMPRESSION: Bronchial wall thickening may be infectious and/or inflammatory in etiology. Electronically signed by: Marianna Torres MD 01/07/2024 03:31 PM EDT Medications Medications Current Medications Acetaminophen (Acetaminophen 325 Mg Tablet) 650 mg PO Q6H PRN PRN Reason: Headache/Pain Mild Scale (1-3) Last Admin: 01/12/24 09:03 Dose: 650 mg Al Hydroxide/Mg Hydroxide (Magnesium Hydrox/Alum Hydrox 30 Ml Oral.Susp) 30 ml PO Q6H PRN PRN Reason: Heartburn/Nausea Clonidine HCl (Clonidine Hcl 0.1 Mg Tablet) 0.05 mg PO BID [facility]; Protocol Last Admin: 02/06/24 09:15 Dose: 0.05 mg Clozapine 200 mg/ Clozapine 50 (mg) 250 mg PO DAILY@1930 [facility] Last Admin: 02/05/24 20:16 Dose: 250 mg Docusate Sodium (Docusate Sodium 100 Mg Capsule) 100 mg PO BID [facility] Last Admin: 02/06/24 09:15 Dose: 100 mg Glucose (Glucose Gel 15 Gm Gel..Gram.) 15 gm PO Q15M PRN; Protocol PRN Reason: per Hypoglycemia Standing Ord. Hydroxyzine HCl (Hydroxyzine Hcl 25 Mg Tablet) 25 mg PO Q6H PRN PRN Reason: Anxiety Dextrose (D10) 250 mls @ 750 mls/hr IV Q15M PRN; Protocol PRN Reason: per Hypoglycemia Standing Ord. Insulin Human Lispro (Insulin Lispro 100 Unit/Ml 3 Ml Vial) 0 unit SUBCUT DAILY [facility]; Protocol Last Admin: 02/06/24 07:33 Dose: Not Given Lorazepam (Lorazepam 1 Mg Tablet) 2 mg PO TID [facility] Last Admin: 02/06/24 09:16 Dose: 2 mg Magnesium Hydroxide (Milk Of Magnesia 30 Ml Oral.Susp) 30 ml PO DAILY PRN PRN Reason: Constipation Last Admin: 01/11/24 12:48 Dose: 30 ml Omeprazole (Omeprazole 20 Mg Capsule.Dr) 20 mg PO DAILY@0630 [facility] Last Admin: 02/06/24 06:24 Dose: 20 mg Polyethylene Glycol (Polyethylene Glycol 3350 17 Gm Powd.Pack) 17 gm PO DAILY [facility] Last Admin: 02/06/24 09:16 Dose: 17 gm Senna (Sennosides 8.6 Mg Tablet) 17.2 mg PO BEDTIME [facility] Last Admin: 02/05/24 20:17 Dose: 17.2 mg Sertraline HCl (Sertraline Hcl 100 Mg Tablet) 100 mg PO BID [facility] Last Admin: 02/06/24 09:15 Dose: 100 mg Tamsulosin HCl (Tamsulosin Hcl 0.4 Mg Capsule) 0.4 mg PO BEDTIME [facility] Last Admin: 02/05/24 20:15 Dose: 0.4 mg Trazodone HCl (Trazodone Hcl 50 Mg Tablet) 50 mg PO BEDTIME MRX1 PRN PRN Reason: Insomnia Last Admin: 01/17/24 19:56 Dose: 50 mg Allergies Allergies Allergy/AdvReac Type Severity Reaction Status Date / Time No Known Allergies [NKA] Allergy Unknown NONE Verified 01/05/24 11:31 Assessment & Plan Assessment & Plan (1) Catatonia: Status: Acute Code(s): F06.1 - Catatonic disorder due to known physiological condition (2) Schizoaffective disorder, depressive type: Status: Acute Code(s): F25.1 - Schizoaffective disorder, depressive type (3) Essential (primary) hypertension: Status: Acute Code(s): I10 - Essential (primary) hypertension (4) Diabetes mellitus: Qualifiers: Diabetes mellitus complication status: with hyperglycemia Diabetes mellitus fpc insulin use: without fpc use Diabetes mellitus type: t ype 2 Qualified Code(s): E11.65 - Type 2 diabetes mellitus with hyperglycemia Status: Acute Code(s): E11.9 - Type 2 diabetes mellitus without complications (5) Sleep apnea: Status: Acute Code(s): G47.30 - Sleep apnea, unspecified Plan 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 Patient not tolerating combination of clozapine and lorazepam appears overly sedated lethargic remains blunted psychomotor retarded with catatonia. Will lower Ativan to 1 mg 3 times a day lower clozapine to 250 mg hopefully patient will be more alert and we can better tease out catatonia versus medication induced lethargy on top of that. The patient has had a complicated response in the past to ECT. Last year did seem to help him in some years past the patient did have a course of over 10 treatments that did not help with his catatonia and eventually responded to combination of clozapine and lorazepam. stop abilify If patient becomes more alert will try and see if he is able to possibly consent for ECT which he has done in the past there was a lot of negative feedback from a family member which had been difficult for the patient to deal with. There is a court hearing for treatment order and retention scheduled past records in responses extensively reviewed 01/18/24 cont current tx plan improvement noted abilify d/c in context of catatonia monitor response to dec clozapine lower ativan . trying to balance catatonia tx vs oversedation ect remains possible option but pt improved today 11/10 intermittent worsening of catatonia. continue tx. Plan 1. Continue with Clozaril and Ativan. 2. We will reassess the possibility of ECT with his father. His father has adamantly refused this treatment option. 3. The patient is conditional voluntary by healthcare proxy 4. The patient remains with some catatonic symptoms but slightly better. We will wait. Reason for continued inpatient stay Substantial Risk for: inability to function, rapid decompensation and med/psych decompensation Time Spent With Patient Time: Total time managing care of this patient today __20__ minutes.
[2024-02-06 20:00] VITALS: BP 127/69; PULSE 73; RESP 18; TEMP 36.6; O2SAT 95
[2024-02-06] MEDS: cloZAPine 200 MG, cloZAPine 50 MG 250 MG PO (20:41)
[2024-02-06] MEDS: Tamsulosin HCL 0.4 MG CAPSULE PO (20:42)
[2024-02-06] MEDS: Sennosides 8.6 MG TABLET 17.2 MG PO (20:42)
[2024-02-07] MEDS: Omeprazole 20 MG CAPSULE.DR PO (06:08)
[2024-02-07 07:11] LABS: Glucose, Whole Blood 118 mg/dL (60-115)
[2024-02-07 08:00] VITALS: BP 129/65; PULSE 72; RESP 18; TEMP 36.4; O2SAT 95
[2024-02-07] MEDS: Sertraline HCL 100 MG TABLET PO (08:55)
[2024-02-07] MEDS: Docusate Sodium 100 MG CAPSULE PO (08:55)
[2024-02-07] MEDS: cloNIDine HCL 0.1 MG TABLET 0.05 MG PO (08:55)
[2024-02-07] MEDS: polyethylene glycoL 3350 17 GM POWD.PACK PO (08:55)
[2024-02-07] MEDS: LORazepam 1 MG TABLET 2 MG PO ×2 (09:01→15:29)
--- NOTE | 2024-02-07 11:50 | HO.PSYCHPN ---
Subjective Subjective Date of Service: 02/07/24 Reason For Visit: catatonia Subjective Notes: Conditional Voluntary Healthcare Proxy: Yes Interim History: The nursing staff reported the patient had been on his bed most of the time slept I hours. Yesterday we had a family meeting with the social service liaison and his father and the father was open for ECT if he is not responding with benzodiazepines. On interview the patient remains catatonic. We are going to wait this week and if he does not improved with p.o. Ativan we are going to start ECT next week. Mental Status Exam Mental Status Exam Patient Appearance: Appropriate Patient Orientation: Person and Situation Level of Consciousness: Awake and Appropriate Patient Behavior: Guarded and Passive Mood Description: Withdrawn Affect Description: Constricted Patient Cognition Impaired: Yes Ability to Follow Directions: Good Speech Pattern: Clear Hallucinations: None Delusions: Not Present Thought Process: Distracted and Slowed Thinking Thought Content: positive for Poverty of Content and positive for Thought Blocking Judgement: Fair Diagnostics Vital Signs (24Hr): Vital Signs - 24 hr 02/06/24 20:00 02/07/24 08:00 Temperature 97.9 F 97.5 F Pulse Rate 73 72 Respiratory Rate 18 18 Blood Pressure 127/69 129/65 Pulse Oximetry 95 95 Oxygen Delivery Method Room Air Room Air BMI result Body Mass Index 30.6 Labs 01/05/24 11:49 02/04/24 07:17 Labs: Laboratory Results - last 48 hr 02/06/24 02/07/24 06:46 06:57 POC Glucose 103 118 H Imaging Radiology Impressions: ITS Impressions Chest X-Ray 01/07/24 13:27 IMPRESSION: Bronchial wall thickening may be infectious and/or inflammatory in etiology. Electronically signed by: Marianna Torres MD 01/07/2024 03:31 PM EDT RP Medications Medications Current Medications Acetaminophen (Acetaminophen 325 Mg Tablet) 650 mg PO Q6H PRN PRN Reason: Headache/Pain Mild Scale (1-3) Last Admin: 01/12/24 09:03 Dose: 650 mg Al Hydroxide/Mg Hydroxide (Magnesium Hydrox/Alum Hydrox 30 Ml Oral.Susp) 30 ml PO Q6H PRN PRN Reason: Heartburn/Nausea Clonidine HCl (Clonidine Hcl 0.1 Mg Tablet) 0.05 mg PO BID [facility]; Protocol Last Admin: 02/07/24 08:55 Dose: 0.05 mg Clozapine 200 mg/ Clozapine 50 (mg) 250 mg PO DAILY@1930 [facility] Last Admin: 02/06/24 20:41 Dose: 250 mg Docusate Sodium (Docusate Sodium 100 Mg Capsule) 100 mg PO BID [facility] Last Admin: 02/07/24 08:55 Dose: 100 mg Glucose (Glucose Gel 15 Gm Gel..Gram.) 15 gm PO Q15M PRN; Protocol PRN Reason: per Hypoglycemia Standing Ord. Hydroxyzine HCl (Hydroxyzine Hcl 25 Mg Tablet) 25 mg PO Q6H PRN PRN Reason: Anxiety Dextrose (D10) 250 mls @ 750 mls/hr IV Q15M PRN; Protocol PRN Reason: per Hypoglycemia Standing Ord. Insulin Human Lispro (Insulin Lispro 100 Unit/Ml 3 Ml Vial) 0 unit SUBCUT DAILY [facility]; Protocol Last Admin: 02/07/24 09:02 Dose: Not Given Lorazepam (Lorazepam 1 Mg Tablet) 2 mg PO TID [facility] Last Admin: 02/07/24 09:01 Dose: 2 mg Magnesium Hydroxide (Milk Of Magnesia 30 Ml Oral.Susp) 30 ml PO DAILY PRN PRN Reason: Constipation Last Admin: 01/11/24 12:48 Dose: 30 ml Omeprazole (Omeprazole 20 Mg Capsule.Dr) 20 mg PO DAILY@0630 [facility] Last Admin: 02/07/24 06:08 Dose: 20 mg Polyethylene Glycol (Polyethylene Glycol 3350 17 Gm Powd.Pack) 17 gm PO DAILY [facility] Last Admin: 02/07/24 08:55 Dose: 17 gm Senna (Sennosides 8.6 Mg Tablet) 17.2 mg PO BEDTIME [facility] Last Admin: 02/06/24 20:42 Dose: 17.2 mg Sertraline HCl (Sertraline Hcl 100 Mg Tablet) 100 mg PO BID [facility] Last Admin: 02/07/24 08:55 Dose: 100 mg Tamsulosin HCl (Tamsulosin Hcl 0.4 Mg Capsule) 0.4 mg PO BEDTIME [facility] Last Admin: 02/06/24 20:42 Dose: 0.4 mg Trazodone HCl (Trazodone Hcl 50 Mg Tablet) 50 mg PO BEDTIME MRX1 PRN PRN Reason: Insomnia Last Admin: 01/17/24 19:56 Dose: 50 mg Allergies Allergies Allergy/AdvReac Type Severity Reaction Status Date / Time No Known Allergies [NKA] Allergy Unknown NONE Verified 01/05/24 11:31 Assessment & Plan Assessment & Plan (1) Catatonia: Status: Acute Code(s): F06.1 - Catatonic disorder due to known physiological condition (2) Schizoaffective disorder, depressive type: Status: Acute Code(s): F25.1 - Schizoaffective disorder, depressive type (3) Essential (primary) hypertension: Status: Acute Code(s): I10 - Essential (primary) hypertension (4) Diabetes mellitus: Qualifiers: Diabetes mellitus complication status: with hyperglycemia Diabetes mellitus terminal carman insulin use: without terminal carman use Diabetes mellitus type: type 2 Qualified Code(s): E11.65 - Type 2 diabetes mellitus with hyperglycemia Status: Acute Code(s): E11.9 - Type 2 diabetes mellitus without complications (5) Sleep apnea: Status: Acute Code(s): G47.30 - Sleep apnea, unspecified Plan 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 Patient not tolerating combination of clozapine and lorazepam appears overly sedated lethargic remains blunted psychomotor retarded with catatonia. Will lower Ativan to 1 mg 3 times a day lower clozapine to 250 mg hopefully patient will be more alert and we can better tease out catatonia versus medication induced lethargy on top of that. The patient has had a complicated response in the past to ECT. Last year did seem to help him in some years past the patient did have a course of over 10 treatments that did not help with his catatonia and eventually responded to combination of clozapine and lorazepam. stop abilify If patient becomes more alert will try and see if he is able to possibly consent for ECT which he has done in the past there was a lot of negative feedback from a family member which had been difficult for the patient to deal with. There is a court hearing for treatment order and retention scheduled past records in responses extensively reviewed 01/18/24 cont current tx plan improvement noted abilify d/c in context of catatonia monitor response to dec clozapine lower ativan . trying to balance catatonia tx vs oversedation ect remains possible option but pt improved today 02/03 intermittent worsening of catatonia. continue tx. Plan 1. Continue with Clozaril and Ativan. 2. We will reassess the possibility of ECT with his father. His father has adamantly refused this treatment option. 3. The patient is conditional voluntary by healthcare proxy 4. The patient remains with some catatonic symptoms but slightly better. We will wait. Reason for continued inpatient stay Substantial Risk for: inability to function, rapid decompensation and med/psych decompensation Time Spent With Patient Time: Total time managing care of this patient today __20__ minutes.
[2024-02-07 20:00] VITALS: BP 126/70; PULSE 72; RESP 16; TEMP 36.6; O2SAT 97
--- NOTE | 2024-02-08 | ECG_ITS ---
Test Reason : ECT CLEARENCE Blood Pressure : / mmHG Vent. Rate : 087 BPM Atrial Rate : 087 BPM P-R Int : 148 ms QRS Dur : 078 ms QT Int : 352 ms P-R-T Axes : 052 026 022 degrees QTc Int : 423 ms Normal sinus rhythm Nonspecific T wave abnormality Abnormal ECG When compared with ECG of 05-JAN-2024 12:06, Nonspecific T wave abnormality now evident in Inferior leads Referred By: Poncho Beauchamp Electronically Signed By:Homer Paige
[2024-02-08] MEDS: Omeprazole 20 MG CAPSULE.DR PO (06:21)
[2024-02-08 06:44] LABS: Glucose, Whole Blood 117 mg/dL (60-115)
[2024-02-08 08:00] VITALS: BP 131/65; PULSE 82; RESP 16; TEMP 36.5; O2SAT 94
[2024-02-08] MEDS: Docusate Sodium 100 MG CAPSULE PO ×2 (09:28→20:37)
[2024-02-08] MEDS: Sertraline HCL 100 MG TABLET PO ×2 (09:28→20:35)
[2024-02-08] MEDS: cloNIDine HCL 0.1 MG TABLET 0.05 MG PO ×2 (09:29→20:36)
[2024-02-08] MEDS: LORazepam 1 MG TABLET 2 MG PO ×3 (09:29→20:36)
[2024-02-08] MEDS: polyethylene glycoL 3350 17 GM POWD.PACK PO (09:41)
--- NOTE | 2024-02-08 14:24 | P.PNPSI_ITS ---
Subjective Subjective Date of Service: 02/08/24 Reason For Visit: catatonia Subjective Notes: Conditional Voluntary Interim History: The nursing staff reported the patient remains catatonic, limited speech. He had refused his medications last night. Today her father came and visit him, advise him to continue treatment. We are going to start ECT next week if he does not improve in the next days. Mental Status Exam Mental Status Exam Patient Orientation: Person and Situation Level of Consciousness: Awake and Appropriate Patient Behavior: Guarded and Passive Mood Description: Withdrawn Affect Description: Constricted Patient Cognition Impaired: Yes Ability to Follow Directions: Good Speech Pattern: Clear Hallucinations: None Delusions: Not Present Thought Process: Distracted and Slowed Thinking Thought Content: positive for [place] and positive for Poverty of Content Judgement: Poor Diagnostics Vital Signs (24Hr): Vital Signs - 24 hr 02/07/24 20:00 02/08/24 08:00 Temperature 98 F 97.7 F Pulse Rate 72 82 Respiratory Rate 16 16 Blood Pressure 126/70 131/65 Pulse Oximetry 97 94 Oxygen Delivery Method Room Air Room Air BMI result Body Mass Index 30.6 Labs 01/05/24 11:49 02/04/24 07:17 Labs: Laboratory Results - last 48 hr 02/07/24 02/08/24 06:57 06:32 POC Glucose 118 H 117 H Imaging Radiology Impressions: ITS Impressions Chest X-Ray 01/07/24 13:27 IMPRESSION: Bronchial wall thickening may be infectious and/or inflammatory in etiology. Electronically signed by: Marianna Torres MD 01/07/2024 03:31 PM EDT RP Medications Medications Current Medications Acetaminophen (Acetaminophen 325 Mg Tablet) 650 mg PO Q6H PRN PRN Reason: Headache/Pain Mild Scale (1-3) Last Admin: 01/12/24 09:03 Dose: 650 mg Al Hydroxide/Mg Hydroxide (Magnesium Hydrox/Alum Hydrox 30 Ml Oral.Susp) 30 ml PO Q6H PRN PRN Reason: Heartburn/Nausea Clonidine HCl (Clonidine Hcl 0.1 Mg Tablet) 0.05 mg PO BID [facility]; Protocol Last Admin: 02/08/24 09:29 Dose: 0.05 mg Clozapine 200 mg/ Clozapine 50 (mg) 250 mg PO DAILY@1930 [facility] Last Admin: 02/07/24 20:26 Dose: Not Given Docusate Sodium (Docusate Sodium 100 Mg Capsule) 100 mg PO BID [facility] Last Admin: 02/08/24 09:28 Dose: 100 mg Glucose (Glucose Gel 15 Gm Gel..Gram.) 15 gm PO Q15M PRN; Protocol PRN Reason: per Hypoglycemia Standing Ord. Hydroxyzine HCl (Hydroxyzine Hcl 25 Mg Tablet) 25 mg PO Q6H PRN PRN Reason: Anxiety Dextrose (D10) 250 mls @ 750 mls/hr IV Q15M PRN; Protocol PRN Reason: per Hypoglycemia Standing Ord. Insulin Human Lispro (Insulin Lispro 100 Unit/Ml 3 Ml Vial) 0 unit SUBCUT DAILY [facility]; Protocol Last Admin: 02/08/24 10:27 Dose: Not Given Lorazepam (Lorazepam 1 Mg Tablet) 2 mg PO TID [facility] Last Admin: 02/08/24 09:29 Dose: 2 mg Magnesium Hydroxide (Milk Of Magnesia 30 Ml Oral.Susp) 30 ml PO DAILY PRN PRN Reason: Constipation Last Admin: 01/11/24 12:48 Dose: 30 ml Omeprazole (Omeprazole 20 Mg Capsule.Dr) 20 mg PO DAILY@0630 [facility] Last Admin: 02/08/24 06:21 Dose: 20 mg Polyethylene Glycol (Polyethylene Glycol 3350 17 Gm Powd.Pack) 17 gm PO DAILY [facility] Last Admin: 02/08/24 09:41 Dose: 17 gm Senna (Sennosides 8.6 Mg Tablet) 17.2 mg PO BEDTIME [facility] Last Admin: 02/07/24 20:27 Dose: Not Given Sertraline HCl (Sertraline Hcl 100 Mg Tablet) 100 mg PO BID [facility] Last Admin: 02/08/24 09:28 Dose: 100 mg Tamsulosin HCl (Tamsulosin Hcl 0.4 Mg Capsule) 0.4 mg PO BEDTIME [facility] Last Admin: 02/07/24 20:28 Dose: Not Given Trazodone HCl (Trazodone Hcl 50 Mg Tablet) 50 mg PO BEDTIME MRX1 PRN PRN Reason: Insomnia Last Admin: 01/17/24 19:56 Dose: 50 mg Allergies Allergies Allergy/AdvReac Type Severity Reaction Status Date / Time No Known Allergies [NKA] Allergy Unknown NONE Verified 01/05/24 11:31 Assessment & Plan Assessment & Plan (1) Catatonia: Status: Acute Code(s): F06.1 - Catatonic disorder due to known physiological condition (2) Schizoaffective disorder, depressive type: Status: Acute Code(s): F25.1 - Schizoaffective disorder, depressive type (3) Essential (primary) hypertension: Status: Acute Code(s): I10 - Essential (primary) hypertension (4) Diabetes mellitus: Qualifiers: Diabetes mellitus complication status: with hyperglycemia Diabetes mellitus cmm programmer insulin use: without cmm programmer use Diabetes mellitus type: t ype 2 Qualified Code(s): E11.65 - Type 2 diabetes mellitus with hyperglycemia Status: Acute Code(s): E11.9 - Type 2 diabetes mellitus without complications (5) Sleep apnea: Status: Acute Code(s): G47.30 - Sleep apnea, unspecified Plan 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 Patient not tolerating combination of clozapine and lorazepam appears overly sedated lethargic remains blunted psychomotor retarded with catatonia. Will lower Ativan to 1 mg 3 times a day lower clozapine to 250 mg hopefully patient will be more alert and we can better tease out catatonia versus medication induced lethargy on top of that. The patient has had a complicated response in the past to ECT. Last year did seem to help him in some years past the patient did have a course of over 10 treatments that did not help with his catatonia and eventually responded to combination of clozapine and lorazepam. stop abilify If patient becomes more alert will try and see if he is able to possibly consent for ECT which he has done in the past there was a lot of negative feedback from a family member which had been difficult for the patient to deal with. There is a court hearing for treatment order and retention scheduled past records in responses extensively reviewed 01/18/24 cont current tx plan improvement noted abilify d/c in context of catatonia monitor response to dec clozapine lower ativan . trying to balance catatonia tx vs oversedation ect remains possible option but pt improved today 02/03 intermittent worsening of catatonia. continue tx. Plan 1. Continue with Clozaril and Ativan. 2. We will reassess the possibility of ECT with his father. His father has adamantly refused this treatment option. Later on, he is open to this since he has failed benzodiazepines p.o. 3. The patient is conditional voluntary by healthcare proxy 4. The patient remains with some catatonic symptoms but slightly better. We will wait. 5. Start clearance for ECT. Reason for continued inpatient stay Substantial Risk for: inability to function, rapid decompensation and med/psych decompensation Time Spent With Patient Time: Total time managing care of this patient today __20__ minutes.
[2024-02-08 15:27] VITALS: BMI 30.7
[2024-02-08 20:00] VITALS: BP 144/79; PULSE 80; RESP 16; TEMP 36.6; O2SAT 95
[2024-02-08] MEDS: cloZAPine 200 MG, cloZAPine 50 MG 250 MG PO (20:34)
[2024-02-08] MEDS: Sennosides 8.6 MG TABLET 17.2 MG PO (20:35)
[2024-02-08 20:36] VITALS: BP 133/71
[2024-02-08] MEDS: Tamsulosin HCL 0.4 MG CAPSULE PO (20:38)
[2024-02-09] MEDS: Omeprazole 20 MG CAPSULE.DR PO (06:41)
[2024-02-09 06:56] LABS: Glucose, Whole Blood 121 mg/dL (60-115)
[2024-02-09 08:00] VITALS: BP 122/50; PULSE 68; RESP 16; TEMP 36.9; O2SAT 94
[2024-02-09 08:05] LABS: Neut%MD 70.2 %; Neutrophils Absolute Auto 3.9 x10*3/uL (2.0-8.3); WBCANC 5.6 X10*3/uL
[2024-02-09] MEDS: Docusate Sodium 100 MG CAPSULE PO ×2 (08:26→20:58)
[2024-02-09] MEDS: Sertraline HCL 100 MG TABLET PO ×2 (08:27→20:57)
[2024-02-09] MEDS: cloNIDine HCL 0.1 MG TABLET 0.05 MG PO ×2 (08:27→20:58)
[2024-02-09] MEDS: LORazepam 1 MG TABLET 2 MG PO (08:27)
[2024-02-09] MEDS: polyethylene glycoL 3350 17 GM POWD.PACK PO (08:29)
--- NOTE | 2024-02-09 11:41 | HO.ECTCONS_ITS ---
History of Present Illness Data of Consult Service Date: 02/09/24 Primary Care Provider: Jonn Smith MD HPI Reason for consult: ECT clearance Patient is a 58-year-old male with a PMH significant for HTN, [id number] type 2 diabetes, BPH, schizoaffective disorder, and depression with catatonia admitted to [facility] with hospitalist consult ECT risk stratification. Patient seen and evaluated on the unit where he is initially noted to be sitting comfortably in the common area eating lunch. Patient is overall a poor historian and his marked delay in response, sometimes taking up to 1 minute before responding to a question. Patient also sometimes does not respond to queries. HPI and ros thus limited. However, review of records indicates patient has undergone ECT multiple times in the past without apparent complications. Patient currently denies any acute medical complaints, including SOB or chest pain. No nausea, vomiting, or abdominal pain. EKG reviewed which showed normal sinus rhythm with QTc WNL at 04:23 without evidence of significant ST elevations or depressions. Review of Systems 2 Review of Systems: Negative except for that which is stated in the HPI, though ROS admittedly difficult to obtain as patient has history of catatonia and with marked delay in response, occasionally not answering questions PMFSH Medical History Mild sleep apnea Nocturnal hypoxia Routine medical exam Joint inflammation of right hand and wrist Status post fall Adult general medical exam Screening for colon cancer Screening for prostate cancer Cough Schizophrenia, catatonic BPH (benign prostatic hyperplasia) Essential (primary) hypertension Diabetes mellitus Family History Mother Cancer Father Kidney agenesis Surgical History History of colonoscopy (~06/15/21) History of tooth extraction History of root canal procedure Social History Household Members: None Housing: Apartment Do you presently have visiting nurse or other home services: Yes Unable to assess alcohol history related to: Unable to respond Alcohol intake: former Comment: 1:1 Patient Tobacco Use Status: Never used Tobacco e-Cigarette/Vaping Use: Never Used Second Hand Smoke Exposure: No service: No Current occupational status: employed Sexual orientation: Straight/Heterosexual Cognitive needs: No Hearing needs: No Vision needs: No Meds Allergies Allergy/AdvReac Type Severity Reaction Status Date / Time No Known Allergies [NKA] Allergy Unknown NONE Verified 01/05/24 11:31 Active Medications: Current Medications Acetaminophen (Acetaminophen 325 Mg Tablet) 650 mg PO Q6H PRN PRN Reason: Headache/Pain Mild Scale (1-3) Last Admin: 01/12/24 09:03 Dose: 650 mg Al Hydroxide/Mg Hydroxide (Magnesium Hydrox/Alum Hydrox 30 Ml Oral.Susp) 30 ml PO Q6H PRN PRN Reason: Heartburn/Nausea Clonidine HCl (Clonidine Hcl 0.1 Mg Tablet) 0.05 mg PO BID [facility]; Protocol Last Admin: 02/09/24 08:27 Dose: 0.05 mg Clozapine 200 mg/ Clozapine 50 (mg) 250 mg PO DAILY@1930 [facility] Last Admin: 02/08/24 20:34 Dose: 250 mg Docusate Sodium (Docusate Sodium 100 Mg Capsule) 100 mg PO BID [facility] Last Admin: 02/09/24 08:26 Dose: 100 mg Glucose (Glucose Gel 15 Gm Gel..Gram.) 15 gm PO Q15M PRN; Protocol PRN Reason: per Hypoglycemia Standing Ord. Hydroxyzine HCl (Hydroxyzine Hcl 25 Mg Tablet) 25 mg PO Q6H PRN PRN Reason: Anxiety Dextrose (D10) 250 mls @ 750 mls/hr IV Q15M PRN; Protocol PRN Reason: per Hypoglycemia Standing Ord. Insulin Human Lispro (Insulin Lispro 100 Unit/Ml 3 Ml Vial) 0 unit SUBCUT DAILY [facility]; Protocol Last Admin: 02/09/24 10:22 Dose: Not Given Magnesium Hydroxide (Milk Of Magnesia 30 Ml Oral.Susp) 30 ml PO DAILY PRN PRN Reason: Constipation Last Admin: 01/11/24 12:48 Dose: 30 ml Omeprazole (Omeprazole 20 Mg Capsule.Dr) 20 mg PO DAILY@0630 [facility] Last Admin: 02/09/24 06:41 Dose: 20 mg Polyethylene Glycol (Polyethylene Glycol 3350 17 Gm Powd.Pack) 17 gm PO DAILY [facility] Last Admin: 02/09/24 08:29 Dose: 17 gm Senna (Sennosides 8.6 Mg Tablet) 17.2 mg PO BEDTIME [facility] Last Admin: 02/08/24 20:35 Dose: 17.2 mg Sertraline HCl (Sertraline Hcl 100 Mg Tablet) 100 mg PO BID [facility] Last Admin: 02/09/24 08:27 Dose: 100 mg Tamsulosin HCl (Tamsulosin Hcl 0.4 Mg Capsule) 0.4 mg PO BEDTIME [facility] Last Admin: 02/08/24 20:38 Dose: 0.4 mg Trazodone HCl (Trazodone Hcl 50 Mg Tablet) 50 mg PO BEDTIME MRX1 PRN PRN Reason: Insomnia Last Admin: 01/17/24 19:56 Dose: 50 mg Home Medications ?Medication ?Instructions ?Recorded ?Confirmed ?Last Taken ?Type aripiprazole 5 mg tablet 5 mg PO BEDTIME 01/05/24 01/05/24 01/03/24 History lithium carbonate 300 mg capsule 300 mg PO BID 01/05/24 01/05/24 01/05/24 History omeprazole 20 mg capsule,delayed 20 mg PO DAILY@0630 01/05/24 01/05/24 01/05/24 History release polyethylene glycol 3350 17 17 g PO DAILY 01/05/24 01/05/24 01/05/24 History gram/dose oral powder (Miralax) sennosides 8.6 mg tablet (senna) 17.2 mg PO BEDTIME 01/05/24 01/05/24 01/05/24 History tamsulosin 0.4 mg capsule 0.4 mg PO BEDTIME 01/05/24 01/05/24 01/03/24 History Physical Exam 2 Vital Signs and Narrative: Vital Signs: Last Vital Signs Temp 98.5 F 02/09/24 08:00 Pulse 68 02/09/24 08:00 Resp 16 02/09/24 08:00 BP 122/50 L 02/09/24 08:00 Pulse Ox 94 02/09/24 08:00 O2 Del Method Room Air 02/09/24 08:00 BMI result Body Mass Index 30.7 General: AOx3, no acute distress Resp: CTA bilaterally CVS: S1, S2, RRR GI: +BS, NT, no distention Skin: Warm, dry Neuro: Cranial nerves II-XII grossly intact bilaterally. Motor grossly intact bilaterally. Marked delay in response to worries, though answering appropriately when he does respond Extremities: No edema Psych: Flat affect, slow verbal response Results Labs 01/05/24 11:49 02/04/24 07:17 Labs: Laboratory Results - last 24 hr 02/09/24 02/09/24 06:40 07:57 Absolute Neuts (auto) 3.9 POC Glucose 121 H Assessment and Plan (1) Pre-op evaluation: Status: Acute Plan Patient is a 58-year-old male with a PMH significant for HTN, [id number] type 2 diabetes, BPH, schizoaffective disorder, and depression with catatonia admitted to [facility] psych with hospitalist consult ECT risk stratification. ECT risk stratification Patient with history of multiple prior ECT without apparent complications No apparent acute medical complaints, vitals and EKG reassuring RCRI class 1 risk, 0 points; no additional cardiac workup indicated Based on patient's history, exam, and EKG, there are no apparent contraindications for the planned procedure Thank you for allowing us to participate in the care of this patient. Signing off at this time. Please re-consult if any acute complaints or issues arise.
--- NOTE | 2024-02-09 12:01 | P.PNPSI_ITS ---
Subjective Subjective Date of Service: 02/09/24 Reason For Visit: catatonia Subjective Notes: Conditional Voluntary Interim History: The nursing staff reported the patient had been catatonic, he goes out for meals and sometimes he is nonsensical. The occupational therapist reported that he answered yesterday inappropriately. On interview the patient remains selectively mute. Mental Status Exam Mental Status Exam Patient Appearance: Appropriate Patient Orientation: Person and Situation Level of Consciousness: Awake Patient Behavior: Guarded and Passive Mood Description: Withdrawn Affect Description: Withdrawn Patient Cognition Impaired: Yes Ability to Follow Directions: Good Speech Pattern: Clear Hallucinations: None Delusions: Ideas of Reference Thought Process: Distracted and Slowed Thinking Thought Content: positive for [place] and positive for Poverty of Content Judgement: Poor Diagnostics Vital Signs (24Hr): Vital Signs - 24 hr 02/08/24 20:00 02/08/24 20:36 02/09/24 08:00 Temperature 98 F 98.5 F Pulse Rate 80 68 Respiratory Rate 16 16 Blood Pressure 144/79 H 133/71 122/50 L Pulse Oximetry 95 94 Oxygen Delivery Method Room Air Room Air BMI result Body Mass Index 30.7 Labs 01/05/24 11:49 02/04/24 07:17 Labs: Laboratory Results - last 48 hr 02/08/24 02/09/24 02/09/24 06:32 06:40 07:57 Absolute Neuts (auto) 3.9 POC Glucose 117 H 121 H Imaging Radiology Impressions: ITS Impressions Chest X-Ray 01/07/24 13:27 IMPRESSION: Bronchial wall thickening may be infectious and/or inflammatory in etiology. Electronically signed by: Marianna Torres MD 01/07/2024 03:31 PM EDT Medications Medications Current Medications Acetaminophen (Acetaminophen 325 Mg Tablet) 650 mg PO Q6H PRN PRN Reason: Headache/Pain Mild Scale (1-3) Last Admin: 01/12/24 09:03 Dose: 650 mg Al Hydroxide/Mg Hydroxide (Magnesium Hydrox/Alum Hydrox 30 Ml Oral.Susp) 30 ml PO Q6H PRN PRN Reason: Heartburn/Nausea Clonidine HCl (Clonidine Hcl 0.1 Mg Tablet) 0.05 mg PO BID [facility]; Protocol Last Admin: 02/09/24 08:27 Dose: 0.05 mg Clozapine 200 mg/ Clozapine 50 (mg) 250 mg PO DAILY@1930 [facility] Last Admin: 02/08/24 20:34 Dose: 250 mg Docusate Sodium (Docusate Sodium 100 Mg Capsule) 100 mg PO BID [facility] Last Admin: 02/09/24 08:26 Dose: 100 mg Glucose (Glucose Gel 15 Gm Gel..Gram.) 15 gm PO Q15M PRN; Protocol PRN Reason: per Hypoglycemia Standing Ord. Hydroxyzine HCl (Hydroxyzine Hcl 25 Mg Tablet) 25 mg PO Q6H PRN PRN Reason: Anxiety Dextrose (D10) 250 mls @ 750 mls/hr IV Q15M PRN; Protocol PRN Reason: per Hypoglycemia Standing Ord. Insulin Human Lispro (Insulin Lispro 100 Unit/Ml 3 Ml Vial) 0 unit SUBCUT DAILY [facility]; Protocol Last Admin: 02/09/24 10:22 Dose: Not Given Magnesium Hydroxide (Milk Of Magnesia 30 Ml Oral.Susp) 30 ml PO DAILY PRN PRN Reason: Constipation Last Admin: 01/11/24 12:48 Dose: 30 ml Omeprazole (Omeprazole 20 Mg Capsule.Dr) 20 mg PO DAILY@0630 [facility] Last Admin: 02/09/24 06:41 Dose: 20 mg Polyethylene Glycol (Polyethylene Glycol 3350 17 Gm Powd.Pack) 17 gm PO DAILY [facility] Last Admin: 02/09/24 08:29 Dose: 17 gm Senna (Sennosides 8.6 Mg Tablet) 17.2 mg PO BEDTIME [facility] Last Admin: 02/08/24 20:35 Dose: 17.2 mg Sertraline HCl (Sertraline Hcl 100 Mg Tablet) 100 mg PO BID [facility] Last Admin: 02/09/24 08:27 Dose: 100 mg Tamsulosin HCl (Tamsulosin Hcl 0.4 Mg Capsule) 0.4 mg PO BEDTIME [facility] Last Admin: 02/08/24 20:38 Dose: 0.4 mg Trazodone HCl (Trazodone Hcl 50 Mg Tablet) 50 mg PO BEDTIME MRX1 PRN PRN Reason: Insomnia Last Admin: 01/17/24 19:56 Dose: 50 mg Allergies Allergies Allergy/AdvReac Type Severity Reaction Status Date / Time No Known Allergies [NKA] Allergy Unknown NONE Verified 01/05/24 11:31 Assessment & Plan Assessment & Plan (1) Catatonia: Status: Acute Code(s): F06.1 - Catatonic disorder due to known physiological condition (2) Schizoaffective disorder, depressive type: Status: Acute Code(s): F25.1 - Schizoaffective disorder, depressive type (3) Essential (primary) hypertension: Status: Acute Code(s): I10 - Essential (primary) hypertension (4) Diabetes mellitus: Qualifiers: Diabetes mellitus complication status: with hyperglycemia Diabetes mellitus care home insulin use: without care home use Diabetes mellitus type: t ype 2 Qualified Code(s): E11.65 - Type 2 diabetes mellitus with hyperglycemia Status: Acute Code(s): E11.9 - Type 2 diabetes mellitus without complications (5) Sleep apnea: Status: Acute Code(s): G47.30 - Sleep apnea, unspecified Plan 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 Patient not tolerating combination of clozapine and lorazepam appears overly sedated lethargic remains blunted psychomotor retarded with catatonia. Will lower Ativan to 1 mg 3 times a day lower clozapine to 250 mg hopefully patient will be more alert and we can better tease out catatonia versus medication induced lethargy on top of that. The patient has had a complicated response in the past to ECT. Last year did seem to help him in some years past the patient did have a course of over 10 treatments that did not help with his catatonia and eventually responded to combination of clozapine and lorazepam. stop abilify If patient becomes more alert will try and see if he is able to possibly consent for ECT which he has done in the past there was a lot of negative feedback from a family member which had been difficult for the patient to deal with. There is a court hearing for treatment order and retention scheduled past records in responses extensively reviewed 01/18/24 cont current tx plan improvement noted abilify d/c in context of catatonia monitor response to dec clozapine lower ativan . trying to balance catatonia tx vs oversedation ect remains possible option but pt improved today 02/03 intermittent worsening of catatonia. continue tx. Plan 1. Continue with Clozaril and Ativan. 2. We will reassess the possibility of ECT with his father. His father has adamantly refused this treatment option. Later on, he is open to this since he has failed benzodiazepines p.o. 3. The patient is conditional voluntary by healthcare proxy 4. The patient remains with some catatonic symptoms but slightly better. We will wait. 5. Start clearance for ECT. Reason for continued inpatient stay Substantial Risk for: inability to function, rapid decompensation and med/psych decompensation Time Spent With Patient Time: Total time managing care of this patient today __20__ minutes.
[2024-02-09 20:00] VITALS: BP 109/59; PULSE 65; RESP 18; TEMP 36.4; O2SAT 94
[2024-02-09] MEDS: Sennosides 8.6 MG TABLET 17.2 MG PO (20:57)
[2024-02-09] MEDS: cloZAPine 200 MG, cloZAPine 50 MG 250 MG PO (20:57)
[2024-02-09] MEDS: Tamsulosin HCL 0.4 MG CAPSULE PO (20:57)
[2024-02-10] MEDS: Omeprazole 20 MG CAPSULE.DR PO (06:33)
--- NOTE | 2024-02-10 06:41 | P.PNPSI_ITS ---
Subjective Subjective Date of Service: 02/10/24 Reason For Visit: catatonia Subjective Notes: Conditional Voluntary Interim History: The nursing staff reported the patient remains catatonic with limited responses even though he had been seen going to the common areas and having his meals. On interview the patient has limited responses. We already did the workout for ECT and we are going to start next Monday. Mental Status Exam Mental Status Exam Patient Appearance: Well Grooomed and Appropriate Patient Orientation: Person and Situation Level of Consciousness: Awake and Appropriate Patient Behavior: Guarded and Passive Mood Description: Withdrawn Affect Description: Constricted Patient Cognition Impaired: Yes Ability to Follow Directions: Good Speech Pattern: Clear Hallucinations: Auditory Delusions: Paranoid Ideation Thought Process: Distracted and Slowed Thinking Thought Content: positive for Kimberly and positive for Thought Blocking Judgement: Poor Diagnostics Vital Signs (24Hr): Vital Signs - 24 hr 02/09/24 08:00 02/09/24 20:00 Temperature 98.5 F 97.6 F Pulse Rate 68 65 Respiratory Rate 16 18 Blood Pressure 122/50 L 109/59 L Pulse Oximetry 94 94 Oxygen Delivery Method Room Air Room Air BMI result Body Mass Index 30.7 Labs 01/05/24 11:49 02/04/24 07:17 Labs: Laboratory Results - last 48 hr 02/08/24 02/09/24 02/09/24 06:32 06:40 07:57 Absolute Neuts (auto) 3.9 POC Glucose 117 H 121 H Imaging Radiology Impressions: ITS Impressions Chest X-Ray 01/07/24 13:27 IMPRESSION: Bronchial wall thickening may be infectious and/or inflammatory in etiology. Electronically signed by: Marianna Torres MD 01/07/2024 03:31 PM EDT Medications Medications Current Medications Acetaminophen (Acetaminophen 325 Mg Tablet) 650 mg PO Q6H PRN PRN Reason: Headache/Pain Mild Scale (1-3) Last Admin: 01/12/24 09:03 Dose: 650 mg Al Hydroxide/Mg Hydroxide (Magnesium Hydrox/Alum Hydrox 30 Ml Oral.Susp) 30 ml PO Q6H PRN PRN Reason: Heartburn/Nausea Clonidine HCl (Clonidine Hcl 0.1 Mg Tablet) 0.05 mg PO BID [facility]; Protocol Last Admin: 02/09/24 20:58 Dose: 0.05 mg Clozapine 200 mg/ Clozapine 50 (mg) 250 mg PO DAILY@1930 [facility] Last Admin: 02/09/24 20:57 Dose: 250 mg Docusate Sodium (Docusate Sodium 100 Mg Capsule) 100 mg PO BID [facility] Last Admin: 02/09/24 20:58 Dose: 100 mg Glucose (Glucose Gel 15 Gm Gel..Gram.) 15 gm PO Q15M PRN; Protocol PRN Reason: per Hypoglycemia Standing Ord. Hydroxyzine HCl (Hydroxyzine Hcl 25 Mg Tablet) 25 mg PO Q6H PRN PRN Reason: Anxiety Dextrose (D10) 250 mls @ 750 mls/hr IV Q15M PRN; Protocol PRN Reason: per Hypoglycemia Standing Ord. Insulin Human Lispro (Insulin Lispro 100 Unit/Ml 3 Ml Vial) 0 unit SUBCUT DAILY [facility]; Protocol Last Admin: 02/09/24 10:22 Dose: Not Given Magnesium Hydroxide (Milk Of Magnesia 30 Ml Oral.Susp) 30 ml PO DAILY PRN PRN Reason: Constipation Last Admin: 01/11/24 12:48 Dose: 30 ml Omeprazole (Omeprazole 20 Mg Capsule.Dr) 20 mg PO DAILY@0630 [facility] Last Admin: 02/10/24 06:33 Dose: 20 mg Polyethylene Glycol (Polyethylene Glycol 3350 17 Gm Powd.Pack) 17 gm PO DAILY [facility] Last Admin: 02/09/24 08:29 Dose: 17 gm Senna (Sennosides 8.6 Mg Tablet) 17.2 mg PO BEDTIME [facility] Last Admin: 02/09/24 20:57 Dose: 17.2 mg Sertraline HCl (Sertraline Hcl 100 Mg Tablet) 100 mg PO BID [facility] Last Admin: 02/09/24 20:57 Dose: 100 mg Tamsulosin HCl (Tamsulosin Hcl 0.4 Mg Capsule) 0.4 mg PO BEDTIME [facility] Last Admin: 02/09/24 20:57 Dose: 0.4 mg Trazodone HCl (Trazodone Hcl 50 Mg Tablet) 50 mg PO BEDTIME MRX1 PRN PRN Reason: Insomnia Last Admin: 01/17/24 19:56 Dose: 50 mg Allergies Allergies Allergy/AdvReac Type Severity Reaction Status Date / Time No Known Allergies [NKA] Allergy Unknown NONE Verified 01/05/24 11:31 Assessment & Plan Assessment & Plan (1) Pre-op evaluation: Status: Acute Code(s): Z01.818 - Encounter for other preprocedural examination Plan Patient is a 58-year-old male with a PMH significant for HTN, [id number] type 2 diabetes, BPH, schizoaffective disorder, and depression with catatonia admitted to [facility] with hospitalist consult ECT risk stratification. ECT risk stratification Patient with history of multiple prior ECT without apparent complications No apparent acute medical complaints, vitals and EKG reassuring RCRI class 1 risk, 0 points; no additional cardiac workup indicated Based on patient's history, exam, and EKG, there are no apparent contraindications for the planned procedure Plan 1. Continue with Clozaril. 2. Continue with Ativan t.i.d.. 3. Scheduled for ECT next Monday. Reason for continued inpatient stay Substantial Risk for: inability to function, rapid decompensation and med/psych decompensation Time Spent With Patient Time: Total time managing care of this patient today __20__ minutes.
[2024-02-10 06:43] LABS: Glucose, Whole Blood 110 mg/dL (60-115)
[2024-02-10 07:58] VITALS: BP 131/69; PULSE 81; RESP 18; TEMP 36.1; O2SAT 95
[2024-02-10] MEDS: Sertraline HCL 100 MG TABLET PO ×2 (08:12→20:46)
[2024-02-10] MEDS: cloNIDine HCL 0.1 MG TABLET 0.05 MG PO ×2 (08:12→20:46)
[2024-02-10] MEDS: Docusate Sodium 100 MG CAPSULE PO ×2 (08:12→20:46)
[2024-02-10] MEDS: polyethylene glycoL 3350 17 GM POWD.PACK PO (08:13)
[2024-02-10 19:56] VITALS: BP 133/70; PULSE 70; RESP 18; TEMP 36.6; O2SAT 96
[2024-02-10] MEDS: cloZAPine 200 MG, cloZAPine 50 MG 250 MG PO (20:46)
[2024-02-10] MEDS: Sennosides 8.6 MG TABLET 17.2 MG PO (20:46)
[2024-02-10] MEDS: Tamsulosin HCL 0.4 MG CAPSULE PO (20:46)
[2024-02-11] MEDS: Omeprazole 20 MG CAPSULE.DR PO (05:37)
[2024-02-11 06:56] LABS: Glucose, Whole Blood 114 mg/dL (60-115)
[2024-02-11 08:43] VITALS: BP 136/76; PULSE 76; RESP 16; TEMP 36.6; O2SAT 98
[2024-02-11] MEDS: cloNIDine HCL 0.1 MG TABLET 0.05 MG PO ×2 (08:49→20:18)
[2024-02-11] MEDS: polyethylene glycoL 3350 17 GM POWD.PACK PO (08:49)
[2024-02-11] MEDS: Docusate Sodium 100 MG CAPSULE PO ×2 (08:50→20:19)
[2024-02-11] MEDS: Sertraline HCL 100 MG TABLET PO ×2 (08:50→20:19)
[2024-02-11 10:52] LABS: Creatinine Clr Calc Pharmacy 75.8; Estimated Glomerular Filt Rate > 60
--- NOTE | 2024-02-11 12:01 | P.PNPSI_ITS ---
Subjective Subjective Date of Service: 02/11/24 Reason For Visit: catatonia Subjective Notes: Conditional Voluntary Interim History: The nursing staff reported the patient remains catatonic, he was seen packing food on his mouth. The staff reported that he looks slightly better. He is scheduled for ECT tomorrow. On interview the patient remains catatonic. Mental Status Exam Mental Status Exam Patient Appearance: Well Grooomed Patient Orientation: Person and Situation Level of Consciousness: Awake Patient Behavior: Guarded and Passive Mood Description: Withdrawn Affect Description: Constricted Patient Cognition Impaired: Yes Ability to Follow Directions: Good Speech Pattern: Clear Hallucinations: None Delusions: Not Present Thought Process: Distracted and Slowed Thinking Thought Content: positive for Many and positive for Poverty of Content Judgement: Fair Diagnostics Vital Signs (24Hr): Vital Signs - 24 hr 02/10/24 19:56 02/11/24 08:43 Temperature 97.9 F 97.9 F Pulse Rate 70 76 Respiratory Rate 18 16 Blood Pressure 133/70 136/76 Pulse Oximetry 96 98 Oxygen Delivery Method Room Air Room Air BMI result Body Mass Index 30.7 Labs 01/05/24 11:49 02/11/24 10:16 Labs: Laboratory Results - last 48 hr 02/10/24 02/11/24 02/11/24 06:31 06:50 10:16 Creatinine 1.21 Estim Creat Clear Calc 75.8 Estimated GFR > 60 POC Glucose 110 114 Imaging Radiology Impressions: ITS Impressions Chest X-Ray 01/07/24 13:27 IMPRESSION: Bronchial wall thickening may be infectious and/or inflammatory in etiology. Electronically signed by: Marianna Torres MD 01/07/2024 03:31 PM EDT Medications Medications Current Medications Acetaminophen (Acetaminophen 325 Mg Tablet) 650 mg PO Q6H PRN PRN Reason: Headache/Pain Mild Scale (1-3) Last Admin: 01/12/24 09:03 Dose: 650 mg Al Hydroxide/Mg Hydroxide (Magnesium Hydrox/Alum Hydrox 30 Ml Oral.Susp) 30 ml PO Q6H PRN PRN Reason: Heartburn/Nausea Clonidine HCl (Clonidine Hcl 0.1 Mg Tablet) 0.05 mg PO BID [facility]; Protocol Last Admin: 02/11/24 08:49 Dose: 0.05 mg Clozapine 200 mg/ Clozapine 50 (mg) 250 mg PO DAILY@1930 [facility] Last Admin: 02/10/24 20:46 Dose: 250 mg Docusate Sodium (Docusate Sodium 100 Mg Capsule) 100 mg PO BID [facility] Last Admin: 02/11/24 08:50 Dose: 100 mg Glucose (Glucose Gel 15 Gm Gel..Gram.) 15 gm PO Q15M PRN; Protocol PRN Reason: per Hypoglycemia Standing Ord. Hydroxyzine HCl (Hydroxyzine Hcl 25 Mg Tablet) 25 mg PO Q6H PRN PRN Reason: Anxiety Dextrose (D10) 250 mls @ 750 mls/hr IV Q15M PRN; Protocol PRN Reason: per Hypoglycemia Standing Ord. Insulin Human Lispro (Insulin Lispro 100 Unit/Ml 3 Ml Vial) 0 unit SUBCUT DAILY [facility]; Protocol Last Admin: 02/11/24 08:52 Dose: Not Given Magnesium Hydroxide (Milk Of Magnesia 30 Ml Oral.Susp) 30 ml PO DAILY PRN PRN Reason: Constipation Last Admin: 01/11/24 12:48 Dose: 30 ml Omeprazole (Omeprazole 20 Mg Capsule.Dr) 20 mg PO DAILY@0630 [facility] Last Admin: 02/11/24 05:37 Dose: 20 mg Polyethylene Glycol (Polyethylene Glycol 3350 17 Gm Powd.Pack) 17 gm PO DAILY [facility] Last Admin: 02/11/24 08:49 Dose: 17 gm Senna (Sennosides 8.6 Mg Tablet) 17.2 mg PO BEDTIME [facility] Last Admin: 02/10/24 20:46 Dose: 17.2 mg Sertraline HCl (Sertraline Hcl 100 Mg Tablet) 100 mg PO BID [facility] Last Admin: 02/11/24 08:50 Dose: 100 mg Tamsulosin HCl (Tamsulosin Hcl 0.4 Mg Capsule) 0.4 mg PO BEDTIME [facility] Last Admin: 02/10/24 20:46 Dose: 0.4 mg Trazodone HCl (Trazodone Hcl 50 Mg Tablet) 50 mg PO BEDTIME MRX1 PRN PRN Reason: Insomnia Last Admin: 01/17/24 19:56 Dose: 50 mg Allergies Allergies Allergy/AdvReac Type Severity Reaction Status Date / Time No Known Allergies [NKA] Allergy Unknown NONE Verified 01/05/24 11:31 Assessment & Plan Assessment & Plan (1) Pre-op evaluation: Status: Acute Code(s): Z01.818 - Encounter for other preprocedural examination Plan Patient is a 58-year-old male with a PMH significant for HTN, [id number] type 2 diabetes, BPH, schizoaffective disorder, and depression with catatonia admitted to [facility] psych with hospitalist consult ECT risk stratification. ECT risk stratification Patient with history of multiple prior ECT without apparent complications No apparent acute medical complaints, vitals and EKG reassuring RCRI class 1 risk, 0 points; no additional cardiac workup indicated Based on patient's history, exam, and EKG, there are no apparent contraindications for the planned procedure Plan 1. Continue with Clozaril. 2. Continue with Ativan t.i.d.. 3. Scheduled for ECT next Monday. Reason for continued inpatient stay Substantial Risk for: inability to function, rapid decompensation and med/psych decompensation Time Spent With Patient Time: Total time managing care of this patient today __20__ minutes.
[2024-02-11 20:00] VITALS: BP 130/67; PULSE 73; RESP 18; TEMP 36.7; O2SAT 98
[2024-02-11] MEDS: cloZAPine 200 MG, cloZAPine 50 MG 250 MG PO (20:18)
[2024-02-11] MEDS: Sennosides 8.6 MG TABLET 17.2 MG PO (20:19)
[2024-02-11] MEDS: Tamsulosin HCL 0.4 MG CAPSULE PO (20:19)
[2024-02-12 06:45] LABS: Glucose, Whole Blood 130 mg/dL (60-115)
[2024-02-12 08:00] VITALS: BP 128/65; PULSE 68; RESP 18; TEMP 36.2; O2SAT 97
[2024-02-12 09:29] VITALS: BP 151/85; PULSE 66; RESP 18; TEMP 36.1; O2SAT 97
[2024-02-12] MEDS: Lactated Ringers 1,000 ML 100 ML IVCONT (09:32)
[2024-02-12 10:18] LABS: Glucose, Whole Blood 102 mg/dL (60-115)
--- NOTE | 2024-02-12 10:30 | HO.ANESPROP2 ---
HPI - Anesthesia Eval Consult details Narrative: 58 yo male patient for ECT PMFSH Active Problems Active Problems: All Active Problems (Updated 02/26/24 @ 13:35 by Karie Serrano MD) Pre-op evaluation (Acute) Catatonia (Acute) Nocturnal hypoxia (Acute) Sleep apnea (Acute) Schizoaffective disorder, depressive type (Acute) Benign prostate hyperplasia (Acute) Essential hypertension (Acute) Right hip pain (Acute) Essential (primary) hypertension (Acute) Diabetes mellitus (Acute) Past Medical History Medical History Schizophrenia, catatonic Mild sleep apnea Nocturnal hypoxia Routine medical exam Joint inflammation of right hand and wrist Status post fall Adult general medical exam Screening for colon cancer Screening for prostate cancer Cough BPH (benign prostatic hyperplasia) Essential (primary) hypertension Diabetes mellitus Family History Family History Mother Cancer Father Kidney agenesis Family history of problems with anesthesia: No Surgical History Surgical History History of colonoscopy (~06/15/21) History of tooth extraction History of root canal procedure History of Problems with Anesthesia: No Social History Social History Household Members: None Housing: Apartment Do you presently have visiting nurse or other home services: Yes Unable to assess alcohol history related to: Unable to respond Alcohol intake: former Comment: 1:1 Patient Tobacco Use Status: Never used Tobacco e-Cigarette/Vaping Use: Never Used Second Hand Smoke Exposure: No service: No Current occupational status: employed Sexual orientation: Straight/Heterosexual Cognitive needs: No Hearing needs: No Vision needs: No Meds Allergies Allergy/AdvReac Type Severity Reaction Status Date / Time No Known Allergies [NKA] Allergy Unknown NONE Verified 01/05/24 11:31 Active Medications: Current Medications Acetaminophen (Acetaminophen 325 Mg Tablet) 650 mg PO Q6H PRN PRN Reason: Headache/Pain Mild Scale (1-3) Last Admin: 01/12/24 09:03 Dose: 650 mg Acetaminophen (Acetaminophen 325 Mg Tablet) 650 mg PO ONCE PRN PRN Reason: Pain, Mild (Pain Scale 1-3) Stop: 02/12/24 16:27 Al Hydroxide/Mg Hydroxide (Magnesium Hydrox/Alum Hydrox 30 Ml Oral.Susp) 30 ml PO Q6H PRN PRN Reason: Heartburn/Nausea Clonidine HCl (Clonidine Hcl 0.1 Mg Tablet) 0.05 mg PO BID [facility]; Protocol Last Admin: 02/11/24 20:18 Dose: 0.05 mg Clozapine 200 mg/ Clozapine 50 (mg) 250 mg PO DAILY@1930 [facility] Last Admin: 02/11/24 20:18 Dose: 250 mg Docusate Sodium (Docusate Sodium 100 Mg Capsule) 100 mg PO BID [facility] Last Admin: 02/11/24 20:19 Dose: 100 mg Glucose (Glucose Gel 15 Gm Gel..Gram.) 15 gm PO Q15M PRN; Protocol PRN Reason: per Hypoglycemia Standing Ord. Hydroxyzine HCl (Hydroxyzine Hcl 25 Mg Tablet) 25 mg PO Q6H PRN PRN Reason: Anxiety Dextrose (D10) 250 mls @ 750 mls/hr IV Q15M PRN; Protocol PRN Reason: per Hypoglycemia Standing Ord. Lactated Ringer's (Lr) 1,000 mls @ 100 mls/hr IVCONT .Q10H [facility] Last Admin: 02/12/24 09:32 Dose: 100 mls/hr Insulin Human Lispro (Insulin Lispro 100 Unit/Ml 3 Ml Vial) 0 unit SUBCUT DAILY [facility]; Protocol Last Admin: 02/11/24 08:52 Dose: Not Given Magnesium Hydroxide (Milk Of Magnesia 30 Ml Oral.Susp) 30 ml PO DAILY PRN PRN Reason: Constipation Last Admin: 01/11/24 12:48 Dose: 30 ml Omeprazole (Omeprazole 20 Mg Capsule.Dr) 20 mg PO DAILY@0630 [facility] Last Admin: 02/12/24 05:14 Dose: Not Given Ondansetron HCl (Ondansetron Hcl 4 Mg/2 Ml Vial) 4 mg IVPUSH ONCE PRN PRN Reason: Nausea and Vomiting Stop: 02/12/24 16:27 Polyethylene Glycol (Polyethylene Glycol 3350 17 Gm Powd.Pack) 17 gm PO DAILY [facility] Last Admin: 02/11/24 08:49 Dose: 17 gm Senna (Sennosides 8.6 Mg Tablet) 17.2 mg PO BEDTIME [facility] Last Admin: 02/11/24 20:19 Dose: 17.2 mg Sertraline HCl (Sertraline Hcl 100 Mg Tablet) 100 mg PO BID [facility] Last Admin: 02/11/24 20:19 Dose: 100 mg Tamsulosin HCl (Tamsulosin Hcl 0.4 Mg Capsule) 0.4 mg PO BEDTIME [facility] Last Admin: 02/11/24 20:19 Dose: 0.4 mg Trazodone HCl (Trazodone Hcl 50 Mg Tablet) 50 mg PO BEDTIME MRX1 PRN PRN Reason: Insomnia Last Admin: 01/17/24 19:56 Dose: 50 mg Home Medications ?Medication ?Instructions ?Recorded ?Confirmed ?Last Taken ?Type aripiprazole 5 mg tablet 5 mg PO BEDTIME 01/05/24 01/05/24 01/03/24 History lithium carbonate 300 mg capsule 300 mg PO BID 01/05/24 01/05/24 01/05/24 History omeprazole 20 mg capsule,delayed 20 mg PO DAILY@0630 01/05/24 01/05/24 01/05/24 History release polyethylene glycol 3350 17 17 g PO DAILY 01/05/24 01/05/24 01/05/24 History gram/dose oral powder (Miralax) sennosides 8.6 mg tablet (senna) 17.2 mg PO BEDTIME 01/05/24 01/05/24 01/05/24 History tamsulosin 0.4 mg capsule 0.4 mg PO BEDTIME 01/05/24 01/05/24 01/03/24 History Exam Height,Weight and Vital Signs: Height 5 ft 10 in Weight 96.978 kg Last Vital Signs Temp 97 F 02/12/24 09:29 Pulse 66 02/12/24 09:29 Resp 18 02/12/24 09:29 BP 151/85 H 02/12/24 09:29 Pulse Ox 97 02/12/24 09:29 O2 Del Method Room Air 02/12/24 09:29 Vital Signs Temp Pulse Resp BP Pulse Ox O2 Del Method 02/26/24 07:54 97.7 F 72 18 129/62 96 Room Air 02/25/24 20:00 97.1 F 80 18 116/56 L 97 Room Air Pertinent Lab Results Pertinent Lab Results: Laboratory Tests 01/05/24 01/05/24 01/05/24 11:49 15:51 18:36 WBC 8.9 RBC 4.82 Hgb 13.9 L Hct 42.6 MCV 88.4 MCH 28.8 MCHC 32.6 RDW 13.2 Plt Count 169 MPV 11.1 Immature Gran % (Auto) 0.6 H Neut % (Auto) 79.4 H Lymph % (Auto) 13.1 L [place] % (Auto) 6.8 Eos % (Auto) 0.0 Baso % (Auto) 0.1 Lymph # (Auto) 1.2 [place] # (Auto) 0.6 Eos # (Auto) 0.0 Baso # (Auto) 0.0 Abs Immat Gran (auto) 0.05 H Absolute Neuts (auto) 7.1 Absolute Nucleated RBC 0.000 Nucleated RBC % (auto) 0.0 Sodium 141 Potassium 4.6 Chloride 106 Carbon Dioxide 27 Anion Gap 13 BUN 23 H Creatinine 1.42 H Estim Creat Clear Calc 64.4 Estimated GFR 51 POC Glucose 90 Random Glucose 82 Fasting Glucose Estimat Average Glucose Hemoglobin A1c % Calcium 9.2 Total Bilirubin 0.6 AST 13 ALT 9 Alkaline Phosphatase 64 Total Protein 7.0 Albumin 4.1 TSH Salicylates < 5.0 L Acetaminophen < 3 Clozapine Norclozapine [place] 1.19 Ethyl Alcohol < 10 COVID-19 ([facility]) Negative COVID-19 [facility] Com See Note 01/07/24 01/12/24 01/14/24 07:36 08:25 08:35 WBC RBC Hgb Hct MCV MCH MCHC RDW Plt Count MPV Immature Gran % (Auto) Neut % (Auto) Lymph % (Auto) [place] % (Auto) Eos % (Auto) Baso % (Auto) Lymph # (Auto) [place] # (Auto) Eos # (Auto) Baso # (Auto) Abs Immat Gran (auto) Absolute Neuts (auto) 4.9 Absolute Nucleated RBC Nucleated RBC % (auto) Sodium 142 Potassium 4.4 Chloride 106 Carbon Dioxide 25 Anion Gap 15 BUN 23 H Creatinine 1.39 1.55 H Estim Creat Clear Calc 65.6 58.8 Estimated GFR 52 46 POC Glucose Random Glucose 132 H Fasting Glucose Estimat Average Glucose Hemoglobin A1c % Calcium 9.2 Total Bilirubin AST ALT Alkaline Phosphatase Total Protein Albumin TSH Salicylates Acetaminophen Clozapine Norclozapine [place] 0.90 Ethyl Alcohol COVID-19 ([facility]) COVID-19 [facility] Com 01/16/24 01/17/24 01/19/24 10:15 08:14 08:50 WBC RBC Hgb Hct MCV MCH MCHC RDW Plt Count MPV Immature Gran % (Auto) Neut % (Auto) Lymph % (Auto) [place] % (Auto) Eos % (Auto) Baso % (Auto) Lymph # (Auto) [place] # (Auto) Eos # (Auto) Baso # (Auto) Abs Immat Gran (auto) Absolute Neuts (auto) 5.3 Absolute Nucleated RBC Nucleated RBC % (auto) Sodium 144 Potassium 4.3 Chloride 109 H Carbon Dioxide 29 Anion Gap 10 L BUN 24 H Creatinine 1.37 Estim Creat Clear Calc 66.5 Estimated GFR 53 POC Glucose 88 Random Glucose Fasting Glucose 90 Estimat Average Glucose 103 Hemoglobin A1c % 5.2 Calcium 9.4 Total Bilirubin 0.4 AST 15 ALT 12 Alkaline Phosphatase 66 Total Protein 6.6 Albumin 3.9 TSH 0.78 Salicylates Acetaminophen Clozapine 353 Norclozapine 196 [place] 0.65 0.89 Ethyl Alcohol COVID-19 ([facility]) COVID-19 [employer] [place] 01/21/24 01/21/24 01/22/24 07:36 12:20 16:09 WBC RBC Hgb Hct MCV MCH MCHC RDW Plt Count MPV Immature Gran % (Auto) Neut % (Auto) Lymph % (Auto) [place] % (Auto) Eos % (Auto) Baso % (Auto) Lymph # (Auto) [place] # (Auto) Eos # (Auto) Baso # (Auto) Abs Immat Gran (auto) Absolute Neuts (auto) Absolute Nucleated RBC Nucleated RBC % (auto) Sodium 141 141 Potassium 3.8 3.8 Chloride 106 107 Carbon Dioxide 26 28 Anion Gap 13 10 L BUN 31 H 29 H Creatinine 1.64 H 1.76 H 1.67 H Estim Creat Clear Calc 55.4 51.6 54.4 Estimated GFR 43 40 42 POC Glucose Random Glucose 173 H 96 Fasting Glucose Estimat Average Glucose Hemoglobin A1c % Calcium 9.3 9.0 Total Bilirubin 0.5 0.4 AST 15 18 ALT 15 10 Alkaline Phosphatase 65 55 Total Protein 6.7 6.3 L Albumin 4.0 3.8 TSH Salicylates Acetaminophen Clozapine Norclozapine [place] 1.20 Ethyl Alcohol COVID-19 ([facility]) COVID-19 [employer] [place] 01/23/24 01/24/24 01/24/24 08:05 07:46 16:29 WBC RBC Hgb Hct MCV MCH MCHC RDW Plt Count MPV Immature Gran % (Auto) Neut % (Auto) Lymph % (Auto) [place] % (Auto) Eos % (Auto) Baso % (Auto) Lymph # (Auto) [place] # (Auto) Eos # (Auto) Baso # (Auto) Abs Immat Gran (auto) Absolute Neuts (auto) Absolute Nucleated RBC Nucleated RBC % (auto) Sodium 144 144 Potassium 4.0 4.1 Chloride 107 110 H Carbon Dioxide 29 28 Anion Gap 12 10 L BUN 25 H 22 H Creatinine 1.29 1.37 Estim Creat Clear Calc 70.4 66.3 Estimated GFR 57 53 POC Glucose 106 Random Glucose 91 101 Fasting Glucose Estimat Average Glucose Hemoglobin A1c % Calcium 8.9 8.9 Total Bilirubin AST ALT Alkaline Phosphatase Total Protein Albumin TSH Salicylates Acetaminophen Clozapine Norclozapine [place] Ethyl Alcohol COVID-19 ([facility]) [employer] 01/24/24 01/25/24 01/25/24 19:54 06:36 12:42 WBC RBC Hgb Hct MCV MCH MCHC RDW Plt Count MPV Immature Gran % (Auto) Neut % (Auto) Lymph % (Auto) [place] % (Auto) Eos % (Auto) Baso % (Auto) Lymph # (Auto) [place] # (Auto) Eos # (Auto) Baso # (Auto) Abs Immat Gran (auto) Absolute Neuts (auto) Absolute Nucleated RBC Nucleated RBC % (auto) Sodium Potassium Chloride Carbon Dioxide Anion Gap BUN Creatinine Estim Creat Clear Calc Estimated GFR POC Glucose 105 110 159 H Random Glucose Fasting Glucose Estimat Average Glucose Hemoglobin A1c % Calcium Total Bilirubin AST ALT Alkaline Phosphatase Total Protein Albumin TSH Salicylates Acetaminophen Clozapine Norclozapine [place] Ethyl Alcohol COVID-19 ([facility]) [employer] 01/25/24 01/25/24 01/26/24 16:48 21:13 06:33 WBC RBC Hgb Hct MCV MCH MCHC RDW Plt Count MPV Immature Gran % (Auto) Neut % (Auto) Lymph % (Auto) [place] % (Auto) Eos % (Auto) Baso % (Auto) Lymph # (Auto) [place] # (Auto) Eos # (Auto) Baso # (Auto) Abs Immat Gran (auto) Absolute Neuts (auto) Absolute Nucleated RBC Nucleated RBC % (auto) Sodium Potassium Chloride Carbon Dioxide Anion Gap BUN Creatinine Estim Creat Clear Calc Estimated GFR POC Glucose 84 118 H 101 Random Glucose Fasting Glucose Estimat Average Glucose Hemoglobin A1c % Calcium Total Bilirubin AST ALT Alkaline Phosphatase Total Protein Albumin TSH Salicylates Acetaminophen Clozapine Norclozapine [place] Ethyl Alcohol COVID-19 ([facility]) COVID-19 [employer] [place] 01/26/24 01/26/24 01/26/24 07:56 11:32 16:33 WBC RBC Hgb Hct MCV MCH MCHC RDW Plt Count MPV Immature Gran % (Auto) Neut % (Auto) Lymph % (Auto) [place] % (Auto) Eos % (Auto) Baso % (Auto) Lymph # (Auto) [place] # (Auto) Eos # (Auto) Baso # (Auto) Abs Immat Gran (auto) Absolute Neuts (auto) 3.4 Absolute Nucleated RBC Nucleated RBC % (auto) Sodium Potassium Chloride Carbon Dioxide Anion Gap BUN Creatinine Estim Creat Clear Calc Estimated GFR POC Glucose 97 83 Random Glucose Fasting Glucose Estimat Average Glucose Hemoglobin A1c % Calcium Total Bilirubin AST ALT Alkaline Phosphatase Total Protein Albumin TSH Salicylates Acetaminophen Clozapine Norclozapine [place] Ethyl Alcohol COVID-19 ([facility]) COVID-19 [employer] [place] 01/26/24 01/27/24 01/27/24 21:18 06:50 11:13 WBC RBC Hgb Hct MCV MCH MCHC RDW Plt Count MPV Immature Gran % (Auto) Neut % (Auto) Lymph % (Auto) [place] % (Auto) Eos % (Auto) Baso % (Auto) Lymph # (Auto) [place] # (Auto) Eos # (Auto) Baso # (Auto) Abs Immat Gran (auto) Absolute Neuts (auto) Absolute Nucleated RBC Nucleated RBC % (auto) Sodium Potassium Chloride Carbon Dioxide Anion Gap BUN Creatinine Estim Creat Clear Calc Estimated GFR POC Glucose 101 108 99 Random Glucose Fasting Glucose Estimat Average Glucose Hemoglobin A1c % Calcium Total Bilirubin AST ALT Alkaline Phosphatase Total Protein Albumin TSH Salicylates Acetaminophen Clozapine Norclozapine [place] Ethyl Alcohol COVID-19 ([facility]) COVID-19 [employer] [place] 01/27/24 01/27/24 01/28/24 16:36 21:31 06:25 WBC RBC Hgb Hct MCV MCH MCHC RDW Plt Count MPV Immature Gran % (Auto) Neut % (Auto) Lymph % (Auto) [place] % (Auto) Eos % (Auto) Baso % (Auto) Lymph # (Auto) [place] # (Auto) Eos # (Auto) Baso # (Auto) Abs Immat Gran (auto) Absolute Neuts (auto) Absolute Nucleated RBC Nucleated RBC % (auto) Sodium Potassium Chloride Carbon Dioxide Anion Gap BUN Creatinine Estim Creat Clear Calc Estimated GFR POC Glucose 80 99 111 Random Glucose Fasting Glucose Estimat Average Glucose Hemoglobin A1c % Calcium Total Bilirubin AST ALT Alkaline Phosphatase Total Protein Albumin TSH Salicylates Acetaminophen Clozapine Norclozapine [place] Ethyl Alcohol COVID-19 ([facility]) COVID-19 [facility] Com 01/28/24 01/28/24 01/28/24 07:21 11:32 19:53 WBC RBC Hgb Hct MCV MCH MCHC RDW Plt Count MPV Immature Gran % (Auto) Neut % (Auto) Lymph % (Auto) [place] % (Auto) Eos % (Auto) Baso % (Auto) Lymph # (Auto) [place] # (Auto) Eos # (Auto) Baso # (Auto) Abs Immat Gran (auto) Absolute Neuts (auto) Absolute Nucleated RBC Nucleated RBC % (auto) Sodium Potassium Chloride Carbon Dioxide Anion Gap BUN Creatinine 1.48 H Estim Creat Clear Calc 61.8 Estimated GFR 48 POC Glucose 93 123 H Random Glucose Fasting Glucose Estimat Average Glucose Hemoglobin A1c % Calcium Total Bilirubin AST ALT Alkaline Phosphatase Total Protein Albumin TSH Salicylates Acetaminophen Clozapine Norclozapine [place] Ethyl Alcohol COVID-19 ([facility]) COVID-19 [employer] [place] 01/29/24 01/29/24 01/30/24 06:32 19:56 06:34 WBC RBC Hgb Hct MCV MCH MCHC RDW Plt Count MPV Immature Gran % (Auto) Neut % (Auto) Lymph % (Auto) [place] % (Auto) Eos % (Auto) Baso % (Auto) Lymph # (Auto) [place] # (Auto) Eos # (Auto) Baso # (Auto) Abs Immat Gran (auto) Absolute Neuts (auto) Absolute Nucleated RBC Nucleated RBC % (auto) Sodium Potassium Chloride Carbon Dioxide Anion Gap BUN Creatinine Estim Creat Clear Calc Estimated GFR POC Glucose 109 148 H 109 Random Glucose Fasting Glucose Estimat Average Glucose Hemoglobin A1c % Calcium Total Bilirubin AST ALT Alkaline Phosphatase Total Protein Albumin TSH Salicylates Acetaminophen Clozapine Norclozapine [place] Ethyl Alcohol COVID-19 ([facility]) COVID-19 [facility] Com 01/31/24 02/01/24 02/02/24 06:35 06:09 06:19 WBC RBC Hgb Hct MCV MCH MCHC RDW Plt Count MPV Immature Gran % (Auto) Neut % (Auto) Lymph % (Auto) [place] % (Auto) Eos % (Auto) Baso % (Auto) Lymph # (Auto) [place] # (Auto) Eos # (Auto) Baso # (Auto) Abs Immat Gran (auto) Absolute Neuts (auto) Absolute Nucleated RBC Nucleated RBC % (auto) Sodium Potassium Chloride Carbon Dioxide Anion Gap BUN Creatinine Estim Creat Clear Calc Estimated GFR POC Glucose 98 101 102 Random Glucose Fasting Glucose Estimat Average Glucose Hemoglobin A1c % Calcium Total Bilirubin AST ALT Alkaline Phosphatase Total Protein Albumin TSH Salicylates Acetaminophen Clozapine Norclozapine [place] Ethyl Alcohol COVID-19 ([facility]) COVID-19 [employer] [place] 02/02/24 02/03/24 02/04/24 08:25 06:37 06:46 WBC RBC Hgb Hct MCV MCH MCHC RDW Plt Count MPV Immature Gran % (Auto) Neut % (Auto) Lymph % (Auto) [place] % (Auto) Eos % (Auto) Baso % (Auto) Lymph # (Auto) [place] # (Auto) Eos # (Auto) Baso # (Auto) Abs Immat Gran (auto) Absolute Neuts (auto) 3.3 Absolute Nucleated RBC Nucleated RBC % (auto) Sodium Potassium Chloride Carbon Dioxide Anion Gap BUN Creatinine Estim Creat Clear Calc Estimated GFR POC Glucose 95 98 Random Glucose Fasting Glucose Estimat Average Glucose Hemoglobin A1c % Calcium Total Bilirubin AST ALT Alkaline Phosphatase Total Protein Albumin TSH Salicylates Acetaminophen Clozapine Norclozapine [place] Ethyl Alcohol COVID-19 ([facility]) COVID-19 [employer] [place] 02/04/24 02/05/24 02/06/24 07:17 06:37 06:46 WBC RBC Hgb Hct MCV MCH MCHC RDW Plt Count MPV Immature Gran % (Auto) Neut % (Auto) Lymph % (Auto) [place] % (Auto) Eos % (Auto) Baso % (Auto) Lymph # (Auto) [place] # (Auto) Eos # (Auto) Baso # (Auto) Abs Immat Gran (auto) Absolute Neuts (auto) Absolute Nucleated RBC Nucleated RBC % (auto) Sodium Potassium Chloride Carbon Dioxide Anion Gap BUN Creatinine 1.32 Estim Creat Clear Calc 69.3 Estimated GFR 55 POC Glucose 94 103 Random Glucose Fasting Glucose Estimat Average Glucose Hemoglobin A1c % Calcium Total Bilirubin AST ALT Alkaline Phosphatase Total Protein Albumin TSH Salicylates Acetaminophen Clozapine Norclozapine [place] Ethyl Alcohol COVID-19 ([facility]) COVID-19 [facility] Com 02/07/24 02/08/24 02/09/24 06:57 06:32 06:40 WBC RBC Hgb Hct MCV MCH MCHC RDW Plt Count MPV Immature Gran % (Auto) Neut % (Auto) Lymph % (Auto) [place] % (Auto) Eos % (Auto) Baso % (Auto) Lymph # (Auto) [place] # (Auto) Eos # (Auto) Baso # (Auto) Abs Immat Gran (auto) Absolute Neuts (auto) Absolute Nucleated RBC Nucleated RBC % (auto) Sodium Potassium Chloride Carbon Dioxide Anion Gap BUN Creatinine Estim Creat Clear Calc Estimated GFR POC Glucose 118 H 117 H 121 H Random Glucose Fasting Glucose Estimat Average Glucose Hemoglobin A1c % Calcium Total Bilirubin AST ALT Alkaline Phosphatase Total Protein Albumin TSH Salicylates Acetaminophen Clozapine Norclozapine [place] Ethyl Alcohol COVID-19 ([facility]) COVID-19 [employer] [place] 02/09/24 02/10/24 02/11/24 07:57 06:31 06:50 WBC RBC Hgb Hct MCV MCH MCHC RDW Plt Count MPV Immature Gran % (Auto) Neut % (Auto) Lymph % (Auto) [place] % (Auto) Eos % (Auto) Baso % (Auto) Lymph # (Auto) [place] # (Auto) Eos # (Auto) Baso # (Auto) Abs Immat Gran (auto) Absolute Neuts (auto) 3.9 Absolute Nucleated RBC Nucleated RBC % (auto) Sodium Potassium Chloride Carbon Dioxide Anion Gap BUN Creatinine Estim Creat Clear Calc Estimated GFR POC Glucose 110 114 Random Glucose Fasting Glucose Estimat Average Glucose Hemoglobin A1c % Calcium Total Bilirubin AST ALT Alkaline Phosphatase Total Protein Albumin TSH Salicylates Acetaminophen Clozapine Norclozapine [place] Ethyl Alcohol COVID-19 ([facility]) COVID-19 [facility] Com 02/11/24 02/12/24 02/12/24 10:16 06:36 10:14 WBC RBC Hgb Hct MCV MCH MCHC RDW Plt Count MPV Immature Gran % (Auto) Neut % (Auto) Lymph % (Auto) [place] % (Auto) Eos % (Auto) Baso % (Auto) Lymph # (Auto) [place] # (Auto) Eos # (Auto) Baso # (Auto) Abs Immat Gran (auto) Absolute Neuts (auto) Absolute Nucleated RBC Nucleated RBC % (auto) Sodium Potassium Chloride Carbon Dioxide Anion Gap BUN Creatinine 1.21 Estim Creat Clear Calc 75.8 Estimated GFR > 60 POC Glucose 130 H 102 Random Glucose Fasting Glucose Estimat Average Glucose Hemoglobin A1c % Calcium Total Bilirubin AST ALT Alkaline Phosphatase Total Protein Albumin TSH Salicylates Acetaminophen Clozapine Norclozapine [place] Ethyl Alcohol COVID-19 ([facility]) COVID-19 Clin Com Last Resulted Lab Tests WBC 6.9 X10*3/uL (4.8-10.8) 02/14/24 14:36 RBC 4.34 X10*6/uL (4.60-5.80) L 02/14/24 14:36 Hgb 12.5 g/dl (14.0-18.0) L 02/14/24 14:36 Hct 37.5 % (42.0-52.0) L 02/14/24 14:36 MCV 86.4 fL (80.0-98.0) 02/14/24 14:36 MCH 28.8 pg (27.0-33.0) 02/14/24 14:36 MCHC 33.3 g/dl (31.0-36.0) 02/14/24 14:36 RDW 12.7 % (11.0-16.0) 02/14/24 14:36 Plt Count 130 X10*3/uL (160-400) L 02/14/24 14:36 MPV 11.0 fL (9.4-12.4) 02/14/24 14:36 Immature Gran % (Auto) 0.3 % (0.0-0.4) 02/14/24 14:36 Neut % (Auto) 71.4 % (45-73) 02/14/24 14:36 Lymph % (Auto) 19.9 % (20-40) L 02/14/24 14:36 [place] % (Auto) 8.3 % (2-11) 02/14/24 14:36 Eos % (Auto) 0.0 % (0-4) 02/14/24 14:36 Baso % (Auto) 0.1 % (0-2) 02/14/24 14:36 Lymph # (Auto) 1.4 X10*3/uL (1.2-4.9) 02/14/24 14:36 [place] # (Auto) 0.6 X10*3/uL (0.1-1.2) 02/14/24 14:36 Eos # (Auto) 0.0 X10*3/uL (0.0-0.4) 02/14/24 14:36 Baso # (Auto) 0.0 X10*3/uL (0.0-0.2) 02/14/24 14:36 Abs Immat Gran (auto) 0.02 X10*3/uL (0.00-0.03) 02/14/24 14:36 Absolute Neuts (auto) 3.9 x10*3/uL (2.0-8.3) 02/23/24 08:01 Absolute Nucleated RBC 0.000 X10*3/uL (0.0-0.012) 02/14/24 14:36 Nucleated RBC % (auto) 0.0 /100WBC (0.0-0.2) 02/14/24 14:36 Sodium 144 mmol/L (135-145) 02/14/24 14:36 Potassium 3.8 mmol/L (3.3-5.1) 02/14/24 14:36 Chloride 110 mmol/L (96-108) H 02/14/24 14:36 Carbon Dioxide 23 mmol/L (22-29) 02/14/24 14:36 Anion Gap 15 (12-20) 02/14/24 14:36 BUN 21 mg/dL (9-16) H 02/14/24 14:36 Creatinine 1.32 mg/dL (0.5-1.4) 02/25/24 08:12 Estim Creat Clear Calc 67.7 02/25/24 08:12 Estimated GFR 55 02/25/24 08:12 POC Glucose 106 mg/dL (60-115) 02/26/24 06:23 Random Glucose 101 mg/dL (60-115) 01/24/24 07:46 Fasting Glucose 99 mg/dL (60-99) 02/14/24 14:36 Estimat Average Glucose 103 mg/dL 01/17/24 08:14 Hemoglobin A1c % 5.2 % (<6.0) 01/17/24 08:14 Calcium 9.1 mg/dL (8.4-10.2) 02/14/24 14:36 Total Bilirubin 0.5 mg/dL (0.0-1.0) 02/14/24 14:36 AST 26 U/L (5-37) 02/14/24 14:36 ALT 13 U/L (0-40) 02/14/24 14:36 Alkaline Phosphatase 63 U/L (39-117) 02/14/24 14:36 Ammonia 39 umol/L (13-55) 02/14/24 14:36 Total Protein 6.4 g/dL (6.5-8.0) L 02/14/24 14:36 Albumin 3.8 g/dL (3.5-5.0) 02/14/24 14:36 TSH 0.92 uIU/mL (0.32-4.0) 02/14/24 14:36 Salicylates < 5.0 mg/dL (15-30) L 01/05/24 11:49 Acetaminophen < 3 mcg/mL (<30) 01/05/24 11:49 Clozapine 353 mcg/L 01/17/24 08:14 Norclozapine 196 mcg/L (25-400) 01/17/24 08:14 [place] 1.20 mmol/L (0.60-1.20) 01/21/24 12:20 Ethyl Alcohol < 10 mg/dL 01/05/24 11:49 COVID-19 ([facility]) Negative (Negative) 01/05/24 11:49 COVID-19 Clin Com See Note 01/05/24 11:49 Airway Mallampati Class: IV (Patient opens mouth but minimally) TM Dist: >3cm Neck ROM: Limited Loose/Missing/Broken Teeth: Yes (Some missing) Heart: RRR Lungs: CTAB Assessment and Plan Assessment Anesthesia Assessment: Anesthesia Plan Discussed and Chart Reviewed Final Anesthetic Review Family History of Problems with Anesthesia: No History of Problems with Anesthesia: No NPO: Yes ASA Class: III Final Preanesthetic Review: No Changes in Pt Med Stat, Meds/Allgs Chart Reviewed, Consent Obtained/Reviewed and Anes Risks/Benef Reviewed Patient Risk: Intermediate Procedure Risk: Intermediate Assessment/Block/Sedation in SS: Assess/Block/Sedation- Anesthetic Plan Anesthetic Plan: GA Disposition: Standard PACU
--- NOTE | 2024-02-12 10:43 | MHC.SHP ---
Pre-Procedural Eval Section A - 24 Hr Update-Section A only Date of Service: 02/12/24 The patient is an INPATIENT: Yes Changes since office visit: No Cold of Flu in the past 2 weeks, No New Medical Problems, No Changes in Medication and No Patient answered all questions The patient has been examined within 24 hours of the surgical procedure. The History & Physical has been completed within 30 days and I have reviewed it.: Yes Section B - Complete if H&P > 30 days Chief Complaint: catatonia Details of Present Illness: Patient is catatonic, HCP invoked and his father gave us consent Relevant Family History (Specify if Yes): No Relevant Social History: None Present Medications: see Short Stay Collaborative assessment Medical History: No relevant PMH History of Previous Operations: No relevant previous surgery Allergies: Allergies Allergy/AdvReac Type Severity Reaction Status Date / Time No Known Allergies [NKA] Allergy Unknown NONE Verified 01/05/24 11:31 Review of Systems Sugical H&P ROS: Negative: Constitution, Cardiovascular, Respiratory, Neurological, Psychiatric, Hem-Onc, Allergic/Immunologic, Gastrointestinal, Genitourinary, Musculoskeletal, Integumentary, Endocrine and Eyes/Ears/Nose/Throat Exam Surgical H&P Exam: Not Evaluated: HEENT, Not Evaluated: Heart, Not Evaluated: Lungs, Not Evaluated: Extremities, Not Evaluated: Abdomen, Not Evaluated: Skin and Not Evaluated: Neurological Plan Diagnosis/Plan: Unchanged I have reviewed the history and physical and performed a pertinent physical examination on my patient. No changes have occurred unless specified. Time Spent With Patient Time: Total time managing care of this patient today __15__ minutes.
[2024-02-12] MEDS: cloNIDine HCL 0.1 MG TABLET 0.05 MG PO ×2 (11:51→21:14)
[2024-02-12] MEDS: Sertraline HCL 100 MG TABLET PO ×2 (11:51→21:14)
--- NOTE | 2024-02-12 13:06 | HO.PSYCHPN ---
Subjective Subjective Date of Service: 02/12/24 Reason For Visit: catatonia Subjective Notes: Conditional Voluntary Interim History: The nursing staff reported the patient remains catatonic, staffing food on his mouth but not chewing it. He slept 7 hours. Today we scheduled ECT and we tried to contact his father but he was not able to be reached so he could not sign the conditional voluntary for ECT. On interview the patient remains catatonic. Mental Status Exam Mental Status Exam Patient Appearance: Disheveled and Unkempt Patient Orientation: Person and Situation Level of Consciousness: Awake and Appropriate Patient Behavior: Passive Mood Description: Withdrawn Affect Description: Blunted Patient Cognition Impaired: Yes Ability to Follow Directions: Poor Speech Pattern: No Speech Hallucinations: None Delusions: Paranoid Ideation and Ideas of Reference Thought Process: Illogical and Slowed Thinking Thought Content: positive for Poverty of Content Judgement: Poor Diagnostics Vital Signs (24Hr): Vital Signs - 24 hr 02/11/24 20:00 02/12/24 08:00 02/12/24 09:29 Temperature 98.1 F 97.1 F 97 F Pulse Rate 73 68 66 Respiratory Rate 18 18 18 Blood Pressure 130/67 128/65 151/85 H Pulse Oximetry 98 97 97 Oxygen Delivery Method Room Air Room Air Room Air BMI result Body Mass Index 30.7 Labs 01/05/24 11:49 02/11/24 10:16 Labs: Laboratory Results - last 48 hr 02/11/24 02/11/24 02/12/24 06:50 10:16 06:36 Creatinine 1.21 Estim Creat Clear Calc 75.8 Estimated GFR > 60 POC Glucose 114 130 H 02/12/24 10:14 Creatinine Estim Creat Clear Calc Estimated GFR POC Glucose 102 Imaging Radiology Impressions: ITS Impressions Chest X-Ray 01/07/24 13:27 IMPRESSION: Bronchial wall thickening may be infectious and/or inflammatory in etiology. Electronically signed by: Marianna Torres MD 01/07/2024 03:31 PM EDT Medications Medications Current Medications Acetaminophen (Acetaminophen 325 Mg Tablet) 650 mg PO Q6H PRN PRN Reason: Headache/Pain Mild Scale (1-3) Last Admin: 01/12/24 09:03 Dose: 650 mg Acetaminophen (Acetaminophen 325 Mg Tablet) 650 mg PO ONCE PRN PRN Reason: Pain, Mild (Pain Scale 1-3) Stop: 02/12/24 16:27 Al Hydroxide/Mg Hydroxide (Magnesium Hydrox/Alum Hydrox 30 Ml Oral.Susp) 30 ml PO Q6H PRN PRN Reason: Heartburn/Nausea Clonidine HCl (Clonidine Hcl 0.1 Mg Tablet) 0.05 mg PO BID [facility]; Protocol Last Admin: 02/12/24 11:51 Dose: 0.05 mg Clozapine 200 mg/ Clozapine 50 (mg) 250 mg PO DAILY@1930 [facility] Last Admin: 02/11/24 20:18 Dose: 250 mg Docusate Sodium (Docusate Sodium 100 Mg Capsule) 100 mg PO BID [facility] Last Admin: 02/12/24 12:05 Dose: Not Given Glucose (Glucose Gel 15 Gm Gel..Gram.) 15 gm PO Q15M PRN; Protocol PRN Reason: per Hypoglycemia Standing Ord. Hydroxyzine HCl (Hydroxyzine Hcl 25 Mg Tablet) 25 mg PO Q6H PRN PRN Reason: Anxiety Dextrose (D10) 250 mls @ 750 mls/hr IV Q15M PRN; Protocol PRN Reason: per Hypoglycemia Standing Ord. Lactated Ringer's (Lr) 1,000 mls @ 100 mls/hr IVCONT .Q10H [facility] Last Admin: 02/12/24 09:32 Dose: 100 mls/hr Insulin Human Lispro (Insulin Lispro 100 Unit/Ml 3 Ml Vial) 0 unit SUBCUT DAILY [facility]; Protocol Last Admin: 02/12/24 11:57 Dose: Not Given Magnesium Hydroxide (Milk Of Magnesia 30 Ml Oral.Susp) 30 ml PO DAILY PRN PRN Reason: Constipation Last Admin: 01/11/24 12:48 Dose: 30 ml Omeprazole (Omeprazole 20 Mg Capsule.Dr) 20 mg PO DAILY@0630 [facility] Last Admin: 02/12/24 05:14 Dose: Not Given Ondansetron HCl (Ondansetron Hcl 4 Mg/2 Ml Vial) 4 mg IVPUSH ONCE PRN PRN Reason: Nausea and Vomiting Stop: 02/12/24 16:27 Polyethylene Glycol (Polyethylene Glycol 3350 17 Gm Powd.Pack) 17 gm PO DAILY [facility] Last Admin: 02/12/24 11:56 Dose: 17 gm Senna (Sennosides 8.6 Mg Tablet) 17.2 mg PO BEDTIME [facility] Last Admin: 02/11/24 20:19 Dose: 17.2 mg Sertraline HCl (Sertraline Hcl 100 Mg Tablet) 100 mg PO BID [facility] Last Admin: 02/12/24 11:51 Dose: 100 mg Tamsulosin HCl (Tamsulosin Hcl 0.4 Mg Capsule) 0.4 mg PO BEDTIME [facility] Last Admin: 02/11/24 20:19 Dose: 0.4 mg Trazodone HCl (Trazodone Hcl 50 Mg Tablet) 50 mg PO BEDTIME MRX1 PRN PRN Reason: Insomnia Last Admin: 01/17/24 19:56 Dose: 50 mg Allergies Allergies Allergy/AdvReac Type Severity Reaction Status Date / Time No Known Allergies [NKA] Allergy Unknown NONE Verified 01/05/24 11:31 Assessment & Plan Assessment & Plan (1) Pre-op evaluation: Status: Acute Code(s): Z01.818 - Encounter for other preprocedural examination Plan Patient is a 58-year-old male with a PMH significant for HTN, [id number] type 2 diabetes, BPH, schizoaffective disorder, and depression with catatonia admitted to [facility] with hospitalist consult ECT risk stratification. ECT risk stratification Patient with history of multiple prior ECT without apparent complications No apparent acute medical complaints, vitals and EKG reassuring RCRI class 1 risk, 0 points; no additional cardiac workup indicated Based on patient's history, exam, and EKG, there are no apparent contraindications for the planned procedure Plan 1. Continue with Clozaril. 2. Continue with Ativan t.i.d.. 3. Scheduled for ECT next Monday. Reason for continued inpatient stay Substantial Risk for: inability to function, rapid decompensation and med/psych decompensation Time Spent With Patient Time: Total time managing care of this patient today __20__ minutes.
[2024-02-12] MEDS: LORazepam 1 MG TABLET 2 MG PO (15:58)
[2024-02-12 20:10] VITALS: BP 143/69; PULSE 93; RESP 18; TEMP 36.9; O2SAT 94
[2024-02-12] MEDS: cloZAPine 200 MG, cloZAPine 50 MG 250 MG PO (21:13)
[2024-02-12] MEDS: Tamsulosin HCL 0.4 MG CAPSULE PO (21:14)
[2024-02-12] MEDS: Sennosides 8.6 MG TABLET 17.2 MG PO (21:14)
[2024-02-12] MEDS: Docusate Sodium 100 MG CAPSULE PO (21:14)
--- NOTE | 2024-02-13 | ECG_ITS ---
Test Reason : fall Blood Pressure : / mmHG Vent. Rate : 084 BPM Atrial Rate : 084 BPM P-R Int : 148 ms QRS Dur : 080 ms QT Int : 380 ms P-R-T Axes : 054 030 045 degrees QTc Int : 449 ms Sinus rhythm with Premature atrial complexes with Aberrant conduction Nonspecific T wave abnormality Abnormal ECG When compared with ECG of 08-FEB-2024 15:53, Aberrant conduction is now Present Referred By: Poncho Beauchamp Electronically Signed By:AUGUSTO RAYMUNDO MD
[2024-02-13] MEDS: Omeprazole 20 MG CAPSULE.DR PO (07:08)
[2024-02-13 07:28] LABS: Glucose, Whole Blood 115 mg/dL (60-115)
[2024-02-13 08:23] VITALS: BP 125/68; PULSE 88; RESP 15; TEMP 36.7; O2SAT 94
[2024-02-13] MEDS: cloNIDine HCL 0.1 MG TABLET 0.05 MG PO ×2 (08:24→19:40)
[2024-02-13] MEDS: Sertraline HCL 100 MG TABLET PO ×2 (08:24→19:40)
[2024-02-13] MEDS: Docusate Sodium 100 MG CAPSULE PO ×2 (08:25→19:41)
[2024-02-13] MEDS: polyethylene glycoL 3350 17 GM POWD.PACK PO (09:04)
[2024-02-13 10:27] VITALS: BP 122/75; PULSE 78; RESP 16; TEMP 36.9; O2SAT 96
[2024-02-13] MEDS: hydrOXYzine HCL 25 MG TABLET PO (12:56)
--- NOTE | 2024-02-13 13:06 | HO.PSYCHPN ---
Subjective Subjective Date of Service: 02/13/24 Reason For Visit: catatonia Subjective Notes: Conditional Voluntary Healthcare Proxy: Yes Interim History: The nursing staff reported the patient had been more catatonic and agitated at times. Today at noon he was sitting on the floor very shaky and confused. I interview him and he agreed to have Ativan IM. We order it and we will reassess. We contact his father and he is going to be available for tomorrow for the consult for ECT since the patient is unable to give us consent. Mental Status Exam Mental Status Exam Patient Appearance: Appropriate Patient Orientation: Person and Situation Level of Consciousness: Awake and Appropriate Patient Behavior: Guarded Mood Description: Blunted Affect Description: Blunted Patient Cognition Impaired: Yes Ability to Follow Directions: Fair Speech Pattern: Impoverished Hallucinations: None Delusions: Paranoid Ideation and Ideas of Reference Thought Process: Distracted and Slowed Thinking Thought Content: positive for [place] and positive for Poverty of Content Judgement: Poor Diagnostics Vital Signs (24Hr): Vital Signs - 24 hr 02/12/24 20:10 02/13/24 08:23 Temperature 98.4 F 98.1 F Pulse Rate 93 88 Respiratory Rate 18 15 Blood Pressure 143/69 H 125/68 Pulse Oximetry 94 94 Oxygen Delivery Method Room Air Room Air BMI result Body Mass Index 30.7 Labs 01/05/24 11:49 02/11/24 10:16 Labs: Laboratory Results - last 48 hr 02/12/24 02/12/24 02/13/24 06:36 10:14 07:10 POC Glucose 130 H 102 115 Imaging Radiology Impressions: ITS Impressions Chest X-Ray 01/07/24 13:27 IMPRESSION: Bronchial wall thickening may be infectious and/or inflammatory in etiology. Electronically signed by: Marianna Torres MD 01/07/2024 03:31 PM EDT RP Medications Medications Current Medications Acetaminophen (Acetaminophen 325 Mg Tablet) 650 mg PO Q6H PRN PRN Reason: Headache/Pain Mild Scale (1-3) Last Admin: 01/12/24 09:03 Dose: 650 mg Al Hydroxide/Mg Hydroxide (Magnesium Hydrox/Alum Hydrox 30 Ml Oral.Susp) 30 ml PO Q6H PRN PRN Reason: Heartburn/Nausea Clonidine HCl (Clonidine Hcl 0.1 Mg Tablet) 0.05 mg PO BID [facility]; Protocol Last Admin: 02/13/24 08:24 Dose: 0.05 mg Clozapine 200 mg/ Clozapine 50 (mg) 250 mg PO DAILY@1930 [facility] Last Admin: 02/12/24 21:13 Dose: 250 mg Docusate Sodium (Docusate Sodium 100 Mg Capsule) 100 mg PO BID [facility] Last Admin: 02/13/24 08:25 Dose: 100 mg Glucose (Glucose Gel 15 Gm Gel..Gram.) 15 gm PO Q15M PRN; Protocol PRN Reason: per Hypoglycemia Standing Ord. Hydroxyzine HCl (Hydroxyzine Hcl 25 Mg Tablet) 25 mg PO Q6H PRN PRN Reason: Anxiety Last Admin: 02/13/24 12:56 Dose: 25 mg Dextrose (D10) 250 mls @ 750 mls/hr IV Q15M PRN; Protocol PRN Reason: per Hypoglycemia Standing Ord. Insulin Human Lispro (Insulin Lispro 100 Unit/Ml 3 Ml Vial) 0 unit SUBCUT DAILY [facility]; Protocol Last Admin: 02/13/24 09:05 Dose: Not Given Lorazepam (Lorazepam 2 Mg/Ml Vial) 2 mg IM ONCE ONE Stop: 02/13/24 13:05 Magnesium Hydroxide (Milk Of Magnesia 30 Ml Oral.Susp) 30 ml PO DAILY PRN PRN Reason: Constipation Last Admin: 01/11/24 12:48 Dose: 30 ml Omeprazole (Omeprazole 20 Mg Capsule.Dr) 20 mg PO DAILY@0630 [facility] Last Admin: 02/13/24 07:08 Dose: 20 mg Polyethylene Glycol (Polyethylene Glycol 3350 17 Gm Powd.Pack) 17 gm PO DAILY [facility] Last Admin: 02/13/24 09:04 Dose: 17 gm Senna (Sennosides 8.6 Mg Tablet) 17.2 mg PO BEDTIME [facility] Last Admin: 02/12/24 21:14 Dose: 17.2 mg Sertraline HCl (Sertraline Hcl 100 Mg Tablet) 100 mg PO BID [facility] Last Admin: 02/13/24 08:24 Dose: 100 mg Tamsulosin HCl (Tamsulosin Hcl 0.4 Mg Capsule) 0.4 mg PO BEDTIME [facility] Last Admin: 02/12/24 21:14 Dose: 0.4 mg Trazodone HCl (Trazodone Hcl 50 Mg Tablet) 50 mg PO BEDTIME MRX1 PRN PRN Reason: Insomnia Last Admin: 01/17/24 19:56 Dose: 50 mg Allergies Allergies Allergy/AdvReac Type Severity Reaction Status Date / Time No Known Allergies [NKA] Allergy Unknown NONE Verified 01/05/24 11:31 Assessment & Plan Assessment & Plan (1) Pre-op evaluation: Status: Acute Code(s): Z01.818 - Encounter for other preprocedural examination Plan Patient is a 58-year-old male with a PMH significant for HTN, unr-ukxcivq-ovzsbnrwm type 2 diabetes, BPH, schizoaffective disorder, and depression with catatonia admitted to [facility] with hospitalist consult ECT risk stratification. ECT risk stratification Patient with history of multiple prior ECT without apparent complications No apparent acute medical complaints, vitals and EKG reassuring RCRI class 1 risk, 0 points; no additional cardiac workup indicated Based on patient's history, exam, and EKG, there are no apparent contraindications for the planned procedure Plan 1. Continue with Clozaril. 2. Continue with Ativan t.i.d.. 3. Scheduled for ECT next Monday. We are going to restart on Monday since we could not get consents from the father who is the healthcare proxy. 4. On February 12 we gave him Ativan 2 mg IM Reason for continued inpatient stay Substantial Risk for: inability to function, rapid decompensation and med/psych decompensation Time Spent With Patient Time: Total time managing care of this patient today __20__ minutes.
[2024-02-13] MEDS: LORazepam 2 MG/ML VIAL IM (13:13)
[2024-02-13 14:39] LABS: Glucose, Whole Blood 89 mg/dL (60-115)
--- NOTE | 2024-02-13 14:44 | PM.EVENT ---
Event Note Date of Service: 02/13/24 Event Note: 58 yo male on [facility] psych with a pmhx significant for mood disroder, BPH, HTN and DM, rapid response called for mechanical fall. The floor staff report that he has been disoriented the past few days as if he is walking in space and he stood up from a sitting position and slowly fell backwards. fall was witnessed. no complaints of lightheadedness, chest pain or SOB prior. Pt received ativan 2mg IM just prior to the episode. PE: Pt responsive to questions, jaw chattering, tremor mostly of right arm. did not appear to be seizure like activity as he was responsive. no incontinence. c-spine held and c-collar placed and pt transferred to stretcher. vitals stable. POC normal. A/P: mechanical fall, likely secondary to recent ativan/confused psychiatric state head/cervical spine/B hip CT ordered to r/o fracture or bleed Time Spent With Patient Time: Total time managing care of this patient today ____ minutes.
--- NOTE | 2024-02-13 16:11 | PC.NURSE ---
Pt had a behavioral episode, where he sat down on the floor. He then leaned back and his trunk was lowered safely to the ground. While patient was laying down, Dr Beauchamp came out to assess him. He asked the patient if he would like Ativan 2mg IM, and pt agreed to this. That medication was administered by this real estate underwriter. Pt was then placed on an unofficial 1:1 staffing ratio. Pt was walked to his bed, and layed down there. 40 minutes after the Ativan was administered, pt was fluttering his eyes, waving his hands, appeared to be hallucinating both visually and auditoril, and laughing inappropriately.. This real estate underwriter texted Dr. Beauchamp to request that he come and assess the patient. Dr Beauchamp read the text, and did not come to assess. The patient then got up and walked to the dinning room area with his unofficial 1:1 staff. He then sat back down on his bottom (on the floor) and his trunk fell backwards and his head hit the floor, the 1:1 was unable to keep his head from hitting the floor. A rapid response was called, and BL hip/head/cervical spine CT's were ordered. Please see report of cervical spine for additional information. All other reports without finding. This real estate underwriter texted Dr. Beauchamp and sent it priority. Dr Beauchamp called the unit and spoke to this real estate underwriter. This real estate underwriter made him aware of the fall, the findings, and requested that he call the father of the patient, which he agreed to. This real estate underwriter provided him with that contact information. Dr. Beauchamp called this real estate underwriter back, instructed her to keep the cervical collar on the patient until the MRI which he will get tomorrow, is read. This real estate underwriter sent out a text message to the whole group of [employer] employees. Pt currently appears to be resting comfortably on stretcher, with 1:1 staff at his side.
--- NOTE | 2024-02-13 18:29 | P.CONHOSP_ITS ---
History of Present Illness Data of Consult Service Date: 02/13/24 Primary Care Provider: Jonn Smith MD HPI 58-year-old male with history of mood disorder, BPH, hypertension, diabetes mellitus admitted to [facility] for mental health care of catatonia. Rapid response was called this afternoon after the patient had a fall in the hallway. According to the staff the patient did hit his head and has seemed disoriented prior. No visible injury was noted to patient and vital signs were stable. Review of Systems 2 Review of Systems: Yes Unobtainable due to mental status PMFSH Medical History Mild sleep apnea Nocturnal hypoxia Routine medical exam Joint inflammation of right hand and wrist Status post fall Adult general medical exam Screening for colon cancer Screening for prostate cancer Cough Schizophrenia, catatonic BPH (benign prostatic hyperplasia) Essential (primary) hypertension Diabetes mellitus Family History Mother Cancer Father Kidney agenesis Surgical History History of colonoscopy (~06/15/21) History of tooth extraction History of root canal procedure Social History Household Members: None Housing: Apartment Do you presently have visiting nurse or other home services: Yes Unable to assess alcohol history related to: Unable to respond Alcohol intake: former Comment: 1:1 Patient Tobacco Use Status: Never used Tobacco e-Cigarette/Vaping Use: Never Used Second Hand Smoke Exposure: No service: No Current occupational status: employed Sexual orientation: Straight/Heterosexual Cognitive needs: No Hearing needs: No Vision needs: No Meds Allergies Allergy/AdvReac Type Severity Reaction Status Date / Time No Known Allergies [NKA] Allergy Unknown NONE Verified 01/05/24 11:31 Active Medications: Current Medications Acetaminophen (Acetaminophen 325 Mg Tablet) 650 mg PO Q6H PRN PRN Reason: Headache/Pain Mild Scale (1-3) Last Admin: 01/12/24 09:03 Dose: 650 mg Al Hydroxide/Mg Hydroxide (Magnesium Hydrox/Alum Hydrox 30 Ml Oral.Susp) 30 ml PO Q6H PRN PRN Reason: Heartburn/Nausea Clonidine HCl (Clonidine Hcl 0.1 Mg Tablet) 0.05 mg PO BID [facility]; Protocol Last Admin: 02/13/24 08:24 Dose: 0.05 mg Clozapine 200 mg/ Clozapine 50 (mg) 250 mg PO DAILY@1930 [facility] Last Admin: 02/12/24 21:13 Dose: 250 mg Docusate Sodium (Docusate Sodium 100 Mg Capsule) 100 mg PO BID [facility] Last Admin: 02/13/24 08:25 Dose: 100 mg Glucose (Glucose Gel 15 Gm Gel..Gram.) 15 gm PO Q15M PRN; Protocol PRN Reason: per Hypoglycemia Standing Ord. Hydroxyzine HCl (Hydroxyzine Hcl 25 Mg Tablet) 25 mg PO Q6H PRN PRN Reason: Anxiety Last Admin: 02/13/24 12:56 Dose: 25 mg Dextrose (D10) 250 mls @ 750 mls/hr IV Q15M PRN; Protocol PRN Reason: per Hypoglycemia Standing Ord. Insulin Human Lispro (Insulin Lispro 100 Unit/Ml 3 Ml Vial) 0 unit SUBCUT DAILY [facility]; Protocol Last Admin: 02/13/24 09:05 Dose: Not Given Magnesium Hydroxide (Milk Of Magnesia 30 Ml Oral.Susp) 30 ml PO DAILY PRN PRN Reason: Constipation Last Admin: 01/11/24 12:48 Dose: 30 ml Omeprazole (Omeprazole 20 Mg Capsule.Dr) 20 mg PO DAILY@0630 [facility] Last Admin: 02/13/24 07:08 Dose: 20 mg Polyethylene Glycol (Polyethylene Glycol 3350 17 Gm Powd.Pack) 17 gm PO DAILY [facility] Last Admin: 02/13/24 09:04 Dose: 17 gm Senna (Sennosides 8.6 Mg Tablet) 17.2 mg PO BEDTIME [facility] Last Admin: 02/12/24 21:14 Dose: 17.2 mg Sertraline HCl (Sertraline Hcl 100 Mg Tablet) 100 mg PO BID [facility] Last Admin: 02/13/24 08:24 Dose: 100 mg Tamsulosin HCl (Tamsulosin Hcl 0.4 Mg Capsule) 0.4 mg PO BEDTIME [facility] Last Admin: 02/12/24 21:14 Dose: 0.4 mg Trazodone HCl (Trazodone Hcl 50 Mg Tablet) 50 mg PO BEDTIME MRX1 PRN PRN Reason: Insomnia Last Admin: 01/17/24 19:56 Dose: 50 mg Home Medications ?Medication ?Instructions ?Recorded ?Confirmed ?Last Taken ?Type aripiprazole 5 mg tablet 5 mg PO BEDTIME 01/05/24 01/05/24 01/03/24 History lithium carbonate 300 mg capsule 300 mg PO BID 01/05/24 01/05/24 01/05/24 History omeprazole 20 mg capsule,delayed 20 mg PO DAILY@0630 01/05/24 01/05/24 01/05/24 History release polyethylene glycol 3350 17 17 g PO DAILY 01/05/24 01/05/24 01/05/24 History gram/dose oral powder (Miralax) sennosides 8.6 mg tablet (senna) 17.2 mg PO BEDTIME 01/05/24 01/05/24 01/05/24 History tamsulosin 0.4 mg capsule 0.4 mg PO BEDTIME 01/05/24 01/05/24 01/03/24 History Physical Exam 2 Vital Signs and Narrative: Vital Signs: Last Vital Signs Temp 98.5 F 02/13/24 10:27 Pulse 78 02/13/24 10:27 Resp 16 02/13/24 10:27 BP 122/75 02/13/24 10:27 Pulse Ox 96 02/13/24 10:27 O2 Del Method Room Air 02/13/24 10:27 BMI result Body Mass Index 30.7 Alert, not oriented, confused Normal neurological exam, patient singing and saying random words which is patient's baseline at this time C-collar cleared lungs normal expansion [facility]RAY Results Labs 01/05/24 11:49 02/11/24 10:16 Labs: Laboratory Results - last 24 hr 02/13/24 02/13/24 07:10 14:35 POC Glucose 115 89 Imaging Radiologist's Impressions: Impressions Cervical Spine CT 02/13/24 14:54 IMPRESSION: Multilevel spondylosis likely representing DISH without acute fracture or trauma-related listhesis. A acute to subacute fracture of the syndesmophyte formation at C3 cannot be entire excluded. If patient's symptoms persist recommend non-IV contrast MRI cervical spine. Fleischner guidelines were followed. Electronically signed by: Mayank Irwin MD 02/13/2024 03:34 [place] [facility] [place] 02/13/24 14:54 IMPRESSION: No acute fracture, bony calvarium or acute intracranial hemorrhage. Stable brain. Electronically signed by: Mayank Irwin MD 02/13/2024 03:39 PM EST RP Hip CT 02/13/24 14:54 IMPRESSION: No acute fracture or dislocation right coxofemoral joints/right hip. Electronically signed by: Mayank Irwin MD 02/13/2024 03:48 PM EST RP Hip CT 02/13/24 14:54 IMPRESSION: No acute fracture or dislocation, left coxofemoral joint/hip. Electronically signed by: Mayank Irwin MD 02/13/2024 03:44 PM EST RP Assessment and Plan (1) Fall: Status: Acute Plan 58-year-old man currently in [facility]. Medical consultation placed after mechanical fall in the hallway with no loss of consciousness Mechanical fall Multiple imaging studies completed. Hip CT and head CT negative for acute abnormality Cervical spine CT showed acute to subacute fracture of the syndesmophyte formation at C3 Discussed this with [facility] neurosurgery (Laila MICHAEL). After looking at the images that were uploaded to [employer], provider for neurosurgery stated that there is no structural fracture and seems more like an osteophyte was fractured. ok to clear C-collar Obviously if patient develops severe pain or any neurological deficits [facility] Neurosurgery should be contacted Avoid having patient ambulate after being medicated with sedative medications Medical consultation complete. Consult hospitalist service if for any further questions or if in need of further assistance.
--- NOTE | 2024-02-13 18:40 | PC.NURSE ---
Per Dr. Wilkinson, hospitalist, pt may safely have cervical collar removed as there are no longer potential concerning findings.
[2024-02-13] MEDS: OLANZapine ODT 10 MG TAB.RAPDIS TRANSLINGU (18:51)
[2024-02-13] MEDS: cloZAPine 200 MG, cloZAPine 50 MG 250 MG PO (19:39)
[2024-02-13 19:40] VITALS: BP 138/72
[2024-02-13] MEDS: traZODone HCL 50 MG TABLET PO (19:40)
[2024-02-13] MEDS: Tamsulosin HCL 0.4 MG CAPSULE PO (19:40)
[2024-02-13] MEDS: Sennosides 8.6 MG TABLET 17.2 MG PO (19:40)
[2024-02-13 20:00] VITALS: BP 135/86; PULSE 90; RESP 15; TEMP 36.9; O2SAT 94
[2024-02-13 21:06] LABS: Glucose, Whole Blood 105 mg/dL (60-115)
[2024-02-14 00:28] VITALS: BP 128/81; PULSE 82; RESP 18; TEMP 36.4; O2SAT 95
[2024-02-14] MEDS: Acetaminophen 325 MG TABLET 650 MG PO (01:05)
[2024-02-14] MEDS: hydrOXYzine HCL 25 MG TABLET PO (01:06)
[2024-02-14] MEDS: traZODone HCL 50 MG TABLET PO (01:06)
[2024-02-14 04:30] VITALS: BP 133/76; PULSE 77; RESP 20; TEMP 36.6; O2SAT 95
[2024-02-14] MEDS: Omeprazole 20 MG CAPSULE.DR PO (05:52)
[2024-02-14 06:43] LABS: Glucose, Whole Blood 111 mg/dL (60-115)
[2024-02-14 08:00] VITALS: BP 130/80; PULSE 84; RESP 15; TEMP 36.8; O2SAT 96
--- NOTE | 2024-02-14 08:19 | P.PNPSI_ITS ---
Subjective Subjective Date of Service: 02/14/24 Reason For Visit: catatonia Subjective Notes: Conditional Voluntary Healthcare Proxy: Yes Interim History: The patient had a fall yesterday and CT scan of the cervical region found a probably all lesion. MRI was tried yesterday but he was too agitated. After the fall the patient had been very confused with agitated catatonia grossly disorganized and nonsensical. We are going to try to have an MRI again of the cervical spine but we are going to premedicate him. Yesterday I spoke with his father who is the healthcare proxy and stated that we are not going to do ECT right now until he is completely medically cleared. At this moment he has worsened and he is extremely grossly disorganized. Catatonic and agitated. Mental Status Exam Mental Status Exam Patient Appearance: Appropriate Patient Orientation: Person Level of Consciousness: Awake and Restless Patient Behavior: Restless Mood Description: Blunted Affect Description: Withdrawn Patient Cognition Impaired: Yes Ability to Follow Directions: Poor Speech Pattern: Impoverished Hallucinations: Auditory and Visual Delusions: Ideas of Reference Thought Process: Illogical Thought Content: positive for Thought Blocking and positive for Incoherent Judgement: Poor Diagnostics Vital Signs (24Hr): Vital Signs - 24 hr 02/13/24 08:23 02/13/24 10:27 02/13/24 19:40 Temperature 98.1 F 98.5 F Pulse Rate 88 78 Respiratory Rate 15 16 Blood Pressure 125/68 122/75 138/72 Pulse Oximetry 94 96 Oxygen Delivery Method Room Air Room Air 02/13/24 20:00 02/14/24 00:28 02/14/24 04:30 Temperature 98.4 F 97.6 F 97.9 F Pulse Rate 90 82 77 Respiratory Rate 15 18 20 Blood Pressure 135/86 128/81 133/76 Pulse Oximetry 94 95 95 Oxygen Delivery Method Room Air Room Air Room Air BMI result Body Mass Index 30.7 Labs 01/05/24 11:49 02/11/24 10:16 Labs: Laboratory Results - last 48 hr 02/12/24 02/13/24 02/13/24 10:14 07:10 14:35 POC Glucose 102 115 89 02/13/24 02/14/24 19:44 06:30 POC Glucose 105 111 Imaging Radiology Impressions: ITS Impressions Chest X-Ray 01/07/24 13:27 IMPRESSION: Bronchial wall thickening may be infectious and/or inflammatory in etiology. Electronically signed by: Marianna Torres MD 01/07/2024 03:31 PM EDT RP Cervical Spine CT 02/13/24 14:54 IMPRESSION: Multilevel spondylosis likely representing DISH without acute fracture or trauma-related listhesis. A acute to subacute fracture of the syndesmophyte formation at C3 cannot be entire excluded. If patient's symptoms persist recommend non-IV contrast MRI cervical spine. Fleischner guidelines were followed. Electronically signed by: Mayank Irwin MD 02/13/2024 03:34 PM EST RP Head CT 02/13/24 14:54 IMPRESSION: No acute fracture, bony calvarium or acute intracranial hemorrhage. Stable brain. Electronically signed by: Mayank Irwin MD 02/13/2024 03:39 PM EST RP Hip CT 02/13/24 14:54 IMPRESSION: No acute fracture or dislocation right coxofemoral joints/right hip. Electronically signed by: Mayank Irwin MD 02/13/2024 03:48 PM EST RP Hip CT 02/13/24 14:54 IMPRESSION: No acute fracture or dislocation, left coxofemoral joint/hip. Electronically signed by: Mayank Irwin MD 02/13/2024 03:44 PM EST RP Medications Medications Current Medications Acetaminophen (Acetaminophen 325 Mg Tablet) 650 mg PO Q6H PRN PRN Reason: Headache/Pain Mild Scale (1-3) Last Admin: 02/14/24 01:05 Dose: 650 mg Al Hydroxide/Mg Hydroxide (Magnesium Hydrox/Alum Hydrox 30 Ml Oral.Susp) 30 ml PO Q6H PRN PRN Reason: Heartburn/Nausea Clonidine HCl (Clonidine Hcl 0.1 Mg Tablet) 0.05 mg PO BID [facility]; Protocol Last Admin: 02/13/24 19:40 Dose: 0.05 mg Clozapine 200 mg/ Clozapine 50 (mg) 250 mg PO DAILY@1930 [facility] Last Admin: 02/13/24 19:39 Dose: 250 mg Docusate Sodium (Docusate Sodium 100 Mg Capsule) 100 mg PO BID [facility] Last Admin: 02/13/24 19:41 Dose: 100 mg Glucose (Glucose Gel 15 Gm Gel..Gram.) 15 gm PO Q15M PRN; Protocol PRN Reason: per Hypoglycemia Standing Ord. Hydroxyzine HCl (Hydroxyzine Hcl 25 Mg Tablet) 25 mg PO Q6H PRN PRN Reason: Anxiety Last Admin: 02/14/24 01:06 Dose: 25 mg Dextrose (D10) 250 mls @ 750 mls/hr IV Q15M PRN; Protocol PRN Reason: per Hypoglycemia Standing Ord. Insulin Human Lispro (Insulin Lispro 100 Unit/Ml 3 Ml Vial) 0 unit SUBCUT DAILY [facility]; Protocol Last Admin: 02/13/24 09:05 Dose: Not Given Magnesium Hydroxide (Milk Of Magnesia 30 Ml Oral.Susp) 30 ml PO DAILY PRN PRN Reason: Constipation Last Admin: 01/11/24 12:48 Dose: 30 ml Omeprazole (Omeprazole 20 Mg Capsule.Dr) 20 mg PO DAILY@0630 [facility] Last Admin: 02/14/24 05:52 Dose: 20 mg Polyethylene Glycol (Polyethylene Glycol 3350 17 Gm Powd.Pack) 17 gm PO DAILY [facility] Last Admin: 02/13/24 09:04 Dose: 17 gm Senna (Sennosides 8.6 Mg Tablet) 17.2 mg PO BEDTIME [facility] Last Admin: 02/13/24 19:40 Dose: 17.2 mg Sertraline HCl (Sertraline Hcl 100 Mg Tablet) 100 mg PO BID [facility] Last Admin: 02/13/24 19:40 Dose: 100 mg Tamsulosin HCl (Tamsulosin Hcl 0.4 Mg Capsule) 0.4 mg PO BEDTIME [facility] Last Admin: 02/13/24 19:40 Dose: 0.4 mg Trazodone HCl (Trazodone Hcl 50 Mg Tablet) 50 mg PO BEDTIME MRX1 PRN PRN Reason: Insomnia Last Admin: 02/14/24 01:06 Dose: 50 mg Allergies Allergies Allergy/AdvReac Type Severity Reaction Status Date / Time No Known Allergies [NKA] Allergy Unknown NONE Verified 01/05/24 11:31 Assessment & Plan Assessment & Plan (1) Fall: Status: Acute Code(s): W19.XXXA - Unspecified fall, initial encounter Plan 58-year-old man currently in [facility]. Medical consultation placed after mechanical fall in the hallway with no loss of consciousness Mechanical fall Multiple imaging studies completed. Hip CT and head CT negative for acute abnormality Cervical spine CT showed acute to subacute fracture of the syndesmophyte formation at C3 Discussed this with [facility] neurosurgery (Laila MICHAEL). After looking at the images that were uploaded to [email or web address], provider for neurosurgery stated that there is no structural fracture and seems more like an osteophyte was fractured. ok to clear C-collar Obviously if patient develops severe pain or any neurological deficits [facility] Neurosurgery should be contacted Avoid having patient ambulate after being medicated with sedative medications Medical consultation complete. Consult hospitalist service if for any further questions or if in need of further assistance. Plan 1. Repeat MRI. 2. We are going to give Zyprexa 20 IM and Ativan 2 IM since the patient is grossly agitated and disorganized.. 3. On one-to-one for safety. 4. When he is medically clear we will do ECT since the patient having agitated catatonia, he has worsened in the last days. Reason for continued inpatient stay Substantial Risk for: inability to function, rapid decompensation and med/psych decompensation Time Spent With Patient Time: Total time managing care of this patient today __20__ minutes.
[2024-02-14] MEDS: OLANZapine 10 MG VIAL 20 MG IM (12:41)
[2024-02-14] MEDS: LORazepam 2 MG/ML VIAL IM (12:41)
[2024-02-14] MEDS: LORazepam 2 MG/ML VIAL IVPUSH (14:04)
[2024-02-14 14:37] LABS: MANUAL DIFF FLAG NO
[2024-02-14 14:42] LABS: Basophils Percent Auto 0.1 % (0-2); Hematocrit 37.5 % (42.0-52.0); Hemoglobin 12.5 g/dl (14.0-18.0); Imm Gran Abs Auto 0.02 X10*3/uL (0.00-0.03); Imm Gran Pct Auto 0.3 % (0.0-0.4); Lymphocytes Absolute Auto 1.4 X10*3/uL (1.2-4.9); Lymphocytes Percent Auto 19.9 % (20-40); Mean Corpuscular HGB Conc 33.3 g/dl (31.0-36.0); Mean Corpuscular Hemoglobin 28.8 pg (27.0-33.0); Mean Corpuscular Volume 86.4 fL (80.0-98.0); Monocytes Absolute Auto 0.6 X10*3/uL (0.1-1.2); Monocytes Percent Auto 8.3 % (2-11); Neutrophils Absolute Auto 4.9 x10*3/uL (2.0-8.3); Neutrophils Percent Auto 71.4 % (45-73); Platelet Count 130 X10*3/uL (160-400); Red Blood Count 4.34 X10*6/uL (4.60-5.80); Red Cell Distribution Width 12.7 % (11.0-16.0); White Blood Count 6.9 X10*3/uL (4.8-10.8)
[2024-02-14 14:46] LABS: Ammonia 39 umol/L (13-55)
[2024-02-14 14:56] LABS: Alanine Aminotransferase 13 U/L (0-40); Albumin Level 3.8 g/dL (3.5-5.0); Anion Gap 15 (12-20); Aspartate Amino Transferase 26 U/L (5-37); Bilirubin Total 0.5 mg/dL (0.0-1.0); Blood Urea Nitrogen 21 mg/dL (9-16); Calcium 9.1 mg/dL (8.4-10.2); Carbon Dioxide 23 mmol/L (22-29); Chloride 110 mmol/L (96-108); Creatinine Clr Calc Pharmacy 70.5; Estimated Glomerular Filt Rate 56; Glucose Fasting 99 mg/dL (60-99); Potassium 3.8 mmol/L (3.3-5.1); Sodium 144 mmol/L (135-145); Total Protein 6.4 g/dL (6.5-8.0)
[2024-02-14 15:08] LABS: Alkaline Phosphatase 63 U/L (39-117)
[2024-02-14 15:19] LABS: Thyroid Stimulating Hormone 0.92 uIU/mL (0.32-4.0)
[2024-02-14] MEDS: 0.9 % Sodium Chloride 1,000 ML 125 ML IVCONT (15:48)
[2024-02-14 20:00] VITALS: BP 142/88; PULSE 90; RESP 15; TEMP 36.3; O2SAT 92
[2024-02-14] MEDS: Sennosides 8.6 MG TABLET 17.2 MG PO (20:47)
[2024-02-14] MEDS: cloZAPine 200 MG, cloZAPine 50 MG 250 MG PO (20:47)
[2024-02-14] MEDS: Tamsulosin HCL 0.4 MG CAPSULE PO (20:47)
[2024-02-15] MEDS: 0.9 % Sodium Chloride 1,000 ML 125 ML IVCONT ×2 (03:03→13:12)
[2024-02-15 06:53] LABS: Glucose, Whole Blood 99 mg/dL (60-115)
[2024-02-15 08:00] VITALS: BP 129/66; PULSE 82; RESP 16; TEMP 36.3; O2SAT 94
--- NOTE | 2024-02-15 08:51 | P.PNPSI_ITS ---
Subjective Subjective Date of Service: 02/15/24 Reason For Visit: catatonia Subjective Notes: Conditional Voluntary Interim History: Pt with severe agitated catatonia, ECT was held due to question of cervical injury post fall on 02/13/24. Pt received ativan 2mg IM initially, later ativan 2mg IV push with good effect. He presented much more organized after that, speech more coherent, able to eat and drink. Labs were completed- cmp with stable renal function. Plan is for him to have ECT tomorrow on 02/16/24. Father, who is HCP needs to provide verbal consent prior to tx for anesthesia. Medication Compliance: Intermittent Diagnostics Vital Signs (24Hr): Vital Signs - 24 hr 02/14/24 20:00 Temperature 97.3 F Pulse Rate 90 Respiratory Rate 15 Blood Pressure 142/88 H Pulse Oximetry 92 Oxygen Delivery Method Room Air BMI result Body Mass Index 30.7 Labs 02/14/24 14:36 02/14/24 14:36 Labs: Laboratory Results - last 48 hr 02/13/24 02/13/24 02/14/24 14:35 19:44 06:30 WBC RBC Hgb Hct MCV MCH MCHC RDW Plt Count MPV Immature Gran % (Auto) Neut % (Auto) Lymph % (Auto) [place] % (Auto) Eos % (Auto) Baso % (Auto) Lymph # (Auto) [place] # (Auto) Eos # (Auto) Baso # (Auto) Abs Immat Gran (auto) Absolute Neuts (auto) Absolute Nucleated RBC Nucleated RBC % (auto) Sodium Potassium Chloride Carbon Dioxide Anion Gap BUN Creatinine Estim Creat Clear Calc Estimated GFR POC Glucose 89 105 111 Fasting Glucose Calcium Total Bilirubin AST ALT Alkaline Phosphatase Ammonia Total Protein Albumin TSH 02/14/24 02/15/24 14:36 06:36 WBC 6.9 RBC 4.34 L Hgb 12.5 L Hct 37.5 L MCV 86.4 MCH 28.8 MCHC 33.3 RDW 12.7 Plt Count 130 L MPV 11.0 Immature Gran % (Auto) 0.3 Neut % (Auto) 71.4 Lymph % (Auto) 19.9 L [place] % (Auto) 8.3 Eos % (Auto) 0.0 Baso % (Auto) 0.1 Lymph # (Auto) 1.4 [place] # (Auto) 0.6 Eos # (Auto) 0.0 Baso # (Auto) 0.0 Abs Immat Gran (auto) 0.02 Absolute Neuts (auto) 4.9 Absolute Nucleated RBC 0.000 Nucleated RBC % (auto) 0.0 Sodium 144 Potassium 3.8 Chloride 110 H Carbon Dioxide 23 Anion Gap 15 BUN 21 H Creatinine 1.30 Estim Creat Clear Calc 70.5 Estimated GFR 56 POC Glucose 99 Fasting Glucose 99 Calcium 9.1 Total Bilirubin 0.5 AST 26 ALT 13 Alkaline Phosphatase 63 Ammonia 39 Total Protein 6.4 L Albumin 3.8 TSH 0.92 Imaging Radiology Impressions: ITS Impressions Chest X-Ray 01/07/24 13:27 IMPRESSION: Bronchial wall thickening may be infectious and/or inflammatory in etiology. Electronically signed by: Marianna Torres MD 01/07/2024 03:31 PM EDT RP Cervical Spine CT 02/13/24 14:54 IMPRESSION: Multilevel spondylosis likely representing DISH without acute fracture or trauma-related listhesis. A acute to subacute fracture of the syndesmophyte formation at C3 cannot be entire excluded. If patient's symptoms persist recommend non-IV contrast MRI cervical spine. Fleischner guidelines were followed. Electronically signed by: Mayank Irwin MD 02/13/2024 03:34 PM EST RP Head CT 02/13/24 14:54 IMPRESSION: No acute fracture, bony calvarium or acute intracranial hemorrhage. Stable brain. Electronically signed by: Mayank Irwin MD 02/13/2024 03:39 PM EST RP Hip CT 02/13/24 14:54 IMPRESSION: No acute fracture or dislocation right coxofemoral joints/right hip. Electronically signed by: Mayank Irwin MD 02/13/2024 03:48 PM EST RP Hip CT 02/13/24 14:54 IMPRESSION: No acute fracture or dislocation, left coxofemoral joint/hip. Electronically signed by: Mayank Irwin MD 02/13/2024 03:44 PM EST RP Cervical Spine MRI 02/14/24 14:41 IMPRESSION: Within the limitations of the study, 1. No definitive evidence of fracture involving the C3 syndesmophyte. 2. Multilevel cervical spondylosis without significant spinal canal stenosis or cord compression. Mild multilevel neural foraminal narrowing as described above. Electronically signed by: Villa Tello MD 02/14/2024 03:51 PM [facility] Medications Medications Current Medications Acetaminophen (Acetaminophen 325 Mg Tablet) 650 mg PO Q6H PRN PRN Reason: Headache/Pain Mild Scale (1-3) Last Admin: 02/14/24 01:05 Dose: 650 mg Al Hydroxide/Mg Hydroxide (Magnesium Hydrox/Alum Hydrox 30 Ml Oral.Susp) 30 ml PO Q6H PRN PRN Reason: Heartburn/Nausea Clonidine HCl (Clonidine Hcl 0.1 Mg Tablet) 0.05 mg PO BID [facility]; Protocol Last Admin: 02/14/24 16:03 Dose: Not Given Clozapine 200 mg/ Clozapine 50 (mg) 250 mg PO DAILY@193 [facility] Last Admin: 02/14/24 20:47 Dose: 250 mg Docusate Sodium (Docusate Sodium 100 Mg Capsule) 100 mg PO BID [facility] Last Admin: 02/14/24 16:04 Dose: Not Given Glucose (Glucose Gel 15 Gm Gel..Gram.) 15 gm PO Q15M PRN; Protocol PRN Reason: per Hypoglycemia Standing Ord. Hydroxyzine HCl (Hydroxyzine Hcl 25 Mg Tablet) 25 mg PO Q6H PRN PRN Reason: Anxiety Last Admin: 02/14/24 01:06 Dose: 25 mg Dextrose (D10) 250 mls @ 750 mls/hr IV Q15M PRN; Protocol PRN Reason: per Hypoglycemia Standing Ord. Sodium Chloride (Ns) 1,000 mls @ 125 mls/hr IVCONT .Q8H [facility] Last Admin: 02/15/24 05:25 Dose: Not Given Insulin Human Lispro (Insulin Lispro 100 Unit/Ml 3 Ml Vial) 0 unit SUBCUT DAILY [facility]; Protocol Last Admin: 02/14/24 16:04 Dose: Not Given Magnesium Hydroxide (Milk Of Magnesia 30 Ml Oral.Susp) 30 ml PO DAILY PRN PRN Reason: Constipation Last Admin: 01/11/24 12:48 Dose: 30 ml Omeprazole (Omeprazole 20 Mg Capsule.Dr) 20 mg PO DAILY@0630 [facility] Last Admin: 02/14/24 05:52 Dose: 20 mg Polyethylene Glycol (Polyethylene Glycol 3350 17 Gm Powd.Pack) 17 gm PO DAILY [facility] Last Admin: 02/14/24 16:04 Dose: Not Given Senna (Sennosides 8.6 Mg Tablet) 17.2 mg PO BEDTIME [facility] Last Admin: 02/14/24 20:47 Dose: 17.2 mg Sertraline HCl (Sertraline Hcl 100 Mg Tablet) 100 mg PO BID [facility] Last Admin: 02/14/24 16:04 Dose: Not Given Tamsulosin HCl (Tamsulosin Hcl 0.4 Mg Capsule) 0.4 mg PO BEDTIME [facility] Last Admin: 02/14/24 20:47 Dose: 0.4 mg Trazodone HCl (Trazodone Hcl 50 Mg Tablet) 50 mg PO BEDTIME MRX1 PRN PRN Reason: Insomnia Last Admin: 02/14/24 01:06 Dose: 50 mg Allergies Allergies Allergy/AdvReac Type Severity Reaction Status Date / Time No Known Allergies [NKA] Allergy Unknown NONE Verified 01/05/24 11:31 Assessment & Plan Assessment & Plan (1) Schizophrenia, catatonic: Status: Acute Code(s): 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 Tenorio is a 58 year-old male with hx of schizophrenia. He has been presenting with catatonic symptoms. Limited response to ativan. He has been worsening, with more s/s of excitatory catatonia. 02/14- continue tx with plan to start ECT tomorrow morning. Reason for continued inpatient stay Substantial Risk for: inability to function Time Spent With Patient Time: Total time managing care of this patient today ____ minutes.
[2024-02-15 13:10] VITALS: BMI 29.8
[2024-02-15] MEDS: LORazepam 2 MG/ML VIAL IVPUSH (15:37)
[2024-02-15 20:00] VITALS: BP 128/73; PULSE 81; RESP 18; TEMP 36.8; O2SAT 94
[2024-02-15] MEDS: cloZAPine 200 MG, cloZAPine 50 MG 250 MG PO (21:24)
[2024-02-15] MEDS: Sennosides 8.6 MG TABLET 17.2 MG PO (21:25)
[2024-02-15] MEDS: Tamsulosin HCL 0.4 MG CAPSULE PO (21:26)
--- NOTE | 2024-02-16 06:59 | PC.NURSE ---
POC-67, GIVEN 240ml of [place] juice. Pt is responsive and swallowed w/o difficulty. [id number] at 07:03h -78.
[2024-02-16 07:09] LABS: Glucose, Whole Blood 78 mg/dL (60-115)
[2024-02-16 07:09] LABS: Glucose, Whole Blood 67 mg/dL (60-115)
[2024-02-16 08:00] VITALS: BP 142/74; PULSE 96; RESP 18; TEMP 36.6; O2SAT 94
[2024-02-16 10:17] LABS: Neut%MD 71.8 %; Neutrophils Absolute Auto 4.5 x10*3/uL (2.0-8.3); WBCANC 6.2 X10*3/uL
--- NOTE | 2024-02-16 12:18 | HO.PSYCHPN ---
Subjective Subjective Date of Service: 02/16/24 Reason For Visit: catatonia Subjective Notes: Conditional Voluntary Healthcare Proxy: Yes Interim History: The nursing staff reported the patient was scheduled for ECT but since he was not medically cleared it was canceled. Yesterday he was sedated and he had an IV access but it seems infiltrated swings to be removed. I consulted the hospitalist for a follow-up. On interview the patient looks slightly sedated, catatonic but not agitated. Mental Status Exam Mental Status Exam Patient Appearance: Appropriate Patient Orientation: Person and Situation Level of Consciousness: Awake and Appropriate Patient Behavior: Guarded and Passive Mood Description: Withdrawn Affect Description: Constricted Patient Cognition Impaired: Yes Ability to Follow Directions: Good Speech Pattern: Clear Hallucinations: None Delusions: Not Present Thought Process: Distracted and Slowed Thinking Thought Content: positive for [place], positive for Perseveration and positive for Thought Blocking Judgement: Poor Diagnostics Vital Signs (24Hr): Vital Signs - 24 hr 02/15/24 20:00 02/16/24 08:00 Temperature 98.2 F 97.9 F Pulse Rate 81 96 Respiratory Rate 18 18 Blood Pressure 128/73 142/74 H Pulse Oximetry 94 94 Oxygen Delivery Method Room Air Room Air BMI result Body Mass Index 29.8 Labs 02/14/24 14:36 02/14/24 14:36 Labs: Laboratory Results - last 48 hr 02/14/24 02/15/24 02/16/24 14:36 06:36 06:34 WBC 6.9 RBC 4.34 L Hgb 12.5 L Hct 37.5 L MCV 86.4 MCH 28.8 MCHC 33.3 RDW 12.7 Plt Count 130 L MPV 11.0 Immature Gran % (Auto) 0.3 Neut % (Auto) 71.4 Lymph % (Auto) 19.9 L [place] % (Auto) 8.3 Eos % (Auto) 0.0 Baso % (Auto) 0.1 Lymph # (Auto) 1.4 [place] # (Auto) 0.6 Eos # (Auto) 0.0 Baso # (Auto) 0.0 Abs Immat Gran (auto) 0.02 Absolute Neuts (auto) 4.9 Absolute Nucleated RBC 0.000 Nucleated RBC % (auto) 0.0 Sodium 144 Potassium 3.8 Chloride 110 H Carbon Dioxide 23 Anion Gap 15 BUN 21 H Creatinine 1.30 Estim Creat Clear Calc 70.5 Estimated GFR 56 POC Glucose 99 67 Fasting Glucose 99 Calcium 9.1 Total Bilirubin 0.5 AST 26 ALT 13 Alkaline Phosphatase 63 Ammonia 39 Total Protein 6.4 L Albumin 3.8 TSH 0.92 02/16/24 02/16/24 07:03 10:11 WBC RBC Hgb Hct MCV MCH MCHC RDW Plt Count MPV Immature Gran % (Auto) Neut % (Auto) Lymph % (Auto) [place] % (Auto) Eos % (Auto) Baso % (Auto) Lymph # (Auto) [place] # (Auto) Eos # (Auto) Baso # (Auto) Abs Immat Gran (auto) Absolute Neuts (auto) 4.5 Absolute Nucleated RBC Nucleated RBC % (auto) Sodium Potassium Chloride Carbon Dioxide Anion Gap BUN Creatinine Estim Creat Clear Calc Estimated GFR POC Glucose 78 Fasting Glucose Calcium Total Bilirubin AST ALT Alkaline Phosphatase Ammonia Total Protein Albumin TSH Imaging Radiology Impressions: ITS Impressions Chest X-Ray 01/07/24 13:27 IMPRESSION: Bronchial wall thickening may be infectious and/or inflammatory in etiology. Electronically signed by: Marianna Torres MD 01/07/2024 03:31 PM EDT RP Cervical Spine CT 02/13/24 14:54 IMPRESSION: Multilevel spondylosis likely representing DISH without acute fracture or trauma-related listhesis. A acute to subacute fracture of the syndesmophyte formation at C3 cannot be entire excluded. If patient's symptoms persist recommend non-IV contrast MRI cervical spine. Fleischner guidelines were followed. Electronically signed by: Mayank Irwin MD 02/13/2024 03:34 PM EST RP Head CT 02/13/24 14:54 IMPRESSION: No acute fracture, bony calvarium or acute intracranial hemorrhage. Stable brain. Electronically signed by: Mayank Irwin MD 02/13/2024 03:39 PM EST RP Hip CT 02/13/24 14:54 IMPRESSION: No acute fracture or dislocation right coxofemoral joints/right hip. Electronically signed by: Mayank Irwin MD 02/13/2024 03:48 PM EST RP Hip CT 02/13/24 14:54 IMPRESSION: No acute fracture or dislocation, left coxofemoral joint/hip. Electronically signed by: Mayank Irwin MD 02/13/2024 03:44 PM EST RP Cervical Spine MRI 02/14/24 14:41 IMPRESSION: Within the limitations of the study, 1. No definitive evidence of fracture involving the C3 syndesmophyte. 2. Multilevel cervical spondylosis without significant spinal canal stenosis or cord compression. Mild multilevel neural foraminal narrowing as described above. Electronically signed by: Villa Tello MD 02/14/2024 03:51 PM EST RP Medications Medications Current Medications Acetaminophen (Acetaminophen 325 Mg Tablet) 650 mg PO Q6H PRN PRN Reason: Headache/Pain Mild Scale (1-3) Last Admin: 02/14/24 01:05 Dose: 650 mg Al Hydroxide/Mg Hydroxide (Magnesium Hydrox/Alum Hydrox 30 Ml Oral.Susp) 30 ml PO Q6H PRN PRN Reason: Heartburn/Nausea Clonidine HCl (Clonidine Hcl 0.1 Mg Tablet) 0.05 mg PO BID [facility]; Protocol Last Admin: 02/14/24 16:03 Dose: Not Given Clozapine 200 mg/ Clozapine 50 (mg) 250 mg PO DAILY@1930 [facility] Last Admin: 02/15/24 21:24 Dose: 250 mg Docusate Sodium (Docusate Sodium 100 Mg Capsule) 100 mg PO BID [facility] Last Admin: 02/14/24 16:04 Dose: Not Given Glucose (Glucose Gel 15 Gm Gel..Gram.) 15 gm PO Q15M PRN; Protocol PRN Reason: per Hypoglycemia Standing Ord. Hydroxyzine HCl (Hydroxyzine Hcl 25 Mg Tablet) 25 mg PO Q6H PRN PRN Reason: Anxiety Last Admin: 02/14/24 01:06 Dose: 25 mg Dextrose (D10) 250 mls @ 750 mls/hr IV Q15M PRN; Protocol PRN Reason: per Hypoglycemia Standing Ord. Insulin Human Lispro (Insulin Lispro 100 Unit/Ml 3 Ml Vial) 0 unit SUBCUT DAILY [facility]; Protocol Last Admin: 02/16/24 09:13 Dose: Not Given Magnesium Hydroxide (Milk Of Magnesia 30 Ml Oral.Susp) 30 ml PO DAILY PRN PRN Reason: Constipation Last Admin: 01/11/24 12:48 Dose: 30 ml Omeprazole (Omeprazole 20 Mg Capsule.) 20 mg PO DAILY@0630 [facility] Last Admin: 02/14/24 05:52 Dose: 20 mg Polyethylene Glycol (Polyethylene Glycol 3350 17 Gm Powd.Pack) 17 gm PO DAILY [facility] Last Admin: 02/14/24 16:04 Dose: Not Given Senna (Sennosides 8.6 Mg Tablet) 17.2 mg PO BEDTIME [facility] Last Admin: 02/15/24 21:25 Dose: 17.2 mg Sertraline HCl (Sertraline Hcl 100 Mg Tablet) 100 mg PO DAILY [facility] Tamsulosin HCl (Tamsulosin Hcl 0.4 Mg Capsule) 0.4 mg PO BEDTIME [facility] Last Admin: 02/15/24 21:26 Dose: 0.4 mg Trazodone HCl (Trazodone Hcl 50 Mg Tablet) 50 mg PO BEDTIME MRX1 PRN PRN Reason: Insomnia Last Admin: 02/14/24 01:06 Dose: 50 mg Allergies Allergies Allergy/AdvReac Type Severity Reaction Status Date / Time No Known Allergies [NKA] Allergy Unknown NONE Verified 01/05/24 11:31 Assessment & Plan Assessment & Plan (1) Schizophrenia, catatonic: Status: Acute Code(s): F20.2 - Catatonic schizophrenia Plan Patient is a 58-year-old male with a PMH significant for HTN, [id number] type 2 diabetes, BPH, schizoaffective disorder, and depression with catatonia admitted to [facility] with hospitalist consult ECT risk stratification. ECT risk stratification Patient with history of multiple prior ECT without apparent complications No apparent acute medical complaints, vitals and EKG reassuring RCRI class 1 risk, 0 points; no additional cardiac workup indicated Based on patient's history, exam, and EKG, there are no apparent contraindications for the planned procedure Plan 1. The patient remains catatonic, we will schedule for ECT next Monday. 2. Hospitalist already cleared him up after his last fall. 3. Continue one-to-one observation. 4. Continue with Clozaril and benzodiazepines. Reason for continued inpatient stay Substantial Risk for: inability to function, rapid decompensation and med/psych decompensation Time Spent With Patient Time: Total time managing care of this patient today _20___ minutes.
[2024-02-16 20:00] VITALS: BP 141/67; PULSE 89; RESP 18; TEMP 36.5; O2SAT 94
[2024-02-16] MEDS: cloZAPine 200 MG, cloZAPine 50 MG 250 MG PO (21:21)
[2024-02-16] MEDS: Tamsulosin HCL 0.4 MG CAPSULE PO (21:22)
[2024-02-16] MEDS: Sennosides 8.6 MG TABLET 17.2 MG PO (21:22)
[2024-02-17 06:46] LABS: Glucose, Whole Blood 88 mg/dL (60-115)
[2024-02-17 07:59] VITALS: BP 126/66; PULSE 90; RESP 20; TEMP 36.3; O2SAT 95
--- NOTE | 2024-02-17 11:23 | HO.PSYCHPN ---
Subjective Subjective Date of Service: 02/17/24 Reason For Visit: catatonia Interim History: lying in bed, tremulous. making eye contact, not responding to questions. per chief of staff, restless, fell recently. no abnormalities post-fail re imaging. on 1:1 for safety. sleeping well. Mental Status Exam Mental Status Exam Patient Appearance: Appropriate Patient Orientation: Person Level of Consciousness: Awake Patient Behavior: Guarded and Passive Affect Description: Blunted Patient Cognition Impaired: Yes Ability to Follow Directions: Poor Speech Pattern: No Speech Judgement: Poor (impaired) Diagnostics Vital Signs (24Hr): Vital Signs - 24 hr 02/16/24 20:00 02/17/24 07:59 Temperature 97.7 F 97.4 F Pulse Rate 89 90 Respiratory Rate 18 20 Blood Pressure 141/67 H 126/66 Pulse Oximetry 94 95 Oxygen Delivery Method Room Air Room Air BMI result Body Mass Index 29.8 Labs 02/14/24 14:36 02/14/24 14:36 Labs: Laboratory Results - last 48 hr 02/16/24 02/16/24 02/16/24 06:34 07:03 10:11 Absolute Neuts (auto) 4.5 POC Glucose 67 78 02/17/24 06:24 Absolute Neuts (auto) POC Glucose 88 Imaging Radiology Impressions: ITS Impressions Chest X-Ray 01/07/24 13:27 IMPRESSION: Bronchial wall thickening may be infectious and/or inflammatory in etiology. Electronically signed by: Marianna Torres MD 01/07/2024 03:31 PM EDT RP Cervical Spine CT 02/13/24 14:54 IMPRESSION: Multilevel spondylosis likely representing DISH without acute fracture or trauma-related listhesis. A acute to subacute fracture of the syndesmophyte formation at C3 cannot be entire excluded. If patient's symptoms persist recommend non-IV contrast MRI cervical spine. Fleischner guidelines were followed. Electronically signed by: Mayank Irwin MD 02/13/2024 03:34 PM EST RP Head CT 02/13/24 14:54 IMPRESSION: No acute fracture, bony calvarium or acute intracranial hemorrhage. Stable brain. Electronically signed by: Mayank Irwin MD 02/13/2024 03:39 PM EST RP Hip CT 02/13/24 14:54 IMPRESSION: No acute fracture or dislocation right coxofemoral joints/right hip. Electronically signed by: Mayank Irwin MD 02/13/2024 03:48 PM EST RP Hip CT 02/13/24 14:54 IMPRESSION: No acute fracture or dislocation, left coxofemoral joint/hip. Electronically signed by: Mayank Irwin MD 02/13/2024 03:44 PM EST RP Cervical Spine MRI 02/14/24 14:41 IMPRESSION: Within the limitations of the study, 1. No definitive evidence of fracture involving the C3 syndesmophyte. 2. Multilevel cervical spondylosis without significant spinal canal stenosis or cord compression. Mild multilevel neural foraminal narrowing as described above. Electronically signed by: Villa Tello MD 02/14/2024 03:51 PM EST RP Medications Medications Current Medications Acetaminophen (Acetaminophen 325 Mg Tablet) 650 mg PO Q6H PRN PRN Reason: Headache/Pain Mild Scale (1-3) Last Admin: 02/14/24 01:05 Dose: 650 mg Al Hydroxide/Mg Hydroxide (Magnesium Hydrox/Alum Hydrox 30 Ml Oral.Susp) 30 ml PO Q6H PRN PRN Reason: Heartburn/Nausea Clonidine HCl (Clonidine Hcl 0.1 Mg Tablet) 0.05 mg PO BID [facility]; Protocol Last Admin: 02/14/24 16:03 Dose: Not Given Clozapine 200 mg/ Clozapine 50 (mg) 250 mg PO DAILY@1930 [facility] Last Admin: 02/16/24 21:21 Dose: 250 mg Docusate Sodium (Docusate Sodium 100 Mg Capsule) 100 mg PO BID [facility] Last Admin: 02/14/24 16:04 Dose: Not Given Glucose (Glucose Gel 15 Gm Gel..Gram.) 15 gm PO Q15M PRN; Protocol PRN Reason: per Hypoglycemia Standing Ord. Hydroxyzine HCl (Hydroxyzine Hcl 25 Mg Tablet) 25 mg PO Q6H PRN PRN Reason: Anxiety Last Admin: 02/14/24 01:06 Dose: 25 mg Dextrose (D10) 250 mls @ 750 mls/hr IV Q15M PRN; Protocol PRN Reason: per Hypoglycemia Standing Ord. Insulin Human Lispro (Insulin Lispro 100 Unit/Ml 3 Ml Vial) 0 unit SUBCUT DAILY [facility]; Protocol Last Admin: 02/17/24 07:43 Dose: Not Given Magnesium Hydroxide (Milk Of Magnesia 30 Ml Oral.Susp) 30 ml PO DAILY PRN PRN Reason: Constipation Last Admin: 01/11/24 12:48 Dose: 30 ml Omeprazole (Omeprazole 20 Mg Capsule.Dr) 20 mg PO DAILY@0630 [facility] Last Admin: 02/14/24 05:52 Dose: 20 mg Polyethylene Glycol (Polyethylene Glycol 3350 17 Gm Powd.Pack) 17 gm PO DAILY [facility] Last Admin: 02/14/24 16:04 Dose: Not Given Senna (Sennosides 8.6 Mg Tablet) 17.2 mg PO BEDTIME [facility] Last Admin: 02/16/24 21:22 Dose: 17.2 mg Sertraline HCl (Sertraline Hcl 100 Mg Tablet) 100 mg PO DAILY [facility] Tamsulosin HCl (Tamsulosin Hcl 0.4 Mg Capsule) 0.4 mg PO BEDTIME [facility] Last Admin: 02/16/24 21:22 Dose: 0.4 mg Trazodone HCl (Trazodone Hcl 50 Mg Tablet) 50 mg PO BEDTIME MRX1 PRN PRN Reason: Insomnia Last Admin: 02/14/24 01:06 Dose: 50 mg Allergies Allergies Allergy/AdvReac Type Severity Reaction Status Date / Time No Known Allergies [NKA] Allergy Unknown NONE Verified 01/05/24 11:31 Assessment & Plan Assessment & Plan (1) Schizophrenia, catatonic: Status: Acute Code(s): F20.2 - Catatonic schizophrenia Plan Patient is a 58-year-old male with a PMH significant for HTN, [id number] type 2 diabetes, BPH, schizoaffective disorder, and depression with catatonia admitted to [facility] with hospitalist consult ECT risk stratification. ECT risk stratification Patient with history of multiple prior ECT without apparent complications No apparent acute medical complaints, vitals and EKG reassuring RCRI class 1 risk, 0 points; no additional cardiac workup indicated Based on patient's history, exam, and EKG, there are no apparent contraindications for the planned procedure Plan 1. The patient remains catatonic, we will schedule for ECT next Monday. 2. Hospitalist already cleared him up after his last fall. 3. Continue one-to-one observation. 4. Continue with Clozaril and benzodiazepines. 02/16: remains catatonic. several medications being held for unclear reasons, decision to restart or not will be deferred to primary team monday absent any compelling indication for them in the meantime. Reason for continued inpatient stay Substantial Risk for: inability to function Time Spent With Patient Time: Total time managing care of this patient today ____ minutes.
[2024-02-17 20:00] VITALS: BP 132/82; PULSE 88; RESP 15; TEMP 36.3; O2SAT 95
[2024-02-17] MEDS: cloZAPine 200 MG, cloZAPine 50 MG 250 MG PO (20:51)
[2024-02-17] MEDS: Tamsulosin HCL 0.4 MG CAPSULE PO (20:52)
[2024-02-17] MEDS: Sennosides 8.6 MG TABLET 17.2 MG PO (20:52)
[2024-02-18 06:54] LABS: Glucose, Whole Blood 114 mg/dL (60-115)
[2024-02-18 08:00] VITALS: BP 142/74; PULSE 81; RESP 16; TEMP 36.3; O2SAT 96
[2024-02-18 08:37] LABS: Creatinine Clr Calc Pharmacy 61.2; Estimated Glomerular Filt Rate 48
--- NOTE | 2024-02-18 17:42 | PC.NURSE ---
Patient spent most of the day in his room, had meals in the room, walking with observer in the hallway. Neuro checks done Q4H with no changes, provider notified and orders for Neuro checks change to Qshift, 1:1 observer discontinued and order for 5min checks ordered.
--- NOTE | 2024-02-18 18:38 | HO.PSYCHPN ---
Subjective Subjective Date of Service: 02/18/24 Reason For Visit: catatonia Interim History: able to say, OK several times to pieces of information MD was providing him (such as return of regular staff tomorrow). moving limbs periodically. tremulous. per staff, minimally interactive. staying in bed. Mental Status Exam Mental Status Exam Patient Appearance: Appropriate Patient Orientation: Person and Situation Level of Consciousness: Awake and Appropriate Patient Behavior: Guarded and Passive Mood Description: Withdrawn Affect Description: Constricted Patient Cognition Impaired: Yes Ability to Follow Directions: Good Speech Pattern: Clear Hallucinations: None Delusions: Not Present Thought Process: Distracted and Slowed Thinking Thought Content: positive for Thought Blocking Judgement: Poor Diagnostics Vital Signs (24Hr): Vital Signs - 24 hr 02/17/24 20:00 02/18/24 08:00 Temperature 97.3 F 97.4 F Pulse Rate 88 81 Respiratory Rate 15 16 Blood Pressure 132/82 142/74 H Pulse Oximetry 95 96 BMI result Body Mass Index 29.8 Labs 02/14/24 14:36 02/18/24 08:19 Labs: Laboratory Results - last 48 hr 02/17/24 02/18/24 02/18/24 06:24 06:45 08:19 Creatinine 1.48 H Estim Creat Clear Calc 61.2 Estimated GFR 48 POC Glucose 88 114 Imaging Radiology Impressions: ITS Impressions Chest X-Ray 01/07/24 13:27 IMPRESSION: Bronchial wall thickening may be infectious and/or inflammatory in etiology. Electronically signed by: Marianna Torres MD 01/07/2024 03:31 PM EDT RP Cervical Spine CT 02/13/24 14:54 IMPRESSION: Multilevel spondylosis likely representing DISH without acute fracture or trauma-related listhesis. A acute to subacute fracture of the syndesmophyte formation at C3 cannot be entire excluded. If patient's symptoms persist recommend non-IV contrast MRI cervical spine. Fleischner guidelines were followed. Electronically signed by: Mayank Irwin MD 02/13/2024 03:34 PM EST RP Head CT 02/13/24 14:54 IMPRESSION: No acute fracture, bony calvarium or acute intracranial hemorrhage. Stable brain. Electronically signed by: Mayank Irwin MD 02/13/2024 03:39 PM EST RP Hip CT 02/13/24 14:54 IMPRESSION: No acute fracture or dislocation right coxofemoral joints/right hip. Electronically signed by: Mayank Irwin MD 02/13/2024 03:48 PM EST RP Hip CT 02/13/24 14:54 IMPRESSION: No acute fracture or dislocation, left coxofemoral joint/hip. Electronically signed by: Mayank Irwin MD 02/13/2024 03:44 PM EST RP Cervical Spine MRI 02/14/24 14:41 IMPRESSION: Within the limitations of the study, 1. No definitive evidence of fracture involving the C3 syndesmophyte. 2. Multilevel cervical spondylosis without significant spinal canal stenosis or cord compression. Mild multilevel neural foraminal narrowing as described above. Electronically signed by: Villa Tello MD 02/14/2024 03:51 PM EST RP Medications Medications Current Medications Acetaminophen (Acetaminophen 325 Mg Tablet) 650 mg PO Q6H PRN PRN Reason: Headache/Pain Mild Scale (1-3) Last Admin: 02/14/24 01:05 Dose: 650 mg Al Hydroxide/Mg Hydroxide (Magnesium Hydrox/Alum Hydrox 30 Ml Oral.Susp) 30 ml PO Q6H PRN PRN Reason: Heartburn/Nausea Clonidine HCl (Clonidine Hcl 0.1 Mg Tablet) 0.05 mg PO BID [facility]; Protocol Last Admin: 02/14/24 16:03 Dose: Not Given Clozapine 200 mg/ Clozapine 50 (mg) 250 mg PO DAILY@1930 [facility] Last Admin: 02/17/24 20:51 Dose: 250 mg Docusate Sodium (Docusate Sodium 100 Mg Capsule) 100 mg PO BID [facility] Last Admin: 02/14/24 16:04 Dose: Not Given Glucose (Glucose Gel 15 Gm Gel..Gram.) 15 gm PO Q15M PRN; Protocol PRN Reason: per Hypoglycemia Standing Ord. Hydroxyzine HCl (Hydroxyzine Hcl 25 Mg Tablet) 25 mg PO Q6H PRN PRN Reason: Anxiety Last Admin: 02/14/24 01:06 Dose: 25 mg Dextrose (D10) 250 mls @ 750 mls/hr IV Q15M PRN; Protocol PRN Reason: per Hypoglycemia Standing Ord. Insulin Human Lispro (Insulin Lispro 100 Unit/Ml 3 Ml Vial) 0 unit SUBCUT DAILY [facility]; Protocol Last Admin: 02/18/24 07:39 Dose: Not Given Magnesium Hydroxide (Milk Of Magnesia 30 Ml Oral.Susp) 30 ml PO DAILY PRN PRN Reason: Constipation Last Admin: 01/11/24 12:48 Dose: 30 ml Omeprazole (Omeprazole 20 Mg Capsule.Dr) 20 mg PO DAILY@0630 [facility] Last Admin: 02/14/24 05:52 Dose: 20 mg Polyethylene Glycol (Polyethylene Glycol 3350 17 Gm Powd.Pack) 17 gm PO DAILY [facility] Last Admin: 02/14/24 16:04 Dose: Not Given Senna (Sennosides 8.6 Mg Tablet) 17.2 mg PO BEDTIME [facility] Last Admin: 02/17/24 20:52 Dose: 17.2 mg Sertraline HCl (Sertraline Hcl 100 Mg Tablet) 100 mg PO DAILY [facility] Tamsulosin HCl (Tamsulosin Hcl 0.4 Mg Capsule) 0.4 mg PO BEDTIME [facility] Last Admin: 02/17/24 20:52 Dose: 0.4 mg Trazodone HCl (Trazodone Hcl 50 Mg Tablet) 50 mg PO BEDTIME MRX1 PRN PRN Reason: Insomnia Last Admin: 02/14/24 01:06 Dose: 50 mg Allergies Allergies Allergy/AdvReac Type Severity Reaction Status Date / Time No Known Allergies [NKA] Allergy Unknown NONE Verified 01/05/24 11:31 Assessment & Plan Assessment & Plan (1) Schizophrenia, catatonic: Status: Acute Code(s): F20.2 - Catatonic schizophrenia Plan Patient is a 58-year-old male with a PMH significant for HTN, [id number] type 2 diabetes, BPH, schizoaffective disorder, and depression with catatonia admitted to [facility] psych with hospitalist consult ECT risk stratification. ECT risk stratification Patient with history of multiple prior ECT without apparent complications No apparent acute medical complaints, vitals and EKG reassuring RCRI class 1 risk, 0 points; no additional cardiac workup indicated Based on patient's history, exam, and EKG, there are no apparent contraindications for the planned procedure Plan 1. The patient remains catatonic, we will schedule for ECT next Monday. 2. Hospitalist already cleared him up after his last fall. 3. Continue one-to-one observation. 4. Continue with Clozaril and benzodiazepines. 02/16: remains catatonic. several medications being held for unclear reasons, decision to restart or not will be deferred to primary team monday absent any compelling indication for them in the meantime. 02/17: able to say, OK several times, otherwise nonverbal and as per yesterday. continue current mgmt. Reason for continued inpatient stay Substantial Risk for: inability to function Time Spent With Patient Time: Total time managing care of this patient today ____ minutes.
[2024-02-18 19:30] VITALS: BP 117/81; PULSE 81; RESP 16; TEMP 36.4; O2SAT 95
[2024-02-18] MEDS: cloZAPine 200 MG, cloZAPine 50 MG 250 MG PO (20:59)
[2024-02-18] MEDS: Sennosides 8.6 MG TABLET 17.2 MG PO (21:00)
[2024-02-18] MEDS: Tamsulosin HCL 0.4 MG CAPSULE PO (21:00)
[2024-02-18] MEDS: hydrOXYzine HCL 25 MG TABLET PO (21:04)
[2024-02-18] MEDS: traZODone HCL 50 MG TABLET PO (21:04)
[2024-02-19 07:00] LABS: Glucose, Whole Blood 111 mg/dL (60-115)
[2024-02-19 08:00] VITALS: BP 146/77; PULSE 87; RESP 17; TEMP 36.2; O2SAT 95
--- NOTE | 2024-02-19 13:04 | HO.PSYCHPN ---
Subjective Subjective Date of Service: 02/19/24 Reason For Visit: catatonia Subjective Notes: Conditional Voluntary Healthcare Proxy: Yes Interim History: The nursing staff reported the patient had been out only for food, we have not been able to contact his father. He had been skin for ECT that we could not contact his father who is the healthcare proxy to sign consents. We will try to gather more information. On interview the patient remains catatonic at times. No changes in mental status. Mental Status Exam Mental Status Exam Patient Appearance: Well Grooomed and Appropriate Patient Orientation: Person and Situation Level of Consciousness: Awake and Appropriate Patient Behavior: Passive Mood Description: Withdrawn and Blunted Affect Description: Calm Patient Cognition Impaired: Yes Ability to Follow Directions: Fair Speech Pattern: Clear Hallucinations: None Delusions: Ideas of Reference Thought Process: Distracted and Slowed Thinking Thought Content: positive for [place] and positive for Poverty of Content Judgement: Poor Diagnostics Vital Signs (24Hr): Vital Signs - 24 hr 02/18/24 19:30 02/19/24 08:00 Temperature 97.5 F 97.1 F Pulse Rate 81 87 Respiratory Rate 16 17 Blood Pressure 117/81 146/77 H Pulse Oximetry 95 95 Oxygen Delivery Method Room Air Room Air BMI result Body Mass Index 29.8 Labs 02/14/24 14:36 02/18/24 08:19 Labs: Laboratory Results - last 48 hr 02/18/24 02/18/24 02/19/24 06:45 08:19 06:40 Creatinine 1.48 H Estim Creat Clear Calc 61.2 Estimated GFR 48 POC Glucose 114 111 Imaging Radiology Impressions: ITS Impressions Chest X-Ray 01/07/24 13:27 IMPRESSION: Bronchial wall thickening may be infectious and/or inflammatory in etiology. Electronically signed by: Marianna Torres MD 01/07/2024 03:31 PM EDT RP Cervical Spine CT 02/13/24 14:54 IMPRESSION: Multilevel spondylosis likely representing DISH without acute fracture or trauma-related listhesis. A acute to subacute fracture of the syndesmophyte formation at C3 cannot be entire excluded. If patient's symptoms persist recommend non-IV contrast MRI cervical spine. Fleischner guidelines were followed. Electronically signed by: Mayank Irwin MD 02/13/2024 03:34 PM EST RP Head CT 02/13/24 14:54 IMPRESSION: No acute fracture, bony calvarium or acute intracranial hemorrhage. Stable brain. Electronically signed by: Maynak Irwin MD 02/13/2024 03:39 PM EST RP Hip CT 02/13/24 14:54 IMPRESSION: No acute fracture or dislocation right coxofemoral joints/right hip. Electronically signed by: Mayank Irwin MD 02/13/2024 03:48 PM EST RP Hip CT 02/13/24 14:54 IMPRESSION: No acute fracture or dislocation, left coxofemoral joint/hip. Electronically signed by: Mayank Irwin MD 02/13/2024 03:44 PM EST RP Cervical Spine MRI 02/14/24 14:41 IMPRESSION: Within the limitations of the study, 1. No definitive evidence of fracture involving the C3 syndesmophyte. 2. Multilevel cervical spondylosis without significant spinal canal stenosis or cord compression. Mild multilevel neural foraminal narrowing as described above. Electronically signed by: Villa Tello MD 02/14/2024 03:51 PM EST RP Medications Medications Current Medications Acetaminophen (Acetaminophen 325 Mg Tablet) 650 mg PO Q6H PRN PRN Reason: Headache/Pain Mild Scale (1-3) Last Admin: 02/14/24 01:05 Dose: 650 mg Al Hydroxide/Mg Hydroxide (Magnesium Hydrox/Alum Hydrox 30 Ml Oral.Susp) 30 ml PO Q6H PRN PRN Reason: Heartburn/Nausea Clonidine HCl (Clonidine Hcl 0.1 Mg Tablet) 0.05 mg PO BID [facility]; Protocol Last Admin: 02/14/24 16:03 Dose: Not Given Clozapine 200 mg/ Clozapine 50 (mg) 250 mg PO DAILY@1930 [facility] Last Admin: 02/18/24 20:59 Dose: 250 mg Docusate Sodium (Docusate Sodium 100 Mg Capsule) 100 mg PO BID [facility] Last Admin: 02/14/24 16:04 Dose: Not Given Glucose (Glucose Gel 15 Gm Gel..Gram.) 15 gm PO Q15M PRN; Protocol PRN Reason: per Hypoglycemia Standing Ord. Hydroxyzine HCl (Hydroxyzine Hcl 25 Mg Tablet) 25 mg PO Q6H PRN PRN Reason: Anxiety Last Admin: 02/18/24 21:04 Dose: 25 mg Dextrose (D10) 250 mls @ 750 mls/hr IV Q15M PRN; Protocol PRN Reason: per Hypoglycemia Standing Ord. Insulin Human Lispro (Insulin Lispro 100 Unit/Ml 3 Ml Vial) 0 unit SUBCUT DAILY [facility]; Protocol Last Admin: 02/19/24 09:43 Dose: Not Given Magnesium Hydroxide (Milk Of Magnesia 30 Ml Oral.Susp) 30 ml PO DAILY PRN PRN Reason: Constipation Last Admin: 01/11/24 12:48 Dose: 30 ml Omeprazole (Omeprazole 20 Mg Capsule.Dr) 20 mg PO DAILY@0630 [facility] Last Admin: 02/14/24 05:52 Dose: 20 mg Polyethylene Glycol (Polyethylene Glycol 3350 17 Gm Powd.Pack) 17 gm PO DAILY [facility] Last Admin: 02/14/24 16:04 Dose: Not Given Senna (Sennosides 8.6 Mg Tablet) 17.2 mg PO BEDTIME [facility] Last Admin: 02/18/24 21:00 Dose: 17.2 mg Sertraline HCl (Sertraline Hcl 100 Mg Tablet) 100 mg PO DAILY [facility] Tamsulosin HCl (Tamsulosin Hcl 0.4 Mg Capsule) 0.4 mg PO BEDTIME [facility] Last Admin: 02/18/24 21:00 Dose: 0.4 mg Trazodone HCl (Trazodone Hcl 50 Mg Tablet) 50 mg PO BEDTIME MRX1 PRN PRN Reason: Insomnia Last Admin: 02/18/24 21:04 Dose: 50 mg Allergies Allergies Allergy/AdvReac Type Severity Reaction Status Date / Time No Known Allergies [NKA] Allergy Unknown NONE Verified 01/05/24 11:31 Assessment & Plan Assessment & Plan (1) Schizophrenia, catatonic: Status: Acute Code(s): F20.2 - Catatonic schizophrenia Plan Patient is a 58-year-old male with a PMH significant for HTN, [id number] type 2 diabetes, BPH, schizoaffective disorder, and depression with catatonia admitted to [facility] with hospitalist consult ECT risk stratification. ECT risk stratification Patient with history of multiple prior ECT without apparent complications No apparent acute medical complaints, vitals and EKG reassuring RCRI class 1 risk, 0 points; no additional cardiac workup indicated Based on patient's history, exam, and EKG, there are no apparent contraindications for the planned procedure Plan 1. The patient remains catatonic, we will schedule for ECT next Monday. 2. Hospitalist already cleared him up after his last fall. 3. Continue one-to-one observation. 4. Continue with Clozaril and benzodiazepines. 5. ECT to be scheduled, we will need to contact his father for constant for the treatment. Reason for continued inpatient stay Substantial Risk for: inability to function, rapid decompensation and med/psych decompensation Time Spent With Patient Time: Total time managing care of this patient today __20__ minutes.
--- NOTE | 2024-02-19 18:01 | PC.NURSE ---
Benjamin Tenorio appeared restless and tremulous this evening,staff was assigned to observe him, Dr. George notified to have him placed on a 1:1 at 1744.
[2024-02-19 20:00] VITALS: BP 159/84; PULSE 100; RESP 18; TEMP 36.5; O2SAT 96
[2024-02-19] MEDS: Tamsulosin HCL 0.4 MG CAPSULE PO (21:51)
[2024-02-19] MEDS: cloZAPine 200 MG, cloZAPine 50 MG 250 MG PO (21:54)
[2024-02-19] MEDS: LORazepam 1 MG TABLET PO ×2 (21:55→22:33)
[2024-02-19] MEDS: Sennosides 8.6 MG TABLET 17.2 MG PO (21:55)
[2024-02-20 06:37] LABS: Glucose, Whole Blood 117 mg/dL (60-115)
[2024-02-20 08:00] VITALS: BP 150/81; PULSE 82; RESP 18; TEMP 36.1; O2SAT 96
--- NOTE | 2024-02-20 08:24 | P.PNPSI_ITS ---
Subjective Subjective Date of Service: 02/20/24 Reason For Visit: catatonia Subjective Notes: Conditional Voluntary Healthcare Proxy: Yes Interim History: The nursing staff reported the patient had been catatonic nonverbal took medications at night he had a loose stool last night and needed to be washed he cooperate with that. It seems that Valium is working but it does not last long. On interview the patient remains catatonic. We are going to try to consent for ECT, so far we could not contact his father who is the healthcare proxy. Mental Status Exam Mental Status Exam Patient Appearance: Appropriate Patient Orientation: Person and Situation Level of Consciousness: Awake Patient Behavior: Guarded Mood Description: Calm Affect Description: Blunted Patient Cognition Impaired: Yes Ability to Follow Directions: Poor Speech Pattern: Clear Hallucinations: None Delusions: Paranoid Ideation and Ideas of Reference Thought Process: Distracted and Slowed Thinking Thought Content: positive for Hope and positive for Poverty of Content Judgement: Poor Diagnostics Vital Signs (24Hr): Vital Signs - 24 hr 02/19/24 20:00 02/20/24 08:00 Temperature 97.7 F 96.9 F Pulse Rate 100 82 Respiratory Rate 18 18 Blood Pressure 159/84 H 150/81 H Pulse Oximetry 96 96 Oxygen Delivery Method Room Air Room Air BMI result Body Mass Index 29.8 Labs 02/14/24 14:36 02/18/24 08:19 Labs: Laboratory Results - last 48 hr 02/18/24 02/19/24 02/20/24 08:19 06:40 06:33 Creatinine 1.48 H Estim Creat Clear Calc 61.2 Estimated GFR 48 POC Glucose 111 117 H Imaging Radiology Impressions: ITS Impressions Chest X-Ray 01/07/24 13:27 IMPRESSION: Bronchial wall thickening may be infectious and/or inflammatory in etiology. Electronically signed by: Marianna Torres MD 01/07/2024 03:31 PM EDT RP Cervical Spine CT 02/13/24 14:54 IMPRESSION: Multilevel spondylosis likely representing DISH without acute fracture or trauma-related listhesis. A acute to subacute fracture of the syndesmophyte formation at C3 cannot be entire excluded. If patient's symptoms persist recommend non-IV contrast MRI cervical spine. Fleischner guidelines were followed. Electronically signed by: Mayank Irwin MD 02/13/2024 03:34 PM EST RP Head CT 02/13/24 14:54 IMPRESSION: No acute fracture, bony calvarium or acute intracranial hemorrhage. Stable brain. Electronically signed by: Mayank Irwin MD 02/13/2024 03:39 PM EST RP Hip CT 02/13/24 14:54 IMPRESSION: No acute fracture or dislocation right coxofemoral joints/right hip. Electronically signed by: Mayank Irwin MD 02/13/2024 03:48 PM EST RP Hip CT 02/13/24 14:54 IMPRESSION: No acute fracture or dislocation, left coxofemoral joint/hip. Electronically signed by: Mayank Irwin MD 02/13/2024 03:44 PM EST RP Cervical Spine MRI 02/14/24 14:41 IMPRESSION: Within the limitations of the study, 1. No definitive evidence of fracture involving the C3 syndesmophyte. 2. Multilevel cervical spondylosis without significant spinal canal stenosis or cord compression. Mild multilevel neural foraminal narrowing as described above. Electronically signed by: Villa Tello MD 02/14/2024 03:51 PM EST RP Medications Medications Current Medications Acetaminophen (Acetaminophen 325 Mg Tablet) 650 mg PO Q6H PRN PRN Reason: Headache/Pain Mild Scale (1-3) Last Admin: 02/14/24 01:05 Dose: 650 mg Al Hydroxide/Mg Hydroxide (Magnesium Hydrox/Alum Hydrox 30 Ml Oral.Susp) 30 ml PO Q6H PRN PRN Reason: Heartburn/Nausea Clonidine HCl (Clonidine Hcl 0.1 Mg Tablet) 0.05 mg PO BID [facility]; Protocol Last Admin: 02/14/24 16:03 Dose: Not Given Clozapine 200 mg/ Clozapine 50 (mg) 250 mg PO DAILY@1930 [facility] Last Admin: 02/19/24 21:54 Dose: 250 mg Docusate Sodium (Docusate Sodium 100 Mg Capsule) 100 mg PO BID [facility] Last Admin: 02/14/24 16:04 Dose: Not Given Glucose (Glucose Gel 15 Gm Gel..Gram.) 15 gm PO Q15M PRN; Protocol PRN Reason: per Hypoglycemia Standing Ord. Hydroxyzine HCl (Hydroxyzine Hcl 25 Mg Tablet) 25 mg PO Q6H PRN PRN Reason: Anxiety Last Admin: 02/18/24 21:04 Dose: 25 mg Dextrose (D10) 250 mls @ 750 mls/hr IV Q15M PRN; Protocol PRN Reason: per Hypoglycemia Standing Ord. Insulin Human Lispro (Insulin Lispro 100 Unit/Ml 3 Ml Vial) 0 unit SUBCUT DAILY [facility]; Protocol Last Admin: 02/19/24 09:43 Dose: Not Given Lorazepam (Lorazepam 1 Mg Tablet) 1 mg PO TID KRISTIN Last Admin: 02/19/24 22:33 Dose: 1 mg Magnesium Hydroxide (Milk Of Magnesia 30 Ml Oral.Susp) 30 ml PO DAILY PRN PRN Reason: Constipation Last Admin: 01/11/24 12:48 Dose: 30 ml Omeprazole (Omeprazole 20 Mg Capsule.Dr) 20 mg PO DAILY@0630 [facility] Last Admin: 02/14/24 05:52 Dose: 20 mg Polyethylene Glycol (Polyethylene Glycol 3350 17 Gm Powd.Pack) 17 gm PO DAILY [facility] Last Admin: 02/14/24 16:04 Dose: Not Given Senna (Sennosides 8.6 Mg Tablet) 17.2 mg PO BEDTIME [facility] Last Admin: 02/19/24 21:55 Dose: 17.2 mg Sertraline HCl (Sertraline Hcl 100 Mg Tablet) 100 mg PO DAILY [facility] Tamsulosin HCl (Tamsulosin Hcl 0.4 Mg Capsule) 0.4 mg PO BEDTIME [facility] Last Admin: 02/19/24 21:51 Dose: 0.4 mg Trazodone HCl (Trazodone Hcl 50 Mg Tablet) 50 mg PO BEDTIME MRX1 PRN PRN Reason: Insomnia Last Admin: 02/18/24 21:04 Dose: 50 mg Allergies Allergies Allergy/AdvReac Type Severity Reaction Status Date / Time No Known Allergies [NKA] Allergy Unknown NONE Verified 01/05/24 11:31 Assessment & Plan Assessment & Plan (1) Schizophrenia, catatonic: Status: Acute Code(s): F20.2 - Catatonic schizophrenia Plan Patient is a 58-year-old male with a PMH significant for HTN, [id number] type 2 diabetes, BPH, schizoaffective disorder, and depression with catatonia admitted to [facility] with hospitalist consult ECT risk stratification. ECT risk stratification Patient with history of multiple prior ECT without apparent complications No apparent acute medical complaints, vitals and EKG reassuring RCRI class 1 risk, 0 points; no additional cardiac workup indicated Based on patient's history, exam, and EKG, there are no apparent contraindications for the planned procedure Plan 1. The patient remains catatonic, we will schedule for ECT next Monday. 2. Hospitalist already cleared him up after his last fall. 3. Continue one-to-one observation. 4. Continue with Clozaril and benzodiazepines. 5. ECT to be scheduled, we will need to contact his father for constant for the treatment. 6. Ativan was increased up to 2 mg p.o. t.i.d. on February 19 Reason for continued inpatient stay Substantial Risk for: inability to function, rapid decompensation and med/psych decompensation Time Spent With Patient Time: Total time managing care of this patient today __20__ minutes.
[2024-02-20] MEDS: LORazepam 1 MG TABLET 2 MG PO ×3 (08:50→20:05)
[2024-02-20 20:00] VITALS: BP 129/77; PULSE 82; RESP 18; TEMP 36.5; O2SAT 96
[2024-02-20] MEDS: cloZAPine 200 MG, cloZAPine 50 MG 250 MG PO (20:05)
[2024-02-20] MEDS: hydrOXYzine HCL 25 MG TABLET PO (20:05)
[2024-02-20] MEDS: Tamsulosin HCL 0.4 MG CAPSULE PO (20:05)
[2024-02-20] MEDS: traZODone HCL 50 MG TABLET PO (20:05)
[2024-02-20] MEDS: Sennosides 8.6 MG TABLET 17.2 MG PO (20:05)
[2024-02-21] VITALS (9 sets, daily range): BP systolic 118–160; BP diastolic 70–117; PULSE 76–98; RESP 16–21; TEMP 36.2–36.7; O2SAT 94–100
[2024-02-21 06:52] LABS: Glucose, Whole Blood 134 mg/dL (60-115)
[2024-02-21] MEDS: Lactated Ringers 1,000 ML 50 ML IVCONT (06:58)
--- NOTE | 2024-02-21 07:03 | P.CONAN_ITS ---
[facility] Active Problems Active Problems: All Active Problems Schizophrenia, catatonic (Acute) Schizoaffective disorder (Acute) Fall (Acute) Pre-op evaluation (Acute) Catatonia (Acute) Nocturnal hypoxia (Acute) Sleep apnea (Acute) Schizoaffective disorder, depressive type (Acute) Benign prostate hyperplasia (Acute) Essential hypertension (Acute) Right hip pain (Acute) Essential (primary) hypertension (Acute) Diabetes mellitus (Acute) Past Medical History Medical History (Updated 02/15/24 @ 09:00 by Dahiana Haney NP) Schizophrenia, catatonic Mild sleep apnea Nocturnal hypoxia Routine medical exam Joint inflammation of right hand and wrist Status post fall Adult general medical exam Screening for colon cancer Screening for prostate cancer Cough BPH (benign prostatic hyperplasia) Essential (primary) hypertension Diabetes mellitus Family History Family History Mother Cancer Father Kidney agenesis Family history of problems with anesthesia: No Surgical History Surgical History History of colonoscopy (~06/15/21) History of tooth extraction History of root canal procedure History of Problems with Anesthesia: No Social History Social History Household Members: None Housing: Apartment Do you presently have visiting nurse or other home services: Yes Unable to assess alcohol history related to: Unable to respond Alcohol intake: former Comment: 1:1 Patient Tobacco Use Status: Never used Tobacco e-Cigarette/Vaping Use: Never Used Second Hand Smoke Exposure: No service: No Current occupational status: employed Sexual orientation: Straight/Heterosexual Cognitive needs: No Hearing needs: No Vision needs: No Meds Allergies Allergy/AdvReac Type Severity Reaction Status Date / Time No Known Allergies [NKA] Allergy Unknown NONE Verified 01/05/24 11:31 Active Medications: Current Medications Acetaminophen (Acetaminophen 325 Mg Tablet) 650 mg PO Q6H PRN PRN Reason: Headache/Pain Mild Scale (1-3) Last Admin: 02/14/24 01:05 Dose: 650 mg Al Hydroxide/Mg Hydroxide (Magnesium Hydrox/Alum Hydrox 30 Ml Oral.Susp) 30 ml PO Q6H PRN PRN Reason: Heartburn/Nausea Clonidine HCl (Clonidine Hcl 0.1 Mg Tablet) 0.05 mg PO BID KRISTIN; Protocol Last Admin: 02/14/24 16:03 Dose: Not Given Clozapine 200 mg/ Clozapine 50 (mg) 250 mg PO DAILY@1930 [facility] Last Admin: 02/20/24 20:05 Dose: 250 mg Docusate Sodium (Docusate Sodium 100 Mg Capsule) 100 mg PO BID [facility] Last Admin: 02/14/24 16:04 Dose: Not Given Glucose (Glucose Gel 15 Gm Gel..Gram.) 15 gm PO Q15M PRN; Protocol PRN Reason: per Hypoglycemia Standing Ord. Hydroxyzine HCl (Hydroxyzine Hcl 25 Mg Tablet) 25 mg PO Q6H PRN PRN Reason: Anxiety Last Admin: 02/20/24 20:05 Dose: 25 mg Dextrose (D10) 250 mls @ 750 mls/hr IV Q15M PRN; Protocol PRN Reason: per Hypoglycemia Standing Ord. Lactated Ringer's (Lr) 1,000 mls @ 50 mls/hr IVCONT .Q20H [facility] Last Admin: 02/21/24 06:58 Dose: 50 mls/hr Insulin Human Lispro (Insulin Lispro 100 Unit/Ml 3 Ml Vial) 0 unit SUBCUT DAILY [facility]; Protocol Last Admin: 02/20/24 08:44 Dose: Not Given Lorazepam (Lorazepam 1 Mg Tablet) 2 mg PO TID [facility] Last Admin: 02/20/24 20:05 Dose: 2 mg Magnesium Hydroxide (Milk Of Magnesia 30 Ml Oral.Susp) 30 ml PO DAILY PRN PRN Reason: Constipation Last Admin: 01/11/24 12:48 Dose: 30 ml Omeprazole (Omeprazole 20 Mg Capsule.Dr) 20 mg PO DAILY@0630 [facility] Last Admin: 02/14/24 05:52 Dose: 20 mg Polyethylene Glycol (Polyethylene Glycol 3350 17 Gm Powd.Pack) 17 gm PO DAILY [facility] Last Admin: 02/14/24 16:04 Dose: Not Given Senna (Sennosides 8.6 Mg Tablet) 17.2 mg PO BEDTIME [facility] Last Admin: 02/20/24 20:05 Dose: 17.2 mg Sertraline HCl (Sertraline Hcl 100 Mg Tablet) 100 mg PO DAILY [facility] Tamsulosin HCl (Tamsulosin Hcl 0.4 Mg Capsule) 0.4 mg PO BEDTIME [facility] Last Admin: 02/20/24 20:05 Dose: 0.4 mg Trazodone HCl (Trazodone Hcl 50 Mg Tablet) 50 mg PO BEDTIME MRX1 PRN PRN Reason: Insomnia Last Admin: 02/20/24 20:05 Dose: 50 mg Home Medications ?Medication ?Instructions ?Recorded ?Confirmed ?Last Taken ?Type aripiprazole 5 mg tablet 5 mg PO BEDTIME 01/05/24 01/05/24 01/03/24 History lithium carbonate 300 mg capsule 300 mg PO BID 01/05/24 01/05/24 01/05/24 History omeprazole 20 mg capsule,delayed 20 mg PO DAILY@0630 01/05/24 01/05/24 01/05/24 History release polyethylene glycol 3350 17 17 g PO DAILY 01/05/24 01/05/24 01/05/24 History gram/dose oral powder (Miralax) sennosides 8.6 mg tablet (senna) 17.2 mg PO BEDTIME 01/05/24 01/05/24 01/05/24 History tamsulosin 0.4 mg capsule 0.4 mg PO BEDTIME 01/05/24 01/05/24 01/03/24 History Exam Height,Weight and Vital Signs: Height 5 ft 10 in Weight 94.347 kg Last Vital Signs Temp 97.3 F 02/21/24 06:46 Pulse 92 02/21/24 06:46 Resp 16 02/21/24 06:46 BP 138/90 H 02/21/24 06:46 Pulse Ox 95 02/21/24 06:46 O2 Del Method Room Air 02/21/24 06:46 Pertinent Lab Results Pertinent Lab Results: Laboratory Tests 01/05/24 01/05/24 01/05/24 11:49 15:51 18:36 WBC 8.9 RBC 4.82 Hgb 13.9 L Hct 42.6 MCV 88.4 MCH 28.8 MCHC 32.6 RDW 13.2 Plt Count 169 MPV 11.1 Immature Gran % (Auto) 0.6 H Neut % (Auto) 79.4 H Lymph % (Auto) 13.1 L [place] % (Auto) 6.8 Eos % (Auto) 0.0 Baso % (Auto) 0.1 Lymph # (Auto) 1.2 [place] # (Auto) 0.6 Eos # (Auto) 0.0 Baso # (Auto) 0.0 Abs Immat Gran (auto) 0.05 H Absolute Neuts (auto) 7.1 Absolute Nucleated RBC 0.000 Nucleated RBC % (auto) 0.0 Sodium 141 Potassium 4.6 Chloride 106 Carbon Dioxide 27 Anion Gap 13 BUN 23 H Creatinine 1.42 H Estim Creat Clear Calc 64.4 Estimated GFR 51 POC Glucose 90 Random Glucose 82 Fasting Glucose Estimat Average Glucose Hemoglobin A1c % Calcium 9.2 Total Bilirubin 0.6 AST 13 ALT 9 Alkaline Phosphatase 64 Ammonia Total Protein 7.0 Albumin 4.1 TSH Salicylates < 5.0 L Acetaminophen < 3 Clozapine [address]cl[address] [place] 1.19 Ethyl Alcohol < 10 COVID-19 ([facility]) Negative COVID-19 Clin Com See Note 01/07/24 01/12/24 01/14/24 07:36 08:25 08:35 WBC RBC Hgb Hct MCV MCH MCHC RDW Plt Count MPV Immature Gran % (Auto) Neut % (Auto) Lymph % (Auto) [place] % (Auto) Eos % (Auto) Baso % (Auto) Lymph # (Auto) [place] # (Auto) Eos # (Auto) Baso # (Auto) Abs Immat Gran (auto) Absolute Neuts (auto) 4.9 Absolute Nucleated RBC Nucleated RBC % (auto) Sodium 142 Potassium 4.4 Chloride 106 Carbon Dioxide 25 Anion Gap 15 BUN 23 H Creatinine 1.39 1.55 H Estim Creat Clear Calc 65.6 58.8 Estimated GFR 52 46 POC Glucose Random Glucose 132 H Fasting Glucose Estimat Average Glucose Hemoglobin A1c % Calcium 9.2 Total Bilirubin AST ALT Alkaline Phosphatase Ammonia Total Protein Albumin TSH Salicylates Acetaminophen Clozapine Norclozapine [place] 0.90 Ethyl Alcohol COVID-19 ([facility]) COVID-19 [employer] [employer] 01/16/24 01/17/24 01/19/24 10:15 08:14 08:50 WBC RBC Hgb Hct MCV MCH MCHC RDW Plt Count MPV Immature Gran % (Auto) Neut % (Auto) Lymph % (Auto) [place] % (Auto) Eos % (Auto) Baso % (Auto) Lymph # (Auto) [place] # (Auto) Eos # (Auto) Baso # (Auto) Abs Immat Gran (auto) Absolute Neuts (auto) 5.3 Absolute Nucleated RBC Nucleated RBC % (auto) Sodium 144 Potassium 4.3 Chloride 109 H Carbon Dioxide 29 Anion Gap 10 L BUN 24 H Creatinine 1.37 Estim Creat Clear Calc 66.5 Estimated GFR 53 POC Glucose 88 Random Glucose Fasting Glucose 90 Estimat Average Glucose 103 Hemoglobin A1c % 5.2 Calcium 9.4 Total Bilirubin 0.4 AST 15 ALT 12 Alkaline Phosphatase 66 Ammonia Total Protein 6.6 Albumin 3.9 TSH 0.78 Salicylates Acetaminophen Clozapine [address] Norcl[address]apine [address] [place] 0.65 0.89 Ethyl Alcohol COVID-19 ([facility]) COVID-19 [employer] 01/21/24 01/21/24 01/22/24 07:36 12:20 16:09 WBC RBC Hgb Hct MCV MCH MCHC RDW Plt Count MPV Immature Gran % (Auto) Neut % (Auto) Lymph % (Auto) [place] % (Auto) Eos % (Auto) Baso % (Auto) Lymph # (Auto) [place] # (Auto) Eos # (Auto) Baso # (Auto) Abs Immat Gran (auto) Absolute Neuts (auto) Absolute Nucleated RBC Nucleated RBC % (auto) Sodium 141 141 Potassium 3.8 3.8 Chloride 106 107 Carbon Dioxide 26 28 Anion Gap 13 10 L BUN 31 H 29 H Creatinine 1.64 H 1.76 H 1.67 H Estim Creat Clear Calc 55.4 51.6 54.4 Estimated GFR 43 40 42 POC Glucose Random Glucose 173 H 96 Fasting Glucose Estimat Average Glucose Hemoglobin A1c % Calcium 9.3 9.0 Total Bilirubin 0.5 0.4 AST 15 18 ALT 15 10 Alkaline Phosphatase 65 55 Ammonia Total Protein 6.7 6.3 L Albumin 4.0 3.8 TSH Salicylates Acetaminophen Clozapine Norclozapine [place] 1.20 Ethyl Alcohol COVID-19 ([facility]) COVID-[employer] 01/23/24 01/24/24 01/24/24 08:05 07:46 16:29 WBC RBC Hgb Hct MCV MCH MCHC RDW Plt Count MPV Immature Gran % (Auto) Neut % (Auto) Lymph % (Auto) [place] % (Auto) Eos % (Auto) Baso % (Auto) Lymph # (Auto) [place] # (Auto) Eos # (Auto) Baso # (Auto) Abs Immat Gran (auto) Absolute Neuts (auto) Absolute Nucleated RBC Nucleated RBC % (auto) Sodium 144 144 Potassium 4.0 4.1 Chloride 107 110 H Carbon Dioxide 29 28 Anion Gap 12 10 L BUN 25 H 22 H Creatinine 1.29 1.37 Estim Creat Clear Calc 70.4 66.3 Estimated GFR 57 53 POC Glucose 106 Random Glucose 91 101 Fasting Glucose Estimat Average Glucose Hemoglobin A1c % Calcium 8.9 8.9 Total Bilirubin AST ALT Alkaline Phosphatase Ammonia Total Protein Albumin TSH Salicylates Acetaminophen Clozapine Norclozapine [place] Ethyl Alcohol COVID-19 ([facility]) COVID-19 [facility] [employer] 01/24/24 01/25/24 01/25/24 19:54 06:36 12:42 WBC RBC Hgb Hct MCV MCH MCHC RDW Plt Count MPV Immature Gran % (Auto) Neut % (Auto) Lymph % (Auto) [place] % (Auto) Eos % (Auto) Baso % (Auto) Lymph # (Auto) [place] # (Auto) Eos # (Auto) Baso # (Auto) Abs Immat Gran (auto) Absolute Neuts (auto) Absolute Nucleated RBC Nucleated RBC % (auto) Sodium Potassium Chloride Carbon Dioxide Anion Gap BUN Creatinine Estim Creat Clear Calc Estimated GFR POC Glucose 105 110 159 H Random Glucose Fasting Glucose Estimat Average Glucose Hemoglobin A1c % Calcium Total Bilirubin AST ALT Alkaline Phosphatase Ammonia Total Protein Albumin TSH Salicylates Acetaminophen Clozapine Norclozapine [place] Ethyl Alcohol COVID-19 ([facility]) COVID-19 [employer] 01/25/24 01/25/24 01/26/24 16:48 21:13 06:33 WBC RBC Hgb Hct MCV MCH MCHC RDW Plt Count MPV Immature Gran % (Auto) Neut % (Auto) Lymph % (Auto) [place] % (Auto) Eos % (Auto) Baso % (Auto) Lymph # (Auto) [place] # (Auto) Eos # (Auto) Baso # (Auto) Abs Immat Gran (auto) Absolute Neuts (auto) Absolute Nucleated RBC Nucleated RBC % (auto) Sodium Potassium Chloride Carbon Dioxide Anion Gap BUN Creatinine Estim Creat Clear Calc Estimated GFR POC Glucose 84 118 H 101 Random Glucose Fasting Glucose Estimat Average Glucose Hemoglobin A1c % Calcium Total Bilirubin AST ALT Alkaline Phosphatase Ammonia Total Protein Albumin TSH Salicylates Acetaminophen Clozapine Norclozapine [place] Ethyl Alcohol COVID-19 ([facility]) COVID-19 [facility] 01/26/24 01/26/24 01/26/24 07:56 11:32 16:33 WBC RBC Hgb Hct MCV MCH MCHC RDW Plt Count MPV Immature Gran % (Auto) Neut % (Auto) Lymph % (Auto) [place] % (Auto) Eos % (Auto) Baso % (Auto) Lymph # (Auto) [place] # (Auto) Eos # (Auto) Baso # (Auto) Abs Immat Gran (auto) Absolute Neuts (auto) 3.4 Absolute Nucleated RBC Nucleated RBC % (auto) Sodium Potassium Chloride Carbon Dioxide Anion Gap BUN Creatinine Estim Creat Clear Calc Estimated GFR POC Glucose 97 83 Random Glucose Fasting Glucose Estimat Average Glucose Hemoglobin A1c % Calcium Total Bilirubin AST ALT Alkaline Phosphatase Ammonia Total Protein Albumin TSH Salicylates Acetaminophen Clozapine Norclozapine [place] Ethyl Alcohol COVID-19 ([facility]) COVID-[employer] 01/26/24 01/27/24 01/27/24 21:18 06:50 11:13 WBC RBC Hgb Hct MCV MCH MCHC RDW Plt Count MPV Immature Gran % (Auto) Neut % (Auto) Lymph % (Auto) [place] % (Auto) Eos % (Auto) Baso % (Auto) Lymph # (Auto) [place] # (Auto) Eos # (Auto) Baso # (Auto) Abs Immat Gran (auto) Absolute Neuts (auto) Absolute Nucleated RBC Nucleated RBC % (auto) Sodium Potassium Chloride Carbon Dioxide Anion Gap BUN Creatinine Estim Creat Clear Calc Estimated GFR POC Glucose 101 108 99 Random Glucose Fasting Glucose Estimat Average Glucose Hemoglobin A1c % Calcium Total Bilirubin AST ALT Alkaline Phosphatase Ammonia Total Protein Albumin TSH Salicylates Acetaminophen Clozapine Norclozapine [place] Ethyl Alcohol COVID-19 ([facility]) [employer] 01/27/24 01/27/24 01/28/24 16:36 21:31 06:25 WBC RBC Hgb Hct MCV MCH MCHC RDW Plt Count MPV Immature Gran % (Auto) Neut % (Auto) Lymph % (Auto) [place] % (Auto) Eos % (Auto) Baso % (Auto) Lymph # (Auto) [place] # (Auto) Eos # (Auto) Baso # (Auto) Abs Immat Gran (auto) Absolute Neuts (auto) Absolute Nucleated RBC Nucleated RBC % (auto) Sodium Potassium Chloride Carbon Dioxide Anion Gap BUN Creatinine Estim Creat Clear Calc Estimated GFR POC Glucose 80 99 111 Random Glucose Fasting Glucose Estimat Average Glucose Hemoglobin A1c % Calcium Total Bilirubin AST ALT Alkaline Phosphatase Ammonia Total Protein Albumin TSH Salicylates Acetaminophen Clozapine Norclozapine [place] Ethyl Alcohol COVID-19 ([facility]) COVID-[employer] 01/28/24 01/28/24 01/28/24 07:21 11:32 19:53 WBC RBC Hgb Hct MCV MCH MCHC RDW Plt Count MPV Immature Gran % (Auto) Neut % (Auto) Lymph % (Auto) [place] % (Auto) Eos % (Auto) Baso % (Auto) Lymph # (Auto) [place] # (Auto) Eos # (Auto) Baso # (Auto) Abs Immat Gran (auto) Absolute Neuts (auto) Absolute Nucleated RBC Nucleated RBC % (auto) Sodium Potassium Chloride Carbon Dioxide Anion Gap BUN Creatinine 1.48 H Estim Creat Clear Calc 61.8 Estimated GFR 48 POC Glucose 93 123 H Random Glucose Fasting Glucose Estimat Average Glucose Hemoglobin A1c % Calcium Total Bilirubin AST ALT Alkaline Phosphatase Ammonia Total Protein Albumin TSH Salicylates Acetaminophen Clozapine Norclozapine [place] Ethyl Alcohol COVID-19 ([facility]) COVID-19 [employer] 01/29/24 01/29/24 01/30/24 06:32 19:56 06:34 WBC RBC Hgb Hct MCV MCH MCHC RDW Plt Count MPV Immature Gran % (Auto) Neut % (Auto) Lymph % (Auto) [place] % (Auto) Eos % (Auto) Baso % (Auto) Lymph # (Auto) [place] # (Auto) Eos # (Auto) Baso # (Auto) Abs Immat Gran (auto) Absolute Neuts (auto) Absolute Nucleated RBC Nucleated RBC % (auto) Sodium Potassium Chloride Carbon Dioxide Anion Gap BUN Creatinine Estim Creat Clear Calc Estimated GFR POC Glucose 109 148 H 109 Random Glucose Fasting Glucose Estimat Average Glucose Hemoglobin A1c % Calcium Total Bilirubin AST ALT Alkaline Phosphatase Ammonia Total Protein Albumin TSH Salicylates Acetaminophen Clozapine Norclozapine [place] Ethyl Alcohol COVID-19 ([facility]) COVID-19 [employer] 01/31/24 02/01/24 02/02/24 06:35 06:09 06:19 WBC RBC Hgb Hct MCV MCH MCHC RDW Plt Count MPV Immature Gran % (Auto) Neut % (Auto) Lymph % (Auto) [place] % (Auto) Eos % (Auto) Baso % (Auto) Lymph # (Auto) [place] # (Auto) Eos # (Auto) Baso # (Auto) Abs Immat Gran (auto) Absolute Neuts (auto) Absolute Nucleated RBC Nucleated RBC % (auto) Sodium Potassium Chloride Carbon Dioxide Anion Gap BUN Creatinine Estim Creat Clear Calc Estimated GFR POC Glucose 98 101 102 Random Glucose Fasting Glucose Estimat Average Glucose Hemoglobin A1c % Calcium Total Bilirubin AST ALT Alkaline Phosphatase Ammonia Total Protein Albumin TSH Salicylates Acetaminophen Clozapine Norclozapine [place] Ethyl Alcohol COVID-19 ([facility]) COVID-19 [employer] 02/02/24 02/03/24 02/04/24 08:25 06:37 06:46 WBC RBC Hgb Hct MCV MCH MCHC RDW Plt Count MPV Immature Gran % (Auto) Neut % (Auto) Lymph % (Auto) [place] % (Auto) Eos % (Auto) Baso % (Auto) Lymph # (Auto) [place] # (Auto) Eos # (Auto) Baso # (Auto) Abs Immat Gran (auto) Absolute Neuts (auto) 3.3 Absolute Nucleated RBC Nucleated RBC % (auto) Sodium Potassium Chloride Carbon Dioxide Anion Gap BUN Creatinine Estim Creat Clear Calc Estimated GFR POC Glucose 95 98 Random Glucose Fasting Glucose Estimat Average Glucose Hemoglobin A1c % Calcium Total Bilirubin AST ALT Alkaline Phosphatase Ammonia Total Protein Albumin TSH Salicylates Acetaminophen Clozapine Norclozapine [place] Ethyl Alcohol COVID-19 ([facility]) COVID-19 [employer] 02/04/24 02/05/24 02/06/24 07:17 06:37 06:46 WBC RBC Hgb Hct MCV MCH MCHC RDW Plt Count MPV Immature Gran % (Auto) Neut % (Auto) Lymph % (Auto) [place] % (Auto) Eos % (Auto) Baso % (Auto) Lymph # (Auto) [place] # (Auto) Eos # (Auto) Baso # (Auto) Abs Immat Gran (auto) Absolute Neuts (auto) Absolute Nucleated RBC Nucleated RBC % (auto) Sodium Potassium Chloride Carbon Dioxide Anion Gap BUN Creatinine 1.32 Estim Creat Clear Calc 69.3 Estimated GFR 55 POC Glucose 94 103 Random Glucose Fasting Glucose Estimat Average Glucose Hemoglobin A1c % Calcium Total Bilirubin AST ALT Alkaline Phosphatase Ammonia Total Protein Albumin TSH Salicylates Acetaminophen Clozapine Norclozapine [place] Ethyl Alcohol COVID-19 ([facility]) COVID-19 [facility] [facility] 02/07/24 02/08/24 02/09/24 06:57 06:32 06:40 WBC RBC Hgb Hct MCV MCH MCHC RDW Plt Count MPV Immature Gran % (Auto) Neut % (Auto) Lymph % (Auto) [place] % (Auto) Eos % (Auto) Baso % (Auto) Lymph # (Auto) [place] # (Auto) Eos # (Auto) Baso # (Auto) Abs Immat Gran (auto) Absolute Neuts (auto) Absolute Nucleated RBC Nucleated RBC % (auto) Sodium Potassium Chloride Carbon Dioxide Anion Gap BUN Creatinine Estim Creat Clear Calc Estimated GFR POC Glucose 118 H 117 H 121 H Random Glucose Fasting Glucose Estimat Average Glucose Hemoglobin A1c % Calcium Total Bilirubin AST ALT Alkaline Phosphatase Ammonia Total Protein Albumin TSH Salicylates Acetaminophen Clozapine Norclozapine [place] Ethyl Alcohol COVID-19 ([facility]) COVID-19 [employer] 02/09/24 02/10/24 02/11/24 07:57 06:31 06:50 WBC RBC Hgb Hct MCV MCH MCHC RDW Plt Count MPV Immature Gran % (Auto) Neut % (Auto) Lymph % (Auto) [place] % (Auto) Eos % (Auto) Baso % (Auto) Lymph # (Auto) [place] # (Auto) Eos # (Auto) Baso # (Auto) Abs Immat Gran (auto) Absolute Neuts (auto) 3.9 Absolute Nucleated RBC Nucleated RBC % (auto) Sodium Potassium Chloride Carbon Dioxide Anion Gap BUN Creatinine Estim Creat Clear Calc Estimated GFR POC Glucose 110 114 Random Glucose Fasting Glucose Estimat Average Glucose Hemoglobin A1c % Calcium Total Bilirubin AST ALT Alkaline Phosphatase Ammonia Total Protein Albumin TSH Salicylates Acetaminophen Clozapine Norclozapine [place] Ethyl Alcohol COVID-19 ([facility]) COVID-19 [facility] 02/11/24 02/12/24 02/12/24 10:16 06:36 10:14 WBC RBC Hgb Hct MCV MCH MCHC RDW Plt Count MPV Immature Gran % (Auto) Neut % (Auto) Lymph % (Auto) [place] % (Auto) Eos % (Auto) Baso % (Auto) Lymph # (Auto) [place] # (Auto) Eos # (Auto) Baso # (Auto) Abs Immat Gran (auto) Absolute Neuts (auto) Absolute Nucleated RBC Nucleated RBC % (auto) Sodium Potassium Chloride Carbon Dioxide Anion Gap BUN Creatinine 1.21 Estim Creat Clear Calc 75.8 Estimated GFR > 60 POC Glucose 130 H 102 Random Glucose Fasting Glucose Estimat Average Glucose Hemoglobin A1c % Calcium Total Bilirubin AST ALT Alkaline Phosphatase Ammonia Total Protein Albumin TSH Salicylates Acetaminophen Clozapine Norclozapine [place] Ethyl Alcohol COVID-19 ([facility]) COVID-19 [facility] 11/02/13/24 02/13/24 07:10 14:35 19:44 WBC RBC Hgb Hct MCV MCH MCHC RDW Plt Count MPV Immature Gran % (Auto) Neut % (Auto) Lymph % (Auto) [place] % (Auto) Eos % (Auto) Baso % (Auto) Lymph # (Auto) [place] # (Auto) Eos # (Auto) Baso # (Auto) Abs Immat Gran (auto) Absolute Neuts (auto) Absolute Nucleated RBC Nucleated RBC % (auto) Sodium Potassium Chloride Carbon Dioxide Anion Gap BUN Creatinine Estim Creat Clear Calc Estimated GFR POC Glucose 115 89 105 Random Glucose Fasting Glucose Estimat Average Glucose Hemoglobin A1c % Calcium Total Bilirubin AST ALT Alkaline Phosphatase Ammonia Total Protein Albumin TSH Salicylates Acetaminophen Clozapine Norclozapine [place] Ethyl Alcohol COVID-19 ([facility]) [employer] 02/14/24 02/14/24 02/15/24 06:30 14:36 06:36 WBC 6.9 RBC 4.34 L Hgb 12.5 L Hct 37.5 L MCV 86.4 MCH 28.8 MCHC 33.3 RDW 12.7 Plt Count 130 L MPV 11.0 Immature Gran % (Auto) 0.3 Neut % (Auto) 71.4 Lymph % (Auto) 19.9 L [place] % (Auto) 8.3 Eos % (Auto) 0.0 Baso % (Auto) 0.1 Lymph # (Auto) 1.4 [place] # (Auto) 0.6 Eos # (Auto) 0.0 Baso # (Auto) 0.0 Abs Immat Gran (auto) 0.02 Absolute Neuts (auto) 4.9 Absolute Nucleated RBC 0.000 Nucleated RBC % (auto) 0.0 Sodium 144 Potassium 3.8 Chloride 110 H Carbon Dioxide 23 Anion Gap 15 BUN 21 H Creatinine 1.30 Estim Creat Clear Calc 70.5 Estimated GFR 56 POC Glucose 111 99 Random Glucose Fasting Glucose 99 Estimat Average Glucose Hemoglobin A1c % Calcium 9.1 Total Bilirubin 0.5 AST 26 ALT 13 Alkaline Phosphatase 63 Ammonia 39 Total Protein 6.4 L Albumin 3.8 TSH 0.92 Salicylates Acetaminophen Clozapine Norclozapine [place] Ethyl Alcohol COVID-19 ([facility]) [employer] 02/16/24 02/16/24 02/16/24 06:34 07:03 10:11 WBC RBC Hgb Hct MCV MCH MCHC RDW Plt Count MPV Immature Gran % (Auto) Neut % (Auto) Lymph % (Auto) [place] % (Auto) Eos % (Auto) Baso % (Auto) Lymph # (Auto) [place] # (Auto) Eos # (Auto) Baso # (Auto) Abs Immat Gran (auto) Absolute Neuts (auto) 4.5 Absolute Nucleated RBC Nucleated RBC % (auto) Sodium Potassium Chloride Carbon Dioxide Anion Gap BUN Creatinine Estim Creat Clear Calc Estimated GFR POC Glucose 67 78 Random Glucose Fasting Glucose Estimat Average Glucose Hemoglobin A1c % Calcium Total Bilirubin AST ALT Alkaline Phosphatase Ammonia Total Protein Albumin TSH Salicylates Acetaminophen Clozapine Norclozapine [place] Ethyl Alcohol COVID-19 ([facility]) COVID-19 [employer] 02/17/24 02/18/24 02/18/24 06:24 06:45 08:19 WBC RBC Hgb Hct MCV MCH MCHC RDW Plt Count MPV Immature Gran % (Auto) Neut % (Auto) Lymph % (Auto) [place] % (Auto) Eos % (Auto) Baso % (Auto) Lymph # (Auto) [place] # (Auto) Eos # (Auto) Baso # (Auto) Abs Immat Gran (auto) Absolute Neuts (auto) Absolute Nucleated RBC Nucleated RBC % (auto) Sodium Potassium Chloride Carbon Dioxide Anion Gap BUN Creatinine 1.48 H Estim Creat Clear Calc 61.2 Estimated GFR 48 POC Glucose 88 114 Random Glucose Fasting Glucose Estimat Average Glucose Hemoglobin A1c % Calcium Total Bilirubin AST ALT Alkaline Phosphatase Ammonia Total Protein Albumin TSH Salicylates Acetaminophen Clozapine Norclozapine [place] Ethyl Alcohol COVID-19 ([facility]) COVID-19 Clin Com 02/19/24 02/20/24 02/21/24 06:40 06:33 06:48 WBC RBC Hgb Hct MCV MCH MCHC RDW Plt Count MPV Immature Gran % (Auto) Neut % (Auto) Lymph % (Auto) [place] % (Auto) Eos % (Auto) Baso % (Auto) Lymph # (Auto) [place] # (Auto) Eos # (Auto) Baso # (Auto) Abs Immat Gran (auto) Absolute Neuts (auto) Absolute Nucleated RBC Nucleated RBC % (auto) Sodium Potassium Chloride Carbon Dioxide Anion Gap BUN Creatinine Estim Creat Clear Calc Estimated GFR POC Glucose 111 117 H 134 H Random Glucose Fasting Glucose Estimat Average Glucose Hemoglobin A1c % Calcium Total Bilirubin AST ALT Alkaline Phosphatase Ammonia Total Protein Albumin TSH Salicylates Acetaminophen Clozapine Norclozapine [place] Ethyl Alcohol COVID-19 ([facility]) COVID-19 Clin Com Airway Mallampati Class: Patient Non-Cooperative (missing a couple, one top front and top right) Heart: rrr Lungs: uncooperative, shallow breathing, Assessment and Plan Assessment Anesthesia Assessment: Chart Reviewed Final Anesthetic Review Family History of Problems with Anesthesia: No History of Problems with Anesthesia: No NPO: Yes ASA Class: III Final Preanesthetic Review: No Changes in Pt Med Stat, Meds/Allgs Chart Reviewed and Consent Obtained/Reviewed Patient Risk: Intermediate Procedure Risk: Intermediate Anesthetic Plan Anesthetic Plan: GA Disposition: Standard PACU
--- NOTE | 2024-02-21 08:50 | MHC.SHP ---
Pre-Procedural Eval Section A - 24 Hr Update-Section A only Date of Service: 02/21/24 Changes since office visit: Yes New Medical Problems and Yes Changes in Medication; No Cold of Flu in the past 2 weeks and No Patient answered all questions The patient has been examined within 24 hours of the surgical procedure. The History & Physical has been completed within 30 days and I have reviewed it.: Yes Section B - Complete if H&P > 30 days Chief Complaint: catatonia Details of Present Illness: recurrent catatonia had recent fall neg head ct neck ct see hosp eval pt with htn diabetes .HCP gives consent to procedure reviewed with anethesia Relevant Social History: None Allergies: Allergies Allergy/AdvReac Type Severity Reaction Status Date / Time No Known Allergies [NKA] Allergy Unknown NONE Verified 01/05/24 11:31 Review of Systems Sugical H&P ROS: Negative: Cardiovascular and Yes, Specify: Respiratory (cxr neg lot of secretions ) and Neurological (not verbal tracks with eyes) Exam Surgical H&P Exam: Normal: Heart and Normal: Lungs (pharyngeal sec cxr neg) and Significant Findings: Neurological (awake non verbal tracks with eyes ) Plan Diagnosis/Plan: Unchanged I have reviewed the history and physical and performed a pertinent physical examination on my patient. No changes have occurred unless specified. Time Spent With Patient Time: Total time managing care of this patient today ____ minutes.
--- NOTE | 2024-02-21 09:40 | HO.ECTPROC ---
ECT Procedure Note Diagnosis/Treatment Date of Service: 02/21/24 Diagnosis: Schizoaffective Disorder Current Treatment Number: 1 Treatment: Series Interval Clinical Notes: consent had been obtained from pts father hcp Time: Total time managing care of this patient today ____ minutes. ECT Settings Device: THYMATRON DGx Electrode Placement: Bifrontal Program/Pulse Width: 0.50 Energy Percent: 100 Seizure Duration By EEG (in seconds): 55 Medications Administration General Anesthetic: Etomidate (18) Muscle Relaxant: Succinylcholine (120) Ancillary Medications Anti-emetics: Zofran - Pre ECT Cardiovascular Medications: Glycopyrrolate (0.2) Airway Management Airway Management: Bag Mask Ventilation Treatment Recommendations No Changes Recommended: No change
--- NOTE | 2024-02-21 10:06 | PC.NURSE ---
Pt given a bed bath following ECT. Stage 1/blanchable/lynette size noted on coccyx/left cheek. Area cleaned/barrier cream applied. Repositioned patient. Notified .
[2024-02-21] MEDS: LORazepam 1 MG TABLET 2 MG PO ×3 (10:37→20:45)
--- NOTE | 2024-02-21 11:39 | MHC.CLN ---
NUTRITION PATIENT RECEIVING ECT TREATMENT. HX OF POOR PO SOME DAYS. INTAKE APPEARS TO BE IMPROVING. RD TO FOLLOW UP WEEKLY.
--- NOTE | 2024-02-21 14:02 | HO.PSYCHPN ---
Subjective Subjective Date of Service: 02/21/24 Reason For Visit: catatonia Subjective Notes: Conditional Voluntary Healthcare Proxy: Yes Interim History: The nursing staff reported the patient had been catatonic today he had 1st ECT. He had been pleasant in the morning slept well. After ECT he was over-sedated no changes in mental status. Mental Status Exam Mental Status Exam Patient Appearance: Appropriate Patient Orientation: Person and Situation Level of Consciousness: Awake and Appropriate Patient Behavior: Guarded and Passive Mood Description: Withdrawn Affect Description: Constricted Patient Cognition Impaired: Yes Ability to Follow Directions: Good Speech Pattern: Clear Hallucinations: None Delusions: Not Present Thought Process: Distracted Thought Content: positive for [place] and positive for Thought Blocking Judgement: Poor Diagnostics Vital Signs (24Hr): Vital Signs - 24 hr 02/20/24 20:00 02/21/24 06:20 02/21/24 06:46 Temperature 97.7 F 97.3 F 97.3 F Pulse Rate 82 93 92 Respiratory Rate 18 18 16 Blood Pressure 129/77 137/78 138/90 H Pulse Oximetry 96 94 95 Oxygen Delivery Method Room Air Room Air Room Air Oxygen Flow Rate 02/21/24 09:36 02/21/24 09:41 02/21/24 09:46 Temperature 98.1 F 98.1 F Pulse Rate 91 98 95 Respiratory Rate 16 16 16 Blood Pressure 157/89 H 147/117 H 160/100 H Pulse Oximetry 100 98 96 Oxygen Delivery Method Nasal Cannula Room Air Oxygen Flow Rate 2 02/21/24 10:01 02/21/24 10:15 02/21/24 10:33 Temperature 98.1 F 98.1 F 97.1 F Pulse Rate 93 90 92 Respiratory Rate 16 21 H 16 Blood Pressure 146/89 H 141/80 H 143/80 H Pulse Oximetry 96 96 96 Oxygen Delivery Method Room Air Room Air Room Air Oxygen Flow Rate 02/21/24 10:33 Temperature 97.1 F Pulse Rate 92 Respiratory Rate 16 Blood Pressure 143/80 H Pulse Oximetry 96 Oxygen Delivery Method Oxygen Flow Rate BMI result Body Mass Index 29.8 Labs 02/14/24 14:36 02/18/24 08:19 Labs: Laboratory Results - last 48 hr 02/20/24 02/21/24 06:33 06:48 POC Glucose 117 H 134 H Imaging Radiology Impressions: ITS Impressions Chest X-Ray 01/07/24 13:27 IMPRESSION: Bronchial wall thickening may be infectious and/or inflammatory in etiology. Electronically signed by: Marianna Torres MD 01/07/2024 03:31 PM EDT RP Cervical Spine CT 02/13/24 14:54 IMPRESSION: Multilevel spondylosis likely representing DISH without acute fracture or trauma-related listhesis. A acute to subacute fracture of the syndesmophyte formation at C3 cannot be entire excluded. If patient's symptoms persist recommend non-IV contrast MRI cervical spine. Fleischner guidelines were followed. Electronically signed by: Mayank Irwin MD 02/13/2024 03:34 PM EST RP Head CT 02/13/24 14:54 IMPRESSION: No acute fracture, bony calvarium or acute intracranial hemorrhage. Stable brain. Electronically signed by: Mayank Irwin MD 02/13/2024 03:39 PM EST RP Hip CT 02/13/24 14:54 IMPRESSION: No acute fracture or dislocation right coxofemoral joints/right hip. Electronically signed by: Mayank Irwin MD 02/13/2024 03:48 PM EST RP Hip CT 02/13/24 14:54 IMPRESSION: No acute fracture or dislocation, left coxofemoral joint/hip. Electronically signed by: Mayank Irwin MD 02/13/2024 03:44 PM EST RP Cervical Spine MRI 02/14/24 14:41 IMPRESSION: Within the limitations of the study, 1. No definitive evidence of fracture involving the C3 syndesmophyte. 2. Multilevel cervical spondylosis without significant spinal canal stenosis or cord compression. Mild multilevel neural foraminal narrowing as described above. Electronically signed by: Villa Tello MD 02/14/2024 03:51 PM EST RP Medications Medications Current Medications Acetaminophen (Acetaminophen 325 Mg Tablet) 650 mg PO Q6H PRN PRN Reason: Headache/Pain Mild Scale (1-3) Last Admin: 02/14/24 01:05 Dose: 650 mg Al Hydroxide/Mg Hydroxide (Magnesium Hydrox/Alum Hydrox 30 Ml Oral.Susp) 30 ml PO Q6H PRN PRN Reason: Heartburn/Nausea Clonidine HCl (Clonidine Hcl 0.1 Mg Tablet) 0.05 mg PO BID [facility]; Protocol Last Admin: 02/14/24 16:03 Dose: Not Given Clozapine 200 mg/ Clozapine 50 (mg) 250 mg PO DAILY@1930 [facility] Last Admin: 02/20/24 20:05 Dose: 250 mg Docusate Sodium (Docusate Sodium 100 Mg Capsule) 100 mg PO BID [facility] Last Admin: 02/14/24 16:04 Dose: Not Given Glucose (Glucose Gel 15 Gm Gel..Gram.) 15 gm PO Q15M PRN; Protocol PRN Reason: per Hypoglycemia Standing Ord. Hydroxyzine HCl (Hydroxyzine Hcl 25 Mg Tablet) 25 mg PO Q6H PRN PRN Reason: Anxiety Last Admin: 02/20/24 20:05 Dose: 25 mg Dextrose (D10) 250 mls @ 750 mls/hr IV Q15M PRN; Protocol PRN Reason: per Hypoglycemia Standing Ord. Insulin Human Lispro (Insulin Lispro 100 Unit/Ml 3 Ml Vial) 0 unit SUBCUT DAILY [facility]; Protocol Last Admin: 02/21/24 08:28 Dose: Not Given Lorazepam (Lorazepam 1 Mg Tablet) 2 mg PO TID [facility] Last Admin: 02/21/24 10:37 Dose: 2 mg Magnesium Hydroxide (Milk Of Magnesia 30 Ml Oral.Susp) 30 ml PO DAILY PRN PRN Reason: Constipation Last Admin: 01/11/24 12:48 Dose: 30 ml Omeprazole (Omeprazole 20 Mg Capsule.Dr) 20 mg PO DAILY@0630 [facility] Last Admin: 02/14/24 05:52 Dose: 20 mg Polyethylene Glycol (Polyethylene Glycol 3350 17 Gm Powd.Pack) 17 gm PO DAILY [facility] Last Admin: 02/14/24 16:04 Dose: Not Given Senna (Sennosides 8.6 Mg Tablet) 17.2 mg PO BEDTIME [facility] Last Admin: 02/20/24 20:05 Dose: 17.2 mg Sertraline HCl (Sertraline Hcl 100 Mg Tablet) 100 mg PO DAILY [facility] Tamsulosin HCl (Tamsulosin Hcl 0.4 Mg Capsule) 0.4 mg PO BEDTIME [facility] Last Admin: 02/20/24 20:05 Dose: 0.4 mg Trazodone HCl (Trazodone Hcl 50 Mg Tablet) 50 mg PO BEDTIME MRX1 PRN PRN Reason: Insomnia Last Admin: 02/20/24 20:05 Dose: 50 mg Allergies Allergies Allergy/AdvReac Type Severity Reaction Status Date / Time No Known Allergies [NKA] Allergy Unknown NONE Verified 01/05/24 11:31 Assessment & Plan Assessment & Plan (1) Schizophrenia, catatonic: Status: Acute Code(s): F20.2 - Catatonic schizophrenia Plan Patient is a 58-year-old male with a PMH significant for HTN, [id number] type 2 diabetes, BPH, schizoaffective disorder, and depression with catatonia admitted to [facility] with hospitalist consult ECT risk stratification. ECT risk stratification Patient with history of multiple prior ECT without apparent complications No apparent acute medical complaints, vitals and EKG reassuring RCRI class 1 risk, 0 points; no additional cardiac workup indicated Based on patient's history, exam, and EKG, there are no apparent contraindications for the planned procedure Plan 1. The patient remains catatonic, we will schedule for ECT next Monday. 2. Hospitalist already cleared him up after his last fall. 3. Continue one-to-one observation. 4. Continue with Clozaril and benzodiazepines. 5. ECT to be scheduled, we will need to contact his father for consent for the treatment. Finally we got consent and he had his 1st ECT on February 20 6. Ativan was increased up to 2 mg p.o. t.i.d. on February 19 Reason for continued inpatient stay Substantial Risk for: inability to function, rapid decompensation and med/psych decompensation Time Spent With Patient Time: Total time managing care of this patient today __20__ minutes.
[2024-02-21] MEDS: cloZAPine 200 MG, cloZAPine 50 MG 250 MG PO (20:44)
[2024-02-21] MEDS: Tamsulosin HCL 0.4 MG CAPSULE PO (20:45)
[2024-02-21] MEDS: Sennosides 8.6 MG TABLET 17.2 MG PO (20:45)
[2024-02-22 06:38] LABS: Glucose, Whole Blood 121 mg/dL (60-115)
[2024-02-22 07:00] VITALS: BMI 29.0
[2024-02-22 08:00] VITALS: BP 122/78; PULSE 78; RESP 18; TEMP 36.6; O2SAT 97
--- NOTE | 2024-02-22 12:35 | P.PNPSI_ITS ---
Subjective Subjective Date of Service: 02/22/24 Reason For Visit: catatonia Subjective Notes: Conditional Voluntary Interim History: pt with somewhat orozco range of affect more verbal Mental Status Exam Mental Status Exam Patient Appearance: Appropriate Patient Orientation: Person, Place and Situation Level of Consciousness: Appropriate and Drowsy Patient Behavior: Guarded and Passive Mood Description: Withdrawn Affect Description: Constricted Patient Cognition Impaired: Yes Ability to Follow Directions: Good Speech Pattern: Clear Hallucinations: None Delusions: Not Present Thought Process: Distracted Thought Content: positive for [place] and positive for Thought Blocking Judgement: Fair Judgement and Insight: less of a delay in thought felt like he was getting better Diagnostics Vital Signs (24Hr): Vital Signs - 24 hr 02/21/24 20:00 02/22/24 08:00 Temperature 97.1 F 97.9 F Pulse Rate 76 78 Respiratory Rate 18 18 Blood Pressure 118/70 122/78 Pulse Oximetry 97 97 Oxygen Delivery Method Room Air Room Air BMI result Body Mass Index 29.8 Labs 02/14/24 14:36 02/18/24 08:19 Labs: Laboratory Results - last 48 hr 02/21/24 02/22/24 06:48 06:22 POC Glucose 134 H 121 H Imaging Radiology Impressions: ITS Impressions Chest X-Ray 01/07/24 13:27 IMPRESSION: Bronchial wall thickening may be infectious and/or inflammatory in etiology. Electronically signed by: Marianna Torres MD 01/07/2024 03:31 PM EDT RP Cervical Spine CT 02/13/24 14:54 IMPRESSION: Multilevel spondylosis likely representing DISH without acute fracture or trauma-related listhesis. A acute to subacute fracture of the syndesmophyte formation at C3 cannot be entire excluded. If patient's symptoms persist recommend non-IV contrast MRI cervical spine. Fleischner guidelines were followed. Electronically signed by: Mayank Irwin MD 02/13/2024 03:34 PM EST RP Head CT 02/13/24 14:54 IMPRESSION: No acute fracture, bony calvarium or acute intracranial hemorrhage. Stable brain. Electronically signed by: Mayank Irwin MD 02/13/2024 03:39 PM EST RP Hip CT 02/13/24 14:54 IMPRESSION: No acute fracture or dislocation right coxofemoral joints/right hip. Electronically signed by: Mayank Irwin MD 02/13/2024 03:48 PM EST RP Hip CT 02/13/24 14:54 IMPRESSION: No acute fracture or dislocation, left coxofemoral joint/hip. Electronically signed by: Mayank Irwin MD 02/13/2024 03:44 PM EST RP Cervical Spine MRI 02/14/24 14:41 IMPRESSION: Within the limitations of the study, 1. No definitive evidence of fracture involving the C3 syndesmophyte. 2. Multilevel cervical spondylosis without significant spinal canal stenosis or cord compression. Mild multilevel neural foraminal narrowing as described above. Electronically signed by: Villa Tello MD 02/14/2024 03:51 PM EST RP Chest X-Ray 02/21/24 07:23 IMPRESSION: Unremarkable examination. Electronically signed by: Josse Gregorio MD 02/21/2024 05:53 PM EST RP Medications Medications Current Medications Acetaminophen (Acetaminophen 325 Mg Tablet) 650 mg PO Q6H PRN PRN Reason: Headache/Pain Mild Scale (1-3) Last Admin: 02/14/24 01:05 Dose: 650 mg Al Hydroxide/Mg Hydroxide (Magnesium Hydrox/Alum Hydrox 30 Ml Oral.Susp) 30 ml PO Q6H PRN PRN Reason: Heartburn/Nausea Clonidine HCl (Clonidine Hcl 0.1 Mg Tablet) 0.05 mg PO BID [facility]; Protocol Last Admin: 02/14/24 16:03 Dose: Not Given Clozapine 200 mg/ Clozapine 50 (mg) 250 mg PO DAILY@1930 [facility] Last Admin: 02/21/24 20:44 Dose: 250 mg Docusate Sodium (Docusate Sodium 100 Mg Capsule) 100 mg PO BID [facility] Last Admin: 02/14/24 16:04 Dose: Not Given Glucose (Glucose Gel 15 Gm Gel..Gram.) 15 gm PO Q15M PRN; Protocol PRN Reason: per Hypoglycemia Standing Ord. Hydroxyzine HCl (Hydroxyzine Hcl 25 Mg Tablet) 25 mg PO Q6H PRN PRN Reason: Anxiety Last Admin: 02/20/24 20:05 Dose: 25 mg Dextrose (D10) 250 mls @ 750 mls/hr IV Q15M PRN; Protocol PRN Reason: per Hypoglycemia Standing Ord. Insulin Human Lispro (Insulin Lispro 100 Unit/Ml 3 Ml Vial) 0 unit SUBCUT DAILY [facility]; Protocol Last Admin: 02/22/24 07:44 Dose: Not Given Lorazepam (Lorazepam 1 Mg Tablet) 2 mg PO TID [facility] Last Admin: 02/22/24 08:31 Dose: Not Given Magnesium Hydroxide (Milk Of Magnesia 30 Ml Oral.Susp) 30 ml PO DAILY PRN PRN Reason: Constipation Last Admin: 01/11/24 12:48 Dose: 30 ml Omeprazole (Omeprazole 20 Mg Capsule.Dr) 20 mg PO DAILY@0630 [facility] Last Admin: 02/14/24 05:52 Dose: 20 mg Polyethylene Glycol (Polyethylene Glycol 3350 17 Gm Powd.Pack) 17 gm PO DAILY [facility] Last Admin: 02/14/24 16:04 Dose: Not Given Senna (Sennosides 8.6 Mg Tablet) 17.2 mg PO BEDTIME [facility] Last Admin: 02/21/24 20:45 Dose: 17.2 mg Sertraline HCl (Sertraline Hcl 100 Mg Tablet) 100 mg PO DAILY [facility] Tamsulosin HCl (Tamsulosin Hcl 0.4 Mg Capsule) 0.4 mg PO BEDTIME [facility] Last Admin: 02/21/24 20:45 Dose: 0.4 mg Trazodone HCl (Trazodone Hcl 50 Mg Tablet) 50 mg PO BEDTIME MRX1 PRN PRN Reason: Insomnia Last Admin: 02/20/24 20:05 Dose: 50 mg Allergies Allergies Allergy/AdvReac Type Severity Reaction Status Date / Time No Known Allergies [NKA] Allergy Unknown NONE Verified 01/05/24 11:31 Assessment & Plan Assessment & Plan (1) Schizophrenia, catatonic: Status: Acute Code(s): F20.2 - Catatonic schizophrenia Plan Patient is a 58-year-old male with a PMH significant for HTN, [id number] type 2 diabetes, BPH, schizoaffective disorder, and depression with catatonia admitted to [facility] with hospitalist consult ECT risk stratification. ECT risk stratification Patient with history of multiple prior ECT without apparent complications No apparent acute medical complaints, vitals and EKG reassuring RCRI class 1 risk, 0 points; no additional cardiac workup indicated Based on patient's history, exam, and EKG, there are no apparent contraindications for the planned procedure Plan 1. The patient remains catatonic, we will schedule for ECT next Monday. 2. Hospitalist already cleared him up after his last fall. 3. Continue one-to-one observation. 4. Continue with Clozaril and benzodiazepines. 5. ECT to be scheduled, we will need to contact his father for consent for the treatment. Finally we got consent and he had his 1st ECT on February 20 6. Ativan was increased up to 2 mg p.o. t.i.d. on February 19 02/22/24 cont ect tolerated bf well some improvement Reason for continued inpatient stay Substantial Risk for: inability to function, rapid decompensation and med/psych decompensation Time Spent With Patient Time: Total time managing care of this patient today ____ minutes.
[2024-02-22] MEDS: LORazepam 1 MG TABLET 2 MG PO ×2 (14:35→21:06)
[2024-02-22 20:00] VITALS: BP 114/70; PULSE 86; RESP 16; TEMP 36.2; O2SAT 95
[2024-02-22] MEDS: Tamsulosin HCL 0.4 MG CAPSULE PO (21:06)
[2024-02-22] MEDS: cloZAPine 200 MG, cloZAPine 50 MG 250 MG PO (21:06)
[2024-02-22] MEDS: Sennosides 8.6 MG TABLET 17.2 MG PO (21:07)
[2024-02-23 08:07] LABS: Neut%MD 65.7 %; Neutrophils Absolute Auto 3.9 x10*3/uL (2.0-8.3); WBCANC 5.9 X10*3/uL
[2024-02-23 09:10] VITALS: BP 111/69; PULSE 71; RESP 16; TEMP 36; O2SAT 99
[2024-02-23] MEDS: LORazepam 1 MG TABLET 2 MG PO ×3 (09:12→20:13)
--- NOTE | 2024-02-23 14:44 | P.PNPSI_ITS ---
Subjective Subjective Date of Service: 02/23/24 Reason For Visit: catatonia Subjective Notes: Conditional Voluntary Healthcare Proxy: Yes Interim History: The nursing staff reported the patient showed flat affect he had been slightly more active as per the staff. On interview the patient was able to answer a few simple questions still hypoactive but much better after ECT. Mental Status Exam Mental Status Exam Patient Appearance: Appropriate Patient Orientation: Person and Situation Level of Consciousness: Awake and Appropriate Patient Behavior: Guarded and Passive Mood Description: Withdrawn Affect Description: Blunted Patient Cognition Impaired: Yes Ability to Follow Directions: Good Speech Pattern: Clear Hallucinations: None Delusions: Not Present Thought Process: Distracted and Slowed Thinking Thought Content: positive for [place] and positive for [place] of Content Judgement: Poor Diagnostics Vital Signs (24Hr): Vital Signs - 24 hr 02/22/24 20:00 02/23/24 09:10 Temperature 97.2 F 96.8 F Pulse Rate 86 71 Respiratory Rate 16 16 Blood Pressure 114/70 111/69 Pulse Oximetry 95 99 Oxygen Delivery Method Room Air Room Air BMI result Body Mass Index 29.0 Labs 02/14/24 14:36 02/18/24 08:19 Labs: Laboratory Results - last 48 hr 02/22/24 02/23/24 06:22 08:01 Absolute Neuts (auto) 3.9 POC Glucose 121 H Imaging Radiology Impressions: ITS Impressions Chest X-Ray 01/07/24 13:27 IMPRESSION: Bronchial wall thickening may be infectious and/or inflammatory in etiology. Electronically signed by: Marianna Torres MD 01/07/2024 03:31 PM EDT RP Cervical Spine CT 02/13/24 14:54 IMPRESSION: Multilevel spondylosis likely representing DISH without acute fracture or trauma-related listhesis. A acute to subacute fracture of the syndesmophyte formation at C3 cannot be entire excluded. If patient's symptoms persist recommend non-IV contrast MRI cervical spine. Fleischner guidelines were followed. Electronically signed by: Mayank Irwin MD 02/13/2024 03:34 PM EST RP Head CT 02/13/24 14:54 IMPRESSION: No acute fracture, bony calvarium or acute intracranial hemorrhage. Stable brain. Electronically signed by: Mayank Irwin MD 02/13/2024 03:39 PM EST RP Hip CT 02/13/24 14:54 IMPRESSION: No acute fracture or dislocation right coxofemoral joints/right hip. Electronically signed by: Mayank Irwin MD 02/13/2024 03:48 PM EST RP Hip CT 02/13/24 14:54 IMPRESSION: No acute fracture or dislocation, left coxofemoral joint/hip. Electronically signed by: Mayank Irwin MD 02/13/2024 03:44 PM EST RP Cervical Spine MRI 02/14/24 14:41 IMPRESSION: Within the limitations of the study, 1. No definitive evidence of fracture involving the C3 syndesmophyte. 2. Multilevel cervical spondylosis without significant spinal canal stenosis or cord compression. Mild multilevel neural foraminal narrowing as described above. Electronically signed by: Villa Tello MD 02/14/2024 03:51 PM EST RP Chest X-Ray 02/21/24 07:23 IMPRESSION: Unremarkable examination. Electronically signed by: Josse Gregorio MD 02/21/2024 05:53 PM EST RP Medications Medications Current Medications Acetaminophen (Acetaminophen 325 Mg Tablet) 650 mg PO Q6H PRN PRN Reason: Headache/Pain Mild Scale (1-3) Last Admin: 02/14/24 01:05 Dose: 650 mg Al Hydroxide/Mg Hydroxide (Magnesium Hydrox/Alum Hydrox 30 Ml Oral.Susp) 30 ml PO Q6H PRN PRN Reason: Heartburn/Nausea Clonidine HCl (Clonidine Hcl 0.1 Mg Tablet) 0.05 mg PO BID [facility]; Protocol Last Admin: 02/14/24 16:03 Dose: Not Given Clozapine 200 mg/ Clozapine 50 (mg) 250 mg PO DAILY@1930 [facility] Last Admin: 02/22/24 21:06 Dose: 250 mg Docusate Sodium (Docusate Sodium 100 Mg Capsule) 100 mg PO BID [facility] Last Admin: 02/14/24 16:04 Dose: Not Given Glucose (Glucose Gel 15 Gm Gel..Gram.) 15 gm PO Q15M PRN; Protocol PRN Reason: per Hypoglycemia Standing Ord. Hydroxyzine HCl (Hydroxyzine Hcl 25 Mg Tablet) 25 mg PO Q6H PRN PRN Reason: Anxiety Last Admin: 02/20/24 20:05 Dose: 25 mg Dextrose (D10) 250 mls @ 750 mls/hr IV Q15M PRN; Protocol PRN Reason: per Hypoglycemia Standing Ord. Insulin Human Lispro (Insulin Lispro 100 Unit/Ml 3 Ml Vial) 0 unit SUBCUT DAILY [facility]; Protocol Last Admin: 02/23/24 09:00 Dose: Not Given Lorazepam (Lorazepam 1 Mg Tablet) 2 mg PO TID [facility] Last Admin: 02/23/24 09:12 Dose: 2 mg Magnesium Hydroxide (Milk Of Magnesia 30 Ml Oral.Susp) 30 ml PO DAILY PRN PRN Reason: Constipation Last Admin: 01/11/24 12:48 Dose: 30 ml Omeprazole (Omeprazole 20 Mg Capsule.Dr) 20 mg PO DAILY@0630 [facility] Last Admin: 02/14/24 05:52 Dose: 20 mg Polyethylene Glycol (Polyethylene Glycol 3350 17 Gm Powd.Pack) 17 gm PO DAILY [facility] Last Admin: 02/14/24 16:04 Dose: Not Given Senna (Sennosides 8.6 Mg Tablet) 17.2 mg PO BEDTIME [facility] Last Admin: 02/22/24 21:07 Dose: 17.2 mg Sertraline HCl (Sertraline Hcl 100 Mg Tablet) 100 mg PO DAILY [facility] Tamsulosin HCl (Tamsulosin Hcl 0.4 Mg Capsule) 0.4 mg PO BEDTIME [facility] Last Admin: 02/22/24 21:06 Dose: 0.4 mg Trazodone HCl (Trazodone Hcl 50 Mg Tablet) 50 mg PO BEDTIME MRX1 PRN PRN Reason: Insomnia Last Admin: 02/20/24 20:05 Dose: 50 mg Allergies Allergies Allergy/AdvReac Type Severity Reaction Status Date / Time No Known Allergies [NKA] Allergy Unknown NONE Verified 01/05/24 11:31 Assessment & Plan Assessment & Plan (1) Schizophrenia, catatonic: Status: Acute Code(s): F20.2 - Catatonic schizophrenia Plan Patient is a 58-year-old male with a PMH significant for HTN, [id number] type 2 diabetes, BPH, schizoaffective disorder, and depression with catatonia admitted to [facility] with hospitalist consult ECT risk stratification. ECT risk stratification Patient with history of multiple prior ECT without apparent complications No apparent acute medical complaints, vitals and EKG reassuring RCRI class 1 risk, 0 points; no additional cardiac workup indicated Based on patient's history, exam, and EKG, there are no apparent contraindications for the planned procedure Plan 1. The patient remains catatonic, we will schedule for ECT next Monday. 2. Hospitalist already cleared him up after his last fall. 3. Continue one-to-one observation. 4. Continue with Clozaril and benzodiazepines. 5. ECT to be scheduled, we will need to contact his father for consent for the treatment. Finally we got consent and he had his 1st ECT on February 20 6. Ativan was increased up to 2 mg p.o. t.i.d. on February 19 Reason for continued inpatient stay Substantial Risk for: inability to function, rapid decompensation and med/psych decompensation Time Spent With Patient Time: Total time managing care of this patient today __20__ minutes.
[2024-02-23 20:00] VITALS: BP 120/57; PULSE 82; TEMP 36.1; O2SAT 97
[2024-02-23] MEDS: cloZAPine 200 MG, cloZAPine 50 MG 250 MG PO (20:12)
[2024-02-23] MEDS: Sennosides 8.6 MG TABLET 17.2 MG PO (20:13)
[2024-02-23] MEDS: Tamsulosin HCL 0.4 MG CAPSULE PO (20:13)
[2024-02-24 07:02] LABS: Glucose, Whole Blood 123 mg/dL (60-115)
[2024-02-24 08:00] VITALS: BP 119/63; PULSE 69; RESP 14; TEMP 36.1; O2SAT 98
[2024-02-24] MEDS: LORazepam 1 MG TABLET 2 MG PO ×3 (08:22→21:18)
[2024-02-24 20:00] VITALS: BP 103/51; PULSE 73; TEMP 36.8; O2SAT 95
[2024-02-24] MEDS: cloZAPine 200 MG, cloZAPine 50 MG 250 MG PO (21:17)
[2024-02-24] MEDS: Sennosides 8.6 MG TABLET 17.2 MG PO (21:18)
[2024-02-24] MEDS: Tamsulosin HCL 0.4 MG CAPSULE PO (21:18)
[2024-02-24] MEDS: traZODone HCL 50 MG TABLET PO (21:18)
--- NOTE | 2024-02-24 22:34 | P.PNPSI_ITS ---
Subjective Subjective Date of Service: 02/24/24 Reason For Visit: catatonia Subjective Notes: Conditional Voluntary Healthcare Proxy: Yes Interim History: Pt withdrawn some improvement noted cont with ect Mental Status Exam Mental Status Exam Patient Appearance: Appropriate Patient Orientation: Person and Situation Level of Consciousness: Awake and Appropriate Patient Behavior: Guarded and Passive Mood Description: Withdrawn Affect Description: Blunted Patient Cognition Impaired: Yes Ability to Follow Directions: Good Speech Pattern: Clear Hallucinations: None Delusions: Not Present Thought Process: Distracted and Slowed Thinking Thought Content: positive for [place] and positive for Poverty of Content Judgement: Poor Diagnostics Vital Signs (24Hr): Vital Signs - 24 hr 02/24/24 08:00 02/24/24 20:00 Temperature 97 F 98.3 F Pulse Rate 69 73 Respiratory Rate 14 Blood Pressure 119/63 103/51 L Pulse Oximetry 98 95 Oxygen Delivery Method Room Air Room Air BMI result Body Mass Index 29.0 Labs 02/14/24 14:36 02/18/24 08:19 Labs: Laboratory Results - last 48 hr 02/23/24 02/24/24 08:01 06:52 Absolute Neuts (auto) 3.9 POC Glucose 123 H Imaging Radiology Impressions: ITS Impressions Chest X-Ray 01/07/24 13:27 IMPRESSION: Bronchial wall thickening may be infectious and/or inflammatory in etiology. Electronically signed by: Marianna Torres MD 01/07/2024 03:31 PM EDT RP Cervical Spine CT 02/13/24 14:54 IMPRESSION: Multilevel spondylosis likely representing DISH without acute fracture or trauma-related listhesis. A acute to subacute fracture of the syndesmophyte formation at C3 cannot be entire excluded. If patient's symptoms persist recommend non-IV contrast MRI cervical spine. Fleischner guidelines were followed. Electronically signed by: Mayank Irwin MD 02/13/2024 03:34 PM EST RP Head CT 02/13/24 14:54 IMPRESSION: No acute fracture, bony calvarium or acute intracranial hemorrhage. Stable brain. Electronically signed by: Mayank Irwin MD 02/13/2024 03:39 PM EST RP Hip CT 02/13/24 14:54 IMPRESSION: No acute fracture or dislocation right coxofemoral joints/right hip. Electronically signed by: Mayank Irwin MD 02/13/2024 03:48 PM EST RP Hip CT 02/13/24 14:54 IMPRESSION: No acute fracture or dislocation, left coxofemoral joint/hip. Electronically signed by: Mayank Irwin MD 02/13/2024 03:44 PM EST RP Cervical Spine MRI 02/14/24 14:41 IMPRESSION: Within the limitations of the study, 1. No definitive evidence of fracture involving the C3 syndesmophyte. 2. Multilevel cervical spondylosis without significant spinal canal stenosis or cord compression. Mild multilevel neural foraminal narrowing as described above. Electronically signed by: Villa Tello MD 02/14/2024 03:51 PM EST RP Chest X-Ray 02/21/24 07:23 IMPRESSION: Unremarkable examination. Electronically signed by: Josse Gregorio MD 02/21/2024 05:53 PM EST RP Medications Medications Current Medications Acetaminophen (Acetaminophen 325 Mg Tablet) 650 mg PO Q6H PRN PRN Reason: Headache/Pain Mild Scale (1-3) Last Admin: 02/14/24 01:05 Dose: 650 mg Al Hydroxide/Mg Hydroxide (Magnesium Hydrox/Alum Hydrox 30 Ml Oral.Susp) 30 ml PO Q6H PRN PRN Reason: Heartburn/Nausea Clonidine HCl (Clonidine Hcl 0.1 Mg Tablet) 0.05 mg PO BID [facility]; Protocol Last Admin: 02/14/24 16:03 Dose: Not Given Clozapine 200 mg/ Clozapine 50 (mg) 250 mg PO DAILY@1930 [facility] Last Admin: 02/24/24 21:17 Dose: 250 mg Docusate Sodium (Docusate Sodium 100 Mg Capsule) 100 mg PO BID [facility] Last Admin: 02/14/24 16:04 Dose: Not Given Glucose (Glucose Gel 15 Gm Gel..Gram.) 15 gm PO Q15M PRN; Protocol PRN Reason: per Hypoglycemia Standing Ord. Hydroxyzine HCl (Hydroxyzine Hcl 25 Mg Tablet) 25 mg PO Q6H PRN PRN Reason: Anxiety Last Admin: 02/20/24 20:05 Dose: 25 mg Dextrose (D10) 250 mls @ 750 mls/hr IV Q15M PRN; Protocol PRN Reason: per Hypoglycemia Standing Ord. Insulin Human Lispro (Insulin Lispro 100 Unit/Ml 3 Ml Vial) 0 unit SUBCUT DAILY [facility]; Protocol Last Admin: 02/24/24 07:49 Dose: Not Given Lorazepam (Lorazepam 1 Mg Tablet) 2 mg PO TID [facility] Last Admin: 02/24/24 21:18 Dose: 2 mg Magnesium Hydroxide (Milk Of Magnesia 30 Ml Oral.Susp) 30 ml PO DAILY PRN PRN Reason: Constipation Last Admin: 01/11/24 12:48 Dose: 30 ml Omeprazole (Omeprazole 20 Mg Capsule.Dr) 20 mg PO DAILY@0630 [facility] Last Admin: 02/14/24 05:52 Dose: 20 mg Polyethylene Glycol (Polyethylene Glycol 3350 17 Gm Powd.Pack) 17 gm PO DAILY [facility] Last Admin: 02/14/24 16:04 Dose: Not Given Senna (Sennosides 8.6 Mg Tablet) 17.2 mg PO BEDTIME [facility] Last Admin: 02/24/24 21:18 Dose: 17.2 mg Sertraline HCl (Sertraline Hcl 100 Mg Tablet) 100 mg PO DAILY [facility] Tamsulosin HCl (Tamsulosin Hcl 0.4 Mg Capsule) 0.4 mg PO BEDTIME [facility] Last Admin: 02/24/24 21:18 Dose: 0.4 mg Trazodone HCl (Trazodone Hcl 50 Mg Tablet) 50 mg PO BEDTIME MRX1 PRN PRN Reason: Insomnia Last Admin: 02/24/24 21:18 Dose: 50 mg Allergies Allergies Allergy/AdvReac Type Severity Reaction Status Date / Time No Known Allergies [NKA] Allergy Unknown NONE Verified 01/05/24 11:31 Assessment & Plan Assessment & Plan (1) Schizophrenia, catatonic: Status: Acute Code(s): F20.2 - Catatonic schizophrenia Plan Patient is a 58-year-old male with a PMH significant for HTN, [id number] type 2 diabetes, BPH, schizoaffective disorder, and depression with catatonia admitted to [facility] with hospitalist consult ECT risk stratification. ECT risk stratification Patient with history of multiple prior ECT without apparent complications No apparent acute medical complaints, vitals and EKG reassuring RCRI class 1 risk, 0 points; no additional cardiac workup indicated Based on patient's history, exam, and EKG, there are no apparent contraindications for the planned procedure Plan 1. The patient remains catatonic, we will schedule for ECT next Monday. 2. Hospitalist already cleared him up after his last fall. 3. Continue one-to-one observation. 4. Continue with Clozaril and benzodiazepines. 5. ECT to be scheduled, we will need to contact his father for consent for the treatment. Finally we got consent and he had his 1st ECT on February 20 6. Ativan was increased up to 2 mg p.o. t.i.d. on February 19 02/24/24 cont plan of care cont ect some improvement noted Reason for continued inpatient stay Substantial Risk for: inability to function, rapid decompensation and med/psych decompensation Time Spent With Patient Time: Total time managing care of this patient today ____ minutes.
[2024-02-25 07:05] LABS: Glucose, Whole Blood 124 mg/dL (60-115)
[2024-02-25 08:00] VITALS: BP 118/60; PULSE 69; RESP 18; TEMP 37.2; O2SAT 98
[2024-02-25] MEDS: LORazepam 1 MG TABLET 2 MG PO ×3 (08:22→20:21)
[2024-02-25 08:45] LABS: Creatinine Clr Calc Pharmacy 67.7; Estimated Glomerular Filt Rate 55
--- NOTE | 2024-02-25 13:01 | HO.PSYCHPN ---
Subjective Subjective Date of Service: 02/25/24 Reason For Visit: catatonia Subjective Notes: Conditional Voluntary Interim History: Patient showing improved range affect out of bed more improvement noted Mental Status Exam Mental Status Exam Patient Appearance: Appropriate Patient Orientation: Person and Situation Level of Consciousness: Awake and Appropriate Patient Behavior: Guarded and Passive Mood Description: Calm Affect Description: Blunted Patient Cognition Impaired: Yes Ability to Follow Directions: Good Speech Pattern: Clear Hallucinations: None Delusions: Not Present Thought Process: Distracted and Slowed Thinking Thought Content: positive for [place] and positive for Poverty of Content Judgement: Poor Diagnostics Vital Signs (24Hr): Vital Signs - 24 hr 02/24/24 20:00 02/25/24 08:00 Temperature 98.3 F 98.9 F Pulse Rate 73 69 Respiratory Rate 18 Blood Pressure 103/51 L 118/60 Pulse Oximetry 95 98 Oxygen Delivery Method Room Air Room Air BMI result Body Mass Index 29.0 Labs 02/14/24 14:36 02/25/24 08:12 Labs: Laboratory Results - last 48 hr 02/24/24 02/25/24 02/25/24 06:52 07:00 08:12 Creatinine 1.32 Estim Creat Clear Calc 67.7 Estimated GFR 55 POC Glucose 123 H 124 H Imaging Radiology Impressions: ITS Impressions Chest X-Ray 01/07/24 13:27 IMPRESSION: Bronchial wall thickening may be infectious and/or inflammatory in etiology. Electronically signed by: Marianna Torres MD 01/07/2024 03:31 PM EDT RP Cervical Spine CT 02/13/24 14:54 IMPRESSION: Multilevel spondylosis likely representing DISH without acute fracture or trauma-related listhesis. A acute to subacute fracture of the syndesmophyte formation at C3 cannot be entire excluded. If patient's symptoms persist recommend non-IV contrast MRI cervical spine. Fleischner guidelines were followed. Electronically signed by: Mayank Irwin MD 02/13/2024 03:34 PM EST RP Head CT 02/13/24 14:54 IMPRESSION: No acute fracture, bony calvarium or acute intracranial hemorrhage. Stable brain. Electronically signed by: Mayank Irwin MD 02/13/2024 03:39 PM EST RP Hip CT 02/13/24 14:54 IMPRESSION: No acute fracture or dislocation right coxofemoral joints/right hip. Electronically signed by: Mayank Irwin MD 02/13/2024 03:48 PM EST RP Hip CT 02/13/24 14:54 IMPRESSION: No acute fracture or dislocation, left coxofemoral joint/hip. Electronically signed by: Mayank Irwin MD 02/13/2024 03:44 PM EST RP Cervical Spine MRI 02/14/24 14:41 IMPRESSION: Within the limitations of the study, 1. No definitive evidence of fracture involving the C3 syndesmophyte. 2. Multilevel cervical spondylosis without significant spinal canal stenosis or cord compression. Mild multilevel neural foraminal narrowing as described above. Electronically signed by: Villa Tello MD 02/14/2024 03:51 PM EST RP Chest X-Ray 02/21/24 07:23 IMPRESSION: Unremarkable examination. Electronically signed by: Josse Gregorio MD 02/21/2024 05:53 PM EST RP Medications Medications Current Medications Acetaminophen (Acetaminophen 325 Mg Tablet) 650 mg PO Q6H PRN PRN Reason: Headache/Pain Mild Scale (1-3) Last Admin: 02/14/24 01:05 Dose: 650 mg Al Hydroxide/Mg Hydroxide (Magnesium Hydrox/Alum Hydrox 30 Ml Oral.Susp) 30 ml PO Q6H PRN PRN Reason: Heartburn/Nausea Clonidine HCl (Clonidine Hcl 0.1 Mg Tablet) 0.05 mg PO BID [facility]; Protocol Last Admin: 02/14/24 16:03 Dose: Not Given Clozapine 200 mg/ Clozapine 50 (mg) 250 mg PO DAILY@1930 [facility] Last Admin: 02/24/24 21:17 Dose: 250 mg Docusate Sodium (Docusate Sodium 100 Mg Capsule) 100 mg PO BID [facility] Last Admin: 02/14/24 16:04 Dose: Not Given Glucose (Glucose Gel 15 Gm Gel..Gram.) 15 gm PO Q15M PRN; Protocol PRN Reason: per Hypoglycemia Standing Ord. Hydroxyzine HCl (Hydroxyzine Hcl 25 Mg Tablet) 25 mg PO Q6H PRN PRN Reason: Anxiety Last Admin: 02/20/24 20:05 Dose: 25 mg Dextrose (D10) 250 mls @ 750 mls/hr IV Q15M PRN; Protocol PRN Reason: per Hypoglycemia Standing Ord. Insulin Human Lispro (Insulin Lispro 100 Unit/Ml 3 Ml Vial) 0 unit SUBCUT DAILY [facility]; Protocol Last Admin: 02/25/24 08:22 Dose: Not Given Magnesium Hydroxide (Milk Of Magnesia 30 Ml Oral.Susp) 30 ml PO DAILY PRN PRN Reason: Constipation Last Admin: 01/11/24 12:48 Dose: 30 ml Omeprazole (Omeprazole 20 Mg Capsule.Dr) 20 mg PO DAILY@0630 [facility] Last Admin: 02/14/24 05:52 Dose: 20 mg Polyethylene Glycol (Polyethylene Glycol 3350 17 Gm Powd.Pack) 17 gm PO DAILY [facility] Last Admin: 02/14/24 16:04 Dose: Not Given Senna (Sennosides 8.6 Mg Tablet) 17.2 mg PO BEDTIME [facility] Last Admin: 02/24/24 21:18 Dose: 17.2 mg Sertraline HCl (Sertraline Hcl 100 Mg Tablet) 100 mg PO DAILY [facility] Tamsulosin HCl (Tamsulosin Hcl 0.4 Mg Capsule) 0.4 mg PO BEDTIME [facility] Last Admin: 02/24/24 21:18 Dose: 0.4 mg Trazodone HCl (Trazodone Hcl 50 Mg Tablet) 50 mg PO BEDTIME MRX1 PRN PRN Reason: Insomnia Last Admin: 02/24/24 21:18 Dose: 50 mg Allergies Allergies Allergy/AdvReac Type Severity Reaction Status Date / Time No Known Allergies [NKA] Allergy Unknown NONE Verified 01/05/24 11:31 Assessment & Plan Assessment & Plan (1) Schizophrenia, catatonic: Status: Acute Code(s): F20.2 - Catatonic schizophrenia Plan Patient is a 58-year-old male with a PMH significant for HTN, hoe-legytle-pqcoyurbb type 2 diabetes, BPH, schizoaffective disorder, and depression with catatonia admitted to [facility] psych with hospitalist consult ECT risk stratification. ECT risk stratification Patient with history of multiple prior ECT without apparent complications No apparent acute medical complaints, vitals and EKG reassuring RCRI class 1 risk, 0 points; no additional cardiac workup indicated Based on patient's history, exam, and EKG, there are no apparent contraindications for the planned procedure Plan 1. The patient remains catatonic, we will schedule for ECT next Monday. 2. Hospitalist already cleared him up after his last fall. 3. Continue one-to-one observation. 4. Continue with Clozaril and benzodiazepines. 5. ECT to be scheduled, we will need to contact his father for consent for the treatment. Finally we got consent and he had his 1st ECT on February 20 6. Ativan was increased up to 2 mg p.o. t.i.d. on February 19 02/24/24 cont plan of care cont ect some improvement noted 02/25/2024 Patient improving continue lorazepam continue ECT encourage out of bed Reason for continued inpatient stay Substantial Risk for: inability to function and rapid decompensation Time Spent With Patient Time: Total time managing care of this patient today ____ minutes.
[2024-02-25 20:00] VITALS: BP 116/56; PULSE 80; RESP 18; TEMP 36.2; O2SAT 97
[2024-02-25] MEDS: Tamsulosin HCL 0.4 MG CAPSULE PO (20:21)
[2024-02-25] MEDS: Sennosides 8.6 MG TABLET 17.2 MG PO (20:21)
[2024-02-25] MEDS: cloZAPine 200 MG, cloZAPine 50 MG 250 MG PO (20:21)
[2024-02-26] VITALS (11 sets, daily range): BP systolic 117–149; BP diastolic 62–94; PULSE 72–110; RESP 16–18; TEMP 36.1–37; O2SAT 93–98
[2024-02-26 06:33] LABS: Glucose, Whole Blood 106 mg/dL (60-115)
[2024-02-26 13:54] LABS: Glucose, Whole Blood 86 mg/dL (60-115)
[2024-02-26] MEDS: Lactated Ringers 1,000 ML 100 ML IVCONT (14:07)
--- NOTE | 2024-02-26 14:30 | MHC.SHP ---
Pre-Procedural Eval Section A - 24 Hr Update-Section A only Date of Service: 02/26/24 The patient is an INPATIENT: Yes Changes since office visit: No Cold of Flu in the past 2 weeks, No New Medical Problems, No Changes in Medication and No Patient answered all questions The patient has been examined within 24 hours of the surgical procedure. The History & Physical has been completed within 30 days and I have reviewed it.: Yes Section B - Complete if H&P > 30 days Chief Complaint: catatonia Allergies: Allergies Allergy/AdvReac Type Severity Reaction Status Date / Time No Known Allergies [NKA] Allergy Unknown NONE Verified 01/05/24 11:31 Plan I have reviewed the history and physical and performed a pertinent physical examination on my patient. No changes have occurred unless specified. Time Spent With Patient Time: Total time managing care of this patient today ____ minutes.
--- NOTE | 2024-02-26 15:09 | HO.ECTPROC ---
ECT Procedure Note Diagnosis/Treatment Date of Service: 02/26/24 Diagnosis: Catatonia and Schizoaffective Disorder Previous ECT Date: 02/21/24 Current Treatment Number: 2 Treatment: Series Interval Clinical Notes: The patient had a limited improvement after the first ECT last week. Still with catatonic symptoms, unable to verbalize side effects. ECT done now as bitemporal, no complications, woke up well Time: Total time managing care of this patient today ____ minutes. ECT Settings Device: THYMATRON DGx Electrode Placement: Bitemporal Program/Pulse Width: 0.50 Energy Percent: 100 Seizure Duration By EEG (in seconds): 67 By Motor Observation (in seconds): 42 Medications Administration General Anesthetic: Etomidate Muscle Relaxant: Succinylcholine Ancillary Medications Miscillaneous Medications: Other (Ativan 2 mg IVP after ECT) Airway Management Airway Management: Bag Mask Ventilation Treatment Recommendations No Changes Recommended: No change Pt Tolerated Procedure w/o Issue: Yes
[2024-02-26] MEDS: LORazepam 1 MG TABLET 2 MG PO ×2 (16:17→20:35)
--- NOTE | 2024-02-26 16:44 | PC.NURSE ---
Patient 1500, 2mg Ativan held, was back in the unit after 1600, scheduled 9am medications administered.
[2024-02-26] MEDS: Tamsulosin HCL 0.4 MG CAPSULE PO (20:34)
[2024-02-26] MEDS: Sennosides 8.6 MG TABLET 17.2 MG PO (20:35)
[2024-02-26] MEDS: cloZAPine 200 MG, cloZAPine 50 MG 250 MG PO (20:35)
[2024-02-26] MEDS: Docusate Sodium 100 MG CAPSULE PO (20:35)
[2024-02-26] MEDS: cloNIDine HCL 0.1 MG TABLET 0.05 MG PO (20:36)
--- NOTE | 2024-02-26 22:57 | P.PNPSI_ITS ---
Subjective Subjective Date of Service: 02/26/24 Reason For Visit: catatonia Subjective Notes: Conditional Voluntary Interim History: Pt showing improvement ect completed today Mental Status Exam Mental Status Exam Patient Appearance: Appropriate Patient Orientation: Person, Place and Situation Level of Consciousness: Awake and Appropriate Patient Behavior: Passive Mood Description: Calm and Constricted Affect Description: Blunted Patient Cognition Impaired: Yes Ability to Follow Directions: Good Speech Pattern: Clear Hallucinations: None Delusions: Not Present Thought Process: Distracted and Slowed Thinking Thought Content: positive for [place] and positive for Poverty of Content Judgement: Poor Diagnostics Vital Signs (24Hr): Vital Signs - 24 hr 02/26/24 07:54 02/26/24 13:55 02/26/24 14:01 Temperature 97.7 F 98.1 F 97.7 F Pulse Rate 72 83 72 Respiratory Rate 18 16 18 Blood Pressure 129/62 117/83 129/62 Pulse Oximetry 96 96 96 Oxygen Delivery Method Room Air Room Air Oxygen Flow Rate 02/26/24 15:20 02/26/24 15:25 02/26/24 15:30 Temperature 97.2 F Pulse Rate 100 104 H 105 H Respiratory Rate 17 18 18 Blood Pressure 129/78 133/85 149/94 H Pulse Oximetry 98 97 97 Oxygen Delivery Method Nasal Cannula with ETCO2 Nasal Cannula with ETCO2 Nasal Cannula with ETCO2 Oxygen Flow Rate 2 2 2 02/26/24 15:34 02/26/24 15:49 02/26/24 16:15 Temperature 97.2 F 98.6 F Pulse Rate 107 H 108 H 110 H Respiratory Rate 18 18 18 Blood Pressure 138/92 H 146/90 H 144/89 H Pulse Oximetry 95 95 93 Oxygen Delivery Method Room Air Room Air Room Air Oxygen Flow Rate 02/26/24 16:25 02/26/24 20:00 Temperature 98.6 F 96.9 F Pulse Rate 110 H 99 Respiratory Rate 18 17 Blood Pressure 144/89 H 130/80 Pulse Oximetry 93 94 Oxygen Delivery Method Room Air Oxygen Flow Rate BMI result Body Mass Index 29.0 Labs 02/14/24 14:36 02/25/24 08:12 Labs: Laboratory Results - last 48 hr 02/25/24 02/25/24 02/26/24 07:00 08:12 06:23 Creatinine 1.32 Estim Creat Clear Calc 67.7 Estimated GFR 55 POC Glucose 124 H 106 02/26/24 13:44 Creatinine Estim Creat Clear Calc Estimated GFR POC Glucose 86 Imaging Radiology Impressions: ITS Impressions Chest X-Ray 01/07/24 13:27 IMPRESSION: Bronchial wall thickening may be infectious and/or inflammatory in etiology. Electronically signed by: Marianna Torres MD 01/07/2024 03:31 PM EDT RP Cervical Spine CT 02/13/24 14:54 IMPRESSION: Multilevel spondylosis likely representing DISH without acute fracture or trauma-related listhesis. A acute to subacute fracture of the syndesmophyte formation at C3 cannot be entire excluded. If patient's symptoms persist recommend non-IV contrast MRI cervical spine. Fleischner guidelines were followed. Electronically signed by: Mayank Irwin MD 02/13/2024 03:34 PM EST RP Head CT 02/13/24 14:54 IMPRESSION: No acute fracture, bony calvarium or acute intracranial hemorrhage. Stable brain. Electronically signed by: Mayank Irwin MD 02/13/2024 03:39 PM EST RP Hip CT 02/13/24 14:54 IMPRESSION: No acute fracture or dislocation right coxofemoral joints/right hip. Electronically signed by: Mayank Irwin MD 02/13/2024 03:48 PM EST RP Hip CT 02/13/24 14:54 IMPRESSION: No acute fracture or dislocation, left coxofemoral joint/hip. Electronically signed by: Mayank Irwin MD 02/13/2024 03:44 PM EST RP Cervical Spine MRI 02/14/24 14:41 IMPRESSION: Within the limitations of the study, 1. No definitive evidence of fracture involving the C3 syndesmophyte. 2. Multilevel cervical spondylosis without significant spinal canal stenosis or cord compression. Mild multilevel neural foraminal narrowing as described above. Electronically signed by: Villa Tello MD 02/14/2024 03:51 PM EST RP Chest X-Ray 02/21/24 07:23 IMPRESSION: Unremarkable examination. Electronically signed by: Josse Gregorio MD 02/21/2024 05:53 PM EST RP Medications Medications Current Medications Acetaminophen (Acetaminophen 325 Mg Tablet) 650 mg PO Q6H PRN PRN Reason: Headache/Pain Mild Scale (1-3) Last Admin: 02/14/24 01:05 Dose: 650 mg Al Hydroxide/Mg Hydroxide (Magnesium Hydrox/Alum Hydrox 30 Ml Oral.Susp) 30 ml PO Q6H PRN PRN Reason: Heartburn/Nausea Clonidine HCl (Clonidine Hcl 0.1 Mg Tablet) 0.05 mg PO BID [facility]; Protocol Last Admin: 02/26/24 20:36 Dose: 0.05 mg Clozapine 200 mg/ Clozapine 50 (mg) 250 mg PO DAILY@1930 [facility] Last Admin: 02/26/24 20:35 Dose: 250 mg Docusate Sodium (Docusate Sodium 100 Mg Capsule) 100 mg PO BID [facility] Last Admin: 02/26/24 20:35 Dose: 100 mg Glucose (Glucose Gel 15 Gm Gel..Gram.) 15 gm PO Q15M PRN; Protocol PRN Reason: per Hypoglycemia Standing Ord. Hydroxyzine HCl (Hydroxyzine Hcl 25 Mg Tablet) 25 mg PO Q6H PRN PRN Reason: Anxiety Last Admin: 02/20/24 20:05 Dose: 25 mg Dextrose (D10) 250 mls @ 750 mls/hr IV Q15M PRN; Protocol PRN Reason: per Hypoglycemia Standing Ord. Insulin Human Lispro (Insulin Lispro 100 Unit/Ml 3 Ml Vial) 0 unit SUBCUT DAILY [facility]; Protocol Last Admin: 02/26/24 12:06 Dose: Not Given Lorazepam (Lorazepam 1 Mg Tablet) 2 mg PO TID [facility] Last Admin: 02/26/24 20:35 Dose: 2 mg Magnesium Hydroxide (Milk Of Magnesia 30 Ml Oral.Susp) 30 ml PO DAILY PRN PRN Reason: Constipation Last Admin: 01/11/24 12:48 Dose: 30 ml Omeprazole (Omeprazole 20 Mg Capsule.Dr) 20 mg PO DAILY@0630 [facility] Last Admin: 02/14/24 05:52 Dose: 20 mg Polyethylene Glycol (Polyethylene Glycol 3350 17 Gm Powd.Pack) 17 gm PO DAILY [facility] Last Admin: 02/14/24 16:04 Dose: Not Given Senna (Sennosides 8.6 Mg Tablet) 17.2 mg PO BEDTIME [facility] Last Admin: 02/26/24 20:35 Dose: 17.2 mg Sertraline HCl (Sertraline Hcl 100 Mg Tablet) 100 mg PO DAILY [facility] Tamsulosin HCl (Tamsulosin Hcl 0.4 Mg Capsule) 0.4 mg PO BEDTIME [facility] Last Admin: 02/26/24 20:34 Dose: 0.4 mg Trazodone HCl (Trazodone Hcl 50 Mg Tablet) 50 mg PO BEDTIME MRX1 PRN PRN Reason: Insomnia Last Admin: 02/24/24 21:18 Dose: 50 mg Allergies Allergies Allergy/AdvReac Type Severity Reaction Status Date / Time No Known Allergies [NKA] Allergy Unknown NONE Verified 01/05/24 11:31 Assessment & Plan Assessment & Plan (1) Schizophrenia, catatonic: Status: Acute Code(s): F20.2 - Catatonic schizophrenia Plan Patient is a 58-year-old male with a PMH significant for HTN, ibg-jodlzzw-[id number] type 2 diabetes, BPH, schizoaffective disorder, and depression with catatonia admitted to [facility] with hospitalist consult ECT risk stratification. ECT risk stratification Patient with history of multiple prior ECT without apparent complications No apparent acute medical complaints, vitals and EKG reassuring RCRI class 1 risk, 0 points; no additional cardiac workup indicated Based on patient's history, exam, and EKG, there are no apparent contraindications for the planned procedure Plan 1. The patient remains catatonic, we will schedule for ECT next Monday. 2. Hospitalist already cleared him up after his last fall. 3. Continue one-to-one observation. 4. Continue with Clozaril and benzodiazepines. 5. ECT to be scheduled, we will need to contact his father for consent for the treatment. Finally we got consent and he had his 1st ECT on February 20 6. Ativan was increased up to 2 mg p.o. t.i.d. on February 19 02/24/24 cont plan of care cont ect some improvement noted 02/25/2024 Patient improving continue lorazepam continue ECT encourage out of bed 02/26/24 cont ect lorazepam encourage oob Reason for continued inpatient stay Substantial Risk for: inability to function, rapid decompensation and med/psych decompensation Time Spent With Patient Time: Total time managing care of this patient today ____ minutes.
[2024-02-27] MEDS: Omeprazole 20 MG CAPSULE.DR PO (05:36)
[2024-02-27 06:41] LABS: Glucose, Whole Blood 111 mg/dL (60-115)
[2024-02-27 08:45] VITALS: BP 122/67; PULSE 75; RESP 17; TEMP 36.2; O2SAT 96
[2024-02-27] MEDS: Docusate Sodium 100 MG CAPSULE PO ×2 (08:48→20:52)
[2024-02-27] MEDS: Sertraline HCL 100 MG TABLET PO (08:48)
[2024-02-27] MEDS: cloNIDine HCL 0.1 MG TABLET 0.05 MG PO ×2 (08:48→21:00)
[2024-02-27] MEDS: LORazepam 1 MG TABLET 2 MG PO ×3 (08:48→20:52)
[2024-02-27] MEDS: polyethylene glycoL 3350 17 GM POWD.PACK PO (08:50)
[2024-02-27 20:00] VITALS: BP 110/52; PULSE 71; RESP 16; TEMP 36.7; O2SAT 97
[2024-02-27] MEDS: Tamsulosin HCL 0.4 MG CAPSULE PO (20:52)
[2024-02-27] MEDS: cloZAPine 200 MG, cloZAPine 50 MG 250 MG PO (20:52)
[2024-02-27] MEDS: Sennosides 8.6 MG TABLET 17.2 MG PO (20:53)
[2024-02-27 21:00] VITALS: BP 110/52
--- NOTE | 2024-02-27 22:35 | HO.PSYCHPN ---
Subjective Subjective Date of Service: 02/27/24 Reason For Visit: catatonia Subjective Notes: Conditional Voluntary Interim History: Pt oob more still flat tolerating ect mood improving Mental Status Exam Mental Status Exam Patient Appearance: Well Grooomed and Appropriate Patient Orientation: Person, Place and Situation Level of Consciousness: Awake and Appropriate Patient Behavior: Cooperative and Passive Mood Description: Calm and Constricted Affect Description: Blunted Patient Cognition Impaired: Yes Ability to Follow Directions: Good Speech Pattern: Clear Hallucinations: None Delusions: Not Present Thought Process: Distracted and Slowed Thinking Thought Content: positive for [place] and positive for Poverty of Content Judgement: Poor Diagnostics Vital Signs (24Hr): Vital Signs - 24 hr 02/27/24 08:45 02/27/24 20:00 02/27/24 21:00 Temperature 97.1 F 98.1 F Pulse Rate 75 71 Respiratory Rate 17 16 Blood Pressure 122/67 110/52 L 110/52 L Pulse Oximetry 96 97 Oxygen Delivery Method Room Air Room Air BMI result Body Mass Index 29.0 Labs 02/14/24 14:36 02/25/24 08:12 Labs: Laboratory Results - last 48 hr 02/26/24 02/26/24 02/27/24 06:23 13:44 06:31 POC Glucose 106 86 111 Imaging Radiology Impressions: ITS Impressions Chest X-Ray 01/07/24 13:27 IMPRESSION: Bronchial wall thickening may be infectious and/or inflammatory in etiology. Electronically signed by: Marianna Torres MD 01/07/2024 03:31 PM EDT RP Cervical Spine CT 02/13/24 14:54 IMPRESSION: Multilevel spondylosis likely representing DISH without acute fracture or trauma-related listhesis. A acute to subacute fracture of the syndesmophyte formation at C3 cannot be entire excluded. If patient's symptoms persist recommend non-IV contrast MRI cervical spine. Fleischner guidelines were followed. Electronically signed by: Mayank Irwin MD 02/13/2024 03:34 PM EST RP Head CT 02/13/24 14:54 IMPRESSION: No acute fracture, bony calvarium or acute intracranial hemorrhage. Stable brain. Electronically signed by: Mayank Irwin MD 02/13/2024 03:39 PM EST RP Hip CT 02/13/24 14:54 IMPRESSION: No acute fracture or dislocation right coxofemoral joints/right hip. Electronically signed by: Mayank Irwin MD 02/13/2024 03:48 PM EST RP Hip CT 02/13/24 14:54 IMPRESSION: No acute fracture or dislocation, left coxofemoral joint/hip. Electronically signed by: Mayank Irwin MD 02/13/2024 03:44 PM EST RP Cervical Spine MRI 02/14/24 14:41 IMPRESSION: Within the limitations of the study, 1. No definitive evidence of fracture involving the C3 syndesmophyte. 2. Multilevel cervical spondylosis without significant spinal canal stenosis or cord compression. Mild multilevel neural foraminal narrowing as described above. Electronically signed by: Villa Tello MD 02/14/2024 03:51 PM EST RP Chest X-Ray 02/21/24 07:23 IMPRESSION: Unremarkable examination. Electronically signed by: Josse Gregorio MD 02/21/2024 05:53 PM EST RP Medications Medications Current Medications Acetaminophen (Acetaminophen 325 Mg Tablet) 650 mg PO Q6H PRN PRN Reason: Headache/Pain Mild Scale (1-3) Last Admin: 02/14/24 01:05 Dose: 650 mg Al Hydroxide/Mg Hydroxide (Magnesium Hydrox/Alum Hydrox 30 Ml Oral.Susp) 30 ml PO Q6H PRN PRN Reason: Heartburn/Nausea Clonidine HCl (Clonidine Hcl 0.1 Mg Tablet) 0.05 mg PO BID [facility]; Protocol Last Admin: 02/27/24 21:00 Dose: 0.05 mg Clozapine 200 mg/ Clozapine 50 (mg) 250 mg PO DAILY@1930 [facility] Last Admin: 02/27/24 20:52 Dose: 250 mg Docusate Sodium (Docusate Sodium 100 Mg Capsule) 100 mg PO BID [facility] Last Admin: 02/27/24 20:52 Dose: 100 mg Glucose (Glucose Gel 15 Gm Gel..Gram.) 15 gm PO Q15M PRN; Protocol PRN Reason: per Hypoglycemia Standing Ord. Hydroxyzine HCl (Hydroxyzine Hcl 25 Mg Tablet) 25 mg PO Q6H PRN PRN Reason: Anxiety Last Admin: 02/20/24 20:05 Dose: 25 mg Dextrose (D10) 250 mls @ 750 mls/hr IV Q15M PRN; Protocol PRN Reason: per Hypoglycemia Standing Ord. Insulin Human Lispro (Insulin Lispro 100 Unit/Ml 3 Ml Vial) 0 unit SUBCUT DAILY [facility]; Protocol Last Admin: 02/27/24 08:48 Dose: Not Given Lorazepam (Lorazepam 1 Mg Tablet) 2 mg PO TID [facility] Last Admin: 02/27/24 20:52 Dose: 2 mg Magnesium Hydroxide (Milk Of Magnesia 30 Ml Oral.Susp) 30 ml PO DAILY PRN PRN Reason: Constipation Last Admin: 01/11/24 12:48 Dose: 30 ml Omeprazole (Omeprazole 20 Mg Capsule.Dr) 20 mg PO DAILY@0630 [facility] Last Admin: 02/27/24 05:36 Dose: 20 mg Polyethylene Glycol (Polyethylene Glycol 3350 17 Gm Powd.Pack) 17 gm PO DAILY [facility] Last Admin: 02/27/24 08:50 Dose: 17 gm Senna (Sennosides 8.6 Mg Tablet) 17.2 mg PO BEDTIME [facility] Last Admin: 02/27/24 20:53 Dose: 17.2 mg Sertraline HCl (Sertraline Hcl 100 Mg Tablet) 100 mg PO DAILY [facility] Last Admin: 02/27/24 08:48 Dose: 100 mg Tamsulosin HCl (Tamsulosin Hcl 0.4 Mg Capsule) 0.4 mg PO BEDTIME [facility] Last Admin: 02/27/24 20:52 Dose: 0.4 mg Trazodone HCl (Trazodone Hcl 50 Mg Tablet) 50 mg PO BEDTIME MRX1 PRN PRN Reason: Insomnia Last Admin: 02/24/24 21:18 Dose: 50 mg Allergies Allergies Allergy/AdvReac Type Severity Reaction Status Date / Time No Known Allergies [NKA] Allergy Unknown NONE Verified 01/05/24 11:31 Assessment & Plan Assessment & Plan (1) Schizophrenia, catatonic: Status: Acute Code(s): F20.2 - Catatonic schizophrenia Plan Patient is a 58-year-old male with a PMH significant for HTN, [id number] type 2 diabetes, BPH, schizoaffective disorder, and depression with catatonia admitted to [facility] with hospitalist consult ECT risk stratification. ECT risk stratification Patient with history of multiple prior ECT without apparent complications No apparent acute medical complaints, vitals and EKG reassuring RCRI class 1 risk, 0 points; no additional cardiac workup indicated Based on patient's history, exam, and EKG, there are no apparent contraindications for the planned procedure Plan 1. The patient remains catatonic, we will schedule for ECT next Monday. 2. Hospitalist already cleared him up after his last fall. 3. Continue one-to-one observation. 4. Continue with Clozaril and benzodiazepines. 5. ECT to be scheduled, we will need to contact his father for consent for the treatment. Finally we got consent and he had his 1st ECT on February 20 6. Ativan was increased up to 2 mg p.o. t.i.d. on February 19 02/24/24 cont plan of care cont ect some improvement noted 02/25/2024 Patient improving continue lorazepam continue ECT encourage out of bed 02/26/24 cont ect lorazepam encourage oob 02/27/24 Improved fx tolerating ect Reason for continued inpatient stay Substantial Risk for: inability to function, rapid decompensation and med/psych decompensation Time Spent With Patient Time: Total time managing care of this patient today ____ minutes.
[2024-02-28] VITALS (9 sets, daily range): BP systolic 109–155; BP diastolic 56–77; PULSE 67–100; RESP 16–18; TEMP 36–37.7; O2SAT 94–99
[2024-02-28 07:16] LABS: Glucose, Whole Blood 111 mg/dL (60-115)
--- NOTE | 2024-02-28 14:25 | HO.PSYCHPN ---
Subjective Subjective Date of Service: 02/28/24 Reason For Visit: catatonia Interim History: met with pt; discussed with team pt reports he's doing better, mood is better and feels ECT is working pt has no complaints, no requests. Staff reports pt continues to improve, is more social -pt waiting for ECT Mental Status Exam Mental Status Exam Patient Appearance: Well Grooomed and Appropriate Patient Orientation: Person, Place and Situation Level of Consciousness: Awake and Appropriate Patient Behavior: Cooperative, Passive and Good Eye Contact Mood Description: Calm and Appropriate Affect Description: Calm and Blunted (a little) Patient Cognition Impaired: Yes Ability to Follow Directions: Good Speech Pattern: Clear Hallucinations: None Delusions: Not Present Thought Process: Distracted and Slowed Thinking Thought Content: positive for [place] and positive for Poverty of Content Judgement: Poor (but improved) Diagnostics Vital Signs (24Hr): Vital Signs - 24 hr 02/27/24 20:00 02/27/24 21:00 02/28/24 08:20 Temperature 98.1 F 98.1 F Pulse Rate 71 67 Respiratory Rate 16 16 Blood Pressure 110/52 L 110/52 L 109/56 L Pulse Oximetry 97 97 Oxygen Delivery Method Room Air Room Air BMI result Body Mass Index 29.0 Labs 02/14/24 14:36 02/25/24 08:12 Labs: Laboratory Results - last 48 hr 02/27/24 02/28/24 06:31 06:57 POC Glucose 111 111 Imaging Radiology Impressions: ITS Impressions Chest X-Ray 01/07/24 13:27 IMPRESSION: Bronchial wall thickening may be infectious and/or inflammatory in etiology. Electronically signed by: Marianna Torres MD 01/07/2024 03:31 PM EDT RP Cervical Spine CT 02/13/24 14:54 IMPRESSION: Multilevel spondylosis likely representing DISH without acute fracture or trauma-related listhesis. A acute to subacute fracture of the syndesmophyte formation at C3 cannot be entire excluded. If patient's symptoms persist recommend non-IV contrast MRI cervical spine. Fleischner guidelines were followed. Electronically signed by: Mayank Irwin MD 02/13/2024 03:34 PM EST RP Head CT 02/13/24 14:54 IMPRESSION: No acute fracture, bony calvarium or acute intracranial hemorrhage. Stable brain. Electronically signed by: Mayank Irwin MD 02/13/2024 03:39 PM EST RP Hip CT 02/13/24 14:54 IMPRESSION: No acute fracture or dislocation right coxofemoral joints/right hip. Electronically signed by: Mayank Irwin MD 02/13/2024 03:48 PM EST RP Hip CT 02/13/24 14:54 IMPRESSION: No acute fracture or dislocation, left coxofemoral joint/hip. Electronically signed by: Mayank Irwin MD 02/13/2024 03:44 PM EST RP Cervical Spine MRI 02/14/24 14:41 IMPRESSION: Within the limitations of the study, 1. No definitive evidence of fracture involving the C3 syndesmophyte. 2. Multilevel cervical spondylosis without significant spinal canal stenosis or cord compression. Mild multilevel neural foraminal narrowing as described above. Electronically signed by: Villa Tello MD 02/14/2024 03:51 PM EST RP Chest X-Ray 02/21/24 07:23 IMPRESSION: Unremarkable examination. Electronically signed by: Josse Gregorio MD 02/21/2024 05:53 PM EST RP Medications Medications Current Medications Acetaminophen (Acetaminophen 325 Mg Tablet) 650 mg PO Q6H PRN PRN Reason: Headache/Pain Mild Scale (1-3) Last Admin: 02/14/24 01:05 Dose: 650 mg Al Hydroxide/Mg Hydroxide (Magnesium Hydrox/Alum Hydrox 30 Ml Oral.Susp) 30 ml PO Q6H PRN PRN Reason: Heartburn/Nausea Clonidine HCl (Clonidine Hcl 0.1 Mg Tablet) 0.05 mg PO BID [facility]; Protocol Last Admin: 02/28/24 08:50 Dose: Not Given Clozapine 200 mg/ Clozapine 50 (mg) 250 mg PO DAILY@1930 [facility] Last Admin: 02/27/24 20:52 Dose: 250 mg Docusate Sodium (Docusate Sodium 100 Mg Capsule) 100 mg PO BID [facility] Last Admin: 02/28/24 08:51 Dose: Not Given Glucose (Glucose Gel 15 Gm Gel..Gram.) 15 gm PO Q15M PRN; Protocol PRN Reason: per Hypoglycemia Standing Ord. Hydroxyzine HCl (Hydroxyzine Hcl 25 Mg Tablet) 25 mg PO Q6H PRN PRN Reason: Anxiety Last Admin: 02/20/24 20:05 Dose: 25 mg Dextrose (D10) 250 mls @ 750 mls/hr IV Q15M PRN; Protocol PRN Reason: per Hypoglycemia Standing Ord. Insulin Human Lispro (Insulin Lispro 100 Unit/Ml 3 Ml Vial) 0 unit SUBCUT DAILY [facility]; Protocol Last Admin: 02/28/24 07:40 Dose: Not Given Lorazepam (Lorazepam 1 Mg Tablet) 2 mg PO TID [facility] Last Admin: 02/28/24 08:51 Dose: Not Given Magnesium Hydroxide (Milk Of Magnesia 30 Ml Oral.Susp) 30 ml PO DAILY PRN PRN Reason: Constipation Last Admin: 01/11/24 12:48 Dose: 30 ml Omeprazole (Omeprazole 20 Mg Capsule.Dr) 20 mg PO DAILY@0630 [facility] Last Admin: 02/28/24 06:58 Dose: Not Given Polyethylene Glycol (Polyethylene Glycol 3350 17 Gm Powd.Pack) 17 gm PO DAILY [facility] Last Admin: 02/28/24 08:51 Dose: Not Given Senna (Sennosides 8.6 Mg Tablet) 17.2 mg PO BEDTIME [facility] Last Admin: 02/27/24 20:53 Dose: 17.2 mg Sertraline HCl (Sertraline Hcl 100 Mg Tablet) 100 mg PO DAILY [facility] Last Admin: 02/28/24 08:54 Dose: Not Given Tamsulosin HCl (Tamsulosin Hcl 0.4 Mg Capsule) 0.4 mg PO BEDTIME [facility] Last Admin: 02/27/24 20:52 Dose: 0.4 mg Trazodone HCl (Trazodone Hcl 50 Mg Tablet) 50 mg PO BEDTIME MRX1 PRN PRN Reason: Insomnia Last Admin: 02/24/24 21:18 Dose: 50 mg Allergies Allergies Allergy/AdvReac Type Severity Reaction Status Date / Time No Known Allergies [NKA] Allergy Unknown NONE Verified 01/05/24 11:31 Assessment & Plan Assessment & Plan (1) Schizophrenia, catatonic: Status: Acute Code(s): F20.2 - Catatonic schizophrenia Plan Patient is a 58-year-old male with a PMH significant for HTN, [id number] type 2 diabetes, BPH, schizoaffective disorder, and depression with catatonia admitted to [facility] psych with hospitalist consult ECT risk stratification. ECT risk stratification Patient with history of multiple prior ECT without apparent complications No apparent acute medical complaints, vitals and EKG reassuring RCRI class 1 risk, 0 points; no additional cardiac workup indicated Based on patient's history, exam, and EKG, there are no apparent contraindications for the planned procedure Plan 1. The patient remains catatonic, we will schedule for ECT next Monday. 2. Hospitalist already cleared him up after his last fall. 3. Continue one-to-one observation. 4. Continue with Clozaril and benzodiazepines. 5. ECT to be scheduled, we will need to contact his father for consent for the treatment. Finally we got consent and he had his 1st ECT on February 20 6. Ativan was increased up to 2 mg p.o. t.i.d. on February 19 02/24/24 cont plan of care cont ect some improvement noted 02/25/2024 Patient improving continue lorazepam continue ECT encourage out of bed 02/26/24 cont ect lorazepam encourage oob Patient educated on: diagnosis and ECT Informed Consent: understands Reason for continued inpatient stay Substantial Risk for: rapid decompensation Time Spent With Patient Time: Total time managing care of this patient today ____ minutes.
--- NOTE | 2024-02-28 15:13 | MHC.SHP ---
Pre-Procedural Eval Section A - 24 Hr Update-Section A only Date of Service: 02/28/24 The patient is an INPATIENT: Yes Changes since office visit: No Cold of Flu in the past 2 weeks, No New Medical Problems, No Changes in Medication and No Patient answered all questions The patient has been examined within 24 hours of the surgical procedure. The History & Physical has been completed within 30 days and I have reviewed it.: Yes Section B - Complete if H&P > 30 days Chief Complaint: catatonia Allergies: Allergies Allergy/AdvReac Type Severity Reaction Status Date / Time No Known Allergies [NKA] Allergy Unknown NONE Verified 01/05/24 11:31 Plan I have reviewed the history and physical and performed a pertinent physical examination on my patient. No changes have occurred unless specified. Time Spent With Patient Time: Total time managing care of this patient today ____ minutes.
--- NOTE | 2024-02-28 15:26 | P.CONAN_ITS ---
[facility] Active Problems Active Problems: All Active Problems Schizophrenia, catatonic (Acute) Schizoaffective disorder (Acute) Fall (Acute) Pre-op evaluation (Acute) Catatonia (Acute) Nocturnal hypoxia (Acute) Sleep apnea (Acute) Schizoaffective disorder, depressive type (Acute) Benign prostate hyperplasia (Acute) Essential hypertension (Acute) Right hip pain (Acute) Essential (primary) hypertension (Acute) Diabetes mellitus (Acute) Past Medical History Medical History Schizophrenia, catatonic Mild sleep apnea Nocturnal hypoxia Routine medical exam Joint inflammation of right hand and wrist Status post fall Adult general medical exam Screening for colon cancer Screening for prostate cancer Cough BPH (benign prostatic hyperplasia) Essential (primary) hypertension Diabetes mellitus Family History Family History Mother Cancer Father Kidney agenesis Family history of problems with anesthesia: No Surgical History Surgical History History of colonoscopy (~06/15/21) History of tooth extraction History of root canal procedure History of Problems with Anesthesia: No Social History Social History Household Members: None Housing: Apartment Do you presently have visiting nurse or other home services: Yes Unable to assess alcohol history related to: Unable to respond Alcohol intake: former Comment: 1:1 Patient Tobacco Use Status: Never used Tobacco e-Cigarette/Vaping Use: Never Used Second Hand Smoke Exposure: No service: No Current occupational status: employed Sexual orientation: Straight/Heterosexual Cognitive needs: No Hearing needs: No Vision needs: No Meds Allergies Allergy/AdvReac Type Severity Reaction Status Date / Time No Known Allergies [NKA] Allergy Unknown NONE Verified 01/05/24 11:31 Active Medications: Current Medications Acetaminophen (Acetaminophen 325 Mg Tablet) 650 mg PO Q6H PRN PRN Reason: Headache/Pain Mild Scale (1-3) Last Admin: 02/14/24 01:05 Dose: 650 mg Al Hydroxide/Mg Hydroxide (Magnesium Hydrox/Alum Hydrox 30 Ml Oral.Susp) 30 ml PO Q6H PRN PRN Reason: Heartburn/Nausea Clonidine HCl (Clonidine Hcl 0.1 Mg Tablet) 0.05 mg PO BID KRISTIN; Protocol Last Admin: 02/28/24 08:50 Dose: Not Given Clozapine 200 mg/ Clozapine 50 (mg) 250 mg PO DAILY@1930 [facility] Last Admin: 02/27/24 20:52 Dose: 250 mg Docusate Sodium (Docusate Sodium 100 Mg Capsule) 100 mg PO BID [facility] Last Admin: 02/28/24 08:51 Dose: Not Given Glucose (Glucose Gel 15 Gm Gel..Gram.) 15 gm PO Q15M PRN; Protocol PRN Reason: per Hypoglycemia Standing Ord. Hydroxyzine HCl (Hydroxyzine Hcl 25 Mg Tablet) 25 mg PO Q6H PRN PRN Reason: Anxiety Last Admin: 02/20/24 20:05 Dose: 25 mg Dextrose (D10) 250 mls @ 750 mls/hr IV Q15M PRN; Protocol PRN Reason: per Hypoglycemia Standing Ord. Insulin Human Lispro (Insulin Lispro 100 Unit/Ml 3 Ml Vial) 0 unit SUBCUT DAILY [facility]; Protocol Last Admin: 02/28/24 07:40 Dose: Not Given Lorazepam (Lorazepam 1 Mg Tablet) 2 mg PO TID [facility] Last Admin: 02/28/24 08:51 Dose: Not Given Magnesium Hydroxide (Milk Of Magnesia 30 Ml Oral.Susp) 30 ml PO DAILY PRN PRN Reason: Constipation Last Admin: 01/11/24 12:48 Dose: 30 ml Omeprazole (Omeprazole 20 Mg Capsule.Dr) 20 mg PO DAILY@0630 [facility] Last Admin: 02/28/24 06:58 Dose: Not Given Polyethylene Glycol (Polyethylene Glycol 3350 17 Gm Powd.Pack) 17 gm PO DAILY [facility] Last Admin: 02/28/24 08:51 Dose: Not Given Senna (Sennosides 8.6 Mg Tablet) 17.2 mg PO BEDTIME [facility] Last Admin: 02/27/24 20:53 Dose: 17.2 mg Sertraline HCl (Sertraline Hcl 100 Mg Tablet) 100 mg PO DAILY [facility] Last Admin: 02/28/24 08:54 Dose: Not Given Sertraline HCl (Sertraline Hcl 100 Mg Tablet) 100 mg PO ONCE ONE Stop: 02/28/24 17:01 Tamsulosin HCl (Tamsulosin Hcl 0.4 Mg Capsule) 0.4 mg PO BEDTIME [facility] Last Admin: 02/27/24 20:52 Dose: 0.4 mg Trazodone HCl (Trazodone Hcl 50 Mg Tablet) 50 mg PO BEDTIME MRX1 PRN PRN Reason: Insomnia Last Admin: 02/24/24 21:18 Dose: 50 mg Home Medications ?Medication ?Instructions ?Recorded ?Confirmed ?Last Taken ?Type aripiprazole 5 mg tablet 5 mg PO BEDTIME 01/05/24 01/05/24 01/03/24 History lithium carbonate 300 mg capsule 300 mg PO BID 01/05/24 01/05/24 01/05/24 History omeprazole 20 mg capsule,delayed 20 mg PO DAILY@0630 01/05/24 01/05/24 01/05/24 History release polyethylene glycol 3350 17 17 g PO DAILY 01/05/24 01/05/24 01/05/24 History gram/dose oral powder (Miralax) sennosides 8.6 mg tablet (senna) 17.2 mg PO BEDTIME 01/05/24 01/05/24 01/05/24 History tamsulosin 0.4 mg capsule 0.4 mg PO BEDTIME 01/05/24 01/05/24 01/03/24 History Exam Height,Weight and Vital Signs: Height 5 ft 10 in Weight 91.626 kg Last Vital Signs Temp 98.1 F 02/28/24 08:20 Pulse 67 02/28/24 08:20 Resp 16 02/28/24 08:20 BP 109/56 L 02/28/24 08:20 Pulse Ox 97 02/28/24 08:20 O2 Del Method Room Air 02/28/24 08:20 O2 Flow Rate 2 02/26/24 15:30 Pertinent Lab Results Pertinent Lab Results: Laboratory Tests 01/05/24 01/05/24 01/05/24 11:49 15:51 18:36 WBC 8.9 RBC 4.82 Hgb 13.9 L Hct 42.6 MCV 88.4 MCH 28.8 MCHC 32.6 RDW 13.2 Plt Count 169 MPV 11.1 Immature Gran % (Auto) 0.6 H Neut % (Auto) 79.4 H Lymph % (Auto) 13.1 L [place] % (Auto) 6.8 Eos % (Auto) 0.0 Baso % (Auto) 0.1 Lymph # (Auto) 1.2 [place] # (Auto) 0.6 Eos # (Auto) 0.0 Baso # (Auto) 0.0 Abs Immat Gran (auto) 0.05 H Absolute Neuts (auto) 7.1 Absolute Nucleated RBC 0.000 Nucleated RBC % (auto) 0.0 Sodium 141 Potassium 4.6 Chloride 106 Carbon Dioxide 27 Anion Gap 13 BUN 23 H Creatinine 1.42 H Estim Creat Clear Calc 64.4 Estimated GFR 51 POC Glucose 90 Random Glucose 82 Fasting Glucose Estimat Average Glucose Hemoglobin A1c % Calcium 9.2 Total Bilirubin 0.6 AST 13 ALT 9 Alkaline Phosphatase 64 Ammonia Total Protein 7.0 Albumin 4.1 TSH Salicylates < 5.0 L Acetaminophen < 3 Clozapine Norclozapine [place] 1.19 Ethyl Alcohol < 10 COVID-19 ([facility]) Negative COVID-19 iMICROQ See Note 01/07/24 01/12/24 01/14/24 07:36 08:25 08:35 WBC RBC Hgb Hct MCV MCH MCHC RDW Plt Count MPV Immature Gran % (Auto) Neut % (Auto) Lymph % (Auto) [place] % (Auto) Eos % (Auto) Baso % (Auto) Lymph # (Auto) [place] # (Auto) Eos # (Auto) Baso # (Auto) Abs Immat Gran (auto) Absolute Neuts (auto) 4.9 Absolute Nucleated RBC Nucleated RBC % (auto) Sodium 142 Potassium 4.4 Chloride 106 Carbon Dioxide 25 Anion Gap 15 BUN 23 H Creatinine 1.39 1.55 H Estim Creat Clear Calc 65.6 58.8 Estimated GFR 52 46 POC Glucose Random Glucose 132 H Fasting Glucose Estimat Average Glucose Hemoglobin A1c % Calcium 9.2 Total Bilirubin AST ALT Alkaline Phosphatase Ammonia Total Protein Albumin TSH Salicylates Acetaminophen Clozapine Norclozapine [place] 0.90 Ethyl Alcohol COVID-19 ([facility]) COVID-ip.access 01/16/24 01/17/24 01/19/24 10:15 08:14 08:50 WBC RBC Hgb Hct MCV MCH MCHC RDW Plt Count MPV Immature Gran % (Auto) Neut % (Auto) Lymph % (Auto) [place] % (Auto) Eos % (Auto) Baso % (Auto) Lymph # (Auto) [place] # (Auto) Eos # (Auto) Baso # (Auto) Abs Immat Gran (auto) Absolute Neuts (auto) 5.3 Absolute Nucleated RBC Nucleated RBC % (auto) Sodium 144 Potassium 4.3 Chloride 109 H Carbon Dioxide 29 Anion Gap 10 L BUN 24 H Creatinine 1.37 Estim Creat Clear Calc 66.5 Estimated GFR 53 POC Glucose 88 Random Glucose Fasting Glucose 90 Estimat Average Glucose 103 Hemoglobin A1c % 5.2 Calcium 9.4 Total Bilirubin 0.4 AST 15 ALT 12 Alkaline Phosphatase 66 Ammonia Total Protein 6.6 Albumin 3.9 TSH 0.78 Salicylates Acetaminophen Clozapine 353 Norclozapine 196 [place] 0.65 0.89 Ethyl Alcohol COVID-19 ([facility]) COVID-19 iMICROQ 01/21/24 01/21/24 01/22/24 07:36 12:20 16:09 WBC RBC Hgb Hct MCV MCH MCHC RDW Plt Count MPV Immature Gran % (Auto) Neut % (Auto) Lymph % (Auto) [place] % (Auto) Eos % (Auto) Baso % (Auto) Lymph # (Auto) [place] # (Auto) Eos # (Auto) Baso # (Auto) Abs Immat Gran (auto) Absolute Neuts (auto) Absolute Nucleated RBC Nucleated RBC % (auto) Sodium 141 141 Potassium 3.8 3.8 Chloride 106 107 Carbon Dioxide 26 28 Anion Gap 13 10 L BUN 31 H 29 H Creatinine 1.64 H 1.76 H 1.67 H Estim Creat Clear Calc 55.4 51.6 54.4 Estimated GFR 43 40 42 POC Glucose Random Glucose 173 H 96 Fasting Glucose Estimat Average Glucose Hemoglobin A1c % Calcium 9.3 9.0 Total Bilirubin 0.5 0.4 AST 15 18 ALT 15 10 Alkaline Phosphatase 65 55 Ammonia Total Protein 6.7 6.3 L Albumin 4.0 3.8 TSH Salicylates Acetaminophen Clozapine Norclozapine [place] 1.20 Ethyl Alcohol COVID-19 ([facility]) COVID-19 iMICROQ 01/23/24 01/24/24 01/24/24 08:05 07:46 16:29 WBC RBC Hgb Hct MCV MCH MCHC RDW Plt Count MPV Immature Gran % (Auto) Neut % (Auto) Lymph % (Auto) [place] % (Auto) Eos % (Auto) Baso % (Auto) Lymph # (Auto) [place] # (Auto) Eos # (Auto) Baso # (Auto) Abs Immat Gran (auto) Absolute Neuts (auto) Absolute Nucleated RBC Nucleated RBC % (auto) Sodium 144 144 Potassium 4.0 4.1 Chloride 107 110 H Carbon Dioxide 29 28 Anion Gap 12 10 L BUN 25 H 22 H Creatinine 1.29 1.37 Estim Creat Clear Calc 70.4 66.3 Estimated GFR 57 53 POC Glucose 106 Random Glucose 91 101 Fasting Glucose Estimat Average Glucose Hemoglobin A1c % Calcium 8.9 8.9 Total Bilirubin AST ALT Alkaline Phosphatase Ammonia Total Protein Albumin TSH Salicylates Acetaminophen Clozapine Norclozapine [place] Ethyl Alcohol COVID-19 ([facility]) COVID-19 iMICROQ 01/24/24 01/25/24 01/25/24 19:54 06:36 12:42 WBC RBC Hgb Hct MCV MCH MCHC RDW Plt Count MPV Immature Gran % (Auto) Neut % (Auto) Lymph % (Auto) [place] % (Auto) Eos % (Auto) Baso % (Auto) Lymph # (Auto) [place] # (Auto) Eos # (Auto) Baso # (Auto) Abs Immat Gran (auto) Absolute Neuts (auto) Absolute Nucleated RBC Nucleated RBC % (auto) Sodium Potassium Chloride Carbon Dioxide Anion Gap BUN Creatinine Estim Creat Clear Calc Estimated GFR POC Glucose 105 110 159 H Random Glucose Fasting Glucose Estimat Average Glucose Hemoglobin A1c % Calcium Total Bilirubin AST ALT Alkaline Phosphatase Ammonia Total Protein Albumin TSH Salicylates Acetaminophen Clozapine Norclozapine [place] Ethyl Alcohol COVID-19 ([facility]) COVIDFilterSure 01/25/24 01/25/24 01/26/24 16:48 21:13 06:33 WBC RBC Hgb Hct MCV MCH MCHC RDW Plt Count MPV Immature Gran % (Auto) Neut % (Auto) Lymph % (Auto) [place] % (Auto) Eos % (Auto) Baso % (Auto) Lymph # (Auto) [place] # (Auto) Eos # (Auto) Baso # (Auto) Abs Immat Gran (auto) Absolute Neuts (auto) Absolute Nucleated RBC Nucleated RBC % (auto) Sodium Potassium Chloride Carbon Dioxide Anion Gap BUN Creatinine Estim Creat Clear Calc Estimated GFR POC Glucose 84 118 H 101 Random Glucose Fasting Glucose Estimat Average Glucose Hemoglobin A1c % Calcium Total Bilirubin AST ALT Alkaline Phosphatase Ammonia Total Protein Albumin TSH Salicylates Acetaminophen Clozapine Norclozapine [place] Ethyl Alcohol COVID-19 ([facility]) COVID-19 iMICROQ 01/26/24 01/26/24 01/26/24 07:56 11:32 16:33 WBC RBC Hgb Hct MCV MCH MCHC RDW Plt Count MPV Immature Gran % (Auto) Neut % (Auto) Lymph % (Auto) [place] % (Auto) Eos % (Auto) Baso % (Auto) Lymph # (Auto) [place] # (Auto) Eos # (Auto) Baso # (Auto) Abs Immat Gran (auto) Absolute Neuts (auto) 3.4 Absolute Nucleated RBC Nucleated RBC % (auto) Sodium Potassium Chloride Carbon Dioxide Anion Gap BUN Creatinine Estim Creat Clear Calc Estimated GFR POC Glucose 97 83 Random Glucose Fasting Glucose Estimat Average Glucose Hemoglobin A1c % Calcium Total Bilirubin AST ALT Alkaline Phosphatase Ammonia Total Protein Albumin TSH Salicylates Acetaminophen Clozapine Norclozapine [place] Ethyl Alcohol COVID-19 ([facility]) COVID-19 Review Trackers Com 01/26/24 01/27/24 01/27/24 21:18 06:50 11:13 WBC RBC Hgb Hct MCV MCH MCHC RDW Plt Count MPV Immature Gran % (Auto) Neut % (Auto) Lymph % (Auto) [place] % (Auto) Eos % (Auto) Baso % (Auto) Lymph # (Auto) [place] # (Auto) Eos # (Auto) Baso # (Auto) Abs Immat Gran (auto) Absolute Neuts (auto) Absolute Nucleated RBC Nucleated RBC % (auto) Sodium Potassium Chloride Carbon Dioxide Anion Gap BUN Creatinine Estim Creat Clear Calc Estimated GFR POC Glucose 101 108 99 Random Glucose Fasting Glucose Estimat Average Glucose Hemoglobin A1c % Calcium Total Bilirubin AST ALT Alkaline Phosphatase Ammonia Total Protein Albumin TSH Salicylates Acetaminophen Clozapine Norclozapine [place] Ethyl Alcohol COVID-19 ([facility]) COVID-19 Review Trackers Com 01/27/24 01/27/24 01/28/24 16:36 21:31 06:25 WBC RBC Hgb Hct MCV MCH MCHC RDW Plt Count MPV Immature Gran % (Auto) Neut % (Auto) Lymph % (Auto) [place] % (Auto) Eos % (Auto) Baso % (Auto) Lymph # (Auto) [place] # (Auto) Eos # (Auto) Baso # (Auto) Abs Immat Gran (auto) Absolute Neuts (auto) Absolute Nucleated RBC Nucleated RBC % (auto) Sodium Potassium Chloride Carbon Dioxide Anion Gap BUN Creatinine Estim Creat Clear Calc Estimated GFR POC Glucose 80 99 111 Random Glucose Fasting Glucose Estimat Average Glucose Hemoglobin A1c % Calcium Total Bilirubin AST ALT Alkaline Phosphatase Ammonia Total Protein Albumin TSH Salicylates Acetaminophen Clozapine Norclozapine [place] Ethyl Alcohol COVID-19 ([facility]) COVID-19 Clin Com 01/28/24 01/28/24 01/28/24 07:21 11:32 19:53 WBC RBC Hgb Hct MCV MCH MCHC RDW Plt Count MPV Immature Gran % (Auto) Neut % (Auto) Lymph % (Auto) [place] % (Auto) Eos % (Auto) Baso % (Auto) Lymph # (Auto) [place] # (Auto) Eos # (Auto) Baso # (Auto) Abs Immat Gran (auto) Absolute Neuts (auto) Absolute Nucleated RBC Nucleated RBC % (auto) Sodium Potassium Chloride Carbon Dioxide Anion Gap BUN Creatinine 1.48 H Estim Creat Clear Calc 61.8 Estimated GFR 48 POC Glucose 93 123 H Random Glucose Fasting Glucose Estimat Average Glucose Hemoglobin A1c % Calcium Total Bilirubin AST ALT Alkaline Phosphatase Ammonia Total Protein Albumin TSH Salicylates Acetaminophen Clozapine Norclozapine [place] Ethyl Alcohol COVID-19 ([facility]) COVID-19 Clin Com 01/29/24 01/29/24 01/30/24 06:32 19:56 06:34 WBC RBC Hgb Hct MCV MCH MCHC RDW Plt Count MPV Immature Gran % (Auto) Neut % (Auto) Lymph % (Auto) [place] % (Auto) Eos % (Auto) Baso % (Auto) Lymph # (Auto) [place] # (Auto) Eos # (Auto) Baso # (Auto) Abs Immat Gran (auto) Absolute Neuts (auto) Absolute Nucleated RBC Nucleated RBC % (auto) Sodium Potassium Chloride Carbon Dioxide Anion Gap BUN Creatinine Estim Creat Clear Calc Estimated GFR POC Glucose 109 148 H 109 Random Glucose Fasting Glucose Estimat Average Glucose Hemoglobin A1c % Calcium Total Bilirubin AST ALT Alkaline Phosphatase Ammonia Total Protein Albumin TSH Salicylates Acetaminophen Clozapine Norclozapine [place] Ethyl Alcohol COVID-19 ([facility]) COVID-19 Clin Com 01/31/24 02/01/24 02/02/24 06:35 06:09 06:19 WBC RBC Hgb Hct MCV MCH MCHC RDW Plt Count MPV Immature Gran % (Auto) Neut % (Auto) Lymph % (Auto) [place] % (Auto) Eos % (Auto) Baso % (Auto) Lymph # (Auto) [place] # (Auto) Eos # (Auto) Baso # (Auto) Abs Immat Gran (auto) Absolute Neuts (auto) Absolute Nucleated RBC Nucleated RBC % (auto) Sodium Potassium Chloride Carbon Dioxide Anion Gap BUN Creatinine Estim Creat Clear Calc Estimated GFR POC Glucose 98 101 102 Random Glucose Fasting Glucose Estimat Average Glucose Hemoglobin A1c % Calcium Total Bilirubin AST ALT Alkaline Phosphatase Ammonia Total Protein Albumin TSH Salicylates Acetaminophen Clozapine Norclozapine [place] Ethyl Alcohol COVID-19 ([facility]) COVID-19 Review Trackers Com 02/02/24 02/03/24 02/04/24 08:25 06:37 06:46 WBC RBC Hgb Hct MCV MCH MCHC RDW Plt Count MPV Immature Gran % (Auto) Neut % (Auto) Lymph % (Auto) [place] % (Auto) Eos % (Auto) Baso % (Auto) Lymph # (Auto) [place] # (Auto) Eos # (Auto) Baso # (Auto) Abs Immat Gran (auto) Absolute Neuts (auto) 3.3 Absolute Nucleated RBC Nucleated RBC % (auto) Sodium Potassium Chloride Carbon Dioxide Anion Gap BUN Creatinine Estim Creat Clear Calc Estimated GFR POC Glucose 95 98 Random Glucose Fasting Glucose Estimat Average Glucose Hemoglobin A1c % Calcium Total Bilirubin AST ALT Alkaline Phosphatase Ammonia Total Protein Albumin TSH Salicylates Acetaminophen Clozapine Norclozapine [place] Ethyl Alcohol COVID-19 ([facility]) [employer]19 iMICROQ 02/04/24 02/05/24 02/06/24 07:17 06:37 06:46 WBC RBC Hgb Hct MCV MCH MCHC RDW Plt Count MPV Immature Gran % (Auto) Neut % (Auto) Lymph % (Auto) [place] % (Auto) Eos % (Auto) Baso % (Auto) Lymph # (Auto) [place] # (Auto) Eos # (Auto) Baso # (Auto) Abs Immat Gran (auto) Absolute Neuts (auto) Absolute Nucleated RBC Nucleated RBC % (auto) Sodium Potassium Chloride Carbon Dioxide Anion Gap BUN Creatinine 1.32 Estim Creat Clear Calc 69.3 Estimated GFR 55 POC Glucose 94 103 Random Glucose Fasting Glucose Estimat Average Glucose Hemoglobin A1c % Calcium Total Bilirubin AST ALT Alkaline Phosphatase Ammonia Total Protein Albumin TSH Salicylates Acetaminophen Clozapine Norclozapine [place] Ethyl Alcohol COVID-19 ([facility]) COVID-19 iMICROQ 02/07/24 02/08/24 02/09/24 06:57 06:32 06:40 WBC RBC Hgb Hct MCV MCH MCHC RDW Plt Count MPV Immature Gran % (Auto) Neut % (Auto) Lymph % (Auto) [place] % (Auto) Eos % (Auto) Baso % (Auto) Lymph # (Auto) [place] # (Auto) Eos # (Auto) Baso # (Auto) Abs Immat Gran (auto) Absolute Neuts (auto) Absolute Nucleated RBC Nucleated RBC % (auto) Sodium Potassium Chloride Carbon Dioxide Anion Gap BUN Creatinine Estim Creat Clear Calc Estimated GFR POC Glucose 118 H 117 H 121 H Random Glucose Fasting Glucose Estimat Average Glucose Hemoglobin A1c % Calcium Total Bilirubin AST ALT Alkaline Phosphatase Ammonia Total Protein Albumin TSH Salicylates Acetaminophen Clozapine Norclozapine [place] Ethyl Alcohol COVID-19 ([facility]) COVID-19 Review Trackers Com 02/09/24 02/10/24 02/11/24 07:57 06:31 06:50 WBC RBC Hgb Hct MCV MCH MCHC RDW Plt Count MPV Immature Gran % (Auto) Neut % (Auto) Lymph % (Auto) [place] % (Auto) Eos % (Auto) Baso % (Auto) Lymph # (Auto) [place] # (Auto) Eos # (Auto) Baso # (Auto) Abs Immat Gran (auto) Absolute Neuts (auto) 3.9 Absolute Nucleated RBC Nucleated RBC % (auto) Sodium Potassium Chloride Carbon Dioxide Anion Gap BUN Creatinine Estim Creat Clear Calc Estimated GFR POC Glucose 110 114 Random Glucose Fasting Glucose Estimat Average Glucose Hemoglobin A1c % Calcium Total Bilirubin AST ALT Alkaline Phosphatase Ammonia Total Protein Albumin TSH Salicylates Acetaminophen Clozapine Norclozapine [place] Ethyl Alcohol COVID-19 ([facility]) COVID-19 Review Trackers Com 02/11/24 02/12/24 02/12/24 10:16 06:36 10:14 WBC RBC Hgb Hct MCV MCH MCHC RDW Plt Count MPV Immature Gran % (Auto) Neut % (Auto) Lymph % (Auto) [place] % (Auto) Eos % (Auto) Baso % (Auto) Lymph # (Auto) [place] # (Auto) Eos # (Auto) Baso # (Auto) Abs Immat Gran (auto) Absolute Neuts (auto) Absolute Nucleated RBC Nucleated RBC % (auto) Sodium Potassium Chloride Carbon Dioxide Anion Gap BUN Creatinine 1.21 Estim Creat Clear Calc 75.8 Estimated GFR > 60 POC Glucose 130 H 102 Random Glucose Fasting Glucose Estimat Average Glucose Hemoglobin A1c % Calcium Total Bilirubin AST ALT Alkaline Phosphatase Ammonia Total Protein Albumin TSH Salicylates Acetaminophen Clozapine Norclozapine [place] Ethyl Alcohol COVID-19 ([facility]) COVID-19 Review Trackers Com 02/13/24 02/13/24 02/13/24 07:10 14:35 19:44 WBC RBC Hgb Hct MCV MCH MCHC RDW Plt Count MPV Immature Gran % (Auto) Neut % (Auto) Lymph % (Auto) [place] % (Auto) Eos % (Auto) Baso % (Auto) Lymph # (Auto) [place] # (Auto) Eos # (Auto) Baso # (Auto) Abs Immat Gran (auto) Absolute Neuts (auto) Absolute Nucleated RBC Nucleated RBC % (auto) Sodium Potassium Chloride Carbon Dioxide Anion Gap BUN Creatinine Estim Creat Clear Calc Estimated GFR POC Glucose 115 89 105 Random Glucose Fasting Glucose Estimat Average Glucose Hemoglobin A1c % Calcium Total Bilirubin AST ALT Alkaline Phosphatase Ammonia Total Protein Albumin TSH Salicylates Acetaminophen Clozapine Norclozapine [place] Ethyl Alcohol COVID-19 ([facility]) COVID-19 iMICROQ 02/14/24 02/14/24 02/15/24 06:30 14:36 06:36 WBC 6.9 RBC 4.34 L Hgb 12.5 L Hct 37.5 L MCV 86.4 MCH 28.8 MCHC 33.3 RDW 12.7 Plt Count 130 L MPV 11.0 Immature Gran % (Auto) 0.3 Neut % (Auto) 71.4 Lymph % (Auto) 19.9 L [place] % (Auto) 8.3 Eos % (Auto) 0.0 Baso % (Auto) 0.1 Lymph # (Auto) 1.4 [place] # (Auto) 0.6 Eos # (Auto) 0.0 Baso # (Auto) 0.0 Abs Immat Gran (auto) 0.02 Absolute Neuts (auto) 4.9 Absolute Nucleated RBC 0.000 Nucleated RBC % (auto) 0.0 Sodium 144 Potassium 3.8 Chloride 110 H Carbon Dioxide 23 Anion Gap 15 BUN 21 H Creatinine 1.30 Estim Creat Clear Calc 70.5 Estimated GFR 56 POC Glucose 111 99 Random Glucose Fasting Glucose 99 Estimat Average Glucose Hemoglobin A1c % Calcium 9.1 Total Bilirubin 0.5 AST 26 ALT 13 Alkaline Phosphatase 63 Ammonia 39 Total Protein 6.4 L Albumin 3.8 TSH 0.92 Salicylates Acetaminophen Clozapine Norclozapine [place] Ethyl Alcohol COVID-19 ([facility]) COVID-19 Review Trackers Com 02/16/24 02/16/24 02/16/24 06:34 07:03 10:11 WBC RBC Hgb Hct MCV MCH MCHC RDW Plt Count MPV Immature Gran % (Auto) Neut % (Auto) Lymph % (Auto) [place] % (Auto) Eos % (Auto) Baso % (Auto) Lymph # (Auto) [place] # (Auto) Eos # (Auto) Baso # (Auto) Abs Immat Gran (auto) Absolute Neuts (auto) 4.5 Absolute Nucleated RBC Nucleated RBC % (auto) Sodium Potassium Chloride Carbon Dioxide Anion Gap BUN Creatinine Estim Creat Clear Calc Estimated GFR POC Glucose 67 78 Random Glucose Fasting Glucose Estimat Average Glucose Hemoglobin A1c % Calcium Total Bilirubin AST ALT Alkaline Phosphatase Ammonia Total Protein Albumin TSH Salicylates Acetaminophen Clozapine Norclozapine [place] Ethyl Alcohol COVID-19 ([facility]) [employer] 02/17/24 02/18/24 02/18/24 06:24 06:45 08:19 WBC RBC Hgb Hct MCV MCH MCHC RDW Plt Count MPV Immature Gran % (Auto) Neut % (Auto) Lymph % (Auto) [place] % (Auto) Eos % (Auto) Baso % (Auto) Lymph # (Auto) [place] # (Auto) Eos # (Auto) Baso # (Auto) Abs Immat Gran (auto) Absolute Neuts (auto) Absolute Nucleated RBC Nucleated RBC % (auto) Sodium Potassium Chloride Carbon Dioxide Anion Gap BUN Creatinine 1.48 H Estim Creat Clear Calc 61.2 Estimated GFR 48 POC Glucose 88 114 Random Glucose Fasting Glucose Estimat Average Glucose Hemoglobin A1c % Calcium Total Bilirubin AST ALT Alkaline Phosphatase Ammonia Total Protein Albumin TSH Salicylates Acetaminophen Clozapine Norclozapine [place] Ethyl Alcohol COVID-19 ([facility]) [email or web address].access 02/19/24 02/20/24 02/21/24 06:40 06:33 06:48 WBC RBC Hgb Hct MCV MCH MCHC RDW Plt Count MPV Immature Gran % (Auto) Neut % (Auto) Lymph % (Auto) [place] % (Auto) Eos % (Auto) Baso % (Auto) Lymph # (Auto) [place] # (Auto) Eos # (Auto) Baso # (Auto) Abs Immat Gran (auto) Absolute Neuts (auto) Absolute Nucleated RBC Nucleated RBC % (auto) Sodium Potassium Chloride Carbon Dioxide Anion Gap BUN Creatinine Estim Creat Clear Calc Estimated GFR POC Glucose 111 117 H 134 H Random Glucose Fasting Glucose Estimat Average Glucose Hemoglobin A1c % Calcium Total Bilirubin AST ALT Alkaline Phosphatase Ammonia Total Protein Albumin TSH Salicylates Acetaminophen Clozapine Norclozapine [place] Ethyl Alcohol COVID-19 ([facility]) COVID-19 iMICROQ 02/22/24 02/23/24 02/24/24 06:22 08:01 06:52 WBC RBC Hgb Hct MCV MCH MCHC RDW Plt Count MPV Immature Gran % (Auto) Neut % (Auto) Lymph % (Auto) [place] % (Auto) Eos % (Auto) Baso % (Auto) Lymph # (Auto) [place] # (Auto) Eos # (Auto) Baso # (Auto) Abs Immat Gran (auto) Absolute Neuts (auto) 3.9 Absolute Nucleated RBC Nucleated RBC % (auto) Sodium Potassium Chloride Carbon Dioxide Anion Gap BUN Creatinine Estim Creat Clear Calc Estimated GFR POC Glucose 121 H 123 H Random Glucose Fasting Glucose Estimat Average Glucose Hemoglobin A1c % Calcium Total Bilirubin AST ALT Alkaline Phosphatase Ammonia Total Protein Albumin TSH Salicylates Acetaminophen Clozapine Norclozapine [place] Ethyl Alcohol COVID-19 ([facility]) [email or web address] 02/25/24 02/25/24 02/26/24 07:00 08:12 06:23 WBC RBC Hgb Hct MCV MCH MCHC RDW Plt Count MPV Immature Gran % (Auto) Neut % (Auto) Lymph % (Auto) [place] % (Auto) Eos % (Auto) Baso % (Auto) Lymph # (Auto) [place] # (Auto) Eos # (Auto) Baso # (Auto) Abs Immat Gran (auto) Absolute Neuts (auto) Absolute Nucleated RBC Nucleated RBC % (auto) Sodium Potassium Chloride Carbon Dioxide Anion Gap BUN Creatinine 1.32 Estim Creat Clear Calc 67.7 Estimated GFR 55 POC Glucose 124 H 106 Random Glucose Fasting Glucose Estimat Average Glucose Hemoglobin A1c % Calcium Total Bilirubin AST ALT Alkaline Phosphatase Ammonia Total Protein Albumin TSH Salicylates Acetaminophen Clozapine Norclozapine [place] Ethyl Alcohol COVID-19 ([facility]) [employer] 02/26/24 02/27/24 02/28/24 13:44 06:31 06:57 WBC RBC Hgb Hct MCV MCH MCHC RDW Plt Count MPV Immature Gran % (Auto) Neut % (Auto) Lymph % (Auto) [place] % (Auto) Eos % (Auto) Baso % (Auto) Lymph # (Auto) [place] # (Auto) Eos # (Auto) Baso # (Auto) Abs Immat Gran (auto) Absolute Neuts (auto) Absolute Nucleated RBC Nucleated RBC % (auto) Sodium Potassium Chloride Carbon Dioxide Anion Gap BUN Creatinine Estim Creat Clear Calc Estimated GFR POC Glucose 86 111 111 Random Glucose Fasting Glucose Estimat Average Glucose Hemoglobin A1c % Calcium Total Bilirubin AST ALT Alkaline Phosphatase Ammonia Total Protein Albumin TSH Salicylates Acetaminophen Clozapine Norclozapine [place] Ethyl Alcohol COVID-19 ([facility]) COVID-19 Clin Com Airway Mallampati Class: II TM Dist: >3cm Neck ROM: Full Heart: rrr Lungs: cta Assessment and Plan Assessment Anesthesia Assessment: Anesthesia Plan Discussed and Chart Reviewed Final Anesthetic Review Family History of Problems with Anesthesia: No History of Problems with Anesthesia: No NPO: Yes ASA Class: III Final Preanesthetic Review: No Changes in Pt Med Stat, Meds/Allgs Chart Reviewed and Consent Obtained/Reviewed Patient Risk: Intermediate Procedure Risk: Intermediate Anesthetic Plan Anesthetic Plan: GA Disposition: Standard PACU
--- NOTE | 2024-02-28 15:40 | HO.ECTPROC ---
ECT Procedure Note Diagnosis/Treatment Date of Service: 02/28/24 Diagnosis: Catatonia and Schizoaffective Disorder Previous ECT Date: 02/26/24 Current Treatment Number: 3 Treatment: Series Interval Clinical Notes: The patient is more talkative, responding to questions with simple yes or no, but more interactive. No side effects with the previious ECT. ECT done as usual, no complications. Time: Total time managing care of this patient today ____ minutes. ECT Settings Device: THYMATRON DGx Electrode Placement: Bitemporal Program/Pulse Width: 0.50 Energy Percent: 100 Seizure Duration By EEG (in seconds): 56 By Motor Observation (in seconds): 22 Medications Administration General Anesthetic: Etomidate (18) Muscle Relaxant: Succinylcholine (120) Ancillary Medications Miscillaneous Medications: Other (Ativan 2 mg IVP after ECT) Airway Management Airway Management: Bag Mask Ventilation Treatment Recommendations No Changes Recommended: No change Pt Tolerated Procedure w/o Issue: Yes
[2024-02-28] MEDS: LORazepam 2 MG/ML VIAL IVPUSH (15:50)
[2024-02-28] MEDS: Sertraline HCL 100 MG TABLET PO (17:25)
[2024-02-28] MEDS: Docusate Sodium 100 MG CAPSULE PO (21:12)
[2024-02-28] MEDS: LORazepam 1 MG TABLET 2 MG PO (21:13)
[2024-02-28] MEDS: Sennosides 8.6 MG TABLET 17.2 MG PO (21:14)
[2024-02-28] MEDS: cloNIDine HCL 0.1 MG TABLET 0.05 MG PO (21:15)
[2024-02-28] MEDS: Tamsulosin HCL 0.4 MG CAPSULE PO (21:15)
[2024-02-28] MEDS: cloZAPine 200 MG, cloZAPine 50 MG 250 MG PO (21:17)
[2024-02-29] MEDS: Omeprazole 20 MG CAPSULE.DR PO (06:42)
[2024-02-29 07:00] VITALS: BMI 29.7
[2024-02-29 07:55] VITALS: BP 111/73; PULSE 85; RESP 18; TEMP 36.8; O2SAT 97
[2024-02-29] MEDS: Docusate Sodium 100 MG CAPSULE PO ×2 (08:13→20:50)
[2024-02-29] MEDS: cloNIDine HCL 0.1 MG TABLET 0.05 MG PO ×2 (08:13→20:51)
[2024-02-29] MEDS: Sertraline HCL 100 MG TABLET PO (08:13)
[2024-02-29] MEDS: polyethylene glycoL 3350 17 GM POWD.PACK PO (08:13)
[2024-02-29] MEDS: LORazepam 1 MG TABLET 2 MG PO ×3 (08:13→20:50)
[2024-02-29 15:46] LABS: Glucose, Whole Blood 122 mg/dL (60-115)
--- NOTE | 2024-02-29 16:04 | P.PNPSI_ITS ---
Subjective Subjective Date of Service: 02/29/24 Reason For Visit: catatonia Interim History: met with pt; discussed with team pt reports mood is good, feeling; agrees to ECT tomorrow. Mental Status Exam Mental Status Exam Patient Appearance: Well Grooomed and Appropriate Patient Orientation: Person, Place and Situation Level of Consciousness: Awake and Appropriate Patient Behavior: Cooperative, Passive and Good Eye Contact Mood Description: Calm and Appropriate Affect Description: Calm and Blunted (a little) Patient Cognition Impaired: Yes Ability to Follow Directions: Good Speech Pattern: Clear Hallucinations: None Delusions: Not Present Thought Process: Distracted and Slowed Thinking Thought Content: positive for [place] and positive for Poverty of Content Judgement: Poor (but improved) Diagnostics Vital Signs (24Hr): Vital Signs - 24 hr 02/28/24 16:17 02/28/24 20:00 02/28/24 21:15 Temperature 98.8 F 96.8 F Pulse Rate 97 96 Respiratory Rate 16 16 Blood Pressure 152/77 H 127/75 127/75 Pulse Oximetry 95 97 Oxygen Delivery Method Room Air Room Air 02/29/24 07:55 Temperature 98.2 F Pulse Rate 85 Respiratory Rate 18 Blood Pressure 111/73 Pulse Oximetry 97 Oxygen Delivery Method Room Air BMI result Body Mass Index 29.7 Labs 02/14/24 14:36 02/25/24 08:12 Labs: Laboratory Results - last 48 hr 02/28/24 02/29/24 06:57 06:41 POC Glucose 111 122 H Imaging Radiology Impressions: ITS Impressions Chest X-Ray 01/07/24 13:27 IMPRESSION: Bronchial wall thickening may be infectious and/or inflammatory in etiology. Electronically signed by: Marianna Torres MD 01/07/2024 03:31 PM EDT RP Cervical Spine CT 02/13/24 14:54 IMPRESSION: Multilevel spondylosis likely representing DISH without acute fracture or trauma-related listhesis. A acute to subacute fracture of the syndesmophyte formation at C3 cannot be entire excluded. If patient's symptoms persist recommend non-IV contrast MRI cervical spine. Fleischner guidelines were followed. Electronically signed by: Mayank Irwin MD 02/13/2024 03:34 PM EST RP Head CT 02/13/24 14:54 IMPRESSION: No acute fracture, bony calvarium or acute intracranial hemorrhage. Stable brain. Electronically signed by: Mayank Irwin MD 02/13/2024 03:39 PM EST RP Hip CT 02/13/24 14:54 IMPRESSION: No acute fracture or dislocation right coxofemoral joints/right hip. Electronically signed by: Mayank Irwin MD 02/13/2024 03:48 PM EST RP Hip CT 02/13/24 14:54 IMPRESSION: No acute fracture or dislocation, left coxofemoral joint/hip. Electronically signed by: Mayank Irwin MD 02/13/2024 03:44 PM EST RP Cervical Spine MRI 02/14/24 14:41 IMPRESSION: Within the limitations of the study, 1. No definitive evidence of fracture involving the C3 syndesmophyte. 2. Multilevel cervical spondylosis without significant spinal canal stenosis or cord compression. Mild multilevel neural foraminal narrowing as described above. Electronically signed by: Villa Tello MD 02/14/2024 03:51 PM EST RP Chest X-Ray 02/21/24 07:23 IMPRESSION: Unremarkable examination. Electronically signed by: Josse Gregorio MD 02/21/2024 05:53 PM EST RP Medications Medications Current Medications Acetaminophen (Acetaminophen 325 Mg Tablet) 650 mg PO Q6H PRN PRN Reason: Headache/Pain Mild Scale (1-3) Last Admin: 02/14/24 01:05 Dose: 650 mg Al Hydroxide/Mg Hydroxide (Magnesium Hydrox/Alum Hydrox 30 Ml Oral.Susp) 30 ml PO Q6H PRN PRN Reason: Heartburn/Nausea Clonidine HCl (Clonidine Hcl 0.1 Mg Tablet) 0.05 mg PO BID [facility]; Protocol Last Admin: 02/29/24 08:13 Dose: 0.05 mg Clozapine 200 mg/ Clozapine 50 (mg) 250 mg PO DAILY@1930 [facility] Last Admin: 02/28/24 21:17 Dose: 250 mg Docusate Sodium (Docusate Sodium 100 Mg Capsule) 100 mg PO BID [facility] Last Admin: 02/29/24 08:13 Dose: 100 mg Glucose (Glucose Gel 15 Gm Gel..Gram.) 15 gm PO Q15M PRN; Protocol PRN Reason: per Hypoglycemia Standing Ord. Hydroxyzine HCl (Hydroxyzine Hcl 25 Mg Tablet) 25 mg PO Q6H PRN PRN Reason: Anxiety Last Admin: 02/20/24 20:05 Dose: 25 mg Dextrose (D10) 250 mls @ 750 mls/hr IV Q15M PRN; Protocol PRN Reason: per Hypoglycemia Standing Ord. Insulin Human Lispro (Insulin Lispro 100 Unit/Ml 3 Ml Vial) 0 unit SUBCUT DAILY [facility]; Protocol Last Admin: 02/29/24 08:21 Dose: Not Given Lorazepam (Lorazepam 1 Mg Tablet) 2 mg PO TID KRISTIN Last Admin: 02/29/24 14:41 Dose: 2 mg Magnesium Hydroxide (Milk Of Magnesia 30 Ml Oral.Susp) 30 ml PO DAILY PRN PRN Reason: Constipation Last Admin: 01/11/24 12:48 Dose: 30 ml Omeprazole (Omeprazole 20 Mg Capsule.Dr) 20 mg PO DAILY@0630 [facility] Last Admin: 02/29/24 06:42 Dose: 20 mg Polyethylene Glycol (Polyethylene Glycol 3350 17 Gm Powd.Pack) 17 gm PO DAILY [facility] Last Admin: 02/29/24 08:13 Dose: 17 gm Senna (Sennosides 8.6 Mg Tablet) 17.2 mg PO BEDTIME [facility] Last Admin: 02/28/24 21:14 Dose: 17.2 mg Sertraline HCl (Sertraline Hcl 100 Mg Tablet) 100 mg PO DAILY [facility] Last Admin: 02/29/24 08:13 Dose: 100 mg Tamsulosin HCl (Tamsulosin Hcl 0.4 Mg Capsule) 0.4 mg PO BEDTIME [facility] Last Admin: 02/28/24 21:15 Dose: 0.4 mg Trazodone HCl (Trazodone Hcl 50 Mg Tablet) 50 mg PO BEDTIME MRX1 PRN PRN Reason: Insomnia Last Admin: 02/24/24 21:18 Dose: 50 mg Allergies Allergies Allergy/AdvReac Type Severity Reaction Status Date / Time No Known Allergies [NKA] Allergy Unknown NONE Verified 01/05/24 11:31 Assessment & Plan Assessment & Plan (1) Schizophrenia, catatonic: Status: Acute Code(s): F20.2 - Catatonic schizophrenia Plan Patient is a 58-year-old male with a PMH significant for HTN, [id number] type 2 diabetes, BPH, schizoaffective disorder, and depression with catatonia admitted to [facility] with hospitalist consult ECT risk stratification. ECT risk stratification Patient with history of multiple prior ECT without apparent complications No apparent acute medical complaints, vitals and EKG reassuring RCRI class 1 risk, 0 points; no additional cardiac workup indicated Based on patient's history, exam, and EKG, there are no apparent contraindications for the planned procedure Plan 1. The patient remains catatonic, we will schedule for ECT next Monday. 2. Hospitalist already cleared him up after his last fall. 3. Continue one-to-one observation. 4. Continue with Clozaril and benzodiazepines. 5. ECT to be scheduled, we will need to contact his father for consent for the treatment. Finally we got consent and he had his 1st ECT on February 20 6. Ativan was increased up to 2 mg p.o. t.i.d. on February 19 02/24/24 cont plan of care cont ect some improvement noted 02/25/2024 Patient improving continue lorazepam continue ECT encourage out of bed 02/26/24 cont ect lorazepam encourage oob 02/27/24 Improved fx tolerating ect Patient educated on: diagnosis and ECT Informed Consent: understands Reason for continued inpatient stay Substantial Risk for: rapid decompensation Time Spent With Patient Time: Total time managing care of this patient today ____ minutes.
[2024-02-29 20:00] VITALS: BP 115/59; PULSE 70; RESP 16; TEMP 36.1; O2SAT 97
[2024-02-29] MEDS: Sennosides 8.6 MG TABLET 17.2 MG PO (20:50)
[2024-02-29] MEDS: Tamsulosin HCL 0.4 MG CAPSULE PO (20:50)
[2024-02-29 20:51] VITALS: BP 115/60
[2024-02-29] MEDS: cloZAPine 200 MG, cloZAPine 50 MG 250 MG PO (20:51)
[2024-03-01] VITALS (12 sets, daily range): BP systolic 117–151; BP diastolic 65–90; PULSE 59–99; RESP 16–18; TEMP 35.8–37.1; O2SAT 94–99
[2024-03-01 06:37] LABS: Glucose, Whole Blood 113 mg/dL (60-115)
[2024-03-01] MEDS: Lactated Ringers 1,000 ML 80 ML IVCONT (06:40)
--- NOTE | 2024-03-01 07:55 | MHC.SHP ---
Pre-Procedural Eval Section A - 24 Hr Update-Section A only Date of Service: 03/01/24 The patient is an INPATIENT: Yes Changes since office visit: Yes Patient answered all questions; No Cold of Flu in the past 2 weeks, No New Medical Problems and No Changes in Medication The patient has been examined within 24 hours of the surgical procedure. The History & Physical has been completed within 30 days and I have reviewed it.: Yes Section B - Complete if H&P > 30 days Chief Complaint: catatonia Allergies: Allergies Allergy/AdvReac Type Severity Reaction Status Date / Time No Known Allergies [NKA] Allergy Unknown NONE Verified 03/01/24 06:35 Plan I have reviewed the history and physical and performed a pertinent physical examination on my patient. No changes have occurred unless specified. Time Spent With Patient Time: Total time managing care of this patient today ____ minutes.
--- NOTE | 2024-03-01 07:55 | HO.ECTPROC ---
ECT Procedure Note Diagnosis/Treatment Date of Service: 03/01/24 Diagnosis: Catatonia and Schizoaffective Disorder Previous ECT Date: 02/26/24 Current Treatment Number: 4 Treatment: Series Interval Clinical Notes: The patient is more talkative, more engaged . No side effects with the previious ECT. ECT done as usual, no complications. Time: Total time managing care of this patient today ____ minutes. ECT Settings Device: THYMATRON DGx Electrode Placement: Bitemporal Program/Pulse Width: 0.50 Energy Percent: 100 Seizure Duration By EEG (in seconds): 22 Medications Administration General Anesthetic: Etomidate (18) Muscle Relaxant: Succinylcholine (120) Ancillary Medications Miscillaneous Medications: Other (Ativan 2 mg IVP after ECT) Airway Management Airway Management: Bag Mask Ventilation Treatment Recommendations No Changes Recommended: No change Pt Tolerated Procedure w/o Issue: Yes
[2024-03-01] MEDS: LORazepam 2 MG/ML VIAL IVPUSH (08:12)
--- NOTE | 2024-03-01 08:29 | HO.ANESPROP2 ---
HPI - Anesthesia Eval Consult details Narrative: for ECT [facility] Active Problems Active Problems: All Active Problems Schizophrenia, catatonic (Acute) Schizoaffective disorder (Acute) Fall (Acute) Pre-op evaluation (Acute) Catatonia (Acute) Nocturnal hypoxia (Acute) Sleep apnea (Acute) Schizoaffective disorder, depressive type (Acute) Benign prostate hyperplasia (Acute) Essential hypertension (Acute) Right hip pain (Acute) Essential (primary) hypertension (Acute) Diabetes mellitus (Acute) Past Medical History Medical History Schizophrenia, catatonic Mild sleep apnea Nocturnal hypoxia Routine medical exam Joint inflammation of right hand and wrist Status post fall Adult general medical exam Screening for colon cancer Screening for prostate cancer Cough BPH (benign prostatic hyperplasia) Essential (primary) hypertension Diabetes mellitus Family History Family History Mother Cancer Father Kidney agenesis Family history of problems with anesthesia: No Surgical History Surgical History History of colonoscopy (~06/15/21) History of tooth extraction History of root canal procedure History of Problems with Anesthesia: No Social History Social History Household Members: None Housing: Apartment Are you a primary special needs child caregiver to a significant other at home: No Do you presently have visiting nurse or other home services: No Unable to assess alcohol history related to: Unable to respond Alcohol intake: former Comment: 1:1 Patient Tobacco Use Status: Never used Tobacco e-Cigarette/Vaping Use: Never Used Second Hand Smoke Exposure: No service: No Current occupational status: employed Sexual orientation: Straight/Heterosexual Cognitive needs: No Hearing needs: No Vision needs: No Meds Allergies Allergy/AdvReac Type Severity Reaction Status Date / Time No Known Allergies [NKA] Allergy Unknown NONE Verified 03/01/24 06:35 Active Medications: Current Medications Acetaminophen (Acetaminophen 325 Mg Tablet) 650 mg PO Q6H PRN PRN Reason: Headache/Pain Mild Scale (1-3) Last Admin: 02/14/24 01:05 Dose: 650 mg Al Hydroxide/Mg Hydroxide (Magnesium Hydrox/Alum Hydrox 30 Ml Oral.Susp) 30 ml PO Q6H PRN PRN Reason: Heartburn/Nausea Clonidine HCl (Clonidine Hcl 0.1 Mg Tablet) 0.05 mg PO BID [facility]; Protocol Last Admin: 02/29/24 20:51 Dose: 0.05 mg Clozapine 200 mg/ Clozapine 50 (mg) 250 mg PO DAILY@1930 [facility] Last Admin: 02/29/24 20:51 Dose: 250 mg Docusate Sodium (Docusate Sodium 100 Mg Capsule) 100 mg PO BID [facility] Last Admin: 02/29/24 20:50 Dose: 100 mg Glucose (Glucose Gel 15 Gm Gel..Gram.) 15 gm PO Q15M PRN; Protocol PRN Reason: per Hypoglycemia Standing Ord. Hydroxyzine HCl (Hydroxyzine Hcl 25 Mg Tablet) 25 mg PO Q6H PRN PRN Reason: Anxiety Last Admin: 02/20/24 20:05 Dose: 25 mg Dextrose (D10) 250 mls @ 750 mls/hr IV Q15M PRN; Protocol PRN Reason: per Hypoglycemia Standing Ord. Lactated Ringer's (Lr) 1,000 mls @ 80 mls/hr IVCONT .[id number] [facility] Last Admin: 03/01/24 06:40 Dose: 80 mls/hr Insulin Human Lispro (Insulin Lispro 100 Unit/Ml 3 Ml Vial) 0 unit SUBCUT DAILY [facility]; Protocol Last Admin: 02/29/24 08:21 Dose: Not Given Lorazepam (Lorazepam 1 Mg Tablet) 2 mg PO TID [facility] Last Admin: 02/29/24 20:50 Dose: 2 mg Magnesium Hydroxide (Milk Of Magnesia 30 Ml Oral.Susp) 30 ml PO DAILY PRN PRN Reason: Constipation Last Admin: 01/11/24 12:48 Dose: 30 ml Omeprazole (Omeprazole 20 Mg Capsule.Dr) 20 mg PO DAILY@0630 [facility] Last Admin: 03/01/24 05:38 Dose: Not Given Polyethylene Glycol (Polyethylene Glycol 3350 17 Gm Powd.Pack) 17 gm PO DAILY [facility] Last Admin: 02/29/24 08:13 Dose: 17 gm Senna (Sennosides 8.6 Mg Tablet) 17.2 mg PO BEDTIME [facility] Last Admin: 02/29/24 20:50 Dose: 17.2 mg Sertraline HCl (Sertraline Hcl 100 Mg Tablet) 100 mg PO DAILY [facility] Last Admin: 02/29/24 08:13 Dose: 100 mg Tamsulosin HCl (Tamsulosin Hcl 0.4 Mg Capsule) 0.4 mg PO BEDTIME [facility] Last Admin: 02/29/24 20:50 Dose: 0.4 mg Trazodone HCl (Trazodone Hcl 50 Mg Tablet) 50 mg PO BEDTIME MRX1 PRN PRN Reason: Insomnia Last Admin: 02/24/24 21:18 Dose: 50 mg Home Medications ?Medication ?Instructions ?Recorded ?Confirmed ?Last Taken ?Type aripiprazole 5 mg tablet 5 mg PO BEDTIME 01/05/24 01/05/24 01/03/24 History lithium carbonate 300 mg capsule 300 mg PO BID 01/05/24 01/05/24 01/05/24 History omeprazole 20 mg capsule,delayed 20 mg PO DAILY@0630 01/05/24 01/05/24 01/05/24 History release polyethylene glycol 3350 17 17 g PO DAILY 01/05/24 01/05/24 01/05/24 History gram/dose oral powder (Miralax) sennosides 8.6 mg tablet (senna) 17.2 mg PO BEDTIME 01/05/24 01/05/24 01/05/24 History tamsulosin 0.4 mg capsule 0.4 mg PO BEDTIME 01/05/24 01/05/24 01/03/24 History Exam Height,Weight and Vital Signs: Height 5 ft 10 in Weight 93.894 kg Last Vital Signs Temp 98 F 03/01/24 08:15 Pulse 94 03/01/24 08:20 Resp 16 03/01/24 08:20 BP 126/83 03/01/24 08:20 Pulse Ox 99 03/01/24 08:20 O2 Del Method Nasal Cannula 03/01/24 08:20 O2 Flow Rate 2 03/01/24 08:20 Pertinent Lab Results Pertinent Lab Results: Laboratory Tests 01/05/24 01/05/24 01/05/24 11:49 15:51 18:36 WBC 8.9 RBC 4.82 Hgb 13.9 L Hct 42.6 MCV 88.4 MCH 28.8 MCHC 32.6 RDW 13.2 Plt Count 169 MPV 11.1 Immature Gran % (Auto) 0.6 H Neut % (Auto) 79.4 H Lymph % (Auto) 13.1 L [place] % (Auto) 6.8 Eos % (Auto) 0.0 Baso % (Auto) 0.1 Lymph # (Auto) 1.2 [place] # (Auto) 0.6 Eos # (Auto) 0.0 Baso # (Auto) 0.0 Abs Immat Gran (auto) 0.05 H Absolute Neuts (auto) 7.1 Absolute Nucleated RBC 0.000 Nucleated RBC % (auto) 0.0 Sodium 141 Potassium 4.6 Chloride 106 Carbon Dioxide 27 Anion Gap 13 BUN 23 H Creatinine 1.42 H Estim Creat Clear Calc 64.4 Estimated GFR 51 POC Glucose 90 Random Glucose 82 Fasting Glucose Estimat Average Glucose Hemoglobin A1c % Calcium 9.2 Total Bilirubin 0.6 AST 13 ALT 9 Alkaline Phosphatase 64 Ammonia Total Protein 7.0 Albumin 4.1 TSH Salicylates < 5.0 L Acetaminophen < 3 Clozapine Norclozapine Tulsita 1.19 Ethyl Alcohol < 10 COVID-19 ([facility]) Negative COVID-19 Clin Com See Note 01/07/24 01/12/24 01/14/24 07:36 08:25 08:35 WBC RBC Hgb Hct MCV MCH MCHC RDW Plt Count MPV Immature Gran % (Auto) Neut % (Auto) Lymph % (Auto) [place] % (Auto) Eos % (Auto) Baso % (Auto) Lymph # (Auto) [place] # (Auto) Eos # (Auto) Baso # (Auto) Abs Immat Gran (auto) Absolute Neuts (auto) 4.9 Absolute Nucleated RBC Nucleated RBC % (auto) Sodium 142 Potassium 4.4 Chloride 106 Carbon Dioxide 25 Anion Gap 15 BUN 23 H Creatinine 1.39 1.55 H Estim Creat Clear Calc 65.6 58.8 Estimated GFR 52 46 POC Glucose Random Glucose 132 H Fasting Glucose Estimat Average Glucose Hemoglobin A1c % Calcium 9.2 Total Bilirubin AST ALT Alkaline Phosphatase Ammonia Total Protein Albumin TSH Salicylates Acetaminophen Clozapine Norclozapine Tulsita 0.90 Ethyl Alcohol COVID-19 ([facility]) COVID-19 [email or web address] Com 01/16/24 01/17/24 01/19/24 10:15 08:14 08:50 WBC RBC Hgb Hct MCV MCH MCHC RDW Plt Count MPV Immature Gran % (Auto) Neut % (Auto) Lymph % (Auto) [place] % (Auto) Eos % (Auto) Baso % (Auto) Lymph # (Auto) [place] # (Auto) Eos # (Auto) Baso # (Auto) Abs Immat Gran (auto) Absolute Neuts (auto) 5.3 Absolute Nucleated RBC Nucleated RBC % (auto) Sodium 144 Potassium 4.3 Chloride 109 H Carbon Dioxide 29 Anion Gap 10 L BUN 24 H Creatinine 1.37 Estim Creat Clear Calc 66.5 Estimated GFR 53 POC Glucose 88 Random Glucose Fasting Glucose 90 Estimat Average Glucose 103 Hemoglobin A1c % 5.2 Calcium 9.4 Total Bilirubin 0.4 AST 15 ALT 12 Alkaline Phosphatase 66 Ammonia Total Protein 6.6 Albumin 3.9 TSH 0.78 Salicylates Acetaminophen Clozapine 353 Norclozapine 196 Tulsita 0.65 0.89 Ethyl Alcohol COVID-19 ([facility]) COVIDA Green Night's Sleep 01/21/24 01/21/24 01/22/24 07:36 12:20 16:09 WBC RBC Hgb Hct MCV MCH MCHC RDW Plt Count MPV Immature Gran % (Auto) Neut % (Auto) Lymph % (Auto) [place] % (Auto) Eos % (Auto) Baso % (Auto) Lymph # (Auto) [place] # (Auto) Eos # (Auto) Baso # (Auto) Abs Immat Gran (auto) Absolute Neuts (auto) Absolute Nucleated RBC Nucleated RBC % (auto) Sodium 141 141 Potassium 3.8 3.8 Chloride 106 107 Carbon Dioxide 26 28 Anion Gap 13 10 L BUN 31 H 29 H Creatinine 1.64 H 1.76 H 1.67 H Estim Creat Clear Calc 55.4 51.6 54.4 Estimated GFR 43 40 42 POC Glucose Random Glucose 173 H 96 Fasting Glucose Estimat Average Glucose Hemoglobin A1c % Calcium 9.3 9.0 Total Bilirubin 0.5 0.4 AST 15 18 ALT 15 10 Alkaline Phosphatase 65 55 Ammonia Total Protein 6.7 6.3 L Albumin 4.0 3.8 TSH Salicylates Acetaminophen Clozapine Norclozapine Tulsita 1.20 Ethyl Alcohol COVID-19 ([facility]) COVIDA Green Night's Sleep 01/23/24 01/24/24 01/24/24 08:05 07:46 16:29 WBC RBC Hgb Hct MCV MCH MCHC RDW Plt Count MPV Immature Gran % (Auto) Neut % (Auto) Lymph % (Auto) [place] % (Auto) Eos % (Auto) Baso % (Auto) Lymph # (Auto) [place] # (Auto) Eos # (Auto) Baso # (Auto) Abs Immat Gran (auto) Absolute Neuts (auto) Absolute Nucleated RBC Nucleated RBC % (auto) Sodium 144 144 Potassium 4.0 4.1 Chloride 107 110 H Carbon Dioxide 29 28 Anion Gap 12 10 L BUN 25 H 22 H Creatinine 1.29 1.37 Estim Creat Clear Calc 70.4 66.3 Estimated GFR 57 53 POC Glucose 106 Random Glucose 91 101 Fasting Glucose Estimat Average Glucose Hemoglobin A1c % Calcium 8.9 8.9 Total Bilirubin AST ALT Alkaline Phosphatase Ammonia Total Protein Albumin TSH Salicylates Acetaminophen Clozapine Norclozapine Tulsita Ethyl Alcohol COVID-19 ([facility]) COVID-19 Clin Com 01/24/24 01/25/24 01/25/24 19:54 06:36 12:42 WBC RBC Hgb Hct MCV MCH MCHC RDW Plt Count MPV Immature Gran % (Auto) Neut % (Auto) Lymph % (Auto) [place] % (Auto) Eos % (Auto) Baso % (Auto) Lymph # (Auto) [place] # (Auto) Eos # (Auto) Baso # (Auto) Abs Immat Gran (auto) Absolute Neuts (auto) Absolute Nucleated RBC Nucleated RBC % (auto) Sodium Potassium Chloride Carbon Dioxide Anion Gap BUN Creatinine Estim Creat Clear Calc Estimated GFR POC Glucose 105 110 159 H Random Glucose Fasting Glucose Estimat Average Glucose Hemoglobin A1c % Calcium Total Bilirubin AST ALT Alkaline Phosphatase Ammonia Total Protein Albumin TSH Salicylates Acetaminophen Clozapine Norclozapine Tulsita Ethyl Alcohol COVID-19 ([facility]) COVID-19 Clin Com 01/25/24 01/25/24 01/26/24 16:48 21:13 06:33 WBC RBC Hgb Hct MCV MCH MCHC RDW Plt Count MPV Immature Gran % (Auto) Neut % (Auto) Lymph % (Auto) [place] % (Auto) Eos % (Auto) Baso % (Auto) Lymph # (Auto) [place] # (Auto) Eos # (Auto) Baso # (Auto) Abs Immat Gran (auto) Absolute Neuts (auto) Absolute Nucleated RBC Nucleated RBC % (auto) Sodium Potassium Chloride Carbon Dioxide Anion Gap BUN Creatinine Estim Creat Clear Calc Estimated GFR POC Glucose 84 118 H 101 Random Glucose Fasting Glucose Estimat Average Glucose Hemoglobin A1c % Calcium Total Bilirubin AST ALT Alkaline Phosphatase Ammonia Total Protein Albumin TSH Salicylates Acetaminophen Clozapine Norclozapine Tulsita Ethyl Alcohol COVID-19 ([facility]) COVID-19 Clin Com 01/26/24 01/26/24 01/26/24 07:56 11:32 16:33 WBC RBC Hgb Hct MCV MCH MCHC RDW Plt Count MPV Immature Gran % (Auto) Neut % (Auto) Lymph % (Auto) [place] % (Auto) Eos % (Auto) Baso % (Auto) Lymph # (Auto) [place] # (Auto) Eos # (Auto) Baso # (Auto) Abs Immat Gran (auto) Absolute Neuts (auto) 3.4 Absolute Nucleated RBC Nucleated RBC % (auto) Sodium Potassium Chloride Carbon Dioxide Anion Gap BUN Creatinine Estim Creat Clear Calc Estimated GFR POC Glucose 97 83 Random Glucose Fasting Glucose Estimat Average Glucose Hemoglobin A1c % Calcium Total Bilirubin AST ALT Alkaline Phosphatase Ammonia Total Protein Albumin TSH Salicylates Acetaminophen Clozapine Norclozapine Tulsita Ethyl Alcohol COVID-19 ([facility]) COVID-19 [email or web address] Com 01/26/24 01/27/24 01/27/24 21:18 06:50 11:13 WBC RBC Hgb Hct MCV MCH MCHC RDW Plt Count MPV Immature Gran % (Auto) Neut % (Auto) Lymph % (Auto) [place] % (Auto) Eos % (Auto) Baso % (Auto) Lymph # (Auto) [place] # (Auto) Eos # (Auto) Baso # (Auto) Abs Immat Gran (auto) Absolute Neuts (auto) Absolute Nucleated RBC Nucleated RBC % (auto) Sodium Potassium Chloride Carbon Dioxide Anion Gap BUN Creatinine Estim Creat Clear Calc Estimated GFR POC Glucose 101 108 99 Random Glucose Fasting Glucose Estimat Average Glucose Hemoglobin A1c % Calcium Total Bilirubin AST ALT Alkaline Phosphatase Ammonia Total Protein Albumin TSH Salicylates Acetaminophen Clozapine Norclozapine Tulsita Ethyl Alcohol COVID-19 ([facility]) COVID-19 Clin Com 01/27/24 01/27/24 01/28/24 16:36 21:31 06:25 WBC RBC Hgb Hct MCV MCH MCHC RDW Plt Count MPV Immature Gran % (Auto) Neut % (Auto) Lymph % (Auto) [place] % (Auto) Eos % (Auto) Baso % (Auto) Lymph # (Auto) [place] # (Auto) Eos # (Auto) Baso # (Auto) Abs Immat Gran (auto) Absolute Neuts (auto) Absolute Nucleated RBC Nucleated RBC % (auto) Sodium Potassium Chloride Carbon Dioxide Anion Gap BUN Creatinine Estim Creat Clear Calc Estimated GFR POC Glucose 80 99 111 Random Glucose Fasting Glucose Estimat Average Glucose Hemoglobin A1c % Calcium Total Bilirubin AST ALT Alkaline Phosphatase Ammonia Total Protein Albumin TSH Salicylates Acetaminophen Clozapine Norclozapine Tulsita Ethyl Alcohol COVID-19 ([facility]) COVID-19 [email or web address] Com 01/28/24 01/28/24 01/28/24 07:21 11:32 19:53 WBC RBC Hgb Hct MCV MCH MCHC RDW Plt Count MPV Immature Gran % (Auto) Neut % (Auto) Lymph % (Auto) [place] % (Auto) Eos % (Auto) Baso % (Auto) Lymph # (Auto) [place] # (Auto) Eos # (Auto) Baso # (Auto) Abs Immat Gran (auto) Absolute Neuts (auto) Absolute Nucleated RBC Nucleated RBC % (auto) Sodium Potassium Chloride Carbon Dioxide Anion Gap BUN Creatinine 1.48 H Estim Creat Clear Calc 61.8 Estimated GFR 48 POC Glucose 93 123 H Random Glucose Fasting Glucose Estimat Average Glucose Hemoglobin A1c % Calcium Total Bilirubin AST ALT Alkaline Phosphatase Ammonia Total Protein Albumin TSH Salicylates Acetaminophen Clozapine Norclozapine Tulsita Ethyl Alcohol COVID-19 ([facility]) COVID-19 [facility] 01/29/24 01/29/24 01/30/24 06:32 19:56 06:34 WBC RBC Hgb Hct MCV MCH MCHC RDW Plt Count MPV Immature Gran % (Auto) Neut % (Auto) Lymph % (Auto) [place] % (Auto) Eos % (Auto) Baso % (Auto) Lymph # (Auto) [place] # (Auto) Eos # (Auto) Baso # (Auto) Abs Immat Gran (auto) Absolute Neuts (auto) Absolute Nucleated RBC Nucleated RBC % (auto) Sodium Potassium Chloride Carbon Dioxide Anion Gap BUN Creatinine Estim Creat Clear Calc Estimated GFR POC Glucose 109 148 H 109 Random Glucose Fasting Glucose Estimat Average Glucose Hemoglobin A1c % Calcium Total Bilirubin AST ALT Alkaline Phosphatase Ammonia Total Protein Albumin TSH Salicylates Acetaminophen Clozapine Norclozapine Tulsita Ethyl Alcohol COVID-19 ([facility]) COVID-19 [email or web address] Com 01/31/24 02/01/24 02/02/24 06:35 06:09 06:19 WBC RBC Hgb Hct MCV MCH MCHC RDW Plt Count MPV Immature Gran % (Auto) Neut % (Auto) Lymph % (Auto) [place] % (Auto) Eos % (Auto) Baso % (Auto) Lymph # (Auto) [place] # (Auto) Eos # (Auto) Baso # (Auto) Abs Immat Gran (auto) Absolute Neuts (auto) Absolute Nucleated RBC Nucleated RBC % (auto) Sodium Potassium Chloride Carbon Dioxide Anion Gap BUN Creatinine Estim Creat Clear Calc Estimated GFR POC Glucose 98 101 102 Random Glucose Fasting Glucose Estimat Average Glucose Hemoglobin A1c % Calcium Total Bilirubin AST ALT Alkaline Phosphatase Ammonia Total Protein Albumin TSH Salicylates Acetaminophen Clozapine Norclozapine Tulsita Ethyl Alcohol COVID-19 ([facility]) COVID-19 [email or web address] Com 02/02/24 02/03/24 02/04/24 08:25 06:37 06:46 WBC RBC Hgb Hct MCV MCH MCHC RDW Plt Count MPV Immature Gran % (Auto) Neut % (Auto) Lymph % (Auto) [place] % (Auto) Eos % (Auto) Baso % (Auto) Lymph # (Auto) [place] # (Auto) Eos # (Auto) Baso # (Auto) Abs Immat Gran (auto) Absolute Neuts (auto) 3.3 Absolute Nucleated RBC Nucleated RBC % (auto) Sodium Potassium Chloride Carbon Dioxide Anion Gap BUN Creatinine Estim Creat Clear Calc Estimated GFR POC Glucose 95 98 Random Glucose Fasting Glucose Estimat Average Glucose Hemoglobin A1c % Calcium Total Bilirubin AST ALT Alkaline Phosphatase Ammonia Total Protein Albumin TSH Salicylates Acetaminophen Clozapine Norclozapine Tulsita Ethyl Alcohol COVID-19 ([facility]) COVID-19 [email or web address] Com 02/04/24 02/05/24 02/06/24 07:17 06:37 06:46 WBC RBC Hgb Hct MCV MCH MCHC RDW Plt Count MPV Immature Gran % (Auto) Neut % (Auto) Lymph % (Auto) [place] % (Auto) Eos % (Auto) Baso % (Auto) Lymph # (Auto) [place] # (Auto) Eos # (Auto) Baso # (Auto) Abs Immat Gran (auto) Absolute Neuts (auto) Absolute Nucleated RBC Nucleated RBC % (auto) Sodium Potassium Chloride Carbon Dioxide Anion Gap BUN Creatinine 1.32 Estim Creat Clear Calc 69.3 Estimated GFR 55 POC Glucose 94 103 Random Glucose Fasting Glucose Estimat Average Glucose Hemoglobin A1c % Calcium Total Bilirubin AST ALT Alkaline Phosphatase Ammonia Total Protein Albumin TSH Salicylates Acetaminophen Clozapine Norclozapine Tulsita Ethyl Alcohol COVID-19 ([facility]) COVID-19 [facility] 02/07/24 02/08/24 02/09/24 06:57 06:32 06:40 WBC RBC Hgb Hct MCV MCH MCHC RDW Plt Count MPV Immature Gran % (Auto) Neut % (Auto) Lymph % (Auto) [place] % (Auto) Eos % (Auto) Baso % (Auto) Lymph # (Auto) [place] # (Auto) Eos # (Auto) Baso # (Auto) Abs Immat Gran (auto) Absolute Neuts (auto) Absolute Nucleated RBC Nucleated RBC % (auto) Sodium Potassium Chloride Carbon Dioxide Anion Gap BUN Creatinine Estim Creat Clear Calc Estimated GFR POC Glucose 118 H 117 H 121 H Random Glucose Fasting Glucose Estimat Average Glucose Hemoglobin A1c % Calcium Total Bilirubin AST ALT Alkaline Phosphatase Ammonia Total Protein Albumin TSH Salicylates Acetaminophen Clozapine Norclozapine Tulsita Ethyl Alcohol COVID-19 ([facility]) VaccsysID-19 [facility] 02/09/24 02/10/24 02/11/24 07:57 06:31 06:50 WBC RBC Hgb Hct MCV MCH MCHC RDW Plt Count MPV Immature Gran % (Auto) Neut % (Auto) Lymph % (Auto) [place] % (Auto) Eos % (Auto) Baso % (Auto) Lymph # (Auto) [place] # (Auto) Eos # (Auto) Baso # (Auto) Abs Immat Gran (auto) Absolute Neuts (auto) 3.9 Absolute Nucleated RBC Nucleated RBC % (auto) Sodium Potassium Chloride Carbon Dioxide Anion Gap BUN Creatinine Estim Creat Clear Calc Estimated GFR POC Glucose 110 114 Random Glucose Fasting Glucose Estimat Average Glucose Hemoglobin A1c % Calcium Total Bilirubin AST ALT Alkaline Phosphatase Ammonia Total Protein Albumin TSH Salicylates Acetaminophen Clozapine Norclozapine Tulsita Ethyl Alcohol COVID-19 ([facility]) COVID-19 [facility] 02/11/24 02/12/24 02/12/24 10:16 06:36 10:14 WBC RBC Hgb Hct MCV MCH MCHC RDW Plt Count MPV Immature Gran % (Auto) Neut % (Auto) Lymph % (Auto) [place] % (Auto) Eos % (Auto) Baso % (Auto) Lymph # (Auto) [place] # (Auto) Eos # (Auto) Baso # (Auto) Abs Immat Gran (auto) Absolute Neuts (auto) Absolute Nucleated RBC Nucleated RBC % (auto) Sodium Potassium Chloride Carbon Dioxide Anion Gap BUN Creatinine 1.21 Estim Creat Clear Calc 75.8 Estimated GFR > 60 POC Glucose 130 H 102 Random Glucose Fasting Glucose Estimat Average Glucose Hemoglobin A1c % Calcium Total Bilirubin AST ALT Alkaline Phosphatase Ammonia Total Protein Albumin TSH Salicylates Acetaminophen Clozapine Norclozapine Tulsita Ethyl Alcohol COVID-19 ([facility]) COVID-19 [email or web address] Com 02/13/24 02/13/24 02/13/24 07:10 14:35 19:44 WBC RBC Hgb Hct MCV MCH MCHC RDW Plt Count MPV Immature Gran % (Auto) Neut % (Auto) Lymph % (Auto) [place] % (Auto) Eos % (Auto) Baso % (Auto) Lymph # (Auto) [place] # (Auto) Eos # (Auto) Baso # (Auto) Abs Immat Gran (auto) Absolute Neuts (auto) Absolute Nucleated RBC Nucleated RBC % (auto) Sodium Potassium Chloride Carbon Dioxide Anion Gap BUN Creatinine Estim Creat Clear Calc Estimated GFR POC Glucose 115 89 105 Random Glucose Fasting Glucose Estimat Average Glucose Hemoglobin A1c % Calcium Total Bilirubin AST ALT Alkaline Phosphatase Ammonia Total Protein Albumin TSH Salicylates Acetaminophen Clozapine Norclozapine Tulsita Ethyl Alcohol COVID-19 ([facility]) COVID-19 [email or web address] Com 02/14/24 02/14/24 02/15/24 06:30 14:36 06:36 WBC 6.9 RBC 4.34 L Hgb 12.5 L Hct 37.5 L MCV 86.4 MCH 28.8 MCHC 33.3 RDW 12.7 Plt Count 130 L MPV 11.0 Immature Gran % (Auto) 0.3 Neut % (Auto) 71.4 Lymph % (Auto) 19.9 L [place] % (Auto) 8.3 Eos % (Auto) 0.0 Baso % (Auto) 0.1 Lymph # (Auto) 1.4 [place] # (Auto) 0.6 Eos # (Auto) 0.0 Baso # (Auto) 0.0 Abs Immat Gran (auto) 0.02 Absolute Neuts (auto) 4.9 Absolute Nucleated RBC 0.000 Nucleated RBC % (auto) 0.0 Sodium 144 Potassium 3.8 Chloride 110 H Carbon Dioxide 23 Anion Gap 15 BUN 21 H Creatinine 1.30 Estim Creat Clear Calc 70.5 Estimated GFR 56 POC Glucose 111 99 Random Glucose Fasting Glucose 99 Estimat Average Glucose Hemoglobin A1c % Calcium 9.1 Total Bilirubin 0.5 AST 26 ALT 13 Alkaline Phosphatase 63 Ammonia 39 Total Protein 6.4 L Albumin 3.8 TSH 0.92 Salicylates Acetaminophen Clozapine Norclozapine Tulsita Ethyl Alcohol COVID-19 ([facility]) COVID-19 [email or web address] Com 02/16/24 02/16/24 02/16/24 06:34 07:03 10:11 WBC RBC Hgb Hct MCV MCH MCHC RDW Plt Count MPV Immature Gran % (Auto) Neut % (Auto) Lymph % (Auto) [place] % (Auto) Eos % (Auto) Baso % (Auto) Lymph # (Auto) [place] # (Auto) Eos # (Auto) Baso # (Auto) Abs Immat Gran (auto) Absolute Neuts (auto) 4.5 Absolute Nucleated RBC Nucleated RBC % (auto) Sodium Potassium Chloride Carbon Dioxide Anion Gap BUN Creatinine Estim Creat Clear Calc Estimated GFR POC Glucose 67 78 Random Glucose Fasting Glucose Estimat Average Glucose Hemoglobin A1c % Calcium Total Bilirubin AST ALT Alkaline Phosphatase Ammonia Total Protein Albumin TSH Salicylates Acetaminophen Clozapine Norclozapine Tulsita Ethyl Alcohol COVID-19 ([facility]) COVID-19 [email or web address] 02/17/24 02/18/24 02/18/24 06:24 06:45 08:19 WBC RBC Hgb Hct MCV MCH MCHC RDW Plt Count MPV Immature Gran % (Auto) Neut % (Auto) Lymph % (Auto) [place] % (Auto) Eos % (Auto) Baso % (Auto) Lymph # (Auto) [place] # (Auto) Eos # (Auto) Baso # (Auto) Abs Immat Gran (auto) Absolute Neuts (auto) Absolute Nucleated RBC Nucleated RBC % (auto) Sodium Potassium Chloride Carbon Dioxide Anion Gap BUN Creatinine 1.48 H Estim Creat Clear Calc 61.2 Estimated GFR 48 POC Glucose 88 114 Random Glucose Fasting Glucose Estimat Average Glucose Hemoglobin A1c % Calcium Total Bilirubin AST ALT Alkaline Phosphatase Ammonia Total Protein Albumin TSH Salicylates Acetaminophen Clozapine Norclozapine Tulsita Ethyl Alcohol COVID-19 ([facility]) COVID-19 [email or web address] 02/19/24 02/20/24 02/21/24 06:40 06:33 06:48 WBC RBC Hgb Hct MCV MCH MCHC RDW Plt Count MPV Immature Gran % (Auto) Neut % (Auto) Lymph % (Auto) [place] % (Auto) Eos % (Auto) Baso % (Auto) Lymph # (Auto) [place] # (Auto) Eos # (Auto) Baso # (Auto) Abs Immat Gran (auto) Absolute Neuts (auto) Absolute Nucleated RBC Nucleated RBC % (auto) Sodium Potassium Chloride Carbon Dioxide Anion Gap BUN Creatinine Estim Creat Clear Calc Estimated GFR POC Glucose 111 117 H 134 H Random Glucose Fasting Glucose Estimat Average Glucose Hemoglobin A1c % Calcium Total Bilirubin AST ALT Alkaline Phosphatase Ammonia Total Protein Albumin TSH Salicylates Acetaminophen Clozapine Norclozapine Tulsita Ethyl Alcohol COVID-19 ([facility]) COVID-19 [email or web address] 02/22/24 02/23/24 02/24/24 06:22 08:01 06:52 WBC RBC Hgb Hct MCV MCH MCHC RDW Plt Count MPV Immature Gran % (Auto) Neut % (Auto) Lymph % (Auto) [place] % (Auto) Eos % (Auto) Baso % (Auto) Lymph # (Auto) [place] # (Auto) Eos # (Auto) Baso # (Auto) Abs Immat Gran (auto) Absolute Neuts (auto) 3.9 Absolute Nucleated RBC Nucleated RBC % (auto) Sodium Potassium Chloride Carbon Dioxide Anion Gap BUN Creatinine Estim Creat Clear Calc Estimated GFR POC Glucose 121 H 123 H Random Glucose Fasting Glucose Estimat Average Glucose Hemoglobin A1c % Calcium Total Bilirubin AST ALT Alkaline Phosphatase Ammonia Total Protein Albumin TSH Salicylates Acetaminophen Clozapine Norclozapine Tulsita Ethyl Alcohol COVID-19 ([facility]AKA) COVID-19 [facility] 02/25/24 02/25/24 02/26/24 07:00 08:12 06:23 WBC RBC Hgb Hct MCV MCH MCHC RDW Plt Count MPV Immature Gran % (Auto) Neut % (Auto) Lymph % (Auto) [place] % (Auto) Eos % (Auto) Baso % (Auto) Lymph # (Auto) [place] # (Auto) Eos # (Auto) Baso # (Auto) Abs Immat Gran (auto) Absolute Neuts (auto) Absolute Nucleated RBC Nucleated RBC % (auto) Sodium Potassium Chloride Carbon Dioxide Anion Gap BUN Creatinine 1.32 Estim Creat Clear Calc 67.7 Estimated GFR 55 POC Glucose 124 H 106 Random Glucose Fasting Glucose Estimat Average Glucose Hemoglobin A1c % Calcium Total Bilirubin AST ALT Alkaline Phosphatase Ammonia Total Protein Albumin TSH Salicylates Acetaminophen Clozapine Norclozapine Tulsita Ethyl Alcohol COVID-19 ([facility]) COVID-19 [email or web address] Com 02/26/24 02/27/24 02/28/24 13:44 06:31 06:57 WBC RBC Hgb Hct MCV MCH MCHC RDW Plt Count MPV Immature Gran % (Auto) Neut % (Auto) Lymph % (Auto) [place] % (Auto) Eos % (Auto) Baso % (Auto) Lymph # (Auto) [place] # (Auto) Eos # (Auto) Baso # (Auto) Abs Immat Gran (auto) Absolute Neuts (auto) Absolute Nucleated RBC Nucleated RBC % (auto) Sodium Potassium Chloride Carbon Dioxide Anion Gap BUN Creatinine Estim Creat Clear Calc Estimated GFR POC Glucose 86 111 111 Random Glucose Fasting Glucose Estimat Average Glucose Hemoglobin A1c % Calcium Total Bilirubin AST ALT Alkaline Phosphatase Ammonia Total Protein Albumin TSH Salicylates Acetaminophen Clozapine Norclozapine Tulsita Ethyl Alcohol COVID-19 ([facility]) COVID-19 [email or web address] Com 02/29/24 03/01/24 06:41 06:26 WBC RBC Hgb Hct MCV MCH MCHC RDW Plt Count MPV Immature Gran % (Auto) Neut % (Auto) Lymph % (Auto) [place] % (Auto) Eos % (Auto) Baso % (Auto) Lymph # (Auto) [place] # (Auto) Eos # (Auto) Baso # (Auto) Abs Immat Gran (auto) Absolute Neuts (auto) Absolute Nucleated RBC Nucleated RBC % (auto) Sodium Potassium Chloride Carbon Dioxide Anion Gap BUN Creatinine Estim Creat Clear Calc Estimated GFR POC Glucose 122 H 113 Random Glucose Fasting Glucose Estimat Average Glucose Hemoglobin A1c % Calcium Total Bilirubin AST ALT Alkaline Phosphatase Ammonia Total Protein Albumin TSH Salicylates Acetaminophen Clozapine Norclozapine Tulsita Ethyl Alcohol COVID-19 ([facility]AKA) COVID-19 [email or web address] Com Airway Mallampati Class: III TM Dist: <=3cm Neck ROM: Full Heart: rrr Lungs: cta Assessment and Plan Assessment Anesthesia Assessment: Anesthesia Plan Discussed Final Anesthetic Review Family History of Problems with Anesthesia: No History of Problems with Anesthesia: No NPO: Yes ASA Class: III Final Preanesthetic Review: No Changes in Pt Med Stat, Meds/Allgs Chart Reviewed, Consent Obtained/Reviewed and Anes Risks/Benef Reviewed Patient Risk: Intermediate Procedure Risk: Low Anesthetic Plan Anesthetic Plan: GA Disposition: Standard PACU
[2024-03-01] MEDS: Docusate Sodium 100 MG CAPSULE PO ×2 (10:02→20:55)
[2024-03-01] MEDS: cloNIDine HCL 0.1 MG TABLET 0.05 MG PO ×2 (10:02→20:55)
[2024-03-01] MEDS: Omeprazole 20 MG CAPSULE.DR PO (10:02)
[2024-03-01] MEDS: Sertraline HCL 100 MG TABLET PO (10:02)
[2024-03-01] MEDS: polyethylene glycoL 3350 17 GM POWD.PACK PO (10:06)
[2024-03-01 14:09] LABS: Neut%MD 66.8 %; Neutrophils Absolute Auto 3.7 x10*3/uL (2.0-8.3); WBCANC 5.5 X10*3/uL
[2024-03-01] MEDS: LORazepam 1 MG TABLET 2 MG PO ×2 (14:27→20:59)
[2024-03-01] MEDS: Sennosides 8.6 MG TABLET 17.2 MG PO (20:56)
[2024-03-01] MEDS: Tamsulosin HCL 0.4 MG CAPSULE PO (20:56)
[2024-03-01] MEDS: cloZAPine 200 MG, cloZAPine 50 MG 250 MG PO (20:58)
--- NOTE | 2024-03-01 23:36 | HO.PSYCHPN ---
Subjective Subjective Date of Service: 03/01/24 Reason For Visit: catatonia Interim History: met with pt; discussed with team pt says he's good and affect is noticeably brighter, speech more clear and spontaneous. Agrees to continued ECT Mental Status Exam Mental Status Exam Patient Appearance: Well Grooomed and Appropriate Patient Orientation: Person, Place and Situation Level of Consciousness: Awake and Appropriate Patient Behavior: Appropriate, Cooperative, Passive and Good Eye Contact Mood Description: Calm and Appropriate Affect Description: Calm Patient Cognition Impaired: Yes Ability to Follow Directions: Good Speech Pattern: Clear Hallucinations: None Delusions: Not Present Thought Process: Distracted and Slowed Thinking Thought Content: positive for [place] and positive for Poverty of Content Judgement: Fair Diagnostics Vital Signs (24Hr): Vital Signs - 24 hr 03/01/24 06:23 03/01/24 06:36 03/01/24 08:00 Temperature 97.2 F 96.4 F L 97.1 F Pulse Rate 78 68 96 Respiratory Rate 16 16 18 Blood Pressure 123/90 H 117/67 151/72 H Pulse Oximetry 95 94 97 Oxygen Delivery Method Room Air Room Air Oxygen Flow Rate 03/01/24 08:05 03/01/24 08:10 03/01/24 08:15 Temperature 98 F 98 F Pulse Rate 59 90 90 Respiratory Rate 16 16 16 Blood Pressure 124/80 126/83 144/80 H Pulse Oximetry 99 99 99 Oxygen Delivery Method Nasal Cannula Nasal Cannula Nasal Cannula Oxygen Flow Rate 2 2 2 03/01/24 08:20 03/01/24 08:35 03/01/24 08:50 Temperature Pulse Rate 94 99 96 Respiratory Rate 16 16 16 Blood Pressure 126/83 138/77 151/82 H Pulse Oximetry 99 99 95 Oxygen Delivery Method Nasal Cannula Room Air Room Air Oxygen Flow Rate 2 03/01/24 09:38 03/01/24 20:00 03/01/24 20:55 Temperature 97.1 F 98.8 F Pulse Rate 96 71 Respiratory Rate 18 16 Blood Pressure 151/72 H 119/65 119/65 Pulse Oximetry 98 96 Oxygen Delivery Method Room Air Oxygen Flow Rate BMI result Body Mass Index 29.7 Labs 02/14/24 14:36 02/25/24 08:12 Labs: Laboratory Results - last 48 hr 02/29/24 03/01/24 03/01/24 06:41 06:26 14:02 Absolute Neuts (auto) 3.7 POC Glucose 122 H 113 03/01/24 14:02 Absolute Neuts (auto) Cancelled POC Glucose Imaging Radiology Impressions: ITS Impressions Chest X-Ray 01/07/24 13:27 IMPRESSION: Bronchial wall thickening may be infectious and/or inflammatory in etiology. Electronically signed by: Marianna Torres MD 01/07/2024 03:31 PM EDT RP Cervical Spine CT 02/13/24 14:54 IMPRESSION: Multilevel spondylosis likely representing DISH without acute fracture or trauma-related listhesis. A acute to subacute fracture of the syndesmophyte formation at C3 cannot be entire excluded. If patient's symptoms persist recommend non-IV contrast MRI cervical spine. Fleischner guidelines were followed. Electronically signed by: Mayank Irwin MD 02/13/2024 03:34 PM EST RP Head CT 02/13/24 14:54 IMPRESSION: No acute fracture, bony calvarium or acute intracranial hemorrhage. Stable brain. Electronically signed by: Mayank Irwin MD 02/13/2024 03:39 PM EST RP Hip CT 02/13/24 14:54 IMPRESSION: No acute fracture or dislocation right coxofemoral joints/right hip. Electronically signed by: Mayank Irwin MD 02/13/2024 03:48 PM EST RP Hip CT 02/13/24 14:54 IMPRESSION: No acute fracture or dislocation, left coxofemoral joint/hip. Electronically signed by: Mayank Irwin MD 02/13/2024 03:44 PM EST RP Cervical Spine MRI 02/14/24 14:41 IMPRESSION: Within the limitations of the study, 1. No definitive evidence of fracture involving the C3 syndesmophyte. 2. Multilevel cervical spondylosis without significant spinal canal stenosis or cord compression. Mild multilevel neural foraminal narrowing as described above. Electronically signed by: Villa Tello MD 02/14/2024 03:51 PM EST RP Chest X-Ray 02/21/24 07:23 IMPRESSION: Unremarkable examination. Electronically signed by: Josse Gregorio MD 02/21/2024 05:53 PM EST Medications Medications Current Medications Acetaminophen (Acetaminophen 325 Mg Tablet) 650 mg PO Q6H PRN PRN Reason: Headache/Pain Mild Scale (1-3) Last Admin: 02/14/24 01:05 Dose: 650 mg Al Hydroxide/Mg Hydroxide (Magnesium Hydrox/Alum Hydrox 30 Ml Oral.Susp) 30 ml PO Q6H PRN PRN Reason: Heartburn/Nausea Clonidine HCl (Clonidine Hcl 0.1 Mg Tablet) 0.05 mg PO BID [facility]; Protocol Last Admin: 03/01/24 20:55 Dose: 0.05 mg Clozapine 200 mg/ Clozapine 50 (mg) 250 mg PO DAILY@1930 [facility] Last Admin: 03/01/24 20:58 Dose: 250 mg Docusate Sodium (Docusate Sodium 100 Mg Capsule) 100 mg PO BID [facility] Last Admin: 03/01/24 20:55 Dose: 100 mg Glucose (Glucose Gel 15 Gm Gel..Gram.) 15 gm PO Q15M PRN; Protocol PRN Reason: per Hypoglycemia Standing Ord. Hydroxyzine HCl (Hydroxyzine Hcl 25 Mg Tablet) 25 mg PO Q6H PRN PRN Reason: Anxiety Last Admin: 02/20/24 20:05 Dose: 25 mg Dextrose (D10) 250 mls @ 750 mls/hr IV Q15M PRN; Protocol PRN Reason: per Hypoglycemia Standing Ord. Lactated Ringer's (Lr) 1,000 mls @ 80 mls/hr IVCONT .[id number] [facility] Last Admin: 03/01/24 21:59 Dose: Not Given Insulin Human Lispro (Insulin Lispro 100 Unit/Ml 3 Ml Vial) 0 unit SUBCUT DAILY [facility]; Protocol Last Admin: 03/01/24 10:10 Dose: Not Given Lorazepam (Lorazepam 1 Mg Tablet) 2 mg PO TID [facility] Last Admin: 03/01/24 20:59 Dose: 2 mg Magnesium Hydroxide (Milk Of Magnesia 30 Ml Oral.Susp) 30 ml PO DAILY PRN PRN Reason: Constipation Last Admin: 01/11/24 12:48 Dose: 30 ml Naloxone HCl (Naloxone Hcl 0.4 Mg/Ml Vial) 0.04 mg IVPUSH Q5M PRN PRN Reason: Excessive sedation or RR < 8 Omeprazole (Omeprazole 20 Mg Capsule.Dr) 20 mg PO DAILY@0630 [facility] Last Admin: 03/01/24 10:02 Dose: 20 mg Polyethylene Glycol (Polyethylene Glycol 3350 17 Gm Powd.Pack) 17 gm PO DAILY [facility] Last Admin: 03/01/24 10:06 Dose: 17 gm Senna (Sennosides 8.6 Mg Tablet) 17.2 mg PO BEDTIME [facility] Last Admin: 03/01/24 20:56 Dose: 17.2 mg Sertraline HCl (Sertraline Hcl 100 Mg Tablet) 100 mg PO DAILY [facility] Last Admin: 03/01/24 10:02 Dose: 100 mg Tamsulosin HCl (Tamsulosin Hcl 0.4 Mg Capsule) 0.4 mg PO BEDTIME [facility] Last Admin: 03/01/24 20:56 Dose: 0.4 mg Trazodone HCl (Trazodone Hcl 50 Mg Tablet) 50 mg PO BEDTIME MRX1 PRN PRN Reason: Insomnia Last Admin: 02/24/24 21:18 Dose: 50 mg Allergies Allergies Allergy/AdvReac Type Severity Reaction Status Date / Time No Known Allergies [NKA] Allergy Unknown NONE Verified 03/01/24 06:35 Assessment & Plan Assessment & Plan (1) Schizophrenia, catatonic: Status: Acute Code(s): F20.2 - Catatonic schizophrenia Plan Patient is a 58-year-old male with a PMH significant for HTN, [id number] type 2 diabetes, BPH, schizoaffective disorder, and depression with catatonia admitted to [facility] with hospitalist consult ECT risk stratification. ECT risk stratification Patient with history of multiple prior ECT without apparent complications No apparent acute medical complaints, vitals and EKG reassuring RCRI class 1 risk, 0 points; no additional cardiac workup indicated Based on patient's history, exam, and EKG, there are no apparent contraindications for the planned procedure Plan 1. The patient remains catatonic, we will schedule for ECT next Monday. 2. Hospitalist already cleared him up after his last fall. 3. Continue one-to-one observation. 4. Continue with Clozaril and benzodiazepines. 5. ECT to be scheduled, we will need to contact his father for consent for the treatment. Finally we got consent and he had his 1st ECT on February 20 6. Ativan was increased up to 2 mg p.o. t.i.d. on February 19 02/24/24 cont plan of care cont ect some improvement noted 02/25/2024 Patient improving continue lorazepam continue ECT encourage out of bed 02/26/24 cont ect lorazepam encourage oob 02/27/24 Improved fx tolerating ect Patient educated on: diagnosis and ECT Informed Consent: understands Reason for continued inpatient stay Substantial Risk for: rapid decompensation Time Spent With Patient Time: Total time managing care of this patient today ____ minutes.
[2024-03-02 07:25] LABS: Glucose, Whole Blood 151 mg/dL (60-115)
[2024-03-02 08:00] VITALS: BP 112/51; PULSE 73; RESP 18; TEMP 36.3; O2SAT 96
[2024-03-02] MEDS: Sertraline HCL 100 MG TABLET PO (08:09)
[2024-03-02] MEDS: cloNIDine HCL 0.1 MG TABLET 0.05 MG PO ×2 (08:09→20:44)
[2024-03-02] MEDS: Docusate Sodium 100 MG CAPSULE PO ×2 (08:10→20:44)
[2024-03-02] MEDS: LORazepam 1 MG TABLET 2 MG PO ×3 (08:10→20:43)
[2024-03-02] MEDS: polyethylene glycoL 3350 17 GM POWD.PACK PO (08:11)
[2024-03-02] MEDS: Insulin Lispro 100 UNIT/ML 3 ML VIAL SUBCUT (08:26)
--- NOTE | 2024-03-02 16:12 | P.PNPSI_ITS ---
Subjective Subjective Date of Service: 03/02/24 Reason For Visit: catatonia Interim History: met with patient; discussed with team pt remains doing better; says mood is good and staff report he remains more social, in the [place], eating, taking meds...no complaints/no requests Mental Status Exam Mental Status Exam Patient Appearance: Well Grooomed and Appropriate Patient Orientation: Person, Place and Situation Level of Consciousness: Awake and Appropriate Patient Behavior: Appropriate, Cooperative, Passive and Good Eye Contact Mood Description: Calm and Appropriate Affect Description: Calm Patient Cognition Impaired: Yes Ability to Follow Directions: Good Speech Pattern: Clear Hallucinations: None Delusions: Not Present Thought Process: Distracted and Slowed Thinking Thought Content: positive for [place] and positive for Poverty of Content Judgement: Fair Diagnostics Vital Signs (24Hr): Vital Signs - 24 hr 03/01/24 20:00 03/01/24 20:55 03/02/24 08:00 Temperature 98.8 F 97.3 F Pulse Rate 71 73 Respiratory Rate 16 18 Blood Pressure 119/65 119/65 112/51 L Pulse Oximetry 96 96 Oxygen Delivery Method Room Air Room Air BMI result Body Mass Index 29.7 Labs 02/14/24 14:36 02/25/24 08:12 Labs: Laboratory Results - last 48 hr 03/01/24 03/01/24 03/01/24 06:26 14:02 14:02 Absolute Neuts (auto) 3.7 Cancelled POC Glucose 113 03/02/24 07:21 Absolute Neuts (auto) POC Glucose 151 H Imaging Radiology Impressions: ITS Impressions Chest X-Ray 01/07/24 13:27 IMPRESSION: Bronchial wall thickening may be infectious and/or inflammatory in etiology. Electronically signed by: Marianna Torres MD 01/07/2024 03:31 PM EDT RP Cervical Spine CT 02/13/24 14:54 IMPRESSION: Multilevel spondylosis likely representing DISH without acute fracture or trauma-related listhesis. A acute to subacute fracture of the syndesmophyte formation at C3 cannot be entire excluded. If patient's symptoms persist recommend non-IV contrast MRI cervical spine. Fleischner guidelines were followed. Electronically signed by: Mayank Irwin MD 02/13/2024 03:34 PM EST RP Head CT 02/13/24 14:54 IMPRESSION: No acute fracture, bony calvarium or acute intracranial hemorrhage. Stable brain. Electronically signed by: Mayank Irwin MD 02/13/2024 03:39 PM EST RP Hip CT 02/13/24 14:54 IMPRESSION: No acute fracture or dislocation right coxofemoral joints/right hip. Electronically signed by: Mayank Irwin MD 02/13/2024 03:48 PM EST RP Hip CT 02/13/24 14:54 IMPRESSION: No acute fracture or dislocation, left coxofemoral joint/hip. Electronically signed by: Mayank Irwin MD 02/13/2024 03:44 PM EST RP Cervical Spine MRI 02/14/24 14:41 IMPRESSION: Within the limitations of the study, 1. No definitive evidence of fracture involving the C3 syndesmophyte. 2. Multilevel cervical spondylosis without significant spinal canal stenosis or cord compression. Mild multilevel neural foraminal narrowing as described above. Electronically signed by: Villa Tello MD 02/14/2024 03:51 PM EST RP Chest X-Ray 02/21/24 07:23 IMPRESSION: Unremarkable examination. Electronically signed by: Josse Gregorio MD 02/21/2024 05:53 PM EST RP Medications Medications Current Medications Acetaminophen (Acetaminophen 325 Mg Tablet) 650 mg PO Q6H PRN PRN Reason: Headache/Pain Mild Scale (1-3) Last Admin: 02/14/24 01:05 Dose: 650 mg Al Hydroxide/Mg Hydroxide (Magnesium Hydrox/Alum Hydrox 30 Ml Oral.Susp) 30 ml PO Q6H PRN PRN Reason: Heartburn/Nausea Clonidine HCl (Clonidine Hcl 0.1 Mg Tablet) 0.05 mg PO BID [facility]; Protocol Last Admin: 03/02/24 08:09 Dose: 0.05 mg Clozapine 200 mg/ Clozapine 50 (mg) 250 mg PO DAILY@1930 [facility] Last Admin: 03/01/24 20:58 Dose: 250 mg Docusate Sodium (Docusate Sodium 100 Mg Capsule) 100 mg PO BID [facility] Last Admin: 03/02/24 08:10 Dose: 100 mg Glucose (Glucose Gel 15 Gm Gel..Gram.) 15 gm PO Q15M PRN; Protocol PRN Reason: per Hypoglycemia Standing Ord. Hydroxyzine HCl (Hydroxyzine Hcl 25 Mg Tablet) 25 mg PO Q6H PRN PRN Reason: Anxiety Last Admin: 02/20/24 20:05 Dose: 25 mg Dextrose (D10) 250 mls @ 750 mls/hr IV Q15M PRN; Protocol PRN Reason: per Hypoglycemia Standing Ord. Lactated Ringer's (Lr) 1,000 mls @ 80 mls/hr IVCONT .[id number] [facility] Last Admin: 03/02/24 15:10 Dose: Not Given Insulin Human Lispro (Insulin Lispro 100 Unit/Ml 3 Ml Vial) 0 unit SUBCUT DAILY [facility]; Protocol Last Admin: 03/02/24 08:26 Dose: 2 unit Lorazepam (Lorazepam 1 Mg Tablet) 2 mg PO TID [facility] Last Admin: 03/02/24 15:07 Dose: 2 mg Magnesium Hydroxide (Milk Of Magnesia 30 Ml Oral.Susp) 30 ml PO DAILY PRN PRN Reason: Constipation Last Admin: 01/11/24 12:48 Dose: 30 ml Naloxone HCl (Naloxone Hcl 0.4 Mg/Ml Vial) 0.04 mg IVPUSH Q5M PRN PRN Reason: Excessive sedation or RR < 8 Omeprazole (Omeprazole 20 Mg Capsule.Dr) 20 mg PO DAILY@0630 [facility] Last Admin: 03/01/24 10:02 Dose: 20 mg Polyethylene Glycol (Polyethylene Glycol 3350 17 Gm Powd.Pack) 17 gm PO DAILY [facility] Last Admin: 03/02/24 08:11 Dose: 17 gm Senna (Sennosides 8.6 Mg Tablet) 17.2 mg PO BEDTIME [facility] Last Admin: 03/01/24 20:56 Dose: 17.2 mg Sertraline HCl (Sertraline Hcl 100 Mg Tablet) 100 mg PO DAILY [facility] Last Admin: 03/02/24 08:09 Dose: 100 mg Tamsulosin HCl (Tamsulosin Hcl 0.4 Mg Capsule) 0.4 mg PO BEDTIME [facility] Last Admin: 03/01/24 20:56 Dose: 0.4 mg Trazodone HCl (Trazodone Hcl 50 Mg Tablet) 50 mg PO BEDTIME MRX1 PRN PRN Reason: Insomnia Last Admin: 02/24/24 21:18 Dose: 50 mg Allergies Allergies Allergy/AdvReac Type Severity Reaction Status Date / Time No Known Allergies [NKA] Allergy Unknown NONE Verified 03/01/24 06:35 Assessment & Plan Assessment & Plan (1) Schizophrenia, catatonic: Status: Acute Code(s): F20.2 - Catatonic schizophrenia Plan Patient is a 58-year-old male with a PMH significant for HTN, [id number] type 2 diabetes, BPH, schizoaffective disorder, and depression with catatonia admitted to [facility] with hospitalist consult ECT risk stratification. ECT risk stratification Patient with history of multiple prior ECT without apparent complications No apparent acute medical complaints, vitals and EKG reassuring RCRI class 1 risk, 0 points; no additional cardiac workup indicated Based on patient's history, exam, and EKG, there are no apparent contraindications for the planned procedure Plan 1. The patient remains catatonic, we will schedule for ECT next Monday. 2. Hospitalist already cleared him up after his last fall. 3. Continue one-to-one observation. 4. Continue with Clozaril and benzodiazepines. 5. ECT to be scheduled, we will need to contact his father for consent for the treatment. Finally we got consent and he had his 1st ECT on February 20 6. Ativan was increased up to 2 mg p.o. t.i.d. on February 19 02/24/24 cont plan of care cont ect some improvement noted 02/25/2024 Patient improving continue lorazepam continue ECT encourage out of bed 02/26/24 cont ect lorazepam encourage oob 02/27/24 Improved fx tolerating ect 03/02 remains doing much better; still blunted but good mood and more social, in [place] Patient educated on: diagnosis and ECT Informed Consent: understands Reason for continued inpatient stay Substantial Risk for: rapid decompensation Time Spent With Patient Time: Total time managing care of this patient today ____ minutes.
[2024-03-02 20:00] VITALS: BP 120/65; PULSE 77; RESP 16; TEMP 36.4; O2SAT 97
[2024-03-02 20:44] VITALS: BP 120/65
[2024-03-02] MEDS: cloZAPine 200 MG, cloZAPine 50 MG 250 MG PO (20:44)
[2024-03-02] MEDS: Sennosides 8.6 MG TABLET 17.2 MG PO (20:44)
[2024-03-02] MEDS: Tamsulosin HCL 0.4 MG CAPSULE PO (20:44)
[2024-03-03] MEDS: Omeprazole 20 MG CAPSULE.DR PO (06:28)
[2024-03-03 06:37] LABS: Glucose, Whole Blood 133 mg/dL (60-115)
[2024-03-03 07:59] VITALS: BP 144/68; PULSE 88; RESP 18; TEMP 36.2; O2SAT 96
[2024-03-03] MEDS: LORazepam 1 MG TABLET 2 MG PO ×2 (08:13→15:13)
[2024-03-03] MEDS: Sertraline HCL 100 MG TABLET PO (08:13)
[2024-03-03] MEDS: polyethylene glycoL 3350 17 GM POWD.PACK PO (08:13)
[2024-03-03] MEDS: Docusate Sodium 100 MG CAPSULE PO ×2 (08:13→21:30)
[2024-03-03] MEDS: cloNIDine HCL 0.1 MG TABLET 0.05 MG PO ×2 (08:14→21:30)
--- NOTE | 2024-03-03 18:51 | P.PNPSI_ITS ---
Subjective Subjective Date of Service: 03/03/24 Reason For Visit: catatonia Interim History: met with patient; discussed with team pt says good mood; no complaints; remains much improved. Discussed ECT and pt agrees to continue. Mental Status Exam Mental Status Exam Patient Appearance: Well Grooomed and Appropriate Patient Orientation: Person, Place and Situation Level of Consciousness: Awake and Appropriate Patient Behavior: Appropriate, Cooperative, Passive and Good Eye Contact Mood Description: Calm and Appropriate Affect Description: Calm and Blunted Patient Cognition Impaired: Yes Ability to Follow Directions: Good Speech Pattern: Clear (still with some latency) Hallucinations: None Delusions: Not Present Thought Process: Distracted and Slowed Thinking Thought Content: positive for [place] and positive for Poverty of Content Judgement: Fair Diagnostics Vital Signs (24Hr): Vital Signs - 24 hr 03/02/24 20:00 03/02/24 20:44 03/03/24 07:59 Temperature 97.5 F 97.1 F Pulse Rate 77 88 Respiratory Rate 16 18 Blood Pressure 120/65 120/65 144/68 H Pulse Oximetry 97 96 Oxygen Delivery Method Room Air Room Air BMI result Body Mass Index 29.7 Labs 02/14/24 14:36 02/25/24 08:12 Labs: Laboratory Results - last 48 hr 03/02/24 03/03/24 07:21 06:27 POC Glucose 151 H 133 H Imaging Radiology Impressions: ITS Impressions Chest X-Ray 01/07/24 13:27 IMPRESSION: Bronchial wall thickening may be infectious and/or inflammatory in etiology. Electronically signed by: Marianna Torres MD 01/07/2024 03:31 PM EDT RP Cervical Spine CT 02/13/24 14:54 IMPRESSION: Multilevel spondylosis likely representing DISH without acute fracture or trauma-related listhesis. A acute to subacute fracture of the syndesmophyte formation at C3 cannot be entire excluded. If patient's symptoms persist recommend non-IV contrast MRI cervical spine. Fleischner guidelines were followed. Electronically signed by: Mayank Irwin MD 02/13/2024 03:34 PM EST RP Head CT 02/13/24 14:54 IMPRESSION: No acute fracture, bony calvarium or acute intracranial hemorrhage. Stable brain. Electronically signed by: Mayank Irwin MD 02/13/2024 03:39 PM EST RP Hip CT 02/13/24 14:54 IMPRESSION: No acute fracture or dislocation right coxofemoral joints/right hip. Electronically signed by: Mayank Irwin MD 02/13/2024 03:48 PM EST RP Hip CT 02/13/24 14:54 IMPRESSION: No acute fracture or dislocation, left coxofemoral joint/hip. Electronically signed by: Mayank Irwin MD 02/13/2024 03:44 PM EST RP Cervical Spine MRI 02/14/24 14:41 IMPRESSION: Within the limitations of the study, 1. No definitive evidence of fracture involving the C3 syndesmophyte. 2. Multilevel cervical spondylosis without significant spinal canal stenosis or cord compression. Mild multilevel neural foraminal narrowing as described above. Electronically signed by: Villa Tello MD 02/14/2024 03:51 PM EST RP Chest X-Ray 02/21/24 07:23 IMPRESSION: Unremarkable examination. Electronically signed by: Josse Gregorio MD 02/21/2024 05:53 PM EST RP Medications Medications Current Medications Acetaminophen (Acetaminophen 325 Mg Tablet) 650 mg PO Q6H PRN PRN Reason: Headache/Pain Mild Scale (1-3) Last Admin: 02/14/24 01:05 Dose: 650 mg Al Hydroxide/Mg Hydroxide (Magnesium Hydrox/Alum Hydrox 30 Ml Oral.Susp) 30 ml PO Q6H PRN PRN Reason: Heartburn/Nausea Clonidine HCl (Clonidine Hcl 0.1 Mg Tablet) 0.05 mg PO BID [facility]; Protocol Last Admin: 03/03/24 08:14 Dose: 0.05 mg Clozapine 200 mg/ Clozapine 50 (mg) 250 mg PO DAILY@1930 [facility] Last Admin: 03/02/24 20:44 Dose: 250 mg Docusate Sodium (Docusate Sodium 100 Mg Capsule) 100 mg PO BID [facility] Last Admin: 03/03/24 08:13 Dose: 100 mg Glucose (Glucose Gel 15 Gm Gel..Gram.) 15 gm PO Q15M PRN; Protocol PRN Reason: per Hypoglycemia Standing Ord. Hydroxyzine HCl (Hydroxyzine Hcl 25 Mg Tablet) 25 mg PO Q6H PRN PRN Reason: Anxiety Last Admin: 02/20/24 20:05 Dose: 25 mg Dextrose (D10) 250 mls @ 750 mls/hr IV Q15M PRN; Protocol PRN Reason: per Hypoglycemia Standing Ord. Insulin Human Lispro (Insulin Lispro 100 Unit/Ml 3 Ml Vial) 0 unit SUBCUT DAILY [facility]; Protocol Last Admin: 03/03/24 09:04 Dose: Not Given Lorazepam (Lorazepam 1 Mg Tablet) 2 mg PO TID [facility] Last Admin: 03/03/24 15:13 Dose: 2 mg Magnesium Hydroxide (Milk Of Magnesia 30 Ml Oral.Susp) 30 ml PO DAILY PRN PRN Reason: Constipation Last Admin: 01/11/24 12:48 Dose: 30 ml Naloxone HCl (Naloxone Hcl 0.4 Mg/Ml Vial) 0.04 mg IVPUSH Q5M PRN PRN Reason: Excessive sedation or RR < 8 Omeprazole (Omeprazole 20 Mg Capsule.Dr) 20 mg PO DAILY@0630 [facility] Last Admin: 03/03/24 06:28 Dose: 20 mg Polyethylene Glycol (Polyethylene Glycol 3350 17 Gm Powd.Pack) 17 gm PO DAILY [facility] Last Admin: 03/03/24 08:13 Dose: 17 gm Senna (Sennosides 8.6 Mg Tablet) 17.2 mg PO BEDTIME [facility] Last Admin: 03/02/24 20:44 Dose: 17.2 mg Sertraline HCl (Sertraline Hcl 100 Mg Tablet) 100 mg PO DAILY [facility] Last Admin: 03/03/24 08:13 Dose: 100 mg Tamsulosin HCl (Tamsulosin Hcl 0.4 Mg Capsule) 0.4 mg PO BEDTIME [facility] Last Admin: 03/02/24 20:44 Dose: 0.4 mg Trazodone HCl (Trazodone Hcl 50 Mg Tablet) 50 mg PO BEDTIME MRX1 PRN PRN Reason: Insomnia Last Admin: 02/24/24 21:18 Dose: 50 mg Allergies Allergies Allergy/AdvReac Type Severity Reaction Status Date / Time No Known Allergies [NKA] Allergy Unknown NONE Verified 03/01/24 06:35 Assessment & Plan Assessment & Plan (1) Schizophrenia, catatonic: Status: Acute Code(s): F20.2 - Catatonic schizophrenia Plan Patient is a 58-year-old male with a PMH significant for HTN, [id number] type 2 diabetes, BPH, schizoaffective disorder, and depression with catatonia admitted to [facility] [place] psych with hospitalist consult ECT risk stratification. ECT risk stratification Patient with history of multiple prior ECT without apparent complications No apparent acute medical complaints, vitals and EKG reassuring RCRI class 1 risk, 0 points; no additional cardiac workup indicated Based on patient's history, exam, and EKG, there are no apparent contraindications for the planned procedure Plan 1. The patient remains catatonic, we will schedule for ECT next Monday. 2. Hospitalist already cleared him up after his last fall. 3. Continue one-to-one observation. 4. Continue with Clozaril and benzodiazepines. 5. ECT to be scheduled, we will need to contact his father for consent for the treatment. Finally we got consent and he had his 1st ECT on February 20 6. Ativan was increased up to 2 mg p.o. t.i.d. on February 19 02/24/24 cont plan of care cont ect some improvement noted 02/25/2024 Patient improving continue lorazepam continue ECT encourage out of bed 02/26/24 cont ect lorazepam encourage oob 02/27/24 Improved fx tolerating ect 03/02 remains doing much better; still blunted but good mood and more social, in [place] Patient educated on: diagnosis and ECT Informed Consent: understands Reason for continued inpatient stay Substantial Risk for: rapid decompensation Time Spent With Patient Time: Total time managing care of this patient today ____ minutes.
[2024-03-03 19:53] LABS: Glucose, Whole Blood 80 mg/dL (60-115)
[2024-03-03 20:00] VITALS: BP 127/68; PULSE 85; RESP 16; TEMP 36.4; O2SAT 99
[2024-03-03] MEDS: Tamsulosin HCL 0.4 MG CAPSULE PO (21:29)
[2024-03-03 21:30] VITALS: BP 127/67
[2024-03-03] MEDS: cloZAPine 200 MG, cloZAPine 50 MG 250 MG PO (21:31)
[2024-03-03] MEDS: Sennosides 8.6 MG TABLET 17.2 MG PO (21:32)
[2024-03-04] VITALS (10 sets, daily range): BP systolic 107–170; BP diastolic 63–90; PULSE 72–111; RESP 16–23; TEMP 36–36.8; O2SAT 94–100
[2024-03-04 06:41] LABS: Glucose, Whole Blood 99 mg/dL (60-115)
[2024-03-04] MEDS: Lactated Ringers 1,000 ML 80 ML IVCONT (06:41)
[2024-03-04 06:48] LABS: Glucose, Whole Blood 108 mg/dL (60-115)
--- NOTE | 2024-03-04 07:04 | MHC.SHP ---
Pre-Procedural Eval Section A - 24 Hr Update-Section A only Date of Service: 03/04/24 The patient is an INPATIENT: Yes Changes since office visit: No Cold of Flu in the past 2 weeks, No New Medical Problems, No Changes in Medication and No Patient answered all questions The patient has been examined within 24 hours of the surgical procedure. The History & Physical has been completed within 30 days and I have reviewed it.: Yes Section B - Complete if H&P > 30 days Chief Complaint: catatonia Allergies: Allergies Allergy/AdvReac Type Severity Reaction Status Date / Time No Known Allergies [NKA] Allergy Unknown NONE Verified 03/01/24 06:35 Plan I have reviewed the history and physical and performed a pertinent physical examination on my patient. No changes have occurred unless specified. Time Spent With Patient Time: Total time managing care of this patient today ____ minutes.
--- NOTE | 2024-03-04 07:18 | HO.ECTPROC ---
ECT Procedure Note Diagnosis/Treatment Date of Service: 03/04/24 Diagnosis: Catatonia and Schizoaffective Disorder Previous ECT Date: 03/01/24 Treatment: Series Interval Clinical Notes: The patient is more talkative, alert, answering simple questions, he looks much better, still hypoactive. No side effects with the preivuos ECT. ECT done as usual, he EEG registered over a minute of seizure but it was an artifact, seizure activity noticed until 48s. Woke up well, no complications. Time: Total time managing care of this patient today ____ minutes. ECT Settings Device: THYMATRON DGx Electrode Placement: Bitemporal Program/Pulse Width: 0.50 Energy Percent: 100 Seizure Duration By EEG (in seconds): 48 (artifacts noticed, seizure aciivity noticed until 48s) By Motor Observation (in seconds): 24 Medications Administration General Anesthetic: Etomidate (18) Muscle Relaxant: Succinylcholine (120) Airway Management Airway Management: Bag Mask Ventilation Treatment Recommendations No Changes Recommended: No change Pt Tolerated Procedure w/o Issue: Yes
--- NOTE | 2024-03-04 08:43 | P.CONAN_ITS ---
[facility] Active Problems Active Problems: All Active Problems Schizophrenia, catatonic (Acute) Schizoaffective disorder (Acute) Fall (Acute) Pre-op evaluation (Acute) Catatonia (Acute) Nocturnal hypoxia (Acute) Sleep apnea (Acute) Schizoaffective disorder, depressive type (Acute) Benign prostate hyperplasia (Acute) Essential hypertension (Acute) Right hip pain (Acute) Essential (primary) hypertension (Acute) Diabetes mellitus (Acute) Past Medical History Medical History Schizophrenia, catatonic Mild sleep apnea Nocturnal hypoxia Routine medical exam Joint inflammation of right hand and wrist Status post fall Adult general medical exam Screening for colon cancer Screening for prostate cancer Cough BPH (benign prostatic hyperplasia) Essential (primary) hypertension Diabetes mellitus Family History Family History Mother Cancer Father Kidney agenesis Family history of problems with anesthesia: No Surgical History Surgical History History of colonoscopy (~06/15/21) History of tooth extraction History of root canal procedure History of Problems with Anesthesia: No Social History Social History Household Members: None Housing: Apartment Are you a primary manager wound care to a significant other at home: No Do you presently have visiting nurse or other home services: No Unable to assess alcohol history related to: Unable to respond Alcohol intake: former Comment: 1:1 Patient Tobacco Use Status: Never used Tobacco e-Cigarette/Vaping Use: Never Used Second Hand Smoke Exposure: No service: No Current occupational status: employed Sexual orientation: Straight/Heterosexual Cognitive needs: No Hearing needs: No Vision needs: No Meds Allergies Allergy/AdvReac Type Severity Reaction Status Date / Time No Known Allergies [NKA] Allergy Unknown NONE Verified 03/01/24 06:35 Active Medications: Current Medications Acetaminophen (Acetaminophen 325 Mg Tablet) 650 mg PO Q6H PRN PRN Reason: Headache/Pain Mild Scale (1-3) Last Admin: 02/14/24 01:05 Dose: 650 mg Al Hydroxide/Mg Hydroxide (Magnesium Hydrox/Alum Hydrox 30 Ml Oral.Susp) 30 ml PO Q6H PRN PRN Reason: Heartburn/Nausea Clonidine HCl (Clonidine Hcl 0.1 Mg Tablet) 0.05 mg PO BID [facility]; Protocol Last Admin: 03/03/24 21:30 Dose: 0.05 mg Clozapine 200 mg/ Clozapine 50 (mg) 250 mg PO DAILY@1930 [facility] Last Admin: 03/03/24 21:31 Dose: 250 mg Docusate Sodium (Docusate Sodium 100 Mg Capsule) 100 mg PO BID [facility] Last Admin: 03/03/24 21:30 Dose: 100 mg Glucose (Glucose Gel 15 Gm Gel..Gram.) 15 gm PO Q15M PRN; Protocol PRN Reason: per Hypoglycemia Standing Ord. Hydroxyzine HCl (Hydroxyzine Hcl 25 Mg Tablet) 25 mg PO Q6H PRN PRN Reason: Anxiety Last Admin: 02/20/24 20:05 Dose: 25 mg Dextrose (D10) 250 mls @ 750 mls/hr IV Q15M PRN; Protocol PRN Reason: per Hypoglycemia Standing Ord. Insulin Human Lispro (Insulin Lispro 100 Unit/Ml 3 Ml Vial) 0 unit SUBCUT DAILY [facility]; Protocol Last Admin: 03/03/24 09:04 Dose: Not Given Lorazepam (Lorazepam 1 Mg Tablet) 2 mg PO TID [facility] Last Admin: 03/03/24 21:38 Dose: Not Given Magnesium Hydroxide (Milk Of Magnesia 30 Ml Oral.Susp) 30 ml PO DAILY PRN PRN Reason: Constipation Last Admin: 01/11/24 12:48 Dose: 30 ml Omeprazole (Omeprazole 20 Mg Capsule.Dr) 20 mg PO DAILY@0630 [facility] Last Admin: 03/04/24 05:22 Dose: Not Given Polyethylene Glycol (Polyethylene Glycol 3350 17 Gm Powd.Pack) 17 gm PO DAILY [facility] Last Admin: 03/03/24 08:13 Dose: 17 gm Senna (Sennosides 8.6 Mg Tablet) 17.2 mg PO BEDTIME [facility] Last Admin: 03/03/24 21:32 Dose: 17.2 mg Sertraline HCl (Sertraline Hcl 100 Mg Tablet) 100 mg PO DAILY [facility] Last Admin: 03/03/24 08:13 Dose: 100 mg Tamsulosin HCl (Tamsulosin Hcl 0.4 Mg Capsule) 0.4 mg PO BEDTIME [facility] Last Admin: 03/03/24 21:29 Dose: 0.4 mg Trazodone HCl (Trazodone Hcl 50 Mg Tablet) 50 mg PO BEDTIME MRX1 PRN PRN Reason: Insomnia Last Admin: 02/24/24 21:18 Dose: 50 mg Home Medications ?Medication ?Instructions ?Recorded ?Confirmed ?Last Taken ?Type aripiprazole 5 mg tablet 5 mg PO BEDTIME 01/05/24 01/05/24 01/03/24 History lithium carbonate 300 mg capsule 300 mg PO BID 01/05/24 01/05/24 01/05/24 History omeprazole 20 mg capsule,delayed 20 mg PO DAILY@0630 01/05/24 01/05/24 01/05/24 History release polyethylene glycol 3350 17 17 g PO DAILY 01/05/24 01/05/24 01/05/24 History gram/dose oral powder (Miralax) sennosides 8.6 mg tablet (senna) 17.2 mg PO BEDTIME 01/05/24 01/05/24 01/05/24 History tamsulosin 0.4 mg capsule 0.4 mg PO BEDTIME 01/05/24 01/05/24 01/03/24 History Exam Height,Weight and Vital Signs: Height 5 ft 10 in Weight 93.894 kg Last Vital Signs Temp 96.8 F 03/04/24 08:37 Pulse 98 03/04/24 08:37 Resp 18 03/04/24 08:37 BP 135/86 03/04/24 08:37 Pulse Ox 95 03/04/24 08:15 O2 Del Method Room Air 03/04/24 08:15 O2 Flow Rate 2 03/04/24 07:45 Pertinent Lab Results Pertinent Lab Results: Laboratory Tests 01/05/24 01/05/24 01/05/24 11:49 15:51 18:36 WBC 8.9 RBC 4.82 Hgb 13.9 L Hct 42.6 MCV 88.4 MCH 28.8 MCHC 32.6 RDW 13.2 Plt Count 169 MPV 11.1 Immature Gran % (Auto) 0.6 H Neut % (Auto) 79.4 H Lymph % (Auto) 13.1 L [place] % (Auto) 6.8 Eos % (Auto) 0.0 Baso % (Auto) 0.1 Lymph # (Auto) 1.2 [place] # (Auto) 0.6 Eos # (Auto) 0.0 Baso # (Auto) 0.0 Abs Immat Gran (auto) 0.05 H Absolute Neuts (auto) 7.1 Absolute Nucleated RBC 0.000 Nucleated RBC % (auto) 0.0 Sodium 141 Potassium 4.6 Chloride 106 Carbon Dioxide 27 Anion Gap 13 BUN 23 H Creatinine 1.42 H Estim Creat Clear Calc 64.4 Estimated GFR 51 POC Glucose 90 Random Glucose 82 Fasting Glucose Estimat Average Glucose Hemoglobin A1c % Calcium 9.2 Total Bilirubin 0.6 AST 13 ALT 9 Alkaline Phosphatase 64 Ammonia Total Protein 7.0 Albumin 4.1 TSH Salicylates < 5.0 L Acetaminophen < 3 Clozapine Norclozapine [place] 1.19 Ethyl Alcohol < 10 COVID-19 ([facility]) Negative COVID-19 [facility] See Note 01/07/24 01/12/24 01/14/24 07:36 08:25 08:35 WBC RBC Hgb Hct MCV MCH MCHC RDW Plt Count MPV Immature Gran % (Auto) Neut % (Auto) Lymph % (Auto) [place] % (Auto) Eos % (Auto) Baso % (Auto) Lymph # (Auto) [place] # (Auto) Eos # (Auto) Baso # (Auto) Abs Immat Gran (auto) Absolute Neuts (auto) 4.9 Absolute Nucleated RBC Nucleated RBC % (auto) Sodium 142 Potassium 4.4 Chloride 106 Carbon Dioxide 25 Anion Gap 15 BUN 23 H Creatinine 1.39 1.55 H Estim Creat Clear Calc 65.6 58.8 Estimated GFR 52 46 POC Glucose Random Glucose 132 H Fasting Glucose Estimat Average Glucose Hemoglobin A1c % Calcium 9.2 Total Bilirubin AST ALT Alkaline Phosphatase Ammonia Total Protein Albumin TSH Salicylates Acetaminophen Clozapine Norclozapine [place] 0.90 Ethyl Alcohol COVID-19 ([facility]) COVID-[facility] 01/16/24 01/17/24 01/19/24 10:15 08:14 08:50 WBC RBC Hgb Hct MCV MCH MCHC RDW Plt Count MPV Immature Gran % (Auto) Neut % (Auto) Lymph % (Auto) [place] % (Auto) Eos % (Auto) Baso % (Auto) Lymph # (Auto) [place] # (Auto) Eos # (Auto) Baso # (Auto) Abs Immat Gran (auto) Absolute Neuts (auto) 5.3 Absolute Nucleated RBC Nucleated RBC % (auto) Sodium 144 Potassium 4.3 Chloride 109 H Carbon Dioxide 29 Anion Gap 10 L BUN 24 H Creatinine 1.37 Estim Creat Clear Calc 66.5 Estimated GFR 53 POC Glucose 88 Random Glucose Fasting Glucose 90 Estimat Average Glucose 103 Hemoglobin A1c % 5.2 Calcium 9.4 Total Bilirubin 0.4 AST 15 ALT 12 Alkaline Phosphatase 66 Ammonia Total Protein 6.6 Albumin 3.9 TSH 0.78 Salicylates Acetaminophen Clozapine 353 Norclozapine 196 [place] 0.65 0.89 Ethyl Alcohol COVID-19 ([facility]) COVID-19 [facility] 01/21/24 01/21/24 01/22/24 07:36 12:20 16:09 WBC RBC Hgb Hct MCV MCH MCHC RDW Plt Count MPV Immature Gran % (Auto) Neut % (Auto) Lymph % (Auto) [place] % (Auto) Eos % (Auto) Baso % (Auto) Lymph # (Auto) [place] # (Auto) Eos # (Auto) Baso # (Auto) Abs Immat Gran (auto) Absolute Neuts (auto) Absolute Nucleated RBC Nucleated RBC % (auto) Sodium 141 141 Potassium 3.8 3.8 Chloride 106 107 Carbon Dioxide 26 28 Anion Gap 13 10 L BUN 31 H 29 H Creatinine 1.64 H 1.76 H 1.67 H Estim Creat Clear Calc 55.4 51.6 54.4 Estimated GFR 43 40 42 POC Glucose Random Glucose 173 H 96 Fasting Glucose Estimat Average Glucose Hemoglobin A1c % Calcium 9.3 9.0 Total Bilirubin 0.5 0.4 AST 15 18 ALT 15 10 Alkaline Phosphatase 65 55 Ammonia Total Protein 6.7 6.3 L Albumin 4.0 3.8 TSH Salicylates Acetaminophen Clozapine Norclozapine [place] 1.20 Ethyl Alcohol COVID-19 ([facility]) COVID-19 [facility] 01/23/24 01/24/24 01/24/24 08:05 07:46 16:29 WBC RBC Hgb Hct MCV MCH MCHC RDW Plt Count MPV Immature Gran % (Auto) Neut % (Auto) Lymph % (Auto) [place] % (Auto) Eos % (Auto) Baso % (Auto) Lymph # (Auto) [place] # (Auto) Eos # (Auto) Baso # (Auto) Abs Immat Gran (auto) Absolute Neuts (auto) Absolute Nucleated RBC Nucleated RBC % (auto) Sodium 144 144 Potassium 4.0 4.1 Chloride 107 110 H Carbon Dioxide 29 28 Anion Gap 12 10 L BUN 25 H 22 H Creatinine 1.29 1.37 Estim Creat Clear Calc 70.4 66.3 Estimated GFR 57 53 POC Glucose 106 Random Glucose 91 101 Fasting Glucose Estimat Average Glucose Hemoglobin A1c % Calcium 8.9 8.9 Total Bilirubin AST ALT Alkaline Phosphatase Ammonia Total Protein Albumin TSH Salicylates Acetaminophen Clozapine Norclozapine [place] Ethyl Alcohol COVID-19 ([facility]) COVID-19 [facility] 01/24/24 01/25/24 01/25/24 19:54 06:36 12:42 WBC RBC Hgb Hct MCV MCH MCHC RDW Plt Count MPV Immature Gran % (Auto) Neut % (Auto) Lymph % (Auto) [place] % (Auto) Eos % (Auto) Baso % (Auto) Lymph # (Auto) [place] # (Auto) Eos # (Auto) Baso # (Auto) Abs Immat Gran (auto) Absolute Neuts (auto) Absolute Nucleated RBC Nucleated RBC % (auto) Sodium Potassium Chloride Carbon Dioxide Anion Gap BUN Creatinine Estim Creat Clear Calc Estimated GFR POC Glucose 105 110 159 H Random Glucose Fasting Glucose Estimat Average Glucose Hemoglobin A1c % Calcium Total Bilirubin AST ALT Alkaline Phosphatase Ammonia Total Protein Albumin TSH Salicylates Acetaminophen Clozapine Norclozapine [place] Ethyl Alcohol COVID-19 ([facility]) COVIDDtime 01/25/24 01/25/24 01/26/24 16:48 21:13 06:33 WBC RBC Hgb Hct MCV MCH MCHC RDW Plt Count MPV Immature Gran % (Auto) Neut % (Auto) Lymph % (Auto) [place] % (Auto) Eos % (Auto) Baso % (Auto) Lymph # (Auto) [place] # (Auto) Eos # (Auto) Baso # (Auto) Abs Immat Gran (auto) Absolute Neuts (auto) Absolute Nucleated RBC Nucleated RBC % (auto) Sodium Potassium Chloride Carbon Dioxide Anion Gap BUN Creatinine Estim Creat Clear Calc Estimated GFR POC Glucose 84 118 H 101 Random Glucose Fasting Glucose Estimat Average Glucose Hemoglobin A1c % Calcium Total Bilirubin AST ALT Alkaline Phosphatase Ammonia Total Protein Albumin TSH Salicylates Acetaminophen Clozapine Norclozapine [place] Ethyl Alcohol COVID-19 ([facility]) COVID-19 [facility] 01/26/24 01/26/24 01/26/24 07:56 11:32 16:33 WBC RBC Hgb Hct MCV MCH MCHC RDW Plt Count MPV Immature Gran % (Auto) Neut % (Auto) Lymph % (Auto) [place] % (Auto) Eos % (Auto) Baso % (Auto) Lymph # (Auto) [place] # (Auto) Eos # (Auto) Baso # (Auto) Abs Immat Gran (auto) Absolute Neuts (auto) 3.4 Absolute Nucleated RBC Nucleated RBC % (auto) Sodium Potassium Chloride Carbon Dioxide Anion Gap BUN Creatinine Estim Creat Clear Calc Estimated GFR POC Glucose 97 83 Random Glucose Fasting Glucose Estimat Average Glucose Hemoglobin A1c % Calcium Total Bilirubin AST ALT Alkaline Phosphatase Ammonia Total Protein Albumin TSH Salicylates Acetaminophen Clozapine Norclozapine [place] Ethyl Alcohol COVID-19 ([facility]) COVID-19 [facility] 01/26/24 01/27/24 01/27/24 21:18 06:50 11:13 WBC RBC Hgb Hct MCV MCH MCHC RDW Plt Count MPV Immature Gran % (Auto) Neut % (Auto) Lymph % (Auto) [place] % (Auto) Eos % (Auto) Baso % (Auto) Lymph # (Auto) [place] # (Auto) Eos # (Auto) Baso # (Auto) Abs Immat Gran (auto) Absolute Neuts (auto) Absolute Nucleated RBC Nucleated RBC % (auto) Sodium Potassium Chloride Carbon Dioxide Anion Gap BUN Creatinine Estim Creat Clear Calc Estimated GFR POC Glucose 101 108 99 Random Glucose Fasting Glucose Estimat Average Glucose Hemoglobin A1c % Calcium Total Bilirubin AST ALT Alkaline Phosphatase Ammonia Total Protein Albumin TSH Salicylates Acetaminophen Clozapine Norclozapine [place] Ethyl Alcohol COVID-19 ([facility]) COVID-19 [facility] 01/27/24 01/27/24 01/28/24 16:36 21:31 06:25 WBC RBC Hgb Hct MCV MCH MCHC RDW Plt Count MPV Immature Gran % (Auto) Neut % (Auto) Lymph % (Auto) [place] % (Auto) Eos % (Auto) Baso % (Auto) Lymph # (Auto) [place] # (Auto) Eos # (Auto) Baso # (Auto) Abs Immat Gran (auto) Absolute Neuts (auto) Absolute Nucleated RBC Nucleated RBC % (auto) Sodium Potassium Chloride Carbon Dioxide Anion Gap BUN Creatinine Estim Creat Clear Calc Estimated GFR POC Glucose 80 99 111 Random Glucose Fasting Glucose Estimat Average Glucose Hemoglobin A1c % Calcium Total Bilirubin AST ALT Alkaline Phosphatase Ammonia Total Protein Albumin TSH Salicylates Acetaminophen Clozapine Norclozapine [place] Ethyl Alcohol COVID-19 ([facility]) COVID-19 [facility] 01/28/24 01/28/24 01/28/24 07:21 11:32 19:53 WBC RBC Hgb Hct MCV MCH MCHC RDW Plt Count MPV Immature Gran % (Auto) Neut % (Auto) Lymph % (Auto) [place] % (Auto) Eos % (Auto) Baso % (Auto) Lymph # (Auto) [place] # (Auto) Eos # (Auto) Baso # (Auto) Abs Immat Gran (auto) Absolute Neuts (auto) Absolute Nucleated RBC Nucleated RBC % (auto) Sodium Potassium Chloride Carbon Dioxide Anion Gap BUN Creatinine 1.48 H Estim Creat Clear Calc 61.8 Estimated GFR 48 POC Glucose 93 123 H Random Glucose Fasting Glucose Estimat Average Glucose Hemoglobin A1c % Calcium Total Bilirubin AST ALT Alkaline Phosphatase Ammonia Total Protein Albumin TSH Salicylates Acetaminophen Clozapine Norclozapine [place] Ethyl Alcohol COVID-19 ([facility]) COVID-19 [facility] 01/29/24 01/29/24 01/30/24 06:32 19:56 06:34 WBC RBC Hgb Hct MCV MCH MCHC RDW Plt Count MPV Immature Gran % (Auto) Neut % (Auto) Lymph % (Auto) [place] % (Auto) Eos % (Auto) Baso % (Auto) Lymph # (Auto) [place] # (Auto) Eos # (Auto) Baso # (Auto) Abs Immat Gran (auto) Absolute Neuts (auto) Absolute Nucleated RBC Nucleated RBC % (auto) Sodium Potassium Chloride Carbon Dioxide Anion Gap BUN Creatinine Estim Creat Clear Calc Estimated GFR POC Glucose 109 148 H 109 Random Glucose Fasting Glucose Estimat Average Glucose Hemoglobin A1c % Calcium Total Bilirubin AST ALT Alkaline Phosphatase [place] Total Protein Albumin TSH Salicylates Acetaminophen Clozapine Norclozapine [place] Ethyl Alcohol COVID-19 ([facility]) COVID-19 [facility] 01/31/24 02/01/24 02/02/24 06:35 06:09 06:19 WBC RBC Hgb Hct MCV MCH MCHC RDW Plt Count MPV Immature Gran % (Auto) Neut % (Auto) Lymph % (Auto) [place] % (Auto) Eos % (Auto) Baso % (Auto) Lymph # (Auto) [place] # (Auto) Eos # (Auto) Baso # (Auto) Abs Immat Gran (auto) Absolute Neuts (auto) Absolute Nucleated RBC Nucleated RBC % (auto) Sodium Potassium Chloride Carbon Dioxide Anion Gap BUN Creatinine Estim Creat Clear Calc Estimated GFR POC Glucose 98 101 102 Random Glucose Fasting Glucose Estimat Average Glucose Hemoglobin A1c % Calcium Total Bilirubin AST ALT Alkaline Phosphatase Ammon[place] Total Protein Albumin TSH Salicylates Acetaminophen Clozapine Norclozapine [place] Ethyl Alcohol COVID-19 ([facility]) COVID-19 [facility] 02/02/24 02/03/24 02/04/24 08:25 06:37 06:46 WBC RBC Hgb Hct MCV MCH MCHC RDW Plt Count MPV Immature Gran % (Auto) Neut % (Auto) Lymph % (Auto) [place] % (Auto) Eos % (Auto) Baso % (Auto) Lymph # (Auto) [place] # (Auto) Eos # (Auto) Baso # (Auto) Abs Immat Gran (auto) Absolute Neuts (auto) 3.3 Absolute Nucleated RBC Nucleated RBC % (auto) Sodium Potassium Chloride Carbon Dioxide Anion Gap BUN Creatinine Estim Creat Clear Calc Estimated GFR POC Glucose 95 98 Random Glucose Fasting Glucose Estimat Average Glucose Hemoglobin A1c % Calcium Total Bilirubin AST ALT Alkaline Phosphatase [place] Total Protein Albumin TSH Salicylates Acetaminophen Clozapine Norclozapine [place] Ethyl Alcohol COVID-19 ([facility]) COVIDcitibuddies19 [facility] 02/04/24 02/05/24 02/06/24 07:17 06:37 06:46 WBC RBC Hgb Hct MCV MCH MCHC RDW Plt Count MPV Immature Gran % (Auto) Neut % (Auto) Lymph % (Auto) [place] % (Auto) Eos % (Auto) Baso % (Auto) Lymph # (Auto) [place] # (Auto) Eos # (Auto) Baso # (Auto) Abs Immat Gran (auto) Absolute Neuts (auto) Absolute Nucleated RBC Nucleated RBC % (auto) Sodium Potassium Chloride Carbon Dioxide Anion Gap BUN Creatinine 1.32 Estim Creat Clear Calc 69.3 Estimated GFR 55 POC Glucose 94 103 Random Glucose Fasting Glucose Estimat Average Glucose Hemoglobin A1c % Calcium Total Bilirubin AST ALT Alkaline Phosphatase [place] Total Protein Albumin TSH Salicylates Acetaminophen Clozapine Norclozapine [place] Ethyl Alcohol COVID-19 ([facility]) COVID-19 [facility] 02/07/24 02/08/24 02/09/24 06:57 06:32 06:40 WBC RBC Hgb Hct MCV MCH MCHC RDW Plt Count MPV Immature Gran % (Auto) Neut % (Auto) Lymph % (Auto) [place] % (Auto) Eos % (Auto) Baso % (Auto) Lymph # (Auto) [place] # (Auto) Eos # (Auto) Baso # (Auto) Abs Immat Gran (auto) Absolute Neuts (auto) Absolute Nucleated RBC Nucleated RBC % (auto) Sodium Potassium Chloride Carbon Dioxide Anion Gap BUN Creatinine Estim Creat Clear Calc Estimated GFR POC Glucose 118 H 117 H 121 H Random Glucose Fasting Glucose Estimat Average Glucose Hemoglobin A1c % Calcium Total Bilirubin AST ALT Alkaline Phosphatase [place] Total Protein Albumin TSH Salicylates Acetaminophen Clozapine Norclozapine [place] Ethyl Alcohol COVID-19 ([facility]) COVID-19 [facility] 02/09/24 02/10/24 02/11/24 07:57 06:31 06:50 WBC RBC Hgb Hct MCV MCH MCHC RDW Plt Count MPV Immature Gran % (Auto) Neut % (Auto) Lymph % (Auto) [place] % (Auto) Eos % (Auto) Baso % (Auto) Lymph # (Auto) [place] # (Auto) Eos # (Auto) Baso # (Auto) Abs Immat Gran (auto) Absolute Neuts (auto) 3.9 Absolute Nucleated RBC Nucleated RBC % (auto) Sodium Potassium Chloride Carbon Dioxide Anion Gap BUN Creatinine Estim Creat Clear Calc Estimated GFR POC Glucose 110 114 Random Glucose Fasting Glucose Estimat Average Glucose Hemoglobin A1c % Calcium Total Bilirubin AST ALT Alkaline Phosphatase [place] Total Protein Albumin TSH Salicylates Acetaminophen Clozapine Norclozapine [place] Ethyl Alcohol COVID-19 ([facility]) COVID-19 [facility] 02/11/24 02/12/24 02/12/24 10:16 06:36 10:14 WBC RBC Hgb Hct MCV MCH MCHC RDW Plt Count MPV Immature Gran % (Auto) Neut % (Auto) Lymph % (Auto) [place] % (Auto) Eos % (Auto) Baso % (Auto) Lymph # (Auto) [place] # (Auto) Eos # (Auto) Baso # (Auto) Abs Immat Gran (auto) Absolute Neuts (auto) Absolute Nucleated RBC Nucleated RBC % (auto) Sodium Potassium Chloride Carbon Dioxide Anion Gap BUN Creatinine 1.21 Estim Creat Clear Calc 75.8 Estimated GFR > 60 POC Glucose 130 H 102 Random Glucose Fasting Glucose Estimat Average Glucose Hemoglobin A1c % Calcium Total Bilirubin AST ALT Alkaline Phosphatase [place] Total Protein Albumin TSH Salicylates Acetaminophen Clozapine Norclozapine [place] Ethyl Alcohol COVID-19 ([facility]) COVID-19 [facility] 02/13/24 02/13/24 02/13/24 07:10 14:35 19:44 WBC RBC Hgb Hct MCV MCH MCHC RDW Plt Count MPV Immature Gran % (Auto) Neut % (Auto) Lymph % (Auto) [place] % (Auto) Eos % (Auto) Baso % (Auto) Lymph # (Auto) [place] # (Auto) Eos # (Auto) Baso # (Auto) Abs Immat Gran (auto) Absolute Neuts (auto) Absolute Nucleated RBC Nucleated RBC % (auto) Sodium Potassium Chloride Carbon Dioxide Anion Gap BUN Creatinine Estim Creat Clear Calc Estimated GFR POC Glucose 115 89 105 Random Glucose Fasting Glucose Estimat Average Glucose Hemoglobin A1c % Calcium Total Bilirubin AST ALT Alkaline Phosphatase [place] Total Protein Albumin TSH Salicylates Acetaminophen Clozapine Norclozapine [place] Ethyl Alcohol COVID-19 ([facility]) COVID-19 [facility] 02/14/24 02/14/24 02/15/24 06:30 14:36 06:36 WBC 6.9 RBC 4.34 L Hgb 12.5 L Hct 37.5 L MCV 86.4 MCH 28.8 MCHC 33.3 RDW 12.7 Plt Count 130 L MPV 11.0 Immature Gran % (Auto) 0.3 Neut % (Auto) 71.4 Lymph % (Auto) 19.9 L [place] % (Auto) 8.3 Eos % (Auto) 0.0 Baso % (Auto) 0.1 Lymph # (Auto) 1.4 [place] # (Auto) 0.6 Eos # (Auto) 0.0 Baso # (Auto) 0.0 Abs Immat Gran (auto) 0.02 Absolute Neuts (auto) 4.9 Absolute Nucleated RBC 0.000 Nucleated RBC % (auto) 0.0 Sodium 144 Potassium 3.8 Chloride 110 H Carbon Dioxide 23 Anion Gap 15 BUN 21 H Creatinine 1.30 Estim Creat Clear Calc 70.5 Estimated GFR 56 POC Glucose 111 99 Random Glucose Fasting Glucose 99 Estimat Average Glucose Hemoglobin A1c % Calcium 9.1 Total Bilirubin 0.5 AST 26 ALT 13 Alkaline Phosphatase 63 Ammonia 39 Total Protein 6.4 L Albumin 3.8 TSH 0.92 Salicylates Acetaminophen Clozapine Norclozapine [place] Ethyl Alcohol COVID-19 ([facility]) COVID-19 [facility] 02/16/24 02/16/24 02/16/24 06:34 07:03 10:11 WBC RBC Hgb Hct MCV MCH MCHC RDW Plt Count MPV Immature Gran % (Auto) Neut % (Auto) Lymph % (Auto) [place] % (Auto) Eos % (Auto) Baso % (Auto) Lymph # (Auto) [place] # (Auto) Eos # (Auto) Baso # (Auto) Abs Immat Gran (auto) Absolute Neuts (auto) 4.5 Absolute Nucleated RBC Nucleated RBC % (auto) Sodium Potassium Chloride Carbon Dioxide Anion Gap BUN Creatinine Estim Creat Clear Calc Estimated GFR POC Glucose 67 78 Random Glucose Fasting Glucose Estimat Average Glucose Hemoglobin A1c % Calcium Total Bilirubin AST ALT Alkaline Phosphatase [place] Total Protein Albumin TSH Salicylates Acetaminophen Clozapine Norclozapine [place] Ethyl Alcohol COVID-19 ([facility]) Chemo Beanies[facility] 02/17/24 02/18/24 02/18/24 06:24 06:45 08:19 WBC RBC Hgb Hct MCV MCH MCHC RDW Plt Count MPV Immature Gran % (Auto) Neut % (Auto) Lymph % (Auto) [place] % (Auto) Eos % (Auto) Baso % (Auto) Lymph # (Auto) [place] # (Auto) Eos # (Auto) Baso # (Auto) Abs Immat Gran (auto) Absolute Neuts (auto) Absolute Nucleated RBC Nucleated RBC % (auto) Sodium Potassium Chloride Carbon Dioxide Anion Gap BUN Creatinine 1.48 H Estim Creat Clear Calc 61.2 Estimated GFR 48 POC Glucose 88 114 Random Glucose Fasting Glucose Estimat Average Glucose Hemoglobin A1c % Calcium Total Bilirubin AST ALT Alkaline Phosphatase [place] Total Protein Albumin TSH Salicylates Acetaminophen Clozapine Norclozapine [place] Ethyl Alcohol COVID-19 ([facility]) COVID-[facility]ince 02/19/24 02/20/24 02/21/24 06:40 06:33 06:48 WBC RBC Hgb Hct MCV MCH MCHC RDW Plt Count MPV Immature Gran % (Auto) Neut % (Auto) Lymph % (Auto) [place] % (Auto) Eos % (Auto) Baso % (Auto) Lymph # (Auto) [place] # (Auto) Eos # (Auto) Baso # (Auto) Abs Immat Gran (auto) Absolute Neuts (auto) Absolute Nucleated RBC Nucleated RBC % (auto) Sodium Potassium Chloride Carbon Dioxide Anion Gap BUN Creatinine Estim Creat Clear Calc Estimated GFR POC Glucose 111 117 H 134 H Random Glucose Fasting Glucose Estimat Average Glucose Hemoglobin A1c % Calcium Total Bilirubin AST ALT Alkaline Phosphatase [place] Total Protein Albumin TSH Salicylates Acetaminophen Clozapine Norclozapine [place] Ethyl Alcohol COVID-19 ([facility]) COVID-19 [facility] 02/22/24 02/23/24 02/24/24 06:22 08:01 06:52 WBC RBC Hgb Hct MCV MCH MCHC RDW Plt Count MPV Immature Gran % (Auto) Neut % (Auto) Lymph % (Auto) [place] % (Auto) Eos % (Auto) Baso % (Auto) Lymph # (Auto) [place] # (Auto) Eos # (Auto) Baso # (Auto) Abs Immat Gran (auto) Absolute Neuts (auto) 3.9 Absolute Nucleated RBC Nucleated RBC % (auto) Sodium Potassium Chloride Carbon Dioxide Anion Gap BUN Creatinine Estim Creat Clear Calc Estimated GFR POC Glucose 121 H 123 H Random Glucose Fasting Glucose Estimat Average Glucose Hemoglobin A1c % Calcium Total Bilirubin AST ALT Alkaline Phosphatase [place] Total Protein Albumin TSH Salicylates Acetaminophen Clozapine Norclozapine [place] Ethyl Alcohol COVID-19 ([facility]) Chemo Beanies[facility]ince 02/25/24 02/25/24 02/26/24 07:00 08:12 06:23 WBC RBC Hgb Hct MCV MCH MCHC RDW Plt Count MPV Immature Gran % (Auto) Neut % (Auto) Lymph % (Auto) [place] % (Auto) Eos % (Auto) Baso % (Auto) Lymph # (Auto) [place] # (Auto) Eos # (Auto) Baso # (Auto) Abs Immat Gran (auto) Absolute Neuts (auto) Absolute Nucleated RBC Nucleated RBC % (auto) Sodium Potassium Chloride Carbon Dioxide Anion Gap BUN Creatinine 1.32 Estim Creat Clear Calc 67.7 Estimated GFR 55 POC Glucose 124 H 106 Random Glucose Fasting Glucose Estimat Average Glucose Hemoglobin A1c % Calcium Total Bilirubin AST ALT Alkaline Phosphatase Ammonia Total Protein Albumin TSH Salicylates Acetaminophen Clozapine Norclozapine [place] Ethyl Alcohol COVID-19 (SHAKA) Chemo Beanies[facility] 02/26/24 02/27/24 02/28/24 13:44 06:31 06:57 WBC RBC Hgb Hct MCV MCH MCHC RDW Plt Count MPV Immature Gran % (Auto) Neut % (Auto) Lymph % (Auto) [place] % (Auto) Eos % (Auto) Baso % (Auto) Lymph # (Auto) [place] # (Auto) Eos # (Auto) Baso # (Auto) Abs Immat Gran (auto) Absolute Neuts (auto) Absolute Nucleated RBC Nucleated RBC % (auto) Sodium Potassium Chloride Carbon Dioxide Anion Gap BUN Creatinine Estim Creat Clear Calc Estimated GFR POC Glucose 86 111 111 Random Glucose Fasting Glucose Estimat Average Glucose Hemoglobin A1c % Calcium Total Bilirubin AST ALT Alkaline Phosphatase Ammonia Total Protein Albumin TSH Salicylates Acetaminophen Clozapine Norclozapine [place] Ethyl Alcohol COVID-19 ([facility]) COVID-19 [facility] 02/29/24 03/01/24 03/01/24 06:41 06:26 14:02 WBC RBC Hgb Hct MCV MCH MCHC RDW Plt Count MPV Immature Gran % (Auto) Neut % (Auto) Lymph % (Auto) [place] % (Auto) Eos % (Auto) Baso % (Auto) Lymph # (Auto) [place] # (Auto) Eos # (Auto) Baso # (Auto) Abs Immat Gran (auto) Absolute Neuts (auto) 3.7 Absolute Nucleated RBC Nucleated RBC % (auto) Sodium Potassium Chloride Carbon Dioxide Anion Gap BUN Creatinine Estim Creat Clear Calc Estimated GFR POC Glucose 122 H 113 Random Glucose Fasting Glucose Estimat Average Glucose Hemoglobin A1c % Calcium Total Bilirubin AST ALT Alkaline Phosphatase Ammonia Total Protein Albumin TSH Salicylates Acetaminophen Clozapine Norclozapine [place] Ethyl Alcohol COVID-19 ([facility]) COVID-19 [facility] 03/01/24 03/02/24 03/03/24 14:02 07:21 06:27 WBC RBC Hgb Hct MCV MCH MCHC RDW Plt Count MPV Immature Gran % (Auto) Neut % (Auto) Lymph % (Auto) [place] % (Auto) Eos % (Auto) Baso % (Auto) Lymph # (Auto) [place] # (Auto) Eos # (Auto) Baso # (Auto) Abs Immat Gran (auto) Absolute Neuts (auto) Cancelled Absolute Nucleated RBC Nucleated RBC % (auto) Sodium Potassium Chloride Carbon Dioxide Anion Gap BUN Creatinine Estim Creat Clear Calc Estimated GFR POC Glucose 151 H 133 H Random Glucose Fasting Glucose Estimat Average Glucose Hemoglobin A1c % Calcium Total Bilirubin AST ALT Alkaline Phosphatase Ammonia Total Protein Albumin TSH Salicylates Acetaminophen Clozapine Norclozapine [place] Ethyl Alcohol COVID-19 ([facility]) COVID-19 [facility] 03/03/24 03/04/24 03/04/24 19:46 05:45 06:37 WBC RBC Hgb Hct MCV MCH MCHC RDW Plt Count MPV Immature Gran % (Auto) Neut % (Auto) Lymph % (Auto) [place] % (Auto) Eos % (Auto) Baso % (Auto) Lymph # (Auto) [place] # (Auto) Eos # (Auto) Baso # (Auto) Abs Immat Gran (auto) Absolute Neuts (auto) Absolute Nucleated RBC Nucleated RBC % (auto) Sodium Potassium Chloride Carbon Dioxide Anion Gap BUN Creatinine Estim Creat Clear Calc Estimated GFR POC Glucose 80 108 99 Random Glucose Fasting Glucose Estimat Average Glucose Hemoglobin A1c % Calcium Total Bilirubin AST ALT Alkaline Phosphatase Ammonia Total Protein Albumin TSH Salicylates Acetaminophen Clozapine Norclozapine [place] Ethyl Alcohol COVID-19 ([facility]) COVID-19 Clin Com Airway Mallampati Class: IV TM Dist: >3cm Neck ROM: Full Assessment and Plan Final Anesthetic Review Family History of Problems with Anesthesia: No History of Problems with Anesthesia: No NPO: Yes ASA Class: III Final Preanesthetic Review: No Changes in Pt Med Stat, Meds/Allgs Chart Reviewed, Consent Obtained/Reviewed and Anes Risks/Benef Reviewed Patient Risk: Intermediate Procedure Risk: Low Anesthetic Plan Anesthetic Plan: GA Disposition: Standard PACU
[2024-03-04] MEDS: Sertraline HCL 100 MG TABLET PO (08:52)
[2024-03-04] MEDS: Docusate Sodium 100 MG CAPSULE PO ×2 (08:52→20:31)
[2024-03-04] MEDS: cloNIDine HCL 0.1 MG TABLET 0.05 MG PO ×2 (08:52→20:31)
[2024-03-04] MEDS: polyethylene glycoL 3350 17 GM POWD.PACK PO (08:53)
[2024-03-04] MEDS: LORazepam 1 MG TABLET 2 MG PO ×3 (11:17→20:31)
--- NOTE | 2024-03-04 17:45 | HO.PSYCHPN ---
Subjective Subjective Date of Service: 03/04/24 Reason For Visit: catatonia Diagnostics Vital Signs (24Hr): Vital Signs - 24 hr 03/03/24 20:00 03/03/24 21:30 03/04/24 05:50 Temperature 97.5 F 97.9 F Pulse Rate 85 72 Respiratory Rate 16 16 Blood Pressure 127/68 127/67 139/68 Pulse Oximetry 99 97 Oxygen Delivery Method Room Air Oxygen Flow Rate 03/04/24 06:24 03/04/24 07:30 03/04/24 07:35 Temperature 97.0 F 98.2 F Pulse Rate 72 102 H 111 H Respiratory Rate 16 22 H 23 H Blood Pressure 135/77 170/90 H 154/84 H Pulse Oximetry 97 100 99 Oxygen Delivery Method Room Air Nasal Cannula Nasal Cannula Oxygen Flow Rate 4 4 03/04/24 07:40 03/04/24 07:45 03/04/24 08:00 Temperature Pulse Rate 109 H 108 H 102 H Respiratory Rate 22 H 22 H 20 Blood Pressure 141/83 H 153/86 H 136/84 Pulse Oximetry 99 99 99 Oxygen Delivery Method Nasal Cannula Nasal Cannula Room Air Oxygen Flow Rate 2 2 03/04/24 08:00 03/04/24 08:15 03/04/24 08:37 Temperature 96.8 F 98.2 F 96.8 F Pulse Rate 98 101 H 98 Respiratory Rate 18 20 18 Blood Pressure 135/86 133/80 135/86 Pulse Oximetry 96 95 Oxygen Delivery Method Room Air Room Air Oxygen Flow Rate BMI result Body Mass Index 29.7 Labs 02/14/24 14:36 02/25/24 08:12 Labs: Laboratory Results - last 48 hr 03/03/24 03/03/24 03/04/24 06:27 19:46 05:45 POC Glucose 133 H 80 108 03/04/24 06:37 POC Glucose 99 Imaging Radiology Impressions: ITS Impressions Chest X-Ray 01/07/24 13:27 IMPRESSION: Bronchial wall thickening may be infectious and/or inflammatory in etiology. Electronically signed by: Marianna Torres MD 01/07/2024 03:31 PM EDT RP Cervical Spine CT 02/13/24 14:54 IMPRESSION: Multilevel spondylosis likely representing DISH without acute fracture or trauma-related listhesis. A acute to subacute fracture of the syndesmophyte formation at C3 cannot be entire excluded. If patient's symptoms persist recommend non-IV contrast MRI cervical spine. Fleischner guidelines were followed. Electronically signed by: Mayank Irwin MD 02/13/2024 03:34 PM EST RP Head CT 02/13/24 14:54 IMPRESSION: No acute fracture, bony calvarium or acute intracranial hemorrhage. Stable brain. Electronically signed by: Mayank Irwin MD 02/13/2024 03:39 PM EST RP Hip CT 02/13/24 14:54 IMPRESSION: No acute fracture or dislocation right coxofemoral joints/right hip. Electronically signed by: Mayank Irwin MD 02/13/2024 03:48 PM EST RP Hip CT 02/13/24 14:54 IMPRESSION: No acute fracture or dislocation, left coxofemoral joint/hip. Electronically signed by: Mayank Irwin MD 02/13/2024 03:44 PM EST RP Cervical Spine MRI 02/14/24 14:41 IMPRESSION: Within the limitations of the study, 1. No definitive evidence of fracture involving the C3 syndesmophyte. 2. Multilevel cervical spondylosis without significant spinal canal stenosis or cord compression. Mild multilevel neural foraminal narrowing as described above. Electronically signed by: Villa Tello MD 02/14/2024 03:51 PM EST RP Chest X-Ray 02/21/24 07:23 IMPRESSION: Unremarkable examination. Electronically signed by: Josse Gregorio MD 02/21/2024 05:53 PM EST RP Medications Medications Current Medications Acetaminophen (Acetaminophen 325 Mg Tablet) 650 mg PO Q6H PRN PRN Reason: Headache/Pain Mild Scale (1-3) Last Admin: 02/14/24 01:05 Dose: 650 mg Al Hydroxide/Mg Hydroxide (Magnesium Hydrox/Alum Hydrox 30 Ml Oral.Susp) 30 ml PO Q6H PRN PRN Reason: Heartburn/Nausea Clonidine HCl (Clonidine Hcl 0.1 Mg Tablet) 0.05 mg PO BID KRISTIN; Protocol Last Admin: 03/04/24 08:52 Dose: 0.05 mg Clozapine 200 mg/ Clozapine 50 (mg) 250 mg PO DAILY@1930 [facility] Last Admin: 03/03/24 21:31 Dose: 250 mg Docusate Sodium (Docusate Sodium 100 Mg Capsule) 100 mg PO BID [facility] Last Admin: 03/04/24 08:52 Dose: 100 mg Glucose (Glucose Gel 15 Gm Gel..Gram.) 15 gm PO Q15M PRN; Protocol PRN Reason: per Hypoglycemia Standing Ord. Hydroxyzine HCl (Hydroxyzine Hcl 25 Mg Tablet) 25 mg PO Q6H PRN PRN Reason: Anxiety Last Admin: 02/20/24 20:05 Dose: 25 mg Dextrose (D10) 250 mls @ 750 mls/hr IV Q15M PRN; Protocol PRN Reason: per Hypoglycemia Standing Ord. Insulin Human Lispro (Insulin Lispro 100 Unit/Ml 3 Ml Vial) 0 unit SUBCUT DAILY [facility]; Protocol Last Admin: 03/04/24 09:59 Dose: Not Given Lorazepam (Lorazepam 1 Mg Tablet) 2 mg PO TID [facility] Last Admin: 03/04/24 14:50 Dose: 2 mg Magnesium Hydroxide (Milk Of Magnesia 30 Ml Oral.Susp) 30 ml PO DAILY PRN PRN Reason: Constipation Last Admin: 01/11/24 12:48 Dose: 30 ml Naloxone HCl (Naloxone Hcl 0.4 Mg/Ml Vial) 0.04 mg IVPUSH Q5M PRN PRN Reason: Excessive sedation or RR < 8 Omeprazole (Omeprazole 20 Mg Capsule.Dr) 20 mg PO DAILY@0630 [facility] Last Admin: 03/04/24 05:22 Dose: Not Given Polyethylene Glycol (Polyethylene Glycol 3350 17 Gm Powd.Pack) 17 gm PO DAILY [facility] Last Admin: 03/04/24 08:53 Dose: 17 gm Senna (Sennosides 8.6 Mg Tablet) 17.2 mg PO BEDTIME [facility] Last Admin: 03/03/24 21:32 Dose: 17.2 mg Sertraline HCl (Sertraline Hcl 100 Mg Tablet) 100 mg PO DAILY [facility] Last Admin: 03/04/24 08:52 Dose: 100 mg Tamsulosin HCl (Tamsulosin Hcl 0.4 Mg Capsule) 0.4 mg PO BEDTIME [facility] Last Admin: 03/03/24 21:29 Dose: 0.4 mg Trazodone HCl (Trazodone Hcl 50 Mg Tablet) 50 mg PO BEDTIME MRX1 PRN PRN Reason: Insomnia Last Admin: 02/24/24 21:18 Dose: 50 mg Allergies Allergies Allergy/AdvReac Type Severity Reaction Status Date / Time No Known Allergies [NKA] Allergy Unknown NONE Verified 03/01/24 06:35 Assessment & Plan Assessment & Plan (1) Schizophrenia, catatonic: Status: Acute Code(s): F20.2 - Catatonic schizophrenia Plan Patient is a 58-year-old male with a PMH significant for HTN, [id number] type 2 diabetes, BPH, schizoaffective disorder, and depression with catatonia admitted to [facility] with hospitalist consult ECT risk stratification. ECT risk stratification Patient with history of multiple prior ECT without apparent complications No apparent acute medical complaints, vitals and EKG reassuring RCRI class 1 risk, 0 points; no additional cardiac workup indicated Based on patient's history, exam, and EKG, there are no apparent contraindications for the planned procedure Plan 1. The patient remains catatonic, we will schedule for ECT next Monday. 2. Hospitalist already cleared him up after his last fall. 3. Continue one-to-one observation. 4. Continue with Clozaril and benzodiazepines. 5. ECT to be scheduled, we will need to contact his father for consent for the treatment. Finally we got consent and he had his 1st ECT on February 20 6. Ativan was increased up to 2 mg p.o. t.i.d. on February 19 02/24/24 cont plan of care cont ect some improvement noted 02/25/2024 Patient improving continue lorazepam continue ECT encourage out of bed 02/26/24 cont ect lorazepam encourage oob 02/27/24 Improved fx tolerating ect 03/02 remains doing much better; still blunted but good mood and more social, in [place] Time Spent With Patient Time: Total time managing care of this patient today ____ minutes.
[2024-03-04] MEDS: Sennosides 8.6 MG TABLET 17.2 MG PO (20:31)
[2024-03-04] MEDS: Tamsulosin HCL 0.4 MG CAPSULE PO (20:31)
[2024-03-04] MEDS: cloZAPine 200 MG, cloZAPine 50 MG 250 MG PO (20:31)
[2024-03-05] MEDS: Omeprazole 20 MG CAPSULE.DR PO (06:38)
[2024-03-05 07:06] LABS: Glucose, Whole Blood 105 mg/dL (60-115)
[2024-03-05 08:00] VITALS: BP 108/73; PULSE 89; RESP 16; TEMP 36.6; O2SAT 95
[2024-03-05] MEDS: Sertraline HCL 100 MG TABLET PO (08:43)
[2024-03-05] MEDS: cloNIDine HCL 0.1 MG TABLET 0.05 MG PO ×2 (08:43→20:22)
[2024-03-05] MEDS: LORazepam 1 MG TABLET 2 MG PO (08:43)
[2024-03-05] MEDS: Docusate Sodium 100 MG CAPSULE PO ×2 (08:43→20:23)
[2024-03-05] MEDS: polyethylene glycoL 3350 17 GM POWD.PACK PO (11:51)
[2024-03-05 13:17] VITALS: BP 108/60; PULSE 84; RESP 16; TEMP 36; O2SAT 97
[2024-03-05 13:18] VITALS: BMI 31.0
[2024-03-05 20:00] VITALS: BP 124/64; PULSE 78; RESP 15; TEMP 36.5; O2SAT 98
[2024-03-05 20:22] VITALS: BP 108/73
[2024-03-05] MEDS: cloZAPine 200 MG, cloZAPine 50 MG 250 MG PO (20:22)
[2024-03-05] MEDS: Sennosides 8.6 MG TABLET 17.2 MG PO (20:23)
[2024-03-05] MEDS: Tamsulosin HCL 0.4 MG CAPSULE PO (20:23)
--- NOTE | 2024-03-05 21:54 | P.PNPSI_ITS ---
Subjective Subjective Date of Service: 03/05/24 Reason For Visit: catatonia Interim History: for a short time, pt felt dizzy, little unsteady gait; not sure if only after standing up quickly; resolved on it's own focused neuro exam CN2-12 grossly intact cerebellar function intact Diagnostics Vital Signs (24Hr): Vital Signs - 24 hr 03/05/24 08:00 03/05/24 13:17 03/05/24 20:00 Temperature 98 F 96.8 F 97.7 F Pulse Rate 89 84 78 Respiratory Rate 16 16 15 Blood Pressure 108/73 108/60 124/64 Pulse Oximetry 95 97 98 Oxygen Delivery Method Room Air Room Air Room Air 03/05/24 20:22 Temperature Pulse Rate Respiratory Rate Blood Pressure 108/73 Pulse Oximetry Oxygen Delivery Method BMI result Body Mass Index 31.0 Labs 02/14/24 14:36 02/25/24 08:12 Labs: Laboratory Results - last 48 hr 03/04/24 03/04/24 03/05/24 05:45 06:37 06:39 POC Glucose 108 99 105 Imaging Radiology Impressions: ITS Impressions Chest X-Ray 01/07/24 13:27 IMPRESSION: Bronchial wall thickening may be infectious and/or inflammatory in etiology. Electronically signed by: Marianna Torres MD 01/07/2024 03:31 PM EDT RP Cervical Spine CT 02/13/24 14:54 IMPRESSION: Multilevel spondylosis likely representing DISH without acute fracture or trauma-related listhesis. A acute to subacute fracture of the syndesmophyte formation at C3 cannot be entire excluded. If patient's symptoms persist recommend non-IV contrast MRI cervical spine. Fleischner guidelines were followed. Electronically signed by: Mayank Irwin MD 02/13/2024 03:34 PM EST RP Head CT 02/13/24 14:54 IMPRESSION: No acute fracture, bony calvarium or acute intracranial hemorrhage. Stable brain. Electronically signed by: Mayank Irwin MD 02/13/2024 03:39 PM EST RP Hip CT 02/13/24 14:54 IMPRESSION: No acute fracture or dislocation right coxofemoral joints/right hip. Electronically signed by: Mayank Irwin MD 02/13/2024 03:48 PM EST RP Hip CT 02/13/24 14:54 IMPRESSION: No acute fracture or dislocation, left coxofemoral joint/hip. Electronically signed by: Mayank Irwin MD 02/13/2024 03:44 PM EST RP Cervical Spine MRI 02/14/24 14:41 IMPRESSION: Within the limitations of the study, 1. No definitive evidence of fracture involving the C3 syndesmophyte. 2. Multilevel cervical spondylosis without significant spinal canal stenosis or cord compression. Mild multilevel neural foraminal narrowing as described above. Electronically signed by: Villa Tello MD 02/14/2024 03:51 PM EST RP Chest X-Ray 02/21/24 07:23 IMPRESSION: Unremarkable examination. Electronically signed by: Josse Gregorio MD 02/21/2024 05:53 PM EST RP Medications Medications Current Medications Acetaminophen (Acetaminophen 325 Mg Tablet) 650 mg PO Q6H PRN PRN Reason: Headache/Pain Mild Scale (1-3) Last Admin: 02/14/24 01:05 Dose: 650 mg Al Hydroxide/Mg Hydroxide (Magnesium Hydrox/Alum Hydrox 30 Ml Oral.Susp) 30 ml PO Q6H PRN PRN Reason: Heartburn/Nausea Clonidine HCl (Clonidine Hcl 0.1 Mg Tablet) 0.05 mg PO BID [facility]; Protocol Last Admin: 03/05/24 20:22 Dose: 0.05 mg Clozapine 200 mg/ Clozapine 50 (mg) 250 mg PO DAILY@1930 [facility] Last Admin: 03/05/24 20:22 Dose: 250 mg Docusate Sodium (Docusate Sodium 100 Mg Capsule) 100 mg PO BID [facility] Last Admin: 03/05/24 20:23 Dose: 100 mg Glucose (Glucose Gel 15 Gm Gel..Gram.) 15 gm PO Q15M PRN; Protocol PRN Reason: per Hypoglycemia Standing Ord. Hydroxyzine HCl (Hydroxyzine Hcl 25 Mg Tablet) 25 mg PO Q6H PRN PRN Reason: Anxiety Last Admin: 02/20/24 20:05 Dose: 25 mg Dextrose (D10) 250 mls @ 750 mls/hr IV Q15M PRN; Protocol PRN Reason: per Hypoglycemia Standing Ord. Insulin Human Lispro (Insulin Lispro 100 Unit/Ml 3 Ml Vial) 0 unit SUBCUT DAILY [facility]; Protocol Last Admin: 03/05/24 07:33 Dose: Not Given Magnesium Hydroxide (Milk Of Magnesia 30 Ml Oral.Susp) 30 ml PO DAILY PRN PRN Reason: Constipation Last Admin: 01/11/24 12:48 Dose: 30 ml Naloxone HCl (Naloxone Hcl 0.4 Mg/Ml Vial) 0.04 mg IVPUSH Q5M PRN PRN Reason: Excessive sedation or RR < 8 Omeprazole (Omeprazole 20 Mg Capsule.Dr) 20 mg PO DAILY@0630 [facility] Last Admin: 03/05/24 06:38 Dose: 20 mg Polyethylene Glycol (Polyethylene Glycol 3350 17 Gm Powd.Pack) 17 gm PO DAILY [facility] Last Admin: 03/05/24 11:51 Dose: 17 gm Senna (Sennosides 8.6 Mg Tablet) 17.2 mg PO BEDTIME [facility] Last Admin: 03/05/24 20:23 Dose: 17.2 mg Sertraline HCl (Sertraline Hcl 100 Mg Tablet) 100 mg PO DAILY [facility] Last Admin: 03/05/24 08:43 Dose: 100 mg Tamsulosin HCl (Tamsulosin Hcl 0.4 Mg Capsule) 0.4 mg PO BEDTIME [facility] Last Admin: 03/05/24 20:23 Dose: 0.4 mg Trazodone HCl (Trazodone Hcl 50 Mg Tablet) 50 mg PO BEDTIME MRX1 PRN PRN Reason: Insomnia Last Admin: 02/24/24 21:18 Dose: 50 mg Allergies Allergies Allergy/AdvReac Type Severity Reaction Status Date / Time No Known Allergies [NKA] Allergy Unknown NONE Verified 03/01/24 06:35 Assessment & Plan Assessment & Plan (1) Schizophrenia, catatonic: Status: Acute Code(s): F20.2 - Catatonic schizophrenia Plan Patient is a 58-year-old male with a PMH significant for HTN, [id number] type 2 diabetes, BPH, schizoaffective disorder, and depression with catatonia admitted to [facility] with hospitalist consult ECT risk stratification. ECT risk stratification Patient with history of multiple prior ECT without apparent complications No apparent acute medical complaints, vitals and EKG reassuring RCRI class 1 risk, 0 points; no additional cardiac workup indicated Based on patient's history, exam, and EKG, there are no apparent contraindications for the planned procedure Plan 1. The patient remains catatonic, we will schedule for ECT next Monday. 2. Hospitalist already cleared him up after his last fall. 3. Continue one-to-one observation. 4. Continue with Clozaril and benzodiazepines. 5. ECT to be scheduled, we will need to contact his father for consent for the treatment. Finally we got consent and he had his 1st ECT on February 20 6. Ativan was increased up to 2 mg p.o. t.i.d. on February 19 02/24/24 cont plan of care cont ect some improvement noted 02/25/2024 Patient improving continue lorazepam continue ECT encourage out of bed 02/26/24 cont ect lorazepam encourage oob 02/27/24 Improved fx tolerating ect 03/02 remains doing much better; still blunted but good mood and more social, in [place] Time Spent With Patient Time: Total time managing care of this patient today ____ minutes.
[2024-03-06] VITALS (10 sets, daily range): BP systolic 111–162; BP diastolic 59–85; PULSE 65–94; RESP 16–18; TEMP 36–36.7; O2SAT 95–100
[2024-03-06 07:06] LABS: Glucose, Whole Blood 118 mg/dL (60-115)
--- NOTE | 2024-03-06 08:15 | MHC.SHP ---
Pre-Procedural Eval Section A - 24 Hr Update-Section A only Date of Service: 03/06/24 The patient is an INPATIENT: Yes Changes since office visit: Yes Patient answered all questions; No Cold of Flu in the past 2 weeks, No New Medical Problems and No Changes in Medication The patient has been examined within 24 hours of the surgical procedure. The History & Physical has been completed within 30 days and I have reviewed it.: Yes Section B - Complete if H&P > 30 days Chief Complaint: catatonia Allergies: Allergies Allergy/AdvReac Type Severity Reaction Status Date / Time No Known Allergies [NKA] Allergy Unknown NONE Verified 03/01/24 06:35 Plan I have reviewed the history and physical and performed a pertinent physical examination on my patient. No changes have occurred unless specified. Time Spent With Patient Time: Total time managing care of this patient today ____ minutes.
[2024-03-06] MEDS: polyethylene glycoL 3350 17 GM POWD.PACK PO (09:53)
[2024-03-06] MEDS: Docusate Sodium 100 MG CAPSULE PO ×2 (09:53→20:08)
[2024-03-06] MEDS: cloNIDine HCL 0.1 MG TABLET 0.05 MG PO ×2 (09:54→20:05)
[2024-03-06] MEDS: Sertraline HCL 100 MG TABLET PO (09:56)
[2024-03-06] MEDS: Omeprazole 20 MG CAPSULE.DR PO (09:58)
--- NOTE | 2024-03-06 11:28 | HO.ANESPROP2 ---
[facility] Active Problems Active Problems: All Active Problems Schizophrenia, catatonic (Acute) Schizoaffective disorder (Acute) Fall (Acute) Pre-op evaluation (Acute) Catatonia (Acute) Nocturnal hypoxia (Acute) Sleep apnea (Acute) Schizoaffective disorder, depressive type (Acute) Benign prostate hyperplasia (Acute) Essential hypertension (Acute) Right hip pain (Acute) Essential (primary) hypertension (Acute) Diabetes mellitus (Acute) Past Medical History Medical History Schizophrenia, catatonic Mild sleep apnea Nocturnal hypoxia Routine medical exam Joint inflammation of right hand and wrist Status post fall Adult general medical exam Screening for colon cancer Screening for prostate cancer Cough BPH (benign prostatic hyperplasia) Essential (primary) hypertension Diabetes mellitus Functional capacity: independent ambulation Family History Family History Mother Cancer Father Kidney agenesis Family history of problems with anesthesia: No Surgical History Surgical History History of colonoscopy (~06/15/21) History of tooth extraction History of root canal procedure History of Problems with Anesthesia: No Social History Social History Household Members: None Housing: Apartment Are you a primary child care attendant to a significant other at home: No Do you presently have visiting nurse or other home services: No Unable to assess alcohol history related to: Unable to respond Alcohol intake: former Comment: 1:1 Patient Tobacco Use Status: Never used Tobacco e-Cigarette/Vaping Use: Never Used Second Hand Smoke Exposure: No service: No Current occupational status: employed Sexual orientation: Straight/Heterosexual Cognitive needs: No Hearing needs: No Vision needs: No Meds Allergies Allergy/AdvReac Type Severity Reaction Status Date / Time No Known Allergies [NKA] Allergy Unknown NONE Verified 03/01/24 06:35 Active Medications: Current Medications Acetaminophen (Acetaminophen 325 Mg Tablet) 650 mg PO Q6H PRN PRN Reason: Headache/Pain Mild Scale (1-3) Last Admin: 02/14/24 01:05 Dose: 650 mg Al Hydroxide/Mg Hydroxide (Magnesium Hydrox/Alum Hydrox 30 Ml Oral.Susp) 30 ml PO Q6H PRN PRN Reason: Heartburn/Nausea Clonidine HCl (Clonidine Hcl 0.1 Mg Tablet) 0.05 mg PO BID [facility]; Protocol Last Admin: 03/06/24 09:54 Dose: 0.05 mg Clozapine 200 mg/ Clozapine 50 (mg) 250 mg PO DAILY@1930 [facility] Last Admin: 03/05/24 20:22 Dose: 250 mg Docusate Sodium (Docusate Sodium 100 Mg Capsule) 100 mg PO BID [facility] Last Admin: 03/06/24 09:53 Dose: 100 mg Glucose (Glucose Gel 15 Gm Gel..Gram.) 15 gm PO Q15M PRN; Protocol PRN Reason: per Hypoglycemia Standing Ord. Hydroxyzine HCl (Hydroxyzine Hcl 25 Mg Tablet) 25 mg PO Q6H PRN PRN Reason: Anxiety Last Admin: 02/20/24 20:05 Dose: 25 mg Insulin Human Lispro (Insulin Lispro 100 Unit/Ml 3 Ml Vial) 0 unit SUBCUT DAILY [facility]; Protocol Last Admin: 03/06/24 09:56 Dose: Not Given Magnesium Hydroxide (Milk Of Magnesia 30 Ml Oral.Susp) 30 ml PO DAILY PRN PRN Reason: Constipation Last Admin: 01/11/24 12:48 Dose: 30 ml Naloxone HCl (Naloxone Hcl 0.4 Mg/Ml Vial) 0.04 mg IVPUSH Q5M PRN PRN Reason: Excessive sedation or RR < 8 Omeprazole (Omeprazole 20 Mg Capsule.Dr) 20 mg PO DAILY@0630 [facility] Last Admin: 03/06/24 09:58 Dose: 20 mg Polyethylene Glycol (Polyethylene Glycol 3350 17 Gm Powd.Pack) 17 gm PO DAILY [facility] Last Admin: 03/06/24 09:53 Dose: 17 gm Senna (Sennosides 8.6 Mg Tablet) 17.2 mg PO BEDTIME [facility] Last Admin: 03/05/24 20:23 Dose: 17.2 mg Sertraline HCl (Sertraline Hcl 100 Mg Tablet) 100 mg PO DAILY [facility] Last Admin: 03/06/24 09:56 Dose: 100 mg Tamsulosin HCl (Tamsulosin Hcl 0.4 Mg Capsule) 0.4 mg PO BEDTIME [facility] Last Admin: 03/05/24 20:23 Dose: 0.4 mg Trazodone HCl (Trazodone Hcl 50 Mg Tablet) 50 mg PO BEDTIME MRX1 PRN PRN Reason: Insomnia Last Admin: 02/24/24 21:18 Dose: 50 mg Home Medications ?Medication ?Instructions ?Recorded ?Confirmed ?Last Taken ?Type aripiprazole 5 mg tablet 5 mg PO BEDTIME 01/05/24 01/05/24 01/03/24 History lithium carbonate 300 mg capsule 300 mg PO BID 01/05/24 01/05/24 01/05/24 History omeprazole 20 mg capsule,delayed 20 mg PO DAILY@0630 01/05/24 01/05/24 01/05/24 History release polyethylene glycol 3350 17 17 g PO DAILY 01/05/24 01/05/24 01/05/24 History gram/dose oral powder (Miralax) sennosides 8.6 mg tablet (senna) 17.2 mg PO BEDTIME 01/05/24 01/05/24 01/05/24 History tamsulosin 0.4 mg capsule 0.4 mg PO BEDTIME 01/05/24 01/05/24 01/03/24 History Exam Height,Weight and Vital Signs: Height 5 ft 10 in Weight 98.067 kg Last Vital Signs Temp 96.8 F 03/06/24 09:51 Pulse 90 03/06/24 09:51 Resp 18 03/06/24 09:51 BP 139/85 03/06/24 09:51 Pulse Ox 95 03/06/24 09:51 O2 Del Method Room Air 03/06/24 09:51 O2 Flow Rate 2 03/06/24 08:55 Pertinent Lab Results Pertinent Lab Results: Laboratory Tests 01/05/24 01/05/24 01/05/24 11:49 15:51 18:36 WBC 8.9 RBC 4.82 Hgb 13.9 L Hct 42.6 MCV 88.4 MCH 28.8 MCHC 32.6 RDW 13.2 Plt Count 169 MPV 11.1 Immature Gran % (Auto) 0.6 H Neut % (Auto) 79.4 H Lymph % (Auto) 13.1 L Foster % (Auto) 6.8 Eos % (Auto) 0.0 Baso % (Auto) 0.1 Lymph # (Auto) 1.2 Foster # (Auto) 0.6 Eos # (Auto) 0.0 Baso # (Auto) 0.0 Abs Immat Gran (auto) 0.05 H Absolute Neuts (auto) 7.1 Absolute Nucleated RBC 0.000 Nucleated RBC % (auto) 0.0 Sodium 141 Potassium 4.6 Chloride 106 Carbon Dioxide 27 Anion Gap 13 BUN 23 H Creatinine 1.42 H Estim Creat Clear Calc 64.4 Estimated GFR 51 POC Glucose 90 Random Glucose 82 Fasting Glucose Estimat Average Glucose Hemoglobin A1c % Calcium 9.2 Total Bilirubin 0.6 AST 13 ALT 9 Alkaline Phosphatase 64 Ammonia Total Protein 7.0 Albumin 4.1 TSH Salicylates < 5.0 L Acetaminophen < 3 Clozapine Norclozapine [place] 1.19 Ethyl Alcohol < 10 COVID-19 ([facility]) Negative COVID-19 Clin Com See Note 01/07/24 01/12/24 01/14/24 07:36 08:25 08:35 WBC RBC Hgb Hct MCV MCH MCHC RDW Plt Count MPV Immature Gran % (Auto) Neut % (Auto) Lymph % (Auto) Foster % (Auto) Eos % (Auto) Baso % (Auto) Lymph # (Auto) Foster # (Auto) Eos # (Auto) Baso # (Auto) Abs Immat Gran (auto) Absolute Neuts (auto) 4.9 Absolute Nucleated RBC Nucleated RBC % (auto) Sodium 142 Potassium 4.4 Chloride 106 Carbon Dioxide 25 Anion Gap 15 BUN 23 H Creatinine 1.39 1.55 H Estim Creat Clear Calc 65.6 58.8 Estimated GFR 52 46 POC Glucose Random Glucose 132 H Fasting Glucose Estimat Average Glucose Hemoglobin A1c % Calcium 9.2 Total Bilirubin AST ALT Alkaline Phosphatase Ammonia Total Protein Albumin TSH Salicylates Acetaminophen Clozapine Norclozapine [place] 0.90 Ethyl Alcohol COVID-19 ([facility]) COVID-19 [employer] 01/16/24 01/17/24 01/19/24 10:15 08:14 08:50 WBC RBC Hgb Hct MCV MCH MCHC RDW Plt Count MPV Immature Gran % (Auto) Neut % (Auto) Lymph % (Auto) Foster % (Auto) Eos % (Auto) Baso % (Auto) Lymph # (Auto) Foster # (Auto) Eos # (Auto) Baso # (Auto) Abs Immat Gran (auto) Absolute Neuts (auto) 5.3 Absolute Nucleated RBC Nucleated RBC % (auto) Sodium 144 Potassium 4.3 Chloride 109 H Carbon Dioxide 29 Anion Gap 10 L BUN 24 H Creatinine 1.37 Estim Creat Clear Calc 66.5 Estimated GFR 53 POC Glucose 88 Random Glucose Fasting Glucose 90 Estimat Average Glucose 103 Hemoglobin A1c % 5.2 Calcium 9.4 Total Bilirubin 0.4 AST 15 ALT 12 Alkaline Phosphatase 66 Ammonia Total Protein 6.6 Albumin 3.9 TSH 0.78 Salicylates Acetaminophen Clozapine 353 Norclozapine 196 [place] 0.65 0.89 Ethyl Alcohol COVID-19 ([facility]) COVID-19 [employer] 01/21/24 01/21/24 01/22/24 07:36 12:20 16:09 WBC RBC Hgb Hct MCV MCH MCHC RDW Plt Count MPV Immature Gran % (Auto) Neut % (Auto) Lymph % (Auto) Foster % (Auto) Eos % (Auto) Baso % (Auto) Lymph # (Auto) Foster # (Auto) Eos # (Auto) Baso # (Auto) Abs Immat Gran (auto) Absolute Neuts (auto) Absolute Nucleated RBC Nucleated RBC % (auto) Sodium 141 141 Potassium 3.8 3.8 Chloride 106 107 Carbon Dioxide 26 28 Anion Gap 13 10 L BUN 31 H 29 H Creatinine 1.64 H 1.76 H 1.67 H Estim Creat Clear Calc 55.4 51.6 54.4 Estimated GFR 43 40 42 POC Glucose Random Glucose 173 H 96 Fasting Glucose Estimat Average Glucose Hemoglobin A1c % Calcium 9.3 9.0 Total Bilirubin 0.5 0.4 AST 15 18 ALT 15 10 Alkaline Phosphatase 65 55 Ammonia Total Protein 6.7 6.3 L Albumin 4.0 3.8 TSH Salicylates Acetaminophen Clozapine Norclozapine [place] 1.20 Ethyl Alcohol COVID-19 ([facility]) COVID-19 [employer] 01/23/24 01/24/24 01/24/24 08:05 07:46 16:29 WBC RBC Hgb Hct MCV MCH MCHC RDW Plt Count MPV Immature Gran % (Auto) Neut % (Auto) Lymph % (Auto) Foster % (Auto) Eos % (Auto) Baso % (Auto) Lymph # (Auto) Foster # (Auto) Eos # (Auto) Baso # (Auto) Abs Immat Gran (auto) Absolute Neuts (auto) Absolute Nucleated RBC Nucleated RBC % (auto) Sodium 144 144 Potassium 4.0 4.1 Chloride 107 110 H Carbon Dioxide 29 28 Anion Gap 12 10 L BUN 25 H 22 H Creatinine 1.29 1.37 Estim Creat Clear Calc 70.4 66.3 Estimated GFR 57 53 POC Glucose 106 Random Glucose 91 101 Fasting Glucose Estimat Average Glucose Hemoglobin A1c % Calcium 8.9 8.9 Total Bilirubin AST ALT Alkaline Phosphatase Ammonia Total Protein Albumin TSH Salicylates Acetaminophen Clozapine Norclozapine [place] Ethyl Alcohol COVID-19 ([facility]) COVID-19 [employer] 01/24/24 01/25/24 01/25/24 19:54 06:36 12:42 WBC RBC Hgb Hct MCV MCH MCHC RDW Plt Count MPV Immature Gran % (Auto) Neut % (Auto) Lymph % (Auto) Foster % (Auto) Eos % (Auto) Baso % (Auto) Lymph # (Auto) Foster # (Auto) Eos # (Auto) Baso # (Auto) Abs Immat Gran (auto) Absolute Neuts (auto) Absolute Nucleated RBC Nucleated RBC % (auto) Sodium Potassium Chloride Carbon Dioxide Anion Gap BUN Creatinine Estim Creat Clear Calc Estimated GFR POC Glucose 105 110 159 H Random Glucose Fasting Glucose Estimat Average Glucose Hemoglobin A1c % Calcium Total Bilirubin AST ALT Alkaline Phosphatase Ammonia Total Protein Albumin TSH Salicylates Acetaminophen Clozapine Norclozapine [place] Ethyl Alcohol COVID-19 ([facility]) COVID-19 [employer] 01/25/24 01/25/24 01/26/24 16:48 21:13 06:33 WBC RBC Hgb Hct MCV MCH MCHC RDW Plt Count MPV Immature Gran % (Auto) Neut % (Auto) Lymph % (Auto) Foster % (Auto) Eos % (Auto) Baso % (Auto) Lymph # (Auto) Foster # (Auto) Eos # (Auto) Baso # (Auto) Abs Immat Gran (auto) Absolute Neuts (auto) Absolute Nucleated RBC Nucleated RBC % (auto) Sodium Potassium Chloride Carbon Dioxide Anion Gap BUN Creatinine Estim Creat Clear Calc Estimated GFR POC Glucose 84 118 H 101 Random Glucose Fasting Glucose Estimat Average Glucose Hemoglobin A1c % Calcium Total Bilirubin AST ALT Alkaline Phosphatase Ammonia Total Protein Albumin TSH Salicylates Acetaminophen Clozapine Norclozapine [place] Ethyl Alcohol COVID-19 ([facility]) COVID-19 [employer] 01/26/24 01/26/24 01/26/24 07:56 11:32 16:33 WBC RBC Hgb Hct MCV MCH MCHC RDW Plt Count MPV Immature Gran % (Auto) Neut % (Auto) Lymph % (Auto) Foster % (Auto) Eos % (Auto) Baso % (Auto) Lymph # (Auto) Foster # (Auto) Eos # (Auto) Baso # (Auto) Abs Immat Gran (auto) Absolute Neuts (auto) 3.4 Absolute Nucleated RBC Nucleated RBC % (auto) Sodium Potassium Chloride Carbon Dioxide Anion Gap BUN Creatinine Estim Creat Clear Calc Estimated GFR POC Glucose 97 83 Random Glucose Fasting Glucose Estimat Average Glucose Hemoglobin A1c % Calcium Total Bilirubin AST ALT Alkaline Phosphatase Ammonia Total Protein Albumin TSH Salicylates Acetaminophen Clozapine Norclozapine [place] Ethyl Alcohol COVID-19 ([facility]) COVID-19 [employer] 01/26/24 01/27/24 01/27/24 21:18 06:50 11:13 WBC RBC Hgb Hct MCV MCH MCHC RDW Plt Count MPV Immature Gran % (Auto) Neut % (Auto) Lymph % (Auto) Foster % (Auto) Eos % (Auto) Baso % (Auto) Lymph # (Auto) Foster # (Auto) Eos # (Auto) Baso # (Auto) Abs Immat Gran (auto) Absolute Neuts (auto) Absolute Nucleated RBC Nucleated RBC % (auto) Sodium Potassium Chloride Carbon Dioxide Anion Gap BUN Creatinine Estim Creat Clear Calc Estimated GFR POC Glucose 101 108 99 Random Glucose Fasting Glucose Estimat Average Glucose Hemoglobin A1c % Calcium Total Bilirubin AST ALT Alkaline Phosphatase Ammonia Total Protein Albumin TSH Salicylates Acetaminophen Clozapine Norclozapine [place] Ethyl Alcohol COVID-19 ([facility]) [employer] 01/27/24 01/27/24 01/28/24 16:36 21:31 06:25 WBC RBC Hgb Hct MCV MCH MCHC RDW Plt Count MPV Immature Gran % (Auto) Neut % (Auto) Lymph % (Auto) Foster % (Auto) Eos % (Auto) Baso % (Auto) Lymph # (Auto) Foster # (Auto) Eos # (Auto) Baso # (Auto) Abs Immat Gran (auto) Absolute Neuts (auto) Absolute Nucleated RBC Nucleated RBC % (auto) Sodium Potassium Chloride Carbon Dioxide Anion Gap BUN Creatinine Estim Creat Clear Calc Estimated GFR POC Glucose 80 99 111 Random Glucose Fasting Glucose Estimat Average Glucose Hemoglobin A1c % Calcium Total Bilirubin AST ALT Alkaline Phosphatase Ammonia Total Protein Albumin TSH Salicylates Acetaminophen Clozapine Norclozapine [place] Ethyl Alcohol COVID-19 ([facility]) [employer] 01/28/24 01/28/24 01/28/24 07:21 11:32 19:53 WBC RBC Hgb Hct MCV MCH MCHC RDW Plt Count MPV Immature Gran % (Auto) Neut % (Auto) Lymph % (Auto) Foster % (Auto) Eos % (Auto) Baso % (Auto) Lymph # (Auto) Foster # (Auto) Eos # (Auto) Baso # (Auto) Abs Immat Gran (auto) Absolute Neuts (auto) Absolute Nucleated RBC Nucleated RBC % (auto) Sodium Potassium Chloride Carbon Dioxide Anion Gap BUN Creatinine 1.48 H Estim Creat Clear Calc 61.8 Estimated GFR 48 POC Glucose 93 123 H Random Glucose Fasting Glucose Estimat Average Glucose Hemoglobin A1c % Calcium Total Bilirubin AST ALT Alkaline Phosphatase Ammonia Total Protein Albumin TSH Salicylates Acetaminophen Clozapine Norclozapine [place] Ethyl Alcohol COVID-19 ([facility]) COVID-19 [employer] 01/29/24 01/29/24 01/30/24 06:32 19:56 06:34 WBC RBC Hgb Hct MCV MCH MCHC RDW Plt Count MPV Immature Gran % (Auto) Neut % (Auto) Lymph % (Auto) Foster % (Auto) Eos % (Auto) Baso % (Auto) Lymph # (Auto) Foster # (Auto) Eos # (Auto) Baso # (Auto) Abs Immat Gran (auto) Absolute Neuts (auto) Absolute Nucleated RBC Nucleated RBC % (auto) Sodium Potassium Chloride Carbon Dioxide Anion Gap BUN Creatinine Estim Creat Clear Calc Estimated GFR POC Glucose 109 148 H 109 Random Glucose Fasting Glucose Estimat Average Glucose Hemoglobin A1c % Calcium Total Bilirubin AST ALT Alkaline Phosphatase Ammonia Total Protein Albumin TSH Salicylates Acetaminophen Clozapine Norclozapine [place] Ethyl Alcohol COVID-19 ([facility]) COVID-19 [employer] 01/31/24 02/01/24 02/02/24 06:35 06:09 06:19 WBC RBC Hgb Hct MCV MCH MCHC RDW Plt Count MPV Immature Gran % (Auto) Neut % (Auto) Lymph % (Auto) Foster % (Auto) Eos % (Auto) Baso % (Auto) Lymph # (Auto) Foster # (Auto) Eos # (Auto) Baso # (Auto) Abs Immat Gran (auto) Absolute Neuts (auto) Absolute Nucleated RBC Nucleated RBC % (auto) Sodium Potassium Chloride Carbon Dioxide Anion Gap BUN Creatinine Estim Creat Clear Calc Estimated GFR POC Glucose 98 101 102 Random Glucose Fasting Glucose Estimat Average Glucose Hemoglobin A1c % Calcium Total Bilirubin AST ALT Alkaline Phosphatase Ammonia Total Protein Albumin TSH Salicylates Acetaminophen Clozapine Norclozapine [place] Ethyl Alcohol COVID-19 ([facility]) COVID-19 [employer] 02/02/24 02/03/24 02/04/24 08:25 06:37 06:46 WBC RBC Hgb Hct MCV MCH MCHC RDW Plt Count MPV Immature Gran % (Auto) Neut % (Auto) Lymph % (Auto) Foster % (Auto) Eos % (Auto) Baso % (Auto) Lymph # (Auto) Foster # (Auto) Eos # (Auto) Baso # (Auto) Abs Immat Gran (auto) Absolute Neuts (auto) 3.3 Absolute Nucleated RBC Nucleated RBC % (auto) Sodium Potassium Chloride Carbon Dioxide Anion Gap BUN Creatinine Estim Creat Clear Calc Estimated GFR POC Glucose 95 98 Random Glucose Fasting Glucose Estimat Average Glucose Hemoglobin A1c % Calcium Total Bilirubin AST ALT Alkaline Phosphatase Ammonia Total Protein Albumin TSH Salicylates Acetaminophen Clozapine Norclozapine [place] Ethyl Alcohol COVID-19 ([facility]) [employer] 02/04/24 02/05/24 02/06/24 07:17 06:37 06:46 WBC RBC Hgb Hct MCV MCH MCHC RDW Plt Count MPV Immature Gran % (Auto) Neut % (Auto) Lymph % (Auto) Foster % (Auto) Eos % (Auto) Baso % (Auto) Lymph # (Auto) Foster # (Auto) Eos # (Auto) Baso # (Auto) Abs Immat Gran (auto) Absolute Neuts (auto) Absolute Nucleated RBC Nucleated RBC % (auto) Sodium Potassium Chloride Carbon Dioxide Anion Gap BUN Creatinine 1.32 Estim Creat Clear Calc 69.3 Estimated GFR 55 POC Glucose 94 103 Random Glucose Fasting Glucose Estimat Average Glucose Hemoglobin A1c % Calcium Total Bilirubin AST ALT Alkaline Phosphatase Ammonia Total Protein Albumin TSH Salicylates Acetaminophen Clozapine Norclozapine [place] Ethyl Alcohol COVID-19 ([facility]) [employer] 02/07/24 02/08/24 02/09/24 06:57 06:32 06:40 WBC RBC Hgb Hct MCV MCH MCHC RDW Plt Count MPV Immature Gran % (Auto) Neut % (Auto) Lymph % (Auto) Foster % (Auto) Eos % (Auto) Baso % (Auto) Lymph # (Auto) Foster # (Auto) Eos # (Auto) Baso # (Auto) Abs Immat Gran (auto) Absolute Neuts (auto) Absolute Nucleated RBC Nucleated RBC % (auto) Sodium Potassium Chloride Carbon Dioxide Anion Gap BUN Creatinine Estim Creat Clear Calc Estimated GFR POC Glucose 118 H 117 H 121 H Random Glucose Fasting Glucose Estimat Average Glucose Hemoglobin A1c % Calcium Total Bilirubin AST ALT Alkaline Phosphatase Ammonia Total Protein Albumin TSH Salicylates Acetaminophen Clozapine Norclozapine [place] Ethyl Alcohol COVID-19 ([facility]) COVID-19 [employer] 02/09/24 02/10/24 02/11/24 07:57 06:31 06:50 WBC RBC Hgb Hct MCV MCH MCHC RDW Plt Count MPV Immature Gran % (Auto) Neut % (Auto) Lymph % (Auto) Foster % (Auto) Eos % (Auto) Baso % (Auto) Lymph # (Auto) Foster # (Auto) Eos # (Auto) Baso # (Auto) Abs Immat Gran (auto) Absolute Neuts (auto) 3.9 Absolute Nucleated RBC Nucleated RBC % (auto) Sodium Potassium Chloride Carbon Dioxide Anion Gap BUN Creatinine Estim Creat Clear Calc Estimated GFR POC Glucose 110 114 Random Glucose Fasting Glucose Estimat Average Glucose Hemoglobin A1c % Calcium Total Bilirubin AST ALT Alkaline Phosphatase Ammonia Total Protein Albumin TSH Salicylates Acetaminophen Clozapine Norclozapine [place] Ethyl Alcohol COVID-19 ([facility]) [employer] 02/11/24 02/12/24 02/12/24 10:16 06:36 10:14 WBC RBC Hgb Hct MCV MCH MCHC RDW Plt Count MPV Immature Gran % (Auto) Neut % (Auto) Lymph % (Auto) Foster % (Auto) Eos % (Auto) Baso % (Auto) Lymph # (Auto) Foster # (Auto) Eos # (Auto) Baso # (Auto) Abs Immat Gran (auto) Absolute Neuts (auto) Absolute Nucleated RBC Nucleated RBC % (auto) Sodium Potassium Chloride Carbon Dioxide Anion Gap BUN Creatinine 1.21 Estim Creat Clear Calc 75.8 Estimated GFR > 60 POC Glucose 130 H 102 Random Glucose Fasting Glucose Estimat Average Glucose Hemoglobin A1c % Calcium Total Bilirubin AST ALT Alkaline Phosphatase Ammonia Total Protein Albumin TSH Salicylates Acetaminophen Clozapine Norclozapine [place] Ethyl Alcohol COVID-19 ([facility]) COVID-19 [employer] 02/13/24 02/13/24 02/13/24 07:10 14:35 19:44 WBC RBC Hgb Hct MCV MCH MCHC RDW Plt Count MPV Immature Gran % (Auto) Neut % (Auto) Lymph % (Auto) Foster % (Auto) Eos % (Auto) Baso % (Auto) Lymph # (Auto) Foster # (Auto) Eos # (Auto) Baso # (Auto) Abs Immat Gran (auto) Absolute Neuts (auto) Absolute Nucleated RBC Nucleated RBC % (auto) Sodium Potassium Chloride Carbon Dioxide Anion Gap BUN Creatinine Estim Creat Clear Calc Estimated GFR POC Glucose 115 89 105 Random Glucose Fasting Glucose Estimat Average Glucose Hemoglobin A1c % Calcium Total Bilirubin AST ALT Alkaline Phosphatase Ammonia Total Protein Albumin TSH Salicylates Acetaminophen Clozapine Norclozapine [place] Ethyl Alcohol COVID-19 ([facility]) [employer] 02/14/24 02/14/24 02/15/24 06:30 14:36 06:36 WBC 6.9 RBC 4.34 L Hgb 12.5 L Hct 37.5 L MCV 86.4 MCH 28.8 MCHC 33.3 RDW 12.7 Plt Count 130 L MPV 11.0 Immature Gran % (Auto) 0.3 Neut % (Auto) 71.4 Lymph % (Auto) 19.9 L Foster % (Auto) 8.3 Eos % (Auto) 0.0 Baso % (Auto) 0.1 Lymph # (Auto) 1.4 Foster # (Auto) 0.6 Eos # (Auto) 0.0 Baso # (Auto) 0.0 Abs Immat Gran (auto) 0.02 Absolute Neuts (auto) 4.9 Absolute Nucleated RBC 0.000 Nucleated RBC % (auto) 0.0 Sodium 144 Potassium 3.8 Chloride 110 H Carbon Dioxide 23 Anion Gap 15 BUN 21 H Creatinine 1.30 Estim Creat Clear Calc 70.5 Estimated GFR 56 POC Glucose 111 99 Random Glucose Fasting Glucose 99 Estimat Average Glucose Hemoglobin A1c % Calcium 9.1 Total Bilirubin 0.5 AST 26 ALT 13 Alkaline Phosphatase 63 Ammonia 39 Total Protein 6.4 L Albumin 3.8 TSH 0.92 Salicylates Acetaminophen Clozapine Norclozapine [place] Ethyl Alcohol COVID-19 ([facility]) COVID-19 [employer] 02/16/24 02/16/24 02/16/24 06:34 07:03 10:11 WBC RBC Hgb Hct MCV MCH MCHC RDW Plt Count MPV Immature Gran % (Auto) Neut % (Auto) Lymph % (Auto) Foster % (Auto) Eos % (Auto) Baso % (Auto) Lymph # (Auto) Foster # (Auto) Eos # (Auto) Baso # (Auto) Abs Immat Gran (auto) Absolute Neuts (auto) 4.5 Absolute Nucleated RBC Nucleated RBC % (auto) Sodium Potassium Chloride Carbon Dioxide Anion Gap BUN Creatinine Estim Creat Clear Calc Estimated GFR POC Glucose 67 78 Random Glucose Fasting Glucose Estimat Average Glucose Hemoglobin A1c % Calcium Total Bilirubin AST ALT Alkaline Phosphatase Ammonia Total Protein Albumin TSH Salicylates Acetaminophen Clozapine Norclozapine [place] Ethyl Alcohol COVID-19 ([facility]) COVID-19 [employer] 02/17/24 02/18/24 02/18/24 06:24 06:45 08:19 WBC RBC Hgb Hct MCV MCH MCHC RDW Plt Count MPV Immature Gran % (Auto) Neut % (Auto) Lymph % (Auto) Foster % (Auto) Eos % (Auto) Baso % (Auto) Lymph # (Auto) Foster # (Auto) Eos # (Auto) Baso # (Auto) Abs Immat Gran (auto) Absolute Neuts (auto) Absolute Nucleated RBC Nucleated RBC % (auto) Sodium Potassium Chloride Carbon Dioxide Anion Gap BUN Creatinine 1.48 H Estim Creat Clear Calc 61.2 Estimated GFR 48 POC Glucose 88 114 Random Glucose Fasting Glucose Estimat Average Glucose Hemoglobin A1c % Calcium Total Bilirubin AST ALT Alkaline Phosphatase Ammonia Total Protein Albumin TSH Salicylates Acetaminophen Clozapine Norclozapine [place] Ethyl Alcohol COVID-19 ([facility]) COVID-19 [employer] 02/19/24 02/20/24 02/21/24 06:40 06:33 06:48 WBC RBC Hgb Hct MCV MCH MCHC RDW Plt Count MPV Immature Gran % (Auto) Neut % (Auto) Lymph % (Auto) Foster % (Auto) Eos % (Auto) Baso % (Auto) Lymph # (Auto) Foster # (Auto) Eos # (Auto) Baso # (Auto) Abs Immat Gran (auto) Absolute Neuts (auto) Absolute Nucleated RBC Nucleated RBC % (auto) Sodium Potassium Chloride Carbon Dioxide Anion Gap BUN Creatinine Estim Creat Clear Calc Estimated GFR POC Glucose 111 117 H 134 H Random Glucose Fasting Glucose Estimat Average Glucose Hemoglobin A1c % Calcium Total Bilirubin AST ALT Alkaline Phosphatase Ammonia Total Protein Albumin TSH Salicylates Acetaminophen Clozapine Norclozapine [place] Ethyl Alcohol COVID-19 ([facility]) COVID-19 Clin Com 02/22/24 02/23/24 02/24/24 06:22 08:01 06:52 WBC RBC Hgb Hct MCV MCH MCHC RDW Plt Count MPV Immature Gran % (Auto) Neut % (Auto) Lymph % (Auto) Foster % (Auto) Eos % (Auto) Baso % (Auto) Lymph # (Auto) Foster # (Auto) Eos # (Auto) Baso # (Auto) Abs Immat Gran (auto) Absolute Neuts (auto) 3.9 Absolute Nucleated RBC Nucleated RBC % (auto) Sodium Potassium Chloride Carbon Dioxide Anion Gap BUN Creatinine Estim Creat Clear Calc Estimated GFR POC Glucose 121 H 123 H Random Glucose Fasting Glucose Estimat Average Glucose Hemoglobin A1c % Calcium Total Bilirubin AST ALT Alkaline Phosphatase Ammonia Total Protein Albumin TSH Salicylates Acetaminophen Clozapine Norclozapine [place] Ethyl Alcohol COVID-19 ([facility]) COVID-19 Clin Com 02/25/24 02/25/24 02/26/24 07:00 08:12 06:23 WBC RBC Hgb Hct MCV MCH MCHC RDW Plt Count MPV Immature Gran % (Auto) Neut % (Auto) Lymph % (Auto) Foster % (Auto) Eos % (Auto) Baso % (Auto) Lymph # (Auto) Foster # (Auto) Eos # (Auto) Baso # (Auto) Abs Immat Gran (auto) Absolute Neuts (auto) Absolute Nucleated RBC Nucleated RBC % (auto) Sodium Potassium Chloride Carbon Dioxide Anion Gap BUN Creatinine 1.32 Estim Creat Clear Calc 67.7 Estimated GFR 55 POC Glucose 124 H 106 Random Glucose Fasting Glucose Estimat Average Glucose Hemoglobin A1c % Calcium Total Bilirubin AST ALT Alkaline Phosphatase Ammonia Total Protein Albumin TSH Salicylates Acetaminophen Clozapine Norclozapine [place] Ethyl Alcohol COVID-19 ([facility]) COVID-19 Clin Com 02/26/24 02/27/24 02/28/24 13:44 06:31 06:57 WBC RBC Hgb Hct MCV MCH MCHC RDW Plt Count MPV Immature Gran % (Auto) Neut % (Auto) Lymph % (Auto) Foster % (Auto) Eos % (Auto) Baso % (Auto) Lymph # (Auto) Foster # (Auto) Eos # (Auto) Baso # (Auto) Abs Immat Gran (auto) Absolute Neuts (auto) Absolute Nucleated RBC Nucleated RBC % (auto) Sodium Potassium Chloride Carbon Dioxide Anion Gap BUN Creatinine Estim Creat Clear Calc Estimated GFR POC Glucose 86 111 111 Random Glucose Fasting Glucose Estimat Average Glucose Hemoglobin A1c % Calcium Total Bilirubin AST ALT Alkaline Phosphatase Ammonia Total Protein Albumin TSH Salicylates Acetaminophen Clozapine Norclozapine [place] Ethyl Alcohol COVID-19 ([facility]) COVID-19 [employer] Com 02/29/24 03/01/24 03/01/24 06:41 06:26 14:02 WBC RBC Hgb Hct MCV MCH MCHC RDW Plt Count MPV Immature Gran % (Auto) Neut % (Auto) Lymph % (Auto) Foster % (Auto) Eos % (Auto) Baso % (Auto) Lymph # (Auto) Foster # (Auto) Eos # (Auto) Baso # (Auto) Abs Immat Gran (auto) Absolute Neuts (auto) 3.7 Absolute Nucleated RBC Nucleated RBC % (auto) Sodium Potassium Chloride Carbon Dioxide Anion Gap BUN Creatinine Estim Creat Clear Calc Estimated GFR POC Glucose 122 H 113 Random Glucose Fasting Glucose Estimat Average Glucose Hemoglobin A1c % Calcium Total Bilirubin AST ALT Alkaline Phosphatase Ammonia Total Protein Albumin TSH Salicylates Acetaminophen Clozapine Norclozapine [place] Ethyl Alcohol COVID-19 ([facility]) COVID-19 [employer] 03/01/24 03/02/24 03/03/24 14:02 07:21 06:27 WBC RBC Hgb Hct MCV MCH MCHC RDW Plt Count MPV Immature Gran % (Auto) Neut % (Auto) Lymph % (Auto) Foster % (Auto) Eos % (Auto) Baso % (Auto) Lymph # (Auto) Foster # (Auto) Eos # (Auto) Baso # (Auto) Abs Immat Gran (auto) Absolute Neuts (auto) Cancelled Absolute Nucleated RBC Nucleated RBC % (auto) Sodium Potassium Chloride Carbon Dioxide Anion Gap BUN Creatinine Estim Creat Clear Calc Estimated GFR POC Glucose 151 H 133 H Random Glucose Fasting Glucose Estimat Average Glucose Hemoglobin A1c % Calcium Total Bilirubin AST ALT Alkaline Phosphatase Ammonia Total Protein Albumin TSH Salicylates Acetaminophen Clozapine Norclozapine [place] Ethyl Alcohol COVID-19 ([facility]) COVID-19 [employer] [facility] 03/03/24 03/04/24 03/04/24 19:46 05:45 06:37 WBC RBC Hgb Hct MCV MCH MCHC RDW Plt Count MPV Immature Gran % (Auto) Neut % (Auto) Lymph % (Auto) Foster % (Auto) Eos % (Auto) Baso % (Auto) Lymph # (Auto) Foster # (Auto) Eos # (Auto) Baso # (Auto) Abs Immat Gran (auto) Absolute Neuts (auto) Absolute Nucleated RBC Nucleated RBC % (auto) Sodium Potassium Chloride Carbon Dioxide Anion Gap BUN Creatinine Estim Creat Clear Calc Estimated GFR POC Glucose 80 108 99 Random Glucose Fasting Glucose Estimat Average Glucose Hemoglobin A1c % Calcium Total Bilirubin AST ALT Alkaline Phosphatase Ammonia Total Protein Albumin TSH Salicylates Acetaminophen Clozapine Norclozapine [place] Ethyl Alcohol COVID-19 ([facility]) COVID-19 [employer] [facility] 03/05/24 03/06/24 06:39 07:04 WBC RBC Hgb Hct MCV MCH MCHC RDW Plt Count MPV Immature Gran % (Auto) Neut % (Auto) Lymph % (Auto) Foster % (Auto) Eos % (Auto) Baso % (Auto) Lymph # (Auto) Foster # (Auto) Eos # (Auto) Baso # (Auto) Abs Immat Gran (auto) Absolute Neuts (auto) Absolute Nucleated RBC Nucleated RBC % (auto) Sodium Potassium Chloride Carbon Dioxide Anion Gap BUN Creatinine Estim Creat Clear Calc Estimated GFR POC Glucose 105 118 H Random Glucose Fasting Glucose Estimat Average Glucose Hemoglobin A1c % Calcium Total Bilirubin AST ALT Alkaline Phosphatase Ammonia Total Protein Albumin TSH Salicylates Acetaminophen Clozapine Norclozapine [place] Ethyl Alcohol COVID-19 ([facility]) COVID-19 [employer] Com Assessment and Plan Final Anesthetic Review Family History of Problems with Anesthesia: No History of Problems with Anesthesia: No
--- NOTE | 2024-03-06 11:29 | HO.ANESPROP2 ---
[facility] Active Problems Active Problems: All Active Problems Schizophrenia, catatonic (Acute) Schizoaffective disorder (Acute) Fall (Acute) Pre-op evaluation (Acute) Catatonia (Acute) Nocturnal hypoxia (Acute) Sleep apnea (Acute) Schizoaffective disorder, depressive type (Acute) Benign prostate hyperplasia (Acute) Essential hypertension (Acute) Right hip pain (Acute) Essential (primary) hypertension (Acute) Diabetes mellitus (Acute) Past Medical History Medical History Schizophrenia, catatonic Mild sleep apnea Nocturnal hypoxia Routine medical exam Joint inflammation of right hand and wrist Status post fall Adult general medical exam Screening for colon cancer Screening for prostate cancer Cough BPH (benign prostatic hyperplasia) Essential (primary) hypertension Diabetes mellitus Functional capacity: independent ambulation Family History Family History Mother Cancer Father Kidney agenesis Family history of problems with anesthesia: No Surgical History Surgical History History of colonoscopy (~06/15/21) History of tooth extraction History of root canal procedure History of Problems with Anesthesia: No Social History Social History Household Members: None Housing: Apartment Are you a primary body care manager to a significant other at home: No Do you presently have visiting nurse or other home services: No Unable to assess alcohol history related to: Unable to respond Alcohol intake: former Comment: 1:1 Patient Tobacco Use Status: Never used Tobacco e-Cigarette/Vaping Use: Never Used Second Hand Smoke Exposure: No service: No Current occupational status: employed Sexual orientation: Straight/Heterosexual Cognitive needs: No Hearing needs: No Vision needs: No Meds Allergies Allergy/AdvReac Type Severity Reaction Status Date / Time No Known Allergies [NKA] Allergy Unknown NONE Verified 03/01/24 06:35 Active Medications: Current Medications Acetaminophen (Acetaminophen 325 Mg Tablet) 650 mg PO Q6H PRN PRN Reason: Headache/Pain Mild Scale (1-3) Last Admin: 02/14/24 01:05 Dose: 650 mg Al Hydroxide/Mg Hydroxide (Magnesium Hydrox/Alum Hydrox 30 Ml Oral.Susp) 30 ml PO Q6H PRN PRN Reason: Heartburn/Nausea Clonidine HCl (Clonidine Hcl 0.1 Mg Tablet) 0.05 mg PO BID [facility]; Protocol Last Admin: 03/06/24 09:54 Dose: 0.05 mg Clozapine 200 mg/ Clozapine 50 (mg) 250 mg PO DAILY@1930 [facility] Last Admin: 03/05/24 20:22 Dose: 250 mg Docusate Sodium (Docusate Sodium 100 Mg Capsule) 100 mg PO BID [facility] Last Admin: 03/06/24 09:53 Dose: 100 mg Glucose (Glucose Gel 15 Gm Gel..Gram.) 15 gm PO Q15M PRN; Protocol PRN Reason: per Hypoglycemia Standing Ord. Hydroxyzine HCl (Hydroxyzine Hcl 25 Mg Tablet) 25 mg PO Q6H PRN PRN Reason: Anxiety Last Admin: 02/20/24 20:05 Dose: 25 mg Insulin Human Lispro (Insulin Lispro 100 Unit/Ml 3 Ml Vial) 0 unit SUBCUT DAILY [facility]; Protocol Last Admin: 03/06/24 09:56 Dose: Not Given Magnesium Hydroxide (Milk Of Magnesia 30 Ml Oral.Susp) 30 ml PO DAILY PRN PRN Reason: Constipation Last Admin: 01/11/24 12:48 Dose: 30 ml Naloxone HCl (Naloxone Hcl 0.4 Mg/Ml Vial) 0.04 mg IVPUSH Q5M PRN PRN Reason: Excessive sedation or RR < 8 Omeprazole (Omeprazole 20 Mg Capsule.Dr) 20 mg PO DAILY@0630 [facility] Last Admin: 03/06/24 09:58 Dose: 20 mg Polyethylene Glycol (Polyethylene Glycol 3350 17 Gm Powd.Pack) 17 gm PO DAILY [facility] Last Admin: 03/06/24 09:53 Dose: 17 gm Senna (Sennosides 8.6 Mg Tablet) 17.2 mg PO BEDTIME [facility] Last Admin: 03/05/24 20:23 Dose: 17.2 mg Sertraline HCl (Sertraline Hcl 100 Mg Tablet) 100 mg PO DAILY [facility] Last Admin: 03/06/24 09:56 Dose: 100 mg Tamsulosin HCl (Tamsulosin Hcl 0.4 Mg Capsule) 0.4 mg PO BEDTIME [facility] Last Admin: 03/05/24 20:23 Dose: 0.4 mg Trazodone HCl (Trazodone Hcl 50 Mg Tablet) 50 mg PO BEDTIME MRX1 PRN PRN Reason: Insomnia Last Admin: 02/24/24 21:18 Dose: 50 mg Home Medications ?Medication ?Instructions ?Recorded ?Confirmed ?Last Taken ?Type aripiprazole 5 mg tablet 5 mg PO BEDTIME 01/05/24 01/05/24 01/03/24 History lithium carbonate 300 mg capsule 300 mg PO BID 01/05/24 01/05/24 01/05/24 History omeprazole 20 mg capsule,delayed 20 mg PO DAILY@0630 01/05/24 01/05/24 01/05/24 History release polyethylene glycol 3350 17 17 g PO DAILY 01/05/24 01/05/24 01/05/24 History gram/dose oral powder (Miralax) sennosides 8.6 mg tablet (senna) 17.2 mg PO BEDTIME 01/05/24 01/05/24 01/05/24 History tamsulosin 0.4 mg capsule 0.4 mg PO BEDTIME 01/05/24 01/05/24 01/03/24 History Exam Height,Weight and Vital Signs: Height 5 ft 10 in Weight 98.067 kg Last Vital Signs Temp 96.8 F 03/06/24 09:51 Pulse 90 03/06/24 09:51 Resp 18 03/06/24 09:51 BP 139/85 03/06/24 09:51 Pulse Ox 95 03/06/24 09:51 O2 Del Method Room Air 03/06/24 09:51 O2 Flow Rate 2 03/06/24 08:55 Pertinent Lab Results Pertinent Lab Results: Laboratory Tests 01/05/24 01/05/24 01/05/24 11:49 15:51 18:36 WBC 8.9 RBC 4.82 Hgb 13.9 L Hct 42.6 MCV 88.4 MCH 28.8 MCHC 32.6 RDW 13.2 Plt Count 169 MPV 11.1 Immature Gran % (Auto) 0.6 H Neut % (Auto) 79.4 H Lymph % (Auto) 13.1 L [place] % (Auto) 6.8 Eos % (Auto) 0.0 Baso % (Auto) 0.1 Lymph # (Auto) 1.2 [place] # (Auto) 0.6 Eos # (Auto) 0.0 Baso # (Auto) 0.0 Abs Immat Gran (auto) 0.05 H Absolute Neuts (auto) 7.1 Absolute Nucleated RBC 0.000 Nucleated RBC % (auto) 0.0 Sodium 141 Potassium 4.6 Chloride 106 Carbon Dioxide 27 Anion Gap 13 BUN 23 H Creatinine 1.42 H Estim Creat Clear Calc 64.4 Estimated GFR 51 POC Glucose 90 Random Glucose 82 Fasting Glucose Estimat Average Glucose Hemoglobin A1c % Calcium 9.2 Total Bilirubin 0.6 AST 13 ALT 9 Alkaline Phosphatase 64 Ammonia Total Protein 7.0 Albumin 4.1 TSH Salicylates < 5.0 L Acetaminophen < 3 Clozapine Norclozapine [employer] 1.19 Ethyl Alcohol < 10 COVID-19 ([facility]) Negative COVID-19 Clin Com See Note 01/07/24 01/12/24 01/14/24 07:36 08:25 08:35 WBC RBC Hgb Hct MCV MCH MCHC RDW Plt Count MPV Immature Gran % (Auto) Neut % (Auto) Lymph % (Auto) [place] % (Auto) Eos % (Auto) Baso % (Auto) Lymph # (Auto) [place] # (Auto) Eos # (Auto) Baso # (Auto) Abs Immat Gran (auto) Absolute Neuts (auto) 4.9 Absolute Nucleated RBC Nucleated RBC % (auto) Sodium 142 Potassium 4.4 Chloride 106 Carbon Dioxide 25 Anion Gap 15 BUN 23 H Creatinine 1.39 1.55 H Estim Creat Clear Calc 65.6 58.8 Estimated GFR 52 46 POC Glucose Random Glucose 132 H Fasting Glucose Estimat Average Glucose Hemoglobin A1c % Calcium 9.2 Total Bilirubin AST ALT Alkaline Phosphatase Ammonia Total Protein Albumin TSH Salicylates Acetaminophen Clozapine Norclozapine [place] 0.90 Ethyl Alcohol COVID-19 ([facility]) COVID-19 [employer] 01/16/24 01/17/24 01/19/24 10:15 08:14 08:50 WBC RBC Hgb Hct MCV MCH MCHC RDW Plt Count MPV Immature Gran % (Auto) Neut % (Auto) Lymph % (Auto) [place] % (Auto) Eos % (Auto) Baso % (Auto) Lymph # (Auto) [place] # (Auto) Eos # (Auto) Baso # (Auto) Abs Immat Gran (auto) Absolute Neuts (auto) 5.3 Absolute Nucleated RBC Nucleated RBC % (auto) Sodium 144 Potassium 4.3 Chloride 109 H Carbon Dioxide 29 Anion Gap 10 L BUN 24 H Creatinine 1.37 Estim Creat Clear Calc 66.5 Estimated GFR 53 POC Glucose 88 Random Glucose Fasting Glucose 90 Estimat Average Glucose 103 Hemoglobin A1c % 5.2 Calcium 9.4 Total Bilirubin 0.4 AST 15 ALT 12 Alkaline Phosphatase 66 Ammonia Total Protein 6.6 Albumin 3.9 TSH 0.78 Salicylates Acetaminophen Clozapine 353 Norclozapine 196 [place] 0.65 0.89 Ethyl Alcohol COVID-19 ([facility]) COVID-19 [employer] 01/21/24 01/21/24 01/22/24 07:36 12:20 16:09 WBC RBC Hgb Hct MCV MCH MCHC RDW Plt Count MPV Immature Gran % (Auto) Neut % (Auto) Lymph % (Auto) [place] % (Auto) Eos % (Auto) Baso % (Auto) Lymph # (Auto) [place] # (Auto) Eos # (Auto) Baso # (Auto) Abs Immat Gran (auto) Absolute Neuts (auto) Absolute Nucleated RBC Nucleated RBC % (auto) Sodium 141 141 Potassium 3.8 3.8 Chloride 106 107 Carbon Dioxide 26 28 Anion Gap 13 10 L BUN 31 H 29 H Creatinine 1.64 H 1.76 H 1.67 H Estim Creat Clear Calc 55.4 51.6 54.4 Estimated GFR 43 40 42 POC Glucose Random Glucose 173 H 96 Fasting Glucose Estimat Average Glucose Hemoglobin A1c % Calcium 9.3 9.0 Total Bilirubin 0.5 0.4 AST 15 18 ALT 15 10 Alkaline Phosphatase 65 55 Ammonia Total Protein 6.7 6.3 L Albumin 4.0 3.8 TSH Salicylates Acetaminophen Clozapine Norclozapine [employer] 1.20 Ethyl Alcohol COVID-19 ([facility]) COVID-19 [employer] 01/23/24 01/24/24 01/24/24 08:05 07:46 16:29 WBC RBC Hgb Hct MCV MCH MCHC RDW Plt Count MPV Immature Gran % (Auto) Neut % (Auto) Lymph % (Auto) [place] % (Auto) Eos % (Auto) Baso % (Auto) Lymph # (Auto) [place] # (Auto) Eos # (Auto) Baso # (Auto) Abs Immat Gran (auto) Absolute Neuts (auto) Absolute Nucleated RBC Nucleated RBC % (auto) Sodium 144 144 Potassium 4.0 4.1 Chloride 107 110 H Carbon Dioxide 29 28 Anion Gap 12 10 L BUN 25 H 22 H Creatinine 1.29 1.37 Estim Creat Clear Calc 70.4 66.3 Estimated GFR 57 53 POC Glucose 106 Random Glucose 91 101 Fasting Glucose Estimat Average Glucose Hemoglobin A1c % Calcium 8.9 8.9 Total Bilirubin AST ALT Alkaline Phosphatase Ammonia Total Protein Albumin TSH Salicylates Acetaminophen Clozapine Norclozapine [employer] Ethyl Alcohol COVID-19 ([facility]) COVID-19 [employer] 01/24/24 01/25/24 01/25/24 19:54 06:36 12:42 WBC RBC Hgb Hct MCV MCH MCHC RDW Plt Count MPV Immature Gran % (Auto) Neut % (Auto) Lymph % (Auto) [place] % (Auto) Eos % (Auto) Baso % (Auto) Lymph # (Auto) [place] # (Auto) Eos # (Auto) Baso # (Auto) Abs Immat Gran (auto) Absolute Neuts (auto) Absolute Nucleated RBC Nucleated RBC % (auto) Sodium Potassium Chloride Carbon Dioxide Anion Gap BUN Creatinine Estim Creat Clear Calc Estimated GFR POC Glucose 105 110 159 H Random Glucose Fasting Glucose Estimat Average Glucose Hemoglobin A1c % Calcium Total Bilirubin AST ALT Alkaline Phosphatase Ammonia Total Protein Albumin TSH Salicylates Acetaminophen Clozapine Norclozapine [employer] Ethyl Alcohol COVID-19 ([facility]) COVID-19 [employer] 01/25/24 01/25/24 01/26/24 16:48 21:13 06:33 WBC RBC Hgb Hct MCV MCH MCHC RDW Plt Count MPV Immature Gran % (Auto) Neut % (Auto) Lymph % (Auto) [place] % (Auto) Eos % (Auto) Baso % (Auto) Lymph # (Auto) [place] # (Auto) Eos # (Auto) Baso # (Auto) Abs Immat Gran (auto) Absolute Neuts (auto) Absolute Nucleated RBC Nucleated RBC % (auto) Sodium Potassium Chloride Carbon Dioxide Anion Gap BUN Creatinine Estim Creat Clear Calc Estimated GFR POC Glucose 84 118 H 101 Random Glucose Fasting Glucose Estimat Average Glucose Hemoglobin A1c % Calcium Total Bilirubin AST ALT Alkaline Phosphatase Ammonia Total Protein Albumin TSH Salicylates Acetaminophen Clozapine Norclozapine [employer] Ethyl Alcohol COVID-19 ([facility]) COVID-19 [employer] 01/26/24 01/26/24 01/26/24 07:56 11:32 16:33 WBC RBC Hgb Hct MCV MCH MCHC RDW Plt Count MPV Immature Gran % (Auto) Neut % (Auto) Lymph % (Auto) [place] % (Auto) Eos % (Auto) Baso % (Auto) Lymph # (Auto) [place] # (Auto) Eos # (Auto) Baso # (Auto) Abs Immat Gran (auto) Absolute Neuts (auto) 3.4 Absolute Nucleated RBC Nucleated RBC % (auto) Sodium Potassium Chloride Carbon Dioxide Anion Gap BUN Creatinine Estim Creat Clear Calc Estimated GFR POC Glucose 97 83 Random Glucose Fasting Glucose Estimat Average Glucose Hemoglobin A1c % Calcium Total Bilirubin AST ALT Alkaline Phosphatase Ammonia Total Protein Albumin TSH Salicylates Acetaminophen Clozapine Norclozapine [employer] Ethyl Alcohol COVID-19 ([facility]) COVID-19 [employer] 01/26/24 01/27/24 01/27/24 21:18 06:50 11:13 WBC RBC Hgb Hct MCV MCH MCHC RDW Plt Count MPV Immature Gran % (Auto) Neut % (Auto) Lymph % (Auto) [place] % (Auto) Eos % (Auto) Baso % (Auto) Lymph # (Auto) [place] # (Auto) Eos # (Auto) Baso # (Auto) Abs Immat Gran (auto) Absolute Neuts (auto) Absolute Nucleated RBC Nucleated RBC % (auto) Sodium Potassium Chloride Carbon Dioxide Anion Gap BUN Creatinine Estim Creat Clear Calc Estimated GFR POC Glucose 101 108 99 Random Glucose Fasting Glucose Estimat Average Glucose Hemoglobin A1c % Calcium Total Bilirubin AST ALT Alkaline Phosphatase Ammonia Total Protein Albumin TSH Salicylates Acetaminophen Clozapine Norclozapine [employer] Ethyl Alcohol COVID-19 ([facility]) [employer] 01/27/24 01/27/24 01/28/24 16:36 21:31 06:25 WBC RBC Hgb Hct MCV MCH MCHC RDW Plt Count MPV Immature Gran % (Auto) Neut % (Auto) Lymph % (Auto) [place] % (Auto) Eos % (Auto) Baso % (Auto) Lymph # (Auto) [place] # (Auto) Eos # (Auto) Baso # (Auto) Abs Immat Gran (auto) Absolute Neuts (auto) Absolute Nucleated RBC Nucleated RBC % (auto) Sodium Potassium Chloride Carbon Dioxide Anion Gap BUN Creatinine Estim Creat Clear Calc Estimated GFR POC Glucose 80 99 111 Random Glucose Fasting Glucose Estimat Average Glucose Hemoglobin A1c % Calcium Total Bilirubin AST ALT Alkaline Phosphatase Ammonia Total Protein Albumin TSH Salicylates Acetaminophen Clozapine Norclozapine [employer] Ethyl Alcohol COVID-19 ([facility]) [employer] 01/28/24 01/28/24 01/28/24 07:21 11:32 19:53 WBC RBC Hgb Hct MCV MCH MCHC RDW Plt Count MPV Immature Gran % (Auto) Neut % (Auto) Lymph % (Auto) [place] % (Auto) Eos % (Auto) Baso % (Auto) Lymph # (Auto) [place] # (Auto) Eos # (Auto) Baso # (Auto) Abs Immat Gran (auto) Absolute Neuts (auto) Absolute Nucleated RBC Nucleated RBC % (auto) Sodium Potassium Chloride Carbon Dioxide Anion Gap BUN Creatinine 1.48 H Estim Creat Clear Calc 61.8 Estimated GFR 48 POC Glucose 93 123 H Random Glucose Fasting Glucose Estimat Average Glucose Hemoglobin A1c % Calcium Total Bilirubin AST ALT Alkaline Phosphatase Ammonia Total Protein Albumin TSH Salicylates Acetaminophen Clozapine Norclozapine [place] Ethyl Alcohol COVID-19 ([facility]) COVID-19 [employer] 01/29/24 01/29/24 01/30/24 06:32 19:56 06:34 WBC RBC Hgb Hct MCV MCH MCHC RDW Plt Count MPV Immature Gran % (Auto) Neut % (Auto) Lymph % (Auto) [place] % (Auto) Eos % (Auto) Baso % (Auto) Lymph # (Auto) [place] # (Auto) Eos # (Auto) Baso # (Auto) Abs Immat Gran (auto) Absolute Neuts (auto) Absolute Nucleated RBC Nucleated RBC % (auto) Sodium Potassium Chloride Carbon Dioxide Anion Gap BUN Creatinine Estim Creat Clear Calc Estimated GFR POC Glucose 109 148 H 109 Random Glucose Fasting Glucose Estimat Average Glucose Hemoglobin A1c % Calcium Total Bilirubin AST ALT Alkaline Phosphatase Ammonia Total Protein Albumin TSH Salicylates Acetaminophen Clozapine Norclozapine [employer] Ethyl Alcohol COVID-19 ([facility]) COVID-19 [employer] 01/31/24 02/01/24 02/02/24 06:35 06:09 06:19 WBC RBC Hgb Hct MCV MCH MCHC RDW Plt Count MPV Immature Gran % (Auto) Neut % (Auto) Lymph % (Auto) [place] % (Auto) Eos % (Auto) Baso % (Auto) Lymph # (Auto) [place] # (Auto) Eos # (Auto) Baso # (Auto) Abs Immat Gran (auto) Absolute Neuts (auto) Absolute Nucleated RBC Nucleated RBC % (auto) Sodium Potassium Chloride Carbon Dioxide Anion Gap BUN Creatinine Estim Creat Clear Calc Estimated GFR POC Glucose 98 101 102 Random Glucose Fasting Glucose Estimat Average Glucose Hemoglobin A1c % Calcium Total Bilirubin AST ALT Alkaline Phosphatase Ammonia Total Protein Albumin TSH Salicylates Acetaminophen Clozapine Norclozapine [place] Ethyl Alcohol COVID-19 ([facility]) COVID-19 [employer] 02/02/24 02/03/24 02/04/24 08:25 06:37 06:46 WBC RBC Hgb Hct MCV MCH MCHC RDW Plt Count MPV Immature Gran % (Auto) Neut % (Auto) Lymph % (Auto) [place] % (Auto) Eos % (Auto) Baso % (Auto) Lymph # (Auto) [place] # (Auto) Eos # (Auto) Baso # (Auto) Abs Immat Gran (auto) Absolute Neuts (auto) 3.3 Absolute Nucleated RBC Nucleated RBC % (auto) Sodium Potassium Chloride Carbon Dioxide Anion Gap BUN Creatinine Estim Creat Clear Calc Estimated GFR POC Glucose 95 98 Random Glucose Fasting Glucose Estimat Average Glucose Hemoglobin A1c % Calcium Total Bilirubin AST ALT Alkaline Phosphatase Ammonia Total Protein Albumin TSH Salicylates Acetaminophen Clozapine Norclozapine [employer] Ethyl Alcohol COVID-19 ([facility]) [employer] 02/04/24 02/05/24 02/06/24 07:17 06:37 06:46 WBC RBC Hgb Hct MCV MCH MCHC RDW Plt Count MPV Immature Gran % (Auto) Neut % (Auto) Lymph % (Auto) [place] % (Auto) Eos % (Auto) Baso % (Auto) Lymph # (Auto) [place] # (Auto) Eos # (Auto) Baso # (Auto) Abs Immat Gran (auto) Absolute Neuts (auto) Absolute Nucleated RBC Nucleated RBC % (auto) Sodium Potassium Chloride Carbon Dioxide Anion Gap BUN Creatinine 1.32 Estim Creat Clear Calc 69.3 Estimated GFR 55 POC Glucose 94 103 Random Glucose Fasting Glucose Estimat Average Glucose Hemoglobin A1c % Calcium Total Bilirubin AST ALT Alkaline Phosphatase Ammonia Total Protein Albumin TSH Salicylates Acetaminophen Clozapine Norclozapine [place] Ethyl Alcohol COVID-19 ([facility]) [employer] 02/07/24 02/08/24 02/09/24 06:57 06:32 06:40 WBC RBC Hgb Hct MCV MCH MCHC RDW Plt Count MPV Immature Gran % (Auto) Neut % (Auto) Lymph % (Auto) [place] % (Auto) Eos % (Auto) Baso % (Auto) Lymph # (Auto) [place] # (Auto) Eos # (Auto) Baso # (Auto) Abs Immat Gran (auto) Absolute Neuts (auto) Absolute Nucleated RBC Nucleated RBC % (auto) Sodium Potassium Chloride Carbon Dioxide Anion Gap BUN Creatinine Estim Creat Clear Calc Estimated GFR POC Glucose 118 H 117 H 121 H Random Glucose Fasting Glucose Estimat Average Glucose Hemoglobin A1c % Calcium Total Bilirubin AST ALT Alkaline Phosphatase Ammonia Total Protein Albumin TSH Salicylates Acetaminophen Clozapine Norclozapine [employer] Ethyl Alcohol COVID-19 ([facility]) COVID-19 [employer] 02/09/24 02/10/24 02/11/24 07:57 06:31 06:50 WBC RBC Hgb Hct MCV MCH MCHC RDW Plt Count MPV Immature Gran % (Auto) Neut % (Auto) Lymph % (Auto) [place] % (Auto) Eos % (Auto) Baso % (Auto) Lymph # (Auto) [place] # (Auto) Eos # (Auto) Baso # (Auto) Abs Immat Gran (auto) Absolute Neuts (auto) 3.9 Absolute Nucleated RBC Nucleated RBC % (auto) Sodium Potassium Chloride Carbon Dioxide Anion Gap BUN Creatinine Estim Creat Clear Calc Estimated GFR POC Glucose 110 114 Random Glucose Fasting Glucose Estimat Average Glucose Hemoglobin A1c % Calcium Total Bilirubin AST ALT Alkaline Phosphatase Ammonia Total Protein Albumin TSH Salicylates Acetaminophen Clozapine Norclozapine [employer] Ethyl Alcohol COVID-19 ([facility]) [employer] 02/11/24 02/12/24 02/12/24 10:16 06:36 10:14 WBC RBC Hgb Hct MCV MCH MCHC RDW Plt Count MPV Immature Gran % (Auto) Neut % (Auto) Lymph % (Auto) [place] % (Auto) Eos % (Auto) Baso % (Auto) Lymph # (Auto) [place] # (Auto) Eos # (Auto) Baso # (Auto) Abs Immat Gran (auto) Absolute Neuts (auto) Absolute Nucleated RBC Nucleated RBC % (auto) Sodium Potassium Chloride Carbon Dioxide Anion Gap BUN Creatinine 1.21 Estim Creat Clear Calc 75.8 Estimated GFR > 60 POC Glucose 130 H 102 Random Glucose Fasting Glucose Estimat Average Glucose Hemoglobin A1c % Calcium Total Bilirubin AST ALT Alkaline Phosphatase Ammonia Total Protein Albumin TSH Salicylates Acetaminophen Clozapine Norclozapine [employer] Ethyl Alcohol COVID-19 ([facility]) COVID-19 [employer] 02/13/24 02/13/24 02/13/24 07:10 14:35 19:44 WBC RBC Hgb Hct MCV MCH MCHC RDW Plt Count MPV Immature Gran % (Auto) Neut % (Auto) Lymph % (Auto) [place] % (Auto) Eos % (Auto) Baso % (Auto) Lymph # (Auto) [place] # (Auto) Eos # (Auto) Baso # (Auto) Abs Immat Gran (auto) Absolute Neuts (auto) Absolute Nucleated RBC Nucleated RBC % (auto) Sodium Potassium Chloride Carbon Dioxide Anion Gap BUN Creatinine Estim Creat Clear Calc Estimated GFR POC Glucose 115 89 105 Random Glucose Fasting Glucose Estimat Average Glucose Hemoglobin A1c % Calcium Total Bilirubin AST ALT Alkaline Phosphatase Ammonia Total Protein Albumin TSH Salicylates Acetaminophen Clozapine Norclozapine [employer] Ethyl Alcohol COVID-19 ([facility]) [employer] 02/14/24 02/14/24 02/15/24 06:30 14:36 06:36 WBC 6.9 RBC 4.34 L Hgb 12.5 L Hct 37.5 L MCV 86.4 MCH 28.8 MCHC 33.3 RDW 12.7 Plt Count 130 L MPV 11.0 Immature Gran % (Auto) 0.3 Neut % (Auto) 71.4 Lymph % (Auto) 19.9 L [place] % (Auto) 8.3 Eos % (Auto) 0.0 Baso % (Auto) 0.1 Lymph # (Auto) 1.4 [place] # (Auto) 0.6 Eos # (Auto) 0.0 Baso # (Auto) 0.0 Abs Immat Gran (auto) 0.02 Absolute Neuts (auto) 4.9 Absolute Nucleated RBC 0.000 Nucleated RBC % (auto) 0.0 Sodium 144 Potassium 3.8 Chloride 110 H Carbon Dioxide 23 Anion Gap 15 BUN 21 H Creatinine 1.30 Estim Creat Clear Calc 70.5 Estimated GFR 56 POC Glucose 111 99 Random Glucose Fasting Glucose 99 Estimat Average Glucose Hemoglobin A1c % Calcium 9.1 Total Bilirubin 0.5 AST 26 ALT 13 Alkaline Phosphatase 63 Ammonia 39 Total Protein 6.4 L Albumin 3.8 TSH 0.92 Salicylates Acetaminophen Clozapine Norclozapine [employer] Ethyl Alcohol COVID-19 ([facility]) COVID-19 [employer] 02/16/24 02/16/24 02/16/24 06:34 07:03 10:11 WBC RBC Hgb Hct MCV MCH MCHC RDW Plt Count MPV Immature Gran % (Auto) Neut % (Auto) Lymph % (Auto) [place] % (Auto) Eos % (Auto) Baso % (Auto) Lymph # (Auto) [place] # (Auto) Eos # (Auto) Baso # (Auto) Abs Immat Gran (auto) Absolute Neuts (auto) 4.5 Absolute Nucleated RBC Nucleated RBC % (auto) Sodium Potassium Chloride Carbon Dioxide Anion Gap BUN Creatinine Estim Creat Clear Calc Estimated GFR POC Glucose 67 78 Random Glucose Fasting Glucose Estimat Average Glucose Hemoglobin A1c % Calcium Total Bilirubin AST ALT Alkaline Phosphatase Ammonia Total Protein Albumin TSH Salicylates Acetaminophen Clozapine Norclozapine [employer] Ethyl Alcohol COVID-19 ([facility]) COVID-19 [employer] 02/17/24 02/18/24 02/18/24 06:24 06:45 08:19 WBC RBC Hgb Hct MCV MCH MCHC RDW Plt Count MPV Immature Gran % (Auto) Neut % (Auto) Lymph % (Auto) [place] % (Auto) Eos % (Auto) Baso % (Auto) Lymph # (Auto) [place] # (Auto) Eos # (Auto) Baso # (Auto) Abs Immat Gran (auto) Absolute Neuts (auto) Absolute Nucleated RBC Nucleated RBC % (auto) Sodium Potassium Chloride Carbon Dioxide Anion Gap BUN Creatinine 1.48 H Estim Creat Clear Calc 61.2 Estimated GFR 48 POC Glucose 88 114 Random Glucose Fasting Glucose Estimat Average Glucose Hemoglobin A1c % Calcium Total Bilirubin AST ALT Alkaline Phosphatase Ammonia Total Protein Albumin TSH Salicylates Acetaminophen Clozapine Norclozapine [employer] Ethyl Alcohol COVID-19 ([facility]) COVID-19 [employer] 02/19/24 02/20/24 02/21/24 06:40 06:33 06:48 WBC RBC Hgb Hct MCV MCH MCHC RDW Plt Count MPV Immature Gran % (Auto) Neut % (Auto) Lymph % (Auto) [place] % (Auto) Eos % (Auto) Baso % (Auto) Lymph # (Auto) [place] # (Auto) Eos # (Auto) Baso # (Auto) Abs Immat Gran (auto) Absolute Neuts (auto) Absolute Nucleated RBC Nucleated RBC % (auto) Sodium Potassium Chloride Carbon Dioxide Anion Gap BUN Creatinine Estim Creat Clear Calc Estimated GFR POC Glucose 111 117 H 134 H Random Glucose Fasting Glucose Estimat Average Glucose Hemoglobin A1c % Calcium Total Bilirubin AST ALT Alkaline Phosphatase Ammonia Total Protein Albumin TSH Salicylates Acetaminophen Clozapine Norclozapine [employer] Ethyl Alcohol COVID-19 ([facility]) COVID-19 Clin Com 02/22/24 02/23/24 02/24/24 06:22 08:01 06:52 WBC RBC Hgb Hct MCV MCH MCHC RDW Plt Count MPV Immature Gran % (Auto) Neut % (Auto) Lymph % (Auto) [place] % (Auto) Eos % (Auto) Baso % (Auto) Lymph # (Auto) [place] # (Auto) Eos # (Auto) Baso # (Auto) Abs Immat Gran (auto) Absolute Neuts (auto) 3.9 Absolute Nucleated RBC Nucleated RBC % (auto) Sodium Potassium Chloride Carbon Dioxide Anion Gap BUN Creatinine Estim Creat Clear Calc Estimated GFR POC Glucose 121 H 123 H Random Glucose Fasting Glucose Estimat Average Glucose Hemoglobin A1c % Calcium Total Bilirubin AST ALT Alkaline Phosphatase Ammonia Total Protein Albumin TSH Salicylates Acetaminophen Clozapine Norclozapine [employer] Ethyl Alcohol COVID-19 ([facility]) COVID-19 Clin Com 02/25/24 02/25/24 02/26/24 07:00 08:12 06:23 WBC RBC Hgb Hct MCV MCH MCHC RDW Plt Count MPV Immature Gran % (Auto) Neut % (Auto) Lymph % (Auto) [place] % (Auto) Eos % (Auto) Baso % (Auto) Lymph # (Auto) [place] # (Auto) Eos # (Auto) Baso # (Auto) Abs Immat Gran (auto) Absolute Neuts (auto) Absolute Nucleated RBC Nucleated RBC % (auto) Sodium Potassium Chloride Carbon Dioxide Anion Gap BUN Creatinine 1.32 Estim Creat Clear Calc 67.7 Estimated GFR 55 POC Glucose 124 H 106 Random Glucose Fasting Glucose Estimat Average Glucose Hemoglobin A1c % Calcium Total Bilirubin AST ALT Alkaline Phosphatase Ammonia Total Protein Albumin TSH Salicylates Acetaminophen Clozapine Norclozapine [place] Ethyl Alcohol COVID-19 ([facility]) COVID-19 Clin Com 02/26/24 02/27/24 02/28/24 13:44 06:31 06:57 WBC RBC Hgb Hct MCV MCH MCHC RDW Plt Count MPV Immature Gran % (Auto) Neut % (Auto) Lymph % (Auto) [place] % (Auto) Eos % (Auto) Baso % (Auto) Lymph # (Auto) [place] # (Auto) Eos # (Auto) Baso # (Auto) Abs Immat Gran (auto) Absolute Neuts (auto) Absolute Nucleated RBC Nucleated RBC % (auto) Sodium Potassium Chloride Carbon Dioxide Anion Gap BUN Creatinine Estim Creat Clear Calc Estimated GFR POC Glucose 86 111 111 Random Glucose Fasting Glucose Estimat Average Glucose Hemoglobin A1c % Calcium Total Bilirubin AST ALT Alkaline Phosphatase Ammonia Total Protein Albumin TSH Salicylates Acetaminophen Clozapine Norclozapine [place] Ethyl Alcohol COVID-19 ([facility]) COVID-19 [employer] Com 02/29/24 03/01/24 03/01/24 06:41 06:26 14:02 WBC RBC Hgb Hct MCV MCH MCHC RDW Plt Count MPV Immature Gran % (Auto) Neut % (Auto) Lymph % (Auto) [place] % (Auto) Eos % (Auto) Baso % (Auto) Lymph # (Auto) [place] # (Auto) Eos # (Auto) Baso # (Auto) Abs Immat Gran (auto) Absolute Neuts (auto) 3.7 Absolute Nucleated RBC Nucleated RBC % (auto) Sodium Potassium Chloride Carbon Dioxide Anion Gap BUN Creatinine Estim Creat Clear Calc Estimated GFR POC Glucose 122 H 113 Random Glucose Fasting Glucose Estimat Average Glucose Hemoglobin A1c % Calcium Total Bilirubin AST ALT Alkaline Phosphatase Ammonia Total Protein Albumin TSH Salicylates Acetaminophen Clozapine Norclozapine [place] Ethyl Alcohol COVID-19 ([facility]) COVID-19 [employer] 03/01/24 03/02/24 03/03/24 14:02 07:21 06:27 WBC RBC Hgb Hct MCV MCH MCHC RDW Plt Count MPV Immature Gran % (Auto) Neut % (Auto) Lymph % (Auto) [place] % (Auto) Eos % (Auto) Baso % (Auto) Lymph # (Auto) [place] # (Auto) Eos # (Auto) Baso # (Auto) Abs Immat Gran (auto) Absolute Neuts (auto) Cancelled Absolute Nucleated RBC Nucleated RBC % (auto) Sodium Potassium Chloride Carbon Dioxide Anion Gap BUN Creatinine Estim Creat Clear Calc Estimated GFR POC Glucose 151 H 133 H Random Glucose Fasting Glucose Estimat Average Glucose Hemoglobin A1c % Calcium Total Bilirubin AST ALT Alkaline Phosphatase Ammonia Total Protein Albumin TSH Salicylates Acetaminophen Clozapine Norclozapine [place] Ethyl Alcohol COVID-19 ([facility]) COVID-19 [employer] Com 03/03/24 03/04/24 03/04/24 19:46 05:45 06:37 WBC RBC Hgb Hct MCV MCH MCHC RDW Plt Count MPV Immature Gran % (Auto) Neut % (Auto) Lymph % (Auto) [place] % (Auto) Eos % (Auto) Baso % (Auto) Lymph # (Auto) [place] # (Auto) Eos # (Auto) Baso # (Auto) Abs Immat Gran (auto) Absolute Neuts (auto) Absolute Nucleated RBC Nucleated RBC % (auto) Sodium Potassium Chloride Carbon Dioxide Anion Gap BUN Creatinine Estim Creat Clear Calc Estimated GFR POC Glucose 80 108 99 Random Glucose Fasting Glucose Estimat Average Glucose Hemoglobin A1c % Calcium Total Bilirubin AST ALT Alkaline Phosphatase Ammonia Total Protein Albumin TSH Salicylates Acetaminophen Clozapine Norclozapine [place] Ethyl Alcohol COVID-19 ([facility]) COVID-19 [employer] Com 03/05/24 03/06/24 06:39 07:04 WBC RBC Hgb Hct MCV MCH MCHC RDW Plt Count MPV Immature Gran % (Auto) Neut % (Auto) Lymph % (Auto) [place] % (Auto) Eos % (Auto) Baso % (Auto) Lymph # (Auto) [place] # (Auto) Eos # (Auto) Baso # (Auto) Abs Immat Gran (auto) Absolute Neuts (auto) Absolute Nucleated RBC Nucleated RBC % (auto) Sodium Potassium Chloride Carbon Dioxide Anion Gap BUN Creatinine Estim Creat Clear Calc Estimated GFR POC Glucose 105 118 H Random Glucose Fasting Glucose Estimat Average Glucose Hemoglobin A1c % Calcium Total Bilirubin AST ALT Alkaline Phosphatase Ammonia Total Protein Albumin TSH Salicylates Acetaminophen Clozapine Norclozapine [place] Ethyl Alcohol COVID-19 ([facility]) COVID-19 [employer] Com Assessment and Plan Final Anesthetic Review Family History of Problems with Anesthesia: No History of Problems with Anesthesia: No
--- NOTE | 2024-03-06 11:31 | HO.POSTANES ---
Post Anesthesia Evaluation Post Anesthesia Evaluation Date of Service: 03/06/24 Vital Signs: Vital Signs Temp Pulse Resp BP Pulse Ox O2 Del Method O2 Flow Rate 03/06/24 09:51 96.8 F 90 18 139/85 95 Room Air 03/06/24 09:15 98.1 F 90 16 152/84 H 96 Room Air 03/06/24 09:00 92 16 157/84 H 97 Room Air 03/06/24 08:55 94 16 162/82 H 99 Nasal Cannula with ETCO2 2 03/06/24 08:50 84 16 158/83 H 99 Nasal Cannula with ETCO2 2 03/06/24 08:45 98.1 F 65 16 155/78 H 100 Nasal Cannula with ETCO2 2 03/06/24 06:58 97 F 76 18 147/83 H 95 Room Air 03/06/24 06:46 97.2 F 70 18 127/75 96 Anesthesia: General Mental Status: Awake Pain Control: Satisfactory Nausea/Vomiting: None Hydration: Adequate Anesthesia-Related Issues: No Anes. Related Issues
[2024-03-06 20:01] LABS: Glucose, Whole Blood 90 mg/dL (60-115)
[2024-03-06] MEDS: cloZAPine 200 MG, cloZAPine 50 MG 250 MG PO (20:05)
[2024-03-06] MEDS: Sennosides 8.6 MG TABLET 17.2 MG PO (20:08)
[2024-03-06] MEDS: Tamsulosin HCL 0.4 MG CAPSULE PO (20:08)
--- NOTE | 2024-03-06 22:24 | HO.ECTPROC ---
ECT Procedure Note Diagnosis/Treatment Date of Service: 03/06/24 Diagnosis: Catatonia and Schizoaffective Disorder Previous ECT Date: 03/04/24 Treatment: Series Interval Clinical Notes: The patient is more talkative, alert, answering simple questions, he looks much better, still hypoactive. No side effects with the preivuos ECT. Pt states he is feeling bettter but still delayed Time: Total time managing care of this patient today ____ minutes. ECT Settings Device: THYMATRON DGx Electrode Placement: Bitemporal Program/Pulse Width: 0.50 Energy Percent: 100 Seizure Duration By EEG (in seconds): 33 Medications Administration General Anesthetic: Etomidate (18) Muscle Relaxant: Succinylcholine (120) Airway Management Airway Management: Bag Mask Ventilation Treatment Recommendations No Changes Recommended: No change Notes: continue tx series Pt Tolerated Procedure w/o Issue: Yes
[2024-03-07] MEDS: Omeprazole 20 MG CAPSULE.DR PO (05:57)
[2024-03-07 07:33] LABS: Glucose, Whole Blood 116 mg/dL (60-115)
[2024-03-07 08:17] VITALS: BP 153/81; PULSE 83; RESP 17; TEMP 36.4; O2SAT 98
[2024-03-07] MEDS: Sertraline HCL 100 MG TABLET PO (08:18)
[2024-03-07] MEDS: cloNIDine HCL 0.1 MG TABLET 0.05 MG PO ×2 (08:19→20:22)
[2024-03-07] MEDS: Docusate Sodium 100 MG CAPSULE PO ×2 (08:19→20:24)
[2024-03-07] MEDS: polyethylene glycoL 3350 17 GM POWD.PACK PO (08:20)
--- NOTE | 2024-03-07 08:39 | P.PNPSI_ITS ---
Subjective Subjective Date of Service: 03/06/24 Reason For Visit: catatonia Subjective Notes: Conditional Voluntary Interim History: Pt slept most night. Pt much more brighter, no overt psychosis or delusions. He does have hypersalivation, which has been attributed to clozaril. No SI/HI. Diagnostics Vital Signs (24Hr): Vital Signs - 24 hr 03/06/24 08:45 03/06/24 08:50 03/06/24 08:55 Temperature 98.1 F Pulse Rate 65 84 94 Respiratory Rate 16 16 16 Blood Pressure 155/78 H 158/83 H 162/82 H Pulse Oximetry 100 99 99 Oxygen Delivery Method Nasal Cannula with ETCO2 Nasal Cannula with ETCO2 Nasal Cannula with ETCO2 Oxygen Flow Rate 2 2 2 03/06/24 09:00 03/06/24 09:15 03/06/24 09:51 Temperature 98.1 F 96.8 F Pulse Rate 92 90 90 Respiratory Rate 16 16 18 Blood Pressure 157/84 H 152/84 H 139/85 Pulse Oximetry 97 96 95 Oxygen Delivery Method Room Air Room Air Room Air Oxygen Flow Rate 03/06/24 20:00 03/06/24 20:05 03/07/24 08:17 Temperature 96.8 F 97.6 F Pulse Rate 66 83 Respiratory Rate 18 17 Blood Pressure 111/59 L 111/60 153/81 H Pulse Oximetry 97 98 Oxygen Delivery Method Room Air Room Air Oxygen Flow Rate BMI result Body Mass Index 31.0 Labs 02/14/24 14:36 02/25/24 08:12 Labs: Laboratory Results - last 48 hr 03/06/24 03/06/24 03/07/24 07:04 19:47 06:24 POC Glucose 118 H 90 116 H Imaging Radiology Impressions: ITS Impressions Chest X-Ray 01/07/24 13:27 IMPRESSION: Bronchial wall thickening may be infectious and/or inflammatory in etiology. Electronically signed by: Marianna Torres MD 01/07/2024 03:31 PM EDT Cervical Spine CT 02/13/24 14:54 IMPRESSION: Multilevel spondylosis likely representing DISH without acute fracture or trauma-related listhesis. A acute to subacute fracture of the syndesmophyte formation at C3 cannot be entire excluded. If patient's symptoms persist recommend non-IV contrast MRI cervical spine. Fleischner guidelines were followed. Electronically signed by: Mayank Irwin MD 02/13/2024 03:34 PM EST RP Head CT 02/13/24 14:54 IMPRESSION: No acute fracture, bony calvarium or acute intracranial hemorrhage. Stable brain. Electronically signed by: Mayank Irwin MD 02/13/2024 03:39 PM EST RP Hip CT 02/13/24 14:54 IMPRESSION: No acute fracture or dislocation right coxofemoral joints/right hip. Electronically signed by: Mayank Irwin MD 02/13/2024 03:48 PM EST RP Hip CT 02/13/24 14:54 IMPRESSION: No acute fracture or dislocation, left coxofemoral joint/hip. Electronically signed by: Mayank Irwin MD 02/13/2024 03:44 PM EST RP Cervical Spine MRI 02/14/24 14:41 IMPRESSION: Within the limitations of the study, 1. No definitive evidence of fracture involving the C3 syndesmophyte. 2. Multilevel cervical spondylosis without significant spinal canal stenosis or cord compression. Mild multilevel neural foraminal narrowing as described above. Electronically signed by: Villa Tello MD 02/14/2024 03:51 PM EST RP Chest X-Ray 02/21/24 07:23 IMPRESSION: Unremarkable examination. Electronically signed by: Josse Gregorio MD 02/21/2024 05:53 PM EST RP Medications Medications Current Medications Acetaminophen (Acetaminophen 325 Mg Tablet) 650 mg PO Q6H PRN PRN Reason: Headache/Pain Mild Scale (1-3) Last Admin: 02/14/24 01:05 Dose: 650 mg Al Hydroxide/Mg Hydroxide (Magnesium Hydrox/Alum Hydrox 30 Ml Oral.Susp) 30 ml PO Q6H PRN PRN Reason: Heartburn/Nausea Clonidine HCl (Clonidine Hcl 0.1 Mg Tablet) 0.05 mg PO BID [facility]; Protocol Last Admin: 03/07/24 08:19 Dose: 0.05 mg Clozapine 200 mg/ Clozapine 50 (mg) 250 mg PO DAILY@1930 [facility] Last Admin: 03/06/24 20:05 Dose: 250 mg Docusate Sodium (Docusate Sodium 100 Mg Capsule) 100 mg PO BID [facility] Last Admin: 03/07/24 08:19 Dose: 100 mg Glucose (Glucose Gel 15 Gm Gel..Gram.) 15 gm PO Q15M PRN; Protocol PRN Reason: per Hypoglycemia Standing Ord. Hydroxyzine HCl (Hydroxyzine Hcl 25 Mg Tablet) 25 mg PO Q6H PRN PRN Reason: Anxiety Last Admin: 02/20/24 20:05 Dose: 25 mg Insulin Human Lispro (Insulin Lispro 100 Unit/Ml 3 Ml Vial) 0 unit SUBCUT DAILY [facility]; Protocol Last Admin: 03/07/24 08:14 Dose: Not Given Magnesium Hydroxide (Milk Of Magnesia 30 Ml Oral.Susp) 30 ml PO DAILY PRN PRN Reason: Constipation Last Admin: 01/11/24 12:48 Dose: 30 ml Naloxone HCl (Naloxone Hcl 0.4 Mg/Ml Vial) 0.04 mg IVPUSH Q5M PRN PRN Reason: Excessive sedation or RR < 8 Naloxone HCl (Naloxone Hcl 0.4 Mg/Ml Vial) 0.04 mg IVPUSH Q5M PRN PRN Reason: Excessive sedation or RR < 8 Omeprazole (Omeprazole 20 Mg Capsule.Dr) 20 mg PO DAILY@0630 [facility] Last Admin: 03/07/24 05:57 Dose: 20 mg Polyethylene Glycol (Polyethylene Glycol 3350 17 Gm Powd.Pack) 17 gm PO DAILY [facility] Last Admin: 03/07/24 08:20 Dose: 17 gm Senna (Sennosides 8.6 Mg Tablet) 17.2 mg PO BEDTIME [facility] Last Admin: 03/06/24 20:08 Dose: 17.2 mg Sertraline HCl (Sertraline Hcl 100 Mg Tablet) 100 mg PO DAILY [facility] Last Admin: 03/07/24 08:18 Dose: 100 mg Tamsulosin HCl (Tamsulosin Hcl 0.4 Mg Capsule) 0.4 mg PO BEDTIME [facility] Last Admin: 03/06/24 20:08 Dose: 0.4 mg Trazodone HCl (Trazodone Hcl 50 Mg Tablet) 50 mg PO BEDTIME MRX1 PRN PRN Reason: Insomnia Last Admin: 02/24/24 21:18 Dose: 50 mg Allergies Allergies Allergy/AdvReac Type Severity Reaction Status Date / Time No Known Allergies [NKA] Allergy Unknown NONE Verified 03/01/24 06:35 Assessment & Plan Assessment & Plan (1) Schizophrenia, catatonic: Status: Acute Code(s): F20.2 - Catatonic schizophrenia Plan Patient is a 58-year-old male with a PMH significant for HTN, [id number] type 2 diabetes, BPH, schizoaffective disorder, and depression with catatonia admitted to [facility] with hospitalist consult ECT risk stratification. ECT risk stratification Patient with history of multiple prior ECT without apparent complications No apparent acute medical complaints, vitals and EKG reassuring RCRI class 1 risk, 0 points; no additional cardiac workup indicated Based on patient's history, exam, and EKG, there are no apparent contraindications for the planned procedure Plan 1. The patient remains catatonic, we will schedule for ECT next Monday. 2. Hospitalist already cleared him up after his last fall. 3. Continue one-to-one observation. 4. Continue with Clozaril and benzodiazepines. 5. ECT to be scheduled, we will need to contact his father for consent for the treatment. Finally we got consent and he had his 1st ECT on February 20 6. Ativan was increased up to 2 mg p.o. t.i.d. on February 19 02/24/24 cont plan of care cont ect some improvement noted 02/25/2024 Patient improving continue lorazepam continue ECT encourage out of bed 02/26/24 cont ect lorazepam encourage oob 02/27/24 Improved fx tolerating ect 03/02 remains doing much better; still blunted but good mood and more social, in [place] 03/06 continue tx. Reason for continued inpatient stay Substantial Risk for: inability to function Time Spent With Patient Time: Total time managing care of this patient today ____ minutes.
--- NOTE | 2024-03-07 08:43 | HO.PSYCHPN ---
Subjective Subjective Date of Service: 03/07/24 Reason For Visit: catatonia Subjective Notes: Conditional Voluntary Interim History: Pt slept most night.Pt with much brighter, much more functional. No s/s of catatonia. No SI/HI. Spontaneous speech. monitoring hypersalivation with clozaril- started on glycopyrrolate as it does increase risk of aspiration and choking while eating. Review of Systems Review of Systems Negative except for that which is stated in the HPI, though ROS admittedly difficult to obtain as patient has history of catatonia and with marked delay in response, occasionally not answering questions Yes Unobtainable due to mental status and Other (patient not answering ROS secondary to catatonic state) Mental Status Exam Mental Status Exam Patient Appearance: Well Grooomed and Appropriate Patient Orientation: Person, Place and Situation Level of Consciousness: Awake and Appropriate Patient Behavior: Appropriate, Cooperative, Passive and Good Eye Contact Mood Description: Calm and Appropriate Affect Description: Calm and Blunted Patient Cognition Impaired: Yes Ability to Follow Directions: Good Speech Pattern: Clear (still with some latency) Diagnostics Vital Signs (24Hr): Vital Signs - 24 hr 03/06/24 08:45 03/06/24 08:50 03/06/24 08:55 Temperature 98.1 F Pulse Rate 65 84 94 Respiratory Rate 16 16 16 Blood Pressure 155/78 H 158/83 H 162/82 H Pulse Oximetry 100 99 99 Oxygen Delivery Method Nasal Cannula with ETCO2 Nasal Cannula with ETCO2 Nasal Cannula with ETCO2 Oxygen Flow Rate 2 2 2 03/06/24 09:00 03/06/24 09:15 03/06/24 09:51 Temperature 98.1 F 96.8 F Pulse Rate 92 90 90 Respiratory Rate 16 16 18 Blood Pressure 157/84 H 152/84 H 139/85 Pulse Oximetry 97 96 95 Oxygen Delivery Method Room Air Room Air Room Air Oxygen Flow Rate 03/06/24 20:00 03/06/24 20:05 03/07/24 08:17 Temperature 96.8 F 97.6 F Pulse Rate 66 83 Respiratory Rate 18 17 Blood Pressure 111/59 L 111/60 153/81 H Pulse Oximetry 97 98 Oxygen Delivery Method Room Air Room Air Oxygen Flow Rate BMI result Body Mass Index 31.0 Labs 02/14/24 14:36 02/25/24 08:12 Labs: Laboratory Results - last 48 hr 03/06/24 03/06/24 03/07/24 07:04 19:47 06:24 POC Glucose 118 H 90 116 H Imaging Radiology Impressions: ITS Impressions Chest X-Ray 01/07/24 13:27 IMPRESSION: Bronchial wall thickening may be infectious and/or inflammatory in etiology. Electronically signed by: Marianna Torres MD 01/07/2024 03:31 PM EDT RP Cervical Spine CT 02/13/24 14:54 IMPRESSION: Multilevel spondylosis likely representing DISH without acute fracture or trauma-related listhesis. A acute to subacute fracture of the syndesmophyte formation at C3 cannot be entire excluded. If patient's symptoms persist recommend non-IV contrast MRI cervical spine. Fleischner guidelines were followed. Electronically signed by: Mayank Irwin MD 02/13/2024 03:34 PM EST RP Head CT 02/13/24 14:54 IMPRESSION: No acute fracture, bony calvarium or acute intracranial hemorrhage. Stable brain. Electronically signed by: Mayank Irwin MD 02/13/2024 03:39 PM EST RP Hip CT 02/13/24 14:54 IMPRESSION: No acute fracture or dislocation right coxofemoral joints/right hip. Electronically signed by: Mayank Irwin MD 02/13/2024 03:48 PM EST RP Hip CT 02/13/24 14:54 IMPRESSION: No acute fracture or dislocation, left coxofemoral joint/hip. Electronically signed by: Mayank Irwin MD 02/13/2024 03:44 PM EST RP Cervical Spine MRI 02/14/24 14:41 IMPRESSION: Within the limitations of the study, 1. No definitive evidence of fracture involving the C3 syndesmophyte. 2. Multilevel cervical spondylosis without significant spinal canal stenosis or cord compression. Mild multilevel neural foraminal narrowing as described above. Electronically signed by: Villa Tello MD 02/14/2024 03:51 PM EST RP Chest X-Ray 02/21/24 07:23 IMPRESSION: Unremarkable examination. Electronically signed by: Josse Gregorio MD 02/21/2024 05:53 PM EST RP Medications Medications Current Medications Acetaminophen (Acetaminophen 325 Mg Tablet) 650 mg PO Q6H PRN PRN Reason: Headache/Pain Mild Scale (1-3) Last Admin: 02/14/24 01:05 Dose: 650 mg Al Hydroxide/Mg Hydroxide (Magnesium Hydrox/Alum Hydrox 30 Ml Oral.Susp) 30 ml PO Q6H PRN PRN Reason: Heartburn/Nausea Clonidine HCl (Clonidine Hcl 0.1 Mg Tablet) 0.05 mg PO BID [facility]; Protocol Last Admin: 03/07/24 08:19 Dose: 0.05 mg Clozapine 200 mg/ Clozapine 50 (mg) 250 mg PO DAILY@1929 [facility] Last Admin: 03/06/24 20:05 Dose: 250 mg Docusate Sodium (Docusate Sodium 100 Mg Capsule) 100 mg PO BID [facility] Last Admin: 03/07/24 08:19 Dose: 100 mg Glucose (Glucose Gel 15 Gm Gel..Gram.) 15 gm PO Q15M PRN; Protocol PRN Reason: per Hypoglycemia Standing Ord. Hydroxyzine HCl (Hydroxyzine Hcl 25 Mg Tablet) 25 mg PO Q6H PRN PRN Reason: Anxiety Last Admin: 02/20/24 20:05 Dose: 25 mg Insulin Human Lispro (Insulin Lispro 100 Unit/Ml 3 Ml Vial) 0 unit SUBCUT DAILY [facility]; Protocol Last Admin: 03/07/24 08:14 Dose: Not Given Magnesium Hydroxide (Milk Of Magnesia 30 Ml Oral.Susp) 30 ml PO DAILY PRN PRN Reason: Constipation Last Admin: 01/11/24 12:48 Dose: 30 ml Naloxone HCl (Naloxone Hcl 0.4 Mg/Ml Vial) 0.04 mg IVPUSH Q5M PRN PRN Reason: Excessive sedation or RR < 8 Naloxone HCl (Naloxone Hcl 0.4 Mg/Ml Vial) 0.04 mg IVPUSH Q5M PRN PRN Reason: Excessive sedation or RR < 8 Omeprazole (Omeprazole 20 Mg Capsule.Dr) 20 mg PO DAILY@629 [facility] Last Admin: 03/07/24 05:57 Dose: 20 mg Polyethylene Glycol (Polyethylene Glycol 3350 17 Gm Powd.Pack) 17 gm PO DAILY [facility] Last Admin: 03/07/24 08:20 Dose: 17 gm Senna (Sennosides 8.6 Mg Tablet) 17.2 mg PO BEDTIME [facility] Last Admin: 03/06/24 20:08 Dose: 17.2 mg Sertraline HCl (Sertraline Hcl 100 Mg Tablet) 100 mg PO DAILY [facility] Last Admin: 03/07/24 08:18 Dose: 100 mg Tamsulosin HCl (Tamsulosin Hcl 0.4 Mg Capsule) 0.4 mg PO BEDTIME [facility] Last Admin: 03/06/24 20:08 Dose: 0.4 mg Trazodone HCl (Trazodone Hcl 50 Mg Tablet) 50 mg PO BEDTIME MRX1 PRN PRN Reason: Insomnia Last Admin: 02/24/24 21:18 Dose: 50 mg Allergies Allergies Allergy/AdvReac Type Severity Reaction Status Date / Time No Known Allergies [NKA] Allergy Unknown NONE Verified 03/01/24 06:35 Assessment & Plan Assessment & Plan (1) Schizophrenia, catatonic: Status: Acute Code(s): F20.2 - Catatonic schizophrenia Plan Patient is a 58-year-old male with a PMH significant for HTN, [id number] type 2 diabetes, BPH, schizoaffective disorder, and depression with catatonia admitted to [facility] with hospitalist consult ECT risk stratification. ECT risk stratification Patient with history of multiple prior ECT without apparent complications No apparent acute medical complaints, vitals and EKG reassuring RCRI class 1 risk, 0 points; no additional cardiac workup indicated Based on patient's history, exam, and EKG, there are no apparent contraindications for the planned procedure Plan 02/24/24 cont plan of care cont ect some improvement noted 02/25/2024 Patient improving continue lorazepam continue ECT encourage out of bed 02/26/24 cont ect lorazepam encourage oob 02/27/24 Improved fx tolerating ect 03/02 remains doing much better; still blunted but good mood and more social, in [place] 03/06 continue tx. 03/08- much improved with catatonia and psychosis. plan for dc most likely next week. Reason for continued inpatient stay Substantial Risk for: inability to function Time Spent With Patient Time: Total time managing care of this patient today ____ minutes.
[2024-03-07] MEDS: Glycopyrrolate 1 MG TABLET PO ×2 (11:39→20:24)
[2024-03-07] MEDS: cloZAPine 200 MG, cloZAPine 50 MG 250 MG PO (20:22)
[2024-03-07] MEDS: Sennosides 8.6 MG TABLET 17.2 MG PO (20:24)
[2024-03-07] MEDS: Tamsulosin HCL 0.4 MG CAPSULE PO (20:24)
[2024-03-08 06:55] LABS: Glucose, Whole Blood 108 mg/dL (60-115)
[2024-03-08 07:49] LABS: Neut%MD 65.3 %; Neutrophils Absolute Auto 3.4 x10*3/uL (2.0-8.3); WBCANC 5.2 X10*3/uL
[2024-03-08 08:27] VITALS: BP 153/66; PULSE 81; RESP 14; TEMP 36.4; O2SAT 98
[2024-03-08] MEDS: Docusate Sodium 100 MG CAPSULE PO ×2 (08:28→19:58)
[2024-03-08] MEDS: Glycopyrrolate 1 MG TABLET PO ×2 (08:28→19:56)
[2024-03-08] MEDS: Sertraline HCL 100 MG TABLET PO (08:28)
[2024-03-08] MEDS: cloNIDine HCL 0.1 MG TABLET 0.05 MG PO ×2 (08:28→19:57)
--- NOTE | 2024-03-08 13:02 | HO.PSYCHPN ---
Subjective Subjective Date of Service: 03/08/24 Reason For Visit: catatonia Interim History: Pt sleeping through the night. No behavioral concerns. He is visible on the unit. No s/s of catatonia, monitoring hypersalivation- started on glycopyrralate. Review of Systems Review of Systems Negative except for that which is stated in the HPI, though ROS admittedly difficult to obtain as patient has history of catatonia and with marked delay in response, occasionally not answering questions Yes Unobtainable due to mental status and Other (patient not answering ROS secondary to catatonic state) Mental Status Exam Mental Status Exam Patient Appearance: Appropriate Patient Orientation: Person and Situation Level of Consciousness: Awake and Appropriate Patient Behavior: Guarded and Passive Mood Description: Calm Affect Description: Constricted Patient Cognition Impaired: Yes Ability to Follow Directions: Good Speech Pattern: Clear Diagnostics Vital Signs (24Hr): Vital Signs - 24 hr 03/08/24 08:27 Temperature 97.5 F Pulse Rate 81 Respiratory Rate 14 Blood Pressure 153/66 H Pulse Oximetry 98 Oxygen Delivery Method Room Air BMI result Body Mass Index 31.0 Labs 02/14/24 14:36 02/25/24 08:12 Labs: Laboratory Results - last 48 hr 03/06/24 03/07/24 03/08/24 19:47 06:24 06:36 Absolute Neuts (auto) POC Glucose 90 116 H 108 03/08/24 07:33 Absolute Neuts (auto) 3.4 POC Glucose Imaging Radiology Impressions: ITS Impressions Chest X-Ray 01/07/24 13:27 IMPRESSION: Bronchial wall thickening may be infectious and/or inflammatory in etiology. Electronically signed by: Marianna Torres MD 01/07/2024 03:31 PM EDT RP Cervical Spine CT 02/13/24 14:54 IMPRESSION: Multilevel spondylosis likely representing DISH without acute fracture or trauma-related listhesis. A acute to subacute fracture of the syndesmophyte formation at C3 cannot be entire excluded. If patient's symptoms persist recommend non-IV contrast MRI cervical spine. Fleischner guidelines were followed. Electronically signed by: Mayank Irwin MD 02/13/2024 03:34 PM EST RP Head CT 02/13/24 14:54 IMPRESSION: No acute fracture, bony calvarium or acute intracranial hemorrhage. Stable brain. Electronically signed by: Mayank Irwin MD 02/13/2024 03:39 PM EST RP Hip CT 02/13/24 14:54 IMPRESSION: No acute fracture or dislocation right coxofemoral joints/right hip. Electronically signed by: Mayank Irwin MD 02/13/2024 03:48 PM EST RP Hip CT 02/13/24 14:54 IMPRESSION: No acute fracture or dislocation, left coxofemoral joint/hip. Electronically signed by: Mayank Irwin MD 02/13/2024 03:44 PM EST RP Cervical Spine MRI 02/14/24 14:41 IMPRESSION: Within the limitations of the study, 1. No definitive evidence of fracture involving the C3 syndesmophyte. 2. Multilevel cervical spondylosis without significant spinal canal stenosis or cord compression. Mild multilevel neural foraminal narrowing as described above. Electronically signed by: Villa Tello MD 02/14/2024 03:51 PM EST RP Chest X-Ray 02/21/24 07:23 IMPRESSION: Unremarkable examination. Electronically signed by: Josse Gregorio MD 02/21/2024 05:53 PM EST RP Medications Medications Current Medications Acetaminophen (Acetaminophen 325 Mg Tablet) 650 mg PO Q6H PRN PRN Reason: Headache/Pain Mild Scale (1-3) Last Admin: 02/14/24 01:05 Dose: 650 mg Al Hydroxide/Mg Hydroxide (Magnesium Hydrox/Alum Hydrox 30 Ml Oral.Susp) 30 ml PO Q6H PRN PRN Reason: Heartburn/Nausea Clonidine HCl (Clonidine Hcl 0.1 Mg Tablet) 0.05 mg PO BID [facility]; Protocol Last Admin: 03/08/24 08:28 Dose: 0.05 mg Clozapine 200 mg/ Clozapine 50 (mg) 250 mg PO DAILY@1930 [facility] Last Admin: 03/07/24 20:22 Dose: 250 mg Docusate Sodium (Docusate Sodium 100 Mg Capsule) 100 mg PO BID [facility] Last Admin: 03/08/24 08:28 Dose: 100 mg Glucose (Glucose Gel 15 Gm Gel..Gram.) 15 gm PO Q15M PRN; Protocol PRN Reason: per Hypoglycemia Standing Ord. Glycopyrrolate (Glycopyrrolate 1 Mg Tablet) 1 mg PO BID [facility] Last Admin: 03/08/24 08:28 Dose: 1 mg Hydroxyzine HCl (Hydroxyzine Hcl 25 Mg Tablet) 25 mg PO Q6H PRN PRN Reason: Anxiety Last Admin: 02/20/24 20:05 Dose: 25 mg Insulin Human Lispro (Insulin Lispro 100 Unit/Ml 3 Ml Vial) 0 unit SUBCUT DAILY [facility]; Protocol Last Admin: 03/08/24 08:29 Dose: Not Given Magnesium Hydroxide (Milk Of Magnesia 30 Ml Oral.Susp) 30 ml PO DAILY PRN PRN Reason: Constipation Last Admin: 01/11/24 12:48 Dose: 30 ml Naloxone HCl (Naloxone Hcl 0.4 Mg/Ml Vial) 0.04 mg IVPUSH Q5M PRN PRN Reason: Excessive sedation or RR < 8 Naloxone HCl (Naloxone Hcl 0.4 Mg/Ml Vial) 0.04 mg IVPUSH Q5M PRN PRN Reason: Excessive sedation or RR < 8 Omeprazole (Omeprazole 20 Mg Capsule.Dr) 20 mg PO DAILY@0630 [facility] Last Admin: 03/08/24 08:25 Dose: Not Given Polyethylene Glycol (Polyethylene Glycol 3350 17 Gm Powd.Pack) 17 gm PO DAILY [facility] Last Admin: 03/08/24 08:29 Dose: Not Given Senna (Sennosides 8.6 Mg Tablet) 17.2 mg PO BEDTIME [facility] Last Admin: 03/07/24 20:24 Dose: 17.2 mg Sertraline HCl (Sertraline Hcl 100 Mg Tablet) 100 mg PO DAILY [facility] Last Admin: 03/08/24 08:28 Dose: 100 mg Tamsulosin HCl (Tamsulosin Hcl 0.4 Mg Capsule) 0.4 mg PO BEDTIME [facility] Last Admin: 03/07/24 20:24 Dose: 0.4 mg Trazodone HCl (Trazodone Hcl 50 Mg Tablet) 50 mg PO BEDTIME MRX1 PRN PRN Reason: Insomnia Last Admin: 02/24/24 21:18 Dose: 50 mg Allergies Allergies Allergy/AdvReac Type Severity Reaction Status Date / Time No Known Allergies [NKA] Allergy Unknown NONE Verified 03/01/24 06:35 Assessment & Plan Assessment & Plan (1) Schizophrenia, catatonic: Status: Acute Code(s): F20.2 - Catatonic schizophrenia Plan Patient is a 58-year-old male with a PMH significant for HTN, [id number] type 2 diabetes, BPH, schizoaffective disorder, and depression with catatonia admitted to [facility] with hospitalist consult ECT risk stratification. ECT risk stratification Patient with history of multiple prior ECT without apparent complications No apparent acute medical complaints, vitals and EKG reassuring RCRI class 1 risk, 0 points; no additional cardiac workup indicated Based on patient's history, exam, and EKG, there are no apparent contraindications for the planned procedure Plan 02/24/24 cont plan of care cont ect some improvement noted 02/25/2024 Patient improving continue lorazepam continue ECT encourage out of bed 02/26/24 cont ect lorazepam encourage oob 02/27/24 Improved fx tolerating ect 03/02 remains doing much better; still blunted but good mood and more social, in [place] 03/06 continue tx. 03/08- much improved with catatonia and psychosis. plan for dc most likely next week. Reason for continued inpatient stay Substantial Risk for: inability to function Time Spent With Patient Time: Total time managing care of this patient today ____ minutes.
[2024-03-08 19:51] VITALS: BP 120/67; PULSE 82; RESP 16; TEMP 36.4; O2SAT 95
[2024-03-08] MEDS: cloZAPine 200 MG, cloZAPine 50 MG 250 MG PO (19:57)
[2024-03-08] MEDS: Tamsulosin HCL 0.4 MG CAPSULE PO (19:58)
[2024-03-08] MEDS: Sennosides 8.6 MG TABLET 17.2 MG PO (19:58)
[2024-03-09] MEDS: Omeprazole 20 MG CAPSULE.DR PO (06:05)
--- NOTE | 2024-03-09 06:50 | P.PNPSI_ITS ---
Subjective Subjective Date of Service: 03/09/24 Reason For Visit: catatonia Subjective Notes: Conditional Voluntary Healthcare Proxy: Yes Interim History: The nursing staff reported the patient had been pleasant, cooperative visible in the unit. Catatonia has resolved. On interview the patient reports that he is feeling much better, he improved remarkably with ECT. Mental Status Exam Mental Status Exam Patient Appearance: Appropriate Patient Orientation: Person and Situation Level of Consciousness: Awake and Appropriate Patient Behavior: Guarded and Passive Mood Description: Calm Affect Description: Constricted Patient Cognition Impaired: Yes Ability to Follow Directions: Good Speech Pattern: Clear Hallucinations: None Delusions: Ideas of Reference Thought Process: Distracted and Slowed Thinking Thought Content: positive for Circumstantial Judgement: Fair Diagnostics Vital Signs (24Hr): Vital Signs - 24 hr 03/08/24 08:27 03/08/24 19:51 Temperature 97.5 F 97.5 F Pulse Rate 81 82 Respiratory Rate 14 16 Blood Pressure 153/66 H 120/67 Pulse Oximetry 98 95 Oxygen Delivery Method Room Air Room Air BMI result Body Mass Index 31.0 Labs 02/14/24 14:36 02/25/24 08:12 Labs: Laboratory Results - last 48 hr 03/07/24 03/08/24 03/08/24 06:24 06:36 07:33 Absolute Neuts (auto) 3.4 POC Glucose 116 H 108 Imaging Radiology Impressions: ITS Impressions Chest X-Ray 01/07/24 13:27 IMPRESSION: Bronchial wall thickening may be infectious and/or inflammatory in etiology. Electronically signed by: Marianna Torres MD 01/07/2024 03:31 PM EDT RP Cervical Spine CT 02/13/24 14:54 IMPRESSION: Multilevel spondylosis likely representing DISH without acute fracture or trauma-related listhesis. A acute to subacute fracture of the syndesmophyte formation at C3 cannot be entire excluded. If patient's symptoms persist recommend non-IV contrast MRI cervical spine. Fleischner guidelines were followed. Electronically signed by: Mayank Irwin MD 02/13/2024 03:34 PM EST RP Head CT 02/13/24 14:54 IMPRESSION: No acute fracture, bony calvarium or acute intracranial hemorrhage. Stable brain. Electronically signed by: Mayank Irwin MD 02/13/2024 03:39 PM EST RP Hip CT 02/13/24 14:54 IMPRESSION: No acute fracture or dislocation right coxofemoral joints/right hip. Electronically signed by: Mayank Irwin MD 02/13/2024 03:48 PM EST RP Hip CT 02/13/24 14:54 IMPRESSION: No acute fracture or dislocation, left coxofemoral joint/hip. Electronically signed by: Mayank Irwin MD 02/13/2024 03:44 PM EST RP Cervical Spine MRI 02/14/24 14:41 IMPRESSION: Within the limitations of the study, 1. No definitive evidence of fracture involving the C3 syndesmophyte. 2. Multilevel cervical spondylosis without significant spinal canal stenosis or cord compression. Mild multilevel neural foraminal narrowing as described above. Electronically signed by: Villa Tello MD 02/14/2024 03:51 PM EST RP Chest X-Ray 02/21/24 07:23 IMPRESSION: Unremarkable examination. Electronically signed by: Josse Gregorio MD 02/21/2024 05:53 PM EST RP Medications Medications Current Medications Acetaminophen (Acetaminophen 325 Mg Tablet) 650 mg PO Q6H PRN PRN Reason: Headache/Pain Mild Scale (1-3) Last Admin: 02/14/24 01:05 Dose: 650 mg Al Hydroxide/Mg Hydroxide (Magnesium Hydrox/Alum Hydrox 30 Ml Oral.Susp) 30 ml PO Q6H PRN PRN Reason: Heartburn/Nausea Clonidine HCl (Clonidine Hcl 0.1 Mg Tablet) 0.05 mg PO BID [facility]; Protocol Last Admin: 03/08/24 19:57 Dose: 0.05 mg Clozapine 200 mg/ Clozapine 50 (mg) 250 mg PO DAILY@1930 [facility] Last Admin: 03/08/24 19:57 Dose: 250 mg Docusate Sodium (Docusate Sodium 100 Mg Capsule) 100 mg PO BID [facility] Last Admin: 03/08/24 19:58 Dose: 100 mg Glucose (Glucose Gel 15 Gm Gel..Gram.) 15 gm PO Q15M PRN; Protocol PRN Reason: per Hypoglycemia Standing Ord. Glycopyrrolate (Glycopyrrolate 1 Mg Tablet) 1 mg PO BID [facility] Last Admin: 03/08/24 19:56 Dose: 1 mg Hydroxyzine HCl (Hydroxyzine Hcl 25 Mg Tablet) 25 mg PO Q6H PRN PRN Reason: Anxiety Last Admin: 02/20/24 20:05 Dose: 25 mg Insulin Human Lispro (Insulin Lispro 100 Unit/Ml 3 Ml Vial) 0 unit SUBCUT DAILY [facility]; Protocol Last Admin: 03/08/24 08:29 Dose: Not Given Magnesium Hydroxide (Milk Of Magnesia 30 Ml Oral.Susp) 30 ml PO DAILY PRN PRN Reason: Constipation Last Admin: 01/11/24 12:48 Dose: 30 ml Naloxone HCl (Naloxone Hcl 0.4 Mg/Ml Vial) 0.04 mg IVPUSH Q5M PRN PRN Reason: Excessive sedation or RR < 8 Naloxone HCl (Naloxone Hcl 0.4 Mg/Ml Vial) 0.04 mg IVPUSH Q5M PRN PRN Reason: Excessive sedation or RR < 8 Omeprazole (Omeprazole 20 Mg Capsule.Dr) 20 mg PO DAILY@0630 [facility] Last Admin: 03/09/24 06:05 Dose: 20 mg Polyethylene Glycol (Polyethylene Glycol 3350 17 Gm Powd.Pack) 17 gm PO DAILY [facility] Last Admin: 03/08/24 08:29 Dose: Not Given Senna (Sennosides 8.6 Mg Tablet) 17.2 mg PO BEDTIME [facility] Last Admin: 03/08/24 19:58 Dose: 17.2 mg Sertraline HCl (Sertraline Hcl 100 Mg Tablet) 100 mg PO DAILY [facility] Last Admin: 03/08/24 08:28 Dose: 100 mg Tamsulosin HCl (Tamsulosin Hcl 0.4 Mg Capsule) 0.4 mg PO BEDTIME [facility] Last Admin: 03/08/24 19:58 Dose: 0.4 mg Trazodone HCl (Trazodone Hcl 50 Mg Tablet) 50 mg PO BEDTIME MRX1 PRN PRN Reason: Insomnia Last Admin: 02/24/24 21:18 Dose: 50 mg Allergies Allergies Allergy/AdvReac Type Severity Reaction Status Date / Time No Known Allergies [NKA] Allergy Unknown NONE Verified 03/01/24 06:35 Assessment & Plan Assessment & Plan (1) Schizophrenia, catatonic: Status: Acute Code(s): F20.2 - Catatonic schizophrenia Plan Patient is a 58-year-old male with a PMH significant for HTN, [id number] type 2 diabetes, BPH, schizoaffective disorder, and depression with catatonia admitted to [facility] with hospitalist consult ECT risk stratification. ECT risk stratification Patient with history of multiple prior ECT without apparent complications No apparent acute medical complaints, vitals and EKG reassuring RCRI class 1 risk, 0 points; no additional cardiac workup indicated Based on patient's history, exam, and EKG, there are no apparent contraindications for the planned procedure Plan 02/24/24 cont plan of care cont ect some improvement noted 02/25/2024 Patient improving continue lorazepam continue ECT encourage out of bed 02/26/24 cont ect lorazepam encourage oob 02/27/24 Improved fx tolerating ect 03/02 remains doing much better; still blunted but good mood and more social, in [place] 03/06 continue tx. 03/08- much improved with catatonia and psychosis. plan for dc most likely next week. 03/09 continue same treatment, much better since ECT was started. Reason for continued inpatient stay Substantial Risk for: inability to function, rapid decompensation and med/psych decompensation Time Spent With Patient Time: Total time managing care of this patient today _20___ minutes.
[2024-03-09 06:54] LABS: Glucose, Whole Blood 113 mg/dL (60-115)
[2024-03-09 07:54] VITALS: BP 117/76; PULSE 79; RESP 18; TEMP 36.2; O2SAT 95
[2024-03-09] MEDS: polyethylene glycoL 3350 17 GM POWD.PACK PO (08:17)
[2024-03-09] MEDS: Glycopyrrolate 1 MG TABLET PO ×2 (08:17→19:44)
[2024-03-09] MEDS: cloNIDine HCL 0.1 MG TABLET 0.05 MG PO ×2 (08:18→19:44)
[2024-03-09] MEDS: Sertraline HCL 100 MG TABLET PO (08:18)
[2024-03-09] MEDS: Docusate Sodium 100 MG CAPSULE PO ×2 (08:18→19:44)
[2024-03-09 19:41] VITALS: BP 119/72; PULSE 79; RESP 15; TEMP 36.3; O2SAT 97
[2024-03-09] MEDS: Sennosides 8.6 MG TABLET 17.2 MG PO (19:43)
[2024-03-09] MEDS: cloZAPine 200 MG, cloZAPine 50 MG 250 MG PO (19:43)
[2024-03-09 19:44] VITALS: BP 119/72
[2024-03-09] MEDS: Tamsulosin HCL 0.4 MG CAPSULE PO (19:44)
[2024-03-09] MEDS: hydrOXYzine HCL 25 MG TABLET PO (22:18)
[2024-03-10] MEDS: Omeprazole 20 MG CAPSULE.DR PO (06:18)
[2024-03-10 06:38] LABS: Glucose, Whole Blood 106 mg/dL (60-115)
--- NOTE | 2024-03-10 06:50 | HO.PSYCHPN ---
Subjective Subjective Date of Service: 03/10/24 Reason For Visit: catatonia Subjective Notes: Conditional Voluntary Healthcare Proxy: Yes Interim History: The nursing staff reported the patient had been redirectable, visible in the unit, talkative. On interview the patient reports that he is feeling much better there is resolution of catatonia with ECT. Mental Status Exam Mental Status Exam Patient Appearance: Appropriate Patient Orientation: Person and Situation Level of Consciousness: Awake and Appropriate Patient Behavior: Guarded and Passive Mood Description: Withdrawn Affect Description: Constricted Patient Cognition Impaired: Yes Ability to Follow Directions: Good Speech Pattern: Clear Hallucinations: None Delusions: Ideas of Reference Thought Process: Distracted and Slowed Thinking Thought Content: positive for [place] and positive for Poverty of Content Judgement: Fair Diagnostics Vital Signs (24Hr): Vital Signs - 24 hr 03/09/24 07:54 03/09/24 19:41 03/09/24 19:44 Temperature 97.1 F 97.3 F Pulse Rate 79 79 Respiratory Rate 18 15 Blood Pressure 117/76 119/72 119/72 Pulse Oximetry 95 97 Oxygen Delivery Method Room Air Room Air BMI result Body Mass Index 31.0 Labs 02/14/24 14:36 02/25/24 08:12 Labs: Laboratory Results - last 48 hr 03/08/24 03/08/24 03/09/24 06:36 07:33 06:42 Absolute Neuts (auto) 3.4 POC Glucose 108 113 03/10/24 06:30 Absolute Neuts (auto) POC Glucose 106 Imaging Radiology Impressions: ITS Impressions Chest X-Ray 01/07/24 13:27 IMPRESSION: Bronchial wall thickening may be infectious and/or inflammatory in etiology. Electronically signed by: Marianna Torres MD 01/07/2024 03:31 PM EDT RP Cervical Spine CT 02/13/24 14:54 IMPRESSION: Multilevel spondylosis likely representing DISH without acute fracture or trauma-related listhesis. A acute to subacute fracture of the syndesmophyte formation at C3 cannot be entire excluded. If patient's symptoms persist recommend non-IV contrast MRI cervical spine. Fleischner guidelines were followed. Electronically signed by: Mayank Irwin MD 02/13/2024 03:34 PM EST RP Head CT 11/19/24 14:54 IMPRESSION: No acute fracture, bony calvarium or acute intracranial hemorrhage. Stable brain. Electronically signed by: Mayank Irwin MD 02/13/2024 03:39 PM EST RP Hip CT 02/13/24 14:54 IMPRESSION: No acute fracture or dislocation right coxofemoral joints/right hip. Electronically signed by: Mayank Irwin MD 02/13/2024 03:48 PM EST RP Hip CT 02/13/24 14:54 IMPRESSION: No acute fracture or dislocation, left coxofemoral joint/hip. Electronically signed by: Mayank Irwin MD 02/13/2024 03:44 PM EST RP Cervical Spine MRI 02/14/24 14:41 IMPRESSION: Within the limitations of the study, 1. No definitive evidence of fracture involving the C3 syndesmophyte. 2. Multilevel cervical spondylosis without significant spinal canal stenosis or cord compression. Mild multilevel neural foraminal narrowing as described above. Electronically signed by: Villa Tello MD 02/14/2024 03:51 PM EST RP Chest X-Ray 02/21/24 07:23 IMPRESSION: Unremarkable examination. Electronically signed by: Josse Gregorio MD 02/21/2024 05:53 PM EST RP Medications Medications Current Medications Acetaminophen (Acetaminophen 325 Mg Tablet) 650 mg PO Q6H PRN PRN Reason: Headache/Pain Mild Scale (1-3) Last Admin: 02/14/24 01:05 Dose: 650 mg Al Hydroxide/Mg Hydroxide (Magnesium Hydrox/Alum Hydrox 30 Ml Oral.Susp) 30 ml PO Q6H PRN PRN Reason: Heartburn/Nausea Clonidine HCl (Clonidine Hcl 0.1 Mg Tablet) 0.05 mg PO BID [facility]; Protocol Last Admin: 03/09/24 19:44 Dose: 0.05 mg Clozapine 200 mg/ Clozapine 50 (mg) 250 mg PO DAILY@1930 [facility] Last Admin: 03/09/24 19:43 Dose: 250 mg Docusate Sodium (Docusate Sodium 100 Mg Capsule) 100 mg PO BID [facility] Last Admin: 03/09/24 19:44 Dose: 100 mg Glucose (Glucose Gel 15 Gm Gel..Gram.) 15 gm PO Q15M PRN; Protocol PRN Reason: per Hypoglycemia Standing Ord. Glycopyrrolate (Glycopyrrolate 1 Mg Tablet) 1 mg PO BID [facility] Last Admin: 03/09/24 19:44 Dose: 1 mg Hydroxyzine HCl (Hydroxyzine Hcl 25 Mg Tablet) 25 mg PO Q6H PRN PRN Reason: Anxiety Last Admin: 03/09/24 22:18 Dose: 25 mg Insulin Human Lispro (Insulin Lispro 100 Unit/Ml 3 Ml Vial) 0 unit SUBCUT DAILY [facility]; Protocol Last Admin: 03/09/24 08:36 Dose: Not Given Magnesium Hydroxide (Milk Of Magnesia 30 Ml Oral.Susp) 30 ml PO DAILY PRN PRN Reason: Constipation Last Admin: 01/11/24 12:48 Dose: 30 ml Naloxone HCl (Naloxone Hcl 0.4 Mg/Ml Vial) 0.04 mg IVPUSH Q5M PRN PRN Reason: Excessive sedation or RR < 8 Naloxone HCl (Naloxone Hcl 0.4 Mg/Ml Vial) 0.04 mg IVPUSH Q5M PRN PRN Reason: Excessive sedation or RR < 8 Omeprazole (Omeprazole 20 Mg Capsule.Dr) 20 mg PO DAILY@0630 [facility] Last Admin: 03/10/24 06:18 Dose: 20 mg Polyethylene Glycol (Polyethylene Glycol 3350 17 Gm Powd.Pack) 17 gm PO DAILY [facility] Last Admin: 03/09/24 08:17 Dose: 17 gm Senna (Sennosides 8.6 Mg Tablet) 17.2 mg PO BEDTIME [facility] Last Admin: 03/09/24 19:43 Dose: 17.2 mg Sertraline HCl (Sertraline Hcl 100 Mg Tablet) 100 mg PO DAILY [facility] Last Admin: 03/09/24 08:18 Dose: 100 mg Tamsulosin HCl (Tamsulosin Hcl 0.4 Mg Capsule) 0.4 mg PO BEDTIME [facility] Last Admin: 03/09/24 19:44 Dose: 0.4 mg Trazodone HCl (Trazodone Hcl 50 Mg Tablet) 50 mg PO BEDTIME MRX1 PRN PRN Reason: Insomnia Last Admin: 02/24/24 21:18 Dose: 50 mg Allergies Allergies Allergy/AdvReac Type Severity Reaction Status Date / Time No Known Allergies [NKA] Allergy Unknown NONE Verified 03/01/24 06:35 Assessment & Plan Assessment & Plan (1) Schizophrenia, catatonic: Status: Acute Code(s): F20.2 - Catatonic schizophrenia Plan Patient is a 58-year-old male with a PMH significant for HTN, [id number] type 2 diabetes, BPH, schizoaffective disorder, and depression with catatonia admitted to [facility] with hospitalist consult ECT risk stratification. ECT risk stratification Patient with history of multiple prior ECT without apparent complications No apparent acute medical complaints, vitals and EKG reassuring RCRI class 1 risk, 0 points; no additional cardiac workup indicated Based on patient's history, exam, and EKG, there are no apparent contraindications for the planned procedure Plan 02/24/24 cont plan of care cont ect some improvement noted 02/25/2024 Patient improving continue lorazepam continue ECT encourage out of bed 02/26/24 cont ect lorazepam encourage oob 02/27/24 Improved fx tolerating ect 03/02 remains doing much better; still blunted but good mood and more social, in [place] 03/06 continue tx. 03/08- much improved with catatonia and psychosis. plan for dc most likely next week. 03/09 continue same treatment, much better since ECT was started. 03/10 continue same treatment Reason for continued inpatient stay Substantial Risk for: inability to function, rapid decompensation and med/psych decompensation Time Spent With Patient Time: Total time managing care of this patient today _20___ minutes.
[2024-03-10 08:00] VITALS: BP 167/77; PULSE 66; RESP 18; TEMP 36; O2SAT 99
[2024-03-10] MEDS: Glycopyrrolate 1 MG TABLET PO ×2 (08:02→19:52)
[2024-03-10] MEDS: Sertraline HCL 100 MG TABLET PO (08:02)
[2024-03-10] MEDS: Docusate Sodium 100 MG CAPSULE PO ×2 (08:02→19:52)
[2024-03-10] MEDS: cloNIDine HCL 0.1 MG TABLET 0.05 MG PO ×2 (08:02→19:51)
[2024-03-10] MEDS: hydrOXYzine HCL 25 MG TABLET PO ×2 (14:55→19:51)
[2024-03-10 19:35] VITALS: BP 114/64; PULSE 81; RESP 16; TEMP 36.5; O2SAT 98
[2024-03-10 19:51] VITALS: BP 114/64
[2024-03-10] MEDS: cloZAPine 200 MG, cloZAPine 50 MG 250 MG PO (19:51)
[2024-03-10] MEDS: Tamsulosin HCL 0.4 MG CAPSULE PO (19:52)
[2024-03-10] MEDS: Sennosides 8.6 MG TABLET 17.2 MG PO (19:52)
[2024-03-11] MEDS: Omeprazole 20 MG CAPSULE.DR PO (06:28)
[2024-03-11 06:34] LABS: Glucose, Whole Blood 99 mg/dL (60-115)
[2024-03-11 08:05] VITALS: BP 125/79; PULSE 78; RESP 18; TEMP 36.3; O2SAT 100
[2024-03-11] MEDS: cloNIDine HCL 0.1 MG TABLET 0.05 MG PO (08:07)
[2024-03-11] MEDS: Docusate Sodium 100 MG CAPSULE PO ×2 (08:07→20:22)
[2024-03-11] MEDS: Glycopyrrolate 1 MG TABLET PO (08:07)
[2024-03-11] MEDS: Sertraline HCL 100 MG TABLET PO (08:07)
--- NOTE | 2024-03-11 11:02 | HO.PSYCHPN ---
Subjective Subjective Date of Service: 03/11/24 Reason For Visit: catatonia Subjective Notes: Conditional Voluntary Interim History: Pt slept through the night. He is much more alert, aware of surroundings. No s/s of catatonia. No overt signs of psychosis or delusions He is noted to have less hypersalivation but addition of glycopyrrolate has exacerbated underlying dyskenisia- noted involuntary perioral movements and resting tremors- more pronounced on right hand. He denies constipation and reports daily BM. He has right side lower extremity edema- no pain, no erythema, no s/s of infection, skin intact. VS stable. Diagnostics Vital Signs (24Hr): Vital Signs - 24 hr 03/10/24 19:35 03/10/24 19:51 03/11/24 08:05 Temperature 97.7 F 97.3 F Pulse Rate 81 78 Respiratory Rate 16 18 Blood Pressure 114/64 114/64 125/79 Pulse Oximetry 98 100 Oxygen Delivery Method Room Air Room Air BMI result Body Mass Index 31.0 Labs 02/14/24 14:36 02/25/24 08:12 Labs: Laboratory Results - last 48 hr 03/10/24 03/11/24 06:30 06:31 POC Glucose 106 99 Imaging Radiology Impressions: ITS Impressions Chest X-Ray 01/07/24 13:27 IMPRESSION: Bronchial wall thickening may be infectious and/or inflammatory in etiology. Electronically signed by: Marianna Torres MD 01/07/2024 03:31 PM EDT RP Cervical Spine CT 02/13/24 14:54 IMPRESSION: Multilevel spondylosis likely representing DISH without acute fracture or trauma-related listhesis. A acute to subacute fracture of the syndesmophyte formation at C3 cannot be entire excluded. If patient's symptoms persist recommend non-IV contrast MRI cervical spine. Fleischner guidelines were followed. Electronically signed by: Mayank Irwin MD 02/13/2024 03:34 PM EST RP Head CT 02/13/24 14:54 IMPRESSION: No acute fracture, bony calvarium or acute intracranial hemorrhage. Stable brain. Electronically signed by: Mayank Irwin MD 02/13/2024 03:39 PM EST RP Hip CT 02/13/24 14:54 IMPRESSION: No acute fracture or dislocation right coxofemoral joints/right hip. Electronically signed by: Mayank Iwrin MD 02/13/2024 03:48 PM EST RP Hip CT 02/13/24 14:54 IMPRESSION: No acute fracture or dislocation, left coxofemoral joint/hip. Electronically signed by: Mayank Irwin MD 02/13/2024 03:44 PM EST RP Cervical Spine MRI 02/14/24 14:41 IMPRESSION: Within the limitations of the study, 1. No definitive evidence of fracture involving the C3 syndesmophyte. 2. Multilevel cervical spondylosis without significant spinal canal stenosis or cord compression. Mild multilevel neural foraminal narrowing as described above. Electronically signed by: Villa Tello MD 02/14/2024 03:51 PM EST RP Chest X-Ray 02/21/24 07:23 IMPRESSION: Unremarkable examination. Electronically signed by: Josse Gregorio MD 02/21/2024 05:53 PM EST RP Medications Medications Current Medications Acetaminophen (Acetaminophen 325 Mg Tablet) 650 mg PO Q6H PRN PRN Reason: Headache/Pain Mild Scale (1-3) Last Admin: 02/14/24 01:05 Dose: 650 mg Al Hydroxide/Mg Hydroxide (Magnesium Hydrox/Alum Hydrox 30 Ml Oral.Susp) 30 ml PO Q6H PRN PRN Reason: Heartburn/Nausea Clonidine HCl (Clonidine Hcl 0.1 Mg Tablet) 0.05 mg PO BID [facility]; Protocol Last Admin: 03/11/24 08:07 Dose: 0.05 mg Clozapine 200 mg/ Clozapine 50 (mg) 250 mg PO DAILY@1930 [facility] Last Admin: 03/10/24 19:51 Dose: 250 mg Docusate Sodium (Docusate Sodium 100 Mg Capsule) 100 mg PO BID [facility] Last Admin: 03/11/24 08:07 Dose: 100 mg Glucose (Glucose Gel 15 Gm Gel..Gram.) 15 gm PO Q15M PRN; Protocol PRN Reason: per Hypoglycemia Standing Ord. Glycopyrrolate (Glycopyrrolate 1 Mg Tablet) 1 mg PO BID [facility] Last Admin: 03/11/24 08:07 Dose: 1 mg Hydroxyzine HCl (Hydroxyzine Hcl 25 Mg Tablet) 25 mg PO Q6H PRN PRN Reason: Anxiety Last Admin: 03/10/24 19:51 Dose: 25 mg Insulin Human Lispro (Insulin Lispro 100 Unit/Ml 3 Ml Vial) 0 unit SUBCUT DAILY [facility]; Protocol Last Admin: 03/11/24 08:09 Dose: Not Given Magnesium Hydroxide (Milk Of Magnesia 30 Ml Oral.Susp) 30 ml PO DAILY PRN PRN Reason: Constipation Last Admin: 01/11/24 12:48 Dose: 30 ml Naloxone HCl (Naloxone Hcl 0.4 Mg/Ml Vial) 0.04 mg IVPUSH Q5M PRN PRN Reason: Excessive sedation or RR < 8 Naloxone HCl (Naloxone Hcl 0.4 Mg/Ml Vial) 0.04 mg IVPUSH Q5M PRN PRN Reason: Excessive sedation or RR < 8 Omeprazole (Omeprazole 20 Mg Capsule.Dr) 20 mg PO DAILY@0630 [facility] Last Admin: 03/11/24 06:28 Dose: 20 mg Polyethylene Glycol (Polyethylene Glycol 3350 17 Gm Powd.Pack) 17 gm PO DAILY [facility] Last Admin: 03/11/24 08:08 Dose: Not Given Senna (Sennosides 8.6 Mg Tablet) 17.2 mg PO BEDTIME [facility] Last Admin: 03/10/24 19:52 Dose: 17.2 mg Sertraline HCl (Sertraline Hcl 100 Mg Tablet) 100 mg PO DAILY [facility] Last Admin: 03/11/24 08:07 Dose: 100 mg Tamsulosin HCl (Tamsulosin Hcl 0.4 Mg Capsule) 0.4 mg PO BEDTIME [facility] Last Admin: 03/10/24 19:52 Dose: 0.4 mg Trazodone HCl (Trazodone Hcl 50 Mg Tablet) 50 mg PO BEDTIME MRX1 PRN PRN Reason: Insomnia Last Admin: 02/24/24 21:18 Dose: 50 mg Allergies Allergies Allergy/AdvReac Type Severity Reaction Status Date / Time No Known Allergies [NKA] Allergy Unknown NONE Verified 03/01/24 06:35 Assessment & Plan Assessment & Plan (1) Schizophrenia, catatonic: Status: Acute Code(s): F20.2 - Catatonic schizophrenia Plan Patient is a 58-year-old male with a PMH significant for HTN, [id number] type 2 diabetes, BPH, schizoaffective disorder, and depression with catatonia admitted to [facility] psych with hospitalist consult ECT risk stratification. ECT risk stratification Patient with history of multiple prior ECT without apparent complications No apparent acute medical complaints, vitals and EKG reassuring RCRI class 1 risk, 0 points; no additional cardiac workup indicated Based on patient's history, exam, and EKG, there are no apparent contraindications for the planned procedure Plan 02/24/24 cont plan of care cont ect some improvement noted 02/25/2024 Patient improving continue lorazepam continue ECT encourage out of bed 02/26/24 cont ect lorazepam encourage oob 02/27/24 Improved fx tolerating ect 03/02 remains doing much better; still blunted but good mood and more social, in [place] 03/06 continue tx. 03/08- much improved with catatonia and psychosis. plan for dc most likely next week. 03/09 continue same treatment, much better since ECT was started. 03/10 continue same treatment 03/11- lower glycopyrrolate to 0.5mg po BID due to exacerbation of dyskinesia (perioral involuntary movement, resting tremor on right hand). He has R LE edema- add lilliana stocking, consider consult to hospitalist. psychiatrically stable. no signs of catatonia nor psychosis or delusions. Reason for continued inpatient stay Substantial Risk for: inability to function Time Spent With Patient Time: Total time managing care of this patient today ____ minutes.
[2024-03-11 20:00] VITALS: BP 135/61; PULSE 75; RESP 16; TEMP 36.4; O2SAT 96
[2024-03-11] MEDS: Sennosides 8.6 MG TABLET 17.2 MG PO (20:21)
[2024-03-11] MEDS: Glycopyrrolate 1 MG TABLET 0.5 MG PO (20:21)
[2024-03-11] MEDS: cloZAPine 200 MG, cloZAPine 50 MG 250 MG PO (20:21)
[2024-03-11] MEDS: Tamsulosin HCL 0.4 MG CAPSULE PO (20:22)
[2024-03-12] MEDS: Omeprazole 20 MG CAPSULE.DR PO (06:15)
[2024-03-12 06:24] LABS: Glucose, Whole Blood 117 mg/dL (60-115)
[2024-03-12 08:00] VITALS: BP 126/38; PULSE 78; RESP 18; TEMP 36.2; O2SAT 98
[2024-03-12] MEDS: Sertraline HCL 100 MG TABLET PO (08:34)
[2024-03-12] MEDS: Glycopyrrolate 1 MG TABLET 0.5 MG PO ×2 (08:34→20:26)
[2024-03-12] MEDS: Docusate Sodium 100 MG CAPSULE PO ×2 (08:34→20:26)
--- NOTE | 2024-03-12 10:02 | HO.PSYCHPN ---
Subjective Subjective Date of Service: 03/12/24 Reason For Visit: catatonia Subjective Notes: Conditional Voluntary Interim History: Pt slept through the night. He is much more alert, aware of surroundings. No s/s of catatonia. No overt signs of psychosis or delusions He is noted to have less hypersalivation but addition of glycopyrrolate has exacerbated underlying dyskinesia- noted involuntary perioral movements and resting tremors- more pronounced on right hand. He denies constipation and reports daily BM. He has right side lower extremity edema- no pain, no erythema, no s/s of infection, skin intact. VS stable. Meeting with [facility] to discuss aftercare plan. Review of Systems Review of Systems Negative except for that which is stated in the HPI, though ROS admittedly difficult to obtain as patient has history of catatonia and with marked delay in response, occasionally not answering questions Yes Unobtainable due to mental status and Other (patient not answering ROS secondary to catatonic state) Mental Status Exam Mental Status Exam Patient Appearance: Appropriate Patient Orientation: Person and Situation Level of Consciousness: Awake and Appropriate Patient Behavior: Guarded and Passive Mood Description: Withdrawn Affect Description: Constricted Patient Cognition Impaired: Yes Ability to Follow Directions: Good Speech Pattern: Clear Diagnostics Vital Signs (24Hr): Vital Signs - 24 hr 03/11/24 20:00 03/12/24 08:00 Temperature 97.6 F 97.1 F Pulse Rate 75 78 Respiratory Rate 16 18 Blood Pressure 135/61 126/38 L Pulse Oximetry 96 98 Oxygen Delivery Method Room Air Room Air BMI result Body Mass Index 31.0 Labs 02/14/24 14:36 02/25/24 08:12 Labs: Laboratory Results - last 48 hr 03/11/24 03/12/24 06:31 06:14 POC Glucose 99 117 H Imaging Radiology Impressions: ITS Impressions Chest X-Ray 01/07/24 13:27 IMPRESSION: Bronchial wall thickening may be infectious and/or inflammatory in etiology. Electronically signed by: Marianna Torres MD 01/07/2024 03:31 PM EDT Cervical Spine CT 02/13/24 14:54 IMPRESSION: Multilevel spondylosis likely representing DISH without acute fracture or trauma-related listhesis. A acute to subacute fracture of the syndesmophyte formation at C3 cannot be entire excluded. If patient's symptoms persist recommend non-IV contrast MRI cervical spine. Fleischner guidelines were followed. Electronically signed by: Mayank Irwin MD 02/13/2024 03:34 PM EST RP Head CT 02/13/24 14:54 IMPRESSION: No acute fracture, bony calvarium or acute intracranial hemorrhage. Stable brain. Electronically signed by: Mayank Irwin MD 02/13/2024 03:39 PM EST RP Hip CT 02/13/24 14:54 IMPRESSION: No acute fracture or dislocation right coxofemoral joints/right hip. Electronically signed by: Mayank Irwin MD 02/13/2024 03:48 PM EST RP Hip CT 02/13/24 14:54 IMPRESSION: No acute fracture or dislocation, left coxofemoral joint/hip. Electronically signed by: Mayank Irwin MD 02/13/2024 03:44 PM EST RP Cervical Spine MRI 02/14/24 14:41 IMPRESSION: Within the limitations of the study, 1. No definitive evidence of fracture involving the C3 syndesmophyte. 2. Multilevel cervical spondylosis without significant spinal canal stenosis or cord compression. Mild multilevel neural foraminal narrowing as described above. Electronically signed by: Villa Tello MD 02/14/2024 03:51 PM EST RP Chest X-Ray 02/21/24 07:23 IMPRESSION: Unremarkable examination. Electronically signed by: Josse Gregorio MD 02/21/2024 05:53 PM EST RP Medications Medications Current Medications Acetaminophen (Acetaminophen 325 Mg Tablet) 650 mg PO Q6H PRN PRN Reason: Headache/Pain Mild Scale (1-3) Last Admin: 02/14/24 01:05 Dose: 650 mg Al Hydroxide/Mg Hydroxide (Magnesium Hydrox/Alum Hydrox 30 Ml Oral.Susp) 30 ml PO Q6H PRN PRN Reason: Heartburn/Nausea Clozapine 200 mg/ Clozapine 50 (mg) 250 mg PO DAILY@1930 [facility] Last Admin: 03/11/24 20:21 Dose: 250 mg Docusate Sodium (Docusate Sodium 100 Mg Capsule) 100 mg PO BID [facility] Last Admin: 03/12/24 08:34 Dose: 100 mg Glucose (Glucose Gel 15 Gm Gel..Gram.) 15 gm PO Q15M PRN; Protocol PRN Reason: per Hypoglycemia Standing Ord. Glycopyrrolate (Glycopyrrolate 1 Mg Tablet) 0.5 mg PO BID [facility] Last Admin: 03/12/24 08:34 Dose: 0.5 mg Hydroxyzine HCl (Hydroxyzine Hcl 25 Mg Tablet) 25 mg PO Q6H PRN PRN Reason: Anxiety Last Admin: 03/10/24 19:51 Dose: 25 mg Insulin Human Lispro (Insulin Lispro 100 Unit/Ml 3 Ml Vial) 0 unit SUBCUT DAILY [facility]; Protocol Last Admin: 03/12/24 08:39 Dose: Not Given Magnesium Hydroxide (Milk Of Magnesia 30 Ml Oral.Susp) 30 ml PO DAILY PRN PRN Reason: Constipation Last Admin: 01/11/24 12:48 Dose: 30 ml Naloxone HCl (Naloxone Hcl 0.4 Mg/Ml Vial) 0.04 mg IVPUSH Q5M PRN PRN Reason: Excessive sedation or RR < 8 Naloxone HCl (Naloxone Hcl 0.4 Mg/Ml Vial) 0.04 mg IVPUSH Q5M PRN PRN Reason: Excessive sedation or RR < 8 Omeprazole (Omeprazole 20 Mg Capsule.Dr) 20 mg PO DAILY@0630 [facility] Last Admin: 03/12/24 06:15 Dose: 20 mg Polyethylene Glycol (Polyethylene Glycol 3350 17 Gm Powd.Pack) 17 gm PO DAILY [facility] Last Admin: 03/12/24 08:38 Dose: Not Given Senna (Sennosides 8.6 Mg Tablet) 17.2 mg PO BEDTIME [facility] Last Admin: 03/11/24 20:21 Dose: 17.2 mg Sertraline HCl (Sertraline Hcl 100 Mg Tablet) 100 mg PO DAILY [facility] Last Admin: 03/12/24 08:34 Dose: 100 mg Tamsulosin HCl (Tamsulosin Hcl 0.4 Mg Capsule) 0.4 mg PO BEDTIME [facility] Last Admin: 03/11/24 20:22 Dose: 0.4 mg Trazodone HCl (Trazodone Hcl 50 Mg Tablet) 50 mg PO BEDTIME MRX1 PRN PRN Reason: Insomnia Last Admin: 02/24/24 21:18 Dose: 50 mg Allergies Allergies Allergy/AdvReac Type Severity Reaction Status Date / Time No Known Allergies [NKA] Allergy Unknown NONE Verified 03/01/24 06:35 Assessment & Plan Assessment & Plan (1) Schizophrenia, catatonic: Status: Acute Code(s): F20.2 - Catatonic schizophrenia Plan Patient is a 58-year-old male with a PMH significant for HTN, [id number] type 2 diabetes, BPH, schizoaffective disorder, and depression with catatonia admitted to [facility] with hospitalist consult ECT risk stratification. ECT risk stratification Patient with history of multiple prior ECT without apparent complications No apparent acute medical complaints, vitals and EKG reassuring RCRI class 1 risk, 0 points; no additional cardiac workup indicated Based on patient's history, exam, and EKG, there are no apparent contraindications for the planned procedure Plan 02/24/24 cont plan of care cont ect some improvement noted 02/25/2024 Patient improving continue lorazepam continue ECT encourage out of bed 02/26/24 cont ect lorazepam encourage oob 02/27/24 Improved fx tolerating ect 03/02 remains doing much better; still blunted but good mood and more social, in [place] 03/06 continue tx. 03/08- much improved with catatonia and psychosis. plan for dc most likely next week. 03/09 continue same treatment, much better since ECT was started. 03/10 continue same treatment 03/11- lower glycopyrrolate to 0.5mg po BID due to exacerbation of dyskinesia (perioral involuntary movement, resting tremor on right hand). He has R LE edema- add lilliana stocking, consider consult to hospitalist. psychiatrically stable. no signs of catatonia nor psychosis or delusions. 03/12 continue tx. may need maintenance ECT. plan for DC on 03/15/2024 Reason for continued inpatient stay Substantial Risk for: inability to function Time Spent With Patient Time: Total time managing care of this patient today ____ minutes.
[2024-03-12 20:00] VITALS: BP 112/62; PULSE 73; RESP 17; TEMP 36.1; O2SAT 97
[2024-03-12] MEDS: cloZAPine 200 MG, cloZAPine 50 MG 250 MG PO (20:26)
[2024-03-12] MEDS: Tamsulosin HCL 0.4 MG CAPSULE PO (20:26)
[2024-03-12] MEDS: Sennosides 8.6 MG TABLET 17.2 MG PO (20:26)
[2024-03-13] MEDS: Omeprazole 20 MG CAPSULE.DR PO (06:06)
[2024-03-13 06:41] LABS: Glucose, Whole Blood 120 mg/dL (60-115)
[2024-03-13 08:00] VITALS: BP 127/59; PULSE 77; RESP 16; TEMP 36.3; O2SAT 98
[2024-03-13] MEDS: Sertraline HCL 100 MG TABLET PO (08:32)
[2024-03-13] MEDS: Glycopyrrolate 1 MG TABLET 0.5 MG PO ×2 (08:32→20:06)
[2024-03-13] MEDS: Docusate Sodium 100 MG CAPSULE PO ×2 (08:33→20:05)
[2024-03-13 20:00] VITALS: BP 124/65; PULSE 69; RESP 18; TEMP 36; O2SAT 95
[2024-03-13] MEDS: cloZAPine 200 MG, cloZAPine 50 MG 250 MG PO (20:05)
[2024-03-13] MEDS: Tamsulosin HCL 0.4 MG CAPSULE PO (20:07)
[2024-03-13] MEDS: Sennosides 8.6 MG TABLET 17.2 MG PO (20:07)
[2024-03-14] MEDS: Omeprazole 20 MG CAPSULE.DR PO (06:10)
[2024-03-14 06:53] LABS: Glucose, Whole Blood 110 mg/dL (60-115)
--- NOTE | 2024-03-14 07:55 | P.DS_ITS ---
DS: Providers Provider Date of Service: 03/14/24 Date of admission: 01/06/24 10:55 Date of discharge: 03/14/24 Primary care physician: Jonn Smith MD Consults: 01/22/24 10:34 Consult to Hospitalist Routine Comment: Consulting Provider: [facility] Hospitalists Reason For Exam: ronny 02/09/24 10:58 Consult to Hospitalist Routine Comment: Consulting Provider: [facility] Hospitalists Reason For Exam: ECT clearance 02/15/24 14:02 Consult to Hospitalist Routine Comment: Consulting Provider: [facility] Hospitalists Reason For Exam: medical clearance for ect post fall Discharging clinician: Dahiana Haney DS: Diagnosis Discharge Diagnosis (1) Schizophrenia, catatonic: Status: Acute DS: Medications Discharge Medications Home Medications: Previous Rx's ?Medication ?Instructions ?Recorded clozapine 200 mg tablet 200 mg PO BEDTIME #30 tabs 03/14/24 docusate sodium 100 mg capsule 100 mg PO BID #60 caps 03/14/24 glycopyrrolate 1 mg tablet 0.5 mg (1/2 x 1 mg) PO BID #30 tabs 03/14/24 omeprazole 20 mg capsule,delayed 20 mg PO DAILY@0630 #30 caps 03/14/24 release polyethylene glycol 3350 17 gram 17 g PO DAILY #30 ea 03/14/24 oral powder packet sennosides 8.6 mg tablet (Senna 17.2 mg (2 x 8.6 mg) PO BEDTIME 03/14/24 Lax) #60 tabs sertraline 100 mg tablet 100 mg PO DAILY #30 tabs 03/14/24 tamsulosin 0.4 mg capsule 0.4 mg PO BEDTIME #30 caps 03/14/24 Mental Status Exam Mental Status Exam Narrative: Appearance: wearing casual clothing, good hygiene, in NAD Behavior: cooperative, engaging Psychomotor: less resting and perioral tremors noted. no psychomotor retardation or agitation noted Speech: clear, normal rate/rhythm/volume, spontaneous TP: linear TC: no signs of psychosis, future oriented, looking forward to return home Mood: good Affect: congruent, brighter- slightly constricted at baseline SI: none HI: none VH/AH: none Delusions: none Insight/judgment: improving Memory/cog: alert, oriented x 3. Data Data Completed and Pending Completed studies during hospitalization [Text1]: 03/08/24 03/08/24 03/09/24 06:36 07:33 06:42 Absolute Neuts (auto) 3.4 POC Glucose 108 113 03/10/24 03/11/24 03/12/24 06:30 06:31 06:14 Absolute Neuts (auto) POC Glucose 106 99 117 H 03/13/24 03/14/24 06:33 06:47 Absolute Neuts (auto) POC Glucose 120 H 110 Imaging Diagnostic Imaging Impressions Chest X-Ray 01/07/24 13:27 IMPRESSION: Bronchial wall thickening may be infectious and/or inflammatory in etiology. Electronically signed by: Marianna Torres MD 01/07/2024 03:31 PM EDT RP Cervical Spine CT 02/13/24 14:54 IMPRESSION: Multilevel spondylosis likely representing DISH without acute fracture or trauma-related listhesis. A acute to subacute fracture of the syndesmophyte formation at C3 cannot be entire excluded. If patient's symptoms persist recommend non-IV contrast MRI cervical spine. Fleischner guidelines were followed. Electronically signed by: Mayank Irwin MD 02/13/2024 03:34 PM EST RP Head CT 02/13/24 14:54 IMPRESSION: No acute fracture, bony calvarium or acute intracranial hemorrhage. Stable brain. Electronically signed by: Mayank Irwin MD 02/13/2024 03:39 PM EST RP Hip CT 02/13/24 14:54 IMPRESSION: No acute fracture or dislocation right coxofemoral joints/right hip. Electronically signed by: Mayank Irwin MD 02/13/2024 03:48 PM EST RP Hip CT 02/13/24 14:54 IMPRESSION: No acute fracture or dislocation, left coxofemoral joint/hip. Electronically signed by: Mayank Irwin MD 02/13/2024 03:44 PM EST RP Cervical Spine MRI 02/14/24 14:41 IMPRESSION: Within the limitations of the study, 1. No definitive evidence of fracture involving the C3 syndesmophyte. 2. Multilevel cervical spondylosis without significant spinal canal stenosis or cord compression. Mild multilevel neural foraminal narrowing as described above. Electronically signed by: Villa Tello MD 02/14/2024 03:51 PM EST RP Chest X-Ray 02/21/24 07:23 IMPRESSION: Unremarkable examination. Electronically signed by: Josse Gregorio MD 02/21/2024 05:53 PM EST RP DS: Summary Hospital Course Hospital Course: per CARE team cynthia, pt was BIBA to [facility] ED after [facility] workers made a home visit and found him catatonic. pt was unable to engage with staff from [facility], EMS, ED, or CARE team. 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 per outpt team, pt was able to indicate he was having thoughts of harming himself when assessed in his home. on interview with MD on the unit, pt was unable to answer more than one question. blank stare. section 12b compl eted. Past Psychiatric History: Inpatient: multiple in the past. h/o ECT for catatonia. OP: New psych provider at [facility]- to be determine as Og Leekrystal left. HOSPITAL COURSE Mr. Tenorio was admitted on a CV signed by HCP. He presented with s/s of catatonia including mutism, staring, waxy flexibility. He did not respond to ativan, even IV. He had episodes of excitatory catatonia. Once he started ECT, his improvement was remarkable. He had a total of 6 ECT bitemporal with no side effects. In terms of his medications, lithium was discontinued due to underlying CKD and unclear therapeutic benefit. Sertraline was kept at 100mg po daily hoping antidepressant wont exacerbate psychosis. He has hypersalivation- tried initially on low dose clonidine with some improvement but later switched to g lycopyrralate which seemed to help more the drooling but exacerbated underlying dyskinesia- therefore dose was kept at 0.5mg po BID. Continue monitor hypersalivation and dyskinesia. Dyskinesia seemed to improve with adjustment of glycopyrralate. He was kept on bowel regiment (senakot and miralax- recommended to avoid bulk agents such metamusil) to prevent constipation with clozaril- he does have hx of obstruction. He did not have any GI issues. He was sleeping and eating well. This is the most stable we have seen him in the past almost 2 years. Recommendation to monitor worsening symptoms of catatonia or signs of psychosis as it does appear that most effective tx for him is ECT. Recommend to judiciously consider ECT OP at first signs of decompensation. Status at Discharge Cognitive/behavioral status at discharge: Pt with brighter, non labile affect. No SI/HI. No psychosis or delusions. No signs of catatonia. Sleeping and eating well. Functional status at discharge: independent ambulation Overall status at discharge: patient is back to baseline Time Spent with Patient Time attestation: Total time managing care of this patient today _35___ minutes. Time spent: Greater than 30 minutes Discharge Plan Discharge Anticipated Discharge Date/Time: 03/14/24 07:46 Patient Disposition: Home, Self-Care Discharge Diagnosis: schizoaffective disorder Referrals: [facility] ACCS Outreach [Other] - 03/14/24 (Your outreach services with [facility] ACCS team will resume at time of discharge. ) Wanda [facility] [employer] [facility] [Other] - 04/03/24 2:45 pm (YOur next appointmnets for therapy with Wanda are as follows 04/03/24 at 2:45pm and 04/17/24 at 2pm. ) Kain Hernandes [employer] Escrow Assistant [Other] - 1 Week (Your [employer] histology manager will contact you following discharge. ) Psychiatrist: Jolly Adams ([facility]) [Other] - 04/04/24 9:20 am (Appointment is in person at the office fopr 04/04/24 at 9:20am. ) [facility] [Other] - 03/14/24 (Your new VNA will begin 03/14/24 and provide twice daily visits to you. Please contact your [facility] nurse Sandra Wiley with questions if needed office: [phone]) Jonn Smith MD [Primary Care Provider] - 03/14/24 3:30 pm Discharge Medications: New glycopyrrolate 1 mg Tablet 0.5 mg PO BID Qty: 30 0RF tamsulosin 0.4 mg Capsule 0.4 mg PO BEDTIME Qty: 30 0RF clozapine 200 mg tablet 200 mg PO BEDTIME Qty: 30 0RF sennosides [Senna Lax] 8.6 mg Tablet 17.2 mg PO BEDTIME Qty: 60 0RF polyethylene glycol 3350 17 gram Powder In Packet 17 g PO DAILY Qty: 30 0RF sertraline 100 mg Tablet 100 mg PO DAILY Qty: 30 0RF docusate sodium 100 mg Capsule 100 mg PO BID Qty: 60 0RF omeprazole 20 mg Capsule,Delayed Release(Dr/Ec) 20 mg PO DAILY@0630 Qty: 30 0RF Discontinued docusate sodium 100 mg capsule 200 mg PO BID Qty: 120 3RF (DME) lancets [OneTouch Delica Plus Lancet] 30 gauge [facility] See Rx Instructions .Route Qty: 200 0RF Rx Instructions: As directed daily (DME) OneTouch Ultra Test Strip See Rx Instructions .Route Qty: 100 0RF Rx Instructions: As directed daily (DME) blood-glucose meter [DocracyTouch Ultra2 Meter] [facility] See Rx Instructions .Route Qty: 1 0RF Rx Instructions: As directed metformin 500 mg tablet extended release 24 hr 500 mg PO DAILY Qty: 90 1RF clozapine 100 mg Tablet 300 mg PO BEDTIME Qty: 21 0RF sertraline 100 mg tablet 100 mg PO BID Qty: 60 0RF lorazepam 1 mg Tablet 1 mg PO TID Qty: 90 0RF lithium carbonate 300 mg capsule 300 mg PO BID omeprazole 20 mg capsule,delayed release(DR/EC) 20 mg PO DAILY@0630 tamsulosin 0.4 mg capsule 0.4 mg PO BEDTIME aripiprazole 5 mg tablet 5 mg PO BEDTIME sennosides [senna] 8.6 mg Tablet 17.2 mg PO BEDTIME polyethylene glycol 3350 [Miralax] 17 gram/dose Powder 17 g PO DAILY Discharge Orders: Discharge Order (Routine); Ordered 03/14/24 Ordered By: Dahiana Haney Diet: Regular diet Activity on Discharge: As tolerated Stand Alone Forms: Patient Portal Discharge page Print Language: Greenlandic Care Plan Goals: maintain mood No SI/HI No psychosis No signs of catatonia Health Concerns: Follow up with PCP Plan of Treatment: 1. Take medications as prescribed 2. Go to nearest ED or call 911 in event of emergency Assessment: Pt with brighter affect. No SI/HI. No overt psychosis or delusions. No signs of catatonia, much more aware of surroundings and engaging in meaningful ways with treatment team. Sleeping and eating well. No aggression towards self or others.
[2024-03-14] MEDS: Docusate Sodium 100 MG CAPSULE PO (08:07)
[2024-03-14] MEDS: Glycopyrrolate 1 MG TABLET 0.5 MG PO (08:07)
[2024-03-14] MEDS: Sertraline HCL 100 MG TABLET PO (08:07)
--- NOTE | 2024-03-14 08:10 | HO.PSYCHPN ---
Subjective Subjective Date of Service: 03/13/24 Reason For Visit: catatonia Subjective Notes: Conditional Voluntary Interim History: Pt slept through the night. He is much more alert, aware of surroundings. No s/s of catatonia. No overt signs of psychosis or delusions less dyskenisia with lower dose of glycopyrrolate He denies constipation and reports daily BM. VS stable. Review of Systems Review of Systems Negative except for that which is stated in the HPI, though ROS admittedly difficult to obtain as patient has history of catatonia and with marked delay in response, occasionally not answering questions Yes Unobtainable due to mental status and Other (patient not answering ROS secondary to catatonic state) Mental Status Exam Mental Status Exam Narrative: Appearance: wearing casual clothing, good hygiene, in NAD Behavior: cooperative, engaging Psychomotor: less resting and perioral tremors noted. no psychomotor retardation or agitation noted Speech: clear, normal rate/rhythm/volume, spontaneous TP: linear TC: no signs of psychosis, future oriented, looking forward to return home Mood: good Affect: congruent, brighter- slightly constricted at baseline SI: none HI: none VH/AH: none Delusions: none Insight/judgment: improving Memory/cog: alert, oriented x 3. Diagnostics Vital Signs (24Hr): Vital Signs - 24 hr 03/13/24 20:00 Temperature 96.8 F Pulse Rate 69 Respiratory Rate 18 Blood Pressure 124/65 Pulse Oximetry 95 Oxygen Delivery Method Room Air BMI result Body Mass Index 31.0 Labs 02/14/24 14:36 02/25/24 08:12 Labs: Laboratory Results - last 48 hr 03/13/24 03/14/24 06:33 06:47 POC Glucose 120 H 110 Imaging Radiology Impressions: ITS Impressions Chest X-Ray 01/07/24 13:27 IMPRESSION: Bronchial wall thickening may be infectious and/or inflammatory in etiology. Electronically signed by: Marianna Torres MD 01/07/2024 03:31 PM EDT Cervical Spine CT 02/13/24 14:54 IMPRESSION: Multilevel spondylosis likely representing DISH without acute fracture or trauma-related listhesis. A acute to subacute fracture of the syndesmophyte formation at C3 cannot be entire excluded. If patient's symptoms persist recommend non-IV contrast MRI cervical spine. Fleischner guidelines were followed. Electronically signed by: Mayank Irwin MD 02/13/2024 03:34 PM EST RP Head CT 02/13/24 14:54 IMPRESSION: No acute fracture, bony calvarium or acute intracranial hemorrhage. Stable brain. Electronically signed by: Mayank Irwin MD 02/13/2024 03:39 PM EST RP Hip CT 02/13/24 14:54 IMPRESSION: No acute fracture or dislocation right coxofemoral joints/right hip. Electronically signed by: Mayank Irwin MD 02/13/2024 03:48 PM EST RP Hip CT 02/13/24 14:54 IMPRESSION: No acute fracture or dislocation, left coxofemoral joint/hip. Electronically signed by: Mayank Irwin MD 02/13/2024 03:44 PM EST RP Cervical Spine MRI 02/14/24 14:41 IMPRESSION: Within the limitations of the study, 1. No definitive evidence of fracture involving the C3 syndesmophyte. 2. Multilevel cervical spondylosis without significant spinal canal stenosis or cord compression. Mild multilevel neural foraminal narrowing as described above. Electronically signed by: Villa Tello MD 02/14/2024 03:51 PM EST RP Chest X-Ray 02/21/24 07:23 IMPRESSION: Unremarkable examination. Electronically signed by: Josse Gregorio MD 02/21/2024 05:53 PM EST RP Medications Medications Current Medications Acetaminophen (Acetaminophen 325 Mg Tablet) 650 mg PO Q6H PRN PRN Reason: Headache/Pain Mild Scale (1-3) Last Admin: 02/14/24 01:05 Dose: 650 mg Al Hydroxide/Mg Hydroxide (Magnesium Hydrox/Alum Hydrox 30 Ml Oral.Susp) 30 ml PO Q6H PRN PRN Reason: Heartburn/Nausea Clozapine 200 mg/ Clozapine 50 (mg) 250 mg PO DAILY@1930 [facility] Last Admin: 03/13/24 20:05 Dose: 250 mg Docusate Sodium (Docusate Sodium 100 Mg Capsule) 100 mg PO BID [facility] Last Admin: 03/14/24 08:07 Dose: 100 mg Glucose (Glucose Gel 15 Gm Gel..Gram.) 15 gm PO Q15M PRN; Protocol PRN Reason: per Hypoglycemia Standing Ord. Glycopyrrolate (Glycopyrrolate 1 Mg Tablet) 0.5 mg PO BID [facility] Last Admin: 03/14/24 08:07 Dose: 0.5 mg Hydroxyzine HCl (Hydroxyzine Hcl 25 Mg Tablet) 25 mg PO Q6H PRN PRN Reason: Anxiety Last Admin: 03/10/24 19:51 Dose: 25 mg Insulin Human Lispro (Insulin Lispro 100 Unit/Ml 3 Ml Vial) 0 unit SUBCUT DAILY [facility]; Protocol Last Admin: 03/14/24 08:07 Dose: Not Given Magnesium Hydroxide (Milk Of Magnesia 30 Ml Oral.Susp) 30 ml PO DAILY PRN PRN Reason: Constipation Last Admin: 01/11/24 12:48 Dose: 30 ml Naloxone HCl (Naloxone Hcl 0.4 Mg/Ml Vial) 0.04 mg IVPUSH Q5M PRN PRN Reason: Excessive sedation or RR < 8 Naloxone HCl (Naloxone Hcl 0.4 Mg/Ml Vial) 0.04 mg IVPUSH Q5M PRN PRN Reason: Excessive sedation or RR < 8 Omeprazole (Omeprazole 20 Mg Capsule.Dr) 20 mg PO DAILY@0630 [facility] Last Admin: 03/14/24 06:10 Dose: 20 mg Polyethylene Glycol (Polyethylene Glycol 3350 17 Gm Powd.Pack) 17 gm PO DAILY [facility] Last Admin: 03/14/24 08:08 Dose: Not Given Senna (Sennosides 8.6 Mg Tablet) 17.2 mg PO BEDTIME [facility] Last Admin: 03/13/24 20:07 Dose: 17.2 mg Sertraline HCl (Sertraline Hcl 100 Mg Tablet) 100 mg PO DAILY [facility] Last Admin: 03/14/24 08:07 Dose: 100 mg Tamsulosin HCl (Tamsulosin Hcl 0.4 Mg Capsule) 0.4 mg PO BEDTIME [facility] Last Admin: 03/13/24 20:07 Dose: 0.4 mg Trazodone HCl (Trazodone Hcl 50 Mg Tablet) 50 mg PO BEDTIME MRX1 PRN PRN Reason: Insomnia Last Admin: 02/24/24 21:18 Dose: 50 mg Allergies Allergies Allergy/AdvReac Type Severity Reaction Status Date / Time No Known Allergies [NKA] Allergy Unknown NONE Verified 03/01/24 06:35 Assessment & Plan Assessment & Plan (1) Schizophrenia, catatonic: Status: Acute Code(s): F20.2 - Catatonic schizophrenia Plan Patient is a 58-year-old male with a PMH significant for HTN, [id number] type 2 diabetes, BPH, schizoaffective disorder, and depression with catatonia admitted to [facility] with hospitalist consult ECT risk stratification. ECT risk stratification Patient with history of multiple prior ECT without apparent complications No apparent acute medical complaints, vitals and EKG reassuring RCRI class 1 risk, 0 points; no additional cardiac workup indicated Based on patient's history, exam, and EKG, there are no apparent contraindications for the planned procedure Plan 02/24/24 cont plan of care cont ect some improvement noted 02/25/2024 Patient improving continue lorazepam continue ECT encourage out of bed 02/26/24 cont ect lorazepam encourage oob 02/27/24 Improved fx tolerating ect 03/02 remains doing much better; still blunted but good mood and more social, in [place] 03/06 continue tx. 03/08- much improved with catatonia and psychosis. plan for dc most likely next week. 03/09 continue same treatment, much better since ECT was started. 03/10 continue same treatment 03/11- lower glycopyrrolate to 0.5mg po BID due to exacerbation of dyskinesia (perioral involuntary movement, resting tremor on right hand). He has R LE edema- add lilliana stocking, consider consult to hospitalist. psychiatrically stable. no signs of catatonia nor psychosis or delusions. 03/12 continue tx. may need maintenance ECT. plan for DC on 03/15/202403/13 plan to dc tomorrow 03/14 Reason for continued inpatient stay Substantial Risk for: inability to function Time Spent With Patient Time: Total time managing care of this patient today ____ minutes.
--- NOTE | 2024-03-14 11:08 | PC.NURSE ---
Pt. A & O X 4. Reports readiness for discharge. Denies anxiety, depression, SI, HI, and perceptual disturbances. Discharge instructions and medications reviewed with patient, who verbalized understanding. Pt. ambulated off unit at 10:56 accompanied by this RN H worker.
== END 2024-03-14 10:56 | disposition home or self-care (01) | DRG 885 ==
LOC: HO.ED 18:06 → HO.PGERI 01-06 11:01
PROVIDERS: Physician Assistant; Physician Assistant Medical; Psychiatry & Neurology Psychiatry; Social Worker; Admitting Provider Psychiatry & Neurology Psychiatry; Emergency Provider Emergency Medicine; PCP Internal Medicine; Visit Provider Psychiatry & Neurology Psychiatry
PROC: GZB4ZZZ Other Electroconvulsive Therapy (ICD-10-PCS; CPT 90870; principal; 2024-02-21 08:30)
DX: F20.2 Catatonic schizophrenia (principal); W19.XXXA Unspecified fall, initial encounter; N40.0 Benign prostatic hyperplasia without lower urinary tract symptoms; I10 Essential (primary) hypertension; E11.65 Type 2 diabetes mellitus with hyperglycemia; G47.30 Sleep apnea, unspecified; Z23 Encounter for immunization; Z20.822 Contact with and (suspected) exposure to COVID-19; Z79.899 Other long term (current) drug therapy
CPT/HCPCS: 36415; 70450; 71045; 71046; 72125; 72141; 73700; 80048; 80053; 80143; 80159; 80178; 80179; 80307; 82140; 82565; 82947; 83036; 84443; 85025; 85048; 87635; 90656; 90870; 92526; 92610; 93005; 99285; J0330; J0360; J1596; J1805; J1920; J2060; J2359; J2405; J2704; J7120; S9485

== ENCOUNTER → 2024-01-05 11:34 | Outpatient (BNV) | payer MEDICARE, MEDICAID, SELFPAY | PROVIDERS: Emergency Provider Emergency Medicine; PCP Internal Medicine; Visit Provider Internal Medicine Cardiovascular Disease | DX: R94.31 Abnormal electrocardiogram [ECG] [EKG] (principal) | CPT/HCPCS: 93010 ==

== ENCOUNTER 2024-01-06 10:55 | Outpatient (BNV) | payer MEDICARE, MEDICAID, SELFPAY | END 2024-02-08 15:53 | PROVIDERS: Admitting Provider Psychiatry & Neurology Psychiatry; Emergency Provider Emergency Medicine; PCP Internal Medicine; Visit Provider Internal Medicine Cardiovascular Disease | DX: R94.31 Abnormal electrocardiogram [ECG] [EKG] (principal) | CPT/HCPCS: 93010 ==

== ENCOUNTER 2024-01-06 10:55 | Outpatient (BNV) | payer MEDICARE, MEDICAID, SELFPAY | END 2024-02-13 14:54 | PROVIDERS: Admitting Provider Psychiatry & Neurology Psychiatry; Emergency Provider Emergency Medicine; PCP Internal Medicine; Visit Provider Radiology Diagnostic Radiology | DX: Z04.89 Encounter for examination and observation for other specified reasons (principal) | CPT/HCPCS: 70450; 72125; 73700 ==

== ENCOUNTER 2024-01-06 10:55 | Outpatient (BNV) | payer MEDICARE, MEDICAID, SELFPAY | END 2024-02-13 14:39 | PROVIDERS: Admitting Provider Psychiatry & Neurology Psychiatry; Emergency Provider Emergency Medicine; PCP Internal Medicine; Visit Provider Internal Medicine Cardiovascular Disease | DX: R94.31 Abnormal electrocardiogram [ECG] [EKG] (principal) | CPT/HCPCS: 93010 ==

== ENCOUNTER → 2024-01-06 10:55 | Outpatient (BNV) | payer MEDICARE, MEDICAID, SELFPAY | PROVIDERS: Admitting Provider Psychiatry & Neurology Psychiatry; Emergency Provider Emergency Medicine; PCP Internal Medicine; Visit Provider Physician Assistant | DX: S09.90XA Unspecified injury of head, initial encounter (principal); W19.XXXA Unspecified fall, initial encounter; Y92.232 Corridor of hospital as the place of occurrence of the external cause | CPT/HCPCS: 99231; 99232; 99499 ==

== ENCOUNTER → 2024-01-06 10:55 | Outpatient (BNV) | payer MEDICARE, MEDICAID, SELFPAY | PROVIDERS: Admitting Provider Psychiatry & Neurology Psychiatry; Emergency Provider Emergency Medicine; PCP Internal Medicine; Visit Provider Psychiatry & Neurology Psychiatry | DX: F20.2 Catatonic schizophrenia (principal) | CPT/HCPCS: 90792; 90870; 99231; 99232 ==

== ENCOUNTER → 2024-01-06 10:55 | Outpatient (BNV) | payer MEDICARE, MEDICAID, SELFPAY | PROVIDERS: Admitting Provider Psychiatry & Neurology Psychiatry; Emergency Provider Emergency Medicine; PCP Internal Medicine; Visit Provider Psychiatry & Neurology Psychiatry | DX: F20.2 Catatonic schizophrenia (principal) | CPT/HCPCS: 90870; 99231; 99232 ==

== ENCOUNTER 2024-03-14 15:22 | Outpatient (AMB) | payer MEDICARE, MEDICAID, SELFPAY ==
--- OUTSIDE RECORDS SUMMARY | 2024-03-14 15:25 | XMS_ITS ---
Author Organization [facility] Behzad jonah Mike Address [address] [facility] [place] [address] Care Team Providers Care Forest Resources Professor Name Role Phone Jonn Smith Primary Care Provider Deanna Baron Unavailable [phone] Allergies No Known Allergies REASON FOR VISIT At Risk Footcare Medications Medication SIG (Take, Route, Frequency, Duration) Notes Start Date End Date Status metFORMIN HCl 500 MG 1 tablet with a anat l Orally Once a day for 30 day(s) Active Tamsulosin HCl Activ e LORazepam 2 MG 1 tablet at bedtime as needed Orally Once a day Active Zoloft 100 mg Oral Active Night Splint AFO - L1930 as directed Active Ciclopirox Olamine 0.77 % 1 application to affected area Externally Twice a day to effected areas on feet for 30 days Active Flomax Active Abilify Active clonazePAM Active Star Carbonate 600 MG 1 capsule at be dtime Orally Once a day for 30 day(s) Active Physical Therapy . . . 2-3x/week for 3- 4 weeks Active Custom Orthotics as directed A ctive Social History Tobacco Use: Social History Observation Description Date Details (start date - stop date) Never Smoker NA - NA Tobacco Use/Smoking Question Answer Notes Are you a: nonsmoker Additional Findings: Tobacco Non-User Current no n-smoker Alcohol Screen Question Answer Notes Did you have a drink containing alcohol in the p ast year? No Points 0 Interpretation Negative Tobacco use other than smoking: Question Answer Notes Are you an other tobacco user? No Vital Signs Height 5ft 10in in 12/26/2023 Weight 227 lbs 12/26/2023 BMI 32.57 kg/m2 12/26/2023 Blood pressure systolic 120 mm Hg 12/26/19 24 Blood pressure diastolic 80 mm Hg 024 Procedures Procedure Date Ordered Date Performed Result Body Sit e 65640-IVAXLYI NAIL, 6 OR MORE 12/26/2023 N/A Encounters Encounter Location Date Provider Diagnosis [facility] [address] [address] 12/26/2023 Deanna Baron Tinea unguium B35.1 and Type 2 diabetes mellitus with diabetic polyneuropathy E11.42 Assessments Encounter Date Diagnosis (ICD Code) Assessment Notes Treatment Notes Treatment Clinical Notes Section Notes 12/26/2023 Tinea unguium (ICD-10 - B35.1) 12/26/2023 Type 2 diabetes mellitus with diabetic polyneuropathy (ICD-10 - E11.42) Plan Of Treatment Pending Test Test Name Order Date 78079-OVWGJBJ NAIL, 6 OR MORE 12/26/2023 Next Appt Details Follow Up: prn, Reason: Provider Name:Deanna Jeter erlin, 03/28/2024 01:30:00 PM, [address] [place] [address], [phone], Procedure Notes * Category Sub-Category Detail Notes Debride Nail 6-10 Nail debridement Performance o f this nail treatment by a nonprofessional would put this patients foot and overall health at risk. Therefore, nail debridement was performed extensively to reduce/remove overall nail length, girth, thickness, subungual debris, and necrotic tissue, by manual and/or electrical means through the use of a nail nipper and/or dremel-type slab grinder, to a more viable healthy nail plate or bed tissue 6-10. Silver nitrate used for any petechial bleeding as necessary. Definitive antifungal treatment options have been reviewed and discussed with the patient. The patient chooses, no pharmaceutical tx - 77708 Progress Notes * Benjamin ALVAREZ PDOB:1965 (58 yo M)Acc No.[id number]:12/26/2023 Progress Note Patient:?Benjamin Alvarez P Provider:?Deanna Baron DPM :1965???Age:58 Y???Sex:Male Wilver e:12/26/2023 Address:[address] [place] [address] [address], [place], [place] Pcp:Jonn Smith Subjective: * Chief Complaints: * ???At Risk Footcare * HPI: ???At Risk footcare:?Pt States Last PCP Visit:?Date?03/27/2023 States has an appt with PCP soon - tomorrow- 12/26 * ROS:?General/Constitutional:?Nausea?denies, denies.?Vomiting?denies, denies.?Hunger Thirst?admits, admits.?Loss appetite?denies, denies.?Chills?denies, denies.?Fatigue?denies, denies.?Fever?denies, denies.?Night Sweats denies, denies.?Unexplained weight loss?denies, denies.?Unexplained weight gain?denies, denies.?HEENTM:?Dentures?denies, denies.?Dizziness?denies, denies.?Glasses/contacts?denies, denies.?Retinopathy?denies, denies.?Blurred/double vision?denies, denies.?TMJ?denies, denies.?Discharge/drainage?denies, denies.?Implants?denies, denies.?Sore throat?denies, denies.?Dental implants?denies, denies.?Hard of hearing ?denies, denies.?Difficulty chewing/swallowing/speaking?denies, denies.?Nose bleeds?denies, denies.?Sore mouth?denies, denies.?Respiratory:?On Oxygen?denies, denies.?Pneumonia/pleurisy?denies, denies.?Bronchitis?denies, denies.?Emphysema?denies, denies.?Coughing?denies, denies.?Cough blood?denies, denies.?Shortness of breath?denies, denies.?Wheezing?denies, denies.?Cardiovascular:?Pacemaker?denies, denies.?MVP?denies, denies.?WPW?denies, denies.?CHF?denies, denies.?Heart attack?denies, denies.?Septal defect?denies, denies.?Rapid beat?denies, denies.?Chest pain ?denies, denies.?Atrial Fib.?denies, denies.?Murmur/Palpitations?denies, denies.?Gastrointestinal:?Hemorrhoids?denies, denies.?Stomach/Abdominal pain?denies, denies.?Dark blood stool?denies, denies.?Irritable bowel ?denies, denies.?Constipation?admits, admits.?Diarrhea?denies, denies.?Hematology:?Swelling?denies, denies.?Clots?denies, denies.?Varicose Veins?denies, denies.?Bruising?denies, denies.?Bleeding problem?denies, denies.?Genitourinary:?Blood urine?denies, denies.?Frequent/Painfu/urination/bladder control?denies, denies.?Kidney stones?denies, denies.?Infection (UTI)?denies, denies.?Nephropathy?denies, denies.?sex trans dis (STD)?denies, denies.?Prostate?denies, denies.?Musculoskeletal:?Hammertoes?denies, denies.?Bunions?denies, denies.?Back Pain?denies, denies.?Muscle Cramps/ Resting?denies, denies.?Muscle cramps / walking?denies, denies.?Generalized aches and pains?denies, denies.?Weakness?denies, denies.?Integ.:?Solorzano?denies, denies.?Scars?denies, denies.?Corns/calluses?denies, denies.?Ingrown nails?admits.?Painful nails?denies, denies.?Open Sores?denies, denies.?Rashes?denies, denies.?Neurologic:?Difficulty sleeping?denies, denies.?Brain disorder?denies, denies.?Numbness?admits.?Balance trouble?denies, denies.?Confusion?denies, denies.?Fainting/blackouts?denies, denies.?Tingling?denies, denies.?Tremors?denies, denies.? * Medical History:? * Surgical History:?colonoscop y 06/19/21 * Hospitalization/Major Diagno stic Procedure:?RTU-Hmpuuqjyfo-KD visit 12/2018 * Family History:?Mother: alethea wolff?Father: alive.? * Social History:?Tobacco Use:?Tobacco Use/Smoking?Are you a:?nonsmoker ?Additional Findings: Tobacco Non-User?Current non-smoker ?Tobacco use other than smoking?Are you an other tobacco user??No ???Drugs/Alcohol:?Drugs?Have you used drugs other than those for medical reasons in the past 12 months??No ?Alcohol Screen?Did you have a drink containing alcohol in the past year??No ?Points?0 ?Interpretation?Negative ???Miscellaneous:?Caffeine: yes, 1-2 cups per day. ?no Children, none. ?Exercise: yes, walking. ?Marital status: single. 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 * Medications:?TakingAbilify c lonazePAM Ciclopirox Olamine 0.77 % Cream 1 application to affected area Externally Twice a day to effected areas on feetFlomax Star Carbonate 600 MG Capsule 1 capsule at bedtime Orally Once a dayLORazepam 2 MG Tablet 1 tablet at bedtime as needed Orally Once a daymetFORMIN HCl 500 MG Tablet 1 tablet with a meal Orally Once a dayTamsulosin HCl Zoloft 100 mg Oral Night Splint AFO - L1930 as directed Physical Therapy . . . . 2-3x/weekCustom Orthotics as directed Medication List reviewed and reconciled with the patientTaking Abilify Taking clonazePAM Taking Ciclopirox Olamine 0.77 % Cream 1 application to affected area Externally Twice a day to effected areas on feetTaking Flomax Taking Star Carbonate 600 MG Capsule 1 capsule at bedtime Orally Once a dayTaking LORazepam 2 MG Tablet 1 tablet at bedtime as needed Orally Once a dayTaking metFORMIN HCl 500 MG Tablet 1 tablet with a meal Orally Once a dayTaking Tamsulosin HCl Taking Zoloft 100 mg Oral Taking Night Splint AFO - L1930 as directed Taking Physical Therapy . . . . 2-3x/weekTaking Custom Orthotics as directed Medication List reviewed and reconciled with the patient * Allergies:?N.K.D.A.yes[Aller gies Verified] Objective: * Vitals:?Ht: 5ft 10in, Wt:227 , BMI:32.57, Shoe size: 10.5, BP:120/80 mm Hg, BS: 115, Ht-cm: 177.8 cm, Wt-k.97 kg. * Examination: ???Dermatologic: ?SKIN FINDINGS:?Skin exam reveals normal color, texture, elasticity, and turgor. There are no masses, nor excrescences. The interspaces are clear, B/L.?Nails: ?NAILS are:?Elongated, overgrown, dystrophic, lytic, greater than 3mm thick, discolored and friable with crumbly malodorous subungual debris, with dull to no pain on palpation due to neuropathy, 2-5 B/L.?Neurological: ?SENSORY:?Neurological exam demonstrates reduced sharp/dull pin prick discrimination reduced light touch sensation reduced vibration sensation reduced proprioception sensation in a stocking fashion 5.07 monofilament test performed at plantar aspects of 5 varied sites per foot shows sensation plantar aspects absent at Forefoot B/L.?Vascular: ?DP PULSES(B):?2/4 , B/L.?PT PULSES(B):?2/4 , B/L.?CAPILLARY FILL TIME:?3 secs. per digit, B/L.?TROPHIC CONDITION-TEXTURE/ELASTICITY/TURGOR/HAIR GROWTH(B):?normal, B/L.?TEMPERTURE GRADIENT(C):?warm to cool, proximal to distal, B/L.?EDEMA(C):?absent, B/L.?Orthopedic: ?MUSCLE STRENGTH:?5/5 all groups in a symmetrical fashion B/L.?General Examination: ?GENERAL APPEARANCE:?pleasant, alert, well nourished, well developed, well hydrated, with good attention to hygiene/body habitus, and in no acute distress.?ORIENTED:?person,place, and time.? Assessment: * Assessment: 1.?Tinea unguium - B35.1 (Pr imary)?2.?Type 2 diabetes mellitus with diabetic polyneuropathy - E11.42? Plan: * Treatment: * Procedures:?Debride Nail 6-10:?Nail debridement?Performance of this nail treatment by a nonprofessional would put this patients foot and overall health at risk. Therefore, nail debridement was performed extensively to reduce/remove overall nail length, girth, thickness, subungual debris, and necrotic tissue, by manual and/or electrical means through the use of a nail nipper and/or dremel-type slab grinder, to a more viable healthy nail plate or bed tissue 6-10. Silver nitrate used for any petechial bleeding as necessary. Definitive antifungal treatment options have been reviewed and discussed with the patient. The patient chooses, no pharmaceutical tx - 01430.? * Procedure Codes:?83423 DEBRI DE NAIL, 6 OR MORE, Modifiers: XS * Follow Up:?prn * Images: * Sign off status: Completed true * Provider:?Deanna Baron DPM Date:?1 Generated for Makenziei christen/Mary/eTransmitting on:?03/14/2024 03:25 PM EST History and Physical Notes * HPI (History of Present Illness) Category Sub-Category Detail Notes Category Not es At Risk footcare Pt States Last PCP Visit: Date: 03/27/2023 States has an appt with PCP soon - tomorrow- 12/26 Examination Category Sub-Category Detail Notes Category Not es Neurological SENSORY: Neurological exa m demonstrates reduced sharp/dull pin prick discrimination reduced light touch sensation reduced vibration sensation reduced proprioception sensation in a stocking fashion 5.07 monofilament test performed at plantar aspects of 5 varied sites per foot shows sensation plantar aspects absent at Forefoot B/L Dermatologic SKIN FINDINGS: Skin exam reveal s normal color, texture, elasticity, and turgor. There are no masses, nor excrescences. The interspaces are clear, B/L Orthopedic MUSCLE STRENGTH: 5/5 all groups in a symmetrical fashion B/L General Examination GENERAL APPEARANCE: pleasant , alert, well nourished, well developed, well hydrated, with good attention to hygiene/body habitus, and in no acute distress ORIENTED: person,place, and ti me Vascular DP PULSES (B): 2/4 , B/L PT PULSES (B): 2/4 , B/L CAPILLARY FILL TIME: 3 secs. per digit, B/L TEMPERTURE GRADIENT (C): warm to cool, p roximal to distal, B/L TROPHIC CONDITION-TEXTURE/ELASTICITY/TURGOR/HAIR GROWTH (B): normal, B/L EDEMA (C): absent, B/L Nails NAILS are: Elongated, overg rown, dystrophic, lytic, greater than 3mm thick, discolored and friable with crumbly malodorous subungual debris, with dull to no pain on palpation due to neuropathy, 2-5 B/L
--- NOTE | 2024-03-14 15:26 | A.OFFPC_ITS ---
Vital Signs 03/14/24 15:27 Height 5 ft 10 in Weight 222 lb BMI 31.9 BP 150/80 H Blood Pressure Location Lt brachial Position Sitting Pulse 92 Pulse Source Pulse Oximeter Pulse Oximetry (%) 98 Oxygen Delivery Method Room Air Intake Visit Reasons: Psy - [facility] Allergies No Known Allergies [NKA] Allergy (Unknown, Verified 03/01/24 06:35) NONE Tobacco use date assessed: 07/20/23 Dental Screening Dental Screen Date: 04/13/23 [facility] Medical History (Updated 03/14/24 @ 16:33 by Jonn Smith MD) Tardive dyskinesia Schizophrenia, catatonic Mild sleep apnea Nocturnal hypoxia Routine medical exam Joint inflammation of right hand and wrist Status post fall Adult general medical exam Screening for colon cancer Screening for prostate cancer Cough BPH (benign prostatic hyperplasia) Essential (primary) hypertension Diabetes mellitus Surgical History History of colonoscopy (~06/15/21) History of tooth extraction History of root canal procedure Family History Mother Cancer Father Kidney agenesis Social History Household Members: None Housing: Apartment Are you a primary pet care associate to a significant other at home: No Do you presently have visiting nurse or other home services: No Unable to assess alcohol history related to: Unable to respond Alcohol intake: former Comment: 1:1 Patient Tobacco Use Status: Never used Tobacco e-Cigarette/Vaping Use: Never Used Second Hand Smoke Exposure: No service: No Current occupational status: employed Sexual orientation: Straight/Heterosexual Cognitive needs: No Hearing needs: No Vision needs: No Questionnaire Thrive Questionnaire Date Thrive assessed: 01/09/24 Are you currently unemployed and looking for a job?: No JONAH-7 AMB Questionnaire JONAH-7 Date JONAH - 7 assessed: 04/13/23 Source: Developed by Drs. Jacob Bates, Farrah Scott, Jose Martin Powell and colleagues, with an educational brigid from [employer]. Physical exam (Primary Care) Vital Signs: Last Vital Signs Pulse 92 03/14/24 15:27 BP 150/80 H 03/14/24 15:27 Pulse Ox 98 03/14/24 15:27 Oxygen Delivery Method Room Air 03/14/24 15:27 BMI result Body Mass Index 31.9 Tobacco/Smoking Status: Tobacco use Status Tobacco use date assessed 07/20/23 03/14/24 15:26 Patient Tobacco Use Status Never used Tobacco 03/14/24 15:26 e-Cigarette/Vaping Use Never Used 03/14/24 15:26 Thrive Assessment: Date of Thrive Assessment Date Thrive assessed 01/09/24 03/14/24 15:26 Office Procedures Flu Questionnaire Does the patient have a severe egg allergy?: No Does the patient have severe life threatening allergies?: No Does the patient have a fever or illness today?: No Has the patient ever had Guillain-Freistatt Syndrome?: No Has the patient ever had any past reaction to a flu shot?: No Immunizations Fluarix Triv [id number] (PF) 45 mcg (15 mcg x 3)/0.5 mL IM syringe Performing Provider: Jonn Smith MD [facility] Administered by: RICHI Orr on 03/14/24 15:36 Dose Route Admin Location Dispensed Lot Number Expiration Date [facility] Geothermal Operations Manager 0.5 mL IM Right Deltoid 0.5 mL [id number] 09/23/24 [id number] [employer] VIS Given Date VIS Provided VIS Publication Date 03/14/24 Single Vaccine 20 Eligibility Eligibility Date Funding Source Not [facility] Eligible 03/14/24 Private Coding Level of Care Code Est Pt Level 4 (62233) Complex EM visit Add On G2211 Diagnoses Schizoaffective disorder F25.9 Tardive dyskinesia G24.01 Assessment & Plan Assessment & Plan (1) Schizoaffective disorder: Code(s): F25.9 - Schizoaffective disorder, unspecified Category: Medical Plan: Hospital notes reviewed. Patient receiving ECT. (2) Tardive dyskinesia: Code(s): G24.01 - Drug induced subacute dyskinesia Category: Medical Plan: Clonazepam has been added to the regimen. Orders: Orders Influenza [id number] Immunization Today Z23 - Encounter for immunization Medications: New 2 clonazepam administer 30 minutes before bedtime 0.5 mg PO BEDTIME 10 tabs 0RF
--- OUTSIDE RECORDS SUMMARY | 2024-03-14 15:26 | XMS_ITS ---
Author Organization [facility] Address [address] [place] [address] Care Team Providers Care Statistical Clerk Advertising Name Role Phone BREN RHOADES Primary Care Provider Remy Groves Jr Unavailable [phone] Encounters Encounter Location Date Provider Diagnosis [facility] [address] [place] [address] 04/25/2023 Remy Rodriguez Jr PLAN OF TREATMENT No Information
--- OUTSIDE RECORDS SUMMARY | 2024-03-14 15:26 | XMS_ITS ---
Author Organization [facility] Address [address] [place] [address] Care Team Providers Care Enamel Machine Operator Name Role Phone Jonn Smith Primary Care Provider Deanna Baron Unavailable [phone] Main Nino Unavailable [phone] REASON FOR VISIT No Show 09/06/2023 Encounters Encounter Location Date [facility] [address] [address] 09/06/2023 Main Nino Plan Of Treatment Next Appt Details Provider Name:Deanna kern, 03/28/2024 01:30:00 PM, [address] [place], [address], Progress Notes * Benjamin ALVAREZ PDOB:1965 (58 yo M)Acc No.[id number]:09/06/2023 Patient:?JonaBilljacob Garland :1965???Age:58 Y???Sex:Male Address:[address] [place] [address] [address], [place], [address] * true * Date:? Generated for Printi ng/Faxing/eTransmitting on:?03/14/2024 03:25 PM EST
--- OUTSIDE RECORDS SUMMARY | 2024-03-14 15:26 | XMS_ITS | Clinical Summary ---
Author Organization Unknown Care Team Providers Care Electronic Equipment Repairmen Name Role Phone VERONA MONTES DE OCA, BREN Unavailable Unavailab issa MORRISON RN, ANGELES Unavailable Unavailable CANDY RN, JOY Unavailable Unavailable NILAY CUEVAS, VERToi Unavailable Unavailable Payers Payer Name Policy Type Policy Number Effective Date Expira tion Date MEDICAID [facility] [id number] MEDICARE [place] [id number] Problems Condition Name Condition Details Condition Category Status Onset Date Resolution Date Last Treatment Date Treating Clinician Comments CATATONIC SCHIZOPHRENI A Active 10-15 00:00: 00 TYPE 2 DIABETES MELLITUS WITHOUT COMPLICATION S Active 03-27 00:00: 00 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 Ordering Clinician Indication Dosage Frequency Signature (SIG) Comments Components clozapine 100 mg tablet 05-18 00:00: 00 Yes [id number] 2.5 tablet EVERY PM 2.5 tablet EVERY PM (route: oral) Med Classific ation: Central Nervous System Agents lithium carbonate 300 mg tablet 04-16 00:00: 00 Yes [id number] 2 tablet EVERY PM 2 tablet EVERY PM (route: oral) Med Classific ation: Central Nervous System Agents lorazepam 2 mg tablet 05-18 00:00: 00 Yes [id number] 1 tablet 3x daily 1 tablet 3x daily (route: oral) Med Classific ation: Central Nervous System Agents metformin 500 mg tablet 05-15 00:00: 00 Yes [id number] 1 tablet EVERY AM 1 tablet EVERY AM (route: oral) Med Classific ation: Endocrine olanzapine 10 mg tablet 05-18 00:00: 00 Yes [id number] 1 tablet EVERY PM 1 tablet EVERY PM (route: oral) Med Classific ation: Central Nervous System Agents sertraline 100 mg tablet 04-30 00:00: 00 Yes [id number] 1.5 tablet EVERY AM 1.5 tablet EVERY AM (route: oral) Med Classific ation: Central Nervous System Agents Flomax 0.4 mg capsule 05-16 00:00: 00 Yes [id number] 1 capsule Every noon 1 capsule Every noon (route: oral) Med Classific ation: Genitouri nary Therapy Immunizations Ordered Immunization Name Filled Immunization Name Date Status Comments Refusal Reason COVID-19, COVID-19 2021-02-05 00:00:00 INFLUENZA, TIV (INACTIVATED) 2021-02-03 00:00:00 COVID-19, COVID-19 2021-02-01 00:00:00 COVID SECOND DOSE, COVID SECOND DOSE 2021-01-14 00:00:00 INFLUENZA, TIV (INACTIVATED) 2021-01-05 00:00:00 INFLUENZA, TIV (INACTIVATED) 2020-11-25 00:00:00 COVID-19, COVID-19 2020-07-04 00:00:00 INFLUENZA, TIV (INACTIVATED) 2019-04-12 00:00:00 INFLUENZA, TIV (INACTIVATED) 2019-02-11 00:00:00 Vital Signs Vital Name Observation Time Observation Value Commen ts Pulse 2022-06-07 07:07:00.000 72 /min Pulse 2022-06-03 07:00:00.000 68 /min Respirations 2022-06-07 07:07:00.000 16 /min Respirations 2022-06-03 07:00:00.000 16 /min Systolic Blood Pressure 2022-06-07 07:07:00.000 138 mm [Hg] Systolic Blood Pressure 2022-06-03 07:00:00.000 132 mm [Hg] Diastolic Blood Pressure 2022-06-07 07:07:00.000 70 mm [Hg] Diastolic Blood Pressure 2022-06-03 07:00:00.000 70 mm [Hg] Plan of Treatment Planned Activity Planned Date Details Comments Future Scheduled Test SKILLED NU RSE TO EVALUATE PATIENT, IDENTIFY PRIMARY AND CO-MORBID CONDITIONS CODED PER CODING GUIDELINES, AND DEVELOP PATIENT SPECIFIC PLAN OF CARE THAT INCLUDES PATIENT GOAL FOR HOME HEALTH. CLINICAL SUMMARY RECERT THE PATIENT IS RECEIVING HOMECARE DUE TO CATOTONIC SCHIZOPHRENIA, DIABETES TYPE 2 RECENT HOSPITALIZATION/INPATIENT ADMISSION RELATED TO: NA NEW OR CHANGED MEDICATIONS: NONE PATIENT LIVING SITUATION/CAREGIVER STATUS: LIVES ALONE RECENT FALLS: NA SUMMARIZE SKILLED NEED: PATIENT IS FORGETFUL AND UNABLE TO TAKE MEDICATION UNLESS PREFILLED AND MONITORED FOR COMPLIANCE. PT IS DIABETIC AND CONTINUES WITH ONGOING MONITORING. SN CONTINUES TO EDUCATE PT ON DISEASE MANAGEMENT AND MEDICATION EDUCATION ADDITIONAL DISCIPLINES NEEDED OR DECLINED ORDERED SERVICES: NA [code = SKILLED NURSE TO EVALUATE PATIENT, IDENTIFY PRIMARY AND CO-MORBID CONDITIONS CODED PER CODING GUIDELINES, AND DEVELOP PATIENT SPECIFIC PLAN OF CARE THAT INCLUDES PATIENT GOAL FOR HOME HEALTH. CLINICAL SUMMARY RECERT THE PATIENT IS RECEIVING HOMECARE DUE TO CATOTONIC SCHIZOPHRENIA, DIABETES TYPE 2 RECENT HOSPITALIZATION/INPATIENT ADMISSION RELATED TO: NA NEW OR CHANGED MEDICATIONS: NONE PATIENT LIVING SITUATION/CAREGIVER STATUS: LIVES ALONE RECENT FALLS: NA SUMMARIZE SKILLED NEED: PATIENT IS FORGETFUL AND UNABLE TO TAKE MEDICATION UNLESS PREFILLED AND MONITORED FOR COMPLIANCE. PT IS DIABETIC AND CONTINUES WITH ONGOING MONITORING. SN CONTINUES TO EDUCATE PT ON DISEASE MANAGEMENT AND MEDICATION EDUCATION ADDITIONAL DISCIPLINES NEEDED OR DECLINED ORDERED SERVICES: NA] Future Scheduled Test SKILLED NU RSE TO PRE-POUR MEDICATION PER MEDICATION LIST [code = SKILLED NURSE TO PRE-POUR MEDICATION PER MEDICATION LIST] Future Scheduled Test PATIENT MA Y HAVE ONE SET OF EMERGENCY MEDICATION NOT TO BE PRE-POURED ANY SOONER THAN 24 HOURS BEFORE SEVERE INCLEMENT WEATHER AND FOLLOWING SKILLED NURSE EVALUATION OF PATIENT SAFETY. [code = PATIENT MAY HAVE ONE SET OF EMERGENCY MEDICATION NOT TO BE PRE-POURED ANY SOONER THAN 24 HOURS BEFORE SEVERE INCLEMENT WEATHER AND FOLLOWING SKILLED NURSE EVALUATION OF PATIENT SAFETY.] Future Scheduled Test SKILLED NU RSE FOR O/A OF ALTERED THOUGHT PROCESS AND/OR DISRUPTION IN COGNITIVE OPERATIONS AND ACTIVITIES [code = SKILLED NURSE FOR O/A OF ALTERED THOUGHT PROCESS AND/OR DISRUPTION IN COGNITIVE OPERATIONS AND ACTIVITIES ] Future Scheduled Test MEDICATION S WILL BE HELD AND STORED IN LOCKBOX [code = MEDICATIONS WILL BE HELD AND STORED IN LOCKBOX] Future Scheduled Test SKILLED NU RSE FOR O/A OF CLIENT'S MEDICATION REGIMEN AND RESPONSE TO ORDERED MEDS. MAY TEACH NEW / CHANGED MEDICATIONS WHEN KNOWLEDGE BASE DEFICITS ARE IDENTIFIED. [code = SKILLED NURSE FOR O/A OF CLIENT'S MEDICATION REGIMEN AND RESPONSE TO ORDERED MEDS. MAY TEACH NEW / CHANGED MEDICATIONS WHEN KNOWLEDGE BASE DEFICITS ARE IDENTIFIED.] Future Scheduled Test SKILLED NU RSE TO PERFORM AND RECORD BLOOD SUGAR READING EVERY VISIT AND PRN FOR SIGNS AND SYMPTOMS OF HYPO/HYPERGLYCEMIA. [code = SKILLED NURSE TO PERFORM AND RECORD BLOOD SUGAR READING EVERY VISIT AND PRN FOR SIGNS AND SYMPTOMS OF HYPO/HYPERGLYCEMIA.] Future Scheduled Test SKILLED NU RSE FOR O/A AND TEACHING OF DIABETIC MANAGEMENT INCLUDING BLOOD SUGAR MONITORING/USE OF GLUCOMETER, DIABETIC DIET, LOWER EXTREMITY SKIN INSPECTION, PROPER SKIN/FOOT CARE, AND SIGNS AND SYMPTOMS HYPO/HYPERGLYCEMIA TO REPORT AND METHODS TO MANAGE [code = SKILLED NURSE FOR O/A AND TEACHING OF DIABETIC MANAGEMENT INCLUDING BLOOD SUGAR MONITORING/USE OF GLUCOMETER, DIABETIC DIET, LOWER EXTREMITY SKIN INSPECTION, PROPER SKIN/FOOT CARE, AND SIGNS AND SYMPTOMS HYPO/HYPERGLYCEMIA TO REPORT AND METHODS TO MANAGE] Future Scheduled Test SKILLED NU RSE TO O/A OF PATIENTS MENTAL/BEHAVIORAL STATUS, ASSESS VITAL SIGNS WEEKLY, ALLOW 2 PRNS FOR MEDICATION MANAGEMENT. [code = SKILLED NURSE TO O/A OF PATIENTS MENTAL/BEHAVIORAL STATUS, ASSESS VITAL SIGNS WEEKLY, ALLOW 2 PRNS FOR MEDICATION MANAGEMENT.] Future Scheduled Test SKILLED NU RSE FOR O/A OF GENERAL HEALTH STATUS OF PAIN, CARDIAC, RESPIRATORY, GASTROINTESTINAL, GENITOURINARY, SKIN, NEUROLOGIC, ENDOCRINE SYSTEMS TO IDENTIFY CHANGES ASSOCIATED WITH EXACERBATION FOR EARLY INTERVENTION OF COMPLICATIONS EACH SN VISIT [code = SKILLED NURSE FOR O/A OF GENERAL HEALTH STATUS OF PAIN, CARDIAC, RESPIRATORY, GASTROINTESTINAL, GENITOURINARY, SKIN, NEUROLOGIC, ENDOCRINE SYSTEMS TO IDENTIFY CHANGES ASSOCIATED WITH EXACERBATION FOR EARLY INTERVENTION OF COMPLICATIONS EACH SN VISIT] Future Scheduled Test SKILLED NU RSE FOR O/A OF DEPRESSIVE SYMPTOMS, SN TO REPORT SIGNIFICANT CHANGE IN DEPRESSIVE SYMPTOMS TO CLINICAL PROVIDER FOR EARLY INTERVENTION. [code = SKILLED NURSE FOR O/A OF DEPRESSIVE SYMPTOMS, SN TO REPORT SIGNIFICANT CHANGE IN DEPRESSIVE SYMPTOMS TO CLINICAL PROVIDER FOR EARLY INTERVENTION.] Future Scheduled Test SKILLED NU RSE FOR OBSERVATION AND ASSESSMENT OF PATIENTS PAIN LEVEL AND EFFECTIVENESS OF PAIN MANAGEMENT REGIMEN. SKILLED NURSE TO INSTRUCT PATIENT/CAREGIVER REGARDING PHARMACOLOGIC AND NON-PHARMACOLOGIC PAIN CONTROL MEASURES. SKILLED NURSE TO REPORT TO PHYSICIAN IF PAIN IS UNCONTROLLED WITH CURRENT PAIN MANAGEMENT REGIMEN. [code = SKILLED NURSE FOR OBSERVATION AND ASSESSMENT OF PATIENTS PAIN LEVEL AND EFFECTIVENESS OF PAIN MANAGEMENT REGIMEN. SKILLED NURSE TO INSTRUCT PATIENT/CAREGIVER REGARDING PHARMACOLOGIC AND NON-PHARMACOLOGIC PAIN CONTROL MEASURES. SKILLED NURSE TO REPORT TO PHYSICIAN IF PAIN IS UNCONTROLLED WITH CURRENT PAIN MANAGEMENT REGIMEN.] Future Scheduled Test SKILLED NU RSE TO PROVIDE INSTRUCTION ON FALL PREVENTION MEASURES. [code = SKILLED NURSE TO PROVIDE INSTRUCTION ON FALL PREVENTION MEASURES.] Future Scheduled Test SKILLED NU RSE MAY PICKUP AND TRANSPORT MEDICATIONS [code = SKILLED NURSE MAY PICKUP AND TRANSPORT MEDICATIONS] Goal 2018-10-15 Patient Goal - NOT TO BE HOS PITALIZED Goal 2018-08-14 Patient Goal - NOT TO BE HOS PITALIZED Goal 2018-12-12 Patient Goal - NOT TO BE HOS PITALIZED Goal 2019-02-11 Patient Goal - NOT TO BE HOS PITALIZED Goal 2019-04-12 Patient Goal - NOT TO BE HOS PITALIZED Goal 2019-06-10 Patient Goal - NOT TO BE HOS PITALIZED Goal 2019-08-09 Patient Goal - NOT TO BE HOS PITALIZED Goal 2019-10-10 Patient Goal - NOT TO BE HOS PITALIZED Goal 2019-12-10 Patient Goal - NOT TO BE HOS PITALIZED Goal 2020-02-05 Patient Goal - NOT TO BE HOS PITALIZED Goal 2020-04-07 Patient Goal - NOT TO BE HOS PITALIZED Goal 2020-06-04 Patient Goal - NOT TO BE HOS PITALIZED Goal 2020-08-04 Patient Goal - NOT TO BE HOS PITALIZED Goal 2020-10-01 Patient Goal - NOT TO BE HOS PITALIZED Goal 2020-12-02 Patient Goal - NOT TO BE HOS PITALIZED Goal 2021-02-01 Patient Goal - NOT TO BE HOS PITALIZED Goal 2021-03-31 Patient Goal - NOT TO BE HOS PITALIZED Goal 2021-05-31 Patient Goal - NOT TO BE HOS PITALIZED Goal 2021-07-28 Patient Goal - NOT TO BE HOS PITALIZED Goal 2021-09-28 Patient Goal - NOT TO BE HOS PITALIZED Goal 2021-11-25 Patient Goal - NOT TO BE HOS PITALIZED Goal 2022-01-26 Patient Goal - T O REMAIN AT HOME AND OUT OF THE HOSPITAL THROUGH NEXT EPISODE Goal 2022-03-29 Patient Goal - T O REMAIN AT HOME AND OUT OF THE HOSPITAL AND TO LOSE SOME WEIGHT THROUGH NEXT EPISODE Goal 2022-05-26 Patient Goal - T O REMAIN AT HOME AND OUT OF THE HOSPITAL AND TO LOSE SOME WEIGHT THROUGH NEXT EPISODE Goal 2022-06-13 Patient Goal - T O REMAIN AT HOME AND OUT OF THE HOSPITAL AND TO LOSE SOME WEIGHT THROUGH NEXT EPISODE Goal Provider Goal - A PLAN OF CARE WILL BE ESTABLISHED THAT MEETS PATIENT'S PRISON NEEDS AND INCLUDES PATIENT GOAL FOR HOME HEALTH. Goal Provider Goal - PATIENT WILL COMPLY WITH MEDICATION WHEN SKILLED NURSE PRE-POURS MEDICATION. Goal Provider Goal - Goal Provider Goal - PATIENT WILL BE ABLE TO PERFORM DAILY FUNCTIONS AND HAVE OPTIMAL IMPROVEMENT IN THOUGHT PROCESS Goal Provider Goal - Goal Provider Goal - PATIENT WILL VERBALIZE INCREASED KNOWLEDGE OF CURRENT MEDICATION REGIMEN DURING THE CERTIFICATION PERIOD. Goal Provider Goal - BLOOD SUGAR READING WILL BE OBTAINED ORDERED. Goal Provider Goal - PATIENT/CAREGIVER WILL VERBALIZE/DEMONSTRATE CHANGES IN DIABETIC STATUS WILL BE IDENTIFIED AND REPORTED TO PHYSICIAN FOR PROMPT INTERVENTION THROUGHOUT THE CERTIFICATION PERIOD. Goal Provider Goal - ALTERED MENTAL/BEHAVIORAL STATUS WILL BE IDENTIFIED PROMPTLY AND INTERVENTION INITIATED QUICKLY TO MINIMIZE ASSOCIATED RISKS Goal Provider Goal - CHANGE IN GENERAL HEALTH STATUS WILL BE IDENTIFIED AND REPORTED TO PHYSICIAN FOR PROMPT INTERVENTION TO MINIMIZE ASSOCIATED RISKS THROUGHOUT CERTIFICATION PERIOD. Goal Provider Goal - PATIENT WILL REMAIN SAFE WITHOUT DECOMPENSATION IN DEPRESSIVE CONDITION. PATIENTS MOOD AND MENTAL STATUS WILL EVIDENCE OPTIMAL LEVEL OF FUNCTIONING. Goal Provider Goal - INCREASED PAIN OR INEFFECTIVE PAIN CONTROL MEASURES WILL BE IDENTIFIED AND PROMPTLY REPORTED TO PHYSICIAN THROUGHOUT THE CERTIFICATION PERIOD. Goal Provider Goal - PATIENT/CAREGIVER DEMONSTRATES UNDERSTANDING OF FALL PREVENTION MEASURES BY THE END OF THE CERTIFICATION PERIOD. Reason for Visit REMAINS INPATIENT AT TIME OF DISCHARGE Encounters Start Date/Time End Date/Time Encounter Type Admission Type Attending [facility] Care [facility] Care Department Encounter ID Discharge Date Discharge Status Discharge Condition Discharge Reason Percent Goals Met 2016-03-01 00:00:00 2022-06-13 00:00:00 Outpatient RECERTIFIC ATION NILAY SAULOToi [facility] [id number] 00:00:00 DISCHARGED /TRANSFERR ED TO A SHORT-TERM [facility] REMAINS INPATIENT AT TIME OF DISCHARGE PER PHYSICIAN REQUEST 50.00
--- OUTSIDE RECORDS SUMMARY | 2024-03-14 15:26 | XMS_ITS | Patient Health Record ---
Author Organization [facility] Address [address] [place] [address] Care Team Providers Care Senior Ux Developer Name Role Phone BREN RHOADES Primary Care Provider Remy Groves Jr Unavailable [phone] REASON FOR REFERRAL No Information MEDICATIONS Medication SIG (Take, Route, Frequency, Duration) Notes Start Date End Date Status Sertraline HCl 100 MG Oral for 30 Active LORazepam 2 MG Oral for 30 Act michelle metFORMIN HCl ER 500 MG Oral for 90 Active cloZAPine 100 MG Oral for 30 A ctive MiraLax (colon prep) 17 GM/SCOOP mixed with Gatorade or Crystal Light Orally begin at 5:00 p.m. the day before the procedure for 1 day 05/19/2021 Active [place] Carbonate 300 MG Oral for 30 Active Tamsulosin HCl 0.4 MG Oral for 90 Active IMMUNIZATIONS Vaccine Route Administration Date Status Comme nts Influenza Unknown 11/25/2020 Administered SOCIAL HISTORY Tobacco Use: Social History Observation Description Date Details (start date - stop date) Never Smoker NA - NA Sex Assigned At : Social History Observation Description Sex Assigned At Unknown Tobacco Use/Smoking Question Answer Notes Patient is a nonsmoker Alcohol Screen Question Answer Notes Did you have a drink containing alcohol in the p ast year? No Points 0 Interpretation Negative PROBLEMS Problem Type ICD Code Onset Dates Problem Status W/U Status Risk SNOMED Code Notes Problem Colon cancer screening (Z12.11) Active confirmed 694286499 Problem shelter (current) use of oral hypoglycemic drugs (Z79.84) Active confirmed [id number] Encounters Encounter Location Date Provider Diagnosis [facility] [address] [place] [address] 04/25/2023 Remy Rodriguez Jr PLAN OF TREATMENT Future Test Test Name Order Date COLONOSCOPY 05/19/2021 Insurance Providers Payer Name Payer Address Payer Phone Subscriber Number Group Number Insured Name Patient Relationship to Insured Coverage Start Date Coverage End Date MEDICARE OF [place] [address] [place] [id number] MULUGETA ALVAREZ Self - patient is the insured MEDICAID OF [facility] [address] [place] [address] [id number] MULUGETA ALVAREZ Self - patient is the insured MEDICAL (GENERAL) HISTORY Medical History History ICD Code diabetes mellitus hypertension schizophrenia BPH Surgical History Surgery Date(Month/Year)
--- OUTSIDE RECORDS SUMMARY | 2024-03-14 15:26 | XMS_ITS | Clinical Summary ---
Author Organization Unknown Care Team Providers Care Machine Biller Name Role Phone VERONA MONTES DE OCA, BREN Unavailable Unavailab issa MORRISON RN, ANGELES Unavailable Unavailable CANDY RN, JOY Unavailable Unavailable NILAY CUEVAS, VERToi Unavailable Unavailable Payers Payer Name Policy Type Policy Number Effective Date Expira tion Date MEDICAID [facility] [id number] MEDICARE - [place] [id number] Problems Condition Name Condition Details Condition Category Status Onset Date Resolution Date Last Treatment Date Treating Clinician Comments CATATONIC SCHIZOPHRENI A Active 10-15 00:00: 00 TYPE 2 DIABETES MELLITUS WITHOUT COMPLICATION S Active 03-27 00:00: 00 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 Active [...] 100 mg tablet 05-18 00:00: 00 Yes [id number] 2.5 tablet EVERY PM 2.5 tablet EVERY PM (route: oral) Med Classific ation: Central Nervous System Agents lithium carbonate 300 mg tablet 04-16 00:00: 00 Yes [id number] 2 tablet EVERY PM 2 tablet EVERY PM (route: oral) Med Classific ation: Central Nervous System Agents lorazepam 2 mg tablet 05-18 00:00: 00 Yes [id number] 1 tablet 3x daily 1 tablet 3x daily (route: oral) Med Classific ation: Central Nervous System Agents metformin 500 mg tablet 05-15 00:00: 00 Yes [id number] 1 tablet EVERY AM 1 tablet EVERY AM (route: oral) Med Classific ation: Endocrine olanzapine 10 mg tablet 05-18 00:00: 00 Yes [id number] 1 tablet EVERY PM 1 tablet EVERY PM (route: oral) Med Classific ation: Central Nervous System Agents sertraline 100 mg tablet 04-30 00:00: 00 Yes [id number] 1.5 tablet EVERY AM 1.5 tablet EVERY AM (route: oral) Med Classific ation: Central Nervous System Agents Flomax 0.4 mg capsule 05-16 00:00: 00 Yes [id number] 1 capsule Every noon 1 capsule Every [...] CARE WILL BE ESTABLISHED THAT MEETS PATIENT'S SNF NEEDS AND INCLUDES PATIENT GOAL FOR HOME [...] End Date/Time Encounter Type Admission Type Attending [facility] [place] Care Department Encounter ID Discharge Date Discharge Status Discharge Condition Discharge Reason Percent Goals Met 2016-03-01 00:00:00 2022-06-13 00:00:00 Outpatient RECERTIFIC ATION NILAY SAULOToi [facility] [id number] 00:00:00 DISCHARGED /TRANSFERR ED TO A SHORT-TERM [facility] REMAINS INPATIENT AT TIME OF DISCHARGE PER PHYSICIAN REQUEST 50.00
--- OUTSIDE RECORDS SUMMARY | 2024-03-14 15:26 | XMS_ITS | Patient Health Record ---
Author Organization [facility] Address [address] [facility] [place] [address] Care Team Providers Care Burner Operator Name Role Phone Sarah Jonn Primary Care Provider [phone] Deanna Baron Unavailable [phone] Main Nino Unavailable [phone] Allergies No Known Allergies Reason For Referral No Information Medications Medication SIG (Take, Route, Frequency, Duration) Notes Start Date End Date Status Physical Therapy . . . 2-3x/week for 3- 4 weeks Active Ciclopirox Olamine 0.77 % 1 application to affected area Externally Twice a day to effected areas on feet for 30 days Active Flomax Active Abilify Active Custom Orthotics as directed A ctive clonazePAM Active metFORMIN HCl 500 MG 1 tablet with a anat l Orally Once a day for 30 day(s) Active Tamsulosin HCl Activ e [place] Carbonate 600 MG 1 capsule at be dtime Orally Once a day for 30 day(s) Active LORazepam 2 MG 1 tablet at bedtime as needed Orally Once a day Active Zoloft 100 mg Oral Active Night Splint AFO - L1930 as directed Active Immunizations Vaccine Route Administration Date Status Comme nts COVID-19 Keanu & Keanu/Mila Unknown 01/19/2021 Administered 1st 07/04/2020 Influenza Unknown 12/26/2017 Administered Influenza Unknown 01/09/2019 Administered Influenza Unknown 12/14/2021 Administered Social History Tobacco Use: Social History Observation [...] Are you an other tobacco user? No Problems Problem Type SNOMED Code ICD Code Onset Dates Problem Status W/U Status Risk Notes Problem Polyneuropathy due to type 2 diabetes mellitus (590517139) Type 2 diabetes mellitus with diabetic polyneuropathy (E11.42) Active confirmed Vital Signs Blood pressure diastolic 80 mm Hg 12/26/2023 Height 5ft 10in in 12/26/2023 Blood pressure systolic 120 mm Hg 12/26/2023 Weight 227 lbs 12/26/2023 BMI 32.57 kg/m2 12/26/2023 Procedures Procedure Date Ordered Date Performed Result Body Sit e 93503-URUMMXK NAIL, 6 OR MORE 12/26/2023 N/A Encounters Encounter Location Date Provider Diagnosis [address] [address] 05/01/2023 Main Nino [address] [address] 05/04/2023 Main Nino Tinea unguium B35.1 ; Type 2 diabetes mellitus with diabetic polyneuropathy E11.42 ; Plantar fascial fibromatosis M72.2 ; Pain in right toe(s) M79.674 ; Pain in left toe(s) M79.675 ; Tinea pedis B35.3 ; Calcaneal spur, right foot M77.31 ; Metatarsalgia, left foot M77.42 and Xerosis cutis L85.[address] [address] 12/26/2023 Deanna Tod Tinea unguium B35.1 and Type 2 diabetes mellitus with diabetic polyneuropathy E11.[address] [address] 09/06/2023 Main Nino Assessments Encounter Date Diagnosis (ICD Code) Assessment Notes Treatment Notes Treatment Clinical Notes Section Notes 05/04/2023 Tinea unguium (ICD-10 - B35.1) 12/26/2023 Tinea unguium (ICD-10 - B35.1) 12/26/2023 Type 2 diabetes mellitus with diabetic polyneuropathy (ICD-10 - E11.42) 05/04/2023 Type 2 diabetes mellitus with diabetic polyneuropathy (ICD-10 - E11.42) 05/04/2023 Plantar fascial fibromatosis (ICD-10 - M72.2) 05/04/2023 Pain in right toe(s) (ICD-10 - M79.674) 05/04/2023 Pain in left toe(s) (ICD-10 - M79.675) 05/04/2023 Tinea pedis (ICD-10 - B35.3) 05/04/2023 Calcaneal spur, right foot (ICD-10 - M77.31) 05/04/2023 Metatarsalgia, left foot (ICD-10 - M77.42) 05/04/2023 Xerosis cutis (ICD-10 - L85.3) Plan Of Treatment Pending Test Test Name Order Date X ray : Foot, right 3V 10/17/2018 85540-NEOUHCD NAIL, 6 OR MORE 12/26/2023 23838-TBES SKIN LESIONS, OVER 4 04/07/19 22 53672-QAIV SKIN LESIONS, OVER 4 01/31/20 19 07926-KFAP SKIN LESIONS, OVER 4 06/05/19 20 13937-PJVM SKIN LESIONS, OVER 4 07/31/19 19 63690-MEDY SKIN LESIONS, OVER 4 10/18/19 19 24554-HUZF SKIN LESIONS, OVER 4 09/18/19 20 47164-PSIQ SKIN LESIONS, OVER 4 12/16/19 20 83416-KODF SKIN LESIONS, OVER 4 04/08/19 21 83716-IGWT SKIN LESIONS, OVER 4 08/06/19 21 73952-WMVR SKIN LESIONS, OVER 4 12/17/19 21 V7769-DUREDVOO DYSTROPHIC NAILS ANY # C1949-PNQRFGNO DYSTROPHIC NAILS ANY # K2254-VUXVWEPA DYSTROPHIC NAILS ANY # K5995-RSQEJRFZ DYSTROPHIC NAILS ANY # K7377-CZSCMLZB DYSTROPHIC NAILS ANY # S0860-UTYSEWPA DYSTROPHIC NAILS ANY # M9464-HXEVVLSX DYSTROPHIC NAILS ANY # Next Appt Details Provider Name:Deanna kern, 03/28/2024 01:30:00 PM, [address] [place], [address], Insurance Providers Payer Name Payer Address Payer Phone Subscriber Number Group Number Insured Name Patient Relationship to Insured Coverage Start Date Coverage End Date Aetna Medicare Open [address] [place] [address] [id number] Benjamin Tenorio Self - patient is the insured Medical (General) History Medical History History ICD Code Depression type II diabetes Surgical History Surgery Date(Month/Year) colonoscopy 06/19/21 Hospitalization History Reason Date(Month/Year) [facility] visit 12/2018
--- OUTSIDE RECORDS SUMMARY | 2024-03-14 15:26 | XMS_ITS ---
Author Organization [facility] Address [address] [place] [address] Care Team Providers Care President Practicing Urologist Name Role Phone SarahJonn Primary Care Provider Deanna Baron Unavailable [phone] Main Nino Unavailable [phone] REASON FOR VISIT Last Visit PCP 11/2021, At Risk Footcare Encounters Encounter Location Date Provider Diagnosis [facility] [address] [place] [address] 09/06/2023 Main Nino Tinea unguium B35.1 ; Type [...] Appt Details Follow Up: 4 Months, Reason: Provider Name:Deanna Jeter erlin, 03/28/2024 01:30:00 PM, [address] [place], [address], Procedure Notes * Category Sub-Category Detail Notes Keratoma Treatment Parring or Cutting o f Benign Hyperkeratotic Lesion(s) 07565 ( >4 Lesions) - The Benign hyperkeratotic [...] (G0127) Progress Notes * Benjamin ALVAREZ PDOB:1965 (58 yo M)Acc No.[id number]:09/06/2023 Progress Note Patient:?Benjamin ALVAREZ Provider:?Main Nino DPM :1965???Age:58 Y???Sex:Male Wilver e:09/06/2023 Address:[address] [place] [address], [place], [place] Pcp:Jonn Smith Subjective: * Chief Complaints: * ???1. Last Visit PCP 11/2021. 2. At Risk Footcare. * HPI: ???At Risk footcare:?Pt States Last PCP Visit:?Date?03/27/2023 ???Skin problems:?Nature:?dryness.?Location:?B/L , Heel/Rearfoot, Forefoot.?Duration:?several months.?Course:?unresolved.?Treatments:?pt has been non-compliant with cetaphil cream as I rx last sev visits.? * ROS:?General/Constitutional:?Nausea?denies.?Vomiting?denies.?Hunger Thirst?admits.?Loss appetite?denies.?Chills?denies.?Fatigue?denies.?Fever?denies.?Night Sweats?denies.?Unexplained weight loss?denies.?Unexplained weight gain?denies.?HEENTM:?Dentures?denies.?Dizziness?denies.?Glasses/contacts?denies.?Retinopathy?de nies.?Blurred/double vision?denies.?TMJ?denies.?Discharge/drainage?denies.?Implants?denies.?Sore throat?denies.?Dental implants?denies.?Hard of hearing ?denies.?Difficulty chewing/swallowing/speaking?denies.?Nose bleeds?denies.?Sore mouth?denies.?Respiratory:?On Oxygen?denies.?Pneumonia/pleurisy?denies.?Bronchitis?denies.?Emphysema?denies.?C oughing?denies.?Cough blood?denies.?Shortness of breath?denies.?Wheezing?denies.?Cardiovascular:?Pacemaker?denies.?MVP?denies.?WPW?denies.?CHF?denies.?Heart attack?denies.?Septal defect?denies.?Rapid beat?denies.?Chest pain ?denies.?Atrial Fib.?denies.?Murmur/Palpitations?denies.?Gastrointestinal:?Hemorrhoids?denies.?Stomach/Abdominal pain?denies.?Dark blood stool?denies.?Irritable bowel ?denies.?Constipation?admits.?Diarrhea?denies.?Hematology:?Swelling?denies.?Clots?denies.?Varicose Veins?denies.?Bruising?denies.?Bleeding problem?denies.?Genitourinary:?Blood urine?denies.?Frequent/Painfu/urination/bladder control?denies.?Kidney stones?denies.?Infection (UTI)?denies.?Nephropathy?denies.?sex trans dis (STD)?denies.?Prostate?denies.?Musculoskeletal:?Hammertoes?denies.?Bunions?denies.?Back Pain?denies.?Muscle Cramps/ Resting?denies.?Muscle cramps / walking?denies.?Generalized aches and pains?denies.?Weakness?denies.?Integ.:?Solorzano?denies.?Scars?denies.?Corns/calluses?denies.?Ingrown nails?denies.?Painful nails?denies.?Open Sores?denies.?Rashes?denies.?Neurologic:?Difficulty sleeping?denies.?Brain disorder?denies.?Numbness?denies.?Balance trouble?denies.?Confusion?denies.?Fainting/blackouts?denies.?Tingling?denies.?Tr emors?denies.? * Medical History:? Objective: * Vitals:? * Examination: ???Ophthalmology Referral: ?DIABETES EYE EXAM?General Examination: ?GENERAL APPEARANCE:?pleasant, alert, well nourished, well developed, well hydrated, with good attention to hygene/body habitus, and in no acute distress.?ORIENTED:?person,place, and time.?FOOT EXAM:?Neurological: ?SENSORY:?exam demonstrates. reduced vibration lower extremity, at Forefoot, B/L, Neurological exam demonstrates mild pop right heel and plantar left mtpj's, 5.07 monofilament test performed at plantar aspects of 5 varied sites per foot shows sensation, reduced , B/L.?TINEL'S COMPRESSION:?Negative tarsal tunnel, nae pedis, and medial calcaneal nerves, B/L.?BABINSKI REFLEX:?Absent, B/L.?Vascular: ?DP PULSES (B):? 03/30, B/L.?PT PULSES (B):? 03/30, B/L.?CAPILLARY FILL TIME:?3 secs. per digit, B/L.?TROPHIC CONDITION-TEXTURE/ELASTICITY/TURGOR/HAIR GROWTH (B):?normal, B/L.?TEMPERTURE GRADIENT (C):?warm to cool, proximal to distal, B/L.?EDEMA (C):? /, B/L, Feet, Ankle(s), Leg(s).?Nails: ?NAILS are:?Elongated, overgrown, dystrophic, lytic, greater than 3mm thick, discolored and friable with crumbly malodorous subungual debris, with dull to no pain on palpation due to neuropathy, 2-5 B/L.?Dermatologic: ?SKIN FINDINGS:?Skin exam reveals keratotic lesion(s) located at, SUB MTH (s), 1, 5,B/L, Heel(s), B/L.?Orthopedic: ?MUSCLE STRENGTH:?5/5 all groups in a symmetrical fashion B/L.?GAIT ABNORMALITY:?pronated, abducted, B/L.?FOOTWEAR:? worn, nonsupportive.? Assessment: * Assessment: 1.?Tinea unguium - B35.1 (Pr imary)???2.?Type 2 diabetes mellitus with diabetic polyneuropathy - E11.42???3.?Plantar fascial fibromatosis - M72.2???4.?Pain in right toe(s) - M79.674???5.?Pain in left toe(s) - M79.675???6.?Tinea pedis - B35.3???7.?Calcaneal spur, right foot - M77.31???8.?Metatarsalgia, left foot - M77.42???9.?Xerosis cutis - L85.3??? Plan: * Treatment: * Procedures:?Keratoma Treatment:?Parring or Cutting of Benign Hyperkeratotic Lesion(s)?76681 ( >4 Lesions) - The Benign hyperkeratotic lesions, as described above were pared, and/or cut utilizing a sterile #15 blade, tissue nippers, and/or dremel.?Nail Reduction:?Nail Reduction?Trimming of dystrophic nails performed to reduce/remove overall nail length and girth, by manual and electrical means with use of a nail nipper and/or dremel, to more viable healthy nail plate or bed tissue 6-10 (G0127).? * Procedure Codes:?86442 TRIM SKIN LESIONS, OVER 4, Modifiers: XS , G0127 TRIMMING DYSTROPHIC NAILS ANY #, Modifiers: XS * Follow Up:?4 Months * Images: * The named appointment provid er may or may not be the originator of this progress note, and it is not deemed complete until electronically signed by the appointment provider. Sign off status: Pending * Provider:?Main Nino DPM Date:? 024 Generated for Senia velásquez/Mary/Geriitting on:?03/14/2024 03:25 PM EST History and Physical [...] B/L Orthopedic GAIT ABNORMALITY: pronated, abducted, B/L FOOTWEAR: worn, nonsupportive MUSCLE STRENGTH: 5/5 all groups [...] Screening:: Yes 03/2022 Vascular DP PULSES (B): 1/4, B/L PT PULSES (B): 1/4, B/L CAPILLARY FILL TIME: 3 secs. per digit, B/L TEMPERTURE GRADIENT (C): warm to cool, p roximal to distal, B/L TROPHIC CONDITION-TEXTURE/ELASTICITY/TURGOR/HAIR GROWTH (B): normal, B/L EDEMA (C): 1/4, B/L, Feet, Ankl e(s), Leg(s) Nails NAILS are: Elongated, overg rown, dystrophic, lytic, greater than 3mm thick, discolored and friable with crumbly malodorous subungual debris, with dull to no pain on palpation due to neuropathy, 2-5 B/L
[2024-03-14 15:27] VITALS: BP 150/80; PULSE 92; O2SAT 98; BMI 31.9
== END 2024-03-14 15:50 | disposition home or self-care (01) ==
PROVIDERS: PCP Internal Medicine; Visit Provider Internal Medicine
DX: F25.9 Schizoaffective disorder, unspecified (principal); G24.01 Drug induced subacute dyskinesia; Z23 Encounter for immunization

== ENCOUNTER → 2024-03-14 15:22 | Outpatient (BNVA) | payer MEDICARE, MEDICAID, SELFPAY | PROVIDERS: PCP Internal Medicine; Visit Provider Internal Medicine | DX: F25.9 Schizoaffective disorder, unspecified (principal); G24.01 Drug induced subacute dyskinesia; Z23 Encounter for immunization | CPT/HCPCS: 90471; 90656; 99212 ==

== ENCOUNTER 2024-03-25 06:10 | Day surgery (SDC) | payer MEDICARE, MEDICAID, SELFPAY ==
--- OUTSIDE RECORDS SUMMARY | 2024-03-18 15:18 | XMS_ITS ---
Author Organization [facility] Address [address] [place] [address] Care Team Providers Care Transmission Superintendent Name Role Phone Jonn Smith Primary Care Provider [phone] Deanna Baron Unavailable [phone] Main Nino Unavailable [phone] REASON FOR VISIT No Show 09/06/2023 Encounters Encounter Location Date [facility] [address] [address] 09/06/2023 Main Nino Plan Of Treatment Next Appt Details Provider Name:Deanna kern, 03/28/2024 01:30:00 PM, [address] [place], [address], Progress Notes * Benjamin ALVAREZ PDOB:1965 (58 yo M)Acc No.[id number]:09/06/2023 Patient:?JonaBilljacob Garland :1965???Age:58 Y???Sex:Male Address:[address] [place] [address] [address], [place], [address] * true * Date:? Generated for Printi ng/Faxing/eTransmitting on:?03/18/2024 03:18 PM EST
--- OUTSIDE RECORDS SUMMARY | 2024-03-18 15:18 | XMS_ITS ---
Author Organization [facility] Address [address] [place] [address] Care Team Providers Care Ad Copy Writer Name Role Phone SarahJonn Primary Care Provider Deanna Baron Unavailable [phone] Main Nino Unavailable [phone] REASON FOR VISIT Last Visit PCP 11/2021, At Risk Footcare Encounters Encounter Location Date Provider Diagnosis [facility] [address] [place] [address] 09/06/2023 Main Nino Tinea unguium B35.1 ; [...] Name:Deanna Jeter erlin, 03/28/2024 01:30:00 PM, [address] [place], [address], Procedure Notes * Category Sub-Category Detail Notes Keratoma Treatment Parring or Cutting o f Benign Hyperkeratotic Lesion(s) 88418 ( >4 Lesions) - The Benign hyperkeratotic [...] * Benjamin ALVAREZ PDOB:1965 (58 yo M)Acc No.[id number]:09/06/2023 Progress Note Patient:?Benjamin ALVAREZ Provider:?Main Nino DPM :1965???Age:58 Y???Sex:Male Wilver e:09/06/2023 Address:[address] [place] [address], [place], [place] Pcp:Jonn Smith Subjective: * Chief Complaints: * [...] Procedures:?Keratoma Treatment:?Parring or Cutting of Benign Hyperkeratotic Lesion(s)?17770 ( >4 Lesions) - The Benign hyperkeratotic lesions, as described above were pared, and/or cut utilizing a sterile #15 blade, tissue nippers, and/or dremel.?Nail Reduction:?Nail Reduction?Trimming of dystrophic nails performed to reduce/remove overall nail length and girth, by manual and electrical means with use of a nail nipper and/or dremel, to more viable healthy nail plate or bed tissue 6-10 (G0127).? * Procedure Codes:?97599 TRIM SKIN LESIONS, OVER 4, Modifiers: XS [...] DPM Date:? 024 Generated for Senia velásquez/Mary/Geriitting on:?03/18/2024 03:18 PM EST History and Physical Notes * [...]
--- OUTSIDE RECORDS SUMMARY | 2024-03-18 15:19 | XMS_ITS | Patient Health Record ---
Author Organization [facility] Address [address] [place] [address] Care Team Providers Care Family Living Educator Name Role Phone BREN RHOADES Primary Care Provider Remy Groves Jr Unavailable REASON FOR REFERRAL No Information MEDICATIONS Medication [...] the procedure for 1 day 05/19/2021 Active [place] Carbonate 300 MG Oral for 30 Active [...] Problem Colon cancer screening (Z12.11) Active confirmed [id number] Problem shelter (current) use of oral hypoglycemic drugs (Z79.84) Active confirmed [id number] Encounters Encounter Location Date Provider Diagnosis [facility] [address] [place] [address] 04/25/2023 Remy Rodriguez Jr PLAN OF TREATMENT Future Test Test Name Order Date COLONOSCOPY 05/19/2021 Insurance Providers Payer Name Payer Address Payer Phone Subscriber Number Group Number Insured Name Patient Relationship to Insured Coverage Start Date Coverage End Date MEDICARE OF [place] [address] [place] [address] [id number] MULUGETA ALVAREZ Self - patient is the insured MEDICAID OF [facility] [address] [place] [address] [phone] [id number] MULUGETA ALVAREZ Self - patient is the insured MEDICAL (GENERAL) HISTORY Medical History History ICD Code diabetes mellitus hypertension schizophrenia BPH Surgical History Surgery Date(Month/Year)
--- OUTSIDE RECORDS SUMMARY | 2024-03-18 15:19 | XMS_ITS | Clinical Summary ---
Author Organization Unknown Care Team Providers Care Damaged Freight Inspector Name Role Phone VERONA MONTES DE OCA, BREN Unavailable Unavailab issa MORRISON RN, ANGELES Unavailable Unavailable CANDY RN, JOY Unavailable Unavailable NILAY CUEVAS, VERToi Unavailable Unavailable Payers Payer Name Policy Type Policy Number Effective Date Expira tion Date MEDICAID [facility] [id number] MEDICARE [place] [id number] Problems Condition Name Condition Details Condition Category Status Onset Date Resolution Date Last Treatment Date Treating Clinician Comments CATATONIC SCHIZOPHRENI A Active 10-15 00:00: 00 TYPE 2 DIABETES MELLITUS WITHOUT COMPLICATION S Active 03-27 00:00: 00 MANAGER SWITCH (CURRENT) USE OF ORAL HYPOGLYCEMIC DRUGS Active [...] 100 mg tablet 05-18 00:00: 00 Yes [id number] 2.5 tablet EVERY PM 2.5 tablet EVERY PM (route: oral) Med Classific ation: Central Nervous System Agents lithium carbonate 300 mg tablet 04-16 00:00: 00 Yes [id number] 2 tablet EVERY PM 2 tablet EVERY PM (route: oral) Med Classific ation: Central Nervous System Agents lorazepam 2 mg tablet 05-18 00:00: 00 Yes [id number] 1 tablet 3x daily 1 tablet 3x daily (route: oral) Med Classific ation: Central Nervous System Agents metformin 500 mg tablet 05-15 00:00: 00 Yes [id number] 1 tablet EVERY AM 1 tablet EVERY AM (route: oral) Med Classific ation: Endocrine olanzapine 10 mg tablet 05-18 00:00: 00 Yes [id number] 1 tablet EVERY PM 1 tablet EVERY PM (route: oral) Med Classific ation: Central Nervous System Agents sertraline 100 mg tablet 04-30 00:00: 00 Yes [id number] 1.5 tablet EVERY AM 1.5 tablet EVERY AM (route: oral) Med Classific ation: Central Nervous System Agents Flomax 0.4 mg capsule 05-16 00:00: 00 Yes [id number] 1 capsule Every noon 1 capsule Every [...] LOSE SOME WEIGHT THROUGH NEXT EPISODE Goal 2020-10-01 Patient Goal - NOT TO [...] - NOT TO BE HOS PITALIZED Goal Provider Goal - A PLAN OF CARE WILL BE ESTABLISHED THAT MEETS PATIENT'S HALFWAY NEEDS AND INCLUDES PATIENT GOAL FOR HOME [...] Date/Time Encounter Type Admission Type Attending [facility] Care Department Encounter ID Discharge Date Discharge Status Discharge Condition Discharge Reason Percent Goals Met 2016-03-01 00:00:00 2022-06-13 00:00:00 Outpatient RECERTIFIC ATION [facility] [id number] 7407-03-20 00:00:00 DISCHARGED /TRANSFERR ED TO A SHORT-TERM [facility] REMAINS INPATIENT AT TIME OF DISCHARGE PER PHYSICIAN REQUEST 50.00
--- OUTSIDE RECORDS SUMMARY | 2024-03-18 15:19 | XMS_ITS | Patient Health Record ---
Author Organization [facility] Address [address] [facility] [address] Care Team Providers Care Dancing Teacher Name Role Phone Sarah Jonn Primary Care Provider [phone] Deanna Baron Unavailable [phone] Main Nino Unavailable [phone] Allergies No Known Allergies Reason For Referral [...] 30 day(s) Active Tamsulosin HCl Activ e [place] Carbonate 600 MG 1 capsule at be [...] Polyneuropathy due to type 2 diabetes mellitus (683046418) Type 2 diabetes mellitus with diabetic polyneuropathy (E11.42) Active confirmed Vital Signs Blood pressure diastolic 80 mm Hg 12/26/2023 Height 5ft 10in in 12/26/2023 Blood pressure systolic 120 mm Hg 12/26/2023 Weight 227 lbs 12/26/2023 BMI 32.57 kg/m2 12/26/2023 Procedures Procedure Date Ordered Date Performed Result Body Sit e 95943-OTQJDBV NAIL, 6 OR MORE 12/26/2023 N/A Encounters Encounter Location Date Provider Diagnosis [address] [address] 05/01/2023 Main Nino [address] [address] 05/04/2023 Main Nino Tinea unguium B35.1 ; Type 2 diabetes mellitus with diabetic polyneuropathy E11.42 ; Plantar fascial fibromatosis M72.2 ; Pain in right toe(s) M79.674 ; Pain in left toe(s) M79.675 ; Tinea pedis B35.3 ; Calcaneal spur, right foot M77.31 ; Metatarsalgia, left foot M77.42 and Xerosis cutis L85.[address] [address] 12/26/2023 Deanna Tod Tinea unguium B35.1 and Type 2 diabetes mellitus with diabetic polyneuropathy E11.[address] [address] 09/06/2023 Main Nino Assessments Encounter Date Diagnosis [...] X ray : Foot, right 3V 10/17/2018 04091-JODDYCL NAIL, 6 OR MORE 12/26/2023 75995-XOWL SKIN LESIONS, OVER 4 04/07/19 22 26511-FKZU SKIN LESIONS, OVER 4 01/31/20 19 16855-HVFN SKIN LESIONS, OVER 4 06/05/19 20 51794-XQAH SKIN LESIONS, OVER 4 07/31/19 19 95356-KAVN SKIN LESIONS, OVER 4 10/18/19 19 90493-BFXP SKIN LESIONS, OVER 4 09/18/19 20 24143-NAOY SKIN LESIONS, OVER 4 12/16/19 20 28542-KMTM SKIN LESIONS, OVER 4 04/08/19 21 42871-DWRK SKIN LESIONS, OVER 4 08/06/19 21 26848-SNHJ SKIN LESIONS, OVER 4 12/17/19 21 O2225-LDFHNMTW DYSTROPHIC NAILS ANY # E4622-ZLOUTMFE DYSTROPHIC NAILS ANY # B3662-RLMQNKBS DYSTROPHIC NAILS ANY # P5361-XNZFGJPB DYSTROPHIC NAILS ANY # S4008-FUSRQZID DYSTROPHIC NAILS ANY # W8219-EDUDZOIZ DYSTROPHIC NAILS ANY # U7047-UQBKTTYO DYSTROPHIC NAILS ANY # Next Appt Details Provider Name:Deanna kern, 03/28/2024 01:30:00 PM, [address] [place], [address], Insurance Providers Payer Name Payer Address Payer Phone Subscriber Number Group Number Insured Name Patient Relationship to Insured Coverage Start Date Coverage End Date [employer] Medicare Open [address] [place] [address] [id number] Benjamin Tenorio Self - patient is the insured Medical (General) History Medical History History ICD Code Depression type II diabetes Surgical History Surgery Date(Month/Year) colonoscopy 06/19/21 Hospitalization History Reason Date(Month/Year) [facility] visit 12/2018
--- OUTSIDE RECORDS SUMMARY | 2024-03-18 15:19 | XMS_ITS | Clinical Summary ---
Author Organization Unknown Care Team Providers Care Pipe Stem Sawyer Name Role Phone VERONA MONTES DE OCA, BREN Unavailable Unavailab issa MORRISON RN, ANGELES Unavailable Unavailable CANDY RN, JOY Unavailable Unavailable NILAY CUEVAS, VERToi Unavailable Unavailable Payers Payer Name Policy Type Policy Number Effective Date Expira tion Date MEDICAID [facility] [id number] [place]IC[place] [id number] Problems Condition Name Condition Details Condition Category Status Onset Date Resolution Date Last Treatment Date Treating Clinician Comments CATATONIC SCHIZOPHRENI A Active 10-15 00:00: 00 TYPE 2 DIABETES MELLITUS WITHOUT COMPLICATION S Active 03-27 00:00: 00 BUSINESS CONTROL MANAGER (CURRENT) USE OF ORAL HYPOGLYCEMIC DRUGS Active [...] 100 mg tablet 05-18 00:00: 00 Yes [id number] 2.5 tablet EVERY PM 2.5 tablet EVERY PM (route: oral) Med Classific ation: Central Nervous System Agents lithium carbonate 300 mg tablet 04-16 00:00: 00 Yes [id number] 2 tablet EVERY PM 2 tablet EVERY PM (route: oral) Med Classific ation: Central Nervous System Agents lorazepam 2 mg tablet 05-18 00:00: 00 Yes [id number] 1 tablet 3x daily 1 tablet 3x daily (route: oral) Med Classific ation: Central Nervous System Agents metformin 500 mg tablet 05-15 00:00: 00 Yes [id number] 1 tablet EVERY AM 1 tablet EVERY AM (route: oral) Med Classific ation: Endocrine olanzapine 10 mg tablet 05-18 00:00: 00 Yes [id number] 1 tablet EVERY PM 1 tablet EVERY PM (route: oral) Med Classific ation: Central Nervous System Agents sertraline 100 mg tablet 04-30 00:00: 00 Yes [id number] 1.5 tablet EVERY AM 1.5 tablet EVERY AM (route: oral) Med Classific ation: Central Nervous System Agents Flomax 0.4 mg capsule 05-16 00:00: 00 Yes [id number] 1 capsule Every noon 1 capsule Every [...] CARE WILL BE ESTABLISHED THAT MEETS PATIENT'S GROUP HOME NEEDS AND INCLUDES PATIENT GOAL FOR HOME [...] End Date/Time Encounter Type Admission Type Attending [facility] Care [facility] Care Department Encounter ID Discharge Date Discharge Status Discharge Condition Discharge Reason Percent Goals Met 2016-03-01 00:00:00 2022-06-13 00:00:00 Outpatient RECERTIFIC ATION [facility] [id number] [id number] 00:00:00 DISCHARGED /TRANSFERR ED TO A SHORT-TERM [facility] REMAINS INPATIENT AT TIME OF DISCHARGE PER PHYSICIAN REQUEST 50.00
--- OUTSIDE RECORDS SUMMARY | 2024-03-18 15:19 | XMS_ITS ---
Author Organization [facility] Address [address] [place] [address] Care Team Providers Care Machine Straw Hat Presser Name Role Phone BREN RHOADES Primary Care Provider Remy Groves Jr Unavailable Encounters Encounter Location Date Provider Diagnosis [facility] [address] [place] [address] 04/25/2023 Remy Rodriguez Jr PLAN OF TREATMENT No Information
[2024-03-25] VITALS (7 sets, daily range): BP systolic 132–169; BP diastolic 80–86; PULSE 75–87; RESP 16–22; TEMP 36.1–36.4; O2SAT 96–99; BMI 28.7
--- NOTE | 2024-03-25 07:05 | MHC.SHP ---
Pre-Procedural Eval Section A - 24 Hr Update-Section A only Date of Service: 03/25/24 The patient is an INPATIENT: No Changes since office visit: No Cold of Flu in the past 2 weeks, No New Medical Problems, No Changes in Medication and No Patient answered all questions The patient has been examined within 24 hours of the surgical procedure. The History & Physical has been completed within 30 days and I have reviewed it.: Yes Section B - Complete if H&P > 30 days Chief Complaint: depression Details of Present Illness: Catatonia has been resolved, he feels much better on maintenance ECT Relevant Family History (Specify if Yes): No Relevant Social History: None Present Medications: see Short Stay Collaborative assessment Medical History: No relevant PMH History of Previous Operations: No relevant previous surgery Allergies: Allergies Allergy/AdvReac Type Severity Reaction Status Date / Time No Known Allergies [NKA] Allergy Unknown NONE Verified 03/01/24 06:35 Review of Systems Sugical H&P ROS: Negative: Cardiovascular, Respiratory, Neurological, Psychiatric, Hem-Onc, Allergic/Immunologic, Gastrointestinal, Genitourinary, Musculoskeletal, Integumentary, Endocrine and Eyes/Ears/Nose/Throat and Yes, Specify: Constitution (overweight) Exam Surgical H&P Exam: Normal: HEENT, Normal: Heart, Normal: Lungs, Normal: Extremities, Normal: Abdomen and Normal: Skin and Significant Findings: Neurological (mild tremors due to TD) Plan Diagnosis/Plan: Unchanged I have reviewed the history and physical and performed a pertinent physical examination on my patient. No changes have occurred unless specified. Time Spent With Patient Time: Total time managing care of this patient today __20__ minutes.
--- NOTE | 2024-03-25 07:30 | P.CONAN_ITS ---
HPI - Anesthesia Eval Consult details Narrative: 58 yo male patient for ECT PMFSH Active Problems Active Problems: All Active Problems Tardive dyskinesia (Acute) Schizoaffective disorder (Acute) Nocturnal hypoxia (Acute) Schizoaffective disorder, depressive type (Acute) Benign prostate hyperplasia (Acute) Essential hypertension (Acute) Right hip pain (Acute) ALFREDO Past Medical History Medical History Tardive dyskinesia Mild sleep apnea Nocturnal hypoxia Routine medical exam Joint inflammation of right hand and wrist Status post fall Adult general medical exam Screening for colon cancer Screening for prostate cancer Cough BPH (benign prostatic hyperplasia) Family History Family History Mother Cancer Father Kidney agenesis Family history of problems with anesthesia: No Surgical History Surgical History History of colonoscopy (~06/15/21) History of tooth extraction History of root canal procedure History of Problems with Anesthesia: No Social History Social History Household Members: None Housing: Apartment Are you a primary doggy daycare activities director to a significant other at home: No Do you presently have visiting nurse or other home services: No Unable to assess alcohol history related to: Unable to respond Alcohol intake: former Comment: 1:1 Patient Tobacco Use Status: Never used Tobacco e-Cigarette/Vaping Use: Never Used Second Hand Smoke Exposure: No service: No Current occupational status: employed Sexual orientation: Straight/Heterosexual Cognitive needs: No Hearing needs: No Vision needs: No Meds Allergies Allergy/AdvReac Type Severity Reaction Status Date / Time No Known Allergies [NKA] Allergy Unknown NONE Verified 03/01/24 06:35 Exam Height,Weight and Vital Signs: Height 5 ft 10 in Weight 90.718 kg Last Vital Signs Temp 97.3 F 03/25/24 07:01 Pulse 75 03/25/24 07:01 Resp 16 03/25/24 07:01 BP 132/86 03/25/24 07:01 Pulse Ox 97 03/25/24 07:01 O2 Del Method Room Air 03/25/24 07:01 Airway Mallampati Class: III TM Dist: >3cm Neck ROM: Full Loose/Missing/Broken Teeth: Yes (Missing many teeth. Denies broken or loose teeth) Heart: RRR Lungs: CTAB Assessment and Plan Assessment Anesthesia Assessment: Anesthesia Plan Discussed and Chart Reviewed Final Anesthetic Review Family History of Problems with Anesthesia: No History of Problems with Anesthesia: No NPO: Yes (Cup of water about 4 hours ago) ASA Class: III Final Preanesthetic Review: No Changes in Pt Med Stat, Meds/Allgs Chart Reviewed, Consent Obtained/Reviewed and Anes Risks/Benef Reviewed Patient Risk: Intermediate Procedure Risk: Intermediate Assessment/Block/Sedation in SS: Assess/Block/Sedation-SS Anesthetic Plan Anesthetic Plan: GA Disposition: Standard PACU
--- NOTE | 2024-03-25 07:44 | HO.ECTPROC ---
ECT Procedure Note Diagnosis/Treatment Date of Service: 03/25/24 Diagnosis: Catatonia and Schizoaffective Disorder Previous ECT Date: 03/06/24 Treatment: Maintenance Interval Clinical Notes: The patient reported feeling much better, resolution of catatonia. No side effects with previous ECT ECT was done as usual, no complications, seizure was slightly longer than usual. He woke up well, no complications. Time: Total time managing care of this patient today _30___ minutes. ECT Settings Device: THYMATRON DGx Electrode Placement: Bitemporal Program/Pulse Width: 0.50 Energy Percent: 100 Seizure Duration By EEG (in seconds): 73 By Motor Observation (in seconds): 40 Medications Administration General Anesthetic: Etomidate (18) Muscle Relaxant: Succinylcholine (100) Ancillary Medications Anti-emetics: Zofran - Pre ECT Cardiovascular Medications: Glycopyrrolate (0.2) Airway Management Airway Management: Bag Mask Ventilation Treatment Recommendations No Changes Recommended: No change Pt Tolerated Procedure w/o Issue: Yes
== END 2024-03-25 09:59 | disposition home or self-care (01) ==
PROVIDERS: PCP Internal Medicine; Visit Provider Psychiatry & Neurology Psychiatry
PROC: (CPT 90870; principal; 2024-03-25 07:00)
DX: F20.2 Catatonic schizophrenia (principal); Z91.81 History of falling; I10 Essential (primary) hypertension; E11.9 Type 2 diabetes mellitus without complications; G47.30 Sleep apnea, unspecified; N40.0 Benign prostatic hyperplasia without lower urinary tract symptoms; Z79.899 Other long term (current) drug therapy
CPT/HCPCS: 90870; J0330; J1596; J2405; J2704

== ENCOUNTER → 2024-03-25 06:10 | Outpatient (BNV) | payer MEDICARE, MEDICAID, SELFPAY | PROVIDERS: PCP Internal Medicine; Visit Provider Psychiatry & Neurology Psychiatry | DX: F33.2 Major depressive disorder, recurrent severe without psychotic features (principal) | CPT/HCPCS: 90870 ==

== ENCOUNTER 2024-04-11 15:18 | Inpatient (IN) | payer MEDICARE, MEDICAID, SELFPAY ==
--- NOTE | 2024-04-11 | ECG_ITS ---
Test Reason : MED CLEAR Blood Pressure : */* mmHG Vent. Rate : 71 BPM Atrial Rate : 357 BPM P-R Int : * ms QRS Dur : 78 ms QT Int : 388 ms P-R-T Axes : 72 40 49 degrees QTcB Int : 421 ms Poor data quality Artefact noted Possible Normal sinus rhythm Abnormal ECG When compared with ECG of 13-Feb-2024 14:39, Poor data quality in current ECG precludes serial comparison Referred By: Richard Fischer Electronically Signed By: AUGUSTO RAYMUNDO MD
[2024-04-11 15:30] VITALS: BP 160/95; BP 164/91; PULSE 83; PULSE 99; RESP 16; TEMP 36.6; O2SAT 98; O2SAT 99; BMI 26.6
--- NOTE | 2024-04-11 15:48 | MHC.CARE ---
Addendum entered by Beth Dugan LCSW 04/11/24 16:11: Per [facility], Pt was not seen by their crisis team today. Original Note: CARE Team received a call from Dr. Beauchamp and Geovanna Rick who report that a [facility] RN who was visiting with Pt today had concerns of decompensation and contacted [facility]. Geovanna reports that she asked Pt several questions over the phone and Pt was minimally responsive. Pt replied yes when Geovanna asked Pt if he needed transport to [facility] ED. Per Dr. Beauchamp, it is planned that Pt is to start ECT tomorrow whether he is discharged or IPLOC and requests Pt to be NPO. POD RN aware of this and will notify the ED provider.
--- NOTE | 2024-04-11 16:10 | MHC.CARE ---
Per [facility] crisis, Pt was not seen today by their crisis team today.
[2024-04-11 16:11] VITALS: RESP 16
--- NOTE | 2024-04-11 17:08 | PC.NURSE ---
Patient unable to provide urine sample at this time
--- NOTE | 2024-04-11 17:58 | PC.NURSE ---
RE: med rec this RN completed med rec with pt history, patient unable to provide information regarding medications to this RN
--- NOTE | 2024-04-11 18:33 | PC.NURSE ---
This RN spoke to Sandra de santiago [facility] RN that follows with Benjamin jackman
[2024-04-11 18:38] LABS: MANUAL DIFF FLAG NO
[2024-04-11 18:41] LABS: White Blood Count 8.5 X10*3/uL (4.8-10.8)
[2024-04-11 18:42] LABS: Basophils Percent Auto 0.1 % (0-2); Hematocrit 39.3 % (42.0-52.0); Hemoglobin 12.8 g/dl (14.0-18.0); Imm Gran Abs Auto 0.08 X10*3/uL (0.00-0.03); Imm Gran Pct Auto 0.9 % (0.0-0.4); Lymphocytes Absolute Auto 1.8 X10*3/uL (1.2-4.9); Mean Corpuscular HGB Conc 32.6 g/dl (31.0-36.0); Mean Corpuscular Hemoglobin 28.4 pg (27.0-33.0); Mean Corpuscular Volume 87.3 fL (80.0-98.0); Mean Platelet Volume 10.4 fL (9.4-12.4); Monocytes Absolute Auto 0.6 X10*3/uL (0.1-1.2); Monocytes Percent Auto 7.1 % (2-11); Neutrophils Absolute Auto 6.1 x10*3/uL (2.0-8.3); Neutrophils Percent Auto 70.9 % (45-73); Platelet Count 224 X10*3/uL (160-400); Red Cell Distribution Width 13.4 % (11.0-16.0)
--- NOTE | 2024-04-11 18:47 | ED.PSYCH ---
HPI - Psych General Chief Complaint: Psychiatric Symptoms Stated Complaint: ?MENTAL HEALTH,[facility] WELL BEING CHECK BY [facility] Time Seen by Provider: 04/11/24 15:57 History of Present Illness ED Provider: Richard Fischer MD HPI Narrative: There was a checking call from outside providers patient was minimally responding verbally but acknowledged yes to coming by EMS. Known to staff here psychiatry has calmed down Related Data Home Medications ?Medication ?Instructions ?Recorded ?Confirmed benztropine 0.5 mg tablet 0.5 mg PO 04/11/24 Previous Rx's ?Medication ?Instructions ?Recorded clonazepam 0.5 mg tablet 0.5 mg PO BEDTIME #10 tabs 03/14/24 glycopyrrolate 1 mg tablet 0.5 mg (1/2 x 1 mg) PO BID #30 tabs 03/14/24 tamsulosin 0.4 mg capsule 0.4 mg PO BEDTIME #30 caps 03/14/24 Allergies Allergy/AdvReac Type Severity Reaction Status Date / Time No Known Allergies [NKA] Allergy Unknown NONE Verified 04/11/24 15:35 PMFSH Past Medical History Medical History Tardive dyskinesia Mild sleep apnea Nocturnal hypoxia Routine medical exam Joint inflammation of right hand and wrist Status post fall Adult general medical exam Screening for colon cancer Screening for prostate cancer Cough BPH (benign prostatic hyperplasia) Surgical History History of colonoscopy (~06/15/21) History of tooth extraction History of root canal procedure Family History Family History Mother Cancer Father Kidney agenesis Social History Social History Household Members: None Housing: Apartment Are you a primary director of primary care to a significant other at home: No Do you presently have visiting nurse or other home services: No Unable to assess alcohol history related to: Unable to respond Alcohol intake: former Comment: 1:1 Patient Tobacco Use Status: Never used Tobacco e-Cigarette/Vaping Use: Never Used Second Hand Smoke Exposure: No Advance Directives: No Advance Directives Information Provided: No service: No Current occupational status: employed Sexual orientation: Straight/Heterosexual Cognitive needs: No Hearing needs: No Vision needs: No Physical Exam Vital Signs: Vital Signs: Last Vital Signs Temp 97.8 F 04/11/24 15:30 Pulse 83 04/11/24 15:30 Resp 16 04/11/24 16:11 BP 160/95 H 04/11/24 15:30 Pulse Ox 99 04/11/24 15:30 O2 Del Method Room Air 04/11/24 15:30 BMI result Body Mass Index 26.6 Const: Other: EXAM: Gen: Awake, makes eye contact. Appears anxious or paranoid. Tracks me with his eyes but does not respond verbally. Head: Atraumatic Eyes: Anicteric, Normal conjunctiva. ENT: Moist mucosa, no pallor. ? Neck: Supple. Respiratory: Breathing comfortably, No distress.Clear to auscultation bilaterally, symmetric chest expansion, No wheeze, rales, ronchi. Cardiovascular: Regular rate and rhythm. No murmurs or rub. Well perfused periphery, warm extremities. No edema. ? Abdominal: Soft, no objective distension. No palpable masses or obvious organomegaly. No focal tenderness, no guarding, no rebound tenderness or other peritoneal findings. : No flank tenderness. Neuro: Alert. Gross movement of all extremities intact. ?Resting pill tremor of the right hand. Following some commands but will not respond verbally. Face is symmetric appears to move all of his extremities Psych: Presentation and response consistent with possible catatonia. Vital signs: See flowsheet Medical Decision Making Medical Decision Making [facility] Narrative: 58-year-old male known to psychiatry staff recently on geriatric psychiatric floor for prolonged period. History of tardive dyskinesia which may explain the patient's pill tremor, he has got schizoaffective disorder and appears to be decompensated with catatonia. We will get labs urine and based on my clinical assessment and vital signs we should be able to medically clear him unless unexpected lab result. Psychiatry plans for ECT tomorrow recommends NPO at this point. Consult Healthcare Provider Management of the patient was discussed with: Behavioral Health Provider Lab Data [facility] Lab Attestation statement: I reviewed the patient's lab results. 04/11/24 18:32 04/11/24 18:32 Labs: Lab Results 04/11/24 Range/Units 18:32 WBC 8.5 (4.8-10.8) X10*3/uL RBC 4.50 L (4.60-5.80) X10*6/uL Hgb 12.8 L (14.0-18.0) g/dl Hct 39.3 L (42.0-52.0) % MCV 87.3 (80.0-98.0) fL MCH 28.4 (27.0-33.0) pg MCHC 32.6 (31.0-36.0) g/dl RDW 13.4 (11.0-16.0) % Plt Count 224 D (160-400) X10*3/uL MPV 10.4 (9.4-12.4) fL Immature Gran % (Auto) 0.9 H (0.0-0.4) % Neut % (Auto) 70.9 (45-73) % Lymph % (Auto) 21.0 (20-40) % [place] % (Auto) 7.1 (2-11) % Eos % (Auto) 0.0 (0-4) % Baso % (Auto) 0.1 (0-2) % Lymph # (Auto) 1.8 (1.2-4.9) X10*3/uL [place] # (Auto) 0.6 (0.1-1.2) X10*3/uL Eos # (Auto) 0.0 (0.0-0.4) X10*3/uL Baso # (Auto) 0.0 (0.0-0.2) X10*3/uL Abs Immat Gran (auto) 0.08 H (0.00-0.03) X10*3/uL Absolute Neuts (auto) 6.1 (2.0-8.3) x10*3/uL Absolute Nucleated RBC 0.000 (0.0-0.012) X10*3/uL Nucleated RBC % (auto) 0.0 (0.0-0.2) /100WBC Sodium 143 (135-145) mmol/L Potassium 4.2 (3.3-5.1) mmol/L Chloride 110 H (96-108) mmol/L Carbon Dioxide 26 (22-29) mmol/L Anion Gap 11 L (12-20) BUN 21 H (9-16) mg/dL Creatinine 1.32 (0.5-1.4) mg/dL Estim Creat Clear Calc 59.5 Estimated GFR 55 Random Glucose 81 (60-115) mg/dL Calcium 9.1 (8.4-10.2) mg/dL Total Bilirubin 0.5 (0.0-1.0) mg/dL AST 19 (5-37) U/L ALT 12 (0-40) U/L Alkaline Phosphatase 56 (39-117) U/L Total Protein 7.4 (6.5-8.0) g/dL Albumin 3.9 (3.5-5.0) g/dL Ethyl Alcohol < 10 mg/dL Independent Interpretation I performed an independent interpretation of an: EKG Discharge Plan Discharge Clinical Impression: Schizoaffective disorder Patient Disposition: Admitted As Inpatient Interventions: Admission Worksheet (ED) Last Done: 04/11/24 23:10 Discharge Date/Time: 04/11/24 23:12
[2024-04-11 18:54] LABS: Alanine Aminotransferase 12 U/L (0-40); Albumin Level 3.9 g/dL (3.5-5.0); Alkaline Phosphatase 56 U/L (39-117); Anion Gap 11 (12-20); Aspartate Amino Transferase 19 U/L (5-37); Bilirubin Total 0.5 mg/dL (0.0-1.0); Blood Urea Nitrogen 21 mg/dL (9-16); Calcium 9.1 mg/dL (8.4-10.2); Carbon Dioxide 26 mmol/L (22-29); Chloride 110 mmol/L (96-108); Creatinine Clr Calc Pharmacy 59.5; Estimated Glomerular Filt Rate 55; Ethanol < 10 mg/dL; Glucose Random 81 mg/dL (60-115); Potassium 4.2 mmol/L (3.3-5.1); Sodium 143 mmol/L (135-145); Total Protein 7.4 g/dL (6.5-8.0)
--- NOTE | 2024-04-11 19:35 | PC.NURSE ---
patient appears to remain at rets
--- OUTSIDE RECORDS SUMMARY | 2024-04-11 21:16 | XMS_ITS | Clinical Summary ---
Author Organization Unknown Care Team Providers Care Mechanical Maintenance Foreman Name Role Phone VERONA MONTES DE OCA, BREN Unavailable Unavailab issa MORRISON RN, ANGELES Unavailable Unavailable CANDY RN, JOY Unavailable Unavailable NILAY CUEVAS, VERToi Unavailable Unavailable Payers Payer Name Policy Type Policy Number Effective Date Expira tion Date MEDICAID [facility] [id number] [place]ARE - [place] [id number] Problems Condition Name Condition Details Condition Category Status Onset Date Resolution Date Last Treatment Date Treating Clinician Comments CATATONIC SCHIZOPHRENI A Active 10-15 00:00: 00 TYPE 2 DIABETES MELLITUS WITHOUT COMPLICATION S Active 03-27 00:00: 00 [facility] (CURRENT) USE OF ORAL HYPOGLYCEMIC DRUGS Active [...] 100 mg tablet 05-18 00:00: 00 Yes [id number] 2.5 tablet EVERY PM 2.5 tablet EVERY PM (route: oral) Med Classific ation: Central Nervous System Agents lithium carbonate 300 mg tablet 04-16 00:00: 00 Yes [id number] 2 tablet EVERY PM 2 tablet EVERY PM (route: oral) Med Classific ation: Central Nervous System Agents lorazepam 2 mg tablet 05-18 00:00: 00 Yes [id number] 1 tablet 3x daily 1 tablet 3x daily (route: oral) Med Classific ation: Central Nervous System Agents metformin 500 mg tablet 05-15 00:00: 00 Yes [id number] 1 tablet EVERY AM 1 tablet EVERY AM (route: oral) Med Classific ation: Endocrine olanzapine 10 mg tablet 05-18 00:00: 00 Yes [id number] 1 tablet EVERY PM 1 tablet EVERY PM (route: oral) Med Classific ation: Central Nervous System Agents sertraline 100 mg tablet 04-30 00:00: 00 Yes [id number] 1.5 tablet EVERY AM 1.5 tablet EVERY AM (route: oral) Med Classific ation: Central Nervous System Agents Flomax 0.4 mg capsule 05-16 00:00: 00 Yes [id number] 1 capsule Every noon 1 capsule Every [...] CARE WILL BE ESTABLISHED THAT MEETS PATIENT'S SENIOR CARE NEEDS AND INCLUDES PATIENT GOAL FOR HOME [...] End Date/Time Encounter Type Admission Type Attending [facility] Care Department Encounter ID Discharge Date Discharge Status Discharge Condition Discharge Reason Percent Goals Met 2016-03-01 00:00:00 2022-06-13 00:00:00 Outpatient RECERTIFIC ATION NILAY SAULOToi [facility] [id number] 7526-03-20 00:00:00 DISCHARGED /TRANSFERR ED TO A SHORT-TERM [facility] REMAINS INPATIENT AT TIME OF DISCHARGE PER PHYSICIAN REQUEST 50.00
--- OUTSIDE RECORDS SUMMARY | 2024-04-11 21:16 | XMS_ITS | Clinical Summary ---
Author Organization Unknown Care Team Providers Care Mop Machine Operator Name Role Phone VERONA MONTES DE OCA, BREN Unavailable Unavailab issa MORRISON RN, ANGELES Unavailable Unavailable CANDY RN, JOY Unavailable Unavailable NILAY CUEVAS, VERToi Unavailable Unavailable Payers Payer Name Policy Type Policy Number Effective Date Expira tion Date MEDICAID [facility] [id number] [place] [id number] Problems Condition Name Condition Details Condition Category Status Onset Date Resolution Date Last Treatment Date Treating Clinician Comments CATATONIC SCHIZOPHRENI A Active 10-15 00:00: 00 TYPE 2 DIABETES MELLITUS WITHOUT COMPLICATION S Active 03-27 00:00: 00 [facility] (CURRENT) USE OF ORAL HYPOGLYCEMIC DRUGS Active [...] 100 mg tablet 05-18 00:00: 00 Yes [id number] 2.5 tablet EVERY PM 2.5 tablet EVERY PM (route: oral) Med Classific ation: Central Nervous System Agents lithium carbonate 300 mg tablet 04-16 00:00: 00 Yes [id number] 2 tablet EVERY PM 2 tablet EVERY PM (route: oral) Med Classific ation: Central Nervous System Agents lorazepam 2 mg tablet 05-18 00:00: 00 Yes [id number] 1 tablet 3x daily 1 tablet 3x daily (route: oral) Med Classific ation: Central Nervous System Agents metformin 500 mg tablet 05-15 00:00: 00 Yes [id number] 1 tablet EVERY AM 1 tablet EVERY AM (route: oral) Med Classific ation: Endocrine olanzapine 10 mg tablet 05-18 00:00: 00 Yes [id number] 1 tablet EVERY PM 1 tablet EVERY PM (route: oral) Med Classific ation: Central Nervous System Agents sertraline 100 mg tablet 04-30 00:00: 00 Yes [id number] 1.5 tablet EVERY AM 1.5 tablet EVERY AM (route: oral) Med Classific ation: Central Nervous System Agents Flomax 0.4 mg capsule 05-16 00:00: 00 Yes [id number] 1 capsule Every noon 1 capsule Every [...] OF THE HOSPITAL THROUGH NEXT EPISODE Goal 2022-05-26 Patient Goal - T O REMAIN AT HOME AND OUT OF THE HOSPITAL AND TO LOSE SOME WEIGHT THROUGH NEXT EPISODE Goal 2022-06-13 Patient Goal - T O REMAIN AT HOME AND OUT OF THE HOSPITAL AND TO LOSE SOME WEIGHT THROUGH NEXT EPISODE Goal 2020-10-01 Patient Goal - NOT TO BE HOS PITALIZED Goal 2022-03-29 Patient Goal - T O REMAIN AT HOME AND OUT OF THE HOSPITAL AND TO LOSE SOME WEIGHT THROUGH NEXT EPISODE Goal 2021-03-31 Patient Goal - NOT TO [...] CARE WILL BE ESTABLISHED THAT MEETS PATIENT'S FDC NEEDS AND INCLUDES PATIENT GOAL FOR HOME [...] End Date/Time Encounter Type Admission Type Attending Critical Access Hospital Care [facility] Care Department Encounter ID Discharge Date Discharge Status Discharge Condition Discharge Reason Percent Goals Met 2016-03-01 00:00:00 2022-06-13 00:00:00 Outpatient RECERTIFIC ATION [facility] [id number] 1950-03-20 00:00:00 DISCHARGED /TRANSFERR ED TO A SHORT-TERM [facility] FOR INPATIENT CARE REMAINS INPATIENT AT TIME OF DISCHARGE PER PHYSICIAN REQUEST 50.00
--- NOTE | 2024-04-11 22:50 | PHA.MEDREC ---
Addendum entered by Lor Mcgraw RP 04/11/24 22:52: reviewed by [facility], spoke to My - benztropine will need to be followed up on. Original Note: Pharmacy Consult ? Medication Reconciliation Pharmacy reviewed med rec done by nursing. Claims match what nurse confirmed on med rec.
[2024-04-11 23:15] VITALS: BP 168/88; PULSE 87; RESP 18; TEMP 37.1; O2SAT 98
[2024-04-11 23:16] VITALS: BP 164/84; RESP 18
--- NOTE | 2024-04-12 02:46 | PC.ADMIT ---
Pt arrived on the unit at 23:15 from ED POD for the treatment of Schizoaffective Disorder - depressive type with catatonic symptoms. Per nurse to nurse and crisis assessment pt has not been entirely med-compliant and sounded off - making odd statements when on the phone with his mental health worker. Pt presents as catatonic with a flat affect, thought-blocking, difficult to engage, only providing minimal yes/no answers. Benjamin is a high fall risk, NPO for tomorrow morning as he is going for ECT and has NKA. Skin check completed with no significant findings other than dry feet and some scratches on L arm. Utox not completed as pt would not provide a urine sample in the ED. He is 15' check with ULB.
[2024-04-12 03:30] VITALS: BMI 30.2
[2024-04-12 07:33] VITALS: BP 137/93; PULSE 71; RESP 16; TEMP 36.9; O2SAT 95
[2024-04-12 08:25] LABS: Estimated Average Glucose 111 mg/dL; Hemoglobin A1C 115.3823 umol/L; Hemoglobin A1c % 5.5 % (<6.0)
[2024-04-12 08:40] LABS: Cholesterol 149 mg/dL (<200); HDL Cholesterol 31 mg/dL (>40); LDL Cholesterol Calculated 101 mg/dL (<100); Magnesium 2.1 mg/dL (1.6-2.6); Triglycerides 88 mg/dL (<150)
[2024-04-12 08:58] LABS: Free T4 (Free Thyroxine) 1.35 ng/dL (0.71-1.85); Thyroid Stimulating Hormone 0.36 uIU/mL (0.32-4.0)
--- NOTE | 2024-04-12 08:59 | P.HPPS_ITS ---
HPI Chief Complaint: Schizoaffective Disorder HPI Past Psychiatric History: Inpatient: multiple in the past. h/o ECT for catatonia. OP: [facility] Past medication trials: clozaril, ativan, sertraline, olanzapine. [facility] Medical History Tardive dyskinesia Mild sleep apnea Nocturnal hypoxia Routine medical exam Joint inflammation of right hand and wrist Status post fall Adult general medical exam Screening for colon cancer Screening for prostate cancer Cough BPH (benign prostatic hyperplasia) Surgical History History of colonoscopy (~06/15/21) History of tooth extraction History of root canal procedure Family History: unknown Social History: lives independently, works, drives. apartment in [place]. Trauma History: unknown Diagnostics Vital Signs (24Hr): Vital Signs - 24 hr 04/11/24 15:30 04/11/24 16:11 04/11/24 23:15 Temperature 97.8 F 98.7 F Pulse Rate 83 87 Respiratory Rate 16 16 18 Blood Pressure 160/95 H 168/88 H Pulse Oximetry 99 98 Oxygen Delivery Method Room Air Room Air 04/11/24 23:16 04/12/24 07:33 Temperature 98.4 F Pulse Rate 71 Respiratory Rate 18 16 Blood Pressure 164/84 H 137/93 H Pulse Oximetry 95 Oxygen Delivery Method Room Air BMI result Body Mass Index 30.2 Labs 04/11/24 18:32 04/11/24 18:32 Labs: Laboratory Results - last 48 hr 04/11/24 04/12/24 18:32 08:04 WBC 8.5 RBC 4.50 L Hgb 12.8 L Hct 39.3 L MCV 87.3 MCH 28.4 MCHC 32.6 RDW 13.4 Plt Count 224 D MPV 10.4 Immature Gran % (Auto) 0.9 H Neut % (Auto) 70.9 Lymph % (Auto) 21.0 [place] % (Auto) 7.1 Eos % (Auto) 0.0 Baso % (Auto) 0.1 Lymph # (Auto) 1.8 [place] # (Auto) 0.6 Eos # (Auto) 0.0 Baso # (Auto) 0.0 Abs Immat Gran (auto) 0.08 H Absolute Neuts (auto) 6.1 Absolute Nucleated RBC 0.000 Nucleated RBC % (auto) 0.0 Sodium 143 Potassium 4.2 Chloride 110 H Carbon Dioxide 26 Anion Gap 11 L BUN 21 H Creatinine 1.32 Estim Creat Clear Calc 59.5 Estimated GFR 55 Random Glucose 81 Estimat Average Glucose 111 Hemoglobin A1c % 5.5 Calcium 9.1 Magnesium 2.1 Total Bilirubin 0.5 AST 19 ALT 12 Alkaline Phosphatase 56 Total Protein 7.4 Albumin 3.9 Triglycerides 88 Cholesterol 149 LDL Cholesterol, Calc 101 H HDL Cholesterol 31 L TSH 0.36 Free T4 1.35 Ethyl Alcohol < 10 Meds/Allergies Meds Home Medications ?Medication ?Instructions ?Recorded ?Confirmed ?Type benztropine 0.5 mg tablet 0.5 mg PO 04/11/24 History Allergies Allergies Allergy/AdvReac Type Severity Reaction Status Date / Time No Known Allergies [NKA] Allergy Unknown NONE Verified 04/11/24 15:35 Assessment & Plan Statement Statement: I have reviewed the history and physical and performed a pertinent examination on my patient. No changes have occurred unless specified. If the History and Physical was not performed prior to admission, the Hospitalist's service will be consulted for completing the admission physical. Time Spent With Patient Time: Total time managing care of this patient today ____ minutes.
--- NOTE | 2024-04-12 09:00 | ECG_ITS ---
Test Reason : ect repeat Blood Pressure : */* mmHG Vent. Rate : 75 BPM Atrial Rate : * BPM P-R Int : * ms QRS Dur : 76 ms QT Int : 366 ms P-R-T Axes : * 32 50 degrees QTcB Int : 408 ms Accelerated Junctional rhythm with Premature ventricular complexes or Fusion complexes Abnormal ECG When compared with ECG of 11-Apr-2024 20:26, Junctional rhythm has replaced Atrial flutter Referred By: Jennifer Prasad Electronically Signed By:
[2024-04-12 09:10] LABS: Folate 17.1 ng/mL (> or = 4.0); Vitamin B12 437 pg/mL (200-900)
--- NOTE | 2024-04-12 09:48 | PC.NURSE ---
Pt declined flu vaccine. Already immunized for this season
--- NOTE | 2024-04-12 11:10 | PHA.MEDREC ---
Pharmacy Consult ? Medication Reconciliation Pharmacy has reviewed the medication reconciliation done by nursing. Benztropine was left unconfirmed with no direction so I called [facility] pharmacy [phone], spoke to Flash (bacteriologist pharmaceutical) for direction benztropine 0.5 mg bid. I also reached out to nurse (France Cool) to see if patient can confirm the meds but she said pt is catatonic and unresponsive to questions . Med was confirmed as pharmacy claim.
--- NOTE | 2024-04-12 13:07 | HO.ECT-CONS ---
History of Present Illness Data of Consult Service Date: 04/12/24 Primary Care Provider: None Physician HPI Reason for consult: ECT risk stratification Pt is a 58-year-old male with a PMH significant for HTN, non insulin-dependent type 2 diabetes, BPH, schizoaffective disorder, and depression with catatonia admitted to [facility] after ?acting off baseline?. Hospitalist consult for ECT risk stratification. Pt seen and evaluated in his room where he is noted to be lying on his back, shaking, and in a semi catatonic state. Pt is able to follow commands such as moving arms and legs, but is limited in his responses to queries, with noted delayed response, one-word answers, and sometimes not responding at all. HPI is thus limited, though pt denies any acute medical issues or pain. This provider has seen pt before in a similar capacity for ECT risk stratification, and pt notes he has undergone ECT in the past multiple times without any apparent complications. Pt reports ECT has been helpful and beneficial. Pt has had multiple EKGs last night and this morning, all of which show artifact due to pt uncontrollably shaking. Computer readings show atrial flutter or junctional rhythm, though these are likely erroneous secondary to artifact. Lead V5 on EKG conducted 04/11/2024 shows normal sinus rhythm with QTc WNL at 421. Review of Systems Review of Systems: Pt has no acute medical complaints at this time [facility] Medical History Tardive dyskinesia Mild sleep apnea Nocturnal hypoxia Routine medical exam Joint inflammation of right hand and wrist Status post fall Adult general medical exam Screening for colon cancer Screening for prostate cancer Cough BPH (benign prostatic hyperplasia) Family History Mother Cancer Father Kidney agenesis Surgical History History of colonoscopy (~06/15/21) History of tooth extraction History of root canal procedure Social History Household Members: None Housing: Unknown / Unable to assess Are you a primary rn home care to a significant other at home: No Do you presently have visiting nurse or other home services: Yes Unable to assess alcohol history related to: Unable to respond Alcohol intake: former Comment: 1:1 Patient Tobacco Use Status: Never used Tobacco e-Cigarette/Vaping Use: Never Used Second Hand Smoke Exposure: No Use of substances other than those prescribed or required for medical reasons: Unknown Currently Displaying Signs/Symptoms of Drug Intoxication Withdrawal: No Advance Directives: No Advance Directives Information Provided: No Do you have thoughts of harming others: None Do you have a plan to hurt others: No Plan Recently lost weight without trying: No How much weight loss: Not applicable Eating poorly because of decreased appetite: No Nutrition screen score: 0 Nutrition Risks: No Nutritional Risk service: No Current occupational status: employed Sexual orientation: Straight/Heterosexual Cognitive needs: No Hearing needs: No Vision needs: No Meds Allergies Allergy/AdvReac Type Severity Reaction Status Date / Time No Known Allergies [NKA] Allergy Unknown NONE Verified 04/11/24 15:35 Active Medications: Current Medications Acetaminophen (Acetaminophen 325 Mg Tablet) 650 mg PO Q6H PRN PRN Reason: Headache/Pain Mild Scale (1-3) Al Hydroxide/Mg Hydroxide (Magnesium Hydrox/Alum Hydrox 30 Ml Oral.Susp) 30 ml PO Q6H PRN PRN Reason: Heartburn/Nausea Clonazepam (Clonazepam 0.5 Mg Tablet) 0.5 mg PO BEDTIME KRISTIN Glycopyrrolate (Glycopyrrolate 1 Mg Tablet) 0.5 mg PO BID [facility] Last Admin: 04/12/24 10:17 Dose: Not Given Hydroxyzine HCl (Hydroxyzine Hcl 25 Mg Tablet) 25 mg PO Q6H PRN PRN Reason: Anxiety Magnesium Hydroxide (Milk Of Magnesia 30 Ml Oral.Susp) 30 ml PO DAILY PRN PRN Reason: Constipation Tamsulosin HCl (Tamsulosin Hcl 0.4 Mg Capsule) 0.4 mg PO BEDTIME KRISTIN Trazodone HCl (Trazodone Hcl 50 Mg Tablet) 50 mg PO BEDTIME MRX1 PRN PRN Reason: Insomnia Home Medications ?Medication ?Instructions ?Recorded ?Confirmed ?Last Taken ?Type benztropine 0.5 mg tablet 0.5 mg PO BID 04/11/24 04/12/24 Unknown History Physical Exam Vital Signs and Narrative: Vital Signs: Last Vital Signs Temp 98.4 F 04/12/24 07:33 Pulse 71 04/12/24 07:33 Resp 16 04/12/24 07:33 BP 137/93 H 04/12/24 07:33 Pulse Ox 95 04/12/24 07:33 O2 Del Method Room Air 04/12/24 07:33 BMI result Body Mass Index 30.2 General: Awake and alert, in no acute distress Resp: CTA bilaterally CVS: S1, S2, RRR GI: +BS, NT, no distention Skin: Warm, dry Neuro: Cranial nerves II-XII grossly intact bilaterally. Motor grossly intact bilaterally. Extremities: No edema Psych: Pt semi catatonic, uncontrollably shaking especially right upper extremity. Capable of following commands and occasionally responding to questions with one-word answers. Results Labs 04/11/24 18:32 04/11/24 18:32 Labs: Laboratory Results - last 24 hr 04/11/24 04/12/24 18:32 08:04 MCV 87.3 MCH 28.4 MCHC 32.6 RDW 13.4 Plt Count 224 D MPV 10.4 Immature Gran % (Auto) 0.9 H Neut % (Auto) 70.9 Lymph % (Auto) 21.0 [place] % (Auto) 7.1 Eos % (Auto) 0.0 Baso % (Auto) 0.1 Lymph # (Auto) 1.8 [place] # (Auto) 0.6 Eos # (Auto) 0.0 Baso # (Auto) 0.0 Abs Immat Gran (auto) 0.08 H Absolute Neuts (auto) 6.1 Absolute Nucleated RBC 0.000 Nucleated RBC % (auto) 0.0 Anion Gap 11 L Estim Creat Clear Calc 59.5 Estimated GFR 55 Random Glucose 81 Estimat Average Glucose 111 Hemoglobin A1c % 5.5 Calcium 9.1 Magnesium 2.1 Total Bilirubin 0.5 AST 19 ALT 12 Alkaline Phosphatase 56 Total Protein 7.4 Albumin 3.9 Triglycerides 88 Cholesterol 149 LDL Cholesterol, Calc 101 H HDL Cholesterol 31 L Vitamin B12 437 Folate 17.1 TSH 0.36 Free T4 1.35 Ethyl Alcohol < 10 Assessment and Plan (1) Pre-op evaluation: Status: Acute Plan Pt is a 58-year-old male with a PMH significant for HTN, non insulin-dependent type 2 diabetes, BPH, schizoaffective disorder, and depression with catatonia admitted to [facility] after ?acting off baseline?. Hospitalist consult for ECT risk stratification. ECT risk stratification Patient with history of multiple prior ECT without apparent complications No apparent acute medical complaints, vitals reassuring EKG with artifact secondary to uncontrollable shaking, by at least one lead showing NSR, QTc WNL RCRI 0 points; no additional cardiac workup indicated Based on patient's history, exam, and EKG, there are no apparent contraindications for the planned procedure Thank you for allowing us to participate in the care of this patient. Signing off at this time. Please re-consult if any acute complaints or issues arise.
[2024-04-12 13:53] VITALS: BP 172/84; PULSE 91; RESP 16; TEMP 36.4; O2SAT 94
--- NOTE | 2024-04-12 13:55 | PC.ADMIT ---
Pt was transferred from M[facility] to S1, and arrived on this unit at 1330 via wheel chair. Pt is here on a 12b. Per crisis, several outpatient providers grew concerned about this patient, while he was living in his home, and receiving outpatient ECT. One of them asked him if he would like to have an ambulance come to his home for assistance, and pt stated yes . Pt is to continue ECT on 04/15/24. Pt is currently non-verbal and cooperative. He was given food and fluids after arriving on the unit, as he had been kept NPO with the anticipation of ECT. He has an upper body tremor, BL and was slightly incontinent of stool upon arriving on the unit.
--- NOTE | 2024-04-12 14:34 | HO.PSYADMNOT ---
HPI Date of Service: 04/12/24 Chief Complaint: Schizoaffective Disorder Sources of Information: patient interviewed, chart reviewed and crisis/core team assessment reviewed HPI Subjective Notes: [place] Warning Narrative: The patient is a 58-year-old male single, living by himself with several ancillary services such as [facility] case management, [facility] and outpatient services, very well known by this team since he was recently discharged from this facility after he became catatonic. The patient carries a diagnosis of schizoaffective disorder bipolar type and recently, 2 months ago he was admitted here for extended period of time where we affirmed the healthcare proxy so his father could sign him for ECT. The patient responded fairly well to ECT but recently he relapsed. According to the case managers of [facility], the patient was minimally responsive at his home and he agreed to come to the emergency room. In the emergency room, the patient was minimally responsive internally preoccupied with tremors compatible with tardive dyskinesia. He was assessed by the care team and transferring to this facility for psychiatric stabilization. On the intake interview the patient was eating by himself and he was internally preoccupied, unable to answer questions me, nearly catatonic. I am going to contact his father who is the healthcare proxy affirmed by the court. He was already seen by the hospitalist and cleared for ECT. Past Psychiatric History: Inpatient: multiple in the past. h/o ECT for catatonia. OP: [facility] Past medication trials: clozaril, ativan, sertraline, olanzapine. Medical Evaluation Reviewed: Yes [facility] Medical History Tardive dyskinesia Mild sleep apnea Nocturnal hypoxia Routine medical exam Joint inflammation of right hand and wrist Status post fall Adult general medical exam Screening for colon cancer Screening for prostate cancer Cough BPH (benign prostatic hyperplasia) Surgical History History of colonoscopy (~06/15/21) History of tooth extraction History of root canal procedure Family History: unknown Social History: lives independently, works, drives. apartment in [place]. Substance History: No history of substance abuse Trauma History: unknown Diagnostics Vital Signs (24Hr): Vital Signs - 24 hr 04/11/24 15:30 04/11/24 16:11 04/11/24 23:15 Temperature 97.8 F 98.7 F Pulse Rate 83 87 Respiratory Rate 16 16 18 Blood Pressure 160/95 H 168/88 H Pulse Oximetry 99 98 Oxygen Delivery Method Room Air Room Air 04/11/24 23:16 04/12/24 07:33 04/12/24 13:53 Temperature 98.4 F 97.5 F Pulse Rate 71 91 Respiratory Rate 18 16 16 Blood Pressure 164/84 H 137/93 H 172/84 H Pulse Oximetry 95 94 Oxygen Delivery Method Room Air Room Air BMI result Body Mass Index 30.2 Labs 04/11/24 18:32 04/11/24 18:32 Labs: Laboratory Results - last 48 hr 04/11/24 04/12/24 18:32 08:04 WBC 8.5 RBC 4.50 L Hgb 12.8 L Hct 39.3 L MCV 87.3 MCH 28.4 MCHC 32.6 RDW 13.4 Plt Count 224 D MPV 10.4 Immature Gran % (Auto) 0.9 H Neut % (Auto) 70.9 Lymph % (Auto) 21.0 [place] % (Auto) 7.1 Eos % (Auto) 0.0 Baso % (Auto) 0.1 Lymph # (Auto) 1.8 [place] # (Auto) 0.6 Eos # (Auto) 0.0 Baso # (Auto) 0.0 Abs Immat Gran (auto) 0.08 H Absolute Neuts (auto) 6.1 Absolute Nucleated RBC 0.000 Nucleated RBC % (auto) 0.0 Sodium 143 Potassium 4.2 Chloride 110 H Carbon Dioxide 26 Anion Gap 11 L BUN 21 H Creatinine 1.32 Estim Creat Clear Calc 59.5 Estimated GFR 55 Random Glucose 81 Estimat Average Glucose 111 Hemoglobin A1c % 5.5 Calcium 9.1 Magnesium 2.1 Total Bilirubin 0.5 AST 19 ALT 12 Alkaline Phosphatase 56 Total Protein 7.4 Albumin 3.9 Triglycerides 88 Cholesterol 149 LDL Cholesterol, Calc 101 H HDL Cholesterol 31 L Vitamin B12 437 Folate 17.1 TSH 0.36 Free T4 1.35 Ethyl Alcohol < 10 Meds/Allergies Meds Home Medications ?Medication ?Instructions ?Recorded ?Confirmed ?Type benztropine 0.5 mg tablet 0.5 mg PO BID 04/11/24 04/12/24 History Allergies Allergies Allergy/AdvReac Type Severity Reaction Status Date / Time No Known Allergies [NKA] Allergy Unknown NONE Verified 04/11/24 15:35 Mental Status Exam Mental Status Exam Patient Appearance: Appropriate and Unkempt Patient Orientation: Person Level of Consciousness: Awake and Obtunded Patient Behavior: Guarded and Passive Mood Description: Withdrawn Affect Description: Blunted Patient Cognition Impaired: Yes Ability to Follow Directions: Fair Speech Pattern: Impoverished, Monotone and Mumbled Hallucinations: None Delusions: Paranoid Ideation and Ideas of Reference Thought Process: Slowed Thinking Thought Content: positive for Poverty of Content and positive for Thought Blocking Judgement: Poor Assessment & Plan Assessment & Plan (1) Schizoaffective disorder: Status: Acute Code(s): F25.9 - Schizoaffective disorder, unspecified (2) Tardive dyskinesia: Status: Acute Code(s): G24.01 - Drug induced subacute dyskinesia Plan The patient is a 58-year-old male with a past history of schizoaffective disorder and catatonia who was readmitted due to relapsed on catatonic symptoms. The patient is a very poor historian but we know him very well since he was admitted here before. Plan 1. Gather collateral information, we are going to contact his father who is the healthcare proxy by court. 2. Continue with Clozaril and other antipsychotics. 3. Start Ativan 2 mg p.o. q.6 hours for catatonia. 4. ECT ordered as soon as possible. The patient is at this moment medically cleared. 5. 5 minute checks. Patient educated on: diagnosis, ECT and medical condition Informed Consent: further education needed Reason for continued inpatient stay Substantial Risk for: harm to self, inability to function, rapid decompensation and med/psych decompensation Statement Statement: I have reviewed the history and physical and performed a pertinent examination on my patient. No changes have occurred unless specified. If the History and Physical was not performed prior to admission, the Hospitalist's service will be consulted for completing the admission physical. Time Spent With Patient Time: Total time managing care of this patient today __45__ minutes.
[2024-04-12] MEDS: LORazepam 1 MG TABLET 2 MG PO ×2 (17:09→21:25)
[2024-04-12 19:57] VITALS: BP 129/65; PULSE 81; TEMP 36.3; O2SAT 95
[2024-04-12] MEDS: Tamsulosin HCL 0.4 MG CAPSULE PO (21:25)
[2024-04-12] MEDS: cloZAPine 25 MG TABLET PO (21:25)
[2024-04-12] MEDS: Glycopyrrolate 1 MG TABLET 0.5 MG PO (21:28)
[2024-04-13] MEDS: LORazepam 1 MG TABLET 2 MG PO ×4 (04:28→20:30)
--- NOTE | 2024-04-13 06:56 | P.PNPSI_ITS ---
Subjective Subjective Date of Service: 04/13/24 Reason For Visit: Schizoaffective Disorder Subjective Notes: Section 12B Interim History: The nursing staff reported the patient had been limited in his responses, with delayed response, tremors and psychomotor retardation. On interview the patient responds minimally, he is catatonic at this point. Mental Status Exam Mental Status Exam Patient Appearance: Appropriate Patient Orientation: Person and Situation Level of Consciousness: Awake and Appropriate Patient Behavior: Guarded and Passive Mood Description: Withdrawn Affect Description: Blunted Patient Cognition Impaired: Yes Ability to Follow Directions: Good Speech Pattern: Impoverished Hallucinations: Auditory Delusions: Paranoid Ideation and Ideas of Reference Thought Process: Distracted and Slowed Thinking Thought Content: positive for [place] and positive for Poverty of Content Judgement: Poor Diagnostics Vital Signs (24Hr): Vital Signs - 24 hr 04/12/24 07:33 04/12/24 13:53 04/12/24 19:57 Temperature 98.4 F 97.5 F 97.3 F Pulse Rate 71 91 81 Respiratory Rate 16 16 Blood Pressure 137/93 H 172/84 H 129/65 Pulse Oximetry 95 94 95 Oxygen Delivery Method Room Air Room Air Room Air BMI result Body Mass Index 30.2 Labs 04/11/24 18:32 04/11/24 18:32 Labs: Laboratory Results - last 48 hr 04/11/24 04/12/24 18:32 08:04 WBC 8.5 RBC 4.50 L Hgb 12.8 L Hct 39.3 L MCV 87.3 MCH 28.4 MCHC 32.6 RDW 13.4 Plt Count 224 D MPV 10.4 Immature Gran % (Auto) 0.9 H Neut % (Auto) 70.9 Lymph % (Auto) 21.0 [place] % (Auto) 7.1 Eos % (Auto) 0.0 Baso % (Auto) 0.1 Lymph # (Auto) 1.8 [place] # (Auto) 0.6 Eos # (Auto) 0.0 Baso # (Auto) 0.0 Abs Immat Gran (auto) 0.08 H Absolute Neuts (auto) 6.1 Absolute Nucleated RBC 0.000 Nucleated RBC % (auto) 0.0 Sodium 143 Potassium 4.2 Chloride 110 H Carbon Dioxide 26 Anion Gap 11 L BUN 21 H Creatinine 1.32 Estim Creat Clear Calc 59.5 Estimated GFR 55 Random Glucose 81 Estimat Average Glucose 111 Hemoglobin A1c % 5.5 Calcium 9.1 Magnesium 2.1 Total Bilirubin 0.5 AST 19 ALT 12 Alkaline Phosphatase 56 Total Protein 7.4 Albumin 3.9 Triglycerides 88 Cholesterol 149 LDL Cholesterol, Calc 101 H HDL Cholesterol 31 L Vitamin B12 437 Folate 17.1 TSH 0.36 Free T4 1.35 Ethyl Alcohol < 10 Medications Medications Current Medications Acetaminophen (Acetaminophen 325 Mg Tablet) 650 mg PO Q6H PRN PRN Reason: Headache/Pain Mild Scale (1-3) Al Hydroxide/Mg Hydroxide (Magnesium Hydrox/Alum Hydrox 30 Ml Oral.Susp) 30 ml PO Q6H PRN PRN Reason: Heartburn/Nausea Clozapine (Clozapine 25 Mg Tablet) 25 mg PO BEDTIME [facility] Last Admin: 04/12/24 21:25 Dose: 25 mg Glycopyrrolate (Glycopyrrolate 1 Mg Tablet) 0.5 mg PO BID [facility] Last Admin: 04/12/24 21:28 Dose: 0.5 mg Hydroxyzine HCl (Hydroxyzine Hcl 25 Mg Tablet) 25 mg PO Q6H PRN PRN Reason: Anxiety Lorazepam (Lorazepam 1 Mg Tablet) 2 mg PO Q6H [facility] Last Admin: 04/13/24 04:28 Dose: 2 mg Magnesium Hydroxide (Milk Of Magnesia 30 Ml Oral.Susp) 30 ml PO DAILY PRN PRN Reason: Constipation Tamsulosin HCl (Tamsulosin Hcl 0.4 Mg Capsule) 0.4 mg PO BEDTIME [facility] Last Admin: 04/12/24 21:25 Dose: 0.4 mg Trazodone HCl (Trazodone Hcl 50 Mg Tablet) 50 mg PO BEDTIME MRX1 PRN PRN Reason: Insomnia Allergies Allergies Allergy/AdvReac Type Severity Reaction Status Date / Time No Known Allergies [NKA] Allergy Unknown NONE Verified 04/11/24 15:35 Assessment & Plan Assessment & Plan (1) Schizoaffective disorder: Status: Acute Code(s): F25.9 - Schizoaffective disorder, unspecified (2) Tardive dyskinesia: Status: Acute Code(s): G24.01 - Drug induced subacute dyskinesia Plan The patient is a 58-year-old male with a past history of schizoaffective disorder and catatonia who was readmitted due to relapsed on catatonic symptoms. The patient is a very poor historian but we know him very well since he was admitted here before. Plan 1. Gather collateral information, we are going to contact his father who is the healthcare proxy by court. 2. Continue with Clozaril and other antipsychotics. 3. Start Ativan 2 mg p.o. q.6 hours for catatonia. 4. ECT ordered as soon as possible. The patient is at this moment medically cleared. 5. 5 minute checks. 6. Clozaril was restarted at 25 last night, we are going to increase up to 15 mg p.o. q.h.s. on April 13. Reason for continued inpatient stay Substantial Risk for: inability to function, rapid decompensation and med/psych decompensation Time Spent With Patient Time: Total time managing care of this patient today __20__ minutes.
[2024-04-13 08:10] VITALS: BP 130/77; PULSE 91; RESP 18; TEMP 36.6; O2SAT 94
[2024-04-13] MEDS: Glycopyrrolate 1 MG TABLET 0.5 MG PO ×2 (08:18→20:29)
--- NOTE | 2024-04-13 18:28 | PC.NURSE ---
Patient voided earlier today and was unable to give urine sample during this shift.
[2024-04-13 20:00] VITALS: BP 135/65; PULSE 66; RESP 16; TEMP 36.4; O2SAT 95
[2024-04-13] MEDS: Tamsulosin HCL 0.4 MG CAPSULE PO (20:29)
[2024-04-13] MEDS: cloZAPine 25 MG TABLET 50 MG PO (20:30)
[2024-04-14] MEDS: LORazepam 1 MG TABLET 2 MG PO ×4 (05:07→20:55)
[2024-04-14 07:56] LABS: MANUAL DIFF FLAG NO
[2024-04-14 08:00] VITALS: BP 148/79; PULSE 81; RESP 18; TEMP 35.9; O2SAT 96
[2024-04-14 08:00] LABS: Basophils Percent Auto 0.2 % (0-2); Hematocrit 40.3 % (42.0-52.0); Hemoglobin 13.2 g/dl (14.0-18.0); Imm Gran Abs Auto 0.11 X10*3/uL (0.00-0.03); Imm Gran Pct Auto 0.6 % (0.0-0.4); Lymphocytes Absolute Auto 1.6 X10*3/uL (1.2-4.9); Lymphocytes Percent Auto 9.2 % (20-40); Mean Corpuscular HGB Conc 32.8 g/dl (31.0-36.0); Mean Corpuscular Hemoglobin 28.8 pg (27.0-33.0); Mean Corpuscular Volume 87.8 fL (80.0-98.0); Mean Platelet Volume 11.1 fL (9.4-12.4); Monocytes Absolute Auto 1.4 X10*3/uL (0.1-1.2); Monocytes Percent Auto 7.8 % (2-11); Neutrophils Absolute Auto 14.4 x10*3/uL (2.0-8.3); Neutrophils Percent Auto 82.2 % (45-73); Platelet Count 197 X10*3/uL (160-400); Red Blood Count 4.59 X10*6/uL (4.60-5.80); Red Cell Distribution Width 13.7 % (11.0-16.0); White Blood Count 17.5 X10*3/uL (4.8-10.8)
[2024-04-14] MEDS: Glycopyrrolate 1 MG TABLET 0.5 MG PO ×2 (08:42→20:55)
--- NOTE | 2024-04-14 09:35 | HO.PSYCHPN ---
Subjective Subjective Date of Service: 04/14/24 Reason For Visit: Schizoaffective Disorder Subjective Notes: Section 12B Interim History: The nursing staff reported the patient had been responding with one-word response with a very long latency, nearly catatonic. He had been out in the milieu with some psychomotor retardation. On interview the patient was very slow, we continue with Ativan 2 mg p.o. q.6 hours and we are increasing tonight Clozaril up to 100. Mental Status Exam Mental Status Exam Patient Appearance: Appropriate Patient Orientation: Person and Situation Level of Consciousness: Awake and Obtunded Patient Behavior: Passive Mood Description: Withdrawn Affect Description: Blunted Patient Cognition Impaired: Yes Ability to Follow Directions: Fair Speech Pattern: Clear Hallucinations: None Delusions: Ideas of Reference Thought Process: Distracted and Slowed Thinking Thought Content: positive for [place] and positive for Poverty of Content Judgement: Poor Diagnostics Vital Signs (24Hr): Vital Signs - 24 hr 04/13/24 20:00 Temperature 97.6 F Pulse Rate 66 Respiratory Rate 16 Blood Pressure 135/65 Pulse Oximetry 95 Oxygen Delivery Method Room Air BMI result Body Mass Index 30.2 Labs 04/14/24 07:32 04/11/24 18:32 Labs: Laboratory Results - last 48 hr 04/14/24 07:32 WBC 17.5 H RBC 4.59 L Hgb 13.2 L Hct 40.3 L MCV 87.8 MCH 28.8 MCHC 32.8 RDW 13.7 Plt Count 197 MPV 11.1 Immature Gran % (Auto) 0.6 H Neut % (Auto) 82.2 H Lymph % (Auto) 9.2 L [place] % (Auto) 7.8 Eos % (Auto) 0.0 Baso % (Auto) 0.2 Lymph # (Auto) 1.6 [place] # (Auto) 1.4 H Eos # (Auto) 0.0 Baso # (Auto) 0.0 Abs Immat Gran (auto) 0.11 H Absolute Neuts (auto) 14.4 H Absolute Nucleated RBC 0.000 Nucleated RBC % (auto) 0.0 Medications Medications Current Medications Acetaminophen (Acetaminophen 325 Mg Tablet) 650 mg PO Q6H PRN PRN Reason: Headache/Pain Mild Scale (1-3) Al Hydroxide/Mg Hydroxide (Magnesium Hydrox/Alum Hydrox 30 Ml Oral.Susp) 30 ml PO Q6H PRN PRN Reason: Heartburn/Nausea Clozapine (Clozapine 25 Mg Tablet) 50 mg PO BEDTIME [facility] Last Admin: 04/13/24 20:30 Dose: 50 mg Glycopyrrolate (Glycopyrrolate 1 Mg Tablet) 0.5 mg PO BID [facility] Last Admin: 04/14/24 08:42 Dose: 0.5 mg Hydroxyzine HCl (Hydroxyzine Hcl 25 Mg Tablet) 25 mg PO Q6H PRN PRN Reason: Anxiety Lorazepam (Lorazepam 1 Mg Tablet) 2 mg PO Q6H [facility] Last Admin: 04/14/24 08:43 Dose: 2 mg Magnesium Hydroxide (Milk Of Magnesia 30 Ml Oral.Susp) 30 ml PO DAILY PRN PRN Reason: Constipation Tamsulosin HCl (Tamsulosin Hcl 0.4 Mg Capsule) 0.4 mg PO BEDTIME [facility] Last Admin: 04/13/24 20:29 Dose: 0.4 mg Trazodone HCl (Trazodone Hcl 50 Mg Tablet) 50 mg PO BEDTIME MRX1 PRN PRN Reason: Insomnia Allergies Allergies Allergy/AdvReac Type Severity Reaction Status Date / Time No Known Allergies [NKA] Allergy Unknown NONE Verified 04/11/24 15:35 Assessment & Plan Assessment & Plan (1) Schizoaffective disorder: Status: Acute Code(s): F25.9 - Schizoaffective disorder, unspecified (2) Tardive dyskinesia: Status: Acute Code(s): G24.01 - Drug induced subacute dyskinesia Plan The patient is a 58-year-old male with a past history of schizoaffective disorder and catatonia who was readmitted due to relapsed on catatonic symptoms. The patient is a very poor historian but we know him very well since he was admitted here before. Plan 1. Gather collateral information, we are going to contact his father who is the healthcare proxy by court. 2. Continue with Clozaril and other antipsychotics. 3. Start Ativan 2 mg p.o. q.6 hours for catatonia. 4. ECT ordered as soon as possible. The patient is at this moment medically cleared. 5. 5 minute checks. 6. Clozaril was restarted at 25 last night, we are going to increase up to 50 mg p.o. q.h.s. on April 13. On April 13 we increase it up to 100 mg p.o. q.h.s. Reason for continued inpatient stay Substantial Risk for: inability to function, rapid decompensation and med/psych decompensation Time Spent With Patient Time: Total time managing care of this patient today __20__ minutes.
[2024-04-14 10:48] LABS: Appearance Urine Clear; Color Urine Yellow; Glucose Urine UA Negative (Negative); Leukocyte Esterase Urine Negative (Negative); Nitrite Urine Negative (Negative); PH 5.5 (5.0-9.0); Urine Blood Negative (Negative); Urine Ketones Negative (Negative); Urine Protein Negative (Neg-Trace)
[2024-04-14 16:59] LABS: Amphetamine Screen Urine Not Detected (Not Detect); Barbiturates, Urine Not Detected (Not Detect); Benzodiazepines Screen Urine Not Detected (Not Detect); Buprenorphine Scr Not Detected (Not Detect); Cannabinoid Screen Urine Not Detected (Not Detect); Cocaine Screen Urine Not Detected (Not Detect); Fentanyl, urine Not Detected (Not Detect); Methadone Screen, Urine Not Detected (Not Detect); Opiate Screen Urine Not Detected (Not Detect); Oxycodone Screen Urine Not Detected (Not Detect); Phencyclidine Screen Urine Not Detected (Not Detect)
[2024-04-14 20:00] VITALS: BP 122/71; PULSE 84; RESP 16; TEMP 36.2; O2SAT 94
[2024-04-14] MEDS: Tamsulosin HCL 0.4 MG CAPSULE PO (20:55)
[2024-04-14] MEDS: cloZAPine 100 MG TABLET PO (20:56)
[2024-04-15] VITALS (12 sets, daily range): BP systolic 118–144; BP diastolic 58–80; PULSE 77–91; RESP 16–22; TEMP 35.7–37; O2SAT 93–96; BMI 30.2
[2024-04-15] MEDS: LORazepam 1 MG TABLET 2 MG PO ×4 (03:14→21:09)
--- NOTE | 2024-04-15 07:01 | P.CONAN_ITS ---
HPI - Anesthesia Eval Consult details Narrative: For ECT - catatonic schizophrenia PMFSH Active Problems Active Problems: All Active Problems Pre-op evaluation (Acute) Tardive dyskinesia (Acute) Schizoaffective disorder (Acute) Nocturnal hypoxia (Acute) Schizoaffective disorder, depressive type (Acute) Benign prostate hyperplasia (Acute) Essential hypertension (Acute) Right hip pain (Acute) Past Medical History Medical History Tardive dyskinesia Mild sleep apnea Nocturnal hypoxia Routine medical exam Joint inflammation of right hand and wrist Status post fall Adult general medical exam Screening for colon cancer Screening for prostate cancer Cough BPH (benign prostatic hyperplasia) Family History Family History Mother Cancer Father Kidney agenesis Family history of problems with anesthesia: No Surgical History Surgical History History of colonoscopy (~06/15/21) History of tooth extraction History of root canal procedure History of Problems with Anesthesia: No Social History Social History Household Members: None Housing: Unknown / Unable to assess Are you a primary pet care attendant to a significant other at home: No Do you presently have visiting nurse or other home services: Yes Unable to assess alcohol history related to: Unable to respond Alcohol intake: former Comment: 1:1 Patient Tobacco Use Status: Never used Tobacco e-Cigarette/Vaping Use: Never Used Second Hand Smoke Exposure: No Use of substances other than those prescribed or required for medical reasons: Unknown Currently Displaying Signs/Symptoms of Drug Intoxication Withdrawal: No Advance Directives: No Advance Directives Information Provided: No Do you have thoughts of harming others: None Do you have a plan to hurt others: No Plan Recently lost weight without trying: No How much weight loss: Not applicable Eating poorly because of decreased appetite: No Nutrition screen score: 0 Nutrition Risks: No Nutritional Risk service: No Current occupational status: employed Sexual orientation: Straight/Heterosexual Cognitive needs: No Hearing needs: No Vision needs: No Meds Allergies Allergy/AdvReac Type Severity Reaction Status Date / Time No Known Allergies [NKA] Allergy Unknown NONE Verified 04/11/24 15:35 Active Medications: Current Medications Acetaminophen (Acetaminophen 325 Mg Tablet) 650 mg PO Q6H PRN PRN Reason: Headache/Pain Mild Scale (1-3) Al Hydroxide/Mg Hydroxide (Magnesium Hydrox/Alum Hydrox 30 Ml Oral.Susp) 30 ml PO Q6H PRN PRN Reason: Heartburn/Nausea Clozapine (Clozapine 100 Mg Tablet) 100 mg PO BEDTIME [facility] Last Admin: 04/14/24 20:56 Dose: 100 mg Glycopyrrolate (Glycopyrrolate 1 Mg Tablet) 0.5 mg PO BID [facility] Last Admin: 04/14/24 20:55 Dose: 0.5 mg Hydroxyzine HCl (Hydroxyzine Hcl 25 Mg Tablet) 25 mg PO Q6H PRN PRN Reason: Anxiety Lorazepam (Lorazepam 1 Mg Tablet) 2 mg PO Q6H [facility] Last Admin: 04/15/24 03:14 Dose: 2 mg Magnesium Hydroxide (Milk Of Magnesia 30 Ml Oral.Susp) 30 ml PO DAILY PRN PRN Reason: Constipation Tamsulosin HCl (Tamsulosin Hcl 0.4 Mg Capsule) 0.4 mg PO BEDTIME [facility] Last Admin: 04/14/24 20:55 Dose: 0.4 mg Trazodone HCl (Trazodone Hcl 50 Mg Tablet) 50 mg PO BEDTIME MRX1 PRN PRN Reason: Insomnia Home Medications ?Medication ?Instructions ?Recorded ?Confirmed ?Last Taken ?Type benztropine 0.5 mg tablet 0.5 mg PO BID 04/11/24 04/12/24 Unknown History Exam Height,Weight and Vital Signs: Height 5 ft 9 in Weight 92.703 kg Last Vital Signs Temp 97.5 F 04/15/24 05:55 Pulse 91 04/15/24 05:55 Resp 18 04/15/24 05:55 BP 130/78 04/15/24 05:55 Pulse Ox 94 04/15/24 05:55 O2 Del Method Room Air 04/15/24 05:55 Pertinent Lab Results Pertinent Lab Results: Laboratory Tests 04/11/24 04/12/24 04/14/24 18:32 08:04 07:32 WBC 8.5 17.5 H RBC 4.50 L 4.59 L Hgb 12.8 L 13.2 L Hct 39.3 L 40.3 L MCV 87.3 87.8 MCH 28.4 28.8 MCHC 32.6 32.8 RDW 13.4 13.7 Plt Count 224 D 197 MPV 10.4 11.1 Immature Gran % (Auto) 0.9 H 0.6 H Neut % (Auto) 70.9 82.2 H Lymph % (Auto) 21.0 9.2 L [place] % (Auto) 7.1 7.8 Eos % (Auto) 0.0 0.0 Baso % (Auto) 0.1 0.2 Lymph # (Auto) 1.8 1.6 [place] # (Auto) 0.6 1.4 H Eos # (Auto) 0.0 0.0 Baso # (Auto) 0.0 0.0 Abs Immat Gran (auto) 0.08 H 0.11 H Absolute Neuts (auto) 6.1 14.4 H Absolute Nucleated RBC 0.000 0.000 Nucleated RBC % (auto) 0.0 0.0 Sodium 143 Potassium 4.2 Chloride 110 H Carbon Dioxide 26 Anion Gap 11 L BUN 21 H Creatinine 1.32 Estim Creat Clear Calc 59.5 Estimated GFR 55 Random Glucose 81 Estimat Average Glucose 111 Hemoglobin A1c % 5.5 Calcium 9.1 Magnesium 2.1 Total Bilirubin 0.5 AST 19 ALT 12 Alkaline Phosphatase 56 Total Protein 7.4 Albumin 3.9 Triglycerides 88 Cholesterol 149 LDL Cholesterol, Calc 101 H HDL Cholesterol 31 L Vitamin B12 437 Folate 17.1 TSH 0.36 Free T4 1.35 Urine Color Urine Appearance Urine pH Ur Specific [place] Urine Protein Urine Glucose (UA) Urine Ketones Urine Blood Urine Nitrite Ur Leukocyte Esterase Urine Opiates Screen Ur Buprenorphine Scrn Ur Oxycodone Screen Urine Methadone Screen Urine Fentanyl Screen Ur Barbiturates Screen Ur Phencyclidine Scrn Ur Amphetamines Screen U Benzodiazepines Scrn Urine Cocaine Screen U Marijuana (THC) Screen Ethyl Alcohol < 10 04/14/24 10:02 WBC RBC Hgb Hct MCV MCH MCHC RDW Plt Count MPV Immature Gran % (Auto) Neut % (Auto) Lymph % (Auto) [place] % (Auto) Eos % (Auto) Baso % (Auto) Lymph # (Auto) [place] # (Auto) Eos # (Auto) Baso # (Auto) Abs Immat Gran (auto) Absolute Neuts (auto) Absolute Nucleated RBC Nucleated RBC % (auto) Sodium Potassium Chloride Carbon Dioxide Anion Gap BUN Creatinine Estim Creat Clear Calc Estimated GFR Random Glucose Estimat Average Glucose Hemoglobin A1c % Calcium Magnesium Total Bilirubin AST ALT Alkaline Phosphatase Total Protein Albumin Triglycerides Cholesterol LDL Cholesterol, Calc HDL Cholesterol Vitamin B12 Folate TSH Free T4 Urine Color Yellow Urine Appearance Clear Urine pH 5.5 Ur Specific [place] 1.020 Urine Protein Negative Urine Glucose (UA) Negative Urine Ketones Negative Urine Blood Negative Urine Nitrite Negative Ur Leukocyte Esterase Negative Urine Opiates Screen Not Detected Ur Buprenorphine Scrn Not Detected Ur Oxycodone Screen Not Detected Urine Methadone Screen Not Detected Urine Fentanyl Screen Not Detected Ur Barbiturates Screen Not Detected Ur Phencyclidine Scrn Not Detected Ur Amphetamines Screen Not Detected U Benzodiazepines Scrn Not Detected Urine Cocaine Screen Not Detected U Marijuana (THC) Screen Not Detected Ethyl Alcohol Airway Mallampati Class: Patient Non-Cooperative Loose/Missing/Broken Teeth: Yes and Upper Heart: ok Lungs: ok. SpO2 94% ra. Assessment and Plan Assessment Anesthesia Assessment: Anesthesia Plan Discussed and Chart Reviewed Final Anesthetic Review Family History of Problems with Anesthesia: No History of Problems with Anesthesia: No NPO: Yes ASA Class: IV (pt is unresponsive.) Final Preanesthetic Review: No Changes in Pt Med Stat, Meds/Allgs Chart Reviewed, Consent Obtained/Reviewed and Anes Risks/Benef Reviewed Patient Risk: High Procedure Risk: Intermediate Anesthetic Plan Anesthetic Plan: GA and Agree w/ Assess. and Plan Disposition: Standard PACU
--- NOTE | 2024-04-15 07:02 | MHC.SHP ---
Pre-Procedural Eval Section A - 24 Hr Update-Section A only Date of Service: 04/15/24 The patient is an INPATIENT: Yes Changes since office visit: No Cold of Flu in the past 2 weeks, No New Medical Problems, No Changes in Medication and No Patient answered all questions The patient has been examined within 24 hours of the surgical procedure. The History & Physical has been completed within 30 days and I have reviewed it.: Yes Section B - Complete if H&P > 30 days Chief Complaint: Schizoaffective Disorder Details of Present Illness: Relapsed on catatonia Relevant Social History: None Present Medications: see Short Stay Collaborative assessment History of Previous Operations: No relevant previous surgery Allergies: Allergies Allergy/AdvReac Type Severity Reaction Status Date / Time No Known Allergies [NKA] Allergy Unknown NONE Verified 04/11/24 15:35 Review of Systems Sugical H&P ROS: Negative: Constitution, Cardiovascular, Respiratory, Neurological, Psychiatric, Hem-Onc, Allergic/Immunologic, Gastrointestinal, Genitourinary, Musculoskeletal, Integumentary, Endocrine and Eyes/Ears/Nose/Throat Exam Surgical H&P Exam: Normal: HEENT, Normal: Heart, Normal: Lungs, Normal: Extremities, Normal: Abdomen, Normal: Skin and Normal: Neurological Plan Diagnosis/Plan: Unchanged I have reviewed the history and physical and performed a pertinent physical examination on my patient. No changes have occurred unless specified. Time Spent With Patient Time: Total time managing care of this patient today __20__ minutes.
--- NOTE | 2024-04-15 07:20 | HO.ECTPROC ---
ECT Procedure Note Diagnosis/Treatment Date of Service: 04/15/24 Diagnosis: Catatonia and Schizoaffective Disorder Current Treatment Number: 1 Treatment: Series Interval Clinical Notes: The patient relapsed on catatonia, currenlty unable to verbalize his needs. ECT done as before, no complications. Time: Total time managing care of this patient today _30___ minutes. ECT Settings Device: THYMATRON DGx Electrode Placement: Bitemporal Program/Pulse Width: 0.50 Energy Percent: 100 Seizure Duration By EEG (in seconds): 49 By Motor Observation (in seconds): 14 Ancillary Medications Cardiovascular Medications: Glycopyrrolate (0.2) Miscillaneous Medications: Propofol and Other (Ativan 2 mg IVP after ECT for catatonia) Airway Management Airway Management: Bag Mask Ventilation Treatment Recommendations No Changes Recommended: No change Pt Tolerated Procedure w/o Issue: Yes
[2024-04-15] MEDS: LORazepam 2 MG/ML VIAL IVPUSH (07:26)
--- NOTE | 2024-04-15 09:41 | PC.NURSE ---
Unable to respond to vaccination status regarding flu. Unable to give consent to receive vaccine.
--- NOTE | 2024-04-15 10:48 | HO.PSYCHPN ---
Subjective Subjective Date of Service: 04/15/24 Reason For Visit: Schizoaffective Disorder Subjective Notes: Section 12B Interim History: The patient went to ECT today, he came back around 10:00. He was slightly sedated but he was able to answer with yes and no questions at bedside. He remains catatonic. Mental Status Exam Mental Status Exam Patient Appearance: Unkempt Patient Orientation: Person and Situation Level of Consciousness: Awake and Appropriate Patient Behavior: Guarded and Passive Mood Description: Withdrawn Affect Description: Blunted Patient Cognition Impaired: Yes Ability to Follow Directions: Good Speech Pattern: Clear Hallucinations: None Delusions: Ideas of Reference Thought Process: Distracted and Slowed Thinking Thought Content: positive for Poverty of Content and positive for Thought Blocking Judgement: Poor Diagnostics Vital Signs (24Hr): Vital Signs - 24 hr 04/14/24 20:00 04/15/24 05:55 04/15/24 06:20 Temperature 97.2 F 97.5 F 98.1 F Pulse Rate 84 91 83 Respiratory Rate 16 18 16 Blood Pressure 122/71 130/78 Pulse Oximetry 94 94 96 Oxygen Delivery Method Room Air Room Air Room Air Oxygen Flow Rate 04/15/24 07:29 04/15/24 07:30 04/15/24 07:35 Temperature 98.6 F Pulse Rate 89 91 91 Respiratory Rate 22 H 18 18 Blood Pressure 132/70 129/68 126/72 Pulse Oximetry 96 96 Oxygen Delivery Method Nasal Cannula Nasal Cannula Nasal Cannula Oxygen Flow Rate 2 2 2 04/15/24 07:40 04/15/24 07:45 04/15/24 08:00 Temperature 98.6 F Pulse Rate 91 91 89 Respiratory Rate 18 18 18 Blood Pressure 132/70 141/72 H 124/74 Pulse Oximetry 93 94 94 Oxygen Delivery Method Nasal Cannula Nasal Cannula Nasal Cannula Oxygen Flow Rate 2 2 2 04/15/24 08:00 04/15/24 08:15 04/15/24 09:21 Temperature 96.3 F L 96.3 F L Pulse Rate 81 90 81 Respiratory Rate 16 18 18 Blood Pressure 144/80 H 118/67 144/80 H Pulse Oximetry 96 94 Oxygen Delivery Method Room Air Nasal Cannula Oxygen Flow Rate 2 BMI result Body Mass Index 30.2 Labs 04/14/24 07:32 04/11/24 18:32 Labs: Laboratory Results - last 48 hr 04/14/24 04/14/24 07:32 10:02 WBC 17.5 H RBC 4.59 L Hgb 13.2 L Hct 40.3 L MCV 87.8 MCH 28.8 MCHC 32.8 RDW 13.7 Plt Count 197 MPV 11.1 Immature Gran % (Auto) 0.6 H Neut % (Auto) 82.2 H Lymph % (Auto) 9.2 L [place] % (Auto) 7.8 Eos % (Auto) 0.0 Baso % (Auto) 0.2 Lymph # (Auto) 1.6 [place] # (Auto) 1.4 H Eos # (Auto) 0.0 Baso # (Auto) 0.0 Abs Immat Gran (auto) 0.11 H Absolute Neuts (auto) 14.4 H Absolute Nucleated RBC 0.000 Nucleated RBC % (auto) 0.0 Urine Color Yellow Urine Appearance Clear Urine pH 5.5 Ur Specific [place] 1.020 Urine Protein Negative Urine Glucose (UA) Negative Urine Ketones Negative Urine Blood Negative Urine Nitrite Negative Ur Leukocyte Esterase Negative Urine Opiates Screen Not Detected Ur Buprenorphine Scrn Not Detected Ur Oxycodone Screen Not Detected Urine Methadone Screen Not Detected Urine Fentanyl Screen Not Detected Ur Barbiturates Screen Not Detected Ur Phencyclidine Scrn Not Detected Ur Amphetamines Screen Not Detected U Benzodiazepines Scrn Not Detected Urine Cocaine Screen Not Detected U Marijuana (THC) Screen Not Detected Medications Medications Current Medications Acetaminophen (Acetaminophen 325 Mg Tablet) 650 mg PO Q6H PRN PRN Reason: Headache/Pain Mild Scale (1-3) Al Hydroxide/Mg Hydroxide (Magnesium Hydrox/Alum Hydrox 30 Ml Oral.Susp) 30 ml PO Q6H PRN PRN Reason: Heartburn/Nausea Clozapine (Clozapine 100 Mg Tablet) 100 mg PO BEDTIME [facility] Last Admin: 04/14/24 20:56 Dose: 100 mg Glycopyrrolate (Glycopyrrolate 1 Mg Tablet) 0.5 mg PO BID [facility] Last Admin: 04/14/24 20:55 Dose: 0.5 mg Hydroxyzine HCl (Hydroxyzine Hcl 25 Mg Tablet) 25 mg PO Q6H PRN PRN Reason: Anxiety Lorazepam (Lorazepam 1 Mg Tablet) 2 mg PO Q6H [facility] Last Admin: 04/15/24 03:14 Dose: 2 mg Magnesium Hydroxide (Milk Of Magnesia 30 Ml Oral.Susp) 30 ml PO DAILY PRN PRN Reason: Constipation Naloxone HCl (Naloxone Hcl 0.4 Mg/Ml Vial) 0.04 mg IVPUSH Q5M PRN PRN Reason: Excessive sedation or RR < 8 Tamsulosin HCl (Tamsulosin Hcl 0.4 Mg Capsule) 0.4 mg PO BEDTIME [facility] Last Admin: 04/14/24 20:55 Dose: 0.4 mg Trazodone HCl (Trazodone Hcl 50 Mg Tablet) 50 mg PO BEDTIME MRX1 PRN PRN Reason: Insomnia Allergies Allergies Allergy/AdvReac Type Severity Reaction Status Date / Time No Known Allergies [NKA] Allergy Unknown NONE Verified 04/11/24 15:35 Assessment & Plan Assessment & Plan (1) Schizoaffective disorder: Status: Acute Code(s): F25.9 - Schizoaffective disorder, unspecified (2) Tardive dyskinesia: Status: Acute Code(s): G24.01 - Drug induced subacute dyskinesia Plan The patient is a 58-year-old male with a past history of schizoaffective disorder and catatonia who was readmitted due to relapsed on catatonic symptoms. The patient is a very poor historian but we know him very well since he was admitted here before. Plan 1. Gather collateral information, we are going to contact his father who is the healthcare proxy by court. 2. Continue with Clozaril and other antipsychotics. 3. Start Ativan 2 mg p.o. q.6 hours for catatonia. 4. ECT ordered as soon as possible. The patient is at this moment medically cleared. First ECT done on April 15 with no complications. 5. 5 minute checks. 6. Clozaril was restarted at 25 last night, we are going to increase up to 50 mg p.o. q.h.s. on April 13. On April 13 we increase it up to 100 mg p.o. q.h.s. Reason for continued inpatient stay Substantial Risk for: inability to function, rapid decompensation and med/psych decompensation Time Spent With Patient Time: Total time managing care of this patient today _20___ minutes.
[2024-04-15] MEDS: Glycopyrrolate 1 MG TABLET 0.5 MG PO ×2 (10:59→20:10)
[2024-04-15] MEDS: Tamsulosin HCL 0.4 MG CAPSULE PO (20:10)
[2024-04-15] MEDS: cloZAPine 100 MG TABLET PO (20:10)
[2024-04-16] MEDS: LORazepam 1 MG TABLET 2 MG PO ×3 (03:28→21:15)
[2024-04-16 08:00] VITALS: BP 148/76; PULSE 81; RESP 18; TEMP 36.8; O2SAT 95
--- NOTE | 2024-04-16 09:32 | P.PNPSI_ITS ---
Subjective Subjective Date of Service: 04/16/24 Reason For Visit: Schizoaffective Disorder Subjective Notes: Conditional Voluntary Healthcare Proxy: Yes Interim History: The nursing staff reported the patient slept most of the day after ECT, he was tired nonverbal. He slept 8 hours. The director of social work reported that her father signed the CV and [facility] will be contact. On interview, the patient remains still with catatonic symptoms. We will continue Ativan 2 mg p.o. t.i.d.. We will keep the Clozaril on 100 mg p.o. q.h.s.. Mental Status Exam Mental Status Exam Patient Appearance: Appropriate Patient Orientation: Person Level of Consciousness: Awake Patient Behavior: Guarded and Passive Mood Description: Withdrawn Affect Description: Blunted Patient Cognition Impaired: Yes Ability to Follow Directions: Fair Speech Pattern: Clear Hallucinations: None Delusions: Ideas of Reference Thought Process: Distracted and Slowed Thinking Thought Content: positive for [place], positive for Poverty of Content and positive for Thought Blocking Judgement: Poor Diagnostics Vital Signs (24Hr): Vital Signs - 24 hr 04/15/24 15:58 04/15/24 20:00 04/16/24 08:00 Temperature 98.0 F 97.8 F 98.2 F Pulse Rate 83 77 81 Respiratory Rate 16 18 Blood Pressure 134/68 119/58 L 148/76 H Pulse Oximetry 95 95 95 Oxygen Delivery Method Room Air Room Air Room Air BMI result Body Mass Index 30.2 Labs 04/14/24 07:32 04/11/24 18:32 Labs: Laboratory Results - last 48 hr 04/14/24 10:02 Urine Color Yellow Urine Appearance Clear Urine pH 5.5 Ur Specific [place] 1.020 Urine Protein Negative Urine Glucose (UA) Negative Urine Ketones Negative Urine Blood Negative Urine Nitrite Negative Ur Leukocyte Esterase Negative Urine Opiates Screen Not Detected Ur Buprenorphine Scrn Not Detected Ur Oxycodone Screen Not Detected Urine Methadone Screen Not Detected Urine Fentanyl Screen Not Detected Ur Barbiturates Screen Not Detected Ur Phencyclidine Scrn Not Detected Ur Amphetamines Screen Not Detected U Benzodiazepines Scrn Not Detected Urine Cocaine Screen Not Detected U Marijuana (THC) Screen Not Detected Medications Medications Current Medications Acetaminophen (Acetaminophen 325 Mg Tablet) 650 mg PO Q6H PRN PRN Reason: Headache/Pain Mild Scale (1-3) Al Hydroxide/Mg Hydroxide (Magnesium Hydrox/Alum Hydrox 30 Ml Oral.Susp) 30 ml PO Q6H PRN PRN Reason: Heartburn/Nausea Clozapine (Clozapine 100 Mg Tablet) 100 mg PO BEDTIME [facility] Last Admin: 04/15/24 20:10 Dose: 100 mg Glycopyrrolate (Glycopyrrolate 1 Mg Tablet) 0.5 mg PO BID [facility] Last Admin: 04/15/24 20:10 Dose: 0.5 mg Hydroxyzine HCl (Hydroxyzine Hcl 25 Mg Tablet) 25 mg PO Q6H PRN PRN Reason: Anxiety Lorazepam (Lorazepam 1 Mg Tablet) 2 mg PO Q6H [facility] Last Admin: 04/16/24 03:28 Dose: 2 mg Magnesium Hydroxide (Milk Of Magnesia 30 Ml Oral.Susp) 30 ml PO DAILY PRN PRN Reason: Constipation Naloxone HCl (Naloxone Hcl 0.4 Mg/Ml Vial) 0.04 mg IVPUSH Q5M PRN PRN Reason: Excessive sedation or RR < 8 Tamsulosin HCl (Tamsulosin Hcl 0.4 Mg Capsule) 0.4 mg PO BEDTIME [facility] Last Admin: 04/15/24 20:10 Dose: 0.4 mg Trazodone HCl (Trazodone Hcl 50 Mg Tablet) 50 mg PO BEDTIME MRX1 PRN PRN Reason: Insomnia Allergies Allergies Allergy/AdvReac Type Severity Reaction Status Date / Time No Known Allergies [NKA] Allergy Unknown NONE Verified 04/11/24 15:35 Assessment & Plan Assessment & Plan (1) Schizoaffective disorder: Status: Acute Code(s): F25.9 - Schizoaffective disorder, unspecified (2) Tardive dyskinesia: Status: Acute Code(s): G24.01 - Drug induced subacute dyskinesia Plan The patient is a 58-year-old male with a past history of schizoaffective disorder and catatonia who was readmitted due to relapsed on catatonic symptoms. The patient is a very poor historian but we know him very well since he was admitted here before. Plan 1. Gather collateral information, we are going to contact his father who is the healthcare proxy by court. 2. Continue with Clozaril and other antipsychotics. 3. Start Ativan 2 mg p.o. q.6 hours for catatonia. 4. ECT ordered as soon as possible. The patient is at this moment medically cleared. First ECT done on April 15 with no complications. 5. 5 minute checks. 6. Clozaril was restarted at 25 last night, we are going to increase up to 50 mg p.o. q.h.s. on April 13. On April 13 we increase it up to 100 mg p.o. q.h.s. Reason for continued inpatient stay Substantial Risk for: inability to function, rapid decompensation and med/psych decompensation Time Spent With Patient Time: Total time managing care of this patient today __20__ minutes.
[2024-04-16] MEDS: Glycopyrrolate 1 MG TABLET 0.5 MG PO ×2 (11:18→21:14)
[2024-04-16 20:00] VITALS: BP 125/59; PULSE 78; RESP 16; TEMP 36.6; O2SAT 93
[2024-04-16] MEDS: Tamsulosin HCL 0.4 MG CAPSULE PO (21:14)
[2024-04-16] MEDS: cloZAPine 100 MG TABLET PO (21:15)
[2024-04-17] VITALS (12 sets, daily range): BP systolic 125–156; BP diastolic 72–86; PULSE 75–88; RESP 15–18; TEMP 36.4–36.7; O2SAT 93–98; BMI 31.6
[2024-04-17] MEDS: LORazepam 1 MG TABLET 2 MG PO (05:16)
--- NOTE | 2024-04-17 07:12 | MHC.SHP ---
Pre-Procedural Eval Section A - 24 Hr Update-Section A only Date of Service: 04/17/24 The patient is an INPATIENT: Yes Changes since office visit: No Cold of Flu in the past 2 weeks, No New Medical Problems, No Changes in Medication and No Patient answered all questions The patient has been examined within 24 hours of the surgical procedure. The History & Physical has been completed within 30 days and I have reviewed it.: Yes Section B - Complete if H&P > 30 days Chief Complaint: Schizoaffective Disorder Allergies: Allergies Allergy/AdvReac Type Severity Reaction Status Date / Time No Known Allergies [NKA] Allergy Unknown NONE Verified 04/11/24 15:35 Plan I have reviewed the history and physical and performed a pertinent physical examination on my patient. No changes have occurred unless specified. Time Spent With Patient Time: Total time managing care of this patient today ____ minutes.
--- NOTE | 2024-04-17 07:22 | P.CONAN_ITS ---
[facility] Active Problems Active Problems: All Active Problems Pre-op evaluation (Acute) Tardive dyskinesia (Acute) Schizoaffective disorder (Acute) Nocturnal hypoxia (Acute) Schizoaffective disorder, depressive type (Acute) Benign prostate hyperplasia (Acute) Essential hypertension (Acute) Right hip pain (Acute) Past Medical History Medical History Tardive dyskinesia Mild sleep apnea Nocturnal hypoxia Routine medical exam Joint inflammation of right hand and wrist Status post fall Adult general medical exam Screening for colon cancer Screening for prostate cancer Cough BPH (benign prostatic hyperplasia) Family History Family History Mother Cancer Father Kidney agenesis Family history of problems with anesthesia: No Surgical History Surgical History History of colonoscopy (~06/15/21) History of tooth extraction History of root canal procedure History of Problems with Anesthesia: No Social History Social History Household Members: None Housing: Unknown / Unable to assess Are you a primary nursing care attendant to a significant other at home: No Do you presently have visiting nurse or other home services: Yes Unable to assess alcohol history related to: Unable to respond Alcohol intake: former Comment: 1:1 Patient Tobacco Use Status: Never used Tobacco e-Cigarette/Vaping Use: Never Used Second Hand Smoke Exposure: No Use of substances other than those prescribed or required for medical reasons: Unknown Currently Displaying Signs/Symptoms of Drug Intoxication Withdrawal: No Advance Directives: No Advance Directives Information Provided: No Do you have thoughts of harming others: None Do you have a plan to hurt others: No Plan Recently lost weight without trying: No How much weight loss: Not applicable Eating poorly because of decreased appetite: No Nutrition screen score: 0 Nutrition Risks: No Nutritional Risk service: No Current occupational status: employed Sexual orientation: Straight/Heterosexual Cognitive needs: No Hearing needs: No Vision needs: No Meds Allergies Allergy/AdvReac Type Severity Reaction Status Date / Time No Known Allergies [NKA] Allergy Unknown NONE Verified 04/11/24 15:35 Active Medications: Current Medications Acetaminophen (Acetaminophen 325 Mg Tablet) 650 mg PO Q6H PRN PRN Reason: Headache/Pain Mild Scale (1-3) Al Hydroxide/Mg Hydroxide (Magnesium Hydrox/Alum Hydrox 30 Ml Oral.Susp) 30 ml PO Q6H PRN PRN Reason: Heartburn/Nausea Clozapine (Clozapine 100 Mg Tablet) 100 mg PO BEDTIME [facility] Last Admin: 04/16/24 21:15 Dose: 100 mg Glycopyrrolate (Glycopyrrolate 1 Mg Tablet) 0.5 mg PO BID [facility] Last Admin: 04/16/24 21:14 Dose: 0.5 mg Hydroxyzine HCl (Hydroxyzine Hcl 25 Mg Tablet) 25 mg PO Q6H PRN PRN Reason: Anxiety Lorazepam (Lorazepam 1 Mg Tablet) 2 mg PO Q6H [facility] Last Admin: 04/17/24 05:16 Dose: 2 mg Magnesium Hydroxide (Milk Of Magnesia 30 Ml Oral.Susp) 30 ml PO DAILY PRN PRN Reason: Constipation Naloxone HCl (Naloxone Hcl 0.4 Mg/Ml Vial) 0.04 mg IVPUSH Q5M PRN PRN Reason: Excessive sedation or RR < 8 Tamsulosin HCl (Tamsulosin Hcl 0.4 Mg Capsule) 0.4 mg PO BEDTIME [facility] Last Admin: 04/16/24 21:14 Dose: 0.4 mg Trazodone HCl (Trazodone Hcl 50 Mg Tablet) 50 mg PO BEDTIME MRX1 PRN PRN Reason: Insomnia Home Medications ?Medication ?Instructions ?Recorded ?Confirmed ?Last Taken ?Type benztropine 0.5 mg tablet 0.5 mg PO BID 04/11/24 04/12/24 Unknown History Exam Height,Weight and Vital Signs: Height 5 ft 9 in Weight 97.2 kg Last Vital Signs Temp 97.5 F 04/17/24 06:19 Pulse 75 04/17/24 06:19 Resp 18 04/17/24 06:19 BP 126/72 04/17/24 06:19 Pulse Ox 94 04/17/24 06:19 O2 Del Method Room Air 04/17/24 06:19 O2 Flow Rate 2 04/17/24 06:19 Pertinent Lab Results Pertinent Lab Results: Laboratory Tests 04/11/24 04/12/24 04/14/24 18:32 08:04 07:32 WBC 8.5 17.5 H RBC 4.50 L 4.59 L Hgb 12.8 L 13.2 L Hct 39.3 L 40.3 L MCV 87.3 87.8 MCH 28.4 28.8 MCHC 32.6 32.8 RDW 13.4 13.7 Plt Count 224 D 197 MPV 10.4 11.1 Immature Gran % (Auto) 0.9 H 0.6 H Neut % (Auto) 70.9 82.2 H Lymph % (Auto) 21.0 9.2 L [place] % (Auto) 7.1 7.8 Eos % (Auto) 0.0 0.0 Baso % (Auto) 0.1 0.2 Lymph # (Auto) 1.8 1.6 [place] # (Auto) 0.6 1.4 H Eos # (Auto) 0.0 0.0 Baso # (Auto) 0.0 0.0 Abs Immat Gran (auto) 0.08 H 0.11 H Absolute Neuts (auto) 6.1 14.4 H Absolute Nucleated RBC 0.000 0.000 Nucleated RBC % (auto) 0.0 0.0 Sodium 143 Potassium 4.2 Chloride 110 H Carbon Dioxide 26 Anion Gap 11 L BUN 21 H Creatinine 1.32 Estim Creat Clear Calc 59.5 Estimated GFR 55 Random Glucose 81 Estimat Average Glucose 111 Hemoglobin A1c % 5.5 Calcium 9.1 Magnesium 2.1 Total Bilirubin 0.5 AST 19 ALT 12 Alkaline Phosphatase 56 Total Protein 7.4 Albumin 3.9 Triglycerides 88 Cholesterol 149 LDL Cholesterol, Calc 101 H HDL Cholesterol 31 L Vitamin B12 437 Folate 17.1 TSH 0.36 Free T4 1.35 Urine Color Urine Appearance Urine pH Ur Specific [place] Urine Protein Urine Glucose (UA) Urine Ketones Urine Blood Urine Nitrite Ur Leukocyte Esterase Urine Opiates Screen Ur Buprenorphine Scrn Ur Oxycodone Screen Urine Methadone Screen Urine Fentanyl Screen Ur Barbiturates Screen Ur Phencyclidine Scrn Ur Amphetamines Screen U Benzodiazepines Scrn Urine Cocaine Screen U Marijuana (THC) Screen Ethyl Alcohol < 10 04/14/24 10:02 WBC RBC Hgb Hct MCV MCH MCHC RDW Plt Count MPV Immature Gran % (Auto) Neut % (Auto) Lymph % (Auto) [place] % (Auto) Eos % (Auto) Baso % (Auto) Lymph # (Auto) [place] # (Auto) Eos # (Auto) Baso # (Auto) Abs Immat Gran (auto) Absolute Neuts (auto) Absolute Nucleated RBC Nucleated RBC % (auto) Sodium Potassium Chloride Carbon Dioxide Anion Gap BUN Creatinine Estim Creat Clear Calc Estimated GFR Random Glucose Estimat Average Glucose Hemoglobin A1c % Calcium Magnesium Total Bilirubin AST ALT Alkaline Phosphatase Total Protein Albumin Triglycerides Cholesterol LDL Cholesterol, Calc HDL Cholesterol Vitamin B12 Folate TSH Free T4 Urine Color Yellow Urine Appearance Clear Urine pH 5.5 Ur Specific [place] 1.020 Urine Protein Negative Urine Glucose (UA) Negative Urine Ketones Negative Urine Blood Negative Urine Nitrite Negative Ur Leukocyte Esterase Negative Urine Opiates Screen Not Detected Ur Buprenorphine Scrn Not Detected Ur Oxycodone Screen Not Detected Urine Methadone Screen Not Detected Urine Fentanyl Screen Not Detected Ur Barbiturates Screen Not Detected Ur Phencyclidine Scrn Not Detected Ur Amphetamines Screen Not Detected U Benzodiazepines Scrn Not Detected Urine Cocaine Screen Not Detected U Marijuana (THC) Screen Not Detected Ethyl Alcohol Airway Mallampati Class: III TM Dist: >3cm Neck ROM: Full Heart: RRR Lungs: CTA Assessment and Plan Assessment Anesthesia Assessment: Anesthesia Plan Discussed and Chart Reviewed Final Anesthetic Review Family History of Problems with Anesthesia: No History of Problems with Anesthesia: No NPO: Yes ASA Class: II Final Preanesthetic Review: Meds/Allgs Chart Reviewed, Consent Obtained/Reviewed and Anes Risks/Benef Reviewed Patient Risk: Low Procedure Risk: Intermediate Anesthetic Plan Anesthetic Plan: GA Disposition: Standard PACU
--- NOTE | 2024-04-17 07:22 | HO.ECTPROC ---
ECT Procedure Note Diagnosis/Treatment Date of Service: 04/17/24 Diagnosis: Catatonia and Schizoaffective Disorder Previous ECT Date: 04/15/24 Current Treatment Number: 2 Treatment: Series Interval Clinical Notes: The patient remains catatonic, unable to verbalize side effects with previous ECT. He got Ativan PO before and we gave him Flumazenil 0.2 ECT done as bitemperal 0.5 at 100%. Very short seizure not detected by EMG but he had seizure activity for 17s and motor for 10s. Woke up well. Gave him Ativan 2 mg IVP after the procedure for catatonia Time: Total time managing care of this patient today __30__ minutes. ECT Settings Device: THYMATRON DGx Electrode Placement: Bitemporal Program/Pulse Width: 0.50 Energy Percent: 100 Seizure Duration By EEG (in seconds): 0 (but there was seizure activity for 17s) By Motor Observation (in seconds): 10 Medications Administration General Anesthetic: Etomidate (18) Muscle Relaxant: Succinylcholine (100) Ancillary Medications Miscillaneous Medications: Flumazenil (0.2) Airway Management Airway Management: Bag Mask Ventilation Treatment Recommendations Notes: Increase Flumazenil to 0.5 Pt Tolerated Procedure w/o Issue: Yes
[2024-04-17] MEDS: LORazepam 2 MG/ML VIAL IVPUSH (08:00)
--- NOTE | 2024-04-17 11:26 | PC.ADMIT ---
Pt is currently sedated and has already had Ativan 4mg today. This sql report writer texted Dr Beauchamp to ask if he would like to place a hold on the Ativan 2mg dose that patient is scheduled to recieve, and he stated he would like it held.
--- NOTE | 2024-04-17 13:26 | P.PNPSI_ITS ---
Subjective Subjective Date of Service: 04/17/24 Reason For Visit: Schizoaffective Disorder Subjective Notes: Conditional Voluntary Interim History: The nursing staff reported the patient had delayed responses, hypoactive. The social worker school reported that the [facility] nurse reported that he was doing well but he decompensate in the last 2 weeks. Interview the patient remains catatonic he had ECT today. Mental Status Exam Mental Status Exam Patient Appearance: Appropriate Patient Orientation: Person Level of Consciousness: Awake Patient Behavior: Guarded and Passive Mood Description: Withdrawn Affect Description: Blunted Patient Cognition Impaired: Yes Ability to Follow Directions: Good Speech Pattern: Impoverished Hallucinations: None Delusions: Ideas of Reference Thought Process: Distracted and Slowed Thinking Thought Content: positive for Poverty of Content and positive for Thought Blocking Judgement: Fair Diagnostics Vital Signs (24Hr): Vital Signs - 24 hr 04/16/24 20:00 04/17/24 05:24 04/17/24 05:46 Temperature 98 F 97.5 F 97.5 F Pulse Rate 78 80 80 Respiratory Rate 16 16 16 Blood Pressure 125/59 L 134/76 134/76 Pulse Oximetry 93 93 93 Oxygen Delivery Method Room Air Room Air Oxygen Flow Rate 04/17/24 06:19 04/17/24 07:58 04/17/24 08:00 Temperature 97.5 F 97.8 F Pulse Rate 75 87 84 Respiratory Rate 18 18 18 Blood Pressure 126/72 145/75 H 156/83 H Pulse Oximetry 94 98 98 Oxygen Delivery Method Room Air Nasal Cannula Nasal Cannula Oxygen Flow Rate 2 2 2 04/17/24 08:05 04/17/24 08:10 04/17/24 08:25 Temperature Pulse Rate 85 88 84 Respiratory Rate 18 18 18 Blood Pressure 152/84 H 153/86 H 146/82 H Pulse Oximetry 98 98 93 Oxygen Delivery Method Nasal Cannula Nasal Cannula Room Air Oxygen Flow Rate 2 2 04/17/24 08:40 04/17/24 08:50 04/17/24 10:13 Temperature 98.1 F 98.1 F Pulse Rate 85 78 78 Respiratory Rate 18 15 15 Blood Pressure 148/80 H 125/79 125/79 Pulse Oximetry 93 95 95 Oxygen Delivery Method Room Air Room Air Oxygen Flow Rate BMI result Body Mass Index 31.6 Labs 04/14/24 07:32 04/11/24 18:32 Medications Medications Current Medications Acetaminophen (Acetaminophen 325 Mg Tablet) 650 mg PO Q6H PRN PRN Reason: Headache/Pain Mild Scale (1-3) Al Hydroxide/Mg Hydroxide (Magnesium Hydrox/Alum Hydrox 30 Ml Oral.Susp) 30 ml PO Q6H PRN PRN Reason: Heartburn/Nausea Clozapine (Clozapine 100 Mg Tablet) 100 mg PO BEDTIME [facility] Last Admin: 04/16/24 21:15 Dose: 100 mg Glycopyrrolate (Glycopyrrolate 1 Mg Tablet) 0.5 mg PO BID [facility] Last Admin: 04/16/24 21:14 Dose: 0.5 mg Hydroxyzine HCl (Hydroxyzine Hcl 25 Mg Tablet) 25 mg PO Q6H PRN PRN Reason: Anxiety Lorazepam (Lorazepam 1 Mg Tablet) 2 mg PO Q6H [facility] Last Admin: 04/17/24 11:28 Dose: Not Given Magnesium Hydroxide (Milk Of Magnesia 30 Ml Oral.Susp) 30 ml PO DAILY PRN PRN Reason: Constipation Naloxone HCl (Naloxone Hcl 0.4 Mg/Ml Vial) 0.04 mg IVPUSH Q5M PRN PRN Reason: Excessive sedation or RR < 8 Naloxone HCl (Naloxone Hcl 0.4 Mg/Ml Vial) 0.04 mg IVPUSH Q5M PRN PRN Reason: Excessive sedation or RR < 8 Ondansetron HCl (Ondansetron Odt 4 Mg Tab.Rapdis) 4 mg TRANSLINGU Q8H PRN PRN Reason: Nausea and Vomiting Tamsulosin HCl (Tamsulosin Hcl 0.4 Mg Capsule) 0.4 mg PO BEDTIME [facility] Last Admin: 04/16/24 21:14 Dose: 0.4 mg Trazodone HCl (Trazodone Hcl 50 Mg Tablet) 50 mg PO BEDTIME MRX1 PRN PRN Reason: Insomnia Allergies Allergies Allergy/AdvReac Type Severity Reaction Status Date / Time No Known Allergies [NKA] Allergy Unknown NONE Verified 04/11/24 15:35 Assessment & Plan Assessment & Plan (1) Schizoaffective disorder: Status: Acute Code(s): F25.9 - Schizoaffective disorder, unspecified (2) Tardive dyskinesia: Status: Acute Code(s): G24.01 - Drug induced subacute dyskinesia Plan The patient is a 58-year-old male with a past history of schizoaffective disorder and catatonia who was readmitted due to relapsed on catatonic symptoms. The patient is a very poor historian but we know him very well since he was admitted here before. Plan 1. Gather collateral information, we are going to contact his father who is the healthcare proxy by court. 2. Continue with Clozaril and other antipsychotics. 3. Start Ativan 2 mg p.o. q.6 hours for catatonia. 4. ECT ordered as soon as possible. The patient is at this moment medically cleared. First ECT done on April 15 with no complications. 5. 5 minute checks. 6. Clozaril was restarted at 25 last night, we are going to increase up to 50 mg p.o. q.h.s. on April 13. On April 13 we increase it up to 100 mg p.o. q.h.s. Reason for continued inpatient stay Substantial Risk for: inability to function, rapid decompensation and med/psych decompensation Time Spent With Patient Time: Total time managing care of this patient today __20__ minutes.
[2024-04-17] MEDS: Glycopyrrolate 1 MG TABLET 0.5 MG PO ×2 (14:36→20:29)
[2024-04-17] MEDS: Tamsulosin HCL 0.4 MG CAPSULE PO (20:29)
[2024-04-17] MEDS: traZODone HCL 50 MG TABLET PO (20:30)
[2024-04-17] MEDS: cloZAPine 100 MG TABLET PO (20:30)
[2024-04-18] MEDS: Glycopyrrolate 1 MG TABLET 0.5 MG PO ×2 (08:58→19:48)
[2024-04-18 09:00] VITALS: BP 148/72; PULSE 80; RESP 18; TEMP 36.6; O2SAT 95
--- NOTE | 2024-04-18 14:02 | P.PNPSI_ITS ---
Subjective Subjective Date of Service: 04/18/24 Reason For Visit: Schizoaffective Disorder Subjective Notes: Conditional Voluntary Interim History: The nursing staff reported the patient still we catatonic symptoms, with a very long latency of response with minimal answering yes or no. On interview the patient remains catatonic. Even though that he has catatonic he can eat and drink fluids. Mental Status Exam Mental Status Exam Patient Appearance: Appropriate Patient Orientation: Person and Situation Level of Consciousness: Awake and Appropriate Patient Behavior: Guarded and Passive Mood Description: Withdrawn Affect Description: Blunted Patient Cognition Impaired: Yes Ability to Follow Directions: Good Speech Pattern: Impoverished Hallucinations: None Delusions: Paranoid Ideation and Ideas of Reference Thought Process: Distracted and Slowed Thinking Thought Content: positive for [place] and positive for Loose Associations Judgement: Poor Diagnostics Vital Signs (24Hr): Vital Signs - 24 hr 04/17/24 20:00 04/18/24 09:00 Temperature 98.1 F 97.9 F Pulse Rate 81 80 Respiratory Rate 16 18 Blood Pressure 136/75 148/72 H Pulse Oximetry 94 95 Oxygen Delivery Method Room Air Room Air BMI result Body Mass Index 31.6 Labs 04/14/24 07:32 04/11/24 18:32 Medications Medications Current Medications Acetaminophen (Acetaminophen 325 Mg Tablet) 650 mg PO Q6H PRN PRN Reason: Headache/Pain Mild Scale (1-3) Al Hydroxide/Mg Hydroxide (Magnesium Hydrox/Alum Hydrox 30 Ml Oral.Susp) 30 ml PO Q6H PRN PRN Reason: Heartburn/Nausea Clozapine (Clozapine 100 Mg Tablet) 200 mg PO BEDTIME [facility] Glycopyrrolate (Glycopyrrolate 1 Mg Tablet) 0.5 mg PO BID [facility] Last Admin: 04/18/24 08:58 Dose: 0.5 mg Hydroxyzine HCl (Hydroxyzine Hcl 25 Mg Tablet) 25 mg PO Q6H PRN PRN Reason: Anxiety Lorazepam (Lorazepam 1 Mg Tablet) 2 mg PO Q6H [facility] Last Admin: 04/17/24 11:28 Dose: Not Given Magnesium Hydroxide (Milk Of Magnesia 30 Ml Oral.Susp) 30 ml PO DAILY PRN PRN Reason: Constipation Naloxone HCl (Naloxone Hcl 0.4 Mg/Ml Vial) 0.04 mg IVPUSH Q5M PRN PRN Reason: Excessive sedation or RR < 8 Naloxone HCl (Naloxone Hcl 0.4 Mg/Ml Vial) 0.04 mg IVPUSH Q5M PRN PRN Reason: Excessive sedation or RR < 8 Ondansetron HCl (Ondansetron Odt 4 Mg Tab.Rapdis) 4 mg TRANSLINGU Q8H PRN PRN Reason: Nausea and Vomiting Tamsulosin HCl (Tamsulosin Hcl 0.4 Mg Capsule) 0.4 mg PO BEDTIME [facility] Last Admin: 04/17/24 20:29 Dose: 0.4 mg Trazodone HCl (Trazodone Hcl 50 Mg Tablet) 50 mg PO BEDTIME MRX1 PRN PRN Reason: Insomnia Last Admin: 04/17/24 20:30 Dose: 50 mg Allergies Allergies Allergy/AdvReac Type Severity Reaction Status Date / Time No Known Allergies [NKA] Allergy Unknown NONE Verified 04/11/24 15:35 Assessment & Plan Assessment & Plan (1) Schizoaffective disorder: Status: Acute Code(s): F25.9 - Schizoaffective disorder, unspecified (2) Tardive dyskinesia: Status: Acute Code(s): G24.01 - Drug induced subacute dyskinesia Plan The patient is a 58-year-old male with a past history of schizoaffective disorder and catatonia who was readmitted due to relapsed on catatonic symptoms. The patient is a very poor historian but we know him very well since he was admitted here before. Plan 1. Gather collateral information, we are going to contact his father who is the healthcare proxy by court. 2. Continue with Clozaril and other antipsychotics. 3. Start Ativan 2 mg p.o. q.6 hours for catatonia. 4. ECT ordered as soon as possible. The patient is at this moment medically cleared. First ECT done on April 15 with no complications. He had 2nd ECT on the but with minimal response yet 5. 5 minute checks. 6. Clozaril was restarted at 25 last night, we are going to increase up to 50 mg p.o. q.h.s. on April 13. On April 13 we increase it up to 100 mg p.o. q.h.s. Reason for continued inpatient stay Substantial Risk for: inability to function, rapid decompensation and med/psych decompensation Time Spent With Patient Time: Total time managing care of this patient today __20__ minutes.
[2024-04-18 14:12] VITALS: BMI 31.2
[2024-04-18] MEDS: Tamsulosin HCL 0.4 MG CAPSULE PO (19:48)
[2024-04-18] MEDS: cloZAPine 100 MG TABLET 200 MG PO (19:49)
[2024-04-18 20:00] VITALS: BP 120/58; PULSE 71; RESP 17; TEMP 36.9; O2SAT 96
[2024-04-19] VITALS (10 sets, daily range): BP systolic 120–157; BP diastolic 59–87; PULSE 77–90; RESP 14–18; TEMP 36.1–37.2; O2SAT 95–100
--- NOTE | 2024-04-19 08:43 | P.PNPSI_ITS ---
Subjective Subjective Date of Service: 04/19/24 Reason For Visit: Schizoaffective Disorder Subjective Notes: Conditional Voluntary Interim History: Pt slept through the night. Pt sitting in wheelchair, minimally moving, mute. waxy flexibility. catatonic. Pending ECT later today. Mental Status Exam Mental Status Exam Narrative: Pt sitting in wheelchair, minimally moving, mute. waxy flexibility. catatonic Diagnostics Vital Signs (24Hr): Vital Signs - 24 hr 04/18/24 09:00 04/18/24 20:00 04/19/24 05:52 Temperature 97.9 F 98.5 F 97.6 F Pulse Rate 80 71 77 Respiratory Rate 18 17 16 Blood Pressure 148/72 H 120/58 L 120/59 L Pulse Oximetry 95 96 Oxygen Delivery Method Room Air Room Air 04/19/24 08:12 Temperature 97 F Pulse Rate 83 Respiratory Rate 18 Blood Pressure 129/76 Pulse Oximetry 97 Oxygen Delivery Method Room Air BMI result Body Mass Index 31.2 Labs 04/14/24 07:32 04/11/24 18:32 Medications Medications Current Medications Acetaminophen (Acetaminophen 325 Mg Tablet) 650 mg PO Q6H PRN PRN Reason: Headache/Pain Mild Scale (1-3) Al Hydroxide/Mg Hydroxide (Magnesium Hydrox/Alum Hydrox 30 Ml Oral.Susp) 30 ml PO Q6H PRN PRN Reason: Heartburn/Nausea Clozapine (Clozapine 100 Mg Tablet) 200 mg PO BEDTIME [facility] Last Admin: 04/18/24 19:49 Dose: 200 mg Glycopyrrolate (Glycopyrrolate 1 Mg Tablet) 0.5 mg PO BID [facility] Last Admin: 04/18/24 19:48 Dose: 0.5 mg Hydroxyzine HCl (Hydroxyzine Hcl 25 Mg Tablet) 25 mg PO Q6H PRN PRN Reason: Anxiety Lorazepam (Lorazepam 1 Mg Tablet) 2 mg PO Q6H [facility] Last Admin: 04/17/24 11:28 Dose: Not Given Magnesium Hydroxide (Milk Of Magnesia 30 Ml Oral.Susp) 30 ml PO DAILY PRN PRN Reason: Constipation Naloxone HCl (Naloxone Hcl 0.4 Mg/Ml Vial) 0.04 mg IVPUSH Q5M PRN PRN Reason: Excessive sedation or RR < 8 Naloxone HCl (Naloxone Hcl 0.4 Mg/Ml Vial) 0.04 mg IVPUSH Q5M PRN PRN Reason: Excessive sedation or RR < 8 Ondansetron HCl (Ondansetron Odt 4 Mg Tab.Rapdis) 4 mg TRANSLINGU Q8H PRN PRN Reason: Nausea and Vomiting Tamsulosin HCl (Tamsulosin Hcl 0.4 Mg Capsule) 0.4 mg PO BEDTIME [facility] Last Admin: 04/18/24 19:48 Dose: 0.4 mg Trazodone HCl (Trazodone Hcl 50 Mg Tablet) 50 mg PO BEDTIME MRX1 PRN PRN Reason: Insomnia Last Admin: 04/17/24 20:30 Dose: 50 mg Allergies Allergies Allergy/AdvReac Type Severity Reaction Status Date / Time No Known Allergies [NKA] Allergy Unknown NONE Verified 04/11/24 15:35 Assessment & Plan Assessment & Plan (1) Schizoaffective disorder: Status: Acute Code(s): F25.9 - Schizoaffective disorder, unspecified (2) Tardive dyskinesia: Status: Acute Code(s): G24.01 - Drug induced subacute dyskinesia Plan The patient is a 58-year-old male with a past history of schizoaffective disorder and catatonia who was readmitted due to relapsed on catatonic symptoms. The patient is a very poor historian but we know him very well since he was admitted here before. Plan 04/19/24- continues tx. ECT, clozaril. may have to schedule some ativan in between ECT Reason for continued inpatient stay Substantial Risk for: inability to function Time Spent With Patient Time: Total time managing care of this patient today ____ minutes.
--- NOTE | 2024-04-19 11:38 | PC.NURSE ---
Patient toileted and did not void, not incontinent at 1130. Patient then brought up to ECT for treatment at 1135. Patient is alert but catatonic and not talking.
--- NOTE | 2024-04-19 13:16 | HO.ANESPROP2 ---
HPI - Anesthesia Eval Consult details Narrative: 58yo male patient for ECT PMFSH Active Problems Active Problems: All Active Problems Pre-op evaluation (Acute) Tardive dyskinesia (Acute) Schizoaffective disorder (Acute) Nocturnal hypoxia (Acute) Schizoaffective disorder, depressive type (Acute) Benign prostate hyperplasia (Acute) Essential hypertension (Acute) Right hip pain (Acute) Past Medical History Medical History Tardive dyskinesia Mild sleep apnea Nocturnal hypoxia Routine medical exam Joint inflammation of right hand and wrist Status post fall Adult general medical exam Screening for colon cancer Screening for prostate cancer Cough BPH (benign prostatic hyperplasia) Family History Family History Mother Cancer Father Kidney agenesis Family history of problems with anesthesia: No Surgical History Surgical History History of colonoscopy (~06/15/21) History of tooth extraction History of root canal procedure History of Problems with Anesthesia: No Social History Social History Household Members: None Housing: Unknown / Unable to assess Are you a primary care management specialist to a significant other at home: No Do you presently have visiting nurse or other home services: Yes Unable to assess alcohol history related to: Unable to respond Alcohol intake: former Comment: 1:1 Patient Tobacco Use Status: Never used Tobacco e-Cigarette/Vaping Use: Never Used Second Hand Smoke Exposure: No Use of substances other than those prescribed or required for medical reasons: Unknown Currently Displaying Signs/Symptoms of Drug Intoxication Withdrawal: No Advance Directives: No Advance Directives Information Provided: No Do you have thoughts of harming others: None Do you have a plan to hurt others: No Plan Recently lost weight without trying: No How much weight loss: Not applicable Eating poorly because of decreased appetite: No Nutrition screen score: 0 Nutrition Risks: No Nutritional Risk service: No Current occupational status: employed Sexual orientation: Straight/Heterosexual Cognitive needs: No Hearing needs: No Vision needs: No Meds Allergies Allergy/AdvReac Type Severity Reaction Status Date / Time No Known Allergies [NKA] Allergy Unknown NONE Verified 04/11/24 15:35 Active Medications: Current Medications Acetaminophen (Acetaminophen 325 Mg Tablet) 650 mg PO Q6H PRN PRN Reason: Headache/Pain Mild Scale (1-3) Al Hydroxide/Mg Hydroxide (Magnesium Hydrox/Alum Hydrox 30 Ml Oral.Susp) 30 ml PO Q6H PRN PRN Reason: Heartburn/Nausea Clozapine (Clozapine 100 Mg Tablet) 200 mg PO BEDTIME [facility] Last Admin: 04/18/24 19:49 Dose: 200 mg Glycopyrrolate (Glycopyrrolate 1 Mg Tablet) 0.5 mg PO BID [facility] Last Admin: 04/18/24 19:48 Dose: 0.5 mg Hydroxyzine HCl (Hydroxyzine Hcl 25 Mg Tablet) 25 mg PO Q6H PRN PRN Reason: Anxiety Lorazepam (Lorazepam 1 Mg Tablet) 2 mg PO Q6H [facility] Last Admin: 04/17/24 11:28 Dose: Not Given Magnesium Hydroxide (Milk Of Magnesia 30 Ml Oral.Susp) 30 ml PO DAILY PRN PRN Reason: Constipation Naloxone HCl (Naloxone Hcl 0.4 Mg/Ml Vial) 0.04 mg IVPUSH Q5M PRN PRN Reason: Excessive sedation or RR < 8 Naloxone HCl (Naloxone Hcl 0.4 Mg/Ml Vial) 0.04 mg IVPUSH Q5M PRN PRN Reason: Excessive sedation or RR < 8 Ondansetron HCl (Ondansetron Odt 4 Mg Tab.Rapdis) 4 mg TRANSLINGU Q8H PRN PRN Reason: Nausea and Vomiting Tamsulosin HCl (Tamsulosin Hcl 0.4 Mg Capsule) 0.4 mg PO BEDTIME [facility] Last Admin: 04/18/24 19:48 Dose: 0.4 mg Trazodone HCl (Trazodone Hcl 50 Mg Tablet) 50 mg PO BEDTIME MRX1 PRN PRN Reason: Insomnia Last Admin: 04/17/24 20:30 Dose: 50 mg Home Medications ?Medication ?Instructions ?Recorded ?Confirmed ?Last Taken ?Type benztropine 0.5 mg tablet 0.5 mg PO BID 04/11/24 04/12/24 Unknown History Exam Height,Weight and Vital Signs: Height 5 ft 9 in Weight 95.889 kg Last Vital Signs Temp 97 F 04/19/24 11:58 Pulse 77 04/19/24 11:58 Resp 17 04/19/24 11:58 BP 126/73 04/19/24 11:58 Pulse Ox 97 04/19/24 11:58 O2 Del Method Room Air 04/19/24 11:58 O2 Flow Rate 2 04/17/24 08:10 Pertinent Lab Results Pertinent Lab Results: Laboratory Tests 04/11/24 04/12/24 04/14/24 18:32 08:04 07:32 WBC 8.5 17.5 H RBC 4.50 L 4.59 L Hgb 12.8 L 13.2 L Hct 39.3 L 40.3 L MCV 87.3 87.8 MCH 28.4 28.8 MCHC 32.6 32.8 RDW 13.4 13.7 Plt Count 224 D 197 MPV 10.4 11.1 Immature Gran % (Auto) 0.9 H 0.6 H Neut % (Auto) 70.9 82.2 H Lymph % (Auto) 21.0 9.2 L [place] % (Auto) 7.1 7.8 Eos % (Auto) 0.0 0.0 Baso % (Auto) 0.1 0.2 Lymph # (Auto) 1.8 1.6 [place] # (Auto) 0.6 1.4 H Eos # (Auto) 0.0 0.0 Baso # (Auto) 0.0 0.0 Abs Immat Gran (auto) 0.08 H 0.11 H Absolute Neuts (auto) 6.1 14.4 H Absolute Nucleated RBC 0.000 0.000 Nucleated RBC % (auto) 0.0 0.0 Sodium 143 Potassium 4.2 Chloride 110 H Carbon Dioxide 26 Anion Gap 11 L BUN 21 H Creatinine 1.32 Estim Creat Clear Calc 59.5 Estimated GFR 55 Random Glucose 81 Estimat Average Glucose 111 Hemoglobin A1c % 5.5 Calcium 9.1 Magnesium 2.1 Total Bilirubin 0.5 AST 19 ALT 12 Alkaline Phosphatase 56 Total Protein 7.4 Albumin 3.9 Triglycerides 88 Cholesterol 149 LDL Cholesterol, Calc 101 H HDL Cholesterol 31 L Vitamin B12 437 Folate 17.1 TSH 0.36 Free T4 1.35 Urine Color Urine Appearance Urine pH Ur Specific [place] Urine Protein Urine Glucose (UA) Urine Ketones Urine Blood Urine Nitrite Ur Leukocyte Esterase Urine Opiates Screen Ur Buprenorphine Scrn Ur Oxycodone Screen Urine Methadone Screen Urine Fentanyl Screen Ur Barbiturates Screen Ur Phencyclidine Scrn Ur Amphetamines Screen U Benzodiazepines Scrn Urine Cocaine Screen U Marijuana (THC) Screen Ethyl Alcohol < 10 01/19/25 10:02 WBC RBC Hgb Hct MCV MCH MCHC RDW Plt Count MPV Immature Gran % (Auto) Neut % (Auto) Lymph % (Auto) [place] % (Auto) Eos % (Auto) Baso % (Auto) Lymph # (Auto) [place] # (Auto) Eos # (Auto) Baso # (Auto) Abs Immat Gran (auto) Absolute Neuts (auto) Absolute Nucleated RBC Nucleated RBC % (auto) Sodium Potassium Chloride Carbon Dioxide Anion Gap BUN Creatinine Estim Creat Clear Calc Estimated GFR Random Glucose Estimat Average Glucose Hemoglobin A1c % Calcium Magnesium Total Bilirubin AST ALT Alkaline Phosphatase Total Protein Albumin Triglycerides Cholesterol LDL Cholesterol, Calc HDL Cholesterol Vitamin B12 Folate TSH Free T4 Urine Color Yellow Urine Appearance Clear Urine pH 5.5 Ur Specific [place] 1.020 Urine Protein Negative Urine Glucose (UA) Negative Urine Ketones Negative Urine Blood Negative Urine Nitrite Negative Ur Leukocyte Esterase Negative Urine Opiates Screen Not Detected Ur Buprenorphine Scrn Not Detected Ur Oxycodone Screen Not Detected Urine Methadone Screen Not Detected Urine Fentanyl Screen Not Detected Ur Barbiturates Screen Not Detected Ur Phencyclidine Scrn Not Detected Ur Amphetamines Screen Not Detected U Benzodiazepines Scrn Not Detected Urine Cocaine Screen Not Detected U Marijuana (THC) Screen Not Detected Ethyl Alcohol Airway Mallampati Class: III TM Dist: >3cm Neck ROM: Full Loose/Missing/Broken Teeth: Yes (Many missing teeth) Heart: RRR Lungs: CTAB Assessment and Plan Assessment Anesthesia Assessment: Anesthesia Plan Discussed and Chart Reviewed Final Anesthetic Review Family History of Problems with Anesthesia: No History of Problems with Anesthesia: No NPO: Yes ASA Class: III Final Preanesthetic Review: No Changes in Pt Med Stat, Meds/Allgs Chart Reviewed, Consent Obtained/Reviewed and Anes Risks/Benef Reviewed Patient Risk: Intermediate Procedure Risk: Intermediate Assessment/Block/Sedation in SS: Assess/Block/Sedation-SS Anesthetic Plan Anesthetic Plan: GA Disposition: Standard PACU
--- NOTE | 2024-04-19 13:18 | MHC.SHP ---
Pre-Procedural Eval Section A - 24 Hr Update-Section A only Date of Service: 04/19/24 The patient is an INPATIENT: Yes Changes since office visit: No Cold of Flu in the past 2 weeks, No New Medical Problems, No Changes in Medication and No Patient answered all questions The patient has been examined within 24 hours of the surgical procedure. The History & Physical has been completed within 30 days and I have reviewed it.: Yes Section B - Complete if H&P > 30 days Chief Complaint: Schizoaffective Disorder Allergies: Allergies Allergy/AdvReac Type Severity Reaction Status Date / Time No Known Allergies [NKA] Allergy Unknown NONE Verified 04/11/24 15:35 Review of Systems Sugical H&P ROS: Negative: Constitution, Respiratory and Gastrointestinal Plan Diagnosis/Plan: Unchanged I have reviewed the history and physical and performed a pertinent physical examination on my patient. No changes have occurred unless specified. Time Spent With Patient Time: Total time managing care of this patient today ____ minutes.
--- NOTE | 2024-04-19 13:45 | MHC.SHP ---
Pre-Procedural Eval Section A - 24 Hr Update-Section A only Date of Service: 04/19/24 The patient is an INPATIENT: Yes Changes since office visit: No Cold of Flu in the past 2 weeks, No New Medical Problems, No Changes in Medication and No Patient answered all questions The patient has been examined within 24 hours of the surgical procedure. The History & Physical has been completed within 30 days and I have reviewed it.: Yes Section B - Complete if H&P > 30 days Chief Complaint: Schizoaffective Disorder Details of Present Illness: remains depressed; talking little Allergies: Allergies Allergy/AdvReac Type Severity Reaction Status Date / Time No Known Allergies [NKA] Allergy Unknown NONE Verified 04/11/24 15:35 Plan Diagnosis/Plan: Unchanged I have reviewed the history and physical and performed a pertinent physical examination on my patient. No changes have occurred unless specified. Time Spent With Patient Time: Total time managing care of this patient today ____ minutes.
--- NOTE | 2024-04-19 13:46 | HO.ECTPROC ---
ECT Procedure Note Diagnosis/Treatment Date of Service: 04/19/24 Diagnosis: Catatonia Previous ECT Date: 04/17/24 Current Treatment Number: 3 Treatment: Series Interval Clinical Notes: remains catatonic, moving little, not speaking Time: Total time managing care of this patient today ____ minutes. ECT Settings Device: THYMATRON DGx Electrode Placement: Bitemporal Program/Pulse Width: 0.50 Energy Percent: 100 Seizure Duration By EEG (in seconds): 39 By Motor Observation (in seconds): 14 Medications Administration General Anesthetic: Etomidate (18) Muscle Relaxant: Succinylcholine (100) Ancillary Medications Miscillaneous Medications: Flumazenil (0.5) and Other (ativan 2mg (post)) Airway Management Airway Management: Bag Mask Ventilation Treatment Recommendations No Changes Recommended: No change Electrode Placement: Bitemporal Program/Pulse Width: 0.50 Energy Percent: 100 Notes: adequate seizure continue w/ tx plan Flumazenil 0.5 seemed to help Pt Tolerated Procedure w/o Issue: Yes
[2024-04-19] MEDS: LORazepam 2 MG/ML VIAL IVPUSH (14:09)
--- NOTE | 2024-04-19 14:11 | HO.ECTPROC ---
ECT Procedure Note Diagnosis/Treatment Date of Service: 04/19/24 Diagnosis: Catatonia Previous ECT Date: 04/17/24 Current Treatment Number: 3 Treatment: Series Interval Clinical Notes: remains catatonic; not moving, not talking Time: Total time managing care of this patient today ____ minutes. ECT Settings Device: THYMATRON DGx Electrode Placement: Bitemporal Program/Pulse Width: 0.50 Energy Percent: 100 Seizure Duration By EEG (in seconds): 39 By Motor Observation (in seconds): 14 Medications Administration General Anesthetic: Etomidate (18) Muscle Relaxant: Succinylcholine (100) Ancillary Medications Miscillaneous Medications: Flumazenil (0.5) Airway Management Airway Management: Bag Mask Ventilation Treatment Recommendations No Changes Recommended: No change Electrode Placement: Bitemporal Program/Pulse Width: 0.50 Energy Percent: 100 Notes: adequate seizure continue tx plan Flumazenil 0.5 seemed to help Pt Tolerated Procedure w/o Issue: Yes
[2024-04-19] MEDS: LORazepam 1 MG TABLET 2 MG PO ×2 (18:44→21:09)
[2024-04-19] MEDS: cloZAPine 100 MG TABLET 200 MG PO (21:08)
[2024-04-19] MEDS: Glycopyrrolate 1 MG TABLET 0.5 MG PO (21:09)
[2024-04-19] MEDS: Tamsulosin HCL 0.4 MG CAPSULE PO (21:09)
[2024-04-20] MEDS: LORazepam 1 MG TABLET 2 MG PO ×4 (02:51→21:07)
[2024-04-20 08:00] VITALS: BP 137/62; PULSE 76; RESP 18; O2SAT 97
[2024-04-20] MEDS: Glycopyrrolate 1 MG TABLET 0.5 MG PO ×2 (09:22→20:22)
--- NOTE | 2024-04-20 14:57 | HO.PSYCHPN ---
Subjective Subjective Date of Service: 04/20/24 Reason For Visit: Schizoaffective Disorder Interim History: Pt seen and reviewed with the team. Team report pt to be responsive to them with brief answers to questions. He is attentive when in milieu although with minimal participation Today he is in bed, awake, alert, non verbal however with appropriate eye contact and a brief, spontaneous smile Medication Compliance: Yes Side effects from medications: No Attending Groups: Intermittent Review of Systems Acute medical concerns: No Medical Review of Systems: unchanged Review of Systems Review of Systems Yes Unobtainable due to mental status Mental Status Exam Mental Status Exam Patient Appearance: Appropriate Patient Orientation: Person Level of Consciousness: Drowsy Patient Behavior: Passive, Fatigued, Distractible and Isolative Mood Description: Constricted Affect Description: Constricted Patient Cognition Impaired: Yes Ability to Follow Directions: Fair Speech Pattern: No Speech Memory Description: Remote Impaired Judgement: Fair Diagnostics Vital Signs (24Hr): Vital Signs - 24 hr 04/19/24 20:00 04/20/24 08:00 Temperature 97.9 F Pulse Rate 83 76 Respiratory Rate 16 18 Blood Pressure 134/74 137/62 Pulse Oximetry 96 97 Oxygen Delivery Method Room Air Room Air BMI result Body Mass Index 31.2 Labs 04/14/24 07:32 04/11/24 18:32 Medications Medications Current Medications Acetaminophen (Acetaminophen 325 Mg Tablet) 650 mg PO Q6H PRN PRN Reason: Headache/Pain Mild Scale (1-3) Al Hydroxide/Mg Hydroxide (Magnesium Hydrox/Alum Hydrox 30 Ml Oral.Susp) 30 ml PO Q6H PRN PRN Reason: Heartburn/Nausea Clozapine (Clozapine 100 Mg Tablet) 200 mg PO BEDTIME [facility] Last Admin: 04/19/24 21:08 Dose: 200 mg Glycopyrrolate (Glycopyrrolate 1 Mg Tablet) 0.5 mg PO BID [facility] Last Admin: 04/20/24 09:22 Dose: 0.5 mg Hydroxyzine HCl (Hydroxyzine Hcl 25 Mg Tablet) 25 mg PO Q6H PRN PRN Reason: Anxiety Lorazepam (Lorazepam 1 Mg Tablet) 2 mg PO Q6H [facility] Last Admin: 04/20/24 14:54 Dose: 2 mg Magnesium Hydroxide (Milk Of Magnesia 30 Ml Oral.Susp) 30 ml PO DAILY PRN PRN Reason: Constipation Ondansetron HCl (Ondansetron Odt 4 Mg Tab.Rapdis) 4 mg TRANSLINGU Q8H PRN PRN Reason: Nausea and Vomiting Tamsulosin HCl (Tamsulosin Hcl 0.4 Mg Capsule) 0.4 mg PO BEDTIME [facility] Last Admin: 04/19/24 21:09 Dose: 0.4 mg Trazodone HCl (Trazodone Hcl 50 Mg Tablet) 50 mg PO BEDTIME MRX1 PRN PRN Reason: Insomnia Last Admin: 04/17/24 20:30 Dose: 50 mg Allergies Allergies Allergy/AdvReac Type Severity Reaction Status Date / Time No Known Allergies [NKA] Allergy Unknown NONE Verified 04/11/24 15:35 Assessment & Plan Assessment & Plan (1) Schizoaffective disorder: Status: Acute Code(s): F25.9 - Schizoaffective disorder, unspecified (2) Tardive dyskinesia: Status: Acute Code(s): G24.01 - Drug induced subacute dyskinesia Plan The patient is a 58-year-old male with a past history of schizoaffective disorder and catatonia who was readmitted due to relapsed on catatonic symptoms. The patient is a very poor historian but we know him very well since he was admitted here before. Plan 04/19/24- continues tx. ECT, clozaril. may have to schedule some ativan in between ECT 04/20/24- Continue plan of care. Reason for continued inpatient stay Substantial Risk for: rapid decompensation and med/psych decompensation Time Spent With Patient Time: Total time managing care of this patient today ____ minutes.
[2024-04-20 19:52] VITALS: BP 120/66; PULSE 84; TEMP 36.9; O2SAT 97
[2024-04-20] MEDS: cloZAPine 100 MG TABLET 200 MG PO (20:22)
[2024-04-20] MEDS: Tamsulosin HCL 0.4 MG CAPSULE PO (20:23)
[2024-04-21] MEDS: LORazepam 1 MG TABLET 2 MG PO ×3 (02:57→19:53)
[2024-04-21 08:00] VITALS: BP 152/61; PULSE 93; RESP 18; TEMP 36.1; O2SAT 97
--- NOTE | 2024-04-21 08:42 | HO.PSYCHPN ---
Subjective Subjective Date of Service: 04/21/24 Reason For Visit: Schizoaffective Disorder Interim History: Pt seen, discussed with team. Team reports they have seen some improvement post ECT. Pt doing some simple things such as choosing his milieu activities, more attentive to team and peers. Today, pt is sleeping-team has held a.m. Lorazepam for sedation. Medication Compliance: Yes Side effects from medications: Yes (sedation) Attending Groups: Intermittent Review of Systems Acute medical concerns: No BP high this a.m. 152/61. Team is monitoring Medical Review of Systems: unchanged Review of Systems Review of Systems Yes Unobtainable due to mental status Mental Status Exam Mental Status Exam Narrative: sleeping this a.m. Diagnostics Vital Signs (24Hr): Vital Signs - 24 hr 04/20/24 19:52 Temperature 98.4 F Pulse Rate 84 Blood Pressure 120/66 Pulse Oximetry 97 Oxygen Delivery Method Room Air BMI result Body Mass Index 31.2 Labs 04/14/24 07:32 04/11/24 18:32 Medications Medications Current Medications Acetaminophen (Acetaminophen 325 Mg Tablet) 650 mg PO Q6H PRN PRN Reason: Headache/Pain Mild Scale (1-3) Al Hydroxide/Mg Hydroxide (Magnesium Hydrox/Alum Hydrox 30 Ml Oral.Susp) 30 ml PO Q6H PRN PRN Reason: Heartburn/Nausea Clozapine (Clozapine 100 Mg Tablet) 200 mg PO BEDTIME [facility] Last Admin: 04/20/24 20:22 Dose: 200 mg Glycopyrrolate (Glycopyrrolate 1 Mg Tablet) 0.5 mg PO BID [facility] Last Admin: 04/20/24 20:22 Dose: 0.5 mg Hydroxyzine HCl (Hydroxyzine Hcl 25 Mg Tablet) 25 mg PO Q6H PRN PRN Reason: Anxiety Lorazepam (Lorazepam 1 Mg Tablet) 2 mg PO Q6H [facility] Last Admin: 04/21/24 02:57 Dose: 2 mg Magnesium Hydroxide (Milk Of Magnesia 30 Ml Oral.Susp) 30 ml PO DAILY PRN PRN Reason: Constipation Ondansetron HCl (Ondansetron Odt 4 Mg Tab.Rapdis) 4 mg TRANSLINGU Q8H PRN PRN Reason: Nausea and Vomiting Tamsulosin HCl (Tamsulosin Hcl 0.4 Mg Capsule) 0.4 mg PO BEDTIME [facility] Last Admin: 04/20/24 20:23 Dose: 0.4 mg Trazodone HCl (Trazodone Hcl 50 Mg Tablet) 50 mg PO BEDTIME MRX1 PRN PRN Reason: Insomnia Last Admin: 04/17/24 20:30 Dose: 50 mg Allergies Allergies Allergy/AdvReac Type Severity Reaction Status Date / Time No Known Allergies [NKA] Allergy Unknown NONE Verified 04/11/24 15:35 Assessment & Plan Assessment & Plan (1) Schizoaffective disorder: Status: Acute Code(s): F25.9 - Schizoaffective disorder, unspecified (2) Tardive dyskinesia: Status: Acute Code(s): G24.01 - Drug induced subacute dyskinesia Plan The patient is a 58-year-old male with a past history of schizoaffective disorder and catatonia who was readmitted due to relapsed on catatonic symptoms. The patient is a very poor historian but we know him very well since he was admitted here before. Plan 04/19/24- continues tx. ECT, clozaril. may have to schedule some ativan in between ECT 04/20/24- Continue plan of care. 04/21/24- continue tx Reason for continued inpatient stay Substantial Risk for: rapid decompensation Time Spent With Patient Time: Total time managing care of this patient today ____ minutes.
[2024-04-21 08:47] LABS: Neut%MD 65.8 %; Neutrophils Absolute Auto 4.4 x10*3/uL (2.0-8.3); WBCANC 6.7 X10*3/uL
--- NOTE | 2024-04-21 10:33 | PC.NURSE ---
Glycopyrrolate and Lorazepam not given at am d/t patient asleep. Marquita visited the unit and notified.
[2024-04-21 13:00] VITALS: BP 133/61; PULSE 88; RESP 18
--- NOTE | 2024-04-21 13:57 | PC.NURSE ---
BP re-check at 1PM 133/61, P 88.
[2024-04-21] MEDS: cloZAPine 100 MG TABLET 200 MG PO (19:51)
[2024-04-21] MEDS: Glycopyrrolate 1 MG TABLET 0.5 MG PO (19:51)
[2024-04-21] MEDS: Tamsulosin HCL 0.4 MG CAPSULE PO (19:51)
[2024-04-21 20:00] VITALS: BP 139/76; PULSE 86; TEMP 36.4; O2SAT 99
[2024-04-22] VITALS (11 sets, daily range): BP systolic 117–158; BP diastolic 56–87; PULSE 72–100; RESP 16–22; TEMP 36.1–37.1; O2SAT 94–100; BMI 31.2
--- NOTE | 2024-04-22 04:52 | PC.NURSE ---
0345 scheduled Ativan 2 mg PO held per provider's order.
--- NOTE | 2024-04-22 07:04 | MHC.SHP ---
Pre-Procedural Eval Section A - 24 Hr Update-Section A only Date of Service: 04/22/24 The patient is an INPATIENT: Yes The patient has been examined within 24 hours of the surgical procedure. The History & Physical has been completed within 30 days and I have reviewed it.: Yes Section B - Complete if H&P > 30 days Chief Complaint: Schizoaffective Disorder Allergies: Allergies Allergy/AdvReac Type Severity Reaction Status Date / Time No Known Allergies [NKA] Allergy Unknown NONE Verified 04/11/24 15:35 Plan I have reviewed the history and physical and performed a pertinent physical examination on my patient. No changes have occurred unless specified. Time Spent With Patient Time: Total time managing care of this patient today ____ minutes.
--- NOTE | 2024-04-22 08:13 | HO.ECTPROC ---
ECT Procedure Note Diagnosis/Treatment Date of Service: 04/22/24 Diagnosis: Catatonia and Schizoaffective Disorder Current Treatment Number: 4 Treatment: Series Interval Clinical Notes: Patient remains catatonic, no responses. ECT done as usual, no complications. Ativan 2 mg IVP after the procedure was done due to catatonia. Time: Total time managing care of this patient today __30__ minutes. ECT Settings Device: THYMATRON DGx Electrode Placement: Bitemporal Program/Pulse Width: 0.50 Energy Percent: 100 Seizure Duration By EEG (in seconds): 64 By Motor Observation (in seconds): 15 Medications Administration General Anesthetic: Etomidate (18) Muscle Relaxant: Succinylcholine (100) Ancillary Medications Miscillaneous Medications: Flumazenil (0.5) and Other (Ativan 2 mg IVP after ECT) Airway Management Airway Management: Bag Mask Ventilation Treatment Recommendations No Changes Recommended: No change Pt Tolerated Procedure w/o Issue: Yes
[2024-04-22] MEDS: LORazepam 2 MG/ML VIAL IVPUSH (08:18)
--- NOTE | 2024-04-22 08:48 | HO.ANESPROP2 ---
[facility] Active Problems Active Problems: All Active Problems Pre-op evaluation (Acute) Tardive dyskinesia (Acute) Schizoaffective disorder (Acute) Nocturnal hypoxia (Acute) Schizoaffective disorder, depressive type (Acute) Benign prostate hyperplasia (Acute) Essential hypertension (Acute) Right hip pain (Acute) Past Medical History Medical History Tardive dyskinesia Mild sleep apnea Nocturnal hypoxia Routine medical exam Joint inflammation of right hand and wrist Status post fall Adult general medical exam Screening for colon cancer Screening for prostate cancer Cough BPH (benign prostatic hyperplasia) Family History Family History Mother Cancer Father Kidney agenesis Family history of problems with anesthesia: No Surgical History Surgical History History of colonoscopy (~06/15/21) History of tooth extraction History of root canal procedure History of Problems with Anesthesia: No Social History Social History Household Members: None Housing: Unknown / Unable to assess Are you a primary child care leader to a significant other at home: No Do you presently have visiting nurse or other home services: Yes Unable to assess alcohol history related to: Unable to respond Alcohol intake: former Patient Tobacco Use Status: Never used Tobacco e-Cigarette/Vaping Use: Never Used Second Hand Smoke Exposure: No Use of substances other than those prescribed or required for medical reasons: Unknown Currently Displaying Signs/Symptoms of Drug Intoxication Withdrawal: No Advance Directives: No Advance Directives Information Provided: No Do you have thoughts of harming others: None Do you have a plan to hurt others: No Plan Recently lost weight without trying: No How much weight loss: Not applicable Eating poorly because of decreased appetite: No Nutrition screen score: 0 Nutrition Risks: No Nutritional Risk service: No Current occupational status: employed Sexual orientation: Straight/Heterosexual Cognitive needs: No Hearing needs: No Vision needs: No Meds Allergies Allergy/AdvReac Type Severity Reaction Status Date / Time No Known Allergies [NKA] Allergy Unknown NONE Verified 04/11/24 15:35 Active Medications: Current Medications Acetaminophen (Acetaminophen 325 Mg Tablet) 650 mg PO Q6H PRN PRN Reason: Headache/Pain Mild Scale (1-3) Al Hydroxide/Mg Hydroxide (Magnesium Hydrox/Alum Hydrox 30 Ml Oral.Susp) 30 ml PO Q6H PRN PRN Reason: Heartburn/Nausea Clozapine (Clozapine 100 Mg Tablet) 200 mg PO BEDTIME [facility] Last Admin: 04/21/24 19:51 Dose: 200 mg Glycopyrrolate (Glycopyrrolate 1 Mg Tablet) 0.5 mg PO BID [facility] Last Admin: 04/21/24 19:51 Dose: 0.5 mg Hydroxyzine HCl (Hydroxyzine Hcl 25 Mg Tablet) 25 mg PO Q6H PRN PRN Reason: Anxiety Lorazepam (Lorazepam 1 Mg Tablet) 2 mg PO Q6H [facility] Last Admin: 04/22/24 04:52 Dose: Not Given Magnesium Hydroxide (Milk Of Magnesia 30 Ml Oral.Susp) 30 ml PO DAILY PRN PRN Reason: Constipation Ondansetron HCl (Ondansetron Odt 4 Mg Tab.Rapdis) 4 mg TRANSLINGU Q8H PRN PRN Reason: Nausea and Vomiting Tamsulosin HCl (Tamsulosin Hcl 0.4 Mg Capsule) 0.4 mg PO BEDTIME [facility] Last Admin: 04/21/24 19:51 Dose: 0.4 mg Trazodone HCl (Trazodone Hcl 50 Mg Tablet) 50 mg PO BEDTIME MRX1 PRN PRN Reason: Insomnia Last Admin: 04/17/24 20:30 Dose: 50 mg Home Medications ?Medication ?Instructions ?Recorded ?Confirmed ?Last Taken ?Type benztropine 0.5 mg tablet 0.5 mg PO BID 04/11/24 04/12/24 Unknown History Exam Height,Weight and Vital Signs: Height 5 ft 9 in Weight 95.88 kg Last Vital Signs Temp 98.8 F 04/22/24 08:20 Pulse 98 04/22/24 08:35 Resp 20 04/22/24 08:35 BP 155/83 H 04/22/24 08:35 Pulse Ox 100 04/22/24 08:35 O2 Del Method Room Air 04/22/24 08:35 O2 Flow Rate 2 04/22/24 08:30 Pertinent Lab Results Pertinent Lab Results: Laboratory Tests 04/11/24 04/12/24 04/14/24 18:32 08:04 07:32 WBC 8.5 17.5 H RBC 4.50 L 4.59 L Hgb 12.8 L 13.2 L Hct 39.3 L 40.3 L MCV 87.3 87.8 MCH 28.4 28.8 MCHC 32.6 32.8 RDW 13.4 13.7 Plt Count 224 D 197 MPV 10.4 11.1 Immature Gran % (Auto) 0.9 H 0.6 H Neut % (Auto) 70.9 82.2 H Lymph % (Auto) 21.0 9.2 L [place] % (Auto) 7.1 7.8 Eos % (Auto) 0.0 0.0 Baso % (Auto) 0.1 0.2 Lymph # (Auto) 1.8 1.6 [place] # (Auto) 0.6 1.4 H Eos # (Auto) 0.0 0.0 Baso # (Auto) 0.0 0.0 Abs Immat Gran (auto) 0.08 H 0.11 H Absolute Neuts (auto) 6.1 14.4 H Absolute Nucleated RBC 0.000 0.000 Nucleated RBC % (auto) 0.0 0.0 Sodium 143 Potassium 4.2 Chloride 110 H Carbon Dioxide 26 Anion Gap 11 L BUN 21 H Creatinine 1.32 Estim Creat Clear Calc 59.5 Estimated GFR 55 Random Glucose 81 Estimat Average Glucose 111 Hemoglobin A1c % 5.5 Calcium 9.1 Magnesium 2.1 Total Bilirubin 0.5 AST 19 ALT 12 Alkaline Phosphatase 56 Total Protein 7.4 Albumin 3.9 Triglycerides 88 Cholesterol 149 LDL Cholesterol, Calc 101 H HDL Cholesterol 31 L Vitamin B12 437 Folate 17.1 TSH 0.36 Free T4 1.35 Urine Color Urine Appearance Urine pH Ur Specific Johnson Urine Protein Urine Glucose (UA) Urine Ketones Urine Blood Urine Nitrite Ur Leukocyte Esterase Urine Opiates Screen Ur Buprenorphine Scrn Ur Oxycodone Screen Urine Methadone Screen Urine Fentanyl Screen Ur Barbiturates Screen Ur Phencyclidine Scrn Ur Amphetamines Screen U Benzodiazepines Scrn Urine Cocaine Screen U Marijuana (THC) Screen Ethyl Alcohol < 10 04/14/24 04/21/24 10:02 08:20 WBC RBC Hgb Hct MCV MCH MCHC RDW Plt Count MPV Immature Gran % (Auto) Neut % (Auto) Lymph % (Auto) [place] % (Auto) Eos % (Auto) Baso % (Auto) Lymph # (Auto) [place] # (Auto) Eos # (Auto) Baso # (Auto) Abs Immat Gran (auto) Absolute Neuts (auto) 4.4 Absolute Nucleated RBC Nucleated RBC % (auto) Sodium Potassium Chloride Carbon Dioxide Anion Gap BUN Creatinine Estim Creat Clear Calc Estimated GFR Random Glucose Estimat Average Glucose Hemoglobin A1c % Calcium Magnesium Total Bilirubin AST ALT Alkaline Phosphatase Total Protein Albumin Triglycerides Cholesterol LDL Cholesterol, Calc HDL Cholesterol Vitamin B12 Folate TSH Free T4 Urine Color Yellow Urine Appearance Clear Urine pH 5.5 Ur Specific Johnson 1.020 Urine Protein Negative Urine Glucose (UA) Negative Urine Ketones Negative Urine Blood Negative Urine Nitrite Negative Ur Leukocyte Esterase Negative Urine Opiates Screen Not Detected Ur Buprenorphine Scrn Not Detected Ur Oxycodone Screen Not Detected Urine Methadone Screen Not Detected Urine Fentanyl Screen Not Detected Ur Barbiturates Screen Not Detected Ur Phencyclidine Scrn Not Detected Ur Amphetamines Screen Not Detected U Benzodiazepines Scrn Not Detected Urine Cocaine Screen Not Detected U Marijuana (THC) Screen Not Detected Ethyl Alcohol Airway Mallampati Class: III TM Dist: >3cm Assessment and Plan Assessment Anesthesia Assessment: Anesthesia Plan Discussed and Chart Reviewed Final Anesthetic Review Family History of Problems with Anesthesia: No History of Problems with Anesthesia: No NPO: Yes ASA Class: III Final Preanesthetic Review: No Changes in Pt Med Stat, Meds/Allgs Chart Reviewed, Consent Obtained/Reviewed, Anes Risks/Benef Reviewed and DNR Form (If Appl.) Patient Risk: Intermediate Procedure Risk: Intermediate Anesthetic Plan Anesthetic Plan: GA Disposition: Standard PACU
--- NOTE | 2024-04-22 09:56 | HO.PSYCHPN ---
Subjective Subjective Date of Service: 04/22/24 Reason For Visit: Schizoaffective Disorder Subjective Notes: Conditional Voluntary Interim History: The nursing staff reported the patient remains catatonic, the staff reported that he spoke a little in the afternoon yesterday he remains most of the time on his med. Today we had ECT with no complications, he remains hypoactive. Mental Status Exam Mental Status Exam Patient Appearance: Appropriate and Unkempt Patient Orientation: Person Level of Consciousness: Awake Patient Behavior: Guarded Mood Description: Calm Affect Description: Blunted Patient Cognition Impaired: Yes Ability to Follow Directions: Fair Speech Pattern: Impoverished Hallucinations: Auditory Delusions: Paranoid Ideation and Ideas of Reference Thought Process: Distracted and Slowed Thinking Thought Content: positive for [place], positive for Poverty of Content and positive for Thought Blocking Judgement: Poor Diagnostics Vital Signs (24Hr): Vital Signs - 24 hr 04/21/24 13:00 04/21/24 20:00 04/22/24 05:35 Temperature 97.5 F 97.1 F Pulse Rate 88 86 75 Respiratory Rate 18 16 Blood Pressure 133/61 139/76 120/59 L Pulse Oximetry 99 100 Oxygen Delivery Method Room Air Oxygen Flow Rate 04/22/24 06:31 04/22/24 08:20 04/22/24 08:25 Temperature 97 F 98.8 F Pulse Rate 83 92 98 Respiratory Rate 16 22 H 22 H Blood Pressure 145/77 H 158/83 H 150/87 H Pulse Oximetry 98 99 100 Oxygen Delivery Method Room Air Nasal Cannula Nasal Cannula Oxygen Flow Rate 2 2 04/22/24 08:30 04/22/24 08:35 04/22/24 08:50 Temperature Pulse Rate 98 98 96 Respiratory Rate 20 20 20 Blood Pressure 154/81 H 155/83 H 147/82 H Pulse Oximetry 100 100 96 Oxygen Delivery Method Nasal Cannula Room Air Room Air Oxygen Flow Rate 2 04/22/24 09:05 Temperature 98.8 F Pulse Rate 100 Respiratory Rate 20 Blood Pressure 142/80 H Pulse Oximetry 96 Oxygen Delivery Method Room Air Oxygen Flow Rate BMI result Body Mass Index 31.2 Labs 04/14/24 07:32 04/11/24 18:32 Labs: Laboratory Results - last 48 hr 04/21/24 08:20 Absolute Neuts (auto) 4.4 Medications Medications Current Medications Acetaminophen (Acetaminophen 325 Mg Tablet) 650 mg PO Q6H PRN PRN Reason: Headache/Pain Mild Scale (1-3) Al Hydroxide/Mg Hydroxide (Magnesium Hydrox/Alum Hydrox 30 Ml Oral.Susp) 30 ml PO Q6H PRN PRN Reason: Heartburn/Nausea Clozapine (Clozapine 100 Mg Tablet) 200 mg PO BEDTIME [facility] Last Admin: 04/21/24 19:51 Dose: 200 mg Glycopyrrolate (Glycopyrrolate 1 Mg Tablet) 0.5 mg PO BID [facility] Last Admin: 04/21/24 19:51 Dose: 0.5 mg Hydroxyzine HCl (Hydroxyzine Hcl 25 Mg Tablet) 25 mg PO Q6H PRN PRN Reason: Anxiety Lorazepam (Lorazepam 1 Mg Tablet) 2 mg PO Q6H [facility] Last Admin: 04/22/24 04:52 Dose: Not Given Magnesium Hydroxide (Milk Of Magnesia 30 Ml Oral.Susp) 30 ml PO DAILY PRN PRN Reason: Constipation Naloxone HCl (Naloxone Hcl 0.4 Mg/Ml Vial) 0.04 mg IVPUSH Q5M PRN PRN Reason: Excessive sedation or RR < 8 Ondansetron HCl (Ondansetron Odt 4 Mg Tab.Rapdis) 4 mg TRANSLINGU Q8H PRN PRN Reason: Nausea and Vomiting Tamsulosin HCl (Tamsulosin Hcl 0.4 Mg Capsule) 0.4 mg PO BEDTIME [facility] Last Admin: 04/21/24 19:51 Dose: 0.4 mg Trazodone HCl (Trazodone Hcl 50 Mg Tablet) 50 mg PO BEDTIME MRX1 PRN PRN Reason: Insomnia Last Admin: 04/17/24 20:30 Dose: 50 mg Allergies Allergies Allergy/AdvReac Type Severity Reaction Status Date / Time No Known Allergies [NKA] Allergy Unknown NONE Verified 04/11/24 15:35 Assessment & Plan Assessment & Plan (1) Schizoaffective disorder: Status: Acute Code(s): F25.9 - Schizoaffective disorder, unspecified (2) Tardive dyskinesia: Status: Acute Code(s): G24.01 - Drug induced subacute dyskinesia Plan The patient is a 58-year-old male with a past history of schizoaffective disorder and catatonia who was readmitted due to relapsed on catatonic symptoms. The patient is a very poor historian but we know him very well since he was admitted here before. Plan 1. Start titration of Clozaril up to 200 mg p.o. q.h.s. that used to be the dose that more for him at this moment so 100 mg p.o. q.h.s.. 2. Continue with Ativan 2 mg p.o. t.i.d. to target catatonia. 3. Continue with ECT, so far he has not responded yet. 4. Reassessment with results. Reason for continued inpatient stay Substantial Risk for: inability to function, rapid decompensation and med/psych decompensation Time Spent With Patient Time: Total time managing care of this patient today __20__ minutes.
[2024-04-22] MEDS: Glycopyrrolate 1 MG TABLET 0.5 MG PO ×2 (11:01→20:51)
[2024-04-22] MEDS: LORazepam 1 MG TABLET 2 MG PO ×3 (11:01→20:50)
[2024-04-22 12:32] LABS: Neut%MD 65.9 %; Neutrophils Absolute Auto 4.3 x10*3/uL (2.0-8.3); WBCANC 6.5 X10*3/uL
[2024-04-22] MEDS: Tamsulosin HCL 0.4 MG CAPSULE PO (20:50)
[2024-04-22] MEDS: cloZAPine 100 MG TABLET 200 MG PO (20:50)
[2024-04-23] MEDS: traZODone HCL 50 MG TABLET PO ×2 (00:23→20:30)
[2024-04-23] MEDS: hydrOXYzine HCL 25 MG TABLET PO ×2 (00:23→20:30)
[2024-04-23] MEDS: LORazepam 1 MG TABLET 2 MG PO ×4 (04:31→21:24)
[2024-04-23 08:00] VITALS: BP 115/56; PULSE 79; RESP 18; TEMP 36.4; O2SAT 95
--- NOTE | 2024-04-23 08:46 | HO.PSYCHPN ---
Subjective Subjective Reason For Visit: Schizoaffective Disorder Diagnostics Vital Signs (24Hr): Vital Signs - 24 hr 04/22/24 08:50 04/22/24 09:05 04/22/24 11:33 Temperature 98.8 F 97.2 F Pulse Rate 96 100 82 Respiratory Rate 20 20 16 Blood Pressure 147/82 H 142/80 H 134/82 Pulse Oximetry 96 96 95 Oxygen Delivery Method Room Air Room Air 04/22/24 20:00 Temperature 97.2 F Pulse Rate 72 Respiratory Rate 18 Blood Pressure 117/56 L Pulse Oximetry 94 Oxygen Delivery Method Room Air BMI result Body Mass Index 31.2 Labs 04/14/24 07:32 04/11/24 18:32 Labs: Laboratory Results - last 48 hr 04/21/24 04/22/24 08:20 12:07 Absolute Neuts (auto) 4.4 4.3 Medications Medications Current Medications Acetaminophen (Acetaminophen 325 Mg Tablet) 650 mg PO Q6H PRN PRN Reason: Headache/Pain Mild Scale (1-3) Al Hydroxide/Mg Hydroxide (Magnesium Hydrox/Alum Hydrox 30 Ml Oral.Susp) 30 ml PO Q6H PRN PRN Reason: Heartburn/Nausea Clozapine (Clozapine 100 Mg Tablet) 200 mg PO BEDTIME [facility] Last Admin: 04/22/24 20:50 Dose: 200 mg Glycopyrrolate (Glycopyrrolate 1 Mg Tablet) 0.5 mg PO BID [facility] Last Admin: 04/22/24 20:51 Dose: 0.5 mg Hydroxyzine HCl (Hydroxyzine Hcl 25 Mg Tablet) 25 mg PO Q6H PRN PRN Reason: Anxiety Last Admin: 04/23/24 00:23 Dose: 25 mg Lorazepam (Lorazepam 1 Mg Tablet) 2 mg PO Q6H [facility] Last Admin: 04/23/24 04:31 Dose: 2 mg Magnesium Hydroxide (Milk Of Magnesia 30 Ml Oral.Susp) 30 ml PO DAILY PRN PRN Reason: Constipation Naloxone HCl (Naloxone Hcl 0.4 Mg/Ml Vial) 0.04 mg IVPUSH Q5M PRN PRN Reason: Excessive sedation or RR < 8 Ondansetron HCl (Ondansetron Odt 4 Mg Tab.Rapdis) 4 mg TRANSLINGU Q8H PRN PRN Reason: Nausea and Vomiting Tamsulosin HCl (Tamsulosin Hcl 0.4 Mg Capsule) 0.4 mg PO BEDTIME [facility] Last Admin: 04/22/24 20:50 Dose: 0.4 mg Trazodone HCl (Trazodone Hcl 50 Mg Tablet) 50 mg PO BEDTIME MRX1 PRN PRN Reason: Insomnia Last Admin: 04/23/24 00:23 Dose: 50 mg Allergies Allergies Allergy/AdvReac Type Severity Reaction Status Date / Time No Known Allergies [NKA] Allergy Unknown NONE Verified 04/11/24 15:35 Assessment & Plan Assessment & Plan (1) Schizoaffective disorder: Status: Acute Code(s): F25.9 - Schizoaffective disorder, unspecified (2) Tardive dyskinesia: Status: Acute Code(s): G24.01 - Drug induced subacute dyskinesia Plan The patient is a 58-year-old male with a past history of schizoaffective disorder and catatonia who was readmitted due to relapsed on catatonic symptoms. The patient is a very poor historian but we know him very well since he was admitted here before. Plan 1. Start titration of Clozaril up to 200 mg p.o. q.h.s. that used to be the dose that more for him at this moment so 100 mg p.o. q.h.s.. 2. Continue with Ativan 2 mg p.o. t.i.d. to target catatonia. 3. Continue with ECT, so far he has not responded yet. 4. Reassessment with results. Time Spent With Patient Time: Total time managing care of this patient today ____ minutes.
[2024-04-23] MEDS: Glycopyrrolate 1 MG TABLET 0.5 MG PO ×2 (10:51→20:32)
--- NOTE | 2024-04-23 11:27 | HO.PSYCHPN ---
Subjective Subjective Date of Service: 04/23/24 Reason For Visit: Schizoaffective Disorder Subjective Notes: Conditional Voluntary Interim History: The nursing staff reported the patient had been catatonic but able to eat and drink. He slept well last night. On interview the patient remains hyper active, catatonic but slightly more reactive. We will continue with ECT Mental Status Exam Mental Status Exam Patient Appearance: Appropriate Patient Orientation: Person and Situation Level of Consciousness: Awake and Appropriate Patient Behavior: Guarded and Passive Mood Description: Withdrawn Affect Description: Constricted Patient Cognition Impaired: Yes Ability to Follow Directions: Good Speech Pattern: Clear Hallucinations: None Delusions: Paranoid Ideation and Ideas of Reference Thought Process: Distracted and Slowed Thinking Thought Content: positive for Thought Blocking Judgement: Fair Diagnostics Vital Signs (24Hr): Vital Signs - 24 hr 04/22/24 11:33 04/22/24 20:00 04/23/24 08:00 Temperature 97.2 F 97.2 F 97.5 F Pulse Rate 82 72 79 Respiratory Rate 16 18 18 Blood Pressure 134/82 117/56 L 115/56 L Pulse Oximetry 95 94 95 Oxygen Delivery Method Room Air Room Air BMI result Body Mass Index 31.2 Labs 04/14/24 07:32 04/11/24 18:32 Labs: Laboratory Results - last 48 hr 04/22/24 12:07 Absolute Neuts (auto) 4.3 Medications Medications Current Medications Acetaminophen (Acetaminophen 325 Mg Tablet) 650 mg PO Q6H PRN PRN Reason: Headache/Pain Mild Scale (1-3) Al Hydroxide/Mg Hydroxide (Magnesium Hydrox/Alum Hydrox 30 Ml Oral.Susp) 30 ml PO Q6H PRN PRN Reason: Heartburn/Nausea Clozapine (Clozapine 100 Mg Tablet) 200 mg PO BEDTIME [facility] Last Admin: 04/22/24 20:50 Dose: 200 mg Glycopyrrolate (Glycopyrrolate 1 Mg Tablet) 0.5 mg PO BID [facility] Last Admin: 04/23/24 10:51 Dose: 0.5 mg Hydroxyzine HCl (Hydroxyzine Hcl 25 Mg Tablet) 25 mg PO Q6H PRN PRN Reason: Anxiety Last Admin: 04/23/24 00:23 Dose: 25 mg Lorazepam (Lorazepam 1 Mg Tablet) 2 mg PO Q6H [facility] Last Admin: 04/23/24 10:52 Dose: 2 mg Magnesium Hydroxide (Milk Of Magnesia 30 Ml Oral.Susp) 30 ml PO DAILY PRN PRN Reason: Constipation Naloxone HCl (Naloxone Hcl 0.4 Mg/Ml Vial) 0.04 mg IVPUSH Q5M PRN PRN Reason: Excessive sedation or RR < 8 Ondansetron HCl (Ondansetron Odt 4 Mg Tab.Rapdis) 4 mg TRANSLINGU Q8H PRN PRN Reason: Nausea and Vomiting Tamsulosin HCl (Tamsulosin Hcl 0.4 Mg Capsule) 0.4 mg PO BEDTIME [facility] Last Admin: 04/22/24 20:50 Dose: 0.4 mg Trazodone HCl (Trazodone Hcl 50 Mg Tablet) 50 mg PO BEDTIME MRX1 PRN PRN Reason: Insomnia Last Admin: 04/23/24 00:23 Dose: 50 mg Allergies Allergies Allergy/AdvReac Type Severity Reaction Status Date / Time No Known Allergies [NKA] Allergy Unknown NONE Verified 04/11/24 15:35 Assessment & Plan Assessment & Plan (1) Catatonia: Status: Acute Code(s): F06.1 - Catatonic disorder due to known physiological condition (2) Schizoaffective disorder: Status: Acute Code(s): F25.9 - Schizoaffective disorder, unspecified (3) Tardive dyskinesia: Status: Acute Code(s): G24.01 - Drug induced subacute dyskinesia Plan The patient is a 58-year-old male with a past history of schizoaffective disorder and catatonia who was readmitted due to relapsed on catatonic symptoms. The patient is a very poor historian but we know him very well since he was admitted here before. Plan 1. Start titration of Clozaril up to 200 mg p.o. q.h.s. that used to be the dose that more for him at this moment so 100 mg p.o. q.h.s.. 2. Continue with Ativan 2 mg p.o. t.i.d. to target catatonia. 3. Continue with ECT, so far he has not responded yet. 4. Reassessment with results. Reason for continued inpatient stay Substantial Risk for: inability to function, rapid decompensation and med/psych decompensation Time Spent With Patient Time: Total time managing care of this patient today __20__ minutes.
[2024-04-23 20:00] VITALS: BP 134/83; PULSE 82; RESP 18; TEMP 36; O2SAT 96
[2024-04-23] MEDS: cloZAPine 100 MG TABLET 200 MG PO (20:29)
[2024-04-23] MEDS: Tamsulosin HCL 0.4 MG CAPSULE PO (20:30)
[2024-04-24] VITALS (10 sets, daily range): BP systolic 115–176; BP diastolic 56–94; PULSE 74–102; RESP 17–20; TEMP 36.1–37.1; O2SAT 93–98
[2024-04-24] MEDS: LORazepam 1 MG TABLET 2 MG PO ×2 (03:35→19:30)
--- NOTE | 2024-04-24 08:03 | MHC.SHP ---
Pre-Procedural Eval Section A - 24 Hr Update-Section A only Date of Service: 04/24/24 The patient is an INPATIENT: Yes Changes since office visit: No Cold of Flu in the past 2 weeks, No New Medical Problems, No Changes in Medication and No Patient answered all questions The patient has been examined within 24 hours of the surgical procedure. The History & Physical has been completed within 30 days and I have reviewed it.: Yes Section B - Complete if H&P > 30 days Chief Complaint: Schizoaffective Disorder Allergies: Allergies Allergy/AdvReac Type Severity Reaction Status Date / Time No Known Allergies [NKA] Allergy Unknown NONE Verified 04/11/24 15:35 Plan I have reviewed the history and physical and performed a pertinent physical examination on my patient. No changes have occurred unless specified. Time Spent With Patient Time: Total time managing care of this patient today ____ minutes.
--- NOTE | 2024-04-24 08:38 | HO.ECTPROC ---
ECT Procedure Note Diagnosis/Treatment Date of Service: 04/24/24 Diagnosis: Catatonia and Schizoaffective Disorder Previous ECT Date: 04/22/24 Current Treatment Number: 5 Treatment: Series Interval Clinical Notes: Patient remains catatonic,minimal responses ECT done BT no complications. Ativan 2 mg IVP after the procedure was done due to catatonia. flumazenil given pre Time: Total time managing care of this patient today ____ minutes. ECT Settings Device: THYMATRON DGx Electrode Placement: Bitemporal Program/Pulse Width: 0.50 Energy Percent: 100 Seizure Duration By EEG (in seconds): 32 Medications Administration General Anesthetic: Etomidate (18) Muscle Relaxant: Succinylcholine (100) Ancillary Medications Miscillaneous Medications: Flumazenil (0.5) and Other (Ativan 2 mg IVP after ECT) Airway Management Airway Management: Bag Mask Ventilation Treatment Recommendations No Changes Recommended: No change Notes: consider robinalfor congestion Pt Tolerated Procedure w/o Issue: Yes
--- NOTE | 2024-04-24 08:41 | HO.ANESPROP2 ---
HPI - Anesthesia Eval Consult details Narrative: 58 yo male patient for ECT PMFSH Active Problems Active Problems: All Active Problems (Updated 04/23/24 @ 15:17 by Poncho Beauchamp MD) Catatonia (Acute) Pre-op evaluation (Acute) Tardive dyskinesia (Acute) Schizoaffective disorder (Acute) Nocturnal hypoxia (Acute) Schizoaffective disorder, depressive type (Acute) Benign prostate hyperplasia (Acute) Essential hypertension (Acute) Right hip pain (Acute) Past Medical History Medical History Tardive dyskinesia Mild sleep apnea Nocturnal hypoxia Routine medical exam Joint inflammation of right hand and wrist Status post fall Adult general medical exam Screening for colon cancer Screening for prostate cancer Cough BPH (benign prostatic hyperplasia) Family History Family History Mother Cancer Father Kidney agenesis Family history of problems with anesthesia: No Surgical History Surgical History History of colonoscopy (~06/15/21) History of tooth extraction History of root canal procedure History of Problems with Anesthesia: No Social History Social History Household Members: None Housing: Unknown / Unable to assess Are you a primary career information specialist to a significant other at home: No Do you presently have visiting nurse or other home services: Yes Unable to assess alcohol history related to: Unable to respond Alcohol intake: former Patient Tobacco Use Status: Never used Tobacco e-Cigarette/Vaping Use: Never Used Second Hand Smoke Exposure: No Use of substances other than those prescribed or required for medical reasons: Unknown Currently Displaying Signs/Symptoms of Drug Intoxication Withdrawal: No Advance Directives: No Advance Directives Information Provided: No Do you have thoughts of harming others: None Do you have a plan to hurt others: No Plan Recently lost weight without trying: No How much weight loss: Not applicable Eating poorly because of decreased appetite: No Nutrition screen score: 0 Nutrition Risks: No Nutritional Risk service: No Current occupational status: employed Sexual orientation: Straight/Heterosexual Cognitive needs: No Hearing needs: No Vision needs: No Meds Allergies Allergy/AdvReac Type Severity Reaction Status Date / Time No Known Allergies [NKA] Allergy Unknown NONE Verified 04/11/24 15:35 Active Medications: Current Medications Acetaminophen (Acetaminophen 325 Mg Tablet) 650 mg PO Q6H PRN PRN Reason: Headache/Pain Mild Scale (1-3) Al Hydroxide/Mg Hydroxide (Magnesium Hydrox/Alum Hydrox 30 Ml Oral.Susp) 30 ml PO Q6H PRN PRN Reason: Heartburn/Nausea Clozapine (Clozapine 100 Mg Tablet) 200 mg PO BEDTIME [facility] Last Admin: 04/23/24 20:29 Dose: 200 mg Glycopyrrolate (Glycopyrrolate 1 Mg Tablet) 0.5 mg PO BID [facility] Last Admin: 04/23/24 20:32 Dose: 0.5 mg Hydroxyzine HCl (Hydroxyzine Hcl 25 Mg Tablet) 25 mg PO Q6H PRN PRN Reason: Anxiety Last Admin: 04/23/24 20:30 Dose: 25 mg Lorazepam (Lorazepam 1 Mg Tablet) 2 mg PO Q6H [facility] Last Admin: 04/24/24 03:35 Dose: 2 mg Magnesium Hydroxide (Milk Of Magnesia 30 Ml Oral.Susp) 30 ml PO DAILY PRN PRN Reason: Constipation Naloxone HCl (Naloxone Hcl 0.4 Mg/Ml Vial) 0.04 mg IVPUSH Q5M PRN PRN Reason: Excessive sedation or RR < 8 Ondansetron HCl (Ondansetron Odt 4 Mg Tab.Rapdis) 4 mg TRANSLINGU Q8H PRN PRN Reason: Nausea and Vomiting Tamsulosin HCl (Tamsulosin Hcl 0.4 Mg Capsule) 0.4 mg PO BEDTIME [facility] Last Admin: 04/23/24 20:30 Dose: 0.4 mg Trazodone HCl (Trazodone Hcl 50 Mg Tablet) 50 mg PO BEDTIME MRX1 PRN PRN Reason: Insomnia Last Admin: 04/23/24 20:30 Dose: 50 mg Home Medications ?Medication ?Instructions ?Recorded ?Confirmed ?Last Taken ?Type benztropine 0.5 mg tablet 0.5 mg PO BID 04/11/24 04/12/24 Unknown History Exam Height,Weight and Vital Signs: Height 5 ft 9 in Weight 95.88 kg Last Vital Signs Temp 97.4 F 04/24/24 06:59 Pulse 78 04/24/24 06:59 Resp 18 04/24/24 06:59 BP 128/80 04/24/24 06:59 Pulse Ox 95 04/24/24 06:59 O2 Del Method Nasal Cannula 04/24/24 06:59 O2 Flow Rate 2 04/24/24 06:59 Vital Signs Temp Pulse Resp BP Pulse Ox O2 Del Method O2 Flow Rate 04/24/24 06:59 97.4 F 78 18 128/80 95 Nasal Cannula 2 04/24/24 06:04 97.2 F 74 18 115/56 L 95 Room Air 04/23/24 20:00 96.8 F 82 18 134/83 96 Room Air Pertinent Lab Results Pertinent Lab Results: Laboratory Tests 04/11/24 04/12/24 04/14/24 18:32 08:04 07:32 WBC 8.5 17.5 H RBC 4.50 L 4.59 L Hgb 12.8 L 13.2 L Hct 39.3 L 40.3 L MCV 87.3 87.8 MCH 28.4 28.8 MCHC 32.6 32.8 RDW 13.4 13.7 Plt Count 224 D 197 MPV 10.4 11.1 Immature Gran % (Auto) 0.9 H 0.6 H Neut % (Auto) 70.9 82.2 H Lymph % (Auto) 21.0 9.2 L [place] % (Auto) 7.1 7.8 Eos % (Auto) 0.0 0.0 Baso % (Auto) 0.1 0.2 Lymph # (Auto) 1.8 1.6 [place] # (Auto) 0.6 1.4 H Eos # (Auto) 0.0 0.0 Baso # (Auto) 0.0 0.0 Abs Immat Gran (auto) 0.08 H 0.11 H Absolute Neuts (auto) 6.1 14.4 H Absolute Nucleated RBC 0.000 0.000 Nucleated RBC % (auto) 0.0 0.0 Sodium 143 Potassium 4.2 Chloride 110 H Carbon Dioxide 26 Anion Gap 11 L BUN 21 H Creatinine 1.32 Estim Creat Clear Calc 59.5 Estimated GFR 55 Random Glucose 81 Estimat Average Glucose 111 Hemoglobin A1c % 5.5 Calcium 9.1 Magnesium 2.1 Total Bilirubin 0.5 AST 19 ALT 12 Alkaline Phosphatase 56 Total Protein 7.4 Albumin 3.9 Triglycerides 88 Cholesterol 149 LDL Cholesterol, Calc 101 H HDL Cholesterol 31 L Vitamin B12 437 Folate 17.1 TSH 0.36 Free T4 1.35 Urine Color Urine Appearance Urine pH Ur Specific Roff Urine Protein Urine Glucose (UA) Urine Ketones Urine Blood Urine Nitrite Ur Leukocyte Esterase Urine Opiates Screen Ur Buprenorphine Scrn Ur Oxycodone Screen Urine Methadone Screen Urine Fentanyl Screen Ur Barbiturates Screen Ur Phencyclidine Scrn Ur Amphetamines Screen U Benzodiazepines Scrn Urine Cocaine Screen U Marijuana (THC) Screen Ethyl Alcohol < 10 04/14/24 04/21/24 04/22/24 10:02 08:20 12:07 WBC RBC Hgb Hct MCV MCH MCHC RDW Plt Count MPV Immature Gran % (Auto) Neut % (Auto) Lymph % (Auto) [place] % (Auto) Eos % (Auto) Baso % (Auto) Lymph # (Auto) [place] # (Auto) Eos # (Auto) Baso # (Auto) Abs Immat Gran (auto) Absolute Neuts (auto) 4.4 4.3 Absolute Nucleated RBC Nucleated RBC % (auto) Sodium Potassium Chloride Carbon Dioxide Anion Gap BUN Creatinine Estim Creat Clear Calc Estimated GFR Random Glucose Estimat Average Glucose Hemoglobin A1c % Calcium Magnesium Total Bilirubin AST ALT Alkaline Phosphatase Total Protein Albumin Triglycerides Cholesterol LDL Cholesterol, Calc HDL Cholesterol Vitamin B12 Folate TSH Free T4 Urine Color Yellow Urine Appearance Clear Urine pH 5.5 Ur Specific Roff 1.020 Urine Protein Negative Urine Glucose (UA) Negative Urine Ketones Negative Urine Blood Negative Urine Nitrite Negative Ur Leukocyte Esterase Negative Urine Opiates Screen Not Detected Ur Buprenorphine Scrn Not Detected Ur Oxycodone Screen Not Detected Urine Methadone Screen Not Detected Urine Fentanyl Screen Not Detected Ur Barbiturates Screen Not Detected Ur Phencyclidine Scrn Not Detected Ur Amphetamines Screen Not Detected U Benzodiazepines Scrn Not Detected Urine Cocaine Screen Not Detected U Marijuana (THC) Screen Not Detected Ethyl Alcohol Narrative Narrative: Very sleepy. Airway Mallampati Class: III TM Dist: >3cm Neck ROM: Full Loose/Missing/Broken Teeth: Yes (Many missing) Heart: RRR Lungs: CTAB Assessment and Plan Assessment Anesthesia Assessment: Anesthesia Plan Discussed and Chart Reviewed Final Anesthetic Review Family History of Problems with Anesthesia: No History of Problems with Anesthesia: No NPO: Yes ASA Class: III Final Preanesthetic Review: No Changes in Pt Med Stat, Meds/Allgs Chart Reviewed, Consent Obtained/Reviewed and Anes Risks/Benef Reviewed Patient Risk: Intermediate Procedure Risk: Intermediate Assessment/Block/Sedation in SS: Assess/Block/Sedation- Anesthetic Plan Anesthetic Plan: GA Disposition: Standard PACU
[2024-04-24] MEDS: Lactated Ringers 1,000 ML 50 ML IVCONT (09:00)
[2024-04-24] MEDS: LORazepam 2 MG/ML VIAL IVPUSH (09:35)
[2024-04-24 12:13] LABS: Basophils Percent Auto 0.2 % (0-2); Eosinophils Percent Auto 0.2 % (0-4); Hematocrit 36.8 % (42.0-52.0); Imm Gran Abs Auto 0.03 X10*3/uL (0.00-0.03); Imm Gran Pct Auto 0.5 % (0.0-0.4); Lymphocytes Absolute Auto 1.2 X10*3/uL (1.2-4.9); Lymphocytes Percent Auto 21.8 % (20-40); MANUAL DIFF FLAG SCAN; Mean Corpuscular HGB Conc 32.6 g/dl (31.0-36.0); Mean Corpuscular Hemoglobin 28.3 pg (27.0-33.0); Mean Corpuscular Volume 86.8 fL (80.0-98.0); Mean Platelet Volume 11.7 fL (9.4-12.4); Monocytes Absolute Auto 0.4 X10*3/uL (0.1-1.2); Monocytes Percent Auto 7.7 % (2-11); Neutrophils Absolute Auto 3.9 x10*3/uL (2.0-8.3); Neutrophils Percent Auto 69.6 % (45-73); PLT CLUMP 1; Red Blood Count 4.24 X10*6/uL (4.60-5.80); Red Cell Distribution Width 13.3 % (11.0-16.0); SCAN SMEAR FLAG 1
[2024-04-24 13:02] LABS: Platelet Count 125 X10*3/uL (160-400); White Blood Count 5.6 X10*3/uL (4.8-10.8)
[2024-04-24 13:04] LABS: SLIDE REVIEW VERIFIED
--- NOTE | 2024-04-24 15:14 | HO.PSYCHPN ---
Subjective Subjective Date of Service: 04/24/24 Reason For Visit: Schizoaffective Disorder Subjective Notes: Conditional Voluntary Interim History: THE NURSING STAFF REPORTED THE PATIENT HAD BEEN ISOLATIVE, VISIBLE IN THE UNIT FLAT SLIGHTLY BRIGHTER AFFECT IN THE EVENING. 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 On interview, the patient reported that he is feeling a little tired after ECT, he looks slightly brighter. Mental Status Exam Mental Status Exam Patient Appearance: Unkempt Patient Orientation: Person and Situation Level of Consciousness: Awake and Appropriate Patient Behavior: Guarded and Passive Mood Description: Withdrawn Affect Description: Blunted Patient Cognition Impaired: Yes Ability to Follow Directions: Good Speech Pattern: Clear Hallucinations: None Delusions: Paranoid Ideation and Ideas of Reference Thought Process: Distracted and Slowed Thinking Thought Content: positive for Ava and positive for Poverty of Content Judgement: Fair Diagnostics Vital Signs (24Hr): Vital Signs - 24 hr 04/23/24 20:00 04/24/24 06:04 04/24/24 06:59 Temperature 96.8 F 97.2 F 97.4 F Pulse Rate 82 74 78 Respiratory Rate 18 18 18 Blood Pressure 134/83 115/56 L 128/80 Pulse Oximetry 96 95 95 Oxygen Delivery Method Room Air Room Air Nasal Cannula Oxygen Flow Rate 2 04/24/24 09:25 04/24/24 09:30 04/24/24 09:35 Temperature 98.8 F Pulse Rate 91 100 99 Respiratory Rate 18 18 18 Blood Pressure 174/94 H 172/86 H 176/82 H Pulse Oximetry 98 98 97 Oxygen Delivery Method Nasal Cannula with ETCO2 Nasal Cannula with ETCO2 Room Air Oxygen Flow Rate 2 2 04/24/24 09:40 04/24/24 09:55 04/24/24 10:10 Temperature 98.3 F Pulse Rate 81 96 98 Respiratory Rate 18 18 20 Blood Pressure 176/82 H 169/89 H 165/89 H Pulse Oximetry 93 95 95 Oxygen Delivery Method Room Air Room Air Room Air Oxygen Flow Rate 2 2 04/24/24 10:50 Temperature 97.0 F Pulse Rate 102 H Respiratory Rate 18 Blood Pressure 137/73 Pulse Oximetry 94 Oxygen Delivery Method Room Air Oxygen Flow Rate BMI result Body Mass Index 31.2 Labs 04/24/24 11:58 04/11/24 18:32 Labs: Laboratory Results - last 48 hr 04/24/24 11:58 WBC 5.6 RBC 4.24 L Hgb 12.0 L Hct 36.8 L MCV 86.8 MCH 28.3 MCHC 32.6 RDW 13.3 Plt Count 125 L D MPV 11.7 Immature Gran % (Auto) 0.5 H Neut % (Auto) 69.6 Lymph % (Auto) 21.8 [place] % (Auto) 7.7 Eos % (Auto) 0.2 Baso % (Auto) 0.2 Lymph # (Auto) 1.2 [place] # (Auto) 0.4 Eos # (Auto) 0.0 Baso # (Auto) 0.0 Abs Immat Gran (auto) 0.03 Absolute Neuts (auto) 3.9 Absolute Nucleated RBC 0.000 Nucleated RBC % (auto) 0.0 Smear Tech's Comments VERIFIED Medications Medications Current Medications Acetaminophen (Acetaminophen 325 Mg Tablet) 650 mg PO Q6H PRN PRN Reason: Headache/Pain Mild Scale (1-3) Al Hydroxide/Mg Hydroxide (Magnesium Hydrox/Alum Hydrox 30 Ml Oral.Susp) 30 ml PO Q6H PRN PRN Reason: Heartburn/Nausea Clozapine (Clozapine 100 Mg Tablet) 200 mg PO BEDTIME [facility] Last Admin: 04/23/24 20:29 Dose: 200 mg Glycopyrrolate (Glycopyrrolate 1 Mg Tablet) 0.5 mg PO BID [facility] Last Admin: 04/23/24 20:32 Dose: 0.5 mg Hydroxyzine HCl (Hydroxyzine Hcl 25 Mg Tablet) 25 mg PO Q6H PRN PRN Reason: Anxiety Last Admin: 04/23/24 20:30 Dose: 25 mg Lorazepam (Lorazepam 1 Mg Tablet) 2 mg PO Q6H [facility] Last Admin: 04/24/24 03:35 Dose: 2 mg Magnesium Hydroxide (Milk Of Magnesia 30 Ml Oral.Susp) 30 ml PO DAILY PRN PRN Reason: Constipation Naloxone HCl (Naloxone Hcl 0.4 Mg/Ml Vial) 0.04 mg IVPUSH Q5M PRN PRN Reason: Excessive sedation or RR < 8 Ondansetron HCl (Ondansetron Odt 4 Mg Tab.Rapdis) 4 mg TRANSLINGU Q8H PRN PRN Reason: Nausea and Vomiting Tamsulosin HCl (Tamsulosin Hcl 0.4 Mg Capsule) 0.4 mg PO BEDTIME [facility] Last Admin: 04/23/24 20:30 Dose: 0.4 mg Trazodone HCl (Trazodone Hcl 50 Mg Tablet) 50 mg PO BEDTIME MRX1 PRN PRN Reason: Insomnia Last Admin: 04/23/24 20:30 Dose: 50 mg Allergies Allergies Allergy/AdvReac Type Severity Reaction Status Date / Time No Known Allergies [NKA] Allergy Unknown NONE Verified 04/11/24 15:35 Assessment & Plan Assessment & Plan (1) Catatonia: Status: Acute Code(s): F06.1 - Catatonic disorder due to known physiological condition (2) Schizoaffective disorder: Status: Acute Code(s): F25.9 - Schizoaffective disorder, unspecified (3) Tardive dyskinesia: Status: Acute Code(s): G24.01 - Drug induced subacute dyskinesia Plan The patient is a 58-year-old male with a history of schizoaffective disorder bipolar type and catatonia who recently relapsed on catatonic symptoms after he missed an ECT. He was previously admitted into this facility a few weeks ago and he was fairly stable with Clozaril, Ativan and ECT. Plan 1. Continue with Clozaril as prescribed. 2. Continue with Ativan 2 mg p.o. t.i.d. for catatonia. 3. Continue with ECT. Reason for continued inpatient stay Substantial Risk for: inability to function, rapid decompensation and med/psych decompensation Time Spent With Patient Time: Total time managing care of this patient today __20__ minutes.
--- NOTE | 2024-04-24 15:41 | PC.NURSE ---
1545 tova held as Benjamin is sleeping due to post ECT procedure. Dr. Beauchamp notified.
[2024-04-24] MEDS: Glycopyrrolate 1 MG TABLET 0.5 MG PO (19:30)
[2024-04-24] MEDS: Tamsulosin HCL 0.4 MG CAPSULE PO (19:30)
[2024-04-24] MEDS: cloZAPine 100 MG TABLET 200 MG PO (19:31)
[2024-04-25] MEDS: LORazepam 1 MG TABLET 2 MG PO ×4 (03:06→20:45)
[2024-04-25 08:54] VITALS: BP 111/58; PULSE 70; RESP 16; TEMP 36.1; O2SAT 95
[2024-04-25] MEDS: Glycopyrrolate 1 MG TABLET 0.5 MG PO ×2 (09:03→19:42)
[2024-04-25 14:56] VITALS: BMI 30.6
--- NOTE | 2024-04-25 16:23 | HO.PSYCHPN ---
Subjective Subjective Date of Service: 04/25/24 Reason For Visit: Schizoaffective Disorder Subjective Notes: Conditional Voluntary Interim History: The nursing staff reported no changes he remains isolative with psychomotor retardation. On interview the patient was able to answer yes or no questions. Mental Status Exam Mental Status Exam Patient Appearance: Appropriate Patient Orientation: Person and Situation Level of Consciousness: Awake and Appropriate Patient Behavior: Guarded and Passive Mood Description: Withdrawn Affect Description: Blunted Patient Cognition Impaired: Yes Ability to Follow Directions: Good Speech Pattern: Clear Hallucinations: None Delusions: Ideas of Reference Thought Process: Distracted and Slowed Thinking Thought Content: positive for [place] and positive for Poverty of Content Judgement: Fair Diagnostics Vital Signs (24Hr): Vital Signs - 24 hr 04/24/24 19:28 04/25/24 08:54 Temperature 97.7 F 96.9 F Pulse Rate 86 70 Respiratory Rate 17 16 Blood Pressure 123/69 111/58 L Pulse Oximetry 95 95 Oxygen Delivery Method Room Air Room Air BMI result Body Mass Index 30.6 Labs 04/24/24 11:58 04/11/24 18:32 Labs: Laboratory Results - last 48 hr 04/24/24 11:58 WBC 5.6 RBC 4.24 L Hgb 12.0 L Hct 36.8 L MCV 86.8 MCH 28.3 MCHC 32.6 RDW 13.3 Plt Count 125 L D MPV 11.7 Immature Gran % (Auto) 0.5 H Neut % (Auto) 69.6 Lymph % (Auto) 21.8 [place] % (Auto) 7.7 Eos % (Auto) 0.2 Baso % (Auto) 0.2 Lymph # (Auto) 1.2 [place] # (Auto) 0.4 Eos # (Auto) 0.0 Baso # (Auto) 0.0 Abs Immat Gran (auto) 0.03 Absolute Neuts (auto) 3.9 Absolute Nucleated RBC 0.000 Nucleated RBC % (auto) 0.0 Smear Tech's Comments VERIFIED Medications Medications Current Medications Acetaminophen (Acetaminophen 325 Mg Tablet) 650 mg PO Q6H PRN PRN Reason: Headache/Pain Mild Scale (1-3) Al Hydroxide/Mg Hydroxide (Magnesium Hydrox/Alum Hydrox 30 Ml Oral.Susp) 30 ml PO Q6H PRN PRN Reason: Heartburn/Nausea Clozapine (Clozapine 100 Mg Tablet) 200 mg PO BEDTIME [facility] Last Admin: 04/24/24 19:31 Dose: 200 mg Glycopyrrolate (Glycopyrrolate 1 Mg Tablet) 0.5 mg PO BID ON LICENSE OF [facility] Last Admin: 04/25/24 09:03 Dose: 0.5 mg Hydroxyzine HCl (Hydroxyzine Hcl 25 Mg Tablet) 25 mg PO Q6H PRN PRN Reason: Anxiety Last Admin: 04/23/24 20:30 Dose: 25 mg Lorazepam (Lorazepam 1 Mg Tablet) 2 mg PO Q6H ON LICENSE OF [facility] Last Admin: 04/25/24 15:19 Dose: 2 mg Magnesium Hydroxide (Milk Of Magnesia 30 Ml Oral.Susp) 30 ml PO DAILY PRN PRN Reason: Constipation Naloxone HCl (Naloxone Hcl 0.4 Mg/Ml Vial) 0.04 mg IVPUSH Q5M PRN PRN Reason: Excessive sedation or RR < 8 Ondansetron HCl (Ondansetron Odt 4 Mg Tab.Rapdis) 4 mg TRANSLINGU Q8H PRN PRN Reason: Nausea and Vomiting Tamsulosin HCl (Tamsulosin Hcl 0.4 Mg Capsule) 0.4 mg PO BEDTIME ON LICENSE OF [facility] Last Admin: 04/24/24 19:30 Dose: 0.4 mg Trazodone HCl (Trazodone Hcl 50 Mg Tablet) 50 mg PO BEDTIME MRX1 PRN PRN Reason: Insomnia Last Admin: 04/23/24 20:30 Dose: 50 mg Allergies Allergies Allergy/AdvReac Type Severity Reaction Status Date / Time No Known Allergies [NKA] Allergy Unknown NONE Verified 04/11/24 15:35 Assessment & Plan Assessment & Plan (1) Catatonia: Status: Acute Code(s): F06.1 - Catatonic disorder due to known physiological condition (2) Schizoaffective disorder: Status: Acute Code(s): F25.9 - Schizoaffective disorder, unspecified (3) Tardive dyskinesia: Status: Acute Code(s): G24.01 - Drug induced subacute dyskinesia Plan The patient is a 58-year-old male with a history of schizoaffective disorder bipolar type and catatonia who recently relapsed on catatonic symptoms after he missed an ECT. He was previously admitted into this facility a few weeks ago and he was fairly stable with Clozaril, Ativan and ECT. Plan 1. Continue with Clozaril as prescribed. 2. Continue with Ativan 2 mg p.o. t.i.d. for catatonia. 3. Continue with ECT. Reason for continued inpatient stay Substantial Risk for: inability to function, rapid decompensation and med/psych decompensation Time Spent With Patient Time: Total time managing care of this patient today __20__ minutes.
[2024-04-25 19:39] VITALS: BP 138/96; PULSE 82; RESP 17; TEMP 36.4; O2SAT 97
[2024-04-25] MEDS: cloZAPine 100 MG TABLET 200 MG PO (19:42)
[2024-04-25] MEDS: Tamsulosin HCL 0.4 MG CAPSULE PO (19:43)
[2024-04-26] MEDS: LORazepam 1 MG TABLET 2 MG PO ×3 (05:30→17:31)
[2024-04-26 08:52] VITALS: BP 154/73; PULSE 72; RESP 20; TEMP 36.4; O2SAT 96
[2024-04-26] MEDS: Glycopyrrolate 1 MG TABLET 0.5 MG PO ×2 (08:54→20:11)
--- NOTE | 2024-04-26 14:08 | P.PNPSI_ITS ---
Subjective Subjective Date of Service: 04/26/24 Reason For Visit: Schizoaffective Disorder Subjective Notes: Conditional Voluntary Interim History: The nursing staff reported the patient remains catatonic with thought blocking he slept 7 hours. Yesterday I spoke with her father who does not want to have more ECT at this moment since he says that he has had 6 and it is too much. I explained him that it is harming him not to have ECT he wants to reassessed next week. On interview the patient remains catatonic. Mental Status Exam Mental Status Exam Patient Appearance: Appropriate Patient Orientation: Person and Situation Level of Consciousness: Awake Patient Behavior: Guarded and Passive Mood Description: Withdrawn Affect Description: Blunted Patient Cognition Impaired: Yes Ability to Follow Directions: Good Speech Pattern: Clear Hallucinations: None Delusions: Paranoid Ideation Thought Process: Slowed Thinking Thought Content: positive for Thought Blocking Judgement: Poor Diagnostics Vital Signs (24Hr): Vital Signs - 24 hr 04/25/24 19:39 04/26/24 08:52 Temperature 97.5 F 97.5 F Pulse Rate 82 72 Respiratory Rate 17 20 Blood Pressure 138/96 H 154/73 H Pulse Oximetry 97 96 Oxygen Delivery Method Room Air Room Air BMI result Body Mass Index 30.6 Labs 04/24/24 11:58 04/11/24 18:32 Medications Medications Current Medications Acetaminophen (Acetaminophen 325 Mg Tablet) 650 mg PO Q6H PRN PRN Reason: Headache/Pain Mild Scale (1-3) Al Hydroxide/Mg Hydroxide (Magnesium Hydrox/Alum Hydrox 30 Ml Oral.Susp) 30 ml PO Q6H PRN PRN Reason: Heartburn/Nausea Clozapine (Clozapine 100 Mg Tablet) 200 mg PO BEDTIME [facility] Last Admin: 04/25/24 19:42 Dose: 200 mg Glycopyrrolate (Glycopyrrolate 1 Mg Tablet) 0.5 mg PO BID [facility] Last Admin: 04/26/24 08:54 Dose: 0.5 mg Hydroxyzine HCl (Hydroxyzine Hcl 25 Mg Tablet) 25 mg PO Q6H PRN PRN Reason: Anxiety Last Admin: 04/23/24 20:30 Dose: 25 mg Lorazepam (Lorazepam 1 Mg Tablet) 2 mg PO Q6H [facility] Last Admin: 04/26/24 09:08 Dose: 2 mg Magnesium Hydroxide (Milk Of Magnesia 30 Ml Oral.Susp) 30 ml PO DAILY PRN PRN Reason: Constipation Naloxone HCl (Naloxone Hcl 0.4 Mg/Ml Vial) 0.04 mg IVPUSH Q5M PRN PRN Reason: Excessive sedation or RR < 8 Ondansetron HCl (Ondansetron Odt 4 Mg Tab.Rapdis) 4 mg TRANSLINGU Q8H PRN PRN Reason: Nausea and Vomiting Tamsulosin HCl (Tamsulosin Hcl 0.4 Mg Capsule) 0.4 mg PO BEDTIME [facility] Last Admin: 04/25/24 19:43 Dose: 0.4 mg Trazodone HCl (Trazodone Hcl 50 Mg Tablet) 50 mg PO BEDTIME MRX1 PRN PRN Reason: Insomnia Last Admin: 04/23/24 20:30 Dose: 50 mg Allergies Allergies Allergy/AdvReac Type Severity Reaction Status Date / Time No Known Allergies [NKA] Allergy Unknown NONE Verified 04/11/24 15:35 Assessment & Plan Assessment & Plan (1) Catatonia: Status: Acute Code(s): F06.1 - Catatonic disorder due to known physiological condition (2) Schizoaffective disorder: Status: Acute Code(s): F25.9 - Schizoaffective disorder, unspecified (3) Tardive dyskinesia: Status: Acute Code(s): G24.01 - Drug induced subacute dyskinesia Plan The patient is a 58-year-old male with a history of schizoaffective disorder bipolar type and catatonia who recently relapsed on catatonic symptoms after he missed an ECT. He was previously admitted into this facility a few weeks ago and he was fairly stable with Clozaril, Ativan and ECT. Plan 1. Continue with Clozaril as prescribed. 2. Continue with Ativan 2 mg p.o. t.i.d. for catatonia. 3. Continue with ECT. But her father has order to stop it until next week Reason for continued inpatient stay Substantial Risk for: inability to function, rapid decompensation and med/psych decompensation Time Spent With Patient Time: Total time managing care of this patient today __20__ minutes.
[2024-04-26 20:00] VITALS: BP 141/74; PULSE 76; RESP 16; TEMP 37.6; O2SAT 94
[2024-04-26] MEDS: traZODone HCL 50 MG TABLET PO (20:10)
[2024-04-26] MEDS: cloZAPine 100 MG TABLET 200 MG PO (20:10)
[2024-04-26] MEDS: hydrOXYzine HCL 25 MG TABLET PO (20:11)
[2024-04-26] MEDS: Tamsulosin HCL 0.4 MG CAPSULE PO (20:12)
[2024-04-27] MEDS: LORazepam 1 MG TABLET 2 MG PO ×4 (02:28→17:45)
[2024-04-27 09:05] VITALS: BP 124/44; PULSE 74; RESP 17; TEMP 35.7; O2SAT 97
[2024-04-27] MEDS: Glycopyrrolate 1 MG TABLET 0.5 MG PO ×2 (09:06→20:47)
--- NOTE | 2024-04-27 19:02 | HO.PSYCHPN ---
Subjective Subjective Date of Service: 04/27/24 Reason For Visit: Schizoaffective Disorder Subjective Notes: Conditional Voluntary Healthcare Proxy: Yes Interim History: Pt scae reviewed staff pt seen . Pt remains withdrawn ect on hold cooperative with medication Medication Compliance: Yes Mental Status Exam Mental Status Exam Patient Appearance: Appropriate Patient Orientation: Person, Place and Situation Level of Consciousness: Awake Patient Behavior: Guarded and Passive Mood Description: Withdrawn Affect Description: Constricted and Blunted Patient Cognition Impaired: Yes Ability to Follow Directions: Good Speech Pattern: Clear Hallucinations: None Delusions: Paranoid Ideation Thought Process: Slowed Thinking Thought Content: positive for Thought Blocking Judgement: Poor Diagnostics Vital Signs (24Hr): Vital Signs - 24 hr 04/26/24 20:00 04/27/24 09:05 Temperature 99.7 F 96.3 F L Pulse Rate 76 74 Respiratory Rate 16 17 Blood Pressure 141/74 H 124/44 L Pulse Oximetry 94 97 Oxygen Delivery Method Room Air Room Air BMI result Body Mass Index 30.6 Labs 04/24/24 11:58 04/11/24 18:32 Medications Medications Current Medications Acetaminophen (Acetaminophen 325 Mg Tablet) 650 mg PO Q6H PRN PRN Reason: Headache/Pain Mild Scale (1-3) Al Hydroxide/Mg Hydroxide (Magnesium Hydrox/Alum Hydrox 30 Ml Oral.Susp) 30 ml PO Q6H PRN PRN Reason: Heartburn/Nausea Clozapine (Clozapine 100 Mg Tablet) 200 mg PO BEDTIME [facility] Last Admin: 04/26/24 20:10 Dose: 200 mg Glycopyrrolate (Glycopyrrolate 1 Mg Tablet) 0.5 mg PO BID [facility] Last Admin: 04/27/24 09:06 Dose: 0.5 mg Hydroxyzine HCl (Hydroxyzine Hcl 25 Mg Tablet) 25 mg PO Q6H PRN PRN Reason: Anxiety Last Admin: 04/26/24 20:11 Dose: 25 mg Lorazepam (Lorazepam 1 Mg Tablet) 2 mg PO Q6H [facility] Last Admin: 04/27/24 17:45 Dose: 2 mg Magnesium Hydroxide (Milk Of Magnesia 30 Ml Oral.Susp) 30 ml PO DAILY PRN PRN Reason: Constipation Naloxone HCl (Naloxone Hcl 0.4 Mg/Ml Vial) 0.04 mg IVPUSH Q5M PRN PRN Reason: Excessive sedation or RR < 8 Ondansetron HCl (Ondansetron Odt 4 Mg Tab.Rapdis) 4 mg TRANSLINGU Q8H PRN PRN Reason: Nausea and Vomiting Tamsulosin HCl (Tamsulosin Hcl 0.4 Mg Capsule) 0.4 mg PO BEDTIME [facility] Last Admin: 04/26/24 20:12 Dose: 0.4 mg Trazodone HCl (Trazodone Hcl 50 Mg Tablet) 50 mg PO BEDTIME MRX1 PRN PRN Reason: Insomnia Last Admin: 04/26/24 20:10 Dose: 50 mg Allergies Allergies Allergy/AdvReac Type Severity Reaction Status Date / Time No Known Allergies [NKA] Allergy Unknown NONE Verified 04/11/24 15:35 Assessment & Plan Assessment & Plan (1) Catatonia: Status: Acute Code(s): F06.1 - Catatonic disorder due to known physiological condition (2) Schizoaffective disorder: Status: Acute Code(s): F25.9 - Schizoaffective disorder, unspecified (3) Tardive dyskinesia: Status: Acute Code(s): G24.01 - Drug induced subacute dyskinesia Plan The patient is a 58-year-old male with a history of schizoaffective disorder bipolar type and catatonia who recently relapsed on catatonic symptoms after he missed an ECT. He was previously admitted into this facility a few weeks ago and he was fairly stable with Clozaril, Ativan and ECT. Plan 1. Continue with Clozaril as prescribed. 2. Continue with Ativan 2 mg p.o. t.i.d. for catatonia. 3. Continue with ECT. But her father has order to stop it until next week 04/27/23 Cont medication hcp father not in favor of ect at [facility] pt unable to engage significantly at present with catatonia Reason for continued inpatient stay Substantial Risk for: inability to function, rapid decompensation and med/psych decompensation Time Spent With Patient Time: Total time managing care of this patient today ____ minutes.
[2024-04-27 20:00] VITALS: BP 147/79; PULSE 87; TEMP 36.3; O2SAT 96
[2024-04-27] MEDS: Tamsulosin HCL 0.4 MG CAPSULE PO (20:47)
[2024-04-27] MEDS: cloZAPine 100 MG TABLET 200 MG PO (20:47)
[2024-04-27] MEDS: traZODone HCL 50 MG TABLET PO (20:49)
[2024-04-28] MEDS: LORazepam 1 MG TABLET 2 MG PO ×3 (06:46→17:17)
[2024-04-28 08:37] VITALS: BP 137/69; PULSE 81; RESP 18; TEMP 35.8; O2SAT 93
--- NOTE | 2024-04-28 10:43 | HO.PSYCHPN ---
Subjective Subjective Date of Service: 04/28/24 Reason For Visit: Schizoaffective Disorder Subjective Notes: Conditional Voluntary Interim History: Patient remains somewhat withdrawn dysphoric slowed mentation difficulty to get clear mental status. He has generally come out after lunch Medication Compliance: Yes Attending Groups: No Review of Systems Medical Review of Systems: unchanged Mental Status Exam Mental Status Exam Patient Appearance: Fatigued and Disheveled Patient Orientation: Person, Place and Situation Level of Consciousness: Awake and Lethargic Patient Behavior: Guarded and Passive Mood Description: Withdrawn Affect Description: Constricted and Blunted Patient Cognition Impaired: Yes Ability to Follow Directions: Fair Speech Pattern: Clear Hallucinations: None Delusions: Paranoid Ideation Thought Process: Slowed Thinking Thought Content: positive for Thought Blocking Judgement: Poor Judgement and Insight: Difficult to assess mental status and cognitive status given catatonia Diagnostics Vital Signs (24Hr): Vital Signs - 24 hr 04/27/24 20:00 04/28/24 08:37 Temperature 97.4 F 96.5 F L Pulse Rate 87 81 Respiratory Rate 18 Blood Pressure 147/79 H 137/69 Pulse Oximetry 96 93 Oxygen Delivery Method Room Air Room Air BMI result Body Mass Index 30.6 Labs 04/24/24 11:58 04/11/24 18:32 Medications Medications Current Medications Acetaminophen (Acetaminophen 325 Mg Tablet) 650 mg PO Q6H PRN PRN Reason: Headache/Pain Mild Scale (1-3) Al Hydroxide/Mg Hydroxide (Magnesium Hydrox/Alum Hydrox 30 Ml Oral.Susp) 30 ml PO Q6H PRN PRN Reason: Heartburn/Nausea Clozapine (Clozapine 100 Mg Tablet) 200 mg PO BEDTIME [facility] Last Admin: 04/27/24 20:47 Dose: 200 mg Glycopyrrolate (Glycopyrrolate 1 Mg Tablet) 0.5 mg PO BID [facility] Last Admin: 04/27/24 20:47 Dose: 0.5 mg Hydroxyzine HCl (Hydroxyzine Hcl 25 Mg Tablet) 25 mg PO Q6H PRN PRN Reason: Anxiety Last Admin: 04/26/24 20:11 Dose: 25 mg Lorazepam (Lorazepam 1 Mg Tablet) 2 mg PO Q6H [facility] Last Admin: 04/28/24 06:46 Dose: 2 mg Magnesium Hydroxide (Milk Of Magnesia 30 Ml Oral.Susp) 30 ml PO DAILY PRN PRN Reason: Constipation Naloxone HCl (Naloxone Hcl 0.4 Mg/Ml Vial) 0.04 mg IVPUSH Q5M PRN PRN Reason: Excessive sedation or RR < 8 Ondansetron HCl (Ondansetron Odt 4 Mg Tab.Rapdis) 4 mg TRANSLINGU Q8H PRN PRN Reason: Nausea and Vomiting Tamsulosin HCl (Tamsulosin Hcl 0.4 Mg Capsule) 0.4 mg PO BEDTIME [facility] Last Admin: 04/27/24 20:47 Dose: 0.4 mg Trazodone HCl (Trazodone Hcl 50 Mg Tablet) 50 mg PO BEDTIME MRX1 PRN PRN Reason: Insomnia Last Admin: 04/27/24 20:49 Dose: 50 mg Allergies Allergies Allergy/AdvReac Type Severity Reaction Status Date / Time No Known Allergies [NKA] Allergy Unknown NONE Verified 04/11/24 15:35 Assessment & Plan Assessment & Plan (1) Catatonia: Status: Acute Code(s): F06.1 - Catatonic disorder due to known physiological condition (2) Schizoaffective disorder: Status: Acute Code(s): F25.9 - Schizoaffective disorder, unspecified (3) Tardive dyskinesia: Status: Acute Code(s): G24.01 - Drug induced subacute dyskinesia Plan The patient is a 58-year-old male with a history of schizoaffective disorder bipolar type and catatonia who recently relapsed on catatonic symptoms after he missed an ECT. He was previously admitted into this facility a few weeks ago and he was fairly stable with Clozaril, Ativan and ECT. Plan 1. Continue with Clozaril as prescribed. 2. Continue with Ativan 2 mg p.o. t.i.d. for catatonia. 3. Continue with ECT. But her father has order to stop it until next week 04/27/23 Cont medication hcp father not in favor of ect at [facility] pt unable to engage significantly at present with catatonia 04/28/2023 Respiratory order to check oxygen and limited sleep study as possible. May benefit from alternative considerations patient has benefitted previously from ECT tends not to respond quickly. Current ECT on hold at request of his father Reason for continued inpatient stay Substantial Risk for: inability to function, rapid decompensation and med/psych decompensation Time Spent With Patient Time: Total time managing care of this patient today ____ minutes.
[2024-04-28] MEDS: Glycopyrrolate 1 MG TABLET 0.5 MG PO ×2 (11:44→20:35)
[2024-04-28 12:29] LABS: Neut%MD 70.7 %; Neutrophils Absolute Auto 5.4 x10*3/uL (2.0-8.3); WBCANC 7.6 X10*3/uL
[2024-04-28 20:00] VITALS: BP 128/67; PULSE 85; RESP 16; TEMP 36.3; O2SAT 97
[2024-04-28] MEDS: cloZAPine 100 MG TABLET 200 MG PO (20:34)
[2024-04-28] MEDS: Tamsulosin HCL 0.4 MG CAPSULE PO (20:34)
[2024-04-28] MEDS: traZODone HCL 50 MG TABLET PO (20:34)
[2024-04-29] MEDS: LORazepam 1 MG TABLET 2 MG PO ×4 (00:39→19:52)
[2024-04-29 11:52] VITALS: BP 148/72; PULSE 85; RESP 16; TEMP 36.8; O2SAT 95
[2024-04-29] MEDS: Glycopyrrolate 1 MG TABLET 0.5 MG PO ×2 (11:53→20:02)
--- NOTE | 2024-04-29 14:58 | HO.PSYCHPN ---
Subjective Subjective Date of Service: 04/29/24 Reason For Visit: Schizoaffective Disorder Subjective Notes: Conditional Voluntary Healthcare Proxy: Yes Interim History: The nursing staff reported the patient had been catatonic, he still can walk around but he has extremely delayed responses. The executive secretary social welfare will follow with his father, the father wants to try medications but it so far he has failed. Mental Status Exam Mental Status Exam Patient Appearance: Appropriate and Unkempt Patient Orientation: Person Level of Consciousness: Lethargic Patient Behavior: Posturing and Passive Mood Description: Withdrawn Affect Description: Blunted Patient Cognition Impaired: Yes Ability to Follow Directions: Fair Speech Pattern: Impoverished and No Speech Hallucinations: Auditory Delusions: Paranoid Ideation and Ideas of Reference Thought Process: Distracted and Slowed Thinking Thought Content: positive for [place] and positive for Poverty of Content Judgement: Poor Diagnostics Vital Signs (24Hr): Vital Signs - 24 hr 04/28/24 20:00 04/29/24 11:52 Temperature 97.4 F 98.2 F Pulse Rate 85 85 Respiratory Rate 16 16 Blood Pressure 128/67 148/72 H Pulse Oximetry 97 95 Oxygen Delivery Method Room Air Room Air BMI result Body Mass Index 30.6 Labs 04/24/24 11:58 04/11/24 18:32 Labs: Laboratory Results - last 48 hr 04/28/24 12:04 Absolute Neuts (auto) 5.4 Medications Medications Current Medications Acetaminophen (Acetaminophen 325 Mg Tablet) 650 mg PO Q6H PRN PRN Reason: Headache/Pain Mild Scale (1-3) Al Hydroxide/Mg Hydroxide (Magnesium Hydrox/Alum Hydrox 30 Ml Oral.Susp) 30 ml PO Q6H PRN PRN Reason: Heartburn/Nausea Clozapine (Clozapine 100 Mg Tablet) 200 mg PO BEDTIME [facility] Last Admin: 04/28/24 20:34 Dose: 200 mg Glycopyrrolate (Glycopyrrolate 1 Mg Tablet) 0.5 mg PO BID [facility] Last Admin: 04/29/24 11:53 Dose: 0.5 mg Hydroxyzine HCl (Hydroxyzine Hcl 25 Mg Tablet) 25 mg PO Q6H PRN PRN Reason: Anxiety Last Admin: 04/26/24 20:11 Dose: 25 mg Lorazepam (Lorazepam 1 Mg Tablet) 2 mg PO Q6H [facility] Last Admin: 04/29/24 14:47 Dose: 2 mg Magnesium Hydroxide (Milk Of Magnesia 30 Ml Oral.Susp) 30 ml PO DAILY PRN PRN Reason: Constipation Naloxone HCl (Naloxone Hcl 0.4 Mg/Ml Vial) 0.04 mg IVPUSH Q5M PRN PRN Reason: Excessive sedation or RR < 8 Ondansetron HCl (Ondansetron Odt 4 Mg Tab.Rapdis) 4 mg TRANSLINGU Q8H PRN PRN Reason: Nausea and Vomiting Tamsulosin HCl (Tamsulosin Hcl 0.4 Mg Capsule) 0.4 mg PO BEDTIME [facility] Last Admin: 04/28/24 20:34 Dose: 0.4 mg Trazodone HCl (Trazodone Hcl 50 Mg Tablet) 50 mg PO BEDTIME MRX1 PRN PRN Reason: Insomnia Last Admin: 04/28/24 20:34 Dose: 50 mg Allergies Allergies Allergy/AdvReac Type Severity Reaction Status Date / Time No Known Allergies [NKA] Allergy Unknown NONE Verified 04/11/24 15:35 Assessment & Plan Assessment & Plan (1) Catatonia: Status: Acute Code(s): F06.1 - Catatonic disorder due to known physiological condition (2) Schizoaffective disorder: Status: Acute Code(s): F25.9 - Schizoaffective disorder, unspecified (3) Tardive dyskinesia: Status: Acute Code(s): G24.01 - Drug induced subacute dyskinesia Plan The patient is a 58-year-old male with a history of schizoaffective disorder bipolar type and catatonia who recently relapsed on catatonic symptoms after he missed an ECT. He was previously admitted into this facility a few weeks ago and he was fairly stable with Clozaril, Ativan and ECT. Plan 1. Continue with Clozaril as prescribed. 2. Continue with Ativan 2 mg p.o. t.i.d. for catatonia. 3. Continue with ECT. But her father has order to stop it until next week Reason for continued inpatient stay Substantial Risk for: inability to function, rapid decompensation and med/psych decompensation Time Spent With Patient Time: Total time managing care of this patient today __20__ minutes.
[2024-04-29 20:00] VITALS: BP 125/67; PULSE 82; TEMP 36.1; O2SAT 97
[2024-04-29] MEDS: cloZAPine 100 MG TABLET 200 MG PO (20:02)
[2024-04-29] MEDS: Tamsulosin HCL 0.4 MG CAPSULE PO (20:03)
[2024-04-29] MEDS: traZODone HCL 50 MG TABLET PO (20:03)
[2024-04-30] MEDS: LORazepam 1 MG TABLET 2 MG PO ×4 (00:43→17:18)
[2024-04-30 08:00] VITALS: BP 95/55; PULSE 83; RESP 16; TEMP 36.9; O2SAT 97
--- NOTE | 2024-04-30 08:03 | PC.RT ---
Sleep Study not done last night due to no sitter availabale. Will try again kelli
[2024-04-30] MEDS: Glycopyrrolate 1 MG TABLET 0.5 MG PO ×2 (11:37→20:48)
--- NOTE | 2024-04-30 15:49 | HO.PSYCHPN ---
Subjective Subjective Date of Service: 04/30/24 Reason For Visit: Schizoaffective Disorder Subjective Notes: Conditional Voluntary Healthcare Proxy: Yes Interim History: The nursing staff reported the patient had been limited verbal responses. The occupational therapist reported that he was able to participate on one-to-one. On interview the patient is still catatonic but slightly brighter than yesterday. His father does not want to do ECT for this week and we will reassess at the end of the week. Mental Status Exam Mental Status Exam Patient Appearance: Appropriate Patient Orientation: Person and Situation Level of Consciousness: Awake Patient Behavior: Guarded and Passive Mood Description: Withdrawn Affect Description: Blunted Patient Cognition Impaired: Yes Ability to Follow Directions: Fair Speech Pattern: Impoverished Hallucinations: None Delusions: Paranoid Ideation and Ideas of Reference Thought Process: Slowed Thinking Thought Content: positive for Poverty of Content and positive for Thought Blocking Judgement: Fair Diagnostics Vital Signs (24Hr): Vital Signs - 24 hr 04/29/24 20:00 04/30/24 08:00 Temperature 96.9 F 98.5 F Pulse Rate 82 83 Respiratory Rate 16 Blood Pressure 125/67 95/55 L Pulse Oximetry 97 97 Oxygen Delivery Method Room Air Room Air BMI result Body Mass Index 30.6 Labs 04/24/24 11:58 04/11/24 18:32 Medications Medications Current Medications Acetaminophen (Acetaminophen 325 Mg Tablet) 650 mg PO Q6H PRN PRN Reason: Headache/Pain Mild Scale (1-3) Al Hydroxide/Mg Hydroxide (Magnesium Hydrox/Alum Hydrox 30 Ml Oral.Susp) 30 ml PO Q6H PRN PRN Reason: Heartburn/Nausea Clozapine (Clozapine 100 Mg Tablet) 200 mg PO BEDTIME [facility] Last Admin: 04/29/24 20:02 Dose: 200 mg Glycopyrrolate (Glycopyrrolate 1 Mg Tablet) 0.5 mg PO BID [facility] Last Admin: 04/30/24 11:37 Dose: 0.5 mg Hydroxyzine HCl (Hydroxyzine Hcl 25 Mg Tablet) 25 mg PO Q6H PRN PRN Reason: Anxiety Last Admin: 04/26/24 20:11 Dose: 25 mg Lorazepam (Lorazepam 1 Mg Tablet) 2 mg PO Q6H [facility] Last Admin: 04/30/24 11:41 Dose: 2 mg Magnesium Hydroxide (Milk Of Magnesia 30 Ml Oral.Susp) 30 ml PO DAILY PRN PRN Reason: Constipation Naloxone HCl (Naloxone Hcl 0.4 Mg/Ml Vial) 0.04 mg IVPUSH Q5M PRN PRN Reason: Excessive sedation or RR < 8 Ondansetron HCl (Ondansetron Odt 4 Mg Tab.Rapdis) 4 mg TRANSLINGU Q8H PRN PRN Reason: Nausea and Vomiting Tamsulosin HCl (Tamsulosin Hcl 0.4 Mg Capsule) 0.4 mg PO BEDTIME [facility] Last Admin: 04/29/24 20:03 Dose: 0.4 mg Trazodone HCl (Trazodone Hcl 50 Mg Tablet) 50 mg PO BEDTIME MRX1 PRN PRN Reason: Insomnia Last Admin: 04/29/24 20:03 Dose: 50 mg Allergies Allergies Allergy/AdvReac Type Severity Reaction Status Date / Time No Known Allergies [NKA] Allergy Unknown NONE Verified 04/11/24 15:35 Assessment & Plan Assessment & Plan (1) Catatonia: Status: Acute Code(s): F06.1 - Catatonic disorder due to known physiological condition (2) Schizoaffective disorder: Status: Acute Code(s): F25.9 - Schizoaffective disorder, unspecified (3) Tardive dyskinesia: Status: Acute Code(s): G24.01 - Drug induced subacute dyskinesia Plan The patient is a 58-year-old male with a history of schizoaffective disorder bipolar type and catatonia who recently relapsed on catatonic symptoms after he missed an ECT. He was previously admitted into this facility a few weeks ago and he was fairly stable with Clozaril, Ativan and ECT. Plan 1. Continue with Clozaril as prescribed. 2. Continue with Ativan 2 mg p.o. t.i.d. for catatonia. 3. Continue with ECT. But her father has order to stop it until next week. Reason for continued inpatient stay Substantial Risk for: inability to function, rapid decompensation and med/psych decompensation Time Spent With Patient Time: Total time managing care of this patient today __20__ minutes.
[2024-04-30 20:00] VITALS: BP 140/70; PULSE 78; RESP 16; TEMP 36.2; O2SAT 99
[2024-04-30] MEDS: cloZAPine 100 MG TABLET 200 MG PO (20:47)
[2024-04-30] MEDS: Tamsulosin HCL 0.4 MG CAPSULE PO (20:49)
[2024-05-01] MEDS: LORazepam 1 MG TABLET 2 MG PO ×4 (00:22→17:44)
[2024-05-01 08:00] VITALS: BP 142/68; PULSE 76; RESP 16; TEMP 37.1; O2SAT 97
[2024-05-01] MEDS: Glycopyrrolate 1 MG TABLET 0.5 MG PO ×2 (10:31→20:31)
--- NOTE | 2024-05-01 15:54 | HO.PSYCHPN ---
Subjective Subjective Date of Service: 05/01/24 Reason For Visit: Schizoaffective Disorder Subjective Notes: Conditional Voluntary Healthcare Proxy: Yes Interim History: The nursing staff reported the patient remains catatonic but he is walking by himself and eating well. He slept well last night. His father wants to hold ECT for this week since he does not want to be dependent on this procedure. On interview the patient remains catatonic with delayed responses. Continue Clozaril and Ativan 2 mg 4 times a day. Mental Status Exam Mental Status Exam Patient Appearance: Appropriate Patient Orientation: Person and Situation Level of Consciousness: Awake and Appropriate Patient Behavior: Guarded and Passive Mood Description: Blunted Affect Description: Blunted Patient Cognition Impaired: Yes Ability to Follow Directions: Fair Speech Pattern: Impoverished Hallucinations: Auditory Delusions: Paranoid Ideation and Ideas of Reference Thought Process: Distracted and Slowed Thinking Thought Content: positive for [place] and positive for Poverty of Content Judgement: Fair Diagnostics Vital Signs (24Hr): Vital Signs - 24 hr 04/30/24 20:00 05/01/24 08:00 Temperature 97.1 F 98.8 F Pulse Rate 78 76 Respiratory Rate 16 16 Blood Pressure 140/70 H 142/68 H Pulse Oximetry 99 97 Oxygen Delivery Method Room Air Room Air BMI result Body Mass Index 30.6 Labs 04/24/24 11:58 04/11/24 18:32 Medications Medications Current Medications Acetaminophen (Acetaminophen 325 Mg Tablet) 650 mg PO Q6H PRN PRN Reason: Headache/Pain Mild Scale (1-3) Al Hydroxide/Mg Hydroxide (Magnesium Hydrox/Alum Hydrox 30 Ml Oral.Susp) 30 ml PO Q6H PRN PRN Reason: Heartburn/Nausea Clozapine (Clozapine 100 Mg Tablet) 200 mg PO BEDTIME [facility]RI[facility] Last Admin: 04/30/24 20:47 Dose: 200 mg Glycopyrrolate (Glycopyrrolate 1 Mg Tablet) 0.5 mg PO BID [facility]RI[facility] Last Admin: 05/01/24 10:31 Dose: 0.5 mg Hydroxyzine HCl (Hydroxyzine Hcl 25 Mg Tablet) 25 mg PO Q6H PRN PRN Reason: Anxiety Last Admin: 04/26/24 20:11 Dose: 25 mg Lorazepam (Lorazepam 1 Mg Tablet) 2 mg PO Q6H [facility] Last Admin: 05/01/24 12:21 Dose: 2 mg Magnesium Hydroxide (Milk Of Magnesia 30 Ml Oral.Susp) 30 ml PO DAILY PRN PRN Reason: Constipation Naloxone HCl (Naloxone Hcl 0.4 Mg/Ml Vial) 0.04 mg IVPUSH Q5M PRN PRN Reason: Excessive sedation or RR < 8 Ondansetron HCl (Ondansetron Odt 4 Mg Tab.Rapdis) 4 mg TRANSLINGU Q8H PRN PRN Reason: Nausea and Vomiting Tamsulosin HCl (Tamsulosin Hcl 0.4 Mg Capsule) 0.4 mg PO BEDTIME [facility] Last Admin: 04/30/24 20:49 Dose: 0.4 mg Trazodone HCl (Trazodone Hcl 50 Mg Tablet) 50 mg PO BEDTIME MRX1 PRN PRN Reason: Insomnia Last Admin: 04/29/24 20:03 Dose: 50 mg Allergies Allergies Allergy/AdvReac Type Severity Reaction Status Date / Time No Known Allergies [NKA] Allergy Unknown NONE Verified 04/11/24 15:35 Assessment & Plan Assessment & Plan (1) Catatonia: Status: Acute Code(s): F06.1 - Catatonic disorder due to known physiological condition (2) Schizoaffective disorder: Status: Acute Code(s): F25.9 - Schizoaffective disorder, unspecified (3) Tardive dyskinesia: Status: Acute Code(s): G24.01 - Drug induced subacute dyskinesia Plan The patient is a 58-year-old male with a history of schizoaffective disorder bipolar type and catatonia who recently relapsed on catatonic symptoms after he missed an ECT. He was previously admitted into this facility a few weeks ago and he was fairly stable with Clozaril, Ativan and ECT. Plan 1. Continue with Clozaril as prescribed. 2. Continue with Ativan 2 mg p.o. t.i.d. for catatonia. 3. ECT had been held for this week. We are going to try to convince his father to have ECT next week. Reason for continued inpatient stay Substantial Risk for: inability to function, rapid decompensation and med/psych decompensation Time Spent With Patient Time: Total time managing care of this patient today __20__ minutes.
[2024-05-01 20:00] VITALS: BP 133/73; PULSE 83; TEMP 36; O2SAT 98
[2024-05-01] MEDS: cloZAPine 100 MG TABLET 200 MG PO (20:31)
[2024-05-01] MEDS: Tamsulosin HCL 0.4 MG CAPSULE PO (20:31)
[2024-05-01] MEDS: traZODone HCL 50 MG TABLET PO (20:31)
--- NOTE | 2024-05-01 23:20 | PC.RT ---
no sitter for tonight
[2024-05-02] MEDS: LORazepam 1 MG TABLET 2 MG PO ×3 (06:57→16:57)
[2024-05-02 08:00] VITALS: BP 147/87; PULSE 80; RESP 16; TEMP 36.4; O2SAT 99
[2024-05-02] MEDS: Glycopyrrolate 1 MG TABLET 0.5 MG PO ×2 (09:07→20:55)
--- NOTE | 2024-05-02 15:43 | P.PNPSI_ITS ---
Subjective Subjective Date of Service: 05/02/24 Reason For Visit: Schizoaffective Disorder Subjective Notes: Conditional Voluntary Interim History: The nursing staff reported the patient remains catatonic even though he is able to eat and drink fluids. We talked with his father and he agreed to do ECT we will restart tomorrow. Mental Status Exam Mental Status Exam Patient Appearance: Appropriate Patient Orientation: Person Level of Consciousness: Lethargic Patient Behavior: Guarded Mood Description: Blunted Affect Description: Blunted Patient Cognition Impaired: Yes Ability to Follow Directions: Fair Speech Pattern: Impoverished and No Speech Hallucinations: None Delusions: Paranoid Ideation and Ideas of Reference Thought Process: Distracted and Slowed Thinking Thought Content: positive for Poverty of Content Judgement: Fair Diagnostics Vital Signs (24Hr): Vital Signs - 24 hr 05/01/24 20:00 05/02/24 08:00 Temperature 96.8 F 97.6 F Pulse Rate 83 80 Respiratory Rate 16 Blood Pressure 133/73 147/87 H Pulse Oximetry 98 99 Oxygen Delivery Method Room Air Room Air BMI result Body Mass Index 30.6 Labs 04/24/24 11:58 04/11/24 18:32 Medications Medications Current Medications Acetaminophen (Acetaminophen 325 Mg Tablet) 650 mg PO Q6H PRN PRN Reason: Headache/Pain Mild Scale (1-3) Al Hydroxide/Mg Hydroxide (Magnesium Hydrox/Alum Hydrox 30 Ml Oral.Susp) 30 ml PO Q6H PRN PRN Reason: Heartburn/Nausea Clozapine (Clozapine 100 Mg Tablet) 200 mg PO BEDTIME COUNTS INCLUDE 234 BEDS AT THE [facility] Last Admin: 05/01/24 20:31 Dose: 200 mg Glycopyrrolate (Glycopyrrolate 1 Mg Tablet) 0.5 mg PO BID COUNTS INCLUDE 234 BEDS AT THE [facility] Last Admin: 05/02/24 09:07 Dose: 0.5 mg Hydroxyzine HCl (Hydroxyzine Hcl 25 Mg Tablet) 25 mg PO Q6H PRN PRN Reason: Anxiety Last Admin: 04/26/24 20:11 Dose: 25 mg Lorazepam (Lorazepam 1 Mg Tablet) 2 mg PO Q6H COUNTS INCLUDE 234 BEDS AT THE [facility] Last Admin: 05/02/24 12:08 Dose: 2 mg Magnesium Hydroxide (Milk Of Magnesia 30 Ml Oral.Susp) 30 ml PO DAILY PRN PRN Reason: Constipation Naloxone HCl (Naloxone Hcl 0.4 Mg/Ml Vial) 0.04 mg IVPUSH Q5M PRN PRN Reason: Excessive sedation or RR < 8 Ondansetron HCl (Ondansetron Odt 4 Mg Tab.Rapdis) 4 mg TRANSLINGU Q8H PRN PRN Reason: Nausea and Vomiting Tamsulosin HCl (Tamsulosin Hcl 0.4 Mg Capsule) 0.4 mg PO BEDTIME KRISTIN Last Admin: 05/01/24 20:31 Dose: 0.4 mg Trazodone HCl (Trazodone Hcl 50 Mg Tablet) 50 mg PO BEDTIME MRX1 PRN PRN Reason: Insomnia Last Admin: 05/01/24 20:31 Dose: 50 mg Allergies Allergies Allergy/AdvReac Type Severity Reaction Status Date / Time No Known Allergies [NKA] Allergy Unknown NONE Verified 04/11/24 15:35 Assessment & Plan Assessment & Plan (1) Catatonia: Status: Acute Code(s): F06.1 - Catatonic disorder due to known physiological condition (2) Schizoaffective disorder: Status: Acute Code(s): F25.9 - Schizoaffective disorder, unspecified (3) Tardive dyskinesia: Status: Acute Code(s): G24.01 - Drug induced subacute dyskinesia Plan The patient is a 58-year-old male with a history of schizoaffective disorder bipolar type and catatonia who recently relapsed on catatonic symptoms after he missed an ECT. He was previously admitted into this facility a few weeks ago and he was fairly stable with Clozaril, Ativan and ECT. Plan 1. Continue with Clozaril as prescribed. 2. Continue with Ativan 2 mg p.o. t.i.d. for catatonia. 3. ECT had been held for this week. We are going to try to convince his father to have ECT next week. Finally, on May 02 the father agreed to restart ECT Reason for continued inpatient stay Substantial Risk for: inability to function, rapid decompensation and med/psych decompensation Time Spent With Patient Time: Total time managing care of this patient today __20__ minutes.
[2024-05-02 20:00] VITALS: BP 155/68; PULSE 84; RESP 16; TEMP 36.4; O2SAT 93
[2024-05-02] MEDS: Tamsulosin HCL 0.4 MG CAPSULE PO (20:55)
[2024-05-02] MEDS: cloZAPine 100 MG TABLET 200 MG PO (20:55)
[2024-05-02] MEDS: traZODone HCL 50 MG TABLET PO (20:55)
--- NOTE | 2024-05-02 23:29 | PC.RT ---
placed pt on sleep study for the night. hr 85 sats 85%. sitter in room with pt.
[2024-05-03] VITALS (11 sets, daily range): BP systolic 99–165; BP diastolic 71–92; PULSE 65–100; RESP 16–18; TEMP 36–37; O2SAT 66–100
[2024-05-03] MEDS: LORazepam 1 MG TABLET 2 MG PO ×3 (00:12→16:56)
--- NOTE | 2024-05-03 12:27 | P.CONAN_ITS ---
[facility] Active Problems Active Problems: All Active Problems Catatonia (Acute) Pre-op evaluation (Acute) Tardive dyskinesia (Acute) Schizoaffective disorder (Acute) Nocturnal hypoxia (Acute) Schizoaffective disorder, depressive type (Acute) Benign prostate hyperplasia (Acute) Essential hypertension (Acute) Right hip pain (Acute) Past Medical History Medical History Tardive dyskinesia Mild sleep apnea Nocturnal hypoxia Routine medical exam Joint inflammation of right hand and wrist Status post fall Adult general medical exam Screening for colon cancer Screening for prostate cancer Cough BPH (benign prostatic hyperplasia) Family History Family History Mother Cancer Father Kidney agenesis Family history of problems with anesthesia: No Surgical History Surgical History History of colonoscopy (~06/15/21) History of tooth extraction History of root canal procedure History of Problems with Anesthesia: No Social History Social History Household Members: None Housing: Unknown / Unable to assess Are you a primary day care worker to a significant other at home: No Do you presently have visiting nurse or other home services: Yes Unable to assess alcohol history related to: Unable to respond Alcohol intake: former Patient Tobacco Use Status: Never used Tobacco e-Cigarette/Vaping Use: Never Used Second Hand Smoke Exposure: No Use of substances other than those prescribed or required for medical reasons: Unknown Currently Displaying Signs/Symptoms of Drug Intoxication Withdrawal: No Advance Directives: No Advance Directives Information Provided: No Do you have thoughts of harming others: None Do you have a plan to hurt others: No Plan Recently lost weight without trying: No How much weight loss: Not applicable Eating poorly because of decreased appetite: No Nutrition screen score: 0 Nutrition Risks: No Nutritional Risk service: No Current occupational status: employed Sexual orientation: Straight/Heterosexual Cognitive needs: No Hearing needs: No Vision needs: No Meds Allergies Allergy/AdvReac Type Severity Reaction Status Date / Time No Known Allergies [NKA] Allergy Unknown NONE Verified 04/11/24 15:35 Active Medications: Current Medications Acetaminophen (Acetaminophen 325 Mg Tablet) 650 mg PO Q6H PRN PRN Reason: Headache/Pain Mild Scale (1-3) Al Hydroxide/Mg Hydroxide (Magnesium Hydrox/Alum Hydrox 30 Ml Oral.Susp) 30 ml PO Q6H PRN PRN Reason: Heartburn/Nausea Clozapine (Clozapine 100 Mg Tablet) 200 mg PO BEDTIME [facility] Last Admin: 05/02/24 20:55 Dose: 200 mg Glycopyrrolate (Glycopyrrolate 1 Mg Tablet) 0.5 mg PO BID [facility] Last Admin: 05/02/24 20:55 Dose: 0.5 mg Hydroxyzine HCl (Hydroxyzine Hcl 25 Mg Tablet) 25 mg PO Q6H PRN PRN Reason: Anxiety Last Admin: 04/26/24 20:11 Dose: 25 mg Lorazepam (Lorazepam 1 Mg Tablet) 2 mg PO Q6H [facility] Last Admin: 05/03/24 06:33 Dose: 2 mg Magnesium Hydroxide (Milk Of Magnesia 30 Ml Oral.Susp) 30 ml PO DAILY PRN PRN Reason: Constipation Naloxone HCl (Naloxone Hcl 0.4 Mg/Ml Vial) 0.04 mg IVPUSH Q5M PRN PRN Reason: Excessive sedation or RR < 8 Ondansetron HCl (Ondansetron Odt 4 Mg Tab.Rapdis) 4 mg TRANSLINGU Q8H PRN PRN Reason: Nausea and Vomiting Tamsulosin HCl (Tamsulosin Hcl 0.4 Mg Capsule) 0.4 mg PO BEDTIME [facility] Last Admin: 05/02/24 20:55 Dose: 0.4 mg Trazodone HCl (Trazodone Hcl 50 Mg Tablet) 50 mg PO BEDTIME MRX1 PRN PRN Reason: Insomnia Last Admin: 05/02/24 20:55 Dose: 50 mg Home Medications ?Medication ?Instructions ?Recorded ?Confirmed ?Last Taken ?Type benztropine 0.5 mg tablet 0.5 mg PO BID 04/11/24 04/12/24 Unknown History Exam Height,Weight and Vital Signs: Height 5 ft 9 in Weight 94.075 kg Last Vital Signs Temp 97.1 F 05/03/24 08:00 Pulse 78 05/03/24 08:00 Resp 18 05/03/24 08:00 BP 136/78 05/03/24 08:00 Pulse Ox 98 05/03/24 08:00 O2 Del Method Room Air 05/03/24 08:00 O2 Flow Rate 2 04/24/24 09:55 Pertinent Lab Results Pertinent Lab Results: Laboratory Tests 04/11/24 04/12/24 04/14/24 18:32 08:04 07:32 WBC 8.5 17.5 H RBC 4.50 L 4.59 L Hgb 12.8 L 13.2 L Hct 39.3 L 40.3 L MCV 87.3 87.8 MCH 28.4 28.8 MCHC 32.6 32.8 RDW 13.4 13.7 Plt Count 224 D 197 MPV 10.4 11.1 Immature Gran % (Auto) 0.9 H 0.6 H Neut % (Auto) 70.9 82.2 H Lymph % (Auto) 21.0 9.2 L Walker % (Auto) 7.1 7.8 Eos % (Auto) 0.0 0.0 Baso % (Auto) 0.1 0.2 Lymph # (Auto) 1.8 1.6 Walker # (Auto) 0.6 1.4 H Eos # (Auto) 0.0 0.0 Baso # (Auto) 0.0 0.0 Abs Immat Gran (auto) 0.08 H 0.11 H Absolute Neuts (auto) 6.1 14.4 H Absolute Nucleated RBC 0.000 0.000 Nucleated RBC % (auto) 0.0 0.0 Smear Tech's Comments Sodium 143 Potassium 4.2 Chloride 110 H Carbon Dioxide 26 Anion Gap 11 L BUN 21 H Creatinine 1.32 Estim Creat Clear Calc 59.5 Estimated GFR 55 Random Glucose 81 Estimat Average Glucose 111 Hemoglobin A1c % 5.5 Calcium 9.1 Magnesium 2.1 Total Bilirubin 0.5 AST 19 ALT 12 Alkaline Phosphatase 56 Total Protein 7.4 Albumin 3.9 Triglycerides 88 Cholesterol 149 LDL Cholesterol, Calc 101 H HDL Cholesterol 31 L Vitamin B12 437 Folate 17.1 TSH 0.36 Free T4 1.35 Urine Color Urine Appearance Urine pH Ur Specific [place] Urine Protein Urine Glucose (UA) Urine Ketones Urine Blood Urine Nitrite Ur Leukocyte Esterase Urine Opiates Screen Ur Buprenorphine Scrn Ur Oxycodone Screen Urine Methadone Screen Urine Fentanyl Screen Ur Barbiturates Screen Ur Phencyclidine Scrn Ur Amphetamines Screen U Benzodiazepines Scrn Urine Cocaine Screen U Marijuana (THC) Screen Ethyl Alcohol < 10 04/14/24 04/21/24 04/22/24 10:02 08:20 12:07 WBC RBC Hgb Hct MCV MCH MCHC RDW Plt Count MPV Immature Gran % (Auto) Neut % (Auto) Lymph % (Auto) Walker % (Auto) Eos % (Auto) Baso % (Auto) Lymph # (Auto) Walker # (Auto) Eos # (Auto) Baso # (Auto) Abs Immat Gran (auto) Absolute Neuts (auto) 4.4 4.3 Absolute Nucleated RBC Nucleated RBC % (auto) Smear Tech's Comments Sodium Potassium Chloride Carbon Dioxide Anion Gap BUN Creatinine Estim Creat Clear Calc Estimated GFR Random Glucose Estimat Average Glucose Hemoglobin A1c % Calcium Magnesium Total Bilirubin AST ALT Alkaline Phosphatase Total Protein Albumin Triglycerides Cholesterol LDL Cholesterol, Calc HDL Cholesterol Vitamin B12 Folate TSH Free T4 Urine Color Yellow Urine Appearance Clear Urine pH 5.5 Ur Specific [place] 1.020 Urine Protein Negative Urine Glucose (UA) Negative Urine Ketones Negative Urine Blood Negative Urine Nitrite Negative Ur Leukocyte Esterase Negative Urine Opiates Screen Not Detected Ur Buprenorphine Scrn Not Detected Ur Oxycodone Screen Not Detected Urine Methadone Screen Not Detected Urine Fentanyl Screen Not Detected Ur Barbiturates Screen Not Detected Ur Phencyclidine Scrn Not Detected Ur Amphetamines Screen Not Detected U Benzodiazepines Scrn Not Detected Urine Cocaine Screen Not Detected U Marijuana (THC) Screen Not Detected Ethyl Alcohol 04/24/24 04/28/24 11:58 12:04 WBC 5.6 RBC 4.24 L Hgb 12.0 L Hct 36.8 L MCV 86.8 MCH 28.3 MCHC 32.6 RDW 13.3 Plt Count 125 L D MPV 11.7 Immature Gran % (Auto) 0.5 H Neut % (Auto) 69.6 Lymph % (Auto) 21.8 Walker % (Auto) 7.7 Eos % (Auto) 0.2 Baso % (Auto) 0.2 Lymph # (Auto) 1.2 Walker # (Auto) 0.4 Eos # (Auto) 0.0 Baso # (Auto) 0.0 Abs Immat Gran (auto) 0.03 Absolute Neuts (auto) 3.9 5.4 Absolute Nucleated RBC 0.000 Nucleated RBC % (auto) 0.0 Smear Tech's Comments VERIFIED Sodium Potassium Chloride Carbon Dioxide Anion Gap BUN Creatinine Estim Creat Clear Calc Estimated GFR Random Glucose Estimat Average Glucose Hemoglobin A1c % Calcium Magnesium Total Bilirubin AST ALT Alkaline Phosphatase Total Protein Albumin Triglycerides Cholesterol LDL Cholesterol, Calc HDL Cholesterol Vitamin B12 Folate TSH Free T4 Urine Color Urine Appearance Urine pH Ur Specific [place] Urine Protein Urine Glucose (UA) Urine Ketones Urine Blood Urine Nitrite Ur Leukocyte Esterase Urine Opiates Screen Ur Buprenorphine Scrn Ur Oxycodone Screen Urine Methadone Screen Urine Fentanyl Screen Ur Barbiturates Screen Ur Phencyclidine Scrn Ur Amphetamines Screen U Benzodiazepines Scrn Urine Cocaine Screen U Marijuana (THC) Screen Ethyl Alcohol Airway Mallampati Class: III TM Dist: >3cm Neck ROM: Full Heart: RRR Lungs: CTA Assessment and Plan Assessment Anesthesia Assessment: Anesthesia Plan Discussed and Chart Reviewed Final Anesthetic Review Family History of Problems with Anesthesia: No History of Problems with Anesthesia: No ASA Class: II Final Preanesthetic Review: Meds/Allgs Chart Reviewed, Consent Obtained/Reviewed and Anes Risks/Benef Reviewed Patient Risk: Low Procedure Risk: Intermediate Anesthetic Plan Anesthetic Plan: GA Disposition: Standard PACU
--- NOTE | 2024-05-03 13:01 | MHC.SHP ---
Pre-Procedural Eval Section A - 24 Hr Update-Section A only Date of Service: 05/03/24 The patient is an INPATIENT: Yes Changes since office visit: No Cold of Flu in the past 2 weeks, No New Medical Problems, No Changes in Medication and No Patient answered all questions The patient has been examined within 24 hours of the surgical procedure. The History & Physical has been completed within 30 days and I have reviewed it.: Yes Section B - Complete if H&P > 30 days Chief Complaint: Schizoaffective Disorder Allergies: Allergies Allergy/AdvReac Type Severity Reaction Status Date / Time No Known Allergies [NKA] Allergy Unknown NONE Verified 04/11/24 15:35 Plan I have reviewed the history and physical and performed a pertinent physical examination on my patient. No changes have occurred unless specified. Time Spent With Patient Time: Total time managing care of this patient today ____ minutes.
--- NOTE | 2024-05-03 13:02 | HO.ECTPROC ---
ECT Procedure Note Diagnosis/Treatment Date of Service: 05/03/24 Diagnosis: Catatonia Previous ECT Date: 04/24/24 Current Treatment Number: 6 Treatment: Series Interval Clinical Notes: Pt father gave informed consent questions answered Time: Total time managing care of this patient today ____ minutes. ECT Settings Device: THYMATRON DGx Electrode Placement: Bitemporal Program/Pulse Width: 0.50 Energy Percent: 100 Seizure Duration By EEG (in seconds): 43 Medications Administration General Anesthetic: Etomidate (18) Muscle Relaxant: Succinylcholine (100) Ancillary Medications Miscillaneous Medications: Flumazenil (0.5) and Other (lorazepam 2 mg iv) Airway Management Airway Management: Bag Mask Ventilation Treatment Recommendations No Changes Recommended: No change Pt Tolerated Procedure w/o Issue: Yes
[2024-05-03] MEDS: LORazepam 2 MG/ML VIAL IVPUSH (13:30)
[2024-05-03] MEDS: Milk of Magnesia 30 ML ORAL.SUSP PO (18:00)
[2024-05-03] MEDS: cloZAPine 100 MG TABLET 200 MG PO (20:09)
[2024-05-03] MEDS: Tamsulosin HCL 0.4 MG CAPSULE PO (20:09)
[2024-05-03] MEDS: Glycopyrrolate 1 MG TABLET 0.5 MG PO (20:09)
[2024-05-03] MEDS: traZODone HCL 50 MG TABLET PO (20:09)
--- NOTE | 2024-05-03 22:16 | P.PNPSI_ITS ---
Subjective Subjective Date of Service: 05/03/24 Reason For Visit: Schizoaffective Disorder Subjective Notes: Conditional Voluntary Interim History: father able to give informed consent pt with significant catatonia sleep study has been ordered ect completed BT Mental Status Exam Mental Status Exam Patient Appearance: Unkempt Patient Orientation: Person and Place Level of Consciousness: Drowsy Patient Behavior: Dependent, Passive and Poor Eye Contact Mood Description: Flat Affect Description: Blunted Patient Cognition Impaired: No Ability to Follow Directions: Fair Speech Pattern: Impoverished Thought Process: Slowed Thinking Thought Content: positive for Thought Blocking Abnormal Motor Activity Signs and Symptoms: Psychomotor Retardation Judgement: Fair Diagnostics Vital Signs (24Hr): Vital Signs - 24 hr 05/03/24 08:00 05/03/24 12:48 05/03/24 12:57 Temperature 97.1 F 97 F 96.8 F Pulse Rate 78 79 78 Respiratory Rate 18 16 18 Blood Pressure 136/78 99/71 126/73 Pulse Oximetry 98 96 96 Oxygen Delivery Method Room Air Room Air Room Air Oxygen Flow Rate 05/03/24 12:58 05/03/24 13:20 05/03/24 13:25 Temperature 96.8 F 98.6 F Pulse Rate 78 95 98 Respiratory Rate 18 18 18 Blood Pressure 126/73 165/80 H 155/92 H Pulse Oximetry 96 100 100 Oxygen Delivery Method Nasal Cannula Nasal Cannula Oxygen Flow Rate 2 2 05/03/24 13:30 05/03/24 13:35 05/03/24 13:50 Temperature 98.6 F Pulse Rate 97 65 96 Respiratory Rate 18 18 18 Blood Pressure 155/92 H 155/89 H 143/90 H Pulse Oximetry 100 66 L 97 Oxygen Delivery Method Nasal Cannula Nasal Cannula Room Air Oxygen Flow Rate 2 2 05/03/24 14:34 05/03/24 19:10 Temperature 98.1 F 98.2 F Pulse Rate 89 100 Respiratory Rate 18 Blood Pressure 150/85 H 128/71 Pulse Oximetry 99 97 Oxygen Delivery Method Room Air Oxygen Flow Rate BMI result Body Mass Index 30.6 Labs 04/24/24 11:58 04/11/24 18:32 Medications Medications Current Medications Acetaminophen (Acetaminophen 325 Mg Tablet) 650 mg PO Q6H PRN PRN Reason: Headache/Pain Mild Scale (1-3) Al Hydroxide/Mg Hydroxide (Magnesium Hydrox/Alum Hydrox 30 Ml Oral.Susp) 30 ml PO Q6H PRN PRN Reason: Heartburn/Nausea Clozapine (Clozapine 100 Mg Tablet) 200 mg PO BEDTIME [facility]RISTIN Last Admin: 05/03/24 20:09 Dose: 200 mg Glycopyrrolate (Glycopyrrolate 1 Mg Tablet) 0.5 mg PO BID [facility] Last Admin: 05/03/24 20:09 Dose: 0.5 mg Hydroxyzine HCl (Hydroxyzine Hcl 25 Mg Tablet) 25 mg PO Q6H PRN PRN Reason: Anxiety Last Admin: 04/26/24 20:11 Dose: 25 mg Lorazepam (Lorazepam 1 Mg Tablet) 2 mg PO Q6H [facility]RISTIN Last Admin: 05/03/24 16:56 Dose: 2 mg Magnesium Hydroxide (Milk Of Magnesia 30 Ml Oral.Susp) 30 ml PO DAILY PRN PRN Reason: Constipation Last Admin: 05/03/24 18:00 Dose: 30 ml Naloxone HCl (Naloxone Hcl 0.4 Mg/Ml Vial) 0.04 mg IVPUSH Q5M PRN PRN Reason: Excessive sedation or RR < 8 Ondansetron HCl (Ondansetron Odt 4 Mg Tab.Rapdis) 4 mg TRANSLINGU Q8H PRN PRN Reason: Nausea and Vomiting Tamsulosin HCl (Tamsulosin Hcl 0.4 Mg Capsule) 0.4 mg PO BEDTIME [facility] Last Admin: 05/03/24 20:09 Dose: 0.4 mg Trazodone HCl (Trazodone Hcl 50 Mg Tablet) 50 mg PO BEDTIME MRX1 PRN PRN Reason: Insomnia Last Admin: 05/03/24 20:09 Dose: 50 mg Allergies Allergies Allergy/AdvReac Type Severity Reaction Status Date / Time No Known Allergies [NKA] Allergy Unknown NONE Verified 04/11/24 15:35 Assessment & Plan Assessment & Plan (1) Catatonia: Status: Acute Code(s): F06.1 - Catatonic disorder due to known physiological condition (2) Schizoaffective disorder: Status: Acute Code(s): F25.9 - Schizoaffective disorder, unspecified (3) Tardive dyskinesia: Status: Acute Code(s): G24.01 - Drug induced subacute dyskinesia Plan The patient is a 58-year-old male with a history of schizoaffective disorder bipolar type and catatonia who recently relapsed on catatonic symptoms after he missed an ECT. He was previously admitted into this facility a few weeks ago and he was fairly stable with Clozaril, Ativan and ECT. Plan 1. Continue with Clozaril as prescribed. 2. Continue with Ativan 2 mg p.o. t.i.d. for catatonia. 3. ECT had been held for this week. We are going to try to convince his father to have ECT next week. Finally, on May 02 the father agreed to restart ECT 05/03/23 [address] ect for catatonia ck sleep study obesity morning fatigue Reason for continued inpatient stay Substantial Risk for: inability to function and rapid decompensation Time Spent With Patient Time: Total time managing care of this patient today ____ minutes.
[2024-05-04] MEDS: LORazepam 1 MG TABLET 2 MG PO ×4 (05:52→18:05)
[2024-05-04 08:00] VITALS: BP 135/67; PULSE 79; RESP 15; TEMP 36.4; O2SAT 93
--- NOTE | 2024-05-04 08:34 | P.PNPSI_ITS ---
Subjective Subjective Date of Service: 05/04/24 Reason For Visit: Schizoaffective Disorder Subjective Notes: Other (HCP) Healthcare Proxy: Yes Guardianship: No Medical Problems Affecting Mental Status: No Interim History: 58 yo with recurrent catatonia improving more verbal- lying in bed- elevated head of bed- which is good idea as patient seems to have snoring/sleep apnea? might want to investigate though unclear if he would cooperate with cpap- should he qualify- Medication Compliance: Yes Side effects from medications: No Attending Groups: No Review of Systems Acute medical concerns: Yes Consider sleep apnea Medical Review of Systems: unchanged Mental Status Exam Mental Status Exam Patient Appearance: Fatigued and Unkempt Patient Orientation: Person and Place Level of Consciousness: Awake and Drowsy Patient Behavior: Passive, Fatigued and Poor Eye Contact Mood Description: Apathetic Affect Description: Flat Patient Cognition Impaired: No Ability to Follow Directions: Poor Speech Pattern: Monotone and Mumbled Hallucinations: None Thought Content: positive for Poverty of Content Abnormal Motor Activity Signs and Symptoms: Psychomotor Retardation Judgement: Poor Diagnostics Vital Signs (24Hr): Vital Signs - 24 hr 05/03/24 12:48 05/03/24 12:57 05/03/24 12:58 Temperature 97 F 96.8 F 96.8 F Pulse Rate 79 78 78 Respiratory Rate 16 18 18 Blood Pressure 99/71 126/73 126/73 Pulse Oximetry 96 96 96 Oxygen Delivery Method Room Air Room Air Oxygen Flow Rate 05/03/24 13:20 05/03/24 13:25 05/03/24 13:30 Temperature 98.6 F Pulse Rate 95 98 97 Respiratory Rate 18 18 18 Blood Pressure 165/80 H 155/92 H 155/92 H Pulse Oximetry 100 100 100 Oxygen Delivery Method Nasal Cannula Nasal Cannula Nasal Cannula Oxygen Flow Rate 2 2 2 05/03/24 13:35 05/03/24 13:50 05/03/24 14:34 Temperature 98.6 F 98.1 F Pulse Rate 65 96 89 Respiratory Rate 18 18 18 Blood Pressure 155/89 H 143/90 H 150/85 H Pulse Oximetry 66 L 97 99 Oxygen Delivery Method Nasal Cannula Room Air Oxygen Flow Rate 2 05/03/24 19:10 Temperature 98.2 F Pulse Rate 100 Respiratory Rate Blood Pressure 128/71 Pulse Oximetry 97 Oxygen Delivery Method Room Air Oxygen Flow Rate BMI result Body Mass Index 30.6 Labs 04/24/24 11:58 01/16/25 18:32 Medications Medications Current Medications Acetaminophen (Acetaminophen 325 Mg Tablet) 650 mg PO Q6H PRN PRN Reason: Headache/Pain Mild Scale (1-3) Al Hydroxide/Mg Hydroxide (Magnesium Hydrox/Alum Hydrox 30 Ml Oral.Susp) 30 ml PO Q6H PRN PRN Reason: Heartburn/Nausea Clozapine (Clozapine 100 Mg Tablet) 200 mg PO BEDTIME [facility] Last Admin: 05/03/24 20:09 Dose: 200 mg Glycopyrrolate (Glycopyrrolate 1 Mg Tablet) 0.5 mg PO BID [facility] Last Admin: 05/03/24 20:09 Dose: 0.5 mg Hydroxyzine HCl (Hydroxyzine Hcl 25 Mg Tablet) 25 mg PO Q6H PRN PRN Reason: Anxiety Last Admin: 04/26/24 20:11 Dose: 25 mg Lorazepam (Lorazepam 1 Mg Tablet) 2 mg PO Q6H [facility] Last Admin: 05/04/24 05:52 Dose: 2 mg Magnesium Hydroxide (Milk Of Magnesia 30 Ml Oral.Susp) 30 ml PO DAILY PRN PRN Reason: Constipation Last Admin: 05/03/24 18:00 Dose: 30 ml Naloxone HCl (Naloxone Hcl 0.4 Mg/Ml Vial) 0.04 mg IVPUSH Q5M PRN PRN Reason: Excessive sedation or RR < 8 Ondansetron HCl (Ondansetron Odt 4 Mg Tab.Rapdis) 4 mg TRANSLINGU Q8H PRN PRN Reason: Nausea and Vomiting Tamsulosin HCl (Tamsulosin Hcl 0.4 Mg Capsule) 0.4 mg PO BEDTIME [facility] Last Admin: 05/03/24 20:09 Dose: 0.4 mg Trazodone HCl (Trazodone Hcl 50 Mg Tablet) 50 mg PO BEDTIME MRX1 PRN PRN Reason: Insomnia Last Admin: 05/03/24 20:09 Dose: 50 mg Allergies Allergies Allergy/AdvReac Type Severity Reaction Status Date / Time No Known Allergies [NKA] Allergy Unknown NONE Verified 04/11/24 15:35 Assessment & Plan Assessment & Plan (1) Catatonia: Status: Acute Code(s): F06.1 - Catatonic disorder due to known physiological condition (2) Schizoaffective disorder: Status: Acute Code(s): F25.9 - Schizoaffective disorder, unspecified (3) Tardive dyskinesia: Status: Acute Code(s): G24.01 - Drug induced subacute dyskinesia Plan The patient is a 58-year-old male with a history of schizoaffective disorder bipolar type and catatonia who recently relapsed on catatonic symptoms after he missed an ECT. He was previously admitted into this facility a few weeks ago and he was fairly stable with Clozaril, Ativan and ECT. Plan 1. Continue with Clozaril as prescribed. 2. Continue with Ativan 2 mg p.o. t.i.d. for catatonia. 3. ECT had been held for this week. We are going to try to convince his father to have ECT next week. Finally, on May 02 the father agreed to restart ECT Patient educated on: medication risk/benefits and ECT Informed Consent: does not understand ( don't want to know how ECT works ) Reason for continued inpatient stay Substantial Risk for: inability to function and med/psych decompensation Time Spent With Patient Time: Total time managing care of this patient today ____ minutes.
[2024-05-04] MEDS: Glycopyrrolate 1 MG TABLET 0.5 MG PO ×2 (12:29→20:07)
[2024-05-04 19:59] VITALS: BP 125/70; PULSE 74; RESP 18; TEMP 36.4; O2SAT 94
[2024-05-04] MEDS: Tamsulosin HCL 0.4 MG CAPSULE PO (20:07)
[2024-05-04] MEDS: cloZAPine 100 MG TABLET 200 MG PO (20:08)
[2024-05-05] MEDS: LORazepam 1 MG TABLET 2 MG PO ×3 (06:02→21:28)
[2024-05-05 08:02] VITALS: BP 116/57; PULSE 68; RESP 18; TEMP 36.4; O2SAT 98
[2024-05-05 08:17] LABS: Neut%MD 58.7 %; Neutrophils Absolute Auto 3.3 x10*3/uL (2.0-8.3); WBCANC 5.6 X10*3/uL
--- NOTE | 2024-05-05 11:30 | HO.PSYCHPN ---
Subjective Subjective Date of Service: 05/05/24 Reason For Visit: Schizoaffective Disorder Subjective Notes: Conditional Voluntary Healthcare Proxy: Yes Guardianship: No Medical Problems Affecting Mental Status: Yes (? of sleep apnea) Interim History: Pt out eating lunch, some verbal but not wanting to talk much- denies concerns/questions about his treatment- Medication Compliance: Yes Side effects from medications: Yes (some sedation ) Attending Groups: No Review of Systems Acute medical concerns: Yes possible sleep apnea Medical Review of Systems: unchanged Mental Status Exam Mental Status Exam Patient Appearance: Unkempt Patient Orientation: Person and Place Level of Consciousness: Drowsy Patient Behavior: Dependent, Passive and Poor Eye Contact Mood Description: Flat Affect Description: Blunted Patient Cognition Impaired: No Ability to Follow Directions: Fair Speech Pattern: Impoverished Thought Process: Slowed Thinking Thought Content: positive for Thought Blocking Abnormal Motor Activity Signs and Symptoms: Psychomotor Retardation Judgement: Fair Diagnostics Vital Signs (24Hr): Vital Signs - 24 hr 05/04/24 19:59 05/05/24 08:02 Temperature 97.5 F 97.5 F Pulse Rate 74 68 Respiratory Rate 18 18 Blood Pressure 125/70 116/57 L Pulse Oximetry 94 98 Oxygen Delivery Method Room Air Room Air BMI result Body Mass Index 30.6 Labs 04/24/24 11:58 04/11/24 18:32 Labs: Laboratory Results - last 48 hr 05/05/24 08:10 Absolute Neuts (auto) 3.3 Medications Medications Current Medications Acetaminophen (Acetaminophen 325 Mg Tablet) 650 mg PO Q6H PRN PRN Reason: Headache/Pain Mild Scale (1-3) Al Hydroxide/Mg Hydroxide (Magnesium Hydrox/Alum Hydrox 30 Ml Oral.Susp) 30 ml PO Q6H PRN PRN Reason: Heartburn/Nausea Clozapine (Clozapine 100 Mg Tablet) 200 mg PO BEDTIME [facility] Last Admin: 05/04/24 20:08 Dose: 200 mg Glycopyrrolate (Glycopyrrolate 1 Mg Tablet) 0.5 mg PO BID [facility] Last Admin: 05/04/24 20:07 Dose: 0.5 mg Hydroxyzine HCl (Hydroxyzine Hcl 25 Mg Tablet) 25 mg PO Q6H PRN PRN Reason: Anxiety Last Admin: 04/26/24 20:11 Dose: 25 mg Lorazepam (Lorazepam 1 Mg Tablet) 2 mg PO Q6H [facility] Last Admin: 05/05/24 06:02 Dose: 2 mg Magnesium Hydroxide (Milk Of Magnesia 30 Ml Oral.Susp) 30 ml PO DAILY PRN PRN Reason: Constipation Last Admin: 05/03/24 18:00 Dose: 30 ml Naloxone HCl (Naloxone Hcl 0.4 Mg/Ml Vial) 0.04 mg IVPUSH Q5M PRN PRN Reason: Excessive sedation or RR < 8 Ondansetron HCl (Ondansetron Odt 4 Mg Tab.Rapdis) 4 mg TRANSLINGU Q8H PRN PRN Reason: Nausea and Vomiting Tamsulosin HCl (Tamsulosin Hcl 0.4 Mg Capsule) 0.4 mg PO BEDTIME [facility] Last Admin: 05/04/24 20:07 Dose: 0.4 mg Trazodone HCl (Trazodone Hcl 50 Mg Tablet) 50 mg PO BEDTIME MRX1 PRN PRN Reason: Insomnia Last Admin: 05/03/24 20:09 Dose: 50 mg Allergies Allergies Allergy/AdvReac Type Severity Reaction Status Date / Time No Known Allergies [NKA] Allergy Unknown NONE Verified 04/11/24 15:35 Assessment & Plan Assessment & Plan (1) Catatonia: Status: Acute Code(s): F06.1 - Catatonic disorder due to known physiological condition (2) Schizoaffective disorder: Status: Acute Code(s): F25.9 - Schizoaffective disorder, unspecified (3) Tardive dyskinesia: Status: Acute Code(s): G24.01 - Drug induced subacute dyskinesia Plan The patient is a 58-year-old male with a history of schizoaffective disorder bipolar type and catatonia who recently relapsed on catatonic symptoms after he missed an ECT. He was previously admitted into this facility a few weeks ago and he was fairly stable with Clozaril, Ativan and ECT. Plan 1. Continue with Clozaril as prescribed. 2. Continue with Ativan 2 mg p.o. t.i.d. for catatonia. 3. ECT had been held for this week. We are going to try to convince his father to have ECT next week. Finally, on May 02 the father agreed to restart ECT05/05/24- dec lorazepam from qid to tid- consider cpap Patient educated on: medication risk/benefits Informed Consent: further education needed Reason for continued inpatient stay Substantial Risk for: inability to function and rapid decompensation Time Spent With Patient Time: Total time managing care of this patient today ____ minutes.
[2024-05-05] MEDS: Glycopyrrolate 1 MG TABLET 0.5 MG PO ×2 (11:47→21:28)
[2024-05-05 20:00] VITALS: BP 118/74; PULSE 85; RESP 18; TEMP 36.3; O2SAT 95
[2024-05-05] MEDS: cloZAPine 100 MG TABLET 200 MG PO (21:27)
[2024-05-05] MEDS: traZODone HCL 50 MG TABLET PO (21:28)
[2024-05-05] MEDS: Tamsulosin HCL 0.4 MG CAPSULE PO (21:28)
[2024-05-06] VITALS (9 sets, daily range): BP systolic 110–173; BP diastolic 56–97; PULSE 78–99; RESP 16–20; TEMP 36.1–37.3; O2SAT 93–100
--- NOTE | 2024-05-06 07:05 | P.CONAN_ITS ---
[facility] Active Problems Active Problems: All Active Problems Catatonia (Acute) Pre-op evaluation (Acute) Tardive dyskinesia (Acute) Schizoaffective disorder (Acute) Nocturnal hypoxia (Acute) Schizoaffective disorder, depressive type (Acute) Benign prostate hyperplasia (Acute) Essential hypertension (Acute) Right hip pain (Acute) Past Medical History Medical History Tardive dyskinesia Mild sleep apnea Nocturnal hypoxia Routine medical exam Joint inflammation of right hand and wrist Status post fall Adult general medical exam Screening for colon cancer Screening for prostate cancer Cough BPH (benign prostatic hyperplasia) Family History Family History Mother Cancer Father Kidney agenesis Family history of problems with anesthesia: No Surgical History Surgical History History of colonoscopy (~06/15/21) History of tooth extraction History of root canal procedure History of Problems with Anesthesia: No Social History Social History Household Members: None Housing: Unknown / Unable to assess Are you a primary hospice home care coordinator to a significant other at home: No Do you presently have visiting nurse or other home services: Yes Unable to assess alcohol history related to: Unable to respond Alcohol intake: former Patient Tobacco Use Status: Never used Tobacco e-Cigarette/Vaping Use: Never Used Second Hand Smoke Exposure: No Use of substances other than those prescribed or required for medical reasons: Unknown Currently Displaying Signs/Symptoms of Drug Intoxication Withdrawal: No Advance Directives: No Advance Directives Information Provided: No Do you have thoughts of harming others: None Do you have a plan to hurt others: No Plan Recently lost weight without trying: No How much weight loss: Not applicable Eating poorly because of decreased appetite: No Nutrition screen score: 0 Nutrition Risks: No Nutritional Risk service: No Current occupational status: employed Sexual orientation: Straight/Heterosexual Cognitive needs: No Hearing needs: No Vision needs: No Meds Allergies Allergy/AdvReac Type Severity Reaction Status Date / Time No Known Allergies [NKA] Allergy Unknown NONE Verified 04/11/24 15:35 Active Medications: Current Medications Acetaminophen (Acetaminophen 325 Mg Tablet) 650 mg PO Q6H PRN PRN Reason: Headache/Pain Mild Scale (1-3) Al Hydroxide/Mg Hydroxide (Magnesium Hydrox/Alum Hydrox 30 Ml Oral.Susp) 30 ml PO Q6H PRN PRN Reason: Heartburn/Nausea Clozapine (Clozapine 100 Mg Tablet) 200 mg PO BEDTIME [facility] Last Admin: 05/05/24 21:27 Dose: 200 mg Glycopyrrolate (Glycopyrrolate 1 Mg Tablet) 0.5 mg PO BID [facility] Last Admin: 05/05/24 21:28 Dose: 0.5 mg Hydroxyzine HCl (Hydroxyzine Hcl 25 Mg Tablet) 25 mg PO Q6H PRN PRN Reason: Anxiety Last Admin: 04/26/24 20:11 Dose: 25 mg Lorazepam (Lorazepam 1 Mg Tablet) 2 mg PO TID [facility] Last Admin: 05/05/24 21:28 Dose: 2 mg Magnesium Hydroxide (Milk Of Magnesia 30 Ml Oral.Susp) 30 ml PO DAILY PRN PRN Reason: Constipation Last Admin: 05/03/24 18:00 Dose: 30 ml Naloxone HCl (Naloxone Hcl 0.4 Mg/Ml Vial) 0.04 mg IVPUSH Q5M PRN PRN Reason: Excessive sedation or RR < 8 Ondansetron HCl (Ondansetron Odt 4 Mg Tab.Rapdis) 4 mg TRANSLINGU Q8H PRN PRN Reason: Nausea and Vomiting Tamsulosin HCl (Tamsulosin Hcl 0.4 Mg Capsule) 0.4 mg PO BEDTIME [facility] Last Admin: 05/05/24 21:28 Dose: 0.4 mg Trazodone HCl (Trazodone Hcl 50 Mg Tablet) 50 mg PO BEDTIME MRX1 PRN PRN Reason: Insomnia Last Admin: 05/05/24 21:28 Dose: 50 mg Home Medications ?Medication ?Instructions ?Recorded ?Confirmed ?Last Taken ?Type benztropine 0.5 mg tablet 0.5 mg PO BID 04/11/24 04/12/24 Unknown History Exam Height,Weight and Vital Signs: Height 5 ft 9 in Weight 94.075 kg Last Vital Signs Temp 97 F 05/06/24 06:28 Pulse 78 05/06/24 06:28 Resp 18 05/06/24 06:28 BP 140/80 H 05/06/24 06:28 Pulse Ox 98 05/06/24 06:28 O2 Del Method Room Air 05/06/24 06:28 O2 Flow Rate 2 05/03/24 13:35 Pertinent Lab Results Pertinent Lab Results: Laboratory Tests 04/11/24 04/12/24 04/14/24 18:32 08:04 07:32 WBC 8.5 17.5 H RBC 4.50 L 4.59 L Hgb 12.8 L 13.2 L Hct 39.3 L 40.3 L MCV 87.3 87.8 MCH 28.4 28.8 MCHC 32.6 32.8 RDW 13.4 13.7 Plt Count 224 D 197 MPV 10.4 11.1 Immature Gran % (Auto) 0.9 H 0.6 H Neut % (Auto) 70.9 82.2 H Lymph % (Auto) 21.0 9.2 L [place] % (Auto) 7.1 7.8 Eos % (Auto) 0.0 0.0 Baso % (Auto) 0.1 0.2 Lymph # (Auto) 1.8 1.6 [place] # (Auto) 0.6 1.4 H Eos # (Auto) 0.0 0.0 Baso # (Auto) 0.0 0.0 Abs Immat Gran (auto) 0.08 H 0.11 H Absolute Neuts (auto) 6.1 14.4 H Absolute Nucleated RBC 0.000 0.000 Nucleated RBC % (auto) 0.0 0.0 Smear Tech's Comments Sodium 143 Potassium 4.2 Chloride 110 H Carbon Dioxide 26 Anion Gap 11 L BUN 21 H Creatinine 1.32 Estim Creat Clear Calc 59.5 Estimated GFR 55 Random Glucose 81 Estimat Average Glucose 111 Hemoglobin A1c % 5.5 Calcium 9.1 Magnesium 2.1 Total Bilirubin 0.5 AST 19 ALT 12 Alkaline Phosphatase 56 Total Protein 7.4 Albumin 3.9 Triglycerides 88 Cholesterol 149 LDL Cholesterol, Calc 101 H HDL Cholesterol 31 L Vitamin B12 437 Folate 17.1 TSH 0.36 Free T4 1.35 Urine Color Urine Appearance Urine pH Ur Specific [place] Urine Protein Urine Glucose (UA) Urine Ketones Urine Blood Urine Nitrite Ur Leukocyte Esterase Urine Opiates Screen Ur Buprenorphine Scrn Ur Oxycodone Screen Urine Methadone Screen Urine Fentanyl Screen Ur Barbiturates Screen Ur Phencyclidine Scrn Ur Amphetamines Screen U Benzodiazepines Scrn Urine Cocaine Screen U Marijuana (THC) Screen Ethyl Alcohol < 10 04/14/24 04/21/24 04/22/24 10:02 08:20 12:07 WBC RBC Hgb Hct MCV MCH MCHC RDW Plt Count MPV Immature Gran % (Auto) Neut % (Auto) Lymph % (Auto) [place] % (Auto) Eos % (Auto) Baso % (Auto) Lymph # (Auto) [place] # (Auto) Eos # (Auto) Baso # (Auto) Abs Immat Gran (auto) Absolute Neuts (auto) 4.4 4.3 Absolute Nucleated RBC Nucleated RBC % (auto) Smear Tech's Comments Sodium Potassium Chloride Carbon Dioxide Anion Gap BUN Creatinine Estim Creat Clear Calc Estimated GFR Random Glucose Estimat Average Glucose Hemoglobin A1c % Calcium Magnesium Total Bilirubin AST ALT Alkaline Phosphatase Total Protein Albumin Triglycerides Cholesterol LDL Cholesterol, Calc HDL Cholesterol Vitamin B12 Folate TSH Free T4 Urine Color Yellow Urine Appearance Clear Urine pH 5.5 Ur Specific [place] 1.020 Urine Protein Negative Urine Glucose (UA) Negative Urine Ketones Negative Urine Blood Negative Urine Nitrite Negative Ur Leukocyte Esterase Negative Urine Opiates Screen Not Detected Ur Buprenorphine Scrn Not Detected Ur Oxycodone Screen Not Detected Urine Methadone Screen Not Detected Urine Fentanyl Screen Not Detected Ur Barbiturates Screen Not Detected Ur Phencyclidine Scrn Not Detected Ur Amphetamines Screen Not Detected U Benzodiazepines Scrn Not Detected Urine Cocaine Screen Not Detected U Marijuana (THC) Screen Not Detected Ethyl Alcohol 04/24/24 04/28/24 05/05/24 11:58 12:04 08:10 WBC 5.6 RBC 4.24 L Hgb 12.0 L Hct 36.8 L MCV 86.8 MCH 28.3 MCHC 32.6 RDW 13.3 Plt Count 125 L D MPV 11.7 Immature Gran % (Auto) 0.5 H Neut % (Auto) 69.6 Lymph % (Auto) 21.8 [place] % (Auto) 7.7 Eos % (Auto) 0.2 Baso % (Auto) 0.2 Lymph # (Auto) 1.2 [place] # (Auto) 0.4 Eos # (Auto) 0.0 Baso # (Auto) 0.0 Abs Immat Gran (auto) 0.03 Absolute Neuts (auto) 3.9 5.4 3.3 Absolute Nucleated RBC 0.000 Nucleated RBC % (auto) 0.0 Smear Tech's Comments VERIFIED Sodium Potassium Chloride Carbon Dioxide Anion Gap BUN Creatinine Estim Creat Clear Calc Estimated GFR Random Glucose Estimat Average Glucose Hemoglobin A1c % Calcium Magnesium Total Bilirubin AST ALT Alkaline Phosphatase Total Protein Albumin Triglycerides Cholesterol LDL Cholesterol, Calc HDL Cholesterol Vitamin B12 Folate TSH Free T4 Urine Color Urine Appearance Urine pH Ur Specific [place] Urine Protein Urine Glucose (UA) Urine Ketones Urine Blood Urine Nitrite Ur Leukocyte Esterase Urine Opiates Screen Ur Buprenorphine Scrn Ur Oxycodone Screen Urine Methadone Screen Urine Fentanyl Screen Ur Barbiturates Screen Ur Phencyclidine Scrn Ur Amphetamines Screen U Benzodiazepines Scrn Urine Cocaine Screen U Marijuana (THC) Screen Ethyl Alcohol Airway Mallampati Class: II TM Dist: >3cm Neck ROM: Full Heart: rrr Lungs: cta Assessment and Plan Assessment Anesthesia Assessment: Anesthesia Plan Discussed and Chart Reviewed Final Anesthetic Review Family History of Problems with Anesthesia: No History of Problems with Anesthesia: No NPO: Yes ASA Class: III Final Preanesthetic Review: No Changes in Pt Med Stat, Meds/Allgs Chart Reviewed and Consent Obtained/Reviewed Patient Risk: Intermediate Procedure Risk: Intermediate Anesthetic Plan Anesthetic Plan: GA Disposition: Standard PACU
[2024-05-06] MEDS: Lactated Ringers 1,000 ML 50 ML IVCONT (07:15)
--- NOTE | 2024-05-06 08:00 | MHC.SHP ---
Pre-Procedural Eval Section A - 24 Hr Update-Section A only Date of Service: 05/06/24 The patient is an INPATIENT: Yes Changes since office visit: No Cold of Flu in the past 2 weeks, No New Medical Problems, No Changes in Medication and No Patient answered all questions The patient has been examined within 24 hours of the surgical procedure. The History & Physical has been completed within 30 days and I have reviewed it.: Yes Section B - Complete if H&P > 30 days Chief Complaint: Schizoaffective Disorder Relevant Family History (Specify if Yes): No Allergies: Allergies Allergy/AdvReac Type Severity Reaction Status Date / Time No Known Allergies [NKA] Allergy Unknown NONE Verified 04/11/24 15:35 Plan Diagnosis/Plan: Unchanged I have reviewed the history and physical and performed a pertinent physical examination on my patient. No changes have occurred unless specified. Time Spent With Patient Time: Total time managing care of this patient today ____ minutes.
--- NOTE | 2024-05-06 08:01 | HO.ECTPROC ---
ECT Procedure Note Diagnosis/Treatment Date of Service: 05/06/24 Diagnosis: Catatonia Previous ECT Date: 05/03/24 Current Treatment Number: 7 Treatment: Series Interval Clinical Notes: remains with catatonia; minimal interaction but knows name, , procedure Time: Total time managing care of this patient today ____ minutes. ECT Settings Device: THYMATRON DGx Electrode Placement: Bitemporal Program/Pulse Width: 0.50 Energy Percent: 100 Seizure Duration By EEG (in seconds): 55 By Motor Observation (in seconds): 12 Medications Administration General Anesthetic: Etomidate (18) Muscle Relaxant: Succinylcholine (100) Ancillary Medications Cardiovascular Medications: Glycopyrrolate (0.2) and Other (flumazenil 0.5) Miscillaneous Medications: Other (Ativan 2mg IV post) Airway Management Airway Management: Bag Mask Ventilation Treatment Recommendations No Changes Recommended: No change Electrode Placement: Bitemporal Program/Pulse Width: 0.50 Energy Percent: 100 Notes: continue current tx plan with current parameters Pt Tolerated Procedure w/o Issue: Yes
[2024-05-06] MEDS: LORazepam 2 MG/ML VIAL IVPUSH (08:49)
[2024-05-06] MEDS: LORazepam 1 MG TABLET 2 MG PO ×3 (09:53→20:40)
[2024-05-06] MEDS: Glycopyrrolate 1 MG TABLET 0.5 MG PO ×2 (09:54→20:40)
[2024-05-06] MEDS: cloZAPine 100 MG TABLET 200 MG PO (20:40)
[2024-05-06] MEDS: Tamsulosin HCL 0.4 MG CAPSULE PO (20:40)
--- NOTE | 2024-05-06 22:20 | HO.PSYCHPN ---
Subjective Subjective Date of Service: 05/06/24 Reason For Visit: Schizoaffective Disorder Subjective Notes: Conditional Voluntary Healthcare Proxy: Yes Interim History: Pts ect completed mood flat withdrawn remains with catatonia resp nighttime eval reviewed Medication Compliance: Yes Mental Status Exam Mental Status Exam Patient Appearance: Unkempt Patient Orientation: Person and Place Level of Consciousness: Drowsy Patient Behavior: Guarded, Passive and Poor Eye Contact Mood Description: Blunted and Flat Affect Description: Blunted Patient Cognition Impaired: No Ability to Follow Directions: Fair Speech Pattern: Impoverished Thought Process: Slowed Thinking Thought Content: positive for Thought Blocking Abnormal Motor Activity Signs and Symptoms: Psychomotor Retardation Judgement: Fair Diagnostics Vital Signs (24Hr): Vital Signs - 24 hr 05/06/24 06:00 05/06/24 06:28 05/06/24 08:26 Temperature 97.4 F 97 F 99.1 F Pulse Rate 87 78 96 Respiratory Rate 18 18 20 Blood Pressure 116/77 140/80 H 140/80 H Pulse Oximetry 99 98 98 Oxygen Delivery Method Room Air Room Air Nasal Cannula Oxygen Flow Rate 2 05/06/24 08:26 05/06/24 08:31 05/06/24 08:36 Temperature 99 F Pulse Rate 96 99 99 Respiratory Rate 20 16 16 Blood Pressure 150/89 H 173/89 H 162/94 H Pulse Oximetry 100 98 98 Oxygen Delivery Method Room Air Nasal Cannula Nasal Cannula Oxygen Flow Rate 2 2 05/06/24 08:41 05/06/24 08:46 05/06/24 08:54 Temperature 98.8 F Pulse Rate 99 99 97 Respiratory Rate 16 16 16 Blood Pressure 157/97 H 153/96 H 154/95 H Pulse Oximetry 98 95 95 Oxygen Delivery Method Nasal Cannula Room Air Room Air Oxygen Flow Rate 2 05/06/24 19:58 Temperature 97 F Pulse Rate 83 Respiratory Rate 16 Blood Pressure 110/56 L Pulse Oximetry 93 Oxygen Delivery Method Room Air Oxygen Flow Rate BMI result Body Mass Index 30.6 Labs 04/24/24 11:58 04/11/24 18:32 Labs: Laboratory Results - last 48 hr 05/05/24 08:10 Absolute Neuts (auto) 3.3 Medications Medications Current Medications Acetaminophen (Acetaminophen 325 Mg Tablet) 650 mg PO Q6H PRN PRN Reason: Headache/Pain Mild Scale (1-3) Al Hydroxide/Mg Hydroxide (Magnesium Hydrox/Alum Hydrox 30 Ml Oral.Susp) 30 ml PO Q6H PRN PRN Reason: Heartburn/Nausea Clozapine (Clozapine 100 Mg Tablet) 200 mg PO BEDTIME [facility] Last Admin: 05/06/24 20:40 Dose: 200 mg Glycopyrrolate (Glycopyrrolate 1 Mg Tablet) 0.5 mg PO BID [facility] Last Admin: 05/06/24 20:40 Dose: 0.5 mg Hydroxyzine HCl (Hydroxyzine Hcl 25 Mg Tablet) 25 mg PO Q6H PRN PRN Reason: Anxiety Last Admin: 04/26/24 20:11 Dose: 25 mg Lorazepam (Lorazepam 1 Mg Tablet) 2 mg PO TID [facility] Last Admin: 05/06/24 20:40 Dose: 2 mg Magnesium Hydroxide (Milk Of Magnesia 30 Ml Oral.Susp) 30 ml PO DAILY PRN PRN Reason: Constipation Last Admin: 05/03/24 18:00 Dose: 30 ml Ondansetron HCl (Ondansetron Odt 4 Mg Tab.Rapdis) 4 mg TRANSLINGU Q8H PRN PRN Reason: Nausea and Vomiting Tamsulosin HCl (Tamsulosin Hcl 0.4 Mg Capsule) 0.4 mg PO BEDTIME [facility] Last Admin: 05/06/24 20:40 Dose: 0.4 mg Trazodone HCl (Trazodone Hcl 50 Mg Tablet) 50 mg PO BEDTIME MRX1 PRN PRN Reason: Insomnia Last Admin: 05/05/24 21:28 Dose: 50 mg Allergies Allergies Allergy/AdvReac Type Severity Reaction Status Date / Time No Known Allergies [NKA] Allergy Unknown NONE Verified 04/11/24 15:35 Assessment & Plan Assessment & Plan (1) Catatonia: Status: Acute Code(s): F06.1 - Catatonic disorder due to known physiological condition (2) Schizoaffective disorder: Status: Acute Code(s): F25.9 - Schizoaffective disorder, unspecified (3) Tardive dyskinesia: Status: Acute Code(s): G24.01 - Drug induced subacute dyskinesia Plan The patient is a 58-year-old male with a history of schizoaffective disorder bipolar type and catatonia who recently relapsed on catatonic symptoms after he missed an ECT. He was previously admitted into this facility a few weeks ago and he was fairly stable with Clozaril, Ativan and ECT. Plan 1. Continue with Clozaril as prescribed. 2. Continue with Ativan 2 mg p.o. t.i.d. for catatonia. 3. ECT had been held for this week. We are going to try to convince his father to have ECT next week. Finally, on May 02 the father agreed to restart ECT 05/03/23 Restart ect for catatonia ck sleep study obesity morning fatigue 05/06/23 Cont bt ect reviewed option of maint ect cont clozapine no evidence of hypoxia or apnea on respiratory eval father giving consent to ect pt agreeable Patient educated on: medication risk/benefits and ECT Informed Consent: does not understand Reason for continued inpatient stay Substantial Risk for: inability to function and rapid decompensation Time Spent With Patient Time: Total time managing care of this patient today ____ minutes.
[2024-05-07 08:00] VITALS: BP 131/82; PULSE 83; RESP 16; TEMP 36.2; O2SAT 98
[2024-05-07] MEDS: LORazepam 1 MG TABLET 2 MG PO ×3 (09:31→20:28)
[2024-05-07] MEDS: Glycopyrrolate 1 MG TABLET 0.5 MG PO ×2 (09:31→20:28)
--- NOTE | 2024-05-07 11:35 | P.PNPSI_ITS ---
Subjective Subjective Date of Service: 05/07/24 Reason For Visit: Schizoaffective Disorder Subjective Notes: Conditional Voluntary Interim History: The nursing staff reported the patient had with a brighter affect with after ECT. The occupational therapist reported that now he is more engageable in groups. On interview the patient denies new symptoms he looks less internally preoccupied. Mental Status Exam Mental Status Exam Patient Appearance: Appropriate Patient Orientation: Person and Situation Level of Consciousness: Awake and Appropriate Patient Behavior: Guarded and Passive Mood Description: Withdrawn Affect Description: Constricted Patient Cognition Impaired: Yes Ability to Follow Directions: Good Speech Pattern: Clear Hallucinations: None Delusions: Ideas of Reference Thought Process: Distracted and Slowed Thinking Thought Content: positive for [employer] and positive for Poverty of Content Judgement: Fair Diagnostics Vital Signs (24Hr): Vital Signs - 24 hr 05/06/24 19:58 Temperature 97 F Pulse Rate 83 Respiratory Rate 16 Blood Pressure 110/56 L Pulse Oximetry 93 Oxygen Delivery Method Room Air BMI result Body Mass Index 30.6 Labs 04/24/24 11:58 04/11/24 18:32 Medications Medications Current Medications Acetaminophen (Acetaminophen 325 Mg Tablet) 650 mg PO Q6H PRN PRN Reason: Headache/Pain Mild Scale (1-3) Al Hydroxide/Mg Hydroxide (Magnesium Hydrox/Alum Hydrox 30 Ml Oral.Susp) 30 ml PO Q6H PRN PRN Reason: Heartburn/Nausea Clozapine (Clozapine 100 Mg Tablet) 200 mg PO BEDTIME [facility] Last Admin: 05/06/24 20:40 Dose: 200 mg Glycopyrrolate (Glycopyrrolate 1 Mg Tablet) 0.5 mg PO BID [facility] Last Admin: 05/07/24 09:31 Dose: 0.5 mg Hydroxyzine HCl (Hydroxyzine Hcl 25 Mg Tablet) 25 mg PO Q6H PRN PRN Reason: Anxiety Last Admin: 04/26/24 20:11 Dose: 25 mg Lorazepam (Lorazepam 1 Mg Tablet) 2 mg PO TID [facility] Last Admin: 05/07/24 09:31 Dose: 2 mg Magnesium Hydroxide (Milk Of Magnesia 30 Ml Oral.Susp) 30 ml PO DAILY PRN PRN Reason: Constipation Last Admin: 05/03/24 18:00 Dose: 30 ml Ondansetron HCl (Ondansetron Odt 4 Mg Tab.Rapdis) 4 mg TRANSLINGU Q8H PRN PRN Reason: Nausea and Vomiting Tamsulosin HCl (Tamsulosin Hcl 0.4 Mg Capsule) 0.4 mg PO BEDTIME [facility] Last Admin: 05/06/24 20:40 Dose: 0.4 mg Trazodone HCl (Trazodone Hcl 50 Mg Tablet) 50 mg PO BEDTIME MRX1 PRN PRN Reason: Insomnia Last Admin: 05/05/24 21:28 Dose: 50 mg Allergies Allergies Allergy/AdvReac Type Severity Reaction Status Date / Time No Known Allergies [NKA] Allergy Unknown NONE Verified 04/11/24 15:35 Assessment & Plan Assessment & Plan (1) Catatonia: Status: Acute Code(s): F06.1 - Catatonic disorder due to known physiological condition (2) Schizoaffective disorder: Status: Acute Code(s): F25.9 - Schizoaffective disorder, unspecified (3) Tardive dyskinesia: Status: Acute Code(s): G24.01 - Drug induced subacute dyskinesia Plan The patient is a 58-year-old male with a history of schizoaffective disorder bipolar type and catatonia who recently relapsed on catatonic symptoms after he missed an ECT. He was previously admitted into this facility a few weeks ago and he was fairly stable with Clozaril, Ativan and ECT. Plan 1. Continue with Clozaril as prescribed. 2. Continue with Ativan 2 mg p.o. t.i.d. for catatonia. 3. ECT had been held for this week. We are going to try to convince his father to have ECT next week. Finally, on May 02 the father agreed to restart ECT 4. Slept study came back within normal limits. Reason for continued inpatient stay Substantial Risk for: inability to function, rapid decompensation and med/psych decompensation Time Spent With Patient Time: Total time managing care of this patient today __20__ minutes.
--- NOTE | 2024-05-07 14:08 | HO.POSTANES ---
Post Anesthesia Evaluation Post Anesthesia Evaluation Date of Service: 05/07/24 Anesthesia: General Mental Status: Awake Pain Control: Satisfactory Nausea/Vomiting: None Hydration: Adequate Anesthesia-Related Issues: No Anes. Related Issues
[2024-05-07 20:00] VITALS: BP 122/74; PULSE 88; TEMP 36.6; O2SAT 96
[2024-05-07] MEDS: cloZAPine 100 MG TABLET 200 MG PO (20:28)
[2024-05-07] MEDS: Tamsulosin HCL 0.4 MG CAPSULE PO (20:28)
[2024-05-08] VITALS (10 sets, daily range): BP systolic 126–168; BP diastolic 59–98; PULSE 75–91; RESP 16–18; TEMP 36.1–37.2; O2SAT 95–98
[2024-05-08] MEDS: LORazepam 1 MG TABLET 2 MG PO ×3 (09:05→20:05)
[2024-05-08] MEDS: Glycopyrrolate 1 MG TABLET 0.5 MG PO ×2 (09:06→20:06)
--- NOTE | 2024-05-08 13:48 | HO.ANESPROP2 ---
HPI - Anesthesia Eval Consult details Narrative: 58 yo male patient for ECT PMFSH Active Problems Active Problems: All Active Problems Catatonia (Acute) Pre-op evaluation (Acute) Tardive dyskinesia (Acute) Schizoaffective disorder (Acute) Nocturnal hypoxia (Acute) Schizoaffective disorder, depressive type (Acute) Benign prostate hyperplasia (Acute) Essential hypertension (Acute) Right hip pain (Acute) Past Medical History Medical History Tardive dyskinesia Mild sleep apnea Nocturnal hypoxia Routine medical exam Joint inflammation of right hand and wrist Status post fall Adult general medical exam Screening for colon cancer Screening for prostate cancer Cough BPH (benign prostatic hyperplasia) Family History Family History Mother Cancer Father Kidney agenesis Family history of problems with anesthesia: No Surgical History Surgical History History of colonoscopy (~06/15/21) History of tooth extraction History of root canal procedure History of Problems with Anesthesia: No Social History Social History Household Members: None Housing: Unknown / Unable to assess Are you a primary women's health care nurse practitioner to a significant other at home: No Do you presently have visiting nurse or other home services: Yes Unable to assess alcohol history related to: Unable to respond Alcohol intake: former Patient Tobacco Use Status: Never used Tobacco e-Cigarette/Vaping Use: Never Used Second Hand Smoke Exposure: No Use of substances other than those prescribed or required for medical reasons: Unknown Currently Displaying Signs/Symptoms of Drug Intoxication Withdrawal: No Advance Directives: No Advance Directives Information Provided: No Do you have thoughts of harming others: None Do you have a plan to hurt others: No Plan Recently lost weight without trying: No How much weight loss: Not applicable Eating poorly because of decreased appetite: No Nutrition screen score: 0 Nutrition Risks: No Nutritional Risk service: No Current occupational status: employed Sexual orientation: Straight/Heterosexual Cognitive needs: No Hearing needs: No Vision needs: No Meds Allergies Allergy/AdvReac Type Severity Reaction Status Date / Time No Known Allergies [NKA] Allergy Unknown NONE Verified 04/11/24 15:35 Active Medications: Current Medications Acetaminophen (Acetaminophen 325 Mg Tablet) 650 mg PO Q6H PRN PRN Reason: Headache/Pain Mild Scale (1-3) Al Hydroxide/Mg Hydroxide (Magnesium Hydrox/Alum Hydrox 30 Ml Oral.Susp) 30 ml PO Q6H PRN PRN Reason: Heartburn/Nausea Clozapine (Clozapine 100 Mg Tablet) 200 mg PO BEDTIME [facility] Last Admin: 05/07/24 20:28 Dose: 200 mg Glycopyrrolate (Glycopyrrolate 1 Mg Tablet) 0.5 mg PO BID [facility] Last Admin: 05/08/24 09:06 Dose: 0.5 mg Hydroxyzine HCl (Hydroxyzine Hcl 25 Mg Tablet) 25 mg PO Q6H PRN PRN Reason: Anxiety Last Admin: 04/26/24 20:11 Dose: 25 mg Lorazepam (Lorazepam 1 Mg Tablet) 2 mg PO TID [facility] Last Admin: 05/08/24 09:05 Dose: 2 mg Magnesium Hydroxide (Milk Of Magnesia 30 Ml Oral.Susp) 30 ml PO DAILY PRN PRN Reason: Constipation Last Admin: 05/03/24 18:00 Dose: 30 ml Ondansetron HCl (Ondansetron Odt 4 Mg Tab.Rapdis) 4 mg TRANSLINGU Q8H PRN PRN Reason: Nausea and Vomiting Tamsulosin HCl (Tamsulosin Hcl 0.4 Mg Capsule) 0.4 mg PO BEDTIME [facility] Last Admin: 05/07/24 20:28 Dose: 0.4 mg Trazodone HCl (Trazodone Hcl 50 Mg Tablet) 50 mg PO BEDTIME MRX1 PRN PRN Reason: Insomnia Last Admin: 05/05/24 21:28 Dose: 50 mg Home Medications ?Medication ?Instructions ?Recorded ?Confirmed ?Last Taken ?Type benztropine 0.5 mg tablet 0.5 mg PO BID 04/11/24 04/12/24 Unknown History Exam Height,Weight and Vital Signs: Height 5 ft 9 in Weight 94.075 kg Last Vital Signs Temp 97.5 F 05/08/24 08:00 Pulse 75 05/08/24 08:00 Resp 18 05/08/24 08:00 BP 129/72 05/08/24 08:00 Pulse Ox 98 05/08/24 08:00 O2 Del Method Room Air 05/08/24 08:00 O2 Flow Rate 2 05/06/24 08:41 Pertinent Lab Results Pertinent Lab Results: Laboratory Tests 04/11/24 04/12/24 04/14/24 18:32 08:04 07:32 WBC 8.5 17.5 H RBC 4.50 L 4.59 L Hgb 12.8 L 13.2 L Hct 39.3 L 40.3 L MCV 87.3 87.8 MCH 28.4 28.8 MCHC 32.6 32.8 RDW 13.4 13.7 Plt Count 224 D 197 MPV 10.4 11.1 Immature Gran % (Auto) 0.9 H 0.6 H Neut % (Auto) 70.9 82.2 H Lymph % (Auto) 21.0 9.2 L [place] % (Auto) 7.1 7.8 Eos % (Auto) 0.0 0.0 Baso % (Auto) 0.1 0.2 Lymph # (Auto) 1.8 1.6 [place] # (Auto) 0.6 1.4 H Eos # (Auto) 0.0 0.0 Baso # (Auto) 0.0 0.0 Abs Immat Gran (auto) 0.08 H 0.11 H Absolute Neuts (auto) 6.1 14.4 H Absolute Nucleated RBC 0.000 0.000 Nucleated RBC % (auto) 0.0 0.0 Smear Tech's Comments Sodium 143 Potassium 4.2 Chloride 110 H Carbon Dioxide 26 Anion Gap 11 L BUN 21 H Creatinine 1.32 Estim Creat Clear Calc 59.5 Estimated GFR 55 Random Glucose 81 Estimat Average Glucose 111 Hemoglobin A1c % 5.5 Calcium 9.1 Magnesium 2.1 Total Bilirubin 0.5 AST 19 ALT 12 Alkaline Phosphatase 56 Total Protein 7.4 Albumin 3.9 Triglycerides 88 Cholesterol 149 LDL Cholesterol, Calc 101 H HDL Cholesterol 31 L Vitamin B12 437 Folate 17.1 TSH 0.36 Free T4 1.35 Urine Color Urine Appearance Urine pH Ur Specific Michael Urine Protein Urine Glucose (UA) Urine Ketones Urine Blood Urine Nitrite Ur Leukocyte Esterase Urine Opiates Screen Ur Buprenorphine Scrn Ur Oxycodone Screen Urine Methadone Screen Urine Fentanyl Screen Ur Barbiturates Screen Ur Phencyclidine Scrn Ur Amphetamines Screen U Benzodiazepines Scrn Urine Cocaine Screen U Marijuana (THC) Screen Ethyl Alcohol < 10 04/14/24 04/21/24 04/22/24 10:02 08:20 12:07 WBC RBC Hgb Hct MCV MCH MCHC RDW Plt Count MPV Immature Gran % (Auto) Neut % (Auto) Lymph % (Auto) [place] % (Auto) Eos % (Auto) Baso % (Auto) Lymph # (Auto) [place] # (Auto) Eos # (Auto) Baso # (Auto) Abs Immat Gran (auto) Absolute Neuts (auto) 4.4 4.3 Absolute Nucleated RBC Nucleated RBC % (auto) Smear Tech's Comments Sodium Potassium Chloride Carbon Dioxide Anion Gap BUN Creatinine Estim Creat Clear Calc Estimated GFR Random Glucose Estimat Average Glucose Hemoglobin A1c % Calcium Magnesium Total Bilirubin AST ALT Alkaline Phosphatase Total Protein Albumin Triglycerides Cholesterol LDL Cholesterol, Calc HDL Cholesterol Vitamin B12 Folate TSH Free T4 Urine Color Yellow Urine Appearance Clear Urine pH 5.5 Ur Specific Michael 1.020 Urine Protein Negative Urine Glucose (UA) Negative Urine Ketones Negative Urine Blood Negative Urine Nitrite Negative Ur Leukocyte Esterase Negative Urine Opiates Screen Not Detected Ur Buprenorphine Scrn Not Detected Ur Oxycodone Screen Not Detected Urine Methadone Screen Not Detected Urine Fentanyl Screen Not Detected Ur Barbiturates Screen Not Detected Ur Phencyclidine Scrn Not Detected Ur Amphetamines Screen Not Detected U Benzodiazepines Scrn Not Detected Urine Cocaine Screen Not Detected U Marijuana (THC) Screen Not Detected Ethyl Alcohol 04/24/24 04/28/24 05/05/24 11:58 12:04 08:10 WBC 5.6 RBC 4.24 L Hgb 12.0 L Hct 36.8 L MCV 86.8 MCH 28.3 MCHC 32.6 RDW 13.3 Plt Count 125 L D MPV 11.7 Immature Gran % (Auto) 0.5 H Neut % (Auto) 69.6 Lymph % (Auto) 21.8 [place] % (Auto) 7.7 Eos % (Auto) 0.2 Baso % (Auto) 0.2 Lymph # (Auto) 1.2 [place] # (Auto) 0.4 Eos # (Auto) 0.0 Baso # (Auto) 0.0 Abs Immat Gran (auto) 0.03 Absolute Neuts (auto) 3.9 5.4 3.3 Absolute Nucleated RBC 0.000 Nucleated RBC % (auto) 0.0 Smear Tech's Comments VERIFIED Sodium Potassium Chloride Carbon Dioxide Anion Gap BUN Creatinine Estim Creat Clear Calc Estimated GFR Random Glucose Estimat Average Glucose Hemoglobin A1c % Calcium Magnesium Total Bilirubin AST ALT Alkaline Phosphatase Total Protein Albumin Triglycerides Cholesterol LDL Cholesterol, Calc HDL Cholesterol Vitamin B12 Folate TSH Free T4 Urine Color Urine Appearance Urine pH Ur Specific Michael Urine Protein Urine Glucose (UA) Urine Ketones Urine Blood Urine Nitrite Ur Leukocyte Esterase Urine Opiates Screen Ur Buprenorphine Scrn Ur Oxycodone Screen Urine Methadone Screen Urine Fentanyl Screen Ur Barbiturates Screen Ur Phencyclidine Scrn Ur Amphetamines Screen U Benzodiazepines Scrn Urine Cocaine Screen U Marijuana (THC) Screen Ethyl Alcohol Narrative Narrative: More awake today. Responding appropriately to questions Airway Mallampati Class: II TM Dist: >3cm Neck ROM: Full Loose/Missing/Broken Teeth: Yes (Missing some teeth- top front and some in back. Denies broken or loose teeth) Heart: RRR Lungs: CTAB Assessment and Plan Assessment Anesthesia Assessment: Anesthesia Plan Discussed and Chart Reviewed Final Anesthetic Review Family History of Problems with Anesthesia: No History of Problems with Anesthesia: No NPO: Yes ASA Class: III Final Preanesthetic Review: No Changes in Pt Med Stat, Meds/Allgs Chart Reviewed, Consent Obtained/Reviewed and Anes Risks/Benef Reviewed Patient Risk: Intermediate Procedure Risk: Intermediate Assessment/Block/Sedation in SS: Assess/Block/Sedation-SS Anesthetic Plan Anesthetic Plan: GA Disposition: Standard PACU
--- NOTE | 2024-05-08 14:23 | MHC.SHP ---
Pre-Procedural Eval Section A - 24 Hr Update-Section A only Date of Service: 05/08/24 The patient is an INPATIENT: Yes Changes since office visit: No Cold of Flu in the past 2 weeks, No New Medical Problems, No Changes in Medication and No Patient answered all questions The patient has been examined within 24 hours of the surgical procedure. The History & Physical has been completed within 30 days and I have reviewed it.: Yes Section B - Complete if H&P > 30 days Chief Complaint: Schizoaffective Disorder Allergies: Allergies Allergy/AdvReac Type Severity Reaction Status Date / Time No Known Allergies [NKA] Allergy Unknown NONE Verified 04/11/24 15:35 Plan I have reviewed the history and physical and performed a pertinent physical examination on my patient. No changes have occurred unless specified. Time Spent With Patient Time: Total time managing care of this patient today ____ minutes.
--- NOTE | 2024-05-08 14:44 | P.PNPSI_ITS ---
Subjective Subjective Date of Service: 05/08/24 Reason For Visit: Schizoaffective Disorder Subjective Notes: Conditional Voluntary Healthcare Proxy: Yes Interim History: The nursisng staff reported that the patient was more awake and alert, more verbal. Today on itnerviw, he reported feeling much better, he wants to have ECT. Mental Status Exam Mental Status Exam Patient Appearance: Well Grooomed and Appropriate Patient Orientation: Person and Situation Level of Consciousness: Awake and Appropriate Patient Behavior: Guarded and Passive Mood Description: Withdrawn Affect Description: Constricted Patient Cognition Impaired: Yes Ability to Follow Directions: Good Speech Pattern: Clear Hallucinations: None Delusions: Ideas of Reference Thought Process: Distracted and Slowed Thinking Thought Content: positive for [place] and positive for Poverty of Content Judgement: Fair Diagnostics Vital Signs (24Hr): Vital Signs - 24 hr 05/07/24 20:00 05/08/24 08:00 05/08/24 13:55 Temperature 97.8 F 97.5 F 98.1 F Pulse Rate 88 75 77 Respiratory Rate 18 18 Blood Pressure 122/74 129/72 126/72 Pulse Oximetry 96 98 98 Oxygen Delivery Method Room Air Room Air Room Air BMI result Body Mass Index 30.6 Labs 04/24/24 11:58 04/11/24 18:32 Medications Medications Current Medications Acetaminophen (Acetaminophen 325 Mg Tablet) 650 mg PO Q6H PRN PRN Reason: Headache/Pain Mild Scale (1-3) Al Hydroxide/Mg Hydroxide (Magnesium Hydrox/Alum Hydrox 30 Ml Oral.Susp) 30 ml PO Q6H PRN PRN Reason: Heartburn/Nausea Clozapine (Clozapine 100 Mg Tablet) 200 mg PO BEDTIME [facility] Last Admin: 05/07/24 20:28 Dose: 200 mg Glycopyrrolate (Glycopyrrolate 1 Mg Tablet) 0.5 mg PO BID [facility] Last Admin: 05/08/24 09:06 Dose: 0.5 mg Hydroxyzine HCl (Hydroxyzine Hcl 25 Mg Tablet) 25 mg PO Q6H PRN PRN Reason: Anxiety Last Admin: 04/26/24 20:11 Dose: 25 mg Lactated Ringer's (Lr) 1,000 mls @ 50 mls/hr IVCONT .Q20H [facility] Lorazepam (Lorazepam 1 Mg Tablet) 2 mg PO TID [facility] Last Admin: 05/08/24 09:05 Dose: 2 mg Magnesium Hydroxide (Milk Of Magnesia 30 Ml Oral.Susp) 30 ml PO DAILY PRN PRN Reason: Constipation Last Admin: 05/03/24 18:00 Dose: 30 ml Ondansetron HCl (Ondansetron Odt 4 Mg Tab.Rapdis) 4 mg TRANSLINGU Q8H PRN PRN Reason: Nausea and Vomiting Tamsulosin HCl (Tamsulosin Hcl 0.4 Mg Capsule) 0.4 mg PO BEDTIME [facility] Last Admin: 05/07/24 20:28 Dose: 0.4 mg Trazodone HCl (Trazodone Hcl 50 Mg Tablet) 50 mg PO BEDTIME MRX1 PRN PRN Reason: Insomnia Last Admin: 05/05/24 21:28 Dose: 50 mg Allergies Allergies Allergy/AdvReac Type Severity Reaction Status Date / Time No Known Allergies [NKA] Allergy Unknown NONE Verified 04/11/24 15:35 Assessment & Plan Assessment & Plan (1) Catatonia: Status: Acute Code(s): F06.1 - Catatonic disorder due to known physiological condition (2) Schizoaffective disorder: Status: Acute Code(s): F25.9 - Schizoaffective disorder, unspecified (3) Tardive dyskinesia: Status: Acute Code(s): G24.01 - Drug induced subacute dyskinesia Plan The patient is a 58-year-old male with a history of schizoaffective disorder bipolar type and catatonia who recently relapsed on catatonic symptoms after he missed an ECT. He was previously admitted into this facility a few weeks ago and he was fairly stable with Clozaril, Ativan and ECT. Plan 1. Continue with Clozaril as prescribed. 2. Continue with Ativan 2 mg p.o. t.i.d. for catatonia. 3. ECT had been held for this week. We are going to try to convince his father to have ECT next week. Finally, on May 02 the father agreed to restart ECT 4. Slept study came back within normal limits. Reason for continued inpatient stay Substantial Risk for: inability to function, rapid decompensation and med/psych decompensation Time Spent With Patient Time: Total time managing care of this patient today __20__ minutes.
--- NOTE | 2024-05-08 15:01 | HO.ECTPROC ---
ECT Procedure Note Diagnosis/Treatment Date of Service: 05/08/24 Diagnosis: Schizoaffective Disorder Previous ECT Date: 05/06/24 Treatment: Series Interval Clinical Notes: The patient's catatonia is improving, now he is verbal and he wants to have ECT. No side effects with the previous ECT. ECT done as usual, no complications, woke up well. Time: Total time managing care of this patient today ____ minutes. ECT Settings Device: THYMATRON DGx Electrode Placement: Bitemporal Program/Pulse Width: 0.50 Energy Percent: 100 Seizure Duration By EEG (in seconds): 44 By Motor Observation (in seconds): 14 Medications Administration General Anesthetic: Etomidate (18) Muscle Relaxant: Succinylcholine (120) Airway Management Airway Management: Bag Mask Ventilation Treatment Recommendations No Changes Recommended: No change Pt Tolerated Procedure w/o Issue: Yes
[2024-05-08] MEDS: cloZAPine 100 MG TABLET 200 MG PO (20:06)
[2024-05-08] MEDS: Tamsulosin HCL 0.4 MG CAPSULE PO (20:06)
[2024-05-08] MEDS: traZODone HCL 50 MG TABLET PO (20:06)
[2024-05-09] MEDS: Glycopyrrolate 1 MG TABLET 0.5 MG PO ×2 (10:30→20:23)
[2024-05-09] MEDS: LORazepam 1 MG TABLET 2 MG PO ×3 (10:31→20:25)
[2024-05-09 10:32] VITALS: BP 136/58; PULSE 84; RESP 18; TEMP 36.4; O2SAT 95
--- NOTE | 2024-05-09 10:52 | HO.PSYCHPN ---
Subjective Subjective Date of Service: 05/09/24 Reason For Visit: Schizoaffective Disorder Subjective Notes: Conditional Voluntary Interim History: The nursing staff reported the patient is doing much better he is more verbal and with a spontaneous speech. On interview the patient reports that he is feeling much better still there is some delayed in his responses. Mental Status Exam Mental Status Exam Patient Appearance: Appropriate Patient Orientation: Person and Situation Level of Consciousness: Awake and Appropriate Patient Behavior: Guarded and Passive Mood Description: Withdrawn Affect Description: Constricted Patient Cognition Impaired: Yes Ability to Follow Directions: Good Speech Pattern: Clear Hallucinations: None Delusions: Ideas of Reference Thought Process: Distracted and Slowed Thinking Thought Content: positive for [place] and positive for Poverty of Content Judgement: Poor Diagnostics Vital Signs (24Hr): Vital Signs - 24 hr 05/08/24 13:55 05/08/24 15:07 05/08/24 15:12 Temperature 98.1 F 98.9 F Pulse Rate 77 83 84 Respiratory Rate 18 18 16 Blood Pressure 126/72 168/88 H 141/93 H Pulse Oximetry 98 98 98 Oxygen Delivery Method Room Air Nasal Cannula Nasal Cannula Oxygen Flow Rate 2 2 05/08/24 15:17 05/08/24 15:22 05/08/24 15:37 Temperature 97.5 F Pulse Rate 90 91 85 Respiratory Rate 16 16 16 Blood Pressure 151/98 H 146/92 H 145/81 H Pulse Oximetry 98 95 95 Oxygen Delivery Method Nasal Cannula Nasal Cannula Room Air Oxygen Flow Rate 2 2 05/08/24 15:52 05/08/24 16:12 05/08/24 20:00 Temperature 97.5 F 97.0 F 97.5 F Pulse Rate 83 85 86 Respiratory Rate 16 18 18 Blood Pressure 146/88 H 137/75 135/59 L Pulse Oximetry 95 96 97 Oxygen Delivery Method Room Air Room Air Oxygen Flow Rate 05/09/24 10:32 Temperature 97.5 F Pulse Rate 84 Respiratory Rate 18 Blood Pressure 136/58 L Pulse Oximetry 95 Oxygen Delivery Method Room Air Oxygen Flow Rate BMI result Body Mass Index 30.6 Labs 04/24/24 11:58 04/11/24 18:32 Medications Medications Current Medications Acetaminophen (Acetaminophen 325 Mg Tablet) 650 mg PO Q6H PRN PRN Reason: Headache/Pain Mild Scale (1-3) Al Hydroxide/Mg Hydroxide (Magnesium Hydrox/Alum Hydrox 30 Ml Oral.Susp) 30 ml PO Q6H PRN PRN Reason: Heartburn/Nausea Clozapine (Clozapine 100 Mg Tablet) 200 mg PO BEDTIME [facility] Last Admin: 05/08/24 20:06 Dose: 200 mg Glycopyrrolate (Glycopyrrolate 1 Mg Tablet) 0.5 mg PO BID [facility] Last Admin: 05/09/24 10:30 Dose: 0.5 mg Hydroxyzine HCl (Hydroxyzine Hcl 25 Mg Tablet) 25 mg PO Q6H PRN PRN Reason: Anxiety Last Admin: 04/26/24 20:11 Dose: 25 mg Lorazepam (Lorazepam 1 Mg Tablet) 2 mg PO TID [facility] Last Admin: 05/09/24 10:31 Dose: 2 mg Magnesium Hydroxide (Milk Of Magnesia 30 Ml Oral.Susp) 30 ml PO DAILY PRN PRN Reason: Constipation Last Admin: 05/03/24 18:00 Dose: 30 ml Ondansetron HCl (Ondansetron Odt 4 Mg Tab.Rapdis) 4 mg TRANSLINGU Q8H PRN PRN Reason: Nausea and Vomiting Tamsulosin HCl (Tamsulosin Hcl 0.4 Mg Capsule) 0.4 mg PO BEDTIME [facility] Last Admin: 05/08/24 20:06 Dose: 0.4 mg Trazodone HCl (Trazodone Hcl 50 Mg Tablet) 50 mg PO BEDTIME MRX1 PRN PRN Reason: Insomnia Last Admin: 05/08/24 20:06 Dose: 50 mg Allergies Allergies Allergy/AdvReac Type Severity Reaction Status Date / Time No Known Allergies [NKA] Allergy Unknown NONE Verified 04/11/24 15:35 Assessment & Plan Assessment & Plan (1) Catatonia: Status: Acute Code(s): F06.1 - Catatonic disorder due to known physiological condition (2) Schizoaffective disorder: Status: Acute Code(s): F25.9 - Schizoaffective disorder, unspecified (3) Tardive dyskinesia: Status: Acute Code(s): G24.01 - Drug induced subacute dyskinesia Plan The patient is a 58-year-old male with a history of schizoaffective disorder bipolar type and catatonia who recently relapsed on catatonic symptoms after he missed an ECT. He was previously admitted into this facility a few weeks ago and he was fairly stable with Clozaril, Ativan and ECT. Plan 1. Continue with Clozaril as prescribed. 2. Continue with Ativan 2 mg p.o. t.i.d. for catatonia. 3. ECT had been held for this week. We are going to try to convince his father to have ECT next week. Finally, on May 02 the father agreed to restart ECT 4. Slept study came back within normal limits. Reason for continued inpatient stay Substantial Risk for: inability to function, rapid decompensation and med/psych decompensation Time Spent With Patient Time: Total time managing care of this patient today __20__ minutes.
[2024-05-09 14:23] VITALS: BMI 31.4
[2024-05-09 20:00] VITALS: BP 130/68; PULSE 78; RESP 16; TEMP 36.6; O2SAT 96
[2024-05-09] MEDS: cloZAPine 100 MG TABLET 200 MG PO (20:25)
[2024-05-09] MEDS: Tamsulosin HCL 0.4 MG CAPSULE PO (20:25)
[2024-05-10] VITALS (10 sets, daily range): BP systolic 135–158; BP diastolic 71–86; PULSE 76–93; RESP 16–24; TEMP 36.1–36.9; O2SAT 95–99
--- NOTE | 2024-05-10 07:50 | MHC.SHP ---
Pre-Procedural Eval Section A - 24 Hr Update-Section A only Date of Service: 05/10/24 Changes since office visit: No Cold of Flu in the past 2 weeks, No New Medical Problems, No Changes in Medication and No Patient answered all questions The patient has been examined within 24 hours of the surgical procedure. The History & Physical has been completed within 30 days and I have reviewed it.: Yes Section B - Complete if H&P > 30 days Chief Complaint: Schizoaffective Disorder Allergies: Allergies Allergy/AdvReac Type Severity Reaction Status Date / Time No Known Allergies [NKA] Allergy Unknown NONE Verified 04/11/24 15:35 Plan I have reviewed the history and physical and performed a pertinent physical examination on my patient. No changes have occurred unless specified. Time Spent With Patient Time: Total time managing care of this patient today ____ minutes.
--- NOTE | 2024-05-10 08:01 | P.CONAN_ITS ---
[facility] Active Problems Active Problems: All Active Problems Catatonia (Acute) Pre-op evaluation (Acute) Tardive dyskinesia (Acute) Schizoaffective disorder (Acute) Nocturnal hypoxia (Acute) Schizoaffective disorder, depressive type (Acute) Benign prostate hyperplasia (Acute) Essential hypertension (Acute) Right hip pain (Acute) Past Medical History Medical History Tardive dyskinesia Mild sleep apnea Nocturnal hypoxia Routine medical exam Joint inflammation of right hand and wrist Status post fall Adult general medical exam Screening for colon cancer Screening for prostate cancer Cough BPH (benign prostatic hyperplasia) Family History Family History Mother Cancer Father Kidney agenesis Family history of problems with anesthesia: No Surgical History Surgical History History of colonoscopy (~06/15/21) History of tooth extraction History of root canal procedure History of Problems with Anesthesia: No Social History Social History Household Members: None Housing: Unknown / Unable to assess Are you a primary acute care clinical nurse specialist to a significant other at home: No Do you presently have visiting nurse or other home services: Yes Unable to assess alcohol history related to: Unable to respond Alcohol intake: former Patient Tobacco Use Status: Never used Tobacco e-Cigarette/Vaping Use: Never Used Second Hand Smoke Exposure: No Use of substances other than those prescribed or required for medical reasons: Unknown Currently Displaying Signs/Symptoms of Drug Intoxication Withdrawal: No Advance Directives: No Advance Directives Information Provided: No Do you have thoughts of harming others: None Do you have a plan to hurt others: No Plan Recently lost weight without trying: No How much weight loss: Not applicable Eating poorly because of decreased appetite: No Nutrition screen score: 0 Nutrition Risks: No Nutritional Risk service: No Current occupational status: employed Sexual orientation: Straight/Heterosexual Cognitive needs: No Hearing needs: No Vision needs: No Meds Allergies Allergy/AdvReac Type Severity Reaction Status Date / Time No Known Allergies [NKA] Allergy Unknown NONE Verified 04/11/24 15:35 Active Medications: Current Medications Acetaminophen (Acetaminophen 325 Mg Tablet) 650 mg PO Q6H PRN PRN Reason: Headache/Pain Mild Scale (1-3) Al Hydroxide/Mg Hydroxide (Magnesium Hydrox/Alum Hydrox 30 Ml Oral.Susp) 30 ml PO Q6H PRN PRN Reason: Heartburn/Nausea Clozapine (Clozapine 100 Mg Tablet) 200 mg PO BEDTIME [facility] Last Admin: 05/09/24 20:25 Dose: 200 mg Glycopyrrolate (Glycopyrrolate 1 Mg Tablet) 0.5 mg PO BID [facility] Last Admin: 05/09/24 20:23 Dose: 0.5 mg Hydroxyzine HCl (Hydroxyzine Hcl 25 Mg Tablet) 25 mg PO Q6H PRN PRN Reason: Anxiety Last Admin: 04/26/24 20:11 Dose: 25 mg Sodium Chloride (Ns) 1,000 mls @ 50 mls/hr IVCONT .Q20H [facility] Lactated Ringer's (Lr) 1,000 mls @ 50 mls/hr IVCONT .Q20H [facility] Lorazepam (Lorazepam 1 Mg Tablet) 2 mg PO TID [facility] Last Admin: 05/09/24 20:25 Dose: 2 mg Magnesium Hydroxide (Milk Of Magnesia 30 Ml Oral.Susp) 30 ml PO DAILY PRN PRN Reason: Constipation Last Admin: 05/03/24 18:00 Dose: 30 ml Ondansetron HCl (Ondansetron Odt 4 Mg Tab.Rapdis) 4 mg TRANSLINGU Q8H PRN PRN Reason: Nausea and Vomiting Tamsulosin HCl (Tamsulosin Hcl 0.4 Mg Capsule) 0.4 mg PO BEDTIME [facility] Last Admin: 05/09/24 20:25 Dose: 0.4 mg Trazodone HCl (Trazodone Hcl 50 Mg Tablet) 50 mg PO BEDTIME MRX1 PRN PRN Reason: Insomnia Last Admin: 05/08/24 20:06 Dose: 50 mg Home Medications ?Medication ?Instructions ?Recorded ?Confirmed ?Last Taken ?Type benztropine 0.5 mg tablet 0.5 mg PO BID 04/11/24 04/12/24 Unknown History Exam Height,Weight and Vital Signs: Height 5 ft 9 in Weight 96.343 kg Last Vital Signs Temp 97 F 05/10/24 07:28 Pulse 76 05/10/24 07:28 Resp 16 05/10/24 07:28 BP 135/83 05/10/24 07:28 Pulse Ox 99 05/10/24 07:28 O2 Del Method Room Air 05/10/24 07:28 O2 Flow Rate 2 05/08/24 15:22 Pertinent Lab Results Pertinent Lab Results: Laboratory Tests 04/11/24 04/12/24 04/14/24 18:32 08:04 07:32 WBC 8.5 17.5 H RBC 4.50 L 4.59 L Hgb 12.8 L 13.2 L Hct 39.3 L 40.3 L MCV 87.3 87.8 MCH 28.4 28.8 MCHC 32.6 32.8 RDW 13.4 13.7 Plt Count 224 D 197 MPV 10.4 11.1 Immature Gran % (Auto) 0.9 H 0.6 H Neut % (Auto) 70.9 82.2 H Lymph % (Auto) 21.0 9.2 L [place] % (Auto) 7.1 7.8 Eos % (Auto) 0.0 0.0 Baso % (Auto) 0.1 0.2 Lymph # (Auto) 1.8 1.6 [place] # (Auto) 0.6 1.4 H Eos # (Auto) 0.0 0.0 Baso # (Auto) 0.0 0.0 Abs Immat Gran (auto) 0.08 H 0.11 H Absolute Neuts (auto) 6.1 14.4 H Absolute Nucleated RBC 0.000 0.000 Nucleated RBC % (auto) 0.0 0.0 Smear Tech's Comments Sodium 143 Potassium 4.2 Chloride 110 H Carbon Dioxide 26 Anion Gap 11 L BUN 21 H Creatinine 1.32 Estim Creat Clear Calc 59.5 Estimated GFR 55 Random Glucose 81 Estimat Average Glucose 111 Hemoglobin A1c % 5.5 Calcium 9.1 Magnesium 2.1 Total Bilirubin 0.5 AST 19 ALT 12 Alkaline Phosphatase 56 Total Protein 7.4 Albumin 3.9 Triglycerides 88 Cholesterol 149 LDL Cholesterol, Calc 101 H HDL Cholesterol 31 L Vitamin B12 437 Folate 17.1 TSH 0.36 Free T4 1.35 Urine Color Urine Appearance Urine pH Ur Specific [place] Urine Protein Urine Glucose (UA) Urine Ketones Urine Blood Urine Nitrite Ur Leukocyte Esterase Urine Opiates Screen Ur Buprenorphine Scrn Ur Oxycodone Screen Urine Methadone Screen Urine Fentanyl Screen Ur Barbiturates Screen Ur Phencyclidine Scrn Ur Amphetamines Screen U Benzodiazepines Scrn Urine Cocaine Screen U Marijuana (THC) Screen Ethyl Alcohol < 10 04/14/24 04/21/24 04/22/24 10:02 08:20 12:07 WBC RBC Hgb Hct MCV MCH MCHC RDW Plt Count MPV Immature Gran % (Auto) Neut % (Auto) Lymph % (Auto) [place] % (Auto) Eos % (Auto) Baso % (Auto) Lymph # (Auto) [place] # (Auto) Eos # (Auto) Baso # (Auto) Abs Immat Gran (auto) Absolute Neuts (auto) 4.4 4.3 Absolute Nucleated RBC Nucleated RBC % (auto) Smear Tech's Comments Sodium Potassium Chloride Carbon Dioxide Anion Gap BUN Creatinine Estim Creat Clear Calc Estimated GFR Random Glucose Estimat Average Glucose Hemoglobin A1c % Calcium Magnesium Total Bilirubin AST ALT Alkaline Phosphatase Total Protein Albumin Triglycerides Cholesterol LDL Cholesterol, Calc HDL Cholesterol Vitamin B12 Folate TSH Free T4 Urine Color Yellow Urine Appearance Clear Urine pH 5.5 Ur Specific [place] 1.020 Urine Protein Negative Urine Glucose (UA) Negative Urine Ketones Negative Urine Blood Negative Urine Nitrite Negative Ur Leukocyte Esterase Negative Urine Opiates Screen Not Detected Ur Buprenorphine Scrn Not Detected Ur Oxycodone Screen Not Detected Urine Methadone Screen Not Detected Urine Fentanyl Screen Not Detected Ur Barbiturates Screen Not Detected Ur Phencyclidine Scrn Not Detected Ur Amphetamines Screen Not Detected U Benzodiazepines Scrn Not Detected Urine Cocaine Screen Not Detected U Marijuana (THC) Screen Not Detected Ethyl Alcohol 04/24/24 04/28/24 05/05/24 11:58 12:04 08:10 WBC 5.6 RBC 4.24 L Hgb 12.0 L Hct 36.8 L MCV 86.8 MCH 28.3 MCHC 32.6 RDW 13.3 Plt Count 125 L D MPV 11.7 Immature Gran % (Auto) 0.5 H Neut % (Auto) 69.6 Lymph % (Auto) 21.8 [place] % (Auto) 7.7 Eos % (Auto) 0.2 Baso % (Auto) 0.2 Lymph # (Auto) 1.2 [place] # (Auto) 0.4 Eos # (Auto) 0.0 Baso # (Auto) 0.0 Abs Immat Gran (auto) 0.03 Absolute Neuts (auto) 3.9 5.4 3.3 Absolute Nucleated RBC 0.000 Nucleated RBC % (auto) 0.0 Smear Tech's Comments VERIFIED Sodium Potassium Chloride Carbon Dioxide Anion Gap BUN Creatinine Estim Creat Clear Calc Estimated GFR Random Glucose Estimat Average Glucose Hemoglobin A1c % Calcium Magnesium Total Bilirubin AST ALT Alkaline Phosphatase Total Protein Albumin Triglycerides Cholesterol LDL Cholesterol, Calc HDL Cholesterol Vitamin B12 Folate TSH Free T4 Urine Color Urine Appearance Urine pH Ur Specific [place] Urine Protein Urine Glucose (UA) Urine Ketones Urine Blood Urine Nitrite Ur Leukocyte Esterase Urine Opiates Screen Ur Buprenorphine Scrn Ur Oxycodone Screen Urine Methadone Screen Urine Fentanyl Screen Ur Barbiturates Screen Ur Phencyclidine Scrn Ur Amphetamines Screen U Benzodiazepines Scrn Urine Cocaine Screen U Marijuana (THC) Screen Ethyl Alcohol Airway Mallampati Class: II TM Dist: >3cm Neck ROM: Full Heart: rrr Lungs: cta Assessment and Plan Assessment Anesthesia Assessment: Anesthesia Plan Discussed and Chart Reviewed Final Anesthetic Review Family History of Problems with Anesthesia: No History of Problems with Anesthesia: No NPO: Yes ASA Class: III Final Preanesthetic Review: No Changes in Pt Med Stat, Meds/Allgs Chart Reviewed and Consent Obtained/Reviewed Patient Risk: Intermediate Procedure Risk: Intermediate Anesthetic Plan Anesthetic Plan: GA Disposition: Standard PACU
[2024-05-10] MEDS: Glycopyrrolate 1 MG TABLET 0.5 MG PO ×2 (10:32→21:00)
[2024-05-10] MEDS: LORazepam 1 MG TABLET 2 MG PO (10:33)
[2024-05-10] MEDS: Milk of Magnesia 30 ML ORAL.SUSP PO (10:34)
--- NOTE | 2024-05-10 13:23 | P.PNPSI_ITS ---
Subjective Subjective Date of Service: 05/10/24 Reason For Visit: Schizoaffective Disorder Subjective Notes: Conditional Voluntary Interim History: The nursing staff reported the patient is doing much better, he was seen laughing inappropriately with staff, he slept 8 hours. The social insurance adviser reported that she contact [facility] case [employer]er and sealer and they will help for transportation for his ECT as an outpatient. On interview the patient denies new symptoms, she reports that she is feeling better Mental Status Exam Mental Status Exam Patient Appearance: Appropriate Patient Orientation: Person and Situation Level of Consciousness: Awake and Appropriate Patient Behavior: Guarded and Passive Mood Description: Withdrawn Affect Description: Constricted Patient Cognition Impaired: Yes Ability to Follow Directions: Good Speech Pattern: Clear Hallucinations: None Delusions: Paranoid Ideation and Ideas of Reference Thought Process: Distracted and Slowed Thinking Thought Content: positive for [place] and positive for Poverty of Content Judgement: Fair Diagnostics Vital Signs (24Hr): Vital Signs - 24 hr 05/09/24 20:00 05/10/24 07:28 05/10/24 08:20 Temperature 98 F 97 F 98.5 F Pulse Rate 78 76 91 Respiratory Rate 16 16 24 H Blood Pressure 130/68 135/83 155/79 H Pulse Oximetry 96 99 98 Oxygen Delivery Method Room Air Room Air Nasal Cannula Oxygen Flow Rate 2 05/10/24 08:25 05/10/24 08:30 05/10/24 08:35 Temperature Pulse Rate 89 87 87 Respiratory Rate 24 H 22 H 22 H Blood Pressure 158/86 H 153/85 H 142/82 H Pulse Oximetry 95 95 95 Oxygen Delivery Method Nasal Cannula Nasal Cannula Nasal Cannula Oxygen Flow Rate 2 2 2 05/10/24 08:50 05/10/24 09:05 05/10/24 09:34 Temperature 98.3 F 97.4 F Pulse Rate 85 83 87 Respiratory Rate 20 20 18 Blood Pressure 146/76 H 140/78 H Pulse Oximetry 95 95 Oxygen Delivery Method Room Air Room Air Oxygen Flow Rate 05/10/24 09:35 Temperature 97.4 F Pulse Rate 87 Respiratory Rate 18 Blood Pressure 144/71 H Pulse Oximetry 95 Oxygen Delivery Method Room Air Oxygen Flow Rate BMI result Body Mass Index 31.4 Labs 04/24/24 11:58 04/11/24 18:32 Medications Medications Current Medications Acetaminophen (Acetaminophen 325 Mg Tablet) 650 mg PO Q6H PRN PRN Reason: Headache/Pain Mild Scale (1-3) Al Hydroxide/Mg Hydroxide (Magnesium Hydrox/Alum Hydrox 30 Ml Oral.Susp) 30 ml PO Q6H PRN PRN Reason: Heartburn/Nausea Clozapine (Clozapine 100 Mg Tablet) 200 mg PO BEDTIME [facility] Last Admin: 05/09/24 20:25 Dose: 200 mg Glycopyrrolate (Glycopyrrolate 1 Mg Tablet) 0.5 mg PO BID [facility] Last Admin: 05/10/24 10:32 Dose: 0.5 mg Hydroxyzine HCl (Hydroxyzine Hcl 25 Mg Tablet) 25 mg PO Q6H PRN PRN Reason: Anxiety Last Admin: 04/26/24 20:11 Dose: 25 mg Sodium Chloride (Ns) 1,000 mls @ 50 mls/hr IVCONT .Q20H [facility] Lorazepam (Lorazepam 1 Mg Tablet) 2 mg PO TID [facility] Last Admin: 05/10/24 10:33 Dose: 2 mg Magnesium Hydroxide (Milk Of Magnesia 30 Ml Oral.Susp) 30 ml PO DAILY PRN PRN Reason: Constipation Last Admin: 05/10/24 10:34 Dose: 30 ml Naloxone HCl (Naloxone Hcl 0.4 Mg/Ml Vial) 0.04 mg IVPUSH Q5M PRN PRN Reason: Excessive sedation or RR < 8 Ondansetron HCl (Ondansetron Odt 4 Mg Tab.Rapdis) 4 mg TRANSLINGU Q8H PRN PRN Reason: Nausea and Vomiting Tamsulosin HCl (Tamsulosin Hcl 0.4 Mg Capsule) 0.4 mg PO BEDTIME [facility] Last Admin: 05/09/24 20:25 Dose: 0.4 mg Trazodone HCl (Trazodone Hcl 50 Mg Tablet) 50 mg PO BEDTIME MRX1 PRN PRN Reason: Insomnia Last Admin: 05/08/24 20:06 Dose: 50 mg Allergies Allergies Allergy/AdvReac Type Severity Reaction Status Date / Time No Known Allergies [NKA] Allergy Unknown NONE Verified 04/11/24 15:35 Assessment & Plan Assessment & Plan (1) Catatonia: Status: Acute Code(s): F06.1 - Catatonic disorder due to known physiological condition (2) Schizoaffective disorder: Status: Acute Code(s): F25.9 - Schizoaffective disorder, unspecified (3) Tardive dyskinesia: Status: Acute Code(s): G24.01 - Drug induced subacute dyskinesia Plan The patient is a 58-year-old male with a history of schizoaffective disorder bipolar type and catatonia who recently relapsed on catatonic symptoms after he missed an ECT. He was previously admitted into this facility a few weeks ago and he was fairly stable with Clozaril, Ativan and ECT. Plan 1. Continue with Clozaril as prescribed. 2. Continue with Ativan 2 mg p.o. t.i.d. for catatonia. 3. ECT had been held for this week. We are going to try to convince his father to have ECT next week. Finally, on May 02 the father agreed to restart ECT 4. Slept study came back within normal limits. Reason for continued inpatient stay Substantial Risk for: inability to function, rapid decompensation and med/psych decompensation Time Spent With Patient Time: Total time managing care of this patient today __20__ minutes.
[2024-05-10] MEDS: Tamsulosin HCL 0.4 MG CAPSULE PO (20:59)
[2024-05-10] MEDS: cloZAPine 100 MG TABLET 200 MG PO (20:59)
[2024-05-11 08:00] VITALS: BP 126/72; PULSE 72; RESP 20; TEMP 36.6; O2SAT 96
[2024-05-11] MEDS: Glycopyrrolate 1 MG TABLET 0.5 MG PO ×2 (08:49→20:02)
--- NOTE | 2024-05-11 10:55 | P.PNPSI_ITS ---
Subjective Subjective Date of Service: 05/11/24 Reason For Visit: Schizoaffective Disorder Subjective Notes: Conditional Voluntary Interim History: Patient was seen and discussed in rounds today. Records and plans were reviewed. He is doing much better and the ECT has been quite helpful. No complaints. No side effects. He has been pleasant and doing much better. Eating and sleeping well. No changes were made today Review of Systems Review of Systems Yes all other systems are reviewed and are negative Mental Status Exam Mental Status Exam Patient Appearance: Appropriate Patient Orientation: Person and Situation Level of Consciousness: Awake and Appropriate Patient Behavior: Guarded and Passive Mood Description: Withdrawn Affect Description: Constricted Patient Cognition Impaired: Yes Ability to Follow Directions: Good Speech Pattern: Clear Hallucinations: None Delusions: Paranoid Ideation and Ideas of Reference Thought Process: Distracted and Slowed Thinking Thought Content: positive for [place] and positive for Poverty of Content Judgement: Fair Diagnostics Vital Signs (24Hr): Vital Signs - 24 hr 05/10/24 20:00 05/11/24 08:00 Temperature 98.3 F 97.9 F Pulse Rate 93 72 Respiratory Rate 16 20 Blood Pressure 141/71 H 126/72 Pulse Oximetry 97 96 Oxygen Delivery Method Room Air Room Air BMI result Body Mass Index 31.4 Labs 04/24/24 11:58 04/11/24 18:32 Medications Medications Current Medications Acetaminophen (Acetaminophen 325 Mg Tablet) 650 mg PO Q6H PRN PRN Reason: Headache/Pain Mild Scale (1-3) Al Hydroxide/Mg Hydroxide (Magnesium Hydrox/Alum Hydrox 30 Ml Oral.Susp) 30 ml PO Q6H PRN PRN Reason: Heartburn/Nausea Clozapine (Clozapine 100 Mg Tablet) 200 mg PO BEDTIME [facility] Last Admin: 05/10/24 20:59 Dose: 200 mg Glycopyrrolate (Glycopyrrolate 1 Mg Tablet) 0.5 mg PO BID [facility] Last Admin: 05/11/24 08:49 Dose: 0.5 mg Hydroxyzine HCl (Hydroxyzine Hcl 25 Mg Tablet) 25 mg PO Q6H PRN PRN Reason: Anxiety Last Admin: 04/26/24 20:11 Dose: 25 mg Sodium Chloride (Ns) 1,000 mls @ 50 mls/hr IVCONT .Q20H [facility] Magnesium Hydroxide (Milk Of Magnesia 30 Ml Oral.Susp) 30 ml PO DAILY PRN PRN Reason: Constipation Last Admin: 05/10/24 10:34 Dose: 30 ml Naloxone HCl (Naloxone Hcl 0.4 Mg/Ml Vial) 0.04 mg IVPUSH Q5M PRN PRN Reason: Excessive sedation or RR < 8 Ondansetron HCl (Ondansetron Odt 4 Mg Tab.Rapdis) 4 mg TRANSLINGU Q8H PRN PRN Reason: Nausea and Vomiting Tamsulosin HCl (Tamsulosin Hcl 0.4 Mg Capsule) 0.4 mg PO BEDTIME [facility] Last Admin: 05/10/24 20:59 Dose: 0.4 mg Trazodone HCl (Trazodone Hcl 50 Mg Tablet) 50 mg PO BEDTIME MRX1 PRN PRN Reason: Insomnia Last Admin: 05/08/24 20:06 Dose: 50 mg Allergies Allergies Allergy/AdvReac Type Severity Reaction Status Date / Time No Known Allergies [NKA] Allergy Unknown NONE Verified 04/11/24 15:35 Assessment & Plan Assessment & Plan (1) Catatonia: Status: Acute Code(s): F06.1 - Catatonic disorder due to known physiological condition (2) Schizoaffective disorder: Status: Acute Code(s): F25.9 - Schizoaffective disorder, unspecified (3) Tardive dyskinesia: Status: Acute Code(s): G24.01 - Drug induced subacute dyskinesia Plan The patient is a 58-year-old male with a history of schizoaffective disorder bipolar type and catatonia who recently relapsed on catatonic symptoms after he missed an ECT. He was previously admitted into this facility a few weeks ago and he was fairly stable with Clozaril, Ativan and ECT. Plan 1. Continue with Clozaril as prescribed. 2. Continue with Ativan 2 mg p.o. t.i.d. for catatonia. 3. ECT had been held for this week. We are going to try to convince his father to have ECT next week. Finally, on May 02 the father agreed to restart ECT 4. Slept study came back within normal limits. 05/11 continue current plans and regimen Reason for continued inpatient stay Substantial Risk for: med/psych decompensation Time Spent With Patient Time: Total time managing care of this patient today ____ minutes.
[2024-05-11] MEDS: LORazepam 1 MG TABLET 2 MG PO ×2 (18:22→20:05)
[2024-05-11 20:00] VITALS: BP 110/60; PULSE 85; RESP 16; TEMP 37.1; O2SAT 93
[2024-05-11] MEDS: Tamsulosin HCL 0.4 MG CAPSULE PO (20:02)
[2024-05-11] MEDS: cloZAPine 100 MG TABLET 200 MG PO (20:02)
[2024-05-12 07:47] LABS: Neut%MD 63.8 %; Neutrophils Absolute Auto 3.3 x10*3/uL (2.0-8.3); WBCANC 5.1 X10*3/uL
[2024-05-12 08:00] VITALS: BP 119/70; PULSE 80; RESP 20; TEMP 36.4; O2SAT 96
[2024-05-12] MEDS: LORazepam 1 MG TABLET 2 MG PO ×3 (08:24→20:26)
[2024-05-12] MEDS: Glycopyrrolate 1 MG TABLET 0.5 MG PO ×2 (08:24→20:27)
--- NOTE | 2024-05-12 10:58 | P.PNPSI_ITS ---
Subjective Subjective Date of Service: 05/12/24 Reason For Visit: Schizoaffective Disorder Subjective Notes: Conditional Voluntary Interim History: Patient was seen and discussed in rounds today. Records and plans were reviewed. He continues to be stable and improved with brighter affect. Out his discharge which he will review on Monday with his doctor. Eating and sleeping adequately and the Ativan has been quite helpful for him. No changes were made today Review of Systems Review of Systems Yes all other systems are reviewed and are negative Mental Status Exam Mental Status Exam Patient Appearance: Appropriate Patient Orientation: Person and Situation Level of Consciousness: Awake and Appropriate Patient Behavior: Guarded and Passive Mood Description: Withdrawn Affect Description: Constricted Patient Cognition Impaired: Yes Ability to Follow Directions: Good Speech Pattern: Clear Hallucinations: None Delusions: Paranoid Ideation and Ideas of Reference Thought Process: Distracted and Slowed Thinking Thought Content: positive for [place] and positive for Poverty of Content Judgement: Fair Diagnostics Vital Signs (24Hr): Vital Signs - 24 hr 05/11/24 20:00 05/12/24 08:00 Temperature 98.7 F 97.5 F Pulse Rate 85 80 Respiratory Rate 16 20 Blood Pressure 110/60 119/70 Pulse Oximetry 93 96 Oxygen Delivery Method Room Air Room Air BMI result Body Mass Index 31.4 Labs 04/24/24 11:58 04/11/24 18:32 Labs: Laboratory Results - last 48 hr 05/12/24 07:41 Absolute Neuts (auto) 3.3 Medications Medications Current Medications Acetaminophen (Acetaminophen 325 Mg Tablet) 650 mg PO Q6H PRN PRN Reason: Headache/Pain Mild Scale (1-3) Al Hydroxide/Mg Hydroxide (Magnesium Hydrox/Alum Hydrox 30 Ml Oral.Susp) 30 ml PO Q6H PRN PRN Reason: Heartburn/Nausea Clozapine (Clozapine 100 Mg Tablet) 200 mg PO BEDTIME [facility] Last Admin: 05/11/24 20:02 Dose: 200 mg Glycopyrrolate (Glycopyrrolate 1 Mg Tablet) 0.5 mg PO BID [facility] Last Admin: 05/12/24 08:24 Dose: 0.5 mg Hydroxyzine HCl (Hydroxyzine Hcl 25 Mg Tablet) 25 mg PO Q6H PRN PRN Reason: Anxiety Last Admin: 04/26/24 20:11 Dose: 25 mg Lorazepam (Lorazepam 1 Mg Tablet) 2 mg PO TID [facility] Last Admin: 05/12/24 08:24 Dose: 2 mg Magnesium Hydroxide (Milk Of Magnesia 30 Ml Oral.Susp) 30 ml PO DAILY PRN PRN Reason: Constipation Last Admin: 05/10/24 10:34 Dose: 30 ml Naloxone HCl (Naloxone Hcl 0.4 Mg/Ml Vial) 0.04 mg IVPUSH Q5M PRN PRN Reason: Excessive sedation or RR < 8 Ondansetron HCl (Ondansetron Odt 4 Mg Tab.Rapdis) 4 mg TRANSLINGU Q8H PRN PRN Reason: Nausea and Vomiting Tamsulosin HCl (Tamsulosin Hcl 0.4 Mg Capsule) 0.4 mg PO BEDTIME [facility] Last Admin: 05/11/24 20:02 Dose: 0.4 mg Trazodone HCl (Trazodone Hcl 50 Mg Tablet) 50 mg PO BEDTIME MRX1 PRN PRN Reason: Insomnia Last Admin: 05/08/24 20:06 Dose: 50 mg Allergies Allergies Allergy/AdvReac Type Severity Reaction Status Date / Time No Known Allergies [NKA] Allergy Unknown NONE Verified 04/11/24 15:35 Assessment & Plan Assessment & Plan (1) Catatonia: Status: Acute Code(s): F06.1 - Catatonic disorder due to known physiological condition (2) Schizoaffective disorder: Status: Acute Code(s): F25.9 - Schizoaffective disorder, unspecified (3) Tardive dyskinesia: Status: Acute Code(s): G24.01 - Drug induced subacute dyskinesia Plan The patient is a 58-year-old male with a history of schizoaffective disorder bipolar type and catatonia who recently relapsed on catatonic symptoms after he missed an ECT. He was previously admitted into this facility a few weeks ago and he was fairly stable with Clozaril, Ativan and ECT. Plan 1. Continue with Clozaril as prescribed. 2. Continue with Ativan 2 mg p.o. t.i.d. for catatonia. 3. ECT had been held for this week. We are going to try to convince his father to have ECT next week. Finally, on May 02 the father agreed to restart ECT 4. Slept study came back within normal limits. 05/11 continue current plans and regimen 05/12: Continue current regimen and plans. Reason for continued inpatient stay Substantial Risk for: med/psych decompensation Time Spent With Patient Time: Total time managing care of this patient today ____ minutes.
[2024-05-12 19:23] VITALS: BP 136/72; PULSE 87; RESP 16; TEMP 37; O2SAT 96
[2024-05-12] MEDS: cloZAPine 100 MG TABLET 200 MG PO (20:26)
[2024-05-12] MEDS: Tamsulosin HCL 0.4 MG CAPSULE PO (20:26)
[2024-05-13 07:52] VITALS: BP 118/58; PULSE 67; RESP 16; TEMP 36.4; O2SAT 98
[2024-05-13] MEDS: LORazepam 1 MG TABLET 2 MG PO ×3 (08:05→20:33)
[2024-05-13] MEDS: Glycopyrrolate 1 MG TABLET 0.5 MG PO ×2 (08:05→20:34)
--- NOTE | 2024-05-13 12:17 | HO.PSYCHPN ---
Subjective Subjective Date of Service: 05/13/24 Reason For Visit: Schizoaffective Disorder Subjective Notes: Conditional Voluntary Interim History: Patient was seen and discussed in rounds today. Records and plans were reviewed. He is doing fairly well and waiting ECT treatment. Eating and sleeping adequately. No SI. No changes were made today Review of Systems Review of Systems Yes all other systems are reviewed and are negative Mental Status Exam Mental Status Exam Patient Appearance: Appropriate Patient Orientation: Person and Situation Level of Consciousness: Awake and Appropriate Patient Behavior: Guarded and Passive Mood Description: Withdrawn Affect Description: Constricted Patient Cognition Impaired: Yes Ability to Follow Directions: Good Speech Pattern: Clear Hallucinations: None Delusions: Paranoid Ideation and Ideas of Reference Thought Process: Distracted and Slowed Thinking Thought Content: positive for [place] and positive for Poverty of Content Judgement: Fair Diagnostics Vital Signs (24Hr): Vital Signs - 24 hr 05/12/24 19:23 05/13/24 07:52 Temperature 98.6 F 97.5 F Pulse Rate 87 67 Respiratory Rate 16 16 Blood Pressure 136/72 118/58 L Pulse Oximetry 96 98 Oxygen Delivery Method Room Air Room Air BMI result Body Mass Index 31.4 Labs 04/24/24 11:58 04/11/24 18:32 Labs: Laboratory Results - last 48 hr 05/12/24 07:41 Absolute Neuts (auto) 3.3 Medications Medications Current Medications Acetaminophen (Acetaminophen 325 Mg Tablet) 650 mg PO Q6H PRN PRN Reason: Headache/Pain Mild Scale (1-3) Al Hydroxide/Mg Hydroxide (Magnesium Hydrox/Alum Hydrox 30 Ml Oral.Susp) 30 ml PO Q6H PRN PRN Reason: Heartburn/Nausea Clozapine (Clozapine 100 Mg Tablet) 200 mg PO BEDTIME [facility] Last Admin: 05/12/24 20:26 Dose: 200 mg Glycopyrrolate (Glycopyrrolate 1 Mg Tablet) 0.5 mg PO BID [facility] Last Admin: 05/13/24 08:05 Dose: 0.5 mg Hydroxyzine HCl (Hydroxyzine Hcl 25 Mg Tablet) 25 mg PO Q6H PRN PRN Reason: Anxiety Last Admin: 04/26/24 20:11 Dose: 25 mg Lorazepam (Lorazepam 1 Mg Tablet) 2 mg PO TID [facility] Last Admin: 05/13/24 08:05 Dose: 2 mg Magnesium Hydroxide (Milk Of Magnesia 30 Ml Oral.Susp) 30 ml PO DAILY PRN PRN Reason: Constipation Last Admin: 05/10/24 10:34 Dose: 30 ml Naloxone HCl (Naloxone Hcl 0.4 Mg/Ml Vial) 0.04 mg IVPUSH Q5M PRN PRN Reason: Excessive sedation or RR < 8 Ondansetron HCl (Ondansetron Odt 4 Mg Tab.Rapdis) 4 mg TRANSLINGU Q8H PRN PRN Reason: Nausea and Vomiting Tamsulosin HCl (Tamsulosin Hcl 0.4 Mg Capsule) 0.4 mg PO BEDTIME [facility] Last Admin: 05/12/24 20:26 Dose: 0.4 mg Trazodone HCl (Trazodone Hcl 50 Mg Tablet) 50 mg PO BEDTIME MRX1 PRN PRN Reason: Insomnia Last Admin: 05/08/24 20:06 Dose: 50 mg Allergies Allergies Allergy/AdvReac Type Severity Reaction Status Date / Time No Known Allergies [NKA] Allergy Unknown NONE Verified 04/11/24 15:35 Assessment & Plan Assessment & Plan (1) Catatonia: Status: Acute Code(s): F06.1 - Catatonic disorder due to known physiological condition (2) Schizoaffective disorder: Status: Acute Code(s): F25.9 - Schizoaffective disorder, unspecified (3) Tardive dyskinesia: Status: Acute Code(s): G24.01 - Drug induced subacute dyskinesia Plan The patient is a 58-year-old male with a history of schizoaffective disorder bipolar type and catatonia who recently relapsed on catatonic symptoms after he missed an ECT. He was previously admitted into this facility a few weeks ago and he was fairly stable with Clozaril, Ativan and ECT. Plan 1. Continue with Clozaril as prescribed. 2. Continue with Ativan 2 mg p.o. t.i.d. for catatonia. 3. ECT had been held for this week. We are going to try to convince his father to have ECT next week. Finally, on May 02 the father agreed to restart ECT 4. Slept study came back within normal limits. 05/11 continue current plans and regimen 05/12: Continue current regimen and plans. 05/13: Continue current regimen and plans Reason for continued inpatient stay Substantial Risk for: med/psych decompensation Time Spent With Patient Time: Total time managing care of this patient today ____ minutes.
[2024-05-13 16:20] LABS: Glucose, Whole Blood 103 mg/dL (60-115)
[2024-05-13 20:00] VITALS: BP 132/70; PULSE 91; RESP 16; TEMP 37.2; O2SAT 96
[2024-05-13] MEDS: cloZAPine 100 MG TABLET 200 MG PO (20:32)
[2024-05-13] MEDS: Tamsulosin HCL 0.4 MG CAPSULE PO (20:33)
[2024-05-14] MEDS: LORazepam 1 MG TABLET 2 MG PO ×3 (07:46→20:58)
[2024-05-14] MEDS: Glycopyrrolate 1 MG TABLET 0.5 MG PO ×2 (07:46→20:58)
[2024-05-14 08:00] VITALS: BP 138/76; PULSE 78; RESP 16; TEMP 36.6; O2SAT 98
--- NOTE | 2024-05-14 11:56 | P.PNPSI_ITS ---
Subjective Subjective Date of Service: 05/14/24 Reason For Visit: Schizoaffective Disorder Subjective Notes: Conditional Voluntary Interim History: The nursing staff reported the patient had been pleasant, slept well compliant with treatment. We will have a family meeting with [facility] staff and his father probably discharge next week. On interview the patient reports that he is feeling much better. Mental Status Exam Mental Status Exam Patient Appearance: Appropriate Patient Orientation: Person and Situation Level of Consciousness: Awake and Appropriate Patient Behavior: Guarded and Passive Mood Description: Withdrawn Affect Description: Constricted Patient Cognition Impaired: Yes Ability to Follow Directions: Good Speech Pattern: Clear Hallucinations: None Delusions: Ideas of Reference Thought Process: Distracted and Slowed Thinking Thought Content: positive for [place] and positive for Poverty of Content Judgement: Fair Diagnostics Vital Signs (24Hr): Vital Signs - 24 hr 05/13/24 20:00 Temperature 98.9 F Pulse Rate 91 Respiratory Rate 16 Blood Pressure 132/70 Pulse Oximetry 96 Oxygen Delivery Method Room Air BMI result Body Mass Index 31.4 Labs 04/24/24 11:58 04/11/24 18:32 Labs: Laboratory Results - last 48 hr 05/13/24 16:16 POC Glucose 103 Medications Medications Current Medications Acetaminophen (Acetaminophen 325 Mg Tablet) 650 mg PO Q6H PRN PRN Reason: Headache/Pain Mild Scale (1-3) Al Hydroxide/Mg Hydroxide (Magnesium Hydrox/Alum Hydrox 30 Ml Oral.Susp) 30 ml PO Q6H PRN PRN Reason: Heartburn/Nausea Clozapine (Clozapine 100 Mg Tablet) 200 mg PO BEDTIME [facility] Last Admin: 05/13/24 20:32 Dose: 200 mg Glycopyrrolate (Glycopyrrolate 1 Mg Tablet) 0.5 mg PO BID [facility] Last Admin: 05/14/24 07:46 Dose: 0.5 mg Hydroxyzine HCl (Hydroxyzine Hcl 25 Mg Tablet) 25 mg PO Q6H PRN PRN Reason: Anxiety Last Admin: 04/26/24 20:11 Dose: 25 mg Lorazepam (Lorazepam 1 Mg Tablet) 2 mg PO TID [facility] Last Admin: 05/14/24 07:46 Dose: 2 mg Magnesium Hydroxide (Milk Of Magnesia 30 Ml Oral.Susp) 30 ml PO DAILY PRN PRN Reason: Constipation Last Admin: 05/10/24 10:34 Dose: 30 ml Naloxone HCl (Naloxone Hcl 0.4 Mg/Ml Vial) 0.04 mg IVPUSH Q5M PRN PRN Reason: Excessive sedation or RR < 8 Ondansetron HCl (Ondansetron Odt 4 Mg Tab.Rapdis) 4 mg TRANSLINGU Q8H PRN PRN Reason: Nausea and Vomiting Tamsulosin HCl (Tamsulosin Hcl 0.4 Mg Capsule) 0.4 mg PO BEDTIME [facility] Last Admin: 05/13/24 20:33 Dose: 0.4 mg Trazodone HCl (Trazodone Hcl 50 Mg Tablet) 50 mg PO BEDTIME MRX1 PRN PRN Reason: Insomnia Last Admin: 05/08/24 20:06 Dose: 50 mg Allergies Allergies Allergy/AdvReac Type Severity Reaction Status Date / Time No Known Allergies [NKA] Allergy Unknown NONE Verified 04/11/24 15:35 Assessment & Plan Assessment & Plan (1) Catatonia: Status: Acute Code(s): F06.1 - Catatonic disorder due to known physiological condition (2) Schizoaffective disorder: Status: Acute Code(s): F25.9 - Schizoaffective disorder, unspecified (3) Tardive dyskinesia: Status: Acute Code(s): G24.01 - Drug induced subacute dyskinesia Plan The patient is a 58-year-old male with a history of schizoaffective disorder bipolar type and catatonia who recently relapsed on catatonic symptoms after he missed an ECT. He was previously admitted into this facility a few weeks ago and he was fairly stable with Clozaril, Ativan and ECT. Plan 1. Continue with Clozaril as prescribed. 2. Continue with Ativan 2 mg p.o. t.i.d. for catatonia. 3. ECT had been held for this week. We are going to try to convince his father to have ECT next week. Finally, on May 02 the father agreed to restart ECT 4. Slept study came back within normal limits. 5. Family meeting for May 15 with [facility] staff and his father Reason for continued inpatient stay Substantial Risk for: inability to function, rapid decompensation and med/psych decompensation Time Spent With Patient Time: Total time managing care of this patient today __20__ minutes.
[2024-05-14 20:00] VITALS: BP 137/80; PULSE 100; RESP 18; TEMP 37.8; O2SAT 100
[2024-05-14] MEDS: cloZAPine 100 MG TABLET 200 MG PO (20:56)
[2024-05-14] MEDS: Acetaminophen 325 MG TABLET 650 MG PO (20:57)
[2024-05-14] MEDS: Tamsulosin HCL 0.4 MG CAPSULE PO (20:58)
[2024-05-14 21:36] LABS: Influenza A PCR NEGATIVE (Negative); Influenza B PCR NEGATIVE (Negative); Resp Syncy Virus RNA Qual PCR NEGATIVE (Negative); SARS COV2 PCR INHOUSE NEGATIVE (Negative)
[2024-05-14 22:38] VITALS: TEMP 37.5
[2024-05-15 09:00] VITALS: BP 113/58; PULSE 111; RESP 15; TEMP 37.7; O2SAT 95
--- NOTE | 2024-05-15 09:05 | PC.NURSE ---
Pt has a pulse of 111 nd a temp of 99.9. [facility] bond writer reported this information to provider, as pt has ECT scheduled for today. Provider stated no concern.
[2024-05-15 12:59] VITALS: BP 119/75; PULSE 101; RESP 18; TEMP 37.6; O2SAT 95
--- NOTE | 2024-05-15 13:09 | MHC.SHP ---
Pre-Procedural Eval Section A - 24 Hr Update-Section A only Date of Service: 05/15/24 The patient is an INPATIENT: Yes Changes since office visit: No Cold of Flu in the past 2 weeks, No New Medical Problems, No Changes in Medication and No Patient answered all questions The patient has been examined within 24 hours of the surgical procedure. The History & Physical has been completed within 30 days and I have reviewed it.: Yes Section B - Complete if H&P > 30 days Chief Complaint: Schizoaffective Disorder Allergies: Allergies Allergy/AdvReac Type Severity Reaction Status Date / Time No Known Allergies [NKA] Allergy Unknown NONE Verified 04/11/24 15:35 Plan I have reviewed the history and physical and performed a pertinent physical examination on my patient. No changes have occurred unless specified. Time Spent With Patient Time: Total time managing care of this patient today ____ minutes.
--- NOTE | 2024-05-15 13:27 | P.CONAN_ITS ---
HPI - Anesthesia Eval Consult details Narrative: 58 yo male patient for ECT Patient seen. However post assessment, patient revealed that he had a bite of a cheeseburger about an hour ago. Procedure will be cancelled and rescheduled. PMFSH Active Problems Active Problems: All Active Problems Catatonia (Acute) Pre-op evaluation (Acute) Tardive dyskinesia (Acute) Schizoaffective disorder (Acute) Nocturnal hypoxia (Acute) Schizoaffective disorder, depressive type (Acute) Benign prostate hyperplasia (Acute) Essential hypertension (Acute) Right hip pain (Acute) Past Medical History Medical History Tardive dyskinesia Mild sleep apnea Nocturnal hypoxia Routine medical exam Joint inflammation of right hand and wrist Status post fall Adult general medical exam Screening for colon cancer Screening for prostate cancer Cough BPH (benign prostatic hyperplasia) Family History Family History Mother Cancer Father Kidney agenesis Family history of problems with anesthesia: No Surgical History Surgical History History of colonoscopy (~06/15/21) History of tooth extraction History of root canal procedure History of Problems with Anesthesia: No Social History Social History Household Members: None Housing: Unknown / Unable to assess Are you a primary care trainer to a significant other at home: No Do you presently have visiting nurse or other home services: Yes Unable to assess alcohol history related to: Unable to respond Alcohol intake: former Patient Tobacco Use Status: Never used Tobacco e-Cigarette/Vaping Use: Never Used Second Hand Smoke Exposure: No Use of substances other than those prescribed or required for medical reasons: Unknown Currently Displaying Signs/Symptoms of Drug Intoxication Withdrawal: No Advance Directives: No Advance Directives Information Provided: No Do you have thoughts of harming others: None Do you have a plan to hurt others: No Plan Recently lost weight without trying: No How much weight loss: Not applicable Eating poorly because of decreased appetite: No Nutrition screen score: 0 Nutrition Risks: No Nutritional Risk service: No Current occupational status: employed Sexual orientation: Straight/Heterosexual Cognitive needs: No Hearing needs: No Vision needs: No Meds Allergies Allergy/AdvReac Type Severity Reaction Status Date / Time No Known Allergies [NKA] Allergy Unknown NONE Verified 04/11/24 15:35 Active Medications: Current Medications Acetaminophen (Acetaminophen 325 Mg Tablet) 650 mg PO Q6H PRN PRN Reason: Headache/Pain Mild Scale (1-3) Last Admin: 05/14/24 20:57 Dose: 650 mg Al Hydroxide/Mg Hydroxide (Magnesium Hydrox/Alum Hydrox 30 Ml Oral.Susp) 30 ml PO Q6H PRN PRN Reason: Heartburn/Nausea Clozapine (Clozapine 100 Mg Tablet) 200 mg PO BEDTIME [facility] Last Admin: 05/14/24 20:56 Dose: 200 mg Glycopyrrolate (Glycopyrrolate 1 Mg Tablet) 0.5 mg PO BID [facility] Last Admin: 05/15/24 08:24 Dose: Not Given Hydroxyzine HCl (Hydroxyzine Hcl 25 Mg Tablet) 25 mg PO Q6H PRN PRN Reason: Anxiety Last Admin: 04/26/24 20:11 Dose: 25 mg Lorazepam (Lorazepam 1 Mg Tablet) 2 mg PO TID [facility] Last Admin: 05/15/24 08:25 Dose: Not Given Magnesium Hydroxide (Milk Of Magnesia 30 Ml Oral.Susp) 30 ml PO DAILY PRN PRN Reason: Constipation Last Admin: 05/10/24 10:34 Dose: 30 ml Naloxone HCl (Naloxone Hcl 0.4 Mg/Ml Vial) 0.04 mg IVPUSH Q5M PRN PRN Reason: Excessive sedation or RR < 8 Ondansetron HCl (Ondansetron Odt 4 Mg Tab.Rapdis) 4 mg TRANSLINGU Q8H PRN PRN Reason: Nausea and Vomiting Tamsulosin HCl (Tamsulosin Hcl 0.4 Mg Capsule) 0.4 mg PO BEDTIME [facility] Last Admin: 05/14/24 20:58 Dose: 0.4 mg Trazodone HCl (Trazodone Hcl 50 Mg Tablet) 50 mg PO BEDTIME MRX1 PRN PRN Reason: Insomnia Last Admin: 05/08/24 20:06 Dose: 50 mg Home Medications ?Medication ?Instructions ?Recorded ?Confirmed ?Last Taken ?Type benztropine 0.5 mg tablet 0.5 mg PO BID 04/11/24 04/12/24 Unknown History Exam Height,Weight and Vital Signs: Height 5 ft 9 in Weight 96.343 kg Last Vital Signs Temp 99.7 F 05/15/24 12:59 Pulse 101 H 05/15/24 12:59 Resp 18 05/15/24 12:59 BP 119/75 05/15/24 12:59 Pulse Ox 95 05/15/24 12:59 O2 Del Method Nasal Cannula 05/15/24 12:59 O2 Flow Rate 2 05/15/24 12:59 Pertinent Lab Results Pertinent Lab Results: Laboratory Tests 04/11/24 04/12/24 04/14/24 18:32 08:04 07:32 WBC 8.5 17.5 H RBC 4.50 L 4.59 L Hgb 12.8 L 13.2 L Hct 39.3 L 40.3 L MCV 87.3 87.8 MCH 28.4 28.8 MCHC 32.6 32.8 RDW 13.4 13.7 Plt Count 224 D 197 MPV 10.4 11.1 Immature Gran % (Auto) 0.9 H 0.6 H Neut % (Auto) 70.9 82.2 H Lymph % (Auto) 21.0 9.2 L [place] % (Auto) 7.1 7.8 Eos % (Auto) 0.0 0.0 Baso % (Auto) 0.1 0.2 Lymph # (Auto) 1.8 1.6 [place] # (Auto) 0.6 1.4 H Eos # (Auto) 0.0 0.0 Baso # (Auto) 0.0 0.0 Abs Immat Gran (auto) 0.08 H 0.11 H Absolute Neuts (auto) 6.1 14.4 H Absolute Nucleated RBC 0.000 0.000 Nucleated RBC % (auto) 0.0 0.0 Smear Tech's Comments Sodium 143 Potassium 4.2 Chloride 110 H Carbon Dioxide 26 Anion Gap 11 L BUN 21 H Creatinine 1.32 Estim Creat Clear Calc 59.5 Estimated GFR 55 POC Glucose Random Glucose 81 Estimat Average Glucose 111 Hemoglobin A1c % 5.5 Calcium 9.1 Magnesium 2.1 Total Bilirubin 0.5 AST 19 ALT 12 Alkaline Phosphatase 56 Total Protein 7.4 Albumin 3.9 Triglycerides 88 Cholesterol 149 LDL Cholesterol, Calc 101 H HDL Cholesterol 31 L Vitamin B12 437 Folate 17.1 TSH 0.36 Free T4 1.35 Urine Color Urine Appearance Urine pH Ur Specific [place] Urine Protein Urine Glucose (UA) Urine Ketones Urine Blood Urine Nitrite Ur Leukocyte Esterase Urine Opiates Screen Ur Buprenorphine Scrn Ur Oxycodone Screen Urine Methadone Screen Urine Fentanyl Screen Ur Barbiturates Screen Ur Phencyclidine Scrn Ur Amphetamines Screen U Benzodiazepines Scrn Urine Cocaine Screen U Marijuana (THC) Screen Ethyl Alcohol < 10 Influenza Type A (PCR) Influenza Type B (PCR) RSV RNA Qual (PCR) SARS-CoV-2 RNA (RT-PCR) 04/14/24 04/21/24 04/22/24 10:02 08:20 12:07 WBC RBC Hgb Hct MCV MCH MCHC RDW Plt Count MPV Immature Gran % (Auto) Neut % (Auto) Lymph % (Auto) [place] % (Auto) Eos % (Auto) Baso % (Auto) Lymph # (Auto) [place] # (Auto) Eos # (Auto) Baso # (Auto) Abs Immat Gran (auto) Absolute Neuts (auto) 4.4 4.3 Absolute Nucleated RBC Nucleated RBC % (auto) Smear Tech's Comments Sodium Potassium Chloride Carbon Dioxide Anion Gap BUN Creatinine Estim Creat Clear Calc Estimated GFR POC Glucose Random Glucose Estimat Average Glucose Hemoglobin A1c % Calcium Magnesium Total Bilirubin AST ALT Alkaline Phosphatase Total Protein Albumin Triglycerides Cholesterol LDL Cholesterol, Calc HDL Cholesterol Vitamin B12 Folate TSH Free T4 Urine Color Yellow Urine Appearance Clear Urine pH 5.5 Ur Specific Sylvia 1.020 Urine Protein Negative Urine Glucose (UA) Negative Urine Ketones Negative Urine Blood Negative Urine Nitrite Negative Ur Leukocyte Esterase Negative Urine Opiates Screen Not Detected Ur Buprenorphine Scrn Not Detected Ur Oxycodone Screen Not Detected Urine Methadone Screen Not Detected Urine Fentanyl Screen Not Detected Ur Barbiturates Screen Not Detected Ur Phencyclidine Scrn Not Detected Ur Amphetamines Screen Not Detected U Benzodiazepines Scrn Not Detected Urine Cocaine Screen Not Detected U Marijuana (THC) Screen Not Detected Ethyl Alcohol Influenza Type A (PCR) Influenza Type B (PCR) RSV RNA Qual (PCR) SARS-CoV-2 RNA (RT-PCR) 04/24/24 04/28/24 05/05/24 11:58 12:04 08:10 WBC 5.6 RBC 4.24 L Hgb 12.0 L Hct 36.8 L MCV 86.8 MCH 28.3 MCHC 32.6 RDW 13.3 Plt Count 125 L D MPV 11.7 Immature Gran % (Auto) 0.5 H Neut % (Auto) 69.6 Lymph % (Auto) 21.8 [place] % (Auto) 7.7 Eos % (Auto) 0.2 Baso % (Auto) 0.2 Lymph # (Auto) 1.2 [place] # (Auto) 0.4 Eos # (Auto) 0.0 Baso # (Auto) 0.0 Abs Immat Gran (auto) 0.03 Absolute Neuts (auto) 3.9 5.4 3.3 Absolute Nucleated RBC 0.000 Nucleated RBC % (auto) 0.0 Smear Tech's Comments VERIFIED Sodium Potassium Chloride Carbon Dioxide Anion Gap BUN Creatinine Estim Creat Clear Calc Estimated GFR POC Glucose Random Glucose Estimat Average Glucose Hemoglobin A1c % Calcium Magnesium Total Bilirubin AST ALT Alkaline Phosphatase Total Protein Albumin Triglycerides Cholesterol LDL Cholesterol, Calc HDL Cholesterol Vitamin B12 Folate TSH Free T4 Urine Color Urine Appearance Urine pH Ur Specific Sylvia Urine Protein Urine Glucose (UA) Urine Ketones Urine Blood Urine Nitrite Ur Leukocyte Esterase Urine Opiates Screen Ur Buprenorphine Scrn Ur Oxycodone Screen Urine Methadone Screen Urine Fentanyl Screen Ur Barbiturates Screen Ur Phencyclidine Scrn Ur Amphetamines Screen U Benzodiazepines Scrn Urine Cocaine Screen U Marijuana (THC) Screen Ethyl Alcohol Influenza Type A (PCR) Influenza Type B (PCR) RSV RNA Qual (PCR) SARS-CoV-2 RNA (RT-PCR) 05/12/24 05/13/24 05/14/24 07:41 16:16 20:48 WBC RBC Hgb Hct MCV MCH MCHC RDW Plt Count MPV Immature Gran % (Auto) Neut % (Auto) Lymph % (Auto) [place] % (Auto) Eos % (Auto) Baso % (Auto) Lymph # (Auto) [place] # (Auto) Eos # (Auto) Baso # (Auto) Abs Immat Gran (auto) Absolute Neuts (auto) 3.3 Absolute Nucleated RBC Nucleated RBC % (auto) Smear Tech's Comments Sodium Potassium Chloride Carbon Dioxide Anion Gap BUN Creatinine Estim Creat Clear Calc Estimated GFR POC Glucose 103 Random Glucose Estimat Average Glucose Hemoglobin A1c % Calcium Magnesium Total Bilirubin AST ALT Alkaline Phosphatase Total Protein Albumin Triglycerides Cholesterol LDL Cholesterol, Calc HDL Cholesterol Vitamin B12 Folate TSH Free T4 Urine Color Urine Appearance Urine pH Ur Specific Syl[place] Urine Protein Urine Glucose (UA) Urine Ketones Urine Blood Urine Nitrite Ur Leukocyte Esterase Urine Opiates Screen Ur Buprenorphine Scrn Ur Oxycodone Screen Urine Methadone Screen Urine Fentanyl Screen Ur Barbiturates Screen Ur Phencyclidine Scrn Ur Amphetamines Screen U Benzodiazepines Scrn Urine Cocaine Screen U Marijuana (THC) Screen Ethyl Alcohol Influenza Type A (PCR) NEGATIVE Influenza Type B (PCR) NEGATIVE RSV RNA Qual (PCR) NEGATIVE SARS-CoV-2 RNA (RT-PCR) NEGATIVE Airway Mallampati Class: II TM Dist: >3cm Neck ROM: Full Loose/Missing/Broken Teeth: Yes (Missing some teeth top front and back. Denies broken or loose teeth) Heart: RRR Lungs: CTAB Assessment and Plan Assessment Anesthesia Assessment: Anesthesia Plan Discussed and Chart Reviewed Final Anesthetic Review Family History of Problems with Anesthesia: No History of Problems with Anesthesia: No NPO: No (Bite of cheeseburger about an hour ago) ASA Class: III Final Preanesthetic Review: No Changes in Pt Med Stat, Meds/Allgs Chart Reviewed, Consent Obtained/Reviewed and Anes Risks/Benef Reviewed Patient Risk: Intermediate Procedure Risk: Intermediate Assessment/Block/Sedation in SS: Assess/Block/Sedation-SS Anesthetic Plan Anesthetic Plan: GA Disposition: Standard PACU
--- NOTE | 2024-05-15 13:41 | HO.PSYCHPN ---
Subjective Subjective Date of Service: 05/15/24 Reason For Visit: Schizoaffective Disorder Subjective Notes: Conditional Voluntary Healthcare Proxy: Yes Interim History: The nursing staff reported that he is doing very well, catatonia is nearly resolved. ON intervewi, he was pleasant and cooperative, unfortunately, he had 1 bite of a cheeseburguer before his ECT and it has to be cancelled, he was disappointed. Mental Status Exam Mental Status Exam Patient Appearance: Appropriate Patient Orientation: Person and Situation Level of Consciousness: Awake and Appropriate Patient Behavior: Guarded and Passive Mood Description: Withdrawn Affect Description: Constricted Patient Cognition Impaired: Yes Ability to Follow Directions: Good Speech Pattern: Clear Hallucinations: None Delusions: Not Present Thought Process: Distracted and Slowed Thinking Thought Content: positive for [place] and positive for Poverty of Content Judgement: Fair Diagnostics Vital Signs (24Hr): Vital Signs - 24 hr 05/14/24 20:00 05/14/24 22:38 05/15/24 09:00 Temperature 100.1 F 99.5 F 99.9 F Pulse Rate 100 111 H Respiratory Rate 18 15 Blood Pressure 137/80 113/58 L Pulse Oximetry 100 95 Oxygen Delivery Method Room Air Room Air Oxygen Flow Rate 05/15/24 12:59 Temperature 99.7 F Pulse Rate 101 H Respiratory Rate 18 Blood Pressure 119/75 Pulse Oximetry 95 Oxygen Delivery Method Nasal Cannula Oxygen Flow Rate 2 BMI result Body Mass Index 31.4 Labs 04/24/24 11:58 04/11/24 18:32 Labs: Laboratory Results - last 48 hr 05/13/24 05/14/24 16:16 20:48 POC Glucose 103 Influenza Type A (PCR) NEGATIVE Influenza Type B (PCR) NEGATIVE RSV RNA Qual (PCR) NEGATIVE SARS-CoV-2 RNA (RT-PCR) NEGATIVE Medications Medications Current Medications Acetaminophen (Acetaminophen 325 Mg Tablet) 650 mg PO Q6H PRN PRN Reason: Headache/Pain Mild Scale (1-3) Last Admin: 05/14/24 20:57 Dose: 650 mg Al Hydroxide/Mg Hydroxide (Magnesium Hydrox/Alum Hydrox 30 Ml Oral.Susp) 30 ml PO Q6H PRN PRN Reason: Heartburn/Nausea Clozapine (Clozapine 100 Mg Tablet) 200 mg PO BEDTIME [facility] Last Admin: 05/14/24 20:56 Dose: 200 mg Glycopyrrolate (Glycopyrrolate 1 Mg Tablet) 0.5 mg PO BID [facility] Last Admin: 05/15/24 08:24 Dose: Not Given Hydroxyzine HCl (Hydroxyzine Hcl 25 Mg Tablet) 25 mg PO Q6H PRN PRN Reason: Anxiety Last Admin: 04/26/24 20:11 Dose: 25 mg Lorazepam (Lorazepam 1 Mg Tablet) 2 mg PO TID [facility] Last Admin: 05/15/24 08:25 Dose: Not Given Magnesium Hydroxide (Milk Of Magnesia 30 Ml Oral.Susp) 30 ml PO DAILY PRN PRN Reason: Constipation Last Admin: 05/10/24 10:34 Dose: 30 ml Naloxone HCl (Naloxone Hcl 0.4 Mg/Ml Vial) 0.04 mg IVPUSH Q5M PRN PRN Reason: Excessive sedation or RR < 8 Ondansetron HCl (Ondansetron Odt 4 Mg Tab.Rapdis) 4 mg TRANSLINGU Q8H PRN PRN Reason: Nausea and Vomiting Tamsulosin HCl (Tamsulosin Hcl 0.4 Mg Capsule) 0.4 mg PO BEDTIME [facility] Last Admin: 05/14/24 20:58 Dose: 0.4 mg Trazodone HCl (Trazodone Hcl 50 Mg Tablet) 50 mg PO BEDTIME MRX1 PRN PRN Reason: Insomnia Last Admin: 05/08/24 20:06 Dose: 50 mg Allergies Allergies Allergy/AdvReac Type Severity Reaction Status Date / Time No Known Allergies [NKA] Allergy Unknown NONE Verified 04/11/24 15:35 Assessment & Plan Assessment & Plan (1) Catatonia: Status: Acute Code(s): F06.1 - Catatonic disorder due to known physiological condition (2) Schizoaffective disorder: Status: Acute Code(s): F25.9 - Schizoaffective disorder, unspecified (3) Tardive dyskinesia: Status: Acute Code(s): G24.01 - Drug induced subacute dyskinesia Plan The patient is a 58-year-old male with a history of schizoaffective disorder bipolar type and catatonia who recently relapsed on catatonic symptoms after he missed an ECT. He was previously admitted into this facility a few weeks ago and he was fairly stable with Clozaril, Ativan and ECT. Plan 1. Continue with Clozaril as prescribed. 2. Continue with Ativan 2 mg p.o. t.i.d. for catatonia. 3. ECT had been held for this week. We are going to try to convince his father to have ECT next week. Finally, on May 02 the father agreed to restart ECT 4. Slept study came back within normal limits. 5. Family meeting for May 15 with [facility] staff and his father Reason for continued inpatient stay Substantial Risk for: inability to function, rapid decompensation and med/psych decompensation Time Spent With Patient Time: Total time managing care of this patient today _20___ minutes.
[2024-05-15] MEDS: LORazepam 1 MG TABLET 2 MG PO ×2 (15:33→20:29)
[2024-05-15 20:00] VITALS: BP 121/60; PULSE 99; RESP 16; TEMP 36.9; O2SAT 95
[2024-05-15] MEDS: cloZAPine 100 MG TABLET 200 MG PO (20:29)
[2024-05-15] MEDS: Tamsulosin HCL 0.4 MG CAPSULE PO (20:29)
[2024-05-15] MEDS: Glycopyrrolate 1 MG TABLET 0.5 MG PO (20:30)
[2024-05-16 08:14] VITALS: BP 123/56; PULSE 92; RESP 20; TEMP 36.3; O2SAT 94
[2024-05-16] MEDS: LORazepam 1 MG TABLET 2 MG PO ×3 (08:16→20:48)
[2024-05-16] MEDS: Glycopyrrolate 1 MG TABLET 0.5 MG PO ×2 (08:16→20:48)
--- NOTE | 2024-05-16 16:47 | HO.PSYCHPN ---
Subjective Subjective Date of Service: 05/16/24 Reason For Visit: Schizoaffective Disorder Subjective Notes: Conditional Voluntary Interim History: The nursing staff reported the patient had been cooperative pleasant, slept 8 hours. On interview the patient denies new symptoms, he will have ECT tomorrow. Mental Status Exam Mental Status Exam Patient Appearance: Appropriate Patient Orientation: Person and Situation Level of Consciousness: Awake and Appropriate Patient Behavior: Cooperative and Passive Mood Description: Calm Affect Description: Constricted Patient Cognition Impaired: Yes Ability to Follow Directions: Good Speech Pattern: Clear Hallucinations: None Delusions: Not Present Thought Process: Distracted and Slowed Thinking Thought Content: positive for [place] and positive for Poverty of Content Judgement: Fair Diagnostics Vital Signs (24Hr): Vital Signs - 24 hr 05/15/24 20:00 05/16/24 08:14 Temperature 98.5 F 97.3 F Pulse Rate 99 92 Respiratory Rate 16 20 Blood Pressure 121/60 123/56 L Pulse Oximetry 95 94 Oxygen Delivery Method Room Air Room Air BMI result Body Mass Index 31.4 Labs 04/24/24 11:58 04/11/24 18:32 Labs: Laboratory Results - last 48 hr 05/14/24 20:48 Influenza Type A (PCR) NEGATIVE Influenza Type B (PCR) NEGATIVE RSV RNA Qual (PCR) NEGATIVE SARS-CoV-2 RNA (RT-PCR) NEGATIVE Medications Medications Current Medications Acetaminophen (Acetaminophen 325 Mg Tablet) 650 mg PO Q6H PRN PRN Reason: Headache/Pain Mild Scale (1-3) Last Admin: 05/14/24 20:57 Dose: 650 mg Al Hydroxide/Mg Hydroxide (Magnesium Hydrox/Alum Hydrox 30 Ml Oral.Susp) 30 ml PO Q6H PRN PRN Reason: Heartburn/Nausea Clozapine (Clozapine 100 Mg Tablet) 200 mg PO BEDTIME [facility] Last Admin: 05/15/24 20:29 Dose: 200 mg Glycopyrrolate (Glycopyrrolate 1 Mg Tablet) 0.5 mg PO BID [facility] Last Admin: 05/16/24 08:16 Dose: 0.5 mg Hydroxyzine HCl (Hydroxyzine Hcl 25 Mg Tablet) 25 mg PO Q6H PRN PRN Reason: Anxiety Last Admin: 04/26/24 20:11 Dose: 25 mg Lorazepam (Lorazepam 1 Mg Tablet) 2 mg PO TID [facility] Last Admin: 05/16/24 15:23 Dose: 2 mg Magnesium Hydroxide (Milk Of Magnesia 30 Ml Oral.Susp) 30 ml PO DAILY PRN PRN Reason: Constipation Last Admin: 05/10/24 10:34 Dose: 30 ml Naloxone HCl (Naloxone Hcl 0.4 Mg/Ml Vial) 0.04 mg IVPUSH Q5M PRN PRN Reason: Excessive sedation or RR < 8 Ondansetron HCl (Ondansetron Odt 4 Mg Tab.Rapdis) 4 mg TRANSLINGU Q8H PRN PRN Reason: Nausea and Vomiting Tamsulosin HCl (Tamsulosin Hcl 0.4 Mg Capsule) 0.4 mg PO BEDTIME [facility] Last Admin: 05/15/24 20:29 Dose: 0.4 mg Trazodone HCl (Trazodone Hcl 50 Mg Tablet) 50 mg PO BEDTIME MRX1 PRN PRN Reason: Insomnia Last Admin: 05/08/24 20:06 Dose: 50 mg Allergies Allergies Allergy/AdvReac Type Severity Reaction Status Date / Time No Known Allergies [NKA] Allergy Unknown NONE Verified 04/11/24 15:35 Assessment & Plan Assessment & Plan (1) Catatonia: Status: Acute Code(s): F06.1 - Catatonic disorder due to known physiological condition (2) Schizoaffective disorder: Status: Acute Code(s): F25.9 - Schizoaffective disorder, unspecified (3) Tardive dyskinesia: Status: Acute Code(s): G24.01 - Drug induced subacute dyskinesia Plan The patient is a 58-year-old male with a history of schizoaffective disorder bipolar type and catatonia who recently relapsed on catatonic symptoms after he missed an ECT. He was previously admitted into this facility a few weeks ago and he was fairly stable with Clozaril, Ativan and ECT. Plan 1. Continue with Clozaril as prescribed. 2. Continue with Ativan 2 mg p.o. t.i.d. for catatonia. 3. ECT had been held for this week. We are going to try to convince his father to have ECT next week. Finally, on May 02 the father agreed to restart ECT 4. Slept study came back within normal limits. 5. Family meeting for May 15 with [facility] staff and his father. [facility] staff reported that they can arrange transportation for outpatient ECT. Reason for continued inpatient stay Substantial Risk for: inability to function, rapid decompensation and med/psych decompensation Time Spent With Patient Time: Total time managing care of this patient today __20__ minutes.
[2024-05-16 20:00] VITALS: BP 127/73; PULSE 71; RESP 18; TEMP 36.6; O2SAT 97
[2024-05-16] MEDS: cloZAPine 100 MG TABLET 200 MG PO (20:48)
[2024-05-16] MEDS: Tamsulosin HCL 0.4 MG CAPSULE PO (20:48)
[2024-05-17] VITALS (8 sets, daily range): BP systolic 107–174; BP diastolic 58–90; PULSE 83–93; RESP 16–24; TEMP 36.1–37; O2SAT 93–97
--- NOTE | 2024-05-17 13:23 | HO.ANESPROP2 ---
[facility] Active Problems Active Problems: All Active Problems Catatonia (Acute) Pre-op evaluation (Acute) Tardive dyskinesia (Acute) Schizoaffective disorder (Acute) Nocturnal hypoxia (Acute) Schizoaffective disorder, depressive type (Acute) Benign prostate hyperplasia (Acute) Essential hypertension (Acute) Right hip pain (Acute) Past Medical History Medical History Tardive dyskinesia Mild sleep apnea Nocturnal hypoxia Routine medical exam Joint inflammation of right hand and wrist Status post fall Adult general medical exam Screening for colon cancer Screening for prostate cancer Cough BPH (benign prostatic hyperplasia) Family History Family History Mother Cancer Father Kidney agenesis Family history of problems with anesthesia: No Surgical History Surgical History History of colonoscopy (~06/15/21) History of tooth extraction History of root canal procedure History of Problems with Anesthesia: No Social History Social History Household Members: None Housing: Unknown / Unable to assess Are you a primary care manager to a significant other at home: No Do you presently have visiting nurse or other home services: Yes Unable to assess alcohol history related to: Unable to respond Alcohol intake: former Patient Tobacco Use Status: Never used Tobacco e-Cigarette/Vaping Use: Never Used Second Hand Smoke Exposure: No service: No Current occupational status: employed Sexual orientation: Straight/Heterosexual Cognitive needs: No Hearing needs: No Vision needs: No Meds Allergies Allergy/AdvReac Type Severity Reaction Status Date / Time No Known Allergies [NKA] Allergy Unknown NONE Verified 04/11/24 15:35 Active Medications: Current Medications Acetaminophen (Acetaminophen 325 Mg Tablet) 650 mg PO Q6H PRN PRN Reason: Headache/Pain Mild Scale (1-3) Last Admin: 05/14/24 20:57 Dose: 650 mg Al Hydroxide/Mg Hydroxide (Magnesium Hydrox/Alum Hydrox 30 Ml Oral.Susp) 30 ml PO Q6H PRN PRN Reason: Heartburn/Nausea Clozapine (Clozapine 100 Mg Tablet) 200 mg PO BEDTIME KRISTIN Last Admin: 05/16/24 20:48 Dose: 200 mg Glycopyrrolate (Glycopyrrolate 1 Mg Tablet) 0.5 mg PO BID [facility] Last Admin: 05/17/24 09:14 Dose: Not Given Hydroxyzine HCl (Hydroxyzine Hcl 25 Mg Tablet) 25 mg PO Q6H PRN PRN Reason: Anxiety Last Admin: 04/26/24 20:11 Dose: 25 mg Lorazepam (Lorazepam 1 Mg Tablet) 2 mg PO TID [facility] Last Admin: 05/17/24 09:14 Dose: Not Given Magnesium Hydroxide (Milk Of Magnesia 30 Ml Oral.Susp) 30 ml PO DAILY PRN PRN Reason: Constipation Last Admin: 05/10/24 10:34 Dose: 30 ml Naloxone HCl (Naloxone Hcl 0.4 Mg/Ml Vial) 0.04 mg IVPUSH Q5M PRN PRN Reason: Excessive sedation or RR < 8 Ondansetron HCl (Ondansetron Odt 4 Mg Tab.Rapdis) 4 mg TRANSLINGU Q8H PRN PRN Reason: Nausea and Vomiting Tamsulosin HCl (Tamsulosin Hcl 0.4 Mg Capsule) 0.4 mg PO BEDTIME [facility] Last Admin: 05/16/24 20:48 Dose: 0.4 mg Trazodone HCl (Trazodone Hcl 50 Mg Tablet) 50 mg PO BEDTIME MRX1 PRN PRN Reason: Insomnia Last Admin: 05/08/24 20:06 Dose: 50 mg Home Medications ?Medication ?Instructions ?Recorded ?Confirmed ?Last Taken ?Type benztropine 0.5 mg tablet 0.5 mg PO BID 04/11/24 04/12/24 Unknown History Exam Height,Weight and Vital Signs: Height 5 ft 9 in Weight 96.343 kg Last Vital Signs Temp 97.6 F 05/17/24 08:00 Pulse 83 05/17/24 08:00 Resp 16 05/17/24 08:00 BP 107/58 L 05/17/24 08:00 Pulse Ox 95 05/17/24 08:00 O2 Del Method Room Air 05/17/24 08:00 O2 Flow Rate 2 05/15/24 12:59 Pertinent Lab Results Pertinent Lab Results: Laboratory Tests 04/11/24 04/12/24 04/14/24 18:32 08:04 07:32 WBC 8.5 17.5 H RBC 4.50 L 4.59 L Hgb 12.8 L 13.2 L Hct 39.3 L 40.3 L MCV 87.3 87.8 MCH 28.4 28.8 MCHC 32.6 32.8 RDW 13.4 13.7 Plt Count 224 D 197 MPV 10.4 11.1 Immature Gran % (Auto) 0.9 H 0.6 H Neut % (Auto) 70.9 82.2 H Lymph % (Auto) 21.0 9.2 L [place] % (Auto) 7.1 7.8 Eos % (Auto) 0.0 0.0 Baso % (Auto) 0.1 0.2 Lymph # (Auto) 1.8 1.6 [place] # (Auto) 0.6 1.4 H Eos # (Auto) 0.0 0.0 Baso # (Auto) 0.0 0.0 Abs Immat Gran (auto) 0.08 H 0.11 H Absolute Neuts (auto) 6.1 14.4 H Absolute Nucleated RBC 0.000 0.000 Nucleated RBC % (auto) 0.0 0.0 Smear Tech's Comments Sodium 143 Potassium 4.2 Chloride 110 H Carbon Dioxide 26 Anion Gap 11 L BUN 21 H Creatinine 1.32 Estim Creat Clear Calc 59.5 Estimated GFR 55 POC Glucose Random Glucose 81 Estimat Average Glucose 111 Hemoglobin A1c % 5.5 Calcium 9.1 Magnesium 2.1 Total Bilirubin 0.5 AST 19 ALT 12 Alkaline Phosphatase 56 Total Protein 7.4 Albumin 3.9 Triglycerides 88 Cholesterol 149 LDL Cholesterol, Calc 101 H HDL Cholesterol 31 L Vitamin B12 437 Folate 17.1 TSH 0.36 Free T4 1.35 Urine Color Urine Appearance Urine pH Ur Specific [place] Urine Protein Urine Glucose (UA) Urine Ketones Urine Blood Urine Nitrite Ur Leukocyte Esterase Urine Opiates Screen Ur Buprenorphine Scrn Ur Oxycodone Screen Urine Methadone Screen Urine Fentanyl Screen Ur Barbiturates Screen Ur Phencyclidine Scrn Ur Amphetamines Screen U Benzodiazepines Scrn Urine Cocaine Screen U Marijuana (THC) Screen Ethyl Alcohol < 10 Influenza Type A (PCR) Influenza Type B (PCR) RSV RNA Qual (PCR) SARS-CoV-2 RNA (RT-PCR) 04/14/24 04/21/24 04/22/24 10:02 08:20 12:07 WBC RBC Hgb Hct MCV MCH MCHC RDW Plt Count MPV Immature Gran % (Auto) Neut % (Auto) Lymph % (Auto) [place] % (Auto) Eos % (Auto) Baso % (Auto) Lymph # (Auto) [place] # (Auto) Eos # (Auto) Baso # (Auto) Abs Immat Gran (auto) Absolute Neuts (auto) 4.4 4.3 Absolute Nucleated RBC Nucleated RBC % (auto) Smear Tech's Comments Sodium Potassium Chloride Carbon Dioxide Anion Gap BUN Creatinine Estim Creat Clear Calc Estimated GFR POC Glucose Random Glucose Estimat Average Glucose Hemoglobin A1c % Calcium Magnesium Total Bilirubin AST ALT Alkaline Phosphatase Total Protein Albumin Triglycerides Cholesterol LDL Cholesterol, Calc HDL Cholesterol Vitamin B12 Folate TSH Free T4 Urine Color Yellow Urine Appearance Clear Urine pH 5.5 Ur Specific [place] 1.020 Urine Protein Negative Urine Glucose (UA) Negative Urine Ketones Negative Urine Blood Negative Urine Nitrite Negative Ur Leukocyte Esterase Negative Urine Opiates Screen Not Detected Ur Buprenorphine Scrn Not Detected Ur Oxycodone Screen Not Detected Urine Methadone Screen Not Detected Urine Fentanyl Screen Not Detected Ur Barbiturates Screen Not Detected Ur Phencyclidine Scrn Not Detected Ur Amphetamines Screen Not Detected U Benzodiazepines Scrn Not Detected Urine Cocaine Screen Not Detected U Marijuana (THC) Screen Not Detected Ethyl Alcohol Influenza Type A (PCR) Influenza Type B (PCR) RSV RNA Qual (PCR) SARS-CoV-2 RNA (RT-PCR) 04/24/24 04/28/24 05/05/24 11:58 12:04 08:10 WBC 5.6 RBC 4.24 L Hgb 12.0 L Hct 36.8 L MCV 86.8 MCH 28.3 MCHC 32.6 RDW 13.3 Plt Count 125 L D MPV 11.7 Immature Gran % (Auto) 0.5 H Neut % (Auto) 69.6 Lymph % (Auto) 21.8 [place] % (Auto) 7.7 Eos % (Auto) 0.2 Baso % (Auto) 0.2 Lymph # (Auto) 1.2 [place] # (Auto) 0.4 Eos # (Auto) 0.0 Baso # (Auto) 0.0 Abs Immat Gran (auto) 0.03 Absolute Neuts (auto) 3.9 5.4 3.3 Absolute Nucleated RBC 0.000 Nucleated RBC % (auto) 0.0 Smear Tech's Comments VERIFIED Sodium Potassium Chloride Carbon Dioxide Anion Gap BUN Creatinine Estim Creat Clear Calc Estimated GFR POC Glucose Random Glucose Estimat Average Glucose Hemoglobin A1c % Calcium Magnesium Total Bilirubin AST ALT Alkaline Phosphatase Total Protein Albumin Triglycerides Cholesterol LDL Cholesterol, Calc HDL Cholesterol Vitamin B12 Folate TSH Free T4 Urine Color Urine Appearance Urine pH Ur Specific [place] Urine Protein Urine Glucose (UA) Urine Ketones Urine Blood Urine Nitrite Ur Leukocyte Esterase Urine Opiates Screen Ur Buprenorphine Scrn Ur Oxycodone Screen Urine Methadone Screen Urine Fentanyl Screen Ur Barbiturates Screen Ur Phencyclidine Scrn Ur Amphetamines Screen U Benzodiazepines Scrn Urine Cocaine Screen U Marijuana (THC) Screen Ethyl Alcohol Influenza Type A (PCR) Influenza Type B (PCR) RSV RNA Qual (PCR) SARS-CoV-2 RNA (RT-PCR) 05/12/24 05/13/24 05/14/24 07:41 16:16 20:48 WBC RBC Hgb Hct MCV MCH MCHC RDW Plt Count MPV Immature Gran % (Auto) Neut % (Auto) Lymph % (Auto) [place] % (Auto) Eos % (Auto) Baso % (Auto) Lymph # (Auto) [place] # (Auto) Eos # (Auto) Baso # (Auto) Abs Immat Gran (auto) Absolute Neuts (auto) 3.3 Absolute Nucleated RBC Nucleated RBC % (auto) Smear Tech's Comments Sodium Potassium Chloride Carbon Dioxide Anion Gap BUN Creatinine Estim Creat Clear Calc Estimated GFR POC Glucose 103 Random Glucose Estimat Average Glucose Hemoglobin A1c % Calcium Magnesium Total Bilirubin AST ALT Alkaline Phosphatase Total Protein Albumin Triglycerides Cholesterol LDL Cholesterol, Calc HDL Cholesterol Vitamin B12 Folate TSH Free T4 Urine Color Urine Appearance Urine pH Ur Specific [place] Urine Protein Urine Glucose (UA) Urine Ketones Urine Blood Urine Nitrite Ur Leukocyte Esterase Urine Opiates Screen Ur Buprenorphine Scrn Ur Oxycodone Screen Urine Methadone Screen Urine Fentanyl Screen Ur Barbiturates Screen Ur Phencyclidine Scrn Ur Amphetamines Screen U Benzodiazepines Scrn Urine Cocaine Screen U Marijuana (THC) Screen Ethyl Alcohol Influenza Type A (PCR) NEGATIVE Influenza Type B (PCR) NEGATIVE RSV RNA Qual (PCR) NEGATIVE SARS-CoV-2 RNA (RT-PCR) NEGATIVE Airway Mallampati Class: III TM Dist: >3cm Neck ROM: Full Heart: RRR Lungs: CTA Assessment and Plan Assessment Anesthesia Assessment: Anesthesia Plan Discussed and Chart Reviewed Final Anesthetic Review Family History of Problems with Anesthesia: No History of Problems with Anesthesia: No NPO: Yes ASA Class: II Final Preanesthetic Review: Meds/Allgs Chart Reviewed, Consent Obtained/Reviewed and Anes Risks/Benef Reviewed Patient Risk: Low Procedure Risk: Intermediate Anesthetic Plan Anesthetic Plan: GA Disposition: Standard PACU
--- NOTE | 2024-05-17 14:12 | MHC.SHP ---
Pre-Procedural Eval Section A - 24 Hr Update-Section A only Date of Service: 05/17/24 The patient is an INPATIENT: Yes Changes since office visit: No Cold of Flu in the past 2 weeks, No New Medical Problems, No Changes in Medication and No Patient answered all questions The patient has been examined within 24 hours of the surgical procedure. The History & Physical has been completed within 30 days and I have reviewed it.: Yes Section B - Complete if H&P > 30 days Chief Complaint: Schizoaffective Disorder Allergies: Allergies Allergy/AdvReac Type Severity Reaction Status Date / Time No Known Allergies [NKA] Allergy Unknown NONE Verified 04/11/24 15:35 Plan I have reviewed the history and physical and performed a pertinent physical examination on my patient. No changes have occurred unless specified. Time Spent With Patient Time: Total time managing care of this patient today ____ minutes.
--- NOTE | 2024-05-17 14:33 | HO.ECTPROC ---
ECT Procedure Note Diagnosis/Treatment Date of Service: 05/18/24 Diagnosis: Catatonia Current Treatment Number: 9 Treatment: Series Interval Clinical Notes: pt has missesed 05/15 tx because of food intake . Ect COMPLETED NEXT TX WOULD USE FLUMAZENIL PRE TX PT SLOWED HAS RELAPSED AFTER MISSING 2 ECT CONT TX SERIES Time: Total time managing care of this patient today ____ minutes. ECT Settings Device: THYMATRON DGx Electrode Placement: Bitemporal Program/Pulse Width: 0.50 Energy Percent: 100 Seizure Duration By EEG (in seconds): 17 Medications Administration General Anesthetic: Etomidate (18) Muscle Relaxant: Succinylcholine (100) Ancillary Medications Anti-emetics: Zofran - Pre ECT Airway Management Airway Management: Bag Mask Ventilation Treatment Recommendations No Changes Recommended: No change Pt Tolerated Procedure w/o Issue: Yes
[2024-05-17] MEDS: LORazepam 1 MG TABLET 2 MG PO ×2 (16:01→20:23)
--- NOTE | 2024-05-17 16:41 | P.PNPSI_ITS ---
Subjective Subjective Date of Service: 05/17/24 Reason For Visit: Schizoaffective Disorder Subjective Notes: Conditional Voluntary Interim History: The nursing staff reported the patient had been compliant with treatment, he had ECT today. On interview the patient denies new symptoms Mental Status Exam Mental Status Exam Patient Appearance: Appropriate Patient Orientation: Person and Situation Level of Consciousness: Awake and Appropriate Patient Behavior: Guarded and Passive Mood Description: Withdrawn Affect Description: Constricted Patient Cognition Impaired: Yes Ability to Follow Directions: Good Speech Pattern: Clear Hallucinations: None Delusions: Not Present Thought Process: Distracted Thought Content: positive for [place] and positive for Poverty of Content Judgement: Fair Diagnostics Vital Signs (24Hr): Vital Signs - 24 hr 05/16/24 20:00 05/17/24 08:00 05/17/24 13:24 Temperature 97.8 F 97.6 F 97 F Pulse Rate 71 83 84 Respiratory Rate 18 16 17 Blood Pressure 127/73 107/58 L 127/75 Pulse Oximetry 97 95 97 Oxygen Delivery Method Room Air Room Air Room Air Oxygen Flow Rate 05/17/24 14:33 05/17/24 14:38 05/17/24 14:43 Temperature 98.2 F Pulse Rate 84 93 91 Respiratory Rate 24 H 19 24 H Blood Pressure 174/90 H 144/86 H 146/81 H Pulse Oximetry 93 96 Oxygen Delivery Method Nasal Cannula with ETCO2 Nasal Cannula with ETCO2 Nasal Cannula with ETCO2 Oxygen Flow Rate 2 2 2 05/17/24 14:48 05/17/24 15:03 Temperature 98.6 F Pulse Rate 91 91 Respiratory Rate 19 18 Blood Pressure 145/86 H 140/82 H Pulse Oximetry 96 95 Oxygen Delivery Method Room Air Room Air Oxygen Flow Rate BMI result Body Mass Index 31.4 Labs 04/24/24 11:58 04/11/24 18:32 Medications Medications Current Medications Acetaminophen (Acetaminophen 325 Mg Tablet) 650 mg PO Q6H PRN PRN Reason: Headache/Pain Mild Scale (1-3) Last Admin: 05/14/24 20:57 Dose: 650 mg Al Hydroxide/Mg Hydroxide (Magnesium Hydrox/Alum Hydrox 30 Ml Oral.Susp) 30 ml PO Q6H PRN PRN Reason: Heartburn/Nausea Clozapine (Clozapine 100 Mg Tablet) 200 mg PO BEDTIME [facility] Last Admin: 05/16/24 20:48 Dose: 200 mg Glycopyrrolate (Glycopyrrolate 1 Mg Tablet) 0.5 mg PO BID [facility] Last Admin: 05/17/24 09:14 Dose: Not Given Hydroxyzine HCl (Hydroxyzine Hcl 25 Mg Tablet) 25 mg PO Q6H PRN PRN Reason: Anxiety Last Admin: 04/26/24 20:11 Dose: 25 mg Lorazepam (Lorazepam 1 Mg Tablet) 2 mg PO TID [facility] Last Admin: 05/17/24 16:01 Dose: 2 mg Magnesium Hydroxide (Milk Of Magnesia 30 Ml Oral.Susp) 30 ml PO DAILY PRN PRN Reason: Constipation Last Admin: 05/10/24 10:34 Dose: 30 ml Naloxone HCl (Naloxone Hcl 0.4 Mg/Ml Vial) 0.04 mg IVPUSH Q5M PRN PRN Reason: Excessive sedation or RR < 8 Ondansetron HCl (Ondansetron Odt 4 Mg Tab.Rapdis) 4 mg TRANSLINGU Q8H PRN PRN Reason: Nausea and Vomiting Tamsulosin HCl (Tamsulosin Hcl 0.4 Mg Capsule) 0.4 mg PO BEDTIME [facility] Last Admin: 05/16/24 20:48 Dose: 0.4 mg Trazodone HCl (Trazodone Hcl 50 Mg Tablet) 50 mg PO BEDTIME MRX1 PRN PRN Reason: Insomnia Last Admin: 05/08/24 20:06 Dose: 50 mg Allergies Allergies Allergy/AdvReac Type Severity Reaction Status Date / Time No Known Allergies [NKA] Allergy Unknown NONE Verified 04/11/24 15:35 Assessment & Plan Assessment & Plan (1) Catatonia: Status: Acute Code(s): F06.1 - Catatonic disorder due to known physiological condition (2) Schizoaffective disorder: Status: Acute Code(s): F25.9 - Schizoaffective disorder, unspecified (3) Tardive dyskinesia: Status: Acute Code(s): G24.01 - Drug induced subacute dyskinesia Plan The patient is a 58-year-old male with a history of schizoaffective disorder bipolar type and catatonia who recently relapsed on catatonic symptoms after he missed an ECT. He was previously admitted into this facility a few weeks ago and he was fairly stable with Clozaril, Ativan and ECT. Plan 1. Continue with Clozaril as prescribed. 2. Continue with Ativan 2 mg p.o. t.i.d. for catatonia. 3. ECT had been held for this week. We are going to try to convince his father to have ECT next week. Finally, on May 02 the father agreed to restart ECT 4. Slept study came back within normal limits. 5. Family meeting for May 15 with [facility] staff and his father. [facility] staff reported that they can arrange transportation for outpatient ECT. Reason for continued inpatient stay Substantial Risk for: inability to function, rapid decompensation and med/psych decompensation Time Spent With Patient Time: Total time managing care of this patient today __20__ minutes.
[2024-05-17] MEDS: Glycopyrrolate 1 MG TABLET 0.5 MG PO (20:23)
[2024-05-17] MEDS: Tamsulosin HCL 0.4 MG CAPSULE PO (20:23)
[2024-05-17] MEDS: cloZAPine 100 MG TABLET 200 MG PO (20:23)
[2024-05-18 08:00] VITALS: BP 129/60; PULSE 88; RESP 16; TEMP 36.3; O2SAT 94
[2024-05-18] MEDS: LORazepam 1 MG TABLET 2 MG PO ×3 (09:52→20:09)
[2024-05-18] MEDS: Glycopyrrolate 1 MG TABLET 0.5 MG PO ×2 (09:53→20:08)
--- NOTE | 2024-05-18 12:14 | P.PNPSI_ITS ---
Subjective Subjective Date of Service: 05/18/24 Reason For Visit: Schizoaffective Disorder Interim History: The nursing staff reported the patient had been compliant with treatment. He is looking forward to leaving. He denies any new symptoms. He is sleeping well. Denies SI/HI. Review of Systems Review of Systems Pt has no acute medical complaints at this time Yes all other systems are reviewed and are negative and Unobtainable due to mental status Mental Status Exam Mental Status Exam Narrative: sleeping this a.m. Patient Appearance: Appropriate Patient Orientation: Person and Situation Level of Consciousness: Awake and Appropriate Patient Behavior: Guarded and Passive Mood Description: Withdrawn Affect Description: Constricted Patient Cognition Impaired: Yes Ability to Follow Directions: Good Speech Pattern: Clear Memory Description: Remote Impaired Diagnostics Vital Signs (24Hr): Vital Signs - 24 hr 05/17/24 13:24 05/17/24 14:33 05/17/24 14:38 Temperature 97 F 98.2 F Pulse Rate 84 84 93 Respiratory Rate 17 24 H 19 Blood Pressure 127/75 174/90 H 144/86 H Pulse Oximetry 97 93 Oxygen Delivery Method Room Air Nasal Cannula with ETCO2 Nasal Cannula with ETCO2 Oxygen Flow Rate 2 2 05/17/24 14:43 05/17/24 14:48 05/17/24 15:03 Temperature 98.6 F Pulse Rate 91 91 91 Respiratory Rate 24 H 19 18 Blood Pressure 146/81 H 145/86 H 140/82 H Pulse Oximetry 96 96 95 Oxygen Delivery Method Nasal Cannula with ETCO2 Room Air Room Air Oxygen Flow Rate 2 05/17/24 20:00 Temperature 97.9 F Pulse Rate 84 Respiratory Rate 16 Blood Pressure 130/76 Pulse Oximetry 97 Oxygen Delivery Method Room Air Oxygen Flow Rate BMI result Body Mass Index 31.4 Labs 04/24/24 11:58 04/11/24 18:32 Medications Medications Current Medications Acetaminophen (Acetaminophen 325 Mg Tablet) 650 mg PO Q6H PRN PRN Reason: Headache/Pain Mild Scale (1-3) Last Admin: 05/14/24 20:57 Dose: 650 mg Al Hydroxide/Mg Hydroxide (Magnesium Hydrox/Alum Hydrox 30 Ml Oral.Susp) 30 ml PO Q6H PRN PRN Reason: Heartburn/Nausea Clozapine (Clozapine 100 Mg Tablet) 200 mg PO BEDTIME KRISTIN Last Admin: 05/17/24 20:23 Dose: 200 mg Glycopyrrolate (Glycopyrrolate 1 Mg Tablet) 0.5 mg PO BID [facility] Last Admin: 05/18/24 09:53 Dose: 0.5 mg Hydroxyzine HCl (Hydroxyzine Hcl 25 Mg Tablet) 25 mg PO Q6H PRN PRN Reason: Anxiety Last Admin: 04/26/24 20:11 Dose: 25 mg Lorazepam (Lorazepam 1 Mg Tablet) 2 mg PO TID [facility] Last Admin: 05/18/24 09:52 Dose: 2 mg Magnesium Hydroxide (Milk Of Magnesia 30 Ml Oral.Susp) 30 ml PO DAILY PRN PRN Reason: Constipation Last Admin: 05/10/24 10:34 Dose: 30 ml Naloxone HCl (Naloxone Hcl 0.4 Mg/Ml Vial) 0.04 mg IVPUSH Q5M PRN PRN Reason: Excessive sedation or RR < 8 Ondansetron HCl (Ondansetron Odt 4 Mg Tab.Rapdis) 4 mg TRANSLINGU Q8H PRN PRN Reason: Nausea and Vomiting Tamsulosin HCl (Tamsulosin Hcl 0.4 Mg Capsule) 0.4 mg PO BEDTIME [facility] Last Admin: 05/17/24 20:23 Dose: 0.4 mg Trazodone HCl (Trazodone Hcl 50 Mg Tablet) 50 mg PO BEDTIME MRX1 PRN PRN Reason: Insomnia Last Admin: 05/08/24 20:06 Dose: 50 mg Allergies Allergies Allergy/AdvReac Type Severity Reaction Status Date / Time No Known Allergies [NKA] Allergy Unknown NONE Verified 04/11/24 15:35 Assessment & Plan Assessment & Plan (1) Catatonia: Status: Acute Code(s): F06.1 - Catatonic disorder due to known physiological condition (2) Schizoaffective disorder: Status: Acute Code(s): F25.9 - Schizoaffective disorder, unspecified (3) Tardive dyskinesia: Status: Acute Code(s): G24.01 - Drug induced subacute dyskinesia Plan The patient is a 58-year-old male with a history of schizoaffective disorder bipolar type and catatonia who recently relapsed on catatonic symptoms after he missed an ECT. He was previously admitted into this facility a few weeks ago and he was fairly stable with Clozaril, Ativan and ECT. Plan 1. Continue with Clozaril as prescribed. 2. Continue with Ativan 2 mg p.o. t.i.d. for catatonia. 3. ECT had been held for this week. We are going to try to convince his father to have ECT next week. Finally, on May 02 the father agreed to restart ECT 4. Slept study came back within normal limits. 5. Family meeting for May 15 with [facility] staff and his father. [facility] staff reported that they can arrange transportation for outpatient ECT. 05/18: Continue current management and treatment plan. Reason for continued inpatient stay Substantial Risk for: inability to function and rapid decompensation Time Spent With Patient Time: Total time managing care of this patient today ____ minutes.
[2024-05-18 20:00] VITALS: BP 119/63; PULSE 73; RESP 18; TEMP 36.6; O2SAT 97
[2024-05-18] MEDS: Tamsulosin HCL 0.4 MG CAPSULE PO (20:09)
[2024-05-18] MEDS: cloZAPine 100 MG TABLET 200 MG PO (20:09)
[2024-05-19 08:02] LABS: Neut%MD 46.3 %; Neutrophils Absolute Auto 1.9 x10*3/uL (2.0-8.3); WBCANC 4.2 X10*3/uL
[2024-05-19 08:14] VITALS: BP 130/62; PULSE 72; RESP 20; TEMP 36.6
[2024-05-19] MEDS: Glycopyrrolate 1 MG TABLET 0.5 MG PO ×2 (08:14→20:29)
[2024-05-19] MEDS: LORazepam 1 MG TABLET 2 MG PO ×3 (08:15→20:29)
[2024-05-19 08:17] VITALS: BMI 31.6
--- NOTE | 2024-05-19 11:12 | HO.PSYCHPN ---
Subjective Subjective Date of Service: 05/19/24 Reason For Visit: Schizoaffective Disorder Interim History: The nursing staff reported the patient had been compliant with treatment. He has almost no anxiety or depression and is looking forward to discharge. He denies any new symptoms. He is sleeping well. Denies SI/HI. Review of Systems Review of Systems Pt has no acute medical complaints at this time Yes all other systems are reviewed and are negative and Unobtainable due to mental status Mental Status Exam Mental Status Exam Narrative: sleeping this a.m. Patient Appearance: Appropriate Patient Orientation: Person and Situation Level of Consciousness: Awake and Appropriate Patient Behavior: Guarded and Passive Mood Description: Withdrawn Affect Description: Constricted Patient Cognition Impaired: Yes Ability to Follow Directions: Good Speech Pattern: Clear Memory Description: Remote Impaired Diagnostics Vital Signs (24Hr): Vital Signs - 24 hr 05/18/24 20:00 05/19/24 08:14 Temperature 97.8 F 97.9 F Pulse Rate 73 72 Respiratory Rate 18 20 Blood Pressure 119/63 130/62 Pulse Oximetry 97 Oxygen Delivery Method Room Air Room Air BMI result Body Mass Index 31.6 Labs 04/24/24 11:58 04/11/24 18:32 Labs: Laboratory Results - last 48 hr 05/19/24 07:51 Absolute Neuts (auto) 1.9 L Medications Medications Current Medications Acetaminophen (Acetaminophen 325 Mg Tablet) 650 mg PO Q6H PRN PRN Reason: Headache/Pain Mild Scale (1-3) Last Admin: 05/14/24 20:57 Dose: 650 mg Al Hydroxide/Mg Hydroxide (Magnesium Hydrox/Alum Hydrox 30 Ml Oral.Susp) 30 ml PO Q6H PRN PRN Reason: Heartburn/Nausea Clozapine (Clozapine 100 Mg Tablet) 200 mg PO BEDTIME [facility] Last Admin: 05/18/24 20:09 Dose: 200 mg Glycopyrrolate (Glycopyrrolate 1 Mg Tablet) 0.5 mg PO BID [facility] Last Admin: 05/19/24 08:14 Dose: 0.5 mg Hydroxyzine HCl (Hydroxyzine Hcl 25 Mg Tablet) 25 mg PO Q6H PRN PRN Reason: Anxiety Last Admin: 04/26/24 20:11 Dose: 25 mg Lorazepam (Lorazepam 1 Mg Tablet) 2 mg PO TID [facility] Last Admin: 05/19/24 08:15 Dose: 2 mg Magnesium Hydroxide (Milk Of Magnesia 30 Ml Oral.Susp) 30 ml PO DAILY PRN PRN Reason: Constipation Last Admin: 05/10/24 10:34 Dose: 30 ml Naloxone HCl (Naloxone Hcl 0.4 Mg/Ml Vial) 0.04 mg IVPUSH Q5M PRN PRN Reason: Excessive sedation or RR < 8 Ondansetron HCl (Ondansetron Odt 4 Mg Tab.Rapdis) 4 mg TRANSLINGU Q8H PRN PRN Reason: Nausea and Vomiting Tamsulosin HCl (Tamsulosin Hcl 0.4 Mg Capsule) 0.4 mg PO BEDTIME [facility] Last Admin: 05/18/24 20:09 Dose: 0.4 mg Trazodone HCl (Trazodone Hcl 50 Mg Tablet) 50 mg PO BEDTIME MRX1 PRN PRN Reason: Insomnia Last Admin: 05/08/24 20:06 Dose: 50 mg Allergies Allergies Allergy/AdvReac Type Severity Reaction Status Date / Time No Known Allergies [NKA] Allergy Unknown NONE Verified 04/11/24 15:35 Assessment & Plan Assessment & Plan (1) Catatonia: Status: Acute Code(s): F06.1 - Catatonic disorder due to known physiological condition (2) Schizoaffective disorder: Status: Acute Code(s): F25.9 - Schizoaffective disorder, unspecified (3) Tardive dyskinesia: Status: Acute Code(s): G24.01 - Drug induced subacute dyskinesia Plan The patient is a 58-year-old male with a history of schizoaffective disorder bipolar type and catatonia who recently relapsed on catatonic symptoms after he missed an ECT. He was previously admitted into this facility a few weeks ago and he was fairly stable with Clozaril, Ativan and ECT. Plan 1. Continue with Clozaril as prescribed. 2. Continue with Ativan 2 mg p.o. t.i.d. for catatonia. 3. ECT had been held for this week. We are going to try to convince his father to have ECT next week. Finally, on May 02 the father agreed to restart ECT 4. Slept study came back within normal limits. 5. Family meeting for May 15 with [facility] staff and his father. [facility] staff reported that they can arrange transportation for outpatient ECT. 05/18: Continue current management and treatment plan. 05/19: continue current management and treatment plan. Reason for continued inpatient stay Substantial Risk for: inability to function, rapid decompensation and med/psych decompensation Time Spent With Patient Time: Total time managing care of this patient today ____ minutes.
[2024-05-19 20:00] VITALS: BP 143/69; PULSE 83; RESP 18; TEMP 36.4; O2SAT 96
[2024-05-19] MEDS: cloZAPine 100 MG TABLET 200 MG PO (20:29)
[2024-05-19] MEDS: Tamsulosin HCL 0.4 MG CAPSULE PO (20:29)
[2024-05-20] VITALS (9 sets, daily range): BP systolic 125–168; BP diastolic 57–98; PULSE 80–98; RESP 16–24; TEMP 36.2–36.9; O2SAT 93–99
--- NOTE | 2024-05-20 06:55 | P.CONAN_ITS ---
[facility] Active Problems Active Problems: All Active Problems Catatonia (Acute) Pre-op evaluation (Acute) Tardive dyskinesia (Acute) Schizoaffective disorder (Acute) Nocturnal hypoxia (Acute) Schizoaffective disorder, depressive type (Acute) Benign prostate hyperplasia (Acute) Essential hypertension (Acute) Right hip pain (Acute) Past Medical History Medical History Tardive dyskinesia Mild sleep apnea Nocturnal hypoxia Routine medical exam Joint inflammation of right hand and wrist Status post fall Adult general medical exam Screening for colon cancer Screening for prostate cancer Cough BPH (benign prostatic hyperplasia) Family History Family History Mother Cancer Father Kidney agenesis Family history of problems with anesthesia: No Surgical History Surgical History History of colonoscopy (~06/15/21) History of tooth extraction History of root canal procedure History of Problems with Anesthesia: No Social History Social History Household Members: None Housing: Unknown / Unable to assess Are you a primary career placement services counselor to a significant other at home: No Do you presently have visiting nurse or other home services: Yes Unable to assess alcohol history related to: Unable to respond Alcohol intake: former Patient Tobacco Use Status: Never used Tobacco e-Cigarette/Vaping Use: Never Used Second Hand Smoke Exposure: No service: No Current occupational status: employed Sexual orientation: Straight/Heterosexual Cognitive needs: No Hearing needs: No Vision needs: No Meds Allergies Allergy/AdvReac Type Severity Reaction Status Date / Time No Known Allergies [NKA] Allergy Unknown NONE Verified 04/11/24 15:35 Active Medications: Current Medications Acetaminophen (Acetaminophen 325 Mg Tablet) 650 mg PO Q6H PRN PRN Reason: Headache/Pain Mild Scale (1-3) Last Admin: 05/14/24 20:57 Dose: 650 mg Al Hydroxide/Mg Hydroxide (Magnesium Hydrox/Alum Hydrox 30 Ml Oral.Susp) 30 ml PO Q6H PRN PRN Reason: Heartburn/Nausea Clozapine (Clozapine 100 Mg Tablet) 200 mg PO BEDTIME [facility] Last Admin: 05/19/24 20:29 Dose: 200 mg Glycopyrrolate (Glycopyrrolate 1 Mg Tablet) 0.5 mg PO BID [facility] Last Admin: 05/19/24 20:29 Dose: 0.5 mg Hydroxyzine HCl (Hydroxyzine Hcl 25 Mg Tablet) 25 mg PO Q6H PRN PRN Reason: Anxiety Last Admin: 04/26/24 20:11 Dose: 25 mg Lactated Ringer's (Lr) 1,000 mls @ 50 mls/hr IVCONT .Q20H [facility] Lorazepam (Lorazepam 1 Mg Tablet) 2 mg PO TID [facility] Last Admin: 05/19/24 20:29 Dose: 2 mg Magnesium Hydroxide (Milk Of Magnesia 30 Ml Oral.Susp) 30 ml PO DAILY PRN PRN Reason: Constipation Last Admin: 05/10/24 10:34 Dose: 30 ml Naloxone HCl (Naloxone Hcl 0.4 Mg/Ml Vial) 0.04 mg IVPUSH Q5M PRN PRN Reason: Excessive sedation or RR < 8 Naloxone HCl (Naloxone Hcl 0.4 Mg/Ml Vial) 0.04 mg IVPUSH Q5M PRN PRN Reason: Excessive sedation or RR < 8 Ondansetron HCl (Ondansetron Odt 4 Mg Tab.Rapdis) 4 mg TRANSLINGU Q8H PRN PRN Reason: Nausea and Vomiting Tamsulosin HCl (Tamsulosin Hcl 0.4 Mg Capsule) 0.4 mg PO BEDTIME [facility] Last Admin: 05/19/24 20:29 Dose: 0.4 mg Trazodone HCl (Trazodone Hcl 50 Mg Tablet) 50 mg PO BEDTIME MRX1 PRN PRN Reason: Insomnia Last Admin: 05/08/24 20:06 Dose: 50 mg Home Medications ?Medication ?Instructions ?Recorded ?Confirmed ?Last Taken ?Type benztropine 0.5 mg tablet 0.5 mg PO BID 04/11/24 04/12/24 Unknown History Exam Height,Weight and Vital Signs: Height 5 ft 9 in Weight 97.069 kg Last Vital Signs Temp 97.6 F 05/19/24 20:00 Pulse 83 05/19/24 20:00 Resp 18 05/19/24 20:00 BP 143/69 H 05/19/24 20:00 Pulse Ox 96 05/19/24 20:00 O2 Del Method Room Air 05/19/24 20:00 O2 Flow Rate 2 05/17/24 14:43 Pertinent Lab Results Pertinent Lab Results: Laboratory Tests 04/11/24 04/12/24 04/14/24 18:32 08:04 07:32 WBC 8.5 17.5 H RBC 4.50 L 4.59 L Hgb 12.8 L 13.2 L Hct 39.3 L 40.3 L MCV 87.3 87.8 MCH 28.4 28.8 MCHC 32.6 32.8 RDW 13.4 13.7 Plt Count 224 D 197 MPV 10.4 11.1 Immature Gran % (Auto) 0.9 H 0.6 H Neut % (Auto) 70.9 82.2 H Lymph % (Auto) 21.0 9.2 L [place] % (Auto) 7.1 7.8 Eos % (Auto) 0.0 0.0 Baso % (Auto) 0.1 0.2 Lymph # (Auto) 1.8 1.6 [place] # (Auto) 0.6 1.4 H Eos # (Auto) 0.0 0.0 Baso # (Auto) 0.0 0.0 Abs Immat Gran (auto) 0.08 H 0.11 H Absolute Neuts (auto) 6.1 14.4 H Absolute Nucleated RBC 0.000 0.000 Nucleated RBC % (auto) 0.0 0.0 Smear Tech's Comments Sodium 143 Potassium 4.2 Chloride 110 H Carbon Dioxide 26 Anion Gap 11 L BUN 21 H Creatinine 1.32 Estim Creat Clear Calc 59.5 Estimated GFR 55 POC Glucose Random Glucose 81 Estimat Average Glucose 111 Hemoglobin A1c % 5.5 Calcium 9.1 Magnesium 2.1 Total Bilirubin 0.5 AST 19 ALT 12 Alkaline Phosphatase 56 Total Protein 7.4 Albumin 3.9 Triglycerides 88 Cholesterol 149 LDL Cholesterol, Calc 101 H HDL Cholesterol 31 L Vitamin B12 437 Folate 17.1 TSH 0.36 Free T4 1.35 Urine Color Urine Appearance Urine pH Ur Specific [place] Urine Protein Urine Glucose (UA) Urine Ketones Urine Blood Urine Nitrite Ur Leukocyte Esterase Urine Opiates Screen Ur Buprenorphine Scrn Ur Oxycodone Screen Urine Methadone Screen Urine Fentanyl Screen Ur Barbiturates Screen Ur Phencyclidine Scrn Ur Amphetamines Screen U Benzodiazepines Scrn Urine Cocaine Screen U Marijuana (THC) Screen Ethyl Alcohol < 10 Influenza Type A (PCR) Influenza Type B (PCR) RSV RNA Qual (PCR) SARS-CoV-2 RNA (RT-PCR) 04/14/24 04/21/24 04/22/24 10:02 08:20 12:07 WBC RBC Hgb Hct MCV MCH MCHC RDW Plt Count MPV Immature Gran % (Auto) Neut % (Auto) Lymph % (Auto) [place] % (Auto) Eos % (Auto) Baso % (Auto) Lymph # (Auto) [place] # (Auto) Eos # (Auto) Baso # (Auto) Abs Immat Gran (auto) Absolute Neuts (auto) 4.4 4.3 Absolute Nucleated RBC Nucleated RBC % (auto) Smear Tech's Comments Sodium Potassium Chloride Carbon Dioxide Anion Gap BUN Creatinine Estim Creat Clear Calc Estimated GFR POC Glucose Random Glucose Estimat Average Glucose Hemoglobin A1c % Calcium Magnesium Total Bilirubin AST ALT Alkaline Phosphatase Total Protein Albumin Triglycerides Cholesterol LDL Cholesterol, Calc HDL Cholesterol Vitamin B12 Folate TSH Free T4 Urine Color Yellow Urine Appearance Clear Urine pH 5.5 Ur Specific [place] 1.020 Urine Protein Negative Urine Glucose (UA) Negative Urine Ketones Negative Urine Blood Negative Urine Nitrite Negative Ur Leukocyte Esterase Negative Urine Opiates Screen Not Detected Ur Buprenorphine Scrn Not Detected Ur Oxycodone Screen Not Detected Urine Methadone Screen Not Detected Urine Fentanyl Screen Not Detected Ur Barbiturates Screen Not Detected Ur Phencyclidine Scrn Not Detected Ur Amphetamines Screen Not Detected U Benzodiazepines Scrn Not Detected Urine Cocaine Screen Not Detected U Marijuana (THC) Screen Not Detected Ethyl Alcohol Influenza Type A (PCR) Influenza Type B (PCR) RSV RNA Qual (PCR) SARS-CoV-2 RNA (RT-PCR) 04/24/24 04/28/24 05/05/24 11:58 12:04 08:10 WBC 5.6 RBC 4.24 L Hgb 12.0 L Hct 36.8 L MCV 86.8 MCH 28.3 MCHC 32.6 RDW 13.3 Plt Count 125 L D MPV 11.7 Immature Gran % (Auto) 0.5 H Neut % (Auto) 69.6 Lymph % (Auto) 21.8 [place] % (Auto) 7.7 Eos % (Auto) 0.2 Baso % (Auto) 0.2 Lymph # (Auto) 1.2 [place] # (Auto) 0.4 Eos # (Auto) 0.0 Baso # (Auto) 0.0 Abs Immat Gran (auto) 0.03 Absolute Neuts (auto) 3.9 5.4 3.3 Absolute Nucleated RBC 0.000 Nucleated RBC % (auto) 0.0 Smear Tech's Comments VERIFIED Sodium Potassium Chloride Carbon Dioxide Anion Gap BUN Creatinine Estim Creat Clear Calc Estimated GFR POC Glucose Random Glucose Estimat Average Glucose Hemoglobin A1c % Calcium Magnesium Total Bilirubin AST ALT Alkaline Phosphatase Total Protein Albumin Triglycerides Cholesterol LDL Cholesterol, Calc HDL Cholesterol Vitamin B12 Folate TSH Free T4 Urine Color Urine Appearance Urine pH Ur Specific [place] Urine Protein Urine Glucose (UA) Urine Ketones Urine Blood Urine Nitrite Ur Leukocyte Esterase Urine Opiates Screen Ur Buprenorphine Scrn Ur Oxycodone Screen Urine Methadone Screen Urine Fentanyl Screen Ur Barbiturates Screen Ur Phencyclidine Scrn Ur Amphetamines Screen U Benzodiazepines Scrn Urine Cocaine Screen U Marijuana (THC) Screen Ethyl Alcohol Influenza Type A (PCR) Influenza Type B (PCR) RSV RNA Qual (PCR) SARS-CoV-2 RNA (RT-PCR) 05/12/24 05/13/24 05/14/24 07:41 16:16 20:48 WBC RBC Hgb Hct MCV MCH MCHC RDW Plt Count MPV Immature Gran % (Auto) Neut % (Auto) Lymph % (Auto) [place] % (Auto) Eos % (Auto) Baso % (Auto) Lymph # (Auto) [place] # (Auto) Eos # (Auto) Baso # (Auto) Abs Immat Gran (auto) Absolute Neuts (auto) 3.3 Absolute Nucleated RBC Nucleated RBC % (auto) Smear Tech's Comments Sodium Potassium Chloride Carbon Dioxide Anion Gap BUN Creatinine Estim Creat Clear Calc Estimated GFR POC Glucose 103 Random Glucose Estimat Average Glucose Hemoglobin A1c % Calcium Magnesium Total Bilirubin AST ALT Alkaline Phosphatase Total Protein Albumin Triglycerides Cholesterol LDL Cholesterol, Calc HDL Cholesterol Vitamin B12 Folate TSH Free T4 Urine Color Urine Appearance Urine pH Ur Specific [place] Urine Protein Urine Glucose (UA) Urine Ketones Urine Blood Urine Nitrite Ur Leukocyte Esterase Urine Opiates Screen Ur Buprenorphine Scrn Ur Oxycodone Screen Urine Methadone Screen Urine Fentanyl Screen Ur Barbiturates Screen Ur Phencyclidine Scrn Ur Amphetamines Screen U Benzodiazepines Scrn Urine Cocaine Screen U Marijuana (THC) Screen Ethyl Alcohol Influenza Type A (PCR) NEGATIVE Influenza Type B (PCR) NEGATIVE RSV RNA Qual (PCR) NEGATIVE SARS-CoV-2 RNA (RT-PCR) NEGATIVE 05/19/24 07:51 WBC RBC Hgb Hct MCV MCH MCHC RDW Plt Count MPV Immature Gran % (Auto) Neut % (Auto) Lymph % (Auto) [place] % (Auto) Eos % (Auto) Baso % (Auto) Lymph # (Auto) [place] # (Auto) Eos # (Auto) Baso # (Auto) Abs Immat Gran (auto) Absolute Neuts (auto) 1.9 L Absolute Nucleated RBC Nucleated RBC % (auto) Smear Tech's Comments Sodium Potassium Chloride Carbon Dioxide Anion Gap BUN Creatinine Estim Creat Clear Calc Estimated GFR POC Glucose Random Glucose Estimat Average Glucose Hemoglobin A1c % Calcium Magnesium Total Bilirubin AST ALT Alkaline Phosphatase Total Protein Albumin Triglycerides Cholesterol LDL Cholesterol, Calc HDL Cholesterol Vitamin B12 Folate TSH Free T4 Urine Color Urine Appearance Urine pH Ur Specific [place] Urine Protein Urine Glucose (UA) Urine Ketones Urine Blood Urine Nitrite Ur Leukocyte Esterase Urine Opiates Screen Ur Buprenorphine Scrn Ur Oxycodone Screen Urine Methadone Screen Urine Fentanyl Screen Ur Barbiturates Screen Ur Phencyclidine Scrn Ur Amphetamines Screen U Benzodiazepines Scrn Urine Cocaine Screen U Marijuana (THC) Screen Ethyl Alcohol Influenza Type A (PCR) Influenza Type B (PCR) RSV RNA Qual (PCR) SARS-CoV-2 RNA (RT-PCR) Airway Mallampati Class: II TM Dist: >3cm Neck ROM: Full Heart: rrr Lungs: cta Assessment and Plan Assessment Anesthesia Assessment: Anesthesia Plan Discussed and Chart Reviewed Final Anesthetic Review Family History of Problems with Anesthesia: No History of Problems with Anesthesia: No NPO: Yes ASA Class: III Final Preanesthetic Review: No Changes in Pt Med Stat, Meds/Allgs Chart Reviewed and Consent Obtained/Reviewed Patient Risk: Intermediate Procedure Risk: Intermediate Anesthetic Plan Anesthetic Plan: GA Disposition: Standard PACU
[2024-05-20] MEDS: Lactated Ringers 1,000 ML 50 ML IVCONT (07:03)
--- NOTE | 2024-05-20 07:04 | MHC.SHP ---
Pre-Procedural Eval Section A - 24 Hr Update-Section A only Date of Service: 05/20/24 The patient is an INPATIENT: Yes Changes since office visit: No Cold of Flu in the past 2 weeks, No New Medical Problems, No Changes in Medication and No Patient answered all questions The patient has been examined within 24 hours of the surgical procedure. The History & Physical has been completed within 30 days and I have reviewed it.: Yes Section B - Complete if H&P > 30 days Chief Complaint: Schizoaffective Disorder Allergies: Allergies Allergy/AdvReac Type Severity Reaction Status Date / Time No Known Allergies [NKA] Allergy Unknown NONE Verified 04/11/24 15:35 Plan I have reviewed the history and physical and performed a pertinent physical examination on my patient. No changes have occurred unless specified. Time Spent With Patient Time: Total time managing care of this patient today ____ minutes.
--- NOTE | 2024-05-20 07:57 | HO.ECTPROC ---
ECT Procedure Note Diagnosis/Treatment Date of Service: 05/20/24 Diagnosis: Schizoaffective Disorder Previous ECT Date: 05/10/24 Current Treatment Number: 10 Treatment: Series Interval Clinical Notes: The patient's catatonia resolved, he is much better. No side effects with the previous ECT. ECT done as usual, short seizure but therapeutic Time: Total time managing care of this patient today _30___ minutes. ECT Settings Device: THYMATRON DGx Electrode Placement: Bitemporal Program/Pulse Width: 0.50 Energy Percent: 100 Seizure Duration By EEG (in seconds): 24 By Motor Observation (in seconds): 12 Medications Administration General Anesthetic: Etomidate (18) Muscle Relaxant: Succinylcholine (100) Ancillary Medications Anti-emetics: Zofran - Pre ECT Airway Management Airway Management: Bag Mask Ventilation Treatment Recommendations No Changes Recommended: No change Pt Tolerated Procedure w/o Issue: Yes
--- NOTE | 2024-05-20 09:29 | PC.NURSE ---
Patient presents as increasingly tired/fatigued after his ECT treatment this morning. Unable to keep pt awake enough to take morning medications and pt requests to just be left alone to sleep . Provider Dr. Beauchamp notified via tiger text and approved of meds being held for this morning.
--- NOTE | 2024-05-20 09:50 | P.PNPSI_ITS ---
Subjective Subjective Date of Service: 05/20/24 Reason For Visit: Schizoaffective Disorder Subjective Notes: Conditional Voluntary Interim History: The nursing staff reported the patient had been pleasant, cooperative compliant with treatment no evidence of catatonia. Today he had a ECT and after the procedure he was sleepy. On interview the patient reports that he is feeling much better excited to be discharged tomorrow. Mental Status Exam Mental Status Exam Patient Appearance: Appropriate Patient Orientation: Person and Situation Level of Consciousness: Awake and Appropriate Patient Behavior: Guarded and Passive Mood Description: Withdrawn Affect Description: Constricted Patient Cognition Impaired: Yes Ability to Follow Directions: Good Speech Pattern: Clear Hallucinations: None Delusions: Not Present Thought Process: Distracted and Slowed Thinking Thought Content: positive for [place] and positive for Poverty of Content Judgement: Fair Diagnostics Vital Signs (24Hr): Vital Signs - 24 hr 05/19/24 20:00 05/20/24 06:54 05/20/24 08:06 Temperature 97.6 F 97.1 F 97.4 F Pulse Rate 83 82 80 Respiratory Rate 18 16 24 H Blood Pressure 143/69 H 133/85 163/94 H Pulse Oximetry 96 94 99 Oxygen Delivery Method Room Air Room Air Nasal Cannula with ETCO2 Oxygen Flow Rate 2 05/20/24 08:11 05/20/24 08:16 05/20/24 08:21 Temperature Pulse Rate 98 98 98 Respiratory Rate 21 H 22 H 21 H Blood Pressure 168/98 H 167/96 H 161/95 H Pulse Oximetry 95 94 94 Oxygen Delivery Method Nasal Cannula with ETCO2 Nasal Cannula with ETCO2 Nasal Cannula with ETCO2 Oxygen Flow Rate 2 2 2 05/20/24 08:36 05/20/24 08:54 05/20/24 09:20 Temperature 97.5 F 98.1 F Pulse Rate 96 95 86 Respiratory Rate 21 H 20 17 Blood Pressure 160/95 H 147/87 H 143/67 H Pulse Oximetry 94 94 93 Oxygen Delivery Method Room Air Room Air Room Air Oxygen Flow Rate BMI result Body Mass Index 31.6 Labs 04/24/24 11:58 04/11/24 18:32 Labs: Laboratory Results - last 48 hr 05/19/24 07:51 Absolute Neuts (auto) 1.9 L Medications Medications Current Medications Acetaminophen (Acetaminophen 325 Mg Tablet) 650 mg PO Q6H PRN PRN Reason: Headache/Pain Mild Scale (1-3) Last Admin: 02/18/25 20:57 Dose: 650 mg Al Hydroxide/Mg Hydroxide (Magnesium Hydrox/Alum Hydrox 30 Ml Oral.Susp) 30 ml PO Q6H PRN PRN Reason: Heartburn/Nausea Clozapine (Clozapine 100 Mg Tablet) 200 mg PO BEDTIME [facility] Last Admin: 05/19/24 20:29 Dose: 200 mg Glycopyrrolate (Glycopyrrolate 1 Mg Tablet) 0.5 mg PO BID [facility] Last Admin: 05/20/24 09:29 Dose: Not Given Hydroxyzine HCl (Hydroxyzine Hcl 25 Mg Tablet) 25 mg PO Q6H PRN PRN Reason: Anxiety Last Admin: 04/26/24 20:11 Dose: 25 mg Lorazepam (Lorazepam 1 Mg Tablet) 2 mg PO TID [facility] Last Admin: 05/20/24 09:29 Dose: Not Given Magnesium Hydroxide (Milk Of Magnesia 30 Ml Oral.Susp) 30 ml PO DAILY PRN PRN Reason: Constipation Last Admin: 05/10/24 10:34 Dose: 30 ml Ondansetron HCl (Ondansetron Odt 4 Mg Tab.Rapdis) 4 mg TRANSLINGU Q8H PRN PRN Reason: Nausea and Vomiting Tamsulosin HCl (Tamsulosin Hcl 0.4 Mg Capsule) 0.4 mg PO BEDTIME [facility] Last Admin: 05/19/24 20:29 Dose: 0.4 mg Trazodone HCl (Trazodone Hcl 50 Mg Tablet) 50 mg PO BEDTIME MRX1 PRN PRN Reason: Insomnia Last Admin: 05/08/24 20:06 Dose: 50 mg Allergies Allergies Allergy/AdvReac Type Severity Reaction Status Date / Time No Known Allergies [NKA] Allergy Unknown NONE Verified 04/11/24 15:35 Assessment & Plan Assessment & Plan (1) Catatonia: Status: Acute Code(s): F06.1 - Catatonic disorder due to known physiological condition (2) Schizoaffective disorder: Status: Acute Code(s): F25.9 - Schizoaffective disorder, unspecified (3) Tardive dyskinesia: Status: Acute Code(s): G24.01 - Drug induced subacute dyskinesia Plan The patient is a 58-year-old male with a history of schizoaffective disorder bipolar type and catatonia who recently relapsed on catatonic symptoms after he missed an ECT. He was previously admitted into this facility a few weeks ago and he was fairly stable with Clozaril, Ativan and ECT. Plan 1. Continue with Clozaril as prescribed. 2. Continue with Ativan 2 mg p.o. t.i.d. for catatonia. We are lovwering to 1 mg po bid on 05/20 3. ECT had been held for this week. We are going to try to convince his father to have ECT next week. Finally, on May 02 the father agreed to restart ECT 4. Slept study came back within normal limits. 5. Family meeting for May 15 with [facility] staff and his father. [facility] staff reported that they can arrange transportation for outpatient ECT. 6. D/C tomorrow Reason for continued inpatient stay Substantial Risk for: inability to function, rapid decompensation and med/psych decompensation Time Spent With Patient Time: Total time managing care of this patient today _20___ minutes.
[2024-05-20] MEDS: LORazepam 1 MG TABLET PO ×2 (15:42→20:09)
[2024-05-20] MEDS: Glycopyrrolate 1 MG TABLET 0.5 MG PO (20:07)
[2024-05-20] MEDS: cloZAPine 100 MG TABLET 200 MG PO (20:07)
[2024-05-20] MEDS: Tamsulosin HCL 0.4 MG CAPSULE PO (20:09)
[2024-05-21 08:00] VITALS: BP 128/66; PULSE 81; RESP 18; TEMP 36.4; O2SAT 96
[2024-05-21] MEDS: Glycopyrrolate 1 MG TABLET 0.5 MG PO (08:30)
[2024-05-21] MEDS: LORazepam 1 MG TABLET PO (08:30)
--- NOTE | 2024-05-21 09:50 | PM.PSYDC ---
DS: Providers Provider Date of Service: 05/21/24 Date of admission: 04/11/24 21:37 Date of discharge: 05/21/24 Primary care physician: Maggi Physician Attending physician on discharge: Poncho Beauchamp DS: Diagnosis Discharge Diagnosis (1) Catatonia: Status: Acute (2) Schizoaffective disorder: Status: Acute (3) Tardive dyskinesia: Status: Acute DS: Medications Discharge Medications Home Medications: Home Medications ?Medication ?Instructions ?Recorded ?Confirmed benztropine 0.5 mg tablet 0.5 mg PO BID 04/11/24 04/12/24 Previous Rx's ?Medication ?Instructions ?Recorded clonazepam 0.5 mg tablet 0.5 mg PO BEDTIME #10 tabs 03/14/24 glycopyrrolate 1 mg tablet 0.5 mg (1/2 x 1 mg) PO BID #30 tabs 03/14/24 tamsulosin 0.4 mg capsule 0.4 mg PO BEDTIME #30 caps 03/14/24 clozapine 100 mg tablet 200 mg (2 x 100 mg) PO BEDTIME 30 05/21/24 days #60 tabs glycopyrrolate 1 mg tablet 0.5 mg (1/2 x 1 mg) PO BID 30 days 05/21/24 #30 tabs lorazepam 1 mg tablet 1 mg PO TID 30 days #90 tabs 05/21/24 tamsulosin 0.4 mg capsule 0.4 mg PO BEDTIME 30 days #30 caps 05/21/24 Mental Status Exam Mental Status Exam Patient Appearance: Well Grooomed and Appropriate Patient Orientation: Person and Situation Level of Consciousness: Awake and Appropriate Patient Behavior: Appropriate and Cooperative Mood Description: Calm Affect Description: Constricted Patient Cognition Impaired: Yes Ability to Follow Directions: Good Speech Pattern: Clear Hallucinations: None Delusions: Not Present Thought Process: Distracted and Slowed Thinking Thought Content: positive for Shubuta and positive for Poverty of Content Judgement: Fair Data Data Completed and Pending Completed studies during hospitalization [Text1]: 05/14/24 05/19/24 20:48 07:51 Absolute Neuts (auto) 1.9 L Influenza Type A (PCR) NEGATIVE Influenza Type B (PCR) NEGATIVE RSV RNA Qual (PCR) NEGATIVE SARS-CoV-2 RNA (RT-PCR) NEGATIVE DS: Summary Hospital Course Hospital Course: The patient is a 58-year-old male with a history of schizoaffective disorder with previous episodes of catatonia, very well known by the team since he was admitted before a few weeks before the present admission. On the last admission the patient was discharged with clozapine 200 mg p.o. q.h.s. and outpatient ECT that he could not attend. He decompensate and became catatonic. He was seen by his regular team and transferring to this facility since he relapsed on catatonia. Please see the HPI of the admission notes for further information. On admission, the patient had signs and symptoms of catatonia even though he was able to eat. The patient has an affirmed healthcare proxy, his father, who was very reluctant to start ECT and try 1st medications. He did not improve with high dose of Ativan 2 mg p.o. 4 times a day. He was restarted finally on ECT and after 1 week of treatment, he improved very mildly but his father refused to continue ECT. Since there were no improvement we had a family meeting and he agreed to restarted. The patient improved remarkably, he is catatonia resolved on session 7. The patient was able to participate in groups, he had a brighter affect future oriented. We had a family meeting and [facility] case managing services will help him to continue ECT as an outpatient. Since there were no safety concerns discharge planning was discussed. Time spent discussing smoking cessation with patient: 3 to 10 minutes Status at Discharge Cognitive/behavioral status at discharge: Impaired mildly at baseline Functional status at discharge: independent ambulation Overall status at discharge: patient is back to baseline Time Spent with Patient Time attestation: Total time managing care of this patient today __30__ minutes. Time spent: Less than 30 minutes Discharge Plan Discharge Anticipated Discharge Date/Time: 05/21/24 11:00 Patient Disposition: Home, Self-Care Discharge Diagnosis: Schizoaffective disorder Catatonia resolved. Referrals: [facility] [Other] - 05/21/24 (Your ACCS services and outreach will resume at time of discharge. Your [facility]S outreach team will be providing transportation to outpatient ECT. ) [facility] [Other] - 05/21/24 (Your [facility] will retsart on 05/21/24 in the evening for twice a day for medication management. ) Geovanna De La Torre [facility] [Other] - 06/21/24 11:00 am (Appointment is in person at the office in [place] ) [facility] [Other] - 05/27/24 6:00 am (You are scheduled for outpatient ECT starting 05/27/24. The following are the dates for ECT: 05/27/24, 06/04/23, 06/10/24, and 06/17/24. Please arrive to ECT at 6am on these days. Your [facility] outreach providers will provide transportation. ) Therapist: Wanda Alcantara ([facility]) [Other] - 05/23/24 11:00 am (Appointment is in person at the office in [place] ) Home Care Referral: [facility] ([facility]) [Other] - 2 Weeks (Referral made on 05/16 for homemaking services and home-delivered meals; will take one to two weeks to process referral and EC will contact Sandra on the ACCS team. Please call the week of 05/27 to check in on status of referral. ) Jonn Smith MD [Physician] - 05/23/24 2:30 pm (Your next PCP appointment is scheduled for 05/23/24 at 2:30PM with ALEC Potter. ) Discharge Medications: New glycopyrrolate 1 mg Tablet 0.5 mg PO BID 30 Days Qty: 30 0RF clozapine 100 mg Tablet 200 mg PO BEDTIME 30 Days Qty: 60 0RF tamsulosin 0.4 mg Capsule 0.4 mg PO BEDTIME 30 Days Qty: 30 0RF lorazepam 1 mg Tablet 1 mg PO TID 30 Days Qty: 90 0RF Discontinued glycopyrrolate 1 mg Tablet 0.5 mg PO BID Qty: 30 0RF tamsulosin 0.4 mg Capsule 0.4 mg PO BEDTIME Qty: 30 0RF benztropine 0.5 mg tablet 0.5 mg PO BID clonazepam 0.5 mg tablet 0.5 mg PO BEDTIME Qty: 10 0RF Rx Instructions: administer 30 minutes before bedtime Discharge Orders: Discharge Order (Routine); Ordered 05/21/24 Ordered By: Poncho Beauchamp Diet: Advance to usual diet Activity on Discharge: As tolerated Stand Alone Forms: Patient Portal Discharge page Print Language: Kinyarwanda Care Plan Goals: Care plan goals achieved in this admission Health Concerns: Continue treatment with primary care physician and outpatient providers. Plan of Treatment: Continue with outpatient ECT. Continue with [facility] case managing. Continue with medication management as an outpatient. Assessment: The patient is a 58-year-old male with a past history of schizoaffective disorder with catatonia who relapsed after missing ECT as an outpatient. He was restarted on ECT with for improvement, at baseline no sign sore symptoms of safety concerns.
== END 2024-05-21 11:35 | disposition home or self-care (01) | DRG 885 ==
LOC: HO.ED 17:41 → HO.PADLT16 21:47 → HO.PGERI 04-12 13:48
PROVIDERS: Psychiatry & Neurology Psychiatry; Admitting Provider Clinical Nurse Specialist Psychiatric/Mental Health, Adult; Emergency Provider Emergency Medicine; Visit Provider Psychiatry & Neurology Psychiatry
PROC: GZB4ZZZ Other Electroconvulsive Therapy (ICD-10-PCS; CPT 90870; principal; 2024-04-15 07:30)
DX: F25.9 Schizoaffective disorder, unspecified (principal); F06.1 Catatonic disorder due to known physiological condition; G24.01 Drug induced subacute dyskinesia; Z20.822 Contact with and (suspected) exposure to COVID-19; Z79.899 Other long term (current) drug therapy
CPT/HCPCS: 0241U; 36415; 80053; 80061; 80307; 81003; 82607; 82746; 82947; 83036; 83735; 84439; 84443; 85025; 85048; 90870; 93005; 95806; 99285; J0330; J1596; J1805; J2060; J2405; J2704; J7120; S9485

== ENCOUNTER → 2024-04-11 20:26 | Outpatient (BNV) | payer MEDICARE, MEDICAID, SELFPAY | PROVIDERS: Admitting Provider Clinical Nurse Specialist Psychiatric/Mental Health, Adult; Emergency Provider Emergency Medicine; Visit Provider Internal Medicine Cardiovascular Disease | DX: R94.31 Abnormal electrocardiogram [ECG] [EKG] (principal) | CPT/HCPCS: 93010 ==

== ENCOUNTER → 2024-04-11 21:37 | Outpatient (BNV) | payer MEDICARE, MEDICAID, SELFPAY | PROVIDERS: Admitting Provider Clinical Nurse Specialist Psychiatric/Mental Health, Adult; Emergency Provider Emergency Medicine; Visit Provider Student in an Organized Health Care Education/Training Program | DX: R94.31 Abnormal electrocardiogram [ECG] [EKG] (principal) | CPT/HCPCS: 99222 ==

== ENCOUNTER → 2024-04-11 21:37 | Outpatient (BNV) | payer MEDICARE, MEDICAID, SELFPAY | PROVIDERS: Admitting Provider Clinical Nurse Specialist Psychiatric/Mental Health, Adult; Emergency Provider Emergency Medicine; Visit Provider Psychiatry & Neurology Psychiatry | DX: F25.0 Schizoaffective disorder, bipolar type (principal); F06.1 Catatonic disorder due to known physiological condition | CPT/HCPCS: 90870 ==

== ENCOUNTER → 2024-04-11 21:37 | Outpatient (BNV) | payer MEDICARE, MEDICAID, SELFPAY | PROVIDERS: Admitting Provider Clinical Nurse Specialist Psychiatric/Mental Health, Adult; Emergency Provider Emergency Medicine; Visit Provider Psychiatry & Neurology Psychiatry | DX: F06.1 Catatonic disorder due to known physiological condition (principal); F25.9 Schizoaffective disorder, unspecified; G24.01 Drug induced subacute dyskinesia | CPT/HCPCS: 90792; 90870; 99231; 99232 ==

== ENCOUNTER 2024-05-23 14:31 | Outpatient (AMB) | payer MEDICARE, MEDICAID, SELFPAY ==
--- NOTE | 2024-05-23 14:39 | A.OFFPC_ITS ---
Vital Signs 05/23/24 14:41 Height 5 ft 10 in Weight 213 lb BMI 30.6 BP 124/80 Blood Pressure Location Lt brachial Position Sitting Pulse 95 Pulse Source Pulse Oximeter Temp 97.7 F Temp Source Temporal Artery Scan Pulse Oximetry (%) 96 Oxygen Delivery Method Room Air Intake Visit Reasons: [facility] 05/16 psych Intake Note: Patient is here for hospital discharge follow up. Patient was discharged from [facility] on 05/16/24. Prescriptionist Required: No Apparel Stock Checker: Not Required per policy Accompanied by: Self / Same As Patient Allergies No Known Allergies [NKA] Allergy (Unknown, Verified 05/23/24 14:52) NONE Medication List - Last Reconciled 05/23/24 by Mirtha Jaramillo PA-C clozapine 200 mg (2 x 100 mg) PO BEDTIME 30 days glycopyrrolate 0.5 mg (1/2 x 1 mg) PO BID 30 days lorazepam 1 mg PO TID 30 days tamsulosin 0.4 mg PO BEDTIME 30 days Tobacco use date assessed: 05/23/24 Dental Screening Dental Screen Date: 05/23/24 Did you have a dental visit in the last 12 months?: No Did you have a dental problem in the last 6 months where you did not have access to dental care?: No Was dental information given to patient?: No [facility] Medical History (Updated 05/23/24 @ 15:05 by Mirtha Jaramillo PA-C) Hospital discharge follow-up Mild sleep apnea Tardive dyskinesia Nocturnal hypoxia Routine medical exam Joint inflammation of right hand and wrist Status post fall Adult general medical exam Screening for colon cancer Screening for prostate cancer Cough BPH (benign prostatic hyperplasia) Surgical History History of colonoscopy (~06/15/21) History of tooth extraction History of root canal procedure Family History Mother Cancer Father Kidney agenesis Social History Household Members: None Housing: Unknown / Unable to assess Are you a primary clinical manager home care to a significant other at home: No Do you presently have visiting nurse or other home services: Yes Unable to assess alcohol history related to: Unable to respond Alcohol intake: former Patient Tobacco Use Status: Never used Tobacco e-Cigarette/Vaping Use: Never Used Second Hand Smoke Exposure: No service: No Current occupational status: employed Sexual orientation: Straight/Heterosexual Cognitive needs: No Hearing needs: No Vision needs: No Questionnaire PHQ-9 Over the last 2 weeks, how often have you been bothered by any of the following problems? 1. Little interest or pleasure in doing things: not at all 2. Feeling down, depressed, or hopeless: not at all 3. Trouble falling or staying asleep, or sleeping too much: not at all 4. Feeling tired or having little energy: not at all 5. Poor appetite or overeating: not at all 6. Feeling bad about yourself - or that you are a failure or have let yourself or your family down: not at all 7. Trouble concentrating on things, such as reading the newspaper or watching television: not at all 8. Moving or speaking so slowly that other people could have noticed. Or the opposite - being so fidgety or restless that you have been moving around a lot more than usual: not at all 9. Thoughts that you would be better off or of hurting yourself in some way: not at all Total score: 0 Depression Screening Interpretation: Negative Depression Screening Done: Yes 34937 - PHQ-9 Billing: Yes Source: Developed by Drs. Jacob Bates, Farrah Scott, Jose Martin Powell and colleagues, with an educational brigid from [employer]. Thrive Questionnaire Date Thrive assessed: 04/12/24 Are you currently unemployed and looking for a job?: No AUDIT C Alcohol Use Questionnaire (AUDIT-C) 1. How often do you have a drink containing alcohol?: Never Total Score: 0 Score Reviewed/Action Taken: Yes JONAH-7 AMB Questionnaire JONAH-7 Date JONAH - 7 assessed: 05/23/24 Feeling nervous, anxious, or on edge: 0 = Not at all Not being able to stop or control worryin = Not at all Worrying too much about different things: 0 = Not at all Trouble relaxin = Not at all Being so restless that it is hard to sit still: 0 = Not at all Becoming easily annoyed or irritable: 0 = Not at all Feeling afraid as if something awful might happen: 0 = Not at all Total JONAH-7 score (0-4 normal; 5-9 mild; 10-14 moderate; 15-21 severe): 0 Source: Developed by Drs. Jacob Bates, Farrah Scott, Jose Martin Powell and colleagues, with an educational brigid from [employer]. JONAH-7 Assessment Billing JONAH-7 Assessment Tool: JONAH-7 Assessment 43316 Physical exam (Primary Care) Vital Signs: Last Vital Signs Temp 97.7 F 05/23/24 14:41 Pulse 95 05/23/24 14:41 BP 124/80 05/23/24 14:41 Pulse Ox 96 05/23/24 14:41 Oxygen Delivery Method Room Air 05/23/24 14:41 Care Plan Goal for BP management: 130/80 BMI result Body Mass Index 30.6 BMI Assessment/Plan discussion: High BMI High, discussed plan: lifestyle, weight reduction, dietary, physical activity and alcohol moderation Tobacco/Smoking Status: Tobacco use Status Tobacco use date assessed 05/23/24 05/23/24 14:45 Patient Tobacco Use Status Never used Tobacco 05/23/24 14:45 e-Cigarette/Vaping Use Never Used 05/23/24 14:45 PHQ-9: PHQ-9 Score PHQ-9: Total score 0 05/23/24 14:45 Depression Screening Interpretation: Negative Thrive Assessment: Date of Thrive Assessment Date Thrive assessed 04/12/24 05/23/24 14:45 Coding Level of Care Code Est Pt Level 4 (83357) Complex EM visit Add On G2211 Diagnoses 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 Tardive dyskinesia G24.01 Schizoaffective disorder F25.9 Schizoaffective disorder, depressive type F25.1 Essential hypertension I10 Benign prostatic hyperplasia, unspecified whether lower urinary tract symptoms present N40.0 Lower urinary tract symptom presence: unspecified whether lower urinary tract symptoms present Mild sleep apnea G47.30 Hospital discharge follow-up Z09 Additional Codes PHQ-9 - 29341 - PHQ-9 Billing: Yes ([id number]) JONAH-7 Assessment Billing - JONAH-7 Assessment Tool: JONAH-7 Assessment 87745 ([id number]) Assessment & Plan Assessment & Plan (1) Catatonia: Code(s): F06.1 - Catatonic disorder due to known physiological condition Category: Medical Plan: Restart ECT therapy May as scheduled. Continue Clozapine 200 mf PO at bedtime. Comtinue glycopyrrolate 0.5mg PO BID. Continue Ativan 1 mg TID. Condition is chronic and stable continue to monitor. (2) Tardive dyskinesia: Code(s): G24.01 - Drug induced subacute dyskinesia Category: Medical Plan: Restart ECT therapy May as scheduled. Continue Clozapine 200 mf PO at bedtime. Comtinue glycopyrrolate 0.5mg PO BID. Continue Ativan 1 mg TID. Condition is chronic and stable continue to monitor. (3) Schizoaffective disorder: Code(s): F25.9 - Schizoaffective disorder, unspecified Category: Medical Plan: Restart ECT therapy May as scheduled. Continue Clozapine 200 mf PO at bedtime. Comtinue glycopyrrolate 0.5mg PO BID. Continue Ativan 1 mg TID. Condition is chronic and stable continue to monitor. (4) Schizoaffective disorder, depressive type: Code(s): F25.1 - Schizoaffective disorder, depressive type Category: Medical Plan: Restart ECT therapy May as scheduled. Continue Clozapine 200 mf PO at bedtime. Comtinue glycopyrrolate 0.5mg PO BID. Continue Ativan 1 mg TID. Condition is chronic and stable continue to monitor. (5) Essential hypertension: Code(s): I10 - Essential (primary) hypertension Category: Medical Plan: Condition is chronic and stable will continue to monitor. (6) Benign prostate hyperplasia: Code(s): N40.0 - Benign prostatic hyperplasia without lower urinary tract symptoms Category: Medical Qualifiers: Lower urinary tract symptom presence: unspecified whether lower urinary tract symptoms present Qualified Code(s): N40.0 - Benign prostatic hyperplasia without lower urinary tract symptoms Plan: Continue tamsulosin 0.4mg bedtime. Condition is chronic and stable will continue to monitor. (7) Mild sleep apnea: Code(s): G47.30 - Sleep apnea, unspecified Category: Medical Plan: Condition is chronic and stable will continue to monitor. (8) Hospital discharge follow-up: Code(s): Z09 - Encounter for follow-up examination after completed treatment for conditions other than malignant neoplasm Category: Medical Plan Plan Continued ECT therapy is scheduled to recommence under [facility] supervision to maintain patient stability following psychiatric admission. Patient will persist with current pharmacotherapy, including glycopyrrolate and clozapine, alongside cessation of clonazepam. A follow-up with the primary care physician is arranged for May 30 for further assessment. Current safety measures and medication supervision protocols to remain. Plans for enhancing lifestyle or modifying treatment are deferred, with emphasis placed on consistent adherence to existing protocols. Patient Instructions: Patient Instructions - Continue taking all medications as prescribed. - Restart ECT therapy starting May. - Attend the follow-up appointment with the primary care physician on May 30. - Maintain routine independent living activities, noting any changes to your health. - Seek immediate care if experiencing any new or worsening symptoms. - Ensure medication compliance, with supervision continuing as arranged. Scribe Plan - Not visible on output: History of Present Illness The patient is a 58-year-old male presenting with a discharge follow-up for psychiatric admission. The admission was due to acute episodes of catatonia linked to schizoaffective disorder, with a background history of tardive dyskinesia. His condition deteriorated post-discharge from an earlier admission owing to missed outpatient ECT sessions. Initial pharmacological management included high doses of lorazepam, albeit without significant improvement. Subsequently, ECT was restarted following consensus with the patient's father, resulting in tangible improvements after seven sessions. The patient was discharged with the intent to continue ECT therapy and appropriate outpatient medication management. His medication regimen includes glycopyrrolate and clozapine, among others, with some alterations post- discharge. Currently, the patient appears stabilized with resolved catatonia but continues experiencing chronic right arm tremors. Case management and safety protocols have been established to facilitate outpatient care sustainably. Social History - The patient lives independently. - Assists in daily activities without a personal lines underwriter ([employer]). - Medication administration is supervised twice daily by an external provider. - Denies use of drugs or alcohol. Review of Systems - Neurological: Denies visual hallucinations and auditory hallucinations. - Gastrointestinal: Reports being able to eat adequately. Physical Exam Appearance: Alert. Oriented X3. No acute distress. Head: Normal external exam. Normocephalic. Atraumatic. Eyes: Pupils are equal, round, and reactive to light. Extraocular movements intact. Conjunctiva and sclera normal. Eyelids normal. Ears: External auditory canal normal. Tympanic membranes normal. Throat: Pharynx normal. Uvula midline. Moist mucous membranes. Neck: Normal inspection. Neck supple. Full range of motion. No adenopathy. Thyroid Normal. No meningeal signs. No neck mass noted. Cardiovascular: Normal heart rate and rhythm. Heart sound normal. No murmurs noted. Pulses normal throughout. Respiratory: No respiratory distress. Painless inspiration. Breath sounds normal. No wheezes/rales/rhonchi noted. Chest nontender. No accessory muscle usage noted or decreased air movement noted. Abdomen: Soft and nontender. Bowel sounds normal in all 4 quadrants. No distention noted. No organomegaly noted. No visible injury noted. Back: No costovertebral angle tenderness. Full range of motion noted. Skin: Skin warm and dry. Normal skin color. Normal skin turgor. No rashes/lesions/lacerations noted. Extremities: No lower extremity edema. Extremities exhibit normal range of motion. Extremities nontender. Neuro: Oriented X 3. No motor deficit. No sensory deficit. Reflexes normal. Noted tremor in the right arm. Psych: Normal affect. Normal judgment. No evidence of SI or HI or any auditory visualizations. No signs of catatonia at this time. Patient was informed and verbally consented to the use of an ambient scribe for clinic note documentation during this visit. Discussion Notes I discussed with the patient the plan to continue ECT therapy starting May 27 and the importance of maintaining his current medication regimen. We reviewed his father?s role as a healthcare proxy and ensured agreement to proceed with ECT, given observed significant progress. We noted the absence of major concerns regarding his current regimen or lifestyle changes. Recommendations for follow- up with his primary care physician on May 30 were made to review overall management. The patient was advised on maintaining medication compliance and engaging proactively with support services managing daily health needs.
[2024-05-23 14:41] VITALS: BP 124/80; PULSE 95; TEMP 36.5; O2SAT 96; BMI 30.6
--- OUTSIDE RECORDS SUMMARY | 2024-05-23 17:45 | XMS_ITS | Patient Health Record ---
Author Organization [facility] Behzad Mckeon Address [address] [place] [address] Care Team Providers Care Armored Cable Machine Operator Name Role Phone SarahJonn Primary Care Provider [phone] Deanna Baron Unavailable [phone] Main Nino Unavailable [phone] Allergies No Known Allergies Reason For Referral [...] as needed Orally Once a day Active [place] Carbonate 600 MG 1 capsule at be [...] Polyneuropathy due to type 2 diabetes mellitus (861373140) Type 2 diabetes mellitus with diabetic polyneuropathy (E11.42) Active confirmed Vital Signs Blood pressure diastolic 80 mm Hg 12/26/2023 Height 5ft 10in in 12/26/2023 Blood pressure systolic 120 mm Hg 12/26/2023 Weight 227 lbs 12/26/2023 BMI 32.57 kg/m2 12/26/2023 Procedures Procedure Date Ordered Date Performed Result Body Sit e 90057-AZNXIPI NAIL, 6 OR MORE 12/26/2023 N/A Encounters Encounter Location Date Provider Diagnosis [facility] [address] 12/26/2023 Deanna Baron Tinea unguium B35.1 and Type 2 diabetes mellitus with diabetic polyneuropathy E11.[address] [facility] [address] 09/06/[address] [address] 03/28/2024 Deanna Baron Assessments Encounter Date Diagnosis (ICD Code) Assessment Notes Treatment Notes Treatment Clinical Notes Section Notes 12/26/2023 Tinea unguium (ICD-10 - B35.1) 12/26/2023 Type 2 diabetes mellitus with diabetic polyneuropathy (ICD-10 - E11.42) Plan Of Treatment Pending Test Test Name Order Date X ray : Foot, right 3V 10/17/2018 60283-BKHWSXR NAIL, 6 OR MORE 12/26/2023 46232-FHGI SKIN LESIONS, OVER 4 04/07/19 22 93741-NBGN SKIN LESIONS, OVER 4 01/31/20 19 33353-GMKO SKIN LESIONS, OVER 4 06/05/19 20 44985-DREA SKIN LESIONS, OVER 4 07/31/19 19 76065-EGHK SKIN LESIONS, OVER 4 10/18/19 19 36931-KLCC SKIN LESIONS, OVER 4 09/18/19 20 62362-EPPK SKIN LESIONS, OVER 4 12/16/19 20 44385-FSKA SKIN LESIONS, OVER 4 04/08/19 61787-VGRN SKIN LESIONS, OVER 4 08/06/19 60349-VOYF SKIN LESIONS, OVER 4 12/17/19 21 Y3128-SNHOIPVH DYSTROPHIC NAILS ANY # U4952-DAOTDVUQ DYSTROPHIC NAILS ANY # T8333-AAKMMBTY DYSTROPHIC NAILS ANY # Z8195-VRQCURAM DYSTROPHIC NAILS ANY # Z2146-YBFEWSBO DYSTROPHIC NAILS ANY # G6247-ULHWSRVH DYSTROPHIC NAILS ANY # Q0388-ZHMXPJRT DYSTROPHIC NAILS ANY # Insurance Providers Payer Name Payer Address Payer Phone Subscriber Number Group Number Insured Name Patient Relationship to Insured Coverage Start Date Coverage End Date Aetna Medicare Open [address] [place] [address] [id number] Benjamin Tenorio Self - patient is the insured Medical (General) History Medical History History ICD Code Depression type II diabetes Surgical History Surgery Date(Month/Year) colonoscopy 06/19/21 Hospitalization History Reason Date(Month/Year) CLX-Plsvvoddny-HW visit 12/2018
--- OUTSIDE RECORDS SUMMARY | 2024-05-23 17:45 | XMS_ITS ---
Author Organization [facility] Behzad jonah Mike Address [address] [facility] [place] [address] Care Team Providers Care Neuropsychiatric Aide Name Role Phone Jonn Smith Primary Care Provider [phone] Deanna Baron Unavailable [phone] Allergies No Known Allergies REASON FOR VISIT [...] Active Flomax Active Abilify Active clonazePAM Active [place] Carbonate 600 MG 1 capsule at be [...] Ordered Date Performed Result Body Sit e 56048-AVIJXPR NAIL, 6 OR MORE 12/26/2023 N/A Encounters Encounter Location Date Provider Diagnosis [facility] [address] [place] [address] 12/26/2023 Deanna Baron Tinea unguium B35.1 and Type 2 diabetes mellitus with diabetic polyneuropathy E11.42 Assessments Encounter Date Diagnosis (ICD Code) Assessment Notes Treatment Notes Treatment Clinical Notes Section Notes 12/26/2023 Tinea unguium (ICD-10 - B35.1) 12/26/2023 Type 2 diabetes mellitus with diabetic polyneuropathy (ICD-10 - E11.42) Plan Of Treatment Pending Test Test Name Order Date 12262-TIPKMXK NAIL, 6 OR MORE 12/26/2023 Next Appt [...] use of a nail nipper and/or dremel-type coffee grinder, to a more viable healthy nail plate or bed tissue 6-10. Silver nitrate used for any petechial bleeding as necessary. Definitive antifungal treatment options have been reviewed and discussed with the patient. The patient chooses, no pharmaceutical tx - 15655 Progress Notes * Benjamin ALVAREZ PDOB:1965 (58 yo M)Acc No.[id number]:12/26/2023 Progress Note Patient:?Benjamin Alvarez Provider:?Deanna Baron DPM :1965???Age:58 Y???Sex:Male Wilver e:12/26/2023 Address:[address] [place] [address] [address], [facility] Pcp:Jonn Smith Subjective: * Chief Complaints: * [...] History:?colonoscop y 06/19/21 * Hospitalization/Major Diagno stic Procedure:?LHA-Ebtjncszds-EJ visit 12/2018 * Family History:?Mother: alethea canales.?Father: [...] ?Exercise: yes, walking. ?Marital status: single. 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 * Medications:?TakingAbilify c lonazePAM Ciclopirox Olamine 0.77 % Cream 1 application to affected area Externally Twice a day to effected areas on feetFlomax [place] Carbonate 600 MG Capsule 1 capsule at [...] to effected areas on feetTaking Flomax Taking [place] Carbonate 600 MG Capsule 1 capsule at [...] use of a nail nipper and/or dremel-type coffee grinder, to a more viable healthy nail plate or bed tissue 6-10. Silver nitrate used for any petechial bleeding as necessary. Definitive antifungal treatment options have been reviewed and discussed with the patient. The patient chooses, no pharmaceutical tx - 92892.? * Procedure Codes:?14337 DEBRI DE NAIL, 6 OR MORE, Modifiers: XS * Follow Up:?prn * Images: * Sign off status: Completed true * Provider:?Deanna Baron DPM Date:?1 Generated for Senia velásquez/Mary/eTransmitting on:?05/23/2024 05:45 PM EST History and Physical Notes * [...]
--- OUTSIDE RECORDS SUMMARY | 2024-05-23 17:46 | XMS_ITS ---
Author Organization [facility] Address [address] [place] [address] Care Team Providers Care Dredge Mate Name Role Phone Jonn Smith Primary Care Provider Deanna Baron [phone] Medications Medication SIG (Take, Route, Frequency, Duration) [...] as needed Orally Once a day Active [place] Carbonate 600 MG 1 capsule at be dtime Orally Once a day for 30 day(s) Active clonazePAM Active Custom Orthotics as directed A ctive Abilify Active Physical Therapy . . . 2-3x/week for 3- 4 weeks Active Night Splint AFO - L1930 as directed Active Tamsulosin HCl Activ e Zoloft 100 mg Oral Active Encounters Encounter Location Date Provider Diagnosis [facility] [address] [place] [address] 03/28/2024 Deanna Baron Plan Of Treatment No Information Progress Notes * ANTONIOBill Restrepoer PDOB:1965 (58 yo M)Acc No.[id number]:03/28/2024 Progress Note Patient:?Benjamin ALVAREZ Provider:?Deanna Baron DPM :1965???Age:58 Y???Sex:Male Wilver e:03/28/2024 Address:[address] [place] [address], [facility] Pcp:Jonn Smith Subjective: * Chief Complaints: * ??? * Medical History:? * Medications:?Taking Abilify , Taking clonazePAM , Taking Ciclopirox Olamine 0.77 % Cream 1 application to affected area Externally Twice a day to effected areas on feet , Taking Flomax , Taking [place] Carbonate 600 MG Capsule 1 capsule at [...] DPM Date:?0 03/28/2024 Generated for Senia velásquez/Mary/Marcelo on:?05/23/2024 05:45 PM EST
--- OUTSIDE RECORDS SUMMARY | 2024-05-23 17:46 | XMS_ITS ---
Author Organization [facility] Address [address] [place] [address] Care Team Providers Care Kitchen Mechanic Name Role Phone BREN RHOADES Primary Care Provider Reym Groves Jr Unavailable Encounters Encounter Location Date Provider Diagnosis [facility] [address] [place] [address] 04/25/2023 Remy Rodriguez Jr PLAN OF TREATMENT No Information
--- OUTSIDE RECORDS SUMMARY | 2024-05-23 17:46 | XMS_ITS | Patient Health Record ---
Author Organization [facility] Address [address] [place] [address] Care Team Providers Care Mobile Practice Lead Name Role Phone BREN RHOADES Primary Care [...] the procedure for 1 day 05/19/2021 Active [place] Carbonate 300 MG Oral for 30 Active [...] Problem Colon cancer screening (Z12.11) Active confirmed 203296241 Problem senior living (current) use of oral hypoglycemic drugs (Z79.84) Active confirmed [id number] PLAN OF TREATMENT Future Test Test Name Order Date COLONOSCOPY 05/19/2021 Insurance Providers Payer Name Payer Address Payer Phone Subscriber Number Group Number Insured Name Patient Relationship to Insured Coverage Start Date Coverage End Date MEDICARE OF [place] [address] [place]BITT [id number] MULUGETA ALVAREZ Self - patient is the insured MEDICAID OF [facility] [address] [place] [phone] [id number] MULUGETA ALVAREZ Self - patient is the insured MEDICAL (GENERAL) HISTORY Medical History History ICD Code diabetes mellitus hypertension schizophrenia BPH Surgical History Surgery Date(Month/Year)
--- OUTSIDE RECORDS SUMMARY | 2024-05-23 17:46 | XMS_ITS ---
Author Organization [facility] Address [address] [place] [address] Care Team Providers Care Integration Technician Name Role Phone Jonn Smith Primary Care Provider Deanna Baron [phone] REASON FOR VISIT No Show Encounters Encounter Location Date Provider Diagnosis [facility] [address] [place] [address] 03/28/2024 Deanna Baron Plan Of Treatment No Information Progress Notes * ANTONIOBill Restrepoer PDOB:1965 (58 yo M)Acc No.[id number]:03/28/2024 Patient:?Benjamin ALVAREZ Gill :1965???Age:58 Y???Sex:Male Address:[address] [place] [address], [place], [address] * true * Date:? Generated for Printi christen/Mary/eTransmitting on:?05/23/2024 05:45 PM EST
== END 2024-05-23 15:01 | disposition home or self-care (01) ==
PROVIDERS: PCP Internal Medicine; Visit Provider Physician Assistant Medical
DX: F06.1 Catatonic disorder due to known physiological condition (principal); G24.01 Drug induced subacute dyskinesia; F25.9 Schizoaffective disorder, unspecified; F25.1 Schizoaffective disorder, depressive type; I10 Essential (primary) hypertension; N40.0 Benign prostatic hyperplasia without lower urinary tract symptoms; G47.30 Sleep apnea, unspecified; Z09 Encounter for follow-up examination after completed treatment for conditions other than malignant neoplasm

== ENCOUNTER → 2024-05-23 14:31 | Outpatient (BNVA) | payer MEDICARE, MEDICAID, SELFPAY | PROVIDERS: PCP Internal Medicine; Visit Provider Physician Assistant Medical | DX: F06.1 Catatonic disorder due to known physiological condition (principal); G24.01 Drug induced subacute dyskinesia; F25.9 Schizoaffective disorder, unspecified; F25.1 Schizoaffective disorder, depressive type; I10 Essential (primary) hypertension; N40.0 Benign prostatic hyperplasia without lower urinary tract symptoms | CPT/HCPCS: 96127; 99212 ==

== ENCOUNTER 2024-05-27 05:58 | Day surgery (SDC) | payer MEDICARE, MEDICAID, SELFPAY ==
--- OUTSIDE RECORDS SUMMARY | 2024-05-20 17:02 | XMS_ITS ---
Author Organization [facility] Address [address] [place] [address] Care Team Providers Care Psychologist Research Assistant Name Role Phone Jonn Smith Primary Care Provider Deanna Baron [phone] Medications Medication SIG (Take, Route, Frequency, Duration) Notes Start Date End Date Status Flomax Active Ciclopirox Olamine 0.77 % 1 application to affected area Externally Twice a day to effected areas on feet for 30 days Active metFORMIN HCl 500 MG 1 tablet with a anat l Orally Once a day for 30 day(s) Active LORazepam 2 MG 1 tablet at bedtime as needed Orally Once a day Active [place] Carbonate 600 MG 1 capsule at be dtime Orally Once a day for 30 day(s) Active clonazePAM Active Custom Orthotics as directed A ctive Abilify Active Physical Therapy . . . 2-3x/week for 3- 4 weeks Active Night Splint AFO - L1930 as directed Active Tamsulosin HCl Activ e Zoloft 100 mg Oral Active Encounters Encounter Location Date Provider Diagnosis [facility] [address] [place] [address] 03/28/2024 Deanna Baron Plan Of Treatment No Information Progress Notes * ANTONIOBill Restrepoer PDOB:1965 (58 yo M)Acc No.[id number]:03/28/2024 Progress Note Patient:?Benjamin ALVAREZ Provider:?Deanna Baron DPM :1965???Age:58 Y???Sex:Male Wilver e:03/28/2024 Address:[address] [place] [address], [facility] Pcp:Jonn Smith Subjective: * Chief Complaints: * ??? * Medical History:? * Medications:?Taking Abilify , Taking clonazePAM , Taking Ciclopirox Olamine 0.77 % Cream 1 application to affected area Externally Twice a day to effected areas on feet , Taking Flomax , Taking [place] Carbonate 600 MG Capsule 1 capsule at [...] Taking Custom Orthotics as directed Objective: * Vitals:? Assessment: Plan: * Treatment: * Images: * The named appointment provid er may or may not be the originator of this progress note, and it is not deemed complete until electronically signed by the appointment provider. Sign off status: Pending * Provider:?Deanna Baron DPM Date:?0 03/28/2024 Generated for Senia velásquez/Mary/Marcelo on:?05/20/2024 05:01 PM EST
--- OUTSIDE RECORDS SUMMARY | 2024-05-20 17:02 | XMS_ITS ---
Author Organization [facility] Behzad jonah Mike Address [address] [facility] [place] [address] Care Team Providers Care Systems Administration Analyst Name Role Phone Jonn Smith Primary Care Provider Deanna Baron Unavailable [phone] Allergies No Known Allergies REASON FOR VISIT [...] Active Flomax Active Abilify Active clonazePAM Active [place] Carbonate 600 MG 1 capsule at be [...] Ordered Date Performed Result Body Sit e 76470-QAWJVSX NAIL, 6 OR MORE 12/26/2023 N/A Encounters Encounter Location Date Provider Diagnosis [facility] [place] [address] [place] [address] 12/26/2023 Deanna Baron Tinea unguium B35.1 and Type 2 diabetes mellitus with diabetic polyneuropathy E11.42 Assessments Encounter Date Diagnosis (ICD Code) Assessment Notes Treatment Notes Treatment Clinical Notes Section Notes 12/26/2023 Tinea unguium (ICD-10 - B35.1) 12/26/2023 Type 2 diabetes mellitus with diabetic polyneuropathy (ICD-10 - E11.42) Plan Of Treatment Pending Test Test Name Order Date 66828-WHDUWPT NAIL, 6 OR MORE 12/26/2023 Next Appt Details Follow Up: prn, Reason: Procedure Notes * Category Sub-Category Detail [...] use of a nail nipper and/or dremel-type grinder setup operator, to a more viable healthy nail plate or bed tissue 6-10. Silver nitrate used for any petechial bleeding as necessary. Definitive antifungal treatment options have been reviewed and discussed with the patient. The patient chooses, no pharmaceutical tx - 00509 Progress Notes * Benjamin ALVAREZ PDOB:1965 (58 yo M)Acc No.[id number]:12/26/2023 Progress Note Patient:?Benjamin Alvarez Provider:?Deanna Baron DPM :1965???Age:58 Y???Sex:Male Wilver e:12/26/2023 Address:[address] [place] [address] [address], [facility] Pcp:Jonn Smith Subjective: * Chief Complaints: * [...] History:?colonoscop y 06/19/21 * Hospitalization/Major Diagno stic Procedure:?GAY-Vugrfksgxi-EN visit 12/2018 * Family History:?Mother: alethea canales.?Father: alive.? * Social History:?Tobacco Use:?Tobacco Use/Smoking?Are you [...] ?Exercise: yes, walking. ?Marital status: single. 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 * Medications:?TakingAbilify c lonazePAM Ciclopirox Olamine 0.77 % Cream 1 application to affected area Externally Twice a day to effected areas on feetFlomax Superior Carbonate 600 MG Capsule 1 capsule at [...] to effected areas on feetTaking Flomax Taking [place] Carbonate 600 MG Capsule 1 capsule at [...] use of a nail nipper and/or dremel-type grinder setup operator, to a more viable healthy nail plate or bed tissue 6-10. Silver nitrate used for any petechial bleeding as necessary. Definitive antifungal treatment options have been reviewed and discussed with the patient. The patient chooses, no pharmaceutical tx - 71137.? * Procedure Codes:?81765 DEBRI DE NAIL, 6 OR MORE, Modifiers: XS * Follow Up:?prn * Images: * Sign off status: Completed true * Provider:?Deanna Baron DPM Date:?1 Generated for Senia velásquez/Mary/eTransmitting on:?05/20/2024 05:01 PM EST History and Physical Notes * [...]
--- OUTSIDE RECORDS SUMMARY | 2024-05-20 17:02 | XMS_ITS ---
Author Organization [facility] Address [address] [place] [address] Care Team Providers Care Associate Biological Sales Name Role Phone BREN RHOADES Primary Care Provider Remy Groves Jr Unavailable [phone] Encounters Encounter Location Date Provider Diagnosis [facility] [address] [place] [address] 04/25/2023 Remy Rodriguez Jr PLAN OF TREATMENT No Information
--- OUTSIDE RECORDS SUMMARY | 2024-05-20 17:02 | XMS_ITS ---
Author Organization [facility] Address [address] [place] [address] Care Team Providers Care Business Systems Manager Name Role Phone Jonn Smith Primary Care Provider Deanna Baron [phone] REASON FOR VISIT No Show Encounters Encounter Location Date Provider Diagnosis [facility] [address] [place] [address] 03/28/2024 Deanna Baron Plan Of Treatment No Information Progress Notes * ANTONIOBill Restrepoer PDOB:1965 (58 yo M)Acc No.[id number]:03/28/2024 Patient:?Benjamin ALVAREZ Gill :1965???Age:58 Y???Sex:Male Address:[address] [place] [address], [place], [address] * true * Date:? Generated for Printi christen/Mary/eTransmitting on:?05/20/2024 05:02 PM EST
--- OUTSIDE RECORDS SUMMARY | 2024-05-20 17:02 | XMS_ITS | Patient Health Record ---
Author Organization [facility] Behzad [facility]keon Address [address] [facility] [address] Care Team Providers Care Auto Wheel Alignment Specialist Name Role Phone SarahJonn Primary Care Provider [phone] Deanna Baron Unavailable [phone] Main Nino Unavailable [phone] Allergies No Known Allergies Reason For Referral No Information Medications Medication SIG (Take, Route, Frequency, Duration) Notes Start Date End Date Status Flomax Active Ciclopirox Olamine 0.77 % 1 application to affected area Externally Twice a day to effected areas on feet for 30 days Active clonazePAM Active Custom Orthotics as directed A ctive Tamsulosin HCl Activ e metFORMIN HCl 500 MG 1 tablet with a anat l Orally Once a day for 30 day(s) Active LORazepam 2 MG 1 tablet at bedtime as needed Orally Once a day Active [place] Carbonate 600 MG 1 capsule at be dtime Orally Once a day for 30 day(s) Active Abilify Active Physical Therapy . . . 2-3x/week for 3- 4 weeks Active Night Splint AFO - L1930 as directed Active Zoloft 100 mg Oral Active Immunizations Vaccine Route Administration Date Status [...] Polyneuropathy due to type 2 diabetes mellitus (676641209) Type 2 diabetes mellitus with diabetic polyneuropathy (E11.42) Active confirmed Vital Signs Blood pressure diastolic 80 mm Hg 12/26/2023 Height 5ft 10in in 12/26/2023 Blood pressure systolic 120 mm Hg 12/26/2023 Weight 227 lbs 12/26/2023 BMI 32.57 kg/m2 12/26/2023 Procedures Procedure Date Ordered Date Performed Result Body Sit e 10706-DGOWZRT NAIL, 6 OR MORE 12/26/2023 N/A Encounters Encounter Location Date Provider Diagnosis [facility] [address] 12/26/2023 Deanna Baron Tinea unguium B35.1 and Type 2 diabetes mellitus with diabetic polyneuropathy E11.[address] [facility] [address] 09/06/[address] [address] 03/28/2024 Deanna Baron Assessments Encounter Date Diagnosis (ICD Code) Assessment Notes Treatment Notes Treatment Clinical Notes Section Notes 12/26/2023 Tinea unguium (ICD-10 - B35.1) 12/26/2023 Type 2 diabetes mellitus with diabetic polyneuropathy (ICD-10 - E11.42) Plan Of Treatment Pending Test Test Name Order Date X ray : Foot, right 3V 10/17/2018 36769-JRWKPUF NAIL, 6 OR MORE 12/26/2023 04768-BUUH SKIN LESIONS, OVER 4 04/07/19 22 96551-XHSK SKIN LESIONS, OVER 4 01/31/20 19 94941-NIFH SKIN LESIONS, OVER 4 06/05/19 20 68966-RVEH SKIN LESIONS, OVER 4 07/31/19 19 29359-FKEN SKIN LESIONS, OVER 4 10/18/19 19 67022-RKCQ SKIN LESIONS, OVER 4 09/18/19 20 54036-CPOR SKIN LESIONS, OVER 4 12/16/19 20 20197-UWXF SKIN LESIONS, OVER 4 04/08/19 27276-FJYV SKIN LESIONS, OVER 4 08/06/19 51843-KPWH SKIN LESIONS, OVER 4 12/17/19 21 R0154-UWVPEFVD DYSTROPHIC NAILS ANY # R6967-OOIAWKOK DYSTROPHIC NAILS ANY # H2641-GLPIKOOJ DYSTROPHIC NAILS ANY # P2575-RIXAXPCR DYSTROPHIC NAILS ANY # O2756-QRGDDYDF DYSTROPHIC NAILS ANY # X0820-IDVFBACY DYSTROPHIC NAILS ANY # G6413-LUILWQQW DYSTROPHIC NAILS ANY # Insurance Providers Payer Name Payer Address Payer Phone Subscriber Number Group Number Insured Name Patient Relationship to Insured Coverage Start Date Coverage End Date [employer] Medicare Open [address] [place] [address] [id number] Benjamin Tenorio Self - patient is the insured Medical (General) History Medical History History ICD Code Depression type II diabetes Surgical History Surgery Date(Month/Year) colonoscopy 06/19/21 Hospitalization History Reason Date(Month/Year) DCV-Asvjbelzyn-YG visit 12/2018
--- OUTSIDE RECORDS SUMMARY | 2024-05-20 17:02 | XMS_ITS | Patient Health Record ---
Author Organization [facility] Address [address] [place] [address] Care Team Providers Care Corporate Legal Intern Name Role Phone BREN RHOADES Primary Care [...] the procedure for 1 day 05/19/2021 Active [place] Carbonate 300 MG Oral for 30 Active [...] Problem Colon cancer screening (Z12.11) Active confirmed [id number] Problem care home (current) use of oral hypoglycemic drugs (Z79.84) Active confirmed [id number] PLAN OF TREATMENT Future Test Test Name Order Date COLONOSCOPY 05/19/2021 Insurance Providers Payer Name Payer Address Payer Phone Subscriber Number Group Number Insured Name Patient Relationship to Insured Coverage Start Date Coverage End Date MEDICARE OF [place] [address] [place] [id number] [phone] [id number] MULUGETA ALVAREZ Self - patient is the insured MEDICAID OF [facility] [address] [place] [phone] [id number] MULUGETA ALVAREZ Self - patient is the insured MEDICAL (GENERAL) HISTORY Medical History History ICD Code diabetes mellitus hypertension schizophrenia BPH Surgical History Surgery Date(Month/Year)
[2024-05-27] VITALS (7 sets, daily range): BP systolic 128–165; BP diastolic 69–84; PULSE 72–89; RESP 16–18; TEMP 36.1–37.3; O2SAT 93–98; BMI 31.6
--- NOTE | 2024-05-27 07:11 | HO.ANESPROP2 ---
[facility] Active Problems Active Problems: All Active Problems Hospital discharge follow-up (Acute) Mild sleep apnea (Acute) Catatonia (Acute) Pre-op evaluation (Acute) Tardive dyskinesia (Acute) Schizoaffective disorder (Acute) Nocturnal hypoxia (Acute) Schizoaffective disorder, depressive type (Acute) Benign prostate hyperplasia (Acute) Essential hypertension (Acute) Right hip pain (Acute) Past Medical History Medical History Hospital discharge follow-up Mild sleep apnea Tardive dyskinesia Nocturnal hypoxia Routine medical exam Joint inflammation of right hand and wrist Status post fall Adult general medical exam Screening for colon cancer Screening for prostate cancer Cough BPH (benign prostatic hyperplasia) Family History Family History Mother Cancer Father Kidney agenesis Family history of problems with anesthesia: No Surgical History Surgical History History of colonoscopy (~06/15/21) History of tooth extraction History of root canal procedure History of Problems with Anesthesia: No Social History Social History Household Members: None Housing: Unknown / Unable to assess Are you a primary urgent care nurse practitioner to a significant other at home: No Do you presently have visiting nurse or other home services: Yes Unable to assess alcohol history related to: Unable to respond Alcohol intake: former Patient Tobacco Use Status: Never used Tobacco e-Cigarette/Vaping Use: Never Used Second Hand Smoke Exposure: No Advance Directives: No Advance Directives Information Provided: Yes service: No Current occupational status: employed Sexual orientation: Straight/Heterosexual Cognitive needs: No Hearing needs: No Vision needs: No Meds Allergies Allergy/AdvReac Type Severity Reaction Status Date / Time No Known Allergies [NKA] Allergy Unknown NONE Verified 05/23/24 14:52 Exam Height,Weight and Vital Signs: Height 5 ft 10 in Weight 99.79 kg Last Vital Signs Temp 97 F 05/27/24 07:00 Pulse 84 05/27/24 07:00 Resp 18 05/27/24 07:00 BP 128/79 05/27/24 07:00 Pulse Ox 94 05/27/24 07:00 O2 Del Method Room Air 05/27/24 07:00 Airway Mallampati Class: III TM Dist: >3cm Neck ROM: Full Loose/Missing/Broken Teeth: No Heart: RRR Lungs: CTA Assessment and Plan Assessment Anesthesia Assessment: Anesthesia Plan Discussed and Chart Reviewed Final Anesthetic Review Family History of Problems with Anesthesia: No History of Problems with Anesthesia: No NPO: Yes ASA Class: III Final Preanesthetic Review: Meds/Allgs Chart Reviewed, Consent Obtained/Reviewed and Anes Risks/Benef Reviewed Patient Risk: Intermediate Procedure Risk: Intermediate Anesthetic Plan Anesthetic Plan: GA Disposition: Standard PACU
--- NOTE | 2024-05-27 07:59 | MHC.SHP ---
Pre-Procedural Eval Section A - 24 Hr Update-Section A only Date of Service: 05/27/24 Section B - Complete if H&P > 30 days Chief Complaint: depression/catatonia Details of Present Illness: hx xatatonia has done well post d/c tremor noted Allergies: Allergies Allergy/AdvReac Type Severity Reaction Status Date / Time No Known Allergies [NKA] Allergy Unknown NONE Verified 05/23/24 14:52 Review of Systems Sugical H&P ROS: Negative: Cardiovascular, Respiratory and Gastrointestinal and Yes, Specify: Neurological (tremor) and Psychiatric (no diaz mood ok) Exam Surgical H&P Exam: Normal: Heart and Normal: Lungs and Significant Findings: Neurological (tremor) Plan Diagnosis/Plan: Unchanged I have reviewed the history and physical and performed a pertinent physical examination on my patient. No changes have occurred unless specified. Time Spent With Patient Time: Total time managing care of this patient today ____ minutes.
--- NOTE | 2024-05-27 08:02 | HO.ECTPROC ---
ECT Procedure Note Diagnosis/Treatment Date of Service: 05/27/24 Diagnosis: Schizoaffective Disorder Previous ECT Date: 05/20/24 Current Treatment Number: 11 Treatment: Series Interval Clinical Notes: The patient's catatonia resolved, he is much better. No side effects with the previous ECT.Pt has been discharged home doing ok Pt has noted resting tremor not catatonic feeling ok Time: Total time managing care of this patient today ____ minutes. ECT Settings Device: THYMATRON DGx Electrode Placement: Bitemporal Program/Pulse Width: 0.50 Energy Percent: 100 Seizure Duration By EEG (in seconds): 20 Medications Administration General Anesthetic: Etomidate (18) Muscle Relaxant: Succinylcholine (100) Ancillary Medications Anti-emetics: Zofran - Pre ECT Airway Management Airway Management: Bag Mask Ventilation Treatment Recommendations No Changes Recommended: No change Notes: f/u 1 week Pt Tolerated Procedure w/o Issue: Yes
== END 2024-05-27 09:53 | disposition home or self-care (01) ==
PROVIDERS: PCP Internal Medicine; Visit Provider Psychiatry & Neurology Psychiatry
PROC: (CPT 90870; principal; 2024-05-27 07:00)
DX: F25.9 Schizoaffective disorder, unspecified (principal); I10 Essential (primary) hypertension; E11.9 Type 2 diabetes mellitus without complications; G47.30 Sleep apnea, unspecified; N40.0 Benign prostatic hyperplasia without lower urinary tract symptoms; G24.01 Drug induced subacute dyskinesia; Z79.899 Other long term (current) drug therapy
CPT/HCPCS: 90870; J0330; J1596; J1805; J2405; J2704

== ENCOUNTER → 2024-05-27 05:58 | Outpatient (BNV) | payer MEDICARE, MEDICAID, SELFPAY | PROVIDERS: PCP Internal Medicine; Visit Provider Psychiatry & Neurology Psychiatry | DX: F33.3 Major depressive disorder, recurrent, severe with psychotic symptoms (principal) | CPT/HCPCS: 90870 ==

== ENCOUNTER 2024-05-30 14:31 | Outpatient (AMB) | payer MEDICARE, MEDICAID, SELFPAY ==
--- NOTE | 2024-05-30 14:50 | MHC.PC.OV ---
Vital Signs 05/30/24 14:51 Height 5 ft 10 in Weight 209 lb 6 oz BMI 30.0 BP 120/70 Blood Pressure Location Lt brachial Position Sitting Pulse 92 Pulse Source Pulse Oximeter Temp 97.5 F Temp Source Temporal Artery Scan Pulse Oximetry (%) 96 Oxygen Delivery Method Room Air Intake Visit Reasons: 3 month f/u Intake Note: Patient is here to follow up on HTN, BPH. Communications Strategist Required: No Scarf Gluer: Not Required per policy Accompanied by: Self / Same As Patient Allergies No Known Allergies [NKA] Allergy (Unknown, Verified 05/30/24 14:51) NONE Tobacco use date assessed: 05/30/24 Dental Screening Dental Screen Date: 05/23/24 [facility] Medical History Hospital discharge follow-up Mild sleep apnea Tardive dyskinesia Nocturnal hypoxia Routine medical exam Joint inflammation of right hand and wrist Status post fall Adult general medical exam Screening for colon cancer Screening for prostate cancer Cough BPH (benign prostatic hyperplasia) Surgical History History of colonoscopy (~06/15/21) History of tooth extraction History of root canal procedure Family History Mother Cancer Father Kidney agenesis Social History Household Members: None Housing: Unknown / Unable to assess Are you a primary lawn care professional to a significant other at home: No Do you presently have visiting nurse or other home services: Yes Unable to assess alcohol history related to: Unable to respond Alcohol intake: former Patient Tobacco Use Status: Never used Tobacco e-Cigarette/Vaping Use: Never Used Second Hand Smoke Exposure: No service: No Current occupational status: employed Sexual orientation: Straight/Heterosexual Cognitive needs: No Hearing needs: No Vision needs: No Questionnaire Thrive Questionnaire Date Thrive assessed: 04/12/24 JONAH-7 AMB Questionnaire JONAH-7 Date JONAH - 7 assessed: 05/23/24 Source: Developed by Drs. Jacob Bates, Farrah Scott, Jose Martin Powell and colleagues, with an educational brigid from [employer]. Physical exam (Primary Care) Vital Signs: Last Vital Signs Temp 97.5 F 05/30/24 14:51 Pulse 92 05/30/24 14:51 BP 120/70 05/30/24 14:51 Pulse Ox 96 05/30/24 14:51 Oxygen Delivery Method Room Air 05/30/24 14:51 BMI result Body Mass Index 30.0 Tobacco/Smoking Status: Tobacco use Status Tobacco use date assessed 05/30/24 05/30/24 14:55 Patient Tobacco Use Status Never used Tobacco 05/30/24 14:55 e-Cigarette/Vaping Use Never Used 05/30/24 14:55 Thrive Assessment: Date of Thrive Assessment Date Thrive assessed 04/12/24 05/30/24 14:55 Coding Level of Care Code Est Pt Level 4 (28833) Complex EM visit Add On G2211 Diagnoses Schizoaffective disorder, depressive type F25.1 Assessment & Plan Assessment & Plan (1) Schizoaffective disorder, depressive type: Code(s): F25.1 - Schizoaffective disorder, depressive type Category: Medical Plan: Continue Current medications Plan History of Present Illness The patient is a 58-year-old male presenting with a medication-induced tremor associated with the use of clozapine. Despite adherence to the prescribed medication, the tremor persists and remains nonpainful. The patient is compliant with his medication regimen, receiving assistance from a visiting nurse for medication administration. He manages his daily activities independently, including driving and cooking, with supplemental meals provided by [employer]. Social History - The patient lives independently. - He receives support from a visiting nurse for medication administration twice daily. - He manages his meal preparation but receives supplemental meals through a Meals on Wheels program. - The patient is capable of driving and regularly does so, including at night. Review of Systems - Neurological: Reports tremor - General: Denies pain Physical Exam General: Appearance normal, both eyes and all related structures Nutritional Appearance: Well nourished Orientation/consciousness: Patient oriented x3 Limitations: No limitations Head: Normal to inspection Neck: Normal visual inspection Chest: Normal palpation of entire chest wall Respiratory: Normal respiratory effort Neurology: Patient oriented x3, noted shaking Results Plan The patient's medication-induced tremor continues despite current treatment with clozapine. He is compliant with his medication regimen, supported by a visiting nurse. Given his stable condition and independence in daily activities, I advised monitoring his tremor progression. Follow-up with psychiatric services is recommended to evaluate potential medication adjustments. Medication adherence should be reinforced through continuing assistance by the visiting nurse. Patient was informed and verbally consented to the use of an ambient scribe for clinic note documentation during this visit. Discussion Notes During the consultation, I discussed with the patient the ongoing nature of his medication-induced tremor attributed to clozapine. I emphasized the importance of medication adherence, which is supported by the visiting nurse. We talked about the possibility of reevaluating his medication regimen with his psychiatrist to address the tremor. I reassured him of the current stability of his condition and provided anticipatory guidance for follow-up in six months, unless his condition changes. Patient Instructions - Continue taking all medications as prescribed. - Maintain regular visits with the visiting nurse for medication administration. - Monitor any changes in the tremor's severity and report them during follow-up. - Schedule and attend follow-up appointments with your psychiatrist. - Contact the clinic if new symptoms arise or existing symptoms worsen before your next appointment.
[2024-05-30 14:51] VITALS: BP 120/70; PULSE 92; TEMP 36.4; O2SAT 96
== END 2024-05-30 15:30 | disposition home or self-care (01) ==
PROVIDERS: PCP Internal Medicine; Visit Provider Internal Medicine
DX: F25.1 Schizoaffective disorder, depressive type (principal)

== ENCOUNTER → 2024-05-30 14:31 | Outpatient (BNVA) | payer MEDICARE, MEDICAID, SELFPAY | PROVIDERS: PCP Internal Medicine; Visit Provider Internal Medicine | DX: F25.1 Schizoaffective disorder, depressive type (principal) | CPT/HCPCS: 99212 ==

== ENCOUNTER 2024-06-03 06:09 | Day surgery (SDC) | payer MEDICARE, MEDICAID, SELFPAY ==
--- OUTSIDE RECORDS SUMMARY | 2024-05-22 17:42 | XMS_ITS ---
Author Organization [facility] Behzad jonah Mike Address [address] [facility] [place] [address] Care Team Providers Care Health Information Management Director Name Role Phone Jonn Smith Primary Care Provider [phone] Deanna Baron Unavailable [phone] Allergies No Known Allergies REASON FOR VISIT [...] Active Flomax Active Abilify Active clonazePAM Active [place] Carbonate 600 MG 1 capsule at be [...] Ordered Date Performed Result Body Sit e 91174-NZTFHVI NAIL, 6 OR MORE 12/26/2023 N/A Encounters Encounter Location Date Provider Diagnosis [facility] [place] [address] [place] [address] 12/26/2023 Deanna Baron Tinea unguium B35.1 and Type 2 diabetes mellitus with diabetic polyneuropathy E11.42 Assessments Encounter Date Diagnosis (ICD Code) Assessment Notes Treatment Notes Treatment Clinical Notes Section Notes 12/26/2023 Tinea unguium (ICD-10 - B35.1) 12/26/2023 Type 2 diabetes mellitus with diabetic polyneuropathy (ICD-10 - E11.42) Plan Of Treatment Pending Test Test Name Order Date 55701-EXTEJGJ NAIL, 6 OR MORE 12/26/2023 Next Appt [...] use of a nail nipper and/or dremel-type snag grinder, to a more viable healthy nail plate or bed tissue 6-10. Silver nitrate used for any petechial bleeding as necessary. Definitive antifungal treatment options have been reviewed and discussed with the patient. The patient chooses, no pharmaceutical tx - 73974 Progress Notes * Benjamin ALVAREZ PDOB:1965 (58 yo M)Acc No.[id number]:12/26/2023 Progress Note Patient:?Benjamin Alvarez Provider:?Deanna Baron DPM :1965???Age:58 Y???Sex:Male Wilver e:12/26/2023 Address:[address] [place] [address] [address], [facility] Pcp:Jonn Smith Subjective: * Chief Complaints: * [...] History:?colonoscop y 06/19/21 * Hospitalization/Major Diagno stic Procedure:?CXK-Utwabawjqv-JM visit 12/2018 * Family History:?Mother: alethea canales.?Father: [...] ?Exercise: yes, walking. ?Marital status: single. 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 * Medications:?TakingAbilify c lonazePAM Ciclopirox Olamine 0.77 % Cream 1 application to affected area Externally Twice a day to effected areas on feetFlomax [place] Carbonate 600 MG Capsule 1 capsule at [...] to effected areas on feetTaking Flomax Taking [place] Carbonate 600 MG Capsule 1 capsule at [...] use of a nail nipper and/or dremel-type snag grinder, to a more viable healthy nail plate or bed tissue 6-10. Silver nitrate used for any petechial bleeding as necessary. Definitive antifungal treatment options have been reviewed and discussed with the patient. The patient chooses, no pharmaceutical tx - 27078.? * Procedure Codes:?97467 DEBRI DE NAIL, 6 OR MORE, Modifiers: XS * Follow Up:?prn * Images: * Sign off status: Completed true * Provider:?Deanna Baron DPM Date:?1 Generated for Senia velásquez/Mary/eTransmitting on:?05/22/2024 05:42 PM EST History and Physical Notes * [...]
--- OUTSIDE RECORDS SUMMARY | 2024-05-22 17:42 | XMS_ITS ---
Author Organization [facility] Address [address] [place] [address] Care Team Providers Care Curriculum Assistant Name Role Phone Jonn Smith Primary Care Provider Deanna Baron [phone] Medications Medication SIG (Take, Route, Frequency, Duration) [...] as needed Orally Once a day Active [place] Carbonate 600 MG 1 capsule at be dtime Orally Once a day for 30 day(s) Active clonazePAM Active Custom Orthotics as directed A ctive Abilify Active Physical Therapy . . . 2-3x/week for 3- 4 weeks Active Night Splint AFO - L1930 as directed Active Tamsulosin HCl Activ e Zoloft 100 mg Oral Active Encounters Encounter Location Date Provider Diagnosis [facility] [address] [place] [address] 03/28/2024 Deanna Baron Plan Of Treatment No Information Progress Notes * ANTONIOBill Restrepoer PDOB:1965 (58 yo M)Acc No.[id number]:03/28/2024 Progress Note Patient:?Benjamin ALVAREZ Provider:?Deanna Baron DPM :1965???Age:58 Y???Sex:Male Wilver e:03/28/2024 Address:[address] [place] [address], [facility] Pcp:Jonn Smith Subjective: * Chief Complaints: * ??? * Medical History:? * Medications:?Taking Abilify , Taking clonazePAM , Taking Ciclopirox Olamine 0.77 % Cream 1 application to affected area Externally Twice a day to effected areas on feet , Taking Flomax , Taking [place] Carbonate 600 MG Capsule 1 capsule at [...] DPM Date:?0 03/28/2024 Generated for Senia velásquez/Mary/Marcelo on:?05/22/2024 05:42 PM EST
--- OUTSIDE RECORDS SUMMARY | 2024-05-22 17:42 | XMS_ITS | Patient Health Record ---
Author Organization [facility] Behzad Mckeon Address [address] [facility] [place] [address] Care Team Providers Care Engineering Programmer Name Role Phone SarahJonn Primary Care Provider Deanna Baron Unavailable [phone] Main Nino Unavailable [phone] Allergies No Known Allergies Reason For Referral [...] as needed Orally Once a day Active [place] Carbonate 600 MG 1 capsule at be [...] Polyneuropathy due to type 2 diabetes mellitus (585384262) Type 2 diabetes mellitus with diabetic polyneuropathy (E11.42) Active confirmed Vital Signs Blood pressure diastolic 80 mm Hg 12/26/2023 Height 5ft 10in in 12/26/2023 Blood pressure systolic 120 mm Hg 12/26/2023 Weight 227 lbs 12/26/2023 BMI 32.57 kg/m2 12/26/2023 Procedures Procedure Date Ordered Date Performed Result Body Sit e 77618-LHYQTSG NAIL, 6 OR MORE 12/26/2023 N/A Encounters Encounter Location Date Provider Diagnosis [facility] [address] 12/26/2023 Deanna Baron Tinea unguium B35.1 and Type 2 diabetes mellitus with diabetic polyneuropathy E11.[address] [facility] [address] 09/06/[address] [address] 03/28/2024 Deanna Baron Assessments Encounter Date Diagnosis (ICD Code) Assessment Notes Treatment Notes Treatment Clinical Notes Section Notes 12/26/2023 Tinea unguium (ICD-10 - B35.1) 12/26/2023 Type 2 diabetes mellitus with diabetic polyneuropathy (ICD-10 - E11.42) Plan Of Treatment Pending Test Test Name Order Date X ray : Foot, right 3V 10/17/2018 27213-QYMNSUH NAIL, 6 OR MORE 12/26/2023 82382-EBEQ SKIN LESIONS, OVER 4 04/07/19 22 12516-IHLA SKIN LESIONS, OVER 4 01/31/20 19 59594-CQNC SKIN LESIONS, OVER 4 06/05/19 20 38098-QYPP SKIN LESIONS, OVER 4 07/31/19 19 65372-LNUB SKIN LESIONS, OVER 4 10/18/19 19 29389-XVCP SKIN LESIONS, OVER 4 09/18/19 20 28105-WHBT SKIN LESIONS, OVER 4 12/16/19 20 19630-UQEH SKIN LESIONS, OVER 4 04/08/19 95215-ZVKZ SKIN LESIONS, OVER 4 08/06/19 32130-TUHK SKIN LESIONS, OVER 4 12/17/19 21 S5132-TTYOHMTQ DYSTROPHIC NAILS ANY # F4965-DZGGCVUN DYSTROPHIC NAILS ANY # B8387-ONZGBWAF DYSTROPHIC NAILS ANY # R6928-NBYAABSC DYSTROPHIC NAILS ANY # G6376-KWTXKNXN DYSTROPHIC NAILS ANY # U6711-PWGGRLUO DYSTROPHIC NAILS ANY # Z6590-SCSNAWRA DYSTROPHIC NAILS ANY # Insurance Providers Payer Name Payer Address Payer Phone Subscriber Number Group Number Insured Name Patient Relationship to Insured Coverage Start Date Coverage End Date Aetna Medicare Open [address] [place] [address] [id number] Benjamin Tenorio Self - patient is the insured Medical (General) History Medical History History ICD Code Depression type II diabetes Surgical History Surgery Date(Month/Year) colonoscopy 06/19/21 Hospitalization History Reason Date(Month/Year) YHQ-Bdpzzxbyoy-TP visit 12/2018
--- OUTSIDE RECORDS SUMMARY | 2024-05-22 17:42 | XMS_ITS ---
Author Organization [facility] Address [address] [place] [address] Care Team Providers Care Studio Data Analyst Name Role Phone Jonn Smith Primary Care Provider [phone] Deanna Baron [phone] REASON FOR VISIT No Show Encounters Encounter Location Date Provider Diagnosis [facility] [address] [place] [address] 03/28/2024 Deanna Baron Plan Of Treatment No Information Progress Notes * ANTONIOBill Restrepoer PDOB:1965 (58 yo M)Acc No.[id number]:03/28/2024 Patient:?Benjamin ALVAREZ Gill :1965???Age:58 Y???Sex:Male Address:[address] [place] [address] t , [place], [address] * true * Date:? Generated for Printi christen/Mary/eTransmitting on:?05/22/2024 05:42 PM EST
--- OUTSIDE RECORDS SUMMARY | 2024-05-22 17:43 | XMS_ITS | Patient Health Record ---
Author Organization [facility] Address [address] [place] [address] Care Team Providers Care Hims Clerk Name Role Phone BREN RHOADES Primary Care [...] the procedure for 1 day 05/19/2021 Active [place] Carbonate 300 MG Oral for 30 Active [...] Problem Colon cancer screening (Z12.11) Active confirmed [id number] Problem penitentiary (current) use of oral hypoglycemic drugs (Z79.84) Active confirmed [id number] PLAN OF TREATMENT Future Test Test Name Order Date COLONOSCOPY 05/19/2021 Insurance Providers Payer Name Payer Address Payer Phone Subscriber Number Group Number Insured Name Patient Relationship to Insured Coverage Start Date Coverage End Date MEDICARE OF [place] [address] [place] [id number] MULUGETA ALVAREZ Self - patient is the insured MEDICAID OF [facility] [address] [place] [phone] [id number] MULUGETA ALVAREZ Self - patient is the insured MEDICAL (GENERAL) HISTORY Medical History History ICD Code diabetes mellitus hypertension schizophrenia BPH Surgical History Surgery Date(Month/Year)
--- OUTSIDE RECORDS SUMMARY | 2024-05-22 17:43 | XMS_ITS ---
Author Organization [facility] Address [address] [place] [address] Care Team Providers Care Toll Line Inspector Name Role Phone BREN RHOADES Primary Care Provider Remy Groves Jr Unavailable [phone] Encounters Encounter Location Date Provider Diagnosis [facility] [address] [place] [address] 04/25/2023 Remy Rodriguez Jr PLAN OF TREATMENT No Information
[2024-06-03] VITALS (7 sets, daily range): BP systolic 124–165; BP diastolic 74–91; PULSE 82–97; RESP 16–18; TEMP 36.6–37.1; O2SAT 95–98; BMI 29.4
[2024-06-03] MEDS: Lactated Ringers 1,000 ML 100 ML IVCONT (06:54)
--- NOTE | 2024-06-03 07:42 | MHC.SHP ---
Pre-Procedural Eval Section A - 24 Hr Update-Section A only Date of Service: 06/03/24 Section B - Complete if H&P > 30 days Chief Complaint: depression Details of Present Illness: pt home alert some anxiety inc range affect not catatonic Relevant Social History: None History of Previous Operations: Relevant previous surgery/procedure and date(s) (recurrent ect) Allergies: Allergies Allergy/AdvReac Type Severity Reaction Status Date / Time No Known Allergies [NKA] Allergy Unknown NONE Verified 05/30/24 14:51 Review of Systems Sugical H&P ROS: Negative: Cardiovascular, Respiratory and Gastrointestinal and Yes, Specify: Neurological (tremor ) and Psychiatric (some anxiety) Exam Surgical H&P Exam: Normal: Heart and Normal: Lungs and Significant Findings: Neurological (rabbit tremor alert knows place ) Exam Comment: no noted psychosis Plan Diagnosis/Plan: Unchanged I have reviewed the history and physical and performed a pertinent physical examination on my patient. No changes have occurred unless specified. Time Spent With Patient Time: Total time managing care of this patient today ____ minutes.
--- NOTE | 2024-06-03 07:44 | P.CONAN_ITS ---
[facility] Active Problems Active Problems: All Active Problems Hospital discharge follow-up (Acute) Mild sleep apnea (Acute) Schizoaffective disorder (Acute) Nocturnal hypoxia (Acute) Schizoaffective disorder, depressive type (Acute) Benign prostate hyperplasia (Acute) Essential hypertension (Acute) Right hip pain (Acute) Past Medical History Medical History Hospital discharge follow-up Mild sleep apnea Tardive dyskinesia Nocturnal hypoxia Routine medical exam Joint inflammation of right hand and wrist Status post fall Adult general medical exam Screening for colon cancer Screening for prostate cancer Cough BPH (benign prostatic hyperplasia) Family History Family History Mother Cancer Father Kidney agenesis Family history of problems with anesthesia: No Surgical History Surgical History History of colonoscopy (~06/15/21) History of tooth extraction History of root canal procedure History of Problems with Anesthesia: No Social History Social History Household Members: None Housing: Unknown / Unable to assess Are you a primary healthcare architect to a significant other at home: No Do you presently have visiting nurse or other home services: Yes Unable to assess alcohol history related to: Unable to respond Alcohol intake: former Patient Tobacco Use Status: Never used Tobacco e-Cigarette/Vaping Use: Never Used Second Hand Smoke Exposure: No Advance Directives: No Advance Directives Information Provided: Yes service: No Current occupational status: employed Sexual orientation: Straight/Heterosexual Cognitive needs: No Hearing needs: No Vision needs: No Meds Allergies Allergy/AdvReac Type Severity Reaction Status Date / Time No Known Allergies [NKA] Allergy Unknown NONE Verified 05/30/24 14:51 Active Medications: Current Medications Lactated Ringer's (Lr) 1,000 mls @ 100 mls/hr IVCONT .Q10H KRISTIN Last Admin: 06/03/24 06:54 Dose: 100 mls/hr Exam Height,Weight and Vital Signs: Height 5 ft 10 in Weight 92.986 kg Last Vital Signs Temp 98 F 06/03/24 06:50 Pulse 82 06/03/24 06:50 Resp 16 06/03/24 06:50 BP 124/76 06/03/24 06:50 Pulse Ox 95 06/03/24 06:50 O2 Del Method Room Air 06/03/24 06:50 Airway Mallampati Class: III TM Dist: >3cm Neck ROM: Full Partial: Upper Loose/Missing/Broken Teeth: Yes and Upper Heart: RRR Lungs: CTA Assessment and Plan Assessment Anesthesia Assessment: Anesthesia Plan Discussed and Chart Reviewed Final Anesthetic Review Family History of Problems with Anesthesia: No History of Problems with Anesthesia: No NPO: Yes ASA Class: III Final Preanesthetic Review: Meds/Allgs Chart Reviewed, Consent Obtained/Reviewed and Anes Risks/Benef Reviewed Patient Risk: Intermediate Procedure Risk: Intermediate Anesthetic Plan Anesthetic Plan: GA Disposition: Standard PACU
--- NOTE | 2024-06-03 07:46 | HO.ECTPROC ---
ECT Procedure Note Diagnosis/Treatment Date of Service: 06/03/24 Diagnosis: Schizoaffective Disorder Current Treatment Number: 10 Treatment: Series Interval Clinical Notes: Pt seen in f/u mood improved oral fascial dyskinesia 'noted on clozapine ect BT no hallucinations or PI Time: Total time managing care of this patient today ____ minutes. ECT Settings Device: THYMATRON DGx Electrode Placement: Bitemporal Program/Pulse Width: 0.50 Energy Percent: 100 Seizure Duration By EEG (in seconds): 50 Medications Administration General Anesthetic: Etomidate (18) Muscle Relaxant: Succinylcholine (100) Ancillary Medications Anti-emetics: Zofran - Pre ECT Treatment Recommendations No Changes Recommended: No change Notes: f/u tx 1week Pt Tolerated Procedure w/o Issue: Yes
== END 2024-06-03 10:13 | disposition home or self-care (01) ==
PROVIDERS: PCP Internal Medicine; Visit Provider Psychiatry & Neurology Psychiatry
PROC: (CPT 90870; principal; 2024-06-03 07:30)
DX: F25.1 Schizoaffective disorder, depressive type (principal); F39 Unspecified mood [affective] disorder; G24.01 Drug induced subacute dyskinesia; T42.4X5A Adverse effect of benzodiazepines, initial encounter; I10 Essential (primary) hypertension; E11.9 Type 2 diabetes mellitus without complications; M19.041 Primary osteoarthritis, right hand; Z91.81 History of falling; N40.0 Benign prostatic hyperplasia without lower urinary tract symptoms; G47.30 Sleep apnea, unspecified; R05.9 Cough, unspecified; Z79.899 Other long term (current) drug therapy
CPT/HCPCS: 90870; J0330; J2405

== ENCOUNTER → 2024-06-03 06:09 | Outpatient (BNV) | payer MEDICARE, MEDICAID, SELFPAY | PROVIDERS: PCP Internal Medicine; Visit Provider Psychiatry & Neurology Psychiatry | DX: F33.3 Major depressive disorder, recurrent, severe with psychotic symptoms (principal) | CPT/HCPCS: 90870 ==

== ENCOUNTER 2024-06-10 06:16 | Day surgery (SDC) | payer MEDICARE, MEDICAID, SELFPAY ==
--- OUTSIDE RECORDS SUMMARY | 2024-05-24 14:00 | XMS_ITS | Patient Health Record ---
Author Organization [facility] Behzad Mckeon Address [address] [facility] [place] [address] Care Team Providers Care Criminal Defense Attorney Name Role Phone SarahJonn Primary Care Provider [phone] Deanna Baron Unavailable [phone] Main Nino Unavailable [phone] Allergies No Known Allergies Reason For Referral [...] as needed Orally Once a day Active [place] Carbonate 600 MG 1 capsule at be [...] Polyneuropathy due to type 2 diabetes mellitus (364708332) Type 2 diabetes mellitus with diabetic polyneuropathy (E11.42) Active confirmed Vital Signs Blood pressure diastolic 80 mm Hg 12/26/2023 Height 5ft 10in in 12/26/2023 Blood pressure systolic 120 mm Hg 12/26/2023 Weight 227 lbs 12/26/2023 BMI 32.57 kg/m2 12/26/2023 Procedures Procedure Date Ordered Date Performed Result Body Sit e 79145-WYHZFDV NAIL, 6 OR MORE 12/26/2023 N/A Encounters Encounter Location Date Provider Diagnosis [facility] [address] 12/26/2023 Deanna Baron Tinea unguium B35.1 and Type 2 diabetes mellitus with diabetic polyneuropathy E11.[address] [facility] [address] 09/06/[address] [address] 03/28/2024 Deanna Baron Assessments Encounter Date Diagnosis (ICD Code) Assessment Notes Treatment Notes Treatment Clinical Notes Section Notes 12/26/2023 Tinea unguium (ICD-10 - B35.1) 12/26/2023 Type 2 diabetes mellitus with diabetic polyneuropathy (ICD-10 - E11.42) Plan Of Treatment Pending Test Test Name Order Date X ray : Foot, right 3V 10/17/2018 88813-FTAAZSL NAIL, 6 OR MORE 12/26/2023 92736-GNZI SKIN LESIONS, OVER 4 04/07/19 22 19887-RKXS SKIN LESIONS, OVER 4 01/31/20 19 45890-XLPM SKIN LESIONS, OVER 4 06/05/19 20 60867-NYYE SKIN LESIONS, OVER 4 07/31/19 19 50741-UQQO SKIN LESIONS, OVER 4 10/18/19 19 68291-HNBT SKIN LESIONS, OVER 4 09/18/19 20 49111-ZHQL SKIN LESIONS, OVER 4 12/16/19 20 95498-THDU SKIN LESIONS, OVER 4 04/08/19 11458-BWLF SKIN LESIONS, OVER 4 08/06/19 06185-QJPO SKIN LESIONS, OVER 4 12/17/19 21 A2760-BSWLPOLL DYSTROPHIC NAILS ANY # J6289-ETMPAAFZ DYSTROPHIC NAILS ANY # X0274-IYCBGELL DYSTROPHIC NAILS ANY # P5086-GMZMFERW DYSTROPHIC NAILS ANY # T2775-JRWKAUSV DYSTROPHIC NAILS ANY # P6066-AIWGNATV DYSTROPHIC NAILS ANY # E8277-LKJIDBTT DYSTROPHIC NAILS ANY # Insurance Providers Payer Name Payer Address Payer Phone Subscriber Number Group Number Insured Name Patient Relationship to Insured Coverage Start Date Coverage End Date [employer] Medicare Open [address] [place] [address] [id number] Benjamin Tenorio Self - patient is the insured Medical (General) History Medical History History ICD Code Depression type II diabetes Surgical History Surgery Date(Month/Year) colonoscopy 06/19/21 Hospitalization History Reason Date(Month/Year) GCP-Dlaypcajcu-DO visit 12/2018
--- OUTSIDE RECORDS SUMMARY | 2024-05-24 14:00 | XMS_ITS ---
Author Organization [facility] Behzad jonah Mike Address [address] [facility] [place] [address] Care Team Providers Care Cattle Inspector Name Role Phone Jonn Smith Primary Care Provider Deanna Baron Unavailable [phone] Allergies No Known Allergies REASON FOR VISIT [...] Active Flomax Active Abilify Active clonazePAM Active [place] Carbonate 600 MG 1 capsule at be [...] Ordered Date Performed Result Body Sit e 18075-YESDUXH NAIL, 6 OR MORE 12/26/2023 N/A Encounters Encounter Location Date Provider Diagnosis [facility] [address] [place] [address] 12/26/2023 Deanna Baron Tinea unguium B35.1 and Type 2 diabetes mellitus with diabetic polyneuropathy E11.42 Assessments Encounter Date Diagnosis (ICD Code) Assessment Notes Treatment Notes Treatment Clinical Notes Section Notes 12/26/2023 Tinea unguium (ICD-10 - B35.1) 12/26/2023 Type 2 diabetes mellitus with diabetic polyneuropathy (ICD-10 - E11.42) Plan Of Treatment Pending Test Test Name Order Date 25480-LKLVXSL NAIL, 6 OR MORE 12/26/2023 Next Appt [...] use of a nail nipper and/or dremel-type head grinder, to a more viable healthy nail plate or bed tissue 6-10. Silver nitrate used for any petechial bleeding as necessary. Definitive antifungal treatment options have been reviewed and discussed with the patient. The patient chooses, no pharmaceutical tx - 83593 Progress Notes * Benjamin ALVAREZ PDOB:1965 (58 yo M)Acc No.[id number]:12/26/2023 Progress Note Patient:?Benjamin Alvarez Provider:?Deanna Baron DPM :1965???Age:58 Y???Sex:Male Wilver e:12/26/2023 Address:[address] [place] [address] [address], [facility] Pcp:Jonn Smith Subjective: * Chief Complaints: * [...] History:?colonoscop y 06/19/21 * Hospitalization/Major Diagno stic Procedure:?FJE-Idmggmrley-HQ visit 12/2018 * Family History:?Mother: alethea canales.?Father: [...] ?Exercise: yes, walking. ?Marital status: single. 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 * Medications:?TakingAbilify c lonazePAM Ciclopirox Olamine 0.77 % Cream 1 application to affected area Externally Twice a day to effected areas on feetFlomax [place] Carbonate 600 MG Capsule 1 capsule at [...] to effected areas on feetTaking Flomax Taking [place] Carbonate 600 MG Capsule 1 capsule at [...] use of a nail nipper and/or dremel-type head grinder, to a more viable healthy nail plate or bed tissue 6-10. Silver nitrate used for any petechial bleeding as necessary. Definitive antifungal treatment options have been reviewed and discussed with the patient. The patient chooses, no pharmaceutical tx - 60696.? * Procedure Codes:?17871 DEBRI DE NAIL, 6 OR MORE, Modifiers: XS * Follow Up:?prn * Images: * Sign off status: Completed true * Provider:?Deanna Baron DPM Date:?1 Generated for Senia velásquez/Mary/eTransmitting on:?05/24/2024 02:00 PM EST History and Physical Notes * [...]
--- OUTSIDE RECORDS SUMMARY | 2024-05-24 14:01 | XMS_ITS ---
Author Organization [facility] Address [address] [place] [address] Care Team Providers Care Tin Dipper Name Role Phone Jonn Smith Primary Care Provider [phone] Deanna Baron [phone] REASON FOR VISIT No Show Encounters Encounter Location Date Provider Diagnosis [facility] [address] [place] [address] 03/28/2024 Deanna Baron Plan Of Treatment No Information Progress Notes * ANTONIO, Benjamin PDOB:1965 (58 yo M)Acc No.[id number]:03/28/2024 Patient:?Benjamin ALVAREZ Gill :1965???Age:58 Y???Sex:Male Address:[address] [place] [address], [place], [address] * true * Date:? Generated for Printi christen/Mary/eTransmitting on:?05/24/2024 02:00 PM EST
--- OUTSIDE RECORDS SUMMARY | 2024-05-24 14:01 | XMS_ITS ---
Author Organization [facility] Address [address] [place] [address] Care Team Providers Care Outer Diameter Grinder Name Role Phone BREN RHOADES Primary Care Provider Remy Groves Jr Unavailable Encounters Encounter Location Date Provider Diagnosis [facility] [address] [place] [address] 04/25/2023 Remy Rodriguez Jr PLAN OF TREATMENT No Information
--- OUTSIDE RECORDS SUMMARY | 2024-05-24 14:01 | XMS_ITS | Patient Health Record ---
Author Organization [facility] Address [address] [place] [address] Care Team Providers Care Agricultural Produce Washer Name Role Phone BREN RHOADES Primary Care [...] the procedure for 1 day 05/19/2021 Active [place] Carbonate 300 MG Oral for 30 Active [...] Problem Colon cancer screening (Z12.11) Active confirmed 836351057 Problem [facility] (current) use of oral hypoglycemic drugs (Z79.84) Active confirmed 303428759380480 PLAN OF TREATMENT Future Test Test Name Order Date COLONOSCOPY 05/19/2021 Insurance Providers Payer Name Payer Address Payer Phone Subscriber Number Group Number Insured Name Patient Relationship to Insured Coverage Start Date Coverage End Date MEDICARE OF [place] [address] [place] [id number] MULUGETA ALVAREZ Self - patient is the insured MEDICAID OF [facility] [address] [place] [phone] [id number] MULUGETA ALVAREZ Self - patient is the insured MEDICAL (GENERAL) HISTORY Medical History History ICD Code diabetes mellitus hypertension schizophrenia BPH Surgical History Surgery Date(Month/Year)
--- OUTSIDE RECORDS SUMMARY | 2024-05-24 14:01 | XMS_ITS ---
Author Organization [facility] Address [address] [place] [address] Care Team Providers Care Impregnating Machine Operator Name Role Phone Jonn Smith Primary Care Provider Deanna Baron [phone] Medications Medication SIG (Take, Route, Frequency, Duration) [...] as needed Orally Once a day Active [place] Carbonate 600 MG 1 capsule at be dtime Orally Once a day for 30 day(s) Active clonazePAM Active Custom Orthotics as directed A ctive Abilify Active Physical Therapy . . . 2-3x/week for 3- 4 weeks Active Night Splint AFO - L1930 as directed Active Tamsulosin HCl Activ e Zoloft 100 mg Oral Active Encounters Encounter Location Date Provider Diagnosis [facility] [address] [place] [address] 03/28/2024 Deanna Baron Plan Of Treatment No Information Progress Notes * ANTONIOBill Restrepoer PDOB:1965 (58 yo M)Acc No.[id number]:03/28/2024 Progress Note Patient:?Benjamin ALVAREZ Provider:?Deanna Baron DPM :1965???Age:58 Y???Sex:Male Wilver e:03/28/2024 Address:[address] [place] [address], [facility] Pcp:Jonn Smith Subjective: * Chief Complaints: * ??? * Medical History:? * Medications:?Taking Abilify , Taking clonazePAM , Taking Ciclopirox Olamine 0.77 % Cream 1 application to affected area Externally Twice a day to effected areas on feet , Taking Flomax , Taking [place] Carbonate 600 MG Capsule 1 capsule at [...] DPM Date:?0 03/28/2024 Generated for Senia velásquez/Mary/Marcelo on:?05/24/2024 02:00 PM EST
[2024-06-10] VITALS (9 sets, daily range): BP systolic 133–172; BP diastolic 74–85; PULSE 82–93; RESP 16–20; TEMP 36.3–37.2; O2SAT 91–100; BMI 29.4
--- NOTE | 2024-06-10 06:45 | P.CONAN_ITS ---
[facility] Active Problems Active Problems: All Active Problems Hospital discharge follow-up (Acute) Mild sleep apnea (Acute) Schizoaffective disorder (Acute) Nocturnal hypoxia (Acute) Schizoaffective disorder, depressive type (Acute) Benign prostate hyperplasia (Acute) Essential hypertension (Acute) Right hip pain (Acute) Past Medical History Medical History Hospital discharge follow-up Mild sleep apnea Tardive dyskinesia Nocturnal hypoxia Routine medical exam Joint inflammation of right hand and wrist Status post fall Adult general medical exam Screening for colon cancer Screening for prostate cancer Cough BPH (benign prostatic hyperplasia) Family History Family History Mother Cancer Father Kidney agenesis Family history of problems with anesthesia: No Surgical History Surgical History History of colonoscopy (~06/15/21) History of tooth extraction History of root canal procedure History of Problems with Anesthesia: No Social History Social History Household Members: None Housing: Unknown / Unable to assess Are you a primary healthcare administrator to a significant other at home: No Do you presently have visiting nurse or other home services: Yes Unable to assess alcohol history related to: Unable to respond Alcohol intake: former Patient Tobacco Use Status: Never used Tobacco e-Cigarette/Vaping Use: Never Used Second Hand Smoke Exposure: No Advance Directives: No Advance Directives Information Provided: Yes service: No Current occupational status: employed Sexual orientation: Straight/Heterosexual Cognitive needs: No Hearing needs: No Vision needs: No Meds Allergies Allergy/AdvReac Type Severity Reaction Status Date / Time No Known Allergies [NKA] Allergy Unknown NONE Verified 05/30/24 14:51 Active Medications: Current Medications Lactated Ringer's (Lr) 1,000 mls @ 50 mls/hr IVCONT .Q20H KRISTIN Exam Airway Mallampati Class: II TM Dist: >3cm Neck ROM: Full Partial: Upper and Lower Heart: rrr Lungs: cta Assessment and Plan Assessment Anesthesia Assessment: Anesthesia Plan Discussed and Chart Reviewed Final Anesthetic Review Family History of Problems with Anesthesia: No History of Problems with Anesthesia: No NPO: Yes ASA Class: III Final Preanesthetic Review: No Changes in Pt Med Stat, Meds/Allgs Chart Reviewed and Consent Obtained/Reviewed Patient Risk: Intermediate Procedure Risk: Intermediate Anesthetic Plan Anesthetic Plan: GA Disposition: Standard PACU
[2024-06-10] MEDS: Lactated Ringers 1,000 ML 50 ML IVCONT (06:50)
--- NOTE | 2024-06-10 07:10 | MHC.SHP ---
Pre-Procedural Eval Section A - 24 Hr Update-Section A only Date of Service: 06/10/24 Section B - Complete if H&P > 30 days Chief Complaint: depression Details of Present Illness: pt home alert some anxiety inc range affect not catatonic Relevant Social History: None History of Previous Operations: Relevant previous surgery/procedure and date(s) (recurrent ect) Allergies: Allergies Allergy/AdvReac Type Severity Reaction Status Date / Time No Known Allergies [NKA] Allergy Unknown NONE Verified 05/30/24 14:51 Review of Systems Sugical H&P ROS: Negative: Cardiovascular, Respiratory and Gastrointestinal and Yes, Specify: Neurological (tremor ) and Psychiatric (some anxiety) Exam Surgical H&P Exam: Normal: Heart, Normal: Lungs, Normal: Abdomen and Normal: Skin and Significant Findings: Neurological (rabbit tremor alert knows place ) Exam Comment: no noted psychosis Plan Diagnosis/Plan: Unchanged I have reviewed the history and physical and performed a pertinent physical examination on my patient. No changes have occurred unless specified. Time Spent With Patient Time: Total time managing care of this patient today ____ minutes.
--- NOTE | 2024-06-10 07:14 | P.CONAN_ITS ---
[facility] Active Problems Active Problems: All Active Problems Hospital discharge follow-up (Acute) Mild sleep apnea (Acute) Schizoaffective disorder (Acute) Nocturnal hypoxia (Acute) Schizoaffective disorder, depressive type (Acute) Benign prostate hyperplasia (Acute) Essential hypertension (Acute) Right hip pain (Acute) Past Medical History Medical History Hospital discharge follow-up Mild sleep apnea Tardive dyskinesia Nocturnal hypoxia Routine medical exam Joint inflammation of right hand and wrist Status post fall Adult general medical exam Screening for colon cancer Screening for prostate cancer Cough BPH (benign prostatic hyperplasia) Family History Family History Mother Cancer Father Kidney agenesis Family history of problems with anesthesia: No Surgical History Surgical History History of colonoscopy (~06/15/21) History of tooth extraction History of root canal procedure History of Problems with Anesthesia: No Social History Social History Household Members: None Housing: Unknown / Unable to assess Are you a primary manager care management to a significant other at home: No Do you presently have visiting nurse or other home services: Yes Unable to assess alcohol history related to: Unable to respond Alcohol intake: former Patient Tobacco Use Status: Never used Tobacco e-Cigarette/Vaping Use: Never Used Second Hand Smoke Exposure: No Advance Directives: No Advance Directives Information Provided: Yes service: No Current occupational status: employed Sexual orientation: Straight/Heterosexual Cognitive needs: No Hearing needs: No Vision needs: No Meds Allergies Allergy/AdvReac Type Severity Reaction Status Date / Time No Known Allergies [NKA] Allergy Unknown NONE Verified 05/30/24 14:51 Active Medications: Current Medications Lactated Ringer's (Lr) 1,000 mls @ 50 mls/hr IVCONT .Q20H KRISTIN Last Admin: 06/10/24 06:50 Dose: 50 mls/hr Naloxone HCl (Naloxone Hcl 0.4 Mg/Ml Vial) 0.04 mg IVPUSH Q5M PRN PRN Reason: Excessive sedation or RR < 8 Exam Height,Weight and Vital Signs: Height 5 ft 10 in Weight 92.986 kg Last Vital Signs Temp 97.4 F 06/10/24 06:46 Pulse 83 06/10/24 06:46 Resp 20 06/10/24 06:46 BP 143/84 H 06/10/24 06:46 Pulse Ox 97 06/10/24 06:46 O2 Del Method Room Air 06/10/24 06:46 Airway Mallampati Class: III TM Dist: >3cm Neck ROM: Full Partial: Upper Loose/Missing/Broken Teeth: Yes and Upper Heart: RRR Lungs: CTA Assessment and Plan Assessment Anesthesia Assessment: Anesthesia Plan Discussed and Chart Reviewed Final Anesthetic Review Family History of Problems with Anesthesia: No History of Problems with Anesthesia: No NPO: Yes ASA Class: III Final Preanesthetic Review: Meds/Allgs Chart Reviewed, Consent Obtained/Reviewed and Anes Risks/Benef Reviewed Patient Risk: Intermediate Procedure Risk: Intermediate Anesthetic Plan Anesthetic Plan: GA Disposition: Standard PACU
--- NOTE | 2024-06-10 07:30 | MHC.SHP ---
Pre-Procedural Eval Section A - 24 Hr Update-Section A only Date of Service: 06/10/24 Section B - Complete if H&P > 30 days Chief Complaint: depression Details of Present Illness: pt home alert some anxiety inc range affect not catatonic but depressd Relevant Social History: None Present Medications: None History of Previous Operations: Relevant previous surgery/procedure and date(s) (recurrent ect) Allergies: Allergies Allergy/AdvReac Type Severity Reaction Status Date / Time No Known Allergies [NKA] Allergy Unknown NONE Verified 05/30/24 14:51 Review of Systems Sugical H&P ROS: Negative: Cardiovascular, Respiratory and Gastrointestinal and Yes, Specify: Neurological (tremor ) and Psychiatric (some anxiety) Exam Surgical H&P Exam: Normal: Heart, Normal: Lungs, Normal: Abdomen and Normal: Skin and Significant Findings: Neurological (rabbit tremor alert knows place ) Exam Comment: no noted psychosis but depressed Plan Diagnosis/Plan: Unchanged I have reviewed the history and physical and performed a pertinent physical examination on my patient. No changes have occurred unless specified. Time Spent With Patient Time: Total time managing care of this patient today ____ minutes.
--- NOTE | 2024-06-10 07:33 | HO.ECTPROC ---
ECT Procedure Note Diagnosis/Treatment Date of Service: 06/10/24 Diagnosis: Schizoaffective Disorder Previous ECT Date: 06/03/24 Current Treatment Number: 11 Treatment: Series Interval Clinical Notes: Pt seems withdrawn verbal some depression some oral fascial dyskinesia no hallucinations Time: Total time managing care of this patient today ____ minutes. ECT Settings Device: THYMATRON DGx Electrode Placement: Bitemporal Program/Pulse Width: 0.50 Energy Percent: 100 Seizure Duration By EEG (in seconds): 38 Medications Administration General Anesthetic: Etomidate (18) Muscle Relaxant: Succinylcholine (100) Airway Management Airway Management: Bag Mask Ventilation Treatment Recommendations No Changes Recommended: No change Pt Tolerated Procedure w/o Issue: Yes
== END 2024-06-10 10:33 | disposition home or self-care (01) ==
PROVIDERS: PCP Internal Medicine; Visit Provider Psychiatry & Neurology Psychiatry
PROC: (CPT 90870; principal; 2024-06-10 07:30)
DX: F25.1 Schizoaffective disorder, depressive type (principal); F06.1 Catatonic disorder due to known physiological condition; I10 Essential (primary) hypertension; E11.9 Type 2 diabetes mellitus without complications; M19.041 Primary osteoarthritis, right hand; N40.0 Benign prostatic hyperplasia without lower urinary tract symptoms; Z91.81 History of falling; G24.01 Drug induced subacute dyskinesia; G47.30 Sleep apnea, unspecified; Z79.899 Other long term (current) drug therapy
CPT/HCPCS: 90870; J0330; J2405

== ENCOUNTER → 2024-06-10 06:16 | Outpatient (BNV) | payer MEDICARE, MEDICAID, SELFPAY | PROVIDERS: PCP Internal Medicine; Visit Provider Psychiatry & Neurology Psychiatry | DX: F33.3 Major depressive disorder, recurrent, severe with psychotic symptoms (principal) | CPT/HCPCS: 90870 ==

== ENCOUNTER 2024-06-17 06:10 | Day surgery (SDC) | payer MEDICARE, MEDICAID, SELFPAY ==
--- OUTSIDE RECORDS SUMMARY | 2024-05-30 08:09 | XMS_ITS ---
Author Organization [facility] Behzad jonah Mike Address [address] [place] [address] Care Team Providers Care Detective Sergeant Name Role Phone Jonn Smith Primary Care Provider Deanna Baron Unavailable [phone] Allergies No Known Allergies REASON FOR VISIT [...] Active Flomax Active Abilify Active clonazePAM Active Dellrose Carbonate 600 MG 1 capsule at be [...] Ordered Date Performed Result Body Sit e 92568-WYJCWRV NAIL, 6 OR MORE 12/26/2023 N/A Encounters Encounter Location Date Provider Diagnosis [facility] [place] [address] [place] [address] 12/26/2023 Deanna Baron Tinea unguium B35.1 and Type 2 diabetes mellitus with diabetic polyneuropathy E11.42 Assessments Encounter Date Diagnosis (ICD Code) Assessment Notes Treatment Notes Treatment Clinical Notes Section Notes 12/26/2023 Tinea unguium (ICD-10 - B35.1) 12/26/2023 Type 2 diabetes mellitus with diabetic polyneuropathy (ICD-10 - E11.42) Plan Of Treatment Pending Test Test Name Order Date 07281-IDIKISY NAIL, 6 OR MORE 12/26/2023 Next Appt [...] use of a nail nipper and/or dremel-type needle grinder, to a more viable healthy nail plate or bed tissue 6-10. Silver nitrate used for any petechial bleeding as necessary. Definitive antifungal treatment options have been reviewed and discussed with the patient. The patient chooses, no pharmaceutical tx - [address]205 Progress Notes * Benjamin ALVAREZ PDOB:1965 (58 yo M)Acc No.[id number]:12/26/2023 Progress Note Patient:?Benjamin Alvarez Provider:?Deanna Baron DPM :1965???Age:58 Y???Sex:Male Wilver e:12/26/2023 Address:[address] [place] [address] [address], [facility] Pcp:Jonn Smith Subjective: * Chief Complaints: * [...] History:?colonoscop y 06/19/21 * Hospitalization/Major Diagno stic Procedure:?KFC-Bgtjapolrm-HA visit 12/2018 * Family History:?Mother: alethea canales.?Father: [...] ?Exercise: yes, walking. ?Marital status: single. 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 * Medications:?TakingAbilify c lonazePAM Ciclopirox Olamine 0.77 % Cream 1 application to affected area Externally Twice a day to effected areas on feetFlomax Dellrose Carbonate 600 MG Capsule 1 capsule at [...] to effected areas on feetTaking Flomax Taking Dellrose Carbonate 600 MG Capsule 1 capsule at [...] use of a nail nipper and/or dremel-type needle grinder, to a more viable healthy nail plate or bed tissue 6-10. Silver nitrate used for any petechial bleeding as necessary. Definitive antifungal treatment options have been reviewed and discussed with the patient. The patient chooses, no pharmaceutical tx - 48244.? * Procedure Codes:?72354 DEBRI DE NAIL, 6 OR MORE, Modifiers: XS * Follow Up:?prn * Images: * Sign off status: Completed true * Provider:?Deanna Baron DPM Date:?1 Generated for Senia velásquez/Mary/eTransmitting on:?05/30/2024 08:09 AM EST History and Physical Notes * HPI [...]
--- OUTSIDE RECORDS SUMMARY | 2024-05-30 08:09 | XMS_ITS | Patient Health Record ---
Author Organization [facility] Address [address] [place] [address] Care Team Providers Care Superintendent Plant Protection Name Role Phone BREN RHOADES Primary Care Provider Remy Groves Jr Unavailable [phone] Reason For Referral No Information Medications Medication [...] the procedure for 1 day 05/19/2021 Active [place] Carbonate 300 MG Oral for 30 Active Tamsulosin HCl 0.4 MG Oral for 90 Active Immunizations Vaccine Route Administration Date Status Comme nts Influenza Unknown 11/25/2020 Administered Social History Tobacco Use: Social History Observation Description Date Details (start date - stop date) Never Smoker NA - NA Tobacco Use/Smoking Question Answer Notes Patient is a nonsmoker Alcohol Screen Question Answer Notes Did you have a drink containing alcohol in the p ast year? 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) use of oral hypoglycemic drugs (Z79.84) Active confirmed Plan Of Treatment Future Test Test Name Order Date COLONOSCOPY 05/19/2021 Insurance Providers Payer Name Payer Address Payer Phone Subscriber Number Group Number Insured Name Patient Relationship to Insured Coverage Start Date Coverage End Date MEDICARE OF [place] [address] [place] [id number] MULUGETA ALVAREZ Self - patient is the insured MEDICAID OF [facility] [address] [place] [phone] [id number] MULUGETA ALVAREZ Self - patient is the insured Medical (General) History Medical History History ICD Code diabetes mellitus hypertension schizophrenia BPH Surgical History Surgery Date(Month/Year)
--- OUTSIDE RECORDS SUMMARY | 2024-05-30 08:09 | XMS_ITS ---
Author Organization [facility] Address [address] [place] [address] Care Team Providers Care Aquarist Name Role Phone Jonn Smith Primary Care Provider [phone] Deanna Baron [phone] REASON FOR VISIT No Show Encounters Encounter Location Date Provider Diagnosis [facility] [address] [place] [address] 03/28/2024 Deanna Baron Plan Of Treatment No Information Progress Notes * ANTONIO, Benjamin PDOB:1965 (58 yo M)Acc No.[id number]:03/28/2024 Patient:?Benjamin ALVAREZ Gill :1965???Age:58 Y???Sex:Male Address:[address] [place] [address], [place], [address] * true * Date:? Generated for Printi christen/Mary/eTransmitting on:?05/30/2024 08:09 AM EST
--- OUTSIDE RECORDS SUMMARY | 2024-05-30 08:09 | XMS_ITS | Patient Health Record ---
Author Organization [facility] Behzad [place] Address [address] [place] [address] Care Team Providers Care Commercial Helicopter Pilot Name Role Phone SarahJonn Primary Care Provider [phone] Deanna Baron Unavailable [phone] Main Nino Unavailable [phone] Allergies No Known Allergies Reason For Referral [...] as needed Orally Once a day Active Hart Carbonate 600 MG 1 capsule at be [...] Polyneuropathy due to type 2 diabetes mellitus (051505599) Type 2 diabetes mellitus with diabetic polyneuropathy (E11.42) Active confirmed Vital Signs Blood pressure diastolic 80 mm Hg 12/26/2023 Height 5ft 10in in 12/26/2023 Blood pressure systolic 120 mm Hg 12/26/2023 Weight 227 lbs 12/26/2023 BMI 32.57 kg/m2 12/26/2023 Procedures Procedure Date Ordered Date Performed Result Body Sit e 95011-NMGBUKU NAIL, 6 OR MORE 12/26/2023 N/A Encounters Encounter Location Date Provider Diagnosis [facility] [address] 12/26/2023 Deanna Baron Tinea unguium B35.1 and Type 2 diabetes mellitus with diabetic polyneuropathy E11.[address] [facility] [address] 09/06/[address] [address] 03/28/2024 Deanna Baron Assessments Encounter Date Diagnosis (ICD Code) Assessment Notes Treatment Notes Treatment Clinical Notes Section Notes 12/26/2023 Tinea unguium (ICD-10 - B35.1) 12/26/2023 Type 2 diabetes mellitus with diabetic polyneuropathy (ICD-10 - E11.42) Plan Of Treatment Pending Test Test Name Order Date X ray : Foot, right 3V 10/17/2018 93715-MNJBHIE NAIL, 6 OR MORE 12/26/2023 19964-BVFK SKIN LESIONS, OVER 4 04/07/19 22 48532-ZSUH SKIN LESIONS, OVER 4 01/31/20 19 69402-MOWO SKIN LESIONS, OVER 4 06/05/19 20 07258-BRYN SKIN LESIONS, OVER 4 07/31/19 19 48368-KTTN SKIN LESIONS, OVER 4 10/18/19 19 61943-GPYG SKIN LESIONS, OVER 4 09/18/19 20 85625-ZVYF SKIN LESIONS, OVER 4 12/16/19 20 71054-NFKY SKIN LESIONS, OVER 4 04/08/19 14792-SBHE SKIN LESIONS, OVER 4 08/06/19 01796-HZXY SKIN LESIONS, OVER 4 12/17/19 21 D9162-MCNNCNZL DYSTROPHIC NAILS ANY # F9164-RQXSEHFB DYSTROPHIC NAILS ANY # T2748-PGYGJSAJ DYSTROPHIC NAILS ANY # R3596-PZJWPRBV DYSTROPHIC NAILS ANY # U8001-XRISSWOB DYSTROPHIC NAILS ANY # G8493-KIKFIUCU DYSTROPHIC NAILS ANY # K6921-DHWQZTXE DYSTROPHIC NAILS ANY # Insurance Providers Payer Name Payer Address Payer Phone Subscriber Number Group Number Insured Name Patient Relationship to Insured Coverage Start Date Coverage End Date [employer] Medicare Open [address] [place] [address] [id number] Benjamin Tenorio Self - patient is the insured Medical (General) History Medical History History ICD Code Depression type II diabetes Surgical History Surgery Date(Month/Year) colonoscopy 06/19/21 Hospitalization History Reason Date(Month/Year) PCM-Ojoqsdxmpc-CD visit 12/2018
--- OUTSIDE RECORDS SUMMARY | 2024-05-30 08:09 | XMS_ITS ---
[facility] Organization [facility] Address [address] [place] [address] Care Team Providers Care Ski Lift Operator Name Role Phone Jonn Smith Primary Care Provider Deanna Baron [phone] Medications Medication SIG (Take, Route, Frequency, Duration) [...] as needed Orally Once a day Active [place] Carbonate 600 MG 1 capsule at be dtime Orally Once a day for 30 day(s) Active clonazePAM Active Custom Orthotics as directed A ctive Abilify Active Physical Therapy . . . 2-3x/week for 3- 4 weeks Active Night Splint AFO - L1930 as directed Active Tamsulosin HCl Activ e Zoloft 100 mg Oral Active Encounters Encounter Location Date Provider Diagnosis [facility] [address] [place] [address] 03/28/2024 Deanna Baron Plan Of Treatment No Information Progress Notes * ANTONIOBill Restrepoer PDOB:1965 (58 yo M)Acc No.[id number]:03/28/2024 Progress Note Patient:?Benjamin ALVAREZ Provider:?Deanna Baron DPM :1965???Age:58 Y???Sex:Male Wilver e:03/28/2024 Address:[address] [place] [address], [facility] Pcp:Jonn Smith Subjective: * Chief Complaints: * ??? * Medical History:? * Medications:?Taking Abilify , Taking clonazePAM , Taking Ciclopirox Olamine 0.77 % Cream 1 application to affected area Externally Twice a day to effected areas on feet , Taking Flomax , Taking [place] Carbonate 600 MG Capsule 1 capsule at [...] DPM Date:?0 03/28/2024 Generated for Senia velásquez/Mary/Marcelo on:?05/30/2024 08:09 AM EST
--- OUTSIDE RECORDS SUMMARY | 2024-05-30 08:10 | XMS_ITS ---
Author Organization [facility] Address [address] [place] [address] Care Team Providers Care Union Organizer Name Role Phone BREN RHOADES Primary Care Provider Remy Groves Jr Unavailable [phone] Encounters Encounter Location Date Provider Diagnosis [facility] [address] [place] [address] 04/25/2023 Remy Rodriguez Jr Plan Of Treatment No Information Progress Notes * MULUGETA ALVAREZ PDOB:1965 (57 yo M)Acc No.[id number]:04/25/2023 Patient:?MULUGETA ALVAREZ :1965???Age:57 Y???Sex:Male Address:[address] [place] [address] [address], [place] [address] * true * Date:? Generated for Senia velásquez/Mary/eTransmitting on:?05/30/2024 08:09 AM EST
[2024-06-17] VITALS (9 sets, daily range): BP systolic 118–150; BP diastolic 51–86; PULSE 72–94; RESP 16–21; TEMP 36.4–36.9; O2SAT 94–98; BMI 29.4
--- NOTE | 2024-06-17 06:56 | MHC.SHP ---
Pre-Procedural Eval Section A - 24 Hr Update-Section A only Date of Service: 06/17/24 The patient is an INPATIENT: No Changes since office visit: No Cold of Flu in the past 2 weeks, No New Medical Problems, No Changes in Medication and No Patient answered all questions The patient has been examined within 24 hours of the surgical procedure. The History & Physical has been completed within 30 days and I have reviewed it.: Yes Section B - Complete if H&P > 30 days Chief Complaint: depression Allergies: Allergies Allergy/AdvReac Type Severity Reaction Status Date / Time No Known Allergies [NKA] Allergy Unknown NONE Verified 05/30/24 14:51 Plan I have reviewed the history and physical and performed a pertinent physical examination on my patient. No changes have occurred unless specified. Time Spent With Patient Time: Total time managing care of this patient today ____ minutes.
[2024-06-17] MEDS: Lactated Ringers 1,000 ML 50 ML IVCONT (07:31)
--- NOTE | 2024-06-17 07:43 | HO.ECTPROC ---
ECT Procedure Note Diagnosis/Treatment Date of Service: 06/17/24 Diagnosis: Catatonia and Schizoaffective Disorder Previous ECT Date: 06/10/24 Current Treatment Number: 12 Treatment: Maintenance Interval Clinical Notes: The patient was awake and alert, answering questions, no evidence of catatonia but he was very anxious and shaky. He reported that he was feeling like having the flu. The staff that brought him reported that he has been a little more hypoactive. ECT done as usual, no complications, I added a dose of Ativan 2 mg IVP after the procedure. Woke up well, no complications. Time: Total time managing care of this patient today __30__ minutes. ECT Settings Device: THYMATRON DGx Electrode Placement: Bitemporal Program/Pulse Width: 0.50 Energy Percent: 100 Seizure Duration By EEG (in seconds): 20 By Motor Observation (in seconds): 15 Medications Administration General Anesthetic: Etomidate (18) Muscle Relaxant: Succinylcholine (100) Ancillary Medications Anti-emetics: Zofran - Pre ECT Miscillaneous Medications: Other (Ativan 2 mg IVP after ECT) Airway Management Airway Management: Bag Mask Ventilation Treatment Recommendations No Changes Recommended: No change Notes: kEEP ECT WEEKLY, IF HE STARTS TO DECOMPENSATE, HE SHOULD HAVE IT MORE FREQUENTLY Pt Tolerated Procedure w/o Issue: Yes
[2024-06-17] MEDS: LORazepam 2 MG/ML VIAL IVPUSH (07:46)
== END 2024-06-17 10:16 | disposition home or self-care (01) ==
PROVIDERS: PCP Internal Medicine; Visit Provider Psychiatry & Neurology Psychiatry
PROC: (CPT 90870; principal; 2024-06-17 07:30)
DX: F25.1 Schizoaffective disorder, depressive type (principal); F06.1 Catatonic disorder due to known physiological condition; I10 Essential (primary) hypertension; E11.9 Type 2 diabetes mellitus without complications; M19.041 Primary osteoarthritis, right hand; N40.0 Benign prostatic hyperplasia without lower urinary tract symptoms; Z91.81 History of falling; G24.01 Drug induced subacute dyskinesia; G47.30 Sleep apnea, unspecified; Z79.899 Other long term (current) drug therapy
CPT/HCPCS: 90870; J0330; J1596; J1805; J2060; J2405; J2704

== ENCOUNTER → 2024-06-17 06:10 | Outpatient (BNV) | payer MEDICARE, MEDICAID, SELFPAY | PROVIDERS: PCP Internal Medicine; Visit Provider Psychiatry & Neurology Psychiatry | DX: F33.3 Major depressive disorder, recurrent, severe with psychotic symptoms (principal) | CPT/HCPCS: 90870 ==

== ENCOUNTER 2024-06-19 20:28 | Inpatient (IN) | payer MEDICARE, MEDICAID, SELFPAY ==
--- NOTE | ~2024-06-19 | XR_ITS ---
EXAMINATION: XR CHEST 1 VIEW HISTORY: Hypoxia, concern for aspiration COMPARISON: Comparison is made with the prior examination dated 06/26/2024. FINDINGS: A single AP portable view of the chest performed at 9:09 AM is submitted. There is mild elevation of the right hemidiaphragm. The lungs are clear. There is no pleural effusion, pneumothorax, or pulmonary vascular congestion. The heart is normal in size. There is degenerative disc disease of the spine. XR/XR chest 1V IMPRESSION: Mild elevation of the right hemidiaphragm. The lungs are clear. Electronically signed by: Jacob Hope MD 07/03/2024 09:38 AM EDT
--- NOTE | ~2024-06-19 | XR_ITS ---
EXAMINATION: XR ABDOMEN 1 VIEW (KUB) HISTORY: on clozapine ? bowel obs COMPARISON: Comparison is made with the prior examination dated 07/04/2022. FINDINGS: Three portable supine views of the abdomen performed at 5:19 PM are submitted. The bowel gas pattern is unremarkable, without evidence of mechanical obstruction. There is a large amount stool throughout the colon. No abnormal calcifications are identified. There are no abnormal soft tissue masses. There is degenerative disc disease of the spine. XR/XR KUB IMPRESSION: Large amount of stool throughout the colon. No evidence of bowel obstruction. Electronically signed by: Jacob Hope MD 07/04/2024 07:14 AM EDT
--- NOTE | ~2024-06-19 | XR_ITS ---
EXAMINATION: XR CHEST 1 VIEW HISTORY: Post-ECT hypoxia, r/o aspiration COMPARISON: Comparison is made with the prior examination dated 02/21/2024. FINDINGS: A single AP portable view of the chest performed at 1:04 PM is submitted. There is new opacity at the right lung base which may represent pneumonia. The left lung is clear. There is no pleural effusion, pneumothorax, or pulmonary vascular congestion. The heart is normal in size. There is mild degenerative disc disease of the spine. XR/XR chest 1V IMPRESSION: Airspace opacity at the right lung base which may represent pneumonia. Follow-up is recommended. Electronically signed by: Jacob Hope MD 06/26/2024 01:50 PM EDT
[2024-06-19 20:38] VITALS: BP 144/95; BP 155/74; PULSE 88; PULSE 90; RESP 16; TEMP 36.9; O2SAT 96; O2SAT 97; BMI 21.8
--- NOTE | 2024-06-19 22:48 | PC.NURSE ---
Report given to FAITH Nguyen.
[2024-06-19 23:04] LABS: MANUAL DIFF FLAG NO
[2024-06-19 23:05] LABS: Basophils Percent Auto 0.2 % (0-2); Hematocrit 38.2 % (42.0-52.0); Imm Gran Abs Auto 0.08 X10*3/uL (0.00-0.03); Imm Gran Pct Auto 0.7 % (0.0-0.4); Lymphocytes Absolute Auto 2.3 X10*3/uL (1.2-4.9); Lymphocytes Percent Auto 20.7 % (20-40); Mean Corpuscular Hemoglobin 28.6 pg (27.0-33.0); Mean Platelet Volume 10.1 fL (9.4-12.4); Monocytes Percent Auto 8.8 % (2-11); Neutrophils Absolute Auto 7.6 x10*3/uL (2.0-8.3); Neutrophils Percent Auto 69.6 % (45-73); Platelet Count 200 X10*3/uL (160-400); Red Blood Count 4.55 X10*6/uL (4.60-5.80); Red Cell Distribution Width 13.9 % (11.0-16.0); White Blood Count 10.9 X10*3/uL (4.8-10.8)
--- NOTE | 2024-06-19 23:16 | ED.GENADULT ---
HPI - General Adult General Chief complaint: General Medical Stated complaint: schizophrenia, blank stare Time Seen by Provider: 06/19/24 23:16 History of Present Illness ED Provider: Cristofer GUZMÁN narrative: The patient is a 59-year-old male with a history of schizoaffective disorder who was on clozapine. He also has a history of episodes of catatonia. He was hospitalized earlier this year and received ECT. He has continued to receive ECT as an outpatient. His last treatment with ECT was 2 days ago on June 17. Apparently his nurse was concerned because he did not answer his door for his nighttime medications. An ambulance was called. He was felt to be catatonic and was brought to the emergency room. The patient is demeanor is quite withdrawn and he is minimally communicative. Related Data Previous Rx's ?Medication ?Instructions ?Recorded clozapine 100 mg tablet 200 mg (2 x 100 mg) PO BEDTIME 30 05/21/24 days #60 tabs glycopyrrolate 1 mg tablet 0.5 mg (1/2 x 1 mg) PO BID 30 days 05/21/24 #30 tabs lorazepam 1 mg tablet 1 mg PO TID 30 days #90 tabs 05/21/24 tamsulosin 0.4 mg capsule 0.4 mg PO BEDTIME 30 days #30 caps 05/21/24 Allergies Allergy/AdvReac Type Severity Reaction Status Date / Time No Known Allergies [NKA] Allergy Unknown NONE Verified 06/19/24 20:43 Review of Systems Review of Systems: Yes Unobtainable due to mental status PMFSH Past Medical History Medical History Hospital discharge follow-up Mild sleep apnea Tardive dyskinesia Nocturnal hypoxia Routine medical exam Joint inflammation of right hand and wrist Status post fall Adult general medical exam Screening for colon cancer Screening for prostate cancer Cough BPH (benign prostatic hyperplasia) Surgical History History of colonoscopy (~06/15/21) History of tooth extraction History of root canal procedure Family History Family History Mother Cancer Father Kidney agenesis Social History Social History Household Members: None Housing: Unknown / Unable to assess Are you a primary acute care physical therapist to a significant other at home: No Do you presently have visiting nurse or other home services: Yes Unable to assess alcohol history related to: Unable to respond Alcohol intake: former Patient Tobacco Use Status: Never used Tobacco Smoked in Last 30 Days: No e-Cigarette/Vaping Use: Never Used Second Hand Smoke Exposure: No Use of substances other than those prescribed or required for medical reasons: No Advance Directives: No Advance Directives Information Provided: No Do you have a plan to hurt others: No Plan service: No Current occupational status: employed Sexual orientation: Straight/Heterosexual Cognitive needs: No Hearing needs: No Vision needs: No Physical Exam ED Vital Signs: Vital Signs - 24 hr 06/19/24 20:38 06/19/24 23:41 06/20/24 00:35 Temperature 98.5 F 98.0 F Pulse Rate 88 82 83 Respiratory Rate 16 16 16 Blood Pressure 155/74 H 162/86 H Pulse Oximetry 97 96 97 Oxygen Delivery Method Room Air Room Air Room Air 06/20/24 05:48 Temperature 98.1 F Pulse Rate 87 Respiratory Rate 16 Blood Pressure 158/80 H Pulse Oximetry 96 Oxygen Delivery Method Room Air BMI result Body Mass Index 21.8 Const Other: The patient is a 59-year-old male who seemed awake. His eyes were open and he made eye contact. However he did not respond to questions and seemed very withdrawn. HENMT Other: Face is symmetrical. Mucous membranes moist. Eyes Other: Pupils are round, equal, and reactive to light, conjunctivae are clear. Extraocular movements seem intact. Neck Other: The patient's neck seems supple. Resp Effort & Inspection: normal respiratory effort Auscultation: clear to auscultation bilaterally Cardio Rate: regular rate Rhythm: regular rhythm Heart sounds: S1 normal heart sound present and S2 normal heart sound present GI Other: The abdomen was soft and seems nontender. Skin Other: Skin is dry and unremarkable Neuro Other: The patient was awake and made eye contact but seemed very withdrawn and did not answer questions. Pupils were round and reactive, extraocular movements seemed intact, the face was symmetrical. He has paucity of speech. At first he did not speak but later he spoke and he was able to speak without dysarthria. Ultimately I felt that his cranial nerves were intact. He has symmetrical tone in all of his extremities. When I firtt examined him he seemed to have wax-like plasticity of his limbs. If I lifted his limb he would leave that limb where I lifted it. He has symmetrical tone in his extremities. Extrem Other: No peripheral edema. Medications Administered Discontinued Medications Generic Name Dose Route Start Last Admin Trade Name Michelle PRN Reason Stop Dose Admin Diazepam 10 mg 06/20/24 02:31 06/20/24 02:37 Diazepam 10 Mg/2 Ml Cartridge IVPUSH 06/20/24 02:32 10 mg STAT STA Administration Lorazepam 2 mg 06/19/24 23:43 06/20/24 00:08 Lorazepam 2 Mg/Ml Vial IVPUSH 06/19/24 23:44 2 mg ONCE ONE Administration Medical Decision Making Medical Decision Making [facility] Narrative: The patient is a 59-year-old male with a history of schizoaffective disorder and a history of catatonia. He has been receiving ECT as an outpatient lately. Despite this the patient seems to have worsening catatonia today. He had a wax figure type of malleability and seemed quite withdrawn. The patient was given 2 mg of IV lorazepam and he was transiently more alert and interactive. However the affect of the lorazepam did not last very long and he once again seemed quite self absorbed. He was subsequently given 10 mg of IV diazepam. I believe the patient is medically clear for disposition by the care team and psychiatry. A care team consult has been placed. We will keep the patient in the emergency room with the an IV in place for additional benzodiazepine administration as needed. At the end of my shift a care team consult is is still pending. I have also put in for a psychiatric consult. The patient will be placed in physician observation pending evaluation by the care team and psychiatry for additional recommendations. Lab Data 06/19/24 22:59 06/19/24 22:59 Labs: Lab Results 06/19/24 06/20/24 Range/Units 22:59 00:38 WBC 10.9 H (4.8-10.8) X10*3/uL RBC 4.55 L (4.60-5.80) X10*6/uL Hgb 13.0 L (14.0-18.0) g/dl Hct 38.2 L (42.0-52.0) % MCV 84.0 (80.0-98.0) fL MCH 28.6 (27.0-33.0) pg MCHC 34.0 (31.0-36.0) g/dl RDW 13.9 (11.0-16.0) % Plt Count 200 D (160-400) X10*3/uL MPV 10.1 (9.4-12.4) fL Immature Gran % (Auto) 0.7 H (0.0-0.4) % Neut % (Auto) 69.6 (45-73) % Lymph % (Auto) 20.7 (20-40) % [place] % (Auto) 8.8 (2-11) % Eos % (Auto) 0.0 (0-4) % Baso % (Auto) 0.2 (0-2) % Lymph # (Auto) 2.3 (1.2-4.9) X10*3/uL [place] # (Auto) 1.0 (0.1-1.2) X10*3/uL Eos # (Auto) 0.0 (0.0-0.4) X10*3/uL Baso # (Auto) 0.0 (0.0-0.2) X10*3/uL Abs Immat Gran (auto) 0.08 H (0.00-0.03) X10*3/uL Absolute Neuts (auto) 7.6 (2.0-8.3) x10*3/uL Absolute Nucleated RBC 0.000 (0.0-0.012) X10*3/uL Nucleated RBC % (auto) 0.0 (0.0-0.2) /100WBC Sodium 140 (135-145) mmol/L Potassium 4.1 (3.3-5.1) mmol/L Chloride 108 (96-108) mmol/L Carbon Dioxide 23 (22-29) mmol/L Anion Gap 13 (12-20) BUN 21 H (9-16) mg/dL Creatinine 1.28 (0.5-1.4) mg/dL Estim Creat Clear Calc 63.3 Estimated GFR 57 Random Glucose 91 (60-115) mg/dL Calcium 9.2 (8.4-10.2) mg/dL Total Bilirubin 0.8 (0.0-1.0) mg/dL AST 17 (5-37) U/L ALT 12 (0-40) U/L Alkaline Phosphatase 50 (39-117) U/L Troponin I High Sens 3.9 (<3.5-35.0) ng/L Total Protein 7.1 (6.5-8.0) g/dL Albumin 4.2 (3.5-5.0) g/dL Ethyl Alcohol < 10 mg/dL Influenza Type A (PCR) NEGATIVE (Negative) Influenza Type B (PCR) NEGATIVE (Negative) RSV RNA Qual (PCR) NEGATIVE (Negative) SARS-CoV-2 RNA (RT-PCR) NEGATIVE (Negative) Discharge Plan Discharge Clinical Impression: Catatonia, Schizoaffective disorder Patient Disposition: Still a Patient Prescriptions: No Action glycopyrrolate 1 mg Tablet 0.5 mg PO BID 30 Days Qty: 30 0RF clozapine 100 mg Tablet 200 mg PO BEDTIME 30 Days Qty: 60 0RF tamsulosin 0.4 mg Capsule 0.4 mg PO BEDTIME 30 Days Qty: 30 0RF lorazepam 1 mg Tablet 1 mg PO TID 30 Days Qty: 90 0RF Print Language: Slovenian
[2024-06-19 23:20] LABS: Anion Gap 13 (12-20); Blood Urea Nitrogen 21 mg/dL (9-16); Calcium 9.2 mg/dL (8.4-10.2); Carbon Dioxide 23 mmol/L (22-29); Chloride 108 mmol/L (96-108); Creatinine Clr Calc Pharmacy 63.3; Estimated Glomerular Filt Rate 57; Glucose Random 91 mg/dL (60-115); Potassium 4.1 mmol/L (3.3-5.1); Sodium 140 mmol/L (135-145)
[2024-06-19 23:21] LABS: Alanine Aminotransferase 12 U/L (0-40); Albumin Level 4.2 g/dL (3.5-5.0); Alkaline Phosphatase 50 U/L (39-117); Aspartate Amino Transferase 17 U/L (5-37); Bilirubin Total 0.8 mg/dL (0.0-1.0); Total Protein 7.1 g/dL (6.5-8.0)
[2024-06-19 23:28] LABS: Troponin-I High Sensitivity 3.9 ng/L (<3.5-35.0)
[2024-06-19 23:41] VITALS: BP 162/86; PULSE 82; RESP 16; TEMP 36.7; O2SAT 96
--- NOTE | 2024-06-19 23:48 | MHC.EDTECH ---
Pt assisted to bathroom with security for meter changes records clerk. Pt walks with slow steady gait. Pt very slow to respond to commands and seems unsteady at times. Belongings on shelf 2 in [facility].
[2024-06-20] MEDS: LORazepam 2 MG/ML VIAL IVPUSH ×3 (00:08→16:43)
[2024-06-20 00:26] LABS: Ethanol < 10 mg/dL
[2024-06-20 00:35] VITALS: PULSE 83; RESP 16; O2SAT 97
--- NOTE | 2024-06-20 01:02 | PC.NURSE ---
this rn assumed care of pt at 2300. pt noted to be staring off in a catatonic like state, pt is answering questions appropriately. pt is denies si/hi at this time. pt noted to not be changed over, security called to bedside and pt changed into green gown. 20G placed in left ac and pt medicated per may. sitter placed on pt for safety.
[2024-06-20 01:19] LABS: Influenza A PCR NEGATIVE (Negative); Influenza B PCR NEGATIVE (Negative); Resp Syncy Virus RNA Qual PCR NEGATIVE (Negative); SARS COV2 PCR INHOUSE NEGATIVE (Negative)
--- NOTE | 2024-06-20 01:35 | PC.NURSE ---
pt able to sit up, move bilateral arms and legs on command at this time, at bedside.
[2024-06-20] MEDS: diazePAM 10 MG/2 ML CARTRIDGE IVPUSH (02:37)
--- NOTE | 2024-06-20 02:42 | PC.NURSE ---
pt noted to intermittently shake arms and stare off to ceiling, when speaking to pt, pt will track with eyes, not respond verbally and then look back up to the ceiling. aware, pt medicated per mar.
--- NOTE | 2024-06-20 04:55 | ECG_ITS ---
Test Reason : WEAKNESS Blood Pressure : */* mmHG Vent. Rate : 81 BPM Atrial Rate : 81 BPM P-R Int : 158 ms QRS Dur : 82 ms QT Int : 376 ms P-R-T Axes : 54 29 49 degrees QTcB Int : 436 ms Normal sinus rhythm Normal ECG When compared with ECG of 12-Apr-2024 12:55, Sinus rhythm has replaced Atrial flutter Referred By: Yvon Cleveland Electronically Signed By: AUGUSTO RAYMUNDO MD
[2024-06-20 05:48] VITALS: BP 158/80; PULSE 87; RESP 16; TEMP 36.7; O2SAT 96
[2024-06-20 08:21] VITALS: BP 139/79; PULSE 80; RESP 20; TEMP 36.7; O2SAT 94
--- NOTE | 2024-06-20 08:30 | PC.NURSE ---
Assumed care of pt at 0700. Pt resting quietly on stretcher, alert- not responding to questions, able to follow commands appropriately, tracks with eyes while talking, respirations even and unlabored, no increased wob/sob noted. Pt medicated per MAY. 1:1 sitter at bedside for safety, call contreras within reach, all needs met at this time.
--- NOTE | 2024-06-20 12:30 | MHC.EDTECH ---
marli cath placed on pt, RN made aware
[2024-06-20 12:34] VITALS: BP 158/86; PULSE 86; RESP 15; TEMP 37.1; O2SAT 95
--- NOTE | 2024-06-20 13:26 | MHC.EDTECH ---
Anastasia pt mentioned to t/w stating I want to . RN made aware
--- NOTE | 2024-06-20 15:39 | PC.NURSE ---
Pt remains in catatonic state, briefly responds to questions, able to follow commands. Pt has not urinated, bladder scan showed >700. MD Mtz made aware.
[2024-06-20 15:42] VITALS: BP 159/84; PULSE 85; RESP 16; TEMP 36.8; O2SAT 95
--- NOTE | 2024-06-20 16:08 | PC.NURSE ---
Pt unable to ambulate to bathroom, straight cath done with ok from MD Mtz. 650ml output. Drug screen urine obtained and sent to lab. Pt offered snacks/drinks. 1:1 sitter at bedside. Call contreras within reach, all needs met at this time.
[2024-06-20 16:20] LABS: Amphetamine Screen Urine Not Detected (Not Detect); Barbiturates, Urine Not Detected (Not Detect); Benzodiazepines Screen Urine POSITIVE (Not Detect); Buprenorphine Scr Not Detected (Not Detect); Cannabinoid Screen Urine Not Detected (Not Detect); Cocaine Screen Urine Not Detected (Not Detect); Fentanyl, urine Not Detected (Not Detect); Methadone Screen, Urine Not Detected (Not Detect); Opiate Screen Urine Not Detected (Not Detect); Oxycodone Screen Urine Not Detected (Not Detect); Phencyclidine Screen Urine Not Detected (Not Detect)
[2024-06-20 18:07] VITALS: BP 162/97; PULSE 101; RESP 20; TEMP 36.6; O2SAT 95
--- NOTE | 2024-06-20 18:47 | PC.ADMIT ---
Pt. arrived on unit at 17:30 via WC and accompanied by 2 RNs. Changeover and contraband search conducted with no significant findings. Pt. unable to respond to most questions due to catatonia. Able to follow some directions (Eating, standing to transfer) with verbal and physical prompts. Only able to determine orientation to self. Pt. did smile at one point when staff joked with him. Fed self sandwiches once handed to him. Unable to sign any admission paperwork. Denisse George NP notified of admission.
[2024-06-20] MEDS: Tamsulosin HCL 0.4 MG CAPSULE PO (20:22)
[2024-06-20 20:32] LABS: Alanine Aminotransferase 14 U/L (0-40); Albumin Level 4.3 g/dL (3.5-5.0); Alkaline Phosphatase 53 U/L (39-117); Anion Gap 16 (12-20); Aspartate Amino Transferase 25 U/L (5-37); Bilirubin Total 0.8 mg/dL (0.0-1.0); Blood Urea Nitrogen 28 mg/dL (9-16); Calcium 9.5 mg/dL (8.4-10.2); Carbon Dioxide 19 mmol/L (22-29); Chloride 109 mmol/L (96-108); Creatinine Clr Calc Pharmacy 56.4; Estimated Glomerular Filt Rate 51; Glucose Random 131 mg/dL (60-115); Potassium 4.5 mmol/L (3.3-5.1); Sodium 139 mmol/L (135-145); Total Protein 7.4 g/dL (6.5-8.0)
[2024-06-20] MEDS: LORazepam 1 MG TABLET 2 MG PO (21:10)
[2024-06-21 08:04] VITALS: BP 167/93; PULSE 101; RESP 20; TEMP 36.6; O2SAT 94
[2024-06-21 08:08] LABS: Estimated Average Glucose 111 mg/dL; Hemoglobin A1C 137.2552 umol/L; Hemoglobin A1c % 5.5 % (<6.0)
[2024-06-21 08:14] LABS: Cholesterol 149 mg/dL (<200); HDL Cholesterol 43 mg/dL (>40); LDL Cholesterol Calculated 94 mg/dL (<100); Triglycerides 64 mg/dL (<150)
--- NOTE | 2024-06-21 13:30 | P.HPPS_ITS ---
HPI Date of Service: 06/21/24 Chief Complaint: Catatonia Sources of Information: patient interviewed, chart reviewed and crisis/core team assessment reviewed HPI Subjective Notes: [place] Warning and Section 12B Healthcare Proxy: Yes Narrative: The patient is a 59-year-old male, single, with no children, with a past history of schizoaffective disorder, living alone with several ancillary services in the community such as pace and visiting nurse provided by [facility]. The patient is very well known by this facility since he had been admitted at least 3 times in the last 6 months. Usually, he becomes catatonic and gets admitted into the hospital. Historically, he has improved dramatically with ECT and he had been having ECT as an outpatient. The patient is very well known by the team since he had several admissions to this unit with similar presentation due to catatonia. The last time that I saw the patient was last week when he attended to his regular ECT appointment. At that moment the patient was slightly hypoactive. Later on, the [facility] staff came to visit at home and he was found to be catatonic again. He was rushed to the emergency room assessed by the care team and transferring to this facility for psychiatric stabilization. On the intake interview the patient was able to recognize me and he was able to respond with yes no questions but most of the time he was nearly catatonic. He was even able to feed himself but he is not at his baseline. We called his father who is the healthcare proxy and he was signed in a conditional voluntary by healthcare proxy. Past Psychiatric History: Inpatient: multiple in the past. h/o ECT for catatonia. OP: [facility] Og Lomas Past medication trials: clozaril, ativan, sertraline, olanzapine. Medical Evaluation Reviewed: Yes [facility] Medical History Hospital discharge follow-up Mild sleep apnea Tardive dyskinesia Nocturnal hypoxia Routine medical exam Joint inflammation of right hand and wrist Status post fall Adult general medical exam Screening for colon cancer Screening for prostate cancer Cough BPH (benign prostatic hyperplasia) Surgical History History of colonoscopy (~06/15/21) History of tooth extraction History of root canal procedure Family History: unknown Social History: lives independently, works, drives. apartment in [place]. Trauma History: unknown Diagnostics Vital Signs (24Hr): Vital Signs - 24 hr 06/20/24 15:42 06/20/24 18:07 06/21/24 08:04 Temperature 98.2 F 97.9 F 98 F Pulse Rate 85 101 H 101 H Respiratory Rate 16 20 20 Blood Pressure 159/84 H 162/97 H 167/93 H Pulse Oximetry 95 95 94 Oxygen Delivery Method Room Air Room Air BMI result Body Mass Index 21.8 Labs 06/19/24 22:59 06/20/24 19:51 Labs: Laboratory Results - last 48 hr 06/19/24 06/20/24 06/20/24 22:59 00:38 16:00 WBC 10.9 H RBC 4.55 L Hgb 13.0 L Hct 38.2 L MCV 84.0 MCH 28.6 MCHC 34.0 RDW 13.9 Plt Count 200 D MPV 10.1 Immature Gran % (Auto) 0.7 H Neut % (Auto) 69.6 Lymph % (Auto) 20.7 [place] % (Auto) 8.8 Eos % (Auto) 0.0 Baso % (Auto) 0.2 Lymph # (Auto) 2.3 [place] # (Auto) 1.0 Eos # (Auto) 0.0 Baso # (Auto) 0.0 Abs Immat Gran (auto) 0.08 H Absolute Neuts (auto) 7.6 Absolute Nucleated RBC 0.000 Nucleated RBC % (auto) 0.0 Sodium 140 Potassium 4.1 Chloride 108 Carbon Dioxide 23 Anion Gap 13 BUN 21 H Creatinine 1.28 Estim Creat Clear Calc 63.3 Estimated GFR 57 Random Glucose 91 Estimat Average Glucose Hemoglobin A1c % Calcium 9.2 Total Bilirubin 0.8 AST 17 ALT 12 Alkaline Phosphatase 50 Troponin I High Sens 3.9 Total Protein 7.1 Albumin 4.2 Triglycerides Cholesterol LDL Cholesterol, Calc HDL Cholesterol Urine Opiates Screen Not Detected Ur Buprenorphine Scrn Not Detected Ur Oxycodone Screen Not Detected Urine Methadone Screen Not Detected Urine Fentanyl Screen Not Detected Ur Barbiturates Screen Not Detected Ur Phencyclidine Scrn Not Detected Ur Amphetamines Screen Not Detected U Benzodiazepines Scrn POSITIVE H Urine Cocaine Screen Not Detected U Marijuana (THC) Screen Not Detected Ethyl Alcohol < 10 Influenza Type A (PCR) NEGATIVE Influenza Type B (PCR) NEGATIVE RSV RNA Qual (PCR) NEGATIVE SARS-CoV-2 RNA (RT-PCR) NEGATIVE 06/20/24 06/21/24 19:51 07:53 WBC RBC Hgb Hct MCV MCH MCHC RDW Plt Count MPV Immature Gran % (Auto) Neut % (Auto) Lymph % (Auto) [place] % (Auto) Eos % (Auto) Baso % (Auto) Lymph # (Auto) [place] # (Auto) Eos # (Auto) Baso # (Auto) Abs Immat Gran (auto) Absolute Neuts (auto) Absolute Nucleated RBC Nucleated RBC % (auto) Sodium 139 Potassium 4.5 Chloride 109 H Carbon Dioxide 19 L Anion Gap 16 BUN 28 H Creatinine 1.42 H Estim Creat Clear Calc 56.4 Estimated GFR 51 Random Glucose 131 H Estimat Average Glucose 111 Hemoglobin A1c % 5.5 Calcium 9.5 Total Bilirubin 0.8 AST 25 ALT 14 Alkaline Phosphatase 53 Troponin I High Sens Total Protein 7.4 Albumin 4.3 Triglycerides 64 Cholesterol 149 LDL Cholesterol, Calc 94 HDL Cholesterol 43 Urine Opiates Screen Ur Buprenorphine Scrn Ur Oxycodone Screen Urine Methadone Screen Urine Fentanyl Screen Ur Barbiturates Screen Ur Phencyclidine Scrn Ur Amphetamines Screen U Benzodiazepines Scrn Urine Cocaine Screen U Marijuana (THC) Screen Ethyl Alcohol Influenza Type A (PCR) Influenza Type B (PCR) RSV RNA Qual (PCR) SARS-CoV-2 RNA (RT-PCR) Meds/Allergies Allergies Allergies Allergy/AdvReac Type Severity Reaction Status Date / Time No Known Allergies [NKA] Allergy Unknown NONE Verified 06/19/24 20:43 Mental Status Exam Mental Status Exam Patient Appearance: Well Grooomed Patient Orientation: Person and Situation Level of Consciousness: Awake and Appropriate Patient Behavior: Guarded and Passive Mood Description: Withdrawn Affect Description: Blunted Patient Cognition Impaired: Yes Ability to Follow Directions: Fair Speech Pattern: Impoverished Hallucinations: None Delusions: Not Present Thought Process: Slowed Thinking Thought Content: positive for [place] and positive for Poverty of Content Judgement: Poor Assessment & Plan Assessment & Plan (1) Schizoaffective disorder: Status: Acute Code(s): F25.9 - Schizoaffective disorder, unspecified (2) Catatonia: Status: Acute Code(s): F06.1 - Catatonic disorder due to known physiological condition Plan The patient is a 59-year-old male with a past history of schizoaffective disorder and catatonia who was readmitted again for relapse on catatonic symptoms even though that he had been fully compliant with antipsychotics, benzodiazepines and ECT. The patient had been receiving outpatient ECT and apparently in the last days he had been more hypoactive. He was assessed by the care team and transferring to this facility for psychiatric stabilization. Plan 1. Gather more collateral information. 2. Invoke healthcare proxy since the patient at this moment is catatonic unable to sign CV. 3. Referral for ECT. 4. Hospitalist follow-up. 5. Continue with Clozaril and other medications. 6. 15 minute checks. Patient educated on: ECT and medical condition Reason for continued inpatient stay Substantial Risk for: inability to function, rapid decompensation and med/psych decompensation Statement Statement: I have reviewed the history and physical and performed a pertinent examination on my patient. No changes have occurred unless specified. If the History and Physical was not performed prior to admission, the Hospitalist's service will be consulted for completing the admission physical. Time Spent With Patient Time: Total time managing care of this patient today __45__ minutes.
--- NOTE | 2024-06-21 14:14 | HE.PHANOTE ---
RE: CLOZAPINE LAST DOSE Per nurse Vale, she thinks patient's last dose of clozapine was on 06/18/24 because visiting nurse did a wellness check on patient on 06/19/24 and called ambulance and patient was admitted on 06/20/24. Consulted with Dahiana Haney about patient being 48 hours without medication and should be retitrated from baseline to avoid cardio adverse effects. Dahiana Haney still wanted patient to receive the full home dose of 200 mg at bedtime (confirmed with her twice).
[2024-06-21] MEDS: LORazepam 1 MG TABLET 2 MG PO (16:01)
--- NOTE | 2024-06-21 19:09 | PC.NURSE ---
Hospital pharmacist requesting last dose of clozapine pt. received. Per CARE team assmt. he did not answer door for visiting nurse to administer med on the , making the the last dose received.
[2024-06-21 20:00] VITALS: BP 129/87; PULSE 87; RESP 18; TEMP 36.2; O2SAT 94
[2024-06-21] MEDS: Tamsulosin HCL 0.4 MG CAPSULE PO (20:12)
[2024-06-21] MEDS: cloZAPine 100 MG TABLET 200 MG PO (20:12)
--- NOTE | 2024-06-22 09:09 | HO.PSYCHPN ---
Subjective Subjective Date of Service: 06/22/24 Reason For Visit: Catatonia Subjective Notes: Conditional Voluntary Medical Problems Affecting Mental Status: No Interim History: 59 yo ?off his medications clozapine now catatonic- very slowed thinking , staring or 1/2 lidded eyes- slow to respond but does when I wave hello 2nd time his arm moves as if to wave and he looks towards me but does not speak Medication Compliance: Yes Side effects from medications: No (looks a bit dehydrated- ) Attending Groups: Intermittent Review of Systems Acute medical concerns: Yes catatonic - may not be keeping up fluid intake Medical Review of Systems: unchanged Mental Status Exam Mental Status Exam Patient Appearance: Unkempt and Rigid Patient Orientation: Person and Place Level of Consciousness: Awake Patient Behavior: Dependent, Passive and Poor Eye Contact Mood Description: Flat Affect Description: Flat Patient Cognition Impaired: No Ability to Follow Directions: Poor Speech Pattern: Aphasic (with this provider) Thought Process: Slowed Thinking Thought Content: positive for Poverty of Content Abnormal Motor Activity Signs and Symptoms: Muscle Rigidity Judgement: Poor Diagnostics Vital Signs (24Hr): Vital Signs - 24 hr 06/21/24 20:00 Temperature 97.2 F Pulse Rate 87 Respiratory Rate 18 Blood Pressure 129/87 Pulse Oximetry 94 Oxygen Delivery Method Room Air BMI result Body Mass Index 21.8 Labs 06/19/24 22:59 06/20/24 19:51 Labs: Laboratory Results - last 48 hr 06/20/24 06/20/24 06/21/24 16:00 19:51 07:53 Sodium 139 Potassium 4.5 Chloride 109 H Carbon Dioxide 19 L Anion Gap 16 BUN 28 H Creatinine 1.42 H Estim Creat Clear Calc 56.4 Estimated GFR 51 Random Glucose 131 H Estimat Average Glucose 111 Hemoglobin A1c % 5.5 Calcium 9.5 Total Bilirubin 0.8 AST 25 ALT 14 Alkaline Phosphatase 53 Total Protein 7.4 Albumin 4.3 Triglycerides 64 Cholesterol 149 LDL Cholesterol, Calc 94 HDL Cholesterol 43 Urine Opiates Screen Not Detected Ur Buprenorphine Scrn Not Detected Ur Oxycodone Screen Not Detected Urine Methadone Screen Not Detected Urine Fentanyl Screen Not Detected Ur Barbiturates Screen Not Detected Ur Phencyclidine Scrn Not Detected Ur Amphetamines Screen Not Detected U Benzodiazepines Scrn POSITIVE H Urine Cocaine Screen Not Detected U Marijuana (THC) Screen Not Detected Medications Medications Current Medications Acetaminophen (Acetaminophen 325 Mg Tablet) 650 mg PO Q6H PRN PRN Reason: Headache/Pain, Scale 1-10 Al Hydroxide/Mg Hydroxide (Magnesium Hydrox/Alum Hydrox 30 Ml Oral.Susp) 30 ml PO Q6H PRN PRN Reason: Heartburn/Nausea Clozapine (Clozapine 100 Mg Tablet) 200 mg PO BEDTIME KRISTIN Last Admin: 06/21/24 20:12 Dose: 200 mg Lorazepam (Lorazepam 1 Mg Tablet) 2 mg PO Q8H PRN PRN Reason: catatonic sx Last Admin: 06/21/24 16:01 Dose: 2 mg Magnesium Hydroxide (Milk Of Magnesia 30 Ml Oral.Susp) 30 ml PO DAILY PRN PRN Reason: Constipation Tamsulosin HCl (Tamsulosin Hcl 0.4 Mg Capsule) 0.4 mg PO BEDTIME KRISTIN Last Admin: 06/21/24 20:12 Dose: 0.4 mg Trazodone HCl (Trazodone Hcl 50 Mg Tablet) 50 mg PO BEDTIME MRX1 PRN PRN Reason: Insomnia Allergies Allergies Allergy/AdvReac Type Severity Reaction Status Date / Time No Known Allergies [NKA] Allergy Unknown NONE Verified 06/19/24 20:43 Assessment & Plan Assessment & Plan (1) Schizoaffective disorder: Status: Acute Code(s): F25.9 - Schizoaffective disorder, unspecified (2) Catatonia: Status: Acute Code(s): F06.1 - Catatonic disorder due to known physiological condition Plan The patient is a 59-year-old male with a past history of schizoaffective disorder and catatonia who was readmitted again for relapse on catatonic symptoms even though that he had been fully compliant with antipsychotics, benzodiazepines and ECT. The patient had been receiving outpatient ECT and apparently in the last days he had been more hypoactive. He was assessed by the care team and transferring to this facility for psychiatric stabilization. Plan 1. Gather more collateral information. 2. Invoke healthcare proxy since the patient at this moment is catatonic unable to sign CV. 3. Referral for ECT. 4. Hospitalist follow-up. 5. Continue with Clozaril and other medications. 6. 15 minute checks. 06/22 patient admitted with inc catatonia despite medication and maintence ECT between weekly ECT declined from hypomovement to catatonic in period of 2 weeks- - now seems dehydrated with elevated bun/cr, will push fluids and check cpk, clozapine lvl possibly track po intake- - check urine- Informed Consent: further education needed Reason for continued inpatient stay Substantial Risk for: rapid decompensation and med/psych decompensation Time Spent With Patient Time: Total time managing care of this patient today ____ minutes.
[2024-06-22 11:46] VITALS: BP 139/84; PULSE 103; RESP 16; TEMP 36.1; O2SAT 100
[2024-06-22] MEDS: LORazepam 1 MG TABLET 2 MG PO (16:40)
[2024-06-22 20:00] VITALS: BP 129/80; PULSE 95; RESP 16; TEMP 36.6; O2SAT 97
[2024-06-22] MEDS: Tamsulosin HCL 0.4 MG CAPSULE PO (20:37)
[2024-06-22] MEDS: traZODone HCL 50 MG TABLET PO (20:37)
[2024-06-22] MEDS: cloZAPine 100 MG TABLET 200 MG PO (20:37)
[2024-06-23] MEDS: LORazepam 1 MG TABLET 2 MG PO ×2 (08:28→20:49)
[2024-06-23 08:34] VITALS: BP 158/81; PULSE 102; RESP 16; TEMP 36.3; O2SAT 98
--- NOTE | 2024-06-23 10:16 | HO.PSYCHPN ---
Subjective Subjective Date of Service: 06/23/24 Reason For Visit: Catatonia Subjective Notes: Conditional Voluntary Healthcare Proxy: Yes Guardianship: Yes Medical Problems Affecting Mental Status: No Interim History: 59 yo with catatonia minimal responses or movements, but in mileu- will have swallow eval done for diet consistency given degree of catatonia, nursing trying to keep up fluids for him Medication Compliance: Yes Side effects from medications: No Attending Groups: No Review of Systems checking clopazapine level check on swallowing ability Medical Review of Systems: unchanged Mental Status Exam Mental Status Exam Patient Appearance: Appropriate Patient Orientation: Person Level of Consciousness: Awake Patient Behavior: Dependent and Passive Mood Description: Flat Patient Cognition Impaired: No Ability to Follow Directions: Poor Speech Pattern: Aphasic Abnormal Motor Activity Signs and Symptoms: Psychomotor Retardation Judgement: Poor Diagnostics Vital Signs (24Hr): Vital Signs - 24 hr 06/22/24 11:46 06/22/24 20:00 06/23/24 08:34 Temperature 97.0 F 97.8 F 97.3 F Pulse Rate 103 H 95 102 H Respiratory Rate 16 16 16 Blood Pressure 139/84 129/80 158/81 H Pulse Oximetry 100 97 98 Oxygen Delivery Method Room Air Room Air Room Air BMI result Body Mass Index 21.8 Labs 06/19/24 22:59 06/20/24 19:51 Labs: Laboratory Results - last 48 hr 06/23/24 08:11 Total Creatine Kinase 62 Medications Medications Current Medications Acetaminophen (Acetaminophen 325 Mg Tablet) 650 mg PO Q6H PRN PRN Reason: Headache/Pain, Scale 1-10 Al Hydroxide/Mg Hydroxide (Magnesium Hydrox/Alum Hydrox 30 Ml Oral.Susp) 30 ml PO Q6H PRN PRN Reason: Heartburn/Nausea Clozapine (Clozapine 100 Mg Tablet) 200 mg PO BEDTIME KRISTIN Last Admin: 06/22/24 20:37 Dose: 200 mg Lorazepam (Lorazepam 1 Mg Tablet) 2 mg PO Q8H PRN PRN Reason: catatonic sx Last Admin: 06/23/24 08:28 Dose: 2 mg Magnesium Hydroxide (Milk Of Magnesia 30 Ml Oral.Susp) 30 ml PO DAILY PRN PRN Reason: Constipation Tamsulosin HCl (Tamsulosin Hcl 0.4 Mg Capsule) 0.4 mg PO BEDTIME KRISTIN Last Admin: 06/22/24 20:37 Dose: 0.4 mg Trazodone HCl (Trazodone Hcl 50 Mg Tablet) 50 mg PO BEDTIME MRX1 PRN PRN Reason: Insomnia Last Admin: 06/22/24 20:37 Dose: 50 mg Allergies Allergies Allergy/AdvReac Type Severity Reaction Status Date / Time No Known Allergies [NKA] Allergy Unknown NONE Verified 06/19/24 20:43 Assessment & Plan Assessment & Plan (1) Schizoaffective disorder: Status: Acute Code(s): F25.9 - Schizoaffective disorder, unspecified (2) Catatonia: Status: Acute Code(s): F06.1 - Catatonic disorder due to known physiological condition Plan The patient is a 59-year-old male with a past history of schizoaffective disorder and catatonia who was readmitted again for relapse on catatonic symptoms even though that he had been fully compliant with antipsychotics, benzodiazepines and ECT. The patient had been receiving outpatient ECT and apparently in the last days he had been more hypoactive. He was assessed by the care team and transferring to this facility for psychiatric stabilization. Plan 1. Gather more collateral information. 2. Invoke healthcare proxy since the patient at this moment is catatonic unable to sign CV. 3. Referral for ECT. 4. Hospitalist follow-up. 5. Continue with Clozaril and other medications. 6. 15 minute checks. 06/22 patient admitted with inc catatonia despite medication and maintence ECT between weekly ECT declined from hypomovement to catatonic in period of 2 weeks- - now seems dehydrated with elevated bun/cr, will push fluids and check cpk, clozapine lvl possibly track po intake- - check urine- 06/23/24 ordered swallow study- CTP likely to get ECT- Patient educated on: ECT Informed Consent: further education needed Reason for continued inpatient stay Substantial Risk for: inability to function, rapid decompensation and med/psych decompensation Time Spent With Patient Time: Total time managing care of this patient today ____ minutes.
[2024-06-23 19:13] LABS: Appearance Urine Clear; Color Urine Dark Yellow; Glucose Urine UA Negative (Negative); Leukocyte Esterase Urine Negative (Negative); Nitrite Urine Negative (Negative); PH 5.5 (5.0-9.0); Specific Gravity - Urine 1.025 (1.005-1.025); Urine Blood Negative (Negative); Urine Ketones 15 mg/dL (Negative); Urine Protein Trace mg/dL (Neg-Trace)
[2024-06-23 19:18] LABS: Bacteria Urine None Seen (None Seen); Hyaline Casts Urine 0-2 /LPF (0-2); RBC Urine 0-2 /HPF (0-2); Squamous Epithelial Cell Urine 0-2 /HPF (0-2); WBC Urine 0-5 /HPF (0-5)
[2024-06-23 20:00] VITALS: BP 130/77; PULSE 83; TEMP 36.2; O2SAT 96
[2024-06-23] MEDS: cloZAPine 100 MG TABLET 200 MG PO (20:49)
[2024-06-23] MEDS: traZODone HCL 50 MG TABLET PO (20:49)
[2024-06-23] MEDS: Tamsulosin HCL 0.4 MG CAPSULE PO (20:50)
--- NOTE | 2024-06-24 | EEG_ITS ---
This is a 16-channel EEG with an EKG lead. The patient is reported awake and drowsy during the tracing. Background EEG rhythm is 16 to 20 hertz, 5 to 20 microvolt posteriorly and lower amplitude fast anteriorly. Photic stimulation and hyperventilation were not performed. Cardiac lead did not reveal any significant abnormality. No sharp wave spikes or paroxysmal tendency noted. IMPRESSION: No significant abnormality noted on this EEG. MD ADRIÁN Cadena/ZULEIKA / [id number]
[2024-06-24 08:00] VITALS: BP 142/77; PULSE 89; RESP 16; TEMP 36.7; O2SAT 94
--- NOTE | 2024-06-24 14:20 | MHC.SL.SWA ---
Speech Pathologist Impression: Mild oropharyngeal dysphagia d/t catatonia Risk of Aspiration Due to: Neurological Condition Dysphasia Diet Status: Continue NDD1 with NTL, upgrade to allow water (thin liquid). Liquid Consistency and Strategies for Safe Swallow: Liquid Intake Recommendation: [place] Thick Liquid Intake Strategies: Small Sips Solid Food Consistency: Dietary Recommendations: Pureed (NDD1) Additional Modifications to Solid Foods: Recc water for hydration, no thickener but close monitoring Oral Medication Intake: Crushed with Puree Please contact the pharmacy regarding appropriate crushable or liquid drug formulations that are available whenever modified delivery is recommended. Compensatory Strategies and Precautions to be Taken for Safe Swallow: Sitting Upright (90 deg) Small Bites and Sips Alternate Liquids/Solids Rate of Ingestion Change Oral Check Supervision While Eating and Drinking for Safe Swallow: Total Assistance (1:1) Foods to Avoid: Mixed consistencies Swallowing Recommended Treatments: Compens. Strategy Educat. Recommendation for Speech: Inpatient Speech Therapy Comment: Pt tolerated tsps of puree and sips of NTL when fed by WIND UP WORKER with slow pacing and consistent verbal cues. WIND UP WORKER explained to pt reason for swallow eval and observations. MD present at end of evaluation. Pt remains on NDD1 with NTL for safety, WIND UP WORKER recc continued modification to diet pending improvement and permission for water without thckener to encourage more adequate hydration through intake of thins. Frequency/Duration: WIND UP WORKER to monitor tolerance and advance diet as indicated Date Range for Service Req: Timeline to reassess: Stretching Machine Operator Clinican/Clinical Fellow: No Supervisory Statement: I have reviewed and agree with the student/clinical fellow's documentation: N/A Speech Language Pathologist: Francia Pink M.S., [facility]-[employer]
--- NOTE | 2024-06-24 14:30 | P.PNPSI_ITS ---
Subjective Subjective Date of Service: 06/17/24 Reason For Visit: Catatonia Subjective Notes: Conditional Voluntary Healthcare Proxy: Yes Interim History: Patient seen psychiatric follow-up he remains catatonic minimally engaged was seen by speech for a swallowing eval. They did have some recommendations. Patient's father's the healthcare proxy has generally been skeptical of ECT patient on clozapine has had repeated episodes of catatonia. Patient needs help assistance with feeding Mostly mute minimally responsive to the environment Medication Compliance: Yes Mental Status Exam Mental Status Exam Patient Appearance: Appropriate Patient Orientation: Person Level of Consciousness: Awake and Drowsy Patient Behavior: Dependent and Passive Mood Description: Flat Patient Cognition Impaired: No Ability to Follow Directions: Poor Speech Pattern: Mumbled and No Speech Abnormal Motor Activity Signs and Symptoms: Psychomotor Retardation Judgement: Poor Judgement and Insight: Patient will respond at times to his name needs assist to help with any food intake or drinking Diagnostics Vital Signs (24Hr): Vital Signs - 24 hr 06/23/24 20:00 06/24/24 08:00 Temperature 97.1 F 98.0 F Pulse Rate 83 89 Respiratory Rate 16 Blood Pressure 130/77 142/77 H Pulse Oximetry 96 94 Oxygen Delivery Method Room Air Room Air BMI result Body Mass Index 21.8 Labs 06/19/24 22:59 06/20/24 19:51 Labs: Laboratory Results - last 48 hr 06/23/24 06/23/24 08:11 19:04 Total Creatine Kinase 62 Urine Color Dark Yellow Urine Appearance Clear Urine pH 5.5 Ur Specific [place] 1.025 Urine Protein Trace Urine Glucose (UA) Negative Urine Ketones 15 Urine Blood Negative Urine Nitrite Negative Ur Leukocyte Esterase Negative Urine RBC 0-2 Urine WBC 0-5 Ur Squamous Epith Cells 0-2 Urine Bacteria None Seen Hyaline Casts 0-2 Medications Medications Current Medications Acetaminophen (Acetaminophen 325 Mg Tablet) 650 mg PO Q6H PRN PRN Reason: Headache/Pain, Scale 1-10 Al Hydroxide/Mg Hydroxide (Magnesium Hydrox/Alum Hydrox 30 Ml Oral.Susp) 30 ml PO Q6H PRN PRN Reason: Heartburn/Nausea Clozapine (Clozapine 100 Mg Tablet) 200 mg PO BEDTIME KRISTIN Last Admin: 06/23/24 20:49 Dose: 200 mg Lorazepam (Lorazepam 1 Mg Tablet) 2 mg PO Q8H PRN PRN Reason: catatonic sx Last Admin: 06/23/24 20:49 Dose: 2 mg Magnesium Hydroxide (Milk Of Magnesia 30 Ml Oral.Susp) 30 ml PO DAILY PRN PRN Reason: Constipation Memantine (Memantine Hcl 5 Mg Tablet) 5 mg PO DAILY KRISTIN Tamsulosin HCl (Tamsulosin Hcl 0.4 Mg Capsule) 0.4 mg PO BEDTIME KRISTIN Last Admin: 06/23/24 20:50 Dose: 0.4 mg Trazodone HCl (Trazodone Hcl 50 Mg Tablet) 50 mg PO BEDTIME MRX1 PRN PRN Reason: Insomnia Last Admin: 06/23/24 20:49 Dose: 50 mg Allergies Allergies Allergy/AdvReac Type Severity Reaction Status Date / Time No Known Allergies [NKA] Allergy Unknown NONE Verified 06/19/24 20:43 Assessment & Plan Assessment & Plan (1) Schizoaffective disorder: Status: Acute Code(s): F25.9 - Schizoaffective disorder, unspecified (2) Catatonia: Status: Acute Code(s): F06.1 - Catatonic disorder due to known physiological condition Plan The patient is a 59-year-old male with a past history of schizoaffective disorder and catatonia who was readmitted again for relapse on catatonic symptoms even though that he had been fully compliant with antipsychotics, benzodiazepines and ECT. The patient had been receiving outpatient ECT and apparently in the last days he had been more hypoactive. He was assessed by the care team and transferring to this facility for psychiatric stabilization. Plan 1. Gather more collateral information. 2. Invoke healthcare proxy since the patient at this moment is catatonic unable to sign CV. 3. Referral for ECT. 4. Hospitalist follow-up. 5. Continue with Clozaril and other medications. 6. 15 minute checks. 06/22 patient admitted with inc catatonia despite medication and maintence ECT between weekly ECT declined from hypomovement to catatonic in period of 2 weeks- - now seems dehydrated with elevated bun/cr, will push fluids and check cpk, clozapine lvl possibly track po intake- - check urine- 06/23/24 ordered swallow study- CTP likely to get ECT- 06/24/2024 Will trying get father's consent who is healthcare proxy to restart ECT Namenda started as off-label treatment for catatonia Informed Consent: further education needed Reason for continued inpatient stay Substantial Risk for: inability to function, rapid decompensation and med/psych decompensation Time Spent With Patient Time: Total time managing care of this patient today _30___ minutes.
[2024-06-24] MEDS: Memantine HCl 5 MG TABLET PO (15:13)
[2024-06-24] MEDS: LORazepam 1 MG TABLET 2 MG PO (15:14)
[2024-06-24 19:33] VITALS: BP 130/71; PULSE 95; RESP 15; TEMP 36.2; O2SAT 96
[2024-06-24] MEDS: cloZAPine 100 MG TABLET 200 MG PO (19:35)
[2024-06-24] MEDS: Tamsulosin HCL 0.4 MG CAPSULE PO (19:35)
--- NOTE | 2024-06-24 23:16 | PC.NURSE ---
Patient voided once in bathroom before bed with staff assist.
[2024-06-24] MEDS: Acetaminophen 325 MG TABLET 650 MG PO (23:26)
[2024-06-25 08:24] VITALS: BP 124/74; PULSE 93; RESP 16; TEMP 36.9; O2SAT 93
[2024-06-25 08:34] LABS: MANUAL DIFF FLAG NO
[2024-06-25 08:35] LABS: Basophils Percent Auto 0.1 % (0-2); Hematocrit 41.8 % (42.0-52.0); Hemoglobin 13.6 g/dl (14.0-18.0); Imm Gran Abs Auto 0.04 X10*3/uL (0.00-0.03); Imm Gran Pct Auto 0.5 % (0.0-0.4); Lymphocytes Absolute Auto 1.3 X10*3/uL (1.2-4.9); Lymphocytes Percent Auto 15.5 % (20-40); Mean Corpuscular HGB Conc 32.5 g/dl (31.0-36.0); Mean Corpuscular Hemoglobin 28.3 pg (27.0-33.0); Mean Corpuscular Volume 86.9 fL (80.0-98.0); Mean Platelet Volume 11.6 fL (9.4-12.4); Monocytes Absolute Auto 0.6 X10*3/uL (0.1-1.2); Monocytes Percent Auto 7.2 % (2-11); Neutrophils Absolute Auto 6.5 x10*3/uL (2.0-8.3); Neutrophils Percent Auto 76.7 % (45-73); Platelet Count 164 X10*3/uL (160-400); Red Blood Count 4.81 X10*6/uL (4.60-5.80); Red Cell Distribution Width 14.3 % (11.0-16.0); White Blood Count 8.5 X10*3/uL (4.8-10.8)
[2024-06-25] MEDS: Memantine HCl 5 MG TABLET PO (08:35)
[2024-06-25] MEDS: LORazepam 1 MG TABLET 2 MG PO (08:35)
[2024-06-25 08:53] LABS: Alanine Aminotransferase 9 U/L (0-40); Albumin Level 4.1 g/dL (3.5-5.0); Alkaline Phosphatase 48 U/L (39-117); Anion Gap 11 (12-20); Aspartate Amino Transferase 12 U/L (5-37); Bilirubin Total 0.8 mg/dL (0.0-1.0); Blood Urea Nitrogen 37 mg/dL (9-16); Calcium 9.3 mg/dL (8.4-10.2); Carbon Dioxide 25 mmol/L (22-29); Chloride 113 mmol/L (96-108); Creatinine Clr Calc Pharmacy 60.2; Estimated Glomerular Filt Rate 55; Glucose Fasting 124 mg/dL (60-99); Sodium 145 mmol/L (135-145)
--- NOTE | 2024-06-25 12:34 | HO.ECT-CONS ---
History of Present Illness Data of Consult Service Date: 06/25/24 Requesting physician: Steven Huerta Primary Care Provider: Unknown Physician HPI Reason for consult: ect evaluation 59 year old male with history of hypertension, [id number] type 2 diabetes, schizoaffective disorder, and depression with catatonia admitted to Psychiatry with consult placed to hospitalist service for ECT evaluation. The patient is lying in bed catatonic, briefly makes eye contact but unable to provide history, mostly nonverbal though mumbles. Per nursing staff he has not appeared short of breath. He is not edematous nor does he appear to be in pain. NO syncope. He has no known history of seizure disorder, CHF, CAD, or dysrhythmia. He has undergone ECT in the past with good effect. EKG on 06/20 showed normal sinus rhythm, rate 81, no ischemic changes. QTc 436. Sinus rhythm replacing atrial flutter, but do not see any evidence on prior EKGs of flutter. Reviewed with cardiology who agrees. Labs today reveal a chronic normocytic anemia with stable H&H. Renal function baseline, electrolyte levels normal except for chloride 111. Hepatic function within normal limits. Per Psychiatry, the patient has not been eating or drinking much today, per RN has consumed about 10 mL of water. Review of Systems Review of Systems: Yes Unobtainable due to mental status PMFSH Medical History Hospital discharge follow-up Mild sleep apnea Tardive dyskinesia Nocturnal hypoxia Routine medical exam Joint inflammation of right hand and wrist Status post fall Adult general medical exam Screening for colon cancer Screening for prostate cancer Cough BPH (benign prostatic hyperplasia) Family History Mother Cancer Father Kidney agenesis Surgical History History of colonoscopy (~06/15/21) History of tooth extraction History of root canal procedure Social History Household Members: None Housing: Apartment Are you a primary attending ambulatory care to a significant other at home: No Do you presently have visiting nurse or other home services: Yes Unable to assess alcohol history related to: Unable to respond Alcohol intake: former Patient Tobacco Use Status: Never used Tobacco Smoked in Last 30 Days: No e-Cigarette/Vaping Use: Never Used Patient Interested in Nicotine Replacement: No (n/a) Patient Given Instructions on How to Stop Smoking: No (n/a) Second Hand Smoke Exposure: No Use of substances other than those prescribed or required for medical reasons: Unable to respond Substance Use Type Other:: unable to answer due to mental status. Last Used Substance Other:: unable to answer due to mental status. Currently Displaying Signs/Symptoms of Drug Intoxication Withdrawal: No Other Past Substance Use Problem:: unable to answer due to mental status. Spiritual Healthcare Practices: unable to answer due to mental status. Alevism Healthcare Practices: unable to answer due to mental status. Cultural Healthcare Practices: unable to answer due to mental status. Advance Directives: No Advance Directives Information Provided: No Do you have thoughts of harming others: None Do you have a plan to hurt others: No Plan Recently lost weight without trying: No Eating poorly because of decreased appetite: No Nutrition Risks: No Nutritional Risk Poor oral hygiene: No service: No Current occupational status: employed Sexual orientation: Straight/Heterosexual Cognitive needs: No Hearing needs: No Vision needs: No Meds Allergies Allergy/AdvReac Type Severity Reaction Status Date / Time No Known Allergies [NKA] Allergy Unknown NONE Verified 06/19/24 20:43 Active Medications: Current Medications Acetaminophen (Acetaminophen 325 Mg Tablet) 650 mg PO Q6H PRN PRN Reason: Headache/Pain, Scale 1-10 Last Admin: 06/24/24 23:26 Dose: 650 mg Al Hydroxide/Mg Hydroxide (Magnesium Hydrox/Alum Hydrox 30 Ml Oral.Susp) 30 ml PO Q6H PRN PRN Reason: Heartburn/Nausea Clozapine (Clozapine 100 Mg Tablet) 200 mg PO BEDTIME KRISTIN Last Admin: 06/24/24 19:35 Dose: 200 mg Lorazepam (Lorazepam 1 Mg Tablet) 2 mg PO Q8H PRN PRN Reason: catatonic sx Last Admin: 06/25/24 08:35 Dose: 2 mg Magnesium Hydroxide (Milk Of Magnesia 30 Ml Oral.Susp) 30 ml PO DAILY PRN PRN Reason: Constipation Memantine (Memantine Hcl 5 Mg Tablet) 5 mg PO DAILY [facility] [place] Last Admin: 06/25/24 08:35 Dose: 5 mg Tamsulosin HCl (Tamsulosin Hcl 0.4 Mg Capsule) 0.4 mg PO BEDTIME KRISTIN Last Admin: 06/24/24 19:35 Dose: 0.4 mg Trazodone HCl (Trazodone Hcl 50 Mg Tablet) 50 mg PO BEDTIME MRX1 PRN PRN Reason: Insomnia Last Admin: 06/23/24 20:49 Dose: 50 mg Physical Exam Vital Signs and Narrative: Vital Signs: Last Vital Signs Temp 98.5 F 06/25/24 08:24 Pulse 93 06/25/24 08:24 Resp 16 06/25/24 08:24 BP 124/74 06/25/24 08:24 Pulse Ox 93 06/25/24 08:24 O2 Del Method Room Air 06/25/24 08:24 BMI result Body Mass Index 21.8 Constitutional - Awake but catatonic Cardiovascular - S1S2, RRR, No edema Respiratory - Normal lung expansion, Normal respiratory effort, No respiratory distress, CTA bilaterally Unable to assess further neuro exam but pupils constricted and eyes appear to track appropriately Results Labs 06/25/24 07:34 06/25/24 07:34 Labs: Laboratory Results - last 24 hr 06/25/24 07:34 MCV 86.9 MCH 28.3 MCHC 32.5 RDW 14.3 Plt Count 164 MPV 11.6 Immature Gran % (Auto) 0.5 H Neut % (Auto) 76.7 H Lymph % (Auto) 15.5 L [place] % (Auto) 7.2 Eos % (Auto) 0.0 Baso % (Auto) 0.1 Lymph # (Auto) 1.3 [place] # (Auto) 0.6 Eos # (Auto) 0.0 Baso # (Auto) 0.0 Abs Immat Gran (auto) 0.04 H Absolute Neuts (auto) 6.5 Absolute Nucleated RBC 0.000 Nucleated RBC % (auto) 0.0 Anion Gap 11 L Estim Creat Clear Calc 60.2 Estimated GFR 55 Fasting Glucose 124 H Calcium 9.3 Total Bilirubin 0.8 AST 12 ALT 9 Alkaline Phosphatase 48 Total Protein 7.0 Albumin 4.1 Assessment and Plan (1) Pre-op evaluation: Status: Resolved Plan 59 year old male with history of hypertension, [id number] type 2 diabetes, schizoaffective disorder, and depression with catatonia admitted to Psychiatry with consult placed to hospitalist service for ECT evaluation. Catatonia Pt with previous well tolerated ECTs. NO history of seizures, chf, cad. No evidence of distress, lungs clear, Heart RRR, no edema. Unfortunately unable to ascertain history/ROS from patient, reviewed with nursing staff EKG reassuring without any dysrhythmia and QTC is reassuring RCRI score 0. At this time, there is no medical contraindication that should preclude patient from undergoing ECT based on available information Give 1L IV LR @500ml/hr given poor PO intake. Consider additional IVF if needed Thank you for allowing me to participate in this consult. Signing off at this time. Please do not hesitate to call for further questions or for any acute medical issues
--- NOTE | 2024-06-25 13:39 | P.PNPSI_ITS ---
Subjective Subjective Date of Service: 06/25/24 Reason For Visit: Catatonia Subjective Notes: Conditional Voluntary Healthcare Proxy: Yes (father) Interim History: The patient is a 59-year-old male history of catatonia. Case reviewed with treatment team chart reviewed had discussion with patient's father regarding his condition risks of catatonia recommendation of ECT which the patient's father approved of and to touch base after the 1st 2 treatments. Reviewed with father off-label use of Namenda and starting IV fluids secondary to volume depletion Medication Compliance: Yes Attending Groups: No Review of Systems Acute medical concerns: Yes Dehydration problems with urination Medical Review of Systems: unchanged Mental Status Exam Mental Status Exam Narrative: Patient is seen sitting in a wheelchair. He does open his eyes eventually response to his name he is seen taking in small amounts of fluid and a tsp nonverbal does open his eyes and briefly become more alert does not seem in distress not overly agitated significant psychomotor retardation intermittently follows simple 1 step command marked latency unable to assess regarding other cognitive issues hallucinations or thoughts of harm to self or others superficially cooperative with feeding not in any obvious respiratory distress Diagnostics Vital Signs (24Hr): Vital Signs - 24 hr 06/24/24 19:33 06/25/24 08:24 Temperature 97.1 F 98.5 F Pulse Rate 95 93 Respiratory Rate 15 16 Blood Pressure 130/71 124/74 Pulse Oximetry 96 93 Oxygen Delivery Method Room Air Room Air BMI result Body Mass Index 21.8 Labs 06/25/24 07:34 06/25/24 07:34 Labs: Laboratory Results - last 48 hr 06/23/24 06/25/24 19:04 07:34 WBC 8.5 RBC 4.81 Hgb 13.6 L Hct 41.8 L MCV 86.9 MCH 28.3 MCHC 32.5 RDW 14.3 Plt Count 164 MPV 11.6 Immature Gran % (Auto) 0.5 H Neut % (Auto) 76.7 H Lymph % (Auto) 15.5 L [place] % (Auto) 7.2 Eos % (Auto) 0.0 Baso % (Auto) 0.1 Lymph # (Auto) 1.3 [place] # (Auto) 0.6 Eos # (Auto) 0.0 Baso # (Auto) 0.0 Abs Immat Gran (auto) 0.04 H Absolute Neuts (auto) 6.5 Absolute Nucleated RBC 0.000 Nucleated RBC % (auto) 0.0 Sodium 145 Potassium 4.0 Chloride 113 H Carbon Dioxide 25 Anion Gap 11 L BUN 37 H Creatinine 1.33 Estim Creat Clear Calc 60.2 Estimated GFR 55 Fasting Glucose 124 H Calcium 9.3 Total Bilirubin 0.8 AST 12 ALT 9 Alkaline Phosphatase 48 Total Protein 7.0 Albumin 4.1 Urine Color Dark Yellow Urine Appearance Clear Urine pH 5.5 Ur Specific [place] 1.025 Urine Protein Trace Urine Glucose (UA) Negative Urine Ketones 15 Urine Blood Negative Urine Nitrite Negative Ur Leukocyte Esterase Negative Urine RBC 0-2 Urine WBC 0-5 Ur Squamous Epith Cells 0-2 Urine Bacteria None Seen Hyaline Casts 0-2 Medications Medications Current Medications Acetaminophen (Acetaminophen 325 Mg Tablet) 650 mg PO Q6H PRN PRN Reason: Headache/Pain, Scale 1-10 Last Admin: 06/24/24 23:26 Dose: 650 mg Al Hydroxide/Mg Hydroxide (Magnesium Hydrox/Alum Hydrox 30 Ml Oral.Susp) 30 ml PO Q6H PRN PRN Reason: Heartburn/Nausea Clozapine (Clozapine 100 Mg Tablet) 200 mg PO BEDTIME [facility] Last Admin: 06/24/24 19:35 Dose: 200 mg Lactated Ringer's (Lr) 1,000 mls @ 100 mls/hr IVCONT .Q10H KRISTIN Lorazepam (Lorazepam 1 Mg Tablet) 2 mg PO Q8H PRN PRN Reason: catatonic sx Last Admin: 06/25/24 08:35 Dose: 2 mg Magnesium Hydroxide (Milk Of Magnesia 30 Ml Oral.Susp) 30 ml PO DAILY PRN PRN Reason: Constipation Memantine (Memantine Hcl 5 Mg Tablet) 5 mg PO DAILY [facility] Last Admin: 06/25/24 08:35 Dose: 5 mg Sodium Chloride (0.9 % Sodium Chloride Flush 3 Ml Syringe) 3 ml IVFLUSH QSHIFT [facility] Tamsulosin HCl (Tamsulosin Hcl 0.4 Mg Capsule) 0.4 mg PO BEDTIME [facility] Last Admin: 06/24/24 19:35 Dose: 0.4 mg Trazodone HCl (Trazodone Hcl 50 Mg Tablet) 50 mg PO BEDTIME MRX1 PRN PRN Reason: Insomnia Last Admin: 06/23/24 20:49 Dose: 50 mg Allergies Allergies Allergy/AdvReac Type Severity Reaction Status Date / Time No Known Allergies [NKA] Allergy Unknown NONE Verified 06/19/24 20:43 Assessment & Plan Assessment & Plan (1) Schizoaffective disorder: Status: Acute Code(s): F25.9 - Schizoaffective disorder, unspecified (2) Catatonia: Status: Acute Code(s): F06.1 - Catatonic disorder due to known physiological condition Assessment and Plan: IV fluid replacement may help with alertness energy elevated BUN optimize preoperatively for ECT Plan The patient is a 59-year-old male with a past history of schizoaffective disorder and catatonia who was readmitted again for relapse on catatonic symptoms even though that he had been fully compliant with antipsychotics, benzodiazepines and ECT. The patient had been receiving outpatient ECT and apparently in the last days he had been more hypoactive. He was assessed by the care team and transferring to this facility for psychiatric stabilization. Plan 1. Gather more collateral information. 2. Invoke healthcare proxy since the patient at this moment is catatonic unable to sign CV. 3. Referral for ECT. 4. Hospitalist follow-up. 5. Continue with Clozaril and other medications. 6. 15 minute checks. 06/22 patient admitted with inc catatonia despite medication and maintence ECT between weekly ECT declined from hypomovement to catatonic in period of 2 weeks- - now seems dehydrated with elevated bun/cr, will push fluids and check cpk, clozapine lvl possibly track po intake- - check urine- 06/23/24 ordered swallow study- CTP likely to get ECT- 06/24/2024 Will trying get father's consent who is healthcare proxy to restart ECT Namenda started as off-label treatment for catatonia 06/25/24 Spoke with patient's father who did give consent to ECT and intravenous fluids Ringer's lactate ordered for intravenous replacement 100 cc an hour Patient will be seen by hospitalist service for a med eval pre ECT continue clozapine Reason for continued inpatient stay Substantial Risk for: inability to function, rapid decompensation and med/psych decompensation Time Spent With Patient Time: Total time managing care of this patient today ____ minutes.
[2024-06-25] MEDS: Lactated Ringers 1,000 ML 100 ML IVCONT ×2 (15:02→19:48)
[2024-06-25] MEDS: cloZAPine 100 MG TABLET 200 MG PO (19:59)
[2024-06-25] MEDS: Tamsulosin HCL 0.4 MG CAPSULE PO (19:59)
[2024-06-25 20:00] VITALS: BP 126/68; PULSE 82; RESP 20; TEMP 37.1; O2SAT 95
[2024-06-26] VITALS (13 sets, daily range): BP systolic 122–140; BP diastolic 66–79; PULSE 80–93; RESP 16–22; TEMP 36.2–36.9; O2SAT 92–100
[2024-06-26] MEDS: 0.9 % Sodium Chloride Flush 3 ML SYRINGE IVFLUSH (00:15)
[2024-06-26] MEDS: Lactated Ringers 1,000 ML 50 ML IVCONT (07:05)
--- NOTE | 2024-06-26 07:28 | MHC.SHP ---
Pre-Procedural Eval Section A - 24 Hr Update-Section A only Date of Service: 06/26/24 The patient is an INPATIENT: Yes Changes since office visit: Yes Changes in Medication; No Cold of Flu in the past 2 weeks, No New Medical Problems and No Patient answered all questions The patient has been examined within 24 hours of the surgical procedure. The History & Physical has been completed within 30 days and I have reviewed it.: Yes Section B - Complete if H&P > 30 days Chief Complaint: Catatonia Allergies: Allergies Allergy/AdvReac Type Severity Reaction Status Date / Time No Known Allergies [NKA] Allergy Unknown NONE Verified 06/19/24 20:43 Plan I have reviewed the history and physical and performed a pertinent physical examination on my patient. No changes have occurred unless specified. Time Spent With Patient Time: Total time managing care of this patient today ____ minutes.
--- NOTE | 2024-06-26 07:50 | HO.ECTPROC ---
ECT Procedure Note Diagnosis/Treatment Date of Service: 06/26/24 Diagnosis: Catatonia Previous ECT Date: 07/15/24 Current Treatment Number: 1 Treatment: Series (1 new series vs continuation) Interval Clinical Notes: pt has full catatonia sx not taking in enough fluids given iv hydration use flumazenil next tx lorazepam 2 mg iv post Time: Total time managing care of this patient today30 ____ minutes. ECT Settings Device: THYMATRON DGx Electrode Placement: Bitemporal Program/Pulse Width: 0.50 Energy Percent: 100 Seizure Duration By EEG (in seconds): 19 Airway Management Airway Management: Bag Mask Ventilation Treatment Recommendations Notes: use flumazenil next tx Pt Tolerated Procedure w/o Issue: Yes
[2024-06-26] MEDS: LORazepam 2 MG/ML VIAL IVPUSH (07:51)
--- NOTE | 2024-06-26 09:10 | P.PNPSI_ITS ---
Subjective Subjective Date of Service: 06/26/24 Reason For Visit: Catatonia Subjective Notes: Conditional Voluntary Healthcare Proxy: Yes Interim History: pt had ect today was lethargic post ect ? rll infiltrate was given iv fluids hospitalist consulted Mental Status Exam Mental Status Exam Narrative: Pt lying in bed He is nonverbal does open his eyes briefly mumbling inchorently Diagnostics Vital Signs (24Hr): Vital Signs - 24 hr 06/25/24 20:00 06/26/24 05:56 06/26/24 06:44 Temperature 98.7 F 97.5 F 97.9 F Pulse Rate 82 86 87 Respiratory Rate 20 20 18 Blood Pressure 126/68 124/77 134/75 Pulse Oximetry 95 98 94 Oxygen Delivery Method Room Air Room Air Room Air Oxygen Flow Rate 06/26/24 07:54 06/26/24 07:55 06/26/24 08:00 Temperature 98.5 F Pulse Rate 86 92 91 Respiratory Rate 16 16 16 Blood Pressure 139/79 133/70 130/71 Pulse Oximetry 100 100 100 Oxygen Delivery Method Nasal Cannula with ETCO2 Nasal Cannula with ETCO2 Nasal Cannula with ETCO2 Oxygen Flow Rate 4 4 4 06/26/24 08:05 06/26/24 08:20 06/26/24 08:35 Temperature Pulse Rate 91 93 93 Respiratory Rate 16 16 16 Blood Pressure 131/77 137/77 126/74 Pulse Oximetry 100 100 94 Oxygen Delivery Method Nasal Cannula with ETCO2 Nasal Cannula with ETCO2 Nasal Cannula Oxygen Flow Rate 4 4 4 06/26/24 08:50 Temperature 97.3 F Pulse Rate 93 Respiratory Rate 22 H Blood Pressure 140/70 H Pulse Oximetry 92 Oxygen Delivery Method Nasal Cannula Oxygen Flow Rate 2 BMI result Body Mass Index 21.8 Labs 06/25/24 07:34 06/26/24 12:04 Labs: Laboratory Results - last 48 hr 06/25/24 07:34 WBC 8.5 RBC 4.81 Hgb 13.6 L Hct 41.8 L MCV 86.9 MCH 28.3 MCHC 32.5 RDW 14.3 Plt Count 164 MPV 11.6 Immature Gran % (Auto) 0.5 H Neut % (Auto) 76.7 H Lymph % (Auto) 15.5 L Millard % (Auto) 7.2 Eos % (Auto) 0.0 Baso % (Auto) 0.1 Lymph # (Auto) 1.3 Millard # (Auto) 0.6 Eos # (Auto) 0.0 Baso # (Auto) 0.0 Abs Immat Gran (auto) 0.04 H Absolute Neuts (auto) 6.5 Absolute Nucleated RBC 0.000 Nucleated RBC % (auto) 0.0 Sodium 145 Potassium 4.0 Chloride 113 H Carbon Dioxide 25 Anion Gap 11 L BUN 37 H Creatinine 1.33 Estim Creat Clear Calc 60.2 Estimated GFR 55 Fasting Glucose 124 H Calcium 9.3 Total Bilirubin 0.8 AST 12 ALT 9 Alkaline Phosphatase 48 Total Protein 7.0 Albumin 4.1 Medications Medications Current Medications Acetaminophen (Acetaminophen 325 Mg Tablet) 650 mg PO Q6H PRN PRN Reason: Headache/Pain, Scale 1-10 Last Admin: 06/24/24 23:26 Dose: 650 mg Al Hydroxide/Mg Hydroxide (Magnesium Hydrox/Alum Hydrox 30 Ml Oral.Susp) 30 ml PO Q6H PRN PRN Reason: Heartburn/Nausea Clozapine (Clozapine 100 Mg Tablet) 200 mg PO BEDTIME [facility] Last Admin: 06/25/24 19:59 Dose: 200 mg Lactated Ringer's (Lr) 1,000 mls @ 150 mls/hr IVCONT .Q6H40M [facility] Last Admin: 06/26/24 07:05 Dose: 50 mls/hr Lactated Ringer's (Lr) 1,000 mls @ 150 mls/hr IVCONT .Q6H40M [facility] Magnesium Hydroxide (Milk Of Magnesia 30 Ml Oral.Susp) 30 ml PO DAILY PRN PRN Reason: Constipation Memantine (Memantine Hcl 5 Mg Tablet) 5 mg PO BID [facility] Naloxone HCl (Naloxone Hcl 0.4 Mg/Ml Vial) 0.04 mg IVPUSH Q5M PRN PRN Reason: Excessive sedation or RR < 8 Sodium Chloride (0.9 % Sodium Chloride Flush 3 Ml Syringe) 3 ml IVFLUSH QSHIFT [facility] Last Admin: 06/26/24 00:15 Dose: 3 ml Sodium Chloride (0.9 % Sodium Chloride Flush 3 Ml Syringe) 3 ml IVFLUSH QSHIFT [facility] Tamsulosin HCl (Tamsulosin Hcl 0.4 Mg Capsule) 0.4 mg PO BEDTIME [facility] Last Admin: 06/25/24 19:59 Dose: 0.4 mg Trazodone HCl (Trazodone Hcl 50 Mg Tablet) 50 mg PO BEDTIME MRX1 PRN PRN Reason: Insomnia Last Admin: 06/23/24 20:49 Dose: 50 mg Allergies Allergies Allergy/AdvReac Type Severity Reaction Status Date / Time No Known Allergies [NKA] Allergy Unknown NONE Verified 06/19/24 20:43 Assessment & Plan Assessment & Plan (1) Schizoaffective disorder, depressive type: Status: Acute Code(s): F25.1 - Schizoaffective disorder, depressive type (2) Catatonia: Status: Acute Code(s): F06.1 - Catatonic disorder due to known physiological condition Plan 59 year old male with history of hypertension, nep-hpmedgh-ghzpxpaey type 2 diabetes, schizoaffective disorder, and depression with catatonia admitted to Psychiatry with consult placed to hospitalist service for ECT evaluation. Catatonia Pt with previous well tolerated ECTs. NO history of seizures, chf, cad. No evidence of distress, lungs clear, Heart RRR, no edema. Unfortunately unable to ascertain history/ROS from patient, reviewed with nursing staff EKG reassuring without any dysrhythmia and QTC is reassuring RCRI score 0. At this time, there is no medical contraindication that should preclude patient from undergoing ECT based on available information Give 1L IV LR @500ml/hr given poor PO intake. Consider additional IVF if needed Thank you for allowing me to participate in this consult. Signing off at this time. Please do not hesitate to call for further questions or for any acute medical issues 06/27/23 Pt medically cleared 06/25 was lethargic post ect but had lorazepam for catatonia given fluids had ? pneumonia on xray po2 ok on room air see hospitalist consu;t prophlatic antibiotics Reason for continued inpatient stay Substantial Risk for: inability to function, rapid decompensation and med/psych decompensation Time Spent With Patient Time: Total time managing care of this patient today ____ minutes.
[2024-06-26] MEDS: Enoxaparin Sodium 40 MG/0.4 ML SYRINGE SUBCUT (12:18)
[2024-06-26 12:30] LABS: Anion Gap 11 (12-20); Blood Urea Nitrogen 29 mg/dL (9-16); Calcium 8.9 mg/dL (8.4-10.2); Carbon Dioxide 25 mmol/L (22-29); Chloride 115 mmol/L (96-108); Creatinine Clr Calc Pharmacy 72.1; Estimated Glomerular Filt Rate > 60; Glucose Random 107 mg/dL (60-115); Potassium 4.4 mmol/L (3.3-5.1); Sodium 147 mmol/L (135-145)
--- NOTE | 2024-06-26 12:50 | PM.EVENT ---
Event Note Date of Service: 06/26/24 Event Note: Pt is a 59-year-old male admitted to psych for worsening catatonia with that medical consult for postop hypoxia. Underwent ECT earlier this morning after which received Ativan 2 mg IV as part of postop treatment. Pt was noted to be hypoxic as low as 86% on RA post-ECT and unresponsive. Pt has underwent ECT multiple times in the past without incident and usually responds well to treatment with decreased catatonia. Pt seen and evaluated in his room where he is resting comfortably in bed. Pt opens eyes eyes to painful stimuli but not answering questions or following commands. Pupils constricted, similar to physical exam on 06/25/2024. Currently satting at 96% on RA and with BP stable and WNL. Chemistry significant for mildly elevated sodium of 147, likely secondary to IVF infusion and not yet having voided. Renal function WNL. Notified by nursing that pt awoke soon after leaving the room immediately voided a large amount. Pt also is now awake, alert, and speaking and less catatonic than prior to ECT. Will order CXR for possible aspiration. Otherwise currently no indication for additional workup or treatment. Time Spent With Patient Time: Total time managing care of this patient today ____ minutes.
[2024-06-26] MEDS: NACL IVCONT ×2 (15:19→19:23)
[2024-06-26] MEDS: DEXTROSE IVCONT ×2 (15:19→19:23)
--- NOTE | 2024-06-26 16:04 | PC.NURSE ---
Pt returned from ECT in an over sedated state. His O2 sat ranged between 93%-84% on room air. Labs, hospitalist consult and pulmonary xray ordered. Pt started on Augmentin per hospitalist and pneumonia.
--- NOTE | 2024-06-26 18:54 | PC.NURSE ---
IV abx were started and then tissue became infiltrated. IV was stopped and nursing correctional food service supervisor was called for assistance with a new IV site.
[2024-06-26] MEDS: Acetaminophen 325 MG TABLET 650 MG PO (20:53)
[2024-06-26] MEDS: cloZAPine 100 MG TABLET 200 MG PO (20:53)
[2024-06-26] MEDS: traZODone HCL 50 MG TABLET PO (20:53)
[2024-06-26] MEDS: Memantine HCl 5 MG TABLET PO (20:53)
[2024-06-26] MEDS: Tamsulosin HCL 0.4 MG CAPSULE PO (20:54)
[2024-06-26] MEDS: Piperacillin Sodium/Tazobactam 4.5 GM in 0.9 % Sodium Chloride 100 ML IV (21:55)
[2024-06-27] MEDS: 0.9 % Sodium Chloride Flush 3 ML SYRINGE IVFLUSH ×3 (01:22→15:17)
[2024-06-27] MEDS: Piperacillin Sodium/Tazobactam 4.5 GM in 0.9 % Sodium Chloride 100 ML IV ×4 (05:47→17:59)
[2024-06-27 05:54] LABS: Clozapine (Clozaril) <10 mcg/L; Norclozapine 11 mcg/L (25-400)
--- NOTE | 2024-06-27 07:03 | PC.NURSE ---
Patient did no void during shift, battery charger conveyor line provider Zainab George notified and order to straight cath x1 given and administered. 900 mL of clear urine drained, procedure well tolerated, will continue to monitor.
[2024-06-27] MEDS: Memantine HCl 5 MG TABLET PO ×2 (09:12→21:05)
[2024-06-27 09:35] VITALS: BP 145/75; PULSE 90; RESP 16; TEMP 36.6; O2SAT 99
--- NOTE | 2024-06-27 10:59 | P.PNPSI_ITS ---
Subjective Subjective Date of Service: 06/27/24 Reason For Visit: Catatonia Subjective Notes: Conditional Voluntary Healthcare Proxy: Yes Interim History: Patient seen psychiatric follow-up. Patient was more stable today alert awake somewhat excited talking in a nonsensical way was hitting himself in the hand. His pulse oxygen has been unremarkable patient may not be able to have ECT even though he is afebrile question of aspiration although again afebrile normal pulse ox started Lovenox but discontinued since patient sitting up and active Medication Compliance: Yes Mental Status Exam Mental Status Exam Narrative: Patient sitting in a chair mumbling unclearly he is alert eyes open response to his name hitting the table at times not overly aggressive does not appear to be self-harming Diagnostics Vital Signs (24Hr): BMI result Body Mass Index 21.8 Labs 06/25/24 07:34 06/26/24 12:04 Labs: Laboratory Results - last 48 hr 06/20/24 06/26/24 13:02 12:04 Sodium 147 H Potassium 4.4 Chloride 115 H Carbon Dioxide 25 Anion Gap 11 L BUN 29 H Creatinine 1.11 Estim Creat Clear Calc 72.1 Estimated GFR > 60 Random Glucose 107 Calcium 8.9 Clozapine <10 L Norclozapine 11 L Imaging Radiology Impressions: ITS Impressions Chest X-Ray 06/26/24 13:05 IMPRESSION: Airspace opacity at the right lung base which may represent pneumonia. Follow-up is recommended. Electronically signed by: Jacob Hope MD 06/26/2024 01:50 PM EDT Medications Medications Current Medications Acetaminophen (Acetaminophen 325 Mg Tablet) 650 mg PO Q6H PRN PRN Reason: Headache/Pain, Scale 1-10 Last Admin: 06/26/24 20:53 Dose: 650 mg Al Hydroxide/Mg Hydroxide (Magnesium Hydrox/Alum Hydrox 30 Ml Oral.Susp) 30 ml PO Q6H PRN PRN Reason: Heartburn/Nausea Clozapine (Clozapine 100 Mg Tablet) 200 mg PO BEDTIME [facility] Last Admin: 06/26/24 20:53 Dose: 200 mg Enoxaparin Sodium (Enoxaparin Sodium 40 Mg/0.4 Ml Syringe) 40 mg SUBCUT Q24H [facility] Last Admin: 06/26/24 12:18 Dose: 40 mg Lactated Ringer's (Lr) 1,000 mls @ 150 mls/hr IVCONT .Q6H40M [facility] Last Admin: 06/26/24 10:35 Dose: Not Given Piperacillin Sod/Tazobactam (Sod 4.5 gm/ Sodium Chloride) 100 mls @ 200 mls/hr IV Q6H [facility] Magnesium Hydroxide (Milk Of Magnesia 30 Ml Oral.Susp) 30 ml PO DAILY PRN PRN Reason: Constipation Memantine (Memantine Hcl 5 Mg Tablet) 5 mg PO BID [facility] Last Admin: 06/27/24 09:12 Dose: 5 mg Sodium Chloride (0.9 % Sodium Chloride Flush 3 Ml Syringe) 3 ml IVFLUSH QSHIFT [facility] Last Admin: 06/27/24 09:12 Dose: 3 ml Tamsulosin HCl (Tamsulosin Hcl 0.4 Mg Capsule) 0.4 mg PO BEDTIME [facility] Last Admin: 06/26/24 20:54 Dose: 0.4 mg Trazodone HCl (Trazodone Hcl 50 Mg Tablet) 50 mg PO BEDTIME MRX1 PRN PRN Reason: Insomnia Last Admin: 06/26/24 20:53 Dose: 50 mg Allergies Allergies Allergy/AdvReac Type Severity Reaction Status Date / Time No Known Allergies [NKA] Allergy Unknown NONE Verified 06/19/24 20:43 Assessment & Plan Assessment & Plan (1) Schizoaffective disorder, depressive type: Status: Acute Code(s): F25.1 - Schizoaffective disorder, depressive type (2) Catatonia: Status: Acute Code(s): F06.1 - Catatonic disorder due to known physiological condition Plan 59 year old male with history of hypertension, gvq-ahcysic-pctgwwgxg type 2 diabetes, schizoaffective disorder, and depression with catatonia admitted to Psychiatry with consult placed to hospitalist service for ECT evaluation. Catatonia Pt with previous well tolerated ECTs. NO history of seizures, chf, cad. No evidence of distress, lungs clear, Heart RRR, no edema. Unfortunately unable to ascertain history/ROS from patient, reviewed with nursing staff EKG reassuring without any dysrhythmia and QTC is reassuring RCRI score 0. At this time, there is no medical contraindication that should preclude patient from undergoing ECT based on available information Give 1L IV LR @500ml/hr given poor PO intake. Consider additional IVF if needed Had tolerated previously Thank you for allowing me to participate in this consult. Signing off at this time. Please do not hesitate to call for further questions or for any acute medical issues 06/26/24 Patient Pt medically cleared 06/25 was lethargic post ect but had lorazepam for catatonia given fluids had ? pneumonia on xray po2 ok on room air see hospitalist consu;t prophlatic antibiotics 06/27/2024 Continue clozapine ECT is possible will not give lorazepam post ECT patient had become quite sedated had tolerated previously Patient intermittently not voiding urine urology consult called we are monitoring Reason for continued inpatient stay Substantial Risk for: inability to function, rapid decompensation and med/psych decompensation Time Spent With Patient Time: Total time managing care of this patient today ____ minutes.
[2024-06-27] MEDS: LORazepam 2 MG/ML VIAL 1 MG IVPUSH (11:03)
--- NOTE | 2024-06-27 16:29 | P.EN_ITS ---
Event Note Date of Service: 06/27/24 Event Note: Follow up for pt admitted to [facility] psych unit with initial consultation placed for post ECT hypoxia. Pt seen and evaluated on the unit where he is sitting at a table in the common area. Pt is partially catatonic though occasionally following commands. Has been impulsive and exhibiting some self-injurious behavior such as slamming his hands on the table. Pt less somnolent than was observed yesterday. Pt apparently ate 50% of his breakfast this morning. Pt h as had no repeat episodes of hypoxia since yesterday, last noted to be satting at 99% on RA. Pt not noted to be coughing. Breathing unlabored. Unclear if patient's hypoxia secondary to aspiration or sedation from Ativan postop. Consulted with patient's psychiatric provider and benefits of ECT for this pt outweigh risks for aspiration due to catatonia. Currently no contraindication to planned ECT procedure. If pt has repeat episode of either hypoxia or aspiration from ECT, will reconsider risk stratification. Time Spent With Patient Time: Total time managing care of this patient today ____ minutes.
[2024-06-27] MEDS: cloZAPine 100 MG TABLET 200 MG PO (21:05)
[2024-06-27] MEDS: Tamsulosin HCL 0.4 MG CAPSULE PO (21:05)
[2024-06-27 22:00] VITALS: BP 123/63; PULSE 93; RESP 16; TEMP 36.2; O2SAT 93
[2024-06-28] MEDS: 0.9 % Sodium Chloride Flush 3 ML SYRINGE IVFLUSH ×3 (00:22→17:14)
[2024-06-28] MEDS: Piperacillin Sodium/Tazobactam 4.5 GM in 0.9 % Sodium Chloride 100 ML IV ×4 (00:24→18:09)
--- NOTE | 2024-06-28 00:30 | PC.NURSE ---
Patient pulled PRN IV out, angio intact. Resistive to care when trying to bandage area. Bladder scan performed on patient for 172 mls, patient denies need to void. 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
[2024-06-28 08:28] VITALS: BP 131/85; PULSE 92; RESP 16; TEMP 36.2; O2SAT 97
[2024-06-28] MEDS: Memantine HCl 5 MG TABLET PO ×2 (08:30→21:18)
--- NOTE | 2024-06-28 08:42 | P.PNPSI_ITS ---
Subjective Subjective Date of Service: 06/28/24 Reason For Visit: Catatonia Subjective Notes: Conditional Voluntary Healthcare Proxy: Yes Interim History: Patient seen psychiatric follow-up. Patient is on Lovenox for prevention of pulmonary embolism he is on intravenous ABX secondary to pneumonia question of aspiration right after ECT. Case reviewed with Dr. Candido Phillips who recommends waiting 2 weeks as increase risk of bronchospasm. Patient the floor he was transient a alert at times pounding table somewhat aggressively was redirectable other times mumbling and seem nonsensical he was given lorazepam 1 mg Anesthesia chief had recommended consideration of ketamine infusion if ECT not available for the next 1-2 weeks. Mental Status Exam Mental Status Exam Narrative: Patient sitting in a chair mumbling unclearly he is alert eyes open response to his name hitting the table at times not overly aggressive does not appear to be self-harming Diagnostics Vital Signs (24Hr): Vital Signs - 24 hr 06/27/24 09:35 06/27/24 22:00 06/28/24 08:28 Temperature 97.9 F 97.1 F 97.2 F Pulse Rate 90 93 92 Respiratory Rate 16 16 16 Blood Pressure 145/75 H 123/63 131/85 Pulse Oximetry 99 93 97 Oxygen Delivery Method Room Air Room Air Room Air BMI result Body Mass Index 21.8 Labs 06/25/24 07:34 06/26/24 12:04 Labs: Laboratory Results - last 48 hr 06/20/24 06/26/24 13:02 12:04 Sodium 147 H Potassium 4.4 Chloride 115 H Carbon Dioxide 25 Anion Gap 11 L BUN 29 H Creatinine 1.11 Estim Creat Clear Calc 72.1 Estimated GFR > 60 Random Glucose 107 Calcium 8.9 Clozapine <10 L Norclozapine 11 L Imaging Radiology Impressions: ITS Impressions Chest X-Ray 06/26/24 13:05 IMPRESSION: Airspace opacity at the right lung base which may represent pneumonia. Follow-up is recommended. Electronically signed by: Jacob Hope MD 06/26/2024 01:50 PM EDT Medications Medications Current Medications Acetaminophen (Acetaminophen 325 Mg Tablet) 650 mg PO Q6H PRN PRN Reason: Headache/Pain, Scale 1-10 Last Admin: 06/26/24 20:53 Dose: 650 mg Al Hydroxide/Mg Hydroxide (Magnesium Hydrox/Alum Hydrox 30 Ml Oral.Susp) 30 ml PO Q6H PRN PRN Reason: Heartburn/Nausea Clozapine (Clozapine 100 Mg Tablet) 200 mg PO BEDTIME [facility] Last Admin: 06/27/24 21:05 Dose: 200 mg Lactated Ringer's (Lr) 1,000 mls @ 150 mls/hr IVCONT .Q6H40M [facility] Last Admin: 06/26/24 10:35 Dose: Not Given Piperacillin Sod/Tazobactam (Sod 4.5 gm/ Sodium Chloride) 100 mls @ 200 mls/hr IV Q6H [facility] Last Admin: 06/28/24 06:05 Dose: 200 mls/hr Magnesium Hydroxide (Milk Of Magnesia 30 Ml Oral.Susp) 30 ml PO DAILY PRN PRN Reason: Constipation Memantine (Memantine Hcl 5 Mg Tablet) 5 mg PO BID [facility] Last Admin: 06/28/24 08:30 Dose: 5 mg Sodium Chloride (0.9 % Sodium Chloride Flush 3 Ml Syringe) 3 ml IVFLUSH QSHIFT [facility] Last Admin: 06/28/24 08:07 Dose: 3 ml Tamsulosin HCl (Tamsulosin Hcl 0.4 Mg Capsule) 0.4 mg PO BEDTIME [facility] Last Admin: 06/27/24 21:05 Dose: 0.4 mg Trazodone HCl (Trazodone Hcl 50 Mg Tablet) 50 mg PO BEDTIME MRX1 PRN PRN Reason: Insomnia Last Admin: 06/26/24 20:53 Dose: 50 mg Allergies Allergies Allergy/AdvReac Type Severity Reaction Status Date / Time No Known Allergies [NKA] Allergy Unknown NONE Verified 06/19/24 20:43 Assessment & Plan Assessment & Plan (1) Schizoaffective disorder, depressive type: Status: Acute Code(s): F25.1 - Schizoaffective disorder, depressive type (2) Catatonia: Status: Acute Code(s): F06.1 - Catatonic disorder due to known physiological condition (3) Benign prostate hyperplasia: Qualifiers: Lower urinary tract symptom presence: unspecified whether lower urinary tract symptoms present Qualified Code(s): N40.0 - Benign prostatic hyperplasia without lower urinary tract symptoms Status: Acute Code(s): N40.0 - Benign prostatic hyperplasia without lower urinary tract symptoms Plan 59 year old male with history of hypertension, gug-hdpkrol-alagpaqla type 2 diabetes, schizoaffective disorder, and depression with catatonia admitted to Psychiatry with consult placed to hospitalist service for ECT evaluation. Catatonia Pt with previous well tolerated ECTs. NO history of seizures, chf, cad. No evidence of distress, lungs clear, Heart RRR, no edema. Unfortunately unable to ascertain history/ROS from patient, reviewed with nursing staff EKG reassuring without any dysrhythmia and QTC is reassuring RCRI score 0. At this time, there is no medical contraindication that should preclude patient from undergoing ECT based on available information Give 1L IV LR @500ml/hr given poor PO intake. Consider additional IVF if needed Had tolerated previously Thank you for allowing me to participate in this consult. Signing off at this time. Please do not hesitate to call for further questions or for any acute medical issues 06/26/24 Patient Pt medically cleared 06/25 was lethargic post ect but had lorazepam for catatonia given fluids had ? pneumonia on xray po2 ok on room air see hospitalist consu;t prophlatic antibiotics 06/27/2024 Continue clozapine ECT is possible will not give lorazepam post ECT patient had become quite sedated had tolerated previously Patient intermittently not voiding urine urology consult called we are monitoring 06/28/2024 Anesthesia does not recommend anesthesia and ECT at this time given recent aspiration pneumonia although patient has no fever he is maintaining O2. Periods of being alert he will eat some of his meals consider lorazepam 1 mg IV t.i.d. continue clozapine Reason for continued inpatient stay Substantial Risk for: inability to function and rapid decompensation Time Spent With Patient Time: Total time managing care of this patient today ____ minutes.
[2024-06-28] MEDS: Enoxaparin Sodium 40 MG/0.4 ML SYRINGE SUBCUT (09:12)
--- NOTE | 2024-06-28 09:22 | PM.ANESPN ---
Subjective Subjective Date of Service: 06/28/24 Interval history: pt is being treated for aspiration pneumonia possibly due to anesthesia received for ECT. Because of patients comorbidities and complicated psychiatric condition (catatonia/depression) pt will needed to be intubated for future ECT treatments requiring an OR room. pt is high risk for aspiration given his current disposition. Physical Exam Vital Signs: Vital Signs: Last Vital Signs Temp 97.2 F 06/28/24 08:28 Pulse 92 06/28/24 08:28 Resp 16 06/28/24 08:28 BP 131/85 06/28/24 08:28 Pulse Ox 97 06/28/24 08:28 O2 Del Method Room Air 06/28/24 08:28 O2 Flow Rate 2 06/26/24 09:33 BMI result Body Mass Index 21.8 Progress Note: A&P Time Spent With Patient Time: Total time managing care of this patient today ____ minutes. Procedures Date of Service Date of Service: 06/28/24
[2024-06-28 10:15] VITALS: BMI 26.6
[2024-06-28] MEDS: LORazepam 2 MG/ML VIAL 1 MG IVPUSH (11:17)
--- NOTE | 2024-06-28 12:10 | PC.NURSE ---
Urology consult called in to ext [phone].
[2024-06-28 21:13] VITALS: BP 131/77; PULSE 83; RESP 18; TEMP 36.3; O2SAT 95
[2024-06-28] MEDS: cloZAPine 100 MG TABLET 200 MG PO (21:17)
[2024-06-28] MEDS: traZODone HCL 50 MG TABLET PO (21:18)
[2024-06-28] MEDS: Tamsulosin HCL 0.4 MG CAPSULE PO (21:18)
[2024-06-29] MEDS: Piperacillin Sodium/Tazobactam 4.5 GM in 0.9 % Sodium Chloride 100 ML IV ×5 (00:05→23:45)
[2024-06-29] MEDS: 0.9 % Sodium Chloride Flush 3 ML SYRINGE IVFLUSH ×4 (01:23→23:47)
[2024-06-29 07:48] LABS: Clozapine (Clozaril) 351 mcg/L; Norclozapine 107 mcg/L (25-400)
[2024-06-29 08:55] VITALS: BP 109/65; PULSE 89; RESP 18; TEMP 36.6; O2SAT 93
[2024-06-29] MEDS: Memantine HCl 5 MG TABLET PO ×2 (09:00→20:52)
[2024-06-29] MEDS: Enoxaparin Sodium 40 MG/0.4 ML SYRINGE SUBCUT (09:01)
--- NOTE | 2024-06-29 17:51 | P.PNPSI_ITS ---
Subjective Subjective Date of Service: 06/29/24 Reason For Visit: Catatonia Interim History: Met with patient; discussed with team; discussed with Dr. Huerta Patient remained catatonic, overall not eating much though a little more than before. He does wave to typewriters functional tester shahram but does not really answer questions. Discussed case with Dr. Huerta who agrees to restart ativan 1mg tid (IV) Mental Status Exam Mental Status Exam Narrative: Patient sitting in a chair mumbling unclearly; awake and alert and waves to typewriters functional tester but does not answer questions; unkempt; thought content/process, vacuous/blank. Diagnostics Vital Signs (24Hr): Vital Signs - 24 hr 06/28/24 21:13 06/29/24 08:55 Temperature 97.3 F 97.9 F Pulse Rate 83 89 Respiratory Rate 18 18 Blood Pressure 131/77 109/65 Pulse Oximetry 95 93 Oxygen Delivery Method Room Air Room Air BMI result Body Mass Index 26.6 Labs 06/25/24 07:34 06/26/24 12:04 Labs: Laboratory Results - last 48 hr 06/23/24 08:11 Clozapine 351 Norclozapine 107 Imaging Radiology Impressions: ITS Impressions Chest X-Ray 06/26/24 13:05 IMPRESSION: Airspace opacity at the right lung base which may represent pneumonia. Follow-up is recommended. Electronically signed by: Jacob Hope MD 06/26/2024 01:50 PM EDT RP Medications Medications Current Medications Acetaminophen (Acetaminophen 325 Mg Tablet) 650 mg PO Q6H PRN PRN Reason: Headache/Pain, Scale 1-10 Last Admin: 06/26/24 20:53 Dose: 650 mg Al Hydroxide/Mg Hydroxide (Magnesium Hydrox/Alum Hydrox 30 Ml Oral.Susp) 30 ml PO Q6H PRN PRN Reason: Heartburn/Nausea Clozapine (Clozapine 100 Mg Tablet) 200 mg PO BEDTIME [facility] Last Admin: 06/28/24 21:17 Dose: 200 mg Enoxaparin Sodium (Enoxaparin Sodium 40 Mg/0.4 Ml Syringe) 40 mg SUBCUT Q24H [facility] Last Admin: 06/29/24 09:01 Dose: 40 mg Finasteride (Finasteride 5 Mg Tablet) 5 mg PO DAILY [facility] Lactated Ringer's (Lr) 1,000 mls @ 150 mls/hr IVCONT .Q6H40M [facility] Last Admin: 06/26/24 10:35 Dose: Not Given Piperacillin Sod/Tazobactam (Sod 4.5 gm/ Sodium Chloride) 100 mls @ 200 mls/hr IV Q6H [facility] Stop: 06/30/24 11:59 Last Admin: 06/29/24 13:45 Dose: 200 mls/hr Magnesium Hydroxide (Milk Of Magnesia 30 Ml Oral.Susp) 30 ml PO DAILY PRN PRN Reason: Constipation Memantine (Memantine Hcl 5 Mg Tablet) 5 mg PO BID [facility] Last Admin: 06/29/24 09:00 Dose: 5 mg Sodium Chloride (0.9 % Sodium Chloride Flush 3 Ml Syringe) 3 ml IVFLUSH QSHIFT [facility] Last Admin: 06/29/24 15:04 Dose: 3 ml Tamsulosin HCl (Tamsulosin Hcl 0.4 Mg Capsule) 0.8 mg PO BEDTIME [facility] Trazodone HCl (Trazodone Hcl 50 Mg Tablet) 50 mg PO BEDTIME MRX1 PRN PRN Reason: Insomnia Last Admin: 06/28/24 21:18 Dose: 50 mg Allergies Allergies Allergy/AdvReac Type Severity Reaction Status Date / Time No Known Allergies [NKA] Allergy Unknown NONE Verified 06/19/24 20:43 Assessment & Plan Assessment & Plan (1) Schizoaffective disorder, depressive type: Status: Acute Code(s): F25.1 - Schizoaffective disorder, depressive type (2) Catatonia: Status: Acute Code(s): F06.1 - Catatonic disorder due to known physiological condition (3) Benign prostate hyperplasia: Qualifiers: Lower urinary tract symptom presence: unspecified whether lower urinary tract symptoms present Qualified Code(s): N40.0 - Benign prostatic hyperplasia without lower urinary tract symptoms Status: Acute Code(s): N40.0 - Benign prostatic hyperplasia without lower urinary tract symptoms Plan 59 year old male with history of hypertension, [id number] type 2 diabetes, schizoaffective disorder, and depression with catatonia admitted to Psychiatry with consult placed to hospitalist service for ECT evaluation. Catatonia Pt with previous well tolerated ECTs. NO history of seizures, chf, cad. No evidence of distress, lungs clear, Heart RRR, no edema. Unfortunately unable to ascertain history/ROS from patient, reviewed with nursing staff EKG reassuring without any dysrhythmia and QTC is reassuring RCRI score 0. At this time, there is no medical contraindication that should preclude patient from undergoing ECT based on available information Give 1L IV LR @500ml/hr given poor PO intake. Consider additional IVF if needed Had tolerated previously Thank you for allowing me to participate in this consult. Signing off at this time. Please do not hesitate to call for further questions or for any acute medical issues 06/26/24 Patient Pt medically cleared 06/25 was lethargic post ect but had lorazepam for catatonia given fluids had ? pneumonia on xray po2 ok on room air see hospitalist consu;t prophlatic antibiotics 06/27/2024 Continue clozapine ECT is possible will not give lorazepam post ECT patient had become quite sedated had tolerated previously Patient intermittently not voiding urine urology consult called we are monitoring 06/28/2024 Anesthesia does not recommend anesthesia and ECT at this time given recent aspiration pneumonia although patient has no fever he is maintaining O2. Periods of being alert he will eat some of his meals consider lorazepam 1 mg IV t.i.d. continue clozapine 06/29 Patient remained catatonic, overall not eating much though a little more than before. He does wave to typewriters functional tester shahram but does not really answer questions. Discussed case with Dr. Huerta who agrees to restart ativan 1mg tid (IV) Patient educated on: diagnosis, medication risk/benefits and medical condition Informed Consent: does not understand Reason for continued inpatient stay Substantial Risk for: inability to function Time Spent With Patient Time: Total time managing care of this patient today ____ minutes.
[2024-06-29] MEDS: LORazepam 2 MG/ML VIAL 1 MG IVPUSH ×2 (18:33→21:04)
[2024-06-29 20:49] VITALS: BP 121/67; PULSE 79; RESP 18; TEMP 36.2; O2SAT 95
[2024-06-29] MEDS: Tamsulosin HCL 0.4 MG CAPSULE 0.8 MG PO (20:52)
[2024-06-29] MEDS: cloZAPine 100 MG TABLET 200 MG PO (20:52)
[2024-06-29] MEDS: traZODone HCL 50 MG TABLET PO (21:09)
[2024-06-30] MEDS: Piperacillin Sodium/Tazobactam 4.5 GM in 0.9 % Sodium Chloride 100 ML IV (05:54)
[2024-06-30 08:34] VITALS: BP 126/74; PULSE 86; RESP 18; TEMP 36.6; O2SAT 93
[2024-06-30] MEDS: Finasteride 5 MG TABLET PO (08:36)
[2024-06-30] MEDS: Memantine HCl 5 MG TABLET PO ×2 (08:36→20:32)
[2024-06-30] MEDS: LORazepam 2 MG/ML VIAL 1 MG IVPUSH ×3 (08:36→20:46)
[2024-06-30] MEDS: Enoxaparin Sodium 40 MG/0.4 ML SYRINGE SUBCUT (08:36)
[2024-06-30] MEDS: 0.9 % Sodium Chloride Flush 3 ML SYRINGE IVFLUSH ×2 (08:42→14:57)
--- NOTE | 2024-06-30 15:08 | P.PNPSI_ITS ---
Subjective Subjective Date of Service: 06/30/24 Reason For Visit: Catatonia Interim History: Met with patient; discussed with team Remains catatonic, eating a little better however. Still not urinating and required straight catheterization x2 today. Patient doing some bizarre behaviors, grasping at things in the air that are not there. Will increase Ativan to q.i.d. Mental Status Exam Mental Status Exam Narrative: Patient sitting in a chair mumbling unclearly; awake and alert; behaviors bizarre, grasping at things in the air that are not there; unkempt; thought content/process is vacuous/blank. Diagnostics Vital Signs (24Hr): Vital Signs - 24 hr 06/29/24 20:49 06/30/24 08:34 Temperature 97.1 F 98 F Pulse Rate 79 86 Respiratory Rate 18 18 Blood Pressure 121/67 126/74 Pulse Oximetry 95 93 Oxygen Delivery Method Room Air Room Air BMI result Body Mass Index 26.6 Labs 06/25/24 07:34 06/26/24 12:04 Labs: Laboratory Results - last 48 hr 06/23/24 08:11 Clozapine 351 Norclozapine 107 Imaging Radiology Impressions: ITS Impressions Chest X-Ray 06/26/24 13:05 IMPRESSION: Airspace opacity at the right lung base which may represent pneumonia. Follow-up is recommended. Electronically signed by: Jacob Hope MD 06/26/2024 01:50 PM EDT Medications Medications Current Medications Acetaminophen (Acetaminophen 325 Mg Tablet) 650 mg PO Q6H PRN PRN Reason: Headache/Pain, Scale 1-10 Last Admin: 06/26/24 20:53 Dose: 650 mg Al Hydroxide/Mg Hydroxide (Magnesium Hydrox/Alum Hydrox 30 Ml Oral.Susp) 30 ml PO Q6H PRN PRN Reason: Heartburn/Nausea Clozapine (Clozapine 100 Mg Tablet) 200 mg PO BEDTIME [facility] Last Admin: 06/29/24 20:52 Dose: 200 mg Enoxaparin Sodium (Enoxaparin Sodium 40 Mg/0.4 Ml Syringe) 40 mg SUBCUT Q24H [facility] Last Admin: 06/30/24 08:36 Dose: 40 mg Finasteride (Finasteride 5 Mg Tablet) 5 mg PO DAILY [facility] Last Admin: 06/30/24 08:36 Dose: 5 mg Lactated Ringer's (Lr) 1,000 mls @ 150 mls/hr IVCONT .Q6H40M [facility] Last Admin: 06/26/24 10:35 Dose: Not Given Lorazepam (Lorazepam 2 Mg/Ml Vial) 1 mg IVPUSH TID [facility] Last Admin: 06/30/24 14:56 Dose: 1 mg Magnesium Hydroxide (Milk Of Magnesia 30 Ml Oral.Susp) 30 ml PO DAILY PRN PRN Reason: Constipation Memantine (Memantine Hcl 5 Mg Tablet) 5 mg PO BID [facility] Last Admin: 06/30/24 08:36 Dose: 5 mg Sodium Chloride (0.9 % Sodium Chloride Flush 3 Ml Syringe) 3 ml IVFLUSH QSHIFT [facility] Last Admin: 06/30/24 14:57 Dose: 3 ml Tamsulosin HCl (Tamsulosin Hcl 0.4 Mg Capsule) 0.8 mg PO BEDTIME [facility] Last Admin: 06/29/24 20:52 Dose: 0.8 mg Trazodone HCl (Trazodone Hcl 50 Mg Tablet) 50 mg PO BEDTIME MRX1 PRN PRN Reason: Insomnia Last Admin: 06/29/24 21:09 Dose: 50 mg Allergies Allergies Allergy/AdvReac Type Severity Reaction Status Date / Time No Known Allergies [NKA] Allergy Unknown NONE Verified 06/19/24 20:43 Assessment & Plan Assessment & Plan (1) Schizoaffective disorder, depressive type: Status: Acute Code(s): F25.1 - Schizoaffective disorder, depressive type (2) Catatonia: Status: Acute Code(s): F06.1 - Catatonic disorder due to known physiological condition (3) Benign prostate hyperplasia: Qualifiers: Lower urinary tract symptom presence: unspecified whether lower urinary tract symptoms present Qualified Code(s): N40.0 - Benign prostatic hyperplasia without lower urinary tract symptoms Status: Acute Code(s): N40.0 - Benign prostatic hyperplasia without lower urinary tract symptoms Plan 59 year old male with history of hypertension, fru-kjlucms-sxpchmozp type 2 diabetes, schizoaffective disorder, and depression with catatonia admitted to Psychiatry with consult placed to hospitalist service for ECT evaluation. Catatonia Pt with previous well tolerated ECTs. NO history of seizures, chf, cad. No evidence of distress, lungs clear, Heart RRR, no edema. Unfortunately unable to ascertain history/ROS from patient, reviewed with nursing staff EKG reassuring without any dysrhythmia and QTC is reassuring RCRI score 0. At this time, there is no medical contraindication that should preclude patient from undergoing ECT based on available information Give 1L IV LR @500ml/hr given poor PO intake. Consider additional IVF if needed Had tolerated previously Thank you for allowing me to participate in this consult. Signing off at this time. Please do not hesitate to call for further questions or for any acute medical issues 06/26/24 Patient Pt medically cleared 06/25 was lethargic post ect but had lorazepam for catatonia given fluids had ? pneumonia on xray po2 ok on room air see hospitalist consu;t prophlatic antibiotics 06/27/2024 Continue clozapine ECT is possible will not give lorazepam post ECT patient had become quite sedated had tolerated previously Patient intermittently not voiding urine urology consult called we are monitoring 06/28/2024 Anesthesia does not recommend anesthesia and ECT at this time given recent aspiration pneumonia although patient has no fever he is maintaining O2. Periods of being alert he will eat some of his meals consider lorazepam 1 mg IV t.i.d. continue clozapine 06/29 Patient remained catatonic, overall not eating much though a little more than before. He does wave to documentation writer shahram but does not really answer questions. Discussed case with Dr. Huerta who agrees to restart ativan 1mg tid (IV) 06/30 Remains catatonic, eating a little better however. Still not urinating and required straight catheterization x2 today. Patient doing some bizarre behaviors, grasping at things in the air that are not there. Will increase Ativan 1 mg IV to q.i.d. Patient educated on: diagnosis and medication risk/benefits Informed Consent: does not understand Reason for continued inpatient stay Substantial Risk for: inability to function Time Spent With Patient Time: Total time managing care of this patient today ____ minutes.
[2024-06-30] MEDS: cloZAPine 100 MG TABLET 200 MG PO (20:32)
[2024-06-30] MEDS: Tamsulosin HCL 0.4 MG CAPSULE 0.8 MG PO (20:32)
[2024-06-30 21:06] VITALS: BP 128/76; PULSE 91; RESP 16; TEMP 36.9; O2SAT 95
[2024-07-01] MEDS: 0.9 % Sodium Chloride Flush 3 ML SYRINGE IVFLUSH ×3 (02:24→16:53)
[2024-07-01 09:07] VITALS: BP 140/73; PULSE 89; RESP 18; TEMP 37.1; O2SAT 93
[2024-07-01] MEDS: LORazepam 2 MG/ML VIAL 1 MG IVPUSH ×4 (10:22→20:38)
[2024-07-01] MEDS: Finasteride 5 MG TABLET PO (10:23)
[2024-07-01] MEDS: Enoxaparin Sodium 40 MG/0.4 ML SYRINGE SUBCUT (10:23)
[2024-07-01] MEDS: Memantine HCl 5 MG TABLET PO (10:23)
--- NOTE | 2024-07-01 15:44 | HO.PSYCHPN ---
Subjective Subjective Date of Service: 07/01/24 Reason For Visit: Catatonia Subjective Notes: Conditional Voluntary Healthcare Proxy: Yes Interim History: Pt seen in f/u pt has been eating and drinking still has to be st cath at times on 0.8 tamulosin. Taking clozapine namenda 10 bid pt more alert less catatonic sx .Ect currently on hold sec to ? of pneumonia last wk with brief course of ab po2 has been ok. Medication Compliance: Yes Mental Status Exam Mental Status Exam Narrative: pt staring does respond to his name slowed mentation non linear mood flat periods of lability no aggression or hostility noted bizarre mumblings Diagnostics Vital Signs (24Hr): Vital Signs - 24 hr 06/30/24 21:06 07/01/24 09:07 Temperature 98.5 F 98.7 F Pulse Rate 91 89 Respiratory Rate 16 18 Blood Pressure 128/76 140/73 H Pulse Oximetry 95 93 Oxygen Delivery Method Room Air Room Air BMI result Body Mass Index 26.6 Labs 06/25/24 07:34 06/26/24 12:04 Imaging Radiology Impressions: ITS Impressions Chest X-Ray 06/26/24 13:05 IMPRESSION: Airspace opacity at the right lung base which may represent pneumonia. Follow-up is recommended. Electronically signed by: Jacob Hope MD 06/26/2024 01:50 PM EDT RP Medications Medications Current Medications Acetaminophen (Acetaminophen 325 Mg Tablet) 650 mg PO Q6H PRN PRN Reason: Headache/Pain, Scale 1-10 Last Admin: 06/26/24 20:53 Dose: 650 mg Al Hydroxide/Mg Hydroxide (Magnesium Hydrox/Alum Hydrox 30 Ml Oral.Susp) 30 ml PO Q6H PRN PRN Reason: Heartburn/Nausea Clozapine (Clozapine 100 Mg Tablet) 200 mg PO BEDTIME [facility] Last Admin: 06/30/24 20:32 Dose: 200 mg Enoxaparin Sodium (Enoxaparin Sodium 40 Mg/0.4 Ml Syringe) 40 mg SUBCUT Q24H [facility] Last Admin: 07/01/24 10:23 Dose: 40 mg Finasteride (Finasteride 5 Mg Tablet) 5 mg PO DAILY [facility] Last Admin: 07/01/24 10:23 Dose: 5 mg Lactated Ringer's (Lr) 1,000 mls @ 150 mls/hr IVCONT .Q6H40M [facility] Last Admin: 06/26/24 10:35 Dose: Not Given Lorazepam (Lorazepam 2 Mg/Ml Vial) 1 mg IVPUSH QID [facility] Last Admin: 07/01/24 14:06 Dose: 1 mg Magnesium Hydroxide (Milk Of Magnesia 30 Ml Oral.Susp) 30 ml PO DAILY PRN PRN Reason: Constipation Memantine (Memantine Hcl 10 Mg Tablet) 10 mg PO BID [facility] Sodium Chloride (0.9 % Sodium Chloride Flush 3 Ml Syringe) 3 ml IVFLUSH QSHIFT [facility] Last Admin: 07/01/24 10:22 Dose: 3 ml Tamsulosin HCl (Tamsulosin Hcl 0.4 Mg Capsule) 0.8 mg PO BEDTIME [facility] Last Admin: 06/30/24 20:32 Dose: 0.8 mg Trazodone HCl (Trazodone Hcl 50 Mg Tablet) 50 mg PO BEDTIME MRX1 PRN PRN Reason: Insomnia Last Admin: 06/29/24 21:09 Dose: 50 mg Allergies Allergies Allergy/AdvReac Type Severity Reaction Status Date / Time No Known Allergies [NKA] Allergy Unknown NONE Verified 06/19/24 20:43 Assessment & Plan Assessment & Plan (1) Schizoaffective disorder, depressive type: Status: Acute Code(s): F25.1 - Schizoaffective disorder, depressive type (2) Catatonia: Status: Acute Code(s): F06.1 - Catatonic disorder due to known physiological condition (3) Benign prostate hyperplasia: Qualifiers: Lower urinary tract symptom presence: unspecified whether lower urinary tract symptoms present Qualified Code(s): N40.0 - Benign prostatic hyperplasia without lower urinary tract symptoms Status: Acute Code(s): N40.0 - Benign prostatic hyperplasia without lower urinary tract symptoms Plan 59 year old male with history of hypertension, [id number] type 2 diabetes, schizoaffective disorder, and depression with catatonia admitted to Psychiatry with consult placed to hospitalist service for ECT evaluation. Catatonia Pt with previous well tolerated ECTs. NO history of seizures, chf, cad. No evidence of distress, lungs clear, Heart RRR, no edema. Unfortunately unable to ascertain history/ROS from patient, reviewed with nursing staff EKG reassuring without any dysrhythmia and QTC is reassuring RCRI score 0. At this time, there is no medical contraindication that should preclude patient from undergoing ECT based on available information Give 1L IV LR @500ml/hr given poor PO intake. Consider additional IVF if needed Had tolerated previously Thank you for allowing me to participate in this consult. Signing off at this time. Please do not hesitate to call for further questions or for any acute medical issues 06/26/24 Patient Pt medically cleared 06/25 was lethargic post ect but had lorazepam for catatonia given fluids had ? pneumonia on xray po2 ok on room air see hospitalist consu;t prophlatic antibiotics 06/27/2024 Continue clozapine ECT is possible will not give lorazepam post ECT patient had become quite sedated had tolerated previously Patient intermittently not voiding urine urology consult called we are monitoring 06/28/2024 Anesthesia does not recommend anesthesia and ECT at this time given recent aspiration pneumonia although patient has no fever he is maintaining O2. Periods of being alert he will eat some of his meals consider lorazepam 1 mg IV t.i.d. continue clozapine 06/29 Patient remained catatonic, overall not eating much though a little more than before. He does wave to investment underwriter shahram but does not really answer questions. Discussed case with Dr. Huerta who agrees to restart ativan 1mg tid (IV) 06/30 Remains catatonic, eating a little better however. Still not urinating and required straight catheterization x2 today. Patient doing some bizarre behaviors, grasping at things in the air that are not there. Will increase Ativan 1 mg IV to q.i.d. 07/01/24 Pt remains with catatonia with some improvement cloz level in er prior to adm almost 0 pt had not been taking his medication. ect consider ketamine as an alternative to ECT there are reports in the literature not a standard treatment but patient has generally not responded fully to lorazepam nor is he presently able to do ECT. It appears his relapse most likely was secondary to his stopping clozapine Reason for continued inpatient stay Substantial Risk for: inability to function and rapid decompensation Time Spent With Patient Time: Total time managing care of this patient today ____ minutes.
[2024-07-01 19:39] VITALS: BP 102/56; PULSE 74; RESP 16; TEMP 36.3; O2SAT 96
[2024-07-01] MEDS: cloZAPine 100 MG TABLET 200 MG PO (19:43)
[2024-07-01] MEDS: Tamsulosin HCL 0.4 MG CAPSULE 0.8 MG PO (19:44)
[2024-07-01] MEDS: Memantine HCl 10 MG TABLET PO (19:44)
[2024-07-02] MEDS: 0.9 % Sodium Chloride Flush 3 ML SYRINGE IVFLUSH ×3 (00:01→17:57)
[2024-07-02 08:09] VITALS: BP 140/77; PULSE 88; RESP 16; TEMP 36.9; O2SAT 92
[2024-07-02] MEDS: Enoxaparin Sodium 40 MG/0.4 ML SYRINGE SUBCUT (08:18)
[2024-07-02] MEDS: LORazepam 2 MG/ML VIAL 1 MG IVPUSH ×4 (08:19→20:06)
[2024-07-02] MEDS: Finasteride 5 MG TABLET PO (08:21)
[2024-07-02] MEDS: Memantine HCl 10 MG TABLET PO ×2 (08:21→20:06)
--- NOTE | 2024-07-02 09:55 | P.PNPSI_ITS ---
Subjective Subjective Date of Service: 07/02/24 Reason For Visit: Catatonia Subjective Notes: Conditional Voluntary Interim History: Patient seen in psychiatric follow-up. Patient has been more activated and alert be being in a somewhat nonsensical manner The patient has been eating and drinking has not required IV fluids. He intermittently requires straight cath. No sob Mental Status Exam Mental Status Exam Narrative: Patient more alert odd affect at times labile saying things in a nonsensical manner he can respond to his name can focus for brief periods not aggressive generally no active SI or HI noted Mostly psychomotor retarded Diagnostics Vital Signs (24Hr): Vital Signs - 24 hr 07/01/24 19:39 07/02/24 08:09 Temperature 97.4 F 98.5 F Pulse Rate 74 88 Respiratory Rate 16 16 Blood Pressure 102/56 L 140/77 H Pulse Oximetry 96 92 Oxygen Delivery Method Room Air Room Air BMI result Body Mass Index 26.6 Labs 07/03/24 09:46 06/26/24 12:04 Imaging Radiology Impressions: ITS Impressions Chest X-Ray 06/26/24 13:05 IMPRESSION: Airspace opacity at the right lung base which may represent pneumonia. Follow-up is recommended. Electronically signed by: Jacob Hope MD 06/26/2024 01:50 PM EDT RP Medications Medications Current Medications Acetaminophen (Acetaminophen 325 Mg Tablet) 650 mg PO Q6H PRN PRN Reason: Headache/Pain, Scale 1-10 Last Admin: 06/26/24 20:53 Dose: 650 mg Al Hydroxide/Mg Hydroxide (Magnesium Hydrox/Alum Hydrox 30 Ml Oral.Susp) 30 ml PO Q6H PRN PRN Reason: Heartburn/Nausea Clozapine (Clozapine 100 Mg Tablet) 200 mg PO BEDTIME [facility] Last Admin: 07/01/24 19:43 Dose: 200 mg Enoxaparin Sodium (Enoxaparin Sodium 40 Mg/0.4 Ml Syringe) 40 mg SUBCUT Q24H [facility] Last Admin: 07/02/24 08:18 Dose: 40 mg Finasteride (Finasteride 5 Mg Tablet) 5 mg PO DAILY [facility] Last Admin: 07/02/24 08:21 Dose: 5 mg Lactated Ringer's (Lr) 1,000 mls @ 150 mls/hr IVCONT .Q6H40M [facility] Last Admin: 06/26/24 10:35 Dose: Not Given Lorazepam (Lorazepam 2 Mg/Ml Vial) 1 mg IVPUSH QID [facility] Last Admin: 07/02/24 08:19 Dose: 1 mg Magnesium Hydroxide (Milk Of Magnesia 30 Ml Oral.Susp) 30 ml PO DAILY PRN PRN Reason: Constipation Memantine (Memantine Hcl 10 Mg Tablet) 10 mg PO BID [facility] Last Admin: 07/02/24 08:21 Dose: 10 mg Sodium Chloride (0.9 % Sodium Chloride Flush 3 Ml Syringe) 3 ml IVFLUSH QSHIFT [facility] Last Admin: 07/02/24 08:18 Dose: 3 ml Tamsulosin HCl (Tamsulosin Hcl 0.4 Mg Capsule) 0.8 mg PO BEDTIME [facility] Last Admin: 07/01/24 19:44 Dose: 0.8 mg Trazodone HCl (Trazodone Hcl 50 Mg Tablet) 50 mg PO BEDTIME MRX1 PRN PRN Reason: Insomnia Last Admin: 06/29/24 21:09 Dose: 50 mg Allergies Allergies Allergy/AdvReac Type Severity Reaction Status Date / Time No Known Allergies [NKA] Allergy Unknown NONE Verified 06/19/24 20:43 Assessment & Plan Assessment & Plan (1) Schizoaffective disorder, depressive type: Status: Acute Code(s): F25.1 - Schizoaffective disorder, depressive type (2) Catatonia: Status: Acute Code(s): F06.1 - Catatonic disorder due to known physiological condition (3) Benign prostate hyperplasia: Qualifiers: Lower urinary tract symptom presence: unspecified whether lower urinary tract symptoms present Qualified Code(s): N40.0 - Benign prostatic hyperplasia without lower urinary tract symptoms Status: Acute Code(s): N40.0 - Benign prostatic hyperplasia without lower urinary tract symptoms Plan 59 year old male with history of hypertension, [id number] type 2 diabetes, schizoaffective disorder, and depression with catatonia admitted to Psychiatry with consult placed to hospitalist service for ECT evaluation. Catatonia Pt with previous well tolerated ECTs. NO history of seizures, chf, cad. No evidence of distress, lungs clear, Heart RRR, no edema. Unfortunately unable to ascertain history/ROS from patient, reviewed with nursing staff EKG reassuring without any dysrhythmia and QTC is reassuring RCRI score 0. At this time, there is no medical contraindication that should preclude patient from undergoing ECT based on available information Give 1L IV LR @500ml/hr given poor PO intake. Consider additional IVF if needed Had tolerated previously Thank you for allowing me to participate in this consult. Signing off at this time. Please do not hesitate to call for further questions or for any acute medical issues 06/26/24 Patient Pt medically cleared 06/25 was lethargic post ect but had lorazepam for catatonia given fluids had ? pneumonia on xray po2 ok on room air see hospitalist consu;t prophlatic antibiotics 06/27/2024 Continue clozapine ECT is possible will not give lorazepam post ECT patient had become quite sedated had tolerated previously Patient intermittently not voiding urine urology consult called we are monitoring 06/28/2024 Anesthesia does not recommend anesthesia and ECT at this time given recent aspiration pneumonia although patient has no fever he is maintaining O2. Periods of being alert he will eat some of his meals consider lorazepam 1 mg IV t.i.d. continue clozapine 06/29 Patient remained catatonic, overall not eating much though a little more than before. He does wave to aligner typewriter shahram but does not really answer questions. Discussed case with Dr. Huerta who agrees to restart ativan 1mg tid (IV) 06/30 Remains catatonic, eating a little better however. Still not urinating and required straight catheterization x2 today. Patient doing some bizarre behaviors, grasping at things in the air that are not there. Will increase Ativan 1 mg IV to q.i.d. 07/01/24 Pt remains with catatonia with some improvement cloz level in er prior to adm almost 0 pt had not been taking his medication. ect consider ketamine as an alternative to ECT there are reports in the literature not a standard treatment but patient has generally not responded fully to lorazepam nor is he presently able to do ECT. It appears his relapse most likely was secondary to his stopping clozapine 07/02/2024 Continue Namenda ECT presently not an option patient pulse oxygen remains stable requires intermittent straight catheterization tamsulosin 0.8 Continue lorazepam 1 mg 4 times a day. Will increase clozapine Patient educated on: diagnosis and medication risk/benefits Informed Consent: does not understand Reason for continued inpatient stay Substantial Risk for: inability to function, rapid decompensation and med/psych decompensation Time Spent With Patient Time: Total time managing care of this patient today __30__ minutes.
[2024-07-02] MEDS: Tamsulosin HCL 0.4 MG CAPSULE 0.8 MG PO (20:07)
[2024-07-02] MEDS: traZODone HCL 50 MG TABLET PO (20:07)
[2024-07-02] MEDS: cloZAPine 100 MG TABLET 200 MG PO (20:07)
[2024-07-02 22:00] VITALS: BP 146/76; PULSE 85; RESP 18; TEMP 37.6; O2SAT 98
[2024-07-03] MEDS: 0.9 % Sodium Chloride Flush 3 ML SYRINGE IVFLUSH ×2 (00:57→09:31)
[2024-07-03 08:00] VITALS: BP 125/69; PULSE 79; RESP 24; TEMP 36.9; O2SAT 84
[2024-07-03] MEDS: Enoxaparin Sodium 40 MG/0.4 ML SYRINGE SUBCUT (09:30)
[2024-07-03 09:57] LABS: Neutrophils Absolute Auto 4.1 x10*3/uL (2.0-8.3); WBCANC 6.1 X10*3/uL
--- NOTE | 2024-07-03 09:59 | PM.EVENT ---
Event Note Date of Service: 07/03/24 Event Note: Hospitalist service re-consulted due to hypoxia. Per RN, the patient has been intermittently desaturating into the 80s but will then improve to the 90s (90-95) noted this morning. He does also have documented nocturnal hypoxia per respiratory therapy. He is catatonic and completed ECT several days ago without much improvement in condition. He has been getting scheduled ativan since last admission, increased to QID galilea IV on 06/30. He has been evaluated by COMMUNITY ASSOCIATION MANAGER and recommendations are in place for pureed diet and nectar thick liquids with 1:1 total assistance, has sitter in room. On exam patient is catatonic, eyes closed but opening to tactile stimulation but quickly shits them. Otherwise non responsive. He is seated in bed at about 75 degrees. Poor tone BUE and BLE. Lungs with rhonchi throughout L lung and R lower lung. He is noted to have occassional snoring respirations and infrequent apneic episdoes. No distress or increased WOB. He does have diagnosis of mild sleep apnea but reportedly does not wear cpap. He was recently treated for aspiration pneumonia and completed zosyn on 06/30. A/P: Given patient's history/catatonia he is a significant aspiration risk. Suspect patient has been has micro-aspiration 2/2 catatonia. CXR is negative for pneumonia, but given lung exam and hypoxia, likely has pneumonitis due to microaspiration. Patient is somnolent and does have documented history of nocturnal hypoxia at 85% per respiratory therpy. However on review of final diagnostic sleep study report, patient had no significant nocturnal hypoxemia but did show moderately excessive snoring 43% of the time. No evidence of obstructive or central sleep apnea. Recommended treatment measures to minimize the amount of snoring. -hold all sedating medications including ativan. Discussed with Dr. Huerta given scheduled dosing, but ativan had been on hold and was resumed this past weekend -IV methylprednisolone 40mg BID -Aspiration precautions- keep patient at 30-45 degrees. Would avoid increasing this to prevent hypopventilation which could also contribute to hypoxia -Supplemental O2 to maintain oximetry >92% -Consider RT evaluation if snoring/apnea increases -COMMUNITY ASSOCIATION MANAGER reevaluation ordered. Keep NPO until reevaluated. Will reorder fluids as patient does appear dry. -Check CBC, BMP, TSH w/ reflex free T4. Pending results, may also check VBG and ammonia level -Also, consider neuro consult to rule out additional causes of catatonia at the discretion of psychiatry Time Spent With Patient Time: Total time managing care of this patient today ____ minutes.
--- NOTE | 2024-07-03 10:17 | PC.NURSE ---
During morning rounds this engineering writer noticed pt having a difficult time breathing, O2 sat dropping to 84%-95%. Provider called through [employer] and an urgent hospitalist consult placed.
--- NOTE | 2024-07-03 10:18 | PC.NURSE ---
IV access to be changed on , 07/04/24.
[2024-07-03 10:23] LABS: MANUAL DIFF FLAG NO
[2024-07-03 10:26] LABS: Basophils Percent Auto 0.2 % (0-2); Hematocrit 34.8 % (42.0-52.0); Hemoglobin 11.6 g/dl (14.0-18.0); Imm Gran Pct Auto 0.3 % (0.0-0.4); Lymphocytes Absolute Auto 1.5 X10*3/uL (1.2-4.9); Lymphocytes Percent Auto 24.9 % (20-40); Mean Corpuscular HGB Conc 33.3 g/dl (31.0-36.0); Mean Corpuscular Hemoglobin 28.6 pg (27.0-33.0); Mean Corpuscular Volume 85.7 fL (80.0-98.0); Mean Platelet Volume 12.9 fL (9.4-12.4); Monocytes Absolute Auto 0.5 X10*3/uL (0.1-1.2); Monocytes Percent Auto 8.6 % (2-11); Platelet Count 143 X10*3/uL (160-400); Red Blood Count 4.06 X10*6/uL (4.60-5.80); Red Cell Distribution Width 13.6 % (11.0-16.0); White Blood Count 6.1 X10*3/uL (4.8-10.8)
[2024-07-03] MEDS: methylPREDNISolone Sod Succ 40 MG/ML VIAL IVPUSH (10:58)
[2024-07-03 11:12] VITALS: O2SAT 97
--- NOTE | 2024-07-03 11:47 | PC.RT ---
RT into assess patient for svn. Pt was noted by nursing this am to have a transitory O2 desaturation which required him to be placed on 2 lpm n/c. Pt hx reviewed, 07/03 cxr clear, ls are Clr bilat, fine crackles in bases. Pt cough fair and npc at this time. RT reviewed with nursing and PROJECT ACCOUNTANT that svn are not indicated at this time. However we have kept them available as a prn if needed.
[2024-07-03 12:52] VITALS: BMI 26.6
--- NOTE | 2024-07-03 13:03 | MHC.CLN ---
NUTRITION PATIENT CURRENTLY NPO PENDING DIRECTOR OF EMAIL MARKETING EVAL. PRIOR DIET PUREE WITH NECTAR THICK LIQUIDS, 1:1 TOTAL ASSIST. VARIABLE PO INTAKE SINCE ADM. RECEIVED ECT TREATMENTS. IV HYDRATION ORDERED. HYPOXIA NOTED THIS AM AND OXYGEN THERAPY STARTED. FOLLOW FOR DIRECTOR OF EMAIL MARKETING RECOMMENDATIONS AND PLAN OF CARE. SEE CLINICAL NUTRITION ASSESSMENT 07/03/24.
[2024-07-03] MEDS: Lactated Ringers 1,000 ML 100 ML IVCONT ×2 (13:32→23:30)
--- NOTE | 2024-07-03 13:55 | MHC.SL.SWA ---
Addendum entered and electronically signed by Francia Pink MS, [facility]-PROMOTIONS EXECUTIVE PRODUCER 07/03/24 14:23: 07/03/24: MD and RNs consulted. MD ordered repeat swallow evaluation d/t suspected microaspiration. Pt is not a candidate for MBSS d/t catatonia. Pt also is not considered a candidate for PEG per MD and RN. RN noted no concerns with pt swallow mechanism, but noted he is not eating or getting enough fluids. PROMOTIONS EXECUTIVE PRODUCER recommended RD be consulted. Pt tolerated tsps of puree and sips of thins by straw with adequate oropharyngeal coordination, though he needed cueing and max assist with repositioning to encourage improved tolerance. Pt wsa singing along to music throughout re-evaluation, with clear voicing and adequate control of secretions post swalllow. Pt repeating words, phrases, sentences stated to him but maintained adequate eye contact when spoken to by staff in direct line of sight. PROMOTIONS EXECUTIVE PRODUCER recc NDD1 with thin liquids, aspiration precautions, 1:1 feeding when pt alert to task, RT consultation d/t question of respiratory status, and RD consultation d/t question of pt meeting adequately meeting his nutritional needs. Original Note: Speech Pathologist Impression: Pt presents with moderate oropharyngeal dysphagia in setting of prolonged catetonia. When pt alert to task of PO intake, pt swallow mechanism is intact; however, pt is currently showing signs of reduced frequency of reflexive swallow (i.e. anterior loss of saliva, dried secretions on surface of tongue/lips). MD and RN consulted to clarify reason for bedside swallow evaluation order. PROMOTIONS EXECUTIVE PRODUCER documenting this re-assesement as a treatment note as pt was re-evaluated 06/24: Pt tolerated tsps of puree and sips of NTL when fed by PROMOTIONS EXECUTIVE PRODUCER with slow pacing and consistent verbal cues. PROMOTIONS EXECUTIVE PRODUCER explained to pt reason for swallow eval and observations. MD present at end of evaluation. Pt remains on NDD1 with NTL for safety, PROMOTIONS EXECUTIVE PRODUCER recc continued modification to diet pending improvement and permission for water without thckener to encourage more adequate hydration through intake of thins. Frequency/Duration: PROMOTIONS EXECUTIVE PRODUCER to monitor tolerance and advance diet as indicated. Risk of Aspiration Due to: Neurological Condition Dysphasia Diet Status: Continue Puree solids upgrade to thin liquids. Continue monitoring tolerance, adjust diet as appropriate. . Liquid Consistency and Strategies for Safe Swallow: Liquid Intake Recommendation: Thin liquids Liquid Intake Strategies: Small Sips Solid Food Consistency: Dietary Recommendations: Pureed (NDD1) Additional Modifications to Solid Foods: Recc water for hydration, no thickener but close monitoring Oral Medication Intake: Crushed with Puree Please contact the pharmacy regarding appropriate crushable or liquid drug formulations that are available whenever modified delivery is recommended. Compensatory Strategies and Precautions to be Taken for Safe Swallow: Sitting Upright (90 deg) Small Bites and Sips Alternate Liquids/Solids Rate of Ingestion Change Oral Check Supervision While Eating and Drinking for Safe Swallow: Total Assistance (1:1) Foods to Avoid: Mixed consistencies, foods that require chewing or bolus formation Swallowing Recommended Treatments: Compens. Strategy Educat. Recommendation for Speech: Inpatient Speech Therapy Comment: Water permitted for improved hydration Frequency/Duration: PROMOTIONS EXECUTIVE PRODUCER to monitor tolerance and advance diet as indicated Date Range for Service Req: Timeline to reassess: Remote Encoding Center Manager Clinican/Clinical Fellow: No Supervisory Statement: I have reviewed and agree with the student/clinical fellow's documentation: N/A Speech Language Pathologist: Francia Pink M.S., CCC-[employer]OT[employer] EXECUTIVE PRODUCER
--- NOTE | 2024-07-03 14:29 | HO.PSYCHPN ---
Subjective Subjective Date of Service: 07/03/24 Reason For Visit: Catatonia Subjective Notes: Conditional Voluntary Healthcare Proxy: Yes Interim History: [facility] psychiatric follow-up. The patient was somewhat hypoxic this morning was seen by internal medicine Chest x-ray was unremarkable thought to have pneumonitis was started on steroid steroids. Was given 2 L oxygen eventually was able to be discontinued. Patient has been more elevated bizarre echolalia at times alert can register his name and speak briefly patient remains on one-to-one. Lorazepam was held then required 1 or 2 doses later in the afternoon after became more agitated erratic with agitated physical behavior seemingly more so after steroids KUB was ordered patient has not had recent bowel movement troponins have been ordered later in the day patient had been diaphoretic he had been like this previously no history of cardiac events. Mental Status Exam Mental Status Exam Narrative: Patient more alert odd affect at times labile saying things in a nonsensical manner at times echolalia he can respond to his name can focus for brief periods not aggressive generally no active SI or HI noted Periods of psychomotor agitation kicking grabbing Diagnostics Vital Signs (24Hr): Vital Signs - 24 hr 07/02/24 22:00 07/03/24 08:00 07/03/24 11:12 Temperature 99.6 F 98.4 F Pulse Rate 85 79 Respiratory Rate 18 24 H Blood Pressure 146/76 H 125/69 Pulse Oximetry 98 84 L 97 Oxygen Delivery Method Room Air Room Air Nasal Cannula Oxygen Flow Rate 2 BMI result Body Mass Index 26.6 Labs 07/03/24 09:46 07/03/24 18:20 Labs: Laboratory Results - last 48 hr 07/03/24 09:46 WBC 6.1 RBC 4.06 L Hgb 11.6 L Hct 34.8 L MCV 85.7 MCH 28.6 MCHC 33.3 RDW 13.6 Plt Count 143 L MPV 12.9 H Immature Gran % (Auto) 0.3 Neut % (Auto) 66.0 Lymph % (Auto) 24.9 Phelps % (Auto) 8.6 Eos % (Auto) 0.0 Baso % (Auto) 0.2 Lymph # (Auto) 1.5 Phelps # (Auto) 0.5 Eos # (Auto) 0.0 Baso # (Auto) 0.0 Abs Immat Gran (auto) Not Reportable Absolute Neuts (auto) 4.1 Absolute Nucleated RBC 0.000 Nucleated RBC % (auto) 0.0 Imaging Radiology Impressions: ITS Impressions Chest X-Ray 06/26/24 13:05 IMPRESSION: Airspace opacity at the right lung base which may represent pneumonia. Follow-up is recommended. Electronically signed by: Jacob Hope MD 06/26/2024 01:50 PM EDT RP Chest X-Ray 07/03/24 09:10 IMPRESSION: Mild elevation of the right hemidiaphragm. The lungs are clear. Electronically signed by: Jacbo Hope MD 07/03/2024 09:38 AM EDT RP Medications Medications Current Medications Acetaminophen (Acetaminophen 325 Mg Tablet) 650 mg PO Q6H PRN PRN Reason: Headache/Pain, Scale 1-10 Last Admin: 06/26/24 20:53 Dose: 650 mg Al Hydroxide/Mg Hydroxide (Magnesium Hydrox/Alum Hydrox 30 Ml Oral.Susp) 30 ml PO Q6H PRN PRN Reason: Heartburn/Nausea Albuterol/Ipratropium (Albuterol/Iprat 2.5/0.5mg 3 Ml Ampul.Neb) 3 ml INHALE TID PRN PRN Reason: Shortness of Breath/Wheezing Clozapine (Clozapine 25 Mg Tablet) 25 mg PO BEDTIME [facility] Clozapine (Clozapine 100 Mg Tablet) 200 mg PO BEDTIME [facility] Enoxaparin Sodium (Enoxaparin Sodium 40 Mg/0.4 Ml Syringe) 40 mg SUBCUT Q24H [facility] Last Admin: 07/03/24 09:30 Dose: 40 mg Finasteride (Finasteride 5 Mg Tablet) 5 mg PO DAILY [facility] Last Admin: 07/03/24 10:38 Dose: Not Given Lactated Ringer's (Lr) 1,000 mls @ 150 mls/hr IVCONT .Q6H40M [facility] Last Admin: 06/26/24 10:35 Dose: Not Given Lactated Ringer's (Lr) 1,000 mls @ 100 mls/hr IVCONT .Q10H [facility] Last Admin: 07/03/24 13:32 Dose: 100 mls/hr Lorazepam (Lorazepam 2 Mg/Ml Vial) 1 mg IVPUSH QID [facility] Last Admin: 07/03/24 09:34 Dose: Not Given Magnesium Hydroxide (Milk Of Magnesia 30 Ml Oral.Susp) 30 ml PO DAILY PRN PRN Reason: Constipation Memantine (Memantine Hcl 10 Mg Tablet) 10 mg PO BID [facility] Last Admin: 07/03/24 10:39 Dose: Not Given Methylprednisolone Sodium Succinate (Methylprednisolone Sod Succ 40 Mg/Ml Vial) 40 mg IVPUSH Q12H [facility] Last Admin: 07/03/24 10:58 Dose: 40 mg Sodium Chloride (0.9 % Sodium Chloride Flush 3 Ml Syringe) 3 ml IVFLUSH QSHIFT [facility] Last Admin: 07/03/24 09:31 Dose: 3 ml Tamsulosin HCl (Tamsulosin Hcl 0.4 Mg Capsule) 0.8 mg PO BEDTIME [facility] Last Admin: 07/02/24 20:07 Dose: 0.8 mg Trazodone HCl (Trazodone Hcl 50 Mg Tablet) 50 mg PO BEDTIME MRX1 PRN PRN Reason: Insomnia Last Admin: 07/02/24 20:07 Dose: 50 mg Allergies Allergies Allergy/AdvReac Type Severity Reaction Status Date / Time No Known Allergies [NKA] Allergy Unknown NONE Verified 06/19/24 20:43 Assessment & Plan Assessment & Plan (1) Schizoaffective disorder, depressive type: Status: Acute Code(s): F25.1 - Schizoaffective disorder, depressive type (2) Catatonia: Status: Acute Code(s): F06.1 - Catatonic disorder due to known physiological condition (3) Benign prostate hyperplasia: Qualifiers: Lower urinary tract symptom presence: unspecified whether lower urinary tract symptoms present Qualified Code(s): N40.0 - Benign prostatic hyperplasia without lower urinary tract symptoms Status: Acute Code(s): N40.0 - Benign prostatic hyperplasia without lower urinary tract symptoms Plan 59 year old male with history of hypertension, eza-yqpslfx-wmoglhyan type 2 diabetes, schizoaffective disorder, and depression with catatonia admitted to Psychiatry with consult placed to hospitalist service for ECT evaluation. Catatonia Pt with previous well tolerated ECTs. NO history of seizures, chf, cad. No evidence of distress, lungs clear, Heart RRR, no edema. Unfortunately unable to ascertain history/ROS from patient, reviewed with nursing staff EKG reassuring without any dysrhythmia and QTC is reassuring RCRI score 0. At this time, there is no medical contraindication that should preclude patient from undergoing ECT based on available information Give 1L IV LR @500ml/hr given poor PO intake. Consider additional IVF if needed Had tolerated previously Thank you for allowing me to participate in this consult. Signing off at this time. Please do not hesitate to call for further questions or for any acute medical issues 06/26/24 Patient Pt medically cleared 06/25 was lethargic post ect but had lorazepam for catatonia given fluids had ? pneumonia on xray po2 ok on room air see hospitalist consu;t prophlatic antibiotics 06/27/2024 Continue clozapine ECT is possible will not give lorazepam post ECT patient had become quite sedated had tolerated previously Patient intermittently not voiding urine urology consult called we are monitoring 06/28/2024 Anesthesia does not recommend anesthesia and ECT at this time given recent aspiration pneumonia although patient has no fever he is maintaining O2. Periods of being alert he will eat some of his meals consider lorazepam 1 mg IV t.i.d. continue clozapine 06/29 Patient remained catatonic, overall not eating much though a little more than before. He does wave to radio news writer shahram but does not really answer questions. Discussed case with Dr. Huerta who agrees to restart ativan 1mg tid (IV) 06/30 Remains catatonic, eating a little better however. Still not urinating and required straight catheterization x2 today. Patient doing some bizarre behaviors, grasping at things in the air that are not there. Will increase Ativan 1 mg IV to q.i.d. 07/01/24 Pt remains with catatonia with some improvement cloz level in er prior to adm almost 0 pt had not been taking his medication. ect consider ketamine as an alternative to ECT there are reports in the literature not a standard treatment but patient has generally not responded fully to lorazepam nor is he presently able to do ECT. It appears his relapse most likely was secondary to his stopping clozapine 07/02/2024 Continue Namenda ECT presently not an option patient pulse oxygen remains stable requires intermittent straight catheterization tamsulosin 0.8 Continue lorazepam 1 mg 4 times a day. Will increase clozapine 07/03/2024 Limit lorazepam continue Namenda continue clozapine consider Vraylar Check CBC electrolytes start infusion replacement electrolytes patient limited in what he can take in orally hospitalist service has been who following ECT not a current option Reason for continued inpatient stay Substantial Risk for: inability to function, rapid decompensation and med/psych decompensation Time Spent With Patient Time: Total time managing care of this patient today ____ minutes.
--- NOTE | 2024-07-03 15:06 | PC.NURSE ---
This financial underwriter called the [facility] and spoke to Dominick Adkins. She asked for assistance with inserting a midline into this patient. He stated that he will contact assistance and sent them to this unit.
[2024-07-03] MEDS: LORazepam 2 MG/ML VIAL 1 MG IVPUSH (15:31)
[2024-07-03] MEDS: LORazepam 1 MG TABLET PO (18:27)
[2024-07-03 18:42] LABS: Anion Gap 16 (12-20); Blood Urea Nitrogen 26 mg/dL (9-16); Calcium 9.5 mg/dL (8.4-10.2); Carbon Dioxide 20 mmol/L (22-29); Chloride 113 mmol/L (96-108); Estimated Glomerular Filt Rate 55; Glucose Random 132 mg/dL (60-115); Potassium 4.7 mmol/L (3.3-5.1); Sodium 144 mmol/L (135-145)
[2024-07-03 19:11] LABS: Troponin-I High Sensitivity 6.2 ng/L (<3.5-35.0)
[2024-07-03 20:54] LABS: Troponin-I High Sensitivity 6.1 ng/L (<3.5-35.0)
[2024-07-03 22:00] VITALS: BP 129/74; PULSE 100; RESP 18; TEMP 36.7; O2SAT 97
[2024-07-03] MEDS: Memantine HCl 10 MG TABLET PO (22:23)
[2024-07-03] MEDS: Sennosides/Docusate Sodium TABLET 1 TAB PO (22:23)
[2024-07-03] MEDS: Tamsulosin HCL 0.4 MG CAPSULE 0.8 MG PO (22:23)
[2024-07-03] MEDS: Milk of Magnesia 30 ML ORAL.SUSP PO (22:25)
[2024-07-03] MEDS: cloZAPine 25 MG TABLET PO (22:25)
[2024-07-03] MEDS: cloZAPine 100 MG TABLET 200 MG PO (22:25)
[2024-07-03] MEDS: Nystatin Powder 15 GM BOTTLE 1 APPL TOPICAL (22:37)
[2024-07-04] MEDS: Enoxaparin Sodium 40 MG/0.4 ML SYRINGE SUBCUT (08:55)
[2024-07-04] MEDS: Finasteride 5 MG TABLET PO (09:00)
[2024-07-04] MEDS: LORazepam 2 MG/ML VIAL 1 MG IVPUSH ×2 (09:19→14:14)
[2024-07-04] MEDS: methylPREDNISolone Sod Succ 40 MG/ML VIAL 20 MG IVPUSH (09:20)
[2024-07-04 09:50] LABS: Anion Gap 13 (12-20); Blood Urea Nitrogen 23 mg/dL (9-16); Carbon Dioxide 25 mmol/L (22-29); Chloride 111 mmol/L (96-108); Creatinine Clr Calc Pharmacy 74.6; Estimated Glomerular Filt Rate > 60; Glucose Random 94 mg/dL (60-115); Sodium 145 mmol/L (135-145)
--- NOTE | 2024-07-04 09:57 | P.PNPSI_ITS ---
Subjective Subjective Date of Service: 07/04/24 Reason For Visit: Catatonia Subjective Notes: Conditional Voluntary Healthcare Proxy: Yes Interim History: The patient remains in a state of confusion agitation agitated catatonia ? contibuted to by steroids. Midline placed pt remains on 1.1 has not had bowel movement au placed rec by hosp service. physically motoric ? brief episode of myoclonus . Medication Compliance: Intermittent Mental Status Exam Mental Status Exam Narrative: Patient awake but not processing information odd affect at times labile saying things in a nonsensical manner at times echolalia he can respond to his name can focus for brief periods not aggressive generally no active SI or HI noted Periods of psychomotor agitation kicking grabbing Diagnostics Vital Signs (24Hr): Vital Signs - 24 hr 07/03/24 11:12 07/03/24 22:00 Temperature 98.1 F Pulse Rate 100 Respiratory Rate 18 Blood Pressure 129/74 Pulse Oximetry 97 97 Oxygen Delivery Method Nasal Cannula Room Air Oxygen Flow Rate 2 BMI result Body Mass Index 26.6 Labs 07/03/24 09:46 07/04/24 09:29 Labs: Laboratory Results - last 48 hr 07/03/24 07/03/24 07/03/24 09:46 18:20 20:21 WBC 6.1 RBC 4.06 L Hgb 11.6 L Hct 34.8 L MCV 85.7 MCH 28.6 MCHC 33.3 RDW 13.6 Plt Count 143 L MPV 12.9 H Immature Gran % (Auto) 0.3 Neut % (Auto) 66.0 Lymph % (Auto) 24.9 Trinity % (Auto) 8.6 Eos % (Auto) 0.0 Baso % (Auto) 0.2 Lymph # (Auto) 1.5 Trinity # (Auto) 0.5 Eos # (Auto) 0.0 Baso # (Auto) 0.0 Abs Immat Gran (auto) Not Reportable Absolute Neuts (auto) 4.1 Absolute Nucleated RBC 0.000 Nucleated RBC % (auto) 0.0 Sodium 144 Potassium 4.7 Chloride 113 H Carbon Dioxide 20 L Anion Gap 16 BUN 26 H Creatinine 1.33 Estim Creat Clear Calc 64.0 Estimated GFR 55 Random Glucose 132 H Calcium 9.5 D Troponin I High Sens 6.2 D 6.1 07/04/24 09:29 WBC RBC Hgb Hct MCV MCH MCHC RDW Plt Count MPV Immature Gran % (Auto) Neut % (Auto) Lymph % (Auto) Trinity % (Auto) Eos % (Auto) Baso % (Auto) Lymph # (Auto) Trinity # (Auto) Eos # (Auto) Baso # (Auto) Abs Immat Gran (auto) Absolute Neuts (auto) Absolute Nucleated RBC Nucleated RBC % (auto) Sodium 145 Potassium 4.0 Chloride 111 H Carbon Dioxide 25 Anion Gap 13 BUN 23 H Creatinine 1.14 Estim Creat Clear Calc 74.6 Estimated GFR > 60 Random Glucose 94 Calcium 9.0 Troponin I High Sens Imaging Radiology Impressions: ITS Impressions Chest X-Ray 06/26/24 13:05 IMPRESSION: Airspace opacity at the right lung base which may represent pneumonia. Follow-up is recommended. Electronically signed by: Jacob Hope MD 06/26/2024 01:50 PM EDT RP Chest X-Ray 07/03/24 09:10 IMPRESSION: Mild elevation of the right hemidiaphragm. The lungs are clear. Electronically signed by: Jacob Hope MD 07/03/2024 09:38 AM EDT RP KUB X-Ray 07/03/24 18:00 IMPRESSION: Large amount of stool throughout the colon. No evidence of bowel obstruction. Electronically signed by: Jacob Hope MD 07/04/2024 07:14 AM EDT RP Medications Medications Current Medications Acetaminophen (Acetaminophen 325 Mg Tablet) 650 mg PO Q6H PRN PRN Reason: Headache/Pain, Scale 1-10 Last Admin: 06/26/24 20:53 Dose: 650 mg Al Hydroxide/Mg Hydroxide (Magnesium Hydrox/Alum Hydrox 30 Ml Oral.Susp) 30 ml PO Q6H PRN PRN Reason: Heartburn/Nausea Albuterol/Ipratropium (Albuterol/Iprat 2.5/0.5mg 3 Ml Ampul.Neb) 3 ml INHALE TID PRN PRN Reason: Shortness of Breath/Wheezing Clozapine (Clozapine 100 Mg Tablet) [address] [facility] Last Admin: 07/03/24 22:25 Dose: 200 mg Enoxaparin Sodium (Enoxaparin Sodium 40 Mg/0.4 Ml Syringe) [address] [facility] Last Admin: 07/04/24 08:55 Dose: 40 mg Finasteride (Finasteride 5 Mg Tablet) [address] [facility] Last Admin: 07/04/24 09:00 Dose: 5 mg Lactated Ringer's (Lr) 1,000 mls @ 150 mls/hr IVCONT .Q6H40M [facility] Last Admin: 06/26/24 10:35 Dose: Not Given Lactated Ringer's (Lr) 1,000 mls @ 100 mls/hr IVCONT .Q10H [facility] Last Admin: 07/03/24 23:30 Dose: 100 mls/hr Lorazepam (Lorazepam 2 Mg/Ml Vial) [address] [facility] Last Admin: 07/03/24 09:34 Dose: Not Given Magnesium Hydroxide (Milk Of Magnesia 30 Ml Oral.Susp) 30 ml PO DAILY PRN PRN Reason: Constipation Last Admin: 07/03/24 22:25 Dose: 30 ml Memantine (Memantine Hcl 10 Mg Tablet) [address] [facility] Last Admin: 07/04/24 09:01 Dose: Not Given Methylprednisolone Sodium Succinate (Methylprednisolone Sod Succ 40 Mg/Ml Vial) [address] [facility] Last Admin: 07/04/24 09:20 Dose: 20 mg Nystatin (Nystatin Powder 15 Gm Bottle) [address] [facility]; Protocol Last Admin: 07/03/24 22:37 Dose: 1 appl Senna/Docusate Sodium (Sennosides/Docusate Sodium Tablet) [address] [facility] Last Admin: 07/03/24 22:23 Dose: 1 tab Sodium Chloride (0.9 % Sodium Chloride Flush 3 Ml Syringe) [address] [facility] Last Admin: 07/04/24 08:54 Dose: Not Given Tamsulosin HCl (Tamsulosin Hcl 0.4 Mg Capsule) 0.[address] [facility] Last Admin: 07/03/24 22:23 Dose: 0.8 mg Trazodone HCl (Trazodone Hcl 50 Mg Tablet) 50 mg PO BEDTIME [facility]1 PRN PRN Reason: Insomnia Last Admin: 07/02/24 20:07 Dose: 50 mg Allergies Allergies Allergy/AdvReac Type Severity Reaction Status Date / Time No Known Allergies [NKA] Allergy Unknown NONE Verified 06/19/24 20:43 Assessment & Plan Assessment & Plan (1) Schizoaffective disorder, depressive type: Status: Acute Code(s): F25.1 - Schizoaffective disorder, depressive type (2) Catatonia: Status: Acute Code(s): F06.1 - Catatonic disorder due to known physiological condition (3) Benign prostate hyperplasia: Qualifiers: Lower urinary tract symptom presence: unspecified whether lower urinary tract symptoms present Qualified Code(s): N40.0 - Benign prostatic hyperplasia without lower urinary tract symptoms Status: Acute Code(s): N40.0 - Benign prostatic hyperplasia without lower urinary tract symptoms Plan 59 year old male with history of hypertension, [id number] type 2 diabetes, schizoaffective disorder, and depression with catatonia admitted to Psychiatry with consult placed to hospitalist service for ECT evaluation. Catatonia Pt with previous well tolerated ECTs. NO history of seizures, chf, cad. No evidence of distress, lungs clear, Heart RRR, no edema. Unfortunately unable to ascertain history/ROS from patient, reviewed with nursing staff EKG reassuring without any dysrhythmia and QTC is reassuring RCRI score 0. At this time, there is no medical contraindication that should preclude patient from undergoing ECT based on available information Give 1L IV LR @500ml/hr given poor PO intake. Consider additional IVF if needed Had tolerated previously Thank you for allowing me to participate in this consult. Signing off at this time. Please do not hesitate to call for further questions or for any acute medical issues 06/26/24 Patient Pt medically cleared 06/25 was lethargic post ect but had lorazepam for catatonia given fluids had ? pneumonia on xray po2 ok on room air see hospitalist consu;t prophlatic antibiotics 06/27/2024 Continue clozapine ECT is possible will not give lorazepam post ECT patient had become quite sedated had tolerated previously Patient intermittently not voiding urine urology consult called we are monitoring 06/28/2024 Anesthesia does not recommend anesthesia and ECT at this time given recent aspiration pneumonia although patient has no fever he is maintaining O2. Periods of being alert he will eat some of his meals consider lorazepam 1 mg IV t.i.d. continue clozapine 06/29 Patient remained catatonic, overall not eating much though a little more than before. He does wave to marine underwriter shahram but does not really answer questions. Discussed case with Dr. Huerta who agrees to restart ativan 1mg tid (IV) 06/30 Remains catatonic, eating a little better however. Still not urinating and required straight catheterization x2 today. Patient doing some bizarre behaviors, grasping at things in the air that are not there. Will increase Ativan 1 mg IV to q.i.d. 07/01/24 Pt remains with catatonia with some improvement cloz level in er prior to adm almost 0 pt had not been taking his medication. ect consider ketamine as an alternative to ECT there are reports in the literature not a standard treatment but patient has generally not responded fully to lorazepam nor is he presently able to do ECT. It appears his relapse most likely was secondary to his stopping clozapine 07/02/2024 Continue Namenda ECT presently not an option patient pulse oxygen remains stable requires intermittent straight catheterization tamsulosin 0.8 Continue lorazepam 1 mg 4 times a day. Will increase clozapine 07/03/2024 Limit lorazepam continue Namenda continue clozapine consider Vraylar Check CBC electrolytes start infusion replacement electrolytes patient limited in what he can take in orally hospitalist service has been who following ECT not a current option 07/04/24 excited catatonia myoclous noted lower clozapine monitor response olanzapine for agaitation have been limiting lorazaepam sec to risk oversedation Reason for continued inpatient stay Substantial Risk for: inability to function, rapid decompensation and med/psych decompensation Time Spent With Patient Time: Total time managing care of this patient today ____ minutes.
[2024-07-04 10:00] VITALS: BP 158/77; PULSE 95; RESP 18; TEMP 36.7; O2SAT 94
[2024-07-04 10:08] LABS: Magnesium 2.1 mg/dL (1.6-2.6)
--- NOTE | 2024-07-04 10:56 | HO.MIDLINE_ITS ---
Midline Insertion MIDLINE INSERTION Diagnosis: Catatonia Indication: IV Fluids and medications Pertinent Labs: Reviewed Technique: Using sterile technique including cap and mask, glove and drape, the arm was prepped and draped in the usual sterile fashion of full barrier technique with CHG. Using ultrasound guidance, the patent left cephalic vein access was obtained in multiple attempts by this RN. a 20 guage 8 cm Non-PASV midline was positioned. The procedure was performed in 272. Ultrasound was used to document vein patency and for needle entry. A formal ultrasound picture was recorded. Vascular Expanding Machine Operator has released the line for use and it is currently dressed with a StatLock, Tegaderm, and CHG disc. Verification has been performed for blood return and line patency. Arm Circumference: 35 cm Equipment: BARD PowerGlide ST Midline Catheter Catheter Type: 20 guage 8 cm Non-PASV midline catheter Lot #: [id number]
--- NOTE | 2024-07-04 11:08 | PC.NURSE ---
NOTE ENTERED LATE, INCIDENT HAPPENED ON 07/03/2024: Pt was having a KUB portable on unit. After this imaging was completed, this verse writer entered pt.'s room and upon entering noticed that he was diaphoretic. VSS. Provider contacted by this verse writer, and he ordered EKG and Troponin levels. She also had provider on the unit come and assess pt.
--- NOTE | 2024-07-04 11:12 | PC.NURSE ---
Per RN who placed the midline into left upper arm, blood may be drawn from this lumen, however, 30cc's need to be flushed through imidiately. When flushing each of the three 10 cc flushes, push through in a pulsing motion. This will extend the life of the catheter.
[2024-07-04] MEDS: Lactated Ringers 1,000 ML 100 ML IVCONT (12:28)
[2024-07-04] MEDS: Nystatin Powder 15 GM BOTTLE 1 APPL TOPICAL ×3 (12:37→21:03)
[2024-07-04] MEDS: OLANZapine ODT 10 MG TAB.RAPDIS 5 MG TRANSLINGU ×2 (14:13→20:36)
--- NOTE | 2024-07-04 17:50 | MHC.SL.SWA ---
Speech Pathologist Impression: Risk of Aspiration Due to: Neurological Condition Dysphasia Diet Status: Recommend UPGRADE liquids to REGULAR, continue on current diet of puree, with pills crushed in puree. Liquid Consistency and Strategies for Safe Swallow: Liquid Intake Recommendation: Thin Liquid Intake Strategies: Small Sips No Straws Solid Food Consistency: Dietary Recommendations: Pureed (NDD1) Additional Modifications to Solid Foods: Oral Medication Intake: Crushed with Puree Please contact the pharmacy regarding appropriate crushable or liquid drug formulations that are available whenever modified delivery is recommended. Compensatory Strategies and Precautions to be Taken for Safe Swallow: Sitting Upright (90 deg) Liquids from Cup Small Bites and Sips Alternate Liquids/Solids Supervision While Eating and Drinking for Safe Swallow: Total Supervision (1:1) Foods to Avoid: Mixed consistencies Swallowing Recommended Treatments: Compens. Strategy Educat. Recommendation for Speech: Inpatient Speech Therapy Modified Barium Swallow Study - Inpatient Comment: Benjamin was seen at mid-day today, with RN reporting he had not participated in lunch and was in his room. He was lying down, though awake, with sitter in his room, with Benjamin talking to himself. Patient is familiar to this therapist, noted on this visit, he was demonstrating more facial expression that previously noted. However, although he was quite verbal, responses were non-sensical, garbled. With Benjamin sitting upright in bed, he was offered a water bottle to sip from to re-assess swallow. Unfortunately, he grasped bottle tightly, sending water down his front and onto his sheets. It was somewhat difficult to remove the water bottle from his grasp. He was then given a controlled sip of water, with Benjamin producing a timely swallow, no clinical signs of aspiration, noted on 3-4 trials sips of water. No further trials were attempted today. Recommend UPGRADE liquids to REGULAR, continue on current diet of puree. SUPERVISOR UNLOADING made adjustment in diet/expanse advised RN and will continue to follow. Frequency/Duration: Daily M-F Date Range for Service Req: Timeline to reassess: Saw Feeder Clinican/Clinical Fellow: No Supervisory Statement: I have reviewed and agree with the student/clinical fellow's documentation: N/A Speech Language Pathologist: Vicki Jane M.A., CCC-SUPERVISOR UNLOADING
[2024-07-04] MEDS: traZODone HCL 50 MG TABLET PO (20:36)
[2024-07-04] MEDS: cloZAPine 25 MG TABLET 150 MG PO (20:36)
[2024-07-04] MEDS: bisacodyL 5 MG TABLET.DR PO (20:36)
[2024-07-04] MEDS: Sennosides/Docusate Sodium TABLET 1 TAB PO (20:37)
[2024-07-04] MEDS: Memantine HCl 10 MG TABLET PO (20:37)
[2024-07-04] MEDS: Tamsulosin HCL 0.4 MG CAPSULE 0.8 MG PO (20:37)
[2024-07-04] MEDS: LORazepam 1 MG TABLET PO ×2 (21:03→22:48)
[2024-07-05] MEDS: Lactated Ringers 1,000 ML 100 ML IVCONT (04:59)
[2024-07-05 09:56] VITALS: BP 143/66; PULSE 83; RESP 16; TEMP 37.4; O2SAT 94
[2024-07-05] MEDS: Memantine HCl 10 MG TABLET PO ×2 (09:58→20:55)
[2024-07-05] MEDS: Enoxaparin Sodium 40 MG/0.4 ML SYRINGE SUBCUT (09:58)
[2024-07-05] MEDS: Finasteride 5 MG TABLET PO (09:58)
[2024-07-05] MEDS: Nystatin Powder 15 GM BOTTLE 1 APPL TOPICAL ×3 (09:58→20:55)
[2024-07-05] MEDS: LORazepam 1 MG TABLET PO ×3 (10:03→20:55)
--- NOTE | 2024-07-05 11:08 | PM.EVENT ---
Event Note Date of Service: 07/05/24 Event Note: Follow up for 59-year-old male with hx of catatonia admitted to [facility]. Pt has previously been noted to be hypoxic and treated for aspiration pneumonia and then started on steroids for aspiration pneumonitis. Steroids initially made pt agitated and will reduced to 20 mg IV daily. Pt continues to be agitated, likely secondary to steroids. Will hold steroids for now. Pt also has been seen by both speech and nutrition. Nutrition recommended TPN due to catatonia. However, pt has been tolerating a pureed diet with thin liquids recently. This morning pt ate 100% of his breakfast and drank 480 mL of fluid. Pt apparently did not have difficulty handling his diet; no cough, regurgitation, or signs of aspiration noted. Given that pt is tolerating his diet and has increased his p.o. intake, no need for TPN at this time. Will also stop IVF. Pt will continue to be one-to-one and total assist for food. Time Spent With Patient Time: Total time managing care of this patient today ____ minutes.
[2024-07-05] MEDS: OLANZapine ODT 10 MG TAB.RAPDIS 5 MG TRANSLINGU ×2 (11:50→23:21)
--- NOTE | 2024-07-05 14:31 | MHC.CLN ---
F/U NUTRITION CONSULT FOR CONCERN THAT NOT EATING/DRINKING ENOUGH TO SATISFY NUTRITIONAL NEEDS. RD PROPOSED ARTIFICIAL NUTRITION VIA NG TUBE FEEDING OR PPN. PATIENT NOW WITH IMPROVED PO INTAKE AND ARTIFICIAL NUTRITION NOT NEEDED AT THIS TIME. DIET=PUREE PER STONE DRESSER REC. ADDING ENSURE TID (1050 KCALS, 60 G PROTEIN) AND MAGIC CUP TID (870 KCALS, 27 G PROTEIN). SUPPLEMENT TO INCREASE NUTRITIONAL INTAKE. VARIABLE PO INTAKE SINCE ADM. CONTINUE TO FOLLOW FOR PO INTAKE AND ENCOURAGE SUPPLEMENTS ABLE.
[2024-07-05] MEDS: Milk of Magnesia 30 ML ORAL.SUSP PO (14:42)
[2024-07-05] MEDS: Heparin Sodium,Porcine Flush 50 UNITS, 0.9 % Sodium Chloride Flush 5 ML IVFLUSH ×2 (17:16→21:10)
[2024-07-05] MEDS: cloZAPine 25 MG TABLET 150 MG PO (20:54)
[2024-07-05] MEDS: Sennosides/Docusate Sodium TABLET 1 TAB PO (20:55)
[2024-07-05] MEDS: Tamsulosin HCL 0.4 MG CAPSULE 0.8 MG PO (20:56)
--- NOTE | 2024-07-05 21:14 | HO.PSYCHPN ---
Subjective Subjective Date of Service: 07/05/24 Reason For Visit: Catatonia Subjective Notes: Conditional Voluntary Healthcare Proxy: Yes Interim History: Patient seen psychiatric follow-up case reviewed with hospitalist service case reviewed in treatment team. Patient has been having more intake he is periodically activated and restless. There had been a question pneumonitis and was on steroids intravenous. Instead of akinetic catatonia he seems to have shifted to more excited catatonia. Unclear if this a result of lowering lorazepam question steroid induced excitation ECT presently on hold per anesthesia. Intermittently taking p.o. medication and food and fluids Medication Compliance: Intermittent Mental Status Exam Mental Status Exam Narrative: Does respond to name at times Patient Appearance: Disheveled, Perspiring, Unkempt and Rigid Level of Consciousness: Restless and Obtunded Patient Behavior: Passive and Resistive to Care Affect Description: Blunted and Flat Patient Cognition Impaired: Yes Ability to Follow Directions: Poor Speech Pattern: Aphasic Abnormal Motor Activity Signs and Symptoms: Muscle Rigidity and Restlessness Judgement: Poor Diagnostics Vital Signs (24Hr): Vital Signs - 24 hr 07/05/24 09:56 Temperature 99.3 F Pulse Rate 83 Respiratory Rate 16 Blood Pressure 143/66 H Pulse Oximetry 94 Oxygen Delivery Method Room Air BMI result Body Mass Index 26.6 Labs 07/03/24 09:46 07/04/24 09:29 Labs: Laboratory Results - last 48 hr 07/04/24 09:29 Sodium 145 Potassium 4.0 Chloride 111 H Carbon Dioxide 25 Anion Gap 13 BUN 23 H Creatinine 1.14 Estim Creat Clear Calc 74.6 Estimated GFR > 60 Random Glucose 94 Calcium 9.0 Magnesium 2.1 Imaging Radiology Impressions: ITS Impressions Chest X-Ray 06/26/24 13:05 IMPRESSION: Airspace opacity at the right lung base which may represent pneumonia. Follow-up is recommended. Electronically signed by: Jacob Hope MD 06/26/2024 01:50 PM EDT RP Chest X-Ray 07/03/24 09:10 IMPRESSION: Mild elevation of the right hemidiaphragm. The lungs are clear. Electronically signed by: Jacob Hope MD 07/03/2024 09:38 AM EDT RP KUB X-Ray 07/03/24 18:00 IMPRESSION: Large amount of stool throughout the colon. No evidence of bowel obstruction. Electronically signed by: Jacob Hope MD 07/04/2024 07:14 AM EDT RP Medications Medications Current Medications Acetaminophen (Acetaminophen 325 Mg Tablet) 650 mg PO Q6H PRN PRN Reason: Headache/Pain, Scale 1-10 Last Admin: 06/26/24 20:53 Dose: 650 mg Al Hydroxide/Mg Hydroxide (Magnesium Hydrox/Alum Hydrox 30 Ml Oral.Susp) 30 ml PO Q6H PRN PRN Reason: Heartburn/Nausea Albuterol/Ipratropium (Albuterol/Iprat 2.5/0.5mg 3 Ml Ampul.Neb) 3 ml INHALE TID PRN PRN Reason: Shortness of Breath/Wheezing Clozapine (Clozapine 25 Mg Tablet) 150 mg PO BEDTIME [facility] Last Admin: 07/04/24 20:36 Dose: 150 mg Heparin Sodium (Porcine) 50 (units/ Sodium Chloride 5 ml) 0 units IVFLUSH TID [facility] Last Admin: 07/05/24 17:16 Dose: 50 unit Enoxaparin Sodium (Enoxaparin Sodium 40 Mg/0.4 Ml Syringe) 40 mg SUBCUT Q24H [facility] Last Admin: 07/05/24 09:58 Dose: 40 mg Finasteride (Finasteride 5 Mg Tablet) 5 mg PO DAILY [facility] Last Admin: 07/05/24 09:58 Dose: 5 mg Lorazepam (Lorazepam 2 Mg/Ml Vial) 1 mg IVPUSH QID [facility] Last Admin: 07/03/24 09:34 Dose: Not Given Lorazepam (Lorazepam 1 Mg Tablet) 1 mg PO TID [facility] Last Admin: 07/05/24 14:44 Dose: 1 mg Magnesium Hydroxide (Milk Of Magnesia 30 Ml Oral.Susp) 30 ml PO DAILY PRN PRN Reason: Constipation Last Admin: 07/05/24 14:42 Dose: 30 ml Memantine (Memantine Hcl 10 Mg Tablet) 10 mg PO BID [facility] Last Admin: 07/05/24 09:58 Dose: 10 mg Nystatin (Nystatin Powder 15 Gm Bottle) 1 appl TOPICAL TID [facility]; Protocol Last Admin: 07/05/24 17:16 Dose: 1 appl Olanzapine (Olanzapine Odt 10 Mg Tab.Rapdis) 5 mg TRANSLINGU BID PRN PRN Reason: psychotic agitation Last Admin: 07/05/24 11:50 Dose: 5 mg Senna/Docusate Sodium (Sennosides/Docusate Sodium Tablet) 1 tab PO BEDTIME [facility] Last Admin: 07/04/24 20:37 Dose: 1 tab Tamsulosin HCl (Tamsulosin Hcl 0.4 Mg Capsule) 0.8 mg PO BEDTIME [facility] Last Admin: 07/04/24 20:37 Dose: 0.8 mg Allergies Allergies Allergy/AdvReac Type Severity Reaction Status Date / Time No Known Allergies [NKA] Allergy Unknown NONE Verified 06/19/24 20:43 Assessment & Plan Assessment & Plan (1) Schizoaffective disorder, depressive type: Status: Acute Code(s): F25.1 - Schizoaffective disorder, depressive type (2) Catatonia: Status: Acute Code(s): F06.1 - Catatonic disorder due to known physiological condition (3) Benign prostate hyperplasia: Qualifiers: Lower urinary tract symptom presence: unspecified whether lower urinary tract symptoms present Qualified Code(s): N40.0 - Benign prostatic hyperplasia without lower urinary tract symptoms Status: Acute Code(s): N40.0 - Benign prostatic hyperplasia without lower urinary tract symptoms Plan 59 year old male with history of hypertension, mmv-sueuxuk-[id number] type 2 diabetes, schizoaffective disorder, and depression with catatonia admitted to Psychiatry with consult placed to hospitalist service for ECT evaluation. Catatonia Pt with previous well tolerated ECTs. NO history of seizures, chf, cad. No evidence of distress, lungs clear, Heart RRR, no edema. Unfortunately unable to ascertain history/ROS from patient, reviewed with nursing staff EKG reassuring without any dysrhythmia and QTC is reassuring RCRI score 0. At this time, there is no medical contraindication that should preclude patient from undergoing ECT based on available information Give 1L IV LR @500ml/hr given poor PO intake. Consider additional IVF if needed Had tolerated previously Thank you for allowing me to participate in this consult. Signing off at this time. Please do not hesitate to call for further questions or for any acute medical issues 06/26/24 Patient Pt medically cleared 06/25 was lethargic post ect but had lorazepam for catatonia given fluids had ? pneumonia on xray po2 ok on room air see hospitalist consu;t prophlatic antibiotics 06/27/2024 Continue clozapine ECT is possible will not give lorazepam post ECT patient had become quite sedated had tolerated previously Patient intermittently not voiding urine urology consult called we are monitoring 06/28/2024 Anesthesia does not recommend anesthesia and ECT at this time given recent aspiration pneumonia although patient has no fever he is maintaining O2. Periods of being alert he will eat some of his meals consider lorazepam 1 mg IV t.i.d. continue clozapine 06/29 Patient remained catatonic, overall not eating much though a little more than before. He does wave to story writer shahram but does not really answer questions. Discussed case with Dr. Huerta who agrees to restart ativan 1mg tid (IV) 06/30 Remains catatonic, eating a little better however. Still not urinating and required straight catheterization x2 today. Patient doing some bizarre behaviors, grasping at things in the air that are not there. Will increase Ativan 1 mg IV to q.i.d. 07/01/24 Pt remains with catatonia with some improvement cloz level in er prior to adm almost 0 pt had not been taking his medication. ect consider ketamine as an alternative to ECT there are reports in the literature not a standard treatment but patient has generally not responded fully to lorazepam nor is he presently able to do ECT. It appears his relapse most likely was secondary to his stopping clozapine 07/02/2024 Continue Namenda ECT presently not an option patient pulse oxygen remains stable requires intermittent straight catheterization tamsulosin 0.8 Continue lorazepam 1 mg 4 times a day. Will increase clozapine 07/03/2024 Limit lorazepam continue Namenda continue clozapine consider Vraylar Check CBC electrolytes start infusion replacement electrolytes patient limited in what he can take in orally hospitalist service has been who following ECT not a current option 07/04/24 excited catatonia myoclous noted lower clozapine monitor response olanzapine for agaitation have been limiting lorazaepam sec to risk oversedation 07/05/2024 Excited catatonia periods of myoclonus restart lorazepam steroids held case reviewed with hospitalist service monitor for over-sedation clozapine lowered in case contributing factor patient afebrile. Case reviewed from a number of years ago when the patient had been in the hospital for about 4 months at that time did not respond to ECT and eventually was discharged on a combination of lithium sertraline clozapine and olanzapine Reason for continued inpatient stay Substantial Risk for: inability to function, rapid decompensation and med/psych decompensation Time Spent With Patient Time: Total time managing care of this patient today _35___ minutes.
[2024-07-05 22:00] VITALS: BP 166/85; PULSE 60; RESP 18; TEMP 36.5; O2SAT 92
--- NOTE | 2024-07-06 04:12 | PC.NURSE ---
Pt. at the beginning of the shift is restless w/ impulsive rising, confused w/ non-sensical speech. Pt keep on putting his legs on the side rails of the bed. During med administration of the Heparin IV flush and 0.9% NS flush pt. is very movable and keep on grabbing on the staff. This jingle writer ask the help of the [facility] to hold the hands of the pt. so the heparin flush could be given but the pt. swing his arm and hit the face of the [facility]. Seamer Operator- Anna Conway informed of the incident. Pt. given PRN Zyprexa Zydis 5 mg. w/ effect. Pt calm down and able to sleep.
--- NOTE | 2024-07-06 04:43 | PC.NURSE ---
Pt pulled out the IV line at around 22;00H.
[2024-07-06 07:55] VITALS: BP 130/68; PULSE 74; RESP 18; TEMP 36.8; O2SAT 96
[2024-07-06] MEDS: LORazepam 1 MG TABLET PO ×2 (08:24→19:50)
[2024-07-06] MEDS: Memantine HCl 10 MG TABLET PO (08:27)
[2024-07-06] MEDS: Finasteride 5 MG TABLET PO (08:29)
[2024-07-06] MEDS: Nystatin Powder 15 GM BOTTLE 1 APPL TOPICAL (09:06)
--- NOTE | 2024-07-06 09:28 | HO.PSYCHPN ---
Subjective Subjective Date of Service: 07/06/24 Reason For Visit: Catatonia Subjective Notes: Conditional Voluntary Healthcare Proxy: Yes Guardianship: No Medical Problems Affecting Mental Status: Yes (delerious) Interim History: 59 yo WM with delerium= had stopped clozapine - takes 2 wks to come back hypoxia after ect- so stopped ect- Namenda used for catatonia- 1 wk ago - also started on solumedrol- ? pneumonitis- which has been stopped last few days- [address] Doe- 4 mo hosp clozapine and olanzapine- Went back and reviewed this 2012 admit and in addition to clozapine 200mg and olanzapine, they added lithium and sertraline but will wait till he is better for this as lithium could just add more s/e risks- and depression can not be assessed in this state. Medication Compliance: Yes Side effects from medications: Yes (? possible confusion on mementitine) Attending Groups: No Review of Systems Acute medical concerns: Yes delerious Review of Systems: pulled out pic line, still has urine cath and is putting out urine Mental Status Exam Mental Status Exam Narrative: Ox0 Patient Appearance: Disheveled, Perspiring, Unkempt and Rigid Level of Consciousness: Restless, Obtunded and Combative (grabbing at staff if they get near to give physical care- ie adls) Patient Behavior: Passive and Resistive to Care Patient Cognition Impaired: Yes Ability to Follow Directions: Poor Speech Pattern: Aphasic Abnormal Motor Activity Signs and Symptoms: Muscle Rigidity and Restlessness Judgement: Poor Diagnostics Vital Signs (24Hr): Vital Signs - 24 hr 07/05/24 09:56 07/05/24 22:00 07/06/24 07:55 Temperature 99.3 F 97.7 F 98.2 F Pulse Rate 83 60 74 Respiratory Rate 16 18 18 Blood Pressure 143/66 H 166/85 H 130/68 Pulse Oximetry 94 92 96 Oxygen Delivery Method Room Air Room Air Room Air BMI result Body Mass Index 26.6 Labs 07/03/24 09:46 07/04/24 09:29 Labs: Laboratory Results - last 48 hr 07/04/24 09:29 Sodium 145 Potassium 4.0 Chloride 111 H Carbon Dioxide 25 Anion Gap 13 BUN 23 H Creatinine 1.14 Estim Creat Clear Calc 74.6 Estimated GFR > 60 Random Glucose 94 Calcium 9.0 Magnesium 2.1 Imaging Radiology Impressions: ITS Impressions Chest X-Ray 06/26/24 13:05 IMPRESSION: Airspace opacity at the right lung base which may represent pneumonia. Follow-up is recommended. Electronically signed by: Jacob Hope MD 06/26/2024 01:50 PM EDT RP Chest X-Ray 07/03/24 09:10 IMPRESSION: Mild elevation of the right hemidiaphragm. The lungs are clear. Electronically signed by: Jacob Hope MD 07/03/2024 09:38 AM EDT RP KUB X-Ray 07/03/24 18:00 IMPRESSION: Large amount of stool throughout the colon. No evidence of bowel obstruction. Electronically signed by: Jacob Hope MD 07/04/2024 07:14 AM EDT RP Medications Medications Current Medications Acetaminophen (Acetaminophen 325 Mg Tablet) 650 mg PO Q6H PRN PRN Reason: Headache/Pain, Scale 1-10 Last Admin: 06/26/24 20:53 Dose: 650 mg Al Hydroxide/Mg Hydroxide (Magnesium Hydrox/Alum Hydrox 30 Ml Oral.Susp) 30 ml PO Q6H PRN PRN Reason: Heartburn/Nausea Albuterol/Ipratropium (Albuterol/Iprat 2.5/0.5mg 3 Ml Ampul.Neb) 3 ml INHALE TID PRN PRN Reason: Shortness of Breath/Wheezing Clozapine (Clozapine 25 Mg Tablet) 150 mg PO BEDTIME [facility] Last Admin: 07/05/24 20:54 Dose: 150 mg Heparin Sodium (Porcine) 50 (units/ Sodium Chloride 5 ml) 0 units IVFLUSH TID [facility] Last Admin: 07/06/24 08:41 Dose: Not Given Enoxaparin Sodium (Enoxaparin Sodium 40 Mg/0.4 Ml Syringe) 40 mg SUBCUT Q24H [facility] Last Admin: 07/06/24 08:40 Dose: Not Given Finasteride (Finasteride 5 Mg Tablet) 5 mg PO DAILY [facility] Last Admin: 07/06/24 08:29 Dose: 5 mg Lorazepam (Lorazepam 2 Mg/Ml Vial) 1 mg IVPUSH QID [facility] Last Admin: 07/03/24 09:34 Dose: Not Given Lorazepam (Lorazepam 1 Mg Tablet) 1 mg PO TID [facility] Last Admin: 07/06/24 08:24 Dose: 1 mg Magnesium Hydroxide (Milk Of Magnesia 30 Ml Oral.Susp) 30 ml PO DAILY PRN PRN Reason: Constipation Last Admin: 07/05/24 14:42 Dose: 30 ml Memantine (Memantine Hcl 10 Mg Tablet) 10 mg PO BID [facility] Last Admin: 07/06/24 08:27 Dose: 10 mg Nystatin (Nystatin Powder 15 Gm Bottle) 1 appl TOPICAL TID KRISTIN; Protocol Last Admin: 07/06/24 09:06 Dose: 1 appl Olanzapine (Olanzapine Odt 10 Mg Tab.Rapdis) 5 mg TRANSLINGU BID PRN PRN Reason: psychotic agitation Last Admin: 07/05/24 23:21 Dose: 5 mg Senna/Docusate Sodium (Sennosides/Docusate Sodium Tablet) 1 tab PO BEDTIME [facility] Last Admin: 07/05/24 20:55 Dose: 1 tab Tamsulosin HCl (Tamsulosin Hcl 0.4 Mg Capsule) 0.8 mg PO BEDTIME [facility] Last Admin: 07/05/24 20:56 Dose: 0.8 mg Allergies Allergies Allergy/AdvReac Type Severity Reaction Status Date / Time No Known Allergies [NKA] Allergy Unknown NONE Verified 06/19/24 20:43 Assessment & Plan Assessment & Plan (1) Schizoaffective disorder, depressive type: Status: Acute Code(s): F25.1 - Schizoaffective disorder, depressive type (2) Catatonia: Status: Acute Code(s): F06.1 - Catatonic disorder due to known physiological condition (3) Benign prostate hyperplasia: Qualifiers: Lower urinary tract symptom presence: unspecified whether lower urinary tract symptoms present Qualified Code(s): N40.0 - Benign prostatic hyperplasia without lower urinary tract symptoms Status: Acute Code(s): N40.0 - Benign prostatic hyperplasia without lower urinary tract symptoms Plan 59 year old male with history of hypertension, [id number] type 2 diabetes, schizoaffective disorder, and depression with catatonia admitted to Psychiatry with consult placed to hospitalist service for ECT evaluation. Catatonia Pt with previous well tolerated ECTs. NO history of seizures, chf, cad. No evidence of distress, lungs clear, Heart RRR, no edema. Unfortunately unable to ascertain history/ROS from patient, reviewed with nursing staff EKG reassuring without any dysrhythmia and QTC is reassuring RCRI score 0. At this time, there is no medical contraindication that should preclude patient from undergoing ECT based on available information Give 1L IV LR @500ml/hr given poor PO intake. Consider additional IVF if needed Had tolerated previously Thank you for allowing me to participate in this consult. Signing off at this time. Please do not hesitate to call for further questions or for any acute medical issues 06/26/24 Patient Pt medically cleared 06/25 was lethargic post ect but had lorazepam for catatonia given fluids had ? pneumonia on xray po2 ok on room air see hospitalist consu;t prophlatic antibiotics 06/27/2024 Continue clozapine ECT is possible will not give lorazepam post ECT patient had become quite sedated had tolerated previously Patient intermittently not voiding urine urology consult called we are monitoring 06/28/2024 Anesthesia does not recommend anesthesia and ECT at this time given recent aspiration pneumonia although patient has no fever he is maintaining O2. Periods of being alert he will eat some of his meals consider lorazepam 1 mg IV t.i.d. continue clozapine 06/29 Patient remained catatonic, overall not eating much though a little more than before. He does wave to instructional writer shahram but does not really answer questions. Discussed case with Dr. Doe who agrees to restart ativan 1mg tid (IV) 06/30 Remains catatonic, eating a little better however. Still not urinating and required straight catheterization x2 today. Patient doing some bizarre behaviors, grasping at things in the air that are not there. Will increase Ativan 1 mg IV to q.i.d. 07/01/24 Pt remains with catatonia with some improvement cloz level in er prior to adm almost 0 pt had not been taking his medication. ect consider ketamine as an alternative to ECT there are reports in the literature not a standard treatment but patient has generally not responded fully to lorazepam nor is he presently able to do ECT. It appears his relapse most likely was secondary to his stopping clozapine 07/02/2024 Continue Namenda ECT presently not an option patient pulse oxygen remains stable requires intermittent straight catheterization tamsulosin 0.8 Continue lorazepam 1 mg 4 times a day. Will increase clozapine 07/03/2024 Limit lorazepam continue Namenda continue clozapine consider Vraylar Check CBC electrolytes start infusion replacement electrolytes patient limited in what he can take in orally hospitalist service has been who following ECT not a current option 07/04/24 excited catatonia myoclous noted lower clozapine monitor response olanzapine for agaitation have been limiting lorazaepam sec to risk oversedation 07/06/24 last pm pulled out pic line, got olanzapine 5mg no effect, did calm down on 2mg ativan, discussed with dr doe and dc reviewed from 2011 Reason for continued inpatient stay Substantial Risk for: inability to function, rapid decompensation and med/psych decompensation Time Spent With Patient Time: Total time managing care of this patient today ____ minutes.
[2024-07-06] MEDS: OLANZapine ODT 10 MG TAB.RAPDIS 5 MG TRANSLINGU ×2 (10:12→21:07)
[2024-07-06] MEDS: LORazepam 1 MG TABLET 2 MG PO ×2 (10:49→17:37)
[2024-07-06] MEDS: cloZAPine 25 MG TABLET 150 MG PO (19:49)
[2024-07-06] MEDS: Sennosides/Docusate Sodium TABLET 1 TAB PO (19:50)
[2024-07-06] MEDS: Acetaminophen 325 MG TABLET 650 MG PO (19:51)
[2024-07-06] MEDS: Tamsulosin HCL 0.4 MG CAPSULE 0.8 MG PO (19:51)
[2024-07-06 21:44] VITALS: BP 128/80; PULSE 97; RESP 20; TEMP 36.7; O2SAT 98
[2024-07-07] MEDS: LORazepam 1 MG TABLET 2 MG PO ×2 (06:39→12:03)
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
[2024-07-07] MEDS: Nystatin Powder 15 GM BOTTLE 1 APPL TOPICAL ×2 (08:28→15:03)
[2024-07-07] MEDS: OLANZapine ODT 10 MG TAB.RAPDIS 5 MG TRANSLINGU ×2 (08:29→11:58)
[2024-07-07] MEDS: Finasteride 5 MG TABLET PO (08:29)
[2024-07-07] MEDS: LORazepam 1 MG TABLET PO ×2 (08:29→14:24)
[2024-07-07] MEDS: Acetaminophen 325 MG TABLET 650 MG PO ×2 (11:58→20:06)
[2024-07-07] MEDS: HaloperidoL 5 MG TABLET 10 MG PO (13:08)
[2024-07-07] MEDS: HaloperidoL 5 MG TABLET PO (14:24)
[2024-07-07] MEDS: OLANZapine 10 MG VIAL IM ×2 (14:35→20:12)
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
[2024-07-07 15:27] VITALS: BP 131/64; PULSE 89; RESP 18; TEMP 36.9
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
--- NOTE | 2024-07-07 15:57 | HO.BHRESTREX ---
Behavioral Restraint Exam Behavioral Health Restraint Exam Type of Restraint: Medication Reason for Restraint: Substantial Risk Medical Concerns for Restraint: No medical concerns, pt w/o acute inj / no noted resp/VS abnormalities
[2024-07-07] MEDS: Tamsulosin HCL 0.4 MG CAPSULE 0.8 MG PO (20:06)
[2024-07-07] MEDS: cloZAPine 100 MG TABLET 200 MG PO (20:06)
[2024-07-07] MEDS: Sennosides/Docusate Sodium TABLET 1 TAB PO (20:07)
[2024-07-07] MEDS: diazePAM 5 MG TABLET 10 MG PO (20:11)
[2024-07-07] MEDS: LORazepam 2 MG/ML VIAL IM (20:12)
[2024-07-07 21:07] LABS: MANUAL DIFF FLAG NO
[2024-07-07 21:09] LABS: Basophils Percent Auto 0.2 % (0-2); Hematocrit 38.5 % (42.0-52.0); Hemoglobin 12.6 g/dl (14.0-18.0); Imm Gran Abs Auto 0.04 X10*3/uL (0.00-0.03); Imm Gran Pct Auto 0.5 % (0.0-0.4); Lymphocytes Absolute Auto 2.1 X10*3/uL (1.2-4.9); Lymphocytes Percent Auto 25.5 % (20-40); Mean Corpuscular HGB Conc 32.7 g/dl (31.0-36.0); Mean Corpuscular Hemoglobin 28.4 pg (27.0-33.0); Mean Corpuscular Volume 86.9 fL (80.0-98.0); Mean Platelet Volume 12.5 fL (9.4-12.4); Monocytes Absolute Auto 0.6 X10*3/uL (0.1-1.2); Monocytes Percent Auto 6.8 % (2-11); Neutrophils Absolute Auto 5.6 x10*3/uL (2.0-8.3); Platelet Count 172 X10*3/uL (160-400); Red Blood Count 4.43 X10*6/uL (4.60-5.80); Red Cell Distribution Width 13.4 % (11.0-16.0); White Blood Count 8.4 X10*3/uL (4.8-10.8)
[2024-07-07 21:24] LABS: Alanine Aminotransferase 52 U/L (0-40); Albumin Level 3.8 g/dL (3.5-5.0); Alkaline Phosphatase 50 U/L (39-117); Anion Gap 14 (12-20); Aspartate Amino Transferase 48 U/L (5-37); Bilirubin Total 0.5 mg/dL (0.0-1.0); Blood Urea Nitrogen 21 mg/dL (9-16); Calcium 8.8 mg/dL (8.4-10.2); Carbon Dioxide 20 mmol/L (22-29); Chloride 109 mmol/L (96-108); Creatinine Clr Calc Pharmacy 65.4; Estimated Glomerular Filt Rate 56; Glucose Random 188 mg/dL (60-115); Potassium 4.2 mmol/L (3.3-5.1); Sodium 139 mmol/L (135-145); Total Protein 6.6 g/dL (6.5-8.0)
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
[2024-07-07] MEDS: Melatonin 3 MG TABLET 6 MG PO (22:33)
[2024-07-08] MEDS: Finasteride 5 MG TABLET PO (09:18)
[2024-07-08] MEDS: diazePAM 5 MG TABLET 10 MG PO (09:18)
[2024-07-08] MEDS: OLANZapine ODT 10 MG TAB.RAPDIS 5 MG TRANSLINGU ×3 (09:19→20:47)
--- NOTE | 2024-07-08 10:20 | MHC.SLORD ---
Speech Language Pathology Order Status: Pt has been agitated, is currently taking PO meds but not eating. MD notified that [facility] continues to follow, [facility] will assess when indicated (pt on NDD1 with thins).
[2024-07-08] MEDS: cloZAPine 25 MG TABLET PO (10:27)
[2024-07-08 11:14] VITALS: BP 132/65; PULSE 84; TEMP 37; O2SAT 98
--- NOTE | 2024-07-08 13:05 | MHC.CLN ---
F/U DIET=PUREE. ADDING ENSURE TID (1050 KCALS, 60 G PROTEIN) AND MAGIC CUP TID (870 KCALS, 27 G PROTEIN). SUPPLEMENT TO INCREASE NUTRITIONAL INTAKE. VARIABLE PO INTAKE, WITH VERY GOOD PO SOME MEALS. CONTINUE TO FOLLOW FOR PO INTAKE AND ENCOURAGE SUPPLEMENTS ABLE.
--- NOTE | 2024-07-08 16:11 | P.PNPSI_ITS ---
Subjective Subjective Date of Service: 07/01/24 Reason For Visit: Catatonia Subjective Notes: Conditional Voluntary Healthcare Proxy: Yes Interim History: Patient seen in psychiatric follow-up. Patient's has been confused agitated the past 2 3 days. Has not responded to Haldol lorazepam Valium p.o. 10 t.i.d.. The patient has had difficulty in a confusional state whether this is delirium or excited catatonia is difficult to differentiate. The patient required straight catheterization has had difficulty with urination. Taking in unclear amount of food and fluids afebrile vital signs stable Mental Status Exam Mental Status Exam Narrative: Patient seen lying sideways in bed babbling to himself some degree of echolalia difficulty following any direction some periods of irritability agitation pushing people away Diagnostics Vital Signs (24Hr): Vital Signs - 24 hr 07/08/24 11:14 Temperature 98.6 F Pulse Rate 84 Blood Pressure 132/65 Pulse Oximetry 98 Oxygen Delivery Method Room Air BMI result Body Mass Index 26.6 Labs 07/07/24 21:04 07/07/24 21:04 Labs: Laboratory Results - last 48 hr 07/07/24 21:04 WBC 8.4 RBC 4.43 L Hgb 12.6 L Hct 38.5 L MCV 86.9 MCH 28.4 MCHC 32.7 RDW 13.4 Plt Count 172 MPV 12.5 H Immature Gran % (Auto) 0.5 H Neut % (Auto) 67.0 Lymph % (Auto) 25.5 [place] % (Auto) 6.8 Eos % (Auto) 0.0 Baso % (Auto) 0.2 Lymph # (Auto) 2.1 [place] # (Auto) 0.6 Eos # (Auto) 0.0 Baso # (Auto) 0.0 Abs Immat Gran (auto) 0.04 H Absolute Neuts (auto) 5.6 Absolute Nucleated RBC 0.000 Nucleated RBC % (auto) 0.0 Sodium 139 Potassium 4.2 Chloride 109 H Carbon Dioxide 20 L Anion Gap 14 BUN 21 H Creatinine 1.30 Estim Creat Clear Calc 65.4 Estimated GFR 56 Random Glucose 188 H Calcium 8.8 Total Bilirubin 0.5 AST 48 H ALT 52 H Alkaline Phosphatase 50 Total Creatine Kinase 711 H Total Protein 6.6 Albumin 3.8 Imaging Radiology Impressions: ITS Impressions Chest X-Ray 06/26/24 13:05 IMPRESSION: Airspace opacity at the right lung base which may represent pneumonia. Follow-up is recommended. Electronically signed by: Jacob Hope MD 06/26/2024 01:50 PM EDT RP Chest X-Ray 07/03/24 09:10 IMPRESSION: Mild elevation of the right hemidiaphragm. The lungs are clear. Electronically signed by: Jacob Hope MD 07/03/2024 09:38 AM EDT RP KUB X-Ray 07/03/24 18:00 IMPRESSION: Large amount of stool throughout the colon. No evidence of bowel obstruction. Electronically signed by: Jacob Hope MD 07/04/2024 07:14 AM EDT RP Medications Medications Current Medications Acetaminophen (Acetaminophen 325 Mg Tablet) 650 mg PO Q6H PRN PRN Reason: Headache/Pain, Scale 1-10 Last Admin: 07/07/24 20:06 Dose: 650 mg Al Hydroxide/Mg Hydroxide (Magnesium Hydrox/Alum Hydrox 30 Ml Oral.Susp) 30 ml PO Q6H PRN PRN Reason: Heartburn/Nausea Albuterol/Ipratropium (Albuterol/Iprat 2.5/0.5mg 3 Ml Ampul.Neb) 3 ml INHALE TID PRN PRN Reason: Shortness of Breath/Wheezing Clozapine (Clozapine 100 Mg Tablet) 200 mg PO BEDTIME [facility] Last Admin: 07/07/24 20:06 Dose: 200 mg Clozapine (Clozapine 25 Mg Tablet) 25 mg PO DAILY [facility] Last Admin: 07/08/24 10:27 Dose: 25 mg Finasteride (Finasteride 5 Mg Tablet) 5 mg PO DAILY [facility] Last Admin: 07/08/24 09:18 Dose: 5 mg Lorazepam (Lorazepam 2 Mg/Ml Vial) 1 mg IVPUSH QID [facility] Last Admin: 07/03/24 09:34 Dose: Not Given Magnesium Hydroxide (Milk Of Magnesia 30 Ml Oral.Susp) 30 ml PO DAILY PRN PRN Reason: Constipation Last Admin: 07/05/24 14:42 Dose: 30 ml Melatonin (Melatonin 3 Mg Tablet) 6 mg PO BEDTIME [facility] Last Admin: 07/07/24 22:33 Dose: 6 mg Nystatin (Nystatin Powder 15 Gm Bottle) 1 appl TOPICAL TID KRISTIN; Protocol Last Admin: 07/08/24 12:53 Dose: Not Given Olanzapine (Olanzapine Odt 10 Mg Tab.Rapdis) 5 mg TRANSLINGU DAILY [facility] Last Admin: 07/08/24 09:19 Dose: 5 mg Olanzapine (Olanzapine Odt 10 Mg Tab.Rapdis) 5 mg TRANSLINGU TID PRN PRN Reason: psychotic agitation Last Admin: 07/08/24 10:28 Dose: 5 mg Senna/Docusate Sodium (Sennosides/Docusate Sodium Tablet) 1 tab PO BEDTIME [facility] Last Admin: 07/07/24 20:07 Dose: 1 tab Tamsulosin HCl (Tamsulosin Hcl 0.4 Mg Capsule) 0.8 mg PO BEDTIME [facility] Last Admin: 07/07/24 20:06 Dose: 0.8 mg Allergies Allergies Allergy/AdvReac Type Severity Reaction Status Date / Time No Known Allergies [NKA] Allergy Unknown NONE Verified 06/19/24 20:43 Assessment & Plan Assessment & Plan (1) Schizoaffective disorder, depressive type: Status: Acute Code(s): F25.1 - Schizoaffective disorder, depressive type (2) Catatonia: Status: Acute Code(s): F06.1 - Catatonic disorder due to known physiological condition (3) Benign prostate hyperplasia: Qualifiers: Lower urinary tract symptom presence: unspecified whether lower urinary tract symptoms present Qualified Code(s): N40.0 - Benign prostatic hyperplasia without lower urinary tract symptoms Status: Acute Code(s): N40.0 - Benign prostatic hyperplasia without lower urinary tract symptoms Plan 59 year old male with history of hypertension, [id number] type 2 diabetes, schizoaffective disorder, and depression with catatonia admitted to Psychiatry with consult placed to hospitalist service for ECT evaluation. Catatonia Pt with previous well tolerated ECTs. NO history of seizures, chf, cad. No evidence of distress, lungs clear, Heart RRR, no edema. Unfortunately unable to ascertain history/ROS from patient, reviewed with nursing staff EKG reassuring without any dysrhythmia and QTC is reassuring RCRI score 0. At this time, there is no medical contraindication that should preclude patient from undergoing ECT based on available information Give 1L IV LR @500ml/hr given poor PO intake. Consider additional IVF if needed Had tolerated previously Thank you for allowing me to participate in this consult. Signing off at this time. Please do not hesitate to call for further questions or for any acute medical issues 06/26/24 Patient Pt medically cleared 06/25 was lethargic post ect but had lorazepam for catatonia given fluids had ? pneumonia on xray po2 ok on room air see hospitalist consu;t prophlatic antibiotics 06/27/2024 Continue clozapine ECT is possible will not give lorazepam post ECT patient had become quite sedated had tolerated previously Patient intermittently not voiding urine urology consult called we are monitoring 06/28/2024 Anesthesia does not recommend anesthesia and ECT at this time given recent aspiration pneumonia although patient has no fever he is maintaining O2. Periods of being alert he will eat some of his meals consider lorazepam 1 mg IV t.i.d. continue clozapine 06/29 Patient remained catatonic, overall not eating much though a little more than before. He does wave to card writer hand shahram but does not really answer questions. Discussed case with Dr. Huerta who agrees to restart ativan 1mg tid (IV) 06/30 Remains catatonic, eating a little better however. Still not urinating and required straight catheterization x2 today. Patient doing some bizarre behaviors, grasping at things in the air that are not there. Will increase Ativan 1 mg IV to q.i.d. 07/01/24 Pt remains with catatonia with some improvement cloz level in er prior to adm almost 0 pt had not been taking his medication. ect consider ketamine as an alternative to ECT there are reports in the literature not a standard treatment but patient has generally not responded fully to lorazepam nor is he presently able to do ECT. It appears his relapse most likely was secondary to his stopping clozapine 07/02/2024 Continue Namenda ECT presently not an option patient pulse oxygen remains stable requires intermittent straight catheterization tamsulosin 0.8 Continue lorazepam 1 mg 4 times a day. Will increase clozapine 07/03/2024 Limit lorazepam continue Namenda continue clozapine consider Vraylar Check CBC electrolytes start infusion replacement electrolytes patient limited in what he can take in orally hospitalist service has been who following ECT not a current option 07/04/24 excited catatonia myoclous noted lower clozapine monitor response olanzapine for agaitation have been limiting lorazaepam sec to risk oversedation 07/05/2024 Excited catatonia periods of myoclonus restart lorazepam steroids held case reviewed with hospitalist service monitor for over-sedation clozapine lowered in case contributing factor patient afebrile. Case reviewed from a number of years ago when the patient had been in the hospital for about 4 months at that time did not respond to ECT and eventually was discharged on a combination of lithium sertraline clozapine and olanzapine 07/06- discussed with nursing and dr huerta- continue with plan after failed haldol this am and prns with olanzapine prn and im if need be, inc clozapine to 200mg - 07/08/2024 Clozapine increased to 25 in the morning 200 at bedtime Patient seemed to take a turn for the worse when clonidine clozapine was lowered also after treatment with steroids. Confused agitated discussion about the possibility of transferred to the ICU if needed patient afebrile vital signs stable needs straight cath p.r.n. continues to have bladder scan encourage food and fluids patient had pulled out IV and fully may need more sedation on medical floor intravenous fluids required will try and let the patient clear from benzodiazepines in case that is contributing to confusion Reason for continued inpatient stay Substantial Risk for: inability to function, rapid decompensation and med/psych decompensation Time Spent With Patient Time: Total time managing care of this patient today ____ minutes.
--- NOTE | 2024-07-08 18:17 | HO.PSYEVENT ---
Documented by User: Dahiana Haney NP 07/08/24 18:29 Event Note Date of Service: 07/08/24 Psych Restraint Event Note: received notification from FAITH Roberts informing of medical need to straight cath patient due to urinary retention. Pt currently presents as confused, unable to show capacity to make medical decisions. Pt held to complete straigh catherization. 17:40-17:50 Time Spent With Patient Time: Total time managing care of this patient today ____ minutes. Documented by User: Steven Huerta MD 07/08/24 22:03 Event Note Date of Service: 07/08/24
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
[2024-07-08] MEDS: Melatonin 3 MG TABLET 6 MG PO (20:46)
[2024-07-08] MEDS: cloZAPine 100 MG TABLET 200 MG PO (20:47)
[2024-07-08] MEDS: Tamsulosin HCL 0.4 MG CAPSULE 0.8 MG PO (20:47)
[2024-07-08] MEDS: Acetaminophen 325 MG TABLET 650 MG PO (20:47)
[2024-07-08] MEDS: Sennosides/Docusate Sodium TABLET 1 TAB PO (20:47)
[2024-07-09 10:00] VITALS: RESP 18
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
--- NOTE | 2024-07-09 10:25 | MHC.SLORD ---
Speech Language Pathology Order Status: SPINNING BATH PERSON attempted to see pt for f/u dysphagia tx. Per nursing, pt not appropriate at this time d/t behavior. Requested that RN Fordyce SPINNING BATH PERSON if pt becomes appropriate. Otherwise, SPINNING BATH PERSON to f/u tomorrow.
--- NOTE | 2024-07-09 14:13 | PC.NURSE ---
Patient transferred to the ICU at 13:38. Attempted to call pt's HCP Mr Buckner phone # [phone]. Nobody p/u the phone. Will try again. Patient's belongings delivered to the ICU by [facility].
--- NOTE | 2024-07-09 20:14 | PM.PSYDC ---
DS: Providers Provider Date of Service: 07/09/24 Date of admission: 06/20/24 16:33 Date of discharge: 07/09/24 Primary care physician: Unknown Physician Admitting clinician: Poncho Beauchamp Consults: 06/26/24 11:41 Consult to Hospitalist Stat Comment: spoke with dr owens Consulting Provider: [facility] Hospitalists Reason For Exam: dec o2 sat catatonia 06/27/24 15:08 Consult to Urology Routine Consulting Provider: [facility] Urology Services Reason for consultation: any rec for urinary retention needs clozaril Has provider been notified: No 07/03/24 08:20 Consult to Hospitalist Stat Comment: Consulting Provider: [facility] Hospitalists Reason For Exam: crackles in R lung, recent pneumonia, O2% 84-93 07/05/24 08:35 Consult to Hospitalist Routine Comment: Consulting Provider: [facility] Hospitalists Reason For Exam: has au on steroid?pneumonitis please follow ? T Attending physician on discharge: Steven Huerta DS: Diagnosis Discharge Diagnosis (1) Schizoaffective disorder, depressive type: Status: Acute (2) Catatonia: Status: Acute (3) Benign prostate hyperplasia: Status: Acute DS: Medications Discharge Medications Home Medications: Previous Rx's ?Medication ?Instructions ?Recorded clozapine 100 mg tablet 200 mg (2 x 100 mg) PO BEDTIME 30 05/21/24 days #60 tabs lorazepam 1 mg tablet 1 mg PO TID 30 days #90 tabs 05/21/24 tamsulosin 0.4 mg capsule 0.4 mg PO BEDTIME 30 days #30 caps 05/21/24 Mental Status Exam Mental Status Exam Narrative: Patient awake staring at the ceiling moving all limbs but non purposely unable to follows simple commands unable to evaluate cognitively. Some degree of echolalia Data Data Completed and Pending Completed studies during hospitalization [Text1]: 07/03/24 07/03/24 07/03/24 09:46 18:20 20:21 WBC 6.1 RBC 4.06 L Hgb 11.6 L Hct 34.8 L MCV 85.7 MCH 28.6 MCHC 33.3 RDW 13.6 Plt Count 143 L MPV 12.9 H Immature Gran % (Auto) 0.3 Neut % (Auto) 66.0 Lymph % (Auto) 24.9 Bertie % (Auto) 8.6 Eos % (Auto) 0.0 Baso % (Auto) 0.2 Lymph # (Auto) 1.5 Bertie # (Auto) 0.5 Eos # (Auto) 0.0 Baso # (Auto) 0.0 Abs Immat Gran (auto) Not Reportable Absolute Neuts (auto) 4.1 Absolute Nucleated RBC 0.000 Nucleated RBC % (auto) 0.0 Sodium 144 Potassium 4.7 Chloride 113 H Carbon Dioxide 20 L Anion Gap 16 BUN 26 H Creatinine 1.33 Estim Creat Clear Calc 64.0 Estimated GFR 55 Random Glucose 132 H Calcium 9.5 D Magnesium Total Bilirubin AST ALT Alkaline Phosphatase Total Creatine Kinase Troponin I High Sens 6.2 D 6.1 Total Protein Albumin 07/04/24 07/07/24 09:29 21:04 WBC 8.4 RBC 4.43 L Hgb 12.6 L Hct 38.5 L MCV 86.9 MCH 28.4 MCHC 32.7 RDW 13.4 Plt Count 172 MPV 12.5 H Immature Gran % (Auto) 0.5 H Neut % (Auto) 67.0 Lymph % (Auto) 25.5 Bertie % (Auto) 6.8 Eos % (Auto) 0.0 Baso % (Auto) 0.2 Lymph # (Auto) 2.1 Bertie # (Auto) 0.6 Eos # (Auto) 0.0 Baso # (Auto) 0.0 Abs Immat Gran (auto) 0.04 H Absolute Neuts (auto) 5.6 Absolute Nucleated RBC 0.000 Nucleated RBC % (auto) 0.0 Sodium 145 139 Potassium 4.0 4.2 Chloride 111 H 109 H Carbon Dioxide 25 20 L Anion Gap 13 14 BUN 23 H 21 H Creatinine 1.14 1.30 Estim Creat Clear Calc 74.6 65.4 Estimated GFR > 60 56 Random Glucose 94 188 H Calcium 9.0 8.8 Magnesium 2.1 Total Bilirubin 0.5 AST 48 H ALT 52 H Alkaline Phosphatase 50 Total Creatine Kinase 711 H Troponin I High Sens Total Protein 6.6 Albumin 3.8 07/08/24 Unknown Urine Catheterized - Straight Catheter Urine Culture - Preliminary No growth to date. Imaging Diagnostic Imaging Impressions Chest X-Ray 06/26/24 13:05 IMPRESSION: Airspace opacity at the right lung base which may represent pneumonia. Follow-up is recommended. Electronically signed by: Jacob Hope MD 06/26/2024 01:50 PM EDT RP Chest X-Ray 07/03/24 09:10 IMPRESSION: Mild elevation of the right hemidiaphragm. The lungs are clear. Electronically signed by: Jacob Hope MD 07/03/2024 09:38 AM EDT RP KUB X-Ray 07/03/24 18:00 IMPRESSION: Large amount of stool throughout the colon. No evidence of bowel obstruction. 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 The patient is very well known by this facility since he had been admitted at least 3 times in the last 6 months. Usually, he becomes catatonic and gets admitted into the hospital. Historically, he has improved dramatically with ECT and he had been having ECT as an outpatient. The patient is very well known by the team since he had several admissions to this unit with similar presentation due to catatonia. The last time that I saw the patient was last week when he attended to his regular ECT appointment. At that moment the patient was slightly hypoactive. Later on, the [facility] staff came to visit at home and he was found to be catatonic again. He was rushed to the emergency room assessed by the care team and transferring to this facility for psychiatric stabilization. On the intake interview the patient was able to recognize me and he was able to respond with yes no questions but most of the time he was nearly catatonic. He was even able to feed himself but he is not at his baseline. We called his father who is the healthcare proxy and he was signed in a conditional voluntary by healthcare proxy. Past Psychiatric History: Inpatient: multiple in the past. h/o ECT for catatonia. OP: [facility] Past medication trials: clozaril, ativan, sertraline, olanzapine. Medical Evaluation Reviewed: Yes [facility] Medical History Hospital discharge follow-up Mild sleep apnea Tardive dyskinesia Nocturnal hypoxia Routine medical exam Joint inflammation of right hand and wrist Status post fall Adult general medical exam Screening for colon cancer Screening for prostate cancer Cough BPH (benign prostatic hyperplasia) Surgical History History of colonoscopy (~06/15/21) History of tooth extraction History of root canal procedure Family History: unknown Social History: lives independently, works, drives. apartment in [place]. Trauma History: unknown Diagnostics Vital Signs (24Hr): Vital Signs - 24 hr 06/20/24 15:42 06/20/24 18:07 06/21/24 08:04 Temperature 98.2 F 97.9 F 98 F Pulse Rate 85 101 H 101 H Respiratory Rate 16 20 20 Blood Pressure 159/84 H 162/97 H 167/93 H Pulse Oximetry 95 95 94 Oxygen Delivery Method Room Air Room Air BMI result Body Mass Index 21.8 Labs 06/19/24 22:59 document embedded image 06/20/24 19:51 document embedded image Labs: Laboratory Results - last 48 hr 06/19/24 06/20/24 06/20/24 22:59 00:38 16:00 WBC 10.9 H RBC 4.55 L Hgb 13.0 L Hct 38.2 L MCV 84.0 MCH 28.6 MCHC 34.0 RDW 13.9 Plt Count 200 D MPV 10.1 Immature Gran % (Auto) 0.7 H Neut % (Auto) 69.6 Lymph % (Auto) 20.7 Bertie % (Auto) 8.8 Eos % (Auto) 0.0 Baso % (Auto) 0.2 Lymph # (Auto) 2.3 Bertie # (Auto) 1.0 Eos # (Auto) 0.0 Baso # (Auto) 0.0 Abs Immat Gran (auto) 0.08 H Absolute Neuts (auto) 7.6 Absolute Nucleated RBC 0.000 Nucleated RBC % (auto) 0.0 Sodium 140 Potassium 4.1 Chloride 108 Carbon Dioxide 23 Anion Gap 13 BUN 21 H Creatinine 1.28 Estim Creat Clear Calc 63.3 Estimated GFR 57 Random Glucose 91 Estimat Average Glucose Hemoglobin A1c % Calcium 9.2 Total Bilirubin 0.8 AST 17 ALT 12 Alkaline Phosphatase 50 Troponin I High Sens 3.9 Total Protein 7.1 Albumin 4.2 Triglycerides Cholesterol LDL Cholesterol, Calc HDL Cholesterol Urine Opiates Screen Not Detected Ur Buprenorphine Scrn Not Detected Ur Oxycodone Screen Not Detected Urine Methadone Screen Not Detected Urine Fentanyl Screen Not Detected Ur Barbiturates Screen Not Detected Ur Phencyclidine Scrn Not Detected Ur Amphetamines Screen Not Detected U Benzodiazepines Scrn POSITIVE H Urine Cocaine Screen Not Detected U Marijuana (THC) Screen Not Detected Ethyl Alcohol < 10 Influenza Type A (PCR) NEGATIVE Influenza Type B (PCR) NEGATIVE RSV RNA Qual (PCR) NEGATIVE SARS-CoV-2 RNA (RT-PCR) NEGATIVE 06/20/24 06/21/24 19:51 07:53 WBC RBC Hgb Hct MCV MCH MCHC RDW Plt Count MPV Immature Gran % (Auto) Neut % (Auto) Lymph % (Auto) Bertie % (Auto) Eos % (Auto) Baso % (Auto) Lymph # (Auto) Bertie # (Auto) Eos # (Auto) Baso # (Auto) Abs Immat Gran (auto) Absolute Neuts (auto) Absolute Nucleated RBC Nucleated RBC % (auto) Sodium 139 Potassium 4.5 Chloride 109 H Carbon Dioxide 19 L Anion Gap 16 BUN 28 H Creatinine 1.42 H Estim Creat Clear Calc 56.4 Estimated GFR 51 Random Glucose 131 H Estimat Average Glucose 111 Hemoglobin A1c % 5.5 Calcium 9.5 Total Bilirubin 0.8 AST 25 ALT 14 Alkaline Phosphatase 53 Troponin I High Sens Total Protein 7.4 Albumin 4.3 Triglycerides 64 Cholesterol 149 LDL Cholesterol, Calc 94 HDL Cholesterol 43 Urine Opiates Screen Ur Buprenorphine Scrn Ur Oxycodone Screen Urine Methadone Screen Urine Fentanyl Screen Ur Barbiturates Screen Ur Phencyclidine Scrn Ur Amphetamines Screen U Benzodiazepines Scrn Urine Cocaine Screen U Marijuana (THC) Screen Ethyl Alcohol Influenza Type A (PCR) Influenza Type B (PCR) RSV RNA Qual (PCR) SARS-CoV-2 RNA (RT-PCR) Meds/Allergies Allergies Allergies Allergy/AdvReac Type Severity Reaction Status Date / Time No Known Allergies [NKA] Allergy Unknown NONE Verified 06/19/24 20:43 Mental Status Exam Mental Status Exam Patient Appearance: Well Grooomed Patient Orientation: Person and Situation Level of Consciousness: Awake and Appropriate Patient Behavior: Guarded and Passive Mood Description: Withdrawn Affect Description: Blunted Patient Cognition Impaired: Yes Ability to Follow Directions: Fair Speech Pattern: Impoverished Hallucinations: None Delusions: Not Present Thought Process: Slowed Thinking Thought Content: positive for [place] and positive for Poverty of Content Judgement: Poor Assessment & Plan Assessment & Plan (1) Schizoaffective disorder: Status: Acute Code(s): F25.9 - Schizoaffective disorder, unspecified (2) Catatonia: Status: Acute Code(s): F06.1 - Catatonic disorder due to known physiological condition Plan The patient is a 59-year-old male with a past history of schizoaffective disorder and catatonia who was readmitted again for relapse on catatonic symptoms even though that he had been fully compliant with antipsychotics, benzodiazepines and ECT. The patient had been receiving outpatient ECT and apparently in the last days he had been more hypoactive. He was assessed by the care team and transferring to this facility for psychiatric stabilization. Plan 1. Gather more collateral information. 2. Invoke healthcare proxy since the patient at this moment is catatonic unable to sign CV. 3. Referral for ECT. 4. Hospitalist follow-up. 5. Continue with Clozaril and other medications. 6. 15 minute checks. Patient educated on: ECT and medical condition Reason for continued inpatient stay Substantial Risk for: inability to function, rapid decompensation and med/psych decompensation Statement Statement: I have reviewed the history and physical and performed a pertinent examination on my patient. No changes have occurred unless specified. If the History and Physical was not performed prior to admission, the Hospitalist's service will be consulted for completing the admission physical. Time Spent With Patient Time: Total time managing care of this patient today __45__ minutes. Dictated By: Poncho Beauchamp MD Signed By: <Electronically signed by Poncho Beauchamp MD> 06/21/24 1505 Hospital course See above for psychiatric admission note The patient was admitted in a catatonic state clozapine was continued. We had drawn a clozapine level in the emergency room as the patient had failed weekly maintenance ECT and it became clear that the patient had discontinued clozapine at some point as an outpatient The patient had been restarted on clozapine and he was treated with ECT as usually the patient did not respond to lorazepam. After the patient's last ECT on June 26 he did tend to desaturate although was unclear he was given antibiotics prophylactically he was afebrile no elevated white count and he was given a course of steroids for question possible pneumonitis. The patient became increasingly erratic and went from a more akinetic catatonia to a more excited catatonia/delirium. It also became clear that the patient had not been taking his clozapine for a few days and this may have also precipitated a withdrawal especially in the context of steroids. He had also been on Namenda off-label for catatonia Because the patient did not respond to oral treatment with lorazepam Valium became more confused agitated unable to take in food and fluids or oral medication and after consultation with the ICU attending he was transferred to the ICU for further stabilization. We are dealing with combination of catatonia withdrawal from clozapine inadequate intake of food and fluids nonresponse to benzodiazepines for catatonia Call was placed to patient's healthcare proxy his father Time Spent with Patient Time attestation: Total time managing care of this patient today ____ minutes. Discharge Plan Discharge Anticipated Discharge Date/Time: 07/09/24 12:34 Patient Disposition: er Acute Care Hospital Discharge Diagnosis: schizoaffective dx catatonia urinary retention intermittant ? recent pneumonitis florid confusion agitation not taking food fluids Referrals: Physician,Unknown J [Primary Care Provider] - 1 Week Discharge Medications: Continued clozapine 100 mg Tablet 200 mg PO BEDTIME 30 Days Qty: 60 0RF tamsulosin 0.4 mg Capsule 0.4 mg PO BEDTIME 30 Days Qty: 30 0RF lorazepam 1 mg Tablet 1 mg PO TID 30 Days Qty: 90 0RF Discontinued glycopyrrolate 1 mg Tablet 0.5 mg PO BID 30 Days Qty: 30 0RF Discharge Orders: Discharge Order (Routine); Ordered 07/09/24 Ordered By: Steven Huerta Activity on Discharge: icu bed Stand Alone Forms: Patient Portal Discharge page Print Language: Kiswahili Care Plan Goals: stabilize mood catatonia ensure medical health n utrition Health Concerns: catatonia excited urinary retension recent ? pneumonia pneumonitis inability to drink take meds eat Plan of Treatment: icu admission Assessment: confused lethargic catatonia periods of excitment Discharge Date/Time: 07/09/24 13:38
[2024-07-14 09:06] LABS: Neut%MD 76.3 %; Neutrophils Absolute Auto 6.6 x10*3/uL (2.0-8.3); WBCANC 8.6 X10*3/uL
== END 2024-07-09 13:38 | disposition short-term general hospital (02) | DRG 885 ==
LOC: HO.ED 06-20 07:29 → HO.PGERI 06-20 16:53
PROVIDERS: Physician Assistant; Psychiatry & Neurology Psychiatry; Admitting Provider Social Worker; Emergency Provider Emergency Medicine; Visit Provider Psychiatry & Neurology Psychiatry
PROC: GZB4ZZZ Other Electroconvulsive Therapy (ICD-10-PCS; CPT 90870; principal; 2024-06-26 08:00)
DX: F25.1 Schizoaffective disorder, depressive type (principal); J69.0 Pneumonitis due to inhalation of food and vomit; F06.1 Catatonic disorder due to known physiological condition; N40.1 Benign prostatic hyperplasia with lower urinary tract symptoms; R33.8 Other retention of urine; R32 Unspecified urinary incontinence; I10 Essential (primary) hypertension; E11.9 Type 2 diabetes mellitus without complications; Z20.822 Contact with and (suspected) exposure to COVID-19; Z79.899 Other long term (current) drug therapy
CPT/HCPCS: 0241U; 36410; 36415; 71045; 74018; 80048; 80053; 80061; 80159; 80307; 81001; 82550; 83036; 83735; 84484; 85025; 85048; 87086; 90870; 92526; 92610; 93005; 95816; 99285; C1894; J0330; J1642; J1650; J2060; J2359; J2405; J2543; J2919; J3360; J7120; S9485

== ENCOUNTER → 2024-06-20 04:55 | Outpatient (BNV) | payer MEDICARE, MEDICAID, SELFPAY | PROVIDERS: Emergency Provider Emergency Medicine; Visit Provider Internal Medicine Cardiovascular Disease | DX: R53.1 Weakness (principal) | CPT/HCPCS: 93010 ==

== ENCOUNTER 2024-06-20 16:33 | Outpatient (BNV) | payer MEDICARE, MEDICAID, SELFPAY | END 2024-06-26 13:05 | PROVIDERS: Admitting Provider Social Worker; Emergency Provider Emergency Medicine; Visit Provider Radiology Diagnostic Radiology | DX: R91.8 Other nonspecific abnormal finding of lung field (principal) | CPT/HCPCS: 71045 ==

== ENCOUNTER 2024-06-20 16:33 | Outpatient (BNV) | payer MEDICARE, MEDICAID, SELFPAY | END 2024-07-03 09:10 | PROVIDERS: Admitting Provider Social Worker; Emergency Provider Emergency Medicine; Visit Provider Radiology Diagnostic Radiology | DX: K59.00 Constipation, unspecified (principal) | CPT/HCPCS: 71045; 74018 ==

== ENCOUNTER → 2024-06-20 16:33 | Outpatient (BNV) | payer MEDICARE, MEDICAID, SELFPAY | PROVIDERS: Admitting Provider Social Worker; Emergency Provider Emergency Medicine; Visit Provider Psychiatry & Neurology Psychiatry | DX: F25.0 Schizoaffective disorder, bipolar type (principal); F06.1 Catatonic disorder due to known physiological condition | CPT/HCPCS: 99232 ==

== ENCOUNTER → 2024-06-20 16:33 | Outpatient (BNV) | payer MEDICARE, MEDICAID, SELFPAY | PROVIDERS: Admitting Provider Social Worker; Emergency Provider Emergency Medicine; Visit Provider Physician Assistant | DX: Z01.818 Encounter for other preprocedural examination (principal) | CPT/HCPCS: 99429; 99499 ==

== ENCOUNTER → 2024-06-20 16:33 | Outpatient (BNV) | payer MEDICARE, MEDICAID, SELFPAY | PROVIDERS: Admitting Provider Social Worker; Emergency Provider Emergency Medicine; Visit Provider Psychiatry & Neurology Psychiatry | DX: F25.0 Schizoaffective disorder, bipolar type (principal); F06.1 Catatonic disorder due to known physiological condition | CPT/HCPCS: 90792 ==

== ENCOUNTER 2024-07-09 14:18 | Outpatient (BNV) | payer MEDICARE, MEDICAID, SELFPAY | END 2024-07-17 04:07 | PROVIDERS: Admitting Provider Internal Medicine Critical Care Medicine; PCP Internal Medicine; Visit Provider Radiology Diagnostic Radiology | DX: Z43.1 Encounter for attention to gastrostomy (principal); Z99.11 Dependence on respirator [ventilator] status | CPT/HCPCS: 71045 ==

== ENCOUNTER 2024-07-09 14:18 | Outpatient (BNV) | payer MEDICARE, MEDICAID, SELFPAY | END 2024-07-19 12:13 | PROVIDERS: Admitting Provider Internal Medicine Critical Care Medicine; PCP Internal Medicine; Visit Provider Radiology Diagnostic Radiology | DX: Z43.1 Encounter for attention to gastrostomy (principal) | CPT/HCPCS: 71045 ==

== ENCOUNTER 2024-07-09 14:18 | Outpatient (BNV) | payer MEDICARE, MEDICAID, SELFPAY | END 2024-07-11 11:00 | PROVIDERS: Admitting Provider Internal Medicine Critical Care Medicine; Visit Provider Radiology Diagnostic Radiology | DX: Z46.59 Encounter for fitting and adjustment of other gastrointestinal appliance and device (principal) | CPT/HCPCS: 71045 ==

== ENCOUNTER 2024-07-09 14:18 | Outpatient (BNV) | payer MEDICARE, MEDICAID, SELFPAY | END 2024-07-16 22:39 | PROVIDERS: Admitting Provider Internal Medicine Critical Care Medicine; PCP Internal Medicine; Visit Provider Radiology Diagnostic Radiology | DX: Z46.6 Encounter for fitting and adjustment of urinary device (principal) | CPT/HCPCS: 71045 ==

== ENCOUNTER 2024-07-09 14:18 | Outpatient (BNV) | payer MEDICARE, MEDICAID, SELFPAY | END 2024-07-18 10:06 | PROVIDERS: Admitting Provider Internal Medicine Critical Care Medicine; PCP Internal Medicine; Visit Provider Radiology Vascular & Interventional Radiology | DX: J34.89 Other specified disorders of nose and nasal sinuses (principal) | CPT/HCPCS: 70551 ==

== ENCOUNTER 2024-07-09 14:18 | Inpatient (IN) | payer MEDICARE, MEDICAID, SELFPAY ==
[2024-07-09] VITALS (10 sets, daily range): BP systolic 112–143; BP diastolic 62–88; PULSE 94–104; RESP 20–22; TEMP 36.7; O2SAT 91–95; BMI 28.4
--- NOTE | ~2024-07-09 | XR_ITS ---
EXAMINATION: XR CHEST 1 VIEW HISTORY: aspiration COMPARISON: Comparison is made with the prior examination dated 07/10/2024. FINDINGS: A single AP portable view of the chest performed at 11:03 AM is submitted. Again seen is a nasogastric tube with its tip below the diaphragm. There is scarring at the left lung base. The lungs are otherwise clear. There is no pleural effusion, pneumothorax, or pulmonary vascular congestion. The heart is normal in size. There is degenerative disc disease of the spine. XR/XR chest 1V IMPRESSION: Nasogastric tube unchanged in position. No acute cardiopulmonary abnormality. Electronically signed by: Jacob Hope MD 07/11/2024 11:27 AM EDT
--- NOTE | ~2024-07-09 | XR_ITS ---
CLINICAL HISTORY: ng tube placement 1 view chest x-ray Comparison: CR/SR - XR CHEST 1V - 07/11/24 11:03 EDT Findings: The lungs are clear. Incomplete visualization of the lung apices. Normal size heart. No acute fracture. There is gaseous distention of bowel within the visualized abdomen. IMPRESSION: The nasogastric tube is within the proximal stomach. This document has been electronically signed by: Jackie Grant MD on 07/11/2024 18:06:24
--- NOTE | ~2024-07-09 | XR_ITS ---
CLINICAL HISTORY: NGT placement confirmation --- Additional Notes or Special Instructions: will call when ready 1 view chest x-ray Comparison: CR/SR - XR CHEST 1V - 07/03/24 09:09 EDT Findings: Sequential chest x-rays during advancement of the nasogastric tube. On the final image from 6:09 PM, nasogastric tube tip projects over the distal stomach. The lungs are clear. Heart size is normal. No acute fracture. IMPRESSION: Nasogastric tube tip terminates in the distal stomach. This document has been electronically signed by: Oleg Arenas MD on 07/10/2024 19:39:25
--- NOTE | ~2024-07-09 | XR_ITS ---
CLINICAL HISTORY: NGT placement 1 view chest x-ray Comparison: 07/11/2024 Findings: NG tube tip coiled in proximal stomach. Lungs are clear without acute infiltrates. No pneumothorax. Heart size normal. No acute bony abnormalities. Impression: No acute processes This document has been electronically signed by: Enoc Murillo MD on 07/16/2024 23:21:02
--- NOTE | ~2024-07-09 | XR_ITS ---
CLINICAL HISTORY: Intubated, OGT 1 view chest x-ray. Comparison: CR - XR CHEST 1V - 07/16/24 22:41 EDT CR - XR CHEST 1V - 07/11/24 17:18 EDT Findings: Normal lung volumes. Eventration right hemidiaphragm Lungs are clear. No pneumothorax or pleural effusion. Heart size normal. No passive venous congestion. No midline shift or tracheal deviation. No acute fracture. ET tube 8 cm above caroline. Enteric tube well within the stomach. Impression: 1. No acute cardiopulmonary disease. ET tube 8 cm above the caroline. Enteric tube well within the stomach. This document has been electronically signed by: Darrell Heart MD on 07/17/2024 05:13:42
--- NOTE | ~2024-07-09 | MR_ITS ---
CLINICAL HISTORY: Persistent encephalopathy MR Brain without gadolinium Comparison: None Findings: No restricted diffusion. No intra-axial mass or hemorrhage. No midline shift. No hydrocephalus. Vascular flow voids are intact. Scattered T2 signal prolongation in the periventricular white matter. The orbits are normal. There is opacification of the left aspect of the sphenoid sinus, otherwise the sinuses and mastoid air cells are clear. No focal bone lesion. IMPRESSION: No acute findings. Mild white matter disease. Sphenoid sinus disease. This document has been electronically signed by: Apolinar Kinney MD on 07/18/2024 21:56:53
--- NOTE | ~2024-07-09 | XR_ITS ---
EXAMINATION: XR CHEST CLINICAL INFORMATION: NGT Replacement COMPARISON: None available. TECHNIQUE: Frontal view of the chest was obtained. FINDINGS: NG tube now appears well positioned. No additional lines or tubes. Cardiac, hilar, and mediastinal contours are normal. Minimal linear atelectasis left base. No effusion or pneumothorax. Mildly gas-distended loops of bowel in the abdomen. XR/XR chest 1V IMPRESSION: Well-positioned NG tube. No active pulmonary disease. Electronically signed by: Reinaldo Montes MD 07/19/2024 01:02 PM EDT RP
--- NOTE | ~2024-07-09 | XR_ITS ---
CLINICAL HISTORY: ng tube 1 view chest x-ray Comparison: CR/IA/SR - XR CHEST 1V - 07/24/24 08:13 EDT Findings: No consolidation or effusion. Esophagogastric tube tip extends below the diaphragm. Normal size heart. No acute fracture. IMPRESSION: No acute cardiopulmonary abnormality. This document has been electronically signed by: Vivian Mabry on 07/26/2024 06:38:38
--- NOTE | ~2024-07-09 | XR_ITS ---
EXAMINATION: XR CHEST CLINICAL INFORMATION: NGT placement; patient with persistent encephalopathy. COMPARISON: 07/19/2024. TECHNIQUE: Frontal view of the chest was obtained. FINDINGS: NG tube appears well situated, tip likely within the proximal duodenum. Sidehole appears to be within the gastric antrum. The cardiac, hilar, and mediastinal contours are normal. The lungs are clear bilaterally. Minimal linear atelectasis left base, unchanged. No pneumothorax or effusion. Mildly gas distended loops of bowel, predominantly colon, in the upper abdomen, similar. XR/XR chest 1V IMPRESSION: 1. NG tube positioned as detailed. Tip is likely within the proximal duodenum. Sidehole is likely within the antrum. 2. Lungs remain clear with minimal left base atelectasis. No pneumothorax. 3. Mildly gas distended loops of predominantly colon in the upper abdomen. Electronically signed by: Reinaldo Montes MD 07/24/2024 08:56 AM EDT
--- NOTE | ~2024-07-09 | XR_ITS ---
CLINICAL HISTORY: R O FOREIGN BODY IN SKULL, PRE MRI MRI Screening XR PRE MRI SCREENING Comparison: None Findings: Bones are intact. Paranasal sinuses and mastoids are clear. No metallic foreign body. IMPRESSION: 1. No metallic foreign bodies in the orbits. This document has been electronically signed by: Yuridia Wallace MD on 07/17/2024 17:41:16
--- NOTE | ~2024-07-09 | XR_ITS ---
EXAMINATION: XR CHEST CLINICAL INFORMATION: NGT Placement COMPARISON: Chest x-ray 07/17/2024. TECHNIQUE: Frontal view of the chest was obtained. FINDINGS: NG tube is positioned with the tip below the diaphragm in the stomach, however the sidehole is above the diaphragm. This should be advanced approximately 6 cm for optimal placement. Lung apices is been excluded from the film. There is linear atelectasis left base. Cardiac and mediastinal contours appear normal. There are mildly gaseous distended loops of bowel in the abdomen. XR/XR chest 1V IMPRESSION: NG tube with sidehole above the diaphragm. This device should be advanced 6 cm for optimal placement. Electronically signed by: Reinaldo Montes MD 07/19/2024 01:00 PM EDT
[2024-07-09] MEDS: Enoxaparin Sodium 40 MG/0.4 ML SYRINGE SUBCUT (15:06)
[2024-07-09] MEDS: OLANZapine 10 MG VIAL IM (15:06)
[2024-07-09] MEDS: Famotidine/PF 20 MG/2 ML VIAL IVPUSH ×2 (15:06→20:52)
[2024-07-09] MEDS: Pantoprazole Sodium 40 MG/10 ML VIAL IVPUSH (15:06)
[2024-07-09 15:09] LABS: MANUAL DIFF FLAG NO
[2024-07-09 15:10] LABS: Basophils Percent Auto 0.1 % (0-2); Hemoglobin 13.6 g/dl (14.0-18.0); Imm Gran Abs Auto 0.04 X10*3/uL (0.00-0.03); Imm Gran Pct Auto 0.4 % (0.0-0.4); Lymphocytes Absolute Auto 1.4 X10*3/uL (1.2-4.9); Mean Corpuscular Hemoglobin 28.6 pg (27.0-33.0); Mean Platelet Volume 11.8 fL (9.4-12.4); Monocytes Absolute Auto 0.8 X10*3/uL (0.1-1.2); Monocytes Percent Auto 8.3 % (2-11); Neutrophils Absolute Auto 7.8 x10*3/uL (2.0-8.3); Neutrophils Percent Auto 77.2 % (45-73); Platelet Count 219 X10*3/uL (160-400); Red Blood Count 4.76 X10*6/uL (4.60-5.80); Red Cell Distribution Width 13.7 % (11.0-16.0); White Blood Count 10.1 X10*3/uL (4.8-10.8)
[2024-07-09 15:22] LABS: Glucose, Whole Blood 113 mg/dL (60-115)
[2024-07-09 15:37] LABS: Alanine Aminotransferase 50 U/L (0-40); Alanine Aminotransferase 51 U/L (0-40); Albumin Level 3.9 g/dL (3.5-5.0); Anion Gap 15 (12-20); Anion Gap 16 (12-20); Aspartate Amino Transferase 59 U/L (5-37); Aspartate Amino Transferase 61 U/L (5-37); Bilirubin Total 0.9 mg/dL (0.0-1.0); Blood Urea Nitrogen 18 mg/dL (9-16); Blood Urea Nitrogen 19 mg/dL (9-16); Calcium 9.4 mg/dL (8.4-10.2); Calcium 9.5 mg/dL (8.4-10.2); Carbon Dioxide 21 mmol/L (22-29); Carbon Dioxide 23 mmol/L (22-29); Chloride 107 mmol/L (96-108); Chloride 108 mmol/L (96-108); Estimated Glomerular Filt Rate 55; Estimated Glomerular Filt Rate 57; Glucose Random 96 mg/dL (60-115); Glucose Random 97 mg/dL (60-115); Potassium 4.4 mmol/L (3.3-5.1); Sodium 141 mmol/L (135-145); Total Protein 6.9 g/dL (6.5-8.0)
--- NOTE | 2024-07-09 16:43 | P.HPCC_ITS ---
History of Present Illness Date of Service: 07/09/24 Chief Complaint: catatonia 59-year-old male, single, with no children, with a past history of schizoaffective disorder, living alone with several ancillary services in the community, his father is Healthcare proxy he was admitted to the psych unit on 06/21/2024 due to worsening peritoneal. He received his scheduled ECT following which is saturations dropped, there was some concerns for pneumonitis for which he received steroids following which his mentation further continued to worsen. Currently he is very a catatonic, not following commands, moving around in the bed so MICU was consulted for admission. Review of Systems 2 Review of Systems: Unable to obtain as patient is confused PMFSH Past Medical History Medical History Hospital discharge follow-up Mild sleep apnea Tardive dyskinesia Nocturnal hypoxia Routine medical exam Joint inflammation of right hand and wrist Status post fall Adult general medical exam Screening for colon cancer Screening for prostate cancer Cough BPH (benign prostatic hyperplasia) Family History Family History Mother Cancer Father Kidney agenesis Surgical History Surgical History History of colonoscopy (~06/15/21) History of tooth extraction History of root canal procedure Social History Social History Household Members: Unknown / Unable to assess Housing: Apartment Are you a primary critical care physician to a significant other at home: No Do you presently have visiting nurse or other home services: Yes Unable to assess alcohol history related to: Unable to respond Alcohol intake: former Comment: 1:1 Patient Tobacco Use Status: Never used Tobacco e-Cigarette/Vaping Use: Never Used Second Hand Smoke Exposure: No Use of substances other than those prescribed or required for medical reasons: Unable to respond Advance Directives: No Advance Directives Information Provided: No Recently lost weight without trying: Unsure service: No Current occupational status: employed Sexual orientation: Straight/Heterosexual Cognitive needs: No Hearing needs: No Vision needs: No Meds Allergies Allergy/AdvReac Type Severity Reaction Status Date / Time No Known Allergies [NKA] Allergy Unknown NONE Verified 06/19/24 20:43 Active Medications: Current Medications Enoxaparin Sodium (Enoxaparin Sodium 40 Mg/0.4 Ml Syringe) 40 mg SUBCUT Q24H [facility] Last Admin: 07/09/24 15:06 Dose: 40 mg Famotidine (Famotidine/Pf 20 Mg/2 Ml Vial) 20 mg IVPUSH BID [facility] Last Admin: 07/09/24 15:06 Dose: 20 mg Olanzapine (Olanzapine 10 Mg Vial) 10 mg IM DAILY PRN PRN Reason: agitation Last Admin: 07/09/24 15:06 Dose: 10 mg Pantoprazole Sodium (Pantoprazole Sodium 40 Mg/10 Ml Vial) 40 mg IVPUSH DAILY@0630 [facility] Last Admin: 07/09/24 15:06 Dose: 40 mg Physical Exam 2 Vital Signs: Vital Signs: Last Vital Signs Temp 98.1 F 07/09/24 16:00 Pulse 97 07/09/24 16:00 BP 122/79 07/09/24 16:00 Pulse Ox 93 07/09/24 16:00 O2 Del Method Room Air 07/09/24 16:00 Oxygen Flow Rate 1 07/09/24 13:21 BMI result Body Mass Index 28.4 General: not inacute distress, my care, significantly confused, moving in the bed, lying on 1 side Nutritional Appearance: well nourished and overweight Eyes: appearance normal, both eyes and all related structures; Alignment and Position: alignment normal and position normal Neck: No lymphadenopathy, no thyromegaly Resp: bilateral air entry equal, occasional added sounds present Cardio: Regular rate, regular rhythm; Heart sounds: S1 normal heart sound present and S2 normal heart sound present GI: soft, nontender, no guarding, no hepatosplenomegaly : bladder normal to inspection, bladder normal to palpation, no renal angle tenderness Skin: no rashes or lesions noted and elasticity normal Neuro: does not follow any commands, very confused, no focal deficits Results Labs 07/09/24 15:04 07/09/24 15:04 Labs: Laboratory Results - last 24 hr 07/09/24 07/09/24 07/09/24 15:04 15:04 15:04 MCV Cancelled 84.0 MCH Cancelled 28.6 MCHC Cancelled RDW Plt Count MPV Immature Gran % (Auto) Neut % (Auto) Lymph % (Auto) [facility] % (Auto) Eos % (Auto) Baso % (Auto) Lymph # (Auto) [facility] # (Auto) Eos # (Auto) Baso # (Auto) Abs Immat Gran (auto) Absolute Neuts (auto) Absolute Nucleated RBC Nucleated RBC % (auto) Anion Gap Estim Creat Clear Calc Estimated GFR POC Glucose Random Glucose Calcium Total Bilirubin AST ALT Total Protein Albumin 07/09/24 07/09/24 07/09/24 15:04 15:04 15:04 MCV MCH MCHC 34.0 RDW Cancelled 13.7 Plt Count Cancelled 219 D MPV Cancelled Immature Gran % (Auto) Neut % (Auto) Lymph % (Auto) [facility] % (Auto) Eos % (Auto) Baso % (Auto) Lymph # (Auto) [facility] # (Auto) Eos # (Auto) Baso # (Auto) Abs Immat Gran (auto) Absolute Neuts (auto) Absolute Nucleated RBC Nucleated RBC % (auto) Anion Gap Estim Creat Clear Calc Estimated GFR POC Glucose Random Glucose Calcium Total Bilirubin AST ALT Total Protein Albumin 07/09/24 07/09/24 07/09/24 15:04 15:04 15:04 MCV MCH MCHC RDW Plt Count MPV 11.8 Immature Gran % (Auto) Cancelled 0.4 Neut % (Auto) Cancelled 77.2 H Lymph % (Auto) Cancelled [facility] % (Auto) Eos % (Auto) Baso % (Auto) Lymph # (Auto) [facility] # (Auto) Eos # (Auto) Baso # (Auto) Abs Immat Gran (auto) Absolute Neuts (auto) Absolute Nucleated RBC Nucleated RBC % (auto) Anion Gap Estim Creat Clear Calc Estimated GFR POC Glucose Random Glucose Calcium Total Bilirubin AST ALT Total Protein Albumin 07/09/24 07/09/24 07/09/24 15:04 15:04 15:04 MCV MCH MCHC RDW Plt Count MPV Immature Gran % (Auto) Neut % (Auto) Lymph % (Auto) 14.0 L [facility] % (Auto) Cancelled 8.3 Eos % (Auto) Cancelled 0.0 Baso % (Auto) Cancelled Lymph # (Auto) [facility] # (Auto) Eos # (Auto) Baso # (Auto) Abs Immat Gran (auto) Absolute Neuts (auto) Absolute Nucleated RBC Nucleated RBC % (auto) Anion Gap Estim Creat Clear Calc Estimated GFR POC Glucose Random Glucose Calcium Total Bilirubin AST ALT Total Protein Albumin 07/09/24 07/09/24 07/09/24 15:04 15:04 15:04 MCV MCH MCHC RDW Plt Count MPV Immature Gran % (Auto) Neut % (Auto) Lymph % (Auto) [facility] % (Auto) Eos % (Auto) Baso % (Auto) 0.1 Lymph # (Auto) Cancelled 1.4 [facility] # (Auto) Cancelled 0.8 Eos # (Auto) Cancelled Baso # (Auto) Abs Immat Gran (auto) Absolute Neuts (auto) Absolute Nucleated RBC Nucleated RBC % (auto) Anion Gap Estim Creat Clear Calc Estimated GFR POC Glucose Random Glucose Calcium Total Bilirubin AST ALT Total Protein Albumin 07/09/24 07/09/24 07/09/24 15:04 15:04 15:04 MCV MCH MCHC RDW Plt Count MPV Immature Gran % (Auto) Neut % (Auto) Lymph % (Auto) [facility] % (Auto) Eos % (Auto) Baso % (Auto) Lymph # (Auto) [facility] # (Auto) Eos # (Auto) 0.0 Baso # (Auto) Cancelled 0.0 Abs Immat Gran (auto) Cancelled 0.04 H Absolute Neuts (auto) Cancelled Absolute Nucleated RBC Nucleated RBC % (auto) Anion Gap Estim Creat Clear Calc Estimated GFR POC Glucose Random Glucose Calcium Total Bilirubin AST ALT Total Protein Albumin 07/09/24 07/09/24 07/09/24 15:04 15:04 15:04 MCV MCH MCHC RDW Plt Count MPV Immature Gran % (Auto) Neut % (Auto) Lymph % (Auto) [facility] % (Auto) Eos % (Auto) Baso % (Auto) Lymph # (Auto) [facility] # (Auto) Eos # (Auto) Baso # (Auto) Abs Immat Gran (auto) Absolute Neuts (auto) 7.8 Absolute Nucleated RBC Cancelled 0.000 Nucleated RBC % (auto) Cancelled 0.0 Anion Gap 16 Estim Creat Clear Calc Estimated GFR POC Glucose Random Glucose Calcium Total Bilirubin AST ALT Total Protein Albumin 07/09/24 07/09/24 07/09/24 15:04 15:04 15:04 MCV MCH MCHC RDW Plt Count MPV Immature Gran % (Auto) Neut % (Auto) Lymph % (Auto) [facility] % (Auto) Eos % (Auto) Baso % (Auto) Lymph # (Auto) [facility] # (Auto) Eos # (Auto) Baso # (Auto) Abs Immat Gran (auto) Absolute Neuts (auto) Absolute Nucleated RBC Nucleated RBC % (auto) Anion Gap 15 Estim Creat Clear Calc TNP TNP Estimated GFR 57 55 POC Glucose Random Glucose 97 Calcium Total Bilirubin AST ALT Total Protein Albumin 07/09/24 07/09/24 07/09/24 15:04 15:04 15:04 MCV MCH MCHC RDW Plt Count MPV Immature Gran % (Auto) Neut % (Auto) Lymph % (Auto) [facility] % (Auto) Eos % (Auto) Baso % (Auto) Lymph # (Auto) [facility] # (Auto) Eos # (Auto) Baso # (Auto) Abs Immat Gran (auto) Absolute Neuts (auto) Absolute Nucleated RBC Nucleated RBC % (auto) Anion Gap Estim Creat Clear Calc Estimated GFR POC Glucose Random Glucose 96 Calcium 9.4 D 9.5 Total Bilirubin 0.9 0.9 AST 59 H ALT Total Protein Albumin 07/09/24 07/09/24 07/09/24 15:04 15:04 15:04 MCV MCH MCHC RDW Plt Count MPV Immature Gran % (Auto) Neut % (Auto) Lymph % (Auto) [facility] % (Auto) Eos % (Auto) Baso % (Auto) Lymph # (Auto) [facility] # (Auto) Eos # (Auto) Baso # (Auto) Abs Immat Gran (auto) Absolute Neuts (auto) Absolute Nucleated RBC Nucleated RBC % (auto) Anion Gap Estim Creat Clear Calc Estimated GFR POC Glucose Random Glucose Calcium Total Bilirubin AST 61 H ALT 50 H 51 H Total Protein 6.9 7.0 Albumin 3.9 07/09/24 07/09/24 15:04 15:18 MCV MCH MCHC RDW Plt Count MPV Immature Gran % (Auto) Neut % (Auto) Lymph % (Auto) [facility] % (Auto) Eos % (Auto) Baso % (Auto) Lymph # (Auto) [facility] # (Auto) Eos # (Auto) Baso # (Auto) Abs Immat Gran (auto) Absolute Neuts (auto) Absolute Nucleated RBC Nucleated RBC % (auto) Anion Gap Estim Creat Clear Calc Estimated GFR POC Glucose 113 Random Glucose Calcium Total Bilirubin AST ALT Total Protein Albumin 4.0 Assessment and Plan (1) Schizoaffective disorder, depressive type: Status: Acute (2) Schizoaffective disorder: Status: Acute (3) Catatonia: Status: Acute (4) Essential hypertension: Status: Acute (5) Mild sleep apnea: Status: Acute (6) Nocturnal hypoxia: Status: Acute Plan catatonia: received ECT before following which is saturations slightly dropped, treated with steroids for aspiration pneumonitis with which his mental status significantly worsened. He received 10 mg of IM Zyprexa in the unit, his agitation has decreased significantly. we will defer rest of the psych management to psychiatrist we will closely monitor his respiratory status
[2024-07-09 17:59] LABS: Alkaline Phosphatase 49 U/L (39-117)
--- OUTSIDE RECORDS SUMMARY | 2024-07-09 18:01 | XMS_ITS | Patient Health Record ---
Author Organization [facility] Behzad Mckeon Address [address] [place] [address] Care Team Providers Care Vending Machine Attendant Name Role Phone SarahJonn Primary Care Provider Deanna Baron Unavailable [phone] Main Nino Unavailable [phone] Allergies No Known Allergies Reason For Referral [...] as needed Orally Once a day Active [place] Carbonate 600 MG 1 capsule at be [...] Polyneuropathy due to type 2 diabetes mellitus (260332253) Type 2 diabetes mellitus with diabetic polyneuropathy (E11.42) Active confirmed Vital Signs Blood pressure diastolic 80 mm Hg 12/26/2023 Height 5ft 10in in 12/26/2023 Blood pressure systolic 120 mm Hg 12/26/2023 Weight 227 lbs 12/26/2023 BMI 32.57 kg/m2 12/26/2023 Procedures Procedure Date Ordered Date Performed Result Body Sit e 67907-NDPUBXV NAIL, 6 OR MORE 12/26/2023 N/A Encounters Encounter Location Date Provider Diagnosis [facility] [address] 12/26/2023 Deanna Baron Tinea unguium B35.1 and Type 2 diabetes mellitus with diabetic polyneuropathy E11.42 [facility] [address] 09/06/[address] [address] 03/28/2024 Deanna Baron Assessments Encounter Date Diagnosis (ICD Code) Assessment Notes Treatment Notes Treatment Clinical Notes Section Notes 12/26/2023 Tinea unguium (ICD-10 - B35.1) 12/26/2023 Type 2 diabetes mellitus with diabetic polyneuropathy (ICD-10 - E11.42) Plan Of Treatment Pending Test Test Name Order Date X ray : Foot, right 3V 10/17/2018 02301-GEQJAMV NAIL, 6 OR MORE 12/26/2023 56204-CYDH SKIN LESIONS, OVER 4 04/07/19 22 25341-OBDG SKIN LESIONS, OVER 4 01/31/20 19 56047-CWZA SKIN LESIONS, OVER 4 06/05/19 20 73991-KVDC SKIN LESIONS, OVER 4 07/31/19 19 31266-HMJP SKIN LESIONS, OVER 4 10/18/19 19 26907-WBJF SKIN LESIONS, OVER 4 09/18/19 20 56251-DIVV SKIN LESIONS, OVER 4 12/16/19 20 79777-JJLF SKIN LESIONS, OVER 4 04/08/19 43220-RVRE SKIN LESIONS, OVER 4 08/06/19 05248-BBYF SKIN LESIONS, OVER 4 12/17/19 21 P6730-DAKSUYCE DYSTROPHIC NAILS ANY # X8545-UBAVQDMH DYSTROPHIC NAILS ANY # Q9966-ICOLDXDO DYSTROPHIC NAILS ANY # H6344-BPXCOLXA DYSTROPHIC NAILS ANY # K6840-UBNPSAWI DYSTROPHIC NAILS ANY # C0858-ZCYTSMGG DYSTROPHIC NAILS ANY # G1560-CTNVGSGO DYSTROPHIC NAILS ANY # Insurance Providers Payer Name Payer Address Payer Phone Subscriber Number Group Number Insured Name Patient Relationship to Insured Coverage Start Date Coverage End Date [employer] Medicare Open [address] [place] [address] [id number] Benjamin Tenorio Self - patient is the insured Medical (General) History Medical History History ICD Code Depression type II diabetes Surgical History Surgery Date(Month/Year) colonoscopy 06/19/21 Hospitalization History Reason Date(Month/Year) ZPM-Tdjxkcnjff-QQ visit 12/2018
--- OUTSIDE RECORDS SUMMARY | 2024-07-09 18:01 | XMS_ITS ---
Author Organization [facility] Address [address] [place] [address] Care Team Providers Care Inspector Eyeglass Frames Name Role Phone Jonn Smith Primary Care Provider [phone] Deanna Baron [phone] REASON FOR VISIT No Show Encounters Encounter Location Date Provider Diagnosis [facility] [address] [place] [address] 03/28/2024 Deanna Baron Plan Of Treatment No Information Progress Notes * ANTONIOBill Restrepoer PDOB:1965 (58 yo M)Acc No.[id number]:03/28/2024 Patient:?Benjamin ALVAREZ Gill :1965???Age:58 Y???Sex:Male Address:[address] [place] [address] t , [place], [address] * true * Date:? Generated for Printi ng/Faliseg/eTransmitting on:?07/09/2024 06:01 PM EDT
--- OUTSIDE RECORDS SUMMARY | 2024-07-09 18:01 | XMS_ITS ---
Author Organization [facility] Address [address] [place] [address] Care Team Providers Care Snuff Packing Machine Operator Name Role Phone Jonn Smith Primary Care Provider Deanna Baron [phone] Medications Medication SIG (Take, Route, Frequency, Duration) [...] as needed Orally Once a day Active [place] Carbonate 600 MG 1 capsule at be dtime Orally Once a day for 30 day(s) Active clonazePAM Active Custom Orthotics as directed A ctive Abilify Active Physical Therapy . . . 2-3x/week for 3- 4 weeks Active Night Splint AFO - L1930 as directed Active Tamsulosin HCl Activ e Zoloft 100 mg Oral Active Encounters Encounter Location Date Provider Diagnosis [facility] [address] [place] [address] 03/28/2024 Deanna Baron Plan Of Treatment No Information Progress Notes * ANTONIOBill Restrepoer PDOB:1965 (59 yo M)Acc No.[id number]:03/28/2024 Progress Note Patient:?Benjamin ALVAREZ Provider:?Deanna Baron DPM :1965???Age:58 Y???Sex:Male Wilver e:03/28/2024 Address:[address] [place] [address], [facility] Pcp:Jonn Smith Subjective: * Chief Complaints: * ??? * Medical History:? * Medications:?Taking Abilify , Taking clonazePAM , Taking Ciclopirox Olamine 0.77 % Cream 1 application to affected area Externally Twice a day to effected areas on feet , Taking Flomax , Taking [place] Carbonate 600 MG Capsule 1 capsule at [...] DPM Date:?0 03/28/2024 Generated for Senia velásquez/Mary/Marcelo on:?07/09/2024 06:01 PM EDT
--- OUTSIDE RECORDS SUMMARY | 2024-07-09 18:01 | XMS_ITS ---
Author Organization [facility] Behzad jonah MelendezMike Address [address] [place] [address] Care Team Providers Care Electronic Gluing Machine Operator Name Role Phone Jonn Smith Primary Care Provider [phone] Deanna Baron Unavailable [phone] Allergies No Known Allergies REASON FOR VISIT [...] Active Flomax Active Abilify Active clonazePAM Active [employer] Carbonate 600 MG 1 capsule at be [...] Ordered Date Performed Result Body Sit e 56772-UGZMBGD NAIL, 6 OR MORE 12/26/2023 N/A Encounters Encounter Location Date Provider Diagnosis [facility] K[address] [place] [address] 12/26/2023 Deanna Baron Tinea unguium B35.1 and Type 2 diabetes mellitus with diabetic polyneuropathy E11.42 Assessments Encounter Date Diagnosis (ICD Code) Assessment Notes Treatment Notes Treatment Clinical Notes Section Notes 12/26/2023 Tinea unguium (ICD-10 - B35.1) 12/26/2023 Type 2 diabetes mellitus with diabetic polyneuropathy (ICD-10 - E11.42) Plan Of Treatment Pending Test Test Name Order Date 77945-MUZHHQW NAIL, 6 OR MORE 12/26/2023 Next Appt [...] of a nail nipper and/or dremel-type grinder operator automatic, to a more viable healthy nail plate or bed tissue 6-10. Silver nitrate used for any petechial bleeding as necessary. Definitive antifungal treatment options have been reviewed and discussed with the patient. The patient chooses, no pharmaceutical tx - 93123 Progress Notes * Benjamin ALVAREZ PDOB:1965 (58 yo M)Acc No.[id number]:12/26/2023 Progress Note Patient:?Benjamin Alvarez Provider:?Deanna Baron DPM :1965???Age:58 Y???Sex:Male Wilver e:12/26/2023 Address:[address] [place] [address] [address], [facility] Pcp:Jonn Smith Subjective: * Chief Complaints: * [...] History:?colonoscop y 06/19/21 * Hospitalization/Major Diagno stic Procedure:?JBS-Faufddbqqq-HI visit 12/2018 * Family History:?Mother: alethea canales.?Father: [...] ?Exercise: yes, walking. ?Marital status: single. 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 * Medications:?TakingAbilify c lonazePAM Ciclopirox Olamine 0.77 % Cream 1 application to affected area Externally Twice a day to effected areas on feetFlomax [employer] Carbonate 600 MG Capsule 1 capsule at [...] to effected areas on feetTaking Flomax Taking [employer] Carbonate 600 MG Capsule 1 capsule at [...] of a nail nipper and/or dremel-type grinder operator automatic, to a more viable healthy nail plate or bed tissue 6-10. Silver nitrate used for any petechial bleeding as necessary. Definitive antifungal treatment options have been reviewed and discussed with the patient. The patient chooses, no pharmaceutical tx - 82351.? * Procedure Codes:?07153 DEBRI DE NAIL, 6 OR MORE, Modifiers: XS * Follow Up:?prn * Images: * Sign off status: Completed true * Provider:?Deanna Baron DPM Date:?1 Generated for Senia velásquez/Mary/eTransmitting on:?07/09/2024 06:01 PM EDT History and Physical Notes * HPI (History [...]
--- OUTSIDE RECORDS SUMMARY | 2024-07-09 18:02 | XMS_ITS ---
Author Organization [facility] Address [address] [place] [address] Care Team Providers Care Manager Business Intelligence Name Role Phone BREN RHOADES Primary Care Provider Remy Groves Jr Unavailable Encounters Encounter Location Date Provider Diagnosis [facility] [address] [place] [address] 04/25/2023 Remy Rodriguez Jr Plan Of Treatment No Information Progress Notes * MULUGETA ALVAREZ PDOB:1965 (57 yo M)Acc No.[id number]:04/25/2023 Patient:?MULUGETA ALVAREZ :1965???Age:57 Y???Sex:Male Address:[address] [place] [address] [address], [place] [address] * true * Date:? Generated for Makenziei christen/Mary/eTransmitting on:?07/09/2024 06:01 PM EDT
--- OUTSIDE RECORDS SUMMARY | 2024-07-09 18:02 | XMS_ITS | Patient Health Record ---
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) use of oral hypoglycemic drugs (Z79.84) Active confirmed Plan Of Treatment Future Test Test Name Order Date COLONOSCOPY 05/19/2021 Insurance Providers Payer Name Payer Address Payer Phone Subscriber Number Group Number Insured Name Patient Relationship to Insured Coverage Start Date Coverage End Date MEDICARE OF [place] [address] [place] [address] [id number] MULUGETA ALVAREZ Self - patient is the insured MEDICAID OF [facility] [address] [place] [address] [phone] [id number] MULUGETA ALVAREZ Self - patient is the insured Medical (General) History Medical History History ICD Code diabetes mellitus hypertension schizophrenia BPH Surgical History Surgery Date(Month/Year)
[2024-07-09 18:03] LABS: Alkaline Phosphatase 48 U/L (39-117)
[2024-07-09] MEDS: Dextrose 5 % and 0.9 % NaCl 1,000 ML 80 ML IVCONT (18:58)
[2024-07-09] MEDS: LORazepam 2 MG/ML VIAL 1 MG IVPUSH (19:47)
[2024-07-09] MEDS: OLANZapine 10 MG VIAL 2.5 MG IM (21:07)
[2024-07-10] VITALS (23 sets, daily range): BP systolic 95–151; BP diastolic 60–82; PULSE 74–124; RESP 10–37; TEMP 36.1–37.3; O2SAT 90–97; BMI 28.4
[2024-07-10 04:53] LABS: Basophils Percent Auto 0.3 % (0-2); Hematocrit 39.4 % (42.0-52.0); Hemoglobin 12.5 g/dl (14.0-18.0); Imm Gran Abs Auto 0.07 X10*3/uL (0.00-0.03); Lymphocytes Absolute Auto 2.1 X10*3/uL (1.2-4.9); Lymphocytes Percent Auto 28.8 % (20-40); MANUAL DIFF FLAG NO; Mean Corpuscular HGB Conc 31.7 g/dl (31.0-36.0); Mean Corpuscular Volume 88.3 fL (80.0-98.0); Mean Platelet Volume 12.1 fL (9.4-12.4); Monocytes Absolute Auto 0.7 X10*3/uL (0.1-1.2); Neutrophils Absolute Auto 4.3 x10*3/uL (2.0-8.3); Neutrophils Percent Auto 59.9 % (45-73); Platelet Count 207 X10*3/uL (160-400); Red Blood Count 4.46 X10*6/uL (4.60-5.80); Red Cell Distribution Width 13.9 % (11.0-16.0); White Blood Count 7.1 X10*3/uL (4.8-10.8)
[2024-07-10 05:13] LABS: Alanine Aminotransferase 44 U/L (0-40); Albumin Level 3.5 g/dL (3.5-5.0); Anion Gap 16 (12-20); Aspartate Amino Transferase 53 U/L (5-37); Bilirubin Total 0.7 mg/dL (0.0-1.0); Blood Urea Nitrogen 21 mg/dL (9-16); Calcium 8.6 mg/dL (8.4-10.2); Carbon Dioxide 22 mmol/L (22-29); Chloride 110 mmol/L (96-108); Creatinine Clr Calc Pharmacy 54.9; Estimated Glomerular Filt Rate 44; Glucose Random 279 mg/dL (60-115); Magnesium 2.1 mg/dL (1.6-2.6); Phosphorus 4.6 mg/dL (2.7-4.5); Potassium 3.7 mmol/L (3.3-5.1); Sodium 144 mmol/L (135-145); Total Protein 6.4 g/dL (6.5-8.0)
[2024-07-10 05:19] LABS: Alkaline Phosphatase 44 U/L (39-117)
[2024-07-10] MEDS: Pantoprazole Sodium 40 MG/10 ML VIAL IVPUSH ×2 (06:09→17:23)
[2024-07-10] MEDS: Dextrose 5 % and 0.9 % NaCl 1,000 ML 80 ML IVCONT ×2 (06:12→18:28)
[2024-07-10] MEDS: Famotidine/PF 20 MG/2 ML VIAL IVPUSH ×2 (08:29→21:00)
[2024-07-10] MEDS: Lactated Ringers 1,000 ML 999 ML IV (10:30)
--- NOTE | 2024-07-10 10:46 | MHC.CM.PN ---
Pt transferred [place] [facility] after he became catatonic: pt unable to give information: CM left message for pt's father/HCP requesting a call back. Per EMR and ICU care team: pt resides independently, drives and works. He has a VNA (unknown agency) that assists w/medication administration. Pt will return to [place] [facility] once ICU care is no longer necessary. CM to follow and await callback from pt's father.
--- NOTE | 2024-07-10 11:57 | MHC.CLN ---
PT REQUIRES NGT FOR NUTRITION SUPPORT R/T PROLONGED POOR PO INTAKE AND REFUSAL TO TAKE MEDS AND PO SECONDARY TO CATATONIA CURRENTLY NPO DISCUSSED AT ROUNDS WITH MD-PLAN TO PLACE NGT TODAY RECOMMEND GLUCERNA AT MAX GOAL RATE 95ML/HR WITH 120 Q 6 HRS TO PROVIDE 2280KCALS (28KCALS/KG), 95G PROTEIN (1.2G/KG), 2425ML TOTAL WATER FROM FORMULA AND FLUSHES (30ML/KG) MONITOR TOLERANCE AND LYTES SEE FULL CLINICAL NUTRITION ASSESSMENT
[2024-07-10] MEDS: LORazepam 1 MG TABLET PO ×3 (12:10→21:00)
--- NOTE | 2024-07-10 13:20 | MHC.SL.SWA ---
Speech Pathologist Impression: Moderate dysphagia secondary to fluctuating catatonic state Pt's variable responsiveness directly influences PO tolerance in volitional vs reflexive swallow as overall functional swallow efficiency remains inconsistent Risk of Aspiration Due to: Medically Fragile Neurological Condition History of Pneumonia Poor PO Intake Weak Cough Weak Voice Dysphasia Diet Status: Recommend UPGRADE liquids to REGULAR, continue on current diet of puree, with pills crushed in puree. Liquid Consistency and Strategies for Safe Swallow: Liquid Intake Recommendation: Pablo Thick Liquid Intake Strategies: Small Sips Solid Food Consistency: Dietary Recommendations: Small amounts of puree Additional Modifications to Solid Foods: Recc water for hydration, no thickener but close monitoring Oral Medication Intake: Crushed with Puree Please contact the pharmacy regarding appropriate crushable or liquid drug formulations that are available whenever modified delivery is recommended. Compensatory Strategies and Precautions to be Taken for Safe Swallow: Sitting Upright (90 deg) Small Bites and Sips Rate of Ingestion Change Supervision While Eating and Drinking for Safe Swallow: Total Supervision (1:1) Foods to Avoid: Mixed consistencies Swallowing Recommended Treatments: Recommendation for Speech: Inpatient Speech Therapy Comment: Pt known to scale attendant, seen for bedside re-evaluation today. Pt trialed only with liquids. Pt accepted cup and straw presentations, taking consecutive sips of thins by straw with adequate oropharyngeal coordination. HSE MANAGER cued pt to slow pace but he was unable to follow simple directions. Pt tolerated approximately 10oz of thins, with delayed cough upon taking 2 more oz of thins. Trials of NTL proved more efficient oropharyngeal tolerance as weakness considered a factor in pt ability to coordinate consecutive swallows. Pt able to voice volitionally when cued to 'say /ah/' and voicing clear in echolalic speech production. MD and RN consulted. MD plans for NG tube feeds d/t pt poor PO intake and variable states of unresponsiveness. HSE MANAGER continues to follow, recc liquid diet thickened to nectar, minimal amounts of purees permitted, meds crushed in puree if unable to be taken via NG. Frequency/Duration: M-F daily Date Range for Service Req: Timeline to reassess: Nanotechnology Engineering Technologist Clinican/Clinical Fellow: No Supervisory Statement: I have reviewed and agree with the student/clinical fellow's documentation: N/A Speech Language Pathologist: Francia Pink M.S., [facility]-HSE MANAGER
[2024-07-10] MEDS: Enoxaparin Sodium 40 MG/0.4 ML SYRINGE SUBCUT (14:47)
[2024-07-10] MEDS: Memantine HCl 5 MG TABLET PO (14:47)
--- NOTE | 2024-07-10 16:42 | P.PNCC_ITS ---
Subjective Subjective Date of Service: 07/10/24 Interval History: Mental status stable, agitation improving with IM Zyprexa as needed Critical Care Time (minutes): 35 Physical Exam 2 Vital Signs: Vital Signs: Last Vital Signs Temp 99.1 F 07/10/24 12:00 Pulse 79 07/10/24 16:00 Resp 21 H 07/10/24 16:00 BP 117/65 07/10/24 16:00 Pulse Ox 96 07/10/24 16:00 O2 Del Method Room Air 07/10/24 16:00 Oxygen Flow Rate 1 07/09/24 13:21 BMI result Body Mass Index 28.4 General: Elderly male poorly responsive, lying in the bed Nutritional Appearance: well nourished and overweight Eyes: appearance normal, both eyes and all related structures; Alignment and Position: alignment normal and position normal Neck: No lymphadenopathy, no thyromegaly Resp: bilateral air entry equal, occasional added sounds present Cardio: Regular rate, regular rhythm; Heart sounds: S1 normal heart sound present and S2 normal heart sound present GI: soft, nontender, no guarding, no hepatosplenomegaly : bladder normal to inspection, bladder normal to palpation, no renal angle tenderness Skin: no rashes or lesions noted and elasticity normal Neuro: Disoriented, confused, not following any commands moves all extremities Objective Data Labs 07/10/24 04:29 07/10/24 04:29 Labs: Laboratory Results - last 24 hr 07/09/24 07/09/24 07/10/24 15:04 15:04 04:29 WBC 7.1 RBC 4.46 L Hgb 12.5 L Hct 39.4 L MCV 88.3 MCH 28.0 MCHC 31.7 RDW 13.9 Plt Count 207 MPV 12.1 Immature Gran % (Auto) 1.0 H Neut % (Auto) 59.9 Lymph % (Auto) 28.8 [place] % (Auto) 10.0 Eos % (Auto) 0.0 Baso % (Auto) 0.3 Lymph # (Auto) 2.1 [place] # (Auto) 0.7 Eos # (Auto) 0.0 Baso # (Auto) 0.0 Abs Immat Gran (auto) 0.07 H Absolute Neuts (auto) 4.3 Absolute Nucleated RBC 0.000 Nucleated RBC % (auto) 0.0 Sodium 144 Potassium 3.7 Chloride 110 H Carbon Dioxide 22 Anion Gap 16 BUN 21 H Creatinine 1.59 H Estim Creat Clear Calc 54.9 Estimated GFR 44 Random Glucose 279 H Calcium 8.6 D Phosphorus 4.6 H Magnesium 2.1 Total Bilirubin 0.7 AST 53 H ALT 44 H Alkaline Phosphatase 48 49 44 Total Protein 6.4 L Albumin 3.5 Progress Note: A&P Assessment and plan (1) Schizoaffective disorder, depressive type: Status: Acute (2) Schizoaffective disorder: Status: Acute (3) Catatonia: Status: Acute (4) Schizoaffective disorder: Status: Acute (5) Essential hypertension: Status: Acute (6) Benign prostate hyperplasia: Status: Acute Plan Acute encephalopathy: Secondary to significant schizoaffective disorder and catatonia Symptoms improving with IM Zyprexa, we will continue IM Zyprexa 5 mg b.i.d. Passed swallow evaluation for pleural-based liquids, can take oral medications with this Psych added oral clozapine, lorazepam and memantine Plan is to do a bedside ECT when anesthesia support is available We will place the NG tube for oral feeds Continue IV fluids D5 NS at 80 cc/hour we will closely monitor his respiratory status Prophylaxis with pantoprazole and enoxaparin Needs Dove catheter due to urinary retention Quality Stroke Does the patient have a stroke diagnosis?: No VTE Prior VTE?: No VTE Risk Level:: Medical - low VTE Device Contraindication: N/A - Device Ordered VTE Drug Contraindication: N/A - Med Ordered
[2024-07-10] MEDS: OLANZapine 10 MG VIAL 5 MG IM (17:23)
--- NOTE | 2024-07-10 17:52 | PM.PSYCN ---
History of Present Illness Date of Service: 07/10/24 Chief Complaint: catatonia Reason for Consult: transfer from psych unit Requesting physician: Dawson Carranza Discussed with referring provider: Yes Sources of Information: patient interviewed and chart reviewed HPI Narrative: [address] [address] Discharge Summary Signed Patient: Benjamin Tenorio MR#: [id number] : 1965 Acct:[id number] Age/Sex: 59 / M ADM Date: 06/20/24 Loc: HO.PGERI 175-1 Date of Discharge: 07/09/[address]: Steven Huerta MD cc: Steven Huerta MD; Physician,Unknown ~ DS: Providers Provider Date of Service: 07/09/24 Date of admission: 06/20/24 16:33 Date of discharge: 07/09/24 Primary care physician: Unknown Physician Admitting clinician: Poncho Beauchamp Consults: 06/26/24 11:41 Consult to Hospitalist Stat Comment: spoke with dr owens Consulting Provider: [facility] Reason For Exam: dec o2 sat catatonia 06/27/24 15:08 Consult to Urology Routine Consulting Provider: [facility] Reason for consultation: any rec for urinary retention needs clozaril Has provider been notified: No 07/03/24 08:20 Consult to Hospitalist Stat Comment: Consulting Provider: [facility] Reason For Exam: crackles in R lung, recent pneumonia, O2% 84-93 07/05/24 08:35 Consult to Hospitalist Routine Comment: Consulting Provider: [facility] Reason For Exam: has au on steroid?pneumonitis please follow ? T Attending physician on discharge: Steven Huerta DS: Diagnosis Discharge Diagnosis (1) Schizoaffective disorder, depressive type: Status: Acute (2) Catatonia: Status: Acute (3) Benign prostate hyperplasia: Status: Acute DS: Medications Discharge Medications Home Medications: Previous Rx's Medication Instructions Recorded clozapine 100 mg tablet 200 mg (2 x 100 mg) PO BEDTIME 30 05/21/24 days #60 tabs lorazepam 1 mg tablet 1 mg PO TID 30 days #90 tabs 05/21/24 tamsulosin 0.4 mg capsule 0.4 mg PO BEDTIME 30 days #30 caps 05/21/24 Mental Status Exam Mental Status Exam Narrative: Patient awake staring at the ceiling moving all limbs but non purposely unable to follows simple commands unable to evaluate cognitively. Some degree of echolalia Data Data Completed and Pending Completed studies during hospitalization [Text1]: 07/03/24 07/03/24 07/03/24 09:46 18:20 20:21 WBC 6.1 RBC 4.06 L Hgb 11.6 L Hct 34.8 L MCV 85.7 MCH 28.6 MCHC 33.3 RDW 13.6 Plt Count 143 L MPV 12.9 H Immature Gran % (Auto) 0.3 Neut % (Auto) 66.0 Lymph % (Auto) 24.9 [place] % (Auto) 8.6 Eos % (Auto) 0.0 Baso % (Auto) 0.2 Lymph # (Auto) 1.5 [place] # (Auto) 0.5 Eos # (Auto) 0.0 Baso # (Auto) 0.0 Abs Immat Gran (auto) Not Reportable Absolute Neuts (auto) 4.1 Absolute Nucleated RBC 0.000 Nucleated RBC % (auto) 0.0 Sodium 144 Potassium 4.7 Chloride 113 H Carbon Dioxide 20 L Anion Gap 16 BUN 26 H Creatinine 1.33 Estim Creat Clear Calc 64.0 Estimated GFR 55 Random Glucose 132 H Calcium 9.5 D Magnesium Total Bilirubin AST ALT Alkaline Phosphatase Total Creatine Kinase Troponin I High Sens 6.2 D 6.1 Total Protein Albumin 07/04/24 07/07/24 09:29 21:04 WBC 8.4 RBC 4.43 L Hgb 12.6 L Hct 38.5 L MCV 86.9 MCH 28.4 MCHC 32.7 RDW 13.4 Plt Count 172 MPV 12.5 H Immature Gran % (Auto) 0.5 H Neut % (Auto) 67.0 Lymph % (Auto) 25.5 [place] % (Auto) 6.8 Eos % (Auto) 0.0 Baso % (Auto) 0.2 Lymph # (Auto) 2.1 [place] # (Auto) 0.6 Eos # (Auto) 0.0 Baso # (Auto) 0.0 Abs Immat Gran (auto) 0.04 H Absolute Neuts (auto) 5.6 Absolute Nucleated RBC 0.000 Nucleated RBC % (auto) 0.0 Sodium 145 139 Potassium 4.0 4.2 Chloride 111 H 109 H Carbon Dioxide 25 20 L Anion Gap 13 14 BUN 23 H 21 H Creatinine 1.14 1.30 Estim Creat Clear Calc 74.6 65.4 Estimated GFR > 60 56 Random Glucose 94 188 H Calcium 9.0 8.8 Magnesium 2.1 Total Bilirubin 0.5 AST 48 H ALT 52 H Alkaline Phosphatase 50 Total Creatine Kinase 711 H Troponin I High Sens Total Protein 6.6 Albumin 3.8 07/08/24 Unknown Urine Catheterized - Straight Catheter Urine Culture - Preliminary No growth to date. Imaging Diagnostic Imaging Impressions Chest X-Ray 06/26/24 13:05 IMPRESSION: Airspace opacity at the right lung base which may represent pneumonia. Follow-up is recommended. Electronically signed by: Jacob Hope MD 06/26/2024 01:50 PM EDT RP Chest X-Ray 07/03/24 09:10 IMPRESSION: Mild elevation of the right hemidiaphragm. The lungs are clear. Electronically signed by: Jacob Hope MD 07/03/2024 09:38 AM EDT RP KUB X-Ray 07/03/24 18:00 IMPRESSION: Large amount of stool throughout the colon. No evidence of bowel obstruction. Electronically signed by: Jacob Hope MD 07/04/2024 07:14 AM EDT RP DS: Summary Hospital Course Hospital Course: [address] [place] [address] Psychiatry Admission Note (In) Signed Patient: Benjamin Tenorio MR#: [id number] : 1965 Acct:[id number] Age/Sex: 59 / M Loc: .PGERI 175-[address]: Dahiana Haney NP cc: Poncho Beauchamp MD~ HPI Date of Service: 06/21/24 Chief Complaint: Catatonia Sources of Information: patient interviewed, chart reviewed and crisis/core team assessment reviewed HPI Subjective Notes: [place] Warning and Section 12B Healthcare Proxy: Yes Narrative: The patient is a 59-year-old male, single, with no children, with a past history of schizoaffective disorder, living alone with several ancillary services in the community such as pace and visiting nurse provided by [facility]. The patient is very well known by this facility since he had been admitted at least 3 times in the last 6 months. Usually, he becomes catatonic and gets admitted into the hospital. Historically, he has improved dramatically with ECT and he had been having ECT as an outpatient. The patient is very well known by the team since he had several admissions to this unit with similar presentation due to catatonia. The last time that I saw the patient was last week when he attended to his regular ECT appointment. At that moment the patient was slightly hypoactive. Later on, the [facility] staff came to visit at home and he was found to be catatonic again. He was rushed to the emergency room assessed by the care team and transferring to this facility for psychiatric stabilization. On the intake interview the patient was able to recognize me and he was able to respond with yes no questions but most of the time he was nearly catatonic. He was even able to feed himself but he is not at his baseline. We called his father who is the healthcare proxy and he was signed in a conditional voluntary by healthcare proxy. Past Psychiatric History: Inpatient: multiple in the past. h/o ECT for catatonia. OP: [facility] Past medication trials: clozaril, ativan, sertraline, olanzapine. Medical Evaluation Reviewed: Yes [facility] Medical History Hospital discharge follow-up Mild sleep apnea Tardive dyskinesia Nocturnal hypoxia Routine medical exam Joint inflammation of right hand and wrist Status post fall Adult general medical exam Screening for colon cancer Screening for prostate cancer Cough BPH (benign prostatic hyperplasia) Surgical History History of colonoscopy (~06/15/21) History of tooth extraction History of root canal procedure Family History: unknown Social History: lives independently, works, drives. apartment in [place]. Trauma History: unknown Diagnostics Vital Signs (24Hr): Vital Signs - 24 hr 06/20/24 15:42 06/20/24 18:07 06/21/24 08:04 Temperature 98.2 F 97.9 F 98 F Pulse Rate 85 101 H 101 H Respiratory Rate 16 20 20 Blood Pressure 159/84 H 162/97 H 167/93 H Pulse Oximetry 95 95 94 Oxygen Delivery Method Room Air Room Air BMI result Body Mass Index 21.8 Labs 06/19/24 22:59 document embedded image 06/20/24 19:51 document embedded image Labs: Laboratory Results - last 48 hr 06/19/24 06/20/24 06/20/24 22:59 00:38 16:00 WBC 10.9 H RBC 4.55 L Hgb 13.0 L Hct 38.2 L MCV 84.0 MCH 28.6 MCHC 34.0 RDW 13.9 Plt Count 200 D MPV 10.1 Immature Gran % (Auto) 0.7 H Neut % (Auto) 69.6 Lymph % (Auto) 20.7 [place] % (Auto) 8.8 Eos % (Auto) 0.0 Baso % (Auto) 0.2 Lymph # (Auto) 2.3 [place] # (Auto) 1.0 Eos # (Auto) 0.0 Baso # (Auto) 0.0 Abs Immat Gran (auto) 0.08 H Absolute Neuts (auto) 7.6 Absolute Nucleated RBC 0.000 Nucleated RBC % (auto) 0.0 Sodium 140 Potassium 4.1 Chloride 108 Carbon Dioxide 23 Anion Gap 13 BUN 21 H Creatinine 1.28 Estim Creat Clear Calc 63.3 Estimated GFR 57 Random Glucose 91 Estimat Average Glucose Hemoglobin A1c % Calcium 9.2 Total Bilirubin 0.8 AST 17 ALT 12 Alkaline Phosphatase 50 Troponin I High Sens 3.9 Total Protein 7.1 Albumin 4.2 Triglycerides Cholesterol LDL Cholesterol, Calc HDL Cholesterol Urine Opiates Screen Not Detected Ur Buprenorphine Scrn Not Detected Ur Oxycodone Screen Not Detected Urine Methadone Screen Not Detected Urine Fentanyl Screen Not Detected Ur Barbiturates Screen Not Detected Ur Phencyclidine Scrn Not Detected Ur Amphetamines Screen Not Detected U Benzodiazepines Scrn POSITIVE H Urine Cocaine Screen Not Detected U Marijuana (THC) Screen Not Detected Ethyl Alcohol < 10 Influenza Type A (PCR) NEGATIVE Influenza Type B (PCR) NEGATIVE RSV RNA Qual (PCR) NEGATIVE SARS-CoV-2 RNA (RT-PCR) NEGATIVE 06/20/24 06/21/24 19:51 07:53 WBC RBC Hgb Hct MCV MCH MCHC RDW Plt Count MPV Immature Gran % (Auto) Neut % (Auto) Lymph % (Auto) [place] % (Auto) Eos % (Auto) Baso % (Auto) Lymph # (Auto) [place] # (Auto) Eos # (Auto) Baso # (Auto) Abs Immat Gran (auto) Absolute Neuts (auto) Absolute Nucleated RBC Nucleated RBC % (auto) Sodium 139 Potassium 4.5 Chloride 109 H Carbon Dioxide 19 L Anion Gap 16 BUN 28 H Creatinine 1.42 H Estim Creat Clear Calc 56.4 Estimated GFR 51 Random Glucose 131 H Estimat Average Glucose 111 Hemoglobin A1c % 5.5 Calcium 9.5 Total Bilirubin 0.8 AST 25 ALT 14 Alkaline Phosphatase 53 Troponin I High Sens Total Protein 7.4 Albumin 4.3 Triglycerides 64 Cholesterol 149 LDL Cholesterol, Calc 94 HDL Cholesterol 43 Urine Opiates Screen Ur Buprenorphine Scrn Ur Oxycodone Screen Urine Methadone Screen Urine Fentanyl Screen Ur Barbiturates Screen Ur Phencyclidine Scrn Ur Amphetamines Screen U Benzodiazepines Scrn Urine Cocaine Screen U Marijuana (THC) Screen Ethyl Alcohol Influenza Type A (PCR) Influenza Type B (PCR) RSV RNA Qual (PCR) SARS-CoV-2 RNA (RT-PCR) Meds/Allergies Allergies Allergies Allergy/AdvReac Type Severity Reaction Status Date / Time No Known Allergies [NKA] Allergy Unknown NONE Verified 06/19/24 20:43 Mental Status Exam Mental Status Exam Patient Appearance: Well Grooomed Patient Orientation: Person and Situation Level of Consciousness: Awake and Appropriate Patient Behavior: Guarded and Passive Mood Description: Withdrawn Affect Description: Blunted Patient Cognition Impaired: Yes Ability to Follow Directions: Fair Speech Pattern: Impoverished Hallucinations: None Delusions: Not Present Thought Process: Slowed Thinking Thought Content: positive for Eunice and positive for Poverty of Content Judgement: Poor Assessment & Plan Assessment & Plan (1) Schizoaffective disorder: Status: Acute Code(s): F25.9 - Schizoaffective disorder, unspecified (2) Catatonia: Status: Acute Code(s): F06.1 - Catatonic disorder due to known physiological condition Plan The patient is a 59-year-old male with a past history of schizoaffective disorder and catatonia who was readmitted again for relapse on catatonic symptoms even though that he had been fully compliant with antipsychotics, benzodiazepines and ECT. The patient had been receiving outpatient ECT and apparently in the last days he had been more hypoactive. He was assessed by the care team and transferring to this facility for psychiatric stabilization. Plan 1. Gather more collateral information. 2. Invoke healthcare proxy since the patient at this moment is catatonic unable to sign CV. 3. Referral for ECT. 4. Hospitalist follow-up. 5. Continue with Clozaril and other medications. 6. 15 minute checks. Patient educated on: ECT and medical condition Reason for continued inpatient stay Substantial Risk for: inability to function, rapid decompensation and med/psych decompensation Statement Statement: I have reviewed the history and physical and performed a pertinent examination on my patient. No changes have occurred unless specified. If the History and Physical was not performed prior to admission, the Hospitalist's service will be consulted for completing the admission physical. Time Spent With Patient Time: Total time managing care of this patient today __45__ minutes. Pt was as admitted in a catatonic state clozapine was continued. We had drawn a clozapine level in the emergency room as the patient had failed weekly maintenance ECT and it became clear that the patient had discontinued clozapine at some point as an outpatient The patient had been restarted on clozapine and he was treated with ECT as usually the patient did not respond to lorazepam. After the patient's last ECT on June 26 he did tend to desaturate although was unclear he was given antibiotics prophylactically he was afebrile no elevated white count and he was given a course of steroids for question possible pneumonitis. The patient became increasingly erratic and went from a more akinetic catatonia to a more excited catatonia/delirium. It also became clear that the patient had not been taking his clozapine for a few days and this may have also precipitated a withdrawal especially in the context of steroids. He had also been on Namenda off-label for catatonia Because the patient did not respond to oral treatment with lorazepam Valium became more confused agitated unable to take in food and fluids or oral medication and after consultation with the ICU attending he was transferred to the ICU for further stabilization. We are dealing with combination of catatonia withdrawal from clozapine inadequate intake of food and fluids nonresponse to benzodiazepines for catatonia Call was placed to patient's healthcare proxy his father Pt transferred to icu with delerium / catatonia swallowing difficulties respiratory difficulties. No clear response to benzodiazipines. Discussed consideration with attending of ketamine off label for catatonia and difficulty with respiratory status .NG tube for oral feeding pt not alert not tracking was give n im olanzapine Past Psychiatric History: Inpatient: multiple in the past. h/o ECT for catatonia. OP: [facility] Past medication trials: clozaril, ativan, sertraline, olanzapine. [facility] Medical History Hospital discharge follow-up Mild sleep apnea Tardive dyskinesia Nocturnal hypoxia Routine medical exam Joint inflammation of right hand and wrist Status post fall Adult general medical exam Screening for colon cancer Screening for prostate cancer Cough BPH (benign prostatic hyperplasia) Surgical History History of colonoscopy (~06/15/21) History of tooth extraction History of root canal procedure Family History: unknown Social History: lives independently, works, drives. apartment in [place]. Trauma History: unknown Diagnostics Vital Signs (24Hr): Vital Signs - 24 hr 07/09/24 18:00 07/09/24 19:00 07/09/24 19:49 Temperature Pulse Rate 104 H 103 H 102 H Respiratory Rate 20 20 20 Blood Pressure 118/85 117/84 143/88 H Pulse Oximetry 94 95 94 Oxygen Delivery Method Room Air Room Air Room Air 07/09/24 20:00 07/09/24 21:00 07/09/24 22:00 Temperature Pulse Rate 104 H 95 94 Respiratory Rate 20 20 22 H Blood Pressure 142/86 H 115/68 112/70 Pulse Oximetry 94 93 94 Oxygen Delivery Method Room Air Room Air Room Air 07/09/24 23:00 07/10/24 00:00 07/10/24 01:00 Temperature 97.2 F Pulse Rate 95 88 88 Respiratory Rate 16 16 Blood Pressure 128/62 106/67 103/61 Pulse Oximetry 91 L 92 94 Oxygen Delivery Method Room Air Room Air Room Air 07/10/24 01:58 07/10/24 02:56 07/10/24 04:00 Temperature Pulse Rate 88 87 85 Respiratory Rate 22 H 16 18 Blood Pressure 109/66 101/71 95/68 Pulse Oximetry 91 L 93 95 Oxygen Delivery Method Room Air Room Air Room Air 07/10/24 05:00 07/10/24 06:00 07/10/24 06:00 Temperature 97.0 F Pulse Rate 124 H 80 85 Respiratory Rate 37 H 16 20 Blood Pressure 101/63 111/63 111/63 Pulse Oximetry 96 92 95 Oxygen Delivery Method Room Air Room Air Room Air 07/10/24 07:00 07/10/24 08:00 07/10/24 09:00 Temperature 97.9 F Pulse Rate 80 82 81 Respiratory Rate 27 H 20 19 Blood Pressure 105/63 110/63 105/75 Pulse Oximetry 90 L 90 L 94 Oxygen Delivery Method Room Air Room Air Room Air 07/10/24 10:00 07/10/24 11:00 07/10/24 12:00 Temperature 99.1 F Pulse Rate 84 89 97 Respiratory Rate 17 13 15 Blood Pressure 127/76 132/81 144/82 H Pulse Oximetry 95 95 95 Oxygen Delivery Method Room Air Room Air Room Air 07/10/24 13:00 07/10/24 14:00 07/10/24 15:00 Temperature Pulse Rate 96 96 87 Respiratory Rate 11 L 14 19 Blood Pressure 151/78 H 141/68 H 149/73 H Pulse Oximetry 95 96 94 Oxygen Delivery Method Room Air Room Air Room Air 07/10/24 16:00 07/10/24 17:00 Temperature Pulse Rate 79 74 Respiratory Rate 21 H 23 H Blood Pressure 117/65 121/64 Pulse Oximetry 96 97 Oxygen Delivery Method Room Air Room Air BMI result Body Mass Index 28.4 Labs 07/28/24 07:53 07/28/24 07:53 Labs: Laboratory Results - last 48 hr 07/09/24 07/09/24 07/09/24 15:04 15:04 15:04 WBC Cancelled 10.1 RBC Cancelled 4.76 Hgb Cancelled Hct MCV MCH MCHC RDW Plt Count MPV Immature Gran % (Auto) Neut % (Auto) Lymph % (Auto) [place] % (Auto) Eos % (Auto) Baso % (Auto) Lymph # (Auto) [place] # (Auto) Eos # (Auto) Baso # (Auto) Abs Immat Gran (auto) Absolute Neuts (auto) Absolute Nucleated RBC Nucleated RBC % (auto) Sodium Potassium Chloride Carbon Dioxide Anion Gap BUN Creatinine Estim Creat Clear Calc Estimated GFR POC Glucose Random Glucose Calcium Phosphorus Magnesium Total Bilirubin AST ALT Alkaline Phosphatase Total Protein Albumin 07/09/24 07/09/24 07/09/24 15:04 15:04 15:04 WBC RBC Hgb 13.6 L Hct Cancelled 40.0 L MCV Cancelled 84.0 MCH Cancelled MCHC RDW Plt Count MPV Immature Gran % (Auto) Neut % (Auto) Lymph % (Auto) [place] % (Auto) Eos % (Auto) Baso % (Auto) Lymph # (Auto) [place] # (Auto) Eos # (Auto) Baso # (Auto) Abs Immat Gran (auto) Absolute Neuts (auto) Absolute Nucleated RBC Nucleated RBC % (auto) Sodium Potassium Chloride Carbon Dioxide Anion Gap BUN Creatinine Estim Creat Clear Calc Estimated GFR POC Glucose Random Glucose Calcium Phosphorus Magnesium Total Bilirubin AST ALT Alkaline Phosphatase Total Protein Albumin 07/09/24 07/09/24 07/09/24 15:04 15:04 15:04 WBC RBC Hgb Hct MCV MCH 28.6 MCHC Cancelled 34.0 RDW Cancelled 13.7 Plt Count Cancelled MPV Immature Gran % (Auto) Neut % (Auto) Lymph % (Auto) [place] % (Auto) Eos % (Auto) Baso % (Auto) Lymph # (Auto) [place] # (Auto) Eos # (Auto) Baso # (Auto) Abs Immat Gran (auto) Absolute Neuts (auto) Absolute Nucleated RBC Nucleated RBC % (auto) Sodium Potassium Chloride Carbon Dioxide Anion Gap BUN Creatinine Estim Creat Clear Calc Estimated GFR POC Glucose Random Glucose Calcium Phosphorus Magnesium Total Bilirubin AST ALT Alkaline Phosphatase Total Protein Albumin 07/09/24 07/09/24 07/09/24 15:04 15:04 15:04 WBC RBC Hgb Hct MCV MCH MCHC RDW Plt Count 219 D MPV Cancelled 11.8 Immature Gran % (Auto) Cancelled 0.4 Neut % (Auto) Cancelled Lymph % (Auto) [place] % (Auto) Eos % (Auto) Baso % (Auto) Lymph # (Auto) [place] # (Auto) Eos # (Auto) Baso # (Auto) Abs Immat Gran (auto) Absolute Neuts (auto) Absolute Nucleated RBC Nucleated RBC % (auto) Sodium Potassium Chloride Carbon Dioxide Anion Gap BUN Creatinine Estim Creat Clear Calc Estimated GFR POC Glucose Random Glucose Calcium Phosphorus Magnesium Total Bilirubin AST ALT Alkaline Phosphatase Total Protein Albumin 07/09/24 07/09/24 07/09/24 15:04 15:04 15:04 WBC RBC Hgb Hct MCV MCH MCHC RDW Plt Count MPV Immature Gran % (Auto) Neut % (Auto) 77.2 H Lymph % (Auto) Cancelled 14.0 L [place] % (Auto) Cancelled 8.3 Eos % (Auto) Cancelled Baso % (Auto) Lymph # (Auto) [place] # (Auto) Eos # (Auto) Baso # (Auto) Abs Immat Gran (auto) Absolute Neuts (auto) Absolute Nucleated RBC Nucleated RBC % (auto) Sodium Potassium Chloride Carbon Dioxide Anion Gap BUN Creatinine Estim Creat Clear Calc Estimated GFR POC Glucose Random Glucose Calcium Phosphorus Magnesium Total Bilirubin AST ALT Alkaline Phosphatase Total Protein Albumin 07/09/24 07/09/24 07/09/24 15:04 15:04 15:04 WBC RBC Hgb Hct MCV MCH MCHC RDW Plt Count MPV Immature Gran % (Auto) Neut % (Auto) Lymph % (Auto) [place] % (Auto) Eos % (Auto) 0.0 Baso % (Auto) Cancelled 0.1 Lymph # (Auto) Cancelled 1.4 [place] # (Auto) Cancelled Eos # (Auto) Baso # (Auto) Abs Immat Gran (auto) Absolute Neuts (auto) Absolute Nucleated RBC Nucleated RBC % (auto) Sodium Potassium Chloride Carbon Dioxide Anion Gap BUN Creatinine Estim Creat Clear Calc Estimated GFR POC Glucose Random Glucose Calcium Phosphorus Magnesium Total Bilirubin AST ALT Alkaline Phosphatase Total Protein Albumin 07/09/24 07/09/24 07/09/24 15:04 15:04 15:04 WBC RBC Hgb Hct MCV MCH MCHC RDW Plt Count MPV Immature Gran % (Auto) Neut % (Auto) Lymph % (Auto) [place] % (Auto) Eos % (Auto) Baso % (Auto) Lymph # (Auto) [place] # (Auto) 0.8 Eos # (Auto) Cancelled 0.0 Baso # (Auto) Cancelled 0.0 Abs Immat Gran (auto) Cancelled Absolute Neuts (auto) Absolute Nucleated RBC Nucleated RBC % (auto) Sodium Potassium Chloride Carbon Dioxide Anion Gap BUN Creatinine Estim Creat Clear Calc Estimated GFR POC Glucose Random Glucose Calcium Phosphorus Magnesium Total Bilirubin AST ALT Alkaline Phosphatase Total Protein Albumin 07/09/24 07/09/24 07/09/24 15:04 15:04 15:04 WBC RBC Hgb Hct MCV MCH MCHC RDW Plt Count MPV Immature Gran % (Auto) Neut % (Auto) Lymph % (Auto) [place] % (Auto) Eos % (Auto) Baso % (Auto) Lymph # (Auto) [place] # (Auto) Eos # (Auto) Baso # (Auto) Abs Immat Gran (auto) 0.04 H Absolute Neuts (auto) Cancelled 7.8 Absolute Nucleated RBC Cancelled 0.000 Nucleated RBC % (auto) Cancelled Sodium Potassium Chloride Carbon Dioxide Anion Gap BUN Creatinine Estim Creat Clear Calc Estimated GFR POC Glucose Random Glucose Calcium Phosphorus Magnesium Total Bilirubin AST ALT Alkaline Phosphatase Total Protein Albumin 07/09/24 07/09/24 07/09/24 15:04 15:04 15:04 WBC RBC Hgb Hct MCV MCH MCHC RDW Plt Count MPV Immature Gran % (Auto) Neut % (Auto) Lymph % (Auto) [place] % (Auto) Eos % (Auto) Baso % (Auto) Lymph # (Auto) [place] # (Auto) Eos # (Auto) Baso # (Auto) Abs Immat Gran (auto) Absolute Neuts (auto) Absolute Nucleated RBC Nucleated RBC % (auto) 0.0 Sodium 141 141 Potassium 4.4 4.4 Chloride 108 Carbon Dioxide Anion Gap BUN Creatinine Estim Creat Clear Calc Estimated GFR POC Glucose Random Glucose Calcium Phosphorus Magnesium Total Bilirubin AST ALT Alkaline Phosphatase Total Protein Albumin 07/09/24 07/09/24 07/09/24 15:04 15:04 15:04 WBC RBC Hgb Hct MCV MCH MCHC RDW Plt Count MPV Immature Gran % (Auto) Neut % (Auto) Lymph % (Auto) [place] % (Auto) Eos % (Auto) Baso % (Auto) Lymph # (Auto) [place] # (Auto) Eos # (Auto) Baso # (Auto) Abs Immat Gran (auto) Absolute Neuts (auto) Absolute Nucleated RBC Nucleated RBC % (auto) Sodium Potassium Chloride 107 Carbon Dioxide 21 L 23 Anion Gap 16 15 BUN 18 H Creatinine Estim Creat Clear Calc Estimated GFR POC Glucose Random Glucose Calcium Phosphorus Magnesium Total Bilirubin AST ALT Alkaline Phosphatase Total Protein Albumin 07/09/24 07/09/24 07/09/24 15:04 15:04 15:04 WBC RBC Hgb Hct MCV MCH MCHC RDW Plt Count MPV Immature Gran % (Auto) Neut % (Auto) Lymph % (Auto) [place] % (Auto) Eos % (Auto) Baso % (Auto) Lymph # (Auto) [place] # (Auto) Eos # (Auto) Baso # (Auto) Abs Immat Gran (auto) Absolute Neuts (auto) Absolute Nucleated RBC Nucleated RBC % (auto) Sodium Potassium Chloride Carbon Dioxide Anion Gap BUN 19 H Creatinine 1.29 1.33 Estim Creat Clear Calc TNP TNP Estimated GFR 57 POC Glucose Random Glucose Calcium Phosphorus Magnesium Total Bilirubin AST ALT Alkaline Phosphatase Total Protein Albumin 07/09/24 07/09/24 07/09/24 15:04 15:04 15:04 WBC RBC Hgb Hct MCV MCH MCHC RDW Plt Count MPV Immature Gran % (Auto) Neut % (Auto) Lymph % (Auto) [place] % (Auto) Eos % (Auto) Baso % (Auto) Lymph # (Auto) [place] # (Auto) Eos # (Auto) Baso # (Auto) Abs Immat Gran (auto) Absolute Neuts (auto) Absolute Nucleated RBC Nucleated RBC % (auto) Sodium Potassium Chloride Carbon Dioxide Anion Gap BUN Creatinine Estim Creat Clear Calc Estimated GFR 55 POC Glucose Random Glucose 97 96 Calcium 9.4 D 9.5 Phosphorus Magnesium Total Bilirubin 0.9 AST ALT Alkaline Phosphatase Total Protein Albumin 07/09/24 07/09/24 07/09/24 15:04 15:04 15:04 WBC RBC Hgb Hct MCV MCH MCHC RDW Plt Count MPV Immature Gran % (Auto) Neut % (Auto) Lymph % (Auto) [place] % (Auto) Eos % (Auto) Baso % (Auto) Lymph # (Auto) [place] # (Auto) Eos # (Auto) Baso # (Auto) Abs Immat Gran (auto) Absolute Neuts (auto) Absolute Nucleated RBC Nucleated RBC % (auto) Sodium Potassium Chloride Carbon Dioxide Anion Gap BUN Creatinine Estim Creat Clear Calc Estimated GFR POC Glucose Random Glucose Calcium Phosphorus Magnesium Total Bilirubin 0.9 AST 59 H 61 H ALT 50 H 51 H Alkaline Phosphatase 48 Total Protein Albumin 07/09/24 07/09/24 07/09/24 15:04 15:04 15:04 WBC RBC Hgb Hct MCV MCH MCHC RDW Plt Count MPV Immature Gran % (Auto) Neut % (Auto) Lymph % (Auto) [place] % (Auto) Eos % (Auto) Baso % (Auto) Lymph # (Auto) [place] # (Auto) Eos # (Auto) Baso # (Auto) Abs Immat Gran (auto) Absolute Neuts (auto) Absolute Nucleated RBC Nucleated RBC % (auto) Sodium Potassium Chloride Carbon Dioxide Anion Gap BUN Creatinine Estim Creat Clear Calc Estimated GFR POC Glucose Random Glucose Calcium Phosphorus Magnesium Total Bilirubin AST ALT Alkaline Phosphatase 49 Total Protein 6.9 7.0 Albumin 3.9 4.0 07/09/24 07/10/24 15:18 04:29 WBC 7.1 RBC 4.46 L Hgb 12.5 L Hct 39.4 L MCV 88.3 MCH 28.0 MCHC 31.7 RDW 13.9 Plt Count 207 MPV 12.1 Immature Gran % (Auto) 1.0 H Neut % (Auto) 59.9 Lymph % (Auto) 28.8 [place] % (Auto) 10.0 Eos % (Auto) 0.0 Baso % (Auto) 0.3 Lymph # (Auto) 2.1 [place] # (Auto) 0.7 Eos # (Auto) 0.0 Baso # (Auto) 0.0 Abs Immat Gran (auto) 0.07 H Absolute Neuts (auto) 4.3 Absolute Nucleated RBC 0.000 Nucleated RBC % (auto) 0.0 Sodium 144 Potassium 3.7 Chloride 110 H Carbon Dioxide 22 Anion Gap 16 BUN 21 H Creatinine 1.59 H Estim Creat Clear Calc 54.9 Estimated GFR 44 POC Glucose 113 Random Glucose 279 H Calcium 8.6 D Phosphorus 4.6 H Magnesium 2.1 Total Bilirubin 0.7 AST 53 H ALT 44 H Alkaline Phosphatase 44 Total Protein 6.4 L Albumin 3.5 Mental Status Exam Mental Status Exam Narrative: Patient awake staring at the ceiling moving all limbs but non purposely unable to follows simple commands unable to evaluate cognitively. Some periods of restlessness not responding to name some congestion noted Medications Medications Current Medications Clozapine (Clozapine 25 Mg Tablet) 25 mg PO BEDTIME [facility] Cyproheptadine HCl (Cyproheptadine Hcl 4 Mg Tablet) 4 mg PO TID [facility] Enoxaparin Sodium (Enoxaparin Sodium 40 Mg/0.4 Ml Syringe) 40 mg SUBCUT Q24H [facility] Last Admin: 07/10/24 14:47 Dose: 40 mg Famotidine (Famotidine/Pf 20 Mg/2 Ml Vial) 20 mg IVPUSH BID [facility] Last Admin: 07/10/24 08:29 Dose: 20 mg Dextrose/Sodium Chloride (D5ns) 1,000 mls @ 80 mls/hr IVCONT .[id number] [facility] Last Admin: 07/10/24 06:12 Dose: 80 mls/hr Lorazepam (Lorazepam 2 Mg/Ml Vial) 1 mg IVPUSH Q4H PRN PRN Reason: agitation Last Admin: 07/09/24 19:47 Dose: 1 mg Lorazepam (Lorazepam 1 Mg Tablet) 1 mg PO TID [facility] Last Admin: 07/10/24 14:47 Dose: 1 mg Memantine (Memantine Hcl 5 Mg Tablet) 5 mg PO DAILY [facility] Last Admin: 07/10/24 14:47 Dose: 5 mg Olanzapine (Olanzapine 10 Mg Vial) 5 mg IM BIDWM [facility] Last Admin: 07/10/24 17:23 Dose: 5 mg Pantoprazole Sodium (Pantoprazole Sodium 40 Mg/10 Ml Vial) 40 mg IVPUSH BID@0630,1630 [facility] Last Admin: 07/10/24 17:23 Dose: 40 mg Allergies Allergies Allergy/AdvReac Type Severity Reaction Status Date / Time No Known Allergies [NKA] Allergy Unknown NONE Verified 06/19/24 20:43 Assessment & Plan Assessment & Plan (1) Schizoaffective disorder: Status: Acute Code(s): F25.9 - Schizoaffective disorder, unspecified (2) Catatonia: Status: Acute Code(s): F06.1 - Catatonic disorder due to known physiological condition (3) Essential hypertension: Status: Acute Code(s): I10 - Essential (primary) hypertension (4) Pulmonary aspiration: Status: Acute Code(s): T17.900A - Unspecified foreign body in respiratory tract, part unspecified causing asphyxiation, initial encounter (5) Acute respiratory failure with hypoxia: Status: Acute Code(s): J96.01 - Acute respiratory failure with hypoxia Plan discussed xase extensively with icu staff disabilities services officer discussed need for nutrition ng placement consideration of lorazepam namenda for catatonia consider ect discussed off label tx pro cons call placed to father Total time managing care of this patient today ____ minutes. Informed Consent: does not understand
[2024-07-10] MEDS: Cyproheptadine HCl 4 MG TABLET PO ×2 (18:28→21:00)
--- NOTE | 2024-07-10 19:14 | PC.NURSE ---
Assumed care of patient 0700. Psych MD present at rounds. Plan to incorporate PO medications for treatment. Pt passed swallow eval with Speech therapy approx 11:00. Okay to have medications crushed in thickened liquids. [place] thick liquids diet. Pt able to take PO medications this shift. 18:00 Per MD insert NGT for tube feed nutrition. NGT placed left nare. CXR confirmed placement.
[2024-07-10] MEDS: cloZAPine 25 MG TABLET PO (21:00)
[2024-07-11] VITALS (24 sets, daily range): BP systolic 98–151; BP diastolic 59–85; PULSE 61–95; RESP 14–26; TEMP 36.4–37.3; O2SAT 91–97; BMI 28.8
[2024-07-11] MEDS: Pantoprazole Sodium 40 MG/10 ML VIAL IVPUSH ×2 (05:44→16:01)
[2024-07-11 05:57] LABS: Basophils Percent Auto 0.2 % (0-2); Hematocrit 36.1 % (42.0-52.0); Hemoglobin 11.5 g/dl (14.0-18.0); Imm Gran Abs Auto 0.03 X10*3/uL (0.00-0.03); Imm Gran Pct Auto 0.5 % (0.0-0.4); Lymphocytes Absolute Auto 1.6 X10*3/uL (1.2-4.9); Lymphocytes Percent Auto 24.9 % (20-40); MANUAL DIFF FLAG NO; Mean Corpuscular HGB Conc 31.9 g/dl (31.0-36.0); Mean Corpuscular Hemoglobin 27.8 pg (27.0-33.0); Mean Corpuscular Volume 87.2 fL (80.0-98.0); Mean Platelet Volume 11.9 fL (9.4-12.4); Monocytes Absolute Auto 0.6 X10*3/uL (0.1-1.2); Monocytes Percent Auto 9.5 % (2-11); Neutrophils Absolute Auto 4.3 x10*3/uL (2.0-8.3); Neutrophils Percent Auto 64.9 % (45-73); Platelet Count 187 X10*3/uL (160-400); Red Blood Count 4.14 X10*6/uL (4.60-5.80); Red Cell Distribution Width 13.8 % (11.0-16.0); White Blood Count 6.5 X10*3/uL (4.8-10.8)
[2024-07-11 06:01] LABS: Alanine Aminotransferase 31 U/L (0-40); Albumin Level 3.3 g/dL (3.5-5.0); Anion Gap 11 (12-20); Aspartate Amino Transferase 24 U/L (5-37); Bilirubin Total 0.6 mg/dL (0.0-1.0); Blood Urea Nitrogen 15 mg/dL (9-16); Calcium 8.5 mg/dL (8.4-10.2); Carbon Dioxide 22 mmol/L (22-29); Chloride 114 mmol/L (96-108); Creatinine Clr Calc Pharmacy 67.7; Estimated Glomerular Filt Rate 56; Glucose Random 127 mg/dL (60-115); Phosphorus 3.1 mg/dL (2.7-4.5); Potassium 3.9 mmol/L (3.3-5.1); Sodium 143 mmol/L (135-145); Total Protein 5.9 g/dL (6.5-8.0)
--- NOTE | 2024-07-11 06:02 | PC.NURSE ---
Assumed care 1900 - pt alert to name, mostly nonverbal, does follow commands. Pt with audible congestion, nasopharyngeal suctioning performed - thick cream secretions. SpO2 > 90% on RA. Medications administered via NGT, oral care provided.
[2024-07-11 06:12] LABS: Alkaline Phosphatase 43 U/L (39-117)
[2024-07-11] MEDS: Dextrose 5 % and 0.9 % NaCl 1,000 ML 80 ML IVCONT (07:19)
[2024-07-11] MEDS: OLANZapine 10 MG VIAL 5 MG IM ×2 (07:33→16:04)
[2024-07-11] MEDS: Famotidine/PF 20 MG/2 ML VIAL IVPUSH (08:22)
[2024-07-11] MEDS: LORazepam 1 MG TABLET PO ×3 (08:23→20:43)
[2024-07-11] MEDS: Memantine HCl 5 MG TABLET PO (08:23)
[2024-07-11] MEDS: Cyproheptadine HCl 4 MG TABLET PO ×3 (08:23→20:43)
--- NOTE | 2024-07-11 11:50 | P.PNCC_ITS ---
Subjective Subjective Date of Service: 07/11/24 Interval History: Stable, no continuous medications Was cleared for pureed thick fluid diet yesterday but stopped due to concerns for aspiration Has a NG tube, we will start tube feeds Critical Care Time (minutes): 35 Physical Exam 2 Vital Signs: Vital Signs: Last Vital Signs Temp 97.6 F 07/11/24 08:00 Pulse 79 07/11/24 11:00 Resp 18 07/11/24 11:00 BP 144/76 H 07/11/24 11:00 Pulse Ox 95 07/11/24 11:00 O2 Del Method Room Air 07/11/24 11:00 Oxygen Flow Rate 1 07/09/24 13:21 BMI result Body Mass Index 28.8 General: Elderly male, confused, not in acute distress lying in the bed Nutritional Appearance: well nourished and overweight Eyes: appearance normal, both eyes and all related structures; Alignment and Position: alignment normal and position normal Neck: No lymphadenopathy, no thyromegaly Resp: bilateral air entry equal, no added sounds present Cardio: Regular rate, regular rhythm; Heart sounds: S1 normal heart sound present and S2 normal heart sound present GI: soft, nontender, no guarding, no hepatosplenomegaly : bladder normal to inspection, bladder normal to palpation, no renal angle tenderness Skin: no rashes or lesions noted and elasticity normal Neuro: Confused, not following commands, moves all extremities Objective Data Labs 07/11/24 04:29 07/11/24 05:08 Labs: Laboratory Results - last 24 hr 07/11/24 07/11/24 04:29 05:08 WBC 6.5 RBC 4.14 L Hgb 11.5 L Hct 36.1 L MCV 87.2 MCH 27.8 MCHC 31.9 RDW 13.8 Plt Count 187 MPV 11.9 Immature Gran % (Auto) 0.5 H Neut % (Auto) 64.9 Lymph % (Auto) 24.9 [place] % (Auto) 9.5 Eos % (Auto) 0.0 Baso % (Auto) 0.2 Lymph # (Auto) 1.6 [place] # (Auto) 0.6 Eos # (Auto) 0.0 Baso # (Auto) 0.0 Abs Immat Gran (auto) 0.03 Absolute Neuts (auto) 4.3 Absolute Nucleated RBC 0.000 Nucleated RBC % (auto) 0.0 Sodium 143 Potassium 3.9 Chloride 114 H Carbon Dioxide 22 Anion Gap 11 L BUN 15 Creatinine 1.30 Estim Creat Clear Calc 67.7 Estimated GFR 56 Random Glucose 127 H Calcium 8.5 Phosphorus 3.1 Magnesium 2.0 Total Bilirubin 0.6 AST 24 ALT 31 Alkaline Phosphatase 43 Total Protein 5.9 L Albumin 3.3 L Progress Note: A&P Assessment and plan (1) Schizoaffective disorder, depressive type: Status: Acute (2) Schizoaffective disorder: Status: Acute (3) Catatonia: Status: Acute (4) Schizoaffective disorder: Status: Acute Plan Acute encephalopathy: Secondary to significant schizoaffective disorder and catatonia continue IM Zyprexa 5 mg b.i.d. 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 Passed swallow evaluation for puree-based liquids, but due to concerns for aspiration overnight oral feeds with held. Patient has a NG tube we will continue with NG tube medications and we will start tube feeds. will stop standing IV fluids we will closely monitor his respiratory status, no leukocytosis, chest x-ray clear Prophylaxis with pantoprazole and enoxaparin Dove catheter due to urinary retention Quality Stroke Does the patient have a stroke diagnosis?: No VTE Prior VTE?: No VTE Risk Level:: Medical - low VTE Device Contraindication: N/A - Device Ordered VTE Drug Contraindication: N/A - Med Ordered
--- NOTE | 2024-07-11 12:13 | MHC.CLN ---
F/U NGT PLACED LAST EVENING FOR NUTRITION SUPPORT DISCUSSED AT ROUNDS WITH MD-PLAN TO START TF RECOMMEND GLUCERNA AT MAX GOAL RATE 95ML/HR WITH 120 Q 6 HRS TO PROVIDE 2280KCALS (28KCALS/KG), 95G PROTEIN (1.2G/KG), 2425ML TOTAL WATER FROM FORMULA AND FLUSHES (30ML/KG) MONITOR TOLERANCE AND LYTES
--- NOTE | 2024-07-11 12:26 | MHC.SLORD ---
Speech Language Pathology Order Status: Per RN, patient minimally responsive this morning, not appropriate for re-assessment or PO trials. Per Dr. Carranza, Patient put on recommended diet of Puree/NT liquids 07/10, however RN overnight reported patient showed signs of aspiration when given puree, with patient made NPO. Patient recieving nutrition via NG tube as safest means at the moment, with MD recommending continue NPO.
[2024-07-11] MEDS: Enoxaparin Sodium 40 MG/0.4 ML SYRINGE SUBCUT (15:11)
[2024-07-11] MEDS: LORazepam 2 MG/ML VIAL 1 MG IVPUSH (15:31)
--- NOTE | 2024-07-11 18:15 | PC.NURSE ---
Assumed care at 0700. Pt rousable and tracks visually but does not follow commands or answer questions. Sitter in room for patient safety. Audible secretions in throat; oral suction reduced these somewhat. At approx 1530, pt was able to pull out NG tube. Ativan administered and replacement tube placed. Pt talking, muttered, difficult to understand speech, singing along to television jingles. See MAR for medication details. Pt repositioned q2hr; bed in low position and locked.
[2024-07-11] MEDS: cloZAPine 25 MG TABLET PO (20:43)
[2024-07-12] VITALS (26 sets, daily range): BP systolic 109–167; BP diastolic 60–102; PULSE 70–107; RESP 12–27; TEMP 36.2–37.1; O2SAT 90–97; BMI 29.1
[2024-07-12] MEDS: Pantoprazole Sodium 40 MG/10 ML VIAL IVPUSH ×2 (05:25→16:07)
[2024-07-12] MEDS: LORazepam 2 MG/ML VIAL 1 MG IVPUSH ×2 (06:21→23:07)
--- NOTE | 2024-07-12 06:33 | PC.NURSE ---
Assumed care 1900 - pt lethargic, opens eyes to name, follows commands at times. Mumbles words, speech unclear. SpO2 >90% on RA, requiring frequent oral suctioning - thick cream secretions. Tube feeds advanced as tolerated.? Around 0620 pt having increased agitation, prn Ativan administered?per MAY. 1:1 sitter at bedside for safety.?
[2024-07-12] MEDS: OLANZapine 10 MG VIAL 5 MG IM ×2 (07:32→16:13)
[2024-07-12] MEDS: Memantine HCl 5 MG TABLET PO (08:05)
[2024-07-12] MEDS: Cyproheptadine HCl 4 MG TABLET PO ×3 (08:05→21:38)
[2024-07-12] MEDS: LORazepam 1 MG TABLET PO ×3 (08:05→21:37)
--- NOTE | 2024-07-12 09:14 | PM.CCPN ---
Subjective Subjective Date of Service: 07/12/24 Interval History: No new events overnight, clinical stable Plan to start on ketamine drip today Critical Care Time (minutes): 35 Physical Exam Vital Signs: Vital Signs: Last Vital Signs Temp 98.5 F 07/12/24 08:00 Pulse 106 H 07/12/24 09:00 Resp 20 07/12/24 09:00 BP 167/89 H 07/12/24 09:00 Pulse Ox 92 07/12/24 09:00 O2 Del Method Room Air 07/12/24 09:00 Oxygen Flow Rate 1 07/09/24 13:21 BMI result Body Mass Index 29.1 General: male lying in the bed, confused and poorly responsive Nutritional Appearance: well nourished and overweight Eyes: appearance normal, both eyes and all related structures; Alignment and Position: alignment normal and position normal Neck: No lymphadenopathy, no thyromegaly Resp: bilateral air entry equal, occasional added sounds present Cardio: Regular rate, regular rhythm; Heart sounds: S1 normal heart sound present and S2 normal heart sound present GI: soft, nontender, no guarding, no hepatosplenomegaly : bladder normal to inspection, bladder normal to palpation, no renal angle tenderness Skin: no rashes or lesions noted and elasticity normal Neuro: o confused, poorly responsive, moves all extremities Objective Data Labs 07/11/24 04:29 07/11/24 05:08 Progress Note: A&P Assessment and plan (1) Schizoaffective disorder, depressive type: Status: Acute (2) Schizoaffective disorder: Status: Acute (3) Catatonia: Status: Acute (4) Schizoaffective disorder: Status: Acute (5) Essential hypertension: Status: Acute Plan Acute encephalopathy: Secondary to significant schizoaffective disorder and catatonia continue IM Zyprexa 5 mg b.i.d. continue oral clozapine, lorazepam and memantine We will give him a trial of ketamine drip to see if his mentation improves with it. 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 Patient has a NG tube we will continue with NG tube medications and continue tube feeds. we will closely monitor his respiratory status, no leukocytosis, chest x-ray clear Prophylaxis with pantoprazole and enoxaparin Dove catheter due to urinary retention Quality Stroke Does the patient have a stroke diagnosis?: No VTE Prior VTE?: No VTE Risk Level:: Medical - low VTE Device Contraindication: N/A - Device Ordered VTE Drug Contraindication: N/A - Med Ordered
[2024-07-12] MEDS: Labetalol HCL 100 MG/20 ML VIAL 10 MG IVPUSH (09:34)
[2024-07-12] MEDS: Ketamine HCl 500 MG in 0.9 % Sodium Chloride 250 ML 18.77 MG IVCONT (11:16)
--- NOTE | 2024-07-12 11:58 | MHC.CLN ---
F/U DISCUSSED AT ROUNDS WITH MD-PLAN TO CHANGE TF TO NON DM FORMULA RECOMMEND JEVITY 1.0 AT MAX GOAL RATE 90ML/HR WITH 240 Q 8 HRS TO PROVIDE 2289KCALS (28KCALS/KG), 95G PROTEIN (1.2G/KG), 2524ML TOTAL WATER FROM FORMULA AND FLUSHES (31ML/KG) MONITOR TOLERANCE AND LYTES
--- NOTE | 2024-07-12 13:34 | MHC.CM.PN ---
Pt continues care in ICU: care plan directed by psych: pt will start on Ketamine gtt today: some periods of alertness: pt will return to INPT psych once medically stable.
--- NOTE | 2024-07-12 13:38 | MHC.SLORD ---
Speech Language Pathology Order Status: Per RN, patient not appropriate to restart oral diet due to responsiveness, will continue on NGTF. RN advised Puree/NT consistencies recommended if diet is restarted over WE.
[2024-07-12] MEDS: Enoxaparin Sodium 40 MG/0.4 ML SYRINGE SUBCUT (16:15)
--- NOTE | 2024-07-12 18:19 | PC.NURSE ---
Assumed care at 0700. Pt in bilateral wrist restraints for patient and staff safety. Sitter in room for same. BPs noted to be increasing. aware. PRN labetalol ordered and administered. Per discussion with judicial law clerk and psych MD, plan is to start 2 hr ketamine infusion. MD Huerta updated. Update given to [facility] RN Sandra. After ketmine infusion, pt?s agitation increased. Pt occasionally followed instructions, but was throwing legs over siderails, pulling at restraints. Pt unable to answer questions. Pt tremulous. Ply Bander and MD Huerta aware. Pt exhibiting echolalia towards end of shift. See MAR for medication details. Pt repositioned q2hr; bed locked in lowest position.
[2024-07-12] MEDS: cloZAPine 25 MG TABLET PO (21:37)
[2024-07-12] MEDS: 0.9 % Sodium Chloride Flush 3 ML SYRINGE IVFLUSH (21:49)
[2024-07-13] VITALS (25 sets, daily range): BP systolic 120–166; BP diastolic 66–97; PULSE 69–107; RESP 14–27; TEMP 36.1–37.1; O2SAT 92–98; BMI 29.1
[2024-07-13] MEDS: Pantoprazole Sodium 40 MG/10 ML VIAL IVPUSH (04:55)
[2024-07-13] MEDS: OLANZapine 10 MG VIAL 5 MG IM ×2 (08:32→16:03)
[2024-07-13] MEDS: LORazepam 1 MG TABLET PO ×3 (08:32→19:39)
[2024-07-13] MEDS: 0.9 % Sodium Chloride Flush 3 ML SYRINGE IVFLUSH ×3 (08:32→20:45)
[2024-07-13] MEDS: Cyproheptadine HCl 4 MG TABLET PO ×3 (08:32→19:39)
[2024-07-13] MEDS: Memantine HCl 5 MG TABLET PO (08:32)
--- NOTE | 2024-07-13 11:07 | P.PNCC_ITS ---
Subjective Subjective Date of Service: 07/13/24 Interval History: Patient is significantly better this morning, talking in sentences asking need to sleep on his side more alert and oriented Critical Care Time (minutes): 35 Physical Exam 2 Vital Signs: Vital Signs: Last Vital Signs Temp 97.5 F 07/13/24 08:00 Pulse 83 07/13/24 10:00 Resp 18 07/13/24 10:00 BP 135/80 07/13/24 10:00 Pulse Ox 92 07/13/24 10:00 O2 Del Method Room Air 07/13/24 10:00 Oxygen Flow Rate 1 07/09/24 13:21 BMI result Body Mass Index 29.1 General: male lying in the bed more pleasant when compared to yesterday Nutritional Appearance: well nourished and overweight Eyes: appearance normal, both eyes and all related structures; Alignment and Position: alignment normal and position normal Neck: No lymphadenopathy, no thyromegaly Resp: bilateral air entry equal, occasional added sounds present Cardio: Regular rate, regular rhythm; Heart sounds: S1 normal heart sound present and S2 normal heart sound present GI: soft, nontender, no guarding, no hepatosplenomegaly : bladder normal to inspection, bladder normal to palpation, no renal angle tenderness Skin: no rashes or lesions noted and elasticity normal Neuro: oriented to person, oriented to place, oriented to time and moves all extremities Objective Data Labs 07/11/24 04:29 07/11/24 05:08 Progress Note: A&P Assessment and plan (1) Schizoaffective disorder, depressive type: Status: Acute (2) Schizoaffective disorder: Status: Acute (3) Catatonia: Status: Acute (4) Schizoaffective disorder: Status: Acute (5) Essential hypertension: Status: Acute Plan Acute encephalopathy: Secondary to significant schizoaffective disorder and catatonia Treated with ketamine drip 0.4 milligrams/kg per hour for 2 hours yesterday, mentation this morning has significantly improved. We will redo another dose tomorrow continue IM Zyprexa 5 mg b.i.d. continue oral clozapine, lorazepam and memantine custodial plans to be decided by pscyhiatry Passed swallow evaluation for puree-based liquids, but due to concerns for aspiration oral feeds with held. Patient has a NG tube we will continue with NG tube medications and continue tube feeds. we will closely monitor his respiratory status, no leukocytosis, chest x-ray clear Prophylaxis with pantoprazole and enoxaparin Dove catheter due to urinary retention Quality Stroke Does the patient have a stroke diagnosis?: No VTE Prior VTE?: No VTE Risk Level:: Medical - low VTE Device Contraindication: N/A - Device Ordered VTE Drug Contraindication: N/A - Med Ordered
[2024-07-13] MEDS: Ketamine HCl 500 MG in 0.9 % Sodium Chloride 250 ML 18.77 MG IVCONT (11:43)
[2024-07-13] MEDS: Enoxaparin Sodium 40 MG/0.4 ML SYRINGE SUBCUT (16:04)
[2024-07-13] MEDS: cloZAPine 25 MG TABLET PO (19:39)
[2024-07-14] VITALS (25 sets, daily range): BP systolic 116–167; BP diastolic 63–98; PULSE 77–105; RESP 13–29; TEMP 35.7–37.7; O2SAT 2–100; BMI 29.1
[2024-07-14] MEDS: LORazepam 2 MG/ML VIAL 1 MG IVPUSH (00:10)
[2024-07-14 05:50] LABS: Basophils Percent Auto 0.1 % (0-2); Hematocrit 37.9 % (42.0-52.0); Hemoglobin 12.5 g/dl (14.0-18.0); Imm Gran Abs Auto 0.05 X10*3/uL (0.00-0.03); Imm Gran Pct Auto 0.6 % (0.0-0.4); Lymphocytes Absolute Auto 1.4 X10*3/uL (1.2-4.9); Lymphocytes Percent Auto 16.1 % (20-40); MANUAL DIFF FLAG SCAN; Mean Corpuscular Hemoglobin 28.3 pg (27.0-33.0); Mean Corpuscular Volume 85.9 fL (80.0-98.0); Mean Platelet Volume 13.3 fL (9.4-12.4); Monocytes Absolute Auto 0.7 X10*3/uL (0.1-1.2); Monocytes Percent Auto 8.6 % (2-11); Neutrophils Absolute Auto 6.3 x10*3/uL (2.0-8.3); Neutrophils Percent Auto 74.6 % (45-73); PLT CLUMP 1; Red Blood Count 4.41 X10*6/uL (4.60-5.80); Red Cell Distribution Width 13.6 % (11.0-16.0); SCAN SMEAR FLAG 1
[2024-07-14 06:03] LABS: Alanine Aminotransferase 22 U/L (0-40); Albumin Level 3.7 g/dL (3.5-5.0); Anion Gap 16 (12-20); Aspartate Amino Transferase 23 U/L (5-37); Bilirubin Total 0.5 mg/dL (0.0-1.0); Blood Urea Nitrogen 15 mg/dL (9-16); Calcium 9.1 mg/dL (8.4-10.2); Carbon Dioxide 21 mmol/L (22-29); Chloride 109 mmol/L (96-108); Creatinine Clr Calc Pharmacy 76.2; Estimated Glomerular Filt Rate > 60; Glucose Random 102 mg/dL (60-115); Potassium 3.9 mmol/L (3.3-5.1); Sodium 142 mmol/L (135-145); Total Protein 6.7 g/dL (6.5-8.0)
[2024-07-14 06:05] LABS: Platelet Count 133 X10*3/uL (160-400); White Blood Count 8.4 X10*3/uL (4.8-10.8)
[2024-07-14 06:06] LABS: SLIDE REVIEW VERIFIED
[2024-07-14 06:08] LABS: Alkaline Phosphatase 55 U/L (39-117)
--- NOTE | 2024-07-14 06:26 | PC.NURSE ---
Upon initial assessment at 2000- pt A&Ox3, vague to situation, calm/cooperative, MURRAY, following commands and making needs known. Non behavioral restraints removed. Call contreras given to pt and using appropriately. Pt with loose/rattling cough, LS rhonchorous throughout, encouraged to TCDB and able to spontaneously expectorate secretions and self suction with yankauer. At approx 2330- pt with difficulty mobilizing secretions requiring nasopharyngeal suctioning with ?tube feed appearing secretions- ALEC Richard notified and TF held. At approx 0000- pt becoming agitated/demanding/threatening, hallucinating and attempting to get OOB. Pt difficult to redirect- PRN Ativan 1 mg IVP given x1 per MAY with some effect. Throughout night, pt desaturating to 70-80s with sleep apnea pattern and snoring respirations- 2L NC applied to maintain SpO2 > 92% while asleep. Bed locked in lowest position, alarm on, call contreras in reach. See EMR/flowsheet for further details.
[2024-07-14] MEDS: OLANZapine 10 MG VIAL 5 MG IM ×2 (07:58→16:13)
[2024-07-14] MEDS: 0.9 % Sodium Chloride Flush 3 ML SYRINGE IVFLUSH ×2 (07:59→16:13)
[2024-07-14] MEDS: Memantine HCl 5 MG TABLET PO (08:00)
[2024-07-14] MEDS: Cyproheptadine HCl 4 MG TABLET PO ×3 (08:00→19:21)
[2024-07-14] MEDS: LORazepam 1 MG TABLET PO ×3 (08:00→19:21)
[2024-07-14] MEDS: Lactated Ringers 1,000 ML 999 ML IV (10:27)
--- NOTE | 2024-07-14 11:07 | MHC.SLORD ---
Speech Language Pathology Order Status: Per RN, pt not yet appropriate for GEAR GENERATOR SET UP OPERATOR swallow eval. GEAR GENERATOR SET UP OPERATOR to check in to re-assess tmw 07/15 when/if appropriate.
--- NOTE | 2024-07-14 11:10 | P.PNCC_ITS ---
Subjective Subjective Date of Service: 07/14/24 Interval History: Drowsy this morning, not following any commands Tube feeding stopped yesterday due to risk for aspiration Critical Care Time (minutes): 35 Physical Exam 2 Vital Signs: Vital Signs: Last Vital Signs Temp 97.5 F 07/14/24 08:00 Pulse 85 07/14/24 11:00 Resp 16 07/14/24 11:00 BP 119/66 07/14/24 11:00 Pulse Ox 100 07/14/24 11:00 O2 Del Method Nasal Cannula 07/14/24 11:00 O2 Flow Rate 2 07/14/24 11:00 Oxygen Flow Rate 1 07/09/24 13:21 BMI result Body Mass Index 29.1 General: male poorly responsive, lying in the bed Nutritional Appearance: well nourished and overweight Eyes: appearance normal, both eyes and all related structures; Alignment and Position: alignment normal and position normal Neck: No lymphadenopathy, no thyromegaly Resp: bilateral air entry equal, occasional added sounds present Cardio: Regular rate, regular rhythm; Heart sounds: S1 normal heart sound present and S2 normal heart sound present GI: soft, nontender, no guarding, no hepatosplenomegaly : bladder normal to inspection, bladder normal to palpation, no renal angle tenderness Skin: no rashes or lesions noted and elasticity normal Neuro: Drowsy, disoriented, moves all extremities Objective Data Labs 07/14/24 05:02 07/14/24 05:02 Labs: Laboratory Results - last 24 hr 07/14/24 05:02 WBC 8.4 RBC 4.41 L Hgb 12.5 L Hct 37.9 L MCV 85.9 MCH 28.3 MCHC 33.0 RDW 13.6 Plt Count 133 L D MPV 13.3 H Immature Gran % (Auto) 0.6 H Neut % (Auto) 74.6 H Lymph % (Auto) 16.1 L [place] % (Auto) 8.6 Eos % (Auto) 0.0 Baso % (Auto) 0.1 Lymph # (Auto) 1.4 [place] # (Auto) 0.7 Eos # (Auto) 0.0 Baso # (Auto) 0.0 Abs Immat Gran (auto) 0.05 H Absolute Neuts (auto) 6.3 Absolute Nucleated RBC 0.000 Nucleated RBC % (auto) 0.0 Smear Tech's Comments VERIFIED Sodium 142 Potassium 3.9 Chloride 109 H Carbon Dioxide 21 L Anion Gap 16 BUN 15 Creatinine 1.16 Estim Creat Clear Calc 76.2 Estimated GFR > 60 Random Glucose 102 Calcium 9.1 D Phosphorus 4.0 Magnesium 2.0 Total Bilirubin 0.5 AST 23 ALT 22 Alkaline Phosphatase 55 Total Protein 6.7 Albumin 3.7 Progress Note: A&P Assessment and plan (1) Schizoaffective disorder, depressive type: Status: Acute (2) Schizoaffective disorder: Status: Acute (3) Catatonia: Status: Acute (4) Schizoaffective disorder: Status: Acute (5) Essential hypertension: Status: Acute (6) Benign prostate hyperplasia: Status: Acute Plan Acute encephalopathy: Secondary to significant schizoaffective disorder and catatonia Treated with ketamine drip 0.4 milligrams/kg per hour for 2 hours for past 2 days; we will do the 3rd dose today. Patient did not have any significant affect after the 2nd dose, he remains drowsy, possibly aspirated on tube feeds overnight. We will stop after today's dose. continue IM Zyprexa 5 mg b.i.d. continue oral clozapine, lorazepam and memantine [facility] plans to be decided by pscyhiatry Passed swallow evaluation for puree-based liquids, but due to concerns for aspiration oral feeds with held. Patient has a NG tube we will continue with NG tube medications and continue tube feeds. we will closely monitor his respiratory status, no leukocytosis, chest x-ray clear Prophylaxis with pantoprazole and enoxaparin Dove catheter due to urinary retention, home tamsulosin restarted Quality Stroke Does the patient have a stroke diagnosis?: No VTE Prior VTE?: No VTE Risk Level:: Medical - low VTE Device Contraindication: N/A - Device Ordered VTE Drug Contraindication: N/A - Med Ordered
[2024-07-14] MEDS: Ketamine HCl 500 MG in 0.9 % Sodium Chloride 250 ML 18.77 MG IVCONT (13:55)
[2024-07-14] MEDS: Enoxaparin Sodium 40 MG/0.4 ML SYRINGE SUBCUT (15:35)
[2024-07-14] MEDS: cloZAPine 25 MG TABLET PO (19:21)
[2024-07-15] VITALS (24 sets, daily range): BP systolic 120–165; BP diastolic 65–97; PULSE 73–109; RESP 12–27; TEMP 36.1–37.7; O2SAT 2–100; BMI 28.0
[2024-07-15] MEDS: OLANZapine 10 MG VIAL 5 MG IM ×3 (02:28→16:39)
--- NOTE | 2024-07-15 05:22 | PC.NURSE ---
Assumed care at 1900. Patient alert only to name, unable to consistently respond to questions?or commands. Intermittently yelling for help, but?unable to vocalize needs. Moves all extremities, occasionally tracks speaker. Intermittent periods of lethargy/agitation, occasionally combative with staff. SR/ST on tele, HR 80s-100s. Generalized non-pitting?edema to forearms and ankles. Lung sounds coarse and rhonchorous, with weak cough and frequent suctioning needed. 2L NC for O2 support. Patient repeatedly boosted up in bed to prevent?aspiration, with HOB 45 degrees. Patient consistently slides down in bed. ALEC Richard notified, TF stopped due to risk of aspiration. NGT in place and secured. Au catheter in place for urinary retention. At approx 0200, patient became agitated and despite multiple attempts at redirection and tele sitter, patient ripped au catheter out. ALEC Richard aware, IM zyprexa given per MAY with marginal effect. Skin largely warm dry and intact, small scratches to bilateral thighs from patient's nails and blanchable redness to bilateral buttocks. Repositioned as tolerated, bed alarm on, [employer] camera in place.
[2024-07-15] MEDS: LORazepam 1 MG TABLET PO (08:17)
[2024-07-15] MEDS: Memantine HCl 5 MG TABLET PO (08:17)
[2024-07-15] MEDS: Cyproheptadine HCl 4 MG TABLET PO ×3 (08:18→20:09)
[2024-07-15] MEDS: 0.9 % Sodium Chloride Flush 3 ML SYRINGE IVFLUSH ×3 (08:18→20:09)
--- NOTE | 2024-07-15 09:38 | MHC.CLN ---
F/U TF ON HOLD SINCE YESTERDAY 07/14 R/T SUSPECT ASPIRATION IF TF TO RE-START; RECOMMEND JEVITY 1.0 AT MAX GOAL RATE 90ML/HR WITH 240 Q 8 HRS TO PROVIDE 2289KCALS (28KCALS/KG), 95G PROTEIN (1.2G/KG), 2524ML TOTAL WATER FROM FORMULA AND FLUSHES (31ML/KG) MONITOR TOLERANCE AND LYTES CONSULT RD IF ALTERNATIVE NUTRITION NEEDED FOLLOWING WITH TEAM
--- NOTE | 2024-07-15 09:40 | P.PNCC_ITS ---
Subjective Subjective Date of Service: 07/15/24 Interval History: 59-year-old gentleman with underlying history of schizoaffective disorder admitted to psychiatry on 06/21/2024 secondary to worsening psychiatric symptoms for which he was started on ECT with likely post ECT pulmonary aspiration, also with mental state alternating between catatonia and significant agitation requiring ketamine drip. No events overnight. Critical Care Time (minutes): 0 Physical Exam 2 Vital Signs: Vital Signs: Last Vital Signs Temp 99.1 F 07/15/24 09:00 Pulse 73 07/15/24 09:00 Resp 18 07/15/24 09:00 BP 120/70 07/15/24 09:00 Pulse Ox 100 07/15/24 09:00 O2 Del Method Room Air 07/15/24 09:00 O2 Flow Rate 2 07/15/24 07:59 Oxygen Flow Rate 1 07/09/24 13:21 BMI result Body Mass Index 28.0 Const: General: no acute distress and lethargic (Arousable, does not follow commands) Orientation/consciousness: lethargic (Arousable, does not follow commands) Eyes: Sclerae: sclerae normal EOM: EOMs intact bilaterally Neck: Neck: Yes no lymphadenopathy, Yes trachea midline and Yes supple Resp: Effort & Inspection: normal respiratory effort and no respiratory distress Auscultation: clear to auscultation bilaterally Cardio: Rate: regular rate Rhythm: regular rhythm Heart sounds: no gallops, no murmurs and no rubs GI: Palpation (GI): Soft to palpation and Other GI palpation findings present ( Nontender) Auscultation: normal bowel sounds Extrem: General: Yes no pedal edema, No clubbing and No cyanosis Objective Data Labs 07/14/24 05:02 07/14/24 05:02 Progress Note: A&P Assessment and plan (1) Schizoaffective disorder: Status: Acute Plan Assessment: 59-year-old gentleman with underlying schizoaffective disorder admitted with psychiatric decompensation requiring ECT with hospital course further complicated by pulmonary aspiration, mixed catatonia/agitation requiring ketamine, now monitored in the intensive care unit. Plan: Neuro: No acute issues. Cardiac: No acute issues. Pulmonary: Post ECT pulmonary aspiration, now resolved. Continue to monitor respiratory status. Renal: No acute issues. Endo: No acute issues. GI: No acute issues. ID: No acute issues Heme/Onc: No acute issues. Psych: Decompensated schizoaffective disorder requiring ECT, with mixed catatonia/agitation, now status post 3 doses of ketamine. Psychiatry service care appreciated. Continue baseline regimen of Clozaril, Periactin, and Zyprexa. Miscellaneous: No acute issues. Prophylaxis: Lovenox Diet: Pending swallow evaluation Quality Stroke Does the patient have a stroke diagnosis?: No VTE Prior VTE?: No VTE Risk Level:: Medical - low VTE Device Contraindication: N/A - Device Ordered VTE Drug Contraindication: N/A - Med Ordered
[2024-07-15 10:32] LABS: MANUAL DIFF FLAG NO
[2024-07-15 10:38] LABS: Basophils Percent Auto 0.1 % (0-2); Hemoglobin 11.9 g/dl (14.0-18.0); Imm Gran Abs Auto 0.05 X10*3/uL (0.00-0.03); Imm Gran Pct Auto 0.7 % (0.0-0.4); Lymphocytes Absolute Auto 1.1 X10*3/uL (1.2-4.9); Lymphocytes Percent Auto 14.4 % (20-40); Mean Corpuscular HGB Conc 32.2 g/dl (31.0-36.0); Mean Corpuscular Hemoglobin 28.1 pg (27.0-33.0); Mean Corpuscular Volume 87.5 fL (80.0-98.0); Mean Platelet Volume 11.6 fL (9.4-12.4); Monocytes Absolute Auto 0.6 X10*3/uL (0.1-1.2); Monocytes Percent Auto 7.7 % (2-11); Neutrophils Absolute Auto 5.8 x10*3/uL (2.0-8.3); Neutrophils Percent Auto 77.1 % (45-73); Platelet Count 192 X10*3/uL (160-400); Red Blood Count 4.23 X10*6/uL (4.60-5.80); Red Cell Distribution Width 13.4 % (11.0-16.0); White Blood Count 7.5 X10*3/uL (4.8-10.8)
[2024-07-15 11:03] LABS: Albumin Level 3.8 g/dL (3.5-5.0); Anion Gap 13 (12-20); Blood Urea Nitrogen 15 mg/dL (9-16); Calcium 9.5 mg/dL (8.4-10.2); Carbon Dioxide 28 mmol/L (22-29); Chloride 106 mmol/L (96-108); Creatinine Clr Calc Pharmacy 70.6; Estimated Glomerular Filt Rate 60; Glucose Random 87 mg/dL (60-115); Phosphorus 4.4 mg/dL (2.7-4.5); Potassium 4.2 mmol/L (3.3-5.1); Sodium 143 mmol/L (135-145)
--- NOTE | 2024-07-15 13:43 | MHC.SLORD ---
Speech Language Pathology Order Status: MD and RN consulted, pt not awake/alert enough to be re-evaluated. Pt has NGT for nutrition but remains at risk for aspiration. GEOTHERMAL INSTALLER following as indicated to assess swallow function, prognosis for safe resumption of PO cannot be adequately determined at this time.
[2024-07-15] MEDS: Enoxaparin Sodium 40 MG/0.4 ML SYRINGE SUBCUT (14:17)
--- NOTE | 2024-07-15 17:55 | PC.NURSE ---
Assumed care at 0700- pt. minimally verbal, mumbling and repeating staff. Tracks occasionally, MURRAY, does not follow commands. Pt. intermittently agitated/resistive to care. B/L wrist restraints remains in place with MD order. Pt. SR on tele, HR 80s-100s. Weaned to RA, 02 sat >92%. Pt. with loose moist cough, orally suctioned by this RN. NGT to R nare reamins in place- TF on hold per MD. Dove remains in place draining pick/punch colored urine- MD aware. Lovenox administered per MD. Pt. bathed, repositioned and oral care provided Q2. Plan of care ongoing.
[2024-07-15] MEDS: Ketamine HCl 500 MG in 0.9 % Sodium Chloride 250 ML 18.77 MG IVCONT (20:08)
[2024-07-15] MEDS: cloZAPine 25 MG TABLET PO (20:09)
[2024-07-16] VITALS (27 sets, daily range): BP systolic 114–178; BP diastolic 64–101; PULSE 18–112; RESP 13–101; TEMP 37.3–37.5; O2SAT 92–100; BMI 28.2
[2024-07-16] MEDS: OLANZapine 10 MG VIAL 5 MG IM ×3 (01:38→17:01)
[2024-07-16 05:40] LABS: VBG Base Excess -2.3 mmol/L; VBG HCO3 21 mmol/L (22-26); VBG pCO2 32 mmHg; VBG pH 7.42 (7.32-7.43); VBG pO2 49 mmHg
[2024-07-16 06:02] LABS: Basophils Percent Auto 0.1 % (0-2); Eosinophils Percent Auto 0.1 % (0-4); Hemoglobin 12.7 g/dl (14.0-18.0); Imm Gran Abs Auto 0.07 X10*3/uL (0.00-0.03); Imm Gran Pct Auto 0.7 % (0.0-0.4); Lymphocytes Absolute Auto 1.3 X10*3/uL (1.2-4.9); Lymphocytes Percent Auto 13.1 % (20-40); MANUAL DIFF FLAG SCAN; Mean Corpuscular HGB Conc 32.6 g/dl (31.0-36.0); Mean Corpuscular Hemoglobin 28.2 pg (27.0-33.0); Mean Corpuscular Volume 86.7 fL (80.0-98.0); Mean Platelet Volume 12.9 fL (9.4-12.4); Monocytes Absolute Auto 0.6 X10*3/uL (0.1-1.2); Monocytes Percent Auto 6.4 % (2-11); Neutrophils Absolute Auto 7.7 x10*3/uL (2.0-8.3); Neutrophils Percent Auto 79.6 % (45-73); PLT CLUMP 1; Red Cell Distribution Width 13.2 % (11.0-16.0); SCAN SMEAR FLAG 1
[2024-07-16 06:03] LABS: White Blood Count 9.7 X10*3/uL (4.8-10.8)
[2024-07-16 06:21] LABS: Platelet Count 243 X10*3/uL (160-400); SLIDE REVIEW VERIFIED
--- NOTE | 2024-07-16 06:24 | PC.NURSE ---
Assumed care at 1900. Patient continues to have waxing and waning mentation. Upon assessment, only alert to self and occasionally able to state first name when asked. Does not consistently follow commands, track, or answer questions. Occasionally repeats phrases and questions back to speaker. Moves all extremities spontaneously, with periods of agitation. Additional one time dose?zyprexa administered per MAR with good effect. SR/ST on tele, HR 80s-100s. Non pitting edema to bilateral forearms and hands. Lung sounds rhonchorous, with weak cough and gag. Unable to consistently clear secretions, HOB >30 degrees and frequent oral care and suctioning provided. NGT to right nare in place and patent, clamped. Dove catheter remains in place, draining altagracia urine with occasional small blood clots. Skin warm dry and intact, blanchable redness to buttocks and small scratches to bilateral thighs. Repositioned as tolerated, bed alarm on, avPopUpsterss camera in place for safety.?
[2024-07-16 06:46] LABS: Alanine Aminotransferase 16 U/L (0-40); Albumin Level 3.8 g/dL (3.5-5.0); Anion Gap 22 (12-20); Aspartate Amino Transferase 23 U/L (5-37); Bilirubin Total 0.6 mg/dL (0.0-1.0); Blood Urea Nitrogen 24 mg/dL (9-16); Calcium 9.6 mg/dL (8.4-10.2); Carbon Dioxide 17 mmol/L (22-29); Chloride 107 mmol/L (96-108); Creatinine Clr Calc Pharmacy 67.5; Estimated Glomerular Filt Rate 57; Glucose Random 74 mg/dL (60-115); Magnesium 1.9 mg/dL (1.6-2.6); Phosphorus 3.9 mg/dL (2.7-4.5); Potassium 4.4 mmol/L (3.3-5.1); Sodium 142 mmol/L (135-145)
[2024-07-16 07:41] LABS: Alkaline Phosphatase 61 U/L (39-117)
[2024-07-16 08:10] LABS: Venous Blood Gas Refer to POC result
[2024-07-16] MEDS: 0.9 % Sodium Chloride Flush 3 ML SYRINGE IVFLUSH ×2 (08:56→17:01)
[2024-07-16] MEDS: Memantine HCl 5 MG TABLET PO (09:23)
[2024-07-16] MEDS: Cyproheptadine HCl 4 MG TABLET PO ×3 (09:23→20:21)
--- NOTE | 2024-07-16 09:41 | PM.CCPN ---
Subjective Subjective Date of Service: 07/16/24 Interval History: 59-year-old gentleman with underlying history of schizoaffective disorder admitted to psychiatry on 06/21/2024 secondary to worsening psychiatric symptoms for which he was started on ECT with likely post ECT pulmonary aspiration, also with mental state alternating between catatonia and significant agitation requiring ketamine drip. Intermittent agitation overnight, with good response to additional antipsychotics. Critical Care Time (minutes): 0 Physical Exam Vital Signs: Vital Signs: Last Vital Signs Temp 99.5 F 07/16/24 08:00 Pulse 18 L 07/16/24 09:00 Resp 101 H 07/16/24 09:00 BP 126/64 07/16/24 09:00 Pulse Ox 96 07/16/24 09:00 O2 Del Method Room Air 07/16/24 09:00 O2 Flow Rate 99 07/15/24 22:00 Oxygen Flow Rate 1 07/09/24 13:21 BMI result Body Mass Index 28.2 Const: General: no acute distress, alert and awake Eyes: Sclerae: sclerae normal EOM: EOMs intact bilaterally Neck: Neck: Yes no lymphadenopathy, Yes trachea midline and Yes supple Resp: Effort & Inspection: normal respiratory effort and no respiratory distress Auscultation: clear to auscultation bilaterally Cardio: Rate: tachycardic Rhythm: regular rhythm Heart sounds: no gallops, no murmurs and no rubs GI: Palpation (GI): Soft to palpation and Other GI palpation findings present ( Nontender) Auscultation: normal bowel sounds Extrem: General: Yes no pedal edema, No clubbing and No cyanosis Objective Data Labs 07/16/24 05:36 07/16/24 05:36 Labs: Laboratory Results - last 24 hr 07/15/24 07/15/24 07/16/24 10:25 10:28 05:36 WBC 7.5 9.7 RBC 4.23 L 4.50 L Hgb 11.9 L 12.7 L Hct 37.0 L 39.0 L MCV 87.5 86.7 MCH 28.1 28.2 MCHC 32.2 32.6 RDW 13.4 13.2 Plt Count 192 D 243 D MPV 11.6 12.9 H Immature Gran % (Auto) 0.7 H 0.7 H Neut % (Auto) 77.1 H 79.6 H Lymph % (Auto) 14.4 L 13.1 L [place] % (Auto) 7.7 6.4 Eos % (Auto) 0.0 0.1 Baso % (Auto) 0.1 0.1 Lymph # (Auto) 1.1 L 1.3 [place] # (Auto) 0.6 0.6 Eos # (Auto) 0.0 0.0 Baso # (Auto) 0.0 0.0 Abs Immat Gran (auto) 0.05 H 0.07 H Absolute Neuts (auto) 5.8 7.7 Absolute Nucleated RBC 0.000 0.000 Nucleated RBC % (auto) 0.0 0.0 Smear Tech's Comments VERIFIED VBG pH VBG pCO2 VBG pO2 VBG HCO3 VBG O2 Saturation VBG Base Excess Sodium 143 142 Potassium 4.2 4.4 Chloride 106 107 Carbon Dioxide 28 17 L Anion Gap 13 22 H BUN 15 24 H Creatinine 1.23 1.29 Estim Creat Clear Calc 70.6 67.5 Estimated GFR 60 57 Random Glucose 87 74 Calcium 9.5 9.6 Phosphorus 4.4 3.9 Magnesium 2.0 1.9 Total Bilirubin 0.6 AST 23 ALT 16 Alkaline Phosphatase 61 Total Protein 7.0 Albumin 3.8 3.8 Hold Red Top See Note 07/16/24 05:37 WBC RBC Hgb Hct MCV MCH MCHC RDW Plt Count MPV Immature Gran % (Auto) Neut % (Auto) Lymph % (Auto) [place] % (Auto) Eos % (Auto) Baso % (Auto) Lymph # (Auto) [place] # (Auto) Eos # (Auto) Baso # (Auto) Abs Immat Gran (auto) Absolute Neuts (auto) Absolute Nucleated RBC Nucleated RBC % (auto) Smear Tech's Comments VBG pH 7.42 VBG pCO2 32 VBG pO2 49 VBG HCO3 21 L VBG O2 Saturation 76.0 VBG Base Excess -2.3 Sodium Potassium Chloride Carbon Dioxide Anion Gap BUN Creatinine Estim Creat Clear Calc Estimated GFR Random Glucose Calcium Phosphorus Magnesium Total Bilirubin AST ALT Alkaline Phosphatase Total Protein Albumin Hold Red Top Progress Note: A&P Assessment and plan (1) Schizoaffective disorder: Status: Acute Plan Assessment: 59-year-old gentleman with underlying schizoaffective disorder admitted with psychiatric decompensation requiring ECT with hospital course further complicated by pulmonary aspiration, mixed catatonia/agitation requiring ketamine, now monitored in the intensive care unit. Plan: Neuro: No acute issues. Cardiac: No acute issues. Pulmonary: Post ECT pulmonary aspiration, now resolved. Continue to monitor respiratory status. Renal: No acute issues. Endo: No acute issues. GI: No acute issues. ID: No acute issues Heme/Onc: No acute issues. Psych: Decompensated schizoaffective disorder requiring ECT, with mixed catatonia/agitation, now status post doses of ketamine. Psychiatry service care appreciated. Continue baseline regimen of Clozaril, Periactin, and Zyprexa. Miscellaneous: No acute issues. Prophylaxis: Lovenox Diet: Pending swallow evaluation Quality Stroke Does the patient have a stroke diagnosis?: No VTE Prior VTE?: No VTE Risk Level:: Medical - low VTE Device Contraindication: N/A - Device Ordered VTE Drug Contraindication: N/A - Med Ordered
--- NOTE | 2024-07-16 10:35 | MHC.SLORD ---
Speech Language Pathology Order Status: PROFESSOR OF FORESTRY attempted to see pt for re-evaluation of swallow. Per RN, pt mentation improved and restraints removed. Pt opened eyes for PROFESSOR OF FORESTRY, began to shut eyes, when PROFESSOR OF FORESTRY called pt's name pt opened eyes, swung at, and grabbed PROFESSOR OF FORESTRY.
--- NOTE | 2024-07-16 11:06 | MHC.CLN ---
F/U TF ON HOLD SINCE 07/14 R/T SUSPECT ASPIRATION TWISTER TENDER PAPER UNABLE TO EVAL FOR SWALLOW R/T PT'S BEHAVIORS DAY [address] IF PPN NEEDED FOLLOWING FOR DIET ADVANCEMENT
--- NOTE | 2024-07-16 15:16 | MHC.CM.PN ---
Pt remains in ICU: Ketamine d/c'd - psych following for med adjustments and possible ECT. Pt will return to INPT PSYCH once stable.
--- NOTE | 2024-07-16 16:10 | PM.PSYCN ---
History of Present Illness Date of Service: 07/16/2024 Chief Complaint: catatonia Reason for Consult: f/u catatonia Requesting physician: Donald Trejo Discussed with referring provider: Yes Sources of Information: patient interviewed (pt seen) and chart reviewed Additional Sources of Information: spoke with icu nursing and dr trejo HPI Narrative: The patient is a 59-year-old male seen in follow-up in the ICU case reviewed with nursing staff and . Patient was originally transferred to the ICU secondary to inability to maintain oxygenation to take in food and was unable to be maintain on this geriatric psychiatry unit. The patient had not responded to lorazepam and was not deemed stable for ECT at that time Patient has an NG-tube unable to maintain swallowing without aspiration this time discussed with Dr. Trejo of trial of ketamine infusion 0.5 milligrams/kilogram to see if any improvement. There was an initial trial of lower dose ketamine over a much longer period of time. Multiple calls have been placed to the patient's hcp Past Psychiatric History: Inpatient: multiple in the past. h/o ECT for catatonia. OP: [facility] Past medication trials: clozaril, ativan, sertraline, olanzapine. [facility] Medical History Hospital discharge follow-up Mild sleep apnea Tardive dyskinesia Nocturnal hypoxia Routine medical exam Joint inflammation of right hand and wrist Status post fall Adult general medical exam Screening for colon cancer Screening for prostate cancer Cough BPH (benign prostatic hyperplasia) Surgical History History of colonoscopy (~06/15/21) History of tooth extraction History of root canal procedure Family History: unknown Social History: lives independently, works, drives. apartment in [place]. Trauma History: unknown Diagnostics Vital Signs (24Hr): Vital Signs - 24 hr 07/15/24 17:00 07/15/24 17:56 07/15/24 19:00 Temperature 99.7 F Pulse Rate 94 90 106 H Respiratory Rate 21 H 19 15 Blood Pressure 142/82 H 123/67 160/84 H Pulse Oximetry 100 90 L 98 Oxygen Delivery Method Nasal Cannula Room Air Room Air Oxygen Flow Rate 2 07/15/24 20:00 07/15/24 20:00 07/15/24 21:00 Temperature 99.9 F 99.9 F Pulse Rate 85 92 90 Respiratory Rate 17 20 12 Blood Pressure 131/74 131/74 121/94 H Pulse Oximetry 95 96 100 Oxygen Delivery Method Room Air Room Air Room Air Oxygen Flow Rate 07/15/24 22:00 07/15/24 23:00 07/16/24 00:00 Temperature 99.1 F 99.1 F Pulse Rate 90 85 101 H Respiratory Rate 16 15 23 H Blood Pressure 144/76 H 122/80 156/78 H Pulse Oximetry 97 98 Oxygen Delivery Method Room Air Room Air Room Air Oxygen Flow Rate 99 07/16/24 01:00 07/16/24 02:00 07/16/24 02:10 Temperature Pulse Rate 109 H 107 H Respiratory Rate 29 H 24 H Blood Pressure 152/77 H 133/74 Pulse Oximetry 98 99 Oxygen Delivery Method Room Air Room Air Room Air Oxygen Flow Rate 07/16/24 03:00 07/16/24 04:00 07/16/24 05:00 Temperature 99.1 F Pulse Rate 84 92 94 Respiratory Rate 19 13 17 Blood Pressure 129/67 149/69 H 157/72 H Pulse Oximetry 96 100 98 Oxygen Delivery Method Room Air Room Air Room Air Oxygen Flow Rate 07/16/24 06:00 07/16/24 07:00 07/16/24 08:00 Temperature 99.5 F 99.5 F Pulse Rate 80 92 83 Respiratory Rate 17 21 H 19 Blood Pressure 135/68 125/71 114/69 Pulse Oximetry 97 97 97 Oxygen Delivery Method Room Air Room Air Room Air Oxygen Flow Rate 07/16/24 09:00 07/16/24 10:00 07/16/24 11:00 Temperature Pulse Rate 18 L 103 H 112 H Respiratory Rate 101 H 24 H 18 Blood Pressure 126/64 127/89 175/79 H Pulse Oximetry 96 93 96 Oxygen Delivery Method Room Air Room Air Room Air Oxygen Flow Rate 07/16/24 12:00 07/16/24 13:00 07/16/24 14:21 Temperature Pulse Rate 106 H 84 105 H Respiratory Rate 24 H 18 25 H Blood Pressure 177/93 H 136/70 143/95 H Pulse Oximetry 96 96 96 Oxygen Delivery Method Room Air Room Air Room Air Oxygen Flow Rate 07/16/24 14:54 Temperature Pulse Rate 110 H Respiratory Rate 23 H Blood Pressure 134/101 H Pulse Oximetry 95 Oxygen Delivery Method Room Air Oxygen Flow Rate BMI result Body Mass Index 28.2 Labs 07/16/24 05:36 07/16/24 05:36 Labs: Laboratory Results - last 48 hr 07/15/24 07/15/24 07/16/24 10:25 10:28 05:36 WBC 7.5 9.7 RBC 4.23 L 4.50 L Hgb 11.9 L 12.7 L Hct 37.0 L 39.0 L MCV 87.5 86.7 MCH 28.1 28.2 MCHC 32.2 32.6 RDW 13.4 13.2 Plt Count 192 D 243 D MPV 11.6 12.9 H Immature Gran % (Auto) 0.7 H 0.7 H Neut % (Auto) 77.1 H 79.6 H Lymph % (Auto) 14.4 L 13.1 L [place] % (Auto) 7.7 6.4 Eos % (Auto) 0.0 0.1 Baso % (Auto) 0.1 0.1 Lymph # (Auto) 1.1 L 1.3 [place] # (Auto) 0.6 0.6 Eos # (Auto) 0.0 0.0 Baso # (Auto) 0.0 0.0 Abs Immat Gran (auto) 0.05 H 0.07 H Absolute Neuts (auto) 5.8 7.7 Absolute Nucleated RBC 0.000 0.000 Nucleated RBC % (auto) 0.0 0.0 Smear Tech's Comments VERIFIED VBG pH VBG pCO2 VBG pO2 VBG HCO3 VBG O2 Saturation VBG Base Excess Sodium 143 142 Potassium 4.2 4.4 Chloride 106 107 Carbon Dioxide 28 17 L Anion Gap 13 22 H BUN 15 24 H Creatinine 1.23 1.29 Estim Creat Clear Calc 70.6 67.5 Estimated GFR 60 57 Random Glucose 87 74 Calcium 9.5 9.6 Phosphorus 4.4 3.9 Magnesium 2.0 1.9 Total Bilirubin 0.6 AST 23 ALT 16 Alkaline Phosphatase 61 Total Protein 7.0 Albumin 3.8 3.8 Hold Red Top See Note 07/16/24 05:37 WBC RBC Hgb Hct MCV MCH MCHC RDW Plt Count MPV Immature Gran % (Auto) Neut % (Auto) Lymph % (Auto) [place] % (Auto) Eos % (Auto) Baso % (Auto) Lymph # (Auto) [place] # (Auto) Eos # (Auto) Baso # (Auto) Abs Immat Gran (auto) Absolute Neuts (auto) Absolute Nucleated RBC Nucleated RBC % (auto) Smear Tech's Comments VBG pH 7.42 VBG pCO2 32 VBG pO2 49 VBG HCO3 21 L VBG O2 Saturation 76.0 VBG Base Excess -2.3 Sodium Potassium Chloride Carbon Dioxide Anion Gap BUN Creatinine Estim Creat Clear Calc Estimated GFR Random Glucose Calcium Phosphorus Magnesium Total Bilirubin AST ALT Alkaline Phosphatase Total Protein Albumin Hold Red Top Imaging Radiology Impressions: ITS Impressions Chest X-Ray 07/11/24 11:00 IMPRESSION: Nasogastric tube unchanged in position. No acute cardiopulmonary abnormality. Electronically signed by: Jacob Hope MD 07/11/2024 11:27 AM EDT RP Mental Status Exam Mental Status Exam Narrative: Patient seen in the ICU nonverbal. He has an NG-tube he does seem alert when his name is called. Somewhat diaphoretic involuntary right hand and mouth movements noted Medications Medications Current Medications Clozapine (Clozapine 25 Mg Tablet) 25 mg PO BEDTIME ON LICENSE OF [facility] Last Admin: 07/15/24 20:09 Dose: 25 mg Cyproheptadine HCl (Cyproheptadine Hcl 4 Mg Tablet) 4 mg PO TID ON LICENSE OF [facility] Last Admin: 07/16/24 09:23 Dose: 4 mg Enoxaparin Sodium (Enoxaparin Sodium 40 Mg/0.4 Ml Syringe) 40 mg SUBCUT Q24H ON LICENSE OF [facility] Last Admin: 07/15/24 14:17 Dose: 40 mg Labetalol HCl (Labetalol Hcl 100 Mg/20 Ml Vial) 10 mg IVPUSH Q10M PRN PRN Reason: SBP > 160 Last Admin: 07/12/24 09:34 Dose: 10 mg Memantine (Memantine Hcl 5 Mg Tablet) 5 mg PO DAILY ON LICENSE OF [facility] Last Admin: 07/16/24 09:23 Dose: 5 mg Olanzapine (Olanzapine 10 Mg Vial) 5 mg IM BIDWM ON LICENSE OF [facility] Last Admin: 07/16/24 08:56 Dose: 5 mg Sodium Chloride (0.9 % Sodium Chloride Flush 3 Ml Syringe) 3 ml IVFLUSH QSHIFT ON LICENSE OF [facility] Last Admin: 07/16/24 08:56 Dose: 3 ml Tamsulosin HCl (Tamsulosin Hcl 0.4 Mg Capsule) 0.4 mg PO BEDTIME KRISTIN Last Admin: 07/15/24 20:09 Dose: Not Given Allergies Allergies Allergy/AdvReac Type Severity Reaction Status Date / Time No Known Allergies [NKA] Allergy Unknown NONE Verified 06/19/24 20:43 Assessment & Plan Assessment & Plan (1) Schizoaffective disorder, depressive type: Status: Acute Code(s): F25.1 - Schizoaffective disorder, depressive type (2) Catatonia: Status: Acute Code(s): F06.1 - Catatonic disorder due to known physiological condition Plan Patient seen chart reviewed patient remains withdrawn nonverbal in catatonic like state which has been previously. Encouraged to avoid ECT presently because of anesthesia concerned. Will try ketamine infusion which has been used off-label but there are number of documented papers regarding this treatment. Had been reviewed previously with anesthesia and with ICU. Will re-evaluate after treatment Did not appear to respond to benzodiazepine trials became more sedated instead of more alert. Can reconsider in ICU setting on low-dose clozapine Namenda off-label for catatonia Respiratory treatment intravenous fluids hypertensive control and G-tube replacement per ICU attending follow-up 07/17 Total time managing care of this patient today 45____ minutes.
[2024-07-16] MEDS: Enoxaparin Sodium 40 MG/0.4 ML SYRINGE SUBCUT (17:01)
[2024-07-16] MEDS: Racepinephrine HCL 0.5 ML VIAL.NEB INHALE (18:17)
[2024-07-16] MEDS: Ketamine HCl 500 MG in 0.9 % Sodium Chloride 250 ML 22.72 MG IVCONT (18:29)
--- NOTE | 2024-07-16 19:24 | PC.NURSE ---
Pt started this morning more awake and alert. He was able to state he is in [facility], that it is June 2024 as well as his name and birthday. He denied complaint. As pt alert and cooperative with care and able to endorse he understood the safety issues requiring him to be restrained and was able to teachback that he would not touch the medical tubes and lines he was trialled off the soft wrist restraints. Approx 1 1/2 hours later pt became more catatonic and was unable to maintain safety demonstrated by pt pulling off his [place] cath, pulling aggressively at his cardiac technician, IV lines, etc. He was unable to be redirected. MD aware and restraints reapplied. Dove cath was removed prior to restraint trial for a voiding trial, He did not urinate w/i the 6 hr window and was bladder scanned for 288. Pt stated he didn't need to go . oncoming RN aware. At approx 1800 pt noted to be more rhonchorous. He was yankauer suctioned orally with little relief, RT called to assist due to pt's resistance to care. He was nasally suctioned with only small effect. Pt became somewhat stridorous and RT notified MD while this RN continued to assess patient. Sats remained 95-100% and no other s/s distress noted. Pt recieved a Racemic Epi nebulizer with some + effect with pt noted to also have relaxed during that time. Oncoming ALEC Gan aware and in to see patient. Per Dr. Huerta and Dr. Trejo patient to have Ketamine drip started. Discussed at length with pharmacy and drip started as noted in MAY.
[2024-07-16] MEDS: Dextrose 5 % and Lactated Ring 1,000 ML 100 ML IVCONT (19:28)
[2024-07-16] MEDS: Labetalol HCL 100 MG/20 ML VIAL 10 MG IVPUSH (20:21)
[2024-07-16] MEDS: cloZAPine 25 MG TABLET PO (20:21)
--- NOTE | 2024-07-16 22:30 | PM.EVENT ---
Documented by User: Elvia Garcia NP 07/17/24 04:11 Event Note Date of Service: 07/17/24 Event Note: Pt pulled NGT out several inches. Tube advanced. CXR to confirm placement. Time Spent With Patient Time: Total time managing care of this patient today ____ minutes. Documented by User: Donald Trejo MD 07/17/24 15:30 Event Note Date of Service: 07/17/24
[2024-07-17] VITALS (41 sets, daily range): BP systolic 85–166; BP diastolic 35–89; PULSE 64–103; RESP 16–27; TEMP 32–37.4; O2SAT 91–100; BMI 28.2
[2024-07-17] MEDS: 0.9 % Sodium Chloride Flush 3 ML SYRINGE IVFLUSH ×3 (00:12→20:21)
[2024-07-17] MEDS: propofoL 200 MG/20 ML VIAL 100 MG IVPUSH ×2 (04:01→04:05)
[2024-07-17] MEDS: propofoL 1,000 MG/100 ML VIAL 26.73 MG IVCONT ×2 (04:06→06:55)
--- NOTE | 2024-07-17 04:14 | W.PM.CCHP ---
Procedures Date of Service Date of Service: 07/17/24 <Elvia Garcia NP - Last Filed: 07/17/24 04:32> 07/17/24 <Donald Trejo MD - Last Filed: 07/17/24 15:30> Intubation Intubation Comments: The patient became diaphoretic, tachypneic 30s to 40, using accessory muscles, with audible stridor and gross hypoventilation. RSI was carried out with the meds below.?The glottis was easily visualized with 4 GlideScope, and the trachea was intubated with a 7.0 ETT via? indirect video visualization, atraumatic.? Immediately upon intubation, a large amount of bloody secretions filled the endotracheal tube and were suctioned. BSBE, +CO2, SpO2 maintained.? The tube was secured at 25 cm at the upper lip. The patient tolerated the procedure well with no complications.? Placement confirmed with chest x-ray. <Elvia Garcia NP - Last Filed: 07/17/24 04:32> Consent for Procedure: Emergent-no informed consent obtained <Elvia Garcia NP - Last Filed: 07/17/24 04:32> Time out performed: Yes <Elvia Garcia NP - Last Filed: 07/17/24 04:32> Sedative: propofol <Elvia Garcia NP - Last Filed: 07/17/24 04:32> Mg given: 200 <Elvia Garcia NP - Last Filed: 07/17/24 04:32> Laryngoscope: fiber optic video scope <Elvia Garcia NP - Last Filed: 07/17/24 04:32> ET tube size: 7 <Elvia Garcia NP - Last Filed: 07/17/24 04:32> ET tube uncuffed: No <JORDIN Gutierrez Last Filed: 07/17/24 04:32> Tube secured depth (cm): 25 <JORDIN Gutierrez Last Filed: 07/17/24 04:32> Tube secured location: lips <JORDIN Gutierrez Last Filed: 07/17/24 04:32> Tube placement confirmation: visualized tube passing through cords, equal breath sounds bilaterally, no breath sounds over epigastrium and confirmation by capnometry <Elvia Garcia NP - Last Filed: 07/17/24 04:32> Patient tolerated procedure: well and no complications <Elvia Garcia NP - Last Filed: 07/17/24 04:32> Intubation complications: none <Elvia Garcia NP - Last Filed: 07/17/24 04:32>
[2024-07-17] MEDS: Norepinephrine Bitartrate/D5W 8 MG/250 ML PLAST..BAG 8.35 MG IVCONT ×2 (04:15→21:25)
[2024-07-17] MEDS: Racepinephrine HCL 0.5 ML VIAL.NEB INHALE (04:23)
[2024-07-17] MEDS: Dextrose 5 % and Lactated Ring 1,000 ML 100 ML IVCONT (05:01)
[2024-07-17 06:06] LABS: VBG Base Excess 2.1 mmol/L; VBG HCO3 23 mmol/L (22-26); VBG pCO2 26 mmHg; VBG pH 7.55 (7.32-7.43); VBG pO2 51 mmHg
[2024-07-17 06:08] LABS: MANUAL DIFF FLAG NO
[2024-07-17 06:16] LABS: Basophils Percent Auto 0.1 % (0-2); Hematocrit 36.4 % (42.0-52.0); Hemoglobin 12.4 g/dl (14.0-18.0); Imm Gran Pct Auto 0.6 % (0.0-0.4); Lymphocytes Percent Auto 6.4 % (20-40); Mean Corpuscular HGB Conc 34.1 g/dl (31.0-36.0); Mean Corpuscular Hemoglobin 28.6 pg (27.0-33.0); Mean Corpuscular Volume 84.1 fL (80.0-98.0); Mean Platelet Volume 12.1 fL (9.4-12.4); Monocytes Absolute Auto 1.3 X10*3/uL (0.1-1.2); Monocytes Percent Auto 8.4 % (2-11); Neutrophils Absolute Auto 13.1 x10*3/uL (2.0-8.3); Neutrophils Percent Auto 84.5 % (45-73); Platelet Count 269 X10*3/uL (160-400); Red Blood Count 4.33 X10*6/uL (4.60-5.80); Red Cell Distribution Width 13.2 % (11.0-16.0); White Blood Count 15.5 X10*3/uL (4.8-10.8)
--- NOTE | 2024-07-17 06:17 | PC.NURSE ---
Around 0400 pt developed audible stridor, using accessory?muscles, RR 30s, maintaining spO2 >95%. DEAN OF GIRLS Jose to bedside, decision to intubate. Propofol administered for RSI - see MAY. ETT #7.0, 25 cm?@ lip, on AC settings - see vent assessment. RASS -3, propofol gtt titrated per MAY. BP 80s systolic, levophed gtt titrated per MAY. OGT placed. Cxr to confirm placement. Tube feeds restarted - see tube feed assessment. Pt requiring straight cath x2 per void trial protocol - see straight cath/I&O assessment, DTV 1200.
[2024-07-17 06:33] LABS: Alanine Aminotransferase 10 U/L (0-40); Albumin Level 3.5 g/dL (3.5-5.0); Alkaline Phosphatase 55 U/L (39-117); Anion Gap 19 (12-20); Aspartate Amino Transferase 12 U/L (5-37); Bilirubin Total 0.5 mg/dL (0.0-1.0); Blood Urea Nitrogen 29 mg/dL (9-16); Calcium 9.7 mg/dL (8.4-10.2); Carbon Dioxide 19 mmol/L (22-29); Chloride 107 mmol/L (96-108); Creatinine Clr Calc Pharmacy 60.5; Estimated Glomerular Filt Rate 50; Glucose Random 191 mg/dL (60-115); Magnesium 1.9 mg/dL (1.6-2.6); Phosphorus 3.1 mg/dL (2.7-4.5); Potassium 4.1 mmol/L (3.3-5.1); Sodium 141 mmol/L (135-145); Total Protein 6.5 g/dL (6.5-8.0)
[2024-07-17 06:40] LABS: Venous Blood Gas Refer to POC result
[2024-07-17] MEDS: OLANZapine 10 MG VIAL 5 MG IM ×2 (08:53→18:13)
--- NOTE | 2024-07-17 10:06 | MHC.CLN ---
PT REQUIRES TF FOR NUTRITION SUPPORT R/T PROLONGED POOR PO INTAKE PT IS NOW INTUBATED AND SEDATED DISCUSSED AT ROUNDS WITH MD-TF STARTED RECOMMEND PROMOTE AT MAX GOAL RATE 65ML/HR WITH 240ML FWF Q 6 HRS TO PROVIDE 1560KCALS ([id number] WITH SEDATION; 28KCALS/KG), 97.5G PROTEIN (1.2G/KG), 2269ML TOTAL WATER FROM FORMULA AND FLUSHES (28ML/KG) MONITOR TOLERANCE AND LYTES SEE ALSO FULL CLINICAL NUTRITION ASSESSMENT
[2024-07-17] MEDS: Memantine HCl 5 MG TABLET PO (10:20)
[2024-07-17] MEDS: Cyproheptadine HCl 4 MG TABLET PO ×2 (10:20→15:27)
[2024-07-17] MEDS: Ampicillin Sodium/Sulbactam Na 3 GM in 0.9 % Sodium Chloride 100 ML IV ×3 (10:21→20:21)
[2024-07-17] MEDS: Lactulose 20 GM/30 ML SOLUTION 30 GM PO (10:24)
[2024-07-17] MEDS: propofoL 1,000 MG/100 ML VIAL 16.04 MG IVCONT ×2 (10:37→18:11)
--- NOTE | 2024-07-17 10:40 | MHC.SLORD ---
Speech Language Pathology Order Status: Pt intubated, DELIVERY MERCHANDISER to consult again when indicated.
[2024-07-17] MEDS: Enoxaparin Sodium 40 MG/0.4 ML SYRINGE SUBCUT (15:27)
--- NOTE | 2024-07-17 15:30 | P.PNCC_ITS ---
Subjective Subjective Date of Service: 07/17/24 Interval History: 59-year-old gentleman with underlying history of schizoaffective disorder admitted to psychiatry on 06/21/2024 secondary to worsening psychiatric symptoms for which he was started on ECT with likely post ECT pulmonary aspiration, also with mental state alternating between catatonia and significant agitation requiring ketamine drip. Overnight for 07/16-07/17 with pulmonary aspiration, hypoxia, and respiratory distress requiring intubation and ventilatory support. Overnight events as above. Critical Care Time (minutes): 45 Physical Exam 2 Vital Signs: Vital Signs: Last Vital Signs Temp 98.6 F 07/17/24 08:00 Pulse 71 07/17/24 15:28 Resp 16 07/17/24 15:00 BP 118/67 07/17/24 15:28 Pulse Ox 95 07/17/24 15:00 O2 Del Method Mechanical Ventil ation 07/17/24 15:00 O2 Flow Rate 99 07/15/24 22:00 FiO2 21 07/17/24 15:10 Oxygen Flow Rate 1 07/09/24 13:21 BMI result Body Mass Index 28.2 Const: General: no acute distress and other (Sedated on ventilatory support) Eyes: Sclerae: sclerae normal EOM: EOMs intact bilaterally Neck: Neck: Yes no lymphadenopathy, Yes trachea midline and Yes supple Resp: Auscultation: clear to auscultation bilaterally Cardio: Rate: regular rate Rhythm: regular rhythm Heart sounds: no gallops, no murmurs and no rubs GI: Palpation (GI): Soft to palpation and Other GI palpation findings present ( Nontender) Auscultation: normal bowel sounds Extrem: General: Yes no pedal edema, No clubbing and No cyanosis Objective Data Labs 07/17/24 06:00 07/17/24 06:00 Labs: Laboratory Results - last 24 hr 07/17/24 07/17/24 06:00 06:02 WBC 15.5 H RBC 4.33 L Hgb 12.4 L Hct 36.4 L MCV 84.1 MCH 28.6 MCHC 34.1 RDW 13.2 Plt Count 269 MPV 12.1 Immature Gran % (Auto) 0.6 H Neut % (Auto) 84.5 H Lymph % (Auto) 6.4 L [place] % (Auto) 8.4 Eos % (Auto) 0.0 Baso % (Auto) 0.1 Lymph # (Auto) 1.0 L [place] # (Auto) 1.3 H Eos # (Auto) 0.0 Baso # (Auto) 0.0 Abs Immat Gran (auto) 0.10 H Absolute Neuts (auto) 13.1 H Absolute Nucleated RBC 0.000 Nucleated RBC % (auto) 0.0 VBG pH 7.55 H VBG pCO2 26 VBG pO2 51 VBG HCO3 23 VBG O2 Saturation 84.0 VBG Base Excess 2.1 Sodium 141 Potassium 4.1 Chloride 107 Carbon Dioxide 19 L Anion Gap 19 BUN 29 H Creatinine 1.44 H Estim Creat Clear Calc 60.5 Estimated GFR 50 Random Glucose 191 H Calcium 9.7 Phosphorus 3.1 Magnesium 1.9 Total Bilirubin 0.5 AST 12 ALT 10 Alkaline Phosphatase 55 Total Protein 6.5 Albumin 3.5 Progress Note: A&P Assessment and plan (1) Schizoaffective disorder: Status: Acute (2) Catatonia: Status: Acute (3) Pulmonary aspiration: Status: Acute (4) Acute respiratory failure with hypoxia: Status: Acute Plan Assessment: 59-year-old gentleman with underlying schizoaffective disorder admitted with psychiatric decompensation requiring ECT with hospital course further complicated by pulmonary aspiration, mixed catatonia/agitation requiring ketamine, now monitored in the intensive care unit. Plan: Neuro: No acute issues. Cardiac: No acute issues. Pulmonary: With worsening pulmonary aspiration requiring intubation on 07/17/2024. Now on empiric coverage for pulmonary aspiration pneumonia/pneumonitis. Continue to titrate off ventilatory support as tolerated. Renal: No acute issues. Endo: No acute issues. GI: No acute issues. ID: Empiric antibiotics for pulmonary aspiration pneumonitis versus pneumonia. Heme/Onc: No acute issues. Psych: Decompensated schizoaffective disorder requiring ECT, with mixed catatonia/agitation, now status post multiple doses of ketamine. Psychiatry service care appreciated. Continue baseline regimen of Clozaril and Zyprexa. Miscellaneous: No acute issues. Prophylaxis: Lovenox, famotidine Diet: Tube feeds Critical care time spent: 45 minutes Quality Stroke Does the patient have a stroke diagnosis?: No VTE Prior VTE?: No VTE Risk Level:: Medical - low VTE Device Contraindication: N/A - Device Ordered VTE Drug Contraindication: N/A - Med Ordered
--- NOTE | 2024-07-17 19:27 | PC.NURSE ---
spoke with proxy earlier this morning, proxy stated he had an operation today and would call in a few days later in the day MD stated plan to get MRI... multiple attempts made to contact proxy today with no success... MD aware therefore, per MD non-emergency and can get MRI in the morning if unable to confirm MRI consent with PROXY before end of day. Additionally, portable x-ray obtained for attempt at ruling out metal in body.
[2024-07-17] MEDS: cloZAPine 25 MG TABLET PO (20:21)
[2024-07-17] MEDS: propofoL 1,000 MG/100 ML VIAL 21.38 MG IVCONT (21:28)
[2024-07-18] VITALS (35 sets, daily range): BP systolic 101–184; BP diastolic 56–92; PULSE 54–99; RESP 16–27; TEMP 35–37.8; O2SAT 92–99; BMI 31.3
[2024-07-18] MEDS: propofoL 1,000 MG/100 ML VIAL 16.04 MG IVCONT (01:42)
[2024-07-18] MEDS: Ampicillin Sodium/Sulbactam Na 3 GM in 0.9 % Sodium Chloride 100 ML IV ×4 (03:17→19:39)
--- NOTE | 2024-07-18 04:42 | PC.NURSE ---
CARE ASSUMED 7PM..REMAINS INTUBATED...VCV VENT SUPPORT..SUCTIONED SMALL AMOUNT THICK VALE-CREAM SECRETIONS VIA ETT..SEDATED WITH PROPOFOL...COUGHING AGAINST ETT AND ATTEMPTING TO CHEW ON ETT WITH PROPOFOL 30 MCG/KG/MIN....SEDATE WITH 40 MCG/KG/MIN BUT DYSYNCHRONOUS WHEN PROPOFOL WEANED BACK TO 30 MCG/KG/MIN..RETURNED PROPOFOL TO 40 MCG/KG/MIN...LEVOPHED DRIP PER MAY...NSR..NO ECTOPY...TUBE FEEDS TITRATED TO GOAL OF PROMOTE 65 CC/HR....DIETARY RECOMMENDATION FOR TUBE FEEDS REVIEWED WITH PROVIDER..STARTED H20 BOLUSES 240ML Q6H @ 10PM AND 4AM
[2024-07-18 05:31] LABS: VBG Base Excess 4.2 mmol/L; VBG HCO3 26 mmol/L (22-26); VBG pCO2 33 mmHg; VBG pO2 59 mmHg
[2024-07-18 05:36] LABS: Venous Blood Gas Refer to POC result
[2024-07-18 05:37] LABS: MANUAL DIFF FLAG NO
[2024-07-18 05:40] LABS: Basophils Percent Auto 0.1 % (0-2); Hematocrit 34.4 % (42.0-52.0); Hemoglobin 11.3 g/dl (14.0-18.0); Imm Gran Abs Auto 0.04 X10*3/uL (0.00-0.03); Imm Gran Pct Auto 0.5 % (0.0-0.4); Lymphocytes Absolute Auto 1.7 X10*3/uL (1.2-4.9); Mean Corpuscular HGB Conc 32.8 g/dl (31.0-36.0); Mean Corpuscular Hemoglobin 27.8 pg (27.0-33.0); Mean Corpuscular Volume 84.5 fL (80.0-98.0); Mean Platelet Volume 11.8 fL (9.4-12.4); Monocytes Absolute Auto 0.9 X10*3/uL (0.1-1.2); Monocytes Percent Auto 11.4 % (2-11); Neutrophils Absolute Auto 4.8 x10*3/uL (2.0-8.3); Platelet Count 219 X10*3/uL (160-400); Red Blood Count 4.07 X10*6/uL (4.60-5.80); Red Cell Distribution Width 13.3 % (11.0-16.0); White Blood Count 7.5 X10*3/uL (4.8-10.8)
[2024-07-18 06:03] LABS: Albumin Level 3.3 g/dL (3.5-5.0); Anion Gap 15 (12-20); Blood Urea Nitrogen 29 mg/dL (9-16); Carbon Dioxide 22 mmol/L (22-29); Chloride 106 mmol/L (96-108); Creatinine Clr Calc Pharmacy 69.2; Estimated Glomerular Filt Rate 55; Glucose Random 160 mg/dL (60-115); Phosphorus 3.3 mg/dL (2.7-4.5); Potassium 3.4 mmol/L (3.3-5.1); Sodium 140 mmol/L (135-145)
[2024-07-18] MEDS: propofoL 1,000 MG/100 ML VIAL 21.38 MG IVCONT ×2 (06:06→08:18)
[2024-07-18] MEDS: 0.9 % Sodium Chloride Flush 3 ML SYRINGE IVFLUSH ×3 (08:18→19:39)
[2024-07-18] MEDS: Potassium Chloride Packet 20 MEQ PACKET 40 MEQ PO (08:32)
[2024-07-18] MEDS: OLANZapine 10 MG VIAL 5 MG IM ×2 (08:33→16:20)
[2024-07-18] MEDS: Memantine HCl 5 MG TABLET PO (08:42)
[2024-07-18] MEDS: Famotidine/PF 20 MG/2 ML VIAL IVPUSH (08:52)
[2024-07-18] MEDS: Midazolam HCl 2 MG/2 ML VIAL 4 MG IVPUSH (09:53)
--- NOTE | 2024-07-18 10:13 | MHC.CLN ---
F/U PT IS INTUBATED AND SEDATED DISCUSSED AT ROUNDS WITH MD RECEIVING PROMOTE AT MAX GOAL RATE 65ML/HR WITH 240ML FWF Q 6 HRS PROVIDES 1560KCALS (1983 TOTAL KCALS WITH SEDATION; 24KCALS/KG), 97.5G PROTEIN (1.2G/KG), 2269ML TOTAL WATER FROM FORMULA AND FLUSHES (28ML/KG) MONITOR TOLERANCE AND LYTES
--- NOTE | 2024-07-18 11:43 | PM.CCPN ---
Subjective Subjective Date of Service: 07/18/24 Interval History: 59-year-old gentleman with underlying history of schizoaffective disorder admitted to psychiatry on 06/21/2024 secondary to worsening psychiatric symptoms for which he was started on ECT with likely post ECT pulmonary aspiration, also with mental state alternating between catatonia and significant agitation requiring ketamine drip. Overnight for 07/16-07/17 with pulmonary aspiration, hypoxia, and respiratory distress requiring intubation and ventilatory support. No events overnight. Critical Care Time (minutes): 45 Physical Exam Vital Signs: Vital Signs: Last Vital Signs Temp 98.2 F 07/18/24 09:00 Pulse 57 07/18/24 11:00 Resp 16 07/18/24 11:00 BP 135/66 07/18/24 11:00 Pulse Ox 95 07/18/24 11:00 O2 Del Method Mechanical Ventil ation 07/18/24 11:00 O2 Flow Rate 99 07/15/24 22:00 FiO2 21 07/18/24 11:20 Oxygen Flow Rate 1 07/09/24 13:21 BMI result Body Mass Index 31.3 Const: General: no acute distress and other (Sedated on ventilatory support) Eyes: Sclerae: sclerae normal EOM: EOMs intact bilaterally Neck: Neck: Yes no lymphadenopathy, Yes trachea midline and Yes supple Resp: Auscultation: clear to auscultation bilaterally Cardio: Rate: regular rate Rhythm: regular rhythm Heart sounds: no gallops, no murmurs and no rubs GI: Palpation (GI): Soft to palpation and Other GI palpation findings present ( Nontender) Auscultation: normal bowel sounds Extrem: General: Yes no pedal edema, No clubbing and No cyanosis Objective Data Labs 07/18/24 05:23 07/18/24 05:23 Labs: Laboratory Results - last 24 hr 07/18/24 07/18/24 05:23 05:27 WBC 7.5 RBC 4.07 L Hgb 11.3 L Hct 34.4 L MCV 84.5 MCH 27.8 MCHC 32.8 RDW 13.3 Plt Count 219 MPV 11.8 Immature Gran % (Auto) 0.5 H Neut % (Auto) 65.0 Lymph % (Auto) 23.0 [place] % (Auto) 11.4 H Eos % (Auto) 0.0 Baso % (Auto) 0.1 Lymph # (Auto) 1.7 [place] # (Auto) 0.9 Eos # (Auto) 0.0 Baso # (Auto) 0.0 Abs Immat Gran (auto) 0.04 H Absolute Neuts (auto) 4.8 Absolute Nucleated RBC 0.000 Nucleated RBC % (auto) 0.0 VBG pH 7.50 H VBG pCO2 33 VBG pO2 59 VBG HCO3 26 VBG O2 Saturation 89.0 VBG Base Excess 4.2 Sodium 140 Potassium 3.4 Chloride 106 Carbon Dioxide 22 Anion Gap 15 BUN 29 H Creatinine 1.32 Estim Creat Clear Calc 69.2 Estimated GFR 55 Random Glucose 160 H Calcium 9.0 D Phosphorus 3.3 Magnesium 2.0 Albumin 3.3 L Progress Note: A&P Assessment and plan (1) Acute respiratory failure with hypoxia: Status: Acute (2) Pulmonary aspiration: Status: Acute (3) Catatonia: Status: Acute Plan Assessment: 59-year-old gentleman with underlying schizoaffective disorder admitted with psychiatric decompensation requiring ECT with hospital course further complicated by pulmonary aspiration, mixed catatonia/agitation requiring ketamine, now monitored in the intensive care unit. Plan: Neuro: MRI brain is pending to evaluate for possible organic causes for underlying encephalopathy. Cardiac: No acute issues. Pulmonary: With worsening pulmonary aspiration requiring intubation on 07/17/2024. Now on empiric coverage for pulmonary aspiration pneumonia/pneumonitis. Continue to titrate off ventilatory support as tolerated. Renal: No acute issues. Endo: No acute issues. GI: No acute issues. ID: Empiric antibiotics for pulmonary aspiration pneumonitis versus pneumonia. Heme/Onc: No acute issues. Psych: Decompensated schizoaffective disorder requiring ECT, with mixed catatonia/agitation, now status post multiple doses of ketamine. Psychiatry service care appreciated. Continue baseline regimen of Clozaril and Zyprexa. Miscellaneous: No acute issues. Prophylaxis: Lovenox, famotidine Diet: Tube feeds Critical care time spent: 45 minutes Quality Stroke Does the patient have a stroke diagnosis?: No VTE Prior VTE?: No VTE Risk Level:: Medical - low VTE Device Contraindication: N/A - Device Ordered VTE Drug Contraindication: N/A - Med Ordered
[2024-07-18] MEDS: Lactulose 20 GM/30 ML SOLUTION 30 GM PO (12:52)
--- NOTE | 2024-07-18 13:23 | MHC.CM.PN ---
Pt continues ventilatory support in ICU: Plans for the day include MRI and possible extubation. CM to follow for changes to d/c planning needs
[2024-07-18] MEDS: Enoxaparin Sodium 40 MG/0.4 ML SYRINGE SUBCUT (16:19)
[2024-07-18] MEDS: Metoprolol Tartrate 5 MG/5 ML VIAL IVPUSH (17:33)
[2024-07-19] VITALS (29 sets, daily range): BP systolic 143–181; BP diastolic 72–103; PULSE 67–104; RESP 14–31; TEMP 36.9–37.8; O2SAT 91–99; BMI 27.7
[2024-07-19] MEDS: Ampicillin Sodium/Sulbactam Na 3 GM in 0.9 % Sodium Chloride 100 ML IV ×4 (03:18→21:06)
[2024-07-19 04:49] LABS: VBG Base Excess 2.7 mmol/L; VBG HCO3 27 mmol/L (22-26); VBG pCO2 39 mmHg; VBG pH 7.43 (7.32-7.43); VBG pO2 68 mmHg
[2024-07-19 04:49] LABS: MANUAL DIFF FLAG NO
[2024-07-19 04:50] LABS: Basophils Percent Auto 0.2 % (0-2); Hematocrit 36.8 % (42.0-52.0); Hemoglobin 12.2 g/dl (14.0-18.0); Imm Gran Abs Auto 0.04 X10*3/uL (0.00-0.03); Imm Gran Pct Auto 0.6 % (0.0-0.4); Lymphocytes Absolute Auto 1.2 X10*3/uL (1.2-4.9); Lymphocytes Percent Auto 19.3 % (20-40); Mean Corpuscular HGB Conc 33.2 g/dl (31.0-36.0); Mean Corpuscular Hemoglobin 27.9 pg (27.0-33.0); Mean Corpuscular Volume 84.2 fL (80.0-98.0); Mean Platelet Volume 11.5 fL (9.4-12.4); Monocytes Absolute Auto 0.6 X10*3/uL (0.1-1.2); Monocytes Percent Auto 9.5 % (2-11); Neutrophils Absolute Auto 4.5 x10*3/uL (2.0-8.3); Neutrophils Percent Auto 70.4 % (45-73); Platelet Count 189 X10*3/uL (160-400); Red Blood Count 4.37 X10*6/uL (4.60-5.80); Red Cell Distribution Width 13.3 % (11.0-16.0); White Blood Count 6.4 X10*3/uL (4.8-10.8)
[2024-07-19 05:00] LABS: Venous Blood Gas Refer to POC result
[2024-07-19 05:14] LABS: Albumin Level 3.6 g/dL (3.5-5.0); Anion Gap 16 (12-20); Blood Urea Nitrogen 20 mg/dL (9-16); Calcium 9.3 mg/dL (8.4-10.2); Carbon Dioxide 23 mmol/L (22-29); Chloride 110 mmol/L (96-108); Creatinine Clr Calc Pharmacy 65.6; Estimated Glomerular Filt Rate > 60; Glucose Random 106 mg/dL (60-115); Phosphorus 3.5 mg/dL (2.7-4.5); Potassium 4.2 mmol/L (3.3-5.1); Sodium 145 mmol/L (135-145)
--- NOTE | 2024-07-19 05:18 | PC.NURSE ---
CARE ASSUMED 11PM...EXTUBATED DAY-SHIFT..CONTINUES O2 2 L/M CANNULA..NO DISTRESS..SAO2 96-97%..OCASSIONAL LOOSE COUGH..REMAINS NON-VERBAL..INTERMITTANTLY AGITATED...ATTEMPTS TO GRA STAFF AND/OR KICK WHEN REPOSITIONED IN BED..DOES NOT FOLLOWANY COMMANDS....ATTEMTS TOPULLOFF/OUT LINES WHEN WRIST RESTRAINTS TEMPORARILY RELEASED..BILATERAL WRIST RESTRAINTS MAINTAINED FORPATIENT SAFETY..REMAINS WITH MERINO CATHETER D/T PREVIOUS URINARY RETENTION..NSR HR 96-98
[2024-07-19] MEDS: Famotidine/PF 20 MG/2 ML VIAL IVPUSH (08:39)
[2024-07-19] MEDS: 0.9 % Sodium Chloride Flush 3 ML SYRINGE IVFLUSH ×2 (08:39→15:29)
--- NOTE | 2024-07-19 09:32 | MHC.CLN ---
Addendum entered by Funmilayo Davison RD 07/19/24 14:05: SEEN BY PET NUTRITION SPECIALIST WITH RECOMMENDATION FOR NPO. PATIENT WITH NG TUBE FOR INTAKE. RECOMMEND TUBE FEED JEVITY 1.0 AT MAX GOAL RATE 80 ML PER HOUR PLUS FREE WATER FLUSHES 120 ML Q6 HOURS. PROVIDES 2035 KCALS (25.2 KCALS/KG IBW), 85 G PROTEIN (1.05 G/KG IBW), 2083 ML TOTAL FREE WATER FROM FORMULA AND FLUSH (25.7 ML/KG IBW). FOLLOW FOR TUBE FEED TOLERANCE AND PLAN OF CARE. Original Note: F/U DISCUSSED AT MD ROUNDS TODAY. PATIENT EXTUBATED 07/18. CURRENTLY NPO PENDING SWALLLOW EVAL. SKIN WITH REDNESS TO COCCYX AND TANK=9. CONTINUE TO FOLLOW FOR PLAN OF CARE.
--- NOTE | 2024-07-19 10:41 | MHC.SL.SWA ---
Speech Pathologist Impression: Risk of Aspiration, Severe Oropharyngeal Dysphagia Risk of Aspiration Due to: Medically Fragile Neurological Condition History of Pneumonia Poor PO Intake Weak Cough Weak Voice Dysphasia Diet Status: Recc NPO, Pt receiving TFs Liquid Consistency and Strategies for Safe Swallow: Liquid Intake Recommendation: NPO Solid Food Consistency: Dietary Recommendations: NPO Additional Modifications to Solid Foods: FOLLOWED BY RD: PT REQUIRES TF FOR NUTRITION SUPPORT R/T PROLONGED POOR PO INTAKE Oral Medication Intake: NPO Please contact the pharmacy regarding appropriate crushable or liquid drug formulations that are available whenever modified delivery is recommended. Supervision While Eating and Drinking for Safe Swallow: PO with COLORIST DYER Recommendation for Speech: Inpatient Speech Therapy Comment: COLORIST DYER to re-assess when appropriate Frequency/Duration: M-F daily Date Range for Service Req: Timeline to reassess: Construction Estimator Clinican/Clinical Fellow: No Supervisory Statement: I have reviewed and agree with the student/clinical fellow's documentation: N/A Speech Language Pathologist: Nona Whitmore M.A., CCC-COLORIST DYER
[2024-07-19] MEDS: Labetalol HCL 100 MG/20 ML VIAL 10 MG IVPUSH ×3 (12:18→21:32)
[2024-07-19] MEDS: Metoprolol Tartrate 5 MG/5 ML VIAL IVPUSH (12:51)
--- NOTE | 2024-07-19 14:27 | MHC.CM.PN ---
EMR REVIEWED AND PER MD ROUNDS, PT WAS EXTUBATED 07/18 WITHOUT COMPLICATION. AWAITING BOOTH SUPERVISOR ASSESSMENT. CM WILL CONTINUE TO FOLLOW.
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
--- NOTE | 2024-07-19 15:51 | PM.CCPN ---
Subjective Subjective Date of Service: 07/19/24 Interval History: 59-year-old gentleman with underlying history of schizoaffective disorder admitted to psychiatry on 06/21/2024 secondary to worsening psychiatric symptoms for which he was started on ECT with likely post ECT pulmonary aspiration, also with mental state alternating between catatonia and significant agitation requiring ketamine drip. Overnight for 07/16-07/17 with pulmonary aspiration, hypoxia, and respiratory distress requiring intubation and ventilatory support. Extubated 07/18/2024. No events overnight. Critical Care Time (minutes): 45 Physical Exam Vital Signs: Vital Signs: Last Vital Signs Temp 99.3 F 07/19/24 12:20 Pulse 84 07/19/24 15:00 Resp 25 H 07/19/24 15:00 BP 167/103 H 07/19/24 15:00 Pulse Ox 96 07/19/24 15:00 O2 Del Method Nasal Cannula 07/19/24 15:00 O2 Flow Rate 1 07/19/24 15:00 FiO2 80 07/18/24 15:17 Oxygen Flow Rate 1 07/09/24 13:21 BMI result Body Mass Index 27.7 Const: General: no acute distress and lethargic (Intermittently aggressive) Orientation/consciousness: lethargic (Intermittently aggressive) Eyes: Sclerae: sclerae normal EOM: EOMs intact bilaterally Neck: Neck: Yes no lymphadenopathy, Yes trachea midline and Yes supple Resp: Effort & Inspection: normal respiratory effort and no respiratory distress Auscultation: crackles (Mild bibasilar) Cardio: Rate: regular rate Rhythm: regular rhythm Heart sounds: no gallops, no murmurs and no rubs GI: Palpation (GI): Soft to palpation and Other GI palpation findings present ( Nontender) Auscultation: normal bowel sounds Extrem: General: Yes no pedal edema, No clubbing and No cyanosis Objective Data Labs 07/19/24 04:44 07/19/24 04:44 Labs: Laboratory Results - last 24 hr 07/19/24 07/19/24 04:44 04:45 WBC 6.4 RBC 4.37 L Hgb 12.2 L Hct 36.8 L MCV 84.2 MCH 27.9 MCHC 33.2 RDW 13.3 Plt Count 189 MPV 11.5 Immature Gran % (Auto) 0.6 H Neut % (Auto) 70.4 Lymph % (Auto) 19.3 L [place] % (Auto) 9.5 Eos % (Auto) 0.0 Baso % (Auto) 0.2 Lymph # (Auto) 1.2 [place] # (Auto) 0.6 Eos # (Auto) 0.0 Baso # (Auto) 0.0 Abs Immat Gran (auto) 0.04 H Absolute Neuts (auto) 4.5 Absolute Nucleated RBC 0.000 Nucleated RBC % (auto) 0.0 VBG pH 7.43 VBG pCO2 39 VBG pO2 68 VBG HCO3 27 H VBG O2 Saturation 92.0 VBG Base Excess 2.7 Sodium 145 Potassium 4.2 D Chloride 110 H Carbon Dioxide 23 Anion Gap 16 BUN 20 H Creatinine 1.22 Estim Creat Clear Calc 65.6 Estimated GFR > 60 Random Glucose 106 Calcium 9.3 Phosphorus 3.5 Magnesium 2.0 Albumin 3.6 Progress Note: A&P Assessment and plan (1) Schizoaffective disorder: Status: Acute (2) Catatonia: Status: Acute (3) Pulmonary aspiration: Status: Acute Plan Assessment: 59-year-old gentleman with underlying schizoaffective disorder admitted with psychiatric decompensation requiring ECT with hospital course further complicated by pulmonary aspiration, mixed catatonia/agitation requiring ketamine, now monitored in the intensive care unit. Plan: Neuro: MRI brain with no acute findings. Cardiac: No acute issues. Pulmonary: With worsening pulmonary aspiration requiring intubation on 07/17/2024. Extubated 07/18/2024. Renal: No acute issues. Endo: No acute issues. GI: No acute issues. ID: Empiric antibiotics for pulmonary aspiration pneumonitis versus pneumonia. Heme/Onc: No acute issues. Psych: Decompensated schizoaffective disorder requiring ECT, with mixed catatonia/agitation, now status post multiple doses of ketamine. Psychiatry service care appreciated. Continue baseline regimen of Clozaril. Additional ketamine infusion today per psychiatry recommendation. Miscellaneous: No acute issues. Prophylaxis: Lovenox Diet: Tube feeds Critical care time spent: 45 minutes Quality Stroke Does the patient have a stroke diagnosis?: No VTE Prior VTE?: No VTE Risk Level:: Medical - low VTE Device Contraindication: N/A - Device Ordered VTE Drug Contraindication: N/A - Med Ordered
[2024-07-19] MEDS: Ketamine HCl 500 MG in 0.9 % Sodium Chloride 250 ML 22.72 MG IVCONT (16:15)
--- NOTE | 2024-07-19 16:19 | MHC.CLN ---
F/U TUBE FEED STARTED TODAY: PROMOTE AT 20 ML PER HOUR.
--- NOTE | 2024-07-19 17:56 | PC.NURSE ---
Assumed care at 0700- Pt. remains catatonic with minimal speech. Occasionally tracks, does not follow commands or respond appropriately to questions. MEDICAL FIELD REPRESENTATIVE at bedside for swallow eval- see note. NGT placed by this RN, CXR obtained to verify placement. TF started per order, no s/s of TF intolerance. Pt. SR/ST on tele, HR 60s-100s. SBPs intermittently >160, MD aware- PRN Labetelol given x2 per MAR, 1x dose 5mg lopressor given per MAR. Pt. weaned to RA, LS coarse throughout. Consistent loose, moist cough- unable to expectorate sputum and requires frequent oral suctioning with yankaur. Sputum blood streaked/ ada red- MD aware, Lovenox held. Pt. with no BM charted since 07/09- aware, no new orders at this time. BS+. Dove remains in place draining cyu. HCP updated via telephone by this RN. Q2 repositioning and oral care performed. Plan of care ongoing.
[2024-07-19] MEDS: cloZAPine 25 MG TABLET PO (21:06)
[2024-07-20] VITALS (24 sets, daily range): BP systolic 136–165; BP diastolic 66–89; PULSE 64–105; RESP 12–25; TEMP 36.2–37.3; O2SAT 91–97; BMI 28.3
[2024-07-20] MEDS: 0.9 % Sodium Chloride Flush 3 ML SYRINGE IVFLUSH ×4 (00:35→21:27)
[2024-07-20] MEDS: Ampicillin Sodium/Sulbactam Na 3 GM in 0.9 % Sodium Chloride 100 ML IV ×4 (02:40→21:22)
[2024-07-20] MEDS: OLANZapine 10 MG VIAL 5 MG IM (03:10)
[2024-07-20 05:05] LABS: VBG Base Excess 4.2 mmol/L; VBG HCO3 29 mmol/L (22-26); VBG pCO2 44 mmHg; VBG pH 7.42 (7.32-7.43); VBG pO2 70 mmHg
[2024-07-20 05:09] LABS: Venous Blood Gas Refer to POC result
[2024-07-20 05:23] LABS: MANUAL DIFF FLAG NO
[2024-07-20 05:26] LABS: Basophils Percent Auto 0.1 % (0-2); Hematocrit 37.9 % (42.0-52.0); Hemoglobin 12.3 g/dl (14.0-18.0); Imm Gran Abs Auto 0.06 X10*3/uL (0.00-0.03); Imm Gran Pct Auto 0.8 % (0.0-0.4); Lymphocytes Absolute Auto 1.3 X10*3/uL (1.2-4.9); Lymphocytes Percent Auto 17.5 % (20-40); Mean Corpuscular HGB Conc 32.5 g/dl (31.0-36.0); Mean Corpuscular Volume 86.3 fL (80.0-98.0); Mean Platelet Volume 12.3 fL (9.4-12.4); Monocytes Absolute Auto 0.7 X10*3/uL (0.1-1.2); Neutrophils Absolute Auto 5.1 x10*3/uL (2.0-8.3); Neutrophils Percent Auto 71.6 % (45-73); Platelet Count 214 X10*3/uL (160-400); Red Blood Count 4.39 X10*6/uL (4.60-5.80); Red Cell Distribution Width 13.6 % (11.0-16.0); White Blood Count 7.1 X10*3/uL (4.8-10.8)
[2024-07-20 05:43] LABS: Albumin Level 3.5 g/dL (3.5-5.0); Anion Gap 15 (12-20); Blood Urea Nitrogen 28 mg/dL (9-16); Calcium 9.4 mg/dL (8.4-10.2); Carbon Dioxide 23 mmol/L (22-29); Chloride 111 mmol/L (96-108); Creatinine Clr Calc Pharmacy 63.5; Estimated Glomerular Filt Rate 58; Glucose Random 129 mg/dL (60-115); Magnesium 2.2 mg/dL (1.6-2.6); Phosphorus 4.8 mg/dL (2.7-4.5); Potassium 4.2 mmol/L (3.3-5.1); Sodium 145 mmol/L (135-145)
[2024-07-20] MEDS: Labetalol HCL 100 MG/20 ML VIAL 10 MG IVPUSH (06:13)
--- NOTE | 2024-07-20 07:18 | PC.NURSE ---
Neuro: opens eyes to verbal stimuli, tracks movements at times, unable to follow commands, soft spoken and muffled? Cardiac: SR to ST, ST mainly due to tremors, Labetalol given x2 for [id number], good effect noted decreased SBP Resp: Oral suctioning as needed, blood streaked sputum noted GI/: tube feed at goal, tolerating well? Integumentary/Musculoskeletal: blanchable redness to buttocks, scattered bruising and scattered scratches.??
[2024-07-20] MEDS: Famotidine/PF 20 MG/2 ML VIAL IVPUSH (08:15)
[2024-07-20] MEDS: Memantine HCl 5 MG TABLET PO (08:24)
--- NOTE | 2024-07-20 10:50 | P.PNCC_ITS ---
Subjective Subjective Date of Service: 07/20/24 Interval History: 59-year-old gentleman with underlying history of schizoaffective disorder admitted to psychiatry on 06/21/2024 secondary to worsening psychiatric symptoms for which he was started on ECT with likely post ECT pulmonary aspiration, also with mental state alternating between catatonia and significant agitation requiring ketamine drip. Overnight for 07/16-07/17 with pulmonary aspiration, hypoxia, and respiratory distress requiring intubation and ventilatory support. Extubated 07/18/2024. Received additional ketamine infusion on 07/19/2024. No events overnight. More awake and conversant this morning. Critical Care Time (minutes): 0 Physical Exam 2 Vital Signs: Vital Signs: Last Vital Signs Temp 98.7 F 07/20/24 04:00 Pulse 72 07/20/24 10:00 Resp 20 07/20/24 10:00 BP 153/78 H 07/20/24 10:00 Pulse Ox 97 07/20/24 10:00 O2 Del Method Room Air 07/20/24 10:00 O2 Flow Rate 1 07/19/24 17:00 FiO2 80 07/18/24 15:17 Oxygen Flow Rate 1 07/09/24 13:21 BMI result Body Mass Index 28.3 Const: Other: Coarse tremor General: no acute distress and lethargic (Arousable and conversant) O rientation/consciousness: lethargic (Arousable and conversant) Eyes: Sclerae: sclerae normal EOM: EOMs intact bilaterally Neck: Neck: Yes no lymphadenopathy, Yes trachea midline and Yes supple Resp: Effort & Inspection: normal respiratory effort and no respiratory distress Auscultation: clear to auscultation bilaterally Cardio: Rate: regular rate Rhythm: regular rhythm Heart sounds: no gallops, no murmurs and no rubs GI: Palpation (GI): Soft to palpation and Other GI palpation findings present ( Nontender) Auscultation: normal bowel sounds Extrem: General: Yes no pedal edema, No clubbing and No cyanosis Objective Data Labs 07/20/24 05:00 07/20/24 05:00 Labs: Laboratory Results - last 24 hr 07/20/24 07/20/24 05:00 05:01 WBC 7.1 RBC 4.39 L Hgb 12.3 L Hct 37.9 L MCV 86.3 MCH 28.0 MCHC 32.5 RDW 13.6 Plt Count 214 MPV 12.3 Immature Gran % (Auto) 0.8 H Neut % (Auto) 71.6 Lymph % (Auto) 17.5 L [place] % (Auto) 10.0 Eos % (Auto) 0.0 Baso % (Auto) 0.1 Lymph # (Auto) 1.3 [place] # (Auto) 0.7 Eos # (Auto) 0.0 Baso # (Auto) 0.0 Abs Immat Gran (auto) 0.06 H Absolute Neuts (auto) 5.1 Absolute Nucleated RBC 0.000 Nucleated RBC % (auto) 0.0 VBG pH 7.42 VBG pCO2 44 VBG pO2 70 VBG HCO3 29 H VBG O2 Saturation 92.0 VBG Base Excess 4.2 Sodium 145 Potassium 4.2 Chloride 111 H Carbon Dioxide 23 Anion Gap 15 BUN 28 H Creatinine 1.26 Estim Creat Clear Calc 63.5 Estimated GFR 58 Random Glucose 129 H Calcium 9.4 Phosphorus 4.8 H Magnesium 2.2 Albumin 3.5 Progress Note: A&P Assessment and plan (1) Catatonia: Status: Acute (2) Schizoaffective disorder: Status: Acute (3) Pulmonary aspiration: Status: Acute Plan Assessment: 59-year-old gentleman with underlying schizoaffective disorder admitted with psychiatric decompensation requiring ECT with hospital course further complicated by pulmonary aspiration, mixed catatonia/agitation requiring ketamine, now monitored in the intensive care unit. Plan: Neuro: MRI brain with no acute findings. Cardiac: No acute issues. Pulmonary: With worsening pulmonary aspiration requiring intubation on 07/17/2024. Extubated 07/18/2024. Continues with intermittent small silent aspirations. Continue to titrate off supplemental oxygen as tolerated. Renal: No acute issues. Endo: No acute issues. GI: No acute issues. ID: Empiric antibiotics for pulmonary aspiration pneumonitis versus pneumonia. Heme/Onc: No acute issues. Psych: Decompensated schizoaffective disorder requiring ECT, with mixed catatonia/agitation, now status post multiple doses of ketamine. Psychiatry service care appreciated. Continue baseline regimen of Clozaril. More awake and conversant this morning. Miscellaneous: No acute issues. Prophylaxis: Lovenox Diet: Tube feeds Quality Stroke Does the patient have a stroke diagnosis?: No VTE Prior VTE?: No VTE Risk Level:: Medical - low VTE Device Contraindication: N/A - Device Ordered VTE Drug Contraindication: N/A - Med Ordered
--- NOTE | 2024-07-20 11:54 | MHC.SL.SWA ---
Speech Pathologist Impression: Risk of Aspiration, Significant Oropharyngeal Dysphagia Risk of Aspiration Due to: Medically Fragile Neurological Condition History of Pneumonia Poor PO Intake Weak Cough Weak Voice Dysphasia Diet Status: No Change Liquid Consistency and Strategies for Safe Swallow: Liquid Intake Recommendation: NPO Solid Food Consistency: Dietary Recommendations: NPO Additional Modifications to Solid Foods: Overt s/s of aspiration with trace PO. Patient w/ NGT, TF started 07/19 Oral Medication Intake: NPO Please contact the pharmacy regarding appropriate crushable or liquid drug formulations that are available whenever modified delivery is recommended. Supervision While Eating and Drinking for Safe Swallow: PO with LIFE ADVISOR Recommendation for Speech: Inpatient Speech Therapy Comment: Re-assess when appropriate. RD following. Frequency/Duration: M-F daily Date Range for Service Req: Timeline to reassess: Leather Tacker Clinican/Clinical Fellow: No Supervisory Statement: I have reviewed and agree with the student/clinical fellow's documentation: N/A Speech Language Pathologist: Nona Whitmore M.A., CCC-LIFE ADVISOR
[2024-07-20] MEDS: Enoxaparin Sodium 40 MG/0.4 ML SYRINGE SUBCUT (14:48)
--- NOTE | 2024-07-20 18:43 | PC.NURSE ---
Assumed care at 0700- pt. drowsy and vague, but A&O to self, time, and place. Pt. tracking, following commands, answering questions appropriately, tremulous at times. B/L wrist restraints trialed off and subsequently D/Cd. Pt. remains SR on tele, HR 70s. Pt. with coarse crackles, moist loose cough, orally suctioning large amount thick cream sputum. Placed on 2L NC. NGT L nare patent, TF running at goal. Pt. incontinent x2 with small mushy brown BMs. Dove remains in place draining cyu. Blanchable redness to B/L buttucks- foam placed for protection. Skin hot to touch, patient afebrile. Q2 oral care and repositioning performed. pt. updated by this RN. Plan of care ongoing.
[2024-07-20] MEDS: cloZAPine 25 MG TABLET PO (21:23)
[2024-07-21] VITALS (26 sets, daily range): BP systolic 123–149; BP diastolic 63–89; PULSE 66–83; RESP 12–22; TEMP 36.1–36.8; O2SAT 90–100; BMI 28.1
[2024-07-21] MEDS: Ampicillin Sodium/Sulbactam Na 3 GM in 0.9 % Sodium Chloride 100 ML IV ×2 (02:30→08:07)
--- NOTE | 2024-07-21 04:37 | PC.NURSE ---
Assumed care at 1900. Patient drowsy but much more alert. Able to speak in full sentences, follow commands, and answer questions. Soft spoken and somewhat garbed from difficulty managing secretions but agreeable to frequent suctioning and oral care. Calm and pleasant and able to make needs known. SR on tele, HR 70s-80s. Generalized non pitting edema noted. Lung sounds coarse and rhonchorous, on 2L NC for SpO2 support. Patient?able to weakly cough but not expectorate secretions. Abdomen soft and round, NG tube to left nare secured and patent with Promote TF running at goal. One episode of vomiting overnight, and 2 soft mushy BMs. Dove catheter remains in place for urinary retention, UOP approx 30-45 mL/hr. Skin is warm and occasionally moist, scattered bruising and scratches, blanchable redness to buttocks. [place] foams in place for protection, barrier cream, and Q2HR repositioning. Patient is able to move all extremities weakly. HOB > 30 degrees r/t risk of aspiration, bed locked in lowest position, bed alarm on, 1-1 sitter at bedside for safety.?
[2024-07-21 04:56] LABS: VBG HCO3 29 mmol/L (22-26); VBG pCO2 47 mmHg; VBG pO2 55 mmHg
[2024-07-21 05:37] LABS: Venous Blood Gas Refer to POC result
[2024-07-21 05:42] LABS: Basophils Percent Auto 0.3 % (0-2); Hematocrit 40.2 % (42.0-52.0); Hemoglobin 12.7 g/dl (14.0-18.0); Imm Gran Abs Auto 0.06 X10*3/uL (0.00-0.03); Imm Gran Pct Auto 0.8 % (0.0-0.4); Lymphocytes Absolute Auto 1.2 X10*3/uL (1.2-4.9); Lymphocytes Percent Auto 16.3 % (20-40); MANUAL DIFF FLAG NO; Mean Corpuscular HGB Conc 31.6 g/dl (31.0-36.0); Mean Corpuscular Hemoglobin 27.7 pg (27.0-33.0); Mean Corpuscular Volume 87.8 fL (80.0-98.0); Mean Platelet Volume 12.5 fL (9.4-12.4); Monocytes Absolute Auto 0.8 X10*3/uL (0.1-1.2); Monocytes Percent Auto 10.2 % (2-11); Neutrophils Absolute Auto 5.4 x10*3/uL (2.0-8.3); Neutrophils Percent Auto 72.4 % (45-73); Platelet Count 209 X10*3/uL (160-400); Red Blood Count 4.58 X10*6/uL (4.60-5.80); Red Cell Distribution Width 13.5 % (11.0-16.0); White Blood Count 7.4 X10*3/uL (4.8-10.8)
[2024-07-21 05:57] LABS: Albumin Level 3.6 g/dL (3.5-5.0); Anion Gap 16 (12-20); Blood Urea Nitrogen 36 mg/dL (9-16); Calcium 9.3 mg/dL (8.4-10.2); Carbon Dioxide 25 mmol/L (22-29); Chloride 110 mmol/L (96-108); Creatinine Clr Calc Pharmacy 61.2; Estimated Glomerular Filt Rate 51; Glucose Random 123 mg/dL (60-115); Magnesium 2.5 mg/dL (1.6-2.6); Phosphorus 4.3 mg/dL (2.7-4.5); Potassium 4.2 mmol/L (3.3-5.1); Sodium 147 mmol/L (135-145)
[2024-07-21] MEDS: 0.9 % Sodium Chloride Flush 3 ML SYRINGE IVFLUSH ×3 (08:07→23:11)
[2024-07-21] MEDS: Memantine HCl 5 MG TABLET PO (08:07)
--- NOTE | 2024-07-21 10:58 | PM.CCPN ---
Subjective Subjective Date of Service: 07/21/24 Interval History: 59-year-old gentleman with underlying history of schizoaffective disorder admitted to psychiatry on 06/21/2024 secondary to worsening psychiatric symptoms for which he was started on ECT with likely post ECT pulmonary aspiration, also with mental state alternating between catatonia and significant agitation requiring ketamine drip. Overnight for 07/16-07/17 with pulmonary aspiration, hypoxia, and respiratory distress requiring intubation and ventilatory support. Extubated 07/18/2024. Received additional ketamine infusion on 07/19/2024. No events overnight. Mental status continues to improve. Critical Care Time (minutes): 0 Physical Exam Vital Signs: Vital Signs: Last Vital Signs Temp 97.0 F 07/21/24 08:00 Pulse 76 07/21/24 10:00 Resp 15 07/21/24 10:00 BP 140/74 H 07/21/24 10:00 Pulse Ox 92 07/21/24 10:00 O2 Del Method Room Air 07/21/24 10:00 O2 Flow Rate 2 07/21/24 06:00 FiO2 80 07/18/24 15:17 Oxygen Flow Rate 1 07/09/24 13:21 BMI result Body Mass Index 28.1 Const: General: no acute distress and lethargic (Arousable and answers appropriate) Orientation/consciousness: lethargic (Arousable and answers appropriate) Eyes: Sclerae: sclerae normal EOM: EOMs intact bilaterally Neck: Neck: Yes no lymphadenopathy, Yes trachea midline and Yes supple Resp: Effort & Inspection: normal respiratory effort and no respiratory distress Auscultation: clear to auscultation bilaterally Cardio: Rate: regular rate Rhythm: regular rhythm Heart sounds: no gallops, no murmurs and no rubs GI: Palpation (GI): Soft to palpation and Other GI palpation findings present ( Nontender) Auscultation: normal bowel sounds Extrem: General: Yes no pedal edema, No clubbing and No cyanosis Objective Data Labs 07/21/24 04:47 07/21/24 04:47 Labs: Laboratory Results - last 24 hr 07/21/24 07/21/24 04:47 04:51 WBC 7.4 RBC 4.58 L Hgb 12.7 L Hct 40.2 L MCV 87.8 MCH 27.7 MCHC 31.6 RDW 13.5 Plt Count 209 MPV 12.5 H Immature Gran % (Auto) 0.8 H Neut % (Auto) 72.4 Lymph % (Auto) 16.3 L [place] % (Auto) 10.2 Eos % (Auto) 0.0 Baso % (Auto) 0.3 Lymph # (Auto) 1.2 [place] # (Auto) 0.8 Eos # (Auto) 0.0 Baso # (Auto) 0.0 Abs Immat Gran (auto) 0.06 H Absolute Neuts (auto) 5.4 Absolute Nucleated RBC 0.000 Nucleated RBC % (auto) 0.0 VBG pH 7.40 VBG pCO2 47 VBG pO2 55 VBG HCO3 29 H VBG O2 Saturation 81.0 VBG Base Excess 4.0 Sodium 147 H Potassium 4.2 Chloride 110 H Carbon Dioxide 25 Anion Gap 16 BUN 36 H Creatinine 1.42 H Estim Creat Clear Calc 61.2 Estimated GFR 51 Random Glucose 123 H Calcium 9.3 Phosphorus 4.3 Magnesium 2.5 Albumin 3.6 Progress Note: A&P Assessment and plan (1) Catatonia: Status: Acute (2) Schizoaffective disorder: Status: Acute (3) Pulmonary aspiration: Status: Acute Plan Assessment: 59-year-old gentleman with underlying schizoaffective disorder admitted with psychiatric decompensation requiring ECT with hospital course further complicated by pulmonary aspiration, mixed catatonia/agitation requiring ketamine, now monitored in the intensive care unit. Plan: Neuro: MRI brain with no acute findings. Cardiac: No acute issues. Pulmonary: With worsening pulmonary aspiration requiring intubation on 07/17/2024. Extubated 07/18/2024. Continues with intermittent small silent aspirations. Titrated down to room air. Renal: No acute issues. Endo: No acute issues. GI: No acute issues. ID: Will monitor off antibiotics at this time. Heme/Onc: No acute issues. Psych: Decompensated schizoaffective disorder requiring ECT, with mixed catatonia/agitation, now status post multiple doses of ketamine. Psychiatry service care appreciated. Continue baseline regimen of Clozaril. Continues to be more awake and appropriate. Miscellaneous: No acute issues. Prophylaxis: Lovenox Diet: Tube feeds Quality Stroke Does the patient have a stroke diagnosis?: No VTE Prior VTE?: No VTE Risk Level:: Medical - low VTE Device Contraindication: N/A - Device Ordered VTE Drug Contraindication: N/A - Med Ordered
[2024-07-21] MEDS: Enoxaparin Sodium 40 MG/0.4 ML SYRINGE SUBCUT (15:03)
--- NOTE | 2024-07-21 16:09 | MHC.CM.PN ---
Pt continues care in ICU: much more alert and awake: slowly responds to questions: D/C Plan: return to IPP once medically stable.
--- NOTE | 2024-07-21 17:57 | PC.NURSE ---
Assumed care at 0700- pt. remains A&O to self, place, time. Vague at times and drowsy, pt. slept in naps through shift. Calm, cooperative, and makes needs known. Pt. remains unrestrained, 1:1 sitter at bedside for pt. safety. SR on tele, HR 60s-70s. Pt on 2LNC PRN to maintain O2 sat >90%. LS coarse throughout, pt. with moist loose cough, orally suctioned intermittently for thick stone sputum. NGT to L nare patent, running TF at goal rate- see order. Dove remains in place, cyu. Repositioning and oral care performed Q2, family at bedside and updated by this RN. Plan of care ongoing.
[2024-07-21] MEDS: cloZAPine 25 MG TABLET PO (20:38)
[2024-07-22] VITALS (15 sets, daily range): BP systolic 118–156; BP diastolic 68–81; PULSE 63–82; RESP 13–20; TEMP 36.6–37.3; O2SAT 94–100; BMI 24.9
[2024-07-22 04:55] LABS: MANUAL DIFF FLAG NO
[2024-07-22 04:56] LABS: Basophils Percent Auto 0.1 % (0-2); Hematocrit 36.7 % (42.0-52.0); Hemoglobin 11.8 g/dl (14.0-18.0); Imm Gran Abs Auto 0.04 X10*3/uL (0.00-0.03); Imm Gran Pct Auto 0.6 % (0.0-0.4); Lymphocytes Absolute Auto 1.6 X10*3/uL (1.2-4.9); Lymphocytes Percent Auto 22.4 % (20-40); Mean Corpuscular HGB Conc 32.2 g/dl (31.0-36.0); Mean Corpuscular Hemoglobin 28.2 pg (27.0-33.0); Mean Corpuscular Volume 87.6 fL (80.0-98.0); Mean Platelet Volume 12.6 fL (9.4-12.4); Monocytes Absolute Auto 0.7 X10*3/uL (0.1-1.2); Monocytes Percent Auto 10.2 % (2-11); Neutrophils Absolute Auto 4.8 x10*3/uL (2.0-8.3); Neutrophils Percent Auto 66.7 % (45-73); Platelet Count 191 X10*3/uL (160-400); Red Blood Count 4.19 X10*6/uL (4.60-5.80); Red Cell Distribution Width 13.4 % (11.0-16.0); White Blood Count 7.1 X10*3/uL (4.8-10.8)
[2024-07-22 05:14] LABS: Albumin Level 3.5 g/dL (3.5-5.0); Anion Gap 15 (12-20); Blood Urea Nitrogen 46 mg/dL (9-16); Carbon Dioxide 24 mmol/L (22-29); Chloride 109 mmol/L (96-108); Creatinine Clr Calc Pharmacy 63.9; Estimated Glomerular Filt Rate 53; Glucose Random 147 mg/dL (60-115); Magnesium 2.4 mg/dL (1.6-2.6); Phosphorus 3.9 mg/dL (2.7-4.5); Potassium 4.1 mmol/L (3.3-5.1); Sodium 144 mmol/L (135-145)
--- NOTE | 2024-07-22 06:39 | PC.NURSE ---
Critical Care Nursing Note? Assumed care of the patient at 1900. Patient alert and oriented. Patient placed on 2LNC prn to maintain oxygen saturation above 90%. NGT to left nare intact/patent, tube feeding infusing per order.?
[2024-07-22] MEDS: 0.9 % Sodium Chloride Flush 3 ML SYRINGE IVFLUSH ×3 (07:42→22:53)
[2024-07-22] MEDS: Memantine HCl 5 MG TABLET PO (09:11)
--- NOTE | 2024-07-22 10:06 | MHC.CLN ---
F/U PT REQUIRES TF FOR NUTRITION SUPPORT R/T PROLONGED POOR PO INTAKE. TOLERATING CURRENT TUBE FEEDING: PROMOTE AT 60ML/HR WITH 240ML FWF Q 4 HRS TO PROVIDE 1440 KCALS (17.8 KCALS/KG IBW), 90.7 G PROTEIN (1.1 G/KG IBW), 2880 ML TOTAL WATER FROM FORMULA AND FLUSHES (35.6 ML/KG IBW). PATIENT WITH HX ASPIRATION. MONITOR TOLERANCE AND LYTES.
--- NOTE | 2024-07-22 10:15 | MHC.CLN ---
F/U PT REQUIRES TF FOR NUTRITION SUPPORT R/T PROLONGED POOR PO INTAKE. TOLERATING CURRENT TUBE FEEDING: PROMOTE AT 60ML/HR WITH 240ML FWF Q 4 HRS TO PROVIDE 1440 KCALS (18.3 KCALS/KG), 90.7 G PROTEIN (1.15 G/KG), 2648 ML TOTAL WATER FROM FORMULA AND FLUSHES (33.7 ML/KG). PATIENT WITH HX ASPIRATION. MONITOR TOLERANCE AND LYTES.
--- NOTE | 2024-07-22 12:08 | P.CDIM_ITS ---
PROVIDER RESPONSE TEXT: To clarify, the appropriate diagnosis supported by the clinical indicators: Other (explain): Unclear, likely related to underlying psychiatric process. QUERY TEXT: PHYSICIAN'S DOCUMENTATION REQUEST Date of Query: 07/22/2024 11:56 AM EDT Patient Name: Benjamin Tenorio Admit Date: 07/09/2024 Dear Donald Trejo MD, A review of the medical record indicates additional documentation may be needed. Please review below and update the documentation accordingly. Clinical Indicators: ICU progress note dated 07/18/24 - MRI brain is pending to evaluate for possible organic cause for und erlying encephalopathy. MRI brain with no acute findings. Patient with underlying schizoaffective disorder admitted with psychiatric decompensation requiring E CT with hospital course further complicated by pulmonary aspiration, mixed catatonia/agitation requiring ketamine. ICU Based on the above, please further specify, in the Progress Notes, the known or suspected type of the documented encephalopathy, if known: Metabolic Toxic Toxic metabolic Anoxic Due to a specified condition (such as UTI, hyponatremia, CVA, etc.) Other (explain) Clinically unable to determine (explain) Thank you, Manasa Dean, CCS, CDIS Use of terms such as suspected, likely, concern for, or probable (associated with a specific diagnosi s that is being evaluated, monitored, or treated as if it exists) are acceptable and can be coded in the inpatient se tting, when documented at the time of discharge. Please use your independent medical judgment in providing your response. THIS QUERY IS PART OF THE PERMANENT MEDICAL RECORD
--- NOTE | 2024-07-22 12:10 | PM.CCPN ---
Subjective Subjective Date of Service: 07/22/24 Interval History: 59-year-old gentleman with underlying history of schizoaffective disorder admitted to psychiatry on 06/21/2024 secondary to worsening psychiatric symptoms for which he was started on ECT with likely post ECT pulmonary aspiration, also with mental state alternating between catatonia and significant agitation requiring ketamine drip. Overnight for 07/16-07/17 with pulmonary aspiration, hypoxia, and respiratory distress requiring intubation and ventilatory support. Extubated 07/18/2024. Received additional ketamine infusion on 07/19/2024. No events overnight. Mental status continues to improve. Continues to fail swallow evaluation. Critical Care Time (minutes): 0 Physical Exam Vital Signs: Vital Signs: Last Vital Signs Temp 98.6 F 07/22/24 12:00 Pulse 66 07/22/24 12:00 Resp 17 07/22/24 12:00 BP 145/72 H 07/22/24 12:00 Pulse Ox 100 07/22/24 12:00 O2 Del Method Nasal Cannula 07/22/24 12:00 O2 Flow Rate 2 07/22/24 12:00 FiO2 80 07/18/24 15:17 Oxygen Flow Rate 1 07/09/24 13:21 BMI result Body Mass Index 24.9 Const: General: no acute distress and lethargic (Arousable and answers appropriately) Orientation/consciousness: lethargic (Arousable and answers appropriately) Eyes: Sclerae: sclerae normal EOM: EOMs intact bilaterally Neck: Neck: Yes no lymphadenopathy, Yes trachea midline and Yes supple Resp: Effort & Inspection: normal respiratory effort and no respiratory distress Auscultation: clear to auscultation bilaterally Cardio: Rate: regular rate Rhythm: regular rhythm Heart sounds: no gallops, no murmurs and no rubs GI: Palpation (GI): Soft to palpation and Other GI palpation findings present ( Nontender) Auscultation: normal bowel sounds Extrem: General: Yes no pedal edema, No clubbing and No cyanosis Objective Data Labs 07/22/24 04:42 07/22/24 04:41 Labs: Laboratory Results - last 24 hr 07/22/24 07/22/24 04:41 04:42 WBC 7.1 RBC 4.19 L Hgb 11.8 L Hct 36.7 L MCV 87.6 MCH 28.2 MCHC 32.2 RDW 13.4 Plt Count 191 MPV 12.6 H Immature Gran % (Auto) 0.6 H Neut % (Auto) 66.7 Lymph % (Auto) 22.4 [place] % (Auto) 10.2 Eos % (Auto) 0.0 Baso % (Auto) 0.1 Lymph # (Auto) 1.6 [place] # (Auto) 0.7 Eos # (Auto) 0.0 Baso # (Auto) 0.0 Abs Immat Gran (auto) 0.04 H Absolute Neuts (auto) 4.8 Absolute Nucleated RBC 0.000 Nucleated RBC % (auto) 0.0 Sodium 144 Potassium 4.1 Chloride 109 H Carbon Dioxide 24 Anion Gap 15 BUN 46 H Creatinine 1.36 Estim Creat Clear Calc 63.9 Estimated GFR 53 Random Glucose 147 H Calcium 9.0 Phosphorus 3.9 Magnesium 2.4 Albumin 3.5 Progress Note: A&P Assessment and plan (1) Catatonia: Status: Acute (2) Schizoaffective disorder: Status: Acute (3) Pulmonary aspiration: Status: Acute Plan Assessment: 59-year-old gentleman with underlying schizoaffective disorder admitted with psychiatric decompensation requiring ECT with hospital course further complicated by pulmonary aspiration, mixed catatonia/agitation requiring ketamine, now monitored in the intensive care unit. Plan: Neuro: MRI brain with no acute findings. Cardiac: No acute issues. Pulmonary: With worsening pulmonary aspiration requiring intubation on 07/17/2024. Extubated 07/18/2024. Continues with intermittent small silent aspirations. Titrated down to room air. Renal: No acute issues. Endo: No acute issues. GI: No acute issues. ID: Continue to monitor off antibiotics at this time. Heme/Onc: No acute issues. Psych: Decompensated schizoaffective disorder requiring ECT, with mixed catatonia/agitation, now status post multiple doses of ketamine. Psychiatry service care appreciated. Continue baseline regimen of Clozaril. Continues to be more awake and appropriate. Miscellaneous: No acute issues. Prophylaxis: Lovenox Diet: Tube feeds Quality Stroke Does the patient have a stroke diagnosis?: No VTE Prior VTE?: No VTE Risk Level:: Medical - low VTE Device Contraindication: N/A - Device Ordered VTE Drug Contraindication: N/A - Med Ordered
--- NOTE | 2024-07-22 12:33 | MHC.SL.SWA ---
Speech Pathologist Impression: Moderate oropharyngeal dysphagia in setting of weakness, deconditioning Risk of Aspiration Due to: Medically Fragile Neurological Condition History of Pneumonia Poor PO Intake Weak Cough Weak Voice Dysphasia Diet Status: Recommend NPO, oral swabs for moisture. SHANK SCOURER re-assessment daily. Liquid Consistency and Strategies for Safe Swallow: Liquid Intake Recommendation: NPO Liquid Intake Strategies: Solid Food Consistency: Dietary Recommendations: NPO Additional Modifications to Solid Foods: FOLLOWED BY RD: PT REQUIRES TF FOR NUTRITION SUPPORT R/T PROLONGED POOR PO INTAKE- TF started 07/19 Oral Medication Intake: NPO Please contact the pharmacy regarding appropriate crushable or liquid drug formulations that are available whenever modified delivery is recommended. Compensatory Strategies and Precautions to be Taken for Safe Swallow: Sitting Upright (90 deg) Small Bites and Sips Rate of Ingestion Change Supervision While Eating and Drinking for Safe Swallow: PO with SHANK SCOURER Foods to Avoid: Swallowing Recommended Treatments: Compens. Strategy Educat. Recommendation for Speech: Inpatient Speech Therapy Comment: Pt seen for dysphagia treatment, s/p extubation. Pt has NG tube feeds. Pt is known to SHANK SCOURER, was on modified diet prior to intubation d/t poor awareness and oropharyngeal dyscoordination in setting of cognitive limitations. Pt was able to follow simple commands/cues today, and voice when speaking. Voicing congested, cough triggered upon speaking. Oral swabs administered, pt followed cues to open mouth, pt did not bite swab this time as he had done previously. Pt given ice chip for oral moisture. Pt observed to chew ice chip with adequate mandibular coordination. Pt swallowed volitionally and reflexively, prior to ice chip presentation and upon ice chip melting. Pt coughed immediately upon trigger of pharyngeal swallow, laryngeal elevation incomplete. Pt too weak for PO at this time, but anticipate pt will resume PO within the next few days if his mental status remains consistent. MD notified, SHANK SCOURER continues to follow. Frequency/Duration: M-F daily Date Range for Service Req: Timeline to reassess: Ramp Boss Clinican/Clinical Fellow: No Supervisory Statement: I have reviewed and agree with the student/clinical fellow's documentation: N/A Speech Language Pathologist: Francia Pink M.S., [facility]ANK [facility]
--- NOTE | 2024-07-22 12:46 | PM.EVENT ---
Event Note Date of Service: 07/22/24 Event Note: ICU transfer. Discussed with ICU attending 59 year old man admitted to ICU after aspiration event after ECT . Due to Catatonia and agitation patient was treated with Ketamine drip. He was intubated 07/17 and extubated 07/18. Dysphagia NGT in place with tube feeds Speech following for swallow evaluations Depression with decompensated schizophrenia, catatonia and agitation psychiatric consultation Continue Clozaril Time Spent With Patient Time: Total time managing care of this patient today ____ minutes.
--- NOTE | 2024-07-22 14:31 | MHC.CM.PN ---
PER REVIEW OF EMR, PT WILL BE DOWNGRADED TO IMC FROM ICU. PLAN TO RETURN TO I/P PSYCH WHEN MEDICALLY CLEARED. CM WILL CONTINUE TO FOLLOW.
[2024-07-22] MEDS: Enoxaparin Sodium 40 MG/0.4 ML SYRINGE SUBCUT (14:37)
[2024-07-22] MEDS: cloZAPine 25 MG TABLET PO (22:53)
[2024-07-23] VITALS (12 sets, daily range): BP systolic 122–152; BP diastolic 79–96; PULSE 90–94; RESP 12–27; TEMP 36.2–36.8; O2SAT 90–95; BMI 24.9
[2024-07-23] MEDS: Memantine HCl 5 MG TABLET PO (08:03)
[2024-07-23] MEDS: 0.9 % Sodium Chloride Flush 3 ML SYRINGE IVFLUSH ×2 (08:07→15:37)
--- NOTE | 2024-07-23 10:56 | MHC.CLN ---
F/U PT TRANSFERRED FROM ICU TO MEDICAL FLOOR AIR VALVE MECHANIC RECOMMENDS PT TO REMAIN NPO REVIEWED LABS PT'S CURRENT TF OF PROMOTE AT 60ML/HR WITH 240ML FWF Q 4 HRS DOES NOT MEET ESTIMATED KCAL NEEDS RECOMMEND SWITCHING TF FORMULA TO JEVITY 1.0 AT MAX GOAL RATE 75ML/HR WITH 240ML FREE WATER Q 8 HRS TO PROVIDE 1908KCALS (25KCALS/KG), 80G PROTEIN (1.06G/KG), 2223ML TOTAL WATER FROM FORMULA AND FLUSHES (30ML/KG) MONITOR TOLERANCE AND LYTES
--- NOTE | 2024-07-23 11:53 | MHC.SL.SWA ---
Risk of Aspiration Due to: Medically Fragile Neurological Condition History of Pneumonia Poor PO Intake Weak Cough Weak Voice Dysphasia Diet Status: Continue NPO Liquid Consistency and Strategies for Safe Swallow: Liquid Intake Recommendation: NPO Solid Food Consistency: Dietary Recommendations: NPO Oral Medication Intake: NPO Please contact the pharmacy regarding appropriate crushable or liquid drug formulations that are available whenever modified delivery is recommended. Compensatory Strategies and Precautions to be Taken for Safe Swallow: Sitting Upright (90 deg) Supervision While Eating and Drinking for Safe Swallow: PO with [employer] [employer] Recommendation for Speech: Inpatient Speech Therapy Comment: Pt re-evaluated for swallow on this date. Recommend pt continue NPO. Ice chips OK w/ RN supervision following oral care. Provide frequent oral care. HoB raised above 30 degrees at all times to reduce risk of aspiration. This is judged to be the safest and least restrictive diet at this time d/t difficulty managing secretions, weak cough, wet voice/breath. MD, RN, RD notified. Pt to be re-evaluated by [employer] tomorrow. Frequency/Duration: M-F daily [employer] Clinican/Clinical Fellow: No Supervisory Statement: I have reviewed and agree with the student/clinical fellow's documentation: N/A Speech Language Pathologist: Lilliana Montenegro M.A., [facility] [employer] [employer] [facility]
--- NOTE | 2024-07-23 12:21 | PM.CCN ---
Critical Care Event Note Summary Date of Service: 07/23/24 Code activated: No Narrative: Patient being transferred to the intensive care unit for close monitoring for repeat ketamine infusion per Psychiatry request for underlying catatonia. Critical Care Time (minutes): 0
--- NOTE | 2024-07-23 12:34 | HO.PM.IMPN ---
Subjective Subjective Date of Service: 07/23/24 Review of Systems Follow up ICU transfer for aspiration pneumonia more awake today, stated he was hungry Physical Exam Vital Signs: Vital Signs: Last Vital Signs Temp 97.7 F 07/23/24 07:38 Pulse 94 07/23/24 07:38 Resp 20 07/23/24 07:38 BP 135/79 07/23/24 07:38 Pulse Ox 94 07/23/24 07:38 O2 Del Method Room Air 07/23/24 07:38 O2 Flow Rate 2 07/22/24 12:00 FiO2 80 07/18/24 15:17 Oxygen Flow Rate 1 07/09/24 13:21 BMI result Body Mass Index 24.9 Appearing in no acute distress lung sounds are clear to auscultation heart regular rate rhythm, clear S1, S2 positive bowel sounds, abdomen is soft, nontender, NGT neuro patient is alert x3, no focal deficits Objective Data Active Medications Clozapine (Clozapine 25 Mg Tablet) 25 mg PO BEDTIME [facility] Last Admin: 07/22/24 22:53 Dose: 25 mg Documented By: ALYSSIA Enoxaparin Sodium (Enoxaparin Sodium 40 Mg/0.4 Ml Syringe) 40 mg SUBCUT Q24H [facility] Last Admin: 07/22/24 14:37 Dose: 40 mg Documented By: ALIDA Labetalol HCl (Labetalol Hcl 100 Mg/20 Ml Vial) 10 mg IVPUSH Q10M PRN PRN Reason: SBP > 160 Last Admin: 07/20/24 06:13 Dose: 10 mg Documented By: LORI Memantine (Memantine Hcl 5 Mg Tablet) 5 mg PO DAILY [facility] Last Admin: 07/23/24 08:03 Dose: 5 mg Documented By: JESUS Sodium Chloride (0.9 % Sodium Chloride Flush 3 Ml Syringe) 3 ml IVFLUSH QSHIFT [facility] Last Admin: 07/23/24 08:07 Dose: 3 ml Documented By: JESUS Labs 07/22/24 04:42 07/22/24 04:41 Assessment and Plan (1) Catatonia: Status: Acute (2) Schizoaffective disorder: Status: Acute (3) Pulmonary aspiration: Status: Acute Plan 59 year old man admitted to ICU after aspiration event after ECT . Due to Catatonia and agitation patient was treated with Ketamine drip. He was intubated 07/17 and extubated 07/18. Depression with decompensated schizophrenia, catatonia and agitation psychiatric consultation Continue Clozaril if able to give through NG tube as patient was NPO at this Plan to tx back to ICU for monitoring during ketamine tx Aspiration PNA requiring ICU and intubation s/p ampicillin Maintaining on room air Dysphagia NGT in place with tube feeds Speech following> continue NPO with tube feeds meds through NGT if possible DVT prophylaxis with Lovenox Dispo physical therapy consultation when medical condition improves Quality Stroke Does the patient have a stroke diagnosis?: No VTE Prior VTE?: No VTE Risk Level:: Medical - low VTE Device Contraindication: N/A - Device Ordered VTE Drug Contraindication: N/A - Med Ordered
[2024-07-23] MEDS: Enoxaparin Sodium 40 MG/0.4 ML SYRINGE SUBCUT (15:37)
--- NOTE | 2024-07-23 17:33 | HO.WOUND ---
Wound Consult: Initial 59yr old?male admitted to [facility] on 07/09/24 - See progress notes and H&P for detailed history.? Wound consult placed for Sacrum.? Patient agreeable to assessment and photo documentation.? Sacrum Etiology: ?Deep Tissue Injury ?Present on Admission Wound Bed: red open tissue with moist red tissue - dark red purple nonblanchabel tissue Drainage / Odor: none noted Edges: ? irregular [place] wound: ?pink blanchable tissue No Induration, Fluctuance or Warmth noted Pain: painful to palpation Goals of Treatment: ? Off load pressure - foam to allow for moist wound healing . Recommendations: 1. Turn and Reposition every 2 hours and as needed for patient comfort.? Use pillows or wedges to support off loading positions. 2. Off Load all bony prominences with use of pillows and heel boots if needed.? Apply Preventative foams where needed. ? 3. Monitor for incontinence and moisture control, use barrier creams when needed for prevention and treatment. 4. Provide adequate and supplemental nutrition.? 5. Order low air loss mattress. 6. When applicable maintain blood glucose levels per Providers order. Sacrum - Off Load Pressure with Q2 hr turns and use of pillows - Apply skin prep to wound bed and periwound. Apply with foam dressing to aid in off loading and protection from friction. Change every 3 days and PRN. Re-consult wound care Nurse for wound deterioration or wound changes.
[2024-07-23] MEDS: cloZAPine 25 MG TABLET PO (20:24)
[2024-07-24] VITALS (25 sets, daily range): BP systolic 105–156; BP diastolic 50–93; PULSE 67–91; RESP 13–26; TEMP 36.1–37.1; O2SAT 91–99; BMI 25.0
[2024-07-24] MEDS: 0.9 % Sodium Chloride Flush 3 ML SYRINGE IVFLUSH ×2 (00:06→15:30)
--- NOTE | 2024-07-24 07:51 | PC.NURSE ---
Addendum entered by Sathish Blue RN 07/24/24 14:35: Pt is now alert and awake, following commands Addendum entered by Sathish Blue RN 07/24/24 11:54: Pt's neuro assessment changed compared to this AM. pt obtunded. Md informed pt presentation change occured post ketamine administration Addendum entered by Sathish Blue RN 07/24/24 10:39: contacted pharmacy and spoke with MD regarding Ketamine infusion. Per MD infuse ketamine over 1 hr. pharmacy contacted and verified, ok to administer IV ketamine over 1hr despite order stating ~20cc/hr Addendum entered by Sathish Blue RN 07/24/24 09:14: MD was informed of NGT. CXR was obtained and TF restarted Original Note: upon assessment, NGT noted to be partially pulled out while NGT holster was in place ? malfunction with clip. TF were placed on hold, NGT advanced and CXR ordered to confirm placement. New NGT securement device placed w/ tape to reinforce.
[2024-07-24 08:33] LABS: MANUAL DIFF FLAG NO
[2024-07-24 08:40] LABS: Basophils Percent Auto 0.1 % (0-2); Hematocrit 39.5 % (42.0-52.0); Hemoglobin 12.7 g/dl (14.0-18.0); Imm Gran Abs Auto 0.06 X10*3/uL (0.00-0.03); Imm Gran Pct Auto 0.6 % (0.0-0.4); Lymphocytes Absolute Auto 1.3 X10*3/uL (1.2-4.9); Lymphocytes Percent Auto 13.1 % (20-40); Mean Corpuscular HGB Conc 32.2 g/dl (31.0-36.0); Mean Corpuscular Hemoglobin 28.2 pg (27.0-33.0); Mean Corpuscular Volume 87.6 fL (80.0-98.0); Mean Platelet Volume 12.9 fL (9.4-12.4); Monocytes Absolute Auto 1.1 X10*3/uL (0.1-1.2); Neutrophils Absolute Auto 7.6 x10*3/uL (2.0-8.3); Neutrophils Percent Auto 75.2 % (45-73); Platelet Count 195 X10*3/uL (160-400); Red Blood Count 4.51 X10*6/uL (4.60-5.80); Red Cell Distribution Width 13.5 % (11.0-16.0); White Blood Count 10.1 X10*3/uL (4.8-10.8)
[2024-07-24 08:50] LABS: Anion Gap 13 (12-20); Blood Urea Nitrogen 55 mg/dL (9-16); Calcium 9.5 mg/dL (8.4-10.2); Carbon Dioxide 26 mmol/L (22-29); Chloride 108 mmol/L (96-108); Estimated Glomerular Filt Rate 52; Glucose Random 145 mg/dL (60-115); Magnesium 2.5 mg/dL (1.6-2.6); Phosphorus 3.8 mg/dL (2.7-4.5); Potassium 4.2 mmol/L (3.3-5.1); Sodium 143 mmol/L (135-145)
[2024-07-24] MEDS: Memantine HCl 5 MG TABLET PO ×2 (09:19→20:58)
--- NOTE | 2024-07-24 09:56 | MHC.SLORD ---
Speech Language Pathology Order Status: BUCKLE SEWER MACHINE to see pt this morning, pt did not wake to sternal rub or speech. MD consulted. BUCKLE SEWER MACHINE to re-evaluate swallow when indicated.
--- NOTE | 2024-07-24 10:04 | MHC.CM.PN ---
Pt is being followed by psych for Ketamine administration secondary to tx of atypical catatonia. No plans to transfer out of ICU today. Pt will need a repeat psych eval when medically stable for determination of INPT placement.
--- NOTE | 2024-07-24 10:13 | P.CNPS_ITS ---
History of Present Illness Date of Service: 07/24/2024 Chief Complaint: catatonia Reason for Consult: Psychiatric management status post ICU transfer Requesting physician: Donald Trejo Sources of Information: patient interviewed and chart reviewed HPI Narrative: The patient is a 59-year-old male history of schizoaffective disorder recurrent catatonia status post ICU transfer. Patient has an NG-tube IV for hydration and Dove. He normally has been treated with clozapine and ECT. With catatonia he became increasingly respiratory compromised he had been intubated.. Patient has had some bouts of improvement increase alertness and verbal reaction status post ketamine infusion which we have been doing off label given that this is less of a risk then ECT given his respiratory status. Literature has been reviewed. Memantine also being used off-label for catatonia literature reviewed Past Psychiatric History: Inpatient: multiple in the past. h/o ECT for catatonia. OP: [facility] Past medication trials: clozaril, ativan, sertraline, olanzapine. Personal & Social History: Patient on disability lives alone father healthcare proxy does have a [employer] team. Patient had been driving and working few months ago [facility] Medical History (Updated 08/06/24 @ 10:55 by Steven Huerta MD) Tardive dyskinesia Hospital discharge follow-up Mild sleep apnea Nocturnal hypoxia Routine medical exam Joint inflammation of right hand and wrist Status post fall Adult general medical exam Screening for colon cancer Screening for prostate cancer Cough BPH (benign prostatic hyperplasia) Surgical History History of colonoscopy (~06/15/21) History of tooth extraction History of root canal procedure Family History: unknown Social History: lives independently, works, drives. apartment in [place]. Trauma History: unknown Diagnostics Vital Signs (24Hr): Vital Signs - 24 hr 07/23/24 12:00 07/23/24 16:00 07/23/24 17:00 Temperature 97.7 F 97.1 F Pulse Rate 92 91 94 Respiratory Rate 20 13 23 H Blood Pressure 141/91 H 147/96 H 152/91 H Pulse Oximetry 94 93 92 Oxygen Delivery Method Room Air Room Air Room Air 07/23/24 18:00 07/23/24 19:00 07/23/24 20:00 Temperature 98.2 F Pulse Rate 93 91 90 Respiratory Rate 19 20 12 Blood Pressure 138/95 H 146/89 H 139/95 H Pulse Oximetry 92 90 L 93 Oxygen Delivery Method Room Air Room Air Room Air 07/23/24 21:00 07/23/24 21:00 07/23/24 22:00 Temperature Pulse Rate 91 92 92 Respiratory Rate 24 H 27 H 20 Blood Pressure 122/80 122/80 130/84 Pulse Oximetry 93 92 91 L Oxygen Delivery Method Room Air Room Air Room Air 07/23/24 23:00 07/23/24 23:59 07/24/24 00:57 Temperature 97.8 F Pulse Rate 90 91 Respiratory Rate 22 H 20 Blood Pressure 137/84 137/84 Pulse Oximetry 92 92 Oxygen Delivery Method Room Air Room Air 07/24/24 01:00 07/24/24 02:00 07/24/24 03:00 Temperature Pulse Rate 90 90 85 Respiratory Rate 20 21 H 16 Blood Pressure 132/93 H 155/90 H 146/91 H Pulse Oximetry 92 92 93 Oxygen Delivery Method Room Air Room Air Room Air 07/24/24 03:50 07/24/24 04:59 07/24/24 06:00 Temperature Pulse Rate 85 82 83 Respiratory Rate 14 17 Blood Pressure 156/89 H 143/89 H 144/90 H Pulse Oximetry 92 91 L 92 Oxygen Delivery Method Room Air Room Air Room Air 07/24/24 07:00 07/24/24 08:00 07/24/24 09:00 Temperature Pulse Rate 82 77 76 Respiratory Rate 26 H 18 20 Blood Pressure 131/81 127/68 120/67 Pulse Oximetry 95 93 94 Oxygen Delivery Method Room Air Room Air Room Air BMI result Body Mass Index 25.0 Labs 08/02/24 09:18 08/02/24 09:18 Labs: Laboratory Results - last 48 hr 07/24/24 08:24 WBC 10.1 RBC 4.51 L Hgb 12.7 L Hct 39.5 L MCV 87.6 MCH 28.2 MCHC 32.2 RDW 13.5 Plt Count 195 MPV 12.9 H Immature Gran % (Auto) 0.6 H Neut % (Auto) 75.2 H Lymph % (Auto) 13.1 L [place] % (Auto) 11.0 Eos % (Auto) 0.0 Baso % (Auto) 0.1 Lymph # (Auto) 1.3 [place] # (Auto) 1.1 Eos # (Auto) 0.0 Baso # (Auto) 0.0 Abs Immat Gran (auto) 0.06 H Absolute Neuts (auto) 7.6 Absolute Nucleated RBC 0.000 Nucleated RBC % (auto) 0.0 Sodium 143 Potassium 4.2 Chloride 108 Carbon Dioxide 26 Anion Gap 13 BUN 55 H Creatinine 1.38 Estim Creat Clear Calc 58.0 Estimated GFR 52 Random Glucose 145 H Calcium 9.5 Phosphorus 3.8 Magnesium 2.5 Imaging Radiology Impressions: ITS Impressions Chest X-Ray 07/11/24 11:00 IMPRESSION: Nasogastric tube unchanged in position. No acute cardiopulmonary abnormality. Electronically signed by: Jacob Hope MD 07/11/2024 11:27 AM EDT RP Chest X-Ray 07/19/24 12:20 IMPRESSION: NG tube with sidehole above the diaphragm. This device should be advanced 6 cm for optimal placement. Electronically signed by: Reinaldo Montes MD 07/19/2024 01:00 PM EDT RP Chest X-Ray 07/19/24 12:35 IMPRESSION: Well-positioned NG tube. No active pulmonary disease. Electronically signed by: Reinaldo Montes MD 07/19/2024 01:02 PM EDT RP Chest X-Ray 07/24/24 08:00 IMPRESSION: 1. NG tube positioned as detailed. Tip is likely within the proximal duodenum. Sidehole is likely within the antrum. 2. Lungs remain clear with minimal left base atelectasis. No pneumothorax. 3. Mildly gas distended loops of predominantly colon in the upper abdomen. Electronically signed by: Reinaldo Montes MD 07/24/2024 08:56 AM EDT RP Mental Status Exam Mental Status Exam Narrative: Patient with NG tube and Dove. Some periods of irritability agitation noted. Responded to name psychomotor retardation and long pause be for answering was not aggressive did not respond when asked about hallucinations SI or HI mostly stared blankly when asked more complex question did respond to his name knew he was in hospital some restlessness Medications Medications Current Medications Clozapine (Clozapine 25 Mg Tablet) 50 mg PO BEDTIME [facility] Enoxaparin Sodium (Enoxaparin Sodium 40 Mg/0.4 Ml Syringe) 40 mg SUBCUT Q24H [facility] Last Admin: 07/23/24 15:37 Dose: 40 mg Ketamine HCl 500 mg/ Sodium (Chloride) 255 mls @ 20.094 mls/hr IVCONT .[id number] [facility] Stop: 07/24/24 11:00 Labetalol HCl (Labetalol Hcl 100 Mg/20 Ml Vial) 10 mg IVPUSH Q10M PRN PRN Reason: SBP > 160 Last Admin: 07/20/24 06:13 Dose: 10 mg Lorazepam (Lorazepam 1 Mg Tablet) 1 mg PO BEDTIME [facility] Melatonin (Melatonin 3 Mg Tablet) 6 mg PO BEDTIME [facility] Memantine (Memantine Hcl 5 Mg Tablet) 5 mg PO BID [facility] Sodium Chloride (0.9 % Sodium Chloride Flush 3 Ml Syringe) 3 ml IVFLUSH QSHIFT [facility] Last Admin: 07/24/24 07:13 Dose: Not Given Allergies Allergies Allergy/AdvReac Type Severity Reaction Status Date / Time No Known Allergies [NKA] Allergy Unknown NONE Verified 06/19/24 20:43 Assessment & Plan Assessment & Plan (1) Schizoaffective disorder: Status: Acute Code(s): F25.9 - Schizoaffective disorder, unspecified (2) Catatonia: Status: Acute Code(s): F06.1 - Catatonic disorder due to known physiological condition (3) Urinary retention with incomplete bladder emptying: Status: Acute Code(s): R33.9 - Retention of urine, unspecified Plan Continue ketamine for catatonia clozapine patient will need extensive rehab has lost a lot of weight not been able to ambulate. ECT remains a consideration however would need intubation and in the OR and given patient's current respiratory status would try and avoid and this was discussed with anesthesiology. Will need eventual transmission plan to rehab setting Total time managing care of this patient today _45___ minutes. Informed Consent: does not understand
--- NOTE | 2024-07-24 10:21 | P.PNCC_ITS ---
Subjective Subjective Date of Service: 07/24/24 Interval History: 59-year-old gentleman with underlying history of schizoaffective disorder admitted to psychiatry on 06/21/2024 secondary to worsening psychiatric symptoms for which he was started on ECT with likely post ECT pulmonary aspiration, also with mental state alternating between catatonia and significant agitation requiring ketamine drip. Overnight for 07/16-07/17 with pulmonary aspiration, hypoxia, and respiratory distress requiring intubation and ventilatory support. Extubated 07/18/2024. Received additional ketamine infusion on 07/19/2024. Transferred again to ICU on 07/23/2024 for additional ketamine infusions. No events overnight. Reversal of day/night cycle. Critical Care Time (minutes): 0 Physical Exam 2 Vital Signs: Vital Signs: Last Vital Signs Temp 97.8 F 07/24/24 00:57 Pulse 77 07/24/24 10:00 Resp 22 H 07/24/24 10:00 BP 124/64 07/24/24 10:00 Pulse Ox 92 07/24/24 10:00 O2 Del Method Room Air 07/24/24 10:00 O2 Flow Rate 2 07/22/24 12:00 FiO2 80 07/18/24 15:17 Oxygen Flow Rate 1 07/09/24 13:21 BMI result Body Mass Index 25.0 Const: General: no acute distress and lethargic (Arousable and answers appropriately) Orientation/consciousness: lethargic (Arousable and answers appropriately) Eyes: Sclerae: sclerae normal EOM: EOMs intact bilaterally Neck: Neck: Yes no lymphadenopathy, Yes trachea midline and Yes supple Resp: Effort & Inspection: normal respiratory effort and no respiratory distress Auscultation: clear to auscultation bilaterally Cardio: Rate: regular rate Rhythm: regular rhythm Heart sounds: no gallops, no murmurs and no rubs GI: Palpation (GI): Soft to palpation and Other GI palpation findings present ( Nontender) Auscultation: normal bowel sounds Extrem: General: Yes no pedal edema, No clubbing and No cyanosis Objective Data Labs 07/24/24 08:24 07/24/24 08:24 Labs: Laboratory Results - last 24 hr 07/24/24 08:24 WBC 10.1 RBC 4.51 L Hgb 12.7 L Hct 39.5 L MCV 87.6 MCH 28.2 MCHC 32.2 RDW 13.5 Plt Count 195 MPV 12.9 H Immature Gran % (Auto) 0.6 H Neut % (Auto) 75.2 H Lymph % (Auto) 13.1 L [place] % (Auto) 11.0 Eos % (Auto) 0.0 Baso % (Auto) 0.1 Lymph # (Auto) 1.3 [place] # (Auto) 1.1 Eos # (Auto) 0.0 Baso # (Auto) 0.0 Abs Immat Gran (auto) 0.06 H Absolute Neuts (auto) 7.6 Absolute Nucleated RBC 0.000 Nucleated RBC % (auto) 0.0 Sodium 143 Potassium 4.2 Chloride 108 Carbon Dioxide 26 Anion Gap 13 BUN 55 H Creatinine 1.38 Estim Creat Clear Calc 58.0 Estimated GFR 52 Random Glucose 145 H Calcium 9.5 Phosphorus 3.8 Magnesium 2.5 Progress Note: A&P Assessment and plan (1) Catatonia: Status: Acute (2) Schizoaffective disorder: Status: Acute (3) Pulmonary aspiration: Status: Acute Plan Assessment: 59-year-old gentleman with underlying schizoaffective disorder admitted with psychiatric decompensation requiring ECT with hospital course further complicated by pulmonary aspiration, mixed catatonia/agitation requiring ketamine, now monitored in the intensive care unit. Plan: Neuro: MRI brain with no acute findings. Cardiac: No acute issues. Pulmonary: With worsening pulmonary aspiration requiring intubation on 07/17/2024. Extubated 07/18/2024. Continues with intermittent small silent aspirations. Titrated down to room air. Continues to feel swallow evaluation. Renal: No acute issues. Endo: No acute issues. GI: No acute issues. ID: No acute issues. Heme/Onc: No acute issues. Psych: Decompensated schizoaffective disorder requiring ECT, with mixed catatonia/agitation, now status post multiple doses of ketamine. Psychiatry service care appreciated. Continue baseline regimen of Clozaril. Continues to be more awake and appropriate. Transferred to intensive care unit for additional ketamine therapy per Psychiatry recommendations. Miscellaneous: No acute issues. Prophylaxis: Lovenox Diet: Tube feeds Quality Stroke Does the patient have a stroke diagnosis?: No VTE Prior VTE?: No VTE Risk Level:: Medical - low VTE Device Contraindication: N/A - Device Ordered VTE Drug Contraindication: N/A - Med Ordered
[2024-07-24] MEDS: Ketamine HCl 500 MG in 0.9 % Sodium Chloride 250 ML 20.09 MG IVCONT (10:29)
[2024-07-24 10:49] LABS: Rheumatoid Factor < 13.0 IU/mL (<15.0)
--- NOTE | 2024-07-24 11:06 | MHC.CLN ---
F/U PT TRANSFERRED BACK TO ICU INFORMATION SECURITY MANAGER RECOMMENDS PT TO REMAIN NPO 07/23/24 REVIEWED LABS CONTINUE TF FORMULA JEVITY 1.0 AT MAX GOAL RATE 75ML/HR WITH 240ML FREE WATER Q 8 HRS PROVIDES 1908KCALS (25KCALS/KG), 80G PROTEIN (1.06G/KG), 2223ML TOTAL WATER FROM FORMULA AND FLUSHES (30ML/KG) MONITOR TOLERANCE AND LYTES PT WITH NEW DTI SACRUM-CAN ADD 30ML PROSOURCE X1 PER DAY TO PROMTOE WOUND HEALING SEE FULL CLINICAL NUTRITION ASSESSMENT
[2024-07-24 11:12] LABS: Erythrocyte Sedimentation Rate 38 MM/HR (0-15)
--- NOTE | 2024-07-24 13:32 | P.CDIM_ITS ---
PROVIDER RESPONSE TEXT: To clarify, the appropriate diagnosis supported by the clinical indicators: Deep tissue injury sacrum: present QUERY TEXT: PHYSICIAN'S DOCUMENTATION REQUEST Date of Query: 07/24/2024 10:03 AM EDT Patient Name: Benjamin Tenorio Admit Date: 07/09/2024 Dear Idania Wilkinson SWEATBAND PERFORATOR, A review of the medical record indicates additional documentation may be needed. Please review below and update the documentation accordingly. Clinical Indicators: Wound care notes 07/23/24 - Deep tissue injury sacrum, Present on admission. Red open tissue with moist red tissue - dark red purple non-blanchable tissue. Off load pressure - foam to allow for moisture wound healing. Based on the above, could you please provide further information regarding the ulcer/wound/injury: Deep tissue injury sacrum possible, probable, suspected etc. Other specified Other (explain) Clinically unable to determine (explain) Thank you, Manasa Dean, CCS, CDIS Use of terms such as suspected, likely, concern for, or probable (associated with a specific diagnosi s that is being evaluated, monitored, or treated as if it exists) are acceptable and can be coded in the inpatient se tting, when documented at the time of discharge. Please use your independent medical judgment in providing your response. THIS QUERY IS PART OF THE PERMANENT MEDICAL RECORD
[2024-07-24] MEDS: Enoxaparin Sodium 40 MG/0.4 ML SYRINGE SUBCUT (14:23)
--- NOTE | 2024-07-24 19:50 | PC.NURSE ---
assumed care later in afternoon from [id number] 07/24/24 patient stable, did not wake to sternal rub, but then did open eyes, track and hold conversation after lifting eyelids to assess pupils. patient follows commands, but requires cueing for all requests, moderate to severe weakness all over, total care. put on was on 1L while asleep, transitioned to Room Air without trouble once awakened. patient delayed with speech, vague responses, often responding with only one word. when in the room later in shift at at approx 1835. patient was pulling at medical devices, unable to be redirected, mimicking words of RN in mumbled slurred speech, pulling at medical devices, blank stare past nurse, tracking with head, but not eyes. MD aware of fluctuating mental status of patient. patient stable, awake, not following commands handed off 1900 on 07/24/24
[2024-07-24] MEDS: cloZAPine 25 MG TABLET 50 MG PO (20:58)
[2024-07-24] MEDS: Melatonin 3 MG TABLET 6 MG PO (20:58)
[2024-07-24] MEDS: LORazepam 1 MG TABLET PO (20:58)
[2024-07-25] VITALS (23 sets, daily range): BP systolic 100–151; BP diastolic 49–85; PULSE 59–122; RESP 15–25; TEMP 36.3–36.9; O2SAT 90–100; BMI 27.0
[2024-07-25] MEDS: 0.9 % Sodium Chloride Flush 3 ML SYRINGE IVFLUSH ×4 (00:15→20:17)
[2024-07-25 05:18] LABS: VBG Base Excess 4.3 mmol/L; VBG HCO3 26 mmol/L (22-26); VBG pCO2 31 mmHg; VBG pH 7.53 (7.32-7.43); VBG pO2 148 mmHg
[2024-07-25 05:28] LABS: MANUAL DIFF FLAG NO
[2024-07-25 05:37] LABS: Basophils Percent Auto 0.3 % (0-2); Eosinophils Percent Auto 0.1 % (0-4); Hematocrit 36.2 % (42.0-52.0); Hemoglobin 11.7 g/dl (14.0-18.0); Imm Gran Abs Auto 0.06 X10*3/uL (0.00-0.03); Imm Gran Pct Auto 0.8 % (0.0-0.4); Lymphocytes Absolute Auto 1.4 X10*3/uL (1.2-4.9); Lymphocytes Percent Auto 19.4 % (20-40); Mean Corpuscular HGB Conc 32.3 g/dl (31.0-36.0); Mean Corpuscular Hemoglobin 28.1 pg (27.0-33.0); Mean Platelet Volume 13.5 fL (9.4-12.4); Monocytes Absolute Auto 0.7 X10*3/uL (0.1-1.2); Monocytes Percent Auto 9.4 % (2-11); Neutrophils Absolute Auto 5.1 x10*3/uL (2.0-8.3); Platelet Count 154 X10*3/uL (160-400); Red Blood Count 4.16 X10*6/uL (4.60-5.80); Red Cell Distribution Width 13.5 % (11.0-16.0); White Blood Count 7.3 X10*3/uL (4.8-10.8)
[2024-07-25 05:38] LABS: Lyme Abs Screen <0.90 index
[2024-07-25 05:50] LABS: Alanine Aminotransferase 51 U/L (0-40); Albumin Level 3.5 g/dL (3.5-5.0); Anion Gap 13 (12-20); Aspartate Amino Transferase 29 U/L (5-37); Blood Urea Nitrogen 53 mg/dL (9-16); Calcium 9.2 mg/dL (8.4-10.2); Carbon Dioxide 26 mmol/L (22-29); Chloride 109 mmol/L (96-108); Creatinine Clr Calc Pharmacy 67.8; Estimated Glomerular Filt Rate > 60; Glucose Random 159 mg/dL (60-115); Magnesium 2.5 mg/dL (1.6-2.6); Phosphorus 3.8 mg/dL (2.7-4.5); Potassium 3.5 mmol/L (3.3-5.1); Sodium 144 mmol/L (135-145); Total Protein 6.3 g/dL (6.5-8.0)
[2024-07-25 05:57] LABS: Alkaline Phosphatase 53 U/L (39-117); Bilirubin Total 0.3 mg/dL (0.0-1.0)
[2024-07-25 06:06] LABS: Venous Blood Gas Refer to POC result
[2024-07-25] MEDS: Memantine HCl 5 MG TABLET PO ×2 (08:07→20:17)
[2024-07-25] MEDS: Potassium Chloride Packet 20 MEQ PACKET 40 MEQ NG-TUBE (08:08)
--- NOTE | 2024-07-25 10:26 | MHC.CLN ---
F/U DISCUSSED AT ROUNDS WITH MD REVIEWED LABS-UNREMARKABLE NSG REPORTS TOLERATING TF AT MAX GOAL RATE CONTINUE TF FORMULA JEVITY 1.0 AT MAX GOAL RATE 75ML/HR PROVIDES 1908KCALS (25KCALS/KG), 80G PROTEIN (1.06G/KG), 1503ML WATER FROM FORMULA PT WITH NEW DTI SACRUM-RECOMMEND ADDING 30ML PROSOURCE X1 PER DAY TO PROMOTE WOUND HEALING TO PROVIDE 15G PROTEIN (95G PROTEIN TOTAL 1.2G/KG) RECOMMEND INCREASING FREE WATER FLUSHES TO 240ML Q 6 HRS TO PROVIDE 2463ML TOTAL FREE WATER FROM FORMULA AND FLUSHES (30ML/KG BASED ON IBW) MONITOR TOLERANCE AND LYTES
--- NOTE | 2024-07-25 10:56 | P.PNCC_ITS ---
Subjective Subjective Date of Service: 07/25/24 Interval History: 59-year-old gentleman with underlying history of schizoaffective disorder admitted to psychiatry on 06/21/2024 secondary to worsening psychiatric symptoms for which he was started on ECT with likely post ECT pulmonary aspiration, also with mental state alternating between catatonia and significant agitation requiring ketamine drip. Overnight for 07/16-07/17 with pulmonary aspiration, hypoxia, and respiratory distress requiring intubation and ventilatory support. Extubated 07/18/2024. Received additional ketamine infusion on 07/19/2024. Transferred again to ICU on 07/23/2024 for additional ketamine infusions. Status post additional ketamine infusion on 07/24/2024. No events overnight. Reversal of day/night cycle. Passed swallow evaluation. Critical Care Time (minutes): 0 Physical Exam 2 Vital Signs: Vital Signs: Last Vital Signs Temp 98.4 F 07/25/24 03:54 Pulse 69 07/25/24 10:00 Resp 18 07/25/24 10:00 BP 100/60 07/25/24 10:00 Pulse Ox 97 07/25/24 10:00 O2 Del Method Room Air 07/25/24 10:00 O2 Flow Rate 1 07/24/24 23:00 FiO2 80 07/18/24 15:17 Oxygen Flow Rate 1 07/09/24 13:21 BMI result Body Mass Index 27.0 Const: General: no acute distress and lethargic (Arousable and appropriate) Orientation/consciousness: lethargic (Arousable and appropriate) Eyes: Sclerae: sclerae normal EOM: EOMs intact bilaterally Neck: Neck: Yes no lymphadenopathy, Yes trachea midline and Yes supple Resp: Effort & Inspection: normal respiratory effort and no respiratory distress Auscultation: clear to auscultation bilaterally Cardio: Rate: regular rate Rhythm: regular rhythm Heart sounds: no gallops, no murmurs and no rubs GI: Palpation (GI): Soft to palpation and Other GI palpation findings present ( Nontender) Auscultation: normal bowel sounds Extrem: General: Yes no pedal edema, No clubbing and No cyanosis Objective Data Labs 07/25/24 05:11 07/25/24 05:11 Labs: Laboratory Results - last 24 hr 07/24/24 07/25/24 07/25/24 10:25 05:11 05:13 WBC 7.3 RBC 4.16 L Hgb 11.7 L Hct 36.2 L MCV 87.0 MCH 28.1 MCHC 32.3 RDW 13.5 Plt Count 154 L MPV 13.5 H Immature Gran % (Auto) 0.8 H Neut % (Auto) 70.0 Lymph % (Auto) 19.4 L [place] % (Auto) 9.4 Eos % (Auto) 0.1 Baso % (Auto) 0.3 Lymph # (Auto) 1.4 [place] # (Auto) 0.7 Eos # (Auto) 0.0 Baso # (Auto) 0.0 Abs Immat Gran (auto) 0.06 H Absolute Neuts (auto) 5.1 Absolute Nucleated RBC 0.000 Nucleated RBC % (auto) 0.0 ESR 38 H VBG pH 7.53 H VBG pCO2 31 VBG pO2 148 VBG HCO3 26 VBG O2 Saturation 100.0 VBG Base Excess 4.3 Sodium 144 Potassium 3.5 Chloride 109 H Carbon Dioxide 26 Anion Gap 13 BUN 53 H Creatinine 1.18 Estim Creat Clear Calc 67.8 Estimated GFR > 60 Random Glucose 159 H Calcium 9.2 Phosphorus 3.8 Magnesium 2.5 Total Bilirubin 0.3 AST 29 ALT 51 H Alkaline Phosphatase 53 Total Protein 6.3 L Albumin 3.5 Lyme Screen IgG & IgM <0.90 Progress Note: A&P Assessment and plan (1) Catatonia: Status: Acute (2) Schizoaffective disorder: Status: Acute Plan Assessment: 59-year-old gentleman with underlying schizoaffective disorder admitted with psychiatric decompensation requiring ECT with hospital course further complicated by pulmonary aspiration, mixed catatonia/agitation requiring ketamine, now monitored in the intensive care unit. Plan: Neuro: MRI brain with no acute findings. Cardiac: No acute issues. Pulmonary: With worsening pulmonary aspiration requiring intubation on 07/17/2024. Extubated 07/18/2024. Continues with intermittent small silent aspirations. Titrated down to room air. Renal: No acute issues. Endo: No acute issues. GI: No acute issues. ID: No acute issues. Heme/Onc: No acute issues. Psych: Decompensated schizoaffective disorder requiring ECT, with mixed catatonia/agitation, now status post multiple doses of ketamine, lost on 07/24/2024. Psychiatry service care appreciated. Continue baseline regimen of Clozaril. Continues to be more awake and appropriate. Transferred to intensive care unit for additional ketamine therapy per Psychiatry recommendations. Miscellaneous: No acute issues. Prophylaxis: Lovenox Diet: Pureed Quality Stroke Does the patient have a stroke diagnosis?: No VTE Prior VTE?: No VTE Risk Level:: Medical - low VTE Device Contraindication: N/A - Device Ordered VTE Drug Contraindication: N/A - Med Ordered
--- NOTE | 2024-07-25 13:48 | MHC.SL.SWA ---
Speech Pathologist Impression: Risk of Aspiration Due to: Medically Fragile Neurological Condition History of Pneumonia Poor PO Intake Weak Cough Weak Voice Dysphasia Diet Status: Recommend START diet of PUREE (NDD1) with THIN liquids, pills crushed in puree. Patient will need 1-1 feed. Closely monitor patient for clinical signs of aspiration, including drop in 02 saturation, discontinue if present. Liquids by controlled cup sip or tsp, no straws. Liquid Consistency and Strategies for Safe Swallow: Liquid Intake Recommendation: Thin Liquid Intake Strategies: Small Sips No Straws Solid Food Consistency: Dietary Recommendations: Pureed (NDD1) Additional Modifications to Solid Foods: Liquids by controlled cup sip or tsp, no straws. Oral Medication Intake: Crushed with Puree Please contact the pharmacy regarding appropriate crushable or liquid drug formulations that are available whenever modified delivery is recommended. Compensatory Strategies and Precautions to be Taken for Safe Swallow: Sitting Upright (90 deg) No Straw Liquids from Cup Liquids from Spoon Small Bites and Sips Alternate Liquids/Solids Supervision While Eating and Drinking for Safe Swallow: Total Assistance (1:1) Foods to Avoid: Mixed consistencies Swallowing Recommended Treatments: Compens. Strategy Educat. Recommendation for Speech: Inpatient Speech Therapy Comment: Patient seen this morning for repeat assessment of swallow. Patient was sleeping but woke to name and responded verbally to questions and was able to follow directions. Verbalizations were minimal, but contextually appropriate. Oral motor briefly assessed, patient able to complete all labial and lingual movements, able to resist tongue against spoon. Patient given water by spoon then by controlled cup sip (patient in soft restraints, unable to feed self). Patient produced timely oral phase, timely but audible swallow, no clinical signs of aspiration or wet voice/respiration. After several sips, patient did cough, however did not appear associated with swallow. Patient given tsp. of pudding with timely oral and pharyngeal phase noted on swallow, good oral clearance of bolus noted after swallow. Patient given trial of crushed david cracker in pudding, with patient producing rotary chew on the texture, mildly prolonged oral phase, followed by timely swallow. However on this texture, patient noted to desat into 80s, with no other clinical signs of aspiration. After pause, patient's saturation rebounded well into the 90s, with readings sustained at 99% for period where further sips of water were given to patient at his request. Frequency/Duration: M-F daily Date Range for Service Req: Timeline to reassess: Pt Skilled Clinican/Clinical Fellow: No Supervisory Statement: I have reviewed and agree with the student/clinical fellow's documentation: N/A Speech Language Pathologist: Lilliana Montenegro M.A., CCC-MIXING MACHINE TENDER CORK GASKET
--- NOTE | 2024-07-25 14:21 | MHC.CM.PN ---
Pt continues care if ICU: being treated by psych for atypical catatonia. Had ketamine tx on 07/24: plans for the day are deferred to Dr. George. Pt will need a repeat eval once is alert and responding to commands. CM to follow
[2024-07-25] MEDS: Midazolam HCl 2 MG/2 ML VIAL 1 MG IVPUSH (14:32)
[2024-07-25] MEDS: Enoxaparin Sodium 40 MG/0.4 ML SYRINGE SUBCUT (14:32)
--- NOTE | 2024-07-25 17:30 | PC.NURSE ---
Assumed care at 0700. Pt in restraints for protection of lines and patient safety. Speech recommended thin liquids and pureed foods when pt is alert. Pt, when awake, answers questions appropriately with flat affect. Per Dr Huerta, pt given 1 mg versed with no effect. Dr Huerta aware. For further details, see assessments and MAR. Pt repositioned q2hr. Bed locked and in low position. Alarms on.
[2024-07-25] MEDS: cloZAPine 25 MG TABLET 50 MG PO (20:17)
[2024-07-25] MEDS: LORazepam 1 MG TABLET PO (20:17)
[2024-07-25] MEDS: Melatonin 3 MG TABLET 6 MG PO (20:17)
[2024-07-26] VITALS (23 sets, daily range): BP systolic 107–166; BP diastolic 51–104; PULSE 66–98; RESP 13–28; TEMP 36.1–37.1; O2SAT 92–100; BMI 27.1
[2024-07-26 06:09] LABS: Albumin Level 3.4 g/dL (3.5-5.0); Anion Gap 15 (12-20); Blood Urea Nitrogen 41 mg/dL (9-16); Carbon Dioxide 22 mmol/L (22-29); Chloride 106 mmol/L (96-108); Creatinine Clr Calc Pharmacy 82.5; Estimated Glomerular Filt Rate > 60; Glucose Random 101 mg/dL (60-115); Magnesium 2.3 mg/dL (1.6-2.6); Phosphorus 3.5 mg/dL (2.7-4.5); Potassium 5.3 mmol/L (3.3-5.1); Sodium 138 mmol/L (135-145)
[2024-07-26 06:16] LABS: Basophils Percent Auto 0.2 % (0-2); Eosinophils Percent Auto 0.1 % (0-4); PLT ABN DIST 1; PLT CLUMP 1; SCAN SMEAR FLAG 1
[2024-07-26 06:19] LABS: Hematocrit 36.3 % (42.0-52.0); Imm Gran Abs Auto 0.08 X10*3/uL (0.00-0.03); Imm Gran Pct Auto 0.9 % (0.0-0.4); Lymphocytes Absolute Auto 1.6 X10*3/uL (1.2-4.9); Mean Corpuscular HGB Conc 33.1 g/dl (31.0-36.0); Mean Corpuscular Hemoglobin 28.4 pg (27.0-33.0); Monocytes Absolute Auto 0.7 X10*3/uL (0.1-1.2); Monocytes Percent Auto 7.5 % (2-11); NRBC Pct Auto 0.2 /100WBC (0.0-0.2); Neutrophils Absolute Auto 6.7 x10*3/uL (2.0-8.3); Neutrophils Percent Auto 73.3 % (45-73); Red Blood Count 4.22 X10*6/uL (4.60-5.80); Red Cell Distribution Width 13.2 % (11.0-16.0)
[2024-07-26 06:20] LABS: MANUAL DIFF FLAG NO; White Blood Count 9.1 X10*3/uL (4.8-10.8)
--- NOTE | 2024-07-26 06:40 | PC.NURSE ---
Pt found to have pulled out NGT multiple inches, NGT advanced. Per MARKETING ACCOUNT EXECUTIVE Isaiah hold tube feeds, repeat cxr at 0500. Pt tolerating thin liquids. Aspiration precautions maintained.?
[2024-07-26] MEDS: 0.9 % Sodium Chloride Flush 3 ML SYRINGE IVFLUSH ×2 (07:38→15:55)
[2024-07-26] MEDS: Memantine HCl 5 MG TABLET PO ×2 (07:39→21:00)
[2024-07-26 10:18] LABS: Anti Nuclear Antibody Pattern Nuclear, Homogeneous; Anti Nuclear Antibody Screen POSITIVE (NEGATIVE); Anti Nuclear Antibody Titer 1:40 titer
--- NOTE | 2024-07-26 11:18 | PM.CCPN ---
Subjective Subjective Date of Service: 07/26/24 Interval History: 59-year-old gentleman with underlying history of schizoaffective disorder admitted to psychiatry on 06/21/2024 secondary to worsening psychiatric symptoms for which he was started on ECT with likely post ECT pulmonary aspiration, also with mental state alternating between catatonia and significant agitation requiring ketamine drip. Overnight for 07/16-07/17 with pulmonary aspiration, hypoxia, and respiratory distress requiring intubation and ventilatory support. Extubated 07/18/2024. Received additional ketamine infusion on 07/19/2024. Transferred again to ICU on 07/23/2024 for additional ketamine infusions. Events overnight. Planned for another ketamine effusion today. Critical Care Time (minutes): 0 Physical Exam Vital Signs: Vital Signs: Last Vital Signs Temp 96.9 F 07/26/24 08:00 Pulse 84 07/26/24 11:00 Resp 25 H 07/26/24 11:00 BP 150/76 H 07/26/24 11:00 Pulse Ox 94 07/26/24 11:00 O2 Del Method Room Air 07/26/24 11:00 O2 Flow Rate 1 07/24/24 23:00 FiO2 80 07/18/24 15:17 Oxygen Flow Rate 1 07/09/24 13:21 BMI result Body Mass Index 27.1 Const: General: no acute distress and lethargic (Arousable and appropriate) Orientation/consciousness: lethargic (Arousable and appropriate) Eyes: Sclerae: sclerae normal EOM: EOMs intact bilaterally Neck: Neck: Yes no lymphadenopathy, Yes trachea midline and Yes supple Resp: Effort & Inspection: normal respiratory effort and no respiratory distress Auscultation: clear to auscultation bilaterally Cardio: Rate: regular rate Rhythm: regular rhythm Heart sounds: no gallops, no murmurs and no rubs GI: Palpation (GI): Soft to palpation and Other GI palpation findings present ( Nontender) Auscultation: normal bowel sounds Extrem: General: Yes no pedal edema, No clubbing and No cyanosis Objective Data Labs 07/26/24 05:32 07/26/24 05:32 Labs: Laboratory Results - last 24 hr 07/24/24 07/26/24 10:25 05:32 WBC 9.1 RBC 4.22 L Hgb 12.0 L Hct 36.3 L MCV 86.0 MCH 28.4 MCHC 33.1 RDW 13.2 Plt Count TNP MPV TNP Immature Gran % (Auto) 0.9 H Neut % (Auto) 73.3 H Lymph % (Auto) 18.0 L [place] % (Auto) 7.5 Eos % (Auto) 0.1 Baso % (Auto) 0.2 Lymph # (Auto) 1.6 [place] # (Auto) 0.7 Eos # (Auto) 0.0 Baso # (Auto) 0.0 Abs Immat Gran (auto) 0.08 H Absolute Neuts (auto) 6.7 Absolute Nucleated RBC 0.020 H Nucleated RBC % (auto) 0.2 Sodium 138 Potassium 5.3 H D Chloride 106 Carbon Dioxide 22 Anion Gap 15 BUN 41 H Creatinine 0.97 Estim Creat Clear Calc 82.5 Estimated GFR > 60 Random Glucose 101 Calcium 9.0 Phosphorus 3.5 Magnesium 2.3 Albumin 3.4 L KARELY Screen POSITIVE A KARELY Titer 1:40 H KARELY Pattern Nuclear, Homogeneous A Lyme Progressive Test TNP Progress Note: A&P Assessment and plan (1) Schizoaffective disorder: Status: Acute (2) Catatonia: Status: Acute Plan Assessment: 59-year-old gentleman with underlying schizoaffective disorder admitted with psychiatric decompensation requiring ECT with hospital course further complicated by pulmonary aspiration, mixed catatonia/agitation requiring ketamine, now monitored in the intensive care unit. Plan: Neuro: MRI brain with no acute findings. Cardiac: No acute issues. Pulmonary: With worsening pulmonary aspiration requiring intubation on 07/17/2024. Extubated 07/18/2024. Continues with intermittent small silent aspirations. Titrated down to room air. Renal: No acute issues. Endo: No acute issues. GI: No acute issues. ID: No acute issues. Heme/Onc: No acute issues. Psych: Decompensated schizoaffective disorder requiring ECT, with mixed catatonia/agitation, now status post multiple doses of ketamine, lost on 07/24/2024. Psychiatry service care appreciated. Continue baseline regimen of Clozaril. Continues to be more awake and appropriate. Transferred to intensive care unit for additional ketamine therapy per Psychiatry recommendations. Repeat ketamine infusion today. Miscellaneous: No acute issues. Prophylaxis: Lovenox Diet: Pureed Quality Stroke Does the patient have a stroke diagnosis?: No VTE Prior VTE?: No VTE Risk Level:: Medical - low VTE Device Contraindication: N/A - Device Ordered VTE Drug Contraindication: N/A - Med Ordered
--- NOTE | 2024-07-26 11:43 | MHC.SLORD ---
Speech Language Pathology Order Status: Per RN, patient tolerated breakfast thsi morning w/o any coughing or other over difficulties (MENTAL HEALTH CONSULTANT recc puree/thin consistencies). Lunch tray is held as patient will be getting ketamine infusion. RN advised not to present PO trials at this time.
[2024-07-26] MEDS: Ketamine HCl 500 MG in 0.9 % Sodium Chloride 250 ML 21.88 MG IV (11:45)
--- NOTE | 2024-07-26 12:08 | PC.NURSE ---
Ketamine infusing over ONE HOUR at 21.879ml/hr per pharmacy. Med verified and started with RN Educator Alex
--- NOTE | 2024-07-26 12:25 | MHC.CLN ---
F/U PT'S DIET ADVANCED TO PUREED DISCUSSED AT ROUNDS WITH MD NORMAN ON HOLD; NGT REMAINS IN PLACE PT WITH INCREASED NUTRITION RISK R/T PRESSURE INJURY WILL ADD MAGIC CUP TID AND ENSURE BID TO INCREASE KCALS AND PROMOTE WOUND HEALING MAGIC CUP PROVIDES 870KCALS, 27G PROTEIN ENSURE BID PROVIDES 700KCALS, 40G PROTEIN MONITOR PO ITNAKE AND ENCOURAGE SUPPLEMENTS
--- NOTE | 2024-07-26 15:04 | MHC.CM.PN ---
Pt remains in ICU and is being followed by psych for Ketamine dosing. Pt will receive a dose / tx today. DC plans are dependent upon psych once pt is medically stable. CM to follow
[2024-07-26] MEDS: Enoxaparin Sodium 40 MG/0.4 ML SYRINGE SUBCUT (15:54)
[2024-07-26 18:28] LABS: Anion Gap 15 (12-20); Blood Urea Nitrogen 37 mg/dL (9-16); Calcium 9.3 mg/dL (8.4-10.2); Carbon Dioxide 23 mmol/L (22-29); Chloride 104 mmol/L (96-108); Creatinine Clr Calc Pharmacy 82.5; Estimated Glomerular Filt Rate > 60; Glucose Random 131 mg/dL (60-115); Potassium 3.8 mmol/L (3.3-5.1); Sodium 138 mmol/L (135-145)
[2024-07-26] MEDS: cloZAPine 25 MG TABLET 50 MG PO (21:00)
[2024-07-26] MEDS: Melatonin 3 MG TABLET 6 MG PO (21:00)
[2024-07-26] MEDS: LORazepam 1 MG TABLET PO (21:00)
--- NOTE | 2024-07-26 23:26 | P.EN_ITS ---
Event Note Date of Service: 07/29/24 Event Note: pt seen case reviewed with whiting machine operator and nursing staff. P t more alert was able to have limited conversation more attentive . This was after ketamine infusion . Will continue ketamine protocal as tolerated trying to avoid ect if possible given respiratory issues. c ont clozapine have kept low dose since swallowing and respiratory issues clarify. Time Spent With Patient Time: Total time managing care of this patient today _20___ minutes.
[2024-07-27] VITALS (19 sets, daily range): BP systolic 97–129; BP diastolic 56–74; PULSE 62–92; RESP 13–24; TEMP 36.1–36.9; O2SAT 92–99; BMI 26.5
[2024-07-27] MEDS: 0.9 % Sodium Chloride Flush 3 ML SYRINGE IVFLUSH ×4 (00:16→20:24)
[2024-07-27 04:46] LABS: VBG Base Excess 2.1 mmol/L; VBG HCO3 24 mmol/L (22-26); VBG pCO2 31 mmHg; VBG pH 7.49 (7.32-7.43); VBG pO2 69 mmHg
[2024-07-27 05:09] LABS: MANUAL DIFF FLAG NO
[2024-07-27 05:22] LABS: Basophils Percent Auto 0.2 % (0-2); Eosinophils Percent Auto 0.1 % (0-4); Hemoglobin 12.1 g/dl (14.0-18.0); Imm Gran Abs Auto 0.08 X10*3/uL (0.00-0.03); Imm Gran Pct Auto 0.9 % (0.0-0.4); Lymphocytes Absolute Auto 1.8 X10*3/uL (1.2-4.9); Lymphocytes Percent Auto 20.1 % (20-40); Mean Corpuscular HGB Conc 33.6 g/dl (31.0-36.0); Mean Corpuscular Hemoglobin 28.1 pg (27.0-33.0); Mean Corpuscular Volume 83.5 fL (80.0-98.0); Mean Platelet Volume 13.2 fL (9.4-12.4); Monocytes Absolute Auto 0.7 X10*3/uL (0.1-1.2); Monocytes Percent Auto 8.3 % (2-11); Neutrophils Absolute Auto 6.3 x10*3/uL (2.0-8.3); Neutrophils Percent Auto 70.4 % (45-73); Platelet Count 164 X10*3/uL (160-400); Red Blood Count 4.31 X10*6/uL (4.60-5.80); Red Cell Distribution Width 13.2 % (11.0-16.0); White Blood Count 8.9 X10*3/uL (4.8-10.8)
[2024-07-27 05:35] LABS: Alanine Aminotransferase 47 U/L (0-40); Albumin Level 3.5 g/dL (3.5-5.0); Anion Gap 13 (12-20); Aspartate Amino Transferase 22 U/L (5-37); Bilirubin Total 0.5 mg/dL (0.0-1.0); Blood Urea Nitrogen 37 mg/dL (9-16); Calcium 9.1 mg/dL (8.4-10.2); Carbon Dioxide 24 mmol/L (22-29); Chloride 105 mmol/L (96-108); Creatinine Clr Calc Pharmacy 75.5; Estimated Glomerular Filt Rate > 60; Glucose Random 104 mg/dL (60-115); Magnesium 2.2 mg/dL (1.6-2.6); Phosphorus 3.7 mg/dL (2.7-4.5); Potassium 3.5 mmol/L (3.3-5.1); Sodium 138 mmol/L (135-145); Total Protein 6.4 g/dL (6.5-8.0)
[2024-07-27 05:39] LABS: Alkaline Phosphatase 53 U/L (39-117)
[2024-07-27] MEDS: Memantine HCl 5 MG TABLET PO ×2 (08:42→20:23)
[2024-07-27] MEDS: Potassium Chloride Packet 20 MEQ PACKET 40 MEQ PO (09:45)
--- NOTE | 2024-07-27 10:04 | P.PNCC_ITS ---
Subjective Subjective Date of Service: 07/27/24 Interval History: 59-year-old gentleman with underlying history of schizoaffective disorder admitted to psychiatry on 06/21/2024 secondary to worsening psychiatric symptoms for which he was started on ECT with likely post ECT pulmonary aspiration, also with mental state alternating between catatonia and significant agitation requiring ketamine drip. Overnight for 07/16-07/17 with pulmonary aspiration, hypoxia, and respiratory distress requiring intubation and ventilatory support. Extubated 07/18/2024. Received additional ketamine infusion on 07/19/2024. Transferred again to ICU on 07/23/2024 for additional ketamine infusions. No events overnight. Status post ketamine infusion on 07/26/2024. Critical Care Time (minutes): 0 Physical Exam 2 Vital Signs: Vital Signs: Last Vital Signs Temp 97.5 F 07/27/24 08:00 Pulse 78 07/27/24 09:00 Resp 13 07/27/24 09:00 BP 122/59 L 07/27/24 09:00 Pulse Ox 96 07/27/24 09:00 O2 Del Method Room Air 07/27/24 09:00 O2 Flow Rate 1 07/24/24 23:00 FiO2 80 07/18/24 15:17 Oxygen Flow Rate 1 07/09/24 13:21 BMI result Body Mass Index 26.5 Const: General: no acute distress, alert and awake Eyes: Sclerae: sclerae normal EOM: EOMs intact bilaterally Neck: Neck: Yes no lymphadenopathy, Yes trachea midline and Yes supple Resp: Effort & Inspection: normal respiratory effort and no respiratory distress Auscultation: clear to auscultation bilaterally Cardio: Rate: regular rate Rhythm: regular rhythm Heart sounds: no gallops, no murmurs and no rubs GI: Palpation (GI): Soft to palpation and Other GI palpation findings present ( Nontender) Auscultation: normal bowel sounds Extrem: General: Yes no pedal edema, No clubbing and No cyanosis Objective Data Labs 07/27/24 04:21 07/27/24 04:21 Labs: Laboratory Results - last 24 hr 07/24/24 07/26/24 07/27/24 10:25 18:07 04:21 WBC 8.9 RBC 4.31 L Hgb 12.1 L Hct 36.0 L MCV 83.5 MCH 28.1 MCHC 33.6 RDW 13.2 Plt Count 164 MPV 13.2 H Immature Gran % (Auto) 0.9 H Neut % (Auto) 70.4 Lymph % (Auto) 20.1 [place] % (Auto) 8.3 Eos % (Auto) 0.1 Baso % (Auto) 0.2 Lymph # (Auto) 1.8 [place] # (Auto) 0.7 Eos # (Auto) 0.0 Baso # (Auto) 0.0 Abs Immat Gran (auto) 0.08 H Absolute Neuts (auto) 6.3 Absolute Nucleated RBC 0.000 Nucleated RBC % (auto) 0.0 VBG pH VBG pCO2 VBG pO2 VBG HCO3 VBG O2 Saturation VBG Base Excess Sodium 138 138 Potassium 3.8 D 3.5 Chloride 104 105 Carbon Dioxide 23 24 Anion Gap 15 13 BUN 37 H 37 H Creatinine 0.97 1.06 Estim Creat Clear Calc 82.5 75.5 Estimated GFR > 60 > 60 Random Glucose 131 H 104 Calcium 9.3 9.1 Phosphorus 3.7 Magnesium 2.2 Total Bilirubin 0.5 AST 22 ALT 47 H Alkaline Phosphatase 53 Total Protein 6.4 L Albumin 3.5 KARELY Screen POSITIVE A KARELY Titer 1:40 H KARELY Titer 2 TNP KARELY Titer 3 TNP KARELY Pattern Nuclear, Homogeneous A KARELY Pattern 2 TNP KARELY Pattern 3 TNP 07/27/24 04:43 WBC RBC Hgb Hct MCV MCH MCHC RDW Plt Count MPV Immature Gran % (Auto) Neut % (Auto) Lymph % (Auto) [place] % (Auto) Eos % (Auto) Baso % (Auto) Lymph # (Auto) [place] # (Auto) Eos # (Auto) Baso # (Auto) Abs Immat Gran (auto) Absolute Neuts (auto) Absolute Nucleated RBC Nucleated RBC % (auto) VBG pH 7.49 H VBG pCO2 31 VBG pO2 69 VBG HCO3 24 VBG O2 Saturation 94.0 VBG Base Excess 2.1 Sodium Potassium Chloride Carbon Dioxide Anion Gap BUN Creatinine Estim Creat Clear Calc Estimated GFR Random Glucose Calcium Phosphorus Magnesium Total Bilirubin AST ALT Alkaline Phosphatase Total Protein Albumin KARELY Screen KARELY Titer KARELY Titer 2 KARELY Titer 3 KARELY Pattern KARELY Pattern 2 KARELY Pattern 3 Progress Note: A&P Assessment and plan (1) Catatonia: Status: Acute (2) Schizoaffective disorder: Status: Acute Plan Assessment: 59-year-old gentleman with underlying schizoaffective disorder admitted with psychiatric decompensation requiring ECT with hospital course further complicated by pulmonary aspiration, mixed catatonia/agitation requiring ketamine, now monitored in the intensive care unit. Plan: Neuro: MRI brain with no acute findings. Cardiac: No acute issues. Pulmonary: With worsening pulmonary aspiration requiring intubation on 07/17/2024. Extubated 07/18/2024. Continues with intermittent small silent aspirations. Titrated down to room air. Renal: No acute issues. Endo: No acute issues. GI: No acute issues. ID: No acute issues. Heme/Onc: No acute issues. Psych: Decompensated schizoaffective disorder requiring ECT, with mixed catatonia/agitation, now status post multiple doses of ketamine, lost on 07/24/2024. Psychiatry service care appreciated. Continue baseline regimen of Clozaril. Continues to be more awake and appropriate. Transferred to intensive care unit for additional ketamine therapy per Psychiatry recommendations. Now status post ketamine infusion on 07/26/2024 with no further ketamine infusions planned. Miscellaneous: No acute issues. Prophylaxis: Lovenox Diet: Pureed Quality Stroke Does the patient have a stroke diagnosis?: No VTE Prior VTE?: No VTE Risk Level:: Medical - low VTE Device Contraindication: N/A - Device Ordered VTE Drug Contraindication: N/A - Med Ordered
--- NOTE | 2024-07-27 11:00 | PC.NURSE ---
Patient voided 300ml clear yellow urine, external catheter in place
[2024-07-27 13:07] LABS: Venous Blood Gas Refer to POC result
[2024-07-27] MEDS: Enoxaparin Sodium 40 MG/0.4 ML SYRINGE SUBCUT (15:30)
--- NOTE | 2024-07-27 16:41 | PM.EVENT ---
Event Note Date of Service: 07/27/24 Event Note: 59 year old man admitted to ICU after aspiration event after ECT . Due to Catatonia and agitation patient was treated with Ketamine drip. He was intubated 07/17 and extubated 07/18. Depression with decompensated schizophrenia, catatonia and agitation psychiatric consultation Status post multiple incisions of ketamine, last on 07/26 Continue Clozaril Psychiatric team following Aspiration PNA requiring ICU and intubation s/p ampicillin Maintaining on room air Dysphagia Tolerating Diet Time Spent With Patient Time: Total time managing care of this patient today ____ minutes.
--- NOTE | 2024-07-27 17:00 | PC.NURSE ---
Patient reporting difficulty urinating, stating he is unable to, 300ml clear yellow urine collected in the external catheter bag and 0ml output since 1200. Patient was bladder scanned for 540ml, straight cath performed, 520ml of yellow urine drained. Patient tolerated procedure well, report given to [facility] RN
[2024-07-27] MEDS: cloZAPine 25 MG TABLET 50 MG PO (20:23)
[2024-07-27] MEDS: Melatonin 3 MG TABLET 6 MG PO (20:23)
[2024-07-27] MEDS: LORazepam 1 MG TABLET PO (20:24)
[2024-07-28 03:39] VITALS: BP 108/68; PULSE 79; RESP 16; TEMP 36.5; O2SAT 94
[2024-07-28 07:52] VITALS: BP 112/59; PULSE 82; RESP 17; TEMP 36.8; O2SAT 96
[2024-07-28] MEDS: Memantine HCl 5 MG TABLET PO ×2 (08:00→20:47)
[2024-07-28] MEDS: 0.9 % Sodium Chloride Flush 3 ML SYRINGE IVFLUSH ×3 (08:00→20:48)
[2024-07-28 08:48] LABS: Basophils Percent Auto 0.4 % (0-2); Hematocrit 39.2 % (42.0-52.0); Hemoglobin 12.8 g/dl (14.0-18.0); Imm Gran Abs Auto 0.08 X10*3/uL (0.00-0.03); Lymphocytes Absolute Auto 1.6 X10*3/uL (1.2-4.9); Lymphocytes Percent Auto 20.3 % (20-40); MANUAL DIFF FLAG SCAN; Mean Corpuscular HGB Conc 32.7 g/dl (31.0-36.0); Mean Corpuscular Hemoglobin 27.8 pg (27.0-33.0); Mean Corpuscular Volume 85.2 fL (80.0-98.0); Monocytes Absolute Auto 0.7 X10*3/uL (0.1-1.2); Monocytes Percent Auto 8.3 % (2-11); Neutrophils Absolute Auto 5.5 x10*3/uL (2.0-8.3); PLT CLUMP 1; Red Cell Distribution Width 13.3 % (11.0-16.0); SCAN SMEAR FLAG 1
[2024-07-28 08:50] LABS: White Blood Count 7.8 X10*3/uL (4.8-10.8)
[2024-07-28 09:05] LABS: Albumin Level 3.5 g/dL (3.5-5.0); Anion Gap 16 (12-20); Blood Urea Nitrogen 30 mg/dL (9-16); Carbon Dioxide 23 mmol/L (22-29); Chloride 104 mmol/L (96-108); Estimated Glomerular Filt Rate > 60; Glucose Random 91 mg/dL (60-115); Magnesium 2.2 mg/dL (1.6-2.6); Phosphorus 3.6 mg/dL (2.7-4.5); Potassium 3.8 mmol/L (3.3-5.1); Sodium 139 mmol/L (135-145)
[2024-07-28 09:06] LABS: Platelet Count 136 X10*3/uL (160-400)
[2024-07-28 09:07] LABS: SLIDE REVIEW VERIFIED
--- NOTE | 2024-07-28 10:45 | P.PNIM_ITS ---
Subjective Subjective Date of Service: 07/28/24 Interval History: seen and examined this morning follow up for alternating catatonia/agitation has been in the ICU for aspiration and ketamine infusions downgraded again from the ICU 07/27 Patient is awake, alert, comfortable in no acute distress. He answers questions appropriately but is slow to respond He has no specific complaints Review of Systems Review of Systems: Yes all other systems are reviewed and are negative Constitutional Constitutional: Denies chills and Denies fever(s) Cardiovascular Cardiovascular: Denies chest pain, Denies palpitations and Denies dyspnea Respiratory Respiratory: Denies dyspnea Gastrointestinal Gastrointestinal: Denies abdominal pain Endocrine Endocrine: Denies palpitations Physical Exam 2 Vital Signs: Vital Signs: Last Vital Signs Temp 98.2 F 07/28/24 07:52 Pulse 82 07/28/24 07:52 Resp 17 07/28/24 07:52 BP 112/59 L 07/28/24 07:52 Pulse Ox 96 07/28/24 07:52 O2 Del Method Room Air 07/28/24 07:52 O2 Flow Rate 1 07/24/24 23:00 FiO2 80 07/18/24 15:17 Oxygen Flow Rate 1 07/09/24 13:21 BMI result Body Mass Index 26.5 Const: General: alert and awake Nutritional Appearance: average body habitus Orientation/consciousness: patient oriented x3 Resp: Effort & Inspection: normal respiratory effort, able to speak in complete sentences, no respiratory distress and no use of accessory muscles Cardio: Rate: regular rate GI: Inspection: No distended Palpation (GI): Soft to palpation and nontender Neuro: General: patient oriented x3, moves all extremities and CN's II-XI intact bilaterally Extrem: General: Yes no pedal edema Objective Data Active Medications Clozapine (Clozapine 25 Mg Tablet) 50 mg PO BEDTIME [facility] Last Admin: 07/27/24 20:23 Dose: 50 mg Documented By: BELDAYRON Enoxaparin Sodium (Enoxaparin Sodium 40 Mg/0.4 Ml Syringe) 40 mg SUBCUT Q24H [facility] Last Admin: 07/27/24 15:30 Dose: 40 mg Documented By: JON Labetalol HCl (Labetalol Hcl 100 Mg/20 Ml Vial) 10 mg IVPUSH Q10M PRN PRN Reason: SBP > 160 Last Admin: 07/20/24 06:13 Dose: 10 mg Documented By: LOIR Lorazepam (Lorazepam 1 Mg Tablet) 1 mg PO BEDTIME [facility] Last Admin: 07/27/24 20:24 Dose: 1 mg Documented By: CARLOS Melatonin (Melatonin 3 Mg Tablet) 6 mg PO BEDTIME [facility] Last Admin: 07/27/24 20:23 Dose: 6 mg Documented By: CARLOS Memantine (Memantine Hcl 5 Mg Tablet) 5 mg PO BID [facility] Last Admin: 07/28/24 08:00 Dose: 5 mg Documented By: STIVEN Sodium Chloride (0.9 % Sodium Chloride Flush 3 Ml Syringe) 3 ml IVFLUSH QSHIFT [facility] Last Admin: 07/28/24 08:00 Dose: 3 ml Documented By: STIVEN Labs 07/28/24 07:53 07/28/24 07:53 Labs: Laboratory Results - last 24 hr 07/28/24 07/28/24 07:53 07:53 MCV 85.2 MCH 27.8 MCHC 32.7 RDW 13.3 Plt Count 136 L MPV Not Reportable Immature Gran % (Auto) 1.0 H Neut % (Auto) 70.0 Lymph % (Auto) 20.3 [place] % (Auto) 8.3 Eos % (Auto) 0.0 Baso % (Auto) 0.4 Lymph # (Auto) 1.6 [place] # (Auto) 0.7 Eos # (Auto) 0.0 Baso # (Auto) 0.0 Abs Immat Gran (auto) 0.08 H Absolute Neuts (auto) 5.5 Cancelled Absolute Nucleated RBC 0.000 Nucleated RBC % (auto) 0.0 Smear Tech's Comments VERIFIED Anion Gap 16 Estim Creat Clear Calc 80.0 Estimated GFR > 60 Random Glucose 91 Calcium 9.0 Phosphorus 3.6 Magnesium 2.2 Albumin 3.5 Assessment and Plan (1) Pulmonary aspiration: Status: Acute (2) Schizoaffective disorder: Status: Acute (3) Catatonia: Status: Acute Plan This is a 59-year-old male with history schizoaffective disorder who was initially admitted to inpatient psychiatric floor June 21 due to worsening catatonia. He received scheduled ECT following which time his oxygen saturations dropped, concern for aspiration and he was admitted to the ICU 07/09 where he started on tube feeds after failing swallow evaluation, received multiple doses of ketamine and had mental state alternating between catatonia and significant agitation requiring ketamine drip. He was intubated 07/17 due to respiratory distress in the setting of likely aspiration. Extubated 07/18. Downgraded to medical floor on 07/22 and sent back to ICU 07/23 for further planned ketamine infusions. He was downgraded back to the medical floor again on 07/27 as no further ketamine infusions plan at this time. Depression with decompensated schizophrenia, catatonia and agitation Status post multiple incisions of ketamine, last on 07/26 Continue Clozaril Psychiatric team following Aspiration PNA requiring ICU and intubation s/p ampicillin on room air Dysphagia Tolerating pureed diet Aspiration precautions DTI sacrum Seen by wound care nurse Off Load Pressure with Q2 hr turns and use of pillows - Apply skin prep to wound bed and periwound. Apply with foam dressing to aid in off loading and protection from friction. Change every 3 days and PRN. DVT prophylaxis-Lovenox Quality Stroke Does the patient have a stroke diagnosis?: No VTE Prior VTE?: No VTE Risk Level:: Medical - low VTE Device Contraindication: N/A - Device Ordered VTE Drug Contraindication: N/A - Med Ordered
[2024-07-28 11:35] VITALS: BP 123/67; PULSE 73; RESP 13; TEMP 37.2; O2SAT 99
--- NOTE | 2024-07-28 13:31 | PC.NURSE ---
At 1300 pt unable to urinate; pt retaining urine; bladder scanned for 537cc; This RN str cath the patient for 560cc. Pt tolerated well; This is the second str cath for the patient; Pt will be monitored for urinary retention and bladder scanned every shift. Bed in the lowest position and call contreras within reach.
[2024-07-28 15:52] VITALS: BP 128/67; PULSE 78; RESP 17; TEMP 37.3; O2SAT 95
[2024-07-28] MEDS: Enoxaparin Sodium 40 MG/0.4 ML SYRINGE SUBCUT (16:21)
[2024-07-28 19:13] VITALS: BP 137/96; PULSE 91; RESP 18; TEMP 36.6; O2SAT 95
[2024-07-28] MEDS: Melatonin 3 MG TABLET 6 MG PO (20:48)
[2024-07-28] MEDS: cloZAPine 25 MG TABLET 50 MG PO (20:48)
[2024-07-28] MEDS: LORazepam 1 MG TABLET PO (20:48)
[2024-07-28] MEDS: Tamsulosin HCL 0.4 MG CAPSULE PO (20:48)
[2024-07-28 23:17] VITALS: BP 119/71; PULSE 78; RESP 18; TEMP 35.9; O2SAT 97
[2024-07-29 03:14] VITALS: BP 121/64; PULSE 77; RESP 18; TEMP 36.7; O2SAT 97
[2024-07-29 07:58] VITALS: BP 125/68; PULSE 69; RESP 20; TEMP 36.1; O2SAT 98
[2024-07-29] MEDS: Memantine HCl 5 MG TABLET PO ×2 (10:23→20:33)
[2024-07-29 12:00] VITALS: BP 125/68; PULSE 75; RESP 20; TEMP 36.6; O2SAT 98
--- NOTE | 2024-07-29 12:23 | MHC.CLN ---
F/U PT TRANSFERRED TO MEDICAL FLOOR PT'S DIET ADVANCED TO PUREED TF D/C WHILE IN ICU PO INTAKE 25% X4 MEALS PT WITH INCREASED NUTRITION RISK R/T PRESSURE INJURY PT RECEIVING MAGIC CUP TID AND ENSURE BID TO INCREASE KCALS AND PROMOTE WOUND HEALING MAGIC CUP PROVIDES 870KCALS, 27G PROTEIN ENSURE BID PROVIDES 700KCALS, 40G PROTEIN MONITOR PO INTAKE AND ENCOURAGE SUPPLEMENTS
--- NOTE | 2024-07-29 13:25 | P.PNIM_ITS ---
Subjective Subjective Date of Service: 07/29/24 Interval History: follow up for alternating catatonia/agitation has been in the ICU for aspiration and ketamine infusions downgraded again from the ICU 07/27 Patient is awake, alert, comfortable in no acute distress. He answers questions appropriately but is slow to respond He has no specific complaints Review of Systems Review of Systems: Yes all other systems are reviewed and are negative Constitutional Constitutional: Denies chills and Denies fever(s) Cardiovascular Cardiovascular: Denies chest pain, Denies palpitations and Denies dyspnea Respiratory Respiratory: Denies dyspnea Gastrointestinal Gastrointestinal: Denies abdominal pain Endocrine Endocrine: Denies palpitations Physical Exam 2 Vital Signs: Vital Signs: Last Vital Signs Temp 97.8 F 07/29/24 12:00 Pulse 75 07/29/24 12:00 Resp 20 07/29/24 12:00 BP 125/68 07/29/24 12:00 Pulse Ox 98 07/29/24 12:00 O2 Del Method Room Air 07/29/24 12:00 O2 Flow Rate 1 07/24/24 23:00 FiO2 80 07/18/24 15:17 Oxygen Flow Rate 1 07/09/24 13:21 BMI result Body Mass Index 26.5 Appearing in no acute distress lung sounds are clear to auscultation heart regular rate rhythm, clear S1, S2 positive bowel sounds, abdomen is soft, nontender neuro patient is alert x3, no focal deficits Objective Data Active Medications Clozapine (Clozapine 25 Mg Tablet) 50 mg PO BEDTIME [facility] Last Admin: 07/28/24 20:48 Dose: 50 mg Documented By: HILDA Enoxaparin Sodium (Enoxaparin Sodium 40 Mg/0.4 Ml Syringe) 40 mg SUBCUT Q24H [facility] Last Admin: 07/28/24 16:21 Dose: 40 mg Documented By: STIVEN Lorazepam (Lorazepam 1 Mg Tablet) 1 mg PO BEDTIME [facility] Last Admin: 07/28/24 20:48 Dose: 1 mg Documented By: HILDA Melatonin (Melatonin 3 Mg Tablet) 6 mg PO BEDTIME [facility] Last Admin: 07/28/24 20:48 Dose: 6 mg Documented By: HILDA Memantine (Memantine Hcl 5 Mg Tablet) 5 mg PO BID [facility] Last Admin: 07/29/24 10:23 Dose: 5 mg Documented By: HO.RIOSCEL Sodium Chloride (0.9 % Sodium Chloride Flush 3 Ml Syringe) 3 ml IVFLUSH QSHIFT [facility] Last Admin: 07/29/24 10:21 Dose: Not Given Documented By: LORIN Non-Admin Reason: No Access Tamsulosin HCl (Tamsulosin Hcl 0.4 Mg Capsule) 0.4 mg PO BEDTIME [facility] Last Admin: 07/28/24 20:48 Dose: 0.4 mg Documented By: HILDA Labs 07/28/24 07:53 07/28/24 07:53 Assessment and Plan (1) Pulmonary aspiration: Status: Acute (2) Schizoaffective disorder: Status: Acute (3) Catatonia: Status: Acute Plan This is a 59-year-old male with history schizoaffective disorder who was initially admitted to inpatient psychiatric floor June 21 due to worsening catatonia. He received scheduled ECT following which time his oxygen saturations dropped, concern for aspiration and he was admitted to the ICU 07/09 where he started on tube feeds after failing swallow evaluation, received multiple doses of ketamine and had mental state alternating between catatonia and significant agitation requiring ketamine drip. He was intubated 07/17 due to respiratory distress in the setting of likely aspiration. Extubated 07/18. Downgraded to medical floor on 07/22 and sent back to ICU 07/23 for further planned ketamine infusions. He was downgraded back to the medical floor again on 07/27 as no further ketamine infusions plan at this time. Depression with decompensated schizophrenia, catatonia and agitation Status post multiple incisions of ketamine, last on 07/26 Continue Clozaril Psychiatric team following Aspiration PNA requiring ICU and intubation s/p ampicillin on room air Dysphagia Tolerating pureed diet Aspiration precautions DTI sacrum Seen by wound care nurse Off Load Pressure with Q2 hr turns and use of pillows - Apply skin prep to wound bed and periwound. Apply with foam dressing to aid in off loading and protection from friction. Change every 3 days and PRN. DVT prophylaxis-Lovenox Quality Stroke Does the patient have a stroke diagnosis?: No VTE Prior VTE?: No VTE Risk Level:: Medical - low VTE Device Contraindication: N/A - Device Ordered VTE Drug Contraindication: N/A - Med Ordered
--- NOTE | 2024-07-29 14:07 | MHC.CM.PN ---
EMR reviewed and per MD rounds, pt is not medically cleared for discharge due to management of aspiration pneumonia, catatonia, pending psych consult.
--- NOTE | 2024-07-29 15:26 | MHC.SLORD ---
Speech Language Pathology Order Status: RN consulted, pt intake is minimal. Pt remains in confused state, though he is more communicative now than in prior days. ASSOCIATE FINANCIAL PLANNER to re-assess swallow when pt eating, current diet is NDD1 with thins, 1:1 supervision.
[2024-07-29 15:30] VITALS: BP 124/59; PULSE 81; RESP 20; TEMP 36.2; O2SAT 99
[2024-07-29] MEDS: Enoxaparin Sodium 40 MG/0.4 ML SYRINGE SUBCUT (17:11)
[2024-07-29 19:11] VITALS: BP 117/69; PULSE 84; RESP 20; TEMP 36.3; O2SAT 97
[2024-07-29] MEDS: Tamsulosin HCL 0.4 MG CAPSULE PO (20:33)
[2024-07-29] MEDS: Melatonin 3 MG TABLET 6 MG PO (20:33)
[2024-07-29] MEDS: cloZAPine 25 MG TABLET 50 MG PO (20:33)
[2024-07-29] MEDS: LORazepam 1 MG TABLET PO (20:33)
[2024-07-29 23:43] VITALS: BP 114/72; PULSE 76; RESP 20; TEMP 36.4; O2SAT 96
[2024-07-30] VITALS (16 sets, daily range): BP systolic 98–155; BP diastolic 55–75; PULSE 70–93; RESP 16–20; TEMP 36.2–36.9; O2SAT 95–99
[2024-07-30] MEDS: Memantine HCl 5 MG TABLET PO (09:13)
--- NOTE | 2024-07-30 09:29 | HO.PM.IMPN ---
Subjective Subjective Date of Service: 07/30/24 Interval History: follow up for alternating catatonia/agitation has been in the ICU for aspiration and ketamine infusions downgraded again from the ICU 07/27 Patient is awake, alert, comfortable in no acute distress. He answers questions appropriately but is slow to respond eating breakfast this morning, sitting up in bed Review of Systems Review of Systems: Yes all other systems are reviewed and are negative Constitutional Constitutional: Denies chills and Denies fever(s) Cardiovascular Cardiovascular: Denies chest pain, Denies palpitations and Denies dyspnea Respiratory Respiratory: Denies dyspnea Gastrointestinal Gastrointestinal: Denies abdominal pain Endocrine Endocrine: Denies palpitations Physical Exam Vital Signs: Vital Signs: Last Vital Signs Temp 97.7 F 07/30/24 08:00 Pulse 78 07/30/24 08:00 Resp 20 07/30/24 08:00 BP 109/62 07/30/24 08:00 Pulse Ox 97 07/30/24 08:00 O2 Del Method Room Air 07/30/24 08:00 O2 Flow Rate 1 07/24/24 23:00 FiO2 80 07/18/24 15:17 Oxygen Flow Rate 1 07/09/24 13:21 BMI result Body Mass Index 26.5 Appearing in no acute distress lung sounds are clear to auscultation heart regular rate rhythm, clear S1, S2 positive bowel sounds, abdomen is soft, nontender neuro patient is alert Objective Data Active Medications Clozapine (Clozapine 25 Mg Tablet) 50 mg PO BEDTIME [facility] Last Admin: 07/29/24 20:33 Dose: 50 mg Documented By: RUTH Enoxaparin Sodium (Enoxaparin Sodium 40 Mg/0.4 Ml Syringe) 40 mg SUBCUT Q24H [facility] Last Admin: 07/29/24 17:11 Dose: 40 mg Documented By: LORIN Melatonin (Melatonin 3 Mg Tablet) 6 mg PO BEDTIME [facility] Last Admin: 07/29/24 20:33 Dose: 6 mg Documented By: RUTH Memantine (Memantine Hcl 5 Mg Tablet) 5 mg PO BID [facility] Last Admin: 07/30/24 09:13 Dose: 5 mg Documented By: LORIN Sodium Chloride (0.9 % Sodium Chloride Flush 3 Ml Syringe) 3 ml IVFLUSH QSHIFT [facility] Last Admin: 07/30/24 09:11 Dose: Not Given Documented By: LORIN Non-Admin Reason: No Access Tamsulosin HCl (Tamsulosin Hcl 0.4 Mg Capsule) 0.4 mg PO BEDTIME [facility] Last Admin: 07/29/24 20:33 Dose: 0.4 mg Documented By: RUTH Labs 07/28/24 07:53 07/28/24 07:53 Assessment and Plan (1) Pulmonary aspiration: Status: Acute (2) Schizoaffective disorder: Status: Acute (3) Catatonia: Status: Acute Plan 59-year-old male with history schizoaffective disorder who was initially admitted to inpatient psychiatric floor June 21 due to worsening catatonia. He received scheduled ECT following which time his oxygen saturations dropped, concern for aspiration and he was admitted to the ICU 07/09 where he started on tube feeds after failing swallow evaluation, received multiple doses of ketamine and had mental state alternating between catatonia and significant agitation requiring ketamine drip. He was intubated 07/17 due to respiratory distress in the setting of likely aspiration. Extubated 07/18. Downgraded to medical floor on 07/22 and sent back to ICU 07/23 for further planned ketamine infusions. He was downgraded back to the medical floor again on 07/27 as no further ketamine infusions plan at this time. Depression with decompensated schizophrenia, catatonia and agitation Status post multiple incisions of ketamine, last on 07/26 Continue Clozaril Psychiatric team following doing much better, awake, communicating, eating, would be able to tx back to psychiatric floor for further management of catatonia Aspiration PNA requiring ICU and intubation s/p ampicillin now on room air Dysphagia Tolerating pureed diet Aspiration precautions DTI sacrum Seen by wound care nurse Off Load Pressure with Q2 hr turns and use of pillows>Apply skin prep to wound bed and periwound. Apply with foam dressing to aid in off loading and protection from friction. Change every 3 days and PRN. DVT prophylaxis-Lovenox Full code Quality Stroke Does the patient have a stroke diagnosis?: No VTE Prior VTE?: No VTE Risk Level:: Medical - low VTE Device Contraindication: N/A - Device Ordered VTE Drug Contraindication: N/A - Med Ordered
--- NOTE | 2024-07-30 12:02 | MHC.SL.SWA ---
Risk of Aspiration Due to: Medically Fragile Neurological Condition History of Pneumonia Poor PO Intake Weak Cough Weak Voice Dysphasia Diet Status: UPGRADE Liquid Consistency and Strategies for Safe Swallow: Liquid Intake Recommendation: Thin Liquid Intake Strategies: Small Sips No Straws Solid Food Consistency: Dietary Recommendations: Grnd/Mech Altered (NDD2) Oral Medication Intake: Crushed with Puree Please contact the pharmacy regarding appropriate crushable or liquid drug formulations that are available whenever modified delivery is recommended. Compensatory Strategies and Precautions to be Taken for Safe Swallow: Sitting Upright (90 deg) No Straw Small Bites and Sips Alternate Liquids/Solids Avoid Specific Foods Supervision While Eating and Drinking for Safe Swallow: Total Assistance (1:1) Foods to Avoid: Mixed consistencies Swallowing Recommended Treatments: Compens. Strategy Educat. Recommendation for Speech: Inpatient Speech Therapy Recommend UPGRADE to GROUND/MECH ALTERED solids (NDD2) w/ extra sauce/gravy. Continue with THIN liquids (NO STRAWS). Pills crushed in puree when possible, otherwise cut 1/2 in puree. Pt requires 1-1 assistance w/ feeding to load bites onto spoon. Alternate liquids/solids. Second Class Welder Clinican/Clinical Fellow: No Supervisory Statement: I have reviewed and agree with the student/clinical fellow's documentation: N/A Speech Language Pathologist: Lilliana Montenegro M.A., CCC-PAPER CUTTER OPERATOR
[2024-07-30] MEDS: Enoxaparin Sodium 40 MG/0.4 ML SYRINGE SUBCUT (14:24)
[2024-07-30] MEDS: 0.9 % Sodium Chloride Flush 3 ML SYRINGE IVFLUSH (14:25)
[2024-07-30] MEDS: Ketamine HCl 500 MG in 0.9 % Sodium Chloride 250 ML 21.4 MG IV (15:13)
[2024-07-30] MEDS: Tamsulosin HCL 0.4 MG CAPSULE 0.8 MG PO (19:58)
--- NOTE | 2024-07-30 23:21 | PM.EVENT ---
Event Note Date of Service: 07/30/24 Event Note: Patient seen psychiatric follow-up. Patient on medical floor has shown clear improvement with ketamine infusion. Will try to change 2 times a week. Patient verbal processing information swallowing fluids and eating. Patient's verbal processing and alertness although slowed is significantly improved from anything over the past month. Continue clozapine have been avoiding higher doses secondary to recent respiratory compromise. Unclear if patient will need ECT or ketamine will be sufficient off-label literature reviewed. Patient significantly debilitated will need active physical therapy. Case discussed with hospitalist service Time Spent With Patient Time: Total time managing care of this patient today ____ minutes.
[2024-07-31] MEDS: OLANZapine 10 MG VIAL IM ×2 (00:03→23:54)
[2024-07-31 02:56] VITALS: BP 138/86; PULSE 104; RESP 18; TEMP 36.2; O2SAT 94
[2024-07-31 07:28] VITALS: BP 100/56; PULSE 75; RESP 18; TEMP 36.3; O2SAT 94
[2024-07-31 07:38] LABS: Anion Gap 13 (12-20); Blood Urea Nitrogen 13 mg/dL (9-16); Calcium 8.9 mg/dL (8.4-10.2); Carbon Dioxide 23 mmol/L (22-29); Chloride 105 mmol/L (96-108); Estimated Glomerular Filt Rate > 60; Glucose Random 106 mg/dL (60-115); Potassium 4.1 mmol/L (3.3-5.1); Sodium 137 mmol/L (135-145)
--- NOTE | 2024-07-31 10:29 | P.PNIM_ITS ---
Subjective Subjective Date of Service: 07/31/24 Interval History: follow up for alternating catatonia/agitation had been in the ICU for aspiration and ketamine infusions downgraded again from the ICU 07/27 Patient is awake, alert, comfortable in no acute distress. He answers questions appropriately but is slow to respond eating breakfast this morning, sitting up in bed Review of Systems Review of Systems: Yes all other systems are reviewed and are negative Constitutional Constitutional: Denies chills and Denies fever(s) Cardiovascular Cardiovascular: Denies chest pain, Denies palpitations and Denies dyspnea Respiratory Respiratory: Denies dyspnea Gastrointestinal Gastrointestinal: Denies abdominal pain Endocrine Endocrine: Denies palpitations Physical Exam 2 Vital Signs: Vital Signs: Last Vital Signs Temp 97.4 F 07/31/24 07:28 Pulse 75 07/31/24 07:28 Resp 18 07/31/24 07:28 BP 100/56 L 07/31/24 07:28 Pulse Ox 94 07/31/24 07:28 O2 Del Method Room Air 07/31/24 07:28 O2 Flow Rate 1 07/24/24 23:00 FiO2 80 07/18/24 15:17 Oxygen Flow Rate 1 07/09/24 13:21 BMI result Body Mass Index 26.5 Appearing in no acute distress lung sounds are clear to auscultation heart regular rate rhythm, clear S1, S2 positive bowel sounds, abdomen is soft, nontender neuro patient is alert x3, no focal deficits Objective Data Active Medications Clozapine (Clozapine 25 Mg Tablet) 50 mg PO BEDTIME [facility] Last Admin: 07/29/24 20:33 Dose: 50 mg Documented By: RUTH Enoxaparin Sodium (Enoxaparin Sodium 40 Mg/0.4 Ml Syringe) 40 mg SUBCUT Q24H [facility] Last Admin: 07/30/24 14:24 Dose: 40 mg Documented By: LORIN Melatonin (Melatonin 3 Mg Tablet) 6 mg PO BEDTIME [facility] Last Admin: 07/29/24 20:33 Dose: 6 mg Documented By: RUTH Memantine (Memantine Hcl 5 Mg Tablet) 5 mg PO BID [facility] Last Admin: 07/30/24 09:13 Dose: 5 mg Documented By: LORIN Sodium Chloride (0.9 % Sodium Chloride Flush 3 Ml Syringe) 3 ml IVFLUSH QSHIFT [facility] Last Admin: 07/30/24 14:25 Dose: 3 ml Documented By: LORIN Tamsulosin HCl (Tamsulosin Hcl 0.4 Mg Capsule) 0.8 mg PO BEDTIME [facility] Last Admin: 07/30/24 19:58 Dose: 0.8 mg Documented By: HILDA Labs 07/28/24 07:53 07/31/24 06:50 Labs: Laboratory Results - last 24 hr 07/31/24 06:50 Hold Purple Top SEE NOTE Anion Gap 13 Estim Creat Clear Calc 88.0 Estimated GFR > 60 Random Glucose 106 Calcium 8.9 Assessment and Plan (1) Pulmonary aspiration: Status: Acute (2) Schizoaffective disorder: Status: Acute (3) Catatonia: Status: Acute Plan 59-year-old male with history schizoaffective disorder who was initially admitted to inpatient psychiatric floor June 21 due to worsening catatonia. He received scheduled ECT following which time his oxygen saturations dropped, concern for aspiration and he was admitted to the ICU 07/09 where he started on tube feeds after failing swallow evaluation, received multiple doses of ketamine and had mental state alternating between catatonia and significant agitation requiring ketamine drip. He was intubated 07/17 due to respiratory distress in the setting of likely aspiration. Extubated 07/18. Downgraded to medical floor on 07/22 and sent back to ICU 07/23 for further planned ketamine infusions. He was downgraded back to the medical floor again on 07/27 as no further ketamine infusions plan at this time. Depression with decompensated schizophrenia, catatonia and agitation Status post multiple incisions of ketamine, last on 07/26 Continue Clozaril Psychiatric team following doing much better, awake, communicating, eating, plan to tx back to psychiatric floor for further management of catatonia Aspiration PNA requiring ICU and intubation s/p ampicillin now on room air Dysphagia Tolerating pureed diet Aspiration precautions DTI sacrum Seen by wound care nurse Off Load Pressure with Q2 hr turns and use of pillows>Apply skin prep to wound bed and periwound. Apply with foam dressing to aid in off loading and protection from friction. Change every 3 days and PRN. DVT prophylaxis-Lovenox Full code Quality Stroke Does the patient have a stroke diagnosis?: No VTE Prior VTE?: No VTE Risk Level:: Medical - low VTE Device Contraindication: N/A - Device Ordered VTE Drug Contraindication: N/A - Med Ordered
[2024-07-31 11:25] VITALS: BP 137/71; PULSE 99; RESP 16; TEMP 36.3; O2SAT 92
--- NOTE | 2024-07-31 11:59 | MHC.CLN ---
F/U PT CURRENTLY WITHOUT A DIET ORDER PT'S DIET ADVANCED TO GRD M/S PER ROLLER SHOP UTILITY WORKER ON 07/30/24 PREVIOUS PO INTAKE 25% PT WITH INCREASED NUTRITION RISK R/T PRESSURE INJURY RECOMMEND RE-STARTING MAGIC CUP TID AND ENSURE BID TO INCREASE KCALS AND PROMOTE WOUND HEALING MAGIC CUP PROVIDES 870KCALS, 27G PROTEIN ENSURE BID PROVIDES 700KCALS, 40G PROTEIN FOLLOWING FOR DIET ADVANCEMENT
--- NOTE | 2024-07-31 14:13 | MHC.SL.SWA ---
Speech Pathologist Impression: Mild oropharyngeal dysphagia Risk of Aspiration Due to: Medically Fragile Neurological Condition History of Pneumonia Poor PO Intake Weak Cough Weak Voice Dysphasia Diet Status: Recommend UPGRADE to GROUND/MECH ALTERED solids (NDD2) w/ extra sauce/gravy. Continue with THIN liquids (NO STRAWS). Pills crushed in puree when possible, otherwise cut 1/2 in puree. Pt requires 1-1 assistance w/ feeding to load bites onto spoon. Alternate liquids/solids. Liquid Consistency and Strategies for Safe Swallow: Liquid Intake Recommendation: Thin Liquid Intake Strategies: Small Sips No Straws Solid Food Consistency: Dietary Recommendations: Grnd/Mech Altered (NDD2) Additional Modifications to Solid Foods: Oral Medication Intake: Crushed with Puree Please contact the pharmacy regarding appropriate crushable or liquid drug formulations that are available whenever modified delivery is recommended. Compensatory Strategies and Precautions to be Taken for Safe Swallow: Sitting Upright (90 deg) Small Bites and Sips Alternate Liquids/Solids Avoid Specific Foods Supervision While Eating and Drinking for Safe Swallow: Total Assistance (1:1) Foods to Avoid: Mixed consistencies Swallowing Recommended Treatments: Compens. Strategy Educat. Recommendation for Speech: Inpatient Speech Therapy Comment: Pt diet upgraded yesterday. Pt seen for dysphagia tx today, more responsive and agreed to HOB elevated to 80degrees. Pt only wanted water and gingerale. Pt tolerated sips of thins by cup and by straw with adequate coordination. Pt mildly impulsive with drinking liquids. After approximately 8oz of fluid, pt elicited one cough. Cough considered WNL. Pt stated he usually sits up when he eats, DIESEL ENGINE ERECTOR concurred that would be safest. Pt continues to be pragmatic in refusing PO and accepting treatment. DIESEL ENGINE ERECTOR will follow. Frequency/Duration: M-F daily Date Range for Service Req: Timeline to reassess: Bonding Supervisor Clinican/Clinical Fellow: No Supervisory Statement: I have reviewed and agree with the student/clinical fellow's documentation: N/A Speech Language Pathologist: Francia Pink M.S., [facility]-DIESEL ENGINE ERECTOR
[2024-07-31 15:15] VITALS: BP 136/64; PULSE 90; RESP 18; TEMP 37; O2SAT 93
--- NOTE | 2024-07-31 16:11 | MHC.CM.PN ---
Per MD rounds patient will transfer to [facility] when a bed is available.
[2024-07-31 19:31] VITALS: BP 130/79; PULSE 89; RESP 18; TEMP 36.9; O2SAT 94
[2024-07-31] MEDS: Tamsulosin HCL 0.4 MG CAPSULE 0.8 MG PO (19:37)
[2024-07-31 23:16] VITALS: BP 120/77; PULSE 93; RESP 18; TEMP 36.8; O2SAT 94
[2024-08-01] VITALS (16 sets, daily range): BP systolic 112–148; BP diastolic 61–84; PULSE 75–105; RESP 16–18; TEMP 36–37.3; O2SAT 94–98
[2024-08-01] MEDS: Ketamine HCl 500 MG in 0.9 % Sodium Chloride 250 ML 21.4 MG IV (08:09)
[2024-08-01] MEDS: Memantine HCl 5 MG TABLET PO ×2 (11:28→20:28)
--- NOTE | 2024-08-01 15:44 | PC.NURSE ---
au cathr removed at 1530. next time pt should void at 2130.
[2024-08-01] MEDS: 0.9 % Sodium Chloride Flush 3 ML SYRINGE IVFLUSH ×2 (16:01→20:28)
[2024-08-01] MEDS: Enoxaparin Sodium 40 MG/0.4 ML SYRINGE SUBCUT (16:02)
--- NOTE | 2024-08-01 16:05 | P.PNIM_ITS ---
Subjective Subjective Date of Service: 08/01/24 Interval History: seen and examined this morning Follow-up for catatonia Patient awake, alert, answering questions appropriately Constitutional Constitutional: Denies chills and Denies fever(s) Cardiovascular Cardiovascular: Denies chest pain and Denies dyspnea Respiratory Respiratory: Denies dyspnea Gastrointestinal Gastrointestinal: Denies abdominal pain Physical Exam 2 Vital Signs: Vital Signs: Last Vital Signs Temp 98.2 F 08/01/24 15:29 Pulse 92 08/01/24 15:29 Resp 18 08/01/24 15:29 BP 126/61 08/01/24 15:29 Pulse Ox 96 08/01/24 15:29 O2 Del Method Room Air 08/01/24 15:29 O2 Flow Rate 1 07/24/24 23:00 FiO2 80 07/18/24 15:17 Oxygen Flow Rate 1 07/09/24 13:21 BMI result Body Mass Index 26.5 Const: General: alert and awake Nutritional Appearance: average body habitus Orientation/consciousness: patient oriented x3 Resp: Effort & Inspection: normal respiratory effort, able to speak in complete sentences, no respiratory distress and no use of accessory muscles Cardio: Rate: regular rate GI: Inspection: No distended Palpation (GI): Soft to palpation and nontender : Other: au in place draining clear yellow urine Neuro: General: patient oriented x3, moves all extremities and CN's II-XI intact bilaterally Extrem: General: Yes no pedal edema Objective Data Active Medications Clozapine (Clozapine 25 Mg Tablet) 50 mg PO BEDTIME [facility] Last Admin: 07/29/24 20:33 Dose: 50 mg Documented By: RUTH Enoxaparin Sodium (Enoxaparin Sodium 40 Mg/0.4 Ml Syringe) 40 mg SUBCUT Q24H [facility] Last Admin: 08/01/24 16:02 Dose: 40 mg Documented By: JOSÉ MIGUEL Melatonin (Melatonin 3 Mg Tablet) 6 mg PO BEDTIME [facility] Last Admin: 07/29/24 20:33 Dose: 6 mg Documented By: RUTH Memantine (Memantine Hcl 5 Mg Tablet) 5 mg PO BID [facility] Last Admin: 08/01/24 11:28 Dose: 5 mg Documented By: JOSÉ MIGUEL Sodium Chloride (0.9 % Sodium Chloride Flush 3 Ml Syringe) 3 ml IVFLUSH QSHIFT [facility] Last Admin: 08/01/24 16:01 Dose: 3 ml Documented By: JOSÉ MIGUEL Tamsulosin HCl (Tamsulosin Hcl 0.4 Mg Capsule) 0.8 mg PO BEDTIME [facility] Last Admin: 07/31/24 19:37 Dose: 0.8 mg Documented By: NYLA Labs 07/28/24 07:53 07/31/24 06:50 Assessment and Plan (1) Pulmonary aspiration: Status: Acute (2) Schizoaffective disorder: Status: Acute (3) Catatonia: Status: Acute Plan 59-year-old male with history schizoaffective disorder who was initially admitted to inpatient psychiatric floor June 21 due to worsening catatonia. He received scheduled ECT following which time his oxygen saturations dropped, concern for aspiration and he was admitted to the ICU 07/09 where he started on tube feeds after failing swallow evaluation, received multiple doses of ketamine and had mental state alternating between catatonia and significant agitation requiring ketamine drip. He was intubated 07/17 due to respiratory distress in the setting of likely aspiration. Extubated 07/18. Downgraded to medical floor on 07/22 and sent back to ICU 07/23 for further planned ketamine infusions. He was downgraded back to the medical floor again on 07/27 as no further ketamine infusions plan at this time. Depression with decompensated schizophrenia, catatonia and agitation Status post multiple incisions of ketamine, last on 08/01 Continue Clozaril Psychiatric team following doing much better, awake, communicating, eating, plan to tx back to psychiatric floor for further management of catatonia likely on Monday urinary retention flomax held in ICU, dose resumed and increased to 0.8mg remove au at 48 hours for voiding trial if fails voiding trial we will consult Urology Aspiration PNA requiring ICU and intubation s/p ampicillin now on room air Dysphagia Tolerating pureed diet Aspiration precautions DTI sacrum Seen by wound care nurse Off Load Pressure with Q2 hr turns and use of pillows>Apply skin prep to wound bed and periwound. Apply with foam dressing to aid in off loading and protection from friction. Change every 3 days and PRN. DVT prophylaxis-Lovenox Full code Quality Stroke Does the patient have a stroke diagnosis?: No VTE Prior VTE?: No VTE Risk Level:: Medical - low VTE Device Contraindication: N/A - Device Ordered VTE Drug Contraindication: N/A - Med Ordered
--- NOTE | 2024-08-01 17:10 | MHC.SL.SWA ---
Speech Pathologist Impression: Risk of Aspiration Due to: Medically Fragile Neurological Condition History of Pneumonia Poor PO Intake Weak Cough Weak Voice Dysphasia Diet Status: Recommend no change at this time, continue on Ground Mechanical diet with Thin liquids, pills whole or crushed in puree. Diet should be continued at transition to first floor/Geripscyh. Liquid Consistency and Strategies for Safe Swallow: Liquid Intake Recommendation: Thin Liquid Intake Strategies: Small Sips Solid Food Consistency: Dietary Recommendations: Grnd/Mech Altered (NDD2) Additional Modifications to Solid Foods: Oral Medication Intake: Whole with Puree Please contact the pharmacy regarding appropriate crushable or liquid drug formulations that are available whenever modified delivery is recommended. Compensatory Strategies and Precautions to be Taken for Safe Swallow: Sitting Upright (90 deg) Liquids from Cup Liquids from Straw Small Bites and Sips Alternate Liquids/Solids Supervision While Eating and Drinking for Safe Swallow: Total Assistance (1:1) Foods to Avoid: Mixed consistencies Swallowing Recommended Treatments: Compens. Strategy Educat. Recommendation for Speech: Inpatient Speech Therapy Comment: Patient seen today at lunch while watching the [employer] on TV. Patient engaged in pleasant conversational interaction about this TV program, demonstrating improved social communication. RAMPMAN adjusted tray so that food was easily accessible, provided straws for all drinks. Benjamin initially attempted to eat independently, but then stated it was too difficult and asked for help/direct feeding. It was noted that on too large a mouthful of ground meat with potatoes was followed by an episode of repeated coughing. Bites were made much smaller, which Benjamin then tolerated well. Benjamin was independently drinking available drinks by straw, and noted to do so after a bite of food (without being cued). Apart from episode of coughing on a bite of two much food, Benjamin tolerated the meal well. Recommend no change at this time, continue on Ground Mechanical diet with Thin liquids, pills whole or crushed in puree. Diet should be continued at transition to first floor/Geripscyh. Frequency/Duration: M-F daily Date Range for Service Req: Timeline to reassess: Esthetician Facialist Clinican/Clinical Fellow: No Supervisory Statement: I have reviewed and agree with the student/clinical fellow's documentation: N/A Speech Language Pathologist: Vicki Jane M.A., CCC-RAMPMAN
[2024-08-01] MEDS: Tamsulosin HCL 0.4 MG CAPSULE 0.8 MG PO (20:28)
[2024-08-01] MEDS: Melatonin 3 MG TABLET 6 MG PO (20:28)
[2024-08-01] MEDS: cloZAPine 25 MG TABLET 50 MG PO (20:28)
[2024-08-02] VITALS (7 sets, daily range): BP systolic 106–136; BP diastolic 56–84; PULSE 71–87; RESP 16–20; TEMP 36.1–36.9; O2SAT 93–98
[2024-08-02] MEDS: OLANZapine 10 MG VIAL IM (01:40)
[2024-08-02] MEDS: 0.9 % Sodium Chloride Flush 3 ML SYRINGE IVFLUSH ×3 (09:01→20:24)
[2024-08-02] MEDS: Memantine HCl 5 MG TABLET PO ×2 (09:01→20:24)
[2024-08-02 09:31] LABS: Hematocrit 39.8 % (42.0-52.0); Hemoglobin 13.5 g/dl (14.0-18.0); Mean Corpuscular HGB Conc 33.9 g/dl (31.0-36.0); Mean Corpuscular Hemoglobin 28.4 pg (27.0-33.0); Mean Corpuscular Volume 83.6 fL (80.0-98.0); Platelet Count 198 X10*3/uL (160-400); Red Blood Count 4.76 X10*6/uL (4.60-5.80); Red Cell Distribution Width 13.7 % (11.0-16.0); White Blood Count 6.5 X10*3/uL (4.8-10.8)
[2024-08-02 09:43] LABS: Anion Gap 13 (12-20); Blood Urea Nitrogen 15 mg/dL (9-16); Calcium 9.5 mg/dL (8.4-10.2); Carbon Dioxide 26 mmol/L (22-29); Chloride 105 mmol/L (96-108); Creatinine Clr Calc Pharmacy 66.7; Estimated Glomerular Filt Rate > 60; Glucose Random 130 mg/dL (60-115); Potassium 3.8 mmol/L (3.3-5.1); Sodium 140 mmol/L (135-145)
--- NOTE | 2024-08-02 10:42 | MHC.CM.PN ---
Patient is medically cleared for dc to [facility], pending bed availability; CM will follow.
--- NOTE | 2024-08-02 11:55 | MHC.CLN ---
F/U PO INTAKE 25% PT'S DIET ADVANCED TO GRD M/S PER COIN DEALER RECEIVING MAGIC CUP TID AND ENSURE BID TO INCREASE KCALS AND PROMOTE WOUND HEALING MAGIC CUP PROVIDES 870KCALS, 27G PROTEIN ENSURE BID PROVIDES 700KCALS, 40G PROTEIN CONTINUE TO MONITOR PO INTAKE AND ENCOURAGE SUPPLEMENTS
--- NOTE | 2024-08-02 15:55 | MHC.SL.SWA ---
Speech Pathologist Impression: Risk of Aspiration, Oropharyngeal Dysphagia Risk of Aspiration Due to: Medically Fragile Neurological Condition History of Pneumonia Poor PO Intake Weak Cough Weak Voice Dysphasia Diet Status: No Change Liquid Consistency and Strategies for Safe Swallow: Liquid Intake Recommendation: Thin Liquid Intake Strategies: Small Sips Solid Food Consistency: Dietary Recommendations: Grnd/Mech Altered (NDD2) Oral Medication Intake: Whole with Puree Please contact the pharmacy regarding appropriate crushable or liquid drug formulations that are available whenever modified delivery is recommended. Compensatory Strategies and Precautions to be Taken for Safe Swallow: Sitting Upright (90 deg) Liquids from Cup Liquids from Straw Small Bites and Sips Alternate Liquids/Solids Supervision While Eating and Drinking for Safe Swallow: Total Assistance (1:1) Foods to Avoid: Mixed consistencies Swallowing Recommended Treatments: Compens. Strategy Educat. Recommendation for Speech: Inpatient Speech Therapy Frequency/Duration: M-F daily Date Range for Service Req: Timeline to reassess: Video Game Developer Clinican/Clinical Fellow: No Supervisory Statement: I have reviewed and agree with the student/clinical fellow's documentation: N/A Speech Language Pathologist: Nona Whitmore M.A., CCC-MEDICAL ASSISTANT PER DIEM
--- NOTE | 2024-08-02 16:22 | HO.PM.IMPN ---
Subjective Subjective Date of Service: 08/02/24 Interval History: seen and examined this morning follow up for catatonia/agitation has had agitation overnight and received IM zyprexa awake, alert, slow to respond but calm and cooperative during the day voiding without difficulty Review of Systems Review of Systems: Yes all other systems are reviewed and are negative Physical Exam Vital Signs: Vital Signs: Last Vital Signs Temp 97.4 F 08/02/24 13:37 Pulse 87 08/02/24 15:26 Resp 18 08/02/24 15:26 BP 116/84 08/02/24 15:26 Pulse Ox 93 08/02/24 15:26 O2 Del Method Room Air 08/02/24 15:26 O2 Flow Rate 1 07/24/24 23:00 FiO2 80 07/18/24 15:17 Oxygen Flow Rate 1 07/09/24 13:21 BMI result Body Mass Index 26.5 Const: General: cooperative, comfortable, no acute distress, alert and awake Nutritional Appearance: average body habitus Orientation/consciousness: patient oriented x3 Resp: Effort & Inspection: normal respiratory effort, able to speak in complete sentences, no respiratory distress and no use of accessory muscles Cardio: Rate: regular rate GI: Inspection: No distended Palpation (GI): Soft to palpation and nontender : Other: au in place draining clear yellow urine Neuro: General: patient oriented x3, moves all extremities and CN's II-XI intact bilaterally Extrem: General: Yes no pedal edema Objective Data Active Medications Clozapine (Clozapine 25 Mg Tablet) 75 mg PO BEDTIME [facility] Divalproex Sodium (Divalproex Sodium 250 Mg Tablet.) 250 mg PO BID [facility] Enoxaparin Sodium (Enoxaparin Sodium 40 Mg/0.4 Ml Syringe) 40 mg SUBCUT Q24H [facility] Last Admin: 08/01/24 16:02 Dose: 40 mg Documented By: JOSÉ MIGUEL Lorazepam (Lorazepam 1 Mg Tablet) 1 mg PO TID [facility] Melatonin (Melatonin 3 Mg Tablet) 6 mg PO BEDTIME [facility] Last Admin: 08/01/24 20:28 Dose: 6 mg Documented By: CRISTI Memantine (Memantine Hcl 5 Mg Tablet) 5 mg PO BID [facility] Last Admin: 08/02/24 09:01 Dose: 5 mg Documented By: JOSÉ MIGUEL Olanzapine (Olanzapine Odt 10 Mg Tab.Rapdis) 5 mg TRANSLINGU BID PRN PRN Reason: aggitation Sodium Chloride (0.9 % Sodium Chloride Flush 3 Ml Syringe) 3 ml IVFLUSH QSHIFT [facility] Last Admin: 08/02/24 09:01 Dose: 3 ml Documented By: JOSÉ MIGUEL Tamsulosin HCl (Tamsulosin Hcl 0.4 Mg Capsule) 0.8 mg PO BEDTIME [facility] Last Admin: 08/01/24 20:28 Dose: 0.8 mg Documented By: CRISTI Labs 08/02/24 09:18 08/02/24 09:18 Labs: Laboratory Results - last 24 hr 08/02/24 09:18 MCV 83.6 MCH 28.4 MCHC 33.9 RDW 13.7 Plt Count 198 D MPV 12.0 Absolute Nucleated RBC 0.000 Nucleated RBC % (auto) 0.0 Anion Gap 13 Estim Creat Clear Calc 66.7 Estimated GFR > 60 Random Glucose 130 H Calcium 9.5 D Assessment and Plan (1) Schizoaffective disorder: Status: Acute (2) Catatonia: Status: Acute Plan 59-year-old male with history schizoaffective disorder who was initially admitted to inpatient psychiatric floor June 21 due to worsening catatonia. He received scheduled ECT following which time his oxygen saturations dropped, concern for aspiration and he was admitted to the ICU 07/09 where he started on tube feeds after failing swallow evaluation, received multiple doses of ketamine and had mental state alternating between catatonia and significant agitation requiring ketamine drip. He was intubated 07/17 due to respiratory distress in the setting of likely aspiration. Extubated 07/18. Downgraded to medical floor on 07/22 and sent back to ICU 07/23 for further planned ketamine infusions. He was downgraded back to the medical floor again on 07/27 as no further ketamine infusions plan at this time. Depression with decompensated schizophrenia, catatonia and agitation Status post multiple incisions of ketamine, last on 08/01 Continue Clozaril overall doing much better, awake, communicating, eating, plan to tx back to psychiatric floor for further management of catatonia likely on Monday - however having episodes of agitation at night scheduled po ativan and prn zyprexa ordered per recommendation of psychiatric team Psychiatric team following urinary retention flomax held in ICU, dose resumed and increased to 0.8mg au removed, voiding without difficulty Aspiration PNA requiring ICU and intubation s/p ampicillin now on room air Dysphagia Tolerating pureed diet Aspiration precautions DTI sacrum Seen by wound care nurse Off Load Pressure with Q2 hr turns and use of pillows>Apply skin prep to wound bed and periwound. Apply with foam dressing to aid in off loading and protection from friction. Change every 3 days and PRN. DVT prophylaxis-Lovenox Full code Quality Stroke Does the patient have a stroke diagnosis?: No VTE Prior VTE?: No VTE Risk Level:: Medical - low VTE Device Contraindication: N/A - Device Ordered VTE Drug Contraindication: N/A - Med Ordered
[2024-08-02] MEDS: LORazepam 1 MG TABLET PO ×2 (17:00→20:23)
[2024-08-02] MEDS: Enoxaparin Sodium 40 MG/0.4 ML SYRINGE SUBCUT (17:07)
--- NOTE | 2024-08-02 18:42 | PC.NURSE ---
Pt being agitated, aggressive, uncooperative and inappropriate. Using profanities towards staff, spitting, grabbing SUPERVISOR RIPRAP PLACING's arm firmly. Provider notified. Dr. Huerta in to see patient. New medications ordered. Pt cooperative at present. Took medications as prescribed. [place] Cath fell off and stephanie-care given. Bladder scanned for 339cc. [place] applied.
[2024-08-02] MEDS: Melatonin 3 MG TABLET 6 MG PO (20:23)
[2024-08-02] MEDS: cloZAPine 25 MG TABLET 75 MG PO (20:24)
[2024-08-02] MEDS: Divalproex Sodium 250 MG TABLET.DR PO (20:24)
[2024-08-02] MEDS: Tamsulosin HCL 0.4 MG CAPSULE 0.8 MG PO (20:24)
[2024-08-03] VITALS (8 sets, daily range): BP systolic 105–122; BP diastolic 64–73; PULSE 67–89; RESP 16–19; TEMP 36.3–36.6; O2SAT 93–97
[2024-08-03] MEDS: Divalproex Sodium 250 MG TABLET.DR PO ×2 (08:00→19:35)
[2024-08-03] MEDS: Memantine HCl 5 MG TABLET PO ×2 (08:01→19:35)
[2024-08-03] MEDS: LORazepam 1 MG TABLET PO ×3 (08:01→19:35)
--- NOTE | 2024-08-03 08:46 | HO.PM.IMPN ---
Subjective Subjective Date of Service: 08/03/24 Interval History: seen and examined this morning follow up for catatonia/agitation awake, alert, slow to respond but calm and cooperative during the day voiding without difficulty Review of Systems Review of Systems: Yes all other systems are reviewed and are negative Physical Exam Vital Signs: Vital Signs: Last Vital Signs Temp 98 F 08/03/24 06:52 Pulse 77 08/03/24 06:52 Resp 16 08/03/24 06:52 BP 113/68 08/03/24 06:52 Pulse Ox 94 08/03/24 06:52 O2 Del Method Room Air 08/03/24 06:52 O2 Flow Rate 1 07/24/24 23:00 FiO2 80 07/18/24 15:17 Oxygen Flow Rate 1 07/09/24 13:21 BMI result Body Mass Index 26.5 alert, occassional confusion Objective Data Active Medications Clozapine (Clozapine 25 Mg Tablet) 75 mg PO BEDTIME [facility] Last Admin: 08/02/24 20:24 Dose: 75 mg Documented By: DIALLO Divalproex Sodium (Divalproex Sodium 250 Mg Tablet.Dr) 250 mg PO BID [facility] Last Admin: 08/03/24 08:00 Dose: 250 mg Documented By: MANA Enoxaparin Sodium (Enoxaparin Sodium 40 Mg/0.4 Ml Syringe) 40 mg SUBCUT Q24H [facility] Last Admin: 08/02/24 17:07 Dose: 40 mg Documented By: SATISH Lorazepam (Lorazepam 1 Mg Tablet) 1 mg PO TID [facility] Last Admin: 08/03/24 08:01 Dose: 1 mg Documented By: MANA Melatonin (Melatonin 3 Mg Tablet) 6 mg PO BEDTIME [facility] Last Admin: 08/02/24 20:23 Dose: 6 mg Documented By: DIALLO Memantine (Memantine Hcl 5 Mg Tablet) 5 mg PO BID [facility] Last Admin: 08/03/24 08:01 Dose: 5 mg Documented By: MANA Olanzapine (Olanzapine Odt 10 Mg Tab.Rapdis) 5 mg TRANSLINGU BID PRN PRN Reason: aggitation Sodium Chloride (0.9 % Sodium Chloride Flush 3 Ml Syringe) 3 ml IVFLUSH QSHIFT [facility] Last Admin: 08/02/24 20:24 Dose: 3 ml Documented By: DIALLO Tamsulosin HCl (Tamsulosin Hcl 0.4 Mg Capsule) 0.8 mg PO BEDTIME [facility] Last Admin: 08/02/24 20:24 Dose: 0.8 mg Documented By: DIALLO Labs 08/02/24 09:18 08/02/24 09:18 Labs: Laboratory Results - last 24 hr 08/02/24 09:18 MCV 83.6 MCH 28.4 MCHC 33.9 RDW 13.7 Plt Count 198 D MPV 12.0 Absolute Nucleated RBC 0.000 Nucleated RBC % (auto) 0.0 Anion Gap 13 Estim Creat Clear Calc 66.7 Estimated GFR > 60 Random Glucose 130 H Calcium 9.5 D Assessment and Plan (1) Schizoaffective disorder: Status: Acute (2) Catatonia: Status: Acute Plan 59-year-old male with history schizoaffective disorder who was initially admitted to inpatient psychiatric floor June 21 due to worsening catatonia. He received scheduled ECT following which time his oxygen saturations dropped, concern for aspiration and he was admitted to the ICU 07/09 where he started on tube feeds after failing swallow evaluation, received multiple doses of ketamine and had mental state alternating between catatonia and significant agitation requiring ketamine drip. He was intubated 07/17 due to respiratory distress in the setting of likely aspiration. Extubated 07/18. Downgraded to medical floor on 07/22 and sent back to ICU 07/23 for further planned ketamine infusions. He was downgraded back to the medical floor again on 07/27 as no further ketamine infusions plan at this time. Depression with decompensated schizophrenia, catatonia and agitation Status post multiple incisions of ketamine, last on 08/01 Continue Clozaril overall doing much better, awake, communicating, eating, plan to tx back to psychiatric floor for further management of catatonia likely on Monday - however having episodes of agitation at night scheduled po ativan and prn zyprexa ordered per recommendation of psychiatric team Psychiatric team following urinary retention flomax held in ICU, dose resumed and increased to 0.8mg au removed, voiding without difficulty Aspiration PNA requiring ICU and intubation s/p ampicillin now on room air Dysphagia Tolerating pureed diet Aspiration precautions DTI sacrum Seen by wound care nurse Off Load Pressure with Q2 hr turns and use of pillows>Apply skin prep to wound bed and periwound. Apply with foam dressing to aid in off loading and protection from friction. Change every 3 days and PRN. DVT prophylaxis-Lovenox Full code Quality Stroke Does the patient have a stroke diagnosis?: No VTE Prior VTE?: No VTE Risk Level:: Medical - low VTE Device Contraindication: N/A - Device Ordered VTE Drug Contraindication: N/A - Med Ordered
[2024-08-03] MEDS: Enoxaparin Sodium 40 MG/0.4 ML SYRINGE SUBCUT (14:00)
[2024-08-03] MEDS: 0.9 % Sodium Chloride Flush 3 ML SYRINGE IVFLUSH ×2 (14:03→19:37)
[2024-08-03] MEDS: Melatonin 3 MG TABLET 6 MG PO (19:34)
[2024-08-03] MEDS: cloZAPine 25 MG TABLET 75 MG PO (19:34)
[2024-08-03] MEDS: Tamsulosin HCL 0.4 MG CAPSULE 0.8 MG PO (19:35)
[2024-08-03] MEDS: OLANZapine ODT 10 MG TAB.RAPDIS 5 MG TRANSLINGU (19:36)
[2024-08-04] VITALS (7 sets, daily range): BP systolic 94–118; BP diastolic 55–69; PULSE 63–93; RESP 14–20; TEMP 36.1–37; O2SAT 95–99
[2024-08-04 08:43] LABS: Neut%MD 67.6 %; WBCANC 5.9 X10*3/uL
[2024-08-04] MEDS: LORazepam 1 MG TABLET PO ×3 (08:47→20:21)
[2024-08-04] MEDS: Divalproex Sodium 250 MG TABLET.DR PO ×2 (08:47→20:21)
[2024-08-04] MEDS: Memantine HCl 5 MG TABLET PO ×2 (08:47→20:21)
[2024-08-04] MEDS: 0.9 % Sodium Chloride Flush 3 ML SYRINGE IVFLUSH ×3 (08:55→20:25)
--- NOTE | 2024-08-04 09:26 | P.PNIM_ITS ---
Subjective Subjective Date of Service: 08/04/24 Interval History: seen and examined this morning follow up for catatonia/agitation awake, alert, slow to respond but calm and cooperative during the day voiding without difficulty Review of Systems Review of Systems: Yes all other systems are reviewed and are negative Physical Exam 2 Vital Signs: Vital Signs: Last Vital Signs Temp 97 F 08/04/24 06:57 Pulse 68 08/04/24 06:57 Resp 16 08/04/24 06:57 BP 110/58 L 08/04/24 06:57 Pulse Ox 95 08/04/24 06:57 O2 Del Method Room Air 08/04/24 06:57 O2 Flow Rate 1 07/24/24 23:00 FiO2 80 07/18/24 15:17 Oxygen Flow Rate 1 07/09/24 13:21 BMI result Body Mass Index 26.5 Appearing in no acute distress lung sounds are clear to auscultation heart regular rate rhythm, clear S1, S2 positive bowel sounds, abdomen is soft, nontender neuro patient is alert Objective Data Active Medications Clozapine (Clozapine 25 Mg Tablet) 75 mg PO BEDTIME [facility] Last Admin: 08/03/24 19:34 Dose: 75 mg Documented By: SASHA Divalproex Sodium (Divalproex Sodium 250 Mg Tablet.Dr) 250 mg PO BID [facility] Last Admin: 08/04/24 08:47 Dose: 250 mg Documented By: MANA Enoxaparin Sodium (Enoxaparin Sodium 40 Mg/0.4 Ml Syringe) 40 mg SUBCUT Q24H [facility] Last Admin: 08/03/24 14:00 Dose: 40 mg Documented By: MANA Lorazepam (Lorazepam 1 Mg Tablet) 1 mg PO TID [facility] Last Admin: 08/04/24 08:47 Dose: 1 mg Documented By: MANA Melatonin (Melatonin 3 Mg Tablet) 6 mg PO BEDTIME [facility] Last Admin: 08/03/24 19:34 Dose: 6 mg Documented By: SASHA Memantine (Memantine Hcl 5 Mg Tablet) 5 mg PO BID [facility] Last Admin: 08/04/24 08:47 Dose: 5 mg Documented By: MANA Olanzapine (Olanzapine Odt 10 Mg Tab.Rapdis) 5 mg TRANSLINGU BID PRN PRN Reason: aggitation Last Admin: 08/03/24 19:36 Dose: 5 mg Documented By: SASHA Sodium Chloride (0.9 % Sodium Chloride Flush 3 Ml Syringe) 3 ml IVFLUSH QSHIFT [facility] Last Admin: 08/04/24 08:55 Dose: 3 ml Documented By: MANA Tamsulosin HCl (Tamsulosin Hcl 0.4 Mg Capsule) 0.8 mg PO BEDTIME [facility] Last Admin: 08/03/24 19:35 Dose: 0.8 mg Documented By: SASHA Labs 08/02/24 09:18 08/02/24 09:18 Labs: Laboratory Results - last 24 hr 08/04/24 08:10 Absolute Neuts (auto) 4.0 Assessment and Plan (1) Schizoaffective disorder: Status: Acute (2) Catatonia: Status: Acute Plan 59-year-old male with history schizoaffective disorder who was initially admitted to inpatient psychiatric floor June 21 due to worsening catatonia. He received scheduled ECT following which time his oxygen saturations dropped, concern for aspiration and he was admitted to the ICU 07/09 where he started on tube feeds after failing swallow evaluation, received multiple doses of ketamine and had mental state alternating between catatonia and significant agitation requiring ketamine drip. He was intubated 07/17 due to respiratory distress in the setting of likely aspiration. Extubated 07/18. Downgraded to medical floor on 07/22 and sent back to ICU 07/23 for further planned ketamine infusions. He was downgraded back to the medical floor again on 07/27 as no further ketamine infusions plan at this time. Depression with decompensated schizophrenia, catatonia and agitation Status post multiple incisions of ketamine, last on 08/01 Continue Clozaril overall doing much better, awake, communicating, eating, plan to tx back to psychiatric floor for further management of catatonia likely on Monday - however having episodes of agitation at night scheduled po ativan and prn zyprexa ordered per recommendation of psychiatric team Psychiatric team following urinary retention flomax held in ICU, dose resumed and increased to 0.8mg au removed, voiding without difficulty Aspiration PNA requiring ICU and intubation s/p ampicillin now on room air Dysphagia Tolerating pureed diet Aspiration precautions DTI sacrum Seen by wound care nurse Off Load Pressure with Q2 hr turns and use of pillows>Apply skin prep to wound bed and periwound. Apply with foam dressing to aid in off loading and protection from friction. Change every 3 days and PRN. DVT prophylaxis-Lovenox Full code Quality Stroke Does the patient have a stroke diagnosis?: No VTE Prior VTE?: No VTE Risk Level:: Medical - low VTE Device Contraindication: N/A - Device Ordered VTE Drug Contraindication: N/A - Med Ordered
--- NOTE | 2024-08-04 10:54 | P.CNPS_ITS ---
History of Present Illness Date of Service: 08/04/2024 Chief Complaint: catatonia Reason for Consult: Follow up, catatonia Requesting physician: Steven Huerta Sources of Information: patient interviewed and chart reviewed Additional Sources of Information: Pt's primary RN HPI Narrative: Pt seen 08/03 when he was calm, sleeping, without distress. Pt seen 08/04. He is alert, oriented to person, talkative, I know you. When oriented to how he knows tw, I know him too (referencing Dr. Huerta). Pt appears calm, comfortable, attentive to his environment. He reports he feels OK. His team reports he is walking, able to follow instructions and has used Olanzapine at night for agitation which he is agreeable to taking. Pt has solid eye contact throughout our discussion. He does have delay and paucity, most of his responses are nods of yes and no with a few words added. He appears to understand what is being discussed. He is able to smile spontaneously at times. He denies pain, distress with nods. Past Psychiatric History: Inpatient: multiple in the past. h/o ECT for catatonia. OP: [facility] Past medication trials: clozaril, ativan, sertraline, olanzapine. Review of Systems Review of Systems Denies today [facility] Medical History Hospital discharge follow-up Mild sleep apnea Tardive dyskinesia Nocturnal hypoxia Routine medical exam Joint inflammation of right hand and wrist Status post fall Adult general medical exam Screening for colon cancer Screening for prostate cancer Cough BPH (benign prostatic hyperplasia) Surgical History History of colonoscopy (~06/15/21) History of tooth extraction History of root canal procedure Family History: unknown Social History: lives independently, works, drives. apartment in [place]. Trauma History: unknown Diagnostics Vital Signs (24Hr): Vital Signs - 24 hr 08/03/24 11:01 08/03/24 16:00 08/03/24 19:26 Temperature 98 F 97.7 F 98 F Pulse Rate 69 89 86 Respiratory Rate 18 18 Blood Pressure 122/64 105/73 111/68 Pulse Oximetry 96 96 97 Oxygen Delivery Method Room Air Room Air Room Air 08/03/24 20:43 08/03/24 23:57 08/04/24 02:27 Temperature 97.4 F Pulse Rate 77 Respiratory Rate 16 18 16 Blood Pressure 106/64 Pulse Oximetry 93 Oxygen Delivery Method Room Air 08/04/24 04:00 08/04/24 06:57 Temperature 97.4 F 97 F Pulse Rate 63 68 Respiratory Rate 16 16 Blood Pressure 94/64 110/58 L Pulse Oximetry 96 95 Oxygen Delivery Method Room Air Room Air BMI result Body Mass Index 26.5 Labs 08/02/24 09:18 08/02/24 09:18 Labs: Laboratory Results - last 48 hr 08/04/24 08:10 Absolute Neuts (auto) 4.0 Imaging Radiology Impressions: ITS Impressions Chest X-Ray 07/11/24 11:00 IMPRESSION: Nasogastric tube unchanged in position. No acute cardiopulmonary abnormality. Electronically signed by: Jacob Hope MD 07/11/2024 11:27 AM EDT RP Chest X-Ray 07/19/24 12:20 IMPRESSION: NG tube with sidehole above the diaphragm. This device should be advanced 6 cm for optimal placement. Electronically signed by: Reinaldo Montes MD 07/19/2024 01:00 PM EDT RP Chest X-Ray 07/19/24 12:35 IMPRESSION: Well-positioned NG tube. No active pulmonary disease. Electronically signed by: Reinaldo Montes MD 07/19/2024 01:02 PM EDT RP Chest X-Ray 07/24/24 08:00 IMPRESSION: 1. NG tube positioned as detailed. Tip is likely within the proximal duodenum. Sidehole is likely within the antrum. 2. Lungs remain clear with minimal left base atelectasis. No pneumothorax. 3. Mildly gas distended loops of predominantly colon in the upper abdomen. Electronically signed by: Reinaldo Montes MD 07/24/2024 08:56 AM EDT RP Mental Status Exam Mental Status Exam Patient Appearance: Fatigued Patient Orientation: Person and Place Level of Consciousness: Alert Patient Behavior: Talkative, Cooperative and Good Eye Contact Mood Description: Calm and Constricted Affect Description: Calm and Constricted Ability to Follow Directions: Fair Speech Pattern: Spontaneous Speech Hallucinations: None (he does not appear to be responding to internal stimuli.) Thought Process: Slowed Thinking Thought Content: positive for [place] and positive for Circumstantial Judgement: Poor Medications Medications Current Medications Clozapine (Clozapine 25 Mg Tablet) 75 mg PO BEDTIME [facility] Last Admin: 08/03/24 19:34 Dose: 75 mg Divalproex Sodium (Divalproex Sodium 250 Mg Tablet.Dr) 250 mg PO BID [facility] Last Admin: 08/04/24 08:47 Dose: 250 mg Enoxaparin Sodium (Enoxaparin Sodium 40 Mg/0.4 Ml Syringe) 40 mg SUBCUT Q24H [facility] Last Admin: 08/03/24 14:00 Dose: 40 mg Lorazepam (Lorazepam 1 Mg Tablet) 1 mg PO TID [facility] Last Admin: 08/04/24 08:47 Dose: 1 mg Melatonin (Melatonin 3 Mg Tablet) 6 mg PO BEDTIME [facility] Last Admin: 08/03/24 19:34 Dose: 6 mg Memantine (Memantine Hcl 5 Mg Tablet) 5 mg PO BID [facility] Last Admin: 08/04/24 08:47 Dose: 5 mg Olanzapine (Olanzapine Odt 10 Mg Tab.Rapdis) 5 mg TRANSLINGU BID PRN PRN Reason: aggitation Last Admin: 08/03/24 19:36 Dose: 5 mg Sodium Chloride (0.9 % Sodium Chloride Flush 3 Ml Syringe) 3 ml IVFLUSH QSHIFT [facility] Last Admin: 08/04/24 08:55 Dose: 3 ml Tamsulosin HCl (Tamsulosin Hcl 0.4 Mg Capsule) 0.8 mg PO BEDTIME [facility] Last Admin: 08/03/24 19:35 Dose: 0.8 mg Allergies Allergies Allergy/AdvReac Type Severity Reaction Status Date / Time No Known Allergies [NKA] Allergy Unknown NONE Verified 06/19/24 20:43 Assessment & Plan Assessment & Plan (1) Schizoaffective disorder: Status: Acute Code(s): F25.9 - Schizoaffective disorder, unspecified (2) Catatonia: Status: Acute Code(s): F06.1 - Catatonic disorder due to known physiological condition Plan 08/04/24: Continue current treatment Total time managing care of this patient today ____ minutes.
[2024-08-04] MEDS: Enoxaparin Sodium 40 MG/0.4 ML SYRINGE SUBCUT (14:14)
[2024-08-04] MEDS: cloZAPine 25 MG TABLET 75 MG PO (20:21)
[2024-08-04] MEDS: Tamsulosin HCL 0.4 MG CAPSULE 0.8 MG PO (20:21)
[2024-08-04] MEDS: Melatonin 3 MG TABLET 6 MG PO (20:21)
[2024-08-05 03:41] VITALS: BP 116/58; PULSE 79; RESP 20; TEMP 36.2; O2SAT 95
[2024-08-05 07:20] VITALS: BP 117/60; PULSE 78; RESP 16; TEMP 36.2; O2SAT 96
[2024-08-05] MEDS: LORazepam 1 MG TABLET PO ×3 (07:53→20:21)
[2024-08-05] MEDS: Memantine HCl 5 MG TABLET PO ×2 (07:53→20:20)
[2024-08-05] MEDS: Divalproex Sodium 250 MG TABLET.DR PO ×2 (07:53→20:20)
[2024-08-05] MEDS: 0.9 % Sodium Chloride Flush 3 ML SYRINGE IVFLUSH ×3 (07:53→20:23)
--- NOTE | 2024-08-05 07:59 | P.PNIM_ITS ---
Subjective Subjective Date of Service: 08/05/24 Interval History: seen and examined this morning follow up for catatonia/agitation awake, alert, slow to respond but calm and cooperative during the day Review of Systems Review of Systems: Yes all other systems are reviewed and are negative Physical Exam 2 Vital Signs: Vital Signs: Last Vital Signs Temp 97.2 F 08/05/24 07:20 Pulse 78 08/05/24 07:20 Resp 16 08/05/24 07:20 BP 117/60 08/05/24 07:20 Pulse Ox 96 08/05/24 07:20 O2 Del Method Room Air 08/05/24 07:20 O2 Flow Rate 1 07/24/24 23:00 FiO2 80 07/18/24 15:17 Oxygen Flow Rate 1 07/09/24 13:21 BMI result Body Mass Index 26.5 Appearing in no acute distress lung sounds are clear to auscultation heart regular rate rhythm, clear S1, S2 positive bowel sounds, abdomen is soft, nontender neuro patient is alert x3, no focal deficits Objective Data Active Medications Clozapine (Clozapine 25 Mg Tablet) 75 mg PO BEDTIME [facility] Last Admin: 08/04/24 20:21 Dose: 75 mg Documented By: BRANDON Divalproex Sodium (Divalproex Sodium 250 Mg Tablet.) 250 mg PO BID [facility] Last Admin: 08/05/24 07:53 Dose: 250 mg Documented By: MACRINA Enoxaparin Sodium (Enoxaparin Sodium 40 Mg/0.4 Ml Syringe) 40 mg SUBCUT Q24H [facility] Last Admin: 08/04/24 14:14 Dose: 40 mg Documented By: MANA Lorazepam (Lorazepam 1 Mg Tablet) 1 mg PO TID [facility] Last Admin: 08/05/24 07:53 Dose: 1 mg Documented By: MACRINA Melatonin (Melatonin 3 Mg Tablet) 6 mg PO BEDTIME [facility] Last Admin: 08/04/24 20:21 Dose: 6 mg Documented By: BRANDON Memantine (Memantine Hcl 5 Mg Tablet) 5 mg PO BID [facility] Last Admin: 08/05/24 07:53 Dose: 5 mg Documented By: MACRINA Olanzapine (Olanzapine Odt 10 Mg Tab.Rapdis) 5 mg TRANSLINGU BID PRN PRN Reason: aggitation Last Admin: 08/03/24 19:36 Dose: 5 mg Documented By: SASHA Sodium Chloride (0.9 % Sodium Chloride Flush 3 Ml Syringe) 3 ml IVFLUSH QSHIFT [facility] Last Admin: 08/05/24 07:53 Dose: 3 ml Documented By: MACRINA Tamsulosin HCl (Tamsulosin Hcl 0.4 Mg Capsule) 0.8 mg PO BEDTIME [facility] Last Admin: 08/04/24 20:21 Dose: 0.8 mg Documented By: BRANDON Labs 08/02/24 09:18 08/02/24 09:18 Labs: Laboratory Results - last 24 hr 08/04/24 08:10 Absolute Neuts (auto) 4.0 Assessment and Plan (1) Schizoaffective disorder: Status: Acute (2) Catatonia: Status: Acute Plan 59-year-old male with history schizoaffective disorder who was initially admitted to inpatient psychiatric floor June 21 due to worsening catatonia. He received scheduled ECT following which time his oxygen saturations dropped, concern for aspiration and he was admitted to the ICU 07/09 where he started on tube feeds after failing swallow evaluation, received multiple doses of ketamine and had mental state alternating between catatonia and significant agitation requiring ketamine drip. He was intubated 07/17 due to respiratory distress in the setting of likely aspiration. Extubated 07/18. Downgraded to medical floor on 07/22 and sent back to ICU 07/23 for further planned ketamine infusions. He was downgraded back to the medical floor again on 07/27 as no further ketamine infusions plan at this time. Depression with decompensated schizophrenia, catatonia and agitation Status post multiple incisions of ketamine, last on 08/01 Continue Clozaril overall doing much better, awake, communicating, eating, plan to tx back to psychiatric floor for further management of catatonia likely on Monday - however having episodes of agitation at night scheduled po ativan and prn zyprexa ordered per recommendation of psychiatric team Psychiatric team following Urinary retention flomax increased to 0.8mg Dove placed Urology consultation pending Aspiration PNA requiring ICU and intubation s/p ampicillin now on room air Dysphagia Tolerating pureed diet Aspiration precautions DTI sacrum Seen by wound care nurse Off Load Pressure with Q2 hr turns and use of pillows>Apply skin prep to wound bed and periwound. Apply with foam dressing to aid in off loading and protection from friction. Change every 3 days and PRN. DVT prophylaxis-Lovenox Full code Quality Stroke Does the patient have a stroke diagnosis?: No VTE Prior VTE?: No VTE Risk Level:: Medical - low VTE Device Contraindication: N/A - Device Ordered VTE Drug Contraindication: N/A - Med Ordered
--- NOTE | 2024-08-05 09:48 | MHC.CLN ---
F/U PO INTAKE USUALLY 25%. DIET=GROUND. RECEIVING MAGIC CUP TID AND ENSURE BID TO INCREASE KCALS AND PROMOTE SKIN INTEGRITY. SKIN WITH DTI TO SACRUM. MAGIC CUP PROVIDES 870 KCALS, 27G PROTEIN. ENSURE BID PROVIDES 700KCALS, 40G PROTEIN. CONTINUE TO MONITOR PO INTAKE AND ENCOURAGE SUPPLEMENTS.
[2024-08-05 12:00] VITALS: BP 104/64; PULSE 72; RESP 14; TEMP 35.9; O2SAT 98
--- NOTE | 2024-08-05 12:27 | P.CNUR_ITS ---
History of Present Illness Consult details Consult date: 08/04/24 Narrative: CC: Urinary Retention 59-year-old male Initial admission to hospital through inpatient psychiatric June 21 for worsening catatonia. ICU admission after question of aspiration Initial management with ketamine drip Has been on medical floor for stabilization Found to have urinary retention Dove catheter placed Residual 600 cc Had been on alpha blockers Recommend addition finasteride Catheter to stay 2 weeks Would switch from overnight drainage bag to catheter cap to be used during the day to encourage mobilization Watch for constipation Review of Systems 2 Constitutional: Constitutional: Reports as per HPI and Reports no additional constitutional complaints Cardiovascular: Cardiovascular: Reports as per HPI and Reports no additional cardiovascular complaints Respiratory: Respiratory: Reports as per HPI and Reports no additional respiratory complaints Gastrointestinal: Gastrointestinal: Reports as per HPI and Reports no additional gastrointestinal complaints Genitourinary: Genitourinary: Reports as per HPI Musculoskeletal: Musculoskeletal: Reports no additional musculoskeletal complaints and Reports as per HPI Neurologic: Reports system reviewed and no additional complaints, except as documented and Reports as per HPI PMF Past Medical History Medical History Hospital discharge follow-up Mild sleep apnea Tardive dyskinesia Nocturnal hypoxia Routine medical exam Joint inflammation of right hand and wrist Status post fall Adult general medical exam Screening for colon cancer Screening for prostate cancer Cough BPH (benign prostatic hyperplasia) Family History Family History Mother Cancer Father Kidney agenesis Surgical History Surgical History History of colonoscopy (~06/15/21) History of tooth extraction History of root canal procedure Social History Social History Household Members: Unknown / Unable to assess Housing: Apartment Are you a primary residential child care counselor to a significant other at home: No Do you presently have visiting nurse or other home services: Yes Unable to assess alcohol history related to: Unable to respond Alcohol intake: former Comment: 1 to 1 sitter present Patient Tobacco Use Status: Never used Tobacco e-Cigarette/Vaping Use: Never Used Second Hand Smoke Exposure: No Use of substances other than those prescribed or required for medical reasons: Unable to respond Currently Displaying Signs/Symptoms of Drug Intoxication Withdrawal: No Advance Directives: No Advance Directives Information Provided: No Recently lost weight without trying: Unsure service: No Current occupational status: employed Sexual orientation: Straight/Heterosexual Cognitive needs: No Hearing needs: No Vision needs: No Meds Allergies Allergy/AdvReac Type Severity Reaction Status Date / Time No Known Allergies [NKA] Allergy Unknown NONE Verified 06/19/24 20:43 Active Medications: Current Medications Clozapine (Clozapine 25 Mg Tablet) 75 mg PO BEDTIME [facility] Last Admin: 08/04/24 20:21 Dose: 75 mg Divalproex Sodium (Divalproex Sodium 250 Mg Tablet.Dr) 250 mg PO BID [facility] Last Admin: 08/05/24 07:53 Dose: 250 mg Enoxaparin Sodium (Enoxaparin Sodium 40 Mg/0.4 Ml Syringe) 40 mg SUBCUT Q24H [facility] Last Admin: 08/04/24 14:14 Dose: 40 mg Lorazepam (Lorazepam 1 Mg Tablet) 1 mg PO TID [facility] Last Admin: 08/05/24 07:53 Dose: 1 mg Melatonin (Melatonin 3 Mg Tablet) 6 mg PO BEDTIME [facility] Last Admin: 08/04/24 20:21 Dose: 6 mg Memantine (Memantine Hcl 5 Mg Tablet) 5 mg PO BID [facility] Last Admin: 08/05/24 07:53 Dose: 5 mg Olanzapine (Olanzapine Odt 10 Mg Tab.Rapdis) 5 mg TRANSLINGU BID PRN PRN Reason: aggitation Last Admin: 08/03/24 19:36 Dose: 5 mg Sodium Chloride (0.9 % Sodium Chloride Flush 3 Ml Syringe) 3 ml IVFLUSH QSHIFT [facility] Last Admin: 08/05/24 07:53 Dose: 3 ml Tamsulosin HCl (Tamsulosin Hcl 0.4 Mg Capsule) 0.8 mg PO BEDTIME [facility] Last Admin: 08/04/24 20:21 Dose: 0.8 mg Physical Exam 2 Vital Signs: Vital Signs: Last Vital Signs Temp 96.7 F L 08/05/24 12:00 Pulse 72 08/05/24 12:00 Resp 14 08/05/24 12:00 BP 104/64 08/05/24 12:00 Pulse Ox 98 08/05/24 12:00 O2 Del Method Room Air 08/05/24 12:00 O2 Flow Rate 1 07/24/24 23:00 FiO2 80 07/18/24 15:17 Oxygen Flow Rate 1 07/09/24 13:21 BMI result Body Mass Index 26.5 Const: General: cooperative, healthy appearing, comfortable and no acute distress Orientation/consciousness: patient oriented x3 HEENT: Face and sinus: Yes normal facial exam Mouth: moist mucous membranes Neck: Neck: Yes normal visual inspection, Yes full ROM and Yes trachea midline Chest: Chest palpation & inspection: normal inspection of the chest Resp: Effort & Inspection: normal respiratory effort, able to speak in complete sentences and no respiratory distress GI: Inspection: Yes normal to inspection Back/Spine/Pelvis: Cervical Spine: normal cervical lordosis Thoracic/Lumbar Spine: thoracic and lumbar spine normal to inspection Skin: General skin exam: no rashes or lesions noted Neuro: General: patient oriented x3, tone normal and moves all extremities Extrem: General: Yes normal to inspection and Yes capillary refill normal Results Labs 08/02/24 09:18 08/02/24 09:18 Labs: All other labs normal. Assessment and Plan (1) Benign prostate hyperplasia: Qualifiers: Lower urinary tract symptom presence: unspecified whether lower urinary tract symptoms present Qualified Code(s): N40.0 - Benign prostatic hyperplasia without lower urinary tract symptoms Status: Acute (2) Urinary retention with incomplete bladder emptying: Status: Acute Plan Alpha-lino +finasteride Two week catheter to remain Catheter cap with overnight bag Voiding trial can be performed at whichever facility he is discharge to. Procedures Date of Service Date of Service: 08/05/24
--- NOTE | 2024-08-05 12:28 | PC.NURSE ---
Addendum entered by Francisca Barnes RN 08/05/24 12:29: risks of DVT explained Original Note: patient refuses sequentials,encouraged activity,
[2024-08-05] MEDS: Enoxaparin Sodium 40 MG/0.4 ML SYRINGE SUBCUT (14:18)
--- NOTE | 2024-08-05 14:26 | MHC.CM.PN ---
pe rounds pt will be returning to [facility] when bed avalaible
--- NOTE | 2024-08-05 14:27 | MHC.CM.PN ---
per rounds pt may be having surgery dc plan home n/s
--- NOTE | 2024-08-05 14:28 | MHC.CM.PN ---
per rounds pt will be ready for dc in 1 to 2 days
--- NOTE | 2024-08-05 14:47 | MHC.SL.SWA ---
Speech Pathologist Impression: Mild to moderate dysphagia persists in setting of weakness, decreased self-awareness, deconditioning Risk of Aspiration Due to: Medically Fragile Neurological Condition History of Pneumonia Poor PO Intake Weak Cough Weak Voice Dysphasia Diet Status: Recommend no change at this time, continue on Ground Mechanical diet with Thin liquids, pills whole or crushed in puree. Diet should be continued at transition to first floor/Geripscyh. Liquid Consistency and Strategies for Safe Swallow: Liquid Intake Recommendation: Thin Liquid Intake Strategies: Small Sips Solid Food Consistency: Dietary Recommendations: Grnd/Mech Altered (NDD2) Additional Modifications to Solid Foods: Oral Medication Intake: Whole with Puree Please contact the pharmacy regarding appropriate crushable or liquid drug formulations that are available whenever modified delivery is recommended. Compensatory Strategies and Precautions to be Taken for Safe Swallow: Sitting Upright (90 deg) Liquids from Cup Liquids from Straw Small Bites and Sips Alternate Liquids/Solids Supervision While Eating and Drinking for Safe Swallow: Total Assistance (1:1) Foods to Avoid: Mixed consistencies Swallowing Recommended Treatments: Compens. Strategy Educat. Recommendation for Speech: Inpatient Speech Therapy Comment: Pt seen for dysphagia, tolerating diet as ordered, self-feeding with intermittent difficulty in obtaining material with utensil, but much improved self-awareness and ability to eat. Pt needs assistance/supervision for safety. Pt independently alternates consistencies, tolerating thins by straw or cup sips consecutively. Mild gulping evident when pt rate of intake increases. Pt followed simple cues during dysphagia treatment, agreeing with suggestions to slow down while eating; though he is not able to carry this over without cues. VIDEOGAME DESIGNER notified MD of progress, lead radiologic technologist continue to provide assist to pt with all PO. VIDEOGAME DESIGNER following. Frequency/Duration: M-F daily Date Range for Service Req: Timeline to reassess: Meal Cook Clinican/Clinical Fellow: No Supervisory Statement: I have reviewed and agree with the student/clinical fellow's documentation: N/A Speech Language Pathologist: [facility] Pink M.S., [facility]-VIDEOGAME DESIGNER
[2024-08-05 15:58] VITALS: BP 155/71; PULSE 98; RESP 12; TEMP 36.6; O2SAT 97
[2024-08-05 19:32] VITALS: BP 101/55; PULSE 84; RESP 20; TEMP 36.4; O2SAT 97
[2024-08-05] MEDS: cloZAPine 25 MG TABLET 75 MG PO (20:20)
[2024-08-05] MEDS: Melatonin 3 MG TABLET 6 MG PO (20:20)
[2024-08-05] MEDS: Tamsulosin HCL 0.4 MG CAPSULE 0.8 MG PO (20:20)
[2024-08-05 23:32] VITALS: BP 127/62; PULSE 67; RESP 18; TEMP 36.2; O2SAT 98
[2024-08-06] VITALS (17 sets, daily range): BP systolic 97–149; BP diastolic 55–73; PULSE 73–97; RESP 14–20; TEMP 36.1–36.7; O2SAT 95–99
--- NOTE | 2024-08-06 07:17 | P.PNIM_ITS ---
Subjective Subjective Date of Service: 08/06/24 Interval History: seen and examined this morning follow up for catatonia/agitation awake, alert, slow to respond but calm and cooperative during the day Review of Systems Review of Systems: Yes all other systems are reviewed and are negative Physical Exam 2 Vital Signs: Vital Signs: Last Vital Signs Temp 97 F 08/06/24 02:17 Pulse 81 08/06/24 02:17 Resp 20 08/06/24 02:17 BP 149/66 H 08/06/24 02:17 Pulse Ox 99 08/06/24 02:17 O2 Del Method Room Air 08/06/24 02:17 O2 Flow Rate 1 07/24/24 23:00 FiO2 80 07/18/24 15:17 Oxygen Flow Rate 1 07/09/24 13:21 BMI result Body Mass Index 26.5 Appearing in no acute distress lung sounds are clear to auscultation heart regular rate rhythm, clear S1, S2 positive bowel sounds, abdomen is soft, nontender neuro patient is alert, slow to respond Objective Data Active Medications Clozapine (Clozapine 25 Mg Tablet) 75 mg PO BEDTIME [facility] Last Admin: 08/05/24 20:20 Dose: 75 mg Documented By: BRANDON Divalproex Sodium (Divalproex Sodium 250 Mg Tablet.Dr) 250 mg PO BID [facility] Last Admin: 08/05/24 20:20 Dose: 250 mg Documented By: BRANDON Enoxaparin Sodium (Enoxaparin Sodium 40 Mg/0.4 Ml Syringe) 40 mg SUBCUT Q24H [facility] Last Admin: 08/05/24 14:18 Dose: 40 mg Documented By: MACRINA Finasteride (Finasteride 5 Mg Tablet) 5 mg PO DAILY [facility] Lorazepam (Lorazepam 1 Mg Tablet) 1 mg PO TID [facility] Last Admin: 08/05/24 20:21 Dose: 1 mg Documented By: BRANDON Melatonin (Melatonin 3 Mg Tablet) 6 mg PO BEDTIME [facility] Last Admin: 08/05/24 20:20 Dose: 6 mg Documented By: BRANDON Memantine (Memantine Hcl 5 Mg Tablet) 5 mg PO BID [facility] Last Admin: 08/05/24 20:20 Dose: 5 mg Documented By: BRANDON Olanzapine (Olanzapine Odt 10 Mg Tab.Rapdis) 5 mg TRANSLINGU BID PRN PRN Reason: aggitation Last Admin: 08/03/24 19:36 Dose: 5 mg Documented By: SASHA Sodium Chloride (0.9 % Sodium Chloride Flush 3 Ml Syringe) 3 ml IVFLUSH QSHIFT [facility] Last Admin: 08/05/24 20:23 Dose: 3 ml Documented By: BRANDON Tamsulosin HCl (Tamsulosin Hcl 0.4 Mg Capsule) 0.8 mg PO BEDTIME [facility] Last Admin: 08/05/24 20:20 Dose: 0.8 mg Documented By: BRANDON Labs 08/02/24 09:18 08/02/24 09:18 Assessment and Plan (1) Schizoaffective disorder: Status: Acute (2) Catatonia: Status: Acute Plan 59-year-old male with history schizoaffective disorder who was initially admitted to inpatient psychiatric floor June 21 due to worsening catatonia. He received scheduled ECT following which time his oxygen saturations dropped, concern for aspiration and he was admitted to the ICU 07/09 where he started on tube feeds after failing swallow evaluation, received multiple doses of ketamine and had mental state alternating between catatonia and significant agitation requiring ketamine drip. He was intubated 07/17 due to respiratory distress in the setting of likely aspiration. Extubated 07/18. Downgraded to medical floor on 07/22 and sent back to ICU 07/23 for further planned ketamine infusions. He was downgraded back to the medical floor again on 07/27 as no further ketamine infusions plan at this time. Depression with decompensated schizophrenia, catatonia and agitation Biweekly Ketamine treatments as per psychiatry Continue Clozaril overall doing much better, awake, communicating, eating, plan to tx back to psychiatric floor for further management of catatonia scheduled po ativan and prn zyprexa ordered per recommendation of psychiatric team Psychiatric team following Seen by PT/OT Urinary retention flomax increased to 0.8mg Dove placed Urology consultation>Keep F/C for 2 weeks Aspiration PNA s/p ICU and intubation s/p ampicillin now on room air Dysphagia Tolerating pureed diet Aspiration precautions DTI sacrum Seen by wound care nurse Off Load Pressure with Q2 hr turns and use of pillows>Apply skin prep to wound bed and periwound. Apply with foam dressing to aid in off loading and protection from friction. Change every 3 days and PRN. DVT prophylaxis-Lovenox Full code Quality Stroke Does the patient have a stroke diagnosis?: No VTE Prior VTE?: No VTE Risk Level:: Medical - low VTE Device Contraindication: N/A - Device Ordered VTE Drug Contraindication: N/A - Med Ordered
[2024-08-06] MEDS: Memantine HCl 5 MG TABLET PO ×2 (07:41→20:26)
[2024-08-06] MEDS: Divalproex Sodium 250 MG TABLET.DR PO ×2 (07:41→20:26)
[2024-08-06] MEDS: LORazepam 1 MG TABLET PO ×2 (07:41→20:26)
[2024-08-06] MEDS: Finasteride 5 MG TABLET PO (07:41)
[2024-08-06] MEDS: 0.9 % Sodium Chloride Flush 3 ML SYRINGE IVFLUSH ×2 (07:42→20:33)
[2024-08-06] MEDS: Ketamine HCl 500 MG in 0.9 % Sodium Chloride 250 ML 21.42 MG IV (07:59)
--- NOTE | 2024-08-06 10:36 | PC.NURSE ---
Patient returned from PACU after ketamine infusion,alert and oriented X2 ,vs stable ,resting quietly in bed
--- NOTE | 2024-08-06 14:44 | MHC.SL.SWA ---
Risk of Aspiration Due to: Medically Fragile Neurological Condition History of Pneumonia Poor PO Intake Weak Cough Weak Voice Dysphasia Diet Status: NO CHANGE Liquid Consistency and Strategies for Safe Swallow: Liquid Intake Recommendation: Thin Liquid Intake Strategies: Small Sips Solid Food Consistency: Dietary Recommendations: Grnd/Mech Altered (NDD2) Additional Modifications to Solid Foods:moisten with sauce/gravy Oral Medication Intake: Whole with Puree Please contact the pharmacy regarding appropriate crushable or liquid drug formulations that are available whenever modified delivery is recommended. Compensatory Strategies and Precautions to be Taken for Safe Swallow: Sitting Upright (90 deg) Small Bites and Sips Alternate Liquids/Solids Supervision While Eating and Drinking for Safe Swallow: Total Assistance (1:1) Foods to Avoid: Mixed consistencies Swallowing Recommended Treatments: Compens. Strategy Educat. Recommendation for Speech: Inpatient Speech Therapy Continue on Ground Mechanical diet with Thin liquids, pills whole or crushed in puree. Patient requires FULL SUPERVISION to provide cueing for safe eating such as small bites and sips, take 1-2 bites then sip of liquid, clear oral cavity before introducing additional PO. Diet should be continued at transition to first floor/Geripscyh. Frequency/Duration: M-F daily Diesel Automotive Technician Clinican/Clinical Fellow: No Supervisory Statement: I have reviewed and agree with the student/clinical fellow's documentation: N/A Speech Language Pathologist: Lilliana Montenegro M.A., CCC-JEWEL INSERTER
[2024-08-06] MEDS: cloZAPine 25 MG TABLET 75 MG PO (20:26)
[2024-08-06] MEDS: Tamsulosin HCL 0.4 MG CAPSULE 0.8 MG PO (20:26)
[2024-08-06] MEDS: Melatonin 3 MG TABLET 6 MG PO (20:26)
[2024-08-07 03:42] VITALS: BP 124/82; PULSE 79; RESP 18; TEMP 36.5; O2SAT 98
[2024-08-07 07:37] VITALS: BP 115/56; PULSE 74; RESP 16; TEMP 36.1; O2SAT 97
[2024-08-07] MEDS: LORazepam 1 MG TABLET PO (08:16)
[2024-08-07] MEDS: Divalproex Sodium 250 MG TABLET.DR PO (08:16)
[2024-08-07] MEDS: Memantine HCl 5 MG TABLET PO (08:16)
[2024-08-07] MEDS: Finasteride 5 MG TABLET PO (08:16)
[2024-08-07] MEDS: 0.9 % Sodium Chloride Flush 3 ML SYRINGE IVFLUSH (08:17)
--- NOTE | 2024-08-07 08:54 | MHC.CLN ---
F/U PO INTAKE VARIABLE, 0-100%. DIET=GROUND. CONTINUE TO PROVIDE SUPPLEMENTS TO PROMOTE SKIN INTEGRITY. SKIN WITH DTI TO SACRUM. MAGIC CUP PROVIDES 870 KCALS, 27G PROTEIN. ENSURE BID PROVIDES 700KCALS, 40G PROTEIN. CONTINUE TO MONITOR PO INTAKE AND ENCOURAGE SUPPLEMENTS.
--- NOTE | 2024-08-07 09:52 | MHC.SL.SWA ---
Speech Pathologist Impression: Mild oropharyngeal dysphagia d/t deconditioning, reduced self-awareness, need for cues to slow pace, modified diet and 1:1 supervision/assist during PO Risk of Aspiration Due to: Medically Fragile Neurological Condition History of Pneumonia Dysphasia Diet Status: Continue on Ground Mechanical diet with Thin liquids, pills whole or crushed in puree. Patient requires FULL SUPERVISION to provide cueing for safe eating such as small bites and sips, take 1-2 bites then sip of liquid, clear oral cavity before introducing additional PO. Diet should be continued at transition to first floor/Geripscyh. Liquid Consistency and Strategies for Safe Swallow: Liquid Intake Recommendation: Thin Liquid Intake Strategies: Small Sips Solid Food Consistency: Dietary Recommendations: Grnd/Mech Altered (NDD2) Additional Modifications to Solid Foods: Oral Medication Intake: Whole with Puree Please contact the pharmacy regarding appropriate crushable or liquid drug formulations that are available whenever modified delivery is recommended. Compensatory Strategies and Precautions to be Taken for Safe Swallow: Sitting Upright (90 deg) Liquids from Cup Liquids from Straw Small Bites and Sips Alternate Liquids/Solids Supervision While Eating and Drinking for Safe Swallow: Total Assistance (1:1) Foods to Avoid: Mixed consistencies Swallowing Recommended Treatments: Compens. Strategy Educat. Recommendation for Speech: Inpatient Speech Therapy Comment:Pt seen for dysphagia treatment. Pt more alert and able to reposition himself in bed, HOB elevated to 80 degrees. STAFF REPORTER set up tray and assisted with opening containers, arranging utensils within pt reach. Pt continues to experience moderate UE weakness but does well with holding utensil and using hand to scoop food onto fork. Pt used spoon to scoop eggs onto fork this day when offered. Pt intermittently takes large bites of food; bolus formation and manipulation mildly impaired d/t decreased self-awareness. Pt followed a few simple cues to slow pace but exhibited some resistance to assist. STAFF REPORTER sat to pt R side, out of his visual field. Pt looked toward STAFF REPORTER in one instance during meal, STAFF REPORTER reminded pt that we continue to see how he is doing when eating, encouraging pt to maintain steady, slow pace. Cough occurred x3 across length of meal, secondary to pt increased pacing. Pt benefitted from simple reminders to 'take a break' when coughing. Pt was agreeable, expressing his needs by asking for specific items and stating when he was done. Pt more communicative now, responding without latency to MANAGER BAKERY who came in to greet him. RN and window unit air conditioning mechanic consulted, recc diet as ordered (NDD2 with thins), aspiration precautions, 1:1 supervision/assist, cueing pt to slow pace. STAFF REPORTER following. Frequency/Duration: M-F daily Date Range for Service Req: Timeline to reassess: Electric Motor Repairer Clinican/Clinical Fellow: No Supervisory Statement: I have reviewed and agree with the student/clinical fellow's documentation: N/A Speech Language Pathologist: Francia Pink M.S., CCC-STAFF REPORTER
[2024-08-07 11:46] VITALS: BP 117/56; PULSE 83; RESP 18; TEMP 36.5; O2SAT 95
--- NOTE | 2024-08-07 12:50 | PM.DS ---
DS: Providers Provider Date of Service: 08/07/24 Date of admission: 07/09/24 14:18 Date of discharge: 08/07/24 Primary care physician: Jonn Smith MD Consults: 07/10/24 17:50 Consult to Anesthesiology Routine Consulting Provider: Clarita Barnes Reason for consultation: pre ect Has provider been notified: No 07/16/24 16:30 Consult to Psychiatry Routine Consulting Provider: Steven Huerta Reason for consultation: catatonia Has provider been notified: Yes 07/21/24 06:51 Consult to Wound Care Routine Reason for consultation: ? evolution PI 08/04/24 07:35 Consult to Urology Routine Consulting Provider: [facility] Reason for consultation: urinary retention DS: Transfer Hospital Acceptance Reason for Transfer: Pt being transferred to [facility] for continued psychiatric care for ongoing catatonia. DS: Diagnosis Discharge Diagnosis (1) Schizoaffective disorder: Status: Acute (2) Catatonia: Status: Acute DS: Summary Hospital Course Hospital Course: From admission HPI: 59-year-old male, single, with no children, with a past history of schizoaffective disorder, living alone with several ancillary services in the community, his father is Healthcare proxy he was admitted to the psych unit on 06/21/2024 due to worsening peritoneal. He received his scheduled ECT following which is saturations dropped, there was some concerns for pneumonitis for which he received steroids following which his mentation further continued to worsen. Currently he is very a catatonic, not following commands, moving around in the bed so MICU was consulted for admission. Pt was initially treated in the ICU on ketamine drip due to agitation and catatonia. Pt was intubated on 07/17 and then extubated on 07/18. Hospital stay complicated by continued episodes of catatonia and agitation requiring ketamine drip infusion on 07/19 and again on 07/23. Original recommendation was for TPN, however pt had NGT placed and nourished with tube feeds. Seen and evaluated by speech and swallow and eventually transitioned to pureed diet and then to ground/mech altered (NDD2) diet, thin liquids, Ensure TID, and Fortified Ice Cream TID which he is currently tolerating. Has been followed by psych with multiple medication changes. Patient's vital signs have been stable and largely WNL. No repeat episodes of hypoxia and pt not requiring supplemental O2. Pt will be transferred back to [facility] and is scheduled to undergo ketamine infusions on Tuesdays and in the PACU. Time Attestation Discharge Coordination Time (in mins): 35 Quality: Safe Use of Opioids Does Pt have an Active Cancer Diagnosis on the Problem List?: No Quality: Stroke Does the patient have a stroke diagnosis?: No Physical Exam Vital Signs: Vital Signs: Last Vital Signs Temp 97.7 F 08/07/24 11:46 Pulse 83 08/07/24 11:46 Resp 18 08/07/24 11:46 BP 117/56 L 08/07/24 11:46 Pulse Ox 95 08/07/24 11:46 O2 Del Method Room Air 08/07/24 11:46 O2 Flow Rate 1 07/24/24 23:00 FiO2 80 07/18/24 15:17 Oxygen Flow Rate 1 07/09/24 13:21 BMI result Body Mass Index 26.5 General: Awake and alert, in no acute distress Resp: CTA bilaterally CVS: S1, S2, RRR GI: +BS, NT, no distention Skin: Warm, dry Neuro: Cranial nerves II-XII grossly intact bilaterally. Motor grossly intact bilaterally. Slow to respond but responding to queries appropriately Extremities: No edema Psych: Slow to respond, but answering most questions, calm and cooperative DS: Data Data Completed and Pending Completed studies during hospitalization [Text1]: Procedures Insertion of Infusion Device into Left Cephalic Vein, Percutaneous Approach (06/20/24) Other Electroconvulsive Therapy (06/20/24) Discharge Plan Discharge Anticipated Discharge Date/Time: 08/07/24 12:04 Patient Disposition: Xfer Psychiatric Hosp Referrals: Jonn Smith MD [Primary Care Provider] - 1 Week Discharge Medications: New tamsulosin 0.4 mg Capsule 0.8 mg PO BEDTIME Qty: 1 0RF divalproex 250 mg Tablet,Delayed Release (Dr/Ec) 250 mg PO BID Qty: 1 0RF olanzapine 10 mg Tablet,Disintegrating 5 mg translingual BID PRN (Reason: aggitation) Qty: 1 0RF clozapine 25 mg Tablet 75 mg PO BEDTIME Qty: 1 0RF lorazepam 1 mg Tablet 1 mg PO TID Qty: 1 0RF memantine 5 mg Tablet 5 mg PO BID Qty: 1 0RF melatonin 3 mg Tablet 6 mg PO BEDTIME Qty: 1 0RF finasteride 5 mg Tablet 5 mg PO DAILY Qty: 1 0RF enoxaparin 40 mg/0.4 mL Syringe 40 mg subcut Q24H Qty: 4 0RF Discontinued clozapine 100 mg Tablet 200 mg PO BEDTIME 30 Days Qty: 60 0RF tamsulosin 0.4 mg Capsule 0.4 mg PO BEDTIME 30 Days Qty: 30 0RF lorazepam 1 mg Tablet 1 mg PO TID 30 Days Qty: 90 0RF Discharge Orders: Discharge Order (Routine); Ordered 08/07/24 Ordered By: Peace Boateng Activity on Discharge: As tolerated Stand Alone Forms: Patient Portal Discharge page Print Language: Thai Discharge Date/Time: 08/07/24 14:13
--- NOTE | 2024-08-07 12:56 | MHC.CM.PN ---
PT TRANSFERRED TO [facility] [place]
--- NOTE | 2024-08-07 13:45 | HO.WOUND ---
/Wound Consult: Follow up 59yr old?male admitted to [facility] on 07/09/24 - See progress notes and H&P for detailed history.? Wound consult follow up for Sacrum.? Patient agreeable to assessment and photo documentation.? Sacrum 07/23/24 Sacrum 08/07/24 - Resolved DTI - minimal tissue damage remains - resurfacing, Fungal dermatitis noted patient reports itching. Provider contacted to order antifungal cream / ointment - twice daily. Etiology: ?Deep Tissue Injury ?Present on Admission - resolved - tissue is blanchable - MASD with fungal derm and satellite lesions noted. Goals of Treatment: ? Off load pressure - antifungal cream or ointment for treatment Recommendations: 1. Turn and Reposition every 2 hours and as needed for patient comfort.? Use pillows or wedges to support off loading positions. 2. Off Load all bony prominences with use of pillows and heel boots if needed.? Apply Preventative foams where needed. ? 3. Monitor for incontinence and moisture control, use barrier creams when needed for prevention and treatment. 4. Provide adequate and supplemental nutrition.? 5. Order low air loss mattress. 6. When applicable maintain blood glucose levels per Providers order. Intergluteal - Routine cleansing - apply antifungal cream / ointment twice daily to affected area. Re-consult wound care Nurse for wound deterioration or wound changes.
== END 2024-08-07 14:13 | DRG 208 ==
LOC: HO.ICU 07-22 12:47 → HO.IMC 07-22 15:10 → HO.ICU 07-23 13:42 → HO.IMC 07-27 15:47 → HO.S3 08-02 12:08
PROVIDERS: Internal Medicine Pulmonary Disease; Nurse Practitioner Acute Care; Physician Assistant Medical; Psychiatry & Neurology Psychiatry; Registered Nurse Community Health; Admitting Provider Internal Medicine Critical Care Medicine; PCP Internal Medicine; Visit Provider Student in an Organized Health Care Education/Training Program
DX: J69.0 Pneumonitis due to inhalation of food and vomit (principal); J96.01 Acute respiratory failure with hypoxia; G93.49 Other encephalopathy; N40.1 Benign prostatic hyperplasia with lower urinary tract symptoms; R33.8 Other retention of urine; R13.10 Dysphagia, unspecified; F25.9 Schizoaffective disorder, unspecified; F32.A Depression, unspecified; F06.1 Catatonic disorder due to known physiological condition; I10 Essential (primary) hypertension; L89.156 Pressure-induced deep tissue damage of sacral region; Z79.899 Other long term (current) drug therapy
CPT/HCPCS: 36415; 70551; 71045; 80048; 80053; 82040; 82803; 82947; 83735; 84100; 85025; 85027; 85048; 85652; 86038; 86039; 86140; 86431; 86617; 86618; 92526; 92610; 94002; 94003; 94640; 94799; 97112; 97116; 97163; 97167; 97530; 97535; J0295; J1308; J1650; J1920; J2060; J2250; J2359; J2470; J2704; J7120; S9485

== ENCOUNTER 2024-07-09 14:18 | Outpatient (BNV) | payer MEDICARE, MEDICAID, SELFPAY | END 2024-07-24 07:49 | PROVIDERS: Admitting Provider Internal Medicine Critical Care Medicine; PCP Internal Medicine; Visit Provider Radiology Diagnostic Radiology | DX: Z46.6 Encounter for fitting and adjustment of urinary device (principal) | CPT/HCPCS: 71045 ==

== ENCOUNTER 2024-07-09 14:18 | Outpatient (BNV) | payer MEDICARE, MEDICAID, SELFPAY | END 2024-07-26 05:00 | PROVIDERS: Admitting Provider Internal Medicine Critical Care Medicine; PCP Internal Medicine; Visit Provider Radiology Vascular & Interventional Radiology | DX: Z46.6 Encounter for fitting and adjustment of urinary device (principal) | CPT/HCPCS: 71045 ==

== ENCOUNTER 2024-07-09 14:18 | Outpatient (BNV) | payer MEDICARE, MEDICAID, SELFPAY | END 2024-07-10 17:30 | PROVIDERS: Admitting Provider Internal Medicine Critical Care Medicine; Visit Provider Radiology Diagnostic Radiology | DX: Z93.4 Other artificial openings of gastrointestinal tract status (principal) | CPT/HCPCS: 71045 ==

== ENCOUNTER → 2024-07-09 14:18 | Outpatient (BNV) | payer MEDICARE, MEDICAID, SELFPAY | PROVIDERS: Admitting Provider Internal Medicine Critical Care Medicine; Visit Provider Internal Medicine Pulmonary Disease | DX: F25.9 Schizoaffective disorder, unspecified (principal) | CPT/HCPCS: 99232 ==

== ENCOUNTER → 2024-07-09 14:18 | Outpatient (BNV) | payer MEDICARE, MEDICAID, SELFPAY | PROVIDERS: Admitting Provider Internal Medicine Critical Care Medicine; PCP Internal Medicine; Visit Provider Clinical Nurse Specialist Psychiatric/Mental Health, Adult | DX: F25.9 Schizoaffective disorder, unspecified (principal); F06.1 Catatonic disorder due to known physiological condition | CPT/HCPCS: 99232 ==

== ENCOUNTER → 2024-07-09 14:18 | Outpatient (BNV) | payer MEDICARE, MEDICAID, SELFPAY | PROVIDERS: Admitting Provider Internal Medicine Critical Care Medicine; Visit Provider Internal Medicine Critical Care Medicine | DX: F25.1 Schizoaffective disorder, depressive type (principal); F06.1 Catatonic disorder due to known physiological condition; I10 Essential (primary) hypertension; N40.0 Benign prostatic hyperplasia without lower urinary tract symptoms | CPT/HCPCS: 99223; 99238; 99291 ==

== ENCOUNTER → 2024-07-09 14:18 | Outpatient (BNV) | payer MEDICARE, MEDICAID, SELFPAY | PROVIDERS: Admitting Provider Internal Medicine Critical Care Medicine; PCP Internal Medicine; Visit Provider Nurse Practitioner Acute Care | DX: F06.1 Catatonic disorder due to known physiological condition (principal); F25.9 Schizoaffective disorder, unspecified; T17.900A Unspecified foreign body in respiratory tract, part unspecified causing asphyxiation, initial encounter | CPT/HCPCS: 99232; 99499 ==

== ENCOUNTER → 2024-07-09 14:18 | Outpatient (BNV) | payer MEDICARE, MEDICAID, SELFPAY | PROVIDERS: Admitting Provider Internal Medicine Critical Care Medicine; PCP Internal Medicine; Visit Provider Urology | DX: N40.0 Benign prostatic hyperplasia without lower urinary tract symptoms (principal); R33.9 Retention of urine, unspecified | CPT/HCPCS: 99222 ==

== ENCOUNTER → 2024-07-09 14:18 | Outpatient (BNV) | payer MEDICARE, MEDICAID, SELFPAY | PROVIDERS: Admitting Provider Internal Medicine Critical Care Medicine; PCP Internal Medicine; Visit Provider Psychiatry & Neurology Psychiatry | DX: F25.9 Schizoaffective disorder, unspecified (principal); F06.1 Catatonic disorder due to known physiological condition; T17.900A Unspecified foreign body in respiratory tract, part unspecified causing asphyxiation, initial encounter; J96.01 Acute respiratory failure with hypoxia | CPT/HCPCS: 99232 ==

== ENCOUNTER 2024-08-07 14:39 | Outpatient (BNV) | payer MEDICARE, MEDICAID, SELFPAY | END 2024-09-09 14:33 | PROVIDERS: Admitting Provider Psychiatry & Neurology Psychiatry; Visit Provider Radiology Diagnostic Radiology | DX: I82.612 Acute embolism and thrombosis of superficial veins of left upper extremity (principal) | CPT/HCPCS: 93971 ==

== ENCOUNTER 2024-08-07 14:39 | Inpatient (IN) | payer MEDICARE, MEDICAID, SELFPAY ==
--- NOTE | ~2024-08-07 | US_ITS ---
EXAMINATION: US TRIPLEX UPPER EXTREMITY, LEFT CLINICAL INFORMATION: Edema, left upper extremity COMPARISON: None available. TECHNIQUE: Color-flow triplex imaging with spectral analysis and compression Doppler was performed on the left upper extremity. FINDINGS: Interrogated veins included left internal jugular vein, subclavian, axillary, brachial, basilic, cephalic pulmonary and radial veins demonstrated partial compressibility in the cephalic vein where the catheter is identified. The remaining interrogated veins demonstrated normal phasic flow and augmentation. US/US venous duplex UE LT IMPRESSION: Nonocclusive thrombus, left cephalic vein. Electronically signed by: Mayank Irwin MD 09/09/2024 03:31 PM EDT
--- NOTE | ~2024-08-07 | XR_ITS ---
CLINICAL HISTORY: Lekocytosis --- Additional Notes or Special Instructions: will call before bringing pt. to ED 1645 Two views of the chest. COMPARISON: XR chest dated 07/26/24 at 05:04 EDT FINDINGS: Normal heart and mediastinal contours. No consolidation. Stable calcified granuloma in the left lung base. No pleural effusion or pneumothorax. Small flowing marginal osteophytes throughout the thoracic spine. No fracture identified. IMPRESSION: 1. No consolidation. This document has been electronically signed by: Caleb Chow MD on 08/14/2024 17:14:45
--- NOTE | ~2024-08-07 | US_ITS ---
EXAMINATION: US TRIPLEX UPPER EXTREMITY, LEFT CLINICAL INFORMATION: Swelling, follow-up left cephalic vein thrombophlebitis. COMPARISON: 09/09/2024 TECHNIQUE: Color-flow triplex imaging with spectral analysis and compression Doppler was performed on the left upper extremity. FINDINGS: The left internal jugular, subclavian, and axillary veins are patent and free of thrombus. The imaged segment of the left brachiocephalic vein is patent. Spectral doppler waveforms are normal. The brachial, basilic, cephalic, radial, and ulnar veins are patent and compressible. Previously seen left cephalic vein thrombophlebitis has near completely resolved. US/US venous duplex UE LT IMPRESSION: 1. No evidence of deep venous thrombosis involving the left upper extremity. 2. Previously seen cephalic thrombophlebitis has near completely resolved Electronically signed by: Reinaldo Montes MD 10/04/2024 03:44 PM EDT
--- OUTSIDE RECORDS SUMMARY | 2024-08-07 14:42 | XMS_ITS | Patient Health Record ---
Author Organization [facility] Behzad [place] Address [address] [facility] [place] [address] Care Team Providers Care Distribution Center Supervisor Name Role Phone SarahJonn Primary Care Provider Deanna Baron Unavailable [phone] Main Nino Unavailable [phone] Allergies No Known Allergies Reason For Referral [...] as needed Orally Once a day Active Urbank Carbonate 600 MG 1 capsule at be [...] Polyneuropathy due to type 2 diabetes mellitus (176992584) Type 2 diabetes mellitus with diabetic polyneuropathy (E11.42) Active confirmed Vital Signs Blood pressure diastolic 80 mm Hg 12/26/2023 Height 5ft 10in in 12/26/2023 Blood pressure systolic 120 mm Hg 12/26/2023 Weight 227 lbs 12/26/2023 BMI 32.57 kg/m2 12/26/2023 Procedures Procedure Date Ordered Date Performed Result Body Sit e 93906-OYRJMLW NAIL, 6 OR MORE 12/26/2023 N/A Encounters Encounter Location Date Provider Diagnosis [facility] [address] 12/26/2023 Deanna Baron Tinea unguium B35.1 and Type 2 diabetes mellitus with diabetic polyneuropathy E11.[address] [facility] [address] 09/06/[address] [address] 03/28/2024 Deanna Baron Assessments Encounter Date Diagnosis (ICD Code) Assessment Notes Treatment Notes Treatment Clinical Notes Section Notes 12/26/2023 Tinea unguium (ICD-10 - B35.1) 12/26/2023 Type 2 diabetes mellitus with diabetic polyneuropathy (ICD-10 - E11.42) Plan Of Treatment Pending Test Test Name Order Date X ray : Foot, right 3V 10/17/2018 07879-ZASSUXY NAIL, 6 OR MORE 12/26/2023 24866-EHJX SKIN LESIONS, OVER 4 04/07/19 22 17736-OXJM SKIN LESIONS, OVER 4 01/31/20 19 03099-MJAN SKIN LESIONS, OVER 4 06/05/19 20 79820-AULT SKIN LESIONS, OVER 4 07/31/19 19 12904-REDJ SKIN LESIONS, OVER 4 10/18/19 19 17866-PSZI SKIN LESIONS, OVER 4 09/18/19 20 31019-XLRO SKIN LESIONS, OVER 4 12/16/19 20 62617-SDTM SKIN LESIONS, OVER 4 04/08/19 09421-TIHD SKIN LESIONS, OVER 4 08/06/19 24987-GYBX SKIN LESIONS, OVER 4 12/17/19 21 Q7693-KEWFIYGY DYSTROPHIC NAILS ANY # D2018-NYNVCSQK DYSTROPHIC NAILS ANY # A5058-EIMNUMFB DYSTROPHIC NAILS ANY # X1805-OHZYRMUA DYSTROPHIC NAILS ANY # Y0709-CYOCUOJR DYSTROPHIC NAILS ANY # V8616-DVGCBTHX DYSTROPHIC NAILS ANY # A9849-ZTWFGGBK DYSTROPHIC NAILS ANY # Insurance Providers Payer Name Payer Address Payer Phone Subscriber Number Group Number Insured Name Patient Relationship to Insured Coverage Start Date Coverage End Date [employer] Medicare Open [address] [place] [address] [id number] Benjamin Tenorio Self - patient is the insured Medical (General) History Medical History History ICD Code Depression type II diabetes Surgical History Surgery Date(Month/Year) colonoscopy 06/19/21 Hospitalization History Reason Date(Month/Year) HAV-Bfvijzvjsl-CY visit 12/2018
--- OUTSIDE RECORDS SUMMARY | 2024-08-07 14:42 | XMS_ITS ---
Author Organization [facility] Behzad jonah [place] Address [address] [place] [address] Care Team Providers Care Aquaculturist Name Role Phone Jonn Smith Primary Care Provider Deanna Baron Unavailable [phone] Allergies No Known Allergies REASON FOR VISIT [...] Active Flomax Active Abilify Active clonazePAM Active Strathmore Carbonate 600 MG 1 capsule at be [...] Ordered Date Performed Result Body Sit e 93524-WWZXLJA NAIL, 6 OR MORE 12/26/2023 N/A Encounters Encounter Location Date Provider Diagnosis [facility] [place] [address] [place] [address] 12/26/2023 Deanna Baron Tinea unguium B35.1 and Type 2 diabetes mellitus with diabetic polyneuropathy E11.42 Assessments Encounter Date Diagnosis (ICD Code) Assessment Notes Treatment Notes Treatment Clinical Notes Section Notes 12/26/2023 Tinea unguium (ICD-10 - B35.1) 12/26/2023 Type 2 diabetes mellitus with diabetic polyneuropathy (ICD-10 - E11.42) Plan Of Treatment Pending Test Test Name Order Date 95938-FFQBHAU NAIL, 6 OR MORE 12/26/2023 Next Appt [...] use of a nail nipper and/or dremel-type razor grinder, to a more viable healthy nail plate or bed tissue 6-10. Silver nitrate used for any petechial bleeding as necessary. Definitive antifungal treatment options have been reviewed and discussed with the patient. The patient chooses, no pharmaceutical tx - 97643 Progress Notes * Benjamin ALVAREZ PDOB:1965 (58 yo M)Acc No.[id number]:12/26/2023 Progress Note Patient:?Benjamin Alvarez Provider:?Deanna Baron DPM :1965???Age:58 Y???Sex:Male Wilver e:12/26/2023 Address:[address] [place] [address] [address], [facility] Pcp:Jonn Smith Subjective: * Chief Complaints: * [...] History:?colonoscop y 06/19/21 * Hospitalization/Major Diagno stic Procedure:?BIU-Tztmhonztg-VD visit 12/2018 * Family History:?Mother: alethea canales.?Father: [...] ?Exercise: yes, walking. ?Marital status: single. 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 * Medications:?TakingAbilify c lonazePAM Ciclopirox Olamine 0.77 % Cream 1 application to affected area Externally Twice a day to effected areas on feetFlomax Strathmore Carbonate 600 MG Capsule 1 capsule at [...] to effected areas on feetTaking Flomax Taking Strathmore Carbonate 600 MG Capsule 1 capsule at [...] use of a nail nipper and/or dremel-type razor grinder, to a more viable healthy nail plate or bed tissue 6-10. Silver nitrate used for any petechial bleeding as necessary. Definitive antifungal treatment options have been reviewed and discussed with the patient. The patient chooses, no pharmaceutical tx - 01474.? * Procedure Codes:?72877 DEBRI DE NAIL, 6 OR MORE, Modifiers: XS * Follow Up:?prn * Images: * Sign off status: Completed true * Provider:?Deanna Baron DPM Date:?1 Generated for Senia velásquez/Mary/eTransmitting on:?08/07/2024 02:42 PM EDT History and Physical Notes * [...]
--- OUTSIDE RECORDS SUMMARY | 2024-08-07 14:42 | XMS_ITS ---
Author Organization [facility] Address [address] [place] [address] Care Team Providers Care Rag Boiler Name Role Phone Jonn Smith Primary Care Provider [phone] Deanna Baron [phone] Medications Medication SIG (Take, Route, Frequency, Duration) [...] as needed Orally Once a day Active Lasker Carbonate 600 MG 1 capsule at be dtime Orally Once a day for 30 day(s) Active clonazePAM Active Custom Orthotics as directed A ctive Abilify Active Physical Therapy . . . 2-3x/week for 3- 4 weeks Active Night Splint AFO - L1930 as directed Active Tamsulosin HCl Activ e Zoloft 100 mg Oral Active Encounters Encounter Location Date Provider Diagnosis [facility] [address] [place] [address] 03/28/2024 Deanna Baron Plan Of Treatment No Information Progress Notes * ANTONIOBill Restrepoer PDOB:1965 (59 yo M)Acc No.[id number]:03/28/2024 Progress Note Patient:?Benjamin ALVAREZ Gill Provider:?Deanna Baron DPM :1965???Age:58 Y???Sex:Male Wilver e:03/28/2024 Address:[address] [place] [address], [facility] Pcp:Jonn Smith Subjective: * Chief Complaints: * ??? * Medical History:? * Medications:?Taking Abilify , Taking clonazePAM , Taking Ciclopirox Olamine 0.77 % Cream 1 application to affected area Externally Twice a day to effected areas on feet , Taking Flomax , Taking Lasker Carbonate 600 MG Capsule 1 capsule at [...] DPM Date:?0 03/28/2024 Generated for Senia velásquez/Mary/Marcelo on:?08/07/2024 02:42 PM EDT
--- OUTSIDE RECORDS SUMMARY | 2024-08-07 14:43 | XMS_ITS ---
Author Organization [facility] Address [address] [place] [address] Care Team Providers Care Scrap Carrier Name Role Phone Jonn Smith Primary Care Provider [phone] Deanna Baron [phone] REASON FOR VISIT No Show Encounters Encounter Location Date Provider Diagnosis [facility] [address] [place] [address] 03/28/2024 Deanna Baron Plan Of Treatment No Information Progress Notes * ANTONIO, Benjamin PDOB:1965 (58 yo M)Acc No.[id number]:03/28/2024 Patient:?Benjamin ALVAREZ Gill :1965???Age:58 Y???Sex:Male Address:[address] [place] [address] [address] , [place], [address] * true * Date:? Generated for Printi ng/Faliseg/eTransmitting on:?08/07/2024 02:42 PM EDT
--- OUTSIDE RECORDS SUMMARY | 2024-08-07 14:43 | XMS_ITS ---
Author Organization [facility] Address [address] [place] [address] Care Team Providers Care Appeals Analyst Name Role Phone BREN RHOADES Primary Care Provider Remy Groves Jr Unavailable Encounters Encounter Location Date Provider Diagnosis [facility] [address] [place] [address] 04/25/2023 Remy Rodriguez Jr Plan Of Treatment No Information Progress Notes * MULUGETA ALVAREZ PDOB:1965 (57 yo M)Acc No.[id number]:04/25/2023 Patient:?MULUGETA ALVAREZ :1965???Age:57 Y???Sex:Male Address:[address] [place] [address] [address], [place] [address] * true * Date:? Generated for Senia velásquez/Mary/eTransmitting on:?08/07/2024 02:42 PM EDT
--- OUTSIDE RECORDS SUMMARY | 2024-08-07 14:43 | XMS_ITS | Patient Health Record ---
Author Organization [facility] Address [address] [place] [address] Care Team Providers Care Lean Specialist Name Role Phone BREN RHOADES Primary Care [...] the procedure for 1 day 05/19/2021 Active Bamberg Carbonate 300 MG Oral for 30 Active [...] Problem Status W/U Status Risk Notes Problem [id number] Colon cancer screening (Z12.11) Active confirmed Problem [id number] correction (current) use of oral hypoglycemic drugs (Z79.84) Active confirmed Plan Of Treatment Future Test Test Name Order Date COLONOSCOPY 05/19/2021 Insurance Providers Payer Name Payer Address Payer Phone Subscriber Number Group Number Insured Name Patient Relationship to Insured Coverage Start Date Coverage End Date MEDICARE OF [place] [address] [place] [phone] [id number] MULUGETA ALVAREZ Self - patient is the insured MEDICAID OF [facility] [address] [place] [phone] [id number] MULUGETA ALVAREZ Self - patient is the insured Medical (General) History Medical History History ICD Code diabetes mellitus hypertension schizophrenia BPH Surgical History Surgery Date(Month/Year)
[2024-08-07 14:57] VITALS: BP 101/60; PULSE 88; RESP 188; TEMP 36.2; O2SAT 100
--- NOTE | 2024-08-07 15:09 | HO.PSYCHPN ---
Subjective Subjective Reason For Visit: catatonia Medications Medications Current Medications Acetaminophen (Acetaminophen 325 Mg Tablet) 650 mg PO Q6H PRN PRN Reason: Headache/Pain, Scale 1-10 Al Hydroxide/Mg Hydroxide (Magnesium Hydrox/Alum Hydrox 30 Ml Oral.Susp) 30 ml PO Q6H PRN PRN Reason: Heartburn/Nausea Hydroxyzine HCl (Hydroxyzine Hcl 25 Mg Tablet) 25 mg PO Q6H PRN PRN Reason: mild anxiety Magnesium Hydroxide (Milk Of Magnesia 30 Ml Oral.Susp) 30 ml PO DAILY PRN PRN Reason: Constipation Allergies Allergies Allergy/AdvReac Type Severity Reaction Status Date / Time No Known Allergies [NKA] Allergy Unknown NONE Verified 06/19/24 20:43 Assessment & Plan Time Spent With Patient Time: Total time managing care of this patient today ____ minutes.
[2024-08-07 15:21] VITALS: BMI 27.2
--- NOTE | 2024-08-07 15:44 | PC.ADMIT ---
Pt is a 59-year old male who arrived on S1 at 14:00 on a CV for the treatment of catatonia. He was hospitalized in the ICU and later on was brought to [facility] for further treatment. Pt receives biweekly ketamine treatments in PACU. Per N2N next treatment is tomorrow 08/08/2024. Pt AOx2, with some difficulty with the date and situation. During the assessment pt gave delayed responses and was difficult to engage. However, pt appeared to be trying his best to communicate with staff. Pt utilizes a walker and needs assistance while walking. Per nurse:nurse, pt is on aspiration precautions and needs assistance with feeding due to dexterity issues . Pt has an extensive history of psychiatric hospitalizations, and was most recently here on S1 for the treatment of agitated catatonia. During that time pt was restrained multiple times via medication and physical hold. When asked in regards to depression and anxiety pt stated I dont know, people have lost their sense of humor . Pt speech is difficult to understand at times and voice is monotone and flat. Affect is flat. Pt occasionally using humor and making smart remarks. Pt denies SI/HI/AH/VH. Skin check revealed a couple of cattered bruises and scratces on his arms, as well what appears to be a fungal rash on his sacrum. He signed ROIs for his pharmacy, insurance, and father, Benjamin Tenorio Sr. who is his HCP.
--- NOTE | 2024-08-07 17:25 | HO.PSYADMNOT ---
HPI Date of Service: 08/07/24 Chief Complaint: catatonia Sources of Information: patient interviewed and chart reviewed Additional Sources of Information: Patient's case reviewed with hospitalist service HPI Subjective Notes: Conditional Voluntary Narrative: Patient transferred from the medical floor he is status post ICU admission then transferred to the medical floor after respiratory event and intubation. Patient has been treated with ketamine infusions 0.5 mg per kg over 1 hour 2 times a week the patient does appear significantly improved from prior catatonia which did not respond previously that Ativan an ECT had been held secondary to patient's respiratory status. Patient has been on clozapine now 100 mg he was restarted on Depakote lorazepam 1 mg t.i.d.. Patient also on Namenda 5 b.i.d. for off-label treatment of catatonia. Patient has residual symptoms of catatonia slowed mentation has been debilitated until today on able to ambulate has been getting physical therapy. Patient's father agreeable to transfer to Psychiatry for further stabilization Patient has also required urinary catheterization he has been seen by urology Past Psychiatric History: Inpatient: multiple in the past. h/o ECT for catatonia. OP: [facility] Past medication trials: clozaril, ativan, sertraline, olanzapine. Medical Evaluation Reviewed: Yes [facility] Medical History (Updated 08/06/24 @ 10:55 by Steven Huerta MD) Tardive dyskinesia Hospital discharge follow-up Mild sleep apnea Nocturnal hypoxia Routine medical exam Joint inflammation of right hand and wrist Status post fall Adult general medical exam Screening for colon cancer Screening for prostate cancer Cough BPH (benign prostatic hyperplasia) Surgical History History of colonoscopy (~06/15/21) History of tooth extraction History of root canal procedure Family History: unknown Social History: lives independently, works, drives. apartment in [place]. Trauma History: unknown Diagnostics Vital Signs (24Hr): Vital Signs - 24 hr 08/07/24 14:57 Temperature 97.2 F Pulse Rate 88 Respiratory Rate 188 H Blood Pressure 101/60 Pulse Oximetry 100 Oxygen Delivery Method Room Air BMI result Body Mass Index 27.2 Meds/Allergies Allergies Allergies Allergy/AdvReac Type Severity Reaction Status Date / Time No Known Allergies [NKA] Allergy Unknown NONE Verified 06/19/24 20:43 Mental Status Exam Mental Status Exam Patient Appearance: Fatigued Patient Orientation: Person and Place Level of Consciousness: Alert Patient Behavior: Talkative, Cooperative and Good Eye Contact Mood Description: Calm and Constricted Affect Description: Calm and Constricted Ability to Follow Directions: Fair Speech Pattern: Spontaneous Speech Hallucinations: None (he does not appear to be responding to internal stimuli.) Thought Process: Slowed Thinking Thought Content: positive for Gerlaw and positive for Circumstantial Judgement: Poor Judgement and Insight: slowed thinking difficulty processing info Assessment & Plan Assessment & Plan (1) Schizoaffective disorder: Status: Acute Code(s): F25.9 - Schizoaffective disorder, unspecified (2) Catatonia: Status: Acute Code(s): F06.1 - Catatonic disorder due to known physiological condition (3) Urinary retention with incomplete bladder emptying: Status: Acute Code(s): R33.9 - Retention of urine, unspecified (4) Tardive dyskinesia: Status: Acute Code(s): G24.01 - Drug induced subacute dyskinesia Plan Continue ketamine Monday and case reviewed with Alex howard from [facility]. Will try and avoid ECT given patient has intermittent problematic respiratory status continue clozapine will try to keep at lower doses secondary to patient's respiratory clearing at times Patient tremulous unclear if related to Depakote or clozapine Patient educated on: medical condition Guardian/Caregiver educated on: medical condition and other (Options of ketamine ECT) Informed Consent: does not understand Reason for continued inpatient stay Substantial Risk for: inability to function, rapid decompensation and med/psych decompensation Statement Statement: I have reviewed the history and physical and performed a pertinent examination on my patient. No changes have occurred unless specified. If the History and Physical was not performed prior to admission, the Hospitalist's service will be consulted for completing the admission physical. Time Spent With Patient Time: Total time managing care of this patient today ____ minutes.
[2024-08-07 20:00] VITALS: BP 134/84; PULSE 86; RESP 16; TEMP 36.4; O2SAT 97
[2024-08-08] VITALS (11 sets, daily range): BP systolic 110–133; BP diastolic 63–84; PULSE 83–94; RESP 14–19; TEMP 36.3–36.6; O2SAT 94–98; BMI 27.4
[2024-08-08 08:00] LABS: Hemoglobin A1C 118.5849 umol/L; Total Hemoglobin (HGBA1C) 3097.9297 umol/L
[2024-08-08] MEDS: Ketamine HCl 500 MG in 0.9 % Sodium Chloride 250 ML 21.2 MG IV (08:00)
[2024-08-08 08:15] LABS: Alanine Aminotransferase 25 U/L (0-40); Albumin Level 3.3 g/dL (3.5-5.0); Alkaline Phosphatase 51 U/L (39-117); Anion Gap 14 (12-20); Aspartate Amino Transferase 22 U/L (5-37); Blood Urea Nitrogen 16 mg/dL (9-16); Calcium 8.9 mg/dL (8.4-10.2); Carbon Dioxide 27 mmol/L (22-29); Chloride 105 mmol/L (96-108); Cholesterol 114 mg/dL (<200); Creatinine Clr Calc Pharmacy 72.4; Estimated Glomerular Filt Rate > 60; HDL Cholesterol 30 mg/dL (>40); Potassium 4.5 mmol/L (3.3-5.1); Sodium 141 mmol/L (135-145); Total Protein 6.0 g/dL (6.5-8.0); Triglycerides 74 mg/dL (<150)
[2024-08-08 08:29] LABS: Thyroid Stimulating Hormone 0.72 uIU/mL (0.32-4.0)
[2024-08-08 08:40] LABS: Folate 5.8 ng/mL (> or = 4.0); Vitamin B12 452 pg/mL (200-900)
--- NOTE | 2024-08-08 09:15 | MHC.CLN ---
NUTRITION PATIENT KNOWN FROM [facility]IOR [facility], ICU AND MEDICAL FLOORS ADM. CURRENTLY NO DIET ORDER DUE TO PATIENT RECEIVING KETAMINE INFUSION THIS AM. RECOMMEND CONTINUE GROUND DIET WHEN ABLE. HAD BEEN RECEIVING ENSURE TID AND MAGIC CUP TID. RD TO CHECK FOR SUPPLEMENT ACCEPTANCE. HAD DTI TO SACRUM AND IS RESOLVED PER WOUND RN. RECENT HX OF VARIABLE PO INTAKE. RD TO FOLLOW FOR PO INTAKE AND SUPPLEMENT PREFERENCES.
--- NOTE | 2024-08-08 22:07 | HO.PSYCHPN ---
Subjective Subjective Date of Service: 08/08/24 Reason For Visit: catatonia Healthcare Proxy: Yes Interim History: Patient has been transferred down to Psychiatry he did complete ketamine infusion. Slowed mentation restrictive responses he is ambulating with a walker. Case reviewed with [facility] patient not overly agitated combative has been eating and drinking Dove catheter remains Mental Status Exam Mental Status Exam Patient Appearance: Fatigued Patient Orientation: Person and Place Level of Consciousness: Drowsy Patient Behavior: Talkative, Cooperative and Good Eye Contact Mood Description: Calm and Constricted Affect Description: Calm and Constricted Ability to Follow Directions: Fair Speech Pattern: Spontaneous Speech Hallucinations: None (he does not appear to be responding to internal stimuli.) Thought Process: Slowed Thinking Thought Content: positive for Welch and positive for Circumstantial Judgement: Poor Judgement and Insight: slowed thinking difficulty processing info Diagnostics Vital Signs (24Hr): Vital Signs - 24 hr 08/08/24 07:50 08/08/24 08:00 08/08/24 08:05 Temperature 97.7 F 97.3 F Pulse Rate 87 84 87 Respiratory Rate 16 14 16 Blood Pressure 121/72 127/70 126/78 Pulse Oximetry 96 97 96 Oxygen Delivery Method Room Air Room Air Room Air 08/08/24 08:20 08/08/24 08:35 08/08/24 08:50 Temperature Pulse Rate 90 91 84 Respiratory Rate 16 16 16 Blood Pressure 127/79 114/76 122/77 Pulse Oximetry 98 98 98 Oxygen Delivery Method Room Air Room Air Room Air 08/08/24 09:05 08/08/24 09:20 08/08/24 09:35 Temperature Pulse Rate 84 94 83 Respiratory Rate 19 16 16 Blood Pressure 128/76 124/71 116/63 Pulse Oximetry 97 98 98 Oxygen Delivery Method Room Air Room Air Room Air 08/08/24 09:50 Temperature Pulse Rate 90 Respiratory Rate 16 Blood Pressure 110/81 Pulse Oximetry 97 Oxygen Delivery Method Room Air BMI result Body Mass Index 27.2 Labs 08/08/24 07:25 Labs: Laboratory Results - last 48 hr 08/08/24 07:25 Sodium 141 Potassium 4.5 Chloride 105 Carbon Dioxide 27 Anion Gap 14 BUN 16 Creatinine 1.07 Estim Creat Clear Calc 72.4 Estimated GFR > 60 Random Glucose 122 H Estimat Average Glucose 117 Hemoglobin A1c % 5.7 Calcium 8.9 D Total Bilirubin 0.3 AST 22 ALT 25 Alkaline Phosphatase 51 Total Protein 6.0 L Albumin 3.3 L Triglycerides 74 Cholesterol 114 LDL Cholesterol, Calc 70 HDL Cholesterol 30 L Vitamin B12 452 Folate 5.8 TSH 0.72 Valproic Acid < 12.5 L Medications Medications Current Medications Acetaminophen (Acetaminophen 325 Mg Tablet) 650 mg PO Q6H PRN PRN Reason: Headache/Pain, Scale 1-10 Al Hydroxide/Mg Hydroxide (Magnesium Hydrox/Alum Hydrox 30 Ml Oral.Susp) 30 ml PO Q6H PRN PRN Reason: Heartburn/Nausea Clozapine (Clozapine 100 Mg Tablet) 100 mg PO BEDTIME [facility] Last Admin: 08/07/24 20:36 Dose: 100 mg Divalproex Sodium (Divalproex Sodium 250 Mg Tablet.Dr) 250 mg PO BID [facility] Last Admin: 08/08/24 20:39 Dose: 250 mg Finasteride (Finasteride 5 Mg Tablet) 5 mg PO DAILY [facility] Lorazepam (Lorazepam 1 Mg Tablet) 1 mg PO TID [facility] Last Admin: 08/08/24 20:39 Dose: 1 mg Magnesium Hydroxide (Milk Of Magnesia 30 Ml Oral.Susp) 30 ml PO DAILY PRN PRN Reason: Constipation Memantine (Memantine Hcl 5 Mg Tablet) 5 mg PO BID [facility] Last Admin: 08/08/24 20:39 Dose: 5 mg Olanzapine (Olanzapine Odt 10 Mg Tab.Rapdis) 5 mg TRANSLINGU BID PRN PRN Reason: agitation Sodium Chloride (0.9 % Sodium Chloride Flush 10 Ml Syringe) 5 ml IVFLUSH QSHIFT [facility] Tamsulosin HCl (Tamsulosin Hcl 0.4 Mg Capsule) 0.8 mg PO BEDTIME [facility] Last Admin: 08/07/24 20:36 Dose: 0.8 mg Allergies Allergies Allergy/AdvReac Type Severity Reaction Status Date / Time No Known Allergies [NKA] Allergy Unknown NONE Verified 06/19/24 20:43 Assessment & Plan Assessment & Plan (1) Schizoaffective disorder: Status: Acute Code(s): F25.9 - Schizoaffective disorder, unspecified (2) Catatonia: Status: Acute Code(s): F06.1 - Catatonic disorder due to known physiological condition (3) Urinary retention with incomplete bladder emptying: Status: Acute Code(s): R33.9 - Retention of urine, unspecified (4) Tardive dyskinesia: Status: Acute Code(s): G24.01 - Drug induced subacute dyskinesia Plan Continue ketamine Monday and case reviewed with Alex howard from [facility]. Will try and avoid ECT given patient has intermittent problematic respiratory status continue clozapine will try to keep at lower doses secondary to patient's respiratory clearing at times Patient tremulous unclear if related to Depakote or clozapine will d/c depakote for now Case reviewed with patient's healthcare proxy patient's father treatment plan reviewed long-term recovery also discussed Guardian/Caregiver educated on: diagnosis, medication risk/benefits and medical condition Reason for continued inpatient stay Substantial Risk for: inability to function, rapid decompensation and med/psych decompensation Time Spent With Patient Time: Total time managing care of this patient today ____ minutes.
[2024-08-09] MEDS: 0.9 % Sodium Chloride Flush 10 ML SYRINGE 5 ML IVFLUSH ×3 (00:05→08:39)
[2024-08-09 08:00] VITALS: BP 117/64; PULSE 85; RESP 16; TEMP 36.7; O2SAT 93
--- NOTE | 2024-08-09 09:49 | HO.PM.IMCN ---
History of Present Illness Data of Consult Service Date: 08/09/24 Requesting physician: Steven Huerta Primary Care Provider: Unknown Physician HPI Reason for consult: Medical consult 59-year-old male with PMH of schizoaffective disorder, who lives alone in the community with services. in the community. He was initially admitted to the psych unit on 06/21/2024 due to worsening catatonia. He received his scheduled ECT following which is saturations dropped, there was some concerns for pneumonitis. He was initially treated in the ICU on ketamine drip due to agitation and catatonia. Pt required intubation on 07/17 and successfully extubated on 07/18. Hospital stay complicated by continued episodes of catatonia and agitation requiring ketamine drip infusions on 07/19 and 07/23. Original recommendation was for TPN, however pt had NGT placed and nourished with tube feeds. He is now taking po, meal intakes reported at 100%. He is now on [facility] psych for continued care. He has had several medication adjustments. His blood pressure is stable. No repeat episodes of hypoxia and pt not requiring supplemental O2. He continues to undergo ketamine infusions on Tuesdays and in the PACU. Patient is being seen today for evaluation of DTI versus fungal rash to sacrum. On exam he is alert, answers questions, engages with staff. Slow to answer but answers appropriately. Turns and repositions self in bed, ambulates with walker. Patient is tremulous. Review of Systems Review of Systems: Reports occasional shortness of breath, chest pain, vague and non specific. Denies abdominal pain. [facility] Medical History (Updated 08/09/24 @ 10:25 by Isha Ferrari DNP) Tardive dyskinesia Hospital discharge follow-up Mild sleep apnea Nocturnal hypoxia Routine medical exam Joint inflammation of right hand and wrist Status post fall Adult general medical exam Screening for colon cancer Screening for prostate cancer Cough BPH (benign prostatic hyperplasia) Family History Mother Cancer Father Kidney agenesis Surgical History History of colonoscopy (~06/15/21) History of tooth extraction History of root canal procedure Social History Household Members: Family Housing: Apartment Are you a primary healthcare associate to a significant other at home: No Do you presently have visiting nurse or other home services: Yes Unable to assess alcohol history related to: Unable to respond Alcohol intake: former Comment: 1 to 1 sitter present Patient Tobacco Use Status: Never used Tobacco e-Cigarette/Vaping Use: Never Used Second Hand Smoke Exposure: No Have you been hit, kicked, punched, or otherwise hurt by someone within the past year? If so, by whom?: No Do you feel safe in your current relationship?: No Current Relationship Is there a partner from a previous relationship who is making you feel unsafe now?: No Are you made to feel afraid or neglected: No Advance Directives: No Advance Directives Information Provided: Yes Do you have thoughts of harming others: None Do you have a plan to hurt others: No Plan Recently lost weight without trying: Yes How much weight loss: 14-23 pounds Eating poorly because of decreased appetite: Yes Nutrition screen score: 5 Nutrition Risks: On aspiration precautions Poor oral hygiene: No service: No Current occupational status: employed Sexual orientation: Straight/Heterosexual Cognitive needs: No Hearing needs: No Vision needs: No Meds Allergies Allergy/AdvReac Type Severity Reaction Status Date / Time No Known Allergies [NKA] Allergy Unknown NONE Verified 06/19/24 20:43 Active Medications: Current Medications Acetaminophen (Acetaminophen 325 Mg Tablet) 650 mg PO Q6H PRN PRN Reason: Headache/Pain, Scale 1-10 Al Hydroxide/Mg Hydroxide (Magnesium Hydrox/Alum Hydrox 30 Ml Oral.Susp) 30 ml PO Q6H PRN PRN Reason: Heartburn/Nausea Clozapine (Clozapine 100 Mg Tablet) 100 mg PO BEDTIME [facility] Last Admin: 08/07/24 20:36 Dose: 100 mg Divalproex Sodium (Divalproex Sodium 250 Mg Tablet.Dr) 250 mg PO BID [facility] Last Admin: 08/09/24 08:36 Dose: 250 mg Finasteride (Finasteride 5 Mg Tablet) 5 mg PO DAILY [facility] Last Admin: 08/09/24 08:36 Dose: 5 mg Lorazepam (Lorazepam 1 Mg Tablet) 1 mg PO TID [facility] Last Admin: 08/09/24 08:36 Dose: 1 mg Magnesium Hydroxide (Milk Of Magnesia 30 Ml Oral.Susp) 30 ml PO DAILY PRN PRN Reason: Constipation Memantine (Memantine Hcl 5 Mg Tablet) 5 mg PO BID [facility] Last Admin: 08/09/24 08:37 Dose: 5 mg Olanzapine (Olanzapine Odt 10 Mg Tab.Rapdis) 5 mg TRANSLINGU BID PRN PRN Reason: agitation Sodium Chloride (0.9 % Sodium Chloride Flush 10 Ml Syringe) 5 ml IVFLUSH QSHIFT [facility] Last Admin: 08/09/24 08:39 Dose: 5 ml Tamsulosin HCl (Tamsulosin Hcl 0.4 Mg Capsule) 0.8 mg PO BEDTIME [facility] Last Admin: 08/07/24 20:36 Dose: 0.8 mg Physical Exam Vital Signs and Narrative: Vital Signs: Last Vital Signs Temp 97.9 F 08/08/24 20:00 Pulse 84 08/08/24 20:00 Resp 16 08/08/24 20:00 BP 133/84 08/08/24 20:00 Pulse Ox 94 08/08/24 20:00 O2 Del Method Room Air 08/08/24 20:00 BMI result Body Mass Index 27.2 CONST: Alert in NAD. Well nourished. Tremulous HEENT: Normocephalic, atraumatic, MMM, Eyes clear RESP: Lungs clear, RRR even and regular HEART:,RRR, S1, S2. no edema GI:Abdomen Soft NT, ND. + BS times four :Deferred SKIN: Warm dry and intact, [place] scaly discolored with well defined edges, on close inspection small healed stage 2 with slight maceration. No open area, no drainage. NEURO:CN II-XII Intact bilaterally, Sensation intact. Speech slow but clear. PSYCH: Quiet and cooperative. No calve tenderness. Results Labs 08/08/24 07:25 Assessment and Plan (1) Intertriginous dermatitis associated with moisture: Status: Acute Plan DTI sacrum/Intertriginous dermatitis Off Load Pressure with Q2 hr turns and use of pillows. Apply with foam dressing to aid in off loading and protection from friction. Change every 3 days and PRN. Clotrimazole 1% to sacral rash BID for two weeks. Depression with decompensation of schizophrenia, catatonia and agitation Status post multiple incisions of ketamine, last on 08/01. Now scheduled Twice weekly in PACU, last 08/08/2024 Continue Clozaril Doing better, awake, communicating, eating Treatment per psych team. Urinary retention/BPH Flomax increased to 0.8mg, Finesteride Dove placed (08/05/2024) catheter to stay in 2 weeks and then removed for voiding trial. Can be done at rehab facility if he is discharged. Switch from overnight drainage bag to catheter cap to be used during the day to encourage mobilization. Aspiration PNA Requiring ICU and intubation Received course of ampicillin Dysphagia Tolerating diet Aspiration precautions
[2024-08-09 10:24] VITALS: BP 117/64; PULSE 85; O2SAT 93
--- NOTE | 2024-08-09 10:26 | PC.NURSE ---
wound nurse in to examine sacral coccyx region no open area noted but the area is fungal.
--- NOTE | 2024-08-09 13:52 | MHC.CLN ---
F/U DIET=GROUND CONSISTENCY. SUPPLEMENT ENSURE TID AND MAGIC CUP TID. PATIENT IS ACCEPTING FOODS. PO INTAKE IS VARIABLE. RD TO MONITOR WEEKLY.
--- NOTE | 2024-08-09 14:37 | PC.NURSE ---
Pt reported numbness right wrist to elbow area at 1430. Right hand and foot tremor noted, left facial tremor noted. Dr Huerta notified and evaluated pt. Pt reported right lower arm stiffness when evaluated by Dr Huerta. New orders: Neurology consult at present time. Dr Huerta to review meds.
[2024-08-09] MEDS: Clotrimazole 1 % Cream 15 GM TUBE 1 APPL TOPICAL ×2 (15:02→21:45)
[2024-08-09 20:00] VITALS: BP 131/70; PULSE 98; RESP 18; TEMP 36.7; O2SAT 97
--- NOTE | 2024-08-09 21:39 | PC.NURSE ---
IV line occluded/supervisor propellant charge loading called/access service representative assessed the IV line, able to clear occlusion, flushed the IV line, line is now patent, and patient tolerated the procedure well., will continue to monitor
--- NOTE | 2024-08-09 21:57 | HO.PSYCHPN ---
Subjective Subjective Date of Service: 08/09/24 Reason For Visit: catatonia Subjective Notes: Conditional Voluntary Healthcare Proxy: Yes Interim History: Patient generally has shown significant improvement. He is alert the walk has been eating drinking he remains on one-to-one because of unsteady gait. Vital signs stable afebrile pulse oxygen okay. Patient complains of some right arm rigidity facial tremor and hand tremor noted. 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 no hallucinations no delusional material mood somewhat anxious psychomotor retardation noted difficulty with balance on ambulation Diagnostics Vital Signs (24Hr): Vital Signs - 24 hr 08/09/24 08:00 08/09/24 10:24 Temperature 98.1 F Pulse Rate 85 85 Respiratory Rate 16 Blood Pressure 117/64 117/64 Pulse Oximetry 93 93 Oxygen Delivery Method Room Air BMI result Body Mass Index 27.4 Labs 08/08/24 07:25 Labs: Laboratory Results - last 48 hr 08/08/24 07:25 Sodium 141 Potassium 4.5 Chloride 105 Carbon Dioxide 27 Anion Gap 14 BUN 16 Creatinine 1.07 Estim Creat Clear Calc 72.4 Estimated GFR > 60 Random Glucose 122 H Estimat Average Glucose 117 Hemoglobin A1c % 5.7 Calcium 8.9 D Total Bilirubin 0.3 AST 22 ALT 25 Alkaline Phosphatase 51 Total Protein 6.0 L Albumin 3.3 L Triglycerides 74 Cholesterol 114 LDL Cholesterol, Calc 70 HDL Cholesterol 30 L Vitamin B12 452 Folate 5.8 TSH 0.72 Valproic Acid < 12.5 L Medications Medications Current Medications Acetaminophen (Acetaminophen 325 Mg Tablet) 650 mg PO Q6H PRN PRN Reason: Headache/Pain, Scale 1-10 Al Hydroxide/Mg Hydroxide (Magnesium Hydrox/Alum Hydrox 30 Ml Oral.Susp) 30 ml PO Q6H PRN PRN Reason: Heartburn/Nausea Clotrimazole (Clotrimazole 1 % Cream 15 Gm Tube) 1 appl TOPICAL BID KRISTIN; Protocol Stop: 08/23/24 10:29 Last Admin: 08/09/24 21:45 Dose: 1 appl Clozapine (Clozapine 100 Mg Tablet) 100 mg PO BEDTIME [facility] Last Admin: 08/07/24 20:36 Dose: 100 mg Divalproex Sodium (Divalproex Sodium 250 Mg Tablet.Dr) 125 mg PO BID [facility] Last Admin: 08/09/24 21:44 Dose: 125 mg Finasteride (Finasteride 5 Mg Tablet) 5 mg PO DAILY [facility] Last Admin: 08/09/24 08:36 Dose: 5 mg Lorazepam (Lorazepam 1 Mg Tablet) 1 mg PO TID [facility] Last Admin: 08/09/24 21:43 Dose: 1 mg Magnesium Hydroxide (Milk Of Magnesia 30 Ml Oral.Susp) 30 ml PO DAILY PRN PRN Reason: Constipation Olanzapine (Olanzapine Odt 10 Mg Tab.Rapdis) 5 mg TRANSLINGU BID PRN PRN Reason: agitation Sodium Chloride (0.9 % Sodium Chloride Flush 10 Ml Syringe) 5 ml IVFLUSH QSHIFT [facility] Last Admin: 08/09/24 21:38 Dose: Not Given Tamsulosin HCl (Tamsulosin Hcl 0.4 Mg Capsule) 0.8 mg PO BEDTIME [facility] Last Admin: 08/07/24 20:36 Dose: 0.8 mg Allergies Allergies Allergy/AdvReac Type Severity Reaction Status Date / Time No Known Allergies [NKA] Allergy Unknown NONE Verified 06/19/24 20:43 Assessment & Plan Assessment & Plan (1) Schizoaffective disorder: Status: Acute Code(s): F25.9 - Schizoaffective disorder, unspecified (2) Catatonia: Status: Acute Code(s): F06.1 - Catatonic disorder due to known physiological condition (3) Urinary retention with incomplete bladder emptying: Status: Acute Code(s): R33.9 - Retention of urine, unspecified (4) Intertriginous dermatitis associated with moisture: Status: Acute Code(s): L30.4 - Erythema intertrigo Plan DTI sacrum/Intertriginous dermatitis Off Load Pressure with Q2 hr turns and use of pillows. Apply with foam dressing to aid in off loading and protection from friction. Change every 3 days and PRN. Clotrimazole 1% to sacral rash BID for two weeks. Psychiatric assessment and plan Medical note and plan read and appreciated patient currently remains with Dove catheter he is on tamsulosin and finasteride. Patient has worsening tremor did miss a dose of clozapine last night question withdrawal tremor unclear rigidity. Tremor may have also been precipitated by Depakote being restarted Clozapine 25 now 100 at bedtime Neuro consult question worsening tremor unusual rigidity patient not on traditional antipsychotics. Namenda in case any interaction with ketamine Monitor response to lowering Depakote and discontinuing Namenda. Patient denies any current auditory hallucinations no gross psychosis limited catatonia symptoms noted Depression with decompensation of schizophrenia, catatonia and agitation Status post multiple incisions of ketamine, last on 08/01. Now scheduled Twice weekly in PACU, last 08/08/2024 Continue Clozaril Doing better, awake, communicating, eating Treatment per psych team. Urinary retention/BPH Flomax increased to 0.8mg, Finesteride Dove placed (08/05/2024) catheter to stay in 2 weeks and then removed for voiding trial. Can be done at rehab facility if he is discharged. Switch from overnight drainage bag to catheter cap to be used during the day to encourage mobilization. Aspiration PNA Requiring ICU and intubation Received course of ampicillin Dysphagia Tolerating diet Aspiration precautions Patient educated on: medication risk/benefits and medical condition Informed Consent: further education needed Reason for continued inpatient stay Substantial Risk for: inability to function and rapid decompensation Time Spent With Patient Time: Total time managing care of this patient today ____ minutes.
--- NOTE | 2024-08-10 07:41 | P.PNPSI_ITS ---
Subjective Subjective Date of Service: 08/10/24 Reason For Visit: catatonia Subjective Notes: Conditional Voluntary Healthcare Proxy: Yes Interim History: met with patient. Discussed with Nursing. Noted yesterday right arm discomfort reviewed and neurology consult pending. Patient reports overall he is doing okay. Walking in the hallways with walker and one-to-one support. Reports having right arm pain in the past and it was nerve related. Unsure if he has been on gabapentin before. Denied psychosis or SI Medication Compliance: Yes Side effects from medications: No Attending Groups: No Review of Systems Acute medical concerns: No Mental Status Exam Mental Status Exam Narrative: hospital clothing. Fair self-care. He utilizing walker in milieu. Engaged. Flat affect. Denied depression SI or psychosis. Insight and judgment fair Diagnostics Vital Signs (24Hr): Vital Signs - 24 hr 08/09/24 08:00 08/09/24 10:24 08/09/24 20:00 Temperature 98.1 F 98.1 F Pulse Rate 85 85 98 Respiratory Rate 16 18 Blood Pressure 117/64 117/64 131/70 Pulse Oximetry 93 93 97 Oxygen Delivery Method Room Air Room Air BMI result Body Mass Index 27.4 Labs 08/08/24 07:25 Labs: Laboratory Results - last 48 hr 08/08/24 07:25 Sodium 141 Potassium 4.5 Chloride 105 Carbon Dioxide 27 Anion Gap 14 BUN 16 Creatinine 1.07 Estim Creat Clear Calc 72.4 Estimated GFR > 60 Random Glucose 122 H Estimat Average Glucose 117 Hemoglobin A1c % 5.7 Calcium 8.9 D Total Bilirubin 0.3 AST 22 ALT 25 Alkaline Phosphatase 51 Total Protein 6.0 L Albumin 3.3 L Triglycerides 74 Cholesterol 114 LDL Cholesterol, Calc 70 HDL Cholesterol 30 L Vitamin B12 452 Folate 5.8 TSH 0.72 Valproic Acid < 12.5 L Medications Medications Current Medications Acetaminophen (Acetaminophen 325 Mg Tablet) 650 mg PO Q6H PRN PRN Reason: Headache/Pain, Scale 1-10 Al Hydroxide/Mg Hydroxide (Magnesium Hydrox/Alum Hydrox 30 Ml Oral.Susp) 30 ml PO Q6H PRN PRN Reason: Heartburn/Nausea Clotrimazole (Clotrimazole 1 % Cream 15 Gm Tube) 1 appl TOPICAL BID [facility]; Protocol Stop: 08/23/24 10:29 Last Admin: 08/09/24 21:45 Dose: 1 appl Clozapine (Clozapine 100 Mg Tablet) 100 mg PO BEDTIME [facility] Last Admin: 08/07/24 20:36 Dose: 100 mg Divalproex Sodium (Divalproex Sodium 250 Mg Tablet.Dr) 125 mg PO BID [facility] Last Admin: 08/09/24 21:44 Dose: 125 mg Finasteride (Finasteride 5 Mg Tablet) 5 mg PO DAILY [facility] Last Admin: 08/09/24 08:36 Dose: 5 mg Lorazepam (Lorazepam 1 Mg Tablet) 1 mg PO TID [facility] Last Admin: 08/09/24 21:43 Dose: 1 mg Magnesium Hydroxide (Milk Of Magnesia 30 Ml Oral.Susp) 30 ml PO DAILY PRN PRN Reason: Constipation Olanzapine (Olanzapine Odt 10 Mg Tab.Rapdis) 5 mg TRANSLINGU BID PRN PRN Reason: agitation Sodium Chloride (0.9 % Sodium Chloride Flush 10 Ml Syringe) 5 ml IVFLUSH QSHIFT [facility] Last Admin: 08/10/24 01:17 Dose: Not Given Tamsulosin HCl (Tamsulosin Hcl 0.4 Mg Capsule) 0.8 mg PO BEDTIME [facility] Last Admin: 08/07/24 20:36 Dose: 0.8 mg Allergies Allergies Allergy/AdvReac Type Severity Reaction Status Date / Time No Known Allergies [NKA] Allergy Unknown NONE Verified 06/19/24 20:43 Assessment & Plan Assessment & Plan (1) Schizoaffective disorder: Status: Acute Code(s): F25.9 - Schizoaffective disorder, unspecified (2) Catatonia: Status: Acute Code(s): F06.1 - Catatonic disorder due to known physiological condition (3) Urinary retention with incomplete bladder emptying: Status: Acute Code(s): R33.9 - Retention of urine, unspecified (4) Intertriginous dermatitis associated with moisture: Status: Acute Code(s): L30.4 - Erythema intertrigo Plan DTI sacrum/Intertriginous dermatitis Off Load Pressure with Q2 hr turns and use of pillows. Apply with foam dressing to aid in off loading and protection from friction. Change every 3 days and PRN. Clotrimazole 1% to sacral rash BID for two weeks. Psychiatric assessment and plan Medical note and plan read and appreciated patient currently remains with Dove catheter he is on tamsulosin and finasteride. Patient has worsening tremor did miss a dose of clozapine last night question withdrawal tremor unclear rigidity. Tremor may have also been precipitated by Depakote being restarted Clozapine 25 now 100 at bedtime Neuro consult question worsening tremor unusual rigidity patient not on traditional antipsychotics. Namenda in case any interaction with ketamine Monitor response to lowering Depakote and discontinuing Namenda. Patient denies any current auditory hallucinations no gross psychosis limited catatonia symptoms noted Depression with decompensation of schizophrenia, catatonia and agitation Status post multiple incisions of ketamine, last on 08/01. Now scheduled Twice weekly in PACU, last 08/08/2024 Continue Clozaril Doing better, awake, communicating, eating Treatment per psych team. Urinary retention/BPH Flomax increased to 0.8mg, Finesteride Dove placed (08/05/2024) catheter to stay in 2 weeks and then removed for voiding trial. Can be done at rehab facility if he is discharged. Switch from overnight drainage bag to catheter cap to be used during the day to encourage mobilization. Aspiration PNA Requiring ICU and intubation Received course of ampicillin Dysphagia Tolerating diet Aspiration precautions 08/10/2024: Add gabapentin 100 mg 2 times per day for arm pain which might be no related as patient reports from past experience. Neurology consult pending. Otherwise no changes Reason for continued inpatient stay Substantial Risk for: inability to function and rapid decompensation Time Spent With Patient Time: Total time managing care of this patient today ____ minutes.
[2024-08-10 08:00] VITALS: BP 131/70; PULSE 91; RESP 18; TEMP 36.6; O2SAT 95
[2024-08-10] MEDS: Clotrimazole 1 % Cream 15 GM TUBE 1 APPL TOPICAL ×2 (08:53→20:56)
[2024-08-10] MEDS: 0.9 % Sodium Chloride Flush 10 ML SYRINGE 5 ML IVFLUSH ×3 (09:14→23:09)
[2024-08-10 20:00] VITALS: BP 120/68; PULSE 92; RESP 18; TEMP 36.7; O2SAT 94
[2024-08-11 08:00] VITALS: BP 126/62; PULSE 86; RESP 16; TEMP 36.6; O2SAT 95
[2024-08-11 08:48] LABS: Neut%MD 60.2 %; WBCANC 5.4 X10*3/uL
[2024-08-11] MEDS: Clotrimazole 1 % Cream 15 GM TUBE 1 APPL TOPICAL ×2 (11:26→20:30)
[2024-08-11] MEDS: 0.9 % Sodium Chloride Flush 10 ML SYRINGE 5 ML IVFLUSH ×2 (11:29→15:44)
--- NOTE | 2024-08-11 16:17 | HO.PSYCHPN ---
Subjective Subjective Date of Service: 08/11/24 Reason For Visit: catatonia Subjective Notes: Conditional Voluntary Interim History: On one to one due to fall risk. Some latency of response but able to answer most questions. States he is depressed with passive SI. Eating and sleeping OK. Denies physical complaints. Medication Compliance: Yes Side effects from medications: No Review of Systems Acute medical concerns: No Medical Review of Systems: unchanged Mental Status Exam Mental Status Exam Patient Appearance: Disheveled Patient Orientation: Person, Place, Time and Situation Level of Consciousness: Lethargic Patient Behavior: Fatigued Mood Description: Depressed Affect Description: Blunted Patient Cognition Impaired: No Ability to Follow Directions: Good Speech Pattern: Impoverished and Soft-Spoken Hallucinations: None Delusions: Not Present Thought Process: Linear Thought Content: positive for Poverty of Content Depressive Symptoms: Sleeping More Than Usual, Loss of Int. in Activity and Increased Fatigue Abnormal Motor Activity Signs and Symptoms: Psychomotor Retardation Judgement: Fair Diagnostics Vital Signs (24Hr): Vital Signs - 24 hr 08/10/24 20:00 08/11/24 08:00 Temperature 98.1 F 97.9 F Pulse Rate 92 86 Respiratory Rate 18 16 Blood Pressure 120/68 126/62 Pulse Oximetry 94 95 Oxygen Delivery Method Room Air Room Air BMI result Body Mass Index 27.4 Labs 08/08/24 07:25 Labs: Laboratory Results - last 48 hr 08/11/24 08:43 Absolute Neuts (auto) 3.2 Medications Medications Current Medications Acetaminophen (Acetaminophen 325 Mg Tablet) 650 mg PO Q6H PRN PRN Reason: Headache/Pain, Scale 1-10 Al Hydroxide/Mg Hydroxide (Magnesium Hydrox/Alum Hydrox 30 Ml Oral.Susp) 30 ml PO Q6H PRN PRN Reason: Heartburn/Nausea Clotrimazole (Clotrimazole 1 % Cream 15 Gm Tube) 1 appl TOPICAL BID [facility]; Protocol Stop: 08/23/24 10:29 Last Admin: 08/11/24 11:26 Dose: 1 appl Clozapine (Clozapine 100 Mg Tablet) 100 mg PO BEDTIME [facility] Last Admin: 08/10/24 20:55 Dose: 100 mg Divalproex Sodium (Divalproex Sodium 250 Mg Tablet.Dr) 125 mg PO BID [facility] Last Admin: 08/11/24 09:00 Dose: 125 mg Finasteride (Finasteride 5 Mg Tablet) 5 mg PO DAILY [facility] Last Admin: 08/11/24 09:00 Dose: 5 mg Gabapentin (Gabapentin 100 Mg Capsule) 100 mg PO BID [facility] Last Admin: 08/11/24 09:01 Dose: 100 mg Lorazepam (Lorazepam 1 Mg Tablet) 1 mg PO TID [facility] Last Admin: 08/11/24 15:42 Dose: 1 mg Magnesium Hydroxide (Milk Of Magnesia 30 Ml Oral.Susp) 30 ml PO DAILY PRN PRN Reason: Constipation Olanzapine (Olanzapine Odt 10 Mg Tab.Rapdis) 5 mg TRANSLINGU BID PRN PRN Reason: agitation Sodium Chloride (0.9 % Sodium Chloride Flush 10 Ml Syringe) 5 ml IVFLUSH QSHIFT [facility] Last Admin: 08/11/24 15:44 Dose: 5 ml Tamsulosin HCl (Tamsulosin Hcl 0.4 Mg Capsule) 0.8 mg PO BEDTIME [facility] Last Admin: 08/07/24 20:36 Dose: 0.8 mg Allergies Allergies Allergy/AdvReac Type Severity Reaction Status Date / Time No Known Allergies [NKA] Allergy Unknown NONE Verified 06/19/24 20:43 Assessment & Plan Assessment & Plan (1) Schizoaffective disorder: Status: Acute Code(s): F25.9 - Schizoaffective disorder, unspecified (2) Catatonia: Status: Acute Code(s): F06.1 - Catatonic disorder due to known physiological condition (3) Urinary retention with incomplete bladder emptying: Status: Acute Code(s): R33.9 - Retention of urine, unspecified (4) Intertriginous dermatitis associated with moisture: Status: Acute Code(s): L30.4 - Erythema intertrigo Plan DTI sacrum/Intertriginous dermatitis Off Load Pressure with Q2 hr turns and use of pillows. Apply with foam dressing to aid in off loading and protection from friction. Change every 3 days and PRN. Clotrimazole 1% to sacral rash BID for two weeks. Psychiatric assessment and plan Medical note and plan read and appreciated patient currently remains with Dove catheter he is on tamsulosin and finasteride. Patient has worsening tremor did miss a dose of clozapine last night question withdrawal tremor unclear rigidity. Tremor may have also been precipitated by Depakote being restarted Clozapine 25 now 100 at bedtime Neuro consult question worsening tremor unusual rigidity patient not on traditional antipsychotics. Namenda in case any interaction with ketamine Monitor response to lowering Depakote and discontinuing Namenda. Patient denies any current auditory hallucinations no gross psychosis limited catatonia symptoms noted Depression with decompensation of schizophrenia, catatonia and agitation Status post multiple incisions of ketamine, last on 08/01. Now scheduled Twice weekly in PACU, last 08/08/2024 Continue Clozaril Doing better, awake, communicating, eating Treatment per psych team. Urinary retention/BPH Flomax increased to 0.8mg, Finesteride Dove placed (08/05/2024) catheter to stay in 2 weeks and then removed for voiding trial. Can be done at rehab facility if he is discharged. Switch from overnight drainage bag to catheter cap to be used during the day to encourage mobilization. Aspiration PNA Requiring ICU and intubation Received course of ampicillin Dysphagia Tolerating diet Aspiration precautions 08/10/2024: Add gabapentin 100 mg 2 times per day for arm pain which might be no related as patient reports from past experience. Neurology consult pending. Otherwise no changes 08/11/25: no med changes, no Neuro consult yet Reason for continued inpatient stay Substantial Risk for: harm to self and inability to function Time Spent With Patient Time: Total time managing care of this patient today ____ minutes.
[2024-08-11 20:00] VITALS: BP 142/61; PULSE 75; RESP 18; TEMP 36.3; O2SAT 95
[2024-08-12] MEDS: 0.9 % Sodium Chloride Flush 10 ML SYRINGE 5 ML IVFLUSH ×4 (00:30→23:02)
[2024-08-12 08:00] VITALS: BP 124/60; RESP 19; TEMP 36.4; O2SAT 96
--- NOTE | 2024-08-12 09:00 | P.PNPSI_ITS ---
Subjective Subjective Date of Service: 08/12/24 Reason For Visit: catatonia Subjective Notes: Conditional Voluntary Healthcare Proxy: Yes Interim History: Pt more alert ambulating with walker seen by neuro to consider parkinsonism trial of dopaminergic agent vss/ continues with au catheter Medication Compliance: Yes Mental Status Exam Mental Status Exam Patient Orientation: Person, Place, Time and Situation Level of Consciousness: Lethargic Patient Behavior: Fatigued Mood Description: Flat Affect Description: Blunted Patient Cognition Impaired: No Ability to Follow Directions: Good Speech Pattern: Impoverished and Soft-Spoken Hallucinations: None Delusions: Not Present Thought Process: Linear Thought Content: positive for Poverty of Content Depressive Symptoms: Sleeping More Than Usual, Loss of Int. in Activity and Increased Fatigue Abnormal Motor Activity Signs and Symptoms: Psychomotor Retardation Judgement: Fair Judgement and Insight: delayed responses Diagnostics Vital Signs (24Hr): Vital Signs - 24 hr 08/11/24 20:00 Temperature 97.3 F Pulse Rate 75 Respiratory Rate 18 Blood Pressure 142/61 H Pulse Oximetry 95 Oxygen Delivery Method Room Air BMI result Body Mass Index 27.4 Labs 08/08/24 07:25 Labs: Laboratory Results - last 48 hr 08/11/24 08:43 Absolute Neuts (auto) 3.2 Medications Medications Current Medications Acetaminophen (Acetaminophen 325 Mg Tablet) 650 mg PO Q6H PRN PRN Reason: Headache/Pain, Scale 1-10 Al Hydroxide/Mg Hydroxide (Magnesium Hydrox/Alum Hydrox 30 Ml Oral.Susp) 30 ml PO Q6H PRN PRN Reason: Heartburn/Nausea Clotrimazole (Clotrimazole 1 % Cream 15 Gm Tube) 1 appl TOPICAL BID [facility]; Protocol Stop: 08/23/24 10:29 Last Admin: 08/11/24 20:30 Dose: 1 appl Clozapine (Clozapine 100 Mg Tablet) 100 mg PO BEDTIME [facility] Last Admin: 08/11/24 20:31 Dose: 100 mg Divalproex Sodium (Divalproex Sodium 250 Mg Tablet.Dr) 125 mg PO BID [facility] Last Admin: 08/11/24 20:31 Dose: 125 mg Finasteride (Finasteride 5 Mg Tablet) 5 mg PO DAILY [facility] Last Admin: 08/11/24 09:00 Dose: 5 mg Gabapentin (Gabapentin 100 Mg Capsule) 100 mg PO BID [facility] Last Admin: 08/11/24 20:32 Dose: 100 mg Lorazepam (Lorazepam 1 Mg Tablet) 1 mg PO TID [facility] Last Admin: 08/11/24 20:32 Dose: 1 mg Magnesium Hydroxide (Milk Of Magnesia 30 Ml Oral.Susp) 30 ml PO DAILY PRN PRN Reason: Constipation Olanzapine (Olanzapine Odt 10 Mg Tab.Rapdis) 5 mg TRANSLINGU BID PRN PRN Reason: agitation Sodium Chloride (0.9 % Sodium Chloride Flush 10 Ml Syringe) 5 ml IVFLUSH QSHIFT [facility] Last Admin: 08/12/24 00:30 Dose: 5 ml Tamsulosin HCl (Tamsulosin Hcl 0.4 Mg Capsule) 0.8 mg PO BEDTIME [facility] Last Admin: 08/07/24 20:36 Dose: 0.8 mg Allergies Allergies Allergy/AdvReac Type Severity Reaction Status Date / Time No Known Allergies [NKA] Allergy Unknown NONE Verified 06/19/24 20:43 Assessment & Plan Assessment & Plan (1) Schizoaffective disorder: Status: Acute Code(s): F25.9 - Schizoaffective disorder, unspecified (2) Catatonia: Status: Acute Code(s): F06.1 - Catatonic disorder due to known physiological condition (3) Urinary retention with incomplete bladder emptying: Status: Acute Code(s): R33.9 - Retention of urine, unspecified (4) Intertriginous dermatitis associated with moisture: Status: Acute Code(s): L30.4 - Erythema intertrigo Plan DTI sacrum/Intertriginous dermatitis Off Load Pressure with Q2 hr turns and use of pillows. Apply with foam dressing to aid in off loading and protection from friction. Change every 3 days and PRN. Clotrimazole 1% to sacral rash BID for two weeks. Psychiatric assessment and plan Medical note and plan read and appreciated patient currently remains with Au catheter he is on tamsulosin and finasteride. Patient has worsening tremor did miss a dose of clozapine last night question withdrawal tremor unclear rigidity. Tremor may have also been precipitated by Depakote being restarted Clozapine 25 now 100 at bedtime Neuro consult question worsening tremor unusual rigidity patient not on traditional antipsychotics. Namenda in case any interaction with ketamine Monitor response to lowering Depakote and discontinuing Namenda. Patient denies any current auditory hallucinations no gross psychosis limited catatonia symptoms noted Depression with decompensation of schizophrenia, catatonia and agitation Status post multiple incisions of ketamine, last on 08/01. Now scheduled Twice weekly in PACU, last 08/08/2024 Continue Clozaril Doing better, awake, communicating, eating Treatment per psych team. Urinary retention/BPH Flomax increased to 0.8mg, Finesteride Au placed (08/05/2024) catheter to stay in 2 weeks and then removed for voiding trial. Can be done at rehab facility if he is discharged. Switch from overnight drainage bag to catheter cap to be used during the day to encourage mobilization. Aspiration PNA Requiring ICU and intubation Received course of ampicillin Dysphagia Tolerating diet Aspiration precautions 08/10/2024: Add gabapentin 100 mg 2 times per day for arm pain which might be no related as patient reports from past experience. Neurology consult pending. Otherwise no changes 08/11/25: no med changes, no Neuro consult yet 08/12/24 cont clozaril lower depakopte ketamine infusions have shown clear improvement consider mirapex/sinemet Reason for continued inpatient stay Substantial Risk for: inability to function, rapid decompensation and med/psych decompensation Time Spent With Patient Time: Total time managing care of this patient today ____ minutes.
--- NOTE | 2024-08-12 10:16 | PM.NEUROCN ---
History of Present Illness Data of Consult Service Date: 08/12/24 Primary Care Provider: Unknown Physician HPI Reason for consult: Tremor 59 years old man with underlying diagnosis of schizoaffective disorder recently suffered from catatonia type of symptomatology and was treated with multiple modes of treatment including ketamine. I was asked to see him for tremor and rigidity. There was no evidence of any seizure-like episode and previous EEG was negative. He has been maintained on clozapine and small dose of as needed olanzapine. Review of Systems Review of Systems: No recent cold or flu-like illness or fever PMFSH Past Medical History Medical History (Updated 08/12/24 @ 10:20 by Kae Anguiano MD) Tardive dyskinesia Hospital discharge follow-up Mild sleep apnea Nocturnal hypoxia Routine medical exam Joint inflammation of right hand and wrist Status post fall Adult general medical exam Screening for colon cancer Screening for prostate cancer Cough BPH (benign prostatic hyperplasia) Family History Family History Mother Cancer Father Kidney agenesis Surgical History Surgical History History of colonoscopy (~06/15/21) History of tooth extraction History of root canal procedure Social History Social History Household Members: Family Housing: Apartment Are you a primary customer care professional to a significant other at home: No Do you presently have visiting nurse or other home services: Yes Unable to assess alcohol history related to: Unable to respond Alcohol intake: former Comment: Pt on 1:1 monitoring. Patient Tobacco Use Status: Never used Tobacco e-Cigarette/Vaping Use: Never Used Second Hand Smoke Exposure: No Currently Displaying Signs/Symptoms of Drug Intoxication Withdrawal: No Have you been hit, kicked, punched, or otherwise hurt by someone within the past year? If so, by whom?: No Do you feel safe in your current relationship?: No Current Relationship Is there a partner from a previous relationship who is making you feel unsafe now?: No Are you made to feel afraid or neglected: No Advance Directives: No Advance Directives Information Provided: Yes Do you have thoughts of harming others: None Do you have a plan to hurt others: No Plan Recently lost weight without trying: Yes How much weight loss: 14-23 pounds Eating poorly because of decreased appetite: Yes Nutrition screen score: 5 Nutrition Risks: On aspiration precautions Poor oral hygiene: No service: No Current occupational status: employed Sexual orientation: Straight/Heterosexual Cognitive needs: No Hearing needs: No Vision needs: No Meds Allergies Allergy/AdvReac Type Severity Reaction Status Date / Time No Known Allergies [NKA] Allergy Unknown NONE Verified 06/19/24 20:43 Active Medications: Current Medications Acetaminophen (Acetaminophen 325 Mg Tablet) 650 mg PO Q6H PRN PRN Reason: Headache/Pain, Scale 1-10 Al Hydroxide/Mg Hydroxide (Magnesium Hydrox/Alum Hydrox 30 Ml Oral.Susp) 30 ml PO Q6H PRN PRN Reason: Heartburn/Nausea Clotrimazole (Clotrimazole 1 % Cream 15 Gm Tube) 1 appl TOPICAL BID [facility]; Protocol Stop: 08/23/24 10:29 Last Admin: 08/11/24 20:30 Dose: 1 appl Clozapine (Clozapine 100 Mg Tablet) 100 mg PO BEDTIME [facility] Last Admin: 08/11/24 20:31 Dose: 100 mg Divalproex Sodium (Divalproex Sodium 250 Mg Tablet.Dr) 125 mg PO BID [facility] Last Admin: 08/11/24 20:31 Dose: 125 mg Finasteride (Finasteride 5 Mg Tablet) 5 mg PO DAILY [facility] Last Admin: 08/11/24 09:00 Dose: 5 mg Gabapentin (Gabapentin 100 Mg Capsule) 100 mg PO BID [facility] Last Admin: 08/11/24 20:32 Dose: 100 mg Lorazepam (Lorazepam 1 Mg Tablet) 1 mg PO TID [facility] Last Admin: 08/11/24 20:32 Dose: 1 mg Magnesium Hydroxide (Milk Of Magnesia 30 Ml Oral.Susp) 30 ml PO DAILY PRN PRN Reason: Constipation Olanzapine (Olanzapine Odt 10 Mg Tab.Rapdis) 5 mg TRANSLINGU BID PRN PRN Reason: agitation Sodium Chloride (0.9 % Sodium Chloride Flush 10 Ml Syringe) 5 ml IVFLUSH QSHIFT [facility] Last Admin: 08/12/24 00:30 Dose: 5 ml Tamsulosin HCl (Tamsulosin Hcl 0.4 Mg Capsule) 0.8 mg PO BEDTIME [facility] Last Admin: 08/07/24 20:36 Dose: 0.8 mg Physical Exam Vital Signs: Vital Signs: Last Vital Signs Temp 97.3 F 08/11/24 20:00 Pulse 75 08/11/24 20:00 Resp 18 08/11/24 20:00 BP 142/61 H 08/11/24 20:00 Pulse Ox 95 08/11/24 20:00 O2 Del Method Room Air 08/11/24 20:00 BMI result Body Mass Index 27.4 Neuro: Other: He is drowsy but was able to open eyes make an eye contact in answer simple questions and follow simple commands. Spontaneity and fluency of speech were somewhat diminished. Comprehension was intact. There was no gaze deviation. Extraocular muscles were intact. Visual chandra are full. Facial expressions were somewhat diminished. Moderate cogwheeling rigidity was noted in right upper and lower extremity with mild right hand and arm and foot resting tremor. Deep tendon reflexes were trace to absent with flexor plantars. Speech was okay. Results Labs 08/08/24 07:25 Labs: MRI of brain few weeks ago did not reveal any significant pathology impacting his brain. Left sphenoid sinus pathology was noted. Assessment and Plan (1) Parkinsonism: Qualifiers: Parkinsonism type: secondary Parkinsonism Secondary Parkinsonism type: unspecified secondary Qualified Code(s): G21.9 - Secondary parkinsonism, unspecified Status: Acute 59 years old man with moderate parkinsonism especially impacting right side with bradykinesia, rigidity, and tremor. I recommend trying carbidopa levodopa 25/100 3 times a day at 07:00, 11:00, and 15:00. Conventional neuroleptics should be avoided as much as possible. Small dose of benztropine 0.5 mg a day we also help. Procedures Date of Service Date of Service: 08/12/24
[2024-08-12] MEDS: Clotrimazole 1 % Cream 15 GM TUBE 1 APPL TOPICAL ×2 (10:30→20:36)
[2024-08-12 20:00] VITALS: BP 118/66; PULSE 89; RESP 16; TEMP 37.4; O2SAT 95
[2024-08-13] VITALS (10 sets, daily range): BP systolic 94–123; BP diastolic 52–68; PULSE 91–101; RESP 18–22; TEMP 37.1–37.6; O2SAT 92–95
[2024-08-13] MEDS: Ketamine HCl 500 MG in 0.9 % Sodium Chloride 250 ML 21.47 MG IV (07:50)
[2024-08-13] MEDS: Clotrimazole 1 % Cream 15 GM TUBE 1 APPL TOPICAL ×2 (10:27→20:58)
[2024-08-13] MEDS: 0.9 % Sodium Chloride Flush 10 ML SYRINGE 5 ML IVFLUSH ×3 (10:28→23:29)
--- NOTE | 2024-08-13 14:43 | HO.PM.IMPN ---
Subjective Subjective Date of Service: 08/13/24 Interval History: Patient is seen for reports of increased secretions. Difficulty clearing and cough. Patient was admitted to the psych unit on 06/21/2024 for worsening catatonia. During the scheduled ECT treatment his saturations dropped and there was a concern for pneumonitis. Patient required intubation on 07/17 and he was successfully extubated on 07/18. Now he is back on [facility] for continued care. He is more alert, interactive with staff. He is able to ambulate with a walker. He has a low-grade temp. No recent labs. No evidence of increased WOB, no cough, drinking with a straw clear liquids with no evidence of aspiration. He denies shortness of breath or chest pain. Review of Systems Denies any shortness of breath, chest pain, dizziness, lightheadedness, abdominal pain or discomfort, nausea vomiting or diarrhea Physical Exam Vital Signs: Vital Signs: Last Vital Signs Temp 99.7 F 08/13/24 09:50 Pulse 91 08/13/24 09:50 Resp 20 08/13/24 09:50 BP 123/67 08/13/24 09:50 Pulse Ox 95 08/13/24 09:50 O2 Del Method Room Air 08/13/24 09:50 BMI result Body Mass Index 27.4 CONST: Alert and oriented, in NAD. Well nourished HEENT: Normocephalic, atraumatic, MMM, Eyes clear, Neck supple RESP: Lungs clear, RRR even and regular HEART:,RRR, S1, S2. No murmur, no edema GI:Abdomen Soft NT, ND. + BS times four :Deferred SKIN: Warm dry and intact, no visible lesions or rashes NEURO:CN II-XII Intact bilaterally, Sensation intact. Speech clear PSYCH: Normal affect Objective Data Active Medications Acetaminophen (Acetaminophen 325 Mg Tablet) 650 mg PO Q6H PRN PRN Reason: Headache/Pain, Scale 1-10 Al Hydroxide/Mg Hydroxide (Magnesium Hydrox/Alum Hydrox 30 Ml Oral.Susp) 30 ml PO Q6H PRN PRN Reason: Heartburn/Nausea Clotrimazole (Clotrimazole 1 % Cream 15 Gm Tube) 1 appl TOPICAL BID [facility]; Protocol Stop: 08/23/24 10:29 Last Admin: 08/13/24 10:27 Dose: 1 appl Documented By: IAN Clozapine (Clozapine 100 Mg Tablet) 100 mg PO DAILY@1800 [facility] Divalproex Sodium (Divalproex Sodium 250 Mg Tablet.Dr) 125 mg PO BID [facility] Last Admin: 08/13/24 10:25 Dose: 125 mg Documented By: IAN Finasteride (Finasteride 5 Mg Tablet) 5 mg PO DAILY [facility] Last Admin: 08/13/24 10:27 Dose: 5 mg Documented By: IAN Lorazepam (Lorazepam 0.5 Mg Tablet) 0.5 mg PO TID [facility] Magnesium Hydroxide (Milk Of Magnesia 30 Ml Oral.Susp) 30 ml PO DAILY PRN PRN Reason: Constipation Olanzapine (Olanzapine Odt 10 Mg Tab.Rapdis) 5 mg TRANSLINGU BID PRN PRN Reason: agitation Sodium Chloride (0.9 % Sodium Chloride Flush 10 Ml Syringe) 5 ml IVFLUSH QSHIFT [facility] Last Admin: 08/13/24 10:28 Dose: 5 ml Documented By: IAN Tamsulosin HCl (Tamsulosin Hcl 0.4 Mg Capsule) 0.8 mg PO BEDTIME [facility] Last Admin: 08/07/24 20:36 Dose: 0.8 mg Documented By: ALIC Labs 08/08/24 07:25 Assessment and Plan (1) Pulmonary aspiration: Status: Acute Plan Status post aspiration pneumonia/acute hypoxic respiratory failure/upper airway congestion He recently required ICU and intubation after a recent aspiration. Completed course of ampicillin Continues with upper airway congestion Will check CBC, BMP Recommend Acapella device 4 times a day. Chest PT Ambulate three times daily. HOB elevated 30 degrees, OOB for meals. Duo nebs q.i.d. p.r.n. Continue to monitor an update medical provider with any changes Quality Stroke Does the patient have a stroke diagnosis?: No VTE Prior VTE?: No VTE Risk Level:: Medical - moderate - high VTE Device Contraindication: Treatment Not Indicated VTE Drug Contraindication: Treatment Not Indicated
--- NOTE | 2024-08-13 15:05 | HO.PSYCHPN ---
Subjective Subjective Date of Service: 08/13/24 Reason For Visit: catatonia Subjective Notes: Conditional Voluntary Healthcare Proxy: Yes Interim History: Pt seen in f/u mood improved pt has been more active social pt had ketamine infusion earlier in the day . Pt au was withdrawn Mental Status Exam Mental Status Exam Patient Appearance: Well Grooomed Patient Orientation: Person, Place, Time and Situation Patient Behavior: Fatigued Mood Description: Calm and Relaxed Affect Description: Blunted Patient Cognition Impaired: No Ability to Follow Directions: Good Speech Pattern: Impoverished and Soft-Spoken Hallucinations: None Delusions: Not Present Thought Process: Linear Thought Content: positive for Poverty of Content Depressive Symptoms: Sleeping More Than Usual, Loss of Int. in Activity and Increased Fatigue Abnormal Motor Activity Signs and Symptoms: Psychomotor Retardation Judgement: Fair Judgement and Insight: delayed responses denies prieto diaz Diagnostics Vital Signs (24Hr): Vital Signs - 24 hr 08/12/24 20:00 08/13/24 07:50 08/13/24 08:05 Temperature 99.4 F 98.9 F Pulse Rate 89 95 94 Respiratory Rate 16 18 20 Blood Pressure 118/66 119/68 116/63 Pulse Oximetry 95 92 93 Oxygen Delivery Method Room Air Room Air Room Air 08/13/24 08:20 08/13/24 08:35 08/13/24 08:50 Temperature 98.8 F Pulse Rate 93 91 92 Respiratory Rate 20 20 20 Blood Pressure 116/61 103/54 L 116/52 L Pulse Oximetry 93 94 93 Oxygen Delivery Method Room Air Room Air Room Air 08/13/24 09:05 08/13/24 09:20 08/13/24 09:35 Temperature Pulse Rate 92 92 93 Respiratory Rate 20 22 H 20 Blood Pressure 111/60 94/64 121/63 Pulse Oximetry 93 93 94 Oxygen Delivery Method Room Air Room Air Room Air 08/13/24 09:50 Temperature 99.7 F Pulse Rate 91 Respiratory Rate 20 Blood Pressure 123/67 Pulse Oximetry 95 Oxygen Delivery Method Room Air BMI result Body Mass Index 27.4 Labs 08/08/24 07:25 Medications Medications Current Medications Acetaminophen (Acetaminophen 325 Mg Tablet) 650 mg PO Q6H PRN PRN Reason: Headache/Pain, Scale 1-10 Al Hydroxide/Mg Hydroxide (Magnesium Hydrox/Alum Hydrox 30 Ml Oral.Susp) 30 ml PO Q6H PRN PRN Reason: Heartburn/Nausea Albuterol/Ipratropium (Albuterol/Iprat 2.5/0.5mg 3 Ml Ampul.Neb) 3 ml INHALE QID PRN PRN Reason: Congestion Clotrimazole (Clotrimazole 1 % Cream 15 Gm Tube) 1 appl TOPICAL BID [facility]; Protocol Stop: 08/23/24 10:29 Last Admin: 08/13/24 10:27 Dose: 1 appl Clozapine (Clozapine 100 Mg Tablet) 100 mg PO DAILY@1800 [facility] Divalproex Sodium (Divalproex Sodium 250 Mg Tablet.Dr) 125 mg PO BID [facility] Last Admin: 08/13/24 10:25 Dose: 125 mg Finasteride (Finasteride 5 Mg Tablet) 5 mg PO DAILY [facility] Last Admin: 08/13/24 10:27 Dose: 5 mg Lorazepam (Lorazepam 0.5 Mg Tablet) 0.5 mg PO TID [facility] Last Admin: 08/13/24 15:00 Dose: 0.5 mg Magnesium Hydroxide (Milk Of Magnesia 30 Ml Oral.Susp) 30 ml PO DAILY PRN PRN Reason: Constipation Olanzapine (Olanzapine Odt 10 Mg Tab.Rapdis) 5 mg TRANSLINGU BID PRN PRN Reason: agitation Sodium Chloride (0.9 % Sodium Chloride Flush 10 Ml Syringe) 5 ml IVFLUSH QSHIFT [facility] Last Admin: 08/13/24 10:28 Dose: 5 ml Tamsulosin HCl (Tamsulosin Hcl 0.4 Mg Capsule) 0.8 mg PO BEDTIME [facility] Last Admin: 08/07/24 20:36 Dose: 0.8 mg Allergies Allergies Allergy/AdvReac Type Severity Reaction Status Date / Time No Known Allergies [NKA] Allergy Unknown NONE Verified 06/19/24 20:43 Assessment & Plan Assessment & Plan (1) Schizoaffective disorder: Status: Acute Code(s): F25.9 - Schizoaffective disorder, unspecified (2) Catatonia: Status: Acute Code(s): F06.1 - Catatonic disorder due to known physiological condition (3) Urinary retention with incomplete bladder emptying: Status: Acute Code(s): R33.9 - Retention of urine, unspecified (4) Intertriginous dermatitis associated with moisture: Status: Acute Code(s): L30.4 - Erythema intertrigo Plan Status post aspiration pneumonia/acute hypoxic respiratory failure/upper airway congestion He recently required ICU and intubation after a recent aspiration. Completed course of ampicillin Continues with upper airway congestion Will check CBC, BMP Recommend Acapella device 4 times a day Ambulate three times daily. HOB elevated 30 degrees, OOB for meals. Duo nebs q.i.d. p.r.n. Continue to monitor an update medical provider with any changes 08/13/24 Cont clozapine 100 hs lower lorazepam 0.5 tid consider dopamine per neurology trial cont ketamine ck ua c and s encourage ambulation isabelle tao to follow Reason for continued inpatient stay Substantial Risk for: inability to function, rapid decompensation and med/psych decompensation Time Spent With Patient Time: Total time managing care of this patient today ____ minutes.
--- NOTE | 2024-08-13 15:19 | PM.EVENT ---
Event Note Date of Service: 08/13/24 Event Note: Discussed case with respiratory therapy who consulted with Dr. Trejo. Patient had a sleep study in April and does not have sleep apnea. Time Spent With Patient Time: Total time managing care of this patient today ____ minutes.
--- NOTE | 2024-08-13 15:54 | PC.RT ---
Pt awake and coop, MANUFACTURING ASSISTANT at bedside. Ls dim bilat, noted loose phlegm in back of throat. Pt able to utilize the aerobika with assist x 10 breaths on max setting. Loose npc upon request. Device left with MANUFACTURING ASSISTANT in bag with pts room # and name.
[2024-08-13] MEDS: OLANZapine ODT 10 MG TAB.RAPDIS 5 MG TRANSLINGU (20:58)
[2024-08-14 02:12] LABS: Appearance Urine Clear; Glucose Urine UA Negative (Negative); PH 6.5 (5.0-9.0); Specific Gravity - Urine <= 1.005 (1.005-1.025); UMIC TRIGGER UACC YES
[2024-08-14 02:21] LABS: UACC Culture Trigger YES
[2024-08-14 07:24] LABS: Anion Gap 14 (12-20); Blood Urea Nitrogen 19 mg/dL (9-16); Calcium 8.7 mg/dL (8.4-10.2); Carbon Dioxide 25 mmol/L (22-29); Chloride 105 mmol/L (96-108); Creatinine Clr Calc Pharmacy 61.5; Estimated Glomerular Filt Rate 58; Potassium 4.0 mmol/L (3.3-5.1); Sodium 140 mmol/L (135-145)
[2024-08-14 07:34] LABS: Hematocrit 33.2 % (42.0-52.0); Hemoglobin 10.8 g/dl (14.0-18.0); Mean Corpuscular HGB Conc 32.5 g/dl (31.0-36.0); Mean Corpuscular Hemoglobin 28.3 pg (27.0-33.0); Mean Corpuscular Volume 86.9 fL (80.0-98.0); NRBC Abs Auto 0.000 X10*3/uL (0.0-0.012); NRBC Pct Auto 0.0 /100WBC (0.0-0.2); Red Blood Count 3.82 X10*6/uL (4.60-5.80); White Blood Count 12.7 X10*3/uL (4.8-10.8)
[2024-08-14 08:00] VITALS: BP 112/56; PULSE 100; RESP 16; TEMP 36.8; O2SAT 95
[2024-08-14 08:10] LABS: Platelet Count 122 X10*3/uL (160-400)
[2024-08-14] MEDS: 0.9 % Sodium Chloride Flush 10 ML SYRINGE 5 ML IVFLUSH ×2 (13:51→16:54)
[2024-08-14] MEDS: Clotrimazole 1 % Cream 15 GM TUBE 1 APPL TOPICAL ×2 (13:52→21:05)
--- NOTE | 2024-08-14 17:01 | PC.NURSE ---
Due to his increased congestion and sleepiness is having a STAT CXR 2V
[2024-08-14] MEDS: OLANZapine ODT 10 MG TAB.RAPDIS 5 MG TRANSLINGU (17:36)
--- NOTE | 2024-08-14 17:45 | PC.NURSE ---
complaining he is feeling very nervous and doesn't feel like his treatment is helpful
[2024-08-14 20:00] VITALS: BP 113/54; PULSE 90; RESP 16; TEMP 36.9; O2SAT 97
--- NOTE | 2024-08-14 20:55 | HO.PSYCHPN ---
Subjective Subjective Date of Service: 08/14/24 Reason For Visit: catatonia Interim History: Pt has been more lethargic today ? inc wbc pos ua wbc has been able to urinate spontaneously more fatigued Medication Compliance: Yes Mental Status Exam Mental Status Exam Narrative: pt in hosp garb , flat affect less spontaeous speech denies aud diaz no si or hi Diagnostics Vital Signs (24Hr): Vital Signs - 24 hr 08/14/24 08:00 Temperature 98.2 F Pulse Rate 100 Respiratory Rate 16 Blood Pressure 112/56 L Pulse Oximetry 95 Oxygen Delivery Method Room Air BMI result Body Mass Index 27.4 Labs 08/14/24 06:57 08/14/24 06:57 Labs: Laboratory Results - last 48 hr 08/14/24 08/14/24 01:55 06:57 WBC 12.7 H RBC 3.82 L Hgb 10.8 L Hct 33.2 L MCV 86.9 MCH 28.3 MCHC 32.5 RDW 13.9 Plt Count 122 L D MPV 11.3 Absolute Nucleated RBC 0.000 Nucleated RBC % (auto) 0.0 Sodium 140 Potassium 4.0 Chloride 105 Carbon Dioxide 25 Anion Gap 14 BUN 19 H Creatinine 1.26 Estim Creat Clear Calc 61.5 Estimated GFR 58 Random Glucose 115 Calcium 8.7 Urine Color Yellow Urine Appearance Clear Urine pH 6.5 Ur Specific [place] <= 1.005 Urine Protein Negative Urine Glucose (UA) Negative Urine Ketones Negative Urine Blood Small (1+) H Urine Nitrite Negative Ur Leukocyte Esterase Large (3+) H Urine RBC 0-2 Urine WBC >50 H Ur Squamous Epith Cells 0-2 Urine Bacteria None Seen Hyaline Casts 0-2 Medications Medications Current Medications Acetaminophen (Acetaminophen 325 Mg Tablet) 650 mg PO Q6H PRN PRN Reason: Headache/Pain, Scale 1-10 Al Hydroxide/Mg Hydroxide (Magnesium Hydrox/Alum Hydrox 30 Ml Oral.Susp) 30 ml PO Q6H PRN PRN Reason: Heartburn/Nausea Albuterol/Ipratropium (Albuterol/Iprat 2.5/0.5mg 3 Ml Ampul.Neb) 3 ml INHALE QID PRN PRN Reason: Congestion Clotrimazole (Clotrimazole 1 % Cream 15 Gm Tube) 1 appl TOPICAL BID [facility]; Protocol Stop: 08/23/24 10:29 Last Admin: 08/14/24 13:52 Dose: 1 appl Clozapine (Clozapine 100 Mg Tablet) 100 mg PO DAILY@1800 [facility] Last Admin: 08/14/24 17:36 Dose: 100 mg Divalproex Sodium (Divalproex Sodium 250 Mg Tablet.Dr) 125 mg PO BID [facility] Last Admin: 08/14/24 19:37 Dose: 125 mg Finasteride (Finasteride 5 Mg Tablet) 5 mg PO DAILY [facility] Last Admin: 08/14/24 08:48 Dose: 5 mg Lorazepam (Lorazepam 0.5 Mg Tablet) 0.5 mg PO TID [facility] Last Admin: 08/14/24 19:37 Dose: 0.5 mg Magnesium Hydroxide (Milk Of Magnesia 30 Ml Oral.Susp) 30 ml PO DAILY PRN PRN Reason: Constipation Olanzapine (Olanzapine Odt 10 Mg Tab.Rapdis) 5 mg TRANSLINGU BID PRN PRN Reason: agitation Last Admin: 08/14/24 17:36 Dose: 5 mg Sodium Chloride (0.9 % Sodium Chloride Flush 10 Ml Syringe) 5 ml IVFLUSH QSHIFT [facility] Last Admin: 08/14/24 16:54 Dose: 5 ml Tamsulosin HCl (Tamsulosin Hcl 0.4 Mg Capsule) 0.8 mg PO BEDTIME [facility] Last Admin: 08/14/24 19:40 Dose: 0.8 mg Allergies Allergies Allergy/AdvReac Type Severity Reaction Status Date / Time No Known Allergies [NKA] Allergy Unknown NONE Verified 06/19/24 20:43 Assessment & Plan Assessment & Plan (1) Schizoaffective disorder: Status: Acute Code(s): F25.9 - Schizoaffective disorder, unspecified (2) Catatonia: Status: Acute Code(s): F06.1 - Catatonic disorder due to known physiological condition (3) Urinary retention with incomplete bladder emptying: Status: Acute Code(s): R33.9 - Retention of urine, unspecified (4) Intertriginous dermatitis associated with moisture: Status: Acute Code(s): L30.4 - Erythema intertrigo Plan Status post aspiration pneumonia/acute hypoxic respiratory failure/upper airway congestion He recently required ICU and intubation after a recent aspiration. Completed course of ampicillin Continues with upper airway congestion Will check CBC, BMP Recommend Acapella device 4 times a day Ambulate three times daily. HOB elevated 30 degrees, OOB for meals. Duo nebs q.i.d. p.r.n. Continue to monitor an update medical provider with any changes 08/13/24 Cont clozapine 100 hs lower lorazepam 0.5 tid consider dopamine per neurology trial cont ketamine ck ua c and s encourage ambulation isabelle tao to follow 08/14/24 hold ketamine tomm pt lethargic cont clozapine lower dose lorazepam ck cxr monitor 02 sats Reason for continued inpatient stay Substantial Risk for: inability to function, rapid decompensation and med/psych decompensation Time Spent With Patient Time: Total time managing care of this patient today ____ minutes.
[2024-08-15] MEDS: 0.9 % Sodium Chloride Flush 10 ML SYRINGE 5 ML IVFLUSH ×2 (01:35→08:46)
[2024-08-15 08:00] VITALS: BP 89/45; PULSE 80; RESP 14; TEMP 36.8
[2024-08-15] MEDS: Clotrimazole 1 % Cream 15 GM TUBE 1 APPL TOPICAL ×2 (09:56→20:24)
[2024-08-15 10:38] VITALS: BP 103/55
--- NOTE | 2024-08-15 10:51 | HO.PM.IMPN ---
Subjective Subjective Date of Service: 08/15/24 Interval History: 59-year-old male with PMH of schizoaffective disorder, who lives alone in the community with services. Patient was admitted to the psych unit on 06/21/2024 for worsening catatonia. During the scheduled ECT treatment his saturations dropped and there was a concern for pneumonitis. Patient required intubation on 07/17 and he was successfully extubated on 07/18. He is now on the [facility] psych floor for continued treatment. Patient is seen for reports of increased lethargy and abnormal UA. Patient had a chest x-ray which did not demonstrate any pneumonia. Growing Gram-negative rods culture pending. Patient reports he does not feel well he is vague and nonspecific. Difficulty clearing, respiratory device at bedside. He is sleeping, arousable. Per nursing he was up at the side of his bed eating his breakfast this morning. He is afebrile. WBC 12.7. H and H 10.8 and 33.2. No evidence of increased WOB, no cough. He denies shortness of breath or chest pain. Review of Systems Denies any shortness of breath, chest pain, dizziness, lightheadedness, abdominal pain or discomfort, nausea vomiting or diarrhea Physical Exam Vital Signs: Vital Signs: Last Vital Signs Temp 98.2 F 08/15/24 08:00 Pulse 80 08/15/24 08:00 Resp 14 08/15/24 08:00 BP 103/55 L 08/15/24 10:38 Pulse Ox 97 08/14/24 20:00 O2 Del Method Room Air 08/15/24 08:00 BMI result Body Mass Index 27.4 CONST: Alert and oriented, in NAD. Well nourished. Sleepy on exam easily arousable HEENT: Normocephalic, atraumatic, MMM RESP: Lungs clear, RRR even and regular HEART:,RRR, S1, S2. No murmur, no edema GI:Abdomen Soft NT, ND. + BS times four :Deferred SKIN: Warm dry and intact, no visible lesions or rashes NEURO:CN II-XII Intact bilaterally, Sensation intact. Speech clear PSYCH: Normal affect Objective Data Active Medications Acetaminophen (Acetaminophen 325 Mg Tablet) 650 mg PO Q6H PRN PRN Reason: Headache/Pain, Scale 1-10 Al Hydroxide/Mg Hydroxide (Magnesium Hydrox/Alum Hydrox 30 Ml Oral.Susp) 30 ml PO Q6H PRN PRN Reason: Heartburn/Nausea Albuterol/Ipratropium (Albuterol/Iprat 2.5/0.5mg 3 Ml Ampul.Neb) 3 ml INHALE QID PRN PRN Reason: Congestion Clotrimazole (Clotrimazole 1 % Cream 15 Gm Tube) 1 appl TOPICAL BID [facility]; Protocol Stop: 08/23/24 10:29 Last Admin: 08/15/24 09:56 Dose: 1 appl Documented By: KANE Clozapine (Clozapine 100 Mg Tablet) 100 mg PO DAILY@1800 [facility] Last Admin: 08/14/24 17:36 Dose: 100 mg Documented By: KANE Divalproex Sodium (Divalproex Sodium 250 Mg Tablet.Dr) 125 mg PO BID [facility] Last Admin: 08/15/24 08:47 Dose: 125 mg Documented By: KANE Finasteride (Finasteride 5 Mg Tablet) 5 mg PO DAILY [facility] Last Admin: 08/15/24 08:47 Dose: 5 mg Documented By: KANE Sodium Chloride (Ns) 1,000 mls @ 100 mls/hr IVCONT .Q10H [facility] Lorazepam (Lorazepam 0.5 Mg Tablet) 0.5 mg PO TID [facility] Last Admin: 08/15/24 08:47 Dose: 0.5 mg Documented By: KANE Magnesium Hydroxide (Milk Of Magnesia 30 Ml Oral.Susp) 30 ml PO DAILY PRN PRN Reason: Constipation Olanzapine (Olanzapine Odt 10 Mg Tab.Rapdis) 5 mg TRANSLINGU BID PRN PRN Reason: agitation Last Admin: 08/14/24 17:36 Dose: 5 mg Documented By: KANE Sodium Chloride (0.9 % Sodium Chloride Flush 10 Ml Syringe) 5 ml IVFLUSH QSHIFT [facility] Last Admin: 08/15/24 08:46 Dose: 5 ml Documented By: KANE Tamsulosin HCl (Tamsulosin Hcl 0.4 Mg Capsule) 0.8 mg PO BEDTIME [facility] Last Admin: 08/14/24 19:40 Dose: 0.8 mg Documented By: FAZAL Labs 08/14/24 06:57 08/14/24 06:57 Imaging Chest x-ray: My impression: Two views of the chest. COMPARISON: XR chest dated 07/26/24 at 05:04 EDT FINDINGS: Normal heart and mediastinal contours. No consolidation. Stable calcified granuloma in the left lung base. No pleural effusion or pneumothorax. Small flowing marginal osteophytes throughout the thoracic spine. No fracture identified. IMPRESSION: 1. No consolidation. Microbiology Microbiology Results: Microbiology 08/14/24 Unknown Urine Culture - Preliminary Urine clean catch - Clean Catch Midstream Gram negative michael Assessment and Plan (1) UTI (urinary tract infection): Status: Acute Plan Leukocytosis/abnormal urinalysis/lethargy WBC 12.7 UA with small amount of blood, large leukocyte esterase, greater than 50 WBC. UA growing greater than [id number] gram-negative rods sensitivities pending We will start ceftriaxone 1 g IV for 5 days empirically pending culture 1 L normal saline Repeat labs in a.m. Urinary retention Patient bladder scan 690 cc, voided 320 declined follow-up bladder scan This morning he was bladder scanned as exam for 193 Continue to monitor bladder scans straight catheterization greater than 350 if no void May need to have catheter reinserted and follow up with Urology Continue Flomax at 0.8 and finasteride 5 mg Status post aspiration pneumonia/acute hypoxic respiratory failure/upper airway congestion He recently required ICU and intubation after a recent aspiration. Completed course of ampicillin Continues with upper airway congestion, Device at bedside Recommend Acapella device 4 times a day. Chest PT Ambulate three times daily. HOB elevated 30 degrees, OOB for meals. Duo nebs q.i.d. p.r.n. Chest x-ray done with no consolidation Continue to monitor an update medical provider with any changes Quality Stroke Does the patient have a stroke diagnosis?: No VTE Prior VTE?: No VTE Risk Level:: Medical - moderate - high VTE Device Contraindication: Treatment Not Indicated VTE Drug Contraindication: Treatment Not Indicated
[2024-08-15 12:49] VITALS: BMI 28.2
--- NOTE | 2024-08-15 14:59 | PM.EVENT ---
Event Note Date of Service: 08/15/24 Event Note: Per nursing IV infiltrated, patient received about 300 mL of solution blood pressure improved to 120/64. Pulse of 86, he is afebrile. Hemodynamically stable, we will DC IV encouraged fluids. IV ceftriaxone change to cefuroxime. He did receive 1 dose of IV ceftriaxone. Nursing to notify hospitalist seen with any changes. Time Spent With Patient Time: Total time managing care of this patient today ____ minutes.
--- NOTE | 2024-08-15 17:23 | PC.NURSE ---
#20angio cath removed without difficulty. Improved this evening he is brighter and has a small smile on his face.
[2024-08-15 20:20] VITALS: BP 134/63; PULSE 84; RESP 18; TEMP 36.8; O2SAT 94
--- NOTE | 2024-08-15 21:35 | P.PNPSI_ITS ---
Subjective Subjective Date of Service: 08/15/24 Reason For Visit: catatonia Subjective Notes: Conditional Voluntary Healthcare Proxy: Yes Interim History: Patient seen psychiatric follow-up. Patient with hand and jaw tremor. He is being treated for UTI does not feel like himself acknowledges his name needs encouragement to get out of bed has been taking in food and fluids. On bladder scanning and to monitor for need for catheterization continues on clozapine Mental Status Exam Mental Status Exam Patient Appearance: Fatigued and Disheveled Patient Orientation: Person and Place Patient Behavior: Fatigued Mood Description: Blunted and Apprehensive Affect Description: Blunted Patient Cognition Impaired: No Ability to Follow Directions: Good Speech Pattern: Impoverished and Soft-Spoken Hallucinations: None Delusions: Not Present Thought Process: Linear Thought Content: positive for Poverty of Content Depressive Symptoms: Sleeping More Than Usual, Loss of Int. in Activity and Increased Fatigue Abnormal Motor Activity Signs and Symptoms: Psychomotor Retardation Judgement: Fair Judgement and Insight: Patient awakens seem somewhat lethargic states ?I do not feel like myself? follows simple directions knows my name more withdrawn Diagnostics Vital Signs (24Hr): Vital Signs - 24 hr 08/15/24 08:00 08/15/24 10:38 08/15/24 20:20 Temperature 98.2 F 98.2 F Pulse Rate 80 84 Respiratory Rate 14 18 Blood Pressure 89/45 L 103/55 L 134/63 Pulse Oximetry 94 Oxygen Delivery Method Room Air Room Air BMI result Body Mass Index 28.2 Labs 08/16/24 07:16 08/16/24 05:30 Labs: Laboratory Results - last 48 hr 08/14/24 08/14/24 01:55 06:57 WBC 12.7 H RBC 3.82 L Hgb 10.8 L Hct 33.2 L MCV 86.9 MCH 28.3 MCHC 32.5 RDW 13.9 Plt Count 122 L D MPV 11.3 Absolute Nucleated RBC 0.000 Nucleated RBC % (auto) 0.0 Sodium 140 Potassium 4.0 Chloride 105 Carbon Dioxide 25 Anion Gap 14 BUN 19 H Creatinine 1.26 Estim Creat Clear Calc 61.5 Estimated GFR 58 Random Glucose 115 Calcium 8.7 Urine Color Yellow Urine Appearance Clear Urine pH 6.5 Ur Specific [place] <= 1.005 Urine Protein Negative Urine Glucose (UA) Negative Urine Ketones Negative Urine Blood Small (1+) H Urine Nitrite Negative Ur Leukocyte Esterase Large (3+) H Urine RBC 0-2 Urine WBC >50 H Ur Squamous Epith Cells 0-2 Urine Bacteria None Seen Hyaline Casts 0-2 Medications Medications Current Medications Acetaminophen (Acetaminophen 325 Mg Tablet) 650 mg PO Q6H PRN PRN Reason: Headache/Pain, Scale 1-10 Al Hydroxide/Mg Hydroxide (Magnesium Hydrox/Alum Hydrox 30 Ml Oral.Susp) 30 ml PO Q6H PRN PRN Reason: Heartburn/Nausea Albuterol/Ipratropium (Albuterol/Iprat 2.5/0.5mg 3 Ml Ampul.Neb) 3 ml INHALE QID PRN PRN Reason: Congestion Cefuroxime Axetil (Cefuroxime Axetil 250 Mg Tablet) 250 mg PO Q12H [facility] Clotrimazole (Clotrimazole 1 % Cream 15 Gm Tube) 1 appl TOPICAL BID [facility]; Protocol Stop: 08/23/24 10:29 Last Admin: 08/15/24 20:24 Dose: 1 appl Clozapine (Clozapine 100 Mg Tablet) 100 mg PO DAILY@1800 [facility] Last Admin: 08/15/24 17:10 Dose: 100 mg Divalproex Sodium (Divalproex Sodium 250 Mg Tablet.Dr) 125 mg PO BID [facility] Last Admin: 08/15/24 20:23 Dose: 125 mg Finasteride (Finasteride 5 Mg Tablet) 5 mg PO DAILY [facility] Last Admin: 08/15/24 08:47 Dose: 5 mg Lorazepam (Lorazepam 0.5 Mg Tablet) 0.5 mg PO TID [facility] Last Admin: 08/15/24 20:23 Dose: 0.5 mg Magnesium Hydroxide (Milk Of Magnesia 30 Ml Oral.Susp) 30 ml PO DAILY PRN PRN Reason: Constipation Olanzapine (Olanzapine Odt 10 Mg Tab.Rapdis) 5 mg TRANSLINGU BID PRN PRN Reason: agitation Last Admin: 08/14/24 17:36 Dose: 5 mg Sodium Chloride (0.9 % Sodium Chloride Flush 10 Ml Syringe) 5 ml IVFLUSH QSHIFT [facility] Last Admin: 08/15/24 16:16 Dose: Not Given Tamsulosin HCl (Tamsulosin Hcl 0.4 Mg Capsule) 0.8 mg PO BEDTIME [facility] Last Admin: 08/15/24 20:24 Dose: 0.8 mg Allergies Allergies Allergy/AdvReac Type Severity Reaction Status Date / Time No Known Allergies [NKA] Allergy Unknown NONE Verified 06/19/24 20:43 Assessment & Plan Assessment & Plan (1) Schizoaffective disorder: Status: Acute Code(s): F25.9 - Schizoaffective disorder, unspecified (2) Catatonia: Status: Acute Code(s): F06.1 - Catatonic disorder due to known physiological condition (3) UTI (urinary tract infection): Status: Acute Code(s): N39.0 - Urinary tract infection, site not specified Plan Leukocytosis/abnormal urinalysis/lethargy WBC 12.7 UA with small amount of blood, large leukocyte esterase, greater than 50 WBC. UA growing greater than [id number] gram-negative rods sensitivities pending We will start ceftriaxone 1 g IV for 5 days empirically pending culture 1 L normal saline Repeat labs in a.m. Urinary retention Patient bladder scan 690 cc, voided 320 declined follow-up bladder scan This morning he was bladder scanned as exam for 193 Continue to monitor bladder scans straight catheterization greater than 350 if no void May need to have catheter reinserted and follow up with Urology Continue Flomax at 0.8 and finasteride 5 mg Status post aspiration pneumonia/acute hypoxic respiratory failure/upper airway congestion He recently required ICU and intubation after a recent aspiration. Completed course of ampicillin Continues with upper airway congestion, Device at bedside Recommend Acapella device 4 times a day. Chest PT Ambulate three times daily. HOB elevated 30 degrees, OOB for meals. Duo nebs q.i.d. p.r.n. Chest x-ray done with no consolidation Continue to monitor an update medical provider with any changes 08/15/2024 UTI noted medical care per nurse practitioner. Some fluids given this morning became infiltrated. Continue p.o. treatment for UTI monitor need for Dove. Avoiding use of Cogentin for tremor secondary concerns regarding urinary retention. Taper Depakote in case contributing to tremor. Check clozapine level ketamine held today secondary to urinary infection will restart in number of days. Has not generally responded to lorazepam usually primary treatments to full catatonia trying to avoid ECT secondary to pulmonary concerns. Neuro consult again previously discussed use of dopaminergic agents which the erratically and in some case reports can be helpful with catatonia. Reason for continued inpatient stay Substantial Risk for: inability to function, rapid decompensation and med/psych decompensation Time Spent With Patient Time: Total time managing care of this patient today ____ minutes.
[2024-08-16 05:58] LABS: Anion Gap 13 (12-20); Blood Urea Nitrogen 16 mg/dL (9-16); Calcium 8.4 mg/dL (8.4-10.2); Carbon Dioxide 25 mmol/L (22-29); Chloride 109 mmol/L (96-108); Creatinine Clr Calc Pharmacy 78.2; Estimated Glomerular Filt Rate > 60; Potassium 4.2 mmol/L (3.3-5.1); Sodium 143 mmol/L (135-145)
[2024-08-16 08:01] LABS: Hematocrit 32.2 % (42.0-52.0); Hemoglobin 10.4 g/dl (14.0-18.0); Imm Gran Abs Auto 0.05 X10*3/uL (0.00-0.03); Imm Gran Pct Auto 0.9 % (0.0-0.4); Lymphocytes Absolute Auto 1.2 X10*3/uL (1.2-4.9); Mean Corpuscular HGB Conc 32.3 g/dl (31.0-36.0); Mean Corpuscular Hemoglobin 28.3 pg (27.0-33.0); Mean Corpuscular Volume 87.7 fL (80.0-98.0); NRBC Abs Auto 0.000 X10*3/uL (0.0-0.012); NRBC Pct Auto 0.0 /100WBC (0.0-0.2); Platelet Count 146 X10*3/uL (160-400); Red Blood Count 3.67 X10*6/uL (4.60-5.80); White Blood Count 5.8 X10*3/uL (4.8-10.8)
[2024-08-16 08:20] LABS: MANUAL DIFF FLAG NO
[2024-08-16 08:24] VITALS: BP 108/56; PULSE 90; RESP 20; TEMP 36.8; O2SAT 94
[2024-08-16] MEDS: Clotrimazole 1 % Cream 15 GM TUBE 1 APPL TOPICAL (08:33)
[2024-08-16 09:03] LABS: Iron 35 mcg/dL (45-160); Percent Iron Saturation 29 % (15-50); Total Iron Binding Capacity 122 mcg/dL (228-428); Unsaturated Iron Binding 87 ug/dL
[2024-08-16 09:17] LABS: Ferritin 409 ng/mL (20-250)
[2024-08-16 10:13] VITALS: BP 108/56; PULSE 90; O2SAT 94
--- NOTE | 2024-08-16 10:31 | P.PNIM_ITS ---
Subjective Subjective Date of Service: 08/16/24 Interval History: Patient is seen for follow-up leukocytosis and lethargy. Recent chest x-ray was negative, he continues on antibiotic therapy for presumed UTI. He received approximately 300 cc of fluids yesterday his blood pressure is 108/56 today. He is slightly anemic, his iron studies demonstrate iron deficiency anemia, we will start iron. No active signs of bleeding. He has been out of bed eating breakfast. He is more alert. Review of Systems Denies any shortness of breath, chest pain, dizziness, lightheadedness, abdominal pain or discomfort, nausea vomiting or diarrhea Physical Exam 2 Vital Signs: Vital Signs: Last Vital Signs Temp 98.2 F 08/16/24 08:24 Pulse 90 08/16/24 10:13 Resp 20 08/16/24 08:24 BP 108/56 L 08/16/24 10:13 Pulse Ox 94 08/16/24 10:13 O2 Del Method Room Air 08/16/24 08:24 BMI result Body Mass Index 28.2 CONST: Alert and oriented, in NAD. Well nourished HEENT: Normocephalic, atraumatic, MMM RESP: Lungs clear, RRR even and regular HEART:,RRR, S1, S2. no edema GI:Abdomen Soft NT, ND. + BS times four :Deferred SKIN: Warm dry and intact, no visible lesions or rashes NEURO:CN II-XII Intact bilaterally, Sensation intact. Speech clear PSYCH: Normal affect Objective Data Active Medications Acetaminophen (Acetaminophen 325 Mg Tablet) 650 mg PO Q6H PRN PRN Reason: Headache/Pain, Scale 1-10 Al Hydroxide/Mg Hydroxide (Magnesium Hydrox/Alum Hydrox 30 Ml Oral.Susp) 30 ml PO Q6H PRN PRN Reason: Heartburn/Nausea Albuterol/Ipratropium (Albuterol/Iprat 2.5/0.5mg 3 Ml Ampul.Neb) 3 ml INHALE QID PRN PRN Reason: Congestion Cefuroxime Axetil (Cefuroxime Axetil 250 Mg Tablet) 250 mg PO Q12H [facility] Last Admin: 08/15/24 21:56 Dose: 250 mg Documented By: FAZAL Clotrimazole (Clotrimazole 1 % Cream 15 Gm Tube) 1 appl TOPICAL BID [facility]; Protocol Stop: 08/23/24 10:29 Last Admin: 08/16/24 08:33 Dose: 1 appl Documented By: JIMBO Clozapine (Clozapine 100 Mg Tablet) 100 mg PO DAILY@1800 [facility] Last Admin: 08/15/24 17:10 Dose: 100 mg Documented By: KANE Finasteride (Finasteride 5 Mg Tablet) 5 mg PO DAILY [facility] Last Admin: 08/16/24 08:30 Dose: 5 mg Documented By: JIMBO Lorazepam (Lorazepam 0.5 Mg Tablet) 0.5 mg PO TID [facility] Last Admin: 08/16/24 08:29 Dose: 0.5 mg Documented By: JIMBO Magnesium Hydroxide (Milk Of Magnesia 30 Ml Oral.Susp) 30 ml PO DAILY PRN PRN Reason: Constipation Olanzapine (Olanzapine Odt 10 Mg Tab.Rapdis) 5 mg TRANSLINGU BID PRN PRN Reason: agitation Last Admin: 08/14/24 17:36 Dose: 5 mg Documented By: KANE Tamsulosin HCl (Tamsulosin Hcl 0.4 Mg Capsule) 0.8 mg PO BEDTIME [facility] Last Admin: 08/15/24 20:24 Dose: 0.8 mg Documented By: FAZAL Labs 08/16/24 07:16 08/16/24 05:30 Labs: Laboratory Results - last 24 hr 08/16/24 08/16/24 05:30 07:16 MCV 87.7 MCH 28.3 MCHC 32.3 RDW 13.9 Plt Count 146 L MPV 11.3 Immature Gran % (Auto) 0.9 H Neut % (Auto) 68.6 Lymph % (Auto) 20.9 [place] % (Auto) 9.4 Eos % (Auto) 0.0 Baso % (Auto) 0.2 Lymph # (Auto) 1.2 [place] # (Auto) 0.5 Eos # (Auto) 0.0 Baso # (Auto) 0.0 Abs Immat Gran (auto) 0.05 H Absolute Neuts (auto) 4.0 Absolute Nucleated RBC 0.000 Nucleated RBC % (auto) 0.0 Anion Gap 13 Estim Creat Clear Calc 78.2 Estimated GFR > 60 Random Glucose 129 H Calcium 8.4 Iron 35 L TIBC 122 L % Saturation 29 Unsat Iron Binding 87 Ferritin 409 H Microbiology Microbiology Results: Microbiology 08/14/24 Unknown Urine Culture - Preliminary Urine clean catch - Clean Catch Midstream Escherichia coli Assessment and Plan (1) UTI (urinary tract infection): Status: Acute Plan Urinary tract infection Continue cefuroxime as ordered. Leukocytosis resolved Lethargy Improved Cough and congestion We will enter updraft nebulizers via respiratory therapy. Continue use of respiratory device Quality Stroke Does the patient have a stroke diagnosis?: No VTE Prior VTE?: No VTE Risk Level:: Medical - moderate - high VTE Device Contraindication: Treatment Not Indicated VTE Drug Contraindication: Treatment Not Indicated
--- NOTE | 2024-08-16 16:51 | P.PNPSI_ITS ---
Subjective Subjective Date of Service: 08/16/24 Reason For Visit: catatonia Subjective Notes: Conditional Voluntary Healthcare Proxy: Yes Interim History: Patient a little bit more alert today has not needed to be straight cath. Mouth tremor and hand tremor continue can not take Cogentin secondary to recent urinary retention right hand tremor facial tremor and dyskinesia noted. Continues to be treated with antibiotics for UTI he is eating and drinking Mental Status Exam Mental Status Exam Patient Appearance: Fatigued and Disheveled Patient Orientation: Person and Place Patient Behavior: Passive and Fatigued Mood Description: Blunted and Apprehensive Affect Description: Blunted Patient Cognition Impaired: No Ability to Follow Directions: Good Speech Pattern: Impoverished and Soft-Spoken Hallucinations: None Delusions: Not Present Thought Process: Linear Thought Content: positive for Poverty of Content Depressive Symptoms: Sleeping More Than Usual, Loss of Int. in Activity and Increased Fatigue Abnormal Motor Activity Signs and Symptoms: Psychomotor Retardation Judgement: Fair Judgement and Insight: Patient awakens seem somewhat lethargic states ?I do not feel like myself? follows simple directions knows my name more withdrawn Diagnostics Vital Signs (24Hr): Vital Signs - 24 hr 08/15/24 20:20 08/16/24 08:24 08/16/24 10:13 Temperature 98.2 F 98.2 F Pulse Rate 84 90 90 Respiratory Rate 18 20 Blood Pressure 134/63 108/56 L 108/56 L Pulse Oximetry 94 94 94 Oxygen Delivery Method Room Air Room Air BMI result Body Mass Index 28.2 Labs 08/16/24 07:16 08/16/24 05:30 Labs: Laboratory Results - last 48 hr 08/16/24 08/16/24 05:30 07:16 WBC 5.8 RBC 3.67 L Hgb 10.4 L Hct 32.2 L MCV 87.7 MCH 28.3 MCHC 32.3 RDW 13.9 Plt Count 146 L MPV 11.3 Immature Gran % (Auto) 0.9 H Neut % (Auto) 68.6 Lymph % (Auto) 20.9 [place] % (Auto) 9.4 Eos % (Auto) 0.0 Baso % (Auto) 0.2 Lymph # (Auto) 1.2 [place] # (Auto) 0.5 Eos # (Auto) 0.0 Baso # (Auto) 0.0 Abs Immat Gran (auto) 0.05 H Absolute Neuts (auto) 4.0 Absolute Nucleated RBC 0.000 Nucleated RBC % (auto) 0.0 Sodium 143 Potassium 4.2 Chloride 109 H Carbon Dioxide 25 Anion Gap 13 BUN 16 Creatinine 1.08 Estim Creat Clear Calc 78.2 Estimated GFR > 60 Random Glucose 129 H Calcium 8.4 Iron 35 L TIBC 122 L % Saturation 29 Unsat Iron Binding 87 Ferritin 409 H Medications Medications Current Medications Acetaminophen (Acetaminophen 325 Mg Tablet) 650 mg PO Q6H PRN PRN Reason: Headache/Pain, Scale 1-10 Al Hydroxide/Mg Hydroxide (Magnesium Hydrox/Alum Hydrox 30 Ml Oral.Susp) 30 ml PO Q6H PRN PRN Reason: Heartburn/Nausea Albuterol/Ipratropium (Albuterol/Iprat 2.5/0.5mg 3 Ml Ampul.Neb) 3 ml INHALE QID PRN PRN Reason: Congestion Albuterol/Ipratropium (Albuterol/Iprat 2.5/0.5mg 3 Ml Ampul.Neb) 3 ml INHALE RQ6H WHILE AWAKE [facility] Clotrimazole (Clotrimazole 1 % Cream 15 Gm Tube) 1 appl TOPICAL BID [facility]; Protocol Stop: 08/23/24 10:29 Last Admin: 08/16/24 08:33 Dose: 1 appl Clozapine (Clozapine 100 Mg Tablet) 100 mg PO DAILY@1800 [facility] Last Admin: 08/15/24 17:10 Dose: 100 mg Ferrous Sulfate (Ferrous Sulfate 324 Mg Tablet.Dr) 324 mg PO DAILY [facility] Finasteride (Finasteride 5 Mg Tablet) 5 mg PO DAILY [facility] Last Admin: 08/16/24 08:30 Dose: 5 mg Lorazepam (Lorazepam 0.5 Mg Tablet) 0.5 mg PO TID [facility] Last Admin: 08/16/24 15:11 Dose: 0.5 mg Magnesium Hydroxide (Milk Of Magnesia 30 Ml Oral.Susp) 30 ml PO DAILY PRN PRN Reason: Constipation Nitrofurantoin Macrocrystals (Nitrofurantoin Monohyd/M-Cryst 100 Mg Capsule) 100 mg PO BID [facility] Last Admin: 08/16/24 15:10 Dose: 100 mg Olanzapine (Olanzapine Odt 10 Mg Tab.Rapdis) 5 mg TRANSLINGU BID PRN PRN Reason: agitation Last Admin: 08/14/24 17:36 Dose: 5 mg Tamsulosin HCl (Tamsulosin Hcl 0.4 Mg Capsule) 0.8 mg PO BEDTIME [facility] Last Admin: 08/15/24 20:24 Dose: 0.8 mg Allergies Allergies Allergy/AdvReac Type Severity Reaction Status Date / Time No Known Allergies [NKA] Allergy Unknown NONE Verified 06/19/24 20:43 Assessment & Plan Assessment & Plan (1) Schizoaffective disorder: Status: Acute Code(s): F25.9 - Schizoaffective disorder, unspecified (2) Catatonia: Status: Acute Code(s): F06.1 - Catatonic disorder due to known physiological condition (3) UTI (urinary tract infection): Status: Acute Code(s): N39.0 - Urinary tract infection, site not specified Plan Leukocytosis/abnormal urinalysis/lethargy WBC 12.7 UA with small amount of blood, large leukocyte esterase, greater than 50 WBC. UA growing greater than [id number] gram-negative rods sensitivities pending We will start ceftriaxone 1 g IV for 5 days empirically pending culture 1 L normal saline Repeat labs in a.m. Urinary retention Patient bladder scan 690 cc, voided 320 declined follow-up bladder scan This morning he was bladder scanned as exam for 193 Continue to monitor bladder scans straight catheterization greater than 350 if no void May need to have catheter reinserted and follow up with Urology Continue Flomax at 0.8 and finasteride 5 mg Status post aspiration pneumonia/acute hypoxic respiratory failure/upper airway congestion He recently required ICU and intubation after a recent aspiration. Completed course of ampicillin Continues with upper airway congestion, Device at bedside Recommend Acapella device 4 times a day. Chest PT Ambulate three times daily. HOB elevated 30 degrees, OOB for meals. Duo nebs q.i.d. p.r.n. Chest x-ray done with no consolidation Continue to monitor an update medical provider with any changes 08/15/2024 UTI noted medical care per nurse practitioner. Some fluids given this morning became infiltrated. Continue p.o. treatment for UTI monitor need for Dove. Avoiding use of Cogentin for tremor secondary concerns regarding urinary retention. Taper Depakote in case contributing to tremor. Check clozapine level ketamine held today secondary to urinary infection will restart in number of days. Has not generally responded to lorazepam usually primary treatments to full catatonia trying to avoid ECT secondary to pulmonary concerns. Neuro consult again previously discussed use of dopaminergic agents which the erratically and in some case reports can be helpful with catatonia. 08/16/2024 Patient has not generally responded to lorazepam some response to ketamine but ketamine treatment held 1 time this week secondary to UTI with confusion. Continue clozapine will start dopamine agonist which may help with parkinsonism may also help off the with catatonia. If when started will need to watch for worsening psychosis Reason for continued inpatient stay Substantial Risk for: inability to function, rapid decompensation and med/psych decompensation Time Spent With Patient Time: Total time managing care of this patient today ____ minutes.
[2024-08-16 20:00] VITALS: BP 122/74; PULSE 97; RESP 20; TEMP 36.6; O2SAT 92
[2024-08-17 08:00] VITALS: BP 121/81; PULSE 91; RESP 18; TEMP 36.8; O2SAT 93
[2024-08-17] MEDS: Albuterol/Iprat 2.5/0.5MG 3 ML AMPUL.NEB INHALE ×2 (08:17→21:54)
[2024-08-17 08:32] VITALS: PULSE 92; RESP 18; O2SAT 94
--- NOTE | 2024-08-17 08:35 | PC.RT ---
RT in to see pt sec to new order of bronchodilator. Pt in no distress. Pt noted no history COPD or Asthma, a CXR on 08/14/24 shows no active process. pt not requiring and supplemental O2, LS noted clear/dim throughout, spo2 94% on RA and no change post svn noted. Nurse aware. RT to contact provider as svn not indicated.
[2024-08-17] MEDS: Ferrous Sulfate 324 MG TABLET.DR PO (08:59)
--- NOTE | 2024-08-17 09:59 | HO.PSYCHPN ---
Subjective Subjective Date of Service: 08/17/24 Reason For Visit: catatonia Interim History: Patient seen in his room. Withdrawn and didn't want to go to common room to eat. Sitting at bed eating lunch. Tremors noted. Says he feels depressed because he is all alone . He denies SI. Says he slept well. Denies pain. Remains on 1:1. Continues to be treated with antibiotics for UTI he is eating and drinking. Review of Systems Review of Systems Denies any shortness of breath, chest pain, dizziness, lightheadedness, abdominal pain or discomfort, nausea vomiting or diarrhea Mental Status Exam Mental Status Exam Narrative: pt in hosp garb , flat affect less spontaeous speech denies aud diaz no si or hi Patient Appearance: Fatigued and Disheveled Patient Orientation: Person and Place Level of Consciousness: Lethargic Patient Behavior: Passive and Fatigued Mood Description: Blunted and Apprehensive Affect Description: Blunted Patient Cognition Impaired: No Ability to Follow Directions: Good Speech Pattern: Impoverished and Soft-Spoken Diagnostics Vital Signs (24Hr): Vital Signs - 24 hr 08/16/24 10:13 08/16/24 20:00 08/17/24 08:32 Temperature 97.8 F Pulse Rate 90 97 92 Respiratory Rate 20 18 Blood Pressure 108/56 L 122/74 Pulse Oximetry 94 92 Oxygen Delivery Method Room Air BMI result Body Mass Index 28.2 Labs 08/16/24 07:16 08/16/24 05:30 Labs: Laboratory Results - last 48 hr 08/16/24 08/16/24 05:30 07:16 WBC 5.8 RBC 3.67 L Hgb 10.4 L Hct 32.2 L MCV 87.7 MCH 28.3 MCHC 32.3 RDW 13.9 Plt Count 146 L MPV 11.3 Immature Gran % (Auto) 0.9 H Neut % (Auto) 68.6 Lymph % (Auto) 20.9 Dixie % (Auto) 9.4 Eos % (Auto) 0.0 Baso % (Auto) 0.2 Lymph # (Auto) 1.2 Dixie # (Auto) 0.5 Eos # (Auto) 0.0 Baso # (Auto) 0.0 Abs Immat Gran (auto) 0.05 H Absolute Neuts (auto) 4.0 Absolute Nucleated RBC 0.000 Nucleated RBC % (auto) 0.0 Sodium 143 Potassium 4.2 Chloride 109 H Carbon Dioxide 25 Anion Gap 13 BUN 16 Creatinine 1.08 Estim Creat Clear Calc 78.2 Estimated GFR > 60 Random Glucose 129 H Calcium 8.4 Iron 35 L TIBC 122 L % Saturation 29 Unsat Iron Binding 87 Ferritin 409 H Medications Medications Current Medications Acetaminophen (Acetaminophen 325 Mg Tablet) 650 mg PO Q6H PRN PRN Reason: Headache/Pain, Scale 1-10 Al Hydroxide/Mg Hydroxide (Magnesium Hydrox/Alum Hydrox 30 Ml Oral.Susp) 30 ml PO Q6H PRN PRN Reason: Heartburn/Nausea Albuterol/Ipratropium (Albuterol/Iprat 2.5/0.5mg 3 Ml Ampul.Neb) 3 ml INHALE QID PRN PRN Reason: Congestion Albuterol/Ipratropium (Albuterol/Iprat 2.5/0.5mg 3 Ml Ampul.Neb) 3 ml INHALE RQ6H WHILE AWAKE [facility] Last Admin: 08/17/24 08:17 Dose: 3 ml Clotrimazole (Clotrimazole 1 % Cream 15 Gm Tube) 1 appl TOPICAL BID [facility]; Protocol Stop: 08/23/24 10:29 Last Admin: 08/16/24 22:50 Dose: Not Given Clozapine (Clozapine 100 Mg Tablet) 100 mg PO DAILY@1800 [facility] Last Admin: 08/16/24 17:55 Dose: 100 mg Ferrous Sulfate (Ferrous Sulfate 324 Mg Tablet.Dr) 324 mg PO DAILY [facility] Last Admin: 08/17/24 08:59 Dose: 324 mg Finasteride (Finasteride 5 Mg Tablet) 5 mg PO DAILY [facility] Last Admin: 08/17/24 08:59 Dose: 5 mg Lorazepam (Lorazepam 0.5 Mg Tablet) 0.5 mg PO TID [facility] Last Admin: 08/17/24 08:59 Dose: 0.5 mg Magnesium Hydroxide (Milk Of Magnesia 30 Ml Oral.Susp) 30 ml PO DAILY PRN PRN Reason: Constipation Nitrofurantoin Macrocrystals (Nitrofurantoin Monohyd/M-Cryst 100 Mg Capsule) 100 mg PO BID [facility] Last Admin: 08/17/24 08:59 Dose: 100 mg Olanzapine (Olanzapine Odt 10 Mg Tab.Rapdis) 5 mg TRANSLINGU BID PRN PRN Reason: agitation Last Admin: 08/14/24 17:36 Dose: 5 mg Tamsulosin HCl (Tamsulosin Hcl 0.4 Mg Capsule) 0.8 mg PO BEDTIME [facility] Last Admin: 08/16/24 20:42 Dose: 0.8 mg Allergies Allergies Allergy/AdvReac Type Severity Reaction Status Date / Time No Known Allergies [NKA] Allergy Unknown NONE Verified 06/19/24 20:43 Assessment & Plan Assessment & Plan (1) Schizoaffective disorder: Status: Acute Code(s): F25.9 - Schizoaffective disorder, unspecified (2) Catatonia: Status: Acute Code(s): F06.1 - Catatonic disorder due to known physiological condition (3) UTI (urinary tract infection): Status: Acute Code(s): N39.0 - Urinary tract infection, site not specified Plan Leukocytosis/abnormal urinalysis/lethargy WBC 12.7 UA with small amount of blood, large leukocyte esterase, greater than 50 WBC. UA growing greater than [id number] gram-negative rods sensitivities pending We will start ceftriaxone 1 g IV for 5 days empirically pending culture 1 L normal saline Repeat labs in a.m. Urinary retention Patient bladder scan 690 cc, voided 320 declined follow-up bladder scan This morning he was bladder scanned as exam for 193 Continue to monitor bladder scans straight catheterization greater than 350 if no void May need to have catheter reinserted and follow up with Urology Continue Flomax at 0.8 and finasteride 5 mg Status post aspiration pneumonia/acute hypoxic respiratory failure/upper airway congestion He recently required ICU and intubation after a recent aspiration. Completed course of ampicillin Continues with upper airway congestion, Device at bedside Recommend Acapella device 4 times a day. Chest PT Ambulate three times daily. HOB elevated 30 degrees, OOB for meals. Duo nebs q.i.d. p.r.n. Chest x-ray done with no consolidation Continue to monitor an update medical provider with any changes 08/15/2024 UTI noted medical care per nurse practitioner. Some fluids given this morning became infiltrated. Continue p.o. treatment for UTI monitor need for Dove. Avoiding use of Cogentin for tremor secondary concerns regarding urinary retention. Taper Depakote in case contributing to tremor. Check clozapine level ketamine held today secondary to urinary infection will restart in number of days. Has not generally responded to lorazepam usually primary treatments to full catatonia trying to avoid ECT secondary to pulmonary concerns. Neuro consult again previously discussed use of dopaminergic agents which the erratically and in some case reports can be helpful with catatonia. 08/16/2024 Patient has not generally responded to lorazepam some response to ketamine but ketamine treatment held 1 time this week secondary to UTI with confusion. Continue clozapine will start dopamine agonist which may help with parkinsonism may also help off the with catatonia. If when started will need to watch for worsening psychosis 08/17: continue current management and treatment plan. Reason for continued inpatient stay Substantial Risk for: inability to function, rapid decompensation and med/psych decompensation Time Spent With Patient Time: Total time managing care of this patient today ____ minutes.
--- NOTE | 2024-08-17 12:25 | PC.NURSE ---
Benjamin has been isolating himself in his room. he has tremors down his right side. He has been ambulating to the BR and voiding he moved his bowels. He denies SI/HI 1:1 remains present.
--- NOTE | 2024-08-17 14:10 | PC.RT ---
Pt assessed for svn. Pt awake with sitter at bedside, LS are clear bilat, spo2 94% on RA with a HR of 97 and RR 17 and is in no distress at this time. Svn not indicated.
[2024-08-17 20:00] VITALS: BP 124/60; PULSE 105; RESP 16; TEMP 36.4; O2SAT 93
[2024-08-17 21:44] VITALS: PULSE 83; RESP 16; O2SAT 97
[2024-08-17] MEDS: Magnesium Hydrox/Alum Hydrox 30 ML ORAL.SUSP PO (21:50)
[2024-08-18] MEDS: OLANZapine ODT 10 MG TAB.RAPDIS 5 MG TRANSLINGU ×3 (03:42→21:32)
[2024-08-18 08:00] VITALS: BP 130/74; PULSE 82; RESP 16; TEMP 36.6; O2SAT 93
--- NOTE | 2024-08-18 08:30 | PC.RT ---
Pt assessed by RT this am for scheduled SVN. LS are clear bilat, spo2 on RA is 95%, RR 17, HR 85, NPC loose cough upon request. SVN not indicated.
[2024-08-18] MEDS: Ferrous Sulfate 324 MG TABLET.DR PO (09:05)
--- NOTE | 2024-08-18 14:20 | PC.RT ---
RT in to assess pt for scheduled svn. Pt awake, sitting up at edge of bed with [employer] CLAIMS PROCESSOR present. LS are clear bilat, spo2 97% on RA, npc on request and pt breathing unlabored. SVN not given, nursing aware.
--- NOTE | 2024-08-18 14:40 | P.PNPSI_ITS ---
Subjective Subjective Date of Service: 08/18/24 Reason For Visit: catatonia Interim History: Patient seen in his room. Withdrawn and isolative to his room. No groups. Says he had a bowel movement. Says his mood is so so . He denies SI. Says he slept well. Denies pain. Remains on 1:1. Continues to be treated with antibiotics for UTI he is eating and drinking. Review of Systems Review of Systems Denies any shortness of breath, chest pain, dizziness, lightheadedness, abdominal pain or discomfort, nausea vomiting or diarrhea Mental Status Exam Mental Status Exam Narrative: pt in hosp garb , flat affect less spontaeous speech denies aud diaz no si or hi Patient Appearance: Fatigued and Disheveled Patient Orientation: Person and Place Level of Consciousness: Lethargic Patient Behavior: Passive and Fatigued Mood Description: Blunted and Apprehensive Affect Description: Blunted Patient Cognition Impaired: No Ability to Follow Directions: Good Speech Pattern: Impoverished and Soft-Spoken Diagnostics Vital Signs (24Hr): Vital Signs - 24 hr 08/17/24 20:00 08/17/24 21:44 08/18/24 08:00 Temperature 97.6 F 97.9 F Pulse Rate 105 H 83 82 Respiratory Rate 16 16 16 Blood Pressure 124/60 130/74 Pulse Oximetry 93 93 Oxygen Delivery Method Room Air Room Air BMI result Body Mass Index 28.2 Labs 08/16/24 07:16 08/16/24 05:30 Medications Medications Current Medications Acetaminophen (Acetaminophen 325 Mg Tablet) 650 mg PO Q6H PRN PRN Reason: Headache/Pain, Scale 1-10 Last Admin: 08/18/24 04:29 Dose: 650 mg Al Hydroxide/Mg Hydroxide (Magnesium Hydrox/Alum Hydrox 30 Ml Oral.Susp) 30 ml PO Q6H PRN PRN Reason: Heartburn/Nausea Last Admin: 08/17/24 21:50 Dose: 30 ml Albuterol/Ipratropium (Albuterol/Iprat 2.5/0.5mg 3 Ml Ampul.Neb) 3 ml INHALE QID PRN PRN Reason: Congestion Albuterol/Ipratropium (Albuterol/Iprat 2.5/0.5mg 3 Ml Ampul.Neb) 3 ml INHALE RQ6H WHILE AWAKE [facility] Last Admin: 08/18/24 14:20 Dose: Not Given Clotrimazole (Clotrimazole 1 % Cream 15 Gm Tube) 1 appl TOPICAL BID [facility]; Protocol Stop: 08/23/24 10:29 Last Admin: 08/18/24 10:15 Dose: Not Given Clozapine (Clozapine 100 Mg Tablet) 100 mg PO DAILY@1800 [facility] Last Admin: 08/17/24 17:13 Dose: 100 mg Ferrous Sulfate (Ferrous Sulfate 324 Mg Tablet.Dr) 324 mg PO DAILY [facility] Last Admin: 08/18/24 09:05 Dose: 324 mg Finasteride (Finasteride 5 Mg Tablet) 5 mg PO DAILY [facility] Last Admin: 08/18/24 09:06 Dose: 5 mg Lorazepam (Lorazepam 0.5 Mg Tablet) 0.5 mg PO TID [facility] Last Admin: 08/18/24 09:05 Dose: 0.5 mg Magnesium Hydroxide (Milk Of Magnesia 30 Ml Oral.Susp) 30 ml PO DAILY PRN PRN Reason: Constipation Nitrofurantoin Macrocrystals (Nitrofurantoin Monohyd/M-Cryst 100 Mg Capsule) 100 mg PO BID [facility] Last Admin: 08/18/24 09:05 Dose: 100 mg Olanzapine (Olanzapine Odt 10 Mg Tab.Rapdis) 5 mg TRANSLINGU BID PRN PRN Reason: agitation Last Admin: 08/18/24 03:42 Dose: 5 mg Tamsulosin HCl (Tamsulosin Hcl 0.4 Mg Capsule) 0.8 mg PO BEDTIME [facility] Last Admin: 08/17/24 20:54 Dose: 0.8 mg Allergies Allergies Allergy/AdvReac Type Severity Reaction Status Date / Time No Known Allergies [NKA] Allergy Unknown NONE Verified 06/19/24 20:43 Assessment & Plan Assessment & Plan (1) Schizoaffective disorder: Status: Acute Code(s): F25.9 - Schizoaffective disorder, unspecified (2) Catatonia: Status: Acute Code(s): F06.1 - Catatonic disorder due to known physiological condition (3) UTI (urinary tract infection): Status: Acute Code(s): N39.0 - Urinary tract infection, site not specified Plan Leukocytosis/abnormal urinalysis/lethargy WBC 12.7 UA with small amount of blood, large leukocyte esterase, greater than 50 WBC. UA growing greater than [phone] gram-negative rods sensitivities pending We will start ceftriaxone 1 g IV for 5 days empirically pending culture 1 L normal saline Repeat labs in a.m. Urinary retention Patient bladder scan 690 cc, voided 320 declined follow-up bladder scan This morning he was bladder scanned as exam for 193 Continue to monitor bladder scans straight catheterization greater than 350 if no void May need to have catheter reinserted and follow up with Urology Continue Flomax at 0.8 and finasteride 5 mg Status post aspiration pneumonia/acute hypoxic respiratory failure/upper airway congestion He recently required ICU and intubation after a recent aspiration. Completed course of ampicillin Continues with upper airway congestion, Device at bedside Recommend Acapella device 4 times a day. Chest PT Ambulate three times daily. HOB elevated 30 degrees, OOB for meals. Duo nebs q.i.d. p.r.n. Chest x-ray done with no consolidation Continue to monitor an update medical provider with any changes 08/15/2024 UTI noted medical care per nurse practitioner. Some fluids given this morning became infiltrated. Continue p.o. treatment for UTI monitor need for Dove. Avoiding use of Cogentin for tremor secondary concerns regarding urinary retention. Taper Depakote in case contributing to tremor. Check clozapine level ketamine held today secondary to urinary infection will restart in number of days. Has not generally responded to lorazepam usually primary treatments to full catatonia trying to avoid ECT secondary to pulmonary concerns. Neuro consult again previously discussed use of dopaminergic agents which the erratically and in some case reports can be helpful with catatonia. 08/16/2024 Patient has not generally responded to lorazepam some response to ketamine but ketamine treatment held 1 time this week secondary to UTI with confusion. Continue clozapine will start dopamine agonist which may help with parkinsonism may also help off the with catatonia. If when started will need to watch for worsening psychosis 08/17: continue current management and treatment plan. 08/18/24: continue current management and treatment plan. Reason for continued inpatient stay Substantial Risk for: inability to function and rapid decompensation Time Spent With Patient Time: Total time managing care of this patient today ____ minutes.
--- NOTE | 2024-08-18 16:44 | PC.NURSE ---
Having increased anxiety due to the increased amt of noise on the unit
[2024-08-18 18:21] LABS: Neut%MD 69.1 %; WBCANC 8.6 X10*3/uL
[2024-08-18 20:00] VITALS: BP 114/58; PULSE 86; RESP 16; TEMP 36.5; O2SAT 96
[2024-08-18 21:00] VITALS: PULSE 100; RESP 16; O2SAT 93
[2024-08-18] MEDS: Clotrimazole 1 % Cream 15 GM TUBE 1 APPL TOPICAL (21:34)
[2024-08-18 21:44] LABS: Clozapine (Clozaril) 496 mcg/L
[2024-08-19 08:00] VITALS: BP 138/69; PULSE 97; RESP 17; TEMP 36.4; O2SAT 93
[2024-08-19] MEDS: Ferrous Sulfate 324 MG TABLET.DR PO (08:41)
--- NOTE | 2024-08-19 09:33 | HO.PSYCHPN ---
Subjective Subjective Date of Service: 08/19/24 Reason For Visit: catatonia Interim History: Patient had lunch in the common room today. Reports he is feeling well. RN didn't document him receiving Clozaril last night so it's not 100% if he did or didn't. No changes in his mood or psychosis noted. Says his mood is so so . He denies SI. Remains flat. Says he slept well. Denies pain. Remains on 1:1. Continues to be treated with antibiotics for UTI he is eating and drinking. Review of Systems Review of Systems Denies any shortness of breath, chest pain, dizziness, lightheadedness, abdominal pain or discomfort, nausea vomiting or diarrhea Mental Status Exam Mental Status Exam Narrative: pt in hosp garb , flat affect less spontaeous speech denies aud diaz no si or hi Patient Appearance: Fatigued and Disheveled Patient Orientation: Person and Place Level of Consciousness: Lethargic Patient Behavior: Passive and Fatigued Mood Description: Blunted and Apprehensive Affect Description: Blunted Patient Cognition Impaired: No Ability to Follow Directions: Good Speech Pattern: Impoverished and Soft-Spoken Diagnostics Vital Signs (24Hr): Vital Signs - 24 hr 08/18/24 20:00 08/18/24 21:00 08/19/24 08:00 Temperature 97.7 F 97.5 F Pulse Rate 86 100 97 Respiratory Rate 16 16 17 Blood Pressure 114/58 L 138/69 Pulse Oximetry 96 93 Oxygen Delivery Method Room Air Room Air BMI result Body Mass Index 28.2 Labs 08/16/24 07:16 08/16/24 05:30 Labs: Laboratory Results - last 48 hr 08/15/24 08/18/24 07:18 17:49 Absolute Neuts (auto) 5.9 Clozapine 496 Norclozapine 111 Medications Medications Current Medications Acetaminophen (Acetaminophen 325 Mg Tablet) 650 mg PO Q6H PRN PRN Reason: Headache/Pain, Scale 1-10 Last Admin: 08/18/24 04:29 Dose: 650 mg Al Hydroxide/Mg Hydroxide (Magnesium Hydrox/Alum Hydrox 30 Ml Oral.Susp) 30 ml PO Q6H PRN PRN Reason: Heartburn/Nausea Last Admin: 08/17/24 21:50 Dose: 30 ml Albuterol/Ipratropium (Albuterol/Iprat 2.5/0.5mg 3 Ml Ampul.Neb) 3 ml INHALE QID PRN PRN Reason: Congestion Albuterol/Ipratropium (Albuterol/Iprat 2.5/0.5mg 3 Ml Ampul.Neb) 3 ml INHALE RQ6H WHILE AWAKE [facility] Last Admin: 08/18/24 22:03 Dose: Not Given Clotrimazole (Clotrimazole 1 % Cream 15 Gm Tube) 1 appl TOPICAL BID [facility]; Protocol Stop: 08/23/24 10:29 Last Admin: 08/18/24 21:34 Dose: 1 appl Clozapine (Clozapine 100 Mg Tablet) 100 mg PO DAILY@1800 [facility] Last Admin: 08/17/24 17:13 Dose: 100 mg Ferrous Sulfate (Ferrous Sulfate 324 Mg Tablet.Dr) 324 mg PO DAILY [facility] Last Admin: 08/19/24 08:41 Dose: 324 mg Finasteride (Finasteride 5 Mg Tablet) 5 mg PO DAILY [facility] Last Admin: 08/19/24 08:42 Dose: 5 mg Lorazepam (Lorazepam 0.5 Mg Tablet) 0.5 mg PO TID [facility] Last Admin: 08/19/24 08:41 Dose: 0.5 mg Magnesium Hydroxide (Milk Of Magnesia 30 Ml Oral.Susp) 30 ml PO DAILY PRN PRN Reason: Constipation Nitrofurantoin Macrocrystals (Nitrofurantoin Monohyd/M-Cryst 100 Mg Capsule) 100 mg PO BID [facility] Last Admin: 08/19/24 08:42 Dose: 100 mg Olanzapine (Olanzapine Odt 10 Mg Tab.Rapdis) 5 mg TRANSLINGU BID PRN PRN Reason: agitation Last Admin: 08/18/24 21:32 Dose: 5 mg Tamsulosin HCl (Tamsulosin Hcl 0.4 Mg Capsule) 0.8 mg PO BEDTIME [facility] Last Admin: 08/18/24 21:32 Dose: 0.8 mg Allergies Allergies Allergy/AdvReac Type Severity Reaction Status Date / Time No Known Allergies [NKA] Allergy Unknown NONE Verified 06/19/24 20:43 Assessment & Plan Assessment & Plan (1) Schizoaffective disorder: Status: Acute Code(s): F25.9 - Schizoaffective disorder, unspecified (2) Catatonia: Status: Acute Code(s): F06.1 - Catatonic disorder due to known physiological condition (3) UTI (urinary tract infection): Status: Acute Code(s): N39.0 - Urinary tract infection, site not specified Plan Leukocytosis/abnormal urinalysis/lethargy WBC 12.7 UA with small amount of blood, large leukocyte esterase, greater than 50 WBC. UA growing greater than [id number] gram-negative rods sensitivities pending We will start ceftriaxone 1 g IV for 5 days empirically pending culture 1 L normal saline Repeat labs in a.m. Urinary retention Patient bladder scan 690 cc, voided 320 declined follow-up bladder scan This morning he was bladder scanned as exam for 193 Continue to monitor bladder scans straight catheterization greater than 350 if no void May need to have catheter reinserted and follow up with Urology Continue Flomax at 0.8 and finasteride 5 mg Status post aspiration pneumonia/acute hypoxic respiratory failure/upper airway congestion He recently required ICU and intubation after a recent aspiration. Completed course of ampicillin Continues with upper airway congestion, Device at bedside Recommend Acapella device 4 times a day. Chest PT Ambulate three times daily. HOB elevated 30 degrees, OOB for meals. Duo nebs q.i.d. p.r.n. Chest x-ray done with no consolidation Continue to monitor an update medical provider with any changes 08/15/2024 UTI noted medical care per nurse practitioner. Some fluids given this morning became infiltrated. Continue p.o. treatment for UTI monitor need for Dove. Avoiding use of Cogentin for tremor secondary concerns regarding urinary retention. Taper Depakote in case contributing to tremor. Check clozapine level ketamine held today secondary to urinary infection will restart in number of days. Has not generally responded to lorazepam usually primary treatments to full catatonia trying to avoid ECT secondary to pulmonary concerns. Neuro consult again previously discussed use of dopaminergic agents which the erratically and in some case reports can be helpful with catatonia. 08/16/2024 Patient has not generally responded to lorazepam some response to ketamine but ketamine treatment held 1 time this week secondary to UTI with confusion. Continue clozapine will start dopamine agonist which may help with parkinsonism may also help off the with catatonia. If when started will need to watch for worsening psychosis 08/17: continue current management and treatment plan. 08/18/24: continue current management and treatment plan. 08/19: continue current management and treatment plan. Reason for continued inpatient stay Substantial Risk for: inability to function and rapid decompensation Time Spent With Patient Time: Total time managing care of this patient today ____ minutes.
[2024-08-19] MEDS: Clotrimazole 1 % Cream 15 GM TUBE 1 APPL TOPICAL ×2 (10:21→20:53)
--- NOTE | 2024-08-19 11:19 | PC.RT ---
Pt lying down. RR is 16. No distress indicated by myself or the patient. L/S clear bilaterally. Unable to answer any questions at this time. Entire care team and doctor were all notified that the nebulizer was not clinically indicated
[2024-08-19 20:00] VITALS: BP 116/69; PULSE 91; RESP 16; TEMP 36.8; O2SAT 95
[2024-08-19] MEDS: OLANZapine ODT 10 MG TAB.RAPDIS 5 MG TRANSLINGU (20:51)
[2024-08-20] VITALS (10 sets, daily range): BP systolic 97–135; BP diastolic 48–94; PULSE 90–102; RESP 18–20; TEMP 36.4–36.8; O2SAT 92–99
[2024-08-20] MEDS: Ketamine HCl 500 MG in 0.9 % Sodium Chloride 250 ML 22.07 MG IV (08:04)
--- NOTE | 2024-08-20 10:28 | PC.NURSE ---
Pt picked up by Nisa Aguayo RN for transfer back to unit in wheelchair.
[2024-08-20] MEDS: Ferrous Sulfate 324 MG TABLET.DR PO (10:46)
--- NOTE | 2024-08-20 12:41 | HO.PM.IMPN ---
Subjective Subjective Date of Service: 08/20/24 Interval History: Patient was seen for follow-up congestion and urinary retention. Per review of nursing notes, patient has been voiding. He is out of bed today sitting in the common room eating a snack. He is status post ECT treatment. Continues on antibiotic therapy for UTI. Started on iron which he is tolerating. He is more alert. Lungs are clear. He denies any concerns. Review of Systems Denies any shortness of breath, chest pain, dizziness, lightheadedness, abdominal pain or discomfort, nausea vomiting or diarrhea Physical Exam Vital Signs: Vital Signs: Last Vital Signs Temp 97.9 F 08/20/24 10:15 Pulse 98 08/20/24 10:15 Resp 18 08/20/24 10:15 BP 132/83 08/20/24 10:15 Pulse Ox 99 08/20/24 10:15 O2 Del Method Room Air 08/20/24 10:15 BMI result Body Mass Index 28.2 CONST: Alert and oriented, in NAD. Well nourished HEENT: Normocephalic, atraumatic, MMM RESP: Lungs clear, RRR even and regular HEART:,RRR, S1, S2. No murmur, no edema GI:Abdomen Soft NT, ND. + BS times four :Deferred SKIN: Warm dry and intact, no visible lesions or rashes NEURO:Speech clear PSYCH: Normal affect Objective Data Active Medications Acetaminophen (Acetaminophen 325 Mg Tablet) 650 mg PO Q6H PRN PRN Reason: Headache/Pain, Scale 1-10 Last Admin: 08/18/24 04:29 Dose: 650 mg Documented By: ANTONIA Al Hydroxide/Mg Hydroxide (Magnesium Hydrox/Alum Hydrox 30 Ml Oral.Susp) 30 ml PO Q6H PRN PRN Reason: Heartburn/Nausea Last Admin: 08/17/24 21:50 Dose: 30 ml Documented By: ANTONIA Albuterol/Ipratropium (Albuterol/Iprat 2.5/0.5mg 3 Ml Ampul.Neb) 3 ml INHALE QID PRN PRN Reason: Congestion Clotrimazole (Clotrimazole 1 % Cream 15 Gm Tube) 1 appl TOPICAL BID [facility]; Protocol Stop: 08/23/24 10:29 Last Admin: 08/19/24 20:53 Dose: 1 appl Documented By: ARIANNA Clozapine (Clozapine 100 Mg Tablet) 100 mg PO DAILY@1800 [facility] Last Admin: 08/19/24 17:22 Dose: 100 mg Documented By: CYN Ferrous Sulfate (Ferrous Sulfate 324 Mg Tablet.Dr) 324 mg PO DAILY [facility] Last Admin: 08/20/24 10:46 Dose: 324 mg Documented By: JACKLYN Finasteride (Finasteride 5 Mg Tablet) 5 mg PO DAILY [facility] Last Admin: 08/20/24 10:46 Dose: 5 mg Documented By: JACKLYN Lorazepam (Lorazepam 0.5 Mg Tablet) 0.5 mg PO TID [facility] Last Admin: 08/20/24 10:46 Dose: 0.5 mg Documented By: JACKLYN Magnesium Hydroxide (Milk Of Magnesia 30 Ml Oral.Susp) 30 ml PO DAILY PRN PRN Reason: Constipation Nitrofurantoin Macrocrystals (Nitrofurantoin Monohyd/M-Cryst 100 Mg Capsule) 100 mg PO BID [facility] Last Admin: 08/20/24 10:46 Dose: 100 mg Documented By: JACKLYN Olanzapine (Olanzapine Odt 10 Mg Tab.Rapdis) 5 mg TRANSLINGU BID PRN PRN Reason: agitation Last Admin: 08/19/24 20:51 Dose: 5 mg Documented By: ARIANNA Tamsulosin HCl (Tamsulosin Hcl 0.4 Mg Capsule) 0.8 mg PO BEDTIME [facility] Last Admin: 08/19/24 20:51 Dose: 0.8 mg Documented By: ARIANNA Labs 08/16/24 07:16 08/16/24 05:30 Assessment and Plan (1) UTI (urinary tract infection): Status: Acute Plan Schizoaffective disorder Continue treatment per psychiatry team. Status post ECT treatment today Urinary tract infection Antibiotics changed to Macrobid due to sensitivities Leukocytosis resolved Tolerating antibiotics without issue Cough and congestion PRN updraft nebulizers. Continue use of respiratory device Continue to encourage mobility and out of bed for meals. Quality Stroke Does the patient have a stroke diagnosis?: No VTE Prior VTE?: No VTE Risk Level:: Medical - moderate - high VTE Device Contraindication: Treatment Not Indicated VTE Drug Contraindication: Treatment Not Indicated
--- NOTE | 2024-08-20 22:20 | P.PNPSI_ITS ---
Subjective Subjective Date of Service: 08/20/24 Reason For Visit: catatonia Subjective Notes: Conditional Voluntary Interim History: Patient is somewhat irritable dysphoric more reactive movement disorder question Parkinson's questions TD Medication Compliance: Intermittent Mental Status Exam Mental Status Exam Patient Appearance: Fatigued and Disheveled Patient Orientation: Person and Place Level of Consciousness: Lethargic Patient Behavior: Passive and Fatigued Mood Description: Blunted and Apprehensive Affect Description: Blunted Patient Cognition Impaired: No Ability to Follow Directions: Good Speech Pattern: Impoverished and Soft-Spoken Diagnostics Vital Signs (24Hr): Vital Signs - 24 hr 08/20/24 08:15 08/20/24 08:30 08/20/24 08:45 Temperature 98.2 F Pulse Rate 97 98 90 Respiratory Rate 18 18 20 Blood Pressure 118/58 L 129/62 97/48 L Pulse Oximetry 93 93 93 Oxygen Delivery Method Room Air Room Air Room Air 08/20/24 09:00 08/20/24 09:16 08/20/24 09:31 Temperature 98.0 F Pulse Rate 97 96 97 Respiratory Rate 20 20 20 Blood Pressure 128/74 108/65 132/80 Pulse Oximetry 92 92 94 Oxygen Delivery Method Room Air Room Air Room Air 08/20/24 09:46 08/20/24 10:00 08/20/24 10:15 Temperature 97.9 F Pulse Rate 95 98 98 Respiratory Rate 19 20 18 Blood Pressure 135/74 133/94 H 132/83 Pulse Oximetry 93 95 99 Oxygen Delivery Method Room Air Room Air Room Air 08/20/24 20:00 Temperature 97.5 F Pulse Rate 102 H Respiratory Rate 18 Blood Pressure 105/68 Pulse Oximetry 93 Oxygen Delivery Method Room Air BMI result Body Mass Index 28.2 Labs 08/16/24 07:16 08/16/24 05:30 Medications Medications Current Medications Acetaminophen (Acetaminophen 325 Mg Tablet) 650 mg PO Q6H PRN PRN Reason: Headache/Pain, Scale 1-10 Last Admin: 08/18/24 04:29 Dose: 650 mg Al Hydroxide/Mg Hydroxide (Magnesium Hydrox/Alum Hydrox 30 Ml Oral.Susp) 30 ml PO Q6H PRN PRN Reason: Heartburn/Nausea Last Admin: 08/17/24 21:50 Dose: 30 ml Albuterol/Ipratropium (Albuterol/Iprat 2.5/0.5mg 3 Ml Ampul.Neb) 3 ml INHALE QID PRN PRN Reason: Congestion Clotrimazole (Clotrimazole 1 % Cream 15 Gm Tube) 1 appl TOPICAL BID [facility]; Protocol Stop: 08/23/24 10:29 Last Admin: 08/20/24 22:05 Dose: Not Given Clozapine (Clozapine 100 Mg Tablet) 100 mg PO DAILY@1800 [facility] Last Admin: 08/19/24 17:22 Dose: 100 mg Ferrous Sulfate (Ferrous Sulfate 324 Mg Tablet.Dr) 324 mg PO DAILY [facility] Last Admin: 08/20/24 10:46 Dose: 324 mg Finasteride (Finasteride 5 Mg Tablet) 5 mg PO DAILY [facility] Last Admin: 08/20/24 10:46 Dose: 5 mg Lorazepam (Lorazepam 0.5 Mg Tablet) 0.5 mg PO TID [facility] Last Admin: 08/20/24 20:46 Dose: 0.5 mg Magnesium Hydroxide (Milk Of Magnesia 30 Ml Oral.Susp) 30 ml PO DAILY PRN PRN Reason: Constipation Memantine (Memantine Hcl 5 Mg Tablet) 5 mg PO DAILY [facility] Last Admin: 08/20/24 14:48 Dose: 5 mg Nitrofurantoin Macrocrystals (Nitrofurantoin Monohyd/M-Cryst 100 Mg Capsule) 100 mg PO BID [facility] Last Admin: 08/20/24 20:46 Dose: 100 mg Olanzapine (Olanzapine Odt 10 Mg Tab.Rapdis) 5 mg TRANSLINGU BID PRN PRN Reason: agitation Last Admin: 08/19/24 20:51 Dose: 5 mg Tamsulosin HCl (Tamsulosin Hcl 0.4 Mg Capsule) 0.8 mg PO BEDTIME [facility] Last Admin: 08/20/24 20:46 Dose: 0.8 mg Allergies Allergies Allergy/AdvReac Type Severity Reaction Status Date / Time No Known Allergies [NKA] Allergy Unknown NONE Verified 06/19/24 20:43 Assessment & Plan Assessment & Plan (1) UTI (urinary tract infection): Status: Acute Code(s): N39.0 - Urinary tract infection, site not specified Plan Schizoaffective disorder Continue treatment per psychiatry team. Status post ECT treatment today Urinary tract infection Antibiotics changed to Macrobid due to sensitivities Leukocytosis resolved Tolerating antibiotics without issue Cough and congestion PRN updraft nebulizers. Continue use of respiratory device Continue to encourage mobility and out of bed for meals. Continue ketamine treatment 08/20/2024 Reason for continued inpatient stay Substantial Risk for: inability to function, rapid decompensation and med/psych decompensation Time Spent With Patient Time: Total time managing care of this patient today ____ minutes.
--- NOTE | 2024-08-21 07:03 | PC.NURSE ---
Pt missed Clozaril at 1800, from the previous shift, Dr. Steven Huerta notified.
[2024-08-21] MEDS: Ferrous Sulfate 324 MG TABLET.DR PO (08:27)
[2024-08-21 08:32] VITALS: BP 134/68; PULSE 108; TEMP 36.6; O2SAT 94
[2024-08-21] MEDS: Clotrimazole 1 % Cream 15 GM TUBE 1 APPL TOPICAL (15:11)
--- NOTE | 2024-08-21 16:12 | PC.NURSE ---
n 08/18 revieved 100mg of Clozaril PO at 184
[2024-08-21 20:00] VITALS: BP 126/74; PULSE 98; RESP 16; TEMP 36.3; O2SAT 98
[2024-08-22] VITALS (11 sets, daily range): BP systolic 100–130; BP diastolic 49–72; PULSE 82–96; RESP 16–20; TEMP 36.8–37; O2SAT 93–96; BMI 27.1
[2024-08-22] MEDS: Ketamine HCl 500 MG in 0.9 % Sodium Chloride 250 ML 22.07 MG IV (08:05)
--- NOTE | 2024-08-22 08:38 | P.PNPSI_ITS ---
Subjective Subjective Date of Service: 08/21/24 Reason For Visit: catatonia Healthcare Proxy: Yes Interim History: Patient seen psychiatric follow-up. The patient has been somewhat more irritable less engaged and cooperative with care on the unit has been seen by Neurology there is question of parkinsonian side effects versus question of tardive dyskinesia Mental Status Exam Mental Status Exam Patient Appearance: Fatigued and Disheveled Patient Orientation: Person and Place Level of Consciousness: Lethargic Patient Behavior: Passive and Fatigued Mood Description: Blunted and Apprehensive Affect Description: Blunted Patient Cognition Impaired: No Ability to Follow Directions: Good Speech Pattern: Impoverished and Soft-Spoken Hallucinations: None Judgement: Fair Judgement and Insight: Slowed mentation mumbling more again some irritability right arm tremor and resting orofacial tremor versus dyskinesia Diagnostics Vital Signs (24Hr): Vital Signs - 24 hr 08/21/24 20:00 08/22/24 08:00 08/22/24 08:05 Temperature 97.3 F 98.4 F Pulse Rate 98 92 93 Respiratory Rate 16 18 16 Blood Pressure 126/74 108/63 115/62 Pulse Oximetry 98 94 95 Oxygen Delivery Method Room Air Room Air Room Air 08/22/24 08:20 08/22/24 08:35 Temperature Pulse Rate 96 91 Respiratory Rate 16 16 Blood Pressure 110/63 128/72 Pulse Oximetry 94 95 Oxygen Delivery Method Room Air Room Air BMI result Body Mass Index 28.2 Labs 08/16/24 07:16 08/16/24 05:30 Medications Medications Current Medications Acetaminophen (Acetaminophen 325 Mg Tablet) 650 mg PO Q6H PRN PRN Reason: Headache/Pain, Scale 1-10 Last Admin: 08/18/24 04:29 Dose: 650 mg Al Hydroxide/Mg Hydroxide (Magnesium Hydrox/Alum Hydrox 30 Ml Oral.Susp) 30 ml PO Q6H PRN PRN Reason: Heartburn/Nausea Last Admin: 08/17/24 21:50 Dose: 30 ml Albuterol/Ipratropium (Albuterol/Iprat 2.5/0.5mg 3 Ml Ampul.Neb) 3 ml INHALE QID PRN PRN Reason: Congestion Clotrimazole (Clotrimazole 1 % Cream 15 Gm Tube) 1 appl TOPICAL BID [facility]; Protocol Stop: 08/23/24 10:29 Last Admin: 08/21/24 20:59 Dose: Not Given Clozapine (Clozapine 100 Mg Tablet) 100 mg PO DAILY@1800 [facility] Last Admin: 08/21/24 19:53 Dose: Not Given Ferrous Sulfate (Ferrous Sulfate 324 Mg Tablet.Dr) 324 mg PO DAILY [facility] Last Admin: 08/21/24 08:27 Dose: 324 mg Finasteride (Finasteride 5 Mg Tablet) 5 mg PO DAILY [facility] Last Admin: 08/21/24 08:28 Dose: 5 mg Ketamine HCl 500 mg/ Sodium (Chloride) 22.069 mls @ 22.069 mls/hr IV .Q1H [facility]; Protocol Stop: 08/22/24 08:59 Lorazepam (Lorazepam 0.5 Mg Tablet) 0.5 mg PO TID [facility] Last Admin: 08/21/24 20:59 Dose: 0.5 mg Magnesium Hydroxide (Milk Of Magnesia 30 Ml Oral.Susp) 30 ml PO DAILY PRN PRN Reason: Constipation Memantine (Memantine Hcl 5 Mg Tablet) 5 mg PO DAILY [facility] Last Admin: 08/21/24 08:28 Dose: 5 mg Nitrofurantoin Macrocrystals (Nitrofurantoin Monohyd/M-Cryst 100 Mg Capsule) 100 mg PO BID [facility] Last Admin: 08/21/24 20:59 Dose: 100 mg Olanzapine (Olanzapine Odt 10 Mg Tab.Rapdis) 5 mg TRANSLINGU BID PRN PRN Reason: agitation Last Admin: 08/19/24 20:51 Dose: 5 mg Pramipexole Dihydrochloride (Pramipexole Di-Hcl 0.25 Mg Tablet) 0.25 mg PO TID [facility] Last Admin: 08/21/24 20:59 Dose: 0.25 mg Tamsulosin HCl (Tamsulosin Hcl 0.4 Mg Capsule) 0.8 mg PO BEDTIME [facility] Last Admin: 08/21/24 20:59 Dose: 0.8 mg Allergies Allergies Allergy/AdvReac Type Severity Reaction Status Date / Time No Known Allergies [NKA] Allergy Unknown NONE Verified 06/19/24 20:43 Assessment & Plan Assessment & Plan (1) UTI (urinary tract infection): Status: Acute Code(s): N39.0 - Urinary tract infection, site not specified Plan Schizoaffective disorder Continue treatment per psychiatry team. Status post ECT treatment today Urinary tract infection Antibiotics changed to Macrobid due to sensitivities Leukocytosis resolved Tolerating antibiotics without issue Cough and congestion PRN updraft nebulizers. Continue use of respiratory device Continue to encourage mobility and out of bed for meals. Continue ketamine treatment 08/20/2024 08/21/2024 Start dopamine agonist per Neurology see if improvement or worsening of mentation and movement disorder continue ketamine 529 Informed Consent: further education needed Reason for continued inpatient stay Substantial Risk for: inability to function, rapid decompensation and med/psych decompensation Time Spent With Patient Time: Total time managing care of this patient today ____ minutes.
[2024-08-22] MEDS: Ferrous Sulfate 324 MG TABLET.DR PO (10:19)
[2024-08-22] MEDS: Clotrimazole 1 % Cream 15 GM TUBE 1 APPL TOPICAL (10:20)
--- NOTE | 2024-08-22 21:00 | HO.PSYCHPN ---
Subjective Subjective Date of Service: 08/22/24 Reason For Visit: catatonia Subjective Notes: Conditional Voluntary Healthcare Proxy: Yes Interim History: Patient seen in psychiatric follow-up case reviewed in treatment planning. Patient had ketamine infusion this morning Started on dopamine agonist t.i.d. does seem to have less mouth movements and hand movements. Still significant delay Medication Compliance: Yes Mental Status Exam Mental Status Exam Patient Appearance: Fatigued and Disheveled Patient Orientation: Person and Place Level of Consciousness: Lethargic Patient Behavior: Passive and Fatigued Mood Description: Blunted and Apprehensive Affect Description: Blunted Patient Cognition Impaired: No Ability to Follow Directions: Good Speech Pattern: Impoverished and Soft-Spoken Hallucinations: None Judgement: Fair Judgement and Insight: Slowed mentation minimal response to questions less intense [id number] mouth movement and right arm tremor Diagnostics Vital Signs (24Hr): Vital Signs - 24 hr 08/22/24 08:00 08/22/24 08:05 08/22/24 08:20 Temperature 98.4 F Pulse Rate 92 93 96 Respiratory Rate 18 16 16 Blood Pressure 108/63 115/62 110/63 Pulse Oximetry 94 95 94 Oxygen Delivery Method Room Air Room Air Room Air 08/22/24 08:35 08/22/24 08:50 08/22/24 09:05 Temperature Pulse Rate 91 89 87 Respiratory Rate 16 16 16 Blood Pressure 128/72 123/72 130/71 Pulse Oximetry 95 95 93 Oxygen Delivery Method Room Air Room Air Room Air 08/22/24 09:18 08/22/24 09:33 08/22/24 09:48 Temperature Pulse Rate 84 82 85 Respiratory Rate 16 16 16 Blood Pressure 105/52 L 100/49 L 110/61 Pulse Oximetry 93 96 96 Oxygen Delivery Method Room Air Room Air Room Air 08/22/24 10:02 Temperature 98.6 F Pulse Rate 84 Respiratory Rate 20 Blood Pressure 114/58 L Pulse Oximetry 95 Oxygen Delivery Method Room Air BMI result Body Mass Index 27.1 Labs 08/16/24 07:16 08/16/24 05:30 Medications Medications Current Medications Acetaminophen (Acetaminophen 325 Mg Tablet) 650 mg PO Q6H PRN PRN Reason: Headache/Pain, Scale 1-10 Last Admin: 08/18/24 04:29 Dose: 650 mg Al Hydroxide/Mg Hydroxide (Magnesium Hydrox/Alum Hydrox 30 Ml Oral.Susp) 30 ml PO Q6H PRN PRN Reason: Heartburn/Nausea Last Admin: 08/17/24 21:50 Dose: 30 ml Albuterol/Ipratropium (Albuterol/Iprat 2.5/0.5mg 3 Ml Ampul.Neb) 3 ml INHALE QID PRN PRN Reason: Congestion Clotrimazole (Clotrimazole 1 % Cream 15 Gm Tube) 1 appl TOPICAL BID [facility]; Protocol Stop: 08/23/24 10:29 Last Admin: 08/22/24 20:14 Dose: Not Given Clozapine (Clozapine 100 Mg Tablet) 100 mg PO DAILY@1999 [facility] Last Admin: 08/22/24 18:42 Dose: 100 mg Ferrous Sulfate (Ferrous Sulfate 324 Mg Tablet.Dr) 324 mg PO DAILY [facility] Last Admin: 08/22/24 10:19 Dose: 324 mg Finasteride (Finasteride 5 Mg Tablet) 5 mg PO DAILY [facility] Last Admin: 08/22/24 10:20 Dose: 5 mg Lorazepam (Lorazepam 0.5 Mg Tablet) 0.5 mg PO TID [facility] Last Admin: 08/22/24 20:09 Dose: 0.5 mg Magnesium Hydroxide (Milk Of Magnesia 30 Ml Oral.Susp) 30 ml PO DAILY PRN PRN Reason: Constipation Nitrofurantoin Macrocrystals (Nitrofurantoin Monohyd/M-Cryst 100 Mg Capsule) 100 mg PO BID [facility] Last Admin: 08/22/24 20:09 Dose: 100 mg Olanzapine (Olanzapine Odt 10 Mg Tab.Rapdis) 5 mg TRANSLINGU BID PRN PRN Reason: agitation Last Admin: 08/19/24 20:51 Dose: 5 mg Pramipexole Dihydrochloride (Pramipexole Di-Hcl 0.25 Mg Tablet) 0.25 mg PO TID [facility] Last Admin: 08/22/24 20:09 Dose: 0.25 mg Tamsulosin HCl (Tamsulosin Hcl 0.4 Mg Capsule) 0.8 mg PO BEDTIME [facility] Last Admin: 08/22/24 20:08 Dose: 0.8 mg Allergies Allergies Allergy/AdvReac Type Severity Reaction Status Date / Time No Known Allergies [NKA] Allergy Unknown NONE Verified 06/19/24 20:43 Assessment & Plan Assessment & Plan (1) UTI (urinary tract infection): Status: Acute Code(s): N39.0 - Urinary tract infection, site not specified Plan Schizoaffective disorder Continue treatment per psychiatry team. Status post ECT treatment today Urinary tract infection Antibiotics changed to Macrobid due to sensitivities Leukocytosis resolved Tolerating antibiotics without issue Cough and congestion PRN updraft nebulizers. Continue use of respiratory device Continue to encourage mobility and out of bed for meals. Continue ketamine treatment 08/20/2024 08/21/2024 Start dopamine agonist per Neurology see if improvement or worsening of mentation and movement disorder continue ketamine 529 08/22/2024 Dopamine agonist to treat catatonia continue ketamine increase Clozaril as tolerated monitor for over-sedation Reason for continued inpatient stay Substantial Risk for: rapid decompensation and med/psych decompensation Time Spent With Patient Time: Total time managing care of this patient today ____ minutes.
[2024-08-23 08:00] VITALS: BP 98/51; PULSE 88; RESP 14; TEMP 36.3; O2SAT 94
[2024-08-23] MEDS: Ferrous Sulfate 324 MG TABLET.DR PO (10:07)
[2024-08-23 20:00] VITALS: BP 98/58; PULSE 82; RESP 16; TEMP 36.9; O2SAT 94
--- NOTE | 2024-08-23 22:41 | HO.PSYCHPN ---
Subjective Subjective Date of Service: 08/23/24 Reason For Visit: catatonia Subjective Notes: Conditional Voluntary Healthcare Proxy: Yes Interim History: Patient seen psychiatric follow-up. Patient's mood flat anxious limited motivation. Answers in one-word answers. Patient being treated for UTI Remains with catatonic symptoms paucity of speech minimal physical activity minimal minimal response to verbal questioning Mental Status Exam Mental Status Exam Narrative: Patient seen lying in bed some decrease in movement does respond to name mood somewhat irritable reactive some response to verbal questioning denies hallucinations somewhat less labile and aggressive was able to stand up and walk with difficulty Diagnostics Vital Signs (24Hr): Vital Signs - 24 hr 08/23/24 08:00 08/23/24 20:00 Temperature 97.3 F 98.4 F Pulse Rate 88 82 Respiratory Rate 14 16 Blood Pressure 98/51 L 98/58 L Pulse Oximetry 94 94 Oxygen Delivery Method Room Air Room Air BMI result Body Mass Index 27.1 Labs 08/16/24 07:16 08/16/24 05:30 Medications Medications Current Medications Acetaminophen (Acetaminophen 325 Mg Tablet) 650 mg PO Q6H PRN PRN Reason: Headache/Pain, Scale 1-10 Last Admin: 08/23/24 18:10 Dose: 650 mg Al Hydroxide/Mg Hydroxide (Magnesium Hydrox/Alum Hydrox 30 Ml Oral.Susp) 30 ml PO Q6H PRN PRN Reason: Heartburn/Nausea Last Admin: 08/17/24 21:50 Dose: 30 ml Albuterol/Ipratropium (Albuterol/Iprat 2.5/0.5mg 3 Ml Ampul.Neb) 3 ml INHALE QID PRN PRN Reason: Congestion Aripiprazole (Aripiprazole 5 Mg Tablet) 5 mg PO DAILY [facility] Last Admin: 08/23/24 12:20 Dose: 5 mg Clozapine (Clozapine 25 Mg Tablet) 125 mg PO DAILY@1999 [facility] Last Admin: 08/23/24 20:47 Dose: 125 mg Divalproex Sodium (Divalproex Sodium 250 Mg Tablet.) 250 mg PO BID [facility] Last Admin: 08/23/24 20:49 Dose: 250 mg Ferrous Sulfate (Ferrous Sulfate 324 Mg Tablet.) 324 mg PO DAILY [facility] Last Admin: 08/23/24 10:07 Dose: 324 mg Finasteride (Finasteride 5 Mg Tablet) 5 mg PO DAILY [facility] Last Admin: 08/23/24 10:08 Dose: 5 mg Lorazepam (Lorazepam 0.5 Mg Tablet) 0.5 mg PO TID [facility] Last Admin: 08/23/24 20:50 Dose: 0.5 mg Magnesium Hydroxide (Milk Of Magnesia 30 Ml Oral.Susp) 30 ml PO DAILY PRN PRN Reason: Constipation Nitrofurantoin Macrocrystals (Nitrofurantoin Monohyd/M-Cryst 100 Mg Capsule) 100 mg PO BID [facility] Last Admin: 08/23/24 20:49 Dose: 100 mg Olanzapine (Olanzapine Odt 10 Mg Tab.Rapdis) 5 mg TRANSLINGU BID PRN PRN Reason: agitation Last Admin: 08/19/24 20:51 Dose: 5 mg Pramipexole Dihydrochloride (Pramipexole Di-Hcl 0.25 Mg Tablet) 0.25 mg PO TID [facility] Last Admin: 08/23/24 20:49 Dose: 0.25 mg Tamsulosin HCl (Tamsulosin Hcl 0.4 Mg Capsule) 0.8 mg PO BEDTIME [facility] Last Admin: 08/23/24 20:48 Dose: 0.8 mg Allergies Allergies Allergy/AdvReac Type Severity Reaction Status Date / Time No Known Allergies [NKA] Allergy Unknown NONE Verified 06/19/24 20:43 Assessment & Plan Assessment & Plan (1) Schizoaffective disorder: Status: Acute Code(s): F25.9 - Schizoaffective disorder, unspecified (2) UTI (urinary tract infection): Status: Acute Code(s): N39.0 - Urinary tract infection, site not specified (3) Catatonia: Status: Acute Code(s): F06.1 - Catatonic disorder due to known physiological condition Plan Schizoaffective disorder Continue treatment per psychiatry team. Status post ECT treatment today Urinary tract infection Antibiotics changed to Macrobid due to sensitivities Leukocytosis resolved Tolerating antibiotics without issue Cough and congestion PRN updraft nebulizers. Continue use of respiratory device Continue to encourage mobility and out of bed for meals. 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 May need to reconsider ECT however patient had response but after extended period of time was at times not maintained. Patient difficulty tolerating ECT from a respiratory concern in the past. Depakote also use for augmentation Patient educated on: diagnosis and medication risk/benefits Informed Consent: understands Reason for continued inpatient stay Substantial Risk for: inability to function, rapid decompensation and med/psych decompensation Time Spent With Patient Time: Total time managing care of this patient today _30___ minutes.
[2024-08-24 08:00] VITALS: BP 129/61; PULSE 98; RESP 16; TEMP 36.6; O2SAT 96
[2024-08-24] MEDS: Ferrous Sulfate 324 MG TABLET.DR PO (10:27)
--- NOTE | 2024-08-24 12:34 | P.PNPSI_ITS ---
Subjective Subjective Date of Service: 08/24/24 Reason For Visit: catatonia Subjective Notes: Conditional Voluntary Interim History: Patient was seen and discussed in rounds today. Records and plans were reviewed. He continues to be isolative, somewhat catatonic. No complaints. No dangerous behaviors or behavioral issues. No changes were made Review of Systems Review of Systems Yes Unobtainable due to mental status Mental Status Exam Mental Status Exam Narrative: In today's visit he was lying in bed. Soft-spoken, scans speech. No eye contact. No acute signs observed. He could not be assessed fully. Diagnostics Vital Signs (24Hr): Vital Signs - 24 hr 08/23/24 20:00 08/24/24 08:00 Temperature 98.4 F 97.9 F Pulse Rate 82 98 Respiratory Rate 16 16 Blood Pressure 98/58 L 129/61 Pulse Oximetry 94 96 Oxygen Delivery Method Room Air Room Air BMI result Body Mass Index 27.1 Labs 08/16/24 07:16 08/16/24 05:30 Medications Medications Current Medications Acetaminophen (Acetaminophen 325 Mg Tablet) 650 mg PO Q6H PRN PRN Reason: Headache/Pain, Scale 1-10 Last Admin: 08/23/24 18:10 Dose: 650 mg Al Hydroxide/Mg Hydroxide (Magnesium Hydrox/Alum Hydrox 30 Ml Oral.Susp) 30 ml PO Q6H PRN PRN Reason: Heartburn/Nausea Last Admin: 08/17/24 21:50 Dose: 30 ml Albuterol/Ipratropium (Albuterol/Iprat 2.5/0.5mg 3 Ml Ampul.Neb) 3 ml INHALE QID PRN PRN Reason: Congestion Aripiprazole (Aripiprazole 5 Mg Tablet) 5 mg PO DAILY [facility] Last Admin: 08/24/24 10:27 Dose: 5 mg Clozapine (Clozapine 25 Mg Tablet) 125 mg PO DAILY@1999 [facility] Last Admin: 08/23/24 20:47 Dose: 125 mg Divalproex Sodium (Divalproex Sodium 250 Mg Tablet.) 250 mg PO BID [facility] Last Admin: 08/24/24 10:27 Dose: 250 mg Ferrous Sulfate (Ferrous Sulfate 324 Mg Tablet.) 324 mg PO DAILY [facility] Last Admin: 08/24/24 10:27 Dose: 324 mg Finasteride (Finasteride 5 Mg Tablet) 5 mg PO DAILY [facility] Last Admin: 08/24/24 10:27 Dose: 5 mg Lorazepam (Lorazepam 0.5 Mg Tablet) 0.5 mg PO TID [facility] Last Admin: 08/24/24 10:27 Dose: 0.5 mg Magnesium Hydroxide (Milk Of Magnesia 30 Ml Oral.Susp) 30 ml PO DAILY PRN PRN Reason: Constipation Nitrofurantoin Macrocrystals (Nitrofurantoin Monohyd/M-Cryst 100 Mg Capsule) 100 mg PO BID [facility] Last Admin: 08/24/24 10:27 Dose: 100 mg Olanzapine (Olanzapine Odt 10 Mg Tab.Rapdis) 5 mg TRANSLINGU BID PRN PRN Reason: agitation Last Admin: 08/19/24 20:51 Dose: 5 mg Pramipexole Dihydrochloride (Pramipexole Di-Hcl 0.25 Mg Tablet) 0.25 mg PO TID [facility] Last Admin: 08/24/24 10:27 Dose: 0.25 mg Tamsulosin HCl (Tamsulosin Hcl 0.4 Mg Capsule) 0.8 mg PO BEDTIME [facility] Last Admin: 08/23/24 20:48 Dose: 0.8 mg Allergies Allergies Allergy/AdvReac Type Severity Reaction Status Date / Time No Known Allergies [NKA] Allergy Unknown NONE Verified 06/19/24 20:43 Assessment & Plan Assessment & Plan (1) Schizoaffective disorder: Status: Acute Code(s): F25.9 - Schizoaffective disorder, unspecified (2) UTI (urinary tract infection): Status: Acute Code(s): N39.0 - Urinary tract infection, site not specified (3) Catatonia: Status: Acute Code(s): F06.1 - Catatonic disorder due to known physiological condition Plan Schizoaffective disorder Continue treatment per psychiatry team. Status post ECT treatment today Urinary tract infection Antibiotics changed to Macrobid due to sensitivities Leukocytosis resolved Tolerating antibiotics without issue Cough and congestion PRN updraft nebulizers. Continue use of respiratory device Continue to encourage mobility and out of bed for meals. 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 May need to reconsider ECT however patient had response but after extended period of time was at times not maintained. Patient difficulty tolerating ECT from a respiratory concern in the past. Depakote also use for augmentation 08/24: Continue current regimen and plans. Reason for continued inpatient stay Substantial Risk for: inability to function Time Spent With Patient Time: Total time managing care of this patient today ____ minutes.
[2024-08-24 20:00] VITALS: BP 125/62; PULSE 100; RESP 16; TEMP 36.3; O2SAT 95
[2024-08-24] MEDS: OLANZapine ODT 10 MG TAB.RAPDIS 5 MG TRANSLINGU (20:56)
[2024-08-25 08:00] VITALS: BP 128/69; PULSE 96; RESP 16; TEMP 36.1; O2SAT 97
[2024-08-25] MEDS: Ferrous Sulfate 324 MG TABLET.DR PO (08:11)
--- NOTE | 2024-08-25 11:17 | P.PNPSI_ITS ---
Subjective Subjective Date of Service: 08/25/24 Reason For Visit: catatonia Subjective Notes: Conditional Voluntary Interim History: Patient was seen and discussed in rounds today. Records and plans were reviewed. He is mostly on his bed, catatonic. No changes reported by the nurses. No behavioral issues. Limited movements and will to no response. No dangerous behaviors. Review of Systems Review of Systems Yes Unobtainable due to mental status Mental Status Exam Mental Status Exam Narrative: Patient was lying in bed. He did open his eyes but no verbal response. No physical movements. Diagnostics Vital Signs (24Hr): Vital Signs - 24 hr 08/24/24 20:00 08/25/24 08:00 Temperature 97.3 F 97 F Pulse Rate 100 96 Respiratory Rate 16 16 Blood Pressure 125/62 128/69 Pulse Oximetry 95 97 Oxygen Delivery Method Room Air Room Air BMI result Body Mass Index 27.1 Labs 08/16/24 07:16 08/16/24 05:30 Medications Medications Current Medications Acetaminophen (Acetaminophen 325 Mg Tablet) 650 mg PO Q6H PRN PRN Reason: Headache/Pain, Scale 1-10 Last Admin: 08/23/24 18:10 Dose: 650 mg Al Hydroxide/Mg Hydroxide (Magnesium Hydrox/Alum Hydrox 30 Ml Oral.Susp) 30 ml PO Q6H PRN PRN Reason: Heartburn/Nausea Last Admin: 08/17/24 21:50 Dose: 30 ml Albuterol/Ipratropium (Albuterol/Iprat 2.5/0.5mg 3 Ml Ampul.Neb) 3 ml INHALE QID PRN PRN Reason: Congestion Aripiprazole (Aripiprazole 5 Mg Tablet) 5 mg PO DAILY [facility] Last Admin: 08/25/24 08:11 Dose: 5 mg Clozapine (Clozapine 25 Mg Tablet) 125 mg PO DAILY@1999 [facility] Last Admin: 08/24/24 20:54 Dose: 125 mg Divalproex Sodium (Divalproex Sodium 250 Mg Tablet.) 250 mg PO BID [facility] Last Admin: 08/25/24 08:11 Dose: 250 mg Ferrous Sulfate (Ferrous Sulfate 324 Mg Tablet.) 324 mg PO DAILY [facility] Last Admin: 08/25/24 08:11 Dose: 324 mg Finasteride (Finasteride 5 Mg Tablet) 5 mg PO DAILY [facility] Last Admin: 08/25/24 08:10 Dose: 5 mg Lorazepam (Lorazepam 0.5 Mg Tablet) 0.5 mg PO TID [facility] Last Admin: 08/25/24 08:11 Dose: 0.5 mg Magnesium Hydroxide (Milk Of Magnesia 30 Ml Oral.Susp) 30 ml PO DAILY PRN PRN Reason: Constipation Nitrofurantoin Macrocrystals (Nitrofurantoin Monohyd/M-Cryst 100 Mg Capsule) 100 mg PO BID [facility] Last Admin: 08/25/24 08:11 Dose: 100 mg Olanzapine (Olanzapine Odt 10 Mg Tab.Rapdis) 5 mg TRANSLINGU BID PRN PRN Reason: agitation Last Admin: 08/24/24 20:56 Dose: 5 mg Pramipexole Dihydrochloride (Pramipexole Di-Hcl 0.25 Mg Tablet) 0.25 mg PO TID [facility] Last Admin: 08/25/24 08:11 Dose: 0.25 mg Tamsulosin HCl (Tamsulosin Hcl 0.4 Mg Capsule) 0.8 mg PO BEDTIME [facility] Last Admin: 08/24/24 20:54 Dose: 0.8 mg Allergies Allergies Allergy/AdvReac Type Severity Reaction Status Date / Time No Known Allergies [NKA] Allergy Unknown NONE Verified 06/19/24 20:43 Assessment & Plan Assessment & Plan (1) Schizoaffective disorder: Status: Acute Code(s): F25.9 - Schizoaffective disorder, unspecified (2) UTI (urinary tract infection): Status: Acute Code(s): N39.0 - Urinary tract infection, site not specified (3) Catatonia: Status: Acute Code(s): F06.1 - Catatonic disorder due to known physiological condition Plan Schizoaffective disorder Continue treatment per psychiatry team. Status post ECT treatment today Urinary tract infection Antibiotics changed to Macrobid due to sensitivities Leukocytosis resolved Tolerating antibiotics without issue Cough and congestion PRN updraft nebulizers. Continue use of respiratory device Continue to encourage mobility and out of bed for meals. 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 May need to reconsider ECT however patient had response but after extended period of time was at times not maintained. Patient difficulty tolerating ECT from a respiratory concern in the past. Depakote also use for augmentation 08/24: Continue current regimen and plans. 08/25: Continue current regimen and plans. Reason for continued inpatient stay Substantial Risk for: inability to function Time Spent With Patient Time: Total time managing care of this patient today ____ minutes.
[2024-08-25 20:00] VITALS: BP 111/63; PULSE 90; TEMP 36.9; O2SAT 91
[2024-08-26 07:57] LABS: Alanine Aminotransferase 6 U/L (0-40); Albumin Level 3.4 g/dL (3.5-5.0); Alkaline Phosphatase 49 U/L (39-117); Anion Gap 12 (12-20); Aspartate Amino Transferase 15 U/L (5-37); Blood Urea Nitrogen 21 mg/dL (9-16); Calcium 8.4 mg/dL (8.4-10.2); Carbon Dioxide 28 mmol/L (22-29); Chloride 106 mmol/L (96-108); Creatinine Clr Calc Pharmacy 66.3; Estimated Glomerular Filt Rate > 60; Potassium 3.9 mmol/L (3.3-5.1); Sodium 142 mmol/L (135-145); Total Protein 6.1 g/dL (6.5-8.0)
[2024-08-26 12:21] VITALS: BP 100/50; PULSE 90; RESP 15; TEMP 36.8; O2SAT 94
[2024-08-26] MEDS: Ferrous Sulfate 324 MG TABLET.DR PO (12:23)
[2024-08-26 20:00] VITALS: BP 109/57; PULSE 88; RESP 18; TEMP 36.8; O2SAT 95
--- NOTE | 2024-08-26 21:29 | PC.NURSE ---
Assumed care of this patient at 19:30. Patient is calm, cooperative, isolating in room. Med-compliant, tolerating without any issues. Denies SI/HI. 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 No acute complaints offered. No distress noted. VSS. Handoff report given at 21:30.
--- NOTE | 2024-08-26 22:11 | P.PNPSI_ITS ---
Subjective Subjective Date of Service: 09/25/24 Reason For Visit: catatonia Subjective Notes: Conditional Voluntary Healthcare Proxy: Yes Interim History: Pt flat somewhat fatigued improvement with ambulation still requires 1.1 . Better movement with mirapex. noted. Eating drinking comes out for food. Medication Compliance: Yes Mental Status Exam Mental Status Exam Narrative: Patient seen lying in bed some decrease in movement does respond to name mood somewhat irritable reactive some response to verbal questioning denies hallucinations somewhat less labile and aggressive was able to stand up and walk with difficulty. Improved movement dx Diagnostics Vital Signs (24Hr): Vital Signs - 24 hr 08/26/24 12:21 08/26/24 20:00 Temperature 98.2 F 98.2 F Pulse Rate 90 88 Respiratory Rate 15 18 Blood Pressure 100/50 L 109/57 L Pulse Oximetry 94 95 Oxygen Delivery Method Room Air Room Air BMI result Body Mass Index 27.1 Labs 08/16/24 07:16 08/26/24 07:26 Labs: Laboratory Results - last 48 hr 08/25/24 08/26/24 11:30 07:26 Hold Purple Top SEE NOTE Sodium 142 Potassium 3.9 Chloride 106 Carbon Dioxide 28 Anion Gap 12 BUN 21 H Creatinine 1.17 Estim Creat Clear Calc 66.3 Estimated GFR > 60 Fasting Glucose 91 Calcium 8.4 Total Bilirubin 0.2 AST 15 ALT 6 Alkaline Phosphatase 49 Total Protein 6.1 L Albumin 3.4 L Valproic Acid 18.0 L Medications Medications Current Medications Acetaminophen (Acetaminophen 325 Mg Tablet) 650 mg PO Q6H PRN PRN Reason: Headache/Pain, Scale 1-10 Last Admin: 08/23/24 18:10 Dose: 650 mg Al Hydroxide/Mg Hydroxide (Magnesium Hydrox/Alum Hydrox 30 Ml Oral.Susp) 30 ml PO Q6H PRN PRN Reason: Heartburn/Nausea Last Admin: 08/17/24 21:50 Dose: 30 ml Albuterol/Ipratropium (Albuterol/Iprat 2.5/0.5mg 3 Ml Ampul.Neb) 3 ml INHALE QID PRN PRN Reason: SOB/wheezing Aripiprazole (Aripiprazole 5 Mg Tablet) 5 mg PO DAILY [facility] Last Admin: 08/26/24 12:23 Dose: 5 mg Clozapine (Clozapine 100 Mg Tablet) 150 mg PO DAILY@1999 [facility] Last Admin: 08/26/24 20:18 Dose: 150 mg Divalproex Sodium (Divalproex Sodium 250 Mg Tablet.Dr) 250 mg PO BID [facility] Last Admin: 08/26/24 20:19 Dose: 250 mg Ferrous Sulfate (Ferrous Sulfate 324 Mg Tablet.Dr) 324 mg PO DAILY [facility] Last Admin: 08/26/24 12:23 Dose: 324 mg Finasteride (Finasteride 5 Mg Tablet) 5 mg PO DAILY [facility] Last Admin: 08/26/24 12:23 Dose: 5 mg Ketamine HCl 500 mg/ Sodium (Chloride) 21.213 mls @ 21.213 mls/hr IV .Q1H [facility]; Protocol Stop: 08/27/24 08:29 Lorazepam (Lorazepam 0.5 Mg Tablet) 0.5 mg PO TID [facility] Last Admin: 08/26/24 20:18 Dose: 0.5 mg Magnesium Hydroxide (Milk Of Magnesia 30 Ml Oral.Susp) 30 ml PO DAILY PRN PRN Reason: Constipation Olanzapine (Olanzapine Odt 10 Mg Tab.Rapdis) 5 mg TRANSLINGU BID PRN PRN Reason: agitation Last Admin: 08/24/24 20:56 Dose: 5 mg Pramipexole Dihydrochloride (Pramipexole Di-Hcl 0.25 Mg Tablet) 0.25 mg PO TID [facility] Last Admin: 08/26/24 20:19 Dose: 0.25 mg Tamsulosin HCl (Tamsulosin Hcl 0.4 Mg Capsule) 0.8 mg PO BEDTIME [facility] Last Admin: 08/26/24 20:18 Dose: 0.8 mg Allergies Allergies Allergy/AdvReac Type Severity Reaction Status Date / Time No Known Allergies [NKA] Allergy Unknown NONE Verified 06/19/24 20:43 Assessment & Plan Assessment & Plan (1) Schizoaffective disorder: Status: Acute Code(s): F25.9 - Schizoaffective disorder, unspecified (2) UTI (urinary tract infection): Status: Acute Code(s): N39.0 - Urinary tract infection, site not specified (3) Catatonia: Status: Acute Code(s): F06.1 - Catatonic disorder due to known physiological condition Plan Schizoaffective disorder Continue treatment per psychiatry team. Status post ECT treatment today Urinary tract infection Antibiotics changed to Macrobid due to sensitivities Leukocytosis resolved Tolerating antibiotics without issue Cough and congestion PRN updraft nebulizers. Continue use of respiratory device Continue to encourage mobility and out of bed for meals. 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 May need to reconsider ECT however patient had response but after extended period of time was at times not maintained. Patient difficulty tolerating ECT from a respiratory concern in the past. Depakote also use for augmentation 08/24: Continue current regimen and plans. 08/25: Continue current regimen and plans. 08/26/24 Pt gradually imptroving cont ketamine pt dopamine agonist limited response to ect Informed Consent: does not understand Reason for continued inpatient stay Substantial Risk for: inability to function, rapid decompensation and med/psych decompensation Time Spent With Patient Time: Total time managing care of this patient today ____ minutes.
[2024-08-27] VITALS (13 sets, daily range): BP systolic 103–125; BP diastolic 50–72; PULSE 81–94; RESP 18–20; TEMP 36.1–37.3; O2SAT 92–98
[2024-08-27] MEDS: Ketamine HCl 500 MG in 0.9 % Sodium Chloride 250 ML 21.21 MG IV (08:10)
[2024-08-27 08:35] LABS: Neut%MD 53.6 %; WBCANC 4.6 X10*3/uL
[2024-08-27] MEDS: Ferrous Sulfate 324 MG TABLET.DR PO (10:39)
--- NOTE | 2024-08-27 14:06 | P.PNPSI_ITS ---
Subjective Subjective Date of Service: 08/27/24 Reason For Visit: catatonia Healthcare Proxy: Yes Interim History: Patient seen psychiatric follow-up. Patient seems to be doing somewhat better on dopamine agonist. Seems somewhat sedated during the day will change Abilify to the evening change Depakote to the evening Has been on one-to-one because of significant fall risk and impulsivity Mental Status Exam Mental Status Exam Narrative: Patient seen lying in bed some improvement in movement does respond to name mood somewhat irritable reactive at times .some response to verbal questioning with delay denies hallucinations somewhat less labile and aggressive was able to stand up and walk with assistance Improved movement dx Diagnostics Vital Signs (24Hr): Vital Signs - 24 hr 08/26/24 20:00 08/27/24 07:40 08/27/24 08:00 Temperature 98.2 F 98.6 F 98.2 F Pulse Rate 88 81 85 Respiratory Rate 18 20 18 Blood Pressure 109/57 L 104/56 L 125/65 Pulse Oximetry 95 93 93 Oxygen Delivery Method Room Air Room Air Room Air 08/27/24 08:10 08/27/24 08:25 08/27/24 08:40 Temperature Pulse Rate 84 83 82 Respiratory Rate 20 20 20 Blood Pressure 120/62 125/72 123/68 Pulse Oximetry 94 93 92 Oxygen Delivery Method Room Air Room Air Room Air 08/27/24 08:55 08/27/24 09:10 08/27/24 09:25 Temperature 97 F Pulse Rate 84 84 84 Respiratory Rate 18 18 18 Blood Pressure 104/50 L 107/54 L 103/57 L Pulse Oximetry 95 93 93 Oxygen Delivery Method Room Air Room Air Room Air 08/27/24 09:40 08/27/24 09:55 08/27/24 10:10 Temperature 97.1 F Pulse Rate 84 82 83 Respiratory Rate 18 18 18 Blood Pressure 114/58 L 114/57 L 119/54 L Pulse Oximetry 96 96 98 Oxygen Delivery Method Room Air Room Air Room Air 08/27/24 10:30 Temperature 99.0 F Pulse Rate 83 Respiratory Rate 20 Blood Pressure 108/56 L Pulse Oximetry 96 Oxygen Delivery Method Room Air BMI result Body Mass Index 27.1 Labs 08/16/24 07:16 08/26/24 07:26 Labs: Laboratory Results - last 48 hr 08/26/24 08/27/24 07:26 07:53 Absolute Neuts (auto) 2.5 Sodium 142 Potassium 3.9 Chloride 106 Carbon Dioxide 28 Anion Gap 12 BUN 21 H Creatinine 1.17 Estim Creat Clear Calc 66.3 Estimated GFR > 60 Fasting Glucose 91 Calcium 8.4 Total Bilirubin 0.2 AST 15 ALT 6 Alkaline Phosphatase 49 Total Protein 6.1 L Albumin 3.4 L Valproic Acid 18.0 L Medications Medications Current Medications Acetaminophen (Acetaminophen 325 Mg Tablet) 650 mg PO Q6H PRN PRN Reason: Headache/Pain, Scale 1-10 Last Admin: 08/23/24 18:10 Dose: 650 mg Al Hydroxide/Mg Hydroxide (Magnesium Hydrox/Alum Hydrox 30 Ml Oral.Susp) 30 ml PO Q6H PRN PRN Reason: Heartburn/Nausea Last Admin: 08/17/24 21:50 Dose: 30 ml Albuterol/Ipratropium (Albuterol/Iprat 2.5/0.5mg 3 Ml Ampul.Neb) 3 ml INHALE QID PRN PRN Reason: SOB/wheezing Aripiprazole (Aripiprazole 5 Mg Tablet) 5 mg PO DAILY [facility] Last Admin: 08/27/24 10:40 Dose: 5 mg Clozapine (Clozapine 100 Mg Tablet) 150 mg PO DAILY@1999 [facility] Last Admin: 08/26/24 20:18 Dose: 150 mg Ferrous Sulfate (Ferrous Sulfate 324 Mg Tablet.Dr) 324 mg PO DAILY [facility] Last Admin: 08/27/24 10:39 Dose: 324 mg Finasteride (Finasteride 5 Mg Tablet) 5 mg PO DAILY [facility] Last Admin: 08/27/24 10:38 Dose: 5 mg Magnesium Hydroxide (Milk Of Magnesia 30 Ml Oral.Susp) 30 ml PO DAILY PRN PRN Reason: Constipation Olanzapine (Olanzapine Odt 10 Mg Tab.Rapdis) 5 mg TRANSLINGU BID PRN PRN Reason: agitation Last Admin: 08/24/24 20:56 Dose: 5 mg Pramipexole Dihydrochloride (Pramipexole Di-Hcl 0.25 Mg Tablet) 0.25 mg PO TID [facility] Last Admin: 08/27/24 10:40 Dose: 0.25 mg Tamsulosin HCl (Tamsulosin Hcl 0.4 Mg Capsule) 0.8 mg PO BEDTIME [facility] Last Admin: 08/26/24 20:18 Dose: 0.8 mg Allergies Allergies Allergy/AdvReac Type Severity Reaction Status Date / Time No Known Allergies [NKA] Allergy Unknown NONE Verified 06/19/24 20:43 Assessment & Plan Assessment & Plan (1) Schizoaffective disorder: Status: Acute Code(s): F25.9 - Schizoaffective disorder, unspecified (2) UTI (urinary tract infection): Status: Acute Code(s): N39.0 - Urinary tract infection, site not specified (3) Catatonia: Status: Acute Code(s): F06.1 - Catatonic disorder due to known physiological condition Plan Schizoaffective disorder Continue treatment per psychiatry team. Status post ECT treatment today Urinary tract infection Antibiotics changed to Macrobid due to sensitivities Leukocytosis resolved Tolerating antibiotics without issue Cough and congestion PRN updraft nebulizers. Continue use of respiratory device Continue to encourage mobility and out of bed for meals. 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 May need to reconsider ECT however patient had response but after extended period of time was at times not maintained. Patient difficulty tolerating ECT from a respiratory concern in the past. Depakote also use for augmentation 08/24: Continue current regimen and plans. 08/25: Continue current regimen and plans. 08/26/24 Pt gradually imptroving cont ketamine pt dopamine agonist limited response to ect 08/27/2024 Abilify added to augmentation with clozapine at recommendation of catatonia algorithm dopamine agonist also added as part of both catatonia algorithm and Parkinson own and symptoms prior to use of Abilify. Change Abilify to evening monitor for ways worsening gait with Abilify monitor for over-sedation with clozapine Continue ketamine infusion encourage mobilization Informed Consent: does not understand Reason for continued inpatient stay Substantial Risk for: inability to function, rapid decompensation and med/psych decompensation Time Spent With Patient Time: Total time managing care of this patient today ____ minutes.
[2024-08-27] MEDS: Divalproex Sodium Sprinkles 125 MG CAP.DR.SPR 500 MG PO (20:39)
[2024-08-28] MEDS: Ferrous Sulfate 324 MG TABLET.DR PO (07:54)
[2024-08-28 08:00] VITALS: BP 110/58; PULSE 89; TEMP 36.8; O2SAT 96
[2024-08-28 09:48] VITALS: RESP 18
--- NOTE | 2024-08-28 15:32 | HO.PSYCHPN ---
Subjective Subjective Date of Service: 08/28/24 Reason For Visit: catatonia Subjective Notes: Conditional Voluntary Healthcare Proxy: Yes Interim History: Pt has been more depressed irritable reactive at times remains on 1-1 for safety needs encouragement to get up Medication Compliance: Yes Attending Groups: No Review of Systems Acute medical concerns: Yes ongoing PT Medical Review of Systems: unchanged Mental Status Exam Mental Status Exam Narrative: Patient seen lying in bed some improvement in movement does respond to name mood somewhat irritable reactive at times .some response to verbal questioning with delay denies hallucinations somewhat labile irritable and aggressive needs assistance to walk Diagnostics Vital Signs (24Hr): Vital Signs - 24 hr 08/27/24 20:00 08/28/24 08:00 08/28/24 09:48 Temperature 99.1 F 98.2 F Pulse Rate 94 89 Respiratory Rate 18 18 Blood Pressure 118/59 L 110/58 L Pulse Oximetry 94 96 Oxygen Delivery Method Room Air Room Air BMI result Body Mass Index 27.1 Labs 08/16/24 07:16 08/26/24 07:26 Labs: Laboratory Results - last 48 hr 08/27/24 07:53 Absolute Neuts (auto) 2.5 Medications Medications Current Medications Acetaminophen (Acetaminophen 325 Mg Tablet) 650 mg PO Q6H PRN PRN Reason: Headache/Pain, Scale 1-10 Last Admin: 08/23/24 18:10 Dose: 650 mg Al Hydroxide/Mg Hydroxide (Magnesium Hydrox/Alum Hydrox 30 Ml Oral.Susp) 30 ml PO Q6H PRN PRN Reason: Heartburn/Nausea Last Admin: 08/17/24 21:50 Dose: 30 ml Albuterol/Ipratropium (Albuterol/Iprat 2.5/0.5mg 3 Ml Ampul.Neb) 3 ml INHALE QID PRN PRN Reason: SOB/wheezing Aripiprazole (Aripiprazole 5 Mg Tablet) 5 mg PO DAILY@1730 [facility] Clozapine (Clozapine 100 Mg Tablet) 150 mg PO DAILY@1999 [facility] Last Admin: 08/27/24 20:39 Dose: 150 mg Divalproex Sodium (Divalproex Sodium Sprinkles 125 Mg Cap.) 500 mg PO BEDTIME [facility] Last Admin: 08/27/24 20:39 Dose: 500 mg Ferrous Sulfate (Ferrous Sulfate 324 Mg Tablet.) 324 mg PO DAILY [facility] Last Admin: 08/28/24 07:54 Dose: 324 mg Finasteride (Finasteride 5 Mg Tablet) 5 mg PO DAILY [facility] Last Admin: 08/28/24 07:54 Dose: 5 mg Ketamine HCl 500 mg/ Sodium (Chloride) 255 mls @ 21.213 mls/hr IV .Q12H2M [facility]; Protocol Magnesium Hydroxide (Milk Of Magnesia 30 Ml Oral.Susp) 30 ml PO DAILY PRN PRN Reason: Constipation Olanzapine (Olanzapine Odt 10 Mg Tab.Rapdis) 5 mg TRANSLINGU BID PRN PRN Reason: agitation Last Admin: 08/24/24 20:56 Dose: 5 mg Pramipexole Dihydrochloride (Pramipexole Di-Hcl 0.25 Mg Tablet) 0.5 mg PO TID [facility] Last Admin: 08/28/24 15:29 Dose: 0.5 mg Tamsulosin HCl (Tamsulosin Hcl 0.4 Mg Capsule) 0.8 mg PO BEDTIME [facility] Last Admin: 08/27/24 20:39 Dose: 0.8 mg Allergies Allergies Allergy/AdvReac Type Severity Reaction Status Date / Time No Known Allergies [NKA] Allergy Unknown NONE Verified 06/19/24 20:43 Assessment & Plan Assessment & Plan (1) Schizoaffective disorder: Status: Acute Code(s): F25.9 - Schizoaffective disorder, unspecified (2) UTI (urinary tract infection): Status: Acute Code(s): N39.0 - Urinary tract infection, site not specified (3) Catatonia: Status: Acute Code(s): F06.1 - Catatonic disorder due to known physiological condition Plan Schizoaffective disorder Continue treatment per psychiatry team. Status post ECT treatment today Urinary tract infection Antibiotics changed to Macrobid due to sensitivities Leukocytosis resolved Tolerating antibiotics without issue Cough and congestion PRN updraft nebulizers. Continue use of respiratory device Continue to encourage mobility and out of bed for meals. 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 May need to reconsider ECT however patient had response but after extended period of time was at times not maintained. Patient difficulty tolerating ECT from a respiratory concern in the past. Depakote also use for augmentation 08/24: Continue current regimen and plans. 08/25: Continue current regimen and plans. 08/26/24 Pt gradually imptroving cont ketamine pt dopamine agonist limited response to ect 08/27/2024 Abilify added to augmentation with clozapine at recommendation of catatonia algorithm dopamine agonist also added as part of both catatonia algorithm and Parkinson own and symptoms prior to use of Abilify. Change Abilify to evening monitor for ways worsening gait with Abilify monitor for over-sedation with clozapine Continue ketamine infusion encourage mobilization 08/28/2024 restart sertraline abilify for augmentation dopamine for augmentation monitor for mood changes Informed Consent: further education needed Reason for continued inpatient stay Substantial Risk for: inability to function, rapid decompensation and med/psych decompensation Time Spent With Patient Time: Total time managing care of this patient today ____ minutes.
[2024-08-28 20:00] VITALS: BP 147/67; PULSE 88; RESP 18; TEMP 37; O2SAT 97
[2024-08-28] MEDS: Divalproex Sodium Sprinkles 125 MG CAP.DR.SPR 500 MG PO (21:02)
[2024-08-29] VITALS (12 sets, daily range): BP systolic 105–130; BP diastolic 56–75; PULSE 73–92; RESP 13–24; TEMP 36.3–37; O2SAT 94–96
[2024-08-29] MEDS: Ferrous Sulfate 324 MG TABLET.DR PO (09:49)
--- NOTE | 2024-08-29 10:54 | PC.NURSE ---
Patient became agitated with multiple tourniquet applications and looking for IV access, forcefully swinging and pushing away any physical contact from RN. unable to start IV. Dr Huerta aware. Infusion to be rescheduled later today of tomorrow.
[2024-08-29] MEDS: OLANZapine ODT 10 MG TAB.RAPDIS 5 MG TRANSLINGU (13:52)
[2024-08-29] MEDS: Ketamine HCl 500 MG in 0.9 % Sodium Chloride 250 ML 21.22 MG IV (16:10)
--- NOTE | 2024-08-29 16:15 | HO.MIDLINE_ITS ---
Midline Insertion MIDLINE INSERTION Diagnosis: poor venous access Indication: ketamine treatments Pertinent Labs: reviewed Technique: Using sterile technique including cap and mask, glove and drape, the left arm was prepped and draped in the usual sterile fashion of full barrier technique with G. Using ultrasound guidance, cephalic vein access was obtained .20G x8 cm [address]ide [address] Midline Catheter was positioned. The procedure was performed in 272. Ultrasound was used to document vein patency and for needle entry. A formal ultrasound picture was recorded. [employer] has released the line for use and it is currently dressed with a StatLock, Tegaderm, and CHG disc. Verification has been performed for blood return and line patency. Arm Circumference: 29.5cm Equipment: BARD POWERGLIDE ST midline catheter Catheter Type: 20G x 8cm nonPASV midline catheter Lot #: [id number]
--- NOTE | 2024-08-29 18:23 | PC.NURSE ---
Patient back from Ketamine treatment at 18:15. Pt is alert and oriented x4. Midline in left UE, site unremarkable. VS as follow: BP 137/63, P 80, T 98.0, O2sat 96% on RA. Benjamin denies pain, said he is feeling good, anxiety and depression at 5/10. Awaiting supper in a milieu at this time. Will continue to monitor.
[2024-08-29] MEDS: Divalproex Sodium Sprinkles 125 MG CAP.DR.SPR 500 MG PO (19:50)
[2024-08-29] MEDS: Heparin Sodium,Porcine Flush 50 UNITS, 0.9 % Sodium Chloride Flush 5 ML IVFLUSH (21:25)
--- NOTE | 2024-08-29 23:21 | P.PNPSI_ITS ---
Subjective Subjective Date of Service: 08/29/24 Reason For Visit: catatonia Subjective Notes: Conditional Voluntary Mental Status Exam Mental Status Exam Narrative: Patient seen lying in bed impulse control erratic some improvement in movement does respond to name mood somewhat irritable reactive at times no hallucinations Diagnostics Vital Signs (24Hr): Vital Signs - 24 hr 08/29/24 06:25 08/29/24 08:00 08/29/24 16:05 Temperature 98.6 F 97.5 F 97.4 F Pulse Rate 84 92 85 Respiratory Rate 18 18 16 Blood Pressure 118/58 L 130/67 124/72 Pulse Oximetry 94 96 96 Oxygen Delivery Method Room Air Room Air Room Air 08/29/24 16:20 08/29/24 16:35 08/29/24 16:50 Temperature Pulse Rate 82 82 81 Respiratory Rate 18 18 13 Blood Pressure 109/60 119/69 111/74 Pulse Oximetry 94 94 94 Oxygen Delivery Method Room Air Room Air Room Air 08/29/24 16:50 08/29/24 17:05 08/29/24 17:20 Temperature Pulse Rate 74 76 77 Respiratory Rate 23 H 22 H 24 H Blood Pressure 111/74 115/65 107/67 Pulse Oximetry 94 94 96 Oxygen Delivery Method Room Air Room Air Room Air 08/29/24 17:35 08/29/24 17:50 08/29/24 18:05 Temperature 98.3 F Pulse Rate 73 75 74 Respiratory Rate 21 H 20 21 H Blood Pressure 105/75 114/68 115/73 Pulse Oximetry 95 95 95 Oxygen Delivery Method Room Air Room Air Room Air 08/29/24 20:00 Temperature 98.2 F Pulse Rate 77 Respiratory Rate 18 Blood Pressure 118/56 L Pulse Oximetry 95 Oxygen Delivery Method Room Air BMI result Body Mass Index 27.1 Labs 08/30/24 07:36 08/26/24 07:26 Medications Medications Current Medications Acetaminophen (Acetaminophen 325 Mg Tablet) 650 mg PO Q6H PRN PRN Reason: Headache/Pain, Scale 1-10 Last Admin: 08/28/24 21:03 Dose: 650 mg Al Hydroxide/Mg Hydroxide (Magnesium Hydrox/Alum Hydrox 30 Ml Oral.Susp) 30 ml PO Q6H PRN PRN Reason: Heartburn/Nausea Last Admin: 08/17/24 21:50 Dose: 30 ml Albuterol/Ipratropium (Albuterol/Iprat 2.5/0.5mg 3 Ml Ampul.Neb) 3 ml INHALE QID PRN PRN Reason: SOB/wheezing Aripiprazole (Aripiprazole 5 Mg Tablet) 5 mg PO DAILY@1730 [facility] Last Admin: 08/28/24 17:49 Dose: 5 mg Clozapine (Clozapine 100 Mg Tablet) 150 mg PO DAILY@2000 [facility] Last Admin: 08/29/24 19:51 Dose: 150 mg Heparin Sodium (Porcine) 50 (units/ Sodium Chloride 5 ml) 0 units IVFLUSH TID [facility] Last Admin: 08/29/24 21:25 Dose: 50 unit Divalproex Sodium (Divalproex Sodium Sprinkles 125 Mg Cap.Dr.Spr) 500 mg PO BEDTIME [facility] Last Admin: 08/29/24 19:50 Dose: 500 mg Ferrous Sulfate (Ferrous Sulfate 324 Mg Tablet.) 324 mg PO DAILY [facility] Last Admin: 08/29/24 09:49 Dose: 324 mg Finasteride (Finasteride 5 Mg Tablet) 5 mg PO DAILY [facility] Last Admin: 08/29/24 09:49 Dose: 5 mg Magnesium Hydroxide (Milk Of Magnesia 30 Ml Oral.Susp) 30 ml PO DAILY PRN PRN Reason: Constipation Olanzapine (Olanzapine Odt 10 Mg Tab.Rapdis) 5 mg TRANSLINGU BID PRN PRN Reason: agitation Last Admin: 08/24/24 20:56 Dose: 5 mg Pramipexole Dihydrochloride (Pramipexole Di-Hcl 0.25 Mg Tablet) 0.5 mg PO TID [facility] Last Admin: 08/29/24 19:51 Dose: 0.5 mg Sertraline HCl (Sertraline Hcl 50 Mg Tablet) 50 mg PO DAILY [facility] Last Admin: 08/29/24 09:50 Dose: 50 mg Tamsulosin HCl (Tamsulosin Hcl 0.4 Mg Capsule) 0.8 mg PO BEDTIME [facility] Last Admin: 08/29/24 19:51 Dose: 0.8 mg Allergies Allergies Allergy/AdvReac Type Severity Reaction Status Date / Time No Known Allergies [NKA] Allergy Unknown NONE Verified 06/19/24 20:43 Assessment & Plan Assessment & Plan (1) Schizoaffective disorder: Status: Acute Code(s): F25.9 - Schizoaffective disorder, unspecified (2) UTI (urinary tract infection): Status: Acute Code(s): N39.0 - Urinary tract infection, site not specified (3) Catatonia: Status: Acute Code(s): F06.1 - Catatonic disorder due to known physiological condition Plan Schizoaffective disorder Continue treatment per psychiatry team. Status post ECT treatment today Urinary tract infection Antibiotics changed to Macrobid due to sensitivities Leukocytosis resolved Tolerating antibiotics without issue Cough and congestion PRN updraft nebulizers. Continue use of respiratory device Continue to encourage mobility and out of bed for meals. 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 May need to reconsider ECT however patient had response but after extended period of time was at times not maintained. Patient difficulty tolerating ECT from a respiratory concern in the past. Depakote also use for augmentation 08/24: Continue current regimen and plans. 08/25: Continue current regimen and plans. 08/26/24 Pt gradually imptroving cont ketamine pt dopamine agonist limited response to ect 08/27/2024 Abilify added to augmentation with clozapine at recommendation of catatonia algorithm dopamine agonist also added as part of both catatonia algorithm and Parkinson own and symptoms prior to use of Abilify. Change Abilify to evening monitor for ways worsening gait with Abilify monitor for over-sedation with clozapine Continue ketamine infusion encourage mobilization 08/28/2024 restart sertraline abilify for augmentation dopamine for augmentation monitor for mood changes 08/29/2024 Patient had difficult time today initially was aggressive with staff given Depakote olanzapine was then able to cooperate with getting intravenous treated with ketamine protocol Reason for continued inpatient stay Substantial Risk for: inability to function, rapid decompensation and med/psych decompensation Time Spent With Patient Time: Total time managing care of this patient today ____ minutes.
[2024-08-30 07:40] LABS: MANUAL DIFF FLAG NO
[2024-08-30 07:43] LABS: Hematocrit 32.0 % (42.0-52.0); Hemoglobin 10.5 g/dl (14.0-18.0); Imm Gran Abs Auto 0.06 X10*3/uL (0.00-0.03); Imm Gran Pct Auto 1.2 % (0.0-0.4); Lymphocytes Absolute Auto 1.8 X10*3/uL (1.2-4.9); Mean Corpuscular HGB Conc 32.8 g/dl (31.0-36.0); Mean Corpuscular Hemoglobin 28.4 pg (27.0-33.0); Mean Corpuscular Volume 86.5 fL (80.0-98.0); NRBC Abs Auto 0.000 X10*3/uL (0.0-0.012); NRBC Pct Auto 0.0 /100WBC (0.0-0.2); Platelet Count 182 X10*3/uL (160-400); Red Blood Count 3.70 X10*6/uL (4.60-5.80); White Blood Count 5.1 X10*3/uL (4.8-10.8)
[2024-08-30 07:49] LABS: Ammonia 46 umol/L (13-55)
[2024-08-30 08:00] VITALS: BP 124/64; PULSE 87; RESP 16; TEMP 36.4; O2SAT 94
[2024-08-30] MEDS: Ferrous Sulfate 324 MG TABLET.DR PO (08:53)
--- NOTE | 2024-08-30 10:12 | HO.PM.IMCN ---
History of Present Illness Data of Consult Service Date: 08/30/24 Primary Care Provider: Unknown Physician HPI Reason for consult: Follow up medical conditions 59-year-old male with PMH of schizoaffective disorder, parkinsonism, history of urinary retention, catatonia who previously lived alone in the community with services. Patient Admitted to the psych unit on 06/21/2024 for worsening catatonia. Course complicated by an ICU stay after he experienced an aspiration episode, he was intubated in June. From a medical standpoint he has improved in his now receiving routine ketamine treatments. Patient did not wish to have an IV inserted during his most recent ketamine treatment and became combative towards staff. Noted to have poor venous access. It was decided that a midline would be an appropriate intervention due to poor venous access and frequent IV insertions. Patient successfully had a non PASV midline inserted yesterday, line is protected by wraps. Patient is not showing evidence of pulling at the line. We will continue to monitor for evidence of infection. On exam he is in no apparent distress, answers some questions, denies being in any pain or having any shortness of breath. His lungs are clear. No cough and he has been voiding after his catheter was removed. Plan is to continue at least weekly ketamine treatments for treatment of his catatonia. Review of Systems Review of Systems: Limited due to mental status but he denies any SOB or Chest pain. [facility] Medical History (Updated 08/15/24 @ 13:00 by Isha Ferrari DNP) Tardive dyskinesia Hospital discharge follow-up Mild sleep apnea Nocturnal hypoxia Routine medical exam Joint inflammation of right hand and wrist Status post fall Adult general medical exam Screening for colon cancer Screening for prostate cancer Cough BPH (benign prostatic hyperplasia) Family History Mother Cancer Father Kidney agenesis Surgical History History of colonoscopy (~06/15/21) History of tooth extraction History of root canal procedure Social History Household Members: Family Housing: Apartment Are you a primary care professional to a significant other at home: No Do you presently have visiting nurse or other home services: Yes Unable to assess alcohol history related to: Unable to respond Alcohol intake: former Comment: 1:1 monitoring Patient Tobacco Use Status: Never used Tobacco e-Cigarette/Vaping Use: Never Used Second Hand Smoke Exposure: No Currently Displaying Signs/Symptoms of Drug Intoxication Withdrawal: No Have you been hit, kicked, punched, or otherwise hurt by someone within the past year? If so, by whom?: No Do you feel safe in your current relationship?: No Current Relationship Is there a partner from a previous relationship who is making you feel unsafe now?: No Are you made to feel afraid or neglected: No Advance Directives: No Advance Directives Information Provided: Yes Do you have thoughts of harming others: None Do you have a plan to hurt others: No Plan Recently lost weight without trying: Yes How much weight loss: 14-23 pounds Eating poorly because of decreased appetite: Yes Nutrition screen score: 5 Nutrition Risks: On aspiration precautions Poor oral hygiene: No service: No Current occupational status: employed Sexual orientation: Straight/Heterosexual Cognitive needs: No Hearing needs: No Vision needs: No Meds Allergies Allergy/AdvReac Type Severity Reaction Status Date / Time No Known Allergies [NKA] Allergy Unknown NONE Verified 06/19/24 20:43 Active Medications: Current Medications Acetaminophen (Acetaminophen 325 Mg Tablet) 650 mg PO Q6H PRN PRN Reason: Headache/Pain, Scale 1-10 Last Admin: 08/28/24 21:03 Dose: 650 mg Al Hydroxide/Mg Hydroxide (Magnesium Hydrox/Alum Hydrox 30 Ml Oral.Susp) 30 ml PO Q6H PRN PRN Reason: Heartburn/Nausea Last Admin: 08/17/24 21:50 Dose: 30 ml Albuterol/Ipratropium (Albuterol/Iprat 2.5/0.5mg 3 Ml Ampul.Neb) 3 ml INHALE QID PRN PRN Reason: SOB/wheezing Aripiprazole (Aripiprazole 5 Mg Tablet) 5 mg PO DAILY@1730 [facility] Last Admin: 08/28/24 17:49 Dose: 5 mg Clozapine (Clozapine 100 Mg Tablet) 150 mg PO DAILY@1999 [facility] Last Admin: 08/29/24 19:51 Dose: 150 mg Heparin Sodium (Porcine) 50 (units/ Sodium Chloride 5 ml) 0 units IVFLUSH TID [facility] Last Admin: 08/29/24 21:25 Dose: 50 unit Divalproex Sodium (Divalproex Sodium Sprinkles 125 Mg Cap.) 500 mg PO BEDTIME [facility] Last Admin: 08/29/24 19:50 Dose: 500 mg Ferrous Sulfate (Ferrous Sulfate 324 Mg Tablet.Dr) 324 mg PO DAILY [facility] Last Admin: 08/30/24 08:53 Dose: 324 mg Finasteride (Finasteride 5 Mg Tablet) 5 mg PO DAILY [facility] Last Admin: 08/30/24 08:52 Dose: 5 mg Magnesium Hydroxide (Milk Of Magnesia 30 Ml Oral.Susp) 30 ml PO DAILY PRN PRN Reason: Constipation Olanzapine (Olanzapine Odt 10 Mg Tab.Rapdis) 5 mg TRANSLINGU BID PRN PRN Reason: agitation Last Admin: 08/24/24 20:56 Dose: 5 mg Pramipexole Dihydrochloride (Pramipexole Di-Hcl 0.25 Mg Tablet) 0.5 mg PO TID [facility] Last Admin: 08/30/24 08:52 Dose: 0.5 mg Sertraline HCl (Sertraline Hcl 50 Mg Tablet) 50 mg PO DAILY [facility] Last Admin: 08/30/24 08:53 Dose: 50 mg Tamsulosin HCl (Tamsulosin Hcl 0.4 Mg Capsule) 0.8 mg PO BEDTIME [facility] Last Admin: 08/29/24 19:51 Dose: 0.8 mg Physical Exam Vital Signs and Narrative: Vital Signs: Last Vital Signs Temp 97.5 F 08/30/24 08:00 Pulse 87 08/30/24 08:00 Resp 16 08/30/24 08:00 BP 124/64 08/30/24 08:00 Pulse Ox 94 08/30/24 08:00 O2 Del Method Room Air 08/30/24 08:00 BMI result Body Mass Index 27.1 CONST: Alert and oriented, in NAD. Slow to respond, answers a few questions. HEENT: Normocephalic, atraumatic, MMM RESP: Lungs clear, RRR even and regular HEART:,RRR, S1, S2. N no edema GI:Abdomen Soft NT, ND. + BS times four :Deferred SKIN: Warm dry and intact. Midline in place left arm. NEURO:CN II-XII Intact bilaterally, Sensation intact. Speech clear PSYCH: Flat affect, slow to respond Results Labs 08/30/24 07:36 08/26/24 07:26 Labs: Laboratory Results - last 24 hr 08/30/24 07:36 MCV 86.5 MCH 28.4 MCHC 32.8 RDW 14.3 Plt Count 182 MPV 10.6 Immature Gran % (Auto) 1.2 H Neut % (Auto) 56.2 Lymph % (Auto) 34.4 [place] % (Auto) 8.0 Eos % (Auto) 0.0 Baso % (Auto) 0.2 Lymph # (Auto) 1.8 [place] # (Auto) 0.4 Eos # (Auto) 0.0 Baso # (Auto) 0.0 Abs Immat Gran (auto) 0.06 H Absolute Neuts (auto) 2.9 Absolute Nucleated RBC 0.000 Nucleated RBC % (auto) 0.0 Ammonia 46 Valproic Acid 25.4 L Assessment and Plan (1) Urinary retention with incomplete bladder emptying: Status: Acute (2) Benign prostate hyperplasia: Qualifiers: Lower urinary tract symptom presence: unspecified whether lower urinary tract symptoms present Qualified Code(s): N40.0 - Benign prostatic hyperplasia without lower urinary tract symptoms Status: Acute Plan Schizoaffective disorder/Parkinsonism/catatonia Treatment per psychiatric team Patient will continue with Ketamine infusions per order of psychiatry team Midline inserted for this purpose Continue to mobilize patient Urinary retention with BPH Patient is voiding without difficulty Continue to monitor for any evidence of retention Continue with Tamsulosin and Proscar, patient on maximum medical therapy Hypertension Stable off of medications
[2024-08-30] MEDS: Heparin Sodium,Porcine Flush 50 UNITS, 0.9 % Sodium Chloride Flush 5 ML IVFLUSH ×3 (15:22→20:38)
[2024-08-30 16:17] VITALS: BP 124/64; PULSE 87; O2SAT 94
[2024-08-30 20:00] VITALS: BP 112/69; PULSE 75; RESP 16; TEMP 36.8; O2SAT 97
[2024-08-30] MEDS: Divalproex Sodium Sprinkles 125 MG CAP.DR.SPR 500 MG PO (20:43)
--- NOTE | 2024-08-30 22:04 | HO.PSYCHPN ---
Subjective Subjective Date of Service: 08/30/24 Reason For Visit: catatonia Subjective Notes: Conditional Voluntary Interim History: Patient seen psychiatric follow-up. Patient's mood improved complains of sore throat at times but otherwise more verbal alert cooperative engaged with staff at times. No psychosis Mental Status Exam Mental Status Exam Narrative: Patient seen psychiatric follow-up. Wearing hospital garb. Patient calm alert response to questions. Some complaint of some cold symptoms was telling 1 of the mental health workers that look like people on TV show taxi much orozco affect not aggressive no psychosis impulse control improved Diagnostics Vital Signs (24Hr): Vital Signs - 24 hr 08/30/24 08:00 08/30/24 16:17 08/30/24 20:00 Temperature 97.5 F 98.2 F Pulse Rate 87 87 75 Respiratory Rate 16 16 Blood Pressure 124/64 124/64 112/69 Pulse Oximetry 94 94 97 Oxygen Delivery Method Room Air Room Air BMI result Body Mass Index 27.1 Labs 08/30/24 07:36 08/26/24 07:26 Labs: Laboratory Results - last 48 hr 08/30/24 07:36 WBC 5.1 RBC 3.70 L Hgb 10.5 L Hct 32.0 L MCV 86.5 MCH 28.4 MCHC 32.8 RDW 14.3 Plt Count 182 MPV 10.6 Immature Gran % (Auto) 1.2 H Neut % (Auto) 56.2 Lymph % (Auto) 34.4 [place] % (Auto) 8.0 Eos % (Auto) 0.0 Baso % (Auto) 0.2 Lymph # (Auto) 1.8 [place] # (Auto) 0.4 Eos # (Auto) 0.0 Baso # (Auto) 0.0 Abs Immat Gran (auto) 0.06 H Absolute Neuts (auto) 2.9 Absolute Nucleated RBC 0.000 Nucleated RBC % (auto) 0.0 Ammonia 46 Valproic Acid 25.4 L Medications Medications Current Medications Acetaminophen (Acetaminophen 325 Mg Tablet) 650 mg PO Q6H PRN PRN Reason: Headache/Pain, Scale 1-10 Last Admin: 08/28/24 21:03 Dose: 650 mg Al Hydroxide/Mg Hydroxide (Magnesium Hydrox/Alum Hydrox 30 Ml Oral.Susp) 30 ml PO Q6H PRN PRN Reason: Heartburn/Nausea Last Admin: 08/17/24 21:50 Dose: 30 ml Albuterol/Ipratropium (Albuterol/Iprat 2.5/0.5mg 3 Ml Ampul.Neb) 3 ml INHALE QID PRN PRN Reason: SOB/wheezing Aripiprazole (Aripiprazole 5 Mg Tablet) 5 mg PO DAILY@1730 [facility] Last Admin: 08/30/24 16:31 Dose: 5 mg Benzocaine (Throat Lozenge, Medicated Lozenge) 1 lozenge MUCOUS MEM Q2H PRN PRN Reason: Sore Throat Clozapine (Clozapine 100 Mg Tablet) 150 mg PO DAILY@1999 [facility] Last Admin: 08/30/24 20:43 Dose: 150 mg Heparin Sodium (Porcine) 50 (units/ Sodium Chloride 5 ml) 0 units IVFLUSH TID [facility] Last Admin: 08/30/24 20:38 Dose: 50 unit Divalproex Sodium (Divalproex Sodium Sprinkles 125 Mg Cap.Spr) 500 mg PO BEDTIME [facility] Last Admin: 08/30/24 20:43 Dose: 500 mg Ferrous Sulfate (Ferrous Sulfate 324 Mg Tablet.) 324 mg PO DAILY [facility] Last Admin: 08/30/24 08:53 Dose: 324 mg Finasteride (Finasteride 5 Mg Tablet) 5 mg PO DAILY [facility] Last Admin: 08/30/24 08:52 Dose: 5 mg Magnesium Hydroxide (Milk Of Magnesia 30 Ml Oral.Susp) 30 ml PO DAILY PRN PRN Reason: Constipation Olanzapine (Olanzapine Odt 10 Mg Tab.Rapdis) 5 mg TRANSLINGU BID PRN PRN Reason: agitation Last Admin: 08/24/24 20:56 Dose: 5 mg Pramipexole Dihydrochloride (Pramipexole Di-Hcl 0.25 Mg Tablet) 0.5 mg PO TID [facility] Last Admin: 08/30/24 20:43 Dose: 0.5 mg Sertraline HCl (Sertraline Hcl 50 Mg Tablet) 50 mg PO DAILY [facility] Last Admin: 08/30/24 08:53 Dose: 50 mg Tamsulosin HCl (Tamsulosin Hcl 0.4 Mg Capsule) 0.8 mg PO BEDTIME [facility] Last Admin: 08/30/24 20:43 Dose: 0.8 mg Allergies Allergies Allergy/AdvReac Type Severity Reaction Status Date / Time No Known Allergies [NKA] Allergy Unknown NONE Verified 06/19/24 20:43 Assessment & Plan Assessment & Plan (1) Schizoaffective disorder: Status: Acute Code(s): F25.9 - Schizoaffective disorder, unspecified (2) UTI (urinary tract infection): Status: Acute Code(s): N39.0 - Urinary tract infection, site not specified (3) Catatonia: Status: Acute Code(s): F06.1 - Catatonic disorder due to known physiological condition Plan Schizoaffective disorder Continue treatment per psychiatry team. Status post ECT treatment today Urinary tract infection Antibiotics changed to Macrobid due to sensitivities Leukocytosis resolved Tolerating antibiotics without issue Cough and congestion PRN updraft nebulizers. Continue use of respiratory device Continue to encourage mobility and out of bed for meals. 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 May need to reconsider ECT however patient had response but after extended period of time was at times not maintained. Patient difficulty tolerating ECT from a respiratory concern in the past. Depakote also use for augmentation 08/24: Continue current regimen and plans. 08/25: Continue current regimen and plans. 08/26/24 Pt gradually imptroving cont ketamine pt dopamine agonist limited response to ect 08/27/2024 Abilify added to augmentation with clozapine at recommendation of catatonia algorithm dopamine agonist also added as part of both catatonia algorithm and Parkinson own and symptoms prior to use of Abilify. Change Abilify to evening monitor for ways worsening gait with Abilify monitor for over-sedation with clozapine Continue ketamine infusion encourage mobilization 08/28/2024 restart sertraline abilify for augmentation dopamine for augmentation monitor for mood changes 08/29/2024 Patient had difficult time today initially was aggressive with staff given Depakote olanzapine was then able to cooperate with getting intravenous treated with ketamine protocol 08/30/2024 Some improvement noted continue ketamine clozapine Depakote Abilify Reason for continued inpatient stay Substantial Risk for: inability to function and rapid decompensation Time Spent With Patient Time: Total time managing care of this patient today ____ minutes.
[2024-08-31 08:00] VITALS: BP 126/69; PULSE 71; RESP 14; TEMP 36.4; O2SAT 93
[2024-08-31] MEDS: Ferrous Sulfate 324 MG TABLET.DR PO (08:42)
[2024-08-31] MEDS: Heparin Sodium,Porcine Flush 50 UNITS, 0.9 % Sodium Chloride Flush 5 ML IVFLUSH ×2 (09:22→20:31)
[2024-08-31 20:00] VITALS: BP 160/73; PULSE 93; RESP 16; TEMP 36.6; O2SAT 97
[2024-08-31] MEDS: Divalproex Sodium Sprinkles 125 MG CAP.DR.SPR 500 MG PO (20:29)
--- NOTE | 2024-08-31 20:58 | HO.PSYCHPN ---
Subjective Subjective Date of Service: 08/31/24 Reason For Visit: catatonia Subjective Notes: Conditional Voluntary Interim History: Patient seen psychiatric follow-up case reviewed in treatment team. . The patient shows a orozco range of affect he does complain of some anxiety and depressive symptoms. Does not like to use a walker feels better independently Medication Compliance: Yes Mental Status Exam Mental Status Exam Narrative: Patient seen psychiatric follow-up. Wearing hospital garb. Patient calm alert response to questions. Some complaint of some cold symptoms was telling 1 of the mental health workers that look like people on TV show taxi much o[place] affect not aggressive no psychosis impulse control improved Diagnostics Vital Signs (24Hr): Vital Signs - 24 hr 08/31/24 08:00 08/31/24 20:00 Temperature 97.5 F 97.9 F Pulse Rate 71 93 Respiratory Rate 14 16 Blood Pressure 126/69 160/73 H Pulse Oximetry 93 97 Oxygen Delivery Method Room Air Room Air BMI result Body Mass Index 27.1 Labs 09/01/24 10:56 08/26/24 07:26 Labs: Laboratory Results - last 48 hr 08/30/24 07:36 WBC 5.1 RBC 3.70 L Hgb 10.5 L Hct 32.0 L MCV 86.5 MCH 28.4 MCHC 32.8 RDW 14.3 Plt Count 182 MPV 10.6 Immature Gran % (Auto) 1.2 H Neut % (Auto) 56.2 Lymph % (Auto) 34.4 [place] % (Auto) 8.0 Eos % (Auto) 0.0 Baso % (Auto) 0.2 Lymph # (Auto) 1.8 [place] # (Auto) 0.4 Eos # (Auto) 0.0 Baso # (Auto) 0.0 Abs Immat Gran (auto) 0.06 H Absolute Neuts (auto) 2.9 Absolute Nucleated RBC 0.000 Nucleated RBC % (auto) 0.0 Ammonia 46 Valproic Acid 25.4 L Medications Medications Current Medications Acetaminophen (Acetaminophen 325 Mg Tablet) 650 mg PO Q6H PRN PRN Reason: Headache/Pain, Scale 1-10 Last Admin: 08/28/24 21:03 Dose: 650 mg Al Hydroxide/Mg Hydroxide (Magnesium Hydrox/Alum Hydrox 30 Ml Oral.Susp) 30 ml PO Q6H PRN PRN Reason: Heartburn/Nausea Last Admin: 08/17/24 21:50 Dose: 30 ml Albuterol/Ipratropium (Albuterol/Iprat 2.5/0.5mg 3 Ml Ampul.Neb) 3 ml INHALE QID PRN PRN Reason: SOB/wheezing Aripiprazole (Aripiprazole 5 Mg Tablet) 5 mg PO DAILY@1730 [facility] Last Admin: 08/30/24 16:31 Dose: 5 mg Benzocaine (Throat Lozenge, Medicated Lozenge) 1 lozenge MUCOUS MEM Q2H PRN PRN Reason: Sore Throat Clozapine (Clozapine 100 Mg Tablet) 150 mg PO DAILY@1999 [facility] Last Admin: 08/31/24 20:30 Dose: 150 mg Heparin Sodium (Porcine) 50 (units/ Sodium Chloride 5 ml) 0 units IVFLUSH TID [facility] Last Admin: 08/31/24 20:31 Dose: 50 unit Divalproex Sodium (Divalproex Sodium Sprinkles 125 Mg Cap.Dr.Spr) 500 mg PO BEDTIME [facility] Last Admin: 08/31/24 20:29 Dose: 500 mg Ferrous Sulfate (Ferrous Sulfate 324 Mg Tablet.) 324 mg PO DAILY [facility] Last Admin: 08/31/24 08:42 Dose: 324 mg Finasteride (Finasteride 5 Mg Tablet) 5 mg PO DAILY [facility] Last Admin: 08/31/24 08:43 Dose: 5 mg Magnesium Hydroxide (Milk Of Magnesia 30 Ml Oral.Susp) 30 ml PO DAILY PRN PRN Reason: Constipation Olanzapine (Olanzapine Odt 10 Mg Tab.Rapdis) 5 mg TRANSLINGU BID PRN PRN Reason: agitation Last Admin: 08/24/24 20:56 Dose: 5 mg Pramipexole Dihydrochloride (Pramipexole Di-Hcl 0.25 Mg Tablet) 0.5 mg PO TID [facility] Last Admin: 08/31/24 20:31 Dose: 0.5 mg Sertraline HCl (Sertraline Hcl 50 Mg Tablet) 50 mg PO DAILY [facility] Last Admin: 08/31/24 08:42 Dose: 50 mg Tamsulosin HCl (Tamsulosin Hcl 0.4 Mg Capsule) 0.8 mg PO BEDTIME [facility] Last Admin: 08/31/24 20:29 Dose: 0.8 mg Allergies Allergies Allergy/AdvReac Type Severity Reaction Status Date / Time No Known Allergies [NKA] Allergy Unknown NONE Verified 06/19/24 20:43 Assessment & Plan Assessment & Plan (1) Schizoaffective disorder: Status: Acute Code(s): F25.9 - Schizoaffective disorder, unspecified (2) UTI (urinary tract infection): Status: Acute Code(s): N39.0 - Urinary tract infection, site not specified (3) Catatonia: Status: Acute Code(s): F06.1 - Catatonic disorder due to known physiological condition Plan Schizoaffective disorder Continue treatment per psychiatry team. Status post ECT treatment today Urinary tract infection Antibiotics changed to Macrobid due to sensitivities Leukocytosis resolved Tolerating antibiotics without issue Cough and congestion PRN updraft nebulizers. Continue use of respiratory device Continue to encourage mobility and out of bed for meals. 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 May need to reconsider ECT however patient had response but after extended period of time was at times not maintained. Patient difficulty tolerating ECT from a respiratory concern in the past. Depakote also use for augmentation 08/24: Continue current regimen and plans. 08/25: Continue current regimen and plans. 08/26/24 Pt gradually imptroving cont ketamine pt dopamine agonist limited response to ect 08/27/2024 Abilify added to augmentation with clozapine at recommendation of catatonia algorithm dopamine agonist also added as part of both catatonia algorithm and Parkinson own and symptoms prior to use of Abilify. Change Abilify to evening monitor for ways worsening gait with Abilify monitor for over-sedation with clozapine Continue ketamine infusion encourage mobilization 08/28/2024 restart sertraline abilify for augmentation dopamine for augmentation monitor for mood changes 08/29/2024 Patient had difficult time today initially was aggressive with staff given Depakote olanzapine was then able to cooperate with getting intravenous treated with ketamine protocol 08/30/2024 Some improvement noted continue ketamine clozapine Depakote Abilify Informed Consent: further education needed Reason for continued inpatient stay Substantial Risk for: inability to function, rapid decompensation and med/psych decompensation Time Spent With Patient Time: Total time managing care of this patient today ____ minutes.
[2024-09-01 08:00] VITALS: BP 118/64; PULSE 68; RESP 16; TEMP 36.9; O2SAT 94
[2024-09-01] MEDS: Ferrous Sulfate 324 MG TABLET.DR PO (08:49)
[2024-09-01] MEDS: Heparin Sodium,Porcine Flush 50 UNITS, 0.9 % Sodium Chloride Flush 5 ML IVFLUSH ×3 (08:59→20:30)
[2024-09-01 11:01] LABS: MANUAL DIFF FLAG NO
[2024-09-01 11:06] LABS: Hematocrit 35.6 % (42.0-52.0); Hemoglobin 11.4 g/dl (14.0-18.0); Imm Gran Abs Auto 0.10 X10*3/uL (0.00-0.03); Imm Gran Pct Auto 1.8 % (0.0-0.4); Lymphocytes Absolute Auto 1.5 X10*3/uL (1.2-4.9); Mean Corpuscular HGB Conc 32.0 g/dl (31.0-36.0); Mean Corpuscular Hemoglobin 28.3 pg (27.0-33.0); Mean Corpuscular Volume 88.3 fL (80.0-98.0); NRBC Abs Auto 0.000 X10*3/uL (0.0-0.012); NRBC Pct Auto 0.0 /100WBC (0.0-0.2); Platelet Count 208 X10*3/uL (160-400); Red Blood Count 4.03 X10*6/uL (4.60-5.80); White Blood Count 5.7 X10*3/uL (4.8-10.8)
[2024-09-01 19:18] VITALS: BP 116/63; PULSE 76; TEMP 36.9; O2SAT 93
--- NOTE | 2024-09-01 20:11 | P.PNPSI_ITS ---
Subjective Subjective Date of Service: 09/01/24 Reason For Visit: catatonia Interim History: Patient seen for follow up. Was found asleep in bed, O2 nasal cannula, with 1:1. Sleeping soundly, restfully. Not too difficult to wake. Resting says he was up earlier ate breakfast, lunch . Mood: depressed . SI not a problem . Asked if he was undergoing ketamine treatments, says he doesn't know. Oriented self, month only and clinical hospital . Appears sleepy and returned to sleep Per staff, he had been up in the early part of morning, talkative, showered, more engaged. CBC ordered for % abs neutrophi.l Review of Systems Review of Systems Limited due to mental status but he denies any SOB or Chest pain. Yes Unobtainable due to mental status Mental Status Exam Mental Status Exam Narrative: Patient seen psychiatric follow-up. Wearing hospital garb. Patient calm alert response to questions. Some complaint of some cold symptoms was telling 1 of the mental health workers that look like people on TV show taxi much orozco affect not aggressive no psychosis impulse control improved Patient Appearance: Fatigued and Disheveled Patient Orientation: Person and Place Level of Consciousness: Lethargic Patient Behavior: Passive and Fatigued Mood Description: Blunted and Apprehensive Affect Description: Blunted Patient Cognition Impaired: No Ability to Follow Directions: Good Speech Pattern: Impoverished and Soft-Spoken Diagnostics Vital Signs (24Hr): Vital Signs - 24 hr 09/01/24 08:00 09/01/24 19:18 Temperature 98.4 F 98.5 F Pulse Rate 68 76 Respiratory Rate 16 Blood Pressure 118/64 116/63 Pulse Oximetry 94 93 Oxygen Delivery Method Room Air Room Air BMI result Body Mass Index 27.1 Labs 09/01/24 10:56 08/26/24 07:26 Labs: Laboratory Results - last 48 hr 09/01/24 09/01/24 10:56 10:56 WBC 5.7 RBC 4.03 L Hgb 11.4 L Hct 35.6 L MCV 88.3 MCH 28.3 MCHC 32.0 RDW 14.3 Plt Count 208 MPV 10.6 Immature Gran % (Auto) 1.8 H Neut % (Auto) 63.5 Lymph % (Auto) 26.2 [place] % (Auto) 8.1 Eos % (Auto) 0.0 Baso % (Auto) 0.4 Lymph # (Auto) 1.5 [place] # (Auto) 0.5 Eos # (Auto) 0.0 Baso # (Auto) 0.0 Abs Immat Gran (auto) 0.10 H Absolute Neuts (auto) Cancelled 3.6 Absolute Nucleated RBC 0.000 Nucleated RBC % (auto) 0.0 Medications Medications Current Medications Acetaminophen (Acetaminophen 325 Mg Tablet) 650 mg PO Q6H PRN PRN Reason: Headache/Pain, Scale 1-10 Last Admin: 08/28/24 21:03 Dose: 650 mg Al Hydroxide/Mg Hydroxide (Magnesium Hydrox/Alum Hydrox 30 Ml Oral.Susp) 30 ml PO Q6H PRN PRN Reason: Heartburn/Nausea Last Admin: 08/17/24 21:50 Dose: 30 ml Albuterol/Ipratropium (Albuterol/Iprat 2.5/0.5mg 3 Ml Ampul.Neb) 3 ml INHALE QID PRN PRN Reason: SOB/wheezing Aripiprazole (Aripiprazole 5 Mg Tablet) 5 mg PO DAILY@1730 [facility] Last Admin: 09/01/24 16:53 Dose: 5 mg Benzocaine (Throat Lozenge, Medicated Lozenge) 1 lozenge MUCOUS MEM Q2H PRN PRN Reason: Sore Throat Clozapine (Clozapine 100 Mg Tablet) 150 mg PO DAILY@1999 [facility] Last Admin: 08/31/24 20:30 Dose: 150 mg Heparin Sodium (Porcine) 50 (units/ Sodium Chloride 5 ml) 0 units IVFLUSH TID [facility] Last Admin: 09/01/24 15:08 Dose: 50 unit Divalproex Sodium (Divalproex Sodium Sprinkles 125 Mg Cap.) 500 mg PO BEDTIME [facility] Last Admin: 08/31/24 20:29 Dose: 500 mg Ferrous Sulfate (Ferrous Sulfate 324 Mg Tablet.) 324 mg PO DAILY [facility] Last Admin: 09/01/24 08:49 Dose: 324 mg Finasteride (Finasteride 5 Mg Tablet) 5 mg PO DAILY [facility] Last Admin: 09/01/24 08:49 Dose: 5 mg Magnesium Hydroxide (Milk Of Magnesia 30 Ml Oral.Susp) 30 ml PO DAILY PRN PRN Reason: Constipation Olanzapine (Olanzapine Odt 10 Mg Tab.Rapdis) 5 mg TRANSLINGU BID PRN PRN Reason: agitation Last Admin: 08/24/24 20:56 Dose: 5 mg Pramipexole Dihydrochloride (Pramipexole Di-Hcl 0.25 Mg Tablet) 0.5 mg PO TID [facility] Last Admin: 09/01/24 15:07 Dose: 0.5 mg Sertraline HCl (Sertraline Hcl 50 Mg Tablet) 50 mg PO DAILY [facility] Last Admin: 09/01/24 08:49 Dose: 50 mg Tamsulosin HCl (Tamsulosin Hcl 0.4 Mg Capsule) 0.8 mg PO BEDTIME [facility] Last Admin: 08/31/24 20:29 Dose: 0.8 mg Allergies Allergies Allergy/AdvReac Type Severity Reaction Status Date / Time No Known Allergies [NKA] Allergy Unknown NONE Verified 06/19/24 20:43 Assessment & Plan Assessment & Plan (1) Schizoaffective disorder: Status: Acute Code(s): F25.9 - Schizoaffective disorder, unspecified (2) UTI (urinary tract infection): Status: Acute Code(s): N39.0 - Urinary tract infection, site not specified (3) Catatonia: Status: Acute Code(s): F06.1 - Catatonic disorder due to known physiological condition Plan Schizoaffective disorder Continue treatment per psychiatry team. Status post ECT treatment today Urinary tract infection Antibiotics changed to Macrobid due to sensitivities Leukocytosis resolved Tolerating antibiotics without issue Cough and congestion PRN updraft nebulizers. Continue use of respiratory device Continue to encourage mobility and out of bed for meals. 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 May need to reconsider ECT however patient had response but after extended period of time was at times not maintained. Patient difficulty tolerating ECT from a respiratory concern in the past. Depakote also use for augmentation 08/24: Continue current regimen and plans. 08/25: Continue current regimen and plans. 08/26/24 Pt gradually imptroving cont ketamine pt dopamine agonist limited response to ect 08/27/2024 Abilify added to augmentation with clozapine at recommendation of catatonia algorithm dopamine agonist also added as part of both catatonia algorithm and Parkinson own and symptoms prior to use of Abilify. Change Abilify to evening monitor for ways worsening gait with Abilify monitor for over-sedation with clozapine Continue ketamine infusion encourage mobilization 08/28/2024 restart sertraline abilify for augmentation dopamine for augmentation monitor for mood changes 08/29/2024 Patient had difficult time today initially was aggressive with staff given Depakote olanzapine was then able to cooperate with getting intravenous treated with ketamine protocol 08/30/2024 Some improvement noted continue ketamine clozapine Depakote Abilify 09/01/2024 No change in plan Reason for continued inpatient stay Substantial Risk for: inability to function and rapid decompensation Time Spent With Patient Time: Total time managing care of this patient today ____ minutes.
[2024-09-01] MEDS: Divalproex Sodium Sprinkles 125 MG CAP.DR.SPR 500 MG PO (20:28)
[2024-09-02 07:59] VITALS: BP 121/66; PULSE 86; RESP 15; TEMP 37; O2SAT 99
[2024-09-02] MEDS: Heparin Sodium,Porcine Flush 50 UNITS, 0.9 % Sodium Chloride Flush 5 ML IVFLUSH ×3 (08:14→20:56)
[2024-09-02] MEDS: Ferrous Sulfate 324 MG TABLET.DR PO (08:16)
--- NOTE | 2024-09-02 14:02 | P.PNPSI_ITS ---
Subjective Subjective Date of Service: 09/02/24 Reason For Visit: catatonia Subjective Notes: Conditional Voluntary Interim History: Patient seen psychiatric follow-up patient functioning improved he has been using a walker has been coming out of bed eating some reactivity but decreased. Medication Compliance: Yes Mental Status Exam Mental Status Exam Patient Appearance: Fatigued and Disheveled Patient Orientation: Person and Place Level of Consciousness: Lethargic Patient Behavior: Passive and Fatigued Mood Description: Blunted and Apprehensive Affect Description: Blunted Patient Cognition Impaired: No Ability to Follow Directions: Good Speech Pattern: Impoverished and Soft-Spoken Thought Process: Slowed Thinking Thought Content: negative for Suicidal Ideation or negative for Homicidal Ideation Depressive Symptoms: Increased Anxiety Judgement: Fair Diagnostics Vital Signs (24Hr): Vital Signs - 24 hr 09/01/24 19:18 09/02/24 07:59 Temperature 98.5 F 98.6 F Pulse Rate 76 86 Respiratory Rate 15 Blood Pressure 116/63 121/66 Pulse Oximetry 93 99 Oxygen Delivery Method Room Air Room Air BMI result Body Mass Index 27.1 Labs 09/01/24 10:56 08/26/24 07:26 Labs: Laboratory Results - last 48 hr 09/01/24 09/01/24 10:56 10:56 WBC 5.7 RBC 4.03 L Hgb 11.4 L Hct 35.6 L MCV 88.3 MCH 28.3 MCHC 32.0 RDW 14.3 Plt Count 208 MPV 10.6 Immature Gran % (Auto) 1.8 H Neut % (Auto) 63.5 Lymph % (Auto) 26.2 [place] % (Auto) 8.1 Eos % (Auto) 0.0 Baso % (Auto) 0.4 Lymph # (Auto) 1.5 [place] # (Auto) 0.5 Eos # (Auto) 0.0 Baso # (Auto) 0.0 Abs Immat Gran (auto) 0.10 H Absolute Neuts (auto) Cancelled 3.6 Absolute Nucleated RBC 0.000 Nucleated RBC % (auto) 0.0 Medications Medications Current Medications Acetaminophen (Acetaminophen 325 Mg Tablet) 650 mg PO Q6H PRN PRN Reason: Headache/Pain, Scale 1-10 Last Admin: 08/28/24 21:03 Dose: 650 mg Al Hydroxide/Mg Hydroxide (Magnesium Hydrox/Alum Hydrox 30 Ml Oral.Susp) 30 ml PO Q6H PRN PRN Reason: Heartburn/Nausea Last Admin: 08/17/24 21:50 Dose: 30 ml Albuterol/Ipratropium (Albuterol/Iprat 2.5/0.5mg 3 Ml Ampul.Neb) 3 ml INHALE QID PRN PRN Reason: SOB/wheezing Aripiprazole (Aripiprazole 5 Mg Tablet) 5 mg PO DAILY@1730 [facility] Last Admin: 09/01/24 16:53 Dose: 5 mg Benzocaine (Throat Lozenge, Medicated Lozenge) 1 lozenge MUCOUS MEM Q2H PRN PRN Reason: Sore Throat Clozapine (Clozapine 100 Mg Tablet) 150 mg PO DAILY@1999 [facility] Last Admin: 09/01/24 20:29 Dose: 150 mg Heparin Sodium (Porcine) 50 (units/ Sodium Chloride 5 ml) 0 units IVFLUSH TID [facility] Last Admin: 09/02/24 08:14 Dose: 50 unit Divalproex Sodium (Divalproex Sodium Sprinkles 125 Mg Cap.Spr) 500 mg PO BEDTIME [facility] Last Admin: 09/01/24 20:28 Dose: 500 mg Ferrous Sulfate (Ferrous Sulfate 324 Mg Tablet.Dr) 324 mg PO DAILY [facility] Last Admin: 09/02/24 08:16 Dose: 324 mg Finasteride (Finasteride 5 Mg Tablet) 5 mg PO DAILY [facility] Last Admin: 09/02/24 08:16 Dose: 5 mg Magnesium Hydroxide (Milk Of Magnesia 30 Ml Oral.Susp) 30 ml PO DAILY PRN PRN Reason: Constipation Olanzapine (Olanzapine Odt 10 Mg Tab.Rapdis) 5 mg TRANSLINGU BID PRN PRN Reason: agitation Last Admin: 08/24/24 20:56 Dose: 5 mg Pramipexole Dihydrochloride (Pramipexole Di-Hcl 0.25 Mg Tablet) 0.5 mg PO TID [facility] Last Admin: 09/02/24 08:16 Dose: 0.5 mg Sertraline HCl (Sertraline Hcl 50 Mg Tablet) 50 mg PO DAILY [facility] Last Admin: 09/02/24 08:16 Dose: 50 mg Tamsulosin HCl (Tamsulosin Hcl 0.4 Mg Capsule) 0.8 mg PO BEDTIME [facility] Last Admin: 09/01/24 20:27 Dose: 0.8 mg Allergies Allergies Allergy/AdvReac Type Severity Reaction Status Date / Time No Known Allergies [NKA] Allergy Unknown NONE Verified 06/19/24 20:43 Assessment & Plan Assessment & Plan (1) Schizoaffective disorder: Status: Acute Code(s): F25.9 - Schizoaffective disorder, unspecified (2) UTI (urinary tract infection): Status: Acute Code(s): N39.0 - Urinary tract infection, site not specified (3) Catatonia: Status: Acute Code(s): F06.1 - Catatonic disorder due to known physiological condition Plan Schizoaffective disorder Continue treatment per psychiatry team. Status post ECT treatment today Urinary tract infection Antibiotics changed to Macrobid due to sensitivities Leukocytosis resolved Tolerating antibiotics without issue Cough and congestion PRN updraft nebulizers. Continue use of respiratory device Continue to encourage mobility and out of bed for meals. 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 May need to reconsider ECT however patient had response but after extended period of time was at times not maintained. Patient difficulty tolerating ECT from a respiratory concern in the past. Depakote also use for augmentation 08/24: Continue current regimen and plans. 08/25: Continue current regimen and plans. 08/26/24 Pt gradually imptroving cont ketamine pt dopamine agonist limited response to ect 08/27/2024 Abilify added to augmentation with clozapine at recommendation of catatonia algorithm dopamine agonist also added as part of both catatonia algorithm and Parkinson own and symptoms prior to use of Abilify. Change Abilify to evening monitor for ways worsening gait with Abilify monitor for over-sedation with clozapine Continue ketamine infusion encourage mobilization 08/28/2024 restart sertraline abilify for augmentation dopamine for augmentation monitor for mood changes 08/29/2024 Patient had difficult time today initially was aggressive with staff given Depakote olanzapine was then able to cooperate with getting intravenous treated with ketamine protocol 08/30/2024 Some improvement noted continue ketamine clozapine Depakote Abilify 09/02/2024 Some improvements noted schedule ketamine for tomorrow continue Depakote clozapine dopamine agonist sertraline 50 mg some increased irritability but can be reflective in thought Informed Consent: further education needed Reason for continued inpatient stay Substantial Risk for: inability to function, rapid decompensation and med/psych decompensation Time Spent With Patient Time: Total time managing care of this patient today ____ minutes.
--- NOTE | 2024-09-02 15:17 | PM.NEUROCN ---
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 He denied that there was anything wrong with his foot stating that he was having tremor. Review of Systems Review of Systems: No complain of back pain foot pain or leg pain. [facility] Past Medical History Medical History (Updated 08/15/24 @ 13:00 by Isha Ferrari DNP) Tardive dyskinesia Hospital discharge follow-up Mild sleep apnea Nocturnal hypoxia Routine medical exam Joint inflammation of right hand and wrist Status post fall Adult general medical exam Screening for colon cancer Screening for prostate cancer Cough BPH (benign prostatic hyperplasia) Family History Family History Mother Cancer Father Kidney agenesis Surgical History Surgical History History of colonoscopy (~06/15/21) History of tooth extraction History of root canal procedure Social History Social History Household Members: Family Housing: Apartment Are you a primary floor care technician to a significant other at home: No Do you presently have visiting nurse or other home services: Yes Unable to assess alcohol history related to: Unable to respond Alcohol intake: former Comment: 1:1 monitoring Patient Tobacco Use Status: Never used Tobacco e-Cigarette/Vaping Use: Never Used Second Hand Smoke Exposure: No Currently Displaying Signs/Symptoms of Drug Intoxication Withdrawal: No Have you been hit, kicked, punched, or otherwise hurt by someone within the past year? If so, by whom?: No Do you feel safe in your current relationship?: No Current Relationship Is there a partner from a previous relationship who is making you feel unsafe now?: No Are you made to feel afraid or neglected: No Advance Directives: No Advance Directives Information Provided: Yes Do you have thoughts of harming others: None Do you have a plan to hurt others: No Plan Recently lost weight without trying: Yes How much weight loss: 14-23 pounds Eating poorly because of decreased appetite: Yes Nutrition screen score: 5 Nutrition Risks: On aspiration precautions Poor oral hygiene: No service: No Current occupational status: employed Sexual orientation: Straight/Heterosexual Cognitive needs: No Hearing needs: No Vision needs: No Meds Allergies Allergy/AdvReac Type Severity Reaction Status Date / Time No Known Allergies [NKA] Allergy Unknown NONE Verified 06/19/24 20:43 Active Medications: Current Medications Acetaminophen (Acetaminophen 325 Mg Tablet) 650 mg PO Q6H PRN PRN Reason: Headache/Pain, Scale 1-10 Last Admin: 08/28/24 21:03 Dose: 650 mg Al Hydroxide/Mg Hydroxide (Magnesium Hydrox/Alum Hydrox 30 Ml Oral.Susp) 30 ml PO Q6H PRN PRN Reason: Heartburn/Nausea Last Admin: 08/17/24 21:50 Dose: 30 ml Albuterol/Ipratropium (Albuterol/Iprat 2.5/0.5mg 3 Ml Ampul.Neb) 3 ml INHALE QID PRN PRN Reason: SOB/wheezing Aripiprazole (Aripiprazole 5 Mg Tablet) 5 mg PO DAILY@1730 [facility] Last Admin: 09/01/24 16:53 Dose: 5 mg Benzocaine (Throat Lozenge, Medicated Lozenge) 1 lozenge MUCOUS MEM Q2H PRN PRN Reason: Sore Throat Clozapine (Clozapine 100 Mg Tablet) 150 mg PO DAILY@1999 [facility] Last Admin: 09/01/24 20:29 Dose: 150 mg Heparin Sodium (Porcine) 50 (units/ Sodium Chloride 5 ml) 0 units IVFLUSH TID [facility] Last Admin: 09/02/24 14:33 Dose: 50 unit Divalproex Sodium (Divalproex Sodium Sprinkles 125 Mg Cap.Spr) 500 mg PO BEDTIME [facility] Last Admin: 09/01/24 20:28 Dose: 500 mg Ferrous Sulfate (Ferrous Sulfate 324 Mg Tablet.Dr) 324 mg PO DAILY [facility] Last Admin: 09/02/24 08:16 Dose: 324 mg Finasteride (Finasteride 5 Mg Tablet) 5 mg PO DAILY [facility] Last Admin: 09/02/24 08:16 Dose: 5 mg Magnesium Hydroxide (Milk Of Magnesia 30 Ml Oral.Susp) 30 ml PO DAILY PRN PRN Reason: Constipation Olanzapine (Olanzapine Odt 10 Mg Tab.Rapdis) 5 mg TRANSLINGU BID PRN PRN Reason: agitation Last Admin: 08/24/24 20:56 Dose: 5 mg Pramipexole Dihydrochloride (Pramipexole Di-Hcl 0.25 Mg Tablet) 0.5 mg PO TID [facility] Last Admin: 09/02/24 14:26 Dose: 0.5 mg Sertraline HCl (Sertraline Hcl 50 Mg Tablet) 50 mg PO DAILY [facility] Last Admin: 09/02/24 08:16 Dose: 50 mg Tamsulosin HCl (Tamsulosin Hcl 0.4 Mg Capsule) 0.8 mg PO BEDTIME [facility] Last Admin: 09/01/24 20:27 Dose: 0.8 mg Physical Exam Vital Signs: Vital Signs: Last Vital Signs Temp 98.6 F 09/02/24 07:59 Pulse 86 09/02/24 07:59 Resp 15 09/02/24 07:59 BP 121/66 09/02/24 07:59 Pulse Ox 99 09/02/24 07:59 O2 Del Method Room Air 09/02/24 07:59 BMI result Body Mass Index 27.1 Neuro: Other: He is alert and awake with normal spontaneity of speech fluency comprehension and flat affect. There is moderate right started parkinsonism with tremor and rigidity. On formal strength examination there was no significant weakness and right foot though mild dyskinesia and moderate rigidity was noted. Deep tendon reflexes were trace to 1+ with flexor plantars. He was able to get up and walk and stand on heels and toes. 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 I would recommend trying carbidopa levodopa 25/100 3 times a day. Procedures Date of Service Date of Service: 09/02/24
[2024-09-02 20:00] VITALS: BP 118/62; PULSE 70; TEMP 36.8; O2SAT 95
[2024-09-02] MEDS: Divalproex Sodium Sprinkles 125 MG CAP.DR.SPR 500 MG PO (21:00)
[2024-09-03] VITALS (10 sets, daily range): BP systolic 108–134; BP diastolic 51–67; PULSE 62–80; RESP 16–18; TEMP 36.4–37.4; O2SAT 93–97
[2024-09-03] MEDS: Ketamine HCl 500 MG in 0.9 % Sodium Chloride 250 ML 21.21 MG IV (08:00)
[2024-09-03] MEDS: Ferrous Sulfate 324 MG TABLET.DR PO (10:38)
[2024-09-03] MEDS: Heparin Sodium,Porcine Flush 50 UNITS, 0.9 % Sodium Chloride Flush 5 ML IVFLUSH ×3 (11:19→20:44)
--- NOTE | 2024-09-03 13:30 | HO.PSYCHPN ---
Subjective Subjective Date of Service: 08/27/24 Reason For Visit: catatonia Subjective Notes: Conditional Voluntary Interim History: Patient seen psychiatric follow-up. Status post ketamine infusion some irritability Diagnostics Vital Signs (24Hr): Vital Signs - 24 hr 09/02/24 20:00 09/03/24 08:00 09/03/24 08:15 Temperature 98.2 F 97.6 F Pulse Rate 70 77 80 Respiratory Rate 18 18 Blood Pressure 118/62 113/61 111/51 L Pulse Oximetry 95 96 97 Oxygen Delivery Method Room Air Room Air Room Air 09/03/24 08:30 09/03/24 08:45 09/03/24 09:00 Temperature Pulse Rate 71 68 76 Respiratory Rate 18 18 18 Blood Pressure 111/55 L 109/57 L 118/65 Pulse Oximetry 94 94 93 Oxygen Delivery Method Room Air Room Air Room Air 09/03/24 09:15 09/03/24 09:30 09/03/24 09:45 Temperature Pulse Rate 78 72 62 Respiratory Rate 18 18 16 Blood Pressure 111/62 117/67 108/63 Pulse Oximetry 95 96 97 Oxygen Delivery Method Room Air Room Air Room Air 09/03/24 10:00 Temperature 99.4 F Pulse Rate 65 Respiratory Rate 16 Blood Pressure 113/62 Pulse Oximetry 97 Oxygen Delivery Method Room Air BMI result Body Mass Index 27.1 Labs 09/01/24 10:56 08/26/24 07:26 Medications Medications Current Medications Acetaminophen (Acetaminophen 325 Mg Tablet) 650 mg PO Q6H PRN PRN Reason: Headache/Pain, Scale 1-10 Last Admin: 08/28/24 21:03 Dose: 650 mg Al Hydroxide/Mg Hydroxide (Magnesium Hydrox/Alum Hydrox 30 Ml Oral.Susp) 30 ml PO Q6H PRN PRN Reason: Heartburn/Nausea Last Admin: 08/17/24 21:50 Dose: 30 ml Albuterol/Ipratropium (Albuterol/Iprat 2.5/0.5mg 3 Ml Ampul.Neb) 3 ml INHALE QID PRN PRN Reason: SOB/wheezing Aripiprazole (Aripiprazole 5 Mg Tablet) 5 mg PO DAILY@1730 [facility] Last Admin: 09/02/24 16:38 Dose: 5 mg Benzocaine (Throat Lozenge, Medicated Lozenge) 1 lozenge MUCOUS MEM Q2H PRN PRN Reason: Sore Throat Clozapine (Clozapine 100 Mg Tablet) 150 mg PO DAILY@1999 [facility] Last Admin: 09/02/24 21:01 Dose: 150 mg Heparin Sodium (Porcine) 50 (units/ Sodium Chloride 5 ml) 0 units IVFLUSH TID [facility] Last Admin: 09/03/24 11:19 Dose: 50 unit Divalproex Sodium (Divalproex Sodium Sprinkles 125 Mg Cap.Dr.Spr) 500 mg PO BEDTIME [facility] Last Admin: 09/02/24 21:00 Dose: 500 mg Ferrous Sulfate (Ferrous Sulfate 324 Mg Tablet.Dr) 324 mg PO DAILY [facility] Last Admin: 09/03/24 10:38 Dose: 324 mg Finasteride (Finasteride 5 Mg Tablet) 5 mg PO DAILY [facility] Last Admin: 09/03/24 10:38 Dose: 5 mg Magnesium Hydroxide (Milk Of Magnesia 30 Ml Oral.Susp) 30 ml PO DAILY PRN PRN Reason: Constipation Olanzapine (Olanzapine Odt 10 Mg Tab.Rapdis) 5 mg TRANSLINGU BID PRN PRN Reason: agitation Last Admin: 08/24/24 20:56 Dose: 5 mg Pramipexole Dihydrochloride (Pramipexole Di-Hcl 0.25 Mg Tablet) 0.5 mg PO TID [facility] Last Admin: 09/03/24 10:38 Dose: 0.5 mg Sertraline HCl (Sertraline Hcl 50 Mg Tablet) 50 mg PO DAILY [facility] Last Admin: 09/03/24 10:38 Dose: 50 mg Tamsulosin HCl (Tamsulosin Hcl 0.4 Mg Capsule) 0.8 mg PO BEDTIME [facility] Last Admin: 09/02/24 21:01 Dose: 0.8 mg Allergies Allergies Allergy/AdvReac Type Severity Reaction Status Date / Time No Known Allergies [NKA] Allergy Unknown NONE Verified 06/19/24 20:43 Assessment & Plan Assessment & Plan (1) Schizoaffective disorder: Status: Acute Code(s): F25.9 - Schizoaffective disorder, unspecified (2) UTI (urinary tract infection): Status: Acute Code(s): N39.0 - Urinary tract infection, site not specified (3) Catatonia: Status: Acute Code(s): F06.1 - Catatonic disorder due to known physiological condition Plan Schizoaffective disorder Continue treatment per psychiatry team. Status post ECT treatment today Urinary tract infection Antibiotics changed to Macrobid due to sensitivities Leukocytosis resolved Tolerating antibiotics without issue Cough and congestion PRN updraft nebulizers. Continue use of respiratory device Continue to encourage mobility and out of bed for meals. 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 May need to reconsider ECT however patient had response but after extended period of time was at times not maintained. Patient difficulty tolerating ECT from a respiratory concern in the past. Depakote also use for augmentation 08/24: Continue current regimen and plans. 08/25: Continue current regimen and plans. 08/26/24 Pt gradually imptroving cont ketamine pt dopamine agonist limited response to ect 08/27/2024 Abilify added to augmentation with clozapine at recommendation of catatonia algorithm dopamine agonist also added as part of both catatonia algorithm and Parkinson own and symptoms prior to use of Abilify. Change Abilify to evening monitor for ways worsening gait with Abilify monitor for over-sedation with clozapine Continue ketamine infusion encourage mobilization 08/28/2024 restart sertraline abilify for augmentation dopamine for augmentation monitor for mood changes 08/29/2024 Patient had difficult time today initially was aggressive with staff given Depakote olanzapine was then able to cooperate with getting intravenous treated with ketamine protocol 08/30/2024 Some improvement noted continue ketamine clozapine Depakote Abilify 09/02/2024 Some improvements noted schedule ketamine for tomorrow continue Depakote clozapine dopamine agonist sertraline 50 mg some increased irritability but can be reflective in thought 09/03/24 pt seen some inc sexual activity some iiritability Reason for continued inpatient stay Substantial Risk for: inability to function, rapid decompensation and med/psych decompensation Time Spent With Patient Time: Total time managing care of this patient today ____ minutes.
[2024-09-03] MEDS: Divalproex Sodium Sprinkles 125 MG CAP.DR.SPR 500 MG PO (20:29)
[2024-09-04 08:00] VITALS: BP 132/67; PULSE 78; RESP 16; TEMP 37.2; O2SAT 98
[2024-09-04] MEDS: Ferrous Sulfate 324 MG TABLET.DR PO (09:29)
[2024-09-04] MEDS: Heparin Sodium,Porcine Flush 50 UNITS, 0.9 % Sodium Chloride Flush 5 ML IVFLUSH ×3 (09:29→21:16)
[2024-09-04 20:00] VITALS: BP 118/60; PULSE 91; RESP 18; TEMP 37.1; O2SAT 95
[2024-09-04] MEDS: Divalproex Sodium Sprinkles 125 MG CAP.DR.SPR 500 MG PO (21:08)
[2024-09-05 08:55] VITALS: BP 109/70; PULSE 87; RESP 15; TEMP 36.8; O2SAT 98
[2024-09-05] MEDS: Heparin Sodium,Porcine Flush 50 UNITS, 0.9 % Sodium Chloride Flush 5 ML IVFLUSH ×3 (08:57→21:14)
[2024-09-05] MEDS: Ferrous Sulfate 324 MG TABLET.DR PO (09:00)
[2024-09-05 11:16] VITALS: BMI 28.0
[2024-09-05 20:00] VITALS: BP 134/67; PULSE 100; RESP 16; TEMP 36.3; O2SAT 96
[2024-09-05] MEDS: Divalproex Sodium Sprinkles 125 MG CAP.DR.SPR 500 MG PO (21:10)
--- NOTE | 2024-09-05 22:37 | HO.PSYCHPN ---
Subjective Subjective Date of Service: 09/04/24 Reason For Visit: catatonia Subjective Notes: Conditional Voluntary Healthcare Proxy: Yes Interim History: pt taken off 1.1 seems ok on 5 min cks out of room more pt mood ok some dec latency Medication Compliance: Yes Mental Status Exam Mental Status Exam Patient Appearance: Fatigued and Disheveled Patient Orientation: Person and Place Level of Consciousness: Lethargic Patient Behavior: Passive and Fatigued Mood Description: Blunted and Apprehensive Affect Description: Blunted Patient Cognition Impaired: No Ability to Follow Directions: Good Speech Pattern: Monotone and Soft-Spoken Thought Process: Slowed Thinking Thought Content: negative for Suicidal Ideation or negative for Homicidal Ideation Depressive Symptoms: Increased Anxiety Judgement: Fair Diagnostics Vital Signs (24Hr): Vital Signs - 24 hr 09/05/24 08:55 Temperature 98.2 F Pulse Rate 87 Respiratory Rate 15 Blood Pressure 109/70 Pulse Oximetry 98 Oxygen Delivery Method Room Air BMI result Body Mass Index 28.0 Labs 09/01/24 10:56 08/26/24 07:26 Medications Medications Current Medications Acetaminophen (Acetaminophen 325 Mg Tablet) 650 mg PO Q6H PRN PRN Reason: Headache/Pain, Scale 1-10 Last Admin: 08/28/24 21:03 Dose: 650 mg Al Hydroxide/Mg Hydroxide (Magnesium Hydrox/Alum Hydrox 30 Ml Oral.Susp) 30 ml PO Q6H PRN PRN Reason: Heartburn/Nausea Last Admin: 08/17/24 21:50 Dose: 30 ml Albuterol/Ipratropium (Albuterol/Iprat 2.5/0.5mg 3 Ml Ampul.Neb) 3 ml INHALE QID PRN PRN Reason: SOB/wheezing Aripiprazole (Aripiprazole 5 Mg Tablet) 5 mg PO DAILY@1730 [facility] Last Admin: 09/05/24 17:04 Dose: 5 mg Benzocaine (Throat Lozenge, Medicated Lozenge) 1 lozenge MUCOUS MEM Q2H PRN PRN Reason: Sore Throat Clozapine (Clozapine 100 Mg Tablet) 150 mg PO DAILY@1999 [facility] Last Admin: 09/05/24 21:11 Dose: 150 mg Heparin Sodium (Porcine) 50 (units/ Sodium Chloride 5 ml) 0 units IVFLUSH TID [facility] Last Admin: 09/05/24 21:14 Dose: 50 unit Divalproex Sodium (Divalproex Sodium Sprinkles 125 Mg Cap.Spr) 500 mg PO BEDTIME [facility] Last Admin: 09/05/24 21:10 Dose: 500 mg Ferrous Sulfate (Ferrous Sulfate 324 Mg Tablet.Dr) 324 mg PO DAILY [facility] Last Admin: 09/05/24 09:00 Dose: 324 mg Finasteride (Finasteride 5 Mg Tablet) 5 mg PO DAILY [facility] Last Admin: 09/05/24 09:00 Dose: 5 mg Magnesium Hydroxide (Milk Of Magnesia 30 Ml Oral.Susp) 30 ml PO DAILY PRN PRN Reason: Constipation Mirtazapine (Mirtazapine 7.5 Mg Tablet) 7.5 mg PO BEDTIME [facility] Last Admin: 09/05/24 21:12 Dose: 7.5 mg Olanzapine (Olanzapine Odt 10 Mg Tab.Rapdis) 5 mg TRANSLINGU BID PRN PRN Reason: agitation Last Admin: 08/24/24 20:56 Dose: 5 mg Pramipexole Dihydrochloride (Pramipexole Di-Hcl 0.25 Mg Tablet) 0.5 mg PO TID [facility] Last Admin: 09/05/24 21:09 Dose: 0.5 mg Sertraline HCl (Sertraline Hcl 50 Mg Tablet) 50 mg PO DAILY [facility] Last Admin: 09/05/24 09:00 Dose: 50 mg Tamsulosin HCl (Tamsulosin Hcl 0.4 Mg Capsule) 0.8 mg PO BEDTIME [facility] Last Admin: 09/05/24 21:08 Dose: 0.8 mg Allergies Allergies Allergy/AdvReac Type Severity Reaction Status Date / Time No Known Allergies [NKA] Allergy Unknown NONE Verified 06/19/24 20:43 Assessment & Plan Assessment & Plan (1) Schizoaffective disorder: Status: Acute Code(s): F25.9 - Schizoaffective disorder, unspecified (2) UTI (urinary tract infection): Status: Acute Code(s): N39.0 - Urinary tract infection, site not specified (3) Catatonia: Status: Acute Code(s): F06.1 - Catatonic disorder due to known physiological condition Plan Schizoaffective disorder Continue treatment per psychiatry team. Status post ECT treatment today Urinary tract infection Antibiotics changed to Macrobid due to sensitivities Leukocytosis resolved Tolerating antibiotics without issue Cough and congestion PRN updraft nebulizers. Continue use of respiratory device Continue to encourage mobility and out of bed for meals. 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 May need to reconsider ECT however patient had response but after extended period of time was at times not maintained. Patient difficulty tolerating ECT from a respiratory concern in the past. Depakote also use for augmentation 08/24: Continue current regimen and plans. 08/25: Continue current regimen and plans. 08/26/24 Pt gradually imptroving cont ketamine pt dopamine agonist limited response to ect 08/27/2024 Abilify added to augmentation with clozapine at recommendation of catatonia algorithm dopamine agonist also added as part of both catatonia algorithm and Parkinson own and symptoms prior to use of Abilify. Change Abilify to evening monitor for ways worsening gait with Abilify monitor for over-sedation with clozapine Continue ketamine infusion encourage mobilization 08/28/2024 restart sertraline abilify for augmentation dopamine for augmentation monitor for mood changes 08/29/2024 Patient had difficult time today initially was aggressive with staff given Depakote olanzapine was then able to cooperate with getting intravenous treated with ketamine protocol 08/30/2024 Some improvement noted continue ketamine clozapine Depakote Abilify 09/02/2024 Some improvements noted schedule ketamine for tomorrow continue Depakote clozapine dopamine agonist sertraline 50 mg some increased irritability but can be reflective in thought 09/03/24 pt seen some inc sexual activity some iiritability 09/04/24 pt seems to be improving will try and taper ketamine Reason for continued inpatient stay Substantial Risk for: inability to function, rapid decompensation and med/psych decompensation Time Spent With Patient Time: Total time managing care of this patient today ____ minutes.
--- NOTE | 2024-09-05 22:58 | HO.PSYCHPN ---
Subjective Subjective Date of Service: 09/05/24 Reason For Visit: catatonia Subjective Notes: Conditional Voluntary Interim History: Pt walking ok tolerating 5 min cks not reactive or aggressive today Mental Status Exam Mental Status Exam Patient Appearance: Fatigued and Disheveled Patient Orientation: Person and Place Level of Consciousness: Lethargic Patient Behavior: Passive and Fatigued Mood Description: Blunted and Apprehensive Affect Description: Blunted Patient Cognition Impaired: No Ability to Follow Directions: Good Speech Pattern: Monotone and Soft-Spoken Thought Process: Slowed Thinking Thought Content: negative for Suicidal Ideation or negative for Homicidal Ideation Depressive Symptoms: Increased Anxiety Judgement: Fair Diagnostics Vital Signs (24Hr): Vital Signs - 24 hr 09/05/24 08:55 09/05/24 20:00 Temperature 98.2 F 97.3 F Pulse Rate 87 100 Respiratory Rate 15 16 Blood Pressure 109/70 134/67 Pulse Oximetry 98 96 Oxygen Delivery Method Room Air Room Air BMI result Body Mass Index 28.0 Labs 09/01/24 10:56 08/26/24 07:26 Medications Medications Current Medications Acetaminophen (Acetaminophen 325 Mg Tablet) 650 mg PO Q6H PRN PRN Reason: Headache/Pain, Scale 1-10 Last Admin: 08/28/24 21:03 Dose: 650 mg Al Hydroxide/Mg Hydroxide (Magnesium Hydrox/Alum Hydrox 30 Ml Oral.Susp) 30 ml PO Q6H PRN PRN Reason: Heartburn/Nausea Last Admin: 08/17/24 21:50 Dose: 30 ml Albuterol/Ipratropium (Albuterol/Iprat 2.5/0.5mg 3 Ml Ampul.Neb) 3 ml INHALE QID PRN PRN Reason: SOB/wheezing Aripiprazole (Aripiprazole 5 Mg Tablet) 5 mg PO DAILY@1730 [facility] Last Admin: 09/05/24 17:04 Dose: 5 mg Benzocaine (Throat Lozenge, Medicated Lozenge) 1 lozenge MUCOUS MEM Q2H PRN PRN Reason: Sore Throat Clozapine (Clozapine 100 Mg Tablet) 150 mg PO DAILY@1999 [facility] Last Admin: 09/05/24 21:11 Dose: 150 mg Heparin Sodium (Porcine) 50 (units/ Sodium Chloride 5 ml) 0 units IVFLUSH TID [facility] Last Admin: 09/05/24 21:14 Dose: 50 unit Divalproex Sodium (Divalproex Sodium Sprinkles 125 Mg Cap.Spr) 500 mg PO BEDTIME [facility] Last Admin: 09/05/24 21:10 Dose: 500 mg Ferrous Sulfate (Ferrous Sulfate 324 Mg Tablet.Dr) 324 mg PO DAILY [facility] Last Admin: 09/05/24 09:00 Dose: 324 mg Finasteride (Finasteride 5 Mg Tablet) 5 mg PO DAILY [facility] Last Admin: 09/05/24 09:00 Dose: 5 mg Magnesium Hydroxide (Milk Of Magnesia 30 Ml Oral.Susp) 30 ml PO DAILY PRN PRN Reason: Constipation Mirtazapine (Mirtazapine 7.5 Mg Tablet) 7.5 mg PO BEDTIME [facility] Last Admin: 09/05/24 21:12 Dose: 7.5 mg Olanzapine (Olanzapine Odt 10 Mg Tab.Rapdis) 5 mg TRANSLINGU BID PRN PRN Reason: agitation Last Admin: 08/24/24 20:56 Dose: 5 mg Pramipexole Dihydrochloride (Pramipexole Di-Hcl 0.25 Mg Tablet) 0.5 mg PO TID [facility] Last Admin: 09/05/24 21:09 Dose: 0.5 mg Sertraline HCl (Sertraline Hcl 50 Mg Tablet) 50 mg PO DAILY [facility] Last Admin: 09/05/24 09:00 Dose: 50 mg Tamsulosin HCl (Tamsulosin Hcl 0.4 Mg Capsule) 0.8 mg PO BEDTIME [facility] Last Admin: 09/05/24 21:08 Dose: 0.8 mg Allergies Allergies Allergy/AdvReac Type Severity Reaction Status Date / Time No Known Allergies [NKA] Allergy Unknown NONE Verified 06/19/24 20:43 Assessment & Plan Assessment & Plan (1) Schizoaffective disorder: Status: Acute Code(s): F25.9 - Schizoaffective disorder, unspecified (2) UTI (urinary tract infection): Status: Acute Code(s): N39.0 - Urinary tract infection, site not specified (3) Catatonia: Status: Acute Code(s): F06.1 - Catatonic disorder due to known physiological condition Plan Schizoaffective disorder Continue treatment per psychiatry team. Status post ECT treatment today Urinary tract infection Antibiotics changed to Macrobid due to sensitivities Leukocytosis resolved Tolerating antibiotics without issue Cough and congestion PRN updraft nebulizers. Continue use of respiratory device Continue to encourage mobility and out of bed for meals. 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 May need to reconsider ECT however patient had response but after extended period of time was at times not maintained. Patient difficulty tolerating ECT from a respiratory concern in the past. Depakote also use for augmentation 08/24: Continue current regimen and plans. 08/25: Continue current regimen and plans. 08/26/24 Pt gradually imptroving cont ketamine pt dopamine agonist limited response to ect 08/27/2024 Abilify added to augmentation with clozapine at recommendation of catatonia algorithm dopamine agonist also added as part of both catatonia algorithm and Parkinson own and symptoms prior to use of Abilify. Change Abilify to evening monitor for ways worsening gait with Abilify monitor for over-sedation with clozapine Continue ketamine infusion encourage mobilization 08/28/2024 restart sertraline abilify for augmentation dopamine for augmentation monitor for mood changes 08/29/2024 Patient had difficult time today initially was aggressive with staff given Depakote olanzapine was then able to cooperate with getting intravenous treated with ketamine protocol 08/30/2024 Some improvement noted continue ketamine clozapine Depakote Abilify 09/02/2024 Some improvements noted schedule ketamine for tomorrow continue Depakote clozapine dopamine agonist sertraline 50 mg some increased irritability but can be reflective in thought 09/03/24 pt seen some inc sexual activity some iiritability 09/04/24 pt seems to be improving will try and taper ketamine 09/05/24 pt seems to be improving ambulating independantly looking at mtg with chd Reason for continued inpatient stay Substantial Risk for: inability to function, rapid decompensation and med/psych decompensation Time Spent With Patient Time: Total time managing care of this patient today ____ minutes.
[2024-09-06 09:00] VITALS: BP 132/67; PULSE 91; RESP 16; TEMP 36.8; O2SAT 100
[2024-09-06] MEDS: Ferrous Sulfate 324 MG TABLET.DR PO (09:07)
[2024-09-06] MEDS: Heparin Sodium,Porcine Flush 50 UNITS, 0.9 % Sodium Chloride Flush 5 ML IVFLUSH ×3 (09:08→20:37)
--- NOTE | 2024-09-06 11:17 | HO.PSYCHPN ---
Subjective Subjective Date of Service: 09/06/24 Reason For Visit: catatonia Interim History: much improved from prior. lying in bed. states he is moving his bowels, eating, sleeping well. doing exercises in his bed. per staff, flat, withdrawn, visible. eating well, taking meds. coherent speech. Mental Status Exam Mental Status Exam Patient Appearance: Fatigued and Disheveled Patient Orientation: Person and Place Level of Consciousness: Lethargic Patient Behavior: Passive and Fatigued Mood Description: Blunted and Apprehensive Affect Description: Blunted Patient Cognition Impaired: No Ability to Follow Directions: Good Speech Pattern: Monotone and Soft-Spoken Thought Process: Slowed Thinking Thought Content: negative for Suicidal Ideation or negative for Homicidal Ideation Depressive Symptoms: Increased Anxiety Judgement: Fair Diagnostics Vital Signs (24Hr): Vital Signs - 24 hr 09/05/24 20:00 09/06/24 09:00 Temperature 97.3 F 98.2 F Pulse Rate 100 91 Respiratory Rate 16 16 Blood Pressure 134/67 132/67 Pulse Oximetry 96 100 Oxygen Delivery Method Room Air Room Air BMI result Body Mass Index 28.0 Labs 09/01/24 10:56 08/26/24 07:26 Medications Medications Current Medications Acetaminophen (Acetaminophen 325 Mg Tablet) 650 mg PO Q6H PRN PRN Reason: Headache/Pain, Scale 1-10 Last Admin: 09/06/24 02:01 Dose: 650 mg Al Hydroxide/Mg Hydroxide (Magnesium Hydrox/Alum Hydrox 30 Ml Oral.Susp) 30 ml PO Q6H PRN PRN Reason: Heartburn/Nausea Last Admin: 08/17/24 21:50 Dose: 30 ml Albuterol/Ipratropium (Albuterol/Iprat 2.5/0.5mg 3 Ml Ampul.Neb) 3 ml INHALE QID PRN PRN Reason: SOB/wheezing Aripiprazole (Aripiprazole 5 Mg Tablet) 5 mg PO DAILY@1730 [facility] Last Admin: 09/05/24 17:04 Dose: 5 mg Benzocaine (Throat Lozenge, Medicated Lozenge) 1 lozenge MUCOUS MEM Q2H PRN PRN Reason: Sore Throat Clozapine (Clozapine 100 Mg Tablet) 150 mg PO DAILY@1999 [facility] Last Admin: 09/05/24 21:11 Dose: 150 mg Heparin Sodium (Porcine) 50 (units/ Sodium Chloride 5 ml) 0 units IVFLUSH TID [facility] Last Admin: 09/06/24 09:08 Dose: 50 unit Divalproex Sodium (Divalproex Sodium Sprinkles 125 Mg Cap.) 500 mg PO BEDTIME [facility] Last Admin: 09/05/24 21:10 Dose: 500 mg Ferrous Sulfate (Ferrous Sulfate 324 Mg Tablet.Dr) 324 mg PO DAILY [facility] Last Admin: 09/06/24 09:07 Dose: 324 mg Finasteride (Finasteride 5 Mg Tablet) 5 mg PO DAILY [facility] Last Admin: 09/06/24 09:07 Dose: 5 mg Magnesium Hydroxide (Milk Of Magnesia 30 Ml Oral.Susp) 30 ml PO DAILY PRN PRN Reason: Constipation Mirtazapine (Mirtazapine 7.5 Mg Tablet) 7.5 mg PO BEDTIME [facility] Last Admin: 09/05/24 21:12 Dose: 7.5 mg Olanzapine (Olanzapine Odt 10 Mg Tab.Rapdis) 5 mg TRANSLINGU BID PRN PRN Reason: agitation Last Admin: 08/24/24 20:56 Dose: 5 mg Pramipexole Dihydrochloride (Pramipexole Di-Hcl 0.25 Mg Tablet) 0.5 mg PO TID [facility] Last Admin: 09/06/24 09:07 Dose: 0.5 mg Sertraline HCl (Sertraline Hcl 50 Mg Tablet) 50 mg PO DAILY [facility] Last Admin: 09/06/24 09:07 Dose: 50 mg Tamsulosin HCl (Tamsulosin Hcl 0.4 Mg Capsule) 0.8 mg PO BEDTIME [facility] Last Admin: 09/05/24 21:08 Dose: 0.8 mg Allergies Allergies Allergy/AdvReac Type Severity Reaction Status Date / Time No Known Allergies [NKA] Allergy Unknown NONE Verified 06/19/24 20:43 Assessment & Plan Assessment & Plan (1) Schizoaffective disorder: Status: Acute Code(s): F25.9 - Schizoaffective disorder, unspecified (2) UTI (urinary tract infection): Status: Acute Code(s): N39.0 - Urinary tract infection, site not specified (3) Catatonia: Status: Acute Code(s): F06.1 - Catatonic disorder due to known physiological condition Plan Schizoaffective disorder Continue treatment per psychiatry team. Status post ECT treatment today Urinary tract infection Antibiotics changed to Macrobid due to sensitivities Leukocytosis resolved Tolerating antibiotics without issue Cough and congestion PRN updraft nebulizers. Continue use of respiratory device Continue to encourage mobility and out of bed for meals. 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 May need to reconsider ECT however patient had response but after extended period of time was at times not maintained. Patient difficulty tolerating ECT from a respiratory concern in the past. Depakote also use for augmentation 08/24: Continue current regimen and plans. 08/25: Continue current regimen and plans. 08/26/24 Pt gradually imptroving cont ketamine pt dopamine agonist limited response to ect 08/27/2024 Abilify added to augmentation with clozapine at recommendation of catatonia algorithm dopamine agonist also added as part of both catatonia algorithm and Parkinson own and symptoms prior to use of Abilify. Change Abilify to evening monitor for ways worsening gait with Abilify monitor for over-sedation with clozapine Continue ketamine infusion encourage mobilization 08/28/2024 restart sertraline abilify for augmentation dopamine for augmentation monitor for mood changes 08/29/2024 Patient had difficult time today initially was aggressive with staff given Depakote olanzapine was then able to cooperate with getting intravenous treated with ketamine protocol 08/30/2024 Some improvement noted continue ketamine clozapine Depakote Abilify 09/02/2024 Some improvements noted schedule ketamine for tomorrow continue Depakote clozapine dopamine agonist sertraline 50 mg some increased irritability but can be reflective in thought 09/03/24 pt seen some inc sexual activity some iiritability 09/04/24 pt seems to be improving will try and taper ketamine 09/05/24 pt seems to be improving ambulating independantly looking at mtg with chd 09/06 remains improved. conversant, denies problems. sleeping, eating, taking meds. continue current mgmt. Reason for continued inpatient stay Substantial Risk for: inability to function and rapid decompensation Time Spent With Patient Time: Total time managing care of this patient today ____ minutes.
[2024-09-06 15:17] VITALS: BP 132/67; PULSE 91; O2SAT 100
[2024-09-06 20:00] VITALS: BP 124/67; PULSE 99; RESP 16; TEMP 36.4; O2SAT 95
[2024-09-06] MEDS: Divalproex Sodium Sprinkles 125 MG CAP.DR.SPR 500 MG PO (20:32)
[2024-09-07 08:00] VITALS: BP 123/65; PULSE 98; RESP 18; TEMP 2.7; TEMP 36.8; O2SAT 96
[2024-09-07] MEDS: Heparin Sodium,Porcine Flush 50 UNITS, 0.9 % Sodium Chloride Flush 5 ML IVFLUSH ×3 (08:17→20:18)
[2024-09-07] MEDS: Ferrous Sulfate 324 MG TABLET.DR PO (08:18)
--- NOTE | 2024-09-07 08:43 | P.PNPSI_ITS ---
Subjective Subjective Date of Service: 09/07/24 Reason For Visit: catatonia Subjective Notes: Conditional Voluntary Healthcare Proxy: No Guardianship: No Medical Problems Affecting Mental Status: No Interim History: 59 yo WM with hx catatonic schizoaffective do - seems much more himself again- after delerious catatonia- Patient up alert and good eye contact, blunted affect but verbal and engaged- in solo room due to masturbation upset any roommates- Reports sleeping ok , energy a bit low, +TD and tremor Medication Compliance: Yes Side effects from medications: Yes (TD and eps) Attending Groups: Intermittent Review of Systems Acute medical concerns: No Medical Review of Systems: unchanged Mental Status Exam Mental Status Exam Patient Appearance: Unkempt Patient Orientation: Person, Place and Situation Level of Consciousness: Awake and Alert Patient Behavior: Appropriate and Cooperative Mood Description: Anxious Affect Description: Blunted Patient Cognition Impaired: No Ability to Follow Directions: Fair Speech Pattern: Clear Hallucinations: None Delusions: Not Present Thought Process: Intact Thought Content: positive for Goal Oriented Abnormal Motor Activity Signs and Symptoms: Tic Judgement: Fair Diagnostics Vital Signs (24Hr): Vital Signs - 24 hr 09/06/24 09:00 09/06/24 15:17 09/06/24 20:00 Temperature 98.2 F 97.5 F Pulse Rate 91 91 99 Respiratory Rate 16 16 Blood Pressure 132/67 132/67 124/67 Pulse Oximetry 100 100 95 Oxygen Delivery Method Room Air Room Air 09/07/24 08:00 Temperature 36.8 F L Pulse Rate 98 Respiratory Rate 18 Blood Pressure 123/65 Pulse Oximetry 96 Oxygen Delivery Method Room Air BMI result Body Mass Index 28.0 Labs 09/01/24 10:56 08/26/24 07:26 Medications Medications Current Medications Acetaminophen (Acetaminophen 325 Mg Tablet) 650 mg PO Q6H PRN PRN Reason: Headache/Pain, Scale 1-10 Last Admin: 09/06/24 02:01 Dose: 650 mg Al Hydroxide/Mg Hydroxide (Magnesium Hydrox/Alum Hydrox 30 Ml Oral.Susp) 30 ml PO Q6H PRN PRN Reason: Heartburn/Nausea Last Admin: 08/17/24 21:50 Dose: 30 ml Albuterol/Ipratropium (Albuterol/Iprat 2.5/0.5mg 3 Ml Ampul.Neb) 3 ml INHALE QID PRN PRN Reason: SOB/wheezing Aripiprazole (Aripiprazole 5 Mg Tablet) 5 mg PO DAILY@1730 [facility] Last Admin: 09/06/24 20:33 Dose: 5 mg Benzocaine (Throat Lozenge, Medicated Lozenge) 1 lozenge MUCOUS MEM Q2H PRN PRN Reason: Sore Throat Clozapine (Clozapine 100 Mg Tablet) 150 mg PO DAILY@2000 [facility] Last Admin: 09/06/24 20:34 Dose: 150 mg Heparin Sodium (Porcine) 50 (units/ Sodium Chloride 5 ml) 0 units IVFLUSH TID [facility] Last Admin: 09/07/24 08:17 Dose: 50 unit Divalproex Sodium (Divalproex Sodium Sprinkles 125 Mg Cap.Dr.Spr) 500 mg PO BEDTIME [facility] Last Admin: 09/06/24 20:32 Dose: 500 mg Ferrous Sulfate (Ferrous Sulfate 324 Mg Tablet.Dr) 324 mg PO DAILY [facility] Last Admin: 09/07/24 08:18 Dose: 324 mg Finasteride (Finasteride 5 Mg Tablet) 5 mg PO DAILY [facility] Last Admin: 09/07/24 08:18 Dose: 5 mg Magnesium Hydroxide (Milk Of Magnesia 30 Ml Oral.Susp) 30 ml PO DAILY PRN PRN Reason: Constipation Mirtazapine (Mirtazapine 7.5 Mg Tablet) 7.5 mg PO BEDTIME [facility] Last Admin: 09/06/24 20:34 Dose: 7.5 mg Olanzapine (Olanzapine Odt 10 Mg Tab.Rapdis) 5 mg TRANSLINGU BID PRN PRN Reason: agitation Last Admin: 08/24/24 20:56 Dose: 5 mg Pramipexole Dihydrochloride (Pramipexole Di-Hcl 0.25 Mg Tablet) 0.5 mg PO TID [facility] Last Admin: 09/07/24 08:18 Dose: 0.5 mg Sertraline HCl (Sertraline Hcl 50 Mg Tablet) 50 mg PO DAILY [facility] Last Admin: 09/07/24 08:18 Dose: 50 mg Tamsulosin HCl (Tamsulosin Hcl 0.4 Mg Capsule) 0.8 mg PO BEDTIME [facility] Last Admin: 09/06/24 20:33 Dose: 0.8 mg Allergies Allergies Allergy/AdvReac Type Severity Reaction Status Date / Time No Known Allergies [NKA] Allergy Unknown NONE Verified 06/19/24 20:43 Assessment & Plan Assessment & Plan (1) Schizoaffective disorder: Status: Acute Code(s): F25.9 - Schizoaffective disorder, unspecified (2) UTI (urinary tract infection): Status: Acute Code(s): N39.0 - Urinary tract infection, site not specified (3) Catatonia: Status: Acute Code(s): F06.1 - Catatonic disorder due to known physiological condition Plan Schizoaffective disorder Continue treatment per psychiatry team. Status post ECT treatment today Urinary tract infection Antibiotics changed to Macrobid due to sensitivities Leukocytosis resolved Tolerating antibiotics without issue Cough and congestion PRN updraft nebulizers. Continue use of respiratory device Continue to encourage mobility and out of bed for meals. 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 May need to reconsider ECT however patient had response but after extended period of time was at times not maintained. Patient difficulty tolerating ECT from a respiratory concern in the past. Depakote also use for augmentation 08/24: Continue current regimen and plans. 08/25: Continue current regimen and plans. 08/26/24 Pt gradually imptroving cont ketamine pt dopamine agonist limited response to ect 08/27/2024 Abilify added to augmentation with clozapine at recommendation of catatonia algorithm dopamine agonist also added as part of both catatonia algorithm and Parkinson own and symptoms prior to use of Abilify. Change Abilify to evening monitor for ways worsening gait with Abilify monitor for over-sedation with clozapine Continue ketamine infusion encourage mobilization 08/28/2024 restart sertraline abilify for augmentation dopamine for augmentation monitor for mood changes 08/29/2024 Patient had difficult time today initially was aggressive with staff given Depakote olanzapine was then able to cooperate with getting intravenous treated with ketamine protocol 08/30/2024 Some improvement noted continue ketamine clozapine Depakote Abilify 09/02/2024 Some improvements noted schedule ketamine for tomorrow continue Depakote clozapine dopamine agonist sertraline 50 mg some increased irritability but can be reflective in thought 09/03/24 pt seen some inc sexual activity some iiritability 09/04/24 pt seems to be improving will try and taper ketamine 09/05/24 pt seems to be improving ambulating independantly looking at mtg with chd 09/06 remains improved. conversant, denies problems. sleeping, eating, taking meds. continue current mgmt. 09/07 - so wonderful to see Benjamin feeling better again- dc planning to include support around compliance around medications on dc- ?VNA or agency support other than family Patient educated on: diagnosis and medical condition Informed Consent: understands Reason for continued inpatient stay Substantial Risk for: rapid decompensation and med/psych decompensation Time Spent With Patient Time: Total time managing care of this patient today ____ minutes.
[2024-09-07 20:00] VITALS: BP 118/68; PULSE 82; RESP 18; TEMP 36.6; O2SAT 94
[2024-09-07] MEDS: Divalproex Sodium Sprinkles 125 MG CAP.DR.SPR 500 MG PO (20:15)
[2024-09-08 08:30] VITALS: BP 121/84; PULSE 78; RESP 19; TEMP 36.7; O2SAT 99
[2024-09-08] MEDS: Ferrous Sulfate 324 MG TABLET.DR PO (08:36)
[2024-09-08] MEDS: Heparin Sodium,Porcine Flush 50 UNITS, 0.9 % Sodium Chloride Flush 5 ML IVFLUSH ×3 (08:51→21:16)
--- NOTE | 2024-09-08 09:43 | HO.PSYCHPN ---
Subjective Subjective Date of Service: 09/08/24 Reason For Visit: catatonia Subjective Notes: Conditional Voluntary Medical Problems Affecting Mental Status: No Interim History: 59 yo recovering from catatonia, spending time in his room xs masturbating- otherwise feeling better- ongoing tremor- able to sit up and engage with providers- Medication Compliance: Yes Side effects from medications: Yes (TD and eps) Attending Groups: Intermittent Review of Systems Acute medical concerns: No Medical Review of Systems: unchanged Mental Status Exam Mental Status Exam Patient Appearance: Unkempt Patient Orientation: Person, Place and Situation Level of Consciousness: Awake and Alert Patient Behavior: Appropriate and Cooperative Mood Description: Anxious Affect Description: Blunted Patient Cognition Impaired: No Ability to Follow Directions: Fair Speech Pattern: Clear Hallucinations: None Delusions: Not Present Thought Process: Intact Thought Content: positive for Goal Oriented Abnormal Motor Activity Signs and Symptoms: Tic Judgement: Fair Diagnostics Vital Signs (24Hr): Vital Signs - 24 hr 09/07/24 20:00 09/08/24 08:30 Temperature 97.9 F 98.1 F Pulse Rate 82 78 Respiratory Rate 18 19 Blood Pressure 118/68 121/84 Pulse Oximetry 94 99 Oxygen Delivery Method Room Air Room Air BMI result Body Mass Index 28.0 Labs 09/01/24 10:56 08/26/24 07:26 Medications Medications Current Medications Acetaminophen (Acetaminophen 325 Mg Tablet) 650 mg PO Q6H PRN PRN Reason: Headache/Pain, Scale 1-10 Last Admin: 09/06/24 02:01 Dose: 650 mg Al Hydroxide/Mg Hydroxide (Magnesium Hydrox/Alum Hydrox 30 Ml Oral.Susp) 30 ml PO Q6H PRN PRN Reason: Heartburn/Nausea Last Admin: 08/17/24 21:50 Dose: 30 ml Aripiprazole (Aripiprazole 5 Mg Tablet) 5 mg PO DAILY@1730 [facility] Last Admin: 09/07/24 18:08 Dose: 5 mg Benzocaine (Throat Lozenge, Medicated Lozenge) 1 lozenge MUCOUS MEM Q2H PRN PRN Reason: Sore Throat Clozapine (Clozapine 100 Mg Tablet) 150 mg PO DAILY@2000 [facility] Last Admin: 09/07/24 20:15 Dose: 150 mg Heparin Sodium (Porcine) 50 (units/ Sodium Chloride 5 ml) 0 units IVFLUSH TID [facility] Last Admin: 09/08/24 08:51 Dose: 50 unit Divalproex Sodium (Divalproex Sodium Sprinkles 125 Mg Cap..Spr) 500 mg PO BEDTIME [facility] Last Admin: 09/07/24 20:15 Dose: 500 mg Ferrous Sulfate (Ferrous Sulfate 324 Mg Tablet.Dr) 324 mg PO DAILY [facility] Last Admin: 09/08/24 08:36 Dose: 324 mg Finasteride (Finasteride 5 Mg Tablet) 5 mg PO DAILY [facility] Last Admin: 09/08/24 08:37 Dose: 5 mg Magnesium Hydroxide (Milk Of Magnesia 30 Ml Oral.Susp) 30 ml PO DAILY PRN PRN Reason: Constipation Mirtazapine (Mirtazapine 7.5 Mg Tablet) 7.5 mg PO BEDTIME [facility] Last Admin: 09/07/24 20:16 Dose: 7.5 mg Olanzapine (Olanzapine Odt 10 Mg Tab.Rapdis) 5 mg TRANSLINGU BID PRN PRN Reason: agitation Last Admin: 08/24/24 20:56 Dose: 5 mg Pramipexole Dihydrochloride (Pramipexole Di-Hcl 0.25 Mg Tablet) 0.5 mg PO TID [facility] Last Admin: 09/08/24 08:36 Dose: 0.5 mg Sertraline HCl (Sertraline Hcl 50 Mg Tablet) 50 mg PO DAILY [facility] Last Admin: 09/08/24 08:36 Dose: 50 mg Tamsulosin HCl (Tamsulosin Hcl 0.4 Mg Capsule) 0.8 mg PO BEDTIME [facility] Last Admin: 09/07/24 20:17 Dose: 0.8 mg Allergies Allergies Allergy/AdvReac Type Severity Reaction Status Date / Time No Known Allergies [NKA] Allergy Unknown NONE Verified 06/19/24 20:43 Assessment & Plan Assessment & Plan (1) Schizoaffective disorder: Status: Acute Code(s): F25.9 - Schizoaffective disorder, unspecified (2) UTI (urinary tract infection): Status: Acute Code(s): N39.0 - Urinary tract infection, site not specified (3) Catatonia: Status: Acute Code(s): F06.1 - Catatonic disorder due to known physiological condition Plan Schizoaffective disorder Continue treatment per psychiatry team. Status post ECT treatment today Urinary tract infection Antibiotics changed to Macrobid due to sensitivities Leukocytosis resolved Tolerating antibiotics without issue Cough and congestion PRN updraft nebulizers. Continue use of respiratory device Continue to encourage mobility and out of bed for meals. 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 May need to reconsider ECT however patient had response but after extended period of time was at times not maintained. Patient difficulty tolerating ECT from a respiratory concern in the past. Depakote also use for augmentation 08/24: Continue current regimen and plans. 08/25: Continue current regimen and plans. 08/26/24 Pt gradually imptroving cont ketamine pt dopamine agonist limited response to ect 08/27/2024 Abilify added to augmentation with clozapine at recommendation of catatonia algorithm dopamine agonist also added as part of both catatonia algorithm and Parkinson own and symptoms prior to use of Abilify. Change Abilify to evening monitor for ways worsening gait with Abilify monitor for over-sedation with clozapine Continue ketamine infusion encourage mobilization 08/28/2024 restart sertraline abilify for augmentation dopamine for augmentation monitor for mood changes 08/29/2024 Patient had difficult time today initially was aggressive with staff given Depakote olanzapine was then able to cooperate with getting intravenous treated with ketamine protocol 08/30/2024 Some improvement noted continue ketamine clozapine Depakote Abilify 09/02/2024 Some improvements noted schedule ketamine for tomorrow continue Depakote clozapine dopamine agonist sertraline 50 mg some increased irritability but can be reflective in thought 09/03/24 pt seen some inc sexual activity some iiritability 09/04/24 pt seems to be improving will try and taper ketamine 09/05/24 pt seems to be improving ambulating independantly looking at mtg with chd 09/06 remains improved. conversant, denies problems. sleeping, eating, taking meds. continue current mgmt. 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
[2024-09-08 20:00] VITALS: BP 125/66; PULSE 88; RESP 16; TEMP 36.5; O2SAT 96
[2024-09-08] MEDS: Divalproex Sodium Sprinkles 125 MG CAP.DR.SPR 500 MG PO (21:07)
--- NOTE | 2024-09-09 09:21 | PM.EVENT ---
Event Note Date of Service: 09/09/24 Event Note: Notified by nursing that patient had swelling to his left wrist. Patient has a midline in his left arm. Minimal swelling to left wrist, denies any pain, no redness, no warmth. Patient has full range of motion. Midline is functional. We will check a ultrasound to rule out DVT. Time Spent With Patient Time: Total time managing care of this patient today ____ minutes.
--- NOTE | 2024-09-09 09:23 | PC.NURSE ---
This nurse observed swelling in L wrist-same side as midline. Reported to Psych provider and medical provider. US ordered.
[2024-09-09 09:36] VITALS: BP 120/68; PULSE 98; RESP 16; TEMP 37; O2SAT 96
[2024-09-09] MEDS: Heparin Sodium,Porcine Flush 50 UNITS, 0.9 % Sodium Chloride Flush 5 ML IVFLUSH ×3 (09:38→21:28)
[2024-09-09] MEDS: Ferrous Sulfate 324 MG TABLET.DR PO (09:38)
--- NOTE | 2024-09-09 13:28 | HO.PSYCHPN ---
Subjective Subjective Date of Service: 09/09/24 Reason For Visit: catatonia Interim History: in bed, awake and alert, engaging. reports he is doing well. discuss ketamine Tx and plan to await Dr. Huerta's return for next steps. pt reports his father visited over the weekend. per staff, slept 8hrs. Right wrist swelling- seen by hospitalist. Stable. Mental Status Exam Mental Status Exam Patient Appearance: Disheveled and Appropriate Patient Orientation: Person and Place Level of Consciousness: Awake and Alert Patient Behavior: Appropriate Mood Description: Blunted and Apprehensive Affect Description: Blunted Patient Cognition Impaired: No Ability to Follow Directions: Good Speech Pattern: Monotone and Soft-Spoken Thought Process: Slowed Thinking Thought Content: negative for Suicidal Ideation or negative for Homicidal Ideation Depressive Symptoms: Increased Anxiety Judgement: Fair Diagnostics Vital Signs (24Hr): Vital Signs - 24 hr 09/08/24 20:00 09/09/24 09:36 Temperature 97.7 F 98.6 F Pulse Rate 88 98 Respiratory Rate 16 16 Blood Pressure 125/66 120/68 Pulse Oximetry 96 96 Oxygen Delivery Method Room Air Room Air BMI result Body Mass Index 28.0 Labs 09/01/24 10:56 08/26/24 07:26 Medications Medications Current Medications Acetaminophen (Acetaminophen 325 Mg Tablet) 650 mg PO Q6H PRN PRN Reason: Headache/Pain, Scale 1-10 Last Admin: 09/06/24 02:01 Dose: 650 mg Al Hydroxide/Mg Hydroxide (Magnesium Hydrox/Alum Hydrox 30 Ml Oral.Susp) 30 ml PO Q6H PRN PRN Reason: Heartburn/Nausea Last Admin: 08/17/24 21:50 Dose: 30 ml Albuterol/Ipratropium (Albuterol/Iprat 2.5/0.5mg 3 Ml Ampul.Neb) 3 ml INHALE QID PRN PRN Reason: wheezing Aripiprazole (Aripiprazole 5 Mg Tablet) 5 mg PO DAILY@1730 [facility] Last Admin: 09/08/24 17:06 Dose: 5 mg Benzocaine (Throat Lozenge, Medicated Lozenge) 1 lozenge MUCOUS MEM Q2H PRN PRN Reason: Sore Throat Clozapine (Clozapine 100 Mg Tablet) 150 mg PO DAILY@2000 [facility] Last Admin: 09/08/24 21:05 Dose: 150 mg Heparin Sodium (Porcine) 50 (units/ Sodium Chloride 5 ml) 0 units IVFLUSH TID [facility] Last Admin: 09/09/24 09:38 Dose: 50 unit Divalproex Sodium (Divalproex Sodium Sprinkles 125 Mg Cap..Spr) 500 mg PO BEDTIME [facility] Last Admin: 09/08/24 21:07 Dose: 500 mg Ferrous Sulfate (Ferrous Sulfate 324 Mg Tablet.Dr) 324 mg PO DAILY [facility] Last Admin: 09/09/24 09:38 Dose: 324 mg Finasteride (Finasteride 5 Mg Tablet) 5 mg PO DAILY [facility] Last Admin: 09/09/24 09:38 Dose: 5 mg Magnesium Hydroxide (Milk Of Magnesia 30 Ml Oral.Susp) 30 ml PO DAILY PRN PRN Reason: Constipation Mirtazapine (Mirtazapine 7.5 Mg Tablet) 7.5 mg PO BEDTIME [facility] Last Admin: 09/08/24 21:06 Dose: 7.5 mg Olanzapine (Olanzapine Odt 10 Mg Tab.Rapdis) 5 mg TRANSLINGU BID PRN PRN Reason: agitation Last Admin: 08/24/24 20:56 Dose: 5 mg Pramipexole Dihydrochloride (Pramipexole Di-Hcl 0.25 Mg Tablet) 0.5 mg PO TID [facility] Last Admin: 09/09/24 09:38 Dose: 0.5 mg Sertraline HCl (Sertraline Hcl 50 Mg Tablet) 50 mg PO DAILY [facility] Last Admin: 09/09/24 09:38 Dose: 50 mg Tamsulosin HCl (Tamsulosin Hcl 0.4 Mg Capsule) 0.8 mg PO BEDTIME [facility] Last Admin: 09/08/24 21:07 Dose: 0.8 mg Allergies Allergies Allergy/AdvReac Type Severity Reaction Status Date / Time No Known Allergies [NKA] Allergy Unknown NONE Verified 06/19/24 20:43 Assessment & Plan Assessment & Plan (1) Schizoaffective disorder: Status: Acute Code(s): F25.9 - Schizoaffective disorder, unspecified (2) UTI (urinary tract infection): Status: Acute Code(s): N39.0 - Urinary tract infection, site not specified (3) Catatonia: Status: Acute Code(s): F06.1 - Catatonic disorder due to known physiological condition Plan Schizoaffective disorder Continue treatment per psychiatry team. Status post ECT treatment today Urinary tract infection Antibiotics changed to Macrobid due to sensitivities Leukocytosis resolved Tolerating antibiotics without issue Cough and congestion PRN updraft nebulizers. Continue use of respiratory device Continue to encourage mobility and out of bed for meals. 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 May need to reconsider ECT however patient had response but after extended period of time was at times not maintained. Patient difficulty tolerating ECT from a respiratory concern in the past. Depakote also use for augmentation 08/24: Continue current regimen and plans. 08/25: Continue current regimen and plans. 08/26/24 Pt gradually imptroving cont ketamine pt dopamine agonist limited response to ect 08/27/2024 Abilify added to augmentation with clozapine at recommendation of catatonia algorithm dopamine agonist also added as part of both catatonia algorithm and Parkinson own and symptoms prior to use of Abilify. Change Abilify to evening monitor for ways worsening gait with Abilify monitor for over-sedation with clozapine Continue ketamine infusion encourage mobilization 08/28/2024 restart sertraline abilify for augmentation dopamine for augmentation monitor for mood changes 08/29/2024 Patient had difficult time today initially was aggressive with staff given Depakote olanzapine was then able to cooperate with getting intravenous treated with ketamine protocol 08/30/2024 Some improvement noted continue ketamine clozapine Depakote Abilify 09/02/2024 Some improvements noted schedule ketamine for tomorrow continue Depakote clozapine dopamine agonist sertraline 50 mg some increased irritability but can be reflective in thought 09/03/24 pt seen some inc sexual activity some iiritability 09/04/24 pt seems to be improving will try and taper ketamine 09/05/24 pt seems to be improving ambulating independantly looking at mtg with chd 09/06 remains improved. conversant, denies problems. sleeping, eating, taking meds. continue current mgmt. 09/07 - so wonderful to see Benjamin feeling better again- dc planning to include support around compliance around medications on dc- ?VNA or agency support other than family 09/08 ongoing xs masturbation- otherwise recovering from catatonia compliant with meds, some skilled nursing s/e in movement do 09/09: much improved from earlier. continue current mgmt. Reason for continued inpatient stay Substantial Risk for: inability to function and rapid decompensation Time Spent With Patient Time: Total time managing care of this patient today __25__ minutes.
[2024-09-09 16:11] VITALS: BP 120/68; PULSE 98; O2SAT 96
--- NOTE | 2024-09-09 17:31 | PC.NURSE ---
MId-line dressing changed today. Pt tolerated well, no concerns noted or reported. No s&s of infection.
[2024-09-09 20:00] VITALS: BP 117/62; PULSE 88; RESP 18; TEMP 36.6; O2SAT 96
[2024-09-09] MEDS: Divalproex Sodium Sprinkles 125 MG CAP.DR.SPR 500 MG PO (20:08)
--- NOTE | 2024-09-09 20:54 | PM.EVENT ---
Event Note Date of Service: 09/09/24 Event Note: urgent consult placed as pt had an US LUE today for swelling and pain in the wrist. US + for nonocclusive thrombus left cephalic vein. at this time would recommend conservative measures as this is a superficial vein: NSAIDs PRN, warm compresses and elevate the arm. day team to follow up with pt in the AM. Time Spent With Patient Time: Total time managing care of this patient today ____ minutes.
--- NOTE | 2024-09-09 21:40 | PC.NURSE ---
Hospitalist assessed the midline and okayed to continue flush order. Heparin flush completed as ordered patient complaint. will continue to monitor the IV sites. Per hospitalist day shift will follow up with the case.
[2024-09-10 07:55] VITALS: BP 112/60; PULSE 81; RESP 18; TEMP 36.8; O2SAT 96
[2024-09-10] MEDS: Ferrous Sulfate 324 MG TABLET.DR PO (08:26)
[2024-09-10 08:38] LABS: Neut%MD 71.5 %; WBCANC 7.1 X10*3/uL
[2024-09-10 08:52] LABS: Anion Gap 15 (12-20); Blood Urea Nitrogen 25 mg/dL (9-16); Calcium 9.4 mg/dL (8.4-10.2); Carbon Dioxide 25 mmol/L (22-29); Chloride 109 mmol/L (96-108); Creatinine Clr Calc Pharmacy 73.9; Estimated Glomerular Filt Rate > 60; Potassium 4.5 mmol/L (3.3-5.1); Sodium 144 mmol/L (135-145)
--- NOTE | 2024-09-10 09:48 | P.PNIM_ITS ---
Subjective Subjective Date of Service: 09/10/24 Interval History: 59-year-old male who developed mild swelling in his left upper extremity. Patient had ultrasound that demonstrated a nonocclusive thrombus in his left cephalic vein. Discussed case with Dr. Carlson from Hematology who recommended 4 weeks of Eliquis. PICC line to be removed. On exam he has no pain, no redness, no swelling, mild swelling in his left upper extremity. He otherwise feels well. No CP or SOB. He is alert and answering questions. Engaging with provider. Review of Systems Denies any shortness of breath, chest pain, dizziness, lightheadedness, abdominal pain or discomfort, nausea vomiting or diarrhea Physical Exam 2 Vital Signs: Vital Signs: Last Vital Signs Temp 97.9 F 09/09/24 20:00 Pulse 88 09/09/24 20:00 Resp 18 09/09/24 20:00 BP 117/62 09/09/24 20:00 Pulse Ox 96 09/09/24 20:00 O2 Del Method Room Air 09/09/24 20:00 BMI result Body Mass Index 28.0 CONST: Alert and oriented today, in NAD. Well nourished HEENT: Normocephalic, atraumatic, MMM, Eyes clear RESP: Lungs clear, RRR even and regular HEART:,RRR, S1, S2. trace edema to LUE GI:Abdomen Soft NT, ND. + BS times four :Deferred SKIN: Warm dry and intact, no visible lesions or rashes NEURO:CN II-XII Intact bilaterally, Sensation intact. Speech clear PSYCH: Normal affect Objective Data Active Medications Acetaminophen (Acetaminophen 325 Mg Tablet) 650 mg PO Q6H PRN PRN Reason: Headache/Pain, Scale 1-10 Last Admin: 09/06/24 02:01 Dose: 650 mg Documented By: ANTONIA Al Hydroxide/Mg Hydroxide (Magnesium Hydrox/Alum Hydrox 30 Ml Oral.Susp) 30 ml PO Q6H PRN PRN Reason: Heartburn/Nausea Last Admin: 08/17/24 21:50 Dose: 30 ml Documented By: ANTONIA Albuterol/Ipratropium (Albuterol/Iprat 2.5/0.5mg 3 Ml Ampul.Neb) 3 ml INHALE QID PRN PRN Reason: wheezing Apixaban (Apixaban 5 Mg Tablet) 10 mg PO BID [facility] Stop: 09/16/24 21:01 Last Admin: 09/10/24 08:52 Dose: 10 mg Documented By: KUSH Apixaban (Apixaban 5 Mg Tablet) 5 mg PO BID [facility] Stop: 10/08/24 08:59 Aripiprazole (Aripiprazole 5 Mg Tablet) 5 mg PO DAILY@1730 [facility] Last Admin: 09/09/24 17:30 Dose: 5 mg Documented By: JACKLYN Benzocaine (Throat Lozenge, Medicated Lozenge) 1 lozenge MUCOUS MEM Q2H PRN PRN Reason: Sore Throat Clozapine (Clozapine 100 Mg Tablet) 150 mg PO DAILY@1999 [facility] Last Admin: 09/09/24 20:09 Dose: 150 mg Documented By: CADENCE Divalproex Sodium (Divalproex Sodium Sprinkles 125 Mg Cap.Spr) 500 mg PO BEDTIME [facility] Last Admin: 09/09/24 20:08 Dose: 500 mg Documented By: CADENCE Ferrous Sulfate (Ferrous Sulfate 324 Mg Tablet.Dr) 324 mg PO DAILY [facility] Last Admin: 09/10/24 08:26 Dose: 324 mg Documented By: KUSH Finasteride (Finasteride 5 Mg Tablet) 5 mg PO DAILY [facility] Last Admin: 09/10/24 08:26 Dose: 5 mg Documented By: KUSH Magnesium Hydroxide (Milk Of Magnesia 30 Ml Oral.Susp) 30 ml PO DAILY PRN PRN Reason: Constipation Mirtazapine (Mirtazapine 7.5 Mg Tablet) 7.5 mg PO BEDTIME [facility] Last Admin: 09/09/24 20:08 Dose: 7.5 mg Documented By: CADENCE Olanzapine (Olanzapine Odt 10 Mg Tab.Rapdis) 5 mg TRANSLINGU BID PRN PRN Reason: agitation Last Admin: 08/24/24 20:56 Dose: 5 mg Documented By: ARIANNA Pramipexole Dihydrochloride (Pramipexole Di-Hcl 0.25 Mg Tablet) 0.5 mg PO TID [facility] Last Admin: 09/10/24 08:25 Dose: 0.5 mg Documented By: KUSH Sertraline HCl (Sertraline Hcl 50 Mg Tablet) 50 mg PO DAILY [facility] Last Admin: 09/10/24 08:26 Dose: 50 mg Documented By: KUSH Tamsulosin HCl (Tamsulosin Hcl 0.4 Mg Capsule) 0.8 mg PO BEDTIME [facility] Last Admin: 09/09/24 20:08 Dose: 0.8 mg Documented By: CADENCE Labs 09/01/24 10:56 09/10/24 07:44 Labs: Laboratory Results - last 24 hr 09/10/24 07:44 Absolute Neuts (auto) 5.1 Anion Gap 15 Estim Creat Clear Calc 73.9 Estimated GFR > 60 Random Glucose 111 Calcium 9.4 D Imaging Venous US: Radiologist's impression: Impressions Venous Duplex 09/09/24 14:33 IMPRESSION: Nonocclusive thrombus, left cephalic vein. Electronically signed by: Mayank Irwin MD 09/09/2024 03:31 PM EDT Assessment and Plan (1) Left cephalic vein thrombosis: Status: Acute Plan Nonocclusive thrombus left cephalic vein Discuss case with Aldo who recommended 4 weeks of Eliquis which is ordered Elevate extremity Midline to be removed-we will defer decision to reinsert midline for ketamine treatments to psychiatry team. Quality Stroke Does the patient have a stroke diagnosis?: No VTE Prior VTE?: Yes Approximate Date of Prior VTE: 09/09/24 VTE Risk Level:: Medical - moderate - high VTE Device Contraindication: Treatment Not Indicated VTE Drug Contraindication: N/A - Med Ordered
--- NOTE | 2024-09-10 14:03 | P.PNPSI_ITS ---
Subjective Subjective Date of Service: 09/03/24 Reason For Visit: catatonia Subjective Notes: Conditional Voluntary Healthcare Proxy: Yes Interim History: Patient seen in psychiatric follow-up mood can be somewhat labile but has been ambulating on his own okay on 5 minute checks patient was diagnosed with cephalic vein clot started on Eliquis ketamine was held for today Medication Compliance: Yes Review of Systems Acute medical concerns: Yes Cephalic vein clot Diagnostics Vital Signs (24Hr): Vital Signs - 24 hr 09/09/24 16:11 09/09/24 20:00 09/10/24 07:55 Temperature 97.9 F 98.2 F Pulse Rate 98 88 81 Respiratory Rate 18 18 Blood Pressure 120/68 117/62 112/60 Pulse Oximetry 96 96 96 Oxygen Delivery Method Room Air Room Air BMI result Body Mass Index 28.0 Labs 09/01/24 10:56 09/10/24 07:44 Labs: Laboratory Results - last 48 hr 09/10/24 07:44 Absolute Neuts (auto) 5.1 Sodium 144 Potassium 4.5 Chloride 109 H Carbon Dioxide 25 Anion Gap 15 BUN 25 H Creatinine 1.14 Estim Creat Clear Calc 73.9 Estimated GFR > 60 Random Glucose 111 Calcium 9.4 D Imaging Radiology Impressions: ITS Impressions Venous Duplex 09/09/24 14:33 IMPRESSION: Nonocclusive thrombus, left cephalic vein. Electronically signed by: Mayank Irwin MD 09/09/2024 03:31 PM EDT RP Medications Medications Current Medications Acetaminophen (Acetaminophen 325 Mg Tablet) 650 mg PO Q6H PRN PRN Reason: Headache/Pain, Scale 1-10 Last Admin: 09/06/24 02:01 Dose: 650 mg Al Hydroxide/Mg Hydroxide (Magnesium Hydrox/Alum Hydrox 30 Ml Oral.Susp) 30 ml PO Q6H PRN PRN Reason: Heartburn/Nausea Last Admin: 08/17/24 21:50 Dose: 30 ml Albuterol/Ipratropium (Albuterol/Iprat 2.5/0.5mg 3 Ml Ampul.Neb) 3 ml INHALE QID PRN PRN Reason: wheezing Apixaban (Apixaban 5 Mg Tablet) 10 mg PO BID [facility] Stop: 09/16/24 21:01 Last Admin: 09/10/24 08:52 Dose: 10 mg Apixaban (Apixaban 5 Mg Tablet) 5 mg PO BID [facility] Stop: 10/08/24 08:59 Aripiprazole (Aripiprazole 5 Mg Tablet) 5 mg PO DAILY@1730 [facility] Last Admin: 09/09/24 17:30 Dose: 5 mg Benzocaine (Throat Lozenge, Medicated Lozenge) 1 lozenge MUCOUS MEM Q2H PRN PRN Reason: Sore Throat Clozapine (Clozapine 100 Mg Tablet) 150 mg PO DAILY@2000 [facility] Last Admin: 09/09/24 20:09 Dose: 150 mg Divalproex Sodium (Divalproex Sodium Sprinkles 125 Mg Cap.Dr.Spr) 500 mg PO BEDTIME [facility] Last Admin: 09/09/24 20:08 Dose: 500 mg Ferrous Sulfate (Ferrous Sulfate 324 Mg Tablet.Dr) 324 mg PO DAILY [facility] Last Admin: 09/10/24 08:26 Dose: 324 mg Finasteride (Finasteride 5 Mg Tablet) 5 mg PO DAILY [facility] Last Admin: 09/10/24 08:26 Dose: 5 mg Magnesium Hydroxide (Milk Of Magnesia 30 Ml Oral.Susp) 30 ml PO DAILY PRN PRN Reason: Constipation Mirtazapine (Mirtazapine 7.5 Mg Tablet) 7.5 mg PO BEDTIME [facility] Last Admin: 09/09/24 20:08 Dose: 7.5 mg Olanzapine (Olanzapine Odt 10 Mg Tab.Rapdis) 5 mg TRANSLINGU BID PRN PRN Reason: agitation Last Admin: 08/24/24 20:56 Dose: 5 mg Pramipexole Dihydrochloride (Pramipexole Di-Hcl 0.25 Mg Tablet) 0.5 mg PO TID [facility] Last Admin: 09/10/24 08:25 Dose: 0.5 mg Sertraline HCl (Sertraline Hcl 50 Mg Tablet) 50 mg PO DAILY [facility] Last Admin: 09/10/24 08:26 Dose: 50 mg Tamsulosin HCl (Tamsulosin Hcl 0.4 Mg Capsule) 0.8 mg PO BEDTIME [facility] Last Admin: 09/09/24 20:08 Dose: 0.8 mg Allergies Allergies Allergy/AdvReac Type Severity Reaction Status Date / Time No Known Allergies [NKA] Allergy Unknown NONE Verified 06/19/24 20:43 Assessment & Plan Assessment & Plan (1) Left cephalic vein thrombosis: Status: Acute Code(s): I82.612 - Acute embolism and thrombosis of superficial veins of left upper extremity Plan Nonocclusive thrombus left cephalic vein Discuss case with Aldo who recommended 4 weeks of Eliquis which is ordered Elevate extremity Midline to be removed-we will defer decision to reinsert midline for ketamine treatments to psychiatry team. 09/10/2024 Ketamine scheduled for 2 days from today midline to be placed Eliquis ordered case for cephalic vein thrombosis being managed by hospitalist service Informed Consent: further education needed Reason for continued inpatient stay Substantial Risk for: inability to function and med/psych decompensation Time Spent With Patient Time: Total time managing care of this patient today _30___ minutes.
--- NOTE | 2024-09-10 14:27 | PC.NURSE ---
Addendum entered by Grieslda Santos RN 09/10/24 15:13: Pt catheter measured at 8CM. Original Note: Midline removed from Left AC at 1430. no s/s of infection, no redness or drainage, catheter length 8 , pt tolerated procedure.
[2024-09-10 19:40] VITALS: BP 113/57; PULSE 78; RESP 18; TEMP 36.6; O2SAT 96
[2024-09-10] MEDS: Divalproex Sodium Sprinkles 125 MG CAP.DR.SPR 500 MG PO (19:45)
[2024-09-11 08:08] VITALS: BP 108/58; PULSE 83; RESP 20; TEMP 36.6; O2SAT 96
[2024-09-11] MEDS: Ferrous Sulfate 324 MG TABLET.DR PO (08:10)
[2024-09-11 12:36] LABS: MANUAL DIFF FLAG NO
[2024-09-11 12:40] LABS: Hematocrit 37.4 % (42.0-52.0); Hemoglobin 11.6 g/dl (14.0-18.0); Imm Gran Abs Auto 0.05 X10*3/uL (0.00-0.03); Imm Gran Pct Auto 0.7 % (0.0-0.4); Lymphocytes Absolute Auto 1.7 X10*3/uL (1.2-4.9); Mean Corpuscular HGB Conc 31.0 g/dl (31.0-36.0); Mean Corpuscular Hemoglobin 28.2 pg (27.0-33.0); Mean Corpuscular Volume 90.8 fL (80.0-98.0); NRBC Abs Auto 0.000 X10*3/uL (0.0-0.012); NRBC Pct Auto 0.0 /100WBC (0.0-0.2); Platelet Count 170 X10*3/uL (160-400); Red Blood Count 4.12 X10*6/uL (4.60-5.80); White Blood Count 7.5 X10*3/uL (4.8-10.8)
--- NOTE | 2024-09-11 13:17 | HO.PSYCHPN ---
Subjective Subjective Date of Service: 09/11/24 Reason For Visit: catatonia Subjective Notes: Conditional Voluntary Healthcare Proxy: Yes Interim History: The patient has been out of his room more, ambulating independently. He was somewhat social yesterday engaging with other patients on the unit. Continues with right hand tremor particularly when anxious. Generally he has been more alert not combative mood gradually improving Medication Compliance: Yes Attending Groups: Intermittent Mental Status Exam Mental Status Exam Patient Appearance: Appropriate Patient Orientation: Person, Place and Situation Level of Consciousness: Awake and Alert Patient Behavior: Appropriate Mood Description: Appropriate Affect Description: Depressed, Blunted and Apprehensive Patient Cognition Impaired: No Ability to Follow Directions: Good Speech Pattern: Monotone and Soft-Spoken Thought Process: Slowed Thinking Thought Content: negative for Suicidal Ideation or negative for Homicidal Ideation Depressive Symptoms: Increased Anxiety Judgement: Fair Judgement and Insight: Improving judgment and impulse control. Patient knows place year month. He is asking discharge questions he is denying any thoughts of self-harm auditory hallucinations Diagnostics Vital Signs (24Hr): Vital Signs - 24 hr 09/10/24 19:40 09/11/24 08:08 Temperature 97.9 F 97.8 F Pulse Rate 78 83 Respiratory Rate 18 20 Blood Pressure 113/57 L 108/58 L Pulse Oximetry 96 96 Oxygen Delivery Method Room Air Room Air BMI result Body Mass Index 28.0 Labs 09/11/24 12:32 09/10/24 07:44 Labs: Laboratory Results - last 48 hr 09/10/24 09/11/24 07:44 12:32 WBC 7.5 RBC 4.12 L Hgb 11.6 L Hct 37.4 L MCV 90.8 MCH 28.2 MCHC 31.0 RDW 15.0 Plt Count 170 MPV 11.2 Immature Gran % (Auto) 0.7 H Neut % (Auto) 66.8 Lymph % (Auto) 23.0 [place] % (Auto) 9.1 Eos % (Auto) 0.1 Baso % (Auto) 0.3 Lymph # (Auto) 1.7 [place] # (Auto) 0.7 Eos # (Auto) 0.0 Baso # (Auto) 0.0 Abs Immat Gran (auto) 0.05 H Absolute Neuts (auto) 5.1 5.0 Absolute Nucleated RBC 0.000 Nucleated RBC % (auto) 0.0 Sodium 144 Potassium 4.5 Chloride 109 H Carbon Dioxide 25 Anion Gap 15 BUN 25 H Creatinine 1.14 Estim Creat Clear Calc 73.9 Estimated GFR > 60 Random Glucose 111 Calcium 9.4 D Imaging Radiology Impressions: ITS Impressions Venous Duplex 09/09/24 14:33 IMPRESSION: Nonocclusive thrombus, left cephalic vein. Electronically signed by: Mayank Irwin MD 09/09/2024 03:31 PM EDT RP Medications Medications Current Medications Acetaminophen (Acetaminophen 325 Mg Tablet) 650 mg PO Q6H PRN PRN Reason: Headache/Pain, Scale 1-10 Last Admin: 09/06/24 02:01 Dose: 650 mg Al Hydroxide/Mg Hydroxide (Magnesium Hydrox/Alum Hydrox 30 Ml Oral.Susp) 30 ml PO Q6H PRN PRN Reason: Heartburn/Nausea Last Admin: 08/17/24 21:50 Dose: 30 ml Albuterol/Ipratropium (Albuterol/Iprat 2.5/0.5mg 3 Ml Ampul.Neb) 3 ml INHALE QID PRN PRN Reason: wheezing Apixaban (Apixaban 5 Mg Tablet) 10 mg PO BID [facility] Stop: 09/16/24 21:01 Last Admin: 09/11/24 08:10 Dose: 10 mg Apixaban (Apixaban 5 Mg Tablet) 5 mg PO BID [facility] Stop: 10/08/24 08:59 Aripiprazole (Aripiprazole 5 Mg Tablet) 5 mg PO DAILY@1730 [facility] Last Admin: 09/10/24 16:58 Dose: 5 mg Benzocaine (Throat Lozenge, Medicated Lozenge) 1 lozenge MUCOUS MEM Q2H PRN PRN Reason: Sore Throat Clozapine (Clozapine 100 Mg Tablet) 150 mg PO DAILY@2000 [facility] Last Admin: 09/10/24 19:43 Dose: 150 mg Divalproex Sodium (Divalproex Sodium Sprinkles 125 Mg Cap.) 500 mg PO BEDTIME [facility] Last Admin: 09/10/24 19:45 Dose: 500 mg Ferrous Sulfate (Ferrous Sulfate 324 Mg Tablet.) 324 mg PO DAILY [facility] Last Admin: 09/11/24 08:10 Dose: 324 mg Finasteride (Finasteride 5 Mg Tablet) 5 mg PO DAILY [facility] Last Admin: 09/11/24 08:11 Dose: 5 mg Ketamine HCl 500 mg/ Sodium (Chloride) 21.9 mls @ 21.9 mls/hr IV .Q1H [facility]; Protocol Stop: 09/12/24 08:29 Magnesium Hydroxide (Milk Of Magnesia 30 Ml Oral.Susp) 30 ml PO DAILY PRN PRN Reason: Constipation Mirtazapine (Mirtazapine 7.5 Mg Tablet) 7.5 mg PO BEDTIME [facility] Last Admin: 09/10/24 19:44 Dose: 7.5 mg Olanzapine (Olanzapine Odt 10 Mg Tab.Rapdis) 5 mg TRANSLINGU BID PRN PRN Reason: agitation Last Admin: 08/24/24 20:56 Dose: 5 mg Pramipexole Dihydrochloride (Pramipexole Di-Hcl 0.25 Mg Tablet) 0.5 mg PO TID [facility] Last Admin: 09/11/24 08:10 Dose: 0.5 mg Sertraline HCl (Sertraline Hcl 50 Mg Tablet) 50 mg PO DAILY [facility] Last Admin: 09/11/24 08:10 Dose: 50 mg Tamsulosin HCl (Tamsulosin Hcl 0.4 Mg Capsule) 0.8 mg PO BEDTIME [facility] Last Admin: 09/10/24 19:42 Dose: 0.8 mg Allergies Allergies Allergy/AdvReac Type Severity Reaction Status Date / Time No Known Allergies (NKA) Allergy Unknown NONE Verified 06/19/24 20:43 Assessment & Plan Assessment & Plan (1) Left cephalic vein thrombosis: Status: Acute Code(s): I82.612 - Acute embolism and thrombosis of superficial veins of left upper extremity Plan Nonocclusive thrombus left cephalic vein Discuss case with Aldo who recommended 4 weeks of Eliquis which is ordered Elevate extremity Midline to be removed-we will defer decision to reinsert midline for ketamine treatments to psychiatry team. 09/10/2024 Ketamine scheduled for 2 days from today midline to be placed Eliquis ordered case for cephalic vein thrombosis being managed by hospitalist service 09/11/2024 Patient showing gradual improvement ketamine scheduled for tomorrow reinsertion of midline more alert improved engagement no hallucinations delusional material or aggression noted today still flat needs cuing aware of discharge planning ketamine scheduled for the morning continue clozapine sertraline Abilify per catatonia protocol Patient educated on: diagnosis and medication risk/benefits Informed Consent: further education needed Reason for continued inpatient stay Substantial Risk for: inability to function and rapid decompensation Time Spent With Patient Time: Total time managing care of this patient today ____ minutes.
--- NOTE | 2024-09-11 15:43 | HO.MIDLINE_ITS ---
Midline Insertion MIDLINE INSERTION Diagnosis: In Patient Psych Indication: ketamine TX Pertinent Labs: reviewed Technique: Using sterile technique including cap and mask, glove and drape, the right arm was prepped and draped in the usual sterile fashion of full barrier technique with CHG. Using ultrasound guidance, right cephalic vein access was obtained . 4FR single lumen non PASV midline trimmed to 11cm was positioned. The procedure was performed in rm [id number]. Ultrasound was used to document vein patency and for needle entry. A formal ultrasound picture was recorded. Vascular Squeegee Operator has released the line for use and it is currently dressed with a StatLock, Tegaderm, and CHG disc. Verification has been performed for blood return and line patency. Arm Circumference: 30cm Equipment: BARD POWER MIDLINE catheter Catheter Type: 4FR x 20cm nonPASV Lot #: [id number]
[2024-09-11 20:00] VITALS: BP 108/51; PULSE 90; TEMP 36.8; O2SAT 96
[2024-09-11] MEDS: Divalproex Sodium Sprinkles 125 MG CAP.DR.SPR 500 MG PO (20:42)
--- NOTE | 2024-09-11 21:28 | HO.PSYCHPN ---
Subjective Subjective Date of Service: 09/11/24 Reason For Visit: catatonia Subjective Notes: Conditional Voluntary Healthcare Proxy: Yes Interim History: Pt more alert and engaged . Ambulating independantly Medication Compliance: Yes Mental Status Exam Mental Status Exam Patient Appearance: Appropriate Patient Orientation: Person, Place and Situation Level of Consciousness: Awake and Alert Patient Behavior: Appropriate Mood Description: Appropriate Affect Description: Depressed, Blunted and Apprehensive Patient Cognition Impaired: No Ability to Follow Directions: Good Speech Pattern: Monotone and Soft-Spoken Thought Process: Slowed Thinking Thought Content: negative for Suicidal Ideation or negative for Homicidal Ideation Depressive Symptoms: Increased Anxiety Judgement: Fair Judgement and Insight: Improving judgment and impulse control. Patient knows place year month. He is asking discharge questions he is denying any thoughts of self-harm auditory hallucinations Diagnostics Vital Signs (24Hr): Vital Signs - 24 hr 09/11/24 08:08 09/11/24 20:00 Temperature 97.8 F 98.2 F Pulse Rate 83 90 Respiratory Rate 20 Blood Pressure 108/58 L 108/51 L Pulse Oximetry 96 96 Oxygen Delivery Method Room Air Room Air BMI result Body Mass Index 28.0 Labs 09/11/24 12:32 09/10/24 07:44 Labs: Laboratory Results - last 48 hr 09/10/24 09/11/24 07:44 12:32 WBC 7.5 RBC 4.12 L Hgb 11.6 L Hct 37.4 L MCV 90.8 MCH 28.2 MCHC 31.0 RDW 15.0 Plt Count 170 MPV 11.2 Immature Gran % (Auto) 0.7 H Neut % (Auto) 66.8 Lymph % (Auto) 23.0 [place] % (Auto) 9.1 Eos % (Auto) 0.1 Baso % (Auto) 0.3 Lymph # (Auto) 1.7 [place] # (Auto) 0.7 Eos # (Auto) 0.0 Baso # (Auto) 0.0 Abs Immat Gran (auto) 0.05 H Absolute Neuts (auto) 5.1 5.0 Absolute Nucleated RBC 0.000 Nucleated RBC % (auto) 0.0 Sodium 144 Potassium 4.5 Chloride 109 H Carbon Dioxide 25 Anion Gap 15 BUN 25 H Creatinine 1.14 Estim Creat Clear Calc 73.9 Estimated GFR > 60 Random Glucose 111 Calcium 9.4 D Imaging Radiology Impressions: ITS Impressions Venous Duplex 09/09/24 14:33 IMPRESSION: Nonocclusive thrombus, left cephalic vein. Electronically signed by: Mayank Irwin MD 09/09/2024 03:31 PM EDT RP Medications Medications Current Medications Acetaminophen (Acetaminophen 325 Mg Tablet) 650 mg PO Q6H PRN PRN Reason: Headache/Pain, Scale 1-10 Last Admin: 09/06/24 02:01 Dose: 650 mg Al Hydroxide/Mg Hydroxide (Magnesium Hydrox/Alum Hydrox 30 Ml Oral.Susp) 30 ml PO Q6H PRN PRN Reason: Heartburn/Nausea Last Admin: 08/17/24 21:50 Dose: 30 ml Albuterol/Ipratropium (Albuterol/Iprat 2.5/0.5mg 3 Ml Ampul.Neb) 3 ml INHALE QID PRN PRN Reason: wheezing Apixaban (Apixaban 5 Mg Tablet) 10 mg PO BID [facility] Stop: 09/16/24 21:01 Last Admin: 09/11/24 20:42 Dose: 10 mg Apixaban (Apixaban 5 Mg Tablet) 5 mg PO BID [facility] Stop: 10/08/24 08:59 Aripiprazole (Aripiprazole 5 Mg Tablet) 5 mg PO DAILY@1730 [facility] Last Admin: 09/11/24 16:50 Dose: 5 mg Benzocaine (Throat Lozenge, Medicated Lozenge) 1 lozenge MUCOUS MEM Q2H PRN PRN Reason: Sore Throat Clozapine (Clozapine 100 Mg Tablet) 150 mg PO DAILY@2000 [facility] Last Admin: 09/11/24 20:43 Dose: 150 mg Divalproex Sodium (Divalproex Sodium Sprinkles 125 Mg Cap.) 500 mg PO BEDTIME [facility] Last Admin: 09/11/24 20:42 Dose: 500 mg Ferrous Sulfate (Ferrous Sulfate 324 Mg Tablet.) 324 mg PO DAILY [facility] Last Admin: 09/11/24 08:10 Dose: 324 mg Finasteride (Finasteride 5 Mg Tablet) 5 mg PO DAILY [facility] Last Admin: 09/11/24 08:11 Dose: 5 mg Ketamine HCl 500 mg/ Sodium (Chloride) 21.9 mls @ 21.9 mls/hr IV .Q1H [facility]; Protocol Stop: 09/12/24 08:29 Magnesium Hydroxide (Milk Of Magnesia 30 Ml Oral.Susp) 30 ml PO DAILY PRN PRN Reason: Constipation Mirtazapine (Mirtazapine 7.5 Mg Tablet) 7.5 mg PO BEDTIME [facility] Last Admin: 09/11/24 20:43 Dose: 7.5 mg Olanzapine (Olanzapine Odt 10 Mg Tab.Rapdis) 5 mg TRANSLINGU BID PRN PRN Reason: agitation Last Admin: 08/24/24 20:56 Dose: 5 mg Pramipexole Dihydrochloride (Pramipexole Di-Hcl 0.25 Mg Tablet) 0.5 mg PO TID [facility] Last Admin: 09/11/24 20:43 Dose: 0.5 mg Sertraline HCl (Sertraline Hcl 50 Mg Tablet) 50 mg PO DAILY [facility] Last Admin: 09/11/24 08:10 Dose: 50 mg Sodium Chloride (0.9 % Sodium Chloride Flush 10 Ml Syringe) [facility] Tamsulosin HCl (Tamsulosin Hcl 0.4 Mg Capsule) 0.8 mg PO BEDTIME [facility] Last Admin: 09/11/24 20:41 Dose: 0.8 mg Allergies Allergies Allergy/AdvReac Type Severity Reaction Status Date / Time No Known Allergies (NKA) Allergy Unknown NONE Verified 06/19/24 20:43 Assessment & Plan Assessment & Plan (1) Left cephalic vein thrombosis: Status: Acute Code(s): I82.612 - Acute embolism and thrombosis of superficial veins of left upper extremity Plan Nonocclusive thrombus left cephalic vein Discuss case with Aldo who recommended 4 weeks of Eliquis which is ordered Elevate extremity Midline to be removed-we will defer decision to reinsert midline for ketamine treatments to psychiatry team. 09/10/2024 Ketamine scheduled for 2 days from today midline to be placed Eliquis ordered case for cephalic vein thrombosis being managed by hospitalist service 09/11/2024 Patient showing gradual improvement ketamine scheduled for tomorrow reinsertion of midline more alert improved engagement no hallucinations delusional material or aggression noted today still flat needs cuing aware of discharge planning ketamine scheduled for the morning continue clozapine sertraline Abilify per catatonia protocol Reason for continued inpatient stay Substantial Risk for: inability to function, rapid decompensation and med/psych decompensation Time Spent With Patient Time: Total time managing care of this patient today ____ minutes.
[2024-09-12] VITALS (11 sets, daily range): BP systolic 115–136; BP diastolic 50–70; PULSE 69–84; RESP 16–18; TEMP 36.2–37.2; O2SAT 95–99; BMI 28.5
[2024-09-12] MEDS: 0.9 % Sodium Chloride Flush 10 ML SYRINGE IVFLUSH ×2 (00:34→16:08)
[2024-09-12] MEDS: Ketamine HCl 500 MG in 0.9 % Sodium Chloride 250 ML 21.9 MG IV (08:00)
[2024-09-12] MEDS: Ferrous Sulfate 324 MG TABLET.DR PO (10:38)
--- NOTE | 2024-09-12 11:10 | PC.NURSE ---
Patient back from Ketamine Tx at 10:10 AM. IV site in right arm, unremarkable. Upon returning from PACU vitals as follow: T 97.2, P 79, BP 130/58, O2sat 99% on RA. Benjamin is alert and oriented x4. Denies pain, denies dizziness, lightheadedness or nausea. Drank fluids in a milieu then isolative to his room. Will continue to monitor.
[2024-09-12] MEDS: Divalproex Sodium Sprinkles 125 MG CAP.DR.SPR 500 MG PO (19:38)
--- NOTE | 2024-09-12 22:25 | HO.PSYCHPN ---
Subjective Subjective Date of Service: 09/12/24 Reason For Visit: catatonia Subjective Notes: Conditional Voluntary Healthcare Proxy: Yes Interim History: Patient had ketamine treatment today without difficulty. Has a orozco range of emotion ambulatory Independently no recent fall <del>tolerated</del> <del>ketamine</del> <del>treatment</del> <del>that</del> <del>difficulty</del> Mental Status Exam Mental Status Exam Patient Appearance: Appropriate Patient Orientation: Person, Place and Situation Level of Consciousness: Awake and Alert Patient Behavior: Appropriate Mood Description: Appropriate Affect Description: Depressed, Blunted and Apprehensive Patient Cognition Impaired: No Ability to Follow Directions: Good Speech Pattern: Monotone and Soft-Spoken Thought Process: Slowed Thinking Thought Content: negative for Suicidal Ideation or negative for Homicidal Ideation Depressive Symptoms: Increased Anxiety Judgement: Fair Judgement and Insight: Improving judgment and impulse control. Patient knows place year month. He is asking discharge questions he is denying any thoughts of self-harm auditory hallucinations Diagnostics Vital Signs (24Hr): Vital Signs - 24 hr 09/12/24 08:00 09/12/24 08:15 09/12/24 08:30 Temperature 97.4 F Pulse Rate 82 84 69 Respiratory Rate 18 16 16 Blood Pressure 121/50 L 128/61 121/59 L Pulse Oximetry 95 96 97 Oxygen Delivery Method Room Air Room Air Room Air 09/12/24 08:45 09/12/24 09:00 09/12/24 09:15 Temperature Pulse Rate 73 77 73 Respiratory Rate 16 16 16 Blood Pressure 129/67 127/70 131/66 Pulse Oximetry 98 98 99 Oxygen Delivery Method Room Air Room Air Room Air 09/12/24 09:30 09/12/24 09:43 09/12/24 10:00 Temperature 98.9 F Pulse Rate 78 80 77 Respiratory Rate 16 16 16 Blood Pressure 136/70 119/60 115/65 Pulse Oximetry 97 97 97 Oxygen Delivery Method Room Air Room Air Room Air 09/12/24 10:15 09/12/24 19:34 Temperature 97.2 F 97.5 F Pulse Rate 79 76 Respiratory Rate 16 Blood Pressure 130/58 L 123/59 L Pulse Oximetry 99 96 Oxygen Delivery Method Room Air Room Air BMI result Body Mass Index 28.5 Labs 09/11/24 12:32 09/10/24 07:44 Labs: Laboratory Results - last 48 hr 09/11/24 12:32 WBC 7.5 RBC 4.12 L Hgb 11.6 L Hct 37.4 L MCV 90.8 MCH 28.2 MCHC 31.0 RDW 15.0 Plt Count 170 MPV 11.2 Immature Gran % (Auto) 0.7 H Neut % (Auto) 66.8 Lymph % (Auto) 23.0 [place] % (Auto) 9.1 Eos % (Auto) 0.1 Baso % (Auto) 0.3 Lymph # (Auto) 1.7 [place] # (Auto) 0.7 Eos # (Auto) 0.0 Baso # (Auto) 0.0 Abs Immat Gran (auto) 0.05 H Absolute Neuts (auto) 5.0 Absolute Nucleated RBC 0.000 Nucleated RBC % (auto) 0.0 Imaging Radiology Impressions: ITS Impressions Venous Duplex 09/09/24 14:33 IMPRESSION: Nonocclusive thrombus, left cephalic vein. Electronically signed by: Mayank Irwin MD 09/09/2024 03:31 PM EDT RP Medications Medications Current Medications Acetaminophen (Acetaminophen 325 Mg Tablet) 650 mg PO Q6H PRN PRN Reason: Headache/Pain, Scale 1-10 Last Admin: 09/06/24 02:01 Dose: 650 mg Al Hydroxide/Mg Hydroxide (Magnesium Hydrox/Alum Hydrox 30 Ml Oral.Susp) 30 ml PO Q6H PRN PRN Reason: Heartburn/Nausea Last Admin: 08/17/24 21:50 Dose: 30 ml Albuterol/Ipratropium (Albuterol/Iprat 2.5/0.5mg 3 Ml Ampul.Neb) 3 ml INHALE QID PRN PRN Reason: wheezing Apixaban (Apixaban 5 Mg Tablet) 10 mg PO BID [facility] Stop: 09/16/24 21:01 Last Admin: 09/12/24 19:38 Dose: 10 mg Apixaban (Apixaban 5 Mg Tablet) 5 mg PO BID [facility] Stop: 10/08/24 08:59 Aripiprazole (Aripiprazole 5 Mg Tablet) 5 mg PO DAILY@1730 [facility] Last Admin: 09/12/24 16:10 Dose: 5 mg Benzocaine (Throat Lozenge, Medicated Lozenge) 1 lozenge MUCOUS MEM Q2H PRN PRN Reason: Sore Throat Clozapine 100 mg/ Clozapine 50 (mg) 150 mg PO DAILY@1999 [facility] Divalproex Sodium (Divalproex Sodium Sprinkles 125 Mg Cap.Spr) 500 mg PO BEDTIME [facility] Last Admin: 09/12/24 19:38 Dose: 500 mg Ferrous Sulfate (Ferrous Sulfate 324 Mg Tablet.Dr) 324 mg PO DAILY [facility] Last Admin: 09/12/24 10:38 Dose: 324 mg Finasteride (Finasteride 5 Mg Tablet) 5 mg PO DAILY [facility] Last Admin: 09/12/24 10:37 Dose: 5 mg Magnesium Hydroxide (Milk Of Magnesia 30 Ml Oral.Susp) 30 ml PO DAILY PRN PRN Reason: Constipation Mirtazapine (Mirtazapine 7.5 Mg Tablet) 7.5 mg PO BEDTIME [facility] Last Admin: 09/12/24 19:36 Dose: 7.5 mg Olanzapine (Olanzapine Odt 10 Mg Tab.Rapdis) 5 mg TRANSLINGU BID PRN PRN Reason: agitation Last Admin: 08/24/24 20:56 Dose: 5 mg Pramipexole Dihydrochloride (Pramipexole Di-Hcl 0.25 Mg Tablet) 0.5 mg PO TID [facility] Last Admin: 09/12/24 19:37 Dose: 0.5 mg Sertraline HCl (Sertraline Hcl 50 Mg Tablet) 50 mg PO DAILY [facility] Last Admin: 09/12/24 10:39 Dose: 50 mg Sodium Chloride (0.9 % Sodium Chloride Flush 10 Ml Syringe) 10 ml IVFLUSH QSHIFT [facility] Last Admin: 09/12/24 16:08 Dose: 10 ml Tamsulosin HCl (Tamsulosin Hcl 0.4 Mg Capsule) 0.8 mg PO BEDTIME [facility] Last Admin: 09/12/24 19:36 Dose: 0.8 mg Allergies Allergies Allergy/AdvReac Type Severity Reaction Status Date / Time No Known Allergies (NKA) Allergy Unknown NONE Verified 06/19/24 20:43 Assessment & Plan Assessment & Plan (1) Left cephalic vein thrombosis: Status: Acute Code(s): I82.612 - Acute embolism and thrombosis of superficial veins of left upper extremity Plan Nonocclusive thrombus left cephalic vein Discuss case with Aldo who recommended 4 weeks of Eliquis which is ordered Elevate extremity Midline to be removed-we will defer decision to reinsert midline for ketamine treatments to psychiatry team. 09/10/2024 Ketamine scheduled for 2 days from today midline to be placed Eliquis ordered case for cephalic vein thrombosis being managed by hospitalist service 09/11/2024 Patient showing gradual improvement ketamine scheduled for tomorrow reinsertion of midline more alert improved engagement no hallucinations delusional material or aggression noted today still flat needs cuing aware of discharge planning ketamine scheduled for the morning continue clozapine sertraline Abilify per catat[place] protocol 09/12/2024 Continue clozapine sertraline Abilify improvement noted discharge planning meeting scheduled Reason for continued inpatient stay Substantial Risk for: inability to function, rapid decompensation and med/psych decompensation Time Spent With Patient Time: Total time managing care of this patient today ____ minutes.
[2024-09-13] MEDS: 0.9 % Sodium Chloride Flush 10 ML SYRINGE IVFLUSH ×3 (00:19→16:06)
[2024-09-13 08:00] VITALS: BP 111/60; PULSE 84; RESP 16; TEMP 36.3; O2SAT 99
--- NOTE | 2024-09-13 08:32 | PC.NURSE ---
The midline is in the right upper arm not in right hand, flushing without difficulty. IV site unremarkable.
[2024-09-13] MEDS: Ferrous Sulfate 324 MG TABLET.DR PO (09:09)
[2024-09-13 20:00] VITALS: BP 127/58; PULSE 73; RESP 16; TEMP 36.3; O2SAT 95
[2024-09-13] MEDS: Divalproex Sodium Sprinkles 125 MG CAP.DR.SPR 500 MG PO (20:53)
--- NOTE | 2024-09-13 22:43 | P.PNPSI_ITS ---
Subjective Subjective Date of Service: 09/13/24 Reason For Visit: catatonia Subjective Notes: Conditional Voluntary Interim History: Patient seen psychiatric follow-up case reviewed treatment team. Patient is her pleasant much orozco affect out of bed more engaged times in the community. Recent cognitive testing [facility] shows significant impairment patient continues on clozapine sertraline Abilify ketamine lowered for week ' Medication Compliance: Yes Mental Status Exam Mental Status Exam Patient Appearance: Appropriate Patient Orientation: Person, Place and Situation Level of Consciousness: Awake and Alert Patient Behavior: Appropriate Mood Description: Appropriate Affect Description: Depressed, Blunted and Apprehensive Patient Cognition Impaired: No Ability to Follow Directions: Good Speech Pattern: Monotone and Soft-Spoken Thought Process: Slowed Thinking Thought Content: negative for Suicidal Ideation or negative for Homicidal Ideation Depressive Symptoms: Increased Anxiety Judgement: Good Judgement and Insight: Improving judgment and impulse control. Patient knows place year month. Future oriented looking forward to leaving the hospital Diagnostics Vital Signs (24Hr): Vital Signs - 24 hr 09/13/24 08:00 09/13/24 20:00 Temperature 97.3 F 97.3 F Pulse Rate 84 73 Respiratory Rate 16 16 Blood Pressure 111/60 127/58 L Pulse Oximetry 99 95 Oxygen Delivery Method Room Air Room Air BMI result Body Mass Index 28.5 Labs 09/11/24 12:32 09/10/24 07:44 Imaging Radiology Impressions: ITS Impressions Venous Duplex 09/09/24 14:33 IMPRESSION: Nonocclusive thrombus, left cephalic vein. Electronically signed by: Mayank Irwin MD 09/09/2024 03:31 PM EDT Medications Medications Current Medications Acetaminophen (Acetaminophen 325 Mg Tablet) 650 mg PO Q6H PRN PRN Reason: Headache/Pain, Scale 1-10 Last Admin: 09/06/24 02:01 Dose: 650 mg Al Hydroxide/Mg Hydroxide (Magnesium Hydrox/Alum Hydrox 30 Ml Oral.Susp) 30 ml PO Q6H PRN PRN Reason: Heartburn/Nausea Last Admin: 08/17/24 21:50 Dose: 30 ml Albuterol/Ipratropium (Albuterol/Iprat 2.5/0.5mg 3 Ml Ampul.Neb) 3 ml INHALE QID PRN PRN Reason: wheezing Apixaban (Apixaban 5 Mg Tablet) 10 mg PO BID [facility] Stop: 09/16/24 21:01 Last Admin: 09/13/24 20:52 Dose: 10 mg Apixaban (Apixaban 5 Mg Tablet) 5 mg PO BID [facility] Stop: 10/08/24 08:59 Aripiprazole (Aripiprazole 5 Mg Tablet) 5 mg PO DAILY@1730 [facility] Last Admin: 09/13/24 17:00 Dose: 5 mg Benzocaine (Throat Lozenge, Medicated Lozenge) 1 lozenge MUCOUS MEM Q2H PRN PRN Reason: Sore Throat Clozapine 100 mg/ Clozapine 50 (mg) 150 mg PO DAILY@1999 [facility] Last Admin: 09/13/24 20:52 Dose: 150 mg Divalproex Sodium (Divalproex Sodium Sprinkles 125 Mg Cap.Dr.Spr) 500 mg PO BEDTIME [facility] Last Admin: 09/13/24 20:53 Dose: 500 mg Ferrous Sulfate (Ferrous Sulfate 324 Mg Tablet.Dr) 324 mg PO DAILY [facility] Last Admin: 09/13/24 09:09 Dose: 324 mg Finasteride (Finasteride 5 Mg Tablet) 5 mg PO DAILY [facility] Last Admin: 09/13/24 08:00 Dose: 5 mg Magnesium Hydroxide (Milk Of Magnesia 30 Ml Oral.Susp) 30 ml PO DAILY PRN PRN Reason: Constipation Mirtazapine (Mirtazapine 7.5 Mg Tablet) 7.5 mg PO BEDTIME [facility] Last Admin: 09/13/24 20:53 Dose: 7.5 mg Olanzapine (Olanzapine Odt 10 Mg Tab.Rapdis) 5 mg TRANSLINGU BID PRN PRN Reason: agitation Last Admin: 08/24/24 20:56 Dose: 5 mg Pramipexole Dihydrochloride (Pramipexole Di-Hcl 0.25 Mg Tablet) 0.5 mg PO TID [facility] Last Admin: 09/13/24 20:53 Dose: 0.5 mg Sertraline HCl (Sertraline Hcl 50 Mg Tablet) 50 mg PO DAILY [facility] Last Admin: 09/13/24 08:01 Dose: 50 mg Sodium Chloride (0.9 % Sodium Chloride Flush 10 Ml Syringe) 10 ml IVFLUSH QSHIFT [facility] Last Admin: 09/13/24 16:06 Dose: 10 ml Tamsulosin HCl (Tamsulosin Hcl 0.4 Mg Capsule) 0.8 mg PO BEDTIME [facility] Last Admin: 09/13/24 20:54 Dose: 0.8 mg Allergies Allergies Allergy/AdvReac Type Severity Reaction Status Date / Time No Known Allergies (NKA) Allergy Unknown NONE Verified 06/19/24 20:43 Assessment & Plan Assessment & Plan (1) Left cephalic vein thrombosis: Status: Acute Code(s): I82.612 - Acute embolism and thrombosis of superficial veins of left upper extremity Plan Nonocclusive thrombus left cephalic vein Discuss case with Aldo who recommended 4 weeks of Eliquis which is ordered Elevate extremity Midline to be removed-we will defer decision to reinsert midline for ketamine treatments to psychiatry team. 09/10/2024 Ketamine scheduled for 2 days from today midline to be placed Eliquis ordered case for cephalic vein thrombosis being managed by hospitalist service 09/11/2024 Patient showing gradual improvement ketamine scheduled for tomorrow reinsertion of midline more alert improved engagement no hallucinations delusional material or aggression noted today still flat needs cuing aware of discharge planning ketamine scheduled for the morning continue clozapine sertraline Abilify per catat[place] protocol 09/12/2024 Continue clozapine sertraline Abilify improvement noted discharge planning meeting scheduled 08/2024 Continue plan of care no change indicated this time discharge planning meeting shortly has responded to weekly ketamine Patient educated on: medication risk/benefits and therapeutic strategies Reason for continued inpatient stay Substantial Risk for: inability to function, rapid decompensation and med/psych decompensation Time Spent With Patient Time: Total time managing care of this patient today ____ minutes.
[2024-09-14] MEDS: 0.9 % Sodium Chloride Flush 10 ML SYRINGE IVFLUSH ×3 (01:24→16:58)
[2024-09-14 08:00] VITALS: BP 116/55; PULSE 88; RESP 19; TEMP 36.2; O2SAT 98
[2024-09-14] MEDS: Ferrous Sulfate 324 MG TABLET.DR PO (09:18)
[2024-09-14 09:20] LABS: Glucose, Whole Blood 145 mg/dL (60-115)
--- NOTE | 2024-09-14 11:07 | PC.NURSE ---
Addendum entered by Kassi Márquez RN 09/14/24 11:08: Pt denies pain at site. No swelling or erythema visualized. Positive blood return, patent. Original Note: Pt has midline in Right upper arm. In MAR site listed as Left upper arm, which is incorrect.
--- NOTE | 2024-09-14 12:07 | P.PNPSI_ITS ---
Subjective Subjective Date of Service: 09/14/24 Reason For Visit: catatonia Subjective Notes: Conditional Voluntary Interim History: Patient was seen and discussed in rounds today. Records and plans were reviewed. He has been stable and is doing much better with more varied affect. He is engageable and interacts. Eating and sleeping adequately. Medication compliant. No complaints or side effects. No behavioral issues. No changes were made today Review of Systems Review of Systems Yes all other systems are reviewed and are negative Mental Status Exam Mental Status Exam Patient Appearance: Appropriate Patient Orientation: Person, Place and Situation Level of Consciousness: Awake and Alert Patient Behavior: Appropriate Mood Description: Appropriate Affect Description: Depressed, Blunted and Apprehensive Patient Cognition Impaired: No Ability to Follow Directions: Good Speech Pattern: Monotone and Soft-Spoken Thought Process: Slowed Thinking Thought Content: negative for Suicidal Ideation or negative for Homicidal Ideation Depressive Symptoms: Increased Anxiety Judgement: Good Judgement and Insight: Improving judgment and impulse control. Patient knows place year month. Future oriented looking forward to leaving the hospital Diagnostics Vital Signs (24Hr): Vital Signs - 24 hr 09/13/24 20:00 09/14/24 08:00 Temperature 97.3 F 97.2 F Pulse Rate 73 88 Respiratory Rate 16 19 Blood Pressure 127/58 L 116/55 L Pulse Oximetry 95 98 Oxygen Delivery Method Room Air Room Air BMI result Body Mass Index 28.5 Labs 09/11/24 12:32 09/10/24 07:44 Labs: Laboratory Results - last 48 hr 09/14/24 09:09 POC Glucose 145 H Imaging Radiology Impressions: ITS Impressions Venous Duplex 09/09/24 14:33 IMPRESSION: Nonocclusive thrombus, left cephalic vein. Electronically signed by: Mayank Irwin MD 09/09/2024 03:31 PM EDT Medications Medications Current Medications Acetaminophen (Acetaminophen 325 Mg Tablet) 650 mg PO Q6H PRN PRN Reason: Headache/Pain, Scale 1-10 Last Admin: 09/06/24 02:01 Dose: 650 mg Al Hydroxide/Mg Hydroxide (Magnesium Hydrox/Alum Hydrox 30 Ml Oral.Susp) 30 ml PO Q6H PRN PRN Reason: Heartburn/Nausea Last Admin: 08/17/24 21:50 Dose: 30 ml Albuterol/Ipratropium (Albuterol/Iprat 2.5/0.5mg 3 Ml Ampul.Neb) 3 ml INHALE QID PRN PRN Reason: wheezing Apixaban (Apixaban 5 Mg Tablet) 10 mg PO BID [facility] Stop: 09/16/24 21:01 Last Admin: 09/14/24 09:18 Dose: 10 mg Apixaban (Apixaban 5 Mg Tablet) 5 mg PO BID [facility] Stop: 10/08/24 08:59 Aripiprazole (Aripiprazole 5 Mg Tablet) 5 mg PO DAILY@1730 [facility] Last Admin: 09/13/24 17:00 Dose: 5 mg Benzocaine (Throat Lozenge, Medicated Lozenge) 1 lozenge MUCOUS MEM Q2H PRN PRN Reason: Sore Throat Clozapine 100 mg/ Clozapine 50 (mg) 150 mg PO DAILY@1999 [facility] Last Admin: 09/13/24 20:52 Dose: 150 mg Divalproex Sodium (Divalproex Sodium Sprinkles 125 Mg Cap.Dr.Spr) 500 mg PO BEDTIME [facility] Last Admin: 09/13/24 20:53 Dose: 500 mg Ferrous Sulfate (Ferrous Sulfate 324 Mg Tablet.Dr) 324 mg PO DAILY [facility] Last Admin: 09/14/24 09:18 Dose: 324 mg Finasteride (Finasteride 5 Mg Tablet) 5 mg PO DAILY [facility] Last Admin: 09/14/24 09:18 Dose: 5 mg Magnesium Hydroxide (Milk Of Magnesia 30 Ml Oral.Susp) 30 ml PO DAILY PRN PRN Reason: Constipation Mirtazapine (Mirtazapine 7.5 Mg Tablet) 7.5 mg PO BEDTIME [facility] Last Admin: 09/13/24 20:53 Dose: 7.5 mg Olanzapine (Olanzapine Odt 10 Mg Tab.Rapdis) 5 mg TRANSLINGU BID PRN PRN Reason: agitation Last Admin: 08/24/24 20:56 Dose: 5 mg Pramipexole Dihydrochloride (Pramipexole Di-Hcl 0.25 Mg Tablet) 0.5 mg PO TID [facility] Last Admin: 09/14/24 09:17 Dose: 0.5 mg Sertraline HCl (Sertraline Hcl 50 Mg Tablet) 50 mg PO DAILY [facility] Last Admin: 09/14/24 09:17 Dose: 50 mg Sodium Chloride (0.9 % Sodium Chloride Flush 10 Ml Syringe) 10 ml IVFLUSH QSHIFT [facility] Last Admin: 09/14/24 09:11 Dose: 10 ml Tamsulosin HCl (Tamsulosin Hcl 0.4 Mg Capsule) 0.8 mg PO BEDTIME [facility] Last Admin: 09/13/24 20:54 Dose: 0.8 mg Allergies Allergies Allergy/AdvReac Type Severity Reaction Status Date / Time No Known Allergies (NKA) Allergy Unknown NONE Verified 06/19/24 20:43 Assessment & Plan Assessment & Plan (1) Left cephalic vein thrombosis: Status: Acute Code(s): I82.612 - Acute embolism and thrombosis of superficial veins of left upper extremity Plan Nonocclusive thrombus left cephalic vein Discuss case with Aldo who recommended 4 weeks of Eliquis which is ordered Elevate extremity Midline to be removed-we will defer decision to reinsert midline for ketamine treatments to psychiatry team. 09/10/2024 Ketamine scheduled for 2 days from today midline to be placed Eliquis ordered case for cephalic vein thrombosis being managed by hospitalist service 09/11/2024 Patient showing gradual improvement ketamine scheduled for tomorrow reinsertion of midline more alert improved engagement no hallucinations delusional material or aggression noted today still flat needs cuing aware of discharge planning ketamine scheduled for the morning continue clozapine sertraline Abilify per [place] protocol 09/12/2024 Continue clozapine sertraline Abilify improvement noted discharge planning meeting scheduled 08/2024 Continue plan of care no change indicated this time discharge planning meeting shortly has responded to weekly ketamine 09/14: Continue current regimen and plans Reason for continued inpatient stay Substantial Risk for: inability to function Time Spent With Patient Time: Total time managing care of this patient today ____ minutes.
[2024-09-14 20:00] VITALS: BP 128/56; PULSE 78; RESP 16; TEMP 36.3; O2SAT 95
[2024-09-14] MEDS: Divalproex Sodium Sprinkles 125 MG CAP.DR.SPR 500 MG PO (20:54)
[2024-09-15] MEDS: 0.9 % Sodium Chloride Flush 10 ML SYRINGE IVFLUSH ×3 (02:42→17:09)
[2024-09-15 08:00] VITALS: BP 116/55; PULSE 74; RESP 16; TEMP 36.4; O2SAT 98
[2024-09-15] MEDS: Ferrous Sulfate 324 MG TABLET.DR PO (09:08)
--- NOTE | 2024-09-15 11:03 | HO.PSYCHPN ---
Subjective Subjective Date of Service: 09/15/24 Reason For Visit: catatonia Subjective Notes: Conditional Voluntary Interim History: Patient was seen and discussed in rounds today. Records and plans were reviewed. He continues to be doing fairly well and has been stable with much improved affect. Still having some anxiety. There is some confusion about his medical records and his CBC order but until that is corrected I ordered a CBC for today with regards to his Clozaril. No SI. No changes were made today Review of Systems Review of Systems Yes all other systems are reviewed and are negative Mental Status Exam Mental Status Exam Patient Appearance: Appropriate Patient Orientation: Person, Place and Situation Level of Consciousness: Awake and Alert Patient Behavior: Appropriate Mood Description: Appropriate Affect Description: Depressed, Blunted and Apprehensive Patient Cognition Impaired: No Ability to Follow Directions: Good Speech Pattern: Monotone and Soft-Spoken Thought Process: Slowed Thinking Thought Content: negative for Suicidal Ideation or negative for Homicidal Ideation Depressive Symptoms: Increased Anxiety Judgement: Good Judgement and Insight: Improving judgment and impulse control. Patient knows place year month. Future oriented looking forward to leaving the hospital Diagnostics Vital Signs (24Hr): Vital Signs - 24 hr 09/14/24 20:00 09/15/24 08:00 Temperature 97.4 F 97.5 F Pulse Rate 78 74 Respiratory Rate 16 16 Blood Pressure 128/56 L 116/55 L Pulse Oximetry 95 98 Oxygen Delivery Method Room Air Room Air BMI result Body Mass Index 28.5 Labs 09/11/24 12:32 09/10/24 07:44 Labs: Laboratory Results - last 48 hr 09/14/24 09:09 POC Glucose 145 H Imaging Radiology Impressions: ITS Impressions Venous Duplex 09/09/24 14:33 IMPRESSION: Nonocclusive thrombus, left cephalic vein. Electronically signed by: Mayank Irwin MD 09/09/2024 03:31 PM EDT Medications Medications Current Medications Acetaminophen (Acetaminophen 325 Mg Tablet) 650 mg PO Q6H PRN PRN Reason: Headache/Pain, Scale 1-10 Last Admin: 09/06/24 02:01 Dose: 650 mg Al Hydroxide/Mg Hydroxide (Magnesium Hydrox/Alum Hydrox 30 Ml Oral.Susp) 30 ml PO Q6H PRN PRN Reason: Heartburn/Nausea Last Admin: 08/17/24 21:50 Dose: 30 ml Albuterol/Ipratropium (Albuterol/Iprat 2.5/0.5mg 3 Ml Ampul.Neb) 3 ml INHALE QID PRN PRN Reason: wheezing Apixaban (Apixaban 5 Mg Tablet) 10 mg PO BID [facility] Stop: 09/16/24 21:01 Last Admin: 09/15/24 09:07 Dose: 10 mg Apixaban (Apixaban 5 Mg Tablet) 5 mg PO BID [facility] Stop: 10/08/24 08:59 Aripiprazole (Aripiprazole 5 Mg Tablet) 5 mg PO DAILY@1730 [facility] Last Admin: 09/14/24 16:58 Dose: 5 mg Benzocaine (Throat Lozenge, Medicated Lozenge) 1 lozenge MUCOUS MEM Q2H PRN PRN Reason: Sore Throat Clozapine 100 mg/ Clozapine 50 (mg) 150 mg PO DAILY@1999 [facility] Last Admin: 09/14/24 21:07 Dose: 150 mg Divalproex Sodium (Divalproex Sodium Sprinkles 125 Mg Cap..Spr) 500 mg PO BEDTIME [facility] Last Admin: 09/14/24 20:54 Dose: 500 mg Ferrous Sulfate (Ferrous Sulfate 324 Mg Tablet.Dr) 324 mg PO DAILY [facility] Last Admin: 09/15/24 09:08 Dose: 324 mg Finasteride (Finasteride 5 Mg Tablet) 5 mg PO DAILY [facility] Last Admin: 09/15/24 09:09 Dose: 5 mg Magnesium Hydroxide (Milk Of Magnesia 30 Ml Oral.Susp) 30 ml PO DAILY PRN PRN Reason: Constipation Mirtazapine (Mirtazapine 7.5 Mg Tablet) 7.5 mg PO BEDTIME [facility] Last Admin: 09/14/24 20:53 Dose: 7.5 mg Olanzapine (Olanzapine Odt 10 Mg Tab.Rapdis) 5 mg TRANSLINGU BID PRN PRN Reason: agitation Last Admin: 08/24/24 20:56 Dose: 5 mg Pramipexole Dihydrochloride (Pramipexole Di-Hcl 0.25 Mg Tablet) 0.5 mg PO TID [facility] Last Admin: 09/15/24 09:07 Dose: 0.5 mg Sertraline HCl (Sertraline Hcl 50 Mg Tablet) 50 mg PO DAILY [facility] Last Admin: 09/15/24 09:08 Dose: 50 mg Sodium Chloride (0.9 % Sodium Chloride Flush 10 Ml Syringe) 10 ml IVFLUSH QSHIFT [facility] Last Admin: 09/15/24 09:05 Dose: 10 ml Tamsulosin HCl (Tamsulosin Hcl 0.4 Mg Capsule) 0.8 mg PO BEDTIME [facility] Last Admin: 09/14/24 20:54 Dose: 0.8 mg Allergies Allergies Allergy/AdvReac Type Severity Reaction Status Date / Time No Known Allergies (NKA) Allergy Unknown NONE Verified 06/19/24 20:43 Assessment & Plan Assessment & Plan (1) Left cephalic vein thrombosis: Status: Acute Code(s): I82.612 - Acute embolism and thrombosis of superficial veins of left upper extremity Plan Nonocclusive thrombus left cephalic vein Discuss case with Aldo who recommended 4 weeks of Eliquis which is ordered Elevate extremity Midline to be removed-we will defer decision to reinsert midline for ketamine treatments to psychiatry team. 09/10/2024 Ketamine scheduled for 2 days from today midline to be placed Eliquis ordered case for cephalic vein thrombosis being managed by hospitalist service 09/11/2024 Patient showing gradual improvement ketamine scheduled for tomorrow reinsertion of midline more alert improved engagement no hallucinations delusional material or aggression noted today still flat needs cuing aware of discharge planning ketamine scheduled for the morning continue clozapine sertraline Abilify per catatonia protocol 09/12/2024 Continue clozapine sertraline Abilify improvement noted discharge planning meeting scheduled 08/2024 Continue plan of care no change indicated this time discharge planning meeting shortly has responded to weekly ketamine 09/14: Continue current regimen and plans 09/15: Continue current regimen and plans Reason for continued inpatient stay Substantial Risk for: med/psych decompensation Time Spent With Patient Time: Total time managing care of this patient today ____ minutes.
[2024-09-15 11:22] LABS: MANUAL DIFF FLAG NO
[2024-09-15 11:24] LABS: Hematocrit 34.3 % (42.0-52.0); Hemoglobin 11.2 g/dl (14.0-18.0); Imm Gran Abs Auto 0.06 X10*3/uL (0.00-0.03); Imm Gran Pct Auto 1.1 % (0.0-0.4); Lymphocytes Absolute Auto 1.3 X10*3/uL (1.2-4.9); Mean Corpuscular HGB Conc 32.7 g/dl (31.0-36.0); Mean Corpuscular Hemoglobin 28.7 pg (27.0-33.0); Mean Corpuscular Volume 87.9 fL (80.0-98.0); NRBC Abs Auto 0.000 X10*3/uL (0.0-0.012); NRBC Pct Auto 0.0 /100WBC (0.0-0.2); Platelet Count 157 X10*3/uL (160-400); Red Blood Count 3.90 X10*6/uL (4.60-5.80); White Blood Count 5.7 X10*3/uL (4.8-10.8)
[2024-09-15 20:00] VITALS: BP 132/68; PULSE 93; RESP 18; TEMP 37.1; O2SAT 97
[2024-09-15] MEDS: Divalproex Sodium Sprinkles 125 MG CAP.DR.SPR 500 MG PO (20:43)
[2024-09-16] MEDS: 0.9 % Sodium Chloride Flush 10 ML SYRINGE IVFLUSH ×3 (00:21→17:17)
--- NOTE | 2024-09-16 09:00 | P.PNPSI_ITS ---
Subjective Subjective Date of Service: 09/16/24 Reason For Visit: catatonia Subjective Notes: Conditional Voluntary Healthcare Proxy: Yes Interim History: Patient seen psychiatric follow-up case reviewed with treatment team case reviewed with [facility] a ACCS team and the patient's father. The patient has had recovery but limited cognitively slowed mentation. Patient's social ambulating independently Mental Status Exam Mental Status Exam Patient Appearance: Appropriate Patient Orientation: Person, Place and Situation Level of Consciousness: Awake and Alert Patient Behavior: Appropriate Mood Description: Appropriate Affect Description: Depressed, Blunted and Apprehensive Patient Cognition Impaired: No Ability to Follow Directions: Good Speech Pattern: Monotone and Soft-Spoken Delusions: Not Present Thought Process: Slowed Thinking Thought Content: negative for Suicidal Ideation or negative for Homicidal Ideation Depressive Symptoms: Increased Anxiety Judgement: Good Judgement and Insight: Improving judgment and impulse control. Patient knows place year month. Future oriented looking forward to leaving the hospital Diagnostics Vital Signs (24Hr): Vital Signs - 24 hr 09/15/24 20:00 Temperature 98.7 F Pulse Rate 93 Respiratory Rate 18 Blood Pressure 132/68 Pulse Oximetry 97 Oxygen Delivery Method Room Air BMI result Body Mass Index 28.5 Labs 09/15/24 11:19 09/10/24 07:44 Labs: Laboratory Results - last 48 hr 09/14/24 09/15/24 09:09 11:19 WBC 5.7 RBC 3.90 L Hgb 11.2 L Hct 34.3 L MCV 87.9 MCH 28.7 MCHC 32.7 RDW 14.9 Plt Count 157 L MPV 11.2 Immature Gran % (Auto) 1.1 H Neut % (Auto) 66.9 Lymph % (Auto) 23.4 [place] % (Auto) 8.4 Eos % (Auto) 0.0 Baso % (Auto) 0.2 Lymph # (Auto) 1.3 [place] # (Auto) 0.5 Eos # (Auto) 0.0 Baso # (Auto) 0.0 Abs Immat Gran (auto) 0.06 H Absolute Neuts (auto) 3.8 Absolute Nucleated RBC 0.000 Nucleated RBC % (auto) 0.0 POC Glucose 145 H Imaging Radiology Impressions: ITS Impressions Venous Duplex 09/09/24 14:33 IMPRESSION: Nonocclusive thrombus, left cephalic vein. Electronically signed by: Mayank Irwin MD 09/09/2024 03:31 PM EDT Medications Medications Current Medications Acetaminophen (Acetaminophen 325 Mg Tablet) 650 mg PO Q6H PRN PRN Reason: Headache/Pain, Scale 1-10 Last Admin: 09/06/24 02:01 Dose: 650 mg Al Hydroxide/Mg Hydroxide (Magnesium Hydrox/Alum Hydrox 30 Ml Oral.Susp) 30 ml PO Q6H PRN PRN Reason: Heartburn/Nausea Last Admin: 08/17/24 21:50 Dose: 30 ml Albuterol/Ipratropium (Albuterol/Iprat 2.5/0.5mg 3 Ml Ampul.Neb) 3 ml INHALE QID PRN PRN Reason: wheezing Apixaban (Apixaban 5 Mg Tablet) 10 mg PO BID [facility] Stop: 09/16/24 21:01 Last Admin: 09/15/24 20:43 Dose: 10 mg Apixaban (Apixaban 5 Mg Tablet) 5 mg PO BID [facility] Stop: 10/08/24 08:59 Aripiprazole (Aripiprazole 5 Mg Tablet) 5 mg PO DAILY@1730 [facility] Last Admin: 09/15/24 17:09 Dose: 5 mg Benzocaine (Throat Lozenge, Medicated Lozenge) 1 lozenge MUCOUS MEM Q2H PRN PRN Reason: Sore Throat Clozapine 100 mg/ Clozapine 50 (mg) 150 mg PO DAILY@2000 [facility] Last Admin: 09/15/24 20:43 Dose: 150 mg Divalproex Sodium (Divalproex Sodium Sprinkles 125 Mg Cap.Spr) 500 mg PO BEDTIME [facility] Last Admin: 09/15/24 20:43 Dose: 500 mg Ferrous Sulfate (Ferrous Sulfate 324 Mg Tablet.Dr) 324 mg PO DAILY [facility] Last Admin: 09/15/24 09:08 Dose: 324 mg Finasteride (Finasteride 5 Mg Tablet) 5 mg PO DAILY [facility] Last Admin: 09/15/24 09:09 Dose: 5 mg Magnesium Hydroxide (Milk Of Magnesia 30 Ml Oral.Susp) 30 ml PO DAILY PRN PRN Reason: Constipation Mirtazapine (Mirtazapine 7.5 Mg Tablet) 7.5 mg PO BEDTIME [facility] Last Admin: 09/15/24 20:43 Dose: 7.5 mg Olanzapine (Olanzapine Odt 10 Mg Tab.Rapdis) 5 mg TRANSLINGU BID PRN PRN Reason: agitation Last Admin: 08/24/24 20:56 Dose: 5 mg Pramipexole Dihydrochloride (Pramipexole Di-Hcl 0.25 Mg Tablet) 0.5 mg PO TID [facility] Last Admin: 09/15/24 20:43 Dose: 0.5 mg Sertraline HCl (Sertraline Hcl 50 Mg Tablet) 50 mg PO DAILY [facility] Last Admin: 09/15/24 09:08 Dose: 50 mg Sodium Chloride (0.9 % Sodium Chloride Flush 10 Ml Syringe) 10 ml IVFLUSH QSHIFT [facility] Last Admin: 09/16/24 00:21 Dose: 10 ml Tamsulosin HCl (Tamsulosin Hcl 0.4 Mg Capsule) 0.8 mg PO BEDTIME [facility] Last Admin: 09/15/24 20:43 Dose: 0.8 mg Allergies Allergies Allergy/AdvReac Type Severity Reaction Status Date / Time No Known Allergies (NKA) Allergy Unknown NONE Verified 06/19/24 20:43 Assessment & Plan Assessment & Plan (1) Left cephalic vein thrombosis: Status: Acute Code(s): I82.612 - Acute embolism and thrombosis of superficial veins of left upper extremity Plan Nonocclusive thrombus left cephalic vein Discuss case with Aldo who recommended 4 weeks of Eliquis which is ordered Elevate extremity Midline to be removed-we will defer decision to reinsert midline for ketamine treatments to psychiatry team. 09/10/2024 Ketamine scheduled for 2 days from today midline to be placed Eliquis ordered case for cephalic vein thrombosis being managed by hospitalist service 09/11/2024 Patient showing gradual improvement ketamine scheduled for tomorrow reinsertion of midline more alert improved engagement no hallucinations delusional material or aggression noted today still flat needs cuing aware of discharge planning ketamine scheduled for the morning continue clozapine sertraline Abilify per catatonia protocol 09/12/2024 Continue clozapine sertraline Abilify improvement noted discharge planning meeting scheduled 08/2024 Continue plan of care no change indicated [id number] time discharge planning meeting shortly has responded to weekly ketamine 09/14: Continue current regimen and plans 09/15: Continue current regimen and plans 09/16/24 Continue clozapine scheduled another ketamine treatment for this week discussed discharge planning and transition Reason for continued inpatient stay Substantial Risk for: inability to function and rapid decompensation Time Spent With Patient Time: Total time managing care of this patient today _30___ minutes.
[2024-09-16 09:30] VITALS: BP 122/62; PULSE 80; RESP 15; TEMP 37; O2SAT 99
[2024-09-16] MEDS: Ferrous Sulfate 324 MG TABLET.DR PO (09:32)
--- NOTE | 2024-09-16 14:57 | PC.NURSE ---
ACLS and MOCA: Pt scored a 4.2 on the ACLS indicating MODERATE cognitive impairment and the need for 38% minimum cognitive assistance for problem solving, safety, consistent ADLs and assistance for IADLs. Pt scored a 15/30 on the MOCA indicating MODERATE cognitive impairment with deficits in all domains but particularly with executive functioning.
[2024-09-16 19:51] VITALS: BP 142/64; PULSE 80; RESP 18; TEMP 37.1; O2SAT 97
[2024-09-16] MEDS: Divalproex Sodium Sprinkles 125 MG CAP.DR.SPR 500 MG PO (19:53)
[2024-09-17] MEDS: 0.9 % Sodium Chloride Flush 10 ML SYRINGE IVFLUSH ×4 (00:56→23:24)
[2024-09-17 08:00] VITALS: BP 118/58; PULSE 88; TEMP 36.4; O2SAT 97
[2024-09-17] MEDS: Ferrous Sulfate 324 MG TABLET.DR PO (08:35)
[2024-09-17 10:51] LABS: MANUAL DIFF FLAG NO
[2024-09-17 10:53] LABS: Hematocrit 36.0 % (42.0-52.0); Hemoglobin 11.8 g/dl (14.0-18.0); Imm Gran Abs Auto 0.06 X10*3/uL (0.00-0.03); Imm Gran Pct Auto 0.9 % (0.0-0.4); Lymphocytes Absolute Auto 1.7 X10*3/uL (1.2-4.9); Mean Corpuscular HGB Conc 32.8 g/dl (31.0-36.0); Mean Corpuscular Hemoglobin 29.2 pg (27.0-33.0); Mean Corpuscular Volume 89.1 fL (80.0-98.0); NRBC Abs Auto 0.000 X10*3/uL (0.0-0.012); NRBC Pct Auto 0.0 /100WBC (0.0-0.2); Platelet Count 160 X10*3/uL (160-400); Red Blood Count 4.04 X10*6/uL (4.60-5.80); White Blood Count 6.6 X10*3/uL (4.8-10.8)
[2024-09-17] MEDS: Milk of Magnesia 30 ML ORAL.SUSP PO (15:15)
[2024-09-17 20:00] VITALS: BP 129/65; PULSE 85; RESP 18; TEMP 36.7; O2SAT 97
[2024-09-17] MEDS: Divalproex Sodium Sprinkles 125 MG CAP.DR.SPR 500 MG PO (20:53)
--- NOTE | 2024-09-17 23:16 | HO.PSYCHPN ---
Subjective Subjective Date of Service: 09/17/24 Reason For Visit: catatonia Subjective Notes: Conditional Voluntary Healthcare Proxy: Yes Interim History: Patient somewhat blunted generally tends to isolate has been interacting more attending some groups. Cognitively the patient has shown a decrease in functioning executive functioning reasoning. Meeting was held this week with [facility] patient's healthcare proxy to discuss further treatment and eventual transition. Not overly aggressive but does need cuing Medication Compliance: Yes Mental Status Exam Mental Status Exam Patient Appearance: Appropriate Patient Orientation: Person, Place and Situation Level of Consciousness: Awake and Alert Patient Behavior: Appropriate Mood Description: Appropriate and Blunted Affect Description: Blunted Patient Cognition Impaired: No Ability to Follow Directions: Good Speech Pattern: Monotone and Soft-Spoken Delusions: Not Present Thought Process: Slowed Thinking Thought Content: negative for Suicidal Ideation or negative for Homicidal Ideation Depressive Symptoms: Increased Anxiety Judgement: Good Judgement and Insight: Improving judgment and impulse control. Patient knows place year month. Future oriented some poverty of content Diagnostics Vital Signs (24Hr): Vital Signs - 24 hr 09/17/24 08:00 09/17/24 20:00 Temperature 97.5 F 98.1 F Pulse Rate 88 85 Respiratory Rate 18 Blood Pressure 118/58 L 129/65 Pulse Oximetry 97 97 Oxygen Delivery Method Room Air Room Air BMI result Body Mass Index 28.5 Labs 09/17/24 10:47 09/10/24 07:44 Labs: Laboratory Results - last 48 hr 09/17/24 09/17/24 10:47 10:47 WBC 6.6 RBC 4.04 L Hgb 11.8 L Hct 36.0 L MCV 89.1 MCH 29.2 MCHC 32.8 RDW 15.2 Plt Count 160 MPV 10.9 Immature Gran % (Auto) 0.9 H Neut % (Auto) 63.8 Lymph % (Auto) 25.8 [place] % (Auto) 9.3 Eos % (Auto) 0.0 Baso % (Auto) 0.2 Lymph # (Auto) 1.7 [place] # (Auto) 0.6 Eos # (Auto) 0.0 Baso # (Auto) 0.0 Abs Immat Gran (auto) 0.06 H Absolute Neuts (auto) 4.2 Cancelled Absolute Nucleated RBC 0.000 Nucleated RBC % (auto) 0.0 Imaging Radiology Impressions: ITS Impressions Venous Duplex 09/09/24 14:33 IMPRESSION: Nonocclusive thrombus, left cephalic vein. Electronically signed by: Mayank Irwin MD 09/09/2024 03:31 PM EDT Medications Medications Current Medications Acetaminophen (Acetaminophen 325 Mg Tablet) 650 mg PO Q6H PRN PRN Reason: Headache/Pain, Scale 1-10 Last Admin: 09/06/24 02:01 Dose: 650 mg Al Hydroxide/Mg Hydroxide (Magnesium Hydrox/Alum Hydrox 30 Ml Oral.Susp) 30 ml PO Q6H PRN PRN Reason: Heartburn/Nausea Last Admin: 08/17/24 21:50 Dose: 30 ml Albuterol/Ipratropium (Albuterol/Iprat 2.5/0.5mg 3 Ml Ampul.Neb) 3 ml INHALE QID PRN PRN Reason: wheezing Apixaban (Apixaban 5 Mg Tablet) 5 mg PO BID [facility] Stop: 10/08/24 08:59 Last Admin: 09/17/24 20:55 Dose: 5 mg Aripiprazole (Aripiprazole 5 Mg Tablet) 5 mg PO DAILY@1730 [facility] Last Admin: 09/17/24 18:10 Dose: 5 mg Benzocaine (Throat Lozenge, Medicated Lozenge) 1 lozenge MUCOUS MEM Q2H PRN PRN Reason: Sore Throat Clozapine 100 mg/ Clozapine 50 (mg) 150 mg PO DAILY@2000 [facility] Last Admin: 09/17/24 20:54 Dose: 150 mg Divalproex Sodium (Divalproex Sodium Sprinkles 125 Mg Cap.Spr) 500 mg PO BEDTIME [facility] Last Admin: 09/17/24 20:53 Dose: 500 mg Ferrous Sulfate (Ferrous Sulfate 324 Mg Tablet.Dr) 324 mg PO DAILY [facility] Last Admin: 09/17/24 08:35 Dose: 324 mg Finasteride (Finasteride 5 Mg Tablet) 5 mg PO DAILY [facility] Last Admin: 09/17/24 08:34 Dose: 5 mg Ketamine HCl 500 mg/ Sodium (Chloride) 255 mls @ 22.364 mls/hr IV .[id number] [facility]; Protocol Magnesium Hydroxide (Milk Of Magnesia 30 Ml Oral.Susp) 30 ml PO DAILY PRN PRN Reason: Constipation Last Admin: 09/17/24 15:15 Dose: 30 ml Mirtazapine (Mirtazapine 7.5 Mg Tablet) 7.5 mg PO BEDTIME [facility] Last Admin: 09/17/24 20:55 Dose: 7.5 mg Olanzapine (Olanzapine Odt 10 Mg Tab.Rapdis) 5 mg TRANSLINGU BID PRN PRN Reason: agitation Last Admin: 08/24/24 20:56 Dose: 5 mg Pramipexole Dihydrochloride (Pramipexole Di-Hcl 0.25 Mg Tablet) 0.5 mg PO TID [facility] Last Admin: 09/17/24 20:55 Dose: 0.5 mg Sertraline HCl (Sertraline Hcl 50 Mg Tablet) 50 mg PO DAILY [facility] Last Admin: 09/17/24 08:35 Dose: 50 mg Sodium Chloride (0.9 % Sodium Chloride Flush 10 Ml Syringe) 10 ml IVFLUSH QSHIFT [facility] Last Admin: 09/17/24 15:04 Dose: 10 ml Tamsulosin HCl (Tamsulosin Hcl 0.4 Mg Capsule) 0.8 mg PO BEDTIME [facility] Last Admin: 09/17/24 20:54 Dose: 0.8 mg Thiamine HCl (Thiamine Hcl 100 Mg Tablet) 100 mg PO DAILY [facility] Last Admin: 09/17/24 08:34 Dose: 100 mg Allergies Allergies Allergy/AdvReac Type Severity Reaction Status Date / Time No Known Allergies (NKA) Allergy Unknown NONE Verified 06/19/24 20:43 Assessment & Plan Assessment & Plan (1) Left cephalic vein thrombosis: Status: Acute Code(s): I82.612 - Acute embolism and thrombosis of superficial veins of left upper extremity Plan Nonocclusive thrombus left cephalic vein Discuss case with Aldo who recommended 4 weeks of Eliquis which is ordered Elevate extremity Midline to be removed-we will defer decision to reinsert midline for ketamine treatments to psychiatry team. 09/10/2024 Ketamine scheduled for 2 days from today midline to be placed Eliquis ordered case for cephalic vein thrombosis being managed by hospitalist service 09/11/2024 Patient showing gradual improvement ketamine scheduled for tomorrow reinsertion of midline more alert improved engagement no hallucinations delusional material or aggression noted today still flat needs cuing aware of discharge planning ketamine scheduled for the morning continue clozapine sertraline Abilify per catatonia protocol 09/12/2024 Continue clozapine sertraline Abilify improvement noted discharge planning meeting scheduled 08/2024 Continue plan of care no change indicated [id number] time discharge planning meeting shortly has responded to weekly ketamine 09/14: Continue current regimen and plans 09/15: Continue current regimen and plans 09/16/24 Continue clozapine scheduled another ketamine treatment for this week discussed discharge planning and transition 09/17/2024 Extensive discussion patient with chronic intermittent catatonia eventually seem to respond less unless CT appears to have had a response to current regimen including intravenous ketamine unclear if this will be available after discharge tapering down to 1 time a week he is on the catatonia protocol including dopamine agonist also for parkinsonian symptoms Depakote sertraline which has been helpful in the past Abilify had been recommended as an add on to clozapine in this situation also Guardian/Caregiver educated on: diagnosis, medication risk/benefits and medical condition Informed Consent: further education needed Reason for continued inpatient stay Substantial Risk for: inability to function, rapid decompensation and med/psych decompensation Time Spent With Patient Time: Total time managing care of this patient today __20__ minutes.
[2024-09-18 08:00] VITALS: BP 111/55; PULSE 91; RESP 18; TEMP 37.1; O2SAT 96
[2024-09-18] MEDS: Ferrous Sulfate 324 MG TABLET.DR PO (08:06)
[2024-09-18] MEDS: 0.9 % Sodium Chloride Flush 10 ML SYRINGE IVFLUSH ×2 (08:07→15:48)
[2024-09-18 20:00] VITALS: BP 117/64; PULSE 87; TEMP 36.8; O2SAT 96
[2024-09-18] MEDS: Divalproex Sodium Sprinkles 125 MG CAP.DR.SPR 500 MG PO (20:47)
[2024-09-19] VITALS (12 sets, daily range): BP systolic 106–130; BP diastolic 58–72; PULSE 64–94; RESP 11–22; TEMP 36.4–37.2; O2SAT 95–100; BMI 28.8
[2024-09-19] MEDS: 0.9 % Sodium Chloride Flush 10 ML SYRINGE IVFLUSH ×2 (00:17→17:10)
[2024-09-19] MEDS: Ketamine HCl 500 MG in 0.9 % Sodium Chloride 250 ML 22.36 MG IV (08:11)
[2024-09-19] MEDS: Ferrous Sulfate 324 MG TABLET.DR PO (10:49)
[2024-09-19] MEDS: Divalproex Sodium Sprinkles 125 MG CAP.DR.SPR 500 MG PO (21:14)
--- NOTE | 2024-09-19 23:53 | P.PNPSI_ITS ---
Subjective Subjective Date of Service: 09/18/24 Reason For Visit: catatonia Subjective Notes: Conditional Voluntary Healthcare Proxy: Yes Interim History: Patient seen psychiatric follow-up some periods despair and anxiety noted. Patient having a difficult time taking in information at times needs to be educated regarding periods of time that he had been catatonic state and in the ICU he has lost memory for those periods continues have a difficult time taking in information. Intermittently withdrawn at other times more engaged often isolating Medication Compliance: Yes Mental Status Exam Mental Status Exam Patient Appearance: Appropriate Patient Orientation: Person, Place and Situation Level of Consciousness: Awake and Alert Patient Behavior: Appropriate Mood Description: Depressed and Blunted Affect Description: Blunted and Apprehensive Patient Cognition Impaired: No Ability to Follow Directions: Good Speech Pattern: Monotone and Soft-Spoken Delusions: Not Present Thought Process: Slowed Thinking Thought Content: negative for Suicidal Ideation or negative for Homicidal Ideation Depressive Symptoms: Increased Anxiety Judgement: Good Judgement and Insight: Some periods of irritability frustration and dysphoria but not physically aggressive. Agreeable to continued ketamine treatment Future oriented poverty of content Diagnostics Vital Signs (24Hr): Vital Signs - 24 hr 09/19/24 07:53 09/19/24 08:20 09/19/24 08:35 Temperature 99.0 F Pulse Rate 84 80 65 Respiratory Rate 16 22 H 17 Blood Pressure 121/62 121/59 L 106/61 Pulse Oximetry 98 98 97 Oxygen Delivery Method Room Air Room Air Room Air 09/19/24 08:40 09/19/24 08:55 09/19/24 09:10 Temperature Pulse Rate 64 68 74 Respiratory Rate 12 14 15 Blood Pressure 106/61 110/58 L 116/68 Pulse Oximetry 98 98 99 Oxygen Delivery Method Room Air Room Air 09/19/24 09:25 09/19/24 09:40 09/19/24 10:00 Temperature Pulse Rate 73 72 74 Respiratory Rate 14 21 H 17 Blood Pressure 125/65 126/72 120/66 Pulse Oximetry 100 100 98 Oxygen Delivery Method Room Air Room Air Room Air 09/19/24 10:23 09/19/24 10:40 09/19/24 19:40 Temperature 97.5 F 98.8 F Pulse Rate 78 69 94 Respiratory Rate 11 L 14 16 Blood Pressure 112/61 130/72 123/58 L Pulse Oximetry 99 99 95 Oxygen Delivery Method Room Air Room Air Room Air BMI result Body Mass Index 28.8 Labs 09/17/24 10:47 09/10/24 07:44 Imaging Radiology Impressions: ITS Impressions Venous Duplex 09/09/24 14:33 IMPRESSION: Nonocclusive thrombus, left cephalic vein. Electronically signed by: Mayank Irwin MD 09/09/2024 03:31 PM EDT RP Medications Medications Current Medications Acetaminophen (Acetaminophen 325 Mg Tablet) 650 mg PO Q6H PRN PRN Reason: Headache/Pain, Scale 1-10 Last Admin: 09/06/24 02:01 Dose: 650 mg Al Hydroxide/Mg Hydroxide (Magnesium Hydrox/Alum Hydrox 30 Ml Oral.Susp) 30 ml PO Q6H PRN PRN Reason: Heartburn/Nausea Last Admin: 08/17/24 21:50 Dose: 30 ml Albuterol/Ipratropium (Albuterol/Iprat 2.5/0.5mg 3 Ml Ampul.Neb) 3 ml INHALE QID PRN PRN Reason: wheezing Apixaban (Apixaban 5 Mg Tablet) 5 mg PO BID [facility] Stop: 10/08/24 08:59 Last Admin: 09/19/24 21:14 Dose: 5 mg Aripiprazole (Aripiprazole 5 Mg Tablet) 5 mg PO DAILY@1730 [facility] Last Admin: 09/19/24 17:09 Dose: 5 mg Benzocaine (Throat Lozenge, Medicated Lozenge) 1 lozenge MUCOUS MEM Q2H PRN PRN Reason: Sore Throat Clozapine 100 mg/ Clozapine 50 (mg) 150 mg PO DAILY@2000 [facility] Last Admin: 09/19/24 21:13 Dose: 150 mg Divalproex Sodium (Divalproex Sodium Sprinkles 125 Mg Cap.Spr) 500 mg PO BEDTIME [facility] Last Admin: 09/19/24 21:14 Dose: 500 mg Ferrous Sulfate (Ferrous Sulfate 324 Mg Tablet.Dr) 324 mg PO DAILY [facility] Last Admin: 09/19/24 10:49 Dose: 324 mg Finasteride (Finasteride 5 Mg Tablet) 5 mg PO DAILY [facility] Last Admin: 09/19/24 10:49 Dose: 5 mg Magnesium Hydroxide (Milk Of Magnesia 30 Ml Oral.Susp) 30 ml PO DAILY PRN PRN Reason: Constipation Last Admin: 09/17/24 15:15 Dose: 30 ml Mirtazapine (Mirtazapine 7.5 Mg Tablet) 7.5 mg PO BEDTIME [facility] Last Admin: 09/19/24 21:13 Dose: 7.5 mg Olanzapine (Olanzapine Odt 10 Mg Tab.Rapdis) 5 mg TRANSLINGU BID PRN PRN Reason: agitation Last Admin: 08/24/24 20:56 Dose: 5 mg Pramipexole Dihydrochloride (Pramipexole Di-Hcl 0.25 Mg Tablet) 0.5 mg PO TID [facility] Last Admin: 09/19/24 21:13 Dose: 0.5 mg Sertraline HCl (Sertraline Hcl 50 Mg Tablet) 50 mg PO DAILY [facility] Last Admin: 09/19/24 10:49 Dose: 50 mg Sodium Chloride (0.9 % Sodium Chloride Flush 10 Ml Syringe) 10 ml IVFLUSH QSHIFT [facility] Last Admin: 09/19/24 17:10 Dose: 10 ml Tamsulosin HCl (Tamsulosin Hcl 0.4 Mg Capsule) 0.8 mg PO BEDTIME [facility] Last Admin: 09/19/24 21:13 Dose: 0.8 mg Thiamine HCl (Thiamine Hcl 100 Mg Tablet) 100 mg PO DAILY [facility] Last Admin: 09/19/24 10:49 Dose: 100 mg Allergies Allergies Allergy/AdvReac Type Severity Reaction Status Date / Time No Known Allergies (NKA) Allergy Unknown NONE Verified 06/19/24 20:43 Assessment & Plan Assessment & Plan (1) Left cephalic vein thrombosis: Status: Acute Code(s): I82.612 - Acute embolism and thrombosis of superficial veins of left upper extremity Plan Nonocclusive thrombus left cephalic vein Discuss case with Aldo who recommended 4 weeks of Eliquis which is ordered Elevate extremity Midline to be removed-we will defer decision to reinsert midline for ketamine treatments to psychiatry team. 09/10/2024 Ketamine scheduled for 2 days from today midline to be placed Eliquis ordered case for cephalic vein thrombosis being managed by hospitalist service 09/11/2024 Patient showing gradual improvement ketamine scheduled for tomorrow reinsertion of midline more alert improved engagement no hallucinations delusional material or aggression noted today still flat needs cuing aware of discharge planning ketamine scheduled for the morning continue clozapine sertraline Abilify per catatonia protocol 09/12/2024 Continue clozapine sertraline Jillian improvement noted discharge planning meeting scheduled 08/2024 Continue plan of care no change indicated [id number] time discharge planning meeting shortly has responded to weekly ketamine 09/14: Continue current regimen and plans 09/15: Continue current regimen and plans 09/16/24 Continue clozapine scheduled another ketamine treatment for this week discussed discharge planning and transition Patient educated on: medication risk/benefits and medical condition Reason for continued inpatient stay Substantial Risk for: inability to function, rapid decompensation and med/psych decompensation Time Spent With Patient Time: Total time managing care of this patient today __20__ minutes.
[2024-09-20] MEDS: 0.9 % Sodium Chloride Flush 10 ML SYRINGE IVFLUSH ×3 (01:00→17:45)
[2024-09-20 08:33] VITALS: BP 129/75; PULSE 90; RESP 15; TEMP 36.9; O2SAT 97
[2024-09-20] MEDS: Ferrous Sulfate 324 MG TABLET.DR PO (08:38)
--- NOTE | 2024-09-20 12:52 | HO.PSYCHPN ---
Subjective Subjective Date of Service: 09/19/24 Reason For Visit: catatonia Subjective Notes: Conditional Voluntary Healthcare Proxy: Yes Interim History: Patient received intravenous ketamine treatment yesterday with good effect. His midline is working well Patient flat blunted poverty of content some periods of brightening engagement Medication Compliance: Yes Attending Groups: Intermittent Review of Systems Acute medical concerns: No Mental Status Exam Mental Status Exam Patient Appearance: Unkempt Patient Orientation: Person, Place and Situation Level of Consciousness: Awake and Alert Patient Behavior: Appropriate and Passive Mood Description: Depressed and Blunted Affect Description: Blunted and Apprehensive Patient Cognition Impaired: No Ability to Follow Directions: Good Speech Pattern: Monotone and Soft-Spoken Delusions: Not Present Thought Process: Slowed Thinking Thought Content: negative for Suicidal Ideation or negative for Homicidal Ideation Depressive Symptoms: Increased Anxiety Judgement: Good Judgement and Insight: Some periods of dysphoria and irritability generally patient has been cooperative less combative more alert Diagnostics Vital Signs (24Hr): Vital Signs - 24 hr 09/19/24 19:40 09/20/24 08:33 Temperature 98.8 F 98.4 F Pulse Rate 94 90 Respiratory Rate 16 15 Blood Pressure 123/58 L 129/75 Pulse Oximetry 95 97 Oxygen Delivery Method Room Air Room Air BMI result Body Mass Index 28.8 Labs 09/17/24 10:47 09/10/24 07:44 Imaging Radiology Impressions: ITS Impressions Venous Duplex 09/09/24 14:33 IMPRESSION: Nonocclusive thrombus, left cephalic vein. Electronically signed by: Mayank Irwin MD 09/09/2024 03:31 PM EDT Medications Medications Current Medications Acetaminophen (Acetaminophen 325 Mg Tablet) 650 mg PO Q6H PRN PRN Reason: Headache/Pain, Scale 1-10 Last Admin: 09/06/24 02:01 Dose: 650 mg Al Hydroxide/Mg Hydroxide (Magnesium Hydrox/Alum Hydrox 30 Ml Oral.Susp) 30 ml PO Q6H PRN PRN Reason: Heartburn/Nausea Last Admin: 08/17/24 21:50 Dose: 30 ml Albuterol/Ipratropium (Albuterol/Iprat 2.5/0.5mg 3 Ml Ampul.Neb) 3 ml INHALE QID PRN PRN Reason: wheezing Apixaban (Apixaban 5 Mg Tablet) 5 mg PO BID [facility] Stop: 10/08/24 08:59 Last Admin: 09/20/24 08:38 Dose: 5 mg Aripiprazole (Aripiprazole 5 Mg Tablet) 5 mg PO DAILY@1730 [facility] Last Admin: 09/19/24 17:09 Dose: 5 mg Benzocaine (Throat Lozenge, Medicated Lozenge) 1 lozenge MUCOUS MEM Q2H PRN PRN Reason: Sore Throat Clozapine 100 mg/ Clozapine 50 (mg) 150 mg PO DAILY@1999 [facility] Last Admin: 09/19/24 21:13 Dose: 150 mg Divalproex Sodium (Divalproex Sodium Sprinkles 125 Mg Cap.Dr.Spr) 500 mg PO BEDTIME [facility] Last Admin: 09/19/24 21:14 Dose: 500 mg Ferrous Sulfate (Ferrous Sulfate 324 Mg Tablet.Dr) 324 mg PO DAILY [facility] Last Admin: 09/20/24 08:38 Dose: 324 mg Finasteride (Finasteride 5 Mg Tablet) 5 mg PO DAILY [facility] Last Admin: 09/20/24 08:38 Dose: 5 mg Magnesium Hydroxide (Milk Of Magnesia 30 Ml Oral.Susp) 30 ml PO DAILY PRN PRN Reason: Constipation Last Admin: 09/17/24 15:15 Dose: 30 ml Mirtazapine (Mirtazapine 7.5 Mg Tablet) 7.5 mg PO BEDTIME [facility] Last Admin: 09/19/24 21:13 Dose: 7.5 mg Olanzapine (Olanzapine Odt 10 Mg Tab.Rapdis) 5 mg TRANSLINGU BID PRN PRN Reason: agitation Last Admin: 08/24/24 20:56 Dose: 5 mg Pramipexole Dihydrochloride (Pramipexole Di-Hcl 0.25 Mg Tablet) 0.5 mg PO TID [facility] Last Admin: 09/20/24 08:38 Dose: 0.5 mg Sertraline HCl (Sertraline Hcl 50 Mg Tablet) 50 mg PO DAILY [facility] Last Admin: 09/20/24 08:38 Dose: 50 mg Sodium Chloride (0.9 % Sodium Chloride Flush 10 Ml Syringe) 10 ml IVFLUSH QSHIFT [facility] Last Admin: 09/20/24 08:37 Dose: 10 ml Tamsulosin HCl (Tamsulosin Hcl 0.4 Mg Capsule) 0.8 mg PO BEDTIME [facility] Last Admin: 09/19/24 21:13 Dose: 0.8 mg Thiamine HCl (Thiamine Hcl 100 Mg Tablet) 100 mg PO DAILY [facility] Last Admin: 09/20/24 08:38 Dose: 100 mg Allergies Allergies Allergy/AdvReac Type Severity Reaction Status Date / Time No Known Allergies (NKA) Allergy Unknown NONE Verified 06/19/24 20:43 Assessment & Plan Assessment & Plan (1) Schizoaffective disorder: Status: Acute Code(s): F25.9 - Schizoaffective disorder, unspecified (2) Catatonia: Status: Acute Code(s): F06.1 - Catatonic disorder due to known physiological condition Plan Nonocclusive thrombus left cephalic vein Discuss case with Aldo who recommended 4 weeks of Eliquis which is ordered Elevate extremity Midline to be removed-we will defer decision to reinsert midline for ketamine treatments to psychiatry team. 09/10/2024 Ketamine scheduled for 2 days from today midline to be placed Eliquis ordered case for cephalic vein thrombosis being managed by hospitalist service 09/11/2024 Patient showing gradual improvement ketamine scheduled for tomorrow reinsertion of midline more alert improved engagement no hallucinations delusional material or aggression noted today still flat needs cuing aware of discharge planning ketamine scheduled for the morning continue clozapine sertraline Abilify per catatonia protocol 09/12/2024 Continue clozapine sertraline Abilify improvement noted discharge planning meeting scheduled 08/2024 Continue plan of care no change indicated [id number] time discharge planning meeting shortly has responded to weekly ketamine 09/14: Continue current regimen and plans 09/15: Continue current regimen and plans 09/16/24 Continue clozapine scheduled another ketamine treatment for this week discussed discharge planning and transition 09/19/2024 Patient tolerated ketamine well no less restrictive setting available. If unable to get ketamine outpatient will taper and discontinue patient with significant cognitive changes status post catatonia and ICU admission question etiology TSH B12 folate unremarkable Reason for continued inpatient stay Substantial Risk for: inability to function, rapid decompensation and med/psych decompensation Time Spent With Patient Time: Total time managing care of this patient today ____ minutes.
--- NOTE | 2024-09-20 12:59 | P.PNPSI_ITS ---
Subjective Subjective Date of Service: 09/20/24 Reason For Visit: catatonia Subjective Notes: Conditional Voluntary Healthcare Proxy: Yes Interim History: The patient showing clear gradual improvement remains with slowed mentation although some decrease in latency question residual from chronic catatonia knows place year month difficulty with reasoning denies gross hallucinations Medication Compliance: Yes Mental Status Exam Mental Status Exam Patient Appearance: Appropriate Patient Orientation: Person, Place and Situation Level of Consciousness: Awake and Alert Patient Behavior: Appropriate and Passive Mood Description: Depressed and Blunted Affect Description: Blunted and Apprehensive Patient Cognition Impaired: No Ability to Follow Directions: Good Speech Pattern: Monotone and Soft-Spoken Delusions: Not Present Thought Process: Slowed Thinking Thought Content: negative for Suicidal Ideation or negative for Homicidal Ideation Depressive Symptoms: Increased Anxiety Judgement: Good Judgement and Insight: Some periods of dysphoria and irritability generally patient has been cooperative less combative more alert Diagnostics Vital Signs (24Hr): Vital Signs - 24 hr 09/19/24 19:40 09/20/24 08:33 Temperature 98.8 F 98.4 F Pulse Rate 94 90 Respiratory Rate 16 15 Blood Pressure 123/58 L 129/75 Pulse Oximetry 95 97 Oxygen Delivery Method Room Air Room Air BMI result Body Mass Index 28.8 Labs 09/17/24 10:47 09/10/24 07:44 Imaging Radiology Impressions: ITS Impressions Venous Duplex 09/09/24 14:33 IMPRESSION: Nonocclusive thrombus, left cephalic vein. Electronically signed by: Mayank Irwin MD 09/09/2024 03:31 PM EDT RP Medications Medications Current Medications Acetaminophen (Acetaminophen 325 Mg Tablet) 650 mg PO Q6H PRN PRN Reason: Headache/Pain, Scale 1-10 Last Admin: 09/06/24 02:01 Dose: 650 mg Al Hydroxide/Mg Hydroxide (Magnesium Hydrox/Alum Hydrox 30 Ml Oral.Susp) 30 ml PO Q6H PRN PRN Reason: Heartburn/Nausea Last Admin: 08/17/24 21:50 Dose: 30 ml Albuterol/Ipratropium (Albuterol/Iprat 2.5/0.5mg 3 Ml Ampul.Neb) 3 ml INHALE QID PRN PRN Reason: wheezing Apixaban (Apixaban 5 Mg Tablet) 5 mg PO BID [facility] Stop: 10/08/24 08:59 Last Admin: 09/20/24 08:38 Dose: 5 mg Aripiprazole (Aripiprazole 5 Mg Tablet) 5 mg PO DAILY@1730 [facility] Last Admin: 09/19/24 17:09 Dose: 5 mg Benzocaine (Throat Lozenge, Medicated Lozenge) 1 lozenge MUCOUS MEM Q2H PRN PRN Reason: Sore Throat Clozapine 100 mg/ Clozapine 50 (mg) 150 mg PO DAILY@2000 [facility] Last Admin: 09/19/24 21:13 Dose: 150 mg Divalproex Sodium (Divalproex Sodium Sprinkles 125 Mg Cap..Spr) 500 mg PO BEDTIME [facility] Last Admin: 09/19/24 21:14 Dose: 500 mg Ferrous Sulfate (Ferrous Sulfate 324 Mg Tablet.Dr) 324 mg PO DAILY [facility] Last Admin: 09/20/24 08:38 Dose: 324 mg Finasteride (Finasteride 5 Mg Tablet) 5 mg PO DAILY [facility] Last Admin: 09/20/24 08:38 Dose: 5 mg Magnesium Hydroxide (Milk Of Magnesia 30 Ml Oral.Susp) 30 ml PO DAILY PRN PRN Reason: Constipation Last Admin: 09/17/24 15:15 Dose: 30 ml Mirtazapine (Mirtazapine 7.5 Mg Tablet) 7.5 mg PO BEDTIME [facility] Last Admin: 09/19/24 21:13 Dose: 7.5 mg Olanzapine (Olanzapine Odt 10 Mg Tab.Rapdis) 5 mg TRANSLINGU BID PRN PRN Reason: agitation Last Admin: 08/24/24 20:56 Dose: 5 mg Pramipexole Dihydrochloride (Pramipexole Di-Hcl 0.25 Mg Tablet) 0.5 mg PO TID [facility] Last Admin: 09/20/24 08:38 Dose: 0.5 mg Sertraline HCl (Sertraline Hcl 50 Mg Tablet) 50 mg PO DAILY [facility] Last Admin: 09/20/24 08:38 Dose: 50 mg Sodium Chloride (0.9 % Sodium Chloride Flush 10 Ml Syringe) 10 ml IVFLUSH QSHIFT [facility] Last Admin: 09/20/24 08:37 Dose: 10 ml Tamsulosin HCl (Tamsulosin Hcl 0.4 Mg Capsule) 0.8 mg PO BEDTIME [facility] Last Admin: 09/19/24 21:13 Dose: 0.8 mg Thiamine HCl (Thiamine Hcl 100 Mg Tablet) 100 mg PO DAILY [facility] Last Admin: 09/20/24 08:38 Dose: 100 mg Allergies Allergies Allergy/AdvReac Type Severity Reaction Status Date / Time No Known Allergies (NKA) Allergy Unknown NONE Verified 06/19/24 20:43 Assessment & Plan Assessment & Plan (1) Schizoaffective disorder: Status: Acute Code(s): F25.9 - Schizoaffective disorder, unspecified (2) Catatonia: Status: Acute Code(s): F06.1 - Catatonic disorder due to known physiological condition Plan Nonocclusive thrombus left cephalic vein Discuss case with Aldo who recommended 4 weeks of Eliquis which is ordered Elevate extremity Midline to be removed-we will defer decision to reinsert midline for ketamine treatments to psychiatry team. 09/10/2024 Ketamine scheduled for 2 days from today midline to be placed Eliquis ordered case for cephalic vein thrombosis being managed by hospitalist service 09/11/2024 Patient showing gradual improvement ketamine scheduled for tomorrow reinsertion of midline more alert improved engagement no hallucinations delusional material or aggression noted today still flat needs cuing aware of discharge planning ketamine scheduled for the morning continue clozapine sertraline Abilify per catatonia protocol 09/12/2024 Continue clozapine sertraline Abilify improvement noted discharge planning meeting scheduled 08/2024 Continue plan of care no change indicated [id number] time discharge planning meeting shortly has responded to weekly ketamine 09/14: Continue current regimen and plans 09/15: Continue current regimen and plans 09/16/24 Continue clozapine scheduled another ketamine treatment for this week discussed discharge planning and transition 09/19/2024 Patient tolerated ketamine well no less restrictive setting available. If unable to get ketamine outpatient will taper and discontinue patient with significant cognitive changes status post catatonia and ICU admission question etiology TSH B12 folate unremarkable 09/20/2024 Continue clozapine and Depakote check Depakote level trying to limit dosing to moderate doses avoid over-sedationcont ketamine as possible now 1 x wk Patient educated on: therapeutic strategies Informed Consent: further education needed Reason for continued inpatient stay Substantial Risk for: inability to function, rapid decompensation and med/psych decompensation Time Spent With Patient Time: Total time managing care of this patient today ____ minutes.
[2024-09-20 20:00] VITALS: BP 137/65; PULSE 78; RESP 18; TEMP 36.6; O2SAT 99
[2024-09-20] MEDS: Divalproex Sodium Sprinkles 125 MG CAP.DR.SPR 500 MG PO (20:49)
[2024-09-21] MEDS: 0.9 % Sodium Chloride Flush 10 ML SYRINGE IVFLUSH ×3 (00:03→17:04)
[2024-09-21 08:00] VITALS: BP 119/62; PULSE 83; RESP 18; TEMP 36.2; O2SAT 99
[2024-09-21] MEDS: Ferrous Sulfate 324 MG TABLET.DR PO (08:27)
--- NOTE | 2024-09-21 19:19 | P.PNPSI_ITS ---
Subjective Subjective Date of Service: 09/21/24 Reason For Visit: catatonia Subjective Notes: Conditional Voluntary Interim History: Pt slept through the night. He is visible on the unit. He reports he has mouth movements and tremor but states is not painful. He denies SI/HI. No overt psychosis or delusions noted. No aggression. taking medications as prescribed. Review of Systems Review of Systems Denies any shortness of breath, chest pain, dizziness, lightheadedness, abdominal pain or discomfort, nausea vomiting or diarrhea Yes all other systems are reviewed and are negative and Unobtainable due to mental status Mental Status Exam Mental Status Exam Narrative: Alert, oriented to place, month, year. No overt psychosis or delusional content. affect constricted but congruent. No SI/HI. No aggression towards self or others. Diagnostics Vital Signs (24Hr): Vital Signs - 24 hr 09/20/24 20:00 09/21/24 08:00 Temperature 97.9 F 97.2 F Pulse Rate 78 83 Respiratory Rate 18 18 Blood Pressure 137/65 119/62 Pulse Oximetry 99 99 Oxygen Delivery Method Room Air Room Air BMI result Body Mass Index 28.8 Labs 09/17/24 10:47 09/10/24 07:44 Imaging Radiology Impressions: ITS Impressions Venous Duplex 09/09/24 14:33 IMPRESSION: Nonocclusive thrombus, left cephalic vein. Electronically signed by: Mayank Irwin MD 09/09/2024 03:31 PM EDT RP Medications Medications Current Medications Acetaminophen (Acetaminophen 325 Mg Tablet) 650 mg PO Q6H PRN PRN Reason: Headache/Pain, Scale 1-10 Last Admin: 09/06/24 02:01 Dose: 650 mg Al Hydroxide/Mg Hydroxide (Magnesium Hydrox/Alum Hydrox 30 Ml Oral.Susp) 30 ml PO Q6H PRN PRN Reason: Heartburn/Nausea Last Admin: 08/17/24 21:50 Dose: 30 ml Albuterol/Ipratropium (Albuterol/Iprat 2.5/0.5mg 3 Ml Ampul.Neb) 3 ml INHALE QID PRN PRN Reason: wheezing Apixaban (Apixaban 5 Mg Tablet) 5 mg PO BID KRISTIN Stop: 10/08/24 08:59 Last Admin: 09/21/24 08:28 Dose: 5 mg Aripiprazole (Aripiprazole 5 Mg Tablet) 5 mg PO DAILY@1730 [facility] Last Admin: 09/21/24 17:08 Dose: 5 mg Benzocaine (Throat Lozenge, Medicated Lozenge) 1 lozenge MUCOUS MEM Q2H PRN PRN Reason: Sore Throat Clozapine 100 mg/ Clozapine 50 (mg) 150 mg PO DAILY@2000 [facility] Last Admin: 09/20/24 20:49 Dose: 150 mg Divalproex Sodium (Divalproex Sodium Sprinkles 125 Mg Cap.Dr.Spr) 500 mg PO BEDTIME [facility] Last Admin: 09/20/24 20:49 Dose: 500 mg Ferrous Sulfate (Ferrous Sulfate 324 Mg Tablet.Dr) 324 mg PO DAILY [facility] Last Admin: 09/21/24 08:27 Dose: 324 mg Finasteride (Finasteride 5 Mg Tablet) 5 mg PO DAILY [facility] Last Admin: 09/21/24 08:30 Dose: 5 mg Magnesium Hydroxide (Milk Of Magnesia 30 Ml Oral.Susp) 30 ml PO DAILY PRN PRN Reason: Constipation Last Admin: 09/17/24 15:15 Dose: 30 ml Mirtazapine (Mirtazapine 7.5 Mg Tablet) 7.5 mg PO BEDTIME [facility] Last Admin: 09/20/24 20:49 Dose: 7.5 mg Olanzapine (Olanzapine Odt 10 Mg Tab.Rapdis) 5 mg TRANSLINGU BID PRN PRN Reason: agitation Last Admin: 08/24/24 20:56 Dose: 5 mg Pramipexole Dihydrochloride (Pramipexole Di-Hcl 0.25 Mg Tablet) 0.5 mg PO TID [facility] Last Admin: 09/21/24 15:16 Dose: 0.5 mg Sertraline HCl (Sertraline Hcl 50 Mg Tablet) 50 mg PO DAILY [facility] Last Admin: 09/21/24 08:27 Dose: 50 mg Sodium Chloride (0.9 % Sodium Chloride Flush 10 Ml Syringe) 10 ml IVFLUSH QSHIFT [facility] Last Admin: 09/21/24 17:04 Dose: 10 ml Tamsulosin HCl (Tamsulosin Hcl 0.4 Mg Capsule) 0.8 mg PO BEDTIME [facility] Last Admin: 09/20/24 20:50 Dose: 0.8 mg Thiamine HCl (Thiamine Hcl 100 Mg Tablet) 100 mg PO DAILY [facility] Last Admin: 09/21/24 08:28 Dose: 100 mg Allergies Allergies Allergy/AdvReac Type Severity Reaction Status Date / Time No Known Allergies (NKA) Allergy Unknown NONE Verified 06/19/24 20:43 Assessment & Plan Assessment & Plan (1) Schizoaffective disorder: Status: Acute Code(s): F25.9 - Schizoaffective disorder, unspecified (2) Catatonia: Status: Acute Code(s): F06.1 - Catatonic disorder due to known physiological condition Plan Nonocclusive thrombus left cephalic vein Discuss case with Aldo who recommended 4 weeks of Eliquis which is ordered Elevate extremity Midline to be removed-we will defer decision to reinsert midline for ketamine treatments to psychiatry team. 09/10/2024 Ketamine scheduled for 2 days from today midline to be placed Eliquis ordered case for cephalic vein thrombosis being managed by hospitalist service 09/11/2024 Patient showing gradual improvement ketamine scheduled for tomorrow reinsertion of midline more alert improved engagement no hallucinations delusional material or aggression noted today still flat needs cuing aware of discharge planning ketamine scheduled for the morning continue clozapine sertraline Abilify per catatonia protocol 09/12/2024 Continue clozapine sertraline Abilify improvement noted discharge planning meeting scheduled 08/2024 Continue plan of care no change indicated [id number] time discharge planning meeting shortly has responded to weekly ketamine 09/14: Continue current regimen and plans 09/15: Continue current regimen and plans 09/16/24 Continue clozapine scheduled another ketamine treatment for this week discussed discharge planning and transition 09/19/2024 Patient tolerated ketamine well no less restrictive setting available. If unable to get ketamine outpatient will taper and discontinue patient with significant cognitive changes status post catatonia and ICU admission question etiology TSH B12 folate unremarkable 09/21 continue tx. Reason for continued inpatient stay Substantial Risk for: inability to function Time Spent With Patient Time: Total time managing care of this patient today ____ minutes.
[2024-09-21 20:00] VITALS: BP 131/59; PULSE 91; RESP 18; TEMP 36.9; O2SAT 95
[2024-09-21] MEDS: Divalproex Sodium Sprinkles 125 MG CAP.DR.SPR 500 MG PO (20:19)
[2024-09-22] MEDS: 0.9 % Sodium Chloride Flush 10 ML SYRINGE IVFLUSH ×4 (00:22→23:17)
[2024-09-22 08:10] VITALS: BP 116/58; PULSE 92; RESP 18; TEMP 36.4; O2SAT 97
[2024-09-22] MEDS: Ferrous Sulfate 324 MG TABLET.DR PO (08:22)
--- NOTE | 2024-09-22 16:05 | P.PNPSI_ITS ---
Subjective Subjective Date of Service: 09/22/24 Reason For Visit: catatonia Subjective Notes: Conditional Voluntary Interim History: Pt slept through the night. He is visible on the unit. He reports doing well, asks about discharged, explained that he needs to talk with treatment team tomorrow about it. He denies SI/HI. No overt psychosis or delusions noted. No aggression. taking medications as prescribed. Review of Systems Review of Systems Denies any shortness of breath, chest pain, dizziness, lightheadedness, abdominal pain or discomfort, nausea vomiting or diarrhea Yes all other systems are reviewed and are negative and Unobtainable due to mental status Mental Status Exam Mental Status Exam Narrative: Alert, oriented to place, month, year. No overt psychosis or delusional content. affect constricted but congruent. No SI/HI. No aggression towards self or others. Diagnostics Vital Signs (24Hr): Vital Signs - 24 hr 09/21/24 20:00 09/22/24 08:10 Temperature 98.4 F 97.5 F Pulse Rate 91 92 Respiratory Rate 18 18 Blood Pressure 131/59 L 116/58 L Pulse Oximetry 95 97 Oxygen Delivery Method Room Air Room Air BMI result Body Mass Index 28.8 Labs 09/17/24 10:47 09/10/24 07:44 Imaging Radiology Impressions: ITS Impressions Venous Duplex 09/09/24 14:33 IMPRESSION: Nonocclusive thrombus, left cephalic vein. Electronically signed by: Mayank Irwin MD 09/09/2024 03:31 PM EDT Medications Medications Current Medications Acetaminophen (Acetaminophen 325 Mg Tablet) 650 mg PO Q6H PRN PRN Reason: Headache/Pain, Scale 1-10 Last Admin: 09/06/24 02:01 Dose: 650 mg Al Hydroxide/Mg Hydroxide (Magnesium Hydrox/Alum Hydrox 30 Ml Oral.Susp) 30 ml PO Q6H PRN PRN Reason: Heartburn/Nausea Last Admin: 08/17/24 21:50 Dose: 30 ml Albuterol/Ipratropium (Albuterol/Iprat 2.5/0.5mg 3 Ml Ampul.Neb) 3 ml INHALE QID PRN PRN Reason: wheezing Apixaban (Apixaban 5 Mg Tablet) 5 mg PO BID KRISTIN Stop: 10/08/24 08:59 Last Admin: 09/22/24 08:22 Dose: 5 mg Aripiprazole (Aripiprazole 5 Mg Tablet) 5 mg PO DAILY@1730 [facility] Last Admin: 09/21/24 17:08 Dose: 5 mg Benzocaine (Throat Lozenge, Medicated Lozenge) 1 lozenge MUCOUS MEM Q2H PRN PRN Reason: Sore Throat Clozapine 100 mg/ Clozapine 50 (mg) 150 mg PO DAILY@2000 [facility] Last Admin: 09/21/24 20:19 Dose: 150 mg Divalproex Sodium (Divalproex Sodium Sprinkles 125 Mg Cap..Spr) 500 mg PO BEDTIME [facility] Last Admin: 09/21/24 20:19 Dose: 500 mg Ferrous Sulfate (Ferrous Sulfate 324 Mg Tablet.) 324 mg PO DAILY [facility] Last Admin: 09/22/24 08:22 Dose: 324 mg Finasteride (Finasteride 5 Mg Tablet) 5 mg PO DAILY [facility] Last Admin: 09/22/24 08:22 Dose: 5 mg Magnesium Hydroxide (Milk Of Magnesia 30 Ml Oral.Susp) 30 ml PO DAILY PRN PRN Reason: Constipation Last Admin: 09/17/24 15:15 Dose: 30 ml Mirtazapine (Mirtazapine 7.5 Mg Tablet) 7.5 mg PO BEDTIME [facility] Last Admin: 09/21/24 20:19 Dose: 7.5 mg Olanzapine (Olanzapine Odt 10 Mg Tab.Rapdis) 5 mg TRANSLINGU BID PRN PRN Reason: agitation Last Admin: 08/24/24 20:56 Dose: 5 mg Pramipexole Dihydrochloride (Pramipexole Di-Hcl 0.25 Mg Tablet) 0.5 mg PO TID [facility] Last Admin: 09/22/24 14:12 Dose: 0.5 mg Sertraline HCl (Sertraline Hcl 50 Mg Tablet) 50 mg PO DAILY [facility] Last Admin: 09/22/24 08:22 Dose: 50 mg Sodium Chloride (0.9 % Sodium Chloride Flush 10 Ml Syringe) [facility] Last Admin: 09/22/24 08:22 Dose: 10 ml Tamsulosin HCl (Tamsulosin Hcl 0.4 Mg Capsule) 0.8 mg PO BEDTIME [facility] Last Admin: 09/21/24 20:20 Dose: 0.8 mg Thiamine HCl (Thiamine Hcl 100 Mg Tablet) 100 mg PO DAILY KRISTIN Last Admin: 09/22/24 08:22 Dose: 100 mg Allergies Allergies Allergy/AdvReac Type Severity Reaction Status Date / Time No Known Allergies (NKA) Allergy Unknown NONE Verified 06/19/24 20:43 Assessment & Plan Assessment & Plan (1) Schizoaffective disorder: Status: Acute Code(s): F25.9 - Schizoaffective disorder, unspecified (2) Catatonia: Status: Acute Code(s): F06.1 - Catatonic disorder due to known physiological condition Plan Nonocclusive thrombus left cephalic vein Discuss case with Aldo who recommended 4 weeks of Eliquis which is ordered Elevate extremity Midline to be removed-we will defer decision to reinsert midline for ketamine treatments to psychiatry team. 09/10/2024 Ketamine scheduled for 2 days from today midline to be placed Eliquis ordered case for cephalic vein thrombosis being managed by hospitalist service 09/11/2024 Patient showing gradual improvement ketamine scheduled for tomorrow reinsertion of midline more alert improved engagement no hallucinations delusional material or aggression noted today still flat needs cuing aware of discharge planning ketamine scheduled for the morning continue clozapine sertraline Abilify per catatonia protocol 09/12/2024 Continue clozapine sertraline Abilify improvement noted discharge planning meeting scheduled 08/2024 Continue plan of care no change indicated [id number] time discharge planning meeting shortly has responded to weekly ketamine 09/14: Continue current regimen and plans 09/15: Continue current regimen and plans 09/16/24 Continue clozapine scheduled another ketamine treatment for this week discussed discharge planning and transition 09/19/2024 Patient tolerated ketamine well no less restrictive setting available. If unable to get ketamine outpatient will taper and discontinue patient with significant cognitive changes status post catatonia and ICU admission question etiology TSH B12 folate unremarkable 09/21 continue tx. 09/22 continue tx Reason for continued inpatient stay Substantial Risk for: inability to function Time Spent With Patient Time: Total time managing care of this patient today ____ minutes.
[2024-09-22 16:30] LABS: Neut%MD 75.9 %; WBCANC 8.9 X10*3/uL
[2024-09-22 20:00] VITALS: BP 114/53; PULSE 82; RESP 16; TEMP 36.4; O2SAT 97
[2024-09-22] MEDS: Divalproex Sodium Sprinkles 125 MG CAP.DR.SPR 500 MG PO (20:11)
[2024-09-23 08:00] VITALS: BP 123/62; PULSE 86; RESP 16; TEMP 36.5; O2SAT 97
[2024-09-23] MEDS: Ferrous Sulfate 324 MG TABLET.DR PO (08:42)
[2024-09-23] MEDS: 0.9 % Sodium Chloride Flush 10 ML SYRINGE IVFLUSH ×3 (08:43→23:00)
[2024-09-23 20:00] VITALS: BP 97/62; PULSE 78; RESP 18; TEMP 36.3; O2SAT 95
[2024-09-23] MEDS: Divalproex Sodium Sprinkles 125 MG CAP.DR.SPR 500 MG PO (20:45)
--- NOTE | 2024-09-23 23:01 | HO.PSYCHPN ---
Subjective Subjective Date of Service: 09/23/24 Reason For Visit: catatonia Subjective Notes: Conditional Voluntary Healthcare Proxy: Yes Interim History: Pt seen in psych follow up mood improved agreeable to ketamine tx then will try and d/c patient denies current auditory hallucinations needs cuing periods of isolation and withdrawal Medication Compliance: Yes Mental Status Exam Mental Status Exam Narrative: Alert, oriented to place, month, year. No overt psychosis or delusional content denies auditory hallucination . Some degree of thought blocking continues , poverty of content. affect constricted flat No SI/HI. No aggression towards self or others. Improved impulse control insight somewhat limited Diagnostics Vital Signs (24Hr): Vital Signs - 24 hr 09/23/24 08:00 09/23/24 20:00 Temperature 97.7 F 97.4 F Pulse Rate 86 78 Respiratory Rate 16 18 Blood Pressure 123/62 97/62 Pulse Oximetry 97 95 Oxygen Delivery Method Room Air Room Air BMI result Body Mass Index 28.8 Labs 09/17/24 10:47 09/10/24 07:44 Labs: Laboratory Results - last 48 hr 09/22/24 15:32 Absolute Neuts (auto) 6.8 Imaging Radiology Impressions: ITS Impressions Venous Duplex 09/09/24 14:33 IMPRESSION: Nonocclusive thrombus, left cephalic vein. Electronically signed by: Mayank Irwin MD 09/09/2024 03:31 PM EDT Medications Medications Current Medications Acetaminophen (Acetaminophen 325 Mg Tablet) 650 mg PO Q6H PRN PRN Reason: Headache/Pain, Scale 1-10 Last Admin: 09/06/24 02:01 Dose: 650 mg Al Hydroxide/Mg Hydroxide (Magnesium Hydrox/Alum Hydrox 30 Ml Oral.Susp) 30 ml PO Q6H PRN PRN Reason: Heartburn/Nausea Last Admin: 08/17/24 21:50 Dose: 30 ml Albuterol/Ipratropium (Albuterol/Iprat 2.5/0.5mg 3 Ml Ampul.Neb) 3 ml INHALE QID PRN PRN Reason: wheezing Apixaban (Apixaban 5 Mg Tablet) 5 mg PO BID KRISTIN Stop: 10/08/24 08:59 Last Admin: 09/23/24 20:46 Dose: 5 mg Aripiprazole (Aripiprazole 5 Mg Tablet) 5 mg PO DAILY@1730 [facility] Last Admin: 09/23/24 16:57 Dose: 5 mg Benzocaine (Throat Lozenge, Medicated Lozenge) 1 lozenge MUCOUS MEM Q2H PRN PRN Reason: Sore Throat Clozapine 100 mg/ Clozapine 50 (mg) 150 mg PO DAILY@2000 [facility] Last Admin: 09/23/24 20:45 Dose: 150 mg Divalproex Sodium (Divalproex Sodium Sprinkles 125 Mg Cap.Dr.Spr) 500 mg PO BEDTIME [facility] Last Admin: 09/23/24 20:45 Dose: 500 mg Ferrous Sulfate (Ferrous Sulfate 324 Mg Tablet.Dr) 324 mg PO DAILY [facility] Last Admin: 09/23/24 08:42 Dose: 324 mg Finasteride (Finasteride 5 Mg Tablet) 5 mg PO DAILY [facility] Last Admin: 09/23/24 08:43 Dose: 5 mg Magnesium Hydroxide (Milk Of Magnesia 30 Ml Oral.Susp) 30 ml PO DAILY PRN PRN Reason: Constipation Last Admin: 09/17/24 15:15 Dose: 30 ml Mirtazapine (Mirtazapine 7.5 Mg Tablet) 7.5 mg PO BEDTIME [facility] Last Admin: 09/23/24 20:46 Dose: 7.5 mg Olanzapine (Olanzapine Odt 10 Mg Tab.Rapdis) 5 mg TRANSLINGU BID PRN PRN Reason: agitation Last Admin: 08/24/24 20:56 Dose: 5 mg Pramipexole Dihydrochloride (Pramipexole Di-Hcl 0.25 Mg Tablet) 0.5 mg PO TID [facility] Last Admin: 09/23/24 20:45 Dose: 0.5 mg Sertraline HCl (Sertraline Hcl 50 Mg Tablet) 50 mg PO DAILY [facility] Last Admin: 09/23/24 08:43 Dose: 50 mg Sodium Chloride (0.9 % Sodium Chloride Flush 10 Ml Syringe) 10 ml IVFLUSH QSHIFT [facility] Last Admin: 09/23/24 16:57 Dose: 10 ml Tamsulosin HCl (Tamsulosin Hcl 0.4 Mg Capsule) 0.8 mg PO BEDTIME [facility] Last Admin: 09/23/24 20:46 Dose: 0.8 mg Thiamine HCl (Thiamine Hcl 100 Mg Tablet) 100 mg PO DAILY [facility] Last Admin: 09/23/24 08:43 Dose: 100 mg Allergies Allergies Allergy/AdvReac Type Severity Reaction Status Date / Time No Known Allergies (NKA) Allergy Unknown NONE Verified 06/19/24 20:43 Assessment & Plan Assessment & Plan (1) Schizoaffective disorder: Status: Acute Code(s): F25.9 - Schizoaffective disorder, unspecified (2) Catatonia: Status: Acute Code(s): F06.1 - Catatonic disorder due to known physiological condition Plan Nonocclusive thrombus left cephalic vein Discuss case with Aldo who recommended 4 weeks of Eliquis which is ordered Elevate extremity Midline to be removed-we will defer decision to reinsert midline for ketamine treatments to psychiatry team. 09/10/2024 Ketamine scheduled for 2 days from today midline to be placed Eliquis ordered case for cephalic vein thrombosis being managed by hospitalist service 09/11/2024 Patient showing gradual improvement ketamine scheduled for tomorrow reinsertion of midline more alert improved engagement no hallucinations delusional material or aggression noted today still flat needs cuing aware of discharge planning ketamine scheduled for the morning continue clozapine sertraline Abilify per catatonia protocol 09/12/2024 Continue clozapine sertraline Abilify improvement noted discharge planning meeting scheduled 08/2024 Continue plan of care no change indicated [id number] time discharge planning meeting shortly has responded to weekly ketamine 09/14: Continue current regimen and plans 09/15: Continue current regimen and plans 09/16/24 Continue clozapine scheduled another ketamine treatment for this week discussed discharge planning and transition 09/19/2024 Patient tolerated ketamine well no less restrictive setting available. If unable to get ketamine outpatient will taper and discontinue patient with significant cognitive changes status post catatonia and ICU admission question etiology TSH B12 folate unremarkable 09/21 continue tx. 09/22 continue tx 09/23/2024 Continue ketamine treatment this week will then try and discontinue since not clear if can be continued as an outpatient. Check Depakote and ammonia level will try and keep Depakote on the lower side patient not manic will try to avoid over-sedation. Mirtazapine 15 mg increase per catatonia protocol continue dopamine agonist increase sertraline to 75 mg. Check repeat swallowing at bedside see if diet can be increased Reason for continued inpatient stay Substantial Risk for: inability to function, rapid decompensation and med/psych decompensation Time Spent With Patient Time: Total time managing care of this patient today ____ minutes.
[2024-09-24 08:00] VITALS: BP 114/62; PULSE 91; RESP 19; TEMP 36.4; O2SAT 98
[2024-09-24] MEDS: Ferrous Sulfate 324 MG TABLET.DR PO (08:36)
[2024-09-24] MEDS: 0.9 % Sodium Chloride Flush 10 ML SYRINGE IVFLUSH ×3 (08:36→20:25)
[2024-09-24 10:45] LABS: Neut%MD 66.7 %; WBCANC 6.8 X10*3/uL
[2024-09-24 10:53] LABS: Ammonia 36 umol/L (13-55)
--- NOTE | 2024-09-24 15:02 | MHC.SLORD ---
Speech Language Pathology Order Status: [employer]ING [employer]SEL[employer] order received w/ goal to advance diet. Pt has been stable on ground solids and thin liquids. Pt declined clinical swallow evaluation at bedside w/ FUNERAL PLANNING COUNSELOR. He expressed that he doesn't mind ground solids and declined to participate in evaluation. Pt agreeable that FUNERAL PLANNING COUNSELOR would come back and check in tomorrow and attempt to do evaluation.
[2024-09-24 20:00] VITALS: BP 134/64; PULSE 87; RESP 17; TEMP 36.1; O2SAT 99
[2024-09-24] MEDS: Divalproex Sodium Sprinkles 125 MG CAP.DR.SPR 500 MG PO (20:07)
[2024-09-24] MEDS: OLANZapine ODT 10 MG TAB.RAPDIS 5 MG TRANSLINGU (20:10)
--- NOTE | 2024-09-24 21:37 | HO.PSYCHPN ---
Subjective Subjective Date of Service: 09/24/24 Reason For Visit: catatonia Subjective Notes: Conditional Voluntary Healthcare Proxy: Yes Medical Problems Affecting Mental Status: Yes Diagnostics Vital Signs (24Hr): Vital Signs - 24 hr 09/24/24 08:00 09/24/24 20:00 Temperature 97.5 F 96.9 F Pulse Rate 91 87 Respiratory Rate 19 17 Blood Pressure 114/62 134/64 Pulse Oximetry 98 99 Oxygen Delivery Method Room Air Room Air BMI result Body Mass Index 28.8 Labs 09/17/24 10:47 09/10/24 07:44 Labs: Laboratory Results - last 48 hr 09/24/24 09/24/24 10:38 10:38 Absolute Neuts (auto) 4.5 Ammonia 36 Valproic Acid 20.5 L 19.7 L Imaging Radiology Impressions: ITS Impressions Venous Duplex 09/09/24 14:33 IMPRESSION: Nonocclusive thrombus, left cephalic vein. Electronically signed by: Mayank Irwin MD 09/09/2024 03:31 PM EDT Medications Medications Current Medications Acetaminophen (Acetaminophen 325 Mg Tablet) 650 mg PO Q6H PRN PRN Reason: Headache/Pain, Scale 1-10 Last Admin: 09/06/24 02:01 Dose: 650 mg Al Hydroxide/Mg Hydroxide (Magnesium Hydrox/Alum Hydrox 30 Ml Oral.Susp) 30 ml PO Q6H PRN PRN Reason: Heartburn/Nausea Last Admin: 08/17/24 21:50 Dose: 30 ml Albuterol/Ipratropium (Albuterol/Iprat 2.5/0.5mg 3 Ml Ampul.Neb) 3 ml INHALE QID PRN PRN Reason: wheezing Apixaban (Apixaban 5 Mg Tablet) 5 mg PO BID [facility] Stop: 10/08/24 08:59 Last Admin: 09/24/24 20:10 Dose: 5 mg Aripiprazole (Aripiprazole 5 Mg Tablet) 5 mg PO DAILY@1730 [facility] Last Admin: 09/24/24 18:20 Dose: 5 mg Benzocaine (Throat Lozenge, Medicated Lozenge) 1 lozenge MUCOUS MEM Q2H PRN PRN Reason: Sore Throat Clozapine 100 mg/ Clozapine 50 (mg) 150 mg PO DAILY@1999 [facility] Last Admin: 09/24/24 20:09 Dose: 150 mg Divalproex Sodium (Divalproex Sodium Sprinkles 125 Mg Cap..Sunil) 500 mg PO BEDTIME [facility] Last Admin: 09/24/24 20:07 Dose: 500 mg Ferrous Sulfate (Ferrous Sulfate 324 Mg Tablet.Dr) 324 mg PO DAILY [facility] Last Admin: 09/24/24 08:36 Dose: 324 mg Finasteride (Finasteride 5 Mg Tablet) 5 mg PO DAILY [facility] Last Admin: 09/24/24 08:35 Dose: 5 mg Magnesium Hydroxide (Milk Of Magnesia 30 Ml Oral.Susp) 30 ml PO DAILY PRN PRN Reason: Constipation Last Admin: 09/17/24 15:15 Dose: 30 ml Mirtazapine (Mirtazapine 15 Mg Tablet) 15 mg PO BEDTIME [facility] Last Admin: 09/24/24 20:08 Dose: 15 mg Olanzapine (Olanzapine Odt 10 Mg Tab.Rapdis) 5 mg TRANSLINGU BID PRN PRN Reason: agitation Last Admin: 09/24/24 20:10 Dose: 5 mg Pramipexole Dihydrochloride (Pramipexole Di-Hcl 0.25 Mg Tablet) 0.5 mg PO TID [facility] Last Admin: 09/24/24 20:08 Dose: 0.5 mg Sertraline HCl (Sertraline Hcl 25 Mg Tablet) 75 mg PO DAILY [facility] Sodium Chloride (0.9 % Sodium Chloride Flush 10 Ml Syringe) 10 ml IVFLUSH QSHIFT [facility] Last Admin: 09/24/24 20:25 Dose: 10 ml Tamsulosin HCl (Tamsulosin Hcl 0.4 Mg Capsule) 0.8 mg PO BEDTIME [facility] Last Admin: 09/24/24 20:08 Dose: 0.8 mg Thiamine HCl (Thiamine Hcl 100 Mg Tablet) 100 mg PO DAILY [facility] Last Admin: 09/24/24 08:36 Dose: 100 mg Allergies Allergies Allergy/AdvReac Type Severity Reaction Status Date / Time No Known Allergies (NKA) Allergy Unknown NONE Verified 06/19/24 20:43 Assessment & Plan Assessment & Plan (1) Schizoaffective disorder: Status: Acute Code(s): F25.9 - Schizoaffective disorder, unspecified (2) Catatonia: Status: Acute Code(s): F06.1 - Catatonic disorder due to known physiological condition Plan Nonocclusive thrombus left cephalic vein Discuss case with Aldo who recommended 4 weeks of Eliquis which is ordered Elevate extremity Midline to be removed-we will defer decision to reinsert midline for ketamine treatments to psychiatry team. 09/10/2024 Ketamine scheduled for 2 days from today midline to be placed Eliquis ordered case for cephalic vein thrombosis being managed by hospitalist service 09/11/2024 Patient showing gradual improvement ketamine scheduled for tomorrow reinsertion of midline more alert improved engagement no hallucinations delusional material or aggression noted today still flat needs cuing aware of discharge planning ketamine scheduled for the morning continue clozapine sertraline Abilify per catatonia protocol 09/12/2024 Continue clozapine sertraline Abilify improvement noted discharge planning meeting scheduled 08/2024 Continue plan of care no change indicated [id number] time discharge planning meeting shortly has responded to weekly ketamine 09/14: Continue current regimen and plans 09/15: Continue current regimen and plans 09/16/24 Continue clozapine scheduled another ketamine treatment for this week discussed discharge planning and transition 09/19/2024 Patient tolerated ketamine well no less restrictive setting available. If unable to get ketamine outpatient will taper and discontinue patient with significant cognitive changes status post catatonia and ICU admission question etiology TSH B12 folate unremarkable 09/21 continue tx. 09/22 continue tx 09/23/2024 Continue ketamine treatment this week will then try and discontinue since not clear if can be continued as an outpatient. Check Depakote and ammonia level will try and keep Depakote on the lower side patient not manic will try to avoid over-sedation. Mirtazapine 15 mg increase per catatonia protocol continue dopamine agonist increase sertraline to 75 mg. Check repeat swallowing at bedside see if diet can be increased 09/24/2024 Continue plan of care monitor response to mirtazapine 15 sertraline 75 mg ketamine scheduled for 09/26/2024 Reason for continued inpatient stay Substantial Risk for: inability to function, rapid decompensation and med/psych decompensation Time Spent With Patient Time: Total time managing care of this patient today ____ minutes.
[2024-09-25 08:51] VITALS: BP 116/59; PULSE 84; RESP 16; TEMP 35.9; O2SAT 97
[2024-09-25] MEDS: Ferrous Sulfate 324 MG TABLET.DR PO (08:54)
[2024-09-25] MEDS: 0.9 % Sodium Chloride Flush 10 ML SYRINGE IVFLUSH ×3 (08:58→23:15)
--- NOTE | 2024-09-25 11:16 | MHC.SL.SWA ---
Speech Pathologist Impression: Mild persistent dysphagia d/t behavioral and physiological factors (i.e. eating too fast, getting distracted, missing a few dentition, hx of intubations in previous months) Risk of Aspiration Due to: Forgetfulness Impulsivity Hx of significant dysphagia Dysphasia Diet Status: Upgrade to REGULAR diet with THIN liquid consistencies Liquid Consistency and Strategies for Safe Swallow: Liquid Intake Recommendation: Thin Liquid Intake Strategies: Solid Food Consistency: Dietary Recommendations: Regular Additional Modifications to Solid Foods: Oral Medication Intake: Whole with Liquid Please contact the pharmacy regarding appropriate crushable or liquid drug formulations that are available whenever modified delivery is recommended. Compensatory Strategies and Precautions to be Taken for Safe Swallow: Supervision While Eating and Drinking for Safe Swallow: Intermittent Supervision Foods to Avoid: Mixed consistencies Swallowing Recommended Treatments: Recommendation for Speech: Outpatient Speech Therapy Speech Therapy through [facility] Comment: Pt seen for repeat clinical swallow evaluation 09/25/24. Pt was on NDD2 with thins, ready for advance as status has improved. Oropharyngeal phases of swallowing WNL. Pt provided with education and review of safety recommendations. Pt endorsed that he 'eats too fast' and is 'distracted easy'. Recc skilled ST upon d/c for management of mild dysphagia and pharyngeal strengthening exercises. Frequency/Duration: Date Range for Service Req: Timeline to reassess: Photographic Laboratory Supervisor Clinican/Clinical Fellow: No Supervisory Statement: I have reviewed and agree with the student/clinical fellow's documentation: N/A Speech Language Pathologist: Francia Pink M.S., CCC-AGRICULTURAL EXTENSION AGENT
--- NOTE | 2024-09-25 13:21 | P.PNPSI_ITS ---
Subjective Subjective Date of Service: 09/25/24 Reason For Visit: catatonia Subjective Notes: Conditional Voluntary Healthcare Proxy: Yes Interim History: pt scheduled for ketamine in am remains improved still with pov of content Medication Compliance: Yes Mental Status Exam Mental Status Exam Narrative: Alert, oriented to place, month, year. No overt psychosis or delusional content denies auditory hallucination . Some degree of thought blocking continues , poverty of content. affect orozco can smile No SI/HI. No aggression towards self or others. Improved impulse control insight improving Diagnostics Vital Signs (24Hr): Vital Signs - 24 hr 09/24/24 20:00 09/25/24 08:51 Temperature 96.9 F 96.7 F L Pulse Rate 87 84 Respiratory Rate 17 16 Blood Pressure 134/64 116/59 L Pulse Oximetry 99 97 Oxygen Delivery Method Room Air Room Air BMI result Body Mass Index 28.8 Labs 09/29/24 11:23 09/10/24 07:44 Labs: Laboratory Results - last 48 hr 09/24/24 09/24/24 10:38 10:38 Absolute Neuts (auto) 4.5 Ammonia 36 Valproic Acid 20.5 L 19.7 L Imaging Radiology Impressions: ITS Impressions Venous Duplex 09/09/24 14:33 IMPRESSION: Nonocclusive thrombus, left cephalic vein. Electronically signed by: Mayank Irwin MD 09/09/2024 03:31 PM EDT Medications Medications Current Medications Acetaminophen (Acetaminophen 325 Mg Tablet) 650 mg PO Q6H PRN PRN Reason: Headache/Pain, Scale 1-10 Last Admin: 09/06/24 02:01 Dose: 650 mg Al Hydroxide/Mg Hydroxide (Magnesium Hydrox/Alum Hydrox 30 Ml Oral.Susp) 30 ml PO Q6H PRN PRN Reason: Heartburn/Nausea Last Admin: 08/17/24 21:50 Dose: 30 ml Albuterol/Ipratropium (Albuterol/Iprat 2.5/0.5mg 3 Ml Ampul.Neb) 3 ml INHALE QID PRN PRN Reason: wheezing Apixaban (Apixaban 5 Mg Tablet) 5 mg PO BID [facility] Stop: 10/08/24 08:59 Last Admin: 09/25/24 08:55 Dose: 5 mg Aripiprazole (Aripiprazole 5 Mg Tablet) 5 mg PO DAILY@1730 [facility] Last Admin: 09/24/24 18:20 Dose: 5 mg Benzocaine (Throat Lozenge, Medicated Lozenge) 1 lozenge MUCOUS MEM Q2H PRN PRN Reason: Sore Throat Clozapine 100 mg/ Clozapine 50 (mg) 150 mg PO DAILY@1999 [facility] Last Admin: 09/24/24 20:09 Dose: 150 mg Divalproex Sodium (Divalproex Sodium Sprinkles 125 Mg Cap.) 500 mg PO DAILY@1999 [facility] Ferrous Sulfate (Ferrous Sulfate 324 Mg Tablet.Dr) 324 mg PO DAILY [facility] Last Admin: 09/25/24 08:54 Dose: 324 mg Finasteride (Finasteride 5 Mg Tablet) 5 mg PO DAILY [facility] Last Admin: 09/25/24 08:57 Dose: 5 mg Ketamine HCl 500 mg/ Sodium (Chloride) 255 mls @ 22.568 mls/hr IV .[id number] [facility]; Protocol Magnesium Hydroxide (Milk Of Magnesia 30 Ml Oral.Susp) 30 ml PO DAILY PRN PRN Reason: Constipation Last Admin: 09/17/24 15:15 Dose: 30 ml Mirtazapine (Mirtazapine 15 Mg Tablet) 15 mg PO BEDTIME [facility] Last Admin: 09/24/24 20:08 Dose: 15 mg Olanzapine (Olanzapine Odt 10 Mg Tab.Rapdis) 5 mg TRANSLINGU BID PRN PRN Reason: agitation Last Admin: 09/24/24 20:10 Dose: 5 mg Pramipexole Dihydrochloride (Pramipexole Di-Hcl 0.25 Mg Tablet) 0.5 mg PO TID [facility] Last Admin: 09/25/24 08:55 Dose: 0.5 mg Sertraline HCl (Sertraline Hcl 25 Mg Tablet) 75 mg PO DAILY [facility] Last Admin: 09/25/24 08:53 Dose: 75 mg Sodium Chloride (0.9 % Sodium Chloride Flush 10 Ml Syringe) 10 ml IVFLUSH QSHIFT [facility] Last Admin: 09/25/24 08:58 Dose: 10 ml Tamsulosin HCl (Tamsulosin Hcl 0.4 Mg Capsule) 0.8 mg PO BEDTIME [facility] Last Admin: 09/24/24 20:08 Dose: 0.8 mg Thiamine HCl (Thiamine Hcl 100 Mg Tablet) 100 mg PO DAILY [facility] Last Admin: 09/25/24 08:55 Dose: 100 mg Allergies Allergies Allergy/AdvReac Type Severity Reaction Status Date / Time No Known Allergies (NKA) Allergy Unknown NONE Verified 06/19/24 20:43 Assessment & Plan Assessment & Plan (1) Schizoaffective disorder: Status: Acute Code(s): F25.9 - Schizoaffective disorder, unspecified (2) Catatonia: Status: Acute Code(s): F06.1 - Catatonic disorder due to known physiological condition Plan Nonocclusive thrombus left cephalic vein Discuss case with Aldo who recommended 4 weeks of Eliquis which is ordered Elevate extremity Midline to be removed-we will defer decision to reinsert midline for ketamine treatments to psychiatry team. 09/10/2024 Ketamine scheduled for 2 days from today midline to be placed Eliquis ordered case for cephalic vein thrombosis being managed by hospitalist service 09/11/2024 Patient showing gradual improvement ketamine scheduled for tomorrow reinsertion of midline more alert improved engagement no hallucinations delusional material or aggression noted today still flat needs cuing aware of discharge planning ketamine scheduled for the morning continue clozapine sertraline Abilify per catatonia protocol 09/12/2024 Continue clozapine sertraline Abilify improvement noted discharge planning meeting scheduled 08/2024 Continue plan of care no change indicated [id number] time discharge planning meeting shortly has responded to weekly ketamine 09/14: Continue current regimen and plans 09/15: Continue current regimen and plans 09/16/24 Continue clozapine scheduled another ketamine treatment for this week discussed discharge planning and transition 09/19/2024 Patient tolerated ketamine well no less restrictive setting available. If unable to get ketamine outpatient will taper and discontinue patient with significant cognitive changes status post catatonia and ICU admission question etiology TSH B12 folate unremarkable 09/21 continue tx. 09/22 continue tx 09/23/2024 Continue ketamine treatment this week will then try and discontinue since not clear if can be continued as an outpatient. Check Depakote and ammonia level will try and keep Depakote on the lower side patient not manic will try to avoid over-sedation. Mirtazapine 15 mg increase per catatonia protocol continue dopamine agonist increase sertraline to 75 mg. Check repeat swallowing at bedside see if diet can be increased 09/24/2024 Continue plan of care monitor response to mirtazapine 15 sertraline 75 mg ketamine scheduled for 09/26/2024 09/25/24 ketamine in am d/c planning Reason for continued inpatient stay Substantial Risk for: inability to function and rapid decompensation Time Spent With Patient Time: Total time managing care of this patient today ____ minutes.
[2024-09-25 20:00] VITALS: BP 128/69; PULSE 79; RESP 16; TEMP 36.6; O2SAT 96
[2024-09-25] MEDS: Divalproex Sodium Sprinkles 125 MG CAP.DR.SPR 500 MG PO (21:05)
[2024-09-26] VITALS (12 sets, daily range): BP systolic 108–138; BP diastolic 55–72; PULSE 77–94; RESP 12–19; TEMP 36.2–36.8; O2SAT 94–99; BMI 29.4
[2024-09-26] MEDS: Ketamine HCl 500 MG in 0.9 % Sodium Chloride 250 ML 22.57 MG IV (08:01)
--- NOTE | 2024-09-26 10:08 | MHC.SLORD ---
Speech Language Pathology Order Status: SCREWHEAD POLISHER noted to have recommended advancement of diet back to REGULAR with THIN liquids on 09/25/24, however diet unchanged in [facility] on this writing (09/26/24). This SCREWHEAD POLISHER advanced diet in [facility], will attempt to observe toleration at lunch today.
[2024-09-26] MEDS: Ferrous Sulfate 324 MG TABLET.DR PO (10:22)
--- NOTE | 2024-09-26 13:07 | MHC.SL.SWA ---
Speech Pathologist Impression: Risk of Aspiration Due to: Dysphasia Diet Status: Recommend continue on REGULAR diet with THIN liquids, pills whole in puree or with liquid. RESCUE WORKER will observe again tomorrow for toleration on corrected diet. Liquid Consistency and Strategies for Safe Swallow: Liquid Intake Recommendation: Thin Liquid Intake Strategies: Small Sips Solid Food Consistency: Dietary Recommendations: Regular Additional Modifications to Solid Foods: Patient has history of impulsivity with food, may over stuff mouth. Periodic supervision with cuing to slow rate is recommended if behavior is noted. Oral Medication Intake: Whole with Liquid Please contact the pharmacy regarding appropriate crushable or liquid drug formulations that are available whenever modified delivery is recommended. Compensatory Strategies and Precautions to be Taken for Safe Swallow: Sitting Upright (90 deg) Small Bites and Sips Alternate Liquids/Solids Rate of Ingestion Change Oral Check Supervision While Eating and Drinking for Safe Swallow: Intermittent Supervision Foods to Avoid: Mixed consistencies Swallowing Recommended Treatments: Recommendation for Speech: Comment: Patient seen at lunch, however tray that arrived was Chopped/Advanced consistency, however it did have items more consistent with an expected regular (e.g. sliced carrots that were al dente hard, a pie/crumble dessert, cubes of harder textured chicken/turkey). Patient was attempting to eat the carrots of tray, which was challenging due to their toughness and his ability to spear with a plastic fork. However, patient was observed able to chew/masticate this consistency adequately once able to manage with cutlery. It was noted that at one point, patient took a sip of liquid with food still partially masticated and in mouth, however no choking coughing was noted when managing these mixed consistencies. Recommend continue on REGULAR diet with THIN liquids, pills whole in puree or with liquid. RESCUE WORKER will observe again tomorrow for toleration on corrected diet. Frequency/Duration: Date Range for Service Req: Timeline to reassess: Concrete Sculptor Clinican/Clinical Fellow: No Supervisory Statement: I have reviewed and agree with the student/clinical fellow's documentation: N/A Speech Language Pathologist: Vicki Jane M.A., [facility]-RESCUE WORKER
--- NOTE | 2024-09-26 13:56 | HO.PSYCHPN ---
Subjective Subjective Date of Service: 09/26/24 Reason For Visit: catatonia Subjective Notes: Conditional Voluntary Interim History: pt seen case reviewed with w k[facility] ketamine ctr pt with orozco affect Pts mood improved still limited cognitively has potential d/c plan with grp support Tolerated ketamine tx today with good effect Medication Compliance: Yes Diagnostics Vital Signs (24Hr): Vital Signs - 24 hr 09/25/24 20:00 09/26/24 07:44 09/26/24 08:09 Temperature 97.9 F 97.9 F Pulse Rate 79 94 89 Respiratory Rate 16 18 17 Blood Pressure 128/69 121/61 112/55 L Pulse Oximetry 96 96 97 Oxygen Delivery Method Room Air Room Air Room Air 09/26/24 08:24 09/26/24 08:39 09/26/24 08:54 Temperature Pulse Rate 80 79 78 Respiratory Rate 18 19 18 Blood Pressure 122/67 130/61 118/67 Pulse Oximetry 97 97 97 Oxygen Delivery Method Room Air Room Air Room Air 09/26/24 09:09 09/26/24 09:24 09/26/24 09:39 Temperature Pulse Rate 82 81 79 Respiratory Rate 16 18 17 Blood Pressure 108/72 120/60 114/55 L Pulse Oximetry 97 97 98 Oxygen Delivery Method Room Air Room Air Room Air 09/26/24 09:54 09/26/24 10:08 09/26/24 10:20 Temperature 97.3 F 97.1 F Pulse Rate 77 77 88 Respiratory Rate 12 18 Blood Pressure 113/59 L 120/55 L 138/68 Pulse Oximetry 99 99 97 Oxygen Delivery Method Room Air Room Air Room Air BMI result Body Mass Index 28.8 Labs 09/29/24 11:23 09/10/24 07:44 Imaging Radiology Impressions: ITS Impressions Venous Duplex 09/09/24 14:33 IMPRESSION: Nonocclusive thrombus, left cephalic vein. Electronically signed by: Mayank Irwin MD 09/09/2024 03:31 PM EDT Medications Medications Current Medications Acetaminophen (Acetaminophen 325 Mg Tablet) 650 mg PO Q6H PRN PRN Reason: Headache/Pain, Scale 1-10 Last Admin: 09/06/24 02:01 Dose: 650 mg Al Hydroxide/Mg Hydroxide (Magnesium Hydrox/Alum Hydrox 30 Ml Oral.Susp) 30 ml PO Q6H PRN PRN Reason: Heartburn/Nausea Last Admin: 08/17/24 21:50 Dose: 30 ml Albuterol/Ipratropium (Albuterol/Iprat 2.5/0.5mg 3 Ml Ampul.Neb) 3 ml INHALE QID PRN PRN Reason: wheezing Apixaban (Apixaban 5 Mg Tablet) 5 mg PO BID [facility] Stop: 10/08/24 08:59 Last Admin: 09/26/24 10:22 Dose: 5 mg Aripiprazole (Aripiprazole 5 Mg Tablet) 5 mg PO DAILY@1729 [facility] Last Admin: 09/25/24 17:16 Dose: 5 mg Benzocaine (Throat Lozenge, Medicated Lozenge) 1 lozenge MUCOUS MEM Q2H PRN PRN Reason: Sore Throat Clozapine 100 mg/ Clozapine 50 (mg) 150 mg PO DAILY@1999 [facility] Last Admin: 09/25/24 21:05 Dose: 150 mg Divalproex Sodium (Divalproex Sodium Sprinkles 125 Mg Cap.Dr.Spr) 500 mg PO DAILY@1999 [facility] Last Admin: 09/25/24 21:05 Dose: 500 mg Ferrous Sulfate (Ferrous Sulfate 324 Mg Tablet.Dr) 324 mg PO DAILY [facility] Last Admin: 09/26/24 10:22 Dose: 324 mg Finasteride (Finasteride 5 Mg Tablet) 5 mg PO DAILY [facility] Last Admin: 09/26/24 10:22 Dose: 5 mg Magnesium Hydroxide (Milk Of Magnesia 30 Ml Oral.Susp) 30 ml PO DAILY PRN PRN Reason: Constipation Last Admin: 09/17/24 15:15 Dose: 30 ml Mirtazapine (Mirtazapine 15 Mg Tablet) 15 mg PO BEDTIME [facility] Last Admin: 09/25/24 21:06 Dose: 15 mg Olanzapine (Olanzapine Odt 10 Mg Tab.Rapdis) 5 mg TRANSLINGU BID PRN PRN Reason: agitation Last Admin: 09/24/24 20:10 Dose: 5 mg Pramipexole Dihydrochloride (Pramipexole Di-Hcl 0.25 Mg Tablet) 0.5 mg PO TID [facility] Last Admin: 09/26/24 10:23 Dose: 0.5 mg Sertraline HCl (Sertraline Hcl 25 Mg Tablet) 75 mg PO DAILY [facility] Last Admin: 09/26/24 10:22 Dose: 75 mg Sodium Chloride (0.9 % Sodium Chloride Flush 10 Ml Syringe) 10 ml IVFLUSH QSHIFT [facility] Last Admin: 09/26/24 10:22 Dose: Not Given Tamsulosin HCl (Tamsulosin Hcl 0.4 Mg Capsule) 0.8 mg PO BEDTIME [facility] Last Admin: 09/25/24 21:06 Dose: 0.8 mg Thiamine HCl (Thiamine Hcl 100 Mg Tablet) 100 mg PO DAILY [facility] Last Admin: 09/26/24 10:22 Dose: 100 mg Allergies Allergies Allergy/AdvReac Type Severity Reaction Status Date / Time No Known Allergies (NKA) Allergy Unknown NONE Verified 06/19/24 20:43 Assessment & Plan Assessment & Plan (1) Schizoaffective disorder: Status: Acute Code(s): F25.9 - Schizoaffective disorder, unspecified (2) Catatonia: Status: Acute Code(s): F06.1 - Catatonic disorder due to known physiological condition Plan Nonocclusive thrombus left cephalic vein Discuss case with Aldo who recommended 4 weeks of Eliquis which is ordered Elevate extremity Midline to be removed-we will defer decision to reinsert midline for ketamine treatments to psychiatry team. 09/10/2024 Ketamine scheduled for 2 days from today midline to be placed Eliquis ordered case for cephalic vein thrombosis being managed by hospitalist service 09/11/2024 Patient showing gradual improvement ketamine scheduled for tomorrow reinsertion of midline more alert improved engagement no hallucinations delusional material or aggression noted today still flat needs cuing aware of discharge planning ketamine scheduled for the morning continue clozapine sertraline Abilify per catatonia protocol 09/12/2024 Continue clozapine sertraline Abilify improvement noted discharge planning meeting scheduled 08/2024 Continue plan of care no change indicated [id number] time discharge planning meeting shortly has responded to weekly ketamine 09/14: Continue current regimen and plans 09/15: Continue current regimen and plans 09/16/24 Continue clozapine scheduled another ketamine treatment for this week discussed discharge planning and transition 09/19/2024 Patient tolerated ketamine well no less restrictive setting available. If unable to get ketamine outpatient will taper and discontinue patient with significant cognitive changes status post catatonia and ICU admission question etiology TSH B12 folate unremarkable 09/21 continue tx. 09/22 continue tx 09/23/2024 Continue ketamine treatment this week will then try and discontinue since not clear if can be continued as an outpatient. Check Depakote and ammonia level will try and keep Depakote on the lower side patient not manic will try to avoid over-sedation. Mirtazapine 15 mg increase per catatonia protocol continue dopamine agonist increase sertraline to 75 mg. Check repeat swallowing at bedside see if diet can be increased 09/24/2024 Continue plan of care monitor response to mirtazapine 15 sertraline 75 mg ketamine scheduled for 09/26/2024 09/26/24 Pt with good response to ketamine diet inc to nl improved swallowing urged to chew slow down when eating Patient educated on: medication risk/benefits and therapeutic strategies Informed Consent: further education needed Reason for continued inpatient stay Substantial Risk for: inability to function and rapid decompensation Time Spent With Patient Time: Total time managing care of this patient today ____ minutes.
[2024-09-26] MEDS: 0.9 % Sodium Chloride Flush 10 ML SYRINGE IVFLUSH ×2 (16:30→21:03)
[2024-09-26] MEDS: Divalproex Sodium Sprinkles 125 MG CAP.DR.SPR 500 MG PO (20:58)
[2024-09-27 07:55] VITALS: BP 130/77; PULSE 80; RESP 18; TEMP 36.3; O2SAT 98
[2024-09-27] MEDS: Ferrous Sulfate 324 MG TABLET.DR PO (07:58)
--- NOTE | 2024-09-27 08:13 | P.PNPSI_ITS ---
Subjective Subjective Date of Service: 09/27/24 Reason For Visit: catatonia Interim History: met with patient. Discussed with nursing. Nursing note that he is brighter in affect with ketamine treatment which she received last dose 09/26/2024. Short- term memory impaired. With press writer pleasant. Reports mood is okay. Is aware he is getting ketamine treatment but unsure why. Is isolative in room. Denied sleep disturbance. Denied medication concerns. Eating and drinking okay. established secondary parkinsonism noted impacting jaw, hands and right foot Medication Compliance: Yes Side effects from medications: No Attending Groups: No Review of Systems Acute medical concerns: No Review of Systems Review of Systems nothing acute Mental Status Exam Mental Status Exam Narrative: Alert, oriented to place, month, year , but also has very limited understanding of why he is in the hospital or treatment planning. Established secondary parkinsonism notice impacting jaw, both hands and right foot. No overt psychosis or delusional content denies auditory hallucination . Some degree of thought blocking continues , poverty of content. affect constricted flat, but has also been brighter as per nursing. No SI/HI. No aggression towards self or others. Diagnostics Vital Signs (24Hr): Vital Signs - 24 hr 09/26/24 08:24 09/26/24 08:39 09/26/24 08:54 Temperature Pulse Rate 80 79 78 Respiratory Rate 18 19 18 Blood Pressure 122/67 130/61 118/67 Pulse Oximetry 97 97 97 Oxygen Delivery Method Room Air Room Air Room Air 09/26/24 09:09 09/26/24 09:24 09/26/24 09:39 Temperature Pulse Rate 82 81 79 Respiratory Rate 16 18 17 Blood Pressure 108/72 120/60 114/55 L Pulse Oximetry 97 97 98 Oxygen Delivery Method Room Air Room Air Room Air 09/26/24 09:54 09/26/24 10:08 09/26/24 10:20 Temperature 97.3 F 97.1 F Pulse Rate 77 77 88 Respiratory Rate 12 18 Blood Pressure 113/59 L 120/55 L 138/68 Pulse Oximetry 99 99 97 Oxygen Delivery Method Room Air Room Air Room Air 09/26/24 20:00 09/27/24 07:55 Temperature 98.2 F 97.3 F Pulse Rate 85 80 Respiratory Rate 18 18 Blood Pressure 133/63 130/77 Pulse Oximetry 94 98 Oxygen Delivery Method Room Air BMI result Body Mass Index 29.4 Labs 06/24/25 10:47 09/10/24 07:44 Imaging Radiology Impressions: ITS Impressions Venous Duplex 09/09/24 14:33 IMPRESSION: Nonocclusive thrombus, left cephalic vein. Electronically signed by: Mayank Irwin MD 09/09/2024 03:31 PM EDT RP Medications Medications Current Medications Acetaminophen (Acetaminophen 325 Mg Tablet) 650 mg PO Q6H PRN PRN Reason: Headache/Pain, Scale 1-10 Last Admin: 09/06/24 02:01 Dose: 650 mg Al Hydroxide/Mg Hydroxide (Magnesium Hydrox/Alum Hydrox 30 Ml Oral.Susp) 30 ml PO Q6H PRN PRN Reason: Heartburn/Nausea Last Admin: 08/17/24 21:50 Dose: 30 ml Albuterol/Ipratropium (Albuterol/Iprat 2.5/0.5mg 3 Ml Ampul.Neb) 3 ml INHALE QID PRN PRN Reason: wheezing Apixaban (Apixaban 5 Mg Tablet) 5 mg PO BID [facility] Stop: 10/08/24 08:59 Last Admin: 09/27/24 07:58 Dose: 5 mg Aripiprazole (Aripiprazole 5 Mg Tablet) 5 mg PO DAILY@1730 [facility] Last Admin: 09/26/24 16:29 Dose: 5 mg Benzocaine (Throat Lozenge, Medicated Lozenge) 1 lozenge MUCOUS MEM Q2H PRN PRN Reason: Sore Throat Clozapine 100 mg/ Clozapine 50 (mg) 150 mg PO DAILY@1999 [facility] Last Admin: 09/26/24 20:57 Dose: 150 mg Divalproex Sodium (Divalproex Sodium Sprinkles 125 Mg Cap.) 500 mg PO DAILY@1999 [facility] Last Admin: 09/26/24 20:58 Dose: 500 mg Ferrous Sulfate (Ferrous Sulfate 324 Mg Tablet.) 324 mg PO DAILY [facility] Last Admin: 09/27/24 07:58 Dose: 324 mg Finasteride (Finasteride 5 Mg Tablet) 5 mg PO DAILY [facility] Last Admin: 09/27/24 07:58 Dose: 5 mg Magnesium Hydroxide (Milk Of Magnesia 30 Ml Oral.Susp) 30 ml PO DAILY PRN PRN Reason: Constipation Last Admin: 09/17/24 15:15 Dose: 30 ml Mirtazapine (Mirtazapine 15 Mg Tablet) 15 mg PO BEDTIME [facility] Last Admin: 09/26/24 20:58 Dose: 15 mg Olanzapine (Olanzapine Odt 10 Mg Tab.Rapdis) 5 mg TRANSLINGU BID PRN PRN Reason: agitation Last Admin: 09/24/24 20:10 Dose: 5 mg Pramipexole Dihydrochloride (Pramipexole Di-Hcl 0.25 Mg Tablet) 0.5 mg PO TID [facility] Last Admin: 09/27/24 07:58 Dose: 0.5 mg Sertraline HCl (Sertraline Hcl 25 Mg Tablet) 75 mg PO DAILY [facility] Last Admin: 09/27/24 07:58 Dose: 75 mg Sodium Chloride (0.9 % Sodium Chloride Flush 10 Ml Syringe) 10 ml IVFLUSH QSHIFT [facility] Last Admin: 09/26/24 21:03 Dose: 10 ml Tamsulosin HCl (Tamsulosin Hcl 0.4 Mg Capsule) 0.8 mg PO BEDTIME [facility] Last Admin: 09/26/24 20:59 Dose: 0.8 mg Thiamine HCl (Thiamine Hcl 100 Mg Tablet) 100 mg PO DAILY [facility] Last Admin: 09/27/24 07:58 Dose: 100 mg Allergies Allergies Allergy/AdvReac Type Severity Reaction Status Date / Time No Known Allergies (NKA) Allergy Unknown NONE Verified 06/19/24 20:43 Assessment & Plan Assessment & Plan (1) Schizoaffective disorder: Status: Acute Code(s): F25.9 - Schizoaffective disorder, unspecified (2) Catatonia: Status: Acute Code(s): F06.1 - Catatonic disorder due to known physiological condition Plan Nonocclusive thrombus left cephalic vein Discuss case with Aldo who recommended 4 weeks of Eliquis which is ordered Elevate extremity Midline to be removed-we will defer decision to reinsert midline for ketamine treatments to psychiatry team. 09/10/2024 Ketamine scheduled for 2 days from today midline to be placed Eliquis ordered case for cephalic vein thrombosis being managed by hospitalist service 09/11/2024 Patient showing gradual improvement ketamine scheduled for tomorrow reinsertion of midline more alert improved engagement no hallucinations delusional material or aggression noted today still flat needs cuing aware of discharge planning ketamine scheduled for the morning continue clozapine sertraline Abilify per catatonia protocol 09/12/2024 Continue clozapine sertraline Abilify improvement noted discharge planning meeting scheduled 08/2024 Continue plan of care no change indicated [id number] time discharge planning meeting shortly has responded to weekly ketamine 09/14: Continue current regimen and plans 09/15: Continue current regimen and plans 09/16/24 Continue clozapine scheduled another ketamine treatment for this week discussed discharge planning and transition 09/19/2024 Patient tolerated ketamine well no less restrictive setting available. If unable to get ketamine outpatient will taper and discontinue patient with significant cognitive changes status post catatonia and ICU admission question etiology TSH B12 folate unremarkable 09/21 continue tx. 09/22 continue tx 09/23/2024 Continue ketamine treatment this week will then try and discontinue since not clear if can be continued as an outpatient. Check Depakote and ammonia level will try and keep Depakote on the lower side patient not manic will try to avoid over-sedation. Mirtazapine 15 mg increase per catatonia protocol continue dopamine agonist increase sertraline to 75 mg. Check repeat swallowing at bedside see if diet can be increased 09/24/2024 Continue plan of care monitor response to mirtazapine 15 sertraline 75 mg ketamine scheduled for 09/26/2024 09/27/2024: No changes to current plan i.e. maintain ketamine treatment Reason for continued inpatient stay Substantial Risk for: inability to function and rapid decompensation Time Spent With Patient Time: Total time managing care of this patient today ____ minutes.
[2024-09-27] MEDS: 0.9 % Sodium Chloride Flush 10 ML SYRINGE IVFLUSH ×3 (08:55→21:27)
--- NOTE | 2024-09-27 09:24 | MHC.CLN ---
NUTRITION DIET UPGRADED TO REGULAR CONSISTENCY. PO INTAKE AT MEALS APPEARS TO BE VERY GOOD. SUPPLEMENTS DISCONTINUED. RD TO FOLLOW NEEDED.
--- NOTE | 2024-09-27 13:02 | MHC.SL.SWA ---
Speech Pathologist Impression: Risk of Aspiration Due to: Dysphasia Diet Status: Recommend continue on REGULAR diet with THIN liquids, pills whole in puree or with liquid. WRITER EDITOR will observe again tomorrow for toleration on corrected diet. Liquid Consistency and Strategies for Safe Swallow: Liquid Intake Recommendation: Thin Liquid Intake Strategies: Small Sips Solid Food Consistency: Dietary Recommendations: Regular Additional Modifications to Solid Foods: Patient has history of impulsivity with food, may over stuff mouth. Periodic supervision with cuing to slow rate is recommended if behavior is noted. Oral Medication Intake: Whole with Liquid Please contact the pharmacy regarding appropriate crushable or liquid drug formulations that are available whenever modified delivery is recommended. Compensatory Strategies and Precautions to be Taken for Safe Swallow: Sitting Upright (90 deg) Small Bites and Sips Alternate Liquids/Solids Rate of Ingestion Change Oral Check Supervision While Eating and Drinking for Safe Swallow: Intermittent Supervision Foods to Avoid: Mixed consistencies Swallowing Recommended Treatments: Recommendation for Speech: Comment: Patient seen at lunch, with regular diet tray that included cubed chicken and sliced carrots (similar to yesterday) a simple salad, and also came with a sandwich and a number of other items (ice cream, another desert), e.g. ample food. Benjamin was steadily eating the chicken portion of the meal, having greater success today managing the meal with plastic utensils, and demonstrating no swallowing difficulty. Benjamin was curious why he was being watched again, but also then was readily engaged in some pleasant conversation, and when WRITER EDITOR began to leave he stated are you going so soon? Patient is tolerating regular diet with good consistency and no evidence of clinical signs of aspiration. Diet is least restrictive, further WRITER EDITOR service note indicated at this time, will D/C Speech. Frequency/Duration: Date Range for Service Req: Timeline to reassess: Forklift Wheel Loader Clinican/Clinical Fellow: No Supervisory Statement: I have reviewed and agree with the student/clinical fellow's documentation: N/A Speech Language Pathologist: Vicki Jane M.A., [facility]-WRITER EDITOR
[2024-09-27 20:00] VITALS: BP 120/70; PULSE 92; RESP 16; TEMP 36.6; O2SAT 95
[2024-09-27] MEDS: Divalproex Sodium Sprinkles 125 MG CAP.DR.SPR 500 MG PO (21:21)
--- NOTE | 2024-09-28 07:25 | HO.PSYCHPN ---
Subjective Subjective Date of Service: 09/28/24 Reason For Visit: catatonia Interim History: met with patient. Discussed with nursing. Nursing note that he is brighter in affect with ketamine treatment -ast dose 09/26/2024. Short-term memory impaired. With process description writer pleasant and is bright in affect. Reports mood is okay but does like to isolative in room. Denied sleep disturbance. Denied medication concerns. Eating and drinking okay. Medication Compliance: Yes Side effects from medications: No Attending Groups: No Review of Systems Acute medical concerns: No Review of Systems Review of Systems nothing acute Mental Status Exam Mental Status Exam Narrative: Alert, oriented to place, month, year , but also has very limited understanding of why he is in the hospital or treatment planning. Established secondary parkinsonism notice impacting jaw, both hands and right foot. No overt psychosis or delusional content denies auditory hallucination . Some degree of thought blocking continues , poverty of content. affect was brighter today. No SI/HI. No aggression towards self or others. Diagnostics Vital Signs (24Hr): Vital Signs - 24 hr 09/27/24 07:55 09/27/24 20:00 Temperature 97.3 F 97.8 F Pulse Rate 80 92 Respiratory Rate 18 16 Blood Pressure 130/77 120/70 Pulse Oximetry 98 95 Oxygen Delivery Method Room Air Room Air BMI result Body Mass Index 29.4 Labs 09/17/24 10:47 09/10/24 07:44 Imaging Radiology Impressions: ITS Impressions Venous Duplex 09/09/24 14:33 IMPRESSION: Nonocclusive thrombus, left cephalic vein. Electronically signed by: Maaynk Irwin MD 09/09/2024 03:31 PM EDT Medications Medications Current Medications Acetaminophen (Acetaminophen 325 Mg Tablet) 650 mg PO Q6H PRN PRN Reason: Headache/Pain, Scale 1-10 Last Admin: 09/06/24 02:01 Dose: 650 mg Al Hydroxide/Mg Hydroxide (Magnesium Hydrox/Alum Hydrox 30 Ml Oral.Susp) 30 ml PO Q6H PRN PRN Reason: Heartburn/Nausea Last Admin: 08/17/24 21:50 Dose: 30 ml Albuterol/Ipratropium (Albuterol/Iprat 2.5/0.5mg 3 Ml Ampul.Neb) 3 ml INHALE QID PRN PRN Reason: wheezing Apixaban (Apixaban 5 Mg Tablet) 5 mg PO BID [facility] Stop: 10/08/24 08:59 Last Admin: 09/27/24 21:21 Dose: 5 mg Aripiprazole (Aripiprazole 5 Mg Tablet) 5 mg PO DAILY@1730 [facility] Last Admin: 09/27/24 16:45 Dose: 5 mg Benzocaine (Throat Lozenge, Medicated Lozenge) 1 lozenge MUCOUS MEM Q2H PRN PRN Reason: Sore Throat Clozapine 100 mg/ Clozapine 50 (mg) 150 mg PO DAILY@1999 [facility] Last Admin: 09/27/24 21:20 Dose: 150 mg Divalproex Sodium (Divalproex Sodium Sprinkles 125 Mg Cap.Dr.Spr) 500 mg PO DAILY@1999 [facility] Last Admin: 09/27/24 21:21 Dose: 500 mg Ferrous Sulfate (Ferrous Sulfate 324 Mg Tablet.Dr) 324 mg PO DAILY [facility] Last Admin: 09/27/24 07:58 Dose: 324 mg Finasteride (Finasteride 5 Mg Tablet) 5 mg PO DAILY [facility] Last Admin: 09/27/24 07:58 Dose: 5 mg Magnesium Hydroxide (Milk Of Magnesia 30 Ml Oral.Susp) 30 ml PO DAILY PRN PRN Reason: Constipation Last Admin: 09/17/24 15:15 Dose: 30 ml Mirtazapine (Mirtazapine 15 Mg Tablet) 15 mg PO BEDTIME [facility] Last Admin: 09/27/24 21:21 Dose: 15 mg Olanzapine (Olanzapine Odt 10 Mg Tab.Rapdis) 5 mg TRANSLINGU BID PRN PRN Reason: agitation Last Admin: 09/24/24 20:10 Dose: 5 mg Pramipexole Dihydrochloride (Pramipexole Di-Hcl 0.25 Mg Tablet) 0.5 mg PO TID [facility] Last Admin: 09/27/24 21:20 Dose: 0.5 mg Sertraline HCl (Sertraline Hcl 25 Mg Tablet) 75 mg PO DAILY [facility] Last Admin: 09/27/24 07:58 Dose: 75 mg Sodium Chloride (0.9 % Sodium Chloride Flush 10 Ml Syringe) 10 ml IVFLUSH QSHIFT [facility] Last Admin: 09/27/24 21:27 Dose: 10 ml Tamsulosin HCl (Tamsulosin Hcl 0.4 Mg Capsule) 0.8 mg PO BEDTIME [facility] Last Admin: 09/27/24 21:20 Dose: 0.8 mg Thiamine HCl (Thiamine Hcl 100 Mg Tablet) 100 mg PO DAILY [facility] Last Admin: 09/27/24 07:58 Dose: 100 mg Allergies Allergies Allergy/AdvReac Type Severity Reaction Status Date / Time No Known Allergies (NKA) Allergy Unknown NONE Verified 06/19/24 20:43 Assessment & Plan Assessment & Plan (1) Schizoaffective disorder: Status: Acute Code(s): F25.9 - Schizoaffective disorder, unspecified (2) Catatonia: Status: Acute Code(s): F06.1 - Catatonic disorder due to known physiological condition Plan Nonocclusive thrombus left cephalic vein Discuss case with Aldo who recommended 4 weeks of Eliquis which is ordered Elevate extremity Midline to be removed-we will defer decision to reinsert midline for ketamine treatments to psychiatry team. 09/10/2024 Ketamine scheduled for 2 days from today midline to be placed Eliquis ordered case for cephalic vein thrombosis being managed by hospitalist service 09/11/2024 Patient showing gradual improvement ketamine scheduled for tomorrow reinsertion of midline more alert improved engagement no hallucinations delusional material or aggression noted today still flat needs cuing aware of discharge planning ketamine scheduled for the morning continue clozapine sertraline Abilify per catatonia protocol 09/12/2024 Continue clozapine sertraline Abilify improvement noted discharge planning meeting scheduled 08/2024 Continue plan of care no change indicated [id number] time discharge planning meeting shortly has responded to weekly ketamine 09/14: Continue current regimen and plans 09/15: Continue current regimen and plans 09/16/24 Continue clozapine scheduled another ketamine treatment for this week discussed discharge planning and transition 09/19/2024 Patient tolerated ketamine well no less restrictive setting available. If unable to get ketamine outpatient will taper and discontinue patient with significant cognitive changes status post catatonia and ICU admission question etiology TSH B12 folate unremarkable 09/21 continue tx. 09/22 continue tx 09/23/2024 Continue ketamine treatment this week will then try and discontinue since not clear if can be continued as an outpatient. Check Depakote and ammonia level will try and keep Depakote on the lower side patient not manic will try to avoid over-sedation. Mirtazapine 15 mg increase per catatonia protocol continue dopamine agonist increase sertraline to 75 mg. Check repeat swallowing at bedside see if diet can be increased 09/24/2024 Continue plan of care monitor response to mirtazapine 15 sertraline 75 mg ketamine scheduled for 09/26/2024 09/27/2024: No changes to current plan i.e. maintain ketamine treatment 09/28: no changes Reason for continued inpatient stay Substantial Risk for: rapid decompensation Time Spent With Patient Time: Total time managing care of this patient today ____ minutes.
[2024-09-28 07:54] VITALS: BP 111/66; PULSE 86; RESP 18; TEMP 36.4; O2SAT 99
[2024-09-28] MEDS: Ferrous Sulfate 324 MG TABLET.DR PO (08:21)
[2024-09-28] MEDS: 0.9 % Sodium Chloride Flush 10 ML SYRINGE IVFLUSH ×3 (08:21→23:11)
[2024-09-28 20:00] VITALS: BP 127/58; PULSE 73; RESP 16; TEMP 36.3; O2SAT 97
[2024-09-28] MEDS: Divalproex Sodium Sprinkles 125 MG CAP.DR.SPR 500 MG PO (20:40)
--- NOTE | 2024-09-28 23:21 | PC.NURSE ---
mid line flushed at 2320 with 10cc of NS positive blood return asymptomatic
[2024-09-29 08:00] VITALS: BP 137/70; PULSE 93; RESP 18; TEMP 36.2; O2SAT 98
[2024-09-29] MEDS: Ferrous Sulfate 324 MG TABLET.DR PO (08:30)
[2024-09-29] MEDS: 0.9 % Sodium Chloride Flush 10 ML SYRINGE IVFLUSH ×3 (09:57→23:44)
--- NOTE | 2024-09-29 10:12 | PC.NURSE ---
Midline dressing changed, dressing change previously done 09/11, discussed with provider and nursing leadership. Site is asymptomatic, previous dressing intact, biopatch inplace, no signs of phlebitis( discomfort, redness, swelling, erythema, warmth), + blood return and flushes well. Line okay to continue to use dressing was changed with central line dressing change kit, new biopatch applied.
--- NOTE | 2024-09-29 10:58 | HO.PSYCHPN ---
Subjective Subjective Date of Service: 09/29/24 Reason For Visit: catatonia Interim History: met with patient. Discussed with nursing. Nursing note that he is brighter in affect with ketamine treatment -last dose 09/26/2024. Nursing worked with nursing scanning supervisor ref dressing/IV maintenace for ketamine treatment and dressing being overdue. With designer/writer pleasant and is bright in affect. Reports mood is okay. Denied sleep disturbance. Denied medication concerns. Eating and drinking okay. Medication Compliance: Yes Side effects from medications: No Attending Groups: No Review of Systems Acute medical concerns: No Review of Systems Review of Systems nothing acute Mental Status Exam Mental Status Exam Narrative: Alert, oriented to place, month, year , but limited understanding of why he is in the hospital or treatment planning. Established secondary parkinsonism notice impacting jaw, both hands and right foot. No overt psychosis or delusional content denies auditory hallucination . Some degree of thought blocking continues , poverty of content. affect was brighter today. No SI/HI. No aggression towards self or others. Diagnostics Vital Signs (24Hr): Vital Signs - 24 hr 09/28/24 20:00 09/29/24 08:00 Temperature 97.4 F 97.1 F Pulse Rate 73 93 Respiratory Rate 16 18 Blood Pressure 127/58 L 137/70 Pulse Oximetry 97 98 Oxygen Delivery Method Room Air Room Air BMI result Body Mass Index 29.4 Labs 09/29/24 11:23 09/10/24 07:44 Imaging Radiology Impressions: ITS Impressions Venous Duplex 09/09/24 14:33 IMPRESSION: Nonocclusive thrombus, left cephalic vein. Electronically signed by: Mayank Irwin MD 09/09/2024 03:31 PM EDT Medications Medications Current Medications Acetaminophen (Acetaminophen 325 Mg Tablet) 650 mg PO Q6H PRN PRN Reason: Headache/Pain, Scale 1-10 Last Admin: 09/06/24 02:01 Dose: 650 mg Al Hydroxide/Mg Hydroxide (Magnesium Hydrox/Alum Hydrox 30 Ml Oral.Susp) 30 ml PO Q6H PRN PRN Reason: Heartburn/Nausea Last Admin: 08/17/24 21:50 Dose: 30 ml Albuterol/Ipratropium (Albuterol/Iprat 2.5/0.5mg 3 Ml Ampul.Neb) 3 ml INHALE QID PRN PRN Reason: wheezing Apixaban (Apixaban 5 Mg Tablet) 5 mg PO BID [facility] Stop: 10/08/24 08:59 Last Admin: 09/29/24 08:31 Dose: 5 mg Aripiprazole (Aripiprazole 5 Mg Tablet) 5 mg PO DAILY@1730 [facility] Last Admin: 09/28/24 16:42 Dose: 5 mg Benzocaine (Throat Lozenge, Medicated Lozenge) 1 lozenge MUCOUS MEM Q2H PRN PRN Reason: Sore Throat Clozapine 100 mg/ Clozapine 50 (mg) 150 mg PO DAILY@1999 [facility] Last Admin: 09/28/24 20:41 Dose: 150 mg Divalproex Sodium (Divalproex Sodium Sprinkles 125 Mg Cap.Dr.Spr) 500 mg PO DAILY@1999 [facility] Last Admin: 09/28/24 20:40 Dose: 500 mg Ferrous Sulfate (Ferrous Sulfate 324 Mg Tablet.Dr) 324 mg PO DAILY [facility] Last Admin: 09/29/24 08:30 Dose: 324 mg Finasteride (Finasteride 5 Mg Tablet) 5 mg PO DAILY [facility] Last Admin: 09/29/24 08:30 Dose: 5 mg Magnesium Hydroxide (Milk Of Magnesia 30 Ml Oral.Susp) 30 ml PO DAILY PRN PRN Reason: Constipation Last Admin: 09/17/24 15:15 Dose: 30 ml Mirtazapine (Mirtazapine 15 Mg Tablet) 15 mg PO BEDTIME [facility] Last Admin: 09/28/24 20:42 Dose: 15 mg Olanzapine (Olanzapine Odt 10 Mg Tab.Rapdis) 5 mg TRANSLINGU BID PRN PRN Reason: agitation Last Admin: 09/24/24 20:10 Dose: 5 mg Pramipexole Dihydrochloride (Pramipexole Di-Hcl 0.25 Mg Tablet) 0.5 mg PO TID [facility] Last Admin: 09/29/24 08:30 Dose: 0.5 mg Sertraline HCl (Sertraline Hcl 25 Mg Tablet) 75 mg PO DAILY [facility] Last Admin: 09/29/24 08:31 Dose: 75 mg Sodium Chloride (0.9 % Sodium Chloride Flush 10 Ml Syringe) 10 ml IVFLUSH QSHIFT [facility] Last Admin: 09/29/24 09:57 Dose: 10 ml Tamsulosin HCl (Tamsulosin Hcl 0.4 Mg Capsule) 0.8 mg PO BEDTIME [facility] Last Admin: 09/28/24 20:40 Dose: 0.8 mg Thiamine HCl (Thiamine Hcl 100 Mg Tablet) 100 mg PO DAILY [facility] Last Admin: 09/29/24 08:30 Dose: 100 mg Allergies Allergies Allergy/AdvReac Type Severity Reaction Status Date / Time No Known Allergies (NKA) Allergy Unknown NONE Verified 06/19/24 20:43 Assessment & Plan Assessment & Plan (1) Schizoaffective disorder: Status: Acute Code(s): F25.9 - Schizoaffective disorder, unspecified (2) Catatonia: Status: Acute Code(s): F06.1 - Catatonic disorder due to known physiological condition Plan Nonocclusive thrombus left cephalic vein Discuss case with Aldo who recommended 4 weeks of Eliquis which is ordered Elevate extremity Midline to be removed-we will defer decision to reinsert midline for ketamine treatments to psychiatry team. 09/10/2024 Ketamine scheduled for 2 days from today midline to be placed Eliquis ordered case for cephalic vein thrombosis being managed by hospitalist service 09/11/2024 Patient showing gradual improvement ketamine scheduled for tomorrow reinsertion of midline more alert improved engagement no hallucinations delusional material or aggression noted today still flat needs cuing aware of discharge planning ketamine scheduled for the morning continue clozapine sertraline Abilify per catatonia protocol 09/12/2024 Continue clozapine sertraline Abilify improvement noted discharge planning meeting scheduled 08/2024 Continue plan of care no change indicated [id number] time discharge planning meeting shortly has responded to weekly ketamine 09/14: Continue current regimen and plans 09/15: Continue current regimen and plans 09/16/24 Continue clozapine scheduled another ketamine treatment for this week discussed discharge planning and transition 09/19/2024 Patient tolerated ketamine well no less restrictive setting available. If unable to get ketamine outpatient will taper and discontinue patient with significant cognitive changes status post catatonia and ICU admission question etiology TSH B12 folate unremarkable 09/21 continue tx. 09/22 continue tx 09/23/2024 Continue ketamine treatment this week will then try and discontinue since not clear if can be continued as an outpatient. Check Depakote and ammonia level will try and keep Depakote on the lower side patient not manic will try to avoid over-sedation. Mirtazapine 15 mg increase per catatonia protocol continue dopamine agonist increase sertraline to 75 mg. Check repeat swallowing at bedside see if diet can be increased 09/24/2024 Continue plan of care monitor response to mirtazapine 15 sertraline 75 mg ketamine scheduled for 09/26/2024 09/27/2024: No changes to current plan i.e. maintain ketamine treatment 09/28: no changes 09/29: no changes. Otherwise Nursing worked with nursing scanning supervisor ref dressing/IV maintenace for ketamine treatment and dressing being overdue. Reason for continued inpatient stay Substantial Risk for: inability to function Time Spent With Patient Time: Total time managing care of this patient today ____ minutes.
[2024-09-29 11:31] LABS: MANUAL DIFF FLAG NO
[2024-09-29 11:33] LABS: Hematocrit 34.6 % (42.0-52.0); Hemoglobin 11.4 g/dl (14.0-18.0); Imm Gran Abs Auto 0.06 X10*3/uL (0.00-0.03); Imm Gran Pct Auto 0.9 % (0.0-0.4); Lymphocytes Absolute Auto 1.4 X10*3/uL (1.2-4.9); Mean Corpuscular HGB Conc 32.9 g/dl (31.0-36.0); Mean Corpuscular Hemoglobin 29.3 pg (27.0-33.0); Mean Corpuscular Volume 88.9 fL (80.0-98.0); NRBC Abs Auto 0.000 X10*3/uL (0.0-0.012); NRBC Pct Auto 0.0 /100WBC (0.0-0.2); Platelet Count 175 X10*3/uL (160-400); Red Blood Count 3.89 X10*6/uL (4.60-5.80); White Blood Count 6.4 X10*3/uL (4.8-10.8)
[2024-09-29 20:00] VITALS: BP 127/68; PULSE 78; RESP 16; TEMP 37.2; O2SAT 97
[2024-09-29] MEDS: Divalproex Sodium Sprinkles 125 MG CAP.DR.SPR 500 MG PO (20:12)
[2024-09-30 08:00] VITALS: BP 124/70; PULSE 68; RESP 16; TEMP 35.8; O2SAT 100
[2024-09-30] MEDS: Ferrous Sulfate 324 MG TABLET.DR PO (08:43)
[2024-09-30] MEDS: 0.9 % Sodium Chloride Flush 10 ML SYRINGE IVFLUSH ×2 (08:48→17:29)
--- NOTE | 2024-09-30 08:48 | P.PNPSI_ITS ---
Subjective Subjective Date of Service: 09/30/24 Reason For Visit: catatonia Subjective Notes: Conditional Voluntary Healthcare Proxy: Yes Interim History: Pt slept through the night. No overt psychosis or delusions. He is visible on the unit, social with select peers, does ask same questions about discharge over and over. No SI/HI. He is taking medications as prescribed. noted involuntary perioral movement and resting tremor more pronounce on right hand. VS stable. denies constipation. Review of Systems Review of Systems nothing acute Yes all other systems are reviewed and are negative and Unobtainable due to mental status Mental Status Exam Mental Status Exam Narrative: Alert, oriented to place, month, year. No overt psychosis or delusional content denies auditory hallucination . Some degree of thought blocking continues , poverty of content. affect orozco can smile No SI/HI. No aggression towards self or others. Improved impulse control insight improving Diagnostics Vital Signs (24Hr): Vital Signs - 24 hr 09/29/24 20:00 09/30/24 08:00 Temperature 98.9 F 96.5 F L Pulse Rate 78 68 Respiratory Rate 16 16 Blood Pressure 127/68 124/70 Pulse Oximetry 97 100 Oxygen Delivery Method Room Air Room Air BMI result Body Mass Index 29.4 Labs 09/29/24 11:23 09/10/24 07:44 Labs: Laboratory Results - last 48 hr 09/29/24 11:23 WBC 6.4 RBC 3.89 L Hgb 11.4 L Hct 34.6 L MCV 88.9 MCH 29.3 MCHC 32.9 RDW 15.0 Plt Count 175 MPV 10.9 Immature Gran % (Auto) 0.9 H Neut % (Auto) 67.8 Lymph % (Auto) 22.0 [place] % (Auto) 9.1 Eos % (Auto) 0.0 Baso % (Auto) 0.2 Lymph # (Auto) 1.4 [place] # (Auto) 0.6 Eos # (Auto) 0.0 Baso # (Auto) 0.0 Abs Immat Gran (auto) 0.06 H Absolute Neuts (auto) 4.3 Absolute Nucleated RBC 0.000 Nucleated RBC % (auto) 0.0 Imaging Radiology Impressions: ITS Impressions Venous Duplex 09/09/24 14:33 IMPRESSION: Nonocclusive thrombus, left cephalic vein. Electronically signed by: Mayank Irwin MD 09/09/2024 03:31 PM EDT Medications Medications Current Medications Acetaminophen (Acetaminophen 325 Mg Tablet) 650 mg PO Q6H PRN PRN Reason: Headache/Pain, Scale 1-10 Last Admin: 09/06/24 02:01 Dose: 650 mg Al Hydroxide/Mg Hydroxide (Magnesium Hydrox/Alum Hydrox 30 Ml Oral.Susp) 30 ml PO Q6H PRN PRN Reason: Heartburn/Nausea Last Admin: 08/17/24 21:50 Dose: 30 ml Albuterol/Ipratropium (Albuterol/Iprat 2.5/0.5mg 3 Ml Ampul.Neb) 3 ml INHALE QID PRN PRN Reason: wheezing Apixaban (Apixaban 5 Mg Tablet) 5 mg PO BID [facility] Stop: 10/08/24 08:59 Last Admin: 09/30/24 08:43 Dose: 5 mg Aripiprazole (Aripiprazole 5 Mg Tablet) 5 mg PO DAILY@1730 [facility] Last Admin: 09/29/24 16:36 Dose: 5 mg Benzocaine (Throat Lozenge, Medicated Lozenge) 1 lozenge MUCOUS MEM Q2H PRN PRN Reason: Sore Throat Clozapine 100 mg/ Clozapine 50 (mg) 150 mg PO DAILY@1999 [facility] Last Admin: 09/29/24 20:12 Dose: 150 mg Divalproex Sodium (Divalproex Sodium Sprinkles 125 Mg Cap.) 500 mg PO DAILY@1999 [facility] Last Admin: 09/29/24 20:12 Dose: 500 mg Ferrous Sulfate (Ferrous Sulfate 324 Mg Tablet.) 324 mg PO DAILY [facility] Last Admin: 09/30/24 08:43 Dose: 324 mg Finasteride (Finasteride 5 Mg Tablet) 5 mg PO DAILY [facility] Last Admin: 09/29/24 08:30 Dose: 5 mg Magnesium Hydroxide (Milk Of Magnesia 30 Ml Oral.Susp) 30 ml PO DAILY PRN PRN Reason: Constipation Last Admin: 09/17/24 15:15 Dose: 30 ml Mirtazapine (Mirtazapine 15 Mg Tablet) 15 mg PO BEDTIME [facility] Last Admin: 09/29/24 20:12 Dose: 15 mg Olanzapine (Olanzapine Odt 10 Mg Tab.Rapdis) 5 mg TRANSLINGU BID PRN PRN Reason: agitation Last Admin: 09/24/24 20:10 Dose: 5 mg Pramipexole Dihydrochloride (Pramipexole Di-Hcl 0.25 Mg Tablet) 0.5 mg PO TID [facility] Last Admin: 09/30/24 08:43 Dose: 0.5 mg Sertraline HCl (Sertraline Hcl 25 Mg Tablet) 75 mg PO DAILY [facility] Last Admin: 09/30/24 08:43 Dose: 75 mg Sodium Chloride (0.9 % Sodium Chloride Flush 10 Ml Syringe) 10 ml IVFLUSH QSHIFT [facility] Last Admin: 09/29/24 23:44 Dose: 10 ml Tamsulosin HCl (Tamsulosin Hcl 0.4 Mg Capsule) 0.8 mg PO BEDTIME [facility] Last Admin: 09/29/24 20:12 Dose: 0.8 mg Thiamine HCl (Thiamine Hcl 100 Mg Tablet) 100 mg PO DAILY [facility] Last Admin: 09/30/24 08:43 Dose: 100 mg Allergies Allergies Allergy/AdvReac Type Severity Reaction Status Date / Time No Known Allergies (NKA) Allergy Unknown NONE Verified 06/19/24 20:43 Assessment & Plan Assessment & Plan (1) Schizoaffective disorder: Status: Acute Code(s): F25.9 - Schizoaffective disorder, unspecified (2) Catatonia: Status: Acute Code(s): F06.1 - Catatonic disorder due to known physiological condition Plan Nonocclusive thrombus left cephalic vein Discuss case with Aldo who recommended 4 weeks of Eliquis which is ordered Elevate extremity Midline to be removed-we will defer decision to reinsert midline for ketamine treatments to psychiatry team. 09/10/2024 Ketamine scheduled for 2 days from today midline to be placed Eliquis ordered case for cephalic vein thrombosis being managed by hospitalist service 09/11/2024 Patient showing gradual improvement ketamine scheduled for tomorrow reinsertion of midline more alert improved engagement no hallucinations delusional material or aggression noted today still flat needs cuing aware of discharge planning ketamine scheduled for the morning continue clozapine sertraline Abilify per catatonia protocol 09/12/2024 Continue clozapine sertraline Abilify improvement noted discharge planning meeting scheduled 08/2024 Continue plan of care no change indicated [id number] time discharge planning meeting shortly has responded to weekly ketamine 09/14: Continue current regimen and plans 09/15: Continue current regimen and plans 09/16/24 Continue clozapine scheduled another ketamine treatment for this week discussed discharge planning and transition 09/19/2024 Patient tolerated ketamine well no less restrictive setting available. If unable to get ketamine outpatient will taper and discontinue patient with significant cognitive changes status post catatonia and ICU admission question etiology TSH B12 folate unremarkable 09/21 continue tx. 09/22 continue tx 09/23/2024 Continue ketamine treatment this week will then try and discontinue since not clear if can be continued as an outpatient. Check Depakote and ammonia level will try and keep Depakote on the lower side patient not manic will try to avoid over-sedation. Mirtazapine 15 mg increase per catatonia protocol continue dopamine agonist increase sertraline to 75 mg. Check repeat swallowing at bedside see if diet can be increased 09/24/2024 Continue plan of care monitor response to mirtazapine 15 sertraline 75 mg ketamine scheduled for 09/26/2024 09/27/2024: No changes to current plan i.e. maintain ketamine treatment 09/28: no changes 09/29: no changes. Otherwise Nursing worked with nursing supervisor acoustical tile car[employer] ref dressing/IV maintenace for ketamine treatment and dressing being overdue. 09/30 continue tx. Reason for continued inpatient stay Substantial Risk for: inability to function Time Spent With Patient Time: Total time managing care of this patient today ____ minutes.
[2024-09-30 20:00] VITALS: BP 119/59; PULSE 72; RESP 18; TEMP 36.2; O2SAT 99
[2024-09-30] MEDS: Divalproex Sodium Sprinkles 125 MG CAP.DR.SPR 500 MG PO (20:21)
[2024-10-01] MEDS: 0.9 % Sodium Chloride Flush 10 ML SYRINGE IVFLUSH ×3 (00:35→19:42)
[2024-10-01 07:49] LABS: Neut%MD 65.3 %; WBCANC 7.1 X10*3/uL
[2024-10-01 08:00] VITALS: BP 137/64; PULSE 85; RESP 14; TEMP 36.6; O2SAT 99
[2024-10-01] MEDS: Ferrous Sulfate 324 MG TABLET.DR PO (09:10)
[2024-10-01] MEDS: Divalproex Sodium Sprinkles 125 MG CAP.DR.SPR 500 MG PO (19:50)
[2024-10-01 20:00] VITALS: BP 125/61; PULSE 72; RESP 14; TEMP 36.6; O2SAT 95
[2024-10-02] MEDS: 0.9 % Sodium Chloride Flush 10 ML SYRINGE IVFLUSH ×3 (00:10→15:29)
--- NOTE | 2024-10-02 00:17 | PC.NURSE ---
Right upper arm midline flushed. Line appears patent and intact. Green alcohol top replaced.
[2024-10-02 08:00] VITALS: BP 128/62; PULSE 93; RESP 16; TEMP 36.3; O2SAT 97
[2024-10-02] MEDS: Ferrous Sulfate 324 MG TABLET.DR PO (08:29)
--- NOTE | 2024-10-02 16:18 | HO.PSYCHPN ---
Subjective Subjective Date of Service: 10/02/24 Reason For Visit: catatonia Subjective Notes: Conditional Voluntary Healthcare Proxy: Yes Interim History: Pt slept through the night. Pt does not present with psychosis or overt delusions. No SI/HI. no aggression. he is looking forward to discharge soon. Medication Compliance: Yes Review of Systems Review of Systems nothing acute Yes all other systems are reviewed and are negative and Unobtainable due to mental status Mental Status Exam Mental Status Exam Narrative: Alert, oriented to place, month, year. No overt psychosis or delusional content denies auditory hallucination . Some degree of thought blocking continues , poverty of content. affect orozco can smile No SI/HI. No aggression towards self or others. Improved impulse control insight improving Diagnostics Vital Signs (24Hr): Vital Signs - 24 hr 10/01/24 20:00 10/02/24 08:00 Temperature 97.9 F 97.3 F Pulse Rate 72 93 Respiratory Rate 14 16 Blood Pressure 125/61 128/62 Pulse Oximetry 95 97 Oxygen Delivery Method Room Air Room Air BMI result Body Mass Index 29.4 Labs 09/29/24 11:23 09/10/24 07:44 Labs: Laboratory Results - last 48 hr 10/01/24 07:26 Absolute Neuts (auto) 4.6 Imaging Radiology Impressions: ITS Impressions Venous Duplex 09/09/24 14:33 IMPRESSION: Nonocclusive thrombus, left cephalic vein. Electronically signed by: Mayank Irwin MD 09/09/2024 03:31 PM EDT Medications Medications Current Medications Acetaminophen (Acetaminophen 325 Mg Tablet) 650 mg PO Q6H PRN PRN Reason: Headache/Pain, Scale 1-10 Last Admin: 09/06/24 02:01 Dose: 650 mg Al Hydroxide/Mg Hydroxide (Magnesium Hydrox/Alum Hydrox 30 Ml Oral.Susp) 30 ml PO Q6H PRN PRN Reason: Heartburn/Nausea Last Admin: 08/17/24 21:50 Dose: 30 ml Albuterol/Ipratropium (Albuterol/Iprat 2.5/0.5mg 3 Ml Ampul.Neb) 3 ml INHALE QID PRN PRN Reason: wheezing Apixaban (Apixaban 5 Mg Tablet) 5 mg PO BID KRISTIN Stop: 10/08/24 08:59 Last Admin: 10/02/24 08:26 Dose: 5 mg Aripiprazole (Aripiprazole 5 Mg Tablet) 5 mg PO DAILY@1730 [facility] Last Admin: 10/01/24 17:05 Dose: 5 mg Benzocaine (Throat Lozenge, Medicated Lozenge) 1 lozenge MUCOUS MEM Q2H PRN PRN Reason: Sore Throat Clozapine 100 mg/ Clozapine 50 (mg) 150 mg PO DAILY@1999 [facility] Last Admin: 10/01/24 19:51 Dose: 150 mg Divalproex Sodium (Divalproex Sodium Sprinkles 125 Mg Cap.Dr.Spr) 500 mg PO DAILY@1999 [facility] Last Admin: 10/01/24 19:50 Dose: 500 mg Ferrous Sulfate (Ferrous Sulfate 324 Mg Tablet.Dr) 324 mg PO DAILY [facility] Last Admin: 10/02/24 08:29 Dose: 324 mg Finasteride (Finasteride 5 Mg Tablet) 5 mg PO DAILY [facility] Last Admin: 10/02/24 08:26 Dose: 5 mg Ketamine HCl 500 mg/ Sodium (Chloride) 23.001 mls @ 23.001 mls/hr IV .Q1H [facility]; Protocol Stop: 10/03/24 08:29 Magnesium Hydroxide (Milk Of Magnesia 30 Ml Oral.Susp) 30 ml PO DAILY PRN PRN Reason: Constipation Last Admin: 09/17/24 15:15 Dose: 30 ml Mirtazapine (Mirtazapine 15 Mg Tablet) 15 mg PO BEDTIME [facility] Last Admin: 10/01/24 19:51 Dose: 15 mg Olanzapine (Olanzapine Odt 10 Mg Tab.Rapdis) 5 mg TRANSLINGU BID PRN PRN Reason: agitation Last Admin: 09/24/24 20:10 Dose: 5 mg Pramipexole Dihydrochloride (Pramipexole Di-Hcl 0.25 Mg Tablet) 0.5 mg PO TID [facility] Last Admin: 10/02/24 15:29 Dose: 0.5 mg Sertraline HCl (Sertraline Hcl 25 Mg Tablet) 75 mg PO DAILY [facility] Last Admin: 10/02/24 08:26 Dose: 75 mg Sodium Chloride (0.9 % Sodium Chloride Flush 10 Ml Syringe) 10 ml IVFLUSH QSHIFT [facility] Last Admin: 10/02/24 15:29 Dose: 10 ml Tamsulosin HCl (Tamsulosin Hcl 0.4 Mg Capsule) 0.8 mg PO BEDTIME [facility] Last Admin: 10/01/24 19:52 Dose: 0.8 mg Thiamine HCl (Thiamine Hcl 100 Mg Tablet) 100 mg PO DAILY [facility] Last Admin: 10/02/24 08:29 Dose: 100 mg Allergies Allergies Allergy/AdvReac Type Severity Reaction Status Date / Time No Known Allergies (NKA) Allergy Unknown NONE Verified 06/19/24 20:43 Assessment & Plan Assessment & Plan (1) Schizoaffective disorder: Status: Acute Code(s): F25.9 - Schizoaffective disorder, unspecified (2) Catatonia: Status: Acute Code(s): F06.1 - Catatonic disorder due to known physiological condition Plan Nonocclusive thrombus left cephalic vein Discuss case with Aldo who recommended 4 weeks of Eliquis which is ordered Elevate extremity Midline to be removed-we will defer decision to reinsert midline for ketamine treatments to psychiatry team. 09/10/2024 Ketamine scheduled for 2 days from today midline to be placed Eliquis ordered case for cephalic vein thrombosis being managed by hospitalist service 09/11/2024 Patient showing gradual improvement ketamine scheduled for tomorrow reinsertion of midline more alert improved engagement no hallucinations delusional material or aggression noted today still flat needs cuing aware of discharge planning ketamine scheduled for the morning continue clozapine sertraline Abilify per catatonia protocol 09/12/2024 Continue clozapine sertraline Abilify improvement noted discharge planning meeting scheduled 08/2024 Continue plan of care no change indicated [id number] time discharge planning meeting shortly has responded to weekly ketamine 09/14: Continue current regimen and plans 09/15: Continue current regimen and plans 09/16/24 Continue clozapine scheduled another ketamine treatment for this week discussed discharge planning and transition 09/19/2024 Patient tolerated ketamine well no less restrictive setting available. If unable to get ketamine outpatient will taper and discontinue patient with significant cognitive changes status post catatonia and ICU admission question etiology TSH B12 folate unremarkable 09/21 continue tx. 09/22 continue tx 09/23/2024 Continue ketamine treatment this week will then try and discontinue since not clear if can be continued as an outpatient. Check Depakote and ammonia level will try and keep Depakote on the lower side patient not manic will try to avoid over-sedation. Mirtazapine 15 mg increase per catatonia protocol continue dopamine agonist increase sertraline to 75 mg. Check repeat swallowing at bedside see if diet can be increased 09/24/2024 Continue plan of care monitor response to mirtazapine 15 sertraline 75 mg ketamine scheduled for 09/26/2024 09/27/2024: No changes to current plan i.e. maintain ketamine treatment 09/28: no changes 09/29: no changes. Otherwise Nursing worked with nursing supervisor hardboard ref dressing/IV maintenace for ketamine treatment and dressing being overdue. 09/30 continue tx. 10/01 continue tx 10/02 continue tx. Reason for continued inpatient stay Substantial Risk for: inability to function Time Spent With Patient Time: Total time managing care of this patient today ____ minutes.
[2024-10-02 20:00] VITALS: BP 147/69; PULSE 72; RESP 16; TEMP 37.1; O2SAT 97
[2024-10-02] MEDS: Divalproex Sodium Sprinkles 125 MG CAP.DR.SPR 500 MG PO (20:03)
[2024-10-03] MEDS: 0.9 % Sodium Chloride Flush 10 ML SYRINGE IVFLUSH ×4 (00:12→20:35)
[2024-10-03 08:00] VITALS: BP 128/65; PULSE 86; RESP 16; TEMP 37.3; O2SAT 97
[2024-10-03] MEDS: Ferrous Sulfate 324 MG TABLET.DR PO (08:59)
[2024-10-03 12:44] VITALS: BMI 29.5
[2024-10-03 20:00] VITALS: BP 135/63; PULSE 75; RESP 16; TEMP 36.9; O2SAT 98
[2024-10-03] MEDS: Divalproex Sodium Sprinkles 125 MG CAP.DR.SPR 500 MG PO (20:30)
--- NOTE | 2024-10-03 20:57 | HO.PSYCHPN ---
Subjective Subjective Date of Service: 10/03/24 Reason For Visit: catatonia Subjective Notes: Conditional Voluntary Interim History: Pt slept through the night. Pt does not present with psychosis or overt delusions. No SI/HI. no aggression. he is looking forward to discharge soon. Medication Compliance: Yes Review of Systems Review of Systems Denies any shortness of breath, chest pain, dizziness, lightheadedness, abdominal pain or discomfort, nausea vomiting or diarrhea Yes all other systems are reviewed and are negative and Unobtainable due to mental status Mental Status Exam Mental Status Exam Narrative: Alert, oriented to place, month, year. No overt psychosis or delusional content denies auditory hallucination . Some degree of thought blocking continues , poverty of content. affect orozco can smile No SI/HI. No aggression towards self or others. Improved impulse control insight improving Diagnostics Vital Signs (24Hr): Vital Signs - 24 hr 10/03/24 08:00 Temperature 99.1 F Pulse Rate 86 Respiratory Rate 16 Blood Pressure 128/65 Pulse Oximetry 97 Oxygen Delivery Method Room Air BMI result Body Mass Index 29.5 Labs 09/29/24 11:23 09/10/24 07:44 Imaging Radiology Impressions: ITS Impressions Venous Duplex 09/09/24 14:33 IMPRESSION: Nonocclusive thrombus, left cephalic vein. Electronically signed by: Mayank Irwin MD 09/09/2024 03:31 PM EDT Medications Medications Current Medications Acetaminophen (Acetaminophen 325 Mg Tablet) 650 mg PO Q6H PRN PRN Reason: Headache/Pain, Scale 1-10 Last Admin: 09/06/24 02:01 Dose: 650 mg Al Hydroxide/Mg Hydroxide (Magnesium Hydrox/Alum Hydrox 30 Ml Oral.Susp) 30 ml PO Q6H PRN PRN Reason: Heartburn/Nausea Last Admin: 08/17/24 21:50 Dose: 30 ml Albuterol/Ipratropium (Albuterol/Iprat 2.5/0.5mg 3 Ml Ampul.Neb) 3 ml INHALE QID PRN PRN Reason: wheezing Apixaban (Apixaban 5 Mg Tablet) 5 mg PO BID KRISTIN Stop: 10/08/24 08:59 Last Admin: 10/03/24 20:29 Dose: 5 mg Aripiprazole (Aripiprazole 5 Mg Tablet) 5 mg PO DAILY@1730 [facility] Last Admin: 10/03/24 17:48 Dose: 5 mg Ascorbic Acid (Ascorbic Acid 500 Mg Tablet) 500 mg PO DAILY [facility] Last Admin: 10/03/24 11:44 Dose: 500 mg Benzocaine (Throat Lozenge, Medicated Lozenge) 1 lozenge MUCOUS MEM Q2H PRN PRN Reason: Sore Throat Clozapine 100 mg/ Clozapine 50 (mg) 150 mg PO DAILY@1999 [facility] Last Admin: 10/03/24 20:29 Dose: 150 mg Divalproex Sodium (Divalproex Sodium Sprinkles 125 Mg Cap.) 500 mg PO DAILY@1999 [facility] Last Admin: 10/03/24 20:30 Dose: 500 mg Ferrous Sulfate (Ferrous Sulfate 324 Mg Tablet.) 324 mg PO DAILY [facility] Last Admin: 10/03/24 08:59 Dose: 324 mg Finasteride (Finasteride 5 Mg Tablet) 5 mg PO DAILY [facility] Last Admin: 10/03/24 08:58 Dose: 5 mg Ketamine HCl 500 mg/ Sodium (Chloride) 23.001 mls @ 23.001 mls/hr IV .Q1H [facility]; Protocol Stop: 10/03/24 08:29 Magnesium Hydroxide (Milk Of Magnesia 30 Ml Oral.Susp) 30 ml PO DAILY PRN PRN Reason: Constipation Last Admin: 09/17/24 15:15 Dose: 30 ml Mirtazapine (Mirtazapine 15 Mg Tablet) 15 mg PO BEDTIME [facility] Last Admin: 10/03/24 20:30 Dose: 15 mg Olanzapine (Olanzapine Odt 10 Mg Tab.Rapdis) 5 mg TRANSLINGU BID PRN PRN Reason: agitation Last Admin: 09/24/24 20:10 Dose: 5 mg Pramipexole Dihydrochloride (Pramipexole Di-Hcl 0.25 Mg Tablet) 0.5 mg PO TID [facility] Last Admin: 10/03/24 20:30 Dose: 0.5 mg Sertraline HCl (Sertraline Hcl 25 Mg Tablet) 75 mg PO DAILY [facility] Last Admin: 10/03/24 08:59 Dose: 75 mg Sodium Chloride (0.9 % Sodium Chloride Flush 10 Ml Syringe) 10 ml IVFLUSH QSHIFT [facility] Last Admin: 10/03/24 20:35 Dose: 10 ml Tamsulosin HCl (Tamsulosin Hcl 0.4 Mg Capsule) 0.8 mg PO BEDTIME [facility] Last Admin: 10/03/24 20:29 Dose: 0.8 mg Thiamine HCl (Thiamine Hcl 100 Mg Tablet) 100 mg PO DAILY [facility] Last Admin: 10/03/24 08:58 Dose: 100 mg Allergies Allergies Allergy/AdvReac Type Severity Reaction Status Date / Time No Known Allergies (NKA) Allergy Unknown NONE Verified 06/19/24 20:43 Assessment & Plan Assessment & Plan (1) Schizoaffective disorder: Status: Acute Code(s): F25.9 - Schizoaffective disorder, unspecified (2) Catatonia: Status: Acute Code(s): F06.1 - Catatonic disorder due to known physiological condition Plan Nonocclusive thrombus left cephalic vein Discuss case with Aldo who recommended 4 weeks of Eliquis which is ordered Elevate extremity Midline to be removed-we will defer decision to reinsert midline for ketamine treatments to psychiatry team. 09/10/2024 Ketamine scheduled for 2 days from today midline to be placed Eliquis ordered case for cephalic vein thrombosis being managed by hospitalist service 09/11/2024 Patient showing gradual improvement ketamine scheduled for tomorrow reinsertion of midline more alert improved engagement no hallucinations delusional material or aggression noted today still flat needs cuing aware of discharge planning ketamine scheduled for the morning continue clozapine sertraline Abilify per catatonia protocol 09/12/2024 Continue clozapine sertraline Abilify improvement noted discharge planning meeting scheduled 08/2024 Continue plan of care no change indicated [id number] time discharge planning meeting shortly has responded to weekly ketamine 09/14: Continue current regimen and plans 09/15: Continue current regimen and plans 09/16/24 Continue clozapine scheduled another ketamine treatment for this week discussed discharge planning and transition 09/19/2024 Patient tolerated ketamine well no less restrictive setting available. If unable to get ketamine outpatient will taper and discontinue patient with significant cognitive changes status post catatonia and ICU admission question etiology TSH B12 folate unremarkable 09/21 continue tx. 09/22 continue tx 09/23/2024 Continue ketamine treatment this week will then try and discontinue since not clear if can be continued as an outpatient. Check Depakote and ammonia level will try and keep Depakote on the lower side patient not manic will try to avoid over-sedation. Mirtazapine 15 mg increase per catatonia protocol continue dopamine agonist increase sertraline to 75 mg. Check repeat swallowing at bedside see if diet can be increased 09/24/2024 Continue plan of care monitor response to mirtazapine 15 sertraline 75 mg ketamine scheduled for 09/26/2024 09/27/2024: No changes to current plan i.e. maintain ketamine treatment 09/28: no changes 09/29: no changes. Otherwise Nursing worked with nursing toxicology supervisor ref dressing/IV maintenace for ketamine treatment and dressing being overdue. 09/30 continue tx. 10/01 continue tx 10/02 continue tx. 10/03 continue current tx. Reason for continued inpatient stay Substantial Risk for: inability to function Time Spent With Patient Time: Total time managing care of this patient today ____ minutes.
[2024-10-04 08:39] VITALS: BP 119/56; PULSE 93; RESP 16; TEMP 36.7; O2SAT 96
[2024-10-04] MEDS: 0.9 % Sodium Chloride Flush 10 ML SYRINGE IVFLUSH ×2 (08:40→16:56)
[2024-10-04] MEDS: Ferrous Sulfate 324 MG TABLET.DR PO (08:43)
--- NOTE | 2024-10-04 11:00 | HO.PM.IMCN ---
History of Present Illness Data of Consult Service Date: 10/04/24 Primary Care Provider: Unknown Physician HPI Reason for consult: Hand swelling Per nursing patient has swelling to his left hand. Patient is currently anticoagulated for nonocclusive thrombus in the left cephalic vein. Midline was removed in that arm, patient now has a midline in the right arm. No swelling noted in the arm. Patient denies any pain or discomfort. Reports that he has some hand numbness but this is longstanding for him prior to hospitalization. He has strong radial pulses. Full range of motion. No discoloration. Denies any injury, no bruising noted. Review of Systems Review of Systems: Denies any shortness of breath, chest pain, dizziness, lightheadedness, abdominal pain or discomfort, nausea vomiting or diarrhea PMFSH Medical History (Updated 09/23/24 @ 23:02 by Steven Huerta MD) Tardive dyskinesia Hospital discharge follow-up Mild sleep apnea Nocturnal hypoxia Routine medical exam Joint inflammation of right hand and wrist Status post fall Adult general medical exam Screening for colon cancer Screening for prostate cancer Cough BPH (benign prostatic hyperplasia) Family History Mother Cancer Father Kidney agenesis Surgical History History of colonoscopy (~06/15/21) History of tooth extraction History of root canal procedure Social History Household Members: Family Housing: Apartment Are you a primary child care specialist to a significant other at home: No Do you presently have visiting nurse or other home services: Yes Unable to assess alcohol history related to: Unable to respond Alcohol intake: former Comment: 5 min Patient Tobacco Use Status: Never used Tobacco e-Cigarette/Vaping Use: Never Used Second Hand Smoke Exposure: No service: No Current occupational status: employed Sexual orientation: Straight/Heterosexual Cognitive needs: No Hearing needs: No Vision needs: No Meds Allergies Allergy/AdvReac Type Severity Reaction Status Date / Time No Known Allergies (NKA) Allergy Unknown NONE Verified 06/19/24 20:43 Active Medications: Current Medications Acetaminophen (Acetaminophen 325 Mg Tablet) 650 mg PO Q6H PRN PRN Reason: Headache/Pain, Scale 1-10 Last Admin: 06/13/25 02:01 Dose: 650 mg Al Hydroxide/Mg Hydroxide (Magnesium Hydrox/Alum Hydrox 30 Ml Oral.Susp) 30 ml PO Q6H PRN PRN Reason: Heartburn/Nausea Last Admin: 08/17/24 21:50 Dose: 30 ml Apixaban (Apixaban 5 Mg Tablet) 5 mg PO BID [facility] Stop: 10/08/24 08:59 Last Admin: 10/04/24 08:43 Dose: 5 mg Aripiprazole (Aripiprazole 5 Mg Tablet) 5 mg PO DAILY@1730 [facility] Last Admin: 10/03/24 17:48 Dose: 5 mg Ascorbic Acid (Ascorbic Acid 500 Mg Tablet) 500 mg PO DAILY [facility] Last Admin: 10/04/24 08:43 Dose: 500 mg Benzocaine (Throat Lozenge, Medicated Lozenge) 1 lozenge MUCOUS MEM Q2H PRN PRN Reason: Sore Throat Clozapine 100 mg/ Clozapine 50 (mg) 150 mg PO DAILY@1999 [facility] Last Admin: 10/03/24 20:29 Dose: 150 mg Divalproex Sodium (Divalproex Sodium Sprinkles 125 Mg Cap.) 500 mg PO DAILY@1999 [facility] Last Admin: 10/03/24 20:30 Dose: 500 mg Ferrous Sulfate (Ferrous Sulfate 324 Mg Tablet.) 324 mg PO DAILY [facility] Last Admin: 10/04/24 08:43 Dose: 324 mg Finasteride (Finasteride 5 Mg Tablet) 5 mg PO DAILY [facility] Last Admin: 10/04/24 08:43 Dose: 5 mg Ketamine HCl 500 mg/ Sodium (Chloride) 23.001 mls @ 23.001 mls/hr IV .Q1H [facility]; Protocol Stop: 10/03/24 08:29 Magnesium Hydroxide (Milk Of Magnesia 30 Ml Oral.Susp) 30 ml PO DAILY PRN PRN Reason: Constipation Last Admin: 09/17/24 15:15 Dose: 30 ml Mirtazapine (Mirtazapine 15 Mg Tablet) 15 mg PO BEDTIME [facility] Last Admin: 10/03/24 20:30 Dose: 15 mg Olanzapine (Olanzapine Odt 10 Mg Tab.Rapdis) 5 mg TRANSLINGU BID PRN PRN Reason: agitation Last Admin: 09/24/24 20:10 Dose: 5 mg Pramipexole Dihydrochloride (Pramipexole Di-Hcl 0.25 Mg Tablet) 0.5 mg PO TID [facility] Last Admin: 10/04/24 08:43 Dose: 0.5 mg Sertraline HCl (Sertraline Hcl 25 Mg Tablet) 75 mg PO DAILY [facility] Last Admin: 10/04/24 08:43 Dose: 75 mg Sodium Chloride (0.9 % Sodium Chloride Flush 10 Ml Syringe) 10 ml IVFLUSH QSHIFT [facility] Last Admin: 10/04/24 08:40 Dose: 10 ml Tamsulosin HCl (Tamsulosin Hcl 0.4 Mg Capsule) 0.8 mg PO BEDTIME [facility] Last Admin: 10/03/24 20:29 Dose: 0.8 mg Thiamine HCl (Thiamine Hcl 100 Mg Tablet) 100 mg PO DAILY [facility] Last Admin: 10/04/24 08:43 Dose: 100 mg Physical Exam Vital Signs and Narrative: Vital Signs: Last Vital Signs Temp 98.1 F 10/04/24 08:39 Pulse 93 10/04/24 08:39 Resp 16 10/04/24 08:39 BP 119/56 L 10/04/24 08:39 Pulse Ox 96 10/04/24 08:39 O2 Del Method Room Air 10/04/24 08:39 BMI result Body Mass Index 29.5 CONST: Alert and oriented, in NAD. Well nourished HEENT: Normocephalic, atraumatic, MMM, Eyes clear, Neck supple RESP: Lungs clear, RRR even and regular HEART:,RRR, S1, S2. No murmur, no edema GI:Abdomen Soft NT, ND. + BS times four :Deferred SKIN: Warm dry and intact, no visible lesions or rashes. Trace edema to left hand NEURO:CN II-XII Intact bilaterally, Sensation intact. Speech clear PSYCH: Normal affect Results Labs 09/29/24 11:23 09/10/24 07:44 Assessment and Plan (1) Left cephalic vein thrombosis: Status: Acute Plan Schizoaffective disorder/Parkinsonism/catatonia Treatment per psychiatric team Patient will continue with Ketamine infusions per order of psychiatry team Midline inserted for this purpose Nonocclusive thrombus left cephalic vein Discuss case with Dr. Carlson who recommended 4 weeks of Eliquis which is ending October 08. Elevate extremity as needed Check Duplex US for resolution, plan to DC next week. Urinary retention with BPH Patient is voiding without difficulty Continue to monitor for any evidence of retention Continue with Tamsulosin and Proscar, patient on maximum medical therapy Hypertension Continues to be stable off medications
[2024-10-04 20:00] VITALS: BP 128/64; PULSE 79; RESP 18; TEMP 37.2; O2SAT 97
[2024-10-04] MEDS: Divalproex Sodium Sprinkles 125 MG CAP.DR.SPR 500 MG PO (20:01)
[2024-10-05] MEDS: 0.9 % Sodium Chloride Flush 10 ML SYRINGE IVFLUSH ×3 (00:42→17:34)
[2024-10-05 08:00] VITALS: BP 130/59; PULSE 81; RESP 16; TEMP 36.9; O2SAT 97
[2024-10-05] MEDS: Ferrous Sulfate 324 MG TABLET.DR PO (08:16)
--- NOTE | 2024-10-05 16:45 | HO.PSYCHPN ---
Subjective Subjective Date of Service: 10/05/24 Reason For Visit: catatonia Subjective Notes: Conditional Voluntary Interim History: Medical record and nursing notes reviewed; case discussed during rounds with team/nursing staff, and met with patient for supportive therapy/psychoeducation, as well as medication management. Patient reports slept well lastx, no appetite issues. Medication compliant without any side effects. Continue with current treatment plan. No safety concerns. No hallucinations. Medication Compliance: Yes Side effects from medications: No Attending Groups: Yes Review of Systems Acute medical concerns: No Medical Review of Systems: unchanged Review of Systems Review of Systems Constitutional: Denies fatigue and Denies fever(s) Cardiovascular: Denies chest pain and Denies dyspnea Respiratory: Denies dyspnea Gastrointestinal: Denies abdominal pain Psychiatric: denies suicidal ideation Endocrine: Denies fatigue Yes all other systems are reviewed and are negative Mental Status Exam Mental Status Exam Narrative: Alert, oriented to place, month, year. No overt psychosis or delusional content denies auditory hallucination . Some degree of thought blocking continues , poverty of content. affect orozco can smile No SI/HI. No aggression towards self or others. Improved impulse control insight improving,. No SI/SIB/HI/AVH. vislbe, pleasant and cooperative Diagnostics Vital Signs (24Hr): Vital Signs - 24 hr 10/04/24 20:00 10/05/24 08:00 Temperature 98.9 F 98.4 F Pulse Rate 79 81 Respiratory Rate 18 16 Blood Pressure 128/64 130/59 L Pulse Oximetry 97 97 Oxygen Delivery Method Room Air Room Air BMI result Body Mass Index 29.5 Labs 09/29/24 11:23 09/10/24 07:44 Imaging Radiology Impressions: ITS Impressions Venous Duplex 09/09/24 14:33 IMPRESSION: Nonocclusive thrombus, left cephalic vein. Electronically signed by: Mayank Irwin MD 09/09/2024 03:31 PM EDT RP Venous Duplex 10/04/24 14:04 IMPRESSION: 1. No evidence of deep venous thrombosis involving the left upper extremity. 2. Previously seen cephalic thrombophlebitis has near completely resolved Electronically signed by: Reinaldo Montes MD 10/04/2024 03:44 PM EDT RP Medications Medications Current Medications Acetaminophen (Acetaminophen 325 Mg Tablet) 650 mg PO Q6H PRN PRN Reason: Headache/Pain, Scale 1-10 Last Admin: 09/06/24 02:01 Dose: 650 mg Al Hydroxide/Mg Hydroxide (Magnesium Hydrox/Alum Hydrox 30 Ml Oral.Susp) 30 ml PO Q6H PRN PRN Reason: Heartburn/Nausea Last Admin: 08/17/24 21:50 Dose: 30 ml Albuterol/Ipratropium (Albuterol/Iprat 2.5/0.5mg 3 Ml Ampul.Neb) 3 ml INHALE QID PRN PRN Reason: Shortness of Breath Apixaban (Apixaban 5 Mg Tablet) 5 mg PO BID [facility] Stop: 10/08/24 08:59 Last Admin: 10/05/24 08:16 Dose: 5 mg Aripiprazole (Aripiprazole 5 Mg Tablet) 5 mg PO DAILY@1730 [facility] Last Admin: 10/04/24 16:56 Dose: 5 mg Ascorbic Acid (Ascorbic Acid 500 Mg Tablet) 500 mg PO DAILY [facility] Last Admin: 10/05/24 08:16 Dose: 500 mg Benzocaine (Throat Lozenge, Medicated Lozenge) 1 lozenge MUCOUS MEM Q2H PRN PRN Reason: Sore Throat Clozapine 100 mg/ Clozapine 50 (mg) 150 mg PO DAILY@1999 [facility] Last Admin: 10/04/24 20:01 Dose: 150 mg Divalproex Sodium (Divalproex Sodium Sprinkles 125 Mg Cap.) 500 mg PO DAILY@1999 [facility] Last Admin: 10/04/24 20:01 Dose: 500 mg Ferrous Sulfate (Ferrous Sulfate 324 Mg Tablet.) 324 mg PO DAILY [facility] Last Admin: 10/05/24 08:16 Dose: 324 mg Finasteride (Finasteride 5 Mg Tablet) 5 mg PO DAILY [facility] Last Admin: 10/05/24 08:16 Dose: 5 mg Ketamine HCl 500 mg/ Sodium (Chloride) 23.001 mls @ 23.001 mls/hr IV .Q1H [facility]; Protocol Stop: 10/03/24 08:29 Magnesium Hydroxide (Milk Of Magnesia 30 Ml Oral.Susp) 30 ml PO DAILY PRN PRN Reason: Constipation Last Admin: 09/17/24 15:15 Dose: 30 ml Mirtazapine (Mirtazapine 15 Mg Tablet) 15 mg PO BEDTIME [facility] Last Admin: 10/04/24 20:01 Dose: 15 mg Olanzapine (Olanzapine Odt 10 Mg Tab.Rapdis) 5 mg TRANSLINGU BID PRN PRN Reason: agitation Last Admin: 09/24/24 20:10 Dose: 5 mg Pramipexole Dihydrochloride (Pramipexole Di-Hcl 0.25 Mg Tablet) 0.5 mg PO TID [facility] Last Admin: 10/05/24 15:20 Dose: 0.5 mg Sertraline HCl (Sertraline Hcl 25 Mg Tablet) 75 mg PO DAILY [facility] Last Admin: 10/05/24 08:16 Dose: 75 mg Sodium Chloride (0.9 % Sodium Chloride Flush 10 Ml Syringe) 10 ml IVFLUSH QSHIFT [facility] Last Admin: 10/05/24 08:15 Dose: 10 ml Tamsulosin HCl (Tamsulosin Hcl 0.4 Mg Capsule) 0.8 mg PO BEDTIME [facility] Last Admin: 10/04/24 20:00 Dose: 0.8 mg Thiamine HCl (Thiamine Hcl 100 Mg Tablet) 100 mg PO DAILY [facility] Last Admin: 10/05/24 08:16 Dose: 100 mg Allergies Allergies Allergy/AdvReac Type Severity Reaction Status Date / Time No Known Allergies (NKA) Allergy Unknown NONE Verified 06/19/24 20:43 Assessment & Plan Assessment & Plan (1) Schizoaffective disorder: Status: Acute Code(s): F25.9 - Schizoaffective disorder, unspecified (2) Catatonia: Status: Acute Code(s): F06.1 - Catatonic disorder due to known physiological condition Plan Nonocclusive thrombus left cephalic vein Discuss case with Aldo who recommended 4 weeks of Eliquis which is ordered Elevate extremity Midline to be removed-we will defer decision to reinsert midline for ketamine treatments to psychiatry team. 09/10/2024 Ketamine scheduled for 2 days from today midline to be placed Eliquis ordered case for cephalic vein thrombosis being managed by hospitalist service 09/11/2024 Patient showing gradual improvement ketamine scheduled for tomorrow reinsertion of midline more alert improved engagement no hallucinations delusional material or aggression noted today still flat needs cuing aware of discharge planning ketamine scheduled for the morning continue clozapine sertraline Abilify per catatonia protocol 09/12/2024 Continue clozapine sertraline Abilify improvement noted discharge planning meeting scheduled 08/2024 Continue plan of care no change indicated [id number] time discharge planning meeting shortly has responded to weekly ketamine 09/14: Continue current regimen and plans 09/15: Continue current regimen and plans 09/16/24 Continue clozapine scheduled another ketamine treatment for this week discussed discharge planning and transition 09/19/2024 Patient tolerated ketamine well no less restrictive setting available. If unable to get ketamine outpatient will taper and discontinue patient with significant cognitive changes status post catatonia and ICU admission question etiology TSH B12 folate unremarkable 09/21 continue tx. 09/22 continue tx 09/23/2024 Continue ketamine treatment this week will then try and discontinue since not clear if can be continued as an outpatient. Check Depakote and ammonia level will try and keep Depakote on the lower side patient not manic will try to avoid over-sedation. Mirtazapine 15 mg increase per catatonia protocol continue dopamine agonist increase sertraline to 75 mg. Check repeat swallowing at bedside see if diet can be increased 09/24/2024 Continue plan of care monitor response to mirtazapine 15 sertraline 75 mg ketamine scheduled for 09/26/2024 09/27/2024: No changes to current plan i.e. maintain ketamine treatment 09/28: no changes 09/29: no changes. Otherwise Nursing worked with nursing timekeeper supervisor ref dressing/IV maintenace for ketamine treatment and dressing being overdue. 09/30 continue tx. 10/01 continue tx 10/02 continue tx. 10/03 continue current tx. 10/04/24: no changes, slept well, no appetite issues. No safety concern.. Observed some R hand tremor but per nursing it is normal baseline. Possible discharge next week on Monday. Patient educated on: medication risk/benefits Informed Consent: understands Reason for continued inpatient stay Substantial Risk for: med/psych decompensation Time Spent With Patient Time: Total time managing care of this patient today ____ minutes.
[2024-10-05 20:00] VITALS: BP 116/53; PULSE 70; RESP 16; TEMP 36.7; O2SAT 95
[2024-10-05] MEDS: Divalproex Sodium Sprinkles 125 MG CAP.DR.SPR 500 MG PO (20:44)
[2024-10-06] MEDS: 0.9 % Sodium Chloride Flush 10 ML SYRINGE IVFLUSH ×3 (00:35→17:00)
[2024-10-06 08:00] VITALS: BP 130/84; PULSE 90; RESP 16; TEMP 36.8; O2SAT 98
[2024-10-06] MEDS: Ferrous Sulfate 324 MG TABLET.DR PO (08:24)
--- NOTE | 2024-10-06 13:36 | HO.PSYCHPN ---
Subjective Subjective Date of Service: 10/06/24 Reason For Visit: catatonia Interim History: Medical record and nursing notes reviewed; case discussed during rounds with team/nursing staff, and met with patient for supportive therapy/psychoeducation, as well as medication management. Patient slept well, was medication compliant, denies side effects. Continue with hand tremors as usual and reports it makes me masturbate . Nursing her dressing change on right upper arm. Unkempt hair. Flat affect. Appeared to be more tired compared to yesterday Medication Compliance: Yes Side effects from medications: No Attending Groups: Intermittent Review of Systems Acute medical concerns: No Medical Review of Systems: unchanged Review of Systems Review of Systems Constitutional: Denies fatigue and Denies fever(s) Cardiovascular: Denies chest pain and Denies dyspnea Respiratory: Denies dyspnea Gastrointestinal: Denies abdominal pain Psychiatric: denies suicidal ideation Endocrine: Denies fatigue Yes all other systems are reviewed and are negative Mental Status Exam Mental Status Exam Narrative: Alert, oriented to place, month, year. No overt psychosis or delusional content denies auditory hallucination . Some degree of thought blocking continues , poverty of content. affect orozco can smile No SI/HI. No aggression towards self or others. Improved impulse control insight improving,. No SI/SIB/HI/AVH. vislbe, pleasant and cooperative Diagnostics Vital Signs (24Hr): Vital Signs - 24 hr 10/05/24 20:00 10/06/24 08:00 Temperature 98.1 F 98.2 F Pulse Rate 70 90 Respiratory Rate 16 16 Blood Pressure 116/53 L 130/84 Pulse Oximetry 95 98 Oxygen Delivery Method Room Air Room Air BMI result Body Mass Index 29.5 Labs 09/29/24 11:23 09/10/24 07:44 Imaging Radiology Impressions: ITS Impressions Venous Duplex 09/09/24 14:33 IMPRESSION: Nonocclusive thrombus, left cephalic vein. Electronically signed by: Mayank Irwin MD 09/09/2024 03:31 PM EDT RP Venous Duplex 10/04/24 14:04 IMPRESSION: 1. No evidence of deep venous thrombosis involving the left upper extremity. 2. Previously seen cephalic thrombophlebitis has near completely resolved Electronically signed by: Reinaldo Montes MD 10/04/2024 03:44 PM EDT RP Medications Medications Current Medications Acetaminophen (Acetaminophen 325 Mg Tablet) 650 mg PO Q6H PRN PRN Reason: Headache/Pain, Scale 1-10 Last Admin: 09/06/24 02:01 Dose: 650 mg Al Hydroxide/Mg Hydroxide (Magnesium Hydrox/Alum Hydrox 30 Ml Oral.Susp) 30 ml PO Q6H PRN PRN Reason: Heartburn/Nausea Last Admin: 08/17/24 21:50 Dose: 30 ml Albuterol/Ipratropium (Albuterol/Iprat 2.5/0.5mg 3 Ml Ampul.Neb) 3 ml INHALE QID PRN PRN Reason: Shortness of Breath Apixaban (Apixaban 5 Mg Tablet) 5 mg PO BID [facility] Stop: 10/08/24 08:59 Last Admin: 10/06/24 08:24 Dose: 5 mg Aripiprazole (Aripiprazole 5 Mg Tablet) 5 mg PO DAILY@1730 [facility] Last Admin: 10/05/24 17:33 Dose: 5 mg Ascorbic Acid (Ascorbic Acid 500 Mg Tablet) 500 mg PO DAILY [facility] Last Admin: 10/06/24 08:24 Dose: 500 mg Benzocaine (Throat Lozenge, Medicated Lozenge) 1 lozenge MUCOUS MEM Q2H PRN PRN Reason: Sore Throat Clozapine 100 mg/ Clozapine 50 (mg) 150 mg PO DAILY@1999 [facility] Last Admin: 10/05/24 20:44 Dose: 150 mg Divalproex Sodium (Divalproex Sodium Sprinkles 125 Mg Cap.Spr) 500 mg PO DAILY@1999 [facility] Last Admin: 10/05/24 20:44 Dose: 500 mg Ferrous Sulfate (Ferrous Sulfate 324 Mg Tablet.Dr) 324 mg PO DAILY [facility] Last Admin: 10/06/24 08:24 Dose: 324 mg Finasteride (Finasteride 5 Mg Tablet) 5 mg PO DAILY [facility] Last Admin: 10/06/24 08:23 Dose: 5 mg Ketamine HCl 500 mg/ Sodium (Chloride) 23.001 mls @ 23.001 mls/hr IV .Q1H [facility]; Protocol Stop: 10/03/24 08:29 Magnesium Hydroxide (Milk Of Magnesia 30 Ml Oral.Susp) 30 ml PO DAILY PRN PRN Reason: Constipation Last Admin: 09/17/24 15:15 Dose: 30 ml Mirtazapine (Mirtazapine 15 Mg Tablet) 15 mg PO BEDTIME [facility] Last Admin: 10/05/24 20:45 Dose: 15 mg Olanzapine (Olanzapine Odt 10 Mg Tab.Rapdis) 5 mg TRANSLINGU BID PRN PRN Reason: agitation Last Admin: 09/24/24 20:10 Dose: 5 mg Pramipexole Dihydrochloride (Pramipexole Di-Hcl 0.25 Mg Tablet) 0.5 mg PO TID [facility] Last Admin: 10/06/24 08:24 Dose: 0.5 mg Sertraline HCl (Sertraline Hcl 25 Mg Tablet) 75 mg PO DAILY [facility] Last Admin: 10/06/24 08:24 Dose: 75 mg Sodium Chloride (0.9 % Sodium Chloride Flush 10 Ml Syringe) 10 ml IVFLUSH QSHIFT [facility] Last Admin: 10/06/24 08:23 Dose: 10 ml Tamsulosin HCl (Tamsulosin Hcl 0.4 Mg Capsule) 0.8 mg PO BEDTIME [facility] Last Admin: 10/05/24 20:44 Dose: 0.8 mg Thiamine HCl (Thiamine Hcl 100 Mg Tablet) 100 mg PO DAILY [facility] Last Admin: 10/06/24 08:24 Dose: 100 mg Allergies Allergies Allergy/AdvReac Type Severity Reaction Status Date / Time No Known Allergies (NKA) Allergy Unknown NONE Verified 06/19/24 20:43 Assessment & Plan Assessment & Plan (1) Schizoaffective disorder: Status: Acute Code(s): F25.9 - Schizoaffective disorder, unspecified (2) Catatonia: Status: Acute Code(s): F06.1 - Catatonic disorder due to known physiological condition Plan Nonocclusive thrombus left cephalic vein Discuss case with Aldo who recommended 4 weeks of Eliquis which is ordered Elevate extremity Midline to be removed-we will defer decision to reinsert midline for ketamine treatments to psychiatry team. 09/10/2024 Ketamine scheduled for 2 days from today midline to be placed Eliquis ordered case for cephalic vein thrombosis being managed by hospitalist service 09/11/2024 Patient showing gradual improvement ketamine scheduled for tomorrow reinsertion of midline more alert improved engagement no hallucinations delusional material or aggression noted today still flat needs cuing aware of discharge planning ketamine scheduled for the morning continue clozapine sertraline Abilify per catatonia protocol 09/12/2024 Continue clozapine sertraline Abilify improvement noted discharge planning meeting scheduled 08/2024 Continue plan of care no change indicated [id number] time discharge planning meeting shortly has responded to weekly ketamine 09/14: Continue current regimen and plans 09/15: Continue current regimen and plans 09/16/24 Continue clozapine scheduled another ketamine treatment for this week discussed discharge planning and transition 09/19/2024 Patient tolerated ketamine well no less restrictive setting available. If unable to get ketamine outpatient will taper and discontinue patient with significant cognitive changes status post catatonia and ICU admission question etiology TSH B12 folate unremarkable 09/21 continue tx. 09/22 continue tx 09/23/2024 Continue ketamine treatment this week will then try and discontinue since not clear if can be continued as an outpatient. Check Depakote and ammonia level will try and keep Depakote on the lower side patient not manic will try to avoid over-sedation. Mirtazapine 15 mg increase per catatonia protocol continue dopamine agonist increase sertraline to 75 mg. Check repeat swallowing at bedside see if diet can be increased 09/24/2024 Continue plan of care monitor response to mirtazapine 15 sertraline 75 mg ketamine scheduled for 09/26/2024 09/27/2024: No changes to current plan i.e. maintain ketamine treatment 09/28: no changes 09/29: no changes. Otherwise Nursing worked with nursing grain and yeast plants supervisor ref dressing/IV maintenace for ketamine treatment and dressing being overdue. 09/30 continue tx. 10/01 continue tx 10/02 continue tx. 10/03 continue current tx. 10/04/24: no changes, slept well, no appetite issues. No safety concern.. Observed some R hand tremor but per nursing it is normal baseline. Possible discharge next week on Monday. 10/06/24: Dressing on right upper changed. Eat in dining area. Flat affect, no medication change. Mood is good . Unkempt hair. No safety concerns. Patient educated on: medication risk/benefits and therapeutic strategies Informed Consent: understands and further education needed Reason for continued inpatient stay Substantial Risk for: med/psych decompensation Time Spent With Patient Time: Total time managing care of this patient today ____ minutes.
[2024-10-06 19:26] VITALS: BP 139/76; PULSE 83; RESP 16; TEMP 37; O2SAT 96
[2024-10-06] MEDS: Divalproex Sodium Sprinkles 125 MG CAP.DR.SPR 500 MG PO (19:29)
[2024-10-07] MEDS: 0.9 % Sodium Chloride Flush 10 ML SYRINGE IVFLUSH ×2 (00:35→09:07)
[2024-10-07 08:00] VITALS: BP 129/69; PULSE 84; RESP 16; TEMP 36.8; O2SAT 97
[2024-10-07] MEDS: Ferrous Sulfate 324 MG TABLET.DR PO (09:10)
--- NOTE | 2024-10-07 09:15 | P.PNPSI_ITS ---
Subjective Subjective Date of Service: 10/07/24 Reason For Visit: catatonia Subjective Notes: Conditional Voluntary Healthcare Proxy: Yes Interim History: Pt slept through the night. he reports doing well. 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 He reports he is not hearing voices now. No SI/HI. constricted affect, no delay in response. taking medications, looking forward to discharge tomorrow. Medication Compliance: Yes Side effects from medications: No Diagnostics Vital Signs (24Hr): Vital Signs - 24 hr 10/06/24 19:26 10/07/24 08:00 Temperature 98.6 F 98.2 F Pulse Rate 83 84 Respiratory Rate 16 16 Blood Pressure 139/76 129/69 Pulse Oximetry 96 97 Oxygen Delivery Method Room Air Room Air BMI result Body Mass Index 29.5 Labs 09/29/24 11:23 09/10/24 07:44 Imaging Radiology Impressions: ITS Impressions Venous Duplex 09/09/24 14:33 IMPRESSION: Nonocclusive thrombus, left cephalic vein. Electronically signed by: Mayank Irwin MD 09/09/2024 03:31 PM EDT RP Venous Duplex 10/04/24 14:04 IMPRESSION: 1. No evidence of deep venous thrombosis involving the left upper extremity. 2. Previously seen cephalic thrombophlebitis has near completely resolved Electronically signed by: Reinaldo Montes MD 10/04/2024 03:44 PM EDT RP Medications Medications Current Medications Acetaminophen (Acetaminophen 325 Mg Tablet) 650 mg PO Q6H PRN PRN Reason: Headache/Pain, Scale 1-10 Last Admin: 09/06/24 02:01 Dose: 650 mg Al Hydroxide/Mg Hydroxide (Magnesium Hydrox/Alum Hydrox 30 Ml Oral.Susp) 30 ml PO Q6H PRN PRN Reason: Heartburn/Nausea Last Admin: 08/17/24 21:50 Dose: 30 ml Albuterol/Ipratropium (Albuterol/Iprat 2.5/0.5mg 3 Ml Ampul.Neb) 3 ml INHALE QID PRN PRN Reason: Shortness of Breath Apixaban (Apixaban 5 Mg Tablet) 5 mg PO BID KRISTIN Stop: 10/08/24 08:59 Last Admin: 10/07/24 09:11 Dose: 5 mg Aripiprazole (Aripiprazole 5 Mg Tablet) 5 mg PO DAILY@1730 [facility] Last Admin: 10/06/24 17:00 Dose: 5 mg Ascorbic Acid (Ascorbic Acid 500 Mg Tablet) 500 mg PO DAILY [facility] Last Admin: 10/07/24 09:11 Dose: 500 mg Benzocaine (Throat Lozenge, Medicated Lozenge) 1 lozenge MUCOUS MEM Q2H PRN PRN Reason: Sore Throat Clozapine 100 mg/ Clozapine 50 (mg) 150 mg PO DAILY@1999 [facility] Last Admin: 10/06/24 19:29 Dose: 150 mg Divalproex Sodium (Divalproex Sodium Sprinkles 125 Mg Cap..Spr) 500 mg PO DAILY@1999 [facility] Last Admin: 10/06/24 19:29 Dose: 500 mg Ferrous Sulfate (Ferrous Sulfate 324 Mg Tablet.Dr) 324 mg PO DAILY [facility] Last Admin: 10/07/24 09:10 Dose: 324 mg Finasteride (Finasteride 5 Mg Tablet) 5 mg PO DAILY [facility] Last Admin: 10/07/24 09:10 Dose: 5 mg Ketamine HCl 500 mg/ Sodium (Chloride) 23.001 mls @ 23.001 mls/hr IV .Q1H [facility]; Protocol Stop: 10/03/24 08:29 Magnesium Hydroxide (Milk Of Magnesia 30 Ml Oral.Susp) 30 ml PO DAILY PRN PRN Reason: Constipation Last Admin: 09/17/24 15:15 Dose: 30 ml Mirtazapine (Mirtazapine 15 Mg Tablet) 15 mg PO BEDTIME [facility] Last Admin: 10/06/24 19:30 Dose: 15 mg Olanzapine (Olanzapine Odt 10 Mg Tab.Rapdis) 5 mg TRANSLINGU BID PRN PRN Reason: agitation Last Admin: 09/24/24 20:10 Dose: 5 mg Pramipexole Dihydrochloride (Pramipexole Di-Hcl 0.25 Mg Tablet) 0.5 mg PO TID [facility] Last Admin: 10/07/24 09:11 Dose: 0.5 mg Sertraline HCl (Sertraline Hcl 25 Mg Tablet) 75 mg PO DAILY [facility] Last Admin: 10/07/24 09:11 Dose: 75 mg Sodium Chloride (0.9 % Sodium Chloride Flush 10 Ml Syringe) 10 ml IVFLUSH QSHIFT [facility] Last Admin: 10/07/24 09:07 Dose: 10 ml Tamsulosin HCl (Tamsulosin Hcl 0.4 Mg Capsule) 0.8 mg PO BEDTIME [facility] Last Admin: 10/06/24 19:30 Dose: 0.8 mg Thiamine HCl (Thiamine Hcl 100 Mg Tablet) 100 mg PO DAILY [facility] Last Admin: 10/07/24 09:11 Dose: 100 mg Allergies Allergies Allergy/AdvReac Type Severity Reaction Status Date / Time No Known Allergies (NKA) Allergy Unknown NONE Verified 06/19/24 20:43 Assessment & Plan Assessment & Plan (1) Schizoaffective disorder: Status: Acute Code(s): F25.9 - Schizoaffective disorder, unspecified (2) Catatonia: Status: Acute Code(s): F06.1 - Catatonic disorder due to known physiological condition Plan Nonocclusive thrombus left cephalic vein Discuss case with Aldo who recommended 4 weeks of Eliquis which is ordered Elevate extremity Midline to be removed-we will defer decision to reinsert midline for ketamine treatments to psychiatry team. 09/10/2024 Ketamine scheduled for 2 days from today midline to be placed Eliquis ordered case for cephalic vein thrombosis being managed by hospitalist service 09/11/2024 Patient showing gradual improvement ketamine scheduled for tomorrow reinsertion of midline more alert improved engagement no hallucinations delusional material or aggression noted today still flat needs cuing aware of discharge planning ketamine scheduled for the morning continue clozapine sertraline Abilify per catatonia protocol 09/12/2024 Continue clozapine sertraline Abilify improvement noted discharge planning meeting scheduled 08/2024 Continue plan of care no change indicated [id number] time discharge planning meeting shortly has responded to weekly ketamine 09/14: Continue current regimen and plans 09/15: Continue current regimen and plans 09/16/24 Continue clozapine scheduled another ketamine treatment for this week discussed discharge planning and transition 09/19/2024 Patient tolerated ketamine well no less restrictive setting available. If unable to get ketamine outpatient will taper and discontinue patient with significant cognitive changes status post catatonia and ICU admission question etiology TSH B12 folate unremarkable 09/21 continue tx. 09/22 continue tx 09/23/2024 Continue ketamine treatment this week will then try and discontinue since not clear if can be continued as an outpatient. Check Depakote and ammonia level will try and keep Depakote on the lower side patient not manic will try to avoid over-sedation. Mirtazapine 15 mg increase per catatonia protocol continue dopamine agonist increase sertraline to 75 mg. Check repeat swallowing at bedside see if diet can be increased 09/24/2024 Continue plan of care monitor response to mirtazapine 15 sertraline 75 mg ketamine scheduled for 09/26/2024 09/27/2024: No changes to current plan i.e. maintain ketamine treatment 09/28: no changes 09/29: no changes. Otherwise Nursing worked with nursing shoe repair supervisor ref dressing/IV maintenace for ketamine treatment and dressing being overdue. 09/30 continue tx. 10/01 continue tx 10/02 continue tx. 10/03 continue current tx. 10/04/24: no changes, slept well, no appetite issues. No safety concern.. Observed some R hand tremor but per nursing it is normal baseline. Possible discharge next week on Monday. 10/06/24: Dressing on right upper changed. Eat in dining area. Flat affect, no medication change. Mood is good . Unkempt hair. No safety concerns. 10/07 continue tx. d/c tomorrow. Reason for continued inpatient stay Substantial Risk for: inability to function Time Spent With Patient Time: Total time managing care of this patient today ____ minutes.
--- NOTE | 2024-10-07 10:54 | PM.EVENT ---
Event Note Date of Service: 10/07/24 Event Note: Patient is seen in follow up nonocclusive thrombus to left cephalic vein. Patient has been on Eliquis, ordered by Hematology for 4 weeks. A repeat ultrasound demonstrated near resolution. DC eliquis when complete, patient had 4 week course. Patient had a midline in the left arm which was removed, subsequently placed in the right arm. Patient to be discharged tomorrow, prior to discharge his midline should be removed. Midline originally inserted due to poor venous access. Time Spent With Patient Time: Total time managing care of this patient today ____ minutes. Exam Const Constitutional General: cooperative, no acute distress and alert Orientation/consciousness: oriented to person, oriented to place and oriented to time Resp Effort & Inspection: normal respiratory effort and able to speak in complete sentences Cardio Rate: regular rate Rhythm: regular rhythm Heart sounds: S1 normal heart sound present and S2 normal heart sound present GI Inspection (GI): normal to inspection Auscultation: normal bowel sounds Skin General skin exam: no rashes or lesions noted Neuro General: Yes oriented to person, Yes oriented to place and Yes oriented to time Cranial nerves: Yes CN's II-XII intact bilaterally Extrem General: normal to inspection and no pedal edema Psych Affect: normal affect Attitude: cooperative ROS Narrative ROS Narrative ROS Narrative: Denies any shortness of breath, chest pain, dizziness, abdominal pain, dysuria.
--- NOTE | 2024-10-07 13:51 | PC.NURSE ---
RN received order to remove mid-line from upper right arm. No concerns noted or reported during removal of mid-line. No s&s of infection. Entry covered with gauze and taped securely. Wound not bleeding at time of removal.
[2024-10-07 19:26] VITALS: BP 145/72; PULSE 85; RESP 16; TEMP 2.5; TEMP 36.5; O2SAT 96
[2024-10-07] MEDS: Divalproex Sodium Sprinkles 125 MG CAP.DR.SPR 500 MG PO (19:28)
[2024-10-08 07:59] VITALS: BP 134/67; PULSE 90; RESP 16; TEMP 36.9; O2SAT 97
[2024-10-08] MEDS: Ferrous Sulfate 324 MG TABLET.DR PO (08:01)
--- NOTE | 2024-10-08 08:43 | P.DS_ITS ---
DS: Providers Provider Date of Service: 10/08/24 Date of admission: 08/07/24 14:39 Date of discharge: 10/08/24 Primary care physician: Unknown Physician Consults: 08/07/24 16:48 Consult to Hospitalist Routine Comment: can wait for am Consulting Provider: Isha Ferrari Reason For Exam: ? buttocks fold ? dti vs fungal 08/09/24 14:48 Consult to Neurology Routine Consulting Provider: [facility] Reason for consultation: inc tremor r arm stiffness recent catatonia Has provider been notified: No 09/02/24 09:25 Consult to Neurology Routine Consulting Provider: [facility] Reason for consultation: f/u consult see pt note ? r foot drop 09/09/24 19:40 Consult to Hospitalist Stat Comment: Consulting Provider: [facility] Reason For Exam: upper extremity thrombus Discharging clinician: Dahiana Haney DS: Diagnosis Discharge Diagnosis (1) Schizoaffective disorder: Status: Acute (2) Catatonia: Status: Acute DS: Medications Discharge Medications Home Medications: Previous Rx's ?Medication ?Instructions ?Recorded acetaminophen 325 mg tablet 650 mg (2 x 325 mg) PO Q6H PRN 10/08/24 Headache/Pain, Scale 1-10 #60 tabs apixaban 5 mg tablet (Eliquis) 5 mg PO BID #60 tabs aripiprazole 5 mg tablet (Abilify) 5 mg PO DAILY@1730 #30 tabs 10/08/24 ascorbic acid (vitamin C) 500 mg 500 mg PO DAILY #30 t abs 10/08/24 tablet (Vitamin C) clozapine 50 mg tablet 150 mg (3 x 50 mg) PO DAILY@ 199910/08/24 #90 tabs divalproex 125 mg capsule,delayed 500 mg (4 x 125 mg) PO DAILY@199910/08/24 release sprinkle #120 caps ferrous sulfate 324 mg (65 mg 324 mg PO DAILY #30 tabs 10/08/24 iron) tablet,delayed release finasteride 5 mg tablet 5 mg PO DAILY #30 tabs 10/08 mirtazapine 15 mg tablet 15 mg PO BEDTIME #30 tabs olanzapine 10 mg disintegrating 5 mg (1/2 x 10 mg) tra nslingual 10/08/24 tablet BID PRN agitation #60 tabs pramipexole 0.5 mg tablet 0.5 mg PO TID #90 tabs 10/08 sertraline 25 mg tablet 75 mg (3 x 25 mg) PO DAILY # 90 tabs 10/08/24 tamsulosin 0.4 mg capsule 0.8 mg (2 x 0.4 mg) PO BEDTI ME #60 10/08/24 caps thiamine mononitrate (vit B1) 100 100 mg PO DAILY #30 tabs 10/08/24 mg tablet Mental Status Exam Mental Status Exam Narrative: Alert, oriented x3. He is casually groomed, good hygiene, in NAD. Behavior: cooperative and friendly. Psychomotor: perioral involuntary movement, resting tremor. Speech: clear, very mild delay in response, spontaneous. TP: looking forward to be discharged. TC: feeling better Mood: good Affect: constricted, but congruent SI: none HI: none VH/AH: no overt signs Delusions: no overt delusional content Insight/judgment: poor x 2. Memory/cog: alert, oriented x 3. Data Data Completed and Pending Completed studies during hospitalization [Text1]: 08/14/24 Unknown Urine clean catch - Clean Catch Midstream Urine Culture - Final Escherichia coli Imaging Diagnostic Imaging Impressions Venous Duplex 09/09/24 14:33 IMPRESSION: Nonocclusive thrombus, left cephalic vein. Electronically signed by: Mayank Irwin MD 09/09/2024 03:31 PM EDT RP Venous Duplex 10/04/24 14:04 IMPRESSION: 1. No evidence of deep venous thrombosis involving the left upper extremity. 2. Previously seen cephalic thrombophlebitis has near completely resolved Electronically signed by: Reinaldo Montes MD 10/04/2024 03:44 PM EDT RP DS: Summary Hospital Course Hospital Course: Mr. Tenorio is a 59 year-old male with hx of schizoaffective disorder who was initially brought to [facility] [place] due to worsening of catatonia on 06/21/2024. He had last outpatient ECT on 06/17/2024. Clozaril levels taken on day he arrived to the hospital to be close to zero, which prompted concern for clozaril withdrawal catatonia. He had one more ECT treatment while inpatient on 07/15/24, however, there was concern in terms of poor respiratory effort, increase sedation and aspiration pneumonia. He received steroids for suspected pneumonitis and pt became more disorganized and with s/s suggestive of excitatory catatonia. He was transferred to ICU on 07/17 where he was intubated and extubated following day on 07/18. He did have aspiration pneumonia and was started on antibiotics. He started ketamine treatment for treatment resistant catatonia in light of poor response to ECT and benzodiazepines on 07/19. He was transferred back to the psychiatric unit on 08/07/2024 until day of discharge on 10/08/2024. He received a total of 10 ketamine infusions of 500mg infused over an hour. In terms of medications, he was restarted on clozapine titrated to 150mg at be dtime. He was also started on abilify to augment antipsychotic effect. He was started on sertraline 75mg po daily. He was started on pramipexole 0.5mg po TID for mood/constricted affect/catatonia as well as parkinsonism. He was also started on depakote 500mg po qhs. He does have involuntary perioral movement and resting tremor on upper extremity more pronounced on right side. He had cephalic vein thrombus s/s to IV insertion and was started on eliquis, which was discontinued once doppler showed complete resolution of thrombus. His affect gradually presented as brighter, he was more spontaneous when talking. He gradually presented without overt delusions or psychosis. He was sleeping and eating well. 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 not stabilizing with ect. Above meds were part of catatonia protocal not responding to lorazepam or ect. He has responded to iv ketamine 0.5 mg/kg weekly over past few weeks Status at Discharge Cognitive/behavioral status at discharge: Pt with constricted affect at baseline but brighter. No SI/HI. No overt psychosis or delusional content. sleeping and eating well. taking medications as prescribed. Functional status at discharge: independent ambulation Overall status at discharge: patient is back to baseline Time Spent with Patient Time attestation: Total time managing care of this patient today ___45_ minutes. Time spent: Greater than 30 minutes Discharge Plan Discharge Anticipated Discharge Date/Time: 10/08/24 08:28 Patient Disposition: Home, Self-Care Discharge Diagnosis: Schizophrenia Referrals: [facility] ACCS Team [Other] - 1 Week Referral Note: Follow up with ACCS team as needed. [facility] [Other] - 10/08/24 12:00 pm Referral Note: Transfer to senior living on 10/08/24. Your team will reevaluate after 3 months for next steps. [facility] [Other] - 10/14/24 2:00 pm Referral Note: Your next therapy appointment and comprehensive assessment is scheduled for 10/14/24 at 2PM. [facility] [Other] - 10/14/24 Referral Note: You have been referred for outpatient Ketamine treatment. You are scheduled for your first appointment Saturday 10/14. [facility] to provide transpor tation to and from the appointment. [facility] [Other] - 10/10/24 11:20 am Referral Note: Your next medication management appointment is scheduled for 10/10/24 at 11:20am at [facility] [address] [place] [address] location. Jonn Smith MD [Physician, Internal Medicine] - 10/25/24 2:30 pm Referral Note: Discharge Medications: New acetaminophen 325 mg Tablet 650 mg PO Q6H PRN (Reason: Headache/Pain, Scale 1-10) Qty: 60 0RF tamsulosin 0.4 mg Capsule 0.8 mg PO BEDTIME Qty: 60 0RF aripiprazole [Abilify] 5 mg Tablet 5 mg PO DAILY@1730 Qty: 30 0RF divalproex 125 mg Capsule, Delayed Rel Sprinkle 500 mg PO DAILY@1999 Qty: 120 0RF clozapine 50 mg Tablet 150 mg PO DAILY@1999 Qty: 90 0RF olanzapine 10 mg Tablet,Disintegrating 5 mg translingual BID PRN (Reason: agitation) Qty: 60 0RF mirtazapine 15 mg Tablet 15 mg PO BEDTIME Qty: 30 0RF pramipexole 0.5 mg tablet 0.5 mg PO TID Qty: 90 0RF ascorbic acid (vitamin C) [Vitamin C] 500 mg Tablet 500 mg PO DAILY Qty: 30 0RF sertraline 25 mg Tablet 75 mg PO DAILY Qty: 90 0RF finasteride 5 mg Tablet 5 mg PO DAILY Qty: 30 0RF thiamine mononitrate (vit B1) 100 mg Tablet 100 mg PO DAILY Qty: 30 0RF ferrous sulfate 324 mg (65 mg iron) tablet,delayed release (DR/EC) 324 mg PO DAILY Qty: 30 0RF sennosides-docusate sodium [Senna with Docusate Sodium] 8.6-50 mg tablet 1 tab-cap PO BID PRN (Reason: no BM for more than 3days) Qty: 60 0RF Discontinued tamsulosin 0.4 mg Capsule 0.8 mg PO BEDTIME Qty: 1 0RF divalproex 250 mg Tablet,Delayed Release (Dr/Ec) 250 mg PO BID Qty: 1 0RF olanzapine 10 mg Tablet,Disintegrating 5 mg translingual BID PRN (Reason: aggitation) Qty: 1 0RF clozapine 25 mg Tablet 75 mg PO BEDTIME Qty: 1 0RF lorazepam 1 mg Tablet 1 mg PO TID Qty: 1 0RF memantine 5 mg Tablet 5 mg PO BID Qty: 1 0RF melatonin 3 mg Tablet 6 mg PO BEDTIME Qty: 1 0RF finasteride 5 mg Tablet 5 mg PO DAILY Qty: 1 0RF enoxaparin 40 mg/0.4 mL Syringe 40 mg subcut Q24H Qty: 4 0RF Discharge Orders: Discharge Order (Routine); Ordered 10/08/24 Ordered By: Dahiana Haney Diet: Regular diet Activity on Discharge: As tolerated Stand Alone Forms: Patient Portal Discharge page, Community Support Print Language: Portuguese Care Plan Goals: 1. Maintain mood 2. No SI/HI 3. Less VH/AH 4. No overt delusional content. Health Concerns: 1. Follow up with PCP for routine care Plan of Treatment: 1. Take medications as prescribed 2. Go to nearest ED or call 911 in event of emergency Assessment: pt with constricted, but stable affect. No SI/HI. No overt psychosis or delusions. Sleeping well. No aggression towards self or others. Discharge Date/Time: 10/08/24 12:20
== END 2024-10-08 12:20 | disposition home or self-care (01) | DRG 885 ==
PROVIDERS: Nurse Practitioner Family; Physician Assistant; Psychiatry & Neurology Psychiatry; Registered Nurse; Social Worker; Student in an Organized Health Care Education/Training Program; Admitting Provider Psychiatry & Neurology Psychiatry; Visit Provider Psychiatry & Neurology Psychiatry
DX: F20.9 Schizophrenia, unspecified (principal); R45.851 Suicidal ideations; G21.9 Secondary parkinsonism, unspecified; N39.0 Urinary tract infection, site not specified; I82.612 Acute embolism and thrombosis of superficial veins of left upper extremity; I10 Essential (primary) hypertension; D50.9 Iron deficiency anemia, unspecified; F06.1 Catatonic disorder due to known physiological condition; N40.1 Benign prostatic hyperplasia with lower urinary tract symptoms; R13.10 Dysphagia, unspecified; L30.4 Erythema intertrigo; L89.156 Pressure-induced deep tissue damage of sacral region; R33.8 Other retention of urine; Z79.899 Other long term (current) drug therapy
CPT/HCPCS: 36410; 36415; 71046; 80048; 80053; 80061; 80159; 80164; 81001; 82140; 82607; 82728; 82746; 82947; 83036; 83540; 84443; 85025; 85027; 85048; 87086; 87088; 87186; 92526; 93971; 94640; 97112; 97116; 97162; 97163; 97530; C1751; C1894; J0696; J1642

== ENCOUNTER 2024-08-07 14:39 | Outpatient (BNV) | payer MEDICARE, MEDICAID, SELFPAY | END 2024-10-04 14:04 | PROVIDERS: Admitting Provider Psychiatry & Neurology Psychiatry; Visit Provider Radiology Diagnostic Radiology | DX: I82.612 Acute embolism and thrombosis of superficial veins of left upper extremity (principal) | CPT/HCPCS: 93971 ==

== ENCOUNTER 2024-08-07 14:39 | Outpatient (BNV) | payer MEDICARE, MEDICAID, SELFPAY | END 2024-08-14 16:30 | PROVIDERS: Admitting Provider Psychiatry & Neurology Psychiatry; Visit Provider Radiology Diagnostic Radiology | DX: M25.78 Osteophyte, vertebrae (principal) | CPT/HCPCS: 71046 ==

== ENCOUNTER → 2024-08-07 14:39 | Outpatient (BNV) | payer MEDICARE, MEDICAID, SELFPAY | PROVIDERS: Admitting Provider Psychiatry & Neurology Psychiatry; Visit Provider Psychiatry & Neurology Psychiatry | DX: F25.1 Schizoaffective disorder, depressive type (principal); F06.1 Catatonic disorder due to known physiological condition; N39.0 Urinary tract infection, site not specified | CPT/HCPCS: 99231; 99232 ==

== ENCOUNTER → 2024-08-07 14:39 | Outpatient (BNV) | payer MEDICARE, MEDICAID, SELFPAY | PROVIDERS: Admitting Provider Psychiatry & Neurology Psychiatry; Visit Provider Nurse Practitioner Family | DX: N39.0 Urinary tract infection, site not specified (principal); D50.9 Iron deficiency anemia, unspecified | CPT/HCPCS: 99221; 99222; 99232; 99499 ==

== ENCOUNTER → 2024-08-07 14:39 | Outpatient (BNV) | payer MEDICARE, MEDICAID, SELFPAY | PROVIDERS: Admitting Provider Psychiatry & Neurology Psychiatry; Visit Provider Psychiatry & Neurology Psychiatry | DX: F25.9 Schizoaffective disorder, unspecified (principal); F06.1 Catatonic disorder due to known physiological condition; R33.9 Retention of urine, unspecified; G24.01 Drug induced subacute dyskinesia | CPT/HCPCS: 90792 ==

== ENCOUNTER → 2024-08-07 14:39 | Outpatient (BNV) | payer MEDICARE, MEDICAID, SELFPAY | PROVIDERS: Admitting Provider Psychiatry & Neurology Psychiatry; Visit Provider Psychiatry & Neurology Neurology | DX: G21.9 Secondary parkinsonism, unspecified (principal) | CPT/HCPCS: 99222 ==

== ENCOUNTER 2024-10-25 14:49 | Outpatient (AMB) | payer MEDICARE, MEDICAID, SELFPAY ==
--- OUTSIDE RECORDS SUMMARY | 2024-10-25 14:52 | XMS_ITS | Patient Health Record ---
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 (Z79.84) Active confirmed Plan Of Treatment Future Test Test Name Order Date COLONOSCOPY 05/19/2021 Insurance Providers Payer Name Payer Address Payer Phone Subscriber Number Group Number Insured Name Patient Relationship to Insured Coverage Start Date Coverage End Date MEDICARE OF [place] [address] [place] [id number] MULUGETA ALVAREZ Self - patient is the insured MEDICAID OF [facility] [address] [place] [phone] [id number] MULUGETA ALVAREZ Self - patient is the insured Medical (General) History Medical History History ICD Code diabetes mellitus hypertension schizophrenia BPH Surgical History Surgery Date(Month/Year)
--- NOTE | 2024-10-25 14:57 | A.OFFPC_ITS ---
Vital Signs 10/25/24 15:00 Weight 198 lb BP 144/70 H Blood Pressure Location Lt brachial Position Sitting Pulse 76 Temp 97.1 F Pulse Oximetry (%) 97 Intake Visit Reasons: [facility] 10/07 Critical Care Rn Required: No Accompanied by: Traffic Signal Mechanic Allergies No Known Allergies (NKA) Allergy (Unknown, Verified 10/25/24 14:57) NONE Tobacco use date assessed: 10/25/24 Dental Screening Dental Screen Date: 10/25/24 Did you have a dental visit in the last 12 months?: No Did you have a dental problem in the last 6 months where you did not have access to dental care?: No Was dental information given to patient?: No HPI HPI Comments History of Present Illness Details 59 y/o Male patient who presents to the clinic today for HDF. Pt was admitted at [facility] on 07/2024 - 10/08/24 for an evaluation and treatment of Catatonia and Schizoaffective disorder. He lives in a intermediate - and follows with [facility]. [facility] Medical History (Updated 10/16/24 @ 00:03 by Alex Saunders) Tardive dyskinesia Hospital discharge follow-up Mild sleep apnea Nocturnal hypoxia Routine medical exam Joint inflammation of right hand and wrist Status post fall Adult general medical exam Screening for colon cancer Screening for prostate cancer Cough BPH (benign prostatic hyperplasia) Surgical History History of colonoscopy (~06/15/21) History of tooth extraction History of root canal procedure Family History Mother Cancer Father Kidney agenesis Social History (Updated 10/25/24 @ 15:02 by Poornima Aponte MA) Household Members: Family Caregiver staying overnight: Yes Housing: Apartment Are you a primary post acute care registered nurse to a significant other at home: No Do you presently have visiting nurse or other home services: Yes Unable to assess alcohol history related to: Unable to respond Alcohol intake: former Comment: 5 min Patient Tobacco Use Status: Never used Tobacco e-Cigarette/Vaping Use: Never Used Second Hand Smoke Exposure: No service: No Current occupational status: employed Sexual orientation: Straight/Heterosexual Cognitive needs: No Hearing needs: No Vision needs: No Questionnaire Thrive Questionnaire Date Thrive assessed: 10/25/24 JONAH-7 AMB Questionnaire JONAH-7 Date JONAH - 7 assessed: 10/25/24 Source: Developed by Drs. Jacob Bates, Farrah Scott, Jose Martin Powell and colleagues, with an educational brigid from [employer]. Review of Systems Const All systems reviewed & are unremarkable except as noted in HPI and below Physical exam (Primary Care) Vital Signs: Last Vital Signs Temp 97.1 F 10/25/24 15:00 Pulse 76 10/25/24 15:00 BP 144/70 H 10/25/24 15:00 Pulse Ox 97 10/25/24 15:00 Tobacco/Smoking Status: Tobacco use Status Tobacco use date assessed 10/25/24 10/25/24 15:06 Patient Tobacco Use Status Never used Tobacco 10/25/24 15:06 e-Cigarette/Vaping Use Never Used 10/25/24 15:06 Thrive Assessment: Date of Thrive Assessment Date Thrive assessed 10/25/24 10/25/24 15:06 Const General: no acute distress Nutritional Appearance: well nourished Resp Effort & Inspection: normal respiratory effort Cardio Heart sounds: S1 normal heart sound present and S2 normal heart sound present Psych Appearance: well kempt Affect: Other affect and mood findings present (Flat affect) Coding Level of Care Code Est Pt Level 4 (91119) Diagnoses Schizoaffective disorder F25.9 Time Spent (min) 20 Assessment & Plan Assessment & Plan (1) Schizoaffective disorder: Code(s): F25.9 - Schizoaffective disorder, unspecified Category: Medical Plan: Managed by [facility].
[2024-10-25 15:00] VITALS: BP 144/70; PULSE 76; TEMP 36.2; O2SAT 97
== END 2024-10-25 15:39 | disposition home or self-care (01) ==
LOC: HO.HMCH 14:50
PROVIDERS: PCP Internal Medicine; Visit Provider Nurse Practitioner Family
DX: F25.9 Schizoaffective disorder, unspecified (principal)

== ENCOUNTER → 2024-10-25 14:49 | Outpatient (BNVA) | payer MEDICARE, MEDICAID, SELFPAY | PROVIDERS: PCP Internal Medicine; Visit Provider Nurse Practitioner Family | DX: F25.9 Schizoaffective disorder, unspecified (principal) | CPT/HCPCS: 99212 ==

== ENCOUNTER 2024-10-27 19:07 | Inpatient (IN) | payer MEDICARE, MEDICAID, SELFPAY ==
--- NOTE | ~2024-10-27 | CT_ITS ---
CLINICAL HISTORY: change mental status CT head without contrast Comparison: MR/[place] - MR HEAD/BRAIN WO CON - 07/18/24 10:[address]/[place] - CT HEAD/BRAIN WO IV CON - 02/13/24 14:54 EST Findings: Mild motion artifact present. No intracranial mass, midline shift, hydrocephalus, or acute hemorrhage. Mild mucosal thickening present at the left sphenoid sinus. The bilateral mastoid air cells appear clear. No acute skull fracture. Impression: 1. Mildly motion limited exam. No acute intracranial abnormality or acute intracranial hemorrhage identified given the exam limitations. This document has been electronically signed by: Julio Albarran MD on 10/27/2024 23:08:56
--- NOTE | ~2024-10-27 | IR_ITS ---
CLINICAL HISTORY: Need for long-term intravenous therapy PROCEDURES: 1. Exchange of a left arm single-lumen midline for a single lumen 5 [place] PICC line. CLINICIANS: Doug Contreras NP MEDICATIONS: -Lidocaine: 3 mL -Antibiotics: None. Complications: None. Estimated blood loss: <5 ml Specimens: None. Contrast: None. Fluoroscopy time: 1.3 min Procedure note: The procedure, risks, benefits, and alternatives were carefully explained to the patient and written informed consent was obtained. The patient was placed supine on the fluoroscopy table. A timeout was performed. The left arm was prepped and draped in usual sterile fashion. Using fluoroscopic guidance, a 0.018 inch wire was inserted into the midline until in the inferior vena cava. Measurements were then obtained. The PICC line was cut to an appropriate length. The wire was then reinserted. The pre-existing midline was removed without difficulty. Peel-away sheath was inserted over the wire and then a 5 fr, 55 cm, single lumen power PICC was advanced over the wire, with its tip in the the cavoatrial junction. The wire was removed. The catheter was tested and secured with a StatLock dressing. A permanent ultrasound image and chest fluoroscopic image was saved to PACS. The patient was stable after the procedure and was transferred to the floor. FINDINGS: 1. Successful exchange of a single-lumen midline to a 5 [place] PICC line. IR/IR cvc insert peripheral IMPRESSION: Exchange of midline to a 5 fr 55 cm, dual lumen power PICC PLAN: -The catheter may be used immediately. This procedure was performed by Doug Contreras NP, and directly supervised by Aly Carr M.D. Electronically signed by: Aly Carr MD 12/12/2024 11:36 AM EDT Workstation: [id number]
--- NOTE | ~2024-10-27 | XR_ITS ---
EXAMINATION: XR ABDOMEN KUB CLINICAL INDICATION: constipation COMPARISON: July 03, 2024 TECHNIQUE: AP view of the abdomen. FINDINGS: A large amount of stool is again noted throughout the colon. Bilateral acetabular roof osteophytes present. 2 views of the surface of the right hemipelvis. XR/XR KUB IMPRESSION: Again seen is a large amount of stool throughout the colon and rectum. Electronically signed by: Jose J Gonzalez MD 10/28/2024 05:20 PM EDT
--- NOTE | ~2024-10-27 | XR_ITS ---
CLINICAL HISTORY: change mental status 1 view chest x-ray. Comparison: CR - XR CHEST 2V - 08/14/24 17:11 EDT Findings: No consolidation, pneumothorax, or effusion. Heart size normal. Impression: 1. No acute cardiopulmonary process. No focal pulmonary consolidation. This document has been electronically signed by: Julio Albarran MD on 10/27/2024 21:35:01
[2024-10-27 19:21] VITALS: BP 130/60; BP 144/77; PULSE 90; PULSE 93; RESP 18; TEMP 37.2; O2SAT 93; O2SAT 96; BMI 28.5
[2024-10-27 19:22] VITALS: BP 144/77; PULSE 93; RESP 18; TEMP 37.2; O2SAT 93
--- NOTE | 2024-10-27 19:34 | ECG_ITS ---
Test Reason : AMS Blood Pressure : */* mmHG Vent. Rate : 91 BPM Atrial Rate : 91 BPM P-R Int : 144 ms QRS Dur : 76 ms QT Int : 338 ms P-R-T Axes : 54 28 57 degrees QTcB Int : 415 ms Normal sinus rhythm Normal ECG When compared with ECG of 20-Jun-2024 05:07, No significant change was found Referred By: Generic ED Physician Electronically Signed By: RY HERRMANN
--- NOTE | 2024-10-27 20:13 | PC.NURSE ---
Addendum entered by Aimee Salamanca RN 10/27/24 20:37: 20g IV line placed in LAC by FAITH Nguyen. Labs and 1st set of cultures drawn off line due to one operations and maintenance technican on the floor at this time. Original Note: PT difficult stick. Requesting assistance of PA for US IV
--- NOTE | 2024-10-27 20:14 | ED_ITS ---
HPI - Altered Mental Status General Chief Complaint: Altered Mental Status Stated Complaint: unable to care for himself Time Seen by Provider: 10/27/24 20:03 Source: patient, EMS and old records reviewed Mode of arrival: EMS Limitations: altered mental status History of Present Illness ED Provider: DR. Benson HPI narrative: 59-year-old male with PMH of HTN, T2 DM, schizoaffective disorder, depression, catatonia, history of psychiatric hospitalization, patient brought in by EMS from a shelter after noticed to have change mental status, patient was found wandering in the street soaked in urine patient is non historian able to regards examiner but not answering any questions, Patient had a history of schizoaffective disorder and catatonia in the past as per old record. Related Data Previous Rx's ?Medication ?Instructions ?Recorded acetaminophen 325 mg tablet 650 mg (2 x 325 mg) PO Q6H PRN 10/08/24 Headache/Pain, Scale 1-10 #60 tabs aripiprazole 5 mg tablet (Abilify) 5 mg PO DAILY@1730 #30 tabs 10/08/24 ascorbic acid (vitamin C) 500 mg 500 mg PO DAILY #30 t abs 10/08/24 tablet (Vitamin C) clozapine 50 mg tablet 150 mg (3 x 50 mg) PO DAILY@ 199910/08/24 #90 tabs divalproex 125 mg capsule,delayed 500 mg (4 x 125 mg) PO DAILY@199910/08/24 release sprinkle #120 caps finasteride 5 mg tablet 5 mg PO DAILY #30 tabs 10/08 mirtazapine 15 mg tablet 15 mg PO BEDTIME #30 tabs olanzapine 10 mg disintegrating 5 mg (1/2 x 10 mg) tra nslingual 10/08/24 tablet BID PRN agitation #60 tabs pramipexole 0.5 mg tablet 0.5 mg PO TID #90 tabs 10/08 sertraline 25 mg tablet 75 mg (3 x 25 mg) PO DAILY # 90 tabs 10/08/24 tamsulosin 0.4 mg capsule 0.8 mg (2 x 0.4 mg) PO BEDTI ME #60 10/08/24 caps thiamine mononitrate (vit B1) 100 100 mg PO DAILY #30 tabs 10/08/24 mg tablet ferrous sulfate 324 mg (65 mg 324 mg PO DAILY #30 tabs 10/09/24 iron) tablet,delayed release sennosides 8.6 mg-docusate sodium 1 tab-cap PO BID PRN no BM for 10/09/24 50 mg tablet (Senna with Docusate more than 3days #60 tabs Sodium) polyethylene glycol 3350 17 gram 17 g PO DAILY #14 ea 10/19/24 oral powder packet (Miralax) magnesium hydroxide 400 mg/5 mL 5 ml PO BEDTIME #500 m L 10/21/24 oral suspension (Milk of Magnesia) Allergies Allergy/AdvReac Type Severity Reaction Status Date / Time No Known Allergies (NKA) Allergy Unknown NONE Verified 10/27/24 19:26 Review of Systems 2 Review of Systems: All other systems are reviewed and are negative Constitutional: Reports as per HPI and Reports no additional constitutional complaints Eyes: Reports as per HPI and Reports no additional eye complaints Reports system reviewed and no additional complaints, except as documented Cardiovascular: Reports as per HPI and Reports no additional cardiovascular complaints Respiratory: Reports as per HPI and Reports no additional respiratory complaints Gastrointestinal: Reports as per HPI and Reports no additional gastrointestinal complaints Genitourinary: Reports no additional female genitourinary complaints Musculoskeletal: Reports no additional musculoskeletal complaints Skin/Breast: Reports system reviewed and no additional complaints, except as docu Psychiatric: Reports no additional psychiatric complaints Endocrine: Reports no additional endocrine complaints Hematologic/Lymphatic: Reports no additional hematologic/lymphatic complaints Allergic/Immunologic: Reports no additional allergic/immunologic complaints Reports system reviewed and no additional complaints, except as documented and Reports Abnormal speech present [facility] Past Medical History Medical History Tardive dyskinesia Hospital discharge follow-up Mild sleep apnea Nocturnal hypoxia Routine medical exam Joint inflammation of right hand and wrist Status post fall Adult general medical exam Screening for colon cancer Screening for prostate cancer Cough BPH (benign prostatic hyperplasia) Surgical History History of colonoscopy (~06/15/21) History of tooth extraction History of root canal procedure Family History Family History Mother Cancer Father Kidney agenesis Social History Social History Household Members: Family Housing: Apartment Are you a primary laboratory animal care veterinarian to a significant other at home: No Do you presently have visiting nurse or other home services: Yes Unable to assess alcohol history related to: Unable to respond Alcohol intake: former Comment: 5 min Patient Tobacco Use Status: Never used Tobacco e-Cigarette/Vaping Use: Never Used Second Hand Smoke Exposure: No Advance Directives: No Advance Directives Information Provided: Yes Do you have a plan to hurt others: No Plan service: No Current occupational status: employed Sexual orientation: Straight/Heterosexual Cognitive needs: No Hearing needs: No Vision needs: No Physical Exam ED Vital Signs: Vital Signs - 24 hr 10/27/24 19:21 10/27/24 19:22 10/27/24 22:31 Temperature 98.9 F 98.9 F 98.2 F Pulse Rate 93 93 87 Respiratory Rate 18 18 15 Blood Pressure 144/77 H 144/77 H 138/79 Pulse Oximetry 93 93 94 Oxygen Delivery Method Room Air Room Air Room Air 10/28/24 01:55 10/28/24 07:58 Temperature 98.4 F Pulse Rate 78 81 Respiratory Rate 11 L 16 Blood Pressure 139/79 135/57 L Pulse Oximetry 93 96 Oxygen Delivery Method Room Air Room Air BMI result Body Mass Index 28.5 Vital signs have been reviewed and appear to be correct. Blood pressure elevated. Heart rate normal. Respiratory rate normal. Temperature normal. Oxygen saturation normal. Appearance: Alert. Regards examiner able to say ?hi ?otherwise unable to answer any question.. No acute distress. Head: Normal external exam. Normocephalic. Atraumatic. No C[place] signs noted. No raccoon eyes noted Eyes: PERRLA. EOMI. Conjunctiva and sclera normal. Eyelids normal. ENT: TM's Normal. Pharynx normal. Uvula midline. Moist mucous membranes. No trismus noted. No drooling noted. No muffled voice noted. Neck: Normal inspection. Neck supple. FROM. No adenopathy. Thyroid Normal. No meningeal signs. No neck mass noted. CVS: Normal heart rate and rhythm. Heart sound normal. No murmurs noted. Pulses normal throughout. Respiratory: No respiratory distress. Painless inspiration. Breath sounds normal. No wheezes/rales/rhonchi noted. Chest nontender. No accessory muscle usage noted or decreased air movement noted. Abdomen: Soft and nontender. Bowel sounds normal in all 4 quadrants. No distention noted. No organomegaly noted. No visible injury noted. Back: No CVA tenderness. Full range of motion noted. Skin: Skin warm and dry. Normal skin color. Normal skin turgor. No rashes/lesions/lacerations noted. Extremities: No lower extremity edema. Extremities exhibit normal range of motion. Extremities nontender. Neuro: Cranial nerve exam: II-XII are grossly intact No motor deficit. No sensory deficit. Reflexes normal. Course Reevaluation(s) Reevaluation #1: 1. Change mental status, catatonic status patient with history of catatonia, valproic acid is subtherapeutic will load with 500 mg p.o. 2. Mild elevation of BUN creatinine improved with 1 L of IV fluids. 3. Will get care team evaluation, start physician observation. Time: 00:29 Reevaluation #2: DR. Benson's progress note: 10/28/2024 2;00. VSS,, medically cleared, await care team evaluation, signed out to Dr. Reagan. Time: 02:00 Reevaluation #3: Admitted to , discontinue physician observation. Time: 17:07 Medications Administered Generic Name Dose Route Start Last Admin Trade Name Freq PRN Reason Stop Dose Admin Pramipexole Dihydrochloride 0.5 mg 10/28/24 15:00 10/28/24 15:41 Pramipexole Di-Hcl 0.25 Mg Tablet PO 0.5 mg TID KRISTIN Administration Discontinued Medications Generic Name Dose Route Start Last Admin Trade Name Freq PRN Reason Stop Dose Admin Lactated Ringer's 1,000 mls @ 999 mls/hr 10/27/24 22:15 10/27/24 23:35 Lr IV 10/27/24 23:15 Infused .Q1H1M KRISTIN Infusion Valproic Acid 500 mg 10/28/24 00:27 10/28/24 01:57 Valproic Acid 250 Mg Capsule PO 10/28/24 00:28 500 mg ONCE ONE Administration Medical Decision Making Differential Diagnosis Differential Diagnoses: The differential diagnosis associated with the presentation includes (Acute catatonic status, electrolyte derangement, severe anemia, medical clearance, CAMILLE, substance therapeutic psych medication.) Admission/Observation Consideration of admission/observation: Escalation of care including admission/observation considered Lab Data MDM Lab Attestation statement: I reviewed the patient's lab results. 10/27/24 20:24 10/27/24 23:54 Labs: Lab Results 10/27/24 10/27/24 10/27/24 Range/Units 20:24 20:47 20:48 WBC 7.3 (4.8-10.8) X10*3/uL RBC 4.51 L (4.60-5.80) X10*6/uL Hgb 13.1 L (14.0-18.0) g/dl Hct 39.2 L (42.0-52.0) % MCV 86.9 (80.0-98.0) fL MCH 29.0 (27.0-33.0) pg MCHC 33.4 (31.0-36.0) g/dl RDW 13.7 (11.0-16.0) % Plt Count 178 (160-400) X10*3/uL MPV 11.0 (9.4-12.4) fL Immature Gran % (Auto) 0.3 (0.0-0.4) % Neut % (Auto) 75.4 H (45-73) % Lymph % (Auto) 14.8 L (20-40) % [place] % (Auto) 9.2 (2-11) % Eos % (Auto) 0.0 (0-4) % Baso % (Auto) 0.3 (0-2) % Lymph # (Auto) 1.1 L (1.2-4.9) X10*3/uL [place] # (Auto) 0.7 (0.1-1.2) X10*3/uL Eos # (Auto) 0.0 (0.0-0.4) X10*3/uL Baso # (Auto) 0.0 (0.0-0.2) X10*3/uL Abs Immat Gran (auto) 0.02 (0.00-0.03) X10*3/uL Absolute Neuts (auto) 5.5 (2.0-8.3) x10*3/uL Absolute Nucleated RBC 0.000 (0.0-0.012) X10*3/uL Nucleated RBC % (auto) 0.0 (0.0-0.2) /100WBC Sodium 145 (135-145) mmol/L Potassium 4.6 (3.3-5.1) mmol/L Chloride 109 H (96-108) mmol/L Carbon Dioxide 29 (22-29) mmol/L Anion Gap 12 (12-20) BUN 35 H (9-16) mg/dL Creatinine 1.56 H (0.5-1.4) mg/dL Estim Creat Clear Calc 57.8 Estimated GFR 45 POC Glucose 116 H (60-115) mg/dL Random Glucose 112 (60-115) mg/dL Lactic Acid 0.8 (0.5-2.0) mmol/L Calcium 9.3 (8.4-10.2) mg/dL Total Bilirubin 0.2 (0.0-1.0) mg/dL AST 18 (5-37) U/L ALT 20 (0-40) U/L Alkaline Phosphatase 61 (39-117) U/L Ammonia (13-55) umol/L Troponin I High Sens 4.4 (<3.5-35.0) ng/L Total Protein 7.1 (6.5-8.0) g/dL Albumin 4.3 (3.5-5.0) g/dL Urine Color Yellow Urine Appearance Clear Urine pH 6.5 (5.0-9.0) Ur Specific [place] 1.015 (1.005-1.025) Urine Protein Negative (Neg-Trace) mg/dL Urine Glucose (UA) Negative (Negative) mg/dL Urine Ketones Negative (Negative) mg/dL Urine Blood Negative (Negative) Urine Nitrite Negative (Negative) Ur Leukocyte Esterase Negative (Negative) Salicylates < 5.0 L (15-30) mg/dL Urine Opiates Screen (Not Detect) Ur Buprenorphine Scrn (Not Detect) ng/mL Ur Oxycodone Screen (Not Detect) ng/mL Urine Methadone Screen (Not Detect) ng/mL Urine Fentanyl Screen (Not Detect) Acetaminophen < 3 (<30) mcg/mL Ur Barbiturates Screen (Not Detect) Valproic Acid (50.0-100.0) mcg/mL Ur Phencyclidine Scrn (Not Detect) Ur Amphetamines Screen (Not Detect) U Benzodiazepines Scrn (Not Detect) Urine Cocaine Screen (Not Detect) U Marijuana (THC) Screen (Not Detect) Ethyl Alcohol < 10 mg/dL 10/27/24 10/27/24 10/27/24 Range/Units 20:49 23:22 23:54 WBC (4.8-10.8) X10*3/uL RBC (4.60-5.80) X10*6/uL Hgb (14.0-18.0) g/dl Hct (42.0-52.0) % MCV (80.0-98.0) fL MCH (27.0-33.0) pg MCHC (31.0-36.0) g/dl RDW (11.0-16.0) % Plt Count (160-400) X10*3/uL MPV (9.4-12.4) fL Immature Gran % (Auto) (0.0-0.4) % Neut % (Auto) (45-73) % Lymph % (Auto) (20-40) % [place] % (Auto) (2-11) % Eos % (Auto) (0-4) % Baso % (Auto) (0-2) % Lymph # (Auto) (1.2-4.9) X10*3/uL [place] # (Auto) (0.1-1.2) X10*3/uL Eos # (Auto) (0.0-0.4) X10*3/uL Baso # (Auto) (0.0-0.2) X10*3/uL Abs Immat Gran (auto) (0.00-0.03) X10*3/uL Absolute Neuts (auto) (2.0-8.3) x10*3/uL Absolute Nucleated RBC (0.0-0.012) X10*3/uL Nucleated RBC % (auto) (0.0-0.2) /100WBC Sodium 145 (135-145) mmol/L Potassium 4.5 (3.3-5.1) mmol/L Chloride 111 H (96-108) mmol/L Carbon Dioxide 25 (22-29) mmol/L Anion Gap 14 (12-20) BUN 33 H (9-16) mg/dL Creatinine 1.39 (0.5-1.4) mg/dL Estim Creat Clear Calc 64.9 Estimated GFR 52 POC Glucose 50 L* (60-115) mg/dL Random Glucose 106 (60-115) mg/dL Lactic Acid (0.5-2.0) mmol/L Calcium 8.8 (8.4-10.2) mg/dL Total Bilirubin (0.0-1.0) mg/dL AST (5-37) U/L ALT (0-40) U/L Alkaline Phosphatase (39-117) U/L Ammonia 37 (13-55) umol/L Troponin I High Sens (<3.5-35.0) ng/L Total Protein (6.5-8.0) g/dL Albumin (3.5-5.0) g/dL Urine Color Urine Appearance Urine pH (5.0-9.0) Ur Specific [place] (1.005-1.025) Urine Protein (Neg-Trace) mg/dL Urine Glucose (UA) (Negative) mg/dL Urine Ketones (Negative) mg/dL Urine Blood (Negative) Urine Nitrite (Negative) Ur Leukocyte Esterase (Negative) Salicylates (15-30) mg/dL Urine Opiates Screen Not Detected (Not Detect) Ur Buprenorphine Scrn Not Detected (Not Detect) ng/mL Ur Oxycodone Screen Not Detected (Not Detect) ng/mL Urine Methadone Screen Not Detected (Not Detect) ng/mL Urine Fentanyl Screen Not Detected (Not Detect) Acetaminophen (<30) mcg/mL Ur Barbiturates Screen Not Detected (Not Detect) Valproic Acid < 12.5 L (50.0-100.0) mcg/mL Ur Phencyclidine Scrn Not Detected (Not Detect) Ur Amphetamines Screen Not Detected (Not Detect) U Benzodiazepines Scrn Not Detected (Not Detect) Urine Cocaine Screen Not Detected (Not Detect) U Marijuana (THC) Screen Not Detected (Not Detect) Ethyl Alcohol mg/dL Independent Interpretation I performed an independent interpretation of an: Plain X-Ray (Chest:1. No acute cardiopulmonary process. No focal pulmonary consolidation.) and CT Scan (Head:1. Mildly motion limited exam. No acute intracranial abnormality or acute intracranial hemorrhage identified given the exam limitations.) Radiology Impression Discussion of test interpretation with radiology: I have reviewed the radiologist's reading. Discharge Plan Discharge Clinical Impression: Catatonia, Schizoaffective disorder, Altered mental status Patient Disposition: Admitted As Inpatient Discharge Date/Time: 10/28/24 14:06
[2024-10-27 20:32] LABS: MANUAL DIFF FLAG NO
[2024-10-27 20:33] LABS: Hematocrit 39.2 % (42.0-52.0); Hemoglobin 13.1 g/dl (14.0-18.0); Imm Gran Abs Auto 0.02 X10*3/uL (0.00-0.03); Imm Gran Pct Auto 0.3 % (0.0-0.4); Lymphocytes Absolute Auto 1.1 X10*3/uL (1.2-4.9); Mean Corpuscular HGB Conc 33.4 g/dl (31.0-36.0); Mean Corpuscular Hemoglobin 29.0 pg (27.0-33.0); Mean Corpuscular Volume 86.9 fL (80.0-98.0); NRBC Abs Auto 0.000 X10*3/uL (0.0-0.012); NRBC Pct Auto 0.0 /100WBC (0.0-0.2); Platelet Count 178 X10*3/uL (160-400); Red Blood Count 4.51 X10*6/uL (4.60-5.80); White Blood Count 7.3 X10*3/uL (4.8-10.8)
--- NOTE | 2024-10-27 20:36 | PC.NURSE ---
Straight Cath completed as ordered. PT tolerated well. Immediate output noted to be clear yellow urine.
[2024-10-27 20:48] LABS: Acetaminophen LAB < 3 mcg/mL (<30); Alanine Aminotransferase 20 U/L (0-40); Albumin Level 4.3 g/dL (3.5-5.0); Alkaline Phosphatase 61 U/L (39-117); Anion Gap 12 (12-20); Aspartate Amino Transferase 18 U/L (5-37); Blood Urea Nitrogen 35 mg/dL (9-16); Calcium 9.3 mg/dL (8.4-10.2); Carbon Dioxide 29 mmol/L (22-29); Chloride 109 mmol/L (96-108); Creatinine Clr Calc Pharmacy 57.8; Estimated Glomerular Filt Rate 45; Potassium 4.6 mmol/L (3.3-5.1); Salicylate < 5.0 mg/dL (15-30); Sodium 145 mmol/L (135-145); Total Protein 7.1 g/dL (6.5-8.0)
[2024-10-27 20:52] LABS: Troponin-I High Sensitivity 4.4 ng/L (<3.5-35.0)
[2024-10-27 20:57] LABS: Appearance Urine Clear; Glucose Urine UA Negative (Negative); PH 6.5 (5.0-9.0); Specific Gravity - Urine 1.015 (1.005-1.025)
[2024-10-27 21:07] LABS: Cannabinoid Screen Urine Not Detected (Not Detect)
[2024-10-27] MEDS: Lactated Ringers 1,000 ML 999 ML IV (22:30)
[2024-10-27 22:31] VITALS: BP 138/79; PULSE 87; RESP 15; TEMP 36.8; O2SAT 94
[2024-10-28 00:09] LABS: Ammonia 37 umol/L (13-55)
[2024-10-28 00:16] LABS: Anion Gap 14 (12-20); Blood Urea Nitrogen 33 mg/dL (9-16); Calcium 8.8 mg/dL (8.4-10.2); Carbon Dioxide 25 mmol/L (22-29); Chloride 111 mmol/L (96-108); Creatinine Clr Calc Pharmacy 64.9; Estimated Glomerular Filt Rate 52; Potassium 4.5 mmol/L (3.3-5.1); Sodium 145 mmol/L (135-145)
[2024-10-28 01:55] VITALS: BP 139/79; PULSE 78; RESP 11; TEMP 36.9; O2SAT 93
--- NOTE | 2024-10-28 02:00 | PC.NURSE ---
PT medicated as per may. Able to follow commands and now responding to yes or no questions.
--- NOTE | 2024-10-28 06:01 | PC.NURSE ---
PT attempting to use urinal several of times with no output. Ambulated to bathroom and pt unable to void. Bladder scanned results- 559mls of urine. Notified provider. straight cath performed as ordered. PT not tolerated well, moving around resulting in catheter almost falling and pt step on urine bag with his foot. Only able to collect roughly 300mls of urine. Post straight cath scan noted 227 mls of urine remains in bladder.
--- NOTE | 2024-10-28 07:14 | PC.NURSE ---
Addendum entered by Reema Gordon RN 10/28/24 07:17: Patient with PMH of HTN, T2 DM, schizoaffective disorder, depression, catatonia, history of psychiatric hospitalization, patient brought in by EMS from a assisted after noticed to have change mental status, patient was found wandering in the street soaked in urine patient is non historian able to regards examiner but not answering any questions. Patient alert, one syllable responses noted, such as no No eye contact and generalized tremors noted. Lungs clear bilat. Respirations even and non-labored. Abdomen soft, non-tender with positive bowel sounds. Positive pedal pulses with no edema. CARE team eval pending. Original Note: Patient is a 59 year-old male with hx of schizoaffective disorder who was recently in [facility] due to worsening of catatonia on 06/21/2024 and admitted. He had last outpatient ECT on 06/17/2024. Clozaril levels taken on day he arrived to the hospital to be close to zero, which prompted concern for clozaril withdrawal catatonia. He had one more ECT treatment while inpatient on 07/15/24, but pt became more disorganized and with s/s suggestive of excitatory catatonia.
[2024-10-28 07:58] VITALS: BP 135/57; PULSE 81; RESP 16; O2SAT 96
--- NOTE | 2024-10-28 08:20 | MHC.CARE ---
Pt will be an inpatient bedsearch.
[2024-10-28 09:26] LABS: Glucose, Whole Blood 50 mg/dL (60-115)
[2024-10-28 09:27] LABS: Glucose, Whole Blood 116 mg/dL (60-115)
[2024-10-28 14:19] VITALS: BMI 27.3
[2024-10-28 14:20] VITALS: BP 134/79; PULSE 88; RESP 16; TEMP 36.8; O2SAT 96
--- NOTE | 2024-10-28 15:33 | HO.PSYADMNOT ---
HPI Date of Service: 10/28/24 Chief Complaint: Catatonia Sources of Information: patient interviewed, chart reviewed and crisis/core team assessment reviewed HPI Subjective Notes: Section 12B Healthcare Proxy: Yes Narrative: Mr. Tenorio is a 59 year-old male with a hx of schizoaffective disorder who was recently discharged from on 10/08/2024 after prolonged admission for catatonia. He was brought via EMS from [facility] from [place] due to patient presenting as less talkative, had left the [facility] unexpectedly while meeting with his father and found wet with urine. Pertient labs completed in the ED include CBC without leukocytosis, normocytic anemia (stable and improved H&H), CMP with no electrolyte abnormalities but noted elevation in BUN/Cr which improved after liter of IV fluids. BUN 33, Cr. 1.39, creatinine clearance 64.9, LFT wnl. ammonia 37. UA without s/s of UTI, mostly unremarkable. Utox negative. Clozapine/norclozapine levels pending. Depakote level 12.5. On the unit, pt is laying in bed. Noted right arm dyskinesia and involuntary jaw/perioral movements. He is staring. His speech with significant delay in response. He reports the police was after him and they wanted to arrest him. When asked to elaborate, pt was than mostly staring. Some waxy flexibility noted. He is also mildly sweating. Per crisis report, Alex from had reported pt less talkative and less interactive in past few days. Since discharge on 10/08/2024, he only had one ketamine treatment on 10/14 but only had partial dose as initially patient was refusing to get treatment. He declined ketamine treatment the week of 10/21, they were hoping to bring him this week. Past Psychiatric History: Inpatient: M5 04/17/2023-05/02/2023; M3 03/06/2023-02/2023; 01/04/2023-02/02/2023; 06/13/2022-07/19/2022; S1 12/2023; 04/2024; on 07/2024-10/08/2024 (after prolonged admission for catatonia) OP: [facility] Past medication trials: clozaril, ativan, sertraline, olanzapine, Ketamine (for catatonia) Medical Evaluation Reviewed: Yes [facility] Medical History Tardive dyskinesia Hospital discharge follow-up Mild sleep apnea Nocturnal hypoxia Routine medical exam Joint inflammation of right hand and wrist Status post fall Adult general medical exam Screening for colon cancer Screening for prostate cancer Cough BPH (benign prostatic hyperplasia) Surgical History History of colonoscopy (~06/15/21) History of tooth extraction History of root canal procedure Family History: none Social History: never . Currently lives in from [facility]. Substance History: none Trauma History: unknown Diagnostics Vital Signs (24Hr): Vital Signs - 24 hr 10/27/24 19:21 10/27/24 19:22 10/27/24 22:31 Temperature 98.9 F 98.9 F 98.2 F Pulse Rate 93 93 87 Respiratory Rate 18 18 15 Blood Pressure 144/77 H 144/77 H 138/79 Pulse Oximetry 93 93 94 Oxygen Delivery Method Room Air Room Air Room Air 10/28/24 01:55 10/28/24 07:58 10/28/24 14:20 Temperature 98.4 F 98.2 F Pulse Rate 78 81 88 Respiratory Rate 11 L 16 16 Blood Pressure 139/79 135/57 L 134/79 Pulse Oximetry 93 96 96 Oxygen Delivery Method Room Air Room Air Room Air BMI result Body Mass Index 27.3 Labs 10/27/24 20:24 10/27/24 23:54 Labs: Laboratory Results - last 48 hr 10/27/24 10/27/24 10/27/24 20:24 20:47 20:48 WBC 7.3 RBC 4.51 L Hgb 13.1 L Hct 39.2 L MCV 86.9 MCH 29.0 MCHC 33.4 RDW 13.7 Plt Count 178 MPV 11.0 Immature Gran % (Auto) 0.3 Neut % (Auto) 75.4 H Lymph % (Auto) 14.8 L [place] % (Auto) 9.2 Eos % (Auto) 0.0 Baso % (Auto) 0.3 Lymph # (Auto) 1.1 L [place] # (Auto) 0.7 Eos # (Auto) 0.0 Baso # (Auto) 0.0 Abs Immat Gran (auto) 0.02 Absolute Neuts (auto) 5.5 Absolute Nucleated RBC 0.000 Nucleated RBC % (auto) 0.0 Sodium 145 Potassium 4.6 Chloride 109 H Carbon Dioxide 29 Anion Gap 12 BUN 35 H Creatinine 1.56 H Estim Creat Clear Calc 57.8 Estimated GFR 45 POC Glucose 116 H Random Glucose 112 Lactic Acid 0.8 Calcium 9.3 Total Bilirubin 0.2 AST 18 ALT 20 Alkaline Phosphatase 61 Ammonia Troponin I High Sens 4.4 Total Protein 7.1 Albumin 4.3 Urine Color Yellow Urine Appearance Clear Urine pH 6.5 Ur Specific [place] 1.015 Urine Protein Negative Urine Glucose (UA) Negative Urine Ketones Negative Urine Blood Negative Urine Nitrite Negative Ur Leukocyte Esterase Negative Salicylates < 5.0 L Urine Opiates Screen Ur Buprenorphine Scrn Ur Oxycodone Screen Urine Methadone Screen Urine Fentanyl Screen Acetaminophen < 3 Ur Barbiturates Screen Valproic Acid Ur Phencyclidine Scrn Ur Amphetamines Screen U Benzodiazepines Scrn Urine Cocaine Screen U Marijuana (THC) Screen Ethyl Alcohol < 10 10/27/24 10/27/24 10/27/24 20:49 23:22 23:54 WBC RBC Hgb Hct MCV MCH MCHC RDW Plt Count MPV Immature Gran % (Auto) Neut % (Auto) Lymph % (Auto) [place] % (Auto) Eos % (Auto) Baso % (Auto) Lymph # (Auto) [place] # (Auto) Eos # (Auto) Baso # (Auto) Abs Immat Gran (auto) Absolute Neuts (auto) Absolute Nucleated RBC Nucleated RBC % (auto) Sodium 145 Potassium 4.5 Chloride 111 H Carbon Dioxide 25 Anion Gap 14 BUN 33 H Creatinine 1.39 Estim Creat Clear Calc 64.9 Estimated GFR 52 POC Glucose 50 L* Random Glucose 106 Lactic Acid Calcium 8.8 Total Bilirubin AST ALT Alkaline Phosphatase Ammonia 37 Troponin I High Sens Total Protein Albumin Urine Color Urine Appearance Urine pH Ur Specific [place] Urine Protein Urine Glucose (UA) Urine Ketones Urine Blood Urine Nitrite Ur Leukocyte Esterase Salicylates Urine Opiates Screen Not Detected Ur Buprenorphine Scrn Not Detected Ur Oxycodone Screen Not Detected Urine Methadone Screen Not Detected Urine Fentanyl Screen Not Detected Acetaminophen Ur Barbiturates Screen Not Detected Valproic Acid < 12.5 L Ur Phencyclidine Scrn Not Detected Ur Amphetamines Screen Not Detected U Benzodiazepines Scrn Not Detected Urine Cocaine Screen Not Detected U Marijuana (THC) Screen Not Detected Ethyl Alcohol Meds/Allergies Allergies Allergies Allergy/AdvReac Type Severity Reaction Status Date / Time No Known Allergies (NKA) Allergy Unknown NONE Verified 10/27/24 19:26 Mental Status Exam Mental Status Exam Narrative: Appearance: wearing hospital gown, very malodorous, in NAD Behavior: minimally engaging, staring Psychomotor: perioral/jaw involuntary movement, dyskinesia right arm. Speech: mumbles, delay response, soft tone, minimally spontaneous. TP: mostly mute TC:unable to assess Mood:unable to assess Affect: constricted SI: none HI: none VH/AH: may be internally preoccupied but difficult to assess Delusions: police was trying to arrest me Insight/judgment: impaired x 2. Memory/cog: alert, oriented to place, year not situation Assessment & Plan Assessment & Plan (1) Schizoaffective disorder: Status: Acute Code(s): F25.9 - Schizoaffective disorder, unspecified (2) Catatonia: Status: Acute Code(s): F06.1 - Catatonic disorder due to known physiological condition Plan Mr. 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 He had responded to ketamine treatment, failed ECT with further complications including aspiration. He presents with catatonia again including mutism, waxy flexibility. He had one ketamine treatment since he was discharged from the hospital and only partial dose. He was recommended to do weekly ketamine treatments to prevent catatonia. reports he was taking medications as prescribed. Pending clozapine/norclozapine levels. PLAN 1. Admit to , Sect 12b, 1:1 unsteady gait 2. will check KUB for constipation as pt very poor historian but reports no BM in several days. Will also check bladder scan post void to rule out overflow incontinence due to urinary retention since reports increase incontinence in past few days. Note that he was straight cath while in the ED. 3. restart medications- abilify, sertraline, clozapine, low dose depakote 4. obtain collateral information 5. aftercare panning. Patient educated on: diagnosis and medication risk/benefits Reason for continued inpatient stay Substantial Risk for: inability to function Statement Statement: I have reviewed the history and physical and performed a pertinent examination on my patient. No changes have occurred unless specified. If the History and Physical was not performed prior to admission, the Hospitalist's service will be consulted for completing the admission physical. Time Spent With Patient Time: Total time managing care of this patient today ____ minutes.
--- NOTE | 2024-10-28 17:30 | PC.NURSE ---
This race and sports book writer texted food production associate provider, to let her know that the KUB reads that there is a large amount of stool in colon and rectum . Answer pending.
--- NOTE | 2024-10-28 18:07 | PC.NURSE ---
This writter texted provider to request flush orders. Provider stated affirmative.
--- NOTE | 2024-10-28 18:20 | PC.ADMIT ---
Pt arrived on the unit at 1411 and is here on a 12b. He [place] [facility] [place] [facility] and per crisis report, was BIBA on 10/27/2024 after being found in the community. He was found in urine soaked clothing wandering on the streets. Pt currently resides in a medical focused halfway in [place], which he moved into mid-September of this year. This placement was set up during his last admission here. Pt currently A&O to self and location. He lacks insight into situation and didn't know his . Pt has decompensated and is answering in 1-2 word answers. He has a past hx of Schizoaffective d/o. Benjamin has tremors in his lower jaw. Skin check revealed L sided a/c IV. Pt currently retaining urine. Bladder scan orders in. HCP, father, Benjamin Tenorio-[phone]. Pt pleasant, cooperative, and quiet.
[2024-10-28 20:00] VITALS: BP 115/69; PULSE 85; RESP 16; TEMP 36.6
[2024-10-28] MEDS: Divalproex Sodium Sprinkles 125 MG CAP.DR.SPR 500 MG PO (21:08)
[2024-10-28] MEDS: Milk of Magnesia 30 ML ORAL.SUSP 5 ML PO (21:35)
[2024-10-29 08:00] VITALS: BP 121/66; PULSE 77; RESP 16; TEMP 37; O2SAT 93
[2024-10-29 08:02] LABS: Alanine Aminotransferase 18 U/L (0-40); Albumin Level 3.9 g/dL (3.5-5.0); Alkaline Phosphatase 46 U/L (39-117); Anion Gap 11 (12-20); Aspartate Amino Transferase 20 U/L (5-37); Blood Urea Nitrogen 30 mg/dL (9-16); Calcium 8.9 mg/dL (8.4-10.2); Carbon Dioxide 28 mmol/L (22-29); Chloride 110 mmol/L (96-108); Cholesterol 159 mg/dL (<200); Creatinine Clr Calc Pharmacy 55.4; Estimated Glomerular Filt Rate 48; HDL Cholesterol 36 mg/dL (>40); Potassium 4.3 mmol/L (3.3-5.1); Sodium 145 mmol/L (135-145); Total Protein 6.5 g/dL (6.5-8.0); Triglycerides 85 mg/dL (<150)
[2024-10-29 08:12] LABS: Total Hemoglobin (HGBA1C) 3243.3491 umol/L
[2024-10-29 08:35] LABS: Thyroid Stimulating Hormone 0.92 uIU/mL (0.32-4.0)
[2024-10-29] MEDS: Ferrous Sulfate 324 MG TABLET.DR PO (08:38)
[2024-10-29 08:50] LABS: Folate 11.1 ng/mL (> or = 4.0); Vitamin B12 516 pg/mL (200-900)
[2024-10-29] MEDS: 0.9 % Sodium Chloride Flush 10 ML SYRINGE 5 ML IVFLUSH ×3 (09:11→23:48)
[2024-10-29 20:00] VITALS: BP 119/68; PULSE 71; RESP 16; TEMP 37.1; O2SAT 93
[2024-10-29] MEDS: Divalproex Sodium Sprinkles 125 MG CAP.DR.SPR 500 MG PO (21:23)
[2024-10-29] MEDS: Milk of Magnesia 30 ML ORAL.SUSP 5 ML PO (21:23)
--- NOTE | 2024-10-30 07:39 | HO.PSYCHPN ---
Subjective Subjective Date of Service: 10/29/24 Reason For Visit: Catatonia Subjective Notes: Conditional Voluntary and Section 12B Healthcare Proxy: Yes Interim History: Pt withdrawn mostly mute psychomotor retarded Medication Compliance: Yes Side effects from medications: No Review of Systems urinary incont vs overflow Mental Status Exam Mental Status Exam Narrative: Mental Status Exam Narrative: Appearance: wearing hospital gown, very malodorous, in NAD Behavior: minimally engaging, staring Psychomotor: perioral/jaw involuntary movement, dyskinesia right arm. Speech: mumbles, delay response, soft tone, minimally spontaneous. TP: mostly mute TC:unable to assess Mood:unable to assess Affect: constricted SI: none HI: none VH/AH: may be internally preoccupied but difficult to assess Delusions: police was trying to arrest me Insight/judgment: impaired x 2. Memory/cog: alert, oriented to place, year not situation Diagnostics Vital Signs (24Hr): Vital Signs - 24 hr 10/29/24 08:00 10/29/24 20:00 Temperature 98.6 F 98.8 F Pulse Rate 77 71 Respiratory Rate 16 16 Blood Pressure 121/66 119/68 Pulse Oximetry 93 93 Oxygen Delivery Method Room Air Room Air BMI result Body Mass Index 27.3 Labs 10/27/24 20:24 10/29/24 07:19 Labs: Laboratory Results - last 48 hr 10/27/24 10/27/24 10/29/24 20:47 23:22 07:19 Sodium 145 Potassium 4.3 Chloride 110 H Carbon Dioxide 28 Anion Gap 11 L BUN 30 H Creatinine 1.49 H Estim Creat Clear Calc 55.4 Estimated GFR 48 POC Glucose 116 H 50 L* Random Glucose 96 Estimat Average Glucose 103 Hemoglobin A1c % 5.2 Calcium 8.9 Total Bilirubin 0.4 AST 20 ALT 18 Alkaline Phosphatase 46 Total Protein 6.5 Albumin 3.9 Triglycerides 85 Cholesterol 159 LDL Cholesterol, Calc 106 H HDL Cholesterol 36 L Vitamin B12 516 Folate 11.1 TSH 0.92 Imaging Radiology Impressions: ITS Impressions KUB X-Ray 10/28/24 16:45 IMPRESSION: Again seen is a large amount of stool throughout the colon and rectum. Electronically signed by: Jose J Gonzalez MD 10/28/2024 05:20 PM EDT Medications Medications Current Medications Acetaminophen (Acetaminophen 325 Mg Tablet) 650 mg PO Q6H PRN PRN Reason: Headache/Pain, Scale 1-10 Last Admin: 10/28/24 21:09 Dose: 650 mg Al Hydroxide/Mg Hydroxide (Magnesium Hydrox/Alum Hydrox 30 Ml Oral.Susp) 30 ml PO Q6H PRN PRN Reason: Heartburn/Nausea Aripiprazole (Aripiprazole 5 Mg Tablet) 5 mg PO DAILY@1730 [facility] Last Admin: 10/29/24 17:24 Dose: 5 mg Ascorbic Acid (Ascorbic Acid 500 Mg Tablet) 500 mg PO DAILY [facility] Last Admin: 10/29/24 08:39 Dose: 500 mg Clozapine (Clozapine 25 Mg Tablet) 150 mg PO DAILY@1999 [facility] Last Admin: 10/29/24 21:22 Dose: 150 mg Divalproex Sodium (Divalproex Sodium Sprinkles 125 Mg Cap..Spr) 500 mg PO DAILY@1999 [facility] Last Admin: 10/29/24 21:23 Dose: 500 mg Ferrous Sulfate (Ferrous Sulfate 324 Mg Tablet.) 324 mg PO DAILY [facility] Last Admin: 10/29/24 08:38 Dose: 324 mg Finasteride (Finasteride 5 Mg Tablet) 5 mg PO DAILY [facility] Last Admin: 10/29/24 08:38 Dose: 5 mg Ketamine HCl 45 mg/ Sodium (Chloride) 4.5 mls @ 4.5 mls/hr IV ONCE ONE Stop: 10/30/24 07:35 Ketamine HCl 45 mg/ Sodium (Chloride) 4.5 mls @ 4.5 mls/hr IV ONCE ONE Stop: 10/31/24 07:32 Magnesium Hydroxide (Milk Of Magnesia 30 Ml Oral.Susp) 30 ml PO DAILY PRN PRN Reason: Constipation Magnesium Hydroxide (Milk Of Magnesia 30 Ml Oral.Susp) 5 ml PO BEDTIME [facility] Last Admin: 10/29/24 21:23 Dose: 5 ml Mirtazapine (Mirtazapine 15 Mg Tablet) 15 mg PO BEDTIME [facility] Last Admin: 10/29/24 21:23 Dose: 15 mg Olanzapine (Olanzapine Odt 10 Mg Tab.Rapdis) 5 mg TRANSLINGU BID PRN PRN Reason: agitation Polyethylene Glycol (Polyethylene Glycol 3350 17 Gm Powd.Pack) 17 gm PO DAILY [facility] Last Admin: 10/29/24 08:39 Dose: 17 gm Pramipexole Dihydrochloride (Pramipexole Di-Hcl 0.25 Mg Tablet) 0.5 mg PO TID [facility] Last Admin: 10/29/24 21:23 Dose: 0.5 mg Senna/Docusate Sodium (Sennosides/Docusate Sodium Tablet) 1 tab PO BID PRN PRN Reason: no BM for more than 3days Sertraline HCl (Sertraline Hcl 25 Mg Tablet) 75 mg PO DAILY [facility] Last Admin: 10/29/24 08:38 Dose: 75 mg Sodium Chloride (0.9 % Sodium Chloride Flush 10 Ml Syringe) 5 ml IVFLUSH QSHIFT [facility] Last Admin: 10/29/24 23:48 Dose: 5 ml Tamsulosin HCl (Tamsulosin Hcl 0.4 Mg Capsule) 0.8 mg PO BEDTIME [facility] Last Admin: 10/29/24 21:22 Dose: 0.8 mg Thiamine HCl (Thiamine Hcl 100 Mg Tablet) 100 mg PO DAILY [facility] Last Admin: 10/29/24 08:39 Dose: 100 mg Trazodone HCl (Trazodone Hcl 50 Mg Tablet) 50 mg PO BEDTIME PRN PRN Reason: Insomnia Last Admin: 10/29/24 21:23 Dose: 50 mg Allergies Allergies Allergy/AdvReac Type Severity Reaction Status Date / Time No Known Allergies (NKA) Allergy Unknown NONE Verified 10/27/24 19:26 Assessment & Plan Assessment & Plan (1) Schizoaffective disorder: Status: Acute Code(s): F25.9 - Schizoaffective disorder, unspecified (2) Catatonia: Status: Acute Code(s): F06.1 - Catatonic disorder due to known physiological condition (3) Essential hypertension: Status: Acute Code(s): I10 - Essential (primary) hypertension (4) Urinary retention with incomplete bladder emptying: Status: Acute Code(s): R33.9 - Retention of urine, unspecified Plan Mr. 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 He had responded to ketamine treatment, failed ECT with further complications including aspiration. He presents with catatonia again including mutism, waxy flexibility. He had one ketamine treatment since he was discharged from the hospital and only partial dose. He was recommended to do weekly ketamine treatments to prevent catatonia. reports he was taking medications as prescribed. Pending clozapine/norclozapine levels. PLAN 1. Admit to S1, Sect 12b, 1:1 unsteady gait 2. will check KUB for constipation as pt very poor historian but reports no BM in several days. Will also check bladder scan post void to rule out overflow incontinence due to urinary retention since GH reports increase incontinence in past few days. Note that he was straight cath while in the ED. 3. restart medications- abilify, sertraline, clozapine, low dose depakote 4. obtain collateral information 5. aftercare panning. 10/29/24 Pt to restart ketamine hcp in effect on 12 b at present Informed Consent: does not understand Reason for continued inpatient stay Substantial Risk for: inability to function, rapid decompensation and med/psych decompensation Time Spent With Patient Time: Total time managing care of this patient today 30____ minutes.
[2024-10-30 08:00] VITALS: BP 118/65; PULSE 95; RESP 16; TEMP 36.3; O2SAT 96
[2024-10-30] MEDS: Ferrous Sulfate 324 MG TABLET.DR PO (08:54)
[2024-10-30 13:42] LABS: Alanine Aminotransferase 22 U/L (0-40); Albumin Level 4.3 g/dL (3.5-5.0); Alkaline Phosphatase 51 U/L (39-117); Anion Gap 14 (12-20); Aspartate Amino Transferase 23 U/L (5-37); Blood Urea Nitrogen 25 mg/dL (9-16); Calcium 9.0 mg/dL (8.4-10.2); Carbon Dioxide 24 mmol/L (22-29); Chloride 107 mmol/L (96-108); Creatinine Clr Calc Pharmacy 62.5; Estimated Glomerular Filt Rate 55; Potassium 4.8 mmol/L (3.3-5.1); Sodium 140 mmol/L (135-145); Total Protein 7.1 g/dL (6.5-8.0)
[2024-10-30] MEDS: 0.9 % Sodium Chloride Flush 10 ML SYRINGE 5 ML IVFLUSH ×3 (15:02→23:46)
[2024-10-30 20:00] VITALS: BP 151/67; PULSE 91; RESP 16; TEMP 36.8; O2SAT 96
[2024-10-30] MEDS: Milk of Magnesia 30 ML ORAL.SUSP 5 ML PO (21:07)
[2024-10-30] MEDS: Divalproex Sodium Sprinkles 125 MG CAP.DR.SPR 500 MG PO (21:09)
--- NOTE | 2024-10-30 22:12 | HO.PSYCHPN ---
Subjective Subjective Date of Service: 10/30/24 Reason For Visit: Catatonia Subjective Notes: Conditional Voluntary Healthcare Proxy: Yes Interim History: Patient's case reviewed in treatment planning chart reviewed patient seen met with patient's father to review information and treatment plan. Met with patient's father healthcare the invoked discussed treatment. Patient on one-to-one some intake mostly mute generally unresponsive or minimally responsive mostly lying in bed some tremor noted Attending Groups: No Mental Status Exam Mental Status Exam Narrative: Mental Status Exam Narrative: Appearance: wearing hospital gown, anxious in appearance Behavior: minimally engaging, staring Psychomotor: perioral/jaw involuntary movement, dyskinesia right arm. Speech: mumbles, delay response, soft tone, no spontaneously speech TP: mostly mute TC:unable to assess Mood:unable to assess appears anxious and dysphoric Affect: constricted SI: Not express HI: none expressed VH/AH: may be internally preoccupied but difficult to assess Delusions: None elucidated Insight/judgment: impaired x 2. Memory/cog: alert, oriented to place, year not situation Diagnostics Vital Signs (24Hr): Vital Signs - 24 hr 10/30/24 08:00 10/30/24 20:00 Temperature 97.3 F 98.2 F Pulse Rate 95 91 Respiratory Rate 16 16 Blood Pressure 118/65 151/67 H Pulse Oximetry 96 96 Oxygen Delivery Method Room Air Room Air BMI result Body Mass Index 27.3 Labs 10/27/24 20:24 10/30/24 13:09 Labs: Laboratory Results - last 48 hr 10/29/24 10/30/24 07:19 13:09 Sodium 145 140 Potassium 4.3 4.8 Chloride 110 H 107 Carbon Dioxide 28 24 Anion Gap 11 L 14 BUN 30 H 25 H Creatinine 1.49 H 1.32 Estim Creat Clear Calc 55.4 62.5 Estimated GFR 48 55 Random Glucose 96 126 H Estimat Average Glucose 103 Hemoglobin A1c % 5.2 Calcium 8.9 9.0 Total Bilirubin 0.4 0.4 AST 20 23 ALT 18 22 Alkaline Phosphatase 46 51 Total Protein 6.5 7.1 Albumin 3.9 4.3 Triglycerides 85 Cholesterol 159 LDL Cholesterol, Calc 106 H HDL Cholesterol 36 L Vitamin B12 516 Folate 11.1 TSH 0.92 Imaging Radiology Impressions: ITS Impressions KUB X-Ray 10/28/24 16:45 IMPRESSION: Again seen is a large amount of stool throughout the colon and rectum. Electronically signed by: Jose J Gonzalez MD 10/28/2024 05:20 PM EDT Medications Medications Current Medications Acetaminophen (Acetaminophen 325 Mg Tablet) 650 mg PO Q6H PRN PRN Reason: Headache/Pain, Scale 1-10 Last Admin: 10/28/24 21:09 Dose: 650 mg Al Hydroxide/Mg Hydroxide (Magnesium Hydrox/Alum Hydrox 30 Ml Oral.Susp) 30 ml PO Q6H PRN PRN Reason: Heartburn/Nausea Aripiprazole (Aripiprazole 5 Mg Tablet) 5 mg PO DAILY@1730 [facility] Last Admin: 10/30/24 17:31 Dose: 5 mg Ascorbic Acid (Ascorbic Acid 500 Mg Tablet) 500 mg PO DAILY [facility] Last Admin: 10/30/24 08:54 Dose: 500 mg Clozapine (Clozapine 25 Mg Tablet) 150 mg PO DAILY@1999 [facility] Last Admin: 10/30/24 21:09 Dose: 150 mg Divalproex Sodium (Divalproex Sodium Sprinkles 125 Mg Cap.) 500 mg PO DAILY@1999 [facility] Last Admin: 10/30/24 21:09 Dose: 500 mg Ferrous Sulfate (Ferrous Sulfate 324 Mg Tablet.) 324 mg PO DAILY [facility] Last Admin: 10/30/24 08:54 Dose: 324 mg Finasteride (Finasteride 5 Mg Tablet) 5 mg PO DAILY [facility] Last Admin: 10/30/24 08:54 Dose: 5 mg Ketamine HCl 45 mg/ Sodium (Chloride) 45 mls @ 45 mls/hr IV ONCE ONE Stop: 10/31/24 08:29 Magnesium Hydroxide (Milk Of Magnesia 30 Ml Oral.Susp) 30 ml PO DAILY PRN PRN Reason: Constipation Magnesium Hydroxide (Milk Of Magnesia 30 Ml Oral.Susp) 5 ml PO BEDTIME [facility] Last Admin: 10/30/24 21:07 Dose: 5 ml Mirtazapine (Mirtazapine 15 Mg Tablet) 15 mg PO BEDTIME [facility] Last Admin: 10/30/24 21:09 Dose: 15 mg Olanzapine (Olanzapine Odt 10 Mg Tab.Rapdis) 5 mg TRANSLINGU BID PRN PRN Reason: agitation Polyethylene Glycol (Polyethylene Glycol 3350 17 Gm Powd.Pack) 17 gm PO DAILY [facility] Last Admin: 10/30/24 08:54 Dose: 17 gm Pramipexole Dihydrochloride (Pramipexole Di-Hcl 0.25 Mg Tablet) 0.5 mg PO TID [facility] Last Admin: 10/30/24 21:09 Dose: 0.5 mg Senna/Docusate Sodium (Sennosides/Docusate Sodium Tablet) 1 tab PO BID PRN PRN Reason: no BM for more than 3days Sertraline HCl (Sertraline Hcl 25 Mg Tablet) 75 mg PO DAILY [facility] Last Admin: 10/30/24 08:54 Dose: 75 mg Sodium Chloride (0.9 % Sodium Chloride Flush 10 Ml Syringe) 5 ml IVFLUSH QSHIFT [facility] Last Admin: 10/30/24 17:30 Dose: 5 ml Tamsulosin HCl (Tamsulosin Hcl 0.4 Mg Capsule) 0.8 mg PO BEDTIME [facility] Last Admin: 10/30/24 21:09 Dose: 0.8 mg Thiamine HCl (Thiamine Hcl 100 Mg Tablet) 100 mg PO DAILY [facility] Last Admin: 10/30/24 08:54 Dose: 100 mg Trazodone HCl (Trazodone Hcl 50 Mg Tablet) 50 mg PO BEDTIME PRN PRN Reason: Insomnia Last Admin: 10/29/24 21:23 Dose: 50 mg Allergies Allergies Allergy/AdvReac Type Severity Reaction Status Date / Time No Known Allergies (NKA) Allergy Unknown NONE Verified 10/27/24 19:26 Assessment & Plan Assessment & Plan (1) Schizoaffective disorder: Status: Acute Code(s): F25.9 - Schizoaffective disorder, unspecified (2) Catatonia: Status: Acute Code(s): F06.1 - Catatonic disorder due to known physiological condition (3) Essential hypertension: Status: Acute Code(s): I10 - Essential (primary) hypertension (4) Urinary retention with incomplete bladder emptying: Status: Acute Code(s): R33.9 - Retention of urine, unspecified Plan Mr. 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 He had responded to ketamine treatment, failed ECT with further complications including aspiration. He presents with catatonia again including mutism, waxy flexibility. He had one ketamine treatment since he was discharged from the hospital and only partial dose. He was recommended to do weekly ketamine treatments to prevent catatonia. reports he was taking medications as prescribed. Pending clozapine/norclozapine levels. PLAN 1. Admit to S1, Sect 12b, 1:1 unsteady gait 2. will check KUB for constipation as pt very poor historian but reports no BM in several days. Will also check bladder scan post void to rule out overflow incontinence due to urinary retention since reports increase incontinence in past few days. Note that he was straight cath while in the ED. 3. restart medications- abilify, sertraline, clozapine, low dose depakote 4. obtain collateral information 5. aftercare panning. 10/29/24 Pt to restart ketamine hcp in effect on 12 b at present 10/30/2024 Patient now on CV by healthcare proxy. Ketamine protocol ordered for the morning the that was previously quite helpful in treating patients catatonia has not responded previously well to lorazepam had only intermittent response to ECT here proxy does not wish ECT treatment and did respond to ketamine Medications continue that previously had been helpful on recent discharge Guardian/Caregiver educated on: diagnosis, medication risk/benefits, medical condition and other (ketamine) Reason for continued inpatient stay Substantial Risk for: inability to function, rapid decompensation and med/psych decompensation Time Spent With Patient Time: Total time managing care of this patient today _45___ minutes.
[2024-10-31] VITALS (10 sets, daily range): BP systolic 121–134; BP diastolic 64–78; PULSE 68–75; RESP 16–18; TEMP 36.4–36.6; O2SAT 93–96
[2024-10-31 05:59] LABS: Clozapine (Clozaril) 76 mcg/L
[2024-10-31] MEDS: Ferrous Sulfate 324 MG TABLET.DR PO (12:46)
[2024-10-31] MEDS: 0.9 % Sodium Chloride Flush 10 ML SYRINGE 5 ML IVFLUSH ×3 (12:50→23:30)
[2024-10-31] MEDS: Divalproex Sodium Sprinkles 125 MG CAP.DR.SPR 500 MG PO (21:16)
[2024-10-31] MEDS: Milk of Magnesia 30 ML ORAL.SUSP 5 ML PO (22:07)
--- NOTE | 2024-10-31 23:22 | P.PNPSI_ITS ---
Subjective Subjective Date of Service: 10/31/24 Reason For Visit: Catatonia Subjective Notes: Conditional Voluntary Healthcare Proxy: Yes Interim History: Patient seen psychiatric follow-up. Patient did complete ketamine treatment early this morning. Patient has been withdrawn anxious in appearance eating limited vital signs stable pulse oxygen stable nursing elevating the head of bed prevent aspiration patient remains on one-to-one Medication Compliance: Intermittent Mental Status Exam Mental Status Exam Narrative: Mental Status Exam Narrative: Appearance: wearing hospital gown, anxious in appearance Behavior: minimally engaging, staring Psychomotor: perioral/jaw involuntary movement, dyskinesia right arm. Speech: mumbles, delay response, soft tone, no spontaneously speech TP: mostly mute TC:unable to assess minimal Mood:unable to assess appears anxious and dysphoric Affect: constricted SI: Not express HI: none expressed VH/AH: may be internally preoccupied but difficult to assess Delusions: None elucidated Insight/judgment: impaired x 2. Memory/cog: alert, oriented to place, year not situation Diagnostics Vital Signs (24Hr): Vital Signs - 24 hr 10/31/24 07:54 10/31/24 08:09 10/31/24 08:24 Temperature 97.6 F Pulse Rate 75 71 70 Respiratory Rate 18 18 18 Blood Pressure 132/78 131/74 134/71 Pulse Oximetry 94 93 93 Oxygen Delivery Method Room Air Room Air Room Air 10/31/24 08:39 10/31/24 08:54 10/31/24 09:09 Temperature 97.9 F Pulse Rate 68 72 71 Respiratory Rate 18 18 18 Blood Pressure 121/64 127/75 132/75 Pulse Oximetry 93 95 96 Oxygen Delivery Method Room Air Room Air Room Air 10/31/24 09:24 10/31/24 09:39 10/31/24 09:54 Temperature 97.5 F Pulse Rate 72 75 73 Respiratory Rate 18 18 18 Blood Pressure 127/76 121/74 128/74 Pulse Oximetry 96 96 95 Oxygen Delivery Method Room Air Room Air 10/31/24 20:00 Temperature 97.5 F Pulse Rate 74 Respiratory Rate 16 Blood Pressure 128/74 Pulse Oximetry 96 Oxygen Delivery Method Room Air BMI result Body Mass Index 27.3 Labs 10/27/24 20:24 10/30/24 13:09 Labs: Laboratory Results - last 48 hr 10/27/24 10/30/24 23:54 13:09 Sodium 140 Potassium 4.8 Chloride 107 Carbon Dioxide 24 Anion Gap 14 BUN 25 H Creatinine 1.32 Estim Creat Clear Calc 62.5 Estimated GFR 55 Random Glucose 126 H Calcium 9.0 Total Bilirubin 0.4 AST 23 ALT 22 Alkaline Phosphatase 51 Total Protein 7.1 Albumin 4.3 Clozapine 76 Norclozapine 34 Imaging Radiology Impressions: ITS Impressions KUB X-Ray 10/28/24 16:45 IMPRESSION: Again seen is a large amount of stool throughout the colon and rectum. Electronically signed by: Jose J Gonzalez MD 10/28/2024 05:20 PM EDT RP Medications Medications Current Medications Acetaminophen (Acetaminophen 325 Mg Tablet) 650 mg PO Q6H PRN PRN Reason: Headache/Pain, Scale 1-10 Last Admin: 10/28/24 21:09 Dose: 650 mg Al Hydroxide/Mg Hydroxide (Magnesium Hydrox/Alum Hydrox 30 Ml Oral.Susp) 30 ml PO Q6H PRN PRN Reason: Heartburn/Nausea Aripiprazole (Aripiprazole 5 Mg Tablet) 5 mg PO DAILY@1730 [facility] Last Admin: 10/31/24 17:39 Dose: 5 mg Ascorbic Acid (Ascorbic Acid 500 Mg Tablet) 500 mg PO DAILY [facility] Last Admin: 10/31/24 12:46 Dose: 500 mg Clozapine (Clozapine 25 Mg Tablet) 150 mg PO DAILY@1999 [facility] Last Admin: 10/31/24 21:14 Dose: 150 mg Divalproex Sodium (Divalproex Sodium Sprinkles 125 Mg Cap.) 500 mg PO DAILY@1999 [facility] Last Admin: 10/31/24 21:16 Dose: 500 mg Ferrous Sulfate (Ferrous Sulfate 324 Mg Tablet.) 324 mg PO DAILY [facility] Last Admin: 10/31/24 12:46 Dose: 324 mg Finasteride (Finasteride 5 Mg Tablet) 5 mg PO DAILY [facility] Last Admin: 10/31/24 12:46 Dose: 5 mg Magnesium Hydroxide (Milk Of Magnesia 30 Ml Oral.Susp) 30 ml PO DAILY PRN PRN Reason: Constipation Magnesium Hydroxide (Milk Of Magnesia 30 Ml Oral.Susp) 5 ml PO BEDTIME [facility] Last Admin: 10/31/24 22:07 Dose: 5 ml Mirtazapine (Mirtazapine 15 Mg Tablet) 15 mg PO BEDTIME [facility] Last Admin: 10/31/24 21:18 Dose: 15 mg Olanzapine (Olanzapine Odt 10 Mg Tab.Rapdis) 5 mg TRANSLINGU BID PRN PRN Reason: agitation Polyethylene Glycol (Polyethylene Glycol 3350 17 Gm Powd.Pack) 17 gm PO DAILY [facility] Last Admin: 10/31/24 12:47 Dose: 17 gm Pramipexole Dihydrochloride (Pramipexole Di-Hcl 0.25 Mg Tablet) 0.5 mg PO TID [facility] Last Admin: 10/31/24 21:17 Dose: 0.5 mg Senna/Docusate Sodium (Sennosides/Docusate Sodium Tablet) 1 tab PO BID PRN PRN Reason: no BM for more than 3days Sertraline HCl (Sertraline Hcl 25 Mg Tablet) 75 mg PO DAILY [facility] Last Admin: 10/31/24 12:46 Dose: 75 mg Sodium Chloride (0.9 % Sodium Chloride Flush 10 Ml Syringe) 5 ml IVFLUSH QSHIFT [facility] Last Admin: 10/31/24 15:54 Dose: 5 ml Tamsulosin HCl (Tamsulosin Hcl 0.4 Mg Capsule) 0.8 mg PO BEDTIME [facility] Last Admin: 10/31/24 21:17 Dose: 0.8 mg Thiamine HCl (Thiamine Hcl 100 Mg Tablet) 100 mg PO DAILY [facility] Last Admin: 10/31/24 12:46 Dose: 100 mg Trazodone HCl (Trazodone Hcl 50 Mg Tablet) 50 mg PO BEDTIME PRN PRN Reason: Insomnia Last Admin: 10/29/24 21:23 Dose: 50 mg Allergies Allergies Allergy/AdvReac Type Severity Reaction Status Date / Time No Known Allergies (NKA) Allergy Unknown NONE Verified 10/27/24 19:26 Assessment & Plan Assessment & Plan (1) Schizoaffective disorder: Status: Acute Code(s): F25.9 - Schizoaffective disorder, unspecified (2) Catatonia: Status: Acute Code(s): F06.1 - Catatonic disorder due to known physiological condition (3) Essential hypertension: Status: Acute Code(s): I10 - Essential (primary) hypertension (4) Urinary retention with incomplete bladder emptying: Status: Acute Code(s): R33.9 - Retention of urine, unspecified Plan Mr. 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 He had responded to ketamine treatment, failed ECT with further complications including aspiration. He presents with catatonia again including mutism, waxy flexibility. He had one ketamine treatment since he was discharged from the hospital and only partial dose. He was recommended to do weekly ketamine treatments to prevent catatonia. reports he was taking medications as prescribed. Pending clozapine/norclozapine levels. PLAN 1. Admit to S1, Sect 12b, 1:1 unsteady gait 2. will check KUB for constipation as pt very poor historian but reports no BM in several days. Will also check bladder scan post void to rule out overflow incontinence due to urinary retention since reports increase incontinence in past few days. Note that he was straight cath while in the ED. 3. restart medications- abilify, sertraline, clozapine, low dose depakote 4. obtain collateral information 5. aftercare panning. 10/29/24 Pt to restart ketamine hcp in effect on 12 b at present 10/30/2024 Patient now on CV by healthcare proxy. Ketamine protocol ordered for the morning the that was previously quite helpful in treating patients catatonia has not responded previously well to lorazepam had only intermittent response to ECT here proxy does not wish ECT treatment and did respond to ketamine Medications continue that previously had been helpful on recent discharge 10/31/2024 Patient given 1st ketamine treatment had respondent previously to a series no change this point. Encourage food and fluids face anxious in appearance mostly mute minimally responsive catatonic symptoms continue. Continue Abilify mirtazapine sertraline Clozaril 150 mg Continue ketamine trial Informed Consent: does not understand Reason for continued inpatient stay Substantial Risk for: inability to function, rapid decompensation and med/psych decompensation Time Spent With Patient Time: Total time managing care of this patient today _30___ minutes.
--- NOTE | 2024-11-01 09:55 | MHC.CLN ---
NUTRITION PATIENT WITH VERY POOR PO. ADDING ENSURE TID TO PROMOTE NUTRITIONAL INTAKE. SUPPLEMENT PROVIDES [address], [address] TO FOLLOW FOR PO INTAKE.
[2024-11-01 10:15] VITALS: BP 130/67; PULSE 81; RESP 14; TEMP 37; O2SAT 91
[2024-11-01] MEDS: Ferrous Sulfate 324 MG TABLET.DR PO (10:27)
[2024-11-01] MEDS: 0.9 % Sodium Chloride Flush 10 ML SYRINGE 5 ML IVFLUSH ×3 (10:27→23:48)
[2024-11-01 11:07] LABS: Appearance Urine Clear; Glucose Urine UA Negative (Negative); PH 6.5 (5.0-9.0); Specific Gravity - Urine 1.020 (1.005-1.025); UMIC TRIGGER UACC YES
[2024-11-01 11:12] LABS: UACC Culture Trigger YES
--- NOTE | 2024-11-01 17:42 | PM.EVENT ---
Event Note Date of Service: 11/01/24 Event Note: UTI UA c/w UTI based on previous urine culture sensitivities will treat with Bactrim x7 days follow results of current urine culture urinary retention has been straight cathed multiple times, recommend to place au catheter- seen by urology on last admission who recommended keep Au catheter in place for 2 weeks if fails voiding trial after that time, would recommend urology consult continue proscar and flomax Time Spent With Patient Time: Total time managing care of this patient today ____ minutes.
[2024-11-01] MEDS: Sulfamethox/Trimeth 800/160 TABLET 1 TAB PO (18:55)
[2024-11-01 20:00] VITALS: BP 118/74; PULSE 76; RESP 18; TEMP 36.3; O2SAT 94
[2024-11-01] MEDS: Milk of Magnesia 30 ML ORAL.SUSP 5 ML PO (20:00)
[2024-11-01] MEDS: Divalproex Sodium Sprinkles 125 MG CAP.DR.SPR 500 MG PO (20:00)
--- NOTE | 2024-11-01 23:25 | P.PNPSI_ITS ---
Subjective Subjective Date of Service: 11/01/24 Reason For Visit: Catatonia Subjective Notes: Conditional Voluntary Interim History: pt seen chart reviewed case reviewed in treatment planning case discussed with hospitalist service patient seen. Patient remains Catatonic psychomotor retarded mostly in bed some intake has been taking in food and fluids much encouragement. Urinary retention noted Medication Compliance: Yes Mental Status Exam Mental Status Exam Narrative: Patient seen his room. Lying in bed with head of bed up wearing hospital clothes Angst expression on his face. Mood appears depressed constricted mostly mute very long delay in one-word responses he was able to state his favorite ice cream is Vanilla Did not respond when asked about voices or thoughts of harm to himself no gross tremor Diagnostics Vital Signs (24Hr): Vital Signs - 24 hr 11/01/24 10:15 11/01/24 20:00 Temperature 98.6 F 97.3 F Pulse Rate 81 76 Respiratory Rate 14 18 Blood Pressure 130/67 118/74 Pulse Oximetry 91 L 94 Oxygen Delivery Method Room Air Room Air BMI result Body Mass Index 27.3 Labs 10/27/24 20:24 10/30/24 13:09 Labs: Laboratory Results - last 48 hr 10/27/24 11/01/24 23:54 10:10 Urine Color Yellow Urine Appearance Clear Urine pH 6.5 Ur Specific [place] 1.020 Urine Protein Negative Urine Glucose (UA) Negative Urine Ketones 15 Urine Blood Trace H Urine Nitrite Positive H Ur Leukocyte Esterase Moderate (2+) H Urine RBC 3-5 H Urine WBC 11-20 H Ur Squamous Epith Cells 0-2 Urine Bacteria 4+ Hyaline Casts 0-2 Clozapine 76 Norclozapine 34 Imaging Radiology Impressions: ITS Impressions KUB X-Ray 10/28/24 16:45 IMPRESSION: Again seen is a large amount of stool throughout the colon and rectum. Electronically signed by: Jose J Gonzalez MD 10/28/2024 05:20 PM EDT Medications Medications Current Medications Acetaminophen (Acetaminophen 325 Mg Tablet) 650 mg PO Q6H PRN PRN Reason: Headache/Pain, Scale 1-10 Last Admin: 11/01/24 20:01 Dose: 650 mg Al Hydroxide/Mg Hydroxide (Magnesium Hydrox/Alum Hydrox 30 Ml Oral.Susp) 30 ml PO Q6H PRN PRN Reason: Heartburn/Nausea Aripiprazole (Aripiprazole 5 Mg Tablet) 5 mg PO DAILY@1730 [facility] Last Admin: 11/01/24 17:17 Dose: 5 mg Ascorbic Acid (Ascorbic Acid 500 Mg Tablet) 500 mg PO DAILY [facility] Last Admin: 11/01/24 10:27 Dose: 500 mg Clozapine (Clozapine 25 Mg Tablet) 150 mg PO DAILY@1999 [facility] Last Admin: 11/01/24 20:00 Dose: 150 mg Divalproex Sodium (Divalproex Sodium Sprinkles 125 Mg Cap.Dr.Spr) 500 mg PO DAILY@1999 [facility] Last Admin: 11/01/24 20:00 Dose: 500 mg Ferrous Sulfate (Ferrous Sulfate 324 Mg Tablet.Dr) 324 mg PO DAILY [facility] Last Admin: 11/01/24 10:27 Dose: 324 mg Finasteride (Finasteride 5 Mg Tablet) 5 mg PO DAILY [facility] Last Admin: 11/01/24 10:26 Dose: 5 mg Magnesium Hydroxide (Milk Of Magnesia 30 Ml Oral.Susp) 30 ml PO DAILY PRN PRN Reason: Constipation Magnesium Hydroxide (Milk Of Magnesia 30 Ml Oral.Susp) 5 ml PO BEDTIME [facility] Last Admin: 11/01/24 20:00 Dose: 5 ml Mirtazapine (Mirtazapine 15 Mg Tablet) 15 mg PO BEDTIME [facility] Last Admin: 11/01/24 20:02 Dose: 15 mg Olanzapine (Olanzapine Odt 10 Mg Tab.Rapdis) 5 mg TRANSLINGU BID PRN PRN Reason: agitation Polyethylene Glycol (Polyethylene Glycol 3350 17 Gm Powd.Pack) 17 gm PO DAILY [facility] Last Admin: 11/01/24 11:50 Dose: 17 gm Pramipexole Dihydrochloride (Pramipexole Di-Hcl 0.25 Mg Tablet) 0.5 mg PO TID [facility] Last Admin: 11/01/24 20:01 Dose: 0.5 mg Senna/Docusate Sodium (Sennosides/Docusate Sodium Tablet) 1 tab PO BID PRN PRN Reason: no BM for more than 3days Sertraline HCl (Sertraline Hcl 25 Mg Tablet) 75 mg PO DAILY [facility] Last Admin: 11/01/24 10:26 Dose: 75 mg Sodium Chloride (0.9 % Sodium Chloride Flush 10 Ml Syringe) 5 ml IVFLUSH QSHIFT [facility] Last Admin: 11/01/24 17:17 Dose: 5 ml Tamsulosin HCl (Tamsulosin Hcl 0.4 Mg Capsule) 0.8 mg PO BEDTIME [facility] Last Admin: 11/01/24 20:01 Dose: 0.8 mg Thiamine HCl (Thiamine Hcl 100 Mg Tablet) 100 mg PO DAILY [facility] Last Admin: 11/01/24 10:27 Dose: 100 mg Trazodone HCl (Trazodone Hcl 50 Mg Tablet) 50 mg PO BEDTIME PRN PRN Reason: Insomnia Last Admin: 11/01/24 20:02 Dose: 50 mg Trimethoprim/Sulfamethoxazole (Sulfamethox/Trimeth 800/160 Tablet) 1 tab PO Q12H [facility] Stop: 11/08/24 17:59 Last Admin: 11/01/24 18:55 Dose: 1 tab Allergies Allergies Allergy/AdvReac Type Severity Reaction Status Date / Time No Known Allergies (NKA) Allergy Unknown NONE Verified 10/27/24 19:26 Assessment & Plan Assessment & Plan (1) Schizoaffective disorder: Status: Acute Code(s): F25.9 - Schizoaffective disorder, unspecified (2) Catatonia: Status: Acute Code(s): F06.1 - Catatonic disorder due to known physiological condition (3) Essential hypertension: Status: Acute Code(s): I10 - Essential (primary) hypertension (4) Urinary retention with incomplete bladder emptying: Status: Acute Code(s): R33.9 - Retention of urine, unspecified Plan Mr. 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 He had responded to ketamine treatment, failed ECT with further complications including aspiration. He presents with catatonia again including mutism, waxy flexibility. He had one ketamine treatment since he was discharged from the hospital and only partial dose. He was recommended to do weekly ketamine treatments to prevent catatonia. reports he was taking medications as prescribed. Pending clozapine/norclozapine levels. PLAN 1. Admit to , Sect 12b, 1:1 unsteady gait 2. will check KUB for constipation as pt very poor historian but reports no BM in several days. Will also check bladder scan post void to rule out overflow incontinence due to urinary retention since reports increase incontinence in past few days. Note that he was straight cath while in the ED. 3. restart medications- abilify, sertraline, clozapine, low dose depakote 4. obtain collateral information 5. aftercare panning. 10/29/24 Pt to restart ketamine hcp in effect on 12 b at present 10/30/2024 Patient now on CV by healthcare proxy. Ketamine protocol ordered for the morning the that was previously quite helpful in treating patients catatonia has not responded previously well to lorazepam had only intermittent response to ECT here proxy does not wish ECT treatment and did respond to ketamine Medications continue that previously had been helpful on recent discharge 10/31/2024 Patient given 1st ketamine treatment had respondent previously to a series no change this point. Encourage food and fluids face anxious in appearance mostly mute minimally responsive catatonic symptoms continue. Continue Abilify mirtazapine sertraline Clozaril 150 mg Continue ketamine trial 11/01/2024 Patient remains generally unchanged. Continue clozapine sertraline mirtazapine Abilify 5 mg pramipexole 0.5 t.i.d. part of previous catatonia algorithm. Ketamine scheduled when possible had previously been quite helpful was previously on a 2 week 2 times a week schedule Urinary retention positive urine culture case discussed hospitalist service. Hospitalist consult called. Plan for antibiotics and Dove catheter and then trial without the catheter as possible check electrolytes in the morning may benefit from fluid replacement. Maintain head of the bed elevated supportive nursing care plan to reduce possible congestion Reason for continued inpatient stay Substantial Risk for: inability to function, rapid decompensation and med/psych decompensation Time Spent With Patient Time: Total time managing care of this patient today ____ minutes.
[2024-11-02] MEDS: Sulfamethox/Trimeth 800/160 TABLET 1 TAB PO ×2 (06:07→16:51)
[2024-11-02 08:00] VITALS: BP 135/74; PULSE 71; RESP 14; TEMP 2.5; TEMP 36.5; O2SAT 95
[2024-11-02 09:09] LABS: Alanine Aminotransferase 11 U/L (0-40); Albumin Level 4.0 g/dL (3.5-5.0); Alkaline Phosphatase 48 U/L (39-117); Anion Gap 11 (12-20); Aspartate Amino Transferase 14 U/L (5-37); Blood Urea Nitrogen 25 mg/dL (9-16); Calcium 8.7 mg/dL (8.4-10.2); Carbon Dioxide 27 mmol/L (22-29); Chloride 107 mmol/L (96-108); Creatinine Clr Calc Pharmacy 57.7; Estimated Glomerular Filt Rate 50; Potassium 4.3 mmol/L (3.3-5.1); Sodium 141 mmol/L (135-145); Total Protein 6.4 g/dL (6.5-8.0)
[2024-11-02] MEDS: 0.9 % Sodium Chloride Flush 10 ML SYRINGE 5 ML IVFLUSH ×3 (10:49→23:04)
--- NOTE | 2024-11-02 11:52 | HO.PSYCHPN ---
Subjective Subjective Date of Service: 11/02/24 Reason For Visit: Catatonia Subjective Notes: Conditional Voluntary Interim History: Group patient was seen and discussed in rounds today. Records and plans were reviewed. He has started to receive IV ketamine treatment. Continues to be mostly catatonic with very scant verbal output. Refused all meds this morning. He has a Dove catheter in place. No changes were made today. He is being fed most of the time Review of Systems Review of Systems Yes Unobtainable due to mental status Mental Status Exam Mental Status Exam Narrative: He is alert but not responsive. No speech. Eye contact. Diagnostics Vital Signs (24Hr): Vital Signs - 24 hr 11/01/24 20:00 11/02/24 08:00 Temperature 97.3 F 36.5 F L Pulse Rate 76 71 Respiratory Rate 18 14 Blood Pressure 118/74 135/74 Pulse Oximetry 94 95 Oxygen Delivery Method Room Air Room Air BMI result Body Mass Index 27.3 Labs 10/27/24 20:24 11/02/24 07:39 Labs: Laboratory Results - last 48 hr 11/01/24 11/02/24 10:10 07:39 Sodium 141 Potassium 4.3 Chloride 107 Carbon Dioxide 27 Anion Gap 11 L BUN 25 H Creatinine 1.43 H Estim Creat Clear Calc 57.7 Estimated GFR 50 Fasting Glucose 99 Calcium 8.7 Total Bilirubin 0.4 AST 14 ALT 11 Alkaline Phosphatase 48 Total Protein 6.4 L Albumin 4.0 Urine Color Yellow Urine Appearance Clear Urine pH 6.5 Ur Specific [place] 1.020 Urine Protein Negative Urine Glucose (UA) Negative Urine Ketones 15 Urine Blood Trace H Urine Nitrite Positive H Ur Leukocyte Esterase Moderate (2+) H Urine RBC 3-5 H Urine WBC 11-20 H Ur Squamous Epith Cells 0-2 Urine Bacteria 4+ Hyaline Casts 0-2 Imaging Radiology Impressions: ITS Impressions KUB X-Ray 10/28/24 16:45 IMPRESSION: Again seen is a large amount of stool throughout the colon and rectum. Electronically signed by: Jose J Gonzalez MD 10/28/2024 05:20 PM EDT Medications Medications Current Medications Acetaminophen (Acetaminophen 325 Mg Tablet) 650 mg PO Q6H PRN PRN Reason: Headache/Pain, Scale 1-10 Last Admin: 11/01/24 20:01 Dose: 650 mg Al Hydroxide/Mg Hydroxide (Magnesium Hydrox/Alum Hydrox 30 Ml Oral.Susp) 30 ml PO Q6H PRN PRN Reason: Heartburn/Nausea Aripiprazole (Aripiprazole 5 Mg Tablet) 5 mg PO DAILY@1730 [facility] Last Admin: 11/01/24 17:17 Dose: 5 mg Ascorbic Acid (Ascorbic Acid 500 Mg Tablet) 500 mg PO DAILY [facility] Last Admin: 11/02/24 08:34 Dose: Not Given Clozapine (Clozapine 25 Mg Tablet) 150 mg PO DAILY@1999 [facility] Last Admin: 11/01/24 20:00 Dose: 150 mg Divalproex Sodium (Divalproex Sodium Sprinkles 125 Mg Cap..Sunil) 500 mg PO DAILY@1999 [facility] Last Admin: 11/01/24 20:00 Dose: 500 mg Ferrous Sulfate (Ferrous Sulfate 324 Mg Tablet.) 324 mg PO DAILY [facility] Last Admin: 11/02/24 08:34 Dose: Not Given Finasteride (Finasteride 5 Mg Tablet) 5 mg PO DAILY [facility] Last Admin: 11/02/24 08:34 Dose: Not Given Magnesium Hydroxide (Milk Of Magnesia 30 Ml Oral.Susp) 30 ml PO DAILY PRN PRN Reason: Constipation Magnesium Hydroxide (Milk Of Magnesia 30 Ml Oral.Susp) 5 ml PO BEDTIME [facility] Last Admin: 11/01/24 20:00 Dose: 5 ml Mirtazapine (Mirtazapine 15 Mg Tablet) 15 mg PO BEDTIME [facility] Last Admin: 11/01/24 20:02 Dose: 15 mg Olanzapine (Olanzapine Odt 10 Mg Tab.Rapdis) 5 mg TRANSLINGU BID PRN PRN Reason: agitation Polyethylene Glycol (Polyethylene Glycol 3350 17 Gm Powd.Pack) 17 gm PO DAILY [facility] Last Admin: 11/02/24 10:50 Dose: Not Given Pramipexole Dihydrochloride (Pramipexole Di-Hcl 0.25 Mg Tablet) 0.5 mg PO TID [facility] Last Admin: 11/02/24 08:34 Dose: Not Given Senna/Docusate Sodium (Sennosides/Docusate Sodium Tablet) 1 tab PO BID PRN PRN Reason: no BM for more than 3days Sertraline HCl (Sertraline Hcl 25 Mg Tablet) 75 mg PO DAILY [facility] Last Admin: 11/02/24 08:35 Dose: Not Given Sodium Chloride (0.9 % Sodium Chloride Flush 10 Ml Syringe) 5 ml IVFLUSH QSHIFT [facility] Last Admin: 11/02/24 10:49 Dose: 5 ml Tamsulosin HCl (Tamsulosin Hcl 0.4 Mg Capsule) 0.8 mg PO BEDTIME [facility] Last Admin: 11/01/24 20:01 Dose: 0.8 mg Thiamine HCl (Thiamine Hcl 100 Mg Tablet) 100 mg PO DAILY [facility] Last Admin: 11/02/24 08:35 Dose: Not Given Trazodone HCl (Trazodone Hcl 50 Mg Tablet) 50 mg PO BEDTIME PRN PRN Reason: Insomnia Last Admin: 11/01/24 20:02 Dose: 50 mg Trimethoprim/Sulfamethoxazole (Sulfamethox/Trimeth 800/160 Tablet) 1 tab PO Q12H [facility] Stop: 11/08/24 17:59 Last Admin: 11/02/24 06:07 Dose: 1 tab Allergies Allergies Allergy/AdvReac Type Severity Reaction Status Date / Time No Known Allergies (NKA) Allergy Unknown NONE Verified 10/27/24 19:26 Assessment & Plan Assessment & Plan (1) Schizoaffective disorder: Status: Acute Code(s): F25.9 - Schizoaffective disorder, unspecified (2) Catatonia: Status: Acute Code(s): F06.1 - Catatonic disorder due to known physiological condition (3) Essential hypertension: Status: Acute Code(s): I10 - Essential (primary) hypertension (4) Urinary retention with incomplete bladder emptying: Status: Acute Code(s): R33.9 - Retention of urine, unspecified Plan Mr. 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 He had responded to ketamine treatment, failed ECT with further complications including aspiration. He presents with catatonia again including mutism, waxy flexibility. He had one ketamine treatment since he was discharged from the hospital and only partial dose. He was recommended to do weekly ketamine treatments to prevent catatonia. reports he was taking medications as prescribed. Pending clozapine/norclozapine levels. PLAN 1. Admit to , Sect 12b, 1:1 unsteady gait 2. will check KUB for constipation as pt very poor historian but reports no BM in several days. Will also check bladder scan post void to rule out overflow incontinence due to urinary retention since reports increase incontinence in past few days. Note that he was straight cath while in the ED. 3. restart medications- abilify, sertraline, clozapine, low dose depakote 4. obtain collateral information 5. aftercare panning. 10/29/24 Pt to restart ketamine hcp in effect on 12 b at present 10/30/2024 Patient now on CV by healthcare proxy. Ketamine protocol ordered for the morning the that was previously quite helpful in treating patients catatonia has not responded previously well to lorazepam had only intermittent response to ECT here proxy does not wish ECT treatment and did respond to ketamine Medications continue that previously had been helpful on recent discharge 10/31/2024 Patient given 1st ketamine treatment had respondent previously to a series no change this point. Encourage food and fluids face anxious in appearance mostly mute minimally responsive catatonic symptoms continue. Continue Abilify mirtazapine sertraline Clozaril 150 mg Continue ketamine trial 11/01/2024 Patient remains generally unchanged. Continue clozapine sertraline mirtazapine Abilify 5 mg pramipexole 0.5 t.i.d. part of previous catatonia algorithm. Ketamine scheduled when possible had previously been quite helpful was previously on a 2 week 2 times a week schedule Urinary retention positive urine culture case discussed hospitalist service. Hospitalist consult called. Plan for antibiotics and Dove catheter and then trial without the catheter as possible check electrolytes in the morning may benefit from fluid replacement. Maintain head of the bed elevated supportive nursing care plan to reduce possible congestion 11/02: Continue current regimen and plans Reason for continued inpatient stay Substantial Risk for: inability to function Time Spent With Patient Time: Total time managing care of this patient today ____ minutes.
[2024-11-02 20:00] VITALS: BP 138/65; PULSE 78; RESP 18; TEMP 36.4; O2SAT 94
[2024-11-02] MEDS: Divalproex Sodium Sprinkles 125 MG CAP.DR.SPR 500 MG PO (20:49)
[2024-11-02] MEDS: Milk of Magnesia 30 ML ORAL.SUSP 5 ML PO (20:50)
[2024-11-03] MEDS: Sulfamethox/Trimeth 800/160 TABLET 1 TAB PO ×2 (06:29→17:25)
[2024-11-03 08:00] VITALS: BP 111/63; PULSE 69; RESP 14; TEMP 36.5; O2SAT 94
[2024-11-03 08:21] LABS: MANUAL DIFF FLAG NO
[2024-11-03 08:34] LABS: Hematocrit 38.2 % (42.0-52.0); Hemoglobin 12.6 g/dl (14.0-18.0); Imm Gran Abs Auto 0.03 X10*3/uL (0.00-0.03); Imm Gran Pct Auto 0.5 % (0.0-0.4); Lymphocytes Absolute Auto 1.2 X10*3/uL (1.2-4.9); Mean Corpuscular HGB Conc 33.0 g/dl (31.0-36.0); Mean Corpuscular Hemoglobin 29.1 pg (27.0-33.0); Mean Corpuscular Volume 88.2 fL (80.0-98.0); NRBC Abs Auto 0.000 X10*3/uL (0.0-0.012); NRBC Pct Auto 0.0 /100WBC (0.0-0.2); Platelet Count 152 X10*3/uL (160-400); Red Blood Count 4.33 X10*6/uL (4.60-5.80); White Blood Count 6.3 X10*3/uL (4.8-10.8)
[2024-11-03] MEDS: Ferrous Sulfate 324 MG TABLET.DR PO (08:41)
--- NOTE | 2024-11-03 10:36 | P.PNPSI_ITS ---
Subjective Subjective Date of Service: 11/03/24 Reason For Visit: Catatonia Subjective Notes: Conditional Voluntary Interim History: Group patient was seen and discussed in rounds today. Records and plans were reviewed. He continues to be catatonic with limited intake. Only responds in 1 or 2 word answers or not at all. He is mostly in bed but gets up for meals. He needs to be fed. No improvements with the ketamine as of yet but hopefully it will improve this week. Review of Systems Review of Systems Yes Unobtainable due to mental status Mental Status Exam Mental Status Exam Narrative: He is alert but not responsive except for 1 or 2 words. Very soft speech. No eye contact. Diagnostics Vital Signs (24Hr): Vital Signs - 24 hr 11/02/24 20:00 Temperature 97.5 F Pulse Rate 78 Respiratory Rate 18 Blood Pressure 138/65 Pulse Oximetry 94 Oxygen Delivery Method Room Air BMI result Body Mass Index 27.3 Labs 11/03/24 08:16 11/02/24 07:39 Labs: Laboratory Results - last 48 hr 11/01/24 11/02/24 11/03/24 10:10 07:39 08:16 WBC 6.3 RBC 4.33 L Hgb 12.6 L Hct 38.2 L MCV 88.2 MCH 29.1 MCHC 33.0 RDW 13.2 Plt Count 152 L MPV 11.2 Immature Gran % (Auto) 0.5 H Neut % (Auto) 71.4 Lymph % (Auto) 19.4 L [place] % (Auto) 8.3 Eos % (Auto) 0.2 Baso % (Auto) 0.2 Lymph # (Auto) 1.2 [place] # (Auto) 0.5 Eos # (Auto) 0.0 Baso # (Auto) 0.0 Abs Immat Gran (auto) 0.03 Absolute Neuts (auto) 4.5 Absolute Nucleated RBC 0.000 Nucleated RBC % (auto) 0.0 Sodium 141 Potassium 4.3 Chloride 107 Carbon Dioxide 27 Anion Gap 11 L BUN 25 H Creatinine 1.43 H Estim Creat Clear Calc 57.7 Estimated GFR 50 Fasting Glucose 99 Calcium 8.7 Total Bilirubin 0.4 AST 14 ALT 11 Alkaline Phosphatase 48 Total Protein 6.4 L Albumin 4.0 Urine Color Yellow Urine Appearance Clear Urine pH 6.5 Ur Specific [place] 1.020 Urine Protein Negative Urine Glucose (UA) Negative Urine Ketones 15 Urine Blood Trace H Urine Nitrite Positive H Ur Leukocyte Esterase Moderate (2+) H Urine RBC 3-5 H Urine WBC 11-20 H Ur Squamous Epith Cells 0-2 Urine Bacteria 4+ Hyaline Casts 0-2 Imaging Radiology Impressions: ITS Impressions KUB X-Ray 10/28/24 16:45 IMPRESSION: Again seen is a large amount of stool throughout the colon and rectum. Electronically signed by: Jose J Gonzalez MD 10/28/2024 05:20 PM EDT RP Medications Medications Current Medications Acetaminophen (Acetaminophen 325 Mg Tablet) 650 mg PO Q6H PRN PRN Reason: Headache/Pain, Scale 1-10 Last Admin: 11/01/24 20:01 Dose: 650 mg Al Hydroxide/Mg Hydroxide (Magnesium Hydrox/Alum Hydrox 30 Ml Oral.Susp) 30 ml PO Q6H PRN PRN Reason: Heartburn/Nausea Aripiprazole (Aripiprazole 5 Mg Tablet) 5 mg PO DAILY@1730 [facility] Last Admin: 11/02/24 16:51 Dose: 5 mg Ascorbic Acid (Ascorbic Acid 500 Mg Tablet) 500 mg PO DAILY [facility] Last Admin: 11/03/24 08:50 Dose: Not Given Clozapine (Clozapine 25 Mg Tablet) 150 mg PO DAILY@1999 [facility] Last Admin: 11/02/24 20:49 Dose: 150 mg Divalproex Sodium (Divalproex Sodium Sprinkles 125 Mg Cap.Dr.Spr) 500 mg PO DAILY@1999 [facility] Last Admin: 11/02/24 20:49 Dose: 500 mg Ferrous Sulfate (Ferrous Sulfate 324 Mg Tablet.) 324 mg PO DAILY [facility] Last Admin: 11/03/24 08:41 Dose: 324 mg Finasteride (Finasteride 5 Mg Tablet) 5 mg PO DAILY [facility] Last Admin: 11/03/24 08:41 Dose: 5 mg Magnesium Hydroxide (Milk Of Magnesia 30 Ml Oral.Susp) 30 ml PO DAILY PRN PRN Reason: Constipation Magnesium Hydroxide (Milk Of Magnesia 30 Ml Oral.Susp) 5 ml PO BEDTIME [facility] Last Admin: 11/02/24 20:50 Dose: 5 ml Mirtazapine (Mirtazapine 15 Mg Tablet) 15 mg PO BEDTIME [facility] Last Admin: 11/02/24 20:49 Dose: 15 mg Olanzapine (Olanzapine Odt 10 Mg Tab.Rapdis) 5 mg TRANSLINGU BID PRN PRN Reason: agitation Polyethylene Glycol (Polyethylene Glycol 3350 17 Gm Powd.Pack) 17 gm PO DAILY [facility] Last Admin: 11/03/24 08:39 Dose: 17 gm Pramipexole Dihydrochloride (Pramipexole Di-Hcl 0.25 Mg Tablet) 0.5 mg PO TID [facility] Last Admin: 11/03/24 08:51 Dose: 0.25 mg Senna/Docusate Sodium (Sennosides/Docusate Sodium Tablet) 1 tab PO BID PRN PRN Reason: no BM for more than 3days Sertraline HCl (Sertraline Hcl 25 Mg Tablet) 75 mg PO DAILY [facility] Last Admin: 11/03/24 08:40 Dose: 75 mg Sodium Chloride (0.9 % Sodium Chloride Flush 10 Ml Syringe) 5 ml IVFLUSH QSHIFT [facility] Last Admin: 11/02/24 23:04 Dose: 5 ml Tamsulosin HCl (Tamsulosin Hcl 0.4 Mg Capsule) 0.8 mg PO BEDTIME [facility] Last Admin: 11/02/24 20:49 Dose: 0.8 mg Thiamine HCl (Thiamine Hcl 100 Mg Tablet) 100 mg PO DAILY [facility] Last Admin: 11/03/24 08:41 Dose: 100 mg Trazodone HCl (Trazodone Hcl 50 Mg Tablet) 50 mg PO BEDTIME PRN PRN Reason: Insomnia Last Admin: 11/02/24 20:49 Dose: 50 mg Trimethoprim/Sulfamethoxazole (Sulfamethox/Trimeth 800/160 Tablet) 1 tab PO Q12H [facility] Stop: 11/08/24 17:59 Last Admin: 11/03/24 06:29 Dose: 1 tab Allergies Allergies Allergy/AdvReac Type Severity Reaction Status Date / Time No Known Allergies (NKA) Allergy Unknown NONE Verified 10/27/24 19:26 Assessment & Plan Assessment & Plan (1) Schizoaffective disorder: Status: Acute Code(s): F25.9 - Schizoaffective disorder, unspecified (2) Catatonia: Status: Acute Code(s): F06.1 - Catatonic disorder due to known physiological condition (3) Essential hypertension: Status: Acute Code(s): I10 - Essential (primary) hypertension (4) Urinary retention with incomplete bladder emptying: Status: Acute Code(s): R33.9 - Retention of urine, unspecified Plan Mr. 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 He had responded to ketamine treatment, failed ECT with further complications including aspiration. He presents with catatonia again including mutism, waxy flexibility. He had one ketamine treatment since he was discharged from the hospital and only partial dose. He was recommended to do weekly ketamine treatments to prevent catatonia. reports he was taking medications as prescribed. Pending clozapine/norclozapine levels. PLAN 1. Admit to , Sect 12b, 1:1 unsteady gait 2. will check KUB for constipation as pt very poor historian but reports no BM in several days. Will also check bladder scan post void to rule out overflow incontinence due to urinary retention since reports increase incontinence in past few days. Note that he was straight cath while in the ED. 3. restart medications- abilify, sertraline, clozapine, low dose depakote 4. obtain collateral information 5. aftercare panning. 10/29/24 Pt to restart ketamine hcp in effect on 12 b at present 10/30/2024 Patient now on CV by healthcare proxy. Ketamine protocol ordered for the morning the that was previously quite helpful in treating patients catatonia has not responded previously well to lorazepam had only intermittent response to ECT here proxy does not wish ECT treatment and did respond to ketamine Medications continue that previously had been helpful on recent discharge 10/31/2024 Patient given 1st ketamine treatment had respondent previously to a series no change this point. Encourage food and fluids face anxious in appearance mostly mute minimally responsive catatonic symptoms continue. Continue Abilify mirtazapine sertraline Clozaril 150 mg Continue ketamine trial 11/01/2024 Patient remains generally unchanged. Continue clozapine sertraline mirtazapine Abilify 5 mg pramipexole 0.5 t.i.d. part of previous catatonia algorithm. Ketamine scheduled when possible had previously been quite helpful was previously on a 2 week 2 times a week schedule Urinary retention positive urine culture case discussed hospitalist service. Hospitalist consult called. Plan for antibiotics and Dove catheter and then trial without the catheter as possible check electrolytes in the morning may benefit from fluid replacement. Maintain head of the bed elevated supportive nursing care plan to reduce possible congestion 11/02: Continue current regimen and plans 11/03: Continue current plans and regimen Reason for continued inpatient stay Substantial Risk for: inability to function Time Spent With Patient Time: Total time managing care of this patient today ____ minutes.
[2024-11-03] MEDS: 0.9 % Sodium Chloride Flush 10 ML SYRINGE 5 ML IVFLUSH ×3 (11:20→23:27)
[2024-11-03 19:31] VITALS: BP 129/63; PULSE 89; RESP 18; TEMP 36.3; O2SAT 95
[2024-11-03] MEDS: Divalproex Sodium Sprinkles 125 MG CAP.DR.SPR 500 MG PO (20:41)
[2024-11-03] MEDS: Milk of Magnesia 30 ML ORAL.SUSP 5 ML PO (20:43)
[2024-11-04] MEDS: Sulfamethox/Trimeth 800/160 TABLET 1 TAB PO ×2 (06:08→17:48)
[2024-11-04] MEDS: 0.9 % Sodium Chloride Flush 10 ML SYRINGE 5 ML IVFLUSH ×3 (08:38→23:39)
[2024-11-04] MEDS: Ferrous Sulfate 324 MG TABLET.DR PO (08:43)
[2024-11-04 08:49] VITALS: BP 109/65; PULSE 86; RESP 20; TEMP 36.7; O2SAT 96
--- NOTE | 2024-11-04 09:29 | P.PNIM_ITS ---
Subjective Subjective Date of Service: 11/04/24 Physical Exam 2 Vital Signs: Vital Signs: Last Vital Signs Temp 98.1 F 11/04/24 08:49 Pulse 86 11/04/24 08:49 Resp 20 11/04/24 08:49 BP 109/65 11/04/24 08:49 Pulse Ox 96 11/04/24 08:49 O2 Del Method Room Air 11/04/24 08:49 BMI result Body Mass Index 27.3 Objective Data Active Medications Acetaminophen (Acetaminophen 325 Mg Tablet) 650 mg PO Q6H PRN PRN Reason: Headache/Pain, Scale 1-10 Last Admin: 11/01/24 20:01 Dose: 650 mg Documented By: SERGEY Al Hydroxide/Mg Hydroxide (Magnesium Hydrox/Alum Hydrox 30 Ml Oral.Susp) 30 ml PO Q6H PRN PRN Reason: Heartburn/Nausea Aripiprazole (Aripiprazole 5 Mg Tablet) 5 mg PO DAILY@1730 [facility] Last Admin: 11/03/24 17:25 Dose: 5 mg Documented By: KANE Ascorbic Acid (Ascorbic Acid 500 Mg Tablet) 500 mg PO DAILY [facility] Last Admin: 11/04/24 08:43 Dose: 500 mg Documented By: JIMBO Clozapine (Clozapine 25 Mg Tablet) 150 mg PO DAILY@1999 [facility] Last Admin: 11/03/24 20:41 Dose: 150 mg Documented By: ATNONIA Divalproex Sodium (Divalproex Sodium Sprinkles 125 Mg Cap.) 500 mg PO DAILY@1999 [facility] Last Admin: 11/03/24 20:41 Dose: 500 mg Documented By: ANTONIA Ferrous Sulfate (Ferrous Sulfate 324 Mg Popeye.) 324 mg PO DAILY [facility] Last Admin: 11/04/24 08:43 Dose: 324 mg Documented By: JIMBO Finasteride (Finasteride 5 Mg Tablet) 5 mg PO DAILY [facility] Last Admin: 11/04/24 08:43 Dose: 5 mg Documented By: JIMBO Ketamine HCl 45 mg/ Sodium (Chloride) 4.5 mls @ 4.5 mls/hr IV ONCE ONE Stop: 11/05/24 07:31 Ketamine HCl 45 mg/ Sodium (Chloride) 4.5 mls @ 4.5 mls/hr IV ONCE ONE Stop: 11/07/24 07:31 Magnesium Hydroxide (Milk Of Magnesia 30 Ml Oral.Susp) 30 ml PO DAILY PRN PRN Reason: Constipation Magnesium Hydroxide (Milk Of Magnesia 30 Ml Oral.Susp) 5 ml PO BEDTIME [facility] Last Admin: 11/03/24 20:43 Dose: 5 ml Documented By: ANTONIA Mirtazapine (Mirtazapine 15 Mg Tablet) 15 mg PO BEDTIME [facility] Last Admin: 11/03/24 20:42 Dose: 15 mg Documented By: ANTONIA Olanzapine (Olanzapine Odt 10 Mg Tab.Rapdis) 5 mg TRANSLINGU BID PRN PRN Reason: agitation Polyethylene Glycol (Polyethylene Glycol 3350 17 Gm Powd.Pack) 17 gm PO DAILY [facility] Last Admin: 11/04/24 08:44 Dose: 17 gm Documented By: JIMBO Pramipexole Dihydrochloride (Pramipexole Di-Hcl 0.25 Mg Tablet) 0.5 mg PO TID [facility] Last Admin: 11/04/24 08:42 Dose: 0.5 mg Documented By: JIMBO Senna/Docusate Sodium (Sennosides/Docusate Sodium Tablet) 1 tab PO BID PRN PRN Reason: no BM for more than 3days Sertraline HCl (Sertraline Hcl 25 Mg Tablet) 75 mg PO DAILY [facility] Last Admin: 11/04/24 08:42 Dose: 75 mg Documented By: JIMBO Sodium Chloride (0.9 % Sodium Chloride Flush 10 Ml Syringe) 5 ml IVFLUSH QSHIFT [facility] Last Admin: 11/04/24 08:38 Dose: 5 ml Documented By: JIMBO Tamsulosin HCl (Tamsulosin Hcl 0.4 Mg Capsule) 0.8 mg PO BEDTIME [facility] Last Admin: 11/03/24 20:42 Dose: 0.8 mg Documented By: ANTONIA Thiamine HCl (Thiamine Hcl 100 Mg Tablet) 100 mg PO DAILY [facility] Last Admin: 11/04/24 08:43 Dose: 100 mg Documented By: JIMBO Trazodone HCl (Trazodone Hcl 50 Mg Tablet) 50 mg PO BEDTIME PRN PRN Reason: Insomnia Last Admin: 11/02/24 20:49 Dose: 50 mg Documented By: SERGEY Trimethoprim/Sulfamethoxazole (Sulfamethox/Trimeth 800/160 Tablet) 1 tab PO Q12H [facility] Stop: 11/08/24 17:59 Last Admin: 11/04/24 06:08 Dose: 1 tab Documented By: ANTONIA Labs 11/03/24 08:16 11/02/24 07:39 Microbiology Microbiology Results: Microbiology 11/01/24 10:10 Urine Culture - Final Urine Catheterized - Straight Catheter Staphylococcus epidermidis Assessment and Plan (1) Urinary retention with incomplete bladder emptying: Status: Acute Plan 59 year-old male with hx of schizoaffective disorder, hypertension, urinary retention, type 2 diabetes, depression recently discharged from on 10/08/2024 after prolonged admission due to treatment resistant catatonia. He had responded to Ketamine treatment, failed ECT with further complications including aspiration. [facility] in [facility] status, he was found wandering in the streets soaked in urine. Depression with decompensation of schizophrenia, catatonia. Status post ketamine treatments, history of ECT with aspiration event Treatment per psych team. Urinary retention/BPH Continue Flomax 0.8mg, Finesteride Dove catheter in place. Follow up urology outpatient Dysphagia Tolerating diet, HOB up. OOB for meals. UTI Cultures reviewed, sensitive to Bactrim. Thank you for allowing me to participate in the care of this patient. Will continue to follow as needed. Please reconsult of any acute concerns or issues arise Quality Stroke Does the patient have a stroke diagnosis?: No VTE Prior VTE?: No VTE Risk Level:: Medical - low VTE Device Contraindication: Treatment Not Indicated VTE Drug Contraindication: Treatment Not Indicated
[2024-11-04 14:29] VITALS: BMI 27.3
--- NOTE | 2024-11-04 14:40 | MHC.CLN ---
F/U DIET=REGULAR. ENSURE TID (1050 KCALS, 60 G PROTEIN) TO PROMOTE NUTRITIONAL INTAKE. VERY POOR PO INTAKE MOST MEALS SINCE ADMIT. ATE VERY WELL AT [facility] TODAY AND ACCEPTED SUPPLEMENT. FOLLOW FOR PO INTAKE. RD TO MONITOR WEEKLY. SEE CLINICAL NUTRITION ASSESSMENT 11/04/24.
[2024-11-04 20:00] VITALS: BP 121/63; PULSE 87; RESP 17; TEMP 36.9; O2SAT 94
[2024-11-04] MEDS: Milk of Magnesia 30 ML ORAL.SUSP 5 ML PO (20:09)
[2024-11-04] MEDS: Divalproex Sodium Sprinkles 125 MG CAP.DR.SPR 500 MG PO (20:11)
--- NOTE | 2024-11-04 22:56 | HO.PSYCHPN ---
Subjective Subjective Date of Service: 10/28/24 Reason For Visit: Catatonia Subjective Notes: Conditional Voluntary Healthcare Proxy: Yes Interim History: Patient seen psychiatric follow-up. Patient pending ketamine infusion for tomorrow. Patient with very limited responses. Requires medication to be given in applesauce or pudding. Minimal ambulation mostly mute. Patient remains on one-to-one for safety Medication Compliance: Yes Mental Status Exam Mental Status Exam Narrative: Patient lethargic mostly mute minimal one-word responses mood anxious appearance nods his head yes depressed no noted active SI some paranoid concerns Diagnostics Vital Signs (24Hr): Vital Signs - 24 hr 11/04/24 08:49 11/04/24 20:00 Temperature 98.1 F 98.4 F Pulse Rate 86 87 Respiratory Rate 20 17 Blood Pressure 109/65 121/63 Pulse Oximetry 96 94 Oxygen Delivery Method Room Air Room Air BMI result Body Mass Index 27.3 Labs 11/03/24 08:16 11/02/24 07:39 Labs: Laboratory Results - last 48 hr 11/03/24 08:16 WBC 6.3 RBC 4.33 L Hgb 12.6 L Hct 38.2 L MCV 88.2 MCH 29.1 MCHC 33.0 RDW 13.2 Plt Count 152 L MPV 11.2 Immature Gran % (Auto) 0.5 H Neut % (Auto) 71.4 Lymph % (Auto) 19.4 L [place] % (Auto) 8.3 Eos % (Auto) 0.2 Baso % (Auto) 0.2 Lymph # (Auto) 1.2 [place] # (Auto) 0.5 Eos # (Auto) 0.0 Baso # (Auto) 0.0 Abs Immat Gran (auto) 0.03 Absolute Neuts (auto) 4.5 Absolute Nucleated RBC 0.000 Nucleated RBC % (auto) 0.0 Imaging Radiology Impressions: ITS Impressions KUB X-Ray 10/28/24 16:45 IMPRESSION: Again seen is a large amount of stool throughout the colon and rectum. Electronically signed by: Jose J Gonzalez MD 10/28/2024 05:20 PM EDT Medications Medications Current Medications Acetaminophen (Acetaminophen 325 Mg Tablet) 650 mg PO Q6H PRN PRN Reason: Headache/Pain, Scale 1-10 Last Admin: 11/01/24 20:01 Dose: 650 mg Al Hydroxide/Mg Hydroxide (Magnesium Hydrox/Alum Hydrox 30 Ml Oral.Susp) 30 ml PO Q6H PRN PRN Reason: Heartburn/Nausea Aripiprazole (Aripiprazole 5 Mg Tablet) 5 mg PO DAILY@1730 [facility] Last Admin: 11/04/24 17:48 Dose: 5 mg Ascorbic Acid (Ascorbic Acid 500 Mg Tablet) 500 mg PO DAILY [facility] Last Admin: 11/04/24 08:43 Dose: 500 mg Clozapine (Clozapine 25 Mg Tablet) 150 mg PO DAILY@1999 [facility] Last Admin: 11/04/24 20:11 Dose: 150 mg Divalproex Sodium (Divalproex Sodium Sprinkles 125 Mg Cap.) 500 mg PO DAILY@1999 [facility] Last Admin: 11/04/24 20:11 Dose: 500 mg Ferrous Sulfate (Ferrous Sulfate 324 Mg Tablet.) 324 mg PO DAILY [facility] Last Admin: 11/04/24 08:43 Dose: 324 mg Finasteride (Finasteride 5 Mg Tablet) 5 mg PO DAILY [facility] Last Admin: 11/04/24 08:43 Dose: 5 mg Ketamine HCl 45 mg/ Sodium (Chloride) 45 mls @ 45 mls/hr IV ONCE ONE Stop: 11/05/24 08:29 Ketamine HCl 45 mg/ Sodium (Chloride) 45 mls @ 45 mls/hr IV ONCE ONE Stop: 11/07/24 08:29 Magnesium Hydroxide (Milk Of Magnesia 30 Ml Oral.Susp) 30 ml PO DAILY PRN PRN Reason: Constipation Magnesium Hydroxide (Milk Of Magnesia 30 Ml Oral.Susp) 5 ml PO BEDTIME [facility] Last Admin: 11/04/24 20:09 Dose: 5 ml Mirtazapine (Mirtazapine 15 Mg Tablet) 15 mg PO BEDTIME [facility] Last Admin: 11/04/24 20:12 Dose: 15 mg Olanzapine (Olanzapine Odt 10 Mg Tab.Rapdis) 5 mg TRANSLINGU BID PRN PRN Reason: agitation Polyethylene Glycol (Polyethylene Glycol 3350 17 Gm Powd.Pack) 17 gm PO DAILY [facility] Last Admin: 11/04/24 08:44 Dose: 17 gm Pramipexole Dihydrochloride (Pramipexole Di-Hcl 0.25 Mg Tablet) 0.5 mg PO TID [facility] Last Admin: 11/04/24 20:12 Dose: 0.5 mg Senna/Docusate Sodium (Sennosides/Docusate Sodium Tablet) 1 tab PO BID PRN PRN Reason: no BM for more than 3days Sertraline HCl (Sertraline Hcl 25 Mg Tablet) 75 mg PO DAILY [facility] Last Admin: 11/04/24 08:42 Dose: 75 mg Sodium Chloride (0.9 % Sodium Chloride Flush 10 Ml Syringe) 5 ml IVFLUSH QSHIFT [facility] Last Admin: 11/04/24 17:06 Dose: 5 ml Tamsulosin HCl (Tamsulosin Hcl 0.4 Mg Capsule) 0.8 mg PO BEDTIME [facility] Last Admin: 11/04/24 20:12 Dose: 0.8 mg Thiamine HCl (Thiamine Hcl 100 Mg Tablet) 100 mg PO DAILY [facility] Last Admin: 11/04/24 08:43 Dose: 100 mg Trazodone HCl (Trazodone Hcl 50 Mg Tablet) 50 mg PO BEDTIME PRN PRN Reason: Insomnia Last Admin: 11/02/24 20:49 Dose: 50 mg Trimethoprim/Sulfamethoxazole (Sulfamethox/Trimeth 800/160 Tablet) 1 tab PO Q12H [facility] Stop: 11/08/24 17:59 Last Admin: 11/04/24 17:48 Dose: 1 tab Allergies Allergies Allergy/AdvReac Type Severity Reaction Status Date / Time No Known Allergies (NKA) Allergy Unknown NONE Verified 10/27/24 19:26 Assessment & Plan Assessment & Plan (1) Urinary retention with incomplete bladder emptying: Status: Acute Code(s): R33.9 - Retention of urine, unspecified (2) Schizoaffective disorder: Status: Acute Code(s): F25.9 - Schizoaffective disorder, unspecified (3) Catatonia: Status: Acute Code(s): F06.1 - Catatonic disorder due to known physiological condition (4) Essential hypertension: Status: Acute Code(s): I10 - Essential (primary) hypertension Plan 59 year-old male with hx of schizoaffective disorder, hypertension, urinary retention, type 2 diabetes, depression recently discharged from on 10/08/2024 after prolonged admission due to treatment resistant catatonia. He had responded to Ketamine treatment, failed ECT with further complications including aspiration. He presented from prison with a change in mental status, he was found wandering in the streets soaked in urine. Depression with decompensation of schizophrenia, catatonia. Status post ketamine treatments, history of ECT with aspiration event Treatment per psych team. Urinary retention/BPH Continue Flomax 0.8mg, Finesteride Dove catheter in place. Follow up urology outpatient Dysphagia Tolerating diet, HOB up. OOB for meals. UTI Cultures reviewed, sensitive to Bactrim. Thank you for allowing me to participate in the care of this patient. Will continue to follow as needed. Please reconsult of any acute concerns or issues arise 11/04/2024 Continue sertraline mirtazapine Abilify and clozapine. Intravenous ketamine scheduled for 11/05/2024 Informed Consent: does not understand Reason for continued inpatient stay Substantial Risk for: inability to function and rapid decompensation Time Spent With Patient Time: Total time managing care of this patient today ____ minutes.
[2024-11-05] VITALS (12 sets, daily range): BP systolic 109–123; BP diastolic 56–70; PULSE 67–82; RESP 16–18; TEMP 2.3–36.7; O2SAT 93–98
[2024-11-05] MEDS: Sulfamethox/Trimeth 800/160 TABLET 1 TAB PO ×2 (06:11→16:43)
[2024-11-05] MEDS: Ferrous Sulfate 324 MG TABLET.DR PO (10:21)
--- NOTE | 2024-11-05 15:43 | HO.MIDLINE ---
Midline Insertion MIDLINE INSERTION Diagnosis: psychiatric disorder Indication: Ketamine treatment Pertinent Labs: reviewed Technique: Using sterile technique including cap and mask, glove and drape, the right arm was prepped and draped in the usual sterile fashion of full barrier technique with CHG. Using ultrasound guidance, right cephalic vein access was obtained . 4fr single lumen nonPASV POWER MIDLINE was positioned. The procedure was performed in rm 272. Ultrasound was used to document vein patency and for needle entry. A formal ultrasound picture was recorded. Vascular [employer] Machine has released the line for use and it is currently dressed with a StatLock, Tegaderm, and CHG disc. Verification has been performed for blood return and line patency. Arm Circumference: 32cm Equipment: [employer] POWERMIDLINE catheter Catheter Type: 4fr single lumen non PASV Lot #: [id number]
--- NOTE | 2024-11-05 16:31 | HO.PSYCHPN ---
Subjective Subjective Date of Service: 11/05/24 Reason For Visit: Catatonia Subjective Notes: Conditional Voluntary Healthcare Proxy: Yes Interim History: Patient seen case discussed in rounds with staff. Nurses report no aggression some food fluid intake minimal ambulation. received ketamine infusion Mental Status Exam Mental Status Exam Narrative: Patient lethargic some inc verbal responses mood flat dyshoric appearance nods his head yes depressed no noted active SI HI some vague PI impule control intact Diagnostics Vital Signs (24Hr): Vital Signs - 24 hr 11/04/24 20:00 11/05/24 07:35 11/05/24 08:00 Temperature 98.4 F 98.1 F Pulse Rate 87 71 69 Respiratory Rate 17 16 18 Blood Pressure 121/63 121/56 L 116/68 Pulse Oximetry 94 95 94 Oxygen Delivery Method Room Air Room Air Room Air Oxygen Flow Rate 11/05/24 08:15 11/05/24 08:30 11/05/24 08:45 Temperature Pulse Rate 68 69 70 Respiratory Rate 16 16 18 Blood Pressure 109/66 117/66 123/69 Pulse Oximetry 98 98 98 Oxygen Delivery Method Nasal Cannula Nasal Cannula Nasal Cannula Oxygen Flow Rate 2 2 2 11/05/24 09:00 11/05/24 09:15 11/05/24 09:30 Temperature 97.2 F Pulse Rate 70 68 70 Respiratory Rate 18 18 18 Blood Pressure 120/70 116/65 121/66 Pulse Oximetry 98 98 98 Oxygen Delivery Method Nasal Cannula Nasal Cannula Nasal Cannula Oxygen Flow Rate 2 2 2 11/05/24 09:45 11/05/24 10:00 11/05/24 10:17 Temperature 97.7 F 36.2 F L Pulse Rate 70 82 67 Respiratory Rate 18 18 18 Blood Pressure 118/66 116/57 L Pulse Oximetry 98 95 96 Oxygen Delivery Method Nasal Cannula Room Air Room Air Oxygen Flow Rate 2 BMI result Body Mass Index 27.3 Labs 11/03/24 08:16 11/02/24 07:39 Imaging Radiology Impressions: ITS Impressions KUB X-Ray 10/28/24 16:45 IMPRESSION: Again seen is a large amount of stool throughout the colon and rectum. Electronically signed by: Jose J Gonzalez MD 10/28/2024 05:20 PM EDT Medications Medications Current Medications Acetaminophen (Acetaminophen 325 Mg Tablet) 650 mg PO Q6H PRN PRN Reason: Headache/Pain, Scale 1-10 Last Admin: 11/01/24 20:01 Dose: 650 mg Al Hydroxide/Mg Hydroxide (Magnesium Hydrox/Alum Hydrox 30 Ml Oral.Susp) 30 ml PO Q6H PRN PRN Reason: Heartburn/Nausea Aripiprazole (Aripiprazole 5 Mg Tablet) 5 mg PO DAILY@1730 [facility] Last Admin: 11/04/24 17:48 Dose: 5 mg Ascorbic Acid (Ascorbic Acid 500 Mg Tablet) 500 mg PO DAILY [facility] Last Admin: 11/05/24 10:20 Dose: 500 mg Clozapine (Clozapine 25 Mg Tablet) 150 mg PO DAILY@1999 [facility] Last Admin: 11/04/24 20:11 Dose: 150 mg Divalproex Sodium (Divalproex Sodium Sprinkles 125 Mg Cap.) 500 mg PO DAILY@1999 [facility] Last Admin: 11/04/24 20:11 Dose: 500 mg Ferrous Sulfate (Ferrous Sulfate 324 Mg Tablet.) 324 mg PO DAILY [facility] Last Admin: 11/05/24 10:21 Dose: 324 mg Finasteride (Finasteride 5 Mg Tablet) 5 mg PO DAILY [facility] Last Admin: 11/05/24 10:20 Dose: 5 mg Ketamine HCl 45 mg/ Sodium (Chloride) 45 mls @ 45 mls/hr IV ONCE ONE Stop: 11/07/24 08:29 Magnesium Hydroxide (Milk Of Magnesia 30 Ml Oral.Susp) 30 ml PO DAILY PRN PRN Reason: Constipation Magnesium Hydroxide (Milk Of Magnesia 30 Ml Oral.Susp) 5 ml PO BEDTIME [facility] Last Admin: 11/04/24 20:09 Dose: 5 ml Mirtazapine (Mirtazapine 15 Mg Tablet) 15 mg PO BEDTIME [facility] Last Admin: 11/04/24 20:12 Dose: 15 mg Olanzapine (Olanzapine Odt 10 Mg Tab.Rapdis) 5 mg TRANSLINGU BID PRN PRN Reason: agitation Polyethylene Glycol (Polyethylene Glycol 3350 17 Gm Powd.Pack) 17 gm PO DAILY [facility] Last Admin: 11/05/24 10:30 Dose: 17 gm Pramipexole Dihydrochloride (Pramipexole Di-Hcl 0.25 Mg Tablet) 0.5 mg PO TID [facility] Last Admin: 11/05/24 15:39 Dose: 0.5 mg Senna/Docusate Sodium (Sennosides/Docusate Sodium Tablet) 1 tab PO BID PRN PRN Reason: no BM for more than 3days Sertraline HCl (Sertraline Hcl 25 Mg Tablet) 75 mg PO DAILY [facility] Last Admin: 11/05/24 10:21 Dose: 75 mg Sodium Chloride (0.9 % Sodium Chloride Flush 10 Ml Syringe) 5 ml IVFLUSH QSHIFT [facility] Last Admin: 11/05/24 15:40 Dose: Not Given Tamsulosin HCl (Tamsulosin Hcl 0.4 Mg Capsule) 0.8 mg PO BEDTIME [facility] Last Admin: 11/04/24 20:12 Dose: 0.8 mg Thiamine HCl (Thiamine Hcl 100 Mg Tablet) 100 mg PO DAILY [facility] Last Admin: 11/05/24 10:21 Dose: 100 mg Trazodone HCl (Trazodone Hcl 50 Mg Tablet) 50 mg PO BEDTIME PRN PRN Reason: Insomnia Last Admin: 11/02/24 20:49 Dose: 50 mg Trimethoprim/Sulfamethoxazole (Sulfamethox/Trimeth 800/160 Tablet) 1 tab PO Q12H [facility] Stop: 11/08/24 17:59 Last Admin: 11/05/24 06:11 Dose: 1 tab Allergies Allergies Allergy/AdvReac Type Severity Reaction Status Date / Time No Known Allergies (NKA) Allergy Unknown NONE Verified 10/27/24 19:26 Assessment & Plan Assessment & Plan (1) Catatonia: Status: Acute Code(s): F06.1 - Catatonic disorder due to known physiological condition (2) Schizoaffective disorder: Status: Acute Code(s): F25.9 - Schizoaffective disorder, unspecified (3) Essential hypertension: Status: Acute Code(s): I10 - Essential (primary) hypertension (4) Urinary retention with incomplete bladder emptying: Status: Acute Code(s): R33.9 - Retention of urine, unspecified Plan 59 year-old male with hx of schizoaffective disorder, hypertension, urinary retention, type 2 diabetes, depression recently discharged from on 10/08/2024 after prolonged admission due to treatment resistant catatonia. He had responded to Ketamine treatment, failed ECT with further complications including aspiration. He presented from care home with a change in mental status, he was found wandering in the streets soaked in urine. Depression with decompensation of schizophrenia, catatonia. Status post ketamine treatments, history of ECT with aspiration event Treatment per psych team. Urinary retention/BPH Continue Flomax 0.8mg, Finesteride Dove catheter in place. Follow up urology outpatient Dysphagia Tolerating diet, HOB up. OOB for meals. Mr. 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 He had responded to ketamine treatment, failed ECT with further complications including aspiration. He presents with catatonia again including mutism, waxy flexibility. He had one ketamine treatment since he was discharged from the hospital and only partial dose. He was recommended to do weekly ketamine treatments to prevent catatonia. reports he was taking medications as prescribed. Pending clozapine/norclozapine levels. PLAN 1. Admit to S1, Sect 12b, 1:1 unsteady gait 2. will check KUB for constipation as pt very poor historian but reports no BM in several days. Will also check bladder scan post void to rule out overflow incontinence due to urinary retention since reports increase incontinence in past few days. Note that he was straight cath while in the ED. 3. restart medications- abilify, sertraline, clozapine, low dose depakote 4. obtain collateral information 5. aftercare panning. 10/29/24 Pt to restart ketamine hcp in effect on 12 b at present 10/30/2024 Patient now on CV by healthcare proxy. Ketamine protocol ordered for the morning the that was previously quite helpful in treating patients catatonia has not responded previously well to lorazepam had only intermittent response to ECT here proxy does not wish ECT treatment and did respond to ketamine Medications continue that previously had been helpful on recent discharge 10/31/2024 Patient given 1st ketamine treatment had respondent previously to a series no change this point. Encourage food and fluids face anxious in appearance mostly mute minimally responsive catatonic symptoms continue. Continue Abilify mirtazapine sertraline Clozaril 150 mg Continue ketamine trial 11/01/2024 Patient remains generally unchanged. Continue clozapine sertraline mirtazapine Abilify 5 mg pramipexole 0.5 t.i.d. part of previous catatonia algorithm. Ketamine scheduled when possible had previously been quite helpful was previously on a 2 week 2 times a week schedule Urinary retention positive urine culture case discussed hospitalist service. Hospitalist consult called. Plan for antibiotics and Dove catheter and then trial without the catheter as possible check electrolytes in the morning may benefit from fluid replacement. Maintain head of the bed elevated supportive nursing care plan to reduce possible congestion 11/02: Continue current regimen and plans 11/03: Continue current plans and regimen Reason for continued inpatient stay 11/05/24 Pt with some imp more alert tolerating ketamine tx needs assist eating walking flat catatonic cont pts catatonia protocal Informed Consent: does not understand Reason for continued inpatient stay Substantial Risk for: inability to function and rapid decompensation Time Spent With Patient Time: Total time managing care of this patient today ____ minutes.
[2024-11-05] MEDS: Divalproex Sodium Sprinkles 125 MG CAP.DR.SPR 500 MG PO (20:42)
[2024-11-05] MEDS: Milk of Magnesia 30 ML ORAL.SUSP 5 ML PO (20:42)
[2024-11-06] MEDS: Sulfamethox/Trimeth 800/160 TABLET 1 TAB PO ×2 (05:21→16:44)
[2024-11-06 08:00] VITALS: BP 128/76; PULSE 90; RESP 14; TEMP 36.4; O2SAT 97
[2024-11-06] MEDS: Ferrous Sulfate 324 MG TABLET.DR PO (08:34)
--- NOTE | 2024-11-06 08:55 | HO.PM.IMPN ---
Subjective Subjective Date of Service: 11/06/24 Interval History: Patient was seen and examined, out of bed in wheelchair, in no apparent distress. He is eating food. Answers in 1-2 word answers. Denies any shortness of breath or chest pain. Patient reports that he feels constipated. Dove patent clear yellow urine. Review of Systems Denies any shortness of breath, chest pain, reports constipation. Physical Exam Exam: Exam: CONST: Alert and oriented, in NAD. Well nourished HEENT: Normocephalic, atraumatic, MMM, Eyes clear, Neck supple RESP: Lungs clear, RRR even and regular HEART:,RRR, S1, S2. No murmur, no edema GI:Abdomen Soft NT, ND. + BS times four :FC patent CYU SKIN: Warm dry and intact, no visible lesions or rashes NEURO:CN II-XII Intact bilaterally, Sensation intact. Speech clear PSYCH: Flat affect, answers in 1-2 word responses Vital Signs: Vital Signs: Last Vital Signs Temp 97.6 F 11/06/24 08:00 Pulse 90 11/06/24 08:00 Resp 14 11/06/24 08:00 BP 128/76 11/06/24 08:00 Pulse Ox 97 11/06/24 08:00 O2 Del Method Room Air 11/06/24 08:00 O2 Flow Rate 2 11/05/24 09:45 BMI result Body Mass Index 27.3 Objective Data Active Medications Acetaminophen (Acetaminophen 325 Mg Tablet) 650 mg PO Q6H PRN PRN Reason: Headache/Pain, Scale 1-10 Last Admin: 11/01/24 20:01 Dose: 650 mg Documented By: SERGEY Al Hydroxide/Mg Hydroxide (Magnesium Hydrox/Alum Hydrox 30 Ml Oral.Susp) 30 ml PO Q6H PRN PRN Reason: Heartburn/Nausea Aripiprazole (Aripiprazole 5 Mg Tablet) 5 mg PO DAILY@1730 [facility] Last Admin: 11/05/24 16:43 Dose: 5 mg Documented By: KELVIN Ascorbic Acid (Ascorbic Acid 500 Mg Tablet) 500 mg PO DAILY [facility] Last Admin: 11/06/24 08:34 Dose: 500 mg Documented By: KELVIN Clozapine (Clozapine 25 Mg Tablet) 150 mg PO DAILY@1999 [facility] Last Admin: 11/05/24 20:42 Dose: 150 mg Documented By: CONCETTA Divalproex Sodium (Divalproex Sodium Sprinkles 125 Mg Cap.) 500 mg PO DAILY@1999 [facility] Last Admin: 11/05/24 20:42 Dose: 500 mg Documented By: CONCETTA Enoxaparin Sodium (Enoxaparin Sodium 40 Mg/0.4 Ml Syringe) 40 mg SUBCUT Q24H [facility] Last Admin: 11/05/24 17:34 Dose: 40 mg Documented By: KELVIN Ferrous Sulfate (Ferrous Sulfate 324 Mg Popeye.) 324 mg PO DAILY [facility] Last Admin: 11/06/24 08:34 Dose: 324 mg Documented By: KELVIN Finasteride (Finasteride 5 Mg Tablet) 5 mg PO DAILY [facility] Last Admin: 11/06/24 08:34 Dose: 5 mg Documented By: KELVIN Ketamine HCl 45 mg/ Sodium (Chloride) 45 mls @ 45 mls/hr IV ONCE ONE Stop: 11/07/24 08:29 Magnesium Hydroxide (Milk Of Magnesia 30 Ml Oral.Susp) 30 ml PO DAILY PRN PRN Reason: Constipation Magnesium Hydroxide (Milk Of Magnesia 30 Ml Oral.Susp) 5 ml PO BEDTIME [facility] Last Admin: 11/05/24 20:42 Dose: 5 ml Documented By: CONCETTA Mirtazapine (Mirtazapine 15 Mg Tablet) 15 mg PO BEDTIME [facility] Last Admin: 11/05/24 20:42 Dose: 15 mg Documented By: CONCETTA Olanzapine (Olanzapine Odt 10 Mg Tab.Rapdis) 5 mg TRANSLINGU BID PRN PRN Reason: agitation Polyethylene Glycol (Polyethylene Glycol 3350 17 Gm Powd.Pack) 17 gm PO DAILY [facility] Last Admin: 11/06/24 08:35 Dose: 17 gm Documented By: KELVIN Pramipexole Dihydrochloride (Pramipexole Di-Hcl 0.25 Mg Tablet) 0.5 mg PO TID [facility] Last Admin: 11/06/24 08:34 Dose: 0.5 mg Documented By: KELVIN Senna/Docusate Sodium (Sennosides/Docusate Sodium Tablet) 1 tab PO BID PRN PRN Reason: no BM for more than 3days Sertraline HCl (Sertraline Hcl 25 Mg Tablet) 75 mg PO DAILY [facility] Last Admin: 11/06/24 08:34 Dose: 75 mg Documented By: KELVIN Sodium Chloride (0.9 % Sodium Chloride Flush 10 Ml Syringe) 5 ml IVFLUSH QSHIFT [facility] Last Admin: 11/05/24 23:28 Dose: Not Given Documented By: SERGEY Non-Admin Reason: Midline in place, flushed. Tamsulosin HCl (Tamsulosin Hcl 0.4 Mg Capsule) 0.8 mg PO BEDTIME [facility] Last Admin: 11/05/24 20:42 Dose: 0.8 mg Documented By: CONCETTA Thiamine HCl (Thiamine Hcl 100 Mg Tablet) 100 mg PO DAILY [facility] Last Admin: 11/06/24 08:34 Dose: 100 mg Documented By: KELVIN Trazodone HCl (Trazodone Hcl 50 Mg Tablet) 50 mg PO BEDTIME PRN PRN Reason: Insomnia Last Admin: 11/02/24 20:49 Dose: 50 mg Documented By: SERGEY Trimethoprim/Sulfamethoxazole (Sulfamethox/Trimeth 800/160 Tablet) 1 tab PO Q12H [facility] Stop: 11/08/24 17:59 Last Admin: 11/06/24 05:21 Dose: 1 tab Documented By: SERGEY Labs 11/03/24 08:16 11/02/24 07:39 Assessment and Plan (1) Urinary retention with incomplete bladder emptying: Status: Acute Plan 59 year-old male with hx of schizoaffective disorder, hypertension, urinary retention, type 2 diabetes, depression recently discharged from on 10/08/2024 after prolonged admission due to treatment resistant catatonia. He had responded to Ketamine treatment, failed ECT with further complications including aspiration. He presented from longterm with a change in mental status, he was found wandering in the streets soaked in urine. Depression with decompensation of schizophrenia, catatonia. Status post ketamine treatments, history of ECT with aspiration event Treatment per psych team. 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 If swelling develops to his arm, in line needs to be removed and provider notified. Urinary retention/BPH Continue Flomax 0.8mg, Finesteride Dove catheter in place. Follow up urology outpatient Dysphagia Tolerating diet, HOB up. OOB for meals. UTI Dove catheterization pain, patient is afebrile. DVT prophylaxis: Lovenox- DC when patient ambulating greater than 100 ft Code status: Full code Thank you for allowing me to participate in the care of this patient. Will follow as needed. Please reconsult of any acute concerns or issues arise Quality Stroke Does the patient have a stroke diagnosis?: No VTE Prior VTE?: No VTE Risk Level:: Medical - moderate - high VTE Device Contraindication: Treatment Not Indicated VTE Drug Contraindication: N/A - Med Ordered
[2024-11-06] MEDS: 0.9 % Sodium Chloride Flush 10 ML SYRINGE IVFLUSH (16:10)
[2024-11-06 20:00] VITALS: BP 118/60; PULSE 68; RESP 18; TEMP 36.6; O2SAT 96
[2024-11-06] MEDS: Milk of Magnesia 30 ML ORAL.SUSP 5 ML PO (21:43)
[2024-11-06] MEDS: Divalproex Sodium Sprinkles 125 MG CAP.DR.SPR 500 MG PO (21:44)
--- NOTE | 2024-11-06 21:58 | HO.PSYCHPN ---
Subjective Subjective Date of Service: 10/30/24 Reason For Visit: Catatonia Subjective Notes: Odonnell Order and Conditional Voluntary Interim History: Patient seen psychiatric follow-up. Case reviewed in treatment planning chart reviewed patient seen. Patient out of bed more he is ambulating intermittently remains on one-to-one remains psychomotor retarded mostly mute limited responses Mental Status Exam Mental Status Exam Narrative: Patient lethargic some inc verbal responses mood flat no gross agitation tremor noted. Dysphoric in look constricted no gross psychotic statements difficult to evaluate mostly one-word answers not combative Diagnostics Vital Signs (24Hr): Vital Signs - 24 hr 11/06/24 08:00 11/06/24 20:00 Temperature 97.6 F 98 F Pulse Rate 90 68 Respiratory Rate 14 18 Blood Pressure 128/76 118/60 Pulse Oximetry 97 96 Oxygen Delivery Method Room Air Room Air BMI result Body Mass Index 27.3 Labs 11/03/24 08:16 11/02/24 07:39 Imaging Radiology Impressions: ITS Impressions KUB X-Ray 10/28/24 16:45 IMPRESSION: Again seen is a large amount of stool throughout the colon and rectum. Electronically signed by: Jose J Gonzalez MD 10/28/2024 05:20 PM EDT RP Medications Medications Current Medications Acetaminophen (Acetaminophen 325 Mg Tablet) 650 mg PO Q6H PRN PRN Reason: Headache/Pain, Scale 1-10 Last Admin: 11/01/24 20:01 Dose: 650 mg Al Hydroxide/Mg Hydroxide (Magnesium Hydrox/Alum Hydrox 30 Ml Oral.Susp) 30 ml PO Q6H PRN PRN Reason: Heartburn/Nausea Aripiprazole (Aripiprazole 5 Mg Tablet) 5 mg PO DAILY@1730 [facility] Last Admin: 11/06/24 17:30 Dose: 5 mg Ascorbic Acid (Ascorbic Acid 500 Mg Tablet) 500 mg PO DAILY [facility] Last Admin: 11/06/24 08:34 Dose: 500 mg Clozapine (Clozapine 25 Mg Tablet) 150 mg PO DAILY@1999 [facility] Last Admin: 11/06/24 21:43 Dose: 150 mg Divalproex Sodium (Divalproex Sodium Sprinkles 125 Mg ) 500 mg PO DAILY@1999 [facility] Last Admin: 11/06/24 21:44 Dose: 500 mg Enoxaparin Sodium (Enoxaparin Sodium 40 Mg/0.4 Ml Syringe) 40 mg SUBCUT Q24H [facility] Last Admin: 11/06/24 16:10 Dose: 40 mg Ferrous Sulfate (Ferrous Sulfate 324 Mg Tablet.Dr) 324 mg PO DAILY [facility] Last Admin: 11/06/24 08:34 Dose: 324 mg Finasteride (Finasteride 5 Mg Tablet) 5 mg PO DAILY [facility] Last Admin: 11/06/24 08:34 Dose: 5 mg Ketamine HCl 45 mg/ Sodium (Chloride) 45 mls @ 45 mls/hr IV ONCE ONE Stop: 11/07/24 08:29 Magnesium Hydroxide (Milk Of Magnesia 30 Ml Oral.Susp) 30 ml PO DAILY PRN PRN Reason: Constipation Magnesium Hydroxide (Milk Of Magnesia 30 Ml Oral.Susp) 5 ml PO BEDTIME [facility] Last Admin: 11/06/24 21:43 Dose: 5 ml Mirtazapine (Mirtazapine 15 Mg Tablet) 15 mg PO BEDTIME [facility] Last Admin: 11/06/24 21:45 Dose: 15 mg Olanzapine (Olanzapine Odt 10 Mg Tab.Rapdis) 5 mg TRANSLINGU BID PRN PRN Reason: agitation Polyethylene Glycol (Polyethylene Glycol 3350 17 Gm Powd.Pack) 17 gm PO DAILY [facility] Last Admin: 11/06/24 08:35 Dose: 17 gm Pramipexole Dihydrochloride (Pramipexole Di-Hcl 0.25 Mg Tablet) 0.5 mg PO TID [facility] Last Admin: 11/06/24 21:45 Dose: 0.5 mg Senna/Docusate Sodium (Sennosides/Docusate Sodium Tablet) 1 tab PO BID PRN PRN Reason: no BM for more than 3days Sertraline HCl (Sertraline Hcl 100 Mg Tablet) 100 mg PO DAILY [facility] Sodium Chloride (0.9 % Sodium Chloride Flush 10 Ml Syringe) [facility] Last Admin: 11/06/24 18:49 Dose: Not Given Sodium Chloride (0.9 % Sodium Chloride Flush 10 Ml Syringe) 10 ml IVFLUSH QSHIFT [facility] Last Admin: 11/06/24 16:10 Dose: 10 ml Tamsulosin HCl (Tamsulosin Hcl 0.4 Mg Capsule) 0.8 mg PO BEDTIME [facility] Last Admin: 11/06/24 21:43 Dose: 0.8 mg Thiamine HCl (Thiamine Hcl 100 Mg Tablet) 100 mg PO DAILY [facility] Last Admin: 11/06/24 08:34 Dose: 100 mg Trazodone HCl (Trazodone Hcl 50 Mg Tablet) 50 mg PO BEDTIME PRN PRN Reason: Insomnia Last Admin: 11/06/24 21:45 Dose: 50 mg Trimethoprim/Sulfamethoxazole (Sulfamethox/Trimeth 800/160 Tablet) 1 tab PO Q12H [facility] Stop: 11/08/24 17:59 Last Admin: 11/06/24 16:44 Dose: 1 tab Allergies Allergies Allergy/AdvReac Type Severity Reaction Status Date / Time No Known Allergies (NKA) Allergy Unknown NONE Verified 10/27/24 19:26 Assessment & Plan Assessment & Plan (1) Catatonia: Status: Acute Code(s): F06.1 - Catatonic disorder due to known physiological condition (2) Schizoaffective disorder: Status: Acute Code(s): F25.9 - Schizoaffective disorder, unspecified (3) Essential hypertension: Status: Acute Code(s): I10 - Essential (primary) hypertension (4) Urinary retention with incomplete bladder emptying: Status: Acute Code(s): R33.9 - Retention of urine, unspecified Plan 59 year-old male with hx of schizoaffective disorder, hypertension, urinary retention, type 2 diabetes, depression recently discharged from on 10/08/2024 after prolonged admission due to treatment resistant catatonia. He had responded to Ketamine treatment, failed ECT with further complications including aspiration. [facility] with a change in mental status, he was found wandering in the streets soaked in urine. Depression with decompensation of schizophrenia, catatonia. Status post ketamine treatments, history of ECT with aspiration event Treatment per psych team. Urinary retention/BPH Continue Flomax 0.8mg, Finesteride Dove catheter in place. Follow up urology outpatient Dysphagia Tolerating diet, HOB up. OOB for meals. Mr. 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 He had responded to ketamine treatment, failed ECT with further complications including aspiration. He presents with catatonia again including mutism, waxy flexibility. He had one ketamine treatment since he was discharged from the hospital and only partial dose. He was recommended to do weekly ketamine treatments to prevent catatonia. reports he was taking medications as prescribed. Pending clozapine/norclozapine levels. PLAN 1. Admit to S1, Sect 12b, 1:1 unsteady gait 2. will check KUB for constipation as pt very poor historian but reports no BM in several days. Will also check bladder scan post void to rule out overflow incontinence due to urinary retention since reports increase incontinence in past few days. Note that he was straight cath while in the ED. 3. restart medications- abilify, sertraline, clozapine, low dose depakote 4. obtain collateral information 5. aftercare panning. 10/29/24 Pt to restart ketamine hcp in effect on 12 b at present 10/30/2024 Patient now on CV by healthcare proxy. Ketamine protocol ordered for the morning the that was previously quite helpful in treating patients catatonia has not responded previously well to lorazepam had only intermittent response to ECT here proxy does not wish ECT treatment and did respond to ketamine Medications continue that previously had been helpful on recent discharge 10/31/2024 Patient given 1st ketamine treatment had respondent previously to a series no change this point. Encourage food and fluids face anxious in appearance mostly mute minimally responsive catatonic symptoms continue. Continue Abilify mirtazapine sertraline Clozaril 150 mg Continue ketamine trial 11/01/2024 Patient remains generally unchanged. Continue clozapine sertraline mirtazapine Abilify 5 mg pramipexole 0.5 t.i.d. part of previous catatonia algorithm. Ketamine scheduled when possible had previously been quite helpful was previously on a 2 week 2 times a week schedule Urinary retention positive urine culture case discussed hospitalist service. Hospitalist consult called. Plan for antibiotics and Dove catheter and then trial without the catheter as possible check electrolytes in the morning may benefit from fluid replacement. Maintain head of the bed elevated supportive nursing care plan to reduce possible congestion 11/02: Continue current regimen and plans 11/03: Continue current plans and regimen Reason for continued inpatient stay 11/05/24 Pt with some imp more alert tolerating ketamine tx needs assist eating walking flat catatonic cont pts catatonia protocal 11/06/2024 Continue plan of care ketamine 11/07/2024 some mild improvement noted continue Monday ketamine treatment Reason for continued inpatient stay Substantial Risk for: inability to function, rapid decompensation and med/psych decompensation Time Spent With Patient Time: Total time managing care of this patient today ____ minutes.
[2024-11-07] VITALS (12 sets, daily range): BP systolic 119–139; BP diastolic 65–79; PULSE 68–86; RESP 15–22; TEMP 36.1–36.9; O2SAT 92–96; BMI 27.3
[2024-11-07] MEDS: 0.9 % Sodium Chloride Flush 10 ML SYRINGE IVFLUSH ×2 (00:40→15:34)
[2024-11-07] MEDS: Sulfamethox/Trimeth 800/160 TABLET 1 TAB PO ×2 (05:32→19:59)
--- NOTE | 2024-11-07 10:10 | P.PNPSI_ITS ---
Subjective Subjective Date of Service: 11/07/24 Reason For Visit: Catatonia Subjective Notes: Conditional Voluntary Healthcare Proxy: Yes Interim History: Patient ambulating with the assistance more verbal more alert tolerated treatment with ketamine this morning PT consult had been ordered Medication Compliance: Yes Mental Status Exam Mental Status Exam Narrative: Patient more alert awake responding to questioning more briskly bradykinetic but relating with some assistance more verbal mood described as depressed some anxiety hesitates regarding hallucinations or paranoia no gross SI or HI Diagnostics Vital Signs (24Hr): Vital Signs - 24 hr 11/06/24 20:00 11/07/24 08:00 11/07/24 08:07 Temperature 98 F 98.5 F 98.5 F Pulse Rate 68 68 68 Respiratory Rate 18 22 H 22 H Blood Pressure 118/60 127/78 127/78 Pulse Oximetry 96 95 95 Oxygen Delivery Method Room Air Room Air Room Air 11/07/24 08:15 11/07/24 08:30 11/07/24 08:45 Temperature Pulse Rate 71 68 69 Respiratory Rate 19 20 19 Blood Pressure 131/65 129/68 139/72 Pulse Oximetry 93 92 93 Oxygen Delivery Method Room Air Room Air Room Air 11/07/24 08:55 11/07/24 09:10 11/07/24 09:25 Temperature 97 F Pulse Rate 69 70 75 Respiratory Rate 18 15 20 Blood Pressure 126/79 131/74 138/72 Pulse Oximetry 94 95 95 Oxygen Delivery Method Room Air Room Air Room Air 11/07/24 09:40 11/07/24 09:55 Temperature Pulse Rate 76 73 Respiratory Rate 20 20 Blood Pressure 130/73 119/70 Pulse Oximetry 96 95 Oxygen Delivery Method Room Air Room Air BMI result Body Mass Index 27.3 Labs 11/03/24 08:16 11/02/24 07:39 Imaging Radiology Impressions: ITS Impressions KUB X-Ray 10/28/24 16:45 IMPRESSION: Again seen is a large amount of stool throughout the colon and rectum. Electronically signed by: Jose J Gonzalez MD 10/28/2024 05:20 PM EDT Medications Medications Current Medications Acetaminophen (Acetaminophen 325 Mg Tablet) 650 mg PO Q6H PRN PRN Reason: Headache/Pain, Scale 1-10 Last Admin: 11/01/24 20:01 Dose: 650 mg Al Hydroxide/Mg Hydroxide (Magnesium Hydrox/Alum Hydrox 30 Ml Oral.Susp) 30 ml PO Q6H PRN PRN Reason: Heartburn/Nausea Aripiprazole (Aripiprazole 5 Mg Tablet) 5 mg PO DAILY@1730 [facility] Last Admin: 11/06/24 17:30 Dose: 5 mg Ascorbic Acid (Ascorbic Acid 500 Mg Tablet) 500 mg PO DAILY [facility] Last Admin: 11/06/24 08:34 Dose: 500 mg Clozapine (Clozapine 25 Mg Tablet) 150 mg PO DAILY@1999 [facility] Last Admin: 11/06/24 21:43 Dose: 150 mg Divalproex Sodium (Divalproex Sodium Sprinkles 125 Mg Cap.) 500 mg PO DAILY@1999 [facility] Last Admin: 11/06/24 21:44 Dose: 500 mg Enoxaparin Sodium (Enoxaparin Sodium 40 Mg/0.4 Ml Syringe) 40 mg SUBCUT Q24H [facility] Last Admin: 11/06/24 16:10 Dose: 40 mg Ferrous Sulfate (Ferrous Sulfate 324 Mg Tablet.) 324 mg PO DAILY [facility] Last Admin: 11/06/24 08:34 Dose: 324 mg Finasteride (Finasteride 5 Mg Tablet) 5 mg PO DAILY [facility] Last Admin: 11/06/24 08:34 Dose: 5 mg Magnesium Hydroxide (Milk Of Magnesia 30 Ml Oral.Susp) 30 ml PO DAILY PRN PRN Reason: Constipation Magnesium Hydroxide (Milk Of Magnesia 30 Ml Oral.Susp) 5 ml PO BEDTIME [facility] Last Admin: 11/06/24 21:43 Dose: 5 ml Mirtazapine (Mirtazapine 15 Mg Tablet) 15 mg PO BEDTIME [facility] Last Admin: 11/06/24 21:45 Dose: 15 mg Olanzapine (Olanzapine Odt 10 Mg Tab.Rapdis) 5 mg TRANSLINGU BID PRN PRN Reason: agitation Polyethylene Glycol (Polyethylene Glycol 3350 17 Gm Powd.Pack) 17 gm PO DAILY [facility] Last Admin: 11/06/24 08:35 Dose: 17 gm Pramipexole Dihydrochloride (Pramipexole Di-Hcl 0.25 Mg Tablet) 0.5 mg PO TID [facility] Last Admin: 11/06/24 21:45 Dose: 0.5 mg Senna/Docusate Sodium (Sennosides/Docusate Sodium Tablet) 1 tab PO BID PRN PRN Reason: no BM for more than 3days Sertraline HCl (Sertraline Hcl 100 Mg Tablet) 100 mg PO DAILY [facility] Sodium Chloride (0.9 % Sodium Chloride Flush 10 Ml Syringe) 5 ml IVFLUSH QSWAFT [facility] Last Admin: 11/07/24 00:39 Dose: Not Given Sodium Chloride (0.9 % Sodium Chloride Flush 10 Ml Syringe) 10 ml IVFLUSH QSHIFT [facility] Last Admin: 11/07/24 00:40 Dose: 10 ml Tamsulosin HCl (Tamsulosin Hcl 0.4 Mg Capsule) 0.8 mg PO BEDTIME [facility] Last Admin: 11/06/24 21:43 Dose: 0.8 mg Thiamine HCl (Thiamine Hcl 100 Mg Tablet) 100 mg PO DAILY [facility] Last Admin: 11/06/24 08:34 Dose: 100 mg Trazodone HCl (Trazodone Hcl 50 Mg Tablet) 50 mg PO BEDTIME PRN PRN Reason: Insomnia Last Admin: 11/06/24 21:45 Dose: 50 mg Trimethoprim/Sulfamethoxazole (Sulfamethox/Trimeth 800/160 Tablet) 1 tab PO Q12H [facility] Stop: 11/08/24 17:59 Last Admin: 11/07/24 05:32 Dose: 1 tab Allergies Allergies Allergy/AdvReac Type Severity Reaction Status Date / Time No Known Allergies (NKA) Allergy Unknown NONE Verified 10/27/24 19:26 Assessment & Plan Assessment & Plan (1) Catatonia: Status: Acute Code(s): F06.1 - Catatonic disorder due to known physiological condition (2) Schizoaffective disorder: Status: Acute Code(s): F25.9 - Schizoaffective disorder, unspecified (3) Essential hypertension: Status: Acute Code(s): I10 - Essential (primary) hypertension (4) Urinary retention with incomplete bladder emptying: Status: Acute Code(s): R33.9 - Retention of urine, unspecified Plan 59 year-old male with hx of schizoaffective disorder, hypertension, urinary retention, type 2 diabetes, depression recently discharged from on 10/08/2024 after prolonged admission due to treatment resistant catatonia. He had responded to Ketamine treatment, failed ECT with further complications including aspiration. He presented from long-term with a change in mental status, he was found wandering in the streets soaked in urine. Depression with decompensation of schizophrenia, catatonia. Status post ketamine treatments, history of ECT with aspiration event Treatment per psych team. Urinary retention/BPH Continue Flomax 0.8mg, Finesteride Dove catheter in place. Follow up urology outpatient Dysphagia Tolerating diet, HOB up. OOB for meals. Mr. 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 He had responded to ketamine treatment, failed ECT with further complications including aspiration. He presents with catatonia again including mutism, waxy flexibility. He had one ketamine treatment since he was discharged from the hospital and only partial dose. He was recommended to do weekly ketamine treatments to prevent catatonia. reports he was taking medications as prescribed. Pending clozapine/norclozapine levels. PLAN 1. Admit to , Sect 12b, 1:1 unsteady gait 2. will check KUB for constipation as pt very poor historian but reports no BM in several days. Will also check bladder scan post void to rule out overflow incontinence due to urinary retention since reports increase incontinence in past few days. Note that he was straight cath while in the ED. 3. restart medications- abilify, sertraline, clozapine, low dose depakote 4. obtain collateral information 5. aftercare panning. 10/29/24 Pt to restart ketamine hcp in effect on 12 b at present 10/30/2024 Patient now on CV by healthcare proxy. Ketamine protocol ordered for the morning the that was previously quite helpful in treating patients catatonia has not responded previously well to lorazepam had only intermittent response to ECT here proxy does not wish ECT treatment and did respond to ketamine Medications continue that previously had been helpful on recent discharge 10/31/2024 Patient given 1st ketamine treatment had respondent previously to a series no change this point. Encourage food and fluids face anxious in appearance mostly mute minimally responsive catatonic symptoms continue. Continue Abilify mirtazapine sertraline Clozaril 150 mg Continue ketamine trial 11/01/2024 Patient remains generally unchanged. Continue clozapine sertraline mirtazapine Abilify 5 mg pramipexole 0.5 t.i.d. part of previous catatonia algorithm. Ketamine scheduled when possible had previously been quite helpful was previously on a 2 week 2 times a week schedule Urinary retention positive urine culture case discussed hospitalist service. Hospitalist consult called. Plan for antibiotics and Dove catheter and then trial without the catheter as possible check electrolytes in the morning may benefit from fluid replacement. Maintain head of the bed elevated supportive nursing care plan to reduce possible congestion 11/02: Continue current regimen and plans 11/03: Continue current plans and regimen Reason for continued inpatient stay 11/05/24 Pt with some imp more alert tolerating ketamine tx needs assist eating walking flat catatonic cont pts catatonia protocal 11/06/2024 Continue plan of care ketamine 11/07/2024 some mild improvement noted continue Monday ketamine treatment 11/07/2024 Patient continues to show improvement from initial catatonia more verbal try to evaluate mood and psychosis. Need clarity why patient was unable to complete outpatient ketamine Reason for continued inpatient stay Substantial Risk for: inability to function, rapid decompensation and med/psych decompensation Time Spent With Patient Time: Total time managing care of this patient today 30____ minutes.
[2024-11-07] MEDS: Ferrous Sulfate 324 MG TABLET.DR PO (10:20)
--- NOTE | 2024-11-07 15:35 | PC.NURSE ---
Picc R antecub patent. Positive blood return.
[2024-11-07] MEDS: Divalproex Sodium Sprinkles 125 MG CAP.DR.SPR 500 MG PO (19:59)
[2024-11-07] MEDS: Milk of Magnesia 30 ML ORAL.SUSP 5 ML PO (20:00)
[2024-11-08] MEDS: 0.9 % Sodium Chloride Flush 10 ML SYRINGE IVFLUSH ×3 (00:36→17:18)
[2024-11-08 08:00] VITALS: BP 116/56; PULSE 80; RESP 16; TEMP 36.4; O2SAT 98
[2024-11-08] MEDS: Sulfamethox/Trimeth 800/160 TABLET 1 TAB PO ×2 (08:59→20:40)
[2024-11-08] MEDS: Ferrous Sulfate 324 MG TABLET.DR PO (09:00)
[2024-11-08 20:00] VITALS: BP 101/51; PULSE 76; RESP 16; TEMP 36.8; O2SAT 95
[2024-11-08] MEDS: Divalproex Sodium Sprinkles 125 MG CAP.DR.SPR 500 MG PO (20:41)
[2024-11-08] MEDS: Milk of Magnesia 30 ML ORAL.SUSP 5 ML PO (20:52)
--- NOTE | 2024-11-08 21:59 | HO.PSYCHPN ---
Subjective Subjective Date of Service: 11/08/24 Reason For Visit: Catatonia Interim History: Patient seen psychiatric follow-up case reviewed with nursing staff. Chart reviewed case reviewed treatment planning. Patient is some somewhat improved more alert out of bed more able to walk more independently. Medication Compliance: Yes Mental Status Exam Mental Status Exam Narrative: Patient casually dressed flat in appearance bradykinetic some improved range of affect shakes his head when asked about thoughts of self-harm or harm to others no clear response to hallucinations impulse control intact Diagnostics Vital Signs (24Hr): Vital Signs - 24 hr 11/08/24 08:00 Temperature 97.5 F Pulse Rate 80 Respiratory Rate 16 Blood Pressure 116/56 L Pulse Oximetry 98 Oxygen Delivery Method Room Air BMI result Body Mass Index 27.3 Labs 11/03/24 08:16 11/02/24 07:39 Imaging Radiology Impressions: ITS Impressions KUB X-Ray 10/28/24 16:45 IMPRESSION: Again seen is a large amount of stool throughout the colon and rectum. Electronically signed by: Jose J Gonzalez MD 10/28/2024 05:20 PM EDT Medications Medications Current Medications Acetaminophen (Acetaminophen 325 Mg Tablet) 650 mg PO Q6H PRN PRN Reason: Headache/Pain, Scale 1-10 Last Admin: 11/01/24 20:01 Dose: 650 mg Al Hydroxide/Mg Hydroxide (Magnesium Hydrox/Alum Hydrox 30 Ml Oral.Susp) 30 ml PO Q6H PRN PRN Reason: Heartburn/Nausea Aripiprazole (Aripiprazole 5 Mg Tablet) 5 mg PO DAILY@1730 [facility] Last Admin: 11/08/24 17:18 Dose: 5 mg Ascorbic Acid (Ascorbic Acid 500 Mg Tablet) 500 mg PO DAILY [facility] Last Admin: 11/08/24 08:59 Dose: 500 mg Clozapine (Clozapine 25 Mg Tablet) 150 mg PO DAILY@1999 [facility] Last Admin: 11/08/24 20:40 Dose: 150 mg Divalproex Sodium (Divalproex Sodium Sprinkles 125 Mg ) 500 mg PO DAILY@1999 [facility] Last Admin: 11/08/24 20:41 Dose: 500 mg Enoxaparin Sodium (Enoxaparin Sodium 40 Mg/0.4 Ml Syringe) 40 mg SUBCUT Q24H [facility] Last Admin: 11/08/24 14:46 Dose: 40 mg Ferrous Sulfate (Ferrous Sulfate 324 Mg Tablet.Dr) 324 mg PO DAILY [facility] Last Admin: 11/08/24 09:00 Dose: 324 mg Finasteride (Finasteride 5 Mg Tablet) 5 mg PO DAILY [facility] Last Admin: 11/08/24 08:59 Dose: 5 mg Magnesium Hydroxide (Milk Of Magnesia 30 Ml Oral.Susp) 30 ml PO DAILY PRN PRN Reason: Constipation Magnesium Hydroxide (Milk Of Magnesia 30 Ml Oral.Susp) 5 ml PO BEDTIME [facility] Last Admin: 11/08/24 20:52 Dose: 5 ml Mirtazapine (Mirtazapine 15 Mg Tablet) 15 mg PO BEDTIME [facility] Last Admin: 11/08/24 20:40 Dose: 15 mg Olanzapine (Olanzapine Odt 10 Mg Tab.Rapdis) 5 mg TRANSLINGU BID PRN PRN Reason: agitation Polyethylene Glycol (Polyethylene Glycol 3350 17 Gm Powd.Pack) 17 gm PO DAILY [facility] Last Admin: 11/08/24 09:08 Dose: Not Given Pramipexole Dihydrochloride (Pramipexole Di-Hcl 0.25 Mg Tablet) 0.5 mg PO TID [facility] Last Admin: 11/08/24 20:40 Dose: 0.5 mg Senna/Docusate Sodium (Sennosides/Docusate Sodium Tablet) 1 tab PO BID PRN PRN Reason: no BM for more than 3days Sertraline HCl (Sertraline Hcl 100 Mg Tablet) 100 mg PO DAILY [facility] Last Admin: 11/08/24 08:59 Dose: 100 mg Sodium Chloride (0.9 % Sodium Chloride Flush 10 Ml Syringe) 10 ml IVFLUSH QSHIFT [facility] Last Admin: 11/08/24 17:18 Dose: 10 ml Tamsulosin HCl (Tamsulosin Hcl 0.4 Mg Capsule) 0.8 mg PO BEDTIME [facility] Last Admin: 11/08/24 20:40 Dose: 0.8 mg Thiamine HCl (Thiamine Hcl 100 Mg Tablet) 100 mg PO DAILY [facility] Last Admin: 11/08/24 09:00 Dose: 100 mg Trazodone HCl (Trazodone Hcl 50 Mg Tablet) 50 mg PO BEDTIME PRN PRN Reason: Insomnia Last Admin: 11/06/24 21:45 Dose: 50 mg Trimethoprim/Sulfamethoxazole (Sulfamethox/Trimeth 800/160 Tablet) 1 tab PO BID [facility] Last Admin: 11/08/24 20:40 Dose: 1 tab Allergies Allergies Allergy/AdvReac Type Severity Reaction Status Date / Time No Known Allergies (NKA) Allergy Unknown NONE Verified 10/27/24 19:26 Assessment & Plan Assessment & Plan (1) Catatonia: Status: Acute Code(s): F06.1 - Catatonic disorder due to known physiological condition (2) Schizoaffective disorder: Status: Acute Code(s): F25.9 - Schizoaffective disorder, unspecified (3) Essential hypertension: Status: Acute Code(s): I10 - Essential (primary) hypertension (4) Urinary retention with incomplete bladder emptying: Status: Acute Code(s): R33.9 - Retention of urine, unspecified Plan 59 year-old male with hx of schizoaffective disorder, hypertension, urinary retention, type 2 diabetes, depression recently discharged from on 10/08/2024 after prolonged admission due to treatment resistant catatonia. He had responded to Ketamine treatment, failed ECT with further complications including aspiration. He presented from prison with a change in mental status, he was found wandering in the streets soaked in urine. Depression with decompensation of schizophrenia, catatonia. Status post ketamine treatments, history of ECT with aspiration event Treatment per psych team. Urinary retention/BPH Continue Flomax 0.8mg, Finesteride Dove catheter in place. Follow up urology outpatient Dysphagia Tolerating diet, HOB up. OOB for meals. Mr. 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 He had responded to ketamine treatment, failed ECT with further complications including aspiration. He presents with catatonia again including mutism, waxy flexibility. He had one ketamine treatment since he was discharged from the hospital and only partial dose. He was recommended to do weekly ketamine treatments to prevent catatonia. reports he was taking medications as prescribed. Pending clozapine/norclozapine levels. PLAN 1. Admit to , Sect 12b, 1:1 unsteady gait 2. will check KUB for constipation as pt very poor historian but reports no BM in several days. Will also check bladder scan post void to rule out overflow incontinence due to urinary retention since reports increase incontinence in past few days. Note that he was straight cath while in the ED. 3. restart medications- abilify, sertraline, clozapine, low dose depakote 4. obtain collateral information 5. aftercare panning. 10/29/24 Pt to restart ketamine hcp in effect on 12 b at present 10/30/2024 Patient now on CV by healthcare proxy. Ketamine protocol ordered for the morning the that was previously quite helpful in treating patients catatonia has not responded previously well to lorazepam had only intermittent response to ECT here proxy does not wish ECT treatment and did respond to ketamine Medications continue that previously had been helpful on recent discharge 10/31/2024 Patient given 1st ketamine treatment had respondent previously to a series no change this point. Encourage food and fluids face anxious in appearance mostly mute minimally responsive catatonic symptoms continue. Continue Abilify mirtazapine sertraline Clozaril 150 mg Continue ketamine trial 11/01/2024 Patient remains generally unchanged. Continue clozapine sertraline mirtazapine Abilify 5 mg pramipexole 0.5 t.i.d. part of previous catatonia algorithm. Ketamine scheduled when possible had previously been quite helpful was previously on a 2 week 2 times a week schedule Urinary retention positive urine culture case discussed hospitalist service. Hospitalist consult called. Plan for antibiotics and Dove catheter and then trial without the catheter as possible check electrolytes in the morning may benefit from fluid replacement. Maintain head of the bed elevated supportive nursing care plan to reduce possible congestion 11/02: Continue current regimen and plans 11/03: Continue current plans and regimen Reason for continued inpatient stay 11/05/24 Pt with some imp more alert tolerating ketamine tx needs assist eating walking flat catatonic cont pts catatonia protocal 11/06/2024 Continue plan of care ketamine 11/07/2024 some mild improvement noted continue Monday ketamine treatment 11/07/2024 Patient continues to show improvement from initial catatonia more verbal try to evaluate mood and psychosis. Need clarity why patient was unable to complete outpatient ketamine 11/08/2024 Gradual improvement continues patient able to ambulate independently Dove catheter continues continue ketamine clozapine mirtazapine Abilify Informed Consent: further education needed Reason for continued inpatient stay Substantial Risk for: med/psych decompensation Time Spent With Patient Time: Total time managing care of this patient today ____ minutes.
[2024-11-09] MEDS: 0.9 % Sodium Chloride Flush 10 ML SYRINGE IVFLUSH ×3 (00:24→16:22)
[2024-11-09 08:38] VITALS: BP 107/53; PULSE 67; RESP 20; TEMP 36.6; O2SAT 96
[2024-11-09] MEDS: Sulfamethox/Trimeth 800/160 TABLET 1 TAB PO ×2 (08:51→20:41)
[2024-11-09] MEDS: Ferrous Sulfate 324 MG TABLET.DR PO (08:51)
--- NOTE | 2024-11-09 14:37 | HO.PSYCHPN ---
Subjective Subjective Date of Service: 11/09/24 Reason For Visit: Catatonia Interim History: met with patient; discussed with team; reviewed chart Considerable thought blocking on approach. 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 Staff says patient seemed a little confused this AM, with some resistance to treatment however this cleared up and patient was oriented to self, place and time, feeding himself Mental Status Exam Mental Status Exam Narrative: Patient casually dressed flat in appearance bradykinetic some improved range of affect shakes his head when asked about mood says Not good affect cross between blunted/constricted; no clear response to questions regarding thoughts of self-harm or harm to others; no clear response to hallucinations; impulse control intact Diagnostics Vital Signs (24Hr): Vital Signs - 24 hr 11/08/24 20:00 11/09/24 08:38 Temperature 98.2 F 97.9 F Pulse Rate 76 67 Respiratory Rate 16 20 Blood Pressure 101/51 L 107/53 L Pulse Oximetry 95 96 Oxygen Delivery Method Room Air Room Air BMI result Body Mass Index 27.3 Labs 11/03/24 08:16 11/02/24 07:39 Imaging Radiology Impressions: ITS Impressions KUB X-Ray 10/28/24 16:45 IMPRESSION: Again seen is a large amount of stool throughout the colon and rectum. Electronically signed by: Jose J Gonzalez MD 10/28/2024 05:20 PM EDT Medications Medications Current Medications Acetaminophen (Acetaminophen 325 Mg Tablet) 650 mg PO Q6H PRN PRN Reason: Headache/Pain, Scale 1-10 Last Admin: 11/01/24 20:01 Dose: 650 mg Al Hydroxide/Mg Hydroxide (Magnesium Hydrox/Alum Hydrox 30 Ml Oral.Susp) 30 ml PO Q6H PRN PRN Reason: Heartburn/Nausea Aripiprazole (Aripiprazole 5 Mg Tablet) 5 mg PO DAILY@1730 [facility] Last Admin: 11/08/24 17:18 Dose: 5 mg Ascorbic Acid (Ascorbic Acid 500 Mg Tablet) 500 mg PO DAILY [facility] Last Admin: 11/09/24 08:51 Dose: 500 mg Clozapine (Clozapine 25 Mg Tablet) 150 mg PO DAILY@2000 [facility] Last Admin: 11/08/24 20:40 Dose: 150 mg Divalproex Sodium (Divalproex Sodium Sprinkles 125 Mg Cap.Spr) 500 mg PO DAILY@1999 [facility] Last Admin: 11/08/24 20:41 Dose: 500 mg Enoxaparin Sodium (Enoxaparin Sodium 40 Mg/0.4 Ml Syringe) 40 mg SUBCUT Q24H [facility] Last Admin: 11/08/24 14:46 Dose: 40 mg Ferrous Sulfate (Ferrous Sulfate 324 Mg Tablet.) 324 mg PO DAILY [facility] Last Admin: 11/09/24 08:51 Dose: 324 mg Finasteride (Finasteride 5 Mg Tablet) 5 mg PO DAILY [facility] Last Admin: 11/09/24 08:52 Dose: 5 mg Magnesium Hydroxide (Milk Of Magnesia 30 Ml Oral.Susp) 30 ml PO DAILY PRN PRN Reason: Constipation Magnesium Hydroxide (Milk Of Magnesia 30 Ml Oral.Susp) 5 ml PO BEDTIME [facility] Last Admin: 11/08/24 20:52 Dose: 5 ml Mirtazapine (Mirtazapine 15 Mg Tablet) 15 mg PO BEDTIME [facility] Last Admin: 11/08/24 20:40 Dose: 15 mg Olanzapine (Olanzapine Odt 10 Mg Tab.Rapdis) 5 mg TRANSLINGU BID PRN PRN Reason: agitation Polyethylene Glycol (Polyethylene Glycol 3350 17 Gm Powd.Pack) 17 gm PO DAILY [facility] Last Admin: 11/09/24 10:14 Dose: 17 gm Pramipexole Dihydrochloride (Pramipexole Di-Hcl 0.25 Mg Tablet) 0.5 mg PO TID [facility] Last Admin: 11/09/24 08:51 Dose: 0.5 mg Senna/Docusate Sodium (Sennosides/Docusate Sodium Tablet) 1 tab PO BID PRN PRN Reason: no BM for more than 3days Sertraline HCl (Sertraline Hcl 100 Mg Tablet) 100 mg PO DAILY [facility] Last Admin: 11/09/24 08:51 Dose: 100 mg Sodium Chloride (0.9 % Sodium Chloride Flush 10 Ml Syringe) 10 ml IVFLUSH QSHIFT [facility] Last Admin: 11/09/24 08:41 Dose: 10 ml Tamsulosin HCl (Tamsulosin Hcl 0.4 Mg Capsule) 0.8 mg PO BEDTIME [facility] Last Admin: 11/08/24 20:40 Dose: 0.8 mg Thiamine HCl (Thiamine Hcl 100 Mg Tablet) 100 mg PO DAILY [facility] Last Admin: 08/16/25 08:52 Dose: 100 mg Trazodone HCl (Trazodone Hcl 50 Mg Tablet) 50 mg PO BEDTIME PRN PRN Reason: Insomnia Last Admin: 11/06/24 21:45 Dose: 50 mg Trimethoprim/Sulfamethoxazole (Sulfamethox/Trimeth 800/160 Tablet) 1 tab PO BID [facility] Last Admin: 11/09/24 08:51 Dose: 1 tab Allergies Allergies Allergy/AdvReac Type Severity Reaction Status Date / Time No Known Allergies (NKA) Allergy Unknown NONE Verified 10/27/24 19:26 Assessment & Plan Assessment & Plan (1) Catatonia: Status: Acute Code(s): F06.1 - Catatonic disorder due to known physiological condition (2) Schizoaffective disorder: Status: Acute Code(s): F25.9 - Schizoaffective disorder, unspecified (3) Essential hypertension: Status: Acute Code(s): I10 - Essential (primary) hypertension (4) Urinary retention with incomplete bladder emptying: Status: Acute Code(s): R33.9 - Retention of urine, unspecified Plan 59 year-old male with hx of schizoaffective disorder, hypertension, urinary retention, type 2 diabetes, depression recently discharged from on 10/08/2024 after prolonged admission due to treatment resistant catatonia. He had responded to Ketamine treatment, failed ECT with further complications including aspiration. He presented from senior care with a change in mental status, he was found wandering in the streets soaked in urine. Depression with decompensation of schizophrenia, catatonia. Status post ketamine treatments, history of ECT with aspiration event Treatment per psych team. Urinary retention/BPH Continue Flomax 0.8mg, Finesteride Dove catheter in place. Follow up urology outpatient Dysphagia Tolerating diet, HOB up. OOB for meals. Mr. 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 He had responded to ketamine treatment, failed ECT with further complications including aspiration. He presents with catatonia again including mutism, waxy flexibility. He had one ketamine treatment since he was discharged from the hospital and only partial dose. He was recommended to do weekly ketamine treatments to prevent catatonia. reports he was taking medications as prescribed. Pending clozapine/norclozapine levels. PLAN 1. Admit to S1, Sect 12b, 1:1 unsteady gait 2. will check KUB for constipation as pt very poor historian but [facility] reports no BM in several days. Will also check bladder scan post void to rule out overflow incontinence due to urinary retention since GH reports increase incontinence in past few days. Note that he was straight cath while in the ED. 3. restart medications- abilify, sertraline, clozapine, low dose depakote 4. obtain collateral information 5. aftercare panning. 10/29/24 Pt to restart ketamine hcp in effect on 12 b at present 10/30/2024 Patient now on CV by healthcare proxy. Ketamine protocol ordered for the morning the that was previously quite helpful in treating patients catatonia has not responded previously well to lorazepam had only intermittent response to ECT here proxy does not wish ECT treatment and did respond to ketamine Medications continue that previously had been helpful on recent discharge 10/31/2024 Patient given 1st ketamine treatment had respondent previously to a series no change this point. Encourage food and fluids face anxious in appearance mostly mute minimally responsive catatonic symptoms continue. Continue Abilify mirtazapine sertraline Clozaril 150 mg Continue ketamine trial 11/01/2024 Patient remains generally unchanged. Continue clozapine sertraline mirtazapine Abilify 5 mg pramipexole 0.5 t.i.d. part of previous catatonia algorithm. Ketamine scheduled when possible had previously been quite helpful was previously on a 2 week 2 times a week schedule Urinary retention positive urine culture case discussed hospitalist service. Hospitalist consult called. Plan for antibiotics and Dove catheter and then trial without the catheter as possible check electrolytes in the morning may benefit from fluid replacement. Maintain head of the bed elevated supportive nursing care plan to reduce possible congestion 11/02: Continue current regimen and plans 11/03: Continue current plans and regimen Reason for continued inpatient stay 11/05/24 Pt with some imp more alert tolerating ketamine tx needs assist eating walking flat catatonic cont pts catatonia protocal 11/06/2024 Continue plan of care ketamine 11/07/2024 some mild improvement noted continue Monday ketamine treatment 11/07/2024 Patient continues to show improvement from initial catatonia more verbal try to evaluate mood and psychosis. Need clarity why patient was unable to complete outpatient ketamine 11/08/2024 Gradual improvement continues patient able to ambulate independently Dove catheter continues continue ketamine clozapine mirtazapine Abilify 11/09 no change in presentation; continue treatment plan Patient educated on: diagnosis Informed Consent: does not understand Reason for continued inpatient stay Substantial Risk for: inability to function Time Spent With Patient Time: Total time managing care of this patient today ____ minutes.
[2024-11-09 20:00] VITALS: BP 108/51; PULSE 61; RESP 17; TEMP 36.8; O2SAT 94
[2024-11-09] MEDS: Milk of Magnesia 30 ML ORAL.SUSP 5 ML PO (20:39)
[2024-11-09] MEDS: Divalproex Sodium Sprinkles 125 MG CAP.DR.SPR 500 MG PO (20:40)
[2024-11-10] MEDS: 0.9 % Sodium Chloride Flush 10 ML SYRINGE IVFLUSH ×3 (01:46→15:06)
[2024-11-10 08:21] VITALS: BP 116/59; PULSE 83; RESP 14; TEMP 36.4; O2SAT 94
[2024-11-10] MEDS: Sulfamethox/Trimeth 800/160 TABLET 1 TAB PO ×2 (08:23→20:21)
[2024-11-10] MEDS: Ferrous Sulfate 324 MG TABLET.DR PO (08:24)
--- NOTE | 2024-11-10 10:33 | P.PNPSI_ITS ---
Subjective Subjective Date of Service: 11/10/24 Reason For Visit: Catatonia Interim History: Met with patient; discussed with team Been doing much better today, walking around, talking. He agrees and says he is doing all right.' patient remembers that it was hard for him to talk yesterday but unable to say why. Mental Status Exam Mental Status Exam Narrative: Pt is alert and oriented; behavior is cooperative and patient is up walking around, talking; friendly on approach, calm; patient is not in distress; dressed in casual attire and appropriate; mood is described as all right and affect congruent, more naturally expressive; eye contact a little avoidant; Speech is still sparse but when talking normal rate, volume; no psychomotor agitation/retardation present; thought process is goal directed; Thought content is on tx; otherwise pertinent to relevant topics; no delusional ideations expressed; no expressed SI/HI/AVH. Patients insight and judgment appear improving Diagnostics Vital Signs (24Hr): Vital Signs - 24 hr 11/09/24 20:00 11/10/24 08:21 Temperature 98.2 F 97.5 F Pulse Rate 61 83 Respiratory Rate 17 14 Blood Pressure 108/51 L 116/59 L Pulse Oximetry 94 94 Oxygen Delivery Method Room Air Room Air BMI result Body Mass Index 27.3 Labs 11/03/24 08:16 11/02/24 07:39 Imaging Radiology Impressions: ITS Impressions KUB X-Ray 10/28/24 16:45 IMPRESSION: Again seen is a large amount of stool throughout the colon and rectum. Electronically signed by: Jose J Gonzalez MD 10/28/2024 05:20 PM EDT Medications Medications Current Medications Acetaminophen (Acetaminophen 325 Mg Tablet) 650 mg PO Q6H PRN PRN Reason: Headache/Pain, Scale 1-10 Last Admin: 11/01/24 20:01 Dose: 650 mg Al Hydroxide/Mg Hydroxide (Magnesium Hydrox/Alum Hydrox 30 Ml Oral.Susp) 30 ml PO Q6H PRN PRN Reason: Heartburn/Nausea Aripiprazole (Aripiprazole 5 Mg Tablet) 5 mg PO DAILY@1730 [facility] Last Admin: 11/09/24 16:47 Dose: 5 mg Ascorbic Acid (Ascorbic Acid 500 Mg Tablet) 500 mg PO DAILY [facility] Last Admin: 11/10/24 08:22 Dose: 500 mg Clozapine (Clozapine 25 Mg Tablet) 150 mg PO DAILY@1999 [facility] Last Admin: 11/09/24 20:41 Dose: 150 mg Divalproex Sodium (Divalproex Sodium Sprinkles 125 Mg Cap.) 500 mg PO DAILY@1999 [facility] Last Admin: 11/09/24 20:40 Dose: 500 mg Enoxaparin Sodium (Enoxaparin Sodium 40 Mg/0.4 Ml Syringe) 40 mg SUBCUT Q24H [facility] Last Admin: 11/09/24 14:44 Dose: 40 mg Ferrous Sulfate (Ferrous Sulfate 324 Mg Tablet.) 324 mg PO DAILY [facility] Last Admin: 11/10/24 08:24 Dose: 324 mg Finasteride (Finasteride 5 Mg Tablet) 5 mg PO DAILY [facility] Last Admin: 11/10/24 08:24 Dose: 5 mg Magnesium Hydroxide (Milk Of Magnesia 30 Ml Oral.Susp) 30 ml PO DAILY PRN PRN Reason: Constipation Magnesium Hydroxide (Milk Of Magnesia 30 Ml Oral.Susp) 5 ml PO BEDTIME [facility] Last Admin: 11/09/24 20:39 Dose: 5 ml Mirtazapine (Mirtazapine 15 Mg Tablet) 15 mg PO BEDTIME [facility] Last Admin: 11/09/24 20:42 Dose: 15 mg Olanzapine (Olanzapine Odt 10 Mg Tab.Rapdis) 5 mg TRANSLINGU BID PRN PRN Reason: agitation Polyethylene Glycol (Polyethylene Glycol 3350 17 Gm Powd.Pack) 17 gm PO DAILY [facility] Last Admin: 11/10/24 08:24 Dose: 17 gm Pramipexole Dihydrochloride (Pramipexole Di-Hcl 0.25 Mg Tablet) 0.5 mg PO TID [facility] Last Admin: 11/10/24 08:23 Dose: 0.5 mg Senna/Docusate Sodium (Sennosides/Docusate Sodium Tablet) 1 tab PO BID PRN PRN Reason: no BM for more than 3days Sertraline HCl (Sertraline Hcl 100 Mg Tablet) 100 mg PO DAILY [facility] Last Admin: 11/10/24 08:23 Dose: 100 mg Sodium Chloride (0.9 % Sodium Chloride Flush 10 Ml Syringe) 10 ml IVFLUSH QSHIFT [facility] Last Admin: 11/10/24 08:25 Dose: 10 ml Tamsulosin HCl (Tamsulosin Hcl 0.4 Mg Capsule) 0.8 mg PO BEDTIME [facility] Last Admin: 11/09/24 20:41 Dose: 0.8 mg Thiamine HCl (Thiamine Hcl 100 Mg Tablet) 100 mg PO DAILY [facility] Last Admin: 11/10/24 08:24 Dose: 100 mg Trazodone HCl (Trazodone Hcl 50 Mg Tablet) 50 mg PO BEDTIME PRN PRN Reason: Insomnia Last Admin: 11/06/24 21:45 Dose: 50 mg Trimethoprim/Sulfamethoxazole (Sulfamethox/Trimeth 800/160 Tablet) 1 tab PO BID [facility] Last Admin: 11/10/24 08:23 Dose: 1 tab Allergies Allergies Allergy/AdvReac Type Severity Reaction Status Date / Time No Known Allergies (NKA) Allergy Unknown NONE Verified 10/27/24 19:26 Assessment & Plan Assessment & Plan (1) Catatonia: Status: Acute Code(s): F06.1 - Catatonic disorder due to known physiological condition (2) Schizoaffective disorder: Status: Acute Code(s): F25.9 - Schizoaffective disorder, unspecified (3) Essential hypertension: Status: Acute Code(s): I10 - Essential (primary) hypertension (4) Urinary retention with incomplete bladder emptying: Status: Acute Code(s): R33.9 - Retention of urine, unspecified Plan 59 year-old male with hx of schizoaffective disorder, hypertension, urinary retention, type 2 diabetes, depression recently discharged from on 10/08/2024 after prolonged admission due to treatment resistant catatonia. He had responded to Ketamine treatment, failed ECT with further complications including aspiration. He presented from longterm with a change in mental status, he was found wandering in the streets soaked in urine. Depression with decompensation of schizophrenia, catatonia. Status post ketamine treatments, history of ECT with aspiration event Treatment per psych team. Urinary retention/BPH Continue Flomax 0.8mg, Finesteride Dove catheter in place. Follow up urology outpatient Dysphagia Tolerating diet, HOB up. OOB for meals. Mr. 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 He had responded to ketamine treatment, failed ECT with further complications including aspiration. He presents with catatonia again including mutism, waxy flexibility. He had one ketamine treatment since he was discharged from the hospital and only partial dose. He was recommended to do weekly ketamine treatments to prevent catatonia. reports he was taking medications as prescribed. Pending clozapine/norclozapine levels. PLAN 1. Admit to S1, Sect 12b, 1:1 unsteady gait 2. will check KUB for constipation as pt very poor historian but reports no BM in several days. Will also check bladder scan post void to rule out overflow incontinence due to urinary retention since reports increase incontinence in past few days. Note that he was straight cath while in the ED. 3. restart medications- abilify, sertraline, clozapine, low dose depakote 4. obtain collateral information 5. aftercare panning. 10/29/24 Pt to restart ketamine hcp in effect on 12 b at present 10/30/2024 Patient now on CV by healthcare proxy. Ketamine protocol ordered for the morning the that was previously quite helpful in treating patients catatonia has not responded previously well to lorazepam had only intermittent response to ECT here proxy does not wish ECT treatment and did respond to ketamine Medications continue that previously had been helpful on recent discharge 10/31/2024 Patient given 1st ketamine treatment had respondent previously to a series no change this point. Encourage food and fluids face anxious in appearance mostly mute minimally responsive catatonic symptoms continue. Continue Abilify mirtazapine sertraline Clozaril 150 mg Continue ketamine trial 11/01/2024 Patient remains generally unchanged. Continue clozapine sertraline mirtazapine Abilify 5 mg pramipexole 0.5 t.i.d. part of previous catatonia algorithm. Ketamine scheduled when possible had previously been quite helpful was previously on a 2 week 2 times a week schedule Urinary retention positive urine culture case discussed hospitalist service. Hospitalist consult called. Plan for antibiotics and Dove catheter and then trial without the catheter as possible check electrolytes in the morning may benefit from fluid replacement. Maintain head of the bed elevated supportive nursing care plan to reduce possible congestion 11/02: Continue current regimen and plans 11/03: Continue current plans and regimen Reason for continued inpatient stay 11/05/24 Pt with some imp more alert tolerating ketamine tx needs assist eating walking flat catatonic cont pts catatonia protocal 11/06/2024 Continue plan of care ketamine 11/07/2024 some mild improvement noted continue Monday ketamine treatment 11/07/2024 Patient continues to show improvement from initial catatonia more verbal try to evaluate mood and psychosis. Need clarity why patient was unable to complete outpatient ketamine 11/08/2024 Gradual improvement continues patient able to ambulate independently Dove catheter continues continue ketamine clozapine mirtazapine Abilify 11/09 no change in presentation; continue treatment plan 11/10 Been doing much better today, walking around, talking. He agrees and says he is doing all right.' patient remembers that it was hard for him to talk yesterday but unable to say why. Patient educated on: diagnosis Informed Consent: understands Reason for continued inpatient stay Substantial Risk for: rapid decompensation Time Spent With Patient Time: Total time managing care of this patient today ____ minutes.
[2024-11-10 20:00] VITALS: BP 144/66; PULSE 92; RESP 18; TEMP 36.9; O2SAT 97
[2024-11-10] MEDS: Divalproex Sodium Sprinkles 125 MG CAP.DR.SPR 500 MG PO (20:21)
[2024-11-10] MEDS: Milk of Magnesia 30 ML ORAL.SUSP 5 ML PO (20:21)
[2024-11-11] MEDS: 0.9 % Sodium Chloride Flush 10 ML SYRINGE IVFLUSH ×4 (00:51→23:09)
[2024-11-11 08:00] VITALS: BP 112/58; PULSE 86; RESP 16; TEMP 36.4; O2SAT 99
[2024-11-11 09:15] LABS: Neut%MD 70.6 %; WBCANC 4.0 X10*3/uL
[2024-11-11] MEDS: Ferrous Sulfate 324 MG TABLET.DR PO (09:31)
[2024-11-11] MEDS: Sulfamethox/Trimeth 800/160 TABLET 1 TAB PO ×2 (09:31→20:54)
--- NOTE | 2024-11-11 09:45 | P.PNPSI_ITS ---
Subjective Subjective Date of Service: 11/11/24 Reason For Visit: Catatonia Subjective Notes: Conditional Voluntary Interim History: Patient seen psychiatric follow-up case reviewed with staff in treatment planning. Patient has been much more active engaged out of bed ambulating independently. Continues with Dove catheter Mental Status Exam Mental Status Exam Narrative: Pt is alert and oriented; behavior is cooperative and patient is up walking around, talking; friendly on approach, calm; patient is not in distress; dressed in casual attire and appropriate; mood is described as ok and affect congruent, more naturally expressive; eye contact a little avoidant; Speech is still sparse but when talking normal rate, volume; mild psychomotor agitation/retardation present; thought process is goal directed concrete ; Thought content is on tx; otherwise pertinent to relevant topics; some recent paranoid ideation no expressed SI/HI/AVH. Patients insight and judgment appear improving Diagnostics Vital Signs (24Hr): Vital Signs - 24 hr 11/10/24 20:00 Temperature 98.4 F Pulse Rate 92 Respiratory Rate 18 Blood Pressure 144/66 H Pulse Oximetry 97 Oxygen Delivery Method Room Air BMI result Body Mass Index 27.3 Labs 11/03/24 08:16 11/02/24 07:39 Labs: Laboratory Results - last 48 hr 11/11/24 09:06 Absolute Neuts (auto) 2.9 Imaging Radiology Impressions: ITS Impressions KUB X-Ray 10/28/24 16:45 IMPRESSION: Again seen is a large amount of stool throughout the colon and rectum. Electronically signed by: Jose J Gonzalez MD 10/28/2024 05:20 PM EDT RP Medications Medications Current Medications Acetaminophen (Acetaminophen 325 Mg Tablet) 650 mg PO Q6H PRN PRN Reason: Headache/Pain, Scale 1-10 Last Admin: 11/01/24 20:01 Dose: 650 mg Al Hydroxide/Mg Hydroxide (Magnesium Hydrox/Alum Hydrox 30 Ml Oral.Susp) 30 ml PO Q6H PRN PRN Reason: Heartburn/Nausea Aripiprazole (Aripiprazole 5 Mg Tablet) 5 mg PO DAILY@1730 [facility] Last Admin: 11/10/24 16:37 Dose: 5 mg Ascorbic Acid (Ascorbic Acid 500 Mg Tablet) 500 mg PO DAILY [facility] Last Admin: 11/11/24 09:31 Dose: 500 mg Clozapine (Clozapine 25 Mg Tablet) 150 mg PO DAILY@1999 [facility] Last Admin: 11/10/24 20:20 Dose: 150 mg Divalproex Sodium (Divalproex Sodium Sprinkles 125 Mg Cap) 500 mg PO DAILY@1999 [facility] Last Admin: 11/10/24 20:21 Dose: 500 mg Enoxaparin Sodium (Enoxaparin Sodium 40 Mg/0.4 Ml Syringe) 40 mg SUBCUT Q24H [facility] Last Admin: 11/10/24 15:03 Dose: 40 mg Ferrous Sulfate (Ferrous Sulfate 324 Mg Tablet.) 324 mg PO DAILY [facility] Last Admin: 11/11/24 09:31 Dose: 324 mg Finasteride (Finasteride 5 Mg Tablet) 5 mg PO DAILY [facility] Last Admin: 11/11/24 09:30 Dose: 5 mg Ketamine HCl 45 mg/ Sodium (Chloride) 4.5 mls @ 4.5 mls/hr IV ONCE ONE Stop: 11/12/24 07:31 Ketamine HCl 500 mg/ Sodium (Chloride) 255 mls @ 13.586 mls/hr IVCONT .[id number] [facility]; Protocol Magnesium Hydroxide (Milk Of Magnesia 30 Ml Oral.Susp) 30 ml PO DAILY PRN PRN Reason: Constipation Magnesium Hydroxide (Milk Of Magnesia 30 Ml Oral.Susp) 5 ml PO BEDTIME [facility] Last Admin: 11/10/24 20:21 Dose: 5 ml Mirtazapine (Mirtazapine 15 Mg Tablet) 15 mg PO BEDTIME [facility] Last Admin: 11/10/24 20:21 Dose: 15 mg Olanzapine (Olanzapine Odt 10 Mg Tab.Rapdis) 5 mg TRANSLINGU BID PRN PRN Reason: agitation Polyethylene Glycol (Polyethylene Glycol 3350 17 Gm Powd.Pack) 17 gm PO DAILY [facility] Last Admin: 11/11/24 09:31 Dose: 17 gm Pramipexole Dihydrochloride (Pramipexole Di-Hcl 0.25 Mg Tablet) 0.5 mg PO TID [facility] Last Admin: 11/11/24 09:31 Dose: 0.5 mg Senna/Docusate Sodium (Sennosides/Docusate Sodium Tablet) 1 tab PO BID PRN PRN Reason: no BM for more than 3days Sertraline HCl (Sertraline Hcl 100 Mg Tablet) 100 mg PO DAILY [facility] Last Admin: 11/11/24 09:31 Dose: 100 mg Sodium Chloride (0.9 % Sodium Chloride Flush 10 Ml Syringe) 10 ml IVFLUSH QSHIFT [facility] Last Admin: 11/11/24 09:35 Dose: 10 ml Tamsulosin HCl (Tamsulosin Hcl 0.4 Mg Capsule) 0.8 mg PO BEDTIME [facility] Last Admin: 11/10/24 20:21 Dose: 0.8 mg Thiamine HCl (Thiamine Hcl 100 Mg Tablet) 100 mg PO DAILY [facility] Last Admin: 11/11/24 09:31 Dose: 100 mg Trazodone HCl (Trazodone Hcl 50 Mg Tablet) 50 mg PO BEDTIME PRN PRN Reason: Insomnia Last Admin: 11/06/24 21:45 Dose: 50 mg Trimethoprim/Sulfamethoxazole (Sulfamethox/Trimeth 800/160 Tablet) 1 tab PO BID [facility] Last Admin: 11/11/24 09:31 Dose: 1 tab Allergies Allergies Allergy/AdvReac Type Severity Reaction Status Date / Time No Known Allergies (NKA) Allergy Unknown NONE Verified 10/27/24 19:26 Assessment & Plan Assessment & Plan (1) Catatonia: Status: Acute Code(s): F06.1 - Catatonic disorder due to known physiological condition (2) Schizoaffective disorder: Status: Acute Code(s): F25.9 - Schizoaffective disorder, unspecified (3) Essential hypertension: Status: Acute Code(s): I10 - Essential (primary) hypertension (4) Urinary retention with incomplete bladder emptying: Status: Acute Code(s): R33.9 - Retention of urine, unspecified Plan 59 year-old male with hx of schizoaffective disorder, hypertension, urinary retention, type 2 diabetes, depression recently discharged from on 10/08/2024 after prolonged admission due to treatment resistant catatonia. He had responded to Ketamine treatment, failed ECT with further complications including aspiration. [facility] with a change in mental status, he was found wandering in the streets soaked in urine. Depression with decompensation of schizophrenia, catatonia. Status post ketamine treatments, history of ECT with aspiration event Treatment per psych team. Urinary retention/BPH Continue Flomax 0.8mg, Finesteride Dove catheter in place. Follow up urology outpatient Dysphagia Tolerating diet, HOB up. OOB for meals. Mr. Jona is a 59 year-old male with hx of schizoaffective disorder recently discharged from on 10/08/2024 after prologued admission due to treatment resistant catatonia. He had responded to ketamine treatment, failed ECT with further complications including aspiration. He presents with catatonia again including mutism, waxy flexibility. He had one ketamine treatment since he was discharged from the hospital and only partial dose. He was recommended to do weekly ketamine treatments to prevent catatonia. reports he was taking medications as prescribed. Pending clozapine/norclozapine levels. PLAN 1. Admit to S1, Sect 12b, 1:1 unsteady gait 2. will check KUB for constipation as pt very poor historian but reports no BM in several days. Will also check bladder scan post void to rule out overflow incontinence due to urinary retention since reports increase incontinence in past few days. Note that he was straight cath while in the ED. 3. restart medications- abilify, sertraline, clozapine, low dose depakote 4. obtain collateral information 5. aftercare panning. 10/29/24 Pt to restart ketamine hcp in effect on 12 b at present 10/30/2024 Patient now on CV by healthcare proxy. Ketamine protocol ordered for the morning the that was previously quite helpful in treating patients catatonia has not responded previously well to lorazepam had only intermittent response to ECT here proxy does not wish ECT treatment and did respond to ketamine Medications continue that previously had been helpful on recent discharge 10/31/2024 Patient given 1st ketamine treatment had respondent previously to a series no change this point. Encourage food and fluids face anxious in appearance mostly mute minimally responsive catatonic symptoms continue. Continue Abilify mirtazapine sertraline Clozaril 150 mg Continue ketamine trial 11/01/2024 Patient remains generally unchanged. Continue clozapine sertraline mirtazapine Abilify 5 mg pramipexole 0.5 t.i.d. part of previous catatonia algorithm. Ketamine scheduled when possible had previously been quite helpful was previously on a 2 week 2 times a week schedule Urinary retention positive urine culture case discussed hospitalist service. Hospitalist consult called. Plan for antibiotics and Dove catheter and then trial without the catheter as possible check electrolytes in the morning may benefit from fluid replacement. Maintain head of the bed elevated supportive nursing care plan to reduce possible congestion 11/02: Continue current regimen and plans 11/03: Continue current plans and regimen Reason for continued inpatient stay 11/05/24 Pt with some imp more alert tolerating ketamine tx needs assist eating walking flat catatonic cont pts catatonia protocal 11/06/2024 Continue plan of care ketamine 11/07/2024 some mild improvement noted continue Monday ketamine treatment 11/07/2024 Patient continues to show improvement from initial catatonia more verbal try to evaluate mood and psychosis. Need clarity why patient was unable to complete outpatient ketamine 11/08/2024 Gradual improvement continues patient able to ambulate independently Dove catheter continues continue ketamine clozapine mirtazapine Abilify 11/09 no change in presentation; continue treatment plan 11/10 Been doing much better today, walking around, talking. He agrees and says he is doing all right.' patient remembers that it was hard for him to talk yesterday but unable to say why. 11/11/2024 Patient has had 2 days of marked improvement unable to explain behavior prior to admission refusing intravenous ketamine what exactly happened home and why he has negative connotations unable to give a clear history regarding this appears to be responding well to continue ketamine increase Depakote Reason for continued inpatient stay Substantial Risk for: rapid decompensation and med/psych decompensation Time Spent With Patient Time: Total time managing care of this patient today ____ minutes.
--- NOTE | 2024-11-11 10:43 | PC.NURSE ---
Midline R antecub flushed without difficulty. Negative blood return. Dr. Huerta notified.
--- NOTE | 2024-11-11 16:18 | MHC.CLN ---
F/U DIET=REGULAR. ENSURE TID (1050 KCALS, 60 G PROTEIN) TO PROMOTE NUTRITIONAL INTAKE. MOST RECENT INTAKE VERY GOOD. CONTINUE TO FOLLOW FOR PO INTAKE. RD TO MONITOR WEEKLY.
[2024-11-11 20:00] VITALS: BP 117/58; PULSE 88; RESP 18; TEMP 36.6; O2SAT 98
[2024-11-11] MEDS: Divalproex Sodium Sprinkles 125 MG CAP.DR.SPR 750 MG PO (20:54)
[2024-11-11] MEDS: Milk of Magnesia 30 ML ORAL.SUSP 5 ML PO (20:55)
[2024-11-12 06:27] VITALS: BP 110/58; PULSE 73; RESP 18; TEMP 36.9; O2SAT 97
[2024-11-12] MEDS: Sulfamethox/Trimeth 800/160 TABLET 1 TAB PO ×2 (08:22→23:01)
[2024-11-12] MEDS: Ferrous Sulfate 324 MG TABLET.DR PO (08:22)
[2024-11-12] MEDS: 0.9 % Sodium Chloride Flush 10 ML SYRINGE IVFLUSH ×2 (14:58→23:12)
[2024-11-12 20:00] VITALS: BP 110/60; PULSE 80; RESP 16; TEMP 36.9; O2SAT 98
--- NOTE | 2024-11-12 21:18 | HO.PSYCHPN ---
Subjective Subjective Date of Service: 11/12/24 Reason For Visit: Catatonia Mental Status Exam Mental Status Exam Narrative: Pt is alert and oriented; behavior is cooperative and patient is up walking around, talking; friendly on approach, calm; patient is not in distress; dressed in casual attire and appropriate; mood is good somewhat expansive, volume; mild psychomotor agitation/retardation present; thought process is goal directed concrete ; Thought content is on tx; otherwise pertinent to relevant topics; some recent paranoid ideation no expressed SI/HI/AVH. Patients insight and judgment appear improving patient asking if the Dove catheter can come out no hallucinations Diagnostics Vital Signs (24Hr): Vital Signs - 24 hr 11/12/24 06:27 Temperature 98.4 F Pulse Rate 73 Respiratory Rate 18 Blood Pressure 110/58 L Pulse Oximetry 97 Oxygen Delivery Method Room Air BMI result Body Mass Index 27.3 Labs 11/03/24 08:16 11/02/24 07:39 Labs: Laboratory Results - last 48 hr 11/11/24 09:06 Absolute Neuts (auto) 2.9 Imaging Radiology Impressions: ITS Impressions KUB X-Ray 10/28/24 16:45 IMPRESSION: Again seen is a large amount of stool throughout the colon and rectum. Electronically signed by: Jose J Gonzalez MD 10/28/2024 05:20 PM EDT Medications Medications Current Medications Acetaminophen (Acetaminophen 325 Mg Tablet) 650 mg PO Q6H PRN PRN Reason: Headache/Pain, Scale 1-10 Last Admin: 11/01/24 20:01 Dose: 650 mg Al Hydroxide/Mg Hydroxide (Magnesium Hydrox/Alum Hydrox 30 Ml Oral.Susp) 30 ml PO Q6H PRN PRN Reason: Heartburn/Nausea Aripiprazole (Aripiprazole 5 Mg Tablet) 5 mg PO DAILY@1730 REPLACED BY [facility] Last Admin: 11/12/24 17:02 Dose: 5 mg Ascorbic Acid (Ascorbic Acid 500 Mg Tablet) 500 mg PO DAILY REPLACED BY [facility] Last Admin: 11/12/24 08:22 Dose: 500 mg Clozapine (Clozapine 25 Mg Tablet) 150 mg PO DAILY@1999 REPLACED BY [facility] Last Admin: 11/11/24 20:53 Dose: 150 mg Divalproex Sodium (Divalproex Sodium Sprinkles 125 Mg ) 750 mg PO DAILY@1999 REPLACED BY [facility] Last Admin: 11/11/24 20:54 Dose: 750 mg Enoxaparin Sodium (Enoxaparin Sodium 40 Mg/0.4 Ml Syringe) 40 mg SUBCUT Q24H REPLACED BY [facility] Last Admin: 11/12/24 14:59 Dose: 40 mg Ferrous Sulfate (Ferrous Sulfate 324 Mg Tablet.Dr) 324 mg PO DAILY REPLACED BY [facility] Last Admin: 11/12/24 08:22 Dose: 324 mg Finasteride (Finasteride 5 Mg Tablet) 5 mg PO DAILY REPLACED BY [facility] Last Admin: 11/12/24 08:23 Dose: 5 mg Ketamine HCl 45 mg/ Sodium (Chloride) 45 mls @ 45 mls/hr IV ONCE ONE Stop: 11/14/24 08:29 Magnesium Hydroxide (Milk Of Magnesia 30 Ml Oral.Susp) 30 ml PO DAILY PRN PRN Reason: Constipation Magnesium Hydroxide (Milk Of Magnesia 30 Ml Oral.Susp) 5 ml PO BEDTIME REPLACED BY [facility] Last Admin: 11/11/24 20:55 Dose: 5 ml Mirtazapine (Mirtazapine 15 Mg Tablet) 15 mg PO BEDTIME REPLACED BY [facility] Last Admin: 11/11/24 20:54 Dose: 15 mg Olanzapine (Olanzapine Odt 10 Mg Tab.Rapdis) 5 mg TRANSLINGU BID PRN PRN Reason: agitation Polyethylene Glycol (Polyethylene Glycol 3350 17 Gm Powd.Pack) 17 gm PO DAILY REPLACED BY [facility] Last Admin: 11/12/24 08:23 Dose: 17 gm Pramipexole Dihydrochloride (Pramipexole Di-Hcl 0.25 Mg Tablet) 0.5 mg PO TID REPLACED BY [facility] Last Admin: 11/12/24 14:58 Dose: 0.5 mg Senna/Docusate Sodium (Sennosides/Docusate Sodium Tablet) 1 tab PO BID PRN PRN Reason: no BM for more than 3days Sertraline HCl (Sertraline Hcl 100 Mg Tablet) 100 mg PO DAILY REPLACED BY [facility] Last Admin: 11/12/24 08:22 Dose: 100 mg Sodium Chloride (0.9 % Sodium Chloride Flush 10 Ml Syringe) 10 ml IVFLUSH QSHIFT REPLACED BY [facility] Last Admin: 11/12/24 17:03 Dose: Not Given Tamsulosin HCl (Tamsulosin Hcl 0.4 Mg Capsule) 0.8 mg PO BEDTIME REPLACED BY [facility] Last Admin: 11/11/24 20:54 Dose: 0.8 mg Thiamine HCl (Thiamine Hcl 100 Mg Tablet) 100 mg PO DAILY REPLACED BY [facility] Last Admin: 11/12/24 08:22 Dose: 100 mg Trazodone HCl (Trazodone Hcl 50 Mg Tablet) 50 mg PO BEDTIME PRN PRN Reason: Insomnia Last Admin: 11/06/24 21:45 Dose: 50 mg Trimethoprim/Sulfamethoxazole (Sulfamethox/Trimeth 800/160 Tablet) 1 tab PO BID REPLACED BY [facility] Last Admin: 11/12/24 08:22 Dose: 1 tab Allergies Allergies Allergy/AdvReac Type Severity Reaction Status Date / Time No Known Allergies (NKA) Allergy Unknown NONE Verified 10/27/24 19:26 Assessment & Plan Assessment & Plan (1) Catatonia: Status: Acute Code(s): F06.1 - Catatonic disorder due to known physiological condition (2) Schizoaffective disorder: Status: Acute Code(s): F25.9 - Schizoaffective disorder, unspecified (3) Essential hypertension: Status: Acute Code(s): I10 - Essential (primary) hypertension (4) Urinary retention with incomplete bladder emptying: Status: Acute Code(s): R33.9 - Retention of urine, unspecified Plan 59 year-old male with hx of schizoaffective disorder, hypertension, urinary retention, type 2 diabetes, depression recently discharged from on 10/08/2024 after prolonged admission due to treatment resistant catatonia. He had responded to Ketamine treatment, failed ECT with further complications including aspiration. He presented from prison with a change in mental status, he was found wandering in the streets soaked in urine. Depression with decompensation of schizophrenia, catatonia. Status post ketamine treatments, history of ECT with aspiration event Treatment per psych team. Urinary retention/BPH Continue Flomax 0.8mg, Finesteride Dove catheter in place. Follow up urology outpatient Dysphagia Tolerating diet, HOB up. OOB for meals. Mr. 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 He had responded to ketamine treatment, failed ECT with further complications including aspiration. He presents with catatonia again including mutism, waxy flexibility. He had one ketamine treatment since he was discharged from the hospital and only partial dose. He was recommended to do weekly ketamine treatments to prevent catatonia. reports he was taking medications as prescribed. Pending clozapine/norclozapine levels. PLAN 1. Admit to S1, Sect 12b, 1:1 unsteady gait 2. will check KUB for constipation as pt very poor historian but reports no BM in several days. Will also check bladder scan post void to rule out overflow incontinence due to urinary retention since GH reports increase incontinence in past few days. Note that he was straight cath while in the ED. 3. restart medications- abilify, sertraline, clozapine, low dose depakote 4. obtain collateral information 5. aftercare panning. 10/29/24 Pt to restart ketamine hcp in effect on 12 b at present 10/30/2024 Patient now on CV by healthcare proxy. Ketamine protocol ordered for the morning the that was previously quite helpful in treating patients catatonia has not responded previously well to lorazepam had only intermittent response to ECT here proxy does not wish ECT treatment and did respond to ketamine Medications continue that previously had been helpful on recent discharge 10/31/2024 Patient given 1st ketamine treatment had respondent previously to a series no change this point. Encourage food and fluids face anxious in appearance mostly mute minimally responsive catatonic symptoms continue. Continue Abilify mirtazapine sertraline Clozaril 150 mg Continue ketamine trial 11/01/2024 Patient remains generally unchanged. Continue clozapine sertraline mirtazapine Abilify 5 mg pramipexole 0.5 t.i.d. part of previous catatonia algorithm. Ketamine scheduled when possible had previously been quite helpful was previously on a 2 week 2 times a week schedule Urinary retention positive urine culture case discussed hospitalist service. Hospitalist consult called. Plan for antibiotics and Dove catheter and then trial without the catheter as possible check electrolytes in the morning may benefit from fluid replacement. Maintain head of the bed elevated supportive nursing care plan to reduce possible congestion 11/02: Continue current regimen and plans 11/03: Continue current plans and regimen Reason for continued inpatient stay 11/05/24 Pt with some imp more alert tolerating ketamine tx needs assist eating walking flat catatonic cont pts catatonia protocal 11/06/2024 Continue plan of care ketamine 11/07/2024 some mild improvement noted continue Monday ketamine treatment 11/07/2024 Patient continues to show improvement from initial catatonia more verbal try to evaluate mood and psychosis. Need clarity why patient was unable to complete outpatient ketamine 11/08/2024 Gradual improvement continues patient able to ambulate independently Dove catheter continues continue ketamine clozapine mirtazapine Abilify 11/09 no change in presentation; continue treatment plan 11/10 Been doing much better today, walking around, talking. He agrees and says he is doing all right.' patient remembers that it was hard for him to talk yesterday but unable to say why. 11/11/2024 Patient has had 2 days of marked improvement unable to explain behavior prior to admission refusing intravenous ketamine what exactly happened home and why he has negative connotations unable to give a clear history regarding this appears to be responding well to continue ketamine increase Depakote 11/12/2024 Will try discontinue Dove catheter and voiding trial. Monitor for cycling change patient appears to be shifting out of catatonia much orozco range of affect future oriented. Ketamine held today scheduled for 821. Continue Abilify clozapine Depakote try and determine lowest schedule for ketamine that maintains patient very little to go by to guide this decision Reason for continued inpatient stay Substantial Risk for: inability to function and rapid decompensation Time Spent With Patient Time: Total time managing care of this patient today ____ minutes.
[2024-11-12] MEDS: Divalproex Sodium Sprinkles 125 MG CAP.DR.SPR 750 MG PO (22:58)
[2024-11-12] MEDS: Milk of Magnesia 30 ML ORAL.SUSP 5 ML PO (22:59)
[2024-11-13 08:00] VITALS: BP 116/58; PULSE 68; RESP 16; TEMP 36.9; O2SAT 97
[2024-11-13] MEDS: Ferrous Sulfate 324 MG TABLET.DR PO (08:24)
[2024-11-13] MEDS: Sulfamethox/Trimeth 800/160 TABLET 1 TAB PO ×2 (08:24→20:46)
[2024-11-13] MEDS: 0.9 % Sodium Chloride Flush 10 ML SYRINGE IVFLUSH ×2 (08:41→17:14)
--- NOTE | 2024-11-13 12:12 | P.PNPSI_ITS ---
Subjective Subjective Date of Service: 11/13/24 Reason For Visit: Catatonia Subjective Notes: Conditional Voluntary Interim History: Patient with much orozco range of affect more social and engaged Dove catheter out no current urinary retention Mental Status Exam Mental Status Exam Narrative: Pt is alert and oriented; behavior is cooperative and patient is up walking around, talking; friendly on approach, calm; patient is not in distress; dressed in casual attire and appropriate; mood is good somewhat expansive, volume; mild psychomotor agitation/retardation present; thought process is goal directed concrete ; Thought content is on tx; otherwise pertinent to relevant topics; some recent paranoid ideation no expressed SI/HI/AVH. Patients insight and judgment appear improving patient asking if the Dove catheter can come out no hallucinations Diagnostics Vital Signs (24Hr): Vital Signs - 24 hr 11/12/24 20:00 11/13/24 08:00 Temperature 98.4 F 98.4 F Pulse Rate 80 68 Respiratory Rate 16 16 Blood Pressure 110/60 116/58 L Pulse Oximetry 98 97 Oxygen Delivery Method Room Air Room Air BMI result Body Mass Index 27.3 Labs 11/03/24 08:16 11/02/24 07:39 Imaging Radiology Impressions: ITS Impressions KUB X-Ray 10/28/24 16:45 IMPRESSION: Again seen is a large amount of stool throughout the colon and rectum. Electronically signed by: Jose J Gonzalez MD 10/28/2024 05:20 PM EDT Medications Medications Current Medications Acetaminophen (Acetaminophen 325 Mg Tablet) 650 mg PO Q6H PRN PRN Reason: Headache/Pain, Scale 1-10 Last Admin: 11/01/24 20:01 Dose: 650 mg Al Hydroxide/Mg Hydroxide (Magnesium Hydrox/Alum Hydrox 30 Ml Oral.Susp) 30 ml PO Q6H PRN PRN Reason: Heartburn/Nausea Aripiprazole (Aripiprazole 5 Mg Tablet) 5 mg PO DAILY@1730 [facility] Last Admin: 11/12/24 17:02 Dose: 5 mg Ascorbic Acid (Ascorbic Acid 500 Mg Tablet) 500 mg PO DAILY [facility] Last Admin: 11/13/24 08:23 Dose: 500 mg Clozapine (Clozapine 25 Mg Tablet) 50 mg PO DAILY@1999 [facility] Last Admin: 11/12/24 23:03 Dose: 50 mg Clozapine (Clozapine 100 Mg Tablet) 100 mg PO DAILY@1999 [facility] Last Admin: 11/12/24 23:04 Dose: 100 mg Divalproex Sodium (Divalproex Sodium Sprinkles 125 Mg ) 750 mg PO DAILY@1999 [facility] Last Admin: 11/12/24 22:58 Dose: 750 mg Enoxaparin Sodium (Enoxaparin Sodium 40 Mg/0.4 Ml Syringe) 40 mg SUBCUT Q24H [facility] Last Admin: 11/12/24 14:59 Dose: 40 mg Ferrous Sulfate (Ferrous Sulfate 324 Mg Tablet.) 324 mg PO DAILY [facility] Last Admin: 11/13/24 08:24 Dose: 324 mg Finasteride (Finasteride 5 Mg Tablet) 5 mg PO DAILY [facility] Last Admin: 11/13/24 08:23 Dose: 5 mg Ketamine HCl 45 mg/ Sodium (Chloride) 45 mls @ 45 mls/hr IV ONCE ONE Stop: 11/14/24 08:29 Magnesium Hydroxide (Milk Of Magnesia 30 Ml Oral.Susp) 30 ml PO DAILY PRN PRN Reason: Constipation Magnesium Hydroxide (Milk Of Magnesia 30 Ml Oral.Susp) 5 ml PO BEDTIME [facility] Last Admin: 11/12/24 22:59 Dose: 5 ml Mirtazapine (Mirtazapine 15 Mg Tablet) 15 mg PO BEDTIME [facility] Last Admin: 11/12/24 23:00 Dose: 15 mg Olanzapine (Olanzapine Odt 10 Mg Tab.Rapdis) 5 mg TRANSLINGU BID PRN PRN Reason: agitation Polyethylene Glycol (Polyethylene Glycol 3350 17 Gm Powd.Pack) 17 gm PO DAILY [facility] Last Admin: 11/13/24 08:23 Dose: 17 gm Pramipexole Dihydrochloride (Pramipexole Di-Hcl 0.25 Mg Tablet) 0.5 mg PO TID [facility] Last Admin: 11/13/24 08:23 Dose: 0.5 mg Senna/Docusate Sodium (Sennosides/Docusate Sodium Tablet) 1 tab PO BID PRN PRN Reason: no BM for more than 3days Sertraline HCl (Sertraline Hcl 100 Mg Tablet) 100 mg PO DAILY [facility] Last Admin: 11/13/24 08:24 Dose: 100 mg Sodium Chloride (0.9 % Sodium Chloride Flush 10 Ml Syringe) 10 ml IVFLUSH QSHIFT [facility] Last Admin: 11/13/24 08:41 Dose: 10 ml Tamsulosin HCl (Tamsulosin Hcl 0.4 Mg Capsule) 0.8 mg PO BEDTIME [facility] Last Admin: 11/12/24 23:00 Dose: 0.8 mg Thiamine HCl (Thiamine Hcl 100 Mg Tablet) 100 mg PO DAILY [facility] Last Admin: 11/13/24 08:24 Dose: 100 mg Trazodone HCl (Trazodone Hcl 50 Mg Tablet) 50 mg PO BEDTIME PRN PRN Reason: Insomnia Last Admin: 11/06/24 21:45 Dose: 50 mg Trimethoprim/Sulfamethoxazole (Sulfamethox/Trimeth 800/160 Tablet) 1 tab PO BID [facility] Last Admin: 11/13/24 08:24 Dose: 1 tab Allergies Allergies Allergy/AdvReac Type Severity Reaction Status Date / Time No Known Allergies (NKA) Allergy Unknown NONE Verified 10/27/24 19:26 Assessment & Plan Assessment & Plan (1) Catatonia: Status: Acute Code(s): F06.1 - Catatonic disorder due to known physiological condition (2) Schizoaffective disorder: Status: Acute Code(s): F25.9 - Schizoaffective disorder, unspecified (3) Essential hypertension: Status: Acute Code(s): I10 - Essential (primary) hypertension (4) Urinary retention with incomplete bladder emptying: Status: Acute Code(s): R33.9 - Retention of urine, unspecified Plan 59 year-old male with hx of schizoaffective disorder, hypertension, urinary retention, type 2 diabetes, depression recently discharged from on 10/08/2024 after prolonged admission due to treatment resistant catatonia. He had responded to Ketamine treatment, failed ECT with further complications including aspiration. He presented from long-term with a change in mental status, he was found wandering in the streets soaked in urine. Depression with decompensation of schizophrenia, catatonia. Status post ketamine treatments, history of ECT with aspiration event Treatment per psych team. Urinary retention/BPH Continue Flomax 0.8mg, Finesteride Dove catheter in place. Follow up urology outpatient Dysphagia Tolerating diet, HOB up. OOB for meals. Mr. 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 He had responded to ketamine treatment, failed ECT with further complications including aspiration. He presents with catatonia again including mutism, waxy flexibility. He had one ketamine treatment since he was discharged from the hospital and only partial dose. He was recommended to do weekly ketamine treatments to prevent catatonia. reports he was taking medications as prescribed. Pending clozapine/norclozapine levels. PLAN 1. Admit to S1, Sect 12b, 1:1 unsteady gait 2. will check KUB for constipation as pt very poor historian but reports no BM in several days. Will also check bladder scan post void to rule out overflow incontinence due to urinary retention since reports increase incontinence in past few days. Note that he was straight cath while in the ED. 3. restart medications- abilify, sertraline, clozapine, low dose depakote 4. obtain collateral information 5. aftercare panning. 10/29/24 Pt to restart ketamine hcp in effect on 12 b at present 10/30/2024 Patient now on CV by healthcare proxy. Ketamine protocol ordered for the morning the that was previously quite helpful in treating patients catatonia has not responded previously well to lorazepam had only intermittent response to ECT here proxy does not wish ECT treatment and did respond to ketamine Medications continue that previously had been helpful on recent discharge 10/31/2024 Patient given 1st ketamine treatment had respondent previously to a series no change this point. Encourage food and fluids face anxious in appearance mostly mute minimally responsive catatonic symptoms continue. Continue Abilify mirtazapine sertraline Clozaril 150 mg Continue ketamine trial 11/01/2024 Patient remains generally unchanged. Continue clozapine sertraline mirtazapine Abilify 5 mg pramipexole 0.5 t.i.d. part of previous catatonia algorithm. Ketamine scheduled when possible had previously been quite helpful was previously on a 2 week 2 times a week schedule Urinary retention positive urine culture case discussed hospitalist service. Hospitalist consult called. Plan for antibiotics and Dove catheter and then trial without the catheter as possible check electrolytes in the morning may benefit from fluid replacement. Maintain head of the bed elevated supportive nursing care plan to reduce possible congestion 11/02: Continue current regimen and plans 11/03: Continue current plans and regimen Reason for continued inpatient stay 11/05/24 Pt with some imp more alert tolerating ketamine tx needs assist eating walking flat catatonic cont pts catatonia protocal 11/06/2024 Continue plan of care ketamine 11/07/2024 some mild improvement noted continue Monday ketamine treatment 11/07/2024 Patient continues to show improvement from initial catatonia more verbal try to evaluate mood and psychosis. Need clarity why patient was unable to complete outpatient ketamine 11/08/2024 Gradual improvement continues patient able to ambulate independently Dove catheter continues continue ketamine clozapine mirtazapine Abilify 11/09 no change in presentation; continue treatment plan 11/10 Been doing much better today, walking around, talking. He agrees and says he is doing all right.' patient remembers that it was hard for him to talk yesterday but unable to say why. 11/11/2024 Patient has had 2 days of marked improvement unable to explain behavior prior to admission refusing intravenous ketamine what exactly happened home and why he has negative connotations unable to give a clear history regarding this appears to be responding well to continue ketamine increase Depakote 11/12/2024 Will try discontinue Dove catheter and voiding trial. Monitor for cycling change patient appears to be shifting out of catatonia much orozco range of affect future oriented. Ketamine held today scheduled for 821. Continue Abilify clozapine Depakote try and determine lowest schedule for ketamine that maintains patient very little to go by to guide this decision 10/2024 Continue plan of care monitor for martha or confusion ketamine in the morning monitor response to discontinuing Dove Reason for continued inpatient stay Substantial Risk for: inability to function and rapid decompensation Time Spent With Patient Time: Total time managing care of this patient today ____ minutes.
[2024-11-13 20:00] VITALS: BP 108/60; PULSE 89; RESP 16; TEMP 36.3; O2SAT 97
[2024-11-13] MEDS: Divalproex Sodium Sprinkles 125 MG CAP.DR.SPR 750 MG PO (20:46)
[2024-11-14] VITALS (13 sets, daily range): BP systolic 106–121; BP diastolic 60–71; PULSE 65–98; RESP 16–18; TEMP 36.5–37; O2SAT 71–99; BMI 27.5
[2024-11-14] MEDS: 0.9 % Sodium Chloride Flush 10 ML SYRINGE IVFLUSH ×2 (01:02→10:29)
[2024-11-14] MEDS: Ferrous Sulfate 324 MG TABLET.DR PO (10:28)
[2024-11-14] MEDS: Sulfamethox/Trimeth 800/160 TABLET 1 TAB PO (10:29)
--- NOTE | 2024-11-14 14:39 | HO.PSYCHPN ---
Subjective Subjective Date of Service: 11/14/24 Reason For Visit: Catatonia Subjective Notes: Conditional Voluntary Interim History: Patient had ketamine treatment in the morning. Later in the afternoon became more anxious internally preoccupied and irritable. Denied SI but clearly more anxious and and would not discuss Mental Status Exam Mental Status Exam Narrative: Pt is alert and oriented; behavior is cooperative and patient is up walking around, talking; friendly on approach, calm; patient is not in distress; dressed in casual attire and appropriate; mood anxious affect constricted later in the day when seen noted increased tremor psychomotor agitation patient denied thoughts of self-harm; thought process is goal directed concrete ; Thought content is on tx; otherwise pertinent to relevant topics; some recent paranoid ideation no expressed SI/HI/AVH. Patients insight and judgment appear improving patient asking if the Dove catheter can come out no hallucinations Diagnostics Vital Signs (24Hr): Vital Signs - 24 hr 11/13/24 20:00 11/14/24 07:30 11/14/24 07:45 Temperature 97.4 F 97.7 F Pulse Rate 89 71 74 Respiratory Rate 16 17 18 Blood Pressure 108/60 121/66 107/63 Pulse Oximetry 97 97 97 Oxygen Delivery Method Room Air Room Air Room Air 11/14/24 08:00 11/14/24 08:15 11/14/24 08:30 Temperature Pulse Rate 65 67 69 Respiratory Rate 18 18 16 Blood Pressure 106/63 110/62 114/60 Pulse Oximetry 97 97 96 Oxygen Delivery Method Room Air Room Air Room Air 11/14/24 08:45 11/14/24 09:00 11/14/24 09:15 Temperature Pulse Rate 74 67 70 Respiratory Rate 16 16 16 Blood Pressure 117/67 111/63 116/65 Pulse Oximetry 71 L 97 97 Oxygen Delivery Method Room Air Room Air Room Air 11/14/24 09:30 11/14/24 09:45 11/14/24 10:00 Temperature Pulse Rate 72 71 70 Respiratory Rate 16 16 16 Blood Pressure 113/71 117/65 115/61 Pulse Oximetry 98 99 99 Oxygen Delivery Method Room Air Room Air Room Air 11/14/24 10:10 Temperature Pulse Rate 70 Respiratory Rate 16 Blood Pressure 116/66 Pulse Oximetry 99 Oxygen Delivery Method Room Air BMI result Body Mass Index 27.5 Labs 11/03/24 08:16 11/02/24 07:39 Imaging Radiology Impressions: ITS Impressions KUB X-Ray 10/28/24 16:45 IMPRESSION: Again seen is a large amount of stool throughout the colon and rectum. Electronically signed by: Jose J Gonzalez MD 10/28/2024 05:20 PM EDT RP Medications Medications Current Medications Acetaminophen (Acetaminophen 325 Mg Tablet) 650 mg PO Q6H PRN PRN Reason: Headache/Pain, Scale 1-10 Last Admin: 11/01/24 20:01 Dose: 650 mg Al Hydroxide/Mg Hydroxide (Magnesium Hydrox/Alum Hydrox 30 Ml Oral.Susp) 30 ml PO Q6H PRN PRN Reason: Heartburn/Nausea Aripiprazole (Aripiprazole 5 Mg Tablet) 5 mg PO DAILY@1730 REPLACED BY [facility] Last Admin: 11/13/24 17:14 Dose: 5 mg Ascorbic Acid (Ascorbic Acid 500 Mg Tablet) 500 mg PO DAILY REPLACED BY [facility] Last Admin: 11/14/24 10:29 Dose: 500 mg Clozapine (Clozapine 25 Mg Tablet) 50 mg PO DAILY@1999 REPLACED BY [facility] Last Admin: 11/13/24 20:46 Dose: 50 mg Clozapine (Clozapine 100 Mg Tablet) 100 mg PO DAILY@1999 REPLACED BY [facility] Last Admin: 11/13/24 20:46 Dose: 100 mg Divalproex Sodium (Divalproex Sodium Sprinkles 125 Mg Cap.) 750 mg PO DAILY@1999 REPLACED BY [facility] Last Admin: 11/13/24 20:46 Dose: 750 mg Enoxaparin Sodium (Enoxaparin Sodium 40 Mg/0.4 Ml Syringe) 40 mg SUBCUT Q24H REPLACED BY [facility] Last Admin: 11/13/24 14:51 Dose: 40 mg Ferrous Sulfate (Ferrous Sulfate 324 Mg Tablet.) 324 mg PO DAILY REPLACED BY [facility] Last Admin: 11/14/24 10:28 Dose: 324 mg Finasteride (Finasteride 5 Mg Tablet) 5 mg PO DAILY REPLACED BY [facility] Last Admin: 11/14/24 10:28 Dose: 5 mg Magnesium Hydroxide (Milk Of Magnesia 30 Ml Oral.Susp) 30 ml PO DAILY PRN PRN Reason: Constipation Magnesium Hydroxide (Milk Of Magnesia 30 Ml Oral.Susp) 5 ml PO BEDTIME REPLACED BY [facility] Last Admin: 11/13/24 21:34 Dose: Not Given Mirtazapine (Mirtazapine 15 Mg Tablet) 15 mg PO BEDTIME REPLACED BY [facility] Last Admin: 11/13/24 20:46 Dose: 15 mg Olanzapine (Olanzapine Odt 10 Mg Tab.Rapdis) 5 mg TRANSLINGU BID PRN PRN Reason: agitation Polyethylene Glycol (Polyethylene Glycol 3350 17 Gm Powd.Pack) 17 gm PO DAILY REPLACED BY [facility] Last Admin: 11/14/24 10:29 Dose: 17 gm Pramipexole Dihydrochloride (Pramipexole Di-Hcl 0.25 Mg Tablet) 0.5 mg PO TID REPLACED BY [facility] Last Admin: 11/14/24 10:28 Dose: 0.5 mg Senna/Docusate Sodium (Sennosides/Docusate Sodium Tablet) 1 tab PO BID PRN PRN Reason: no BM for more than 3days Sertraline HCl (Sertraline Hcl 100 Mg Tablet) 100 mg PO DAILY REPLACED BY [facility] Last Admin: 11/14/24 10:29 Dose: 100 mg Sodium Chloride (0.9 % Sodium Chloride Flush 10 Ml Syringe) 10 ml IVFLUSH QSHIFT REPLACED BY [facility] Last Admin: 11/14/24 10:29 Dose: 10 ml Tamsulosin HCl (Tamsulosin Hcl 0.4 Mg Capsule) 0.8 mg PO BEDTIME REPLACED BY [facility] Last Admin: 11/13/24 20:46 Dose: 0.8 mg Thiamine HCl (Thiamine Hcl 100 Mg Tablet) 100 mg PO DAILY REPLACED BY [facility] Last Admin: 11/14/24 10:29 Dose: 100 mg Trazodone HCl (Trazodone Hcl 50 Mg Tablet) 50 mg PO BEDTIME PRN PRN Reason: Insomnia Last Admin: 11/06/24 21:45 Dose: 50 mg Trimethoprim/Sulfamethoxazole (Sulfamethox/Trimeth 800/160 Tablet) 1 tab PO BID REPLACED BY [facility] Last Admin: 11/14/24 10:29 Dose: 1 tab Allergies Allergies Allergy/AdvReac Type Severity Reaction Status Date / Time No Known Allergies (NKA) Allergy Unknown NONE Verified 10/27/24 19:26 Assessment & Plan Assessment & Plan (1) Catatonia: Status: Acute Code(s): F06.1 - Catatonic disorder due to known physiological condition (2) Schizoaffective disorder: Status: Acute Code(s): F25.9 - Schizoaffective disorder, unspecified (3) Essential hypertension: Status: Acute Code(s): I10 - Essential (primary) hypertension (4) Urinary retention with incomplete bladder emptying: Status: Acute Code(s): R33.9 - Retention of urine, unspecified Plan 59 year-old male with hx of schizoaffective disorder, hypertension, urinary retention, type 2 diabetes, depression recently discharged from [facility] on 10/08/2024 after prolonged admission due to treatment resistant catatonia. He had responded to Ketamine treatment, failed ECT with further complications including aspiration. [facility] with a change in mental status, he was found wandering in the streets soaked in urine. Depression with decompensation of schizophrenia, catatonia. Status post ketamine treatments, history of ECT with aspiration event Treatment per psych team. Urinary retention/BPH Continue Flomax 0.8mg, Finesteride Dove catheter in place. Follow up urology outpatient Dysphagia Tolerating diet, HOB up. OOB for meals. Mr. Tenorio is a 59 year-old male with hx of schizoaffective disorder recently discharged from [facility] on 10/08/2024 after prologued admission due to treatment resistant catatonia. He had responded to ketamine treatment, failed ECT with further complications including aspiration. He presents with catatonia again including mutism, waxy flexibility. He had one ketamine treatment since he was discharged from the hospital and only partial dose. He was recommended to do weekly ketamine treatments to prevent catatonia. reports he was taking medications as prescribed. Pending clozapine/norclozapine levels. PLAN 1. Admit to S1, Sect 12b, 1:1 unsteady gait 2. will check KUB for constipation as pt very poor historian but reports no BM in several days. Will also check bladder scan post void to rule out overflow incontinence due to urinary retention since reports increase incontinence in past few days. Note that he was straight cath while in the ED. 3. restart medications- abilify, sertraline, clozapine, low dose depakote 4. obtain collateral information 5. aftercare panning. 10/29/24 Pt to restart ketamine hcp in effect on 12 b at present 10/30/2024 Patient now on CV by healthcare proxy. Ketamine protocol ordered for the morning the that was previously quite helpful in treating patients catatonia has not responded previously well to lorazepam had only intermittent response to ECT here proxy does not wish ECT treatment and did respond to ketamine Medications continue that previously had been helpful on recent discharge 10/31/2024 Patient given 1st ketamine treatment had respondent previously to a series no change this point. Encourage food and fluids face anxious in appearance mostly mute minimally responsive catatonic symptoms continue. Continue Abilify mirtazapine sertraline Clozaril 150 mg Continue ketamine trial 11/01/2024 Patient remains generally unchanged. Continue clozapine sertraline mirtazapine Abilify 5 mg pramipexole 0.5 t.i.d. part of previous catatonia algorithm. Ketamine scheduled when possible had previously been quite helpful was previously on a 2 week 2 times a week schedule Urinary retention positive urine culture case discussed hospitalist service. Hospitalist consult called. Plan for antibiotics and Dove catheter and then trial without the catheter as possible check electrolytes in the morning may benefit from fluid replacement. Maintain head of the bed elevated supportive nursing care plan to reduce possible congestion 11/02: Continue current regimen and plans 11/03: Continue current plans and regimen Reason for continued inpatient stay 11/05/24 Pt with some imp more alert tolerating ketamine tx needs assist eating walking flat catatonic cont pts catatonia protocal 11/06/2024 Continue plan of care ketamine 11/07/2024 some mild improvement noted continue Monday ketamine treatment 11/07/2024 Patient continues to show improvement from initial catatonia more verbal try to evaluate mood and psychosis. Need clarity why patient was unable to complete outpatient ketamine 11/08/2024 Gradual improvement continues patient able to ambulate independently Dove catheter continues continue ketamine clozapine mirtazapine Abilify 11/09 no change in presentation; continue treatment plan 11/10 Been doing much better today, walking around, talking. He agrees and says he is doing all right.' patient remembers that it was hard for him to talk yesterday but unable to say why. 11/11/2024 Patient has had 2 days of marked improvement unable to explain behavior prior to admission refusing intravenous ketamine what exactly happened home and why he has negative connotations unable to give a clear history regarding this appears to be responding well to continue ketamine increase Depakote 11/12/2024 Will try discontinue Dove catheter and voiding trial. Monitor for cycling change patient appears to be shifting out of catatonia much orozco range of affect future oriented. Ketamine held today scheduled for 821. Continue Abilify clozapine Depakote try and determine lowest schedule for ketamine that maintains patient very little to go by to guide this decision 10/2024 Continue plan of care monitor for martha or confusion ketamine in the morning monitor response to discontinuing Dove 11/14/2024 Patient's some increased anxiety status post ketamine denies psychotic symptoms offered option of lorazepam PRN Will need to evaluate ketamine dosing Reason for continued inpatient stay Substantial Risk for: inability to function, rapid decompensation and med/psych decompensation Time Spent With Patient Time: Total time managing care of this patient today ____ minutes.
[2024-11-14] MEDS: Milk of Magnesia 30 ML ORAL.SUSP 5 ML PO (20:14)
[2024-11-14] MEDS: Divalproex Sodium Sprinkles 125 MG CAP.DR.SPR 750 MG PO (20:15)
[2024-11-15] MEDS: 0.9 % Sodium Chloride Flush 10 ML SYRINGE IVFLUSH ×4 (00:02→23:52)
[2024-11-15 08:00] VITALS: BP 114/56; PULSE 99; RESP 20; TEMP 36.3; O2SAT 96
[2024-11-15] MEDS: Ferrous Sulfate 324 MG TABLET.DR PO (08:26)
--- NOTE | 2024-11-15 11:50 | HO.PSYCHPN ---
Subjective Subjective Date of Service: 11/15/24 Reason For Visit: Catatonia Subjective Notes: Conditional Voluntary Interim History: Patient seen psychiatric follow-up patient disinhibited irritable more agitated. Question mixed state of some nature refused blood work Mental Status Exam Mental Status Exam Narrative: Patient is awake irritable internally preoccupied masturbating in the hallway irritable allows himself to go back into his room. Later the patient is less reactive more cooperative and verbal unable or unwilling to describe what happened to him earlier had refused lab work Diagnostics Vital Signs (24Hr): Vital Signs - 24 hr 11/14/24 20:00 11/15/24 08:00 Temperature 98.6 F 97.4 F Pulse Rate 98 99 Respiratory Rate 16 20 Blood Pressure 118/60 114/56 L Pulse Oximetry 95 96 Oxygen Delivery Method Room Air Room Air BMI result Body Mass Index 27.5 Labs 11/03/24 08:16 11/02/24 07:39 Imaging Radiology Impressions: ITS Impressions KUB X-Ray 10/28/24 16:45 IMPRESSION: Again seen is a large amount of stool throughout the colon and rectum. Electronically signed by: Jose J Gonzalez MD 10/28/2024 05:20 PM EDT RP Medications Medications Current Medications Acetaminophen (Acetaminophen 325 Mg Tablet) 650 mg PO Q6H PRN PRN Reason: Headache/Pain, Scale 1-10 Last Admin: 11/01/24 20:01 Dose: 650 mg Al Hydroxide/Mg Hydroxide (Magnesium Hydrox/Alum Hydrox 30 Ml Oral.Susp) 30 ml PO Q6H PRN PRN Reason: Heartburn/Nausea Aripiprazole (Aripiprazole 10 Mg Tablet) 10 mg PO DAILY@1730 [facility] Ascorbic Acid (Ascorbic Acid 500 Mg Tablet) 500 mg PO DAILY [facility] Last Admin: 11/15/24 08:25 Dose: 500 mg Clozapine (Clozapine 100 Mg Tablet) 100 mg PO DAILY@1999 [facility] Last Admin: 11/14/24 20:16 Dose: 100 mg Clozapine (Clozapine 25 Mg Tablet) 75 mg PO DAILY@1999 [facility] Last Admin: 11/14/24 20:15 Dose: 75 mg Divalproex Sodium (Divalproex Sodium Sprinkles 125 Mg ) 750 mg PO DAILY@1999 [facility] Last Admin: 11/14/24 20:15 Dose: 750 mg Enoxaparin Sodium (Enoxaparin Sodium 40 Mg/0.4 Ml Syringe) 40 mg SUBCUT Q24H [facility] Last Admin: 11/14/24 16:00 Dose: Not Given Ferrous Sulfate (Ferrous Sulfate 324 Mg Tablet.Dr) 324 mg PO DAILY [facility] Last Admin: 11/15/24 08:26 Dose: 324 mg Finasteride (Finasteride 5 Mg Tablet) 5 mg PO DAILY [facility] Last Admin: 11/15/24 08:26 Dose: 5 mg Lorazepam (Lorazepam 1 Mg Tablet) 1 mg PO BID PRN PRN Reason: anxiety Last Admin: 11/14/24 18:09 Dose: 1 mg Magnesium Hydroxide (Milk Of Magnesia 30 Ml Oral.Susp) 30 ml PO DAILY PRN PRN Reason: Constipation Magnesium Hydroxide (Milk Of Magnesia 30 Ml Oral.Susp) 5 ml PO BEDTIME [facility] Last Admin: 11/14/24 20:14 Dose: 5 ml Mirtazapine (Mirtazapine 15 Mg Tablet) 15 mg PO BEDTIME [facility] Last Admin: 11/14/24 20:16 Dose: 15 mg Olanzapine (Olanzapine Odt 10 Mg Tab.Rapdis) 5 mg TRANSLINGU BID PRN PRN Reason: agitation Polyethylene Glycol (Polyethylene Glycol 3350 17 Gm Powd.Pack) 17 gm PO DAILY [facility] Last Admin: 11/15/24 08:26 Dose: 17 gm Pramipexole Dihydrochloride (Pramipexole Di-Hcl 0.25 Mg Tablet) 0.5 mg PO TID [facility] Last Admin: 11/15/24 08:25 Dose: 0.5 mg Senna/Docusate Sodium (Sennosides/Docusate Sodium Tablet) 1 tab PO BID PRN PRN Reason: no BM for more than 3days Sertraline HCl (Sertraline Hcl 100 Mg Tablet) 100 mg PO DAILY [facility] Last Admin: 11/15/24 08:25 Dose: 100 mg Sodium Chloride (0.9 % Sodium Chloride Flush 10 Ml Syringe) 10 ml IVFLUSH QSHIFT [facility] Last Admin: 11/15/24 08:24 Dose: 10 ml Tamsulosin HCl (Tamsulosin Hcl 0.4 Mg Capsule) 0.8 mg PO BEDTIME [facility] Last Admin: 11/14/24 20:16 Dose: 0.8 mg Thiamine HCl (Thiamine Hcl 100 Mg Tablet) 100 mg PO DAILY [facility] Last Admin: 11/15/24 08:25 Dose: 100 mg Trazodone HCl (Trazodone Hcl 50 Mg Tablet) 50 mg PO BEDTIME PRN PRN Reason: Insomnia Last Admin: 11/06/24 21:45 Dose: 50 mg Allergies Allergies Allergy/AdvReac Type Severity Reaction Status Date / Time No Known Allergies (NKA) Allergy Unknown NONE Verified 10/27/24 19:26 Assessment & Plan Assessment & Plan (1) Catatonia: Status: Acute Code(s): F06.1 - Catatonic disorder due to known physiological condition (2) Schizoaffective disorder: Status: Acute Code(s): F25.9 - Schizoaffective disorder, unspecified (3) Essential hypertension: Status: Acute Code(s): I10 - Essential (primary) hypertension (4) Urinary retention with incomplete bladder emptying: Status: Acute Code(s): R33.9 - Retention of urine, unspecified Plan 59 year-old male with hx of schizoaffective disorder, hypertension, urinary retention, type 2 diabetes, depression recently discharged from on 10/08/2024 after prolonged admission due to treatment resistant catatonia. He had responded to Ketamine treatment, failed ECT with further complications including aspiration. He presented from senior living with a change in mental status, he was found wandering in the streets soaked in urine. Depression with decompensation of schizophrenia, catatonia. Status post ketamine treatments, history of ECT with aspiration event Treatment per psych team. Urinary retention/BPH Continue Flomax 0.8mg, Finesteride Dove catheter in place. Follow up urology outpatient Dysphagia Tolerating diet, HOB up. OOB for meals. Mr. 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 He had responded to ketamine treatment, failed ECT with further complications including aspiration. He presents with catatonia again including mutism, waxy flexibility. He had one ketamine treatment since he was discharged from the hospital and only partial dose. He was recommended to do weekly ketamine treatments to prevent catatonia. reports he was taking medications as prescribed. Pending clozapine/norclozapine levels. PLAN 1. Admit to S1, Sect 12b, 1:1 unsteady gait 2. will check KUB for constipation as pt very poor historian but reports no BM in several days. Will also check bladder scan post void to rule out overflow incontinence due to urinary retention since reports increase incontinence in past few days. Note that he was straight cath while in the ED. 3. restart medications- abilify, sertraline, clozapine, low dose depakote 4. obtain collateral information 5. aftercare panning. 10/29/24 Pt to restart ketamine hcp in effect on 12 b at present 10/30/2024 Patient now on CV by healthcare proxy. Ketamine protocol ordered for the morning the that was previously quite helpful in treating patients catatonia has not responded previously well to lorazepam had only intermittent response to ECT here proxy does not wish ECT treatment and did respond to ketamine Medications continue that previously had been helpful on recent discharge 10/31/2024 Patient given 1st ketamine treatment had respondent previously to a series no change this point. Encourage food and fluids face anxious in appearance mostly mute minimally responsive catatonic symptoms continue. Continue Abilify mirtazapine sertraline Clozaril 150 mg Continue ketamine trial 11/01/2024 Patient remains generally unchanged. Continue clozapine sertraline mirtazapine Abilify 5 mg pramipexole 0.5 t.i.d. part of previous catatonia algorithm. Ketamine scheduled when possible had previously been quite helpful was previously on a 2 week 2 times a week schedule Urinary retention positive urine culture case discussed hospitalist service. Hospitalist consult called. Plan for antibiotics and Dove catheter and then trial without the catheter as possible check electrolytes in the morning may benefit from fluid replacement. Maintain head of the bed elevated supportive nursing care plan to reduce possible congestion 11/02: Continue current regimen and plans 11/03: Continue current plans and regimen Reason for continued inpatient stay 11/05/24 Pt with some imp more alert tolerating ketamine tx needs assist eating walking flat catatonic cont pts catatonia protocal 11/06/2024 Continue plan of care ketamine 11/07/2024 some mild improvement noted continue Monday ketamine treatment 11/07/2024 Patient continues to show improvement from initial catatonia more verbal try to evaluate mood and psychosis. Need clarity why patient was unable to complete outpatient ketamine 11/08/2024 Gradual improvement continues patient able to ambulate independently Dove catheter continues continue ketamine clozapine mirtazapine Abilify 11/09 no change in presentation; continue treatment plan 11/10 Been doing much better today, walking around, talking. He agrees and says he is doing all right.' patient remembers that it was hard for him to talk yesterday but unable to say why. 11/11/2024 Patient has had 2 days of marked improvement unable to explain behavior prior to admission refusing intravenous ketamine what exactly happened home and why he has negative connotations unable to give a clear history regarding this appears to be responding well to continue ketamine increase Depakote 11/12/2024 Will try discontinue Dove catheter and voiding trial. Monitor for cycling change patient appears to be shifting out of catatonia much orozco range of affect future oriented. Ketamine held today scheduled for 821. Continue Abilify clozapine Depakote try and determine lowest schedule for ketamine that maintains patient very little to go by to guide this decision 10/2024 Continue plan of care monitor for martha or confusion ketamine in the morning monitor response to discontinuing Dove 11/14/2024 Patient's some increased anxiety status post ketamine denies psychotic symptoms offered option of lorazepam PRN Will need to evaluate ketamine dosing 11/15/2024 Increase Abilify to 10 mg lower sertraline to 50 mg monitor response question patient overstimulated by antidepressants check Depakote level check ammonia Reason for continued inpatient stay Substantial Risk for: harm to others, inability to function and rapid decompensation Time Spent With Patient Time: Total time managing care of this patient today ____ minutes.
[2024-11-15 20:00] VITALS: BP 120/64; PULSE 88; RESP 18; TEMP 36.2; O2SAT 95
[2024-11-15] MEDS: Milk of Magnesia 30 ML ORAL.SUSP 5 ML PO (20:37)
[2024-11-15] MEDS: Divalproex Sodium Sprinkles 125 MG CAP.DR.SPR 750 MG PO (20:37)
[2024-11-16 08:00] VITALS: BP 119/66; PULSE 80; RESP 16; TEMP 36.4; O2SAT 96
[2024-11-16] MEDS: 0.9 % Sodium Chloride Flush 10 ML SYRINGE IVFLUSH ×2 (08:29→16:59)
[2024-11-16] MEDS: Ferrous Sulfate 324 MG TABLET.DR PO (08:30)
--- NOTE | 2024-11-16 10:33 | HO.PSYCHPN ---
Subjective Subjective Date of Service: 11/16/24 Reason For Visit: Catatonia Interim History: Pt seen and discussed with the team. Visable, alert, attentive, social in milieu. Reports he is feeling well and appears improved. Team report after Ketamine on pt had irritability on , anxiety on Monday with good result from Lorazepam. Today reports depression being a 3, anxiety a 6 Medication Compliance: Yes Side effects from medications: No Attending Groups: Yes Review of Systems Acute medical concerns: No Review of Systems Review of Systems none identified today Mental Status Exam Mental Status Exam Patient Appearance: Appropriate Patient Orientation: Person and Place Level of Consciousness: Alert Patient Behavior: Talkative and Good Eye Contact Mood Description: Appropriate Affect Description: Appropriate Ability to Follow Directions: Fair Speech Pattern: Spontaneous Speech Memory Description: Episodic Impaired Thought Process: Distracted Thought Content: positive for [place] and positive for Circumstantial Judgement: Fair Diagnostics Vital Signs (24Hr): Vital Signs - 24 hr 11/15/24 20:00 11/16/24 08:00 Temperature 97.2 F 97.5 F Pulse Rate 88 80 Respiratory Rate 18 16 Blood Pressure 120/64 119/66 Pulse Oximetry 95 96 Oxygen Delivery Method Room Air Room Air BMI result Body Mass Index 27.5 Labs 11/03/24 08:16 11/02/24 07:39 Imaging Radiology Impressions: ITS Impressions KUB X-Ray 10/28/24 16:45 IMPRESSION: Again seen is a large amount of stool throughout the colon and rectum. Electronically signed by: Jose J Gonzalez MD 10/28/2024 05:20 PM EDT Medications Medications Current Medications Acetaminophen (Acetaminophen 325 Mg Tablet) 650 mg PO Q6H PRN PRN Reason: Headache/Pain, Scale 1-10 Last Admin: 11/01/24 20:01 Dose: 650 mg Al Hydroxide/Mg Hydroxide (Magnesium Hydrox/Alum Hydrox 30 Ml Oral.Susp) 30 ml PO Q6H PRN PRN Reason: Heartburn/Nausea Aripiprazole (Aripiprazole 10 Mg Tablet) 10 mg PO DAILY@1730 [facility] Last Admin: 11/15/24 16:34 Dose: 10 mg Ascorbic Acid (Ascorbic Acid 500 Mg Tablet) 500 mg PO DAILY [facility] Last Admin: 11/16/24 08:30 Dose: 500 mg Clozapine (Clozapine 100 Mg Tablet) 100 mg PO DAILY@1999 [facility] Last Admin: 11/15/24 20:38 Dose: 100 mg Clozapine (Clozapine 25 Mg Tablet) 75 mg PO DAILY@1999 [facility] Last Admin: 11/15/24 20:38 Dose: 75 mg Divalproex Sodium (Divalproex Sodium Sprinkles 125 Mg Cap.) 750 mg PO DAILY@1999 [facility] Last Admin: 11/15/24 20:37 Dose: 750 mg Enoxaparin Sodium (Enoxaparin Sodium 40 Mg/0.4 Ml Syringe) 40 mg SUBCUT Q24H [facility] Last Admin: 11/15/24 15:11 Dose: 40 mg Ferrous Sulfate (Ferrous Sulfate 324 Mg Tablet.) 324 mg PO DAILY [facility] Last Admin: 11/16/24 08:30 Dose: 324 mg Finasteride (Finasteride 5 Mg Tablet) 5 mg PO DAILY [facility] Last Admin: 11/16/24 08:30 Dose: 5 mg Lorazepam (Lorazepam 1 Mg Tablet) 1 mg PO BID PRN PRN Reason: anxiety Last Admin: 11/14/24 18:09 Dose: 1 mg Magnesium Hydroxide (Milk Of Magnesia 30 Ml Oral.Susp) 30 ml PO DAILY PRN PRN Reason: Constipation Magnesium Hydroxide (Milk Of Magnesia 30 Ml Oral.Susp) 5 ml PO BEDTIME [facility] Last Admin: 11/15/24 20:37 Dose: 5 ml Mirtazapine (Mirtazapine 15 Mg Tablet) 15 mg PO BEDTIME [facility] Last Admin: 11/15/24 20:38 Dose: 15 mg Olanzapine (Olanzapine Odt 10 Mg Tab.Rapdis) 5 mg TRANSLINGU BID PRN PRN Reason: agitation Polyethylene Glycol (Polyethylene Glycol 3350 17 Gm Powd.Pack) 17 gm PO DAILY [facility] Last Admin: 11/16/24 08:31 Dose: 17 gm Pramipexole Dihydrochloride (Pramipexole Di-Hcl 0.25 Mg Tablet) 0.5 mg PO TID [facility] Last Admin: 11/16/24 08:30 Dose: 0.5 mg Senna/Docusate Sodium (Sennosides/Docusate Sodium Tablet) 1 tab PO BID PRN PRN Reason: no BM for more than 3days Sertraline HCl (Sertraline Hcl 50 Mg Tablet) 50 mg PO DAILY [facility] Last Admin: 11/16/24 08:30 Dose: 50 mg Sodium Chloride (0.9 % Sodium Chloride Flush 10 Ml Syringe) 10 ml IVFLUSH QSHIFT [facility] Last Admin: 11/16/24 08:29 Dose: 10 ml Tamsulosin HCl (Tamsulosin Hcl 0.4 Mg Capsule) 0.8 mg PO BEDTIME [facility] Last Admin: 11/15/24 20:38 Dose: 0.8 mg Thiamine HCl (Thiamine Hcl 100 Mg Tablet) 100 mg PO DAILY [facility] Last Admin: 11/16/24 08:30 Dose: 100 mg Trazodone HCl (Trazodone Hcl 50 Mg Tablet) 50 mg PO BEDTIME PRN PRN Reason: Insomnia Last Admin: 11/06/24 21:45 Dose: 50 mg Allergies Allergies Allergy/AdvReac Type Severity Reaction Status Date / Time No Known Allergies (NKA) Allergy Unknown NONE Verified 10/27/24 19:26 Assessment & Plan Assessment & Plan (1) Catatonia: Status: Acute Code(s): F06.1 - Catatonic disorder due to known physiological condition (2) Schizoaffective disorder: Status: Acute Code(s): F25.9 - Schizoaffective disorder, unspecified (3) Essential hypertension: Status: Acute Code(s): I10 - Essential (primary) hypertension (4) Urinary retention with incomplete bladder emptying: Status: Acute Code(s): R33.9 - Retention of urine, unspecified Plan 59 year-old male with hx of schizoaffective disorder, hypertension, urinary retention, type 2 diabetes, depression recently discharged from on 10/08/2024 after prolonged admission due to treatment resistant catatonia. He had responded to Ketamine treatment, failed ECT with further complications including aspiration. He presented from intermediate with a change in mental status, he was found wandering in the streets soaked in urine. Depression with decompensation of schizophrenia, catatonia. Status post ketamine treatments, history of ECT with aspiration event Treatment per psych team. Urinary retention/BPH Continue Flomax 0.8mg, Finesteride Dove catheter in place. Follow up urology outpatient Dysphagia Tolerating diet, HOB up. OOB for meals. Mr. 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 He had responded to ketamine treatment, failed ECT with further complications including aspiration. He presents with catatonia again including mutism, waxy flexibility. He had one ketamine treatment since he was discharged from the hospital and only partial dose. He was recommended to do weekly ketamine treatments to prevent catatonia. reports he was taking medications as prescribed. Pending clozapine/norclozapine levels. PLAN 1. Admit to S1, Sect 12b, 1:1 unsteady gait 2. will check KUB for constipation as pt very poor historian but reports no BM in several days. Will also check bladder scan post void to rule out overflow incontinence due to urinary retention since reports increase incontinence in past few days. Note that he was straight cath while in the ED. 3. restart medications- abilify, sertraline, clozapine, low dose depakote 4. obtain collateral information 5. aftercare panning. 10/29/24 Pt to restart ketamine hcp in effect on 12 b at present 10/30/2024 Patient now on CV by healthcare proxy. Ketamine protocol ordered for the morning the that was previously quite helpful in treating patients catatonia has not responded previously well to lorazepam had only intermittent response to ECT here proxy does not wish ECT treatment and did respond to ketamine Medications continue that previously had been helpful on recent discharge 10/31/2024 Patient given 1st ketamine treatment had respondent previously to a series no change this point. Encourage food and fluids face anxious in appearance mostly mute minimally responsive catatonic symptoms continue. Continue Abilify mirtazapine sertraline Clozaril 150 mg Continue ketamine trial 11/01/2024 Patient remains generally unchanged. Continue clozapine sertraline mirtazapine Abilify 5 mg pramipexole 0.5 t.i.d. part of previous catatonia algorithm. Ketamine scheduled when possible had previously been quite helpful was previously on a 2 week 2 times a week schedule Urinary retention positive urine culture case discussed hospitalist service. Hospitalist consult called. Plan for antibiotics and Dove catheter and then trial without the catheter as possible check electrolytes in the morning may benefit from fluid replacement. Maintain head of the bed elevated supportive nursing care plan to reduce possible congestion 11/02: Continue current regimen and plans 11/03: Continue current plans and regimen Reason for continued inpatient stay 11/05/24 Pt with some imp more alert tolerating ketamine tx needs assist eating walking flat catatonic cont pts catatonia protocal 11/06/2024 Continue plan of care ketamine 11/07/2024 some mild improvement noted continue Monday ketamine treatment 11/07/2024 Patient continues to show improvement from initial catatonia more verbal try to evaluate mood and psychosis. Need clarity why patient was unable to complete outpatient ketamine 11/08/2024 Gradual improvement continues patient able to ambulate independently Dove catheter continues continue ketamine clozapine mirtazapine Abilify 11/09 no change in presentation; continue treatment plan 11/10 Been doing much better today, walking around, talking. He agrees and says he is doing all right.' patient remembers that it was hard for him to talk yesterday but unable to say why. 11/11/2024 Patient has had 2 days of marked improvement unable to explain behavior prior to admission refusing intravenous ketamine what exactly happened home and why he has negative connotations unable to give a clear history regarding this appears to be responding well to continue ketamine increase Depakote 11/12/2024 Will try discontinue Dove catheter and voiding trial. Monitor for cycling change patient appears to be shifting out of catatonia much orozco range of affect future oriented. Ketamine held today scheduled for 821. Continue Abilify clozapine Depakote try and determine lowest schedule for ketamine that maintains patient very little to go by to guide this decision 10/2024 Continue plan of care monitor for martha or confusion ketamine in the morning monitor response to discontinuing Dove 11/14/2024 Patient's some increased anxiety status post ketamine denies psychotic symptoms offered option of lorazepam PRN Will need to evaluate ketamine dosing 11/15/2024 Increase Abilify to 10 mg lower sertraline to 50 mg monitor response question patient overstimulated by antidepressants check Depakote level check ammonia 11/16/24 Continue plan of care Reason for continued inpatient stay Substantial Risk for: rapid decompensation Time Spent With Patient Time: Total time managing care of this patient today ____ minutes.
[2024-11-16 20:00] VITALS: BP 120/60; PULSE 89; RESP 16; TEMP 36.9; O2SAT 95
[2024-11-16] MEDS: Milk of Magnesia 30 ML ORAL.SUSP 5 ML PO (20:28)
[2024-11-16] MEDS: Divalproex Sodium Sprinkles 125 MG CAP.DR.SPR 750 MG PO (20:30)
[2024-11-17] MEDS: 0.9 % Sodium Chloride Flush 10 ML SYRINGE IVFLUSH ×4 (00:04→23:56)
[2024-11-17 08:00] VITALS: BP 109/59; PULSE 83; RESP 16; TEMP 36.3; O2SAT 97
[2024-11-17] MEDS: Ferrous Sulfate 324 MG TABLET.DR PO (08:35)
--- NOTE | 2024-11-17 13:21 | P.PNPSI_ITS ---
Subjective Subjective Date of Service: 11/17/24 Reason For Visit: Catatonia Interim History: Pt seen, discussed with team who report increase in anger and verbal abuse today with intermittent outbursts. Pt seen in his room. He is tearful, stating I am aggressive and I don't know why . Did they tell you I said bad words to the nurse . I don't know why. We reviewed pt's medicines and what he could use to decrease these symptoms. I want to apologize first. Medication Compliance: Yes Side effects from medications: No Attending Groups: Intermittent Review of Systems Acute medical concerns: No Medical Review of Systems: unchanged Review of Systems Review of Systems denies Mental Status Exam Mental Status Exam Patient Appearance: Appropriate Patient Orientation: Person and Place Level of Consciousness: Alert Patient Behavior: Talkative, Good Eye Contact and Crying Mood Description: Labile, Angry and Sad Affect Description: Labile, Angry and Sad Ability to Follow Directions: Fair Speech Pattern: Spontaneous Speech Memory Description: Episodic Impaired Thought Process: Distracted Thought Content: positive for Circumstantial Judgement: Fair Diagnostics Vital Signs (24Hr): Vital Signs - 24 hr 11/16/24 20:00 11/17/24 08:00 Temperature 98.4 F 97.4 F Pulse Rate 89 83 Respiratory Rate 16 16 Blood Pressure 120/60 109/59 L Pulse Oximetry 95 97 Oxygen Delivery Method Room Air Room Air BMI result Body Mass Index 27.5 Labs 11/03/24 08:16 11/02/24 07:39 Imaging Radiology Impressions: ITS Impressions KUB X-Ray 10/28/24 16:45 IMPRESSION: Again seen is a large amount of stool throughout the colon and rectum. Electronically signed by: Jose J Gonzalez MD 10/28/2024 05:20 PM EDT Medications Medications Current Medications Acetaminophen (Acetaminophen 325 Mg Tablet) 650 mg PO Q6H PRN PRN Reason: Headache/Pain, Scale 1-10 Last Admin: 11/01/24 20:01 Dose: 650 mg Al Hydroxide/Mg Hydroxide (Magnesium Hydrox/Alum Hydrox 30 Ml Oral.Susp) 30 ml PO Q6H PRN PRN Reason: Heartburn/Nausea Aripiprazole (Aripiprazole 10 Mg Tablet) 10 mg PO DAILY@1730 [facility] Last Admin: 11/16/24 16:58 Dose: 10 mg Ascorbic Acid (Ascorbic Acid 500 Mg Tablet) 500 mg PO DAILY [facility] Last Admin: 11/17/24 08:35 Dose: 500 mg Clozapine (Clozapine 100 Mg Tablet) 100 mg PO DAILY@1999 [facility] Last Admin: 11/16/24 20:30 Dose: 100 mg Clozapine (Clozapine 25 Mg Tablet) 75 mg PO DAILY@1999 [facility] Last Admin: 11/16/24 20:29 Dose: 75 mg Divalproex Sodium (Divalproex Sodium Sprinkles 125 Mg Cap.) 750 mg PO DAILY@1999 [facility] Last Admin: 11/16/24 20:30 Dose: 750 mg Enoxaparin Sodium (Enoxaparin Sodium 40 Mg/0.4 Ml Syringe) 40 mg SUBCUT Q24H [facility] Last Admin: 11/16/24 15:11 Dose: 40 mg Ferrous Sulfate (Ferrous Sulfate 324 Mg Tablet.) 324 mg PO DAILY [facility] Last Admin: 11/17/24 08:35 Dose: 324 mg Finasteride (Finasteride 5 Mg Tablet) 5 mg PO DAILY [facility] Last Admin: 11/17/24 08:35 Dose: 5 mg Lorazepam (Lorazepam 1 Mg Tablet) 1 mg PO BID PRN PRN Reason: anxiety Last Admin: 11/14/24 18:09 Dose: 1 mg Magnesium Hydroxide (Milk Of Magnesia 30 Ml Oral.Susp) 30 ml PO DAILY PRN PRN Reason: Constipation Magnesium Hydroxide (Milk Of Magnesia 30 Ml Oral.Susp) 5 ml PO BEDTIME [facility] Last Admin: 11/16/24 20:28 Dose: 5 ml Mirtazapine (Mirtazapine 15 Mg Tablet) 15 mg PO BEDTIME [facility] Last Admin: 11/16/24 20:30 Dose: 15 mg Olanzapine (Olanzapine Odt 10 Mg Tab.Rapdis) 5 mg TRANSLINGU BID PRN PRN Reason: agitation Polyethylene Glycol (Polyethylene Glycol 3350 17 Gm Powd.Pack) 17 gm PO DAILY [facility] Last Admin: 11/17/24 08:35 Dose: 17 gm Pramipexole Dihydrochloride (Pramipexole Di-Hcl 0.25 Mg Tablet) 0.5 mg PO TID [facility] Last Admin: 11/17/24 08:35 Dose: 0.5 mg Senna/Docusate Sodium (Sennosides/Docusate Sodium Tablet) 1 tab PO BID PRN PRN Reason: no BM for more than 3days Sertraline HCl (Sertraline Hcl 50 Mg Tablet) 50 mg PO DAILY [facility] Last Admin: 11/17/24 08:35 Dose: 50 mg Sodium Chloride (0.9 % Sodium Chloride Flush 10 Ml Syringe) 10 ml IVFLUSH QSHIFT [facility] Last Admin: 11/17/24 00:04 Dose: 10 ml Tamsulosin HCl (Tamsulosin Hcl 0.4 Mg Capsule) 0.8 mg PO BEDTIME [facility] Last Admin: 11/16/24 20:29 Dose: 0.8 mg Thiamine HCl (Thiamine Hcl 100 Mg Tablet) 100 mg PO DAILY [facility] Last Admin: 11/17/24 08:35 Dose: 100 mg Trazodone HCl (Trazodone Hcl 50 Mg Tablet) 50 mg PO BEDTIME PRN PRN Reason: Insomnia Last Admin: 11/06/24 21:45 Dose: 50 mg Allergies Allergies Allergy/AdvReac Type Severity Reaction Status Date / Time No Known Allergies (NKA) Allergy Unknown NONE Verified 10/27/24 19:26 Assessment & Plan Assessment & Plan (1) Catatonia: Status: Acute Code(s): F06.1 - Catatonic disorder due to known physiological condition (2) Schizoaffective disorder: Status: Acute Code(s): F25.9 - Schizoaffective disorder, unspecified (3) Essential hypertension: Status: Acute Code(s): I10 - Essential (primary) hypertension (4) Urinary retention with incomplete bladder emptying: Status: Acute Code(s): R33.9 - Retention of urine, unspecified Plan 59 year-old male with hx of schizoaffective disorder, hypertension, urinary retention, type 2 diabetes, depression recently discharged from on 10/08/2024 after prolonged admission due to treatment resistant catatonia. He had responded to Ketamine treatment, failed ECT with further complications including aspiration. He presented from long term with a change in mental status, he was found wandering in the streets soaked in urine. Depression with decompensation of schizophrenia, catatonia. Status post ketamine treatments, history of ECT with aspiration event Treatment per psych team. Urinary retention/BPH Continue Flomax 0.8mg, Finesteride Dove catheter in place. Follow up urology outpatient Dysphagia Tolerating diet, HOB up. OOB for meals. Mr. Jona is a 59 year-old male with hx of schizoaffective disorder recently discharged from on 10/08/2024 after prologued admission due to treatment resistant catatonia. He had responded to ketamine treatment, failed ECT with further complications including aspiration. He presents with catatonia again including mutism, waxy flexibility. He had one ketamine treatment since he was discharged from the hospital and only partial dose. He was recommended to do weekly ketamine treatments to prevent catatonia. reports he was taking medications as prescribed. Pending clozapine/norclozapine levels. PLAN 1. Admit to S1, Sect 12b, 1:1 unsteady gait 2. will check KUB for constipation as pt very poor historian but reports no BM in several days. Will also check bladder scan post void to rule out overflow incontinence due to urinary retention since reports increase incontinence in past few days. Note that he was straight cath while in the ED. 3. restart medications- abilify, sertraline, clozapine, low dose depakote 4. obtain collateral information 5. aftercare panning. 10/29/24 Pt to restart ketamine hcp in effect on 12 b at present 10/30/2024 Patient now on CV by healthcare proxy. Ketamine protocol ordered for the morning the that was previously quite helpful in treating patients catatonia has not responded previously well to lorazepam had only intermittent response to ECT here proxy does not wish ECT treatment and did respond to ketamine Medications continue that previously had been helpful on recent discharge 10/31/2024 Patient given 1st ketamine treatment had respondent previously to a series no change this point. Encourage food and fluids face anxious in appearance mostly mute minimally responsive catatonic symptoms continue. Continue Abilify mirtazapine sertraline Clozaril 150 mg Continue ketamine trial 11/01/2024 Patient remains generally unchanged. Continue clozapine sertraline mirtazapine Abilify 5 mg pramipexole 0.5 t.i.d. part of previous catatonia algorithm. Ketamine scheduled when possible had previously been quite helpful was previously on a 2 week 2 times a week schedule Urinary retention positive urine culture case discussed hospitalist service. Hospitalist consult called. Plan for antibiotics and Dove catheter and then trial without the catheter as possible check electrolytes in the morning may benefit from fluid replacement. Maintain head of the bed elevated supportive nursing care plan to reduce possible congestion 11/02: Continue current regimen and plans 11/03: Continue current plans and regimen Reason for continued inpatient stay 11/05/24 Pt with some imp more alert tolerating ketamine tx needs assist eating walking flat catatonic cont pts catatonia protocal 11/06/2024 Continue plan of care ketamine 11/07/2024 some mild improvement noted continue Monday ketamine treatment 11/07/2024 Patient continues to show improvement from initial catatonia more verbal try to evaluate mood and psychosis. Need clarity why patient was unable to complete outpatient ketamine 11/08/2024 Gradual improvement continues patient able to ambulate independently Dove catheter continues continue ketamine clozapine mirtazapine Abilify 11/09 no change in presentation; continue treatment plan 11/10 Been doing much better today, walking around, talking. He agrees and says he is doing all right.' patient remembers that it was hard for him to talk yesterday but unable to say why. 11/11/2024 Patient has had 2 days of marked improvement unable to explain behavior prior to admission refusing intravenous ketamine what exactly happened home and why he has negative connotations unable to give a clear history regarding this appears to be responding well to continue ketamine increase Depakote 11/12/2024 Will try discontinue Dove catheter and voiding trial. Monitor for cycling change patient appears to be shifting out of catatonia much orozco range of affect future oriented. Ketamine held today scheduled for 821. Continue Abilify clozapine Depakote try and determine lowest schedule for ketamine that maintains patient very little to go by to guide this decision 10/2024 Continue plan of care monitor for martha or confusion ketamine in the morning monitor response to discontinuing Dove 11/14/2024 Patient's some increased anxiety status post ketamine denies psychotic symptoms offered option of lorazepam PRN Will need to evaluate ketamine dosing 11/15/2024 Increase Abilify to 10 mg lower sertraline to 50 mg monitor response question patient overstimulated by antidepressants check Depakote level check ammonia 11/16/24 Continue plan of care 11/17/24 Continue to monitor Reason for continued inpatient stay Substantial Risk for: rapid decompensation Time Spent With Patient Time: Total time managing care of this patient today ____ minutes.
[2024-11-17 20:00] VITALS: BP 130/64; PULSE 98; RESP 16; TEMP 36.2; O2SAT 94
[2024-11-17] MEDS: Milk of Magnesia 30 ML ORAL.SUSP 5 ML PO (21:18)
[2024-11-17] MEDS: Divalproex Sodium Sprinkles 125 MG CAP.DR.SPR 750 MG PO (21:20)
[2024-11-18 08:15] VITALS: BP 114/56; PULSE 74; RESP 14; TEMP 36; O2SAT 95
[2024-11-18] MEDS: 0.9 % Sodium Chloride Flush 10 ML SYRINGE IVFLUSH ×2 (08:56→15:56)
[2024-11-18] MEDS: Ferrous Sulfate 324 MG TABLET.DR PO (09:01)
[2024-11-18 19:03] LABS: Ammonia 43 umol/L (13-55)
[2024-11-18 19:10] LABS: Alanine Aminotransferase 28 U/L (0-40); Albumin Level 4.0 g/dL (3.5-5.0); Alkaline Phosphatase 63 U/L (39-117); Anion Gap 13 (12-20); Aspartate Amino Transferase 20 U/L (5-37); Blood Urea Nitrogen 39 mg/dL (9-16); Calcium 8.7 mg/dL (8.4-10.2); Carbon Dioxide 28 mmol/L (22-29); Chloride 105 mmol/L (96-108); Creatinine Clr Calc Pharmacy 59.0; Estimated Glomerular Filt Rate 52; Potassium 4.3 mmol/L (3.3-5.1); Sodium 142 mmol/L (135-145); Total Protein 6.5 g/dL (6.5-8.0)
[2024-11-18 19:44] LABS: Neut%MD 63.1 %; WBCANC 6.0 X10*3/uL
[2024-11-18 20:00] VITALS: BP 125/63; PULSE 75; RESP 16; TEMP 36.7; O2SAT 96
[2024-11-18] MEDS: Milk of Magnesia 30 ML ORAL.SUSP 5 ML PO (20:04)
[2024-11-18] MEDS: Divalproex Sodium Sprinkles 125 MG CAP.DR.SPR 750 MG PO (20:05)
--- NOTE | 2024-11-18 21:55 | P.PNPSI_ITS ---
Subjective Subjective Date of Service: 11/18/24 Reason For Visit: Catatonia Subjective Notes: Conditional Voluntary Interim History: Patient seen psychiatric follow-up patient somewhat improved less psychotically preoccupied and bizarre. Has been out in the milieu more cooperative less labile and angry Mental Status Exam Mental Status Exam Patient Appearance: Appropriate Patient Orientation: Person and Place Level of Consciousness: Alert Patient Behavior: Talkative, Good Eye Contact and Crying Mood Description: Sad and Apprehensive Affect Description: Sad Ability to Follow Directions: Fair Speech Pattern: Spontaneous Speech Memory Description: Episodic Impaired Thought Process: Distracted Thought Content: positive for Circumstantial Judgement: Fair Diagnostics Vital Signs (24Hr): Vital Signs - 24 hr 11/18/24 08:15 11/18/24 20:00 Temperature 96.8 F 98.1 F Pulse Rate 74 75 Respiratory Rate 14 16 Blood Pressure 114/56 L 125/63 Pulse Oximetry 95 96 Oxygen Delivery Method Room Air Room Air BMI result Body Mass Index 27.5 Labs 11/03/24 08:16 11/18/24 18:43 Labs: Laboratory Results - last 48 hr 11/18/24 11/18/24 18:43 18:43 Absolute Neuts (auto) 3.8 Sodium 142 Potassium 4.3 Chloride 105 Carbon Dioxide 28 Anion Gap 13 BUN 39 H Creatinine 1.40 Estim Creat Clear Calc 59.0 Estimated GFR 52 Random Glucose 133 H Calcium 8.7 Total Bilirubin 0.2 AST 20 ALT 28 Alkaline Phosphatase 63 Ammonia Cancelled 43 Total Protein 6.5 Albumin 4.0 Valproic Acid 12.9 L Imaging Radiology Impressions: ITS Impressions KUB X-Ray 10/28/24 16:45 IMPRESSION: Again seen is a large amount of stool throughout the colon and rectum. Electronically signed by: Jose J Gonzalez MD 10/28/2024 05:20 PM EDT RP Medications Medications Current Medications Acetaminophen (Acetaminophen 325 Mg Tablet) 650 mg PO Q6H PRN PRN Reason: Headache/Pain, Scale 1-10 Last Admin: 11/01/24 20:01 Dose: 650 mg Al Hydroxide/Mg Hydroxide (Magnesium Hydrox/Alum Hydrox 30 Ml Oral.Susp) 30 ml PO Q6H PRN PRN Reason: Heartburn/Nausea Aripiprazole (Aripiprazole 10 Mg Tablet) 10 mg PO DAILY@1730 KRISTIN Last Admin: 11/18/24 16:42 Dose: 10 mg Ascorbic Acid (Ascorbic Acid 500 Mg Tablet) 500 mg PO DAILY [facility] Last Admin: 11/18/24 09:00 Dose: 500 mg Clozapine (Clozapine 100 Mg Tablet) 200 mg PO DAILY@1999 [facility] Last Admin: 11/18/24 20:05 Dose: 200 mg Divalproex Sodium (Divalproex Sodium Sprinkles 125 Mg Cap.) 750 mg PO DAILY@1999 [facility] Last Admin: 11/18/24 20:05 Dose: 750 mg Enoxaparin Sodium (Enoxaparin Sodium 40 Mg/0.4 Ml Syringe) 40 mg SUBCUT Q24H [facility] Last Admin: 11/18/24 14:39 Dose: 40 mg Ferrous Sulfate (Ferrous Sulfate 324 Mg Tablet.) 324 mg PO DAILY [facility] Last Admin: 11/18/24 09:01 Dose: 324 mg Finasteride (Finasteride 5 Mg Tablet) 5 mg PO DAILY [facility] Last Admin: 11/18/24 09:02 Dose: 5 mg Ketamine HCl 45 mg/ Sodium (Chloride) 4.5 mls @ 4.5 mls/hr IV ONCE ONE Stop: 11/21/24 07:31 Lorazepam (Lorazepam 1 Mg Tablet) 1 mg PO BID PRN PRN Reason: anxiety Last Admin: 11/14/24 18:09 Dose: 1 mg Magnesium Hydroxide (Milk Of Magnesia 30 Ml Oral.Susp) 30 ml PO DAILY PRN PRN Reason: Constipation Magnesium Hydroxide (Milk Of Magnesia 30 Ml Oral.Susp) 5 ml PO BEDTIME [facility] Last Admin: 11/18/24 20:04 Dose: 5 ml Mirtazapine (Mirtazapine 15 Mg Tablet) 15 mg PO BEDTIME [facility] Last Admin: 11/18/24 20:05 Dose: 15 mg Olanzapine (Olanzapine Odt 10 Mg Tab.Rapdis) 5 mg TRANSLINGU BID PRN PRN Reason: agitation Polyethylene Glycol (Polyethylene Glycol 3350 17 Gm Powd.Pack) 17 gm PO DAILY [facility] Last Admin: 11/18/24 09:00 Dose: 17 gm Pramipexole Dihydrochloride (Pramipexole Di-Hcl 0.25 Mg Tablet) 0.5 mg PO TID [facility] Last Admin: 11/18/24 20:06 Dose: 0.5 mg Senna/Docusate Sodium (Sennosides/Docusate Sodium Tablet) 1 tab PO BID PRN PRN Reason: no BM for more than 3days Sertraline HCl (Sertraline Hcl 50 Mg Tablet) 50 mg PO DAILY [facility] Last Admin: 11/18/24 09:01 Dose: 50 mg Sodium Chloride (0.9 % Sodium Chloride Flush 10 Ml Syringe) 10 ml IVFLUSH QSHIFT [facility] Last Admin: 11/18/24 15:56 Dose: 10 ml Tamsulosin HCl (Tamsulosin Hcl 0.4 Mg Capsule) 0.8 mg PO BEDTIME [facility] Last Admin: 11/18/24 20:05 Dose: 0.8 mg Thiamine HCl (Thiamine Hcl 100 Mg Tablet) 100 mg PO DAILY [facility] Last Admin: 11/18/24 09:01 Dose: 100 mg Trazodone HCl (Trazodone Hcl 50 Mg Tablet) 50 mg PO BEDTIME PRN PRN Reason: Insomnia Last Admin: 11/06/24 21:45 Dose: 50 mg Allergies Allergies Allergy/AdvReac Type Severity Reaction Status Date / Time No Known Allergies (NKA) Allergy Unknown NONE Verified 10/27/24 19:26 Assessment & Plan Assessment & Plan (1) Catatonia: Status: Acute Code(s): F06.1 - Catatonic disorder due to known physiological condition (2) Schizoaffective disorder: Status: Acute Code(s): F25.9 - Schizoaffective disorder, unspecified (3) Essential hypertension: Status: Acute Code(s): I10 - Essential (primary) hypertension (4) Urinary retention with incomplete bladder emptying: Status: Acute Code(s): R33.9 - Retention of urine, unspecified Plan 59 year-old male with hx of schizoaffective disorder, hypertension, urinary retention, type 2 diabetes, depression recently discharged from on 10/08/2024 after prolonged admission due to treatment resistant catatonia. He had responded to Ketamine treatment, failed ECT with further complications including aspiration. He presented from [facility] with a change in mental status, he was found wandering in the streets soaked in urine. Depression with decompensation of schizophrenia, catatonia. Status post ketamine treatments, history of ECT with aspiration event Treatment per psych team. Urinary retention/BPH Continue Flomax 0.8mg, Finesteride Dove catheter in place. Follow up urology outpatient Dysphagia Tolerating diet, HOB up. OOB for meals. Mr. 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 He had responded to ketamine treatment, failed ECT with further complications including aspiration. He presents with catatonia again including mutism, waxy flexibility. He had one ketamine treatment since he was discharged from the hospital and only partial dose. He was recommended to do weekly ketamine treatments to prevent catatonia. reports he was taking medications as prescribed. Pending clozapine/norclozapine levels. PLAN 1. Admit to , Sect 12b, 1:1 unsteady gait 2. will check KUB for constipation as pt very poor historian but reports no BM in several days. Will also check bladder scan post void to rule out overflow incontinence due to urinary retention since reports increase incontinence in past few days. Note that he was straight cath while in the ED. 3. restart medications- abilify, sertraline, clozapine, low dose depakote 4. obtain collateral information 5. aftercare panning. 10/29/24 Pt to restart ketamine hcp in effect on 12 b at present 10/30/2024 Patient now on CV by healthcare proxy. Ketamine protocol ordered for the morning the that was previously quite helpful in treating patients catatonia has not responded previously well to lorazepam had only intermittent response to ECT here proxy does not wish ECT treatment and did respond to ketamine Medications continue that previously had been helpful on recent discharge 10/31/2024 Patient given 1st ketamine treatment had respondent previously to a series no change this point. Encourage food and fluids face anxious in appearance mostly mute minimally responsive catatonic symptoms continue. Continue Abilify mirtazapine sertraline Clozaril 150 mg Continue ketamine trial 11/01/2024 Patient remains generally unchanged. Continue clozapine sertraline mirtazapine Abilify 5 mg pramipexole 0.5 t.i.d. part of previous catatonia algorithm. Ketamine scheduled when possible had previously been quite helpful was previously on a 2 week 2 times a week schedule Urinary retention positive urine culture case discussed hospitalist service. Hospitalist consult called. Plan for antibiotics and Dove catheter and then trial without the catheter as possible check electrolytes in the morning may benefit from fluid replacement. Maintain head of the bed elevated supportive nursing care plan to reduce possible congestion 11/02: Continue current regimen and plans 11/03: Continue current plans and regimen Reason for continued inpatient stay 11/05/24 Pt with some imp more alert tolerating ketamine tx needs assist eating walking flat catatonic cont pts catatonia protocal 11/06/2024 Continue plan of care ketamine 11/07/2024 some mild improvement noted continue Monday ketamine treatment 11/07/2024 Patient continues to show improvement from initial catatonia more verbal try to evaluate mood and psychosis. Need clarity why patient was unable to complete outpatient ketamine 11/08/2024 Gradual improvement continues patient able to ambulate independently Dove catheter continues continue ketamine clozapine mirtazapine Abilify 11/09 no change in presentation; continue treatment plan 11/10 Been doing much better today, walking around, talking. He agrees and says he is doing all right.' patient remembers that it was hard for him to talk yesterday but unable to say why. 11/11/2024 Patient has had 2 days of marked improvement unable to explain behavior prior to admission refusing intravenous ketamine what exactly happened home and why he has negative connotations unable to give a clear history regarding this appears to be responding well to continue ketamine increase Depakote 11/12/2024 Will try discontinue Dove catheter and voiding trial. Monitor for cycling change patient appears to be shifting out of catatonia much orozco range of affect future oriented. Ketamine held today scheduled for 821. Continue Abilify clozapine Depakote try and determine lowest schedule for ketamine that maintains patient very little to go by to guide this decision 10/2024 Continue plan of care monitor for martha or confusion ketamine in the morning monitor response to discontinuing Dove 11/14/2024 Patient's some increased anxiety status post ketamine denies psychotic symptoms offered option of lorazepam PRN Will need to evaluate ketamine dosing 11/15/2024 Increase Abilify to 10 mg lower sertraline to 50 mg monitor response question patient overstimulated by antidepressants check Depakote level check ammonia 11/16/24 Continue plan of care check level 11/17/24 Continue to monitor 11/18/2024 Ketamine on hold gradually increase clozapine and Depakote check level Reason for continued inpatient stay Substantial Risk for: inability to function and rapid decompensation Time Spent With Patient Time: Total time managing care of this patient today ____ minutes.
[2024-11-19] MEDS: 0.9 % Sodium Chloride Flush 10 ML SYRINGE IVFLUSH ×4 (00:28→23:17)
[2024-11-19 07:50] VITALS: BP 133/64; PULSE 77; RESP 18; TEMP 36.7; O2SAT 99
[2024-11-19] MEDS: Ferrous Sulfate 324 MG TABLET.DR PO (08:03)
[2024-11-19 11:07] LABS: MANUAL DIFF FLAG NO
[2024-11-19 11:11] LABS: Hematocrit 36.4 % (42.0-52.0); Hemoglobin 11.8 g/dl (14.0-18.0); Imm Gran Abs Auto 0.03 X10*3/uL (0.00-0.03); Imm Gran Pct Auto 0.6 % (0.0-0.4); Lymphocytes Absolute Auto 1.2 X10*3/uL (1.2-4.9); Mean Corpuscular HGB Conc 32.4 g/dl (31.0-36.0); Mean Corpuscular Hemoglobin 29.2 pg (27.0-33.0); Mean Corpuscular Volume 90.1 fL (80.0-98.0); NRBC Abs Auto 0.000 X10*3/uL (0.0-0.012); NRBC Pct Auto 0.0 /100WBC (0.0-0.2); Platelet Count 159 X10*3/uL (160-400); Red Blood Count 4.04 X10*6/uL (4.60-5.80); White Blood Count 4.6 X10*3/uL (4.8-10.8)
[2024-11-19 11:17] LABS: Ammonia 39 umol/L (13-55)
[2024-11-19 11:27] LABS: Alanine Aminotransferase 30 U/L (0-40); Albumin Level 4.4 g/dL (3.5-5.0); Alkaline Phosphatase 56 U/L (39-117); Anion Gap 12 (12-20); Aspartate Amino Transferase 21 U/L (5-37); Blood Urea Nitrogen 35 mg/dL (9-16); Calcium 9.0 mg/dL (8.4-10.2); Carbon Dioxide 31 mmol/L (22-29); Chloride 104 mmol/L (96-108); Creatinine Clr Calc Pharmacy 58.1; Estimated Glomerular Filt Rate 51; Potassium 4.4 mmol/L (3.3-5.1); Sodium 143 mmol/L (135-145); Total Protein 7.0 g/dL (6.5-8.0)
--- NOTE | 2024-11-19 12:33 | P.PNPSI_ITS ---
Subjective Subjective Date of Service: 11/19/24 Reason For Visit: Catatonia Subjective Notes: Conditional Voluntary Healthcare Proxy: Yes Interim History: Patient seen psychiatric follow-up. Patient more social and engaged more cooperative with care. He stated he was feeling irritable. Patient was able to talk about what he like to do at home has been more relaxed Mental Status Exam Mental Status Exam Patient Appearance: Appropriate Patient Orientation: Person and Place Level of Consciousness: Alert Patient Behavior: Talkative and Good Eye Contact Mood Description: Calm, Appropriate and Relaxed Affect Description: Blunted Ability to Follow Directions: Fair Speech Pattern: Spontaneous Speech Memory Description: Episodic Impaired Delusions: Not Present Thought Process: Slowed Thinking Thought Content: positive for Goal Oriented, negative for Suicidal Ideation or negative for Homicidal Ideation Judgement: Fair Diagnostics Vital Signs (24Hr): Vital Signs - 24 hr 11/18/24 20:00 11/19/24 07:50 Temperature 98.1 F 98.1 F Pulse Rate 75 77 Respiratory Rate 16 18 Blood Pressure 125/63 133/64 Pulse Oximetry 96 99 Oxygen Delivery Method Room Air Room Air BMI result Body Mass Index 27.5 Labs 11/19/24 10:54 11/19/24 10:54 Labs: Laboratory Results - last 48 hr 11/18/24 11/18/24 11/19/24 18:43 18:43 10:54 WBC 4.6 L RBC 4.04 L Hgb 11.8 L Hct 36.4 L MCV 90.1 MCH 29.2 MCHC 32.4 RDW 13.4 Plt Count 159 L MPV 10.7 Immature Gran % (Auto) 0.6 H Neut % (Auto) 65.5 Lymph % (Auto) 25.3 [place] % (Auto) 8.4 Eos % (Auto) 0.0 Baso % (Auto) 0.2 Lymph # (Auto) 1.2 [place] # (Auto) 0.4 Eos # (Auto) 0.0 Baso # (Auto) 0.0 Abs Immat Gran (auto) 0.03 Absolute Neuts (auto) 3.8 3.0 Absolute Nucleated RBC 0.000 Nucleated RBC % (auto) 0.0 Sodium 142 143 Potassium 4.3 4.4 Chloride 105 104 Carbon Dioxide 28 31 H Anion Gap 13 12 BUN 39 H 35 H Creatinine 1.40 1.42 H Estim Creat Clear Calc 59.0 58.1 Estimated GFR 52 51 Random Glucose 133 H 84 Calcium 8.7 9.0 Total Bilirubin 0.2 0.3 AST 20 21 ALT 28 30 Alkaline Phosphatase 63 56 Ammonia Cancelled 43 39 Total Protein 6.5 7.0 Albumin 4.0 4.4 Valproic Acid 12.9 L 26.8 L Imaging Radiology Impressions: ITS Impressions KUB X-Ray 10/28/24 16:45 IMPRESSION: Again seen is a large amount of stool throughout the colon and rectum. Electronically signed by: Jose J Gonzalez MD 10/28/2024 05:20 PM EDT RP Medications Medications Current Medications Acetaminophen (Acetaminophen 325 Mg Tablet) 650 mg PO Q6H PRN PRN Reason: Headache/Pain, Scale 1-10 Last Admin: 11/01/24 20:01 Dose: 650 mg Al Hydroxide/Mg Hydroxide (Magnesium Hydrox/Alum Hydrox 30 Ml Oral.Susp) 30 ml PO Q6H PRN PRN Reason: Heartburn/Nausea Aripiprazole (Aripiprazole 10 Mg Tablet) 10 mg PO DAILY@1730 [facility] Last Admin: 11/18/24 16:42 Dose: 10 mg Ascorbic Acid (Ascorbic Acid 500 Mg Tablet) 500 mg PO DAILY [facility] Last Admin: 11/19/24 08:02 Dose: 500 mg Clozapine (Clozapine 100 Mg Tablet) 200 mg PO DAILY@1999 [facility] Last Admin: 11/18/24 20:05 Dose: 200 mg Divalproex Sodium (Divalproex Sodium Sprinkles 125 Mg Cap.) 750 mg PO DAILY@1999 [facility] Last Admin: 11/18/24 20:05 Dose: 750 mg Enoxaparin Sodium (Enoxaparin Sodium 40 Mg/0.4 Ml Syringe) 40 mg SUBCUT Q24H [facility] Last Admin: 11/18/24 14:39 Dose: 40 mg Ferrous Sulfate (Ferrous Sulfate 324 Mg Tablet.) 324 mg PO DAILY [facility] Last Admin: 11/19/24 08:03 Dose: 324 mg Finasteride (Finasteride 5 Mg Tablet) 5 mg PO DAILY [facility] Last Admin: 11/19/24 08:02 Dose: 5 mg Ketamine HCl 45 mg/ Sodium (Chloride) 4.5 mls @ 4.5 mls/hr IV ONCE ONE Stop: 11/21/24 07:31 Lorazepam (Lorazepam 1 Mg Tablet) 1 mg PO BID PRN PRN Reason: anxiety Last Admin: 11/14/24 18:09 Dose: 1 mg Magnesium Hydroxide (Milk Of Magnesia 30 Ml Oral.Susp) 30 ml PO DAILY PRN PRN Reason: Constipation Magnesium Hydroxide (Milk Of Magnesia 30 Ml Oral.Susp) 5 ml PO BEDTIME [facility] Last Admin: 11/18/24 20:04 Dose: 5 ml Mirtazapine (Mirtazapine 15 Mg Tablet) 15 mg PO BEDTIME [facility] Last Admin: 11/18/24 20:05 Dose: 15 mg Olanzapine (Olanzapine Odt 10 Mg Tab.Rapdis) 5 mg TRANSLINGU BID PRN PRN Reason: agitation Polyethylene Glycol (Polyethylene Glycol 3350 17 Gm Powd.Pack) 17 gm PO DAILY [facility] Last Admin: 11/19/24 08:13 Dose: 17 gm Pramipexole Dihydrochloride (Pramipexole Di-Hcl 0.25 Mg Tablet) 0.5 mg PO TID [facility] Last Admin: 11/19/24 08:02 Dose: 0.5 mg Senna/Docusate Sodium (Sennosides/Docusate Sodium Tablet) 1 tab PO BID PRN PRN Reason: no BM for more than 3days Sertraline HCl (Sertraline Hcl 50 Mg Tablet) 50 mg PO DAILY [facility] Last Admin: 11/19/24 08:03 Dose: 50 mg Sodium Chloride (0.9 % Sodium Chloride Flush 10 Ml Syringe) 10 ml IVFLUSH QSHIFT [facility] Last Admin: 11/19/24 08:04 Dose: 10 ml Tamsulosin HCl (Tamsulosin Hcl 0.4 Mg Capsule) 0.8 mg PO BEDTIME [facility] Last Admin: 11/18/24 20:05 Dose: 0.8 mg Thiamine HCl (Thiamine Hcl 100 Mg Tablet) 100 mg PO DAILY [facility] Last Admin: 11/19/24 08:02 Dose: 100 mg Trazodone HCl (Trazodone Hcl 50 Mg Tablet) 50 mg PO BEDTIME PRN PRN Reason: Insomnia Last Admin: 11/06/24 21:45 Dose: 50 mg Allergies Allergies Allergy/AdvReac Type Severity Reaction Status Date / Time No Known Allergies (NKA) Allergy Unknown NONE Verified 10/27/24 19:26 Assessment & Plan Assessment & Plan (1) Catatonia: Status: Acute Code(s): F06.1 - Catatonic disorder due to known physiological condition (2) Schizoaffective disorder: Status: Acute Code(s): F25.9 - Schizoaffective disorder, unspecified (3) Essential hypertension: Status: Acute Code(s): I10 - Essential (primary) hypertension (4) Urinary retention with incomplete bladder emptying: Status: Acute Code(s): R33.9 - Retention of urine, unspecified Plan 59 year-old male with hx of schizoaffective disorder, hypertension, urinary retention, type 2 diabetes, depression recently discharged from [facility] on 10/08/2024 after prolonged admission due to treatment resistant catatonia. He had responded to Ketamine treatment, failed ECT with further complications including aspiration. He presented from skilled nursing with a change in mental status, he was found wandering in the streets soaked in urine. Depression with decompensation of schizophrenia, catatonia. Status post ketamine treatments, history of ECT with aspiration event Treatment per psych team. Urinary retention/BPH Continue Flomax 0.8mg, Finesteride Dove catheter in place. Follow up urology outpatient Dysphagia Tolerating diet, HOB up. OOB for meals. Mr. Tenorio is a 59 year-old male with hx of schizoaffective disorder recently discharged from [facility] on 10/08/2024 after prologued admission due to treatment resistant catatonia. He had responded to ketamine treatment, failed ECT with further complications including aspiration. He presents with catatonia again including mutism, waxy flexibility. He had one ketamine treatment since he was discharged from the hospital and only partial dose. He was recommended to do weekly ketamine treatments to prevent catatonia. reports he was taking medications as prescribed. Pending clozapine/norclozapine levels. PLAN 1. Admit to S[facility], Sect 12b, 1:1 unsteady gait 2. will check KUB for constipation as pt very poor historian but reports no BM in several days. Will also check bladder scan post void to rule out overflow incontinence due to urinary retention since reports increase incontinence in past few days. Note that he was straight cath while in the ED. 3. restart medications- abilify, sertraline, clozapine, low dose depakote 4. obtain collateral information 5. aftercare panning. 10/29/24 Pt to restart ketamine hcp in effect on 12 b at present 10/30/2024 Patient now on CV by healthcare proxy. Ketamine protocol ordered for the morning the that was previously quite helpful in treating patients catatonia has not responded previously well to lorazepam had only intermittent response to ECT here proxy does not wish ECT treatment and did respond to ketamine Medications continue that previously had been helpful on recent discharge 10/31/2024 Patient given 1st ketamine treatment had respondent previously to a series no change this point. Encourage food and fluids face anxious in appearance mostly mute minimally responsive catatonic symptoms continue. Continue Abilify mirtazapine sertraline Clozaril 150 mg Continue ketamine trial 11/01/2024 Patient remains generally unchanged. Continue clozapine sertraline mirtazapine Abilify 5 mg pramipexole 0.5 t.i.d. part of previous catatonia algorithm. Ketamine scheduled when possible had previously been quite helpful was previously on a 2 week 2 times a week schedule Urinary retention positive urine culture case discussed hospitalist service. Hospitalist consult called. Plan for antibiotics and Dove catheter and then trial without the catheter as possible check electrolytes in the morning may benefit from fluid replacement. Maintain head of the bed elevated supportive nursing care plan to reduce possible congestion 11/02: Continue current regimen and plans 11/03: Continue current plans and regimen Reason for continued inpatient stay 11/05/24 Pt with some imp more alert tolerating ketamine tx needs assist eating walking flat catatonic cont pts catatonia protocal 11/06/2024 Continue plan of care ketamine 11/07/2024 some mild improvement noted continue Monday ketamine treatment 11/07/2024 Patient continues to show improvement from initial catatonia more verbal try to evaluate mood and psychosis. Need clarity why patient was unable to complete outpatient ketamine 11/08/2024 Gradual improvement continues patient able to ambulate independently Dove catheter continues continue ketamine clozapine mirtazapine Abilify 11/09 no change in presentation; continue treatment plan 11/10 Been doing much better today, walking around, talking. He agrees and says he is doing all right.' patient remembers that it was hard for him to talk yesterday but unable to say why. 11/11/2024 Patient has had 2 days of marked improvement unable to explain behavior prior to admission refusing intravenous ketamine what exactly happened home and why he has negative connotations unable to give a clear history regarding this appears to be responding well to continue ketamine increase Depakote 11/12/2024 Will try discontinue Dove catheter and voiding trial. Monitor for cycling change patient appears to be shifting out of catatonia much orozco range of affect future oriented. Ketamine held today scheduled for 821. Continue Abilify clozapine Depakote try and determine lowest schedule for ketamine that maintains patient very little to go by to guide this decision 10/2024 Continue plan of care monitor for martha or confusion ketamine in the morning monitor response to discontinuing Dove 11/14/2024 Patient's some increased anxiety status post ketamine denies psychotic symptoms offered option of lorazepam PRN Will need to evaluate ketamine dosing 11/15/2024 Increase Abilify to 10 mg lower sertraline to 50 mg monitor response question patient overstimulated by antidepressants check Depakote level check ammonia 11/16/24 Continue plan of care check level 11/17/24 Continue to monitor 11/18/2024 Ketamine on hold gradually increase clozapine and Depakote check level 11/19/2024 Patient seems improved orozco affect calmer and more cooperative less irritable. Question adverse reaction to higher dose of sertraline now decreased responding to increased Depakote. Ketamine infusion scheduled for 11/21 Reason for continued inpatient stay Substantial Risk for: inability to function and rapid decompensation Time Spent With Patient Time: Total time managing care of this patient today ____ minutes.
[2024-11-19 20:00] VITALS: BP 104/60; PULSE 76; RESP 16; TEMP 36.1; O2SAT 96
[2024-11-19] MEDS: Milk of Magnesia 30 ML ORAL.SUSP 5 ML PO (20:21)
[2024-11-19] MEDS: Divalproex Sodium Sprinkles 125 MG CAP.DR.SPR 750 MG PO (20:22)
--- NOTE | 2024-11-20 07:47 | P.PNPSI_ITS ---
Subjective Subjective Date of Service: 11/20/24 Reason For Visit: Catatonia Subjective Notes: Conditional Voluntary Healthcare Proxy: Yes Interim History: Patient seen psychiatric follow-up. Patient's mood improved less reactive less irritable. Out in the milieu more eating well some engagement with others Medication Compliance: Yes Mental Status Exam Mental Status Exam Narrative: Patient seen in his room cooperative minimal psychomotor retardation. Much less latency of speech. Able to discuss his home life relationship with his family with whom he has not seen brother sister in many years. Mood described as okay some anxiety regarding tremor in his mouth and hands admits to periods of paranoia and hallucinations but denies currently no SI or HI better judgment improved impulse control Diagnostics Vital Signs (24Hr): Vital Signs - 24 hr 11/19/24 07:50 11/19/24 20:00 Temperature 98.1 F 97 F Pulse Rate 77 76 Respiratory Rate 18 16 Blood Pressure 133/64 104/60 Pulse Oximetry 99 96 Oxygen Delivery Method Room Air Room Air BMI result Body Mass Index 27.5 Labs 11/19/24 10:54 11/19/24 10:54 Labs: Laboratory Results - last 48 hr 11/18/24 11/18/24 11/19/24 18:43 18:43 10:54 WBC 4.6 L RBC 4.04 L Hgb 11.8 L Hct 36.4 L MCV 90.1 MCH 29.2 MCHC 32.4 RDW 13.4 Plt Count 159 L MPV 10.7 Immature Gran % (Auto) 0.6 H Neut % (Auto) 65.5 Lymph % (Auto) 25.3 [place] % (Auto) 8.4 Eos % (Auto) 0.0 Baso % (Auto) 0.2 Lymph # (Auto) 1.2 [place] # (Auto) 0.4 Eos # (Auto) 0.0 Baso # (Auto) 0.0 Abs Immat Gran (auto) 0.03 Absolute Neuts (auto) 3.8 3.0 Absolute Nucleated RBC 0.000 Nucleated RBC % (auto) 0.0 Sodium 142 143 Potassium 4.3 4.4 Chloride 105 104 Carbon Dioxide 28 31 H Anion Gap 13 12 BUN 39 H 35 H Creatinine 1.40 1.42 H Estim Creat Clear Calc 59.0 58.1 Estimated GFR 52 51 Random Glucose 133 H 84 Calcium 8.7 9.0 Total Bilirubin 0.2 0.3 AST 20 21 ALT 28 30 Alkaline Phosphatase 63 56 Ammonia Cancelled 43 39 Total Protein 6.5 7.0 Albumin 4.0 4.4 Valproic Acid 12.9 L 26.8 L Imaging Radiology Impressions: ITS Impressions KUB X-Ray 10/28/24 16:45 IMPRESSION: Again seen is a large amount of stool throughout the colon and rectum. Electronically signed by: Jose J Gonzalez MD 10/28/2024 05:20 PM EDT Medications Medications Current Medications Acetaminophen (Acetaminophen 325 Mg Tablet) 650 mg PO Q6H PRN PRN Reason: Headache/Pain, Scale 1-10 Last Admin: 11/01/24 20:01 Dose: 650 mg Al Hydroxide/Mg Hydroxide (Magnesium Hydrox/Alum Hydrox 30 Ml Oral.Susp) 30 ml PO Q6H PRN PRN Reason: Heartburn/Nausea Aripiprazole (Aripiprazole 10 Mg Tablet) 10 mg PO DAILY@1730 [facility] Last Admin: 11/19/24 16:42 Dose: 10 mg Ascorbic Acid (Ascorbic Acid 500 Mg Tablet) 500 mg PO DAILY [facility] Last Admin: 11/19/24 08:02 Dose: 500 mg Clozapine (Clozapine 100 Mg Tablet) 200 mg PO DAILY@1999 [facility] Last Admin: 11/19/24 20:23 Dose: 200 mg Divalproex Sodium (Divalproex Sodium Sprinkles 125 Mg Cap.) 750 mg PO DAILY@1999 [facility] Last Admin: 11/19/24 20:22 Dose: 750 mg Enoxaparin Sodium (Enoxaparin Sodium 40 Mg/0.4 Ml Syringe) 40 mg SUBCUT Q24H [facility] Last Admin: 11/19/24 15:15 Dose: Not Given Ferrous Sulfate (Ferrous Sulfate 324 Mg Tablet.) 324 mg PO DAILY [facility] Last Admin: 11/19/24 08:03 Dose: 324 mg Finasteride (Finasteride 5 Mg Tablet) 5 mg PO DAILY [facility] Last Admin: 11/19/24 08:02 Dose: 5 mg Ketamine HCl 45 mg/ Sodium (Chloride) 4.5 mls @ 4.5 mls/hr IV ONCE ONE Stop: 11/21/24 07:31 Lorazepam (Lorazepam 1 Mg Tablet) 1 mg PO BID PRN PRN Reason: anxiety Last Admin: 11/14/24 18:09 Dose: 1 mg Magnesium Hydroxide (Milk Of Magnesia 30 Ml Oral.Susp) 30 ml PO DAILY PRN PRN Reason: Constipation Magnesium Hydroxide (Milk Of Magnesia 30 Ml Oral.Susp) 5 ml PO BEDTIME [facility] Last Admin: 11/19/24 20:21 Dose: 5 ml Mirtazapine (Mirtazapine 15 Mg Tablet) 15 mg PO BEDTIME [facility] Last Admin: 11/19/24 20:23 Dose: 15 mg Olanzapine (Olanzapine Odt 10 Mg Tab.Rapdis) 5 mg TRANSLINGU BID PRN PRN Reason: agitation Polyethylene Glycol (Polyethylene Glycol 3350 17 Gm Powd.Pack) 17 gm PO DAILY [facility] Last Admin: 11/19/24 08:13 Dose: 17 gm Pramipexole Dihydrochloride (Pramipexole Di-Hcl 0.25 Mg Tablet) 0.5 mg PO TID [facility] Last Admin: 11/19/24 20:23 Dose: 0.5 mg Senna/Docusate Sodium (Sennosides/Docusate Sodium Tablet) 1 tab PO BID PRN PRN Reason: no BM for more than 3days Sertraline HCl (Sertraline Hcl 50 Mg Tablet) 50 mg PO DAILY [facility] Last Admin: 11/19/24 08:03 Dose: 50 mg Sodium Chloride (0.9 % Sodium Chloride Flush 10 Ml Syringe) [facility] Last Admin: 11/19/24 23:17 Dose: 10 ml Tamsulosin HCl (Tamsulosin Hcl 0.4 Mg Capsule) 0.8 mg PO BEDTIME [facility] Last Admin: 11/19/24 20:23 Dose: 0.8 mg Thiamine HCl (Thiamine Hcl 100 Mg Tablet) 100 mg PO DAILY [facility] Last Admin: 11/19/24 08:02 Dose: 100 mg Trazodone HCl (Trazodone Hcl 50 Mg Tablet) 50 mg PO BEDTIME PRN PRN Reason: Insomnia Last Admin: 11/06/24 21:45 Dose: 50 mg Allergies Allergies Allergy/AdvReac Type Severity Reaction Status Date / Time No Known Allergies (NKA) Allergy Unknown NONE Verified 10/27/24 19:26 Assessment & Plan Assessment & Plan (1) Catatonia: Status: Acute Code(s): F06.1 - Catatonic disorder due to known physiological condition (2) Schizoaffective disorder: Status: Acute Code(s): F25.9 - Schizoaffective disorder, unspecified (3) Essential hypertension: Status: Acute Code(s): I10 - Essential (primary) hypertension (4) Urinary retention with incomplete bladder emptying: Status: Acute Code(s): R33.9 - Retention of urine, unspecified Plan 59 year-old male with hx of schizoaffective disorder, hypertension, urinary retention, type 2 diabetes, depression recently discharged from [facility] on 10/08/2024 after prolonged admission due to treatment resistant catatonia. He had responded to Ketamine treatment, failed ECT with further complications including aspiration. He presented from [facility] with a change in mental status, he was found wandering in the streets soaked in urine. Depression with decompensation of schizophrenia, catatonia. Status post ketamine treatments, history of ECT with aspiration event Treatment per psych team. Urinary retention/BPH Continue Flomax 0.8mg, Finesteride Dove catheter in place. Follow up urology outpatient Dysphagia Tolerating diet, HOB up. OOB for meals. Mr. 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 He had responded to ketamine treatment, failed ECT with further complications including aspiration. He presents with catatonia again including mutism, waxy flexibility. He had one ketamine treatment since he was discharged from the hospital and only partial dose. He was recommended to do weekly ketamine treatments to prevent catatonia. reports he was taking medications as prescribed. Pending clozapine/norclozapine levels. PLAN 1. Admit to S[facility], Sect 12b, 1:1 unsteady gait 2. will check KUB for constipation as pt very poor historian but reports no BM in several days. Will also check bladder scan post void to rule out overflow incontinence due to urinary retention since reports increase incontinence in past few days. Note that he was straight cath while in the ED. 3. restart medications- abilify, sertraline, clozapine, low dose depakote 4. obtain collateral information 5. aftercare panning. 10/29/24 Pt to restart ketamine hcp in effect on 12 b at present 10/30/2024 Patient now on CV by healthcare proxy. Ketamine protocol ordered for the morning the that was previously quite helpful in treating patients catatonia has not responded previously well to lorazepam had only intermittent response to ECT here proxy does not wish ECT treatment and did respond to ketamine Medications continue that previously had been helpful on recent discharge 10/31/2024 Patient given 1st ketamine treatment had respondent previously to a series no change this point. Encourage food and fluids face anxious in appearance mostly mute minimally responsive catatonic symptoms continue. Continue Abilify mirtazapine sertraline Clozaril 150 mg Continue ketamine trial 11/01/2024 Patient remains generally unchanged. Continue clozapine sertraline mirtazapine Abilify 5 mg pramipexole 0.5 t.i.d. part of previous catatonia algorithm. Ketamine scheduled when possible had previously been quite helpful was previously on a 2 week 2 times a week schedule Urinary retention positive urine culture case discussed hospitalist service. Hospitalist consult called. Plan for antibiotics and Dove catheter and then trial without the catheter as possible check electrolytes in the morning may benefit from fluid replacement. Maintain head of the bed elevated supportive nursing care plan to reduce possible congestion 11/02: Continue current regimen and plans 11/03: Continue current plans and regimen Reason for continued inpatient stay 11/05/24 Pt with some imp more alert tolerating ketamine tx needs assist eating walking flat catatonic cont pts catatonia protocal 11/06/2024 Continue plan of care ketamine 11/07/2024 some mild improvement noted continue Monday ketamine treatment 11/07/2024 Patient continues to show improvement from initial catatonia more verbal try to evaluate mood and psychosis. Need clarity why patient was unable to complete outpatient ketamine 11/08/2024 Gradual improvement continues patient able to ambulate independently Dove catheter continues continue ketamine clozapine mirtazapine Abilify 11/09 no change in presentation; continue treatment plan 11/10 Been doing much better today, walking around, talking. He agrees and says he is doing all right.' patient remembers that it was hard for him to talk yesterday but unable to say why. 11/11/2024 Patient has had 2 days of marked improvement unable to explain behavior prior to admission refusing intravenous ketamine what exactly happened home and why he has negative connotations unable to give a clear history regarding this appears to be responding well to continue ketamine increase Depakote 11/12/2024 Will try discontinue Dove catheter and voiding trial. Monitor for cycling change patient appears to be shifting out of catatonia much orozco range of affect future oriented. Ketamine held today scheduled for 821. Continue Abilify clozapine Depakote try and determine lowest schedule for ketamine that maintains patient very little to go by to guide this decision 10/2024 Continue plan of care monitor for martha or confusion ketamine in the morning monitor response to discontinuing Dove 11/14/2024 Patient's some increased anxiety status post ketamine denies psychotic symptoms offered option of lorazepam PRN Will need to evaluate ketamine dosing 11/15/2024 Increase Abilify to 10 mg lower sertraline to 50 mg monitor response question patient overstimulated by antidepressants check Depakote level check ammonia 11/16/24 Continue plan of care check level 11/17/24 Continue to monitor 11/18/2024 Ketamine on hold gradually increase clozapine and Depakote check level 11/19/2024 Patient seems improved orozco affect calmer and more cooperative less irritable. Question adverse reaction to higher dose of sertraline now decreased responding to increased Depakote. Ketamine infusion scheduled for 11/2111/20/2024 Patient continues on prior algorithm for catatonia which includes Abilify clozapine mirtazapine clozapine. He is also on Depakote Depakote level 28.6 ammonia level unremarkable could decrease Depakote monitor response to ketamine see if we can try and discontinue currently 1 time a week monitor for any adverse effect Patient educated on: medication risk/benefits Informed Consent: further education needed Reason for continued inpatient stay Substantial Risk for: inability to function, rapid decompensation and med/psych decompensation Time Spent With Patient Time: Total time managing care of this patient today _38___ minutes.
[2024-11-20 08:00] VITALS: BP 132/63; PULSE 73; RESP 18; TEMP 36.6; O2SAT 97
[2024-11-20] MEDS: Ferrous Sulfate 324 MG TABLET.DR PO (08:16)
[2024-11-20] MEDS: 0.9 % Sodium Chloride Flush 10 ML SYRINGE IVFLUSH ×2 (08:17→15:39)
[2024-11-20 20:00] VITALS: BP 137/67; PULSE 68; RESP 16; TEMP 36.3; O2SAT 100
[2024-11-20] MEDS: Milk of Magnesia 30 ML ORAL.SUSP 5 ML PO (20:12)
[2024-11-20] MEDS: Divalproex Sodium Sprinkles 125 MG CAP.DR.SPR 750 MG PO (20:13)
[2024-11-21] VITALS (11 sets, daily range): BP systolic 114–131; BP diastolic 62–73; PULSE 60–74; RESP 16–18; TEMP 36.4–36.9; O2SAT 94–99; BMI 28.8
[2024-11-21] MEDS: 0.9 % Sodium Chloride Flush 10 ML SYRINGE IVFLUSH ×2 (00:15→16:02)
--- NOTE | 2024-11-21 11:37 | P.PNPSI_ITS ---
Subjective Subjective Date of Service: 11/21/24 Reason For Visit: Catatonia Subjective Notes: Conditional Voluntary Healthcare Proxy: Yes Interim History: Pt seen in f/u has completed ketamine infusion doing ok after tx, eating drinking somewhat social with with staff. Medication Compliance: Yes Mental Status Exam Mental Status Exam Narrative: Patient seen in his room cooperative has resting tremor Much less latency of speech. Able to discuss his home life relationship with his family with whom he has not seen brother sister in many years. Mood described as okay some anxiety regarding tremor in his mouth and hands admits to periods of paranoia and hallucinations but denies currently no SI or HI better judgment improved impulse control he is concerned with tremorno current diaz Diagnostics Vital Signs (24Hr): Vital Signs - 24 hr 11/20/24 20:00 11/21/24 07:43 11/21/24 08:25 Temperature 97.3 F 97.5 F Pulse Rate 68 64 60 Respiratory Rate 16 16 16 Blood Pressure 137/67 114/63 117/67 Pulse Oximetry 100 97 98 Oxygen Delivery Method Room Air Room Air Room Air 11/21/24 08:40 11/21/24 08:55 11/21/24 09:10 Temperature Pulse Rate 61 65 66 Respiratory Rate 16 16 16 Blood Pressure 120/64 128/73 131/71 Pulse Oximetry 98 98 98 Oxygen Delivery Method Room Air Room Air Room Air 11/21/24 09:25 11/21/24 09:40 11/21/24 09:55 Temperature 97.9 F Pulse Rate 67 72 65 Respiratory Rate 16 16 16 Blood Pressure 120/66 128/62 123/66 Pulse Oximetry 99 98 98 Oxygen Delivery Method Room Air Room Air Room Air 11/21/24 10:10 11/21/24 10:25 Temperature 98.5 F Pulse Rate 63 66 Respiratory Rate 16 16 Blood Pressure 124/64 114/64 Pulse Oximetry 98 98 Oxygen Delivery Method Room Air Room Air BMI result Body Mass Index 27.5 Labs 11/19/24 10:54 11/19/24 10:54 Imaging Radiology Impressions: ITS Impressions KUB X-Ray 10/28/24 16:45 IMPRESSION: Again seen is a large amount of stool throughout the colon and rectum. Electronically signed by: Jose J Gonzalez MD 10/28/2024 05:20 PM EDT Medications Medications Current Medications Acetaminophen (Acetaminophen 325 Mg Tablet) 650 mg PO Q6H PRN PRN Reason: Headache/Pain, Scale 1-10 Last Admin: 11/01/24 20:01 Dose: 650 mg Al Hydroxide/Mg Hydroxide (Magnesium Hydrox/Alum Hydrox 30 Ml Oral.Susp) 30 ml PO Q6H PRN PRN Reason: Heartburn/Nausea Aripiprazole (Aripiprazole 10 Mg Tablet) 10 mg PO DAILY@1730 [facility] Last Admin: 11/20/24 16:20 Dose: 10 mg Ascorbic Acid (Ascorbic Acid 500 Mg Tablet) 500 mg PO DAILY [facility] Last Admin: 11/20/24 08:16 Dose: 500 mg Clozapine (Clozapine 100 Mg Tablet) 200 mg PO DAILY@1999 [facility] Last Admin: 11/20/24 20:13 Dose: 200 mg Divalproex Sodium (Divalproex Sodium Sprinkles 125 Mg Cap.Dr.Spr) 750 mg PO DAILY@1999 [facility] Last Admin: 11/20/24 20:13 Dose: 750 mg Ferrous Sulfate (Ferrous Sulfate 324 Mg Tablet.) 324 mg PO DAILY [facility] Last Admin: 11/20/24 08:16 Dose: 324 mg Finasteride (Finasteride 5 Mg Tablet) 5 mg PO DAILY [facility] Last Admin: 11/20/24 08:16 Dose: 5 mg Lorazepam (Lorazepam 1 Mg Tablet) 1 mg PO BID PRN PRN Reason: anxiety Last Admin: 11/14/24 18:09 Dose: 1 mg Magnesium Hydroxide (Milk Of Magnesia 30 Ml Oral.Susp) 30 ml PO DAILY PRN PRN Reason: Constipation Magnesium Hydroxide (Milk Of Magnesia 30 Ml Oral.Susp) 5 ml PO BEDTIME [facility] Last Admin: 11/20/24 20:12 Dose: 5 ml Mirtazapine (Mirtazapine 15 Mg Tablet) 15 mg PO BEDTIME [facility] Last Admin: 11/20/24 20:13 Dose: 15 mg Olanzapine (Olanzapine Odt 10 Mg Tab.Rapdis) 5 mg TRANSLINGU BID PRN PRN Reason: agitation Polyethylene Glycol (Polyethylene Glycol 3350 17 Gm Powd.Pack) 17 gm PO DAILY [facility] Last Admin: 11/20/24 08:16 Dose: 17 gm Pramipexole Dihydrochloride (Pramipexole Di-Hcl 0.25 Mg Tablet) 0.5 mg PO TID [facility] Last Admin: 11/20/24 20:13 Dose: 0.5 mg Senna/Docusate Sodium (Sennosides/Docusate Sodium Tablet) 1 tab PO BID PRN PRN Reason: no BM for more than 3days Sertraline HCl (Sertraline Hcl 50 Mg Tablet) 50 mg PO DAILY [facility] Last Admin: 11/20/24 08:16 Dose: 50 mg Sodium Chloride (0.9 % Sodium Chloride Flush 10 Ml Syringe) 10 ml IVFLUSH QSHIFT [facility] Last Admin: 11/21/24 00:15 Dose: 10 ml Tamsulosin HCl (Tamsulosin Hcl 0.4 Mg Capsule) 0.8 mg PO BEDTIME [facility] Last Admin: 11/20/24 20:13 Dose: 0.8 mg Thiamine HCl (Thiamine Hcl 100 Mg Tablet) 100 mg PO DAILY [facility] Last Admin: 11/20/24 08:16 Dose: 100 mg Trazodone HCl (Trazodone Hcl 50 Mg Tablet) 50 mg PO BEDTIME PRN PRN Reason: Insomnia Last Admin: 11/06/24 21:45 Dose: 50 mg Allergies Allergies Allergy/AdvReac Type Severity Reaction Status Date / Time No Known Allergies (NKA) Allergy Unknown NONE Verified 10/27/24 19:26 Assessment & Plan Assessment & Plan (1) Catatonia: Status: Acute Code(s): F06.1 - Catatonic disorder due to known physiological condition (2) Schizoaffective disorder: Status: Acute Code(s): F25.9 - Schizoaffective disorder, unspecified (3) Essential hypertension: Status: Acute Code(s): I10 - Essential (primary) hypertension (4) Urinary retention with incomplete bladder emptying: Status: Acute Code(s): R33.9 - Retention of urine, unspecified Plan 59 year-old male with hx of schizoaffective disorder, hypertension, urinary retention, type 2 diabetes, depression recently discharged from on 10/08/2024 after prolonged admission due to treatment resistant catatonia. He had responded to Ketamine treatment, failed ECT with further complications including aspiration. [facility] a change in [facility] status, he was found wandering in the streets soaked in urine. Depression with decompensation of schizophrenia, catatonia. Status post ketamine treatments, history of ECT with aspiration event Treatment per psych team. Urinary retention/BPH Continue Flomax 0.8mg, Finesteride Dove catheter in place. Follow up urology outpatient Dysphagia Tolerating diet, HOB up. OOB for meals. Mr. 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 He had responded to ketamine treatment, failed ECT with further complications including aspiration. He presents with catatonia again including mutism, waxy flexibility. He had one ketamine treatment since he was discharged from the hospital and only partial dose. He was recommended to do weekly ketamine treatments to prevent catatonia. reports he was taking medications as prescribed. Pending clozapine/norclozapine levels. PLAN 1. Admit to , Sect 12b, 1:1 unsteady gait 2. will check KUB for constipation as pt very poor historian but reports no BM in several days. Will also check bladder scan post void to rule out overflow incontinence due to urinary retention since reports increase incontinence in past few days. Note that he was straight cath while in the ED. 3. restart medications- abilify, sertraline, clozapine, low dose depakote 4. obtain collateral information 5. aftercare panning. 10/29/24 Pt to restart ketamine hcp in effect on 12 b at present 10/30/2024 Patient now on CV by healthcare proxy. Ketamine protocol ordered for the morning the that was previously quite helpful in treating patients catatonia has not responded previously well to lorazepam had only intermittent response to ECT here proxy does not wish ECT treatment and did respond to ketamine Medications continue that previously had been helpful on recent discharge 10/31/2024 Patient given 1st ketamine treatment had respondent previously to a series no change this point. Encourage food and fluids face anxious in appearance mostly mute minimally responsive catatonic symptoms continue. Continue Abilify mirtazapine sertraline Clozaril 150 mg Continue ketamine trial 11/01/2024 Patient remains generally unchanged. Continue clozapine sertraline mirtazapine Abilify 5 mg pramipexole 0.5 t.i.d. part of previous catatonia algorithm. Ketamine scheduled when possible had previously been quite helpful was previously on a 2 week 2 times a week schedule Urinary retention positive urine culture case discussed hospitalist service. Hospitalist consult called. Plan for antibiotics and Dove catheter and then trial without the catheter as possible check electrolytes in the morning may benefit from fluid replacement. Maintain head of the bed elevated supportive nursing care plan to reduce possible congestion 11/02: Continue current regimen and plans 11/03: Continue current plans and regimen Reason for continued inpatient stay 11/05/24 Pt with some imp more alert tolerating ketamine tx needs assist eating walking flat catatonic cont pts catatonia protocal 11/06/2024 Continue plan of care ketamine 11/07/2024 some mild improvement noted continue Monday ketamine treatment 11/07/2024 Patient continues to show improvement from initial catatonia more verbal try to evaluate mood and psychosis. Need clarity why patient was unable to complete outpatient ketamine 11/08/2024 Gradual improvement continues patient able to ambulate independently Dove catheter continues continue ketamine clozapine mirtazapine Abilify 11/09 no change in presentation; continue treatment plan 11/10 Been doing much better today, walking around, talking. He agrees and says he is doing all right.' patient remembers that it was hard for him to talk yesterday but unable to say why. 11/11/2024 Patient has had 2 days of marked improvement unable to explain behavior prior to admission refusing intravenous ketamine what exactly happened home and why he has negative connotations unable to give a clear history regarding this appears to be responding well to continue ketamine increase Depakote 11/12/2024 Will try discontinue Dove catheter and voiding trial. Monitor for cycling change patient appears to be shifting out of catatonia much orozco range of affect future oriented. Ketamine held today scheduled for 821. Continue Abilify clozapine Depakote try and determine lowest schedule for ketamine that maintains patient very little to go by to guide this decision 10/2024 Continue plan of care monitor for martha or confusion ketamine in the morning monitor response to discontinuing Dove 11/14/2024 Patient's some increased anxiety status post ketamine denies psychotic symptoms offered option of lorazepam PRN Will need to evaluate ketamine dosing 11/15/2024 Increase Abilify to 10 mg lower sertraline to 50 mg monitor response question patient overstimulated by antidepressants check Depakote level check ammonia 11/16/24 Continue plan of care check level 11/17/24 Continue to monitor 11/18/2024 Ketamine on hold gradually increase clozapine and Depakote check level 11/19/2024 Patient seems improved orozco affect calmer and more cooperative less irritable. Question adverse reaction to higher dose of sertraline now decreased responding to increased Depakote. Ketamine infusion scheduled for 11/2111/20/2024 Patient continues on prior algorithm for catatonia which includes Abilify clozapine mirtazapine clozapine. He is also on Depakote Depakote level 28.6 ammonia level unremarkable could decrease Depakote monitor response to ketamine see if we can try and discontinue currently 1 time a week monitor for any adverse effect 11/21/24 dep level low can increase ammonia ok can try and see if ketamine could be held Reason for continued inpatient stay Substantial Risk for: inability to function, rapid decompensation and med/psych decompensation Time Spent With Patient Time: Total time managing care of this patient today ____ minutes.
[2024-11-21] MEDS: Ferrous Sulfate 324 MG TABLET.DR PO (11:45)
[2024-11-21] MEDS: Divalproex Sodium Sprinkles 125 MG CAP.DR.SPR 1000 MG PO (21:29)
[2024-11-21] MEDS: Milk of Magnesia 30 ML ORAL.SUSP 5 ML PO (21:33)
[2024-11-22 08:30] VITALS: BP 138/65; PULSE 89; RESP 20; TEMP 37.6; O2SAT 99
[2024-11-22] MEDS: Ferrous Sulfate 324 MG TABLET.DR PO (08:31)
[2024-11-22] MEDS: 0.9 % Sodium Chloride Flush 10 ML SYRINGE IVFLUSH ×2 (09:20→16:26)
--- NOTE | 2024-11-22 15:17 | HO.PSYCHPN ---
Subjective Subjective Date of Service: 11/22/24 Reason For Visit: Catatonia Subjective Notes: Conditional Voluntary Healthcare Proxy: Yes Interim History: pt remains more verbal c/o tremor mouth and r hand Medication Compliance: Yes Mental Status Exam Mental Status Exam Narrative: Patient seen in [facility] cooperative has resting tremor Much less latency of speech. some concern about tremor. thoughts linear, logical, non-psychotic content and process. affect blunted. mood improved. no SI/HI/AVH expressed. Diagnostics Vital Signs (24Hr): Vital Signs - 24 hr 11/21/24 20:00 11/22/24 08:30 Temperature 98.2 F 99.7 F Pulse Rate 74 89 Respiratory Rate 18 20 Blood Pressure 120/65 138/65 Pulse Oximetry 94 99 Oxygen Delivery Method Room Air Room Air BMI result Body Mass Index 28.8 Labs 11/19/24 10:54 11/19/24 10:54 Imaging Radiology Impressions: ITS Impressions KUB X-Ray 10/28/24 16:45 IMPRESSION: Again seen is a large amount of stool throughout the colon and rectum. Electronically signed by: Jose J Gonzalez MD 10/28/2024 05:20 PM EDT RP Medications Medications Current Medications Acetaminophen (Acetaminophen 325 Mg Tablet) 650 mg PO Q6H PRN PRN Reason: Headache/Pain, Scale 1-10 Last Admin: 11/01/24 20:01 Dose: 650 mg Al Hydroxide/Mg Hydroxide (Magnesium Hydrox/Alum Hydrox 30 Ml Oral.Susp) 30 ml PO Q6H PRN PRN Reason: Heartburn/Nausea Amantadine HCl (Amantadine Hcl 100 Mg Capsule) 50 mg PO BID [facility] Aripiprazole (Aripiprazole 10 Mg Tablet) 10 mg PO DAILY@1730 [facility] Last Admin: 11/21/24 17:00 Dose: 10 mg Ascorbic Acid (Ascorbic Acid 500 Mg Tablet) 500 mg PO DAILY [facility] Last Admin: 11/22/24 08:31 Dose: 500 mg Clozapine (Clozapine 100 Mg Tablet) 200 mg PO DAILY@1999 [facility] Last Admin: 11/21/24 21:28 Dose: 200 mg Divalproex Sodium (Divalproex Sodium Sprinkles 125 Mg Cap.) 1,000 mg PO DAILY@1999 [facility] Last Admin: 11/21/24 21:29 Dose: 1,000 mg Ferrous Sulfate (Ferrous Sulfate 324 Mg Tablet.) 324 mg PO DAILY [facility] Last Admin: 11/22/24 08:31 Dose: 324 mg Finasteride (Finasteride 5 Mg Tablet) 5 mg PO DAILY [facility] Last Admin: 11/22/24 08:33 Dose: 5 mg Lorazepam (Lorazepam 1 Mg Tablet) 1 mg PO BID PRN PRN Reason: anxiety Last Admin: 11/14/24 18:09 Dose: 1 mg Magnesium Hydroxide (Milk Of Magnesia 30 Ml Oral.Susp) 30 ml PO DAILY PRN PRN Reason: Constipation Magnesium Hydroxide (Milk Of Magnesia 30 Ml Oral.Susp) 5 ml PO BEDTIME [facility] Last Admin: 11/21/24 21:33 Dose: 5 ml Mirtazapine (Mirtazapine 15 Mg Tablet) 15 mg PO BEDTIME [facility] Last Admin: 11/21/24 21:29 Dose: 15 mg Olanzapine (Olanzapine Odt 10 Mg Tab.Rapdis) 5 mg TRANSLINGU BID PRN PRN Reason: agitation Polyethylene Glycol (Polyethylene Glycol 3350 17 Gm Powd.Pack) 17 gm PO DAILY [facility] Last Admin: 11/22/24 08:34 Dose: 17 gm Pramipexole Dihydrochloride (Pramipexole Di-Hcl 0.25 Mg Tablet) 0.5 mg PO TID [facility] Last Admin: 11/22/24 15:03 Dose: 0.5 mg Senna/Docusate Sodium (Sennosides/Docusate Sodium Tablet) 1 tab PO BID PRN PRN Reason: no BM for more than 3days Sertraline HCl (Sertraline Hcl 50 Mg Tablet) 50 mg PO DAILY [facility] Last Admin: 11/22/24 08:32 Dose: 50 mg Sodium Chloride (0.9 % Sodium Chloride Flush 10 Ml Syringe) [facility] Last Admin: 11/22/24 09:20 Dose: 10 ml Tamsulosin HCl (Tamsulosin Hcl 0.4 Mg Capsule) 0.8 mg PO BEDTIME [facility] Last Admin: 11/21/24 21:30 Dose: 0.8 mg Thiamine HCl (Thiamine Hcl 100 Mg Tablet) 100 mg PO DAILY [facility] Last Admin: 11/22/24 08:33 Dose: 100 mg Trazodone HCl (Trazodone Hcl 50 Mg Tablet) 50 mg PO BEDTIME PRN PRN Reason: Insomnia Last Admin: 11/06/24 21:45 Dose: 50 mg Allergies Allergies Allergy/AdvReac Type Severity Reaction Status Date / Time No Known Allergies (NKA) Allergy Unknown NONE Verified 10/27/24 19:26 Assessment & Plan Assessment & Plan (1) Catatonia: Status: Acute Code(s): F06.1 - Catatonic disorder due to known physiological condition (2) Schizoaffective disorder: Status: Acute Code(s): F25.9 - Schizoaffective disorder, unspecified (3) Essential hypertension: Status: Acute Code(s): I10 - Essential (primary) hypertension (4) Urinary retention with incomplete bladder emptying: Status: Acute Code(s): R33.9 - Retention of urine, unspecified Plan 59 year-old male with hx of schizoaffective disorder, hypertension, urinary retention, type 2 diabetes, depression recently discharged from on 10/08/2024 after prolonged admission due to treatment resistant catatonia. He had responded to Ketamine treatment, failed ECT with further complications including aspiration. He presented from residential with a change in mental status, he was found wandering in the streets soaked in urine. Depression with decompensation of schizophrenia, catatonia. Status post ketamine treatments, history of ECT with aspiration event Treatment per psych team. Urinary retention/BPH Continue Flomax 0.8mg, Finesteride Dove catheter in place. Follow up urology outpatient Dysphagia Tolerating diet, HOB up. OOB for meals. Mr. 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 He had responded to ketamine treatment, failed ECT with further complications including aspiration. He presents with catatonia again including mutism, waxy flexibility. He had one ketamine treatment since he was discharged from the hospital and only partial dose. He was recommended to do weekly ketamine treatments to prevent catatonia. reports he was taking medications as prescribed. Pending clozapine/norclozapine levels. PLAN 1. Admit to S1, Sect 12b, 1:1 unsteady gait 2. will check KUB for constipation as pt very poor historian but reports no BM in several days. Will also check bladder scan post void to rule out overflow incontinence due to urinary retention since GH reports increase incontinence in past few days. Note that he was straight cath while in the ED. 3. restart medications- abilify, sertraline, clozapine, low dose depakote 4. obtain collateral information 5. aftercare panning. 10/29/24 Pt to restart ketamine hcp in effect on 12 b at present 10/30/2024 Patient now on CV by healthcare proxy. Ketamine protocol ordered for the morning the that was previously quite helpful in treating patients catatonia has not responded previously well to lorazepam had only intermittent response to ECT here proxy does not wish ECT treatment and did respond to ketamine Medications continue that previously had been helpful on recent discharge 10/31/2024 Patient given 1st ketamine treatment had respondent previously to a series no change this point. Encourage food and fluids face anxious in appearance mostly mute minimally responsive catatonic symptoms continue. Continue Abilify mirtazapine sertraline Clozaril 150 mg Continue ketamine trial 11/01/2024 Patient remains generally unchanged. Continue clozapine sertraline mirtazapine Abilify 5 mg pramipexole 0.5 t.i.d. part of previous catatonia algorithm. Ketamine scheduled when possible had previously been quite helpful was previously on a 2 week 2 times a week schedule Urinary retention positive urine culture case discussed hospitalist service. Hospitalist consult called. Plan for antibiotics and Dove catheter and then trial without the catheter as possible check electrolytes in the morning may benefit from fluid replacement. Maintain head of the bed elevated supportive nursing care plan to reduce possible congestion 11/02: Continue current regimen and plans 11/03: Continue current plans and regimen Reason for continued inpatient stay 11/05/24 Pt with some imp more alert tolerating ketamine tx needs assist eating walking flat catatonic cont pts catatonia protocal 11/06/2024 Continue plan of care ketamine 11/07/2024 some mild improvement noted continue Monday ketamine treatment 11/07/2024 Patient continues to show improvement from initial catatonia more verbal try to evaluate mood and psychosis. Need clarity why patient was unable to complete outpatient ketamine 11/08/2024 Gradual improvement continues patient able to ambulate independently Dove catheter continues continue ketamine clozapine mirtazapine Abilify 11/09 no change in presentation; continue treatment plan 11/10 Been doing much better today, walking around, talking. He agrees and says he is doing all right.' patient remembers that it was hard for him to talk yesterday but unable to say why. 11/11/2024 Patient has had 2 days of marked improvement unable to explain behavior prior to admission refusing intravenous ketamine what exactly happened home and why he has negative connotations unable to give a clear history regarding this appears to be responding well to continue ketamine increase Depakote 11/12/2024 Will try discontinue Dove catheter and voiding trial. Monitor for cycling change patient appears to be shifting out of catatonia much orozco range of affect future oriented. Ketamine held today scheduled for 821. Continue Abilify clozapine Depakote try and determine lowest schedule for ketamine that maintains patient very little to go by to guide this decision 10/2024 Continue plan of care monitor for martha or confusion ketamine in the morning monitor response to discontinuing Dove 11/14/2024 Patient's some increased anxiety status post ketamine denies psychotic symptoms offered option of lorazepam PRN Will need to evaluate ketamine dosing 11/15/2024 Increase Abilify to 10 mg lower sertraline to 50 mg monitor response question patient overstimulated by antidepressants check Depakote level check ammonia 11/16/24 Continue plan of care check level 11/17/24 Continue to monitor 11/18/2024 Ketamine on hold gradually increase clozapine and Depakote check level 11/19/2024 Patient seems improved orozco affect calmer and more cooperative less irritable. Question adverse reaction to higher dose of sertraline now decreased responding to increased Depakote. Ketamine infusion scheduled for 11/2111/20/2024 Patient continues on prior algorithm for catatonia which includes Abilify clozapine mirtazapine clozapine. He is also on Depakote Depakote level 28.6 ammonia level unremarkable could decrease Depakote monitor response to ketamine see if we can try and discontinue currently 1 time a week monitor for any adverse effect 11/21/24 dep level low can increase ammonia ok can try and see if ketamine could be held 11/22/24 will try amantadine for eps monitor response Informed Consent: further education needed Reason for continued inpatient stay Substantial Risk for: inability to function and rapid decompensation Time Spent With Patient Time: Total time managing care of this patient today ____ minutes.
[2024-11-22 20:00] VITALS: BP 116/60; PULSE 82; RESP 16; TEMP 36.3; O2SAT 96
[2024-11-22] MEDS: Divalproex Sodium Sprinkles 125 MG CAP.DR.SPR 1000 MG PO (21:03)
[2024-11-22] MEDS: Milk of Magnesia 30 ML ORAL.SUSP 5 ML PO (21:04)
[2024-11-23] MEDS: 0.9 % Sodium Chloride Flush 10 ML SYRINGE IVFLUSH ×3 (01:36→16:18)
[2024-11-23 08:26] VITALS: BP 120/58; PULSE 82; RESP 20; TEMP 36.4; O2SAT 97
[2024-11-23] MEDS: Ferrous Sulfate 324 MG TABLET.DR PO (08:29)
--- NOTE | 2024-11-23 09:05 | HO.PSYCHPN ---
Subjective Subjective Date of Service: 11/23/24 Reason For Visit: Catatonia Interim History: Patient has been getting IV Ketamine treatments. He feels they are helpful. He has been somewhat more communicative. Less catatonic. No behavioral concerns. Review of Systems Review of Systems denies Yes Unobtainable due to mental status Mental Status Exam Mental Status Exam Narrative: Patient seen in his room cooperative has resting tremor Much less latency of speech. Able to discuss his home life relationship with his family with whom he has not seen brother sister in many years. Mood described as okay some anxiety regarding tremor in his mouth and hands admits to periods of paranoia and hallucinations but denies currently no SI or HI better judgment improved impulse control he is concerned with tremorno current diaz Patient Appearance: Appropriate Patient Orientation: Person and Place Level of Consciousness: Alert Patient Behavior: Talkative and Good Eye Contact Mood Description: Calm, Appropriate and Relaxed Affect Description: Blunted Ability to Follow Directions: Fair Speech Pattern: Spontaneous Speech Memory Description: Episodic Impaired Diagnostics Vital Signs (24Hr): Vital Signs - 24 hr 11/22/24 20:00 11/23/24 08:26 Temperature 97.3 F Pulse Rate 82 82 Respiratory Rate 16 20 Blood Pressure 116/60 120/58 L Pulse Oximetry 96 97 Oxygen Delivery Method Room Air Room Air BMI result Body Mass Index 28.8 Labs 11/19/24 10:54 11/19/24 10:54 Imaging Radiology Impressions: ITS Impressions KUB X-Ray 10/28/24 16:45 IMPRESSION: Again seen is a large amount of stool throughout the colon and rectum. Electronically signed by: Jose J Gonzalez MD 10/28/2024 05:20 PM EDT Medications Medications Current Medications Acetaminophen (Acetaminophen 325 Mg Tablet) 650 mg PO Q6H PRN PRN Reason: Headache/Pain, Scale 1-10 Last Admin: 11/01/24 20:01 Dose: 650 mg Al Hydroxide/Mg Hydroxide (Magnesium Hydrox/Alum Hydrox 30 Ml Oral.Susp) 30 ml PO Q6H PRN PRN Reason: Heartburn/Nausea Aripiprazole (Aripiprazole 10 Mg Tablet) 10 mg PO DAILY@1730 [facility] Last Admin: 11/22/24 17:00 Dose: 10 mg Ascorbic Acid (Ascorbic Acid 500 Mg Tablet) 500 mg PO DAILY [facility] Last Admin: 11/23/24 08:29 Dose: 500 mg Clozapine (Clozapine 100 Mg Tablet) 200 mg PO DAILY@1999 [facility] Last Admin: 11/22/24 21:02 Dose: 200 mg Divalproex Sodium (Divalproex Sodium Sprinkles 125 Mg Cap.Dr.Spr) 1,000 mg PO DAILY@1999 [facility] Last Admin: 11/22/24 21:03 Dose: 1,000 mg Ferrous Sulfate (Ferrous Sulfate 324 Mg Tablet.Dr) 324 mg PO DAILY [facility] Last Admin: 11/23/24 08:29 Dose: 324 mg Finasteride (Finasteride 5 Mg Tablet) 5 mg PO DAILY [facility] Last Admin: 11/23/24 08:28 Dose: 5 mg Magnesium Hydroxide (Milk Of Magnesia 30 Ml Oral.Susp) 30 ml PO DAILY PRN PRN Reason: Constipation Magnesium Hydroxide (Milk Of Magnesia 30 Ml Oral.Susp) 5 ml PO BEDTIME [facility] Last Admin: 11/22/24 21:04 Dose: 5 ml Mirtazapine (Mirtazapine 15 Mg Tablet) 15 mg PO BEDTIME [facility] Last Admin: 11/22/24 21:03 Dose: 15 mg Non-Formulary Medication (Amantadine Hcl) 50 mg PO BID [facility] Olanzapine (Olanzapine Odt 10 Mg Tab.Rapdis) 5 mg TRANSLINGU BID PRN PRN Reason: agitation Polyethylene Glycol (Polyethylene Glycol 3350 17 Gm Powd.Pack) 17 gm PO DAILY [facility] Last Admin: 11/23/24 08:31 Dose: 17 gm Pramipexole Dihydrochloride (Pramipexole Di-Hcl 0.25 Mg Tablet) 0.5 mg PO TID [facility] Last Admin: 11/23/24 08:30 Dose: 0.5 mg Senna/Docusate Sodium (Sennosides/Docusate Sodium Tablet) 1 tab PO BID PRN PRN Reason: no BM for more than 3days Sertraline HCl (Sertraline Hcl 50 Mg Tablet) 50 mg PO DAILY [facility] Last Admin: 11/23/24 08:29 Dose: 50 mg Sodium Chloride (0.9 % Sodium Chloride Flush 10 Ml Syringe) 10 ml IVFLUSH QSHIFT [facility] Last Admin: 11/23/24 08:36 Dose: 10 ml Tamsulosin HCl (Tamsulosin Hcl 0.4 Mg Capsule) 0.8 mg PO BEDTIME [facility] Last Admin: 11/22/24 21:03 Dose: 0.8 mg Thiamine HCl (Thiamine Hcl 100 Mg Tablet) 100 mg PO DAILY [facility] Last Admin: 11/23/24 08:29 Dose: 100 mg Trazodone HCl (Trazodone Hcl 50 Mg Tablet) 50 mg PO BEDTIME PRN PRN Reason: Insomnia Last Admin: 11/06/24 21:45 Dose: 50 mg Allergies Allergies Allergy/AdvReac Type Severity Reaction Status Date / Time No Known Allergies (NKA) Allergy Unknown NONE Verified 10/27/24 19:26 Assessment & Plan Assessment & Plan (1) Catatonia: Status: Acute Code(s): F06.1 - Catatonic disorder due to known physiological condition (2) Schizoaffective disorder: Status: Acute Code(s): F25.9 - Schizoaffective disorder, unspecified (3) Essential hypertension: Status: Acute Code(s): I10 - Essential (primary) hypertension (4) Urinary retention with incomplete bladder emptying: Status: Acute Code(s): R33.9 - Retention of urine, unspecified Plan 59 year-old male with hx of schizoaffective disorder, hypertension, urinary retention, type 2 diabetes, depression recently discharged from on 10/08/2024 after prolonged admission due to treatment resistant catatonia. He had responded to Ketamine treatment, failed ECT with further complications including aspiration. [facility] from [facility] with a change in mental status, he was found wandering in the streets soaked in urine. Depression with decompensation of schizophrenia, catatonia. Status post ketamine treatments, history of ECT with aspiration event Treatment per psych team. Urinary retention/BPH Continue Flomax 0.8mg, Finesteride Dove catheter in place. Follow up urology outpatient Dysphagia Tolerating diet, HOB up. OOB for meals. Mr. 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 He had responded to ketamine treatment, failed ECT with further complications including aspiration. He presents with catatonia again including mutism, waxy flexibility. He had one ketamine treatment since he was discharged from the hospital and only partial dose. He was recommended to do weekly ketamine treatments to prevent catatonia. reports he was taking medications as prescribed. Pending clozapine/norclozapine levels. PLAN 1. Admit to S1, Sect 12b, 1:1 unsteady gait 2. will check KUB for constipation as pt very poor historian but reports no BM in several days. Will also check bladder scan post void to rule out overflow incontinence due to urinary retention since reports increase incontinence in past few days. Note that he was straight cath while in the ED. 3. restart medications- abilify, sertraline, clozapine, low dose depakote 4. obtain collateral information 5. aftercare panning. 10/29/24 Pt to restart ketamine hcp in effect on 12 b at present 10/30/2024 Patient now on CV by healthcare proxy. Ketamine protocol ordered for the morning the that was previously quite helpful in treating patients catatonia has not responded previously well to lorazepam had only intermittent response to ECT here proxy does not wish ECT treatment and did respond to ketamine Medications continue that previously had been helpful on recent discharge 10/31/2024 Patient given 1st ketamine treatment had respondent previously to a series no change this point. Encourage food and fluids face anxious in appearance mostly mute minimally responsive catatonic symptoms continue. Continue Abilify mirtazapine sertraline Clozaril 150 mg Continue ketamine trial 11/01/2024 Patient remains generally unchanged. Continue clozapine sertraline mirtazapine Abilify 5 mg pramipexole 0.5 t.i.d. part of previous catatonia algorithm. Ketamine scheduled when possible had previously been quite helpful was previously on a 2 week 2 times a week schedule Urinary retention positive urine culture case discussed hospitalist service. Hospitalist consult called. Plan for antibiotics and Dove catheter and then trial without the catheter as possible check electrolytes in the morning may benefit from fluid replacement. Maintain head of the bed elevated supportive nursing care plan to reduce possible congestion 11/02: Continue current regimen and plans 11/03: Continue current plans and regimen Reason for continued inpatient stay 11/05/24 Pt with some imp more alert tolerating ketamine tx needs assist eating walking flat catatonic cont pts catatonia protocal 11/06/2024 Continue plan of care ketamine 11/07/2024 some mild improvement noted continue Monday ketamine treatment 11/07/2024 Patient continues to show improvement from initial catatonia more verbal try to evaluate mood and psychosis. Need clarity why patient was unable to complete outpatient ketamine 11/08/2024 Gradual improvement continues patient able to ambulate independently Dove catheter continues continue ketamine clozapine mirtazapine Abilify 11/09 no change in presentation; continue treatment plan 11/10 Been doing much better today, walking around, talking. He agrees and says he is doing all right.' patient remembers that it was hard for him to talk yesterday but unable to say why. 11/11/2024 Patient has had 2 days of marked improvement unable to explain behavior prior to admission refusing intravenous ketamine what exactly happened home and why he has negative connotations unable to give a clear history regarding this appears to be responding well to continue ketamine increase Depakote 11/12/2024 Will try discontinue Dove catheter and voiding trial. Monitor for cycling change patient appears to be shifting out of catatonia much orozco range of affect future oriented. Ketamine held today scheduled for 821. Continue Abilify clozapine Depakote try and determine lowest schedule for ketamine that maintains patient very little to go by to guide this decision 10/2024 Continue plan of care monitor for martha or confusion ketamine in the morning monitor response to discontinuing Dove 11/14/2024 Patient's some increased anxiety status post ketamine denies psychotic symptoms offered option of lorazepam PRN Will need to evaluate ketamine dosing 11/15/2024 Increase Abilify to 10 mg lower sertraline to 50 mg monitor response question patient overstimulated by antidepressants check Depakote level check ammonia 11/16/24 Continue plan of care check level 11/17/24 Continue to monitor 11/18/2024 Ketamine on hold gradually increase clozapine and Depakote check level 11/19/2024 Patient seems improved orozco affect calmer and more cooperative less irritable. Question adverse reaction to higher dose of sertraline now decreased responding to increased Depakote. Ketamine infusion scheduled for 11/2111/20/2024 Patient continues on prior algorithm for catatonia which includes Abilify clozapine mirtazapine clozapine. He is also on Depakote Depakote level 28.6 ammonia level unremarkable could decrease Depakote monitor response to ketamine see if we can try and discontinue currently 1 time a week monitor for any adverse effect 11/21/24 dep level low can increase ammonia ok can try and see if ketamine could be held 11/23: continue current management and treatment plan. Reason for continued inpatient stay Substantial Risk for: inability to function, rapid decompensation and med/psych decompensation Time Spent With Patient Time: Total time managing care of this patient today ____ minutes.
[2024-11-23 20:00] VITALS: BP 121/65; PULSE 80; RESP 16; TEMP 36.2; O2SAT 97
[2024-11-23] MEDS: Divalproex Sodium Sprinkles 125 MG CAP.DR.SPR 1000 MG PO (20:13)
[2024-11-23] MEDS: Milk of Magnesia 30 ML ORAL.SUSP 5 ML PO (20:18)
[2024-11-24] MEDS: 0.9 % Sodium Chloride Flush 10 ML SYRINGE IVFLUSH ×3 (02:39→15:21)
[2024-11-24 08:43] VITALS: BP 108/59; PULSE 77; RESP 14; TEMP 36.6; O2SAT 97
--- NOTE | 2024-11-24 08:43 | P.PNPSI_ITS ---
Subjective Subjective Date of Service: 11/24/24 Reason For Visit: Catatonia Interim History: Patient cooperative and in behavioral control. Less depressed and more communicative. Less internally preoccupied and more visible on the unit. Less catatonic. No behavioral concerns. Review of Systems Review of Systems denies Yes Unobtainable due to mental status Mental Status Exam Mental Status Exam Narrative: Patient seen in his room cooperative has resting tremor Much less latency of speech. Able to discuss his home life relationship with his family with whom he has not seen brother sister in many years. Mood described as okay some anxiety regarding tremor in his mouth and hands admits to periods of paranoia and hallucinations but denies currently no SI or HI better judgment improved impulse control he is concerned with tremorno current diaz Patient Appearance: Appropriate Patient Orientation: Person and Place Level of Consciousness: Alert Patient Behavior: Talkative and Good Eye Contact Mood Description: Calm, Appropriate and Relaxed Affect Description: Blunted Ability to Follow Directions: Fair Speech Pattern: Spontaneous Speech Memory Description: Episodic Impaired Diagnostics Vital Signs (24Hr): Vital Signs - 24 hr 11/23/24 20:00 Temperature 97.2 F Pulse Rate 80 Respiratory Rate 16 Blood Pressure 121/65 Pulse Oximetry 97 Oxygen Delivery Method Room Air BMI result Body Mass Index 28.8 Labs 11/19/24 10:54 11/19/24 10:54 Imaging Radiology Impressions: ITS Impressions KUB X-Ray 10/28/24 16:45 IMPRESSION: Again seen is a large amount of stool throughout the colon and rectum. Electronically signed by: Jose J Gonzalez MD 10/28/2024 05:20 PM EDT Medications Medications Current Medications Acetaminophen (Acetaminophen 325 Mg Tablet) 650 mg PO Q6H PRN PRN Reason: Headache/Pain, Scale 1-10 Last Admin: 11/01/24 20:01 Dose: 650 mg Al Hydroxide/Mg Hydroxide (Magnesium Hydrox/Alum Hydrox 30 Ml Oral.Susp) 30 ml PO Q6H PRN PRN Reason: Heartburn/Nausea Amantadine HCl (Amantadine Hcl 100 Mg Capsule) 100 mg PO DAILY@1700 [facility] Last Admin: 11/23/24 17:53 Dose: 100 mg Aripiprazole (Aripiprazole 10 Mg Tablet) 10 mg PO DAILY@1730 [facility] Last Admin: 11/23/24 17:53 Dose: 10 mg Ascorbic Acid (Ascorbic Acid 500 Mg Tablet) 500 mg PO DAILY [facility] Last Admin: 11/23/24 08:29 Dose: 500 mg Clozapine (Clozapine 100 Mg Tablet) 200 mg PO DAILY@1999 [facility] Last Admin: 11/23/24 20:16 Dose: 200 mg Divalproex Sodium (Divalproex Sodium Sprinkles 125 Mg Cap.Dr.Sunil) 1,000 mg PO DAILY@1999 [facility] Last Admin: 11/23/24 20:13 Dose: 1,000 mg Ferrous Sulfate (Ferrous Sulfate 324 Mg Tablet.Dr) 324 mg PO DAILY [facility] Last Admin: 11/23/24 08:29 Dose: 324 mg Finasteride (Finasteride 5 Mg Tablet) 5 mg PO DAILY [facility] Last Admin: 11/23/24 08:28 Dose: 5 mg Magnesium Hydroxide (Milk Of Magnesia 30 Ml Oral.Susp) 30 ml PO DAILY PRN PRN Reason: Constipation Magnesium Hydroxide (Milk Of Magnesia 30 Ml Oral.Susp) 5 ml PO BEDTIME [facility] Last Admin: 11/23/24 20:18 Dose: 5 ml Mirtazapine (Mirtazapine 15 Mg Tablet) 15 mg PO BEDTIME [facility] Last Admin: 11/23/24 20:16 Dose: 15 mg Olanzapine (Olanzapine Odt 10 Mg Tab.Rapdis) 5 mg TRANSLINGU BID PRN PRN Reason: agitation Polyethylene Glycol (Polyethylene Glycol 3350 17 Gm Powd.Pack) 17 gm PO DAILY [facility] Last Admin: 11/23/24 08:31 Dose: 17 gm Pramipexole Dihydrochloride (Pramipexole Di-Hcl 0.25 Mg Tablet) 0.5 mg PO TID [facility] Last Admin: 11/23/24 20:16 Dose: 0.5 mg Senna/Docusate Sodium (Sennosides/Docusate Sodium Tablet) 1 tab PO BID PRN PRN Reason: no BM for more than 3days Sertraline HCl (Sertraline Hcl 50 Mg Tablet) 50 mg PO DAILY [facility] Last Admin: 11/23/24 08:29 Dose: 50 mg Sodium Chloride (0.9 % Sodium Chloride Flush 10 Ml Syringe) 10 ml IVFLUSH QSHIFT [facility] Last Admin: 11/24/24 02:39 Dose: 10 ml Tamsulosin HCl (Tamsulosin Hcl 0.4 Mg Capsule) 0.8 mg PO BEDTIME [facility] Last Admin: 11/23/24 20:15 Dose: 0.8 mg Thiamine HCl (Thiamine Hcl 100 Mg Tablet) 100 mg PO DAILY [facility] Last Admin: 11/23/24 08:29 Dose: 100 mg Trazodone HCl (Trazodone Hcl 50 Mg Tablet) 50 mg PO BEDTIME PRN PRN Reason: Insomnia Last Admin: 11/06/24 21:45 Dose: 50 mg Allergies Allergies Allergy/AdvReac Type Severity Reaction Status Date / Time No Known Allergies (NKA) Allergy Unknown NONE Verified 10/27/24 19:26 Assessment & Plan Assessment & Plan (1) Catatonia: Status: Acute Code(s): F06.1 - Catatonic disorder due to known physiological condition (2) Schizoaffective disorder: Status: Acute Code(s): F25.9 - Schizoaffective disorder, unspecified (3) Essential hypertension: Status: Acute Code(s): I10 - Essential (primary) hypertension (4) Urinary retention with incomplete bladder emptying: Status: Acute Code(s): R33.9 - Retention of urine, unspecified Plan 59 year-old male with hx of schizoaffective disorder, hypertension, urinary retention, type 2 diabetes, depression recently discharged from on 10/08/2024 after prolonged admission due to treatment resistant catatonia. He had responded to Ketamine treatment, failed ECT with further complications including aspiration. [facility] with a change in mental status, he was found wandering in the streets soaked in urine. Depression with decompensation of schizophrenia, catatonia. Status post ketamine treatments, history of ECT with aspiration event Treatment per psych team. Urinary retention/BPH Continue Flomax 0.8mg, Finesteride Dove catheter in place. Follow up urology outpatient Dysphagia Tolerating diet, HOB up. OOB for meals. Mr. 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 He had responded to ketamine treatment, failed ECT with further complications including aspiration. He presents with catatonia again including mutism, waxy flexibility. He had one ketamine treatment since he was discharged from the hospital and only partial dose. He was recommended to do weekly ketamine treatments to prevent catatonia. reports he was taking medications as prescribed. Pending clozapine/norclozapine levels. PLAN 1. Admit to S1, Sect 12b, 1:1 unsteady gait 2. will check KUB for constipation as pt very poor historian but reports no BM in several days. Will also check bladder scan post void to rule out overflow incontinence due to urinary retention since GH reports increase incontinence in past few days. Note that he was straight cath while in the ED. 3. restart medications- abilify, sertraline, clozapine, low dose depakote 4. obtain collateral information 5. aftercare panning. 10/29/24 Pt to restart ketamine hcp in effect on 12 b at present 10/30/2024 Patient now on CV by healthcare proxy. Ketamine protocol ordered for the morning the that was previously quite helpful in treating patients catatonia has not responded previously well to lorazepam had only intermittent response to ECT here proxy does not wish ECT treatment and did respond to ketamine Medications continue that previously had been helpful on recent discharge 10/31/2024 Patient given 1st ketamine treatment had respondent previously to a series no change this point. Encourage food and fluids face anxious in appearance mostly mute minimally responsive catatonic symptoms continue. Continue Abilify mirtazapine sertraline Clozaril 150 mg Continue ketamine trial 11/01/2024 Patient remains generally unchanged. Continue clozapine sertraline mirtazapine Abilify 5 mg pramipexole 0.5 t.i.d. part of previous catatonia algorithm. Ketamine scheduled when possible had previously been quite helpful was previously on a 2 week 2 times a week schedule Urinary retention positive urine culture case discussed hospitalist service. Hospitalist consult called. Plan for antibiotics and Dove catheter and then trial without the catheter as possible check electrolytes in the morning may benefit from fluid replacement. Maintain head of the bed elevated supportive nursing care plan to reduce possible congestion 11/02: Continue current regimen and plans 11/03: Continue current plans and regimen Reason for continued inpatient stay 11/05/24 Pt with some imp more alert tolerating ketamine tx needs assist eating walking flat catatonic cont pts catatonia protocal 11/06/2024 Continue plan of care ketamine 11/07/2024 some mild improvement noted continue Monday ketamine treatment 11/07/2024 Patient continues to show improvement from initial catatonia more verbal try to evaluate mood and psychosis. Need clarity why patient was unable to complete outpatient ketamine 11/08/2024 Gradual improvement continues patient able to ambulate independently Dove catheter continues continue ketamine clozapine mirtazapine Abilify 11/09 no change in presentation; continue treatment plan 11/10 Been doing much better today, walking around, talking. He agrees and says he is doing all right.' patient remembers that it was hard for him to talk yesterday but unable to say why. 11/11/2024 Patient has had 2 days of marked improvement unable to explain behavior prior to admission refusing intravenous ketamine what exactly happened home and why he has negative connotations unable to give a clear history regarding this appears to be responding well to continue ketamine increase Depakote 11/12/2024 Will try discontinue Dove catheter and voiding trial. Monitor for cycling change patient appears to be shifting out of catatonia much orozco range of affect future oriented. Ketamine held today scheduled for 821. Continue Abilify clozapine Depakote try and determine lowest schedule for ketamine that maintains patient very little to go by to guide this decision 10/2024 Continue plan of care monitor for martha or confusion ketamine in the morning monitor response to discontinuing Dove 11/14/2024 Patient's some increased anxiety status post ketamine denies psychotic symptoms offered option of lorazepam PRN Will need to evaluate ketamine dosing 11/15/2024 Increase Abilify to 10 mg lower sertraline to 50 mg monitor response question patient overstimulated by antidepressants check Depakote level check ammonia 11/16/24 Continue plan of care check level 11/17/24 Continue to monitor 11/18/2024 Ketamine on hold gradually increase clozapine and Depakote check level 11/19/2024 Patient seems improved orozco affect calmer and more cooperative less irritable. Question adverse reaction to higher dose of sertraline now decreased responding to increased Depakote. Ketamine infusion scheduled for 11/2111/20/2024 Patient continues on prior algorithm for catatonia which includes Abilify clozapine mirtazapine clozapine. He is also on Depakote Depakote level 28.6 ammonia level unremarkable could decrease Depakote monitor response to ketamine see if we can try and discontinue currently 1 time a week monitor for any adverse effect 11/21/24 dep level low can increase ammonia ok can try and see if ketamine could be held 11/23: continue current management and treatment plan. 11/24: continue current management and treatment plan. Reason for continued inpatient stay Substantial Risk for: harm to self, inability to function, rapid decompensation and med/psych decompensation Time Spent With Patient Time: Total time managing care of this patient today ____ minutes.
[2024-11-24] MEDS: Ferrous Sulfate 324 MG TABLET.DR PO (08:48)
[2024-11-24 11:56] LABS: Neut%MD 63.9 %; WBCANC 5.0 X10*3/uL
[2024-11-24 20:00] VITALS: BP 130/70; PULSE 90; RESP 16; TEMP 36.1; O2SAT 97
[2024-11-24] MEDS: Milk of Magnesia 30 ML ORAL.SUSP 5 ML PO (20:44)
[2024-11-24] MEDS: Divalproex Sodium Sprinkles 125 MG CAP.DR.SPR 1000 MG PO (20:46)
[2024-11-25] MEDS: 0.9 % Sodium Chloride Flush 10 ML SYRINGE IVFLUSH ×3 (00:05→15:24)
[2024-11-25 08:00] VITALS: BP 121/56; PULSE 81; TEMP 36.2; O2SAT 98
[2024-11-25] MEDS: Ferrous Sulfate 324 MG TABLET.DR PO (08:33)
--- NOTE | 2024-11-25 12:03 | P.PNPSI_ITS ---
Subjective Subjective Date of Service: 11/25/24 Reason For Visit: Catatonia Interim History: Patient reports he is feeling better. He says the Ketamine has helped. He is more visible. He is eating. Patient cooperative and in behavioral control. Less depressed and more communicative. Less internally preoccupied and more visible on the unit. His main concern is he feels his hands shake more. Review of Systems Review of Systems denies Yes Unobtainable due to mental status Mental Status Exam Mental Status Exam Narrative: Patient seen in his room cooperative has resting tremor Much less latency of speech. Able to discuss his home life relationship with his family with whom he has not seen brother sister in many years. Mood described as okay some anxiety regarding tremor in his mouth and hands admits to periods of paranoia and hallucinations but denies currently no SI or HI better judgment improved impulse control he is concerned with tremorno current diaz Patient Appearance: Appropriate Patient Orientation: Person and Place Level of Consciousness: Alert Patient Behavior: Talkative and Good Eye Contact Mood Description: Calm, Appropriate and Relaxed Affect Description: Blunted Ability to Follow Directions: Fair Speech Pattern: Spontaneous Speech Memory Description: Episodic Impaired Diagnostics Vital Signs (24Hr): Vital Signs - 24 hr 11/24/24 20:00 11/25/24 08:00 Temperature 97 F 97.1 F Pulse Rate 90 81 Respiratory Rate 16 Blood Pressure 130/70 121/56 L Pulse Oximetry 97 98 Oxygen Delivery Method Room Air Room Air BMI result Body Mass Index 28.8 Labs 11/19/24 10:54 11/19/24 10:54 Labs: Laboratory Results - last 48 hr 11/24/24 11/24/24 08:00 11:31 Absolute Neuts (auto) 3.2 Hold Purple Top SEE NOTE Imaging Radiology Impressions: ITS Impressions KUB X-Ray 10/28/24 16:45 IMPRESSION: Again seen is a large amount of stool throughout the colon and rectum. Electronically signed by: Jose J Gonzalez MD 10/28/2024 05:20 PM EDT Medications Medications Current Medications Acetaminophen (Acetaminophen 325 Mg Tablet) 650 mg PO Q6H PRN PRN Reason: Headache/Pain, Scale 1-10 Last Admin: 11/01/24 20:01 Dose: 650 mg Al Hydroxide/Mg Hydroxide (Magnesium Hydrox/Alum Hydrox 30 Ml Oral.Susp) 30 ml PO Q6H PRN PRN Reason: Heartburn/Nausea Amantadine HCl (Amantadine Hcl 100 Mg Capsule) 100 mg PO DAILY@1700 [facility] Last Admin: 11/24/24 17:03 Dose: 100 mg Aripiprazole (Aripiprazole 10 Mg Tablet) 10 mg PO DAILY@1730 [facility] Last Admin: 11/24/24 17:03 Dose: 10 mg Ascorbic Acid (Ascorbic Acid 500 Mg Tablet) 500 mg PO DAILY [facility] Last Admin: 11/25/24 08:33 Dose: 500 mg Clozapine (Clozapine 100 Mg Tablet) 200 mg PO DAILY@1999 [facility] Last Admin: 11/24/24 20:46 Dose: 200 mg Divalproex Sodium (Divalproex Sodium Sprinkles 125 Mg Cap.) 1,000 mg PO DAILY@1999 [facility] Last Admin: 11/24/24 20:46 Dose: 1,000 mg Ferrous Sulfate (Ferrous Sulfate 324 Mg Tablet.) 324 mg PO DAILY [facility] Last Admin: 11/25/24 08:33 Dose: 324 mg Finasteride (Finasteride 5 Mg Tablet) 5 mg PO DAILY [facility] Last Admin: 11/25/24 08:33 Dose: 5 mg Magnesium Hydroxide (Milk Of Magnesia 30 Ml Oral.Susp) 30 ml PO DAILY PRN PRN Reason: Constipation Magnesium Hydroxide (Milk Of Magnesia 30 Ml Oral.Susp) 5 ml PO BEDTIME [facility] Last Admin: 11/24/24 20:44 Dose: 5 ml Mirtazapine (Mirtazapine 15 Mg Tablet) 15 mg PO BEDTIME [facility] Last Admin: 11/24/24 20:45 Dose: 15 mg Olanzapine (Olanzapine Odt 10 Mg Tab.Rapdis) 5 mg TRANSLINGU BID PRN PRN Reason: agitation Polyethylene Glycol (Polyethylene Glycol 3350 17 Gm Powd.Pack) 17 gm PO DAILY [facility] Last Admin: 11/25/24 08:33 Dose: 17 gm Pramipexole Dihydrochloride (Pramipexole Di-Hcl 0.25 Mg Tablet) 0.5 mg PO TID [facility] Last Admin: 11/25/24 08:33 Dose: 0.5 mg Senna/Docusate Sodium (Sennosides/Docusate Sodium Tablet) 1 tab PO BID PRN PRN Reason: no BM for more than 3days Sertraline HCl (Sertraline Hcl 50 Mg Tablet) 50 mg PO DAILY [facility] Last Admin: 11/25/24 08:34 Dose: 50 mg Sodium Chloride (0.9 % Sodium Chloride Flush 10 Ml Syringe) 10 ml IVFLUSH QSHIFT [facility] Last Admin: 11/25/24 08:34 Dose: 10 ml Tamsulosin HCl (Tamsulosin Hcl 0.4 Mg Capsule) 0.8 mg PO BEDTIME [facility] Last Admin: 11/24/24 20:45 Dose: 0.8 mg Thiamine HCl (Thiamine Hcl 100 Mg Tablet) 100 mg PO DAILY [facility] Last Admin: 11/25/24 08:33 Dose: 100 mg Trazodone HCl (Trazodone Hcl 50 Mg Tablet) 50 mg PO BEDTIME PRN PRN Reason: Insomnia Last Admin: 11/06/24 21:45 Dose: 50 mg Allergies Allergies Allergy/AdvReac Type Severity Reaction Status Date / Time No Known Allergies (NKA) Allergy Unknown NONE Verified 10/27/24 19:26 Assessment & Plan Assessment & Plan (1) Catatonia: Status: Acute Code(s): F06.1 - Catatonic disorder due to known physiological condition (2) Schizoaffective disorder: Status: Acute Code(s): F25.9 - Schizoaffective disorder, unspecified (3) Essential hypertension: Status: Acute Code(s): I10 - Essential (primary) hypertension (4) Urinary retention with incomplete bladder emptying: Status: Acute Code(s): R33.9 - Retention of urine, unspecified Plan 59 year-old male with hx of schizoaffective disorder, hypertension, urinary retention, type 2 diabetes, depression recently discharged from on 10/08/2024 after prolonged admission due to treatment resistant catatonia. He had responded to Ketamine treatment, failed ECT with further complications including aspiration. He presented from custodial with a change in mental status, he was found wandering in the streets soaked in urine. Depression with decompensation of schizophrenia, catatonia. Status post ketamine treatments, history of ECT with aspiration event Treatment per psych team. Urinary retention/BPH Continue Flomax 0.8mg, Finesteride Dove catheter in place. Follow up urology outpatient Dysphagia Tolerating diet, HOB up. OOB for meals. Mr. 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 He had responded to ketamine treatment, failed ECT with further complications including aspiration. He presents with catatonia again including mutism, waxy flexibility. He had one ketamine treatment since he was discharged from the hospital and only partial dose. He was recommended to do weekly ketamine treatments to prevent catatonia. reports he was taking medications as prescribed. Pending clozapine/norclozapine levels. PLAN 1. Admit to , Sect 12b, 1:1 unsteady gait 2. will check KUB for constipation as pt very poor historian but reports no BM in several days. Will also check bladder scan post void to rule out overflow incontinence due to urinary retention since reports increase incontinence in past few days. Note that he was straight cath while in the ED. 3. restart medications- abilify, sertraline, clozapine, low dose depakote 4. obtain collateral information 5. aftercare panning. 10/29/24 Pt to restart ketamine hcp in effect on 12 b at present 10/30/2024 Patient now on CV by healthcare proxy. Ketamine protocol ordered for the morning the that was previously quite helpful in treating patients catatonia has not responded previously well to lorazepam had only intermittent response to ECT here proxy does not wish ECT treatment and did respond to ketamine Medications continue that previously had been helpful on recent discharge 10/31/2024 Patient given 1st ketamine treatment had respondent previously to a series no change this point. Encourage food and fluids face anxious in appearance mostly mute minimally responsive catatonic symptoms continue. Continue Abilify mirtazapine sertraline Clozaril 150 mg Continue ketamine trial 11/01/2024 Patient remains generally unchanged. Continue clozapine sertraline mirtazapine Abilify 5 mg pramipexole 0.5 t.i.d. part of previous catatonia algorithm. Ketamine scheduled when possible had previously been quite helpful was previously on a 2 week 2 times a week schedule Urinary retention positive urine culture case discussed hospitalist service. Hospitalist consult called. Plan for antibiotics and Dove catheter and then trial without the catheter as possible check electrolytes in the morning may benefit from fluid replacement. Maintain head of the bed elevated supportive nursing care plan to reduce possible congestion 11/02: Continue current regimen and plans 8/10: Continue current plans and regimen Reason for continued inpatient stay 11/05/24 Pt with some imp more alert tolerating ketamine tx needs assist eating walking flat catatonic cont pts catatonia protocal 11/06/2024 Continue plan of care ketamine 11/07/2024 some mild improvement noted continue Monday ketamine treatment 11/07/2024 Patient continues to show improvement from initial catatonia more verbal try to evaluate mood and psychosis. Need clarity why patient was unable to complete outpatient ketamine 11/08/2024 Gradual improvement continues patient able to ambulate independently Dove catheter continues continue ketamine clozapine mirtazapine Abilify 11/09 no change in presentation; continue treatment plan 11/10 Been doing much better today, walking around, talking. He agrees and says he is doing all right.' patient remembers that it was hard for him to talk yesterday but unable to say why. 11/11/2024 Patient has had 2 days of marked improvement unable to explain behavior prior to admission refusing intravenous ketamine what exactly happened home and why he has negative connotations unable to give a clear history regarding this appears to be responding well to continue ketamine increase Depakote 11/12/2024 Will try discontinue Dove catheter and voiding trial. Monitor for cycling change patient appears to be shifting out of catatonia much orozco range of affect future oriented. Ketamine held today scheduled for 821. Continue Abilify clozapine Depakote try and determine lowest schedule for ketamine that maintains patient very little to go by to guide this decision 10/2024 Continue plan of care monitor for martha or confusion ketamine in the morning monitor response to discontinuing Dove 11/14/2024 Patient's some increased anxiety status post ketamine denies psychotic symptoms offered option of lorazepam PRN Will need to evaluate ketamine dosing 11/15/2024 Increase Abilify to 10 mg lower sertraline to 50 mg monitor response question patient overstimulated by antidepressants check Depakote level check ammonia 11/16/24 Continue plan of care check level 11/17/24 Continue to monitor 11/18/2024 Ketamine on hold gradually increase clozapine and Depakote check level 11/19/2024 Patient seems improved orozco affect calmer and more cooperative less irritable. Question adverse reaction to higher dose of sertraline now decreased responding to increased Depakote. Ketamine infusion scheduled for 11/2111/20/2024 Patient continues on prior algorithm for catatonia which includes Abilify clozapine mirtazapine clozapine. He is also on Depakote Depakote level 28.6 ammonia level unremarkable could decrease Depakote monitor response to ketamine see if we can try and discontinue currently 1 time a week monitor for any adverse effect 11/21/24 dep level low can increase ammonia ok can try and see if ketamine could be held 11/23: continue current management and treatment plan. 11/24: continue current management and treatment plan. 11/25: Continue current management and treatment plan. Reason for continued inpatient stay Substantial Risk for: inability to function, rapid decompensation and med/psych decompensation Time Spent With Patient Time: Total time managing care of this patient today ____ minutes.
--- NOTE | 2024-11-25 16:18 | MHC.CLN ---
F/U DIET=REGULAR. ENSURE TID (1050 KCALS, 60 G PROTEIN) TO PROMOTE NUTRITIONAL INTAKE. CONTINUES WITH USUALLY VERY GOOD PO INTAKE. RD TO MONITOR WEEKLY.
[2024-11-25 20:00] VITALS: BP 131/63; PULSE 83; RESP 16; TEMP 36.7; O2SAT 96
[2024-11-25] MEDS: Milk of Magnesia 30 ML ORAL.SUSP 5 ML PO (20:35)
[2024-11-25] MEDS: Divalproex Sodium Sprinkles 125 MG CAP.DR.SPR 1000 MG PO (20:36)
[2024-11-26] MEDS: 0.9 % Sodium Chloride Flush 10 ML SYRINGE IVFLUSH ×3 (00:30→15:49)
[2024-11-26 08:00] VITALS: BP 116/59; PULSE 75; RESP 16; TEMP 36.6; O2SAT 97
[2024-11-26] MEDS: Ferrous Sulfate 324 MG TABLET.DR PO (08:32)
--- NOTE | 2024-11-26 15:23 | P.PNPSI_ITS ---
Subjective Subjective Date of Service: 11/26/24 Reason For Visit: Catatonia Interim History: seated in milieu, awake and alert. pleasant, cooperative. states he is feeling better. no complaints or requests. Mental Status Exam Mental Status Exam Narrative: Patient seen in milieu cooperative has resting tremor Much less latency of speech. some concern about tremor. thoughts linear, logical, non-psychotic content and process. affect blunted. mood improved. no SI/HI/AVH expressed. Diagnostics Vital Signs (24Hr): Vital Signs - 24 hr 11/25/24 20:00 11/26/24 08:00 Temperature 98.1 F 97.9 F Pulse Rate 83 75 Respiratory Rate 16 16 Blood Pressure 131/63 116/59 L Pulse Oximetry 96 97 Oxygen Delivery Method Room Air Room Air BMI result Body Mass Index 28.8 Labs 11/19/24 10:54 11/19/24 10:54 Imaging Radiology Impressions: ITS Impressions KUB X-Ray 10/28/24 16:45 IMPRESSION: Again seen is a large amount of stool throughout the colon and rectum. Electronically signed by: Jose J Gonzalez MD 10/28/2024 05:20 PM EDT Medications Medications Current Medications Acetaminophen (Acetaminophen 325 Mg Tablet) 650 mg PO Q6H PRN PRN Reason: Headache/Pain, Scale 1-10 Last Admin: 11/01/24 20:01 Dose: 650 mg Al Hydroxide/Mg Hydroxide (Magnesium Hydrox/Alum Hydrox 30 Ml Oral.Susp) 30 ml PO Q6H PRN PRN Reason: Heartburn/Nausea Amantadine HCl (Amantadine Hcl 100 Mg Capsule) 100 mg PO DAILY@1700 [facility] Last Admin: 11/25/24 16:56 Dose: 100 mg Aripiprazole (Aripiprazole 10 Mg Tablet) 10 mg PO DAILY@1730 [facility] Last Admin: 11/25/24 16:56 Dose: 10 mg Ascorbic Acid (Ascorbic Acid 500 Mg Tablet) 500 mg PO DAILY [facility] Last Admin: 11/26/24 08:32 Dose: 500 mg Clozapine (Clozapine 100 Mg Tablet) 200 mg PO DAILY@1999 [facility] Last Admin: 11/25/24 20:37 Dose: 200 mg Divalproex Sodium (Divalproex Sodium Sprinkles 125 Mg ) 1,000 mg PO DAILY@1999 [facility] Last Admin: 11/25/24 20:36 Dose: 1,000 mg Ferrous Sulfate (Ferrous Sulfate 324 Mg Tablet.Dr) 324 mg PO DAILY [facility] Last Admin: 11/26/24 08:32 Dose: 324 mg Finasteride (Finasteride 5 Mg Tablet) 5 mg PO DAILY [facility] Last Admin: 11/26/24 08:32 Dose: 5 mg Magnesium Hydroxide (Milk Of Magnesia 30 Ml Oral.Susp) 30 ml PO DAILY PRN PRN Reason: Constipation Magnesium Hydroxide (Milk Of Magnesia 30 Ml Oral.Susp) 5 ml PO BEDTIME [facility] Last Admin: 11/25/24 20:35 Dose: 5 ml Mirtazapine (Mirtazapine 15 Mg Tablet) 15 mg PO BEDTIME [facility] Last Admin: 11/25/24 20:37 Dose: 15 mg Olanzapine (Olanzapine Odt 10 Mg Tab.Rapdis) 5 mg TRANSLINGU BID PRN PRN Reason: agitation Polyethylene Glycol (Polyethylene Glycol 3350 17 Gm Powd.Pack) 17 gm PO DAILY [facility] Last Admin: 11/26/24 08:32 Dose: 17 gm Pramipexole Dihydrochloride (Pramipexole Di-Hcl 0.25 Mg Tablet) 0.5 mg PO TID [facility] Last Admin: 11/26/24 15:12 Dose: 0.5 mg Senna/Docusate Sodium (Sennosides/Docusate Sodium Tablet) 1 tab PO BID PRN PRN Reason: no BM for more than 3days Sertraline HCl (Sertraline Hcl 50 Mg Tablet) 50 mg PO DAILY [facility] Last Admin: 11/26/24 08:32 Dose: 50 mg Sodium Chloride (0.9 % Sodium Chloride Flush 10 Ml Syringe) 10 ml IVFLUSH QSHIFT [facility] Last Admin: 11/26/24 08:56 Dose: 10 ml Tamsulosin HCl (Tamsulosin Hcl 0.4 Mg Capsule) 0.8 mg PO BEDTIME [facility] Last Admin: 11/25/24 20:36 Dose: 0.8 mg Thiamine HCl (Thiamine Hcl 100 Mg Tablet) 100 mg PO DAILY [facility] Last Admin: 11/26/24 08:32 Dose: 100 mg Trazodone HCl (Trazodone Hcl 50 Mg Tablet) 50 mg PO BEDTIME PRN PRN Reason: Insomnia Last Admin: 11/06/24 21:45 Dose: 50 mg Allergies Allergies Allergy/AdvReac Type Severity Reaction Status Date / Time No Known Allergies (NKA) Allergy Unknown NONE Verified 10/27/24 19:26 Assessment & Plan Assessment & Plan (1) Catatonia: Status: Acute Code(s): F06.1 - Catatonic disorder due to known physiological condition (2) Schizoaffective disorder: Status: Acute Code(s): F25.9 - Schizoaffective disorder, unspecified (3) Essential hypertension: Status: Acute Code(s): I10 - Essential (primary) hypertension (4) Urinary retention with incomplete bladder emptying: Status: Acute Code(s): R33.9 - Retention of urine, unspecified Plan 59 year-old male with hx of schizoaffective disorder, hypertension, urinary retention, type 2 diabetes, depression recently discharged from [facility] on 10/08/2024 after prolonged admission due to treatment resistant catatonia. He had responded to Ketamine treatment, failed ECT with further complications including aspiration. He presented from jail with a change in mental status, he was found wandering in the streets soaked in urine. Depression with decompensation of schizophrenia, catatonia. Status post ketamine treatments, history of ECT with aspiration event Treatment per psych team. Urinary retention/BPH Continue Flomax 0.8mg, Finesteride Dove catheter in place. Follow up urology outpatient Dysphagia Tolerating diet, HOB up. OOB for meals. Mr. 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 He had responded to ketamine treatment, failed ECT with further complications including aspiration. He presents with catatonia again including mutism, waxy flexibility. He had one ketamine treatment since he was discharged from the hospital and only partial dose. He was recommended to do weekly ketamine treatments to prevent catatonia. reports he was taking medications as prescribed. Pending clozapine/norclozapine levels. PLAN 1. Admit to S1, Sect 12b, 1:1 unsteady gait 2. will check KUB for constipation as pt very poor historian but reports no BM in several days. Will also check bladder scan post void to rule out overflow incontinence due to urinary retention since reports increase incontinence in past few days. Note that he was straight cath while in the ED. 3. restart medications- abilify, sertraline, clozapine, low dose depakote 4. obtain collateral information 5. aftercare panning. 10/29/24 Pt to restart ketamine hcp in effect on 12 b at present 10/30/2024 Patient now on CV by healthcare proxy. Ketamine protocol ordered for the morning the that was previously quite helpful in treating patients catatonia has not responded previously well to lorazepam had only intermittent response to ECT here proxy does not wish ECT treatment and did respond to ketamine Medications continue that previously had been helpful on recent discharge 10/31/2024 Patient given 1st ketamine treatment had respondent previously to a series no change this point. Encourage food and fluids face anxious in appearance mostly mute minimally responsive catatonic symptoms continue. Continue Abilify mirtazapine sertraline Clozaril 150 mg Continue ketamine trial 11/01/2024 Patient remains generally unchanged. Continue clozapine sertraline mirtazapine Abilify 5 mg pramipexole 0.5 t.i.d. part of previous catatonia algorithm. Ketamine scheduled when possible had previously been quite helpful was previously on a 2 week 2 times a week schedule Urinary retention positive urine culture case discussed hospitalist service. Hospitalist consult called. Plan for antibiotics and Dove catheter and then trial without the catheter as possible check electrolytes in the morning may benefit from fluid replacement. Maintain head of the bed elevated supportive nursing care plan to reduce possible congestion 11/02: Continue current regimen and plans 11/03: Continue current plans and regimen Reason for continued inpatient stay 11/05/24 Pt with some imp more alert tolerating ketamine tx needs assist eating walking flat catatonic cont pts catatonia protocal 11/06/2024 Continue plan of care ketamine 11/07/2024 some mild improvement noted continue Monday ketamine treatment 11/07/2024 Patient continues to show improvement from initial catatonia more verbal try to evaluate mood and psychosis. Need clarity why patient was unable to complete outpatient ketamine 11/08/2024 Gradual improvement continues patient able to ambulate independently Dove catheter continues continue ketamine clozapine mirtazapine Abilify 11/09 no change in presentation; continue treatment plan 11/10 Been doing much better today, walking around, talking. He agrees and says he is doing all right.' patient remembers that it was hard for him to talk yesterday but unable to say why. 11/11/2024 Patient has had 2 days of marked improvement unable to explain behavior prior to admission refusing intravenous ketamine what exactly happened home and why he has negative connotations unable to give a clear history regarding this appears to be responding well to continue ketamine increase Depakote 11/12/2024 Will try discontinue Dove catheter and voiding trial. Monitor for cycling change patient appears to be shifting out of catatonia much orozco range of affect future oriented. Ketamine held today scheduled for 821. Continue Abilify clozapine Depakote try and determine lowest schedule for ketamine that maintains patient very little to go by to guide this decision 10/2024 Continue plan of care monitor for martha or confusion ketamine in the morning monitor response to discontinuing Dove 11/14/2024 Patient's some increased anxiety status post ketamine denies psychotic symptoms offered option of lorazepam PRN Will need to evaluate ketamine dosing 11/15/2024 Increase Abilify to 10 mg lower sertraline to 50 mg monitor response question patient overstimulated by antidepressants check Depakote level check ammonia 11/16/24 Continue plan of care check level 11/17/24 Continue to monitor 11/18/2024 Ketamine on hold gradually increase clozapine and Depakote check level 11/19/2024 Patient seems improved orozco affect calmer and more cooperative less irritable. Question adverse reaction to higher dose of sertraline now decreased responding to increased Depakote. Ketamine infusion scheduled for 11/2111/20/2024 Patient continues on prior algorithm for catatonia which includes Abilify clozapine mirtazapine clozapine. He is also on Depakote Depakote level 28.6 ammonia level unremarkable could decrease Depakote monitor response to ketamine see if we can try and discontinue currently 1 time a week monitor for any adverse effect 11/21/24 dep level low can increase ammonia ok can try and see if ketamine could be held 11/23: continue current management and treatment plan. 11/24: continue current management and treatment plan. 11/25: Continue current management and treatment plan. 11/26: in milieu, able to converse casually. blunted with PMR, but thoughts linear and organized. continue current mgmt. Reason for continued inpatient stay Substantial Risk for: inability to function and rapid decompensation Time Spent With Patient Time: Total time managing care of this patient today ____ minutes.
[2024-11-26 20:00] VITALS: BP 126/65; PULSE 73; RESP 18; TEMP 36.5; O2SAT 98
[2024-11-26] MEDS: Divalproex Sodium Sprinkles 125 MG CAP.DR.SPR 1000 MG PO (20:22)
[2024-11-26] MEDS: Milk of Magnesia 30 ML ORAL.SUSP 5 ML PO (20:22)
[2024-11-27] MEDS: 0.9 % Sodium Chloride Flush 10 ML SYRINGE IVFLUSH ×3 (01:15→17:06)
[2024-11-27 08:00] VITALS: BP 134/65; PULSE 79; RESP 16; TEMP 35.8; O2SAT 98
[2024-11-27] MEDS: Ferrous Sulfate 324 MG TABLET.DR PO (08:46)
--- NOTE | 2024-11-27 11:02 | HO.PSYCHPN ---
Subjective Subjective Date of Service: 11/27/24 Reason For Visit: Catatonia Subjective Notes: Conditional Voluntary Healthcare Proxy: Yes Interim History: Patient is awake and alert. pleasant, cooperative. states he is feeling better. no complaints or requests. Social in the milieu eating has been started on amantadine Medication Compliance: Yes Mental Status Exam Mental Status Exam Narrative: Patient seen in the milieu some resting tremor noted patient states he thinks it has improved Much less latency of speech. some concern about tremor. thoughts linear, logical, non-psychotic content and process. affect blunted. mood improved. no SI/HI/AVH expressed. Much orozco affect noted Diagnostics Vital Signs (24Hr): Vital Signs - 24 hr 11/26/24 20:00 11/27/24 08:00 Temperature 97.7 F 96.5 F L Pulse Rate 73 79 Respiratory Rate 18 16 Blood Pressure 126/65 134/65 Pulse Oximetry 98 98 Oxygen Delivery Method Room Air Room Air BMI result Body Mass Index 28.8 Labs 11/19/24 10:54 11/19/24 10:54 Imaging Radiology Impressions: ITS Impressions KUB X-Ray 10/28/24 16:45 IMPRESSION: Again seen is a large amount of stool throughout the colon and rectum. Electronically signed by: Jose J Gonzalez MD 10/28/2024 05:20 PM EDT Medications Medications Current Medications Acetaminophen (Acetaminophen 325 Mg Tablet) 650 mg PO Q6H PRN PRN Reason: Headache/Pain, Scale 1-10 Last Admin: 11/01/24 20:01 Dose: 650 mg Al Hydroxide/Mg Hydroxide (Magnesium Hydrox/Alum Hydrox 30 Ml Oral.Susp) 30 ml PO Q6H PRN PRN Reason: Heartburn/Nausea Amantadine HCl (Amantadine Hcl 100 Mg Capsule) 100 mg PO DAILY@1700 [facility] Last Admin: 11/26/24 16:44 Dose: 100 mg Aripiprazole (Aripiprazole 10 Mg Tablet) 10 mg PO DAILY@1730 [facility] Last Admin: 11/26/24 16:44 Dose: 10 mg Ascorbic Acid (Ascorbic Acid 500 Mg Tablet) 500 mg PO DAILY [facility] Last Admin: 11/27/24 08:46 Dose: 500 mg Clozapine (Clozapine 100 Mg Tablet) 200 mg PO DAILY@1999 [facility] Last Admin: 11/26/24 20:22 Dose: 200 mg Divalproex Sodium (Divalproex Sodium Sprinkles 125 Mg Cap.) 1,000 mg PO DAILY@1999 [facility] Last Admin: 11/26/24 20:22 Dose: 1,000 mg Ferrous Sulfate (Ferrous Sulfate 324 Mg Tablet.Dr) 324 mg PO DAILY [facility] Last Admin: 11/27/24 08:46 Dose: 324 mg Finasteride (Finasteride 5 Mg Tablet) 5 mg PO DAILY [facility] Last Admin: 11/27/24 08:46 Dose: 5 mg Ketamine HCl 45 mg/ Sodium (Chloride) 45 mls @ 45 mls/hr IV ONCE ONE Stop: 11/27/24 10:59 Magnesium Hydroxide (Milk Of Magnesia 30 Ml Oral.Susp) 30 ml PO DAILY PRN PRN Reason: Constipation Magnesium Hydroxide (Milk Of Magnesia 30 Ml Oral.Susp) 5 ml PO BEDTIME [facility] Last Admin: 11/26/24 20:22 Dose: 5 ml Mirtazapine (Mirtazapine 15 Mg Tablet) 15 mg PO BEDTIME [facility] Last Admin: 11/26/24 20:22 Dose: 15 mg Olanzapine (Olanzapine Odt 10 Mg Tab.Rapdis) 5 mg TRANSLINGU BID PRN PRN Reason: agitation Polyethylene Glycol (Polyethylene Glycol 3350 17 Gm Powd.Pack) 17 gm PO DAILY [facility] Last Admin: 11/27/24 08:46 Dose: 17 gm Pramipexole Dihydrochloride (Pramipexole Di-Hcl 0.25 Mg Tablet) 0.5 mg PO TID [facility] Last Admin: 11/27/24 08:46 Dose: 0.5 mg Senna/Docusate Sodium (Sennosides/Docusate Sodium Tablet) 1 tab PO BID PRN PRN Reason: no BM for more than 3days Sertraline HCl (Sertraline Hcl 50 Mg Tablet) 50 mg PO DAILY [facility] Last Admin: 11/27/24 08:46 Dose: 50 mg Sodium Chloride (0.9 % Sodium Chloride Flush 10 Ml Syringe) [facility] Last Admin: 11/27/24 08:43 Dose: 10 ml Tamsulosin HCl (Tamsulosin Hcl 0.4 Mg Capsule) 0.8 mg PO BEDTIME [facility] Last Admin: 11/26/24 20:21 Dose: 0.8 mg Thiamine HCl (Thiamine Hcl 100 Mg Tablet) 100 mg PO DAILY [facility] Last Admin: 11/27/24 08:46 Dose: 100 mg Trazodone HCl (Trazodone Hcl 50 Mg Tablet) 50 mg PO BEDTIME PRN PRN Reason: Insomnia Last Admin: 11/06/24 21:45 Dose: 50 mg Allergies Allergies Allergy/AdvReac Type Severity Reaction Status Date / Time No Known Allergies (NKA) Allergy Unknown NONE Verified 10/27/24 19:26 Assessment & Plan Assessment & Plan (1) Catatonia: Status: Acute Code(s): F06.1 - Catatonic disorder due to known physiological condition (2) Schizoaffective disorder: Status: Acute Code(s): F25.9 - Schizoaffective disorder, unspecified (3) Essential hypertension: Status: Acute Code(s): I10 - Essential (primary) hypertension (4) Urinary retention with incomplete bladder emptying: Status: Acute Code(s): R33.9 - Retention of urine, unspecified Plan 59 year-old male with hx of schizoaffective disorder, hypertension, urinary retention, type 2 diabetes, depression recently discharged from on 10/08/2024 after prolonged admission due to treatment resistant catatonia. He had responded to Ketamine treatment, failed ECT with further complications including aspiration. He presented from long term with a change in mental status, he was found wandering in the streets soaked in urine. Depression with decompensation of schizophrenia, catatonia. Status post ketamine treatments, history of ECT with aspiration event Treatment per psych team. Urinary retention/BPH Continue Flomax 0.8mg, Finesteride Dove catheter in place. Follow up urology outpatient Dysphagia Tolerating diet, HOB up. OOB for meals. Mr. 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 He had responded to ketamine treatment, failed ECT with further complications including aspiration. He presents with catatonia again including mutism, waxy flexibility. He had one ketamine treatment since he was discharged from the hospital and only partial dose. He was recommended to do weekly ketamine treatments to prevent catatonia. reports he was taking medications as prescribed. Pending clozapine/norclozapine levels. PLAN 1. Admit to S1, Sect 12b, 1:1 unsteady gait 2. will check KUB for constipation as pt very poor historian but reports no BM in several days. Will also check bladder scan post void to rule out overflow incontinence due to urinary retention since reports increase incontinence in past few days. Note that he was straight cath while in the ED. 3. restart medications- abilify, sertraline, clozapine, low dose depakote 4. obtain collateral information 5. aftercare panning. 10/29/24 Pt to restart ketamine hcp in effect on 12 b at present 10/30/2024 Patient now on CV by healthcare proxy. Ketamine protocol ordered for the morning the that was previously quite helpful in treating patients catatonia has not responded previously well to lorazepam had only intermittent response to ECT here proxy does not wish ECT treatment and did respond to ketamine Medications continue that previously had been helpful on recent discharge 10/31/2024 Patient given 1st ketamine treatment had respondent previously to a series no change this point. Encourage food and fluids face anxious in appearance mostly mute minimally responsive catatonic symptoms continue. Continue Abilify mirtazapine sertraline Clozaril 150 mg Continue ketamine trial 11/01/2024 Patient remains generally unchanged. Continue clozapine sertraline mirtazapine Abilify 5 mg pramipexole 0.5 t.i.d. part of previous catatonia algorithm. Ketamine scheduled when possible had previously been quite helpful was previously on a 2 week 2 times a week schedule Urinary retention positive urine culture case discussed hospitalist service. Hospitalist consult called. Plan for antibiotics and Dove catheter and then trial without the catheter as possible check electrolytes in the morning may benefit from fluid replacement. Maintain head of the bed elevated supportive nursing care plan to reduce possible congestion 11/02: Continue current regimen and plans 11/03: Continue current plans and regimen Reason for continued inpatient stay 11/05/24 Pt with some imp more alert tolerating ketamine tx needs assist eating walking flat catatonic cont pts catatonia protocal 11/06/2024 Continue plan of care ketamine 11/07/2024 some mild improvement noted continue Monday ketamine treatment 11/07/2024 Patient continues to show improvement from initial catatonia more verbal try to evaluate mood and psychosis. Need clarity why patient was unable to complete outpatient ketamine 11/08/2024 Gradual improvement continues patient able to ambulate independently Dove catheter continues continue ketamine clozapine mirtazapine Abilify 11/09 no change in presentation; continue treatment plan 11/10 Been doing much better today, walking around, talking. He agrees and says he is doing all right.' patient remembers that it was hard for him to talk yesterday but unable to say why. 11/11/2024 Patient has had 2 days of marked improvement unable to explain behavior prior to admission refusing intravenous ketamine what exactly happened home and why he has negative connotations unable to give a clear history regarding this appears to be responding well to continue ketamine increase Depakote 11/12/2024 Will try discontinue Dove catheter and voiding trial. Monitor for cycling change patient appears to be shifting out of catatonia much orozco range of affect future oriented. Ketamine held today scheduled for 821. Continue Abilify clozapine Depakote try and determine lowest schedule for ketamine that maintains patient very little to go by to guide this decision 10/2024 Continue plan of care monitor for martha or confusion ketamine in the morning monitor response to discontinuing Dove 11/14/2024 Patient's some increased anxiety status post ketamine denies psychotic symptoms offered option of lorazepam PRN Will need to evaluate ketamine dosing 11/15/2024 Increase Abilify to 10 mg lower sertraline to 50 mg monitor response question patient overstimulated by antidepressants check Depakote level check ammonia 11/16/24 Continue plan of care check level 11/17/24 Continue to monitor 11/18/2024 Ketamine on hold gradually increase clozapine and Depakote check level 11/19/2024 Patient seems improved orozco affect calmer and more cooperative less irritable. Question adverse reaction to higher dose of sertraline now decreased responding to increased Depakote. Ketamine infusion scheduled for 11/2111/20/2024 Patient continues on prior algorithm for catatonia which includes Abilify clozapine mirtazapine clozapine. He is also on Depakote Depakote level 28.6 ammonia level unremarkable could decrease Depakote monitor response to ketamine see if we can try and discontinue currently 1 time a week monitor for any adverse effect 11/21/24 dep level low can increase ammonia ok can try and see if ketamine could be held 11/22/24 will try amantadine for eps monitor response 11/27/2024 Ketamine in the morning will try half dosing continue amantadine for EPS continue clozapine and Depakote Reason for continued inpatient stay Substantial Risk for: inability to function and rapid decompensation Time Spent With Patient Time: Total time managing care of this patient today ____ minutes.
--- NOTE | 2024-11-27 19:04 | PC.NURSE ---
Midline dressing changed.
[2024-11-27 20:00] VITALS: BP 146/68; PULSE 79; TEMP 37.1; O2SAT 96
[2024-11-27] MEDS: Divalproex Sodium Sprinkles 125 MG CAP.DR.SPR 1000 MG PO (20:19)
[2024-11-27] MEDS: Milk of Magnesia 30 ML ORAL.SUSP 5 ML PO (20:23)
[2024-11-28] VITALS (12 sets, daily range): BP systolic 115–131; BP diastolic 56–68; PULSE 74–80; RESP 16–18; TEMP 35.9–36.4; O2SAT 94–99; BMI 28.9
[2024-11-28] MEDS: Ferrous Sulfate 324 MG TABLET.DR PO (10:26)
[2024-11-28] MEDS: 0.9 % Sodium Chloride Flush 10 ML SYRINGE IVFLUSH ×4 (10:26→23:56)
--- NOTE | 2024-11-28 10:35 | PC.NURSE ---
Benjamin was picked up from PACU post ketamine infusion. Vital sings stable in PACU. Reports I'm in a good mood. Awake/alert and oriented x to person and place. Will continue to monitor for safety and changes in behavior.
[2024-11-28] MEDS: Milk of Magnesia 30 ML ORAL.SUSP 5 ML PO (20:20)
[2024-11-28] MEDS: Divalproex Sodium Sprinkles 125 MG CAP.DR.SPR 1000 MG PO (20:22)
--- NOTE | 2024-11-28 20:59 | P.PNPSI_ITS ---
Subjective Subjective Date of Service: 11/28/24 Reason For Visit: Catatonia Subjective Notes: Conditional Voluntary Healthcare Proxy: Yes Interim History: Patient seen psychiatric follow-up case reviewed treatment team. Patient has been social and engaged out in the milieu eating much less in the way of catatonic symptoms had ketamine treatment at 0.25 mg per kg did well with this Medication Compliance: Yes Review of Systems Acute medical concerns: No No longer with urinary retention Mental Status Exam Mental Status Exam Narrative: Patient seen in the milieu some resting tremor noted patient states he thinks it has improved not noted today. Much less latency of speech. Smiling states he is feeling much better tolerated treatment without difficulty. thoughts linear, logical, non-psychotic content and process. affect much orozco. mood improved. no SI/HI/AVH expressed. Diagnostics Vital Signs (24Hr): Vital Signs - 24 hr 11/28/24 08:02 11/28/24 08:15 11/28/24 08:30 Temperature 96.7 F L 97.3 F Pulse Rate 80 75 76 Respiratory Rate 18 18 16 Blood Pressure 131/65 125/68 120/61 Pulse Oximetry 99 99 95 Oxygen Delivery Method Room Air Room Air Room Air 11/28/24 08:45 11/28/24 09:00 11/28/24 09:15 Temperature 97.3 F Pulse Rate 79 78 74 Respiratory Rate 16 16 16 Blood Pressure 123/63 128/62 128/60 Pulse Oximetry 96 96 97 Oxygen Delivery Method Room Air Room Air Room Air 11/28/24 09:30 11/28/24 09:45 11/28/24 10:00 Temperature Pulse Rate 74 75 77 Respiratory Rate 16 16 16 Blood Pressure 115/67 127/66 115/59 L Pulse Oximetry 97 98 98 Oxygen Delivery Method Room Air Room Air Room Air 11/28/24 10:15 11/28/24 10:40 11/28/24 20:00 Temperature 96.6 F L 97.5 F Pulse Rate 78 80 80 Respiratory Rate 16 18 16 Blood Pressure 115/68 117/56 L 125/65 Pulse Oximetry 98 99 94 Oxygen Delivery Method Room Air Room Air Room Air BMI result Body Mass Index 28.9 Labs 11/19/24 10:54 11/19/24 10:54 Imaging Radiology Impressions: ITS Impressions KUB X-Ray 10/28/24 16:45 IMPRESSION: Again seen is a large amount of stool throughout the colon and rectum. Electronically signed by: Jose J Gonzalez MD 10/28/2024 05:20 PM EDT Medications Medications Current Medications Acetaminophen (Acetaminophen 325 Mg Tablet) 650 mg PO Q6H PRN PRN Reason: Headache/Pain, Scale 1-10 Last Admin: 11/01/24 20:01 Dose: 650 mg Al Hydroxide/Mg Hydroxide (Magnesium Hydrox/Alum Hydrox 30 Ml Oral.Susp) 30 ml PO Q6H PRN PRN Reason: Heartburn/Nausea Amantadine HCl (Amantadine Hcl 100 Mg Capsule) 100 mg PO DAILY@1700 [facility] Last Admin: 11/28/24 17:18 Dose: 100 mg Aripiprazole (Aripiprazole 10 Mg Tablet) 10 mg PO DAILY@1730 [facility] Last Admin: 11/28/24 17:18 Dose: 10 mg Ascorbic Acid (Ascorbic Acid 500 Mg Tablet) 500 mg PO DAILY [facility] Last Admin: 11/28/24 10:26 Dose: 500 mg Clozapine (Clozapine 100 Mg Tablet) 200 mg PO DAILY@1999 [facility] Last Admin: 11/28/24 20:21 Dose: 200 mg Divalproex Sodium (Divalproex Sodium Sprinkles 125 Mg Cap.) 1,000 mg PO DAILY@1999 [facility] Last Admin: 11/28/24 20:22 Dose: 1,000 mg Ferrous Sulfate (Ferrous Sulfate 324 Mg Tablet.Dr) 324 mg PO DAILY [facility] Last Admin: 11/28/24 10:26 Dose: 324 mg Finasteride (Finasteride 5 Mg Tablet) 5 mg PO DAILY [facility] Last Admin: 11/28/24 10:26 Dose: 5 mg Magnesium Hydroxide (Milk Of Magnesia 30 Ml Oral.Susp) 30 ml PO DAILY PRN PRN Reason: Constipation Magnesium Hydroxide (Milk Of Magnesia 30 Ml Oral.Susp) 5 ml PO BEDTIME [facility] Last Admin: 11/28/24 20:20 Dose: 5 ml Mirtazapine (Mirtazapine 15 Mg Tablet) 15 mg PO BEDTIME [facility] Last Admin: 11/28/24 20:21 Dose: 15 mg Olanzapine (Olanzapine Odt 10 Mg Tab.Rapdis) 5 mg TRANSLINGU BID PRN PRN Reason: agitation Polyethylene Glycol (Polyethylene Glycol 3350 17 Gm Powd.Pack) 17 gm PO DAILY [facility] Last Admin: 11/28/24 10:25 Dose: 17 gm Pramipexole Dihydrochloride (Pramipexole Di-Hcl 0.25 Mg Tablet) 0.5 mg PO TID [facility] Last Admin: 11/28/24 20:21 Dose: 0.5 mg Senna/Docusate Sodium (Sennosides/Docusate Sodium Tablet) 1 tab PO BID PRN PRN Reason: no BM for more than 3days Sertraline HCl (Sertraline Hcl 50 Mg Tablet) 50 mg PO DAILY [facility] Last Admin: 11/28/24 10:26 Dose: 50 mg Sodium Chloride (0.9 % Sodium Chloride Flush 10 Ml Syringe) 10 ml IVFLUSH QSHIFT [facility] Last Admin: 11/28/24 17:18 Dose: 10 ml Tamsulosin HCl (Tamsulosin Hcl 0.4 Mg Capsule) 0.8 mg PO BEDTIME [facility] Last Admin: 11/28/24 20:21 Dose: 0.8 mg Thiamine HCl (Thiamine Hcl 100 Mg Tablet) 100 mg PO DAILY [facility] Last Admin: 11/28/24 10:25 Dose: 100 mg Trazodone HCl (Trazodone Hcl 50 Mg Tablet) 50 mg PO BEDTIME PRN PRN Reason: Insomnia Last Admin: 11/06/24 21:45 Dose: 50 mg Allergies Allergies Allergy/AdvReac Type Severity Reaction Status Date / Time No Known Allergies (NKA) Allergy Unknown NONE Verified 10/27/24 19:26 Assessment & Plan Assessment & Plan (1) Catatonia: Status: Acute Code(s): F06.1 - Catatonic disorder due to known physiological condition (2) Schizoaffective disorder: Status: Acute Code(s): F25.9 - Schizoaffective disorder, unspecified (3) Essential hypertension: Status: Acute Code(s): I10 - Essential (primary) hypertension (4) Urinary retention with incomplete bladder emptying: Status: Acute Code(s): R33.9 - Retention of urine, unspecified Plan 59 year-old male with hx of schizoaffective disorder, hypertension, urinary retention, type 2 diabetes, depression recently discharged from on 10/08/2024 after prolonged admission due to treatment resistant catatonia. He had responded to Ketamine treatment, failed ECT with further complications including aspiration. He presented from [facility] with a change in mental status, he was found wandering in the streets soaked in urine. Depression with decompensation of schizophrenia, catatonia. Status post ketamine treatments, history of ECT with aspiration event Treatment per psych team. Urinary retention/BPH Continue Flomax 0.8mg, Finesteride Dove catheter in place. Follow up urology outpatient Dysphagia Tolerating diet, HOB up. OOB for meals. Mr. 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 He had responded to ketamine treatment, failed ECT with further complications including aspiration. He presents with catatonia again including mutism, waxy flexibility. He had one ketamine treatment since he was discharged from the hospital and only partial dose. He was recommended to do weekly ketamine treatments to prevent catatonia. reports he was taking medications as prescribed. Pending clozapine/norclozapine levels. PLAN 1. Admit to , Sect 12b, 1:1 unsteady gait 2. will check KUB for constipation as pt very poor historian but reports no BM in several days. Will also check bladder scan post void to rule out overflow incontinence due to urinary retention since reports increase incontinence in past few days. Note that he was straight cath while in the ED. 3. restart medications- abilify, sertraline, clozapine, low dose depakote 4. obtain collateral information 5. aftercare panning. 10/29/24 Pt to restart ketamine hcp in effect on 12 b at present 10/30/2024 Patient now on CV by healthcare proxy. Ketamine protocol ordered for the morning the that was previously quite helpful in treating patients catatonia has not responded previously well to lorazepam had only intermittent response to ECT here proxy does not wish ECT treatment and did respond to ketamine Medications continue that previously had been helpful on recent discharge 10/31/2024 Patient given 1st ketamine treatment had respondent previously to a series no change this point. Encourage food and fluids face anxious in appearance mostly mute minimally responsive catatonic symptoms continue. Continue Abilify mirtazapine sertraline Clozaril 150 mg Continue ketamine trial 11/01/2024 Patient remains generally unchanged. Continue clozapine sertraline mirtazapine Abilify 5 mg pramipexole 0.5 t.i.d. part of previous catatonia algorithm. Ketamine scheduled when possible had previously been quite helpful was previously on a 2 week 2 times a week schedule Urinary retention positive urine culture case discussed hospitalist service. Hospitalist consult called. Plan for antibiotics and Dove catheter and then trial without the catheter as possible check electrolytes in the morning may benefit from fluid replacement. Maintain head of the bed elevated supportive nursing care plan to reduce possible congestion 11/02: Continue current regimen and plans 11/03: Continue current plans and regimen Reason for continued inpatient stay 11/05/24 Pt with some imp more alert tolerating ketamine tx needs assist eating walking flat catatonic cont pts catatonia protocal 11/06/2024 Continue plan of care ketamine 11/07/2024 some mild improvement noted continue Monday ketamine treatment 11/07/2024 Patient continues to show improvement from initial catatonia more verbal try to evaluate mood and psychosis. Need clarity why patient was unable to complete outpatient ketamine 11/08/2024 Gradual improvement continues patient able to ambulate independently Dove catheter continues continue ketamine clozapine mirtazapine Abilify 11/09 no change in presentation; continue treatment plan 11/10 Been doing much better today, walking around, talking. He agrees and says he is doing all right.' patient remembers that it was hard for him to talk yesterday but unable to say why. 11/11/2024 Patient has had 2 days of marked improvement unable to explain behavior prior to admission refusing intravenous ketamine what exactly happened home and why he has negative connotations unable to give a clear history regarding this appears to be responding well to continue ketamine increase Depakote 11/12/2024 Will try discontinue Dove catheter and voiding trial. Monitor for cycling change patient appears to be shifting out of catatonia much orozco range of affect future oriented. Ketamine held today scheduled for 821. Continue Abilify clozapine Depakote try and determine lowest schedule for ketamine that maintains patient very little to go by to guide this decision 10/2024 Continue plan of care monitor for martha or confusion ketamine in the morning monitor response to discontinuing Dove 11/14/2024 Patient's some increased anxiety status post ketamine denies psychotic symptoms offered option of lorazepam PRN Will need to evaluate ketamine dosing 11/15/2024 Increase Abilify to 10 mg lower sertraline to 50 mg monitor response question patient overstimulated by antidepressants check Depakote level check ammonia 11/16/24 Continue plan of care check level 11/17/24 Continue to monitor 11/18/2024 Ketamine on hold gradually increase clozapine and Depakote check level 11/19/2024 Patient seems improved orozco affect calmer and more cooperative less irritable. Question adverse reaction to higher dose of sertraline now decreased responding to increased Depakote. Ketamine infusion scheduled for 11/2111/20/2024 Patient continues on prior algorithm for catatonia which includes Abilify clozapine mirtazapine clozapine. He is also on Depakote Depakote level 28.6 ammonia level unremarkable could decrease Depakote monitor response to ketamine see if we can try and discontinue currently 1 time a week monitor for any adverse effect 11/21/24 dep level low can increase ammonia ok can try and see if ketamine could be held 11/22/24 will try amantadine for eps monitor response 11/27/2024 Ketamine in the morning will try half dosing continue amantadine for EPS continue clozapine and Depakote 11/28/2024 Continue plan of care catatonia markedly improved coordinate discharge Informed Consent: further education needed Reason for continued inpatient stay Substantial Risk for: inability to function and rapid decompensation Time Spent With Patient Time: Total time managing care of this patient today ____ minutes.
[2024-11-29 08:30] VITALS: BP 101/68; PULSE 81; RESP 16; TEMP 36.2; O2SAT 98
[2024-11-29] MEDS: Ferrous Sulfate 324 MG TABLET.DR PO (08:36)
[2024-11-29] MEDS: 0.9 % Sodium Chloride Flush 10 ML SYRINGE IVFLUSH ×2 (08:37→16:40)
--- NOTE | 2024-11-29 11:20 | P.PNPSI_ITS ---
Subjective Subjective Date of Service: 11/29/24 Reason For Visit: Catatonia Subjective Notes: Conditional Voluntary Healthcare Proxy: Yes Interim History: Pt with more engagement in milieu superficially pleasant tolerating tx eps has improved Mental Status Exam Mental Status Exam Narrative: Pt smiling good eye contact pov of content mood good affect appropriate no diaz delusional material no si hi . Diagnostics Vital Signs (24Hr): Vital Signs - 24 hr 11/28/24 20:00 Temperature 97.5 F Pulse Rate 80 Respiratory Rate 16 Blood Pressure 125/65 Pulse Oximetry 94 Oxygen Delivery Method Room Air BMI result Body Mass Index 28.9 Labs 11/19/24 10:54 11/19/24 10:54 Imaging Radiology Impressions: ITS Impressions KUB X-Ray 10/28/24 16:45 IMPRESSION: Again seen is a large amount of stool throughout the colon and rectum. Electronically signed by: Jose J Gonzalez MD 10/28/2024 05:20 PM EDT RP Medications Medications Current Medications Acetaminophen (Acetaminophen 325 Mg Tablet) 650 mg PO Q6H PRN PRN Reason: Headache/Pain, Scale 1-10 Last Admin: 11/01/24 20:01 Dose: 650 mg Al Hydroxide/Mg Hydroxide (Magnesium Hydrox/Alum Hydrox 30 Ml Oral.Susp) 30 ml PO Q6H PRN PRN Reason: Heartburn/Nausea Amantadine HCl (Amantadine Hcl 100 Mg Capsule) 100 mg PO DAILY@1700 [facility] Last Admin: 11/28/24 17:18 Dose: 100 mg Aripiprazole (Aripiprazole 10 Mg Tablet) 10 mg PO DAILY@1730 [facility] Last Admin: 11/28/24 17:18 Dose: 10 mg Ascorbic Acid (Ascorbic Acid 500 Mg Tablet) 500 mg PO DAILY [facility] Last Admin: 11/29/24 08:36 Dose: 500 mg Clozapine (Clozapine 100 Mg Tablet) 200 mg PO DAILY@1999 [facility] Last Admin: 11/28/24 20:21 Dose: 200 mg Divalproex Sodium (Divalproex Sodium Sprinkles 125 Mg Cap.) 1,000 mg PO DAILY@1999 [facility] Last Admin: 11/28/24 20:22 Dose: 1,000 mg Ferrous Sulfate (Ferrous Sulfate 324 Mg Tablet.Dr) 324 mg PO DAILY [facility] Last Admin: 11/29/24 08:36 Dose: 324 mg Finasteride (Finasteride 5 Mg Tablet) 5 mg PO DAILY [facility] Last Admin: 11/29/24 08:35 Dose: 5 mg Magnesium Hydroxide (Milk Of Magnesia 30 Ml Oral.Susp) 30 ml PO DAILY PRN PRN Reason: Constipation Magnesium Hydroxide (Milk Of Magnesia 30 Ml Oral.Susp) 5 ml PO BEDTIME [facility] Last Admin: 11/28/24 20:20 Dose: 5 ml Mirtazapine (Mirtazapine 15 Mg Tablet) 15 mg PO BEDTIME [facility] Last Admin: 11/28/24 20:21 Dose: 15 mg Olanzapine (Olanzapine Odt 10 Mg Tab.Rapdis) 5 mg TRANSLINGU BID PRN PRN Reason: agitation Polyethylene Glycol (Polyethylene Glycol 3350 17 Gm Powd.Pack) 17 gm PO DAILY [facility] Last Admin: 11/29/24 08:35 Dose: 17 gm Pramipexole Dihydrochloride (Pramipexole Di-Hcl 0.25 Mg Tablet) 0.5 mg PO TID [facility] Last Admin: 11/29/24 08:36 Dose: 0.5 mg Senna/Docusate Sodium (Sennosides/Docusate Sodium Tablet) 1 tab PO BID PRN PRN Reason: no BM for more than 3days Sertraline HCl (Sertraline Hcl 50 Mg Tablet) 50 mg PO DAILY [facility] Last Admin: 11/29/24 08:37 Dose: 50 mg Sodium Chloride (0.9 % Sodium Chloride Flush 10 Ml Syringe) 10 ml IVFLUSH QSHIFT [facility] Last Admin: 11/29/24 08:37 Dose: 10 ml Tamsulosin HCl (Tamsulosin Hcl 0.4 Mg Capsule) 0.8 mg PO BEDTIME [facility] Last Admin: 11/28/24 20:21 Dose: 0.8 mg Thiamine HCl (Thiamine Hcl 100 Mg Tablet) 100 mg PO DAILY [facility] Last Admin: 11/29/24 08:36 Dose: 100 mg Trazodone HCl (Trazodone Hcl 50 Mg Tablet) 50 mg PO BEDTIME PRN PRN Reason: Insomnia Last Admin: 11/06/24 21:45 Dose: 50 mg Allergies Allergies Allergy/AdvReac Type Severity Reaction Status Date / Time No Known Allergies (NKA) Allergy Unknown NONE Verified 10/27/24 19:26 Assessment & Plan Assessment & Plan (1) Catatonia: Status: Acute Code(s): F06.1 - Catatonic disorder due to known physiological condition (2) Schizoaffective disorder: Status: Acute Code(s): F25.9 - Schizoaffective disorder, unspecified (3) Essential hypertension: Status: Acute Code(s): I10 - Essential (primary) hypertension (4) Urinary retention with incomplete bladder emptying: Status: Acute Code(s): R33.9 - Retention of urine, unspecified Plan 59 year-old male with hx of schizoaffective disorder, hypertension, urinary retention, type 2 diabetes, depression recently discharged from [facility] on 10/08/2024 after prolonged admission due to treatment resistant catatonia. He had responded to Ketamine treatment, failed ECT with further complications including aspiration. He presented from [facility] with a change in mental status, he was found wandering in the streets soaked in urine. Depression with decompensation of schizophrenia, catatonia. Status post ketamine treatments, history of ECT with aspiration event Treatment per psych team. Urinary retention/BPH Continue Flomax 0.8mg, Finesteride Dove catheter in place. Follow up urology outpatient Dysphagia Tolerating diet, HOB up. OOB for meals. Mr. Tenorio is a 59 year-old male with hx of schizoaffective disorder recently discharged from [facility] on 10/08/2024 after prologued admission due to treatment resistant catatonia. He had responded to ketamine treatment, failed ECT with further complications including aspiration. He presents with catatonia again including mutism, waxy flexibility. He had one ketamine treatment since he was discharged from the hospital and only partial dose. He was recommended to do weekly ketamine treatments to prevent catatonia. reports he was taking medications as prescribed. Pending clozapine/norclozapine levels. PLAN 1. Admit to S1, Sect 12b, 1:1 unsteady gait 2. will check KUB for constipation as pt very poor historian but reports no BM in several days. Will also check bladder scan post void to rule out overflow incontinence due to urinary retention since reports increase incontinence in past few days. Note that he was straight cath while in the ED. 3. restart medications- abilify, sertraline, clozapine, low dose depakote 4. obtain collateral information 5. aftercare panning. 10/29/24 Pt to restart ketamine hcp in effect on 12 b at present 10/30/2024 Patient now on CV by healthcare proxy. Ketamine protocol ordered for the morning the that was previously quite helpful in treating patients catatonia has not responded previously well to lorazepam had only intermittent response to ECT here proxy does not wish ECT treatment and did respond to ketamine Medications continue that previously had been helpful on recent discharge 10/31/2024 Patient given 1st ketamine treatment had respondent previously to a series no change this point. Encourage food and fluids face anxious in appearance mostly mute minimally responsive catatonic symptoms continue. Continue Abilify mirtazapine sertraline Clozaril 150 mg Continue ketamine trial 11/01/2024 Patient remains generally unchanged. Continue clozapine sertraline mirtazapine Abilify 5 mg pramipexole 0.5 t.i.d. part of previous catatonia algorithm. Ketamine scheduled when possible had previously been quite helpful was previously on a 2 week 2 times a week schedule Urinary retention positive urine culture case discussed hospitalist service. Hospitalist consult called. Plan for antibiotics and Dove catheter and then trial without the catheter as possible check electrolytes in the morning may benefit from fluid replacement. Maintain head of the bed elevated supportive nursing care plan to reduce possible congestion 11/02: Continue current regimen and plans 11/03: Continue current plans and regimen Reason for continued inpatient stay 11/05/24 Pt with some imp more alert tolerating ketamine tx needs assist eating walking flat catatonic cont pts catatonia protocal 11/06/2024 Continue plan of care ketamine 11/07/2024 some mild improvement noted continue Monday ketamine treatment 11/07/2024 Patient continues to show improvement from initial catatonia more verbal try to evaluate mood and psychosis. Need clarity why patient was unable to complete outpatient ketamine 11/08/2024 Gradual improvement continues patient able to ambulate independently Dove catheter continues continue ketamine clozapine mirtazapine Abilify 11/09 no change in presentation; continue treatment plan 11/10 Been doing much better today, walking around, talking. He agrees and says he is doing all right.' patient remembers that it was hard for him to talk yesterday but unable to say why. 11/11/2024 Patient has had 2 days of marked improvement unable to explain behavior prior to admission refusing intravenous ketamine what exactly happened home and why he has negative connotations unable to give a clear history regarding this appears to be responding well to continue ketamine increase Depakote 11/12/2024 Will try discontinue Dove catheter and voiding trial. Monitor for cycling change patient appears to be shifting out of catatonia much orozco range of affect future oriented. Ketamine held today scheduled for 821. Continue Abilify clozapine Depakote try and determine lowest schedule for ketamine that maintains patient very little to go by to guide this decision 10/2024 Continue plan of care monitor for martha or confusion ketamine in the morning monitor response to discontinuing Dove 11/14/2024 Patient's some increased anxiety status post ketamine denies psychotic symptoms offered option of lorazepam PRN Will need to evaluate ketamine dosing 11/15/2024 Increase Abilify to 10 mg lower sertraline to 50 mg monitor response question patient overstimulated by antidepressants check Depakote level check ammonia 11/16/24 Continue plan of care check level 11/17/24 Continue to monitor 11/18/2024 Ketamine on hold gradually increase clozapine and Depakote check level 11/19/2024 Patient seems improved orozco affect calmer and more cooperative less irritable. Question adverse reaction to higher dose of sertraline now decreased responding to increased Depakote. Ketamine infusion scheduled for 11/2111/20/2024 Patient continues on prior algorithm for catatonia which includes Abilify clozapine mirtazapine clozapine. He is also on Depakote Depakote level 28.6 ammonia level unremarkable could decrease Depakote monitor response to ketamine see if we can try and discontinue currently 1 time a week monitor for any adverse effect 11/21/24 dep level low can increase ammonia ok can try and see if ketamine could be held 11/22/24 will try amantadine for eps monitor response 11/27/2024 Ketamine in the morning will try half dosing continue amantadine for EPS continue clozapine and Depakote 11/28/2024 Continue plan of care catatonia markedly improved coordinate discharge 11/29/24 Pt improved fx less lable cont cloizapine amantadine new for eps Reason for continued inpatient stay Substantial Risk for: inability to function, rapid decompensation and med/psych decompensation Time Spent With Patient Time: Total time managing care of this patient today ____ minutes.
[2024-11-29 20:00] VITALS: BP 133/63; PULSE 79; RESP 18; TEMP 36.5; O2SAT 96
[2024-11-29] MEDS: Divalproex Sodium Sprinkles 125 MG CAP.DR.SPR 1000 MG PO (20:29)
[2024-11-29] MEDS: Milk of Magnesia 30 ML ORAL.SUSP 5 ML PO (20:30)
[2024-11-30] MEDS: 0.9 % Sodium Chloride Flush 10 ML SYRINGE IVFLUSH ×3 (00:12→17:39)
[2024-11-30 08:00] VITALS: BP 132/59; PULSE 83; RESP 16; TEMP 35.8; O2SAT 97
[2024-11-30] MEDS: Ferrous Sulfate 324 MG TABLET.DR PO (09:31)
--- NOTE | 2024-11-30 17:41 | P.PNPSI_ITS ---
Subjective Subjective Date of Service: 11/30/24 Reason For Visit: Catatonia Interim History: Met with patient; discussed with team Check vitals and grossly WNL Nursing reports that patient was irritable today. On approach patient did not want to talk and said I am all set.. Room smelled of urine Mental Status Exam Mental Status Exam Narrative: Pt is alert and oriented; behavior is irritable, marginally cooperative; patient is not in distress; dressed in casual attire, disheveled; mood is described as I am all set and affect constricted; eye contact appropriate; Speech is normal rate, volume and prosody and not pressured; no psychomotor agitation/retardation present; thought process is organized and goal directed; Thought content is not disclosed; no delusional ideations expressed; no SI/HI express. Patients insight and judgment impaired Diagnostics Vital Signs (24Hr): Vital Signs - 24 hr 11/29/24 20:00 11/30/24 08:00 Temperature 97.7 F 96.4 F L Pulse Rate 79 83 Respiratory Rate 18 16 Blood Pressure 133/63 132/59 L Pulse Oximetry 96 97 Oxygen Delivery Method Room Air Room Air BMI result Body Mass Index 28.9 Labs 11/19/24 10:54 11/19/24 10:54 Imaging Radiology Impressions: ITS Impressions KUB X-Ray 10/28/24 16:45 IMPRESSION: Again seen is a large amount of stool throughout the colon and rectum. Electronically signed by: Jose J Gonzalez MD 10/28/2024 05:20 PM EDT RP Medications Medications Current Medications Acetaminophen (Acetaminophen 325 Mg Tablet) 650 mg PO Q6H PRN PRN Reason: Headache/Pain, Scale 1-10 Last Admin: 11/01/24 20:01 Dose: 650 mg Al Hydroxide/Mg Hydroxide (Magnesium Hydrox/Alum Hydrox 30 Ml Oral.Susp) 30 ml PO Q6H PRN PRN Reason: Heartburn/Nausea Amantadine HCl (Amantadine Hcl 100 Mg Capsule) 100 mg PO DAILY@1700 [facility] Last Admin: 11/30/24 17:36 Dose: 100 mg Aripiprazole (Aripiprazole 10 Mg Tablet) 10 mg PO DAILY@1730 [facility] Last Admin: 11/30/24 17:36 Dose: 10 mg Ascorbic Acid (Ascorbic Acid 500 Mg Tablet) 500 mg PO DAILY [facility] Last Admin: 11/30/24 09:31 Dose: 500 mg Clozapine (Clozapine 100 Mg Tablet) 200 mg PO DAILY@1999 [facility] Last Admin: 11/29/24 20:28 Dose: 200 mg Divalproex Sodium (Divalproex Sodium Sprinkles 125 Mg Cap.Dr.Spr) 1,000 mg PO DAILY@1999 [facility] Last Admin: 11/29/24 20:29 Dose: 1,000 mg Ferrous Sulfate (Ferrous Sulfate 324 Mg Tablet.Dr) 324 mg PO DAILY [facility] Last Admin: 11/30/24 09:31 Dose: 324 mg Finasteride (Finasteride 5 Mg Tablet) 5 mg PO DAILY [facility] Last Admin: 11/30/24 09:31 Dose: 5 mg Magnesium Hydroxide (Milk Of Magnesia 30 Ml Oral.Susp) 30 ml PO DAILY PRN PRN Reason: Constipation Magnesium Hydroxide (Milk Of Magnesia 30 Ml Oral.Susp) 5 ml PO BEDTIME [facility] Last Admin: 11/29/24 20:30 Dose: 5 ml Mirtazapine (Mirtazapine 15 Mg Tablet) 15 mg PO BEDTIME [facility] Last Admin: 11/29/24 20:28 Dose: 15 mg Olanzapine (Olanzapine Odt 10 Mg Tab.Rapdis) 5 mg TRANSLINGU BID PRN PRN Reason: agitation Polyethylene Glycol (Polyethylene Glycol 3350 17 Gm Powd.Pack) 17 gm PO DAILY [facility] Last Admin: 11/30/24 09:31 Dose: 17 gm Pramipexole Dihydrochloride (Pramipexole Di-Hcl 0.25 Mg Tablet) 0.5 mg PO TID [facility] Last Admin: 11/30/24 17:36 Dose: 0.5 mg Senna/Docusate Sodium (Sennosides/Docusate Sodium Tablet) 1 tab PO BID PRN PRN Reason: no BM for more than 3days Sertraline HCl (Sertraline Hcl 50 Mg Tablet) 50 mg PO DAILY [facility] Last Admin: 11/30/24 09:31 Dose: 50 mg Sodium Chloride (0.9 % Sodium Chloride Flush 10 Ml Syringe) 10 ml IVFLUSH QSHIFT [facility] Last Admin: 11/30/24 17:39 Dose: 10 ml Tamsulosin HCl (Tamsulosin Hcl 0.4 Mg Capsule) 0.8 mg PO BEDTIME [facility] Last Admin: 11/29/24 20:28 Dose: 0.8 mg Thiamine HCl (Thiamine Hcl 100 Mg Tablet) 100 mg PO DAILY [facility] Last Admin: 11/30/24 09:31 Dose: 100 mg Trazodone HCl (Trazodone Hcl 50 Mg Tablet) 50 mg PO BEDTIME PRN PRN Reason: Insomnia Last Admin: 11/06/24 21:45 Dose: 50 mg Allergies Allergies Allergy/AdvReac Type Severity Reaction Status Date / Time No Known Allergies (NKA) Allergy Unknown NONE Verified 10/27/24 19:26 Assessment & Plan Assessment & Plan (1) Catatonia: Status: Acute Code(s): F06.1 - Catatonic disorder due to known physiological condition (2) Schizoaffective disorder: Status: Acute Code(s): F25.9 - Schizoaffective disorder, unspecified (3) Essential hypertension: Status: Acute Code(s): I10 - Essential (primary) hypertension (4) Urinary retention with incomplete bladder emptying: Status: Acute Code(s): R33.9 - Retention of urine, unspecified Plan 59 year-old male with hx of schizoaffective disorder, hypertension, urinary retention, type 2 diabetes, depression recently discharged from on 10/08/2024 after prolonged admission due to treatment resistant catatonia. He had responded to Ketamine treatment, failed ECT with further complications including aspiration. He presented from [facility] with a change in mental status, he was found wandering in the streets soaked in urine. Depression with decompensation of schizophrenia, catatonia. Status post ketamine treatments, history of ECT with aspiration event Treatment per psych team. Urinary retention/BPH Continue Flomax 0.8mg, Finesteride Dove catheter in place. Follow up urology outpatient Dysphagia Tolerating diet, HOB up. OOB for meals. Mr. 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 He had responded to ketamine treatment, failed ECT with further complications including aspiration. He presents with catatonia again including mutism, waxy flexibility. He had one ketamine treatment since he was discharged from the hospital and only partial dose. He was recommended to do weekly ketamine treatments to prevent catatonia. reports he was taking medications as prescribed. Pending clozapine/norclozapine levels. PLAN 1. Admit to S1, Sect 12b, 1:1 unsteady gait 2. will check KUB for constipation as pt very poor historian but reports no BM in several days. Will also check bladder scan post void to rule out overflow incontinence due to urinary retention since reports increase incontinence in past few days. Note that he was straight cath while in the ED. 3. restart medications- abilify, sertraline, clozapine, low dose depakote 4. obtain collateral information 5. aftercare panning. 10/29/24 Pt to restart ketamine hcp in effect on 12 b at present 10/30/2024 Patient now on CV by healthcare proxy. Ketamine protocol ordered for the morning the that was previously quite helpful in treating patients catatonia has not responded previously well to lorazepam had only intermittent response to ECT here proxy does not wish ECT treatment and did respond to ketamine Medications continue that previously had been helpful on recent discharge 10/31/2024 Patient given 1st ketamine treatment had respondent previously to a series no change this point. Encourage food and fluids face anxious in appearance mostly mute minimally responsive catatonic symptoms continue. Continue Abilify mirtazapine sertraline Clozaril 150 mg Continue ketamine trial 11/01/2024 Patient remains generally unchanged. Continue clozapine sertraline mirtazapine Abilify 5 mg pramipexole 0.5 t.i.d. part of previous catatonia algorithm. Ketamine scheduled when possible had previously been quite helpful was previously on a 2 week 2 times a week schedule Urinary retention positive urine culture case discussed hospitalist service. Hospitalist consult called. Plan for antibiotics and Dove catheter and then trial without the catheter as possible check electrolytes in the morning may benefit from fluid replacement. Maintain head of the bed elevated supportive nursing care plan to reduce possible congestion 11/02: Continue current regimen and plans 11/03: Continue current plans and regimen Reason for continued inpatient stay 11/05/24 Pt with some imp more alert tolerating ketamine tx needs assist eating walking flat catatonic cont pts catatonia protocal 11/06/2024 Continue plan of care ketamine 11/07/2024 some mild improvement noted continue Monday ketamine treatment 11/07/2024 Patient continues to show improvement from initial catatonia more verbal try to evaluate mood and psychosis. Need clarity why patient was unable to complete outpatient ketamine 11/08/2024 Gradual improvement continues patient able to ambulate independently Dove catheter continues continue ketamine clozapine mirtazapine Abilify 11/09 no change in presentation; continue treatment plan 11/10 Been doing much better today, walking around, talking. He agrees and says he is doing all right.' patient remembers that it was hard for him to talk yesterday but unable to say why. 11/11/2024 Patient has had 2 days of marked improvement unable to explain behavior prior to admission refusing intravenous ketamine what exactly happened home and why he has negative connotations unable to give a clear history regarding this appears to be responding well to continue ketamine increase Depakote 11/12/2024 Will try discontinue Dove catheter and voiding trial. Monitor for cycling change patient appears to be shifting out of catatonia much orozco range of affect future oriented. Ketamine held today scheduled for 821. Continue Abilify clozapine Depakote try and determine lowest schedule for ketamine that maintains patient very little to go by to guide this decision 10/2024 Continue plan of care monitor for martha or confusion ketamine in the morning monitor response to discontinuing Dove 11/14/2024 Patient's some increased anxiety status post ketamine denies psychotic symptoms offered option of lorazepam PRN Will need to evaluate ketamine dosing 11/15/2024 Increase Abilify to 10 mg lower sertraline to 50 mg monitor response question patient overstimulated by antidepressants check Depakote level check ammonia 11/16/24 Continue plan of care check level 11/17/24 Continue to monitor 11/18/2024 Ketamine on hold gradually increase clozapine and Depakote check level 11/19/2024 Patient seems improved orozco affect calmer and more cooperative less irritable. Question adverse reaction to higher dose of sertraline now decreased responding to increased Depakote. Ketamine infusion scheduled for 11/2111/20/2024 Patient continues on prior algorithm for catatonia which includes Abilify clozapine mirtazapine clozapine. He is also on Depakote Depakote level 28.6 ammonia level unremarkable could decrease Depakote monitor response to ketamine see if we can try and discontinue currently 1 time a week monitor for any adverse effect 11/21/24 dep level low can increase ammonia ok can try and see if ketamine could be held 11/22/24 will try amantadine for eps monitor response 11/27/2024 Ketamine in the morning will try half dosing continue amantadine for EPS continue clozapine and Depakote 11/28/2024 Continue plan of care catatonia markedly improved coordinate discharge 11/29/24 Pt improved fx less lable cont cloizapine amantadine new for eps 11/30 Checked vitals and grossly WNL Nursing reports that patient was irritable today. On approach patient did not want to talk and said I am all set.. Room smelled of urine Patient educated on: diagnosis Informed Consent: understands Reason for continued inpatient stay Substantial Risk for: rapid decompensation Time Spent With Patient Time: Total time managing care of this patient today ____ minutes.
[2024-11-30 20:00] VITALS: BP 132/69; PULSE 79; RESP 18; TEMP 37; O2SAT 96
[2024-11-30] MEDS: Milk of Magnesia 30 ML ORAL.SUSP 5 ML PO (20:55)
[2024-11-30] MEDS: Divalproex Sodium Sprinkles 125 MG CAP.DR.SPR 1000 MG PO (20:55)
[2024-12-01] MEDS: 0.9 % Sodium Chloride Flush 10 ML SYRINGE IVFLUSH ×2 (02:07→17:17)
[2024-12-01 08:00] VITALS: RESP 16
[2024-12-01] MEDS: OLANZapine ODT 10 MG TAB.RAPDIS 5 MG TRANSLINGU (08:14)
[2024-12-01] MEDS: Ferrous Sulfate 324 MG TABLET.DR PO (08:15)
--- NOTE | 2024-12-01 17:12 | HO.PSYCHPN ---
Subjective Subjective Date of Service: 12/01/24 Reason For Visit: Catatonia Interim History: Met with patient; discussed with team Is quite irritable; today patient got kicked out of OT group which is a 1st. On approach patient said that he is all right and acknowledges that he got angry but does not want to talk about it Mental Status Exam Mental Status Exam Narrative: Pt is alert and oriented; behavior is irritable, marginally cooperative; patient is not in distress; dressed in casual attire, disheveled; mood is described as Alright and affect constricted; eye contact appropriate; Speech is normal rate, volume and prosody and not pressured; no psychomotor agitation/retardation present; thought process is organized and goal directed; Thought content is not disclosed; no delusional ideations expressed; no SI/HI express. Patients insight and judgment impaired Diagnostics Vital Signs (24Hr): Vital Signs - 24 hr 11/30/24 20:00 12/01/24 08:00 Temperature 98.6 F Pulse Rate 79 Respiratory Rate 18 16 Blood Pressure 132/69 Pulse Oximetry 96 Oxygen Delivery Method Room Air BMI result Body Mass Index 28.9 Labs 11/19/24 10:54 11/19/24 10:54 Imaging Radiology Impressions: ITS Impressions KUB X-Ray 10/28/24 16:45 IMPRESSION: Again seen is a large amount of stool throughout the colon and rectum. Electronically signed by: Jose J Gonzalez MD 10/28/2024 05:20 PM EDT Medications Medications Current Medications Acetaminophen (Acetaminophen 325 Mg Tablet) 650 mg PO Q6H PRN PRN Reason: Headache/Pain, Scale 1-10 Last Admin: 11/01/24 20:01 Dose: 650 mg Al Hydroxide/Mg Hydroxide (Magnesium Hydrox/Alum Hydrox 30 Ml Oral.Susp) 30 ml PO Q6H PRN PRN Reason: Heartburn/Nausea Amantadine HCl (Amantadine Hcl 100 Mg Capsule) 100 mg PO DAILY@1700 [facility] Last Admin: 11/30/24 17:36 Dose: 100 mg Aripiprazole (Aripiprazole 10 Mg Tablet) 10 mg PO DAILY@1730 [facility] Last Admin: 11/30/24 17:36 Dose: 10 mg Ascorbic Acid (Ascorbic Acid 500 Mg Tablet) 500 mg PO DAILY [facility] Last Admin: 12/01/24 08:14 Dose: 500 mg Clozapine (Clozapine 100 Mg Tablet) 200 mg PO DAILY@1999 [facility] Last Admin: 11/30/24 20:54 Dose: 200 mg Divalproex Sodium (Divalproex Sodium Sprinkles 125 Mg Cap.) 1,000 mg PO DAILY@1999 [facility] Last Admin: 11/30/24 20:55 Dose: 1,000 mg Ferrous Sulfate (Ferrous Sulfate 324 Mg Tablet.Dr) 324 mg PO DAILY [facility] Last Admin: 12/01/24 08:15 Dose: 324 mg Finasteride (Finasteride 5 Mg Tablet) 5 mg PO DAILY [facility] Last Admin: 12/01/24 08:14 Dose: 5 mg Lorazepam (Lorazepam 1 Mg Tablet) 1 mg PO TID PRN PRN Reason: irritable agitation Stop: 12/02/24 23:00 Last Admin: 12/01/24 14:03 Dose: 1 mg Magnesium Hydroxide (Milk Of Magnesia 30 Ml Oral.Susp) 30 ml PO DAILY PRN PRN Reason: Constipation Magnesium Hydroxide (Milk Of Magnesia 30 Ml Oral.Susp) 5 ml PO BEDTIME [facility] Last Admin: 11/30/24 20:55 Dose: 5 ml Mirtazapine (Mirtazapine 15 Mg Tablet) 15 mg PO BEDTIME [facility] Last Admin: 11/30/24 20:55 Dose: 15 mg Olanzapine (Olanzapine Odt 10 Mg Tab.Rapdis) 5 mg TRANSLINGU BID PRN PRN Reason: agitation Last Admin: 12/01/24 08:14 Dose: 5 mg Polyethylene Glycol (Polyethylene Glycol 3350 17 Gm Powd.Pack) 17 gm PO DAILY [facility] Last Admin: 12/01/24 08:14 Dose: 17 gm Pramipexole Dihydrochloride (Pramipexole Di-Hcl 0.25 Mg Tablet) 0.5 mg PO TID [facility] Last Admin: 12/01/24 14:03 Dose: 0.5 mg Senna/Docusate Sodium (Sennosides/Docusate Sodium Tablet) 1 tab PO BID PRN PRN Reason: no BM for more than 3days Sertraline HCl (Sertraline Hcl 50 Mg Tablet) 50 mg PO DAILY [facility] Last Admin: 12/01/24 08:14 Dose: 50 mg Sodium Chloride (0.9 % Sodium Chloride Flush 10 Ml Syringe) 10 [facility] Last Admin: 12/01/24 10:57 Dose: Not Given Tamsulosin HCl (Tamsulosin Hcl 0.4 Mg Capsule) 0.8 mg PO BEDTIME [facility] Last Admin: 11/30/24 20:55 Dose: 0.8 mg Thiamine HCl (Thiamine Hcl 100 Mg Tablet) 100 mg PO DAILY [facility] Last Admin: 12/01/24 08:14 Dose: 100 mg Trazodone HCl (Trazodone Hcl 50 Mg Tablet) 50 mg PO BEDTIME PRN PRN Reason: Insomnia Last Admin: 11/06/24 21:45 Dose: 50 mg Allergies Allergies Allergy/AdvReac Type Severity Reaction Status Date / Time No Known Allergies (NKA) Allergy Unknown NONE Verified 10/27/24 19:26 Assessment & Plan Assessment & Plan (1) Catatonia: Status: Acute Code(s): F06.1 - Catatonic disorder due to known physiological condition (2) Schizoaffective disorder: Status: Acute Code(s): F25.9 - Schizoaffective disorder, unspecified (3) Essential hypertension: Status: Acute Code(s): I10 - Essential (primary) hypertension (4) Urinary retention with incomplete bladder emptying: Status: Acute Code(s): R33.9 - Retention of urine, unspecified Plan 59 year-old male with hx of schizoaffective disorder, hypertension, urinary retention, type 2 diabetes, depression recently discharged from on 10/08/2024 after prolonged admission due to treatment resistant catatonia. He had responded to Ketamine treatment, failed ECT with further complications including aspiration. He presented from jail with a change in mental status, he was found wandering in the streets soaked in urine. Depression with decompensation of schizophrenia, catatonia. Status post ketamine treatments, history of ECT with aspiration event Treatment per psych team. Urinary retention/BPH Continue Flomax 0.8mg, Finesteride Dove catheter in place. Follow up urology outpatient Dysphagia Tolerating diet, HOB up. OOB for meals. Mr. 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 He had responded to ketamine treatment, failed ECT with further complications including aspiration. He presents with catatonia again including mutism, waxy flexibility. He had one ketamine treatment since he was discharged from the hospital and only partial dose. He was recommended to do weekly ketamine treatments to prevent catatonia. reports he was taking medications as prescribed. Pending clozapine/norclozapine levels. PLAN 1. Admit to S1, Sect 12b, 1:1 unsteady gait 2. will check KUB for constipation as pt very poor historian but reports no BM in several days. Will also check bladder scan post void to rule out overflow incontinence due to urinary retention since reports increase incontinence in past few days. Note that he was straight cath while in the ED. 3. restart medications- abilify, sertraline, clozapine, low dose depakote 4. obtain collateral information 5. aftercare panning. 10/29/24 Pt to restart ketamine hcp in effect on 12 b at present 10/30/2024 Patient now on CV by healthcare proxy. Ketamine protocol ordered for the morning the that was previously quite helpful in treating patients catatonia has not responded previously well to lorazepam had only intermittent response to ECT here proxy does not wish ECT treatment and did respond to ketamine Medications continue that previously had been helpful on recent discharge 10/31/2024 Patient given 1st ketamine treatment had respondent previously to a series no change this point. Encourage food and fluids face anxious in appearance mostly mute minimally responsive catatonic symptoms continue. Continue Abilify mirtazapine sertraline Clozaril 150 mg Continue ketamine trial 11/01/2024 Patient remains generally unchanged. Continue clozapine sertraline mirtazapine Abilify 5 mg pramipexole 0.5 t.i.d. part of previous catatonia algorithm. Ketamine scheduled when possible had previously been quite helpful was previously on a 2 week 2 times a week schedule Urinary retention positive urine culture case discussed hospitalist service. Hospitalist consult called. Plan for antibiotics and Dove catheter and then trial without the catheter as possible check electrolytes in the morning may benefit from fluid replacement. Maintain head of the bed elevated supportive nursing care plan to reduce possible congestion 11/02: Continue current regimen and plans 11/03: Continue current plans and regimen Reason for continued inpatient stay 11/05/24 Pt with some imp more alert tolerating ketamine tx needs assist eating walking flat catatonic cont pts catatonia protocal 11/06/2024 Continue plan of care ketamine 11/07/2024 some mild improvement noted continue Monday ketamine treatment 11/07/2024 Patient continues to show improvement from initial catatonia more verbal try to evaluate mood and psychosis. Need clarity why patient was unable to complete outpatient ketamine 11/08/2024 Gradual improvement continues patient able to ambulate independently Dove catheter continues continue ketamine clozapine mirtazapine Abilify 11/09 no change in presentation; continue treatment plan 11/10 Been doing much better today, walking around, talking. He agrees and says he is doing all right.' patient remembers that it was hard for him to talk yesterday but unable to say why. 11/11/2024 Patient has had 2 days of marked improvement unable to explain behavior prior to admission refusing intravenous ketamine what exactly happened home and why he has negative connotations unable to give a clear history regarding this appears to be responding well to continue ketamine increase Depakote 11/12/2024 Will try discontinue Dove catheter and voiding trial. Monitor for cycling change patient appears to be shifting out of catatonia much orozco range of affect future oriented. Ketamine held today scheduled for 821. Continue Abilify clozapine Depakote try and determine lowest schedule for ketamine that maintains patient very little to go by to guide this decision 10/2024 Continue plan of care monitor for martha or confusion ketamine in the morning monitor response to discontinuing Dove 11/14/2024 Patient's some increased anxiety status post ketamine denies psychotic symptoms offered option of lorazepam PRN Will need to evaluate ketamine dosing 11/15/2024 Increase Abilify to 10 mg lower sertraline to 50 mg monitor response question patient overstimulated by antidepressants check Depakote level check ammonia 11/16/24 Continue plan of care check level 11/17/24 Continue to monitor 11/18/2024 Ketamine on hold gradually increase clozapine and Depakote check level 11/19/2024 Patient seems improved orozco affect calmer and more cooperative less irritable. Question adverse reaction to higher dose of sertraline now decreased responding to increased Depakote. Ketamine infusion scheduled for 11/2111/20/2024 Patient continues on prior algorithm for catatonia which includes Abilify clozapine mirtazapine clozapine. He is also on Depakote Depakote level 28.6 ammonia level unremarkable could decrease Depakote monitor response to ketamine see if we can try and discontinue currently 1 time a week monitor for any adverse effect 11/21/24 dep level low can increase ammonia ok can try and see if ketamine could be held 11/22/24 will try amantadine for eps monitor response 11/27/2024 Ketamine in the morning will try half dosing continue amantadine for EPS continue clozapine and Depakote 11/28/2024 Continue plan of care catatonia markedly improved coordinate discharge 11/29/24 Pt improved fx less lable cont cloizapine amantadine new for eps 11/30 Checked vitals and grossly WNL Nursing reports that patient was irritable today. On approach patient did not want to talk and said I am all set.. Room smelled of urine 12/01 Is quite irritable; today patient got kicked out of OT group which is a 1st. On approach patient said that he is all right and acknowledges that he got angry but does not want to talk about it -ordered p.r.n. Ativan which is helped in the past following ketamine -ordered UA Patient educated on: diagnosis and therapeutic strategies Informed Consent: understands and further education needed Reason for continued inpatient stay Substantial Risk for: inability to function Time Spent With Patient Time: Total time managing care of this patient today ____ minutes.
--- NOTE | 2024-12-01 18:35 | PC.NURSE ---
Pt with large palm sized erythematous patch with raised edges to left buttock extending into cleft of buttocks. Pt denies itching, but there are scratch johns noted. Pt denies pain to area. Provider car conditioner notified.
[2024-12-01 20:00] VITALS: BP 132/65; PULSE 72; RESP 16; TEMP 36.4; O2SAT 96
[2024-12-01] MEDS: Milk of Magnesia 30 ML ORAL.SUSP 5 ML PO (20:57)
[2024-12-01] MEDS: Divalproex Sodium Sprinkles 125 MG CAP.DR.SPR 1000 MG PO (21:52)
[2024-12-02] MEDS: 0.9 % Sodium Chloride Flush 10 ML SYRINGE IVFLUSH ×4 (02:43→20:18)
[2024-12-02 07:12] LABS: Appearance Urine Clear; Glucose Urine UA Negative (Negative); PH 6.5 (5.0-9.0); Specific Gravity - Urine 1.015 (1.005-1.025)
[2024-12-02 08:00] VITALS: BP 122/62; PULSE 71; RESP 16; TEMP 36.3; O2SAT 97
--- NOTE | 2024-12-02 08:25 | HO.PM.IMCN ---
History of Present Illness Data of Consult Service Date: 12/02/24 Primary Care Provider: Unknown Physician HPI Reason for consult: Rash 59 year old male with PMH schizoaffective DO, HTN, urinary retention, Type 2 DM, depression admitted to [facility] for further care after being found wandering, soaked in urine. Patient is currently being treated with Ketamine and has a midline placed to right upper arm on 11/06/2023. Patient is being seen today for a rsh on his buttocks. Patient denies any pain or itching to area. No warmth or drainage. Patient is alert, answers yes, no questions. When asked how he feels he responds, : I don't know . Patient with recent behavior disruption and a UA performed is negative. He is laying in bed in NAD. Eating and drinking per staff. Review of Systems Review of Systems: He denies SOB, CP, abdominal pain. [facility] Medical History Tardive dyskinesia Hospital discharge follow-up Mild sleep apnea Nocturnal hypoxia Routine medical exam Joint inflammation of right hand and wrist Status post fall Adult general medical exam Screening for colon cancer Screening for prostate cancer Cough BPH (benign prostatic hyperplasia) Family History Mother Cancer Father Kidney agenesis Surgical History History of colonoscopy (~06/15/21) History of tooth extraction History of root canal procedure Social History Household Members: Other Household Members Other:: Medical based residential Caregiver staying overnight: Yes Housing: Other Housing Other:: Medical based residential Are you a primary child caregiver to a significant other at home: No Do you presently have visiting nurse or other home services: Yes ([facility]NA, [place], VNA with [facility]) Unable to assess alcohol history related to: Unable to respond Alcohol intake: former Comment: 1:1 Patient Tobacco Use Status: Never used Tobacco e-Cigarette/Vaping Use: Never Used Second Hand Smoke Exposure: No service: No Current occupational status: employed Sexual orientation: Straight/Heterosexual Cognitive needs: No Hearing needs: No Vision needs: No Meds Allergies Allergy/AdvReac Type Severity Reaction Status Date / Time No Known Allergies (NKA) Allergy Unknown NONE Verified 10/27/24 19:26 Active Medications: Current Medications Acetaminophen (Acetaminophen 325 Mg Tablet) 650 mg PO Q6H PRN PRN Reason: Headache/Pain, Scale 1-10 Last Admin: 11/01/24 20:01 Dose: 650 mg Al Hydroxide/Mg Hydroxide (Magnesium Hydrox/Alum Hydrox 30 Ml Oral.Susp) 30 ml PO Q6H PRN PRN Reason: Heartburn/Nausea Amantadine HCl (Amantadine Hcl 100 Mg Capsule) 100 mg PO DAILY@1700 [facility] Last Admin: 12/01/24 17:17 Dose: 100 mg Aripiprazole (Aripiprazole 10 Mg Tablet) 10 mg PO DAILY@1730 [facility] Last Admin: 12/01/24 17:17 Dose: 10 mg Ascorbic Acid (Ascorbic Acid 500 Mg Tablet) 500 mg PO DAILY [facility] Last Admin: 12/01/24 08:14 Dose: 500 mg Clozapine (Clozapine 100 Mg Tablet) 200 mg PO DAILY@1999 [facility] Last Admin: 12/01/24 21:53 Dose: 200 mg Divalproex Sodium (Divalproex Sodium Sprinkles 125 Mg Cap.) 1,000 mg PO DAILY@1999 [facility] Last Admin: 12/01/24 21:52 Dose: 1,000 mg Ferrous Sulfate (Ferrous Sulfate 324 Mg Tablet.) 324 mg PO DAILY [facility] Last Admin: 12/01/24 08:15 Dose: 324 mg Finasteride (Finasteride 5 Mg Tablet) 5 mg PO DAILY [facility] Last Admin: 12/01/24 08:14 Dose: 5 mg Lorazepam (Lorazepam 1 Mg Tablet) 1 mg PO TID PRN PRN Reason: irritable agitation Stop: 12/02/24 23:00 Last Admin: 12/01/24 14:03 Dose: 1 mg Magnesium Hydroxide (Milk Of Magnesia 30 Ml Oral.Susp) 30 ml PO DAILY PRN PRN Reason: Constipation Magnesium Hydroxide (Milk Of Magnesia 30 Ml Oral.Susp) 5 ml PO BEDTIME [facility] Last Admin: 12/01/24 20:57 Dose: 5 ml Mirtazapine (Mirtazapine 15 Mg Tablet) 15 mg PO BEDTIME [facility] Last Admin: 12/01/24 20:56 Dose: 15 mg Nystatin (Nystatin Powder 15 Gm Bottle) 1 appl TOPICAL BID [facility]; Protocol Last Admin: 12/01/24 23:56 Dose: Not Given Olanzapine (Olanzapine Odt 10 Mg Tab.Rapdis) 5 mg TRANSLINGU BID PRN PRN Reason: agitation Last Admin: 12/01/24 08:14 Dose: 5 mg Polyethylene Glycol (Polyethylene Glycol 3350 17 Gm Powd.Pack) 17 gm PO DAILY [facility] Last Admin: 12/01/24 08:14 Dose: 17 gm Pramipexole Dihydrochloride (Pramipexole Di-Hcl 0.25 Mg Tablet) 0.5 mg PO TID [facility] Last Admin: 12/01/24 20:56 Dose: 0.5 mg Senna/Docusate Sodium (Sennosides/Docusate Sodium Tablet) 1 tab PO BID PRN PRN Reason: no BM for more than 3days Sertraline HCl (Sertraline Hcl 50 Mg Tablet) 50 mg PO DAILY [facility] Last Admin: 12/01/24 08:14 Dose: 50 mg Sodium Chloride (0.9 % Sodium Chloride Flush 10 Ml Syringe) 10 ml IVFLUSH QSHIFT [facility] Last Admin: 12/02/24 02:43 Dose: 10 ml Tamsulosin HCl (Tamsulosin Hcl 0.4 Mg Capsule) 0.8 mg PO BEDTIME [facility] Last Admin: 12/01/24 20:56 Dose: 0.8 mg Thiamine HCl (Thiamine Hcl 100 Mg Tablet) 100 mg PO DAILY [facility] Last Admin: 12/01/24 08:14 Dose: 100 mg Trazodone HCl (Trazodone Hcl 50 Mg Tablet) 50 mg PO BEDTIME PRN PRN Reason: Insomnia Last Admin: 11/06/24 21:45 Dose: 50 mg Physical Exam Vital Signs and Narrative: Vital Signs: Last Vital Signs Temp 97.5 F 12/01/24 20:00 Pulse 72 12/01/24 20:00 Resp 16 12/01/24 20:00 BP 132/65 12/01/24 20:00 Pulse Ox 96 12/01/24 20:00 O2 Del Method Room Air 12/01/24 20:00 O2 Flow Rate 2 11/05/24 09:45 BMI result Body Mass Index 28.9 CONST: Alert and oriented, in NAD. Well nourished HEENT: Normocephalic, atraumatic, MMM, Eyes clear, Neck supple RESP: Lungs clear, RRR even and regular HEART:,RRR, S1, S2. no edema GI:Abdomen Soft NT, ND. + BS times four :Deferred SKIN: Warm dry and intact, patchy red rash to left buttock. No drainage. no warmth NEURO:CN II-XII Intact bilaterally, Sensation intact. Speech clear PSYCH: Flat affect, answers 1-2 answers Results Labs 11/19/24 10:54 11/19/24 10:54 Labs: Laboratory Results - last 24 hr 12/02/24 Unknown Urine Color Yellow Urine Appearance Clear Urine pH 6.5 Ur Specific [place] 1.015 Urine Protein Negative Urine Glucose (UA) Negative Urine Ketones Negative Urine Blood Negative Urine Nitrite Negative Ur Leukocyte Esterase Negative Urine RBC 0-2 Urine WBC 0-5 Ur Squamous Epith Cells 0-2 Urine Bacteria None Seen Hyaline Casts 0-2 Assessment and Plan (1) Schizoaffective disorder: Status: Acute Plan Schizoaffective DO/Depression with decompensation /Catatonia Treatment per psychiatric team Currently receiving Ketamine treatments. Plan is most likely alf ketamine treatments Will need alternative IV access. Patient with poor venous access. Consider PICC line or port. Fungal rash to left buttock Triamcinolone cream BID until clear. Urinary retention/BPH Continue Flomax Monitor for retention. Recent UA negative. Dysphagia Tolerating diet, HOB up. OOB for meals. Thank you for allowing me to participate in the care of this patient. Will follow as needed. Please reconsult of any acute concerns or issues arise
[2024-12-02] MEDS: Ferrous Sulfate 324 MG TABLET.DR PO (09:23)
--- NOTE | 2024-12-02 15:02 | P.PNPSI_ITS ---
Subjective Subjective Date of Service: 12/02/24 Reason For Visit: Catatonia Subjective Notes: Conditional Voluntary Healthcare Proxy: Yes Interim History: Patient unfortunately has been increasingly reactive irritable and depressed more withdrawn with some catatonia spectrum symptoms Mental Status Exam Mental Status Exam Narrative: Pt is alert and oriented; behavior is irritable withdrawn spending much of the day in bed disheveled; mood is described as depressed ; poverty of content becomes upset when asked about hallucinations clear thought blocking Thought content is not disclosed; no delusional ideations expressed but not forthcoming; no SI/HI express. Psychomotor retarded Patients insight and judgment impaired Diagnostics Vital Signs (24Hr): Vital Signs - 24 hr 12/01/24 20:00 12/02/24 08:00 Temperature 97.5 F 97.3 F Pulse Rate 72 71 Respiratory Rate 16 16 Blood Pressure 132/65 122/62 Pulse Oximetry 96 97 Oxygen Delivery Method Room Air Room Air BMI result Body Mass Index 28.9 Labs 11/19/24 10:54 11/19/24 10:54 Labs: Laboratory Results - last 48 hr 12/02/24 Unknown Urine Color Yellow Urine Appearance Clear Urine pH 6.5 Ur Specific [place] 1.015 Urine Protein Negative Urine Glucose (UA) Negative Urine Ketones Negative Urine Blood Negative Urine Nitrite Negative Ur Leukocyte Esterase Negative Urine RBC 0-2 Urine WBC 0-5 Ur Squamous Epith Cells 0-2 Urine Bacteria None Seen Hyaline Casts 0-2 Imaging Radiology Impressions: ITS Impressions KUB X-Ray 10/28/24 16:45 IMPRESSION: Again seen is a large amount of stool throughout the colon and rectum. Electronically signed by: Jose J Gonzalez MD 10/28/2024 05:20 PM EDT Medications Medications Current Medications Acetaminophen (Acetaminophen 325 Mg Tablet) 650 mg PO Q6H PRN PRN Reason: Headache/Pain, Scale 1-10 Last Admin: 11/01/24 20:01 Dose: 650 mg Al Hydroxide/Mg Hydroxide (Magnesium Hydrox/Alum Hydrox 30 Ml Oral.Susp) 30 ml PO Q6H PRN PRN Reason: Heartburn/Nausea Aripiprazole (Aripiprazole 10 Mg Tablet) 10 mg PO DAILY@1730 [facility] [place] Last Admin: 12/01/24 17:17 Dose: 10 mg Ascorbic Acid (Ascorbic Acid 500 Mg Tablet) 500 mg PO DAILY [facility] [place] Last Admin: 12/02/24 09:23 Dose: 500 mg Clozapine (Clozapine 25 Mg Tablet) 225 mg PO DAILY@1999 [facility] [place] Divalproex Sodium (Divalproex Sodium Sprinkles 125 Mg Cap) 1,000 mg PO DAILY@1999 [facility] [place] Last Admin: 12/01/24 21:52 Dose: 1,000 mg Ferrous Sulfate (Ferrous Sulfate 324 Mg Tablet.) 324 mg PO DAILY [facility] [place] Last Admin: 12/02/24 09:23 Dose: 324 mg Finasteride (Finasteride 5 Mg Tablet) 5 mg PO DAILY [facility] [place] Last Admin: 12/02/24 09:23 Dose: 5 mg Ketamine HCl 45 mg/ Sodium (Chloride) 45 mls @ 45 mls/hr IV ONCE ONE Stop: 12/03/24 08:29 Lorazepam (Lorazepam 1 Mg Tablet) 1 mg PO TID PRN PRN Reason: irritable agitation Stop: 12/02/24 23:00 Last Admin: 12/01/24 14:03 Dose: 1 mg Magnesium Hydroxide (Milk Of Magnesia 30 Ml Oral.Susp) 30 ml PO DAILY PRN PRN Reason: Constipation Magnesium Hydroxide (Milk Of Magnesia 30 Ml Oral.Susp) 5 ml PO BEDTIME [facility] [place] Last Admin: 12/01/24 20:57 Dose: 5 ml Mirtazapine (Mirtazapine 15 Mg Tablet) 15 mg PO BEDTIME [facility] [place] Last Admin: 12/01/24 20:56 Dose: 15 mg Nystatin (Nystatin Powder 15 Gm Bottle) 1 appl TOPICAL BID [facility] [place]; Protocol Last Admin: 12/02/24 12:42 Dose: 1 appl Olanzapine (Olanzapine Odt 10 Mg Tab.Rapdis) 5 mg TRANSLINGU BID PRN PRN Reason: agitation Last Admin: 12/01/24 08:14 Dose: 5 mg Polyethylene Glycol (Polyethylene Glycol 3350 17 Gm Powd.Pack) 17 gm PO DAILY [facility] [place] Last Admin: 12/02/24 09:23 Dose: 17 gm Pramipexole Dihydrochloride (Pramipexole Di-Hcl 0.25 Mg Tablet) 0.5 mg PO TID [facility] [place] Last Admin: 12/02/24 09:23 Dose: 0.5 mg Senna/Docusate Sodium (Sennosides/Docusate Sodium Tablet) 1 tab PO BID PRN PRN Reason: no BM for more than 3days Sertraline HCl (Sertraline Hcl 50 Mg Tablet) 50 mg PO DAILY [facility] [place] Last Admin: 12/02/24 09:23 Dose: 50 mg Sodium Chloride (0.9 % Sodium Chloride Flush 10 Ml Syringe) 10 ml IVFLUSH QSHIFT [facility] [place] Last Admin: 12/02/24 09:22 Dose: 10 ml Tamsulosin HCl (Tamsulosin Hcl 0.4 Mg Capsule) 0.8 mg PO BEDTIME [facility] [place] Last Admin: 12/01/24 20:56 Dose: 0.8 mg Thiamine HCl (Thiamine Hcl 100 Mg Tablet) 100 mg PO DAILY [facility] [place] Last Admin: 12/02/24 09:23 Dose: 100 mg Trazodone HCl (Trazodone Hcl 50 Mg Tablet) 50 mg PO BEDTIME PRN PRN Reason: Insomnia Last Admin: 11/06/24 21:45 Dose: 50 mg Triamcinolone Acetonide (Triamcinolone Acet 0.1 % Cream 15 Gm Tube) 1 appl TOPICAL BID [facility] [place]; Protocol Allergies Allergies Allergy/AdvReac Type Severity Reaction Status Date / Time No Known Allergies (NKA) Allergy Unknown NONE Verified 10/27/24 19:26 Assessment & Plan Assessment & Plan (1) Schizoaffective disorder: Status: Acute Code(s): F25.9 - Schizoaffective disorder, unspecified (2) Catatonia: Status: Acute Code(s): F06.1 - Catatonic disorder due to known physiological condition (3) Essential hypertension: Status: Acute Code(s): I10 - Essential (primary) hypertension (4) Urinary retention with incomplete bladder emptying: Status: Acute Code(s): R33.9 - Retention of urine, unspecified Plan Schizoaffective DO/Depression with decompensation /Catatonia Treatment per psychiatric team Currently receiving Ketamine treatments. Plan is most likely care home ketamine treatments Will need alternative IV access. Patient with poor venous access. Consider PICC line or port. Fungal rash to left buttock Triamcinolone cream BID until clear. Urinary retention/BPH Continue Flomax Monitor for retention. Recent UA negative. Plan Assessment and Plan 59 year-old male with hx of schizoaffective disorder, hypertension, urinary retention, type 2 diabetes, depression recently discharged from on 10/08/2024 after prolonged admission due to treatment resistant catatonia. He had responded to Ketamine treatment, failed ECT with further complications including aspiration. He presented from longterm with a change in mental status, he was found wandering in the streets soaked in urine. Depression with decompensation of schizophrenia, catatonia. Status post ketamine treatments, history of ECT with aspiration event Treatment per psych team. Urinary retention/BPH Continue Flomax 0.8mg, Finesteride Dove catheter in place. Follow up urology outpatient Dysphagia Tolerating diet, HOB up. OOB for meals. Mr. 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 He had responded to ketamine treatment, failed ECT with further complications including aspiration. He presents with catatonia again including mutism, waxy flexibility. He had one ketamine treatment since he was discharged from the hospital and only partial dose. He was recommended to do weekly ketamine treatments to prevent catatonia. reports he was taking medications as prescribed. Pending clozapine/norclozapine levels. PLAN 1. Admit to , Sect 12b, 1:1 unsteady gait 2. will check KUB for constipation as pt very poor historian but reports no BM in several days. Will also check bladder scan post void to rule out overflow incontinence due to urinary retention since reports increase incontinence in past few days. Note that he was straight cath while in the ED. 3. restart medications- abilify, sertraline, clozapine, low dose depakote 4. obtain collateral information 5. aftercare panning. 10/29/24 Pt to restart ketamine hcp in effect on 12 b at present 10/30/2024 Patient now on CV by healthcare proxy. Ketamine protocol ordered for the morning the that was previously quite helpful in treating patients catatonia has not responded previously well to lorazepam had only intermittent response to ECT here proxy does not wish ECT treatment and did respond to ketamine Medications continue that previously had been helpful on recent discharge 10/31/2024 Patient given 1st ketamine treatment had respondent previously to a series no change this point. Encourage food and fluids face anxious in appearance mostly mute minimally responsive catatonic symptoms continue. Continue Abilify mirtazapine sertraline Clozaril 150 mg Continue ketamine trial 11/01/2024 Patient remains generally unchanged. Continue clozapine sertraline mirtazapine Abilify 5 mg pramipexole 0.5 t.i.d. part of previous catatonia algorithm. Ketamine scheduled when possible had previously been quite helpful was previously on a 2 week 2 times a week schedule Urinary retention positive urine culture case discussed hospitalist service. Hospitalist consult called. Plan for antibiotics and Dove catheter and then trial without the catheter as possible check electrolytes in the morning may benefit from fluid replacement. Maintain head of the bed elevated supportive nursing care plan to reduce possible congestion 11/02: Continue current regimen and plans 11/03: Continue current plans and regimen Reason for continued inpatient stay 11/05/24 Pt with some imp more alert tolerating ketamine tx needs assist eating walking flat catatonic cont pts catatonia protocal 11/06/2024 Continue plan of care ketamine 11/07/2024 some mild improvement noted continue Monday ketamine treatment 11/07/2024 Patient continues to show improvement from initial catatonia more verbal try to evaluate mood and psychosis. Need clarity why patient was unable to complete outpatient ketamine 11/08/2024 Gradual improvement continues patient able to ambulate independently Dove catheter continues continue ketamine clozapine mirtazapine Abilify 11/09 no change in presentation; continue treatment plan 11/10 Been doing much better today, walking around, talking. He agrees and says he is doing all right.' patient remembers that it was hard for him to talk yesterday but unable to say why. 11/11/2024 Patient has had 2 days of marked improvement unable to explain behavior prior to admission refusing intravenous ketamine what exactly happened home and why he has negative connotations unable to give a clear history regarding this appears to be responding well to continue ketamine increase Depakote 11/12/2024 Will try discontinue Dove catheter and voiding trial. Monitor for cycling change patient appears to be shifting out of catatonia much orozco range of affect future oriented. Ketamine held today scheduled for 821. Continue Abilify clozapine Depakote try and determine lowest schedule for ketamine that maintains patient very little to go by to guide this decision 10/2024 Continue plan of care monitor for martha or confusion ketamine in the morning monitor response to discontinuing Dove 11/14/2024 Patient's some increased anxiety status post ketamine denies psychotic symptoms offered option of lorazepam PRN Will need to evaluate ketamine dosing 11/15/2024 Increase Abilify to 10 mg lower sertraline to 50 mg monitor response question patient overstimulated by antidepressants check Depakote level check ammonia 11/16/24 Continue plan of care check level 11/17/24 Continue to monitor 11/18/2024 Ketamine on hold gradually increase clozapine and Depakote check level 11/19/2024 Patient seems improved orozco affect calmer and more cooperative less irritable. Question adverse reaction to higher dose of sertraline now decreased responding to increased Depakote. Ketamine infusion scheduled for 11/2111/20/2024 Patient continues on prior algorithm for catatonia which includes Abilify clozapine mirtazapine clozapine. He is also on Depakote Depakote level 28.6 ammonia level unremarkable could decrease Depakote monitor response to ketamine see if we can try and discontinue currently 1 time a week monitor for any adverse effect 11/21/24 dep level low can increase ammonia ok can try and see if ketamine could be held 11/22/24 will try amantadine for eps monitor response 11/27/2024 Ketamine in the morning will try half dosing continue amantadine for EPS continue clozapine and Depakote 11/28/2024 Continue plan of care catatonia markedly improved coordinate discharge 11/29/24 Pt improved fx less lable cont cloizapine amantadine new for eps 11/30 Checked vitals and grossly WNL Nursing reports that patient was irritable today. On approach patient did not want to talk and said I am all set.. Room smelled of urine 12/01 Is quite irritable; today patient got kicked out of OT group which is a 1st. On approach patient said that he is all right and acknowledges that he got angry but does not want to talk about it -ordered p.r.n. Ativan which is helped in the past following ketamine -ordered UA 12/02/2024 Ketamine ordered for the morning patient again it or irritable reactive aggressive unwilling to process emotions and thinking amantadine discontinued may be contributing to irritability agitation was prescribed for EPS. Patient not stable for discharge needs frequent cuing for food fluids internally preoccupied again isolated Reason for continued inpatient stay Substantial Risk for: inability to function, rapid decompensation and med/psych decompensation Time Spent With Patient Time: Total time managing care of this patient today ____ minutes.
--- NOTE | 2024-12-02 15:24 | MHC.CLN ---
F/U DIET=REGULAR. ENSURE TID (1050 KCALS, 60 G PROTEIN) TO PROMOTE NUTRITIONAL INTAKE. CONTINUES WITH USUALLY VERY GOOD PO INTAKE. RD TO MONITOR WEEKLY.
[2024-12-02 20:00] VITALS: BP 117/57; PULSE 77; RESP 18; TEMP 36.7; O2SAT 95
[2024-12-02] MEDS: Milk of Magnesia 30 ML ORAL.SUSP 5 ML PO (20:09)
[2024-12-02] MEDS: Divalproex Sodium Sprinkles 125 MG CAP.DR.SPR 1000 MG PO (20:10)
[2024-12-03] VITALS (11 sets, daily range): BP systolic 135–145; BP diastolic 66–78; PULSE 78–90; RESP 16–18; TEMP 36.1–36.9; O2SAT 95–99
[2024-12-03 08:11] LABS: Neut%MD 61.3 %; WBCANC 4.7 X10*3/uL
[2024-12-03] MEDS: Ferrous Sulfate 324 MG TABLET.DR PO (08:15)
[2024-12-03] MEDS: 0.9 % Sodium Chloride Flush 10 ML SYRINGE IVFLUSH (15:49)
--- NOTE | 2024-12-03 20:25 | P.PNPSI_ITS ---
Subjective Subjective Date of Service: 12/03/24 Reason For Visit: Catatonia Subjective Notes: Conditional Voluntary Healthcare Proxy: Yes Interim History: Patient feeling somewhat improved less depressed remains flat some psychomotor retardation. Patient stated he tolerated today's ketamine treatment Mental Status Exam Mental Status Exam Narrative: Patient casually dressed psychomotor retarded mood described as okay blunted minimally reactive and engaged his ambulating independently needs cuing regarding eating flat withdrawn isolative when not engaging conversation poverty of content denies active SI or HI becomes irritable reactive when asked about hallucinations paranoid concerns Limited insight impulse control seems adequate at this time Diagnostics Vital Signs (24Hr): Vital Signs - 24 hr 12/03/24 08:13 12/03/24 08:30 12/03/24 08:45 Temperature 97.2 F 97 F Pulse Rate 89 90 86 Respiratory Rate 17 18 16 Blood Pressure 142/75 H 144/66 H 139/75 Pulse Oximetry 99 96 96 Oxygen Delivery Method Room Air Room Air Room Air 12/03/24 09:00 12/03/24 09:15 12/03/24 09:30 Temperature Pulse Rate 82 81 78 Respiratory Rate 18 18 18 Blood Pressure 135/74 145/73 H 143/73 H Pulse Oximetry 96 95 95 Oxygen Delivery Method Room Air Room Air Room Air 12/03/24 09:45 12/03/24 10:00 12/03/24 10:15 Temperature Pulse Rate 80 80 81 Respiratory Rate 18 16 18 Blood Pressure 135/73 135/73 Pulse Oximetry 96 98 97 Oxygen Delivery Method Room Air Room Air Room Air 12/03/24 10:30 Temperature 97 F Pulse Rate 81 Respiratory Rate 18 Blood Pressure 136/73 Pulse Oximetry 97 Oxygen Delivery Method Room Air BMI result Body Mass Index 28.9 Labs 11/19/24 10:54 11/19/24 10:54 Labs: Laboratory Results - last 48 hr 12/02/24 12/03/24 12/03/24 Unknown 08:01 08:01 Absolute Neuts (auto) Cancelled 2.9 Urine Color Yellow Urine Appearance Clear Urine pH 6.5 Ur Specific [place] 1.015 Urine Protein Negative Urine Glucose (UA) Negative Urine Ketones Negative Urine Blood Negative Urine Nitrite Negative Ur Leukocyte Esterase Negative Urine RBC 0-2 Urine WBC 0-5 Ur Squamous Epith Cells 0-2 Urine Bacteria None Seen Hyaline Casts 0-2 Imaging Radiology Impressions: ITS Impressions KUB X-Ray 10/28/24 16:45 IMPRESSION: Again seen is a large amount of stool throughout the colon and rectum. Electronically signed by: Jose J Gonzalez MD 10/28/2024 05:20 PM EDT Medications Medications Current Medications Acetaminophen (Acetaminophen 325 Mg Tablet) 650 mg PO Q6H PRN PRN Reason: Headache/Pain, Scale 1-10 Last Admin: 11/01/24 20:01 Dose: 650 mg Al Hydroxide/Mg Hydroxide (Magnesium Hydrox/Alum Hydrox 30 Ml Oral.Susp) 30 ml PO Q6H PRN PRN Reason: Heartburn/Nausea Aripiprazole (Aripiprazole 10 Mg Tablet) 10 mg PO DAILY@1730 [facility] Last Admin: 12/03/24 16:42 Dose: 10 mg Ascorbic Acid (Ascorbic Acid 500 Mg Tablet) 500 mg PO DAILY [facility] Last Admin: 12/03/24 08:14 Dose: 500 mg Clozapine (Clozapine 25 Mg Tablet) 225 mg PO DAILY@1999 [facility] Last Admin: 12/02/24 20:12 Dose: 225 mg Divalproex Sodium (Divalproex Sodium Sprinkles 125 Mg Cap.Dr.Spr) 1,000 mg PO DAILY@1999 [facility] Last Admin: 12/02/24 20:10 Dose: 1,000 mg Ferrous Sulfate (Ferrous Sulfate 324 Mg Tablet.Dr) 324 mg PO DAILY [facility] Last Admin: 12/03/24 08:15 Dose: 324 mg Finasteride (Finasteride 5 Mg Tablet) 5 mg PO DAILY [facility] Last Admin: 12/03/24 08:14 Dose: 5 mg Magnesium Hydroxide (Milk Of Magnesia 30 Ml Oral.Susp) 30 ml PO DAILY PRN PRN Reason: Constipation Magnesium Hydroxide (Milk Of Magnesia 30 Ml Oral.Susp) 5 ml PO BEDTIME [facility] Last Admin: 12/02/24 20:09 Dose: 5 ml Mirtazapine (Mirtazapine 15 Mg Tablet) 15 mg PO BEDTIME [facility] Last Admin: 12/02/24 20:14 Dose: 15 mg Nystatin (Nystatin Powder 15 Gm Bottle) 1 appl TOPICAL BID [facility]; Protocol Last Admin: 12/03/24 11:34 Dose: 1 appl Olanzapine (Olanzapine Odt 10 Mg Tab.Rapdis) 5 mg TRANSLINGU BID PRN PRN Reason: agitation Last Admin: 12/01/24 08:14 Dose: 5 mg Polyethylene Glycol (Polyethylene Glycol 3350 17 Gm Powd.Pack) 17 gm PO DAILY [facility] Last Admin: 12/03/24 11:33 Dose: Not Given Pramipexole Dihydrochloride (Pramipexole Di-Hcl 0.25 Mg Tablet) 0.5 mg PO TID [facility] Last Admin: 12/03/24 14:11 Dose: 0.5 mg Senna/Docusate Sodium (Sennosides/Docusate Sodium Tablet) 1 tab PO BID PRN PRN Reason: no BM for more than 3days Sertraline HCl (Sertraline Hcl 50 Mg Tablet) 50 mg PO DAILY [facility] Last Admin: 12/03/24 08:14 Dose: 50 mg Sodium Chloride (0.9 % Sodium Chloride Flush 10 Ml Syringe) 10 ml IVFLUSH QSHIFT [facility] Last Admin: 12/03/24 15:49 Dose: 10 ml Tamsulosin HCl (Tamsulosin Hcl 0.4 Mg Capsule) 0.8 mg PO BEDTIME [facility] Last Admin: 12/02/24 20:13 Dose: 0.8 mg Thiamine HCl (Thiamine Hcl 100 Mg Tablet) 100 mg PO DAILY [facility] Last Admin: 12/03/24 08:15 Dose: 100 mg Trazodone HCl (Trazodone Hcl 50 Mg Tablet) 50 mg PO BEDTIME PRN PRN Reason: Insomnia Last Admin: 11/06/24 21:45 Dose: 50 mg Triamcinolone Acetonide (Triamcinolone Acet 0.1 % Cream 15 Gm Tube) 1 appl TOPICAL BID [facility]; Protocol Last Admin: 12/03/24 11:33 Dose: Not Given Allergies Allergies Allergy/AdvReac Type Severity Reaction Status Date / Time No Known Allergies (NKA) Allergy Unknown NONE Verified 10/27/24 19:26 Assessment & Plan Assessment & Plan (1) Schizoaffective disorder: Status: Acute Code(s): F25.9 - Schizoaffective disorder, unspecified (2) Catatonia: Status: Acute Code(s): F06.1 - Catatonic disorder due to known physiological condition (3) Essential hypertension: Status: Acute Code(s): I10 - Essential (primary) hypertension (4) Urinary retention with incomplete bladder emptying: Status: Acute Code(s): R33.9 - Retention of urine, unspecified Plan Schizoaffective DO/Depression with decompensation /Catatonia Treatment per psychiatric team Currently receiving Ketamine treatments. Plan is most likely technician terminal and repeater ketamine treatments Will need alternative IV access. Patient with poor venous access. Consider PICC line or port. Fungal rash to left buttock Triamcinolone cream BID until clear. Urinary retention/BPH Continue Flomax Monitor for retention. Recent UA negative. Plan Assessment and Plan 59 year-old male with hx of schizoaffective disorder, hypertension, urinary retention, type 2 diabetes, depression recently discharged from [facility] on 10/08/2024 after prolonged admission due to treatment resistant catatonia. He had responded to Ketamine treatment, failed ECT with further complications including aspiration. He presented from long-term with a change in mental status, he was found wandering in the streets soaked in urine. Depression with decompensation of schizophrenia, catatonia. Status post ketamine treatments, history of ECT with aspiration event Treatment per psych team. Urinary retention/BPH Continue Flomax 0.8mg, Finesteride Dove catheter in place. Follow up urology outpatient Dysphagia Tolerating diet, HOB up. OOB for meals. Mr. Tenorio is a 59 year-old male with hx of schizoaffective disorder recently discharged from [facility] on 10/08/2024 after prologued admission due to treatment resistant catatonia. He had responded to ketamine treatment, failed ECT with further complications including aspiration. He presents with catatonia again including mutism, waxy flexibility. He had one ketamine treatment since he was discharged from the hospital and only partial dose. He was recommended to do weekly ketamine treatments to prevent catatonia. reports he was taking medications as prescribed. Pending clozapine/norclozapine levels. PLAN 1. Admit to S1, Sect 12b, 1:1 unsteady gait 2. will check KUB for constipation as pt very poor historian but reports no BM in several days. Will also check bladder scan post void to rule out overflow incontinence due to urinary retention since reports increase incontinence in past few days. Note that he was straight cath while in the ED. 3. restart medications- abilify, sertraline, clozapine, low dose depakote 4. obtain collateral information 5. aftercare panning. 10/29/24 Pt to restart ketamine hcp in effect on 12 b at present 10/30/2024 Patient now on CV by healthcare proxy. Ketamine protocol ordered for the morning the that was previously quite helpful in treating patients catatonia has not responded previously well to lorazepam had only intermittent response to ECT here proxy does not wish ECT treatment and did respond to ketamine Medications continue that previously had been helpful on recent discharge 10/31/2024 Patient given 1st ketamine treatment had respondent previously to a series no change this point. Encourage food and fluids face anxious in appearance mostly mute minimally responsive catatonic symptoms continue. Continue Abilify mirtazapine sertraline Clozaril 150 mg Continue ketamine trial 11/01/2024 Patient remains generally unchanged. Continue clozapine sertraline mirtazapine Abilify 5 mg pramipexole 0.5 t.i.d. part of previous catatonia algorithm. Ketamine scheduled when possible had previously been quite helpful was previously on a 2 week 2 times a week schedule Urinary retention positive urine culture case discussed hospitalist service. Hospitalist consult called. Plan for antibiotics and Dove catheter and then trial without the catheter as possible check electrolytes in the morning may benefit from fluid replacement. Maintain head of the bed elevated supportive nursing care plan to reduce possible congestion 11/02: Continue current regimen and plans 11/03: Continue current plans and regimen Reason for continued inpatient stay 11/05/24 Pt with some imp more alert tolerating ketamine tx needs assist eating walking flat catatonic cont pts catatonia protocal 11/06/2024 Continue plan of care ketamine 11/07/2024 some mild improvement noted continue Monday ketamine treatment 11/07/2024 Patient continues to show improvement from initial catatonia more verbal try to evaluate mood and psychosis. Need clarity why patient was unable to complete outpatient ketamine 11/08/2024 Gradual improvement continues patient able to ambulate independently Dove catheter continues continue ketamine clozapine mirtazapine Abilify 11/09 no change in presentation; continue treatment plan 11/10 Been doing much better today, walking around, talking. He agrees and says he is doing all right.' patient remembers that it was hard for him to talk yesterday but unable to say why. 11/11/2024 Patient has had 2 days of marked improvement unable to explain behavior prior to admission refusing intravenous ketamine what exactly happened home and why he has negative connotations unable to give a clear history regarding this appears to be responding well to continue ketamine increase Depakote 11/12/2024 Will try discontinue Dove catheter and voiding trial. Monitor for cycling change patient appears to be shifting out of catatonia much orozco range of affect future oriented. Ketamine held today scheduled for 821. Continue Abilify clozapine Depakote try and determine lowest schedule for ketamine that maintains patient very little to go by to guide this decision 10/2024 Continue plan of care monitor for martha or confusion ketamine in the morning monitor response to discontinuing Dove 11/14/2024 Patient's some increased anxiety status post ketamine denies psychotic symptoms offered option of lorazepam PRN Will need to evaluate ketamine dosing 11/15/2024 Increase Abilify to 10 mg lower sertraline to 50 mg monitor response question patient overstimulated by antidepressants check Depakote level check ammonia 11/16/24 Continue plan of care check level 11/17/24 Continue to monitor 11/18/2024 Ketamine on hold gradually increase clozapine and Depakote check level 11/19/2024 Patient seems improved orozco affect calmer and more cooperative less irritable. Question adverse reaction to higher dose of sertraline now decreased responding to increased Depakote. Ketamine infusion scheduled for 11/2111/20/2024 Patient continues on prior algorithm for catatonia which includes Abilify clozapine mirtazapine clozapine. He is also on Depakote Depakote level 28.6 ammonia level unremarkable could decrease Depakote monitor response to ketamine see if we can try and discontinue currently 1 time a week monitor for any adverse effect 11/21/24 dep level low can increase ammonia ok can try and see if ketamine could be held 11/22/24 will try amantadine for eps monitor response 11/27/2024 Ketamine in the morning will try half dosing continue amantadine for EPS continue clozapine and Depakote 11/28/2024 Continue plan of care catatonia markedly improved coordinate discharge 11/29/24 Pt improved fx less lable cont cloizapine amantadine new for eps 11/30 Checked vitals and grossly WNL Nursing reports that patient was irritable today. On approach patient did not want to talk and said I am all set.. Room smelled of urine 12/01 Is quite irritable; today patient got kicked out of OT group which is a 1st. On approach patient said that he is all right and acknowledges that he got angry but does not want to talk about it -ordered p.r.n. Ativan which is helped in the past following ketamine -ordered UA 12/02/2024 Ketamine ordered for the morning patient again it or irritable reactive aggressive unwilling to process emotions and thinking amantadine discontinued may be contributing to irritability agitation was prescribed for EPS. Patient not stable for discharge needs frequent cuing for food fluids internally preoccupied again isolated 12 03 24 Patient seems somewhat improved with ketamine treatment at full dosing this morning he is able to ambulate sit in the kitchen needs assist with showering psychomotor retarded but improved from yesterday limited verbally flat. Amantadine discontinued limited options for EPS given patient history of urinary retention avoiding Cogentin amantadine may have caused irritability check Depakote and Clozaril level working to discharge to a [facility] long-term when possible Reason for continued inpatient stay Substantial Risk for: inability to function, rapid decompensation and med/psych decompensation Time Spent With Patient Time: Total time managing care of this patient today ____ minutes.
[2024-12-03] MEDS: Milk of Magnesia 30 ML ORAL.SUSP 5 ML PO (20:50)
[2024-12-03] MEDS: Divalproex Sodium Sprinkles 125 MG CAP.DR.SPR 1000 MG PO (20:50)
[2024-12-04] MEDS: 0.9 % Sodium Chloride Flush 10 ML SYRINGE IVFLUSH ×3 (00:27→15:13)
[2024-12-04 08:57] VITALS: BP 128/58; PULSE 85; RESP 18; TEMP 36.3; O2SAT 97
[2024-12-04] MEDS: Ferrous Sulfate 324 MG TABLET.DR PO (08:58)
--- NOTE | 2024-12-04 13:49 | P.PNPSI_ITS ---
Subjective Subjective Date of Service: 12/04/24 Reason For Visit: Catatonia Subjective Notes: Conditional Voluntary Interim History: Patient seen psychiatric follow-up. Patient's mood minimally improved remains withdrawn needs cuing for basic ADL functioning . Has been withdrawn limited speech Medication Compliance: Yes Mental Status Exam Mental Status Exam Narrative: Patient casually dressed dishevelled psychomotor retarded mood depressed blunted minimally reactive and engaged his ambulating independently needs cuing regarding eating flat withdrawn isolative when not engaging conversation poverty of content denies active SI or HI becomes irritable reactive when asked about hallucinations paranoid concerns ongoing Limited insight impulse control seems adequate at this time Diagnostics Vital Signs (24Hr): Vital Signs - 24 hr 12/03/24 20:00 12/04/24 08:57 Temperature 98.4 F 97.3 F Pulse Rate 79 85 Respiratory Rate 18 18 Blood Pressure 135/78 128/58 L Pulse Oximetry 96 97 Oxygen Delivery Method Room Air Room Air BMI result Body Mass Index 28.9 Labs 11/19/24 10:54 11/19/24 10:54 Labs: Laboratory Results - last 48 hr 12/03/24 12/03/24 08:01 08:01 Absolute Neuts (auto) Cancelled 2.9 Imaging Radiology Impressions: ITS Impressions KUB X-Ray 10/28/24 16:45 IMPRESSION: Again seen is a large amount of stool throughout the colon and rectum. Electronically signed by: Jose J Gonzalez MD 10/28/2024 05:20 PM EDT RP Medications Medications Current Medications Acetaminophen (Acetaminophen 325 Mg Tablet) 650 mg PO Q6H PRN PRN Reason: Headache/Pain, Scale 1-10 Last Admin: 11/01/24 20:01 Dose: 650 mg Al Hydroxide/Mg Hydroxide (Magnesium Hydrox/Alum Hydrox 30 Ml Oral.Susp) 30 ml PO Q6H PRN PRN Reason: Heartburn/Nausea Aripiprazole (Aripiprazole 10 Mg Tablet) 10 mg PO DAILY@1730 [facility] Last Admin: 12/03/24 16:42 Dose: 10 mg Ascorbic Acid (Ascorbic Acid 500 Mg Tablet) 500 mg PO DAILY [facility] Last Admin: 12/04/24 08:58 Dose: 500 mg Clozapine (Clozapine 25 Mg Tablet) 250 mg PO DAILY@2000 [facility] Divalproex Sodium (Divalproex Sodium Sprinkles 125 Mg ) 1,000 mg PO DAILY@1999 [facility] Last Admin: 12/03/24 20:50 Dose: 1,000 mg Ferrous Sulfate (Ferrous Sulfate 324 Mg Tablet.) 324 mg PO DAILY [facility] Last Admin: 12/04/24 08:58 Dose: 324 mg Finasteride (Finasteride 5 Mg Tablet) 5 mg PO DAILY [facility] Last Admin: 12/04/24 08:58 Dose: 5 mg Ketamine HCl 45 mg/ Sodium (Chloride) 4.5 mls @ 4.5 mls/hr IV ONCE ONE Stop: 12/05/24 07:31 Magnesium Hydroxide (Milk Of Magnesia 30 Ml Oral.Susp) 30 ml PO DAILY PRN PRN Reason: Constipation Magnesium Hydroxide (Milk Of Magnesia 30 Ml Oral.Susp) 5 ml PO BEDTIME [facility] Last Admin: 12/03/24 20:50 Dose: 5 ml Mirtazapine (Mirtazapine 15 Mg Tablet) 15 mg PO BEDTIME [facility] Last Admin: 12/03/24 20:51 Dose: 15 mg Nystatin (Nystatin Powder 15 Gm Bottle) 1 appl TOPICAL BID [facility]; Protocol Last Admin: 12/04/24 08:58 Dose: 1 appl Olanzapine (Olanzapine Odt 10 Mg Tab.Rapdis) 5 mg TRANSLINGU BID PRN PRN Reason: agitation Last Admin: 12/01/24 08:14 Dose: 5 mg Polyethylene Glycol (Polyethylene Glycol 3350 17 Gm Powd.Pack) 17 gm PO DAILY [facility] Last Admin: 12/04/24 08:59 Dose: Not Given Pramipexole Dihydrochloride (Pramipexole Di-Hcl 0.25 Mg Tablet) 0.5 mg PO TID [facility] Last Admin: 12/04/24 08:58 Dose: 0.5 mg Senna/Docusate Sodium (Sennosides/Docusate Sodium Tablet) 1 tab PO BID PRN PRN Reason: no BM for more than 3days Sertraline HCl (Sertraline Hcl 50 Mg Tablet) 50 mg PO DAILY [facility] Last Admin: 12/04/24 08:58 Dose: 50 mg Sodium Chloride (0.9 % Sodium Chloride Flush 10 Ml Syringe) 10 ml IVFLUSH QSHIFT [facility] Last Admin: 12/04/24 08:59 Dose: 10 ml Tamsulosin HCl (Tamsulosin Hcl 0.4 Mg Capsule) 0.8 mg PO BEDTIME [facility] Last Admin: 12/03/24 20:51 Dose: 0.8 mg Thiamine HCl (Thiamine Hcl 100 Mg Tablet) 100 mg PO DAILY [facility] Last Admin: 12/04/24 08:58 Dose: 100 mg Trazodone HCl (Trazodone Hcl 50 Mg Tablet) 50 mg PO BEDTIME PRN PRN Reason: Insomnia Last Admin: 11/06/24 21:45 Dose: 50 mg Triamcinolone Acetonide (Triamcinolone Acet 0.1 % Cream 15 Gm Tube) 1 appl TOPICAL BID [facility]; Protocol Last Admin: 12/03/24 20:52 Dose: Not Given Allergies Allergies Allergy/AdvReac Type Severity Reaction Status Date / Time No Known Allergies (NKA) Allergy Unknown NONE Verified 10/27/24 19:26 Assessment & Plan Assessment & Plan (1) Schizoaffective disorder: Status: Acute Code(s): F25.9 - Schizoaffective disorder, unspecified (2) Catatonia: Status: Acute Code(s): F06.1 - Catatonic disorder due to known physiological condition (3) Essential hypertension: Status: Acute Code(s): I10 - Essential (primary) hypertension (4) Urinary retention with incomplete bladder emptying: Status: Acute Code(s): R33.9 - Retention of urine, unspecified Plan Schizoaffective DO/Depression with decompensation /Catatonia Treatment per psychiatric team Currently receiving Ketamine treatments. 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 Patient with poor venous access. Consider PICC line or port. Fungal rash to left buttock Triamcinolone cream BID until clear. Urinary retention/BPH Continue Flomax Monitor for retention. Recent UA negative. Plan Assessment and Plan 59 year-old male with hx of schizoaffective disorder, hypertension, urinary retention, type 2 diabetes, depression recently discharged from on 10/08/2024 after prolonged admission due to treatment resistant catatonia. He had responded to Ketamine treatment, failed ECT with further complications including aspiration. [facility] with a change in mental status, he was found wandering in the streets soaked in urine. Depression with decompensation of schizophrenia, catatonia. Status post ketamine treatments, history of ECT with aspiration event Treatment per psych team. Urinary retention/BPH Continue Flomax 0.8mg, Finesteride Dove catheter in place. Follow up urology outpatient Dysphagia Tolerating diet, HOB up. OOB for meals. Mr. 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 He had responded to ketamine treatment, failed ECT with further complications including aspiration. He presents with catatonia again including mutism, waxy flexibility. He had one ketamine treatment since he was discharged from the hospital and only partial dose. He was recommended to do weekly ketamine treatments to prevent catatonia. reports he was taking medications as prescribed. Pending clozapine/norclozapine levels. PLAN 1. Admit to , Sect 12b, 1:1 unsteady gait 2. will check KUB for constipation as pt very poor historian but reports no BM in several days. Will also check bladder scan post void to rule out overflow incontinence due to urinary retention since reports increase incontinence in past few days. Note that he was straight cath while in the ED. 3. restart medications- abilify, sertraline, clozapine, low dose depakote 4. obtain collateral information 5. aftercare panning. 10/29/24 Pt to restart ketamine hcp in effect on 12 b at present 10/30/2024 Patient now on CV by healthcare proxy. Ketamine protocol ordered for the morning the that was previously quite helpful in treating patients catatonia has not responded previously well to lorazepam had only intermittent response to ECT here proxy does not wish ECT treatment and did respond to ketamine Medications continue that previously had been helpful on recent discharge 10/31/2024 Patient given 1st ketamine treatment had respondent previously to a series no change this point. Encourage food and fluids face anxious in appearance mostly mute minimally responsive catatonic symptoms continue. Continue Abilify mirtazapine sertraline Clozaril 150 mg Continue ketamine trial 11/01/2024 Patient remains generally unchanged. Continue clozapine sertraline mirtazapine Abilify 5 mg pramipexole 0.5 t.i.d. part of previous catatonia algorithm. Ketamine scheduled when possible had previously been quite helpful was previously on a 2 week 2 times a week schedule Urinary retention positive urine culture case discussed hospitalist service. Hospitalist consult called. Plan for antibiotics and Dove catheter and then trial without the catheter as possible check electrolytes in the morning may benefit from fluid replacement. Maintain head of the bed elevated supportive nursing care plan to reduce possible congestion 11/02: Continue current regimen and plans 11/03: Continue current plans and regimen Reason for continued inpatient stay 11/05/24 Pt with some imp more alert tolerating ketamine tx needs assist eating walking flat catatonic cont pts catatonia protocal 11/06/2024 Continue plan of care ketamine 11/07/2024 some mild improvement noted continue Monday ketamine treatment 11/07/2024 Patient continues to show improvement from initial catatonia more verbal try to evaluate mood and psychosis. Need clarity why patient was unable to complete outpatient ketamine 11/08/2024 Gradual improvement continues patient able to ambulate independently Dove catheter continues continue ketamine clozapine mirtazapine Abilify 11/09 no change in presentation; continue treatment plan 11/10 Been doing much better today, walking around, talking. He agrees and says he is doing all right.' patient remembers that it was hard for him to talk yesterday but unable to say why. 11/11/2024 Patient has had 2 days of marked improvement unable to explain behavior prior to admission refusing intravenous ketamine what exactly happened home and why he has negative connotations unable to give a clear history regarding this appears to be responding well to continue ketamine increase Depakote 11/12/2024 Will try discontinue Dove catheter and voiding trial. Monitor for cycling change patient appears to be shifting out of catatonia much orozco range of affect future oriented. Ketamine held today scheduled for 821. Continue Abilify clozapine Depakote try and determine lowest schedule for ketamine that maintains patient very little to go by to guide this decision 10/2024 Continue plan of care monitor for martha or confusion ketamine in the morning monitor response to discontinuing Dove 11/14/2024 Patient's some increased anxiety status post ketamine denies psychotic symptoms offered option of lorazepam PRN Will need to evaluate ketamine dosing 11/15/2024 Increase Abilify to 10 mg lower sertraline to 50 mg monitor response question patient overstimulated by antidepressants check Depakote level check ammonia 11/16/24 Continue plan of care check level 11/17/24 Continue to monitor 11/18/2024 Ketamine on hold gradually increase clozapine and Depakote check level 11/19/2024 Patient seems improved orozco affect calmer and more cooperative less irritable. Question adverse reaction to higher dose of sertraline now decreased responding to increased Depakote. Ketamine infusion scheduled for 11/2111/20/2024 Patient continues on prior algorithm for catatonia which includes Abilify clozapine mirtazapine clozapine. He is also on Depakote Depakote level 28.6 ammonia level unremarkable could decrease Depakote monitor response to ketamine see if we can try and discontinue currently 1 time a week monitor for any adverse effect 11/21/24 dep level low can increase ammonia ok can try and see if ketamine could be held 11/22/24 will try amantadine for eps monitor response 11/27/2024 Ketamine in the morning will try half dosing continue amantadine for EPS continue clozapine and Depakote 11/28/2024 Continue plan of care catatonia markedly improved coordinate discharge 11/29/24 Pt improved fx less lable cont cloizapine amantadine new for eps 11/30 Checked vitals and grossly WNL Nursing reports that patient was irritable today. On approach patient did not want to talk and said I am all set.. Room smelled of urine 12/01 Is quite irritable; today patient got kicked out of OT group which is a 1st. On approach patient said that he is all right and acknowledges that he got angry but does not want to talk about it -ordered p.r.n. Ativan which is helped in the past following ketamine -ordered UA 12/02/2024 Ketamine ordered for the morning patient again it or irritable reactive aggressive unwilling to process emotions and thinking amantadine discontinued may be contributing to irritability agitation was prescribed for EPS. Patient not stable for discharge needs frequent cuing for food fluids internally preoccupied again isolated 12 03 24 Patient seems somewhat improved with ketamine treatment at full dosing this morning he is able to ambulate sit in the kitchen needs assist with showering psychomotor retarded but improved from yesterday limited verbally flat. Amantadine discontinued limited options for EPS given patient history of urinary retention avoiding Cogentin amantadine may have caused irritability check Depakote and Clozaril level working to discharge to a [facility] when possible 12/04/24 Patient withdrawn and blunted ketamine against scheduled for tomorrow morning has responded previously unclear why he relapsed again. Increase clozapine will need PICC line or port Reason for continued inpatient stay Substantial Risk for: inability to function, rapid decompensation and med/psych decompensation Time Spent With Patient Time: Total time managing care of this patient today ____ minutes.
[2024-12-04] MEDS: Triamcinolone Acet 0.1 % Cream 15 GM TUBE 1 APPL TOPICAL (17:51)
[2024-12-04 20:00] VITALS: BP 131/70; PULSE 75; RESP 18; TEMP 36.6; O2SAT 98
[2024-12-04] MEDS: Milk of Magnesia 30 ML ORAL.SUSP 5 ML PO (20:50)
[2024-12-04] MEDS: Divalproex Sodium Sprinkles 125 MG CAP.DR.SPR 1000 MG PO (21:07)
[2024-12-05] VITALS (13 sets, daily range): BP systolic 116–142; BP diastolic 66–75; PULSE 72–84; RESP 16–18; TEMP 36.2–36.4; O2SAT 95–99
[2024-12-05] MEDS: 0.9 % Sodium Chloride Flush 10 ML SYRINGE IVFLUSH ×2 (00:15→17:06)
[2024-12-05] MEDS: Ferrous Sulfate 324 MG TABLET.DR PO (07:42)
--- NOTE | 2024-12-05 10:57 | HO.PSYCHPN ---
Subjective Subjective Date of Service: 12/05/24 Reason For Visit: Catatonia Subjective Notes: Conditional Voluntary Healthcare Proxy: Yes Interim History: Patient seen psychiatric follow-up chart reviewed case reviewed in treatment planning. Patient did receive ketamine intravenously without difficulty this morning. Patient flat somewhat withdrawn but taking care of ADLs will engage with slowed responses .,,,,,,,,,,,,,,,,,,,,,,,,,,,,,,,,,,, Medication Compliance: Yes Mental Status Exam Mental Status Exam Narrative: Patient casually dressed dishevelled psychomotor retarded mood flat affect constricted ambulating independently needs cuing regarding eating flat withdrawn isolative when not engaging conversation poverty of content denies active SI or HI marked poverty of content Limited insight impulse control seems adequate at this time Diagnostics Vital Signs (24Hr): Vital Signs - 24 hr 12/04/24 20:00 12/05/24 07:40 12/05/24 07:50 Temperature 97.9 F 97.5 F 97.4 F Pulse Rate 75 84 81 Respiratory Rate 18 16 18 Blood Pressure 131/70 135/74 129/75 Pulse Oximetry 98 97 96 Oxygen Delivery Method Room Air Room Air Room Air 12/05/24 08:05 12/05/24 08:20 12/05/24 08:33 Temperature Pulse Rate 81 76 77 Respiratory Rate 18 18 18 Blood Pressure 127/72 125/71 128/73 Pulse Oximetry 96 95 98 Oxygen Delivery Method Room Air Room Air Room Air 12/05/24 08:50 12/05/24 09:05 12/05/24 09:20 Temperature 97.4 F Pulse Rate 74 74 75 Respiratory Rate 17 18 18 Blood Pressure 116/72 126/72 121/72 Pulse Oximetry 96 97 99 Oxygen Delivery Method Room Air Room Air Room Air 12/05/24 09:35 12/05/24 09:50 12/05/24 10:05 Temperature 97.2 F Pulse Rate 72 74 72 Respiratory Rate 18 16 16 Blood Pressure 120/66 119/71 124/74 Pulse Oximetry 97 97 97 Oxygen Delivery Method Room Air Room Air Room Air 12/05/24 10:39 Temperature Pulse Rate 76 Respiratory Rate 16 Blood Pressure 142/74 H Pulse Oximetry 97 Oxygen Delivery Method Room Air BMI result Body Mass Index 28.9 Labs 11/19/24 10:54 11/19/24 10:54 Imaging Radiology Impressions: ITS Impressions KUB X-Ray 10/28/24 16:45 IMPRESSION: Again seen is a large amount of stool throughout the colon and rectum. Electronically signed by: Jose J Gonzalez MD 10/28/2024 05:20 PM EDT Medications Medications Current Medications Acetaminophen (Acetaminophen 325 Mg Tablet) 650 mg PO Q6H PRN PRN Reason: Headache/Pain, Scale 1-10 Last Admin: 11/01/24 20:01 Dose: 650 mg Al Hydroxide/Mg Hydroxide (Magnesium Hydrox/Alum Hydrox 30 Ml Oral.Susp) 30 ml PO Q6H PRN PRN Reason: Heartburn/Nausea Aripiprazole (Aripiprazole 10 Mg Tablet) 10 mg PO DAILY@1730 [facility] Last Admin: 12/04/24 18:04 Dose: 10 mg Ascorbic Acid (Ascorbic Acid 500 Mg Tablet) 500 mg PO DAILY [facility] Last Admin: 12/05/24 07:42 Dose: 500 mg Clozapine (Clozapine 25 Mg Tablet) 250 mg PO DAILY@1999 [facility] Last Admin: 12/04/24 20:50 Dose: 250 mg Divalproex Sodium (Divalproex Sodium Sprinkles 125 Mg Cap.) 1,000 mg PO DAILY@1999 [facility] Last Admin: 12/04/24 21:07 Dose: 1,000 mg Ferrous Sulfate (Ferrous Sulfate 324 Mg Tablet.Dr) 324 mg PO DAILY [facility] Last Admin: 12/05/24 07:42 Dose: 324 mg Finasteride (Finasteride 5 Mg Tablet) 5 mg PO DAILY [facility] Last Admin: 12/05/24 07:42 Dose: 5 mg Magnesium Hydroxide (Milk Of Magnesia 30 Ml Oral.Susp) 30 ml PO DAILY PRN PRN Reason: Constipation Magnesium Hydroxide (Milk Of Magnesia 30 Ml Oral.Susp) 5 ml PO BEDTIME [facility] Last Admin: 12/04/24 20:50 Dose: 5 ml Mirtazapine (Mirtazapine 15 Mg Tablet) 15 mg PO BEDTIME [facility] Last Admin: 12/04/24 20:50 Dose: 15 mg Nystatin (Nystatin Powder 15 Gm Bottle) 1 appl TOPICAL BID [facility]; Protocol Last Admin: 12/04/24 21:07 Dose: 1 appl Olanzapine (Olanzapine Odt 10 Mg Tab.Rapdis) 5 mg TRANSLINGU BID PRN PRN Reason: agitation Last Admin: 12/01/24 08:14 Dose: 5 mg Polyethylene Glycol (Polyethylene Glycol 3350 17 Gm Powd.Pack) 17 gm PO DAILY [facility] Last Admin: 12/05/24 07:42 Dose: Not Given Pramipexole Dihydrochloride (Pramipexole Di-Hcl 0.25 Mg Tablet) 0.5 mg PO TID [facility] Last Admin: 12/04/24 20:51 Dose: 0.5 mg Senna/Docusate Sodium (Sennosides/Docusate Sodium Tablet) 1 tab PO BID PRN PRN Reason: no BM for more than 3days Sertraline HCl (Sertraline Hcl 50 Mg Tablet) 50 mg PO DAILY [facility] Last Admin: 12/05/24 07:42 Dose: 50 mg Sodium Chloride (0.9 % Sodium Chloride Flush 10 Ml Syringe) 10 ml IVFLUSH QSHIFT [facility] Last Admin: 12/05/24 00:15 Dose: 10 ml Tamsulosin HCl (Tamsulosin Hcl 0.4 Mg Capsule) 0.8 mg PO BEDTIME [facility] Last Admin: 12/04/24 20:51 Dose: 0.8 mg Thiamine HCl (Thiamine Hcl 100 Mg Tablet) 100 mg PO DAILY [facility] Last Admin: 12/05/24 07:41 Dose: 100 mg Trazodone HCl (Trazodone Hcl 50 Mg Tablet) 50 mg PO BEDTIME PRN PRN Reason: Insomnia Last Admin: 11/06/24 21:45 Dose: 50 mg Triamcinolone Acetonide (Triamcinolone Acet 0.1 % Cream 15 Gm Tube) 1 appl TOPICAL BID [facility]; Protocol Last Admin: 12/04/24 21:12 Dose: Not Given Allergies Allergies Allergy/AdvReac Type Severity Reaction Status Date / Time No Known Allergies (NKA) Allergy Unknown NONE Verified 10/27/24 19:26 Assessment & Plan Assessment & Plan (1) Schizoaffective disorder: Status: Acute Code(s): F25.9 - Schizoaffective disorder, unspecified (2) Catatonia: Status: Acute Code(s): F06.1 - Catatonic disorder due to known physiological condition (3) Essential hypertension: Status: Acute Code(s): I10 - Essential (primary) hypertension (4) Urinary retention with incomplete bladder emptying: Status: Acute Code(s): R33.9 - Retention of urine, unspecified Plan Schizoaffective DO/Depression with decompensation /Catatonia Treatment per psychiatric team Currently receiving Ketamine treatments. Plan is most likely residential ketamine treatments Will need alternative IV access. Patient with poor venous access. Consider PICC line or port. Fungal rash to left buttock Triamcinolone cream BID until clear. Urinary retention/BPH Continue Flomax Monitor for retention. Recent UA negative. Plan Assessment and Plan 59 year-old male with hx of schizoaffective disorder, hypertension, urinary retention, type 2 diabetes, depression recently discharged from on 10/08/2024 after prolonged admission due to treatment resistant catatonia. He had responded to Ketamine treatment, failed ECT with further complications including aspiration. He presented from snf with a change in mental status, he was found wandering in the streets soaked in urine. Depression with decompensation of schizophrenia, catatonia. Status post ketamine treatments, history of ECT with aspiration event Treatment per psych team. Urinary retention/BPH Continue Flomax 0.8mg, Finesteride Dove catheter in place. Follow up urology outpatient Dysphagia Tolerating diet, HOB up. OOB for meals. Mr. 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 He had responded to ketamine treatment, failed ECT with further complications including aspiration. He presents with catatonia again including mutism, waxy flexibility. He had one ketamine treatment since he was discharged from the hospital and only partial dose. He was recommended to do weekly ketamine treatments to prevent catatonia. reports he was taking medications as prescribed. Pending clozapine/norclozapine levels. PLAN 1. Admit to S1, Sect 12b, 1:1 unsteady gait 2. will check KUB for constipation as pt very poor historian but reports no BM in several days. Will also check bladder scan post void to rule out overflow incontinence due to urinary retention since reports increase incontinence in past few days. Note that he was straight cath while in the ED. 3. restart medications- abilify, sertraline, clozapine, low dose depakote 4. obtain collateral information 5. aftercare panning. 10/29/24 Pt to restart ketamine hcp in effect on 12 b at present 10/30/2024 Patient now on CV by healthcare proxy. Ketamine protocol ordered for the morning the that was previously quite helpful in treating patients catatonia has not responded previously well to lorazepam had only intermittent response to ECT here proxy does not wish ECT treatment and did respond to ketamine Medications continue that previously had been helpful on recent discharge 10/31/2024 Patient given 1st ketamine treatment had respondent previously to a series no change this point. Encourage food and fluids face anxious in appearance mostly mute minimally responsive catatonic symptoms continue. Continue Abilify mirtazapine sertraline Clozaril 150 mg Continue ketamine trial 11/01/2024 Patient remains generally unchanged. Continue clozapine sertraline mirtazapine Abilify 5 mg pramipexole 0.5 t.i.d. part of previous catatonia algorithm. Ketamine scheduled when possible had previously been quite helpful was previously on a 2 week 2 times a week schedule Urinary retention positive urine culture case discussed hospitalist service. Hospitalist consult called. Plan for antibiotics and Dove catheter and then trial without the catheter as possible check electrolytes in the morning may benefit from fluid replacement. Maintain head of the bed elevated supportive nursing care plan to reduce possible congestion 11/02: Continue current regimen and plans 11/03: Continue current plans and regimen Reason for continued inpatient stay 11/05/24 Pt with some imp more alert tolerating ketamine tx needs assist eating walking flat catatonic cont pts catatonia protocal 11/06/2024 Continue plan of care ketamine 11/07/2024 some mild improvement noted continue Monday ketamine treatment 11/07/2024 Patient continues to show improvement from initial catatonia more verbal try to evaluate mood and psychosis. Need clarity why patient was unable to complete outpatient ketamine 11/08/2024 Gradual improvement continues patient able to ambulate independently Dove catheter continues continue ketamine clozapine mirtazapine Abilify 11/09 no change in presentation; continue treatment plan 11/10 Been doing much better today, walking around, talking. He agrees and says he is doing all right.' patient remembers that it was hard for him to talk yesterday but unable to say why. 11/11/2024 Patient has had 2 days of marked improvement unable to explain behavior prior to admission refusing intravenous ketamine what exactly happened home and why he has negative connotations unable to give a clear history regarding this appears to be responding well to continue ketamine increase Depakote 11/12/2024 Will try discontinue Dove catheter and voiding trial. Monitor for cycling change patient appears to be shifting out of catatonia much orozco range of affect future oriented. Ketamine held today scheduled for 821. Continue Abilify clozapine Depakote try and determine lowest schedule for ketamine that maintains patient very little to go by to guide this decision 10/2024 Continue plan of care monitor for martha or confusion ketamine in the morning monitor response to discontinuing Dove 11/14/2024 Patient's some increased anxiety status post ketamine denies psychotic symptoms offered option of lorazepam PRN Will need to evaluate ketamine dosing 11/15/2024 Increase Abilify to 10 mg lower sertraline to 50 mg monitor response question patient overstimulated by antidepressants check Depakote level check ammonia 11/16/24 Continue plan of care check level 11/17/24 Continue to monitor 11/18/2024 Ketamine on hold gradually increase clozapine and Depakote check level 11/19/2024 Patient seems improved orozco affect calmer and more cooperative less irritable. Question adverse reaction to higher dose of sertraline now decreased responding to increased Depakote. Ketamine infusion scheduled for 11/2111/20/2024 Patient continues on prior algorithm for catatonia which includes Abilify clozapine mirtazapine clozapine. He is also on Depakote Depakote level 28.6 ammonia level unremarkable could decrease Depakote monitor response to ketamine see if we can try and discontinue currently 1 time a week monitor for any adverse effect 11/21/24 dep level low can increase ammonia ok can try and see if ketamine could be held 11/22/24 will try amantadine for eps monitor response 11/27/2024 Ketamine in the morning will try half dosing continue amantadine for EPS continue clozapine and Depakote 11/28/2024 Continue plan of care catatonia markedly improved coordinate discharge 11/29/24 Pt improved fx less lable cont cloizapine amantadine new for eps 11/30 Checked vitals and grossly WNL Nursing reports that patient was irritable today. On approach patient did not want to talk and said I am all set.. Room smelled of urine 12/01 Is quite irritable; today patient got kicked out of OT group which is a 1st. On approach patient said that he is all right and acknowledges that he got angry but does not want to talk about it -ordered p.r.n. Ativan which is helped in the past following ketamine -ordered UA 12/02/2024 Ketamine ordered for the morning patient again it or irritable reactive aggressive unwilling to process emotions and thinking amantadine discontinued may be contributing to irritability agitation was prescribed for EPS. Patient not stable for discharge needs frequent cuing for food fluids internally preoccupied again isolated 12 03 24 Patient seems somewhat improved with ketamine treatment at full dosing this morning he is able to ambulate sit in the kitchen needs assist with showering psychomotor retarded but improved from yesterday limited verbally flat. Amantadine discontinued limited options for EPS given patient history of urinary retention avoiding Cogentin amantadine may have caused irritability check Depakote and Clozaril level working to discharge to a [facility] snf when possible 12/04/24 Patient withdrawn and blunted ketamine against scheduled for tomorrow morning has responded previously unclear why he relapsed again. Increase clozapine will need PICC line or port 12/05/2024 Patient seems improved with to intravenous ketamine treatments this week less deep in the catatonia scale blunted with poverty of speech in minimal recheck activity but definitely significant improvement from days ago some increase range of emotion and less delay in speech Clozapine increased Coordination with [facility]D Reason for continued inpatient stay Substantial Risk for: inability to function and med/psych decompensation Time Spent With Patient Time: Total time managing care of this patient today ____ minutes.
[2024-12-05] MEDS: Triamcinolone Acet 0.1 % Cream 15 GM TUBE 1 APPL TOPICAL (15:32)
[2024-12-05] MEDS: Divalproex Sodium Sprinkles 125 MG CAP.DR.SPR 1000 MG PO (21:11)
[2024-12-05] MEDS: Milk of Magnesia 30 ML ORAL.SUSP 5 ML PO (21:11)
[2024-12-06 08:00] VITALS: BP 120/68; PULSE 89; RESP 16; TEMP 36.3; O2SAT 97
--- NOTE | 2024-12-06 08:38 | P.PNPSI_ITS ---
Subjective Subjective Date of Service: 12/06/24 Reason For Visit: Catatonia Subjective Notes: Conditional Voluntary Healthcare Proxy: Yes Interim History: Patient seen psychiatric follow-up chart reviewed patient seen in treatment planning. The patient continues to show improvement less in the way of catatonic symptoms orozco range of affect maintaining food and nutrition. Patient did require placement of PICC line his midline was no longer functioning case was discussed with patient's father Medication Compliance: Yes Mental Status Exam Mental Status Exam Narrative: Patient casually dressed mood described as okay flat affect constricted ambulating independently some poverty of content denies active SI or HI poverty of content no hallucinations or delusional material noted agreeable with care Limited insight impulse control seems adequate at this time Diagnostics Vital Signs (24Hr): Vital Signs - 24 hr 12/05/24 08:50 12/05/24 09:05 12/05/24 09:20 Temperature 97.4 F Pulse Rate 74 74 75 Respiratory Rate 17 18 18 Blood Pressure 116/72 126/72 121/72 Pulse Oximetry 96 97 99 Oxygen Delivery Method Room Air Room Air Room Air 12/05/24 09:35 12/05/24 09:50 12/05/24 10:05 Temperature 97.2 F Pulse Rate 72 74 72 Respiratory Rate 18 16 16 Blood Pressure 120/66 119/71 124/74 Pulse Oximetry 97 97 97 Oxygen Delivery Method Room Air Room Air Room Air 12/05/24 10:39 12/05/24 20:00 Temperature 97.1 F Pulse Rate 76 76 Respiratory Rate 16 18 Blood Pressure 142/74 H 140/71 H Pulse Oximetry 97 99 Oxygen Delivery Method Room Air Room Air BMI result Body Mass Index 28.9 Labs 11/19/24 10:54 11/19/24 10:54 Imaging Radiology Impressions: ITS Impressions KUB X-Ray 10/28/24 16:45 IMPRESSION: Again seen is a large amount of stool throughout the colon and rectum. Electronically signed by: Jose J Gonzalez MD 10/28/2024 05:20 PM EDT Medications Medications Current Medications Acetaminophen (Acetaminophen 325 Mg Tablet) 650 mg PO Q6H PRN PRN Reason: Headache/Pain, Scale 1-10 Last Admin: 11/01/24 20:01 Dose: 650 mg Al Hydroxide/Mg Hydroxide (Magnesium Hydrox/Alum Hydrox 30 Ml Oral.Susp) 30 ml PO Q6H PRN PRN Reason: Heartburn/Nausea Aripiprazole (Aripiprazole 10 Mg Tablet) 10 mg PO DAILY@1730 [facility] Last Admin: 12/05/24 17:06 Dose: 10 mg Ascorbic Acid (Ascorbic Acid 500 Mg Tablet) 500 mg PO DAILY [facility] Last Admin: 12/05/24 07:42 Dose: 500 mg Clozapine (Clozapine 25 Mg Tablet) 250 mg PO DAILY@1999 [facility] Last Admin: 12/05/24 21:10 Dose: 250 mg Divalproex Sodium (Divalproex Sodium Sprinkles 125 Mg Cap.Dr.Spr) 1,000 mg PO DAILY@1999 [facility] Last Admin: 12/05/24 21:11 Dose: 1,000 mg Ferrous Sulfate (Ferrous Sulfate 324 Mg Tablet.Dr) 324 mg PO DAILY [facility] Last Admin: 12/05/24 07:42 Dose: 324 mg Finasteride (Finasteride 5 Mg Tablet) 5 mg PO DAILY [facility] Last Admin: 12/05/24 07:42 Dose: 5 mg Magnesium Hydroxide (Milk Of Magnesia 30 Ml Oral.Susp) 30 ml PO DAILY PRN PRN Reason: Constipation Magnesium Hydroxide (Milk Of Magnesia 30 Ml Oral.Susp) 5 ml PO BEDTIME [facility] Last Admin: 12/05/24 21:11 Dose: 5 ml Mirtazapine (Mirtazapine 15 Mg Tablet) 15 mg PO BEDTIME [facility] Last Admin: 12/05/24 21:12 Dose: 15 mg Olanzapine (Olanzapine Odt 10 Mg Tab.Rapdis) 5 mg TRANSLINGU BID PRN PRN Reason: agitation Last Admin: 12/01/24 08:14 Dose: 5 mg Polyethylene Glycol (Polyethylene Glycol 3350 17 Gm Powd.Pack) 17 gm PO DAILY [facility] Last Admin: 12/05/24 07:42 Dose: Not Given Pramipexole Dihydrochloride (Pramipexole Di-Hcl 0.25 Mg Tablet) 0.5 mg PO TID [facility] Last Admin: 12/05/24 21:11 Dose: 0.5 mg Senna/Docusate Sodium (Sennosides/Docusate Sodium Tablet) 1 tab PO BID PRN PRN Reason: no BM for more than 3days Sertraline HCl (Sertraline Hcl 50 Mg Tablet) 50 mg PO DAILY [facility] Last Admin: 12/05/24 07:42 Dose: 50 mg Sodium Chloride (0.9 % Sodium Chloride Flush 10 Ml Syringe) 10 ml IVFLUSH QSHIFT [facility] Last Admin: 12/06/24 00:00 Dose: 10 ml Tamsulosin HCl (Tamsulosin Hcl 0.4 Mg Capsule) 0.8 mg PO BEDTIME [facility] Last Admin: 12/05/24 21:11 Dose: 0.8 mg Thiamine HCl (Thiamine Hcl 100 Mg Tablet) 100 mg PO DAILY [facility] Last Admin: 12/05/24 07:41 Dose: 100 mg Trazodone HCl (Trazodone Hcl 50 Mg Tablet) 50 mg PO BEDTIME PRN PRN Reason: Insomnia Last Admin: 11/06/24 21:45 Dose: 50 mg Triamcinolone Acetonide (Triamcinolone Acet 0.1 % Cream 15 Gm Tube) 1 appl TOPICAL BID [facility]; Protocol Last Admin: 12/05/24 21:12 Dose: Not Given Allergies Allergies Allergy/AdvReac Type Severity Reaction Status Date / Time No Known Allergies (NKA) Allergy Unknown NONE Verified 10/27/24 19:26 Assessment & Plan Assessment & Plan (1) Schizoaffective disorder: Status: Acute Code(s): F25.9 - Schizoaffective disorder, unspecified (2) Catatonia: Status: Acute Code(s): F06.1 - Catatonic disorder due to known physiological condition (3) Essential hypertension: Status: Acute Code(s): I10 - Essential (primary) hypertension (4) Urinary retention with incomplete bladder emptying: Status: Acute Code(s): R33.9 - Retention of urine, unspecified Plan Schizoaffective DO/Depression with decompensation /Catatonia Treatment per psychiatric team Currently receiving Ketamine treatments. Plan is most likely meterman ketamine treatments Will need alternative IV access. Patient with poor venous access. Consider PICC line or port. Fungal rash to left buttock Triamcinolone cream BID until clear. Urinary retention/BPH Continue Flomax Monitor for retention. Recent UA negative. Plan Assessment and Plan 59 year-old male with hx of schizoaffective disorder, hypertension, urinary retention, type 2 diabetes, depression recently discharged from on 10/08/2024 after prolonged admission due to treatment resistant catatonia. He had responded to Ketamine treatment, failed ECT with further complications including aspiration. He presented from [facility] with a change in mental status, he was found wandering in the streets soaked in urine. Depression with decompensation of schizophrenia, catatonia. Status post ketamine treatments, history of ECT with aspiration event Treatment per psych team. Urinary retention/BPH Continue Flomax 0.8mg, Finesteride Dove catheter in place. Follow up urology outpatient Dysphagia Tolerating diet, HOB up. OOB for meals. Mr. 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 He had responded to ketamine treatment, failed ECT with further complications including aspiration. He presents with catatonia again including mutism, waxy flexibility. He had one ketamine treatment since he was discharged from the hospital and only partial dose. He was recommended to do weekly ketamine treatments to prevent catatonia. reports he was taking medications as prescribed. Pending clozapine/norclozapine levels. PLAN 1. Admit to , Sect 12b, 1:1 unsteady gait 2. will check KUB for constipation as pt very poor historian but reports no BM in several days. Will also check bladder scan post void to rule out overflow incontinence due to urinary retention since reports increase incontinence in past few days. Note that he was straight cath while in the ED. 3. restart medications- abilify, sertraline, clozapine, low dose depakote 4. obtain collateral information 5. aftercare panning. 10/29/24 Pt to restart ketamine hcp in effect on 12 b at present 10/30/2024 Patient now on CV by healthcare proxy. Ketamine protocol ordered for the morning the that was previously quite helpful in treating patients catatonia has not responded previously well to lorazepam had only intermittent response to ECT here proxy does not wish ECT treatment and did respond to ketamine Medications continue that previously had been helpful on recent discharge 10/31/2024 Patient given 1st ketamine treatment had respondent previously to a series no change this point. Encourage food and fluids face anxious in appearance mostly mute minimally responsive catatonic symptoms continue. Continue Abilify mirtazapine sertraline Clozaril 150 mg Continue ketamine trial 11/01/2024 Patient remains generally unchanged. Continue clozapine sertraline mirtazapine Abilify 5 mg pramipexole 0.5 t.i.d. part of previous catatonia algorithm. Ketamine scheduled when possible had previously been quite helpful was previously on a 2 week 2 times a week schedule Urinary retention positive urine culture case discussed hospitalist service. Hospitalist consult called. Plan for antibiotics and Dove catheter and then trial without the catheter as possible check electrolytes in the morning may benefit from fluid replacement. Maintain head of the bed elevated supportive nursing care plan to reduce possible congestion 11/02: Continue current regimen and plans 11/03: Continue current plans and regimen Reason for continued inpatient stay 11/05/24 Pt with some imp more alert tolerating ketamine tx needs assist eating walking flat catatonic cont pts catatonia protocal 11/06/2024 Continue plan of care ketamine 11/07/2024 some mild improvement noted continue Monday ketamine treatment 11/07/2024 Patient continues to show improvement from initial catatonia more verbal try to evaluate mood and psychosis. Need clarity why patient was unable to complete outpatient ketamine 11/08/2024 Gradual improvement continues patient able to ambulate independently Dove catheter continues continue ketamine clozapine mirtazapine Abilify 11/09 no change in presentation; continue treatment plan 11/10 Been doing much better today, walking around, talking. He agrees and says he is doing all right.' patient remembers that it was hard for him to talk yesterday but unable to say why. 11/11/2024 Patient has had 2 days of marked improvement unable to explain behavior prior to admission refusing intravenous ketamine what exactly happened home and why he has negative connotations unable to give a clear history regarding this appears to be responding well to continue ketamine increase Depakote 11/12/2024 Will try discontinue Dove catheter and voiding trial. Monitor for cycling change patient appears to be shifting out of catatonia much orozco range of affect future oriented. Ketamine held today scheduled for 821. Continue Abilify clozapine Depakote try and determine lowest schedule for ketamine that maintains patient very little to go by to guide this decision 10/2024 Continue plan of care monitor for martha or confusion ketamine in the morning monitor response to discontinuing Dove 11/14/2024 Patient's some increased anxiety status post ketamine denies psychotic symptoms offered option of lorazepam PRN Will need to evaluate ketamine dosing 11/15/2024 Increase Abilify to 10 mg lower sertraline to 50 mg monitor response question patient overstimulated by antidepressants check Depakote level check ammonia 11/16/24 Continue plan of care check level 11/17/24 Continue to monitor 11/18/2024 Ketamine on hold gradually increase clozapine and Depakote check level 11/19/2024 Patient seems improved orozco affect calmer and more cooperative less irritable. Question adverse reaction to higher dose of sertraline now decreased responding to increased Depakote. Ketamine infusion scheduled for 11/2111/20/2024 Patient continues on prior algorithm for catatonia which includes Abilify clozapine mirtazapine clozapine. He is also on Depakote Depakote level 28.6 ammonia level unremarkable could decrease Depakote monitor response to ketamine see if we can try and discontinue currently 1 time a week monitor for any adverse effect 11/21/24 dep level low can increase ammonia ok can try and see if ketamine could be held 11/22/24 will try amantadine for eps monitor response 11/27/2024 Ketamine in the morning will try half dosing continue amantadine for EPS continue clozapine and Depakote 11/28/2024 Continue plan of care catatonia markedly improved coordinate discharge 11/29/24 Pt improved fx less lable cont cloizapine amantadine new for eps 11/30 Checked vitals and grossly WNL Nursing reports that patient was irritable today. On approach patient did not want to talk and said I am all set.. Room smelled of urine 12/01 Is quite irritable; today patient got kicked out of OT group which is a 1st. On approach patient said that he is all right and acknowledges that he got angry but does not want to talk about it -ordered p.r.n. Ativan which is helped in the past following ketamine -ordered UA 12/02/2024 Ketamine ordered for the morning patient again it or irritable reactive aggressive unwilling to process emotions and thinking amantadine discontinued may be contributing to irritability agitation was prescribed for EPS. Patient not stable for discharge needs frequent cuing for food fluids internally preoccupied again isolated 12 03 24 Patient seems somewhat improved with ketamine treatment at full dosing this morning he is able to ambulate sit in the kitchen needs assist with showering psychomotor retarded but improved from yesterday limited verbally flat. Amantadine discontinued limited options for EPS given patient history of urinary retention avoiding Cogentin amantadine may have caused irritability check Depakote and Clozaril level working to discharge to a [facility] when possible 12/04/24 Patient withdrawn and blunted ketamine against scheduled for tomorrow morning has responded previously unclear why he relapsed again. Increase clozapine will need PICC line or port 12/05/2024 Patient seems improved with to intravenous ketamine treatments this week less deep in the catatonia scale blunted with poverty of speech in minimal recheck activity but definitely significant improvement from days ago some increase range of emotion and less delay in speech Clozapine increased Coordination with [facility] 12/06/2024 Patient agreeable placement of PICC line remains with some catatonic symptoms but generally improving needs help and cuing for basic functioning not overly depressed continue clozapine Abilify Depakote part of catatonia protocol scheduled ketamine for next week Reason for continued inpatient stay Substantial Risk for: inability to function, rapid decompensation and med/psych decompensation Time Spent With Patient Time: Total time managing care of this patient today ____ minutes.
[2024-12-06] MEDS: Ferrous Sulfate 324 MG TABLET.DR PO (08:43)
[2024-12-06] MEDS: 0.9 % Sodium Chloride Flush 10 ML SYRINGE IVFLUSH ×3 (08:48→17:02)
--- NOTE | 2024-12-06 11:20 | PC.NURSE ---
When RN attempted to flush pt's R midline for his scheduled 0800 flush, pt's midline appeared to be leaking through the dressing. RN notified provider who advised the midline to be removed. RN is awaiting provider consult to IR nurse for removal.
[2024-12-06 20:00] VITALS: BP 142/67; PULSE 72; RESP 18; TEMP 36.7; O2SAT 96
[2024-12-06] MEDS: Milk of Magnesia 30 ML ORAL.SUSP 5 ML PO (21:03)
[2024-12-06] MEDS: Divalproex Sodium Sprinkles 125 MG CAP.DR.SPR 1000 MG PO (21:04)
[2024-12-07] MEDS: Heparin Sodium,Porcine Flush 50 UNITS, 0.9 % Sodium Chloride Flush 5 ML IVFLUSH ×4 (00:19→21:46)
[2024-12-07] MEDS: 0.9 % Sodium Chloride Flush 10 ML SYRINGE IVFLUSH ×3 (00:21→17:13)
[2024-12-07 08:05] VITALS: BP 130/60; PULSE 87; RESP 16; TEMP 36.3; O2SAT 96
[2024-12-07] MEDS: Ferrous Sulfate 324 MG TABLET.DR PO (08:59)
[2024-12-07] MEDS: Triamcinolone Acet 0.1 % Cream 15 GM TUBE 1 APPL TOPICAL (09:00)
--- NOTE | 2024-12-07 15:05 | P.PNPSI_ITS ---
Subjective Subjective Date of Service: 12/07/24 Reason For Visit: Catatonia Subjective Notes: Conditional Voluntary Healthcare Proxy: Yes Interim History: Seen in OT office. He presented grossly cooperative. Tremor in right arm. Mood alright. Denies SI/HI/AVH. He states that sometimes he worries that people are trying to hurt him. Disorganized processing. Medication Compliance: Yes Attending Groups: No Review of Systems Medical Review of Systems: unchanged Review of Systems Review of Systems Yes Unobtainable due to mental status Mental Status Exam Mental Status Exam Patient Appearance: Disheveled Patient Orientation: Person, Place and Time (Month, year, day of week) Level of Consciousness: Obtunded Patient Behavior: Passive Mood Description: Calm ( good ) Affect Description: Flat Patient Cognition Impaired: Yes Ability to Follow Directions: Fair Speech Pattern: Impoverished Memory Description: Remote Impaired and Recent Impaired Hallucinations: None Delusions: Not Present (none evinced) Thought Content: positive for Thought Blocking Abnormal Motor Activity Signs and Symptoms: Psychomotor Retardation (severe) Judgement and Insight: impaired Diagnostics Vital Signs (24Hr): Vital Signs - 24 hr 12/06/24 20:00 12/07/24 08:05 Temperature 98.1 F 97.3 F Pulse Rate 72 87 Respiratory Rate 18 16 Blood Pressure 142/67 H 130/60 Pulse Oximetry 96 96 Oxygen Delivery Method Room Air Room Air BMI result Body Mass Index 28.9 Labs 11/19/24 10:54 11/19/24 10:54 Imaging Radiology Impressions: ITS Impressions KUB X-Ray 10/28/24 16:45 IMPRESSION: Again seen is a large amount of stool throughout the colon and rectum. Electronically signed by: Jose J Gonzalez MD 10/28/2024 05:20 PM EDT Medications Medications Current Medications Acetaminophen (Acetaminophen 325 Mg Tablet) 650 mg PO Q6H PRN PRN Reason: Headache/Pain, Scale 1-10 Last Admin: 11/01/24 20:01 Dose: 650 mg Al Hydroxide/Mg Hydroxide (Magnesium Hydrox/Alum Hydrox 30 Ml Oral.Susp) 30 ml PO Q6H PRN PRN Reason: Heartburn/Nausea Aripiprazole (Aripiprazole 10 Mg Tablet) 10 mg PO DAILY@1730 KRISTIN Last Admin: 12/06/24 16:35 Dose: 10 mg Ascorbic Acid (Ascorbic Acid 500 Mg Tablet) 500 mg PO DAILY [facility] [place] Last Admin: 12/07/24 08:59 Dose: 500 mg Clozapine (Clozapine 25 Mg Tablet) 250 mg PO DAILY@1999 [facility] [place] Last Admin: 12/06/24 21:04 Dose: 250 mg Heparin Sodium (Porcine) 50 (units/ Sodium Chloride 5 ml) 0 units IVFLUSH TID [facility] [place] Last Admin: 12/07/24 14:24 Dose: 50 unit Divalproex Sodium (Divalproex Sodium Sprinkles 125 Mg Cap.) 1,000 mg PO DAILY@1999 [facility] [place] Last Admin: 12/06/24 21:04 Dose: 1,000 mg Ferrous Sulfate (Ferrous Sulfate 324 Mg Tablet.Dr) 324 mg PO DAILY [facility] [place] Last Admin: 12/07/24 08:59 Dose: 324 mg Finasteride (Finasteride 5 Mg Tablet) 5 mg PO DAILY [facility] [place] Last Admin: 12/07/24 08:59 Dose: 5 mg Magnesium Hydroxide (Milk Of Magnesia 30 Ml Oral.Susp) 30 ml PO DAILY PRN PRN Reason: Constipation Magnesium Hydroxide (Milk Of Magnesia 30 Ml Oral.Susp) 5 ml PO BEDTIME [facility] [place] Last Admin: 12/06/24 21:03 Dose: 5 ml Mirtazapine (Mirtazapine 15 Mg Tablet) 15 mg PO BEDTIME [facility] [place] Last Admin: 12/06/24 21:06 Dose: 15 mg Olanzapine (Olanzapine Odt 10 Mg Tab.Rapdis) 5 mg TRANSLINGU BID PRN PRN Reason: agitation Last Admin: 12/01/24 08:14 Dose: 5 mg Polyethylene Glycol (Polyethylene Glycol 3350 17 Gm Powd.Pack) 17 gm PO DAILY [facility] [place] Last Admin: 12/07/24 08:58 Dose: 17 gm Pramipexole Dihydrochloride (Pramipexole Di-Hcl 0.25 Mg Tablet) 0.5 mg PO TID [facility] [place] Last Admin: 12/07/24 14:24 Dose: 0.5 mg Senna/Docusate Sodium (Sennosides/Docusate Sodium Tablet) 1 tab PO BID PRN PRN Reason: no BM for more than 3days Sertraline HCl (Sertraline Hcl 50 Mg Tablet) 50 mg PO DAILY [facility] [place] Last Admin: 12/07/24 08:59 Dose: 50 mg Sodium Chloride (0.9 % Sodium Chloride Flush 10 Ml Syringe) 10 ml IVFLUSH QSHIFT [facility] [place] Last Admin: 12/07/24 09:01 Dose: 10 ml Tamsulosin HCl (Tamsulosin Hcl 0.4 Mg Capsule) 0.8 mg PO BEDTIME [facility] [place] Last Admin: 12/06/24 21:05 Dose: 0.8 mg Thiamine HCl (Thiamine Hcl 100 Mg Tablet) 100 mg PO DAILY [facility] [place] Last Admin: 12/07/24 08:59 Dose: 100 mg Trazodone HCl (Trazodone Hcl 50 Mg Tablet) 50 mg PO BEDTIME PRN PRN Reason: Insomnia Last Admin: 11/06/24 21:45 Dose: 50 mg Triamcinolone Acetonide (Triamcinolone Acet 0.1 % Cream 15 Gm Tube) 1 appl TOPICAL BID [facility] [place]; Protocol Last Admin: 12/07/24 09:00 Dose: 1 appl Allergies Allergies Allergy/AdvReac Type Severity Reaction Status Date / Time No Known Allergies (NKA) Allergy Unknown NONE Verified 10/27/24 19:26 Assessment & Plan Assessment & Plan (1) Schizoaffective disorder: Status: Acute Code(s): F25.9 - Schizoaffective disorder, unspecified (2) Catatonia: Status: Acute Code(s): F06.1 - Catatonic disorder due to known physiological condition (3) Essential hypertension: Status: Acute Code(s): I10 - Essential (primary) hypertension (4) Urinary retention with incomplete bladder emptying: Status: Acute Code(s): R33.9 - Retention of urine, unspecified Plan Schizoaffective DO/Depression with decompensation /Catatonia Treatment per psychiatric team Currently receiving Ketamine treatments. 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 Patient with poor venous access. Consider PICC line or port. Fungal rash to left buttock Triamcinolone cream BID until clear. Urinary retention/BPH Continue Flomax Monitor for retention. Recent UA negative. Plan Assessment and Plan 59 year-old male with hx of schizoaffective disorder, hypertension, urinary retention, type 2 diabetes, depression recently discharged from on 10/08/2024 after prolonged admission due to treatment resistant catatonia. He had responded to Ketamine treatment, failed ECT with further complications including aspiration. He presented from snf with a change in mental status, he was found wandering in the streets soaked in urine. Depression with decompensation of schizophrenia, catatonia. Status post ketamine treatments, history of ECT with aspiration event Treatment per psych team. Urinary retention/BPH Continue Flomax 0.8mg, Finesteride Dove catheter in place. Follow up urology outpatient Dysphagia Tolerating diet, HOB up. OOB for meals. Mr. 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 He had responded to ketamine treatment, failed ECT with further complications including aspiration. He presents with catatonia again including mutism, waxy flexibility. He had one ketamine treatment since he was discharged from the hospital and only partial dose. He was recommended to do weekly ketamine treatments to prevent catatonia. reports he was taking medications as prescribed. Pending clozapine/norclozapine levels. PLAN 1. Admit to , Sect 12b, 1:1 unsteady gait 2. will check KUB for constipation as pt very poor historian but reports no BM in several days. Will also check bladder scan post void to rule out overflow incontinence due to urinary retention since reports increase incontinence in past few days. Note that he was straight cath while in the ED. 3. restart medications- abilify, sertraline, clozapine, low dose depakote 4. obtain collateral information 5. aftercare panning. 10/29/24 Pt to restart ketamine hcp in effect on 12 b at present 10/30/2024 Patient now on CV by healthcare proxy. Ketamine protocol ordered for the morning the that was previously quite helpful in treating patients catatonia has not responded previously well to lorazepam had only intermittent response to ECT here proxy does not wish ECT treatment and did respond to ketamine Medications continue that previously had been helpful on recent discharge 10/31/2024 Patient given 1st ketamine treatment had respondent previously to a series no change this point. Encourage food and fluids face anxious in appearance mostly mute minimally responsive catatonic symptoms continue. Continue Abilify mirtazapine sertraline Clozaril 150 mg Continue ketamine trial 11/01/2024 Patient remains generally unchanged. Continue clozapine sertraline mirtazapine Abilify 5 mg pramipexole 0.5 t.i.d. part of previous catatonia algorithm. Ketamine scheduled when possible had previously been quite helpful was previously on a 2 week 2 times a week schedule Urinary retention positive urine culture case discussed hospitalist service. Hospitalist consult called. Plan for antibiotics and Dove catheter and then trial without the catheter as possible check electrolytes in the morning may benefit from fluid replacement. Maintain head of the bed elevated supportive nursing care plan to reduce possible congestion 11/02: Continue current regimen and plans 11/03: Continue current plans and regimen Reason for continued inpatient stay 11/05/24 Pt with some imp more alert tolerating ketamine tx needs assist eating walking flat catatonic cont pts catatonia protocal 11/06/2024 Continue plan of care ketamine 11/07/2024 some mild improvement noted continue Monday ketamine treatment 11/07/2024 Patient continues to show improvement from initial catatonia more verbal try to evaluate mood and psychosis. Need clarity why patient was unable to complete outpatient ketamine 11/08/2024 Gradual improvement continues patient able to ambulate independently Dove catheter continues continue ketamine clozapine mirtazapine Abilify 11/09 no change in presentation; continue treatment plan 11/10 Been doing much better today, walking around, talking. He agrees and says he is doing all right.' patient remembers that it was hard for him to talk yesterday but unable to say why. 11/11/2024 Patient has had 2 days of marked improvement unable to explain behavior prior to admission refusing intravenous ketamine what exactly happened home and why he has negative connotations unable to give a clear history regarding this appears to be responding well to continue ketamine increase Depakote 11/12/2024 Will try discontinue Dove catheter and voiding trial. Monitor for cycling change patient appears to be shifting out of catatonia much orozco range of affect future oriented. Ketamine held today scheduled for 821. Continue Abilify clozapine Depakote try and determine lowest schedule for ketamine that maintains patient very little to go by to guide this decision 10/2024 Continue plan of care monitor for martha or confusion ketamine in the morning monitor response to discontinuing Dove 11/14/2024 Patient's some increased anxiety status post ketamine denies psychotic symptoms offered option of lorazepam PRN Will need to evaluate ketamine dosing 11/15/2024 Increase Abilify to 10 mg lower sertraline to 50 mg monitor response question patient overstimulated by antidepressants check Depakote level check ammonia 11/16/24 Continue plan of care check level 11/17/24 Continue to monitor 11/18/2024 Ketamine on hold gradually increase clozapine and Depakote check level 11/19/2024 Patient seems improved orozco affect calmer and more cooperative less irritable. Question adverse reaction to higher dose of sertraline now decreased responding to increased Depakote. Ketamine infusion scheduled for 11/2111/20/2024 Patient continues on prior algorithm for catatonia which includes Abilify clozapine mirtazapine clozapine. He is also on Depakote Depakote level 28.6 ammonia level unremarkable could decrease Depakote monitor response to ketamine see if we can try and discontinue currently 1 time a week monitor for any adverse effect 11/21/24 dep level low can increase ammonia ok can try and see if ketamine could be held 11/22/24 will try amantadine for eps monitor response 11/27/2024 Ketamine in the morning will try half dosing continue amantadine for EPS continue clozapine and Depakote 11/28/2024 Continue plan of care catatonia markedly improved coordinate discharge 11/29/24 Pt improved fx less lable cont cloizapine amantadine new for eps 11/30 Checked vitals and grossly WNL Nursing reports that patient was irritable today. On approach patient did not want to talk and said I am all set.. Room smelled of urine 12/01 Is quite irritable; today patient got kicked out of OT group which is a 1st. On approach patient said that he is all right and acknowledges that he got angry but does not want to talk about it -ordered p.r.n. Ativan which is helped in the past following ketamine -ordered UA 12/02/2024 Ketamine ordered for the morning patient again it or irritable reactive aggressive unwilling to process emotions and thinking amantadine discontinued may be contributing to irritability agitation was prescribed for EPS. Patient not stable for discharge needs frequent cuing for food fluids internally preoccupied again isolated 12 03 24 Patient seems somewhat improved with ketamine treatment at full dosing this morning he is able to ambulate sit in the kitchen needs assist with showering psychomotor retarded but improved from yesterday limited verbally flat. Amantadine discontinued limited options for EPS given patient history of urinary retention avoiding Cogentin amantadine may have caused irritability check Depakote and Clozaril level working to discharge to a [facility] snf when possible 12/04/24 Patient withdrawn and blunted ketamine against scheduled for tomorrow morning has responded previously unclear why he relapsed again. Increase clozapine will need PICC line or port 12/05/2024 Patient seems improved with to intravenous ketamine treatments this week less deep in the catatonia scale blunted with poverty of speech in minimal recheck activity but definitely significant improvement from days ago some increase range of emotion and less delay in speech Clozapine increased Coordination with [facility] 12/06/2024 Patient agreeable placement of PICC line remains with some catatonic symptoms but generally improving needs help and cuing for basic functioning not overly depressed continue clozapine Abilify Depakote part of catatonia protocol scheduled ketamine for next week 12/07: no change today Patient educated on: diagnosis Informed Consent: further education needed Reason for continued inpatient stay Substantial Risk for: rapid decompensation Time Spent With Patient Time: Total time managing care of this patient today __15__ minutes.
[2024-12-07 20:00] VITALS: BP 138/67; PULSE 75; RESP 16; TEMP 36.2; O2SAT 96
[2024-12-07] MEDS: Milk of Magnesia 30 ML ORAL.SUSP 5 ML PO (21:41)
[2024-12-07] MEDS: Divalproex Sodium Sprinkles 125 MG CAP.DR.SPR 1000 MG PO (21:42)
[2024-12-08] MEDS: 0.9 % Sodium Chloride Flush 10 ML SYRINGE IVFLUSH ×2 (00:41→08:46)
[2024-12-08 07:55] VITALS: BP 127/64; PULSE 75; RESP 18; TEMP 36.6; O2SAT 97
[2024-12-08 08:27] LABS: Neut%MD 64.1 %; WBCANC 6.4 X10*3/uL
[2024-12-08] MEDS: Ferrous Sulfate 324 MG TABLET.DR PO (08:44)
[2024-12-08] MEDS: Heparin Sodium,Porcine Flush 50 UNITS, 0.9 % Sodium Chloride Flush 5 ML IVFLUSH ×3 (08:59→21:25)
--- NOTE | 2024-12-08 12:54 | HO.PSYCHPN ---
Subjective Subjective Date of Service: 12/08/24 Reason For Visit: Catatonia Subjective Notes: Conditional Voluntary Healthcare Proxy: Yes Guardianship: No Medical Problems Affecting Mental Status: No Interim History: Patient seen in the Day area, sitting by himself calmly. He was brought out there to eat lunch and has lingered afterwards. Significant psychomotor slowing evident. He did respond to queries. He said that he was feeling OK, and denied any immediate concerns. He couldn't recall what he had just eaten for lunch. Medication Compliance: Yes Side effects from medications: No Attending Groups: No Review of Systems Acute medical concerns: No Medical Review of Systems: unchanged Mental Status Exam Mental Status Exam Narrative: Patient Appearance: Disheveled Patient Orientation: Person, Place and Time (Month, year, day of week) Level of Consciousness: Obtunded Patient Behavior: Passive Mood Description: Calm ( good ) Affect Description: Flat Patient Cognition Impaired: Yes Ability to Follow Directions: Fair Speech Pattern: Impoverished Memory Description: Remote Impaired and Recent Impaired Hallucinations: None Delusions: Not Present (none evinced) Thought Content: positive for Thought Blocking Abnormal Motor Activity Signs and Symptoms: Psychomotor Retardation (severe) Judgement and Insight: impaired Diagnostics Vital Signs (24Hr): Vital Signs - 24 hr 12/07/24 20:00 12/08/24 07:55 Temperature 97.2 F 97.9 F Pulse Rate 75 75 Respiratory Rate 16 18 Blood Pressure 138/67 127/64 Pulse Oximetry 96 97 Oxygen Delivery Method Room Air Room Air BMI result Body Mass Index 28.9 Labs 11/19/24 10:54 11/19/24 10:54 Labs: Laboratory Results - last 48 hr 12/08/24 07:58 Absolute Neuts (auto) 4.1 Imaging Radiology Impressions: ITS Impressions KUB X-Ray 10/28/24 16:45 IMPRESSION: Again seen is a large amount of stool throughout the colon and rectum. Electronically signed by: Jose J Gonzalez MD 10/28/2024 05:20 PM EDT Medications Medications Current Medications Acetaminophen (Acetaminophen 325 Mg Tablet) 650 mg PO Q6H PRN PRN Reason: Headache/Pain, Scale 1-10 Last Admin: 11/01/24 20:01 Dose: 650 mg Al Hydroxide/Mg Hydroxide (Magnesium Hydrox/Alum Hydrox 30 Ml Oral.Susp) 30 ml PO Q6H PRN PRN Reason: Heartburn/Nausea Aripiprazole (Aripiprazole 10 Mg Tablet) 10 mg PO DAILY@1730 [facility] Last Admin: 12/07/24 17:11 Dose: 10 mg Ascorbic Acid (Ascorbic Acid 500 Mg Tablet) 500 mg PO DAILY [facility] Last Admin: 12/08/24 08:44 Dose: 500 mg Clozapine (Clozapine 25 Mg Tablet) 250 mg PO DAILY@1999 [facility] Last Admin: 12/07/24 21:43 Dose: 250 mg Heparin Sodium (Porcine) 50 (units/ Sodium Chloride 5 ml) 0 units IVFLUSH TID [facility] Last Admin: 12/08/24 08:59 Dose: 5 unit Divalproex Sodium (Divalproex Sodium Sprinkles 125 Mg Cap.Spr) 1,000 mg PO DAILY@1999 [facility] Last Admin: 12/07/24 21:42 Dose: 1,000 mg Ferrous Sulfate (Ferrous Sulfate 324 Mg Tablet.) 324 mg PO DAILY [facility] Last Admin: 12/08/24 08:44 Dose: 324 mg Finasteride (Finasteride 5 Mg Tablet) 5 mg PO DAILY [facility] Last Admin: 12/08/24 08:44 Dose: 5 mg Magnesium Hydroxide (Milk Of Magnesia 30 Ml Oral.Susp) 30 ml PO DAILY PRN PRN Reason: Constipation Magnesium Hydroxide (Milk Of Magnesia 30 Ml Oral.Susp) 5 ml PO BEDTIME [facility] Last Admin: 12/07/24 21:41 Dose: 5 ml Mirtazapine (Mirtazapine 15 Mg Tablet) 15 mg PO BEDTIME [facility] Last Admin: 12/07/24 21:45 Dose: 15 mg Olanzapine (Olanzapine Odt 10 Mg Tab.Rapdis) 5 mg TRANSLINGU BID PRN PRN Reason: agitation Last Admin: 12/01/24 08:14 Dose: 5 mg Polyethylene Glycol (Polyethylene Glycol 3350 17 Gm Powd.Pack) 17 gm PO DAILY [facility] Last Admin: 12/08/24 08:44 Dose: 17 gm Pramipexole Dihydrochloride (Pramipexole Di-Hcl 0.25 Mg Tablet) 0.5 mg PO TID [facility] Last Admin: 12/08/24 08:44 Dose: 0.5 mg Senna/Docusate Sodium (Sennosides/Docusate Sodium Tablet) 1 tab PO BID PRN PRN Reason: no BM for more than 3days Sertraline HCl (Sertraline Hcl 50 Mg Tablet) 50 mg PO DAILY [facility] Last Admin: 12/08/24 08:44 Dose: 50 mg Tamsulosin HCl (Tamsulosin Hcl 0.4 Mg Capsule) 0.8 mg PO BEDTIME [facility] Last Admin: 12/07/24 21:42 Dose: 0.8 mg Thiamine HCl (Thiamine Hcl 100 Mg Tablet) 100 mg PO DAILY [facility] Last Admin: 12/08/24 08:44 Dose: 100 mg Trazodone HCl (Trazodone Hcl 50 Mg Tablet) 50 mg PO BEDTIME PRN PRN Reason: Insomnia Last Admin: 11/06/24 21:45 Dose: 50 mg Triamcinolone Acetonide (Triamcinolone Acet 0.1 % Cream 15 Gm Tube) 1 appl TOPICAL BID [facility]; Protocol Last Admin: 12/08/24 09:31 Dose: Not Given Allergies Allergies Allergy/AdvReac Type Severity Reaction Status Date / Time No Known Allergies (NKA) Allergy Unknown NONE Verified 10/27/24 19:26 Assessment & Plan Assessment & Plan (1) Schizoaffective disorder: Status: Acute Code(s): F25.9 - Schizoaffective disorder, unspecified (2) Catatonia: Status: Acute Code(s): F06.1 - Catatonic disorder due to known physiological condition (3) Essential hypertension: Status: Acute Code(s): I10 - Essential (primary) hypertension (4) Urinary retention with incomplete bladder emptying: Status: Acute Code(s): R33.9 - Retention of urine, unspecified Plan Schizoaffective DO/Depression with decompensation /Catatonia Treatment per psychiatric team Currently receiving Ketamine treatments. 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 Patient with poor venous access. Consider PICC line or port. Fungal rash to left buttock Triamcinolone cream BID until clear. Urinary retention/BPH Continue Flomax Monitor for retention. Recent UA negative. Plan Assessment and Plan 59 year-old male with hx of schizoaffective disorder, hypertension, urinary retention, type 2 diabetes, depression recently discharged from on 10/08/2024 after prolonged admission due to treatment resistant catatonia. He had responded to Ketamine treatment, failed ECT with further complications including aspiration. He presented from snf with a change in mental status, he was found wandering in the streets soaked in urine. Depression with decompensation of schizophrenia, catatonia. Status post ketamine treatments, history of ECT with aspiration event Treatment per psych team. Urinary retention/BPH Continue Flomax 0.8mg, Finesteride Dove catheter in place. Follow up urology outpatient Dysphagia Tolerating diet, HOB up. OOB for meals. Mr. 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 He had responded to ketamine treatment, failed ECT with further complications including aspiration. He presents with catatonia again including mutism, waxy flexibility. He had one ketamine treatment since he was discharged from the hospital and only partial dose. He was recommended to do weekly ketamine treatments to prevent catatonia. reports he was taking medications as prescribed. Pending clozapine/norclozapine levels. PLAN 1. Admit to , Sect 12b, 1:1 unsteady gait 2. will check KUB for constipation as pt very poor historian but reports no BM in several days. Will also check bladder scan post void to rule out overflow incontinence due to urinary retention since reports increase incontinence in past few days. Note that he was straight cath while in the ED. 3. restart medications- abilify, sertraline, clozapine, low dose depakote 4. obtain collateral information 5. aftercare panning. 10/29/24 Pt to restart ketamine hcp in effect on 12 b at present 10/30/2024 Patient now on CV by healthcare proxy. Ketamine protocol ordered for the morning the that was previously quite helpful in treating patients catatonia has not responded previously well to lorazepam had only intermittent response to ECT here proxy does not wish ECT treatment and did respond to ketamine Medications continue that previously had been helpful on recent discharge 10/31/2024 Patient given 1st ketamine treatment had respondent previously to a series no change this point. Encourage food and fluids face anxious in appearance mostly mute minimally responsive catatonic symptoms continue. Continue Abilify mirtazapine sertraline Clozaril 150 mg Continue ketamine trial 11/01/2024 Patient remains generally unchanged. Continue clozapine sertraline mirtazapine Abilify 5 mg pramipexole 0.5 t.i.d. part of previous catatonia algorithm. Ketamine scheduled when possible had previously been quite helpful was previously on a 2 week 2 times a week schedule Urinary retention positive urine culture case discussed hospitalist service. Hospitalist consult called. Plan for antibiotics and Dove catheter and then trial without the catheter as possible check electrolytes in the morning may benefit from fluid replacement. Maintain head of the bed elevated supportive nursing care plan to reduce possible congestion 11/02: Continue current regimen and plans 11/03: Continue current plans and regimen Reason for continued inpatient stay 11/05/24 Pt with some imp more alert tolerating ketamine tx needs assist eating walking flat catatonic cont pts catatonia protocal 11/06/2024 Continue plan of care ketamine 11/07/2024 some mild improvement noted continue Monday ketamine treatment 11/07/2024 Patient continues to show improvement from initial catatonia more verbal try to evaluate mood and psychosis. Need clarity why patient was unable to complete outpatient ketamine 11/08/2024 Gradual improvement continues patient able to ambulate independently Dove catheter continues continue ketamine clozapine mirtazapine Abilify 11/09 no change in presentation; continue treatment plan 11/10 Been doing much better today, walking around, talking. He agrees and says he is doing all right.' patient remembers that it was hard for him to talk yesterday but unable to say why. 11/11/2024 Patient has had 2 days of marked improvement unable to explain behavior prior to admission refusing intravenous ketamine what exactly happened home and why he has negative connotations unable to give a clear history regarding this appears to be responding well to continue ketamine increase Depakote 11/12/2024 Will try discontinue Dove catheter and voiding trial. Monitor for cycling change patient appears to be shifting out of catatonia much orozco range of affect future oriented. Ketamine held today scheduled for 821. Continue Abilify clozapine Depakote try and determine lowest schedule for ketamine that maintains patient very little to go by to guide this decision 10/2024 Continue plan of care monitor for martha or confusion ketamine in the morning monitor response to discontinuing Dove 11/14/2024 Patient's some increased anxiety status post ketamine denies psychotic symptoms offered option of lorazepam PRN Will need to evaluate ketamine dosing 11/15/2024 Increase Abilify to 10 mg lower sertraline to 50 mg monitor response question patient overstimulated by antidepressants check Depakote level check ammonia 11/16/24 Continue plan of care check level 11/17/24 Continue to monitor 11/18/2024 Ketamine on hold gradually increase clozapine and Depakote check level 11/19/2024 Patient seems improved orozco affect calmer and more cooperative less irritable. Question adverse reaction to higher dose of sertraline now decreased responding to increased Depakote. Ketamine infusion scheduled for 11/2111/20/2024 Patient continues on prior algorithm for catatonia which includes Abilify clozapine mirtazapine clozapine. He is also on Depakote Depakote level 28.6 ammonia level unremarkable could decrease Depakote monitor response to ketamine see if we can try and discontinue currently 1 time a week monitor for any adverse effect 11/21/24 dep level low can increase ammonia ok can try and see if ketamine could be held 11/22/24 will try amantadine for eps monitor response 11/27/2024 Ketamine in the morning will try half dosing continue amantadine for EPS continue clozapine and Depakote 11/28/2024 Continue plan of care catatonia markedly improved coordinate discharge 11/29/24 Pt improved fx less lable cont cloizapine amantadine new for eps 11/30 Checked vitals and grossly WNL Nursing reports that patient was irritable today. On approach patient did not want to talk and said I am all set.. Room smelled of urine 12/01 Is quite irritable; today patient got kicked out of OT group which is a 1st. On approach patient said that he is all right and acknowledges that he got angry but does not want to talk about it -ordered p.r.n. Ativan which is helped in the past following ketamine -ordered UA 12/02/2024 Ketamine ordered for the morning patient again it or irritable reactive aggressive unwilling to process emotions and thinking amantadine discontinued may be contributing to irritability agitation was prescribed for EPS. Patient not stable for discharge needs frequent cuing for food fluids internally preoccupied again isolated 12 03 24 Patient seems somewhat improved with ketamine treatment at full dosing this morning he is able to ambulate sit in the kitchen needs assist with showering psychomotor retarded but improved from yesterday limited verbally flat. Amantadine discontinued limited options for EPS given patient history of urinary retention avoiding Cogentin amantadine may have caused irritability check Depakote and Clozaril level working to discharge to a [facility] snf when possible 12/04/24 Patient withdrawn and blunted ketamine against scheduled for tomorrow morning has responded previously unclear why he relapsed again. Increase clozapine will need PICC line or port 12/05/2024 Patient seems improved with to intravenous ketamine treatments this week less deep in the catatonia scale blunted with poverty of speech in minimal recheck activity but definitely significant improvement from days ago some increase range of emotion and less delay in speech Clozapine increased Coordination with [facility] 12/06/2024 Patient agreeable placement of PICC line remains with some catatonic symptoms but generally improving needs help and cuing for basic functioning not overly depressed continue clozapine Abilify Depakote part of catatonia protocol scheduled ketamine for next week 12/07, 12/08: no change today Patient educated on: diagnosis and medication risk/benefits Informed Consent: further education needed Reason for continued inpatient stay Substantial Risk for: inability to function, rapid decompensation and med/psych decompensation Time Spent With Patient Time: Total time managing care of this patient today __15__ minutes.
[2024-12-08 13:04] LABS: Neut%MD 63.1 %; WBCANC 6.0 X10*3/uL
[2024-12-08 19:50] VITALS: BP 106/52; O2SAT 98
[2024-12-08 19:51] VITALS: BP 106/52; PULSE 78; RESP 18; TEMP 36.4; O2SAT 98
[2024-12-08] MEDS: Milk of Magnesia 30 ML ORAL.SUSP 5 ML PO (21:23)
[2024-12-08] MEDS: Divalproex Sodium Sprinkles 125 MG CAP.DR.SPR 1000 MG PO (21:24)
[2024-12-09 08:40] VITALS: BP 113/61; PULSE 88; RESP 16; TEMP 36.1; O2SAT 97
[2024-12-09] MEDS: Heparin Sodium,Porcine Flush 50 UNITS, 0.9 % Sodium Chloride Flush 5 ML IVFLUSH ×3 (08:47→21:27)
[2024-12-09] MEDS: Ferrous Sulfate 324 MG TABLET.DR PO (08:47)
--- NOTE | 2024-12-09 17:09 | PC.NURSE ---
Assumed care pt. at 0700. Received report that pt has PICC R UE. Line is patent, flushing, positive blood return. Asymptomatic.
[2024-12-09] MEDS: Triamcinolone Acet 0.1 % Cream 15 GM TUBE 1 APPL TOPICAL (18:25)
[2024-12-09 20:00] VITALS: BP 146/68; PULSE 84; RESP 18; TEMP 36.4; O2SAT 97
[2024-12-09] MEDS: Divalproex Sodium Sprinkles 125 MG CAP.DR.SPR 1000 MG PO (21:19)
[2024-12-09] MEDS: Milk of Magnesia 30 ML ORAL.SUSP 5 ML PO (21:20)
--- NOTE | 2024-12-09 22:40 | P.PNPSI_ITS ---
Subjective Subjective Date of Service: 12/09/24 Reason For Visit: Catatonia Subjective Notes: Conditional Voluntary Healthcare Proxy: Yes Interim History: Patient seen psychiatric follow-up had PICC line placed. Patient agreeable to ketamine in the morning remains depressed withdrawn flat. His able to get out of bed but needs much coaxing to function Medication Compliance: Yes Mental Status Exam Mental Status Exam Narrative: Patient Appearance: Disheveled Patient Orientation: Person, Place and Time (Month, year, day of week) Level of Consciousness: Obtunded Patient Behavior: Passive Mood Description: Calm ( good ) Affect Description: Flat Patient Cognition Impaired: Yes Ability to Follow Directions: Fair Speech Pattern: Impoverished Memory Description: Remote Impaired and Recent Impaired Hallucinations: None Delusions: Not expressed Thought Content: positive for Thought Blocking Abnormal Motor Activity Signs and Symptoms: Psychomotor Retardation (severe) Judgement and Insight: impaired Diagnostics Vital Signs (24Hr): Vital Signs - 24 hr 12/09/24 08:40 Temperature 97.0 F Pulse Rate 88 Respiratory Rate 16 Blood Pressure 113/61 Pulse Oximetry 97 Oxygen Delivery Method Room Air BMI result Body Mass Index 28.9 Labs 11/19/24 10:54 11/19/24 10:54 Labs: Laboratory Results - last 48 hr 12/08/24 12/08/24 07:58 12:55 Absolute Neuts (auto) 4.1 3.8 Imaging Radiology Impressions: ITS Impressions KUB X-Ray 10/28/24 16:45 IMPRESSION: Again seen is a large amount of stool throughout the colon and rectum. Electronically signed by: Jose J Gonzalez MD 10/28/2024 05:20 PM EDT Medications Medications Current Medications Acetaminophen (Acetaminophen 325 Mg Tablet) 650 mg PO Q6H PRN PRN Reason: Headache/Pain, Scale 1-10 Last Admin: 11/01/24 20:01 Dose: 650 mg Al Hydroxide/Mg Hydroxide (Magnesium Hydrox/Alum Hydrox 30 Ml Oral.Susp) 30 ml PO Q6H PRN PRN Reason: Heartburn/Nausea Aripiprazole (Aripiprazole 10 Mg Tablet) 10 mg PO DAILY@1730 [facility] Last Admin: 12/09/24 18:30 Dose: 10 mg Ascorbic Acid (Ascorbic Acid 500 Mg Tablet) 500 mg PO DAILY [facility] Last Admin: 12/09/24 08:47 Dose: 500 mg Clozapine 200 mg/ Clozapine 50 (mg) 250 mg PO DAILY@1999 [facility] Last Admin: 12/09/24 21:20 Dose: 250 mg Heparin Sodium (Porcine) 50 (units/ Sodium Chloride 5 ml) 0 units IVFLUSH TID [facility] Last Admin: 12/09/24 21:27 Dose: 50 unit Divalproex Sodium (Divalproex Sodium Sprinkles 125 Mg Cap.) 1,000 mg PO DAILY@1999 [facility] Last Admin: 12/09/24 21:19 Dose: 1,000 mg Ferrous Sulfate (Ferrous Sulfate 324 Mg Tablet.) 324 mg PO DAILY [facility] Last Admin: 12/09/24 08:47 Dose: 324 mg Finasteride (Finasteride 5 Mg Tablet) 5 mg PO DAILY [facility] Last Admin: 12/09/24 08:47 Dose: 5 mg Ketamine HCl 45 mg/ Sodium (Chloride) 4.5 mls @ 4.5 mls/hr IV ONCE ONE Stop: 12/10/24 07:31 Ketamine HCl 45 mg/ Sodium (Chloride) 4.5 mls @ 4.5 mls/hr IV ONCE ONE Stop: 12/12/24 07:31 Magnesium Hydroxide (Milk Of Magnesia 30 Ml Oral.Susp) 30 ml PO DAILY PRN PRN Reason: Constipation Magnesium Hydroxide (Milk Of Magnesia 30 Ml Oral.Susp) 5 ml PO BEDTIME [facility] Last Admin: 12/09/24 21:20 Dose: 5 ml Mirtazapine (Mirtazapine 7.5 Mg Tablet) 22.5 mg PO BEDTIME [facility] Last Admin: 12/09/24 21:20 Dose: 22.5 mg Olanzapine (Olanzapine Odt 10 Mg Tab.Rapdis) 5 mg TRANSLINGU BID PRN PRN Reason: agitation Last Admin: 12/01/24 08:14 Dose: 5 mg Polyethylene Glycol (Polyethylene Glycol 3350 17 Gm Powd.Pack) 17 gm PO DAILY [facility] Last Admin: 12/09/24 08:47 Dose: 17 gm Pramipexole Dihydrochloride (Pramipexole Di-Hcl 0.25 Mg Tablet) 0.5 mg PO TID [facility] Last Admin: 12/09/24 21:20 Dose: 0.5 mg Senna/Docusate Sodium (Sennosides/Docusate Sodium Tablet) 1 tab PO BID PRN PRN Reason: no BM for more than 3days Sertraline HCl (Sertraline Hcl 50 Mg Tablet) 50 mg PO DAILY [facility] Last Admin: 12/09/24 08:47 Dose: 50 mg Tamsulosin HCl (Tamsulosin Hcl 0.4 Mg Capsule) 0.8 mg PO BEDTIME [facility] Last Admin: 12/09/24 21:19 Dose: 0.8 mg Thiamine HCl (Thiamine Hcl 100 Mg Tablet) 100 mg PO DAILY [facility] Last Admin: 12/09/24 08:47 Dose: 100 mg Trazodone HCl (Trazodone Hcl 50 Mg Tablet) 50 mg PO BEDTIME PRN PRN Reason: Insomnia Last Admin: 11/06/24 21:45 Dose: 50 mg Triamcinolone Acetonide (Triamcinolone Acet 0.1 % Cream 15 Gm Tube) 1 appl TOPICAL BID [facility]; Protocol Last Admin: 12/09/24 21:32 Dose: Not Given Allergies Allergies Allergy/AdvReac Type Severity Reaction Status Date / Time No Known Allergies (NKA) Allergy Unknown NONE Verified 10/27/24 19:26 Assessment & Plan Assessment & Plan (1) Schizoaffective disorder: Status: Acute Code(s): F25.9 - Schizoaffective disorder, unspecified (2) Catatonia: Status: Acute Code(s): F06.1 - Catatonic disorder due to known physiological condition (3) Essential hypertension: Status: Acute Code(s): I10 - Essential (primary) hypertension (4) Urinary retention with incomplete bladder emptying: Status: Acute Code(s): R33.9 - Retention of urine, unspecified Plan Schizoaffective DO/Depression with decompensation /Catatonia Treatment per psychiatric team Currently receiving Ketamine treatments. 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 Patient with poor venous access. Consider PICC line or port. Fungal rash to left buttock Triamcinolone cream BID until clear. Urinary retention/BPH Continue Flomax Monitor for retention. Recent UA negative. Plan Assessment and Plan 59 year-old male with hx of schizoaffective disorder, hypertension, urinary retention, type 2 diabetes, depression recently discharged from on 10/08/2024 after prolonged admission due to treatment resistant catatonia. He had responded to Ketamine treatment, failed ECT with further complications including aspiration. He presented from [facility] with a change in mental status, he was found wandering in the streets soaked in urine. Depression with decompensation of schizophrenia, catatonia. Status post ketamine treatments, history of ECT with aspiration event Treatment per psych team. Urinary retention/BPH Continue Flomax 0.8mg, Finesteride Dove catheter in place. Follow up urology outpatient Dysphagia Tolerating diet, HOB up. OOB for meals. Mr. 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 He had responded to ketamine treatment, failed ECT with further complications including aspiration. He presents with catatonia again including mutism, waxy flexibility. He had one ketamine treatment since he was discharged from the hospital and only partial dose. He was recommended to do weekly ketamine treatments to prevent catatonia. reports he was taking medications as prescribed. Pending clozapine/norclozapine levels. PLAN 1. Admit to , Sect 12b, 1:1 unsteady gait 2. will check KUB for constipation as pt very poor historian but reports no BM in several days. Will also check bladder scan post void to rule out overflow incontinence due to urinary retention since reports increase incontinence in past few days. Note that he was straight cath while in the ED. 3. restart medications- abilify, sertraline, clozapine, low dose depakote 4. obtain collateral information 5. aftercare panning. 10/29/24 Pt to restart ketamine hcp in effect on 12 b at present 10/30/2024 Patient now on CV by healthcare proxy. Ketamine protocol ordered for the morning the that was previously quite helpful in treating patients catatonia has not responded previously well to lorazepam had only intermittent response to ECT here proxy does not wish ECT treatment and did respond to ketamine Medications continue that previously had been helpful on recent discharge 10/31/2024 Patient given 1st ketamine treatment had respondent previously to a series no change this point. Encourage food and fluids face anxious in appearance mostly mute minimally responsive catatonic symptoms continue. Continue Abilify mirtazapine sertraline Clozaril 150 mg Continue ketamine trial 11/01/2024 Patient remains generally unchanged. Continue clozapine sertraline mirtazapine Abilify 5 mg pramipexole 0.5 t.i.d. part of previous catatonia algorithm. Ketamine scheduled when possible had previously been quite helpful was previously on a 2 week 2 times a week schedule Urinary retention positive urine culture case discussed hospitalist service. Hospitalist consult called. Plan for antibiotics and Dove catheter and then trial without the catheter as possible check electrolytes in the morning may benefit from fluid replacement. Maintain head of the bed elevated supportive nursing care plan to reduce possible congestion 11/02: Continue current regimen and plans 11/03: Continue current plans and regimen Reason for continued inpatient stay 11/05/24 Pt with some imp more alert tolerating ketamine tx needs assist eating walking flat catatonic cont pts catatonia protocal 11/06/2024 Continue plan of care ketamine 11/07/2024 some mild improvement noted continue Monday ketamine treatment 11/07/2024 Patient continues to show improvement from initial catatonia more verbal try to evaluate mood and psychosis. Need clarity why patient was unable to complete outpatient ketamine 11/08/2024 Gradual improvement continues patient able to ambulate independently Dove catheter continues continue ketamine clozapine mirtazapine Abilify 11/09 no change in presentation; continue treatment plan 11/10 Been doing much better today, walking around, talking. He agrees and says he is doing all right.' patient remembers that it was hard for him to talk yesterday but unable to say why. 11/11/2024 Patient has had 2 days of marked improvement unable to explain behavior prior to admission refusing intravenous ketamine what exactly happened home and why he has negative connotations unable to give a clear history regarding this appears to be responding well to continue ketamine increase Depakote 11/12/2024 Will try discontinue Dove catheter and voiding trial. Monitor for cycling change patient appears to be shifting out of catatonia much orozco range of affect future oriented. Ketamine held today scheduled for 821. Continue Abilify clozapine Depakote try and determine lowest schedule for ketamine that maintains patient very little to go by to guide this decision 10/2024 Continue plan of care monitor for martha or confusion ketamine in the morning monitor response to discontinuing Dove 11/14/2024 Patient's some increased anxiety status post ketamine denies psychotic symptoms offered option of lorazepam PRN Will need to evaluate ketamine dosing 11/15/2024 Increase Abilify to 10 mg lower sertraline to 50 mg monitor response question patient overstimulated by antidepressants check Depakote level check ammonia 11/16/24 Continue plan of care check level 11/17/24 Continue to monitor 11/18/2024 Ketamine on hold gradually increase clozapine and Depakote check level 11/19/2024 Patient seems improved orozco affect calmer and more cooperative less irritable. Question adverse reaction to higher dose of sertraline now decreased responding to increased Depakote. Ketamine infusion scheduled for 11/2111/20/2024 Patient continues on prior algorithm for catatonia which includes Abilify clozapine mirtazapine clozapine. He is also on Depakote Depakote level 28.6 ammonia level unremarkable could decrease Depakote monitor response to ketamine see if we can try and discontinue currently 1 time a week monitor for any adverse effect 11/21/24 dep level low can increase ammonia ok can try and see if ketamine could be held 11/22/24 will try amantadine for eps monitor response 11/27/2024 Ketamine in the morning will try half dosing continue amantadine for EPS continue clozapine and Depakote 11/28/2024 Continue plan of care catatonia markedly improved coordinate discharge 11/29/24 Pt improved fx less lable cont cloizapine amantadine new for eps 11/30 Checked vitals and grossly WNL Nursing reports that patient was irritable today. On approach patient did not want to talk and said I am all set.. Room smelled of urine 12/01 Is quite irritable; today patient got kicked out of OT group which is a 1st. On approach patient said that he is all right and acknowledges that he got angry but does not want to talk about it -ordered p.r.n. Ativan which is helped in the past following ketamine -ordered UA 12/02/2024 Ketamine ordered for the morning patient again it or irritable reactive aggressive unwilling to process emotions and thinking amantadine discontinued may be contributing to irritability agitation was prescribed for EPS. Patient not stable for discharge needs frequent cuing for food fluids internally preoccupied again isolated 12 03 24 Patient seems somewhat improved with ketamine treatment at full dosing this morning he is able to ambulate sit in the kitchen needs assist with showering psychomotor retarded but improved from yesterday limited verbally flat. Amantadine discontinued limited options for EPS given patient history of urinary retention avoiding Cogentin amantadine may have caused irritability check Depakote and Clozaril level working to discharge to a [facility] when possible 12/04/24 Patient withdrawn and blunted ketamine against scheduled for tomorrow morning has responded previously unclear why he relapsed again. Increase clozapine will need PICC line or port 12/05/2024 Patient seems improved with to intravenous ketamine treatments this week less deep in the catatonia scale blunted with poverty of speech in minimal recheck activity but definitely significant improvement from days ago some increase range of emotion and less delay in speech Clozapine increased Coordination with [facility] 12/06/2024 Patient agreeable placement of PICC line remains with some catatonic symptoms but generally improving needs help and cuing for basic functioning not overly depressed continue clozapine Abilify Depakote part of catatonia protocol scheduled ketamine for next week 12/07, 12/08: no change today 12/09/2024 Continue catatonia protocol ketamine for the morning PICC line placed increase mirtazapine consider restart Namenda clozapine has been increased Informed Consent: does not understand Reason for continued inpatient stay Substantial Risk for: inability to function, rapid decompensation and med/psych decompensation Time Spent With Patient Time: Total time managing care of this patient today _30___ minutes.
[2024-12-10] VITALS (11 sets, daily range): BP systolic 109–139; BP diastolic 59–72; PULSE 75–85; RESP 18; TEMP 36.1–37.2; O2SAT 95–99
[2024-12-10] MEDS: Ferrous Sulfate 324 MG TABLET.DR PO (08:00)
[2024-12-10] MEDS: Heparin Sodium,Porcine Flush 50 UNITS, 0.9 % Sodium Chloride Flush 5 ML IVFLUSH ×2 (15:04→19:36)
[2024-12-10] MEDS: Milk of Magnesia 30 ML ORAL.SUSP 5 ML PO (19:38)
[2024-12-10] MEDS: Divalproex Sodium Sprinkles 125 MG CAP.DR.SPR 1000 MG PO (19:38)
[2024-12-10] MEDS: Triamcinolone Acet 0.1 % Cream 15 GM TUBE 1 APPL TOPICAL (19:49)
--- NOTE | 2024-12-10 23:02 | HO.PSYCHPN ---
Subjective Subjective Date of Service: 12/10/24 Reason For Visit: Catatonia Subjective Notes: Conditional Voluntary Healthcare Proxy: Yes Interim History: Patient remains catatonic did receive intravenous ketamine treatment this morning. No clear improvement to this point he is more awake and out of bed but continues to be psychomotor retarded Mental Status Exam Mental Status Exam Narrative: Patient casually dressed mood described as okay flat affect constricted ambulating independently poverty of content denies active SI or HI poverty of content no hallucinations or delusional material noted agreeable with care Limited insight impulse control seems adequate at this time Significant psychomotor retardation nods yes when asked about depression Diagnostics Vital Signs (24Hr): Vital Signs - 24 hr 12/10/24 08:10 12/10/24 09:10 12/10/24 09:25 Temperature 97 F 97 F Pulse Rate 82 76 75 Respiratory Rate 18 18 Blood Pressure 139/71 127/67 126/65 Pulse Oximetry 99 97 96 Oxygen Delivery Method Room Air Room Air Room Air 12/10/24 09:40 12/10/24 09:55 12/10/24 10:10 Temperature 97.3 F Pulse Rate 78 80 80 Respiratory Rate 18 18 18 Blood Pressure 119/70 125/64 130/69 Pulse Oximetry 96 96 96 Oxygen Delivery Method Room Air Room Air Room Air 12/10/24 10:25 12/10/24 10:40 12/10/24 10:55 Temperature Pulse Rate 81 83 80 Respiratory Rate 18 18 18 Blood Pressure 121/70 109/72 127/69 Pulse Oximetry 97 96 96 Oxygen Delivery Method Room Air Room Air Room Air 12/10/24 11:10 12/10/24 20:00 Temperature 98.9 F 98.1 F Pulse Rate 78 85 Respiratory Rate 18 18 Blood Pressure 117/67 118/59 L Pulse Oximetry 95 96 Oxygen Delivery Method Room Air Room Air BMI result Body Mass Index 28.9 Labs 11/19/24 10:54 11/19/24 10:54 Imaging Radiology Impressions: ITS Impressions KUB X-Ray 10/28/24 16:45 IMPRESSION: Again seen is a large amount of stool throughout the colon and rectum. Electronically signed by: Jose J Gonzalez MD 10/28/2024 05:20 PM EDT Medications Medications Current Medications Acetaminophen (Acetaminophen 325 Mg Tablet) 650 mg PO Q6H PRN PRN Reason: Headache/Pain, Scale 1-10 Last Admin: 11/01/24 20:01 Dose: 650 mg Al Hydroxide/Mg Hydroxide (Magnesium Hydrox/Alum Hydrox 30 Ml Oral.Susp) 30 ml PO Q6H PRN PRN Reason: Heartburn/Nausea Aripiprazole (Aripiprazole 10 Mg Tablet) 10 mg PO DAILY@1730 [facility] [place] Last Admin: 12/10/24 17:20 Dose: 10 mg Ascorbic Acid (Ascorbic Acid 500 Mg Tablet) 500 mg PO DAILY [facility] [place] Last Admin: 12/10/24 08:00 Dose: 500 mg Clozapine 200 mg/ Clozapine 50 (mg) 250 mg PO DAILY@1999 [facility] [place] Last Admin: 12/10/24 19:41 Dose: 250 mg Heparin Sodium (Porcine) 50 (units/ Sodium Chloride 5 ml) 0 units IVFLUSH TID [facility] [place] Last Admin: 12/10/24 19:36 Dose: 50 unit Divalproex Sodium (Divalproex Sodium Sprinkles 125 Mg Cap.Spr) 1,000 mg PO DAILY@1999 [facility] [place] Last Admin: 12/10/24 19:38 Dose: 1,000 mg Ferrous Sulfate (Ferrous Sulfate 324 Mg Tablet.Dr) 324 mg PO DAILY [facility] [place] Last Admin: 12/10/24 08:00 Dose: 324 mg Finasteride (Finasteride 5 Mg Tablet) 5 mg PO DAILY [facility] [place] Last Admin: 12/10/24 08:00 Dose: 5 mg Ketamine HCl 45 mg/ Sodium (Chloride) 4.5 mls @ 4.5 mls/hr IV ONCE ONE Stop: 12/12/24 07:31 Magnesium Hydroxide (Milk Of Magnesia 30 Ml Oral.Susp) 30 ml PO DAILY PRN PRN Reason: Constipation Magnesium Hydroxide (Milk Of Magnesia 30 Ml Oral.Susp) 5 ml PO BEDTIME [facility] [place] Last Admin: 12/10/24 19:38 Dose: 5 ml Mirtazapine (Mirtazapine 7.5 Mg Tablet) 22.5 mg PO BEDTIME [facility] [place] Last Admin: 12/10/24 19:40 Dose: 22.5 mg Olanzapine (Olanzapine Odt 10 Mg Tab.Rapdis) 5 mg TRANSLINGU BID PRN PRN Reason: agitation Last Admin: 12/01/24 08:14 Dose: 5 mg Polyethylene Glycol (Polyethylene Glycol 3350 17 Gm Powd.Pack) 17 gm PO DAILY [facility] [place] Last Admin: 12/10/24 08:00 Dose: 17 gm Pramipexole Dihydrochloride (Pramipexole Di-Hcl 0.25 Mg Tablet) 0.5 mg PO TID [facility] [place] Last Admin: 12/10/24 19:39 Dose: 0.5 mg Senna/Docusate Sodium (Sennosides/Docusate Sodium Tablet) 1 tab PO BID PRN PRN Reason: no BM for more than 3days Sertraline HCl (Sertraline Hcl 100 Mg Tablet) 100 mg PO DAILY [facility] [place] Tamsulosin HCl (Tamsulosin Hcl 0.4 Mg Capsule) 0.8 mg PO BEDTIME [facility] Last Admin: 12/10/24 19:39 Dose: 0.8 mg Thiamine HCl (Thiamine Hcl 100 Mg Tablet) 100 mg PO DAILY [facility] [place] Last Admin: 12/10/24 08:00 Dose: 100 mg Trazodone HCl (Trazodone Hcl 50 Mg Tablet) 50 mg PO BEDTIME PRN PRN Reason: Insomnia Last Admin: 12/10/24 19:40 Dose: 50 mg Triamcinolone Acetonide (Triamcinolone Acet 0.1 % Cream 15 Gm Tube) 1 appl TOPICAL BID [facility] [place]; Protocol Last Admin: 12/10/24 19:49 Dose: 1 appl Allergies Allergies Allergy/AdvReac Type Severity Reaction Status Date / Time No Known Allergies (NKA) Allergy Unknown NONE Verified 10/27/24 19:26 Assessment & Plan Assessment & Plan (1) Schizoaffective disorder: Status: Acute Code(s): F25.9 - Schizoaffective disorder, unspecified (2) Catatonia: Status: Acute Code(s): F06.1 - Catatonic disorder due to known physiological condition (3) Essential hypertension: Status: Acute Code(s): I10 - Essential (primary) hypertension (4) Urinary retention with incomplete bladder emptying: Status: Acute Code(s): R33.9 - Retention of urine, unspecified Plan Schizoaffective DO/Depression with decompensation /Catatonia Treatment per psychiatric team Currently receiving Ketamine treatments. 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 Patient with poor venous access. Consider PICC line or port. Fungal rash to left buttock Triamcinolone cream BID until clear. Urinary retention/BPH Continue Flomax Monitor for retention. Recent UA negative. Plan Assessment and Plan 59 year-old male with hx of schizoaffective disorder, hypertension, urinary retention, type 2 diabetes, depression recently discharged from [facility] on 10/08/2024 after prolonged admission due to treatment resistant catatonia. He had responded to Ketamine treatment, failed ECT with further complications including aspiration. He presented from retirement with a change in mental status, he was found wandering in the streets soaked in urine. Depression with decompensation of schizophrenia, catatonia. Status post ketamine treatments, history of ECT with aspiration event Treatment per psych team. Urinary retention/BPH Continue Flomax 0.8mg, Finesteride Dove catheter in place. Follow up urology outpatient Dysphagia Tolerating diet, HOB up. OOB for meals. Mr. Tenorio is a 59 year-old male with hx of schizoaffective disorder recently discharged from [facility] on 10/08/2024 after prologued admission due to treatment resistant catatonia. He had responded to ketamine treatment, failed ECT with further complications including aspiration. He presents with catatonia again including mutism, waxy flexibility. He had one ketamine treatment since he was discharged from the hospital and only partial dose. He was recommended to do weekly ketamine treatments to prevent catatonia. reports he was taking medications as prescribed. Pending clozapine/norclozapine levels. PLAN 1. Admit to S[facility], Sect 12b, 1:1 unsteady gait 2. will check KUB for constipation as pt very poor historian but reports no BM in several days. Will also check bladder scan post void to rule out overflow incontinence due to urinary retention since reports increase incontinence in past few days. Note that he was straight cath while in the ED. 3. restart medications- abilify, sertraline, clozapine, low dose depakote 4. obtain collateral information 5. aftercare panning. 10/29/24 Pt to restart ketamine hcp in effect on 12 b at present 10/30/2024 Patient now on CV by healthcare proxy. Ketamine protocol ordered for the morning the that was previously quite helpful in treating patients catatonia has not responded previously well to lorazepam had only intermittent response to ECT here proxy does not wish ECT treatment and did respond to ketamine Medications continue that previously had been helpful on recent discharge 10/31/2024 Patient given 1st ketamine treatment had respondent previously to a series no change this point. Encourage food and fluids face anxious in appearance mostly mute minimally responsive catatonic symptoms continue. Continue Abilify mirtazapine sertraline Clozaril 150 mg Continue ketamine trial 11/01/2024 Patient remains generally unchanged. Continue clozapine sertraline mirtazapine Abilify 5 mg pramipexole 0.5 t.i.d. part of previous catatonia algorithm. Ketamine scheduled when possible had previously been quite helpful was previously on a 2 week 2 times a week schedule Urinary retention positive urine culture case discussed hospitalist service. Hospitalist consult called. Plan for antibiotics and Dove catheter and then trial without the catheter as possible check electrolytes in the morning may benefit from fluid replacement. Maintain head of the bed elevated supportive nursing care plan to reduce possible congestion 11/02: Continue current regimen and plans 11/03: Continue current plans and regimen Reason for continued inpatient stay 11/05/24 Pt with some imp more alert tolerating ketamine tx needs assist eating walking flat catatonic cont pts catatonia protocal 11/06/2024 Continue plan of care ketamine 11/07/2024 some mild improvement noted continue Monday ketamine treatment 11/07/2024 Patient continues to show improvement from initial catatonia more verbal try to evaluate mood and psychosis. Need clarity why patient was unable to complete outpatient ketamine 11/08/2024 Gradual improvement continues patient able to ambulate independently Dove catheter continues continue ketamine clozapine mirtazapine Abilify 11/09 no change in presentation; continue treatment plan 11/10 Been doing much better today, walking around, talking. He agrees and says he is doing all right.' patient remembers that it was hard for him to talk yesterday but unable to say why. 11/11/2024 Patient has had 2 days of marked improvement unable to explain behavior prior to admission refusing intravenous ketamine what exactly happened home and why he has negative connotations unable to give a clear history regarding this appears to be responding well to continue ketamine increase Depakote 11/12/2024 Will try discontinue Dove catheter and voiding trial. Monitor for cycling change patient appears to be shifting out of catatonia much orozco range of affect future oriented. Ketamine held today scheduled for 821. Continue Abilify clozapine Depakote try and determine lowest schedule for ketamine that maintains patient very little to go by to guide this decision 10/2024 Continue plan of care monitor for martha or confusion ketamine in the morning monitor response to discontinuing Dove 11/14/2024 Patient's some increased anxiety status post ketamine denies psychotic symptoms offered option of lorazepam PRN Will need to evaluate ketamine dosing 11/15/2024 Increase Abilify to 10 mg lower sertraline to 50 mg monitor response question patient overstimulated by antidepressants check Depakote level check ammonia 11/16/24 Continue plan of care check level 11/17/24 Continue to monitor 11/18/2024 Ketamine on hold gradually increase clozapine and Depakote check level 11/19/2024 Patient seems improved orozco affect calmer and more cooperative less irritable. Question adverse reaction to higher dose of sertraline now decreased responding to increased Depakote. Ketamine infusion scheduled for 11/2111/20/2024 Patient continues on prior algorithm for catatonia which includes Abilify clozapine mirtazapine clozapine. He is also on Depakote Depakote level 28.6 ammonia level unremarkable could decrease Depakote monitor response to ketamine see if we can try and discontinue currently 1 time a week monitor for any adverse effect 11/21/24 dep level low can increase ammonia ok can try and see if ketamine could be held 11/22/24 will try amantadine for eps monitor response 11/27/2024 Ketamine in the morning will try half dosing continue amantadine for EPS continue clozapine and Depakote 11/28/2024 Continue plan of care catatonia markedly improved coordinate discharge 11/29/24 Pt improved fx less lable cont cloizapine amantadine new for eps 11/30 Checked vitals and grossly WNL Nursing reports that patient was irritable today. On approach patient did not want to talk and said I am all set.. Room smelled of urine 12/01 Is quite irritable; today patient got kicked out of OT group which is a 1st. On approach patient said that he is all right and acknowledges that he got angry but does not want to talk about it -ordered p.r.n. Ativan which is helped in the past following ketamine -ordered UA 12/02/2024 Ketamine ordered for the morning patient again it or irritable reactive aggressive unwilling to process emotions and thinking amantadine discontinued may be contributing to irritability agitation was prescribed for EPS. Patient not stable for discharge needs frequent cuing for food fluids internally preoccupied again isolated 12 03 24 Patient seems somewhat improved with ketamine treatment at full dosing this morning he is able to ambulate sit in the kitchen needs assist with showering psychomotor retarded but improved from yesterday limited verbally flat. Amantadine discontinued limited options for EPS given patient history of urinary retention avoiding Cogentin amantadine may have caused irritability check Depakote and Clozaril level working to discharge to a [facility] retirement when possible 12/04/24 Patient withdrawn and blunted ketamine against scheduled for tomorrow morning has responded previously unclear why he relapsed again. Increase clozapine will need PICC line or port 12/05/2024 Patient seems improved with to intravenous ketamine treatments this week less deep in the catatonia scale blunted with poverty of speech in minimal recheck activity but definitely significant improvement from days ago some increase range of emotion and less delay in speech Clozapine increased Coordination with [facility] 12/06/2024 Patient agreeable placement of PICC line remains with some catatonic symptoms but generally improving needs help and cuing for basic functioning not overly depressed continue clozapine Jillian Feltonakote part of catatonia protocol scheduled ketamine for next week 12/07, 12/08: no change today 12/09/2024 Continue catatonia protocol ketamine for the morning PICC line placed increase mirtazapine consider restart Namenda clozapine has been increased 12/10/2024 Will continue 2 times a week ketamine protocol for catatonia increase sertraline although lorazepam failed previously consider retrial monitor mood Informed Consent: further education needed Reason for continued inpatient stay Substantial Risk for: inability to function, rapid decompensation and med/psych decompensation Time Spent With Patient Time: Total time managing care of this patient today __25__ minutes.
[2024-12-11 07:48] VITALS: BP 140/67; PULSE 83; RESP 18; TEMP 36; O2SAT 96
[2024-12-11] MEDS: Heparin Sodium,Porcine Flush 50 UNITS, 0.9 % Sodium Chloride Flush 5 ML IVFLUSH ×3 (08:32→20:12)
[2024-12-11] MEDS: Ferrous Sulfate 324 MG TABLET.DR PO (08:34)
[2024-12-11 20:00] VITALS: BP 133/60; PULSE 90; RESP 16; TEMP 36.1; O2SAT 97
[2024-12-11] MEDS: Divalproex Sodium Sprinkles 125 MG CAP.DR.SPR 1000 MG PO (20:10)
[2024-12-11] MEDS: Triamcinolone Acet 0.1 % Cream 15 GM TUBE 1 APPL TOPICAL (20:15)
[2024-12-11] MEDS: Milk of Magnesia 30 ML ORAL.SUSP 5 ML PO (20:48)
--- NOTE | 2024-12-11 23:10 | P.PNPSI_ITS ---
Subjective Subjective Date of Service: 12/11/24 Reason For Visit: Catatonia Subjective Notes: Conditional Voluntary Healthcare Proxy: Yes Interim History: Patient's case reviewed in treatment planning chart reviewed patient seen. The patient is withdrawn limited in speech needs encouragement for ADLs functioning. Medication Compliance: Yes Attending Groups: No Mental Status Exam Mental Status Exam Narrative: Patient casually dressed mood depressed flat affect constricted some irritability ambulating independently poverty of content denies active SI or HI poverty of content no hallucinations or delusional material noted agreeable with care Limited insight impulse control seems adequate at this time Diagnostics Vital Signs (24Hr): Vital Signs - 24 hr 12/11/24 07:48 12/11/24 20:00 Temperature 96.8 F 97 F Pulse Rate 83 90 Respiratory Rate 18 16 Blood Pressure 140/67 H 133/60 Pulse Oximetry 96 97 Oxygen Delivery Method Room Air BMI result Body Mass Index 28.9 Labs 11/19/24 10:54 11/19/24 10:54 Imaging Radiology Impressions: ITS Impressions KUB X-Ray 10/28/24 16:45 IMPRESSION: Again seen is a large amount of stool throughout the colon and rectum. Electronically signed by: Jose J Gonzalez MD 10/28/2024 05:20 PM EDT RP Medications Medications Current Medications Acetaminophen (Acetaminophen 325 Mg Tablet) 650 mg PO Q6H PRN PRN Reason: Headache/Pain, Scale 1-10 Last Admin: 11/01/24 20:01 Dose: 650 mg Al Hydroxide/Mg Hydroxide (Magnesium Hydrox/Alum Hydrox 30 Ml Oral.Susp) 30 ml PO Q6H PRN PRN Reason: Heartburn/Nausea Aripiprazole (Aripiprazole 10 Mg Tablet) 10 mg PO DAILY@1730 [facility] Last Admin: 12/11/24 16:42 Dose: 10 mg Ascorbic Acid (Ascorbic Acid 500 Mg Tablet) 500 mg PO DAILY [facility] Last Admin: 12/11/24 08:33 Dose: 500 mg Clozapine 200 mg/ Clozapine 50 (mg) 250 mg PO DAILY@1999 [facility] Last Admin: 12/11/24 20:10 Dose: 250 mg Heparin Sodium (Porcine) 50 (units/ Sodium Chloride 5 ml) 0 units IVFLUSH TID [facility] Last Admin: 12/11/24 20:12 Dose: 50 unit Divalproex Sodium (Divalproex Sodium Sprinkles 125 Mg Cap.) 1,000 mg PO DAILY@1999 [facility] Last Admin: 12/11/24 20:10 Dose: 1,000 mg Ferrous Sulfate (Ferrous Sulfate 324 Mg Tablet.Dr) 324 mg PO DAILY [facility] Last Admin: 12/11/24 08:34 Dose: 324 mg Finasteride (Finasteride 5 Mg Tablet) 5 mg PO DAILY [facility] Last Admin: 12/11/24 08:33 Dose: 5 mg Ketamine HCl 45 mg/ Sodium (Chloride) 4.5 mls @ 4.5 mls/hr IV ONCE ONE Stop: 12/12/24 07:31 Magnesium Hydroxide (Milk Of Magnesia 30 Ml Oral.Susp) 30 ml PO DAILY PRN PRN Reason: Constipation Magnesium Hydroxide (Milk Of Magnesia 30 Ml Oral.Susp) 5 ml PO BEDTIME [facility] Last Admin: 12/11/24 20:48 Dose: 5 ml Mirtazapine (Mirtazapine 7.5 Mg Tablet) 22.5 mg PO BEDTIME [facility] Last Admin: 12/11/24 20:14 Dose: 22.5 mg Olanzapine (Olanzapine Odt 10 Mg Tab.Rapdis) 5 mg TRANSLINGU BID PRN PRN Reason: agitation Last Admin: 12/01/24 08:14 Dose: 5 mg Polyethylene Glycol (Polyethylene Glycol 3350 17 Gm Powd.Pack) 17 gm PO DAILY [facility] Last Admin: 12/11/24 08:31 Dose: 17 gm Pramipexole Dihydrochloride (Pramipexole Di-Hcl 0.25 Mg Tablet) 0.5 mg PO TID [facility] Last Admin: 12/11/24 20:13 Dose: 0.5 mg Senna/Docusate Sodium (Sennosides/Docusate Sodium Tablet) 1 tab PO BID PRN PRN Reason: no BM for more than 3days Sertraline HCl (Sertraline Hcl 100 Mg Tablet) 100 mg PO DAILY [facility] Last Admin: 12/11/24 08:33 Dose: 100 mg Tamsulosin HCl (Tamsulosin Hcl 0.4 Mg Capsule) 0.8 mg PO BEDTIME [facility] Last Admin: 12/11/24 20:13 Dose: 0.8 mg Thiamine HCl (Thiamine Hcl 100 Mg Tablet) 100 mg PO DAILY [facility] Last Admin: 12/11/24 08:33 Dose: 100 mg Trazodone HCl (Trazodone Hcl 50 Mg Tablet) 50 mg PO BEDTIME PRN PRN Reason: Insomnia Last Admin: 12/10/24 19:40 Dose: 50 mg Triamcinolone Acetonide (Triamcinolone Acet 0.1 % Cream 15 Gm Tube) 1 appl TOPICAL BID KRISTIN; Protocol Last Admin: 12/11/24 20:15 Dose: 1 appl Allergies Allergies Allergy/AdvReac Type Severity Reaction Status Date / Time No Known Allergies (NKA) Allergy Unknown NONE Verified 10/27/24 19:26 Assessment & Plan Assessment & Plan (1) Schizoaffective disorder: Status: Acute Code(s): F25.9 - Schizoaffective disorder, unspecified (2) Catatonia: Status: Acute Code(s): F06.1 - Catatonic disorder due to known physiological condition (3) Essential hypertension: Status: Acute Code(s): I10 - Essential (primary) hypertension (4) Urinary retention with incomplete bladder emptying: Status: Acute Code(s): R33.9 - Retention of urine, unspecified Plan Schizoaffective DO/Depression with decompensation /Catatonia Treatment per psychiatric team Currently receiving Ketamine treatments. Plan is most likely residential ketamine treatments Will need alternative IV access. Patient with poor venous access. Consider PICC line or port. Fungal rash to left buttock Triamcinolone cream BID until clear. Urinary retention/BPH Continue Flomax Monitor for retention. Recent UA negative. Plan Assessment and Plan 59 year-old male with hx of schizoaffective disorder, hypertension, urinary retention, type 2 diabetes, depression recently discharged from on 10/08/2024 after prolonged admission due to treatment resistant catatonia. He had responded to Ketamine treatment, failed ECT with further complications including aspiration. He presented [facility] [facility] with a change in mental status, he was found wandering in the streets soaked in urine. Depression with decompensation of schizophrenia, catatonia. Status post ketamine treatments, history of ECT with aspiration event Treatment per psych team. Urinary retention/BPH Continue Flomax 0.8mg, Finesteride Dove catheter in place. Follow up urology outpatient Dysphagia Tolerating diet, HOB up. OOB for meals. Mr. 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 He had responded to ketamine treatment, failed ECT with further complications including aspiration. He presents with catatonia again including mutism, waxy flexibility. He had one ketamine treatment since he was discharged from the hospital and only partial dose. He was recommended to do weekly ketamine treatments to prevent catatonia. reports he was taking medications as prescribed. Pending clozapine/norclozapine levels. PLAN 1. Admit to S1, Sect 12b, 1:1 unsteady gait 2. will check KUB for constipation as pt very poor historian but reports no BM in several days. Will also check bladder scan post void to rule out overflow incontinence due to urinary retention since reports increase incontinence in past few days. Note that he was straight cath while in the ED. 3. restart medications- abilify, sertraline, clozapine, low dose depakote 4. obtain collateral information 5. aftercare panning. 10/29/24 Pt to restart ketamine hcp in effect on 12 b at present 10/30/2024 Patient now on CV by healthcare proxy. Ketamine protocol ordered for the morning the that was previously quite helpful in treating patients catatonia has not responded previously well to lorazepam had only intermittent response to ECT here proxy does not wish ECT treatment and did respond to ketamine Medications continue that previously had been helpful on recent discharge 10/31/2024 Patient given 1st ketamine treatment had respondent previously to a series no change this point. Encourage food and fluids face anxious in appearance mostly mute minimally responsive catatonic symptoms continue. Continue Abilify mirtazapine sertraline Clozaril 150 mg Continue ketamine trial 11/01/2024 Patient remains generally unchanged. Continue clozapine sertraline mirtazapine Abilify 5 mg pramipexole 0.5 t.i.d. part of previous catatonia algorithm. Ketamine scheduled when possible had previously been quite helpful was previously on a 2 week 2 times a week schedule Urinary retention positive urine culture case discussed hospitalist service. Hospitalist consult called. Plan for antibiotics and Dove catheter and then trial without the catheter as possible check electrolytes in the morning may benefit from fluid replacement. Maintain head of the bed elevated supportive nursing care plan to reduce possible congestion 11/02: Continue current regimen and plans 11/03: Continue current plans and regimen Reason for continued inpatient stay 11/05/24 Pt with some imp more alert tolerating ketamine tx needs assist eating walking flat catatonic cont pts catatonia protocal 11/06/2024 Continue plan of care ketamine 11/07/2024 some mild improvement noted continue Monday ketamine treatment 11/07/2024 Patient continues to show improvement from initial catatonia more verbal try to evaluate mood and psychosis. Need clarity why patient was unable to complete outpatient ketamine 11/08/2024 Gradual improvement continues patient able to ambulate independently Dove catheter continues continue ketamine clozapine mirtazapine Abilify 11/09 no change in presentation; continue treatment plan 11/10 Been doing much better today, walking around, talking. He agrees and says he is doing all right.' patient remembers that it was hard for him to talk yesterday but unable to say why. 11/11/2024 Patient has had 2 days of marked improvement unable to explain behavior prior to admission refusing intravenous ketamine what exactly happened home and why he has negative connotations unable to give a clear history regarding this appears to be responding well to continue ketamine increase Depakote 11/12/2024 Will try discontinue Dove catheter and voiding trial. Monitor for cycling change patient appears to be shifting out of catatonia much orozco range of affect future oriented. Ketamine held today scheduled for 821. Continue Abilify clozapine Depakote try and determine lowest schedule for ketamine that maintains patient very little to go by to guide this decision 10/2024 Continue plan of care monitor for martha or confusion ketamine in the morning monitor response to discontinuing Dove 11/14/2024 Patient's some increased anxiety status post ketamine denies psychotic symptoms offered option of lorazepam PRN Will need to evaluate ketamine dosing 11/15/2024 Increase Abilify to 10 mg lower sertraline to 50 mg monitor response question patient overstimulated by antidepressants check Depakote level check ammonia 11/16/24 Continue plan of care check level 11/17/24 Continue to monitor 11/18/2024 Ketamine on hold gradually increase clozapine and Depakote check level 11/19/2024 Patient seems improved orozco affect calmer and more cooperative less irritable. Question adverse reaction to higher dose of sertraline now decreased responding to increased Depakote. Ketamine infusion scheduled for 11/2111/20/2024 Patient continues on prior algorithm for catatonia which includes Abilify clozapine mirtazapine clozapine. He is also on Depakote Depakote level 28.6 ammonia level unremarkable could decrease Depakote monitor response to ketamine see if we can try and discontinue currently 1 time a week monitor for any adverse effect 11/21/24 dep level low can increase ammonia ok can try and see if ketamine could be held 11/22/24 will try amantadine for eps monitor response 11/27/2024 Ketamine in the morning will try half dosing continue amantadine for EPS continue clozapine and Depakote 11/28/2024 Continue plan of care catatonia markedly improved coordinate discharge 11/29/24 Pt improved fx less lable cont cloizapine amantadine new for eps 11/30 Checked vitals and grossly WNL Nursing reports that patient was irritable today. On approach patient did not want to talk and said I am all set.. Room smelled of urine 12/01 Is quite irritable; today patient got kicked out of OT group which is a 1st. On approach patient said that he is all right and acknowledges that he got angry but does not want to talk about it -ordered p.r.n. Ativan which is helped in the past following ketamine -ordered UA 12/02/2024 Ketamine ordered for the morning patient again it or irritable reactive aggressive unwilling to process emotions and thinking amantadine discontinued may be contributing to irritability agitation was prescribed for EPS. Patient not stable for discharge needs frequent cuing for food fluids internally preoccupied again isolated 12 03 24 Patient seems somewhat improved with ketamine treatment at full dosing this morning he is able to ambulate sit in the kitchen needs assist with showering psychomotor retarded but improved from yesterday limited verbally flat. Amantadine discontinued limited options for EPS given patient history of urinary retention avoiding Cogentin amantadine may have caused irritability check Depakote and Clozaril level working to discharge to a [facility] [place] [facility] when possible 12/04/24 Patient withdrawn and blunted ketamine against scheduled for tomorrow morning has responded previously unclear why he relapsed again. Increase clozapine will need PICC line or port 12/05/2024 Patient seems improved with to intravenous ketamine treatments this week less deep in the catatonia scale blunted with poverty of speech in minimal recheck activity but definitely significant improvement from days ago some increase range of emotion and less delay in speech Clozapine increased Coordination with [facility]D 12/06/2024 Patient agreeable placement of PICC line remains with some catatonic symptoms but generally improving needs help and cuing for basic functioning not overly depressed continue clozapine Jillian Feltonakote part of catatonia protocol scheduled ketamine for next week 12/07, 12/08: no change today 12/09/2024 Continue catatonia protocol ketamine for the morning PICC line placed increase mirtazapine consider restart Namenda clozapine has been increased 12/10/2024 Will continue 2 times a week ketamine protocol for catatonia increase sertraline although lorazepam failed previously consider retrial monitor mood 12/11/2024 Ketamine scheduled for 12/12/2024 sertraline increase increase clozapine gradually patient has responded to 2 times a week ketamine previously with a much orozco range of affect and much improvement in mood Reason for continued inpatient stay Substantial Risk for: inability to function, rapid decompensation and med/psych decompensation Time Spent With Patient Time: Total time managing care of this patient today ____ minutes.
[2024-12-12] VITALS (11 sets, daily range): BP systolic 123–140; BP diastolic 62–81; PULSE 71–89; RESP 16–18; TEMP 36.1–36.9; O2SAT 95–99; BMI 29.0
[2024-12-12] MEDS: Ferrous Sulfate 324 MG TABLET.DR PO (07:42)
--- NOTE | 2024-12-12 09:53 | PC.NURSE ---
PICC line in right arm, site unremarkable. VS: 97.1, 73, 125/62, O2sa7 96% on RA. Denies pain/discomfort. No c/o offered. Out to Ketamine Tx after 8AM.
[2024-12-12] MEDS: Heparin Sodium,Porcine Flush 50 UNITS, 0.9 % Sodium Chloride Flush 5 ML IVFLUSH ×2 (16:10→20:36)
[2024-12-12] MEDS: Divalproex Sodium Sprinkles 125 MG CAP.DR.SPR 1000 MG PO (20:37)
[2024-12-12] MEDS: Triamcinolone Acet 0.1 % Cream 15 GM TUBE 1 APPL TOPICAL (20:37)
[2024-12-12] MEDS: Milk of Magnesia 30 ML ORAL.SUSP 5 ML PO (20:37)
--- NOTE | 2024-12-12 21:16 | HO.PSYCHPN ---
Subjective Subjective Date of Service: 12/12/24 Reason For Visit: Catatonia Subjective Notes: Conditional Voluntary Healthcare Proxy: Yes Interim History: Patient had treatment with ketamine this morning much more active later in the day attending a group smiling more engaged Medication Compliance: Yes Mental Status Exam Mental Status Exam Narrative: Patient casually dressed independently ambulating. More spontaneous of speech mood described as better denies current depression hallucinations or paranoia still limited verbally some hesitation but less poverty of content orozco range of affect no SI or HI impulse control intact Diagnostics Vital Signs (24Hr): Vital Signs - 24 hr 12/12/24 08:30 12/12/24 08:50 12/12/24 09:05 Temperature 97.1 F 97 F Pulse Rate 82 73 72 Respiratory Rate 18 18 18 Blood Pressure 137/74 125/66 125/71 Pulse Oximetry 99 95 95 Oxygen Delivery Method Room Air Room Air Room Air 12/12/24 09:20 12/12/24 09:35 12/12/24 09:50 Temperature 97 F Pulse Rate 71 73 73 Respiratory Rate 18 18 16 Blood Pressure 126/74 129/69 123/75 Pulse Oximetry 96 95 95 Oxygen Delivery Method Room Air Room Air Room Air 12/12/24 10:05 12/12/24 10:20 12/12/24 10:35 Temperature Pulse Rate 75 80 76 Respiratory Rate 16 18 18 Blood Pressure 125/73 140/81 H 137/73 Pulse Oximetry 97 97 98 Oxygen Delivery Method Room Air Room Air Room Air 12/12/24 10:50 12/12/24 20:00 Temperature 98.5 F 97.0 F Pulse Rate 77 89 Respiratory Rate 18 18 Blood Pressure 135/74 132/62 Pulse Oximetry 97 95 Oxygen Delivery Method Room Air Room Air BMI result Body Mass Index 29.0 Labs 11/19/24 10:54 11/19/24 10:54 Imaging Radiology Impressions: ITS Impressions KUB X-Ray 10/28/24 16:45 IMPRESSION: Again seen is a large amount of stool throughout the colon and rectum. Electronically signed by: Jose J Gonzalez MD 10/28/2024 05:20 PM EDT RP PICC Line Insertion 12/06/24 14:58 IMPRESSION: Exchange of midline to a 5 fr 55 cm, dual lumen power PICC PLAN: -The catheter may be used immediately. This procedure was performed by Doug Contreras NP, and directly supervised by Aly Carr M.D. Electronically signed by: Aly Carr MD 12/12/2024 11:36 AM EDT Workstation: [id number] Medications Medications Current Medications Acetaminophen (Acetaminophen 325 Mg Tablet) 650 mg PO Q6H PRN PRN Reason: Headache/Pain, Scale 1-10 Last Admin: 11/01/24 20:01 Dose: 650 mg Al Hydroxide/Mg Hydroxide (Magnesium Hydrox/Alum Hydrox 30 Ml Oral.Susp) 30 ml PO Q6H PRN PRN Reason: Heartburn/Nausea Aripiprazole (Aripiprazole 10 Mg Tablet) 10 mg PO DAILY@1730 [facility] Last Admin: 12/12/24 16:08 Dose: 10 mg Ascorbic Acid (Ascorbic Acid 500 Mg Tablet) [address] [facility] Last Admin: 12/12/24 07:42 Dose: 500 mg Clozapine (Clozapine 25 Mg Tablet) 275 mg PO DAILY@1999 [facility] Heparin Sodium (Porcine) 50 (units/ Sodium Chloride 5 ml) [address] [facility] Last Admin: 12/12/24 20:36 Dose: 50 unit Divalproex Sodium (Divalproex Sodium Sprinkles 125 Mg Cap..Spr) 1,000 mg PO DAILY@1999 [facility] Last Admin: 12/12/24 20:37 Dose: 1,000 mg Ferrous Sulfate (Ferrous Sulfate 324 Mg Tablet.Dr) [address] [facility] Last Admin: 12/12/24 07:42 Dose: 324 mg Finasteride (Finasteride 5 Mg Tablet) [address] [facility] Last Admin: 12/12/24 07:42 Dose: 5 mg Magnesium Hydroxide (Milk Of Magnesia 30 Ml Oral.Susp) 30 ml PO DAILY PRN PRN Reason: Constipation Magnesium Hydroxide (Milk Of Magnesia 30 Ml Oral.Susp) [address] [facility] Last Admin: 12/12/24 20:37 Dose: 5 ml Mirtazapine (Mirtazapine 7.5 Mg Tablet) 22.[address] [facility] Last Admin: 12/12/24 20:39 Dose: 22.5 mg Olanzapine (Olanzapine Odt 10 Mg Tab.Rapdis) 5 mg TRANSLINGU BID PRN PRN Reason: agitation Last Admin: 12/01/24 08:14 Dose: 5 mg Polyethylene Glycol (Polyethylene Glycol 3350 17 Gm Powd.Pack) [address] [facility] Last Admin: 12/12/24 07:44 Dose: Not Given Pramipexole Dihydrochloride (Pramipexole Di-Hcl 0.25 Mg Tablet) 0.[address] [facility] Last Admin: 12/12/24 20:39 Dose: 0.5 mg Senna/Docusate Sodium (Sennosides/Docusate Sodium Tablet) 1 tab PO BID PRN PRN Reason: no BM for more than 3days Sertraline HCl (Sertraline Hcl 100 Mg Tablet) [address] [facility] Last Admin: 12/12/24 07:42 Dose: 100 mg Tamsulosin HCl (Tamsulosin Hcl 0.4 Mg Capsule) 0.[address] [facility] Last Admin: 12/12/24 20:39 Dose: 0.8 mg Thiamine HCl (Thiamine Hcl 100 Mg Tablet) [address] [facility] Last Admin: 12/12/24 07:42 Dose: 100 mg Trazodone HCl (Trazodone Hcl 50 Mg Tablet) 50 mg PO BEDTIME PRN PRN Reason: Insomnia Last Admin: 12/10/24 19:40 Dose: 50 mg Triamcinolone Acetonide (Triamcinolone Acet 0.1 % Cream 15 Gm Tube) [address] [facility]; Protocol Last Admin: 12/12/24 20:37 Dose: 1 appl Allergies Allergies Allergy/AdvReac Type Severity Reaction Status Date / Time No Known Allergies (NKA) Allergy Unknown NONE Verified 10/27/24 19:26 Assessment & Plan Assessment & Plan (1) Schizoaffective disorder: Status: Acute Code(s): F25.9 - Schizoaffective disorder, unspecified (2) Catatonia: Status: Acute Code(s): F06.1 - Catatonic disorder due to known physiological condition (3) Essential hypertension: Status: Acute Code(s): I10 - Essential (primary) hypertension (4) Urinary retention with incomplete bladder emptying: Status: Acute Code(s): R33.9 - Retention of urine, unspecified Plan Schizoaffective DO/Depression with decompensation /Catatonia Treatment per psychiatric team Currently receiving Ketamine treatments. 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 Patient with poor venous access. Consider PICC line or port. Fungal rash to left buttock Triamcinolone cream BID until clear. Urinary retention/BPH Continue Flomax Monitor for retention. Recent UA negative. Plan Assessment and Plan 59 year-old male with hx of schizoaffective disorder, hypertension, urinary retention, type 2 diabetes, depression recently discharged from [facility] on 10/08/2024 after prolonged admission due to treatment resistant catatonia. He had responded to Ketamine treatment, failed ECT with further complications including aspiration. He presented from detention with a change in mental status, he was found wandering in the streets soaked in urine. Depression with decompensation of schizophrenia, catatonia. Status post ketamine treatments, history of ECT with aspiration event Treatment per psych team. Urinary retention/BPH Continue Flomax 0.8mg, Finesteride Dove catheter in place. Follow up urology outpatient Dysphagia Tolerating diet, HOB up. OOB for meals. Mr. Tenorio is a 59 year-old male with hx of schizoaffective disorder recently discharged from [facility] on 10/08/2024 after prologued admission due to treatment resistant catatonia. He had responded to ketamine treatment, failed ECT with further complications including aspiration. He presents with catatonia again including mutism, waxy flexibility. He had one ketamine treatment since he was discharged from the hospital and only partial dose. He was recommended to do weekly ketamine treatments to prevent catatonia. reports he was taking medications as prescribed. Pending clozapine/norclozapine levels. PLAN 1. Admit to S[facility], Sect 12b, 1:1 unsteady gait 2. will check KUB for constipation as pt very poor historian but reports no BM in several days. Will also check bladder scan post void to rule out overflow incontinence due to urinary retention since reports increase incontinence in past few days. Note that he was straight cath while in the ED. 3. restart medications- abilify, sertraline, clozapine, low dose depakote 4. obtain collateral information 5. aftercare panning. 10/29/24 Pt to restart ketamine hcp in effect on 12 b at present 10/30/2024 Patient now on CV by healthcare proxy. Ketamine protocol ordered for the morning the that was previously quite helpful in treating patients catatonia has not responded previously well to lorazepam had only intermittent response to ECT here proxy does not wish ECT treatment and did respond to ketamine Medications continue that previously had been helpful on recent discharge 10/31/2024 Patient given 1st ketamine treatment had respondent previously to a series no change this point. Encourage food and fluids face anxious in appearance mostly mute minimally responsive catatonic symptoms continue. Continue Abilify mirtazapine sertraline Clozaril 150 mg Continue ketamine trial 11/01/2024 Patient remains generally unchanged. Continue clozapine sertraline mirtazapine Abilify 5 mg pramipexole 0.5 t.i.d. part of previous catatonia algorithm. Ketamine scheduled when possible had previously been quite helpful was previously on a 2 week 2 times a week schedule Urinary retention positive urine culture case discussed hospitalist service. Hospitalist consult called. Plan for antibiotics and Dove catheter and then trial without the catheter as possible check electrolytes in the morning may benefit from fluid replacement. Maintain head of the bed elevated supportive nursing care plan to reduce possible congestion 11/02: Continue current regimen and plans 11/03: Continue current plans and regimen Reason for continued inpatient stay 11/05/24 Pt with some imp more alert tolerating ketamine tx needs assist eating walking flat catatonic cont pts catatonia protocal 11/06/2024 Continue plan of care ketamine 11/07/2024 some mild improvement noted continue Monday ketamine treatment 11/07/2024 Patient continues to show improvement from initial catatonia more verbal try to evaluate mood and psychosis. Need clarity why patient was unable to complete outpatient ketamine 11/08/2024 Gradual improvement continues patient able to ambulate independently Dove catheter continues continue ketamine clozapine mirtazapine Abilify 11/09 no change in presentation; continue treatment plan 11/10 Been doing much better today, walking around, talking. He agrees and says he is doing all right.' patient remembers that it was hard for him to talk yesterday but unable to say why. 11/11/2024 Patient has had 2 days of marked improvement unable to explain behavior prior to admission refusing intravenous ketamine what exactly happened home and why he has negative connotations unable to give a clear history regarding this appears to be responding well to continue ketamine increase Depakote 11/12/2024 Will try discontinue Dove catheter and voiding trial. Monitor for cycling change patient appears to be shifting out of catatonia much orozco range of affect future oriented. Ketamine held today scheduled for 821. Continue Abilify clozapine Depakote try and determine lowest schedule for ketamine that maintains patient very little to go by to guide this decision 10/2024 Continue plan of care monitor for martha or confusion ketamine in the morning monitor response to discontinuing Dove 11/14/2024 Patient's some increased anxiety status post ketamine denies psychotic symptoms offered option of lorazepam PRN Will need to evaluate ketamine dosing 11/15/2024 Increase Abilify to 10 mg lower sertraline to 50 mg monitor response question patient overstimulated by antidepressants check Depakote level check ammonia 11/16/24 Continue plan of care check level 11/17/24 Continue to monitor 11/18/2024 Ketamine on hold gradually increase clozapine and Depakote check level 11/19/2024 Patient seems improved orozco affect calmer and more cooperative less irritable. Question adverse reaction to higher dose of sertraline now decreased responding to increased Depakote. Ketamine infusion scheduled for 11/2111/20/2024 Patient continues on prior algorithm for catatonia which includes Abilify clozapine mirtazapine clozapine. He is also on Depakote Depakote level 28.6 ammonia level unremarkable could decrease Depakote monitor response to ketamine see if we can try and discontinue currently 1 time a week monitor for any adverse effect 11/21/24 dep level low can increase ammonia ok can try and see if ketamine could be held 11/22/24 will try amantadine for eps monitor response 11/27/2024 Ketamine in the morning will try half dosing continue amantadine for EPS continue clozapine and Depakote 11/28/2024 Continue plan of care catatonia markedly improved coordinate discharge 11/29/24 Pt improved fx less lable cont cloizapine amantadine new for eps 11/30 Checked vitals and grossly WNL Nursing reports that patient was irritable today. On approach patient did not want to talk and said I am all set.. Room smelled of urine 12/01 Is quite irritable; today patient got kicked out of OT group which is a 1st. On approach patient said that he is all right and acknowledges that he got angry but does not want to talk about it -ordered p.r.n. Ativan which is helped in the past following ketamine -ordered UA 12/02/2024 Ketamine ordered for the morning patient again it or irritable reactive aggressive unwilling to process emotions and thinking amantadine discontinued may be contributing to irritability agitation was prescribed for EPS. Patient not stable for discharge needs frequent cuing for food fluids internally preoccupied again isolated 12 03 24 Patient seems somewhat improved with ketamine treatment at full dosing this morning he is able to ambulate sit in the kitchen needs assist with showering psychomotor retarded but improved from yesterday limited verbally flat. Amantadine discontinued limited options for EPS given patient history of urinary retention avoiding Cogentin amantadine may have caused irritability check Depakote and Clozaril level working to discharge to a [facility] detention when possible 12/04/24 Patient withdrawn and blunted ketamine against scheduled for tomorrow morning has responded previously unclear why he relapsed again. Increase clozapine will need PICC line or port 12/05/2024 Patient seems improved with to intravenous ketamine treatments this week less deep in the catatonia scale blunted with poverty of speech in minimal recheck activity but definitely significant improvement from days ago some increase range of emotion and less delay in speech Clozapine increased Coordination with [facility] 12/06/2024 Patient agreeable placement of PICC line remains with some catatonic symptoms but generally improving needs help and cuing for basic functioning not overly depressed continue clozapine Jillian Feltonakote part of catatonia protocol scheduled ketamine for next week 12/07, 12/08: no change today 12/09/2024 Continue catatonia protocol ketamine for the morning PICC line placed increase mirtazapine consider restart Namenda clozapine has been increased 12/10/2024 Will continue 2 times a week ketamine protocol for catatonia increase sertraline although lorazepam failed previously consider retrial monitor mood 12/11/2024 Ketamine scheduled for 12/12/2024 sertraline increase increase clozapine gradually patient has responded to 2 times a week ketamine previously with a much orozco range of affect and much improvement in mood 12/12/2024 Continue ketamine clozapine increased to 275 improved with ketamine treatment will continue protocol today's the 1st day of any significant improvement need to maintain improvement Informed Consent: further education needed Reason for continued inpatient stay Substantial Risk for: inability to function, rapid decompensation and med/psych decompensation Time Spent With Patient Time: Total time managing care of this patient today ____ minutes.
[2024-12-13 08:00] VITALS: BP 131/71; PULSE 73; RESP 16; TEMP 36.4; O2SAT 99
[2024-12-13] MEDS: Ferrous Sulfate 324 MG TABLET.DR PO (08:51)
--- NOTE | 2024-12-13 11:23 | P.PNPSI_ITS ---
Subjective Subjective Date of Service: 12/13/24 Reason For Visit: Catatonia Subjective Notes: Conditional Voluntary Healthcare Proxy: Yes Interim History: Patient seen psychiatric follow-up. Has responded well to ketamine attending some groups less withdrawn orozco range of affect. Out in the milieu more has been tolerating higher doses of clozapine Medication Compliance: Yes Mental Status Exam Mental Status Exam Narrative: Patient casually dressed cooperative to the interview. Mild oral tremor noted good range of expression states he is feeling better Still limited verbally no SI no HI denies any hallucinations or delusional material Diagnostics Vital Signs (24Hr): Vital Signs - 24 hr 12/12/24 20:00 12/13/24 08:00 Temperature 97.0 F 97.5 F Pulse Rate 89 73 Respiratory Rate 18 16 Blood Pressure 132/62 131/71 Pulse Oximetry 95 99 Oxygen Delivery Method Room Air Room Air BMI result Body Mass Index 29.0 Labs 11/19/24 10:54 11/19/24 10:54 Imaging Radiology Impressions: ITS Impressions KUB X-Ray 10/28/24 16:45 IMPRESSION: Again seen is a large amount of stool throughout the colon and rectum. Electronically signed by: Jose J Gonzalez MD 10/28/2024 05:20 PM EDT RP PICC Line Insertion 12/06/24 14:58 IMPRESSION: Exchange of midline to a 5 fr 55 cm, dual lumen power PICC PLAN: -The catheter may be used immediately. This procedure was performed by Doug Contreras NP, and directly supervised by Aly Carr M.D. Electronically signed by: Aly Carr MD 12/12/2024 11:36 AM EDT RP Workstation: [id number] Medications Medications Current Medications Acetaminophen (Acetaminophen 325 Mg Tablet) 650 mg PO Q6H PRN PRN Reason: Headache/Pain, Scale 1-10 Last Admin: 11/01/24 20:01 Dose: 650 mg Al Hydroxide/Mg Hydroxide (Magnesium Hydrox/Alum Hydrox 30 Ml Oral.Susp) 30 ml PO Q6H PRN PRN Reason: Heartburn/Nausea Aripiprazole (Aripiprazole 10 Mg Tablet) 10 mg PO DAILY@1730 [facility] Last Admin: 12/12/24 16:08 Dose: 10 mg Ascorbic Acid (Ascorbic Acid 500 Mg Tablet) 500 mg PO DAILY [facility] Last Admin: 12/13/24 08:51 Dose: 500 mg Clozapine 200 mg/ Clozapine 75 (mg) 275 mg PO DAILY@1999 [facility] Heparin Sodium (Porcine) 50 (units/ Sodium Chloride 5 ml) 0 units IVFLUSH TID [facility] Last Admin: 12/12/24 20:36 Dose: 50 unit Divalproex Sodium (Divalproex Sodium Sprinkles 125 Mg Cap.Dr.Spr) 1,000 mg PO DAILY@1999 [facility] Last Admin: 12/12/24 20:37 Dose: 1,000 mg Ferrous Sulfate (Ferrous Sulfate 324 Mg Tablet.Dr) 324 mg PO DAILY [facility] Last Admin: 12/13/24 08:51 Dose: 324 mg Finasteride (Finasteride 5 Mg Tablet) 5 mg PO DAILY [facility] Last Admin: 12/13/24 08:51 Dose: 5 mg Magnesium Hydroxide (Milk Of Magnesia 30 Ml Oral.Susp) 30 ml PO DAILY PRN PRN Reason: Constipation Magnesium Hydroxide (Milk Of Magnesia 30 Ml Oral.Susp) 5 ml PO BEDTIME [facility] Last Admin: 12/12/24 20:37 Dose: 5 ml Mirtazapine (Mirtazapine 7.5 Mg Tablet) 22.5 mg PO BEDTIME [facility] Last Admin: 12/12/24 20:39 Dose: 22.5 mg Olanzapine (Olanzapine Odt 10 Mg Tab.Rapdis) 5 mg TRANSLINGU BID PRN PRN Reason: agitation Last Admin: 12/01/24 08:14 Dose: 5 mg Polyethylene Glycol (Polyethylene Glycol 3350 17 Gm Powd.Pack) 17 gm PO DAILY [facility] Last Admin: 12/13/24 08:50 Dose: 17 gm Pramipexole Dihydrochloride (Pramipexole Di-Hcl 0.25 Mg Tablet) 0.5 mg PO TID [facility] Last Admin: 12/13/24 11:16 Dose: 0.5 mg Senna/Docusate Sodium (Sennosides/Docusate Sodium Tablet) 1 tab PO BID PRN PRN Reason: no BM for more than 3days Sertraline HCl (Sertraline Hcl 100 Mg Tablet) 100 mg PO DAILY [facility] Last Admin: 12/13/24 08:51 Dose: 100 mg Tamsulosin HCl (Tamsulosin Hcl 0.4 Mg Capsule) 0.8 mg PO BEDTIME [facility] Last Admin: 12/12/24 20:39 Dose: 0.8 mg Thiamine HCl (Thiamine Hcl 100 Mg Tablet) 100 mg PO DAILY [facility] Last Admin: 12/13/24 08:51 Dose: 100 mg Trazodone HCl (Trazodone Hcl 50 Mg Tablet) 50 mg PO BEDTIME PRN PRN Reason: Insomnia Last Admin: 12/10/24 19:40 Dose: 50 mg Triamcinolone Acetonide (Triamcinolone Acet 0.1 % Cream 15 Gm Tube) 1 appl TOPICAL BID [facility]; Protocol Last Admin: 12/13/24 08:52 Dose: Not Given Allergies Allergies Allergy/AdvReac Type Severity Reaction Status Date / Time No Known Allergies (NKA) Allergy Unknown NONE Verified 10/27/24 19:26 Assessment & Plan Assessment & Plan (1) Schizoaffective disorder: Status: Acute Code(s): F25.9 - Schizoaffective disorder, unspecified (2) Catatonia: Status: Acute Code(s): F06.1 - Catatonic disorder due to known physiological condition (3) Essential hypertension: Status: Acute Code(s): I10 - Essential (primary) hypertension (4) Urinary retention with incomplete bladder emptying: Status: Acute Code(s): R33.9 - Retention of urine, unspecified Plan Schizoaffective DO/Depression with decompensation /Catatonia Treatment per psychiatric team Currently receiving Ketamine treatments. Plan is most likely intermediate ketamine treatments Will need alternative IV access. Patient with poor venous access. Consider PICC line or port. Fungal rash to left buttock Triamcinolone cream BID until clear. Urinary retention/BPH Continue Flomax Monitor for retention. Recent UA negative. Plan Assessment and Plan 59 year-old male with hx of schizoaffective disorder, hypertension, urinary retention, type 2 diabetes, depression recently discharged from on 10/08/2024 after prolonged admission due to treatment resistant catatonia. He had responded to Ketamine treatment, failed ECT with further complications including aspiration. He presented from detention with a change in mental status, he was found wandering in the streets soaked in urine. Depression with decompensation of schizophrenia, catatonia. Status post ketamine treatments, history of ECT with aspiration event Treatment per psych team. Urinary retention/BPH Continue Flomax 0.8mg, Finesteride Dove catheter in place. Follow up urology outpatient Dysphagia Tolerating diet, HOB up. OOB for meals. Mr. 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 He had responded to ketamine treatment, failed ECT with further complications including aspiration. He presents with catatonia again including mutism, waxy flexibility. He had one ketamine treatment since he was discharged from the hospital and only partial dose. He was recommended to do weekly ketamine treatments to prevent catatonia. reports he was taking medications as prescribed. Pending clozapine/norclozapine levels. PLAN 1. Admit to S1, Sect 12b, 1:1 unsteady gait 2. will check KUB for constipation as pt very poor historian but reports no BM in several days. Will also check bladder scan post void to rule out overflow incontinence due to urinary retention since reports increase incontinence in past few days. Note that he was straight cath while in the ED. 3. restart medications- abilify, sertraline, clozapine, low dose depakote 4. obtain collateral information 5. aftercare panning. 10/29/24 Pt to restart ketamine hcp in effect on 12 b at present 10/30/2024 Patient now on CV by healthcare proxy. Ketamine protocol ordered for the morning the that was previously quite helpful in treating patients catatonia has not responded previously well to lorazepam had only intermittent response to ECT here proxy does not wish ECT treatment and did respond to ketamine Medications continue that previously had been helpful on recent discharge 10/31/2024 Patient given 1st ketamine treatment had respondent previously to a series no change this point. Encourage food and fluids face anxious in appearance mostly mute minimally responsive catatonic symptoms continue. Continue Abilify mirtazapine sertraline Clozaril 150 mg Continue ketamine trial 11/01/2024 Patient remains generally unchanged. Continue clozapine sertraline mirtazapine Abilify 5 mg pramipexole 0.5 t.i.d. part of previous catatonia algorithm. Ketamine scheduled when possible had previously been quite helpful was previously on a 2 week 2 times a week schedule Urinary retention positive urine culture case discussed hospitalist service. Hospitalist consult called. Plan for antibiotics and Dove catheter and then trial without the catheter as possible check electrolytes in the morning may benefit from fluid replacement. Maintain head of the bed elevated supportive nursing care plan to reduce possible congestion 11/02: Continue current regimen and plans 11/03: Continue current plans and regimen Reason for continued inpatient stay 11/05/24 Pt with some imp more alert tolerating ketamine tx needs assist eating walking flat catatonic cont pts catatonia protocal 11/06/2024 Continue plan of care ketamine 11/07/2024 some mild improvement noted continue Monday ketamine treatment 11/07/2024 Patient continues to show improvement from initial catatonia more verbal try to evaluate mood and psychosis. Need clarity why patient was unable to complete outpatient ketamine 11/08/2024 Gradual improvement continues patient able to ambulate independently Dove catheter continues continue ketamine clozapine mirtazapine Abilify 11/09 no change in presentation; continue treatment plan 11/10 Been doing much better today, walking around, talking. He agrees and says he is doing all right.' patient remembers that it was hard for him to talk yesterday but unable to say why. 11/11/2024 Patient has had 2 days of marked improvement unable to explain behavior prior to admission refusing intravenous ketamine what exactly happened home and why he has negative connotations unable to give a clear history regarding this appears to be responding well to continue ketamine increase Depakote 11/12/2024 Will try discontinue Dove catheter and voiding trial. Monitor for cycling change patient appears to be shifting out of catatonia much orozco range of affect future oriented. Ketamine held today scheduled for 821. Continue Abilify clozapine Depakote try and determine lowest schedule for ketamine that maintains patient very little to go by to guide this decision 10/2024 Continue plan of care monitor for martha or confusion ketamine in the morning monitor response to discontinuing Dove 11/14/2024 Patient's some increased anxiety status post ketamine denies psychotic symptoms offered option of lorazepam PRN Will need to evaluate ketamine dosing 11/15/2024 Increase Abilify to 10 mg lower sertraline to 50 mg monitor response question patient overstimulated by antidepressants check Depakote level check ammonia 11/16/24 Continue plan of care check level 11/17/24 Continue to monitor 11/18/2024 Ketamine on hold gradually increase clozapine and Depakote check level 11/19/2024 Patient seems improved orozco affect calmer and more cooperative less irritable. Question adverse reaction to higher dose of sertraline now decreased responding to increased Depakote. Ketamine infusion scheduled for 11/2111/20/2024 Patient continues on prior algorithm for catatonia which includes Abilify clozapine mirtazapine clozapine. He is also on Depakote Depakote level 28.6 ammonia level unremarkable could decrease Depakote monitor response to ketamine see if we can try and discontinue currently 1 time a week monitor for any adverse effect 11/21/24 dep level low can increase ammonia ok can try and see if ketamine could be held 11/22/24 will try amantadine for eps monitor response 11/27/2024 Ketamine in the morning will try half dosing continue amantadine for EPS continue clozapine and Depakote 11/28/2024 Continue plan of care catatonia markedly improved coordinate discharge 11/29/24 Pt improved fx less lable cont cloizapine amantadine new for eps 11/30 Checked vitals and grossly WNL Nursing reports that patient was irritable today. On approach patient did not want to talk and said I am all set.. Room smelled of urine 12/01 Is quite irritable; today patient got kicked out of OT group which is a 1st. On approach patient said that he is all right and acknowledges that he got angry but does not want to talk about it -ordered p.r.n. Ativan which is helped in the past following ketamine -ordered UA 12/02/2024 Ketamine ordered for the morning patient again it or irritable reactive aggressive unwilling to process emotions and thinking amantadine discontinued may be contributing to irritability agitation was prescribed for EPS. Patient not stable for discharge needs frequent cuing for food fluids internally preoccupied again isolated 12 03 24 Patient seems somewhat improved with ketamine treatment at full dosing this morning he is able to ambulate sit in the kitchen needs assist with showering psychomotor retarded but improved from yesterday limited verbally flat. Amantadine discontinued limited options for EPS given patient history of urinary retention avoiding Cogentin amantadine may have caused irritability check Depakote and Clozaril level working to discharge to a [facility] detention when possible 12/04/24 Patient withdrawn and blunted ketamine against scheduled for tomorrow morning has responded previously unclear why he relapsed again. Increase clozapine will need PICC line or port 12/05/2024 Patient seems improved with to intravenous ketamine treatments this week less deep in the catatonia scale blunted with poverty of speech in minimal recheck activity but definitely significant improvement from days ago some increase range of emotion and less delay in speech Clozapine increased Coordination with [facility]D 12/06/2024 Patient agreeable placement of PICC line remains with some catatonic symptoms but generally improving needs help and cuing for basic functioning not overly depressed continue clozapine Abilify Depakote part of catatonia protocol scheduled ketamine for next week 12/07, 12/08: no change today 12/09/2024 Continue catatonia protocol ketamine for the morning PICC line placed increase mirtazapine consider restart Namenda clozapine has been increased 12/10/2024 Will continue 2 times a week ketamine protocol for catatonia increase sertraline although lorazepam failed previously consider retrial monitor mood 12/11/2024 Ketamine scheduled for 12/12/2024 sertraline increase increase clozapine gradually patient has responded to 2 times a week ketamine previously with a much orozco range of affect and much improvement in mood 12/12/2024 Continue ketamine clozapine increased to 275 improved with ketamine treatment will continue protocol today's the 1st day of any significant improvement need to maintain improvement 12/13/2024 Continue 2 times a week ketamine for 1 more week increase clozapine to 300 mg Reason for continued inpatient stay Substantial Risk for: inability to function, rapid decompensation and med/psych decompensation Time Spent With Patient Time: Total time managing care of this patient today ____ minutes.
[2024-12-13] MEDS: Heparin Sodium,Porcine Flush 50 UNITS, 0.9 % Sodium Chloride Flush 5 ML IVFLUSH ×3 (13:21→20:54)
--- NOTE | 2024-12-13 13:34 | PC.NURSE ---
PICC line to R arm patent and intact. Flushed per orders. Blood return noted. Tolerated well.
--- NOTE | 2024-12-13 18:00 | PC.NURSE ---
Addendum entered by Sally Stahl RN 12/13/24 18:03: Line is patent, intact. Patient asymptomatic. Tolerated dressing change well. Original Note: PICC line dressing changed.
[2024-12-13 20:00] VITALS: BP 121/67; PULSE 97; RESP 18; TEMP 36.3; O2SAT 95
[2024-12-13] MEDS: Divalproex Sodium Sprinkles 125 MG CAP.DR.SPR 1000 MG PO (20:50)
[2024-12-13] MEDS: Milk of Magnesia 30 ML ORAL.SUSP 5 ML PO (21:24)
[2024-12-14 08:00] VITALS: BP 125/62; PULSE 74; RESP 14; TEMP 36.2; O2SAT 95
[2024-12-14] MEDS: Ferrous Sulfate 324 MG TABLET.DR PO (09:22)
[2024-12-14] MEDS: Heparin Sodium,Porcine Flush 50 UNITS, 0.9 % Sodium Chloride Flush 5 ML IVFLUSH ×3 (09:26→20:42)
[2024-12-14] MEDS: Triamcinolone Acet 0.1 % Cream 15 GM TUBE 1 APPL TOPICAL (09:32)
--- NOTE | 2024-12-14 14:45 | P.PNPSI_ITS ---
Subjective Subjective Date of Service: 12/14/24 Reason For Visit: Catatonia Interim History: Met with patient; discussed with team; chart review irritable today, refusing to answer questions by staff; does not want to engage. Mental Status Exam Mental Status Exam Narrative: Pt is alert and oriented; behavior is irritable, marginally cooperative; patient is not in distress; dressed in casual attire, disheveled; mood is described as ok and affect constricted; eye contact appropriate; Speech is normal rate, volume and prosody and not pressured; no psychomotor agitation/retardation present; thought process is organized and goal directed; Thought content is not disclosed; no delusional ideations expressed; no SI/HI express. Patients insight and judgment impaired Diagnostics Vital Signs (24Hr): Vital Signs - 24 hr 12/13/24 20:00 12/14/24 08:00 Temperature 97.3 F 97.1 F Pulse Rate 97 74 Respiratory Rate 18 14 Blood Pressure 121/67 125/62 Pulse Oximetry 95 95 Oxygen Delivery Method Room Air Room Air BMI result Body Mass Index 29.0 Labs 11/19/24 10:54 11/19/24 10:54 Imaging Radiology Impressions: ITS Impressions KUB X-Ray 10/28/24 16:45 IMPRESSION: Again seen is a large amount of stool throughout the colon and rectum. Electronically signed by: Jose J Gonzalez MD 10/28/2024 05:20 PM EDT RP PICC Line Insertion 12/06/24 14:58 IMPRESSION: Exchange of midline to a 5 fr 55 cm, dual lumen power PICC PLAN: -The catheter may be used immediately. This procedure was performed by Doug Contreras NP, and directly supervised by Aly Carr M.D. Electronically signed by: Aly Carr MD 12/12/2024 11:36 AM EDT RP Workstation: [id number] Medications Medications Current Medications Acetaminophen (Acetaminophen 325 Mg Tablet) 650 mg PO Q6H PRN PRN Reason: Headache/Pain, Scale 1-10 Last Admin: 11/01/24 20:01 Dose: 650 mg Al Hydroxide/Mg Hydroxide (Magnesium Hydrox/Alum Hydrox 30 Ml Oral.Susp) 30 ml PO Q6H PRN PRN Reason: Heartburn/Nausea Aripiprazole (Aripiprazole 10 Mg Tablet) 10 mg PO DAILY@1730 [facility] Last Admin: 12/13/24 17:13 Dose: 10 mg Ascorbic Acid (Ascorbic Acid 500 Mg Tablet) 500 mg PO DAILY [facility] Last Admin: 12/14/24 09:22 Dose: 500 mg Clozapine (Clozapine 100 Mg Tablet) 300 mg PO DAILY@1999 [facility] Heparin Sodium (Porcine) 50 (units/ Sodium Chloride 5 ml) 0 units IVFLUSH TID [facility] Last Admin: 12/14/24 09:26 Dose: 50 unit Divalproex Sodium (Divalproex Sodium Sprinkles 125 Mg Cap.Dr.Spr) 1,000 mg PO DAILY@1999 [facility] Last Admin: 12/13/24 20:50 Dose: 1,000 mg Ferrous Sulfate (Ferrous Sulfate 324 Mg Tablet.Dr) 324 mg PO DAILY [facility] Last Admin: 12/14/24 09:22 Dose: 324 mg Finasteride (Finasteride 5 Mg Tablet) 5 mg PO DAILY [facility] Last Admin: 12/14/24 09:21 Dose: 5 mg Magnesium Hydroxide (Milk Of Magnesia 30 Ml Oral.Susp) 30 ml PO DAILY PRN PRN Reason: Constipation Magnesium Hydroxide (Milk Of Magnesia 30 Ml Oral.Susp) 5 ml PO BEDTIME [facility] Last Admin: 12/13/24 21:24 Dose: 5 ml Mirtazapine (Mirtazapine 7.5 Mg Tablet) 22.5 mg PO BEDTIME [facility] Last Admin: 12/13/24 20:52 Dose: 22.5 mg Olanzapine (Olanzapine Odt 10 Mg Tab.Rapdis) 5 mg TRANSLINGU BID PRN PRN Reason: agitation Last Admin: 12/01/24 08:14 Dose: 5 mg Polyethylene Glycol (Polyethylene Glycol 3350 17 Gm Powd.Pack) 17 gm PO DAILY [facility] Last Admin: 12/14/24 09:30 Dose: 17 gm Pramipexole Dihydrochloride (Pramipexole Di-Hcl 0.25 Mg Tablet) 0.5 mg PO TID [facility] Last Admin: 12/14/24 09:21 Dose: 0.5 mg Senna/Docusate Sodium (Sennosides/Docusate Sodium Tablet) 1 tab PO BID PRN PRN Reason: no BM for more than 3days Sertraline HCl (Sertraline Hcl 100 Mg Tablet) 100 mg PO DAILY [facility] Last Admin: 12/14/24 09:22 Dose: 100 mg Tamsulosin HCl (Tamsulosin Hcl 0.4 Mg Capsule) 0.8 mg PO BEDTIME [facility] Last Admin: 12/13/24 20:52 Dose: 0.8 mg Thiamine HCl (Thiamine Hcl 100 Mg Tablet) 100 mg PO DAILY [facility] Last Admin: 12/14/24 09:22 Dose: 100 mg Trazodone HCl (Trazodone Hcl 50 Mg Tablet) 50 mg PO BEDTIME PRN PRN Reason: Insomnia Last Admin: 12/10/24 19:40 Dose: 50 mg Triamcinolone Acetonide (Triamcinolone Acet 0.1 % Cream 15 Gm Tube) 1 appl TOPICAL BID [facility]; Protocol Last Admin: 12/14/24 09:32 Dose: 1 appl Allergies Allergies Allergy/AdvReac Type Severity Reaction Status Date / Time No Known Allergies (NKA) Allergy Unknown NONE Verified 10/27/24 19:26 Assessment & Plan Assessment & Plan (1) Schizoaffective disorder: Status: Acute Code(s): F25.9 - Schizoaffective disorder, unspecified (2) Catatonia: Status: Acute Code(s): F06.1 - Catatonic disorder due to known physiological condition (3) Essential hypertension: Status: Acute Code(s): I10 - Essential (primary) hypertension (4) Urinary retention with incomplete bladder emptying: Status: Acute Code(s): R33.9 - Retention of urine, unspecified Plan Schizoaffective DO/Depression with decompensation /Catatonia Treatment per psychiatric team Currently receiving Ketamine treatments. Plan is most likely manager terminal ketamine treatments Will need alternative IV access. Patient with poor venous access. Consider PICC line or port. Fungal rash to left buttock Triamcinolone cream BID until clear. Urinary retention/BPH Continue Flomax Monitor for retention. Recent UA negative. Plan Assessment and Plan 59 year-old male with hx of schizoaffective disorder, hypertension, urinary retention, type 2 diabetes, depression recently discharged from on 10/08/2024 after prolonged admission due to treatment resistant catatonia. He had responded to Ketamine treatment, failed ECT with further complications including aspiration. He presented from intermediate with a change in mental status, he was found wandering in the streets soaked in urine. Depression with decompensation of schizophrenia, catatonia. Status post ketamine treatments, history of ECT with aspiration event Treatment per psych team. Urinary retention/BPH Continue Flomax 0.8mg, Finesteride Dove catheter in place. Follow up urology outpatient Dysphagia Tolerating diet, HOB up. OOB for meals. Mr. 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 He had responded to ketamine treatment, failed ECT with further complications including aspiration. He presents with catatonia again including mutism, waxy flexibility. He had one ketamine treatment since he was discharged from the hospital and only partial dose. He was recommended to do weekly ketamine treatments to prevent catatonia. reports he was taking medications as prescribed. Pending clozapine/norclozapine levels. PLAN 1. Admit to , Sect 12b, 1:1 unsteady gait 2. will check KUB for constipation as pt very poor historian but reports no BM in several days. Will also check bladder scan post void to rule out overflow incontinence due to urinary retention since reports increase incontinence in past few days. Note that he was straight cath while in the ED. 3. restart medications- abilify, sertraline, clozapine, low dose depakote 4. obtain collateral information 5. aftercare panning. 10/29/24 Pt to restart ketamine hcp in effect on 12 b at present 10/30/2024 Patient now on CV by healthcare proxy. Ketamine protocol ordered for the morning the that was previously quite helpful in treating patients catatonia has not responded previously well to lorazepam had only intermittent response to ECT here proxy does not wish ECT treatment and did respond to ketamine Medications continue that previously had been helpful on recent discharge 10/31/2024 Patient given 1st ketamine treatment had respondent previously to a series no change this point. Encourage food and fluids face anxious in appearance mostly mute minimally responsive catatonic symptoms continue. Continue Abilify mirtazapine sertraline Clozaril 150 mg Continue ketamine trial 11/01/2024 Patient remains generally unchanged. Continue clozapine sertraline mirtazapine Abilify 5 mg pramipexole 0.5 t.i.d. part of previous catatonia algorithm. Ketamine scheduled when possible had previously been quite helpful was previously on a 2 week 2 times a week schedule Urinary retention positive urine culture case discussed hospitalist service. Hospitalist consult called. Plan for antibiotics and Dove catheter and then trial without the catheter as possible check electrolytes in the morning may benefit from fluid replacement. Maintain head of the bed elevated supportive nursing care plan to reduce possible congestion 11/02: Continue current regimen and plans 11/03: Continue current plans and regimen Reason for continued inpatient stay 11/05/24 Pt with some imp more alert tolerating ketamine tx needs assist eating walking flat catatonic cont pts catatonia protocal 11/06/2024 Continue plan of care ketamine 11/07/2024 some mild improvement noted continue Monday ketamine treatment 11/07/2024 Patient continues to show improvement from initial catatonia more verbal try to evaluate mood and psychosis. Need clarity why patient was unable to complete outpatient ketamine 11/08/2024 Gradual improvement continues patient able to ambulate independently Dove catheter continues continue ketamine clozapine mirtazapine Abilify 11/09 no change in presentation; continue treatment plan 11/10 Been doing much better today, walking around, talking. He agrees and says he is doing all right.' patient remembers that it was hard for him to talk yesterday but unable to say why. 11/11/2024 Patient has had 2 days of marked improvement unable to explain behavior prior to admission refusing intravenous ketamine what exactly happened home and why he has negative connotations unable to give a clear history regarding this appears to be responding well to continue ketamine increase Depakote 11/12/2024 Will try discontinue Dove catheter and voiding trial. Monitor for cycling change patient appears to be shifting out of catatonia much orozco range of affect future oriented. Ketamine held today scheduled for 821. Continue Abilify clozapine Depakote try and determine lowest schedule for ketamine that maintains patient very little to go by to guide this decision 10/2024 Continue plan of care monitor for martha or confusion ketamine in the morning monitor response to discontinuing Dove 11/14/2024 Patient's some increased anxiety status post ketamine denies psychotic symptoms offered option of lorazepam PRN Will need to evaluate ketamine dosing 11/15/2024 Increase Abilify to 10 mg lower sertraline to 50 mg monitor response question patient overstimulated by antidepressants check Depakote level check ammonia 11/16/24 Continue plan of care check level 11/17/24 Continue to monitor 11/18/2024 Ketamine on hold gradually increase clozapine and Depakote check level 11/19/2024 Patient seems improved orozco affect calmer and more cooperative less irritable. Question adverse reaction to higher dose of sertraline now decreased responding to increased Depakote. Ketamine infusion scheduled for 11/2111/20/2024 Patient continues on prior algorithm for catatonia which includes Abilify clozapine mirtazapine clozapine. He is also on Depakote Depakote level 28.6 ammonia level unremarkable could decrease Depakote monitor response to ketamine see if we can try and discontinue currently 1 time a week monitor for any adverse effect 11/21/24 dep level low can increase ammonia ok can try and see if ketamine could be held 11/22/24 will try amantadine for eps monitor response 11/27/2024 Ketamine in the morning will try half dosing continue amantadine for EPS continue clozapine and Depakote 11/28/2024 Continue plan of care catatonia markedly improved coordinate discharge 11/29/24 Pt improved fx less lable cont cloizapine amantadine new for eps 11/30 Checked vitals and grossly WNL Nursing reports that patient was irritable today. On approach patient did not want to talk and said I am all set.. Room smelled of urine 12/01 Is quite irritable; today patient got kicked out of OT group which is a 1st. On approach patient said that he is all right and acknowledges that he got angry but does not want to talk about it -ordered p.r.n. Ativan which is helped in the past following ketamine -ordered UA 12/02/2024 Ketamine ordered for the morning patient again it or irritable reactive aggressive unwilling to process emotions and thinking amantadine discontinued may be contributing to irritability agitation was prescribed for EPS. Patient not stable for discharge needs frequent cuing for food fluids internally preoccupied again isolated 12 03 24 Patient seems somewhat improved with ketamine treatment at full dosing this morning he is able to ambulate sit in the kitchen needs assist with showering psychomotor retarded but improved from yesterday limited verbally flat. Amantadine discontinued limited options for EPS given patient history of urinary retention avoiding Cogentin amantadine may have caused irritability check Depakote and Clozaril level working to discharge to a [facility] intermediate when possible 12/04/24 Patient withdrawn and blunted ketamine against scheduled for tomorrow morning has responded previously unclear why he relapsed again. Increase clozapine will need PICC line or port 12/05/2024 Patient seems improved with to intravenous ketamine treatments this week less deep in the catatonia scale blunted with poverty of speech in minimal recheck activity but definitely significant improvement from days ago some increase range of emotion and less delay in speech Clozapine increased Coordination with [facility]D 12/06/2024 Patient agreeable placement of PICC line remains with some catatonic symptoms but generally improving needs help and cuing for basic functioning not overly depressed continue clozapine Abilify Depakote part of catatonia protocol scheduled ketamine for next week 12/07, 12/08: no change today 12/09/2024 Continue catatonia protocol ketamine for the morning PICC line placed increase mirtazapine consider restart Namenda clozapine has been increased 12/10/2024 Will continue 2 times a week ketamine protocol for catatonia increase sertraline although lorazepam failed previously consider retrial monitor mood 12/11/2024 Ketamine scheduled for 12/12/2024 sertraline increase increase clozapine gradually patient has responded to 2 times a week ketamine previously with a much orozco range of affect and much improvement in mood 12/12/2024 Continue ketamine clozapine increased to 275 improved with ketamine treatment will continue protocol today's the 1st day of any significant improvement need to maintain improvement 12/13/2024 Continue 2 times a week ketamine for 1 more week increase clozapine to 300 mg 12/14 irritable today, refusing to answer questions by staff; does not want to engage. Patient educated on: diagnosis Informed Consent: understands and further education needed Reason for continued inpatient stay Substantial Risk for: inability to function Time Spent With Patient Time: Total time managing care of this patient today ____ minutes.
[2024-12-14 20:00] VITALS: BP 121/69; PULSE 75; RESP 18; TEMP 36.4; O2SAT 95
[2024-12-14] MEDS: Divalproex Sodium Sprinkles 125 MG CAP.DR.SPR 1000 MG PO (20:38)
[2024-12-14] MEDS: Milk of Magnesia 30 ML ORAL.SUSP 5 ML PO (20:38)
[2024-12-15 08:00] VITALS: BP 128/72; PULSE 84; RESP 12; TEMP 36.3; O2SAT 96
[2024-12-15] MEDS: Ferrous Sulfate 324 MG TABLET.DR PO (08:26)
[2024-12-15] MEDS: Heparin Sodium,Porcine Flush 50 UNITS, 0.9 % Sodium Chloride Flush 5 ML IVFLUSH ×3 (08:28→20:50)
[2024-12-15 09:02] LABS: Neut%MD 66.9 %; WBCANC 4.9 X10*3/uL
--- NOTE | 2024-12-15 16:51 | HO.PSYCHPN ---
Subjective Subjective Date of Service: 12/15/24 Reason For Visit: Catatonia Interim History: Met with patient; discussed with team better mood today; friendly on approach. says he's good says meds are good the way the are Mental Status Exam Mental Status Exam Narrative: Pt is alert and oriented; behavior is cooperative and patient is up walking around, talking; friendly on approach, calm; patient is not in distress; dressed in casual attire, unkempt; mood is described as good and affect congruent, more naturally expressive; eye contact a little avoidant; Speech is still sparse but when talking normal rate, volume; no psychomotor agitation/retardation present; thought process is goal directed; Thought content is on tx; otherwise pertinent to relevant topics; no delusional ideations expressed; no expressed SI/HI/AVH. Patients insight and judgment appear improving Diagnostics Vital Signs (24Hr): Vital Signs - 24 hr 12/14/24 20:00 12/15/24 08:00 Temperature 97.5 F 97.3 F Pulse Rate 75 84 Respiratory Rate 18 12 Blood Pressure 121/69 128/72 Pulse Oximetry 95 96 Oxygen Delivery Method Room Air Room Air BMI result Body Mass Index 29.0 Labs 11/19/24 10:54 11/19/24 10:54 Labs: Laboratory Results - last 48 hr 12/15/24 08:45 Absolute Neuts (auto) 3.2 Imaging Radiology Impressions: ITS Impressions KUB X-Ray 10/28/24 16:45 IMPRESSION: Again seen is a large amount of stool throughout the colon and rectum. Electronically signed by: Jose J Gonzalez MD 10/28/2024 05:20 PM EDT RP PICC Line Insertion 12/06/24 14:58 IMPRESSION: Exchange of midline to a 5 fr 55 cm, dual lumen power PICC PLAN: -The catheter may be used immediately. This procedure was performed by Doug Contreras NP, and directly supervised by Aly Carr M.D. Electronically signed by: Aly Carr MD 12/12/2024 11:36 AM EDT RP Workstation: [id number] Medications Medications Current Medications Acetaminophen (Acetaminophen 325 Mg Tablet) 650 mg PO Q6H PRN PRN Reason: Headache/Pain, Scale 1-10 Last Admin: 11/01/24 20:01 Dose: 650 mg Al Hydroxide/Mg Hydroxide (Magnesium Hydrox/Alum Hydrox 30 Ml Oral.Susp) 30 ml PO Q6H PRN PRN Reason: Heartburn/Nausea Aripiprazole (Aripiprazole 10 Mg Tablet) 10 mg PO DAILY@1730 [facility], [facility] Last Admin: 12/14/24 16:59 Dose: 10 mg Ascorbic Acid (Ascorbic Acid 500 Mg Tablet) 500 mg PO DAILY [facility] Last Admin: 12/15/24 08:27 Dose: 500 mg Clozapine (Clozapine 100 Mg Tablet) 300 mg PO DAILY@1999 [facility], [facility] Last Admin: 12/14/24 20:40 Dose: 300 mg Heparin Sodium (Porcine) 50 (units/ Sodium Chloride 5 ml) 0 units IVFLUSH TID [facility], [facility] Last Admin: 12/15/24 15:09 Dose: 50 unit Divalproex Sodium (Divalproex Sodium Sprinkles 125 Mg Cap.Dr.Spr) 1,000 mg PO DAILY@1999 [facility], [facility] Last Admin: 12/14/24 20:38 Dose: 1,000 mg Ferrous Sulfate (Ferrous Sulfate 324 Mg Tablet.) 324 mg PO DAILY [facility] Last Admin: 12/15/24 08:26 Dose: 324 mg Finasteride (Finasteride 5 Mg Tablet) 5 mg PO DAILY [facility] Last Admin: 12/15/24 08:33 Dose: 5 mg Lorazepam (Lorazepam 1 Mg Tablet) 1 mg PO TID PRN PRN Reason: agitation/irritability Magnesium Hydroxide (Milk Of Magnesia 30 Ml Oral.Susp) 30 ml PO DAILY PRN PRN Reason: Constipation Magnesium Hydroxide (Milk Of Magnesia 30 Ml Oral.Susp) 5 ml PO BEDTIME [facility] Last Admin: 12/14/24 20:38 Dose: 5 ml Mirtazapine (Mirtazapine 7.5 Mg Tablet) 22.5 mg PO BEDTIME [facility] Last Admin: 12/14/24 20:40 Dose: 22.5 mg Olanzapine (Olanzapine Odt 10 Mg Tab.Rapdis) 5 mg TRANSLINGU BID PRN PRN Reason: agitation Last Admin: 12/01/24 08:14 Dose: 5 mg Polyethylene Glycol (Polyethylene Glycol 3350 17 Gm Powd.Pack) 17 gm PO DAILY [facility] Last Admin: 12/15/24 09:15 Dose: Not Given Pramipexole Dihydrochloride (Pramipexole Di-Hcl 0.25 Mg Tablet) 0.5 mg PO TID [facility] Last Admin: 12/15/24 15:10 Dose: 0.5 mg Senna/Docusate Sodium (Sennosides/Docusate Sodium Tablet) 1 tab PO BID PRN PRN Reason: no BM for more than 3days Sertraline HCl (Sertraline Hcl 100 Mg Tablet) 100 mg PO DAILY [facility] Last Admin: 12/15/24 08:27 Dose: 100 mg Tamsulosin HCl (Tamsulosin Hcl 0.4 Mg Capsule) 0.8 mg PO BEDTIME KRISTIN Last Admin: 12/14/24 20:40 Dose: 0.8 mg Thiamine HCl (Thiamine Hcl 100 Mg Tablet) 100 mg PO DAILY [facility] Last Admin: 12/15/24 08:27 Dose: 100 mg Trazodone HCl (Trazodone Hcl 50 Mg Tablet) 50 mg PO BEDTIME PRN PRN Reason: Insomnia Last Admin: 12/10/24 19:40 Dose: 50 mg Triamcinolone Acetonide (Triamcinolone Acet 0.1 % Cream 15 Gm Tube) 1 appl TOPICAL BID [facility], [facility]; Protocol Last Admin: 12/15/24 16:35 Dose: Not Given Allergies Allergies Allergy/AdvReac Type Severity Reaction Status Date / Time No Known Allergies (NKA) Allergy Unknown NONE Verified 10/27/24 19:26 Assessment & Plan Assessment & Plan (1) Schizoaffective disorder: Status: Acute Code(s): F25.9 - Schizoaffective disorder, unspecified (2) Catatonia: Status: Acute Code(s): F06.1 - Catatonic disorder due to known physiological condition (3) Essential hypertension: Status: Acute Code(s): I10 - Essential (primary) hypertension (4) Urinary retention with incomplete bladder emptying: Status: Acute Code(s): R33.9 - Retention of urine, unspecified Plan Schizoaffective DO/Depression with decompensation /Catatonia Treatment per psychiatric team Currently receiving Ketamine treatments. Plan is most likely roasterman ketamine treatments Will need alternative IV access. Patient with poor venous access. Consider PICC line or port. Fungal rash to left buttock Triamcinolone cream BID until clear. Urinary retention/BPH Continue Flomax Monitor for retention. Recent UA negative. Plan Assessment and Plan 59 year-old male with hx of schizoaffective disorder, hypertension, urinary retention, type 2 diabetes, depression recently discharged from on 10/08/2024 after prolonged admission due to treatment resistant catatonia. He had responded to Ketamine treatment, failed ECT with further complications including aspiration. He presented from custodial with a change in mental status, he was found wandering in the streets soaked in urine. Depression with decompensation of schizophrenia, catatonia. Status post ketamine treatments, history of ECT with aspiration event Treatment per psych team. Urinary retention/BPH Continue Flomax 0.8mg, Finesteride Dove catheter in place. Follow up urology outpatient Dysphagia Tolerating diet, HOB up. OOB for meals. Mr. Tenorio is a 59 year-old male with hx of schizoaffective disorder recently discharged from [facility] on 10/08/2024 after prologued admission due to treatment resistant catatonia. He had responded to ketamine treatment, failed ECT with further complications including aspiration. He presents with catatonia again including mutism, waxy flexibility. He had one ketamine treatment since he was discharged from the hospital and only partial dose. He was recommended to do weekly ketamine treatments to prevent catatonia. reports he was taking medications as prescribed. Pending clozapine/norclozapine levels. PLAN 1. Admit to S[facility], Sect 12b, 1:1 unsteady gait 2. will check KUB for constipation as pt very poor historian but reports no BM in several days. Will also check bladder scan post void to rule out overflow incontinence due to urinary retention since reports increase incontinence in past few days. Note that he was straight cath while in the ED. 3. restart medications- abilify, sertraline, clozapine, low dose depakote 4. obtain collateral information 5. aftercare panning. 10/29/24 Pt to restart ketamine hcp in effect on 12 b at present 10/30/2024 Patient now on CV by healthcare proxy. Ketamine protocol ordered for the morning the that was previously quite helpful in treating patients catatonia has not responded previously well to lorazepam had only intermittent response to ECT here proxy does not wish ECT treatment and did respond to ketamine Medications continue that previously had been helpful on recent discharge 10/31/2024 Patient given 1st ketamine treatment had respondent previously to a series no change this point. Encourage food and fluids face anxious in appearance mostly mute minimally responsive catatonic symptoms continue. Continue Abilify mirtazapine sertraline Clozaril 150 mg Continue ketamine trial 11/01/2024 Patient remains generally unchanged. Continue clozapine sertraline mirtazapine Abilify 5 mg pramipexole 0.5 t.i.d. part of previous catatonia algorithm. Ketamine scheduled when possible had previously been quite helpful was previously on a 2 week 2 times a week schedule Urinary retention positive urine culture case discussed hospitalist service. Hospitalist consult called. Plan for antibiotics and Dove catheter and then trial without the catheter as possible check electrolytes in the morning may benefit from fluid replacement. Maintain head of the bed elevated supportive nursing care plan to reduce possible congestion 11/02: Continue current regimen and plans 11/03: Continue current plans and regimen Reason for continued inpatient stay 11/05/24 Pt with some imp more alert tolerating ketamine tx needs assist eating walking flat catatonic cont pts catatonia protocal 11/06/2024 Continue plan of care ketamine 11/07/2024 some mild improvement noted continue Monday ketamine treatment 11/07/2024 Patient continues to show improvement from initial catatonia more verbal try to evaluate mood and psychosis. Need clarity why patient was unable to complete outpatient ketamine 11/08/2024 Gradual improvement continues patient able to ambulate independently Dove catheter continues continue ketamine clozapine mirtazapine Abilify 11/09 no change in presentation; continue treatment plan 11/10 Been doing much better today, walking around, talking. He agrees and says he is doing all right.' patient remembers that it was hard for him to talk yesterday but unable to say why. 11/11/2024 Patient has had 2 days of marked improvement unable to explain behavior prior to admission refusing intravenous ketamine what exactly happened home and why he has negative connotations unable to give a clear history regarding this appears to be responding well to continue ketamine increase Depakote 11/12/2024 Will try discontinue Dove catheter and voiding trial. Monitor for cycling change patient appears to be shifting out of catatonia much orozco range of affect future oriented. Ketamine held today scheduled for 821. Continue Abilify clozapine Depakote try and determine lowest schedule for ketamine that maintains patient very little to go by to guide this decision 10/2024 Continue plan of care monitor for martha or confusion ketamine in the morning monitor response to discontinuing Dove 11/14/2024 Patient's some increased anxiety status post ketamine denies psychotic symptoms offered option of lorazepam PRN Will need to evaluate ketamine dosing 11/15/2024 Increase Abilify to 10 mg lower sertraline to 50 mg monitor response question patient overstimulated by antidepressants check Depakote level check ammonia 11/16/24 Continue plan of care check level 11/17/24 Continue to monitor 11/18/2024 Ketamine on hold gradually increase clozapine and Depakote check level 11/19/2024 Patient seems improved orozco affect calmer and more cooperative less irritable. Question adverse reaction to higher dose of sertraline now decreased responding to increased Depakote. Ketamine infusion scheduled for 11/2111/20/2024 Patient continues on prior algorithm for catatonia which includes Abilify clozapine mirtazapine clozapine. He is also on Depakote Depakote level 28.6 ammonia level unremarkable could decrease Depakote monitor response to ketamine see if we can try and discontinue currently 1 time a week monitor for any adverse effect 11/21/24 dep level low can increase ammonia ok can try and see if ketamine could be held 11/22/24 will try amantadine for eps monitor response 11/27/2024 Ketamine in the morning will try half dosing continue amantadine for EPS continue clozapine and Depakote 11/28/2024 Continue plan of care catatonia markedly improved coordinate discharge 11/29/24 Pt improved fx less lable cont cloizapine amantadine new for eps 11/30 Checked vitals and grossly WNL Nursing reports that patient was irritable today. On approach patient did not want to talk and said I am all set.. Room smelled of urine 12/01 Is quite irritable; today patient got kicked out of OT group which is a 1st. On approach patient said that he is all right and acknowledges that he got angry but does not want to talk about it -ordered p.r.n. Ativan which is helped in the past following ketamine -ordered UA 12/02/2024 Ketamine ordered for the morning patient again it or irritable reactive aggressive unwilling to process emotions and thinking amantadine discontinued may be contributing to irritability agitation was prescribed for EPS. Patient not stable for discharge needs frequent cuing for food fluids internally preoccupied again isolated 12 03 24 Patient seems somewhat improved with ketamine treatment at full dosing this morning he is able to ambulate sit in the kitchen needs assist with showering psychomotor retarded but improved from yesterday limited verbally flat. Amantadine discontinued limited options for EPS given patient history of urinary retention avoiding Cogentin amantadine may have caused irritability check Depakote and Clozaril level working to discharge to a [facility] custodial when possible 12/04/24 Patient withdrawn and blunted ketamine against scheduled for tomorrow morning has responded previously unclear why he relapsed again. Increase clozapine will need PICC line or port 12/05/2024 Patient seems improved with to intravenous ketamine treatments this week less deep in the catatonia scale blunted with poverty of speech in minimal recheck activity but definitely significant improvement from days ago some increase range of emotion and less delay in speech Clozapine increased Coordination with [facility]D 12/06/2024 Patient agreeable placement of PICC line remains with some catatonic symptoms but generally improving needs help and cuing for basic functioning not overly depressed continue clozapine Abilify Depakote part of catatonia protocol scheduled ketamine for next week 12/07, 12/08: no change today 12/09/2024 Continue catatonia protocol ketamine for the morning PICC line placed increase mirtazapine consider restart Namenda clozapine has been increased 12/10/2024 Will continue 2 times a week ketamine protocol for catatonia increase sertraline although lorazepam failed previously consider retrial monitor mood 12/11/2024 Ketamine scheduled for 12/12/2024 sertraline increase increase clozapine gradually patient has responded to 2 times a week ketamine previously with a much orozco range of affect and much improvement in mood 12/12/2024 Continue ketamine clozapine increased to 275 improved with ketamine treatment will continue protocol today's the 1st day of any significant improvement need to maintain improvement 12/13/2024 Continue 2 times a week ketamine for 1 more week increase clozapine to 300 mg 12/14 irritable today, refusing to answer questions by staff; does not want to engage. 12/15 morgan sánchez; says he's good and that medications are fine the way they are Patient educated on: diagnosis and medication risk/benefits Informed Consent: understands Reason for continued inpatient stay Substantial Risk for: inability to function Time Spent With Patient Time: Total time managing care of this patient today ____ minutes.
[2024-12-15 20:00] VITALS: BP 133/68; PULSE 81; RESP 17; TEMP 36.3; O2SAT 95
[2024-12-15] MEDS: Divalproex Sodium Sprinkles 125 MG CAP.DR.SPR 1000 MG PO (20:43)
[2024-12-15] MEDS: Milk of Magnesia 30 ML ORAL.SUSP 5 ML PO (20:45)
[2024-12-16 08:00] VITALS: BP 128/62; PULSE 84; RESP 16; TEMP 36.4; O2SAT 94
[2024-12-16] MEDS: Heparin Sodium,Porcine Flush 50 UNITS, 0.9 % Sodium Chloride Flush 5 ML IVFLUSH ×3 (08:27→20:32)
[2024-12-16] MEDS: Ferrous Sulfate 324 MG TABLET.DR PO (08:29)
--- NOTE | 2024-12-16 08:42 | HO.PSYCHPN ---
Subjective Subjective Date of Service: 12/16/24 Reason For Visit: Catatonia Subjective Notes: Conditional Voluntary Healthcare Proxy: Yes Interim History: Patient's case reviewed in treatment planning chart reviewed patient seen. Patient has been cooperative with ketamine infusion has been able to increase clozapine. Remains guarded internally preoccupied does go in the milieu at times but flat limited engagement Medication Compliance: Yes Mental Status Exam Mental Status Exam Narrative: Patient seen casually dressed somewhat restricted. More guarded limited verbal engagement states depressed/okay denies SI denies hallucinations not combative internally preoccupied limited engagement needs encouragement to leave his room Diagnostics Vital Signs (24Hr): Vital Signs - 24 hr 12/15/24 20:00 Temperature 97.3 F Pulse Rate 81 Respiratory Rate 17 Blood Pressure 133/68 Pulse Oximetry 95 Oxygen Delivery Method Room Air BMI result Body Mass Index 29.0 Labs 11/19/24 10:54 11/19/24 10:54 Labs: Laboratory Results - last 48 hr 12/15/24 08:45 Absolute Neuts (auto) 3.2 Imaging Radiology Impressions: ITS Impressions KUB X-Ray 10/28/24 16:45 IMPRESSION: Again seen is a large amount of stool throughout the colon and rectum. Electronically signed by: Jose J Gonzalez MD 10/28/2024 05:20 PM EDT RP PICC Line Insertion 12/06/24 14:58 IMPRESSION: Exchange of midline to a 5 fr 55 cm, dual lumen power PICC PLAN: -The catheter may be used immediately. This procedure was performed by Doug Contreras NP, and directly supervised by Aly Carr M.D. Electronically signed by: Aly Carr MD 12/12/2024 11:36 AM EDT RP Workstation: [id number] Medications Medications Current Medications Acetaminophen (Acetaminophen 325 Mg Tablet) 650 mg PO Q6H PRN PRN Reason: Headache/Pain, Scale 1-10 Last Admin: 11/01/24 20:01 Dose: 650 mg Al Hydroxide/Mg Hydroxide (Magnesium Hydrox/Alum Hydrox 30 Ml Oral.Susp) 30 ml PO Q6H PRN PRN Reason: Heartburn/Nausea Aripiprazole (Aripiprazole 10 Mg Tablet) 10 mg PO DAILY@1730 KRISTIN Last Admin: 12/15/24 16:59 Dose: 10 mg Ascorbic Acid (Ascorbic Acid 500 Mg Tablet) 500 mg PO DAILY [facility] Last Admin: 12/16/24 08:29 Dose: 500 mg Clozapine (Clozapine 100 Mg Tablet) 300 mg PO DAILY@1999 [facility] Last Admin: 12/15/24 20:44 Dose: 300 mg Heparin Sodium (Porcine) 50 (units/ Sodium Chloride 5 ml) 0 units IVFLUSH TID [facility] Last Admin: 12/16/24 08:27 Dose: 50 unit Divalproex Sodium (Divalproex Sodium Sprinkles 125 Mg Cap.) 1,000 mg PO DAILY@1999 [facility] Last Admin: 12/15/24 20:43 Dose: 1,000 mg Ferrous Sulfate (Ferrous Sulfate 324 Mg Tablet.Dr) 324 mg PO DAILY [facility] Last Admin: 12/16/24 08:29 Dose: 324 mg Finasteride (Finasteride 5 Mg Tablet) 5 mg PO DAILY [facility] Last Admin: 12/16/24 08:29 Dose: 5 mg Lorazepam (Lorazepam 1 Mg Tablet) 1 mg PO TID PRN PRN Reason: agitation/irritability Magnesium Hydroxide (Milk Of Magnesia 30 Ml Oral.Susp) 30 ml PO DAILY PRN PRN Reason: Constipation Magnesium Hydroxide (Milk Of Magnesia 30 Ml Oral.Susp) 5 ml PO BEDTIME [facility] Last Admin: 12/15/24 20:45 Dose: 5 ml Mirtazapine (Mirtazapine 7.5 Mg Tablet) 22.5 mg PO BEDTIME [facility] Last Admin: 12/15/24 20:43 Dose: 22.5 mg Olanzapine (Olanzapine Odt 10 Mg Tab.Rapdis) 5 mg TRANSLINGU BID PRN PRN Reason: agitation Last Admin: 12/01/24 08:14 Dose: 5 mg Polyethylene Glycol (Polyethylene Glycol 3350 17 Gm Powd.Pack) 17 gm PO DAILY [facility] Last Admin: 12/16/24 08:30 Dose: 17 gm Pramipexole Dihydrochloride (Pramipexole Di-Hcl 0.25 Mg Tablet) 0.5 mg PO TID [facility] Last Admin: 12/16/24 08:29 Dose: 0.5 mg Senna/Docusate Sodium (Sennosides/Docusate Sodium Tablet) 1 tab PO BID PRN PRN Reason: no BM for more than 3days Sertraline HCl (Sertraline Hcl 100 Mg Tablet) 100 mg PO DAILY [facility] Last Admin: 12/16/24 08:29 Dose: 100 mg Tamsulosin HCl (Tamsulosin Hcl 0.4 Mg Capsule) 0.8 mg PO BEDTIME [facility] Last Admin: 12/15/24 20:44 Dose: 0.8 mg Thiamine HCl (Thiamine Hcl 100 Mg Tablet) 100 mg PO DAILY [facility] Last Admin: 12/16/24 08:29 Dose: 100 mg Trazodone HCl (Trazodone Hcl 50 Mg Tablet) 50 mg PO BEDTIME PRN PRN Reason: Insomnia Last Admin: 12/10/24 19:40 Dose: 50 mg Triamcinolone Acetonide (Triamcinolone Acet 0.1 % Cream 15 Gm Tube) 1 appl TOPICAL BID [facility]; Protocol Last Admin: 12/16/24 08:39 Dose: Not Given Allergies Allergies Allergy/AdvReac Type Severity Reaction Status Date / Time No Known Allergies (NKA) Allergy Unknown NONE Verified 10/27/24 19:26 Assessment & Plan Assessment & Plan (1) Schizoaffective disorder: Status: Acute Code(s): F25.9 - Schizoaffective disorder, unspecified (2) Catatonia: Status: Acute Code(s): F06.1 - Catatonic disorder due to known physiological condition (3) Essential hypertension: Status: Acute Code(s): I10 - Essential (primary) hypertension (4) Urinary retention with incomplete bladder emptying: Status: Acute Code(s): R33.9 - Retention of urine, unspecified Plan Schizoaffective DO/Depression with decompensation /Catatonia Treatment per psychiatric team Currently receiving Ketamine treatments. Plan is most likely retirement ketamine treatments Will need alternative IV access. Patient with poor venous access. Consider PICC line or port. Fungal rash to left buttock Triamcinolone cream BID until clear. Urinary retention/BPH Continue Flomax Monitor for retention. Recent UA negative. Plan Assessment and Plan 59 year-old male with hx of schizoaffective disorder, hypertension, urinary retention, type 2 diabetes, depression recently discharged from on 10/08/2024 after prolonged admission due to treatment resistant catatonia. He had responded to Ketamine treatment, failed ECT with further complications including aspiration. He presented from [facility] with a change in mental status, he was found wandering in the streets soaked in urine. Depression with decompensation of schizophrenia, catatonia. Status post ketamine treatments, history of ECT with aspiration event Treatment per psych team. Urinary retention/BPH Continue Flomax 0.8mg, Finesteride Dove catheter in place. Follow up urology outpatient Dysphagia Tolerating diet, HOB up. OOB for meals. Mr. 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 He had responded to ketamine treatment, failed ECT with further complications including aspiration. He presents with catatonia again including mutism, waxy flexibility. He had one ketamine treatment since he was discharged from the hospital and only partial dose. He was recommended to do weekly ketamine treatments to prevent catatonia. reports he was taking medications as prescribed. Pending clozapine/norclozapine levels. PLAN 1. Admit to , Sect 12b, 1:1 unsteady gait 2. will check KUB for constipation as pt very poor historian but reports no BM in several days. Will also check bladder scan post void to rule out overflow incontinence due to urinary retention since reports increase incontinence in past few days. Note that he was straight cath while in the ED. 3. restart medications- abilify, sertraline, clozapine, low dose depakote 4. obtain collateral information 5. aftercare panning. 10/29/24 Pt to restart ketamine hcp in effect on 12 b at present 10/30/2024 Patient now on CV by healthcare proxy. Ketamine protocol ordered for the morning the that was previously quite helpful in treating patients catatonia has not responded previously well to lorazepam had only intermittent response to ECT here proxy does not wish ECT treatment and did respond to ketamine Medications continue that previously had been helpful on recent discharge 10/31/2024 Patient given 1st ketamine treatment had respondent previously to a series no change this point. Encourage food and fluids face anxious in appearance mostly mute minimally responsive catatonic symptoms continue. Continue Abilify mirtazapine sertraline Clozaril 150 mg Continue ketamine trial 11/01/2024 Patient remains generally unchanged. Continue clozapine sertraline mirtazapine Abilify 5 mg pramipexole 0.5 t.i.d. part of previous catatonia algorithm. Ketamine scheduled when possible had previously been quite helpful was previously on a 2 week 2 times a week schedule Urinary retention positive urine culture case discussed hospitalist service. Hospitalist consult called. Plan for antibiotics and Dove catheter and then trial without the catheter as possible check electrolytes in the morning may benefit from fluid replacement. Maintain head of the bed elevated supportive nursing care plan to reduce possible congestion 11/02: Continue current regimen and plans 11/03: Continue current plans and regimen Reason for continued inpatient stay 11/05/24 Pt with some imp more alert tolerating ketamine tx needs assist eating walking flat catatonic cont pts catatonia protocal 11/06/2024 Continue plan of care ketamine 11/07/2024 some mild improvement noted continue Monday ketamine treatment 11/07/2024 Patient continues to show improvement from initial catatonia more verbal try to evaluate mood and psychosis. Need clarity why patient was unable to complete outpatient ketamine 11/08/2024 Gradual improvement continues patient able to ambulate independently Dove catheter continues continue ketamine clozapine mirtazapine Abilify 11/09 no change in presentation; continue treatment plan 11/10 Been doing much better today, walking around, talking. He agrees and says he is doing all right.' patient remembers that it was hard for him to talk yesterday but unable to say why. 11/11/2024 Patient has had 2 days of marked improvement unable to explain behavior prior to admission refusing intravenous ketamine what exactly happened home and why he has negative connotations unable to give a clear history regarding this appears to be responding well to continue ketamine increase Depakote 11/12/2024 Will try discontinue Dove catheter and voiding trial. Monitor for cycling change patient appears to be shifting out of catatonia much orozco range of affect future oriented. Ketamine held today scheduled for 821. Continue Abilify clozapine Depakote try and determine lowest schedule for ketamine that maintains patient very little to go by to guide this decision 10/2024 Continue plan of care monitor for martha or confusion ketamine in the morning monitor response to discontinuing Dove 11/14/2024 Patient's some increased anxiety status post ketamine denies psychotic symptoms offered option of lorazepam PRN Will need to evaluate ketamine dosing 11/15/2024 Increase Abilify to 10 mg lower sertraline to 50 mg monitor response question patient overstimulated by antidepressants check Depakote level check ammonia 11/16/24 Continue plan of care check level 11/17/24 Continue to monitor 11/18/2024 Ketamine on hold gradually increase clozapine and Depakote check level 11/19/2024 Patient seems improved orozco affect calmer and more cooperative less irritable. Question adverse reaction to higher dose of sertraline now decreased responding to increased Depakote. Ketamine infusion scheduled for 11/2111/20/2024 Patient continues on prior algorithm for catatonia which includes Abilify clozapine mirtazapine clozapine. He is also on Depakote Depakote level 28.6 ammonia level unremarkable could decrease Depakote monitor response to ketamine see if we can try and discontinue currently 1 time a week monitor for any adverse effect 11/21/24 dep level low can increase ammonia ok can try and see if ketamine could be held 11/22/24 will try amantadine for eps monitor response 11/27/2024 Ketamine in the morning will try half dosing continue amantadine for EPS continue clozapine and Depakote 11/28/2024 Continue plan of care catatonia markedly improved coordinate discharge 11/29/24 Pt improved fx less lable cont cloizapine amantadine new for eps 11/30 Checked vitals and grossly WNL Nursing reports that patient was irritable today. On approach patient did not want to talk and said I am all set.. Room smelled of urine 12/01 Is quite irritable; today patient got kicked out of OT group which is a 1st. On approach patient said that he is all right and acknowledges that he got angry but does not want to talk about it -ordered p.r.n. Ativan which is helped in the past following ketamine -ordered UA 12/02/2024 Ketamine ordered for the morning patient again it or irritable reactive aggressive unwilling to process emotions and thinking amantadine discontinued may be contributing to irritability agitation was prescribed for EPS. Patient not stable for discharge needs frequent cuing for food fluids internally preoccupied again isolated 12 03 24 Patient seems somewhat improved with ketamine treatment at full dosing this morning he is able to ambulate sit in the kitchen needs assist with showering psychomotor retarded but improved from yesterday limited verbally flat. Amantadine discontinued limited options for EPS given patient history of urinary retention avoiding Cogentin amantadine may have caused irritability check Depakote and Clozaril level working to discharge to a [facility] when possible 12/04/24 Patient withdrawn and blunted ketamine against scheduled for tomorrow morning has responded previously unclear why he relapsed again. Increase clozapine will need PICC line or port 12/05/2024 Patient seems improved with to intravenous ketamine treatments this week less deep in the catatonia scale blunted with poverty of speech in minimal recheck activity but definitely significant improvement from days ago some increase range of emotion and less delay in speech Clozapine increased Coordination with [facility] 12/06/2024 Patient agreeable placement of PICC line remains with some catatonic symptoms but generally improving needs help and cuing for basic functioning not overly depressed continue clozapine Abilify Depakote part of catatonia protocol scheduled ketamine for next week 12/07, 12/08: no change today 12/09/2024 Continue catatonia protocol ketamine for the morning PICC line placed increase mirtazapine consider restart Namenda clozapine has been increased 12/10/2024 Will continue 2 times a week ketamine protocol for catatonia increase sertraline although lorazepam failed previously consider retrial monitor mood 12/11/2024 Ketamine scheduled for 12/12/2024 sertraline increase increase clozapine gradually patient has responded to 2 times a week ketamine previously with a much orozco range of affect and much improvement in mood 12/12/2024 Continue ketamine clozapine increased to 275 improved with ketamine treatment will continue protocol today's the 1st day of any significant improvement need to maintain improvement 12/13/2024 Continue 2 times a week ketamine for 1 more week increase clozapine to 300 mg 12/14 irritable today, refusing to answer questions by staff; does not want to engage. 12/15 princess, friendler; says he's good and that medications are fine the way they are 12/16 Patient's ANC has decreased to 3.2 will repeat patient still with restricted affect needs cuing for most behavior does eat and drink Limited range of affect increase mirtazapine to 30 mg scheduled for ketamine 923 PICC line has been placed Informed Consent: does not understand Reason for continued inpatient stay Substantial Risk for: inability to function and rapid decompensation Time Spent With Patient Time: Total time managing care of this patient today __30__ minutes.
[2024-12-16 20:00] VITALS: BP 146/70; PULSE 80; TEMP 36.6; O2SAT 94
[2024-12-16] MEDS: Divalproex Sodium Sprinkles 125 MG CAP.DR.SPR 1000 MG PO (20:34)
[2024-12-16] MEDS: Milk of Magnesia 30 ML ORAL.SUSP 5 ML PO (21:08)
[2024-12-17] VITALS (10 sets, daily range): BP systolic 125–141; BP diastolic 68–74; PULSE 80–88; RESP 18; TEMP 36.2–36.9; O2SAT 93–98
[2024-12-17] MEDS: Ferrous Sulfate 324 MG TABLET.DR PO (07:58)
[2024-12-17] MEDS: Heparin Sodium,Porcine Flush 50 UNITS, 0.9 % Sodium Chloride Flush 5 ML IVFLUSH ×3 (07:59→20:05)
[2024-12-17 16:02] LABS: MANUAL DIFF FLAG NO
[2024-12-17 16:12] LABS: Hematocrit 37.8 % (42.0-52.0); Hemoglobin 12.2 g/dl (14.0-18.0); Imm Gran Abs Auto 0.08 X10*3/uL (0.00-0.03); Imm Gran Pct Auto 0.8 % (0.0-0.4); Lymphocytes Absolute Auto 1.6 X10*3/uL (1.2-4.9); Mean Corpuscular HGB Conc 32.3 g/dl (31.0-36.0); Mean Corpuscular Hemoglobin 29.0 pg (27.0-33.0); Mean Corpuscular Volume 89.8 fL (80.0-98.0); NRBC Abs Auto 0.000 X10*3/uL (0.0-0.012); NRBC Pct Auto 0.0 /100WBC (0.0-0.2); Platelet Count 139 X10*3/uL (160-400); Red Blood Count 4.21 X10*6/uL (4.60-5.80); White Blood Count 10.2 X10*3/uL (4.8-10.8)
--- NOTE | 2024-12-17 16:12 | HO.PSYCHPN ---
Subjective Subjective Date of Service: 12/17/24 Reason For Visit: Catatonia Subjective Notes: Conditional Voluntary Healthcare Proxy: Yes Interim History: Patient seen psychiatric follow-up ketamine treatment complete repeat ANC was not decreased. Mood flat withdrawn eating and drinking okay limited engagement Medication Compliance: Yes Mental Status Exam Mental Status Exam Narrative: Patient seen casually dressed somewhat restricted. More guarded limited verbal engagement states depressed/okay denies SI denies hallucinations not combative internally preoccupied limited engagement needs encouragement to leave his room Poverty of content Diagnostics Vital Signs (24Hr): Vital Signs - 24 hr 12/16/24 20:00 12/17/24 09:15 12/17/24 09:30 Temperature 97.8 F 98.3 F Pulse Rate 80 88 84 Respiratory Rate 18 18 Blood Pressure 146/70 H 141/73 H 126/69 Pulse Oximetry 94 93 93 Oxygen Delivery Method Room Air Room Air Room Air 12/17/24 09:45 12/17/24 10:00 12/17/24 10:15 Temperature 98.3 F Pulse Rate 83 85 81 Respiratory Rate 18 18 18 Blood Pressure 132/69 131/72 129/71 Pulse Oximetry 93 94 93 Oxygen Delivery Method Room Air Room Air Room Air 12/17/24 10:30 12/17/24 10:45 12/17/24 11:00 Temperature Pulse Rate 82 80 81 Respiratory Rate 18 18 18 Blood Pressure 125/68 128/74 129/71 Pulse Oximetry 93 93 94 Oxygen Delivery Method Room Air Room Air Room Air 12/17/24 11:15 Temperature 98.5 F Pulse Rate 81 Respiratory Rate 18 Blood Pressure 133/70 Pulse Oximetry 94 Oxygen Delivery Method Room Air BMI result Body Mass Index 29.0 Labs 12/17/24 15:52 11/19/24 10:54 Imaging Radiology Impressions: ITS Impressions KUB X-Ray 10/28/24 16:45 IMPRESSION: Again seen is a large amount of stool throughout the colon and rectum. Electronically signed by: Jose J Gonzalez MD 10/28/2024 05:20 PM EDT PICC Line Insertion 12/06/24 14:58 IMPRESSION: Exchange of midline to a 5 fr 55 cm, dual lumen power PICC PLAN: -The catheter may be used immediately. This procedure was performed by Doug Contreras NP, and directly supervised by Aly Carr M.D. Electronically signed by: Aly Carr MD 12/12/2024 11:36 AM EDT Workstation: [id number] Medications Medications Current Medications Acetaminophen (Acetaminophen 325 Mg Tablet) 650 mg PO Q6H PRN PRN Reason: Headache/Pain, Scale 1-10 Last Admin: 11/01/24 20:01 Dose: 650 mg Al Hydroxide/Mg Hydroxide (Magnesium Hydrox/Alum Hydrox 30 Ml Oral.Susp) 30 ml PO Q6H PRN PRN Reason: Heartburn/Nausea Aripiprazole (Aripiprazole 10 Mg Tablet) 10 mg PO DAILY@1730 [facility] Last Admin: 12/16/24 17:15 Dose: 10 mg Ascorbic Acid (Ascorbic Acid 500 Mg Tablet) 500 mg PO DAILY [facility] Last Admin: 12/17/24 07:59 Dose: 500 mg Clozapine (Clozapine 100 Mg Tablet) 300 mg PO DAILY@1999 [facility] Last Admin: 12/16/24 20:34 Dose: 300 mg Heparin Sodium (Porcine) 50 (units/ Sodium Chloride 5 ml) 0 units IVFLUSH TID [facility] Last Admin: 12/17/24 15:00 Dose: 5 unit Divalproex Sodium (Divalproex Sodium Sprinkles 125 Mg Cap.) 1,000 mg PO DAILY@1999 [facility] Last Admin: 12/16/24 20:34 Dose: 1,000 mg Ferrous Sulfate (Ferrous Sulfate 324 Mg Tablet.Dr) 324 mg PO DAILY [facility] Last Admin: 12/17/24 07:58 Dose: 324 mg Finasteride (Finasteride 5 Mg Tablet) 5 mg PO DAILY [facility] Last Admin: 12/17/24 07:58 Dose: 5 mg Ketamine HCl 45 mg/ Sodium (Chloride) 45 mls @ 45 mls/hr IV ONCE ONE Stop: 12/19/24 08:29 Lorazepam (Lorazepam 1 Mg Tablet) 1 mg PO TID PRN PRN Reason: agitation/irritability Magnesium Hydroxide (Milk Of Magnesia 30 Ml Oral.Susp) 30 ml PO DAILY PRN PRN Reason: Constipation Magnesium Hydroxide (Milk Of Magnesia 30 Ml Oral.Susp) 5 ml PO BEDTIME [facility] Last Admin: 12/16/24 21:08 Dose: 5 ml Mirtazapine (Mirtazapine 7.5 Mg Tablet) 22.5 mg PO BEDTIME [facility] Last Admin: 12/16/24 20:34 Dose: 22.5 mg Olanzapine (Olanzapine Odt 10 Mg Tab.Rapdis) 5 mg TRANSLINGU BID PRN PRN Reason: agitation Last Admin: 12/01/24 08:14 Dose: 5 mg Polyethylene Glycol (Polyethylene Glycol 3350 17 Gm Powd.Pack) 17 gm PO DAILY [facility] Last Admin: 12/17/24 07:59 Dose: 17 gm Pramipexole Dihydrochloride (Pramipexole Di-Hcl 0.25 Mg Tablet) 0.5 mg PO TID [facility] Last Admin: 12/17/24 14:53 Dose: 0.5 mg Senna/Docusate Sodium (Sennosides/Docusate Sodium Tablet) 1 tab PO BID PRN PRN Reason: no BM for more than 3days Sertraline HCl (Sertraline Hcl 100 Mg Tablet) 100 mg PO DAILY [facility] Last Admin: 12/17/24 07:59 Dose: 100 mg Tamsulosin HCl (Tamsulosin Hcl 0.4 Mg Capsule) 0.8 mg PO BEDTIME [facility] Last Admin: 12/16/24 20:34 Dose: 0.8 mg Thiamine HCl (Thiamine Hcl 100 Mg Tablet) 100 mg PO DAILY [facility] Last Admin: 12/17/24 07:59 Dose: 100 mg Trazodone HCl (Trazodone Hcl 50 Mg Tablet) 50 mg PO BEDTIME PRN PRN Reason: Insomnia Last Admin: 12/10/24 19:40 Dose: 50 mg Triamcinolone Acetonide (Triamcinolone Acet 0.1 % Cream 15 Gm Tube) 1 appl TOPICAL BID [facility]; Protocol Last Admin: 12/17/24 07:59 Dose: Not Given Allergies Allergies Allergy/AdvReac Type Severity Reaction Status Date / Time No Known Allergies (NKA) Allergy Unknown NONE Verified 10/27/24 19:26 Assessment & Plan Assessment & Plan (1) Schizoaffective disorder: Status: Acute Code(s): F25.9 - Schizoaffective disorder, unspecified (2) Catatonia: Status: Acute Code(s): F06.1 - Catatonic disorder due to known physiological condition (3) Essential hypertension: Status: Acute Code(s): I10 - Essential (primary) hypertension (4) Urinary retention with incomplete bladder emptying: Status: Acute Code(s): R33.9 - Retention of urine, unspecified Plan Schizoaffective DO/Depression with decompensation /Catatonia Treatment per psychiatric team Currently receiving Ketamine treatments. 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 Patient with poor venous access. Consider PICC line or port. Fungal rash to left buttock Triamcinolone cream BID until clear. Urinary retention/BPH Continue Flomax Monitor for retention. Recent UA negative. Plan Assessment and Plan 59 year-old male with hx of schizoaffective disorder, hypertension, urinary retention, type 2 diabetes, depression recently discharged from on 10/08/2024 after prolonged admission due to treatment resistant catatonia. He had responded to Ketamine treatment, failed ECT with further complications including aspiration. He presented from retirement with a change in mental status, he was found wandering in the streets soaked in urine. Depression with decompensation of schizophrenia, catatonia. Status post ketamine treatments, history of ECT with aspiration event Treatment per psych team. Urinary retention/BPH Continue Flomax 0.8mg, Finesteride Dove catheter in place. Follow up urology outpatient Dysphagia Tolerating diet, HOB up. OOB for meals. Mr. 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 He had responded to ketamine treatment, failed ECT with further complications including aspiration. He presents with catatonia again including mutism, waxy flexibility. He had one ketamine treatment since he was discharged from the hospital and only partial dose. He was recommended to do weekly ketamine treatments to prevent catatonia. reports he was taking medications as prescribed. Pending clozapine/norclozapine levels. PLAN 1. Admit to S1, Sect 12b, 1:1 unsteady gait 2. will check KUB for constipation as pt very poor historian but reports no BM in several days. Will also check bladder scan post void to rule out overflow incontinence due to urinary retention since reports increase incontinence in past few days. Note that he was straight cath while in the ED. 3. restart medications- abilify, sertraline, clozapine, low dose depakote 4. obtain collateral information 5. aftercare panning. 10/29/24 Pt to restart ketamine hcp in effect on 12 b at present 10/30/2024 Patient now on CV by healthcare proxy. Ketamine protocol ordered for the morning the that was previously quite helpful in treating patients catatonia has not responded previously well to lorazepam had only intermittent response to ECT here proxy does not wish ECT treatment and did respond to ketamine Medications continue that previously had been helpful on recent discharge 10/31/2024 Patient given 1st ketamine treatment had respondent previously to a series no change this point. Encourage food and fluids face anxious in appearance mostly mute minimally responsive catatonic symptoms continue. Continue Abilify mirtazapine sertraline Clozaril 150 mg Continue ketamine trial 11/01/2024 Patient remains generally unchanged. Continue clozapine sertraline mirtazapine Abilify 5 mg pramipexole 0.5 t.i.d. part of previous catatonia algorithm. Ketamine scheduled when possible had previously been quite helpful was previously on a 2 week 2 times a week schedule Urinary retention positive urine culture case discussed hospitalist service. Hospitalist consult called. Plan for antibiotics and Dove catheter and then trial without the catheter as possible check electrolytes in the morning may benefit from fluid replacement. Maintain head of the bed elevated supportive nursing care plan to reduce possible congestion 11/02: Continue current regimen and plans 11/03: Continue current plans and regimen Reason for continued inpatient stay 11/05/24 Pt with some imp more alert tolerating ketamine tx needs assist eating walking flat catatonic cont pts catatonia protocal 11/06/2024 Continue plan of care ketamine 11/07/2024 some mild improvement noted continue Monday ketamine treatment 11/07/2024 Patient continues to show improvement from initial catatonia more verbal try to evaluate mood and psychosis. Need clarity why patient was unable to complete outpatient ketamine 11/08/2024 Gradual improvement continues patient able to ambulate independently Dove catheter continues continue ketamine clozapine mirtazapine Abilify 11/09 no change in presentation; continue treatment plan 11/10 Been doing much better today, walking around, talking. He agrees and says he is doing all right.' patient remembers that it was hard for him to talk yesterday but unable to say why. 11/11/2024 Patient has had 2 days of marked improvement unable to explain behavior prior to admission refusing intravenous ketamine what exactly happened home and why he has negative connotations unable to give a clear history regarding this appears to be responding well to continue ketamine increase Depakote 11/12/2024 Will try discontinue Dvoe catheter and voiding trial. Monitor for cycling change patient appears to be shifting out of catatonia much orozco range of affect future oriented. Ketamine held today scheduled for 821. Continue Abilify clozapine Depakote try and determine lowest schedule for ketamine that maintains patient very little to go by to guide this decision 10/2024 Continue plan of care monitor for martha or confusion ketamine in the morning monitor response to discontinuing Dove 11/14/2024 Patient's some increased anxiety status post ketamine denies psychotic symptoms offered option of lorazepam PRN Will need to evaluate ketamine dosing 11/15/2024 Increase Abilify to 10 mg lower sertraline to 50 mg monitor response question patient overstimulated by antidepressants check Depakote level check ammonia 11/16/24 Continue plan of care check level 11/17/24 Continue to monitor 11/18/2024 Ketamine on hold gradually increase clozapine and Depakote check level 11/19/2024 Patient seems improved orozco affect calmer and more cooperative less irritable. Question adverse reaction to higher dose of sertraline now decreased responding to increased Depakote. Ketamine infusion scheduled for 11/2111/20/2024 Patient continues on prior algorithm for catatonia which includes Abilify clozapine mirtazapine clozapine. He is also on Depakote Depakote level 28.6 ammonia level unremarkable could decrease Depakote monitor response to ketamine see if we can try and discontinue currently 1 time a week monitor for any adverse effect 11/21/24 dep level low can increase ammonia ok can try and see if ketamine could be held 11/22/24 will try amantadine for eps monitor response 11/27/2024 Ketamine in the morning will try half dosing continue amantadine for EPS continue clozapine and Depakote 11/28/2024 Continue plan of care catatonia markedly improved coordinate discharge 11/29/24 Pt improved fx less lable cont cloizapine amantadine new for eps 11/30 Checked vitals and grossly WNL Nursing reports that patient was irritable today. On approach patient did not want to talk and said I am all set.. Room smelled of urine 12/01 Is quite irritable; today patient got kicked out of OT group which is a 1st. On approach patient said that he is all right and acknowledges that he got angry but does not want to talk about it -ordered p.r.n. Ativan which is helped in the past following ketamine -ordered UA 12/02/2024 Ketamine ordered for the morning patient again it or irritable reactive aggressive unwilling to process emotions and thinking amantadine discontinued may be contributing to irritability agitation was prescribed for EPS. Patient not stable for discharge needs frequent cuing for food fluids internally preoccupied again isolated 12 03 24 Patient seems somewhat improved with ketamine treatment at full dosing this morning he is able to ambulate sit in the kitchen needs assist with showering psychomotor retarded but improved from yesterday limited verbally flat. Amantadine discontinued limited options for EPS given patient history of urinary retention avoiding Cogentin amantadine may have caused irritability check Depakote and Clozaril level working to discharge to a [facility] retirement when possible 12/04/24 Patient withdrawn and blunted ketamine against scheduled for tomorrow morning has responded previously unclear why he relapsed again. Increase clozapine will need PICC line or port 12/05/2024 Patient seems improved with to intravenous ketamine treatments this week less deep in the catatonia scale blunted with poverty of speech in minimal recheck activity but definitely significant improvement from days ago some increase range of emotion and less delay in speech Clozapine increased Coordination with [facility] 12/06/2024 Patient agreeable placement of PICC line remains with some catatonic symptoms but generally improving needs help and cuing for basic functioning not overly depressed continue clozapine Abilify Depakote part of catatonia protocol scheduled ketamine for next week 12/07, 12/08: no change today 12/09/2024 Continue catatonia protocol ketamine for the morning PICC line placed increase mirtazapine consider restart Namenda clozapine has been increased 12/10/2024 Will continue 2 times a week ketamine protocol for catatonia increase sertraline although lorazepam failed previously consider retrial monitor mood 12/11/2024 Ketamine scheduled for 12/12/2024 sertraline increase increase clozapine gradually patient has responded to 2 times a week ketamine previously with a much orozco range of affect and much improvement in mood 12/12/2024 Continue ketamine clozapine increased to 275 improved with ketamine treatment will continue protocol today's the 1st day of any significant improvement need to maintain improvement 12/13/2024 Continue 2 times a week ketamine for 1 more week increase clozapine to 300 mg 12/14 irritable today, refusing to answer questions by staff; does not want to engage. 12/15 brighter, friendler; says he's good and that medications are fine the way they are 12/16 Patient's ANC has decreased to 3.2 will repeat patient still with restricted affect needs cuing for most behavior does eat and drink Limited range of affect increase mirtazapine to 30 mg scheduled for ketamine 923 PICC line has been placed 12/17/[address] Reinaldo Munoz mood flat with some periods of increased range of affect poverty of content continues some internal preoccupation patient on sertraline 100 mirtazapine 30 Abilify 10 clozapine 300 ketamine b.i.d. trying to see if there is setting with [facility] meeting organized Informed Consent: further education needed Reason for continued inpatient stay Substantial Risk for: inability to function and rapid decompensation Time Spent With Patient Time: Total time managing care of this patient today ____ minutes.
[2024-12-17] MEDS: Divalproex Sodium Sprinkles 125 MG CAP.DR.SPR 1000 MG PO (20:03)
[2024-12-17] MEDS: Milk of Magnesia 30 ML ORAL.SUSP 5 ML PO (20:04)
[2024-12-18 08:00] VITALS: BP 136/66; PULSE 88; RESP 18; TEMP 36.6; O2SAT 93
[2024-12-18] MEDS: Ferrous Sulfate 324 MG TABLET.DR PO (08:30)
[2024-12-18] MEDS: Heparin Sodium,Porcine Flush 50 UNITS, 0.9 % Sodium Chloride Flush 5 ML IVFLUSH ×3 (08:32→20:29)
--- NOTE | 2024-12-18 09:24 | HO.PSYCHPN ---
Subjective Subjective Date of Service: 12/18/24 Reason For Visit: Catatonia Subjective Notes: Conditional Voluntary Healthcare Proxy: Yes Interim History: Patient found lying in his bed. He is alert and oriented to person, place, and time. He notes that he has been eating and sleeping well. He has been doing well and slept 8 hours per nursing. He denies SI/HI/AH/VH. Medication Compliance: Yes Side effects from medications: No Attending Groups: Intermittent Review of Systems Acute medical concerns: No Review of Systems Review of Systems Yes all other systems are reviewed and are negative Mental Status Exam Mental Status Exam Narrative: Appearance: Casually dressed, adequate aging Behavior: Calm and cooperative throughout the interview. Eye contact is minimal, and there are no signs of psychomotor agitation or retardation Speech: Normal volume and prosody Thought process: Poverty of content Thought content: No self-harming thoughts Mood: Calm Affect: Blunted SI:denies HI:denies VH/AH:none Delusions: None Insight/judgment: Impaired insight and judgment Memory/cog: Alert, oriented x 3. grossly intact to conversational testing Diagnostics Vital Signs (24Hr): Vital Signs - 24 hr 12/17/24 09:30 12/17/24 09:45 12/17/24 10:00 Temperature Pulse Rate 84 83 85 Respiratory Rate 18 18 18 Blood Pressure 126/69 132/69 131/72 Pulse Oximetry 93 93 94 Oxygen Delivery Method Room Air Room Air Room Air 12/17/24 10:15 12/17/24 10:30 12/17/24 10:45 Temperature 98.3 F Pulse Rate 81 82 80 Respiratory Rate 18 18 18 Blood Pressure 129/71 125/68 128/74 Pulse Oximetry 93 93 93 Oxygen Delivery Method Room Air Room Air Room Air 12/17/24 11:00 12/17/24 11:15 12/17/24 19:51 Temperature 98.5 F 97.1 F Pulse Rate 81 81 84 Respiratory Rate 18 18 18 Blood Pressure 129/71 133/70 128/73 Pulse Oximetry 94 94 98 Oxygen Delivery Method Room Air Room Air Room Air 12/18/24 08:00 Temperature 97.9 F Pulse Rate 88 Respiratory Rate 18 Blood Pressure 136/66 Pulse Oximetry 93 Oxygen Delivery Method Room Air BMI result Body Mass Index 29.0 Labs 12/17/24 15:52 11/19/24 10:54 Labs: Laboratory Results - last 48 hr 12/17/24 15:52 WBC 10.2 RBC 4.21 L Hgb 12.2 L Hct 37.8 L MCV 89.8 MCH 29.0 MCHC 32.3 RDW 13.6 Plt Count 139 L MPV 10.9 Immature Gran % (Auto) 0.8 H Neut % (Auto) 74.9 H Lymph % (Auto) 15.5 L Greenlee % (Auto) 8.5 Eos % (Auto) 0.1 Baso % (Auto) 0.2 Lymph # (Auto) 1.6 Greenlee # (Auto) 0.9 Eos # (Auto) 0.0 Baso # (Auto) 0.0 Abs Immat Gran (auto) 0.08 H Absolute Neuts (auto) 7.6 Absolute Nucleated RBC 0.000 Nucleated RBC % (auto) 0.0 Imaging Radiology Impressions: ITS Impressions KUB X-Ray 10/28/24 16:45 IMPRESSION: Again seen is a large amount of stool throughout the colon and rectum. Electronically signed by: Jose J Gonzalez MD 10/28/2024 05:20 PM EDT RP PICC Line Insertion 12/06/24 14:58 IMPRESSION: Exchange of midline to a 5 fr 55 cm, dual lumen power PICC PLAN: -The catheter may be used immediately. This procedure was performed by Doug Contreras NP, and directly supervised by Aly Carr M.D. Electronically signed by: Aly Carr MD 12/12/2024 11:36 AM EDT RP Workstation: [id number] Medications Medications Current Medications Acetaminophen (Acetaminophen 325 Mg Tablet) 650 mg PO Q6H PRN PRN Reason: Headache/Pain, Scale 1-10 Last Admin: 11/01/24 20:01 Dose: 650 mg Al Hydroxide/Mg Hydroxide (Magnesium Hydrox/Alum Hydrox 30 Ml Oral.Susp) 30 ml PO Q6H PRN PRN Reason: Heartburn/Nausea Aripiprazole (Aripiprazole 10 Mg Tablet) 10 mg PO DAILY@1730 [facility] Last Admin: 12/17/24 16:54 Dose: 10 mg Ascorbic Acid (Ascorbic Acid 500 Mg Tablet) 500 mg PO DAILY [facility] Last Admin: 12/18/24 08:30 Dose: 500 mg Clozapine (Clozapine 100 Mg Tablet) 300 mg PO DAILY@1999 [facility] Last Admin: 12/17/24 20:02 Dose: 300 mg Heparin Sodium (Porcine) 50 (units/ Sodium Chloride 5 ml) 0 units IVFLUSH TID [facility] Last Admin: 12/18/24 08:32 Dose: 50 unit Divalproex Sodium (Divalproex Sodium Sprinkles 125 Mg Cap.) 1,000 mg PO DAILY@1999 [facility] Last Admin: 12/17/24 20:03 Dose: 1,000 mg Ferrous Sulfate (Ferrous Sulfate 324 Mg Tablet.) 324 mg PO DAILY [facility] Last Admin: 12/18/24 08:30 Dose: 324 mg Finasteride (Finasteride 5 Mg Tablet) 5 mg PO DAILY [facility] Last Admin: 12/18/24 08:31 Dose: 5 mg Ketamine HCl 45 mg/ Sodium (Chloride) 45 mls @ 45 mls/hr IV ONCE ONE Stop: 12/19/24 08:29 Lorazepam (Lorazepam 1 Mg Tablet) 1 mg PO TID PRN PRN Reason: agitation/irritability Magnesium Hydroxide (Milk Of Magnesia 30 Ml Oral.Susp) 30 ml PO DAILY PRN PRN Reason: Constipation Magnesium Hydroxide (Milk Of Magnesia 30 Ml Oral.Susp) 5 ml PO BEDTIME [facility] Last Admin: 12/17/24 20:04 Dose: 5 ml Mirtazapine (Mirtazapine 7.5 Mg Tablet) 22.5 mg PO BEDTIME [facility] Last Admin: 12/17/24 20:00 Dose: 22.5 mg Olanzapine (Olanzapine Odt 10 Mg Tab.Rapdis) 5 mg TRANSLINGU BID PRN PRN Reason: agitation Last Admin: 12/01/24 08:14 Dose: 5 mg Polyethylene Glycol (Polyethylene Glycol 3350 17 Gm Powd.Pack) 17 gm PO DAILY [facility] Last Admin: 12/18/24 08:35 Dose: 17 gm Pramipexole Dihydrochloride (Pramipexole Di-Hcl 0.25 Mg Tablet) 0.5 mg PO TID [facility] Last Admin: 12/18/24 08:31 Dose: 0.5 mg Senna/Docusate Sodium (Sennosides/Docusate Sodium Tablet) 1 tab PO BID PRN PRN Reason: no BM for more than 3days Sertraline HCl (Sertraline Hcl 100 Mg Tablet) 100 mg PO DAILY [facility] Last Admin: 12/18/24 08:31 Dose: 100 mg Tamsulosin HCl (Tamsulosin Hcl 0.4 Mg Capsule) 0.8 mg PO BEDTIME [facility] Last Admin: 12/17/24 20:13 Dose: 0.8 mg Thiamine HCl (Thiamine Hcl 100 Mg Tablet) 100 mg PO DAILY [facility] Last Admin: 12/18/24 08:31 Dose: 100 mg Trazodone HCl (Trazodone Hcl 50 Mg Tablet) 50 mg PO BEDTIME PRN PRN Reason: Insomnia Last Admin: 12/10/24 19:40 Dose: 50 mg Triamcinolone Acetonide (Triamcinolone Acet 0.1 % Cream 15 Gm Tube) 1 appl TOPICAL BID [facility]; Protocol Last Admin: 12/18/24 08:35 Dose: Not Given Allergies Allergies Allergy/AdvReac Type Severity Reaction Status Date / Time No Known Allergies (NKA) Allergy Unknown NONE Verified 10/27/24 19:26 Assessment & Plan Assessment & Plan (1) Schizoaffective disorder: Status: Acute Code(s): F25.9 - Schizoaffective disorder, unspecified (2) Catatonia: Status: Acute Code(s): F06.1 - Catatonic disorder due to known physiological condition (3) Essential hypertension: Status: Acute Code(s): I10 - Essential (primary) hypertension (4) Urinary retention with incomplete bladder emptying: Status: Acute Code(s): R33.9 - Retention of urine, unspecified Plan Schizoaffective DO/Depression with decompensation /Catatonia Treatment per psychiatric team Currently receiving Ketamine treatments. Plan is most likely USP ketamine treatments Will need alternative IV access. Patient with poor venous access. Consider PICC line or port. Fungal rash to left buttock Triamcinolone cream BID until clear. Urinary retention/BPH Continue Flomax Monitor for retention. Recent UA negative. Plan Assessment and Plan 59 year-old male with hx of schizoaffective disorder, hypertension, urinary retention, type 2 diabetes, depression recently discharged from on 10/08/2024 after prolonged admission due to treatment resistant catatonia. He had responded to Ketamine treatment, failed ECT with further complications including aspiration. He presented from detention with a change in mental status, he was found wandering in the streets soaked in urine. Depression with decompensation of schizophrenia, catatonia. Status post ketamine treatments, history of ECT with aspiration event Treatment per psych team. Urinary retention/BPH Continue Flomax 0.8mg, Finesteride Dove catheter in place. Follow up urology outpatient Dysphagia Tolerating diet, HOB up. OOB for meals. Mr. 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 He had responded to ketamine treatment, failed ECT with further complications including aspiration. He presents with catatonia again including mutism, waxy flexibility. He had one ketamine treatment since he was discharged from the hospital and only partial dose. He was recommended to do weekly ketamine treatments to prevent catatonia. reports he was taking medications as prescribed. Pending clozapine/norclozapine levels. PLAN 1. Admit to , Sect 12b, 1:1 unsteady gait 2. will check KUB for constipation as pt very poor historian but reports no BM in several days. Will also check bladder scan post void to rule out overflow incontinence due to urinary retention since reports increase incontinence in past few days. Note that he was straight cath while in the ED. 3. restart medications- abilify, sertraline, clozapine, low dose depakote 4. obtain collateral information 5. aftercare panning. 10/29/24 Pt to restart ketamine hcp in effect on 12 b at present 10/30/2024 Patient now on CV by healthcare proxy. Ketamine protocol ordered for the morning the that was previously quite helpful in treating patients catatonia has not responded previously well to lorazepam had only intermittent response to ECT here proxy does not wish ECT treatment and did respond to ketamine Medications continue that previously had been helpful on recent discharge 10/31/2024 Patient given 1st ketamine treatment had respondent previously to a series no change this point. Encourage food and fluids face anxious in appearance mostly mute minimally responsive catatonic symptoms continue. Continue Abilify mirtazapine sertraline Clozaril 150 mg Continue ketamine trial 11/01/2024 Patient remains generally unchanged. Continue clozapine sertraline mirtazapine Abilify 5 mg pramipexole 0.5 t.i.d. part of previous catatonia algorithm. Ketamine scheduled when possible had previously been quite helpful was previously on a 2 week 2 times a week schedule Urinary retention positive urine culture case discussed hospitalist service. Hospitalist consult called. Plan for antibiotics and Dove catheter and then trial without the catheter as possible check electrolytes in the morning may benefit from fluid replacement. Maintain head of the bed elevated supportive nursing care plan to reduce possible congestion 11/02: Continue current regimen and plans 11/03: Continue current plans and regimen Reason for continued inpatient stay 11/05/24 Pt with some imp more alert tolerating ketamine tx needs assist eating walking flat catatonic cont pts catatonia protocal 11/06/2024 Continue plan of care ketamine 11/07/2024 some mild improvement noted continue Monday ketamine treatment 11/07/2024 Patient continues to show improvement from initial catatonia more verbal try to evaluate mood and psychosis. Need clarity why patient was unable to complete outpatient ketamine 11/08/2024 Gradual improvement continues patient able to ambulate independently Dove catheter continues continue ketamine clozapine mirtazapine Abilify 11/09 no change in presentation; continue treatment plan 11/10 Been doing much better today, walking around, talking. He agrees and says he is doing all right.' patient remembers that it was hard for him to talk yesterday but unable to say why. 11/11/2024 Patient has had 2 days of marked improvement unable to explain behavior prior to admission refusing intravenous ketamine what exactly happened home and why he has negative connotations unable to give a clear history regarding this appears to be responding well to continue ketamine increase Depakote 11/12/2024 Will try discontinue Dove catheter and voiding trial. Monitor for cycling change patient appears to be shifting out of catatonia much orozco range of affect future oriented. Ketamine held today scheduled for 821. Continue Abilify clozapine Depakote try and determine lowest schedule for ketamine that maintains patient very little to go by to guide this decision 10/2024 Continue plan of care monitor for martha or confusion ketamine in the morning monitor response to discontinuing Dove 11/14/2024 Patient's some increased anxiety status post ketamine denies psychotic symptoms offered option of lorazepam PRN Will need to evaluate ketamine dosing 11/15/2024 Increase Abilify to 10 mg lower sertraline to 50 mg monitor response question patient overstimulated by antidepressants check Depakote level check ammonia 11/16/24 Continue plan of care check level 11/17/24 Continue to monitor 11/18/2024 Ketamine on hold gradually increase clozapine and Depakote check level 11/19/2024 Patient seems improved orozco affect calmer and more cooperative less irritable. Question adverse reaction to higher dose of sertraline now decreased responding to increased Depakote. Ketamine infusion scheduled for 11/2111/20/2024 Patient continues on prior algorithm for catatonia which includes Abilify clozapine mirtazapine clozapine. He is also on Depakote Depakote level 28.6 ammonia level unremarkable could decrease Depakote monitor response to ketamine see if we can try and discontinue currently 1 time a week monitor for any adverse effect 11/21/24 dep level low can increase ammonia ok can try and see if ketamine could be held 11/22/24 will try amantadine for eps monitor response 11/27/2024 Ketamine in the morning will try half dosing continue amantadine for EPS continue clozapine and Depakote 11/28/2024 Continue plan of care catatonia markedly improved coordinate discharge 11/29/24 Pt improved fx less lable cont cloizapine amantadine new for eps 11/30 Checked vitals and grossly WNL Nursing reports that patient was irritable today. On approach patient did not want to talk and said I am all set.. Room smelled of urine 12/01 Is quite irritable; today patient got kicked out of OT group which is a 1st. On approach patient said that he is all right and acknowledges that he got angry but does not want to talk about it -ordered p.r.n. Ativan which is helped in the past following ketamine -ordered UA 12/02/2024 Ketamine ordered for the morning patient again it or irritable reactive aggressive unwilling to process emotions and thinking amantadine discontinued may be contributing to irritability agitation was prescribed for EPS. Patient not stable for discharge needs frequent cuing for food fluids internally preoccupied again isolated 12 03 24 Patient seems somewhat improved with ketamine treatment at full dosing this morning he is able to ambulate sit in the kitchen needs assist with showering psychomotor retarded but improved from yesterday limited verbally flat. Amantadine discontinued limited options for EPS given patient history of urinary retention avoiding Cogentin amantadine may have caused irritability check Depakote and Clozaril level working to discharge to a [facility] detention when possible 12/04/24 Patient withdrawn and blunted ketamine against scheduled for tomorrow morning has responded previously unclear why he relapsed again. Increase clozapine will need PICC line or port 12/05/2024 Patient seems improved with to intravenous ketamine treatments this week less deep in the catatonia scale blunted with poverty of speech in minimal recheck activity but definitely significant improvement from days ago some increase range of emotion and less delay in speech Clozapine increased Coordination with [facility] 12/06/2024 Patient agreeable placement of PICC line remains with some catatonic symptoms but generally improving needs help and cuing for basic functioning not overly depressed continue clozapine Abilify Depakote part of catatonia protocol scheduled ketamine for next week 12/07, 12/08: no change today 12/09/2024 Continue catatonia protocol ketamine for the morning PICC line placed increase mirtazapine consider restart Namenda clozapine has been increased 12/10/2024 Will continue 2 times a week ketamine protocol for catatonia increase sertraline although lorazepam failed previously consider retrial monitor mood 12/11/2024 Ketamine scheduled for 12/12/2024 sertraline increase increase clozapine gradually patient has responded to 2 times a week ketamine previously with a much orozco range of affect and much improvement in mood 12/12/2024 Continue ketamine clozapine increased to 275 improved with ketamine treatment will continue protocol today's the 1st day of any significant improvement need to maintain improvement 12/13/2024 Continue 2 times a week ketamine for 1 more week increase clozapine to 300 mg 12/14 irritable today, refusing to answer questions by staff; does not want to engage. 12/15 brighter, friendler; says he's good and that medications are fine the way they are 12/16 Patient's ANC has decreased to 3.2 will repeat patient still with restricted affect needs cuing for most behavior does eat and drink Limited range of affect increase mirtazapine to 30 mg scheduled for ketamine 923 PICC line has been placed 12/17/[address] Reinaldo Munoz mood flat with some periods of increased range of affect poverty of content continues some internal preoccupation patient on sertraline 100 mirtazapine 30 Abilify 10 clozapine 300 ketamine b.i.d. trying to see if there is setting with [facility] meeting organized 12/18: Continue current treatment regimen. Patient educated on: therapeutic strategies Reason for continued inpatient stay Substantial Risk for: rapid decompensation Time Spent With Patient Time: Total time managing care of this patient today ____ minutes.
[2024-12-18 20:00] VITALS: BP 141/66; PULSE 66; RESP 13; TEMP 36.3; O2SAT 96
[2024-12-18] MEDS: Milk of Magnesia 30 ML ORAL.SUSP 5 ML PO (20:25)
[2024-12-18] MEDS: Divalproex Sodium Sprinkles 125 MG CAP.DR.SPR 1000 MG PO (20:25)
[2024-12-19] VITALS (10 sets, daily range): BP systolic 125–142; BP diastolic 64–78; PULSE 77–83; RESP 16–20; TEMP 36.3–36.8; O2SAT 94–97; BMI 29.1
[2024-12-19] MEDS: Ferrous Sulfate 324 MG TABLET.DR PO (07:45)
[2024-12-19] MEDS: Triamcinolone Acet 0.1 % Cream 15 GM TUBE 1 APPL TOPICAL (11:02)
--- NOTE | 2024-12-19 14:03 | HO.PSYCHPN ---
Subjective Subjective Date of Service: 12/19/24 Reason For Visit: Catatonia Subjective Notes: Conditional Voluntary Healthcare Proxy: Yes Interim History: Pt had ketamine tx transient agitation thoughts of harm to others then better later in day Medication Compliance: Yes Review of Systems Acute medical concerns: No Diagnostics Vital Signs (24Hr): Vital Signs - 24 hr 12/18/24 20:00 12/19/24 08:00 12/19/24 08:15 Temperature 97.3 F 97.7 F Pulse Rate 66 83 80 Respiratory Rate 13 20 20 Blood Pressure 141/66 H 127/66 126/70 Pulse Oximetry 96 95 94 Oxygen Delivery Method Room Air Room Air Room Air 12/19/24 08:30 12/19/24 08:45 12/19/24 09:00 Temperature Pulse Rate 79 77 78 Respiratory Rate 20 20 20 Blood Pressure 127/73 138/66 127/73 Pulse Oximetry 94 97 94 Oxygen Delivery Method Room Air Room Air Room Air 12/19/24 09:14 12/19/24 09:30 12/19/24 09:44 Temperature 98.3 F Pulse Rate 77 83 81 Respiratory Rate 20 20 20 Blood Pressure 134/74 137/68 142/76 H Pulse Oximetry 94 96 95 Oxygen Delivery Method Room Air Room Air Room Air 12/19/24 09:52 Temperature 98.2 F Pulse Rate 80 Respiratory Rate 20 Blood Pressure 137/78 Pulse Oximetry 96 Oxygen Delivery Method Room Air BMI result Body Mass Index 29.0 Labs 12/17/24 15:52 11/19/24 10:54 Labs: Laboratory Results - last 48 hr 12/17/24 15:52 WBC 10.2 RBC 4.21 L Hgb 12.2 L Hct 37.8 L MCV 89.8 MCH 29.0 MCHC 32.3 RDW 13.6 Plt Count 139 L MPV 10.9 Immature Gran % (Auto) 0.8 H Neut % (Auto) 74.9 H Lymph % (Auto) 15.5 L [place] % (Auto) 8.5 Eos % (Auto) 0.1 Baso % (Auto) 0.2 Lymph # (Auto) 1.6 [place] # (Auto) 0.9 Eos # (Auto) 0.0 Baso # (Auto) 0.0 Abs Immat Gran (auto) 0.08 H Absolute Neuts (auto) 7.6 Absolute Nucleated RBC 0.000 Nucleated RBC % (auto) 0.0 Imaging Radiology Impressions: ITS Impressions KUB X-Ray 10/28/24 16:45 IMPRESSION: Again seen is a large amount of stool throughout the colon and rectum. Electronically signed by: Jose J Gonzalez MD 10/28/2024 05:20 PM EDT RP PICC Line Insertion 12/06/24 14:58 IMPRESSION: Exchange of midline to a 5 fr 55 cm, dual lumen power PICC PLAN: -The catheter may be used immediately. This procedure was performed by Doug Contreras NP, and directly supervised by Aly Carr M.D. Electronically signed by: Aly Carr MD 12/12/2024 11:36 AM EDT RP Workstation: [id number] Medications Medications Current Medications Acetaminophen (Acetaminophen 325 Mg Tablet) 650 mg PO Q6H PRN PRN Reason: Headache/Pain, Scale 1-10 Last Admin: 11/01/24 20:01 Dose: 650 mg Al Hydroxide/Mg Hydroxide (Magnesium Hydrox/Alum Hydrox 30 Ml Oral.Susp) 30 ml PO Q6H PRN PRN Reason: Heartburn/Nausea Aripiprazole (Aripiprazole 10 Mg Tablet) 10 mg PO DAILY@1730 [facility] Last Admin: 12/18/24 16:42 Dose: 10 mg Ascorbic Acid (Ascorbic Acid 500 Mg Tablet) 500 mg PO DAILY [facility] Last Admin: 12/19/24 07:45 Dose: 500 mg Clozapine 300 mg/ Clozapine 25 (mg) 325 mg PO DAILY@1999 [facility] Heparin Sodium (Porcine) 50 (units/ Sodium Chloride 5 ml) 0 units IVFLUSH TID [facility] Last Admin: 12/19/24 10:39 Dose: Not Given Divalproex Sodium (Divalproex Sodium Sprinkles 125 Mg Cap.) 1,000 mg PO DAILY@1999 [facility] Last Admin: 12/18/24 20:25 Dose: 1,000 mg Ferrous Sulfate (Ferrous Sulfate 324 Mg Tablet.Dr) 324 mg PO DAILY [facility] Last Admin: 12/19/24 07:45 Dose: 324 mg Finasteride (Finasteride 5 Mg Tablet) 5 mg PO DAILY [facility] Last Admin: 12/19/24 07:45 Dose: 5 mg Lorazepam (Lorazepam 1 Mg Tablet) 1 mg PO TID PRN PRN Reason: agitation/irritability Lorazepam (Lorazepam 1 Mg Tablet) 1 mg PO TID [facility] Last Admin: 12/19/24 11:01 Dose: 1 mg Magnesium Hydroxide (Milk Of Magnesia 30 Ml Oral.Susp) 30 ml PO DAILY PRN PRN Reason: Constipation Magnesium Hydroxide (Milk Of Magnesia 30 Ml Oral.Susp) 5 ml PO BEDTIME KRISTIN Last Admin: 12/18/24 20:25 Dose: 5 ml Memantine (Memantine Hcl 5 Mg Tablet) 5 mg PO DAILY [facility] Mirtazapine (Mirtazapine 7.5 Mg Tablet) 22.5 mg PO BEDTIME KRISTIN Last Admin: 12/18/24 20:26 Dose: 22.5 mg Olanzapine (Olanzapine Odt 10 Mg Tab.Rapdis) 5 mg TRANSLINGU BID PRN PRN Reason: agitation Last Admin: 12/01/24 08:14 Dose: 5 mg Polyethylene Glycol (Polyethylene Glycol 3350 17 Gm Powd.Pack) 17 gm PO DAILY [facility] Last Admin: 12/19/24 07:44 Dose: 17 gm Pramipexole Dihydrochloride (Pramipexole Di-Hcl 0.25 Mg Tablet) 0.5 mg PO TID [facility] Last Admin: 12/19/24 07:45 Dose: 0.5 mg Senna/Docusate Sodium (Sennosides/Docusate Sodium Tablet) 1 tab PO BID PRN PRN Reason: no BM for more than 3days Sertraline HCl (Sertraline Hcl 100 Mg Tablet) 100 mg PO DAILY [facility] Last Admin: 12/19/24 07:45 Dose: 100 mg Tamsulosin HCl (Tamsulosin Hcl 0.4 Mg Capsule) 0.8 mg PO BEDTIME KRISTIN Last Admin: 12/18/24 20:26 Dose: 0.8 mg Thiamine HCl (Thiamine Hcl 100 Mg Tablet) 100 mg PO DAILY [facility] Last Admin: 12/19/24 07:45 Dose: 100 mg Trazodone HCl (Trazodone Hcl 50 Mg Tablet) 50 mg PO BEDTIME PRN PRN Reason: Insomnia Last Admin: 12/18/24 20:26 Dose: 50 mg Triamcinolone Acetonide (Triamcinolone Acet 0.1 % Cream 15 Gm Tube) 1 appl TOPICAL BID [facility]; Protocol Last Admin: 12/19/24 11:02 Dose: 1 appl Allergies Allergies Allergy/AdvReac Type Severity Reaction Status Date / Time No Known Allergies (NKA) Allergy Unknown NONE Verified 10/27/24 19:26 Assessment & Plan Assessment & Plan (1) Schizoaffective disorder: Status: Acute Code(s): F25.9 - Schizoaffective disorder, unspecified (2) Catatonia: Status: Acute Code(s): F06.1 - Catatonic disorder due to known physiological condition (3) Essential hypertension: Status: Acute Code(s): I10 - Essential (primary) hypertension (4) Urinary retention with incomplete bladder emptying: Status: Acute Code(s): R33.9 - Retention of urine, unspecified Plan Schizoaffective DO/Depression with decompensation /Catatonia Treatment per psychiatric team Currently receiving Ketamine treatments. Plan is most likely exterminator ketamine treatments Will need alternative IV access. Patient with poor venous access. Consider PICC line or port. Fungal rash to left buttock Triamcinolone cream BID until clear. Urinary retention/BPH Continue Flomax Monitor for retention. Recent UA negative. Plan Assessment and Plan 59 year-old male with hx of schizoaffective disorder, hypertension, urinary retention, type 2 diabetes, depression recently discharged from on 10/08/2024 after prolonged admission due to treatment resistant catatonia. He had responded to Ketamine treatment, failed ECT with further complications including aspiration. He presented from care home with a change in mental status, he was found wandering in the streets soaked in urine. Depression with decompensation of schizophrenia, catatonia. Status post ketamine treatments, history of ECT with aspiration event Treatment per psych team. Urinary retention/BPH Continue Flomax 0.8mg, Finesteride Dove catheter in place. Follow up urology outpatient Dysphagia Tolerating diet, HOB up. OOB for meals. Mr. Tenorio is a 59 year-old male with hx of schizoaffective disorder recently discharged from [facility] on 10/08/2024 after prologued admission due to treatment resistant catatonia. He had responded to ketamine treatment, failed ECT with further complications including aspiration. He presents with catatonia again including mutism, waxy flexibility. He had one ketamine treatment since he was discharged from the hospital and only partial dose. He was recommended to do weekly ketamine treatments to prevent catatonia. reports he was taking medications as prescribed. Pending clozapine/norclozapine levels. PLAN 1. Admit to S[facility], Sect 12b, 1:1 unsteady gait 2. will check KUB for constipation as pt very poor historian but reports no BM in several days. Will also check bladder scan post void to rule out overflow incontinence due to urinary retention since GH reports increase incontinence in past few days. Note that he was straight cath while in the ED. 3. restart medications- abilify, sertraline, clozapine, low dose depakote 4. obtain collateral information 5. aftercare panning. 10/29/24 Pt to restart ketamine hcp in effect on 12 b at present 10/30/2024 Patient now on CV by healthcare proxy. Ketamine protocol ordered for the morning the that was previously quite helpful in treating patients catatonia has not responded previously well to lorazepam had only intermittent response to ECT here proxy does not wish ECT treatment and did respond to ketamine Medications continue that previously had been helpful on recent discharge 10/31/2024 Patient given 1st ketamine treatment had respondent previously to a series no change this point. Encourage food and fluids face anxious in appearance mostly mute minimally responsive catatonic symptoms continue. Continue Abilify mirtazapine sertraline Clozaril 150 mg Continue ketamine trial 11/01/2024 Patient remains generally unchanged. Continue clozapine sertraline mirtazapine Abilify 5 mg pramipexole 0.5 t.i.d. part of previous catatonia algorithm. Ketamine scheduled when possible had previously been quite helpful was previously on a 2 week 2 times a week schedule Urinary retention positive urine culture case discussed hospitalist service. Hospitalist consult called. Plan for antibiotics and Dove catheter and then trial without the catheter as possible check electrolytes in the morning may benefit from fluid replacement. Maintain head of the bed elevated supportive nursing care plan to reduce possible congestion 11/02: Continue current regimen and plans 11/03: Continue current plans and regimen Reason for continued inpatient stay 11/05/24 Pt with some imp more alert tolerating ketamine tx needs assist eating walking flat catatonic cont pts catatonia protocal 11/06/2024 Continue plan of care ketamine 11/07/2024 some mild improvement noted continue Monday ketamine treatment 11/07/2024 Patient continues to show improvement from initial catatonia more verbal try to evaluate mood and psychosis. Need clarity why patient was unable to complete outpatient ketamine 11/08/2024 Gradual improvement continues patient able to ambulate independently Dove catheter continues continue ketamine clozapine mirtazapine Abilify 11/09 no change in presentation; continue treatment plan 11/10 Been doing much better today, walking around, talking. He agrees and says he is doing all right.' patient remembers that it was hard for him to talk yesterday but unable to say why. 11/11/2024 Patient has had 2 days of marked improvement unable to explain behavior prior to admission refusing intravenous ketamine what exactly happened home and why he has negative connotations unable to give a clear history regarding this appears to be responding well to continue ketamine increase Depakote 11/12/2024 Will try discontinue Dove catheter and voiding trial. Monitor for cycling change patient appears to be shifting out of catatonia much orozco range of affect future oriented. Ketamine held today scheduled for 821. Continue Abilify clozapine Depakote try and determine lowest schedule for ketamine that maintains patient very little to go by to guide this decision 10/2024 Continue plan of care monitor for martha or confusion ketamine in the morning monitor response to discontinuing Dove 11/14/2024 Patient's some increased anxiety status post ketamine denies psychotic symptoms offered option of lorazepam PRN Will need to evaluate ketamine dosing 11/15/2024 Increase Abilify to 10 mg lower sertraline to 50 mg monitor response question patient overstimulated by antidepressants check Depakote level check ammonia 11/16/24 Continue plan of care check level 11/17/24 Continue to monitor 11/18/2024 Ketamine on hold gradually increase clozapine and Depakote check level 11/19/2024 Patient seems improved orozco affect calmer and more cooperative less irritable. Question adverse reaction to higher dose of sertraline now decreased responding to increased Depakote. Ketamine infusion scheduled for 11/2111/20/2024 Patient continues on prior algorithm for catatonia which includes Abilify clozapine mirtazapine clozapine. He is also on Depakote Depakote level 28.6 ammonia level unremarkable could decrease Depakote monitor response to ketamine see if we can try and discontinue currently 1 time a week monitor for any adverse effect 11/21/24 dep level low can increase ammonia ok can try and see if ketamine could be held 11/22/24 will try amantadine for eps monitor response 11/27/2024 Ketamine in the morning will try half dosing continue amantadine for EPS continue clozapine and Depakote 11/28/2024 Continue plan of care catatonia markedly improved coordinate discharge 11/29/24 Pt improved fx less lable cont cloizapine amantadine new for eps 11/30 Checked vitals and grossly WNL Nursing reports that patient was irritable today. On approach patient did not want to talk and said I am all set.. Room smelled of urine 12/01 Is quite irritable; today patient got kicked out of OT group which is a 1st. On approach patient said that he is all right and acknowledges that he got angry but does not want to talk about it -ordered p.r.n. Ativan which is helped in the past following ketamine -ordered UA 12/02/2024 Ketamine ordered for the morning patient again it or irritable reactive aggressive unwilling to process emotions and thinking amantadine discontinued may be contributing to irritability agitation was prescribed for EPS. Patient not stable for discharge needs frequent cuing for food fluids internally preoccupied again isolated 12 03 24 Patient seems somewhat improved with ketamine treatment at full dosing this morning he is able to ambulate sit in the kitchen needs assist with showering psychomotor retarded but improved from yesterday limited verbally flat. Amantadine discontinued limited options for EPS given patient history of urinary retention avoiding Cogentin amantadine may have caused irritability check Depakote and Clozaril level working to discharge to a [facility] care home when possible 12/04/24 Patient withdrawn and blunted ketamine against scheduled for tomorrow morning has responded previously unclear why he relapsed again. Increase clozapine will need PICC line or port 12/05/2024 Patient seems improved with to intravenous ketamine treatments this week less deep in the catatonia scale blunted with poverty of speech in minimal recheck activity but definitely significant improvement from days ago some increase range of emotion and less delay in speech Clozapine increased Coordination with [facility] 12/06/2024 Patient agreeable placement of PICC line remains with some catatonic symptoms but generally improving needs help and cuing for basic functioning not overly depressed continue clozapine Abilify Depakote part of catatonia protocol scheduled ketamine for next week 12/07, 12/08: no change today 12/09/2024 Continue catatonia protocol ketamine for the morning PICC line placed increase mirtazapine consider restart Namenda clozapine has been increased 12/10/2024 Will continue 2 times a week ketamine protocol for catatonia increase sertraline although lorazepam failed previously consider retrial monitor mood 12/11/2024 Ketamine scheduled for 12/12/2024 sertraline increase increase clozapine gradually patient has responded to 2 times a week ketamine previously with a much orozco range of affect and much improvement in mood 12/12/2024 Continue ketamine clozapine increased to 275 improved with ketamine treatment will continue protocol today's the 1st day of any significant improvement need to maintain improvement 12/13/2024 Continue 2 times a week ketamine for 1 more week increase clozapine to 300 mg 12/14 irritable today, refusing to answer questions by staff; does not want to engage. 12/15 princess, friendler; says he's good and that medications are fine the way they are 12/16 Patient's ANC has decreased to 3.2 will repeat patient still with restricted affect needs cuing for most behavior does eat and drink Limited range of affect increase mirtazapine to 30 mg scheduled for ketamine 923 PICC line has been placed 12/17/[address] Reinaldo Munoz mood flat with some periods of increased range of affect poverty of content continues some internal preoccupation patient on sertraline 100 mirtazapine 30 Abilify 10 clozapine 300 ketamine b.i.d. trying to see if there is setting with [facility] meeting organized 12/18: Continue current treatment regimen. 12/19/24 still poor adls disheveled poor grooming bathing inc range of affect Guardian/Caregiver educated on: diagnosis, medication risk/benefits and other (ketamine) Reason for continued inpatient stay Substantial Risk for: harm to others, inability to function and rapid decompensation Time Spent With Patient Time: Total time managing care of this patient today ____ minutes.
[2024-12-19] MEDS: Heparin Sodium,Porcine Flush 50 UNITS, 0.9 % Sodium Chloride Flush 5 ML IVFLUSH ×2 (15:00→19:55)
--- NOTE | 2024-12-19 15:06 | PC.NURSE ---
PRN Ativan given at 1100 today by another nurse with good effect. OK to hold [address] At[address] 1[address] dose [address] Dr[address] Huerta, patient calm and cooperative. Right arm PICC line flushed without difficulty per hospital policy, dressing dry and intact and no signs or symptoms of complications at the insertion site.
[2024-12-19] MEDS: cloZAPine 300 MG, cloZAPine 25 MG 325 MG PO (19:44)
[2024-12-19] MEDS: Milk of Magnesia 30 ML ORAL.SUSP 5 ML PO (19:54)
[2024-12-19] MEDS: Divalproex Sodium Sprinkles 125 MG CAP.DR.SPR 1000 MG PO (19:57)
[2024-12-20 08:00] VITALS: BP 139/63; PULSE 85; RESP 16; TEMP 36.1; O2SAT 96
[2024-12-20] MEDS: Ferrous Sulfate 324 MG TABLET.DR PO (08:38)
[2024-12-20] MEDS: Heparin Sodium,Porcine Flush 50 UNITS, 0.9 % Sodium Chloride Flush 5 ML IVFLUSH ×3 (08:43→21:06)
[2024-12-20 20:00] VITALS: BP 100/52; PULSE 84; RESP 17; TEMP 36.7; O2SAT 92
[2024-12-20] MEDS: Milk of Magnesia 30 ML ORAL.SUSP 5 ML PO (21:00)
[2024-12-20] MEDS: Divalproex Sodium Sprinkles 125 MG CAP.DR.SPR 1000 MG PO (21:01)
[2024-12-20] MEDS: cloZAPine 300 MG, cloZAPine 25 MG 325 MG PO (21:01)
[2024-12-21 07:55] VITALS: BP 138/71; PULSE 81; RESP 18; TEMP 36.8; O2SAT 97
[2024-12-21] MEDS: Ferrous Sulfate 324 MG TABLET.DR PO (08:15)
[2024-12-21] MEDS: Heparin Sodium,Porcine Flush 50 UNITS, 0.9 % Sodium Chloride Flush 5 ML IVFLUSH ×3 (08:16→21:09)
--- NOTE | 2024-12-21 14:06 | HO.PSYCHPN ---
Subjective Subjective Date of Service: 12/21/24 Reason For Visit: Catatonia Subjective Notes: Conditional Voluntary Healthcare Proxy: No Guardianship: No Medical Problems Affecting Mental Status: No Interim History: 59 yo WM doing remarkablly better- awake, alert- and cooperative, mild movements of hand - tolerating ketamine IV with good effects- psychoed may need to given to father who is not supportive of ketamine - but likely has heard about potential for misuse not potential fo treatment/care- Pt remembers me now from prior meeting and even when I worked M-F back in 2011! on [employer]. Medication Compliance: Yes Side effects from medications: No Attending Groups: Yes Review of Systems Acute medical concerns: No Medical Review of Systems: unchanged Mental Status Exam Mental Status Exam Patient Appearance: Well Grooomed Patient Orientation: Person, Place, Time and Situation Level of Consciousness: Awake Patient Behavior: Appropriate and Cooperative Mood Description: Calm Affect Description: Blunted Patient Cognition Impaired: No Ability to Follow Directions: Good Speech Pattern: Clear Hallucinations: None Delusions: Not Present Thought Process: Intact and Goal Oriented Abnormal Motor Activity Signs and Symptoms: Tic (TD in right hand- movements mild comparied to prior -) Judgement: Fair Diagnostics Vital Signs (24Hr): Vital Signs - 24 hr 12/20/24 20:00 12/21/24 07:55 Temperature 98.1 F 98.2 F Pulse Rate 84 81 Respiratory Rate 17 18 Blood Pressure 100/52 L 138/71 Pulse Oximetry 92 97 Oxygen Delivery Method Room Air Room Air BMI result Body Mass Index 29.1 Labs 12/17/24 15:52 11/19/24 10:54 Imaging Radiology Impressions: ITS Impressions KUB X-Ray 10/28/24 16:45 IMPRESSION: Again seen is a large amount of stool throughout the colon and rectum. Electronically signed by: Jose J Gonzalez MD 10/28/2024 05:20 PM EDT RP PICC Line Insertion 12/06/24 14:58 IMPRESSION: Exchange of midline to a 5 fr 55 cm, dual lumen power PICC PLAN: -The catheter may be used immediately. This procedure was performed by Doug Contreras NP, and directly supervised by Aly Carr M.D. Electronically signed by: Aly Carr MD 12/12/2024 11:36 AM EDT RP Workstation: [id number] Medications Medications Current Medications Acetaminophen (Acetaminophen 325 Mg Tablet) 650 mg PO Q6H PRN PRN Reason: Headache/Pain, Scale 1-10 Last Admin: 11/01/24 20:01 Dose: 650 mg Al Hydroxide/Mg Hydroxide (Magnesium Hydrox/Alum Hydrox 30 Ml Oral.Susp) 30 ml PO Q6H PRN PRN Reason: Heartburn/Nausea Aripiprazole (Aripiprazole 10 Mg Tablet) 10 mg PO DAILY@1730 [facility] Last Admin: 12/20/24 16:35 Dose: 10 mg Ascorbic Acid (Ascorbic Acid 500 Mg Tablet) 500 mg PO DAILY [facility] Last Admin: 12/21/24 08:15 Dose: 500 mg Clozapine 300 mg/ Clozapine 25 (mg) 325 mg PO DAILY@1999 [facility] Last Admin: 12/20/24 21:01 Dose: 325 mg Heparin Sodium (Porcine) 50 (units/ Sodium Chloride 5 ml) 0 units IVFLUSH TID [facility] Last Admin: 12/21/24 08:16 Dose: 5 unit Divalproex Sodium (Divalproex Sodium Sprinkles 125 Mg Cap.) 1,000 mg PO DAILY@1999 [facility] Last Admin: 12/20/24 21:01 Dose: 1,000 mg Ferrous Sulfate (Ferrous Sulfate 324 Mg Tablet.) 324 mg PO DAILY [facility] Last Admin: 12/21/24 08:15 Dose: 324 mg Finasteride (Finasteride 5 Mg Tablet) 5 mg PO DAILY [facility] Last Admin: 12/21/24 08:15 Dose: 5 mg Lorazepam (Lorazepam 1 Mg Tablet) 1 mg PO TID PRN PRN Reason: agitation/irritability Lorazepam (Lorazepam 1 Mg Tablet) 1 mg PO TID [facility] Last Admin: 12/21/24 08:15 Dose: 1 mg Magnesium Hydroxide (Milk Of Magnesia 30 Ml Oral.Susp) 30 ml PO DAILY PRN PRN Reason: Constipation Magnesium Hydroxide (Milk Of Magnesia 30 Ml Oral.Susp) 5 ml PO BEDTIME [facility] Last Admin: 12/20/24 21:00 Dose: 5 ml Memantine (Memantine Hcl 5 Mg Tablet) 5 mg PO DAILY [facility] Last Admin: 12/21/24 08:15 Dose: 5 mg Mirtazapine (Mirtazapine 7.5 Mg Tablet) 22.5 mg PO BEDTIME [facility] Last Admin: 12/20/24 21:04 Dose: 22.5 mg Olanzapine (Olanzapine Odt 10 Mg Tab.Rapdis) 5 mg TRANSLINGU BID PRN PRN Reason: agitation Last Admin: 12/01/24 08:14 Dose: 5 mg Polyethylene Glycol (Polyethylene Glycol 3350 17 Gm Powd.Pack) 17 gm PO DAILY [facility] Last Admin: 12/21/24 08:15 Dose: 17 gm Pramipexole Dihydrochloride (Pramipexole Di-Hcl 0.25 Mg Tablet) 0.5 mg PO TID [facility] Last Admin: 12/21/24 08:15 Dose: 0.5 mg Senna/Docusate Sodium (Sennosides/Docusate Sodium Tablet) 1 tab PO BID PRN PRN Reason: no BM for more than 3days Sertraline HCl (Sertraline Hcl 100 Mg Tablet) 100 mg PO DAILY [facility] Last Admin: 12/21/24 08:15 Dose: 100 mg Tamsulosin HCl (Tamsulosin Hcl 0.4 Mg Capsule) 0.8 mg PO BEDTIME [facility] Last Admin: 12/20/24 21:04 Dose: 0.8 mg Thiamine HCl (Thiamine Hcl 100 Mg Tablet) 100 mg PO DAILY [facility] Last Admin: 12/21/24 08:15 Dose: 100 mg Trazodone HCl (Trazodone Hcl 50 Mg Tablet) 50 mg PO BEDTIME PRN PRN Reason: Insomnia Last Admin: 12/18/24 20:26 Dose: 50 mg Triamcinolone Acetonide (Triamcinolone Acet 0.1 % Cream 15 Gm Tube) 1 appl TOPICAL BID [facility]; Protocol Last Admin: 12/21/24 08:17 Dose: Not Given Allergies Allergies Allergy/AdvReac Type Severity Reaction Status Date / Time No Known Allergies (NKA) Allergy Unknown NONE Verified 10/27/24 19:26 Assessment & Plan Assessment & Plan (1) Schizoaffective disorder: Status: Acute Code(s): F25.9 - Schizoaffective disorder, unspecified (2) Catatonia: Status: Acute Code(s): F06.1 - Catatonic disorder due to known physiological condition (3) Essential hypertension: Status: Acute Code(s): I10 - Essential (primary) hypertension (4) Urinary retention with incomplete bladder emptying: Status: Acute Code(s): R33.9 - Retention of urine, unspecified Plan Schizoaffective DO/Depression with decompensation /Catatonia Treatment per psychiatric team Currently receiving Ketamine treatments. Plan is most likely long term care social worker ketamine treatments Will need alternative IV access. Patient with poor venous access. Consider PICC line or port. Fungal rash to left buttock Triamcinolone cream BID until clear. Urinary retention/BPH Continue Flomax Monitor for retention. Recent UA negative. Plan Assessment and Plan 59 year-old male with hx of schizoaffective disorder, hypertension, urinary retention, type 2 diabetes, depression recently discharged from on 10/08/2024 after prolonged admission due to treatment resistant catatonia. He had responded to Ketamine treatment, failed ECT with further complications including aspiration. He presented from assisted with a change in mental status, he was found wandering in the streets soaked in urine. Depression with decompensation of schizophrenia, catatonia. Status post ketamine treatments, history of ECT with aspiration event Treatment per psych team. Urinary retention/BPH Continue Flomax 0.8mg, Finesteride Dove catheter in place. Follow up urology outpatient Dysphagia Tolerating diet, HOB up. OOB for meals. Mr. Tenorio is a 59 year-old male with hx of schizoaffective disorder recently discharged from [facility] on 10/08/2024 after prologued admission due to treatment resistant catatonia. He had responded to ketamine treatment, failed ECT with further complications including aspiration. He presents with catatonia again including mutism, waxy flexibility. He had one ketamine treatment since he was discharged from the hospital and only partial dose. He was recommended to do weekly ketamine treatments to prevent catatonia. reports he was taking medications as prescribed. Pending clozapine/norclozapine levels. PLAN 1. Admit to S[facility], Sect 12b, 1:1 unsteady gait 2. will check KUB for constipation as pt very poor historian but reports no BM in several days. Will also check bladder scan post void to rule out overflow incontinence due to urinary retention since reports increase incontinence in past few days. Note that he was straight cath while in the ED. 3. restart medications- abilify, sertraline, clozapine, low dose depakote 4. obtain collateral information 5. aftercare panning. 10/29/24 Pt to restart ketamine hcp in effect on 12 b at present 10/30/2024 Patient now on CV by healthcare proxy. Ketamine protocol ordered for the morning the that was previously quite helpful in treating patients catatonia has not responded previously well to lorazepam had only intermittent response to ECT here proxy does not wish ECT treatment and did respond to ketamine Medications continue that previously had been helpful on recent discharge 10/31/2024 Patient given 1st ketamine treatment had respondent previously to a series no change this point. Encourage food and fluids face anxious in appearance mostly mute minimally responsive catatonic symptoms continue. Continue Abilify mirtazapine sertraline Clozaril 150 mg Continue ketamine trial 11/01/2024 Patient remains generally unchanged. Continue clozapine sertraline mirtazapine Abilify 5 mg pramipexole 0.5 t.i.d. part of previous catatonia algorithm. Ketamine scheduled when possible had previously been quite helpful was previously on a 2 week 2 times a week schedule Urinary retention positive urine culture case discussed hospitalist service. Hospitalist consult called. Plan for antibiotics and Dove catheter and then trial without the catheter as possible check electrolytes in the morning may benefit from fluid replacement. Maintain head of the bed elevated supportive nursing care plan to reduce possible congestion 11/02: Continue current regimen and plans 11/03: Continue current plans and regimen Reason for continued inpatient stay 11/05/24 Pt with some imp more alert tolerating ketamine tx needs assist eating walking flat catatonic cont pts catatonia protocal 11/06/2024 Continue plan of care ketamine 11/07/2024 some mild improvement noted continue Monday ketamine treatment 11/07/2024 Patient continues to show improvement from initial catatonia more verbal try to evaluate mood and psychosis. Need clarity why patient was unable to complete outpatient ketamine 11/08/2024 Gradual improvement continues patient able to ambulate independently Dove catheter continues continue ketamine clozapine mirtazapine Abilify 11/09 no change in presentation; continue treatment plan 11/10 Been doing much better today, walking around, talking. He agrees and says he is doing all right.' patient remembers that it was hard for him to talk yesterday but unable to say why. 11/11/2024 Patient has had 2 days of marked improvement unable to explain behavior prior to admission refusing intravenous ketamine what exactly happened home and why he has negative connotations unable to give a clear history regarding this appears to be responding well to continue ketamine increase Depakote 11/12/2024 Will try discontinue Dove catheter and voiding trial. Monitor for cycling change patient appears to be shifting out of catatonia much orozco range of affect future oriented. Ketamine held today scheduled for 821. Continue Abilify clozapine Depakote try and determine lowest schedule for ketamine that maintains patient very little to go by to guide this decision 10/2024 Continue plan of care monitor for martha or confusion ketamine in the morning monitor response to discontinuing Dove 11/14/2024 Patient's some increased anxiety status post ketamine denies psychotic symptoms offered option of lorazepam PRN Will need to evaluate ketamine dosing 11/15/2024 Increase Abilify to 10 mg lower sertraline to 50 mg monitor response question patient overstimulated by antidepressants check Depakote level check ammonia 11/16/24 Continue plan of care check level 11/17/24 Continue to monitor 11/18/2024 Ketamine on hold gradually increase clozapine and Depakote check level 11/19/2024 Patient seems improved orozco affect calmer and more cooperative less irritable. Question adverse reaction to higher dose of sertraline now decreased responding to increased Depakote. Ketamine infusion scheduled for 11/2111/20/2024 Patient continues on prior algorithm for catatonia which includes Abilify clozapine mirtazapine clozapine. He is also on Depakote Depakote level 28.6 ammonia level unremarkable could decrease Depakote monitor response to ketamine see if we can try and discontinue currently 1 time a week monitor for any adverse effect 11/21/24 dep level low can increase ammonia ok can try and see if ketamine could be held 11/22/24 will try amantadine for eps monitor response 11/27/2024 Ketamine in the morning will try half dosing continue amantadine for EPS continue clozapine and Depakote 11/28/2024 Continue plan of care catatonia markedly improved coordinate discharge 11/29/24 Pt improved fx less lable cont cloizapine amantadine new for eps 11/30 Checked vitals and grossly WNL Nursing reports that patient was irritable today. On approach patient did not want to talk and said I am all set.. Room smelled of urine 12/01 Is quite irritable; today patient got kicked out of OT group which is a 1st. On approach patient said that he is all right and acknowledges that he got angry but does not want to talk about it -ordered p.r.n. Ativan which is helped in the past following ketamine -ordered UA 12/02/2024 Ketamine ordered for the morning patient again it or irritable reactive aggressive unwilling to process emotions and thinking amantadine discontinued may be contributing to irritability agitation was prescribed for EPS. Patient not stable for discharge needs frequent cuing for food fluids internally preoccupied again isolated 12 03 24 Patient seems somewhat improved with ketamine treatment at full dosing this morning he is able to ambulate sit in the kitchen needs assist with showering psychomotor retarded but improved from yesterday limited verbally flat. Amantadine discontinued limited options for EPS given patient history of urinary retention avoiding Cogentin amantadine may have caused irritability check Depakote and Clozaril level working to discharge to a [facility] assisted when possible 12/04/24 Patient withdrawn and blunted ketamine against scheduled for tomorrow morning has responded previously unclear why he relapsed again. Increase clozapine will need PICC line or port 12/05/2024 Patient seems improved with to intravenous ketamine treatments this week less deep in the catatonia scale blunted with poverty of speech in minimal recheck activity but definitely significant improvement from days ago some increase range of emotion and less delay in speech Clozapine increased Coordination with [facility] 12/06/2024 Patient agreeable placement of PICC line remains with some catatonic symptoms but generally improving needs help and cuing for basic functioning not overly depressed continue clozapine Mulufkarine Depakote part of catatonia protocol scheduled ketamine for next week 12/07, 12/08: no change today 12/09/2024 Continue catatonia protocol ketamine for the morning PICC line placed increase mirtazapine consider restart Namenda clozapine has been increased 12/10/2024 Will continue 2 times a week ketamine protocol for catatonia increase sertraline although lorazepam failed previously consider retrial monitor mood 12/11/2024 Ketamine scheduled for 12/12/2024 sertraline increase increase clozapine gradually patient has responded to 2 times a week ketamine previously with a much orozco range of affect and much improvement in mood 12/12/2024 Continue ketamine clozapine increased to 275 improved with ketamine treatment will continue protocol today's the 1st day of any significant improvement need to maintain improvement 12/13/2024 Continue 2 times a week ketamine for 1 more week increase clozapine to 300 mg 12/14 irritable today, refusing to answer questions by staff; does not want to engage. 12/15 brighter, friendler; says he's good and that medications are fine the way they are 12/16 Patient's ANC has decreased to 3.2 will repeat patient still with restricted affect needs cuing for most behavior does eat and drink Limited range of affect increase mirtazapine to 30 mg scheduled for ketamine 923 PICC line has been placed 12/17/[address] Reinaldo Munoz mood flat with some periods of increased range of affect poverty of content continues some internal preoccupation patient on sertraline 100 mirtazapine 30 Abilify 10 clozapine 300 ketamine b.i.d. trying to see if there is setting with [facility] meeting organized 12/18: Continue current treatment regimen. 12/21- much improved than I have seen him all year, possibly ever. Patient educated on: medication risk/benefits Guardian/Caregiver educated on: other (may need more information about differentiating therapuetic from street use- ) Reason for continued inpatient stay Substantial Risk for: inability to function and rapid decompensation Time Spent With Patient Time: Total time managing care of this patient today ____ minutes.
[2024-12-21 20:00] VITALS: BP 102/50; PULSE 83; RESP 16; TEMP 36.6; O2SAT 95
[2024-12-21] MEDS: cloZAPine 300 MG, cloZAPine 25 MG 325 MG PO (21:06)
[2024-12-21] MEDS: Divalproex Sodium Sprinkles 125 MG CAP.DR.SPR 1000 MG PO (21:07)
[2024-12-21] MEDS: Milk of Magnesia 30 ML ORAL.SUSP 5 ML PO (21:16)
--- NOTE | 2024-12-22 07:21 | P.PNPSI_ITS ---
Subjective Subjective Date of Service: 12/22/24 Reason For Visit: Catatonia Subjective Notes: Conditional Voluntary Interim History: 59 yo with recurrent catatonia now on iv ketamine 2 x wk with good effect- pt was able to come out of his room when requested this am- has pickline dressing which appears to be irritating to patient- red skin/feeling itchy to patient- Taken care of by nursing- with skin prep and kit on central line dressing kit change to covering - all resolved Medication Compliance: Yes Side effects from medications: No Attending Groups: Yes Review of Systems Acute medical concerns: No Medical Review of Systems: changed Review of Systems: ithcing at dressing area around pic line- needed change in dressing Mental Status Exam Mental Status Exam Patient Appearance: Disheveled Patient Orientation: Person, Place, Time and Situation Level of Consciousness: Awake Patient Behavior: Fatigued (appears fatigued) and Good Eye Contact Mood Description: Calm Affect Description: Blunted Ability to Follow Directions: Good Speech Pattern: Clear and Impoverished Hallucinations: None Delusions: Not Present Thought Process: Intact and Goal Oriented Thought Content: positive for Poverty of Content (?) Judgement: Fair Diagnostics Vital Signs (24Hr): Vital Signs - 24 hr 12/21/24 07:55 12/21/24 20:00 Temperature 98.2 F 97.9 F Pulse Rate 81 83 Respiratory Rate 18 16 Blood Pressure 138/71 102/50 L Pulse Oximetry 97 95 Oxygen Delivery Method Room Air Room Air BMI result Body Mass Index 29.1 Labs 12/17/24 15:52 11/19/24 10:54 Imaging Radiology Impressions: ITS Impressions KUB X-Ray 10/28/24 16:45 IMPRESSION: Again seen is a large amount of stool throughout the colon and rectum. Electronically signed by: Jose J Gonzalez MD 10/28/2024 05:20 PM EDT RP PICC Line Insertion 12/06/24 14:58 IMPRESSION: Exchange of midline to a 5 fr 55 cm, dual lumen power PICC PLAN: -The catheter may be used immediately. This procedure was performed by Doug Contreras NP, and directly supervised by Aly Carr M.D. Electronically signed by: Aly Carr MD 12/12/2024 11:36 AM EDT RP Workstation: [id number] Medications Medications Current Medications Acetaminophen (Acetaminophen 325 Mg Tablet) 650 mg PO Q6H PRN PRN Reason: Headache/Pain, Scale 1-10 Last Admin: 11/01/24 20:01 Dose: 650 mg Al Hydroxide/Mg Hydroxide (Magnesium Hydrox/Alum Hydrox 30 Ml Oral.Susp) 30 ml PO Q6H PRN PRN Reason: Heartburn/Nausea Aripiprazole (Aripiprazole 10 Mg Tablet) 10 mg PO DAILY@1730 [facility] Last Admin: 12/21/24 16:31 Dose: 10 mg Ascorbic Acid (Ascorbic Acid 500 Mg Tablet) 500 mg PO DAILY [facility] Last Admin: 12/21/24 08:15 Dose: 500 mg Clozapine 300 mg/ Clozapine 25 (mg) 325 mg PO DAILY@1999 [facility] Last Admin: 12/21/24 21:06 Dose: 325 mg Heparin Sodium (Porcine) 50 (units/ Sodium Chloride 5 ml) 0 units IVFLUSH TID [facility] Last Admin: 12/21/24 21:09 Dose: 50 unit Divalproex Sodium (Divalproex Sodium Sprinkles 125 Mg Cap.Spr) 1,000 mg PO DAILY@1999 [facility] Last Admin: 12/21/24 21:07 Dose: 1,000 mg Ferrous Sulfate (Ferrous Sulfate 324 Mg Tablet.) 324 mg PO DAILY [facility] Last Admin: 12/21/24 08:15 Dose: 324 mg Finasteride (Finasteride 5 Mg Tablet) 5 mg PO DAILY [facility] Last Admin: 12/21/24 08:15 Dose: 5 mg Lorazepam (Lorazepam 1 Mg Tablet) 1 mg PO TID PRN PRN Reason: agitation/irritability Lorazepam (Lorazepam 1 Mg Tablet) 1 mg PO TID [facility] Last Admin: 12/21/24 21:08 Dose: 1 mg Magnesium Hydroxide (Milk Of Magnesia 30 Ml Oral.Susp) 30 ml PO DAILY PRN PRN Reason: Constipation Magnesium Hydroxide (Milk Of Magnesia 30 Ml Oral.Susp) 5 ml PO BEDTIME [facility] Last Admin: 12/21/24 21:16 Dose: 5 ml Memantine (Memantine Hcl 5 Mg Tablet) 5 mg PO DAILY [facility] Last Admin: 12/21/24 08:15 Dose: 5 mg Mirtazapine (Mirtazapine 7.5 Mg Tablet) 22.5 mg PO BEDTIME [facility] Last Admin: 12/21/24 21:08 Dose: 22.5 mg Olanzapine (Olanzapine Odt 10 Mg Tab.Rapdis) 5 mg TRANSLINGU BID PRN PRN Reason: agitation Last Admin: 12/01/24 08:14 Dose: 5 mg Polyethylene Glycol (Polyethylene Glycol 3350 17 Gm Powd.Pack) 17 gm PO DAILY [facility] Last Admin: 12/21/24 08:15 Dose: 17 gm Pramipexole Dihydrochloride (Pramipexole Di-Hcl 0.25 Mg Tablet) 0.5 mg PO TID [facility] Last Admin: 12/21/24 21:08 Dose: 0.5 mg Senna/Docusate Sodium (Sennosides/Docusate Sodium Tablet) 1 tab PO BID PRN PRN Reason: no BM for more than 3days Sertraline HCl (Sertraline Hcl 100 Mg Tablet) 100 mg PO DAILY [facility] Last Admin: 12/21/24 08:15 Dose: 100 mg Tamsulosin HCl (Tamsulosin Hcl 0.4 Mg Capsule) 0.8 mg PO BEDTIME KRISTIN Last Admin: 12/21/24 21:08 Dose: 0.8 mg Thiamine HCl (Thiamine Hcl 100 Mg Tablet) 100 mg PO DAILY [facility] Last Admin: 12/21/24 08:15 Dose: 100 mg Trazodone HCl (Trazodone Hcl 50 Mg Tablet) 50 mg PO BEDTIME PRN PRN Reason: Insomnia Last Admin: 12/18/24 20:26 Dose: 50 mg Triamcinolone Acetonide (Triamcinolone Acet 0.1 % Cream 15 Gm Tube) 1 appl TOPICAL BID [facility]; Protocol Last Admin: 12/21/24 23:54 Dose: Not Given Allergies Allergies Allergy/AdvReac Type Severity Reaction Status Date / Time No Known Allergies (NKA) Allergy Unknown NONE Verified 10/27/24 19:26 Assessment & Plan Assessment & Plan (1) Schizoaffective disorder: Status: Acute Code(s): F25.9 - Schizoaffective disorder, unspecified (2) Catatonia: Status: Acute Code(s): F06.1 - Catatonic disorder due to known physiological condition (3) Essential hypertension: Status: Acute Code(s): I10 - Essential (primary) hypertension (4) Urinary retention with incomplete bladder emptying: Status: Acute Code(s): R33.9 - Retention of urine, unspecified Plan Schizoaffective DO/Depression with decompensation /Catatonia Treatment per psychiatric team Currently receiving Ketamine treatments. Plan is most likely skilled nursing ketamine treatments Will need alternative IV access. Patient with poor venous access. Consider PICC line or port. Fungal rash to left buttock Triamcinolone cream BID until clear. Urinary retention/BPH Continue Flomax Monitor for retention. Recent UA negative. Plan Assessment and Plan 59 year-old male with hx of schizoaffective disorder, hypertension, urinary retention, type 2 diabetes, depression recently discharged from on 10/08/2024 after prolonged admission due to treatment resistant catatonia. He had responded to Ketamine treatment, failed ECT with further complications including aspiration. [facility] with a change in mental status, he was found wandering in the streets soaked in urine. Depression with decompensation of schizophrenia, catatonia. Status post ketamine treatments, history of ECT with aspiration event Treatment per psych team. Urinary retention/BPH Continue Flomax 0.8mg, Finesteride Dove catheter in place. Follow up urology outpatient Dysphagia Tolerating diet, HOB up. OOB for meals. Mr. 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 He had responded to ketamine treatment, failed ECT with further complications including aspiration. He presents with catatonia again including mutism, waxy flexibility. He had one ketamine treatment since he was discharged from the hospital and only partial dose. He was recommended to do weekly ketamine treatments to prevent catatonia. reports he was taking medications as prescribed. Pending clozapine/norclozapine levels. PLAN 1. Admit to S1, Sect 12b, 1:1 unsteady gait 2. will check KUB for constipation as pt very poor historian but reports no BM in several days. Will also check bladder scan post void to rule out overflow incontinence due to urinary retention since reports increase incontinence in past few days. Note that he was straight cath while in the ED. 3. restart medications- abilify, sertraline, clozapine, low dose depakote 4. obtain collateral information 5. aftercare panning. 10/29/24 Pt to restart ketamine hcp in effect on 12 b at present 10/30/2024 Patient now on CV by healthcare proxy. Ketamine protocol ordered for the morning the that was previously quite helpful in treating patients catatonia has not responded previously well to lorazepam had only intermittent response to ECT here proxy does not wish ECT treatment and did respond to ketamine Medications continue that previously had been helpful on recent discharge 10/31/2024 Patient given 1st ketamine treatment had respondent previously to a series no change this point. Encourage food and fluids face anxious in appearance mostly mute minimally responsive catatonic symptoms continue. Continue Abilify mirtazapine sertraline Clozaril 150 mg Continue ketamine trial 11/01/2024 Patient remains generally unchanged. Continue clozapine sertraline mirtazapine Abilify 5 mg pramipexole 0.5 t.i.d. part of previous catatonia algorithm. Ketamine scheduled when possible had previously been quite helpful was previously on a 2 week 2 times a week schedule Urinary retention positive urine culture case discussed hospitalist service. Hospitalist consult called. Plan for antibiotics and Dove catheter and then trial without the catheter as possible check electrolytes in the morning may benefit from fluid replacement. Maintain head of the bed elevated supportive nursing care plan to reduce possible congestion 11/02: Continue current regimen and plans 11/03: Continue current plans and regimen Reason for continued inpatient stay 11/05/24 Pt with some imp more alert tolerating ketamine tx needs assist eating walking flat catatonic cont pts catatonia protocal 11/06/2024 Continue plan of care ketamine 11/07/2024 some mild improvement noted continue Monday ketamine treatment 11/07/2024 Patient continues to show improvement from initial catatonia more verbal try to evaluate mood and psychosis. Need clarity why patient was unable to complete outpatient ketamine 11/08/2024 Gradual improvement continues patient able to ambulate independently Dove catheter continues continue ketamine clozapine mirtazapine Abilify 11/09 no change in presentation; continue treatment plan 11/10 Been doing much better today, walking around, talking. He agrees and says he is doing all right.' patient remembers that it was hard for him to talk yesterday but unable to say why. 11/11/2024 Patient has had 2 days of marked improvement unable to explain behavior prior to admission refusing intravenous ketamine what exactly happened home and why he has negative connotations unable to give a clear history regarding this appears to be responding well to continue ketamine increase Depakote 11/12/2024 Will try discontinue Dove catheter and voiding trial. Monitor for cycling change patient appears to be shifting out of catatonia much orozco range of affect future oriented. Ketamine held today scheduled for 821. Continue Abilify clozapine Depakote try and determine lowest schedule for ketamine that maintains patient very little to go by to guide this decision 10/2024 Continue plan of care monitor for martha or confusion ketamine in the morning monitor response to discontinuing Dove 11/14/2024 Patient's some increased anxiety status post ketamine denies psychotic symptoms offered option of lorazepam PRN Will need to evaluate ketamine dosing 11/15/2024 Increase Abilify to 10 mg lower sertraline to 50 mg monitor response question patient overstimulated by antidepressants check Depakote level check ammonia 11/16/24 Continue plan of care check level 11/17/24 Continue to monitor 11/18/2024 Ketamine on hold gradually increase clozapine and Depakote check level 11/19/2024 Patient seems improved orozco affect calmer and more cooperative less irritable. Question adverse reaction to higher dose of sertraline now decreased responding to increased Depakote. Ketamine infusion scheduled for 11/2111/20/2024 Patient continues on prior algorithm for catatonia which includes Abilify clozapine mirtazapine clozapine. He is also on Depakote Depakote level 28.6 ammonia level unremarkable could decrease Depakote monitor response to ketamine see if we can try and discontinue currently 1 time a week monitor for any adverse effect 11/21/24 dep level low can increase ammonia ok can try and see if ketamine could be held 11/22/24 will try amantadine for eps monitor response 11/27/2024 Ketamine in the morning will try half dosing continue amantadine for EPS continue clozapine and Depakote 11/28/2024 Continue plan of care catatonia markedly improved coordinate discharge 11/29/24 Pt improved fx less lable cont cloizapine amantadine new for eps 11/30 Checked vitals and grossly WNL Nursing reports that patient was irritable today. On approach patient did not want to talk and said I am all set.. Room smelled of urine 12/01 Is quite irritable; today patient got kicked out of OT group which is a 1st. On approach patient said that he is all right and acknowledges that he got angry but does not want to talk about it -ordered p.r.n. Ativan which is helped in the past following ketamine -ordered UA 12/02/2024 Ketamine ordered for the morning patient again it or irritable reactive aggressive unwilling to process emotions and thinking amantadine discontinued may be contributing to irritability agitation was prescribed for EPS. Patient not stable for discharge needs frequent cuing for food fluids internally preoccupied again isolated 12 03 24 Patient seems somewhat improved with ketamine treatment at full dosing this morning he is able to ambulate sit in the kitchen needs assist with showering psychomotor retarded but improved from yesterday limited verbally flat. Amantadine discontinued limited options for EPS given patient history of urinary retention avoiding Cogentin amantadine may have caused irritability check Depakote and Clozaril level working to discharge to a [facility] when possible 12/04/24 Patient withdrawn and blunted ketamine against scheduled for tomorrow morning has responded previously unclear why he relapsed again. Increase clozapine will need PICC line or port 12/05/2024 Patient seems improved with to intravenous ketamine treatments this week less deep in the catatonia scale blunted with poverty of speech in minimal recheck activity but definitely significant improvement from days ago some increase range of emotion and less delay in speech Clozapine increased Coordination with [facility] 12/06/2024 Patient agreeable placement of PICC line remains with some catatonic symptoms but generally improving needs help and cuing for basic functioning not overly depressed continue clozapine Abilify Depakote part of catatonia protocol scheduled ketamine for next week 12/07, 12/08: no change today 12/09/2024 Continue catatonia protocol ketamine for the morning PICC line placed increase mirtazapine consider restart Namenda clozapine has been increased 12/10/2024 Will continue 2 times a week ketamine protocol for catatonia increase sertraline although lorazepam failed previously consider retrial monitor mood 12/11/2024 Ketamine scheduled for 12/12/2024 sertraline increase increase clozapine gradually patient has responded to 2 times a week ketamine previously with a much orozco range of affect and much improvement in mood 12/12/2024 Continue ketamine clozapine increased to 275 improved with ketamine treatment will continue protocol today's the 1st day of any significant improvement need to maintain improvement 12/13/2024 Continue 2 times a week ketamine for 1 more week increase clozapine to 300 mg 9/20 irritable today, refusing to answer questions by staff; does not want to engage. 12/15 brighter, friendler; says he's good and that medications are fine the way they are 12/16 Patient's ANC has decreased to 3.2 will repeat patient still with restricted affect needs cuing for most behavior does eat and drink Limited range of affect increase mirtazapine to 30 mg scheduled for ketamine 923 PICC line has been placed 12/17/[address] Reinaldo Munoz mood flat with some periods of increased range of affect poverty of content continues some internal preoccupation patient on sertraline 100 mirtazapine 30 Abilify 10 clozapine 300 ketamine b.i.d. trying to see if there is setting with [facility] meeting organized 12/18: Continue current treatment regimen. 12/21- much improved than I have seen him all year, possibly ever.- 12/22 needed dressing change around pic= otherwise doing ok - ketamine pending this week - Reason for continued inpatient stay Substantial Risk for: rapid decompensation Time Spent With Patient Time: Total time managing care of this patient today ____ minutes.
[2024-12-22 09:00] VITALS: BP 131/60; PULSE 74; RESP 14; TEMP 36.2; O2SAT 98
[2024-12-22 09:43] LABS: Neut%MD 71.7 %; WBCANC 6.6 X10*3/uL
[2024-12-22] MEDS: Heparin Sodium,Porcine Flush 50 UNITS, 0.9 % Sodium Chloride Flush 5 ML IVFLUSH ×3 (09:44→20:06)
[2024-12-22] MEDS: Ferrous Sulfate 324 MG TABLET.DR PO (09:50)
--- NOTE | 2024-12-22 12:30 | PC.NURSE ---
Pt PICC site was red, irritated and itchy. Provider notified and advised cold pack, dressing change, and hydrocortisone cream as needed PRN. Pt PICC dressing site changed and secured 12/22/2024.
[2024-12-22] MEDS: Divalproex Sodium Sprinkles 125 MG CAP.DR.SPR 1000 MG PO (19:58)
[2024-12-22 20:00] VITALS: BP 114/58; PULSE 73; RESP 18; TEMP 36.4; O2SAT 96
[2024-12-22] MEDS: cloZAPine 300 MG, cloZAPine 25 MG 325 MG PO (20:00)
[2024-12-22] MEDS: Milk of Magnesia 30 ML ORAL.SUSP 5 ML PO (20:03)
[2024-12-23 08:30] VITALS: BP 139/63; PULSE 85; RESP 16; TEMP 36.8; O2SAT 96
[2024-12-23] MEDS: Ferrous Sulfate 324 MG TABLET.DR PO (08:33)
[2024-12-23] MEDS: Heparin Sodium,Porcine Flush 50 UNITS, 0.9 % Sodium Chloride Flush 5 ML IVFLUSH ×3 (08:34→21:29)
--- NOTE | 2024-12-23 08:36 | P.PNPSI_ITS ---
Subjective Subjective Date of Service: 12/20/24 Reason For Visit: Catatonia Subjective Notes: Conditional Voluntary Healthcare Proxy: Yes Interim History: Pt seen chart reviewed late entry 12/20mtg had been held with chd d/c planning poor grooming withdrawn does come out to eat minimal engagement Mental Status Exam Mental Status Exam Patient Appearance: Disheveled Patient Orientation: Person, Place, Time and Situation Level of Consciousness: Awake Patient Behavior: Fatigued (appears fatigued) and Good Eye Contact Mood Description: Calm Affect Description: Blunted Ability to Follow Directions: Good Speech Pattern: Clear and Impoverished Hallucinations: None Delusions: Not Present Thought Process: Intact and Goal Oriented Thought Content: positive for Poverty of Content (?) Judgement: Fair Diagnostics Vital Signs (24Hr): Vital Signs - 24 hr 12/22/24 09:00 12/22/24 20:00 Temperature 97.2 F 97.5 F Pulse Rate 74 73 Respiratory Rate 14 18 Blood Pressure 131/60 114/58 L Pulse Oximetry 98 96 Oxygen Delivery Method Room Air Room Air BMI result Body Mass Index 29.1 Labs 12/17/24 15:52 11/19/24 10:54 Labs: Laboratory Results - last 48 hr 12/22/24 12/22/24 09:34 09:37 Absolute Neuts (auto) Cancelled 4.7 Imaging Radiology Impressions: ITS Impressions KUB X-Ray 10/28/24 16:45 IMPRESSION: Again seen is a large amount of stool throughout the colon and rectum. Electronically signed by: Jose J Gonzalez MD 10/28/2024 05:20 PM EDT RP PICC Line Insertion 12/06/24 14:58 IMPRESSION: Exchange of midline to a 5 fr 55 cm, dual lumen power PICC PLAN: -The catheter may be used immediately. This procedure was performed by Doug Contreras NP, and directly supervised by Aly Carr M.D. Electronically signed by: Aly Carr MD 12/12/2024 11:36 AM EDT RP Workstation: [id number] Medications Medications Current Medications Acetaminophen (Acetaminophen 325 Mg Tablet) 650 mg PO Q6H PRN PRN Reason: Headache/Pain, Scale 1-10 Last Admin: 11/01/24 20:01 Dose: 650 mg Al Hydroxide/Mg Hydroxide (Magnesium Hydrox/Alum Hydrox 30 Ml Oral.Susp) 30 ml PO Q6H PRN PRN Reason: Heartburn/Nausea Aripiprazole (Aripiprazole 10 Mg Tablet) 10 mg PO DAILY@1730 [facility] Last Admin: 12/22/24 17:01 Dose: 10 mg Ascorbic Acid (Ascorbic Acid 500 Mg Tablet) 500 mg PO DAILY [facility] Last Admin: 12/22/24 09:49 Dose: 500 mg Clozapine 300 mg/ Clozapine 25 (mg) 325 mg PO DAILY@1999 [facility] Last Admin: 12/22/24 20:00 Dose: 325 mg Heparin Sodium (Porcine) 50 (units/ Sodium Chloride 5 ml) 0 units IVFLUSH TID [facility] Last Admin: 12/22/24 20:06 Dose: 50 unit Divalproex Sodium (Divalproex Sodium Sprinkles 125 Mg Cap.) 1,000 mg PO DAILY@1999 [facility] Last Admin: 12/22/24 19:58 Dose: 1,000 mg Ferrous Sulfate (Ferrous Sulfate 324 Mg Tablet.) 324 mg PO DAILY [facility] Last Admin: 12/22/24 09:50 Dose: 324 mg Finasteride (Finasteride 5 Mg Tablet) 5 mg PO DAILY [facility] Last Admin: 12/22/24 09:51 Dose: 5 mg Hydrocortisone (Hydrocortisone 1 % Ointment 28.35 Gm Tube) 1 appl TOPICAL BID PRN; Protocol PRN Reason: skin irritation Lorazepam (Lorazepam 1 Mg Tablet) 1 mg PO TID PRN PRN Reason: agitation/irritability Lorazepam (Lorazepam 1 Mg Tablet) 1 mg PO TID [facility] Last Admin: 12/22/24 20:00 Dose: 1 mg Magnesium Hydroxide (Milk Of Magnesia 30 Ml Oral.Susp) 30 ml PO DAILY PRN PRN Reason: Constipation Magnesium Hydroxide (Milk Of Magnesia 30 Ml Oral.Susp) 5 ml PO BEDTIME [facility] Last Admin: 12/22/24 20:03 Dose: 5 ml Memantine (Memantine Hcl 5 Mg Tablet) 5 mg PO DAILY [facility] Last Admin: 12/22/24 09:49 Dose: 5 mg Mirtazapine (Mirtazapine 7.5 Mg Tablet) 22.5 mg PO BEDTIME [facility] Last Admin: 12/22/24 20:01 Dose: 22.5 mg Olanzapine (Olanzapine Odt 10 Mg Tab.Rapdis) 5 mg TRANSLINGU BID PRN PRN Reason: agitation Last Admin: 12/01/24 08:14 Dose: 5 mg Polyethylene Glycol (Polyethylene Glycol 3350 17 Gm Powd.Pack) 17 gm PO DAILY [facility] Last Admin: 12/22/24 09:51 Dose: 17 gm Pramipexole Dihydrochloride (Pramipexole Di-Hcl 0.25 Mg Tablet) 0.5 mg PO TID [facility] Last Admin: 12/22/24 20:02 Dose: 0.5 mg Senna/Docusate Sodium (Sennosides/Docusate Sodium Tablet) 1 tab PO BID PRN PRN Reason: no BM for more than 3days Sertraline HCl (Sertraline Hcl 100 Mg Tablet) 100 mg PO DAILY [facility] Last Admin: 12/22/24 09:51 Dose: 100 mg Tamsulosin HCl (Tamsulosin Hcl 0.4 Mg Capsule) 0.8 mg PO BEDTIME [facility] Last Admin: 12/22/24 19:59 Dose: 0.8 mg Thiamine HCl (Thiamine Hcl 100 Mg Tablet) 100 mg PO DAILY [facility] Last Admin: 12/22/24 09:51 Dose: 100 mg Trazodone HCl (Trazodone Hcl 50 Mg Tablet) 50 mg PO BEDTIME PRN PRN Reason: Insomnia Last Admin: 12/18/24 20:26 Dose: 50 mg Triamcinolone Acetonide (Triamcinolone Acet 0.1 % Cream 15 Gm Tube) 1 appl TOPICAL BID [facility]; Protocol Last Admin: 12/22/24 22:19 Dose: Not Given Allergies Allergies Allergy/AdvReac Type Severity Reaction Status Date / Time No Known Allergies (NKA) Allergy Unknown NONE Verified 10/27/24 19:26 Assessment & Plan Assessment & Plan (1) Schizoaffective disorder: Status: Acute Code(s): F25.9 - Schizoaffective disorder, unspecified (2) Catatonia: Status: Acute Code(s): F06.1 - Catatonic disorder due to known physiological condition (3) Essential hypertension: Status: Acute Code(s): I10 - Essential (primary) hypertension (4) Urinary retention with incomplete bladder emptying: Status: Acute Code(s): R33.9 - Retention of urine, unspecified Plan Schizoaffective DO/Depression with decompensation /Catatonia Treatment per psychiatric team Currently receiving Ketamine treatments. Plan is most likely superintendent terminal ketamine treatments Will need alternative IV access. Patient with poor venous access. Consider PICC line or port. Fungal rash to left buttock Triamcinolone cream BID until clear. Urinary retention/BPH Continue Flomax Monitor for retention. Recent UA negative. Plan Assessment and Plan 59 year-old male with hx of schizoaffective disorder, hypertension, urinary retention, type 2 diabetes, depression recently discharged from on 10/08/2024 after prolonged admission due to treatment resistant catatonia. He had responded to Ketamine treatment, failed ECT with further complications including aspiration. He presented from [facility] with a change in mental status, he was found wandering in the streets soaked in urine. Depression with decompensation of schizophrenia, catatonia. Status post ketamine treatments, history of ECT with aspiration event Treatment per psych team. Urinary retention/BPH Continue Flomax 0.8mg, Finesteride Dove catheter in place. Follow up urology outpatient Dysphagia Tolerating diet, HOB up. OOB for meals. Mr. 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 He had responded to ketamine treatment, failed ECT with further complications including aspiration. He presents with catatonia again including mutism, waxy flexibility. He had one ketamine treatment since he was discharged from the hospital and only partial dose. He was recommended to do weekly ketamine treatments to prevent catatonia. reports he was taking medications as prescribed. Pending clozapine/norclozapine levels. PLAN 1. Admit to S1, Sect 12b, 1:1 unsteady gait 2. will check KUB for constipation as pt very poor historian but reports no BM in several days. Will also check bladder scan post void to rule out overflow incontinence due to urinary retention since reports increase incontinence in past few days. Note that he was straight cath while in the ED. 3. restart medications- abilify, sertraline, clozapine, low dose depakote 4. obtain collateral information 5. aftercare panning. 10/29/24 Pt to restart ketamine hcp in effect on 12 b at present 10/30/2024 Patient now on CV by healthcare proxy. Ketamine protocol ordered for the morning the that was previously quite helpful in treating patients catatonia has not responded previously well to lorazepam had only intermittent response to ECT here proxy does not wish ECT treatment and did respond to ketamine Medications continue that previously had been helpful on recent discharge 10/31/2024 Patient given 1st ketamine treatment had respondent previously to a series no change this point. Encourage food and fluids face anxious in appearance mostly mute minimally responsive catatonic symptoms continue. Continue Abilify mirtazapine sertraline Clozaril 150 mg Continue ketamine trial 11/01/2024 Patient remains generally unchanged. Continue clozapine sertraline mirtazapine Abilify 5 mg pramipexole 0.5 t.i.d. part of previous catatonia algorithm. Ketamine scheduled when possible had previously been quite helpful was previously on a 2 week 2 times a week schedule Urinary retention positive urine culture case discussed hospitalist service. Hospitalist consult called. Plan for antibiotics and Dove catheter and then trial without the catheter as possible check electrolytes in the morning may benefit from fluid replacement. Maintain head of the bed elevated supportive nursing care plan to reduce possible congestion 11/02: Continue current regimen and plans 11/03: Continue current plans and regimen Reason for continued inpatient stay 11/05/24 Pt with some imp more alert tolerating ketamine tx needs assist eating walking flat catatonic cont pts catatonia protocal 11/06/2024 Continue plan of care ketamine 11/07/2024 some mild improvement noted continue Monday ketamine treatment 11/07/2024 Patient continues to show improvement from initial catatonia more verbal try to evaluate mood and psychosis. Need clarity why patient was unable to complete outpatient ketamine 11/08/2024 Gradual improvement continues patient able to ambulate independently Dove catheter continues continue ketamine clozapine mirtazapine Abilify 11/09 no change in presentation; continue treatment plan 11/10 Been doing much better today, walking around, talking. He agrees and says he is doing all right.' patient remembers that it was hard for him to talk yesterday but unable to say why. 11/11/2024 Patient has had 2 days of marked improvement unable to explain behavior prior to admission refusing intravenous ketamine what exactly happened home and why he has negative connotations unable to give a clear history regarding this appears to be responding well to continue ketamine increase Depakote 11/12/2024 Will try discontinue Dove catheter and voiding trial. Monitor for cycling change patient appears to be shifting out of catatonia much orozco range of affect future oriented. Ketamine held today scheduled for 821. Continue Abilify clozapine Depakote try and determine lowest schedule for ketamine that maintains patient very little to go by to guide this decision 10/2024 Continue plan of care monitor for martha or confusion ketamine in the morning monitor response to discontinuing Dove 11/14/2024 Patient's some increased anxiety status post ketamine denies psychotic symptoms offered option of lorazepam PRN Will need to evaluate ketamine dosing 11/15/2024 Increase Abilify to 10 mg lower sertraline to 50 mg monitor response question patient overstimulated by antidepressants check Depakote level check ammonia 11/16/24 Continue plan of care check level 11/17/24 Continue to monitor 11/18/2024 Ketamine on hold gradually increase clozapine and Depakote check level 11/19/2024 Patient seems improved orozco affect calmer and more cooperative less irritable. Question adverse reaction to higher dose of sertraline now decreased responding to increased Depakote. Ketamine infusion scheduled for 11/2111/20/2024 Patient continues on prior algorithm for catatonia which includes Abilify clozapine mirtazapine clozapine. He is also on Depakote Depakote level 28.6 ammonia level unremarkable could decrease Depakote monitor response to ketamine see if we can try and discontinue currently 1 time a week monitor for any adverse effect 11/21/24 dep level low can increase ammonia ok can try and see if ketamine could be held 11/22/24 will try amantadine for eps monitor response 11/27/2024 Ketamine in the morning will try half dosing continue amantadine for EPS continue clozapine and Depakote 11/28/2024 Continue plan of care catatonia markedly improved coordinate discharge 11/29/24 Pt improved fx less lable cont cloizapine amantadine new for eps 11/30 Checked vitals and grossly WNL Nursing reports that patient was irritable today. On approach patient did not want to talk and said I am all set.. Room smelled of urine 12/01 Is quite irritable; today patient got kicked out of OT group which is a 1st. On approach patient said that he is all right and acknowledges that he got angry but does not want to talk about it -ordered p.r.n. Ativan which is helped in the past following ketamine -ordered UA 12/02/2024 Ketamine ordered for the morning patient again it or irritable reactive aggressive unwilling to process emotions and thinking amantadine discontinued may be contributing to irritability agitation was prescribed for EPS. Patient not stable for discharge needs frequent cuing for food fluids internally preoccupied again isolated 12 03 24 Patient seems somewhat improved with ketamine treatment at full dosing this morning he is able to ambulate sit in the kitchen needs assist with showering psychomotor retarded but improved from yesterday limited verbally flat. Amantadine discontinued limited options for EPS given patient history of urinary retention avoiding Cogentin amantadine may have caused irritability check Depakote and Clozaril level working to discharge to a [facility] when possible 12/04/24 Patient withdrawn and blunted ketamine against scheduled for tomorrow morning has responded previously unclear why he relapsed again. Increase clozapine will need PICC line or port 12/05/2024 Patient seems improved with to intravenous ketamine treatments this week less deep in the catatonia scale blunted with poverty of speech in minimal recheck activity but definitely significant improvement from days ago some increase range of emotion and less delay in speech Clozapine increased Coordination with CHD 12/06/2024 Patient agreeable placement of PICC line remains with some catatonic symptoms but generally improving needs help and cuing for basic functioning not overly depressed continue clozapine Abilify Depakote part of catatonia protocol scheduled ketamine for next week 12/07, 12/08: no change today 12/09/2024 Continue catatonia protocol ketamine for the morning PICC line placed increase mirtazapine consider restart Namenda clozapine has been increased 12/10/2024 Will continue 2 times a week ketamine protocol for catatonia increase sertraline although lorazepam failed previously consider retrial monitor mood 12/11/2024 Ketamine scheduled for 12/12/2024 sertraline increase increase clozapine gradually patient has responded to 2 times a week ketamine previously with a much orozco range of affect and much improvement in mood 12/12/2024 Continue ketamine clozapine increased to 275 improved with ketamine treatment will continue protocol today's the 1st day of any significant improvement need to maintain improvement 12/13/2024 Continue 2 times a week ketamine for 1 more week increase clozapine to 300 mg 12/14 irritable today, refusing to answer questions by staff; does not want to engage. 12/15 brighter, friendler; says he's good and that medications are fine the way they are 12/16 Patient's ANC has decreased to 3.2 will repeat patient still with restricted affect needs cuing for most behavior does eat and drink Limited range of affect increase mirtazapine to 30 mg scheduled for ketamine 923 PICC line has been placed 12/17/[address] Reinaldo Munoz mood flat with some periods of increased range of affect poverty of content continues some internal preoccupation patient on sertraline 100 mirtazapine 30 Abilify 10 clozapine 300 ketamine b.i.d. trying to see if there is setting with CHD meeting organized 12/18: Continue current treatment regimen. 12/19/24 still poor adls disheveled poor grooming bathing inc range of affect 12/20/24 coordinate with chd d/c planning very limited range affect clear partial response to ketamine Guardian/Caregiver educated on: other (d/c planning ketamine ) Reason for continued inpatient stay Substantial Risk for: inability to function, rapid decompensation and med/psych decompensation Time Spent With Patient Time: Total time managing care of this patient today ____ minutes.
--- NOTE | 2024-12-23 17:12 | HO.PSYCHPN ---
Subjective Subjective Date of Service: 12/23/24 Reason For Visit: Catatonia Subjective Notes: Conditional Voluntary Healthcare Proxy: Yes Interim History: Pt seen in f/u mood somewhat improved some improved grooming scheduled for ketamine needs cueing for grooming eating Medication Compliance: Yes Mental Status Exam Mental Status Exam Patient Appearance: Disheveled Patient Orientation: Person, Place, Time and Situation Level of Consciousness: Awake Patient Behavior: Fatigued (appears fatigued) and Good Eye Contact Mood Description: Calm Affect Description: Blunted Ability to Follow Directions: Good Speech Pattern: Clear and Impoverished Hallucinations: None Delusions: Not Present Thought Process: Intact and Goal Oriented Thought Content: positive for Poverty of Content (?) Judgement: Fair Diagnostics Vital Signs (24Hr): Vital Signs - 24 hr 12/22/24 20:00 12/23/24 08:30 Temperature 97.5 F 98.2 F Pulse Rate 73 85 Respiratory Rate 18 16 Blood Pressure 114/58 L 139/63 Pulse Oximetry 96 96 Oxygen Delivery Method Room Air Room Air BMI result Body Mass Index 29.1 Labs 12/17/24 15:52 11/19/24 10:54 Labs: Laboratory Results - last 48 hr 12/22/24 12/22/24 09:34 09:37 Absolute Neuts (auto) Cancelled 4.7 Imaging Radiology Impressions: ITS Impressions KUB X-Ray 10/28/24 16:45 IMPRESSION: Again seen is a large amount of stool throughout the colon and rectum. Electronically signed by: Jose J Gonzalez MD 10/28/2024 05:20 PM EDT RP PICC Line Insertion 12/06/24 14:58 IMPRESSION: Exchange of midline to a 5 fr 55 cm, dual lumen power PICC PLAN: -The catheter may be used immediately. This procedure was performed by Doug Contreras NP, and directly supervised by Aly Carr M.D. Electronically signed by: Aly Carr MD 12/12/2024 11:36 AM EDT RP Workstation: [id number] Medications Medications Current Medications Acetaminophen (Acetaminophen 325 Mg Tablet) 650 mg PO Q6H PRN PRN Reason: Headache/Pain, Scale 1-10 Last Admin: 11/01/24 20:01 Dose: 650 mg Al Hydroxide/Mg Hydroxide (Magnesium Hydrox/Alum Hydrox 30 Ml Oral.Susp) 30 ml PO Q6H PRN PRN Reason: Heartburn/Nausea Aripiprazole (Aripiprazole 10 Mg Tablet) 10 mg PO DAILY@1730 [facility] Last Admin: 12/23/24 17:10 Dose: 10 mg Ascorbic Acid (Ascorbic Acid 500 Mg Tablet) 500 mg PO DAILY [facility] Last Admin: 12/23/24 08:33 Dose: 500 mg Clozapine 300 mg/ Clozapine 25 (mg) 325 mg PO DAILY@1999 [facility] Last Admin: 12/22/24 20:00 Dose: 325 mg Heparin Sodium (Porcine) 50 (units/ Sodium Chloride 5 ml) 0 units IVFLUSH TID [facility] Last Admin: 12/23/24 14:40 Dose: 6 unit Divalproex Sodium (Divalproex Sodium Sprinkles 125 Mg Cap.Spr) 1,000 mg PO DAILY@1999 [facility] Last Admin: 12/22/24 19:58 Dose: 1,000 mg Ferrous Sulfate (Ferrous Sulfate 324 Mg Tablet.) 324 mg PO DAILY [facility] Last Admin: 12/23/24 08:33 Dose: 324 mg Finasteride (Finasteride 5 Mg Tablet) 5 mg PO DAILY [facility] Last Admin: 12/23/24 08:33 Dose: 5 mg Hydrocortisone (Hydrocortisone 1 % Ointment 28.35 Gm Tube) 1 appl TOPICAL BID PRN; Protocol PRN Reason: skin irritation Lorazepam (Lorazepam 1 Mg Tablet) 1 mg PO TID PRN PRN Reason: agitation/irritability Lorazepam (Lorazepam 1 Mg Tablet) 1 mg PO TID [facility] Last Admin: 12/23/24 14:40 Dose: 1 mg Magnesium Hydroxide (Milk Of Magnesia 30 Ml Oral.Susp) 30 ml PO DAILY PRN PRN Reason: Constipation Magnesium Hydroxide (Milk Of Magnesia 30 Ml Oral.Susp) 5 ml PO BEDTIME [facility] Last Admin: 12/22/24 20:03 Dose: 5 ml Memantine (Memantine Hcl 5 Mg Tablet) 5 mg PO DAILY [facility] Last Admin: 12/23/24 08:34 Dose: 5 mg Mirtazapine (Mirtazapine 7.5 Mg Tablet) 22.5 mg PO BEDTIME [facility] Last Admin: 12/22/24 20:01 Dose: 22.5 mg Olanzapine (Olanzapine Odt 10 Mg Tab.Rapdis) 5 mg TRANSLINGU BID PRN PRN Reason: agitation Last Admin: 12/01/24 08:14 Dose: 5 mg Polyethylene Glycol (Polyethylene Glycol 3350 17 Gm Powd.Pack) 17 gm PO DAILY [facility] Last Admin: 12/23/24 08:34 Dose: 17 gm Pramipexole Dihydrochloride (Pramipexole Di-Hcl 0.25 Mg Tablet) 0.5 mg PO TID [facility] Last Admin: 12/23/24 14:40 Dose: 0.5 mg Senna/Docusate Sodium (Sennosides/Docusate Sodium Tablet) 1 tab PO BID PRN PRN Reason: no BM for more than 3days Sertraline HCl (Sertraline Hcl 100 Mg Tablet) 100 mg PO DAILY [facility] Last Admin: 12/23/24 08:34 Dose: 100 mg Tamsulosin HCl (Tamsulosin Hcl 0.4 Mg Capsule) 0.8 mg PO BEDTIME [facility] Last Admin: 12/22/24 19:59 Dose: 0.8 mg Thiamine HCl (Thiamine Hcl 100 Mg Tablet) 100 mg PO DAILY [facility] Last Admin: 12/23/24 08:33 Dose: 100 mg Trazodone HCl (Trazodone Hcl 50 Mg Tablet) 50 mg PO BEDTIME PRN PRN Reason: Insomnia Last Admin: 12/18/24 20:26 Dose: 50 mg Triamcinolone Acetonide (Triamcinolone Acet 0.1 % Cream 15 Gm Tube) 1 appl TOPICAL BID [facility]; Protocol Last Admin: 12/23/24 08:38 Dose: Not Given Allergies Allergies Allergy/AdvReac Type Severity Reaction Status Date / Time No Known Allergies (NKA) Allergy Unknown NONE Verified 10/27/24 19:26 Assessment & Plan Assessment & Plan (1) Schizoaffective disorder: Status: Acute Code(s): F25.9 - Schizoaffective disorder, unspecified (2) Catatonia: Status: Acute Code(s): F06.1 - Catatonic disorder due to known physiological condition (3) Essential hypertension: Status: Acute Code(s): I10 - Essential (primary) hypertension (4) Urinary retention with incomplete bladder emptying: Status: Acute Code(s): R33.9 - Retention of urine, unspecified Plan Schizoaffective DO/Depression with decompensation /Catatonia Treatment per psychiatric team Currently receiving Ketamine treatments. Plan is most likely terminal clerk ketamine treatments Will need alternative IV access. Patient with poor venous access. Consider PICC line or port. Fungal rash to left buttock Triamcinolone cream BID until clear. Urinary retention/BPH Continue Flomax Monitor for retention. Recent UA negative. Plan Assessment and Plan 59 year-old male with hx of schizoaffective disorder, hypertension, urinary retention, type 2 diabetes, depression recently discharged from on 10/08/2024 after prolonged admission due to treatment resistant catatonia. He had responded to Ketamine treatment, failed ECT with further complications including aspiration. He presented from [facility] with a change in mental status, he was found wandering in the streets soaked in urine. Depression with decompensation of schizophrenia, catatonia. Status post ketamine treatments, history of ECT with aspiration event Treatment per psych team. Urinary retention/BPH Continue Flomax 0.8mg, Finesteride Dove catheter in place. Follow up urology outpatient Dysphagia Tolerating diet, HOB up. OOB for meals. Mr. Tenorio is a 59 year-old male with hx of schizoaffective disorder recently discharged from [facility] on 10/08/2024 after prologued admission due to treatment resistant catatonia. He had responded to ketamine treatment, failed ECT with further complications including aspiration. He presents with catatonia again including mutism, waxy flexibility. He had one ketamine treatment since he was discharged from the hospital and only partial dose. He was recommended to do weekly ketamine treatments to prevent catatonia. reports he was taking medications as prescribed. Pending clozapine/norclozapine levels. PLAN 1. Admit to S[facility], Sect 12b, 1:1 unsteady gait 2. will check KUB for constipation as pt very poor historian but reports no BM in several days. Will also check bladder scan post void to rule out overflow incontinence due to urinary retention since reports increase incontinence in past few days. Note that he was straight cath while in the ED. 3. restart medications- abilify, sertraline, clozapine, low dose depakote 4. obtain collateral information 5. aftercare panning. 10/29/24 Pt to restart ketamine hcp in effect on 12 b at present 10/30/2024 Patient now on CV by healthcare proxy. Ketamine protocol ordered for the morning the that was previously quite helpful in treating patients catatonia has not responded previously well to lorazepam had only intermittent response to ECT here proxy does not wish ECT treatment and did respond to ketamine Medications continue that previously had been helpful on recent discharge 10/31/2024 Patient given 1st ketamine treatment had respondent previously to a series no change this point. Encourage food and fluids face anxious in appearance mostly mute minimally responsive catatonic symptoms continue. Continue Abilify mirtazapine sertraline Clozaril 150 mg Continue ketamine trial 11/01/2024 Patient remains generally unchanged. Continue clozapine sertraline mirtazapine Abilify 5 mg pramipexole 0.5 t.i.d. part of previous catatonia algorithm. Ketamine scheduled when possible had previously been quite helpful was previously on a 2 week 2 times a week schedule Urinary retention positive urine culture case discussed hospitalist service. Hospitalist consult called. Plan for antibiotics and Dove catheter and then trial without the catheter as possible check electrolytes in the morning may benefit from fluid replacement. Maintain head of the bed elevated supportive nursing care plan to reduce possible congestion 11/02: Continue current regimen and plans 11/03: Continue current plans and regimen Reason for continued inpatient stay 11/05/24 Pt with some imp more alert tolerating ketamine tx needs assist eating walking flat catatonic cont pts catatonia protocal 11/06/2024 Continue plan of care ketamine 11/07/2024 some mild improvement noted continue Monday ketamine treatment 11/07/2024 Patient continues to show improvement from initial catatonia more verbal try to evaluate mood and psychosis. Need clarity why patient was unable to complete outpatient ketamine 11/08/2024 Gradual improvement continues patient able to ambulate independently Dove catheter continues continue ketamine clozapine mirtazapine Abilify 11/09 no change in presentation; continue treatment plan 11/10 Been doing much better today, walking around, talking. He agrees and says he is doing all right.' patient remembers that it was hard for him to talk yesterday but unable to say why. 11/11/2024 Patient has had 2 days of marked improvement unable to explain behavior prior to admission refusing intravenous ketamine what exactly happened home and why he has negative connotations unable to give a clear history regarding this appears to be responding well to continue ketamine increase Depakote 11/12/2024 Will try discontinue Dove catheter and voiding trial. Monitor for cycling change patient appears to be shifting out of catatonia much orozco range of affect future oriented. Ketamine held today scheduled for 821. Continue Abilify clozapine Depakote try and determine lowest schedule for ketamine that maintains patient very little to go by to guide this decision 10/2024 Continue plan of care monitor for martha or confusion ketamine in the morning monitor response to discontinuing Dove 11/14/2024 Patient's some increased anxiety status post ketamine denies psychotic symptoms offered option of lorazepam PRN Will need to evaluate ketamine dosing 11/15/2024 Increase Abilify to 10 mg lower sertraline to 50 mg monitor response question patient overstimulated by antidepressants check Depakote level check ammonia 11/16/24 Continue plan of care check level 11/17/24 Continue to monitor 11/18/2024 Ketamine on hold gradually increase clozapine and Depakote check level 11/19/2024 Patient seems improved orozco affect calmer and more cooperative less irritable. Question adverse reaction to higher dose of sertraline now decreased responding to increased Depakote. Ketamine infusion scheduled for 11/2111/20/2024 Patient continues on prior algorithm for catatonia which includes Abilify clozapine mirtazapine clozapine. He is also on Depakote Depakote level 28.6 ammonia level unremarkable could decrease Depakote monitor response to ketamine see if we can try and discontinue currently 1 time a week monitor for any adverse effect 11/21/24 dep level low can increase ammonia ok can try and see if ketamine could be held 11/22/24 will try amantadine for eps monitor response 11/27/2024 Ketamine in the morning will try half dosing continue amantadine for EPS continue clozapine and Depakote 11/28/2024 Continue plan of care catatonia markedly improved coordinate discharge 11/29/24 Pt improved fx less lable cont cloizapine amantadine new for eps 11/30 Checked vitals and grossly WNL Nursing reports that patient was irritable today. On approach patient did not want to talk and said I am all set.. Room smelled of urine 12/01 Is quite irritable; today patient got kicked out of OT group which is a 1st. On approach patient said that he is all right and acknowledges that he got angry but does not want to talk about it -ordered p.r.n. Ativan which is helped in the past following ketamine -ordered UA 12/02/2024 Ketamine ordered for the morning patient again it or irritable reactive aggressive unwilling to process emotions and thinking amantadine discontinued may be contributing to irritability agitation was prescribed for EPS. Patient not stable for discharge needs frequent cuing for food fluids internally preoccupied again isolated 12 03 24 Patient seems somewhat improved with ketamine treatment at full dosing this morning he is able to ambulate sit in the kitchen needs assist with showering psychomotor retarded but improved from yesterday limited verbally flat. Amantadine discontinued limited options for EPS given patient history of urinary retention avoiding Cogentin amantadine may have caused irritability check Depakote and Clozaril level working to discharge to a [facility] when possible 12/04/24 Patient withdrawn and blunted ketamine against scheduled for tomorrow morning has responded previously unclear why he relapsed again. Increase clozapine will need PICC line or port 12/05/2024 Patient seems improved with to intravenous ketamine treatments this week less deep in the catatonia scale blunted with poverty of speech in minimal recheck activity but definitely significant improvement from days ago some increase range of emotion and less delay in speech Clozapine increased Coordination with [facility] 12/06/2024 Patient agreeable placement of PICC line remains with some catatonic symptoms but generally improving needs help and cuing for basic functioning not overly depressed continue clozapine Jillian Burgerte part of catatonia protocol scheduled ketamine for next week 12/07, 12/08: no change today 12/09/2024 Continue catatonia protocol ketamine for the morning PICC line placed increase mirtazapine consider restart Namenda clozapine has been increased 12/10/2024 Will continue 2 times a week ketamine protocol for catatonia increase sertraline although lorazepam failed previously consider retrial monitor mood 12/11/2024 Ketamine scheduled for 12/12/2024 sertraline increase increase clozapine gradually patient has responded to 2 times a week ketamine previously with a much orozco range of affect and much improvement in mood 12/12/2024 Continue ketamine clozapine increased to 275 improved with ketamine treatment will continue protocol today's the 1st day of any significant improvement need to maintain improvement 12/13/2024 Continue 2 times a week ketamine for 1 more week increase clozapine to 300 mg 12/14 irritable today, refusing to answer questions by staff; does not want to engage. 12/15 princess, friendler; says he's good and that medications are fine the way they are 12/16 Patient's ANC has decreased to 3.2 will repeat patient still with restricted affect needs cuing for most behavior does eat and drink Limited range of affect increase mirtazapine to 30 mg scheduled for ketamine 923 PICC line has been placed 12/17/[address] Reinaldo Munoz mood flat with some periods of increased range of affect poverty of content continues some internal preoccupation patient on sertraline 100 mirtazapine 30 Abilify 10 clozapine 300 ketamine b.i.d. trying to see if there is setting with [facility] meeting organized 12/18: Continue current treatment regimen. 12/19/24 still poor adls disheveled poor grooming bathing inc range of affect 12/20/24 coordinate with chd d/c planning very limited range affect clear partial response to ketamine 12/23/24 Pt has been somewhat improved started on namnda to help boast Informed Consent: further education needed Reason for continued inpatient stay Substantial Risk for: inability to function and rapid decompensation Time Spent With Patient Time: Total time managing care of this patient today _30___ minutes.
[2024-12-23 20:00] VITALS: BP 130/61; PULSE 82; RESP 16; TEMP 36.7; O2SAT 94
[2024-12-23] MEDS: Divalproex Sodium Sprinkles 125 MG CAP.DR.SPR 1000 MG PO (21:07)
[2024-12-23] MEDS: cloZAPine 300 MG, cloZAPine 25 MG 325 MG PO (21:09)
[2024-12-23] MEDS: Milk of Magnesia 30 ML ORAL.SUSP 5 ML PO (21:10)
[2024-12-24] VITALS (10 sets, daily range): BP systolic 114–134; BP diastolic 59–67; PULSE 78–88; RESP 15–22; TEMP 36.6–37; O2SAT 93–97
[2024-12-24] MEDS: Heparin Sodium,Porcine Flush 50 UNITS, 0.9 % Sodium Chloride Flush 5 ML IVFLUSH ×3 (08:17→21:06)
[2024-12-24] MEDS: Ferrous Sulfate 324 MG TABLET.DR PO (08:18)
--- NOTE | 2024-12-24 14:29 | PC.NURSE ---
patient arrived in pacu bed 13 resting comfortably slight smile with staff, light conversation, requesting television show, following start of drip resting peacefully, easily arousable.
--- NOTE | 2024-12-24 15:50 | PC.NURSE ---
patient post drip resting peacefully, easily arousable.
[2024-12-24] MEDS: Divalproex Sodium Sprinkles 125 MG CAP.DR.SPR 1000 MG PO (21:01)
[2024-12-24] MEDS: cloZAPine 300 MG, cloZAPine 25 MG 325 MG PO (21:02)
[2024-12-24] MEDS: Milk of Magnesia 30 ML ORAL.SUSP 5 ML PO (21:13)
--- NOTE | 2024-12-24 22:57 | P.PNPSI_ITS ---
Subjective Subjective Date of Service: 12/24/24 Reason For Visit: Catatonia Subjective Notes: Conditional Voluntary Healthcare Proxy: Yes Interim History: Patient received ketamine treatment ANC has been stable patient on Clozaril some period of irritability later improved mood Medication Compliance: Yes Mental Status Exam Mental Status Exam Narrative: Appearance: Casually dressed, adequate hygiene Behavior: Calm and cooperative throughout the interview. Guarded. Eye contact is appropriate some psychomotor slowing Speech: Normal volume and prosody Thought process: Slowed thinking poverty of content Thought content: Future oriented significant poverty of content able to ask about discharge planning Mood: Okay Affect: Constricted SI:denies HI:denies VH/AH:none Delusions: No gross delusional material suspiciousness Insight/judgment: Fair insight and judgment Memory/cog: Alert, oriented to person, place, and time. grossly intact to conversational testing Diagnostics Vital Signs (24Hr): Vital Signs - 24 hr 12/24/24 08:00 12/24/24 14:15 12/24/24 14:30 Temperature 98.2 F 98 F Pulse Rate 88 83 83 Respiratory Rate 15 22 H Blood Pressure 125/59 L 116/65 119/67 Pulse Oximetry 97 94 94 Oxygen Delivery Method Room Air Room Air Room Air 12/24/24 14:45 12/24/24 15:00 12/24/24 15:15 Temperature Pulse Rate 83 81 78 Respiratory Rate 22 H 20 19 Blood Pressure 125/67 129/65 127/64 Pulse Oximetry 94 93 95 Oxygen Delivery Method Room Air Room Air Room Air 12/24/24 15:30 12/24/24 15:45 12/24/24 15:56 Temperature 98 F Pulse Rate 81 79 83 Respiratory Rate 15 16 16 Blood Pressure 124/67 119/62 114/66 Pulse Oximetry 94 93 93 Oxygen Delivery Method Room Air Room Air Room Air 12/24/24 20:00 Temperature 98.6 F Pulse Rate 78 Respiratory Rate 16 Blood Pressure 134/67 Pulse Oximetry 95 Oxygen Delivery Method Room Air BMI result Body Mass Index 29.1 Labs 12/17/24 15:52 11/19/24 10:54 Imaging Radiology Impressions: ITS Impressions KUB X-Ray 10/28/24 16:45 IMPRESSION: Again seen is a large amount of stool throughout the colon and rectum. Electronically signed by: Jose J Gonzalez MD 10/28/2024 05:20 PM EDT RP PICC Line Insertion 12/06/24 14:58 IMPRESSION: Exchange of midline to a 5 fr 55 cm, dual lumen power PICC PLAN: -The catheter may be used immediately. This procedure was performed by Doug Contreras NP, and directly supervised by Aly Carr M.D. Electronically signed by: Aly Carr MD 12/12/2024 11:36 AM EDT RP Workstation: [id number] Medications Medications Current Medications Acetaminophen (Acetaminophen 325 Mg Tablet) 650 mg PO Q6H PRN PRN Reason: Headache/Pain, Scale 1-10 Last Admin: 11/01/24 20:01 Dose: 650 mg Al Hydroxide/Mg Hydroxide (Magnesium Hydrox/Alum Hydrox 30 Ml Oral.Susp) 30 ml PO Q6H PRN PRN Reason: Heartburn/Nausea Aripiprazole (Aripiprazole 10 Mg Tablet) 10 mg PO DAILY@1730 [facility] Last Admin: 12/24/24 16:17 Dose: 10 mg Ascorbic Acid (Ascorbic Acid 500 Mg Tablet) 500 mg PO DAILY [facility] Last Admin: 12/24/24 08:18 Dose: 500 mg Clozapine 300 mg/ Clozapine 25 (mg) 325 mg PO DAILY@1999 [facility] Last Admin: 12/24/24 21:02 Dose: 325 mg Heparin Sodium (Porcine) 50 (units/ Sodium Chloride 5 ml) 0 units IVFLUSH TID [facility] Last Admin: 12/24/24 21:06 Dose: 5 unit Divalproex Sodium (Divalproex Sodium Sprinkles 125 Mg Cap.Spr) 1,000 mg PO DAILY@1999 [facility] Last Admin: 12/24/24 21:01 Dose: 1,000 mg Ferrous Sulfate (Ferrous Sulfate 324 Mg Tablet.Dr) 324 mg PO DAILY [facility] Last Admin: 12/24/24 08:18 Dose: 324 mg Finasteride (Finasteride 5 Mg Tablet) 5 mg PO DAILY [facility] Last Admin: 12/24/24 08:19 Dose: 5 mg Hydrocortisone (Hydrocortisone 1 % Ointment 28.35 Gm Tube) 1 appl TOPICAL BID PRN; Protocol PRN Reason: skin irritation Ketamine HCl 45 mg/ Sodium (Chloride) 45 mls @ 45 mls/hr IV ONCE ONE Stop: 12/26/24 08:29 Magnesium Hydroxide (Milk Of Magnesia 30 Ml Oral.Susp) 30 ml PO DAILY PRN PRN Reason: Constipation Magnesium Hydroxide (Milk Of Magnesia 30 Ml Oral.Susp) 5 ml PO BEDTIME [facility] Last Admin: 12/24/24 21:13 Dose: 5 ml Memantine (Memantine Hcl 5 Mg Tablet) 5 mg PO DAILY [facility] Last Admin: 12/24/24 08:18 Dose: 5 mg Mirtazapine (Mirtazapine 7.5 Mg Tablet) 22.5 mg PO BEDTIME [facility] Last Admin: 12/24/24 21:03 Dose: 22.5 mg Olanzapine (Olanzapine Odt 10 Mg Tab.Rapdis) 5 mg TRANSLINGU BID PRN PRN Reason: agitation Last Admin: 12/01/24 08:14 Dose: 5 mg Polyethylene Glycol (Polyethylene Glycol 3350 17 Gm Powd.Pack) 17 gm PO DAILY [facility] Last Admin: 12/24/24 08:20 Dose: 17 gm Pramipexole Dihydrochloride (Pramipexole Di-Hcl 0.25 Mg Tablet) 0.5 mg PO TID [facility] Last Admin: 12/24/24 21:04 Dose: 0.5 mg Senna/Docusate Sodium (Sennosides/Docusate Sodium Tablet) 1 tab PO BID PRN PRN Reason: no BM for more than 3days Sertraline HCl (Sertraline Hcl 100 Mg Tablet) 100 mg PO DAILY [facility] Last Admin: 12/24/24 08:18 Dose: 100 mg Tamsulosin HCl (Tamsulosin Hcl 0.4 Mg Capsule) 0.8 mg PO BEDTIME [facility] Last Admin: 12/24/24 21:03 Dose: 0.8 mg Thiamine HCl (Thiamine Hcl 100 Mg Tablet) 100 mg PO DAILY [facility] Last Admin: 12/24/24 08:19 Dose: 100 mg Trazodone HCl (Trazodone Hcl 50 Mg Tablet) 50 mg PO BEDTIME PRN PRN Reason: Insomnia Last Admin: 12/18/24 20:26 Dose: 50 mg Triamcinolone Acetonide (Triamcinolone Acet 0.1 % Cream 15 Gm Tube) 1 appl TOPICAL BID [facility]; Protocol Last Admin: 12/24/24 21:11 Dose: Not Given Allergies Allergies Allergy/AdvReac Type Severity Reaction Status Date / Time No Known Allergies (NKA) Allergy Unknown NONE Verified 10/27/24 19:26 Assessment & Plan Assessment & Plan (1) Schizoaffective disorder: Status: Acute Code(s): F25.9 - Schizoaffective disorder, unspecified (2) Catatonia: Status: Acute Code(s): F06.1 - Catatonic disorder due to known physiological condition (3) Essential hypertension: Status: Acute Code(s): I10 - Essential (primary) hypertension (4) Urinary retention with incomplete bladder emptying: Status: Acute Code(s): R33.9 - Retention of urine, unspecified Plan Schizoaffective DO/Depression with decompensation /Catatonia Treatment per psychiatric team Currently receiving Ketamine treatments. Plan is most likely nursing home ketamine treatments Will need alternative IV access. Patient with poor venous access. Consider PICC line or port. Fungal rash to left buttock Triamcinolone cream BID until clear. Urinary retention/BPH Continue Flomax Monitor for retention. Recent UA negative. Plan Assessment and Plan 59 year-old male with hx of schizoaffective disorder, hypertension, urinary retention, type 2 diabetes, depression recently discharged from on 10/08/2024 after prolonged admission due to treatment resistant catatonia. He had responded to Ketamine treatment, failed ECT with further complications including aspiration. [facility] with a change in mental status, he was found wandering in the streets soaked in urine. Depression with decompensation of schizophrenia, catatonia. Status post ketamine treatments, history of ECT with aspiration event Treatment per psych team. Urinary retention/BPH Continue Flomax 0.8mg, Finesteride Dove catheter in place. Follow up urology outpatient Dysphagia Tolerating diet, HOB up. OOB for meals. Mr. 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 He had responded to ketamine treatment, failed ECT with further complications including aspiration. He presents with catatonia again including mutism, waxy flexibility. He had one ketamine treatment since he was discharged from the hospital and only partial dose. He was recommended to do weekly ketamine treatments to prevent catatonia. reports he was taking medications as prescribed. Pending clozapine/norclozapine levels. PLAN 1. Admit to S1, Sect 12b, 1:1 unsteady gait 2. will check KUB for constipation as pt very poor historian but reports no BM in several days. Will also check bladder scan post void to rule out overflow incontinence due to urinary retention since reports increase incontinence in past few days. Note that he was straight cath while in the ED. 3. restart medications- abilify, sertraline, clozapine, low dose depakote 4. obtain collateral information 5. aftercare panning. 10/29/24 Pt to restart ketamine hcp in effect on 12 b at present 10/30/2024 Patient now on CV by healthcare proxy. Ketamine protocol ordered for the morning the that was previously quite helpful in treating patients catatonia has not responded previously well to lorazepam had only intermittent response to ECT here proxy does not wish ECT treatment and did respond to ketamine Medications continue that previously had been helpful on recent discharge 10/31/2024 Patient given 1st ketamine treatment had respondent previously to a series no change this point. Encourage food and fluids face anxious in appearance mostly mute minimally responsive catatonic symptoms continue. Continue Abilify mirtazapine sertraline Clozaril 150 mg Continue ketamine trial 11/01/2024 Patient remains generally unchanged. Continue clozapine sertraline mirtazapine Abilify 5 mg pramipexole 0.5 t.i.d. part of previous catatonia algorithm. Ketamine scheduled when possible had previously been quite helpful was previously on a 2 week 2 times a week schedule Urinary retention positive urine culture case discussed hospitalist service. Hospitalist consult called. Plan for antibiotics and Dove catheter and then trial without the catheter as possible check electrolytes in the morning may benefit from fluid replacement. Maintain head of the bed elevated supportive nursing care plan to reduce possible congestion 11/02: Continue current regimen and plans 11/03: Continue current plans and regimen Reason for continued inpatient stay 11/05/24 Pt with some imp more alert tolerating ketamine tx needs assist eating walking flat catatonic cont pts catatonia protocal 11/06/2024 Continue plan of care ketamine 11/07/2024 some mild improvement noted continue Monday ketamine treatment 11/07/2024 Patient continues to show improvement from initial catatonia more verbal try to evaluate mood and psychosis. Need clarity why patient was unable to complete outpatient ketamine 11/08/2024 Gradual improvement continues patient able to ambulate independently Dove catheter continues continue ketamine clozapine mirtazapine Abilify 11/09 no change in presentation; continue treatment plan 11/10 Been doing much better today, walking around, talking. He agrees and says he is doing all right.' patient remembers that it was hard for him to talk yesterday but unable to say why. 11/11/2024 Patient has had 2 days of marked improvement unable to explain behavior prior to admission refusing intravenous ketamine what exactly happened home and why he has negative connotations unable to give a clear history regarding this appears to be responding well to continue ketamine increase Depakote 11/12/2024 Will try discontinue Dove catheter and voiding trial. Monitor for cycling change patient appears to be shifting out of catatonia much orozco range of affect future oriented. Ketamine held today scheduled for 821. Continue Abilify clozapine Depakote try and determine lowest schedule for ketamine that maintains patient very little to go by to guide this decision 10/2024 Continue plan of care monitor for martha or confusion ketamine in the morning monitor response to discontinuing Dove 11/14/2024 Patient's some increased anxiety status post ketamine denies psychotic symptoms offered option of lorazepam PRN Will need to evaluate ketamine dosing 11/15/2024 Increase Abilify to 10 mg lower sertraline to 50 mg monitor response question patient overstimulated by antidepressants check Depakote level check ammonia 11/16/24 Continue plan of care check level 11/17/24 Continue to monitor 11/18/2024 Ketamine on hold gradually increase clozapine and Depakote check level 11/19/2024 Patient seems improved orozco affect calmer and more cooperative less irritable. Question adverse reaction to higher dose of sertraline now decreased responding to increased Depakote. Ketamine infusion scheduled for 11/2111/20/2024 Patient continues on prior algorithm for catatonia which includes Abilify clozapine mirtazapine clozapine. He is also on Depakote Depakote level 28.6 ammonia level unremarkable could decrease Depakote monitor response to ketamine see if we can try and discontinue currently 1 time a week monitor for any adverse effect 11/21/24 dep level low can increase ammonia ok can try and see if ketamine could be held 11/22/24 will try amantadine for eps monitor response 11/27/2024 Ketamine in the morning will try half dosing continue amantadine for EPS continue clozapine and Depakote 11/28/2024 Continue plan of care catatonia markedly improved coordinate discharge 11/29/24 Pt improved fx less lable cont cloizapine amantadine new for eps 11/30 Checked vitals and grossly WNL Nursing reports that patient was irritable today. On approach patient did not want to talk and said I am all set.. Room smelled of urine 12/01 Is quite irritable; today patient got kicked out of OT group which is a 1st. On approach patient said that he is all right and acknowledges that he got angry but does not want to talk about it -ordered p.r.n. Ativan which is helped in the past following ketamine -ordered UA 12/02/2024 Ketamine ordered for the morning patient again it or irritable reactive aggressive unwilling to process emotions and thinking amantadine discontinued may be contributing to irritability agitation was prescribed for EPS. Patient not stable for discharge needs frequent cuing for food fluids internally preoccupied again isolated 12 03 24 Patient seems somewhat improved with ketamine treatment at full dosing this morning he is able to ambulate sit in the kitchen needs assist with showering psychomotor retarded but improved from yesterday limited verbally flat. Amantadine discontinued limited options for EPS given patient history of urinary retention avoiding Cogentin amantadine may have caused irritability check Depakote and Clozaril level working to discharge to a [facility] penitentiary when possible 12/04/24 Patient withdrawn and blunted ketamine against scheduled for tomorrow morning has responded previously unclear why he relapsed again. Increase clozapine will need PICC line or port 12/05/2024 Patient seems improved with to intravenous ketamine treatments this week less deep in the catatonia scale blunted with poverty of speech in minimal recheck activity but definitely significant improvement from days ago some increase range of emotion and less delay in speech Clozapine increased Coordination with [facility] 12/06/2024 Patient agreeable placement of PICC line remains with some catatonic symptoms but generally improving needs help and cuing for basic functioning not overly depressed continue clozapine Abilify Depakote part of catatonia protocol scheduled ketamine for next week 12/07, 12/08: no change today 12/09/2024 Continue catatonia protocol ketamine for the morning PICC line placed increase mirtazapine consider restart Namenda clozapine has been increased 12/10/2024 Will continue 2 times a week ketamine protocol for catatonia increase sertraline although lorazepam failed previously consider retrial monitor mood 12/11/2024 Ketamine scheduled for 12/12/2024 sertraline increase increase clozapine gradually patient has responded to 2 times a week ketamine previously with a much orozco range of affect and much improvement in mood 12/12/2024 Continue ketamine clozapine increased to 275 improved with ketamine treatment will continue protocol today's the 1st day of any significant improvement need to maintain improvement 12/13/2024 Continue 2 times a week ketamine for 1 more week increase clozapine to 300 mg 12/14 irritable today, refusing to answer questions by staff; does not want to engage. 12/15 brighter, friendler; says he's good and that medications are fine the way they are 12/16 Patient's ANC has decreased to 3.2 will repeat patient still with restricted affect needs cuing for most behavior does eat and drink Limited range of affect increase mirtazapine to 30 mg scheduled for ketamine 923 PICC line has been placed 12/17/[address] Reinaldo Munoz mood flat with some periods of increased range of affect poverty of content continues some internal preoccupation patient on sertraline 100 mirtazapine 30 Abilify 10 clozapine 300 ketamine b.i.d. trying to see if there is setting with [facility] meeting organized 12/18: Continue current treatment regimen. 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
[2024-12-25 09:17] VITALS: BP 128/68; PULSE 76; RESP 18; TEMP 36.1; O2SAT 98
[2024-12-25] MEDS: Ferrous Sulfate 324 MG TABLET.DR PO (09:19)
[2024-12-25] MEDS: Heparin Sodium,Porcine Flush 50 UNITS, 0.9 % Sodium Chloride Flush 5 ML IVFLUSH ×3 (09:20→21:07)
--- NOTE | 2024-12-25 17:44 | HO.PSYCHPN ---
Subjective Subjective Date of Service: 12/25/24 Reason For Visit: Catatonia Subjective Notes: Conditional Voluntary Healthcare Proxy: Yes Interim History: Patient tolerated ketamine some increase interaction often mostly isolative. Eating and drinking okay Mental Status Exam Mental Status Exam Narrative: Appearance: Casually dressed, adequate hygiene Behavior: Calm and cooperative throughout the interview. Guarded. Eye contact is appropriate, and there are no signs of psychomotor agitation or retardation Speech: Normal volume and prosody Thought process: Logical and goal-directed Thought content: Future oriented no self-harming thoughts Mood: Good Affect: Constricted SI:denies HI:denies VH/AH:none Delusions: None Insight/judgment: Fair insight and judgment Memory/cog: Alert, oriented to person, place, and time. grossly intact to conversational testing Diagnostics Vital Signs (24Hr): Vital Signs - 24 hr 12/24/24 20:00 12/25/24 09:17 Temperature 98.6 F 96.9 F Pulse Rate 78 76 Respiratory Rate 16 18 Blood Pressure 134/67 128/68 Pulse Oximetry 95 98 Oxygen Delivery Method Room Air Room Air BMI result Body Mass Index 29.1 Labs 12/17/24 15:52 11/19/24 10:54 Imaging Radiology Impressions: ITS Impressions KUB X-Ray 10/28/24 16:45 IMPRESSION: Again seen is a large amount of stool throughout the colon and rectum. Electronically signed by: Jose J Gonzalez MD 10/28/2024 05:20 PM EDT RP PICC Line Insertion 12/06/24 14:58 IMPRESSION: Exchange of midline to a 5 fr 55 cm, dual lumen power PICC PLAN: -The catheter may be used immediately. This procedure was performed by Doug Contreras NP, and directly supervised by Aly Carr M.D. Electronically signed by: Aly Carr MD 12/12/2024 11:36 AM EDT RP Workstation: [id number] Medications Medications Current Medications Acetaminophen (Acetaminophen 325 Mg Tablet) 650 mg PO Q6H PRN PRN Reason: Headache/Pain, Scale 1-10 Last Admin: 11/01/24 20:01 Dose: 650 mg Al Hydroxide/Mg Hydroxide (Magnesium Hydrox/Alum Hydrox 30 Ml Oral.Susp) 30 ml PO Q6H PRN PRN Reason: Heartburn/Nausea Aripiprazole (Aripiprazole 10 Mg Tablet) 10 mg PO DAILY@1730 [facility] Last Admin: 12/25/24 17:04 Dose: 10 mg Ascorbic Acid (Ascorbic Acid 500 Mg Tablet) 500 mg PO DAILY [facility] Last Admin: 12/25/24 09:18 Dose: 500 mg Clozapine 300 mg/ Clozapine 25 (mg) 325 mg PO DAILY@1999 [facility] Last Admin: 12/24/24 21:02 Dose: 325 mg Heparin Sodium (Porcine) 50 (units/ Sodium Chloride 5 ml) 0 units IVFLUSH TID [facility] Last Admin: 12/25/24 14:37 Dose: 50 unit Divalproex Sodium (Divalproex Sodium Sprinkles 125 Mg Cap.) 1,000 mg PO DAILY@1999 [facility] Last Admin: 12/24/24 21:01 Dose: 1,000 mg Ferrous Sulfate (Ferrous Sulfate 324 Mg Tablet.) 324 mg PO DAILY [facility] Last Admin: 12/25/24 09:19 Dose: 324 mg Finasteride (Finasteride 5 Mg Tablet) 5 mg PO DAILY [facility] Last Admin: 12/25/24 09:20 Dose: 5 mg Hydrocortisone (Hydrocortisone 1 % Ointment 28.35 Gm Tube) 1 appl TOPICAL BID PRN; Protocol PRN Reason: skin irritation Ketamine HCl 45 mg/ Sodium (Chloride) 45 mls @ 45 mls/hr IV ONCE ONE Stop: 12/26/24 08:29 Magnesium Hydroxide (Milk Of Magnesia 30 Ml Oral.Susp) 30 ml PO DAILY PRN PRN Reason: Constipation Magnesium Hydroxide (Milk Of Magnesia 30 Ml Oral.Susp) 5 ml PO BEDTIME [facility] Last Admin: 12/24/24 21:13 Dose: 5 ml Memantine (Memantine Hcl 5 Mg Tablet) 5 mg PO DAILY [facility] Last Admin: 12/25/24 09:18 Dose: 5 mg Mirtazapine (Mirtazapine 7.5 Mg Tablet) 22.5 mg PO BEDTIME [facility] Last Admin: 12/24/24 21:03 Dose: 22.5 mg Olanzapine (Olanzapine Odt 10 Mg Tab.Rapdis) 5 mg TRANSLINGU BID PRN PRN Reason: agitation Last Admin: 12/01/24 08:14 Dose: 5 mg Polyethylene Glycol (Polyethylene Glycol 3350 17 Gm Powd.Pack) 17 gm PO DAILY [facility] Last Admin: 12/25/24 09:19 Dose: 17 gm Pramipexole Dihydrochloride (Pramipexole Di-Hcl 0.25 Mg Tablet) 0.5 mg PO TID [facility] Last Admin: 12/25/24 14:37 Dose: 0.5 mg Senna/Docusate Sodium (Sennosides/Docusate Sodium Tablet) 1 tab PO BID PRN PRN Reason: no BM for more than 3days Sertraline HCl (Sertraline Hcl 100 Mg Tablet) 100 mg PO DAILY [facility] Last Admin: 12/25/24 09:19 Dose: 100 mg Tamsulosin HCl (Tamsulosin Hcl 0.4 Mg Capsule) 0.8 mg PO BEDTIME [facility] Last Admin: 12/24/24 21:03 Dose: 0.8 mg Thiamine HCl (Thiamine Hcl 100 Mg Tablet) 100 mg PO DAILY [facility] Last Admin: 12/25/24 09:18 Dose: 100 mg Trazodone HCl (Trazodone Hcl 50 Mg Tablet) 50 mg PO BEDTIME PRN PRN Reason: Insomnia Last Admin: 12/18/24 20:26 Dose: 50 mg Triamcinolone Acetonide (Triamcinolone Acet 0.1 % Cream 15 Gm Tube) 1 appl TOPICAL BID [facility]; Protocol Last Admin: 12/25/24 09:25 Dose: Not Given Allergies Allergies Allergy/AdvReac Type Severity Reaction Status Date / Time No Known Allergies (NKA) Allergy Unknown NONE Verified 10/27/24 19:26 Assessment & Plan Assessment & Plan (1) Schizoaffective disorder: Status: Acute Code(s): F25.9 - Schizoaffective disorder, unspecified (2) Catatonia: Status: Acute Code(s): F06.1 - Catatonic disorder due to known physiological condition (3) Essential hypertension: Status: Acute Code(s): I10 - Essential (primary) hypertension (4) Urinary retention with incomplete bladder emptying: Status: Acute Code(s): R33.9 - Retention of urine, unspecified Plan Schizoaffective DO/Depression with decompensation /Catatonia Treatment per psychiatric team Currently receiving Ketamine treatments. Plan is most likely [facility] ketamine treatments Will need alternative IV access. Patient with poor venous access. Consider PICC line or port. Fungal rash to left buttock Triamcinolone cream BID until clear. Urinary retention/BPH Continue Flomax Monitor for retention. Recent UA negative. Plan Assessment and Plan 59 year-old male with hx of schizoaffective disorder, hypertension, urinary retention, type 2 diabetes, depression recently discharged from S[facility] on 10/08/2024 after prolonged admission due to treatment resistant catatonia. He had responded to Ketamine treatment, failed ECT with further complications including aspiration. He presented from [facility] with a change in mental status, he was found wandering in the streets soaked in urine. Depression with decompensation of schizophrenia, catatonia. Status post ketamine treatments, history of ECT with aspiration event Treatment per psych team. Urinary retention/BPH Continue Flomax 0.8mg, Finesteride Dove catheter in place. Follow up urology outpatient Dysphagia Tolerating diet, HOB up. OOB for meals. Mr. Tenorio is a 59 year-old male with hx of schizoaffective disorder recently discharged from S[facility] on 10/08/2024 after prologued admission due to treatment resistant catatonia. He had responded to ketamine treatment, failed ECT with further complications including aspiration. He presents with catatonia again including mutism, waxy flexibility. He had one ketamine treatment since he was discharged from the hospital and only partial dose. He was recommended to do weekly ketamine treatments to prevent catatonia. reports he was taking medications as prescribed. Pending clozapine/norclozapine levels. PLAN 1. Admit to S1, Sect 12b, 1:1 unsteady gait 2. will check KUB for constipation as pt very poor historian but reports no BM in several days. Will also check bladder scan post void to rule out overflow incontinence due to urinary retention since reports increase incontinence in past few days. Note that he was straight cath while in the ED. 3. restart medications- abilify, sertraline, clozapine, low dose depakote 4. obtain collateral information 5. aftercare panning. 10/29/24 Pt to restart ketamine hcp in effect on 12 b at present 10/30/2024 Patient now on CV by healthcare proxy. Ketamine protocol ordered for the morning the that was previously quite helpful in treating patients catatonia has not responded previously well to lorazepam had only intermittent response to ECT here proxy does not wish ECT treatment and did respond to ketamine Medications continue that previously had been helpful on recent discharge 10/31/2024 Patient given 1st ketamine treatment had respondent previously to a series no change this point. Encourage food and fluids face anxious in appearance mostly mute minimally responsive catatonic symptoms continue. Continue Abilify mirtazapine sertraline Clozaril 150 mg Continue ketamine trial 11/01/2024 Patient remains generally unchanged. Continue clozapine sertraline mirtazapine Abilify 5 mg pramipexole 0.5 t.i.d. part of previous catatonia algorithm. Ketamine scheduled when possible had previously been quite helpful was previously on a 2 week 2 times a week schedule Urinary retention positive urine culture case discussed hospitalist service. Hospitalist consult called. Plan for antibiotics and Dove catheter and then trial without the catheter as possible check electrolytes in the morning may benefit from fluid replacement. Maintain head of the bed elevated supportive nursing care plan to reduce possible congestion 11/02: Continue current regimen and plans 11/03: Continue current plans and regimen Reason for continued inpatient stay 11/05/24 Pt with some imp more alert tolerating ketamine tx needs assist eating walking flat catatonic cont pts catatonia protocal 11/06/2024 Continue plan of care ketamine 11/07/2024 some mild improvement noted continue Monday ketamine treatment 11/07/2024 Patient continues to show improvement from initial catatonia more verbal try to evaluate mood and psychosis. Need clarity why patient was unable to complete outpatient ketamine 11/08/2024 Gradual improvement continues patient able to ambulate independently Dove catheter continues continue ketamine clozapine mirtazapine Abilify 11/09 no change in presentation; continue treatment plan 11/10 Been doing much better today, walking around, talking. He agrees and says he is doing all right.' patient remembers that it was hard for him to talk yesterday but unable to say why. 11/11/2024 Patient has had 2 days of marked improvement unable to explain behavior prior to admission refusing intravenous ketamine what exactly happened home and why he has negative connotations unable to give a clear history regarding this appears to be responding well to continue ketamine increase Depakote 11/12/2024 Will try discontinue Dove catheter and voiding trial. Monitor for cycling change patient appears to be shifting out of catatonia much orozco range of affect future oriented. Ketamine held today scheduled for 821. Continue Abilify clozapine Depakote try and determine lowest schedule for ketamine that maintains patient very little to go by to guide this decision 10/2024 Continue plan of care monitor for martha or confusion ketamine in the morning monitor response to discontinuing Dove 11/14/2024 Patient's some increased anxiety status post ketamine denies psychotic symptoms offered option of lorazepam PRN Will need to evaluate ketamine dosing 11/15/2024 Increase Abilify to 10 mg lower sertraline to 50 mg monitor response question patient overstimulated by antidepressants check Depakote level check ammonia 11/16/24 Continue plan of care check level 11/17/24 Continue to monitor 11/18/2024 Ketamine on hold gradually increase clozapine and Depakote check level 11/19/2024 Patient seems improved orozco affect calmer and more cooperative less irritable. Question adverse reaction to higher dose of sertraline now decreased responding to increased Depakote. Ketamine infusion scheduled for 11/2111/20/2024 Patient continues on prior algorithm for catatonia which includes Abilify clozapine mirtazapine clozapine. He is also on Depakote Depakote level 28.6 ammonia level unremarkable could decrease Depakote monitor response to ketamine see if we can try and discontinue currently 1 time a week monitor for any adverse effect 11/21/24 dep level low can increase ammonia ok can try and see if ketamine could be held 11/22/24 will try amantadine for eps monitor response 11/27/2024 Ketamine in the morning will try half dosing continue amantadine for EPS continue clozapine and Depakote 11/28/2024 Continue plan of care catatonia markedly improved coordinate discharge 11/29/24 Pt improved fx less lable cont cloizapine amantadine new for eps 11/30 Checked vitals and grossly WNL Nursing reports that patient was irritable today. On approach patient did not want to talk and said I am all set.. Room smelled of urine 12/01 Is quite irritable; today patient got kicked out of OT group which is a 1st. On approach patient said that he is all right and acknowledges that he got angry but does not want to talk about it -ordered p.r.n. Ativan which is helped in the past following ketamine -ordered UA 12/02/2024 Ketamine ordered for the morning patient again it or irritable reactive aggressive unwilling to process emotions and thinking amantadine discontinued may be contributing to irritability agitation was prescribed for EPS. Patient not stable for discharge needs frequent cuing for food fluids internally preoccupied again isolated 12 03 24 Patient seems somewhat improved with ketamine treatment at full dosing this morning he is able to ambulate sit in the kitchen needs assist with showering psychomotor retarded but improved from yesterday limited verbally flat. Amantadine discontinued limited options for EPS given patient history of urinary retention avoiding Cogentin amantadine may have caused irritability check Depakote and Clozaril level working to discharge to a [facility] fdc when possible 12/04/24 Patient withdrawn and blunted ketamine against scheduled for tomorrow morning has responded previously unclear why he relapsed again. Increase clozapine will need PICC line or port 12/05/2024 Patient seems improved with to intravenous ketamine treatments this week less deep in the catatonia scale blunted with poverty of speech in minimal recheck activity but definitely significant improvement from days ago some increase range of emotion and less delay in speech Clozapine increased Coordination with [facility] 12/06/2024 Patient agreeable placement of PICC line remains with some catatonic symptoms but generally improving needs help and cuing for basic functioning not overly depressed continue clozapine Abilify Depakote part of catatonia protocol scheduled ketamine for next week 12/07, 12/08: no change today 12/09/2024 Continue catatonia protocol ketamine for the morning PICC line placed increase mirtazapine consider restart Namenda clozapine has been increased 12/10/2024 Will continue 2 times a week ketamine protocol for catatonia increase sertraline although lorazepam failed previously consider retrial monitor mood 12/11/2024 Ketamine scheduled for 12/12/2024 sertraline increase increase clozapine gradually patient has responded to 2 times a week ketamine previously with a much orozco range of affect and much improvement in mood 12/12/2024 Continue ketamine clozapine increased to 275 improved with ketamine treatment will continue protocol today's the 1st day of any significant improvement need to maintain improvement 12/13/2024 Continue 2 times a week ketamine for 1 more week increase clozapine to 300 mg 12/14 irritable today, refusing to answer questions by staff; does not want to engage. 12/15 brighter, friendler; says he's good and that medications are fine the way they are 12/16 Patient's ANC has decreased to 3.2 will repeat patient still with restricted affect needs cuing for most behavior does eat and drink Limited range of affect increase mirtazapine to 30 mg scheduled for ketamine 923 PICC line has been placed 12/17/[address] Reinaldo Munoz mood flat with some periods of increased range of affect poverty of content continues some internal preoccupation patient on sertraline 100 mirtazapine 30 Abilify 10 clozapine 300 ketamine b.i.d. trying to see if there is setting with [facility] meeting organized 12/18: Continue current treatment regimen. 12/19/24 still poor adls disheveled poor grooming bathing inc range of affect 12/20/24 coordinate with [facility] d/c planning very limited range affect clear partial response to ketamine 12/23/24 Pt has been somewhat improved started on namnda to help boast 12/25/2024 Continue Namenda sertraline mirtazapine ketamine infusion tomorrow will then taper Reason for continued inpatient stay Substantial Risk for: inability to function, rapid decompensation and med/psych decompensation Time Spent With Patient Time: Total time managing care of this patient today ____ minutes.
[2024-12-25 20:00] VITALS: BP 138/69; PULSE 82; RESP 16; TEMP 36.9; O2SAT 95
[2024-12-25] MEDS: Milk of Magnesia 30 ML ORAL.SUSP 5 ML PO (21:09)
[2024-12-25] MEDS: Divalproex Sodium Sprinkles 125 MG CAP.DR.SPR 1000 MG PO (21:10)
[2024-12-25] MEDS: cloZAPine 300 MG, cloZAPine 25 MG 325 MG PO (21:12)
[2024-12-26] VITALS (11 sets, daily range): BP systolic 119–141; BP diastolic 62–70; PULSE 74–83; RESP 12–20; TEMP 36.1–36.4; O2SAT 92–99; BMI 29.6
[2024-12-26 09:48] LABS: Clozapine (Clozaril) 370 mcg/L
[2024-12-26] MEDS: Ferrous Sulfate 324 MG TABLET.DR PO (10:25)
[2024-12-26] MEDS: Heparin Sodium,Porcine Flush 50 UNITS, 0.9 % Sodium Chloride Flush 5 ML IVFLUSH ×3 (10:26→20:18)
--- NOTE | 2024-12-26 11:09 | PC.NURSE ---
Pt returned to S1 from PACU for Ketamine tx after 1000. Provider approved all scheduled morning medications to be administered late. RN administered morning medications.
--- NOTE | 2024-12-26 14:41 | HO.PSYCHPN ---
Subjective Subjective Date of Service: 12/26/24 Reason For Visit: Catatonia Subjective Notes: Conditional Voluntary Healthcare Proxy: Yes Medical Problems Affecting Mental Status: No Interim History: Patient found in his room, walking from the bathroom to his bed. He notes that he feels good. He denies anxiety or depression. He denies SI/HI/AVH. Per nursing, he has been pleasant and cooperative, sociable, ate 100% of each meal, slept for 8 hours, and will be discharged next week. Medication Compliance: Yes Side effects from medications: No Attending Groups: Intermittent Review of Systems Acute medical concerns: No Review of Systems Review of Systems Yes all other systems are reviewed and are negative Mental Status Exam Mental Status Exam Narrative: Appearance: Casually dressed, adequate hygiene Behavior: Calm and cooperative throughout the interview. Guarded. Eye contact is appropriate, and there are no signs of psychomotor agitation or retardation Speech: Normal volume and prosody Thought process: Logical and goal-directed Thought content: Future oriented no self-harming thoughts Mood: Good Affect: Constricted SI:denies HI:denies VH/AH:none Delusions: None Insight/judgment: Fair insight and judgment Memory/cog: Alert, oriented to person, place, and time. grossly intact to conversational testing Diagnostics Vital Signs (24Hr): Vital Signs - 24 hr 12/25/24 20:00 12/26/24 08:00 12/26/24 08:15 Temperature 98.4 F 97.2 F Pulse Rate 82 77 79 Respiratory Rate 16 17 16 Blood Pressure 138/69 129/70 127/65 Pulse Oximetry 95 95 93 Oxygen Delivery Method Room Air Room Air Room Air 12/26/24 08:30 12/26/24 08:45 12/26/24 09:00 Temperature Pulse Rate 80 79 76 Respiratory Rate 15 16 20 Blood Pressure 129/65 136/66 130/65 Pulse Oximetry 95 92 94 Oxygen Delivery Method Room Air Room Air Room Air 12/26/24 09:15 12/26/24 09:30 12/26/24 09:45 Temperature Pulse Rate 77 75 74 Respiratory Rate 15 12 12 Blood Pressure 130/68 128/65 120/65 Pulse Oximetry 94 95 95 Oxygen Delivery Method Room Air Room Air Room Air 12/26/24 10:00 12/26/24 10:20 Temperature 97 F 97.2 F Pulse Rate 74 76 Respiratory Rate 16 Blood Pressure 119/62 131/63 Pulse Oximetry 94 99 Oxygen Delivery Method Room Air Room Air BMI result Body Mass Index 29.6 Labs 12/17/24 15:52 11/19/24 10:54 Labs: Laboratory Results - last 48 hr 12/22/24 09:34 Clozapine 370 Norclozapine 125 Imaging Radiology Impressions: ITS Impressions KUB X-Ray 10/28/24 16:45 IMPRESSION: Again seen is a large amount of stool throughout the colon and rectum. Electronically signed by: Jose J Gonzalez MD 10/28/2024 05:20 PM EDT RP PICC Line Insertion 12/06/24 14:58 IMPRESSION: Exchange of midline to a 5 fr 55 cm, dual lumen power PICC PLAN: -The catheter may be used immediately. This procedure was performed by Doug Contreras NP, and directly supervised by Aly Carr M.D. Electronically signed by: Aly Carr MD 12/12/2024 11:36 AM EDT RP Workstation: [id number] Medications Medications Current Medications Acetaminophen (Acetaminophen 325 Mg Tablet) 650 mg PO Q6H PRN PRN Reason: Headache/Pain, Scale 1-10 Last Admin: 11/01/24 20:01 Dose: 650 mg Al Hydroxide/Mg Hydroxide (Magnesium Hydrox/Alum Hydrox 30 Ml Oral.Susp) 30 ml PO Q6H PRN PRN Reason: Heartburn/Nausea Aripiprazole (Aripiprazole 10 Mg Tablet) 10 mg PO DAILY@1730 [facility] Last Admin: 12/25/24 17:04 Dose: 10 mg Ascorbic Acid (Ascorbic Acid 500 Mg Tablet) 500 mg PO DAILY [facility] Last Admin: 12/26/24 10:25 Dose: 500 mg Clozapine 300 mg/ Clozapine 25 (mg) 325 mg PO DAILY@1999 [facility] Last Admin: 12/25/24 21:12 Dose: 325 mg Heparin Sodium (Porcine) 50 (units/ Sodium Chloride 5 ml) 0 units IVFLUSH TID [facility] Last Admin: 12/26/24 10:26 Dose: 50 unit Divalproex Sodium (Divalproex Sodium Sprinkles 125 Mg Cap.) 1,000 mg PO DAILY@1999 [facility] Last Admin: 12/25/24 21:10 Dose: 1,000 mg Ferrous Sulfate (Ferrous Sulfate 324 Mg Tablet.Dr) 324 mg PO DAILY [facility] Last Admin: 12/26/24 10:25 Dose: 324 mg Finasteride (Finasteride 5 Mg Tablet) 5 mg PO DAILY [facility] Last Admin: 12/26/24 10:24 Dose: 5 mg Hydrocortisone (Hydrocortisone 1 % Ointment 28.35 Gm Tube) 1 appl TOPICAL BID PRN; Protocol PRN Reason: skin irritation Magnesium Hydroxide (Milk Of Magnesia 30 Ml Oral.Susp) 30 ml PO DAILY PRN PRN Reason: Constipation Magnesium Hydroxide (Milk Of Magnesia 30 Ml Oral.Susp) 5 ml PO BEDTIME [facility] Last Admin: 12/25/24 21:09 Dose: 5 ml Memantine (Memantine Hcl 5 Mg Tablet) 5 mg PO DAILY [facility] Last Admin: 12/26/24 10:25 Dose: 5 mg Mirtazapine (Mirtazapine 7.5 Mg Tablet) 22.5 mg PO BEDTIME [facility] Last Admin: 12/25/24 21:11 Dose: 22.5 mg Olanzapine (Olanzapine Odt 10 Mg Tab.Rapdis) 5 mg TRANSLINGU BID PRN PRN Reason: agitation Last Admin: 12/01/24 08:14 Dose: 5 mg Polyethylene Glycol (Polyethylene Glycol 3350 17 Gm Powd.Pack) 17 gm PO DAILY [facility] Last Admin: 12/26/24 10:24 Dose: 17 gm Pramipexole Dihydrochloride (Pramipexole Di-Hcl 0.25 Mg Tablet) 0.5 mg PO TID [facility] Last Admin: 12/26/24 10:24 Dose: 0.5 mg Senna/Docusate Sodium (Sennosides/Docusate Sodium Tablet) 1 tab PO BID PRN PRN Reason: no BM for more than 3days Sertraline HCl (Sertraline Hcl 100 Mg Tablet) 100 mg PO DAILY [facility] Last Admin: 12/26/24 10:26 Dose: 100 mg Tamsulosin HCl (Tamsulosin Hcl 0.4 Mg Capsule) 0.8 mg PO BEDTIME [facility] Last Admin: 12/25/24 21:13 Dose: 0.8 mg Thiamine HCl (Thiamine Hcl 100 Mg Tablet) 100 mg PO DAILY [facility] Last Admin: 12/26/24 10:26 Dose: 100 mg Trazodone HCl (Trazodone Hcl 50 Mg Tablet) 50 mg PO BEDTIME PRN PRN Reason: Insomnia Last Admin: 12/18/24 20:26 Dose: 50 mg Triamcinolone Acetonide (Triamcinolone Acet 0.1 % Cream 15 Gm Tube) 1 appl TOPICAL BID [facility]; Protocol Last Admin: 12/26/24 10:30 Dose: Not Given Allergies Allergies Allergy/AdvReac Type Severity Reaction Status Date / Time No Known Allergies (NKA) Allergy Unknown NONE Verified 10/27/24 19:26 Assessment & Plan Assessment & Plan (1) Schizoaffective disorder: Status: Acute Code(s): F25.9 - Schizoaffective disorder, unspecified (2) Catatonia: Status: Acute Code(s): F06.1 - Catatonic disorder due to known physiological condition (3) Essential hypertension: Status: Acute Code(s): I10 - Essential (primary) hypertension (4) Urinary retention with incomplete bladder emptying: Status: Acute Code(s): R33.9 - Retention of urine, unspecified Plan Schizoaffective DO/Depression with decompensation /Catatonia Treatment per psychiatric team Currently receiving Ketamine treatments. Plan is most likely group home ketamine treatments Will need alternative IV access. Patient with poor venous access. Consider PICC line or port. Fungal rash to left buttock Triamcinolone cream BID until clear. Urinary retention/BPH Continue Flomax Monitor for retention. Recent UA negative. Plan Assessment and Plan 59 year-old male with hx of schizoaffective disorder, hypertension, urinary retention, type 2 diabetes, depression recently discharged from on 10/08/2024 after prolonged admission due to treatment resistant catatonia. He had responded to Ketamine treatment, failed ECT with further complications including aspiration. He presented from long-term with a change in mental status, he was found wandering in the streets soaked in urine. Depression with decompensation of schizophrenia, catatonia. Status post ketamine treatments, history of ECT with aspiration event Treatment per psych team. Urinary retention/BPH Continue Flomax 0.8mg, Finesteride Dove catheter in place. Follow up urology outpatient Dysphagia Tolerating diet, HOB up. OOB for meals. Mr. 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 He had responded to ketamine treatment, failed ECT with further complications including aspiration. He presents with catatonia again including mutism, waxy flexibility. He had one ketamine treatment since he was discharged from the hospital and only partial dose. He was recommended to do weekly ketamine treatments to prevent catatonia. reports he was taking medications as prescribed. Pending clozapine/norclozapine levels. PLAN 1. Admit to S1, Sect 12b, 1:1 unsteady gait 2. will check KUB for constipation as pt very poor historian but reports no BM in several days. Will also check bladder scan post void to rule out overflow incontinence due to urinary retention since reports increase incontinence in past few days. Note that he was straight cath while in the ED. 3. restart medications- abilify, sertraline, clozapine, low dose depakote 4. obtain collateral information 5. aftercare panning. 10/29/24 Pt to restart ketamine hcp in effect on 12 b at present 10/30/2024 Patient now on CV by healthcare proxy. Ketamine protocol ordered for the morning the that was previously quite helpful in treating patients catatonia has not responded previously well to lorazepam had only intermittent response to ECT here proxy does not wish ECT treatment and did respond to ketamine Medications continue that previously had been helpful on recent discharge 10/31/2024 Patient given 1st ketamine treatment had respondent previously to a series no change this point. Encourage food and fluids face anxious in appearance mostly mute minimally responsive catatonic symptoms continue. Continue Abilify mirtazapine sertraline Clozaril 150 mg Continue ketamine trial 11/01/2024 Patient remains generally unchanged. Continue clozapine sertraline mirtazapine Abilify 5 mg pramipexole 0.5 t.i.d. part of previous catatonia algorithm. Ketamine scheduled when possible had previously been quite helpful was previously on a 2 week 2 times a week schedule Urinary retention positive urine culture case discussed hospitalist service. Hospitalist consult called. Plan for antibiotics and Dove catheter and then trial without the catheter as possible check electrolytes in the morning may benefit from fluid replacement. Maintain head of the bed elevated supportive nursing care plan to reduce possible congestion 11/02: Continue current regimen and plans 11/03: Continue current plans and regimen Reason for continued inpatient stay 11/05/24 Pt with some imp more alert tolerating ketamine tx needs assist eating walking flat catatonic cont pts catatonia protocal 11/06/2024 Continue plan of care ketamine 11/07/2024 some mild improvement noted continue Monday ketamine treatment 11/07/2024 Patient continues to show improvement from initial catatonia more verbal try to evaluate mood and psychosis. Need clarity why patient was unable to complete outpatient ketamine 11/08/2024 Gradual improvement continues patient able to ambulate independently Dove catheter continues continue ketamine clozapine mirtazapine Abilify 11/09 no change in presentation; continue treatment plan 11/10 Been doing much better today, walking around, talking. He agrees and says he is doing all right.' patient remembers that it was hard for him to talk yesterday but unable to say why. 11/11/2024 Patient has had 2 days of marked improvement unable to explain behavior prior to admission refusing intravenous ketamine what exactly happened home and why he has negative connotations unable to give a clear history regarding this appears to be responding well to continue ketamine increase Depakote 11/12/2024 Will try discontinue Dove catheter and voiding trial. Monitor for cycling change patient appears to be shifting out of catatonia much orozco range of affect future oriented. Ketamine held today scheduled for 821. Continue Abilify clozapine Depakote try and determine lowest schedule for ketamine that maintains patient very little to go by to guide this decision 10/2024 Continue plan of care monitor for martha or confusion ketamine in the morning monitor response to discontinuing Dove 11/14/2024 Patient's some increased anxiety status post ketamine denies psychotic symptoms offered option of lorazepam PRN Will need to evaluate ketamine dosing 11/15/2024 Increase Abilify to 10 mg lower sertraline to 50 mg monitor response question patient overstimulated by antidepressants check Depakote level check ammonia 11/16/24 Continue plan of care check level 11/17/24 Continue to monitor 11/18/2024 Ketamine on hold gradually increase clozapine and Depakote check level 11/19/2024 Patient seems improved orozco affect calmer and more cooperative less irritable. Question adverse reaction to higher dose of sertraline now decreased responding to increased Depakote. Ketamine infusion scheduled for 11/2111/20/2024 Patient continues on prior algorithm for catatonia which includes Abilify clozapine mirtazapine clozapine. He is also on Depakote Depakote level 28.6 ammonia level unremarkable could decrease Depakote monitor response to ketamine see if we can try and discontinue currently 1 time a week monitor for any adverse effect 11/21/24 dep level low can increase ammonia ok can try and see if ketamine could be held 11/22/24 will try amantadine for eps monitor response 11/27/2024 Ketamine in the morning will try half dosing continue amantadine for EPS continue clozapine and Depakote 11/28/2024 Continue plan of care catatonia markedly improved coordinate discharge 11/29/24 Pt improved fx less lable cont cloizapine amantadine new for eps 11/30 Checked vitals and grossly WNL Nursing reports that patient was irritable today. On approach patient did not want to talk and said I am all set.. Room smelled of urine 12/01 Is quite irritable; today patient got kicked out of OT group which is a 1st. On approach patient said that he is all right and acknowledges that he got angry but does not want to talk about it -ordered p.r.n. Ativan which is helped in the past following ketamine -ordered UA 12/02/2024 Ketamine ordered for the morning patient again it or irritable reactive aggressive unwilling to process emotions and thinking amantadine discontinued may be contributing to irritability agitation was prescribed for EPS. Patient not stable for discharge needs frequent cuing for food fluids internally preoccupied again isolated 12 03 24 Patient seems somewhat improved with ketamine treatment at full dosing this morning he is able to ambulate sit in the kitchen needs assist with showering psychomotor retarded but improved from yesterday limited verbally flat. Amantadine discontinued limited options for EPS given patient history of urinary retention avoiding Cogentin amantadine may have caused irritability check Depakote and Clozaril level working to discharge to a [facility] long-term when possible 12/04/24 Patient withdrawn and blunted ketamine against scheduled for tomorrow morning has responded previously unclear why he relapsed again. Increase clozapine will need PICC line or port 12/05/2024 Patient seems improved with to intravenous ketamine treatments this week less deep in the catatonia scale blunted with poverty of speech in minimal recheck activity but definitely significant improvement from days ago some increase range of emotion and less delay in speech Clozapine increased Coordination with [facility] 12/06/2024 Patient agreeable placement of PICC line remains with some catatonic symptoms but generally improving needs help and cuing for basic functioning not overly depressed continue clozapine Abilify Depakote part of catatonia protocol scheduled ketamine for next week 12/07, 12/08: no change today 12/09/2024 Continue catatonia protocol ketamine for the morning PICC line placed increase mirtazapine consider restart Namenda clozapine has been increased 12/10/2024 Will continue 2 times a week ketamine protocol for catatonia increase sertraline although lorazepam failed previously consider retrial monitor mood 12/11/2024 Ketamine scheduled for 12/12/2024 sertraline increase increase clozapine gradually patient has responded to 2 times a week ketamine previously with a much orozco range of affect and much improvement in mood 12/12/2024 Continue ketamine clozapine increased to 275 improved with ketamine treatment will continue protocol today's the 1st day of any significant improvement need to maintain improvement 12/13/2024 Continue 2 times a week ketamine for 1 more week increase clozapine to 300 mg 12/14 irritable today, refusing to answer questions by staff; does not want to engage. 12/15 princess, friendler; says he's good and that medications are fine the way they are 12/16 Patient's ANC has decreased to 3.2 will repeat patient still with restricted affect needs cuing for most behavior does eat and drink Limited range of affect increase mirtazapine to 30 mg scheduled for ketamine 923 PICC line has been placed 12/17/[address] Reinaldo Munoz mood flat with some periods of increased range of affect poverty of content continues some internal preoccupation patient on sertraline 100 mirtazapine 30 Abilify 10 clozapine 300 ketamine b.i.d. trying to see if there is setting with [facility] meeting organized 12/18: Continue current treatment regimen. 12/19/24 still poor adls disheveled poor grooming bathing inc range of affect 12/20/24 coordinate with chd d/c planning very limited range affect clear partial response to ketamine 12/23/24 Pt has been somewhat improved started on namnda to help boast 12/26: Continue current treatment regimen. Plan is to discharge next week. Patient educated on: therapeutic strategies Reason for continued inpatient stay Substantial Risk for: rapid decompensation Time Spent With Patient Time: Total time managing care of this patient today ____ minutes.
[2024-12-26] MEDS: Divalproex Sodium Sprinkles 125 MG CAP.DR.SPR 1000 MG PO (20:12)
[2024-12-26] MEDS: cloZAPine 300 MG, cloZAPine 25 MG 325 MG PO (20:15)
[2024-12-26] MEDS: Milk of Magnesia 30 ML ORAL.SUSP 5 ML PO (20:16)
[2024-12-27 08:45] VITALS: BP 131/68; PULSE 72; RESP 16; TEMP 36.6; O2SAT 96
[2024-12-27] MEDS: Ferrous Sulfate 324 MG TABLET.DR PO (09:40)
[2024-12-27] MEDS: Heparin Sodium,Porcine Flush 50 UNITS, 0.9 % Sodium Chloride Flush 5 ML IVFLUSH ×3 (09:41→20:28)
[2024-12-27 20:00] VITALS: BP 121/67; PULSE 81; RESP 18; TEMP 36.3; O2SAT 96
[2024-12-27] MEDS: Divalproex Sodium Sprinkles 125 MG CAP.DR.SPR 1000 MG PO (20:27)
[2024-12-27] MEDS: Milk of Magnesia 30 ML ORAL.SUSP 5 ML PO (20:27)
[2024-12-27] MEDS: cloZAPine 300 MG, cloZAPine 25 MG 325 MG PO (20:28)
--- NOTE | 2024-12-28 07:21 | P.PNPSI_ITS ---
Subjective Subjective Date of Service: 12/28/24 Reason For Visit: Catatonia Subjective Notes: Conditional Voluntary Healthcare Proxy: Yes Interim History: met with patient. Discussed with Nursing. Much brighter in affect. Engaged. Reports feeling safe in getting on well with patients and staff. Feels that he is at the point where he would like to discuss discharge planning with primary team. Reports sleep energy and appetite good. No med or treatment concerns Medication Compliance: Yes Side effects from medications: No Review of Systems Acute medical concerns: No Review of Systems Review of Systems nothing of note Mental Status Exam Mental Status Exam Narrative: Appearance: Casually dressed, adequate hygiene Behavior: Calm and cooperative throughout the interview. Guarded. Eye contact is appropriate, and there are no signs of psychomotor agitation or retardation Speech: Normal volume and prosody Thought process: Logical and goal-directed Thought content: Future oriented no self-harming thoughts Mood: Good Affect: much brighter SI:denies HI:denies VH/AH:none Delusions: None Insight/judgment: Fair insight and judgment Memory/cog: Alert, oriented to person, place, and time. grossly intact to conversational testing Diagnostics Vital Signs (24Hr): Vital Signs - 24 hr 12/27/24 08:45 12/27/24 20:00 Temperature 97.9 F 97.3 F Pulse Rate 72 81 Respiratory Rate 16 18 Blood Pressure 131/68 121/67 Pulse Oximetry 96 96 Oxygen Delivery Method Room Air Room Air BMI result Body Mass Index 29.6 Labs 12/17/24 15:52 11/19/24 10:54 Labs: Laboratory Results - last 48 hr 12/22/24 09:34 Clozapine 370 Norclozapine 125 Imaging Radiology Impressions: ITS Impressions KUB X-Ray 10/28/24 16:45 IMPRESSION: Again seen is a large amount of stool throughout the colon and rectum. Electronically signed by: Jose J Gonzalez MD 10/28/2024 05:20 PM EDT PICC Line Insertion 12/06/24 14:58 IMPRESSION: Exchange of midline to a 5 fr 55 cm, dual lumen power PICC PLAN: -The catheter may be used immediately. This procedure was performed by Doug Contreras NP, and directly supervised by Aly Carr M.D. Electronically signed by: Aly Carr MD 12/12/2024 11:36 AM EDT Workstation: [id number] Medications Medications Current Medications Acetaminophen (Acetaminophen 325 Mg Tablet) 650 mg PO Q6H PRN PRN Reason: Headache/Pain, Scale 1-10 Last Admin: 11/01/24 20:01 Dose: 650 mg Al Hydroxide/Mg Hydroxide (Magnesium Hydrox/Alum Hydrox 30 Ml Oral.Susp) 30 ml PO Q6H PRN PRN Reason: Heartburn/Nausea Aripiprazole (Aripiprazole 10 Mg Tablet) 10 mg PO DAILY@173 [facility] Last Admin: 12/27/24 16:46 Dose: 10 mg Ascorbic Acid (Ascorbic Acid 500 Mg Tablet) 500 mg PO DAILY [facility] Last Admin: 12/27/24 09:39 Dose: 500 mg Clozapine 300 mg/ Clozapine 25 (mg) 325 mg PO DAILY@1999 [facility] Last Admin: 12/27/24 20:28 Dose: 325 mg Heparin Sodium (Porcine) 50 (units/ Sodium Chloride 5 ml) 0 units IVFLUSH TID [facility] Last Admin: 12/27/24 20:28 Dose: 50 unit Divalproex Sodium (Divalproex Sodium Sprinkles 125 Mg Cap.Dr.Spr) 1,000 mg PO DAILY@1999 [facility] Last Admin: 12/27/24 20:27 Dose: 1,000 mg Ferrous Sulfate (Ferrous Sulfate 324 Mg Tablet.) 324 mg PO DAILY [facility] Last Admin: 12/27/24 09:40 Dose: 324 mg Finasteride (Finasteride 5 Mg Tablet) 5 mg PO DAILY [facility] Last Admin: 12/27/24 09:39 Dose: 5 mg Hydrocortisone (Hydrocortisone 1 % Ointment 28.35 Gm Tube) 1 appl TOPICAL BID PRN; Protocol PRN Reason: skin irritation Magnesium Hydroxide (Milk Of Magnesia 30 Ml Oral.Susp) 30 ml PO DAILY PRN PRN Reason: Constipation Magnesium Hydroxide (Milk Of Magnesia 30 Ml Oral.Susp) 5 ml PO BEDTIME [facility] Last Admin: 12/27/24 20:27 Dose: 5 ml Memantine (Memantine Hcl 5 Mg Tablet) 5 mg PO DAILY [facility] Last Admin: 12/27/24 09:40 Dose: 5 mg Mirtazapine (Mirtazapine 7.5 Mg Tablet) 22.5 mg PO BEDTIME [facility] Last Admin: 12/27/24 20:28 Dose: 22.5 mg Olanzapine (Olanzapine Odt 10 Mg Tab.Rapdis) 5 mg TRANSLINGU BID PRN PRN Reason: agitation Last Admin: 12/01/24 08:14 Dose: 5 mg Polyethylene Glycol (Polyethylene Glycol 3350 17 Gm Powd.Pack) 17 gm PO DAILY [facility] Last Admin: 12/27/24 09:41 Dose: 17 gm Pramipexole Dihydrochloride (Pramipexole Di-Hcl 0.25 Mg Tablet) 0.5 mg PO TID [facility] Last Admin: 12/27/24 20:27 Dose: 0.5 mg Senna/Docusate Sodium (Sennosides/Docusate Sodium Tablet) 1 tab PO BID PRN PRN Reason: no BM for more than 3days Sertraline HCl (Sertraline Hcl 100 Mg Tablet) 100 mg PO DAILY [facility] Last Admin: 12/27/24 09:41 Dose: 100 mg Tamsulosin HCl (Tamsulosin Hcl 0.4 Mg Capsule) 0.8 mg PO BEDTIME [facility] Last Admin: 12/27/24 20:27 Dose: 0.8 mg Thiamine HCl (Thiamine Hcl 100 Mg Tablet) 100 mg PO DAILY [facility] Last Admin: 12/27/24 09:40 Dose: 100 mg Trazodone HCl (Trazodone Hcl 50 Mg Tablet) 50 mg PO BEDTIME PRN PRN Reason: Insomnia Last Admin: 12/18/24 20:26 Dose: 50 mg Triamcinolone Acetonide (Triamcinolone Acet 0.1 % Cream 15 Gm Tube) 1 appl TOPICAL BID [facility]; Protocol Last Admin: 12/27/24 20:29 Dose: Not Given Allergies Allergies Allergy/AdvReac Type Severity Reaction Status Date / Time No Known Allergies (NKA) Allergy Unknown NONE Verified 10/27/24 19:26 Assessment & Plan Assessment & Plan (1) Schizoaffective disorder: Status: Acute Code(s): F25.9 - Schizoaffective disorder, unspecified (2) Catatonia: Status: Acute Code(s): F06.1 - Catatonic disorder due to known physiological condition (3) Essential hypertension: Status: Acute Code(s): I10 - Essential (primary) hypertension (4) Urinary retention with incomplete bladder emptying: Status: Acute Code(s): R33.9 - Retention of urine, unspecified Plan Schizoaffective DO/Depression with decompensation /Catatonia Treatment per psychiatric team Currently receiving Ketamine treatments. Plan is most likely terminal supervisor ketamine treatments Will need alternative IV access. Patient with poor venous access. Consider PICC line or port. Fungal rash to left buttock Triamcinolone cream BID until clear. Urinary retention/BPH Continue Flomax Monitor for retention. Recent UA negative. Plan Assessment and Plan 59 year-old male with hx of schizoaffective disorder, hypertension, urinary retention, type 2 diabetes, depression recently discharged from on 10/08/2024 after prolonged admission due to treatment resistant catatonia. He had responded to Ketamine treatment, failed ECT with further complications including aspiration. He presented from senior living with a change in mental status, he was found wandering in the streets soaked in urine. Depression with decompensation of schizophrenia, catatonia. Status post ketamine treatments, history of ECT with aspiration event Treatment per psych team. Urinary retention/BPH Continue Flomax 0.8mg, Finesteride Dove catheter in place. Follow up urology outpatient Dysphagia Tolerating diet, HOB up. OOB for meals. Mr. 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 He had responded to ketamine treatment, failed ECT with further complications including aspiration. He presents with catatonia again including mutism, waxy flexibility. He had one ketamine treatment since he was discharged from the hospital and only partial dose. He was recommended to do weekly ketamine treatments to prevent catatonia. reports he was taking medications as prescribed. Pending clozapine/norclozapine levels. PLAN 1. Admit to S1, Sect 12b, 1:1 unsteady gait 2. will check KUB for constipation as pt very poor historian but reports no BM in several days. Will also check bladder scan post void to rule out overflow incontinence due to urinary retention since reports increase incontinence in past few days. Note that he was straight cath while in the ED. 3. restart medications- abilify, sertraline, clozapine, low dose depakote 4. obtain collateral information 5. aftercare panning. 10/29/24 Pt to restart ketamine hcp in effect on 12 b at present 10/30/2024 Patient now on CV by healthcare proxy. Ketamine protocol ordered for the morning the that was previously quite helpful in treating patients catatonia has not responded previously well to lorazepam had only intermittent response to ECT here proxy does not wish ECT treatment and did respond to ketamine Medications continue that previously had been helpful on recent discharge 10/31/2024 Patient given 1st ketamine treatment had respondent previously to a series no change this point. Encourage food and fluids face anxious in appearance mostly mute minimally responsive catatonic symptoms continue. Continue Abilify mirtazapine sertraline Clozaril 150 mg Continue ketamine trial 11/01/2024 Patient remains generally unchanged. Continue clozapine sertraline mirtazapine Abilify 5 mg pramipexole 0.5 t.i.d. part of previous catatonia algorithm. Ketamine scheduled when possible had previously been quite helpful was previously on a 2 week 2 times a week schedule Urinary retention positive urine culture case discussed hospitalist service. Hospitalist consult called. Plan for antibiotics and Dove catheter and then trial without the catheter as possible check electrolytes in the morning may benefit from fluid replacement. Maintain head of the bed elevated supportive nursing care plan to reduce possible congestion 11/02: Continue current regimen and plans 11/03: Continue current plans and regimen Reason for continued inpatient stay 11/05/24 Pt with some imp more alert tolerating ketamine tx needs assist eating walking flat catatonic cont pts catatonia protocal 11/06/2024 Continue plan of care ketamine 11/07/2024 some mild improvement noted continue Monday ketamine treatment 11/07/2024 Patient continues to show improvement from initial catatonia more verbal try to evaluate mood and psychosis. Need clarity why patient was unable to complete outpatient ketamine 11/08/2024 Gradual improvement continues patient able to ambulate independently Dove catheter continues continue ketamine clozapine mirtazapine Abilify 11/09 no change in presentation; continue treatment plan 11/10 Been doing much better today, walking around, talking. He agrees and says he is doing all right.' patient remembers that it was hard for him to talk yesterday but unable to say why. 11/11/2024 Patient has had 2 days of marked improvement unable to explain behavior prior to admission refusing intravenous ketamine what exactly happened home and why he has negative connotations unable to give a clear history regarding this appears to be responding well to continue ketamine increase Depakote 11/12/2024 Will try discontinue Dove catheter and voiding trial. Monitor for cycling change patient appears to be shifting out of catatonia much orozco range of affect future oriented. Ketamine held today scheduled for 821. Continue Abilify clozapine Depakote try and determine lowest schedule for ketamine that maintains patient very little to go by to guide this decision 10/2024 Continue plan of care monitor for martha or confusion ketamine in the morning monitor response to discontinuing Dove 11/14/2024 Patient's some increased anxiety status post ketamine denies psychotic symptoms offered option of lorazepam PRN Will need to evaluate ketamine dosing 11/15/2024 Increase Abilify to 10 mg lower sertraline to 50 mg monitor response question patient overstimulated by antidepressants check Depakote level check ammonia 11/16/24 Continue plan of care check level 11/17/24 Continue to monitor 11/18/2024 Ketamine on hold gradually increase clozapine and Depakote check level 11/19/2024 Patient seems improved orozco affect calmer and more cooperative less irritable. Question adverse reaction to higher dose of sertraline now decreased responding to increased Depakote. Ketamine infusion scheduled for 11/2111/20/2024 Patient continues on prior algorithm for catatonia which includes Abilify clozapine mirtazapine clozapine. He is also on Depakote Depakote level 28.6 ammonia level unremarkable could decrease Depakote monitor response to ketamine see if we can try and discontinue currently 1 time a week monitor for any adverse effect 11/21/24 dep level low can increase ammonia ok can try and see if ketamine could be held 11/22/24 will try amantadine for eps monitor response 11/27/2024 Ketamine in the morning will try half dosing continue amantadine for EPS continue clozapine and Depakote 11/28/2024 Continue plan of care catatonia markedly improved coordinate discharge 11/29/24 Pt improved fx less lable cont cloizapine amantadine new for eps 11/30 Checked vitals and grossly WNL Nursing reports that patient was irritable today. On approach patient did not want to talk and said I am all set.. Room smelled of urine 12/01 Is quite irritable; today patient got kicked out of OT group which is a 1st. On approach patient said that he is all right and acknowledges that he got angry but does not want to talk about it -ordered p.r.n. Ativan which is helped in the past following ketamine -ordered UA 12/02/2024 Ketamine ordered for the morning patient again it or irritable reactive aggressive unwilling to process emotions and thinking amantadine discontinued may be contributing to irritability agitation was prescribed for EPS. Patient not stable for discharge needs frequent cuing for food fluids internally preoccupied again isolated 12 03 24 Patient seems somewhat improved with ketamine treatment at full dosing this morning he is able to ambulate sit in the kitchen needs assist with showering psychomotor retarded but improved from yesterday limited verbally flat. Amantadine discontinued limited options for EPS given patient history of urinary retention avoiding Cogentin amantadine may have caused irritability check Depakote and Clozaril level working to discharge to a [facility] senior living when possible 12/04/24 Patient withdrawn and blunted ketamine against scheduled for tomorrow morning has responded previously unclear why he relapsed again. Increase clozapine will need PICC line or port 12/05/2024 Patient seems improved with to intravenous ketamine treatments this week less deep in the catatonia scale blunted with poverty of speech in minimal recheck activity but definitely significant improvement from days ago some increase range of emotion and less delay in speech Clozapine increased Coordination with [facility] 12/06/2024 Patient agreeable placement of PICC line remains with some catatonic symptoms but generally improving needs help and cuing for basic functioning not overly depressed continue clozapine Abilify Depakote part of catatonia protocol scheduled ketamine for next week 12/07, 12/08: no change today 12/09/2024 Continue catatonia protocol ketamine for the morning PICC line placed increase mirtazapine consider restart Namenda clozapine has been increased 12/10/2024 Will continue 2 times a week ketamine protocol for catatonia increase sertraline although lorazepam failed previously consider retrial monitor mood 12/11/2024 Ketamine scheduled for 12/12/2024 sertraline increase increase clozapine gradually patient has responded to 2 times a week ketamine previously with a much orozco range of affect and much improvement in mood 12/12/2024 Continue ketamine clozapine increased to 275 improved with ketamine treatment will continue protocol today's the 1st day of any significant improvement need to maintain improvement 12/13/2024 Continue 2 times a week ketamine for 1 more week increase clozapine to 300 mg 12/14 irritable today, refusing to answer questions by staff; does not want to engage. 12/15 princess, friendler; says he's good and that medications are fine the way they are 12/16 Patient's ANC has decreased to 3.2 will repeat patient still with restricted affect needs cuing for most behavior does eat and drink Limited range of affect increase mirtazapine to 30 mg scheduled for ketamine 923 PICC line has been placed 12/17/[address] Reinaldo Munoz mood flat with some periods of increased range of affect poverty of content continues some internal preoccupation patient on sertraline 100 mirtazapine 30 Abilify 10 clozapine 300 ketamine b.i.d. trying to see if there is setting with [facility] meeting organized 12/18: Continue current treatment regimen. 12/19/24 still poor adls disheveled poor grooming bathing inc range of affect 12/20/24 coordinate with chd d/c planning very limited range affect clear partial response to ketamine 12/23/24 Pt has been somewhat improved started on namnda to help boast 12/25/2024 Continue Namenda sertraline mirtazapine ketamine infusion tomorrow will then taper 12/28/2024: No changes to plan. Reason for continued inpatient stay Substantial Risk for: rapid decompensation Time Spent With Patient Time: Total time managing care of this patient today ____ minutes.
[2024-12-28 08:00] VITALS: BP 121/60; PULSE 73; RESP 16; TEMP 36.4; O2SAT 97
[2024-12-28] MEDS: Ferrous Sulfate 324 MG TABLET.DR PO (09:05)
[2024-12-28] MEDS: Heparin Sodium,Porcine Flush 50 UNITS, 0.9 % Sodium Chloride Flush 5 ML IVFLUSH ×3 (09:05→20:23)
[2024-12-28 20:00] VITALS: BP 125/60; PULSE 70; RESP 18; TEMP 36.2; O2SAT 96
[2024-12-28] MEDS: Milk of Magnesia 30 ML ORAL.SUSP 5 ML PO (20:24)
[2024-12-28] MEDS: cloZAPine 300 MG, cloZAPine 25 MG 325 MG PO (20:24)
[2024-12-28] MEDS: Divalproex Sodium Sprinkles 125 MG CAP.DR.SPR 1000 MG PO (20:24)
[2024-12-29 08:00] VITALS: BP 125/62; PULSE 76; TEMP 36.2; O2SAT 99
[2024-12-29] MEDS: Ferrous Sulfate 324 MG TABLET.DR PO (08:53)
[2024-12-29] MEDS: Heparin Sodium,Porcine Flush 50 UNITS, 0.9 % Sodium Chloride Flush 5 ML IVFLUSH ×3 (08:53→20:05)
--- NOTE | 2024-12-29 11:08 | HO.PSYCHPN ---
Subjective Subjective Date of Service: 12/29/24 Reason For Visit: Catatonia Interim History: met with patient. Discussed with Nursing. Continues to be much brighter in affect. Engaged. Feeling safe in getting on well with patients and staff. Feels that he is at the point where he would like to discuss discharge planning with primary team. Reports sleep energy and appetite good. No med or treatment concerns Medication Compliance: Yes Side effects from medications: No Attending Groups: Yes Review of Systems Review of Systems nothing of note Mental Status Exam Mental Status Exam Narrative: Appearance: Casually dressed, adequate hygiene Behavior: Calm and cooperative throughout the interview. Guarded. Eye contact is appropriate, and there are no signs of psychomotor agitation or retardation Speech: Normal volume and prosody Thought process: Logical and goal-directed Thought content: Future oriented no self-harming thoughts Mood: Still good Affect: much brighter SI:denies HI:denies VH/AH:none Delusions: None Insight/judgment: Fair insight and judgment Memory/cog: Alert, oriented to person, place, and time. grossly intact to conversational testing Diagnostics Vital Signs (24Hr): Vital Signs - 24 hr 12/28/24 20:00 12/29/24 08:00 Temperature 97.2 F 97.2 F Pulse Rate 70 76 Respiratory Rate 18 Blood Pressure 125/60 125/62 Pulse Oximetry 96 99 Oxygen Delivery Method Room Air Room Air BMI result Body Mass Index 29.6 Labs 12/17/24 15:52 11/19/24 10:54 Imaging Radiology Impressions: ITS Impressions KUB X-Ray 10/28/24 16:45 IMPRESSION: Again seen is a large amount of stool throughout the colon and rectum. Electronically signed by: Jose J Gonzalez MD 10/28/2024 05:20 PM EDT RP PICC Line Insertion 12/06/24 14:58 IMPRESSION: Exchange of midline to a 5 fr 55 cm, dual lumen power PICC PLAN: -The catheter may be used immediately. This procedure was performed by Doug Contreras NP, and directly supervised by Aly Carr M.D. Electronically signed by: Aly Carr MD 12/12/2024 11:36 AM EDT RP Workstation: [id number] Medications Medications Current Medications Acetaminophen (Acetaminophen 325 Mg Tablet) 650 mg PO Q6H PRN PRN Reason: Headache/Pain, Scale 1-10 Last Admin: 11/01/24 20:01 Dose: 650 mg Al Hydroxide/Mg Hydroxide (Magnesium Hydrox/Alum Hydrox 30 Ml Oral.Susp) 30 ml PO Q6H PRN PRN Reason: Heartburn/Nausea Aripiprazole (Aripiprazole 10 Mg Tablet) 10 mg PO DAILY@1730 [facility] Last Admin: 12/28/24 17:29 Dose: 10 mg Ascorbic Acid (Ascorbic Acid 500 Mg Tablet) 500 mg PO DAILY [facility] Last Admin: 12/29/24 08:53 Dose: 500 mg Clozapine 300 mg/ Clozapine 25 (mg) 325 mg PO DAILY@1999 [facility] Last Admin: 12/28/24 20:24 Dose: 325 mg Heparin Sodium (Porcine) 50 (units/ Sodium Chloride 5 ml) 0 units IVFLUSH TID [facility] Last Admin: 12/29/24 08:53 Dose: 50 unit Divalproex Sodium (Divalproex Sodium Sprinkles 125 Mg Cap.Spr) 1,000 mg PO DAILY@1999 [facility] Last Admin: 12/28/24 20:24 Dose: 1,000 mg Ferrous Sulfate (Ferrous Sulfate 324 Mg Tablet.) 324 mg PO DAILY [facility] Last Admin: 12/29/24 08:53 Dose: 324 mg Finasteride (Finasteride 5 Mg Tablet) 5 mg PO DAILY [facility] Last Admin: 12/29/24 08:52 Dose: 5 mg Hydrocortisone (Hydrocortisone 1 % Ointment 28.35 Gm Tube) 1 appl TOPICAL BID PRN; Protocol PRN Reason: skin irritation Magnesium Hydroxide (Milk Of Magnesia 30 Ml Oral.Susp) 30 ml PO DAILY PRN PRN Reason: Constipation Magnesium Hydroxide (Milk Of Magnesia 30 Ml Oral.Susp) 5 ml PO BEDTIME [facility] Last Admin: 12/28/24 20:24 Dose: 5 ml Memantine (Memantine Hcl 5 Mg Tablet) 5 mg PO DAILY [facility] Last Admin: 12/29/24 08:53 Dose: 5 mg Mirtazapine (Mirtazapine 7.5 Mg Tablet) 22.5 mg PO BEDTIME [facility] Last Admin: 12/28/24 20:25 Dose: 22.5 mg Olanzapine (Olanzapine Odt 10 Mg Tab.Rapdis) 5 mg TRANSLINGU BID PRN PRN Reason: agitation Last Admin: 12/01/24 08:14 Dose: 5 mg Polyethylene Glycol (Polyethylene Glycol 3350 17 Gm Powd.Pack) 17 gm PO DAILY [facility] Last Admin: 12/29/24 08:53 Dose: 17 gm Pramipexole Dihydrochloride (Pramipexole Di-Hcl 0.25 Mg Tablet) 0.5 mg PO TID [facility] Last Admin: 12/29/24 08:52 Dose: 0.5 mg Senna/Docusate Sodium (Sennosides/Docusate Sodium Tablet) 1 tab PO BID PRN PRN Reason: no BM for more than 3days Sertraline HCl (Sertraline Hcl 100 Mg Tablet) 100 mg PO DAILY [facility] Last Admin: 12/29/24 08:52 Dose: 100 mg Tamsulosin HCl (Tamsulosin Hcl 0.4 Mg Capsule) 0.8 mg PO BEDTIME [facility] Last Admin: 12/28/24 20:24 Dose: 0.8 mg Thiamine HCl (Thiamine Hcl 100 Mg Tablet) 100 mg PO DAILY [facility] Last Admin: 12/29/24 08:52 Dose: 100 mg Trazodone HCl (Trazodone Hcl 50 Mg Tablet) 50 mg PO BEDTIME PRN PRN Reason: Insomnia Last Admin: 12/28/24 20:25 Dose: 50 mg Triamcinolone Acetonide (Triamcinolone Acet 0.1 % Cream 15 Gm Tube) 1 appl TOPICAL BID [facility]; Protocol Last Admin: 12/29/24 08:57 Dose: Not Given Allergies Allergies Allergy/AdvReac Type Severity Reaction Status Date / Time No Known Allergies (NKA) Allergy Unknown NONE Verified 10/27/24 19:26 Assessment & Plan Assessment & Plan (1) Schizoaffective disorder: Status: Acute Code(s): F25.9 - Schizoaffective disorder, unspecified (2) Catatonia: Status: Acute Code(s): F06.1 - Catatonic disorder due to known physiological condition (3) Essential hypertension: Status: Acute Code(s): I10 - Essential (primary) hypertension (4) Urinary retention with incomplete bladder emptying: Status: Acute Code(s): R33.9 - Retention of urine, unspecified Plan Schizoaffective DO/Depression with decompensation /Catatonia Treatment per psychiatric team Currently receiving Ketamine treatments. Plan is most likely [facility] ketamine treatments Will need alternative IV access. Patient with poor venous access. Consider PICC line or port. Fungal rash to left buttock Triamcinolone cream BID until clear. Urinary retention/BPH Continue Flomax Monitor for retention. Recent UA negative. Plan Assessment and Plan 59 year-old male with hx of schizoaffective disorder, hypertension, urinary retention, type 2 diabetes, depression recently discharged from [facility] on 10/08/2024 after prolonged admission due to treatment resistant catatonia. He had responded to Ketamine treatment, failed ECT with further complications including aspiration. He presented from nursing home with a change in mental status, he was found wandering in the streets soaked in urine. Depression with decompensation of schizophrenia, catatonia. Status post ketamine treatments, history of ECT with aspiration event Treatment per psych team. Urinary retention/BPH Continue Flomax 0.8mg, Finesteride Dove catheter in place. Follow up urology outpatient Dysphagia Tolerating diet, HOB up. OOB for meals. Mr. Tenorio is a 59 year-old male with hx of schizoaffective disorder recently discharged from [facility] on 10/08/2024 after prologued admission due to treatment resistant catatonia. He had responded to ketamine treatment, failed ECT with further complications including aspiration. He presents with catatonia again including mutism, waxy flexibility. He had one ketamine treatment since he was discharged from the hospital and only partial dose. He was recommended to do weekly ketamine treatments to prevent catatonia. reports he was taking medications as prescribed. Pending clozapine/norclozapine levels. PLAN 1. Admit to [facility], Sect 12b, 1:1 unsteady gait 2. will check KUB for constipation as pt very poor historian but reports no BM in several days. Will also check bladder scan post void to rule out overflow incontinence due to urinary retention since reports increase incontinence in past few days. Note that he was straight cath while in the ED. 3. restart medications- abilify, sertraline, clozapine, low dose depakote 4. obtain collateral information 5. aftercare panning. 10/29/24 Pt to restart ketamine hcp in effect on 12 b at present 10/30/2024 Patient now on CV by healthcare proxy. Ketamine protocol ordered for the morning the that was previously quite helpful in treating patients catatonia has not responded previously well to lorazepam had only intermittent response to ECT here proxy does not wish ECT treatment and did respond to ketamine Medications continue that previously had been helpful on recent discharge 10/31/2024 Patient given 1st ketamine treatment had respondent previously to a series no change this point. Encourage food and fluids face anxious in appearance mostly mute minimally responsive catatonic symptoms continue. Continue Abilify mirtazapine sertraline Clozaril 150 mg Continue ketamine trial 11/01/2024 Patient remains generally unchanged. Continue clozapine sertraline mirtazapine Abilify 5 mg pramipexole 0.5 t.i.d. part of previous catatonia algorithm. Ketamine scheduled when possible had previously been quite helpful was previously on a 2 week 2 times a week schedule Urinary retention positive urine culture case discussed hospitalist service. Hospitalist consult called. Plan for antibiotics and Dove catheter and then trial without the catheter as possible check electrolytes in the morning may benefit from fluid replacement. Maintain head of the bed elevated supportive nursing care plan to reduce possible congestion 11/02: Continue current regimen and plans 11/03: Continue current plans and regimen Reason for continued inpatient stay 11/05/24 Pt with some imp more alert tolerating ketamine tx needs assist eating walking flat catatonic cont pts catatonia protocal 11/06/2024 Continue plan of care ketamine 11/07/2024 some mild improvement noted continue Monday ketamine treatment 11/07/2024 Patient continues to show improvement from initial catatonia more verbal try to evaluate mood and psychosis. Need clarity why patient was unable to complete outpatient ketamine 11/08/2024 Gradual improvement continues patient able to ambulate independently Dove catheter continues continue ketamine clozapine mirtazapine Abilify 11/09 no change in presentation; continue treatment plan 11/10 Been doing much better today, walking around, talking. He agrees and says he is doing all right.' patient remembers that it was hard for him to talk yesterday but unable to say why. 11/11/2024 Patient has had 2 days of marked improvement unable to explain behavior prior to admission refusing intravenous ketamine what exactly happened home and why he has negative connotations unable to give a clear history regarding this appears to be responding well to continue ketamine increase Depakote 11/12/2024 Will try discontinue Dove catheter and voiding trial. Monitor for cycling change patient appears to be shifting out of catatonia much orozco range of affect future oriented. Ketamine held today scheduled for 821. Continue Abilify clozapine Depakote try and determine lowest schedule for ketamine that maintains patient very little to go by to guide this decision 10/2024 Continue plan of care monitor for martha or confusion ketamine in the morning monitor response to discontinuing Dove 11/14/2024 Patient's some increased anxiety status post ketamine denies psychotic symptoms offered option of lorazepam PRN Will need to evaluate ketamine dosing 11/15/2024 Increase Abilify to 10 mg lower sertraline to 50 mg monitor response question patient overstimulated by antidepressants check Depakote level check ammonia 11/16/24 Continue plan of care check level 11/17/24 Continue to monitor 11/18/2024 Ketamine on hold gradually increase clozapine and Depakote check level 11/19/2024 Patient seems improved orozco affect calmer and more cooperative less irritable. Question adverse reaction to higher dose of sertraline now decreased responding to increased Depakote. Ketamine infusion scheduled for 11/2111/20/2024 Patient continues on prior algorithm for catatonia which includes Abilify clozapine mirtazapine clozapine. He is also on Depakote Depakote level 28.6 ammonia level unremarkable could decrease Depakote monitor response to ketamine see if we can try and discontinue currently 1 time a week monitor for any adverse effect 11/21/24 dep level low can increase ammonia ok can try and see if ketamine could be held 11/22/24 will try amantadine for eps monitor response 11/27/2024 Ketamine in the morning will try half dosing continue amantadine for EPS continue clozapine and Depakote 11/28/2024 Continue plan of care catatonia markedly improved coordinate discharge 11/29/24 Pt improved fx less lable cont cloizapine amantadine new for eps 11/30 Checked vitals and grossly WNL Nursing reports that patient was irritable today. On approach patient did not want to talk and said I am all set.. Room smelled of urine 12/01 Is quite irritable; today patient got kicked out of OT group which is a 1st. On approach patient said that he is all right and acknowledges that he got angry but does not want to talk about it -ordered p.r.n. Ativan which is helped in the past following ketamine -ordered UA 12/02/2024 Ketamine ordered for the morning patient again it or irritable reactive aggressive unwilling to process emotions and thinking amantadine discontinued may be contributing to irritability agitation was prescribed for EPS. Patient not stable for discharge needs frequent cuing for food fluids internally preoccupied again isolated 12 03 24 Patient seems somewhat improved with ketamine treatment at full dosing this morning he is able to ambulate sit in the kitchen needs assist with showering psychomotor retarded but improved from yesterday limited verbally flat. Amantadine discontinued limited options for EPS given patient history of urinary retention avoiding Cogentin amantadine may have caused irritability check Depakote and Clozaril level working to discharge to a [facility] nursing home when possible 12/04/24 Patient withdrawn and blunted ketamine against scheduled for tomorrow morning has responded previously unclear why he relapsed again. Increase clozapine will need PICC line or port 12/05/2024 Patient seems improved with to intravenous ketamine treatments this week less deep in the catatonia scale blunted with poverty of speech in minimal recheck activity but definitely significant improvement from days ago some increase range of emotion and less delay in speech Clozapine increased Coordination with [facility] 12/06/2024 Patient agreeable placement of PICC line remains with some catatonic symptoms but generally improving needs help and cuing for basic functioning not overly depressed continue clozapine Jillian Burgerte part of catatonia protocol scheduled ketamine for next week 12/07, 12/08: no change today 12/09/2024 Continue catatonia protocol ketamine for the morning PICC line placed increase mirtazapine consider restart Namenda clozapine has been increased 12/10/2024 Will continue 2 times a week ketamine protocol for catatonia increase sertraline although lorazepam failed previously consider retrial monitor mood 12/11/2024 Ketamine scheduled for 12/12/2024 sertraline increase increase clozapine gradually patient has responded to 2 times a week ketamine previously with a much orozco range of affect and much improvement in mood 12/12/2024 Continue ketamine clozapine increased to 275 improved with ketamine treatment will continue protocol today's the 1st day of any significant improvement need to maintain improvement 12/13/2024 Continue 2 times a week ketamine for 1 more week increase clozapine to 300 mg 12/14 irritable today, refusing to answer questions by staff; does not want to engage. 12/15 princess, friendler; says he's good and that medications are fine the way they are 12/16 Patient's ANC has decreased to 3.2 will repeat patient still with restricted affect needs cuing for most behavior does eat and drink Limited range of affect increase mirtazapine to 30 mg scheduled for ketamine 923 PICC line has been placed 12/17/[address] Reinaldo Munoz mood flat with some periods of increased range of affect poverty of content continues some internal preoccupation patient on sertraline 100 mirtazapine 30 Abilify 10 clozapine 300 ketamine b.i.d. trying to see if there is setting with [facility] meeting organized 12/18: Continue current treatment regimen. 12/19/24 still poor adls disheveled poor grooming bathing inc range of affect 12/20/24 coordinate with [facility] d/c planning very limited range affect clear partial response to ketamine 12/23/24 Pt has been somewhat improved started on namnda to help boast 12/25/2024 Continue Namenda sertraline mirtazapine ketamine infusion tomorrow will then taper 12/28/2024: No changes to plan. 12/29/2024: No changes. Hopeful to start disposition planning with primary treatment team Reason for continued inpatient stay Substantial Risk for: rapid decompensation Time Spent With Patient Time: Total time managing care of this patient today ____ minutes.
[2024-12-29] MEDS: Milk of Magnesia 30 ML ORAL.SUSP 5 ML PO (19:58)
[2024-12-29 20:00] VITALS: BP 141/68; PULSE 82; RESP 16; TEMP 36.5; O2SAT 97
[2024-12-29] MEDS: Divalproex Sodium Sprinkles 125 MG CAP.DR.SPR 1000 MG PO (20:00)
[2024-12-29] MEDS: cloZAPine 300 MG, cloZAPine 25 MG 325 MG PO (20:02)
[2024-12-30 08:00] VITALS: BP 132/68; PULSE 80; RESP 18; TEMP 36.4; O2SAT 98
--- NOTE | 2024-12-30 08:37 | P.PNPSI_ITS ---
Subjective Subjective Date of Service: 12/30/24 Reason For Visit: Catatonia Subjective Notes: Conditional Voluntary Interim History: Patient seen psychiatric follow-up eating and drinking okay engaged in the milieu. Medication Compliance: Yes Mental Status Exam Mental Status Exam Narrative: Appearance: Casually dressed, adequate hygiene Behavior: Calm and cooperative throughout the interview. Guarded. Eye contact is appropriate, and there are no signs of psychomotor agitation or retardation Speech: Normal volume and prosody Thought process: Logical and goal-directed Thought content: Future oriented no self-harming thoughts Mood: Still good Affect: much brighter SI:denies HI:denies VH/AH:none Delusions: None Insight/judgment: Fair insight and judgment Memory/cog: Alert, oriented to person, place, and time. grossly intact to conversational testing Patient Appearance: Appropriate Diagnostics Vital Signs (24Hr): Vital Signs - 24 hr 12/29/24 20:00 Temperature 97.7 F Pulse Rate 82 Respiratory Rate 16 Blood Pressure 141/68 H Pulse Oximetry 97 Oxygen Delivery Method Room Air BMI result Body Mass Index 29.6 Labs 12/17/24 15:52 11/19/24 10:54 Imaging Radiology Impressions: ITS Impressions KUB X-Ray 10/28/24 16:45 IMPRESSION: Again seen is a large amount of stool throughout the colon and rectum. Electronically signed by: Jose J Gonzalez MD 10/28/2024 05:20 PM EDT RP PICC Line Insertion 12/06/24 14:58 IMPRESSION: Exchange of midline to a 5 fr 55 cm, dual lumen power PICC PLAN: -The catheter may be used immediately. This procedure was performed by Doug Contreras NP, and directly supervised by Aly Carr M.D. Electronically signed by: Aly Carr MD 12/12/2024 11:36 AM EDT RP Workstation: [id number] Medications Medications Current Medications Acetaminophen (Acetaminophen 325 Mg Tablet) 650 mg PO Q6H PRN PRN Reason: Headache/Pain, Scale 1-10 Last Admin: 11/01/24 20:01 Dose: 650 mg Al Hydroxide/Mg Hydroxide (Magnesium Hydrox/Alum Hydrox 30 Ml Oral.Susp) 30 ml PO Q6H PRN PRN Reason: Heartburn/Nausea Aripiprazole (Aripiprazole 10 Mg Tablet) 10 mg PO DAILY@1730 [facility] Last Admin: 12/29/24 16:44 Dose: 10 mg Ascorbic Acid (Ascorbic Acid 500 Mg Tablet) 500 mg PO DAILY [facility] Last Admin: 12/29/24 08:53 Dose: 500 mg Clozapine 300 mg/ Clozapine 25 (mg) 325 mg PO DAILY@1999 [facility] Last Admin: 12/29/24 20:02 Dose: 325 mg Heparin Sodium (Porcine) 50 (units/ Sodium Chloride 5 ml) 0 units IVFLUSH TID [facility] Last Admin: 12/29/24 20:05 Dose: 5 unit Divalproex Sodium (Divalproex Sodium Sprinkles 125 Mg Cap.Dr.Spr) 1,000 mg PO DAILY@1999 [facility] Last Admin: 12/29/24 20:00 Dose: 1,000 mg Ferrous Sulfate (Ferrous Sulfate 324 Mg Tablet.Dr) 324 mg PO DAILY [facility] Last Admin: 12/29/24 08:53 Dose: 324 mg Finasteride (Finasteride 5 Mg Tablet) 5 mg PO DAILY [facility] Last Admin: 12/29/24 08:52 Dose: 5 mg Hydrocortisone (Hydrocortisone 1 % Ointment 28.35 Gm Tube) 1 appl TOPICAL BID PRN; Protocol PRN Reason: skin irritation Magnesium Hydroxide (Milk Of Magnesia 30 Ml Oral.Susp) 30 ml PO DAILY PRN PRN Reason: Constipation Magnesium Hydroxide (Milk Of Magnesia 30 Ml Oral.Susp) 5 ml PO BEDTIME [facility] Last Admin: 12/29/24 19:58 Dose: 5 ml Memantine (Memantine Hcl 5 Mg Tablet) 5 mg PO DAILY [facility] Last Admin: 12/29/24 08:53 Dose: 5 mg Mirtazapine (Mirtazapine 7.5 Mg Tablet) 22.5 mg PO BEDTIME [facility] Last Admin: 12/29/24 20:01 Dose: 22.5 mg Olanzapine (Olanzapine Odt 10 Mg Tab.Rapdis) 5 mg TRANSLINGU BID PRN PRN Reason: agitation Last Admin: 12/01/24 08:14 Dose: 5 mg Polyethylene Glycol (Polyethylene Glycol 3350 17 Gm Powd.Pack) 17 gm PO DAILY [facility] Last Admin: 12/29/24 08:53 Dose: 17 gm Pramipexole Dihydrochloride (Pramipexole Di-Hcl 0.25 Mg Tablet) 0.5 mg PO TID [facility] Last Admin: 12/29/24 20:01 Dose: 0.5 mg Senna/Docusate Sodium (Sennosides/Docusate Sodium Tablet) 1 tab PO BID PRN PRN Reason: no BM for more than 3days Sertraline HCl (Sertraline Hcl 100 Mg Tablet) 100 mg PO DAILY [facility] Last Admin: 12/29/24 08:52 Dose: 100 mg Tamsulosin HCl (Tamsulosin Hcl 0.4 Mg Capsule) 0.8 mg PO BEDTIME [facility] Last Admin: 12/29/24 20:02 Dose: 0.8 mg Thiamine HCl (Thiamine Hcl 100 Mg Tablet) 100 mg PO DAILY [facility] Last Admin: 12/29/24 08:52 Dose: 100 mg Trazodone HCl (Trazodone Hcl 50 Mg Tablet) 50 mg PO BEDTIME PRN PRN Reason: Insomnia Last Admin: 12/28/24 20:25 Dose: 50 mg Triamcinolone Acetonide (Triamcinolone Acet 0.1 % Cream 15 Gm Tube) 1 appl TOPICAL BID [facility]; Protocol Last Admin: 12/29/24 20:08 Dose: Not Given Allergies Allergies Allergy/AdvReac Type Severity Reaction Status Date / Time No Known Allergies (NKA) Allergy Unknown NONE Verified 10/27/24 19:26 Assessment & Plan Assessment & Plan (1) Schizoaffective disorder: Status: Acute Code(s): F25.9 - Schizoaffective disorder, unspecified (2) Catatonia: Status: Acute Code(s): F06.1 - Catatonic disorder due to known physiological condition (3) Essential hypertension: Status: Acute Code(s): I10 - Essential (primary) hypertension (4) Urinary retention with incomplete bladder emptying: Status: Acute Code(s): R33.9 - Retention of urine, unspecified Plan Schizoaffective DO/Depression with decompensation /Catatonia Treatment per psychiatric team Currently receiving Ketamine treatments. Plan is most likely half-way ketamine treatments Will need alternative IV access. Patient with poor venous access. Consider PICC line or port. Fungal rash to left buttock Triamcinolone cream BID until clear. Urinary retention/BPH Continue Flomax Monitor for retention. Recent UA negative. Plan Assessment and Plan 59 year-old male with hx of schizoaffective disorder, hypertension, urinary retention, type 2 diabetes, depression recently discharged from on 10/08/2024 after prolonged admission due to treatment resistant catatonia. He had responded to Ketamine treatment, failed ECT with further complications including aspiration. He presented from long term with a change in mental status, he was found wandering in the streets soaked in urine. Depression with decompensation of schizophrenia, catatonia. Status post ketamine treatments, history of ECT with aspiration event Treatment per psych team. Urinary retention/BPH Continue Flomax 0.8mg, Finesteride Dove catheter in place. Follow up urology outpatient Dysphagia Tolerating diet, HOB up. OOB for meals. Mr. 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 He had responded to ketamine treatment, failed ECT with further complications including aspiration. He presents with catatonia again including mutism, waxy flexibility. He had one ketamine treatment since he was discharged from the hospital and only partial dose. He was recommended to do weekly ketamine treatments to prevent catatonia. reports he was taking medications as prescribed. Pending clozapine/norclozapine levels. PLAN 1. Admit to S1, Sect 12b, 1:1 unsteady gait 2. will check KUB for constipation as pt very poor historian but reports no BM in several days. Will also check bladder scan post void to rule out overflow incontinence due to urinary retention since reports increase incontinence in past few days. Note that he was straight cath while in the ED. 3. restart medications- abilify, sertraline, clozapine, low dose depakote 4. obtain collateral information 5. aftercare panning. 10/29/24 Pt to restart ketamine hcp in effect on 12 b at present 10/30/2024 Patient now on CV by healthcare proxy. Ketamine protocol ordered for the morning the that was previously quite helpful in treating patients catatonia has not responded previously well to lorazepam had only intermittent response to ECT here proxy does not wish ECT treatment and did respond to ketamine Medications continue that previously had been helpful on recent discharge 10/31/2024 Patient given 1st ketamine treatment had respondent previously to a series no change this point. Encourage food and fluids face anxious in appearance mostly mute minimally responsive catatonic symptoms continue. Continue Abilify mirtazapine sertraline Clozaril 150 mg Continue ketamine trial 11/01/2024 Patient remains generally unchanged. Continue clozapine sertraline mirtazapine Abilify 5 mg pramipexole 0.5 t.i.d. part of previous catatonia algorithm. Ketamine scheduled when possible had previously been quite helpful was previously on a 2 week 2 times a week schedule Urinary retention positive urine culture case discussed hospitalist service. Hospitalist consult called. Plan for antibiotics and Dove catheter and then trial without the catheter as possible check electrolytes in the morning may benefit from fluid replacement. Maintain head of the bed elevated supportive nursing care plan to reduce possible congestion 11/02: Continue current regimen and plans 11/03: Continue current plans and regimen Reason for continued inpatient stay 11/05/24 Pt with some imp more alert tolerating ketamine tx needs assist eating walking flat catatonic cont pts catatonia protocal 11/06/2024 Continue plan of care ketamine 11/07/2024 some mild improvement noted continue Monday ketamine treatment 11/07/2024 Patient continues to show improvement from initial catatonia more verbal try to evaluate mood and psychosis. Need clarity why patient was unable to complete outpatient ketamine 11/08/2024 Gradual improvement continues patient able to ambulate independently Dove catheter continues continue ketamine clozapine mirtazapine Abilify 11/09 no change in presentation; continue treatment plan 11/10 Been doing much better today, walking around, talking. He agrees and says he is doing all right.' patient remembers that it was hard for him to talk yesterday but unable to say why. 11/11/2024 Patient has had 2 days of marked improvement unable to explain behavior prior to admission refusing intravenous ketamine what exactly happened home and why he has negative connotations unable to give a clear history regarding this appears to be responding well to continue ketamine increase Depakote 11/12/2024 Will try discontinue Dove catheter and voiding trial. Monitor for cycling change patient appears to be shifting out of catatonia much orozco range of affect future oriented. Ketamine held today scheduled for 821. Continue Abilify clozapine Depakote try and determine lowest schedule for ketamine that maintains patient very little to go by to guide this decision 10/2024 Continue plan of care monitor for martha or confusion ketamine in the morning monitor response to discontinuing Dove 11/14/2024 Patient's some increased anxiety status post ketamine denies psychotic symptoms offered option of lorazepam PRN Will need to evaluate ketamine dosing 11/15/2024 Increase Abilify to 10 mg lower sertraline to 50 mg monitor response question patient overstimulated by antidepressants check Depakote level check ammonia 11/16/24 Continue plan of care check level 11/17/24 Continue to monitor 11/18/2024 Ketamine on hold gradually increase clozapine and Depakote check level 11/19/2024 Patient seems improved orozco affect calmer and more cooperative less irritable. Question adverse reaction to higher dose of sertraline now decreased responding to increased Depakote. Ketamine infusion scheduled for 11/2111/20/2024 Patient continues on prior algorithm for catatonia which includes Abilify clozapine mirtazapine clozapine. He is also on Depakote Depakote level 28.6 ammonia level unremarkable could decrease Depakote monitor response to ketamine see if we can try and discontinue currently 1 time a week monitor for any adverse effect 11/21/24 dep level low can increase ammonia ok can try and see if ketamine could be held 11/22/24 will try amantadine for eps monitor response 11/27/2024 Ketamine in the morning will try half dosing continue amantadine for EPS continue clozapine and Depakote 11/28/2024 Continue plan of care catatonia markedly improved coordinate discharge 11/29/24 Pt improved fx less lable cont cloizapine amantadine new for eps 11/30 Checked vitals and grossly WNL Nursing reports that patient was irritable today. On approach patient did not want to talk and said I am all set.. Room smelled of urine 12/01 Is quite irritable; today patient got kicked out of OT group which is a 1st. On approach patient said that he is all right and acknowledges that he got angry but does not want to talk about it -ordered p.r.n. Ativan which is helped in the past following ketamine -ordered UA 12/02/2024 Ketamine ordered for the morning patient again it or irritable reactive aggressive unwilling to process emotions and thinking amantadine discontinued may be contributing to irritability agitation was prescribed for EPS. Patient not stable for discharge needs frequent cuing for food fluids internally preoccupied again isolated 12 03 24 Patient seems somewhat improved with ketamine treatment at full dosing this morning he is able to ambulate sit in the kitchen needs assist with showering psychomotor retarded but improved from yesterday limited verbally flat. Amantadine discontinued limited options for EPS given patient history of urinary retention avoiding Cogentin amantadine may have caused irritability check Depakote and Clozaril level working to discharge to a [facility] long term when possible 12/04/24 Patient withdrawn and blunted ketamine against scheduled for tomorrow morning has responded previously unclear why he relapsed again. Increase clozapine will need PICC line or port 12/05/2024 Patient seems improved with to intravenous ketamine treatments this week less deep in the catatonia scale blunted with poverty of speech in minimal recheck activity but definitely significant improvement from days ago some increase range of emotion and less delay in speech Clozapine increased Coordination with [facility] 12/06/2024 Patient agreeable placement of PICC line remains with some catatonic symptoms but generally improving needs help and cuing for basic functioning not overly depressed continue clozapine Abilify Depakote part of catatonia protocol scheduled ketamine for next week 12/07, 12/08: no change today 12/09/2024 Continue catatonia protocol ketamine for the morning PICC line placed increase mirtazapine consider restart Namenda clozapine has been increased 12/10/2024 Will continue 2 times a week ketamine protocol for catatonia increase sertraline although lorazepam failed previously consider retrial monitor mood 12/11/2024 Ketamine scheduled for 12/12/2024 sertraline increase increase clozapine gradually patient has responded to 2 times a week ketamine previously with a much orozco range of affect and much improvement in mood 12/12/2024 Continue ketamine clozapine increased to 275 improved with ketamine treatment will continue protocol today's the 1st day of any significant improvement need to maintain improvement 12/13/2024 Continue 2 times a week ketamine for 1 more week increase clozapine to 300 mg 12/14 irritable today, refusing to answer questions by staff; does not want to engage. 12/15 brighter, friendler; says he's good and that medications are fine the way they are 12/16 Patient's ANC has decreased to 3.2 will repeat patient still with restricted affect needs cuing for most behavior does eat and drink Limited range of affect increase mirtazapine to 30 mg scheduled for ketamine 923 PICC line has been placed 12/17/[address] Reinaldo Munoz mood flat with some periods of increased range of affect poverty of content continues some internal preoccupation patient on sertraline 100 mirtazapine 30 Abilify 10 clozapine 300 ketamine b.i.d. trying to see if there is setting with [facility] meeting organized 12/18: Continue current treatment regimen. 12/19/24 still poor adls disheveled poor grooming bathing inc range of affect 12/20/24 coordinate with chd d/c planning very limited range affect clear partial response to ketamine 12/23/24 Pt has been somewhat improved started on namnda to help boast 12/25/2024 Continue Namenda sertraline mirtazapine ketamine infusion tomorrow will then taper 12/28/2024: No changes to plan. 12/29/2024: No changes. Hopeful to start disposition planning with primary treatment team 12/30/2024 Patient scheduled for ketamine tomorrow morning. Trying to coordinate with [facility] see if there is any way patient can continue as an outpatient Reason for continued inpatient stay Substantial Risk for: inability to function and rapid decompensation Time Spent With Patient Time: Total time managing care of this patient today ____ minutes.
[2024-12-30] MEDS: Ferrous Sulfate 324 MG TABLET.DR PO (08:48)
[2024-12-30] MEDS: Heparin Sodium,Porcine Flush 50 UNITS, 0.9 % Sodium Chloride Flush 5 ML IVFLUSH ×3 (08:48→21:00)
[2024-12-30 20:00] VITALS: BP 134/71; PULSE 16; RESP 16; TEMP 36.4; O2SAT 100
[2024-12-30] MEDS: Milk of Magnesia 30 ML ORAL.SUSP 5 ML PO (20:55)
[2024-12-30] MEDS: Divalproex Sodium Sprinkles 125 MG CAP.DR.SPR 1000 MG PO (20:56)
[2024-12-30] MEDS: cloZAPine 300 MG, cloZAPine 25 MG 325 MG PO (20:58)
[2024-12-31] VITALS (10 sets, daily range): BP systolic 119–136; BP diastolic 66–76; PULSE 67–75; RESP 16–18; TEMP 36.2–36.4; O2SAT 95–99
[2024-12-31 08:18] LABS: Neut%MD 62.9 %; WBCANC 4.8 X10*3/uL
[2024-12-31] MEDS: Heparin Sodium,Porcine Flush 50 UNITS, 0.9 % Sodium Chloride Flush 5 ML IVFLUSH (09:57)
[2024-12-31] MEDS: Ferrous Sulfate 324 MG TABLET.DR PO (10:00)
[2024-12-31] MEDS: Milk of Magnesia 30 ML ORAL.SUSP 5 ML PO (20:25)
[2024-12-31] MEDS: Divalproex Sodium Sprinkles 125 MG CAP.DR.SPR 1000 MG PO (20:26)
[2024-12-31] MEDS: cloZAPine 300 MG, cloZAPine 25 MG 325 MG PO (20:26)
[2025-01-01 08:00] VITALS: BP 134/63; PULSE 88; RESP 17; TEMP 36.3; O2SAT 97
[2025-01-01] MEDS: Ferrous Sulfate 324 MG TABLET.DR PO (08:17)
[2025-01-01] MEDS: Hydrocortisone 1 % Ointment 28.35 GM TUBE 1 APPL TOPICAL (08:18)
--- NOTE | 2025-01-01 09:40 | P.DS_ITS ---
DS: Providers Provider Date of Service: 01/01/25 Date of admission: 10/28/24 12:00 Date of discharge: 01/01/25 Primary care physician: Unknown Physician Admitting clinician: Dahiana Haney Attending physician on admission: Steven Huerta Consults: 11/01/24 17:38 Consult to Hospitalist Routine Comment: Consulting Provider: [facility] Reason For Exam: urinary retention ? uti 12/01/24 18:38 Consult to Hospitalist Routine Comment: Consulting Provider: [facility] Reason For Exam: Buttock rash. ? Fungal as per nursing DS: Diagnosis Discharge Diagnosis (1) Schizoaffective disorder: Status: Acute (2) Catatonia: Status: Acute (3) Essential hypertension: Status: Acute (4) Urinary retention with incomplete bladder emptying: Status: Acute DS: Medications Discharge Medications Home Medications: Previous Rx's ?Medication ?Instructions ?Recorded ferrous sulfate 324 mg (65 mg 324 mg PO DAILY #30 tabs 10/09/24 iron) tablet,delayed release magnesium hydroxide 400 mg/5 mL 5 ml PO BEDTIME #500 m L 10/21/24 oral suspension (Milk of Magnesia) acetaminophen 325 mg tablet 650 mg (2 x 325 mg) PO Q6H PRN 12/31/24 Headache/Pain, Scale 1-10 30 days #60 tabs aripiprazole 10 mg tablet 10 mg PO DAILY@1729 30 days #30 12/31/24 tabs ascorbic acid (vitamin C) 500 mg 500 mg PO DAILY 30 da ys #30 tabs 12/31/24 tablet (Vitamin C) clozapine 100 mg tablet 300 mg (3 x 100 mg) PO DAILY @199912/31/24 30 days #90 tabs clozapine 25 mg tablet 25 mg PO DAILY@1999 30 days #30 12/31/24 tabs divalproex 250 mg tablet,delayed 1,000 mg (4 x 250 mg) PO 12/31/24 release DAILY@1999 30 days #120 tabs finasteride 5 mg tablet 5 mg PO DAILY 30 days #30 ta bs 12/31/24 memantine 5 mg tablet 5 mg PO DAILY 30 days #30 ta bs 12/31/24 mirtazapine 7.5 mg tablet 22.5 mg (3 x 7.5 mg) PO BEDT RAYMOND 30 12/31/24 days #90 tabs olanzapine 10 mg disintegrating 5 mg (1/2 x 10 mg) tra nslingual 12/31/24 tablet BID PRN agitation 30 days #3 0 tabs polyethylene glycol 3350 17 gram 17 g PO DAILY 30 days #30 packets 12/31/24 oral powder packet pramipexole 0.5 mg tablet 0.5 mg PO TID 30 days #90 ta bs 12/31/24 sennosides 8.6 mg-docusate sodium 1 tab-cap PO BID PRN no BM for 12/31/24 50 mg tablet (Senna with Docusate more than 3days 30 d ays #60 tabs Sodium) sertraline 100 mg tablet 100 mg PO DAILY 30 days #30 tabs 12/31/24 tamsulosin 0.4 mg capsule 0.8 mg (2 x 0.4 mg) PO BEDTI ME 30 12/31/24 days #60 caps thiamine mononitrate (vit B1) 100 100 mg PO DAILY 30 d ays #30 tabs 12/31/24 mg tablet trazodone 50 mg tablet 50 mg PO BEDTIME PRN Insomni a 30 12/31/24 days #30 tabs Mental Status Exam Mental Status Exam Narrative: Appearance: Casually dressed, ok hygiene mildly disheveled Behavior: cooperative Speech: Normal volume and prosody Thought process: Logical and goal-directed Thought content: Future oriented no self-harming thoughts asking about treatment outpt Mood:ok Affect: much brighter SI:denies HI:denies VH/AH:none Delusions: None Insight/judgment: Fair insight and judgment Memory/cog: Alert, oriented to person, place, and time. grossly intact to conversational testing Patient Appearance: Appropriate Data Data Completed and Pending Completed studies during hospitalization [Text1]: 12/22/24 12/31/24 09:34 08:09 Absolute Neuts (auto) 3.0 Clozapine 370 Norclozapine 125 11/01/24 10:10 Urine Catheterized - Straight Catheter Urine Culture - Final Staphylococcus epidermidis 10/27/24 20:48 Blood - Venous Blood Culture - Final No growth after 5 days. 10/27/24 20:24 Blood - Venous Blood Culture - Final No growth after 5 days. Imaging Diagnostic Imaging Impressions KUB X-Ray 10/28/24 16:45 IMPRESSION: Again seen is a large amount of stool throughout the colon and rectum. Electronically signed by: Jose J Gonzalez MD 10/28/2024 05:20 PM EDT RP PICC Line Insertion 12/06/24 14:58 IMPRESSION: Exchange of midline to a 5 fr 55 cm, dual lumen power PICC PLAN: -The catheter may be used immediately. This procedure was performed by Doug Contreras NP, and directly supervised by Aly Carr M.D. Electronically signed by: Aly Carr MD 12/12/2024 11:36 AM EDT RP Workstation: [id number] Additional Comments Additional comments: anc has DS: Summary Hospital Course Hospital Course: Psychiatry Admission Note (In) Signed Patient: Benjamin Tenorio MR#: [id number] : 1965 Acct:[id number] Age/Sex: 59 / M Loc: [facility] [place] 175-[address]: Dahiana Haney NP cc: Steven Huerta MD; Dahiana Haney NP~ HPI Date of Service: 10/28/24 Chief Complaint: Catatonia Sources of Information: patient interviewed, chart reviewed and crisis/core team assessment reviewed HPI Subjective Notes: Section 12B Healthcare Proxy: Yes Narrative: Mr. Tenorio is a 59 year-old male with a hx of schizoaffective disorder who was recently discharged from on 10/08/2024 after prolonged admission for catatonia. He was brought via EMS from prison from [place] due to patient presenting as less talkative, had left the prison unexpectedly while meeting with his father and found wet with urine. Pertient labs completed in the ED include CBC without leukocytosis, normocytic anemia (stable and improved H&H), CMP with no electrolyte abnormalities but noted elevation in BUN/Cr which improved after liter of IV fluids. BUN 33, Cr. 1.39, creatinine clearance 64.9, LFT wnl. ammonia 37. UA without s/s of UTI, mostly unremarkable. Utox negative. Clozapine/norclozapine levels pending. Depakote level 12.5. On the unit, pt is laying in bed. Noted right arm dyskinesia and involuntary jaw/perioral movements. He is staring. His speech with significant delay in response. He reports the police was after him and they wanted to arrest him. When asked to elaborate, pt was than mostly staring. Some waxy flexibility noted. He is also mildly sweating. Per crisis report, Alex from had reported pt less talkative and less interactive in past few days. Since discharge on 10/08/2024, he only had one ketamine treatment on 10/14 but only had partial dose as initially patient was refusing to get treatment. He declined ketamine treatment the week of 10/21, they were hoping to bring him this week. Past Psychiatric History: Inpatient: M5 04/17/2023-05/02/2023; M3 03/06/2023-02/2023; 01/04/2023-02/02/2023; 06/13/2022-07/19/2022; S1 12/2023; 04/2024; S1 on 07/2024-10/08/2024 (after prolonged admission for catatonia) OP: [facility] Lexi Barajas Past medication trials: clozaril, ativan, sertraline, olanzapine, Ketamine (for catatonia) Medical Evaluation Reviewed: Yes [facility] Medical History Tardive dyskinesia Hospital discharge follow-up Mild sleep apnea Nocturnal hypoxia Routine medical exam Joint inflammation of right hand and wrist Status post fall Adult general medical exam Screening for colon cancer Screening for prostate cancer Cough BPH (benign prostatic hyperplasia) Surgical History History of colonoscopy (~06/15/21) History of tooth extraction History of root canal procedure Family History: none Social History: never . Currently lives in from [facility]. Substance History: none Trauma History: unknown Diagnostics Vital Signs (24Hr): Vital Signs - 24 hr 10/27/24 19:21 10/27/24 19:22 10/27/24 22:31 Temperature 98.9 F 98.9 F 98.2 F Pulse Rate 93 93 87 Respiratory Rate 18 18 15 Blood Pressure 144/77 H 144/77 H 138/79 Pulse Oximetry 93 93 94 Oxygen Delivery Method Room Air Room Air Room Air 10/28/24 01:55 10/28/24 07:58 10/28/24 14:20 Temperature 98.4 F 98.2 F Pulse Rate 78 81 88 Respiratory Rate 11 L 16 16 Blood Pressure 139/79 135/57 L 134/79 Pulse Oximetry 93 96 96 Oxygen Delivery Method Room Air Room Air Room Air BMI result Body Mass Index 27.3 Labs 10/27/24 20:24 document embedded image 10/27/24 23:54 document embedded image Labs: Laboratory Results - last 48 hr 10/27/24 10/27/24 10/27/24 20:24 20:47 20:48 WBC 7.3 RBC 4.51 L Hgb 13.1 L Hct 39.2 L MCV 86.9 MCH 29.0 MCHC 33.4 RDW 13.7 Plt Count 178 MPV 11.0 Immature Gran % (Auto) 0.3 Neut % (Auto) 75.4 H Lymph % (Auto) 14.8 L [place] % (Auto) 9.2 Eos % (Auto) 0.0 Baso % (Auto) 0.3 Lymph # (Auto) 1.1 L [place] # (Auto) 0.7 Eos # (Auto) 0.0 Baso # (Auto) 0.0 Abs Immat Gran (auto) 0.02 Absolute Neuts (auto) 5.5 Absolute Nucleated RBC 0.000 Nucleated RBC % (auto) 0.0 Sodium 145 Potassium 4.6 Chloride 109 H Carbon Dioxide 29 Anion Gap 12 BUN 35 H Creatinine 1.56 H Estim Creat Clear Calc 57.8 Estimated GFR 45 POC Glucose 116 H Random Glucose 112 Lactic Acid 0.8 Calcium 9.3 Total Bilirubin 0.2 AST 18 ALT 20 Alkaline Phosphatase 61 Ammonia Troponin I High Sens 4.4 Total Protein 7.1 Albumin 4.3 Urine Color Yellow Urine Appearance Clear Urine pH 6.5 Ur Specific [place] 1.015 Urine Protein Negative Urine Glucose (UA) Negative Urine Ketones Negative Urine Blood Negative Urine Nitrite Negative Ur Leukocyte Esterase Negative Salicylates < 5.0 L Urine Opiates Screen Ur Buprenorphine Scrn Ur Oxycodone Screen Urine Methadone Screen Urine Fentanyl Screen Acetaminophen < 3 Ur Barbiturates Screen Valproic Acid Ur Phencyclidine Scrn Ur Amphetamines Screen U Benzodiazepines Scrn Urine Cocaine Screen U Marijuana (THC) Screen Ethyl Alcohol < 10 10/27/24 10/27/24 10/27/24 20:49 23:22 23:54 WBC RBC Hgb Hct MCV MCH MCHC RDW Plt Count MPV Immature Gran % (Auto) Neut % (Auto) Lymph % (Auto) [place] % (Auto) Eos % (Auto) Baso % (Auto) Lymph # (Auto) [place] # (Auto) Eos # (Auto) Baso # (Auto) Abs Immat Gran (auto) Absolute Neuts (auto) Absolute Nucleated RBC Nucleated RBC % (auto) Sodium 145 Potassium 4.5 Chloride 111 H Carbon Dioxide 25 Anion Gap 14 BUN 33 H Creatinine 1.39 Estim Creat Clear Calc 64.9 Estimated GFR 52 POC Glucose 50 L* Random Glucose 106 Lactic Acid Calcium 8.8 Total Bilirubin AST ALT Alkaline Phosphatase Ammonia 37 Troponin I High Sens Total Protein Albumin Urine Color Urine Appearance Urine pH Ur Specific [place] Urine Protein Urine Glucose (UA) Urine Ketones Urine Blood Urine Nitrite Ur Leukocyte Esterase Salicylates Urine Opiates Screen Not Detected Ur Buprenorphine Scrn Not Detected Ur Oxycodone Screen Not Detected Urine Methadone Screen Not Detected Urine Fentanyl Screen Not Detected Acetaminophen Ur Barbiturates Screen Not Detected Valproic Acid < 12.5 L Ur Phencyclidine Scrn Not Detected Ur Amphetamines Screen Not Detected U Benzodiazepines Scrn Not Detected Urine Cocaine Screen Not Detected U Marijuana (THC) Screen Not Detected Ethyl Alcohol Meds/Allergies Allergies Allergies Allergy/AdvReac Type Severity Reaction Status Date / Time No Known Allergies (NKA) Allergy Unknown NONE Verified 10/27/24 19:26 Mental Status Exam Mental Status Exam Narrative: Appearance: wearing hospital gown, very malodorous, in NAD Behavior: minimally engaging, staring Psychomotor: perioral/jaw involuntary movement, dyskinesia right arm. Speech: mumbles, delay response, soft tone, minimally spontaneous. TP: mostly mute TC:unable to assess Mood:unable to assess Affect: constricted SI: none HI: none VH/AH: may be internally preoccupied but difficult to assess Delusions: police was trying to arrest me Insight/judgment: impaired x 2. Memory/cog: alert, oriented to place, year not situation Assessment & Plan Assessment & Plan (1) Schizoaffective disorder: Status: Acute Code(s): F25.9 - Schizoaffective disorder, unspecified (2) Catatonia: Status: Acute Code(s): F06.1 - Catatonic disorder due to known physiological condition Plan Mr. 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 He had responded to ketamine treatment, failed ECT with further complications including aspiration. He presents with catatonia again including mutism, waxy flexibility. He had one ketamine treatment since he was discharged from the hospital and only partial dose. He was recommended to do weekly ketamine treatments to prevent catatonia. reports he was taking medications as prescribed. Pending clozapine/norclozapine levels. PLAN 1. Admit to S1, Sect 12b, 1:1 unsteady gait 2. will check KUB for constipation as pt very poor historian but reports no BM in several days. Will also check bladder scan post void to rule out overflow incontinence due to urinary retention since GH reports increase incontinence in past few days. Note that he was straight cath while in the ED. 3. restart medications- abilify, sertraline, clozapine, low dose depakote 4. obtain collateral information 5. aftercare panning. Patient educated on: diagnosis and medication risk/benefits Reason for continued inpatient stay Substantial Risk for: inability to function Statement Statement: I have reviewed the history and physical and performed a pertinent examination on my patient. No changes have occurred unless specified. If the History and Physical was not performed prior to admission, the Hospitalist's service will be consulted for completing the admission physical. Time Spent With Patient Time: Total time managing care of this patient today ____ minutes. Hospital course Patient was admitted on a conditional voluntary signed by his healthcare proxy. Patient has relapsed with recurrent catatonia in appears at this point to basically have chronic recurrent chronic catatonia that had stopped responding to ECT. There was an attempt to do intravenous ketamine outpatient but the patient was not comfortable with unfamiliar surroundings and was unable to complete the treatment. Mr. Tenorio is a 59 year-old male with hx of schizoaffective disorder recently discharged from S1 on 10/08/2024 after prologued admission due to treatment resistant catatonia. He had responded to ketamine treatment, failed ECT with further complications including aspiration. He presents with catatonia again including mutism, waxy flexibility. He had one ketamine treatment since he was discharged from the hospital and only partial dose. He was recommended to do weekly ketamine treatments to prevent catatonia. reports he was taking medications as prescribed. Pending clozapine/norclozapine levels. PLAN 1. Admit to S1, Sect 12b, 1:1 unsteady gait 2. will check KUB for constipation as pt very poor historian but reports no BM in several days. Will also check bladder scan post void to rule out overflow incontinence due to urinary retention since reports increase incontinence in past few days. Note that he was straight cath while in the ED. 3. restart medications- abilify, sertraline, clozapine, low dose depakote 4. obtain collateral information 5. aftercare panning. 10/29/24 Pt to restart ketamine hcp in effect on 12 b at present 10/30/2024 Patient now on CV by healthcare proxy. Ketamine protocol ordered for the morning the that was previously quite helpful in treating patients catatonia has not responded previously well to lorazepam had only intermittent response to ECT here proxy does not wish ECT treatment and did respond to ketamine Medications continue that previously had been helpful on recent discharge 10/31/2024 Patient given 1st ketamine treatment had respondent previously to a series no change this point. Encourage food and fluids face anxious in appearance mostly mute minimally responsive catatonic symptoms continue. Continue Abilify mirtazapine sertraline Clozaril 150 mg Continue ketamine trial 11/01/2024 Patient remains generally unchanged. Continue clozapine sertraline mirtazapine Abilify 5 mg pramipexole 0.5 t.i.d. part of previous catatonia algorithm. Ketamine scheduled when possible had previously been quite helpful was previously on a 2 week 2 times a week schedule Urinary retention positive urine culture case discussed hospitalist service. Hospitalist consult called. Plan for antibiotics and Dove catheter and then trial without the catheter as possible check electrolytes in the morning may benefit from fluid replacement. Maintain head of the bed elevated supportive nursing care plan to reduce possible congestion 11/02: Continue current regimen and plans 11/03: Continue current plans and regimen Reason for continued inpatient stay 11/05/24 Pt with some imp more alert tolerating ketamine tx needs assist eating walking flat catatonic cont pts catatonia protocal 11/06/2024 Continue plan of care ketamine 11/07/2024 some mild improvement noted continue Monday ketamine treatment 11/07/2024 Patient continues to show improvement from initial catatonia more verbal try to evaluate mood and psychosis. Need clarity why patient was unable to complete outpatient ketamine 11/08/2024 Gradual improvement continues patient able to ambulate independently Dove catheter continues continue ketamine clozapine mirtazapine Abilify 11/09 no change in presentation; continue treatment plan 11/10 Been doing much better today, walking around, talking. He agrees and says he is doing all right.' patient remembers that it was hard for him to talk yesterday but unable to say why. 11/11/2024 Patient has had 2 days of marked improvement unable to explain behavior prior to admission refusing intravenous ketamine what exactly happened home and why he has negative connotations unable to give a clear history regarding this appears to be responding well to continue ketamine increase Depakote 11/12/2024 Will try discontinue Dove catheter and voiding trial. Monitor for cycling change patient appears to be shifting out of catatonia much orozco range of affect future oriented. Ketamine held today scheduled for 821. Continue Abilify clozapine Depakote try and determine lowest schedule for k etamine that maintains patient very little to go by to guide this decision 10/2024 Continue plan of care monitor for martha or confusion ketamine in the morning monitor response to discontinuing Dove 11/14/2024 Patient's some increased anxiety status post ketamine denies psychotic symptoms offered option of lorazepam PRN Will need to evaluate ketamine dosing 11/15/2024 Increase Abilify to 10 mg lower sertraline to 50 mg monitor response question patient overstimulated by antidepressants check Depakote level check ammonia 11/16/24 Continue plan of care check level 11/17/24 Continue to monitor 11/18/2024 Ketamine on hold gradually increase clozapine and Depakote check level 11/19/2024 Patient seems improved orozco affect calmer and more cooperative less irritable. Question adverse reaction to higher dose of sertraline now decreased responding to increased Depakote. Ketamine infusion scheduled for 11/2111/20/2024 Patient continues on prior algorithm for catatonia which includes Abilify clozapine mirtazapine clozapine. He is also on Depakote Depakote level 28.6 ammonia level unremarkable could decrease Depakote monitor response to ketamine see if we can try and discontinue currently 1 time a week monitor for any adverse effect 11/21/24 dep level low can increase ammonia ok can try and see if ketamine could be held 11/22/24 will try amantadine for eps monitor response 11/27/2024 Ketamine in the morning will try half dosing continue amantadine for EPS continue clozapine and Depakote 11/28/2024 Continue plan of care catatonia markedly improved coordinate discharge 11/29/24 Pt improved fx less lable cont cloizapine amantadine new for eps 11/30 Checked vitals and grossly WNL Nursing reports that patient was irritable today. On approach patient did not want to talk and said I am all set.. Room smelled of urine 12/01 Is quite irritable; today patient got kicked out of OT group which is a 1st. On approach patient said that he is all right and acknowledges that he got angry but does not want to talk about it -ordered p.r.n. Ativan which is helped in the past following ketamine -ordered UA 12/02/2024 Ketamine ordered for the morning patient again it or irritable reactive aggressive unwilling to process emotions and thinking amantadine discontinued may be contributing to irritability agitation was prescribed for EPS. Patient not stable for discharge needs frequent cuing for food fluids internally preoccupied again isolated 12 03 24 Patient seems somewhat improved with ketamine treatment at full dosing this morning he is able to ambulate sit in the kitchen needs assist with showering psychomotor retarded but improved from yesterday limited verbally flat. Amantadine discontinued limited options for EPS given patient history of urinary retention avoiding Cogentin amantadine may have caused irritability check Depakote and Clozaril level working to discharge to a [facility] prison when possible 12/04/24 Patient withdrawn and blunted ketamine against scheduled for tomorrow morning has responded previously unclear why he relapsed again. Increase clozapine will need PICC line or port 12/05/2024 Patient seems improved with to intravenous ketamine treatments this week less de ep in the catatonia scale blunted with poverty of speech in minimal recheck activity but definitely significant improvement from days ago some increase range of emotion and less delay in speech Clozapine increased Coordination with [facility] 12/06/2024 Patient agreeable placement of PICC line remains with some catatonic symptoms but generally improving needs help and cuing for basic functioning not overly depressed continue clozapine Abilify Depakote part of catatonia protocol scheduled ketamine for next week 12/07, 12/08: no change today 12/09/2024 Continue catatonia protocol ketamine for the morning PICC line placed increase mirtazapine consider restart Namenda clozapine has been increased Continue catatonia protocol ketamine for the morning PICC line placed increase mirtazapine consider restart Namenda clozapine has been increased 12/10/2024 Will continue 2 times a week ketamine protocol for catatonia increase sertraline although lorazepam failed previously consider retrial monitor mood 12/11/2024 Ketamine scheduled for 12/12/2024 sertraline increase increase clozapine gradually patient has responded to 2 times a week ketamine previously with a much orozco range of affect and much improvement in mood 12/12/2024 Continue ketamine clozapine increased to 275 improved with ketamine treatment will continue protocol today's the 1st day of any significant improvement need to maintain improvement 12/13/2024 Continue 2 times a week ketamine for 1 more week increase clozapine to 300 mg 12/14 irritable today, refusing to answer questions by staff; does not want to engage. 12/15 brighter, friendler; says he's good and that medications are fine the way they are 12/16 Patient's ANC has decreased to 3.2 will repeat patient still with restricted affect needs cuing for most behavior does eat and drink Limited range of affect increase mirtazapine to 30 mg scheduled for ketamine 923 PICC line has been placed 12/17/[address] Reinaldo Munoz mood flat with some periods of increased range of affect poverty of content continues some internal preoccupation patient on sertraline 100 mirtazapine 30 Abilify 10 clozapine 300 ketamine b.i.d. trying to see if there is setting with [facility] meeting organized 12/18: Continue current treatment regimen. 12/19/24 still poor adls disheveled poor grooming bathing inc range of affect 12/20/24 coordinate with [facility] d/c planning very limited range affect clear partial response to ketamine 12/23/24 Pt has been somewhat improved started on namnda to help boast 12/25/2024 Continue Namenda sertraline mirtazapine ketamine infusion tomorrow will then taper 12/28/2024: No changes to plan. 12/29/2024: No changes. Hopeful to start disposition planning with primary treatment team 12/30/2024 Patient scheduled for ketamine tomorrow morning. Trying to coordinate with [facility] see if there is any way patient can continue as an outpatient Patient's medication was generally selected in relationship to catatonia guidelines when ECT no longer has beneficial. This included Namenda mirtazapine clozapine Abilify Patient with a much orozco range of affect stating he felt like himself and felt ready for discharge. At baseline he still has some limited content was ambulating well no urinary retention was social with peers on the unit Patient appears to have had a total of 17 intravenous ketamine protocol treatments generally done 2 times a week. Case was reviewed with [facility] and with Dr. Munoz we did recommend continued ketamine treatment as an outpatient for prevention of recurrent catatonia clozapine sertraline Abilify had been increased during the hospital stay. Patient had occasional episodes of irritability agitation and paranoia always denied auditory hallucinations generally has been not psychotic for an extended period of time. Case was discussed with Dr. Montoya from [facility] to see if ketamine can be continued in the outpatient setting at [facility] in [place]. ECT has no longer been beneficial patient will be going to [facility] prison for transitional period of time anc 12/31/24 3.0 on depakote and clozaril would yasemin within 1 wk Status at Discharge Functional status at discharge: independent ambulation Overall status at discharge: patient is progressing back to baseline Time Spent with Patient Time attestation: Total time managing care of this patient today ____ minutes. Time spent: Greater than 30 minutes Discharge Plan Discharge Anticipated Discharge Date/Time: 01/01/25 11:00 Patient Disposition: Xfer Other Discharge Diagnosis: schizoaffective disorder catatonia tx resistant Referrals: [facility] ACCS Team [Other] - 01/01/25 Referral Note: Resume with your care team at [facility] for ACCS. [facility] psychiatry Kellie Machuca [Other] - 01/30/25 10:00 am Referral Note: Your next psychiatry appointmnet is 01/30/2025 10:00 AM - 10:40 AM. [facility] Comprehensive Assessment [Other] - 01/07/25 8:30 am Referral Note: You are scheduled for your annual Comprehensive Assessment with [facility] on 01/07/25 at 8:30am. Jonn Smith MD [Physician, Internal Medicine] - 01/03/25 2:00 pm Referral Note: Discharge Medications: New aripiprazole 10 mg Tablet 10 mg PO DAILY@1730 30 Days Qty: 30 1RF divalproex 250 mg tablet,delayed release (DR/EC) 1,000 mg PO DAILY@1999 30 Days Qty: 120 1RF memantine 5 mg Tablet 5 mg PO DAILY 30 Days Qty: 30 1RF mirtazapine 7.5 mg Tablet 22.5 mg PO BEDTIME 30 Days Qty: 90 1RF olanzapine 10 mg Tablet,Disintegrating 5 mg translingual BID PRN (Reason: agitation) 30 Days Qty: 30 1RF trazodone 50 mg Tablet 50 mg PO BEDTIME PRN (Reason: Insomnia) 30 Days Qty: 30 1RF sertraline 100 mg Tablet 100 mg PO DAILY 30 Days Qty: 30 1RF clozapine 100 mg tablet 300 mg PO DAILY@1999 30 Days Qty: 90 1RF clozapine 25 mg tablet 25 mg PO DAILY@1999 30 Days Qty: 30 1RF Continued magnesium hydroxide [Milk of Magnesia] 400 mg/5 mL suspension 5 ml PO BEDTIME Qty: 500 0RF ferrous sulfate 324 mg (65 mg iron) tablet,delayed release (DR/EC) 324 mg PO DAILY Qty: 30 0RF acetaminophen 325 mg Tablet 650 mg PO Q6H PRN (Reason: Headache/Pain, Scale 1-10) 30 Days Qty: 60 1RF polyethylene glycol 3350 17 gram powder in packet 17 g PO DAILY 30 Days Qty: 30 1RF sennosides-docusate sodium [Senna with Docusate Sodium] 8.6-50 mg tablet 1 tab-cap PO BID PRN (Reason: no BM for more than 3days) 30 Days Qty: 60 1RF pramipexole 0.5 mg tablet 0.5 mg PO TID 30 Days Qty: 90 1RF ascorbic acid (vitamin C) [Vitamin C] 500 mg Tablet 500 mg PO DAILY 30 Days Qty: 30 1RF tamsulosin 0.4 mg Capsule 0.8 mg PO BEDTIME 30 Days Qty: 60 1RF finasteride 5 mg Tablet 5 mg PO DAILY 30 Days Qty: 30 1RF thiamine mononitrate (vit B1) 100 mg Tablet 100 mg PO DAILY 30 Days Qty: 30 0RF Discontinued aripiprazole [Abilify] 5 mg Tablet 5 mg PO DAILY@173 Qty: 30 0RF divalproex 125 mg Capsule, Delayed Rel Sprinkle 500 mg PO DAILY@1999 Qty: 120 0RF clozapine 50 mg Tablet 150 mg PO DAILY@1999 Qty: 90 0RF olanzapine 10 mg Tablet,Disintegrating 5 mg translingual BID PRN (Reason: agitation) Qty: 60 0RF mirtazapine 15 mg Tablet 15 mg PO BEDTIME Qty: 30 0RF sertraline 25 mg Tablet 75 mg PO DAILY Qty: 90 0RF Discharge Orders: Discharge Order (Routine); Ordered 01/01/25 Ordered By: Steven Huerta Diet: Advance to usual diet Activity on Discharge: As tolerated Stand Alone Forms: Patient Portal Discharge page, Community Support Print Language: Greek Care Plan Goals: stabilize mood avoid repeated psych hospitalizations prevent catatonic relapse Health Concerns: inc prostate hx pneumonia and sepsis recent urinary retention htn mild TD Plan of Treatment: medication clozapine abilify [place] mirtazapine sertraline psychiatry f[facility] with [facility] montoya for ketamine outpt cost ketamine about 100 month on clozaril recent anc 3.0 yasemin next wk Assessment: pt out of bed fluent speech can engage in conversation stable mood some anxiety re d/c not manic
--- NOTE | 2025-01-01 11:40 | PC.NURSE ---
Patient was aware of his discharge today. Reported readiness for discharge. D/C instructions given to the patient. Left the unit at 11:25, took his belongings with him. Picked up home by his father.
== END 2025-01-01 11:25 | disposition other institution (70) | DRG 885 ==
LOC: HO.ED 10-28 10:51 → HO.PGERI 10-28 13:43
PROVIDERS: Emergency Medicine; Internal Medicine; Psychiatry & Neurology Psychiatry; Admitting Provider Social Worker; Emergency Provider Emergency Medicine; Visit Provider Psychiatry & Neurology Psychiatry
DX: F25.9 Schizoaffective disorder, unspecified (principal); F06.1 Catatonic disorder due to known physiological condition; I10 Essential (primary) hypertension; B36.9 Superficial mycosis, unspecified; E11.9 Type 2 diabetes mellitus without complications; N40.1 Benign prostatic hyperplasia with lower urinary tract symptoms; R33.8 Other retention of urine; R13.10 Dysphagia, unspecified; Z79.899 Other long term (current) drug therapy
CPT/HCPCS: 36410; 36415; 36573; 70450; 71045; 74018; 80048; 80053; 80061; 80143; 80159; 80164; 80179; 80307; 81001; 81003; 82140; 82607; 82746; 82947; 83036; 83605; 84443; 84484; 85025; 85048; 87040; 87086; 87088; 87186; 93005; 97161; 99285; C1751; C1894; J1642; J1650; J2003; J7120; S9485

== ENCOUNTER → 2024-10-27 19:34 | Outpatient (BNV) | payer MEDICARE, MEDICAID, SELFPAY | PROVIDERS: Admitting Provider Social Worker; Emergency Provider Emergency Medicine; Visit Provider Internal Medicine | DX: R41.82 Altered mental status, unspecified (principal) | CPT/HCPCS: 93010 ==

== ENCOUNTER → 2024-10-27 20:11 | Outpatient (BNV) | payer MEDICARE, MEDICAID, SELFPAY | PROVIDERS: Emergency Provider Emergency Medicine; Visit Provider Radiology Diagnostic Radiology | DX: R41.82 Altered mental status, unspecified (principal) | CPT/HCPCS: 70450; 71045 ==

== ENCOUNTER 2024-10-28 12:00 | Outpatient (BNV) | payer MEDICARE, MEDICAID, SELFPAY | END 2024-10-28 16:45 | PROVIDERS: Admitting Provider Social Worker; Emergency Provider Emergency Medicine; Visit Provider Radiology Diagnostic Radiology | DX: K59.00 Constipation, unspecified (principal) | CPT/HCPCS: 74018 ==

== ENCOUNTER 2024-10-28 12:00 | Outpatient (BNV) | payer MEDICARE, MEDICAID, SELFPAY | END 2024-12-06 14:58 | PROVIDERS: Admitting Provider Social Worker; Emergency Provider Emergency Medicine | DX: F06.1 Catatonic disorder due to known physiological condition (principal); F25.9 Schizoaffective disorder, unspecified; Z79.899 Other long term (current) drug therapy | CPT/HCPCS: 36573 ==

== ENCOUNTER → 2024-10-28 12:00 | Outpatient (BNV) | payer MEDICARE, MEDICAID, SELFPAY | PROVIDERS: Admitting Provider Social Worker; Emergency Provider Emergency Medicine; Visit Provider Physician Assistant Medical | DX: R33.9 Retention of urine, unspecified (principal) | CPT/HCPCS: 99231; 99499 ==

== ENCOUNTER → 2024-10-28 12:00 | Outpatient (BNV) | payer MEDICARE, MEDICAID, SELFPAY | PROVIDERS: Admitting Provider Social Worker; Emergency Provider Emergency Medicine; Visit Provider Social Worker | DX: F25.9 Schizoaffective disorder, unspecified (principal); F06.1 Catatonic disorder due to known physiological condition | CPT/HCPCS: 90792 ==

== ENCOUNTER → 2024-10-28 12:00 | Outpatient (BNV) | payer MEDICARE, MEDICAID, SELFPAY | PROVIDERS: Admitting Provider Social Worker; Emergency Provider Emergency Medicine; Visit Provider Psychiatry & Neurology Psychiatry | DX: F25.1 Schizoaffective disorder, depressive type (principal); F06.1 Catatonic disorder due to known physiological condition; I10 Essential (primary) hypertension; R33.9 Retention of urine, unspecified | CPT/HCPCS: 99232 ==

== ENCOUNTER 2025-02-05 14:32 | Outpatient (AMB) | payer MEDICARE, MEDICAID, SELFPAY ==
--- OUTSIDE RECORDS SUMMARY | 2023-09-06 06:15 | XMS_ITS ---
Author Organization [facility] Address [address] [place] [address] Care Team Providers Care Master Black Belt Name Role Phone SarahJonn Primary Care Provider [phone] Deanna Baron Unavailable [phone] Main Valerio Unavailable [phone] REASON FOR VISIT Last Visit PCP 11/2021, At Risk Footcare Encounters Encounter Location Date Provider Diagnosis [facility] [address] [place] [address] 09/06/2023 Main Valerio Tinea unguium B35.1 ; Type 2 diabetes mellitus with diabetic polyneuropathy E11.42 ; Plantar fascial fibromatosis M72.2 ; Pain in right toe(s) M79.674 ; Pain in left toe(s) M79.675 ; Tinea pedis B35.3 ; Calcaneal spur, right foot M77.31 ; Metatarsalgia, left foot M77.42 and Xerosis cutis L85.3 Assessments Encounter Date Diagnosis (ICD Code) Assessment Notes Treatment Notes Treatment Clinical Notes Section Notes 09/06/2023 Tinea unguium (ICD-10 - B35.1) 09/06/2023 Type 2 diabetes mellitus with diabetic polyneuropathy (ICD-10 - E11.42) 09/06/2023 Plantar fascial fibromatosis (ICD-10 - M72.2) 09/06/2023 Pain in right toe(s) (ICD-10 - M79.674) 09/06/2023 Pain in left toe(s) (ICD-10 - M79.675) 09/06/2023 Tinea pedis (ICD-10 - B35.3) 09/06/2023 Calcaneal spur, right foot (ICD-10 - M77.31) 09/06/2023 Metatarsalgia, left foot (ICD-10 - M77.42) 09/06/2023 Xerosis cutis (ICD-10 - L85.3) Plan Of Treatment Next Appt Details Follow Up: 4 Months, Reason: Procedure Notes * Category Sub-Category Detail Notes Keratoma Treatment Parring or Cutting o f Benign Hyperkeratotic Lesion(s) 98423 ( >4 Lesions) - The Benign hyperkeratotic lesions, as described above were pared, and/or cut utilizing a sterile #15 blade, tissue nippers, and/or dremel Nail Reduction Nail Reduction Trimming of dyst rophic nails performed to reduce/remove overall nail length and girth, by manual and electrical means with use of a nail nipper and/or dremel, to more viable healthy nail plate or bed tissue 6-10 (G0127) Progress Notes * Benjamin ALVAREZ PDOB:1965 (59 yo M)Acc No.[id number]:09/06/2023 Progress Note Patient: Benjamin LOPEZ Provider: Jose Nino DPM :1965 A ge:58 Y S ex:Male Date:09/06/2023 Address:[address] [place], [place] [id number] Pcp:Jonn Smith Subjective: * Chief Complaints: * 1 . Last Visit PCP 11/2021. 2. At Risk Footcare. * HPI: A t Risk footcare: Pt States Last PCP Visit: D ate 0 03/27/2023 S kin problems: Nature: d ryness. Location: B /L , Heel/Rearfoot, Forefoot. Duration: s everal months. Course: u nresolved. Treatments: p t has been non-compliant with cetaphil cream as I rx last sev visits. * ROS: G eneral/Constitutional: Nausea d enies. V omiting d enies. H collin Thirst a dmits. L oss appetite d enies. C hills d enies. F atigue d enies.?Fever d enies. N ight Sweats d enies. U nexplained weight loss d enies. U nexplained weight gain d enies. H EENTM: Dentures d enies. D izziness d enies. G lasses/contacts d enies. R etinopathy d enies. B lurred/double vision d enies. T MJ?denies. D ischarge/drainage d enies. I mplants d enies. S ore throat d enies. D ental implants d enies. H mack of hearing d enies. D ifficulty chewing/swallowing/speaking d enies. N ose bleeds d enies. S ore mouth d enies. ? R espiratory: On Oxygen d enies. P neumonia/pleurisy d enies.?Bronchitis d enies. E mphysema d enies. C oughing d enies. C ough blood?denies. S hortness of breath d enies. W heezing d enies. C ardiovascular: Pacemaker d enies. M OPTO MECHANICAL ENGINEER d enies. W PW d enies. C HF d enies. H eart attack d enies. S eptal defect d enies. R apid beat d enies. C hest pain d enies. A trial Fib. d enies. M urmur/Palpitations d enies. G astrointestinal: Hemorrhoids d enies. S tomach/Abdominal pain d enies. D ark blood stool d enies. I rritable bowel d enies. C onstipation a dmits. D iarrhea d enies. H ematology: Swelling d enies. C lots d enies. V aricose Veins d enies. B ruising d enies. B leeding problem d enies. G enitourinary: Blood urine d enies. F requent/Painfu/urination/bladder control d enies. K idney stones d enies. I nfection (UTI) d enies. N ephropathy d enies. s ex trans dis (STD) d enies. P rostate d enies. M usculoskeletal: Hammertoes d enies. B unions d enies. B ack Pain d enies. M uscle Cramps/ Resting d enies. M uscle cramps / walking d enies.?Generalized aches and pains d enies. W eakness d enies. I nteg.: Solorzano d enies. S cars d enies. C orns/calluses?denies. I ngrown nails d enies. P ainful nails d enies. O pen Sores d enies. R ashes d enies. N eurologic: Difficulty sleeping d enies. B rain disorder d enies. N umbness d enies. B alance trouble d enies. C onfusion d enies. F ainting/blackouts d enies. T ingling d enies. T remors d enies. * Medical History: Objective: * Vitals: * Examination: O phthalmology Referral: DIABETES EYE EXAM D iabetic Retinopathy Screening: Y es 03/2022 G eneral Examination: GENERAL APPEARANCE: p leasant, alert, well nourished, well developed, well hydrated, with good attention to hygene/body habitus, and in no acute distress. ORIENTED: p erson,place, and time. FOOT EXAM: L ower Extremity Neurological Exam performed:?Yes V isual exam of foot performed: Y es D ate 0 09/12/2022 S ensory testing performed: s ensations diminished P edal pulse taking performed: 1 + N eurological: SENSORY: e xam demonstrates. reduced vibration lower extremity, at Forefoot, B/L, Neurological exam demonstrates mild pop right heel and plantar left mtpj's, 5.07 monofilament test performed at plantar aspects of 5 varied sites per foot shows sensation, reduced , B/L. TINEL'S COMPRESSION: N egative tarsal tunnel, nae pedis, and medial calcaneal nerves, B/L. BABINSKI REFLEX: A bsent, B/L. V ascular: DP PULSES (B): 1/4, B/L. PT PULSES (B): 1/4, B/L. CAPILLARY FILL TIME: 3 secs. per digit, B/L. TROPHIC CONDITION-TEXTURE/ELASTICITY/TURGOR/HAIR GROWTH (B):?normal, B/L. TEMPERTURE GRADIENT (C): w arm to cool, proximal to distal, B/L. EDEMA (C): 1/4, B/L, Feet, Ankle(s), Leg(s). ? N ails: NAILS are: E longated, overgrown, dystrophic, lytic, greater than 3mm thick, discolored and friable with crumbly malodorous subungual debris, with dull to no pain on palpation due to neuropathy, 2-5 B/L. D ermatologic: SKIN FINDINGS: S kin exam reveals keratotic lesion(s) located at, SUB MTH (s), 1, 5,B/L, Heel(s), B/L. O rthopedic: MUSCLE STRENGTH: 5 /5 all groups in a symmetrical fashion B/L. GAIT ABNORMALITY: p ronated, abducted, B/L. FOOTWEAR EVALUATION: worn, nonsupportive. ? Assessment: * Assessment: 1. T inea unguium - B35.1 (Primary) 2 . T ype 2 diabetes mellitus with diabetic polyneuropathy - E11.42 3 . P lantar fascial fibromatosis - M72.2 ? 4 . P ain in right toe(s) - M79.674 5 . P ain in left toe(s) - M79.675 6 . T inea pedis - B35.3 7 . C alcaneal spur, right foot - M77.31 8 . M etatarsalgia, left foot - M77.42 9 . X erosis cutis - L85.3 Plan: * Treatment: * Procedures: K eratoma Treatment: Parring or Cutting of Benign Hyperkeratotic Lesion(s) 1 1057 ( >4 Lesions) - The Benign hyperkeratotic lesions, as described above were pared, and/or cut utilizing a sterile #15 blade, tissue nippers, and/or dremel. N ail Reduction: Nail Reduction T rimming of dystrophic nails performed to reduce/remove overall nail length and girth, by manual and electrical means with use of a nail nipper and/or dremel, to more viable healthy nail plate or bed tissue 6-10 (G0127). * Procedure Codes: 1 1057 TRIM SKIN LESIONS, OVER 4, Modifiers: XS , G0127 TRIMMING DYSTROPHIC NAILS ANY #, Modifiers: XS * Follow Up: 4 Months * Images: * The named appointment provid er may or may not be the originator of this progress note, and it is not deemed complete until electronically signed by the appointment provider. Sign off status: Pending * Provider: Jose Nino DPM Date: 0 09/06/2023 Generated for Senia velásquez/Mary/Marcelo on: 04/07/2024 05:59 PM EST History and Physical Notes * HPI (History of Present Illness) Category Sub-Category Detail Notes Category Not es Skin problems Nature: dryness Location: B/L , Heel/Rearfoot, Forefoot Duration: several months Course: unresolved Treatments: pt has been non-comp liant with cetaphil cream as I rx last sev visits At Risk footcare Pt States Last PCP Visit: Date: 4 Examination Category Sub-Category Detail Notes Category Not es Neurological SENSORY: exam demonstrate s. reduced vibration lower extremity, at Forefoot, B/L, Neurological exam demonstrates mild pop right heel and plantar left mtpj's, 5.07 monofilament test performed at plantar aspects of 5 varied sites per foot shows sensation, reduced , B/L BABINSKI REFLEX: Absent, B/L TINEL'S COMPRESSION: Negative tarsal angel erik, nae pedis, and medial calcaneal nerves, B/L Dermatologic SKIN FINDINGS: Skin exam reveal s keratotic lesion(s) located at, SUB MTH (s), 1, 5,B/L, Heel(s), B/L Orthopedic GAIT ABNORMALITY: pronated, abducted, B/L FOOTWEAR EVALUATION: worn, nonsupportive MUSCLE STRENGTH: 5/5 all groups in a symmetrical fashion B/L General Examination GENERAL APPEARANCE: pleasant , alert, well nourished, well developed, well hydrated, with good attention to hygene/body habitus, and in no acute distress FOOT EXAM: Lower Extremity Neurological Exa m performed:: Yes Visual exam of foot performed:: Yes Date: 09/12/2022 Sensory testing performed:: sensations d iminished Pedal pulse taking performed:: 1+ ORIENTED: person,place, and ti me Ophthalmology Referral DIABETES EYE EXAM Diabeti c Retinopathy Screening:: Yes 03/2022 Vascular DP PULSES (B): 03/30, B/L PT PULSES (B): 03/30, B/L CAPILLARY FILL TIME: 3 secs. per digit, B/L TEMPERTURE GRADIENT (C): warm to cool, p roximal to distal, B/L TROPHIC CONDITION-TEXTURE/ELASTICITY/TURGOR/HAIR GROWTH (B): normal, B/L EDEMA (C): 03/30, B/L, Feet, Ankl e(s), Leg(s) Nails NAILS are: Elongated, overg rown, dystrophic, lytic, greater than 3mm thick, discolored and friable with crumbly malodorous subungual debris, with dull to no pain on palpation due to neuropathy, 2-5 B/L
--- OUTSIDE RECORDS SUMMARY | 2024-03-28 08:30 | XMS_ITS ---
Author Organization [facility] Address [address] [place] [address] Care Team Providers Care Driving Teacher Name Role Phone Jonn Smith Primary Care Provider [phone] Deanna Baron [phone] Medications Medication SIG (Take, Route, Frequency, Duration) Notes Start Date End Date Status Flomax Active Ciclopirox Olamine 0.77 % 1 application to affected area Externally Twice a day to effected areas on feet; Duration: 30 days Active metFORMIN HCl 500 MG 1 tablet with a anat l Orally Once a day; Duration: 30 day(s) Active LORazepam 2 MG 1 tablet at bedtime as needed Orally Once a day Active Chadwicks Carbonate 600 MG 1 capsule at be dtime Orally Once a day; Duration: 30 day(s) Active clonazePAM Active Custom Orthotics as directed A ctive Abilify Active Physical Therapy . . . 2-3x/week; Durat ion: 3-4 weeks Active Night Splint AFO - L1930 as directed Active Tamsulosin HCl Activ e Zoloft 100 mg Oral Active Encounters Encounter Location Date Provider Diagnosis [facility] [address] [place] [address] 03/28/2024 Deanna Baron Plan Of Treatment No Information Progress Notes * Benjamin ALVAREZ PDOB:1965 (59 yo M)Acc No.[id number]:03/28/2024 Progress Note Patient: Benjamin LOPEZ Gill Provider: Bo Baron DPM :1965 A ge:58 Y S ex:Male Date:03/28/2024 Address:[address] [place], [place] [id number] Pcp:Jonn Smith Subjective: * Chief Complaints: * * Medical History: * Medications: T aking Abilify , Taking clonazePAM , Taking Ciclopirox Olamine 0.77 % Cream 1 application to affected area Externally Twice a day to effected areas on feet , Taking Flomax , Taking Chadwicks Carbonate 600 MG Capsule 1 capsule at bedtime Orally Once a day , Taking LORazepam 2 MG Tablet 1 tablet at bedtime as needed Orally Once a day , Taking metFORMIN HCl 500 MG Tablet 1 tablet with a meal Orally Once a day , Taking Tamsulosin HCl , Taking Zoloft 100 mg Oral , Taking Night Splint AFO - L1930 as directed , Taking Physical Therapy . . . . 2-3x/week , Taking Custom Orthotics as directed Objective: * Vitals: Assessment: Plan: * Treatment: * Images: * The named appointment provid er may or may not be the originator of this progress note, and it is not deemed complete until electronically signed by the appointment provider. Sign off status: Pending * Provider: Bo Baron DPM Date: 0 03/28/2024 Generated for Senia Darden/Marcelo on: 04/07/2024 05:59 PM EST
--- NOTE | 2025-02-05 14:44 | AM.OFFVISMDC ---
Intake Vital Signs 02/05/25 14:46 Height 5 ft 11 in Weight 216 lb BMI 30.1 BP 120/76 Blood Pressure Location Lt brachial Position Sitting Pulse 72 Pulse Source Pulse Oximeter Temp 97.3 F Temp Source Temporal Artery Scan Pulse Oximetry (%) 93 Oxygen Delivery Method Room Air Intake Visit Reasons: AWV - see comments Intake Note: Patient is here for an Annual Wellness Visit. Requesting sleep study due to snoring Shift Foreman Required: No Computer Peripheral Equipment Operator: Computer Peripheral Equipment Operator Present and Computer Peripheral Equipment Operator offered & declined Accompanied by: staff Allergies No Known Allergies (NKA) Allergy (Unknown, Verified 02/07/25 10:09) NONE Medication List - Last Reconciled 02/07/25 by Jonn Smith MD acetaminophen 650 mg (2 x 325 mg) PO Q6H PRN 30 days aripiprazole 10 mg PO DAILY@1729 30 days ascorbic acid (vitamin C) (Vitamin C) 500 mg PO DAILY 30 days clozapine 300 mg (3 x 100 mg) PO DAILY@1999 30 days clozapine 25 mg PO DAILY@1999 30 days divalproex 1,000 mg (4 x 250 mg) PO DAILY@1999 30 days ferrous sulfate 324 mg PO DAILY finasteride 5 mg PO DAILY 30 days magnesium hydroxide (Milk of Magnesia) 5 mL PO BEDTIME memantine 5 mg PO DAILY 30 days mirtazapine 22.5 mg (1.5 x 15 mg) PO BEDTIME 30 days olanzapine 5 mg (1/2 x 10 mg) translingual BID PRN 30 days polyethylene glycol 3350 17 grams PO DAILY 30 days pramipexole 0.5 mg PO TID 30 days sennosides-docusate sodium 8.6-50 mg (Senna with Docusate Sodium) 1 tab-cap PO BID PRN 30 days sertraline 100 mg PO DAILY 30 days tamsulosin 0.8 mg (2 x 0.4 mg) PO BEDTIME 30 days thiamine mononitrate (vit B1) 100 mg PO DAILY 30 days trazodone 50 mg PO BEDTIME PRN 30 days HPI AWV - see comments HPI Details 59-year-old male presents to the office for a subsequent annual wellness visit. [facility] Medical History Tardive dyskinesia Hospital discharge follow-up Mild sleep apnea Nocturnal hypoxia Routine medical exam Joint inflammation of right hand and wrist Status post fall Adult general medical exam Screening for colon cancer Screening for prostate cancer Cough BPH (benign prostatic hyperplasia) Surgical History History of colonoscopy (~06/15/21) History of tooth extraction History of root canal procedure Family History Mother Cancer Father Kidney agenesis Social History Household Members: Other Household Members Other:: Medical based long term Caregiver staying overnight: Yes Housing: Other Housing Other:: Medical based long term Are you a primary healthcare facility administrator to a significant other at home: No Do you presently have visiting nurse or other home services: Yes (VNA, Kamran, VNA with [facility]) Alcohol intake: former Comment: 1:1 Patient Tobacco Use Status: Never used Tobacco e-Cigarette/Vaping Use: Never Used Second Hand Smoke Exposure: No service: No Current occupational status: employed Sexual orientation: Straight/Heterosexual Cognitive needs: No Hearing needs: No Vision needs: No Questionnaire Medicare Wellness Checkup What is your age?: 65-69 (59) What gender do you identify with?: male During the past 4 weeks, how much have you been bothered by emotional problems such as feeling anxious, depressed, irritable, sad or downhearted, and blue?: moderately During the past 4 weeks, has your physical & emotional health limited your social activities with family, friends, neighbors, or groups?: not at all During the past 4 weeks, how much bodily pain have you generally had?: moderate pain During the past 4 weeks, was someone available to help you if you needed & wanted help?: yes, as much as I wanted During the past 4 weeks, what was the hardest physical activity you could do for at least 2 minutes?: light Can you get to places out of walking distance without help? (For eg., can you travel alone on buses, taxis or drive your car?): No Can you go shopping for groceries or clothes without someone's help?: No Can you prepare your own meals?: No Can you do your housework without help?: No Because of any health problems, do you need the help of another person with your personal care needs such as eating, bathing, dressing or getting around the house?: No Can you handle your own money without help?: No During the past 4 weeks, how would you rate your health in general?: very good During the past 4 weeks how have things been going for you?: good & bad parts about equal Are you having difficulties driving your car?: yes, often Do you always fasten your seat belt when you are in a car?: yes, usually During past 4 weeks, have you been bothered by the following: seldom: Falling or dizzy when standing up, sometimes: Problems using the telephone? and Tiredness or fatigue?, often: Teeth or denture problems? and always: Sexual problems? Have you fallen 2 or more times in the past year?: No Are you afraid of falling?: Yes Are you a smoker?: no During the past 4 weeks, how many drinks of wine, beer, or other alcoholic beverages did you have?: no alcohol at all Do you exercise for about 20 minutes 3 or more times a week?: no, I usually do not exercise this much Have you been given information to help with the following?: yes: Hazards in your house that might hurt you? and yes: Keeping track of your medications? How often do you have trouble taking medicines the way you have been told to take them?: I always take medicine as prescribed How confident are you that you can control & manage most of your health problems?: somewhat confident What is your race?: White Activity of Daily Living Bathing - sponge bath, tub bath or shower: receives no assistance (gets in/out by self, if usual bathing means Dressing - getting clothes from closets & drawers, including inner/outer garments & fasteners.: gets clothes & gets completely dressed without help Toileting - going to the 'toilet room' for urine/bowel elimination & cleaning self/arranging clothes: goes to toilet room, cleans self, arranges clothes without help Transfer: moves in & out of bed and chair without help (may use support object) Continence: controls urination/bowel movements completely by self Feeding: feeds self without help Total Score: 0 Information obtained from: patient Using telephone: independent Traveling: independent Shopping: independent Preparing meals: independent Housework: independent Taking medicine: needs assistance Managing money: needs assistance PHQ-9 Over the last 2 weeks, how often have you been bothered by any of the following problems? 1. Little interest or pleasure in doing things: more than half the days 2. Feeling down, depressed, or hopeless: more than half the days 3. Trouble falling or staying asleep, or sleeping too much: not at all 4. Feeling tired or having little energy: several days 5. Poor appetite or overeating: not at all 6. Feeling bad about yourself - or that you are a failure or have let yourself or your family down: more than half the days 7. Trouble concentrating on things, such as reading the newspaper or watching television: nearly every day 8. Moving or speaking so slowly that other people could have noticed. Or the opposite - being so fidgety or restless that you have been moving around a lot more than usual: several days 9. Thoughts that you would be better off or of hurting yourself in some way: not at all Total score: 11 Depression Screening Interpretation: Positive Depression Screening Done: Yes Source: Developed by Drs. Jacob Bates, Farrah Scott, Jose Martin Powell and colleagues, with an educational brigid from [employer]. Thrive Questionnaire Date Thrive assessed: 10/30/24 JONAH-7 AMB Questionnaire JONAH-7 Date JONAH - 7 assessed: 10/25/24 Source: Developed by Drs. Jacob Bates, Jose Martin Dent and colleagues, with an educational brigid from [employer]. Physical Exam Vital Signs: Last Vital Signs Temp 97.3 F 02/05/25 14:46 Pulse 72 02/05/25 14:46 BP 120/76 02/05/25 14:46 Pulse Ox 93 02/05/25 14:46 Oxygen Delivery Method Room Air 02/05/25 14:46 BMI result Body Mass Index 30.1 Balance: Negative Romberg: Negative Tandem Walk: Able to Walk and Turn: Able to Rise from sit to stand: Able to Hearing Whisper test: Pass Office Procedures Flu Questionnaire Does the patient have a severe egg allergy?: No Does the patient have severe life threatening allergies?: No Does the patient have a fever or illness today?: No Has the patient ever had Guillain-[place] Syndrome?: No Has the patient ever had any past reaction to a flu shot?: No Immunizations Fluarix [id number] (PF) 45 mcg (15 mcg x 3)/0.5 mL IM syringe Performing Provider: Jonn Smith MD [facility] Administered by: May Echeverria CMA on 02/05/25 15:11 Dose Route Admin Location Dispensed Lot Number Expiration Date NDC Technician [employer] Equipment 0.5 mL IM Left Deltoid 0.5 mL [id number] 09/23/25 93210-410-08 [employer] VIS Given Date VIS Provided VIS Publication Date 02/05/25 Single Vaccine 24 Eligibility Eligibility Date Funding Source Not [facility] Eligible 02/05/25 Private Assessment & Plan Assessment & Plan (1) Annual physical exam: Code(s): Z00.00 - Encounter for general adult medical examination without abnormal findings Plan: History of Present Illness - The patient is a 59-year-old male presenting for referrals and preventative care. - The patient's requests a referral for a sleep study due to significant snoring. - He is due for a repeat colonoscopy, though he saw a doctor for it last year. - The patient reports experiencing neck stiffness. - He currently has a cold with a cough. - He has not yet received his flu shot for the season. - His psychiatric medications are prescribed and managed by a psychiatrist. Social History - The patient does not handle his own medications. - Regarding nutrition, he is able to prepare simple meals such as microwave pizzas, but his caregiver cooks his breakfast and dinner. Review of Systems - Respiratory: Reports snoring and cough. - Musculoskeletal: Reports neck stiffness. Physical Exam General: Cooperative and healthy appearing Nutritional Appearance: Well nourished Orientation/consciousness: Patient oriented x3 Limitations: No limitations Head: Normal to inspection General: Appearance normal, both eyes and all related structures Neck: Normal visual inspection Chest: Normal palpation of entire chest wall Respiratory: Patient has a cold and has been coughing. ormal respiratory effort Neurology: Patient oriented x3 Results Plan - A referral will be ordered for a sleep study to evaluate snoring. - A referral form will be completed for a repeat colonoscopy. - An influenza vaccine will be administered today. Discussion Notes I will order a sleep study for the patient due to his snoring. I also agreed to provide a referral for a repeat colonoscopy and will complete the required form. We will administer his flu shot during today's visit. Patient Instructions - You will receive your flu shot today in the office. - We will order a sleep study to check for problems related to your snoring. - We will give you a referral form to schedule a colonoscopy, which needs to be repeated. Orders: Orders Influenza [id number] Immunization 02/05/25 Z23 - Encounter for immunization Quality Reporting (2019) Depression/Bipolar (159/160/161/177) PHQ-9: Total score: 11 Coding Level of Care Code Medicare Subsequent (G0439) Diagnoses Annual physical exam Z00.00
[2025-02-05 14:46] VITALS: BP 120/76; PULSE 72; TEMP 36.3; O2SAT 93; BMI 30.1
--- OUTSIDE RECORDS SUMMARY | 2025-02-05 18:00 | XMS_ITS | Patient Health Record ---
Author Organization [facility] Address [address] [place] [address] Care Team Providers Care Drafter Electrical Name Role Phone BREN RHOADES Primary Care Provider Remy Groves Jr Unavailable Reason For Referral No Information Medications Medication SIG (Take, Route, Frequency, Duration) Notes Start Date End Date Status Sertraline HCl 100 MG Oral; Duration: 30 Active LORazepam 2 MG Oral; Duration: 30 Active metFORMIN HCl ER 500 MG Oral; Duration: 90 Active cloZAPine 100 MG Oral; Duration: 30 Active MiraLax (colon prep) 17 GM/SCOOP mixed with Gatorade or Crystal Light Orally begin at 5:00 p.m. the day before the procedure; Duration: 1 day 05/19/2021 Active [place] Carbonate 300 MG Oral; Duration: 30 Active Tamsulosin HCl 0.4 MG Oral; Duration: 90 Active Immunizations Vaccine Route Administration Date [...] Problem Status W/U Status Risk Notes Problem Colon cancer screening (525046719) Colon cancer screening (Z12.11) Active confirmed Problem Long-term current use of drug therapy (291025392) intermediate card tender (current) use of oral hypoglycemic drugs (Z79.84) Active confirmed Plan Of Treatment Future Test Test Name Order Date COLONOSCOPY 05/19/2021 Insurance Providers Payer Name Payer Address Payer Phone Subscriber Number Group Number Insured Name Patient Relationship to Insured Coverage Start Date Coverage End Date MEDICARE OF [place] [address] [place] [id number] MULUGETA ALVAREZ Self - patient is the insured MEDICAID OF [facility] [address] [place] [address] [id number] MULUGETA ALVAREZ Self - patient is the insured Medical (General) History Medical History History ICD Code diabetes mellitus hypertension schizophrenia BPH Surgical History Surgery Date(Month/Year)
--- OUTSIDE RECORDS SUMMARY | 2025-02-05 18:00 | XMS_ITS | Patient Health Record ---
Author Organization [facility] Address [address] [place] [address] Care Team Providers Care Brewery Pumper Name Role Phone SarahJonn Primary Care Provider [phone] Deanna Baron Unavailable [phone] Allergies No Known Allergies Reason For Referral No Information Medications Medication SIG (Take, Route, Frequency, Duration) Notes Start Date End Date Status Flomax Active Ciclopirox Olamine 0.77 % 1 application to affected area Externally Twice a day to effected areas on feet; Duration: 30 days Active clonazePAM Active Custom Orthotics as directed A ctive Tamsulosin HCl Activ e metFORMIN HCl 500 MG 1 tablet with a anat l Orally Once a day; Duration: 30 day(s) Active LORazepam 2 MG 1 tablet at bedtime as needed Orally Once a day Active [place] Carbonate 600 MG 1 capsule at be dtime Orally Once a day; Duration: 30 day(s) Active Abilify Active Physical Therapy . . . 2-3x/week; Durat ion: 3-4 weeks Active Night Splint AFO - L1930 as directed Active Zoloft 100 mg Oral Active Immunizations Vaccine Route Administration Date Status Comme nts Influenza Unknown 12/26/2017 Administered Influenza Unknown 01/09/2019 Administered Influenza Unknown 12/14/2021 Administered COVID-19 Keanu & Keanu/Mila Unknown 01/19/2021 Administered 1st 07/04/2020 Social History Tobacco Use: Social History Observation [...] Polyneuropathy due to type 2 diabetes mellitus (605809226) Type 2 diabetes mellitus with diabetic polyneuropathy (E11.42) Active confirmed Encounters Encounter Location Date Provider Diagnosis [facility] [address] [place] [address] 03/28/2024 Deanna Baron Plan Of Treatment Pending Test Test Name Order Date X ray : Foot, right 3V 10/17/2018 [id number] NAIL, 6 OR MORE 12/26/2023 13238-KVGP SKIN LESIONS, OVER 4 04/07/19 22 78710-EHKL SKIN LESIONS, OVER 4 01/31/20 19 65141-GHXJ SKIN LESIONS, OVER 4 06/05/19 20 73829-BAHM SKIN LESIONS, OVER 4 07/31/19 19 22783-NVKG SKIN LESIONS, OVER 4 10/18/19 19 62060-BLXM SKIN LESIONS, OVER 4 09/18/19 20 64093-XLLW SKIN LESIONS, OVER 4 12/16/19 20 36586-DYGV SKIN LESIONS, OVER 4 04/08/19 21 01861-BZIG SKIN LESIONS, OVER 4 08/06/19 21 29838-FJHR SKIN LESIONS, OVER 4 12/17/19 21 A6951-PJYFMCEP DYSTROPHIC NAILS ANY # Q9885-LIJINUET DYSTROPHIC NAILS ANY # V3406-PPSWAQMB DYSTROPHIC NAILS ANY # A8865-IHFBFSQF DYSTROPHIC NAILS ANY # A5545-GCSCGISC DYSTROPHIC NAILS ANY # Q7015-ORIQAGFI DYSTROPHIC NAILS ANY # R6330-OTBMTPCJ DYSTROPHIC NAILS ANY # Insurance Providers Payer Name Payer Address Payer Phone Subscriber Number Group Number Insured Name Patient Relationship to Insured Coverage Start Date Coverage End Date [employer] Medicare Open [address] [place] [address] [id number] Benjamin Tenorio Self - patient is the insured Medical (General) History Medical History History ICD Code Depression type II diabetes Surgical History Surgery Date(Month/Year) colonoscopy 06/19/21 Hospitalization History Reason Date(Month/Year) HJU-Jnqqitsvbo-GF visit 12/2018
== END 2025-02-05 15:17 | disposition home or self-care (01) ==
LOC: HO.HMCH 14:33
PROVIDERS: PCP Internal Medicine; Visit Provider Internal Medicine
DX: Z23 Encounter for immunization (principal)

== ENCOUNTER → 2025-02-05 14:32 | Outpatient (BNVA) | payer MEDICARE, MEDICAID, SELFPAY | PROVIDERS: PCP Internal Medicine; Visit Provider Internal Medicine | DX: Z00.00 Encounter for general adult medical examination without abnormal findings (principal); Z23 Encounter for immunization | CPT/HCPCS: 90471; 90656; 96127 ==

== ENCOUNTER 2025-02-07 12:49 | Outpatient (REF) | payer MEDICARE, MEDICAID, SELFPAY ==
[2025-02-07 13:14] LABS: MANUAL DIFF FLAG NO
[2025-02-07 13:30] LABS: Hematocrit 40.6 % (42.0-52.0); Hemoglobin 13.0 g/dl (14.0-18.0); Imm Gran Abs Auto 0.13 X10*3/uL (0.00-0.03); Imm Gran Pct Auto 2.7 % (0.0-0.4); Lymphocytes Absolute Auto 1.3 X10*3/uL (1.2-4.9); Mean Corpuscular HGB Conc 32.0 g/dl (31.0-36.0); Mean Corpuscular Hemoglobin 29.1 pg (27.0-33.0); Mean Corpuscular Volume 91.0 fL (80.0-98.0); NRBC Abs Auto 0.000 X10*3/uL (0.0-0.012); NRBC Pct Auto 0.0 /100WBC (0.0-0.2); Platelet Count 178 X10*3/uL (160-400); Red Blood Count 4.46 X10*6/uL (4.60-5.80); White Blood Count 4.8 X10*3/uL (4.8-10.8)
== END 2025-02-07 12:50 | disposition home or self-care (01) ==
LOC: HO.10HDL 12:49
PROVIDERS: Visit Provider Psychiatry & Neurology Psychiatry
DX: F25.9 Schizoaffective disorder, unspecified (principal); Z79.899 Other long term (current) drug therapy
CPT/HCPCS: 36415; 85025

== ENCOUNTER 2025-02-28 01:54 | Inpatient (IN) | payer MEDICARE, MEDICAID, SELFPAY ==
[2025-02-28] VITALS (7 sets, daily range): BP systolic 121–137; BP diastolic 63–79; PULSE 71–79; RESP 14–20; TEMP 36.5–36.9; O2SAT 95–98; BMI 28.1
--- NOTE | ~2025-02-28 | CT_ITS ---
CLINICAL HISTORY: AMS CT head without contrast Comparison: 10/27/2024 Findings: No new intra-axial mass, midline shift, hydrocephalus, or acute hemorrhage. No significant atrophy-like change or white matter disease. The visualized paranasal sinuses and mastoid air cells are normal. The orbits are within normal limits. There is no acute fracture. IMPRESSION: 1. No acute intracranial findings. This document has been electronically signed by: Stevo Harris MD on 02/28/2025 04:53:20
--- NOTE | ~2025-02-28 | XR_ITS ---
CLINICAL HISTORY: congestion, hypoxia 2 view chest x-ray Comparison: 08/14/2024 Findings: No consolidation or effusion. Heart size is normal. No acute fracture. IMPRESSION: 1. No acute findings. This document has been electronically signed by: Stevo Harris MD on 03/02/2025 07:02:44
--- NOTE | 2025-02-28 02:12 | ECG_ITS ---
Test Reason : AMS Blood Pressure : */* mmHG Vent. Rate : 76 BPM Atrial Rate : 76 BPM P-R Int : 162 ms QRS Dur : 82 ms QT Int : 378 ms P-R-T Axes : 64 34 39 degrees QTcB Int : 425 ms Normal sinus rhythm Nonspecific T wave abnormality Borderline ECG When compared with ECG of 27-Oct-2024 19:53, No significant change was found Referred By: Kiera Wyman Electronically Signed By: RY HERRMANN
--- NOTE | 2025-02-28 02:32 | PC.NURSE ---
LARGE amount of stool noted to patient. Cleansed thoroughly per MARIALUISA's Elisa.
--- NOTE | 2025-02-28 02:38 | ED.GENADULT ---
HPI - General Adult General Chief complaint: Altered Mental Status Stated complaint: ams Time Seen by Provider: 02/28/25 02:05 Source: EMS Mode of arrival: EMS Limitations: other History of Present Illness ED Provider: Dr. Kiera Wyman HPI narrative: Patient comes to the emergency room via ambulance from a detention. According to the staff, prior to arrival they found the patient covered in feces and urine. Patient not answering any questions but following commands. According to the staff, when the patient starts behaving like this, having altered mental status, he usually has to come in for decompensation of schizophrenia, depression with catatonia. A few months ago he had a similar presentation, found in the same way, was admitted to the psychiatry service here at [facility]. According to the staff, patient has not been sick Related Data Home Medications ?Medication ?Instructions ?Recorded ?Confirmed magnesium hydroxide 400 mg/5 mL 400 mg PO BEDTIME 03/01/25 03/01/25 oral suspension (Milk of Magnesia) venlafaxine 150 mg 150 mg PO BEDTIME 03/01/25 03/01/25 capsule,extended release 24 hr venlafaxine 75 mg tablet,extended 75 mg PO DAILY 03/01/25 03/01/25 release 24 hr Previous Rx's ?Medication ?Instructions ?Recorded acetaminophen 325 mg tablet 650 mg (2 x 325 mg) PO Q6H PRN 12/31/24 Headache/Pain, Scale 1-10 30 days #60 tabs aripiprazole 10 mg tablet 10 mg PO DAILY@1729 30 days #30 12/31/24 tabs clozapine 100 mg tablet 300 mg (3 x 100 mg) PO DAILY@199912/31/24 30 days #90 tabs clozapine 25 mg tablet 25 mg PO DAILY@1999 30 days #30 12/31/24 tabs divalproex 250 mg tablet,delayed 1,000 mg (4 x 250 mg) PO 12/31/24 release DAILY@1999 30 days #120 tabs finasteride 5 mg tablet 5 mg PO DAILY 30 days #30 tabs 12/31/24 memantine 5 mg tablet 5 mg PO DAILY 30 days #30 tabs 12/31/24 olanzapine 10 mg disintegrating 5 mg (1/2 x 10 mg) translingual 12/31/24 tablet BID PRN agitation 30 days #30 tabs pramipexole 0.5 mg tablet 0.5 mg PO TID 30 days #90 tabs 12/31/24 sertraline 100 mg tablet 100 mg PO DAILY 30 days #30 tabs 12/31/24 tamsulosin 0.4 mg capsule 0.8 mg (2 x 0.4 mg) PO BEDTIME 30 12/31/24 days #60 caps trazodone 50 mg tablet 50 mg PO BEDTIME PRN Insomnia 30 12/31/24 days #30 tabs mirtazapine 15 mg tablet 22.5 mg (1.5 x 15 mg) PO BEDTIME 01/02/25 30 days #45 tabs ascorbic acid (vitamin C) 500 mg 500 mg PO DAILY 30 days #30 tabs 01/15/25 tablet (Vitamin C) ferrous sulfate 324 mg (65 mg 324 mg PO DAILY #30 tabs 01/30/25 iron) tablet,delayed release magnesium hydroxide 400 mg/5 mL 5 ml PO BEDTIME #500 mL 02/12/25 oral suspension (Milk of Magnesia) thiamine mononitrate (vit B1) 100 100 mg PO DAILY 30 days #30 tabs 02/12/25 mg tablet polyethylene glycol 3350 17 gram 17 g PO DAILY 30 days #30 packets 02/26/25 oral powder packet Allergies Allergy/AdvReac Type Severity Reaction Status Date / Time No Known Allergies (NKA) Allergy Unknown NONE Verified 02/28/25 02:52 Review of Systems Review of Systems: Yes Other (Patient is not answering any questions) [facility] Past Medical History Medical History Tardive dyskinesia Hospital discharge follow-up Mild sleep apnea Nocturnal hypoxia Routine medical exam Joint inflammation of right hand and wrist Status post fall Adult general medical exam Screening for colon cancer Screening for prostate cancer Cough BPH (benign prostatic hyperplasia) Surgical History History of colonoscopy (~06/15/21) History of tooth extraction History of root canal procedure Family History Family History Mother Cancer Father Kidney agenesis Social History Social History Household Members: Other Household Members Other:: Medical based detention Housing: Other Housing Other:: Halfway Are you a primary home care coordinator to a significant other at home: No Do you presently have visiting nurse or other home services: Yes Unable to assess alcohol history related to: Unable to respond Alcohol intake: former Comment: 1:1 Patient Tobacco Use Status: Never used Tobacco e-Cigarette/Vaping Use: Never Used Second Hand Smoke Exposure: No Use of substances other than those prescribed or required for medical reasons: Unable to respond Currently Displaying Signs/Symptoms of Drug Intoxication Withdrawal: No Are you made to feel afraid or neglected: No Advance Directives: Yes (Pt's father Benjamin Tenorio) Advance Directives on File: Yes Advance Directives Date on File: 10/02/24 Do you have thoughts of harming others: None Do you have a plan to hurt others: No Plan Recently lost weight without trying: No Nutrition Risks: Difficulty swallowing service: No Current occupational status: employed Sexual orientation: Straight/Heterosexual Cognitive needs: No Hearing needs: No Vision needs: No Physical Exam ED Exam Exam: Appearance: Alert. No acute distress. Eyes: Pupils equal, round and reactive to light. ENT: Pharynx normal. Neck: Normal inspection. Neck supple. No lymph nodes noted. No crepitus CVS: Normal heart rate and rhythm. Pulses normal. Normal S1 and S2 Respiratory: No respiratory distress. Breath sounds normal. No Wheezing. No rales Abdomen: Soft and nontender. No rigidity. No distention. Skin: Skin warm and dry. Normal skin color. Normal skin turgor. Extremities: No lower extremity edema. No Lacerations. No Rash Neuro: Patient moves all extremities, No slurred speech. CN 2 through 12 grossly intact Psych: calm, cooperative Vital Signs: Vital Signs - 24 hr 03/04/25 14:40 Temperature 98.2 F Pulse Rate 80 Respiratory Rate 14 Blood Pressure 120/53 L Pulse Oximetry 92 Oxygen Delivery Method Room Air BMI result Body Mass Index 28.1 Course Course Course Narrative: According to detention staff, the patient has had presentations in the past where he is found covered in urine and feces. Eventually patient was diagnosed with depression and catatonia Reevaluation(s) Reevaluation #1: Time: 07:16 Date: 02/28/25 Provider: Mario Lui MD Patient in physician observation for psychiatric evaluation.? No acute events reported overnight. No current complaints. VS stable.? Patient is in bed search status/pending CARE team evaluation. Will continue to monitor. Reevaluation #2: Time: 07:06 Date: 03/01/25 Provider: Mario Lui MD Patient in physician observation for psychiatric evaluation.? No acute events reported overnight. No current complaints. VS stable.? Patient is in bed search status/pending CARE team evaluation. Will continue to monitor. Reevaluation #3: 2:46 AM 03/02/2025 (Dr. Miranda Reagan, Husam.O.) called to the bedside by RN who reports sonorous respirations, ?junky sounding breathing with oxygen levels in the 90-91% range?. Patient appears to be snoring on my exam however, given his low oxygen levels which are reportedly not baseline for him, we will add on a COVID/flu/RSV swab as well as a chest x-ray. He does have some sinus congestion and has several tissues by the bedside that are used. Patient is catatonic, unable to answer questions at this time. 6:47 AM 03/02/2025 (Dr. Miranda Reagan, D.O.) flu swab and COVID swabs are negative. Patient's chest x-ray does not show evidence of infection. I do suspect that his breathing was labored due to obesity hypoventilation versus sleep apnea. Oxygen levels are back up to normal on room air. We will continue to monitor. Awaiting bed placement. 2:56 PM 03/02/2025 (Dr. Gab Alejandro): care team requested psych consult for possible discharge tomorrow Time: 05:54 Date: 03/03/25 Provider: Dariana Joyce, Patient in physician observation for psychiatric evaluation.? No acute events reported overnight. No current complaints. VS stable.? Patient is in bed search status/pending CARE team evaluation. Will continue to monitor. Time: 05:34 Date: 03/04/25 Provider: Zan Hogue MD Patient in physician observation for psychiatric evaluation.? No acute events reported overnight. No current complaints. VS stable.? the patient was re-evaluated by the CARE team yesterday. Patient continues to meet inpatient level of care requirements. Will continue to monitor. time 16;00 03/04/2025: DR. Benson's note: Patient was psych admission for treatment resistant catatonia in the past has similar presentation, in regard to elevated BUN/creatinine patient is at his baseline chronic renal injury, no acute emergency medical intervention is needed at this point for his staple BUN /creatinine, patient will need to follow-up as an outpatient with his renal doctor. for the time being patient will need inpatient psych management for his condition. Time: 17:29 Date: 03/04/25 Provider: Zan Hogue MD Physician observation ended at 17:29 . Patient was admitted to [facility] inpatient psychiatric unit M3. Medications Administered Generic Name Dose Route Start Last Admin Trade Name Freq PRN Reason Stop Dose Admin Aripiprazole 10 mg 03/01/25 17:30 03/04/25 16:27 Aripiprazole 10 Mg Tablet PO 10 mg DAILY@1730 KRISTIN Administration Ascorbic Acid 500 mg 03/02/25 09:00 03/04/25 12:22 Ascorbic Acid 500 Mg Tablet PO 500 mg DAILY KRISTIN Administration Clozapine 25 mg 03/01/25 20:00 03/04/25 20:28 Clozapine 25 Mg Tablet PO 25 mg DAILY@1999 KRISTIN Administration Clozapine 300 mg 03/01/25 20:00 03/04/25 20:29 Clozapine 100 Mg Tablet PO 300 mg DAILY@1999 KRISTIN Administration Divalproex Sodium 1,000 mg 03/01/25 20:00 03/04/25 20:28 Divalproex Sodium 500 Mg Tablet. PO 1,000 mg DAILY@1999 KRISTIN Administration Ferrous Sulfate 324 mg 03/02/25 09:00 03/04/25 12:22 Ferrous Sulfate 324 Mg Tablet. PO 324 mg DAILY KRISTIN Administration Finasteride 5 mg 03/02/25 09:00 03/04/25 12:22 Finasteride 5 Mg Tablet PO 5 mg DAILY KRISTIN Administration Lorazepam 1 mg 02/28/25 15:45 03/04/25 20:29 Lorazepam 1 Mg Tablet PO 1 mg TID KRISTIN Administration Magnesium Hydroxide 5 ml 03/01/25 21:00 03/04/25 20:29 Milk Of Magnesia 30 Ml Oral.Susp PO 5 ml BEDTIME KRISTIN Administration Memantine 5 mg 03/02/25 09:00 03/04/25 12:23 Memantine Hcl 5 Mg Tablet PO 5 mg DAILY KRISTIN Administration Mirtazapine 22.5 mg 03/01/25 20:00 03/04/25 20:29 Mirtazapine 7.5 Mg Tablet PO 22.5 mg BEDTIME@2000 KRISTIN Administration Polyethylene Glycol 17 gm 03/02/25 09:00 03/04/25 12:23 Polyethylene Glycol 3350 17 Gm Powd.Pack PO 17 gm DAILY KRISTIN Administration Pramipexole Dihydrochloride 0.5 mg 03/01/25 09:15 03/04/25 20:29 Pramipexole Di-Hcl 0.25 Mg Tablet PO 0.5 mg TID KRISTIN Administration Sertraline HCl 100 mg 03/02/25 09:00 03/04/25 12:23 Sertraline Hcl 100 Mg Tablet PO 100 mg DAILY KRISTIN Administration Tamsulosin HCl 0.8 mg 03/01/25 21:00 03/04/25 20:29 Tamsulosin Hcl 0.4 Mg Capsule PO 0.8 mg BEDTIME KRISTIN Administration Thiamine HCl 100 mg 03/02/25 09:00 03/04/25 12:23 Thiamine Hcl 100 Mg Tablet PO 100 mg DAILY RKISTIN Administration Trazodone HCl 50 mg 03/01/25 21:00 03/04/25 20:28 Trazodone Hcl 50 Mg Tablet PO 50 mg BEDTIME KRISTIN Administration Venlafaxine HCl 150 mg 03/03/25 21:00 03/04/25 20:29 Venlafaxine Hcl Er 150 Mg Cap.Er.24h PO 150 mg BEDTIME KRISTIN Administration Discontinued Medications Generic Name Dose Route Start Last Admin Trade Name Freq PRN Reason Stop Dose Admin Venlafaxine HCl 75 mg 03/01/25 09:15 03/02/25 12:30 Venlafaxine Hcl Er 75 Mg Cap.Er.24h PO 03/02/25 09:01 75 mg DAILY KRISTIN Administration Medical Decision Making Medical Decision Making [facility] Narrative: My interpretation of EKG: Normal sinus rhythm, heart rate 76, no ST segment depression or elevation, no T-wave inversion, QTC 425 My interpretation of labs: No significant abnormality in patient's hematology and chemistry. Patient's creatinine is 1.46 which patient has had previously. Normal LFTs, normal troponin, urinalysis negative for UTI , drugs of abuse pending, valproic acid 62.6, therapeutic level. Patient's vitals stable CT scan of the head does not show any acute abnormalities As mentioned above, patient has had similar episodes in the past, patient was diagnosed with schizophrenia, depression with catatonia. There is no point of getting care team consult at this time, patient is nonverbal, in catatonic state? Psychiatric consult pending. Sign-out given to my colleague Dr. Lui Differential Diagnosis Differential Diagnoses: The differential diagnosis associated with the presentation includes (Catatonia, UTI, accidental medication overdose) Admission/Observation Consideration of admission/observation: Escalation of care including admission/observation considered (Patient will need inpatient level of care) Lab Data MDM Lab Attestation statement: I reviewed the patient's lab results. 03/04/25 05:12 03/04/25 05:12 Labs: Lab Results 02/28/25 02/28/25 02/28/25 Range/Units 02:51 03:26 05:48 WBC 5.0 (4.8-10.8) X10*3/uL RBC 4.51 L (4.60-5.80) X10*6/uL Hgb 13.2 L (14.0-18.0) g/dl Hct 41.3 L (42.0-52.0) % MCV 91.6 (80.0-98.0) fL MCH 29.3 (27.0-33.0) pg MCHC 32.0 (31.0-36.0) g/dl RDW 13.2 (11.0-16.0) % Plt Count 112 L D (160-400) X10*3/uL MPV 11.6 (9.4-12.4) fL Immature Gran % (Auto) 1.4 H (0.0-0.4) % Neut % (Auto) 60.2 (45-73) % Lymph % (Auto) 29.0 (20-40) % [place] % (Auto) 9.0 (2-11) % Eos % (Auto) 0.0 (0-4) % Baso % (Auto) 0.4 (0-2) % Lymph # (Auto) 1.5 (1.2-4.9) X10*3/uL [place] # (Auto) 0.5 (0.1-1.2) X10*3/uL Eos # (Auto) 0.0 (0.0-0.4) X10*3/uL Baso # (Auto) 0.0 (0.0-0.2) X10*3/uL Abs Immat Gran (auto) 0.07 H (0.00-0.03) X10*3/uL Absolute Neuts (auto) 3.0 (2.0-8.3) x10*3/uL Absolute Nucleated RBC 0.000 (0.0-0.012) X10*3/uL Nucleated RBC % (auto) 0.0 (0.0-0.2) /100WBC Sodium 144 (135-145) mmol/L Potassium 5.1 (3.3-5.1) mmol/L Chloride 109 H (96-108) mmol/L Carbon Dioxide 22 (22-29) mmol/L Anion Gap 18 (12-20) BUN 33 H (9-16) mg/dL Creatinine 1.46 H (0.5-1.4) mg/dL Estim Creat Clear Calc 63.2 Estimated GFR 49 POC Glucose (60-115) mg/dL Random Glucose 92 (60-115) mg/dL Calcium 9.0 (8.4-10.2) mg/dL Magnesium 2.4 (1.6-2.6) mg/dL Total Bilirubin 0.3 (0.0-1.0) mg/dL Direct Bilirubin 0.1 (0.0-0.5) mg/dL AST 27 (5-37) U/L ALT 18 (0-40) U/L Alkaline Phosphatase 68 (39-117) U/L Troponin I High Sens 2.9 (<3.5-35.0) ng/L Total Protein 7.5 (6.5-8.0) g/dL Albumin 4.4 (3.5-5.0) g/dL Hold Yellow Top See Note Urine Color Yellow Urine Appearance Clear Urine pH 6.5 (5.0-9.0) Ur Specific [place] 1.015 (1.005-1.025) Urine Protein Negative (Neg-Trace) mg/dL Urine Glucose (UA) Negative (Negative) mg/dL Urine Ketones Trace (Negative) mg/dL Urine Blood Negative (Negative) Urine Nitrite Negative (Negative) Ur Leukocyte Esterase Negative (Negative) Urine Opiates Screen Not Detected (Not Detect) Ur Buprenorphine Scrn Not Detected (Not Detect) ng/mL Ur Oxycodone Screen Not Detected (Not Detect) ng/mL Urine Methadone Screen Not Detected (Not Detect) ng/mL Urine Fentanyl Screen Not Detected (Not Detect) Ur Barbiturates Screen Not Detected (Not Detect) Valproic Acid 62.6 (50.0-100.0) mcg/mL Ur Phencyclidine Scrn Not Detected (Not Detect) Ur Amphetamines Screen Not Detected (Not Detect) U Benzodiazepines Scrn Not Detected (Not Detect) Urine Cocaine Screen Not Detected (Not Detect) U Marijuana (THC) Screen Not Detected (Not Detect) Ethyl Alcohol < 10 mg/dL Influenza Type A (PCR) (Negative) Influenza Type B (PCR) (Negative) RSV RNA Qual (PCR) (Negative) SARS-CoV-2 RNA (RT-PCR) (Negative) 02/28/25 03/02/25 03/04/25 Range/Units 07:19 02:54 05:12 WBC 5.6 (4.8-10.8) X10*3/uL RBC 4.33 L (4.60-5.80) X10*6/uL Hgb 12.7 L (14.0-18.0) g/dl Hct 38.7 L (42.0-52.0) % MCV 89.4 (80.0-98.0) fL MCH 29.3 (27.0-33.0) pg MCHC 32.8 (31.0-36.0) g/dl RDW 12.9 (11.0-16.0) % Plt Count 121 L (160-400) X10*3/uL MPV 11.1 (9.4-12.4) fL Immature Gran % (Auto) 1.3 H (0.0-0.4) % Neut % (Auto) 54.9 (45-73) % Lymph % (Auto) 34.1 (20-40) % [place] % (Auto) 9.3 (2-11) % Eos % (Auto) 0.0 (0-4) % Baso % (Auto) 0.4 (0-2) % Lymph # (Auto) 1.9 (1.2-4.9) X10*3/uL [place] # (Auto) 0.5 (0.1-1.2) X10*3/uL Eos # (Auto) 0.0 (0.0-0.4) X10*3/uL Baso # (Auto) 0.0 (0.0-0.2) X10*3/uL Abs Immat Gran (auto) 0.07 H (0.00-0.03) X10*3/uL Absolute Neuts (auto) 3.1 (2.0-8.3) x10*3/uL Absolute Nucleated RBC 0.000 (0.0-0.012) X10*3/uL Nucleated RBC % (auto) 0.0 (0.0-0.2) /100WBC Sodium 142 (135-145) mmol/L Potassium 4.6 (3.3-5.1) mmol/L Chloride 107 (96-108) mmol/L Carbon Dioxide 28 (22-29) mmol/L Anion Gap 12 (12-20) BUN 36 H (9-16) mg/dL Creatinine 1.52 H (0.5-1.4) mg/dL Estim Creat Clear Calc 60.7 Estimated GFR 47 POC Glucose 87 (60-115) mg/dL Random Glucose 91 (60-115) mg/dL Calcium 8.7 (8.4-10.2) mg/dL Magnesium (1.6-2.6) mg/dL Total Bilirubin (0.0-1.0) mg/dL Direct Bilirubin (0.0-0.5) mg/dL AST (5-37) U/L ALT (0-40) U/L Alkaline Phosphatase (39-117) U/L Troponin I High Sens (<3.5-35.0) ng/L Total Protein (6.5-8.0) g/dL Albumin (3.5-5.0) g/dL Hold Yellow Top Urine Color Urine Appearance Urine pH (5.0-9.0) Ur Specific [place] (1.005-1.025) Urine Protein (Neg-Trace) mg/dL Urine Glucose (UA) (Negative) mg/dL Urine Ketones (Negative) mg/dL Urine Blood (Negative) Urine Nitrite (Negative) Ur Leukocyte Esterase (Negative) Urine Opiates Screen (Not Detect) Ur Buprenorphine Scrn (Not Detect) ng/mL Ur Oxycodone Screen (Not Detect) ng/mL Urine Methadone Screen (Not Detect) ng/mL Urine Fentanyl Screen (Not Detect) Ur Barbiturates Screen (Not Detect) Valproic Acid (50.0-100.0) mcg/mL Ur Phencyclidine Scrn (Not Detect) Ur Amphetamines Screen (Not Detect) U Benzodiazepines Scrn (Not Detect) Urine Cocaine Screen (Not Detect) U Marijuana (THC) Screen (Not Detect) Ethyl Alcohol mg/dL Influenza Type A (PCR) NEGATIVE (Negative) Influenza Type B (PCR) NEGATIVE (Negative) RSV RNA Qual (PCR) NEGATIVE (Negative) SARS-CoV-2 RNA (RT-PCR) NEGATIVE (Negative) Independent Interpretation I performed an independent interpretation of an: CT Scan Radiology Impression Discussion of test interpretation with radiology: I have reviewed the radiologist's reading. Radiologist Impression: No new intra-axial mass, midline shift, hydrocephalus, or acute hemorrhage. No significant atrophy-like change or white matter disease. The visualized paranasal sinuses and mastoid air cells are normal. The orbits are within normal limits. There is no acute fracture. IMPRESSION: 1. No acute intracranial findings. Critical Care Time Critical Care Time Critical Care Time: Yes Total Critical Care Time: 50 Attestation: I have personally provided critical care time. Time includes review of lab data, radiology results, discussion with consultants, and monitoring for potential decompensation. Intervention performed as documented. Discharge Plan Discharge Clinical Impression: Catatonia Patient Disposition: Admitted As Inpatient Interventions: Admission Worksheet (ED) Last Done: 03/04/25 17:29 Discharge Date/Time: 03/04/25 17:31
--- NOTE | 2025-02-28 02:58 | PC.NURSE ---
Attempted IV placement x2. Unsuccessful. Awaiting labs results for plan of care
--- OUTSIDE RECORDS SUMMARY | 2025-02-28 03:00 | XMS_ITS | Patient Health Record ---
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 the day before the procedure; Duration: 1 day 05/19/2021 Active [place] Carbonate 300 MG Tablet Oral; Duration: 30 Active Tamsulosin HCl 0.4 MG Capsule Oral; Duration: 90 Active Immunizations Vaccine Route Administration Date Status Comme nts Influenza Unknown 11/25/2020 Administered Social History Tobacco Use: Social History Observation Description Date Details (start date - stop date) Never Smoker NA - NA Social History Drugs/Alcohol: Social Info Question Answer Notes Alcohol Screen Did you have a drink containing alcohol in the past year? 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 of oral hypoglycemic drugs (Z79.84) Active confirmed Plan Of Treatment Future Test Test Name Order Date COLONOSCOPY 05/19/2021 Insurance Providers Payer Name Payer Address Payer Phone Subscriber Number Group Number Insured Name Patient Relationship to Insured Coverage Start Date Coverage End Date MEDICARE OF [place] [address] [place] [address] [id number] MULUGETA ALVAREZ Self - patient is the insured MEDICAID OF [facility] [address] [place] [address] [phone] [id number] MULUGETA ALVAREZ Self - patient is the insured Medical (General) History Medical History History ICD Code diabetes mellitus hypertension schizophrenia BPH Surgical History Surgery Date(Month/Year)
[2025-02-28 03:13] LABS: Alanine Aminotransferase 18 U/L (0-40); Albumin Level 4.4 g/dL (3.5-5.0); Alkaline Phosphatase 68 U/L (39-117); Anion Gap 18 (12-20); Aspartate Amino Transferase 27 U/L (5-37); Blood Urea Nitrogen 33 mg/dL (9-16); Calcium 9.0 mg/dL (8.4-10.2); Carbon Dioxide 22 mmol/L (22-29); Chloride 109 mmol/L (96-108); Creatinine Clr Calc Pharmacy 63.2; Estimated Glomerular Filt Rate 49; Magnesium 2.4 mg/dL (1.6-2.6); Potassium 5.1 mmol/L (3.3-5.1); Sodium 144 mmol/L (135-145); Total Protein 7.5 g/dL (6.5-8.0)
[2025-02-28 03:32] LABS: MANUAL DIFF FLAG NO
[2025-02-28 03:33] LABS: Hematocrit 41.3 % (42.0-52.0); Hemoglobin 13.2 g/dl (14.0-18.0); Imm Gran Abs Auto 0.07 X10*3/uL (0.00-0.03); Imm Gran Pct Auto 1.4 % (0.0-0.4); Lymphocytes Absolute Auto 1.5 X10*3/uL (1.2-4.9); Mean Corpuscular HGB Conc 32.0 g/dl (31.0-36.0); Mean Corpuscular Hemoglobin 29.3 pg (27.0-33.0); Mean Corpuscular Volume 91.6 fL (80.0-98.0); NRBC Abs Auto 0.000 X10*3/uL (0.0-0.012); NRBC Pct Auto 0.0 /100WBC (0.0-0.2); Platelet Count 112 X10*3/uL (160-400); Red Blood Count 4.51 X10*6/uL (4.60-5.80); White Blood Count 5.0 X10*3/uL (4.8-10.8)
[2025-02-28 04:17] LABS: Troponin-I High Sensitivity 2.9 ng/L (<3.5-35.0)
--- NOTE | 2025-02-28 05:54 | PC.NURSE ---
Straight catheterization performed. PT tolerated well. 600mls of urine output noted. Urine sample sent down to lab for analysis.
[2025-02-28 05:55] LABS: Appearance Urine Clear; Glucose Urine UA Negative (Negative); PH 6.5 (5.0-9.0); Specific Gravity - Urine 1.015 (1.005-1.025)
[2025-02-28 06:05] LABS: Cannabinoid Screen Urine Not Detected (Not Detect)
[2025-02-28 07:22] LABS: Glucose, Whole Blood 87 mg/dL (60-115)
--- NOTE | 2025-02-28 07:41 | PC.NURSE ---
Pt is able to sit up, follow commands to take sips of water. Has coughed a little with initial sips but improved. Is stating his name and choice of juice. Skin pale, warm dry. States his name. No complaints at this time.
--- NOTE | 2025-02-28 11:23 | PC.NURSE ---
Received reprt, assumed care. Pt awake, alert, denies pain, but states I dont feel good Pt unable to verbalize exactly what doesnt feel well. Care team tiger text to update pts condition for eval.
--- NOTE | 2025-02-28 11:33 | PC.NURSE ---
Update to RN at [facility], Sandra [phone] ([facility]). direct line is [phone]
--- NOTE | 2025-02-28 14:24 | MHC.EDTECH ---
encourage pt lunch pt refused the meal, offered the pudding and a cup of ice water. pt did ate the pudding/ finished the cup of water
--- NOTE | 2025-02-28 14:30 | PC.NURSE ---
Pt given lunch tray, despite pt being encouraged to eat, pt ate very little. Encouraged po liquids. Provider aware.
--- NOTE | 2025-02-28 15:00 | PC.NURSE ---
Pt placed on video monitor device for safety.
--- NOTE | 2025-02-28 15:24 | PM.PSYCN ---
History of Present Illness Date of Service: 02/28/2025 Chief Complaint: ams Sources of Information: patient interviewed, chart reviewed and crisis/core team assessment reviewed HPI Narrative: Mr. Tenorio is a 59 year-old male with hx of schizophrenia who was brought via EMS from due to presenting as mute, staring covered in feces. Pt known to [facility] through several admission and treatment resistance catatonia. Pt presents with s/s of catatonia including mutism, staring. Pt seen in the ED. He is lying in bed. He is noted to have some latecy of response. He reports he does not know why he is here. When asked about voices, he reports yes, hearing voices. When asked to elaborate, he is mute. Additional questions, pt was mostly staring at this securities underwriter. Past Psychiatric History: Inpatient: M5 04/17/2023-05/02/2023; M3 03/06/2023-02/2023; 01/04/2023-02/02/2023; 06/13/2022-07/19/2022; S1 12/2023; 04/2024; S1 on 07/2024-10/08/2024 (after prolonged admission for catatonia) OP: [facility] Lexi Barajas Past medication trials: clozaril, ativan, sertraline, olanzapine, Ketamine (for catatonia) [facility] Medical History Tardive dyskinesia Hospital discharge follow-up Mild sleep apnea Nocturnal hypoxia Routine medical exam Joint inflammation of right hand and wrist Status post fall Adult general medical exam Screening for colon cancer Screening for prostate cancer Cough BPH (benign prostatic hyperplasia) Surgical History History of colonoscopy (~06/15/21) History of tooth extraction History of root canal procedure Family History: none Social History: never . Currently lives in from [facility]. Trauma History: unknown Diagnostics Vital Signs (24Hr): Vital Signs - 24 hr 02/28/25 02:51 02/28/25 06:38 02/28/25 08:35 Temperature 97.8 F 98 F Pulse Rate 79 72 78 Respiratory Rate 16 20 18 Blood Pressure 137/75 130/70 124/67 Pulse Oximetry 95 98 98 Oxygen Delivery Method Room Air Room Air Room Air 02/28/25 14:22 Temperature 98.4 F Pulse Rate 77 Respiratory Rate 14 Blood Pressure 127/75 Pulse Oximetry 95 Oxygen Delivery Method Room Air BMI result Body Mass Index 28.1 Labs 02/28/25 03:26 02/28/25 02:51 Labs: Laboratory Results - last 48 hr 02/28/25 02/28/25 02/28/25 02:51 03:26 05:48 WBC 5.0 RBC 4.51 L Hgb 13.2 L Hct 41.3 L MCV 91.6 MCH 29.3 MCHC 32.0 RDW 13.2 Plt Count 112 L D MPV 11.6 Immature Gran % (Auto) 1.4 H Neut % (Auto) 60.2 Lymph % (Auto) 29.0 Noble % (Auto) 9.0 Eos % (Auto) 0.0 Baso % (Auto) 0.4 Lymph # (Auto) 1.5 Noble # (Auto) 0.5 Eos # (Auto) 0.0 Baso # (Auto) 0.0 Abs Immat Gran (auto) 0.07 H Absolute Neuts (auto) 3.0 Absolute Nucleated RBC 0.000 Nucleated RBC % (auto) 0.0 Sodium 144 Potassium 5.1 Chloride 109 H Carbon Dioxide 22 Anion Gap 18 BUN 33 H Creatinine 1.46 H Estim Creat Clear Calc 63.2 Estimated GFR 49 POC Glucose Random Glucose 92 Calcium 9.0 Magnesium 2.4 Total Bilirubin 0.3 Direct Bilirubin 0.1 AST 27 ALT 18 Alkaline Phosphatase 68 Troponin I High Sens 2.9 Total Protein 7.5 Albumin 4.4 Hold Yellow Top See Note Urine Color Yellow Urine Appearance Clear Urine pH 6.5 Ur Specific [place] 1.015 Urine Protein Negative Urine Glucose (UA) Negative Urine Ketones Trace Urine Blood Negative Urine Nitrite Negative Ur Leukocyte Esterase Negative Urine Opiates Screen Not Detected Ur Buprenorphine Scrn Not Detected Ur Oxycodone Screen Not Detected Urine Methadone Screen Not Detected Urine Fentanyl Screen Not Detected Ur Barbiturates Screen Not Detected Valproic Acid 62.6 Ur Phencyclidine Scrn Not Detected Ur Amphetamines Screen Not Detected U Benzodiazepines Scrn Not Detected Urine Cocaine Screen Not Detected U Marijuana (THC) Screen Not Detected Ethyl Alcohol < 10 02/28/25 07:19 WBC RBC Hgb Hct MCV MCH MCHC RDW Plt Count MPV Immature Gran % (Auto) Neut % (Auto) Lymph % (Auto) Noble % (Auto) Eos % (Auto) Baso % (Auto) Lymph # (Auto) Noble # (Auto) Eos # (Auto) Baso # (Auto) Abs Immat Gran (auto) Absolute Neuts (auto) Absolute Nucleated RBC Nucleated RBC % (auto) Sodium Potassium Chloride Carbon Dioxide Anion Gap BUN Creatinine Estim Creat Clear Calc Estimated GFR POC Glucose 87 Random Glucose Calcium Magnesium Total Bilirubin Direct Bilirubin AST ALT Alkaline Phosphatase Troponin I High Sens Total Protein Albumin Hold Yellow Top Urine Color Urine Appearance Urine pH Ur Specific [place] Urine Protein Urine Glucose (UA) Urine Ketones Urine Blood Urine Nitrite Ur Leukocyte Esterase Urine Opiates Screen Ur Buprenorphine Scrn Ur Oxycodone Screen Urine Methadone Screen Urine Fentanyl Screen Ur Barbiturates Screen Valproic Acid Ur Phencyclidine Scrn Ur Amphetamines Screen U Benzodiazepines Scrn Urine Cocaine Screen U Marijuana (THC) Screen Ethyl Alcohol Mental Status Exam Mental Status Exam Narrative: Appearance: wearing hospital gown, fair hygiene, in NAD. He is lying down on stretcher, staring. Behavior: engagement limited due to catatonia. Psychomotor: retardation Speech: latency of response noted, soft tone, minimally spontaneous TP: thought blocking SI: none HI: none Appears internally preoccupied Insight/judgment: impaired x 2. Medications Allergies Allergies Allergy/AdvReac Type Severity Reaction Status Date / Time No Known Allergies (NKA) Allergy Unknown NONE Verified 02/28/25 02:52 Assessment & Plan Assessment & Plan (1) Schizoaffective disorder: Status: Acute Code(s): F25.9 - Schizoaffective disorder, unspecified (2) Catatonia: Status: Acute Code(s): F06.1 - Catatonic disorder due to known physiological condition Plan Mr. Tenorio is a 59 year-old male with hx of schizophrenia, treatment resistant catatonia. Well known to [facility], has failed ECT, benzos for catatonia. Has partially responded to ketamine. PLAN 1. Need inpatient level of care as catatonia is potentially life threatening if not treated. 2. can try ativan 1mg PO TID but historically he has not responded well to oral ativan. country wide shortage of IM/IV ativan. Total time managing care of this patient today ____ minutes.
--- NOTE | 2025-02-28 16:09 | MHC.CARE ---
CONTACTS: Father/HCP - Benjamin Tenorio - [place]: ([phone])?Cell Cigarette Making Machine Catcher: Alex [phone] or Sandra [phone] Nurse - [facility] - Sandra - ([phone]) VNA - [facility] - ([phone]) Psychiatrist - [facility] - Geovanna Adams - ([phone]) Therapist - [facility] - Wanda Garrett - ([phone]) ACCS Penology Professor - Debi - ([phone]) [facility] - Customer Service Sales Associate - Floridalma - ([phone]) PCP - Dr. Valeria Smith - [facility] - ([phone]) T/w has left VM with canteen manager, ACCS CM
--- NOTE | 2025-02-28 16:23 | MHC.CARE ---
Spoke with [facility] RN, she will have patient's mediation list faxed to CARE team office.
--- NOTE | 2025-02-28 16:51 | MHC.EDTECH ---
1500 bed change to hospital bed, incon of stool, care given. pt repositioned.
--- NOTE | 2025-02-28 18:09 | PC.NURSE ---
Pt much more alert, requesting meal tray, pt feeding himself
--- NOTE | 2025-03-01 05:45 | PC.NURSE ---
pt resting comfortably throughout the night, no apparent distress noted. used the urinal at bedside appropriately. call contreras w/in reach. bed alarm on, camera in place for safety.
[2025-03-01 06:00] VITALS: BP 123/71; PULSE 77; TEMP 36.5; O2SAT 94
--- NOTE | 2025-03-01 07:29 | PC.NURSE ---
Assumed care of pt this AM. Pt alert, oriented in bed. Answering questions appropriately and able to make needs known. Making good eye contact. Reports good sleep last night, ate breakfast this morning. Agreeable to plan for care. Denies any pain, discomfort at this time.
--- NOTE | 2025-03-01 09:07 | PC.NURSE ---
med rec completed according to paperwork from [facility], provider notified for new orders.
--- NOTE | 2025-03-01 10:45 | PC.NURSE ---
pharmacy at bedside for med rec
--- NOTE | 2025-03-01 11:39 | PHA.MEDREC ---
Addendum entered by Stephanie Nuno [facility] 03/01/25 14:05: spoke with Sandra from [facility]. confirmed last dose of clozaril to be 02/27/25. also clarified that the patient was to get venlafaxine 75 mg daily for 3 days then increase to 150 mg daily. Patient was started on 75 mg on 02/27. also clarified that the patient is still on mirtazepine 1 and a half tablets (22.5 mg) at 8 pm. Original Note: Pharmacy Consult ? Medication Reconciliation Pharmacy has completed the medication reconciliation. Confirmed medication list with list from other facility. Pharmacist to review Venlafaxine dosing.
[2025-03-01 13:29] VITALS: BP 112/68; PULSE 90; RESP 18; TEMP 36.7; O2SAT 91
--- NOTE | 2025-03-01 15:20 | PC.NURSE ---
assumed care of pt at 1500. report received from Michelle CUEVAS. pt medicated per mar with po medications, took whole with juice no issues. care team enterprise resource planning consultant at bedside. pt requesting a shower will coordinate with tech and pod staff. camera in room. plan of care continues.
--- NOTE | 2025-03-01 15:40 | PC.NURSE ---
pt off to shower accompanied by Rahul PCT
--- NOTE | 2025-03-01 15:52 | MHC.EDTECH ---
Bedding changed and cleaned while Pt in pod taking a shower.
[2025-03-01 19:14] VITALS: BP 123/66; PULSE 92; RESP 16; TEMP 36.6; O2SAT 94
--- NOTE | 2025-03-01 19:21 | MHC.EDTECH ---
Pt ate 100% dinner. This tech accompanied Pt to bathroom- Pt walked with steady gait. Vital signs updated. Call contreras within reach.
[2025-03-01] MEDS: Milk of Magnesia 30 ML ORAL.SUSP 5 ML PO (20:27)
--- NOTE | 2025-03-01 20:28 | PC.NURSE ---
Pt resting comfortably in hospital bed, has camera at bedside. Pt alert and orientedx3, pt denies pain. Breathing unlabored. skin pwd. Pt medicated at charted. VSS. Call contreras within reach. Plan of care ongoing.
[2025-03-01 22:51] VITALS: BP 102/64; PULSE 80; RESP 18; TEMP 36.7; O2SAT 92
[2025-03-02 02:50] VITALS: PULSE 80; RESP 20; O2SAT 91
--- NOTE | 2025-03-02 02:51 | PC.NURSE ---
Pt up out of bed a few times, disoriented. Trying to put his clothes on, and referring to a chair in the room as the dentist chair . Pt re-oriented and helped back into bed. Pt notes to have wet, gurgling sounding respirations. Breathing unlabored. spO2 90-91% on room air. Dr. Reagan made aware. Plan for viral swabs & CXR.
[2025-03-02 03:46] LABS: Resp Syncy Virus RNA Qual PCR NEGATIVE (Negative); SARS COV2 PCR INHOUSE NEGATIVE (Negative)
[2025-03-02 06:04] VITALS: BP 102/52; PULSE 76; RESP 20; TEMP 36.6; O2SAT 94
--- NOTE | 2025-03-02 10:37 | PC.NURSE ---
delay in AM medication bc pt sleeping and allowed to rest
[2025-03-02] MEDS: Venlafaxine HCl ER 75 MG CAP.ER.24H PO (12:30)
[2025-03-02] MEDS: Ferrous Sulfate 324 MG TABLET.DR PO (12:30)
[2025-03-02 15:52] VITALS: BP 100/57; PULSE 73; RESP 16; TEMP 36.9; O2SAT 98
--- NOTE | 2025-03-02 19:29 | PC.NURSE ---
Assumed care of patient, pt appears to be sleeping respirations even and unlabored w/ no signs of distress, camera in place.
[2025-03-02 20:52] VITALS: BP 96/55; PULSE 73; RESP 16; TEMP 36.4; O2SAT 92
[2025-03-02] MEDS: Milk of Magnesia 30 ML ORAL.SUSP 5 ML PO (20:55)
--- NOTE | 2025-03-02 20:59 | PC.NURSE ---
pt medicated per may, tolerated whole well with water. pt ambulatory to bathroom with steady gait
--- NOTE | 2025-03-03 06:08 | PC.NURSE ---
pt found to be at 88% on room air while sleeping, pt placed on 2lpm of o2 via NC w/ improvement. notified.
[2025-03-03 06:14] VITALS: BP 106/56; PULSE 88; RESP 14; TEMP 36.8; O2SAT 88
--- NOTE | 2025-03-03 08:04 | PC.NURSE ---
pt is awake, pt does know that he is at the [facility] and he also knows is February , assisted in setting up with his breakfast marilia, pt denies pain at this time, calm and cooperative,
[2025-03-03 09:31] VITALS: BP 113/65; PULSE 73; RESP 20; TEMP 36.5; O2SAT 96
[2025-03-03] MEDS: Ferrous Sulfate 324 MG TABLET.DR PO (09:33)
[2025-03-03 12:09] VITALS: BP 121/77; PULSE 74; RESP 16; O2SAT 96
--- NOTE | 2025-03-03 12:21 | P.CNPS_ITS ---
History of Present Illness Date of Service: 03/03/2025 Chief Complaint: ams Sources of Information: patient interviewed, chart reviewed and crisis/core team assessment reviewed HPI Narrative: Mr. Tenorio is a 59 year-old male with hx of schizophrenia, treatment-resistant catatonia who was brought via EMS after he was found sitting in feces and incontinent. He was not talking or moving. Pt extensive hx of severe s/s of catatonia (both excitatory and hypoactive), resistant to benzodiazepine, failed ECT tx as well. He has been receiving tx of ketamine. Interim Hx: pt with less delayed in response. He reports I feel better. When asked to elaborate, he looks at this junior underwriter. He is not able to provide more information. He denies SI/HI. When asked about voices he states I don't hear voices. However, he had reported to this junior underwriter that he was hearing voices although couldn't elaborate back on 02/28. He has been taking medications as prescribed. He was started on 02/28 on ativan 1mg po TID. Although pt appears improved from presentation, given severe form of catatonia and limited therapeutic benefit, will still recommend inpt to make sure he is improving and that improvement is sustainable. Past Psychiatric History: Inpatient: M5 04/17/2023-05/02/2023; M3 03/06/2023-02/2023; 01/04/2023-02/02/2023; 06/13/2022-07/19/2022; S1 12/2023; 04/2024; S1 on 07/2024-10/08/2024 (after prolonged admission for catatonia) OP: [facility] Lexi Barajas Past medication trials: clozaril, ativan, sertraline, olanzapine, Ketamine (for catatonia) FORMERLY [facility] Medical History Tardive dyskinesia Hospital discharge follow-up Mild sleep apnea Nocturnal hypoxia Routine medical exam Joint inflammation of right hand and wrist Status post fall Adult general medical exam Screening for colon cancer Screening for prostate cancer Cough BPH (benign prostatic hyperplasia) Surgical History History of colonoscopy (~06/15/21) History of tooth extraction History of root canal procedure Family History: none Social History: never . Currently lives in from [facility]. Trauma History: unknown Diagnostics Vital Signs (24Hr): Vital Signs - 24 hr 03/02/25 15:52 03/02/25 20:52 03/03/25 06:14 Temperature 98.4 F 97.6 F 98.3 F Pulse Rate 73 73 88 Respiratory Rate 16 16 14 Blood Pressure 100/57 L 96/55 L 106/56 L Pulse Oximetry 98 92 88 L Oxygen Delivery Method Room Air Room Air 03/03/25 09:31 03/03/25 12:09 Temperature 97.7 F Pulse Rate 73 74 Respiratory Rate 20 16 Blood Pressure 113/65 121/77 Pulse Oximetry 96 96 Oxygen Delivery Method Room Air Room Air BMI result Body Mass Index 28.1 Labs 02/28/25 03:26 02/28/25 02:51 Labs: Laboratory Results - last 48 hr 03/02/25 02:54 Influenza Type A (PCR) NEGATIVE Influenza Type B (PCR) NEGATIVE RSV RNA Qual (PCR) NEGATIVE SARS-CoV-2 RNA (RT-PCR) NEGATIVE Mental Status Exam Mental Status Exam Narrative: Appearance: wearing hospital gown, fair hygiene, in NAD. He is lying down on stretcher, staring. Behavior: engagement limited due to poverty of thought Psychomotor: retardation Speech: ;ess latency of response noted, soft tone, minimally spontaneous TP: thought blocking SI: none HI: none Appears internally preoccupied Delusions: no overt delusional content noted or reported. Insight/judgment: impaired x 2. Medications Medications Current Medications Acetaminophen (Acetaminophen 325 Mg Tablet) 650 mg PO Q6H PRN PRN Reason: Headache/Pain, Scale 1-10 Aripiprazole (Aripiprazole 10 Mg Tablet) 10 mg PO DAILY@1730 [facility] Last Admin: 03/02/25 17:52 Dose: 10 mg Ascorbic Acid (Ascorbic Acid 500 Mg Tablet) 500 mg PO DAILY [facility] Last Admin: 03/03/25 09:33 Dose: 500 mg Clozapine (Clozapine 25 Mg Tablet) 25 mg PO DAILY@1999 [facility] Last Admin: 03/02/25 20:55 Dose: 25 mg Clozapine (Clozapine 100 Mg Tablet) 300 mg PO DAILY@1999 [facility] Last Admin: 03/02/25 20:54 Dose: 300 mg Divalproex Sodium (Divalproex Sodium 500 Mg Tablet.) 1,000 mg PO DAILY@1999 [facility] Last Admin: 03/02/25 20:55 Dose: 1,000 mg Ferrous Sulfate (Ferrous Sulfate 324 Mg Tablet.Dr) 324 mg PO DAILY [facility] Last Admin: 03/03/25 09:33 Dose: 324 mg Finasteride (Finasteride 5 Mg Tablet) 5 mg PO DAILY [facility] Last Admin: 03/03/25 10:45 Dose: 5 mg Lorazepam (Lorazepam 1 Mg Tablet) 1 mg PO TID [facility] Last Admin: 03/03/25 09:33 Dose: 1 mg Magnesium Hydroxide (Milk Of Magnesia 30 Ml Oral.Susp) 5 ml PO BEDTIME [facility] Last Admin: 03/02/25 20:55 Dose: 5 ml Memantine (Memantine Hcl 5 Mg Tablet) 5 mg PO DAILY [facility] Last Admin: 03/03/25 09:33 Dose: 5 mg Mirtazapine (Mirtazapine 7.5 Mg Tablet) 22.5 mg PO BEDTIME@1999 [facility] Last Admin: 03/02/25 20:54 Dose: 22.5 mg Olanzapine (Olanzapine Odt 10 Mg Tab.Rapdis) 5 mg TRANSLINGU BID PRN PRN Reason: agitation Polyethylene Glycol (Polyethylene Glycol 3350 17 Gm Powd.Pack) 17 gm PO DAILY [facility] Last Admin: 03/03/25 09:33 Dose: 17 gm Pramipexole Dihydrochloride (Pramipexole Di-Hcl 0.25 Mg Tablet) 0.5 mg PO TID [facility] Last Admin: 03/03/25 09:33 Dose: 0.5 mg Sertraline HCl (Sertraline Hcl 100 Mg Tablet) 100 mg PO DAILY [facility] Last Admin: 03/03/25 09:33 Dose: 100 mg Tamsulosin HCl (Tamsulosin Hcl 0.4 Mg Capsule) 0.8 mg PO BEDTIME [facility] Last Admin: 03/02/25 20:55 Dose: 0.8 mg Thiamine HCl (Thiamine Hcl 100 Mg Tablet) 100 mg PO DAILY [facility] Last Admin: 03/03/25 09:33 Dose: 100 mg Trazodone HCl (Trazodone Hcl 50 Mg Tablet) 50 mg PO BEDTIME [facility] Last Admin: 03/02/25 20:56 Dose: 50 mg Venlafaxine HCl (Venlafaxine Hcl Er 150 Mg Cap.Er.24h) 150 mg PO BEDTIME [facility] Allergies Allergies Allergy/AdvReac Type Severity Reaction Status Date / Time No Known Allergies (NKA) Allergy Unknown NONE Verified 02/28/25 02:52 Assessment & Plan Assessment & Plan (1) Schizoaffective disorder: Status: Acute Code(s): F25.9 - Schizoaffective disorder, unspecified (2) Catatonia: Status: Acute Code(s): F06.1 - Catatonic disorder due to known physiological condition Plan Mr. Tenorio is a 59 year-old male with hx of schizophrenia, treatment resistant catatonia. Well known to [facility], has failed ECT, benzos for catatonia. Has partially responded to ketamine. PLAN 03/03 although pt presents with less latency of response, still recommend inpatient level of care for further management and stabilization given severe form of illness that he presents with. Total time managing care of this patient today ____ minutes.
--- NOTE | 2025-03-03 13:34 | PC.NURSE ---
PT currently sitting on side of bed eating lunch with out any assistance. Able to walk to BR independently. Psych admissions to come to eval patient to determine the best unit for patient's admission.
--- NOTE | 2025-03-03 15:24 | PC.NURSE ---
t/w spoke w/ Yovana @ [facility] whom was asking plan of care for patient. Yovana unaware pt was IPLOC BS, asking why patient was being admitted. Yovana had several questions regarding pt, t/w was attempting to pull up pt's chart while asking Yovana to share all of her questions at once, Yovana preferred to end our conversation and call back later.
[2025-03-03 15:56] VITALS: BP 105/62; PULSE 80; RESP 16; TEMP 36.7; O2SAT 93
[2025-03-03 16:13] VITALS: BP 108/61; PULSE 77; RESP 18; TEMP 36.8; O2SAT 95
[2025-03-03] MEDS: Venlafaxine HCl ER 150 MG CAP.ER.24H PO (20:31)
[2025-03-03] MEDS: Milk of Magnesia 30 ML ORAL.SUSP 5 ML PO (20:31)
[2025-03-03 22:41] VITALS: BP 103/51; PULSE 81; RESP 16; TEMP 36.8; O2SAT 92
[2025-03-04 05:16] LABS: MANUAL DIFF FLAG NO
[2025-03-04 05:20] LABS: Hematocrit 38.7 % (42.0-52.0); Hemoglobin 12.7 g/dl (14.0-18.0); Imm Gran Abs Auto 0.07 X10*3/uL (0.00-0.03); Imm Gran Pct Auto 1.3 % (0.0-0.4); Lymphocytes Absolute Auto 1.9 X10*3/uL (1.2-4.9); Mean Corpuscular HGB Conc 32.8 g/dl (31.0-36.0); Mean Corpuscular Hemoglobin 29.3 pg (27.0-33.0); Mean Corpuscular Volume 89.4 fL (80.0-98.0); NRBC Abs Auto 0.000 X10*3/uL (0.0-0.012); NRBC Pct Auto 0.0 /100WBC (0.0-0.2); Platelet Count 121 X10*3/uL (160-400); Red Blood Count 4.33 X10*6/uL (4.60-5.80); White Blood Count 5.6 X10*3/uL (4.8-10.8)
[2025-03-04 05:31] LABS: Anion Gap 12 (12-20); Blood Urea Nitrogen 36 mg/dL (9-16); Calcium 8.7 mg/dL (8.4-10.2); Carbon Dioxide 28 mmol/L (22-29); Chloride 107 mmol/L (96-108); Creatinine Clr Calc Pharmacy 60.7; Estimated Glomerular Filt Rate 47; Potassium 4.6 mmol/L (3.3-5.1); Sodium 142 mmol/L (135-145)
--- NOTE | 2025-03-04 07:43 | PC.NURSE ---
Care of Pt assumed at change of shift (0700.) Pt is currently resting quietly with eye closed, snoring can be heard. Breakfast tray at beside. Camera in place. NAD noted. Awaiting IPLOC assignment.
[2025-03-04] MEDS: Ferrous Sulfate 324 MG TABLET.DR PO (12:22)
[2025-03-04 14:40] VITALS: BP 120/53; PULSE 80; RESP 14; TEMP 36.8; O2SAT 92
[2025-03-04 17:45] VITALS: BP 116/64; PULSE 81; RESP 16; TEMP 36.7; O2SAT 95
--- NOTE | 2025-03-04 18:57 | PC.ADMIT ---
59 y/o male admitted to at 1730 from [facility] after pt was [facility] 02[facility]28/25 [facility] to r/o catatonia. On arrival pt was found covered in urine and feces. Pt was not verbally responding, however was able to follow commands. On arrival to ED pt was started on Ativan 1mg TID. Pt became more verbal while in ED, however given pt's hx of severe catatonia decision was made to admit to psych for further management and stabilization. On arrival to unit pt was easy to engage, and responding verbally during interactions. No thought blocking noted. Affect was broad and pt noted to laugh and smile appropriately during admission process, especially when pt greeted familiar staff. Pt reported that he did not remember much of events leading up to admission. Pt stated I don't remember much before I came to the ED. I only remember the ambulance arriving. Pt receptive to reports of his presentation prior to admission. However pt stated I thought I was doing well. I was taking my medications. I was sleeping good. I was eating good. I felt fine. Pt stated he did not remember feeling a change in his mental status, and added that he felt this happened all of a sudden . Pt denied SI/HI/AVH. Pt reportedly informed ED that he experienced AH but during admission process pt denied AVH and stated he did not remember reporting that to ED. Pt reported he resided in his penitentiary for less than a year, and stated that he did not like it as he felt the other residents were mean to him because I don't talk a lot. Pt has a dx of Schizoaffective D/O and catatonia. Pt has hx of failed ECT and partially responded to Ketamine in the past. Pt well known to [facility] with recents admits on M3 and S1. Pt denied substance use, and denied nicotine use. Utox negative. Pt reported he received Influenza vaccine two months ago. Skin check remarkable for superficial scabs to right chest, and reddened right eye. Pt denied pain/discomfort. Covering provider Elis Amos MONEY ORDER CLERK assessed pt's right eye. Labs remarkable for elevated BUN (36) and Creatinine (152). No medical intervention ordered as elevated BUN/creatinine was reportedly pt's baseline chronic renal injury. Recommendations received for pt to follow up with his renal doctor outpatient. Pt completed safety tool and signed releases for [facility] providers and PCP. Pt refused to sign a release for his father (HCP). Pt oriented to unit and placed on 15 minute checks.
[2025-03-04 19:45] VITALS: BP 115/61; PULSE 75; RESP 16; O2SAT 95
[2025-03-04 19:47] VITALS: BMI 29.1
[2025-03-04] MEDS: Milk of Magnesia 30 ML ORAL.SUSP 5 ML PO (20:29)
[2025-03-04] MEDS: Venlafaxine HCl ER 150 MG CAP.ER.24H PO (20:29)
[2025-03-05 08:00] VITALS: BP 130/73; PULSE 96; TEMP 36.4; O2SAT 93
[2025-03-05] MEDS: Ferrous Sulfate 324 MG TABLET.DR PO (08:18)
[2025-03-05 09:29] LABS: Alanine Aminotransferase 16 U/L (0-40); Albumin Level 4.4 g/dL (3.5-5.0); Alkaline Phosphatase 59 U/L (39-117); Anion Gap 11 (12-20); Aspartate Amino Transferase 17 U/L (5-37); Blood Urea Nitrogen 31 mg/dL (9-16); Calcium 9.3 mg/dL (8.4-10.2); Carbon Dioxide 31 mmol/L (22-29); Chloride 105 mmol/L (96-108); Cholesterol 181 mg/dL (<200); Creatinine Clr Calc Pharmacy 59.8; Estimated Glomerular Filt Rate 47; HDL Cholesterol 46 mg/dL (>40); Potassium 4.6 mmol/L (3.3-5.1); Sodium 142 mmol/L (135-145); Total Protein 7.0 g/dL (6.5-8.0); Triglycerides 96 mg/dL (<150)
--- NOTE | 2025-03-05 11:04 | HO.PSYADMNOT ---
HPI Date of Service: 03/05/25 Chief Complaint: Catatonia Sources of Information: patient interviewed, chart reviewed and crisis/core team assessment reviewed HPI Subjective Notes: [place] Warning and Conditional Voluntary Narrative: Patient seen at 12 noon on 03/05/2025 Mr. Tenorio is a 59 year-old male with a hx of schizoaffective disorder, multiple bouts of catatonia, who was recently discharged from on 12/30/2024 after prolonged admission for catatonia. Patient was transferred from his [place] [facility] care facility instead of catatonia, covered in feces and urine, initially not verbally responding but was able to follow commands. Patient was started on Ativan 1 mg t.i.d. which although not typically that helpful for this patient, seems to have helped treat his catatonic symptoms and patient began eating and talking. On M5 unit, patient says he is not sure what happened. He said he was taking his medications as far as I know and then only remembers being taken to the hospital but is unaware of any of the circumstances surrounding it. He says he is feeling much better now and thinks that he is getting close to being back to baseline. Agrees with extending ketamine treatments as that has helped most in the past. Past Psychiatric History: Inpatient: M5 04/17/2023-05/02/2023; M3 03/06/2023-02/2023; 01/04/2023-02/02/2023; 06/13/2022-07/19/2022; S1 12/2023; 04/2024; S1 on 07/2024-10/08/2024 (after prolonged admission for catatonia) OP: [facility] Past medication trials: clozaril, ativan, sertraline, olanzapine, Ketamine (for catatonia) Medical Evaluation Reviewed: Yes [facility] Medical History Tardive dyskinesia Hospital discharge follow-up Mild sleep apnea Nocturnal hypoxia Routine medical exam Joint inflammation of right hand and wrist Status post fall Adult general medical exam Screening for colon cancer Screening for prostate cancer Cough BPH (benign prostatic hyperplasia) Surgical History History of colonoscopy (~06/15/21) History of tooth extraction History of root canal procedure Family History: none Social History: never . Currently lives in from [facility]. Substance History: No current substance abuse Trauma History: unknown Diagnostics Vital Signs (24Hr): Vital Signs - 24 hr 03/04/25 14:40 03/04/25 17:45 03/04/25 19:45 Temperature 98.2 F 98.1 F Pulse Rate 80 81 75 Respiratory Rate 14 16 16 Blood Pressure 120/53 L 116/64 115/61 Pulse Oximetry 92 95 95 Oxygen Delivery Method Room Air Room Air Room Air 03/05/25 08:00 Temperature 97.6 F Pulse Rate 96 Respiratory Rate Blood Pressure 130/73 Pulse Oximetry 93 Oxygen Delivery Method Room Air BMI result Body Mass Index 29.1 Labs 03/04/25 05:12 03/05/25 08:58 Labs: Laboratory Results - last 48 hr 03/04/25 03/05/25 05:12 08:58 WBC 5.6 RBC 4.33 L Hgb 12.7 L Hct 38.7 L MCV 89.4 MCH 29.3 MCHC 32.8 RDW 12.9 Plt Count 121 L MPV 11.1 Immature Gran % (Auto) 1.3 H Neut % (Auto) 54.9 Lymph % (Auto) 34.1 [place] % (Auto) 9.3 Eos % (Auto) 0.0 Baso % (Auto) 0.4 Lymph # (Auto) 1.9 [place] # (Auto) 0.5 Eos # (Auto) 0.0 Baso # (Auto) 0.0 Abs Immat Gran (auto) 0.07 H Absolute Neuts (auto) 3.1 Absolute Nucleated RBC 0.000 Nucleated RBC % (auto) 0.0 Sodium 142 142 Potassium 4.6 4.6 Chloride 107 105 Carbon Dioxide 28 31 H Anion Gap 12 11 L BUN 36 H 31 H Creatinine 1.52 H 1.52 H Estim Creat Clear Calc 60.7 59.8 Estimated GFR 47 47 Random Glucose 91 107 Estimat Average Glucose 108 Hemoglobin A1c % 5.4 Calcium 8.7 9.3 D Total Bilirubin 0.4 AST 17 ALT 16 Alkaline Phosphatase 59 Total Protein 7.0 Albumin 4.4 Triglycerides 96 Cholesterol 181 LDL Cholesterol, Calc 116 H HDL Cholesterol 46 TSH 0.32 Meds/Allergies Meds Home Medications ?Medication ?Instructions ?Recorded ?Confirmed ?Type magnesium hydroxide 400 mg/5 mL 400 mg PO BEDTIME 03/01/25 03/01/25 History oral suspension (Milk of Magnesia) venlafaxine 150 mg 150 mg PO BEDTIME 03/01/25 03/01/25 History capsule,extended release 24 hr venlafaxine 75 mg tablet,extended 75 mg PO DAILY 03/01/25 03/01/25 History release 24 hr Allergies Allergies Allergy/AdvReac Type Severity Reaction Status Date / Time No Known Allergies (NKA) Allergy Unknown NONE Verified 02/28/25 02:52 Mental Status Exam Mental Status Exam Narrative: Pt is alert and oriented; behavior is calm come quiet, cooperative, friendly on approach; patient is not in distress; dressed in casual attire, disheveled; mood is described as good and affect blunted; eye contact limited; Speech is latent, a little soft; psychomotor retardation present; thought process is goal directed; Thought content is vacuous; otherwise pertinent to relevant topics and without any delusional content, paranoid ideations or grandiosity; denies any SI/HI. Denies AVH and there is no evidence of perceptual disturbance. Patients insight and judgment impaired but improving Assessment & Plan Assessment & Plan (1) Schizoaffective disorder: Status: Acute Code(s): F25.9 - Schizoaffective disorder, unspecified Plan hpi: Mr. Tenorio is a 59 year-old male with a hx of schizoaffective disorder, multiple bouts of catatonia, who was recently discharged from on 12/30/2024 after prolonged admission for catatonia. Patient was transferred from his [place] care facility instead of catatonia, covered in feces and urine, initially not verbally responding but was able to follow commands. Patient was started on Ativan 1 mg t.i.d. which although not typically that helpful for this patient, seems to have helped treat his catatonic symptoms and patient began eating and talking. On M5 unit, patient says he is not sure what happened. He said he was taking his medications as far as I know and then only remembers being taken to the hospital but is unaware of any of the circumstances surrounding it. He says he is feeling much better now and thinks that he is getting close to being back to baseline. Agrees with extending ketamine treatments as that has helped most in the past. Formulation/clinical reasoning: Patient seems to doing better; typically Ativan does not work with patient but it seems to be helping now. Patient will get ketamine treatment starting tomorrow with which he agrees Plan: CV Q 15 minute checks Ativan 1 mg t.i.d. Start ketamine treatments twice a week Continue home medication Patient educated on: diagnosis and medication risk/benefits Informed Consent: understands Reason for continued inpatient stay Substantial Risk for: rapid decompensation Statement Statement: I have reviewed the history and physical and performed a pertinent examination on my patient. No changes have occurred unless specified. If the History and Physical was not performed prior to admission, the Hospitalist's service will be consulted for completing the admission physical. Time Spent With Patient Time: Total time managing care of this patient today ____ minutes.
--- NOTE | 2025-03-05 12:12 | HO.PM.IMCN ---
History of Present Illness Data of Consult Service Date: 03/05/25 Primary Care Provider: Jonn Simth MD HPI Reason for consult: Medical consult 59-year-old male with a past medical history of schizoaffective disorder, tardive dyskinesia, BPH, CKD, depression, catatonia essential hypertension presented via ambulance from his skilled nursing. Per skilled nursing staff they found the patient covered in feces and urine, he is not answering questions follows commands consistent with his previous presentations. While in the ED he had some hypoxia, assessed x-ray, and viral swabs were negative. Likely due to obesity hypoventilation versus sleep apnea. Patient's EKG with a normal sinus rhythm, QTC 425. No leukocytosis, mild anemia. His creatinine noted to be 1.46, normal LFTs, negative troponins, urinalysis negative for UTI valproic level was at a therapeutic level. CT of his head did not show any acute abnormalities. Tox screen negative. Per staff patient's right eye was noticed to be slightly red. On exam, no redness noted. Patient is quiet, answering questions. He denies any distress. Review of Systems Review of Systems: He denies SOB, CP, abdominal pain. He denies any dizziness, headaches or any other concerning symptoms. [facility] Medical History Tardive dyskinesia Hospital discharge follow-up Mild sleep apnea Nocturnal hypoxia Routine medical exam Joint inflammation of right hand and wrist Status post fall Adult general medical exam Screening for colon cancer Screening for prostate cancer Cough BPH (benign prostatic hyperplasia) Family History Mother Cancer Father Kidney agenesis Surgical History History of colonoscopy (~06/15/21) History of tooth extraction History of root canal procedure Social History Household Members: Other Household Members Other:: Medical based skilled nursing Housing: Other Housing Other:: Jail Are you a primary care technician to a significant other at home: No Do you presently have visiting nurse or other home services: Yes Unable to assess alcohol history related to: Unable to respond Alcohol intake: former Comment: 1:1 Patient Tobacco Use Status: Never used Tobacco e-Cigarette/Vaping Use: Never Used Second Hand Smoke Exposure: No Use of substances other than those prescribed or required for medical reasons: Unable to respond Currently Displaying Signs/Symptoms of Drug Intoxication Withdrawal: No Are you made to feel afraid or neglected: No Advance Directives: Yes (Pt's father Benjamin Tenorio) Advance Directives on File: Yes Advance Directives Date on File: 10/02/24 Do you have thoughts of harming others: None Do you have a plan to hurt others: No Plan Recently lost weight without trying: No Nutrition Risks: Difficulty swallowing service: No Current occupational status: employed Sexual orientation: Straight/Heterosexual Cognitive needs: No Hearing needs: No Vision needs: No Meds Allergies Allergy/AdvReac Type Severity Reaction Status Date / Time No Known Allergies (NKA) Allergy Unknown NONE Verified 02/28/25 02:52 Active Medications: Current Medications Acetaminophen (Acetaminophen 325 Mg Tablet) 650 mg PO Q6H PRN PRN Reason: Headache/Pain, Scale 1-10 Acetaminophen (Acetaminophen 325 Mg Tablet) 650 mg PO Q6H PRN PRN Reason: Headache/Pain, Scale 1-10 Al Hydroxide/Mg Hydroxide (Magnesium Hydrox/Alum Hydrox 30 Ml Oral.Susp) 30 ml PO Q6H PRN PRN Reason: Heartburn/Nausea Aripiprazole (Aripiprazole 10 Mg Tablet) 10 mg PO DAILY@1730 [facility] Last Admin: 03/04/25 16:27 Dose: 10 mg Ascorbic Acid (Ascorbic Acid 500 Mg Tablet) 500 mg PO DAILY [facility] Last Admin: 03/05/25 08:18 Dose: 500 mg Clozapine (Clozapine 25 Mg Tablet) 25 mg PO DAILY@1999 [facility] Last Admin: 03/04/25 20:28 Dose: 25 mg Clozapine (Clozapine 100 Mg Tablet) 300 mg PO DAILY@1999 [facility] Last Admin: 03/04/25 20:29 Dose: 300 mg Divalproex Sodium (Divalproex Sodium 500 Mg Tablet.) 1,000 mg PO DAILY@1999 [facility] Last Admin: 03/04/25 20:28 Dose: 1,000 mg Ferrous Sulfate (Ferrous Sulfate 324 Mg Tablet.) 324 mg PO DAILY [facility] Last Admin: 03/05/25 08:18 Dose: 324 mg Finasteride (Finasteride 5 Mg Tablet) 5 mg PO DAILY [facility] Last Admin: 03/05/25 08:18 Dose: 5 mg Lorazepam (Lorazepam 1 Mg Tablet) 1 mg PO TID [facility] Last Admin: 03/05/25 08:18 Dose: 1 mg Magnesium Hydroxide (Milk Of Magnesia 30 Ml Oral.Susp) 5 ml PO BEDTIME [facility] Last Admin: 03/04/25 20:29 Dose: 5 ml Magnesium Hydroxide (Milk Of Magnesia 30 Ml Oral.Susp) 30 ml PO DAILY PRN PRN Reason: Constipation Memantine (Memantine Hcl 5 Mg Tablet) 5 mg PO DAILY [facility] Last Admin: 03/05/25 08:18 Dose: 5 mg Mirtazapine (Mirtazapine 7.5 Mg Tablet) 22.5 mg PO BEDTIME@1999 [facility] Last Admin: 03/04/25 20:29 Dose: 22.5 mg Olanzapine (Olanzapine Odt 10 Mg Tab.Rapdis) 5 mg TRANSLINGU BID PRN PRN Reason: agitation Polyethylene Glycol (Polyethylene Glycol 3350 17 Gm Powd.Pack) 17 gm PO DAILY [facility] Last Admin: 03/05/25 08:18 Dose: 17 gm Pramipexole Dihydrochloride (Pramipexole Di-Hcl 0.25 Mg Tablet) 0.5 mg PO TID [facility] Last Admin: 03/05/25 08:18 Dose: 0.5 mg Sertraline HCl (Sertraline Hcl 100 Mg Tablet) 100 mg PO DAILY [facility] Last Admin: 03/05/25 08:18 Dose: 100 mg Tamsulosin HCl (Tamsulosin Hcl 0.4 Mg Capsule) 0.8 mg PO BEDTIME [facility] Last Admin: 03/04/25 20:29 Dose: 0.8 mg Thiamine HCl (Thiamine Hcl 100 Mg Tablet) 100 mg PO DAILY [facility] Last Admin: 03/05/25 08:18 Dose: 100 mg Trazodone HCl (Trazodone Hcl 50 Mg Tablet) 50 mg PO BEDTIME [facility] Last Admin: 03/04/25 20:28 Dose: 50 mg Venlafaxine HCl (Venlafaxine Hcl Er 150 Mg Cap.Er.24h) 150 mg PO BEDTIME [facility] Last Admin: 03/04/25 20:29 Dose: 150 mg Home Medications ?Medication ?Instructions ?Recorded ?Confirmed ?Last Taken ?Type magnesium hydroxide 400 mg/5 mL 400 mg PO BEDTIME 03/01/25 03/01/25 Unknown History oral suspension (Milk of Magnesia) venlafaxine 150 mg 150 mg PO BEDTIME 03/01/25 03/01/25 Unknown History capsule,extended release 24 hr venlafaxine 75 mg tablet,extended 75 mg PO DAILY 03/01/25 03/01/25 Unknown History release 24 hr Physical Exam Vital Signs and Narrative: Vital Signs: Last Vital Signs Temp 97.6 F 03/05/25 08:00 Pulse 96 03/05/25 08:00 Resp 16 03/04/25 19:45 BP 130/73 03/05/25 08:00 Pulse Ox 93 03/05/25 08:00 O2 Del Method Room Air 03/05/25 08:00 BMI result Body Mass Index 29.1 CONST: Alert and oriented, in NAD. Well nourished HEENT: Normocephalic, atraumatic, MMM, Eyes clear, Neck supple RESP: Lungs clear, RRR even and regular HEART:,RRR, S1, S2. No edema GI:Abdomen Soft NT, ND. + BS times four :Deferred SKIN: Warm dry and intact. NEURO:CN II-XII Intact bilaterally, Sensation intact. Speech clear PSYCH: Flat affect, answers 1-2 answers Results Labs 03/04/25 05:12 03/05/25 08:58 Labs: Laboratory Results - last 24 hr 03/05/25 08:58 Anion Gap 11 L Estim Creat Clear Calc 59.8 Estimated GFR 47 Random Glucose 107 Estimat Average Glucose 108 Hemoglobin A1c % 5.4 Calcium 9.3 D Total Bilirubin 0.4 AST 17 ALT 16 Alkaline Phosphatase 59 Total Protein 7.0 Albumin 4.4 Triglycerides 96 Cholesterol 181 LDL Cholesterol, Calc 116 H HDL Cholesterol 46 TSH 0.32 Assessment and Plan (1) Benign prostate hyperplasia: Qualifiers: Lower urinary tract symptom presence: unspecified whether lower urinary tract symptoms present Qualified Code(s): N40.0 - Benign prostatic hyperplasia without lower urinary tract symptoms Status: Acute Plan 59-year-old male with past medical history listed below, admitted from skilled nursing after being found covered in feces by staff, concerns for decompensated schizophrenia and depression with catatonia. He is admitted for psychiatric stabilization Schizoaffective DO/Depression with decompensation /Catatonia/cognitive impairment Treatment per psychiatric team Patient has required midline or PICC access for continued ketamine treatments in the past due to poor IV access. Urinary retention/BPH Continue Flomax/Proscar Monitor for retention. Dysphagia/at risk for aspiration. Tolerating diet, HOB up. OOB for meals. Iron deficiency anemia Continue iron tablets Constipation Continue daily MiraLax Thank you for allowing me to participate in the care of this patient. Will follow as needed. Please reconsult of any acute concerns or issues arise
[2025-03-05 20:32] VITALS: BP 103/57; PULSE 86; RESP 18; TEMP 36.8; O2SAT 94
[2025-03-05] MEDS: Venlafaxine HCl ER 150 MG CAP.ER.24H PO (21:06)
[2025-03-05] MEDS: Milk of Magnesia 30 ML ORAL.SUSP 5 ML PO (21:08)
[2025-03-06] VITALS (11 sets, daily range): BP systolic 116–137; BP diastolic 55–81; PULSE 62–97; RESP 16–20; TEMP 36.1–36.5; O2SAT 93–97; BMI 29.8
[2025-03-06] MEDS: Ferrous Sulfate 324 MG TABLET.DR PO (10:56)
--- NOTE | 2025-03-06 16:04 | HO.PSYCHPN ---
Subjective Subjective Date of Service: 03/06/25 Reason For Visit: Catatonia Interim History: Met with patient; discussed with team; reviewed chart; discussed case with Dr. Huerta Patient reports he is doing well feels pretty much back to his regular self. Patient asked public relations writer several questions about his treatment, medications and plans; also asked public relations writer about his own career and engaged in a pleasant, polite discourse. Patient agrees with treatment plan including increasing Namenda and remaining on scheduled Ativan. He understands he is being tapered off Zoloft. Patient got ketamine today he says he thinks it is helpful agrees to get it next week as well Mental Status Exam Mental Status Exam Narrative: Pt is alert and oriented; behavior is cooperative, friendly and calm; patient is not in distress; dressed in hospital attire with unkempt hair; mood is described as good and affect congruent, more expressive; eye contact appropriate; Speech is normal rate, volume and prosody and not pressured; some psychomotor retardation present; thought process is organized and goal directed; Thought content is on tx; otherwise pertinent to relevant topics and without any delusional content, paranoid ideations or grandiosity; denies any SI/HI. Denies AVH and there is no evidence of perceptual disturbance. Patients insight and judgment appear intact. Diagnostics Vital Signs (24Hr): Vital Signs - 24 hr 03/05/25 20:32 03/06/25 08:00 03/06/25 08:15 Temperature 98.2 F 97 F 97 F Pulse Rate 86 70 69 Respiratory Rate 18 16 16 Blood Pressure 103/57 L 137/81 126/80 Pulse Oximetry 94 96 94 Oxygen Delivery Method Room Air Room Air Room Air 03/06/25 08:30 03/06/25 08:45 03/06/25 09:00 Temperature Pulse Rate 70 66 65 Respiratory Rate 16 16 16 Blood Pressure 116/76 131/79 131/69 Pulse Oximetry 94 94 94 Oxygen Delivery Method Room Air Room Air Room Air 03/06/25 09:15 03/06/25 09:30 03/06/25 09:45 Temperature Pulse Rate 67 68 67 Respiratory Rate 16 16 16 Blood Pressure 129/74 121/73 121/74 Pulse Oximetry 96 96 94 Oxygen Delivery Method Room Air Room Air Room Air 03/06/25 10:00 03/06/25 10:35 Temperature 97 F 97.5 F Pulse Rate 62 97 Respiratory Rate 16 20 Blood Pressure 127/72 126/80 Pulse Oximetry 97 97 Oxygen Delivery Method Room Air Room Air BMI result Body Mass Index 29.1 Labs 03/04/25 05:12 03/05/25 08:58 Labs: Laboratory Results - last 48 hr 03/05/25 08:58 Sodium 142 Potassium 4.6 Chloride 105 Carbon Dioxide 31 H Anion Gap 11 L BUN 31 H Creatinine 1.52 H Estim Creat Clear Calc 59.8 Estimated GFR 47 Random Glucose 107 Estimat Average Glucose 108 Hemoglobin A1c % 5.4 Calcium 9.3 D Total Bilirubin 0.4 AST 17 ALT 16 Alkaline Phosphatase 59 Total Protein 7.0 Albumin 4.4 Triglycerides 96 Cholesterol 181 LDL Cholesterol, Calc 116 H HDL Cholesterol 46 TSH 0.32 Medications Medications Current Medications Acetaminophen (Acetaminophen 325 Mg Tablet) 650 mg PO Q6H PRN PRN Reason: Headache/Pain, Scale 1-10 Al Hydroxide/Mg Hydroxide (Magnesium Hydrox/Alum Hydrox 30 Ml Oral.Susp) 30 ml PO Q6H PRN PRN Reason: Heartburn/Nausea Aripiprazole (Aripiprazole 10 Mg Tablet) 10 mg PO DAILY@1730 [facility] Last Admin: 03/05/25 17:28 Dose: 10 mg Ascorbic Acid (Ascorbic Acid 500 Mg Tablet) 500 mg PO DAILY [facility] Last Admin: 03/06/25 10:55 Dose: 500 mg Clozapine (Clozapine 25 Mg Tablet) 25 mg PO DAILY@1999 [facility] Last Admin: 03/05/25 21:03 Dose: 25 mg Clozapine (Clozapine 100 Mg Tablet) 300 mg PO DAILY@1999 [facility] Last Admin: 03/05/25 21:02 Dose: 300 mg Divalproex Sodium (Divalproex Sodium 500 Mg Tablet.) 1,000 mg PO DAILY@1999 [facility] Last Admin: 03/05/25 21:03 Dose: 1,000 mg Ferrous Sulfate (Ferrous Sulfate 324 Mg Tablet.) 324 mg PO DAILY [facility] Last Admin: 03/06/25 10:56 Dose: 324 mg Finasteride (Finasteride 5 Mg Tablet) 5 mg PO DAILY [facility] Last Admin: 03/06/25 10:56 Dose: 5 mg Ketamine HCl 45 mg/ Sodium (Chloride) 45 mls @ 45 mls/hr IV ONCE ONE Stop: 03/11/25 07:59 Lorazepam (Lorazepam 1 Mg Tablet) 1 mg PO TID [facility] Last Admin: 03/06/25 14:40 Dose: 1 mg Magnesium Hydroxide (Milk Of Magnesia 30 Ml Oral.Susp) 5 ml PO BEDTIME [facility] Last Admin: 03/05/25 21:08 Dose: 5 ml Magnesium Hydroxide (Milk Of Magnesia 30 Ml Oral.Susp) 30 ml PO DAILY PRN PRN Reason: Constipation Memantine (Memantine Hcl 10 Mg Tablet) 10 mg PO DAILY [facility] Last Admin: 03/06/25 11:42 Dose: 10 mg Mirtazapine (Mirtazapine 7.5 Mg Tablet) 22.5 mg PO BEDTIME@1999 [facility] Last Admin: 03/05/25 21:04 Dose: 22.5 mg Olanzapine (Olanzapine Odt 10 Mg Tab.Rapdis) 5 mg TRANSLINGU BID PRN PRN Reason: agitation Polyethylene Glycol (Polyethylene Glycol 3350 17 Gm Powd.Pack) 17 gm PO DAILY [facility] Last Admin: 03/06/25 10:56 Dose: 17 gm Pramipexole Dihydrochloride (Pramipexole Di-Hcl 0.25 Mg Tablet) 0.5 mg PO TID [facility] Last Admin: 03/06/25 14:40 Dose: 0.5 mg Sertraline HCl (Sertraline Hcl 50 Mg Tablet) 50 mg PO DAILY [facility] Last Admin: 03/06/25 10:56 Dose: 50 mg Tamsulosin HCl (Tamsulosin Hcl 0.4 Mg Capsule) 0.8 mg PO BEDTIME [facility] Last Admin: 03/05/25 21:05 Dose: 0.8 mg Thiamine HCl (Thiamine Hcl 100 Mg Tablet) 100 mg PO DAILY [facility] Last Admin: 03/06/25 10:56 Dose: 100 mg Trazodone HCl (Trazodone Hcl 50 Mg Tablet) 50 mg PO BEDTIME [facility] Last Admin: 03/05/25 21:06 Dose: 50 mg Venlafaxine HCl (Venlafaxine Hcl Er 150 Mg Cap.Er.24h) 150 mg PO BEDTIME [facility] Last Admin: 03/05/25 21:06 Dose: 150 mg Allergies Allergies Allergy/AdvReac Type Severity Reaction Status Date / Time No Known Allergies (NKA) Allergy Unknown NONE Verified 02/28/25 02:52 Assessment & Plan Assessment & Plan (1) Schizoaffective disorder: Status: Acute Code(s): F25.9 - Schizoaffective disorder, unspecified (2) Catatonia: Status: Resolved Code(s): F06.1 - Catatonic disorder due to known physiological condition (3) Tardive dyskinesia: Status: Acute Code(s): G24.01 - Drug induced subacute dyskinesia Plan hpi: Mr. Tenorio is a 59 year-old male with a hx of schizoaffective disorder, multiple bouts of catatonia, who was recently discharged from on 12/30/2024 after prolonged admission for catatonia. Patient was transferred from his [facility] instead of catatonia, covered in feces and urine, initially not verbally responding but was able to follow commands. Patient was started on Ativan 1 mg t.i.d. which although not typically that helpful for this patient, seems to have helped treat his catatonic symptoms and patient began eating and talking. On M5 unit, patient says he is not sure what happened. He said he was taking his medications as far as I know and then only remembers being taken to the hospital but is unaware of any of the circumstances surrounding it. He says he is feeling much better now and thinks that he is getting close to being back to baseline. Agrees with extending ketamine treatments as that has helped most in the past. Formulation/clinical reasoning: Patient seems to doing better; typically Ativan does not work with patient but it seems to be helping now. Patient will get ketamine treatment starting tomorrow with which he agrees Hospital course: 03/06Patient reports he is doing well feels pretty much back to his regular self. Patient asked public relations writer several questions about his treatment, medications and plans; also asked public relations writer about his own career and engaged in a pleasant, polite discourse. Patient agrees with treatment plan including increasing Namenda and remaining on scheduled Ativan. He understands he is being tapered off Zoloft. Patient got ketamine today he says he thinks it is helpful agrees to get it next week as well -just getting out of catatonic state; highly vulnerable to regression Plan: CV Q 15 minute checks Ativan 1 mg t.i.d. patient seemed to improve once this was started in the ED; perhaps he should remain on this as a home medication Increase Namenda to 10 mg daily to help with preventing catatonia; used off-label Taper off Zoloft (part of outpatient plan) ketamine treatments twice a week Continue home medication Patient educated on: diagnosis, medication risk/benefits and therapeutic strategies Informed Consent: understands Reason for continued inpatient stay Substantial Risk for: rapid decompensation Time Spent With Patient Time: Total time managing care of this patient today ____ minutes.
[2025-03-06] MEDS: Venlafaxine HCl ER 150 MG CAP.ER.24H PO (20:54)
[2025-03-06] MEDS: Milk of Magnesia 30 ML ORAL.SUSP 5 ML PO (20:54)
[2025-03-07 08:00] VITALS: BP 118/55; PULSE 94; TEMP 36.9; O2SAT 93
[2025-03-07] MEDS: Ferrous Sulfate 324 MG TABLET.DR PO (09:33)
[2025-03-07 14:27] LABS: Neut%MD 71.0 %; WBCANC 5.9 X10*3/uL
--- NOTE | 2025-03-07 16:05 | P.PNPSI_ITS ---
Subjective Subjective Date of Service: 03/07/25 Reason For Visit: Catatonia Interim History: Met with patient; discussed with team Patient reports that he is doing well; sitting in the day room. Discussed treatment plan and he agrees with continued plan to get ketamine. Patient remains eating, drinking, talking and going to groups Mental Status Exam Mental Status Exam Narrative: Pt is alert and oriented; behavior is cooperative, friendly and calm; patient is not in distress; dressed in casual attire with unkempt hair but adequate hygiene; mood is described as good and affect congruent, more expressive; eye contact appropriate; Speech is normal rate, volume and prosody and not pressured; some psychomotor retardation present; thought process is organized and goal directed; Thought content is on tx; otherwise pertinent to relevant topics and without any delusional content, paranoid ideations or grandiosity; denies any SI/HI. Denies AVH and there is no evidence of perceptual disturbance. Patients insight and judgment appear intact. Diagnostics Vital Signs (24Hr): Vital Signs - 24 hr 03/06/25 19:46 03/07/25 08:00 Temperature 97.7 F 98.4 F Pulse Rate 78 94 Respiratory Rate 18 Blood Pressure 117/55 L 118/55 L Pulse Oximetry 93 93 Oxygen Delivery Method Room Air Room Air BMI result Body Mass Index 29.8 Labs 03/04/25 05:12 03/05/25 08:58 Labs: Laboratory Results - last 48 hr 03/07/25 14:03 Absolute Neuts (auto) 4.2 Medications Medications Current Medications Acetaminophen (Acetaminophen 325 Mg Tablet) 650 mg PO Q6H PRN PRN Reason: Headache/Pain, Scale 1-10 Al Hydroxide/Mg Hydroxide (Magnesium Hydrox/Alum Hydrox 30 Ml Oral.Susp) 30 ml PO Q6H PRN PRN Reason: Heartburn/Nausea Aripiprazole (Aripiprazole 10 Mg Tablet) 10 mg PO DAILY@1730 [facility] Last Admin: 03/06/25 18:03 Dose: 10 mg Ascorbic Acid (Ascorbic Acid 500 Mg Tablet) 500 mg PO DAILY [facility] Last Admin: 03/07/25 09:34 Dose: 500 mg Clozapine (Clozapine 25 Mg Tablet) 25 mg PO DAILY@1999 [facility] Last Admin: 03/06/25 20:53 Dose: 25 mg Clozapine (Clozapine 100 Mg Tablet) 300 mg PO DAILY@1999 [facility] Last Admin: 03/06/25 20:54 Dose: 300 mg Divalproex Sodium (Divalproex Sodium 500 Mg Tablet.) 1,000 mg PO DAILY@1999 [facility] Last Admin: 03/06/25 20:53 Dose: 1,000 mg Ferrous Sulfate (Ferrous Sulfate 324 Mg Tablet.) 324 mg PO DAILY [facility] Last Admin: 03/07/25 09:33 Dose: 324 mg Finasteride (Finasteride 5 Mg Tablet) 5 mg PO DAILY [facility] Last Admin: 03/07/25 09:33 Dose: 5 mg Ketamine HCl 45 mg/ Sodium (Chloride) 45 mls @ 45 mls/hr IV ONCE ONE Stop: 03/11/25 07:59 Lorazepam (Lorazepam 1 Mg Tablet) 1 mg PO TID [facility] Last Admin: 03/07/25 09:33 Dose: 1 mg Magnesium Hydroxide (Milk Of Magnesia 30 Ml Oral.Susp) 5 ml PO BEDTIME [facility] Last Admin: 03/06/25 20:54 Dose: 5 ml Magnesium Hydroxide (Milk Of Magnesia 30 Ml Oral.Susp) 30 ml PO DAILY PRN PRN Reason: Constipation Memantine (Memantine Hcl 10 Mg Tablet) 10 mg PO DAILY [facility] Last Admin: 03/07/25 09:34 Dose: 10 mg Mirtazapine (Mirtazapine 7.5 Mg Tablet) 22.5 mg PO BEDTIME@1999 [facility] Last Admin: 03/06/25 20:53 Dose: 22.5 mg Olanzapine (Olanzapine Odt 10 Mg Tab.Rapdis) 5 mg TRANSLINGU BID PRN PRN Reason: agitation Polyethylene Glycol (Polyethylene Glycol 3350 17 Gm Powd.Pack) 17 gm PO DAILY [facility] Last Admin: 03/07/25 09:33 Dose: 17 gm Pramipexole Dihydrochloride (Pramipexole Di-Hcl 0.25 Mg Tablet) 0.5 mg PO TID [facility] Last Admin: 03/07/25 09:34 Dose: 0.5 mg Sertraline HCl (Sertraline Hcl 50 Mg Tablet) 50 mg PO DAILY [facility] Last Admin: 03/07/25 09:34 Dose: 50 mg Tamsulosin HCl (Tamsulosin Hcl 0.4 Mg Capsule) 0.8 mg PO BEDTIME [facility] Last Admin: 03/06/25 20:53 Dose: 0.8 mg Thiamine HCl (Thiamine Hcl 100 Mg Tablet) 100 mg PO DAILY [facility] Last Admin: 03/07/25 09:33 Dose: 100 mg Trazodone HCl (Trazodone Hcl 50 Mg Tablet) 50 mg PO BEDTIME [facility] Last Admin: 03/06/25 20:53 Dose: 50 mg Venlafaxine HCl (Venlafaxine Hcl Er 150 Mg Cap.Er.24h) 150 mg PO BEDTIME [facility] Last Admin: 03/06/25 20:54 Dose: 150 mg Allergies Allergies Allergy/AdvReac Type Severity Reaction Status Date / Time No Known Allergies (NKA) Allergy Unknown NONE Verified 02/28/25 02:52 Assessment & Plan Assessment & Plan (1) Schizoaffective disorder: Status: Acute Code(s): F25.9 - Schizoaffective disorder, unspecified (2) Catatonia: Status: Resolved Code(s): F06.1 - Catatonic disorder due to known physiological condition (3) Tardive dyskinesia: Status: Acute Code(s): G24.01 - Drug induced subacute dyskinesia Plan hpi: Mr. Tenorio is a 59 year-old male with a hx of schizoaffective disorder, multiple bouts of catatonia, who was recently discharged from on 12/30/2024 after prolonged admission for catatonia. Patient was [facility] his [facility] instead of [facility]onia, covered in feces and urine, initially not verbally responding but was able to follow commands. Patient was started on Ativan 1 mg t.i.d. which although not typically that helpful for this patient, seems to have helped treat his catatonic symptoms and patient began eating and talking. On M5 unit, patient says he is not sure what happened. He said he was taking his medications as far as I know and then only remembers being taken to the hospital but is unaware of any of the circumstances surrounding it. He says he is feeling much better now and thinks that he is getting close to being back to baseline. Agrees with extending ketamine treatments as that has helped most in the past. Formulation/clinical reasoning: Patient seems to doing better; typically Ativan does not work with patient but it seems to be helping now. Patient will get ketamine treatment starting tomorrow with which he agrees Hospital course: 03/06Patient reports he is doing well feels pretty much back to his regular self. Patient asked marketing writer several questions about his treatment, medications and plans; also asked marketing writer about his own career and engaged in a pleasant, polite discourse. Patient agrees with treatment plan including increasing Namenda and remaining on scheduled Ativan. He understands he is being tapered off Zoloft. Patient got ketamine today he says he thinks it is helpful agrees to get it next week as well -just getting out of catatonic state; highly vulnerable to regression 03/07 patient remains doing well, eating, talking, going to groups; attending to ADLs and patient took a shower today. Sitting in the day room, mostly keeping to himself but friendly on approach. Discussed treatment plans and he agrees with ketamine -discussed case with Dr. Huerta and trying to see if it is possible for patient to get ketamine as an outpatient Plan: CV Q 15 minute checks Ativan 1 mg t.i.d. patient seemed to improve once this was started in the ED; perhaps he should remain on this as a home medication Increased Namenda to 10 mg daily to help with preventing catatonia; used off- label Taper off Zoloft (part of outpatient plan) ketamine treatments twice a week Continue home medication Patient educated on: diagnosis and medication risk/benefits Informed Consent: understands Reason for continued inpatient stay Substantial Risk for: rapid decompensation Time Spent With Patient Time: Total time managing care of this patient today ____ minutes.
[2025-03-07 20:00] VITALS: BP 124/61; PULSE 92; RESP 18; TEMP 36.9; O2SAT 95
[2025-03-07] MEDS: Milk of Magnesia 30 ML ORAL.SUSP 5 ML PO (21:09)
[2025-03-07] MEDS: Venlafaxine HCl ER 150 MG CAP.ER.24H PO (21:11)
[2025-03-08 08:00] VITALS: BP 129/63; PULSE 76; RESP 17; TEMP 36; O2SAT 93
[2025-03-08] MEDS: Ferrous Sulfate 324 MG TABLET.DR PO (08:21)
[2025-03-08 08:32] LABS: Ammonia 33 umol/L (13-55)
[2025-03-08 08:38] LABS: Alanine Aminotransferase 13 U/L (0-40); Albumin Level 4.2 g/dL (3.5-5.0); Alkaline Phosphatase 62 U/L (39-117); Aspartate Amino Transferase 13 U/L (5-37); Total Protein 6.7 g/dL (6.5-8.0)
--- NOTE | 2025-03-08 09:46 | HO.PSYCHPN ---
Subjective Subjective Date of Service: 03/08/25 Reason For Visit: Catatonia Interim History: met with patient; discussed with team; reviewed chart urinated on the floor, but otherwise remains improved, in the milue more, eating, drinking, talking and asking questions. Pt asked about tx plan and when he might discharge and agreed with plan Mental Status Exam Mental Status Exam Narrative: Pt is alert and oriented; behavior is cooperative, friendly and calm; patient is not in distress; dressed in casual attire with unkempt hair but adequate hygiene; mood is described as good and affect congruent, more expressive; eye contact appropriate; Speech is normal rate, volume and prosody and not pressured; some psychomotor retardation present; thought process is organized and goal directed; Thought content is on tx; otherwise pertinent to relevant topics and without any delusional content, paranoid ideations or grandiosity; denies any SI/HI. Denies AVH and there is no evidence of perceptual disturbance. Patients insight and judgment appear intact. Diagnostics Vital Signs (24Hr): Vital Signs - 24 hr 03/07/25 20:00 03/08/25 08:00 Temperature 98.4 F 96.8 F Pulse Rate 92 76 Respiratory Rate 18 Blood Pressure 124/61 129/63 Pulse Oximetry 95 93 Oxygen Delivery Method Room Air Room Air BMI result Body Mass Index 29.8 Labs 03/04/25 05:12 03/05/25 08:58 Labs: Laboratory Results - last 48 hr 03/07/25 03/08/25 03/08/25 14:03 08:00 08:01 Absolute Neuts (auto) 4.2 Total Bilirubin 0.3 Direct Bilirubin 0.1 AST 13 ALT 13 Alkaline Phosphatase 62 Ammonia 33 Total Protein 6.7 Albumin 4.2 Valproic Acid 44.9 L Medications Medications Current Medications Acetaminophen (Acetaminophen 325 Mg Tablet) 650 mg PO Q6H PRN PRN Reason: Headache/Pain, Scale 1-10 Al Hydroxide/Mg Hydroxide (Magnesium Hydrox/Alum Hydrox 30 Ml Oral.Susp) 30 ml PO Q6H PRN PRN Reason: Heartburn/Nausea Aripiprazole (Aripiprazole 10 Mg Tablet) 10 mg PO DAILY@1730 [facility] Last Admin: 03/07/25 16:48 Dose: 10 mg Ascorbic Acid (Ascorbic Acid 500 Mg Tablet) 500 mg PO DAILY [facility] Last Admin: 03/08/25 08:22 Dose: 500 mg Clozapine (Clozapine 25 Mg Tablet) 25 mg PO DAILY@1999 [facility] Last Admin: 03/07/25 21:11 Dose: 25 mg Clozapine (Clozapine 100 Mg Tablet) 300 mg PO DAILY@1999 [facility] Last Admin: 03/07/25 21:10 Dose: 300 mg Divalproex Sodium (Divalproex Sodium 500 Mg Tablet.) 1,000 mg PO DAILY@1999 [facility] Last Admin: 03/07/25 21:11 Dose: 1,000 mg Ferrous Sulfate (Ferrous Sulfate 324 Mg Tablet.) 324 mg PO DAILY [facility] Last Admin: 03/08/25 08:21 Dose: 324 mg Finasteride (Finasteride 5 Mg Tablet) 5 mg PO DAILY [facility] Last Admin: 03/08/25 08:21 Dose: 5 mg Ketamine HCl 45 mg/ Sodium (Chloride) 45 mls @ 45 mls/hr IV ONCE ONE Stop: 03/11/25 07:59 Lorazepam (Lorazepam 1 Mg Tablet) 1 mg PO TID [facility] Last Admin: 03/08/25 08:22 Dose: 1 mg Magnesium Hydroxide (Milk Of Magnesia 30 Ml Oral.Susp) 5 ml PO BEDTIME [facility] Last Admin: 03/07/25 21:09 Dose: 5 ml Magnesium Hydroxide (Milk Of Magnesia 30 Ml Oral.Susp) 30 ml PO DAILY PRN PRN Reason: Constipation Memantine (Memantine Hcl 10 Mg Tablet) 10 mg PO DAILY [facility] Last Admin: 03/08/25 08:22 Dose: 10 mg Mirtazapine (Mirtazapine 7.5 Mg Tablet) 22.5 mg PO BEDTIME@1999 [facility] Last Admin: 03/07/25 21:11 Dose: 22.5 mg Olanzapine (Olanzapine Odt 10 Mg Tab.Rapdis) 5 mg TRANSLINGU BID PRN PRN Reason: agitation Polyethylene Glycol (Polyethylene Glycol 3350 17 Gm Powd.Pack) 17 gm PO DAILY [facility] Last Admin: 03/08/25 08:22 Dose: 17 gm Pramipexole Dihydrochloride (Pramipexole Di-Hcl 0.25 Mg Tablet) 0.5 mg PO TID [facility] Last Admin: 03/08/25 08:21 Dose: 0.5 mg Sertraline HCl (Sertraline Hcl 50 Mg Tablet) 50 mg PO DAILY [facility] Last Admin: 03/08/25 08:22 Dose: 50 mg Tamsulosin HCl (Tamsulosin Hcl 0.4 Mg Capsule) 0.8 mg PO BEDTIME [facility] Last Admin: 03/07/25 21:12 Dose: 0.8 mg Thiamine HCl (Thiamine Hcl 100 Mg Tablet) 100 mg PO DAILY [facility] Last Admin: 03/08/25 08:21 Dose: 100 mg Trazodone HCl (Trazodone Hcl 50 Mg Tablet) 50 mg PO BEDTIME [facility] Last Admin: 03/07/25 21:54 Dose: 50 mg Venlafaxine HCl (Venlafaxine Hcl Er 150 Mg Cap.Er.24h) 150 mg PO BEDTIME [facility] Last Admin: 03/07/25 21:11 Dose: 150 mg Allergies Allergies Allergy/AdvReac Type Severity Reaction Status Date / Time No Known Allergies (NKA) Allergy Unknown NONE Verified 02/28/25 02:52 Assessment & Plan Assessment & Plan (1) Schizoaffective disorder: Status: Acute Code(s): F25.9 - Schizoaffective disorder, unspecified (2) Catatonia: Status: Resolved Code(s): F06.1 - Catatonic disorder due to known physiological condition (3) Tardive dyskinesia: Status: Acute Code(s): G24.01 - Drug induced subacute dyskinesia Plan hpi: Mr. Tenorio is a 59 year-old male with a hx of schizoaffective disorder, multiple bouts of catatonia, who was recently discharged from on 12/30/2024 after prolonged admission for catatonia. Patient was transferred from his [facility]pc instead of catatonia, covered in feces and urine, initially not verbally responding but was able to follow commands. Patient was started on Ativan 1 mg t.i.d. which although not typically that helpful for this patient, seems to have helped treat his catatonic symptoms and patient began eating and talking. On M5 unit, patient says he is not sure what happened. He said he was taking his medications as far as I know and then only remembers being taken to the hospital but is unaware of any of the circumstances surrounding it. He says he is feeling much better now and thinks that he is getting close to being back to baseline. Agrees with extending ketamine treatments as that has helped most in the past. Formulation/clinical reasoning: Patient seems to doing better; typically Ativan does not work with patient but it seems to be helping now. Patient will get ketamine treatment starting tomorrow with which he agrees Hospital course: 03/06Patient reports he is doing well feels pretty much back to his regular self. Patient asked insurance underwriter sales several questions about his treatment, medications and plans; also asked insurance underwriter sales about his own career and engaged in a pleasant, polite discourse. Patient agrees with treatment plan including increasing Namenda and remaining on scheduled Ativan. He understands he is being tapered off Zoloft. Patient got ketamine today he says he thinks it is helpful agrees to get it next week as well -just getting out of catatonic state; highly vulnerable to regression 03/07 patient remains doing well, eating, talking, going to groups; attending to ADLs and patient took a shower today. Sitting in the day room, mostly keeping to himself but friendly on approach. Discussed treatment plans and he agrees with ketamine -discussed case with Dr. Huerta and trying to see if it is possible for patient to get ketamine as an outpatient 03/08 urinated on the floor, but otherwise remains improved, in the milue more, eating, drinking, talking and asking questions. Pt asked about tx plan and when he might discharge and agreed with plan Plan: CV Q 15 minute checks Ativan 1 mg t.i.d. patient seemed to improve once this was started in the ED; perhaps he should remain on this as a home medication Increased Namenda to 10 mg daily to help with preventing catatonia; used off-label Taper off Zoloft (part of outpatient plan) ketamine treatments twice a week Continue home medication Patient educated on: diagnosis and medication risk/benefits Informed Consent: understands Reason for continued inpatient stay Substantial Risk for: rapid decompensation Time Spent With Patient Time: Total time managing care of this patient today ____ minutes.
[2025-03-08 20:00] VITALS: BP 129/61; PULSE 84; RESP 15; TEMP 36.9; O2SAT 93
[2025-03-08] MEDS: Venlafaxine HCl ER 150 MG CAP.ER.24H PO (20:22)
[2025-03-08] MEDS: Milk of Magnesia 30 ML ORAL.SUSP 5 ML PO (20:23)
[2025-03-09 09:00] VITALS: BP 100/56; PULSE 84; RESP 16; TEMP 36.9; O2SAT 92
[2025-03-09] MEDS: Ferrous Sulfate 324 MG TABLET.DR PO (09:06)
[2025-03-09 10:46] VITALS: O2SAT 95
--- NOTE | 2025-03-09 17:45 | P.PNPSI_ITS ---
Subjective Subjective Date of Service: 03/09/25 Reason For Visit: Catatonia Interim History: Met with patient; discussed with team This morning patient is bedding smelled of urine however he got up, showered, washed all his clothes and had his bedding changed. Patient reports he is good feeling well. Walked with business writer down the diaz and talked and patient says he thinks he will be getting ready to go home soon but wants to stay for continued treatment of ketamine. Mental Status Exam Mental Status Exam Narrative: Pt is alert and oriented; behavior is cooperative, friendly and calm; patient is not in distress; dressed in casual attire with unkempt hair but adequate hygiene; mood is described as good and affect congruent, more expressive; eye contact appropriate; Speech is normal rate, volume and prosody and not pressured; some psychomotor retardation present; thought process is organized and goal directed; Thought content is on tx; otherwise pertinent to relevant topics and without any delusional content, paranoid ideations or grandiosity; denies any SI/HI. Denies AVH and there is no evidence of perceptual disturbance. Patients insight and judgment appear intact. Diagnostics Vital Signs (24Hr): Vital Signs - 24 hr 03/08/25 20:00 03/09/25 09:00 03/09/25 10:46 Temperature 98.4 F 98.4 F Pulse Rate 84 84 Respiratory Rate 15 16 Blood Pressure 129/61 100/56 L Pulse Oximetry 93 92 95 Oxygen Delivery Method Room Air Room Air BMI result Body Mass Index 29.8 Labs 03/04/25 05:12 03/05/25 08:58 Labs: Laboratory Results - last 48 hr 03/08/25 03/08/25 08:00 08:01 Total Bilirubin 0.3 Direct Bilirubin 0.1 AST 13 ALT 13 Alkaline Phosphatase 62 Ammonia 33 Total Protein 6.7 Albumin 4.2 Valproic Acid 44.9 L Medications Medications Current Medications Acetaminophen (Acetaminophen 325 Mg Tablet) 650 mg PO Q6H PRN PRN Reason: Headache/Pain, Scale 1-10 Al Hydroxide/Mg Hydroxide (Magnesium Hydrox/Alum Hydrox 30 Ml Oral.Susp) 30 ml PO Q6H PRN PRN Reason: Heartburn/Nausea Aripiprazole (Aripiprazole 10 Mg Tablet) 10 mg PO DAILY@1730 [facility] Last Admin: 03/09/25 17:39 Dose: 10 mg Ascorbic Acid (Ascorbic Acid 500 Mg Tablet) 500 mg PO DAILY [facility] Last Admin: 03/09/25 09:06 Dose: 500 mg Clozapine (Clozapine 25 Mg Tablet) 25 mg PO DAILY@1999 [facility] Last Admin: 03/08/25 20:23 Dose: 25 mg Clozapine (Clozapine 100 Mg Tablet) 300 mg PO DAILY@1999 [facility] Last Admin: 03/08/25 20:22 Dose: 300 mg Divalproex Sodium (Divalproex Sodium 500 Mg Tablet.) 1,000 mg PO DAILY@1999 [facility] Last Admin: 03/08/25 20:22 Dose: 1,000 mg Ferrous Sulfate (Ferrous Sulfate 324 Mg Tablet.) 324 mg PO DAILY [facility] Last Admin: 03/09/25 09:06 Dose: 324 mg Finasteride (Finasteride 5 Mg Tablet) 5 mg PO DAILY [facility] Last Admin: 03/09/25 09:06 Dose: 5 mg Ketamine HCl 45 mg/ Sodium (Chloride) 45 mls @ 45 mls/hr IV ONCE ONE Stop: 03/11/25 07:59 Lorazepam (Lorazepam 1 Mg Tablet) 1 mg PO TID [facility] Last Admin: 03/09/25 15:07 Dose: 1 mg Magnesium Hydroxide (Milk Of Magnesia 30 Ml Oral.Susp) 5 ml PO BEDTIME [facility] Last Admin: 03/08/25 20:23 Dose: 5 ml Magnesium Hydroxide (Milk Of Magnesia 30 Ml Oral.Susp) 30 ml PO DAILY PRN PRN Reason: Constipation Memantine (Memantine Hcl 10 Mg Tablet) 10 mg PO DAILY [facility] Last Admin: 03/09/25 09:06 Dose: 10 mg Mirtazapine (Mirtazapine 7.5 Mg Tablet) 22.5 mg PO BEDTIME@1999 [facility] Last Admin: 03/08/25 20:22 Dose: 22.5 mg Olanzapine (Olanzapine Odt 10 Mg Tab.Rapdis) 5 mg TRANSLINGU BID PRN PRN Reason: agitation Polyethylene Glycol (Polyethylene Glycol 3350 17 Gm Powd.Pack) 17 gm PO DAILY [facility] Last Admin: 03/09/25 09:06 Dose: 17 gm Pramipexole Dihydrochloride (Pramipexole Di-Hcl 0.25 Mg Tablet) 0.5 mg PO TID [facility] Last Admin: 03/09/25 15:07 Dose: 0.5 mg Sertraline HCl (Sertraline Hcl 50 Mg Tablet) 50 mg PO DAILY [facility] Last Admin: 03/09/25 09:06 Dose: 50 mg Tamsulosin HCl (Tamsulosin Hcl 0.4 Mg Capsule) 0.8 mg PO BEDTIME [facility] Last Admin: 03/08/25 20:22 Dose: 0.8 mg Thiamine HCl (Thiamine Hcl 100 Mg Tablet) 100 mg PO DAILY [facility] Last Admin: 03/09/25 09:06 Dose: 100 mg Trazodone HCl (Trazodone Hcl 50 Mg Tablet) 50 mg PO BEDTIME [facility] Last Admin: 03/08/25 20:22 Dose: 50 mg Venlafaxine HCl (Venlafaxine Hcl Er 150 Mg Cap.Er.24h) 150 mg PO BEDTIME [facility] Last Admin: 03/08/25 20:22 Dose: 150 mg Allergies Allergies Allergy/AdvReac Type Severity Reaction Status Date / Time No Known Allergies (NKA) Allergy Unknown NONE Verified 02/28/25 02:52 Assessment & Plan Assessment & Plan (1) Schizoaffective disorder: Status: Acute Code(s): F25.9 - Schizoaffective disorder, unspecified (2) Catatonia: Status: Resolved Code(s): F06.1 - Catatonic disorder due to known physiological condition (3) Tardive dyskinesia: Status: Acute Code(s): G24.01 - Drug induced subacute dyskinesia Plan hpi: Mr. Tenorio is a 59 year-old male with a hx of schizoaffective disorder, multiple bouts of catatonia, who was recently discharged from on 12/30/2024 after prolonged admission for catatonia. Patient was transferred from his snf instead of catatonia, covered in feces and urine, initially not verbally responding but was able to follow commands. Patient was started on Ativan 1 mg t.i.d. which although not typically that helpful for this patient, seems to have helped treat his catatonic symptoms and patient began eating and talking. On M5 unit, patient says he is not sure what happened. He said he was taking his medications as far as I know and then only remembers being taken to the hospital but is unaware of any of the circumstances surrounding it. He says he is feeling much better now and thinks that he is getting close to being back to baseline. Agrees with extending ketamine treatments as that has helped most in the past. Formulation/clinical reasoning: Patient seems to doing better; typically Ativan does not work with patient but it seems to be helping now. Patient will get ketamine treatment starting tomorrow with which he agrees Hospital course: 03/06Patient reports he is doing well feels pretty much back to his regular self. Patient asked business writer several questions about his treatment, medications and plans; also asked business writer about his own career and engaged in a pleasant, polite discourse. Patient agrees with treatment plan including increasing Namenda and remaining on scheduled Ativan. He understands he is being tapered off Zoloft. Patient got ketamine today he says he thinks it is helpful agrees to get it next week as well -just getting out of catatonic state; highly vulnerable to regression 03/07 patient remains doing well, eating, talking, going to groups; attending to ADLs and patient took a shower today. Sitting in the day room, mostly keeping to himself but friendly on approach. Discussed treatment plans and he agrees with ketamine -discussed case with Dr. Huerta and trying to see if it is possible for patient to get ketamine as an outpatient 03/08 urinated on the floor, but otherwise remains improved, in the milue more, eating, drinking, talking and asking questions. Pt asked about tx plan and when he might discharge and agreed with plan 03/09 This morning patient is bedding smelled of urine however he got up, showered, washed all his clothes and had his bedding changed. Patient reports he is good feeling well. Walked with business writer down the diaz and talked and patient says he thinks he will be getting ready to go home soon but wants to stay for continued treatment of ketamine. Asked staff if he could shave Plan: CV Q 15 minute checks Ativan 1 mg t.i.d. patient seemed to improve once this was started in the ED; perhaps he should remain on this as a home medication Increased Namenda to 10 mg daily to help with preventing catatonia; used off- label Taper off Zoloft (part of outpatient plan) ketamine treatments twice a week Continue home medication Patient educated on: diagnosis and medication risk/benefits Informed Consent: understands Reason for continued inpatient stay Substantial Risk for: stable for discharge and rapid decompensation Time Spent With Patient Time: Total time managing care of this patient today ____ minutes.
[2025-03-09 19:59] VITALS: BP 111/55; PULSE 87; RESP 15; TEMP 36.1; O2SAT 95
[2025-03-09] MEDS: Venlafaxine HCl ER 150 MG CAP.ER.24H PO (20:16)
[2025-03-09] MEDS: Milk of Magnesia 30 ML ORAL.SUSP 5 ML PO (20:17)
[2025-03-10 08:00] VITALS: BP 129/65; PULSE 79; RESP 18; TEMP 36.5; O2SAT 95
[2025-03-10] MEDS: Ferrous Sulfate 324 MG TABLET.DR PO (08:31)
--- NOTE | 2025-03-10 09:39 | P.PNPSI_ITS ---
Subjective Subjective Date of Service: 03/10/25 Reason For Visit: Catatonia Interim History: Met with patient; discussed with team Remains doing well, interactive, attending to ADLs, out in the milieu. Signed a 3 day notice but willing to consider retracting to get more ketamine Mental Status Exam Mental Status Exam Narrative: Pt is alert and oriented; behavior is cooperative, friendly and calm; patient is not in distress; dressed in casual attire with unkempt hair but adequate hygiene; mood is described as good and affect congruent, more expressive; eye contact appropriate; Speech is normal rate, volume and prosody and not pressured; some psychomotor retardation present; thought process is organized and goal directed; Thought content is on tx; otherwise pertinent to relevant topics and without any delusional content, paranoid ideations or grandiosity; denies any SI/HI. Denies AVH and there is no evidence of perceptual disturbance. Patients insight and judgment appear intact. Diagnostics Vital Signs (24Hr): Vital Signs - 24 hr 03/09/25 10:46 03/09/25 19:59 03/10/25 08:00 Temperature 97.0 F 97.7 F Pulse Rate 87 79 Respiratory Rate 15 18 Blood Pressure 111/55 L 129/65 Pulse Oximetry 95 95 95 Oxygen Delivery Method Room Air Room Air BMI result Body Mass Index 29.8 Labs 03/04/25 05:12 03/05/25 08:58 Medications Medications Current Medications Acetaminophen (Acetaminophen 325 Mg Tablet) 650 mg PO Q6H PRN PRN Reason: Headache/Pain, Scale 1-10 Al Hydroxide/Mg Hydroxide (Magnesium Hydrox/Alum Hydrox 30 Ml Oral.Susp) 30 ml PO Q6H PRN PRN Reason: Heartburn/Nausea Aripiprazole (Aripiprazole 10 Mg Tablet) 10 mg PO DAILY@1730 [facility] Last Admin: 03/09/25 17:39 Dose: 10 mg Ascorbic Acid (Ascorbic Acid 500 Mg Tablet) 500 mg PO DAILY [facility] Last Admin: 03/10/25 08:31 Dose: 500 mg Clozapine (Clozapine 25 Mg Tablet) 25 mg PO DAILY@1999 [facility] Last Admin: 03/09/25 20:16 Dose: 25 mg Clozapine (Clozapine 100 Mg Tablet) 300 mg PO DAILY@1999 [facility] Last Admin: 03/09/25 20:16 Dose: 300 mg Divalproex Sodium (Divalproex Sodium 500 Mg Tablet.) 1,000 mg PO DAILY@1999 [facility] Last Admin: 03/09/25 20:16 Dose: 1,000 mg Ferrous Sulfate (Ferrous Sulfate 324 Mg Tablet.) 324 mg PO DAILY [facility] Last Admin: 03/10/25 08:31 Dose: 324 mg Finasteride (Finasteride 5 Mg Tablet) 5 mg PO DAILY [facility] Last Admin: 03/10/25 08:31 Dose: 5 mg Ketamine HCl 45 mg/ Sodium (Chloride) 45 mls @ 45 mls/hr IV ONCE ONE Stop: 03/11/25 07:59 Lorazepam (Lorazepam 1 Mg Tablet) 1 mg PO TID [facility] Last Admin: 03/10/25 08:31 Dose: 1 mg Magnesium Hydroxide (Milk Of Magnesia 30 Ml Oral.Susp) 5 ml PO BEDTIME [facility] Last Admin: 03/09/25 20:17 Dose: 5 ml Magnesium Hydroxide (Milk Of Magnesia 30 Ml Oral.Susp) 30 ml PO DAILY PRN PRN Reason: Constipation Memantine (Memantine Hcl 10 Mg Tablet) 10 mg PO DAILY [facility] Last Admin: 03/10/25 08:31 Dose: 10 mg Mirtazapine (Mirtazapine 7.5 Mg Tablet) 22.5 mg PO BEDTIME@1999 [facility] Last Admin: 03/09/25 20:16 Dose: 22.5 mg Olanzapine (Olanzapine Odt 10 Mg Tab.Rapdis) 5 mg TRANSLINGU BID PRN PRN Reason: agitation Polyethylene Glycol (Polyethylene Glycol 3350 17 Gm Powd.Pack) 17 gm PO DAILY [facility] Last Admin: 03/10/25 08:34 Dose: 17 gm Pramipexole Dihydrochloride (Pramipexole Di-Hcl 0.25 Mg Tablet) 0.5 mg PO TID [facility] Last Admin: 03/10/25 08:31 Dose: 0.5 mg Sertraline HCl (Sertraline Hcl 50 Mg Tablet) 50 mg PO DAILY [facility] Last Admin: 03/10/25 08:31 Dose: 50 mg Tamsulosin HCl (Tamsulosin Hcl 0.4 Mg Capsule) 0.8 mg PO BEDTIME [facility] Last Admin: 03/09/25 20:16 Dose: 0.8 mg Thiamine HCl (Thiamine Hcl 100 Mg Tablet) 100 mg PO DAILY [facility] Last Admin: 03/10/25 08:31 Dose: 100 mg Trazodone HCl (Trazodone Hcl 50 Mg Tablet) 50 mg PO BEDTIME [facility] Last Admin: 03/09/25 20:17 Dose: 50 mg Venlafaxine HCl (Venlafaxine Hcl Er 150 Mg Cap.Er.24h) 150 mg PO BEDTIME [facility] Last Admin: 03/09/25 20:16 Dose: 150 mg Allergies Allergies Allergy/AdvReac Type Severity Reaction Status Date / Time No Known Allergies (NKA) Allergy Unknown NONE Verified 02/28/25 02:52 Assessment & Plan Assessment & Plan (1) Schizoaffective disorder: Status: Acute Code(s): F25.9 - Schizoaffective disorder, unspecified (2) Catatonia: Status: Resolved Code(s): F06.1 - Catatonic disorder due to known physiological condition (3) Tardive dyskinesia: Status: Acute Code(s): G24.01 - Drug induced subacute dyskinesia Plan hpi: Mr. Tenorio is a 59 year-old male with a hx of schizoaffective disorder, multiple bouts of catatonia, who was recently discharged from on 12/30/2024 after prolonged admission for catatonia. Patient was transferred from his assisted instead of catatonia, covered in feces and urine, initially not verbally responding but was able to follow commands. Patient was started on Ativan 1 mg t.i.d. which although not typically that helpful for this patient, seems to have helped treat his catatonic symptoms and patient began eating and talking. On M5 unit, patient says he is not sure what happened. He said he was taking his medications as far as I know and then only remembers being taken to the hospital but is unaware of any of the circumstances surrounding it. He says he is feeling much better now and thinks that he is getting close to being back to baseline. Agrees with extending ketamine treatments as that has helped most in the past. Formulation/clinical reasoning: Patient seems to doing better; typically Ativan does not work with patient but it seems to be helping now. Patient will get ketamine treatment starting tomorrow with which he agrees Hospital course: 03/06Patient reports he is doing well feels pretty much back to his regular self. Patient asked creative services writer several questions about his treatment, medications and plans; also asked creative services writer about his own career and engaged in a pleasant, polite discourse. Patient agrees with treatment plan including increasing Namenda and remaining on scheduled Ativan. He understands he is being tapered off Zoloft. Patient got ketamine today he says he thinks it is helpful agrees to get it next week as well -just getting out of catatonic state; highly vulnerable to regression 03/07 patient remains doing well, eating, talking, going to groups; attending to ADLs and patient took a shower today. Sitting in the day room, mostly keeping to himself but friendly on approach. Discussed treatment plans and he agrees with ketamine -discussed case with Dr. Huerta and trying to see if it is possible for patient to get ketamine as an outpatient 03/08 urinated on the floor, but otherwise remains improved, in the milue more, eating, drinking, talking and asking questions. Pt asked about tx plan and when he might discharge and agreed with plan 03/09 This morning patient is bedding smelled of urine however he got up, showered, washed all his clothes and had his bedding changed. Patient reports he is good feeling well. Walked with creative services writer down the diaz and talked and patient says he thinks he will be getting ready to go home soon but wants to stay for continued treatment of ketamine. Asked staff if he could shave 03/10 continue current treatment plan; ketamine scheduled for Monday and Plan: CV Q 15 minute checks Ativan 1 mg t.i.d. patient seemed to improve once this was started in the ED; perhaps he should remain on this as a home medication Increased Namenda to 10 mg daily to help with preventing catatonia; used off- label Taper off Zoloft (part of outpatient plan) ketamine treatments twice a week Continue home medication Patient educated on: diagnosis and medication risk/benefits Informed Consent: understands Reason for continued inpatient stay Substantial Risk for: stable for discharge and rapid decompensation Time Spent With Patient Time: Total time managing care of this patient today ____ minutes.
[2025-03-10 19:48] VITALS: BP 133/62; PULSE 89; TEMP 37.1; O2SAT 94
[2025-03-10] MEDS: Venlafaxine HCl ER 150 MG CAP.ER.24H PO (21:07)
[2025-03-10] MEDS: Milk of Magnesia 30 ML ORAL.SUSP 5 ML PO (21:53)
[2025-03-11] VITALS (9 sets, daily range): BP systolic 106–145; BP diastolic 57–69; PULSE 84–96; RESP 16–24; TEMP 36.6–37.1; O2SAT 93–96
[2025-03-11] MEDS: Ferrous Sulfate 324 MG TABLET.DR PO (08:48)
--- NOTE | 2025-03-11 11:15 | HO.INF ---
pt brought down from m5 via wc by hospital staff. pt alert. skin wpd. rr even/unlabored. speaks in clear short sentences. answering questions appropriately. calm respectful demeanor. ambulates steadily from wc to chair. pt aware and agreeable to plan for ketamine infusion. iv access obtained. nsr noted on cardiac monitor technician. room air sat noted to be 94-96%, wctm. continuous cardiac and o2 sat monitoring will be maintained for ketamine infusion.
--- NOTE | 2025-03-11 11:40 | HO.INF ---
15 minutes into ketamine infusion; pt awake/calm/tolerating well; denies any complaints. sitting upright in chair. vss. wctm.
--- NOTE | 2025-03-11 12:28 | HO.INF ---
ketamine infusion complete. pt sleeping. vss. nsr on tele. wctm for 1 hour before pt rtns to m5 unit.
--- NOTE | 2025-03-11 13:16 | HO.INF ---
pt awake and alert. ambulated to br with steady gait. voided. denies any complaints. now tolerating po fluids well. r arm prn angio removed. vss. skin wpd. rr even/unlabored. speaks in clear full sentences. m5 unit called for pt pickup.
[2025-03-11] MEDS: Venlafaxine HCl ER 150 MG CAP.ER.24H PO (20:16)
[2025-03-11] MEDS: Milk of Magnesia 30 ML ORAL.SUSP 5 ML PO (20:18)
--- NOTE | 2025-03-11 21:28 | P.PNPSI_ITS ---
Subjective Subjective Date of Service: 03/11/25 Reason For Visit: Catatonia Interim History: Met with patient; discussed with team Doing well. Discussed ketamine and remaining here until Monday. Patient said you to retract 3 day notice. Discussed with Dr. Huerta and still trying to see if [facility] will allow ketamine as an outpatient Mental Status Exam Mental Status Exam Narrative: Pt is alert and oriented; behavior is cooperative, friendly and calm; patient is not in distress; dressed in hospital gown, attire with unkempt hair but adequate hygiene; mood is described as good and affect congruent, more expressive; eye contact appropriate; Speech is with some latency but normal rate, volume and prosody and not pressured; some psychomotor retardation present; thought process is organized and goal directed; Thought content is on tx; otherwise pertinent to relevant topics and without any delusional content, paranoid ideations or grandiosity; denies any SI/HI. Denies AVH and there is no evidence of perceptual disturbance. Patients insight and judgment appear intact. Diagnostics Vital Signs (24Hr): Vital Signs - 24 hr 03/11/25 08:00 03/11/25 10:57 03/11/25 11:39 Temperature 98.7 F 98.7 F Pulse Rate 96 93 92 Respiratory Rate 18 24 H 24 H Blood Pressure 145/69 H 123/60 106/65 Pulse Oximetry 93 95 96 Oxygen Delivery Method Room Air Room Air Room Air 03/11/25 11:54 03/11/25 12:09 03/11/25 12:24 Temperature Pulse Rate 92 93 94 Respiratory Rate 24 H 24 H 22 H Blood Pressure 123/58 L 123/64 126/58 L Pulse Oximetry 95 95 95 Oxygen Delivery Method Room Air Room Air 03/11/25 13:13 03/11/25 13:32 03/11/25 19:56 Temperature 98 F 98.5 F Pulse Rate 94 88 84 Respiratory Rate 20 16 Blood Pressure 113/59 L 116/59 L 112/57 L Pulse Oximetry 95 94 95 Oxygen Delivery Method Room Air Room Air Room Air BMI result Body Mass Index 29.8 Labs 03/04/25 05:12 03/05/25 08:58 Medications Medications Current Medications Acetaminophen (Acetaminophen 325 Mg Tablet) 650 mg PO Q6H PRN PRN Reason: Headache/Pain, Scale 1-10 Al Hydroxide/Mg Hydroxide (Magnesium Hydrox/Alum Hydrox 30 Ml Oral.Susp) 30 ml PO Q6H PRN PRN Reason: Heartburn/Nausea Aripiprazole (Aripiprazole 10 Mg Tablet) 10 mg PO DAILY@1730 [facility] Last Admin: 03/11/25 17:40 Dose: 10 mg Ascorbic Acid (Ascorbic Acid 500 Mg Tablet) 500 mg PO DAILY [facility] Last Admin: 03/11/25 08:48 Dose: 500 mg Clozapine (Clozapine 25 Mg Tablet) 25 mg PO DAILY@1999 [facility] Last Admin: 03/11/25 20:17 Dose: 25 mg Clozapine (Clozapine 100 Mg Tablet) 300 mg PO DAILY@1999 [facility] Last Admin: 03/11/25 20:17 Dose: 300 mg Divalproex Sodium (Divalproex Sodium 500 Mg Tablet.) 1,000 mg PO DAILY@1999 [facility] Last Admin: 03/11/25 20:17 Dose: 1,000 mg Ferrous Sulfate (Ferrous Sulfate 324 Mg Tablet.) 324 mg PO DAILY [facility] Last Admin: 03/11/25 08:48 Dose: 324 mg Finasteride (Finasteride 5 Mg Tablet) 5 mg PO DAILY [facility] Last Admin: 03/11/25 08:48 Dose: 5 mg Lorazepam (Lorazepam 1 Mg Tablet) 1 mg PO TID [facility] Last Admin: 03/11/25 20:17 Dose: 1 mg Magnesium Hydroxide (Milk Of Magnesia 30 Ml Oral.Susp) 5 ml PO BEDTIME [facility] Last Admin: 03/11/25 20:18 Dose: 5 ml Magnesium Hydroxide (Milk Of Magnesia 30 Ml Oral.Susp) 30 ml PO DAILY PRN PRN Reason: Constipation Memantine (Memantine Hcl 10 Mg Tablet) 10 mg PO DAILY [facility] Last Admin: 03/11/25 08:48 Dose: 10 mg Mirtazapine (Mirtazapine 7.5 Mg Tablet) 22.5 mg PO BEDTIME@1999 [facility] Last Admin: 03/11/25 20:17 Dose: 22.5 mg Olanzapine (Olanzapine Odt 10 Mg Tab.Rapdis) 5 mg TRANSLINGU BID PRN PRN Reason: agitation Polyethylene Glycol (Polyethylene Glycol 3350 17 Gm Powd.Pack) 17 gm PO DAILY [facility] Last Admin: 03/11/25 08:49 Dose: 17 gm Pramipexole Dihydrochloride (Pramipexole Di-Hcl 0.25 Mg Tablet) 0.5 mg PO TID [facility] Last Admin: 03/11/25 20:17 Dose: 0.5 mg Sertraline HCl (Sertraline Hcl 25 Mg Tablet) 25 mg PO DAILY [facility] Tamsulosin HCl (Tamsulosin Hcl 0.4 Mg Capsule) 0.8 mg PO BEDTIME [facility] Last Admin: 03/11/25 20:22 Dose: 0.8 mg Thiamine HCl (Thiamine Hcl 100 Mg Tablet) 100 mg PO DAILY [facility] Last Admin: 03/11/25 08:48 Dose: 100 mg Trazodone HCl (Trazodone Hcl 50 Mg Tablet) 50 mg PO BEDTIME [facility] Last Admin: 03/11/25 20:16 Dose: 50 mg Venlafaxine HCl (Venlafaxine Hcl Er 150 Mg Cap.Er.24h) 150 mg PO BEDTIME [facility] Last Admin: 03/11/25 20:16 Dose: 150 mg Allergies Allergies Allergy/AdvReac Type Severity Reaction Status Date / Time No Known Allergies (NKA) Allergy Unknown NONE Verified 02/28/25 02:52 Assessment & Plan Assessment & Plan (1) Schizoaffective disorder: Status: Acute Code(s): F25.9 - Schizoaffective disorder, unspecified (2) Catatonia: Status: Resolved Code(s): F06.1 - Catatonic disorder due to known physiological condition (3) Tardive dyskinesia: Status: Acute Code(s): G24.01 - Drug induced subacute dyskinesia Plan hpi: Mr. Tenorio is a 59 year-old male with a hx of schizoaffective disorder, multiple bouts of catatonia, who was recently discharged from on 12/30/2024 after prolonged admission for catatonia. Patient was transferred from his correction instead of catatonia, covered in feces and urine, initially not verbally responding but was able to follow commands. Patient was started on Ativan 1 mg t.i.d. which although not typically that helpful for this patient, seems to have helped treat his catatonic symptoms and patient began eating and talking. On M5 unit, patient says he is not sure what happened. He said he was taking his medications as far as I know and then only remembers being taken to the hospital but is unaware of any of the circumstances surrounding it. He says he is feeling much better now and thinks that he is getting close to being back to baseline. Agrees with extending ketamine treatments as that has helped most in the past. Formulation/clinical reasoning: Patient seems to doing better; typically Ativan does not work with patient but it seems to be helping now. Patient will get ketamine treatment starting tomorrow with which he agrees Hospital course: 03/06Patient reports he is doing well feels pretty much back to his regular self. Patient asked underwriter mortgage loan several questions about his treatment, medications and plans; also asked underwriter mortgage loan about his own career and engaged in a pleasant, polite discourse. Patient agrees with treatment plan including increasing Namenda and remaining on scheduled Ativan. He understands he is being tapered off Zoloft. Patient got ketamine today he says he thinks it is helpful agrees to get it next week as well -just getting out of catatonic state; highly vulnerable to regression 03/07 patient remains doing well, eating, talking, going to groups; attending to ADLs and patient took a shower today. Sitting in the day room, mostly keeping to himself but friendly on approach. Discussed treatment plans and he agrees with ketamine -discussed case with Dr. Huerta and trying to see if it is possible for patient to get ketamine as an outpatient 03/08 urinated on the floor, but otherwise remains improved, in the milue more, eating, drinking, talking and asking questions. Pt asked about tx plan and when he might discharge and agreed with plan 03/09 This morning patient is bedding smelled of urine however he got up, showered, washed all his clothes and had his bedding changed. Patient reports he is good feeling well. Walked with underwriter mortgage loan down the diaz and talked and patient says he thinks he will be getting ready to go home soon but wants to stay for continued treatment of ketamine. Asked staff if he could shave 03/10 continue current treatment plan; ketamine scheduled for Monday and Plan: CV Q 15 minute checks Ativan 1 mg t.i.d. patient seemed to improve once this was started in the ED; perhaps he should remain on this as a home medication Increased Namenda to 10 mg daily to help with preventing catatonia; used off- label Taper off Zoloft (part of outpatient plan) ketamine treatments twice a week Continue home medication Patient educated on: medication risk/benefits and therapeutic strategies Informed Consent: understands Reason for continued inpatient stay Substantial Risk for: stable for discharge and rapid decompensation Time Spent With Patient Time: Total time managing care of this patient today ____ minutes.
[2025-03-12 08:00] VITALS: BP 119/68; PULSE 78; TEMP 36.9; O2SAT 99
[2025-03-12] MEDS: Ferrous Sulfate 324 MG TABLET.DR PO (08:59)
--- NOTE | 2025-03-12 09:50 | HO.PSYCHPN ---
Subjective Subjective Date of Service: 03/12/25 Reason For Visit: Catatonia Interim History: met with patient; discussed with team No change in presentation, remains overall feeling better, says he is in a good mood, eating and drinking well, out in the milieu (though keeping to himself). Agrees to get ketamine on and retracted 3 day notice. Left eye looks little swollen though patient says he does not notice Diagnostics Vital Signs (24Hr): Vital Signs - 24 hr 03/11/25 10:57 03/11/25 11:39 03/11/25 11:54 Temperature 98.7 F Pulse Rate 93 92 92 Respiratory Rate 24 H 24 H 24 H Blood Pressure 123/60 106/65 123/58 L Pulse Oximetry 95 96 95 Oxygen Delivery Method Room Air Room Air 03/11/25 12:09 03/11/25 12:24 03/11/25 13:13 Temperature Pulse Rate 93 94 94 Respiratory Rate 24 H 22 H 20 Blood Pressure 123/64 126/58 L 113/59 L Pulse Oximetry 95 95 95 Oxygen Delivery Method Room Air Room Air Room Air 03/11/25 13:32 03/11/25 19:56 Temperature 98 F 98.5 F Pulse Rate 88 84 Respiratory Rate 16 Blood Pressure 116/59 L 112/57 L Pulse Oximetry 94 95 Oxygen Delivery Method Room Air Room Air BMI result Body Mass Index 29.8 Labs 03/04/25 05:12 03/05/25 08:58 Medications Medications Current Medications Acetaminophen (Acetaminophen 325 Mg Tablet) 650 mg PO Q6H PRN PRN Reason: Headache/Pain, Scale 1-10 Al Hydroxide/Mg Hydroxide (Magnesium Hydrox/Alum Hydrox 30 Ml Oral.Susp) 30 ml PO Q6H PRN PRN Reason: Heartburn/Nausea Aripiprazole (Aripiprazole 10 Mg Tablet) 10 mg PO DAILY@1730 [facility] Last Admin: 03/11/25 17:40 Dose: 10 mg Ascorbic Acid (Ascorbic Acid 500 Mg Tablet) 500 mg PO DAILY [facility] Last Admin: 03/12/25 08:59 Dose: 500 mg Clozapine (Clozapine 25 Mg Tablet) 25 mg PO DAILY@1999 [facility] Last Admin: 03/11/25 20:17 Dose: 25 mg Clozapine (Clozapine 100 Mg Tablet) 300 mg PO DAILY@1999 [facility] Last Admin: 03/11/25 20:17 Dose: 300 mg Divalproex Sodium (Divalproex Sodium 500 Mg Tablet.) 1,000 mg PO DAILY@1999 [facility] Last Admin: 03/11/25 20:17 Dose: 1,000 mg Ferrous Sulfate (Ferrous Sulfate 324 Mg Tablet.) 324 mg PO DAILY [facility] Last Admin: 03/12/25 08:59 Dose: 324 mg Finasteride (Finasteride 5 Mg Tablet) 5 mg PO DAILY [facility] Last Admin: 03/12/25 08:59 Dose: 5 mg Lorazepam (Lorazepam 1 Mg Tablet) 1 mg PO TID [facility] Last Admin: 03/12/25 08:59 Dose: 1 mg Magnesium Hydroxide (Milk Of Magnesia 30 Ml Oral.Susp) 5 ml PO BEDTIME [facility] Last Admin: 03/11/25 20:18 Dose: 5 ml Magnesium Hydroxide (Milk Of Magnesia 30 Ml Oral.Susp) 30 ml PO DAILY PRN PRN Reason: Constipation Memantine (Memantine Hcl 10 Mg Tablet) 10 mg PO DAILY [facility] Last Admin: 03/12/25 08:59 Dose: 10 mg Mirtazapine (Mirtazapine 7.5 Mg Tablet) 22.5 mg PO BEDTIME@1999 [facility] Last Admin: 03/11/25 20:17 Dose: 22.5 mg Olanzapine (Olanzapine Odt 10 Mg Tab.Rapdis) 5 mg TRANSLINGU BID PRN PRN Reason: agitation Polyethylene Glycol (Polyethylene Glycol 3350 17 Gm Powd.Pack) 17 gm PO DAILY [facility] Last Admin: 03/12/25 09:00 Dose: 17 gm Pramipexole Dihydrochloride (Pramipexole Di-Hcl 0.25 Mg Tablet) 0.5 mg PO TID [facility] Last Admin: 03/12/25 08:59 Dose: 0.5 mg Sertraline HCl (Sertraline Hcl 25 Mg Tablet) 25 mg PO DAILY [facility] Last Admin: 03/12/25 08:59 Dose: 25 mg Tamsulosin HCl (Tamsulosin Hcl 0.4 Mg Capsule) 0.8 mg PO BEDTIME [facility] Last Admin: 03/11/25 20:22 Dose: 0.8 mg Thiamine HCl (Thiamine Hcl 100 Mg Tablet) 100 mg PO DAILY [facility] Last Admin: 03/12/25 08:59 Dose: 100 mg Trazodone HCl (Trazodone Hcl 50 Mg Tablet) 50 mg PO BEDTIME [facility] Last Admin: 03/11/25 20:16 Dose: 50 mg Venlafaxine HCl (Venlafaxine Hcl Er 150 Mg Cap.Er.24h) 150 mg PO BEDTIME [facility] Last Admin: 03/11/25 20:16 Dose: 150 mg Allergies Allergies Allergy/AdvReac Type Severity Reaction Status Date / Time No Known Allergies (NKA) Allergy Unknown NONE Verified 02/28/25 02:52 Assessment & Plan Assessment & Plan (1) Schizoaffective disorder: Status: Acute Code(s): F25.9 - Schizoaffective disorder, unspecified (2) Catatonia: Status: Resolved Code(s): F06.1 - Catatonic disorder due to known physiological condition (3) Tardive dyskinesia: Status: Acute Code(s): G24.01 - Drug induced subacute dyskinesia Plan hpi: Mr. Tenorio is a 59 year-old male with a hx of schizoaffective disorder, multiple bouts of catatonia, who was recently discharged from on 12/30/2024 after prolonged admission for catatonia. Patient was transferred from his fdc instead of catatonia, covered in feces and urine, initially not verbally responding but was able to follow commands. Patient was started on Ativan 1 mg t.i.d. which although not typically that helpful for this patient, seems to have helped treat his catatonic symptoms and patient began eating and talking. On M5 unit, patient says he is not sure what happened. He said he was taking his medications as far as I know and then only remembers being taken to the hospital but is unaware of any of the circumstances surrounding it. He says he is feeling much better now and thinks that he is getting close to being back to baseline. Agrees with extending ketamine treatments as that has helped most in the past. Formulation/clinical reasoning: Patient seems to doing better; typically Ativan does not work with patient but it seems to be helping now. Patient will get ketamine treatment starting tomorrow with which he agrees Hospital course: 03/06Patient reports he is doing well feels pretty much back to his regular self. Patient asked telegraphic typewriter mechanic several questions about his treatment, medications and plans; also asked telegraphic typewriter mechanic about his own career and engaged in a pleasant, polite discourse. Patient agrees with treatment plan including increasing Namenda and remaining on scheduled Ativan. He understands he is being tapered off Zoloft. Patient got ketamine today he says he thinks it is helpful agrees to get it next week as well -just getting out of catatonic state; highly vulnerable to regression 03/07 patient remains doing well, eating, talking, going to groups; attending to ADLs and patient took a shower today. Sitting in the day room, mostly keeping to himself but friendly on approach. Discussed treatment plans and he agrees with ketamine -discussed case with Dr. Huerta and trying to see if it is possible for patient to get ketamine as an outpatient 03/08 urinated on the floor, but otherwise remains improved, in the milue more, eating, drinking, talking and asking questions. Pt asked about tx plan and when he might discharge and agreed with plan 03/09 This morning patient is bedding smelled of urine however he got up, showered, washed all his clothes and had his bedding changed. Patient reports he is good feeling well. Walked with telegraphic typewriter mechanic down the diaz and talked and patient says he thinks he will be getting ready to go home soon but wants to stay for continued treatment of ketamine. Asked staff if he could shave 03/10 continue current treatment plan; ketamine scheduled for Monday and 03/12No change in presentation, remains overall feeling better, says he is in a good mood, eating and drinking well, out in the milieu (though keeping to himself). Agrees to get ketamine on and retracted 3 day notice. Left eye looks little swollen though patient says he does not notice (ordered warm compress) -discussed with Dr. Huerta on trying to see if patient can get ketamine as an outpatient by periodically coming to [facility] infusion [facility] Plan: CV Q 15 minute checks Ativan 1 mg t.i.d. patient seemed to improve once this was started in the ED; perhaps he should remain on this as a home medication Increased Namenda to 10 mg daily to help with preventing catatonia; used off-label Taper off Zoloft (part of outpatient plan) ketamine treatments twice a week Continue home medication Patient educated on: diagnosis and medication risk/benefits Informed Consent: understands Reason for continued inpatient stay Substantial Risk for: stable for discharge Time Spent With Patient Time: Total time managing care of this patient today ____ minutes.
--- NOTE | 2025-03-12 19:10 | PC.NURSE ---
warm compress applied to L eye per provider's communication order.
[2025-03-12 20:13] VITALS: BP 130/58; PULSE 97; RESP 16; TEMP 37.1; O2SAT 96
[2025-03-12] MEDS: Venlafaxine HCl ER 150 MG CAP.ER.24H PO (20:44)
[2025-03-12] MEDS: Milk of Magnesia 30 ML ORAL.SUSP 5 ML PO (20:44)
[2025-03-13] VITALS (12 sets, daily range): BP systolic 110–137; BP diastolic 56–74; PULSE 78–95; RESP 16–24; TEMP 36.5–36.8; O2SAT 93–96; BMI 31.9
--- NOTE | 2025-03-13 07:58 | HO.INF ---
pt arrived in w/ hospital staff member. alert. calm/cooperative. skin wpd. rr even/unlabored. transferred from to infusion chair with steady gait. pt placed on continuous monitoring including tele, bp, and o2 sat. nsr on tele. vss. iv access obtained in single attempt to r hand with 24g angio. pharmacy called for ketamine.
--- NOTE | 2025-03-13 09:08 | HO.INF ---
ketamine infusion complete. pt sleeping. rr even/unlabored. nsr on tele. o2 sat 93-95% on ra. rr 20-24. wctm.
--- NOTE | 2025-03-13 09:21 | P.PNPSI_ITS ---
Subjective Subjective Date of Service: 03/13/25 Reason For Visit: Catatonia Interim History: Visable in milieu post treatment. Asking to attend to calista Felix. Reports he slept well and feels well. Denies current questions/concerns regarding medicines/treatment. Denies SI,HI, AH,VH. Smiling and joking with the team this afternoon briefly. Medication Compliance: Yes Side effects from medications: No Attending Groups: Intermittent Review of Systems Review of Systems Denies Mental Status Exam Mental Status Exam Patient Appearance: Fatigued Patient Orientation: Person, Place and Situation Level of Consciousness: Alert Patient Behavior: Cooperative Mood Description: Flat Affect Description: Flat Ability to Follow Directions: Good Speech Pattern: Spontaneous Speech Thought Content: positive for Suicidal Ideation (denies) Depressive Symptoms: Thoughts of /Suicide (denies) Judgement: Fair Diagnostics Vital Signs (24Hr): Vital Signs - 24 hr 03/12/25 20:13 03/13/25 07:55 03/13/25 08:08 Temperature 98.7 F 97.7 F Pulse Rate 97 83 83 Respiratory Rate 16 16 24 H Blood Pressure 130/58 L 130/72 126/74 Pulse Oximetry 96 94 Oxygen Delivery Method Room Air Room Air 03/13/25 08:15 03/13/25 08:30 03/13/25 08:45 Temperature Pulse Rate 80 82 78 Respiratory Rate 24 H 22 H 20 Blood Pressure 115/70 122/72 110/63 Pulse Oximetry 94 94 93 Oxygen Delivery Method Room Air Room Air Room Air 03/13/25 09:00 03/13/25 09:14 Temperature Pulse Rate 78 80 Respiratory Rate 24 H 24 H Blood Pressure 112/56 L 118/66 Pulse Oximetry 94 94 Oxygen Delivery Method Room Air Room Air BMI result Body Mass Index 29.8 Labs 03/04/25 05:12 03/05/25 08:58 Medications Medications Current Medications Acetaminophen (Acetaminophen 325 Mg Tablet) 650 mg PO Q6H PRN PRN Reason: Headache/Pain, Scale 1-10 Al Hydroxide/Mg Hydroxide (Magnesium Hydrox/Alum Hydrox 30 Ml Oral.Susp) 30 ml PO Q6H PRN PRN Reason: Heartburn/Nausea Aripiprazole (Aripiprazole 10 Mg Tablet) 10 mg PO DAILY@1730 [facility] Last Admin: 03/12/25 16:51 Dose: 10 mg Ascorbic Acid (Ascorbic Acid 500 Mg Tablet) 500 mg PO DAILY [facility] Last Admin: 03/12/25 08:59 Dose: 500 mg Clozapine (Clozapine 25 Mg Tablet) 25 mg PO DAILY@1999 [facility] Last Admin: 03/12/25 20:39 Dose: 25 mg Clozapine (Clozapine 100 Mg Tablet) 300 mg PO DAILY@1999 [facility] Last Admin: 03/12/25 20:40 Dose: 300 mg Divalproex Sodium (Divalproex Sodium 500 Mg Tablet.) 1,000 mg PO DAILY@1999 [facility] Last Admin: 03/12/25 20:40 Dose: 1,000 mg Ferrous Sulfate (Ferrous Sulfate 324 Mg Tablet.) 324 mg PO DAILY [facility] Last Admin: 03/12/25 08:59 Dose: 324 mg Finasteride (Finasteride 5 Mg Tablet) 5 mg PO DAILY [facility] Last Admin: 03/12/25 08:59 Dose: 5 mg Lorazepam (Lorazepam 1 Mg Tablet) 1 mg PO TID [facility] Last Admin: 03/12/25 20:42 Dose: 1 mg Magnesium Hydroxide (Milk Of Magnesia 30 Ml Oral.Susp) 5 ml PO BEDTIME [facility] Last Admin: 03/12/25 20:44 Dose: 5 ml Magnesium Hydroxide (Milk Of Magnesia 30 Ml Oral.Susp) 30 ml PO DAILY PRN PRN Reason: Constipation Memantine (Memantine Hcl 10 Mg Tablet) 10 mg PO DAILY [facility] Last Admin: 03/12/25 08:59 Dose: 10 mg Mirtazapine (Mirtazapine 7.5 Mg Tablet) 22.5 mg PO BEDTIME@1999 [facility] Last Admin: 03/12/25 20:41 Dose: 22.5 mg Olanzapine (Olanzapine Odt 10 Mg Tab.Rapdis) 5 mg TRANSLINGU BID PRN PRN Reason: agitation Polyethylene Glycol (Polyethylene Glycol 3350 17 Gm Powd.Pack) 17 gm PO DAILY [facility] Last Admin: 03/12/25 09:00 Dose: 17 gm Pramipexole Dihydrochloride (Pramipexole Di-Hcl 0.25 Mg Tablet) 0.5 mg PO TID [facility] Last Admin: 03/12/25 20:42 Dose: 0.5 mg Tamsulosin HCl (Tamsulosin Hcl 0.4 Mg Capsule) 0.8 mg PO BEDTIME [facility] Last Admin: 03/12/25 20:43 Dose: 0.8 mg Thiamine HCl (Thiamine Hcl 100 Mg Tablet) 100 mg PO DAILY [facility] Last Admin: 03/12/25 08:59 Dose: 100 mg Trazodone HCl (Trazodone Hcl 50 Mg Tablet) 50 mg PO BEDTIME [facility] Last Admin: 03/12/25 20:43 Dose: 50 mg Venlafaxine HCl (Venlafaxine Hcl Er 150 Mg Cap.Er.24h) 150 mg PO BEDTIME [facility] Last Admin: 03/12/25 20:44 Dose: 150 mg Allergies Allergies Allergy/AdvReac Type Severity Reaction Status Date / Time No Known Allergies (NKA) Allergy Unknown NONE Verified 02/28/25 02:52 Assessment & Plan Assessment & Plan (1) Schizoaffective disorder: Status: Acute Code(s): F25.9 - Schizoaffective disorder, unspecified (2) Catatonia: Status: Resolved Code(s): F06.1 - Catatonic disorder due to known physiological condition (3) Tardive dyskinesia: Status: Acute Code(s): G24.01 - Drug induced subacute dyskinesia Plan hpi: Mr. Tenorio is a 59 year-old male with a hx of schizoaffective disorder, multiple bouts of catatonia, who was recently discharged from on 12/30/2024 after prolonged admission for catatonia. Patient was transferred from his custodial instead of catatonia, covered in feces and urine, initially not verbally responding but was able to follow commands. Patient was started on Ativan 1 mg t.i.d. which although not typically that helpful for this patient, seems to have helped treat his catatonic symptoms and patient began eating and talking. On M5 unit, patient says he is not sure what happened. He said he was taking his medications as far as I know and then only remembers being taken to the hospital but is unaware of any of the circumstances surrounding it. He says he is feeling much better now and thinks that he is getting close to being back to baseline. Agrees with extending ketamine treatments as that has helped most in the past. Formulation/clinical reasoning: Patient seems to doing better; typically Ativan does not work with patient but it seems to be helping now. Patient will get ketamine treatment starting tomorrow with which he agrees Hospital course: 03/06Patient reports he is doing well feels pretty much back to his regular self. Patient asked television writer several questions about his treatment, medications and plans; also asked television writer about his own career and engaged in a pleasant, polite discourse. Patient agrees with treatment plan including increasing Namenda and remaining on scheduled Ativan. He understands he is being tapered off Zoloft. Patient got ketamine today he says he thinks it is helpful agrees to get it next week as well -just getting out of catatonic state; highly vulnerable to regression 03/07 patient remains doing well, eating, talking, going to groups; attending to ADLs and patient took a shower today. Sitting in the day room, mostly keeping to himself but friendly on approach. Discussed treatment plans and he agrees with ketamine -discussed case with Dr. Huerta and trying to see if it is possible for patient to get ketamine as an outpatient 03/08 urinated on the floor, but otherwise remains improved, in the milue more, eating, drinking, talking and asking questions. Pt asked about tx plan and when he might discharge and agreed with plan 03/09 This morning patient is bedding smelled of urine however he got up, showered, washed all his clothes and had his bedding changed. Patient reports he is good feeling well. Walked with television writer down the diaz and talked and patient says he thinks he will be getting ready to go home soon but wants to stay for continued treatment of ketamine. Asked staff if he could shave 03/10 continue current treatment plan; ketamine scheduled for Monday and 03/12No change in presentation, remains overall feeling better, says he is in a good mood, eating and drinking well, out in the milieu (though keeping to himself). Agrees to get ketamine on and retracted 3 day notice. Left eye looks little swollen though patient says he does not notice (ordered warm compress) -discussed with Dr. Huerta on trying to see if patient can get ketamine as an outpatient by periodically coming [place] [facility] [place] 03/13/25: Visable in milieu post treatment. Asking to attend to ADL's, shave. Reports he slept well and feels well. Denies current questions/concerns regarding medicines/treatment. Denies SI,HI, AH,VH. Smiling and joking with the team this afternoon briefly. Plan: CV Q 15 minute checks Ativan 1 mg t.i.d. patient seemed to improve once this was started in the ED; perhaps he should remain on this as a home medication Increased Namenda to 10 mg daily to help with preventing catatonia; used off- label Taper off Zoloft (part of outpatient plan) ketamine treatments twice a week Continue home medication Reason for continued inpatient stay Substantial Risk for: rapid decompensation Time Spent With Patient Time: Total time managing care of this patient today ____ minutes.
--- NOTE | 2025-03-13 10:08 | HO.INF ---
24g r hand removed. pt tolerated well. alert/calm/cooperative/respectful. vss. nsr on tele prior to removing leads. pt denies complaints. pt drank a 75ml cup of coca cola. pt denies having to use restroom at this time. m5 staff member picked pt up. pt left unit in [place].
[2025-03-13] MEDS: Ferrous Sulfate 324 MG TABLET.DR PO (10:29)
[2025-03-13] MEDS: Milk of Magnesia 30 ML ORAL.SUSP 5 ML PO (20:54)
[2025-03-13] MEDS: Venlafaxine HCl ER 150 MG CAP.ER.24H PO (20:54)
[2025-03-14 08:00] VITALS: BP 140/65; PULSE 90; TEMP 36.2; O2SAT 96
[2025-03-14] MEDS: Ferrous Sulfate 324 MG TABLET.DR PO (08:37)
[2025-03-14 13:18] LABS: Neut%MD 80.6 %; WBCANC 7.0 X10*3/uL
--- NOTE | 2025-03-14 14:18 | P.PNPSI_ITS ---
Subjective Subjective Date of Service: 03/14/25 Reason For Visit: Catatonia Interim History: met with patient; discussed with team pt had odd event this morning. When nurse came in he was talking in giberish; then he tried to grab stuff off her cart and then advanced toward her and tried to tickle her saying, tickle, tickle, tickle and nurse had to back away and fend off (which she was able to do). However, this resolved on its own. And about 1/2 hour later, patient was back to being organized, polite, cooperative and organized in speech and behavior. He did not remember that he did this and was apologetic. He understood that this will delay his discharge which he said he felt fine about. Of note patient was dressed in regular clothes, well-groomed, clean-shaven and talkative, asking tech writer appropriate questions and having a given and take dialogue Mental Status Exam Mental Status Exam Narrative: Pt is alert and oriented; today one fleeting odd moment of dysregulated and bizarre behavior; seemed to resolve on its own and thus forward behavior is cooperative, friendly and calm; patient is not in distress; dressed in casual attire, clean shaven and with good grooming and hygiene; mood is described as good and affect congruent; eye contact appropriate; Speech is normal rate, volume and prosody and not pressured; no psychomotor agitation/retardation present; thought process is organized and goal directed; Thought content is on tx; otherwise pertinent to relevant topics and without any delusional content, paranoid ideations or grandiosity; denies any SI/HI. Denies AVH and there is no evidence of perceptual disturbance. Patients insight and judgment appear intact. Diagnostics Vital Signs (24Hr): Vital Signs - 24 hr 03/13/25 20:00 03/14/25 08:00 Temperature 97.7 F 97.1 F Pulse Rate 95 90 Respiratory Rate 18 Blood Pressure 137/64 140/65 H Pulse Oximetry 96 96 Oxygen Delivery Method Room Air Room Air BMI result Body Mass Index 31.9 Labs 03/04/25 05:12 03/05/25 08:58 Labs: Laboratory Results - last 48 hr 03/14/25 12:43 Absolute Neuts (auto) 5.6 Medications Medications Current Medications Acetaminophen (Acetaminophen 325 Mg Tablet) 650 mg PO Q6H PRN PRN Reason: Headache/Pain, Scale 1-10 Al Hydroxide/Mg Hydroxide (Magnesium Hydrox/Alum Hydrox 30 Ml Oral.Susp) 30 ml PO Q6H PRN PRN Reason: Heartburn/Nausea Aripiprazole (Aripiprazole 10 Mg Tablet) 10 mg PO DAILY@1730 [facility] Last Admin: 03/13/25 17:10 Dose: 10 mg Ascorbic Acid (Ascorbic Acid 500 Mg Tablet) 500 mg PO DAILY [facility] Last Admin: 03/14/25 08:37 Dose: 500 mg Clozapine (Clozapine 25 Mg Tablet) 25 mg PO DAILY@1999 [facility] Last Admin: 03/13/25 20:50 Dose: 25 mg Clozapine (Clozapine 100 Mg Tablet) 300 mg PO DAILY@1999 [facility] Last Admin: 03/13/25 20:50 Dose: 300 mg Divalproex Sodium (Divalproex Sodium 500 Mg Tablet.) 1,000 mg PO DAILY@1999 [facility] Last Admin: 03/13/25 20:50 Dose: 1,000 mg Ferrous Sulfate (Ferrous Sulfate 324 Mg Tablet.) 324 mg PO DAILY [facility] Last Admin: 03/14/25 08:37 Dose: 324 mg Finasteride (Finasteride 5 Mg Tablet) 5 mg PO DAILY [facility] Last Admin: 03/14/25 08:37 Dose: 5 mg Lorazepam (Lorazepam 1 Mg Tablet) 1 mg PO TID [facility] Last Admin: 03/14/25 08:36 Dose: 1 mg Magnesium Hydroxide (Milk Of Magnesia 30 Ml Oral.Susp) 5 ml PO BEDTIME [facility] Last Admin: 03/13/25 20:54 Dose: 5 ml Magnesium Hydroxide (Milk Of Magnesia 30 Ml Oral.Susp) 30 ml PO DAILY PRN PRN Reason: Constipation Memantine (Memantine Hcl 10 Mg Tablet) 10 mg PO DAILY [facility] Last Admin: 03/14/25 08:37 Dose: 10 mg Mirtazapine (Mirtazapine 7.5 Mg Tablet) 22.5 mg PO BEDTIME@1999 [facility] Last Admin: 03/13/25 20:51 Dose: 22.5 mg Olanzapine (Olanzapine Odt 10 Mg Tab.Rapdis) 5 mg TRANSLINGU BID PRN PRN Reason: agitation Polyethylene Glycol (Polyethylene Glycol 3350 17 Gm Powd.Pack) 17 gm PO DAILY [facility] Last Admin: 03/14/25 08:37 Dose: 17 gm Pramipexole Dihydrochloride (Pramipexole Di-Hcl 0.25 Mg Tablet) 0.5 mg PO TID [facility] Last Admin: 03/14/25 08:36 Dose: 0.5 mg Tamsulosin HCl (Tamsulosin Hcl 0.4 Mg Capsule) 0.8 mg PO BEDTIME [facility] Last Admin: 03/13/25 20:53 Dose: 0.8 mg Thiamine HCl (Thiamine Hcl 100 Mg Tablet) 100 mg PO DAILY [facility] Last Admin: 03/14/25 08:36 Dose: 100 mg Trazodone HCl (Trazodone Hcl 50 Mg Tablet) 50 mg PO BEDTIME [facility] Last Admin: 03/13/25 20:54 Dose: 50 mg Venlafaxine HCl (Venlafaxine Hcl Er 150 Mg Cap.Er.24h) 150 mg PO BEDTIME [facility] Last Admin: 03/13/25 20:54 Dose: 150 mg Allergies Allergies Allergy/AdvReac Type Severity Reaction Status Date / Time No Known Allergies (NKA) Allergy Unknown NONE Verified 02/28/25 02:52 Assessment & Plan Assessment & Plan (1) Schizoaffective disorder: Status: Acute Code(s): F25.9 - Schizoaffective disorder, unspecified (2) Catatonia: Status: Resolved Code(s): F06.1 - Catatonic disorder due to known physiological condition (3) Tardive dyskinesia: Status: Acute Code(s): G24.01 - Drug induced subacute dyskinesia Plan hpi: Mr. Tenorio is a 59 year-old male with a hx of schizoaffective disorder, multiple bouts of catatonia, who was recently discharged from on 12/30/2024 after prolonged admission for catatonia. Patient was transferred from his [facility] instead of catatonia, covered in feces and urine, initially not verbally responding but was able to follow commands. Patient was started on Ativan 1 mg t.i.d. which although not typically that helpful for this patient, seems to have helped treat his catatonic symptoms and patient began eating and talking. On M5 unit, patient says he is not sure what happened. He said he was taking his medications as far as I know and then only remembers being taken to the hospital but is unaware of any of the circumstances surrounding it. He says he is feeling much better now and thinks that he is getting close to being back to baseline. Agrees with extending ketamine treatments as that has helped most in the past. Formulation/clinical reasoning: Patient seems to doing better; typically Ativan does not work with patient but it seems to be helping now. Patient will get ketamine treatment starting tomorrow with which he agrees Hospital course: 03/06Patient reports he is doing well feels pretty much back to his regular self. Patient asked tech writer several questions about his treatment, medications and plans; also asked tech writer about his own career and engaged in a pleasant, polite discourse. Patient agrees with treatment plan including increasing Namenda and remaining on scheduled Ativan. He understands he is being tapered off Zoloft. Patient got ketamine today he says he thinks it is helpful agrees to get it next week as well -just getting out of catatonic state; highly vulnerable to regression 03/07 patient remains doing well, eating, talking, going to groups; attending to ADLs and patient took a shower today. Sitting in the day room, mostly keeping to himself but friendly on approach. Discussed treatment plans and he agrees with ketamine -discussed case with Dr. Huerta and trying to see if it is possible for patient to get ketamine as an outpatient 03/08 urinated on the floor, but otherwise remains improved, in the milue more, eating, drinking, talking and asking questions. Pt asked about tx plan and when he might discharge and agreed with plan 03/09 This morning patient is bedding smelled of urine however he got up, showered, washed all his clothes and had his bedding changed. Patient reports he is good feeling well. Walked with tech writer down the diaz and talked and patient says he thinks he will be getting ready to go home soon but wants to stay for continued treatment of ketamine. Asked staff if he could shave 03/10 continue current treatment plan; ketamine scheduled for Monday and 03/12No change in presentation, remains overall feeling better, says he is in a good mood, eating and drinking well, out in the milieu (though keeping to himself). Agrees to get ketamine on and retracted 3 day notice. Left eye looks little swollen though patient says he does not notice (ordered warm compress) -discussed with Dr. Huerta on trying to see if patient can get ketamine as an outpatient by periodically coming to [facility] infusion center 03/13/25: Visable in milieu post treatment. Asking to attend to calista Felix. Reports he slept well and feels well. Denies current questions/concerns regarding medicines/treatment. Denies SI,HI, AH,VH. Smiling and joking with the team this afternoon briefly. 03/14 pt had odd event this morning. When nurse came in he was talking in giberish; then he tried to grab stuff off her cart and then advanced toward her and tried to tickle her saying, tickle, tickle, tickle and nurse had to back away and fend off (which she was able to do). However, this resolved on its own. And about 1/2 hour later, patient was back to being organized, polite, cooperative and organized in speech and behavior. He did not remember that he did this and was apologetic. He understood that this will delay his discharge which he said he felt fine about. Of note patient was dressed in regular clothes, well-groomed, clean-shaven and talkative, asking tech writer appropriate questions and having a given and take dialogue -tech writer called outpatient psychiatric provider and left voicemail -tech writer expects patient to remain doing overall well to be able to discharge on Monday MED CHANGES: this admission 1.Started Ativan 1 mg t.i.d. 2.Increased Namenda to 10 mg daily (up from 5 mg) 3.Discontinued sertraline Plan: CV Q 15 minute checks Started Ativan 1 mg t.i.d. Increased Namenda to 10 mg daily (up from 5 mg) Discontinued sertraline ketamine treatments twice a week Continue home medication Patient educated on: diagnosis, medication risk/benefits and therapeutic strategies Informed Consent: understands Reason for continued inpatient stay Substantial Risk for: rapid decompensation Time Spent With Patient Time: Total time managing care of this patient today ____ minutes.
[2025-03-14 20:00] VITALS: BP 124/77; PULSE 100; RESP 18; TEMP 37; O2SAT 95
[2025-03-14] MEDS: Venlafaxine HCl ER 150 MG CAP.ER.24H PO (20:29)
[2025-03-14] MEDS: Milk of Magnesia 30 ML ORAL.SUSP 5 ML PO (20:30)
[2025-03-15 08:00] VITALS: BP 118/60; PULSE 90; RESP 18; TEMP 37.1; O2SAT 93
--- NOTE | 2025-03-15 08:36 | HO.PSYCHPN ---
Subjective Subjective Date of Service: 03/15/25 Reason For Visit: Catatonia Interim History: met with patient; discussed with team Patient reports his mood is improved. He is pleasant and cooperative. Denies SI. Denies AVH. Slightly disinhibited. Talkative. Slept well. Mental Status Exam Mental Status Exam Narrative: Pt is alert and oriented; today one fleeting odd moment of dysregulated and bizarre behavior; seemed to resolve on its own and thus forward behavior is cooperative, friendly and calm; patient is not in distress; dressed in casual attire, clean shaven and with good grooming and hygiene; mood is described as good and affect congruent; eye contact appropriate; Speech is normal rate, volume and prosody and not pressured; no psychomotor agitation/retardation present; thought process is organized and goal directed; Thought content is on tx; otherwise pertinent to relevant topics and without any delusional content, paranoid ideations or grandiosity; denies any SI/HI. Denies AVH and there is no evidence of perceptual disturbance. Patients insight and judgment appear intact. Diagnostics Vital Signs (24Hr): Vital Signs - 24 hr 03/14/25 20:00 Temperature 98.6 F Pulse Rate 100 Respiratory Rate 18 Blood Pressure 124/77 Pulse Oximetry 95 Oxygen Delivery Method Room Air BMI result Body Mass Index 31.9 Labs 03/04/25 05:12 03/05/25 08:58 Labs: Laboratory Results - last 48 hr 03/14/25 12:43 Absolute Neuts (auto) 5.6 Medications Medications Current Medications Acetaminophen (Acetaminophen 325 Mg Tablet) 650 mg PO Q6H PRN PRN Reason: Headache/Pain, Scale 1-10 Al Hydroxide/Mg Hydroxide (Magnesium Hydrox/Alum Hydrox 30 Ml Oral.Susp) 30 ml PO Q6H PRN PRN Reason: Heartburn/Nausea Aripiprazole (Aripiprazole 10 Mg Tablet) 10 mg PO DAILY@1730 [facility] Last Admin: 03/14/25 17:11 Dose: 10 mg Ascorbic Acid (Ascorbic Acid 500 Mg Tablet) 500 mg PO DAILY [facility] Last Admin: 03/14/25 08:37 Dose: 500 mg Clozapine (Clozapine 25 Mg Tablet) 25 mg PO DAILY@1999 [facility] Last Admin: 03/14/25 20:30 Dose: 25 mg Clozapine (Clozapine 100 Mg Tablet) 300 mg PO DAILY@1999 [facility] Last Admin: 03/14/25 20:29 Dose: 300 mg Divalproex Sodium (Divalproex Sodium 500 Mg Tablet.) 1,000 mg PO DAILY@1999 [facility] Last Admin: 03/14/25 20:29 Dose: 1,000 mg Ferrous Sulfate (Ferrous Sulfate 324 Mg Tablet.) 324 mg PO DAILY [facility] Last Admin: 03/14/25 08:37 Dose: 324 mg Finasteride (Finasteride 5 Mg Tablet) 5 mg PO DAILY [facility] Last Admin: 03/14/25 08:37 Dose: 5 mg Lorazepam (Lorazepam 1 Mg Tablet) 1 mg PO TID [facility] Last Admin: 03/14/25 20:30 Dose: 1 mg Magnesium Hydroxide (Milk Of Magnesia 30 Ml Oral.Susp) 5 ml PO BEDTIME [facility] Last Admin: 03/14/25 20:30 Dose: 5 ml Magnesium Hydroxide (Milk Of Magnesia 30 Ml Oral.Susp) 30 ml PO DAILY PRN PRN Reason: Constipation Memantine (Memantine Hcl 10 Mg Tablet) 10 mg PO DAILY [facility] Last Admin: 03/14/25 08:37 Dose: 10 mg Mirtazapine (Mirtazapine 7.5 Mg Tablet) 22.5 mg PO BEDTIME@1999 [facility] Last Admin: 03/14/25 20:29 Dose: 22.5 mg Olanzapine (Olanzapine Odt 10 Mg Tab.Rapdis) 5 mg TRANSLINGU BID PRN PRN Reason: agitation Polyethylene Glycol (Polyethylene Glycol 3350 17 Gm Powd.Pack) 17 gm PO DAILY [facility] Last Admin: 03/14/25 08:37 Dose: 17 gm Pramipexole Dihydrochloride (Pramipexole Di-Hcl 0.25 Mg Tablet) 0.5 mg PO TID [facility] Last Admin: 03/14/25 20:30 Dose: 0.5 mg Tamsulosin HCl (Tamsulosin Hcl 0.4 Mg Capsule) 0.8 mg PO BEDTIME [facility] Last Admin: 03/14/25 20:29 Dose: 0.8 mg Thiamine HCl (Thiamine Hcl 100 Mg Tablet) 100 mg PO DAILY [facility] Last Admin: 03/14/25 08:36 Dose: 100 mg Trazodone HCl (Trazodone Hcl 50 Mg Tablet) 50 mg PO BEDTIME [facility] Last Admin: 03/14/25 20:29 Dose: 50 mg Venlafaxine HCl (Venlafaxine Hcl Er 150 Mg Cap.Er.24h) 150 mg PO BEDTIME [facility] Last Admin: 03/14/25 20:29 Dose: 150 mg Allergies Allergies Allergy/AdvReac Type Severity Reaction Status Date / Time No Known Allergies (NKA) Allergy Unknown NONE Verified 02/28/25 02:52 Assessment & Plan Assessment & Plan (1) Schizoaffective disorder: Status: Acute Code(s): F25.9 - Schizoaffective disorder, unspecified (2) Catatonia: Status: Resolved Code(s): F06.1 - Catatonic disorder due to known physiological condition (3) Tardive dyskinesia: Status: Acute Code(s): G24.01 - Drug induced subacute dyskinesia Plan hpi: Mr. Tenorio is a 59 year-old male with a hx of schizoaffective disorder, multiple bouts of catatonia, who was recently discharged from on 12/30/2024 after prolonged admission for catatonia. Patient was transferred from his longterm instead of catatonia, covered in feces and urine, initially not verbally responding but was able to follow commands. Patient was started on Ativan 1 mg t.i.d. which although not typically that helpful for this patient, seems to have helped treat his catatonic symptoms and patient began eating and talking. On M5 unit, patient says he is not sure what happened. He said he was taking his medications as far as I know and then only remembers being taken to the hospital but is unaware of any of the circumstances surrounding it. He says he is feeling much better now and thinks that he is getting close to being back to baseline. Agrees with extending ketamine treatments as that has helped most in the past. Formulation/clinical reasoning: Patient seems to doing better; typically Ativan does not work with patient but it seems to be helping now. Patient will get ketamine treatment starting tomorrow with which he agrees Hospital course: 03/06Patient reports he is doing well feels pretty much back to his regular self. Patient asked technical writer several questions about his treatment, medications and plans; also asked technical writer about his own career and engaged in a pleasant, polite discourse. Patient agrees with treatment plan including increasing Namenda and remaining on scheduled Ativan. He understands he is being tapered off Zoloft. Patient got ketamine today he says he thinks it is helpful agrees to get it next week as well -just getting out of catatonic state; highly vulnerable to regression 03/07 patient remains doing well, eating, talking, going to groups; attending to ADLs and patient took a shower today. Sitting in the day room, mostly keeping to himself but friendly on approach. Discussed treatment plans and he agrees with ketamine -discussed case with Dr. Huerta and trying to see if it is possible for patient to get ketamine as an outpatient 03/08 urinated on the floor, but otherwise remains improved, in the milue more, eating, drinking, talking and asking questions. Pt asked about tx plan and when he might discharge and agreed with plan 03/09 This morning patient is bedding smelled of urine however he got up, showered, washed all his clothes and had his bedding changed. Patient reports he is good feeling well. Walked with technical writer down the diaz and talked and patient says he thinks he will be getting ready to go home soon but wants to stay for continued treatment of ketamine. Asked staff if he could shave 03/10 continue current treatment plan; ketamine scheduled for Monday and 03/12No change in presentation, remains overall feeling better, says he is in a good mood, eating and drinking well, out in the milieu (though keeping to himself). Agrees to get ketamine on and retracted 3 day notice. Left eye looks little swollen though patient says he does not notice (ordered warm compress) -discussed with Dr. Huerta on trying to see if patient can get ketamine as an outpatient by periodically coming to [facility] infusion center 03/13/25: Visable in milieu post treatment. Asking to attend to ADL's, shave. Reports he slept well and feels well. Denies current questions/concerns regarding medicines/treatment. Denies SI,HI, AH,VH. Smiling and joking with the team this afternoon briefly. 03/14 pt had odd event this morning. When nurse came in he was talking in giberish; then he tried to grab stuff off her cart and then advanced toward her and tried to tickle her saying, tickle, tickle, tickle and nurse had to back away and fend off (which she was able to do). However, this resolved on its own. And about 1/2 hour later, patient was back to being organized, polite, cooperative and organized in speech and behavior. He did not remember that he did this and was apologetic. He understood that this will delay his discharge which he said he felt fine about. Of note patient was dressed in regular clothes, well-groomed, clean-shaven and talkative, asking technical writer appropriate questions and having a given and take dialogue -technical writer called outpatient psychiatric provider and left voicemail -technical writer expects patient to remain doing overall well to be able to discharge on Thursday 03/15: Continue current management and treatment plan. Possible DC Monday. MED CHANGES: this admission 1.Started Ativan 1 mg t.i.d. 2.Increased Namenda to 10 mg daily (up from 5 mg) 3.Discontinued sertraline Plan: CV Q 15 minute checks Started Ativan 1 mg t.i.d. Increased Namenda to 10 mg daily (up from 5 mg) Discontinued sertraline ketamine treatments twice a week Continue home medication Patient educated on: diagnosis, medication risk/benefits and therapeutic strategies Informed Consent: understands Reason for continued inpatient stay Substantial Risk for: rapid decompensation Time Spent With Patient Time: Total time managing care of this patient today ____ minutes.
[2025-03-15] MEDS: Ferrous Sulfate 324 MG TABLET.DR PO (09:17)
[2025-03-15 20:00] VITALS: BP 123/67; PULSE 89; RESP 20; TEMP 37; O2SAT 94
[2025-03-15] MEDS: Venlafaxine HCl ER 150 MG CAP.ER.24H PO (22:12)
[2025-03-15] MEDS: Milk of Magnesia 30 ML ORAL.SUSP 5 ML PO (22:12)
[2025-03-16 08:01] VITALS: BP 135/72; PULSE 83; RESP 18; TEMP 36.6; O2SAT 89
[2025-03-16] MEDS: Ferrous Sulfate 324 MG TABLET.DR PO (08:38)
--- NOTE | 2025-03-16 08:59 | P.PNPSI_ITS ---
Subjective Subjective Date of Service: 03/16/25 Reason For Visit: Catatonia Interim History: met with patient; discussed with team Remains improved. Pleasant and cooperative. Denies hallucinations. Slept well. Appetite good. Hopeful for DC soon. Denies SI. Mental Status Exam Mental Status Exam Narrative: Pt is alert and oriented; today one fleeting odd moment of dysregulated and bizarre behavior; seemed to resolve on its own and thus forward behavior is cooperative, friendly and calm; patient is not in distress; dressed in casual attire, clean shaven and with good grooming and hygiene; mood is described as good and affect congruent; eye contact appropriate; Speech is normal rate, volume and prosody and not pressured; no psychomotor agitation/retardation present; thought process is organized and goal directed; Thought content is on tx; otherwise pertinent to relevant topics and without any delusional content, paranoid ideations or grandiosity; denies any SI/HI. Denies AVH and there is no evidence of perceptual disturbance. Patients insight and judgment appear intact. Diagnostics Vital Signs (24Hr): Vital Signs - 24 hr 03/15/25 20:00 03/16/25 08:01 Temperature 98.6 F 97.8 F Pulse Rate 89 83 Respiratory Rate 20 18 Blood Pressure 123/67 135/72 Pulse Oximetry 94 89 L Oxygen Delivery Method Room Air Room Air BMI result Body Mass Index 31.9 Labs 03/04/25 05:12 03/05/25 08:58 Labs: Laboratory Results - last 48 hr 03/14/25 12:43 Absolute Neuts (auto) 5.6 Medications Medications Current Medications Acetaminophen (Acetaminophen 325 Mg Tablet) 650 mg PO Q6H PRN PRN Reason: Headache/Pain, Scale 1-10 Al Hydroxide/Mg Hydroxide (Magnesium Hydrox/Alum Hydrox 30 Ml Oral.Susp) 30 ml PO Q6H PRN PRN Reason: Heartburn/Nausea Aripiprazole (Aripiprazole 10 Mg Tablet) 10 mg PO DAILY@1730 [facility] Last Admin: 03/15/25 17:26 Dose: 10 mg Ascorbic Acid (Ascorbic Acid 500 Mg Tablet) 500 mg PO DAILY [facility] Last Admin: 03/16/25 08:37 Dose: 500 mg Clozapine (Clozapine 25 Mg Tablet) 25 mg PO DAILY@1999 [facility] Last Admin: 03/15/25 22:12 Dose: 25 mg Clozapine (Clozapine 100 Mg Tablet) 300 mg PO DAILY@1999 [facility] Last Admin: 03/15/25 22:12 Dose: 300 mg Divalproex Sodium (Divalproex Sodium 500 Mg Tablet.) 1,000 mg PO DAILY@1999 [facility] Last Admin: 03/15/25 22:12 Dose: 1,000 mg Ferrous Sulfate (Ferrous Sulfate 324 Mg Tablet.) 324 mg PO DAILY [facility] Last Admin: 03/16/25 08:38 Dose: 324 mg Finasteride (Finasteride 5 Mg Tablet) 5 mg PO DAILY [facility] Last Admin: 03/16/25 08:37 Dose: 5 mg Lorazepam (Lorazepam 1 Mg Tablet) 1 mg PO TID [facility] Last Admin: 03/16/25 08:38 Dose: 1 mg Magnesium Hydroxide (Milk Of Magnesia 30 Ml Oral.Susp) 5 ml PO BEDTIME [facility] Last Admin: 03/15/25 22:12 Dose: 5 ml Magnesium Hydroxide (Milk Of Magnesia 30 Ml Oral.Susp) 30 ml PO DAILY PRN PRN Reason: Constipation Memantine (Memantine Hcl 10 Mg Tablet) 10 mg PO DAILY [facility] Last Admin: 03/16/25 08:37 Dose: 10 mg Mirtazapine (Mirtazapine 7.5 Mg Tablet) 22.5 mg PO BEDTIME@1999 [facility] Last Admin: 03/15/25 22:12 Dose: 22.5 mg Olanzapine (Olanzapine Odt 10 Mg Tab.Rapdis) 5 mg TRANSLINGU BID PRN PRN Reason: agitation Polyethylene Glycol (Polyethylene Glycol 3350 17 Gm Powd.Pack) 17 gm PO DAILY [facility] Last Admin: 03/15/25 09:18 Dose: 17 gm Pramipexole Dihydrochloride (Pramipexole Di-Hcl 0.25 Mg Tablet) 0.5 mg PO TID [facility] Last Admin: 03/16/25 08:38 Dose: 0.5 mg Tamsulosin HCl (Tamsulosin Hcl 0.4 Mg Capsule) 0.8 mg PO BEDTIME [facility] Last Admin: 03/15/25 22:12 Dose: 0.8 mg Thiamine HCl (Thiamine Hcl 100 Mg Tablet) 100 mg PO DAILY [facility] Last Admin: 03/16/25 08:38 Dose: 100 mg Trazodone HCl (Trazodone Hcl 50 Mg Tablet) 50 mg PO BEDTIME [facility] Last Admin: 03/15/25 22:12 Dose: 50 mg Venlafaxine HCl (Venlafaxine Hcl Er 150 Mg Cap.Er.24h) 150 mg PO BEDTIME [facility] Last Admin: 03/15/25 22:12 Dose: 150 mg Allergies Allergies Allergy/AdvReac Type Severity Reaction Status Date / Time No Known Allergies (NKA) Allergy Unknown NONE Verified 02/28/25 02:52 Assessment & Plan Assessment & Plan (1) Schizoaffective disorder: Status: Acute Code(s): F25.9 - Schizoaffective disorder, unspecified (2) Catatonia: Status: Resolved Code(s): F06.1 - Catatonic disorder due to known physiological condition (3) Tardive dyskinesia: Status: Acute Code(s): G24.01 - Drug induced subacute dyskinesia Plan hpi: Mr. Tenorio is a 59 year-old male with a hx of schizoaffective disorder, multiple bouts of catatonia, who was recently discharged from on 12/30/2024 after prolonged admission for catatonia. Patient was transferred from his custodial instead of catatonia, covered in feces and urine, initially not verbally responding but was able to follow commands. Patient was started on Ativan 1 mg t.i.d. which although not typically that helpful for this patient, seems to have helped treat his catatonic symptoms and patient began eating and talking. On M5 unit, patient says he is not sure what happened. He said he was taking his medications as far as I know and then only remembers being taken to the hospital but is unaware of any of the circumstances surrounding it. He says he is feeling much better now and thinks that he is getting close to being back to baseline. Agrees with extending ketamine treatments as that has helped most in the past. Formulation/clinical reasoning: Patient seems to doing better; typically Ativan does not work with patient but it seems to be helping now. Patient will get ketamine treatment starting tomorrow with which he agrees Hospital course: 03/06Patient reports he is doing well feels pretty much back to his regular self. Patient asked sign writer letterer or painter several questions about his treatment, medications and plans; also asked sign writer letterer or painter about his own career and engaged in a pleasant, polite discourse. Patient agrees with treatment plan including increasing Namenda and remaining on scheduled Ativan. He understands he is being tapered off Zoloft. Patient got ketamine today he says he thinks it is helpful agrees to get it next week as well -just getting out of catatonic state; highly vulnerable to regression 03/07 patient remains doing well, eating, talking, going to groups; attending to ADLs and patient took a shower today. Sitting in the day room, mostly keeping to himself but friendly on approach. Discussed treatment plans and he agrees with ketamine -discussed case with Dr. Huerta and trying to see if it is possible for patient to get ketamine as an outpatient 03/08 urinated on the floor, but otherwise remains improved, in the milue more, eating, drinking, talking and asking questions. Pt asked about tx plan and when he might discharge and agreed with plan 03/09 This morning patient is bedding smelled of urine however he got up, showered, washed all his clothes and had his bedding changed. Patient reports he is good feeling well. Walked with sign writer letterer or painter down the diaz and talked and patient says he thinks he will be getting ready to go home soon but wants to stay for continued treatment of ketamine. Asked staff if he could shave 03/10 continue current treatment plan; ketamine scheduled for Monday and 03/12No change in presentation, remains overall feeling better, says he is in a good mood, eating and drinking well, out in the milieu (though keeping to himself). Agrees to get ketamine on and retracted 3 day notice. Left eye looks little swollen though patient says he does not notice (ordered warm compress) -discussed with Dr. Huerta on trying to see if patient can get ketamine as an outpatient by periodically coming to [facility] infusion center 03/13/25: Visable in milieu post treatment. Asking to attend to ADL's, shave. Reports he slept well and feels well. Denies current questions/concerns regarding medicines/treatment. Denies SI,HI, AH,VH. Smiling and joking with the team this afternoon briefly. 03/14 pt had odd event this morning. When nurse came in he was talking in giberish; then he tried to grab stuff off her cart and then advanced toward her and tried to tickle her saying, tickle, tickle, tickle and nurse had to back away and fend off (which she was able to do). However, this resolved on its own. And about 1/2 hour later, patient was back to being organized, polite, cooperative and organized in speech and behavior. He did not remember that he did this and was apologetic. He understood that this will delay his discharge which he said he felt fine about. Of note patient was dressed in regular clothes, well-groomed, clean-shaven and talkative, asking sign writer letterer or painter appropriate questions and having a given and take dialogue -sign writer letterer or painter called outpatient psychiatric provider and left voicemail -sign writer letterer or painter expects patient to remain doing overall well to be able to discharge on Thursday 03/15: Continue current management and treatment plan. Possible DC Monday. MED CHANGES: this admission 1.Started Ativan 1 mg t.i.d. 2.Increased Namenda to 10 mg daily (up from 5 mg) 3.Discontinued sertraline Plan: CV Q 15 minute checks Started Ativan 1 mg t.i.d. Increased Namenda to 10 mg daily (up from 5 mg) Discontinued sertraline ketamine treatments twice a week Continue home medication Patient educated on: diagnosis, medication risk/benefits and therapeutic strategies Informed Consent: understands Reason for continued inpatient stay Substantial Risk for: rapid decompensation Time Spent With Patient Time: Total time managing care of this patient today ____ minutes.
[2025-03-16 20:00] VITALS: BP 121/57; PULSE 88; RESP 18; TEMP 36.4; O2SAT 97
[2025-03-16] MEDS: Venlafaxine HCl ER 150 MG CAP.ER.24H PO (21:10)
[2025-03-16] MEDS: Milk of Magnesia 30 ML ORAL.SUSP 5 ML PO (21:10)
[2025-03-17 08:00] VITALS: BP 135/63; PULSE 92; TEMP 36.3; O2SAT 95
[2025-03-17] MEDS: Ferrous Sulfate 324 MG TABLET.DR PO (08:33)
--- NOTE | 2025-03-17 10:05 | P.DS_ITS ---
DS: Providers Provider Date of admission: 03/04/25 16:39 Date of discharge: 03/17/25 Primary care physician: Jonn Smith MD Attending physician on admission: Anthony George Discharging clinician: Steven Huerta DS: Diagnosis Discharge Diagnosis (1) Schizoaffective disorder: Status: Acute (2) Catatonia: Status: Resolved (3) Tardive dyskinesia: Status: Acute DS: Medications Discharge Medications Home Medications: Home Medications ?Medication ?Instructions ?Recorded ?Confirmed magnesium hydroxide 400 mg/5 mL 400 mg PO BEDTIME 09/1803/01/25 oral suspension (Milk of Magnesia) Previous Rx's ?Medication ?Instructions ?Recorded acetaminophen 325 mg tablet 650 mg (2 x 325 mg) PO Q6H PRN 12/31/24 Headache/Pain, Scale 1-10 30 days #60 tabs aripiprazole 10 mg tablet 10 mg PO DAILY@1729 30 days #30 12/31/24 tabs clozapine 100 mg tablet 300 mg (3 x 100 mg) PO DAILY @199912/31/24 30 days #90 tabs clozapine 25 mg tablet 25 mg PO DAILY@1999 30 days #30 12/31/24 tabs divalproex 250 mg tablet,delayed 1,000 mg (4 x 250 mg) PO 12/31/24 release DAILY@1999 30 days #120 tabs finasteride 5 mg tablet 5 mg PO DAILY 30 days #30 ta bs 12/31/24 olanzapine 10 mg disintegrating 5 mg (1/2 x 10 mg) tra nslingual 12/31/24 tablet BID PRN agitation 30 days #3 0 tabs pramipexole 0.5 mg tablet 0.5 mg PO TID 30 days #90 ta bs 12/31/24 tamsulosin 0.4 mg capsule 0.8 mg (2 x 0.4 mg) PO BEDTI ME 30 12/31/24 days #60 caps trazodone 50 mg tablet 50 mg PO BEDTIME PRN Insomni a 30 12/31/24 days #30 tabs mirtazapine 15 mg tablet 22.5 mg (1.5 x 15 mg) PO BED TIME 01/02/25 30 days #45 tabs ascorbic acid (vitamin C) 500 mg 500 mg PO DAILY 30 da ys #30 tabs 01/15/25 tablet (Vitamin C) ferrous sulfate 324 mg (65 mg 324 mg PO DAILY #30 tabs 01/30/25 iron) tablet,delayed release magnesium hydroxide 400 mg/5 mL 5 ml PO BEDTIME #500 m L 02/12/25 oral suspension (Milk of Magnesia) thiamine mononitrate (vit B1) 100 100 mg PO DAILY 30 d ays #30 tabs 02/12/25 mg tablet polyethylene glycol 3350 17 gram 17 g PO DAILY 30 days #30 packets 02/26/25 oral powder packet lorazepam 1 mg tablet 1 mg PO TID 30 days #90 tabs 03/14/25 memantine 10 mg tablet (Namenda) 10 mg PO QAM 30 days #30 tabs 03/14/25 venlafaxine 150 mg 150 mg PO BEDTIME 30 days #3 0 caps 03/14/25 capsule,extended release 24 hr Mental Status Exam Mental Status Exam Narrative: Pt is alert and oriented behavior is cooperative, friendly and calm; patient is not in distress; dressed in casual attire, clean shaven and with good grooming and hygiene; mood is described as good and affect congruent; eye contact appropriate; Speech is normal rate, volume and prosody and not pressured; no psychomotor agitation/retardation present; thought process is organized and goal directed; Thought content is on tx and returning home; otherwise pertinent to relevant topics and without any delusional content, paranoid ideations or grandiosity; denies any SI/HI. Denies AVH and there is no evidence of perceptual disturbance. Patients insight and judgment appear intact. Impulse control adequate No SI or HI no combative behavior Data Data Completed and Pending Completed studies during hospitalization [Text1]: 03/14/25 12:43 Absolute Neuts (auto) 5.6 DS: Summary Hospital Course Hospital Course: [address] [address] Psychiatry Admission Note (In) Signed Patient: Benjamin Tenorio MR#: [id number] : 1965 Acct:[id number] Age/Sex: 59 / M Loc: .PM5 507-[address]: Anthony George MD cc: Anthony George MD~ HPI Date of Service: 03/05/25 Chief Complaint: Catatonia Sources of Information: patient interviewed, chart reviewed and crisis/core team assessment reviewed HPI Subjective Notes: [place] Warning and Conditional Voluntary Narrative: Patient seen at 12 noon on 03/05/2025 Mr. Tenorio is a 59 year-old male with a hx of schizoaffective disorder, multiple bouts of catatonia, who was recently discharged from on 12/30/2024 after prolonged admission for catatonia. Patient was transferred from his nursing home instead of catatonia, covered in feces and urine, initially not verbally responding but was able to follow commands. Patient was started on Ativan 1 mg t.i.d. which although not typically that helpful for this patient, seems to have helped treat his catatonic symptoms and patient began eating and talking. On M5 unit, patient says he is not sure what happened. He said he was taking his medications as far as I know and then only remembers being taken to the hospital but is unaware of any of the circumstances surrounding it. He says he is feeling much better now and thinks that he is getting close to being back to baseline. Agrees with extending ketamine treatments as that has helped most in the past. Past Psychiatric History: Inpatient: M5 04/17/2023-05/02/2023; M3 03/06/2023-02/2023; 01/04/2023-02/02/2023; 06/13/2022-07/19/2022; S1 12/2023; 04/2024; S1 on 07/2024-10/08/2024 (after prolonged admission for catatonia) OP: [facility] Past medication trials: clozaril, ativan, sertraline, olanzapine, Ketamine (for catatonia) Medical Evaluation Reviewed: Yes [facility] Medical History Tardive dyskinesia Hospital discharge follow-up Mild sleep apnea Nocturnal hypoxia Routine medical exam Joint inflammation of right hand and wrist Status post fall Adult general medical exam Screening for colon cancer Screening for prostate cancer Cough BPH (benign prostatic hyperplasia) Surgical History History of colonoscopy (~06/15/21) History of tooth extraction History of root canal procedure Family History: none Social History: never . Currently lives in from [facility]. Substance History: No current substance abuse Trauma History: unknown Diagnostics Vital Signs (24Hr): Vital Signs - 24 hr 03/04/25 14:40 03/04/25 17:45 03/04/25 19:45 Temperature 98.2 F 98.1 F Pulse Rate 80 81 75 Respiratory Rate 14 16 16 Blood Pressure 120/53 L 116/64 115/61 Pulse Oximetry 92 95 95 Oxygen Delivery Method Room Air Room Air Room Air 03/05/25 08:00 Temperature 97.6 F Pulse Rate 96 Respiratory Rate Blood Pressure 130/73 Pulse Oximetry 93 Oxygen Delivery Method Room Air BMI result Body Mass Index 29.1 Labs 03/04/25 05:12 document embedded image 03/05/25 08:58 document embedded image Labs: Laboratory Results - last 48 hr 03/04/25 03/05/25 05:12 08:58 WBC 5.6 RBC 4.33 L Hgb 12.7 L Hct 38.7 L MCV 89.4 MCH 29.3 MCHC 32.8 RDW 12.9 Plt Count 121 L MPV 11.1 Immature Gran % (Auto) 1.3 H Neut % (Auto) 54.9 Lymph % (Auto) 34.1 Mineral % (Auto) 9.3 Eos % (Auto) 0.0 Baso % (Auto) 0.4 Lymph # (Auto) 1.9 Mineral # (Auto) 0.5 Eos # (Auto) 0.0 Baso # (Auto) 0.0 Abs Immat Gran (auto) 0.07 H Absolute Neuts (auto) 3.1 Absolute Nucleated RBC 0.000 Nucleated RBC % (auto) 0.0 Sodium 142 142 Potassium 4.6 4.6 Chloride 107 105 Carbon Dioxide 28 31 H Anion Gap 12 11 L BUN 36 H 31 H Creatinine 1.52 H 1.52 H Estim Creat Clear Calc 60.7 59.8 Estimated GFR 47 47 Random Glucose 91 107 Estimat Average Glucose 108 Hemoglobin A1c % 5.4 Calcium 8.7 9.3 D Total Bilirubin 0.4 AST 17 ALT 16 Alkaline Phosphatase 59 Total Protein 7.0 Albumin 4.4 Triglycerides 96 Cholesterol 181 LDL Cholesterol, Calc 116 H HDL Cholesterol 46 TSH 0.32 Meds/Allergies Meds Home Medications Medication Instructions Recorded Confirmed Type magnesium hydroxide 400 mg/5 mL 400 mg PO BEDTIME 03/01/25 03/01/25 History oral suspension (Milk of Magnesia) venlafaxine 150 mg 150 mg PO BEDTIME 03/01/25 03/01/25 History capsule,extended release 24 hr venlafaxine 75 mg tablet,extended 75 mg PO DAILY 03/01/25 03/01/25 History release 24 hr Allergies Allergies Allergy/AdvReac Type Severity Reaction Status Date / Time No Known Allergies (NKA) Allergy Unknown NONE Verified 02/28/25 02:52 Mental Status Exam Mental Status Exam Narrative: Pt is alert and oriented; behavior is calm come quiet, cooperative, friendly on approach; patient is not in distress; dressed in casual attire, disheveled; mood is described as good and affect blunted; eye contact limited; Speech is latent, a little soft; psychomotor retardation present; thought process is goal directed; Thought content is vacuous; otherwise pertinent to relevant topics and without any delusional content, paranoid ideations or grandiosity; denies any SI/HI. Denies AVH and there is no evidence of perceptual disturbance. Patients insight and judgment impaired but improving Assessment & Plan Assessment & Plan (1) Schizoaffective disorder: Status: Acute Code(s): F25.9 - Schizoaffective disorder, unspecified Plan hpi: Mr. Tenorio is a 59 year-old male with a hx of schizoaffective disorder, multiple bouts of catatonia, who was recently discharged from on 12/30/2024 after prolonged admission for catatonia. Patient was transferred from his nursing home instead of catatonia, covered in feces and urine, initially not verbally responding but was able to follow commands. Patient was started on Ativan 1 mg t.i.d. which although not typically that helpful for this patient, seems to have helped treat his catatonic symptoms and patient began eating and talking. On M5 unit, patient says he is not sure what happened. He said he was taking his medications as far as I know and then only remembers being taken to the hospital but is unaware of any of the circumstances surrounding it. He says he is feeling much better now and thinks that he is getting close to being back to baseline. Agrees with extending ketamine treatments as that has helped most in the past. Formulation/clinical reasoning: Patient seems to doing better; typically Ativan does not work with patient but it seems to be helping now. Patient will get ketamine treatment starting rashid orrow with which he agrees Plan: CV Q 15 minute checks Ativan 1 mg t.i.d. Start ketamine treatments twice a week Continue home medication Patient educated on: diagnosis and medication risk/benefits Informed Consent: understands Reason for continued inpatient stay Substantial Risk for: rapid decompensation Statement Statement: I have reviewed the history and physical and performed a pertinent examination on my patient. No changes have occurred unless specified. If the History and Physical was not performed prior to admission, the Hospitalist's service will be consulted for completing the admission physical. Time Spent With Patient Time: Total time managing care of this patient today ____ minutes. Dictated By: Anthony George MD Signed By: <Electronically signed by Anthony George MD> 03/05/25 1833 HOSPITAL COURSE Hospital course: 03/06Patient reports he is doing well feels pretty much back to his regular self. Patient asked marine underwriter several questions about his treatment, medications and plans; also asked marine underwriter about his own career and engaged in a pleasant, polite discourse. Patient agrees with treatment plan including increasing Namenda and remaining on scheduled Ativan. He understands he is being tapered off Zoloft. Patient got ketamine today he says he thinks it is helpful agrees to get it next week as well -just getting out of catatonic state; highly vulnerable to regression 03/07 patient remains doing well, eating, talking, going to groups; attending to ADLs and patient took a shower today. Sitting in the day room, mostly keeping to himself but friendly on approach. Discussed treatment plans and he agrees with ketamine -discussed case with Dr. Huerta and trying to see if it is possible for patient to get ketamine as an outpatient 03/08 urinated on the floor, but otherwise remains improved, in the milue more, eating, drinking, talking and asking questions. Pt asked about tx plan and when he might discharge and agreed with plan 03/09 This morning patient is bedding smelled of urine however he got up, showered, washed all his clothes and had his bedding changed. Patient reports he is good feeling well. Walked with marine underwriter down the diaz and talked and patient says he thinks he will be getting ready to go home soon but wants to stay for continued treatment of ketamine. Asked staff if he could shave 03/10 continue current treatment plan; ketamine scheduled for Monday and 03/12No change in presentation, remains overall feeling better, says he is in a good mood, eating and drinking well, out in the milieu (though keeping to hims elf). Agrees to get ketamine on and retracted 3 day notice. Left eye looks little swollen though patient says he does not notice (ordered warm compress) -discussed with Dr. Huerta on trying to see if patient can get ketamine as an outpatient by periodically coming to [facility] infusion center 03/13/25: Visable in milieu post treatment. Asking to attend to [facility]cal[facility]. Reports he slept well and feels well. Denies current questions/concerns regarding medicines/treatment. Denies SI,HI, AH,VH. Smiling and joking with the team this afternoon briefly. 03/14 pt had odd event this morning. When nurse came in he was talking in giberish; then he tried to grab stuff off her cart and then advanced toward her and tried to tickle her saying, tickle, tickle, tickle and nurse had to back away and fend off (which she was able to do). However, this resolved on its own. And about 1/2 hour later, patient was back to being organized, polite, cooperative and organized in speech and behavior. He did not remember that he did this and was apologetic. He understood that this will delay his discharge which he said he felt fine about. Of note patient was dressed in regular clothes, well-groomed, clean-shaven and talkative, asking marine underwriter appropriate questions and having a given and take dialogue -marine underwriter called outpatient psychiatric provider and left voicemail -marine underwriter expects patient to remain doing overall well to be able to discharge on Thursday 03/15: Continue current management and treatment plan. MED CHANGES: this admission 1.Started Ativan 1 mg t.i.d. 2.Increased Namenda to 10 mg daily (up from 5 mg) 3.Discontinued sertraline 03/17/2025 PATIENT SEEN CHART REVIEWED. PATIENT has continued on clozapine Abilify sertraline discontinued Namenda increased to 10 mg. Lorazepam 1 t.i.d. to see if can help contribute to avoidance of recurrent catatonia. Patient did have a short series of treatments with intravenous ketamine along with Ativan clozapine Abilify Namenda appeared to be helpful. Patient was pleasant calm alert and oriented future oriented denied hallucinations no delusional material noted felt good about returning to home nursing home in [place]. Patient were seen in the [facility] Emergency room again for psychiatric reasons if catatonic symptoms would start ketamine for catatonia in the emergency room as possible. No gross side effects noted patient alert and oriented full affect feels good about how he is feeling mood stable no bizarre behavior Patient will follow-up in nursing home setting Status at Discharge Cognitive/behavioral status at discharge: Alert oriented calm cooperative Functional status at discharge: independent ambulation Overall status at discharge: patient is back to baseline Time Spent with Patient Time attestation: Total time managing care of this patient today _38___ minutes. Discharge Plan Discharge Anticipated Discharge Date/Time: 03/17/25 11:00 Patient Disposition: Home Health Service Discharge Diagnosis: schizoaffective disorder catatonia Referrals: [facility] Therapy with Wanda Hutchisonar [Other] - 03/25/25 8:30 am Referral Note: Please follow up with [facility] for your therapy appointment. Jonn Smith MD [Primary Care Provider, Internal Medicine] - 03/21/25 10:30 am Referral Note: Appointment 03/21/2025 at 10:30 a.m. Discharge Medications: New lorazepam 1 mg Tablet 1 mg PO TID 30 Days Qty: 90 0RF Continued ascorbic acid (vitamin C) [Vitamin C] 500 mg tablet 500 mg PO DAILY 30 Days Qty: 30 1RF ferrous sulfate 324 mg (65 mg iron) tablet,delayed release (DR/EC) 324 mg PO DAILY Qty: 30 0RF magnesium hydroxide [Milk of Magnesia] 400 mg/5 mL suspension 5 ml PO BEDTIME Qty: 500 0RF thiamine mononitrate (vit B1) 100 mg tablet 100 mg PO DAILY 30 Days Qty: 30 0RF polyethylene glycol 3350 17 gram powder in packet 17 g PO DAILY 30 Days Qty: 30 1RF aripiprazole 10 mg Tablet 10 mg PO DAILY@1730 30 Days Qty: 30 1RF divalproex 250 mg tablet,delayed release (DR/EC) 1,000 mg PO DAILY@1999 30 Days Qty: 120 1RF olanzapine 10 mg Tablet,Disintegrating 5 mg translingual BID PRN (Reason: agitation) 30 Days Qty: 30 1RF trazodone 50 mg Tablet 50 mg PO BEDTIME PRN (Reason: Insomnia) 30 Days Qty: 30 1RF clozapine 100 mg tablet 300 mg PO DAILY@1999 30 Days Qty: 90 1RF clozapine 25 mg tablet 25 mg PO DAILY@1999 30 Days Qty: 30 1RF acetaminophen 325 mg Tablet 650 mg PO Q6H PRN (Reason: Headache/Pain, Scale 1-10) 30 Days Qty: 60 1RF pramipexole 0.5 mg tablet 0.5 mg PO TID 30 Days Qty: 90 1RF tamsulosin 0.4 mg Capsule 0.8 mg PO BEDTIME 30 Days Qty: 60 1RF finasteride 5 mg Tablet 5 mg PO DAILY 30 Days Qty: 30 1RF mirtazapine 15 mg tablet 22.5 mg PO BEDTIME 30 Days Qty: 45 3RF magnesium hydroxide [Milk of Magnesia] 400 mg/5 mL Suspension 400 mg PO BEDTIME venlafaxine 150 mg Capsule,Extended Release 24hr 150 mg PO BEDTIME 30 Days Qty: 30 0RF Changed memantine [Namenda] 10 mg tablet 10 mg PO QAM 30 Days Qty: 30 0RF Discontinued sertraline 100 mg Tablet 100 mg PO DAILY 30 Days Qty: 30 1RF venlafaxine 75 mg Tablet Extended Release 24hr 75 mg PO DAILY Rx Instructions: ONLY FOR 3 DAYS, THEN SWITCH TO 150 MG DAILY Discharge Orders: Discharge Order (Routine); Ordered 03/14/25 Ordered By: Anthony George Diet: Regular diet Activity on Discharge: As tolerated Stand Alone Forms: Patient Portal Discharge page, Community Support Print Language: Portuguese Care Plan Goals: Maintain mood and safe behaviors Take medications as prescribed Practice coping skills Continue with outpatient providers and reach out to them as needed Health Concerns: Mood stability and behaviors BPH Plan of Treatment: Follow up with your PCP, psychiatric provider and other outpatient providers regarding above concerns Take medications as prescribed Assessment: Risk assessment at time of discharge:? Patient was interviewed prior to discharge and found to be fully oriented and without any SI or HI. Patient has improved insight and judgment and wants to continue treatment. Patient is not in imminent risk of harm to self or others and has a safety plan that includes presenting to the closest ER or calling 911 if feeling unsafe.? Patient has been observed closely by nursing and unit staff throughout admission; patient has not engaged in any behaviors that suggest dangerousness to self or others and has demonstrated appropriate behaviors and impulse control
== END 2025-03-17 12:05 | disposition home health service (06) | DRG 885 ==
LOC: HO.ED 03-02 02:45 → HO.PM5 03-04 16:58
PROVIDERS: Emergency Medicine; Psychiatry & Neurology Psychiatry; Admitting Provider Psychiatry & Neurology Psychiatry; Emergency Provider Emergency Medicine; PCP Internal Medicine; Visit Provider Psychiatry & Neurology Psychiatry
DX: F25.9 Schizoaffective disorder, unspecified (principal); F06.1 Catatonic disorder due to known physiological condition; G24.01 Drug induced subacute dyskinesia; N40.1 Benign prostatic hyperplasia with lower urinary tract symptoms; R33.8 Other retention of urine; D50.9 Iron deficiency anemia, unspecified; K59.00 Constipation, unspecified; R13.10 Dysphagia, unspecified; Z20.822 Contact with and (suspected) exposure to COVID-19; Z79.899 Other long term (current) drug therapy
CPT/HCPCS: 36415; 70450; 71046; 80048; 80053; 80061; 80076; 80164; 80307; 81003; 82140; 82947; 83036; 83735; 84443; 84484; 85025; 85048; 87637; 93005; 99285; S9485

== ENCOUNTER → 2025-02-28 02:12 | Outpatient (BNV) | payer MEDICARE, MEDICAID, SELFPAY | PROVIDERS: Emergency Provider Emergency Medicine; PCP Internal Medicine; Visit Provider Internal Medicine | DX: R41.82 Altered mental status, unspecified (principal) | CPT/HCPCS: 93010 ==

== ENCOUNTER → 2025-02-28 02:54 | Outpatient (BNV) | payer MEDICARE, MEDICAID, SELFPAY | PROVIDERS: Emergency Provider Emergency Medicine; PCP Internal Medicine; Visit Provider Social Worker | DX: F25.1 Schizoaffective disorder, depressive type (principal); F06.1 Catatonic disorder due to known physiological condition; G24.01 Drug induced subacute dyskinesia | CPT/HCPCS: 90792; 99232 ==

== ENCOUNTER → 2025-02-28 04:07 | Outpatient (BNV) | payer MEDICARE, MEDICAID, SELFPAY | PROVIDERS: Emergency Provider Emergency Medicine; PCP Internal Medicine; Visit Provider Specialist | DX: R41.82 Altered mental status, unspecified (principal) | CPT/HCPCS: 70450 ==

== ENCOUNTER → 2025-03-02 02:45 | Outpatient (BNV) | payer MEDICARE, MEDICAID, SELFPAY | PROVIDERS: Emergency Provider Emergency Medicine; PCP Internal Medicine; Visit Provider Specialist | DX: R09.02 Hypoxemia (principal); R09.89 Other specified symptoms and signs involving the circulatory and respiratory systems | CPT/HCPCS: 71046 ==

== ENCOUNTER → 2025-03-04 16:39 | Outpatient (BNV) | payer MEDICARE, MEDICAID, SELFPAY | PROVIDERS: Admitting Provider Psychiatry & Neurology Psychiatry; Emergency Provider Emergency Medicine; PCP Internal Medicine; Visit Provider Nurse Practitioner Family | DX: N40.0 Benign prostatic hyperplasia without lower urinary tract symptoms (principal) | CPT/HCPCS: 99221 ==

== ENCOUNTER → 2025-03-04 16:39 | Outpatient (BNV) | payer MEDICARE, MEDICAID, SELFPAY | PROVIDERS: Admitting Provider Psychiatry & Neurology Psychiatry; Emergency Provider Emergency Medicine; PCP Internal Medicine; Visit Provider Psychiatry & Neurology Psychiatry | DX: F25.1 Schizoaffective disorder, depressive type (principal); F06.1 Catatonic disorder due to known physiological condition; G24.01 Drug induced subacute dyskinesia | CPT/HCPCS: 99239 ==